=== PATIENT | male | born 1960 | race Hispanic/Latino ===

== ENCOUNTER 2018-10-10 23:47 | Inpatient (IN) | payer MEDICARE ==
[~2018-10-10 23:47] MED LIST: QUELICIN ONE; VERSED IV ONE
[2018-10-11] MEDS ORDERED: NACL 0.9% 1000 ML 1,000 ML ONE (00:02)
[2018-10-11] MEDS ORDERED: NACL 0.9% 1000 ML 1,000 ML IV ONE ×4 (00:11→03:12)
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
[2018-10-11] MEDS ORDERED: ATIVAN IV ONE (00:15)
[2018-10-11] MEDS ORDERED: ATIVAN ONE (00:18)
[2018-10-11 00:36] LABS: Hematocrit 43.2 % (35.5-45.6); Hemoglobin 13.9 gm/dl (11.8-15.2); Mean Corpuscular HGB Conc 32 % (32-34); Mean Corpuscular Volume 98 fl (84-94); Platelet Count 266 K/mm3 (140-440); Red Blood Count 4.42 M/mm3 (3.65-5.03); Red Cell Distribution Width 15.4 % (13.2-15.2)
[2018-10-11 00:54] LABS: Albumin 2.9 g/dL (3.9-5); Calcium 7.7 mg/dL (8.4-10.2)
[2018-10-11] MEDS: NACL 0.9% IV SCH ×2 (00:55→10:24)
[2018-10-11] MEDS: ATIVAN IV SCH ×2 (00:55→10:24)
[2018-10-11] MEDS: VIAFLEX EMPTY CONTAINER IV SCH ×2 (00:55→10:24)
[2018-10-11] MEDS ORDERED: fentaNYL DRIP Premix 100 ML IV SCH (01:00)
[2018-10-11] MEDS ORDERED: MAXIPIME/NS 2 GM/100 ML 2 GM/100 ML BAG IV ONE (01:03)
[2018-10-11] MEDS: LEVOPHED DRIP 4 MG/NS 250 ML 4 MG/250 ML BAG IV SCH ×4 (01:19→10:13)
--- NOTE | 2018-10-11 01:22 | XRay Report ---
PROCEDURE: XR CHEST 1V AP TECHNIQUE: 4 AP portable views of the chest HISTORY: Intubation COMPARISONS: None FINDINGS: There is an endotracheal tube in place with the tip 8 cm proximal to the sherri. The cardiomediastina l silhouette appears normal. The lungs are clear. The bones and soft tissues are unremarkable. IMPRESSION: The endotracheal tube appears adequately positioned No acute findings This document is electronically signed by Emy Stiles MD., Oct 11 2018 01:20:10 AM ET
[2018-10-11 02:04] LABS: Amorphous Crystals,Urine 1+; Bilirubin,Urine NEG (Negative); Blood,Urine MOD (Negative); Color,Urine Yellow (Yellow); Mucus,Urine FEW /HPF; Sperm,Urine 2+ /HPF (NP)
[2018-10-11 02:10] LABS: Cannabinoid Screen,Urine PRESUMPTIVE NEGATIVE; Cocaine Screen,Urine PRESUMPTIVE NEGATIVE; Methadone Screen,Urine PRESUMPTIVE NEGATIVE
[2018-10-11 02:10] LABS: Chol/HDL Ratio 3.84 %
[2018-10-11 02:26] LABS: Amphetamine Screen,Urine PRESUMPTIVE POSITIVE; Benzodiazepines Screen,Urine PRESUMPTIVE POSITIVE; Opiate Screen,Urine PRESUMPTIVE POSITIVE
[2018-10-11] MEDS ORDERED: NACL 0.9% 1000 ML 2,000 ML IV ONE (03:06)
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
--- NOTE | 2018-10-11 03:35 | Cat Scan Report ---
PROCEDURE: CT ANGIOGRAM OF THE CHEST FOR PULMONARY EMBOLISM TECHNIQUE: Computerized axial tomographic angiography of the chest and pulmonary arteries was perfor med after the IV injection of iodinated nonionic contrast. The image data was postprocessed using max imum intensity projection (MIP) and 2-dimensional multiplanar reformatted (MPR) techniques. The exami nation is specifically tailored to the evaluation of the pulmonary arteries per clinical request. Au tomated exposure control, adjustment of mA and/or kV according to patient size, or iterative reconstr uction dose optimization techniques were utilized. CPT G9637, 70161 HISTORY: Shortness of breath R06.02, chest pain unspecified R07.9 , COMPARISONS: None . FINDINGS: Heart and pericardium: Normal. Thoracic aorta: There is no thoracic aortic aneurysm or dissection.. Pulmonary vasculature: Normal. No pulmonary emboli. Lymph nodes: No enlarged thoracic lymph nodes. Lungs: There is endobronchial mucous plugging at the lung bases bilaterally greater on the left. The re are infiltrates at the left lung base. There are scattered fibrotic changes. The lungs are well ex panded.. Pleural space: There is no pleural effusion or pneumothorax.. Musculoskeletal structures: No significant abnormality. Upper abdominal structures: No significant abnormality. IMPRESSION: There is no pulmonary embolism. There is no thoracic aortic aneurysm or dissection.. There is endobronchial mucous plugging at the lung bases bilaterally greater on the left. There are i nfiltrates at the left lung base. There are scattered fibrotic changes. The lungs are well expanded.. There is no pleural effusion or pneumothorax.. This document is electronically signed by Ketan Galindo MD., Oct 11 2018 03:33:44 AM ET
[2018-10-11] MEDS ORDERED: D50W (25GM) Syringe IV PRN (03:57)
[2018-10-11] MEDS ORDERED: HumuLIN R 100 UNITS in NACL 0.9% 99 ML IV SCH (04:00)
[2018-10-11] MEDS ORDERED: SODIUM CHLORIDE FLUSH SYRINGE 10 ML IV PRN (04:04)
[2018-10-11] MEDS ORDERED: ZOFRAN IV PRN (04:04)
[2018-10-11] MEDS ORDERED: VANCOMYCIN 1,250 MG in NACL 0.9% 250ML 250 ML IV ONE (04:30)
[2018-10-11 04:58] LABS: Calcium 7.3 mg/dL (8.4-10.2)
[2018-10-11] MEDS ORDERED: NACL 0.9% 1000 ML 1,000 ML IV SCH (05:00)
[2018-10-11] MEDS ORDERED: D5NS 1,000 ML IV SCH (05:00)
[2018-10-11] MEDS ORDERED: VANCOMYCIN PHARMACY TO DOSE IV SCH (05:00)
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
[2018-10-11] MEDS ORDERED: HEPARIN SUB-Q SCH (06:00)
[2018-10-11 06:13] LABS: Band Neutrophils # (Manual) 4.4 K/mm3; Basophils % (Manual) 0 % (0.0-1.8); Eosinophils % (Manual) 0 % (0.0-4.3); Total Cells Counted 100
[2018-10-11 06:15] LABS: Giant Platelets Few
[2018-10-11] MEDS: ZOSYN/NS 3.375GM/50ML 3.375 GM/50 ML BAG IV SCH ×3 (06:39→21:43)
[2018-10-11] MEDS ORDERED: HEPARIN ONE (07:12)
[2018-10-11 08:37] LABS: Hematocrit 49.9 % (35.5-45.6); Hemoglobin 16.2 gm/dl (11.8-15.2)
[2018-10-11] MEDS ORDERED: LEVOPHED DRIP 4 MG/NS 250 ML 4 MG/250 ML BAG IV ONE (08:46)
[2018-10-11 08:49] LABS: INR 1.08 (0.87-1.13)
[2018-10-11 08:50] LABS: Partial Thromboplastin Time 24.1 Sec. (24.2-36.6)
[2018-10-11] MEDS ORDERED: HEPARIN/ 0.45% NACL-25,000 UNIT/500 ML 25,000 UNIT/500 ML BAG IV SCH (09:00)
[2018-10-11] MEDS ORDERED: D5W/0.45% NACL/KCL 20 MEQ 20 MEQ/1,000 ML BAG IV SCH ×2 (09:00)
[2018-10-11] MEDS ORDERED: TYLENOL PR ONE (09:00)
[2018-10-11] MEDS: TYLENOL PO PRN ×2 (09:02→13:40)
[2018-10-11] MEDS ORDERED: D5NS 1,000 ML IV ONE (09:12)
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
[2018-10-11] MEDS: PEPCID IV SCH ×2 (10:55→21:43)
[2018-10-11] MEDS: SODIUM CHLORIDE FLUSH SYRINGE 10 ML IV SCH ×2 (10:56→21:43)
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
[2018-10-11 11:34] LABS: Calcium 7.7 mg/dL (8.4-10.2)
[2018-10-11] MEDS ORDERED: MAGNESIUM SULFATE 3 GM in NACL 0.9% 100 ML IV ONE (12:36)
[2018-10-11] MEDS ORDERED: SUBLIMAZE IV PRN (13:00)
[2018-10-11 13:08] LABS: Calcium 7.5 mg/dL (8.4-10.2)
[2018-10-11] MEDS: fentaNYL DRIP Premix 2,000 MCG/100 ML BAG IV SCH (13:13)
[2018-10-11] MEDS: ZITHROMAX 500 MG in NACL 0.9% 250ML 250 ML IV SCH (13:14)
[2018-10-11] MEDS: DUONEB *Not for PRN Use IH SCH ×2 (13:28→20:08)
[2018-10-11] MEDS: HEPARIN SUB-Q SCH ×2 (13:41→21:44)
[2018-10-11] MEDS ORDERED: VASELINE LIP THERAPY TP PRN (14:00)
[2018-10-11] MEDS ORDERED: ARTIFICIAL TEARS OPHTH OINT OU PRN (14:00)
[2018-10-11] MEDS ORDERED: SIMPLE SYRUP FEEDTUBE PRN ×2 (14:12)
[2018-10-11] MEDS ORDERED: PANCREAZE DR 10,500 UNIT FEEDTUBE PRN (14:12)
[2018-10-11] MEDS ORDERED: SODIUM BICARBONATE FEEDTUBE PRN (14:12)
--- NOTE | 2018-10-11 14:27 | Event Note ---
Date: 10/11/18 Patient seen and examined admitted this am for drug overdose cont to monitor at ICU and cont plan and management as dictated in the H and P
[2018-10-11] MEDS ORDERED: NACL 0.45% 1000 ML 1,000 ML IV SCH (15:00)
--- NOTE | 2018-10-11 20:30 | XRay Report ---
PROCEDURE: XR ABDOMEN 1V AP TECHNIQUE: Low center chest was performed HISTORY: Confirmation of OGT COMPARISONS: None FINDINGS: Image demonstrates nasogastric tube to be present with tip in the region of the gastric body. The philippe e port is at the GE junction. The tube should be advanced approximately 6 cm. Lungs are emphysematous. Heart size is normal. IMPRESSION: Nasogastric tube in the appropriate location but needs to be advanced about 6 cm for the side port to be well past the GE junction.. This document is electronically signed by Faye Welsh MD., Oct 11 2018 08:28:25 PM ET
[2018-10-11 20:40] LABS: Calcium 7.9 mg/dL (8.4-10.2)
[2018-10-12] MEDS: fentaNYL DRIP Premix 2,000 MCG/100 ML BAG IV SCH ×2 (00:21→11:06)
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
--- NOTE | 2018-10-12 00:43 | Ultrasound Report ---
PROCEDURE: US ABDOMEN LIMITED HISTORY: abnormal LFT FINDINGS: Real-time ultrasound of the right upper quadrant was performed. The pancreas is not well seen. The proximal aorta measures 1.8 cm which is within normal limits. The mid and distal aorta are not seen. There is no evidence of gallstones. The gallbladder wall is not thickened at 0.2 cm. There is some pe richolecystic fluid.. The common duct measures 0.65 cm which is within normal limits. The liver appears normal in size and echotexture. The right kidney measures 11.8 x 4.9 x 5.5 cm. There is no evidence of hydronephrosis. IMPRESSION: No evidence of gallstones or gallbladder wall thickening. There is pericholecystic fluid without clear etiology. Cholecystitis is not excluded. Consider CT or HIDA for further evaluation This document is electronically signed by Carlton Cazares MD., Oct 12 2018 12:41:19 AM ET
[2018-10-12] MEDS ORDERED: TYLENOL PR PRN (01:26)
[2018-10-12] MEDS: DUONEB *Not for PRN Use IH SCH ×4 (02:49→19:00)
--- NOTE | 2018-10-12 04:06 | XRay Report ---
PROCEDURE: XR CHEST 1V AP TECHNIQUE: Chest radiograph single view. HISTORY: follow up respiratory failure COMPARISONS: None . FINDINGS: Heart: Normal. Mediastinum/Vessels: Normal. Lungs/Pleural space: The lungs are expanded. There is moderate COPD. There are no acute infiltrates, effusions or pneumothoraces. Bony thorax: No acute osseous abnormality. Life support devices: The endotracheal tube is in the mid trachea. NG tube is in the stomach... IMPRESSION: The heart size is normal.. The lungs are expanded. There is moderate COPD. There are no acute infiltrates, effusions or pneumothoraces. This document is electronically signed by Ketan Galindo MD., Oct 12 2018 04:04:37 AM ET
[2018-10-12 04:41] LABS: Hematocrit 43.4 % (35.5-45.6); Hemoglobin 14.5 gm/dl (11.8-15.2); Mean Corpuscular HGB Conc 33 % (32-34); Mean Corpuscular Volume 91 fl (84-94); Platelet Count 212 K/mm3 (140-440); Red Blood Count 4.77 M/mm3 (3.65-5.03); Red Cell Distribution Width 14.6 % (13.2-15.2)
[2018-10-12] MEDS: VANCOMYCIN/NS 1 GM/250 ML 1 GM/250 ML BAG IV SCH (05:15)
[2018-10-12] MEDS: ZOSYN/NS 3.375GM/50ML 3.375 GM/50 ML BAG IV SCH (05:15)
[2018-10-12] MEDS: HEPARIN SUB-Q SCH ×3 (05:16→21:40)
[2018-10-12 05:23] LABS: Creatine Kinase MB 48.3 ng/mL (0.0-4.0)
[2018-10-12 05:24] LABS: Albumin 2.6 g/dL (3.9-5); Calcium 8.1 mg/dL (8.4-10.2)
[2018-10-12] MEDS ORDERED: NACL 0.9% 250ML 250 ML IV ONE (05:33)
[2018-10-12] MEDS ORDERED: NACL 0.9% 1000 ML 1,000 ML IV SCH (06:00)
[2018-10-12 06:43] LABS: Band Neutrophils # (Manual) 9.5 K/mm3; Basophils % (Manual) 0 % (0.0-1.8); Eosinophils % (Manual) 0 % (0.0-4.3); Total Cells Counted 100
[2018-10-12 06:44] LABS: Anisocytosis 1+
--- NOTE | 2018-10-12 10:04 | Progress Note ---
Assessment and Plan Acute hypoxemic respiratory failure, on mechanical ventilator support. Drug overdose. Acute chronic obstructive pulmonary disease exacerbation. Witnessed seizure en route. Acute kidney injury. Leukocytosis. Hypercapnia. Hyperkalemia. Metabolic acidosis. Lactic acidosis. Non-ST elevation myocardial infarction. Elevated serum transaminases. - continue current set rate at 30/min on MVS - begin D5W with 2 AMPS NaHCO3/liter X 2 liters - nephrology consult re: azotemia - ID consult for severe sepsis with shock at presentation and leucocytosis - get ABG at 9pm tonight and reduce set rate if acid base balance is improved - daily SAT's & SBT assessment as tolerated - sedation target for RASS 0 to -1 (off sedation now) - continue bronchodilators with pulmonary hygiene per RT - continue GI & VTE prophylaxis - continue to wean supplemental oxygen to keep O2 sats 88-90% - Lung protective strategies - Daily ABGs/CXR for now - VAP bundle addressed - Continue cardioprotective measures - Replete electrolytes as indicated - Currently on Unasyn/Vancomycin, follow cultures and adjust antibiotics for ID/CALEB (Deescalate as indicated) - Tracheal aspirate, blood cultures are negative to date - Continue bronchodilators with pulmonary hygiene per RT - Edmondson catheter placed for acute urinary retention. Plan to discontinue edmondson in the next 24 hours and monitor - Update grand-daughter, who is the POA. Discussed the possibility of tracheostomy and PEG. - Continue full MVS - Monitor renal indices closely - Avoid nephrotoxic agents, adjust all medications for CrCL - Strict intake and output monitoring - Tube feedings - Aspiration precautions - Accuchecks with glycemic control. Target glucose of 140-180 mg/dL - Maintenance of sleep -wake cycle - Mobility as tolerated by hemodynamics - Influenza and pneumonia vaccination per protocol ..care plan discussed at length with RN/RT at the bedside ..discussed in ICU-IDT rounds PROGNOSIS: GUARDED CONDITION: CRITICAL CODE STATUS: FULL CODE The high probability of a clinically significant, sudden or life-threatening deterioration of the [respiratory, neurology, renal] system(s) required my full and direct attention, intervention and personal management. The aggregate critical care time was [32] minutes without overlap. Time includes spent on; [x] Data Review and interpretation [x] Patient assessment and monitoring of vital signs [x] Documentation [x] Medication orders and management Subjective Date of service: 10/12/18 Principal diagnosis: Ac hypercapnic hypoxemic Resp failure; Drug OD; AE-COPD; NINOSKA; Seizures Interval history: Patient is seen today for: Acute hypoxemic respiratory failure, on mechanical ventilator support; Drug overdose; Acute chronic obstructive pulmonary disease exacerbation; Witnessed seizure en route; Acute kidney injury; Leukocytosis; Hypercapnia. Seen and examined at bedside; 24-hour events reviewed; nursing and respiratory care staff consulted; no adverse overnight events reported to me; remains with AMS; resting peacefully in bed; No N/V/F/C; spoke with son who called from [place] and care plan discussed at length; off levophed now but still requiring high MV to compensate for acidosis Objective Vital Signs - 12hr 10/11/18 10/11/18 10/11/18 22:10 22:20 22:30 Temperature 100.3 F H Pulse Rate 116 H 120 H 127 H Pulse Rate [ Anterior Bilateral Throughout] Pulse Rate [ From Monitor] Respiratory 30 H 28 H 30 H Rate Respiratory Rate [Anterior Bilateral Throughout] Blood Pressure 110/74 129/82 113/76 O2 Sat by Pulse 96 95 93 Oximetry 10/11/18 10/11/18 10/11/18 22:40 22:50 23:00 Temperature Pulse Rate 113 H 115 H 117 H Pulse Rate [ Anterior Bilateral Throughout] Pulse Rate [ From Monitor] Respiratory 32 H 30 H 30 H Rate Respiratory Rate [Anterior Bilateral Throughout] Blood Pressure 113/76 111/74 133/81 O2 Sat by Pulse 95 95 93 Oximetry 10/11/18 10/11/18 10/11/18 23:10 23:20 23:21 Temperature 99.2 F Pulse Rate 122 H 115 H Pulse Rate [ Anterior Bilateral Throughout] Pulse Rate [ From Monitor] Respiratory 29 H 31 H Rate Respiratory Rate [Anterior Bilateral Throughout] Blood Pressure 133/81 127/87 O2 Sat by Pulse 95 95 Oximetry 10/11/18 10/11/18 10/11/18 23:22 23:30 23:40 Temperature Pulse Rate 115 H 115 H 121 H Pulse Rate [ Anterior Bilateral Throughout] Pulse Rate [ From Monitor] Respiratory 30 H 29 H Rate Respiratory Rate [Anterior Bilateral Throughout] Blood Pressure 127/87 130/82 130/82 O2 Sat by Pulse 95 95 Oximetry 10/11/18 10/12/18 10/12/18 23:50 00:00 00:10 Temperature Pulse Rate 114 H 114 H 116 H Pulse Rate [ Anterior Bilateral Throughout] Pulse Rate [ 114 H From Monitor] Respiratory 30 H 31 H 31 H Rate Respiratory Rate [Anterior Bilateral Throughout] Blood Pressure 127/87 137/83 137/83 O2 Sat by Pulse 95 94 96 Oximetry 10/12/18 10/12/18 10/12/18 00:14 00:20 00:30 Temperature Pulse Rate 114 H 117 H 115 H Pulse Rate [ Anterior Bilateral Throughout] Pulse Rate [ From Monitor] Respiratory 29 H 30 H 30 H Rate Respiratory Rate [Anterior Bilateral Throughout] Blood Pressure 115/84 115/84 127/79 O2 Sat by Pulse 96 95 94 Oximetry 10/12/18 10/12/18 10/12/18 00:40 00:50 01:00 Temperature Pulse Rate 117 H 116 H 117 H Pulse Rate [ Anterior Bilateral Throughout] Pulse Rate [ From Monitor] Respiratory 30 H 30 H 30 H Rate Respiratory Rate [Anterior Bilateral Throughout] Blood Pressure 127/79 115/84 124/83 O2 Sat by Pulse 95 96 94 Oximetry 10/12/18 10/12/18 10/12/18 01:10 01:20 01:30 Temperature Pulse Rate 116 H 115 H 116 H Pulse Rate [ Anterior Bilateral Throughout] Pulse Rate [ From Monitor] Respiratory 30 H 28 H 29 H Rate Respiratory Rate [Anterior Bilateral Throughout] Blood Pressure 124/83 137/86 124/79 O2 Sat by Pulse 95 95 94 Oximetry 10/12/18 10/12/18 10/12/18 01:34 01:40 01:50 Temperature 100.9 F H Pulse Rate 115 H 116 H Pulse Rate [ Anterior Bilateral Throughout] Pulse Rate [ From Monitor] Respiratory 27 H 30 H Rate Respiratory Rate [Anterior Bilateral Throughout] Blood Pressure 124/79 111/84 O2 Sat by Pulse 95 95 Oximetry 10/12/18 10/12/18 10/12/18 02:00 02:10 02:20 Temperature Pulse Rate 116 H 116 H 133 H Pulse Rate [ Anterior Bilateral Throughout] Pulse Rate [ 113 H From Monitor] Respiratory 28 H 27 H 30 H Rate Respiratory Rate [Anterior Bilateral Throughout] Blood Pressure 120/82 120/82 117/84 O2 Sat by Pulse 92 96 96 Oximetry 10/12/18 10/12/18 10/12/18 02:30 02:40 02:50 Temperature Pulse Rate 113 H 123 H 125 H Pulse Rate [ Anterior Bilateral Throughout] Pulse Rate [ From Monitor] Respiratory 22 33 H 28 H Rate Respiratory Rate [Anterior Bilateral Throughout] Blood Pressure 125/88 125/88 127/87 O2 Sat by Pulse 95 96 96 Oximetry 10/12/18 10/12/18 10/12/18 02:57 03:00 03:06 Temperature Pulse Rate 117 H Pulse Rate [ 125 H 122 H Anterior Bilateral Throughout] Pulse Rate [ From Monitor] Respiratory 32 H Rate Respiratory 30 H 32 H Rate [Anterior Bilateral Throughout] Blood Pressure 134/100 O2 Sat by Pulse 93 Oximetry 10/12/18 10/12/18 10/12/18 03:10 03:18 03:20 Temperature 97.6 F 100.9 F H Pulse Rate 118 H 115 H Pulse Rate [ Anterior Bilateral Throughout] Pulse Rate [ From Monitor] Respiratory 29 H 32 H Rate Respiratory Rate [Anterior Bilateral Throughout] Blood Pressure 134/100 146/89 O2 Sat by Pulse 96 96 Oximetry 10/12/18 10/12/18 10/12/18 03:30 03:40 03:50 Temperature Pulse Rate 118 H 117 H 119 H Pulse Rate [ Anterior Bilateral Throughout] Pulse Rate [ From Monitor] Respiratory 30 H 32 H 30 H Rate Respiratory Rate [Anterior Bilateral Throughout] Blood Pressure 145/90 145/90 161/88 O2 Sat by Pulse 95 97 96 Oximetry 10/12/18 10/12/18 10/12/18 04:00 04:10 04:20 Temperature Pulse Rate 119 H 117 H 117 H Pulse Rate [ Anterior Bilateral Throughout] Pulse Rate [ 113 H From Monitor] Respiratory 32 H 29 H 30 H Rate Respiratory Rate [Anterior Bilateral Throughout] Blood Pressure 153/85 153/85 143/79 O2 Sat by Pulse 95 97 96 Oximetry 10/12/18 10/12/18 10/12/18 04:30 04:40 04:50 Temperature Pulse Rate 119 H 118 H 121 H Pulse Rate [ Anterior Bilateral Throughout] Pulse Rate [ From Monitor] Respiratory 32 H 33 H 39 H Rate Respiratory Rate [Anterior Bilateral Throughout] Blood Pressure 150/85 150/85 150/85 O2 Sat by Pulse 95 96 97 Oximetry 10/12/18 10/12/18 10/12/18 05:00 05:10 05:20 Temperature 99.8 F H Pulse Rate 121 H 122 H 126 H Pulse Rate [ Anterior Bilateral Throughout] Pulse Rate [ From Monitor] Respiratory 37 H 37 H 28 H Rate Respiratory Rate [Anterior Bilateral Throughout] Blood Pressure 165/94 165/94 151/92 O2 Sat by Pulse 96 97 96 Oximetry 10/12/18 10/12/18 10/12/18 05:30 05:40 05:50 Temperature Pulse Rate 130 H 125 H 127 H Pulse Rate [ Anterior Bilateral Throughout] Pulse Rate [ From Monitor] Respiratory 25 H 28 H 25 H Rate Respiratory Rate [Anterior Bilateral Throughout] Blood Pressure 136/93 136/93 126/88 O2 Sat by Pulse 93 96 96 Oximetry 10/12/18 10/12/18 10/12/18 06:00 06:10 06:20 Temperature Pulse Rate 114 H 113 H 114 H Pulse Rate [ Anterior Bilateral Throughout] Pulse Rate [ 115 H From Monitor] Respiratory 20 25 H 25 H Rate Respiratory Rate [Anterior Bilateral Throughout] Blood Pressure 133/80 133/80 134/74 O2 Sat by Pulse 93 97 97 Oximetry 10/12/18 10/12/18 10/12/18 06:30 06:40 06:50 Temperature Pulse Rate 115 H 124 H 111 H Pulse Rate [ Anterior Bilateral Throughout] Pulse Rate [ From Monitor] Respiratory 24 23 25 H Rate Respiratory Rate [Anterior Bilateral Throughout] Blood Pressure 120/81 120/81 129/84 O2 Sat by Pulse 95 98 98 Oximetry 10/12/18 10/12/18 10/12/18 07:00 07:10 07:20 Temperature 100 F H Pulse Rate 114 H 118 H 116 H Pulse Rate [ Anterior Bilateral Throughout] Pulse Rate [ From Monitor] Respiratory 21 26 H 24 Rate Respiratory Rate [Anterior Bilateral Throughout] Blood Pressure 126/89 126/89 126/83 O2 Sat by Pulse 95 98 98 Oximetry 10/12/18 10/12/18 10/12/18 07:30 07:40 07:50 Temperature Pulse Rate 122 H 121 H 132 H Pulse Rate [ Anterior Bilateral Throughout] Pulse Rate [ From Monitor] Respiratory 22 26 H 22 Rate Respiratory Rate [Anterior Bilateral Throughout] Blood Pressure 135/74 135/74 124/69 O2 Sat by Pulse 96 96 96 Oximetry 10/12/18 10/12/18 10/12/18 08:00 08:10 08:20 Temperature Pulse Rate 114 H 135 H 157 H Pulse Rate [ 113 H Anterior Bilateral Throughout] Pulse Rate [ From Monitor] Respiratory 21 25 H 30 H Rate Respiratory 21 Rate [Anterior Bilateral Throughout] Blood Pressure 123/76 126/83 122/78 O2 Sat by Pulse 95 99 97 Oximetry 10/12/18 10/12/18 10/12/18 08:30 08:33 08:40 Temperature Pulse Rate 118 H 115 H Pulse Rate [ 118 H Anterior Bilateral Throughout] Pulse Rate [ From Monitor] Respiratory 30 H 30 H Rate Respiratory 30 H Rate [Anterior Bilateral Throughout] Blood Pressure 122/78 122/51 O2 Sat by Pulse 94 97 Oximetry 10/12/18 10/12/18 10/12/18 08:50 09:00 09:10 Temperature Pulse Rate 121 H 118 H 130 H Pulse Rate [ Anterior Bilateral Throughout] Pulse Rate [ From Monitor] Respiratory 30 H 30 H 30 H Rate Respiratory Rate [Anterior Bilateral Throughout] Blood Pressure 110/77 113/74 122/78 O2 Sat by Pulse 97 95 97 Oximetry 10/12/18 10/12/18 10/12/18 09:20 09:30 09:40 Temperature Pulse Rate 119 H 116 H 119 H Pulse Rate [ Anterior Bilateral Throughout] Pulse Rate [ From Monitor] Respiratory 30 H 30 H 30 H Rate Respiratory Rate [Anterior Bilateral Throughout] Blood Pressure 124/76 112/85 113/74 O2 Sat by Pulse 97 95 97 Oximetry Constitutional: no acute distress, other (middle aged but chronically ill looking CM; Atraumatic) Eyes: non-icteric ENT: oropharynx moist, other (ETT 23 cm SHELBI) Neck: supple, no lymphadenopathy, no JVD Effort: mildly labored Ascultation: Bilateral: diminished breath sounds, rhonchi Percussion: Bilateral: not dull Cardiovascular: irregular rhythm, other (No R/M) Gastrointestinal: normoactive bowel sounds, soft, non-tender, non-distended Integumentary: other (poor turgor) Extremities: no cyanosis, no edema, pink and warm, pulses normal, no ischemia or petechiae Neurologic: unable to assess Psychiatric: other (unable to assess re: AMS) CBC and BMP: 10/15/18 12:00 10/15/18 12:00 ABG, PT/INR, D-dimer: ABG POC ABG pH 7.322 (7.35-7.45) L 10/12/18 08:09 POC ABG pCO2 46.5 (35-45) H 10/12/18 08:09 POC ABG pO2 99 (80-105) 10/12/18 08:09 POC ABG HCO3 24.1 (22-26 mml/L) 10/12/18 08:09 POC ABG Total CO2 25 (23-27mmol/L) 10/12/18 08:09 POC ABG O2 Sat 97 10/12/18 08:09 PT/INR, D-dimer PT 14.7 Sec. (12.2-14.9) 10/11/18 08:29 INR 1.08 (0.87-1.13) 10/11/18 08:29 Abnormal lab findings: Abnormal Labs 10/11/18 10/11/18 10/11/18 00:16 00:16 00:16 WBC 20.1 H Hgb Hct MCV 98 H RDW 15.4 H Seg Neuts % (Manual) Lymphocytes % (Manual) 5.0 L Monocytes % (Manual) 25.0 H Seg Neutrophils # Man 9.2 H Lymphocytes # (Manual) 1.0 L Monocytes # (Manual) 5.0 H APTT POC ABG pH POC ABG pCO2 POC ABG pO2 Sodium Potassium 5.8 H Chloride Carbon Dioxide 17 L BUN Creatinine 2.2 H Glucose 348 H POC Glucose Lactic Acid 13.70 H* Calcium 7.7 L Phosphorus Total Bilirubin 1.50 H AST 179 H ALT 110 H Total Creatine Kinase 324 H CK-MB (CK-2) Troponin T 0.257 H* Total Protein 5.9 L Albumin 2.9 L HDL Cholesterol 19 L Salicylates Acetaminophen 10/11/18 10/11/18 10/11/18 00:16 00:16 01:21 WBC Hgb Hct MCV RDW Seg Neuts % (Manual) Lymphocytes % (Manual) Monocytes % (Manual) Seg Neutrophils # Man Lymphocytes # (Manual) Monocytes # (Manual) APTT POC ABG pH 7.110 L POC ABG pCO2 50.3 H POC ABG pO2 65 L Sodium Potassium Chloride Carbon Dioxide BUN Creatinine Glucose POC Glucose Lactic Acid Calcium Phosphorus Total Bilirubin AST ALT Total Creatine Kinase CK-MB (CK-2) Troponin T Total Protein Albumin HDL Cholesterol Salicylates < 0.3 L Acetaminophen < 5.0 L 10/11/18 10/11/18 10/11/18 01:22 03:27 04:14 WBC Hgb Hct MCV RDW Seg Neuts % (Manual) Lymphocytes % (Manual) Monocytes % (Manual) Seg Neutrophils # Man Lymphocytes # (Manual) Monocytes # (Manual) APTT POC ABG pH POC ABG pCO2 POC ABG pO2 Sodium Potassium Chloride Carbon Dioxide BUN Creatinine Glucose POC Glucose Lactic Acid 8.50 H* 4.10 H* Calcium Phosphorus 4.90 H Total Bilirubin AST ALT Total Creatine Kinase CK-MB (CK-2) Troponin T Total Protein Albumin HDL Cholesterol Salicylates Acetaminophen 10/11/18 10/11/18 10/11/18 04:14 04:14 04:14 WBC Hgb Hct MCV RDW Seg Neuts % (Manual) Lymphocytes % (Manual) Monocytes % (Manual) Seg Neutrophils # Man Lymphocytes # (Manual) Monocytes # (Manual) APTT POC ABG pH POC ABG pCO2 POC ABG pO2 Sodium Potassium 5.6 H Chloride Carbon Dioxide 19 L BUN Creatinine 1.6 H Glucose 329 H POC Glucose 328 H Lactic Acid Calcium 7.3 L Phosphorus Total Bilirubin AST ALT Total Creatine Kinase CK-MB (CK-2) Troponin T 1.130 H* D Total Protein Albumin HDL Cholesterol Salicylates Acetaminophen 10/11/18 10/11/18 10/11/18 05:10 05:32 05:58 WBC Hgb Hct MCV RDW Seg Neuts % (Manual) Lymphocytes % (Manual) Monocytes % (Manual) Seg Neutrophils # Man Lymphocytes # (Manual) Monocytes # (Manual) APTT POC ABG pH 7.259 L POC ABG pCO2 45.6 H POC ABG pO2 Sodium Potassium Chloride 108.6 H Carbon Dioxide 20 L BUN Creatinine 1.8 H Glucose 269 H POC Glucose 273 H Lactic Acid Calcium 7.0 L Phosphorus Total Bilirubin AST ALT Total Creatine Kinase CK-MB (CK-2) Troponin T Total Protein Albumin HDL Cholesterol Salicylates Acetaminophen 10/11/18 10/11/18 10/11/18 05:58 06:39 07:00 WBC Hgb Hct MCV RDW Seg Neuts % (Manual) Lymphocytes % (Manual) Monocytes % (Manual) Seg Neutrophils # Man Lymphocytes # (Manual) Monocytes # (Manual) APTT POC ABG pH POC ABG pCO2 POC ABG pO2 Sodium Potassium Chloride Carbon Dioxide BUN Creatinine Glucose POC Glucose 247 H Lactic Acid 3.20 H* 3.30 H* Calcium Phosphorus Total Bilirubin AST ALT Total Creatine Kinase CK-MB (CK-2) Troponin T Total Protein Albumin HDL Cholesterol Salicylates Acetaminophen 10/11/18 10/11/18 10/11/18 07:00 07:30 07:36 WBC Hgb Hct MCV RDW Seg Neuts % (Manual) Lymphocytes % (Manual) Monocytes % (Manual) Seg Neutrophils # Man Lymphocytes # (Manual) Monocytes # (Manual) APTT POC ABG pH POC ABG pCO2 POC ABG pO2 Sodium 146 H Potassium Chloride 112.1 H Carbon Dioxide 21 L BUN Creatinine 1.6 H Glucose 218 H POC Glucose Lactic Acid 3.20 H* Calcium 7.0 L Phosphorus Total Bilirubin AST ALT Total Creatine Kinase CK-MB (CK-2) Troponin T 1.020 H* Total Protein Albumin HDL Cholesterol Salicylates Acetaminophen 10/11/18 10/11/18 10/11/18 07:43 08:29 08:29 WBC Hgb 16.2 H Hct 49.9 H D MCV RDW Seg Neuts % (Manual) Lymphocytes % (Manual) Monocytes % (Manual) Seg Neutrophils # Man Lymphocytes # (Manual) Monocytes # (Manual) APTT POC ABG pH POC ABG pCO2 POC ABG pO2 Sodium Potassium Chloride Carbon Dioxide BUN Creatinine Glucose POC Glucose 174 H Lactic Acid 3.90 H* Calcium Phosphorus Total Bilirubin AST ALT Total Creatine Kinase CK-MB (CK-2) Troponin T Total Protein Albumin HDL Cholesterol Salicylates Acetaminophen 10/11/18 10/11/18 10/11/18 08:29 08:42 11:05 WBC Hgb Hct MCV RDW Seg Neuts % (Manual) Lymphocytes % (Manual) Monocytes % (Manual) Seg Neutrophils # Man Lymphocytes # (Manual) Monocytes # (Manual) APTT 24.1 L POC ABG pH POC ABG pCO2 POC ABG pO2 Sodium 147 H Potassium Chloride 113.3 H Carbon Dioxide 21 L BUN Creatinine 1.7 H Glucose 119 H POC Glucose 164 H Lactic Acid Calcium 7.7 L Phosphorus Total Bilirubin AST ALT Total Creatine Kinase CK-MB (CK-2) Troponin T Total Protein Albumin HDL Cholesterol Salicylates Acetaminophen 10/11/18 10/11/18 10/11/18 11:05 11:06 12:30 WBC Hgb Hct MCV RDW Seg Neuts % (Manual) Lymphocytes % (Manual) Monocytes % (Manual) Seg Neutrophils # Man Lymphocytes # (Manual) Monocytes # (Manual) APTT POC ABG pH POC ABG pCO2 POC ABG pO2 Sodium 148 H Potassium Chloride 113.4 H Carbon Dioxide 21 L BUN Creatinine 1.6 H Glucose 119 H POC Glucose 116 H Lactic Acid 3.20 H* Calcium 7.5 L Phosphorus Total Bilirubin AST ALT Total Creatine Kinase CK-MB (CK-2) Troponin T Total Protein Albumin HDL Cholesterol Salicylates Acetaminophen 10/11/18 10/11/18 10/11/18 12:30 13:16 13:25 WBC Hgb Hct MCV RDW Seg Neuts % (Manual) Lymphocytes % (Manual) Monocytes % (Manual) Seg Neutrophils # Man Lymphocytes # (Manual) Monocytes # (Manual) APTT POC ABG pH 7.247 L POC ABG pCO2 48.4 H POC ABG pO2 Sodium Potassium Chloride Carbon Dioxide BUN Creatinine Glucose POC Glucose 112 H Lactic Acid 2.70 H* Calcium Phosphorus Total Bilirubin AST ALT Total Creatine Kinase CK-MB (CK-2) Troponin T Total Protein Albumin HDL Cholesterol Salicylates Acetaminophen 10/11/18 10/11/18 10/11/18 14:41 15:27 16:13 WBC Hgb Hct MCV RDW Seg Neuts % (Manual) Lymphocytes % (Manual) Monocytes % (Manual) Seg Neutrophils # Man Lymphocytes # (Manual) Monocytes # (Manual) APTT POC ABG pH POC ABG pCO2 POC ABG pO2 Sodium Potassium Chloride Carbon Dioxide BUN Creatinine Glucose POC Glucose 127 H 141 H 134 H Lactic Acid Calcium Phosphorus Total Bilirubin AST ALT Total Creatine Kinase CK-MB (CK-2) Troponin T Total Protein Albumin HDL Cholesterol Salicylates Acetaminophen 10/11/18 10/11/18 10/11/18 17:18 18:23 19:38 WBC Hgb Hct MCV RDW Seg Neuts % (Manual) Lymphocytes % (Manual) Monocytes % (Manual) Seg Neutrophils # Man Lymphocytes # (Manual) Monocytes # (Manual) APTT POC ABG pH POC ABG pCO2 POC ABG pO2 Sodium 148 H Potassium Chloride 112.7 H Carbon Dioxide BUN 23 H Creatinine Glucose 143 H POC Glucose 132 H 129 H Lactic Acid Calcium 7.9 L Phosphorus Total Bilirubin AST ALT Total Creatine Kinase CK-MB (CK-2) Troponin T Total Protein Albumin HDL Cholesterol Salicylates Acetaminophen 10/11/18 10/11/18 10/11/18 20:19 20:36 21:01 WBC Hgb Hct MCV RDW Seg Neuts % (Manual) Lymphocytes % (Manual) Monocytes % (Manual) Seg Neutrophils # Man Lymphocytes # (Manual) Monocytes # (Manual) APTT POC ABG pH 7.281 L POC ABG pCO2 POC ABG pO2 Sodium Potassium Chloride Carbon Dioxide BUN Creatinine Glucose POC Glucose 129 H 151 H Lactic Acid Calcium Phosphorus Total Bilirubin AST ALT Total Creatine Kinase CK-MB (CK-2) Troponin T Total Protein Albumin HDL Cholesterol Salicylates Acetaminophen 10/11/18 10/11/18 10/12/18 22:04 23:15 01:18 WBC Hgb Hct MCV RDW Seg Neuts % (Manual) Lymphocytes % (Manual) Monocytes % (Manual) Seg Neutrophils # Man Lymphocytes # (Manual) Monocytes # (Manual) APTT POC ABG pH POC ABG pCO2 POC ABG pO2 Sodium Potassium Chloride Carbon Dioxide BUN Creatinine Glucose POC Glucose 147 H 143 H 158 H Lactic Acid Calcium Phosphorus Total Bilirubin AST ALT Total Creatine Kinase CK-MB (CK-2) Troponin T Total Protein Albumin HDL Cholesterol Salicylates Acetaminophen 10/12/18 10/12/18 10/12/18 02:13 03:18 04:04 WBC Hgb Hct MCV RDW Seg Neuts % (Manual) Lymphocytes % (Manual) Monocytes % (Manual) Seg Neutrophils # Man Lymphocytes # (Manual) Monocytes # (Manual) APTT POC ABG pH POC ABG pCO2 POC ABG pO2 Sodium 147 H Potassium Chloride 111.1 H Carbon Dioxide BUN 30 H Creatinine 2.0 H Glucose 154 H POC Glucose 148 H 142 H Lactic Acid Calcium 8.1 L Phosphorus Total Bilirubin AST 269 H ALT 204 H Total Creatine Kinase 3647 H CK-MB (CK-2) 48.3 H Troponin T 2.230 H* D Total Protein 5.8 L Albumin 2.6 L HDL Cholesterol Salicylates Acetaminophen 10/12/18 10/12/18 10/12/18 04:04 04:08 04:19 WBC 24.4 H Hgb Hct MCV RDW Seg Neuts % (Manual) 32.0 L Lymphocytes % (Manual) Monocytes % (Manual) 8.0 H Seg Neutrophils # Man 7.8 H Lymphocytes # (Manual) Monocytes # (Manual) 2.0 H APTT POC ABG pH 7.317 L POC ABG pCO2 49.3 H POC ABG pO2 Sodium Potassium Chloride Carbon Dioxide BUN Creatinine Glucose POC Glucose 143 H Lactic Acid Calcium Phosphorus Total Bilirubin AST ALT Total Creatine Kinase CK-MB (CK-2) Troponin T Total Protein Albumin HDL Cholesterol Salicylates Acetaminophen 10/12/18 10/12/18 10/12/18 05:29 06:52 08:09 WBC Hgb Hct MCV RDW Seg Neuts % (Manual) Lymphocytes % (Manual) Monocytes % (Manual) Seg Neutrophils # Man Lymphocytes # (Manual) Monocytes # (Manual) APTT POC ABG pH 7.322 L POC ABG pCO2 46.5 H POC ABG pO2 Sodium Potassium Chloride Carbon Dioxide BUN Creatinine Glucose POC Glucose 196 H 226 H Lactic Acid Calcium Phosphorus Total Bilirubin AST ALT Total Creatine Kinase CK-MB (CK-2) Troponin T Total Protein Albumin HDL Cholesterol Salicylates Acetaminophen 10/12/18 08:38 WBC Hgb Hct MCV RDW Seg Neuts % (Manual) Lymphocytes % (Manual) Monocytes % (Manual) Seg Neutrophils # Man Lymphocytes # (Manual) Monocytes # (Manual) APTT POC ABG pH POC ABG pCO2 POC ABG pO2 Sodium Potassium Chloride Carbon Dioxide BUN Creatinine Glucose POC Glucose 138 H Lactic Acid Calcium Phosphorus Total Bilirubin AST ALT Total Creatine Kinase CK-MB (CK-2) Troponin T Total Protein Albumin HDL Cholesterol Salicylates Acetaminophen Chest x-ray: image reviewed (COPD; ETT in good position) Allied health notes reviewed: nursing
--- NOTE | 2018-10-12 10:20 | Progress Note ---
Assessment and Plan Echo reviewed - TDS, mild LVH, severe global hypokinesis of LV, unable to estimate LVEF, trace TR. No current clinical evidence of acutely decompensated HF. Initiate GDMT as BPs permit. Heparin gtt and/or anti-platelet therapy is indicated in setting of NSTEMI. However, pt with reported history of hemorrhagic CVA in 03/2018 which required bore holes and craniotomy at [place]. Head CT currently with NAF. Will attempt to obtain medical records from [place] and continue with conservative cardiac management at this time until records are obtained. No statin at this time in setting of elevated LFTs. The patient has been seen in conjunction with Dr. Shahid who agrees with the assessment and plan of care. - Patient Problems (1) Altered mental state Current Visit: Yes Status: Acute Qualifiers: Altered mental status type: unspecified Qualified Code(s): R41.82 - Altered mental status, unspecified (2) Opiate overdose Current Visit: Yes Status: Suspected (3) Seizure Current Visit: Yes Status: Acute (4) Acute respiratory failure Current Visit: Yes Status: Acute (5) NSTEMI (non-ST elevated myocardial infarction) Current Visit: Yes Status: Acute (6) 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 Current Visit: Yes Status: Chronic (7) Hypotension Current Visit: Yes Status: Acute Qualifiers: Hypotension type: unspecified hypotension type Qualified Code(s): I95.9 - Hypotension, unspecified (8) Acute renal insufficiency Current Visit: Yes Status: Acute (9) Lactic acid acidosis Current Visit: Yes Status: Acute (10) Diabetes mellitus with hyperglycemia Current Visit: Yes Status: Acute (11) Elevated liver enzymes Current Visit: Yes Status: Acute (12) History of hepatitis Current Visit: Yes Status: Chronic (13) History of rheumatic fever as a child Current Visit: Yes Status: Chronic (14) Polysubstance abuse Current Visit: Yes Status: Chronic (15) Tobacco use Current Visit: Yes Status: Chronic (16) Cardiomyopathy Current Visit: Yes Status: Chronic (17) Sepsis Current Visit: Yes Status: Acute Qualifiers: Sepsis type: sepsis due to unspecified organism Qualified Code(s): A41.9 - Sepsis, unspecified organism Subjective Date of service: 10/12/18 Principal diagnosis: Ac hypercapnic hypoxemic Resp failure; Drug OD; AE-COPD; NINOSKA; Seizures Interval history: Pt resting in bed, not sedated, agitated, no purposeful response to commands noted. in ST with freq PACs and PVCs on telemetry. currently weaned off vasopressors. Objective Last Vital Signs Temp 100 F H 10/12/18 07:00 Pulse 119 H 10/12/18 09:40 Resp 30 H 10/12/18 09:40 BP 113/74 10/12/18 09:40 Pulse Ox 97 10/12/18 09:40 - Physical Examination General: Other (intubated) Cardiac: Positive: Regular Rhythm, S1/S2, Tachycardia Lungs: Positive: Decreased Breath Sounds, Ventilated Respirations Neuro: Positive: Other (intubated) Abdomen: Negative: Tender Skin: Negative: Rash Extremities: Present: Other (chronic skin changes noted bilaterally ) - Labs and Meds Cardiac Enzymes 10/12/18 Range/Units 04:04 AST 269 H (5-40) units/L CK-MB (CK-2) 48.3 H (0.0-4.0) ng/mL CBC 10/12/18 Range/Units 04:04 WBC 24.4 H (4.5-11.0) K/mm3 RBC 4.77 (3.65-5.03) M/mm3 Hgb 14.5 (11.8-15.2) gm/dl Hct 43.4 D (35.5-45.6) % Plt Count 212 (140-440) K/mm3 Comprehensive Metabolic Panel 10/11/18 10/11/18 10/11/18 Range/Units 11:05 12:30 19:38 Sodium 147 H 148 H 148 H (137-145) mmol/L Potassium 4.5 4.5 4.5 (3.6-5.0) mmol/L Chloride 113.3 H 113.4 H 112.7 H (98-107) mmol/L Carbon Dioxide 21 L 21 L 22 (22-30) mmol/L BUN 19 19 23 H (9-20) mg/dL Creatinine 1.7 H 1.6 H 1.5 (0.8-1.5) mg/dL Glucose 119 H 119 H 143 H (75-100) mg/dL Calcium 7.7 L 7.5 L 7.9 L (8.4-10.2) mg/dL AST (5-40) units/L ALT (7-56) units/L Alkaline Phosphatase (35-129) units/L Total Protein (6.3-8.2) g/dL Albumin (3.9-5) g/dL 10/12/18 Range/Units 04:04 Sodium 147 H (137-145) mmol/L Potassium 4.6 (3.6-5.0) mmol/L Chloride 111.1 H (98-107) mmol/L Carbon Dioxide 26 (22-30) mmol/L BUN 30 H (9-20) mg/dL Creatinine 2.0 H (0.8-1.5) mg/dL Glucose 154 H (75-100) mg/dL Calcium 8.1 L (8.4-10.2) mg/dL AST 269 H (5-40) units/L ALT 204 H (7-56) units/L Alkaline Phosphatase 95 (35-129) units/L Total Protein 5.8 L (6.3-8.2) g/dL Albumin 2.6 L (3.9-5) g/dL - Imaging and Cardiology EKG: report reviewed, image reviewed Echo: report reviewed - Telemetry EKG Rhythm: Sinus Tachycardia - EKG Sinus rhythms and dysrhythmias: sinus rhythm
[2018-10-12] MEDS: PEPCID IV SCH ×2 (11:03→21:40)
[2018-10-12] MEDS: ZITHROMAX 500 MG in NACL 0.9% 250ML 250 ML IV SCH (11:04)
[2018-10-12] MEDS: SODIUM CHLORIDE FLUSH SYRINGE 10 ML IV SCH ×2 (11:05→22:51)
[2018-10-12] MEDS: ZOSYN/NS 2.25 GM/50ML 2.25 GM/50 ML BAG IV SCH ×2 (13:07→18:35)
--- NOTE | 2018-10-12 13:53 | Progress Note ---
Assessment and Plan Severe sepsis with shock -Probably secondary to pneumonia -On sepsis protocol -On IV broad-spectrum antibiotics with Vanc and Zosyn -On IV Levophed -Blood and sputum cultures pending Acute respiratory failure with hypoxia and hypercapnia -Probably secondary to acute COPD/asthma exacerbation -Status post intubation on mechanical ventilator -Pulmonology consulted Hyperglycemia, not in DKA -s/p insulin drip Acute toxic/metabolic encephalopathy -Secondary to drug overdose versus sepsis/DKA -Head CT scan negative Seizure -On IV lorazepam drip Elevated troponin -Probably secondary to demand ischemia from acute process -We'll cont serial troponin level monitoring -Echocardiogram for further evaluation -Cardiology consulted, recommended medical Mx for now, ARF -On IV fluid, will cont to monitor creatinine level Hyperkalemia -On IV fluid, will monitor potassium level Abnormal LFT -Probably due to chronic hepatitis C virus infection -Abdominal US to assess for cirrhosis Severe protein calorie malnutrition -Dietitian consulted DVT prophylaxis with heparin and GI prophylaxis with famotidine Disposition: Patient will be admitted to the ICU I spent 35 minutes providing critical care to this seriously ill patient who req uires frequent reassessments of his cardiovascular, respiratory and neurologic status. Brief History: Patient is a 58-year-old male who was brought to the ED by EMS on account of altered mental status. It was reported that patient was found unresponsive by friends and family. Patient's last known well time was 10:30 PM on 10/10/18. He was given Narcan by EMS en route to the hospital with minimal response. Patient began to seize as EMS pulled into the hospital. Per report, family told EMS that the patient overdosed and has been using Dilaudid. He was intubated in the ER to protect airway, admitted to ICU for further evaluation. Subjective Date of service: 10/12/18 Principal diagnosis: Ac hypercapnic hypoxemic Resp failure; Drug OD; AE-COPD; NINOSKA; Seizures Interval history: Patient seen and examined' discussed with family at bedside Patient remained intubated and sedated Objective - Exam Narrative Exam: General appearance: Present: no acute distress, other (patient is intubated and sedated) - EENT Eyes: Present: irregular pupil (sluggish) ENT: other (patient is intubated) - Neck Neck: Present: supple - Respiratory Respiratory effort: normal Respiratory: bilateral: CTA - Cardiovascular Rhythm: regular (with tachycardia) Heart Sounds: Present: S1 & S2 - Extremities Extremities: pulses symmetrical, No edema - Abdominal General gastrointestinal: Present: soft, non-distended, normal bowel sounds Male genitourinary: Present: deferred - Integumentary Integumentary: Present: clear, warm, dry - Musculoskeletal Musculoskeletal: other (unable to assess because patient is intubated and sedated) - Psychiatric Psychiatric: other (unable to assess because patient is intubated and sedated) - Neurologic Neurologic: other (unable to assess because patient is intubated and sedated) - Constitutional Vitals: Vital Signs - 12hr 10/12/18 10/12/18 10/12/18 02:00 02:10 02:20 Temperature Pulse Rate 116 H 116 H 133 H Pulse Rate [ Anterior Bilateral Throughout] Pulse Rate [ 113 H From Monitor] Respiratory 28 H 27 H 30 H Rate Respiratory Rate [Anterior Bilateral Throughout] Blood Pressure 120/82 120/82 117/84 O2 Sat by Pulse 92 96 96 Oximetry 10/12/18 10/12/18 10/12/18 02:30 02:40 02:50 Temperature Pulse Rate 113 H 123 H 125 H Pulse Rate [ Anterior Bilateral Throughout] Pulse Rate [ From Monitor] Respiratory 22 33 H 28 H Rate Respiratory Rate [Anterior Bilateral Throughout] Blood Pressure 125/88 125/88 127/87 O2 Sat by Pulse 95 96 96 Oximetry 10/12/18 10/12/18 10/12/18 02:57 03:00 03:06 Temperature Pulse Rate 117 H Pulse Rate [ 125 H 122 H Anterior Bilateral Throughout] Pulse Rate [ From Monitor] Respiratory 32 H Rate Respiratory 30 H 32 H Rate [Anterior Bilateral Throughout] Blood Pressure 134/100 O2 Sat by Pulse 93 Oximetry 10/12/18 10/12/18 10/12/18 03:10 03:18 03:20 Temperature 97.6 F 100.9 F H Pulse Rate 118 H 115 H Pulse Rate [ Anterior Bilateral Throughout] Pulse Rate [ From Monitor] Respiratory 29 H 32 H Rate Respiratory Rate [Anterior Bilateral Throughout] Blood Pressure 134/100 146/89 O2 Sat by Pulse 96 96 Oximetry 10/12/18 10/12/18 10/12/18 03:30 03:40 03:50 Temperature Pulse Rate 118 H 117 H 119 H Pulse Rate [ Anterior Bilateral Throughout] Pulse Rate [ From Monitor] Respiratory 30 H 32 H 30 H Rate Respiratory Rate [Anterior Bilateral Throughout] Blood Pressure 145/90 145/90 161/88 O2 Sat by Pulse 95 97 96 Oximetry 10/12/18 10/12/18 10/12/18 04:00 04:10 04:20 Temperature Pulse Rate 119 H 117 H 117 H Pulse Rate [ Anterior Bilateral Throughout] Pulse Rate [ 113 H From Monitor] Respiratory 32 H 29 H 30 H Rate Respiratory Rate [Anterior Bilateral Throughout] Blood Pressure 153/85 153/85 143/79 O2 Sat by Pulse 95 97 96 Oximetry 10/12/18 10/12/18 10/12/18 04:30 04:40 04:50 Temperature Pulse Rate 119 H 118 H 121 H Pulse Rate [ Anterior Bilateral Throughout] Pulse Rate [ From Monitor] Respiratory 32 H 33 H 39 H Rate Respiratory Rate [Anterior Bilateral Throughout] Blood Pressure 150/85 150/85 150/85 O2 Sat by Pulse 95 96 97 Oximetry 10/12/18 10/12/18 10/12/18 05:00 05:10 05:20 Temperature 99.8 F H Pulse Rate 121 H 122 H 126 H Pulse Rate [ Anterior Bilateral Throughout] Pulse Rate [ From Monitor] Respiratory 37 H 37 H 28 H Rate Respiratory Rate [Anterior Bilateral Throughout] Blood Pressure 165/94 165/94 151/92 O2 Sat by Pulse 96 97 96 Oximetry 10/12/18 10/12/18 10/12/18 05:30 05:40 05:50 Temperature Pulse Rate 130 H 125 H 127 H Pulse Rate [ Anterior Bilateral Throughout] Pulse Rate [ From Monitor] Respiratory 25 H 28 H 25 H Rate Respiratory Rate [Anterior Bilateral Throughout] Blood Pressure 136/93 136/93 126/88 O2 Sat by Pulse 93 96 96 Oximetry 10/12/18 10/12/18 10/12/18 06:00 06:10 06:20 Temperature Pulse Rate 114 H 113 H 114 H Pulse Rate [ Anterior Bilateral Throughout] Pulse Rate [ 115 H From Monitor] Respiratory 20 25 H 25 H Rate Respiratory Rate [Anterior Bilateral Throughout] Blood Pressure 133/80 133/80 134/74 O2 Sat by Pulse 93 97 97 Oximetry 10/12/18 10/12/18 10/12/18 06:30 06:40 06:50 Temperature Pulse Rate 115 H 124 H 111 H Pulse Rate [ Anterior Bilateral Throughout] Pulse Rate [ From Monitor] Respiratory 24 23 25 H Rate Respiratory Rate [Anterior Bilateral Throughout] Blood Pressure 120/81 120/81 129/84 O2 Sat by Pulse 95 98 98 Oximetry 10/12/18 10/12/18 10/12/18 07:00 07:10 07:20 Temperature 100 F H Pulse Rate 114 H 118 H 116 H Pulse Rate [ Anterior Bilateral Throughout] Pulse Rate [ From Monitor] Respiratory 21 26 H 24 Rate Respiratory Rate [Anterior Bilateral Throughout] Blood Pressure 126/89 126/89 126/83 O2 Sat by Pulse 95 98 98 Oximetry 10/12/18 10/12/18 10/12/18 07:30 07:40 07:50 Temperature Pulse Rate 122 H 121 H 132 H Pulse Rate [ Anterior Bilateral Throughout] Pulse Rate [ From Monitor] Respiratory 22 26 H 22 Rate Respiratory Rate [Anterior Bilateral Throughout] Blood Pressure 135/74 135/74 124/69 O2 Sat by Pulse 96 96 96 Oximetry 10/12/18 10/12/18 10/12/18 08:00 08:10 08:20 Temperature Pulse Rate 114 H 135 H 157 H Pulse Rate [ 113 H Anterior Bilateral Throughout] Pulse Rate [ 115 H From Monitor] Respiratory 24 25 H 30 H Rate Respiratory 21 Rate [Anterior Bilateral Throughout] Blood Pressure 123/76 126/83 122/78 O2 Sat by Pulse 96 99 97 Oximetry 10/12/18 10/12/18 10/12/18 08:30 08:33 08:40 Temperature Pulse Rate 118 H 115 H Pulse Rate [ 118 H Anterior Bilateral Throughout] Pulse Rate [ From Monitor] Respiratory 30 H 30 H Rate Respiratory 30 H Rate [Anterior Bilateral Throughout] Blood Pressure 122/78 122/51 O2 Sat by Pulse 94 97 Oximetry 10/12/18 10/12/18 10/12/18 08:50 09:00 09:10 Temperature Pulse Rate 121 H 118 H 130 H Pulse Rate [ Anterior Bilateral Throughout] Pulse Rate [ From Monitor] Respiratory 30 H 30 H 30 H Rate Respiratory Rate [Anterior Bilateral Throughout] Blood Pressure 110/77 113/74 122/78 O2 Sat by Pulse 97 95 97 Oximetry 10/12/18 10/12/18 10/12/18 09:20 09:30 09:40 Temperature Pulse Rate 119 H 116 H 119 H Pulse Rate [ Anterior Bilateral Throughout] Pulse Rate [ From Monitor] Respiratory 30 H 30 H 30 H Rate Respiratory Rate [Anterior Bilateral Throughout] Blood Pressure 124/76 112/85 113/74 O2 Sat by Pulse 97 95 97 Oximetry 10/12/18 10/12/18 10/12/18 09:50 10:00 10:10 Temperature Pulse Rate 118 H 121 H 120 H Pulse Rate [ Anterior Bilateral Throughout] Pulse Rate [ From Monitor] Respiratory 30 H 26 H 22 Rate Respiratory Rate [Anterior Bilateral Throughout] Blood Pressure 119/79 119/79 146/96 O2 Sat by Pulse 96 96 98 Oximetry 10/12/18 10/12/18 10/12/18 10:20 10:30 10:40 Temperature Pulse Rate 120 H 148 H 121 H Pulse Rate [ Anterior Bilateral Throughout] Pulse Rate [ From Monitor] Respiratory 21 23 19 Rate Respiratory Rate [Anterior Bilateral Throughout] Blood Pressure 139/86 122/84 122/84 O2 Sat by Pulse 97 95 97 Oximetry 10/12/18 10/12/18 10/12/18 10:50 11:00 11:10 Temperature Pulse Rate 124 H 115 H 122 H Pulse Rate [ Anterior Bilateral Throughout] Pulse Rate [ From Monitor] Respiratory 22 23 31 H Rate Respiratory Rate [Anterior Bilateral Throughout] Blood Pressure 121/69 123/84 123/84 O2 Sat by Pulse 97 93 97 Oximetry 10/12/18 10/12/18 10/12/18 11:20 11:30 11:40 Temperature Pulse Rate 114 H 123 H 120 H Pulse Rate [ Anterior Bilateral Throughout] Pulse Rate [ From Monitor] Respiratory 23 30 H 30 H Rate Respiratory Rate [Anterior Bilateral Throughout] Blood Pressure 133/83 112/79 112/79 O2 Sat by Pulse 97 94 97 Oximetry 10/12/18 10/12/18 10/12/18 11:50 12:00 12:10 Temperature 98.6 F Pulse Rate 132 H 116 H 131 H Pulse Rate [ Anterior Bilateral Throughout] Pulse Rate [ 115 H From Monitor] Respiratory 30 H 30 H 30 H Rate Respiratory Rate [Anterior Bilateral Throughout] Blood Pressure 116/78 108/73 108/73 O2 Sat by Pulse 98 95 98 Oximetry 10/12/18 10/12/18 12:20 12:30 Temperature Pulse Rate 127 H 126 H Pulse Rate [ Anterior Bilateral Throughout] Pulse Rate [ From Monitor] Respiratory 30 H 30 H Rate Respiratory Rate [Anterior Bilateral Throughout] Blood Pressure 105/81 106/80 O2 Sat by Pulse 99 95 Oximetry - Labs CBC & Chem 7: 10/13/18 05:40 10/13/18 05:40 Labs: Abnormal lab results 10/11/18 10/11/18 10/11/18 Range/Units 14:41 15:27 16:13 WBC (4.5-11.0) K/mm3 Seg Neuts % (Manual) (40.0-70.0) % Monocytes % (Manual) (0.0-7.3) % Seg Neutrophils # Man (1.8-7.7) K/mm3 Monocytes # (Manual) (0.0-0.8) K/mm3 POC ABG pH (7.35-7.45) POC ABG pCO2 (35-45) Sodium (137-145) mmol/L Chloride (98-107) mmol/L BUN (9-20) mg/dL Creatinine (0.8-1.5) mg/dL Glucose (75-100) mg/dL POC Glucose 127 H 141 H 134 H (70-105) Calcium (8.4-10.2) mg/dL AST (5-40) units/L ALT (7-56) units/L Total Creatine Kinase (55-170) units/L CK-MB (CK-2) (0.0-4.0) ng/mL Troponin T (0.00-0.029) ng/mL Total Protein (6.3-8.2) g/dL Albumin (3.9-5) g/dL 10/11/18 10/11/18 10/11/18 Range/Units 17:18 18:23 19:38 WBC (4.5-11.0) K/mm3 Seg Neuts % (Manual) (40.0-70.0) % Monocytes % (Manual) (0.0-7.3) % Seg Neutrophils # Man (1.8-7.7) K/mm3 Monocytes # (Manual) (0.0-0.8) K/mm3 POC ABG pH (7.35-7.45) POC ABG pCO2 (35-45) Sodium 148 H (137-145) mmol/L Chloride 112.7 H (98-107) mmol/L BUN 23 H (9-20) mg/dL Creatinine (0.8-1.5) mg/dL Glucose 143 H (75-100) mg/dL POC Glucose 132 H 129 H (70-105) Calcium 7.9 L (8.4-10.2) mg/dL AST (5-40) units/L ALT (7-56) units/L Total Creatine Kinase (55-170) units/L CK-MB (CK-2) (0.0-4.0) ng/mL Troponin T (0.00-0.029) ng/mL Total Protein (6.3-8.2) g/dL Albumin (3.9-5) g/dL 10/11/18 10/11/18 10/11/18 Range/Units 20:19 20:36 21:01 WBC (4.5-11.0) K/mm3 Seg Neuts % (Manual) (40.0-70.0) % Monocytes % (Manual) (0.0-7.3) % Seg Neutrophils # Man (1.8-7.7) K/mm3 Monocytes # (Manual) (0.0-0.8) K/mm3 POC ABG pH 7.281 L (7.35-7.45) POC ABG pCO2 (35-45) Sodium (137-145) mmol/L Chloride (98-107) mmol/L BUN (9-20) mg/dL Creatinine (0.8-1.5) mg/dL Glucose (75-100) mg/dL POC Glucose 129 H 151 H (70-105) Calcium (8.4-10.2) mg/dL AST (5-40) units/L ALT (7-56) units/L Total Creatine Kinase (55-170) units/L CK-MB (CK-2) (0.0-4.0) ng/mL Troponin T (0.00-0.029) ng/mL Total Protein (6.3-8.2) g/dL Albumin (3.9-5) g/dL 10/11/18 10/11/18 10/12/18 Range/Units 22:04 23:15 01:18 WBC (4.5-11.0) K/mm3 Seg Neuts % (Manual) (40.0-70.0) % Monocytes % (Manual) (0.0-7.3) % Seg Neutrophils # Man (1.8-7.7) K/mm3 Monocytes # (Manual) (0.0-0.8) K/mm3 POC ABG pH (7.35-7.45) POC ABG pCO2 (35-45) Sodium (137-145) mmol/L Chloride (98-107) mmol/L BUN (9-20) mg/dL Creatinine (0.8-1.5) mg/dL Glucose (75-100) mg/dL POC Glucose 147 H 143 H 158 H (70-105) Calcium (8.4-10.2) mg/dL AST (5-40) units/L ALT (7-56) units/L Total Creatine Kinase (55-170) units/L CK-MB (CK-2) (0.0-4.0) ng/mL Troponin T (0.00-0.029) ng/mL Total Protein (6.3-8.2) g/dL Albumin (3.9-5) g/dL 10/12/18 10/12/18 10/12/18 Range/Units 02:13 03:18 04:04 WBC (4.5-11.0) K/mm3 Seg Neuts % (Manual) (40.0-70.0) % Monocytes % (Manual) (0.0-7.3) % Seg Neutrophils # Man (1.8-7.7) K/mm3 Monocytes # (Manual) (0.0-0.8) K/mm3 POC ABG pH (7.35-7.45) POC ABG pCO2 (35-45) Sodium 147 H (137-145) mmol/L Chloride 111.1 H (98-107) mmol/L BUN 30 H (9-20) mg/dL Creatinine 2.0 H (0.8-1.5) mg/dL Glucose 154 H (75-100) mg/dL POC Glucose 148 H 142 H (70-105) Calcium 8.1 L (8.4-10.2) mg/dL AST 269 H (5-40) units/L ALT 204 H (7-56) units/L Total Creatine Kinase 3647 H (55-170) units/L CK-MB (CK-2) 48.3 H (0.0-4.0) ng/mL Troponin T 2.230 H* D (0.00-0.029) ng/mL Total Protein 5.8 L (6.3-8.2) g/dL Albumin 2.6 L (3.9-5) g/dL 10/12/18 10/12/18 10/12/18 Range/Units 04:04 04:08 04:19 WBC 24.4 H (4.5-11.0) K/mm3 Seg Neuts % (Manual) 32.0 L (40.0-70.0) % Monocytes % (Manual) 8.0 H (0.0-7.3) % Seg Neutrophils # Man 7.8 H (1.8-7.7) K/mm3 Monocytes # (Manual) 2.0 H (0.0-0.8) K/mm3 POC ABG pH 7.317 L (7.35-7.45) POC ABG pCO2 49.3 H (35-45) Sodium (137-145) mmol/L Chloride (98-107) mmol/L BUN (9-20) mg/dL Creatinine (0.8-1.5) mg/dL Glucose (75-100) mg/dL POC Glucose 143 H (70-105) Calcium (8.4-10.2) mg/dL AST (5-40) units/L ALT (7-56) units/L Total Creatine Kinase (55-170) units/L CK-MB (CK-2) (0.0-4.0) ng/mL Troponin T (0.00-0.029) ng/mL Total Protein (6.3-8.2) g/dL Albumin (3.9-5) g/dL 10/12/18 10/12/18 10/12/18 Range/Units 05:29 06:52 08:09 WBC (4.5-11.0) K/mm3 Seg Neuts % (Manual) (40.0-70.0) % Monocytes % (Manual) (0.0-7.3) % Seg Neutrophils # Man (1.8-7.7) K/mm3 Monocytes # (Manual) (0.0-0.8) K/mm3 POC ABG pH 7.322 L (7.35-7.45) POC ABG pCO2 46.5 H (35-45) Sodium (137-145) mmol/L Chloride (98-107) mmol/L BUN (9-20) mg/dL Creatinine (0.8-1.5) mg/dL Glucose (75-100) mg/dL POC Glucose 196 H 226 H (70-105) Calcium (8.4-10.2) mg/dL AST (5-40) units/L ALT (7-56) units/L Total Creatine Kinase (55-170) units/L CK-MB (CK-2) (0.0-4.0) ng/mL Troponin T (0.00-0.029) ng/mL Total Protein (6.3-8.2) g/dL Albumin (3.9-5) g/dL 10/12/18 10/12/18 Range/Units 08:38 10:03 WBC (4.5-11.0) K/mm3 Seg Neuts % (Manual) (40.0-70.0) % Monocytes % (Manual) (0.0-7.3) % Seg Neutrophils # Man (1.8-7.7) K/mm3 Monocytes # (Manual) (0.0-0.8) K/mm3 POC ABG pH (7.35-7.45) POC ABG pCO2 (35-45) Sodium (137-145) mmol/L Chloride (98-107) mmol/L BUN (9-20) mg/dL Creatinine (0.8-1.5) mg/dL Glucose (75-100) mg/dL POC Glucose 138 H 148 H (70-105) Calcium (8.4-10.2) mg/dL AST (5-40) units/L ALT (7-56) units/L Total Creatine Kinase (55-170) units/L CK-MB (CK-2) (0.0-4.0) ng/mL Troponin T (0.00-0.029) ng/mL Total Protein (6.3-8.2) g/dL Albumin (3.9-5) g/dL
[2018-10-12] MEDS: HumuLIN R SUB-Q SCH ×3 (15:49→21:41)
--- NOTE | 2018-10-12 19:01 | XRay Report ---
PROCEDURE: XR CHEST 1V AP TECHNIQUE: Chest single AP HISTORY: PICC line insertion COMPARISONS: Comparison is made 08/29/2018 FINDINGS: ET tube present tip approximately midway between the thoracic inlet to the sherri. NG tube again iden tified distal tip overlying the body the stomach. No evidence for pneumothorax. There is been placement of a right PICC line catheter tip overlying the SVC. IMPRESSION: Right PICC line in satisfactory position. ET and NG tube remain in satisfactory position This document is electronically signed by Nazario Antonio MD., Oct 12 2018 06:59:33 PM ET
[2018-10-12] MEDS: SODIUM BICARBONATE 100 MEQ in D5W 1,000 ML IV SCH (19:11)
--- NOTE | 2018-10-12 23:30 | Consultation ---
PULMONARY CRITICAL CONSULTATION CONSULTING PHYSICIAN: Dr. Galvin. REASON FOR CONSULTATION: Acute respiratory failure. CHIEF COMPLAINT AND HISTORY OF PRESENT ILLNESS: As follows: The patient is a 58-year-old male with a past medical history significant amongst other things for a diagnosis of ____ DICTATION ENDS HERE JOB# [id number] AJM/NTS
[2018-10-13] MEDS: ZOSYN/NS 2.25 GM/50ML 2.25 GM/50 ML BAG IV SCH ×3 (00:34→12:34)
--- NOTE | 2018-10-13 01:14 | Event Note ---
Date: 10/13/18 Nurse reported that the pt is able to move his RT side, but unable to move the LT side. will repeat Head CT scan for further eval. May consider MRI brain if head CT scan is negative.
[2018-10-13] MEDS: DUONEB *Not for PRN Use IH SCH ×4 (02:17→19:22)
--- NOTE | 2018-10-13 02:25 | Cat Scan Report ---
PROCEDURE: CT HEAD/BRAIN WO CON TECHNIQUE: Computerized tomography of the head was performed without contrast material. CT DOSE LENGTH PRODUCT: 920.5 mGycm HISTORY: LT sided weakness COMPARISONS: 10/11/2018. FINDINGS: Skull and scalp: There is a large suboccipital craniectomy defect. There is no acute bony abnormalit y. . Paranasal sinuses: Normal . Ventricles and subarachnoid spaces: Normal . Cerebrum: Hypodense areas seen in the right frontoparietal lobes are slightly worsened compared to pr ior exam, and cannot rule out involving acute/subacute infarcts versus possible underlying lesions. M RI should be considered for further evaluation. No intracranial hemorrhage visualized. Cerebellum and brainstem: There is focal encephalomalacia of the right cerebellar hemisphere suggest ing old infarct or other injury. Vasculature: Normal . IMPRESSION: Hypodense areas seen in the right frontoparietal lobes are slightly worsened compared to prior exam, and cannot rule out involving acute/subacute infarcts versus possible underlying lesions . MRI should be considered for further evaluation. No intracranial hemorrhage visualized. This document is electronically signed by Hollie Landon MD., Oct 13 2018 02:23:19 AM ET
[2018-10-13] MEDS: HumuLIN R SUB-Q SCH ×6 (02:59→22:26)
[2018-10-13] MEDS ORDERED: SODIUM CHLORIDE FLUSH SYRINGE 10 ML IV PRN (03:37)
--- NOTE | 2018-10-13 03:48 | XRay Report ---
PROCEDURE: XR CHEST 1V AP TECHNIQUE: Single AP chest HISTORY: follow up respiratory failure COMPARISONS: October 12 at 5:56 PM FINDINGS: Right-sided PICC line in the SVC, unchanged. NG tube in the stomach, unchanged. ET tube remains in place. No new areas of airspace consolidation or pleural effusions. Pulmonary vasculature are within normal limits. No significant interval change. IMPRESSION: No significant interval change since the prior radiograph.. This document is electronically signed by Kennedy Saucedo MD., Oct 13 2018 03:46:23 AM ET
--- NOTE | 2018-10-13 03:58 | Event Note ---
<VALARIE MEZA - Last Filed: 10/13/18 06:28> Date: 10/13/[address] result was called by pt's allen in ICU, pt was seen in ICU, he is intubated, obtunded and sedated, he doesn't follow commends. Per nurse, he was assesses at the beginning of the shift after fentanel drip was off and weakness was noted on the right extremities. Pt was sent for a CT scan of the brain which showed hypodense area seen in the frontoparietal lobes slightly worsened compare to prior exam, a prior CT done on 10/11/18 was normal. Stroke protocol was initiated, telespecialist was called, no recommendation for TPA due to unknown specific time of event. <GILBERTO BONNER - Last Filed: 10/18/18 21:17> I personally discussed the patient with the OPERATOR HELPER-C and I agree with the above documentations
--- NOTE | 2018-10-13 05:21 | Emergency Department Report ---
Blank Doc - Documentation Documentation: [facility] Impression: Acute/ Subacute Stroke Embolic appearing on HCT and seen on admission with progression on follow up scan tonight Given h/o drug overdose, endocarditis should be considered in this case Not a tpa candidate due to: completed stroke, outside treatment window Does not meet LVO screening criteria as strokes are completed and he is outside treatment window Comments: STAT consult Recommendations: Would hold asa for now until endocarditis can be ruled out. Stroke protocol admission/ orderset suggested (MRI brain w/o, MRA head/ neck, TTE/ QUIQUE to r/o cardiac source of emboli and valve vegetation, lipid panel) tele monitoring IV Fluid hydration with NS Euglycemia avoid hyperthermia, PRN acetaminophen dvt ppx Consider neurology consult in house Discussed with ED MD Please call with questions CC stroke alert History of Present Illness Patient is a 58 yo M inpatient admitted after being found down with suspected overdose (dilaudid/ fentanyl, unclear if IVDU) Pt reportedly LKW at 1030pm on 10/10/18 but no one was available to provided history to the ED. On admission, he was diagnosed with sepsis, DKA, demand myocardial ischemia, and was intubated for airway protection HCT done at the time shows evidence of multifocal right frontal infarcts Today, his sedation is being lifted and it was noted he was not moving his left side Repeat HCT shows evolving right frontal infarcts Exam: Limited 2/2 intubation, sedation. spontaneously opens eyes, does not follow commands grimaces to nox stim symmetrically EOMI right ue and le are at antigravity strength left arm/ leg are flaccid Medical Decision Making: - Extensive number of diagnosis or management options are considered above. - Extensive amount of complex data reviewed. - High risk of complication and/or morbidity or mortality are associated with differential diagnostic considerations above. - There may be Uncertain outcome and increased probability of prolonged functional impairment or high probability of severe prolonged functional impairment associated with some of these differential diagnosis. Medical Data Reviewed: 1.Data reviewed include clinical labs, radiology, Medical Tests; 2.Tests results discussed w/performing or interpreting physician; 3.Obtaining/reviewing old medical records; 4.Obtaining case history from another source; 5.Independent review of image, tracing or specimen. Patient was informed the Neurology Consult would happen via telehealth (remote video) and consented to receiving care in this manner.
[2018-10-13] MEDS: HEPARIN SUB-Q SCH ×3 (05:23→22:26)
[2018-10-13] MEDS: VANCOMYCIN/NS 1 GM/250 ML 1 GM/250 ML BAG IV SCH (05:23)
[2018-10-13 05:59] LABS: Basophils # (Auto) 0.1 K/mm3 (0.0-0.1); Basophils % (Auto) 0.8 % (0.0-1.8); Eosinophils % (Auto) 0.1 % (0.0-4.3); Hematocrit 39.6 % (35.5-45.6); Lymphocytes # (Auto) 2.3 K/mm3 (1.2-5.4); Lymphocytes % (Auto) 13.7 % (13.4-35.0); Mean Corpuscular HGB Conc 33 % (32-34); Mean Corpuscular Volume 93 fl (84-94); Monocytes # (Auto) 1.6 K/mm3 (0.0-0.8); Monocytes % (Auto) 9.2 % (0.0-7.3); Platelet Count 176 K/mm3 (140-440); Red Blood Count 4.28 M/mm3 (3.65-5.03); Red Cell Distribution Width 14.8 % (13.2-15.2)
[2018-10-13] MEDS: fentaNYL DRIP Premix 2,000 MCG/100 ML BAG IV SCH ×2 (06:15→18:15)
[2018-10-13 06:22] LABS: Calcium 7.9 mg/dL (8.4-10.2)
--- NOTE | 2018-10-13 07:23 | Progress Note ---
Assessment and Plan Acute hypoxemic respiratory failure, on mechanical ventilator support. Acute embolic CVA Acute critical limb ischemia, left lower extremity Chronic obstructive pulmonary disease Witnessed seizure en route. Acute kidney injury. Leukocytosis. Hypercapnia. Hyperkalemia. Metabolic acidosis. Lactic acidosis. Non-ST elevation myocardial infarction. Elevated serum transaminases Overdose - Increase RR to 30 an decrease set tidal volume to 6ml/kg for lung protective strtegies -Complete current bicarb infusion, then stop -Discontinue femoral CC, place PICC line -Secondary stroke prophylaxis -Preliminary report shows acute thrombus in the left lower extemity. Called vascular consult and discussed with Dr. Payan, unfortunately with acute infarct, not a candidate for anticoagulation in the acute setting - Continue cardioprotective measures - Replete electrolytes as indicated - Currently on Zosyn/Azithromycin follow cultures and adjust antibiotics for ID/CALEB (Deescalate as indicated) - Tracheal aspirate, blood cultures, urine cultures are negative to date - Continue bronchodilators with pulmonary hygiene per RT - Continue full MVS, start SAT and SBTs in the morning - Monitor renal indices closely - Avoid nephrotoxic agents, adjust all medications for CrCL - Strict intake and output monitoring -Discontnue edmondson catheter and place condom catheter - Tube feedings, on Osmolite 1.2 at 45ml/hour - Aspiration precautions -Stress ulcer prophylaxis -VTE prophylaxis - Accuchecks with glycemic control. Target glucose of 140-180 mg/dL - Maintenance of sleep -wake cycle - Mobility as tolerated by hemodynamics - Influenza and pneumonia vaccination per protocol ..care plan discussed at length with RN/RT at the bedside ..discussed in family at the bedside -Discussed with the hospitalist service -Discussed with Neurology PROGNOSIS: GUARDED CONDITION: CRITICAL CODE STATUS: FULL CODE The high probability of a clinically significant, sudden or life-threatening deterioration of the [respiratory, neurology, renal, vascular] system(s) required my full and direct attention, intervention and personal management. The aggregate critical care time was [65] minutes without overlap. Time includes spent on; [x] Data Review and interpretation [x] Patient assessment and monitoring of vital signs [x] Documentation [x] Medication orders and management Subjective Date of service: 10/13/18 Principal diagnosis: Ac hypercapnic hypoxemic Resp failure; Drug OD; AE-COPD; NINOSKA; Seizures Interval history: Patient is seen today for: Acute hypoxemic respiratory failure, on mechanical ventilator support; Drug overdose; Acute chronic obstructive pulmonary disease exacerbation; Witnessed seizure en route; Acute kidney injury; Leukocytosis; Hypercapnia. Seen and examined at bedside; 24-hour events reviewed; nursing and respiratory care staff consulted; no adverse overnight events reported to me; remains with AMS; resting peacefully in bed; No N/V/F/C; opens eyes on verbal commands. Overnight was noted to develop weakness on the left side, stat CT head was done which showed an acute CVA. On my review today noted a cold left foot, per discussions with RN, this is new. Asked the hemodialysis technician to get a stat arterial dopplers. Off vasopressors, on minimal vent support Objective Vital Signs - 12hr 10/12/18 10/12/18 10/12/18 19:30 19:45 20:00 Temperature 98.4 F Pulse Rate 122 H 130 H 112 H Pulse Rate [ Anterior Bilateral Throughout] Respiratory 30 H 29 H 30 H Rate Respiratory Rate [Anterior Bilateral Throughout] Blood Pressure 110/71 117/73 117/73 O2 Sat by Pulse 94 94 95 Oximetry 10/12/18 10/12/18 10/12/18 20:15 20:30 20:46 Temperature Pulse Rate 114 H 112 H 123 H Pulse Rate [ Anterior Bilateral Throughout] Respiratory 20 30 H 26 H Rate Respiratory Rate [Anterior Bilateral Throughout] Blood Pressure 112/82 111/78 141/81 O2 Sat by Pulse 95 95 94 Oximetry 10/12/18 10/12/18 10/12/18 21:00 21:15 21:26 Temperature Pulse Rate 108 H 123 H 130 H Pulse Rate [ Anterior Bilateral Throughout] Respiratory 20 26 H 15 Rate Respiratory Rate [Anterior Bilateral Throughout] Blood Pressure 125/81 126/78 126/78 O2 Sat by Pulse 95 94 96 Oximetry 10/12/18 10/12/18 10/12/18 21:30 21:45 22:00 Temperature Pulse Rate 124 H 108 H 137 H Pulse Rate [ Anterior Bilateral Throughout] Respiratory 25 H 25 H 25 H Rate Respiratory Rate [Anterior Bilateral Throughout] Blood Pressure 123/83 128/81 129/62 O2 Sat by Pulse 92 90 91 Oximetry 10/12/18 10/12/18 10/12/18 22:03 22:16 22:30 Temperature Pulse Rate 130 H 107 H 120 H Pulse Rate [ Anterior Bilateral Throughout] Respiratory 25 H 25 H Rate Respiratory Rate [Anterior Bilateral Throughout] Blood Pressure 130/67 127/70 O2 Sat by Pulse 92 94 Oximetry 10/12/18 10/12/18 10/12/18 22:45 23:00 23:12 Temperature 99.5 F Pulse Rate 106 H 111 H Pulse Rate [ Anterior Bilateral Throughout] Respiratory 25 H 25 H Rate Respiratory Rate [Anterior Bilateral Throughout] Blood Pressure 125/79 124/77 O2 Sat by Pulse 95 94 Oximetry 10/12/18 10/12/18 10/12/18 23:15 23:30 23:45 Temperature Pulse Rate 106 H 105 H 118 H Pulse Rate [ Anterior Bilateral Throughout] Respiratory 25 H 25 H 25 H Rate Respiratory Rate [Anterior Bilateral Throughout] Blood Pressure 134/81 132/81 130/83 O2 Sat by Pulse 95 96 95 Oximetry 10/13/18 10/13/18 10/13/18 00:00 00:15 00:30 Temperature Pulse Rate 113 H 110 H 109 H Pulse Rate [ Anterior Bilateral Throughout] Respiratory 25 H 25 H 18 Rate Respiratory Rate [Anterior Bilateral Throughout] Blood Pressure 121/78 129/81 149/95 O2 Sat by Pulse 94 94 95 Oximetry 10/13/18 10/13/18 10/13/18 00:45 01:00 01:15 Temperature Pulse Rate 120 H 110 H 104 H Pulse Rate [ Anterior Bilateral Throughout] Respiratory 25 H 20 25 H Rate Respiratory Rate [Anterior Bilateral Throughout] Blood Pressure 127/79 129/79 129/80 O2 Sat by Pulse 93 97 95 Oximetry 10/13/18 10/13/18 10/13/18 01:30 01:46 02:14 Temperature Pulse Rate 104 H 105 H 114 H Pulse Rate [ Anterior Bilateral Throughout] Respiratory 25 H 25 H Rate Respiratory Rate [Anterior Bilateral Throughout] Blood Pressure 137/77 134/84 134/84 O2 Sat by Pulse 94 96 98 Oximetry 10/13/18 10/13/18 10/13/18 02:15 02:19 02:30 Temperature Pulse Rate 107 H 121 H Pulse Rate [ 108 H 111 H Anterior Bilateral Throughout] Respiratory 25 H 25 H Rate Respiratory 25 H 25 H Rate [Anterior Bilateral Throughout] Blood Pressure 132/79 132/77 O2 Sat by Pulse 95 92 Oximetry 10/13/18 10/13/18 10/13/18 02:45 03:00 03:15 Temperature Pulse Rate 106 H 112 H 108 H Pulse Rate [ Anterior Bilateral Throughout] Respiratory 18 20 25 H Rate Respiratory Rate [Anterior Bilateral Throughout] Blood Pressure 135/84 112/91 121/85 O2 Sat by Pulse 90 95 90 Oximetry 10/13/18 10/13/18 10/13/18 03:30 03:34 03:45 Temperature 97.8 F Pulse Rate 108 H 106 H Pulse Rate [ Anterior Bilateral Throughout] Respiratory 15 24 Rate Respiratory Rate [Anterior Bilateral Throughout] Blood Pressure 131/89 134/82 O2 Sat by Pulse 91 92 Oximetry 10/13/18 10/13/18 10/13/18 04:00 04:15 04:30 Temperature Pulse Rate 114 H 114 H 104 H Pulse Rate [ Anterior Bilateral Throughout] Respiratory 24 24 25 H Rate Respiratory Rate [Anterior Bilateral Throughout] Blood Pressure 120/79 126/78 125/78 O2 Sat by Pulse 92 93 93 Oximetry 10/13/18 10/13/18 10/13/18 04:45 05:00 05:16 Temperature Pulse Rate 108 H 108 H 109 H Pulse Rate [ Anterior Bilateral Throughout] Respiratory 25 H 25 H 14 Rate Respiratory Rate [Anterior Bilateral Throughout] Blood Pressure 127/79 124/78 151/93 O2 Sat by Pulse 94 93 96 Oximetry 10/13/18 10/13/18 10/13/18 05:30 05:45 06:00 Temperature Pulse Rate 110 H 109 H 103 H Pulse Rate [ Anterior Bilateral Throughout] Respiratory 25 H 18 25 H Rate Respiratory Rate [Anterior Bilateral Throughout] Blood Pressure 124/76 144/96 115/72 O2 Sat by Pulse 95 91 Oximetry 10/13/18 10/13/18 06:15 06:40 Temperature Pulse Rate 103 H 115 H Pulse Rate [ Anterior Bilateral Throughout] Respiratory 25 H 25 H Rate Respiratory Rate [Anterior Bilateral Throughout] Blood Pressure 123/74 O2 Sat by Pulse 93 94 Oximetry Constitutional: no acute distress, other (middle aged but chronically ill looking CM; Atraumatic) Eyes: non-icteric ENT: oropharynx moist, other (ETT 23 cm SHELBI) Neck: supple, no lymphadenopathy, no JVD Effort: normal Ascultation: Bilateral: diminished breath sounds, rhonchi Percussion: Bilateral: not dull Cardiovascular: irregular rhythm, other (No R/M) Gastrointestinal: normoactive bowel sounds, soft, non-tender, non-distended Integumentary: other (poor turgor) Extremities: no edema, pink and warm, cool (Left foot, no pulses), cyanosis (right foot) Neurologic: pupils equal and round, other (Flaccid left upper and lower extemity, squeezes my hand on the right) Psychiatric: other (unable to assess re: AMS) CBC and BMP: 10/17/18 05:40 10/15/18 12:00 ABG, PT/INR, D-dimer: ABG POC ABG pH 7.336 (7.35-7.45) L 10/12/18 20:56 POC ABG pCO2 46.0 (35-45) H 10/12/18 20:56 POC ABG pO2 104 (80-105) 10/12/18 20:56 POC ABG HCO3 24.6 (22-26 mml/L) 10/12/18 20:56 POC ABG Total CO2 26 (23-27mmol/L) 10/12/18 20:56 POC ABG O2 Sat 98 10/12/18 20:56 PT/INR, D-dimer PT 14.7 Sec. (12.2-14.9) 10/11/18 08:29 INR 1.08 (0.87-1.13) 10/11/18 08:29 Abnormal lab findings: Abnormal Labs 10/11/18 10/11/18 10/11/18 00:16 00:16 00:16 WBC 20.1 H Hgb Hct MCV 98 H RDW 15.4 H Ray % (Auto) Ray # Seg Neutrophils % Seg Neuts % (Manual) Lymphocytes % (Manual) 5.0 L Monocytes % (Manual) 25.0 H Seg Neutrophils # Seg Neutrophils # Man 9.2 H Lymphocytes # (Manual) 1.0 L Monocytes # (Manual) 5.0 H APTT POC ABG pH POC ABG pCO2 POC ABG pO2 Sodium Potassium 5.8 H Chloride Carbon Dioxide 17 L BUN Creatinine 2.2 H Glucose 348 H POC Glucose Lactic Acid 13.70 H* Calcium 7.7 L Phosphorus Total Bilirubin 1.50 H AST 179 H ALT 110 H Total Creatine Kinase 324 H CK-MB (CK-2) Troponin T 0.257 H* Total Protein 5.9 L Albumin 2.9 L HDL Cholesterol 19 L Salicylates Acetaminophen 10/11/18 10/11/18 10/11/18 00:16 00:16 01:21 WBC Hgb Hct MCV RDW Ray % (Auto) Ray # Seg Neutrophils % Seg Neuts % (Manual) Lymphocytes % (Manual) Monocytes % (Manual) Seg Neutrophils # Seg Neutrophils # Man Lymphocytes # (Manual) Monocytes # (Manual) APTT POC ABG pH 7.110 L POC ABG pCO2 50.3 H POC ABG pO2 65 L Sodium Potassium Chloride Carbon Dioxide BUN Creatinine Glucose POC Glucose Lactic Acid Calcium Phosphorus Total Bilirubin AST ALT Total Creatine Kinase CK-MB (CK-2) Troponin T Total Protein Albumin HDL Cholesterol Salicylates < 0.3 L Acetaminophen < 5.0 L 10/11/18 10/11/18 10/11/18 01:22 03:27 04:14 WBC Hgb Hct MCV RDW Ray % (Auto) Ray # Seg Neutrophils % Seg Neuts % (Manual) Lymphocytes % (Manual) Monocytes % (Manual) Seg Neutrophils # Seg Neutrophils # Man Lymphocytes # (Manual) Monocytes # (Manual) APTT POC ABG pH POC ABG pCO2 POC ABG pO2 Sodium Potassium Chloride Carbon Dioxide BUN Creatinine Glucose POC Glucose Lactic Acid 8.50 H* 4.10 H* Calcium Phosphorus 4.90 H Total Bilirubin AST ALT Total Creatine Kinase CK-MB (CK-2) Troponin T Total Protein Albumin HDL Cholesterol Salicylates Acetaminophen 10/11/18 10/11/18 10/11/18 04:14 04:14 04:14 WBC Hgb Hct MCV RDW Ray % (Auto) Ray # Seg Neutrophils % Seg Neuts % (Manual) Lymphocytes % (Manual) Monocytes % (Manual) Seg Neutrophils # Seg Neutrophils # Man Lymphocytes # (Manual) Monocytes # (Manual) APTT POC ABG pH POC ABG pCO2 POC ABG pO2 Sodium Potassium 5.6 H Chloride Carbon Dioxide 19 L BUN Creatinine 1.6 H Glucose 329 H POC Glucose 328 H Lactic Acid Calcium 7.3 L Phosphorus Total Bilirubin AST ALT Total Creatine Kinase CK-MB (CK-2) Troponin T 1.130 H* D Total Protein Albumin HDL Cholesterol Salicylates Acetaminophen 10/11/18 10/11/18 10/11/18 05:10 05:32 05:58 WBC Hgb Hct MCV RDW Ray % (Auto) Ray # Seg Neutrophils % Seg Neuts % (Manual) Lymphocytes % (Manual) Monocytes % (Manual) Seg Neutrophils # Seg Neutrophils # Man Lymphocytes # (Manual) Monocytes # (Manual) APTT POC ABG pH 7.259 L POC ABG pCO2 45.6 H POC ABG pO2 Sodium Potassium Chloride 108.6 H Carbon Dioxide 20 L BUN Creatinine 1.8 H Glucose 269 H POC Glucose 273 H Lactic Acid Calcium 7.0 L Phosphorus Total Bilirubin AST ALT Total Creatine Kinase CK-MB (CK-2) Troponin T Total Protein Albumin HDL Cholesterol Salicylates Acetaminophen 10/11/18 10/11/18 10/11/18 05:58 06:39 07:00 WBC Hgb Hct MCV RDW Ray % (Auto) Ray # Seg Neutrophils % Seg Neuts % (Manual) Lymphocytes % (Manual) Monocytes % (Manual) Seg Neutrophils # Seg Neutrophils # Man Lymphocytes # (Manual) Monocytes # (Manual) APTT POC ABG pH POC ABG pCO2 POC ABG pO2 Sodium Potassium Chloride Carbon Dioxide BUN Creatinine Glucose POC Glucose 247 H Lactic Acid 3.20 H* 3.30 H* Calcium Phosphorus Total Bilirubin AST ALT Total Creatine Kinase CK-MB (CK-2) Troponin T Total Protein Albumin HDL Cholesterol Salicylates Acetaminophen 10/11/18 10/11/18 10/11/18 07:00 07:30 07:36 WBC Hgb Hct MCV RDW Ray % (Auto) Ray # Seg Neutrophils % Seg Neuts % (Manual) Lymphocytes % (Manual) Monocytes % (Manual) Seg Neutrophils # Seg Neutrophils # Man Lymphocytes # (Manual) Monocytes # (Manual) APTT POC ABG pH POC ABG pCO2 POC ABG pO2 Sodium 146 H Potassium Chloride 112.1 H Carbon Dioxide 21 L BUN Creatinine 1.6 H Glucose 218 H POC Glucose Lactic Acid 3.20 H* Calcium 7.0 L Phosphorus Total Bilirubin AST ALT Total Creatine Kinase CK-MB (CK-2) Troponin T 1.020 H* Total Protein Albumin HDL Cholesterol Salicylates Acetaminophen 10/11/18 10/11/18 10/11/18 07:43 08:29 08:29 WBC Hgb 16.2 H Hct 49.9 H D MCV RDW Ray % (Auto) Ray # Seg Neutrophils % Seg Neuts % (Manual) Lymphocytes % (Manual) Monocytes % (Manual) Seg Neutrophils # Seg Neutrophils # Man Lymphocytes # (Manual) Monocytes # (Manual) APTT POC ABG pH POC ABG pCO2 POC ABG pO2 Sodium Potassium Chloride Carbon Dioxide BUN Creatinine Glucose POC Glucose 174 H Lactic Acid 3.90 H* Calcium Phosphorus Total Bilirubin AST ALT Total Creatine Kinase CK-MB (CK-2) Troponin T Total Protein Albumin HDL Cholesterol Salicylates Acetaminophen 10/11/18 10/11/18 10/11/18 08:29 08:42 11:05 WBC Hgb Hct MCV RDW Ray % (Auto) Ray # Seg Neutrophils % Seg Neuts % (Manual) Lymphocytes % (Manual) Monocytes % (Manual) Seg Neutrophils # Seg Neutrophils # Man Lymphocytes # (Manual) Monocytes # (Manual) APTT 24.1 L POC ABG pH POC ABG pCO2 POC ABG pO2 Sodium 147 H Potassium Chloride 113.3 H Carbon Dioxide 21 L BUN Creatinine 1.7 H Glucose 119 H POC Glucose 164 H Lactic Acid Calcium 7.7 L Phosphorus Total Bilirubin AST ALT Total Creatine Kinase CK-MB (CK-2) Troponin T Total Protein Albumin HDL Cholesterol Salicylates Acetaminophen 10/11/18 10/11/18 10/11/18 11:05 11:06 12:30 WBC Hgb Hct MCV RDW Ray % (Auto) Ray # Seg Neutrophils % Seg Neuts % (Manual) Lymphocytes % (Manual) Monocytes % (Manual) Seg Neutrophils # Seg Neutrophils # Man Lymphocytes # (Manual) Monocytes # (Manual) APTT POC ABG pH POC ABG pCO2 POC ABG pO2 Sodium 148 H Potassium Chloride 113.4 H Carbon Dioxide 21 L BUN Creatinine 1.6 H Glucose 119 H POC Glucose 116 H Lactic Acid 3.20 H* Calcium 7.5 L Phosphorus Total Bilirubin AST ALT Total Creatine Kinase CK-MB (CK-2) Troponin T Total Protein Albumin HDL Cholesterol Salicylates Acetaminophen 10/11/18 10/11/18 10/11/18 12:30 13:16 13:25 WBC Hgb Hct MCV RDW Ray % (Auto) Ray # Seg Neutrophils % Seg Neuts % (Manual) Lymphocytes % (Manual) Monocytes % (Manual) Seg Neutrophils # Seg Neutrophils # Man Lymphocytes # (Manual) Monocytes # (Manual) APTT POC ABG pH 7.247 L POC ABG pCO2 48.4 H POC ABG pO2 Sodium Potassium Chloride Carbon Dioxide BUN Creatinine Glucose POC Glucose 112 H Lactic Acid 2.70 H* Calcium Phosphorus Total Bilirubin AST ALT Total Creatine Kinase CK-MB (CK-2) Troponin T Total Protein Albumin HDL Cholesterol Salicylates Acetaminophen 10/11/18 10/11/18 10/11/18 14:41 15:27 16:13 WBC Hgb Hct MCV RDW Ray % (Auto) Ray # Seg Neutrophils % Seg Neuts % (Manual) Lymphocytes % (Manual) Monocytes % (Manual) Seg Neutrophils # Seg Neutrophils # Man Lymphocytes # (Manual) Monocytes # (Manual) APTT POC ABG pH POC ABG pCO2 POC ABG pO2 Sodium Potassium Chloride Carbon Dioxide BUN Creatinine Glucose POC Glucose 127 H 141 H 134 H Lactic Acid Calcium Phosphorus Total Bilirubin AST ALT Total Creatine Kinase CK-MB (CK-2) Troponin T Total Protein Albumin HDL Cholesterol Salicylates Acetaminophen 10/11/18 10/11/18 10/11/18 17:18 18:23 19:38 WBC Hgb Hct MCV RDW Ray % (Auto) Ray # Seg Neutrophils % Seg Neuts % (Manual) Lymphocytes % (Manual) Monocytes % (Manual) Seg Neutrophils # Seg Neutrophils # Man Lymphocytes # (Manual) Monocytes # (Manual) APTT POC ABG pH POC ABG pCO2 POC ABG pO2 Sodium 148 H Potassium Chloride 112.7 H Carbon Dioxide BUN 23 H Creatinine Glucose 143 H POC Glucose 132 H 129 H Lactic Acid Calcium 7.9 L Phosphorus Total Bilirubin AST ALT Total Creatine Kinase CK-MB (CK-2) Troponin T Total Protein Albumin HDL Cholesterol Salicylates Acetaminophen 10/11/18 10/11/18 10/11/18 20:19 20:36 21:01 WBC Hgb Hct MCV RDW Ray % (Auto) Ray # Seg Neutrophils % Seg Neuts % (Manual) Lymphocytes % (Manual) Monocytes % (Manual) Seg Neutrophils # Seg Neutrophils # Man Lymphocytes # (Manual) Monocytes # (Manual) APTT POC ABG pH 7.281 L POC ABG pCO2 POC ABG pO2 Sodium Potassium Chloride Carbon Dioxide BUN Creatinine Glucose POC Glucose 129 H 151 H Lactic Acid Calcium Phosphorus Total Bilirubin AST ALT Total Creatine Kinase CK-MB (CK-2) Troponin T Total Protein Albumin HDL Cholesterol Salicylates Acetaminophen 10/11/18 10/11/18 10/12/18 22:04 23:15 01:18 WBC Hgb Hct MCV RDW Ray % (Auto) Ray # Seg Neutrophils % Seg Neuts % (Manual) Lymphocytes % (Manual) Monocytes % (Manual) Seg Neutrophils # Seg Neutrophils # Man Lymphocytes # (Manual) Monocytes # (Manual) APTT POC ABG pH POC ABG pCO2 POC ABG pO2 Sodium Potassium Chloride Carbon Dioxide BUN Creatinine Glucose POC Glucose 147 H 143 H 158 H Lactic Acid Calcium Phosphorus Total Bilirubin AST ALT Total Creatine Kinase CK-MB (CK-2) Troponin T Total Protein Albumin HDL Cholesterol Salicylates Acetaminophen 10/12/18 10/12/18 10/12/18 02:13 03:18 04:04 WBC Hgb Hct MCV RDW Ray % (Auto) Ray # Seg Neutrophils % Seg Neuts % (Manual) Lymphocytes % (Manual) Monocytes % (Manual) Seg Neutrophils # Seg Neutrophils # Man Lymphocytes # (Manual) Monocytes # (Manual) APTT POC ABG pH POC ABG pCO2 POC ABG pO2 Sodium 147 H Potassium Chloride 111.1 H Carbon Dioxide BUN 30 H Creatinine 2.0 H Glucose 154 H POC Glucose 148 H 142 H Lactic Acid Calcium 8.1 L Phosphorus Total Bilirubin AST 269 H ALT 204 H Total Creatine Kinase 3647 H CK-MB (CK-2) 48.3 H Troponin T 2.230 H* D Total Protein 5.8 L Albumin 2.6 L HDL Cholesterol Salicylates Acetaminophen 10/12/18 10/12/18 10/12/18 04:04 04:08 04:19 WBC 24.4 H Hgb Hct MCV RDW Ray % (Auto) Ray # Seg Neutrophils % Seg Neuts % (Manual) 32.0 L Lymphocytes % (Manual) Monocytes % (Manual) 8.0 H Seg Neutrophils # Seg Neutrophils # Man 7.8 H Lymphocytes # (Manual) Monocytes # (Manual) 2.0 H APTT POC ABG pH 7.317 L POC ABG pCO2 49.3 H POC ABG pO2 Sodium Potassium Chloride Carbon Dioxide BUN Creatinine Glucose POC Glucose 143 H Lactic Acid Calcium Phosphorus Total Bilirubin AST ALT Total Creatine Kinase CK-MB (CK-2) Troponin T Total Protein Albumin HDL Cholesterol Salicylates Acetaminophen 10/12/18 10/12/18 10/12/18 05:29 06:52 08:09 WBC Hgb Hct MCV RDW Ray % (Auto) Ray # Seg Neutrophils % Seg Neuts % (Manual) Lymphocytes % (Manual) Monocytes % (Manual) Seg Neutrophils # Seg Neutrophils # Man Lymphocytes # (Manual) Monocytes # (Manual) APTT POC ABG pH 7.322 L POC ABG pCO2 46.5 H POC ABG pO2 Sodium Potassium Chloride Carbon Dioxide BUN Creatinine Glucose POC Glucose 196 H 226 H Lactic Acid Calcium Phosphorus Total Bilirubin AST ALT Total Creatine Kinase CK-MB (CK-2) Troponin T Total Protein Albumin HDL Cholesterol Salicylates Acetaminophen 10/12/18 10/12/18 10/12/18 08:38 10:03 15:50 WBC Hgb Hct MCV RDW Ray % (Auto) Ray # Seg Neutrophils % Seg Neuts % (Manual) Lymphocytes % (Manual) Monocytes % (Manual) Seg Neutrophils # Seg Neutrophils # Man Lymphocytes # (Manual) Monocytes # (Manual) APTT POC ABG pH POC ABG pCO2 POC ABG pO2 Sodium Potassium Chloride Carbon Dioxide BUN Creatinine Glucose POC Glucose 138 H 148 H 221 H Lactic Acid Calcium Phosphorus Total Bilirubin AST ALT Total Creatine Kinase CK-MB (CK-2) Troponin T Total Protein Albumin HDL Cholesterol Salicylates Acetaminophen 10/12/18 10/12/18 10/12/18 18:39 20:56 21:34 WBC Hgb Hct MCV RDW Ray % (Auto) Ray # Seg Neutrophils % Seg Neuts % (Manual) Lymphocytes % (Manual) Monocytes % (Manual) Seg Neutrophils # Seg Neutrophils # Man Lymphocytes # (Manual) Monocytes # (Manual) APTT POC ABG pH 7.336 L POC ABG pCO2 46.0 H POC ABG pO2 Sodium Potassium Chloride Carbon Dioxide BUN Creatinine Glucose POC Glucose 255 H 260 H Lactic Acid Calcium Phosphorus Total Bilirubin AST ALT Total Creatine Kinase CK-MB (CK-2) Troponin T Total Protein Albumin HDL Cholesterol Salicylates Acetaminophen 10/13/18 10/13/18 10/13/18 02:29 05:09 05:40 WBC 17.0 H Hgb Hct MCV RDW Ray % (Auto) 9.2 H Ray # 1.6 H Seg Neutrophils % 76.2 H Seg Neuts % (Manual) Lymphocytes % (Manual) Monocytes % (Manual) Seg Neutrophils # 12.9 H Seg Neutrophils # Man Lymphocytes # (Manual) Monocytes # (Manual) APTT POC ABG pH POC ABG pCO2 POC ABG pO2 Sodium Potassium Chloride Carbon Dioxide BUN Creatinine Glucose POC Glucose 216 H 249 H Lactic Acid Calcium Phosphorus Total Bilirubin AST ALT Total Creatine Kinase CK-MB (CK-2) Troponin T Total Protein Albumin HDL Cholesterol Salicylates Acetaminophen 10/13/18 10/13/18 05:40 05:40 WBC Hgb Hct MCV RDW Ray % (Auto) Ray # Seg Neutrophils % Seg Neuts % (Manual) Lymphocytes % (Manual) Monocytes % (Manual) Seg Neutrophils # Seg Neutrophils # Man Lymphocytes # (Manual) Monocytes # (Manual) APTT POC ABG pH POC ABG pCO2 POC ABG pO2 Sodium 146 H Potassium Chloride 109.8 H Carbon Dioxide BUN 35 H Creatinine Glucose 245 H POC Glucose Lactic Acid Calcium 7.9 L Phosphorus Total Bilirubin AST ALT Total Creatine Kinase CK-MB (CK-2) Troponin T 0.952 H* D Total Protein Albumin HDL Cholesterol Salicylates Acetaminophen Chest x-ray: image reviewed Allied health notes reviewed: nursing
[2018-10-13] MEDS: ASPIRIN PO SCH (09:16)
[2018-10-13] MEDS: ZITHROMAX 500 MG in NACL 0.9% 250ML 250 ML IV SCH (09:16)
[2018-10-13] MEDS: SODIUM CHLORIDE FLUSH SYRINGE 10 ML IV SCH ×2 (09:17→22:27)
[2018-10-13] MEDS: PEPCID IV SCH ×2 (09:17→22:26)
--- NOTE | 2018-10-13 12:11 | Vascular Lab Report ---
PROCEDURE: VL CAROTID DUPLEX BILAT TECHNIQUE: Duplex Doppler ultrasound of the common, internal and external carotid arteries and the v ertebral arteries was performed bilaterally. Hickman scale imaging, velocity spectral waveform analysis, and color flow Doppler were employed. HISTORY: stroke COMPARISONS: None . Note: Measurement of carotid stenosis is based on flow velocity values that correlate with the [place] Symptomatic Carotid Endarterectomy Trial (NASCET) based stenosis criteria using the internal carotid artery diameter as the denominator for stenosis calculation. FINDINGS: The right side could not be imaged due to a right internal jugular vein catheter. LEFT carotid artery: Velocities: ICA PSV: 150 cm/sec ICA End diastolic: 61 cm/sec CCA PSV: 91 cm/sec IC/CC ratio: 1.6 4 Plaque/color flow: Mild heterogeneous plaque without significant spectral broadening or abnormal col or flow . LEFT vertebral artery: Antegrade systolic and diastolic flow IMPRESSION: 1. RIGHT carotid: Not imaged. 2. LEFT carotid: 50-69% stenosis of the left internal carotid artery. This document is electronically signed by Belgica Abdi., Oct 13 2018 12:10:04 PM ET
--- NOTE | 2018-10-13 13:26 | Progress Note ---
Assessment and Plan Patient with multiple following medical issues. In addition he has developed atrial fibrillation. Neurology evaluation is noted. Will review the echo done that has already been ordered. Leukocytosis is gradually improving. Patient has no significant cardiac murmur and there is no evidence of peripheral lesions to suggest endocarditis. Blood cultures so far have been negative. Echocardiogram shows severe no significant valvular lesions. Overall prognosis remains guarded. We will continue monitoring. Non-STelevation myocardial infarction. Acute hypoxemic respiratory failure, on mechanical ventilator support. Drug overdose. Acute chronic obstructive pulmonary disease exacerbation. Acute kidney injury. Metabolic acidosis. Lactic acidosis. Elevated serum transaminases. - Patient Problems (1) Atrial fibrillation Current Visit: Yes Status: Acute (2) Acute renal insufficiency Current Visit: Yes Status: Acute (3) Acute respiratory failure Current Visit: Yes Status: Acute (4) Altered mental state Current Visit: Yes Status: Acute Qualifiers: Altered mental status type: unspecified Qualified Code(s): R41.82 - Altered mental status, unspecified (5) Elevated troponin I level Current Visit: Yes Status: Acute (6) Hypotension Current Visit: Yes Status: Acute Qualifiers: Hypotension type: unspecified hypotension type Qualified Code(s): I95.9 - Hypotension, unspecified (7) Lactic acid acidosis Current Visit: Yes Status: Acute (8) Metabolic acidosis Current Visit: Yes Status: Acute (9) NSTEMI (non-ST elevated myocardial infarction) Current Visit: Yes Status: Acute (10) 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 Appears to be comfortable. Cardiac rhythm has been stable. Objective Vital Signs Temp Pulse Pulse Pulse Resp Resp BP 10/13/18 12:01 102 H 17 119/48 10/13/18 12:00 102 H 25 H 10/13/18 11:49 98.7 F 10/13/18 11:45 101 H 25 H 150/68 10/13/18 11:31 100 H 18 150/68 10/13/18 11:24 113 H 126/66 10/13/18 11:15 101 H 15 126/66 10/13/18 11:00 104 H 14 135/66 10/13/18 10:45 108 H 15 139/64 10/13/18 10:30 105 H 32 H 124/70 10/13/18 10:15 109 H 13 124/70 10/13/18 10:01 103 H 21 128/75 10/13/18 10:00 109 H 10/13/18 09:45 108 H 24 121/78 10/13/18 09:40 106 H 112/62 10/13/18 09:30 102 H 25 H 112/62 10/13/18 09:15 98 H 25 H 116/70 10/13/18 09:00 101 H 21 117/72 10/13/18 08:45 104 H 25 H 109/68 10/13/18 08:30 102 H 21 114/58 10/13/18 08:15 104 H 25 H 112/70 10/13/18 08:00 105 H 105 H 25 H 106/74 10/13/18 07:55 108 H 25 H 10/13/18 07:45 104 H 25 H 113/71 10/13/18 07:40 105 H 25 H 10/13/18 07:35 111 H 130/89 10/13/18 07:31 107 H 26 H 130/89 10/13/18 07:23 98.1 F 10/13/18 07:15 102 H 25 H 121/70 10/13/18 07:00 105 H 25 H 120/72 10/13/18 06:45 106 H 23 120/72 10/13/18 06:40 115 H 25 H 10/13/18 06:15 103 H 25 H 123/74 10/13/18 06:00 103 H 25 H 115/72 10/13/18 05:45 109 H 18 144/96 10/13/18 05:30 110 H 25 H 124/76 10/13/18 05:16 109 H 14 151/93 10/13/18 05:00 108 H 25 H 124/78 10/13/18 04:45 108 H 25 H 127/79 10/13/18 04:30 104 H 25 H 125/78 10/13/18 04:15 114 H 24 126/78 10/13/18 04:00 114 H 24 120/79 10/13/18 03:45 106 H 24 134/82 03:34 97.8 F 10/13/18 03:30 108 H 15 131/89 10/13/18 03:15 108 H 25 H 121/85 10/13/18 03:00 112 H 20 112/91 10/13/18 02:45 106 H 18 135/84 10/13/18 02:30 121 H 111 H 25 H 25 H 132/77 10/13/18 02:19 108 H 25 H 10/13/18 02:15 107 H 25 H 132/79 10/13/18 02:14 114 H 134/84 10/13/18 01:46 105 H 25 H 134/84 10/13/18 01:30 104 H 25 H 137/77 10/13/18 01:15 104 H 25 H 129/80 10/13/18 01:00 110 H 20 129/79 10/13/18 00:45 120 H 25 H 127/79 10/13/18 00:30 109 H 18 149/95 10/13/18 00:15 110 H 25 H 129/81 10/13/18 00:00 113 H 25 H 121/78 10/12/18 23:45 118 H 25 H 130/83 10/12/18 23:30 105 H 25 H 132/81 10/12/18 23:15 106 H 25 H 134/81 10/12/18 23:12 99.5 F 10/12/18 23:00 111 H 25 H 124/77 10/12/18 22:45 106 H 25 H 125/79 10/12/18 22:30 120 H 25 H 127/70 10/12/18 22:16 107 H 25 H 130/67 10/12/18 22:03 130 H 10/12/18 22:00 137 H 25 H 129/62 10/12/18 21:45 108 H 25 H 128/81 10/12/18 21:30 124 H 25 H 123/83 10/12/18 21:26 130 H 15 126/78 10/12/18 21:15 123 H 26 H 126/78 10/12/18 21:00 108 H 20 125/81 10/12/18 20:46 123 H 26 H 141/81 10/12/18 20:30 112 H 30 H 111/78 10/12/18 20:15 114 H 20 112/82 05/03/19 20:00 98.4 F 112 H 30 H 117/73 05/03/19 19:45 130 H 29 H 117/73 05/03/19 19:30 122 H 30 H 110/71 05/03/19 19:15 113 H 105 H 30 H 30 H 118/62 05/03/19 19:00 108 H 113 H 30 H 30 H 118/83 05/03/19 18:55 118 H 113/81 05/03/19 18:45 111 H 30 H 113/81 05/03/19 18:40 114 H 30 H 121/82 05/03/19 18:30 115 H 30 H 121/82 05/03/19 18:20 107 H 30 H 110/80 05/03/19 18:10 122 H 30 H 118/85 05/03/19 18:00 107 H 30 H 118/85 05/03/19 17:50 106 H 30 H 112/77 05/03/19 17:40 107 H 30 H 122/80 05/03/19 17:30 108 H 30 H 122/80 05/03/19 17:20 107 H 30 H 117/80 05/03/19 17:10 111 H 30 H 124/83 05/03/19 17:00 108 H 30 H 124/83 05/03/19 16:50 109 H 30 H 116/78 05/03/19 16:40 107 H 30 H 123/80 05/03/19 16:34 113 H 123/80 05/03/19 16:30 118 H 30 H 123/80 05/03/19 16:20 111 H 30 H 126/79 05/03/19 16:10 109 H 30 H 121/79 05/03/19 16:00 99.3 F 111 H 101 H 30 H 121/79 05/03/19 15:50 109 H 30 H 126/82 05/03/19 15:40 118 H 30 H 126/82 05/03/19 15:30 110 H 30 H 126/82 05/03/19 15:20 113 H 30 H 132/80 05/03/19 15:10 115 H 30 H 123/66 05/03/19 15:00 124 H 30 H 123/66 05/03/19 14:51 116 H 23 05/03/19 14:50 113 H 24 116/80 10/12/18 14:40 114 H 30 H 121/82 10/12/18 14:38 113 H 30 H 10/12/18 14:30 114 H 30 H 121/82 10/12/18 14:20 109 H 30 H 131/83 10/12/18 14:10 114 H 30 H 113/84 10/12/18 14:00 114 H 30 H 113/84 10/12/18 13:50 111 H 30 H 124/82 10/12/18 13:40 112 H 30 H 113/78 10/12/18 13:30 117 H 30 H 113/78 10/12/18 13:20 130 H 30 H 118/82 Pulse Ox 10/13/18 12:01 93 10/13/18 12:00 93 10/13/18 11:49 10/13/18 11:45 95 10/13/18 11:31 96 10/13/18 11:24 96 10/13/18 11:15 94 10/13/18 11:00 96 10/13/18 10:45 95 10/13/18 10:30 96 10/13/18 10:15 95 10/13/18 10:01 97 10/13/18 10:00 10/13/18 09:45 94 10/13/18 09:40 97 10/13/18 09:30 94 10/13/18 09:15 95 10/13/18 09:00 95 10/13/18 08:45 93 10/13/18 08:30 95 10/13/18 08:15 94 10/13/18 08:00 96 10/13/18 07:55 10/13/18 07:45 91 10/13/18 07:40 10/13/18 07:35 96 10/13/18 07:31 94 10/13/18 07:23 10/13/18 07:15 93 10/13/18 07:00 92 10/13/18 06:45 92 10/13/18 06:40 94 10/13/18 06:15 93 10/13/18 06:00 91 10/13/18 05:45 95 10/13/18 05:30 10/13/18 05:16 96 10/13/18 05:00 93 10/13/18 04:45 94 10/13/18 04:30 93 10/13/18 04:15 93 10/13/18 04:00 92 10/13/18 03:45 92 10/13/18 03:34 10/13/18 03:30 91 10/13/18 03:15 90 10/13/18 03:00 95 10/13/18 02:45 90 10/13/18 02:30 92 10/13/18 02:19 10/13/18 02:15 95 10/13/18 02:14 98 10/13/18 01:46 96 10/13/18 01:30 94 10/13/18 01:15 95 10/13/18 01:00 97 10/13/18 00:45 93 10/13/18 00:30 95 10/13/18 00:15 94 10/13/18 00:00 94 10/12/18 23:45 95 10/12/18 23:30 96 10/12/18 23:15 95 10/12/18 23:12 10/12/18 23:00 94 10/12/18 22:45 95 10/12/18 22:30 94 10/12/18 22:16 92 10/12/18 22:03 10/12/18 22:00 91 10/12/18 21:45 90 10/12/18 21:30 92 10/12/18 21:26 96 10/12/18 21:15 94 10/12/18 21:00 95 10/12/18 20:46 94 10/12/18 20:30 95 10/12/18 20:15 95 10/12/18 20:00 95 10/12/18 19:45 94 10/12/18 19:30 94 10/12/18 19:15 94 10/12/18 19:00 95 10/12/18 18:55 96 10/12/18 18:45 95 10/12/18 18:40 97 10/12/18 18:30 95 10/12/18 18:20 97 10/12/18 18:10 97 10/12/18 18:00 95 10/12/18 17:50 96 10/12/18 17:40 96 10/12/18 17:30 05 17:20 96 10/12/18 17:10 97 05/03/19 17:00 95 10/12/18 16:50 96 10/12/18 16:40 96 10/12/18 16:34 97 10/12/18 16:30 94 10/12/18 16:20 96 10/12/18 16:10 96 10/12/18 16:00 95 10/12/18 15:50 96 10/12/18 15:40 95 10/12/18 15:30 93 10/12/18 15:20 95 10/12/18 15:10 96 10/12/18 15:00 95 10/12/18 14:51 10/12/18 14:50 95 10/12/18 14:40 96 10/12/18 14:38 10/12/18 14:30 97 10/12/18 14:20 96 10/12/18 14:10 96 10/12/18 14:00 95 10/12/18 13:50 97 10/12/18 13:40 97 10/12/18 13:30 96 10/12/18 13:20 98 - Physical Examination General: Other (intubated) Neck: Positive: neck supple Cardiac: Positive: irregularly irregular Lungs: Positive: Decreased Breath Sounds (both bases) Neuro: Positive: Other (intubated) Abdomen: Positive: Soft. Negative: Tender Skin: Negative: Rash Extremities: Present: Other (chronic skin changes noted bilaterally ) - Labs and Meds CBC 10/13/18 Range/Units 05:40 WBC 17.0 H (4.5-11.0) K/mm3 RBC 4.28 (3.65-5.03) M/mm3 Hgb 13.0 (11.8-15.2) gm/dl Hct 39.6 (35.5-45.6) % Plt Count 176 (140-440) K/mm3 Lymph # 2.3 (1.2-5.4) K/mm3 [place] # 1.6 H (0.0-0.8) K/mm3 Eos # 0.0 (0.0-0.4) K/mm3 Baso # 0.1 (0.0-0.1) K/mm3 Comprehensive Metabolic Panel 10/13/18 Range/Units 05:40 Sodium 146 H (137-145) mmol/L Potassium 4.2 (3.6-5.0) mmol/L Chloride 109.8 H (98-107) mmol/L Carbon Dioxide 27 (22-30) mmol/L BUN 35 H (9-20) mg/dL Creatinine 1.5 (0.8-1.5) mg/dL Glucose 245 H (75-100) mg/dL Calcium 7.9 L (8.4-10.2) mg/dL - Imaging and Cardiology EKG: report reviewed, image reviewed Echo: report reviewed - EKG Sinus rhythms and dysrhythmias: sinus rhythm - Allied health notes Allied health notes reviewed: nursing
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
--- NOTE | 2018-10-13 13:45 | Vascular Lab Report ---
PROCEDURE: VL ARTERIAL DUPLEX LE BILAT TECHNIQUE: Duplex Doppler ultrasound of bilateral lower extremity arteries was performed with image documentation. HISTORY: cold lower extremeties COMPARISONS: None . FINDINGS: RIGHT LOWER EXTREMITY: Arterial waveforms: Monophasic . Thrombus: There is occlusive thrombus within the right common femoral artery with reconstitution of flow distally. There is also occlusive thrombus within the right external iliac artery. Stenosis: No specific areas of stenosis in the patent vessels extending from the right distal common femoral artery to the calf vessels. Color signal: Lack of flow within the right proximal common femoral artery . Significant segmental velocity differential: None . LEFT LOWER EXTREMITY: Arterial waveforms: Triphasic with the exception of the left distal superficial femoral artery and p roximal popliteal artery which demonstrate monophasic waveforms. Lack of waveforms are seen in the ar eas of occlusion noted below . Thrombus: Thrombus is seen within the left distal popliteal artery with lack of color flow. There is also thrombus within the left anterior and posterior tibial arteries which appear occluded with lack of color flow. Stenosis: None . Color signal: Lack of color flow in areas of occlusion as noted above. Remaining color flow is jania l in the proximal left lower extremity. Significant segmental velocity differential: None . IMPRESSION: 1. Occlusive thrombus within the right external iliac artery extending to the right common femoral ar nash. 2. Occlusive thrombus within the left distal popliteal artery extending to the anterior and posterior tibial arteries which are also occluded. This document is electronically signed by Belgica Abdi., Oct 13 2018 01:43:17 PM ET
--- NOTE | 2018-10-13 13:59 | Progress Note ---
Assessment and Plan Possible acute/subacute right FT CVA - Initial CT head had no acute finding - Not a candidate for tPA, cont to monitor off aspirin per teleneurology - wait for MRI brain Severe sepsis with shock -Probably secondary to pneumonia -On sepsis protocol -On IV broad-spectrum antibiotics with Vanc and Zosyn -On IV Levophed -Blood and sputum cultures pending Acute respiratory failure with hypoxia and hypercapnia -Probably secondary to acute COPD/asthma exacerbation -Status post intubation on mechanical ventilator -Pulmonology consulted acute thrombus in bilateral lower extremitie - vascular consulted, will wait for recommendation - will not start heparin drip due to acute CVA Hyperglycemia, not in DKA -s/p insulin drip, cont SSI for now with TF Acute toxic/metabolic encephalopathy -Secondary to drug overdose versus sepsis/DKA -Head CT scan negative Seizure -On IV lorazepam drip Elevated troponin -Probably secondary to demand ischemia from acute process -We'll cont serial troponin level monitoring -Echocardiogram for further evaluation -Cardiology consulted, recommended medical Mx for now, ARF -On IV fluid, will cont to monitor creatinine level Hyperkalemia -On IV fluid, will monitor potassium level Abnormal LFT -Probably due to chronic hepatitis C virus infection -Abdominal US to assess for cirrhosis Severe protein calorie malnutrition -Dietitian consulted DVT prophylaxis with heparin and GI prophylaxis with famotidine Disposition: Patient will be admitted to the ICU I spent 45 minutes providing critical care to this seriously ill patient who requires frequent reassessments of his cardiovascular, respiratory and neurologic status. Brief History: Patient is a 58-year-old male who was brought to the ED by EMS on account of altered mental status. It was reported that patient was found unresponsive by friends and family. Patient's last known well time was 10:30 PM on 10/10/18. He was given Narcan by EMS en route to the hospital with minimal response. Patient began to seize as EMS pulled into the hospital. Per report, family told EMS that the patient overdosed and has been using Dilaudid. He was intubated in the ER to protect airway, admitted to ICU for further evaluation. Subjective Date of service: 10/13/18 Principal diagnosis: Ac hypercapnic hypoxemic Resp failure; Drug OD; AE-COPD; NINOSKA; Seizures Interval history: Patient seen and examined' Noted o/n event, discussed with RN/Pulmonary Patient remained intubated and sedated MRI brain pending Objective - Exam Narrative Exam: General appearance: Present: no acute distress, other (intubated, opens eyes to voice) - EENT Eyes: Present: irregular pupil (sluggish) ENT: other (patient is intubated) - Neck Neck: Present: supple - Respiratory Respiratory effort: normal Respiratory: bilateral: CTA - Cardiovascular Rhythm: regular (with tachycardia) Heart Sounds: Present: S1 & S2 - Extremities Extremity abnormal: b/l LE cyanosis (ischemic changes to plantar surface of right foot with small ulceration on right fourth toe with scab. The right leg is warm down to the foot. The left leg is warm to the mid calf with ischemic changes on both the plantar and dorsal surface of the foot the left femoral pulse is easily palpable and the right femoral pulse is thready but palpable) - Abdominal General gastrointestinal: Present: soft, non-distended, normal bowel sounds Male genitourinary: Present: deferred - Integumentary Integumentary: Present: clear, warm, dry - Musculoskeletal Musculoskeletal: other (unable to assess because patient is intubated and sedated) - Psychiatric Psychiatric: other (unable to assess because patient is intubated and sedated) - Neurologic Neurologic: focal deficits (the patient is not moving his left upper or lower extremities) - Constitutional Vitals: Vital Signs - 12hr 10/13/18 10/13/18 10/13/18 02:14 02:15 02:19 Temperature Pulse Rate 114 H 107 H Pulse Rate [ 108 H Anterior Bilateral Throughout] Pulse Rate [ From Monitor] Respiratory 25 H Rate Respiratory 25 H Rate [Anterior Bilateral Throughout] Blood Pressure 134/84 132/79 O2 Sat by Pulse 98 95 Oximetry 10/13/18 10/13/18 10/13/18 02:30 02:45 03:00 Temperature Pulse Rate 121 H 106 H 112 H Pulse Rate [ 111 H Anterior Bilateral Throughout] Pulse Rate [ From Monitor] Respiratory 25 H 18 20 Rate Respiratory 25 H Rate [Anterior Bilateral Throughout] Blood Pressure 132/77 135/84 112/91 O2 Sat by Pulse 92 90 95 Oximetry 10/13/18 10/13/18 10/13/18 03:15 03:30 03:34 Temperature 97.8 F Pulse Rate 108 H 108 H Pulse Rate [ Anterior Bilateral Throughout] Pulse Rate [ From Monitor] Respiratory 25 H 15 Rate Respiratory Rate [Anterior Bilateral Throughout] Blood Pressure 121/85 131/89 O2 Sat by Pulse 90 91 Oximetry 10/13/18 10/13/18 10/13/18 03:45 04:00 04:15 Temperature Pulse Rate 106 H 114 H 114 H Pulse Rate [ Anterior Bilateral Throughout] Pulse Rate [ From Monitor] Respiratory 24 24 24 Rate Respiratory Rate [Anterior Bilateral Throughout] Blood Pressure 134/82 120/79 126/78 O2 Sat by Pulse 92 92 93 Oximetry 10/13/18 10/13/18 10/13/18 04:30 04:45 05:00 Temperature Pulse Rate 104 H 108 H 108 H Pulse Rate [ Anterior Bilateral Throughout] Pulse Rate [ From Monitor] Respiratory 25 H 25 H 25 H Rate Respiratory Rate [Anterior Bilateral Throughout] Blood Pressure 125/78 127/79 124/78 O2 Sat by Pulse 93 94 93 Oximetry 10/13/18 10/13/18 10/13/18 05:16 05:30 05:45 Temperature Pulse Rate 109 H 110 H 109 H Pulse Rate [ Anterior Bilateral Throughout] Pulse Rate [ From Monitor] Respiratory 14 25 H 18 Rate Respiratory Rate [Anterior Bilateral Throughout] Blood Pressure 151/93 124/76 144/96 O2 Sat by Pulse 96 95 Oximetry 10/13/18 10/13/18 10/13/18 06:00 06:15 06:40 Temperature Pulse Rate 103 H 103 H 115 H Pulse Rate [ Anterior Bilateral Throughout] Pulse Rate [ From Monitor] Respiratory 25 H 25 H 25 H Rate Respiratory Rate [Anterior Bilateral Throughout] Blood Pressure 115/72 123/74 O2 Sat by Pulse 91 93 94 Oximetry 10/13/18 10/13/18 10/13/18 06:45 07:00 07:15 Temperature Pulse Rate 106 H 105 H 102 H Pulse Rate [ Anterior Bilateral Throughout] Pulse Rate [ From Monitor] Respiratory 23 25 H 25 H Rate Respiratory Rate [Anterior Bilateral Throughout] Blood Pressure 120/72 120/72 121/70 O2 Sat by Pulse 92 92 93 Oximetry 10/13/18 10/13/18 10/13/18 07:23 07:31 07:35 Temperature 98.1 F Pulse Rate 107 H 111 H Pulse Rate [ Anterior Bilateral Throughout] Pulse Rate [ From Monitor] Respiratory 26 H Rate Respiratory Rate [Anterior Bilateral Throughout] Blood Pressure 130/89 130/89 O2 Sat by Pulse 94 96 Oximetry 10/13/18 10/13/18 10/13/18 07:40 07:45 07:55 Temperature Pulse Rate 104 H Pulse Rate [ 105 H 108 H Anterior Bilateral Throughout] Pulse Rate [ From Monitor] Respiratory 25 H Rate Respiratory 25 H 25 H Rate [Anterior Bilateral Throughout] Blood Pressure 113/71 O2 Sat by Pulse 91 Oximetry 10/13/18 10/13/18 10/13/18 08:00 08:15 08:30 Temperature Pulse Rate 105 H 104 H 102 H Pulse Rate [ Anterior Bilateral Throughout] Pulse Rate [ 105 H From Monitor] Respiratory 25 H 25 H 21 Rate Respiratory Rate [Anterior Bilateral Throughout] Blood Pressure 106/74 112/70 114/58 O2 Sat by Pulse 96 94 95 Oximetry 10/13/18 10/13/18 10/13/18 08:45 09:00 09:15 Temperature Pulse Rate 104 H 101 H 98 H Pulse Rate [ Anterior Bilateral Throughout] Pulse Rate [ From Monitor] Respiratory 25 H 21 25 H Rate Respiratory Rate [Anterior Bilateral Throughout] Blood Pressure 109/68 117/72 116/70 O2 Sat by Pulse 93 95 95 Oximetry 10/13/18 10/13/18 10/13/18 09:30 09:40 09:45 Temperature Pulse Rate 102 H 106 H 108 H Pulse Rate [ Anterior Bilateral Throughout] Pulse Rate [ From Monitor] Respiratory 25 H 24 Rate Respiratory Rate [Anterior Bilateral Throughout] Blood Pressure 112/62 112/62 121/78 O2 Sat by Pulse 94 97 94 Oximetry 10/13/18 10/13/18 10/13/18 10:00 10:01 10:15 Temperature Pulse Rate 109 H 103 H 109 H Pulse Rate [ Anterior Bilateral Throughout] Pulse Rate [ From Monitor] Respiratory 21 13 Rate Respiratory Rate [Anterior Bilateral Throughout] Blood Pressure 128/75 124/70 O2 Sat by Pulse 97 95 Oximetry 10/13/18 10/13/18 10/13/18 10:30 10:45 11:00 Temperature Pulse Rate 105 H 108 H 104 H Pulse Rate [ Anterior Bilateral Throughout] Pulse Rate [ From Monitor] Respiratory 32 H 15 14 Rate Respiratory Rate [Anterior Bilateral Throughout] Blood Pressure 124/70 139/64 135/66 O2 Sat by Pulse 96 95 96 Oximetry 10/13/18 10/13/18 10/13/18 11:15 11:24 11:31 Temperature Pulse Rate 101 H 113 H 100 H Pulse Rate [ Anterior Bilateral Throughout] Pulse Rate [ From Monitor] Respiratory 15 18 Rate Respiratory Rate [Anterior Bilateral Throughout] Blood Pressure 126/66 126/66 150/68 O2 Sat by Pulse 94 96 96 Oximetry 10/13/18 10/13/18 10/13/18 11:45 11:49 12:00 Temperature 98.7 F Pulse Rate 101 H Pulse Rate [ Anterior Bilateral Throughout] Pulse Rate [ 102 H From Monitor] Respiratory 25 H 25 H Rate Respiratory Rate [Anterior Bilateral Throughout] Blood Pressure 150/68 O2 Sat by Pulse 95 93 Oximetry 10/13/18 10/13/18 12:01 13:53 Temperature Pulse Rate 102 H 102 H Pulse Rate [ Anterior Bilateral Throughout] Pulse Rate [ From Monitor] Respiratory 17 Rate Respiratory Rate [Anterior Bilateral Throughout] Blood Pressure 119/48 126/65 O2 Sat by Pulse 93 95 Oximetry - Labs CBC & Chem 7: 10/13/18 05:40 10/13/18 05:40 Labs: Abnormal lab results 10/12/18 10/12/18 10/12/18 Range/Units 15:50 18:39 20:56 WBC (4.5-11.0) K/mm3 [place] % (Auto) (0.0-7.3) % [place] # (0.0-0.8) K/mm3 Seg Neutrophils % (40.0-70.0) % Seg Neutrophils # (1.8-7.7) K/mm3 POC ABG pH 7.336 L (7.35-7.45) POC ABG pCO2 46.0 H (35-45) Sodium (137-145) mmol/L Chloride (98-107) mmol/L BUN (9-20) mg/dL Glucose (75-100) mg/dL POC Glucose 221 H 255 H (70-105) Calcium (8.4-10.2) mg/dL Troponin T (0.00-0.029) ng/mL 10/12/18 10/13/18 10/13/18 Range/Units 21:34 02:29 05:09 WBC (4.5-11.0) K/mm3 [place] % (Auto) (0.0-7.3) % [place] # (0.0-0.8) K/mm3 Seg Neutrophils % (40.0-70.0) % Seg Neutrophils # (1.8-7.7) K/mm3 POC ABG pH (7.35-7.45) POC ABG pCO2 (35-45) Sodium (137-145) mmol/L Chloride (98-107) mmol/L BUN (9-20) mg/dL Glucose (75-100) mg/dL POC Glucose 260 H 216 H 249 H (70-105) Calcium (8.4-10.2) mg/dL Troponin T (0.00-0.029) ng/mL 10/13/18 10/13/18 10/13/18 Range/Units 05:40 05:40 05:40 WBC 17.0 H (4.5-11.0) K/mm3 [place] % (Auto) 9.2 H (0.0-7.3) % [place] # 1.6 H (0.0-0.8) K/mm3 Seg Neutrophils % 76.2 H (40.0-70.0) % Seg Neutrophils # 12.9 H (1.8-7.7) K/mm3 POC ABG pH (7.35-7.45) POC ABG pCO2 (35-45) Sodium 146 H (137-145) mmol/L Chloride 109.8 H (98-107) mmol/L BUN 35 H (9-20) mg/dL Glucose 245 H (75-100) mg/dL POC Glucose (70-105) Calcium 7.9 L (8.4-10.2) mg/dL Troponin T 0.952 H* D (0.00-0.029) ng/mL 10/13/18 Range/Units 09:46 WBC (4.5-11.0) K/mm3 [place] % (Auto) (0.0-7.3) % [place] # (0.0-0.8) K/mm3 Seg Neutrophils % (40.0-70.0) % Seg Neutrophils # (1.8-7.7) K/mm3 POC ABG pH (7.35-7.45) POC ABG pCO2 (35-45) Sodium (137-145) mmol/L Chloride (98-107) mmol/L BUN (9-20) mg/dL Glucose (75-100) mg/dL POC Glucose 235 H (70-105) Calcium (8.4-10.2) mg/dL Troponin T (0.00-0.029) ng/mL
[2018-10-13] MEDS ORDERED: TRIPLE ANTIBIOTIC TP ONE (14:48)
[2018-10-13] MEDS: UNASYN/NS 3 GM/100 ML 3 GM/100 ML BAG IV SCH ×2 (15:07→17:27)
[2018-10-13] MEDS: SODIUM BICARBONATE 100 MEQ in D5W 1,000 ML IV SCH (15:35)
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
[2018-10-14] MEDS: UNASYN/NS 3 GM/100 ML 3 GM/100 ML BAG IV SCH ×5 (00:20→23:11)
[2018-10-14] MEDS: HumuLIN R SUB-Q SCH ×6 (02:25→22:05)
--- NOTE | 2018-10-14 02:26 | Consultation ---
HISTORY OF PRESENT ILLNESS: This is a 58-year-old white male, who is admitted to [facility] on 10/10/2018. This patient has a prior history of having a stroke when he was admitted to [facility] in 03/2018. History was obtained by the dameon, who is quite familiar with the history. He states that he had had a long history of p.o. drug abuse, primarily opiates. Although on this admission, he is admitted with a diagnosis of having acute methamphetamine with IV Dilaudid use. CT scan, he has a partially hemorrhagic infarct over the right posterior parietal lobe and 2 adjacent area suggestive of two areas of focal ischemia, probably embolic. He also has in addition a very large old area of infarct present in his right medial, lateral, inferior cerebellum, but without involvement of brainstem, there is a very small component of hemorrhage in that area as well distally, which may suggest a course that this was as well embolic and both of these lesions have somewhat the same appearance. The patient is comatose, on a ventilator at the present time. No response to pain. He has positive doll's eyes. Pupils are slightly reactive to light. I do not notice any seizure activity. At this point, this is probably the consequence of IV drug abuse, it is difficult for me to tell from the 3 lesions, which of these is related to the episode when he was in [facility], although I suspect that I am seeing a large old chronic lesion in the mid portion of the frontoparietal area seen on the superior cuts, which was probably the incident from March and what would basically indicate that there are 3 separate areas of rather moderate brain damage as a result of this process likely induced by IV drug abuse. I spoke with the dameon and advised him on want to check an EEG. Prognosis is not altogether clear because polysubstance abuse and one could not exactly sure the source of the offending agent. These may be body designer drugs, which have a much different and more complicated process. Recommendations for care are follow the same course of treatment is indicated. We will watch for any intervening seizure activity, which may develop as a consequence of this process. JOB# [id number] SALVATORE/NTS
[2018-10-14] MEDS: DUONEB *Not for PRN Use IH SCH ×4 (03:41→23:37)
--- NOTE | 2018-10-14 04:17 | XRay Report ---
PROCEDURE: XR CHEST 1V AP TECHNIQUE: Single AP chest HISTORY: follow up respiratory failure COMPARISONS: October 13 FINDINGS: ET tube, right-sided PICC line remaining place. NG tube has been retracted proximally and the distal tip is not seen at the level of the distal esoph eva. Recommend advancing the NG tube further into the stomach. The cardiac silhouette is not enlarged. No new areas of airspace consolidation or pleural effusions. Pulmonary vasculature are within normal limits. No other significant interval change. IMPRESSION: Distal tip of the NG tube now seen at the level of the distal esophagus. Recommend advancing the NG t ube further into the stomach. No other significant interval change.. This document is electronically signed by Kennedy Saucedo MD., Oct 14 2018 04:15:28 AM ET
[2018-10-14] MEDS ORDERED: VANCOMYCIN 1,250 MG in NACL 0.9% 250ML 250 ML IV SCH (05:00)
[2018-10-14] MEDS: HEPARIN SUB-Q SCH ×3 (05:18→22:00)
[2018-10-14] MEDS: fentaNYL DRIP Premix 2,000 MCG/100 ML BAG IV SCH ×2 (05:18→15:35)
--- NOTE | 2018-10-14 09:10 | Progress Note ---
Assessment and Plan Cultures: Blood culture 10/11/2018 no growth Sputum culture 10/12/2018 no growth today Urine culture 10/11/2018 neg Assessment: 58 y/o male with history of hemorrhagic CVA in 03/2018, rheumatic fever as a child, asthma, HTN, DM, hepatitis, tobacco use, polysubstance abuse; admitted on 10/10/2018 due to altered mental status: 1) Acute encephalopathy: Continuing, likely due to opioid overdoes 2) Sepis Improved. Leukocytosis continuing. Etiology most likely aspiration pneumonia. Left leg Ischemia. 3) LLL pneumonia with mucous plugging on CTA 4) Elevated LFTs from sepsis 5) NINOSKA: creatinine now 0.7 6) PVD: left leg ischemia.. Dry gangrene. Possible amputation. Vascular following Recommendations: - follow-up blood cultures and sputum cultures - continue unasyn renally adjusted, D2 [facility] M: [phone] O:[phone] Subjective Date of service: 10/14/18 Principal diagnosis: Ac hypercapnic hypoxemic Resp failure; Drug OD; AE-COPD; NINOSKA; Seizures Interval history: Patient seen and examined. Intubated, opens eyes to name only. Not following any commands. Family member at bedside. Objective - Exam Narrative Exam: General: intubated sedated Eyes: anicteric sclerae, moist conjunctivae; no lid-lag; PERRLA HENT: Atraumatic; oropharynx +ETT +OGT Neck: Trachea midline; supple, no thyromegaly or lymphadenopathy Lungs: art rhonchi CV: tachycardic Abdomen: Soft, mild tenderness Extremities: No peripheral edema . PVD - left leg ischemia. Skin: no rash Psych:lethargic Neuro: lethargic - Constitutional Vitals: Vital Signs Temp Pulse Resp BP Pulse Ox 98.8 F 94 H 25 H 125/66 94 10/14/18 08:00 10/14/18 08:00 10/14/18 08:00 10/14/18 08:00 10/14/18 08:00 Temperature -Last 24 Hours Temperature 98.8 F Temperature 98.0 F Temperature 98.9 F Temperature 99.2 F Temperature 98.3 F Temperature 98.7 F - Labs CBC & Chem 7: 10/14/18 09:45 10/14/18 09:45 Labs: Abnormal lab results 10/13/18 10/13/18 10/13/18 Range/Units 09:46 13:12 13:58 POC ABG pCO2 46.2 H 51.2 H (35-45) POC ABG pO2 52 L (80-105) POC Glucose 235 H (70-105) Troponin T (0.00-0.029) ng/mL 10/13/18 10/13/18 10/13/18 Range/Units 16:15 17:30 21:25 POC ABG pCO2 (35-45) POC ABG pO2 (80-105) POC Glucose 139 H 205 H (70-105) Troponin T 0.816 H* (0.00-0.029) ng/mL 10/14/18 10/14/18 10/14/18 Range/Units 01:49 04:52 05:32 POC ABG pCO2 56.0 H (35-45) POC ABG pO2 (80-105) POC Glucose 166 H 164 H (70-105) Troponin T (0.00-0.029) ng/mL
--- NOTE | 2018-10-14 09:30 | Progress Note ---
Assessment and Plan Possible acute/subacute right FT CVA - Initial CT head had no acute finding - Not a candidate for tPA, cont to monitor off aspirin per teleneurology - wait for MRI brain Severe sepsis with shock -Probably secondary to pneumonia -On sepsis protocol -On IV broad-spectrum antibiotics with Vanc and Zosyn -On IV Levophed -Blood and sputum cultures pending Acute respiratory failure with hypoxia and hypercapnia -Probably secondary to acute COPD/asthma exacerbation -Status post intubation on mechanical ventilator -Pulmonology consulted acute thrombus in bilateral lower extremitie - vascular consulted, will wait for recommendation - will not start heparin drip due to acute CVA Hyperglycemia, not in DKA -s/p insulin drip, cont SSI for now with TF Acute toxic/metabolic encephalopathy -Secondary to drug overdose versus sepsis/DKA -Head CT scan negative Seizure -s/p IV lorazepam drip Elevated troponin -Probably secondary to demand ischemia from acute process and underlying CHF -Echocardiogram for further evaluation - Ef 25-30% -Cardiology consulted, recommended medical Mx for now, Acute systolic CHF, Ef 25-30% - monitor ins/os, medical Mx for now, cardiology following ARF -On IV fluid, will cont to monitor creatinine level Hyperkalemia, resolved Abnormal LFT -Probably due to chronic hepatitis C virus infection -Abdominal US to assess for cirrhosis Severe protein calorie malnutrition -Dietitian consulted DVT prophylaxis with heparin and GI prophylaxis with famotidine I spent 45 minutes providing critical care to this seriously ill patient who requires frequent reassessments of his cardiovascular, respiratory and neurologic status. Brief History: Patient is a 58-year-old male who was brought to the ED by EMS on account of altered mental status. It was reported that patient was found unresponsive by friends and family. Patient's last known well time was 10:30 PM on 10/10/18. He was given Narcan by EMS en route to the hospital with minimal response. Patient began to seize as EMS pulled into the hospital. Per report, family told EMS that the patient overdosed and has been using Dilaudid. He was intubated in the ER to protect airway, admitted to ICU for further evalu ation. Subjective Date of service: 10/14/18 Principal diagnosis: Ac hypercapnic hypoxemic Resp failure; Drug OD; AE-COPD; NINOSKA; Seizures Interval history: Patient seen and examined' Noted o/n event, discussed with RN/Pulmonary still intubated, Discussed with Son at bedside Objective - Exam Narrative Exam: General appearance: Present: no acute distress, other (intubated, opens eyes to voice) - EENT Eyes: Present: irregular pupil (sluggish) ENT: other (patient is intubated) - Neck Neck: Present: supple - Respiratory Respiratory effort: normal Respiratory: bilateral: CTA - Cardiovascular Rhythm: regular (with tachycardia) Heart Sounds: Present: S1 & S2 - Extremities Extremity abnormal: b/l LE cyanosis (ischemic changes to plantar surface of right foot with small ulceration on right fourth toe with scab. The right leg is warm down to the foot. The left leg is warm to the mid calf with ischemic changes on both the plantar and dorsal surface of the foot the left femoral pulse is easily palpable and the right femoral pulse is thready but palpable) - Abdominal General gastrointestinal: Present: soft, non-distended, normal bowel sounds Male genitourinary: Present: deferred - Integumentary Integumentary: Present: clear, warm, dry - Musculoskeletal Musculoskeletal: other (unable to assess because patient is intubated and sedated) - Psychiatric Psychiatric: other (unable to assess because patient is intubated and sedated) - Neurologic Neurologic: focal deficits (the patient is not moving his left upper or lower extremities) - Constitutional Vitals: Vital Signs - 12hr 10/13/18 10/13/18 10/13/18 21:30 21:45 22:00 Temperature Pulse Rate 99 H 97 H 102 H Pulse Rate [ Anterior Bilateral Throughout] Pulse Rate [ From Monitor] Respiratory 25 H 22 15 Rate Respiratory Rate [Anterior Bilateral Throughout] Blood Pressure 117/66 117/66 125/70 O2 Sat by Pulse 91 93 92 Oximetry 10/13/18 10/13/18 10/13/18 22:15 22:30 22:45 Temperature Pulse Rate 106 H 100 H 98 H Pulse Rate [ Anterior Bilateral Throughout] Pulse Rate [ From Monitor] Respiratory 14 25 H 18 Rate Respiratory Rate [Anterior Bilateral Throughout] Blood Pressure 125/70 117/66 117/66 O2 Sat by Pulse 97 92 93 Oximetry 10/13/18 10/13/18 10/13/18 23:00 23:15 23:16 Temperature Pulse Rate 102 H 99 H 95 H Pulse Rate [ Anterior Bilateral Throughout] Pulse Rate [ From Monitor] Respiratory 25 H 25 H Rate Respiratory Rate [Anterior Bilateral Throughout] Blood Pressure 113/60 113/60 113/60 O2 Sat by Pulse 90 94 96 Oximetry 10/13/18 10/13/18 10/14/18 23:30 23:33 00:00 Temperature 98.9 F Pulse Rate 95 H 105 H 94 H Pulse Rate [ Anterior Bilateral Throughout] Pulse Rate [ From Monitor] Respiratory 25 H 25 H 25 H Rate Respiratory Rate [Anterior Bilateral Throughout] Blood Pressure 115/62 115/62 110/61 O2 Sat by Pulse 94 94 Oximetry 10/14/18 10/14/18 10/14/18 00:30 01:00 01:30 Temperature Pulse Rate 93 H 93 H 98 H Pulse Rate [ Anterior Bilateral Throughout] Pulse Rate [ From Monitor] Respiratory 25 H 25 H 25 H Rate Respiratory Rate [Anterior Bilateral Throughout] Blood Pressure 117/65 118/62 134/74 O2 Sat by Pulse 97 Oximetry 10/14/18 10/14/18 10/14/18 02:00 02:30 03:00 Temperature Pulse Rate 101 H 96 H 94 H Pulse Rate [ 89 Anterior Bilateral Throughout] Pulse Rate [ From Monitor] Respiratory 22 25 H 25 H Rate Respiratory 24 Rate [Anterior Bilateral Throughout] Blood Pressure 134/74 108/63 105/69 O2 Sat by Pulse 95 92 96 Oximetry 10/14/18 10/14/18 10/14/18 03:30 03:43 04:00 Temperature 98.0 F Pulse Rate 92 H 107 H 91 H Pulse Rate [ Anterior Bilateral Throughout] Pulse Rate [ From Monitor] Respiratory 25 H 25 H Rate Respiratory Rate [Anterior Bilateral Throughout] Blood Pressure 113/64 113/64 107/65 O2 Sat by Pulse 94 106 H 95 Oximetry 10/14/18 10/14/18 10/14/18 04:03 04:31 05:00 Temperature Pulse Rate 110 H 98 H Pulse Rate [ 87 Anterior Bilateral Throughout] Pulse Rate [ From Monitor] Respiratory 15 25 H Rate Respiratory 24 Rate [Anterior Bilateral Throughout] Blood Pressure 163/86 133/73 O2 Sat by Pulse 96 95 Oximetry 10/14/18 10/14/18 10/14/18 05:30 06:00 06:30 Temperature Pulse Rate 96 H 89 88 Pulse Rate [ Anterior Bilateral Throughout] Pulse Rate [ From Monitor] Respiratory 22 25 H 25 H Rate Respiratory Rate [Anterior Bilateral Throughout] Blood Pressure 123/70 110/55 106/59 O2 Sat by Pulse 96 92 92 Oximetry 10/14/18 10/14/18 10/14/18 07:00 07:14 07:18 Temperature Pulse Rate 89 92 H Pulse Rate [ 86 Anterior Bilateral Throughout] Pulse Rate [ From Monitor] Respiratory 25 H Rate Respiratory 25 H Rate [Anterior Bilateral Throughout] Blood Pressure 104/61 104/61 O2 Sat by Pulse 93 97 Oximetry 10/14/18 10/14/18 10/14/18 07:30 07:34 08:00 Temperature 98.8 F Pulse Rate 90 96 H Pulse Rate [ 93 H Anterior Bilateral Throughout] Pulse Rate [ 94 H From Monitor] Respiratory 25 H 25 H Rate Respiratory 25 H Rate [Anterior Bilateral Throughout] Blood Pressure 110/61 125/66 O2 Sat by Pulse 91 94 Oximetry - Labs CBC & Chem 7: 11/08/18 16:32 11/08/18 16:32 Labs: Abnormal lab results 10/13/18 10/13/18 10/13/18 Range/Units 09:46 13:12 13:58 POC ABG pCO2 46.2 H 51.2 H (35-45) POC ABG pO2 52 L (80-105) POC Glucose 235 H (70-105) Troponin T (0.00-0.029) ng/mL 10/13/18 10/13/18 10/13/18 Range/Units 16:15 17:30 21:25 POC ABG pCO2 (35-45) POC ABG pO2 (80-105) POC Glucose 139 H 205 H (70-105) Troponin T 0.816 H* (0.00-0.029) ng/mL 10/14/18 10/14/18 10/14/18 Range/Units 01:49 04:52 05:32 POC ABG pCO2 56.0 H (35-45) POC ABG pO2 (80-105) POC Glucose 166 H 164 H (70-105) Troponin T (0.00-0.029) ng/mL
--- NOTE | 2018-10-14 09:56 | Progress Note ---
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 and as carla see the old infarct from March 2018 Objective - Vital Sign Vital Signs - 12hr 10/13/18 10/13/18 10/13/18 22:00 22:15 22:30 Temperature Pulse Rate 102 H 106 H 100 H Pulse Rate [ Anterior Bilateral Throughout] Pulse Rate [ From Monitor] Respiratory 15 14 25 H Rate Respiratory Rate [Anterior Bilateral Throughout] Blood Pressure 125/70 125/70 117/66 O2 Sat by Pulse 92 97 92 Oximetry 10/13/18 10/13/18 10/13/18 22:45 23:00 23:15 Temperature Pulse Rate 98 H 102 H 99 H Pulse Rate [ Anterior Bilateral Throughout] Pulse Rate [ From Monitor] Respiratory 18 25 H 25 H Rate Respiratory Rate [Anterior Bilateral Throughout] Blood Pressure 117/66 113/60 113/60 O2 Sat by Pulse 93 90 94 Oximetry 10/13/18 10/13/18 10/13/18 23:16 23:30 23:33 Temperature Pulse Rate 95 H 95 H 105 H Pulse Rate [ Anterior Bilateral Throughout] Pulse Rate [ From Monitor] Respiratory 25 H 25 H Rate Respiratory Rate [Anterior Bilateral Throughout] Blood Pressure 113/60 115/62 115/62 O2 Sat by Pulse 96 94 94 Oximetry 10/14/18 10/14/18 10/14/18 00:00 00:30 01:00 Temperature 98.9 F Pulse Rate 94 H 93 H 93 H Pulse Rate [ Anterior Bilateral Throughout] Pulse Rate [ From Monitor] Respiratory 25 H 25 H 25 H Rate Respiratory Rate [Anterior Bilateral Throughout] Blood Pressure 110/61 117/65 118/62 O2 Sat by Pulse Oximetry 10/14/18 10/14/18 10/14/18 01:30 02:00 02:30 Temperature Pulse Rate 98 H 101 H 96 H Pulse Rate [ 89 Anterior Bilateral Throughout] Pulse Rate [ From Monitor] Respiratory 25 H 22 25 H Rate Respiratory 24 Rate [Anterior Bilateral Throughout] Blood Pressure 134/74 134/74 108/63 O2 Sat by Pulse 97 95 92 Oximetry 10/14/18 10/14/18 10/14/18 03:00 03:30 03:43 Temperature Pulse Rate 94 H 92 H 107 H Pulse Rate [ Anterior Bilateral Throughout] Pulse Rate [ From Monitor] Respiratory 25 H 25 H Rate Respiratory Rate [Anterior Bilateral Throughout] Blood Pressure 105/69 113/64 113/64 O2 Sat by Pulse 96 94 106 H Oximetry 10/14/18 10/14/18 10/14/18 04:00 04:03 04:31 Temperature 98.0 F Pulse Rate 91 H 110 H Pulse Rate [ 87 Anterior Bilateral Throughout] Pulse Rate [ From Monitor] Respiratory 25 H 15 Rate Respiratory 24 Rate [Anterior Bilateral Throughout] Blood Pressure 107/65 163/86 O2 Sat by Pulse 95 96 Oximetry 10/14/18 10/14/18 10/14/18 05:00 05:30 06:00 Temperature Pulse Rate 98 H 96 H 89 Pulse Rate [ Anterior Bilateral Throughout] Pulse Rate [ From Monitor] Respiratory 25 H 22 25 H Rate Respiratory Rate [Anterior Bilateral Throughout] Blood Pressure 133/73 123/70 110/55 O2 Sat by Pulse 95 96 92 Oximetry 10/14/18 10/14/18 10/14/18 06:30 07:00 07:14 Temperature Pulse Rate 88 89 92 H Pulse Rate [ Anterior Bilateral Throughout] Pulse Rate [ From Monitor] Respiratory 25 H 25 H Rate Respiratory Rate [Anterior Bilateral Throughout] Blood Pressure 106/59 104/61 104/61 O2 Sat by Pulse 92 93 97 Oximetry 10/14/18 10/14/18 10/14/18 07:18 07:30 07:34 Temperature Pulse Rate 90 Pulse Rate [ 86 93 H Anterior Bilateral Throughout] Pulse Rate [ From Monitor] Respiratory 25 H Rate Respiratory 25 H 25 H Rate [Anterior Bilateral Throughout] Blood Pressure 110/61 O2 Sat by Pulse 91 Oximetry 10/14/18 10/14/18 10/14/18 08:00 08:31 09:00 Temperature 98.8 F Pulse Rate 96 H 111 H 110 H Pulse Rate [ Anterior Bilateral Throughout] Pulse Rate [ 94 H From Monitor] Respiratory 25 H 13 17 Rate Respiratory Rate [Anterior Bilateral Throughout] Blood Pressure 125/66 137/77 155/66 O2 Sat by Pulse 94 95 95 Oximetry 10/14/18 09:30 Temperature Pulse Rate 95 H Pulse Rate [ Anterior Bilateral Throughout] Pulse Rate [ From Monitor] Respiratory 25 H Rate Respiratory Rate [Anterior Bilateral Throughout] Blood Pressure 99/56 O2 Sat by Pulse 89 Oximetry - Laboratory Findings CBC and BMP: 10/13/18 05:40 10/13/18 05:40 Abnormal Lab Findings: Abnormal Labs 10/11/18 10/11/18 10/11/18 00:16 00:16 00:16 WBC 20.1 H Hgb Hct MCV 98 H RDW 15.4 H [place] % (Auto) [place] # Seg Neutrophils % Seg Neuts % (Manual) Lymphocytes % (Manual) 5.0 L Monocytes % (Manual) 25.0 H Seg Neutrophils # Seg Neutrophils # Man 9.2 H Lymphocytes # (Manual) 1.0 L Monocytes # (Manual) 5.0 H APTT POC ABG pH POC ABG pCO2 POC ABG pO2 Sodium Potassium 5.8 H Chloride Carbon Dioxide 17 L BUN Creatinine 2.2 H Glucose 348 H POC Glucose Lactic Acid 13.70 H* Calcium 7.7 L Phosphorus Total Bilirubin 1.50 H AST 179 H ALT 110 H Total Creatine Kinase 324 H CK-MB (CK-2) Troponin T 0.257 H* Total Protein 5.9 L Albumin 2.9 L HDL Cholesterol 19 L Salicylates Acetaminophen 10/11/18 10/11/18 10/11/18 00:16 00:16 01:21 WBC Hgb Hct MCV RDW [place] % (Auto) [place] # Seg Neutrophils % Seg Neuts % (Manual) Lymphocytes % (Manual) Monocytes % (Manual) Seg Neutrophils # Seg Neutrophils # Man Lymphocytes # (Manual) Monocytes # (Manual) APTT POC ABG pH 7.110 L POC ABG pCO2 50.3 H POC ABG pO2 65 L Sodium Potassium Chloride Carbon Dioxide BUN Creatinine Glucose POC Glucose Lactic Acid Calcium Phosphorus Total Bilirubin AST ALT Total Creatine Kinase CK-MB (CK-2) Troponin T Total Protein Albumin HDL Cholesterol Salicylates < 0.3 L Acetaminophen < 5.0 L 10/11/18 10/11/18 10/11/18 01:22 03:27 04:14 WBC Hgb Hct MCV RDW [place] % (Auto) [place] # Seg Neutrophils % Seg Neuts % (Manual) Lymphocytes % (Manual) Monocytes % (Manual) Seg Neutrophils # Seg Neutrophils # Man Lymphocytes # (Manual) Monocytes # (Manual) APTT POC ABG pH POC ABG pCO2 POC ABG pO2 Sodium Potassium Chloride Carbon Dioxide BUN Creatinine Glucose POC Glucose Lactic Acid 8.50 H* 4.10 H* Calcium Phosphorus 4.90 H Total Bilirubin AST ALT Total Creatine Kinase CK-MB (CK-2) Troponin T Total Protein Albumin HDL Cholesterol Salicylates Acetaminophen 10/11/18 10/11/18 10/11/18 04:14 04:14 04:14 WBC Hgb Hct MCV RDW [place] % (Auto) [place] # Seg Neutrophils % Seg Neuts % (Manual) Lymphocytes % (Manual) Monocytes % (Manual) Seg Neutrophils # Seg Neutrophils # Man Lymphocytes # (Manual) Monocytes # (Manual) APTT POC ABG pH POC ABG pCO2 POC ABG pO2 Sodium Potassium 5.6 H Chloride Carbon Dioxide 19 L BUN Creatinine 1.6 H Glucose 329 H POC Glucose 328 H Lactic Acid Calcium 7.3 L Phosphorus Total Bilirubin AST ALT Total Creatine Kinase CK-MB (CK-2) Troponin T 1.130 H* D Total Protein Albumin HDL Cholesterol Salicylates Acetaminophen 10/11/18 10/11/18 10/11/18 05:10 05:32 05:58 WBC Hgb Hct MCV RDW [place] % (Auto) [place] # Seg Neutrophils % Seg Neuts % (Manual) Lymphocytes % (Manual) Monocytes % (Manual) Seg Neutrophils # Seg Neutrophils # Man Lymphocytes # (Manual) Monocytes # (Manual) APTT POC ABG pH 7.259 L POC ABG pCO2 45.6 H POC ABG pO2 Sodium Potassium Chloride 108.6 H Carbon Dioxide 20 L BUN Creatinine 1.8 H Glucose 269 H POC Glucose 273 H Lactic Acid Calcium 7.0 L Phosphorus Total Bilirubin AST ALT Total Creatine Kinase CK-MB (CK-2) Troponin T Total Protein Albumin HDL Cholesterol Salicylates Acetaminophen 10/11/18 10/11/18 10/11/18 05:58 06:39 07:00 WBC Hgb Hct MCV RDW [place] % (Auto) [place] # Seg Neutrophils % Seg Neuts % (Manual) Lymphocytes % (Manual) Monocytes % (Manual) Seg Neutrophils # Seg Neutrophils # Man Lymphocytes # (Manual) Monocytes # (Manual) APTT POC ABG pH POC ABG pCO2 POC ABG pO2 Sodium Potassium Chloride Carbon Dioxide BUN Creatinine Glucose POC Glucose 247 H Lactic Acid 3.20 H* 3.30 H* Calcium Phosphorus Total Bilirubin AST ALT Total Creatine Kinase CK-MB (CK-2) Troponin T Total Protein Albumin HDL Cholesterol Salicylates Acetaminophen 10/11/18 10/11/18 10/11/18 07:00 07:30 07:36 WBC Hgb Hct MCV RDW [place] % (Auto) [place] # Seg Neutrophils % Seg Neuts % (Manual) Lymphocytes % (Manual) Monocytes % (Manual) Seg Neutrophils # Seg Neutrophils # Man Lymphocytes # (Manual) Monocytes # (Manual) APTT POC ABG pH POC ABG pCO2 POC ABG pO2 Sodium 146 H Potassium Chloride 112.1 H Carbon Dioxide 21 L BUN Creatinine 1.6 H Glucose 218 H POC Glucose Lactic Acid 3.20 H* Calcium 7.0 L Phosphorus Total Bilirubin AST ALT Total Creatine Kinase CK-MB (CK-2) Troponin T 1.020 H* Total Protein Albumin HDL Cholesterol Salicylates Acetaminophen 10/11/18 10/11/18 10/11/18 07:43 08:29 08:29 WBC Hgb 16.2 H Hct 49.9 H D MCV RDW [place] % (Auto) [place] # Seg Neutrophils % Seg Neuts % (Manual) Lymphocytes % (Manual) Monocytes % (Manual) Seg Neutrophils # Seg Neutrophils # Man Lymphocytes # (Manual) Monocytes # (Manual) APTT POC ABG pH POC ABG pCO2 POC ABG pO2 Sodium Potassium Chloride Carbon Dioxide BUN Creatinine Glucose POC Glucose 174 H Lactic Acid 3.90 H* Calcium Phosphorus Total Bilirubin AST ALT Total Creatine Kinase CK-MB (CK-2) Troponin T Total Protein Albumin HDL Cholesterol Salicylates Acetaminophen 10/11/18 10/11/18 10/11/18 08:29 08:42 11:05 WBC Hgb Hct MCV RDW [place] % (Auto) [place] # Seg Neutrophils % Seg Neuts % (Manual) Lymphocytes % (Manual) Monocytes % (Manual) Seg Neutrophils # Seg Neutrophils # Man Lymphocytes # (Manual) Monocytes # (Manual) APTT 24.1 L POC ABG pH POC ABG pCO2 POC ABG pO2 Sodium 147 H Potassium Chloride 113.3 H Carbon Dioxide 21 L BUN Creatinine 1.7 H Glucose 119 H POC Glucose 164 H Lactic Acid Calcium 7.7 L Phosphorus Total Bilirubin AST ALT Total Creatine Kinase CK-MB (CK-2) Troponin T Total Protein Albumin HDL Cholesterol Salicylates Acetaminophen 10/11/18 10/11/18 10/11/18 11:05 11:06 12:30 WBC Hgb Hct MCV RDW [place] % (Auto) [place] # Seg Neutrophils % Seg Neuts % (Manual) Lymphocytes % (Manual) Monocytes % (Manual) Seg Neutrophils # Seg Neutrophils # Man Lymphocytes # (Manual) Monocytes # (Manual) APTT POC ABG pH POC ABG pCO2 POC ABG pO2 Sodium 148 H Potassium Chloride 113.4 H Carbon Dioxide 21 L BUN Creatinine 1.6 H Glucose 119 H POC Glucose 116 H Lactic Acid 3.20 H* Calcium 7.5 L Phosphorus Total Bilirubin AST ALT Total Creatine Kinase CK-MB (CK-2) Troponin T Total Protein Albumin HDL Cholesterol Salicylates Acetaminophen 10/11/18 10/11/18 10/11/18 12:30 13:16 13:25 WBC Hgb Hct MCV RDW [place] % (Auto) [place] # Seg Neutrophils % Seg Neuts % (Manual) Lymphocytes % (Manual) Monocytes % (Manual) Seg Neutrophils # Seg Neutrophils # Man Lymphocytes # (Manual) Monocytes # (Manual) APTT POC ABG pH 7.247 L POC ABG pCO2 48.4 H POC ABG pO2 Sodium Potassium Chloride Carbon Dioxide BUN Creatinine Glucose POC Glucose 112 H Lactic Acid 2.70 H* Calcium Phosphorus Total Bilirubin AST ALT Total Creatine Kinase CK-MB (CK-2) Troponin T Total Protein Albumin HDL Cholesterol Salicylates Acetaminophen 10/11/18 10/11/18 10/11/18 14:41 15:27 16:13 WBC Hgb Hct MCV RDW [place] % (Auto) [place] # Seg Neutrophils % Seg Neuts % (Manual) Lymphocytes % (Manual) Monocytes % (Manual) Seg Neutrophils # Seg Neutrophils # Man Lymphocytes # (Manual) Monocytes # (Manual) APTT POC ABG pH POC ABG pCO2 POC ABG pO2 Sodium Potassium Chloride Carbon Dioxide BUN Creatinine Glucose POC Glucose 127 H 141 H 134 H Lactic Acid Calcium Phosphorus Total Bilirubin AST ALT Total Creatine Kinase CK-MB (CK-2) Troponin T Total Protein Albumin HDL Cholesterol Salicylates Acetaminophen 10/11/18 10/11/18 10/11/18 17:18 18:23 19:38 WBC Hgb Hct MCV RDW [place] % (Auto) [place] # Seg Neutrophils % Seg Neuts % (Manual) Lymphocytes % (Manual) Monocytes % (Manual) Seg Neutrophils # Seg Neutrophils # Man Lymphocytes # (Manual) Monocytes # (Manual) APTT POC ABG pH POC ABG pCO2 POC ABG pO2 Sodium 148 H Potassium Chloride 112.7 H Carbon Dioxide BUN 23 H Creatinine Glucose 143 H POC Glucose 132 H 129 H Lactic Acid Calcium 7.9 L Phosphorus Total Bilirubin AST ALT Total Creatine Kinase CK-MB (CK-2) Troponin T Total Protein Albumin HDL Cholesterol Salicylates Acetaminophen 10/11/18 10/11/18 10/11/18 20:19 20:36 21:01 WBC Hgb Hct MCV RDW [place] % (Auto) [place] # Seg Neutrophils % Seg Neuts % (Manual) Lymphocytes % (Manual) Monocytes % (Manual) Seg Neutrophils # Seg Neutrophils # Man Lymphocytes # (Manual) Monocytes # (Manual) APTT POC ABG pH 7.281 L POC ABG pCO2 POC ABG pO2 Sodium Potassium Chloride Carbon Dioxide BUN Creatinine Glucose POC Glucose 129 H 151 H Lactic Acid Calcium Phosphorus Total Bilirubin AST ALT Total Creatine Kinase CK-MB (CK-2) Troponin T Total Protein Albumin HDL Cholesterol Salicylates Acetaminophen 10/11/18 10/11/18 10/12/18 22:04 23:15 01:18 WBC Hgb Hct MCV RDW [place] % (Auto) [place] # Seg Neutrophils % Seg Neuts % (Manual) Lymphocytes % (Manual) Monocytes % (Manual) Seg Neutrophils # Seg Neutrophils # Man Lymphocytes # (Manual) Monocytes # (Manual) APTT POC ABG pH POC ABG pCO2 POC ABG pO2 Sodium Potassium Chloride Carbon Dioxide BUN Creatinine Glucose POC Glucose 147 H 143 H 158 H Lactic Acid Calcium Phosphorus Total Bilirubin AST ALT Total Creatine Kinase CK-MB (CK-2) Troponin T Total Protein Albumin HDL Cholesterol Salicylates Acetaminophen 10/12/18 10/12/18 10/12/18 02:13 03:18 04:04 WBC Hgb Hct MCV RDW [place] % (Auto) [place] # Seg Neutrophils % Seg Neuts % (Manual) Lymphocytes % (Manual) Monocytes % (Manual) Seg Neutrophils # Seg Neutrophils # Man Lymphocytes # (Manual) Monocytes # (Manual) APTT POC ABG pH POC ABG pCO2 POC ABG pO2 Sodium 147 H Potassium Chloride 111.1 H Carbon Dioxide BUN 30 H Creatinine 2.0 H Glucose 154 H POC Glucose 148 H 142 H Lactic Acid Calcium 8.1 L Phosphorus Total Bilirubin AST 269 H ALT 204 H Total Creatine Kinase 3647 H CK-MB (CK-2) 48.3 H Troponin T 2.230 H* D Total Protein 5.8 L Albumin 2.6 L HDL Cholesterol Salicylates Acetaminophen 10/12/18 10/12/18 10/12/18 04:04 04:08 04:19 WBC 24.4 H Hgb Hct MCV RDW [place] % (Auto) [place] # Seg Neutrophils % Seg Neuts % (Manual) 32.0 L Lymphocytes % (Manual) Monocytes % (Manual) 8.0 H Seg Neutrophils # Seg Neutrophils # Man 7.8 H Lymphocytes # (Manual) Monocytes # (Manual) 2.0 H APTT POC ABG pH 7.317 L POC ABG pCO2 49.3 H POC ABG pO2 Sodium Potassium Chloride Carbon Dioxide BUN Creatinine Glucose POC Glucose 143 H Lactic Acid Calcium Phosphorus Total Bilirubin AST ALT Total Creatine Kinase CK-MB (CK-2) Troponin T Total Protein Albumin HDL Cholesterol Salicylates Acetaminophen 10/12/18 10/12/18 10/12/18 05:29 06:52 08:09 WBC Hgb Hct MCV RDW [place] % (Auto) [place] # Seg Neutrophils % Seg Neuts % (Manual) Lymphocytes % (Manual) Monocytes % (Manual) Seg Neutrophils # Seg Neutrophils # Man Lymphocytes # (Manual) Monocytes # (Manual) APTT POC ABG pH 7.322 L POC ABG pCO2 46.5 H POC ABG pO2 Sodium Potassium Chloride Carbon Dioxide BUN Creatinine Glucose POC Glucose 196 H 226 H Lactic Acid Calcium Phosphorus Total Bilirubin AST ALT Total Creatine Kinase CK-MB (CK-2) Troponin T Total Protein Albumin HDL Cholesterol Salicylates Acetaminophen 10/12/18 10/12/18 10/12/18 08:38 10:03 15:50 WBC Hgb Hct MCV RDW [place] % (Auto) [place] # Seg Neutrophils % Seg Neuts % (Manual) Lymphocytes % (Manual) Monocytes % (Manual) Seg Neutrophils # Seg Neutrophils # Man Lymphocytes # (Manual) Monocytes # (Manual) APTT POC ABG pH POC ABG pCO2 POC ABG pO2 Sodium Potassium Chloride Carbon Dioxide BUN Creatinine Glucose POC Glucose 138 H 148 H 221 H Lactic Acid Calcium Phosphorus Total Bilirubin AST ALT Total Creatine Kinase CK-MB (CK-2) Troponin T Total Protein Albumin HDL Cholesterol Salicylates Acetaminophen 10/12/18 10/12/18 10/12/18 18:39 20:56 21:34 WBC Hgb Hct MCV RDW [place] % (Auto) [place] # Seg Neutrophils % Seg Neuts % (Manual) Lymphocytes % (Manual) Monocytes % (Manual) Seg Neutrophils # Seg Neutrophils # Man Lymphocytes # (Manual) Monocytes # (Manual) APTT POC ABG pH 7.336 L POC ABG pCO2 46.0 H POC ABG pO2 Sodium Potassium Chloride Carbon Dioxide BUN Creatinine Glucose POC Glucose 255 H 260 H Lactic Acid Calcium Phosphorus Total Bilirubin AST ALT Total Creatine Kinase CK-MB (CK-2) Troponin T Total Protein Albumin HDL Cholesterol Salicylates Acetaminophen 10/13/18 10/13/18 10/13/18 02:29 05:09 05:40 WBC 17.0 H Hgb Hct MCV RDW [place] % (Auto) 9.2 H [place] # 1.6 H Seg Neutrophils % 76.2 H Seg Neuts % (Manual) Lymphocytes % (Manual) Monocytes % (Manual) Seg Neutrophils # 12.9 H Seg Neutrophils # Man Lymphocytes # (Manual) Monocytes # (Manual) APTT POC ABG pH POC ABG pCO2 POC ABG pO2 Sodium Potassium Chloride Carbon Dioxide BUN Creatinine Glucose POC Glucose 216 H 249 H Lactic Acid Calcium Phosphorus Total Bilirubin AST ALT Total Creatine Kinase CK-MB (CK-2) Troponin T Total Protein Albumin HDL Cholesterol Salicylates Acetaminophen 10/13/18 10/13/18 10/13/18 05:40 05:40 09:46 WBC Hgb Hct MCV RDW [place] % (Auto) [place] # Seg Neutrophils % Seg Neuts % (Manual) Lymphocytes % (Manual) Monocytes % (Manual) Seg Neutrophils # Seg Neutrophils # Man Lymphocytes # (Manual) Monocytes # (Manual) APTT POC ABG pH POC ABG pCO2 POC ABG pO2 Sodium 146 H Potassium Chloride 109.8 H Carbon Dioxide BUN 35 H Creatinine Glucose 245 H POC Glucose 235 H Lactic Acid Calcium 7.9 L Phosphorus Total Bilirubin AST ALT Total Creatine Kinase CK-MB (CK-2) Troponin T 0.952 H* D Total Protein Albumin HDL Cholesterol Salicylates Acetaminophen 10/13/18 10/13/18 10/13/18 13:12 13:58 16:15 WBC Hgb Hct MCV RDW [place] % (Auto) [place] # Seg Neutrophils % Seg Neuts % (Manual) Lymphocytes % (Manual) Monocytes % (Manual) Seg Neutrophils # Seg Neutrophils # Man Lymphocytes # (Manual) Monocytes # (Manual) APTT POC ABG pH POC ABG pCO2 46.2 H 51.2 H POC ABG pO2 52 L Sodium Potassium Chloride Carbon Dioxide BUN Creatinine Glucose POC Glucose Lactic Acid Calcium Phosphorus Total Bilirubin AST ALT Total Creatine Kinase CK-MB (CK-2) Troponin T 0.816 H* Total Protein Albumin HDL Cholesterol Salicylates Acetaminophen 10/13/18 10/13/18 10/14/18 17:30 21:25 01:49 WBC Hgb Hct MCV RDW [place] % (Auto) [place] # Seg Neutrophils % Seg Neuts % (Manual) Lymphocytes % (Manual) Monocytes % (Manual) Seg Neutrophils # Seg Neutrophils # Man Lymphocytes # (Manual) Monocytes # (Manual) APTT POC ABG pH POC ABG pCO2 POC ABG pO2 Sodium Potassium Chloride Carbon Dioxide BUN Creatinine Glucose POC Glucose 139 H 205 H 166 H Lactic Acid Calcium Phosphorus Total Bilirubin AST ALT Total Creatine Kinase CK-MB (CK-2) Troponin T Total Protein Albumin HDL Cholesterol Salicylates Acetaminophen 10/14/18 10/14/18 04:52 05:32 WBC Hgb Hct MCV RDW [place] % (Auto) [place] # Seg Neutrophils % Seg Neuts % (Manual) Lymphocytes % (Manual) Monocytes % (Manual) Seg Neutrophils # Seg Neutrophils # Man Lymphocytes # (Manual) Monocytes # (Manual) APTT POC ABG pH POC ABG pCO2 56.0 H POC ABG pO2 Sodium Potassium Chloride Carbon Dioxide BUN Creatinine Glucose POC Glucose 164 H Lactic Acid Calcium Phosphorus Total Bilirubin AST ALT Total Creatine Kinase CK-MB (CK-2) Troponin T Total Protein Albumin HDL Cholesterol Salicylates Acetaminophen
[2018-10-14 10:00] LABS: Hematocrit 34.5 % (35.5-45.6); Hemoglobin 11.4 gm/dl (11.8-15.2); Mean Corpuscular HGB Conc 33 % (32-34); Mean Corpuscular Volume 92 fl (84-94); Platelet Count 139 K/mm3 (140-440); Red Blood Count 3.73 M/mm3 (3.65-5.03); Red Cell Distribution Width 14.2 % (13.2-15.2)
[2018-10-14 10:19] LABS: Alanine Aminotransferase 91 units/L (7-56); BUN/Creatinine Ratio 26; Blood Urea Nitrogen 18 mg/dL (9-20); Calcium 7.3 mg/dL (8.4-10.2); Hemolysis Index 3
[2018-10-14] MEDS: SODIUM CHLORIDE FLUSH SYRINGE 10 ML IV SCH ×2 (11:03→22:01)
[2018-10-14] MEDS: PEPCID IV SCH ×2 (11:03→22:00)
[2018-10-14] MEDS: ASPIRIN PO SCH (11:04)
--- NOTE | 2018-10-14 11:47 | Progress Note ---
Assessment and Plan There has been no significant change in the patient's status. The patient's left leg ischemia is beginning to declare itself however there is nothing that is forcing us to proceed with amputation such as infection or any indication of significant pain. If either of those should change then we will proceed to the operating room for urgent amputation however until that time we will continue to follow the patient and continue supportive care. Subjective Date of service: 10/14/18 Principal diagnosis: Ac hypercapnic hypoxemic Resp failure; Drug OD; AE-COPD; NINOSKA; Seizures Interval history: Patient remains on the ventilator. No significant events overnight. Objective - Constitutional Vitals: Vital Signs - 12hr 10/14/18 10/14/18 10/14/18 00:00 00:30 01:00 Temperature 98.9 F Pulse Rate 94 H 93 H 93 H Pulse Rate [ Anterior Bilateral Throughout] Pulse Rate [ From Monitor] Respiratory 25 H 25 H 25 H Rate Respiratory Rate [Anterior Bilateral Throughout] Blood Pressure 110/61 117/65 118/62 O2 Sat by Pulse Oximetry 10/14/18 10/14/18 10/14/18 01:30 02:00 02:30 Temperature Pulse Rate 98 H 101 H 96 H Pulse Rate [ 89 Anterior Bilateral Throughout] Pulse Rate [ From Monitor] Respiratory 25 H 22 25 H Rate Respiratory 24 Rate [Anterior Bilateral Throughout] Blood Pressure 134/74 134/74 108/63 O2 Sat by Pulse 97 95 92 Oximetry 10/14/18 10/14/18 10/14/18 03:00 03:30 03:43 Temperature Pulse Rate 94 H 92 H 107 H Pulse Rate [ Anterior Bilateral Throughout] Pulse Rate [ From Monitor] Respiratory 25 H 25 H Rate Respiratory Rate [Anterior Bilateral Throughout] Blood Pressure 105/69 113/64 113/64 O2 Sat by Pulse 96 94 106 H Oximetry 10/14/18 10/14/18 10/14/18 04:00 04:03 04:31 Temperature 98.0 F Pulse Rate 91 H 110 H Pulse Rate [ 87 Anterior Bilateral Throughout] Pulse Rate [ From Monitor] Respiratory 25 H 15 Rate Respiratory 24 Rate [Anterior Bilateral Throughout] Blood Pressure 107/65 163/86 O2 Sat by Pulse 95 96 Oximetry 10/14/18 10/14/18 10/14/18 05:00 05:30 06:00 Temperature Pulse Rate 98 H 96 H 89 Pulse Rate [ Anterior Bilateral Throughout] Pulse Rate [ From Monitor] Respiratory 25 H 22 25 H Rate Respiratory Rate [Anterior Bilateral Throughout] Blood Pressure 133/73 123/70 110/55 O2 Sat by Pulse 95 96 92 Oximetry 10/14/18 10/14/18 10/14/18 06:30 07:00 07:14 Temperature Pulse Rate 88 89 92 H Pulse Rate [ Anterior Bilateral Throughout] Pulse Rate [ From Monitor] Respiratory 25 H 25 H Rate Respiratory Rate [Anterior Bilateral Throughout] Blood Pressure 106/59 104/61 104/61 O2 Sat by Pulse 92 93 97 Oximetry 10/14/18 10/14/18 10/14/18 07:18 07:30 07:34 Temperature Pulse Rate 90 Pulse Rate [ 86 93 H Anterior Bilateral Throughout] Pulse Rate [ From Monitor] Respiratory 25 H Rate Respiratory 25 H 25 H Rate [Anterior Bilateral Throughout] Blood Pressure 110/61 O2 Sat by Pulse 91 Oximetry 10/14/18 10/14/18 10/14/18 08:00 08:31 09:00 Temperature 98.8 F Pulse Rate 96 H 111 H 110 H Pulse Rate [ Anterior Bilateral Throughout] Pulse Rate [ 94 H From Monitor] Respiratory 25 H 13 17 Rate Respiratory Rate [Anterior Bilateral Throughout] Blood Pressure 125/66 137/77 155/66 O2 Sat by Pulse 94 95 95 Oximetry 10/14/18 10/14/18 09:30 10:00 Temperature Pulse Rate 95 H 95 H Pulse Rate [ Anterior Bilateral Throughout] Pulse Rate [ From Monitor] Respiratory 25 H 25 H Rate Respiratory Rate [Anterior Bilateral Throughout] Blood Pressure 99/56 116/62 O2 Sat by Pulse 89 90 Oximetry General appearance: Present: other (patient remains on the ventilator and opens his eyes to command) - Respiratory Respiratory effort: other (ventilator dependent) Extremities: pulses intact (bilateral femoral) Extremity abnormal: other (patient has mottling of the left leg to just proximal to the ankle, the calf remains warm. Mottling on the right is at the plantar surface and involving the distal toes the remainder of the leg and foot remained warm.) - Gastrointestinal General gastrointestinal: Present: soft - Genitourinary Male genitourinary: deferred - Neurologic Neurologic: other (patient moves his right side however there is no movement of the left) - Labs CBC & Chem 7: 10/14/18 09:45 10/14/18 09:45 Labs: Abnormal lab results 0510/13/18 10/13/18 Range/Units 13:12 13:58 16:15 Hgb (11.8-15.2) gm/dl Hct (35.5-45.6) % Plt Count (140-440) K/mm3 POC ABG pCO2 46.2 H 51.2 H (35-45) POC ABG pO2 52 L (80-105) Sodium (137-145) mmol/L Chloride (98-107) mmol/L Carbon Dioxide (22-30) mmol/L Creatinine (0.8-1.5) mg/dL Glucose (75-100) mg/dL POC Glucose (70-105) Calcium (8.4-10.2) mg/dL AST (5-40) units/L ALT (7-56) units/L Troponin T 0.816 H* (0.00-0.029) ng/mL Total Protein (6.3-8.2) g/dL Albumin (3.9-5) g/dL 10/13/18 10/13/18 10/14/18 Range/Units 17:30 21:25 01:49 Hgb (11.8-15.2) gm/dl Hct (35.5-45.6) % Plt Count (140-440) K/mm3 POC ABG pCO2 (35-45) POC ABG pO2 (80-105) Sodium (137-145) mmol/L Chloride (98-107) mmol/L Carbon Dioxide (22-30) mmol/L Creatinine (0.8-1.5) mg/dL Glucose (75-100) mg/dL POC Glucose 139 H 205 H 166 H (70-105) Calcium (8.4-10.2) mg/dL AST (5-40) units/L ALT (7-56) units/L Troponin T (0.00-0.029) ng/mL Total Protein (6.3-8.2) g/dL Albumin (3.9-5) g/dL 10/14/18 10/14/18 10/14/18 Range/Units 04:52 05:32 09:45 Hgb 11.4 L (11.8-15.2) gm/dl Hct 34.5 L (35.5-45.6) % Plt Count 139 L (140-440) K/mm3 POC ABG pCO2 56.0 H (35-45) POC ABG pO2 (80-105) Sodium (137-145) mmol/L Chloride (98-107) mmol/L Carbon Dioxide (22-30) mmol/L Creatinine (0.8-1.5) mg/dL Glucose (75-100) mg/dL POC Glucose 164 H (70-105) Calcium (8.4-10.2) mg/dL AST (5-40) units/L ALT (7-56) units/L Troponin T (0.00-0.029) ng/mL Total Protein (6.3-8.2) g/dL Albumin (3.9-5) g/dL 10/14/18 10/14/18 Range/Units 09:45 10:54 Hgb (11.8-15.2) gm/dl Hct (35.5-45.6) % Plt Count (140-440) K/mm3 POC ABG pCO2 (35-45) POC ABG pO2 (80-105) Sodium 148 H (137-145) mmol/L Chloride 107.3 H (98-107) mmol/L Carbon Dioxide 34 H D (22-30) mmol/L Creatinine 0.7 L D (0.8-1.5) mg/dL Glucose 191 H (75-100) mg/dL POC Glucose 173 H (70-105) Calcium 7.3 L (8.4-10.2) mg/dL AST 110 H (5-40) units/L ALT 91 H (7-56) units/L Troponin T (0.00-0.029) ng/mL Total Protein 4.9 L (6.3-8.2) g/dL Albumin 2.0 L (3.9-5) g/dL Medications & Allergies - Medications Allergies/Adverse Reactions: Allergies No Known Allergies Allergy (Verified 10/31/14 11:20) Home Medications: Home Medications Medication Instructions Recorded Confirmed Last Taken Type Gabapentin [Neurontin] 90 mg PO Q8HR 04/22/15 04/22/15 04/21/15 History ALPRAZolam [Xanax TAB] 1 mg PO TID PRN #30 tablet 03/28/16 Unknown Rx Albuterol Sulfate [Ventolin HFA] 2 puff IH Q4H PRN #1 [id number] 03/28/16 Unknown Rx Ciprofloxacin HCl [Ciprofloxacin 500 mg PO Q12HR #30 tab 03/28/16 Unknown Rx TAB] Citalopram [celeXA] 10 mg PO QDAY #30 tablet 03/28/16 Unknown Rx Nicotine [Habitrol] 14 mg TD QDAY #30 patch 03/28/16 Unknown Rx Sitagliptin Phos/Metformin HCl 1 tab PO QDAY #30 tbmp.24hr 03/28/16 Unknown Rx [Janumet XR 100-1,000 mg] oxyCODONE /ACETAMINOPHEN [Percocet 1 tab PO Q6H PRN #60 tablet 03/28/16 Unknown Rx 5/325 mg] Active Medications: Generic Name Dose Route Start Last Admin Trade Name Freq PRN Reason Stop Dose Admin Acetaminophen 650 mg 10/11/18 04:04 10/11/18 13:40 Tylenol PO 650 mg Q4H PRN Administration Pain MILD(1-3)/Fever >100.5/HOLLINS Acetaminophen 650 mg 10/12/18 01:26 Tylenol OR Q4H PRN Pain, Mild(1-3)/Fever>100.5/HOLLINS Albuterol/Ipratropium 1 ampul 10/11/18 14:00 10/14/18 07:17 Duoneb *Not For Prn Use* IH 1 ampul Q6HRT ISAAC Administration Lipase/Protease/Amylase 1 each 10/11/18 14:12 Pancreaze 10,500 Unit FEEDTUBE PRN PRN For Clogged Feeding Tube Aspirin 325 mg 10/13/18 10:00 10/14/18 11:04 Aspirin PO 325 mg QDAY ISAAC Administration Dextrose 0 ml 10/11/18 03:57 10/11/18 10:18 D50w (25gm) Syringe IV 10 ml PRN PRN Administration Hypoglycemia Famotidine 10 mg 10/11/18 10:00 10/14/18 11:03 Pepcid IV 10 mg BID ISAAC Administration Fentanyl 50 mcg 10/11/18 13:00 10/13/18 02:27 Sublimaze IV 50 mcg Q10MIN PRN Administration ANALGESIA Heparin Sodium (Porcine) 5,000 unit 10/11/18 14:00 10/14/18 05:18 Heparin SUB-Q 5,000 unit Q8HR ISAAC Administration Hydrophilic Ointment 1 applic 10/11/18 14:00 Vaseline Lip Therapy TP Q2HR PRN Dry Lips Norepinephrine 4 mg in 250 mls @ 7.5 mls/hr 10/11/18 04:00 10/11/18 22:00 Levophed Drip 4 Mg/Ns 250 Ml IV 0 mcg/min TITR ISAAC 0 mls/hr Titration Protocol 2 MCG/MIN Sodium Chloride 1,000 mls @ 250 mls/hr 10/11/18 05:00 Nacl 0.9% 1000 Ml IV DIRECT ISAAC Sodium Chloride 1,000 mls @ 125 mls/hr 10/11/18 15:00 Nacl 0.45% 1000 Ml IV DIRECT ISAAC Sodium Chloride 1,000 mls @ 75 mls/hr 10/12/18 06:00 10/12/18 19:12 Nacl 0.9% 1000 Ml IV 0 mls/hr DIRECT ISAAC Infusion Ampicillin Sodium/Sulbactam Sodium 3 gm in 100 mls @ 200 mls/hr 10/13/18 14:00 10/14/18 11:03 Unasyn/Ns 3 Gm/100 Ml IV 200 mls/hr Q6HR ISAAC Administration Protocol Insulin Human Regular 0 units 10/12/18 14:00 10/14/18 11:04 Humulin R SUB-Q 3 units Q4HR ISAAC Administration Protocol Morphine Sulfate 2 mg 10/14/18 11:29 Morphine IV Q4H PRN severe pain 7-10 Multi-Ingred Cream/Lotion/Oil/Oint 1 applic 10/11/18 14:00 Artificial Tears Ophth Oint OU Q4HR PRN Dry Eye(s) Ondansetron HCl 4 mg 10/11/18 04:04 Zofran IV Q8H PRN Nausea And Vomiting Quetiapine Fumarate 200 mg 10/14/18 22:00 Seroquel PO QHS ISAAC Simple Syrup 15 ml 10/11/18 14:12 Simple Syrup FEEDTUBE PRN PRN Hypoglycemia Simple Syrup 30 ml 10/11/18 14:12 Simple Syrup FEEDTUBE PRN PRN Hypoglycemia Sodium Bicarbonate 325 mg 10/11/18 14:12 Sodium Bicarbonate FEEDTUBE PRN PRN For Clogged Feeding Tube Sodium Chloride 10 ml 10/11/18 10:00 10/14/18 11:03 Sodium Chloride Flush Syringe 10 Ml IV 10 ml BID ISAAC Administration Sodium Chloride 10 ml 10/11/18 04:04 Sodium Chloride Flush Syringe 10 Ml IV PRN PRN LINE FLUSH Sodium Chloride 10 ml 10/13/18 03:37 Sodium Chloride Flush Syringe 10 Ml IV PRN PRN LINE FLUSH
[2018-10-14] MEDS: MORPHINE IV PRN ×2 (13:00→14:59)
--- NOTE | 2018-10-14 13:00 | Progress Note ---
Assessment and Plan Patient with multiple following medical issues. Notes from a vascular and pulmonary are noted Patient is now in sinus rhythm. Neurology evaluation is noted. Leukocytosis improved. Patient has no significant cardiac murmur and there is no evidence of peripheral lesions to suggest endocarditis. Blood cultures so far have been negative. Echocardiogram shows no significant valvular lesions. Overall prognosis remains guarded. We will continue monitoring. Discussed with the family in the room Non-STelevation myocardial infarction. Acute hypoxemic respiratory failure, on mechanical ventilator support. Drug overdose. Acute chronic obstructive pulmonary disease exacerbation. Acute kidney injury. Metabolic acidosis. Lactic acidosis. Elevated serum transaminases. Left lower extremity ischemia. - Patient Problems (1) Atrial fibrillation Current Visit: Yes Status: Acute (2) Acute renal insufficiency Current Visit: Yes Status: Acute (3) Acute respiratory failure Current Visit: Yes Status: Acute (4) Altered mental state Current Visit: Yes Status: Acute Qualifiers: Altered mental status type: unspecified Qualified Code(s): R41.82 - Altered mental status, unspecified (5) Elevated troponin I level Current Visit: Yes Status: Acute (6) Hypotension Current Visit: Yes Status: Acute Qualifiers: Hypotension type: unspecified hypotension type Qualified Code(s): I95.9 - Hypotension, unspecified (7) Lactic acid acidosis Current Visit: Yes Status: Acute (8) Metabolic acidosis Current Visit: Yes Status: Acute (9) NSTEMI (non-ST elevated myocardial infarction) Current Visit: Yes Status: Acute (10) 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 Appears to be more alert. In no acute distress. Objective Vital Signs Temp Pulse Pulse Pulse Resp Resp BP 10/14/18 12:30 104 H 13 138/69 10/14/18 12:01 106 H 15 153/73 10/14/18 12:00 104 H 13 10/14/18 11:30 91 H 25 H 104/56 10/14/18 11:00 95 H 25 H 109/65 10/14/18 10:30 92 H 25 H 105/57 10/14/18 10:00 95 H 25 H 116/62 05/05/ 09:30 95 H 25 H 99/56 05/05 09:00 110 H 17 155/66 05/10/28 08:31 111 H 13 137/77 10/14/18 08:00 98.8 F 96 H 94 H 25 H 125/66 /05 07:34 93 H 25 H 0505 07:30 90 25 H 110/61 05/10/28 07:18 86 25 H 05 07:14 92 H 104/61 /10/28 07:00 89 25 H 104/61 10/14/18 06:30 88 25 H 106/59 /10/28 06:00 89 25 H 110/55 0505 05:30 96 H 22 123/70 /10/28 05:00 98 H 25 H 133/73 /10/28 04:31 110 H 15 163/86 10/14/18 04:03 87 24 05 04:00 98.0 F 91 H 25 H 107/65 05/05 03:43 107 H 113/64 05/05 03:30 92 H 25 H 113/64 05/05/ 03:00 94 H 25 H 105/69 05/05/ 02:30 96 H 25 H 108/63 05/05 02:00 101 H 89 22 24 134/74 05/05/ 01:30 98 H 25 H 134/74 05/05/19 01:00 93 H 25 H 118/62 05/05/19 00:30 93 H 25 H 117/65 05/05/19 00:00 98.9 F 94 H 25 H 110/61 05/04 23:33 105 H 25 H 115/62 05/04/19 23:30 95 H 25 H 115/62 05/04/19 23:16 95 H 113/60 05/04 23:15 99 H 25 H 113/60 05/09/28 23:00 102 H 25 H 113/60 05/09/28 22:45 98 H 18 117/66 05/09/28 22:30 100 H 25 H 117/66 05/09/28 22:15 106 H 14 125/70 /09/28 22:00 102 H 15 125/70 05// 21:45 97 H 22 117/66 10/13/18 21:30 99 H 25 H 117/66 10/13/18 21:15 102 H 15 143/89 10/13/18 21:00 108 H 18 143/89 10/13/18 20:45 103 H 12 123/60 10/13/18 20:30 103 H 17 125/63 10/13/18 20:15 100 H 12 124/61 10/13/18 20:00 99.2 F 109 H 22 131/89 10/13/18 19:59 115 H 10/13/18 19:45 99 H 25 H 125/61 /09/28 19:30 106 H 25 H 119/65 10/13/18 19:24 97 H 25 H 10/13/18 19:18 93 H 127/63 10/13/18 19:15 98 H 25 H 127/63 10/13/18 19:00 96 H 25 H 122/63 10/13/18 18:45 97 H 15 130/67 10/13/18 18:31 112 H 25 H 111/60 10/13/18 18:15 93 H 25 H 120/55 10/13/18 18:00 96 H 25 H 116/62 10/13/18 17:45 96 H 25 H 116/60 10/13/18 17:30 97 H 25 H 121/62 10/13/18 17:15 100 H 25 H 119/65 10/13/18 17:00 94 H 25 H 114/65 10/13/18 16:45 96 H 25 H 113/57 10/13/18 16:30 97 H 25 H 121/64 10/13/18 16:15 94 H 25 H 117/68 10/13/18 16:01 95 H 22 121/61 /09/28 16:00 95 H 22 10/13/18 15:58 98.3 F 10/13/18 15:45 97 H 25 H 135/66 10/13/18 15:30 110 H 25 H 154/88 10/13/18 15:15 95 H 18 143/71 10/13/18 15:00 95 H 25 H 138/71 10/13/18 14:45 95 H 25 H 121/65 10/13/18 14:37 96 H 25 H 10/13/18 14:30 95 H 25 H 132/70 10/13/18 14:22 95 H 25 H 10/13/18 14:15 101 H 25 H 129/64 10/13/18 14:00 95 H 25 H 128/64 10/13/18 13:53 102 H 126/65 10/13/18 13:45 101 H 25 H 129/102 10/13/18 13:31 101 H 25 H 116/71 10/13/18 13:15 108 H 25 H 116/71 10/13/18 13:00 97 H 25 H 120/63 Pulse Ox 10/14/18 12:30 94 10/14/18 12:01 96 10/14/18 12:00 96 10/14/18 11:30 94 10/14/18 11:00 94 10/14/18 10:30 92 10/14/18 10:00 90 10/14/18 09:30 89 10/14/18 09:00 95 10/14/18 08:31 95 10/14/18 08:00 94 10/14/18 07:34 10/14/18 07:30 91 10/14/18 07:18 10/14/18 07:14 97 10/14/18 07:00 93 10/14/18 06:30 92 10/14/18 06:00 92 10/14/18 05:30 96 10/14/18 05:00 95 10/14/18 04:31 96 10/14/18 04:03 10/14/18 04:00 95 10/14/18 03:43 106 H 10/14/18 03:30 94 10/14/18 03:00 96 10/14/18 02:30 92 10/14/18 02:00 95 10/14/18 01:30 97 10/14/18 01:00 10/14/18 00:30 10/14/18 00:00 10/13/18 23:33 94 10/13/18 23:30 94 10/13/18 23:16 96 10/13/18 23:15 94 10/13/18 23:00 90 10/13/18 22:45 93 10/13/18 22:30 92 10/13/18 22:15 97 10/13/18 22:00 92 10/13/18 21:45 93 05/04/19 21:30 91 10/13/18 21:15 96 10/13/18 21:00 94 10/13/18 20:45 91 10/13/18 20:30 93 10/13/18 20:15 92 10/13/18 20:00 94 10/13/18 19:59 10/13/18 19:45 90 10/13/18 19:30 91 10/13/18 19:24 10/13/18 19:18 93 10/13/18 19:15 92 10/13/18 19:00 93 10/13/18 18:45 94 10/13/18 18:31 93 10/13/18 18:15 93 10/13/18 18:00 94 10/13/18 17:45 93 10/13/18 17:30 94 10/13/18 17:15 93 10/13/18 17:00 93 10/13/18 16:45 91 10/13/18 16:30 92 10/13/18 16:15 94 10/13/18 16:01 94 10/13/18 16:00 94 10/13/18 15:58 10/13/18 15:45 93 10/13/18 15:30 94 10/13/18 15:15 95 10/13/18 15:00 94 10/13/18 14:45 94 10/13/18 14:37 10/13/18 14:30 93 10/13/18 14:22 10/13/18 14:15 94 10/13/18 14:00 93 10/13/18 13:53 95 10/13/18 13:45 96 10/13/18 13:31 96 10/13/18 13:15 94 10/13/18 13:00 94 - Physical Examination General: Other (intubated) Neck: Positive: neck supple Cardiac: Positive: Reg Rate and Rhythm Lungs: Positive: Decreased Breath Sounds (both bases.) Neuro: Positive: Other (intubated) Abdomen: Positive: Soft. Negative: Tender Skin: Negative: Rash Extremities: Present: Other (chronic skin changes noted bilaterally. Patient has mottling of the left leg just proximal to the ankle) - Labs and Meds Cardiac Enzymes 10/14/18 Range/Units 09:45 AST 110 H (5-40) units/L CBC 05/05/19 Range/Units 09:45 WBC 7.8 (4.5-11.0) K/mm3 RBC 3.73 (3.65-5.03) M/mm3 Hgb 11.4 L (11.8-15.2) gm/dl Hct 34.5 L (35.5-45.6) % Plt Count 139 L (140-440) K/mm3 Comprehensive Metabolic Panel 10/14/18 Range/Units 09:45 Sodium 148 H (137-145) mmol/L Potassium 3.7 (3.6-5.0) mmol/L Chloride 107.3 H (98-107) mmol/L Carbon Dioxide 34 H D (22-30) mmol/L BUN 18 (9-20) mg/dL Creatinine 0.7 L D (0.8-1.5) mg/dL Glucose 191 H (75-100) mg/dL Calcium 7.3 L (8.4-10.2) mg/dL AST 110 H (5-40) units/L ALT 91 H (7-56) units/L Alkaline Phosphatase 58 (35-129) units/L Total Protein 4.9 L (6.3-8.2) g/dL Albumin 2.0 L (3.9-5) g/dL - Imaging and Cardiology EKG: report reviewed, image reviewed Echo: report reviewed - EKG Sinus rhythms and dysrhythmias: sinus rhythm - Allied health notes Allied health notes reviewed: nursing
--- NOTE | 2018-10-14 15:31 | Progress Note ---
Assessment and Plan Acute hypoxemic respiratory failure, on mechanical ventilator support. 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 Witnessed seizure en route. Acute kidney injury. Leukocytosis. Hypercapnia. Hyperkalemia. Metabolic acidosis. Lactic acidosis. Non-ST elevation myocardial infarction. Elevated serum transaminases. - daily SAT and SBT, start PSV trials today - continue bronchodilators with pulmonary hygiene per RT - continue GI & VTE prophylaxis - continue to wean supplemental oxygen to keep O2 sats 88-90% - Lung protective strategies - Daily ABGs/CXR for now - VAP bundle addressed -Free water flushes increased to 200ml q4 for hypernatremia - Continue cardioprotective measures -Continue with secondary stroke prophylaxis -Follow up 2D echo report, will need QUIQUE - Replete electrolytes as indicated - Follow cultures and adjust antibiotics for ID/CALEB (Deescalate as indicated) - Tracheal aspirate, blood cultures are negative to date - Continue bronchodilators with pulmonary hygiene per RT - Get bladder scan if no urine output in the next 6 hours. Will replace edmondson if indicated fro acute urinary retention - Monitor renal indices closely - Avoid nephrotoxic agents, adjust all medications for CrCL - Strict intake and output monitoring - Tube feedings, Osmolite - Aspiration precautions - Accuchecks with glycemic control. Target glucose of 140-180 mg/dL - Maintenance of sleep -wake cycle - Mobility as tolerated by hemodynamics - Influenza and pneumonia vaccination per protocol ..care plan discussed at length with RN/RT at the bedside ..updated family at the bedside -discussed with primary service -Not anticoagulated at this time because of recent stroke PROGNOSIS: GUARDED CONDITION: CRITICAL CODE STATUS: FULL CODE The high probability of a clinically significant, sudden or life-threatening deterioration of the [respiratory, neurology, renal, vascular] system(s) requi red my full and direct attention, intervention and personal management. The aggregate critical care time was [45] minutes without overlap. Time includes spent on; [x] Data Review and interpretation [x] Patient assessment and monitoring of vital signs [x] Documentation [x] Medication orders and management Subjective Date of service: 10/14/18 Principal diagnosis: Ac hypercapnic hypoxemic Resp failure; Drug OD; AE-COPD; NINOSKA; Seizures Interval history: Patient is seen today for: Acute hypoxemic respiratory failure, on mechanical ventilator support; Drug overdose; Acute chronic obstructive pulmonary disease exacerbation; Witnessed seizure en route; Acute kidney injury; Leukocytosis; Hypercapnia. Seen and examined at bedside; 24-hour events reviewed; nursing and respiratory care staff consulted; no adverse overnight events reported to me; remains with AMS; resting peacefully in bed; No N/V/F/C; Leukocytosis has improved, had urinary retention overnight requiring straight catheterization, 750ml of urine drained; remains off vasopressor support, on fentanyl continuous infusion, rousable. Family visiting at the bedside Objective Vital Signs - 12hr 10/14/18 10/14/18 10/14/18 03:43 04:00 04:03 Temperature 98.0 F Pulse Rate 107 H 91 H Pulse Rate [ 87 Anterior Bilateral Throughout] Pulse Rate [ From Monitor] Respiratory 25 H Rate Respiratory 24 Rate [Anterior Bilateral Throughout] Blood Pressure 113/64 107/65 O2 Sat by Pulse 106 H 95 Oximetry 10/14/18 10/14/18 10/14/18 04:31 05:00 05:30 Temperature Pulse Rate 110 H 98 H 96 H Pulse Rate [ Anterior Bilateral Throughout] Pulse Rate [ From Monitor] Respiratory 15 25 H 22 Rate Respiratory Rate [Anterior Bilateral Throughout] Blood Pressure 163/86 133/73 123/70 O2 Sat by Pulse 96 95 96 Oximetry 10/14/18 10/14/18 10/14/18 06:00 06:30 07:00 Temperature Pulse Rate 89 88 89 Pulse Rate [ Anterior Bilateral Throughout] Pulse Rate [ From Monitor] Respiratory 25 H 25 H 25 H Rate Respiratory Rate [Anterior Bilateral Throughout] Blood Pressure 110/55 106/59 104/61 O2 Sat by Pulse 92 92 93 Oximetry 10/14/18 10/14/18 10/14/18 07:14 07:18 07:30 Temperature Pulse Rate 92 H 90 Pulse Rate [ 86 Anterior Bilateral Throughout] Pulse Rate [ From Monitor] Respiratory 25 H Rate Respiratory 25 H Rate [Anterior Bilateral Throughout] Blood Pressure 104/61 110/61 O2 Sat by Pulse 97 91 Oximetry 10/14/18 10/14/18 10/14/18 07:34 08:00 08:31 Temperature 98.8 F Pulse Rate 96 H 111 H Pulse Rate [ 93 H Anterior Bilateral Throughout] Pulse Rate [ 94 H From Monitor] Respiratory 25 H 13 Rate Respiratory 25 H Rate [Anterior Bilateral Throughout] Blood Pressure 125/66 137/77 O2 Sat by Pulse 94 95 Oximetry 10/14/18 10/14/18 10/14/18 09:00 09:30 10:00 Temperature Pulse Rate 110 H 95 H 95 H Pulse Rate [ Anterior Bilateral Throughout] Pulse Rate [ From Monitor] Respiratory 17 25 H 25 H Rate Respiratory Rate [Anterior Bilateral Throughout] Blood Pressure 155/66 99/56 116/62 O2 Sat by Pulse 95 89 90 Oximetry 10/14/18 10/14/18 10/14/18 10:30 11:00 11:30 Temperature Pulse Rate 92 H 95 H 91 H Pulse Rate [ Anterior Bilateral Throughout] Pulse Rate [ From Monitor] Respiratory 25 H 25 H 25 H Rate Respiratory Rate [Anterior Bilateral Throughout] Blood Pressure 105/57 109/65 104/56 O2 Sat by Pulse 92 94 94 Oximetry 10/14/18 10/14/18 10/14/18 12:00 12:01 12:30 Temperature 99.9 F H Pulse Rate 106 H 104 H Pulse Rate [ Anterior Bilateral Throughout] Pulse Rate [ 104 H From Monitor] Respiratory 13 15 13 Rate Respiratory Rate [Anterior Bilateral Throughout] Blood Pressure 153/73 138/69 O2 Sat by Pulse 96 96 94 Oximetry 10/14/18 10/14/18 10/14/18 13:00 13:30 14:00 Temperature Pulse Rate 111 H 106 H 117 H Pulse Rate [ Anterior Bilateral Throughout] Pulse Rate [ From Monitor] Respiratory 18 13 17 Rate Respiratory Rate [Anterior Bilateral Throughout] Blood Pressure 128/62 138/73 145/79 O2 Sat by Pulse 93 95 99 Oximetry 10/14/18 10/14/18 10/14/18 14:15 14:21 14:31 Temperature Pulse Rate 109 H Pulse Rate [ 108 H 108 H Anterior Bilateral Throughout] Pulse Rate [ From Monitor] Respiratory 16 Rate Respiratory 20 20 Rate [Anterior Bilateral Throughout] Blood Pressure 133/85 O2 Sat by Pulse 99 Oximetry 10/14/18 15:00 Temperature Pulse Rate 100 H Pulse Rate [ Anterior Bilateral Throughout] Pulse Rate [ From Monitor] Respiratory 9 L Rate Respiratory Rate [Anterior Bilateral Throughout] Blood Pressure 129/64 O2 Sat by Pulse 95 Oximetry Constitutional: no acute distress, other (middle aged but chronically ill looking CM; Atraumatic) Eyes: non-icteric ENT: oropharynx moist, other (ETT 23 cm SHELBI) Neck: supple, no lymphadenopathy, no JVD Effort: normal Ascultation: Bilateral: diminished breath sounds, rhonchi Percussion: Bilateral: not dull Cardiovascular: irregular rhythm, other (No R/M) Gastrointestinal: normoactive bowel sounds, soft, non-tender, non-distended Integumentary: other (poor turgor) Extremities: no edema, no ischemia or petechiae, cool, cyanosis Neurologic: pupils equal and round, other (Left hemiparesis) Psychiatric: other (unable to assess re: AMS) CBC and BMP: 10/17/18 05:40 10/15/18 12:00 ABG, PT/INR, D-dimer: ABG POC ABG pH 7.381 (7.35-7.45) 10/14/18 04:52 POC ABG pCO2 56.0 (35-45) H 10/14/18 04:52 POC ABG pO2 95 (80-105) 10/14/18 04:52 POC ABG HCO3 33.2 (22-26 mml/L) 10/14/18 04:52 POC ABG Total CO2 35 (23-27mmol/L) 10/14/18 04:52 POC ABG O2 Sat 97 10/14/18 04:52 PT/INR, D-dimer PT 14.7 Sec. (12.2-14.9) 10/11/18 08:29 INR 1.08 (0.87-1.13) 10/11/18 08:29 Abnormal lab findings: Abnormal Labs 10/11/18 10/11/18 10/11/18 00:16 00:16 00:16 WBC 20.1 H Hgb Hct MCV 98 H RDW 15.4 H Plt Count [place] % (Auto) [place] # Seg Neutrophils % Seg Neuts % (Manual) Lymphocytes % (Manual) 5.0 L Monocytes % (Manual) 25.0 H Seg Neutrophils # Seg Neutrophils # Man 9.2 H Lymphocytes # (Manual) 1.0 L Monocytes # (Manual) 5.0 H APTT POC ABG pH POC ABG pCO2 POC ABG pO2 Sodium Potassium 5.8 H Chloride Carbon Dioxide 17 L BUN Creatinine 2.2 H Glucose 348 H POC Glucose Lactic Acid 13.70 H* Calcium 7.7 L Phosphorus Total Bilirubin 1.50 H AST 179 H ALT 110 H Total Creatine Kinase 324 H CK-MB (CK-2) Troponin T 0.257 H* Total Protein 5.9 L Albumin 2.9 L HDL Cholesterol 19 L Salicylates Acetaminophen 10/11/18 10/11/18 10/11/18 00:16 00:16 01:21 WBC Hgb Hct MCV RDW Plt Count [place] % (Auto) [place] # Seg Neutrophils % Seg Neuts % (Manual) Lymphocytes % (Manual) Monocytes % (Manual) Seg Neutrophils # Seg Neutrophils # Man Lymphocytes # (Manual) Monocytes # (Manual) APTT POC ABG pH 7.110 L POC ABG pCO2 50.3 H POC ABG pO2 65 L Sodium Potassium Chloride Carbon Dioxide BUN Creatinine Glucose POC Glucose Lactic Acid Calcium Phosphorus Total Bilirubin AST ALT Total Creatine Kinase CK-MB (CK-2) Troponin T Total Protein Albumin HDL Cholesterol Salicylates < 0.3 L Acetaminophen < 5.0 L 10/11/18 10/11/18 10/11/18 01:22 03:27 04:14 WBC Hgb Hct MCV RDW Plt Count [place] % (Auto) [place] # Seg Neutrophils % Seg Neuts % (Manual) Lymphocytes % (Manual) Monocytes % (Manual) Seg Neutrophils # Seg Neutrophils # Man Lymphocytes # (Manual) Monocytes # (Manual) APTT POC ABG pH POC ABG pCO2 POC ABG pO2 Sodium Potassium Chloride Carbon Dioxide BUN Creatinine Glucose POC Glucose Lactic Acid 8.50 H* 4.10 H* Calcium Phosphorus 4.90 H Total Bilirubin AST ALT Total Creatine Kinase CK-MB (CK-2) Troponin T Total Protein Albumin HDL Cholesterol Salicylates Acetaminophen 10/11/18 10/11/18 10/11/18 04:14 04:14 04:14 WBC Hgb Hct MCV RDW Plt Count [place] % (Auto) [place] # Seg Neutrophils % Seg Neuts % (Manual) Lymphocytes % (Manual) Monocytes % (Manual) Seg Neutrophils # Seg Neutrophils # Man Lymphocytes # (Manual) Monocytes # (Manual) APTT POC ABG pH POC ABG pCO2 POC ABG pO2 Sodium Potassium 5.6 H Chloride Carbon Dioxide 19 L BUN Creatinine 1.6 H Glucose 329 H POC Glucose 328 H Lactic Acid Calcium 7.3 L Phosphorus Total Bilirubin AST ALT Total Creatine Kinase CK-MB (CK-2) Troponin T 1.130 H* D Total Protein Albumin HDL Cholesterol Salicylates Acetaminophen 10/11/18 10/11/18 10/11/18 05:10 05:32 05:58 WBC Hgb Hct MCV RDW Plt Count [place] % (Auto) [place] # Seg Neutrophils % Seg Neuts % (Manual) Lymphocytes % (Manual) Monocytes % (Manual) Seg Neutrophils # Seg Neutrophils # Man Lymphocytes # (Manual) Monocytes # (Manual) APTT POC ABG pH 7.259 L POC ABG pCO2 45.6 H POC ABG pO2 Sodium Potassium Chloride 108.6 H Carbon Dioxide 20 L BUN Creatinine 1.8 H Glucose 269 H POC Glucose 273 H Lactic Acid Calcium 7.0 L Phosphorus Total Bilirubin AST ALT Total Creatine Kinase CK-MB (CK-2) Troponin T Total Protein Albumin HDL Cholesterol Salicylates Acetaminophen 10/11/18 10/11/18 10/11/18 05:58 06:39 07:00 WBC Hgb Hct MCV RDW Plt Count [place] % (Auto) [place] # Seg Neutrophils % Seg Neuts % (Manual) Lymphocytes % (Manual) Monocytes % (Manual) Seg Neutrophils # Seg Neutrophils # Man Lymphocytes # (Manual) Monocytes # (Manual) APTT POC ABG pH POC ABG pCO2 POC ABG pO2 Sodium Potassium Chloride Carbon Dioxide BUN Creatinine Glucose POC Glucose 247 H Lactic Acid 3.20 H* 3.30 H* Calcium Phosphorus Total Bilirubin AST ALT Total Creatine Kinase CK-MB (CK-2) Troponin T Total Protein Albumin HDL Cholesterol Salicylates Acetaminophen 10/11/18 10/11/18 10/11/18 07:00 07:30 07:36 WBC Hgb Hct MCV RDW Plt Count [place] % (Auto) [place] # Seg Neutrophils % Seg Neuts % (Manual) Lymphocytes % (Manual) Monocytes % (Manual) Seg Neutrophils # Seg Neutrophils # Man Lymphocytes # (Manual) Monocytes # (Manual) APTT POC ABG pH POC ABG pCO2 POC ABG pO2 Sodium 146 H Potassium Chloride 112.1 H Carbon Dioxide 21 L BUN Creatinine 1.6 H Glucose 218 H POC Glucose Lactic Acid 3.20 H* Calcium 7.0 L Phosphorus Total Bilirubin AST ALT Total Creatine Kinase CK-MB (CK-2) Troponin T 1.020 H* Total Protein Albumin HDL Cholesterol Salicylates Acetaminophen 10/11/18 10/11/18 10/11/18 07:43 08:29 08:29 WBC Hgb 16.2 H Hct 49.9 H D MCV RDW Plt Count [place] % (Auto) [place] # Seg Neutrophils % Seg Neuts % (Manual) Lymphocytes % (Manual) Monocytes % (Manual) Seg Neutrophils # Seg Neutrophils # Man Lymphocytes # (Manual) Monocytes # (Manual) APTT POC ABG pH POC ABG pCO2 POC ABG pO2 Sodium Potassium Chloride Carbon Dioxide BUN Creatinine Glucose POC Glucose 174 H Lactic Acid 3.90 H* Calcium Phosphorus Total Bilirubin AST ALT Total Creatine Kinase CK-MB (CK-2) Troponin T Total Protein Albumin HDL Cholesterol Salicylates Acetaminophen 10/11/18 10/11/18 10/11/18 08:29 08:42 11:05 WBC Hgb Hct MCV RDW Plt Count [place] % (Auto) [place] # Seg Neutrophils % Seg Neuts % (Manual) Lymphocytes % (Manual) Monocytes % (Manual) Seg Neutrophils # Seg Neutrophils # Man Lymphocytes # (Manual) Monocytes # (Manual) APTT 24.1 L POC ABG pH POC ABG pCO2 POC ABG pO2 Sodium 147 H Potassium Chloride 113.3 H Carbon Dioxide 21 L BUN Creatinine 1.7 H Glucose 119 H POC Glucose 164 H Lactic Acid Calcium 7.7 L Phosphorus Total Bilirubin AST ALT Total Creatine Kinase CK-MB (CK-2) Troponin T Total Protein Albumin HDL Cholesterol Salicylates Acetaminophen 10/11/18 10/11/18 10/11/18 11:05 11:06 12:30 WBC Hgb Hct MCV RDW Plt Count [place] % (Auto) [place] # Seg Neutrophils % Seg Neuts % (Manual) Lymphocytes % (Manual) Monocytes % (Manual) Seg Neutrophils # Seg Neutrophils # Man Lymphocytes # (Manual) Monocytes # (Manual) APTT POC ABG pH POC ABG pCO2 POC ABG pO2 Sodium 148 H Potassium Chloride 113.4 H Carbon Dioxide 21 L BUN Creatinine 1.6 H Glucose 119 H POC Glucose 116 H Lactic Acid 3.20 H* Calcium 7.5 L Phosphorus Total Bilirubin AST ALT Total Creatine Kinase CK-MB (CK-2) Troponin T Total Protein Albumin HDL Cholesterol Salicylates Acetaminophen 10/11/18 10/11/18 10/11/18 12:30 13:16 13:25 WBC Hgb Hct MCV RDW Plt Count [place] % (Auto) [place] # Seg Neutrophils % Seg Neuts % (Manual) Lymphocytes % (Manual) Monocytes % (Manual) Seg Neutrophils # Seg Neutrophils # Man Lymphocytes # (Manual) Monocytes # (Manual) APTT POC ABG pH 7.247 L POC ABG pCO2 48.4 H POC ABG pO2 Sodium Potassium Chloride Carbon Dioxide BUN Creatinine Glucose POC Glucose 112 H Lactic Acid 2.70 H* Calcium Phosphorus Total Bilirubin AST ALT Total Creatine Kinase CK-MB (CK-2) Troponin T Total Protein Albumin HDL Cholesterol Salicylates Acetaminophen 10/11/18 10/11/18 10/11/18 14:41 15:27 16:13 WBC Hgb Hct MCV RDW Plt Count [place] % (Auto) [place] # Seg Neutrophils % Seg Neuts % (Manual) Lymphocytes % (Manual) Monocytes % (Manual) Seg Neutrophils # Seg Neutrophils # Man Lymphocytes # (Manual) Monocytes # (Manual) APTT POC ABG pH POC ABG pCO2 POC ABG pO2 Sodium Potassium Chloride Carbon Dioxide BUN Creatinine Glucose POC Glucose 127 H 141 H 134 H Lactic Acid Calcium Phosphorus Total Bilirubin AST ALT Total Creatine Kinase CK-MB (CK-2) Troponin T Total Protein Albumin HDL Cholesterol Salicylates Acetaminophen 10/11/18 10/11/18 10/11/18 17:18 18:23 19:38 WBC Hgb Hct MCV RDW Plt Count [place] % (Auto) [place] # Seg Neutrophils % Seg Neuts % (Manual) Lymphocytes % (Manual) Monocytes % (Manual) Seg Neutrophils # Seg Neutrophils # Man Lymphocytes # (Manual) Monocytes # (Manual) APTT POC ABG pH POC ABG pCO2 POC ABG pO2 Sodium 148 H Potassium Chloride 112.7 H Carbon Dioxide BUN 23 H Creatinine Glucose 143 H POC Glucose 132 H 129 H Lactic Acid Calcium 7.9 L Phosphorus Total Bilirubin AST ALT Total Creatine Kinase CK-MB (CK-2) Troponin T Total Protein Albumin HDL Cholesterol Salicylates Acetaminophen 10/11/18 10/11/18 10/11/18 20:19 20:36 21:01 WBC Hgb Hct MCV RDW Plt Count [place] % (Auto) [place] # Seg Neutrophils % Seg Neuts % (Manual) Lymphocytes % (Manual) Monocytes % (Manual) Seg Neutrophils # Seg Neutrophils # Man Lymphocytes # (Manual) Monocytes # (Manual) APTT POC ABG pH 7.281 L POC ABG pCO2 POC ABG pO2 Sodium Potassium Chloride Carbon Dioxide BUN Creatinine Glucose POC Glucose 129 H 151 H Lactic Acid Calcium Phosphorus Total Bilirubin AST ALT Total Creatine Kinase CK-MB (CK-2) Troponin T Total Protein Albumin HDL Cholesterol Salicylates Acetaminophen 10/11/18 10/11/18 10/12/18 22:04 23:15 01:18 WBC Hgb Hct MCV RDW Plt Count [place] % (Auto) [place] # Seg Neutrophils % Seg Neuts % (Manual) Lymphocytes % (Manual) Monocytes % (Manual) Seg Neutrophils # Seg Neutrophils # Man Lymphocytes # (Manual) Monocytes # (Manual) APTT POC ABG pH POC ABG pCO2 POC ABG pO2 Sodium Potassium Chloride Carbon Dioxide BUN Creatinine Glucose POC Glucose 147 H 143 H 158 H Lactic Acid Calcium Phosphorus Total Bilirubin AST ALT Total Creatine Kinase CK-MB (CK-2) Troponin T Total Protein Albumin HDL Cholesterol Salicylates Acetaminophen 10/12/18 10/12/18 10/12/18 02:13 03:18 04:04 WBC Hgb Hct MCV RDW Plt Count [place] % (Auto) [place] # Seg Neutrophils % Seg Neuts % (Manual) Lymphocytes % (Manual) Monocytes % (Manual) Seg Neutrophils # Seg Neutrophils # Man Lymphocytes # (Manual) Monocytes # (Manual) APTT POC ABG pH POC ABG pCO2 POC ABG pO2 Sodium 147 H Potassium Chloride 111.1 H Carbon Dioxide BUN 30 H Creatinine 2.0 H Glucose 154 H POC Glucose 148 H 142 H Lactic Acid Calcium 8.1 L Phosphorus Total Bilirubin AST 269 H ALT 204 H Total Creatine Kinase 3647 H CK-MB (CK-2) 48.3 H Troponin T 2.230 H* D Total Protein 5.8 L Albumin 2.6 L HDL Cholesterol Salicylates Acetaminophen 10/12/18 10/12/18 10/12/18 04:04 04:08 04:19 WBC 24.4 H Hgb Hct MCV RDW Plt Count [place] % (Auto) [place] # Seg Neutrophils % Seg Neuts % (Manual) 32.0 L Lymphocytes % (Manual) Monocytes % (Manual) 8.0 H Seg Neutrophils # Seg Neutrophils # Man 7.8 H Lymphocytes # (Manual) Monocytes # (Manual) 2.0 H APTT POC ABG pH 7.317 L POC ABG pCO2 49.3 H POC ABG pO2 Sodium Potassium Chloride Carbon Dioxide BUN Creatinine Glucose POC Glucose 143 H Lactic Acid Calcium Phosphorus Total Bilirubin AST ALT Total Creatine Kinase CK-MB (CK-2) Troponin T Total Protein Albumin HDL Cholesterol Salicylates Acetaminophen 10/12/18 10/12/18 10/12/18 05:29 06:52 08:09 WBC Hgb Hct MCV RDW Plt Count [place] % (Auto) [place] # Seg Neutrophils % Seg Neuts % (Manual) Lymphocytes % (Manual) Monocytes % (Manual) Seg Neutrophils # Seg Neutrophils # Man Lymphocytes # (Manual) Monocytes # (Manual) APTT POC ABG pH 7.322 L POC ABG pCO2 46.5 H POC ABG pO2 Sodium Potassium Chloride Carbon Dioxide BUN Creatinine Glucose POC Glucose 196 H 226 H Lactic Acid Calcium Phosphorus Total Bilirubin AST ALT Total Creatine Kinase CK-MB (CK-2) Troponin T Total Protein Albumin HDL Cholesterol Salicylates Acetaminophen 10/12/18 10/12/18 10/12/18 08:38 10:03 15:50 WBC Hgb Hct MCV RDW Plt Count [place] % (Auto) [place] # Seg Neutrophils % Seg Neuts % (Manual) Lymphocytes % (Manual) Monocytes % (Manual) Seg Neutrophils # Seg Neutrophils # Man Lymphocytes # (Manual) Monocytes # (Manual) APTT POC ABG pH POC ABG pCO2 POC ABG pO2 Sodium Potassium Chloride Carbon Dioxide BUN Creatinine Glucose POC Glucose 138 H 148 H 221 H Lactic Acid Calcium Phosphorus Total Bilirubin AST ALT Total Creatine Kinase CK-MB (CK-2) Troponin T Total Protein Albumin HDL Cholesterol Salicylates Acetaminophen 10/12/18 10/12/18 10/12/18 18:39 20:56 21:34 WBC Hgb Hct MCV RDW Plt Count [place] % (Auto) [place] # Seg Neutrophils % Seg Neuts % (Manual) Lymphocytes % (Manual) Monocytes % (Manual) Seg Neutrophils # Seg Neutrophils # Man Lymphocytes # (Manual) Monocytes # (Manual) APTT POC ABG pH 7.336 L POC ABG pCO2 46.0 H POC ABG pO2 Sodium Potassium Chloride Carbon Dioxide BUN Creatinine Glucose POC Glucose 255 H 260 H Lactic Acid Calcium Phosphorus Total Bilirubin AST ALT Total Creatine Kinase CK-MB (CK-2) Troponin T Total Protein Albumin HDL Cholesterol Salicylates Acetaminophen 10/13/18 10/13/18 10/13/18 02:29 05:09 05:40 WBC 17.0 H Hgb Hct MCV RDW Plt Count [place] % (Auto) 9.2 H [place] # 1.6 H Seg Neutrophils % 76.2 H Seg Neuts % (Manual) Lymphocytes % (Manual) Monocytes % (Manual) Seg Neutrophils # 12.9 H Seg Neutrophils # Man Lymphocytes # (Manual) Monocytes # (Manual) APTT POC ABG pH POC ABG pCO2 POC ABG pO2 Sodium Potassium Chloride Carbon Dioxide BUN Creatinine Glucose POC Glucose 216 H 249 H Lactic Acid Calcium Phosphorus Total Bilirubin AST ALT Total Creatine Kinase CK-MB (CK-2) Troponin T Total Protein Albumin HDL Cholesterol Salicylates Acetaminophen 10/13/18 10/13/18 10/13/18 05:40 05:40 09:46 WBC Hgb Hct MCV RDW Plt Count [place] % (Auto) [place] # Seg Neutrophils % Seg Neuts % (Manual) Lymphocytes % (Manual) Monocytes % (Manual) Seg Neutrophils # Seg Neutrophils # Man Lymphocytes # (Manual) Monocytes # (Manual) APTT POC ABG pH POC ABG pCO2 POC ABG pO2 Sodium 146 H Potassium Chloride 109.8 H Carbon Dioxide BUN 35 H Creatinine Glucose 245 H POC Glucose 235 H Lactic Acid Calcium 7.9 L Phosphorus Total Bilirubin AST ALT Total Creatine Kinase CK-MB (CK-2) Troponin T 0.952 H* D Total Protein Albumin HDL Cholesterol Salicylates Acetaminophen 10/13/18 10/13/18 10/13/18 13:12 13:58 16:15 WBC Hgb Hct MCV RDW Plt Count [place] % (Auto) [place] # Seg Neutrophils % Seg Neuts % (Manual) Lymphocytes % (Manual) Monocytes % (Manual) Seg Neutrophils # Seg Neutrophils # Man Lymphocytes # (Manual) Monocytes # (Manual) APTT POC ABG pH POC ABG pCO2 46.2 H 51.2 H POC ABG pO2 52 L Sodium Potassium Chloride Carbon Dioxide BUN Creatinine Glucose POC Glucose Lactic Acid Calcium Phosphorus Total Bilirubin AST ALT Total Creatine Kinase CK-MB (CK-2) Troponin T 0.816 H* Total Protein Albumin HDL Cholesterol Salicylates Acetaminophen 10/13/18 10/13/18 10/14/18 17:30 21:25 01:49 WBC Hgb Hct MCV RDW Plt Count [place] % (Auto) [place] # Seg Neutrophils % Seg Neuts % (Manual) Lymphocytes % (Manual) Monocytes % (Manual) Seg Neutrophils # Seg Neutrophils # Man Lymphocytes # (Manual) Monocytes # (Manual) APTT POC ABG pH POC ABG pCO2 POC ABG pO2 Sodium Potassium Chloride Carbon Dioxide BUN Creatinine Glucose POC Glucose 139 H 205 H 166 H Lactic Acid Calcium Phosphorus Total Bilirubin AST ALT Total Creatine Kinase CK-MB (CK-2) Troponin T Total Protein Albumin HDL Cholesterol Salicylates Acetaminophen 10/14/18 10/14/18 10/14/18 04:52 05:32 09:45 WBC Hgb 11.4 L Hct 34.5 L MCV RDW Plt Count 139 L [place] % (Auto) [place] # Seg Neutrophils % Seg Neuts % (Manual) Lymphocytes % (Manual) Monocytes % (Manual) Seg Neutrophils # Seg Neutrophils # Man Lymphocytes # (Manual) Monocytes # (Manual) APTT POC ABG pH POC ABG pCO2 56.0 H POC ABG pO2 Sodium Potassium Chloride Carbon Dioxide BUN Creatinine Glucose POC Glucose 164 H Lactic Acid Calcium Phosphorus Total Bilirubin AST ALT Total Creatine Kinase CK-MB (CK-2) Troponin T Total Protein Albumin HDL Cholesterol Salicylates Acetaminophen 10/14/18 10/14/18 10/14/18 09:45 10:54 12:20 WBC Hgb Hct MCV RDW Plt Count [place] % (Auto) [place] # Seg Neutrophils % Seg Neuts % (Manual) Lymphocytes % (Manual) Monocytes % (Manual) Seg Neutrophils # Seg Neutrophils # Man Lymphocytes # (Manual) Monocytes # (Manual) APTT POC ABG pH POC ABG pCO2 POC ABG pO2 Sodium 148 H Potassium Chloride 107.3 H Carbon Dioxide 34 H D BUN Creatinine 0.7 L D Glucose 191 H POC Glucose 173 H 158 H Lactic Acid Calcium 7.3 L Phosphorus Total Bilirubin AST 110 H ALT 91 H Total Creatine Kinase CK-MB (CK-2) Troponin T Total Protein 4.9 L Albumin 2.0 L HDL Cholesterol Salicylates Acetaminophen Chest x-ray: image reviewed Allied health notes reviewed: nursing
--- NOTE | 2018-10-14 20:14 | XRay Report ---
PROCEDURE: XR ABDOMEN 1V AP HISTORY: dobhoff insertion FINDINGS: Supine view of the abdomen was acquired. There is a Dobbhoff tube with its tip in the gastr ic fundus. IMPRESSION: The Dobbhoff tube terminates in the gastric fundus This document is electronically signed by Carlton Cazares MD., Oct 14 2018 08:11:43 PM ET
[2018-10-14] MEDS: LEVOPHED DRIP 4 MG/NS 250 ML 4 MG/250 ML BAG IV SCH (23:25)
[2018-10-15] MEDS: fentaNYL DRIP Premix 2,000 MCG/100 ML BAG IV SCH ×3 (00:55→21:00)
[2018-10-15] MEDS: DUONEB *Not for PRN Use IH SCH ×4 (02:18→19:41)
--- NOTE | 2018-10-15 02:34 | XRay Report ---
PROCEDURE: XR ABDOMEN 1V AP TECHNIQUE: Single view of the abdomen HISTORY: Dobhoff tube placement confirmation COMPARISONS: October 14 FINDINGS: Dobbhoff tube in the stomach with the distal end directed towards the gastric antrum. Nonspecific bowel gas pattern in the upper abdomen. IMPRESSION: Dobbhoff tube in the stomach.. This document is electronically signed by Kennedy Saucedo MD., Oct 15 2018 02:31:57 AM ET
[2018-10-15] MEDS: HumuLIN R SUB-Q SCH ×6 (02:42→21:39)
[2018-10-15] MEDS: HEPARIN SUB-Q SCH (06:01)
[2018-10-15] MEDS: UNASYN/NS 3 GM/100 ML 3 GM/100 ML BAG IV SCH ×3 (06:01→17:22)
[2018-10-15 06:38] LABS: Hematocrit 34.7 % (35.5-45.6); Hemoglobin 11.7 gm/dl (11.8-15.2)
--- NOTE | 2018-10-15 07:56 | XRay Report ---
PROCEDURE: XR CHEST 1V AP TECHNIQUE: Chest radiograph single view. HISTORY: follow up respiratory failure COMPARISONS: None . FINDINGS: Heart: Normal. Mediastinum/Vessels: Normal. Lungs/Pleural space: Lungs are expanded. There are mild fibrotic changes. There are no acute infiltr ates, effusions or pneumothoraces.. Bony thorax: No acute osseous abnormality. Life support devices: Endotracheal tube is in the mid trachea. NG tube is in the stomach. There is a right-sided PICC line. The tip is in the superior vena cava.. IMPRESSION: Heart size is normal.. Lungs are expanded. There are mild fibrotic changes. There are no acute infiltrates, effusions or pne umothoraces.. Endotracheal tube is in the mid trachea. NG tube is in the stomach. There is a right-sided PICC line. The tip is in the superior vena cava.. This document is electronically signed by Ketan Galindo MD., Oct 15 2018 07:54:11 AM ET
--- NOTE | 2018-10-15 10:30 | Progress Note ---
Assessment and Plan Optimize HR - initiate IV lopressor. Pt may benefit from heparin gtt and/or anti-platelet therapy in setting of NSTEMI and paroxysmal AFib. However, pt with reported history of hemorrhagic CVA in 03/2018 which required bore holes and craniotomy at [place]. Over the weekend, he was found to have acute ischemic CVA - ? embolic etiology. Pt also noted to have bilateral ischemic changes to his lower extremities and had an arterial duplex of his bilateral lower extremities that demonstrated acute thrombus in bilateral lower extremities - vascular is following. Pt with mild anemia and thrombocytopenia. No systemic AC at this time in the setting of all of theses issues. Consider hematology consultation per primary. Will obtain HIT panel and f/u CBC. QUIQUE ordered to r/o cardioembolic source for CVA and BLE thrombus. Will plan for QUIQUE tomorrow ~9:30AM. NPO after MN. The patient has been seen in conjunction with Dr. JAYCE Green who agrees with the assessment and plan of care. - Patient Problems (1) Altered mental state Current Visit: Yes Status: Acute Qualifiers: Altered mental status type: unspecified Qualified Code(s): R41.82 - Altered mental status, unspecified (2) Opiate overdose Current Visit: Yes Status: Suspected (3) Acute CVA (cerebrovascular accident) Current Visit: Yes Status: Acute (4) Cardiomyopathy Current Visit: Yes Status: Chronic (5) Paroxysmal atrial fibrillation Current Visit: Yes Status: Acute (6) Seizure Current Visit: Yes Status: Acute (7) Acute respiratory failure Current Visit: Yes Status: Acute (8) NSTEMI (non-ST elevated myocardial infarction) Current Visit: Yes Status: Acute (9) 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 Current Visit: Yes Status: Chronic (10) Hypotension Current Visit: Yes Status: Resolved Qualifiers: Hypotension type: unspecified hypotension type Qualified Code(s): I95.9 - Hypotension, unspecified (11) Acute renal insufficiency Current Visit: Yes Status: Acute (12) Lactic acid acidosis Current Visit: Yes Status: Acute (13) Diabetes mellitus with hyperglycemia Current Visit: Yes Status: Acute (14) Elevated liver enzymes Current Visit: Yes Status: Acute (15) History of hepatitis Current Visit: Yes Status: Chronic (16) History of rheumatic fever as a child Current Visit: Yes Status: Chronic (17) Polysubstance abuse Current Visit: Yes Status: Chronic (18) Tobacco use Current Visit: Yes Status: Chronic (19) Sepsis Current Visit: Yes Status: Acute Qualifiers: Sepsis type: sepsis due to unspecified organism Qualified Code(s): A41.9 - Sepsis, unspecified organism (20) Arterial thrombosis Current Visit: Yes Status: Acute Subjective Date of service: 10/15/18 Principal diagnosis: Ac hypercapnic hypoxemic Resp failure; Drug OD; AE-COPD; NINOSKA; Seizures Interval history: Pt resting in bed, agitated, nodding to commands. in SR/ST with freq PACs and PVCs on telemetry, bouts of AFib RVR noted overnight. currently weaned off vasopressors. Objective Last Vital Signs Temp 98.7 F 10/15/18 08:00 Pulse 122 H 10/15/18 08:40 Resp 25 H 10/15/18 08:40 BP 120/53 10/15/18 08:19 Pulse Ox 94 10/15/18 08:19 - Physical Examination General: Other (intubated) Neck: Positive: neck supple Cardiac: Positive: Regular Rhythm, S1/S2, Tachycardia Lungs: Positive: Decreased Breath Sounds, Ventilated Respirations Neuro: Positive: Other (intubated) Abdomen: Positive: Soft. Negative: Tender Skin: Negative: Rash Extremities: Present: Other (chronic skin changes noted bilaterally. Patient has mottling of the left leg just proximal to the ankle) - Labs and Meds CBC 10/15/18 Range/Units 06:20 Hgb 11.7 L (11.8-15.2) gm/dl Hct 34.7 L (35.5-45.6) % Plt Count 151 (140-440) K/mm3 - Imaging and Cardiology EKG: report reviewed, image reviewed Echo: report reviewed (TDS, mild LVH, severe global hypokinesis of LV, unable to estimate LVEF, trace TR. ) - Telemetry EKG Rhythm: Sinus Tachycardia - EKG Sinus rhythms and dysrhythmias: sinus rhythm - Allied health notes Allied health notes reviewed: nursing
--- NOTE | 2018-10-15 10:52 | Progress Note ---
Assessment and Plan Cultures: Blood culture 10/11/2018 no growth Sputum culture 10/12/2018 no growth today Urine culture 10/11/2018 neg Assessment: 58 y/o male with history of hemorrhagic CVA in 03/2018, rheumatic fever as a child, asthma, HTN, DM, hepatitis, tobacco use, polysubstance abuse; admitted on 10/10/2018 due to altered mental status: 1) Acute encephalopathy: Continuing, likely due to opioid overdoes 2) Sepis: Improved. Leukocytosis continuing. Low grade fever. Etiology most likely Left leg Ischemia. 3) LLL pneumonia with mucous plugging on CTA 4) Elevated LFTs from sepsis 5) NINOSKA: creatinine now 0.7 6) PVD: left leg ischemia.. Dry gangrene. Possible amputation. Vascular following Recommendations: - follow-up blood cultures and sputum cultures - continue unasyn renally adjusted, D3 of D7 -vascular surgery on board. [facility] M: [phone] O:[phone] Subjective Date of service: 10/15/18 Principal diagnosis: Ac hypercapnic hypoxemic Resp failure; Drug OD; AE-COPD; NINOSKA; Seizures Interval history: Patient seen and examined. Intubated, opens eyes to name only. Not following any commands. Family member at bedside. Objective - Exam Narrative Exam: General: intubated sedated Eyes: anicteric sclerae, moist conjunctivae; no lid-lag; PERRLA HENT: Atraumatic; oropharynx +ETT +OGT Neck: Trachea midline; supple, no thyromegaly or lymphadenopathy Lungs: art rhonchi CV: tachycardic Abdomen: Soft, mild tenderness Extremities: No peripheral edema . PVD - left leg ischemia. Skin: no rash Psych:lethargic Neuro: lethargic - Constitutional Vitals: Vital Signs Temp Pulse Resp BP Pulse Ox 98.7 F 122 H 25 H 120/53 94 10/15/18 08:00 10/15/18 08:40 10/15/18 08:40 10/15/18 08:19 10/15/18 08:19 Temperature -Last 24 Hours Temperature 98.7 F Temperature 100.7 F Temperature 99.0 F Temperature 98.8 F Temperature 99.6 F Temperature 99.9 F - Labs CBC & Chem 7: 10/15/18 12:00 10/15/18 12:00 Labs: Abnormal lab results 10/14/18 10/14/18 10/14/18 Range/Units 10:54 12:20 18:30 Hgb (11.8-15.2) gm/dl Hct (35.5-45.6) % POC ABG pH (7.35-7.45) POC ABG pCO2 (35-45) POC ABG pO2 (80-105) POC Glucose 173 H 158 H 108 H (70-105) 10/14/18 10/15/18 10/15/18 Range/Units 21:54 02:12 04:19 Hgb (11.8-15.2) gm/dl Hct (35.5-45.6) % POC ABG pH 7.491 H (7.35-7.45) POC ABG pCO2 45.1 H (35-45) POC ABG pO2 (80-105) POC Glucose 110 H 164 H (70-105) 10/15/18 10/15/18 10/15/18 Range/Units 04:55 05:43 06:20 Hgb 11.7 L (11.8-15.2) gm/dl Hct 34.7 L (35.5-45.6) % POC ABG pH (7.35-7.45) POC ABG pCO2 47.3 H (35-45) POC ABG pO2 78 L (80-105) POC Glucose 250 H (70-105)
--- NOTE | 2018-10-15 11:34 | Progress Note ---
Assessment and Plan Possible acute/subacute right FT CVA - Initial CT head had no acute finding - Not a candidate for tPA, cont to monitor off aspirin per teleneurology - wait for MRI brain acute thrombus in bilateral lower extremitie - vascular consulted, will wait for recommendation - will not start heparin drip due to acute CVA Severe sepsis with shock -Probably secondary to pneumonia -On sepsis protocol -On IV broad-spectrum antibiotics with Unasyn -wean off Levophed -Blood and sputum cultures negative Acute respiratory failure with hypoxia and hypercapnia -Probably secondary to acute COPD/asthma exacerbation -Status post intubation on mechanical ventilator -Pulmonology consulted Hyperglycemia, not in DKA -s/p insulin drip, cont SSI for now with TF Acute toxic/metabolic encephalopathy -Secondary to drug overdose versus sepsis/DKA -Head CT scan negative Seizure -s/p IV lorazepam drip, will defer to neurology for AED - EEG pending Elevated troponin -Probably secondary to demand ischemia from acute process and underlying CHF -Echocardiogram for further evaluation - Ef 25-30% -Cardiology consulted, recommended medical Mx for now, Acute systolic CHF, Ef 25-30% - monitor ins/os, medical Mx for now, cardiology following ARF, due to vasomotor nephropathy, resolved -On IV fluid, will cont to monitor creatinine level Hyperkalemia, resolved Abnormal LFT -Probably due to sepsis and chronic hepatitis C virus infection -Abdominal US showed no sign of cirrhosis Severe protein calorie malnutrition -Dietitian consulted DVT prophylaxis with heparin and GI prophylaxis with famotidine Disposition: Patient will be monitored at the ICU I spent 45 minutes providing critical care to this seriously ill patient who requires frequent reassessments of his cardiovascular, respiratory and neurologic status. Discussed with family/RN Brief History: Patient is a 58-year-old male who was brought to the ED by EMS on account of altered mental status. It was reported that patient was found unresponsive by friends and family. Patient's last known well time was 10:30 PM on 10/10/18. He was given Narcan by EMS en route to the hospital with minimal response. Patient began to seize as EMS pulled into the hospital. Per report, family told EMS that the patient overdosed and has been using Dilaudid. He was intubated in the ER to protect airway, admitted to ICU for further evaluation. Subjective Date of service: 10/15/18 Principal diagnosis: Ac hypercapnic hypoxemic Resp failure; Drug OD; AE-COPD; NINOSKA; Seizures Interval history: Patient seen and examined' Noted o/n event, discussed with RN/Pulmonary Patient remained intubated and sedated going for MRI brain today Objective - Exam Narrative Exam: General appearance: Present: no acute distress, other (intubated, opens eyes to voice) - EENT Eyes: Present: irregular pupil (sluggish) ENT: other (patient is intubated) - Neck Neck: Present: supple - Respiratory Respiratory effort: normal Respiratory: bilateral: CTA - Cardiovascular Rhythm: regular (with tachycardia) Heart Sounds: Present: S1 & S2 - Extremities Extremity abnormal: b/l LE cyanosis (ischemic changes to the right foot and left foot ) - Abdominal General gastrointestinal: Present: soft, non-distended, normal bowel sounds Male genitourinary: Present: deferred - Integumentary Integumentary: Present: clear, warm, dry - Musculoskeletal Musculoskeletal: other (unable to assess because patient is intubated and sedated) - Psychiatric Psychiatric: other (unable to assess because patient is intubated and sedated) - Neurologic Neurologic: focal deficits (the patient is not moving his left upper or lower extremities) - Constitutional Vitals: Vital Signs - 12hr 10/14/18 10/14/18 10/15/18 23:38 23:45 00:00 Temperature 99.0 F Pulse Rate 111 H 112 H 116 H Pulse Rate [ Anterior Bilateral Throughout] Pulse Rate [ From Monitor] Respiratory 25 H 25 H Rate Respiratory Rate [Anterior Bilateral Throughout] Blood Pressure 99/58 92/54 92/55 O2 Sat by Pulse 94 92 93 Oximetry 10/15/18 10/15/18 10/15/18 00:05 00:15 00:30 Temperature Pulse Rate 109 H 110 H 109 H Pulse Rate [ Anterior Bilateral Throughout] Pulse Rate [ From Monitor] Respiratory 26 H 25 H 25 H Rate Respiratory Rate [Anterior Bilateral Throughout] Blood Pressure 99/58 91/51 88/45 O2 Sat by Pulse 95 93 94 Oximetry 10/15/18 10/15/18 10/15/18 00:45 01:00 01:15 Temperature Pulse Rate 108 H 106 H 109 H Pulse Rate [ Anterior Bilateral Throughout] Pulse Rate [ From Monitor] Respiratory 25 H 25 H 25 H Rate Respiratory Rate [Anterior Bilateral Throughout] Blood Pressure 89/56 91/62 95/51 O2 Sat by Pulse 93 94 94 Oximetry 10/15/18 10/15/18 10/15/18 01:30 01:45 02:00 Temperature Pulse Rate 106 H 107 H 107 H Pulse Rate [ 108 H Anterior Bilateral Throughout] Pulse Rate [ From Monitor] Respiratory 25 H 25 H 25 H Rate Respiratory 25 H Rate [Anterior Bilateral Throughout] Blood Pressure 91/52 92/54 97/55 O2 Sat by Pulse 93 94 94 Oximetry 10/15/18 10/15/18 10/15/18 02:15 02:30 02:37 Temperature Pulse Rate 108 H 107 H 108 H Pulse Rate [ Anterior Bilateral Throughout] Pulse Rate [ From Monitor] Respiratory 24 25 H Rate Respiratory Rate [Anterior Bilateral Throughout] Blood Pressure 99/55 94/54 94/54 O2 Sat by Pulse 94 94 96 Oximetry 10/15/18 10/15/18 10/15/18 02:45 03:00 03:15 Temperature Pulse Rate 106 H 108 H 112 H Pulse Rate [ Anterior Bilateral Throughout] Pulse Rate [ From Monitor] Respiratory 25 H 25 H 25 H Rate Respiratory Rate [Anterior Bilateral Throughout] Blood Pressure 92/54 96/55 86/55 O2 Sat by Pulse 94 93 93 Oximetry 10/15/18 10/15/18 10/15/18 03:30 03:45 04:00 Temperature 100.7 F H Pulse Rate 104 H 103 H 102 H Pulse Rate [ Anterior Bilateral Throughout] Pulse Rate [ From Monitor] Respiratory 25 H 25 H 25 H Rate Respiratory Rate [Anterior Bilateral Throughout] Blood Pressure 91/55 90/52 96/56 O2 Sat by Pulse Oximetry 10/15/18 10/15/18 10/15/18 04:15 04:30 04:45 Temperature Pulse Rate 103 H 102 H 100 H Pulse Rate [ Anterior Bilateral Throughout] Pulse Rate [ From Monitor] Respiratory 25 H 25 H 25 H Rate Respiratory Rate [Anterior Bilateral Throughout] Blood Pressure 98/55 100/56 97/58 O2 Sat by Pulse 94 95 Oximetry 10/15/18 10/15/18 10/15/18 04:53 05:00 05:15 Temperature Pulse Rate 102 H 102 H 100 H Pulse Rate [ Anterior Bilateral Throughout] Pulse Rate [ From Monitor] Respiratory 25 H 25 H Rate Respiratory Rate [Anterior Bilateral Throughout] Blood Pressure 97/58 94/56 99/56 O2 Sat by Pulse 96 94 Oximetry 10/15/18 10/15/18 10/15/18 05:30 05:45 06:00 Temperature Pulse Rate 102 H 99 H 99 H Pulse Rate [ Anterior Bilateral Throughout] Pulse Rate [ From Monitor] Respiratory 25 H 25 H 25 H Rate Respiratory Rate [Anterior Bilateral Throughout] Blood Pressure 105/57 102/57 101/56 O2 Sat by Pulse 94 93 Oximetry 10/15/18 10/15/18 10/15/18 06:15 06:30 06:45 Temperature Pulse Rate 99 H 100 H 102 H Pulse Rate [ Anterior Bilateral Throughout] Pulse Rate [ From Monitor] Respiratory 25 H 25 H 25 H Rate Respiratory Rate [Anterior Bilateral Throughout] Blood Pressure 98/58 97/53 103/55 O2 Sat by Pulse 93 94 93 Oximetry 10/15/18 10/15/18 10/15/18 07:00 07:15 07:30 Temperature Pulse Rate 104 H 107 H 111 H Pulse Rate [ Anterior Bilateral Throughout] Pulse Rate [ From Monitor] Respiratory 25 H 25 H 24 Rate Respiratory Rate [Anterior Bilateral Throughout] Blood Pressure 112/58 119/63 123/62 O2 Sat by Pulse 92 93 93 Oximetry 10/15/18 10/15/18 10/15/18 07:45 08:00 08:15 Temperature 98.7 F Pulse Rate 113 H 111 H 116 H Pulse Rate [ Anterior Bilateral Throughout] Pulse Rate [ 115 H From Monitor] Respiratory 25 H 25 H 25 H Rate Respiratory Rate [Anterior Bilateral Throughout] Blood Pressure 118/63 104/55 120/53 O2 Sat by Pulse 93 94 92 Oximetry 10/15/18 10/15/18 10/15/18 08:19 08:22 08:30 Temperature Pulse Rate 114 H 117 H Pulse Rate [ 114 H Anterior Bilateral Throughout] Pulse Rate [ From Monitor] Respiratory 15 25 H Rate Respiratory 20 Rate [Anterior Bilateral Throughout] Blood Pressure 120/53 113/59 O2 Sat by Pulse 94 91 Oximetry 10/15/18 10/15/18 10/15/18 08:40 08:45 09:00 Temperature Pulse Rate 124 H 119 H Pulse Rate [ 122 H Anterior Bilateral Throughout] Pulse Rate [ From Monitor] Respiratory 26 H 25 H Rate Respiratory 25 H Rate [Anterior Bilateral Throughout] Blood Pressure 126/56 118/58 O2 Sat by Pulse 94 92 Oximetry 10/15/18 10/15/18 10/15/18 09:15 09:30 09:45 Temperature Pulse Rate 119 H 115 H 110 H Pulse Rate [ Anterior Bilateral Throughout] Pulse Rate [ From Monitor] Respiratory 26 H 21 19 Rate Respiratory Rate [Anterior Bilateral Throughout] Blood Pressure 109/55 116/57 120/63 O2 Sat by Pulse 93 95 Oximetry 10/15/18 10/15/18 10/15/18 10:00 11:05 11:15 Temperature Pulse Rate 107 H 107 H 110 H Pulse Rate [ Anterior Bilateral Throughout] Pulse Rate [ From Monitor] Respiratory 15 24 Rate Respiratory Rate [Anterior Bilateral Throughout] Blood Pressure O2 Sat by Pulse 100 95 Oximetry - Labs CBC & Chem 7: 10/15/18 12:00 10/15/18 12:00 Labs: Abnormal lab results 10/14/18 10/14/18 10/14/18 Range/Units 12:20 18:30 21:54 Hgb (11.8-15.2) gm/dl Hct (35.5-45.6) % POC ABG pH (7.35-7.45) POC ABG pCO2 (35-45) POC ABG pO2 (80-105) POC Glucose 158 H 108 H 110 H (70-105) 10/15/18 10/15/18 10/15/18 Range/Units 02:12 04:19 04:55 Hgb (11.8-15.2) gm/dl Hct (35.5-45.6) % POC ABG pH 7.491 H (7.35-7.45) POC ABG pCO2 45.1 H 47.3 H (35-45) POC ABG pO2 78 L (80-105) POC Glucose 164 H (70-105) 10/15/18 10/15/18 Range/Units 05:43 06:20 Hgb 11.7 L (11.8-15.2) gm/dl Hct 34.7 L (35.5-45.6) % POC ABG pH (7.35-7.45) POC ABG pCO2 (35-45) POC ABG pO2 (80-105) POC Glucose 250 H (70-105)
[2018-10-15] MEDS: ASPIRIN PO SCH (11:52)
[2018-10-15] MEDS: PEPCID PO SCH ×2 (11:55→21:43)
[2018-10-15] MEDS: SODIUM CHLORIDE FLUSH SYRINGE 10 ML IV SCH ×2 (11:55→21:31)
[2018-10-15] MEDS: LOPRESSOR IV SCH ×2 (11:55→17:21)
--- NOTE | 2018-10-15 12:14 | Magnetic Resonance Report ---
MRI BRAIN WITHOUT CONTRAST: 10/15/18 CLINICAL: Stroke COMPARISON: 10/13/18 and 10/11/18 CT Head TECHNIQUE: Axial diffusion, T1, T2, gradient echo T2*, coronal and axial FLAIR and sagittal T1 sequences on a 1.5 [place] magnet. FINDINGS: The frontal and temporal lobe sulci and ventricles are large for age. Multilobar multifocal restricted diffusion involving right frontal lobe, right parietal lobe, left frontal lobe, left basal ganglia, bilateral occipital lobes and bilateral cerebellar lobes. The largest areas of restricted diffusion are in the right frontal and parietal lobes and involve both cortex and white matter. Smaller foci restricted diffusion in left frontal lobe cortex small foci restricted diffusion in the left putamen and left thalamus. Restricted diffusion involving the lateral occipital lobe cortex. Right cerebellar restricted diffusion at the margin of an older right cerebellar infarct measuring approximately 2.3 x 2.1 cm. This infarct is hypointense on FLAIR and hyperintense on T2. A smaller similar older infarct of the left cerebellum with restricted diffusion at its margin. Hemosiderin deposition at the center of the larger right frontal and parietal lobe infarcts. This is apparent on the gradient echo sequence. Hemosiderin deposition is also evident at the margins of the older late subacute cerebellar infarcts. No other hemorrhage is identified. No extra axial collection. Mild mass effect involves the swollen cortex of the right frontal and parietal lobes. However, no midline shift. Normal pituitary and optic chiasm. The brainstem is normal normal. Vascular flow voids are grossly intact. Sphenoid sinus mucoperiosteal thickening. No air-fluid levels. The rest of the sinuses are clear. The orbits, and soft tissues are normal. Normal calvarium. A large surgical defect in the midline posterior fossa. IMPRESSION: Numerous acute/subacute multilobar infarcts as described above involving the cerebrum and cerebellum. Hemorrhagic transformation of the largest infarcts that involve the right frontal and biparietal lobes and evidence of older hemorrhage at the margin of older cerebellar infarcts. Postsurgical changes in the posterior fossa and several small acute/subacute cerebellar infarcts at the margin of larger late subacute infarct.
--- NOTE | 2018-10-15 12:20 | Magnetic Resonance Report ---
MRA HEAD WITHOUT CONTRAST: Is CLINICAL: Stroke. TECHNIQUE: Axial 3-D [id number] MR angiography of the kaibab of Bruner with review of axial source images. FINDINGS: Intact kaibab of Bruner with no aneurysm or occlusion. Symmetric blood flow in the anterior, middle and posterior cerebral arteries. The basilar is patent but small and tortuous and vertebral arteries are patent but small and tortuous. IMPRESSION: Small and tortuous basilar and vertebral arteries. The study is otherwise negative.
[2018-10-15 12:31] LABS: Hemoglobin 11.5 gm/dl (11.8-15.2); Mean Corpuscular HGB Conc 34 % (32-34); Mean Corpuscular Volume 92 fl (84-94); Platelet Count 145 K/mm3 (140-440); Red Cell Distribution Width 13.7 % (13.2-15.2)
--- NOTE | 2018-10-15 12:57 | Event Note ---
Date: 10/15/18 Pt's daughter spoken with via telephone ([phone]). Updated on pt's assessment and plan of care. QUIQUE discussed. Indications, potential risks and benefits of QUIQUE reviewed with pt's daughter and she is agreeable to QUIQUE in AM. Telephone consent obtained. Erika STUART NP / DR. JAYCE GLEASON
[2018-10-15 12:58] LABS: BUN/Creatinine Ratio 24; Blood Urea Nitrogen 17 mg/dL (9-20); Calcium 7.3 mg/dL (8.4-10.2); Hemolysis Index 3
--- NOTE | 2018-10-15 14:01 | Progress Note ---
Assessment and Plan Acute hypoxemic respiratory failure, on mechanical ventilator support. Drug overdose. Acute chronic obstructive pulmonary disease exacerbation. Witnessed seizure en route. Acute kidney injury. Leukocytosis. Hypercapnia. Hyperkalemia. Metabolic acidosis. Lactic acidosis. Non-ST elevation myocardial infarction. Elevated serum transaminases. 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 - discussed care plan with vascular team - sedation target for RASS 0 to -1 (off sedation now) - continue bronchodilators with pulmonary hygiene per RT - continue GI & VTE prophylaxis - continue to wean supplemental oxygen to keep O2 sats 88-90% - continue lung protective strategies - azotemia per nephrology - Daily ABGs/CXR for now - VAP bundle addressed - Continue cardioprotective measures - Replete electrolytes as indicated - Tracheal aspirate, blood cultures remain negative to date - Continue bronchodilators with pulmonary hygiene per RT - Monitor renal indices closely - Avoid nephrotoxic agents, adjust all medications for CrCL - Strict intake and output monitoring - Tube feedings - Aspiration precautions - Accuchecks with glycemic control. Target glucose of 140-180 mg/dL - Maintenance of sleep -wake cycle - Mobility as tolerated by hemodynamics - Influenza and pneumonia vaccination per protocol ..care plan discussed at length with RN/RT at the bedside ..discussed in ICU-IDT rounds PROGNOSIS: GUARDED CONDITION: CRITICAL CODE STATUS: FULL CODE The high probability of a clinically significant, sudden or life-threatening deterioration of the [respiratory, neurology, renal] system(s) required my full and direct attention, intervention and personal management. The aggregate critical care time was [34] minutes without overlap. Time includes spent on; [x] Data Review and interpretation [x] Patient assessment and monitoring of vital signs [x] Documentation [x] Medication orders and management Subjective Date of service: 10/15/18 Principal diagnosis: Ac hypercapnic hypoxemic Resp failure; Drug OD; AE-COPD; NINOSKA; Seizures Interval history: Patient is seen today for: Acute hypoxemic respiratory failure, on mechanical ventilator support; Drug overdose; Acute chronic obstructive pulmonary disease exacerbation; Witnessed seizure en route; Acute kidney injury; Leukocytosis; Hypercapnia. Seen and examined at bedside; 24-hour events reviewed; nursing and respiratory care staff consulted; no adverse overnight events reported to me; remains on MVS; appropriately responsive despite CVA; No N/V/F/C; Lopressor added for rate control; Objective Vital Signs - 12hr 10/15/18 10/15/18 10/15/18 02:15 02:30 02:37 Temperature Pulse Rate 108 H 107 H 108 H Pulse Rate [ Anterior Bilateral Throughout] Pulse Rate [ From Monitor] Respiratory 24 25 H Rate Respiratory Rate [Anterior Bilateral Throughout] Blood Pressure 99/55 94/54 94/54 O2 Sat by Pulse 94 94 96 Oximetry 10/15/18 10/15/18 10/15/18 02:45 03:00 03:15 Temperature Pulse Rate 106 H 108 H 112 H Pulse Rate [ Anterior Bilateral Throughout] Pulse Rate [ From Monitor] Respiratory 25 H 25 H 25 H Rate Respiratory Rate [Anterior Bilateral Throughout] Blood Pressure 92/54 96/55 86/55 O2 Sat by Pulse 94 93 93 Oximetry 10/15/18 10/15/18 10/15/18 03:30 03:45 04:00 Temperature 100.7 F H Pulse Rate 104 H 103 H 102 H Pulse Rate [ Anterior Bilateral Throughout] Pulse Rate [ From Monitor] Respiratory 25 H 25 H 25 H Rate Respiratory Rate [Anterior Bilateral Throughout] Blood Pressure 91/55 90/52 96/56 O2 Sat by Pulse Oximetry 10/15/18 10/15/18 10/15/18 04:15 04:30 04:45 Temperature Pulse Rate 103 H 102 H 100 H Pulse Rate [ Anterior Bilateral Throughout] Pulse Rate [ From Monitor] Respiratory 25 H 25 H 25 H Rate Respiratory Rate [Anterior Bilateral Throughout] Blood Pressure 98/55 100/56 97/58 O2 Sat by Pulse 94 95 Oximetry 10/15/18 10/15/18 10/15/18 04:53 05:00 05:15 Temperature Pulse Rate 102 H 102 H 100 H Pulse Rate [ Anterior Bilateral Throughout] Pulse Rate [ From Monitor] Respiratory 25 H 25 H Rate Respiratory Rate [Anterior Bilateral Throughout] Blood Pressure 97/58 94/56 99/56 O2 Sat by Pulse 96 94 Oximetry 10/15/18 10/15/18 10/15/18 05:30 05:45 06:00 Temperature Pulse Rate 102 H 99 H 99 H Pulse Rate [ Anterior Bilateral Throughout] Pulse Rate [ From Monitor] Respiratory 25 H 25 H 25 H Rate Respiratory Rate [Anterior Bilateral Throughout] Blood Pressure 105/57 102/57 101/56 O2 Sat by Pulse 94 93 Oximetry 10/15/18 10/15/18 10/15/18 06:15 06:30 06:45 Temperature Pulse Rate 99 H 100 H 102 H Pulse Rate [ Anterior Bilateral Throughout] Pulse Rate [ From Monitor] Respiratory 25 H 25 H 25 H Rate Respiratory Rate [Anterior Bilateral Throughout] Blood Pressure 98/58 97/53 103/55 O2 Sat by Pulse 93 94 93 Oximetry 10/15/18 10/15/18 10/15/18 07:00 07:15 07:30 Temperature Pulse Rate 104 H 107 H 111 H Pulse Rate [ Anterior Bilateral Throughout] Pulse Rate [ From Monitor] Respiratory 25 H 25 H 24 Rate Respiratory Rate [Anterior Bilateral Throughout] Blood Pressure 112/58 119/63 123/62 O2 Sat by Pulse 92 93 93 Oximetry 10/15/18 10/15/18 10/15/18 07:45 08:00 08:15 Temperature 98.7 F Pulse Rate 113 H 111 H 116 H Pulse Rate [ Anterior Bilateral Throughout] Pulse Rate [ 115 H From Monitor] Respiratory 25 H 25 H 25 H Rate Respiratory Rate [Anterior Bilateral Throughout] Blood Pressure 118/63 104/55 120/53 O2 Sat by Pulse 93 94 92 Oximetry 10/15/18 10/15/18 10/15/18 08:19 08:22 08:30 Temperature Pulse Rate 114 H 117 H Pulse Rate [ 114 H Anterior Bilateral Throughout] Pulse Rate [ From Monitor] Respiratory 15 25 H Rate Respiratory 20 Rate [Anterior Bilateral Throughout] Blood Pressure 120/53 113/59 O2 Sat by Pulse 94 91 Oximetry 10/15/18 10/15/18 10/15/18 08:40 08:45 09:00 Temperature Pulse Rate 124 H 119 H Pulse Rate [ 122 H Anterior Bilateral Throughout] Pulse Rate [ From Monitor] Respiratory 26 H 25 H Rate Respiratory 25 H Rate [Anterior Bilateral Throughout] Blood Pressure 126/56 118/58 O2 Sat by Pulse 94 92 Oximetry 10/15/18 10/15/18 10/15/18 09:15 09:30 09:45 Temperature Pulse Rate 119 H 115 H 110 H Pulse Rate [ Anterior Bilateral Throughout] Pulse Rate [ From Monitor] Respiratory 26 H 21 19 Rate Respiratory Rate [Anterior Bilateral Throughout] Blood Pressure 109/55 116/57 120/63 O2 Sat by Pulse 93 95 Oximetry 10/15/18 10/15/18 10/15/18 10:00 11:05 11:15 Temperature Pulse Rate 107 H 107 H 110 H Pulse Rate [ Anterior Bilateral Throughout] Pulse Rate [ From Monitor] Respiratory 15 24 Rate Respiratory Rate [Anterior Bilateral Throughout] Blood Pressure O2 Sat by Pulse 100 95 Oximetry 10/15/18 10/15/18 10/15/18 11:31 11:45 11:55 Temperature Pulse Rate 112 H 110 H 120 H Pulse Rate [ Anterior Bilateral Throughout] Pulse Rate [ From Monitor] Respiratory 19 24 Rate Respiratory Rate [Anterior Bilateral Throughout] Blood Pressure 130/94 135/78 O2 Sat by Pulse 94 97 Oximetry 10/15/18 10/15/18 10/15/18 12:00 12:01 12:15 Temperature Pulse Rate 99 H 92 H Pulse Rate [ Anterior Bilateral Throughout] Pulse Rate [ 94 H From Monitor] Respiratory 25 H 16 17 Rate Respiratory Rate [Anterior Bilateral Throughout] Blood Pressure 112/59 112/59 O2 Sat by Pulse 95 93 Oximetry 10/15/18 10/15/18 10/15/18 12:30 12:45 13:00 Temperature Pulse Rate 91 H 91 H 94 H Pulse Rate [ Anterior Bilateral Throughout] Pulse Rate [ From Monitor] Respiratory 17 17 22 Rate Respiratory Rate [Anterior Bilateral Throughout] Blood Pressure 113/55 105/52 108/60 O2 Sat by Pulse 95 95 Oximetry 10/15/18 13:28 Temperature Pulse Rate 106 H Pulse Rate [ Anterior Bilateral Throughout] Pulse Rate [ From Monitor] Respiratory Rate Respiratory Rate [Anterior Bilateral Throughout] Blood Pressure 98/54 O2 Sat by Pulse 98 Oximetry Constitutional: no acute distress, other (middle aged but chronically ill looking CM; Atraumatic) Eyes: non-icteric ENT: oropharynx moist, other (ETT 23 cm SHELBI) Neck: supple, no lymphadenopathy, no JVD Effort: mildly labored Ascultation: Bilateral: diminished breath sounds, rhonchi Percussion: Bilateral: not dull Cardiovascular: irregular rhythm, other (No R/M) Gastrointestinal: normoactive bowel sounds, soft, non-tender, non-distended Integumentary: other (poor turgor) Extremities: no cyanosis, no edema, pink and warm, pulses normal, no ischemia or petechiae Neurologic: unable to assess Psychiatric: other (unable to assess re: AMS) CBC and BMP: 10/15/18 12:00 10/15/18 12:00 ABG, PT/INR, D-dimer: ABG POC ABG pH 7.449 (7.35-7.45) 10/15/18 04:55 POC ABG pCO2 47.3 (35-45) H 10/15/18 04:55 POC ABG pO2 78 (80-105) L 10/15/18 04:55 POC ABG HCO3 32.8 (22-26 mml/L) 10/15/18 04:55 POC ABG Total CO2 34 (23-27mmol/L) 10/15/18 04:55 POC ABG O2 Sat 96 10/15/18 04:55 PT/INR, D-dimer PT 14.7 Sec. (12.2-14.9) 10/11/18 08:29 INR 1.08 (0.87-1.13) 10/11/18 08:29 Abnormal lab findings: Abnormal Labs 10/11/18 10/11/18 10/11/18 00:16 00:16 00:16 WBC 20.1 H Hgb Hct MCV 98 H RDW 15.4 H Plt Count [place] % (Auto) [place] # Seg Neutrophils % Seg Neuts % (Manual) Lymphocytes % (Manual) 5.0 L Monocytes % (Manual) 25.0 H Seg Neutrophils # Seg Neutrophils # Man 9.2 H Lymphocytes # (Manual) 1.0 L Monocytes # (Manual) 5.0 H APTT POC ABG pH POC ABG pCO2 POC ABG pO2 Sodium Potassium 5.8 H Chloride Carbon Dioxide 17 L BUN Creatinine 2.2 H Glucose 348 H POC Glucose Lactic Acid 13.70 H* Calcium 7.7 L Phosphorus Total Bilirubin 1.50 H AST 179 H ALT 110 H Total Creatine Kinase 324 H CK-MB (CK-2) Troponin T 0.257 H* Total Protein 5.9 L Albumin 2.9 L HDL Cholesterol 19 L Salicylates Acetaminophen 10/11/18 10/11/18 10/11/18 00:16 00:16 01:21 WBC Hgb Hct MCV RDW Plt Count [place] % (Auto) [place] # Seg Neutrophils % Seg Neuts % (Manual) Lymphocytes % (Manual) Monocytes % (Manual) Seg Neutrophils # Seg Neutrophils # Man Lymphocytes # (Manual) Monocytes # (Manual) APTT POC ABG pH 7.110 L POC ABG pCO2 50.3 H POC ABG pO2 65 L Sodium Potassium Chloride Carbon Dioxide BUN Creatinine Glucose POC Glucose Lactic Acid Calcium Phosphorus Total Bilirubin AST ALT Total Creatine Kinase CK-MB (CK-2) Troponin T Total Protein Albumin HDL Cholesterol Salicylates < 0.3 L Acetaminophen < 5.0 L 10/11/18 10/11/18 10/11/18 01:22 03:27 04:14 WBC Hgb Hct MCV RDW Plt Count [place] % (Auto) [place] # Seg Neutrophils % Seg Neuts % (Manual) Lymphocytes % (Manual) Monocytes % (Manual) Seg Neutrophils # Seg Neutrophils # Man Lymphocytes # (Manual) Monocytes # (Manual) APTT POC ABG pH POC ABG pCO2 POC ABG pO2 Sodium Potassium Chloride Carbon Dioxide BUN Creatinine Glucose POC Glucose Lactic Acid 8.50 H* 4.10 H* Calcium Phosphorus 4.90 H Total Bilirubin AST ALT Total Creatine Kinase CK-MB (CK-2) Troponin T Total Protein Albumin HDL Cholesterol Salicylates Acetaminophen 10/11/18 10/11/18 10/11/18 04:14 04:14 04:14 WBC Hgb Hct MCV RDW Plt Count [place] % (Auto) [place] # Seg Neutrophils % Seg Neuts % (Manual) Lymphocytes % (Manual) Monocytes % (Manual) Seg Neutrophils # Seg Neutrophils # Man Lymphocytes # (Manual) Monocytes # (Manual) APTT POC ABG pH POC ABG pCO2 POC ABG pO2 Sodium Potassium 5.6 H Chloride Carbon Dioxide 19 L BUN Creatinine 1.6 H Glucose 329 H POC Glucose 328 H Lactic Acid Calcium 7.3 L Phosphorus Total Bilirubin AST ALT Total Creatine Kinase CK-MB (CK-2) Troponin T 1.130 H* D Total Protein Albumin HDL Cholesterol Salicylates Acetaminophen 10/11/18 10/11/18 10/11/18 05:10 05:32 05:58 WBC Hgb Hct MCV RDW Plt Count [place] % (Auto) [place] # Seg Neutrophils % Seg Neuts % (Manual) Lymphocytes % (Manual) Monocytes % (Manual) Seg Neutrophils # Seg Neutrophils # Man Lymphocytes # (Manual) Monocytes # (Manual) APTT POC ABG pH 7.259 L POC ABG pCO2 45.6 H POC ABG pO2 Sodium Potassium Chloride 108.6 H Carbon Dioxide 20 L BUN Creatinine 1.8 H Glucose 269 H POC Glucose 273 H Lactic Acid Calcium 7.0 L Phosphorus Total Bilirubin AST ALT Total Creatine Kinase CK-MB (CK-2) Troponin T Total Protein Albumin HDL Cholesterol Salicylates Acetaminophen 10/11/18 10/11/18 10/11/18 05:58 06:39 07:00 WBC Hgb Hct MCV RDW Plt Count [place] % (Auto) [place] # Seg Neutrophils % Seg Neuts % (Manual) Lymphocytes % (Manual) Monocytes % (Manual) Seg Neutrophils # Seg Neutrophils # Man Lymphocytes # (Manual) Monocytes # (Manual) APTT POC ABG pH POC ABG pCO2 POC ABG pO2 Sodium Potassium Chloride Carbon Dioxide BUN Creatinine Glucose POC Glucose 247 H Lactic Acid 3.20 H* 3.30 H* Calcium Phosphorus Total Bilirubin AST ALT Total Creatine Kinase CK-MB (CK-2) Troponin T Total Protein Albumin HDL Cholesterol Salicylates Acetaminophen 10/11/18 10/11/18 10/11/18 07:00 07:30 07:36 WBC Hgb Hct MCV RDW Plt Count [place] % (Auto) [place] # Seg Neutrophils % Seg Neuts % (Manual) Lymphocytes % (Manual) Monocytes % (Manual) Seg Neutrophils # Seg Neutrophils # Man Lymphocytes # (Manual) Monocytes # (Manual) APTT POC ABG pH POC ABG pCO2 POC ABG pO2 Sodium 146 H Potassium Chloride 112.1 H Carbon Dioxide 21 L BUN Creatinine 1.6 H Glucose 218 H POC Glucose Lactic Acid 3.20 H* Calcium 7.0 L Phosphorus Total Bilirubin AST ALT Total Creatine Kinase CK-MB (CK-2) Troponin T 1.020 H* Total Protein Albumin HDL Cholesterol Salicylates Acetaminophen 10/11/18 10/11/18 10/11/18 07:43 08:29 08:29 WBC Hgb 16.2 H Hct 49.9 H D MCV RDW Plt Count [place] % (Auto) [place] # Seg Neutrophils % Seg Neuts % (Manual) Lymphocytes % (Manual) Monocytes % (Manual) Seg Neutrophils # Seg Neutrophils # Man Lymphocytes # (Manual) Monocytes # (Manual) APTT POC ABG pH POC ABG pCO2 POC ABG pO2 Sodium Potassium Chloride Carbon Dioxide BUN Creatinine Glucose POC Glucose 174 H Lactic Acid 3.90 H* Calcium Phosphorus Total Bilirubin AST ALT Total Creatine Kinase CK-MB (CK-2) Troponin T Total Protein Albumin HDL Cholesterol Salicylates Acetaminophen 10/11/18 10/11/18 10/11/18 08:29 08:42 11:05 WBC Hgb Hct MCV RDW Plt Count [place] % (Auto) [place] # Seg Neutrophils % Seg Neuts % (Manual) Lymphocytes % (Manual) Monocytes % (Manual) Seg Neutrophils # Seg Neutrophils # Man Lymphocytes # (Manual) Monocytes # (Manual) APTT 24.1 L POC ABG pH POC ABG pCO2 POC ABG pO2 Sodium 147 H Potassium Chloride 113.3 H Carbon Dioxide 21 L BUN Creatinine 1.7 H Glucose 119 H POC Glucose 164 H Lactic Acid Calcium 7.7 L Phosphorus Total Bilirubin AST ALT Total Creatine Kinase CK-MB (CK-2) Troponin T Total Protein Albumin HDL Cholesterol Salicylates Acetaminophen 10/11/18 10/11/18 10/11/18 11:05 11:06 12:30 WBC Hgb Hct MCV RDW Plt Count [place] % (Auto) [place] # Seg Neutrophils % Seg Neuts % (Manual) Lymphocytes % (Manual) Monocytes % (Manual) Seg Neutrophils # Seg Neutrophils # Man Lymphocytes # (Manual) Monocytes # (Manual) APTT POC ABG pH POC ABG pCO2 POC ABG pO2 Sodium 148 H Potassium Chloride 113.4 H Carbon Dioxide 21 L BUN Creatinine 1.6 H Glucose 119 H POC Glucose 116 H Lactic Acid 3.20 H* Calcium 7.5 L Phosphorus Total Bilirubin AST ALT Total Creatine Kinase CK-MB (CK-2) Troponin T Total Protein Albumin HDL Cholesterol Salicylates Acetaminophen 10/11/18 10/11/18 10/11/18 12:30 13:16 13:25 WBC Hgb Hct MCV RDW Plt Count [place] % (Auto) [place] # Seg Neutrophils % Seg Neuts % (Manual) Lymphocytes % (Manual) Monocytes % (Manual) Seg Neutrophils # Seg Neutrophils # Man Lymphocytes # (Manual) Monocytes # (Manual) APTT POC ABG pH 7.247 L POC ABG pCO2 48.4 H POC ABG pO2 Sodium Potassium Chloride Carbon Dioxide BUN Creatinine Glucose POC Glucose 112 H Lactic Acid 2.70 H* Calcium Phosphorus Total Bilirubin AST ALT Total Creatine Kinase CK-MB (CK-2) Troponin T Total Protein Albumin HDL Cholesterol Salicylates Acetaminophen 10/11/18 10/11/18 10/11/18 14:41 15:27 16:13 WBC Hgb Hct MCV RDW Plt Count [place] % (Auto) [place] # Seg Neutrophils % Seg Neuts % (Manual) Lymphocytes % (Manual) Monocytes % (Manual) Seg Neutrophils # Seg Neutrophils # Man Lymphocytes # (Manual) Monocytes # (Manual) APTT POC ABG pH POC ABG pCO2 POC ABG pO2 Sodium Potassium Chloride Carbon Dioxide BUN Creatinine Glucose POC Glucose 127 H 141 H 134 H Lactic Acid Calcium Phosphorus Total Bilirubin AST ALT Total Creatine Kinase CK-MB (CK-2) Troponin T Total Protein Albumin HDL Cholesterol Salicylates Acetaminophen 10/11/18 10/11/18 10/11/18 17:18 18:23 19:38 WBC Hgb Hct MCV RDW Plt Count [place] % (Auto) [place] # Seg Neutrophils % Seg Neuts % (Manual) Lymphocytes % (Manual) Monocytes % (Manual) Seg Neutrophils # Seg Neutrophils # Man Lymphocytes # (Manual) Monocytes # (Manual) APTT POC ABG pH POC ABG pCO2 POC ABG pO2 Sodium 148 H Potassium Chloride 112.7 H Carbon Dioxide BUN 23 H Creatinine Glucose 143 H POC Glucose 132 H 129 H Lactic Acid Calcium 7.9 L Phosphorus Total Bilirubin AST ALT Total Creatine Kinase CK-MB (CK-2) Troponin T Total Protein Albumin HDL Cholesterol Salicylates Acetaminophen 10/11/18 10/11/18 10/11/18 20:19 20:36 21:01 WBC Hgb Hct MCV RDW Plt Count [place] % (Auto) [place] # Seg Neutrophils % Seg Neuts % (Manual) Lymphocytes % (Manual) Monocytes % (Manual) Seg Neutrophils # Seg Neutrophils # Man Lymphocytes # (Manual) Monocytes # (Manual) APTT POC ABG pH 7.281 L POC ABG pCO2 POC ABG pO2 Sodium Potassium Chloride Carbon Dioxide BUN Creatinine Glucose POC Glucose 129 H 151 H Lactic Acid Calcium Phosphorus Total Bilirubin AST ALT Total Creatine Kinase CK-MB (CK-2) Troponin T Total Protein Albumin HDL Cholesterol Salicylates Acetaminophen 10/11/18 10/11/18 10/12/18 22:04 23:15 01:18 WBC Hgb Hct MCV RDW Plt Count [place] % (Auto) [place] # Seg Neutrophils % Seg Neuts % (Manual) Lymphocytes % (Manual) Monocytes % (Manual) Seg Neutrophils # Seg Neutrophils # Man Lymphocytes # (Manual) Monocytes # (Manual) APTT POC ABG pH POC ABG pCO2 POC ABG pO2 Sodium Potassium Chloride Carbon Dioxide BUN Creatinine Glucose POC Glucose 147 H 143 H 158 H Lactic Acid Calcium Phosphorus Total Bilirubin AST ALT Total Creatine Kinase CK-MB (CK-2) Troponin T Total Protein Albumin HDL Cholesterol Salicylates Acetaminophen 10/12/18 10/12/1819 02:13 03:18 04:04 WBC Hgb Hct MCV RDW Plt Count [place] % (Auto) [place] # Seg Neutrophils % Seg Neuts % (Manual) Lymphocytes % (Manual) Monocytes % (Manual) Seg Neutrophils # Seg Neutrophils # Man Lymphocytes # (Manual) Monocytes # (Manual) APTT POC ABG pH POC ABG pCO2 POC ABG pO2 Sodium 147 H Potassium Chloride 111.1 H Carbon Dioxide BUN 30 H Creatinine 2.0 H Glucose 154 H POC Glucose 148 H 142 H Lactic Acid Calcium 8.1 L Phosphorus Total Bilirubin AST 269 H ALT 204 H Total Creatine Kinase 3647 H CK-MB (CK-2) 48.3 H Troponin T 2.230 H* D Total Protein 5.8 L Albumin 2.6 L HDL Cholesterol Salicylates Acetaminophen 10/12/18 10/12/18 10/12/18 04:04 04:08 04:19 WBC 24.4 H Hgb Hct MCV RDW Plt Count [place] % (Auto) [place] # Seg Neutrophils % Seg Neuts % (Manual) 32.0 L Lymphocytes % (Manual) Monocytes % (Manual) 8.0 H Seg Neutrophils # Seg Neutrophils # Man 7.8 H Lymphocytes # (Manual) Monocytes # (Manual) 2.0 H APTT POC ABG pH 7.317 L POC ABG pCO2 49.3 H POC ABG pO2 Sodium Potassium Chloride Carbon Dioxide BUN Creatinine Glucose POC Glucose 143 H Lactic Acid Calcium Phosphorus Total Bilirubin AST ALT Total Creatine Kinase CK-MB (CK-2) Troponin T Total Protein Albumin HDL Cholesterol Salicylates Acetaminophen 10/12/18 10/12/18 10/12/18 05:29 06:52 08:09 WBC Hgb Hct MCV RDW Plt Count [place] % (Auto) [place] # Seg Neutrophils % Seg Neuts % (Manual) Lymphocytes % (Manual) Monocytes % (Manual) Seg Neutrophils # Seg Neutrophils # Man Lymphocytes # (Manual) Monocytes # (Manual) APTT POC ABG pH 7.322 L POC ABG pCO2 46.5 H POC ABG pO2 Sodium Potassium Chloride Carbon Dioxide BUN Creatinine Glucose POC Glucose 196 H 226 H Lactic Acid Calcium Phosphorus Total Bilirubin AST ALT Total Creatine Kinase CK-MB (CK-2) Troponin T Total Protein Albumin HDL Cholesterol Salicylates Acetaminophen 10/12/18 10/12/18 10/12/18 08:38 10:03 15:50 WBC Hgb Hct MCV RDW Plt Count [place] % (Auto) [place] # Seg Neutrophils % Seg Neuts % (Manual) Lymphocytes % (Manual) Monocytes % (Manual) Seg Neutrophils # Seg Neutrophils # Man Lymphocytes # (Manual) Monocytes # (Manual) APTT POC ABG pH POC ABG pCO2 POC ABG pO2 Sodium Potassium Chloride Carbon Dioxide BUN Creatinine Glucose POC Glucose 138 H 148 H 221 H Lactic Acid Calcium Phosphorus Total Bilirubin AST ALT Total Creatine Kinase CK-MB (CK-2) Troponin T Total Protein Albumin HDL Cholesterol Salicylates Acetaminophen 10/12/18 10/12/18 10/12/18 18:39 20:56 21:34 WBC Hgb Hct MCV RDW Plt Count [place] % (Auto) [place] # Seg Neutrophils % Seg Neuts % (Manual) Lymphocytes % (Manual) Monocytes % (Manual) Seg Neutrophils # Seg Neutrophils # Man Lymphocytes # (Manual) Monocytes # (Manual) APTT POC ABG pH 7.336 L POC ABG pCO2 46.0 H POC ABG pO2 Sodium Potassium Chloride Carbon Dioxide BUN Creatinine Glucose POC Glucose 255 H 260 H Lactic Acid Calcium Phosphorus Total Bilirubin AST ALT Total Creatine Kinase CK-MB (CK-2) Troponin T Total Protein Albumin HDL Cholesterol Salicylates Acetaminophen 10/13/18 10/13/18 10/13/18 02:29 05:09 05:40 WBC 17.0 H Hgb Hct MCV RDW Plt Count [place] % (Auto) 9.2 H [place] # 1.6 H Seg Neutrophils % 76.2 H Seg Neuts % (Manual) Lymphocytes % (Manual) Monocytes % (Manual) Seg Neutrophils # 12.9 H Seg Neutrophils # Man Lymphocytes # (Manual) Monocytes # (Manual) APTT POC ABG pH POC ABG pCO2 POC ABG pO2 Sodium Potassium Chloride Carbon Dioxide BUN Creatinine Glucose POC Glucose 216 H 249 H Lactic Acid Calcium Phosphorus Total Bilirubin AST ALT Total Creatine Kinase CK-MB (CK-2) Troponin T Total Protein Albumin HDL Cholesterol Salicylates Acetaminophen 10/13/18 10/13/18 10/13/18 05:40 05:40 09:46 WBC Hgb Hct MCV RDW Plt Count [place] % (Auto) [place] # Seg Neutrophils % Seg Neuts % (Manual) Lymphocytes % (Manual) Monocytes % (Manual) Seg Neutrophils # Seg Neutrophils # Man Lymphocytes # (Manual) Monocytes # (Manual) APTT POC ABG pH POC ABG pCO2 POC ABG pO2 Sodium 146 H Potassium Chloride 109.8 H Carbon Dioxide BUN 35 H Creatinine Glucose 245 H POC Glucose 235 H Lactic Acid Calcium 7.9 L Phosphorus Total Bilirubin AST ALT Total Creatine Kinase CK-MB (CK-2) Troponin T 0.952 H* D Total Protein Albumin HDL Cholesterol Salicylates Acetaminophen 10/13/18 10/13/18 10/13/18 13:12 13:58 16:15 WBC Hgb Hct MCV RDW Plt Count [place] % (Auto) [place] # Seg Neutrophils % Seg Neuts % (Manual) Lymphocytes % (Manual) Monocytes % (Manual) Seg Neutrophils # Seg Neutrophils # Man Lymphocytes # (Manual) Monocytes # (Manual) APTT POC ABG pH POC ABG pCO2 46.2 H 51.2 H POC ABG pO2 52 L Sodium Potassium Chloride Carbon Dioxide BUN Creatinine Glucose POC Glucose Lactic Acid Calcium Phosphorus Total Bilirubin AST ALT Total Creatine Kinase CK-MB (CK-2) Troponin T 0.816 H* Total Protein Albumin HDL Cholesterol Salicylates Acetaminophen 10/13/18 10/13/18 10/14/18 17:30 21:25 01:49 WBC Hgb Hct MCV RDW Plt Count [place] % (Auto) [place] # Seg Neutrophils % Seg Neuts % (Manual) Lymphocytes % (Manual) Monocytes % (Manual) Seg Neutrophils # Seg Neutrophils # Man Lymphocytes # (Manual) Monocytes # (Manual) APTT POC ABG pH POC ABG pCO2 POC ABG pO2 Sodium Potassium Chloride Carbon Dioxide BUN Creatinine Glucose POC Glucose 139 H 205 H 166 H Lactic Acid Calcium Phosphorus Total Bilirubin AST ALT Total Creatine Kinase CK-MB (CK-2) Troponin T Total Protein Albumin HDL Cholesterol Salicylates Acetaminophen 10/14/18 10/14/18 10/14/18 04:52 05:32 09:45 WBC Hgb 11.4 L Hct 34.5 L MCV RDW Plt Count 139 L [place] % (Auto) [place] # Seg Neutrophils % Seg Neuts % (Manual) Lymphocytes % (Manual) Monocytes % (Manual) Seg Neutrophils # Seg Neutrophils # Man Lymphocytes # (Manual) Monocytes # (Manual) APTT POC ABG pH POC ABG pCO2 56.0 H POC ABG pO2 Sodium Potassium Chloride Carbon Dioxide BUN Creatinine Glucose POC Glucose 164 H Lactic Acid Calcium Phosphorus Total Bilirubin AST ALT Total Creatine Kinase CK-MB (CK-2) Troponin T Total Protein Albumin HDL Cholesterol Salicylates Acetaminophen 05/10/2810/14/18 10/14/18 09:45 10:54 12:20 WBC Hgb Hct MCV RDW Plt Count [place] % (Auto) [place] # Seg Neutrophils % Seg Neuts % (Manual) Lymphocytes % (Manual) Monocytes % (Manual) Seg Neutrophils # Seg Neutrophils # Man Lymphocytes # (Manual) Monocytes # (Manual) APTT POC ABG pH POC ABG pCO2 POC ABG pO2 Sodium 148 H Potassium Chloride 107.3 H Carbon Dioxide 34 H D BUN Creatinine 0.7 L D Glucose 191 H POC Glucose 173 H 158 H Lactic Acid Calcium 7.3 L Phosphorus Total Bilirubin AST 110 H ALT 91 H Total Creatine Kinase CK-MB (CK-2) Troponin T Total Protein 4.9 L Albumin 2.0 L HDL Cholesterol Salicylates Acetaminophen 10/14/18 10/14/18 10/15/18 18:30 21:54 02:12 WBC Hgb Hct MCV RDW Plt Count [place] % (Auto) [place] # Seg Neutrophils % Seg Neuts % (Manual) Lymphocytes % (Manual) Monocytes % (Manual) Seg Neutrophils # Seg Neutrophils # Man Lymphocytes # (Manual) Monocytes # (Manual) APTT POC ABG pH POC ABG pCO2 POC ABG pO2 Sodium Potassium Chloride Carbon Dioxide BUN Creatinine Glucose POC Glucose 108 H 110 H 164 H Lactic Acid Calcium Phosphorus Total Bilirubin AST ALT Total Creatine Kinase CK-MB (CK-2) Troponin T Total Protein Albumin HDL Cholesterol Salicylates Acetaminophen 10/15/18 10/15/18 10/15/18 04:19 04:55 05:43 WBC Hgb Hct MCV RDW Plt Count [place] % (Auto) [place] # Seg Neutrophils % Seg Neuts % (Manual) Lymphocytes % (Manual) Monocytes % (Manual) Seg Neutrophils # Seg Neutrophils # Man Lymphocytes # (Manual) Monocytes # (Manual) APTT POC ABG pH 7.491 H POC ABG pCO2 45.1 H 47.3 H POC ABG pO2 78 L Sodium Potassium Chloride Carbon Dioxide BUN Creatinine Glucose POC Glucose 250 H Lactic Acid Calcium Phosphorus Total Bilirubin AST ALT Total Creatine Kinase CK-MB (CK-2) Troponin T Total Protein Albumin HDL Cholesterol Salicylates Acetaminophen 10/15/18 10/15/18 10/15/18 06:20 12:00 12:00 WBC Hgb 11.7 L 11.5 L Hct 34.7 L 34.0 L MCV RDW Plt Count [place] % (Auto) [place] # Seg Neutrophils % Seg Neuts % (Manual) Lymphocytes % (Manual) Monocytes % (Manual) Seg Neutrophils # Seg Neutrophils # Man Lymphocytes # (Manual) Monocytes # (Manual) APTT POC ABG pH POC ABG pCO2 POC ABG pO2 Sodium 147 H Potassium Chloride 108.5 H Carbon Dioxide BUN Creatinine 0.7 L Glucose 209 H POC Glucose Lactic Acid Calcium 7.3 L Phosphorus Total Bilirubin AST ALT Total Creatine Kinase CK-MB (CK-2) Troponin T Total Protein Albumin HDL Cholesterol Salicylates Acetaminophen 10/15/18 12:11 WBC Hgb Hct MCV RDW Plt Count [place] % (Auto) [place] # Seg Neutrophils % Seg Neuts % (Manual) Lymphocytes % (Manual) Monocytes % (Manual) Seg Neutrophils # Seg Neutrophils # Man Lymphocytes # (Manual) Monocytes # (Manual) APTT POC ABG pH POC ABG pCO2 POC ABG pO2 Sodium Potassium Chloride Carbon Dioxide BUN Creatinine Glucose POC Glucose 197 H Lactic Acid Calcium Phosphorus Total Bilirubin AST ALT Total Creatine Kinase CK-MB (CK-2) Troponin T Total Protein Albumin HDL Cholesterol Salicylates Acetaminophen Allied health notes reviewed: nursing
[2018-10-15] MEDS ORDERED: SIMPLE SYRUP FEEDTUBE PRN ×2 (14:39)
[2018-10-15] MEDS ORDERED: PANCREAZE DR 10,500 UNIT FEEDTUBE PRN (14:39)
[2018-10-15] MEDS ORDERED: SODIUM BICARBONATE FEEDTUBE PRN (14:39)
--- NOTE | 2018-10-15 16:05 | Progress Note ---
Assessment and Plan 58-year-old male with multiple medical issues including multiple strokes status post partial craniectomy in March for prior strokes with bilateral lower extremity ischemia. Unfortunately, lack of ability to anticoagulate patient, even intraprocedurally, limits our ability to care for the patient. Recommend anticoagulation once cleared by neurology for anticoagulation. Once patient can be anticoagulated, he may benefit from some element of revascularization to limit amputations. At this time, patient will likely be a bilateral amputee due to the lack of ability to anticoagulate him with ischemia of the lower extremities due to [employer] issues. We'll continue to follow. Subjective Date of service: 10/15/18 Principal diagnosis: Ac hypercapnic hypoxemic Resp failure; Drug OD; AE-COPD; NINOSKA; Seizures Interval history: Sedated by staff at time of exam. Both lower extremity are cool. Right forefoot ischemic. Left calf and foot is ischemic. Warm right calf. Left calf cool. Cannot be anticoagulated. Objective - Constitutional Vitals: Vital Signs - 12hr 10/15/18 10/15/18 10/15/18 04:15 04:30 04:45 Temperature Pulse Rate 103 H 102 H 100 H Pulse Rate [ Anterior Bilateral Throughout] Pulse Rate [ From Monitor] Respiratory 25 H 25 H 25 H Rate Respiratory Rate [Anterior Bilateral Throughout] Blood Pressure 98/55 100/56 97/58 O2 Sat by Pulse 94 95 Oximetry 10/15/18 10/15/18 10/15/18 04:53 05:00 05:15 Temperature Pulse Rate 102 H 102 H 100 H Pulse Rate [ Anterior Bilateral Throughout] Pulse Rate [ From Monitor] Respiratory 25 H 25 H Rate Respiratory Rate [Anterior Bilateral Throughout] Blood Pressure 97/58 94/56 99/56 O2 Sat by Pulse 96 94 Oximetry 10/15/18 10/15/18 10/15/18 05:30 05:45 06:00 Temperature Pulse Rate 102 H 99 H 99 H Pulse Rate [ Anterior Bilateral Throughout] Pulse Rate [ From Monitor] Respiratory 25 H 25 H 25 H Rate Respiratory Rate [Anterior Bilateral Throughout] Blood Pressure 105/57 102/57 101/56 O2 Sat by Pulse 94 93 Oximetry 10/15/18 10/15/18 10/15/18 06:15 06:30 06:45 Temperature Pulse Rate 99 H 100 H 102 H Pulse Rate [ Anterior Bilateral Throughout] Pulse Rate [ From Monitor] Respiratory 25 H 25 H 25 H Rate Respiratory Rate [Anterior Bilateral Throughout] Blood Pressure 98/58 97/53 103/55 O2 Sat by Pulse 93 94 93 Oximetry 10/15/18 10/15/18 10/15/18 07:00 07:15 07:30 Temperature Pulse Rate 104 H 107 H 111 H Pulse Rate [ Anterior Bilateral Throughout] Pulse Rate [ From Monitor] Respiratory 25 H 25 H 24 Rate Respiratory Rate [Anterior Bilateral Throughout] Blood Pressure 112/58 119/63 123/62 O2 Sat by Pulse 92 93 93 Oximetry 10/15/18 10/15/18 10/15/18 07:45 08:00 08:15 Temperature 98.7 F Pulse Rate 113 H 111 H 116 H Pulse Rate [ Anterior Bilateral Throughout] Pulse Rate [ 115 H From Monitor] Respiratory 25 H 25 H 25 H Rate Respiratory Rate [Anterior Bilateral Throughout] Blood Pressure 118/63 104/55 120/53 O2 Sat by Pulse 93 94 92 Oximetry 10/15/18 10/15/18 10/15/18 08:19 08:22 08:30 Temperature Pulse Rate 114 H 117 H Pulse Rate [ 114 H Anterior Bilateral Throughout] Pulse Rate [ From Monitor] Respiratory 15 25 H Rate Respiratory 20 Rate [Anterior Bilateral Throughout] Blood Pressure 120/53 113/59 O2 Sat by Pulse 94 91 Oximetry 10/15/18 10/15/18 10/15/18 08:40 08:45 09:00 Temperature Pulse Rate 124 H 119 H Pulse Rate [ 122 H Anterior Bilateral Throughout] Pulse Rate [ From Monitor] Respiratory 26 H 25 H Rate Respiratory 25 H Rate [Anterior Bilateral Throughout] Blood Pressure 126/56 118/58 O2 Sat by Pulse 94 92 Oximetry 10/15/18 10/15/18 10/15/18 09:15 09:30 09:45 Temperature Pulse Rate 119 H 115 H 110 H Pulse Rate [ Anterior Bilateral Throughout] Pulse Rate [ From Monitor] Respiratory 26 H 21 19 Rate Respiratory Rate [Anterior Bilateral Throughout] Blood Pressure 109/55 116/57 120/63 O2 Sat by Pulse 93 95 Oximetry 10/15/18 10/15/18 10/15/18 10:00 11:05 11:15 Temperature Pulse Rate 107 H 107 H 110 H Pulse Rate [ Anterior Bilateral Throughout] Pulse Rate [ From Monitor] Respiratory 15 24 Rate Respiratory Rate [Anterior Bilateral Throughout] Blood Pressure O2 Sat by Pulse 100 95 Oximetry 10/15/18 10/15/1819 11:31 11:45 11:55 Temperature Pulse Rate 112 H 110 H 120 H Pulse Rate [ Anterior Bilateral Throughout] Pulse Rate [ From Monitor] Respiratory 19 24 Rate Respiratory Rate [Anterior Bilateral Throughout] Blood Pressure 130/94 135/78 O2 Sat by Pulse 94 97 Oximetry 10/15/18 10/15/18 10/15/18 12:00 12:01 12:15 Temperature 99.8 F H Pulse Rate 99 H 92 H Pulse Rate [ Anterior Bilateral Throughout] Pulse Rate [ 94 H From Monitor] Respiratory 25 H 16 17 Rate Respiratory Rate [Anterior Bilateral Throughout] Blood Pressure 112/59 112/59 O2 Sat by Pulse 95 93 Oximetry 10/15/18 10/15/18 10/15/18 12:30 12:45 13:00 Temperature Pulse Rate 91 H 91 H 94 H Pulse Rate [ Anterior Bilateral Throughout] Pulse Rate [ From Monitor] Respiratory 17 17 22 Rate Respiratory Rate [Anterior Bilateral Throughout] Blood Pressure 113/55 105/52 108/60 O2 Sat by Pulse 95 95 Oximetry 10/15/18 10/15/18 10/15/18 13:15 13:28 13:30 Temperature Pulse Rate 87 106 H 89 Pulse Rate [ Anterior Bilateral Throughout] Pulse Rate [ From Monitor] Respiratory 15 18 Rate Respiratory Rate [Anterior Bilateral Throughout] Blood Pressure 98/54 98/54 108/57 O2 Sat by Pulse 96 98 96 Oximetry 10/15/18 10/15/18 10/15/18 13:45 14:00 14:15 Temperature Pulse Rate 95 H 88 86 Pulse Rate [ Anterior Bilateral Throughout] Pulse Rate [ From Monitor] Respiratory 17 18 16 Rate Respiratory Rate [Anterior Bilateral Throughout] Blood Pressure 105/55 115/56 104/58 O2 Sat by Pulse 96 96 Oximetry 10/15/18 10/15/18 10/15/18 14:30 14:31 14:45 Temperature Pulse Rate 87 90 Pulse Rate [ 94 H Anterior Bilateral Throughout] Pulse Rate [ From Monitor] Respiratory 16 14 Rate Respiratory 17 Rate [Anterior Bilateral Throughout] Blood Pressure 104/56 109/54 O2 Sat by Pulse 95 92 Oximetry 10/15/18 10/15/18 10/15/18 14:50 15:00 15:15 Temperature Pulse Rate 90 90 Pulse Rate [ 96 H Anterior Bilateral Throughout] Pulse Rate [ From Monitor] Respiratory 16 15 Rate Respiratory 20 Rate [Anterior Bilateral Throughout] Blood Pressure 105/62 101/60 O2 Sat by Pulse 91 Oximetry General appearance: Present: other (intubated) - EENT ENT: other (intubated) - Respiratory Respiratory effort: other (intubtaed) Extremities: abnormal (right forefoot ischemic with warm calf ; left foot and calf ischemic and cool) - Psychiatric Psychiatric: other (intubated) - Labs CBC & Chem 7: 10/15/18 12:00 10/15/18 12:00 Labs: Abnormal lab results 10/14/18 10/14/18 10/15/18 Range/Units 18:30 21:54 02:12 Hgb (11.8-15.2) gm/dl Hct (35.5-45.6) % POC ABG pH (7.35-7.45) POC ABG pCO2 (35-45) POC ABG pO2 (80-105) Sodium (137-145) mmol/L Chloride (98-107) mmol/L Creatinine (0.8-1.5) mg/dL Glucose (75-100) mg/dL POC Glucose 108 H 110 H 164 H (70-105) Calcium (8.4-10.2) mg/dL 10/15/18 10/15/18 10/15/18 Range/Units 04:19 04:55 05:43 Hgb (11.8-15.2) gm/dl Hct (35.5-45.6) % POC ABG pH 7.491 H (7.35-7.45) POC ABG pCO2 45.1 H 47.3 H (35-45) POC ABG pO2 78 L (80-105) Sodium (137-145) mmol/L Chloride (98-107) mmol/L Creatinine (0.8-1.5) mg/dL Glucose (75-100) mg/dL POC Glucose 250 H (70-105) Calcium (8.4-10.2) mg/dL 10/15/18 10/15/18 10/15/18 Range/Units 06:20 12:00 12:00 Hgb 11.7 L 11.5 L (11.8-15.2) gm/dl Hct 34.7 L 34.0 L (35.5-45.6) % POC ABG pH (7.35-7.45) POC ABG pCO2 (35-45) POC ABG pO2 (80-105) Sodium 147 H (137-145) mmol/L Chloride 108.5 H (98-107) mmol/L Creatinine 0.7 L (0.8-1.5) mg/dL Glucose 209 H (75-100) mg/dL POC Glucose (70-105) Calcium 7.3 L (8.4-10.2) mg/dL 10/15/18 10/15/18 Range/Units 12:11 15:48 Hgb (11.8-15.2) gm/dl Hct (35.5-45.6) % POC ABG pH (7.35-7.45) POC ABG pCO2 (35-45) POC ABG pO2 (80-105) Sodium (137-145) mmol/L Chloride (98-107) mmol/L Creatinine (0.8-1.5) mg/dL Glucose (75-100) mg/dL POC Glucose 197 H 220 H (70-105) Calcium (8.4-10.2) mg/dL Medications & Allergies - Medications Allergies/Adverse Reactions: Allergies No Known Allergies Allergy (Verified 10/31/14 11:20) Home Medications: Home Medications Medication Instructions Recorded Confirmed Last Taken Type Gabapentin [Neurontin] 90 mg PO Q8HR 04/22/15 04/22/15 04/21/15 History ALPRAZolam [Xanax TAB] 1 mg PO TID PRN #30 tablet 03/28/16 Unknown Rx Albuterol Sulfate [Ventolin HFA] 2 puff IH Q4H PRN #1 [id number] 03/28/16 Unknown Rx Ciprofloxacin HCl [Ciprofloxacin 500 mg PO Q12HR #30 tab 03/28/16 Unknown Rx TAB] Citalopram [celeXA] 10 mg PO QDAY #30 tablet 03/28/16 Unknown Rx Nicotine [Habitrol] 14 mg TD QDAY #30 patch 03/28/16 Unknown Rx Sitagliptin Phos/Metformin HCl 1 tab PO QDAY #30 tbmp.24hr 03/28/16 Unknown Rx [Janumet XR 100-1,000 mg] oxyCODONE /ACETAMINOPHEN [Percocet 1 tab PO Q6H PRN #60 tablet 03/28/16 Unknown Rx 5/325 mg] Active Medications: Generic Name Dose Route Start Last Admin Trade Name Freq PRN Reason Stop Dose Admin Acetaminophen 650 mg 10/11/18 04:04 10/11/18 13:40 Tylenol PO 650 mg Q4H PRN Administration Pain MILD(1-3)/Fever >100.5/HOLLINS Acetaminophen 650 mg 10/12/18 01:26 Tylenol SC Q4H PRN Pain, Mild(1-3)/Fever>100.5/HOLLINS Albuterol/Ipratropium 1 ampul 10/11/18 14:00 10/15/18 14:31 Duoneb *Not For Prn Use* IH 1 ampul Q6HRT ISAAC Administration Lipase/Protease/Amylase 1 each 10/11/18 14:12 Pancresolo Mcgrath 10,500 Unit FEEDTUBE PRN PRN For Clogged Feeding Tube Aspirin 325 mg 10/13/18 10:00 10/15/18 11:52 Aspirin PO 325 mg QDAY ISAAC Administration Dextrose 0 ml 10/11/18 03:57 10/11/18 10:18 D50w (25gm) Syringe IV 10 ml PRN PRN Administration Hypoglycemia Famotidine 20 mg 10/15/18 10:00 10/15/18 11:55 Pepcid PO 20 mg BID ISAAC Administration Fentanyl 50 mcg 10/11/18 13:00 10/13/18 02:27 Sublimaze IV 50 mcg Q10MIN PRN Administration ANALGESIA Hydrophilic Ointment 1 applic 10/11/18 14:00 Vaseline Lip Therapy TP Q2HR PRN Dry Lips Norepinephrine 4 mg in 250 mls @ 7.5 mls/hr 10/11/18 04:00 10/15/18 08:00 Levophed Drip 4 Mg/Ns 250 Ml IV 0 mcg/min TITR ISAAC 0 mls/hr Titration Protocol 2 MCG/MIN Ampicillin Sodium/Sulbactam Sodium 3 gm in 100 mls @ 200 mls/hr 10/13/18 14:00 10/15/18 11:55 Unasyn/Ns 3 Gm/100 Ml IV 200 mls/hr Q6HR ISAAC Administration Protocol Fentanyl Citrate 2,000 mcg in 100 mls @ 3.51 mls/hr 10/14/18 15:00 10/15/18 13:58 Fentanyl Drip Premix IV 4 mcg/kg/hr TITR ISAAC 14.04 mls/hr Administration Protocol 1 MCG/KG/HR Insulin Human Regular 0 units 10/12/18 14:00 10/15/18 12:07 Humulin R SUB-Q 3 units Q4HR ISAAC Administration Protocol Metoprolol Tartrate 2.5 mg 10/15/18 12:00 10/15/18 11:55 Lopressor IV 2.5 mg Q6HR ISAAC Administration Morphine Sulfate 2 mg 10/14/18 11:29 10/14/18 14:59 Morphine IV 2 mg Q4H PRN Administration severe pain 7-10 Multi-Ingred Cream/Lotion/Oil/Oint 1 applic 10/11/18 14:00 Artificial Tears Ophth Oint OU Q4HR PRN Dry Eye(s) Ondansetron HCl 4 mg 10/11/18 04:04 Zofran IV Q8H PRN Nausea And Vomiting Quetiapine Fumarate 200 mg 10/14/18 22:00 10/14/18 22:00 Seroquel PO 200 mg QHS ISAAC Administration Simple Syrup 15 ml 10/11/18 14:12 Simple Syrup FEEDTUBE PRN PRN Hypoglycemia Simple Syrup 30 ml 10/11/18 14:12 Simple Syrup FEEDTUBE PRN PRN Hypoglycemia Sodium Bicarbonate 325 mg 10/11/18 14:12 Sodium Bicarbonate FEEDTUBE PRN PRN For Clogged Feeding Tube Sodium Chloride 10 ml 10/11/18 10:00 10/15/18 11:55 Sodium Chloride Flush Syringe 10 Ml IV 10 ml BID ISAAC Administration Sodium Chloride 10 ml 10/11/18 04:04 Sodium Chloride Flush Syringe 10 Ml IV PRN PRN LINE FLUSH
--- NOTE | 2018-10-15 17:57 | Progress Note ---
Assessment and Plan This is a 58 YO m with numerous embolic strokes with hemorrhagic conversion. Pt with known drug use, pt will have QUIQUE to rule out endocarditis. Recommend: Would not anticoagulate at this time. Consider repeat Ct head in 10-14 days and if no remaining hemorrhage could start antiplatelet therapy. Pt with clots in his legs. Needs EEG , pt does not appear to be seizing but has increased risk. Would have low threshold to start Keppra. Frequent neurochecks- q4 Guarded prognosis. Subjective Date of service: 10/15/18 Principal diagnosis: Ac hypercapnic hypoxemic Resp failure; Drug OD; AE-COPD; NINOSKA; Seizures Interval history: Pt had been followed by Neurology for embolic stroke with hemorrhagic conversion. Pt currently sedated for procedures but shemar pratt says he will respond. On my entrance into the room and calling his name he opens his eyes and looks and me, squeezes my hand on the left but doesn't do anything else. Objective - Vital Sign Vital Signs - 12hr 10/15/18 10/15/18 10/15/18 06:00 06:15 06:30 Temperature Pulse Rate 99 H 99 H 100 H Pulse Rate [ Anterior Bilateral Throughout] Pulse Rate [ From Monitor] Respiratory 25 H 25 H 25 H Rate Respiratory Rate [Anterior Bilateral Throughout] Blood Pressure 101/56 98/58 97/53 O2 Sat by Pulse 93 93 94 Oximetry 10/15/18 10/15/18 10/15/18 06:45 07:00 07:15 Temperature Pulse Rate 102 H 104 H 107 H Pulse Rate [ Anterior Bilateral Throughout] Pulse Rate [ From Monitor] Respiratory 25 H 25 H 25 H Rate Respiratory Rate [Anterior Bilateral Throughout] Blood Pressure 103/55 112/58 119/63 O2 Sat by Pulse 93 92 93 Oximetry 10/15/18 10/15/18 10/15/18 07:30 07:45 08:00 Temperature 98.7 F Pulse Rate 111 H 113 H 111 H Pulse Rate [ Anterior Bilateral Throughout] Pulse Rate [ 115 H From Monitor] Respiratory 24 25 H 25 H Rate Respiratory Rate [Anterior Bilateral Throughout] Blood Pressure 123/62 118/63 104/55 O2 Sat by Pulse 93 93 94 Oximetry 10/15/18 10/15/18 10/15/18 08:15 08:19 08:22 Temperature Pulse Rate 116 H 114 H Pulse Rate [ 114 H Anterior Bilateral Throughout] Pulse Rate [ From Monitor] Respiratory 25 H 15 Rate Respiratory 20 Rate [Anterior Bilateral Throughout] Blood Pressure 120/53 120/53 O2 Sat by Pulse 92 94 Oximetry 10/15/18 10/15/18 10/15/18 08:30 08:40 08:45 Temperature Pulse Rate 117 H 124 H Pulse Rate [ 122 H Anterior Bilateral Throughout] Pulse Rate [ From Monitor] Respiratory 25 H 26 H Rate Respiratory 25 H Rate [Anterior Bilateral Throughout] Blood Pressure 113/59 126/56 O2 Sat by Pulse 91 94 Oximetry 10/15/18 10/15/18 10/15/18 09:00 09:15 09:30 Temperature Pulse Rate 119 H 119 H 115 H Pulse Rate [ Anterior Bilateral Throughout] Pulse Rate [ From Monitor] Respiratory 25 H 26 H 21 Rate Respiratory Rate [Anterior Bilateral Throughout] Blood Pressure 118/58 109/55 116/57 O2 Sat by Pulse 92 93 Oximetry 10/15/18 10/15/18 10/15/18 09:45 10:00 11:05 Temperature Pulse Rate 110 H 107 H 107 H Pulse Rate [ Anterior Bilateral Throughout] Pulse Rate [ From Monitor] Respiratory 19 15 Rate Respiratory Rate [Anterior Bilateral Throughout] Blood Pressure 120/63 O2 Sat by Pulse 95 100 Oximetry 10/15/18 10/15/18 10/15/18 11:15 11:31 11:45 Temperature Pulse Rate 110 H 112 H 110 H Pulse Rate [ Anterior Bilateral Throughout] Pulse Rate [ From Monitor] Respiratory 24 19 24 Rate Respiratory Rate [Anterior Bilateral Throughout] Blood Pressure 130/94 O2 Sat by Pulse 95 94 97 Oximetry 10/15/18 10/15/18 10/15/18 11:55 12:00 12:01 Temperature 99.8 F H Pulse Rate 120 H 99 H Pulse Rate [ Anterior Bilateral Throughout] Pulse Rate [ 94 H From Monitor] Respiratory 25 H 16 Rate Respiratory Rate [Anterior Bilateral Throughout] Blood Pressure 135/78 112/59 O2 Sat by Pulse 95 93 Oximetry 10/15/18 10/15/18 10/15/18 12:15 12:30 12:45 Temperature Pulse Rate 92 H 91 H 91 H Pulse Rate [ Anterior Bilateral Throughout] Pulse Rate [ From Monitor] Respiratory 17 17 17 Rate Respiratory Rate [Anterior Bilateral Throughout] Blood Pressure 112/59 113/55 105/52 O2 Sat by Pulse 95 95 Oximetry 10/15/18 10/15/18 10/15/18 13:00 13:15 13:28 Temperature Pulse Rate 94 H 87 106 H Pulse Rate [ Anterior Bilateral Throughout] Pulse Rate [ From Monitor] Respiratory 22 15 Rate Respiratory Rate [Anterior Bilateral Throughout] Blood Pressure 108/60 98/54 98/54 O2 Sat by Pulse 96 98 Oximetry 10/15/18 10/15/18 10/15/18 13:30 13:45 14:00 Temperature Pulse Rate 89 95 H 88 Pulse Rate [ Anterior Bilateral Throughout] Pulse Rate [ From Monitor] Respiratory 18 17 18 Rate Respiratory Rate [Anterior Bilateral Throughout] Blood Pressure 108/57 105/55 115/56 O2 Sat by Pulse 96 96 Oximetry 10/15/18 10/15/18 10/15/18 14:15 14:30 14:31 Temperature Pulse Rate 86 87 Pulse Rate [ 94 H Anterior Bilateral Throughout] Pulse Rate [ From Monitor] Respiratory 16 16 Rate Respiratory 17 Rate [Anterior Bilateral Throughout] Blood Pressure 104/58 104/56 O2 Sat by Pulse 96 95 Oximetry 10/15/18 10/15/18 10/15/18 14:45 14:50 15:00 Temperature Pulse Rate 90 90 Pulse Rate [ 96 H Anterior Bilateral Throughout] Pulse Rate [ From Monitor] Respiratory 14 16 Rate Respiratory 20 Rate [Anterior Bilateral Throughout] Blood Pressure 109/54 105/62 O2 Sat by Pulse 92 91 Oximetry 10/15/18 10/15/18 10/15/18 15:15 15:30 15:45 Temperature Pulse Rate 90 89 87 Pulse Rate [ Anterior Bilateral Throughout] Pulse Rate [ From Monitor] Respiratory 15 14 17 Rate Respiratory Rate [Anterior Bilateral Throughout] Blood Pressure 101/60 109/59 113/57 O2 Sat by Pulse 93 95 Oximetry 10/15/18 10/15/18 10/15/18 16:00 16:15 16:45 Temperature Pulse Rate 86 87 86 Pulse Rate [ Anterior Bilateral Throughout] Pulse Rate [ 87 From Monitor] Respiratory 15 14 Rate Respiratory Rate [Anterior Bilateral Throughout] Blood Pressure 108/54 113/56 111/61 O2 Sat by Pulse 95 95 96 Oximetry 10/15/18 17:21 Temperature Pulse Rate 78 Pulse Rate [ Anterior Bilateral Throughout] Pulse Rate [ From Monitor] Respiratory Rate Respiratory Rate [Anterior Bilateral Throughout] Blood Pressure 113/57 O2 Sat by Pulse Oximetry - EENT EENT: PERRL, mucous membranes moist - Respiratory Respiratory: lungs clear - Cardiovascular Cardiovascular: regular rate - Gastrointestinal Gastrointestinal: normoactive bowel sounds - Neurologic Cranial nerve examination: PERRL, EOMI, face symmetric Speech examination: other (intubated) Detailed motor examination: other (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) Reflexes: 0: ankle, bicep, knee, tricep - Laboratory Findings CBC and BMP: 10/15/18 12:00 10/15/18 12:00 Abnormal Lab Findings: Abnormal Labs 10/11/18 10/11/18 10/11/18 00:16 00:16 00:16 WBC 20.1 H Hgb Hct MCV 98 H RDW 15.4 H Plt Count [place] % (Auto) [place] # Seg Neutrophils % Seg Neuts % (Manual) Lymphocytes % (Manual) 5.0 L Monocytes % (Manual) 25.0 H Seg Neutrophils # Seg Neutrophils # Man 9.2 H Lymphocytes # (Manual) 1.0 L Monocytes # (Manual) 5.0 H APTT POC ABG pH POC ABG pCO2 POC ABG pO2 Sodium Potassium 5.8 H Chloride Carbon Dioxide 17 L BUN Creatinine 2.2 H Glucose 348 H POC Glucose Lactic Acid 13.70 H* Calcium 7.7 L Phosphorus Total Bilirubin 1.50 H AST 179 H ALT 110 H Total Creatine Kinase 324 H CK-MB (CK-2) Troponin T 0.257 H* Total Protein 5.9 L Albumin 2.9 L HDL Cholesterol 19 L Salicylates Acetaminophen 10/11/18 10/11/18 10/11/18 00:16 00:16 01:21 WBC Hgb Hct MCV RDW Plt Count [place] % (Auto) [place] # Seg Neutrophils % Seg Neuts % (Manual) Lymphocytes % (Manual) Monocytes % (Manual) Seg Neutrophils # Seg Neutrophils # Man Lymphocytes # (Manual) Monocytes # (Manual) APTT POC ABG pH 7.110 L POC ABG pCO2 50.3 H POC ABG pO2 65 L Sodium Potassium Chloride Carbon Dioxide BUN Creatinine Glucose POC Glucose Lactic Acid Calcium Phosphorus Total Bilirubin AST ALT Total Creatine Kinase CK-MB (CK-2) Troponin T Total Protein Albumin HDL Cholesterol Salicylates < 0.3 L Acetaminophen < 5.0 L 10/11/18 10/11/18 10/11/18 01:22 03:27 04:14 WBC Hgb Hct MCV RDW Plt Count [place] % (Auto) [place] # Seg Neutrophils % Seg Neuts % (Manual) Lymphocytes % (Manual) Monocytes % (Manual) Seg Neutrophils # Seg Neutrophils # Man Lymphocytes # (Manual) Monocytes # (Manual) APTT POC ABG pH POC ABG pCO2 POC ABG pO2 Sodium Potassium Chloride Carbon Dioxide BUN Creatinine Glucose POC Glucose Lactic Acid 8.50 H* 4.10 H* Calcium Phosphorus 4.90 H Total Bilirubin AST ALT Total Creatine Kinase CK-MB (CK-2) Troponin T Total Protein Albumin HDL Cholesterol Salicylates Acetaminophen 10/11/18 10/11/18 10/11/18 04:14 04:14 04:14 WBC Hgb Hct MCV RDW Plt Count [place] % (Auto) [place] # Seg Neutrophils % Seg Neuts % (Manual) Lymphocytes % (Manual) Monocytes % (Manual) Seg Neutrophils # Seg Neutrophils # Man Lymphocytes # (Manual) Monocytes # (Manual) APTT POC ABG pH POC ABG pCO2 POC ABG pO2 Sodium Potassium 5.6 H Chloride Carbon Dioxide 19 L BUN Creatinine 1.6 H Glucose 329 H POC Glucose 328 H Lactic Acid Calcium 7.3 L Phosphorus Total Bilirubin AST ALT Total Creatine Kinase CK-MB (CK-2) Troponin T 1.130 H* D Total Protein Albumin HDL Cholesterol Salicylates Acetaminophen 10/11/18 10/11/18 10/11/18 05:10 05:32 05:58 WBC Hgb Hct MCV RDW Plt Count [place] % (Auto) [place] # Seg Neutrophils % Seg Neuts % (Manual) Lymphocytes % (Manual) Monocytes % (Manual) Seg Neutrophils # Seg Neutrophils # Man Lymphocytes # (Manual) Monocytes # (Manual) APTT POC ABG pH 7.259 L POC ABG pCO2 45.6 H POC ABG pO2 Sodium Potassium Chloride 108.6 H Carbon Dioxide 20 L BUN Creatinine 1.8 H Glucose 269 H POC Glucose 273 H Lactic Acid Calcium 7.0 L Phosphorus Total Bilirubin AST ALT Total Creatine Kinase CK-MB (CK-2) Troponin T Total Protein Albumin HDL Cholesterol Salicylates Acetaminophen 10/11/18 10/11/18 10/11/18 05:58 06:39 07:00 WBC Hgb Hct MCV RDW Plt Count [place] % (Auto) [place] # Seg Neutrophils % Seg Neuts % (Manual) Lymphocytes % (Manual) Monocytes % (Manual) Seg Neutrophils # Seg Neutrophils # Man Lymphocytes # (Manual) Monocytes # (Manual) APTT POC ABG pH POC ABG pCO2 POC ABG pO2 Sodium Potassium Chloride Carbon Dioxide BUN Creatinine Glucose POC Glucose 247 H Lactic Acid 3.20 H* 3.30 H* Calcium Phosphorus Total Bilirubin AST ALT Total Creatine Kinase CK-MB (CK-2) Troponin T Total Protein Albumin HDL Cholesterol Salicylates Acetaminophen 10/11/18 10/11/18 10/11/18 07:00 07:30 07:36 WBC Hgb Hct MCV RDW Plt Count [place] % (Auto) [place] # Seg Neutrophils % Seg Neuts % (Manual) Lymphocytes % (Manual) Monocytes % (Manual) Seg Neutrophils # Seg Neutrophils # Man Lymphocytes # (Manual) Monocytes # (Manual) APTT POC ABG pH POC ABG pCO2 POC ABG pO2 Sodium 146 H Potassium Chloride 112.1 H Carbon Dioxide 21 L BUN Creatinine 1.6 H Glucose 218 H POC Glucose Lactic Acid 3.20 H* Calcium 7.0 L Phosphorus Total Bilirubin AST ALT Total Creatine Kinase CK-MB (CK-2) Troponin T 1.020 H* Total Protein Albumin HDL Cholesterol Salicylates Acetaminophen 10/11/18 10/11/18 10/11/18 07:43 08:29 08:29 WBC Hgb 16.2 H Hct 49.9 H D MCV RDW Plt Count [place] % (Auto) [place] # Seg Neutrophils % Seg Neuts % (Manual) Lymphocytes % (Manual) Monocytes % (Manual) Seg Neutrophils # Seg Neutrophils # Man Lymphocytes # (Manual) Monocytes # (Manual) APTT POC ABG pH POC ABG pCO2 POC ABG pO2 Sodium Potassium Chloride Carbon Dioxide BUN Creatinine Glucose POC Glucose 174 H Lactic Acid 3.90 H* Calcium Phosphorus Total Bilirubin AST ALT Total Creatine Kinase CK-MB (CK-2) Troponin T Total Protein Albumin HDL Cholesterol Salicylates Acetaminophen 10/11/18 10/11/18 10/11/18 08:29 08:42 11:05 WBC Hgb Hct MCV RDW Plt Count [place] % (Auto) [place] # Seg Neutrophils % Seg Neuts % (Manual) Lymphocytes % (Manual) Monocytes % (Manual) Seg Neutrophils # Seg Neutrophils # Man Lymphocytes # (Manual) Monocytes # (Manual) APTT 24.1 L POC ABG pH POC ABG pCO2 POC ABG pO2 Sodium 147 H Potassium Chloride 113.3 H Carbon Dioxide 21 L BUN Creatinine 1.7 H Glucose 119 H POC Glucose 164 H Lactic Acid Calcium 7.7 L Phosphorus Total Bilirubin AST ALT Total Creatine Kinase CK-MB (CK-2) Troponin T Total Protein Albumin HDL Cholesterol Salicylates Acetaminophen 10/11/18 10/11/18 10/11/18 11:05 11:06 12:30 WBC Hgb Hct MCV RDW Plt Count [place] % (Auto) [place] # Seg Neutrophils % Seg Neuts % (Manual) Lymphocytes % (Manual) Monocytes % (Manual) Seg Neutrophils # Seg Neutrophils # Man Lymphocytes # (Manual) Monocytes # (Manual) APTT POC ABG pH POC ABG pCO2 POC ABG pO2 Sodium 148 H Potassium Chloride 113.4 H Carbon Dioxide 21 L BUN Creatinine 1.6 H Glucose 119 H POC Glucose 116 H Lactic Acid 3.20 H* Calcium 7.5 L Phosphorus Total Bilirubin AST ALT Total Creatine Kinase CK-MB (CK-2) Troponin T Total Protein Albumin HDL Cholesterol Salicylates Acetaminophen 10/11/18 10/11/18 10/11/18 12:30 13:16 13:25 WBC Hgb Hct MCV RDW Plt Count [place] % (Auto) [place] # Seg Neutrophils % Seg Neuts % (Manual) Lymphocytes % (Manual) Monocytes % (Manual) Seg Neutrophils # Seg Neutrophils # Man Lymphocytes # (Manual) Monocytes # (Manual) APTT POC ABG pH 7.247 L POC ABG pCO2 48.4 H POC ABG pO2 Sodium Potassium Chloride Carbon Dioxide BUN Creatinine Glucose POC Glucose 112 H Lactic Acid 2.70 H* Calcium Phosphorus Total Bilirubin AST ALT Total Creatine Kinase CK-MB (CK-2) Troponin T Total Protein Albumin HDL Cholesterol Salicylates Acetaminophen 10/11/18 10/11/18 10/11/18 14:41 15:27 16:13 WBC Hgb Hct MCV RDW Plt Count [place] % (Auto) [place] # Seg Neutrophils % Seg Neuts % (Manual) Lymphocytes % (Manual) Monocytes % (Manual) Seg Neutrophils # Seg Neutrophils # Man Lymphocytes # (Manual) Monocytes # (Manual) APTT POC ABG pH POC ABG pCO2 POC ABG pO2 Sodium Potassium Chloride Carbon Dioxide BUN Creatinine Glucose POC Glucose 127 H 141 H 134 H Lactic Acid Calcium Phosphorus Total Bilirubin AST ALT Total Creatine Kinase CK-MB (CK-2) Troponin T Total Protein Albumin HDL Cholesterol Salicylates Acetaminophen 10/11/18 10/11/18 10/11/18 17:18 18:23 19:38 WBC Hgb Hct MCV RDW Plt Count [place] % (Auto) [place] # Seg Neutrophils % Seg Neuts % (Manual) Lymphocytes % (Manual) Monocytes % (Manual) Seg Neutrophils # Seg Neutrophils # Man Lymphocytes # (Manual) Monocytes # (Manual) APTT POC ABG pH POC ABG pCO2 POC ABG pO2 Sodium 148 H Potassium Chloride 112.7 H Carbon Dioxide BUN 23 H Creatinine Glucose 143 H POC Glucose 132 H 129 H Lactic Acid Calcium 7.9 L Phosphorus Total Bilirubin AST ALT Total Creatine Kinase CK-MB (CK-2) Troponin T Total Protein Albumin HDL Cholesterol Salicylates Acetaminophen 10/11/18 10/11/18 10/11/18 20:19 20:36 21:01 WBC Hgb Hct MCV RDW Plt Count [place] % (Auto) [place] # Seg Neutrophils % Seg Neuts % (Manual) Lymphocytes % (Manual) Monocytes % (Manual) Seg Neutrophils # Seg Neutrophils # Man Lymphocytes # (Manual) Monocytes # (Manual) APTT POC ABG pH 7.281 L POC ABG pCO2 POC ABG pO2 Sodium Potassium Chloride Carbon Dioxide BUN Creatinine Glucose POC Glucose 129 H 151 H Lactic Acid Calcium Phosphorus Total Bilirubin AST ALT Total Creatine Kinase CK-MB (CK-2) Troponin T Total Protein Albumin HDL Cholesterol Salicylates Acetaminophen 10/11/18 10/11/18 10/12/18 22:04 23:15 01:18 WBC Hgb Hct MCV RDW Plt Count [place] % (Auto) [place] # Seg Neutrophils % Seg Neuts % (Manual) Lymphocytes % (Manual) Monocytes % (Manual) Seg Neutrophils # Seg Neutrophils # Man Lymphocytes # (Manual) Monocytes # (Manual) APTT POC ABG pH POC ABG pCO2 POC ABG pO2 Sodium Potassium Chloride Carbon Dioxide BUN Creatinine Glucose POC Glucose 147 H 143 H 158 H Lactic Acid Calcium Phosphorus Total Bilirubin AST ALT Total Creatine Kinase CK-MB (CK-2) Troponin T Total Protein Albumin HDL Cholesterol Salicylates Acetaminophen 10/12/18 10/12/18 10/12/18 02:13 03:18 04:04 WBC Hgb Hct MCV RDW Plt Count [place] % (Auto) [place] # Seg Neutrophils % Seg Neuts % (Manual) Lymphocytes % (Manual) Monocytes % (Manual) Seg Neutrophils # Seg Neutrophils # Man Lymphocytes # (Manual) Monocytes # (Manual) APTT POC ABG pH POC ABG pCO2 POC ABG pO2 Sodium 147 H Potassium Chloride 111.1 H Carbon Dioxide BUN 30 H Creatinine 2.0 H Glucose 154 H POC Glucose 148 H 142 H Lactic Acid Calcium 8.1 L Phosphorus Total Bilirubin AST 269 H ALT 204 H Total Creatine Kinase 3647 H CK-MB (CK-2) 48.3 H Troponin T 2.230 H* D Total Protein 5.8 L Albumin 2.6 L HDL Cholesterol Salicylates Acetaminophen 10/12/18 10/12/18 10/12/18 04:04 04:08 04:19 WBC 24.4 H Hgb Hct MCV RDW Plt Count [place] % (Auto) [place] # Seg Neutrophils % Seg Neuts % (Manual) 32.0 L Lymphocytes % (Manual) Monocytes % (Manual) 8.0 H Seg Neutrophils # Seg Neutrophils # Man 7.8 H Lymphocytes # (Manual) Monocytes # (Manual) 2.0 H APTT POC ABG pH 7.317 L POC ABG pCO2 49.3 H POC ABG pO2 Sodium Potassium Chloride Carbon Dioxide BUN Creatinine Glucose POC Glucose 143 H Lactic Acid Calcium Phosphorus Total Bilirubin AST ALT Total Creatine Kinase CK-MB (CK-2) Troponin T Total Protein Albumin HDL Cholesterol Salicylates Acetaminophen 10/12/18 10/12/18 10/12/18 05:29 06:52 08:09 WBC Hgb Hct MCV RDW Plt Count [place] % (Auto) [place] # Seg Neutrophils % Seg Neuts % (Manual) Lymphocytes % (Manual) Monocytes % (Manual) Seg Neutrophils # Seg Neutrophils # Man Lymphocytes # (Manual) Monocytes # (Manual) APTT POC ABG pH 7.322 L POC ABG pCO2 46.5 H POC ABG pO2 Sodium Potassium Chloride Carbon Dioxide BUN Creatinine Glucose POC Glucose 196 H 226 H Lactic Acid Calcium Phosphorus Total Bilirubin AST ALT Total Creatine Kinase CK-MB (CK-2) Troponin T Total Protein Albumin HDL Cholesterol Salicylates Acetaminophen 10/12/18 10/12/18 10/12/18 08:38 10:03 15:50 WBC Hgb Hct MCV RDW Plt Count [place] % (Auto) [place] # Seg Neutrophils % Seg Neuts % (Manual) Lymphocytes % (Manual) Monocytes % (Manual) Seg Neutrophils # Seg Neutrophils # Man Lymphocytes # (Manual) Monocytes # (Manual) APTT POC ABG pH POC ABG pCO2 POC ABG pO2 Sodium Potassium Chloride Carbon Dioxide BUN Creatinine Glucose POC Glucose 138 H 148 H 221 H Lactic Acid Calcium Phosphorus Total Bilirubin AST ALT Total Creatine Kinase CK-MB (CK-2) Troponin T Total Protein Albumin HDL Cholesterol Salicylates Acetaminophen 10/12/18 10/12/18 10/12/18 18:39 20:56 21:34 WBC Hgb Hct MCV RDW Plt Count [place] % (Auto) [place] # Seg Neutrophils % Seg Neuts % (Manual) Lymphocytes % (Manual) Monocytes % (Manual) Seg Neutrophils # Seg Neutrophils # Man Lymphocytes # (Manual) Monocytes # (Manual) APTT POC ABG pH 7.336 L POC ABG pCO2 46.0 H POC ABG pO2 Sodium Potassium Chloride Carbon Dioxide BUN Creatinine Glucose POC Glucose 255 H 260 H Lactic Acid Calcium Phosphorus Total Bilirubin AST ALT Total Creatine Kinase CK-MB (CK-2) Troponin T Total Protein Albumin HDL Cholesterol Salicylates Acetaminophen 10/13/18 10/13/18 10/13/18 02:29 05:09 05:40 WBC 17.0 H Hgb Hct MCV RDW Plt Count [place] % (Auto) 9.2 H [place] # 1.6 H Seg Neutrophils % 76.2 H Seg Neuts % (Manual) Lymphocytes % (Manual) Monocytes % (Manual) Seg Neutrophils # 12.9 H Seg Neutrophils # Man Lymphocytes # (Manual) Monocytes # (Manual) APTT POC ABG pH POC ABG pCO2 POC ABG pO2 Sodium Potassium Chloride Carbon Dioxide BUN Creatinine Glucose POC Glucose 216 H 249 H Lactic Acid Calcium Phosphorus Total Bilirubin AST ALT Total Creatine Kinase CK-MB (CK-2) Troponin T Total Protein Albumin HDL Cholesterol Salicylates Acetaminophen 10/13/18 10/13/18 10/13/18 05:40 05:40 09:46 WBC Hgb Hct MCV RDW Plt Count [place] % (Auto) [place] # Seg Neutrophils % Seg Neuts % (Manual) Lymphocytes % (Manual) Monocytes % (Manual) Seg Neutrophils # Seg Neutrophils # Man Lymphocytes # (Manual) Monocytes # (Manual) APTT POC ABG pH POC ABG pCO2 POC ABG pO2 Sodium 146 H Potassium Chloride 109.8 H Carbon Dioxide BUN 35 H Creatinine Glucose 245 H POC Glucose 235 H Lactic Acid Calcium 7.9 L Phosphorus Total Bilirubin AST ALT Total Creatine Kinase CK-MB (CK-2) Troponin T 0.952 H* D Total Protein Albumin HDL Cholesterol Salicylates Acetaminophen 10/13/18 10/13/18 10/13/18 13:12 13:58 16:15 WBC Hgb Hct MCV RDW Plt Count [place] % (Auto) [place] # Seg Neutrophils % Seg Neuts % (Manual) Lymphocytes % (Manual) Monocytes % (Manual) Seg Neutrophils # Seg Neutrophils # Man Lymphocytes # (Manual) Monocytes # (Manual) APTT POC ABG pH POC ABG pCO2 46.2 H 51.2 H POC ABG pO2 52 L Sodium Potassium Chloride Carbon Dioxide BUN Creatinine Glucose POC Glucose Lactic Acid Calcium Phosphorus Total Bilirubin AST ALT Total Creatine Kinase CK-MB (CK-2) Troponin T 0.816 H* Total Protein Albumin HDL Cholesterol Salicylates Acetaminophen 10/13/18 10/13/18 10/14/18 17:30 21:25 01:49 WBC Hgb Hct MCV RDW Plt Count [place] % (Auto) [place] # Seg Neutrophils % Seg Neuts % (Manual) Lymphocytes % (Manual) Monocytes % (Manual) Seg Neutrophils # Seg Neutrophils # Man Lymphocytes # (Manual) Monocytes # (Manual) APTT POC ABG pH POC ABG pCO2 POC ABG pO2 Sodium Potassium Chloride Carbon Dioxide BUN Creatinine Glucose POC Glucose 139 H 205 H 166 H Lactic Acid Calcium Phosphorus Total Bilirubin AST ALT Total Creatine Kinase CK-MB (CK-2) Troponin T Total Protein Albumin HDL Cholesterol Salicylates Acetaminophen 10/14/18 10/14/18 10/14/18 04:52 05:32 09:45 WBC Hgb 11.4 L Hct 34.5 L MCV RDW Plt Count 139 L [place] % (Auto) [place] # Seg Neutrophils % Seg Neuts % (Manual) Lymphocytes % (Manual) Monocytes % (Manual) Seg Neutrophils # Seg Neutrophils # Man Lymphocytes # (Manual) Monocytes # (Manual) APTT POC ABG pH POC ABG pCO2 56.0 H POC ABG pO2 Sodium Potassium Chloride Carbon Dioxide BUN Creatinine Glucose POC Glucose 164 H Lactic Acid Calcium Phosphorus Total Bilirubin AST ALT Total Creatine Kinase CK-MB (CK-2) Troponin T Total Protein Albumin HDL Cholesterol Salicylates Acetaminophen 10/14/18 10/14/18 10/14/18 09:45 10:54 12:20 WBC Hgb Hct MCV RDW Plt Count [place] % (Auto) [place] # Seg Neutrophils % Seg Neuts % (Manual) Lymphocytes % (Manual) Monocytes % (Manual) Seg Neutrophils # Seg Neutrophils # Man Lymphocytes # (Manual) Monocytes # (Manual) APTT POC ABG pH POC ABG pCO2 POC ABG pO2 Sodium 148 H Potassium Chloride 107.3 H Carbon Dioxide 34 H D BUN Creatinine 0.7 L D Glucose 191 H POC Glucose 173 H 158 H Lactic Acid Calcium 7.3 L Phosphorus Total Bilirubin AST 110 H ALT 91 H Total Creatine Kinase CK-MB (CK-2) Troponin T Total Protein 4.9 L Albumin 2.0 L HDL Cholesterol Salicylates Acetaminophen 10/14/18 10/14/18 10/15/18 18:30 21:54 02:12 WBC Hgb Hct MCV RDW Plt Count [place] % (Auto) [place] # Seg Neutrophils % Seg Neuts % (Manual) Lymphocytes % (Manual) Monocytes % (Manual) Seg Neutrophils # Seg Neutrophils # Man Lymphocytes # (Manual) Monocytes # (Manual) APTT POC ABG pH POC ABG pCO2 POC ABG pO2 Sodium Potassium Chloride Carbon Dioxide BUN Creatinine Glucose POC Glucose 108 H 110 H 164 H Lactic Acid Calcium Phosphorus Total Bilirubin AST ALT Total Creatine Kinase CK-MB (CK-2) Troponin T Total Protein Albumin HDL Cholesterol Salicylates Acetaminophen 10/15/18 10/15/18 10/15/18 04:19 04:55 05:43 WBC Hgb Hct MCV RDW Plt Count [place] % (Auto) [place] # Seg Neutrophils % Seg Neuts % (Manual) Lymphocytes % (Manual) Monocytes % (Manual) Seg Neutrophils # Seg Neutrophils # Man Lymphocytes # (Manual) Monocytes # (Manual) APTT POC ABG pH 7.491 H POC ABG pCO2 45.1 H 47.3 H POC ABG pO2 78 L Sodium Potassium Chloride Carbon Dioxide BUN Creatinine Glucose POC Glucose 250 H Lactic Acid Calcium Phosphorus Total Bilirubin AST ALT Total Creatine Kinase CK-MB (CK-2) Troponin T Total Protein Albumin HDL Cholesterol Salicylates Acetaminophen 10/15/18 10/15/18 10/15/18 06:20 12:00 12:00 WBC Hgb 11.7 L 11.5 L Hct 34.7 L 34.0 L MCV RDW Plt Count [place] % (Auto) [place] # Seg Neutrophils % Seg Neuts % (Manual) Lymphocytes % (Manual) Monocytes % (Manual) Seg Neutrophils # Seg Neutrophils # Man Lymphocytes # (Manual) Monocytes # (Manual) APTT POC ABG pH POC ABG pCO2 POC ABG pO2 Sodium 147 H Potassium Chloride 108.5 H Carbon Dioxide BUN Creatinine 0.7 L Glucose 209 H POC Glucose Lactic Acid Calcium 7.3 L Phosphorus Total Bilirubin AST ALT Total Creatine Kinase CK-MB (CK-2) Troponin T Total Protein Albumin HDL Cholesterol Salicylates Acetaminophen 10/15/18 10/15/18 12:11 15:48 WBC Hgb Hct MCV RDW Plt Count [place] % (Auto) [place] # Seg Neutrophils % Seg Neuts % (Manual) Lymphocytes % (Manual) Monocytes % (Manual) Seg Neutrophils # Seg Neutrophils # Man Lymphocytes # (Manual) Monocytes # (Manual) APTT POC ABG pH POC ABG pCO2 POC ABG pO2 Sodium Potassium Chloride Carbon Dioxide BUN Creatinine Glucose POC Glucose 197 H 220 H Lactic Acid Calcium Phosphorus Total Bilirubin AST ALT Total Creatine Kinase CK-MB (CK-2) Troponin T Total Protein Albumin HDL Cholesterol Salicylates Acetaminophen - Diagnostic Findings Additional findings: MRI Brain numerous embolic strokes with hemorrhagic conversion, old craniotomy echo EF 25-30% QUIQUE pending carotid doppler left 50-69% occlusion EEG pending MRA head- no occlusion
[2018-10-16] MEDS: UNASYN/NS 3 GM/100 ML 3 GM/100 ML BAG IV SCH ×4 (00:52→18:08)
[2018-10-16] MEDS: LOPRESSOR IV SCH ×4 (00:52→18:08)
[2018-10-16] MEDS: HumuLIN R SUB-Q SCH ×5 (02:27→22:34)
--- NOTE | 2018-10-16 02:47 | XRay Report ---
PROCEDURE: XR CHEST 1V AP TECHNIQUE: Chest radiograph single view. HISTORY: follow up respiratory failure COMPARISONS: October 15, 2018 . FINDINGS: Heart: Normal. Mediastinum/Vessels: Normal. Lungs/Pleural space: Lungs are expanded. There are mild fibrotic changes. There are no acute infiltr ates, effusions or pneumothoraces.. Bony thorax: No acute osseous abnormality. Life support devices: Endotracheal tube is in the mid trachea. NG tube is in the stomach. There is a right-sided PICC line. The tip is in the superior vena cava.. IMPRESSION: Heart size is normal.. Lungs are expanded. There are mild fibrotic changes. There are no acute infiltrates, effusions or pne umothoraces.. Endotracheal tube is in the mid trachea. NG tube is in the stomach. There is a right-sided PICC line. The tip is in the superior vena cava.. This document is electronically signed by Ketan Galindo MD., Oct 16 2018 02:45:17 AM ET
[2018-10-16] MEDS: DUONEB *Not for PRN Use IH SCH ×4 (03:53→20:46)
[2018-10-16] MEDS: fentaNYL DRIP Premix 2,000 MCG/100 ML BAG IV SCH (07:00)
--- NOTE | 2018-10-16 09:23 | Progress Note ---
Assessment and Plan Cont IV lopressor. Pt may benefit from heparin gtt and/or anti-platelet therapy in setting of NSTEMI and paroxysmal AFib. However, pt with reported history of hemorrhagic CVA in 03/2018 which required bore holes and craniotomy at [place]. Pt now found to have acute ischemic CVA - ? embolic etiology. Pt also noted to have bilateral ischemic changes to his lower extremities and had an arterial duplex of his bilateral lower extremities that demonstrated acute thrombus in bilateral lower extremities - vascular is following. Pt with mild anemia and thrombocytopenia. No systemic AC at this time in the setting of all of theses issues. Per neurology - Would not anticoagulate at this time. Consider repeat Ct head in 10-14 days and if no remaining hemorrhage could start antiplatelet therapy. Consider hematology consultation per primary. HIT panel pending results. QUIQUE ordered to r/o cardioembolic source for CVA and BLE thrombus. Unable to proceed with QUIQUE as planned today as pt received tube feeing overnight despite NPO after MN order. Will plan for QUIQUE tomorrow AM. NPO AFTER MN. The patient has been seen in conjunction with Dr. Sher Green who agrees with the assessment and plan of care. - Patient Problems (1) Altered mental state Current Visit: Yes Status: Acute Qualifiers: Altered mental status type: unspecified Qualified Code(s): R41.82 - Altered mental status, unspecified (2) Opiate overdose Current Visit: Yes Status: Suspected (3) Acute CVA (cerebrovascular accident) Current Visit: Yes Status: Acute (4) Cardiomyopathy Current Visit: Yes Status: Chronic (5) Paroxysmal atrial fibrillation Current Visit: Yes Status: Acute (6) Seizure Current Visit: Yes Status: Acute (7) Acute respiratory failure Current Visit: Yes Status: Acute (8) NSTEMI (non-ST elevated myocardial infarction) Current Visit: Yes Status: Acute (9) 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 Current Visit: Yes Status: Chronic (10) Hypotension Current Visit: Yes Status: Resolved Qualifiers: Hypotension type: unspecified hypotension type Qualified Code(s): I95.9 - Hypotension, unspecified (11) Acute renal insufficiency Current Visit: Yes Status: Acute (12) Lactic acid acidosis Current Visit: Yes Status: Acute (13) Diabetes mellitus with hyperglycemia Current Visit: Yes Status: Acute (14) Elevated liver enzymes Current Visit: Yes Status: Acute (15) History of hepatitis Current Visit: Yes Status: Chronic (16) History of rheumatic fever as a child Current Visit: Yes Status: Chronic (17) Polysubstance abuse Current Visit: Yes Status: Chronic (18) Tobacco use Current Visit: Yes Status: Chronic (19) Sepsis Current Visit: Yes Status: Acute Qualifiers: Sepsis type: sepsis due to unspecified organism Qualified Code(s): A41.9 - Sepsis, unspecified organism (20) Arterial thrombosis Current Visit: Yes Status: Acute Subjective Date of service: 10/16/18 Principal diagnosis: Ac hypercapnic hypoxemic Resp failure; Drug OD; AE-COPD; NINOSKA; Seizures Interval history: Pt remains intubated, in SR on telemetry. Objective Last Vital Signs Temp 99.4 F 10/16/18 08:00 Pulse 112 H 10/16/18 09:07 Resp 14 10/16/18 09:07 BP 102/58 10/16/18 09:07 Pulse Ox 97 10/16/18 09:07 - Physical Examination General: Other (intubated) Neck: Positive: neck supple Cardiac: Positive: Reg Rate and Rhythm, S1/S2 Lungs: Positive: Decreased Breath Sounds, Ventilated Respirations Neuro: Positive: Other (intubated) Abdomen: Positive: Soft. Negative: Tender Skin: Negative: Rash Extremities: Present: Other (chronic skin changes noted bilaterally. Patient has mottling of the left leg just proximal to the ankle) - Labs and Meds CBC 10/15/18 Range/Units 12:00 WBC 9.0 (4.5-11.0) K/mm3 RBC 3.70 (3.65-5.03) M/mm3 Hgb 11.5 L (11.8-15.2) gm/dl Hct 34.0 L (35.5-45.6) % Plt Count 145 (140-440) K/mm3 Comprehensive Metabolic Panel 10/15/18 Range/Units 12:00 Sodium 147 H (137-145) mmol/L Potassium 3.9 (3.6-5.0) mmol/L Chloride 108.5 H (98-107) mmol/L Carbon Dioxide 30 (22-30) mmol/L BUN 17 (9-20) mg/dL Creatinine 0.7 L (0.8-1.5) mg/dL Glucose 209 H (75-100) mg/dL Calcium 7.3 L (8.4-10.2) mg/dL - Imaging and Cardiology EKG: report reviewed, image reviewed Echo: report reviewed (TDS, mild LVH, severe global hypokinesis of LV, unable to estimate LVEF, trace TR. ) - EKG Sinus rhythms and dysrhythmias: sinus rhythm - Allied health notes Allied health notes reviewed: nursing
--- NOTE | 2018-10-16 09:32 | Progress Note ---
Assessment and Plan Await improvement in neurologic status prior to initiation of anti-coagulation Subjective Date of service: 10/16/18 Principal diagnosis: Ac hypercapnic hypoxemic Resp failure; Drug OD; AE-COPD; NINOSKA; Seizures Interval history: Stable, intubated, no neurologic improvement. Objective - Constitutional Vitals: Vital Signs - 12hr 10/15/18 10/15/18 10/15/18 21:45 22:00 22:15 Temperature Pulse Rate 91 H 102 H 99 H Pulse Rate [ Anterior Bilateral Throughout] Respiratory 15 14 12 Rate Respiratory Rate [Anterior Bilateral Throughout] Blood Pressure 107/59 99/48 98/48 O2 Sat by Pulse 93 91 91 Oximetry 10/15/18 10/15/18 10/15/18 22:30 22:45 23:00 Temperature Pulse Rate 99 H 103 H 100 H Pulse Rate [ Anterior Bilateral Throughout] Respiratory 14 13 11 L Rate Respiratory Rate [Anterior Bilateral Throughout] Blood Pressure 100/48 101/54 105/48 O2 Sat by Pulse 91 92 Oximetry 10/15/18 10/15/18 10/15/18 23:15 23:26 23:30 Temperature Pulse Rate 96 H 97 H 96 H Pulse Rate [ Anterior Bilateral Throughout] Respiratory 13 12 Rate Respiratory Rate [Anterior Bilateral Throughout] Blood Pressure 101/51 101/51 99/51 O2 Sat by Pulse 95 94 Oximetry 10/15/18 10/15/18 10/16/18 23:45 23:51 00:00 Temperature 99.8 F H Pulse Rate 98 H 102 H 98 H Pulse Rate [ Anterior Bilateral Throughout] Respiratory 14 14 14 Rate Respiratory Rate [Anterior Bilateral Throughout] Blood Pressure 99/53 99/53 101/52 O2 Sat by Pulse 96 96 96 Oximetry 10/16/18 10/16/18 10/16/18 00:15 00:30 00:45 Temperature Pulse Rate 97 H 98 H 94 H Pulse Rate [ Anterior Bilateral Throughout] Respiratory 15 13 13 Rate Respiratory Rate [Anterior Bilateral Throughout] Blood Pressure 97/50 93/55 101/50 O2 Sat by Pulse 96 95 95 Oximetry 10/16/18 10/16/18 10/16/18 00:52 01:00 01:15 Temperature Pulse Rate 91 H 88 88 Pulse Rate [ Anterior Bilateral Throughout] Respiratory 12 15 Rate Respiratory Rate [Anterior Bilateral Throughout] Blood Pressure 101/50 98/53 100/51 O2 Sat by Pulse 95 Oximetry 10/16/18 10/16/18 10/16/18 01:30 01:45 02:00 Temperature Pulse Rate 90 92 H 88 Pulse Rate [ 97 H Anterior Bilateral Throughout] Respiratory 15 11 L 13 Rate Respiratory 14 Rate [Anterior Bilateral Throughout] Blood Pressure 101/51 107/52 95/51 O2 Sat by Pulse 95 96 95 Oximetry 10/16/18 10/16/18 10/16/18 02:15 02:30 02:45 Temperature Pulse Rate 88 90 91 H Pulse Rate [ Anterior Bilateral Throughout] Respiratory 15 12 18 Rate Respiratory Rate [Anterior Bilateral Throughout] Blood Pressure 95/53 104/50 105/53 O2 Sat by Pulse 94 95 Oximetry 10/16/18 10/16/18 10/16/18 02:54 03:00 03:15 Temperature Pulse Rate 103 H 89 87 Pulse Rate [ Anterior Bilateral Throughout] Respiratory 12 13 Rate Respiratory Rate [Anterior Bilateral Throughout] Blood Pressure 105/53 101/59 110/54 O2 Sat by Pulse 97 96 Oximetry 10/16/18 10/16/18 10/16/18 03:30 03:45 03:57 Temperature 99.3 F Pulse Rate 89 86 Pulse Rate [ Anterior Bilateral Throughout] Respiratory 13 14 17 Rate Respiratory Rate [Anterior Bilateral Throughout] Blood Pressure 105/55 102/53 102/53 O2 Sat by Pulse 95 97 97 Oximetry 10/16/18 10/16/18 10/16/18 04:00 04:15 04:30 Temperature Pulse Rate 87 89 90 Pulse Rate [ Anterior Bilateral Throughout] Respiratory 14 14 15 Rate Respiratory Rate [Anterior Bilateral Throughout] Blood Pressure 106/56 106/56 107/58 O2 Sat by Pulse 94 Oximetry 10/16/18 10/16/18 10/16/18 04:45 05:00 05:15 Temperature Pulse Rate 93 H 92 H 94 H Pulse Rate [ Anterior Bilateral Throughout] Respiratory 12 15 13 Rate Respiratory Rate [Anterior Bilateral Throughout] Blood Pressure 108/55 105/56 109/59 O2 Sat by Pulse 94 Oximetry 10/16/18 10/16/18 10/16/18 05:30 05:45 06:00 Temperature Pulse Rate 99 H 97 H 91 H Pulse Rate [ Anterior Bilateral Throughout] Respiratory 14 14 13 Rate Respiratory Rate [Anterior Bilateral Throughout] Blood Pressure 106/61 104/50 104/56 O2 Sat by Pulse 92 92 Oximetry 10/16/18 10/16/18 10/16/18 06:15 06:31 06:45 Temperature Pulse Rate 87 96 H 95 H Pulse Rate [ Anterior Bilateral Throughout] Respiratory 13 15 22 Rate Respiratory Rate [Anterior Bilateral Throughout] Blood Pressure 103/56 129/66 110/68 O2 Sat by Pulse 92 97 95 Oximetry 10/16/18 10/16/18 10/16/18 07:00 08:00 08:45 Temperature 99.4 F Pulse Rate 95 H Pulse Rate [ 106 H Anterior Bilateral Throughout] Respiratory 12 Rate Respiratory 13 Rate [Anterior Bilateral Throughout] Blood Pressure 120/65 O2 Sat by Pulse 97 Oximetry 10/16/18 10/16/18 09:00 09:07 Temperature Pulse Rate 112 H Pulse Rate [ 106 H Anterior Bilateral Throughout] Respiratory 14 Rate Respiratory 17 Rate [Anterior Bilateral Throughout] Blood Pressure 102/58 O2 Sat by Pulse 97 Oximetry General appearance: Present: other (intubated,obtunded) - Labs CBC & Chem 7: 10/15/18 12:00 10/15/18 12:00 Labs: Abnormal lab results 10/15/18 10/15/18 10/15/18 Range/Units 12:00 12:00 12:11 Hgb 11.5 L (11.8-15.2) gm/dl Hct 34.0 L (35.5-45.6) % POC ABG pCO2 (35-45) Sodium 147 H (137-145) mmol/L Chloride 108.5 H (98-107) mmol/L Creatinine 0.7 L (0.8-1.5) mg/dL Glucose 209 H (75-100) mg/dL POC Glucose 197 H (70-105) Calcium 7.3 L (8.4-10.2) mg/dL 10/15/18 10/15/18 10/15/18 Range/Units 15:48 18:34 21:29 Hgb (11.8-15.2) gm/dl Hct (35.5-45.6) % POC ABG pCO2 (35-45) Sodium (137-145) mmol/L Chloride (98-107) mmol/L Creatinine (0.8-1.5) mg/dL Glucose (75-100) mg/dL POC Glucose 220 H 249 H 209 H (70-105) Calcium (8.4-10.2) mg/dL 0510/16/18 10/16/18 Range/Units 02:16 03:50 05:57 Hgb (11.8-15.2) gm/dl Hct (35.5-45.6) % POC ABG pCO2 55.8 H (35-45) Sodium (137-145) mmol/L Chloride (98-107) mmol/L Creatinine (0.8-1.5) mg/dL Glucose (75-100) mg/dL POC Glucose 110 H 209 H (70-105) Calcium (8.4-10.2) mg/dL Medications & Allergies - Medications Allergies/Adverse Reactions: Allergies No Known Allergies Allergy (Verified 10/31/14 11:20) Home Medications: Home Medications Medication Instructions Recorded Confirmed Last Taken Type Gabapentin [Neurontin] 90 mg PO Q8HR 04/22/15 04/22/15 04/21/15 History ALPRAZolam [Xanax TAB] 1 mg PO TID PRN #30 tablet 03/28/16 Unknown Rx Albuterol Sulfate [Ventolin HFA] 2 puff IH Q4H PRN #1 [id number] 03/28/16 Unknown Rx Ciprofloxacin HCl [Ciprofloxacin 500 mg PO Q12HR #30 tab 03/28/16 Unknown Rx TAB] Citalopram [celeXA] 10 mg PO QDAY #30 tablet 03/28/16 Unknown Rx Nicotine [Habitrol] 14 mg TD QDAY #30 patch 03/28/16 Unknown Rx Sitagliptin Phos/Metformin HCl 1 tab PO QDAY #30 tbmp.24hr 03/28/16 Unknown Rx [Janumet XR 100-1,000 mg] oxyCODONE /ACETAMINOPHEN [Percocet 1 tab PO Q6H PRN #60 tablet 03/28/16 Unknown Rx 5/325 mg] Active Medications: Generic Name Dose Route Start Last Admin Trade Name Freq PRN Reason Stop Dose Admin Acetaminophen 650 mg 10/11/18 04:04 10/11/18 13:40 Tylenol PO 650 mg Q4H PRN Administration Pain MILD(1-3)/Fever >100.5/HOLLINS Acetaminophen 650 mg 10/12/18 01:26 Tylenol WA Q4H PRN Pain, Mild(1-3)/Fever>100.5/HOLLINS Albuterol/Ipratropium 1 ampul 10/11/18 14:00 10/16/18 08:45 Duoneb *Not For Prn Use* IH 1 ampul Q6HRT ISAAC Administration Lipase/Protease/Amylase 1 each 10/11/18 14:12 Pancresolo Mcgrath 10,500 Unit FEEDTUBE PRN PRN For Clogged Feeding Tube Aspirin 325 mg 10/13/18 10:00 10/15/18 11:52 Aspirin PO 325 mg QDAY ISAAC Administration Dextrose 0 ml 10/11/18 03:57 10/11/18 10:18 D50w (25gm) Syringe IV 10 ml PRN PRN Administration Hypoglycemia Famotidine 20 mg 10/15/18 10:00 10/15/18 21:43 Pepcid PO 20 mg BID ISAAC Administration Fentanyl 50 mcg 10/11/18 13:00 10/13/18 02:27 Sublimaze IV 50 mcg Q10MIN PRN Administration ANALGESIA Hydrophilic Ointment 1 applic 10/11/18 14:00 Vaseline Lip Therapy TP Q2HR PRN Dry Lips Norepinephrine 4 mg in 250 mls @ 7.5 mls/hr 10/11/18 04:00 10/15/18 08:00 Levophed Drip 4 Mg/Ns 250 Ml IV 0 mcg/min TITR ISAAC 0 mls/hr Titration Protocol 2 MCG/MIN Ampicillin Sodium/Sulbactam Sodium 3 gm in 100 mls @ 200 mls/hr 10/13/18 14:00 10/16/18 00:52 Unasyn/Ns 3 Gm/100 Ml IV 200 mls/hr Q6HR ISAAC Administration Protocol Fentanyl Citrate 2,000 mcg in 100 mls @ 3.51 mls/hr 10/14/18 15:00 10/16/18 09:00 Fentanyl Drip Premix IV 0 mcg/kg/hr TITR ISAAC 0 mls/hr Titration Protocol 1 MCG/KG/HR Insulin Human Regular 0 units 10/12/18 14:00 10/16/18 02:27 Humulin R SUB-Q Not Given Q4HR [facility] Protocol Metoprolol Tartrate 2.5 mg 10/15/18 12:00 10/16/18 00:52 Lopressor IV 2.5 mg Q6HR ISAAC Administration Morphine Sulfate 2 mg 10/14/18 11:29 10/14/18 14:59 Morphine IV 2 mg Q4H PRN Administration severe pain 7-10 Multi-Ingred Cream/Lotion/Oil/Oint 1 applic 10/11/18 14:00 Artificial Tears Ophth Oint OU Q4HR PRN Dry Eye(s) Ondansetron HCl 4 mg 10/11/18 04:04 Zofran IV Q8H PRN Nausea And Vomiting Quetiapine Fumarate 200 mg 10/14/18 22:00 10/15/18 21:30 Seroquel PO 200 mg QHS ISAAC Administration Simple Syrup 15 ml 10/11/18 14:12 Simple Syrup FEEDTUBE PRN PRN Hypoglycemia Simple Syrup 30 ml 10/11/18 14:12 Simple Syrup FEEDTUBE PRN PRN Hypoglycemia Sodium Bicarbonate 325 mg 10/11/18 14:12 Sodium Bicarbonate FEEDTUBE PRN PRN For Clogged Feeding Tube Sodium Chloride 10 ml 10/11/18 10:00 10/15/18 21:31 Sodium Chloride Flush Syringe 10 Ml IV 10 ml BID ISAAC Administration Sodium Chloride 10 ml 10/11/18 04:04 Sodium Chloride Flush Syringe 10 Ml IV PRN PRN LINE FLUSH
[2018-10-16] MEDS: ASPIRIN PO SCH (10:43)
[2018-10-16] MEDS: PEPCID PO SCH ×2 (10:43→22:36)
--- NOTE | 2018-10-16 10:44 | Progress Note ---
Assessment and Plan Cultures: Blood culture 10/11/2018 no growth Sputum culture 10/12/2018 no growth Urine culture 10/11/2018 neg Assessment: 58 y/o male with history of hemorrhagic CVA in 03/2018, rheumatic fever as a child, asthma, HTN, DM, hepatitis, tobacco use, polysubstance abuse; admitted on 10/10/2018 due to altered mental status: 1) Acute encephalopathy: Improving. likely due to opioid overdose 2) Sepis: Improved. Low grade fevers continuing. Etiology most likely Left leg Ischemia. 3) LLL pneumonia with mucous plugging on CTA. On CPAP 4) Elevated LFTs from sepsis 5) NINOSKA: creatinine now 0.7 6) PVD: left leg ischemia.. Dry gangrene. 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 [facility] M: [phone] O:[phone] Subjective Date of service: 10/16/18 Principal diagnosis: Ac hypercapnic hypoxemic Resp failure; Drug OD; AE-COPD; NINOSKA; Seizures Interval history: Patient seen and examined. On CPAP. Eyes open to name. Following simple commands. Objective - Exam Narrative Exam: General: Awake Alert. On CPAP Eyes: anicteric sclerae, moist conjunctivae; no lid-lag; PERRLA HENT: Atraumatic; oropharynx +ETT +OGT Neck: Trachea midline; supple, no thyromegaly or lymphadenopathy Lungs: art rhonchi CV: tachycardic Abdomen: Soft, mild tenderness Extremities: No peripheral edema . PVD - left leg ischemia. Skin: no rash Psych:lethargic Neuro: lethargic - Constitutional Vitals: Vital Signs Temp Pulse Resp BP Pulse Ox 99.4 F 112 H 14 102/58 97 10/16/18 08:00 10/16/18 09:07 10/16/18 09:07 10/16/18 09:07 10/16/18 09:07 Temperature -Last 24 Hours Temperature 99.4 F Temperature 99.3 F Temperature 99.8 F Temperature 98.5 F Temperature 99.8 F - Labs CBC & Chem 7: 10/15/18 12:00 10/15/18 12:00 Labs: Abnormal lab results 10/15/18 10/15/18 10/15/18 Range/Units 12:00 12:00 12:11 Hgb 11.5 L (11.8-15.2) gm/dl Hct 34.0 L (35.5-45.6) % POC ABG pCO2 (35-45) Sodium 147 H (137-145) mmol/L Chloride 108.5 H (98-107) mmol/L Creatinine 0.7 L (0.8-1.5) mg/dL Glucose 209 H (75-100) mg/dL POC Glucose 197 H (70-105) Calcium 7.3 L (8.4-10.2) mg/dL 10/15/18 10/15/18 10/15/18 Range/Units 15:48 18:34 21:29 Hgb (11.8-15.2) gm/dl Hct (35.5-45.6) % POC ABG pCO2 (35-45) Sodium (137-145) mmol/L Chloride (98-107) mmol/L Creatinine (0.8-1.5) mg/dL Glucose (75-100) mg/dL POC Glucose 220 H 249 H 209 H (70-105) Calcium (8.4-10.2) mg/dL 10/16/18 10/16/18 10/16/18 Range/Units 02:16 03:50 05:57 Hgb (11.8-15.2) gm/dl Hct (35.5-45.6) % POC ABG pCO2 55.8 H (35-45) Sodium (137-145) mmol/L Chloride (98-107) mmol/L Creatinine (0.8-1.5) mg/dL Glucose (75-100) mg/dL POC Glucose 110 H 209 H (70-105) Calcium (8.4-10.2) mg/dL
[2018-10-16] MEDS: SODIUM CHLORIDE FLUSH SYRINGE 10 ML IV SCH (10:48)
--- NOTE | 2018-10-16 11:45 | Progress Note ---
Assessment and Plan Possible acute/subacute right FT CVA - Initial CT head had no acute finding, 10/13/18 found unable to move left side - MRI brain showed numerous acute/subacute multilobar infarcts involving the cerebrum and cerebellum including Hemorrhagic transformation of the right frontal and biparietal lobes - was Not a candidate for tPA, cont to monitor off aspirin per teleneurology Acute thrombus in bilateral lower extremitie - will not start heparin drip due to acute CVA - vascular consulted, medical Mx for now as not a candidate for surgical intervention as he can't be anticoagulated Severe sepsis with shock -Probably secondary to pneumonia -On IV broad-spectrum antibiotics with Unasyn -weaned off Levophed -Blood and sputum cultures negative so far Acute respiratory failure with hypoxia and hypercapnia -Probably secondary to acute COPD/asthma exacerbation and PNA -Status post intubation on mechanical ventilator -Pulmonology consulted, plan for extubation today LLL pneumonia with mucous plugging on CTA, POA - likely from aspiration? cont abx Hyperglycemia, not in DKA -s/p insulin drip, cont SSI for now with TF Acute toxic/metabolic encephalopathy -Secondary to drug overdose versus sepsis/DKA vs acute CVA -Initial Head CT scan was negative negative - repeat CT head and MRI showed numerous acute/subacute multilobar infarcts involving the cerebrum and cerebellum including Hemorrhagic transformation of the largest infarcts that involve the right frontal and biparietal lobes - neurology following the patient Seizure -s/p IV lorazepam drip, will defer to neurology for AED - EEG pending Elevated troponin -Probably secondary to demand ischemia from acute process and underlying CHF -Echocardiogram for further evaluation - Ef 25-30% -Cardiology consulted, recommended medical Mx for now, Acute systolic CHF, Ef 25-30% - monitor ins/os, medical Mx for now, cardiology following ARF, due to vasomotor nephropathy, resolved -On IV fluid, will cont to monitor creatinine level Hyperkalemia, resolved Abnormal LFT -Probably due to sepsis and chronic hepatitis C virus infection -Abdominal US showed no sign of cirrhosis Severe protein calorie malnutrition -Dietitian consulted DVT prophylaxis with heparin and GI prophylaxis with famotidine Disposition: Patient will be monitored at the ICU I spent 35 minutes providing critical care to this seriously ill patient who requires frequent reassessments of his cardiovascular, respiratory and neurologic status. Discussed with family/RN Brief History: Patient is a 58-year-old male who was brought to the ED by EMS on account of altered mental status. It was reported that patient was found unresponsive by friends and family. Patient's last known well time was 10:30 PM on 10/10/18. He was given Narcan by EMS en route to the hospital with minimal response. Patient began to seize as EMS pulled into the hospital. Per report, family told EMS that the patient overdosed and has been using Dilaudid. He was intubated in the ER to protect airway, admitted to ICU for further evaluation. MRI Brain: Numerous acute/subacute multilobar infarcts as described above involving the cerebrum and cerebellum. Hemorrhagic transformation of the largest infarcts that involve the right frontal and biparietal lobes and evidence of older hemorrhage at the margin of older cerebellar infarcts. Postsurgical changes in the posterior fossa and several small acute/subacute cerebellar infarcts at the margin of larger late subacute infarct. LE arterial doppler: 1. Occlusive thrombus within the right external iliac artery extending to the right common femoral artery. 2. Occlusive thrombus within the left distal popliteal artery extending to the anterior and posterior tibial arteries which are also occluded. Subjective Date of service: 10/16/18 Principal diagnosis: Ac hypercapnic hypoxemic Resp failure; Drug OD; AE-COPD; NINOSKA; Seizures Interval history: Patient seen and examined' Noted o/n event, discussed with RN/Pulmonary Patient remained intubated, plan for extubation today Discussed with Son at bedside Objective - Exam Narrative Exam: General appearance: Present: no acute distress, other (intubated, opens eyes to voice) - EENT Eyes: Present: irregular pupil (sluggish) ENT: other (patient is intubated) - Neck Neck: Present: supple - Respiratory Respiratory effort: normal Respiratory: bilateral: CTA - Cardiovascular Rhythm: regular (with tachycardia) Heart Sounds: Present: S1 & S2 - Extremities Extremity abnormal: b/l LE cyanosis (ischemic changes to the right foot and left foot ) - Abdominal General gastrointestinal: Present: soft, non-distended, normal bowel sounds Male genitourinary: Present: deferred - Integumentary Integumentary: Present: clear, warm, dry - Musculoskeletal Musculoskeletal: other (unable to assess because patient is intubated and sedated) - Psychiatric Psychiatric: other (unable to assess because patient is intubated and sedated) - Neurologic Neurologic: focal deficits (the patient is not moving his left upper or lower extremities) - Constitutional Vitals: Vital Signs - 12hr 10/15/18 10/16/18 10/16/18 23:51 00:00 00:15 Temperature 99.8 F H Pulse Rate 102 H 98 H 97 H Pulse Rate [ Anterior Bilateral Throughout] Pulse Rate [ From Monitor] Respiratory 14 14 15 Rate Respiratory Rate [Anterior Bilateral Throughout] Respiratory Rate [Right Arm ] Blood Pressure 99/53 101/52 97/50 O2 Sat by Pulse 96 96 96 Oximetry 10/16/18 10/16/18 10/16/18 00:30 00:45 00:52 Temperature Pulse Rate 98 H 94 H 91 H Pulse Rate [ Anterior Bilateral Throughout] Pulse Rate [ From Monitor] Respiratory 13 13 Rate Respiratory Rate [Anterior Bilateral Throughout] Respiratory Rate [Right Arm ] Blood Pressure 93/55 101/50 101/50 O2 Sat by Pulse 95 95 Oximetry 10/16/18 10/16/18 10/16/18 01:00 01:15 01:30 Temperature Pulse Rate 88 88 90 Pulse Rate [ Anterior Bilateral Throughout] Pulse Rate [ From Monitor] Respiratory 12 15 15 Rate Respiratory Rate [Anterior Bilateral Throughout] Respiratory Rate [Right Arm ] Blood Pressure 98/53 100/51 101/51 O2 Sat by Pulse 95 95 Oximetry 10/16/18 10/16/18 10/16/18 01:45 02:00 02:15 Temperature Pulse Rate 92 H 88 88 Pulse Rate [ 97 H Anterior Bilateral Throughout] Pulse Rate [ From Monitor] Respiratory 11 L 13 15 Rate Respiratory 14 Rate [Anterior Bilateral Throughout] Respiratory Rate [Right Arm ] Blood Pressure 107/52 95/51 95/53 O2 Sat by Pulse 96 95 94 Oximetry 10/16/18 10/16/18 10/16/18 02:30 02:45 02:54 Temperature Pulse Rate 90 91 H 103 H Pulse Rate [ Anterior Bilateral Throughout] Pulse Rate [ From Monitor] Respiratory 12 18 Rate Respiratory Rate [Anterior Bilateral Throughout] Respiratory Rate [Right Arm ] Blood Pressure 104/50 105/53 105/53 O2 Sat by Pulse 95 97 Oximetry 10/16/18 10/16/18 10/16/18 03:00 03:15 03:30 Temperature Pulse Rate 89 87 89 Pulse Rate [ Anterior Bilateral Throughout] Pulse Rate [ From Monitor] Respiratory 12 13 13 Rate Respiratory Rate [Anterior Bilateral Throughout] Respiratory Rate [Right Arm ] Blood Pressure 101/59 110/54 105/55 O2 Sat by Pulse 96 95 Oximetry 10/16/18 10/16/18 10/16/18 03:45 03:57 04:00 Temperature 99.3 F Pulse Rate 86 87 Pulse Rate [ Anterior Bilateral Throughout] Pulse Rate [ From Monitor] Respiratory 14 17 14 Rate Respiratory Rate [Anterior Bilateral Throughout] Respiratory Rate [Right Arm ] Blood Pressure 102/53 102/53 106/56 O2 Sat by Pulse 97 97 Oximetry 10/16/18 10/16/18 10/16/18 04:15 04:30 04:45 Temperature Pulse Rate 89 90 93 H Pulse Rate [ Anterior Bilateral Throughout] Pulse Rate [ From Monitor] Respiratory 14 15 12 Rate Respiratory Rate [Anterior Bilateral Throughout] Respiratory Rate [Right Arm ] Blood Pressure 106/56 107/58 108/55 O2 Sat by Pulse 94 Oximetry 10/16/18 10/16/18 10/16/18 05:00 05:15 05:30 Temperature Pulse Rate 92 H 94 H 99 H Pulse Rate [ Anterior Bilateral Throughout] Pulse Rate [ From Monitor] Respiratory 15 13 14 Rate Respiratory Rate [Anterior Bilateral Throughout] Respiratory Rate [Right Arm ] Blood Pressure 105/56 109/59 106/61 O2 Sat by Pulse 94 Oximetry 10/16/18 10/16/18 10/16/18 05:45 06:00 06:15 Temperature Pulse Rate 97 H 91 H 87 Pulse Rate [ Anterior Bilateral Throughout] Pulse Rate [ From Monitor] Respiratory 14 13 13 Rate Respiratory Rate [Anterior Bilateral Throughout] Respiratory Rate [Right Arm ] Blood Pressure 104/50 104/56 103/56 O2 Sat by Pulse 92 92 92 Oximetry 10/16/18 10/16/18 10/16/18 06:31 06:45 07:00 Temperature Pulse Rate 96 H 95 H 95 H Pulse Rate [ Anterior Bilateral Throughout] Pulse Rate [ From Monitor] Respiratory 15 22 12 Rate Respiratory Rate [Anterior Bilateral Throughout] Respiratory Rate [Right Arm ] Blood Pressure 129/66 110/68 120/65 O2 Sat by Pulse 97 95 97 Oximetry 10/16/18 10/16/18 10/16/18 08:00 08:45 09:00 Temperature 99.4 F Pulse Rate Pulse Rate [ 106 H 106 H Anterior Bilateral Throughout] Pulse Rate [ 109 H From Monitor] Respiratory 13 Rate Respiratory 13 17 Rate [Anterior Bilateral Throughout] Respiratory Rate [Right Arm ] Blood Pressure O2 Sat by Pulse 94 Oximetry 10/16/18 10/16/18 10/16/18 09:07 10:00 11:43 Temperature Pulse Rate 112 H Pulse Rate [ Anterior Bilateral Throughout] Pulse Rate [ From Monitor] Respiratory 14 20 Rate Respiratory Rate [Anterior Bilateral Throughout] Respiratory 22 Rate [Right Arm ] Blood Pressure 102/58 O2 Sat by Pulse 97 94 Oximetry - Labs CBC & Chem 7: 10/17/18 05:40 10/15/18 12:00 Labs: Abnormal lab results 10/15/18 10/15/18 10/15/18 Range/Units 12:00 12:00 12:11 Hgb 11.5 L (11.8-15.2) gm/dl Hct 34.0 L (35.5-45.6) % POC ABG pCO2 (35-45) Sodium 147 H (137-145) mmol/L Chloride 108.5 H (98-107) mmol/L Creatinine 0.7 L (0.8-1.5) mg/dL Glucose 209 H (75-100) mg/dL POC Glucose 197 H (70-105) Calcium 7.3 L (8.4-10.2) mg/dL 10/15/18 10/15/18 10/15/18 Range/Units 15:48 18:34 21:29 Hgb (11.8-15.2) gm/dl Hct (35.5-45.6) % POC ABG pCO2 (35-45) Sodium (137-145) mmol/L Chloride (98-107) mmol/L Creatinine (0.8-1.5) mg/dL Glucose (75-100) mg/dL POC Glucose 220 H 249 H 209 H (70-105) Calcium (8.4-10.2) mg/dL 10/16/18 10/16/18 10/16/18 Range/Units 02:16 03:50 05:57 Hgb (11.8-15.2) gm/dl Hct (35.5-45.6) % POC ABG pCO2 55.8 H (35-45) Sodium (137-145) mmol/L Chloride (98-107) mmol/L Creatinine (0.8-1.5) mg/dL Glucose (75-100) mg/dL POC Glucose 110 H 209 H (70-105) Calcium (8.4-10.2) mg/dL 10/16/18 Range/Units 10:51 Hgb (11.8-15.2) gm/dl Hct (35.5-45.6) % POC ABG pCO2 (35-45) Sodium (137-145) mmol/L Chloride (98-107) mmol/L Creatinine (0.8-1.5) mg/dL Glucose (75-100) mg/dL POC Glucose 198 H (70-105) Calcium (8.4-10.2) mg/dL
--- NOTE | 2018-10-16 13:16 | Progress Note ---
Assessment and Plan Acute hypoxemic respiratory failure, on mechanical ventilator support. Drug overdose. Acute chronic obstructive pulmonary disease exacerbation. Witnessed seizure en route. Acute kidney injury. Leukocytosis. Hypercapnia. Hyperkalemia. Metabolic acidosis. Lactic acidosis. Non-ST elevation myocardial infarction. Elevated serum transaminases. 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 - sedation target for RASS 0 to -1 (off sedation now) - continue bronchodilators with pulmonary hygiene per RT - continue GI & VTE prophylaxis - continue to wean supplemental oxygen to keep O2 sats 88-90% - continue lung protective strategies - azotemia per nephrology - Daily ABGs/CXR for now - VAP bundle addressed - Continue cardioprotective measures - Replete electrolytes as indicated - Tracheal aspirate, blood cultures remain negative to date - Continue bronchodilators with pulmonary hygiene per RT - Monitor renal indices closely - Avoid nephrotoxic agents, adjust all medications for CrCL - Strict intake and output monitoring - Tube feedings - Aspiration precautions - Accuchecks with glycemic control. Target glucose of 140-180 mg/dL - Maintenance of sleep -wake cycle - Mobility as tolerated by hemodynamics - Influenza and pneumonia vaccination per protocol ..care plan discussed at length with relative and patient at bedside ..discussed in ICU-IDT rounds PROGNOSIS: GUARDED CONDITION: CRITICAL CODE STATUS: FULL CODE The high probability of a clinically significant, sudden or life-threatening deterioration of the [respiratory, neurology, renal] system(s) required my full and direct attention, intervention and personal management. The aggregate critical care time was [36] minutes without overlap. Time includes spent on; [x] Data Review and interpretation [x] Patient assessment and monitoring of vital signs [x] Documentation [x] Medication orders and management Subjective Date of service: 10/16/18 Principal diagnosis: Ac hypercapnic hypoxemic Resp failure; Drug OD; AE-COPD; NINOSKA; Seizures Interval history: Patient is seen today for: Acute hypoxemic respiratory failure, on mechanical ventilator support; Drug overdose; Acute chronic obstructive pulmonary disease exacerbation; Witnessed seizure en route; Acute kidney injury; Leukocytosis; Hypercapnia. Seen and examined at bedside; 24-hour events reviewed; nursing and respiratory care staff consulted; no adverse overnight events reported to me; remains on MVS; Objective Vital Signs - 12hr 10/16/18 10/16/18 10/16/18 01:30 01:45 02:00 Temperature Pulse Rate 90 92 H 88 Pulse Rate [ 97 H Anterior Bilateral Throughout] Pulse Rate [ From Monitor] Respiratory 15 11 L 13 Rate Respiratory 14 Rate [Anterior Bilateral Throughout] Respiratory Rate [Right Arm ] Blood Pressure 101/51 107/52 95/51 O2 Sat by Pulse 95 96 95 Oximetry 10/16/18 10/16/18 10/16/18 02:15 02:30 02:45 Temperature Pulse Rate 88 90 91 H Pulse Rate [ Anterior Bilateral Throughout] Pulse Rate [ From Monitor] Respiratory 15 12 18 Rate Respiratory Rate [Anterior Bilateral Throughout] Respiratory Rate [Right Arm ] Blood Pressure 95/53 104/50 105/53 O2 Sat by Pulse 94 95 Oximetry 10/16/18 10/16/18 10/16/18 02:54 03:00 03:15 Temperature Pulse Rate 103 H 89 87 Pulse Rate [ Anterior Bilateral Throughout] Pulse Rate [ From Monitor] Respiratory 12 13 Rate Respiratory Rate [Anterior Bilateral Throughout] Respiratory Rate [Right Arm ] Blood Pressure 105/53 101/59 110/54 O2 Sat by Pulse 97 96 Oximetry 10/16/18 10/16/18 10/16/18 03:30 03:45 03:57 Temperature 99.3 F Pulse Rate 89 86 Pulse Rate [ Anterior Bilateral Throughout] Pulse Rate [ From Monitor] Respiratory 13 14 17 Rate Respiratory Rate [Anterior Bilateral Throughout] Respiratory Rate [Right Arm ] Blood Pressure 105/55 102/53 102/53 O2 Sat by Pulse 95 97 97 Oximetry 10/16/18 10/16/18 10/16/18 04:00 04:15 04:30 Temperature Pulse Rate 87 89 90 Pulse Rate [ Anterior Bilateral Throughout] Pulse Rate [ From Monitor] Respiratory 14 14 15 Rate Respiratory Rate [Anterior Bilateral Throughout] Respiratory Rate [Right Arm ] Blood Pressure 106/56 106/56 107/58 O2 Sat by Pulse 94 Oximetry 10/16/18 10/16/18 10/16/18 04:45 05:00 05:15 Temperature Pulse Rate 93 H 92 H 94 H Pulse Rate [ Anterior Bilateral Throughout] Pulse Rate [ From Monitor] Respiratory 12 15 13 Rate Respiratory Rate [Anterior Bilateral Throughout] Respiratory Rate [Right Arm ] Blood Pressure 108/55 105/56 109/59 O2 Sat by Pulse 94 Oximetry 10/16/18 10/16/18 10/16/18 05:30 05:45 06:00 Temperature Pulse Rate 99 H 97 H 91 H Pulse Rate [ Anterior Bilateral Throughout] Pulse Rate [ From Monitor] Respiratory 14 14 13 Rate Respiratory Rate [Anterior Bilateral Throughout] Respiratory Rate [Right Arm ] Blood Pressure 106/61 104/50 104/56 O2 Sat by Pulse 92 92 Oximetry 10/16/18 10/16/18 10/16/18 06:15 06:31 06:45 Temperature Pulse Rate 87 96 H 95 H Pulse Rate [ Anterior Bilateral Throughout] Pulse Rate [ From Monitor] Respiratory 13 15 22 Rate Respiratory Rate [Anterior Bilateral Throughout] Respiratory Rate [Right Arm ] Blood Pressure 103/56 129/66 110/68 O2 Sat by Pulse 92 97 95 Oximetry 10/16/18 10/16/18 10/16/18 07:00 08:00 08:45 Temperature 99.4 F Pulse Rate 95 H Pulse Rate [ 106 H Anterior Bilateral Throughout] Pulse Rate [ 109 H From Monitor] Respiratory 12 13 Rate Respiratory 13 Rate [Anterior Bilateral Throughout] Respiratory Rate [Right Arm ] Blood Pressure 120/65 O2 Sat by Pulse 97 94 Oximetry 10/16/18 10/16/18 10/16/18 09:00 09:07 10:00 Temperature Pulse Rate 112 H Pulse Rate [ 106 H Anterior Bilateral Throughout] Pulse Rate [ From Monitor] Respiratory 14 Rate Respiratory 17 Rate [Anterior Bilateral Throughout] Respiratory 22 Rate [Right Arm ] Blood Pressure 102/58 O2 Sat by Pulse 97 Oximetry 10/16/18 10/16/18 10/16/18 11:43 11:54 12:00 Temperature 100.1 F H Pulse Rate 114 H Pulse Rate [ Anterior Bilateral Throughout] Pulse Rate [ From Monitor] Respiratory 20 24 Rate Respiratory Rate [Anterior Bilateral Throughout] Respiratory Rate [Right Arm ] Blood Pressure 123/50 O2 Sat by Pulse 94 120 H Oximetry Constitutional: no acute distress, other (middle aged but chronically ill looking CM; Atraumatic) Eyes: non-icteric ENT: oropharynx moist, other (ETT 23 cm SHELBI) Neck: supple, no lymphadenopathy, no JVD Effort: mildly labored Ascultation: Bilateral: diminished breath sounds, rhonchi Percussion: Bilateral: not dull Cardiovascular: irregular rhythm, other (No R/M) Gastrointestinal: normoactive bowel sounds, soft, non-tender, non-distended Integumentary: other (poor turgor) Extremities: no cyanosis, no edema, pink and warm, pulses normal, no ischemia or petechiae Neurologic: unable to assess Psychiatric: other (unable to assess re: AMS) CBC and BMP: 10/15/18 12:00 10/15/18 12:00 ABG, PT/INR, D-dimer: ABG POC ABG pH 7.393 (7.35-7.45) 10/16/18 12:51 POC ABG pCO2 48.9 (35-45) H 10/16/18 12:51 POC ABG pO2 92 (80-105) 10/16/18 12:51 POC ABG HCO3 29.8 (22-26 mml/L) 10/16/18 12:51 POC ABG Total CO2 31 (23-27mmol/L) 10/16/18 12:51 POC ABG O2 Sat 97 10/16/18 12:51 PT/INR, D-dimer PT 14.7 Sec. (12.2-14.9) 10/11/18 08:29 INR 1.08 (0.87-1.13) 10/11/18 08:29 Abnormal lab findings: Abnormal Labs 10/11/18 10/11/18 10/11/18 00:16 00:16 00:16 WBC 20.1 H Hgb Hct MCV 98 H RDW 15.4 H Plt Count [place] % (Auto) [place] # Seg Neutrophils % Seg Neuts % (Manual) Lymphocytes % (Manual) 5.0 L Monocytes % (Manual) 25.0 H Seg Neutrophils # Seg Neutrophils # Man 9.2 H Lymphocytes # (Manual) 1.0 L Monocytes # (Manual) 5.0 H APTT POC ABG pH POC ABG pCO2 POC ABG pO2 Sodium Potassium 5.8 H Chloride Carbon Dioxide 17 L BUN Creatinine 2.2 H Glucose 348 H POC Glucose Lactic Acid 13.70 H* Calcium 7.7 L Phosphorus Total Bilirubin 1.50 H AST 179 H ALT 110 H Total Creatine Kinase 324 H CK-MB (CK-2) Troponin T 0.257 H* Total Protein 5.9 L Albumin 2.9 L HDL Cholesterol 19 L Salicylates Acetaminophen 05/07/3110/11/18 10/11/18 00:16 00:16 01:21 WBC Hgb Hct MCV RDW Plt Count [place] % (Auto) [place] # Seg Neutrophils % Seg Neuts % (Manual) Lymphocytes % (Manual) Monocytes % (Manual) Seg Neutrophils # Seg Neutrophils # Man Lymphocytes # (Manual) Monocytes # (Manual) APTT POC ABG pH 7.110 L POC ABG pCO2 50.3 H POC ABG pO2 65 L Sodium Potassium Chloride Carbon Dioxide BUN Creatinine Glucose POC Glucose Lactic Acid Calcium Phosphorus Total Bilirubin AST ALT Total Creatine Kinase CK-MB (CK-2) Troponin T Total Protein Albumin HDL Cholesterol Salicylates < 0.3 L Acetaminophen < 5.0 L 10/11/18 10/11/18 10/11/18 01:22 03:27 04:14 WBC Hgb Hct MCV RDW Plt Count [place] % (Auto) [place] # Seg Neutrophils % Seg Neuts % (Manual) Lymphocytes % (Manual) Monocytes % (Manual) Seg Neutrophils # Seg Neutrophils # Man Lymphocytes # (Manual) Monocytes # (Manual) APTT POC ABG pH POC ABG pCO2 POC ABG pO2 Sodium Potassium Chloride Carbon Dioxide BUN Creatinine Glucose POC Glucose Lactic Acid 8.50 H* 4.10 H* Calcium Phosphorus 4.90 H Total Bilirubin AST ALT Total Creatine Kinase CK-MB (CK-2) Troponin T Total Protein Albumin HDL Cholesterol Salicylates Acetaminophen 10/11/18 10/11/18 10/11/18 04:14 04:14 04:14 WBC Hgb Hct MCV RDW Plt Count [place] % (Auto) [place] # Seg Neutrophils % Seg Neuts % (Manual) Lymphocytes % (Manual) Monocytes % (Manual) Seg Neutrophils # Seg Neutrophils # Man Lymphocytes # (Manual) Monocytes # (Manual) APTT POC ABG pH POC ABG pCO2 POC ABG pO2 Sodium Potassium 5.6 H Chloride Carbon Dioxide 19 L BUN Creatinine 1.6 H Glucose 329 H POC Glucose 328 H Lactic Acid Calcium 7.3 L Phosphorus Total Bilirubin AST ALT Total Creatine Kinase CK-MB (CK-2) Troponin T 1.130 H* D Total Protein Albumin HDL Cholesterol Salicylates Acetaminophen 10/11/18 10/11/18 10/11/18 05:10 05:32 05:58 WBC Hgb Hct MCV RDW Plt Count [place] % (Auto) [place] # Seg Neutrophils % Seg Neuts % (Manual) Lymphocytes % (Manual) Monocytes % (Manual) Seg Neutrophils # Seg Neutrophils # Man Lymphocytes # (Manual) Monocytes # (Manual) APTT POC ABG pH 7.259 L POC ABG pCO2 45.6 H POC ABG pO2 Sodium Potassium Chloride 108.6 H Carbon Dioxide 20 L BUN Creatinine 1.8 H Glucose 269 H POC Glucose 273 H Lactic Acid Calcium 7.0 L Phosphorus Total Bilirubin AST ALT Total Creatine Kinase CK-MB (CK-2) Troponin T Total Protein Albumin HDL Cholesterol Salicylates Acetaminophen 10/11/18 10/11/18 10/11/18 05:58 06:39 07:00 WBC Hgb Hct MCV RDW Plt Count [place] % (Auto) [place] # Seg Neutrophils % Seg Neuts % (Manual) Lymphocytes % (Manual) Monocytes % (Manual) Seg Neutrophils # Seg Neutrophils # Man Lymphocytes # (Manual) Monocytes # (Manual) APTT POC ABG pH POC ABG pCO2 POC ABG pO2 Sodium Potassium Chloride Carbon Dioxide BUN Creatinine Glucose POC Glucose 247 H Lactic Acid 3.20 H* 3.30 H* Calcium Phosphorus Total Bilirubin AST ALT Total Creatine Kinase CK-MB (CK-2) Troponin T Total Protein Albumin HDL Cholesterol Salicylates Acetaminophen 10/11/18 10/11/18 10/11/18 07:00 07:30 07:36 WBC Hgb Hct MCV RDW Plt Count [place] % (Auto) [place] # Seg Neutrophils % Seg Neuts % (Manual) Lymphocytes % (Manual) Monocytes % (Manual) Seg Neutrophils # Seg Neutrophils # Man Lymphocytes # (Manual) Monocytes # (Manual) APTT POC ABG pH POC ABG pCO2 POC ABG pO2 Sodium 146 H Potassium Chloride 112.1 H Carbon Dioxide 21 L BUN Creatinine 1.6 H Glucose 218 H POC Glucose Lactic Acid 3.20 H* Calcium 7.0 L Phosphorus Total Bilirubin AST ALT Total Creatine Kinase CK-MB (CK-2) Troponin T 1.020 H* Total Protein Albumin HDL Cholesterol Salicylates Acetaminophen 10/11/18 10/11/18 10/11/18 07:43 08:29 08:29 WBC Hgb 16.2 H Hct 49.9 H D MCV RDW Plt Count [place] % (Auto) [place] # Seg Neutrophils % Seg Neuts % (Manual) Lymphocytes % (Manual) Monocytes % (Manual) Seg Neutrophils # Seg Neutrophils # Man Lymphocytes # (Manual) Monocytes # (Manual) APTT POC ABG pH POC ABG pCO2 POC ABG pO2 Sodium Potassium Chloride Carbon Dioxide BUN Creatinine Glucose POC Glucose 174 H Lactic Acid 3.90 H* Calcium Phosphorus Total Bilirubin AST ALT Total Creatine Kinase CK-MB (CK-2) Troponin T Total Protein Albumin HDL Cholesterol Salicylates Acetaminophen 10/11/18 10/11/18 10/11/18 08:29 08:42 11:05 WBC Hgb Hct MCV RDW Plt Count [place] % (Auto) [place] # Seg Neutrophils % Seg Neuts % (Manual) Lymphocytes % (Manual) Monocytes % (Manual) Seg Neutrophils # Seg Neutrophils # Man Lymphocytes # (Manual) Monocytes # (Manual) APTT 24.1 L POC ABG pH POC ABG pCO2 POC ABG pO2 Sodium 147 H Potassium Chloride 113.3 H Carbon Dioxide 21 L BUN Creatinine 1.7 H Glucose 119 H POC Glucose 164 H Lactic Acid Calcium 7.7 L Phosphorus Total Bilirubin AST ALT Total Creatine Kinase CK-MB (CK-2) Troponin T Total Protein Albumin HDL Cholesterol Salicylates Acetaminophen 10/11/18 10/11/18 10/11/18 11:05 11:06 12:30 WBC Hgb Hct MCV RDW Plt Count [place] % (Auto) [place] # Seg Neutrophils % Seg Neuts % (Manual) Lymphocytes % (Manual) Monocytes % (Manual) Seg Neutrophils # Seg Neutrophils # Man Lymphocytes # (Manual) Monocytes # (Manual) APTT POC ABG pH POC ABG pCO2 POC ABG pO2 Sodium 148 H Potassium Chloride 113.4 H Carbon Dioxide 21 L BUN Creatinine 1.6 H Glucose 119 H POC Glucose 116 H Lactic Acid 3.20 H* Calcium 7.5 L Phosphorus Total Bilirubin AST ALT Total Creatine Kinase CK-MB (CK-2) Troponin T Total Protein Albumin HDL Cholesterol Salicylates Acetaminophen 10/11/18 10/11/18 10/11/18 12:30 13:16 13:25 WBC Hgb Hct MCV RDW Plt Count [place] % (Auto) [place] # Seg Neutrophils % Seg Neuts % (Manual) Lymphocytes % (Manual) Monocytes % (Manual) Seg Neutrophils # Seg Neutrophils # Man Lymphocytes # (Manual) Monocytes # (Manual) APTT POC ABG pH 7.247 L POC ABG pCO2 48.4 H POC ABG pO2 Sodium Potassium Chloride Carbon Dioxide BUN Creatinine Glucose POC Glucose 112 H Lactic Acid 2.70 H* Calcium Phosphorus Total Bilirubin AST ALT Total Creatine Kinase CK-MB (CK-2) Troponin T Total Protein Albumin HDL Cholesterol Salicylates Acetaminophen 10/11/18 10/11/18 10/11/18 14:41 15:27 16:13 WBC Hgb Hct MCV RDW Plt Count [place] % (Auto) [place] # Seg Neutrophils % Seg Neuts % (Manual) Lymphocytes % (Manual) Monocytes % (Manual) Seg Neutrophils # Seg Neutrophils # Man Lymphocytes # (Manual) Monocytes # (Manual) APTT POC ABG pH POC ABG pCO2 POC ABG pO2 Sodium Potassium Chloride Carbon Dioxide BUN Creatinine Glucose POC Glucose 127 H 141 H 134 H Lactic Acid Calcium Phosphorus Total Bilirubin AST ALT Total Creatine Kinase CK-MB (CK-2) Troponin T Total Protein Albumin HDL Cholesterol Salicylates Acetaminophen 10/11/18 10/11/18 10/11/18 17:18 18:23 19:38 WBC Hgb Hct MCV RDW Plt Count [place] % (Auto) [place] # Seg Neutrophils % Seg Neuts % (Manual) Lymphocytes % (Manual) Monocytes % (Manual) Seg Neutrophils # Seg Neutrophils # Man Lymphocytes # (Manual) Monocytes # (Manual) APTT POC ABG pH POC ABG pCO2 POC ABG pO2 Sodium 148 H Potassium Chloride 112.7 H Carbon Dioxide BUN 23 H Creatinine Glucose 143 H POC Glucose 132 H 129 H Lactic Acid Calcium 7.9 L Phosphorus Total Bilirubin AST ALT Total Creatine Kinase CK-MB (CK-2) Troponin T Total Protein Albumin HDL Cholesterol Salicylates Acetaminophen 10/11/18 10/11/18 10/11/18 20:19 20:36 21:01 WBC Hgb Hct MCV RDW Plt Count [place] % (Auto) [place] # Seg Neutrophils % Seg Neuts % (Manual) Lymphocytes % (Manual) Monocytes % (Manual) Seg Neutrophils # Seg Neutrophils # Man Lymphocytes # (Manual) Monocytes # (Manual) APTT POC ABG pH 7.281 L POC ABG pCO2 POC ABG pO2 Sodium Potassium Chloride Carbon Dioxide BUN Creatinine Glucose POC Glucose 129 H 151 H Lactic Acid Calcium Phosphorus Total Bilirubin AST ALT Total Creatine Kinase CK-MB (CK-2) Troponin T Total Protein Albumin HDL Cholesterol Salicylates Acetaminophen 10/11/18 10/11/18 10/12/18 22:04 23:15 01:18 WBC Hgb Hct MCV RDW Plt Count [place] % (Auto) [place] # Seg Neutrophils % Seg Neuts % (Manual) Lymphocytes % (Manual) Monocytes % (Manual) Seg Neutrophils # Seg Neutrophils # Man Lymphocytes # (Manual) Monocytes # (Manual) APTT POC ABG pH POC ABG pCO2 POC ABG pO2 Sodium Potassium Chloride Carbon Dioxide BUN Creatinine Glucose POC Glucose 147 H 143 H 158 H Lactic Acid Calcium Phosphorus Total Bilirubin AST ALT Total Creatine Kinase CK-MB (CK-2) Troponin T Total Protein Albumin HDL Cholesterol Salicylates Acetaminophen 10/12/18 10/12/18 10/12/18 02:13 03:18 04:04 WBC Hgb Hct MCV RDW Plt Count [place] % (Auto) [place] # Seg Neutrophils % Seg Neuts % (Manual) Lymphocytes % (Manual) Monocytes % (Manual) Seg Neutrophils # Seg Neutrophils # Man Lymphocytes # (Manual) Monocytes # (Manual) APTT POC ABG pH POC ABG pCO2 POC ABG pO2 Sodium 147 H Potassium Chloride 111.1 H Carbon Dioxide BUN 30 H Creatinine 2.0 H Glucose 154 H POC Glucose 148 H 142 H Lactic Acid Calcium 8.1 L Phosphorus Total Bilirubin AST 269 H ALT 204 H Total Creatine Kinase 3647 H CK-MB (CK-2) 48.3 H Troponin T 2.230 H* D Total Protein 5.8 L Albumin 2.6 L HDL Cholesterol Salicylates Acetaminophen 10/12/18 10/12/18 10/12/18 04:04 04:08 04:19 WBC 24.4 H Hgb Hct MCV RDW Plt Count [place] % (Auto) [place] # Seg Neutrophils % Seg Neuts % (Manual) 32.0 L Lymphocytes % (Manual) Monocytes % (Manual) 8.0 H Seg Neutrophils # Seg Neutrophils # Man 7.8 H Lymphocytes # (Manual) Monocytes # (Manual) 2.0 H APTT POC ABG pH 7.317 L POC ABG pCO2 49.3 H POC ABG pO2 Sodium Potassium Chloride Carbon Dioxide BUN Creatinine Glucose POC Glucose 143 H Lactic Acid Calcium Phosphorus Total Bilirubin AST ALT Total Creatine Kinase CK-MB (CK-2) Troponin T Total Protein Albumin HDL Cholesterol Salicylates Acetaminophen 10/12/18 10/12/18 10/12/18 05:29 06:52 08:09 WBC Hgb Hct MCV RDW Plt Count [place] % (Auto) [place] # Seg Neutrophils % Seg Neuts % (Manual) Lymphocytes % (Manual) Monocytes % (Manual) Seg Neutrophils # Seg Neutrophils # Man Lymphocytes # (Manual) Monocytes # (Manual) APTT POC ABG pH 7.322 L POC ABG pCO2 46.5 H POC ABG pO2 Sodium Potassium Chloride Carbon Dioxide BUN Creatinine Glucose POC Glucose 196 H 226 H Lactic Acid Calcium Phosphorus Total Bilirubin AST ALT Total Creatine Kinase CK-MB (CK-2) Troponin T Total Protein Albumin HDL Cholesterol Salicylates Acetaminophen 10/12/18 10/12/18 10/12/18 08:38 10:03 15:50 WBC Hgb Hct MCV RDW Plt Count [place] % (Auto) [place] # Seg Neutrophils % Seg Neuts % (Manual) Lymphocytes % (Manual) Monocytes % (Manual) Seg Neutrophils # Seg Neutrophils # Man Lymphocytes # (Manual) Monocytes # (Manual) APTT POC ABG pH POC ABG pCO2 POC ABG pO2 Sodium Potassium Chloride Carbon Dioxide BUN Creatinine Glucose POC Glucose 138 H 148 H 221 H Lactic Acid Calcium Phosphorus Total Bilirubin AST ALT Total Creatine Kinase CK-MB (CK-2) Troponin T Total Protein Albumin HDL Cholesterol Salicylates Acetaminophen 10/12/18 10/12/18 10/12/18 18:39 20:56 21:34 WBC Hgb Hct MCV RDW Plt Count [place] % (Auto) [place] # Seg Neutrophils % Seg Neuts % (Manual) Lymphocytes % (Manual) Monocytes % (Manual) Seg Neutrophils # Seg Neutrophils # Man Lymphocytes # (Manual) Monocytes # (Manual) APTT POC ABG pH 7.336 L POC ABG pCO2 46.0 H POC ABG pO2 Sodium Potassium Chloride Carbon Dioxide BUN Creatinine Glucose POC Glucose 255 H 260 H Lactic Acid Calcium Phosphorus Total Bilirubin AST ALT Total Creatine Kinase CK-MB (CK-2) Troponin T Total Protein Albumin HDL Cholesterol Salicylates Acetaminophen 10/13/18 10/13/18 10/13/18 02:29 05:09 05:40 WBC 17.0 H Hgb Hct MCV RDW Plt Count [place] % (Auto) 9.2 H [place] # 1.6 H Seg Neutrophils % 76.2 H Seg Neuts % (Manual) Lymphocytes % (Manual) Monocytes % (Manual) Seg Neutrophils # 12.9 H Seg Neutrophils # Man Lymphocytes # (Manual) Monocytes # (Manual) APTT POC ABG pH POC ABG pCO2 POC ABG pO2 Sodium Potassium Chloride Carbon Dioxide BUN Creatinine Glucose POC Glucose 216 H 249 H Lactic Acid Calcium Phosphorus Total Bilirubin AST ALT Total Creatine Kinase CK-MB (CK-2) Troponin T Total Protein Albumin HDL Cholesterol Salicylates Acetaminophen 10/13/18 10/13/18 10/13/18 05:40 05:40 09:46 WBC Hgb Hct MCV RDW Plt Count [place] % (Auto) [place] # Seg Neutrophils % Seg Neuts % (Manual) Lymphocytes % (Manual) Monocytes % (Manual) Seg Neutrophils # Seg Neutrophils # Man Lymphocytes # (Manual) Monocytes # (Manual) APTT POC ABG pH POC ABG pCO2 POC ABG pO2 Sodium 146 H Potassium Chloride 109.8 H Carbon Dioxide BUN 35 H Creatinine Glucose 245 H POC Glucose 235 H Lactic Acid Calcium 7.9 L Phosphorus Total Bilirubin AST ALT Total Creatine Kinase CK-MB (CK-2) Troponin T 0.952 H* D Total Protein Albumin HDL Cholesterol Salicylates Acetaminophen 10/13/18 10/13/18 10/13/18 13:12 13:58 16:15 WBC Hgb Hct MCV RDW Plt Count [place] % (Auto) [place] # Seg Neutrophils % Seg Neuts % (Manual) Lymphocytes % (Manual) Monocytes % (Manual) Seg Neutrophils # Seg Neutrophils # Man Lymphocytes # (Manual) Monocytes # (Manual) APTT POC ABG pH POC ABG pCO2 46.2 H 51.2 H POC ABG pO2 52 L Sodium Potassium Chloride Carbon Dioxide BUN Creatinine Glucose POC Glucose Lactic Acid Calcium Phosphorus Total Bilirubin AST ALT Total Creatine Kinase CK-MB (CK-2) Troponin T 0.816 H* Total Protein Albumin HDL Cholesterol Salicylates Acetaminophen 10/13/18 10/13/18 10/14/18 17:30 21:25 01:49 WBC Hgb Hct MCV RDW Plt Count [place] % (Auto) [place] # Seg Neutrophils % Seg Neuts % (Manual) Lymphocytes % (Manual) Monocytes % (Manual) Seg Neutrophils # Seg Neutrophils # Man Lymphocytes # (Manual) Monocytes # (Manual) APTT POC ABG pH POC ABG pCO2 POC ABG pO2 Sodium Potassium Chloride Carbon Dioxide BUN Creatinine Glucose POC Glucose 139 H 205 H 166 H Lactic Acid Calcium Phosphorus Total Bilirubin AST ALT Total Creatine Kinase CK-MB (CK-2) Troponin T Total Protein Albumin HDL Cholesterol Salicylates Acetaminophen 10/14/18 10/14/18 10/14/18 04:52 05:32 09:45 WBC Hgb 11.4 L Hct 34.5 L MCV RDW Plt Count 139 L [place] % (Auto) [place] # Seg Neutrophils % Seg Neuts % (Manual) Lymphocytes % (Manual) Monocytes % (Manual) Seg Neutrophils # Seg Neutrophils # Man Lymphocytes # (Manual) Monocytes # (Manual) APTT POC ABG pH POC ABG pCO2 56.0 H POC ABG pO2 Sodium Potassium Chloride Carbon Dioxide BUN Creatinine Glucose POC Glucose 164 H Lactic Acid Calcium Phosphorus Total Bilirubin AST ALT Total Creatine Kinase CK-MB (CK-2) Troponin T Total Protein Albumin HDL Cholesterol Salicylates Acetaminophen 10/14/18 10/14/18 10/14/18 09:45 10:54 12:20 WBC Hgb Hct MCV RDW Plt Count [place] % (Auto) [place] # Seg Neutrophils % Seg Neuts % (Manual) Lymphocytes % (Manual) Monocytes % (Manual) Seg Neutrophils # Seg Neutrophils # Man Lymphocytes # (Manual) Monocytes # (Manual) APTT POC ABG pH POC ABG pCO2 POC ABG pO2 Sodium 148 H Potassium Chloride 107.3 H Carbon Dioxide 34 H D BUN Creatinine 0.7 L D Glucose 191 H POC Glucose 173 H 158 H Lactic Acid Calcium 7.3 L Phosphorus Total Bilirubin AST 110 H ALT 91 H Total Creatine Kinase CK-MB (CK-2) Troponin T Total Protein 4.9 L Albumin 2.0 L HDL Cholesterol Salicylates Acetaminophen 10/14/18 10/14/18 10/15/18 18:30 21:54 02:12 WBC Hgb Hct MCV RDW Plt Count [place] % (Auto) [place] # Seg Neutrophils % Seg Neuts % (Manual) Lymphocytes % (Manual) Monocytes % (Manual) Seg Neutrophils # Seg Neutrophils # Man Lymphocytes # (Manual) Monocytes # (Manual) APTT POC ABG pH POC ABG pCO2 POC ABG pO2 Sodium Potassium Chloride Carbon Dioxide BUN Creatinine Glucose POC Glucose 108 H 110 H 164 H Lactic Acid Calcium Phosphorus Total Bilirubin AST ALT Total Creatine Kinase CK-MB (CK-2) Troponin T Total Protein Albumin HDL Cholesterol Salicylates Acetaminophen 10/15/18 10/15/18 10/15/18 04:19 04:55 05:43 WBC Hgb Hct MCV RDW Plt Count [place] % (Auto) [place] # Seg Neutrophils % Seg Neuts % (Manual) Lymphocytes % (Manual) Monocytes % (Manual) Seg Neutrophils # Seg Neutrophils # Man Lymphocytes # (Manual) Monocytes # (Manual) APTT POC ABG pH 7.491 H POC ABG pCO2 45.1 H 47.3 H POC ABG pO2 78 L Sodium Potassium Chloride Carbon Dioxide BUN Creatinine Glucose POC Glucose 250 H Lactic Acid Calcium Phosphorus Total Bilirubin AST ALT Total Creatine Kinase CK-MB (CK-2) Troponin T Total Protein Albumin HDL Cholesterol Salicylates Acetaminophen 10/15/18 10/15/18 10/15/18 06:20 12:00 12:00 WBC Hgb 11.7 L 11.5 L Hct 34.7 L 34.0 L MCV RDW Plt Count [place] % (Auto) [place] # Seg Neutrophils % Seg Neuts % (Manual) Lymphocytes % (Manual) Monocytes % (Manual) Seg Neutrophils # Seg Neutrophils # Man Lymphocytes # (Manual) Monocytes # (Manual) APTT POC ABG pH POC ABG pCO2 POC ABG pO2 Sodium 147 H Potassium Chloride 108.5 H Carbon Dioxide BUN Creatinine 0.7 L Glucose 209 H POC Glucose Lactic Acid Calcium 7.3 L Phosphorus Total Bilirubin AST ALT Total Creatine Kinase CK-MB (CK-2) Troponin T Total Protein Albumin HDL Cholesterol Salicylates Acetaminophen 10/15/18 10/15/18 10/15/18 12:11 15:48 18:34 WBC Hgb Hct MCV RDW Plt Count [place] % (Auto) [place] # Seg Neutrophils % Seg Neuts % (Manual) Lymphocytes % (Manual) Monocytes % (Manual) Seg Neutrophils # Seg Neutrophils # Man Lymphocytes # (Manual) Monocytes # (Manual) APTT POC ABG pH POC ABG pCO2 POC ABG pO2 Sodium Potassium Chloride Carbon Dioxide BUN Creatinine Glucose POC Glucose 197 H 220 H 249 H Lactic Acid Calcium Phosphorus Total Bilirubin AST ALT Total Creatine Kinase CK-MB (CK-2) Troponin T Total Protein Albumin HDL Cholesterol Salicylates Acetaminophen 10/15/18 10/16/18 10/16/18 21:29 02:16 03:50 WBC Hgb Hct MCV RDW Plt Count [place] % (Auto) [place] # Seg Neutrophils % Seg Neuts % (Manual) Lymphocytes % (Manual) Monocytes % (Manual) Seg Neutrophils # Seg Neutrophils # Man Lymphocytes # (Manual) Monocytes # (Manual) APTT POC ABG pH POC ABG pCO2 55.8 H POC ABG pO2 Sodium Potassium Chloride Carbon Dioxide BUN Creatinine Glucose POC Glucose 209 H 110 H Lactic Acid Calcium Phosphorus Total Bilirubin AST ALT Total Creatine Kinase CK-MB (CK-2) Troponin T Total Protein Albumin HDL Cholesterol Salicylates Acetaminophen 10/16/18 10/16/18 10/16/18 05:57 10:51 12:51 WBC Hgb Hct MCV RDW Plt Count [place] % (Auto) [place] # Seg Neutrophils % Seg Neuts % (Manual) Lymphocytes % (Manual) Monocytes % (Manual) Seg Neutrophils # Seg Neutrophils # Man Lymphocytes # (Manual) Monocytes # (Manual) APTT POC ABG pH POC ABG pCO2 48.9 H POC ABG pO2 Sodium Potassium Chloride Carbon Dioxide BUN Creatinine Glucose POC Glucose 209 H 198 H Lactic Acid Calcium Phosphorus Total Bilirubin AST ALT Total Creatine Kinase CK-MB (CK-2) Troponin T Total Protein Albumin HDL Cholesterol Salicylates Acetaminophen Allied health notes reviewed: nursing
--- NOTE | 2018-10-16 15:36 | Progress Note ---
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 there fore follow up is warrented 7-10 days recpmmend continue same management plan Objective - Vital Sign Vital Signs - 12hr 10/16/18 10/16/18 10/16/18 03:45 03:57 04:00 Temperature 99.3 F Pulse Rate 86 87 Pulse Rate [ Anterior Bilateral Throughout] Pulse Rate [ From Monitor] Respiratory 14 17 14 Rate Respiratory Rate [Anterior Bilateral Throughout] Respiratory Rate [Right Arm ] Blood Pressure 102/53 102/53 106/56 O2 Sat by Pulse 97 97 Oximetry 10/16/18 10/16/18 10/16/18 04:15 04:30 04:45 Temperature Pulse Rate 89 90 93 H Pulse Rate [ Anterior Bilateral Throughout] Pulse Rate [ From Monitor] Respiratory 14 15 12 Rate Respiratory Rate [Anterior Bilateral Throughout] Respiratory Rate [Right Arm ] Blood Pressure 106/56 107/58 108/55 O2 Sat by Pulse 94 Oximetry 10/16/18 10/16/18 10/16/18 05:00 05:15 05:30 Temperature Pulse Rate 92 H 94 H 99 H Pulse Rate [ Anterior Bilateral Throughout] Pulse Rate [ From Monitor] Respiratory 15 13 14 Rate Respiratory Rate [Anterior Bilateral Throughout] Respiratory Rate [Right Arm ] Blood Pressure 105/56 109/59 106/61 O2 Sat by Pulse 94 Oximetry 10/16/18 10/16/18 10/16/18 05:45 06:00 06:15 Temperature Pulse Rate 97 H 91 H 87 Pulse Rate [ Anterior Bilateral Throughout] Pulse Rate [ From Monitor] Respiratory 14 13 13 Rate Respiratory Rate [Anterior Bilateral Throughout] Respiratory Rate [Right Arm ] Blood Pressure 104/50 104/56 103/56 O2 Sat by Pulse 92 92 92 Oximetry 10/16/18 10/16/18 10/16/18 06:31 06:45 07:00 Temperature Pulse Rate 96 H 95 H 95 H Pulse Rate [ Anterior Bilateral Throughout] Pulse Rate [ From Monitor] Respiratory 15 22 12 Rate Respiratory Rate [Anterior Bilateral Throughout] Respiratory Rate [Right Arm ] Blood Pressure 129/66 110/68 120/65 O2 Sat by Pulse 97 95 97 Oximetry 10/16/18 10/16/18 10/16/18 07:15 07:31 07:45 Temperature Pulse Rate 104 H 113 H 113 H Pulse Rate [ Anterior Bilateral Throughout] Pulse Rate [ From Monitor] Respiratory 20 24 22 Rate Respiratory Rate [Anterior Bilateral Throughout] Respiratory Rate [Right Arm ] Blood Pressure 125/72 137/84 137/84 O2 Sat by Pulse 97 96 96 Oximetry 10/16/18 10/16/18 10/16/18 08:00 08:01 08:15 Temperature 99.4 F Pulse Rate 98 H 103 H Pulse Rate [ Anterior Bilateral Throughout] Pulse Rate [ 109 H From Monitor] Respiratory 13 13 15 Rate Respiratory Rate [Anterior Bilateral Throughout] Respiratory Rate [Right Arm ] Blood Pressure 107/61 124/67 O2 Sat by Pulse 94 95 96 Oximetry 10/16/18 10/16/18 10/16/18 08:30 08:45 09:00 Temperature Pulse Rate 100 H 102 H 94 H Pulse Rate [ 106 H 106 H Anterior Bilateral Throughout] Pulse Rate [ From Monitor] Respiratory 14 18 14 Rate Respiratory 13 17 Rate [Anterior Bilateral Throughout] Respiratory Rate [Right Arm ] Blood Pressure 124/67 116/47 102/58 O2 Sat by Pulse 93 92 91 Oximetry 10/16/18 10/16/18 10/16/18 09:07 09:15 09:30 Temperature Pulse Rate 112 H 105 H 102 H Pulse Rate [ Anterior Bilateral Throughout] Pulse Rate [ From Monitor] Respiratory 14 17 14 Rate Respiratory Rate [Anterior Bilateral Throughout] Respiratory Rate [Right Arm ] Blood Pressure 102/58 92/62 99/60 O2 Sat by Pulse 97 94 93 Oximetry 10/16/18 10/16/18 10/16/18 09:45 10:00 10:15 Temperature Pulse Rate 100 H 104 H 103 H Pulse Rate [ Anterior Bilateral Throughout] Pulse Rate [ From Monitor] Respiratory 18 17 16 Rate Respiratory Rate [Anterior Bilateral Throughout] Respiratory 22 Rate [Right Arm ] Blood Pressure 110/59 112/62 112/62 O2 Sat by Pulse 93 92 92 Oximetry 10/16/18 10/16/18 10/16/18 10:30 10:45 11:00 Temperature Pulse Rate 107 H 104 H 109 H Pulse Rate [ Anterior Bilateral Throughout] Pulse Rate [ From Monitor] Respiratory 19 22 22 Rate Respiratory Rate [Anterior Bilateral Throughout] Respiratory Rate [Right Arm ] Blood Pressure 114/60 123/69 127/61 O2 Sat by Pulse 92 94 92 Oximetry 10/16/18 10/16/18 10/16/18 11:15 11:31 11:43 Temperature Pulse Rate 105 H 107 H Pulse Rate [ Anterior Bilateral Throughout] Pulse Rate [ From Monitor] Respiratory 22 24 20 Rate Respiratory Rate [Anterior Bilateral Throughout] Respiratory Rate [Right Arm ] Blood Pressure 113/62 119/57 O2 Sat by Pulse 93 93 94 Oximetry 10/16/18 10/16/18 10/16/18 11:45 11:54 12:00 Temperature 100.1 F H Pulse Rate 111 H 114 H 107 H Pulse Rate [ Anterior Bilateral Throughout] Pulse Rate [ From Monitor] Respiratory 23 24 21 Rate Respiratory Rate [Anterior Bilateral Throughout] Respiratory Rate [Right Arm ] Blood Pressure 123/50 123/50 126/55 O2 Sat by Pulse 94 120 H 95 Oximetry 10/16/18 10/16/18 10/16/18 12:15 12:30 12:45 Temperature Pulse Rate 100 H 103 H 106 H Pulse Rate [ Anterior Bilateral Throughout] Pulse Rate [ From Monitor] Respiratory 17 25 H 25 H Rate Respiratory Rate [Anterior Bilateral Throughout] Respiratory Rate [Right Arm ] Blood Pressure 128/62 125/67 118/73 O2 Sat by Pulse 95 95 96 Oximetry 10/16/18 10/16/18 10/16/18 13:00 13:15 13:18 Temperature Pulse Rate 102 H 113 H 113 H Pulse Rate [ Anterior Bilateral Throughout] Pulse Rate [ From Monitor] Respiratory 22 25 H Rate Respiratory Rate [Anterior Bilateral Throughout] Respiratory Rate [Right Arm ] Blood Pressure 124/68 124/72 124/72 O2 Sat by Pulse 97 96 Oximetry 10/16/18 10/16/18 10/16/18 13:30 14:14 14:17 Temperature Pulse Rate 89 Pulse Rate [ 88 Anterior Bilateral Throughout] Pulse Rate [ From Monitor] Respiratory 24 Rate Respiratory 20 Rate [Anterior Bilateral Throughout] Respiratory Rate [Right Arm ] Blood Pressure 118/63 O2 Sat by Pulse 96 95 Oximetry 10/16/18 14:31 Temperature Pulse Rate Pulse Rate [ 95 H Anterior Bilateral Throughout] Pulse Rate [ From Monitor] Respiratory Rate Respiratory 20 Rate [Anterior Bilateral Throughout] Respiratory Rate [Right Arm ] Blood Pressure O2 Sat by Pulse Oximetry - Laboratory Findings CBC and BMP: 10/15/18 12:00 10/15/18 12:00 Abnormal Lab Findings: Abnormal Labs 10/11/18 10/11/18 10/11/18 00:16 00:16 00:16 WBC 20.1 H Hgb Hct MCV 98 H RDW 15.4 H Plt Count [place] % (Auto) [place] # Seg Neutrophils % Seg Neuts % (Manual) Lymphocytes % (Manual) 5.0 L Monocytes % (Manual) 25.0 H Seg Neutrophils # Seg Neutrophils # Man 9.2 H Lymphocytes # (Manual) 1.0 L Monocytes # (Manual) 5.0 H APTT POC ABG pH POC ABG pCO2 POC ABG pO2 Sodium Potassium 5.8 H Chloride Carbon Dioxide 17 L BUN Creatinine 2.2 H Glucose 348 H POC Glucose Lactic Acid 13.70 H* Calcium 7.7 L Phosphorus Total Bilirubin 1.50 H AST 179 H ALT 110 H Total Creatine Kinase 324 H CK-MB (CK-2) Troponin T 0.257 H* Total Protein 5.9 L Albumin 2.9 L HDL Cholesterol 19 L Salicylates Acetaminophen 10/11/18 10/11/18 10/11/18 00:16 00:16 01:21 WBC Hgb Hct MCV RDW Plt Count [place] % (Auto) [place] # Seg Neutrophils % Seg Neuts % (Manual) Lymphocytes % (Manual) Monocytes % (Manual) Seg Neutrophils # Seg Neutrophils # Man Lymphocytes # (Manual) Monocytes # (Manual) APTT POC ABG pH 7.110 L POC ABG pCO2 50.3 H POC ABG pO2 65 L Sodium Potassium Chloride Carbon Dioxide BUN Creatinine Glucose POC Glucose Lactic Acid Calcium Phosphorus Total Bilirubin AST ALT Total Creatine Kinase CK-MB (CK-2) Troponin T Total Protein Albumin HDL Cholesterol Salicylates < 0.3 L Acetaminophen < 5.0 L 10/11/18 10/11/18 10/11/18 01:22 03:27 04:14 WBC Hgb Hct MCV RDW Plt Count [place] % (Auto) [place] # Seg Neutrophils % Seg Neuts % (Manual) Lymphocytes % (Manual) Monocytes % (Manual) Seg Neutrophils # Seg Neutrophils # Man Lymphocytes # (Manual) Monocytes # (Manual) APTT POC ABG pH POC ABG pCO2 POC ABG pO2 Sodium Potassium Chloride Carbon Dioxide BUN Creatinine Glucose POC Glucose Lactic Acid 8.50 H* 4.10 H* Calcium Phosphorus 4.90 H Total Bilirubin AST ALT Total Creatine Kinase CK-MB (CK-2) Troponin T Total Protein Albumin HDL Cholesterol Salicylates Acetaminophen 10/11/18 10/11/18 10/11/18 04:14 04:14 04:14 WBC Hgb Hct MCV RDW Plt Count [place] % (Auto) [place] # Seg Neutrophils % Seg Neuts % (Manual) Lymphocytes % (Manual) Monocytes % (Manual) Seg Neutrophils # Seg Neutrophils # Man Lymphocytes # (Manual) Monocytes # (Manual) APTT POC ABG pH POC ABG pCO2 POC ABG pO2 Sodium Potassium 5.6 H Chloride Carbon Dioxide 19 L BUN Creatinine 1.6 H Glucose 329 H POC Glucose 328 H Lactic Acid Calcium 7.3 L Phosphorus Total Bilirubin AST ALT Total Creatine Kinase CK-MB (CK-2) Troponin T 1.130 H* D Total Protein Albumin HDL Cholesterol Salicylates Acetaminophen 10/11/18 10/11/18 10/11/18 05:10 05:32 05:58 WBC Hgb Hct MCV RDW Plt Count [place] % (Auto) [place] # Seg Neutrophils % Seg Neuts % (Manual) Lymphocytes % (Manual) Monocytes % (Manual) Seg Neutrophils # Seg Neutrophils # Man Lymphocytes # (Manual) Monocytes # (Manual) APTT POC ABG pH 7.259 L POC ABG pCO2 45.6 H POC ABG pO2 Sodium Potassium Chloride 108.6 H Carbon Dioxide 20 L BUN Creatinine 1.8 H Glucose 269 H POC Glucose 273 H Lactic Acid Calcium 7.0 L Phosphorus Total Bilirubin AST ALT Total Creatine Kinase CK-MB (CK-2) Troponin T Total Protein Albumin HDL Cholesterol Salicylates Acetaminophen 10/11/18 10/11/18 10/11/18 05:58 06:39 07:00 WBC Hgb Hct MCV RDW Plt Count [place] % (Auto) [place] # Seg Neutrophils % Seg Neuts % (Manual) Lymphocytes % (Manual) Monocytes % (Manual) Seg Neutrophils # Seg Neutrophils # Man Lymphocytes # (Manual) Monocytes # (Manual) APTT POC ABG pH POC ABG pCO2 POC ABG pO2 Sodium Potassium Chloride Carbon Dioxide BUN Creatinine Glucose POC Glucose 247 H Lactic Acid 3.20 H* 3.30 H* Calcium Phosphorus Total Bilirubin AST ALT Total Creatine Kinase CK-MB (CK-2) Troponin T Total Protein Albumin HDL Cholesterol Salicylates Acetaminophen 10/11/18 10/11/18 10/11/18 07:00 07:30 07:36 WBC Hgb Hct MCV RDW Plt Count [place] % (Auto) [place] # Seg Neutrophils % Seg Neuts % (Manual) Lymphocytes % (Manual) Monocytes % (Manual) Seg Neutrophils # Seg Neutrophils # Man Lymphocytes # (Manual) Monocytes # (Manual) APTT POC ABG pH POC ABG pCO2 POC ABG pO2 Sodium 146 H Potassium Chloride 112.1 H Carbon Dioxide 21 L BUN Creatinine 1.6 H Glucose 218 H POC Glucose Lactic Acid 3.20 H* Calcium 7.0 L Phosphorus Total Bilirubin AST ALT Total Creatine Kinase CK-MB (CK-2) Troponin T 1.020 H* Total Protein Albumin HDL Cholesterol Salicylates Acetaminophen 10/11/18 10/11/18 10/11/18 07:43 08:29 08:29 WBC Hgb 16.2 H Hct 49.9 H D MCV RDW Plt Count [place] % (Auto) [place] # Seg Neutrophils % Seg Neuts % (Manual) Lymphocytes % (Manual) Monocytes % (Manual) Seg Neutrophils # Seg Neutrophils # Man Lymphocytes # (Manual) Monocytes # (Manual) APTT POC ABG pH POC ABG pCO2 POC ABG pO2 Sodium Potassium Chloride Carbon Dioxide BUN Creatinine Glucose POC Glucose 174 H Lactic Acid 3.90 H* Calcium Phosphorus Total Bilirubin AST ALT Total Creatine Kinase CK-MB (CK-2) Troponin T Total Protein Albumin HDL Cholesterol Salicylates Acetaminophen 10/11/18 10/11/18 10/11/18 08:29 08:42 11:05 WBC Hgb Hct MCV RDW Plt Count [place] % (Auto) [place] # Seg Neutrophils % Seg Neuts % (Manual) Lymphocytes % (Manual) Monocytes % (Manual) Seg Neutrophils # Seg Neutrophils # Man Lymphocytes # (Manual) Monocytes # (Manual) APTT 24.1 L POC ABG pH POC ABG pCO2 POC ABG pO2 Sodium 147 H Potassium Chloride 113.3 H Carbon Dioxide 21 L BUN Creatinine 1.7 H Glucose 119 H POC Glucose 164 H Lactic Acid Calcium 7.7 L Phosphorus Total Bilirubin AST ALT Total Creatine Kinase CK-MB (CK-2) Troponin T Total Protein Albumin HDL Cholesterol Salicylates Acetaminophen 10/11/18 10/11/18 10/11/18 11:05 11:06 12:30 WBC Hgb Hct MCV RDW Plt Count [place] % (Auto) [place] # Seg Neutrophils % Seg Neuts % (Manual) Lymphocytes % (Manual) Monocytes % (Manual) Seg Neutrophils # Seg Neutrophils # Man Lymphocytes # (Manual) Monocytes # (Manual) APTT POC ABG pH POC ABG pCO2 POC ABG pO2 Sodium 148 H Potassium Chloride 113.4 H Carbon Dioxide 21 L BUN Creatinine 1.6 H Glucose 119 H POC Glucose 116 H Lactic Acid 3.20 H* Calcium 7.5 L Phosphorus Total Bilirubin AST ALT Total Creatine Kinase CK-MB (CK-2) Troponin T Total Protein Albumin HDL Cholesterol Salicylates Acetaminophen 10/11/18 10/11/18 10/11/18 12:30 13:16 13:25 WBC Hgb Hct MCV RDW Plt Count [place] % (Auto) [place] # Seg Neutrophils % Seg Neuts % (Manual) Lymphocytes % (Manual) Monocytes % (Manual) Seg Neutrophils # Seg Neutrophils # Man Lymphocytes # (Manual) Monocytes # (Manual) APTT POC ABG pH 7.247 L POC ABG pCO2 48.4 H POC ABG pO2 Sodium Potassium Chloride Carbon Dioxide BUN Creatinine Glucose POC Glucose 112 H Lactic Acid 2.70 H* Calcium Phosphorus Total Bilirubin AST ALT Total Creatine Kinase CK-MB (CK-2) Troponin T Total Protein Albumin HDL Cholesterol Salicylates Acetaminophen 10/11/18 10/11/18 10/11/18 14:41 15:27 16:13 WBC Hgb Hct MCV RDW Plt Count [place] % (Auto) [place] # Seg Neutrophils % Seg Neuts % (Manual) Lymphocytes % (Manual) Monocytes % (Manual) Seg Neutrophils # Seg Neutrophils # Man Lymphocytes # (Manual) Monocytes # (Manual) APTT POC ABG pH POC ABG pCO2 POC ABG pO2 Sodium Potassium Chloride Carbon Dioxide BUN Creatinine Glucose POC Glucose 127 H 141 H 134 H Lactic Acid Calcium Phosphorus Total Bilirubin AST ALT Total Creatine Kinase CK-MB (CK-2) Troponin T Total Protein Albumin HDL Cholesterol Salicylates Acetaminophen 10/11/18 10/11/18 10/11/18 17:18 18:23 19:38 WBC Hgb Hct MCV RDW Plt Count [place] % (Auto) [place] # Seg Neutrophils % Seg Neuts % (Manual) Lymphocytes % (Manual) Monocytes % (Manual) Seg Neutrophils # Seg Neutrophils # Man Lymphocytes # (Manual) Monocytes # (Manual) APTT POC ABG pH POC ABG pCO2 POC ABG pO2 Sodium 148 H Potassium Chloride 112.7 H Carbon Dioxide BUN 23 H Creatinine Glucose 143 H POC Glucose 132 H 129 H Lactic Acid Calcium 7.9 L Phosphorus Total Bilirubin AST ALT Total Creatine Kinase CK-MB (CK-2) Troponin T Total Protein Albumin HDL Cholesterol Salicylates Acetaminophen 10/11/18 10/11/18 10/11/18 20:19 20:36 21:01 WBC Hgb Hct MCV RDW Plt Count [place] % (Auto) [place] # Seg Neutrophils % Seg Neuts % (Manual) Lymphocytes % (Manual) Monocytes % (Manual) Seg Neutrophils # Seg Neutrophils # Man Lymphocytes # (Manual) Monocytes # (Manual) APTT POC ABG pH 7.281 L POC ABG pCO2 POC ABG pO2 Sodium Potassium Chloride Carbon Dioxide BUN Creatinine Glucose POC Glucose 129 H 151 H Lactic Acid Calcium Phosphorus Total Bilirubin AST ALT Total Creatine Kinase CK-MB (CK-2) Troponin T Total Protein Albumin HDL Cholesterol Salicylates Acetaminophen 10/11/18 10/11/18 10/12/18 22:04 23:15 01:18 WBC Hgb Hct MCV RDW Plt Count [place] % (Auto) [place] # Seg Neutrophils % Seg Neuts % (Manual) Lymphocytes % (Manual) Monocytes % (Manual) Seg Neutrophils # Seg Neutrophils # Man Lymphocytes # (Manual) Monocytes # (Manual) APTT POC ABG pH POC ABG pCO2 POC ABG pO2 Sodium Potassium Chloride Carbon Dioxide BUN Creatinine Glucose POC Glucose 147 H 143 H 158 H Lactic Acid Calcium Phosphorus Total Bilirubin AST ALT Total Creatine Kinase CK-MB (CK-2) Troponin T Total Protein Albumin HDL Cholesterol Salicylates Acetaminophen 10/12/18 10/12/18 10/12/18 02:13 03:18 04:04 WBC Hgb Hct MCV RDW Plt Count [place] % (Auto) [place] # Seg Neutrophils % Seg Neuts % (Manual) Lymphocytes % (Manual) Monocytes % (Manual) Seg Neutrophils # Seg Neutrophils # Man Lymphocytes # (Manual) Monocytes # (Manual) APTT POC ABG pH POC ABG pCO2 POC ABG pO2 Sodium 147 H Potassium Chloride 111.1 H Carbon Dioxide BUN 30 H Creatinine 2.0 H Glucose 154 H POC Glucose 148 H 142 H Lactic Acid Calcium 8.1 L Phosphorus Total Bilirubin AST 269 H ALT 204 H Total Creatine Kinase 3647 H CK-MB (CK-2) 48.3 H Troponin T 2.230 H* D Total Protein 5.8 L Albumin 2.6 L HDL Cholesterol Salicylates Acetaminophen 10/12/18 10/12/18 10/12/18 04:04 04:08 04:19 WBC 24.4 H Hgb Hct MCV RDW Plt Count [place] % (Auto) [place] # Seg Neutrophils % Seg Neuts % (Manual) 32.0 L Lymphocytes % (Manual) Monocytes % (Manual) 8.0 H Seg Neutrophils # Seg Neutrophils # Man 7.8 H Lymphocytes # (Manual) Monocytes # (Manual) 2.0 H APTT POC ABG pH 7.317 L POC ABG pCO2 49.3 H POC ABG pO2 Sodium Potassium Chloride Carbon Dioxide BUN Creatinine Glucose POC Glucose 143 H Lactic Acid Calcium Phosphorus Total Bilirubin AST ALT Total Creatine Kinase CK-MB (CK-2) Troponin T Total Protein Albumin HDL Cholesterol Salicylates Acetaminophen 10/12/18 10/12/18 10/12/18 05:29 06:52 08:09 WBC Hgb Hct MCV RDW Plt Count [place] % (Auto) [place] # Seg Neutrophils % Seg Neuts % (Manual) Lymphocytes % (Manual) Monocytes % (Manual) Seg Neutrophils # Seg Neutrophils # Man Lymphocytes # (Manual) Monocytes # (Manual) APTT POC ABG pH 7.322 L POC ABG pCO2 46.5 H POC ABG pO2 Sodium Potassium Chloride Carbon Dioxide BUN Creatinine Glucose POC Glucose 196 H 226 H Lactic Acid Calcium Phosphorus Total Bilirubin AST ALT Total Creatine Kinase CK-MB (CK-2) Troponin T Total Protein Albumin HDL Cholesterol Salicylates Acetaminophen 10/12/18 10/12/18 10/12/18 08:38 10:03 15:50 WBC Hgb Hct MCV RDW Plt Count [place] % (Auto) [place] # Seg Neutrophils % Seg Neuts % (Manual) Lymphocytes % (Manual) Monocytes % (Manual) Seg Neutrophils # Seg Neutrophils # Man Lymphocytes # (Manual) Monocytes # (Manual) APTT POC ABG pH POC ABG pCO2 POC ABG pO2 Sodium Potassium Chloride Carbon Dioxide BUN Creatinine Glucose POC Glucose 138 H 148 H 221 H Lactic Acid Calcium Phosphorus Total Bilirubin AST ALT Total Creatine Kinase CK-MB (CK-2) Troponin T Total Protein Albumin HDL Cholesterol Salicylates Acetaminophen 10/12/18 10/12/18 10/12/18 18:39 20:56 21:34 WBC Hgb Hct MCV RDW Plt Count [place] % (Auto) [place] # Seg Neutrophils % Seg Neuts % (Manual) Lymphocytes % (Manual) Monocytes % (Manual) Seg Neutrophils # Seg Neutrophils # Man Lymphocytes # (Manual) Monocytes # (Manual) APTT POC ABG pH 7.336 L POC ABG pCO2 46.0 H POC ABG pO2 Sodium Potassium Chloride Carbon Dioxide BUN Creatinine Glucose POC Glucose 255 H 260 H Lactic Acid Calcium Phosphorus Total Bilirubin AST ALT Total Creatine Kinase CK-MB (CK-2) Troponin T Total Protein Albumin HDL Cholesterol Salicylates Acetaminophen 10/13/18 10/13/18 10/13/18 02:29 05:09 05:40 WBC 17.0 H Hgb Hct MCV RDW Plt Count [place] % (Auto) 9.2 H [place] # 1.6 H Seg Neutrophils % 76.2 H Seg Neuts % (Manual) Lymphocytes % (Manual) Monocytes % (Manual) Seg Neutrophils # 12.9 H Seg Neutrophils # Man Lymphocytes # (Manual) Monocytes # (Manual) APTT POC ABG pH POC ABG pCO2 POC ABG pO2 Sodium Potassium Chloride Carbon Dioxide BUN Creatinine Glucose POC Glucose 216 H 249 H Lactic Acid Calcium Phosphorus Total Bilirubin AST ALT Total Creatine Kinase CK-MB (CK-2) Troponin T Total Protein Albumin HDL Cholesterol Salicylates Acetaminophen 10/13/18 10/13/18 10/13/18 05:40 05:40 09:46 WBC Hgb Hct MCV RDW Plt Count [place] % (Auto) [place] # Seg Neutrophils % Seg Neuts % (Manual) Lymphocytes % (Manual) Monocytes % (Manual) Seg Neutrophils # Seg Neutrophils # Man Lymphocytes # (Manual) Monocytes # (Manual) APTT POC ABG pH POC ABG pCO2 POC ABG pO2 Sodium 146 H Potassium Chloride 109.8 H Carbon Dioxide BUN 35 H Creatinine Glucose 245 H POC Glucose 235 H Lactic Acid Calcium 7.9 L Phosphorus Total Bilirubin AST ALT Total Creatine Kinase CK-MB (CK-2) Troponin T 0.952 H* D Total Protein Albumin HDL Cholesterol Salicylates Acetaminophen 10/13/18 10/13/18 10/13/18 13:12 13:58 16:15 WBC Hgb Hct MCV RDW Plt Count [place] % (Auto) [place] # Seg Neutrophils % Seg Neuts % (Manual) Lymphocytes % (Manual) Monocytes % (Manual) Seg Neutrophils # Seg Neutrophils # Man Lymphocytes # (Manual) Monocytes # (Manual) APTT POC ABG pH POC ABG pCO2 46.2 H 51.2 H POC ABG pO2 52 L Sodium Potassium Chloride Carbon Dioxide BUN Creatinine Glucose POC Glucose Lactic Acid Calcium Phosphorus Total Bilirubin AST ALT Total Creatine Kinase CK-MB (CK-2) Troponin T 0.816 H* Total Protein Albumin HDL Cholesterol Salicylates Acetaminophen 10/13/18 10/13/18 10/14/18 17:30 21:25 01:49 WBC Hgb Hct MCV RDW Plt Count [place] % (Auto) [place] # Seg Neutrophils % Seg Neuts % (Manual) Lymphocytes % (Manual) Monocytes % (Manual) Seg Neutrophils # Seg Neutrophils # Man Lymphocytes # (Manual) Monocytes # (Manual) APTT POC ABG pH POC ABG pCO2 POC ABG pO2 Sodium Potassium Chloride Carbon Dioxide BUN Creatinine Glucose POC Glucose 139 H 205 H 166 H Lactic Acid Calcium Phosphorus Total Bilirubin AST ALT Total Creatine Kinase CK-MB (CK-2) Troponin T Total Protein Albumin HDL Cholesterol Salicylates Acetaminophen 10/14/18 10/14/18 10/14/18 04:52 05:32 09:45 WBC Hgb 11.4 L Hct 34.5 L MCV RDW Plt Count 139 L [place] % (Auto) [place] # Seg Neutrophils % Seg Neuts % (Manual) Lymphocytes % (Manual) Monocytes % (Manual) Seg Neutrophils # Seg Neutrophils # Man Lymphocytes # (Manual) Monocytes # (Manual) APTT POC ABG pH POC ABG pCO2 56.0 H POC ABG pO2 Sodium Potassium Chloride Carbon Dioxide BUN Creatinine Glucose POC Glucose 164 H Lactic Acid Calcium Phosphorus Total Bilirubin AST ALT Total Creatine Kinase CK-MB (CK-2) Troponin T Total Protein Albumin HDL Cholesterol Salicylates Acetaminophen 10/14/18 10/14/18 10/14/18 09:45 10:54 12:20 WBC Hgb Hct MCV RDW Plt Count [place] % (Auto) [place] # Seg Neutrophils % Seg Neuts % (Manual) Lymphocytes % (Manual) Monocytes % (Manual) Seg Neutrophils # Seg Neutrophils # Man Lymphocytes # (Manual) Monocytes # (Manual) APTT POC ABG pH POC ABG pCO2 POC ABG pO2 Sodium 148 H Potassium Chloride 107.3 H Carbon Dioxide 34 H D BUN Creatinine 0.7 L D Glucose 191 H POC Glucose 173 H 158 H Lactic Acid Calcium 7.3 L Phosphorus Total Bilirubin AST 110 H ALT 91 H Total Creatine Kinase CK-MB (CK-2) Troponin T Total Protein 4.9 L Albumin 2.0 L HDL Cholesterol Salicylates Acetaminophen 10/14/18 10/14/18 10/15/18 18:30 21:54 02:12 WBC Hgb Hct MCV RDW Plt Count [place] % (Auto) [place] # Seg Neutrophils % Seg Neuts % (Manual) Lymphocytes % (Manual) Monocytes % (Manual) Seg Neutrophils # Seg Neutrophils # Man Lymphocytes # (Manual) Monocytes # (Manual) APTT POC ABG pH POC ABG pCO2 POC ABG pO2 Sodium Potassium Chloride Carbon Dioxide BUN Creatinine Glucose POC Glucose 108 H 110 H 164 H Lactic Acid Calcium Phosphorus Total Bilirubin AST ALT Total Creatine Kinase CK-MB (CK-2) Troponin T Total Protein Albumin HDL Cholesterol Salicylates Acetaminophen 10/15/18 10/15/18 10/15/18 04:19 04:55 05:43 WBC Hgb Hct MCV RDW Plt Count [place] % (Auto) [place] # Seg Neutrophils % Seg Neuts % (Manual) Lymphocytes % (Manual) Monocytes % (Manual) Seg Neutrophils # Seg Neutrophils # Man Lymphocytes # (Manual) Monocytes # (Manual) APTT POC ABG pH 7.491 H POC ABG pCO2 45.1 H 47.3 H POC ABG pO2 78 L Sodium Potassium Chloride Carbon Dioxide BUN Creatinine Glucose POC Glucose 250 H Lactic Acid Calcium Phosphorus Total Bilirubin AST ALT Total Creatine Kinase CK-MB (CK-2) Troponin T Total Protein Albumin HDL Cholesterol Salicylates Acetaminophen 10/15/18 10/15/18 10/15/18 06:20 12:00 12:00 WBC Hgb 11.7 L 11.5 L Hct 34.7 L 34.0 L MCV RDW Plt Count [place] % (Auto) [place] # Seg Neutrophils % Seg Neuts % (Manual) Lymphocytes % (Manual) Monocytes % (Manual) Seg Neutrophils # Seg Neutrophils # Man Lymphocytes # (Manual) Monocytes # (Manual) APTT POC ABG pH POC ABG pCO2 POC ABG pO2 Sodium 147 H Potassium Chloride 108.5 H Carbon Dioxide BUN Creatinine 0.7 L Glucose 209 H POC Glucose Lactic Acid Calcium 7.3 L Phosphorus Total Bilirubin AST ALT Total Creatine Kinase CK-MB (CK-2) Troponin T Total Protein Albumin HDL Cholesterol Salicylates Acetaminophen 10/15/18 10/15/18 10/15/18 12:11 15:48 18:34 WBC Hgb Hct MCV RDW Plt Count [place] % (Auto) [place] # Seg Neutrophils % Seg Neuts % (Manual) Lymphocytes % (Manual) Monocytes % (Manual) Seg Neutrophils # Seg Neutrophils # Man Lymphocytes # (Manual) Monocytes # (Manual) APTT POC ABG pH POC ABG pCO2 POC ABG pO2 Sodium Potassium Chloride Carbon Dioxide BUN Creatinine Glucose POC Glucose 197 H 220 H 249 H Lactic Acid Calcium Phosphorus Total Bilirubin AST ALT Total Creatine Kinase CK-MB (CK-2) Troponin T Total Protein Albumin HDL Cholesterol Salicylates Acetaminophen 10/15/18 10/16/18 10/16/18 21:29 02:16 03:50 WBC Hgb Hct MCV RDW Plt Count [place] % (Auto) [place] # Seg Neutrophils % Seg Neuts % (Manual) Lymphocytes % (Manual) Monocytes % (Manual) Seg Neutrophils # Seg Neutrophils # Man Lymphocytes # (Manual) Monocytes # (Manual) APTT POC ABG pH POC ABG pCO2 55.8 H POC ABG pO2 Sodium Potassium Chloride Carbon Dioxide BUN Creatinine Glucose POC Glucose 209 H 110 H Lactic Acid Calcium Phosphorus Total Bilirubin AST ALT Total Creatine Kinase CK-MB (CK-2) Troponin T Total Protein Albumin HDL Cholesterol Salicylates Acetaminophen 10/16/18 10/16/18 10/16/18 05:57 10:51 12:51 WBC Hgb Hct MCV RDW Plt Count [place] % (Auto) [place] # Seg Neutrophils % Seg Neuts % (Manual) Lymphocytes % (Manual) Monocytes % (Manual) Seg Neutrophils # Seg Neutrophils # Man Lymphocytes # (Manual) Monocytes # (Manual) APTT POC ABG pH POC ABG pCO2 48.9 H POC ABG pO2 Sodium Potassium Chloride Carbon Dioxide BUN Creatinine Glucose POC Glucose 209 H 198 H Lactic Acid Calcium Phosphorus Total Bilirubin AST ALT Total Creatine Kinase CK-MB (CK-2) Troponin T Total Protein Albumin HDL Cholesterol Salicylates Acetaminophen 10/16/18 15:01 WBC Hgb Hct MCV RDW Plt Count [place] % (Auto) [place] # Seg Neutrophils % Seg Neuts % (Manual) Lymphocytes % (Manual) Monocytes % (Manual) Seg Neutrophils # Seg Neutrophils # Man Lymphocytes # (Manual) Monocytes # (Manual) APTT POC ABG pH POC ABG pCO2 POC ABG pO2 Sodium Potassium Chloride Carbon Dioxide BUN Creatinine Glucose POC Glucose 196 H Lactic Acid Calcium Phosphorus Total Bilirubin AST ALT Total Creatine Kinase CK-MB (CK-2) Troponin T Total Protein Albumin HDL Cholesterol Salicylates Acetaminophen
[2018-10-16] MEDS: MORPHINE IV PRN (19:55)
[2018-10-17] MEDS: MORPHINE IV PRN ×3 (00:05→13:24)
[2018-10-17] MEDS: LOPRESSOR IV SCH ×3 (00:06→13:16)
[2018-10-17] MEDS: UNASYN/NS 3 GM/100 ML 3 GM/100 ML BAG IV SCH ×3 (00:06→13:15)
[2018-10-17] MEDS: SODIUM CHLORIDE FLUSH SYRINGE 10 ML IV SCH ×3 (00:08→21:58)
[2018-10-17] MEDS ORDERED: ATIVAN IV ONE (01:39)
[2018-10-17] MEDS: DUONEB *Not for PRN Use IH SCH ×4 (03:26→19:57)
--- NOTE | 2018-10-17 03:28 | XRay Report ---
PROCEDURE: XR CHEST 1V AP TECHNIQUE: A portable upright view the chest was obtained. HISTORY: follow up respiratory failure COMPARISONS: 10/16/2018 FINDINGS: The lungs are hyperinflated with chronic interstitial changes. There is stable mild patchy airspace d isease in the left lung base. Pleural fluid is not seen. Since the previous study the patient has bee n extubated along with removal of the NG tube. The tip of the right-sided PICC line is in good positi on in the SVC. The heart size is normal. The bones and soft tissues are unchanged. IMPRESSION: Hyperinflation with stable mild airspace disease in left lung base. Interval extubation and removal of the NG tube since the previous study.. This document is electronically signed by Pancho Kraus MD., Oct 17 2018 03:26:35 AM ET
[2018-10-17] MEDS: HumuLIN R SUB-Q SCH ×4 (03:53→23:30)
[2018-10-17 05:54] LABS: Hematocrit 33.2 % (35.5-45.6); Hemoglobin 11.3 gm/dl (11.8-15.2)
[2018-10-17] MEDS ORDERED: VERSED ONE (09:36)
[2018-10-17] MEDS ORDERED: AMIDATE IV ONE ×2 (09:36→09:39)
[2018-10-17] MEDS ORDERED: DIPRIVAN 10 MG/ML IV ONE (09:36)
--- NOTE | 2018-10-17 10:13 | Progress Note ---
Assessment and Plan Acute hypoxemic respiratory failure, on mechanical ventilator support. Drug overdose. Acute chronic obstructive pulmonary disease exacerbation. Witnessed seizure en route. Acute kidney injury. Leukocytosis. Hypercapnia. Hyperkalemia. Metabolic acidosis. Lactic acidosis. Non-ST elevation myocardial infarction. Elevated serum transaminases. 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 Target glucose of 140-180 mg/dL - Maintenance of sleep -wake cycle - Mobility protocol for pressure ulcer prophylaxis - Influenza and pneumonia vaccination per protocol ..care plan discussed at length with relative and patient at bedside ..discussed in ICU-IDT rounds ... improved and will tranfer to telemetry floor ...... re-evaluate in am & prn ... 38' care time Subjective Date of service: 10/17/18 Principal diagnosis: Ac hypercapnic hypoxemic Resp failure; Drug OD; AE-COPD; NINOSKA; Seizures Interval history: Patient is seen today for: Acute hypoxemic respiratory failure, on mechanical ventilator support; Drug overdose; Acute chronic obstructive pulmonary disease exacerbation; Witnessed seizure en route; Acute kidney injury; Leukocytosis; Hypercapnia. Seen and examined at bedside; 24-hour events reviewed; nursing and respiratory care staff consulted; no adverse overnight events reported to me; doing well post extubation so far; No N/V/F/C; hemiparesis is persistent; no gross bleeding; remains hypoxemic; failed bedside dysphagia screen; s/p QUIQUE today Objective Vital Signs - 12hr 10/16/18 10/16/18 10/16/18 22:15 22:30 22:45 Temperature Pulse Rate 99 H 122 H 150 H Pulse Rate [ Anterior Bilateral Throughout] Pulse Rate [ Bilateral] Pulse Rate [ From Monitor] Respiratory 30 H 25 H 23 Rate Respiratory Rate [Anterior Bilateral Throughout] Respiratory Rate [Bilateral ] Blood Pressure 128/78 133/64 133/64 O2 Sat by Pulse 94 91 91 Oximetry 10/16/18 10/16/18 10/16/18 23:00 23:15 23:21 Temperature Pulse Rate 96 H 92 H 98 H Pulse Rate [ Anterior Bilateral Throughout] Pulse Rate [ Bilateral] Pulse Rate [ From Monitor] Respiratory 31 H 30 H 26 H Rate Respiratory Rate [Anterior Bilateral Throughout] Respiratory Rate [Bilateral ] Blood Pressure 116/60 133/64 133/64 O2 Sat by Pulse 95 97 98 Oximetry 10/16/18 10/16/18 10/17/18 23:30 23:45 00:00 Temperature 98.8 F Pulse Rate 96 H 100 H 95 H Pulse Rate [ Anterior Bilateral Throughout] Pulse Rate [ Bilateral] Pulse Rate [ From Monitor] Respiratory 25 H 26 H 27 H Rate Respiratory Rate [Anterior Bilateral Throughout] Respiratory Rate [Bilateral ] Blood Pressure 121/69 121/69 117/61 O2 Sat by Pulse 95 96 90 Oximetry 10/17/18 10/17/18 10/17/18 00:06 00:15 00:30 Temperature Pulse Rate 94 H 84 84 Pulse Rate [ Anterior Bilateral Throughout] Pulse Rate [ Bilateral] Pulse Rate [ From Monitor] Respiratory 20 29 H Rate Respiratory Rate [Anterior Bilateral Throughout] Respiratory Rate [Bilateral ] Blood Pressure 117/61 121/69 118/70 O2 Sat by Pulse 92 99 Oximetry 10/17/18 10/17/18 10/17/18 00:45 01:00 01:15 Temperature Pulse Rate 92 H 89 89 Pulse Rate [ Anterior Bilateral Throughout] Pulse Rate [ Bilateral] Pulse Rate [ From Monitor] Respiratory 23 25 H 26 H Rate Respiratory Rate [Anterior Bilateral Throughout] Respiratory Rate [Bilateral ] Blood Pressure 118/70 136/72 118/70 O2 Sat by Pulse 95 96 96 Oximetry 10/17/18 10/17/18 10/17/18 01:30 01:45 02:01 Temperature Pulse Rate 91 H 88 90 Pulse Rate [ Anterior Bilateral Throughout] Pulse Rate [ Bilateral] Pulse Rate [ From Monitor] Respiratory 20 23 24 Rate Respiratory Rate [Anterior Bilateral Throughout] Respiratory Rate [Bilateral ] Blood Pressure 134/78 136/72 130/67 O2 Sat by Pulse 95 97 95 Oximetry 10/17/18 10/17/18 10/17/18 02:15 02:30 02:45 Temperature Pulse Rate 87 96 H 91 H Pulse Rate [ Anterior Bilateral Throughout] Pulse Rate [ Bilateral] Pulse Rate [ From Monitor] Respiratory 30 H 25 H 32 H Rate Respiratory Rate [Anterior Bilateral Throughout] Respiratory Rate [Bilateral ] Blood Pressure 134/78 128/72 128/72 O2 Sat by Pulse 97 91 95 Oximetry 10/17/18 10/17/18 10/17/18 03:01 03:15 03:18 Temperature Pulse Rate 104 H 109 H Pulse Rate [ 98 H Anterior Bilateral Throughout] Pulse Rate [ Bilateral] Pulse Rate [ From Monitor] Respiratory 31 H 28 H Rate Respiratory 32 H Rate [Anterior Bilateral Throughout] Respiratory Rate [Bilateral ] Blood Pressure 130/61 130/61 O2 Sat by Pulse 94 93 Oximetry 10/17/18 10/17/18 10/17/18 03:29 03:30 03:45 Temperature Pulse Rate 96 H 101 H Pulse Rate [ 104 H Anterior Bilateral Throughout] Pulse Rate [ Bilateral] Pulse Rate [ From Monitor] Respiratory 31 H 17 Rate Respiratory 28 H Rate [Anterior Bilateral Throughout] Respiratory Rate [Bilateral ] Blood Pressure 135/63 135/63 O2 Sat by Pulse 90 94 Oximetry 10/17/18 10/17/18 10/17/18 04:00 04:15 04:30 Temperature Pulse Rate 100 H 103 H 108 H Pulse Rate [ Anterior Bilateral Throughout] Pulse Rate [ Bilateral] Pulse Rate [ From Monitor] Respiratory 31 H 36 H 34 H Rate Respiratory Rate [Anterior Bilateral Throughout] Respiratory Rate [Bilateral ] Blood Pressure 137/73 137/73 126/63 O2 Sat by Pulse 93 92 92 Oximetry 10/17/18 10/17/18 10/17/18 04:45 05:00 05:15 Temperature Pulse Rate 104 H 100 H 96 H Pulse Rate [ Anterior Bilateral Throughout] Pulse Rate [ Bilateral] Pulse Rate [ From Monitor] Respiratory 37 H 37 H 33 H Rate Respiratory Rate [Anterior Bilateral Throughout] Respiratory Rate [Bilateral ] Blood Pressure 126/63 130/68 130/68 O2 Sat by Pulse 89 89 93 Oximetry 10/17/18 10/17/18 10/17/18 05:29 05:30 05:45 Temperature Pulse Rate 95 H 93 H 95 H Pulse Rate [ Anterior Bilateral Throughout] Pulse Rate [ Bilateral] Pulse Rate [ From Monitor] Respiratory 31 H 29 H Rate Respiratory Rate [Anterior Bilateral Throughout] Respiratory Rate [Bilateral ] Blood Pressure 130/68 123/67 123/67 O2 Sat by Pulse 96 98 Oximetry 05/01/2810/17/18 10/17/18 06:00 06:15 06:30 Temperature Pulse Rate 88 96 H 92 H Pulse Rate [ Anterior Bilateral Throughout] Pulse Rate [ Bilateral] Pulse Rate [ From Monitor] Respiratory 30 H 30 H 26 H Rate Respiratory Rate [Anterior Bilateral Throughout] Respiratory Rate [Bilateral ] Blood Pressure 122/72 122/72 127/74 O2 Sat by Pulse 98 97 96 Oximetry 10/17/18 10/17/18 10/17/18 07:00 07:30 08:00 Temperature Pulse Rate 93 H 92 H 96 H Pulse Rate [ Anterior Bilateral Throughout] Pulse Rate [ Bilateral] Pulse Rate [ 92 H From Monitor] Respiratory 35 H 33 H 29 H Rate Respiratory Rate [Anterior Bilateral Throughout] Respiratory Rate [Bilateral ] Blood Pressure 122/70 122/72 134/68 O2 Sat by Pulse 96 90 91 Oximetry 10/17/18 10/17/18 08:03 08:30 Temperature Pulse Rate 95 H Pulse Rate [ 97 H Anterior Bilateral Throughout] Pulse Rate [ 96 H Bilateral] Pulse Rate [ From Monitor] Respiratory 25 H Rate Respiratory 16 Rate [Anterior Bilateral Throughout] Respiratory 16 Rate [Bilateral ] Blood Pressure 118/71 O2 Sat by Pulse 92 Oximetry Constitutional: no acute distress, other (middle aged but chronically ill looking CM; Atraumatic) Eyes: non-icteric ENT: oropharynx moist, other (extubated) Neck: supple, no lymphadenopathy, no JVD Effort: normal Ascultation: Bilateral: diminished breath sounds, rhonchi Percussion: Bilateral: not dull Cardiovascular: irregular rhythm, other (No R/M) Gastrointestinal: normoactive bowel sounds, soft, non-tender, non-distended Integumentary: other (poor turgor) Extremities: no cyanosis, no edema, pink and warm, pulses normal, no ischemia or petechiae Neurologic: pupils equal and round, CN II-XII normal, other (left hemiparesis) CBC and BMP: 10/17/18 05:40 10/15/18 12:00 ABG, PT/INR, D-dimer: ABG POC ABG pH 7.393 (7.35-7.45) 10/16/18 12:51 POC ABG pCO2 48.9 (35-45) H 10/16/18 12:51 POC ABG pO2 92 (80-105) 10/16/18 12:51 POC ABG HCO3 29.8 (22-26 mml/L) 10/16/18 12:51 POC ABG Total CO2 31 (23-27mmol/L) 10/16/18 12:51 POC ABG O2 Sat 97 10/16/18 12:51 PT/INR, D-dimer PT 14.7 Sec. (12.2-14.9) 10/11/18 08:29 INR 1.08 (0.87-1.13) 10/11/18 08:29 Abnormal lab findings: Abnormal Labs 10/11/18 10/11/18 10/11/18 00:16 00:16 00:16 WBC 20.1 H Hgb Hct MCV 98 H RDW 15.4 H Plt Count [place] % (Auto) [place] # Seg Neutrophils % Seg Neuts % (Manual) Lymphocytes % (Manual) 5.0 L Monocytes % (Manual) 25.0 H Seg Neutrophils # Seg Neutrophils # Man 9.2 H Lymphocytes # (Manual) 1.0 L Monocytes # (Manual) 5.0 H APTT POC ABG pH POC ABG pCO2 POC ABG pO2 Sodium Potassium 5.8 H Chloride Carbon Dioxide 17 L BUN Creatinine 2.2 H Glucose 348 H POC Glucose Lactic Acid 13.70 H* Calcium 7.7 L Phosphorus Total Bilirubin 1.50 H AST 179 H ALT 110 H Total Creatine Kinase 324 H CK-MB (CK-2) Troponin T 0.257 H* Total Protein 5.9 L Albumin 2.9 L HDL Cholesterol 19 L Salicylates Acetaminophen 10/11/18 10/11/18 10/11/18 00:16 00:16 01:21 WBC Hgb Hct MCV RDW Plt Count [place] % (Auto) [place] # Seg Neutrophils % Seg Neuts % (Manual) Lymphocytes % (Manual) Monocytes % (Manual) Seg Neutrophils # Seg Neutrophils # Man Lymphocytes # (Manual) Monocytes # (Manual) APTT POC ABG pH 7.110 L POC ABG pCO2 50.3 H POC ABG pO2 65 L Sodium Potassium Chloride Carbon Dioxide BUN Creatinine Glucose POC Glucose Lactic Acid Calcium Phosphorus Total Bilirubin AST ALT Total Creatine Kinase CK-MB (CK-2) Troponin T Total Protein Albumin HDL Cholesterol Salicylates < 0.3 L Acetaminophen < 5.0 L 10/11/18 10/11/18 10/11/18 01:22 03:27 04:14 WBC Hgb Hct MCV RDW Plt Count [place] % (Auto) [place] # Seg Neutrophils % Seg Neuts % (Manual) Lymphocytes % (Manual) Monocytes % (Manual) Seg Neutrophils # Seg Neutrophils # Man Lymphocytes # (Manual) Monocytes # (Manual) APTT POC ABG pH POC ABG pCO2 POC ABG pO2 Sodium Potassium Chloride Carbon Dioxide BUN Creatinine Glucose POC Glucose Lactic Acid 8.50 H* 4.10 H* Calcium Phosphorus 4.90 H Total Bilirubin AST ALT Total Creatine Kinase CK-MB (CK-2) Troponin T Total Protein Albumin HDL Cholesterol Salicylates Acetaminophen 10/11/18 10/11/18 10/11/18 04:14 04:14 04:14 WBC Hgb Hct MCV RDW Plt Count [place] % (Auto) [place] # Seg Neutrophils % Seg Neuts % (Manual) Lymphocytes % (Manual) Monocytes % (Manual) Seg Neutrophils # Seg Neutrophils # Man Lymphocytes # (Manual) Monocytes # (Manual) APTT POC ABG pH POC ABG pCO2 POC ABG pO2 Sodium Potassium 5.6 H Chloride Carbon Dioxide 19 L BUN Creatinine 1.6 H Glucose 329 H POC Glucose 328 H Lactic Acid Calcium 7.3 L Phosphorus Total Bilirubin AST ALT Total Creatine Kinase CK-MB (CK-2) Troponin T 1.130 H* D Total Protein Albumin HDL Cholesterol Salicylates Acetaminophen 10/11/18 10/11/18 10/11/18 05:10 05:32 05:58 WBC Hgb Hct MCV RDW Plt Count [place] % (Auto) [place] # Seg Neutrophils % Seg Neuts % (Manual) Lymphocytes % (Manual) Monocytes % (Manual) Seg Neutrophils # Seg Neutrophils # Man Lymphocytes # (Manual) Monocytes # (Manual) APTT POC ABG pH 7.259 L POC ABG pCO2 45.6 H POC ABG pO2 Sodium Potassium Chloride 108.6 H Carbon Dioxide 20 L BUN Creatinine 1.8 H Glucose 269 H POC Glucose 273 H Lactic Acid Calcium 7.0 L Phosphorus Total Bilirubin AST ALT Total Creatine Kinase CK-MB (CK-2) Troponin T Total Protein Albumin HDL Cholesterol Salicylates Acetaminophen 10/11/18 10/11/18 10/11/18 05:58 06:39 07:00 WBC Hgb Hct MCV RDW Plt Count [place] % (Auto) [place] # Seg Neutrophils % Seg Neuts % (Manual) Lymphocytes % (Manual) Monocytes % (Manual) Seg Neutrophils # Seg Neutrophils # Man Lymphocytes # (Manual) Monocytes # (Manual) APTT POC ABG pH POC ABG pCO2 POC ABG pO2 Sodium Potassium Chloride Carbon Dioxide BUN Creatinine Glucose POC Glucose 247 H Lactic Acid 3.20 H* 3.30 H* Calcium Phosphorus Total Bilirubin AST ALT Total Creatine Kinase CK-MB (CK-2) Troponin T Total Protein Albumin HDL Cholesterol Salicylates Acetaminophen 10/11/18 10/11/18 10/11/18 07:00 07:30 07:36 WBC Hgb Hct MCV RDW Plt Count [place] % (Auto) [place] # Seg Neutrophils % Seg Neuts % (Manual) Lymphocytes % (Manual) Monocytes % (Manual) Seg Neutrophils # Seg Neutrophils # Man Lymphocytes # (Manual) Monocytes # (Manual) APTT POC ABG pH POC ABG pCO2 POC ABG pO2 Sodium 146 H Potassium Chloride 112.1 H Carbon Dioxide 21 L BUN Creatinine 1.6 H Glucose 218 H POC Glucose Lactic Acid 3.20 H* Calcium 7.0 L Phosphorus Total Bilirubin AST ALT Total Creatine Kinase CK-MB (CK-2) Troponin T 1.020 H* Total Protein Albumin HDL Cholesterol Salicylates Acetaminophen 10/11/18 10/11/18 10/11/18 07:43 08:29 08:29 WBC Hgb 16.2 H Hct 49.9 H D MCV RDW Plt Count [place] % (Auto) [place] # Seg Neutrophils % Seg Neuts % (Manual) Lymphocytes % (Manual) Monocytes % (Manual) Seg Neutrophils # Seg Neutrophils # Man Lymphocytes # (Manual) Monocytes # (Manual) APTT POC ABG pH POC ABG pCO2 POC ABG pO2 Sodium Potassium Chloride Carbon Dioxide BUN Creatinine Glucose POC Glucose 174 H Lactic Acid 3.90 H* Calcium Phosphorus Total Bilirubin AST ALT Total Creatine Kinase CK-MB (CK-2) Troponin T Total Protein Albumin HDL Cholesterol Salicylates Acetaminophen 10/11/18 10/11/18 10/11/18 08:29 08:42 11:05 WBC Hgb Hct MCV RDW Plt Count [place] % (Auto) [place] # Seg Neutrophils % Seg Neuts % (Manual) Lymphocytes % (Manual) Monocytes % (Manual) Seg Neutrophils # Seg Neutrophils # Man Lymphocytes # (Manual) Monocytes # (Manual) APTT 24.1 L POC ABG pH POC ABG pCO2 POC ABG pO2 Sodium 147 H Potassium Chloride 113.3 H Carbon Dioxide 21 L BUN Creatinine 1.7 H Glucose 119 H POC Glucose 164 H Lactic Acid Calcium 7.7 L Phosphorus Total Bilirubin AST ALT Total Creatine Kinase CK-MB (CK-2) Troponin T Total Protein Albumin HDL Cholesterol Salicylates Acetaminophen 10/11/18 10/11/18 10/11/18 11:05 11:06 12:30 WBC Hgb Hct MCV RDW Plt Count [place] % (Auto) [place] # Seg Neutrophils % Seg Neuts % (Manual) Lymphocytes % (Manual) Monocytes % (Manual) Seg Neutrophils # Seg Neutrophils # Man Lymphocytes # (Manual) Monocytes # (Manual) APTT POC ABG pH POC ABG pCO2 POC ABG pO2 Sodium 148 H Potassium Chloride 113.4 H Carbon Dioxide 21 L BUN Creatinine 1.6 H Glucose 119 H POC Glucose 116 H Lactic Acid 3.20 H* Calcium 7.5 L Phosphorus Total Bilirubin AST ALT Total Creatine Kinase CK-MB (CK-2) Troponin T Total Protein Albumin HDL Cholesterol Salicylates Acetaminophen 10/11/18 10/11/18 10/11/18 12:30 13:16 13:25 WBC Hgb Hct MCV RDW Plt Count [place] % (Auto) [place] # Seg Neutrophils % Seg Neuts % (Manual) Lymphocytes % (Manual) Monocytes % (Manual) Seg Neutrophils # Seg Neutrophils # Man Lymphocytes # (Manual) Monocytes # (Manual) APTT POC ABG pH 7.247 L POC ABG pCO2 48.4 H POC ABG pO2 Sodium Potassium Chloride Carbon Dioxide BUN Creatinine Glucose POC Glucose 112 H Lactic Acid 2.70 H* Calcium Phosphorus Total Bilirubin AST ALT Total Creatine Kinase CK-MB (CK-2) Troponin T Total Protein Albumin HDL Cholesterol Salicylates Acetaminophen 10/11/18 10/11/18 10/11/18 14:41 15:27 16:13 WBC Hgb Hct MCV RDW Plt Count [place] % (Auto) [place] # Seg Neutrophils % Seg Neuts % (Manual) Lymphocytes % (Manual) Monocytes % (Manual) Seg Neutrophils # Seg Neutrophils # Man Lymphocytes # (Manual) Monocytes # (Manual) APTT POC ABG pH POC ABG pCO2 POC ABG pO2 Sodium Potassium Chloride Carbon Dioxide BUN Creatinine Glucose POC Glucose 127 H 141 H 134 H Lactic Acid Calcium Phosphorus Total Bilirubin AST ALT Total Creatine Kinase CK-MB (CK-2) Troponin T Total Protein Albumin HDL Cholesterol Salicylates Acetaminophen 10/11/18 10/11/18 10/11/18 17:18 18:23 19:38 WBC Hgb Hct MCV RDW Plt Count [place] % (Auto) [place] # Seg Neutrophils % Seg Neuts % (Manual) Lymphocytes % (Manual) Monocytes % (Manual) Seg Neutrophils # Seg Neutrophils # Man Lymphocytes # (Manual) Monocytes # (Manual) APTT POC ABG pH POC ABG pCO2 POC ABG pO2 Sodium 148 H Potassium Chloride 112.7 H Carbon Dioxide BUN 23 H Creatinine Glucose 143 H POC Glucose 132 H 129 H Lactic Acid Calcium 7.9 L Phosphorus Total Bilirubin AST ALT Total Creatine Kinase CK-MB (CK-2) Troponin T Total Protein Albumin HDL Cholesterol Salicylates Acetaminophen 10/11/18 10/11/18 10/11/18 20:19 20:36 21:01 WBC Hgb Hct MCV RDW Plt Count [place] % (Auto) [place] # Seg Neutrophils % Seg Neuts % (Manual) Lymphocytes % (Manual) Monocytes % (Manual) Seg Neutrophils # Seg Neutrophils # Man Lymphocytes # (Manual) Monocytes # (Manual) APTT POC ABG pH 7.281 L POC ABG pCO2 POC ABG pO2 Sodium Potassium Chloride Carbon Dioxide BUN Creatinine Glucose POC Glucose 129 H 151 H Lactic Acid Calcium Phosphorus Total Bilirubin AST ALT Total Creatine Kinase CK-MB (CK-2) Troponin T Total Protein Albumin HDL Cholesterol Salicylates Acetaminophen 10/11/18 10/11/18 10/12/18 22:04 23:15 01:18 WBC Hgb Hct MCV RDW Plt Count [place] % (Auto) [place] # Seg Neutrophils % Seg Neuts % (Manual) Lymphocytes % (Manual) Monocytes % (Manual) Seg Neutrophils # Seg Neutrophils # Man Lymphocytes # (Manual) Monocytes # (Manual) APTT POC ABG pH POC ABG pCO2 POC ABG pO2 Sodium Potassium Chloride Carbon Dioxide BUN Creatinine Glucose POC Glucose 147 H 143 H 158 H Lactic Acid Calcium Phosphorus Total Bilirubin AST ALT Total Creatine Kinase CK-MB (CK-2) Troponin T Total Protein Albumin HDL Cholesterol Salicylates Acetaminophen 10/12/18 10/12/18 10/12/18 02:13 03:18 04:04 WBC Hgb Hct MCV RDW Plt Count [place] % (Auto) [place] # Seg Neutrophils % Seg Neuts % (Manual) Lymphocytes % (Manual) Monocytes % (Manual) Seg Neutrophils # Seg Neutrophils # Man Lymphocytes # (Manual) Monocytes # (Manual) APTT POC ABG pH POC ABG pCO2 POC ABG pO2 Sodium 147 H Potassium Chloride 111.1 H Carbon Dioxide BUN 30 H Creatinine 2.0 H Glucose 154 H POC Glucose 148 H 142 H Lactic Acid Calcium 8.1 L Phosphorus Total Bilirubin AST 269 H ALT 204 H Total Creatine Kinase 3647 H CK-MB (CK-2) 48.3 H Troponin T 2.230 H* D Total Protein 5.8 L Albumin 2.6 L HDL Cholesterol Salicylates Acetaminophen 10/12/18 10/12/18 10/12/18 04:04 04:08 04:19 WBC 24.4 H Hgb Hct MCV RDW Plt Count [place] % (Auto) [place] # Seg Neutrophils % Seg Neuts % (Manual) 32.0 L Lymphocytes % (Manual) Monocytes % (Manual) 8.0 H Seg Neutrophils # Seg Neutrophils # Man 7.8 H Lymphocytes # (Manual) Monocytes # (Manual) 2.0 H APTT POC ABG pH 7.317 L POC ABG pCO2 49.3 H POC ABG pO2 Sodium Potassium Chloride Carbon Dioxide BUN Creatinine Glucose POC Glucose 143 H Lactic Acid Calcium Phosphorus Total Bilirubin AST ALT Total Creatine Kinase CK-MB (CK-2) Troponin T Total Protein Albumin HDL Cholesterol Salicylates Acetaminophen 10/12/18 10/12/18 10/12/18 05:29 06:52 08:09 WBC Hgb Hct MCV RDW Plt Count [place] % (Auto) [place] # Seg Neutrophils % Seg Neuts % (Manual) Lymphocytes % (Manual) Monocytes % (Manual) Seg Neutrophils # Seg Neutrophils # Man Lymphocytes # (Manual) Monocytes # (Manual) APTT POC ABG pH 7.322 L POC ABG pCO2 46.5 H POC ABG pO2 Sodium Potassium Chloride Carbon Dioxide BUN Creatinine Glucose POC Glucose 196 H 226 H Lactic Acid Calcium Phosphorus Total Bilirubin AST ALT Total Creatine Kinase CK-MB (CK-2) Troponin T Total Protein Albumin HDL Cholesterol Salicylates Acetaminophen 10/12/18 10/12/18 10/12/18 08:38 10:03 15:50 WBC Hgb Hct MCV RDW Plt Count [place] % (Auto) [place] # Seg Neutrophils % Seg Neuts % (Manual) Lymphocytes % (Manual) Monocytes % (Manual) Seg Neutrophils # Seg Neutrophils # Man Lymphocytes # (Manual) Monocytes # (Manual) APTT POC ABG pH POC ABG pCO2 POC ABG pO2 Sodium Potassium Chloride Carbon Dioxide BUN Creatinine Glucose POC Glucose 138 H 148 H 221 H Lactic Acid Calcium Phosphorus Total Bilirubin AST ALT Total Creatine Kinase CK-MB (CK-2) Troponin T Total Protein Albumin HDL Cholesterol Salicylates Acetaminophen 10/12/18 10/12/18 10/12/18 18:39 20:56 21:34 WBC Hgb Hct MCV RDW Plt Count [place] % (Auto) [place] # Seg Neutrophils % Seg Neuts % (Manual) Lymphocytes % (Manual) Monocytes % (Manual) Seg Neutrophils # Seg Neutrophils # Man Lymphocytes # (Manual) Monocytes # (Manual) APTT POC ABG pH 7.336 L POC ABG pCO2 46.0 H POC ABG pO2 Sodium Potassium Chloride Carbon Dioxide BUN Creatinine Glucose POC Glucose 255 H 260 H Lactic Acid Calcium Phosphorus Total Bilirubin AST ALT Total Creatine Kinase CK-MB (CK-2) Troponin T Total Protein Albumin HDL Cholesterol Salicylates Acetaminophen 10/13/18 10/13/18 10/13/18 02:29 05:09 05:40 WBC 17.0 H Hgb Hct MCV RDW Plt Count [place] % (Auto) 9.2 H [place] # 1.6 H Seg Neutrophils % 76.2 H Seg Neuts % (Manual) Lymphocytes % (Manual) Monocytes % (Manual) Seg Neutrophils # 12.9 H Seg Neutrophils # Man Lymphocytes # (Manual) Monocytes # (Manual) APTT POC ABG pH POC ABG pCO2 POC ABG pO2 Sodium Potassium Chloride Carbon Dioxide BUN Creatinine Glucose POC Glucose 216 H 249 H Lactic Acid Calcium Phosphorus Total Bilirubin AST ALT Total Creatine Kinase CK-MB (CK-2) Troponin T Total Protein Albumin HDL Cholesterol Salicylates Acetaminophen 10/13/18 10/13/18 10/13/18 05:40 05:40 09:46 WBC Hgb Hct MCV RDW Plt Count [place] % (Auto) [place] # Seg Neutrophils % Seg Neuts % (Manual) Lymphocytes % (Manual) Monocytes % (Manual) Seg Neutrophils # Seg Neutrophils # Man Lymphocytes # (Manual) Monocytes # (Manual) APTT POC ABG pH POC ABG pCO2 POC ABG pO2 Sodium 146 H Potassium Chloride 109.8 H Carbon Dioxide BUN 35 H Creatinine Glucose 245 H POC Glucose 235 H Lactic Acid Calcium 7.9 L Phosphorus Total Bilirubin AST ALT Total Creatine Kinase CK-MB (CK-2) Troponin T 0.952 H* D Total Protein Albumin HDL Cholesterol Salicylates Acetaminophen 10/13/18 10/13/18 10/13/18 13:12 13:58 16:15 WBC Hgb Hct MCV RDW Plt Count [place] % (Auto) [place] # Seg Neutrophils % Seg Neuts % (Manual) Lymphocytes % (Manual) Monocytes % (Manual) Seg Neutrophils # Seg Neutrophils # Man Lymphocytes # (Manual) Monocytes # (Manual) APTT POC ABG pH POC ABG pCO2 46.2 H 51.2 H POC ABG pO2 52 L Sodium Potassium Chloride Carbon Dioxide BUN Creatinine Glucose POC Glucose Lactic Acid Calcium Phosphorus Total Bilirubin AST ALT Total Creatine Kinase CK-MB (CK-2) Troponin T 0.816 H* Total Protein Albumin HDL Cholesterol Salicylates Acetaminophen 10/13/18 10/13/18 10/14/18 17:30 21:25 01:49 WBC Hgb Hct MCV RDW Plt Count [place] % (Auto) [place] # Seg Neutrophils % Seg Neuts % (Manual) Lymphocytes % (Manual) Monocytes % (Manual) Seg Neutrophils # Seg Neutrophils # Man Lymphocytes # (Manual) Monocytes # (Manual) APTT POC ABG pH POC ABG pCO2 POC ABG pO2 Sodium Potassium Chloride Carbon Dioxide BUN Creatinine Glucose POC Glucose 139 H 205 H 166 H Lactic Acid Calcium Phosphorus Total Bilirubin AST ALT Total Creatine Kinase CK-MB (CK-2) Troponin T Total Protein Albumin HDL Cholesterol Salicylates Acetaminophen 10/14/18 10/14/18 10/14/18 04:52 05:32 09:45 WBC Hgb 11.4 L Hct 34.5 L MCV RDW Plt Count 139 L [place] % (Auto) [place] # Seg Neutrophils % Seg Neuts % (Manual) Lymphocytes % (Manual) Monocytes % (Manual) Seg Neutrophils # Seg Neutrophils # Man Lymphocytes # (Manual) Monocytes # (Manual) APTT POC ABG pH POC ABG pCO2 56.0 H POC ABG pO2 Sodium Potassium Chloride Carbon Dioxide BUN Creatinine Glucose POC Glucose 164 H Lactic Acid Calcium Phosphorus Total Bilirubin AST ALT Total Creatine Kinase CK-MB (CK-2) Troponin T Total Protein Albumin HDL Cholesterol Salicylates Acetaminophen 10/14/18 10/14/18 10/14/18 09:45 10:54 12:20 WBC Hgb Hct MCV RDW Plt Count [place] % (Auto) [place] # Seg Neutrophils % Seg Neuts % (Manual) Lymphocytes % (Manual) Monocytes % (Manual) Seg Neutrophils # Seg Neutrophils # Man Lymphocytes # (Manual) Monocytes # (Manual) APTT POC ABG pH POC ABG pCO2 POC ABG pO2 Sodium 148 H Potassium Chloride 107.3 H Carbon Dioxide 34 H D BUN Creatinine 0.7 L D Glucose 191 H POC Glucose 173 H 158 H Lactic Acid Calcium 7.3 L Phosphorus Total Bilirubin AST 110 H ALT 91 H Total Creatine Kinase CK-MB (CK-2) Troponin T Total Protein 4.9 L Albumin 2.0 L HDL Cholesterol Salicylates Acetaminophen 10/14/18 10/14/18 10/15/18 18:30 21:54 02:12 WBC Hgb Hct MCV RDW Plt Count [place] % (Auto) [place] # Seg Neutrophils % Seg Neuts % (Manual) Lymphocytes % (Manual) Monocytes % (Manual) Seg Neutrophils # Seg Neutrophils # Man Lymphocytes # (Manual) Monocytes # (Manual) APTT POC ABG pH POC ABG pCO2 POC ABG pO2 Sodium Potassium Chloride Carbon Dioxide BUN Creatinine Glucose POC Glucose 108 H 110 H 164 H Lactic Acid Calcium Phosphorus Total Bilirubin AST ALT Total Creatine Kinase CK-MB (CK-2) Troponin T Total Protein Albumin HDL Cholesterol Salicylates Acetaminophen 10/15/18 10/15/18 10/15/18 04:19 04:55 05:43 WBC Hgb Hct MCV RDW Plt Count [place] % (Auto) [place] # Seg Neutrophils % Seg Neuts % (Manual) Lymphocytes % (Manual) Monocytes % (Manual) Seg Neutrophils # Seg Neutrophils # Man Lymphocytes # (Manual) Monocytes # (Manual) APTT POC ABG pH 7.491 H POC ABG pCO2 45.1 H 47.3 H POC ABG pO2 78 L Sodium Potassium Chloride Carbon Dioxide BUN Creatinine Glucose POC Glucose 250 H Lactic Acid Calcium Phosphorus Total Bilirubin AST ALT Total Creatine Kinase CK-MB (CK-2) Troponin T Total Protein Albumin HDL Cholesterol Salicylates Acetaminophen 10/15/18 10/15/18 10/15/18 06:20 12:00 12:00 WBC Hgb 11.7 L 11.5 L Hct 34.7 L 34.0 L MCV RDW Plt Count [place] % (Auto) [place] # Seg Neutrophils % Seg Neuts % (Manual) Lymphocytes % (Manual) Monocytes % (Manual) Seg Neutrophils # Seg Neutrophils # Man Lymphocytes # (Manual) Monocytes # (Manual) APTT POC ABG pH POC ABG pCO2 POC ABG pO2 Sodium 147 H Potassium Chloride 108.5 H Carbon Dioxide BUN Creatinine 0.7 L Glucose 209 H POC Glucose Lactic Acid Calcium 7.3 L Phosphorus Total Bilirubin AST ALT Total Creatine Kinase CK-MB (CK-2) Troponin T Total Protein Albumin HDL Cholesterol Salicylates Acetaminophen 10/15/18 10/15/18 10/15/18 12:11 15:48 18:34 WBC Hgb Hct MCV RDW Plt Count [place] % (Auto) [place] # Seg Neutrophils % Seg Neuts % (Manual) Lymphocytes % (Manual) Monocytes % (Manual) Seg Neutrophils # Seg Neutrophils # Man Lymphocytes # (Manual) Monocytes # (Manual) APTT POC ABG pH POC ABG pCO2 POC ABG pO2 Sodium Potassium Chloride Carbon Dioxide BUN Creatinine Glucose POC Glucose 197 H 220 H 249 H Lactic Acid Calcium Phosphorus Total Bilirubin AST ALT Total Creatine Kinase CK-MB (CK-2) Troponin T Total Protein Albumin HDL Cholesterol Salicylates Acetaminophen 10/15/18 10/16/18 10/16/18 21:29 02:16 03:50 WBC Hgb Hct MCV RDW Plt Count [place] % (Auto) [place] # Seg Neutrophils % Seg Neuts % (Manual) Lymphocytes % (Manual) Monocytes % (Manual) Seg Neutrophils # Seg Neutrophils # Man Lymphocytes # (Manual) Monocytes # (Manual) APTT POC ABG pH POC ABG pCO2 55.8 H POC ABG pO2 Sodium Potassium Chloride Carbon Dioxide BUN Creatinine Glucose POC Glucose 209 H 110 H Lactic Acid Calcium Phosphorus Total Bilirubin AST ALT Total Creatine Kinase CK-MB (CK-2) Troponin T Total Protein Albumin HDL Cholesterol Salicylates Acetaminophen 10/16/18 10/16/18 10/16/18 05:57 10:51 12:51 WBC Hgb Hct MCV RDW Plt Count [place] % (Auto) [place] # Seg Neutrophils % Seg Neuts % (Manual) Lymphocytes % (Manual) Monocytes % (Manual) Seg Neutrophils # Seg Neutrophils # Man Lymphocytes # (Manual) Monocytes # (Manual) APTT POC ABG pH POC ABG pCO2 48.9 H POC ABG pO2 Sodium Potassium Chloride Carbon Dioxide BUN Creatinine Glucose POC Glucose 209 H 198 H Lactic Acid Calcium Phosphorus Total Bilirubin AST ALT Total Creatine Kinase CK-MB (CK-2) Troponin T Total Protein Albumin HDL Cholesterol Salicylates Acetaminophen 10/16/18 10/16/18 10/16/18 15:01 17:34 21:59 WBC Hgb Hct MCV RDW Plt Count [place] % (Auto) [place] # Seg Neutrophils % Seg Neuts % (Manual) Lymphocytes % (Manual) Monocytes % (Manual) Seg Neutrophils # Seg Neutrophils # Man Lymphocytes # (Manual) Monocytes # (Manual) APTT POC ABG pH POC ABG pCO2 POC ABG pO2 Sodium Potassium Chloride Carbon Dioxide BUN Creatinine Glucose POC Glucose 196 H 179 H 139 H Lactic Acid Calcium Phosphorus Total Bilirubin AST ALT Total Creatine Kinase CK-MB (CK-2) Troponin T Total Protein Albumin HDL Cholesterol Salicylates Acetaminophen 10/17/18 10/17/18 10/17/18 02:17 05:40 05:47 WBC Hgb 11.3 L Hct 33.2 L MCV RDW Plt Count [place] % (Auto) [place] # Seg Neutrophils % Seg Neuts % (Manual) Lymphocytes % (Manual) Monocytes % (Manual) Seg Neutrophils # Seg Neutrophils # Man Lymphocytes # (Manual) Monocytes # (Manual) APTT POC ABG pH POC ABG pCO2 POC ABG pO2 Sodium Potassium Chloride Carbon Dioxide BUN Creatinine Glucose POC Glucose 135 H 125 H Lactic Acid Calcium Phosphorus Total Bilirubin AST ALT Total Creatine Kinase CK-MB (CK-2) Troponin T Total Protein Albumin HDL Cholesterol Salicylates Acetaminophen Allied health notes reviewed: nursing
--- NOTE | 2018-10-17 10:19 | Progress Note ---
Assessment and Plan Possible acute/subacute right FT CVA - Initial CT head had no acute finding, 10/13/18 found unable to move left side - MRI brain showed numerous acute/subacute multilobar infarcts involving the cerebrum and cerebellum including Hemorrhagic transformation of the right frontal and biparietal lobes - was Not a candidate for tPA, cont to monitor off aspirin per teleneurology - plan for QUIQUE today Acute thrombus in bilateral lower extremities - showed on 10/13/18 LE arterial doppler - will not start heparin drip due to acute CVA - vascular consulted, medical Mx for now as not a candidate for surgical intervention as he can't be anticoagulated Severe sepsis with shock -Probably secondary to pneumonia -On IV broad-spectrum antibiotics with Unasyn for total 7 days -weaned off Levophed -Blood and sputum cultures negative so far Acute respiratory failure with hypoxia and hypercapnia -Probably secondary to acute COPD/asthma exacerbation and PNA -Required intubation on mechanical ventilator since admission -Pulmonology consulted, s/p extubation 10/16/18 - cont nebs , supplemental O2 as needed LLL pneumonia with mucous plugging on CTA, POA - likely from aspiration? cont abx unasun for total 7 days Hyperglycemia, not in DKA -s/p insulin drip, cont SSI for now, diabetic diet Acute toxic/metabolic encephalopathy, improved -Secondary to drug overdose versus sepsis/DKA vs acute CVA -Initial Head CT scan was negative negative - repeat CT head and MRI showed numerous acute/subacute multilobar infarcts involving the cerebrum and cerebellum including Hemorrhagic transformation of the largest infarcts that involve the right frontal and biparietal lobes - neurology following the patient Seizure -s/p IV lorazepam drip, will defer to neurology for AED - EEG pending Elevated troponin/NSTEMI type 2 -Probably secondary to demand ischemia from acute process/sepsis and underlying CHF -Echocardiogram for further evaluation - Ef 25-30% -Cardiology consulted, recommended medical Mx for now, Acute systolic CHF, Ef 25-30% - monitor ins/os, medical Mx for now, cardiology following ARF, due to vasomotor nephropathy, resolved -On IV fluid, will cont to monitor creatinine level Hyperkalemia, resolved Abnormal LFT -Probably due to sepsis and chronic hepatitis C virus infection -Abdominal US showed no sign of cirrhosis Severe protein calorie malnutrition -Dietitian consulted DVT prophylaxis with heparin and GI prophylaxis with famotidine Disposition: Patient will be transferred to [facility] Brief History: Patient is a 58-year-old male who was brought to the ED by EMS on account of altered mental status. It was reported that patient was found unresponsive by friends and family. Patient's last known well time was 10:30 PM on 10/10/18. He was given Narcan by EMS en route to the hospital with minimal response. Patient began to seize as EMS pulled into the hospital. Per report, family told EMS that the patient overdosed and has been using Dilaudid. He was intubated in the ER to protect airway, admitted to ICU for further evaluation. On 10/13/18 he noted unable to move left side with b/l cold LE. A stat CT head and arterial doppler ordered showed multiple embolic CVAs and b/l LE acute arterial thrombus. Tele neurology did not recommend tPA as he has h/o hemorrhagic stoke back on March required craniotomy at [place] per family. Vascular consulted for b/l LE thrombus recommended medical mx as he cannot be anticoagulate now. Plan for repeat CT head in 10-15 days to decide for anticoagulation. s/p extubation on 10/16/18. Planned for QUIQUE today, will follow result. CT head 10/11/18: There are chronic changes as described. There is no acute abnormality. . CT head 10/13/18: Hypodense areas seen in the right frontoparietal lobes are slightly worsened compared to prior exam, and cannot rule out involving acute/subacute infarcts versus possible underlying lesions. MRI should be considered for further evaluation. No intracranial hemorrhage visualized. MRI Brain 10/15/18: Numerous acute/subacute multilobar infarcts as described above involving the cerebrum and cerebellum. Hemorrhagic transformation of the largest infarcts that involve the right frontal and biparietal lobes and evidence of older hemorrhage at the margin of older cerebellar infarcts. Postsurgical changes in the posterior fossa and several small acute/subacute cerebellar infarcts at the margin of larger late subacute infarct. LE arterial doppler 10/13/18: 1. Occlusive thrombus within the right external iliac artery extending to the right common femoral artery. 2. Occlusive thrombus within the left distal popliteal artery extending to the anterior and posterior tibial arteries which are also occluded. Subjective Date of service: 10/17/18 Principal diagnosis: Ac hypercapnic hypoxemic Resp failure; Drug OD; AE-COPD; NINOSKA; Seizures Interval history: Patient seen and examined' Noted o/n event, discussed with RN/Pulmonary Patient extubated yesterday, tolerating well, speech eval pending Discussed with Son at bedside Objective - Exam Narrative Exam: General appearance: Present: no acute distress, opens eyes to voice - EENT Eyes: Present: pupil reactive ENT: no discharge - Neck Neck: Present: supple - Respiratory Respiratory effort: normal Respiratory: bilateral: CTA - Cardiovascular Rhythm: regular (with tachycardia) Heart Sounds: Present: S1 & S2 - Extremities Extremity abnormal: b/l LE cyanosis (ischemic changes to the right foot and left foot ) - Abdominal General gastrointestinal: Present: soft, non-distended, normal bowel sounds Male genitourinary: Present: deferred - Integumentary Integumentary: Present: clear, warm, dry - Musculoskeletal Musculoskeletal: left sided weakness - Psychiatric Psychiatric: other (flat affect) - Neurologic Neurologic: focal deficits (the patient is not moving his left upper or lower extremities) - Constitutional Vitals: Vital Signs - 12hr 10/16/18 10/16/18 10/16/18 22:15 22:30 22:45 Temperature Pulse Rate 99 H 122 H 150 H Pulse Rate [ Anterior Bilateral Throughout] Pulse Rate [ Bilateral] Pulse Rate [ From Monitor] Respiratory 30 H 25 H 23 Rate Respiratory Rate [Anterior Bilateral Throughout] Respiratory Rate [Bilateral ] Blood Pressure 128/78 133/64 133/64 O2 Sat by Pulse 94 91 91 Oximetry 10/16/18 10/16/18 10/16/18 23:00 23:15 23:21 Temperature Pulse Rate 96 H 92 H 98 H Pulse Rate [ Anterior Bilateral Throughout] Pulse Rate [ Bilateral] Pulse Rate [ From Monitor] Respiratory 31 H 30 H 26 H Rate Respiratory Rate [Anterior Bilateral Throughout] Respiratory Rate [Bilateral ] Blood Pressure 116/60 133/64 133/64 O2 Sat by Pulse 95 97 98 Oximetry 10/16/18 10/16/18 10/17/18 23:30 23:45 00:00 Temperature 98.8 F Pulse Rate 96 H 100 H 95 H Pulse Rate [ Anterior Bilateral Throughout] Pulse Rate [ Bilateral] Pulse Rate [ From Monitor] Respiratory 25 H 26 H 27 H Rate Respiratory Rate [Anterior Bilateral Throughout] Respiratory Rate [Bilateral ] Blood Pressure 121/69 121/69 117/61 O2 Sat by Pulse 95 96 90 Oximetry 10/17/18 10/17/18 10/17/18 00:06 00:15 00:30 Temperature Pulse Rate 94 H 84 84 Pulse Rate [ Anterior Bilateral Throughout] Pulse Rate [ Bilateral] Pulse Rate [ From Monitor] Respiratory 20 29 H Rate Respiratory Rate [Anterior Bilateral Throughout] Respiratory Rate [Bilateral ] Blood Pressure 117/61 121/69 118/70 O2 Sat by Pulse 92 99 Oximetry 10/17/18 10/17/18 10/17/18 00:45 01:00 01:15 Temperature Pulse Rate 92 H 89 89 Pulse Rate [ Anterior Bilateral Throughout] Pulse Rate [ Bilateral] Pulse Rate [ From Monitor] Respiratory 23 25 H 26 H Rate Respiratory Rate [Anterior Bilateral Throughout] Respiratory Rate [Bilateral ] Blood Pressure 118/70 136/72 118/70 O2 Sat by Pulse 95 96 96 Oximetry 10/17/18 10/17/18 10/17/18 01:30 01:45 02:01 Temperature Pulse Rate 91 H 88 90 Pulse Rate [ Anterior Bilateral Throughout] Pulse Rate [ Bilateral] Pulse Rate [ From Monitor] Respiratory 20 23 24 Rate Respiratory Rate [Anterior Bilateral Throughout] Respiratory Rate [Bilateral ] Blood Pressure 134/78 136/72 130/67 O2 Sat by Pulse 95 97 95 Oximetry 10/17/18 10/17/18 10/17/18 02:15 02:30 02:45 Temperature Pulse Rate 87 96 H 91 H Pulse Rate [ Anterior Bilateral Throughout] Pulse Rate [ Bilateral] Pulse Rate [ From Monitor] Respiratory 30 H 25 H 32 H Rate Respiratory Rate [Anterior Bilateral Throughout] Respiratory Rate [Bilateral ] Blood Pressure 134/78 128/72 128/72 O2 Sat by Pulse 97 91 95 Oximetry 10/17/18 10/17/18 10/17/18 03:01 03:15 03:18 Temperature Pulse Rate 104 H 109 H Pulse Rate [ 98 H Anterior Bilateral Throughout] Pulse Rate [ Bilateral] Pulse Rate [ From Monitor] Respiratory 31 H 28 H Rate Respiratory 32 H Rate [Anterior Bilateral Throughout] Respiratory Rate [Bilateral ] Blood Pressure 130/61 130/61 O2 Sat by Pulse 94 93 Oximetry 10/17/18 10/17/18 10/17/18 03:29 03:30 03:45 Temperature Pulse Rate 96 H 101 H Pulse Rate [ 104 H Anterior Bilateral Throughout] Pulse Rate [ Bilateral] Pulse Rate [ From Monitor] Respiratory 31 H 17 Rate Respiratory 28 H Rate [Anterior Bilateral Throughout] Respiratory Rate [Bilateral ] Blood Pressure 135/63 135/63 O2 Sat by Pulse 90 94 Oximetry 10/17/18 10/17/18 10/17/18 04:00 04:15 04:30 Temperature Pulse Rate 100 H 103 H 108 H Pulse Rate [ Anterior Bilateral Throughout] Pulse Rate [ Bilateral] Pulse Rate [ From Monitor] Respiratory 31 H 36 H 34 H Rate Respiratory Rate [Anterior Bilateral Throughout] Respiratory Rate [Bilateral ] Blood Pressure 137/73 137/73 126/63 O2 Sat by Pulse 93 92 92 Oximetry 10/17/18 10/17/18 10/17/18 04:45 05:00 05:15 Temperature Pulse Rate 104 H 100 H 96 H Pulse Rate [ Anterior Bilateral Throughout] Pulse Rate [ Bilateral] Pulse Rate [ From Monitor] Respiratory 37 H 37 H 33 H Rate Respiratory Rate [Anterior Bilateral Throughout] Respiratory Rate [Bilateral ] Blood Pressure 126/63 130/68 130/68 O2 Sat by Pulse 89 89 93 Oximetry 10/17/18 10/17/18 10/17/18 05:29 05:30 05:45 Temperature Pulse Rate 95 H 93 H 95 H Pulse Rate [ Anterior Bilateral Throughout] Pulse Rate [ Bilateral] Pulse Rate [ From Monitor] Respiratory 31 H 29 H Rate Respiratory Rate [Anterior Bilateral Throughout] Respiratory Rate [Bilateral ] Blood Pressure 130/68 123/67 123/67 O2 Sat by Pulse 96 98 Oximetry 10/17/18 10/17/18 10/17/18 06:00 06:15 06:30 Temperature Pulse Rate 88 96 H 92 H Pulse Rate [ Anterior Bilateral Throughout] Pulse Rate [ Bilateral] Pulse Rate [ From Monitor] Respiratory 30 H 30 H 26 H Rate Respiratory Rate [Anterior Bilateral Throughout] Respiratory Rate [Bilateral ] Blood Pressure 122/72 122/72 127/74 O2 Sat by Pulse 98 97 96 Oximetry 10/17/18 10/17/18 10/17/18 07:00 07:30 08:00 Temperature Pulse Rate 93 H 92 H 96 H Pulse Rate [ Anterior Bilateral Throughout] Pulse Rate [ Bilateral] Pulse Rate [ 92 H From Monitor] Respiratory 35 H 33 H 29 H Rate Respiratory Rate [Anterior Bilateral Throughout] Respiratory Rate [Bilateral ] Blood Pressure 122/70 122/72 134/68 O2 Sat by Pulse 96 90 91 Oximetry 10/17/18 10/17/18 08:03 08:30 Temperature Pulse Rate 95 H Pulse Rate [ 97 H Anterior Bilateral Throughout] Pulse Rate [ 96 H Bilateral] Pulse Rate [ From Monitor] Respiratory 25 H Rate Respiratory 16 Rate [Anterior Bilateral Throughout] Respiratory 16 Rate [Bilateral ] Blood Pressure 118/71 O2 Sat by Pulse 92 Oximetry - Labs CBC & Chem 7: 10/17/18 05:40 10/15/18 12:00 Labs: Abnormal lab results 10/16/18 10/16/18 10/16/18 Range/Units 10:51 12:51 15:01 Hgb (11.8-15.2) gm/dl Hct (35.5-45.6) % POC ABG pCO2 48.9 H (35-45) POC Glucose 198 H 196 H (70-105) 10/16/18 10/16/18 10/17/18 Range/Units 17:34 21:59 02:17 Hgb (11.8-15.2) gm/dl Hct (35.5-45.6) % POC ABG pCO2 (35-45) POC Glucose 179 H 139 H 135 H (70-105) 10/17/18 10/17/18 Range/Units 05:40 05:47 Hgb 11.3 L (11.8-15.2) gm/dl Hct 33.2 L (35.5-45.6) % POC ABG pCO2 (35-45) POC Glucose 125 H (70-105)
--- NOTE | 2018-10-17 10:42 | Progress Note ---
Assessment and Plan Cultures: Blood culture 10/11/2018 no growth Sputum culture 10/12/2018 no growth Urine culture 10/11/2018 neg Assessment: 58 y/o male with history of hemorrhagic CVA in 03/2018, rheumatic fever as a child, asthma, HTN, DM, hepatitis, tobacco use, polysubstance abuse; admitted on 10/10/2018 due to altered mental status: 1) Acute encephalopathy: Improving. likely due to opioid overdose 2) Sepis: Improved. Low grade fevers continuing. Etiology most likely Left leg Ischemia. 3) LLL pneumonia with mucous plugging on CTA. On CPAP 4) Elevated LFTs from sepsis 5) NINOSKA: creatinine now 0.7 6) PVD: left leg ischemia.. Dry gangrene. 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 Recommendations: - follow-up blood cultures and sputum cultures - continue unasyn renally adjusted, D5 of D7 -vascular surgery on board. Kay Crespo NP [facility] M: [phone] O:[phone] Subjective Date of service: 10/17/18 Principal diagnosis: Ac hypercapnic hypoxemic Resp failure; Drug OD; AE-COPD; NINOSKA; Seizures Interval history: Patient seen and examined. Extubated. On 4lL/nc. Eyes open to name. Somnolent. Low grade fevers continuing. Objective - Exam Narrative Exam: General: Extubated. Somnolent. no acute distress observed Eyes: anicteric sclerae, moist conjunctivae; no lid-lag; PERRLA HENT: Atraumatic; Neck: Trachea midline; supple, no thyromegaly or lymphadenopathy Lungs: art rhonchi CV: RRR Abdomen: Soft, mild tenderness Extremities: No peripheral edema . PVD - left leg ischemia. Skin: no rash Psych:l somnolent Neuro: somnolent - Constitutional Vitals: Vital Signs Temp Pulse Resp BP Pulse Ox 98.8 F 95 H 25 H 118/71 92 10/17/18 00:00 10/17/18 08:30 10/17/18 08:30 10/17/18 08:30 10/17/18 08:30 Temperature -Last 24 Hours Temperature 98.8 F Temperature 98.9 F Temperature 98.7 F Temperature 100.1 F - Labs CBC & Chem 7: 10/17/18 05:40 10/15/18 12:00 Labs: Abnormal lab results 10/16/18 10/16/18 10/16/18 Range/Units 10:51 12:51 15:01 Hgb (11.8-15.2) gm/dl Hct (35.5-45.6) % POC ABG pCO2 48.9 H (35-45) POC Glucose 198 H 196 H (70-105) 10/16/18 10/16/18 10/17/18 Range/Units 17:34 21:59 02:17 Hgb (11.8-15.2) gm/dl Hct (35.5-45.6) % POC ABG pCO2 (35-45) POC Glucose 179 H 139 H 135 H (70-105) 10/17/18 10/17/18 10/17/18 Range/Units 05:40 05:47 10:18 Hgb 11.3 L (11.8-15.2) gm/dl Hct 33.2 L (35.5-45.6) % POC ABG pCO2 (35-45) POC Glucose 125 H 139 H (70-105)
--- NOTE | 2018-10-17 10:42 | Progress Note ---
Assessment and Plan The patient appears to be improving clinically. We will repeat a vascular ultrasound of his lower extremities. Awaiting results of QUIQUE. Subjective Date of service: 10/17/18 Principal diagnosis: Ac hypercapnic hypoxemic Resp failure; Drug OD; AE-COPD; NINOSKA; Seizures Interval history: Patient is now extubated. Undergoing QUIQUE at time of examination. His left leg has discoloration and a broken blister lateral aspect of his ankle. Objective - Constitutional Vitals: Vital Signs - 12hr 10/16/18 10/16/18 10/16/18 22:45 23:00 23:15 Temperature Pulse Rate 150 H 96 H 92 H Pulse Rate [ Anterior Bilateral Throughout] Pulse Rate [ Bilateral] Pulse Rate [ From Monitor] Respiratory 23 31 H 30 H Rate Respiratory Rate [Anterior Bilateral Throughout] Respiratory Rate [Bilateral ] Blood Pressure 133/64 116/60 133/64 O2 Sat by Pulse 91 95 97 Oximetry 10/16/18 10/16/18 10/16/18 23:21 23:30 23:45 Temperature Pulse Rate 98 H 96 H 100 H Pulse Rate [ Anterior Bilateral Throughout] Pulse Rate [ Bilateral] Pulse Rate [ From Monitor] Respiratory 26 H 25 H 26 H Rate Respiratory Rate [Anterior Bilateral Throughout] Respiratory Rate [Bilateral ] Blood Pressure 133/64 121/69 121/69 O2 Sat by Pulse 98 95 96 Oximetry 10/17/18 10/17/18 10/17/18 00:00 00:06 00:15 Temperature 98.8 F Pulse Rate 95 H 94 H 84 Pulse Rate [ Anterior Bilateral Throughout] Pulse Rate [ Bilateral] Pulse Rate [ From Monitor] Respiratory 27 H 20 Rate Respiratory Rate [Anterior Bilateral Throughout] Respiratory Rate [Bilateral ] Blood Pressure 117/61 117/61 121/69 O2 Sat by Pulse 90 92 Oximetry 10/17/18 10/17/18 10/17/18 00:30 00:45 01:00 Temperature Pulse Rate 84 92 H 89 Pulse Rate [ Anterior Bilateral Throughout] Pulse Rate [ Bilateral] Pulse Rate [ From Monitor] Respiratory 29 H 23 25 H Rate Respiratory Rate [Anterior Bilateral Throughout] Respiratory Rate [Bilateral ] Blood Pressure 118/70 118/70 136/72 O2 Sat by Pulse 99 95 96 Oximetry 10/17/18 10/17/18 10/17/18 01:15 01:30 01:45 Temperature Pulse Rate 89 91 H 88 Pulse Rate [ Anterior Bilateral Throughout] Pulse Rate [ Bilateral] Pulse Rate [ From Monitor] Respiratory 26 H 20 23 Rate Respiratory Rate [Anterior Bilateral Throughout] Respiratory Rate [Bilateral ] Blood Pressure 118/70 134/78 136/72 O2 Sat by Pulse 96 95 97 Oximetry 10/17/18 10/17/18 10/17/18 02:01 02:15 02:30 Temperature Pulse Rate 90 87 96 H Pulse Rate [ Anterior Bilateral Throughout] Pulse Rate [ Bilateral] Pulse Rate [ From Monitor] Respiratory 24 30 H 25 H Rate Respiratory Rate [Anterior Bilateral Throughout] Respiratory Rate [Bilateral ] Blood Pressure 130/67 134/78 128/72 O2 Sat by Pulse 95 97 91 Oximetry 10/17/18 10/17/18 10/17/18 02:45 03:01 03:15 Temperature Pulse Rate 91 H 104 H 109 H Pulse Rate [ Anterior Bilateral Throughout] Pulse Rate [ Bilateral] Pulse Rate [ From Monitor] Respiratory 32 H 31 H 28 H Rate Respiratory Rate [Anterior Bilateral Throughout] Respiratory Rate [Bilateral ] Blood Pressure 128/72 130/61 130/61 O2 Sat by Pulse 95 94 93 Oximetry 10/17/18 10/17/18 10/17/18 03:18 03:29 03:30 Temperature Pulse Rate 96 H Pulse Rate [ 98 H 104 H Anterior Bilateral Throughout] Pulse Rate [ Bilateral] Pulse Rate [ From Monitor] Respiratory 31 H Rate Respiratory 32 H 28 H Rate [Anterior Bilateral Throughout] Respiratory Rate [Bilateral ] Blood Pressure 135/63 O2 Sat by Pulse 90 Oximetry 10/17/18 10/17/18 10/17/18 03:45 04:00 04:15 Temperature Pulse Rate 101 H 100 H 103 H Pulse Rate [ Anterior Bilateral Throughout] Pulse Rate [ Bilateral] Pulse Rate [ From Monitor] Respiratory 17 31 H 36 H Rate Respiratory Rate [Anterior Bilateral Throughout] Respiratory Rate [Bilateral ] Blood Pressure 135/63 137/73 137/73 O2 Sat by Pulse 94 93 92 Oximetry 10/17/18 10/17/18 10/17/18 04:30 04:45 05:00 Temperature Pulse Rate 108 H 104 H 100 H Pulse Rate [ Anterior Bilateral Throughout] Pulse Rate [ Bilateral] Pulse Rate [ From Monitor] Respiratory 34 H 37 H 37 H Rate Respiratory Rate [Anterior Bilateral Throughout] Respiratory Rate [Bilateral ] Blood Pressure 126/63 126/63 130/68 O2 Sat by Pulse 92 89 89 Oximetry 10/17/18 10/17/18 10/17/18 05:15 05:29 05:30 Temperature Pulse Rate 96 H 95 H 93 H Pulse Rate [ Anterior Bilateral Throughout] Pulse Rate [ Bilateral] Pulse Rate [ From Monitor] Respiratory 33 H 31 H Rate Respiratory Rate [Anterior Bilateral Throughout] Respiratory Rate [Bilateral ] Blood Pressure 130/68 130/68 123/67 O2 Sat by Pulse 93 96 Oximetry 10/17/18 10/17/18 10/17/18 05:45 06:00 06:15 Temperature Pulse Rate 95 H 88 96 H Pulse Rate [ Anterior Bilateral Throughout] Pulse Rate [ Bilateral] Pulse Rate [ From Monitor] Respiratory 29 H 30 H 30 H Rate Respiratory Rate [Anterior Bilateral Throughout] Respiratory Rate [Bilateral ] Blood Pressure 123/67 122/72 122/72 O2 Sat by Pulse 98 98 97 Oximetry 10/17/18 10/17/18 10/17/18 06:30 07:00 07:30 Temperature Pulse Rate 92 H 93 H 92 H Pulse Rate [ Anterior Bilateral Throughout] Pulse Rate [ Bilateral] Pulse Rate [ From Monitor] Respiratory 26 H 35 H 33 H Rate Respiratory Rate [Anterior Bilateral Throughout] Respiratory Rate [Bilateral ] Blood Pressure 127/74 122/70 122/72 O2 Sat by Pulse 96 96 90 Oximetry 10/17/18 10/17/18 10/17/18 08:00 08:03 08:30 Temperature Pulse Rate 96 H 95 H Pulse Rate [ 97 H Anterior Bilateral Throughout] Pulse Rate [ 96 H Bilateral] Pulse Rate [ 92 H From Monitor] Respiratory 29 H 25 H Rate Respiratory 16 Rate [Anterior Bilateral Throughout] Respiratory 16 Rate [Bilateral ] Blood Pressure 134/68 118/71 O2 Sat by Pulse 91 92 Oximetry General appearance: Present: other - Respiratory Respiratory effort: normal - Breasts Breasts: deferred Extremities: abnormal - Gastrointestinal General gastrointestinal: Present: deferred - Genitourinary Male genitourinary: deferred - Labs CBC & Chem 7: 10/17/18 05:40 10/15/18 12:00 Labs: Abnormal lab results 10/16/18 10/16/18 10/16/18 Range/Units 10:51 12:51 15:01 Hgb (11.8-15.2) gm/dl Hct (35.5-45.6) % POC ABG pCO2 48.9 H (35-45) POC Glucose 198 H 196 H (70-105) 10/16/18 10/16/18 10/17/18 Range/Units 17:34 21:59 02:17 Hgb (11.8-15.2) gm/dl Hct (35.5-45.6) % POC ABG pCO2 (35-45) POC Glucose 179 H 139 H 135 H (70-105) 10/17/18 10/17/18 10/17/18 Range/Units 05:40 05:47 10:18 Hgb 11.3 L (11.8-15.2) gm/dl Hct 33.2 L (35.5-45.6) % POC ABG pCO2 (35-45) POC Glucose 125 H 139 H (70-105) Medications & Allergies - Medications Allergies/Adverse Reactions: Allergies No Known Allergies Allergy (Verified 10/31/14 11:20) Home Medications: Home Medications Medication Instructions Recorded Confirmed Last Taken Type Gabapentin [Neurontin] 90 mg PO Q8HR 04/22/15 04/22/15 04/21/15 History ALPRAZolam [Xanax TAB] 1 mg PO TID PRN #30 tablet 03/28/16 Unknown Rx Albuterol Sulfate [Ventolin HFA] 2 puff IH Q4H PRN #1 [id number] 03/28/16 Unknown Rx Ciprofloxacin HCl [Ciprofloxacin 500 mg PO Q12HR #30 tab 03/28/16 Unknown Rx TAB] Citalopram [celeXA] 10 mg PO QDAY #30 tablet 03/28/16 Unknown Rx Nicotine [Habitrol] 14 mg TD QDAY #30 patch 03/28/16 Unknown Rx Sitagliptin Phos/Metformin HCl 1 tab PO QDAY #30 tbmp.24hr 03/28/16 Unknown Rx [Janumet XR 100-1,000 mg] oxyCODONE /ACETAMINOPHEN [Percocet 1 tab PO Q6H PRN #60 tablet 03/28/16 Unknown Rx 5/325 mg] Active Medications: Generic Name Dose Route Start Last Admin Trade Name Freq PRN Reason Stop Dose Admin Acetaminophen 650 mg 10/11/18 04:04 10/11/18 13:40 Tylenol PO 650 mg Q4H PRN Administration Pain MILD(1-3)/Fever >100.5/HOLLINS Acetaminophen 650 mg 10/12/18 01:26 Tylenol CO Q4H PRN Pain, Mild(1-3)/Fever>100.5/HOLLINS Albuterol/Ipratropium 1 ampul 10/11/18 14:00 10/17/18 08:02 Duoneb *Not For Prn Use* IH 1 ampul Q6HRT ISAAC Administration Lipase/Protease/Amylase 1 each 10/11/18 14:12 Pancreaze 10,500 Unit FEEDTUBE PRN PRN For Clogged Feeding Tube Aspirin 325 mg 10/13/18 10:00 10/16/18 10:43 Aspirin PO 325 mg QDAY ISAAC Administration Benzocaine 1 spray 10/17/18 11:00 10/17/18 10:17 Hurricaine One 20% Topical [place] MM 10/17/18 11:01 1 spray ONCE ONE Administration Dextrose 0 ml 10/11/18 03:57 10/11/18 10:18 D50w (25gm) Syringe IV 10 ml PRN PRN Administration Hypoglycemia Famotidine 20 mg 10/15/18 10:00 10/16/18 22:36 Pepcid PO Not Given BID [facility] Hydrophilic Ointment 1 applic 10/11/18 14:00 Vaseline Lip Therapy TP Q2HR PRN Dry Lips Ampicillin Sodium/Sulbactam Sodium 3 gm in 100 mls @ 200 mls/hr 10/13/18 14:00 10/17/18 05:30 Unasyn/Ns 3 Gm/100 Ml IV 200 mls/hr Q6HR ISAAC Administration Protocol Insulin Human Regular 0 units 10/17/18 11:30 Humulin R SUB-Q ACHS [facility] Protocol Metoprolol Tartrate 2.5 mg 10/15/18 12:00 10/17/18 05:29 Lopressor IV 2.5 mg Q6HR ISAAC Administration Morphine Sulfate 2 mg 10/14/18 11:29 10/17/18 05:29 Morphine IV 2 mg Q4H PRN Administration severe pain 7-10 Multi-Ingred Cream/Lotion/Oil/Oint 1 applic 10/11/18 14:00 Artificial Tears Ophth Oint OU Q4HR PRN Dry Eye(s) Ondansetron HCl 4 mg 10/11/18 04:04 Zofran IV Q8H PRN Nausea And Vomiting Quetiapine Fumarate 200 mg 10/14/18 22:00 05/07/19 22:36 Seroquel PO Not Given QHS ISAAC Simple Syrup 15 ml 10/11/18 14:12 Simple Syrup FEEDTUBE PRN PRN Hypoglycemia Simple Syrup 30 ml 10/11/18 14:12 Simple Syrup FEEDTUBE PRN PRN Hypoglycemia Sodium Bicarbonate 325 mg 10/11/18 14:12 Sodium Bicarbonate FEEDTUBE PRN PRN For Clogged Feeding Tube Sodium Chloride 10 ml 10/11/18 10:00 10/17/18 00:08 Sodium Chloride Flush Syringe 10 Ml IV 10 ml BID ISAAC Administration Sodium Chloride 10 ml 10/11/18 04:04 Sodium Chloride Flush Syringe 10 Ml IV PRN PRN LINE FLUSH Sodium Chloride 500 ml 10/17/18 11:00 10/17/18 10:18 Nacl 0.9% 500 Ml IV 10/17/18 11:01 500 ml ONCE ONE Administration
[2018-10-17] MEDS ORDERED: HURRICAINE ONE 20% TOPICAL SPRAY MM (11:00)
[2018-10-17] MEDS ORDERED: NACL 0.9% 500 ML IV ONE (11:00)
--- NOTE | 2018-10-17 11:17 | Anesthesia Day of Surgery ---
Anesthesia Day of Surgery - Day of Surgery Patient Examined: Yes Patient H&P Reviewed: Yes Patient is NPO: Yes
--- NOTE | 2018-10-17 11:17 | Anesthesia Consultation ---
Anesthesia Consult and Med Hx Date of service: 10/17/18 - Airway Intubation Access Assessment: Possibly Difficult (uncoorperative with airway exam) - Pulmonary Exam CTA: No - Cardiac Exam Cardiac Exam: RRR - Pre-Operative Health Status ASA Pre-Surgery Classification: ASA4 Proposed Anesthetic Plan: MAC - Pulmonary Hx Smoking: Yes Hx Asthma: Yes Hx Respiratory Symptoms: Yes (respiratory failure this admission; extubated within the last 24hrs) COPD: Yes - Cardiovascular System Hx Hypertension: Yes Hx Heart Attack/AMI: Yes (NSTEMI this admission) Hx Percutaneous Transluminal Coronary Angioplasty (PTCA): No Hx Cardia Arrhythmia: Yes (a-fib with RVR this admission) Hx Pacemaker: No Hx Internal Defibrillator: No - Central Nervous System Hx Seizures: Yes (witnessed seizure en route prior to admission) CVA: Yes - Endocrine Hx Renal Disease: Yes (NINOSKA) Hx Liver Disease: Yes (HCV) Hx Insulin Dependent Diabetes: Yes - Hematic Hx Anemia: Yes - Other Systems Hx Substance Use: Yes Hx Obesity: No
--- NOTE | 2018-10-17 11:18 | Post Anesthesia Evaluation ---
- Post Anesthesia Evaluation Patient Participated: No (mentation at baseline) Airway Patent: Yes Stable Respiratory Function: Yes Nausea/Vomiting: No Pain Manageable: Yes Adequeate Hydration: Yes Anesthesia Complications: No
--- NOTE | 2018-10-17 11:19 | Progress Note ---
Assessment and Plan S/p QUIQUE this AM which was negative for thrombus or endocarditis, no intracardiac shunting, EF 35-40%. Pt pending swallow evaluation today. Cont IV lopressor and convert to PO once enteral intake is resumed. Also consider initiation of ACEI/ARB if BPs and renal function permit. Pt may benefit from heparin gtt and/or anti-platelet therapy in setting of NSTEMI and paroxysmal AFib. However, pt with reported history of hemorrhagic CVA in 03/2018 which required bore holes and craniotomy at [place]. Pt now found to have acute ischemic CVA - ? embolic etiology. Pt also noted to have bilateral ischemic changes to his lower extremities and had an arterial duplex of his bilateral lower extremities that demonstrated acute thrombus in bilateral lower extremities - vascular is following. Pt with mild anemia and thrombocytopenia. No systemic AC at this time in the setting of all of theses issues. Per neurology - Would not anticoagulate at this time. Consider repeat Ct head in 10-14 days and if no remaining hemorrhage could start antiplatelet therapy. Consider hematology consultation per primary. HIT panel pending results. Can consider stress test once medically stabilized and once mental status improves. The patient has been seen in conjunction with Dr. Sher Green who agrees with the assessment and plan of care. - Patient Problems (1) Altered mental state Current Visit: Yes Status: Acute Qualifiers: Altered mental status type: unspecified Qualified Code(s): R41.82 - Altered mental status, unspecified (2) Opiate overdose Current Visit: Yes Status: Suspected (3) Acute CVA (cerebrovascular accident) Current Visit: Yes Status: Acute (4) Cardiomyopathy Current Visit: Yes Status: Chronic (5) Paroxysmal atrial fibrillation Current Visit: Yes Status: Acute (6) Seizure Current Visit: Yes Status: Acute (7) Acute respiratory failure Current Visit: Yes Status: Acute (8) NSTEMI (non-ST elevated myocardial infarction) Current Visit: Yes Status: Acute (9) 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 Current Visit: Yes Status: Chronic (10) Hypotension Current Visit: Yes Status: Resolved Qualifiers: Hypotension type: unspecified hypotension type Qualified Code(s): I95.9 - Hypotension, unspecified (11) Acute renal insufficiency Current Visit: Yes Status: Acute (12) Lactic acid acidosis Current Visit: Yes Status: Acute (13) Diabetes mellitus with hyperglycemia Current Visit: Yes Status: Acute (14) Elevated liver enzymes Current Visit: Yes Status: Acute (15) History of hepatitis Current Visit: Yes Status: Chronic (16) History of rheumatic fever as a child Current Visit: Yes Status: Chronic (17) Polysubstance abuse Current Visit: Yes Status: Chronic (18) Tobacco use Current Visit: Yes Status: Chronic (19) Sepsis Current Visit: Yes Status: Acute Qualifiers: Sepsis type: sepsis due to unspecified organism Qualified Code(s): A41.9 - Sepsis, unspecified organism (20) Arterial thrombosis Current Visit: Yes Status: Acute Subjective Date of service: 10/17/18 Principal diagnosis: Ac hypercapnic hypoxemic Resp failure; Drug OD; AE-COPD; NINOSKA; Seizures Interval history: Pt extubated, agitated. in SR. for QUIQUE today. Objective Last Vital Signs Temp 98.8 F 10/17/18 00:00 Pulse 99 H 10/17/18 10:20 Resp 20 10/17/18 10:20 BP 126/79 10/17/18 10:20 Pulse Ox 98 10/17/18 10:20 - Physical Examination General: No Apparent Distress Neck: Positive: neck supple Cardiac: Positive: Reg Rate and Rhythm, S1/S2 Lungs: Positive: Decreased Breath Sounds Neuro: Positive: Grossly Intact Abdomen: Positive: Soft. Negative: Tender Skin: Negative: Rash Extremities: Present: Other (chronic skin changes noted bilaterally. Patient has mottling of the left leg just proximal to the ankle) - Labs and Meds CBC 10/17/18 Range/Units 05:40 Hgb 11.3 L (11.8-15.2) gm/dl Hct 33.2 L (35.5-45.6) % Plt Count 175 (140-440) K/mm3 - Imaging and Cardiology EKG: report reviewed, image reviewed Echo: report reviewed (TDS, mild LVH, severe global hypokinesis of LV, unable to estimate LVEF, trace TR. ) - Telemetry EKG Rhythm: Sinus Rhythm - EKG Sinus rhythms and dysrhythmias: sinus rhythm - Allied health notes Allied health notes reviewed: nursing
[2018-10-17] MEDS: PEPCID PO SCH ×2 (13:15→21:59)
[2018-10-17] MEDS: ASPIRIN PO SCH (13:15)
--- NOTE | 2018-10-17 14:31 | Progress Note ---
Subjective Date of service: 10/17/18 Principal diagnosis: Ac hypercapnic hypoxemic Resp failure; Drug OD; AE-COPD; NINOSKA; Seizures Interval history: awake and talking a little does respond better obviously drugs are clearing from [facility] no withdrawal seizures Objective - Vital Sign Vital Signs - 12hr 10/17/18 10/17/18 10/17/18 02:45 03:01 03:15 Pulse Rate 91 H 104 H 109 H Pulse Rate [ Anterior Bilateral Throughout] Pulse Rate [ Bilateral] Pulse Rate [ From Monitor] Pulse Rate [ Post-Procedure] Respiratory 32 H 31 H 28 H Rate Respiratory Rate [Anterior Bilateral Throughout] Respiratory Rate [Bilateral ] Respiratory Rate [Post- Procedure] Respiratory Rate [Right Arm ] Blood Pressure 128/72 130/61 130/61 Blood Pressure [Post-Procedure ] O2 Sat by Pulse 95 94 93 Oximetry O2 Sat by Pulse Oximetry [Post -Procedure] 10/17/18 10/17/18 10/17/18 03:18 03:29 03:30 Pulse Rate 96 H Pulse Rate [ 98 H 104 H Anterior Bilateral Throughout] Pulse Rate [ Bilateral] Pulse Rate [ From Monitor] Pulse Rate [ Post-Procedure] Respiratory 31 H Rate Respiratory 32 H 28 H Rate [Anterior Bilateral Throughout] Respiratory Rate [Bilateral ] Respiratory Rate [Post- Procedure] Respiratory Rate [Right Arm ] Blood Pressure 135/63 Blood Pressure [Post-Procedure ] O2 Sat by Pulse 90 Oximetry O2 Sat by Pulse Oximetry [Post -Procedure] 10/17/18 10/17/18 10/17/18 03:45 04:00 04:15 Pulse Rate 101 H 100 H 103 H Pulse Rate [ Anterior Bilateral Throughout] Pulse Rate [ Bilateral] Pulse Rate [ From Monitor] Pulse Rate [ Post-Procedure] Respiratory 17 31 H 36 H Rate Respiratory Rate [Anterior Bilateral Throughout] Respiratory Rate [Bilateral ] Respiratory Rate [Post- Procedure] Respiratory Rate [Right Arm ] Blood Pressure 135/63 137/73 137/73 Blood Pressure [Post-Procedure ] O2 Sat by Pulse 94 93 92 Oximetry O2 Sat by Pulse Oximetry [Post -Procedure] 10/17/18 10/17/18 10/17/18 04:30 04:45 05:00 Pulse Rate 108 H 104 H 100 H Pulse Rate [ Anterior Bilateral Throughout] Pulse Rate [ Bilateral] Pulse Rate [ From Monitor] Pulse Rate [ Post-Procedure] Respiratory 34 H 37 H 37 H Rate Respiratory Rate [Anterior Bilateral Throughout] Respiratory Rate [Bilateral ] Respiratory Rate [Post- Procedure] Respiratory Rate [Right Arm ] Blood Pressure 126/63 126/63 130/68 Blood Pressure [Post-Procedure ] O2 Sat by Pulse 92 89 89 Oximetry O2 Sat by Pulse Oximetry [Post -Procedure] 10/17/18 10/17/18 10/17/18 05:15 05:29 05:30 Pulse Rate 96 H 95 H 93 H Pulse Rate [ Anterior Bilateral Throughout] Pulse Rate [ Bilateral] Pulse Rate [ From Monitor] Pulse Rate [ Post-Procedure] Respiratory 33 H 31 H Rate Respiratory Rate [Anterior Bilateral Throughout] Respiratory Rate [Bilateral ] Respiratory Rate [Post- Procedure] Respiratory Rate [Right Arm ] Blood Pressure 130/68 130/68 123/67 Blood Pressure [Post-Procedure ] O2 Sat by Pulse 93 96 Oximetry O2 Sat by Pulse Oximetry [Post -Procedure] 10/17/18 10/17/18 10/17/18 05:45 06:00 06:15 Pulse Rate 95 H 88 96 H Pulse Rate [ Anterior Bilateral Throughout] Pulse Rate [ Bilateral] Pulse Rate [ From Monitor] Pulse Rate [ Post-Procedure] Respiratory 29 H 30 H 30 H Rate Respiratory Rate [Anterior Bilateral Throughout] Respiratory Rate [Bilateral ] Respiratory Rate [Post- Procedure] Respiratory Rate [Right Arm ] Blood Pressure 123/67 122/72 122/72 Blood Pressure [Post-Procedure ] O2 Sat by Pulse 98 98 97 Oximetry O2 Sat by Pulse Oximetry [Post -Procedure] 10/17/18 10/17/18 10/17/18 06:30 07:00 07:30 Pulse Rate 92 H 93 H 92 H Pulse Rate [ Anterior Bilateral Throughout] Pulse Rate [ Bilateral] Pulse Rate [ From Monitor] Pulse Rate [ Post-Procedure] Respiratory 26 H 35 H 33 H Rate Respiratory Rate [Anterior Bilateral Throughout] Respiratory Rate [Bilateral ] Respiratory Rate [Post- Procedure] Respiratory Rate [Right Arm ] Blood Pressure 127/74 122/70 122/72 Blood Pressure [Post-Procedure ] O2 Sat by Pulse 96 96 90 Oximetry O2 Sat by Pulse Oximetry [Post -Procedure] 10/17/18 10/17/18 10/17/18 08:00 08:03 08:30 Pulse Rate 96 H 95 H Pulse Rate [ 97 H Anterior Bilateral Throughout] Pulse Rate [ 96 H Bilateral] Pulse Rate [ 92 H From Monitor] Pulse Rate [ Post-Procedure] Respiratory 29 H 25 H Rate Respiratory 16 Rate [Anterior Bilateral Throughout] Respiratory 16 Rate [Bilateral ] Respiratory Rate [Post- Procedure] Respiratory Rate [Right Arm ] Blood Pressure 134/68 118/71 Blood Pressure [Post-Procedure ] O2 Sat by Pulse 91 92 Oximetry O2 Sat by Pulse Oximetry [Post -Procedure] 10/17/18 10/17/18 10/17/18 09:00 09:30 10:00 Pulse Rate 99 H 97 H 94 H Pulse Rate [ Anterior Bilateral Throughout] Pulse Rate [ Bilateral] Pulse Rate [ From Monitor] Pulse Rate [ Post-Procedure] Respiratory 29 H 33 H 30 H Rate Respiratory Rate [Anterior Bilateral Throughout] Respiratory Rate [Bilateral ] Respiratory Rate [Post- Procedure] Respiratory 28 H Rate [Right Arm ] Blood Pressure 131/74 120/71 124/74 Blood Pressure [Post-Procedure ] O2 Sat by Pulse 91 87 96 Oximetry O2 Sat by Pulse Oximetry [Post -Procedure] 10/17/18 10/17/18 10/17/18 10:20 10:31 11:00 Pulse Rate 97 H 97 H Pulse Rate [ Anterior Bilateral Throughout] Pulse Rate [ Bilateral] Pulse Rate [ From Monitor] Pulse Rate [ 99 H Post-Procedure] Respiratory 29 H 30 H Rate Respiratory Rate [Anterior Bilateral Throughout] Respiratory Rate [Bilateral ] Respiratory 20 Rate [Post- Procedure] Respiratory Rate [Right Arm ] Blood Pressure 128/68 130/72 Blood Pressure 126/79 [Post-Procedure ] O2 Sat by Pulse 95 96 Oximetry O2 Sat by Pulse 98 Oximetry [Post -Procedure] 10/17/18 10/17/18 10/17/18 11:31 12:00 12:31 Pulse Rate 107 H 95 H 94 H Pulse Rate [ Anterior Bilateral Throughout] Pulse Rate [ Bilateral] Pulse Rate [ From Monitor] Pulse Rate [ Post-Procedure] Respiratory 21 37 H 33 H Rate Respiratory Rate [Anterior Bilateral Throughout] Respiratory Rate [Bilateral ] Respiratory Rate [Post- Procedure] Respiratory Rate [Right Arm ] Blood Pressure 111/79 121/72 102/78 Blood Pressure [Post-Procedure ] O2 Sat by Pulse 95 91 93 Oximetry O2 Sat by Pulse Oximetry [Post -Procedure] 10/17/18 10/17/18 10/17/18 13:00 13:16 13:24 Pulse Rate 101 H 98 H Pulse Rate [ Anterior Bilateral Throughout] Pulse Rate [ Bilateral] Pulse Rate [ From Monitor] Pulse Rate [ Post-Procedure] Respiratory 27 H 39 H Rate Respiratory Rate [Anterior Bilateral Throughout] Respiratory Rate [Bilateral ] Respiratory Rate [Post- Procedure] Respiratory Rate [Right Arm ] Blood Pressure 119/80 119/80 Blood Pressure [Post-Procedure ] O2 Sat by Pulse 90 Oximetry O2 Sat by Pulse Oximetry [Post -Procedure] 10/17/18 13:31 Pulse Rate 105 H Pulse Rate [ 94 H Anterior Bilateral Throughout] Pulse Rate [ 92 H Bilateral] Pulse Rate [ From Monitor] Pulse Rate [ Post-Procedure] Respiratory 24 Rate Respiratory 16 Rate [Anterior Bilateral Throughout] Respiratory 16 Rate [Bilateral ] Respiratory Rate [Post- Procedure] Respiratory Rate [Right Arm ] Blood Pressure 119/80 Blood Pressure [Post-Procedure ] O2 Sat by Pulse 94 Oximetry O2 Sat by Pulse Oximetry [Post -Procedure] - Laboratory Findings CBC and BMP: 10/17/18 05:40 10/15/18 12:00 Abnormal Lab Findings: Abnormal Labs 10/11/18 10/11/18 10/11/18 00:16 00:16 00:16 WBC 20.1 H Hgb Hct MCV 98 H RDW 15.4 H Plt Count [place] % (Auto) [place] # Seg Neutrophils % Seg Neuts % (Manual) Lymphocytes % (Manual) 5.0 L Monocytes % (Manual) 25.0 H Seg Neutrophils # Seg Neutrophils # Man 9.2 H Lymphocytes # (Manual) 1.0 L Monocytes # (Manual) 5.0 H APTT POC ABG pH POC ABG pCO2 POC ABG pO2 Sodium Potassium 5.8 H Chloride Carbon Dioxide 17 L BUN Creatinine 2.2 H Glucose 348 H POC Glucose Lactic Acid 13.70 H* Calcium 7.7 L Phosphorus Total Bilirubin 1.50 H AST 179 H ALT 110 H Total Creatine Kinase 324 H CK-MB (CK-2) Troponin T 0.257 H* Total Protein 5.9 L Albumin 2.9 L HDL Cholesterol 19 L Salicylates Acetaminophen 10/11/18 10/11/18 10/11/18 00:16 00:16 01:21 WBC Hgb Hct MCV RDW Plt Count [place] % (Auto) [place] # Seg Neutrophils % Seg Neuts % (Manual) Lymphocytes % (Manual) Monocytes % (Manual) Seg Neutrophils # Seg Neutrophils # Man Lymphocytes # (Manual) Monocytes # (Manual) APTT POC ABG pH 7.110 L POC ABG pCO2 50.3 H POC ABG pO2 65 L Sodium Potassium Chloride Carbon Dioxide BUN Creatinine Glucose POC Glucose Lactic Acid Calcium Phosphorus Total Bilirubin AST ALT Total Creatine Kinase CK-MB (CK-2) Troponin T Total Protein Albumin HDL Cholesterol Salicylates < 0.3 L Acetaminophen < 5.0 L 10/11/18 10/11/18 10/11/18 01:22 03:27 04:14 WBC Hgb Hct MCV RDW Plt Count [place] % (Auto) [place] # Seg Neutrophils % Seg Neuts % (Manual) Lymphocytes % (Manual) Monocytes % (Manual) Seg Neutrophils # Seg Neutrophils # Man Lymphocytes # (Manual) Monocytes # (Manual) APTT POC ABG pH POC ABG pCO2 POC ABG pO2 Sodium Potassium Chloride Carbon Dioxide BUN Creatinine Glucose POC Glucose Lactic Acid 8.50 H* 4.10 H* Calcium Phosphorus 4.90 H Total Bilirubin AST ALT Total Creatine Kinase CK-MB (CK-2) Troponin T Total Protein Albumin HDL Cholesterol Salicylates Acetaminophen 10/11/18 10/11/18 10/11/18 04:14 04:14 04:14 WBC Hgb Hct MCV RDW Plt Count [place] % (Auto) [place] # Seg Neutrophils % Seg Neuts % (Manual) Lymphocytes % (Manual) Monocytes % (Manual) Seg Neutrophils # Seg Neutrophils # Man Lymphocytes # (Manual) Monocytes # (Manual) APTT POC ABG pH POC ABG pCO2 POC ABG pO2 Sodium Potassium 5.6 H Chloride Carbon Dioxide 19 L BUN Creatinine 1.6 H Glucose 329 H POC Glucose 328 H Lactic Acid Calcium 7.3 L Phosphorus Total Bilirubin AST ALT Total Creatine Kinase CK-MB (CK-2) Troponin T 1.130 H* D Total Protein Albumin HDL Cholesterol Salicylates Acetaminophen 10/11/18 10/11/18 10/11/18 05:10 05:32 05:58 WBC Hgb Hct MCV RDW Plt Count [place] % (Auto) [place] # Seg Neutrophils % Seg Neuts % (Manual) Lymphocytes % (Manual) Monocytes % (Manual) Seg Neutrophils # Seg Neutrophils # Man Lymphocytes # (Manual) Monocytes # (Manual) APTT POC ABG pH 7.259 L POC ABG pCO2 45.6 H POC ABG pO2 Sodium Potassium Chloride 108.6 H Carbon Dioxide 20 L BUN Creatinine 1.8 H Glucose 269 H POC Glucose 273 H Lactic Acid Calcium 7.0 L Phosphorus Total Bilirubin AST ALT Total Creatine Kinase CK-MB (CK-2) Troponin T Total Protein Albumin HDL Cholesterol Salicylates Acetaminophen 10/11/18 10/11/18 10/11/18 05:58 06:39 07:00 WBC Hgb Hct MCV RDW Plt Count [place] % (Auto) [place] # Seg Neutrophils % Seg Neuts % (Manual) Lymphocytes % (Manual) Monocytes % (Manual) Seg Neutrophils # Seg Neutrophils # Man Lymphocytes # (Manual) Monocytes # (Manual) APTT POC ABG pH POC ABG pCO2 POC ABG pO2 Sodium Potassium Chloride Carbon Dioxide BUN Creatinine Glucose POC Glucose 247 H Lactic Acid 3.20 H* 3.30 H* Calcium Phosphorus Total Bilirubin AST ALT Total Creatine Kinase CK-MB (CK-2) Troponin T Total Protein Albumin HDL Cholesterol Salicylates Acetaminophen 10/11/18 10/11/18 10/11/18 07:00 07:30 07:36 WBC Hgb Hct MCV RDW Plt Count [place] % (Auto) [place] # Seg Neutrophils % Seg Neuts % (Manual) Lymphocytes % (Manual) Monocytes % (Manual) Seg Neutrophils # Seg Neutrophils # Man Lymphocytes # (Manual) Monocytes # (Manual) APTT POC ABG pH POC ABG pCO2 POC ABG pO2 Sodium 146 H Potassium Chloride 112.1 H Carbon Dioxide 21 L BUN Creatinine 1.6 H Glucose 218 H POC Glucose Lactic Acid 3.20 H* Calcium 7.0 L Phosphorus Total Bilirubin AST ALT Total Creatine Kinase CK-MB (CK-2) Troponin T 1.020 H* Total Protein Albumin HDL Cholesterol Salicylates Acetaminophen 10/11/18 10/11/18 10/11/18 07:43 08:29 08:29 WBC Hgb 16.2 H Hct 49.9 H D MCV RDW Plt Count [place] % (Auto) [place] # Seg Neutrophils % Seg Neuts % (Manual) Lymphocytes % (Manual) Monocytes % (Manual) Seg Neutrophils # Seg Neutrophils # Man Lymphocytes # (Manual) Monocytes # (Manual) APTT POC ABG pH POC ABG pCO2 POC ABG pO2 Sodium Potassium Chloride Carbon Dioxide BUN Creatinine Glucose POC Glucose 174 H Lactic Acid 3.90 H* Calcium Phosphorus Total Bilirubin AST ALT Total Creatine Kinase CK-MB (CK-2) Troponin T Total Protein Albumin HDL Cholesterol Salicylates Acetaminophen 10/11/18 10/11/18 10/11/18 08:29 08:42 11:05 WBC Hgb Hct MCV RDW Plt Count [place] % (Auto) [place] # Seg Neutrophils % Seg Neuts % (Manual) Lymphocytes % (Manual) Monocytes % (Manual) Seg Neutrophils # Seg Neutrophils # Man Lymphocytes # (Manual) Monocytes # (Manual) APTT 24.1 L POC ABG pH POC ABG pCO2 POC ABG pO2 Sodium 147 H Potassium Chloride 113.3 H Carbon Dioxide 21 L BUN Creatinine 1.7 H Glucose 119 H POC Glucose 164 H Lactic Acid Calcium 7.7 L Phosphorus Total Bilirubin AST ALT Total Creatine Kinase CK-MB (CK-2) Troponin T Total Protein Albumin HDL Cholesterol Salicylates Acetaminophen 10/11/18 10/11/18 10/11/18 11:05 11:06 12:30 WBC Hgb Hct MCV RDW Plt Count [place] % (Auto) [place] # Seg Neutrophils % Seg Neuts % (Manual) Lymphocytes % (Manual) Monocytes % (Manual) Seg Neutrophils # Seg Neutrophils # Man Lymphocytes # (Manual) Monocytes # (Manual) APTT POC ABG pH POC ABG pCO2 POC ABG pO2 Sodium 148 H Potassium Chloride 113.4 H Carbon Dioxide 21 L BUN Creatinine 1.6 H Glucose 119 H POC Glucose 116 H Lactic Acid 3.20 H* Calcium 7.5 L Phosphorus Total Bilirubin AST ALT Total Creatine Kinase CK-MB (CK-2) Troponin T Total Protein Albumin HDL Cholesterol Salicylates Acetaminophen 10/11/18 10/11/18 10/11/18 12:30 13:16 13:25 WBC Hgb Hct MCV RDW Plt Count [place] % (Auto) [place] # Seg Neutrophils % Seg Neuts % (Manual) Lymphocytes % (Manual) Monocytes % (Manual) Seg Neutrophils # Seg Neutrophils # Man Lymphocytes # (Manual) Monocytes # (Manual) APTT POC ABG pH 7.247 L POC ABG pCO2 48.4 H POC ABG pO2 Sodium Potassium Chloride Carbon Dioxide BUN Creatinine Glucose POC Glucose 112 H Lactic Acid 2.70 H* Calcium Phosphorus Total Bilirubin AST ALT Total Creatine Kinase CK-MB (CK-2) Troponin T Total Protein Albumin HDL Cholesterol Salicylates Acetaminophen 10/11/18 10/11/18 10/11/18 14:41 15:27 16:13 WBC Hgb Hct MCV RDW Plt Count [place] % (Auto) [place] # Seg Neutrophils % Seg Neuts % (Manual) Lymphocytes % (Manual) Monocytes % (Manual) Seg Neutrophils # Seg Neutrophils # Man Lymphocytes # (Manual) Monocytes # (Manual) APTT POC ABG pH POC ABG pCO2 POC ABG pO2 Sodium Potassium Chloride Carbon Dioxide BUN Creatinine Glucose POC Glucose 127 H 141 H 134 H Lactic Acid Calcium Phosphorus Total Bilirubin AST ALT Total Creatine Kinase CK-MB (CK-2) Troponin T Total Protein Albumin HDL Cholesterol Salicylates Acetaminophen 10/11/18 10/11/18 10/11/18 17:18 18:23 19:38 WBC Hgb Hct MCV RDW Plt Count [place] % (Auto) [place] # Seg Neutrophils % Seg Neuts % (Manual) Lymphocytes % (Manual) Monocytes % (Manual) Seg Neutrophils # Seg Neutrophils # Man Lymphocytes # (Manual) Monocytes # (Manual) APTT POC ABG pH POC ABG pCO2 POC ABG pO2 Sodium 148 H Potassium Chloride 112.7 H Carbon Dioxide BUN 23 H Creatinine Glucose 143 H POC Glucose 132 H 129 H Lactic Acid Calcium 7.9 L Phosphorus Total Bilirubin AST ALT Total Creatine Kinase CK-MB (CK-2) Troponin T Total Protein Albumin HDL Cholesterol Salicylates Acetaminophen 10/11/18 10/11/18 10/11/18 20:19 20:36 21:01 WBC Hgb Hct MCV RDW Plt Count [place] % (Auto) [place] # Seg Neutrophils % Seg Neuts % (Manual) Lymphocytes % (Manual) Monocytes % (Manual) Seg Neutrophils # Seg Neutrophils # Man Lymphocytes # (Manual) Monocytes # (Manual) APTT POC ABG pH 7.281 L POC ABG pCO2 POC ABG pO2 Sodium Potassium Chloride Carbon Dioxide BUN Creatinine Glucose POC Glucose 129 H 151 H Lactic Acid Calcium Phosphorus Total Bilirubin AST ALT Total Creatine Kinase CK-MB (CK-2) Troponin T Total Protein Albumin HDL Cholesterol Salicylates Acetaminophen 10/11/18 10/11/18 10/12/18 22:04 23:15 01:18 WBC Hgb Hct MCV RDW Plt Count [place] % (Auto) [place] # Seg Neutrophils % Seg Neuts % (Manual) Lymphocytes % (Manual) Monocytes % (Manual) Seg Neutrophils # Seg Neutrophils # Man Lymphocytes # (Manual) Monocytes # (Manual) APTT POC ABG pH POC ABG pCO2 POC ABG pO2 Sodium Potassium Chloride Carbon Dioxide BUN Creatinine Glucose POC Glucose 147 H 143 H 158 H Lactic Acid Calcium Phosphorus Total Bilirubin AST ALT Total Creatine Kinase CK-MB (CK-2) Troponin T Total Protein Albumin HDL Cholesterol Salicylates Acetaminophen 10/12/18 10/12/18 10/12/18 02:13 03:18 04:04 WBC Hgb Hct MCV RDW Plt Count [place] % (Auto) [place] # Seg Neutrophils % Seg Neuts % (Manual) Lymphocytes % (Manual) Monocytes % (Manual) Seg Neutrophils # Seg Neutrophils # Man Lymphocytes # (Manual) Monocytes # (Manual) APTT POC ABG pH POC ABG pCO2 POC ABG pO2 Sodium 147 H Potassium Chloride 111.1 H Carbon Dioxide BUN 30 H Creatinine 2.0 H Glucose 154 H POC Glucose 148 H 142 H Lactic Acid Calcium 8.1 L Phosphorus Total Bilirubin AST 269 H ALT 204 H Total Creatine Kinase 3647 H CK-MB (CK-2) 48.3 H Troponin T 2.230 H* D Total Protein 5.8 L Albumin 2.6 L HDL Cholesterol Salicylates Acetaminophen 10/12/18 10/12/18 10/12/18 04:04 04:08 04:19 WBC 24.4 H Hgb Hct MCV RDW Plt Count [place] % (Auto) [place] # Seg Neutrophils % Seg Neuts % (Manual) 32.0 L Lymphocytes % (Manual) Monocytes % (Manual) 8.0 H Seg Neutrophils # Seg Neutrophils # Man 7.8 H Lymphocytes # (Manual) Monocytes # (Manual) 2.0 H APTT POC ABG pH 7.317 L POC ABG pCO2 49.3 H POC ABG pO2 Sodium Potassium Chloride Carbon Dioxide BUN Creatinine Glucose POC Glucose 143 H Lactic Acid Calcium Phosphorus Total Bilirubin AST ALT Total Creatine Kinase CK-MB (CK-2) Troponin T Total Protein Albumin HDL Cholesterol Salicylates Acetaminophen 10/12/18 10/12/18 10/12/18 05:29 06:52 08:09 WBC Hgb Hct MCV RDW Plt Count [place] % (Auto) [place] # Seg Neutrophils % Seg Neuts % (Manual) Lymphocytes % (Manual) Monocytes % (Manual) Seg Neutrophils # Seg Neutrophils # Man Lymphocytes # (Manual) Monocytes # (Manual) APTT POC ABG pH 7.322 L POC ABG pCO2 46.5 H POC ABG pO2 Sodium Potassium Chloride Carbon Dioxide BUN Creatinine Glucose POC Glucose 196 H 226 H Lactic Acid Calcium Phosphorus Total Bilirubin AST ALT Total Creatine Kinase CK-MB (CK-2) Troponin T Total Protein Albumin HDL Cholesterol Salicylates Acetaminophen 10/12/18 10/12/18 10/12/18 08:38 10:03 15:50 WBC Hgb Hct MCV RDW Plt Count [place] % (Auto) [place] # Seg Neutrophils % Seg Neuts % (Manual) Lymphocytes % (Manual) Monocytes % (Manual) Seg Neutrophils # Seg Neutrophils # Man Lymphocytes # (Manual) Monocytes # (Manual) APTT POC ABG pH POC ABG pCO2 POC ABG pO2 Sodium Potassium Chloride Carbon Dioxide BUN Creatinine Glucose POC Glucose 138 H 148 H 221 H Lactic Acid Calcium Phosphorus Total Bilirubin AST ALT Total Creatine Kinase CK-MB (CK-2) Troponin T Total Protein Albumin HDL Cholesterol Salicylates Acetaminophen 10/12/18 10/12/18 10/12/18 18:39 20:56 21:34 WBC Hgb Hct MCV RDW Plt Count [place] % (Auto) [place] # Seg Neutrophils % Seg Neuts % (Manual) Lymphocytes % (Manual) Monocytes % (Manual) Seg Neutrophils # Seg Neutrophils # Man Lymphocytes # (Manual) Monocytes # (Manual) APTT POC ABG pH 7.336 L POC ABG pCO2 46.0 H POC ABG pO2 Sodium Potassium Chloride Carbon Dioxide BUN Creatinine Glucose POC Glucose 255 H 260 H Lactic Acid Calcium Phosphorus Total Bilirubin AST ALT Total Creatine Kinase CK-MB (CK-2) Troponin T Total Protein Albumin HDL Cholesterol Salicylates Acetaminophen 10/13/18 10/13/18 10/13/18 02:29 05:09 05:40 WBC 17.0 H Hgb Hct MCV RDW Plt Count [place] % (Auto) 9.2 H [place] # 1.6 H Seg Neutrophils % 76.2 H Seg Neuts % (Manual) Lymphocytes % (Manual) Monocytes % (Manual) Seg Neutrophils # 12.9 H Seg Neutrophils # Man Lymphocytes # (Manual) Monocytes # (Manual) APTT POC ABG pH POC ABG pCO2 POC ABG pO2 Sodium Potassium Chloride Carbon Dioxide BUN Creatinine Glucose POC Glucose 216 H 249 H Lactic Acid Calcium Phosphorus Total Bilirubin AST ALT Total Creatine Kinase CK-MB (CK-2) Troponin T Total Protein Albumin HDL Cholesterol Salicylates Acetaminophen 10/13/18 10/13/18 10/13/18 05:40 05:40 09:46 WBC Hgb Hct MCV RDW Plt Count [place] % (Auto) [place] # Seg Neutrophils % Seg Neuts % (Manual) Lymphocytes % (Manual) Monocytes % (Manual) Seg Neutrophils # Seg Neutrophils # Man Lymphocytes # (Manual) Monocytes # (Manual) APTT POC ABG pH POC ABG pCO2 POC ABG pO2 Sodium 146 H Potassium Chloride 109.8 H Carbon Dioxide BUN 35 H Creatinine Glucose 245 H POC Glucose 235 H Lactic Acid Calcium 7.9 L Phosphorus Total Bilirubin AST ALT Total Creatine Kinase CK-MB (CK-2) Troponin T 0.952 H* D Total Protein Albumin HDL Cholesterol Salicylates Acetaminophen 10/13/18 10/13/18 10/13/18 13:58 16:15 17:30 WBC Hgb Hct MCV RDW Plt Count [place] % (Auto) [place] # Seg Neutrophils % Seg Neuts % (Manual) Lymphocytes % (Manual) Monocytes % (Manual) Seg Neutrophils # Seg Neutrophils # Man Lymphocytes # (Manual) Monocytes # (Manual) APTT POC ABG pH POC ABG pCO2 51.2 H POC ABG pO2 Sodium Potassium Chloride Carbon Dioxide BUN Creatinine Glucose POC Glucose 139 H Lactic Acid Calcium Phosphorus Total Bilirubin AST ALT Total Creatine Kinase CK-MB (CK-2) Troponin T 0.816 H* Total Protein Albumin HDL Cholesterol Salicylates Acetaminophen 10/13/18 10/14/18 10/14/18 21:25 01:49 04:52 WBC Hgb Hct MCV RDW Plt Count [place] % (Auto) [place] # Seg Neutrophils % Seg Neuts % (Manual) Lymphocytes % (Manual) Monocytes % (Manual) Seg Neutrophils # Seg Neutrophils # Man Lymphocytes # (Manual) Monocytes # (Manual) APTT POC ABG pH POC ABG pCO2 56.0 H POC ABG pO2 Sodium Potassium Chloride Carbon Dioxide BUN Creatinine Glucose POC Glucose 205 H 166 H Lactic Acid Calcium Phosphorus Total Bilirubin AST ALT Total Creatine Kinase CK-MB (CK-2) Troponin T Total Protein Albumin HDL Cholesterol Salicylates Acetaminophen 10/14/18 10/14/18 10/14/18 05:32 09:45 09:45 WBC Hgb 11.4 L Hct 34.5 L MCV RDW Plt Count 139 L [place] % (Auto) [place] # Seg Neutrophils % Seg Neuts % (Manual) Lymphocytes % (Manual) Monocytes % (Manual) Seg Neutrophils # Seg Neutrophils # Man Lymphocytes # (Manual) Monocytes # (Manual) APTT POC ABG pH POC ABG pCO2 POC ABG pO2 Sodium 148 H Potassium Chloride 107.3 H Carbon Dioxide 34 H D BUN Creatinine 0.7 L D Glucose 191 H POC Glucose 164 H Lactic Acid Calcium 7.3 L Phosphorus Total Bilirubin AST 110 H ALT 91 H Total Creatine Kinase CK-MB (CK-2) Troponin T Total Protein 4.9 L Albumin 2.0 L HDL Cholesterol Salicylates Acetaminophen 10/14/18 10/14/18 10/14/18 10:54 12:20 18:30 WBC Hgb Hct MCV RDW Plt Count [place] % (Auto) [place] # Seg Neutrophils % Seg Neuts % (Manual) Lymphocytes % (Manual) Monocytes % (Manual) Seg Neutrophils # Seg Neutrophils # Man Lymphocytes # (Manual) Monocytes # (Manual) APTT POC ABG pH POC ABG pCO2 POC ABG pO2 Sodium Potassium Chloride Carbon Dioxide BUN Creatinine Glucose POC Glucose 173 H 158 H 108 H Lactic Acid Calcium Phosphorus Total Bilirubin AST ALT Total Creatine Kinase CK-MB (CK-2) Troponin T Total Protein Albumin HDL Cholesterol Salicylates Acetaminophen 10/14/18 10/15/18 10/15/18 21:54 02:12 04:19 WBC Hgb Hct MCV RDW Plt Count [place] % (Auto) [place] # Seg Neutrophils % Seg Neuts % (Manual) Lymphocytes % (Manual) Monocytes % (Manual) Seg Neutrophils # Seg Neutrophils # Man Lymphocytes # (Manual) Monocytes # (Manual) APTT POC ABG pH 7.491 H POC ABG pCO2 45.1 H POC ABG pO2 Sodium Potassium Chloride Carbon Dioxide BUN Creatinine Glucose POC Glucose 110 H 164 H Lactic Acid Calcium Phosphorus Total Bilirubin AST ALT Total Creatine Kinase CK-MB (CK-2) Troponin T Total Protein Albumin HDL Cholesterol Salicylates Acetaminophen 10/15/18 10/15/18 10/15/18 04:55 05:43 06:20 WBC Hgb 11.7 L Hct 34.7 L MCV RDW Plt Count [place] % (Auto) [place] # Seg Neutrophils % Seg Neuts % (Manual) Lymphocytes % (Manual) Monocytes % (Manual) Seg Neutrophils # Seg Neutrophils # Man Lymphocytes # (Manual) Monocytes # (Manual) APTT POC ABG pH POC ABG pCO2 47.3 H POC ABG pO2 78 L Sodium Potassium Chloride Carbon Dioxide BUN Creatinine Glucose POC Glucose 250 H Lactic Acid Calcium Phosphorus Total Bilirubin AST ALT Total Creatine Kinase CK-MB (CK-2) Troponin T Total Protein Albumin HDL Cholesterol Salicylates Acetaminophen 10/15/18 10/15/18 10/15/18 12:00 12:00 12:11 WBC Hgb 11.5 L Hct 34.0 L MCV RDW Plt Count [place] % (Auto) [place] # Seg Neutrophils % Seg Neuts % (Manual) Lymphocytes % (Manual) Monocytes % (Manual) Seg Neutrophils # Seg Neutrophils # Man Lymphocytes # (Manual) Monocytes # (Manual) APTT POC ABG pH POC ABG pCO2 POC ABG pO2 Sodium 147 H Potassium Chloride 108.5 H Carbon Dioxide BUN Creatinine 0.7 L Glucose 209 H POC Glucose 197 H Lactic Acid Calcium 7.3 L Phosphorus Total Bilirubin AST ALT Total Creatine Kinase CK-MB (CK-2) Troponin T Total Protein Albumin HDL Cholesterol Salicylates Acetaminophen 10/15/18 10/15/18 10/15/18 15:48 18:34 21:29 WBC Hgb Hct MCV RDW Plt Count [place] % (Auto) [place] # Seg Neutrophils % Seg Neuts % (Manual) Lymphocytes % (Manual) Monocytes % (Manual) Seg Neutrophils # Seg Neutrophils # Man Lymphocytes # (Manual) Monocytes # (Manual) APTT POC ABG pH POC ABG pCO2 POC ABG pO2 Sodium Potassium Chloride Carbon Dioxide BUN Creatinine Glucose POC Glucose 220 H 249 H 209 H Lactic Acid Calcium Phosphorus Total Bilirubin AST ALT Total Creatine Kinase CK-MB (CK-2) Troponin T Total Protein Albumin HDL Cholesterol Salicylates Acetaminophen 10/16/18 10/16/18 10/16/18 02:16 03:50 05:57 WBC Hgb Hct MCV RDW Plt Count [place] % (Auto) [place] # Seg Neutrophils % Seg Neuts % (Manual) Lymphocytes % (Manual) Monocytes % (Manual) Seg Neutrophils # Seg Neutrophils # Man Lymphocytes # (Manual) Monocytes # (Manual) APTT POC ABG pH POC ABG pCO2 55.8 H POC ABG pO2 Sodium Potassium Chloride Carbon Dioxide BUN Creatinine Glucose POC Glucose 110 H 209 H Lactic Acid Calcium Phosphorus Total Bilirubin AST ALT Total Creatine Kinase CK-MB (CK-2) Troponin T Total Protein Albumin HDL Cholesterol Salicylates Acetaminophen 10/16/18 10/16/18 10/16/18 10:51 12:51 15:01 WBC Hgb Hct MCV RDW Plt Count [place] % (Auto) [place] # Seg Neutrophils % Seg Neuts % (Manual) Lymphocytes % (Manual) Monocytes % (Manual) Seg Neutrophils # Seg Neutrophils # Man Lymphocytes # (Manual) Monocytes # (Manual) APTT POC ABG pH POC ABG pCO2 48.9 H POC ABG pO2 Sodium Potassium Chloride Carbon Dioxide BUN Creatinine Glucose POC Glucose 198 H 196 H Lactic Acid Calcium Phosphorus Total Bilirubin AST ALT Total Creatine Kinase CK-MB (CK-2) Troponin T Total Protein Albumin HDL Cholesterol Salicylates Acetaminophen 10/16/18 10/16/18 10/17/18 17:34 21:59 02:17 WBC Hgb Hct MCV RDW Plt Count [place] % (Auto) [place] # Seg Neutrophils % Seg Neuts % (Manual) Lymphocytes % (Manual) Monocytes % (Manual) Seg Neutrophils # Seg Neutrophils # Man Lymphocytes # (Manual) Monocytes # (Manual) APTT POC ABG pH POC ABG pCO2 POC ABG pO2 Sodium Potassium Chloride Carbon Dioxide BUN Creatinine Glucose POC Glucose 179 H 139 H 135 H Lactic Acid Calcium Phosphorus Total Bilirubin AST ALT Total Creatine Kinase CK-MB (CK-2) Troponin T Total Protein Albumin HDL Cholesterol Salicylates Acetaminophen 10/17/18 10/17/18 10/17/18 05:40 05:47 10:18 WBC Hgb 11.3 L Hct 33.2 L MCV RDW Plt Count [place] % (Auto) [place] # Seg Neutrophils % Seg Neuts % (Manual) Lymphocytes % (Manual) Monocytes % (Manual) Seg Neutrophils # Seg Neutrophils # Man Lymphocytes # (Manual) Monocytes # (Manual) APTT POC ABG pH POC ABG pCO2 POC ABG pO2 Sodium Potassium Chloride Carbon Dioxide BUN Creatinine Glucose POC Glucose 125 H 139 H Lactic Acid Calcium Phosphorus Total Bilirubin AST ALT Total Creatine Kinase CK-MB (CK-2) Troponin T Total Protein Albumin HDL Cholesterol Salicylates Acetaminophen
[2018-10-17 15:58] LABS: Heparin-Induced Platelet Antib Negative (Negative); Unfractionated Heparin Negative (Negative)
--- NOTE | 2018-10-17 16:03 | XRay Report ---
PROCEDURE: XR ABDOMEN 1V AP TECHNIQUE: Single frontal view of the abdomen HISTORY: dobhoff placement COMPARISONS: Radiographs of the abdomen performed on 10/14/2018 FINDINGS: Weighted enteric tube with tip in the stomach. Mildly gas distended loops of bowel throughout the abdomen without evidence of obstruction. No free a ir. No acute bony or soft tissue abnormality. IMPRESSION: Weighted enteric tube with tip in the stomach. This document is electronically signed by Cassidy Hankins MD., Oct 17 2018 04:01:40 PM ET
[2018-10-17] MEDS ORDERED: D5W 1,000 ML IV SCH (22:00)
[2018-10-18] MEDS: LOPRESSOR IV SCH ×5 (01:30→20:49)
[2018-10-18] MEDS: UNASYN/NS 3 GM/100 ML 3 GM/100 ML BAG IV SCH ×5 (01:31→18:00)
[2018-10-18] MEDS: DUONEB *Not for PRN Use IH SCH ×4 (02:55→20:31)
[2018-10-18] MEDS: MORPHINE IV PRN ×3 (04:59→21:08)
[2018-10-18] MEDS: HumuLIN R SUB-Q SCH ×5 (07:30→21:08)
--- NOTE | 2018-10-18 09:26 | Progress Note ---
Assessment and Plan Acute hypoxemic respiratory failure,s/p mechanical ventilator support--extubated. 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 Witnessed seizure en route. Acute kidney injury. Leukocytosis. Hypercapnia. Hyperkalemia. Metabolic acidosis. Lactic acidosis. Non-ST elevation myocardial infarction. Elevated serum transaminases. - continue bronchodilators with pulmonary hygiene per RT - continue VTE prophylaxis - continue to wean supplemental oxygen to keep O2 sats 88-90% - PRN ABGs/CXR - Continue cardioprotective measures -Continue with secondary stroke prophylaxis - Replete electrolytes as indicated - Follow cultures and adjust antibiotics for ID/CALEB (Deescalate as indicated) - Avoid nephrotoxic agents, adjust all medications for CrCL - Aspiration precautions -PT/OT - Accuchecks with glycemic control. Target glucose of 140-180 mg/dL - Influenza and pneumonia vaccination per protocol Subjective Date of service: 10/18/18 Principal diagnosis: Ac hypercapnic hypoxemic Resp failure; Drug OD; AE-COPD; NINOSKA; Seizures Interval history: Patient is seen today for: Acute hypoxemic respiratory failure, s/p mechanical ventilator support; Drug overdose; Acute chronic obstructive pulmonary disease exacerbation; Witnessed seizure en route; Acute kidney injury; Leukocytosis; Hypercapnia. Seen and examined at bedside; 24-hour events reviewed; nursing and respiratory care staff consulted; no adverse overnight events reported to me; doing well pos t extubation ; No N/V/F/C; hemiparesis is persistent, but improving on the left side; no gross bleeding; failed bedside dysphagia screen; s/p QUIQUE Asking for water, not requiring supplemental oxygen therapy Objective Vital Signs - 12hr 10/17/18 10/18/18 10/18/18 22:55 02:57 03:12 Temperature 97.4 F L Pulse Rate 104 H Pulse Rate [ 103 H 105 H Bilateral] Respiratory 22 Rate Respiratory 20 20 Rate [Bilateral ] Blood Pressure 119/74 O2 Sat by Pulse 91 Oximetry 10/18/18 10/18/18 04:40 08:23 Temperature 98.3 F 97.9 F Pulse Rate 100 H 101 H Pulse Rate [ Bilateral] Respiratory 20 20 Rate Respiratory Rate [Bilateral ] Blood Pressure 124/66 124/66 O2 Sat by Pulse 93 95 Oximetry Constitutional: no acute distress, other (middle aged but chronically ill looking CM; Atraumatic) Eyes: non-icteric ENT: oropharynx moist Neck: supple, no lymphadenopathy, no JVD Effort: normal Ascultation: Bilateral: diminished breath sounds, rhonchi Percussion: Bilateral: not dull Cardiovascular: irregular rhythm, other (No R/M) Gastrointestinal: normoactive bowel sounds, soft, non-tender, non-distended Integumentary: other (poor turgor) Extremities: no edema, no ischemia or petechiae Neurologic: pupils equal and round, other (Left hemiparesis, improving) Psychiatric: mood appropriate, affect normal CBC and BMP: 10/17/18 05:40 10/15/18 12:00 ABG, PT/INR, D-dimer: ABG POC ABG pH 7.393 (7.35-7.45) 10/16/18 12:51 POC ABG pCO2 48.9 (35-45) H 10/16/18 12:51 POC ABG pO2 92 (80-105) 10/16/18 12:51 POC ABG HCO3 29.8 (22-26 mml/L) 10/16/18 12:51 POC ABG Total CO2 31 (23-27mmol/L) 10/16/18 12:51 POC ABG O2 Sat 97 10/16/18 12:51 PT/INR, D-dimer PT 14.7 Sec. (12.2-14.9) 10/11/18 08:29 INR 1.08 (0.87-1.13) 10/11/18 08:29 Abnormal lab findings: Abnormal Labs 10/11/18 10/11/18 10/11/18 00:16 00:16 00:16 WBC 20.1 H Hgb Hct MCV 98 H RDW 15.4 H Plt Count [place] % (Auto) [place] # Seg Neutrophils % Seg Neuts % (Manual) Lymphocytes % (Manual) 5.0 L Monocytes % (Manual) 25.0 H Seg Neutrophils # Seg Neutrophils # Man 9.2 H Lymphocytes # (Manual) 1.0 L Monocytes # (Manual) 5.0 H APTT POC ABG pH POC ABG pCO2 POC ABG pO2 Sodium Potassium 5.8 H Chloride Carbon Dioxide 17 L BUN Creatinine 2.2 H Glucose 348 H POC Glucose Lactic Acid 13.70 H* Calcium 7.7 L Phosphorus Total Bilirubin 1.50 H AST 179 H ALT 110 H Total Creatine Kinase 324 H CK-MB (CK-2) Troponin T 0.257 H* Total Protein 5.9 L Albumin 2.9 L HDL Cholesterol 19 L Salicylates Acetaminophen 10/11/18 10/11/18 10/11/18 00:16 00:16 01:21 WBC Hgb Hct MCV RDW Plt Count [place] % (Auto) [place] # Seg Neutrophils % Seg Neuts % (Manual) Lymphocytes % (Manual) Monocytes % (Manual) Seg Neutrophils # Seg Neutrophils # Man Lymphocytes # (Manual) Monocytes # (Manual) APTT POC ABG pH 7.110 L POC ABG pCO2 50.3 H POC ABG pO2 65 L Sodium Potassium Chloride Carbon Dioxide BUN Creatinine Glucose POC Glucose Lactic Acid Calcium Phosphorus Total Bilirubin AST ALT Total Creatine Kinase CK-MB (CK-2) Troponin T Total Protein Albumin HDL Cholesterol Salicylates < 0.3 L Acetaminophen < 5.0 L 10/11/18 10/11/18 10/11/18 01:22 03:27 04:14 WBC Hgb Hct MCV RDW Plt Count [place] % (Auto) [place] # Seg Neutrophils % Seg Neuts % (Manual) Lymphocytes % (Manual) Monocytes % (Manual) Seg Neutrophils # Seg Neutrophils # Man Lymphocytes # (Manual) Monocytes # (Manual) APTT POC ABG pH POC ABG pCO2 POC ABG pO2 Sodium Potassium Chloride Carbon Dioxide BUN Creatinine Glucose POC Glucose Lactic Acid 8.50 H* 4.10 H* Calcium Phosphorus 4.90 H Total Bilirubin AST ALT Total Creatine Kinase CK-MB (CK-2) Troponin T Total Protein Albumin HDL Cholesterol Salicylates Acetaminophen 10/11/18 10/11/18 10/11/18 04:14 04:14 04:14 WBC Hgb Hct MCV RDW Plt Count [place] % (Auto) [place] # Seg Neutrophils % Seg Neuts % (Manual) Lymphocytes % (Manual) Monocytes % (Manual) Seg Neutrophils # Seg Neutrophils # Man Lymphocytes # (Manual) Monocytes # (Manual) APTT POC ABG pH POC ABG pCO2 POC ABG pO2 Sodium Potassium 5.6 H Chloride Carbon Dioxide 19 L BUN Creatinine 1.6 H Glucose 329 H POC Glucose 328 H Lactic Acid Calcium 7.3 L Phosphorus Total Bilirubin AST ALT Total Creatine Kinase CK-MB (CK-2) Troponin T 1.130 H* D Total Protein Albumin HDL Cholesterol Salicylates Acetaminophen 10/11/18 10/11/18 10/11/18 05:10 05:32 05:58 WBC Hgb Hct MCV RDW Plt Count [place] % (Auto) [place] # Seg Neutrophils % Seg Neuts % (Manual) Lymphocytes % (Manual) Monocytes % (Manual) Seg Neutrophils # Seg Neutrophils # Man Lymphocytes # (Manual) Monocytes # (Manual) APTT POC ABG pH 7.259 L POC ABG pCO2 45.6 H POC ABG pO2 Sodium Potassium Chloride 108.6 H Carbon Dioxide 20 L BUN Creatinine 1.8 H Glucose 269 H POC Glucose 273 H Lactic Acid Calcium 7.0 L Phosphorus Total Bilirubin AST ALT Total Creatine Kinase CK-MB (CK-2) Troponin T Total Protein Albumin HDL Cholesterol Salicylates Acetaminophen 10/11/18 10/11/18 10/11/18 05:58 06:39 07:00 WBC Hgb Hct MCV RDW Plt Count [place] % (Auto) [place] # Seg Neutrophils % Seg Neuts % (Manual) Lymphocytes % (Manual) Monocytes % (Manual) Seg Neutrophils # Seg Neutrophils # Man Lymphocytes # (Manual) Monocytes # (Manual) APTT POC ABG pH POC ABG pCO2 POC ABG pO2 Sodium Potassium Chloride Carbon Dioxide BUN Creatinine Glucose POC Glucose 247 H Lactic Acid 3.20 H* 3.30 H* Calcium Phosphorus Total Bilirubin AST ALT Total Creatine Kinase CK-MB (CK-2) Troponin T Total Protein Albumin HDL Cholesterol Salicylates Acetaminophen 10/11/18 10/11/18 10/11/18 07:00 07:30 07:36 WBC Hgb Hct MCV RDW Plt Count [place] % (Auto) [place] # Seg Neutrophils % Seg Neuts % (Manual) Lymphocytes % (Manual) Monocytes % (Manual) Seg Neutrophils # Seg Neutrophils # Man Lymphocytes # (Manual) Monocytes # (Manual) APTT POC ABG pH POC ABG pCO2 POC ABG pO2 Sodium 146 H Potassium Chloride 112.1 H Carbon Dioxide 21 L BUN Creatinine 1.6 H Glucose 218 H POC Glucose Lactic Acid 3.20 H* Calcium 7.0 L Phosphorus Total Bilirubin AST ALT Total Creatine Kinase CK-MB (CK-2) Troponin T 1.020 H* Total Protein Albumin HDL Cholesterol Salicylates Acetaminophen 10/11/18 10/11/18 10/11/18 07:43 08:29 08:29 WBC Hgb 16.2 H Hct 49.9 H D MCV RDW Plt Count [place] % (Auto) [place] # Seg Neutrophils % Seg Neuts % (Manual) Lymphocytes % (Manual) Monocytes % (Manual) Seg Neutrophils # Seg Neutrophils # Man Lymphocytes # (Manual) Monocytes # (Manual) APTT POC ABG pH POC ABG pCO2 POC ABG pO2 Sodium Potassium Chloride Carbon Dioxide BUN Creatinine Glucose POC Glucose 174 H Lactic Acid 3.90 H* Calcium Phosphorus Total Bilirubin AST ALT Total Creatine Kinase CK-MB (CK-2) Troponin T Total Protein Albumin HDL Cholesterol Salicylates Acetaminophen 10/11/18 10/11/18 10/11/18 08:29 08:42 11:05 WBC Hgb Hct MCV RDW Plt Count [place] % (Auto) [place] # Seg Neutrophils % Seg Neuts % (Manual) Lymphocytes % (Manual) Monocytes % (Manual) Seg Neutrophils # Seg Neutrophils # Man Lymphocytes # (Manual) Monocytes # (Manual) APTT 24.1 L POC ABG pH POC ABG pCO2 POC ABG pO2 Sodium 147 H Potassium Chloride 113.3 H Carbon Dioxide 21 L BUN Creatinine 1.7 H Glucose 119 H POC Glucose 164 H Lactic Acid Calcium 7.7 L Phosphorus Total Bilirubin AST ALT Total Creatine Kinase CK-MB (CK-2) Troponin T Total Protein Albumin HDL Cholesterol Salicylates Acetaminophen 10/11/18 10/11/18 10/11/18 11:05 11:06 12:30 WBC Hgb Hct MCV RDW Plt Count [place] % (Auto) [place] # Seg Neutrophils % Seg Neuts % (Manual) Lymphocytes % (Manual) Monocytes % (Manual) Seg Neutrophils # Seg Neutrophils # Man Lymphocytes # (Manual) Monocytes # (Manual) APTT POC ABG pH POC ABG pCO2 POC ABG pO2 Sodium 148 H Potassium Chloride 113.4 H Carbon Dioxide 21 L BUN Creatinine 1.6 H Glucose 119 H POC Glucose 116 H Lactic Acid 3.20 H* Calcium 7.5 L Phosphorus Total Bilirubin AST ALT Total Creatine Kinase CK-MB (CK-2) Troponin T Total Protein Albumin HDL Cholesterol Salicylates Acetaminophen 10/11/18 10/11/18 10/11/18 12:30 13:16 13:25 WBC Hgb Hct MCV RDW Plt Count [place] % (Auto) [place] # Seg Neutrophils % Seg Neuts % (Manual) Lymphocytes % (Manual) Monocytes % (Manual) Seg Neutrophils # Seg Neutrophils # Man Lymphocytes # (Manual) Monocytes # (Manual) APTT POC ABG pH 7.247 L POC ABG pCO2 48.4 H POC ABG pO2 Sodium Potassium Chloride Carbon Dioxide BUN Creatinine Glucose POC Glucose 112 H Lactic Acid 2.70 H* Calcium Phosphorus Total Bilirubin AST ALT Total Creatine Kinase CK-MB (CK-2) Troponin T Total Protein Albumin HDL Cholesterol Salicylates Acetaminophen 10/11/18 10/11/18 10/11/18 14:41 15:27 16:13 WBC Hgb Hct MCV RDW Plt Count [place] % (Auto) [place] # Seg Neutrophils % Seg Neuts % (Manual) Lymphocytes % (Manual) Monocytes % (Manual) Seg Neutrophils # Seg Neutrophils # Man Lymphocytes # (Manual) Monocytes # (Manual) APTT POC ABG pH POC ABG pCO2 POC ABG pO2 Sodium Potassium Chloride Carbon Dioxide BUN Creatinine Glucose POC Glucose 127 H 141 H 134 H Lactic Acid Calcium Phosphorus Total Bilirubin AST ALT Total Creatine Kinase CK-MB (CK-2) Troponin T Total Protein Albumin HDL Cholesterol Salicylates Acetaminophen 10/11/18 10/11/18 10/11/18 17:18 18:23 19:38 WBC Hgb Hct MCV RDW Plt Count [place] % (Auto) [place] # Seg Neutrophils % Seg Neuts % (Manual) Lymphocytes % (Manual) Monocytes % (Manual) Seg Neutrophils # Seg Neutrophils # Man Lymphocytes # (Manual) Monocytes # (Manual) APTT POC ABG pH POC ABG pCO2 POC ABG pO2 Sodium 148 H Potassium Chloride 112.7 H Carbon Dioxide BUN 23 H Creatinine Glucose 143 H POC Glucose 132 H 129 H Lactic Acid Calcium 7.9 L Phosphorus Total Bilirubin AST ALT Total Creatine Kinase CK-MB (CK-2) Troponin T Total Protein Albumin HDL Cholesterol Salicylates Acetaminophen 10/11/18 10/11/18 10/11/18 20:19 20:36 21:01 WBC Hgb Hct MCV RDW Plt Count [place] % (Auto) [place] # Seg Neutrophils % Seg Neuts % (Manual) Lymphocytes % (Manual) Monocytes % (Manual) Seg Neutrophils # Seg Neutrophils # Man Lymphocytes # (Manual) Monocytes # (Manual) APTT POC ABG pH 7.281 L POC ABG pCO2 POC ABG pO2 Sodium Potassium Chloride Carbon Dioxide BUN Creatinine Glucose POC Glucose 129 H 151 H Lactic Acid Calcium Phosphorus Total Bilirubin AST ALT Total Creatine Kinase CK-MB (CK-2) Troponin T Total Protein Albumin HDL Cholesterol Salicylates Acetaminophen 10/11/18 10/11/18 10/12/18 22:04 23:15 01:18 WBC Hgb Hct MCV RDW Plt Count [place] % (Auto) [place] # Seg Neutrophils % Seg Neuts % (Manual) Lymphocytes % (Manual) Monocytes % (Manual) Seg Neutrophils # Seg Neutrophils # Man Lymphocytes # (Manual) Monocytes # (Manual) APTT POC ABG pH POC ABG pCO2 POC ABG pO2 Sodium Potassium Chloride Carbon Dioxide BUN Creatinine Glucose POC Glucose 147 H 143 H 158 H Lactic Acid Calcium Phosphorus Total Bilirubin AST ALT Total Creatine Kinase CK-MB (CK-2) Troponin T Total Protein Albumin HDL Cholesterol Salicylates Acetaminophen 10/12/18 10/12/18 10/12/18 02:13 03:18 04:04 WBC Hgb Hct MCV RDW Plt Count [place] % (Auto) [place] # Seg Neutrophils % Seg Neuts % (Manual) Lymphocytes % (Manual) Monocytes % (Manual) Seg Neutrophils # Seg Neutrophils # Man Lymphocytes # (Manual) Monocytes # (Manual) APTT POC ABG pH POC ABG pCO2 POC ABG pO2 Sodium 147 H Potassium Chloride 111.1 H Carbon Dioxide BUN 30 H Creatinine 2.0 H Glucose 154 H POC Glucose 148 H 142 H Lactic Acid Calcium 8.1 L Phosphorus Total Bilirubin AST 269 H ALT 204 H Total Creatine Kinase 3647 H CK-MB (CK-2) 48.3 H Troponin T 2.230 H* D Total Protein 5.8 L Albumin 2.6 L HDL Cholesterol Salicylates Acetaminophen 10/12/18 10/12/18 10/12/18 04:04 04:08 04:19 WBC 24.4 H Hgb Hct MCV RDW Plt Count [place] % (Auto) [place] # Seg Neutrophils % Seg Neuts % (Manual) 32.0 L Lymphocytes % (Manual) Monocytes % (Manual) 8.0 H Seg Neutrophils # Seg Neutrophils # Man 7.8 H Lymphocytes # (Manual) Monocytes # (Manual) 2.0 H APTT POC ABG pH 7.317 L POC ABG pCO2 49.3 H POC ABG pO2 Sodium Potassium Chloride Carbon Dioxide BUN Creatinine Glucose POC Glucose 143 H Lactic Acid Calcium Phosphorus Total Bilirubin AST ALT Total Creatine Kinase CK-MB (CK-2) Troponin T Total Protein Albumin HDL Cholesterol Salicylates Acetaminophen 10/12/18 10/12/18 10/12/18 05:29 06:52 08:09 WBC Hgb Hct MCV RDW Plt Count [place] % (Auto) [place] # Seg Neutrophils % Seg Neuts % (Manual) Lymphocytes % (Manual) Monocytes % (Manual) Seg Neutrophils # Seg Neutrophils # Man Lymphocytes # (Manual) Monocytes # (Manual) APTT POC ABG pH 7.322 L POC ABG pCO2 46.5 H POC ABG pO2 Sodium Potassium Chloride Carbon Dioxide BUN Creatinine Glucose POC Glucose 196 H 226 H Lactic Acid Calcium Phosphorus Total Bilirubin AST ALT Total Creatine Kinase CK-MB (CK-2) Troponin T Total Protein Albumin HDL Cholesterol Salicylates Acetaminophen 10/12/18 10/12/18 10/12/18 08:38 10:03 15:50 WBC Hgb Hct MCV RDW Plt Count [place] % (Auto) [place] # Seg Neutrophils % Seg Neuts % (Manual) Lymphocytes % (Manual) Monocytes % (Manual) Seg Neutrophils # Seg Neutrophils # Man Lymphocytes # (Manual) Monocytes # (Manual) APTT POC ABG pH POC ABG pCO2 POC ABG pO2 Sodium Potassium Chloride Carbon Dioxide BUN Creatinine Glucose POC Glucose 138 H 148 H 221 H Lactic Acid Calcium Phosphorus Total Bilirubin AST ALT Total Creatine Kinase CK-MB (CK-2) Troponin T Total Protein Albumin HDL Cholesterol Salicylates Acetaminophen 10/12/18 10/12/18 10/12/18 18:39 20:56 21:34 WBC Hgb Hct MCV RDW Plt Count [place] % (Auto) [place] # Seg Neutrophils % Seg Neuts % (Manual) Lymphocytes % (Manual) Monocytes % (Manual) Seg Neutrophils # Seg Neutrophils # Man Lymphocytes # (Manual) Monocytes # (Manual) APTT POC ABG pH 7.336 L POC ABG pCO2 46.0 H POC ABG pO2 Sodium Potassium Chloride Carbon Dioxide BUN Creatinine Glucose POC Glucose 255 H 260 H Lactic Acid Calcium Phosphorus Total Bilirubin AST ALT Total Creatine Kinase CK-MB (CK-2) Troponin T Total Protein Albumin HDL Cholesterol Salicylates Acetaminophen 10/13/18 10/13/18 10/13/18 02:29 05:09 05:40 WBC 17.0 H Hgb Hct MCV RDW Plt Count [place] % (Auto) 9.2 H [place] # 1.6 H Seg Neutrophils % 76.2 H Seg Neuts % (Manual) Lymphocytes % (Manual) Monocytes % (Manual) Seg Neutrophils # 12.9 H Seg Neutrophils # Man Lymphocytes # (Manual) Monocytes # (Manual) APTT POC ABG pH POC ABG pCO2 POC ABG pO2 Sodium Potassium Chloride Carbon Dioxide BUN Creatinine Glucose POC Glucose 216 H 249 H Lactic Acid Calcium Phosphorus Total Bilirubin AST ALT Total Creatine Kinase CK-MB (CK-2) Troponin T Total Protein Albumin HDL Cholesterol Salicylates Acetaminophen 10/13/18 10/13/18 10/13/18 05:40 05:40 09:46 WBC Hgb Hct MCV RDW Plt Count [place] % (Auto) [place] # Seg Neutrophils % Seg Neuts % (Manual) Lymphocytes % (Manual) Monocytes % (Manual) Seg Neutrophils # Seg Neutrophils # Man Lymphocytes # (Manual) Monocytes # (Manual) APTT POC ABG pH POC ABG pCO2 POC ABG pO2 Sodium 146 H Potassium Chloride 109.8 H Carbon Dioxide BUN 35 H Creatinine Glucose 245 H POC Glucose 235 H Lactic Acid Calcium 7.9 L Phosphorus Total Bilirubin AST ALT Total Creatine Kinase CK-MB (CK-2) Troponin T 0.952 H* D Total Protein Albumin HDL Cholesterol Salicylates Acetaminophen 10/13/18 10/13/18 10/13/18 13:58 16:15 17:30 WBC Hgb Hct MCV RDW Plt Count [place] % (Auto) [place] # Seg Neutrophils % Seg Neuts % (Manual) Lymphocytes % (Manual) Monocytes % (Manual) Seg Neutrophils # Seg Neutrophils # Man Lymphocytes # (Manual) Monocytes # (Manual) APTT POC ABG pH POC ABG pCO2 51.2 H POC ABG pO2 Sodium Potassium Chloride Carbon Dioxide BUN Creatinine Glucose POC Glucose 139 H Lactic Acid Calcium Phosphorus Total Bilirubin AST ALT Total Creatine Kinase CK-MB (CK-2) Troponin T 0.816 H* Total Protein Albumin HDL Cholesterol Salicylates Acetaminophen 10/13/18 10/14/18 10/14/18 21:25 01:49 04:52 WBC Hgb Hct MCV RDW Plt Count [place] % (Auto) [place] # Seg Neutrophils % Seg Neuts % (Manual) Lymphocytes % (Manual) Monocytes % (Manual) Seg Neutrophils # Seg Neutrophils # Man Lymphocytes # (Manual) Monocytes # (Manual) APTT POC ABG pH POC ABG pCO2 56.0 H POC ABG pO2 Sodium Potassium Chloride Carbon Dioxide BUN Creatinine Glucose POC Glucose 205 H 166 H Lactic Acid Calcium Phosphorus Total Bilirubin AST ALT Total Creatine Kinase CK-MB (CK-2) Troponin T Total Protein Albumin HDL Cholesterol Salicylates Acetaminophen 10/14/18 10/14/18 10/14/18 05:32 09:45 09:45 WBC Hgb 11.4 L Hct 34.5 L MCV RDW Plt Count 139 L [place] % (Auto) [place] # Seg Neutrophils % Seg Neuts % (Manual) Lymphocytes % (Manual) Monocytes % (Manual) Seg Neutrophils # Seg Neutrophils # Man Lymphocytes # (Manual) Monocytes # (Manual) APTT POC ABG pH POC ABG pCO2 POC ABG pO2 Sodium 148 H Potassium Chloride 107.3 H Carbon Dioxide 34 H D BUN Creatinine 0.7 L D Glucose 191 H POC Glucose 164 H Lactic Acid Calcium 7.3 L Phosphorus Total Bilirubin AST 110 H ALT 91 H Total Creatine Kinase CK-MB (CK-2) Troponin T Total Protein 4.9 L Albumin 2.0 L HDL Cholesterol Salicylates Acetaminophen 10/14/18 10/14/18 10/14/18 10:54 12:20 18:30 WBC Hgb Hct MCV RDW Plt Count [place] % (Auto) [place] # Seg Neutrophils % Seg Neuts % (Manual) Lymphocytes % (Manual) Monocytes % (Manual) Seg Neutrophils # Seg Neutrophils # Man Lymphocytes # (Manual) Monocytes # (Manual) APTT POC ABG pH POC ABG pCO2 POC ABG pO2 Sodium Potassium Chloride Carbon Dioxide BUN Creatinine Glucose POC Glucose 173 H 158 H 108 H Lactic Acid Calcium Phosphorus Total Bilirubin AST ALT Total Creatine Kinase CK-MB (CK-2) Troponin T Total Protein Albumin HDL Cholesterol Salicylates Acetaminophen 10/14/18 10/15/18 10/15/18 21:54 02:12 04:19 WBC Hgb Hct MCV RDW Plt Count [place] % (Auto) [place] # Seg Neutrophils % Seg Neuts % (Manual) Lymphocytes % (Manual) Monocytes % (Manual) Seg Neutrophils # Seg Neutrophils # Man Lymphocytes # (Manual) Monocytes # (Manual) APTT POC ABG pH 7.491 H POC ABG pCO2 45.1 H POC ABG pO2 Sodium Potassium Chloride Carbon Dioxide BUN Creatinine Glucose POC Glucose 110 H 164 H Lactic Acid Calcium Phosphorus Total Bilirubin AST ALT Total Creatine Kinase CK-MB (CK-2) Troponin T Total Protein Albumin HDL Cholesterol Salicylates Acetaminophen 10/15/18 10/15/18 10/15/18 04:55 05:43 06:20 WBC Hgb 11.7 L Hct 34.7 L MCV RDW Plt Count [place] % (Auto) [place] # Seg Neutrophils % Seg Neuts % (Manual) Lymphocytes % (Manual) Monocytes % (Manual) Seg Neutrophils # Seg Neutrophils # Man Lymphocytes # (Manual) Monocytes # (Manual) APTT POC ABG pH POC ABG pCO2 47.3 H POC ABG pO2 78 L Sodium Potassium Chloride Carbon Dioxide BUN Creatinine Glucose POC Glucose 250 H Lactic Acid Calcium Phosphorus Total Bilirubin AST ALT Total Creatine Kinase CK-MB (CK-2) Troponin T Total Protein Albumin HDL Cholesterol Salicylates Acetaminophen 10/15/18 10/15/18 10/15/18 12:00 12:00 12:11 WBC Hgb 11.5 L Hct 34.0 L MCV RDW Plt Count [place] % (Auto) [place] # Seg Neutrophils % Seg Neuts % (Manual) Lymphocytes % (Manual) Monocytes % (Manual) Seg Neutrophils # Seg Neutrophils # Man Lymphocytes # (Manual) Monocytes # (Manual) APTT POC ABG pH POC ABG pCO2 POC ABG pO2 Sodium 147 H Potassium Chloride 108.5 H Carbon Dioxide BUN Creatinine 0.7 L Glucose 209 H POC Glucose 197 H Lactic Acid Calcium 7.3 L Phosphorus Total Bilirubin AST ALT Total Creatine Kinase CK-MB (CK-2) Troponin T Total Protein Albumin HDL Cholesterol Salicylates Acetaminophen 10/15/18 10/15/18 10/15/18 15:48 18:34 21:29 WBC Hgb Hct MCV RDW Plt Count [place] % (Auto) [place] # Seg Neutrophils % Seg Neuts % (Manual) Lymphocytes % (Manual) Monocytes % (Manual) Seg Neutrophils # Seg Neutrophils # Man Lymphocytes # (Manual) Monocytes # (Manual) APTT POC ABG pH POC ABG pCO2 POC ABG pO2 Sodium Potassium Chloride Carbon Dioxide BUN Creatinine Glucose POC Glucose 220 H 249 H 209 H Lactic Acid Calcium Phosphorus Total Bilirubin AST ALT Total Creatine Kinase CK-MB (CK-2) Troponin T Total Protein Albumin HDL Cholesterol Salicylates Acetaminophen 10/16/18 10/16/18 10/16/18 02:16 03:50 05:57 WBC Hgb Hct MCV RDW Plt Count [place] % (Auto) [place] # Seg Neutrophils % Seg Neuts % (Manual) Lymphocytes % (Manual) Monocytes % (Manual) Seg Neutrophils # Seg Neutrophils # Man Lymphocytes # (Manual) Monocytes # (Manual) APTT POC ABG pH POC ABG pCO2 55.8 H POC ABG pO2 Sodium Potassium Chloride Carbon Dioxide BUN Creatinine Glucose POC Glucose 110 H 209 H Lactic Acid Calcium Phosphorus Total Bilirubin AST ALT Total Creatine Kinase CK-MB (CK-2) Troponin T Total Protein Albumin HDL Cholesterol Salicylates Acetaminophen 10/16/18 10/16/18 10/16/18 10:51 12:51 15:01 WBC Hgb Hct MCV RDW Plt Count [place] % (Auto) [place] # Seg Neutrophils % Seg Neuts % (Manual) Lymphocytes % (Manual) Monocytes % (Manual) Seg Neutrophils # Seg Neutrophils # Man Lymphocytes # (Manual) Monocytes # (Manual) APTT POC ABG pH POC ABG pCO2 48.9 H POC ABG pO2 Sodium Potassium Chloride Carbon Dioxide BUN Creatinine Glucose POC Glucose 198 H 196 H Lactic Acid Calcium Phosphorus Total Bilirubin AST ALT Total Creatine Kinase CK-MB (CK-2) Troponin T Total Protein Albumin HDL Cholesterol Salicylates Acetaminophen 10/16/18 10/16/18 10/17/18 17:34 21:59 02:17 WBC Hgb Hct MCV RDW Plt Count [place] % (Auto) [place] # Seg Neutrophils % Seg Neuts % (Manual) Lymphocytes % (Manual) Monocytes % (Manual) Seg Neutrophils # Seg Neutrophils # Man Lymphocytes # (Manual) Monocytes # (Manual) APTT POC ABG pH POC ABG pCO2 POC ABG pO2 Sodium Potassium Chloride Carbon Dioxide BUN Creatinine Glucose POC Glucose 179 H 139 H 135 H Lactic Acid Calcium Phosphorus Total Bilirubin AST ALT Total Creatine Kinase CK-MB (CK-2) Troponin T Total Protein Albumin HDL Cholesterol Salicylates Acetaminophen 10/17/18 10/17/18 10/17/18 05:40 05:47 10:18 WBC Hgb 11.3 L Hct 33.2 L MCV RDW Plt Count [place] % (Auto) [place] # Seg Neutrophils % Seg Neuts % (Manual) Lymphocytes % (Manual) Monocytes % (Manual) Seg Neutrophils # Seg Neutrophils # Man Lymphocytes # (Manual) Monocytes # (Manual) APTT POC ABG pH POC ABG pCO2 POC ABG pO2 Sodium Potassium Chloride Carbon Dioxide BUN Creatinine Glucose POC Glucose 125 H 139 H Lactic Acid Calcium Phosphorus Total Bilirubin AST ALT Total Creatine Kinase CK-MB (CK-2) Troponin T Total Protein Albumin HDL Cholesterol Salicylates Acetaminophen 10/17/18 10/18/18 23:11 08:49 WBC Hgb Hct MCV RDW Plt Count [place] % (Auto) [place] # Seg Neutrophils % Seg Neuts % (Manual) Lymphocytes % (Manual) Monocytes % (Manual) Seg Neutrophils # Seg Neutrophils # Man Lymphocytes # (Manual) Monocytes # (Manual) APTT POC ABG pH POC ABG pCO2 POC ABG pO2 Sodium Potassium Chloride Carbon Dioxide BUN Creatinine Glucose POC Glucose 165 H 125 H Lactic Acid Calcium Phosphorus Total Bilirubin AST ALT Total Creatine Kinase CK-MB (CK-2) Troponin T Total Protein Albumin HDL Cholesterol Salicylates Acetaminophen Allied health notes reviewed: nursing
[2018-10-18] MEDS: SODIUM CHLORIDE FLUSH SYRINGE 10 ML IV SCH ×2 (10:54→21:11)
[2018-10-18] MEDS: ASPIRIN PO SCH (10:54)
[2018-10-18] MEDS: PEPCID PO SCH ×2 (10:54→21:07)
[2018-10-18] MEDS: TYLENOL PO PRN (11:11)
--- NOTE | 2018-10-18 11:29 | Progress Note ---
Assessment and Plan Cultures: Blood culture 10/11/2018 no growth Sputum culture 10/12/2018 no growth Urine culture 10/11/2018 neg Assessment: 58 y/o male with history of hemorrhagic CVA in 03/2018, rheumatic fever as a child, asthma, HTN, DM, hepatitis, tobacco use, polysubstance abuse; admitted on 10/10/2018 due to altered mental status: 1) Acute encephalopathy: Improving. likely due to opioid overdose 2) Sepis: Improved. Low grade fevers continuing. Etiology most likely Left leg Ischemia. 3) LLL pneumonia with mucous plugging on CTA. On CPAP 4) Elevated LFTs from sepsis 5) NINOSKA: creatinine now 0.7 6) PVD: left leg ischemia.. Dry gangrene. will likely be a bilateral amputee due to the lack of ability to anticoagulate him with ischemia of the lower extremities due to GALLEY COOK issues- Vascular following 7) Acute Ischemic CVA- ?embolic, QUIQUE negative for thrombus or vegetation. Recommendations: - follow-up blood cultures and sputum cultures - continue unasyn renally adjusted, D6 of D7 -vascular surgery on board. ID is signing off [facility] M: [id number] O:[phone] Subjective Date of service: 10/18/18 Principal diagnosis: Ac hypercapnic hypoxemic Resp failure; Drug OD; AE-COPD; NINOSKA; Seizures Interval history: Patient seen and examined. Agitated. States that he has left leg pain. no fevers. Objective - Exam Narrative Exam: General: Alert. awake. agitated Eyes: anicteric sclerae, moist conjunctivae; no lid-lag; PERRLA HENT: Atraumatic; Neck: Trachea midline; supple, no thyromegaly or lymphadenopathy Lungs: unable to access CV: RRR Abdomen: Soft, mild tenderness Extremities: No peripheral edema . PVD - left leg ischemia. Skin: no rash Psych: agitated Neuro: agitated - Constitutional Vitals: Vital Signs Temp Pulse Resp BP Pulse Ox 97.9 F 101 H 18 124/66 95 10/18/18 08:23 10/18/18 08:23 10/18/18 11:11 10/18/18 08:23 10/18/18 08:23 Temperature -Last 24 Hours Temperature 97.9 F Temperature 98.3 F Temperature 97.4 F Temperature 98.6 F Temperature 98.2 F Temperature 97.6 F - Labs CBC & Chem 7: 10/17/18 05:40 10/15/18 12:00 Labs: Abnormal lab results 10/17/18 10/18/18 Range/Units 23:11 08:49 POC Glucose 165 H 125 H (70-105)
[2018-10-18] MEDS ORDERED: TYLENOL PR PRN (11:53)
--- NOTE | 2018-10-18 13:06 | Progress Note ---
Assessment and Plan Per swallow evaluation, patient is at significant risk for aspiration on every consistency. Recommend to maintain NPO. Icechips are not recommended. Will reassess in 24 hours.Cont IV lopressor and convert to PO once enteral intake is resumed. Also consider initiation of ACEI/ARB if BPs and renal function permit. Can consider stress test once medically stabilized and once mental status improves. The patient has been seen in conjunction with Dr. Sher Green who agrees with the assessment and plan of care. - Patient Problems (1) Altered mental state Current Visit: Yes Status: Acute Qualifiers: Altered mental status type: unspecified Qualified Code(s): R41.82 - Altered mental status, unspecified (2) Opiate overdose Current Visit: Yes Status: Suspected (3) Acute CVA (cerebrovascular accident) Current Visit: Yes Status: Acute (4) Cardiomyopathy Current Visit: Yes Status: Chronic (5) Paroxysmal atrial fibrillation Current Visit: Yes Status: Acute (6) Seizure Current Visit: Yes Status: Acute (7) Acute respiratory failure Current Visit: Yes Status: Acute (8) NSTEMI (non-ST elevated myocardial infarction) Current Visit: Yes Status: Acute (9) 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 Current Visit: Yes Status: Chronic (10) Hypotension Current Visit: Yes Status: Resolved Qualifiers: Hypotension type: unspecified hypotension type Qualified Code(s): I95.9 - Hypotension, unspecified (11) Acute renal insufficiency Current Visit: Yes Status: Acute (12) Lactic acid acidosis Current Visit: Yes Status: Acute (13) Diabetes mellitus with hyperglycemia Current Visit: Yes Status: Acute (14) Elevated liver enzymes Current Visit: Yes Status: Acute (15) History of hepatitis Current Visit: Yes Status: Chronic (16) History of rheumatic fever as a child Current Visit: Yes Status: Chronic (17) Polysubstance abuse Current Visit: Yes Status: Chronic (18) Tobacco use Current Visit: Yes Status: Chronic (19) Sepsis Current Visit: Yes Status: Acute Qualifiers: Sepsis type: sepsis due to unspecified organism Qualified Code(s): A41.9 - Sepsis, unspecified organism (20) Arterial thrombosis Current Visit: Yes Status: Acute Subjective Date of service: 10/18/18 Principal diagnosis: Ac hypercapnic hypoxemic Resp failure; Drug OD; AE-COPD; NINOSKA; Seizures Interval history: Pt resting in bed, no current cardiac complaints. remains confused. Objective Last Vital Signs Temp 97.9 F 10/18/18 08:23 Pulse 101 H 10/18/18 08:23 Resp 18 10/18/18 11:11 BP 124/66 10/18/18 08:23 Pulse Ox 95 10/18/18 08:23 - Physical Examination General: No Apparent Distress Neck: Positive: neck supple Cardiac: Positive: Reg Rate and Rhythm, S1/S2 Lungs: Positive: Decreased Breath Sounds Neuro: Positive: Grossly Intact Abdomen: Positive: Soft. Negative: Tender Skin: Negative: Rash Extremities: Present: Other (chronic skin changes noted bilaterally. Patient has mottling of the left leg just proximal to the ankle) - Imaging and Cardiology EKG: report reviewed, image reviewed Echo: report reviewed (TDS, mild LVH, severe global hypokinesis of LV, unable to estimate LVEF, trace TR. ) - EKG Sinus rhythms and dysrhythmias: sinus rhythm - Allied health notes Allied health notes reviewed: nursing
[2018-10-18] MEDS ORDERED: PANCREAZE DR 10,500 UNIT FEEDTUBE PRN (13:43)
[2018-10-18] MEDS ORDERED: SIMPLE SYRUP FEEDTUBE PRN ×2 (13:43)
[2018-10-18] MEDS ORDERED: SODIUM BICARBONATE FEEDTUBE PRN (13:43)
--- NOTE | 2018-10-18 15:22 | Progress Note ---
Assessment and Plan 58-year-old male with multiple medical issues including multiple strokes status post partial craniectomy in March for prior strokes with bilateral lower extremity ischemia. Unfortunately, lack of ability to anticoagulate patient, even intraprocedurally, limits our ability to care for the patient. Recommend anticoagulation once cleared by neurology for anticoagulation. Once patient can be anticoagulated, he may benefit from some element of revascularization to limit extent of right lower extremity amputation. At this time, patient will likely be a bilateral amputee due to the lack of ability to anticoagulate him with ischemia of the lower extremities due to ACCOUNT MANAGER RELIEF issues. He has pain of his left lower extremity which is ischemic in nature. Discussed with Dr. Cazares. Pain should be addressed typically by IV EXECUTIVE COMPENSATION ANALYST, but this not optimal in a patient who was admitted for overdose. Plan for PO pain medication with IV breakthrough PRN medication. May need to consider left lower extremity amputation earlier for if pain does not resolve in the next few days. We'll continue to follow. Subjective Date of service: 10/18/18 Principal diagnosis: Ac hypercapnic hypoxemic Resp failure; Drug OD; AE-COPD; NINOSKA; Seizures Interval history: Right forefoot ischemic. Left calf and foot are ischemic. Warm right calf. Left calf cool. Cannot be anticoagulated. Objective - Constitutional Vitals: Vital Signs - 12hr 10/18/18 10/18/18 10/18/18 04:40 07:35 07:45 Temperature 98.3 F Pulse Rate 100 H Pulse Rate [ 95 H 100 H Bilateral] Respiratory 20 Rate Respiratory 18 18 Rate [Bilateral ] Blood Pressure 124/66 O2 Sat by Pulse 93 95 Oximetry 10/18/18 10/18/18 10/18/18 08:23 11:11 12:11 Temperature 97.9 F Pulse Rate 101 H Pulse Rate [ Bilateral] Respiratory 20 18 18 Rate Respiratory Rate [Bilateral ] Blood Pressure 124/66 O2 Sat by Pulse 95 Oximetry 10/18/18 10/18/18 13:39 13:50 Temperature Pulse Rate Pulse Rate [ 104 H 101 H Bilateral] Respiratory Rate Respiratory 18 18 Rate [Bilateral ] Blood Pressure O2 Sat by Pulse Oximetry General appearance: Present: mild distress (left leg pain) - EENT Eyes: EOM intact ENT: hearing intact - Respiratory Respiratory effort: normal Extremities: abnormal (see subjective) - Gastrointestinal General gastrointestinal: Present: soft - Psychiatric Psychiatric: appropriate mood/affect, cooperative - Labs CBC & Chem 7: 10/17/18 05:40 10/15/18 12:00 Labs: Abnormal lab results 10/17/18 10/18/18 10/18/18 Range/Units 23:11 08:49 11:31 POC Glucose 165 H 125 H 182 H (70-105) Medications & Allergies - Medications Allergies/Adverse Reactions: Allergies No Known Allergies Allergy (Verified 10/31/14 11:20) Home Medications: Home Medications Medication Instructions Recorded Confirmed Last Taken Type Gabapentin [Neurontin] 90 mg PO Q8HR 04/22/15 04/22/15 04/21/15 History ALPRAZolam [Xanax TAB] 1 mg PO TID PRN #30 tablet 03/28/16 Unknown Rx Albuterol Sulfate [Ventolin HFA] 2 puff IH Q4H PRN #1 [id number] 03/28/16 Unknown Rx Ciprofloxacin HCl [Ciprofloxacin 500 mg PO Q12HR #30 tab 03/28/16 Unknown Rx TAB] Citalopram [celeXA] 10 mg PO QDAY #30 tablet 03/28/16 Unknown Rx Nicotine [Habitrol] 14 mg TD QDAY #30 patch 03/28/16 Unknown Rx Sitagliptin Phos/Metformin HCl 1 tab PO QDAY #30 tbmp.24hr 03/28/16 Unknown Rx [Janumet XR 100-1,000 mg] oxyCODONE /ACETAMINOPHEN [Percocet 1 tab PO Q6H PRN #60 tablet 03/28/16 Unknown Rx 5/325 mg] Active Medications: Generic Name Dose Route Start Last Admin Trade Name Rudolphq PRN Reason Stop Dose Admin Acetaminophen 650 mg 10/11/18 04:04 10/18/18 11:11 Tylenol PO 650 mg Q4H PRN Administration Pain MILD(1-3)/Fever >100.5/HOLLINS Acetaminophen 650 mg 10/18/18 11:53 Tylenol MT Q4H PRN Pain, Mild(1-3)/Fever>100.5/HOLLINS Albuterol/Ipratropium 1 ampul 10/11/18 14:00 10/18/18 13:39 Duoneb *Not For Prn Use* IH 1 ampul Q6HRT ISAAC Administration Lipase/Protease/Amylase 1 each 10/18/18 13:[address] 10,500 Unit FEEDTUBE PRN PRN For Clogged Feeding Tube Aspirin 325 mg 10/13/18 10:00 10/18/18 10:54 Aspirin PO 325 mg QDAY ISAAC Administration Dextrose 0 ml 10/11/18 03:57 10/11/18 10:18 D50w (25gm) Syringe IV 10 ml PRN PRN Administration Hypoglycemia Famotidine 20 mg 10/15/18 10:00 10/18/18 10:54 Pepcid PO 20 mg BID ISAAC Administration Hydrophilic Ointment 1 applic 10/11/18 14:00 Vaseline Lip Therapy TP Q2HR PRN Dry Lips Ampicillin Sodium/Sulbactam Sodium 3 gm in 100 mls @ 200 mls/hr 10/13/18 14:00 10/18/18 06:19 Unasyn/Ns 3 Gm/100 Ml IV 200 mls/hr Q6HR ISAAC Administration Protocol Insulin Human Regular 0 units 10/17/18 11:30 10/18/18 11:39 Humulin R SUB-Q 3 units ACHS [facility] Administration Protocol Metoprolol Tartrate 2.5 mg 10/15/18 12:00 10/18/18 06:24 Lopressor IV 2.5 mg Q6HR ISAAC Administration Morphine Sulfate 2 mg 10/14/18 11:29 10/18/18 04:59 Morphine IV 2 mg Q4H PRN Administration severe pain 7-10 Multi-Ingred Cream/Lotion/Oil/Oint 1 applic 10/11/18 14:00 Artificial Tears Ophth Oint OU Q4HR PRN Dry Eye(s) Ondansetron HCl 4 mg 10/11/18 04:04 Zofran IV Q8H PRN Nausea And Vomiting Oxycodone/Acetaminophen 1 tab 10/18/18 13:45 Percocet 5/325 PO Q6H PRN Pain, Moderate (4-6) Quetiapine Fumarate 200 mg 10/14/18 22:00 10/17/18 21:59 Seroquel PO Not Given QHS ISAAC Simple Syrup 15 ml 10/18/18 13:43 Simple Syrup FEEDTUBE PRN PRN Hypoglycemia Simple Syrup 30 ml 10/18/18 13:43 Simple Syrup FEEDTUBE PRN PRN Hypoglycemia Sodium Bicarbonate 325 mg 10/18/18 13:43 Sodium Bicarbonate FEEDTUBE PRN PRN For Clogged Feeding Tube Sodium Chloride 10 ml 10/11/18 10:00 10/18/18 10:54 Sodium Chloride Flush Syringe 10 Ml IV 10 ml BID ISAAC Administration Sodium Chloride 10 ml 10/11/18 04:04 Sodium Chloride Flush Syringe 10 Ml IV PRN PRN LINE FLUSH
--- NOTE | 2018-10-18 15:40 | Progress Note ---
Assessment and Plan Possible acute/subacute right FT CVA - Initial CT head had no acute finding, 10/13/18 found unable to move left side - MRI brain showed numerous acute/subacute multilobar infarcts involving the cerebrum and cerebellum including Hemorrhagic transformation of the right frontal and biparietal lobes - was Not a candidate for tPA, cont to monitor off aspirin per teleneurology - plan for QUIQUE today, Speech recommended pureed diet Acute thrombus in bilateral lower extremities - showed on 10/13/18 LE arterial doppler - will not start heparin drip due to acute CVA - vascular consulted, medical Mx for now as not a candidate for surgical inter vention as he can't be anticoagulated Severe sepsis with shock -Probably secondary to aspiration pneumonia -On IV broad-spectrum antibiotics with Unasyn for total 7 days -weaned off Levophed -Blood and sputum cultures negative so far Acute respiratory failure with hypoxia and hypercapnia -Probably secondary to acute COPD/asthma exacerbation and PNA -Required intubation on mechanical ventilator since admission -Pulmonology consulted, s/p extubation 10/16/18 - cont nebs , supplemental O2 as needed LLL pneumonia with mucous plugging on CTA, POA - likely from aspiration? cont abx unasun for total 7 days Hyperglycemia, not in DKA -s/p insulin drip, cont SSI for now, diabetic diet Acute toxic/metabolic encephalopathy, improved -Secondary to drug overdose versus sepsis/DKA vs acute CVA -Initial Head CT scan was negative negative - repeat CT head and MRI showed numerous acute/subacute multilobar infarcts involving the cerebrum and cerebellum including Hemorrhagic transformation of the largest infarcts that involve the right frontal and biparietal lobes - neurology following the patient Seizure -s/p IV lorazepam drip, will defer to neurology for AED - EEG pending Elevated troponin/NSTEMI type 2 -Probably secondary to demand ischemia from acute process/sepsis and underlying CHF -Echocardiogram for further evaluation - Ef 25-30% -Cardiology consulted, recommended medical Mx for now, Acute systolic CHF, Ef 25-30% - monitor ins/os, medical Mx for now, cardiology following ARF, due to vasomotor nephropathy, resolved -On IV fluid, will cont to monitor creatinine level Hyperkalemia, resolved Abnormal LFT -Probably due to sepsis and chronic hepatitis C virus infection -Abdominal US showed no sign of cirrhosis Severe protein calorie malnutrition -Dietitian consulted DVT prophylaxis with heparin and GI prophylaxis with famotidine Disposition: Patient will be transferred to tele Brief History: Patient is a 58-year-old male who was brought to the ED by EMS on account of altered mental status. It was reported that patient was found unresponsive by friends and family. Patient's last known well time was 10:30 PM on 10/10/18. He was given Narcan by EMS en route to the hospital with minimal response. Patient began to seize as EMS pulled into the hospital. Per report, family told EMS that the patient overdosed and has been using Dilaudid. He was intubated in the ER to protect airway, admitted to ICU for further evaluation. On 10/13/18 he noted unable to move left side with b/l cold LE. A stat CT head and arterial doppler ordered showed multiple embolic CVAs and b/l LE acute arterial thrombus. Tele neurology did not recommend tPA as he has h/o hemorrhagic stoke back on March required craniotomy at [place] per family. Vascular consulted for b/l LE thrombus recommended medical mx as he cannot be anticoagulate now. Plan for repeat CT head in 10-15 days to decide for anticoagulation. s/p extubation on 10/16/18. Planned for QUIQUE today, will follow result. CT head 10/11/18: There are chronic changes as described. There is no acute abnormality. . CT head 10/13/18: Hypodense areas seen in the right frontoparietal lobes are slightly worsened compared to prior exam, and cannot rule out involving acute/subacute infarcts versus possible underlying lesions. MRI should be considered for further evaluation. No intracranial hemorrhage visualized. MRI Brain 10/15/18: Numerous acute/subacute multilobar infarcts as described above involving the cerebrum and cerebellum. Hemorrhagic transformation of the largest infarcts that involve the right frontal and biparietal lobes and evidence of older hemorrhage at the margin of older cerebellar infarcts. Postsurgical changes in the posterior fossa and several small acute/subacute cerebellar infarcts at the margin of larger late subacute infarct. LE arterial doppler 10/13/18: 1. Occlusive thrombus within the right external iliac artery extending to the right common femoral artery. 2. Occlusive thrombus within the left distal popliteal artery extending to the anterior and posterior tibial arteries which are also occluded. Subjective Date of service: 10/18/18 Principal diagnosis: Ac hypercapnic hypoxemic Resp failure; Drug OD; AE-COPD; NINOSKA; Seizures Interval history: Patient seen and examined' Noted o/n event, discussed with RN/Pulmonary Patient extubated 10/16/18, tolerating well, Discussed with Son at bedside Objective - Exam Narrative Exam: General appearance: Present: no acute distress, verbal - EENT Eyes: Present: pupil reactive ENT: no discharge - Neck Neck: Present: supple - Respiratory Respiratory effort: normal Respiratory: bilateral: CTA - Cardiovascular Rhythm: regular (with tachycardia) Heart Sounds: Present: S1 & S2 - Extremities Extremity abnormal: b/l LE cyanosis (ischemic changes to the right foot and left foot ) - Abdominal General gastrointestinal: Present: soft, non-distended, normal bowel sounds Male genitourinary: Present: deferred - Integumentary Integumentary: Present: clear, warm, dry - Musculoskeletal Musculoskeletal: left sided weakness - Psychiatric Psychiatric: follows commend - Neurologic Neurologic: focal deficits - left sided weakness - Constitutional Vitals: Vital Signs - 12hr 10/18/18 10/18/18 10/18/18 04:40 07:35 07:45 Temperature 98.3 F Pulse Rate 100 H Pulse Rate [ 95 H 100 H Bilateral] Respiratory 20 Rate Respiratory 18 18 Rate [Bilateral ] Blood Pressure 124/66 O2 Sat by Pulse 93 95 Oximetry 10/18/18 10/18/18 10/18/18 08:23 11:11 12:11 Temperature 97.9 F Pulse Rate 101 H Pulse Rate [ Bilateral] Respiratory 20 18 18 Rate Respiratory Rate [Bilateral ] Blood Pressure 124/66 O2 Sat by Pulse 95 Oximetry 10/18/18 10/18/18 13:39 13:50 Temperature Pulse Rate Pulse Rate [ 104 H 101 H Bilateral] Respiratory Rate Respiratory 18 18 Rate [Bilateral ] Blood Pressure O2 Sat by Pulse Oximetry - Labs CBC & Chem 7: 10/17/18 05:40 10/15/18 12:00 Labs: Abnormal lab results 10/17/18 10/18/18 10/18/18 Range/Units 23:11 08:49 11:31 POC Glucose 165 H 125 H 182 H (70-105)
[2018-10-18] MEDS ORDERED: LOPRESSOR IV PRN (18:51)
[2018-10-18] MEDS: LOVENOX SUB-Q SCH (21:07)
[2018-10-18] MEDS: LOPRESSOR PO SCH (21:07)
[2018-10-19] MEDS: UNASYN/NS 3 GM/100 ML 3 GM/100 ML BAG IV SCH ×3 (00:41→11:17)
[2018-10-19] MEDS ORDERED: PROVENTIL IH PRN (00:54)
[2018-10-19 01:08] LABS: Basophils % (Auto) 0.3 % (0.0-1.8); Eosinophils % (Auto) 0.1 % (0.0-4.3); Hematocrit 33.6 % (35.5-45.6); Hemoglobin 11.4 gm/dl (11.8-15.2); Lymphocytes # (Auto) 1.7 K/mm3 (1.2-5.4); Lymphocytes % (Auto) 19.9 % (13.4-35.0); Mean Corpuscular HGB Conc 34 % (32-34); Mean Corpuscular Volume 91 fl (84-94); Monocytes # (Auto) 1.2 K/mm3 (0.0-0.8); Platelet Count 262 K/mm3 (140-440); Red Cell Distribution Width 13.8 % (13.2-15.2)
[2018-10-19] MEDS: MORPHINE IV PRN ×2 (05:31→21:09)
[2018-10-19 05:36] LABS: Hemoglobin 11.7 gm/dl (11.8-15.2)
[2018-10-19 06:04] LABS: BUN/Creatinine Ratio 18; Blood Urea Nitrogen 11 mg/dL (9-20); Calcium 7.9 mg/dL (8.4-10.2); Hemolysis Index 37
[2018-10-19] MEDS: DUONEB *Not for PRN Use IH SCH ×3 (07:43→22:23)
[2018-10-19] MEDS: HumuLIN R SUB-Q SCH ×4 (08:45→21:10)
[2018-10-19] MEDS: LOPRESSOR PO SCH ×2 (09:00→21:09)
[2018-10-19] MEDS: ASPIRIN PO SCH (09:00)
[2018-10-19] MEDS: PEPCID PO SCH ×2 (09:01→21:09)
--- NOTE | 2018-10-19 09:02 | Progress Note ---
Assessment and Plan Acute hypoxemic respiratory failure,s/p mechanical ventilator support--extubated. 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 Witnessed seizure en route. Acute kidney injury. Leukocytosis. Hypercapnia. Hyperkalemia. Metabolic acidosis. Lactic acidosis. Non-ST elevation myocardial infarction. Elevated serum transaminases. - continue bronchodilators with pulmonary hygiene per RT - continue VTE prophylaxis - continue to wean supplemental oxygen to keep O2 sats 88-90% - PRN ABGs/CXR - Continue cardioprotective measures -Continue with secondary stroke prophylaxis - Replete electrolytes as indicated - Follow cultures and adjust antibiotics for ID/CALEB (Deescalate as indicated) - Avoid nephrotoxic agents, adjust all medications for CrCL - Aspiration precautions -PT/OT - Accuchecks with glycemic control. Target glucose of 140-180 mg/dL - Influenza and pneumonia vaccination per protocol Subjective Date of service: 10/19/18 Principal diagnosis: Ac hypercapnic hypoxemic Resp failure; Drug OD; AE-COPD; NINOSKA; Seizures Interval history: Patient is seen today for: Acute hypoxemic respiratory failure, s/p mechanical ventilator support; Drug overdose; Acute chronic obstructive pulmonary disease exacerbation; Witnessed seizure en route; Acute kidney injury; Leukocytosis; Hypercapnia. Seen and examined at bedside; 24-hour events reviewed; nursing and respiratory care staff consulted; no adverse overnight events reported to me; doing well post extubation ; No N/V/F/C; hemiparesis is persistent, but improving on the left side; no gross bleeding; failed bedside dysphagia screen, awaiting speech language pathology objective evaluation of swallow; s/p QUIQUE Asking for water, not requiring supplemental oxygen therapy Objective Vital Signs - 12hr 10/18/18 10/18/18 10/19/18 22:00 23:23 04:12 Temperature 97.4 F L 98.5 F Pulse Rate 102 H 89 86 Respiratory 20 16 19 Rate Blood Pressure 106/54 134/70 O2 Sat by Pulse 91 94 Oximetry 10/19/18 07:33 Temperature 98.4 F Pulse Rate 86 Respiratory 18 Rate Blood Pressure 124/69 O2 Sat by Pulse 93 Oximetry Constitutional: no acute distress, other (middle aged but chronically ill looking CM; Atraumatic) Eyes: non-icteric ENT: oropharynx moist Neck: supple, no lymphadenopathy, no JVD Effort: normal Ascultation: Bilateral: diminished breath sounds, rhonchi Percussion: Bilateral: not dull Cardiovascular: irregular rhythm, other (No R/M) Gastrointestinal: normoactive bowel sounds, soft, non-tender, non-distended Integumentary: other (poor turgor) Extremities: no edema, cool, cyanosis Neurologic: pupils equal and round, other (Left hemiparesis, improving) Psychiatric: mood appropriate, affect normal CBC and BMP: 10/31/18 05:21 10/30/18 04:22 ABG, PT/INR, D-dimer: ABG POC ABG pH 7.393 (7.35-7.45) 10/16/18 12:51 POC ABG pCO2 48.9 (35-45) H 10/16/18 12:51 POC ABG pO2 92 (80-105) 10/16/18 12:51 POC ABG HCO3 29.8 (22-26 mml/L) 10/16/18 12:51 POC ABG Total CO2 31 (23-27mmol/L) 10/16/18 12:51 POC ABG O2 Sat 97 10/16/18 12:51 PT/INR, D-dimer PT 14.7 Sec. (12.2-14.9) 10/11/18 08:29 INR 1.08 (0.87-1.13) 10/11/18 08:29 Abnormal lab findings: Abnormal Labs 10/11/18 10/11/18 10/11/18 00:16 00:16 00:16 WBC 20.1 H Hgb Hct MCV 98 H RDW 15.4 H Plt Count Powell % (Auto) Powell # Seg Neutrophils % Seg Neuts % (Manual) Lymphocytes % (Manual) 5.0 L Monocytes % (Manual) 25.0 H Seg Neutrophils # Seg Neutrophils # Man 9.2 H Lymphocytes # (Manual) 1.0 L Monocytes # (Manual) 5.0 H APTT POC ABG pH POC ABG pCO2 POC ABG pO2 Sodium Potassium 5.8 H Chloride Carbon Dioxide 17 L BUN Creatinine 2.2 H Glucose 348 H POC Glucose Lactic Acid 13.70 H* Calcium 7.7 L Phosphorus Total Bilirubin 1.50 H AST 179 H ALT 110 H Total Creatine Kinase 324 H CK-MB (CK-2) Troponin T 0.257 H* Total Protein 5.9 L Albumin 2.9 L HDL Cholesterol 19 L Salicylates Acetaminophen 10/11/18 10/11/18 10/11/18 00:16 00:16 01:21 WBC Hgb Hct MCV RDW Plt Count Powell % (Auto) Powell # Seg Neutrophils % Seg Neuts % (Manual) Lymphocytes % (Manual) Monocytes % (Manual) Seg Neutrophils # Seg Neutrophils # Man Lymphocytes # (Manual) Monocytes # (Manual) APTT POC ABG pH 7.110 L POC ABG pCO2 50.3 H POC ABG pO2 65 L Sodium Potassium Chloride Carbon Dioxide BUN Creatinine Glucose POC Glucose Lactic Acid Calcium Phosphorus Total Bilirubin AST ALT Total Creatine Kinase CK-MB (CK-2) Troponin T Total Protein Albumin HDL Cholesterol Salicylates < 0.3 L Acetaminophen < 5.0 L 10/11/18 10/11/18 10/11/18 01:22 03:27 04:14 WBC Hgb Hct MCV RDW Plt Count Powell % (Auto) Powell # Seg Neutrophils % Seg Neuts % (Manual) Lymphocytes % (Manual) Monocytes % (Manual) Seg Neutrophils # Seg Neutrophils # Man Lymphocytes # (Manual) Monocytes # (Manual) APTT POC ABG pH POC ABG pCO2 POC ABG pO2 Sodium Potassium Chloride Carbon Dioxide BUN Creatinine Glucose POC Glucose Lactic Acid 8.50 H* 4.10 H* Calcium Phosphorus 4.90 H Total Bilirubin AST ALT Total Creatine Kinase CK-MB (CK-2) Troponin T Total Protein Albumin HDL Cholesterol Salicylates Acetaminophen 10/11/18 10/11/18 10/11/18 04:14 04:14 04:14 WBC Hgb Hct MCV RDW Plt Count [place] % (Auto) Powell # Seg Neutrophils % Seg Neuts % (Manual) Lymphocytes % (Manual) Monocytes % (Manual) Seg Neutrophils # Seg Neutrophils # Man Lymphocytes # (Manual) Monocytes # (Manual) APTT POC ABG pH POC ABG pCO2 POC ABG pO2 Sodium Potassium 5.6 H Chloride Carbon Dioxide 19 L BUN Creatinine 1.6 H Glucose 329 H POC Glucose 328 H Lactic Acid Calcium 7.3 L Phosphorus Total Bilirubin AST ALT Total Creatine Kinase CK-MB (CK-2) Troponin T 1.130 H* D Total Protein Albumin HDL Cholesterol Salicylates Acetaminophen 10/11/18 10/11/18 10/11/18 05:10 05:32 05:58 WBC Hgb Hct MCV RDW Plt Count [place] % (Auto) Powell # Seg Neutrophils % Seg Neuts % (Manual) Lymphocytes % (Manual) Monocytes % (Manual) Seg Neutrophils # Seg Neutrophils # Man Lymphocytes # (Manual) Monocytes # (Manual) APTT POC ABG pH 7.259 L POC ABG pCO2 45.6 H POC ABG pO2 Sodium Potassium Chloride 108.6 H Carbon Dioxide 20 L BUN Creatinine 1.8 H Glucose 269 H POC Glucose 273 H Lactic Acid Calcium 7.0 L Phosphorus Total Bilirubin AST ALT Total Creatine Kinase CK-MB (CK-2) Troponin T Total Protein Albumin HDL Cholesterol Salicylates Acetaminophen 10/11/18 10/11/18 10/11/18 05:58 06:39 07:00 WBC Hgb Hct MCV RDW Plt Count [place] % (Auto) Powell # Seg Neutrophils % Seg Neuts % (Manual) Lymphocytes % (Manual) Monocytes % (Manual) Seg Neutrophils # Seg Neutrophils # Man Lymphocytes # (Manual) Monocytes # (Manual) APTT POC ABG pH POC ABG pCO2 POC ABG pO2 Sodium Potassium Chloride Carbon Dioxide BUN Creatinine Glucose POC Glucose 247 H Lactic Acid 3.20 H* 3.30 H* Calcium Phosphorus Total Bilirubin AST ALT Total Creatine Kinase CK-MB (CK-2) Troponin T Total Protein Albumin HDL Cholesterol Salicylates Acetaminophen 10/11/18 10/11/18 10/11/18 07:00 07:30 07:36 WBC Hgb Hct MCV RDW Plt Count [place] % (Auto) Powell # Seg Neutrophils % Seg Neuts % (Manual) Lymphocytes % (Manual) Monocytes % (Manual) Seg Neutrophils # Seg Neutrophils # Man Lymphocytes # (Manual) Monocytes # (Manual) APTT POC ABG pH POC ABG pCO2 POC ABG pO2 Sodium 146 H Potassium Chloride 112.1 H Carbon Dioxide 21 L BUN Creatinine 1.6 H Glucose 218 H POC Glucose Lactic Acid 3.20 H* Calcium 7.0 L Phosphorus Total Bilirubin AST ALT Total Creatine Kinase CK-MB (CK-2) Troponin T 1.020 H* Total Protein Albumin HDL Cholesterol Salicylates Acetaminophen 10/11/18 10/11/18 10/11/18 07:43 08:29 08:29 WBC Hgb 16.2 H Hct 49.9 H D MCV RDW Plt Count [place] % (Auto) Powell # Seg Neutrophils % Seg Neuts % (Manual) Lymphocytes % (Manual) Monocytes % (Manual) Seg Neutrophils # Seg Neutrophils # Man Lymphocytes # (Manual) Monocytes # (Manual) APTT POC ABG pH POC ABG pCO2 POC ABG pO2 Sodium Potassium Chloride Carbon Dioxide BUN Creatinine Glucose POC Glucose 174 H Lactic Acid 3.90 H* Calcium Phosphorus Total Bilirubin AST ALT Total Creatine Kinase CK-MB (CK-2) Troponin T Total Protein Albumin HDL Cholesterol Salicylates Acetaminophen 10/11/18 10/11/18 10/11/18 08:29 08:42 11:05 WBC Hgb Hct MCV RDW Plt Count [place] % (Auto) Powell # Seg Neutrophils % Seg Neuts % (Manual) Lymphocytes % (Manual) Monocytes % (Manual) Seg Neutrophils # Seg Neutrophils # Man Lymphocytes # (Manual) Monocytes # (Manual) APTT 24.1 L POC ABG pH POC ABG pCO2 POC ABG pO2 Sodium 147 H Potassium Chloride 113.3 H Carbon Dioxide 21 L BUN Creatinine 1.7 H Glucose 119 H POC Glucose 164 H Lactic Acid Calcium 7.7 L Phosphorus Total Bilirubin AST ALT Total Creatine Kinase CK-MB (CK-2) Troponin T Total Protein Albumin HDL Cholesterol Salicylates Acetaminophen 10/11/18 10/11/18 10/11/18 11:05 11:06 12:30 WBC Hgb Hct MCV RDW Plt Count Powell % (Auto) Powell # Seg Neutrophils % Seg Neuts % (Manual) Lymphocytes % (Manual) Monocytes % (Manual) Seg Neutrophils # Seg Neutrophils # Man Lymphocytes # (Manual) Monocytes # (Manual) APTT POC ABG pH POC ABG pCO2 POC ABG pO2 Sodium 148 H Potassium Chloride 113.4 H Carbon Dioxide 21 L BUN Creatinine 1.6 H Glucose 119 H POC Glucose 116 H Lactic Acid 3.20 H* Calcium 7.5 L Phosphorus Total Bilirubin AST ALT Total Creatine Kinase CK-MB (CK-2) Troponin T Total Protein Albumin HDL Cholesterol Salicylates Acetaminophen 10/11/18 10/11/18 10/11/18 12:30 13:16 13:25 WBC Hgb Hct MCV RDW Plt Count [place] % (Auto) Powell # Seg Neutrophils % Seg Neuts % (Manual) Lymphocytes % (Manual) Monocytes % (Manual) Seg Neutrophils # Seg Neutrophils # Man Lymphocytes # (Manual) Monocytes # (Manual) APTT POC ABG pH 7.247 L POC ABG pCO2 48.4 H POC ABG pO2 Sodium Potassium Chloride Carbon Dioxide BUN Creatinine Glucose POC Glucose 112 H Lactic Acid 2.70 H* Calcium Phosphorus Total Bilirubin AST ALT Total Creatine Kinase CK-MB (CK-2) Troponin T Total Protein Albumin HDL Cholesterol Salicylates Acetaminophen 10/11/18 10/11/18 10/11/18 14:41 15:27 16:13 WBC Hgb Hct MCV RDW Plt Count [place] % (Auto) Powell # Seg Neutrophils % Seg Neuts % (Manual) Lymphocytes % (Manual) Monocytes % (Manual) Seg Neutrophils # Seg Neutrophils # Man Lymphocytes # (Manual) Monocytes # (Manual) APTT POC ABG pH POC ABG pCO2 POC ABG pO2 Sodium Potassium Chloride Carbon Dioxide BUN Creatinine Glucose POC Glucose 127 H 141 H 134 H Lactic Acid Calcium Phosphorus Total Bilirubin AST ALT Total Creatine Kinase CK-MB (CK-2) Troponin T Total Protein Albumin HDL Cholesterol Salicylates Acetaminophen 10/11/18 10/11/18 10/11/18 17:18 18:23 19:38 WBC Hgb Hct MCV RDW Plt Count [place] % (Auto) Powell # Seg Neutrophils % Seg Neuts % (Manual) Lymphocytes % (Manual) Monocytes % (Manual) Seg Neutrophils # Seg Neutrophils # Man Lymphocytes # (Manual) Monocytes # (Manual) APTT POC ABG pH POC ABG pCO2 POC ABG pO2 Sodium 148 H Potassium Chloride 112.7 H Carbon Dioxide BUN 23 H Creatinine Glucose 143 H POC Glucose 132 H 129 H Lactic Acid Calcium 7.9 L Phosphorus Total Bilirubin AST ALT Total Creatine Kinase CK-MB (CK-2) Troponin T Total Protein Albumin HDL Cholesterol Salicylates Acetaminophen 10/11/18 10/11/18 10/11/18 20:19 20:36 21:01 WBC Hgb Hct MCV RDW Plt Count [place] % (Auto) Powell # Seg Neutrophils % Seg Neuts % (Manual) Lymphocytes % (Manual) Monocytes % (Manual) Seg Neutrophils # Seg Neutrophils # Man Lymphocytes # (Manual) Monocytes # (Manual) APTT POC ABG pH 7.281 L POC ABG pCO2 POC ABG pO2 Sodium Potassium Chloride Carbon Dioxide BUN Creatinine Glucose POC Glucose 129 H 151 H Lactic Acid Calcium Phosphorus Total Bilirubin AST ALT Total Creatine Kinase CK-MB (CK-2) Troponin T Total Protein Albumin HDL Cholesterol Salicylates Acetaminophen 10/11/18 10/11/18 10/12/18 22:04 23:15 01:18 WBC Hgb Hct MCV RDW Plt Count [place] % (Auto) Powell # Seg Neutrophils % Seg Neuts % (Manual) Lymphocytes % (Manual) Monocytes % (Manual) Seg Neutrophils # Seg Neutrophils # Man Lymphocytes # (Manual) Monocytes # (Manual) APTT POC ABG pH POC ABG pCO2 POC ABG pO2 Sodium Potassium Chloride Carbon Dioxide BUN Creatinine Glucose POC Glucose 147 H 143 H 158 H Lactic Acid Calcium Phosphorus Total Bilirubin AST ALT Total Creatine Kinase CK-MB (CK-2) Troponin T Total Protein Albumin HDL Cholesterol Salicylates Acetaminophen 10/12/18 10/12/18 10/12/18 02:13 03:18 04:04 WBC Hgb Hct MCV RDW Plt Count [place] % (Auto) Powell # Seg Neutrophils % Seg Neuts % (Manual) Lymphocytes % (Manual) Monocytes % (Manual) Seg Neutrophils # Seg Neutrophils # Man Lymphocytes # (Manual) Monocytes # (Manual) APTT POC ABG pH POC ABG pCO2 POC ABG pO2 Sodium 147 H Potassium Chloride 111.1 H Carbon Dioxide BUN 30 H Creatinine 2.0 H Glucose 154 H POC Glucose 148 H 142 H Lactic Acid Calcium 8.1 L Phosphorus Total Bilirubin AST 269 H ALT 204 H Total Creatine Kinase 3647 H CK-MB (CK-2) 48.3 H Troponin T 2.230 H* D Total Protein 5.8 L Albumin 2.6 L HDL Cholesterol Salicylates Acetaminophen 10/12/18 10/12/18 10/12/18 04:04 04:08 04:19 WBC 24.4 H Hgb Hct MCV RDW Plt Count [place] % (Auto) Powell # Seg Neutrophils % Seg Neuts % (Manual) 32.0 L Lymphocytes % (Manual) Monocytes % (Manual) 8.0 H Seg Neutrophils # Seg Neutrophils # Man 7.8 H Lymphocytes # (Manual) Monocytes # (Manual) 2.0 H APTT POC ABG pH 7.317 L POC ABG pCO2 49.3 H POC ABG pO2 Sodium Potassium Chloride Carbon Dioxide BUN Creatinine Glucose POC Glucose 143 H Lactic Acid Calcium Phosphorus Total Bilirubin AST ALT Total Creatine Kinase CK-MB (CK-2) Troponin T Total Protein Albumin HDL Cholesterol Salicylates Acetaminophen 10/12/18 10/12/18 10/12/18 05:29 06:52 08:09 WBC Hgb Hct MCV RDW Plt Count [place] % (Auto) Powell # Seg Neutrophils % Seg Neuts % (Manual) Lymphocytes % (Manual) Monocytes % (Manual) Seg Neutrophils # Seg Neutrophils # Man Lymphocytes # (Manual) Monocytes # (Manual) APTT POC ABG pH 7.322 L POC ABG pCO2 46.5 H POC ABG pO2 Sodium Potassium Chloride Carbon Dioxide BUN Creatinine Glucose POC Glucose 196 H 226 H Lactic Acid Calcium Phosphorus Total Bilirubin AST ALT Total Creatine Kinase CK-MB (CK-2) Troponin T Total Protein Albumin HDL Cholesterol Salicylates Acetaminophen 10/12/18 10/12/18 10/12/18 08:38 10:03 15:50 WBC Hgb Hct MCV RDW Plt Count [place] % (Auto) Powell # Seg Neutrophils % Seg Neuts % (Manual) Lymphocytes % (Manual) Monocytes % (Manual) Seg Neutrophils # Seg Neutrophils # Man Lymphocytes # (Manual) Monocytes # (Manual) APTT POC ABG pH POC ABG pCO2 POC ABG pO2 Sodium Potassium Chloride Carbon Dioxide BUN Creatinine Glucose POC Glucose 138 H 148 H 221 H Lactic Acid Calcium Phosphorus Total Bilirubin AST ALT Total Creatine Kinase CK-MB (CK-2) Troponin T Total Protein Albumin HDL Cholesterol Salicylates Acetaminophen 10/12/18 10/12/18 10/12/18 18:39 20:56 21:34 WBC Hgb Hct MCV RDW Plt Count [place] % (Auto) Powell # Seg Neutrophils % Seg Neuts % (Manual) Lymphocytes % (Manual) Monocytes % (Manual) Seg Neutrophils # Seg Neutrophils # Man Lymphocytes # (Manual) Monocytes # (Manual) APTT POC ABG pH 7.336 L POC ABG pCO2 46.0 H POC ABG pO2 Sodium Potassium Chloride Carbon Dioxide BUN Creatinine Glucose POC Glucose 255 H 260 H Lactic Acid Calcium Phosphorus Total Bilirubin AST ALT Total Creatine Kinase CK-MB (CK-2) Troponin T Total Protein Albumin HDL Cholesterol Salicylates Acetaminophen 10/13/18 10/13/18 10/13/18 02:29 05:09 05:40 WBC 17.0 H Hgb Hct MCV RDW Plt Count Powell % (Auto) 9.2 H Powell # 1.6 H Seg Neutrophils % 76.2 H Seg Neuts % (Manual) Lymphocytes % (Manual) Monocytes % (Manual) Seg Neutrophils # 12.9 H Seg Neutrophils # Man Lymphocytes # (Manual) Monocytes # (Manual) APTT POC ABG pH POC ABG pCO2 POC ABG pO2 Sodium Potassium Chloride Carbon Dioxide BUN Creatinine Glucose POC Glucose 216 H 249 H Lactic Acid Calcium Phosphorus Total Bilirubin AST ALT Total Creatine Kinase CK-MB (CK-2) Troponin T Total Protein Albumin HDL Cholesterol Salicylates Acetaminophen 10/13/18 10/13/18 10/13/18 05:40 05:40 09:46 WBC Hgb Hct MCV RDW Plt Count [place] % (Auto) Powell # Seg Neutrophils % Seg Neuts % (Manual) Lymphocytes % (Manual) Monocytes % (Manual) Seg Neutrophils # Seg Neutrophils # Man Lymphocytes # (Manual) Monocytes # (Manual) APTT POC ABG pH POC ABG pCO2 POC ABG pO2 Sodium 146 H Potassium Chloride 109.8 H Carbon Dioxide BUN 35 H Creatinine Glucose 245 H POC Glucose 235 H Lactic Acid Calcium 7.9 L Phosphorus Total Bilirubin AST ALT Total Creatine Kinase CK-MB (CK-2) Troponin T 0.952 H* D Total Protein Albumin HDL Cholesterol Salicylates Acetaminophen 10/13/18 10/13/18 10/13/18 13:58 16:15 17:30 WBC Hgb Hct MCV RDW Plt Count [place] % (Auto) Powell # Seg Neutrophils % Seg Neuts % (Manual) Lymphocytes % (Manual) Monocytes % (Manual) Seg Neutrophils # Seg Neutrophils # Man Lymphocytes # (Manual) Monocytes # (Manual) APTT POC ABG pH POC ABG pCO2 51.2 H POC ABG pO2 Sodium Potassium Chloride Carbon Dioxide BUN Creatinine Glucose POC Glucose 139 H Lactic Acid Calcium Phosphorus Total Bilirubin AST ALT Total Creatine Kinase CK-MB (CK-2) Troponin T 0.816 H* Total Protein Albumin HDL Cholesterol Salicylates Acetaminophen 10/13/18 10/14/18 10/14/18 21:25 01:49 04:52 WBC Hgb Hct MCV RDW Plt Count [place] % (Auto) Powell # Seg Neutrophils % Seg Neuts % (Manual) Lymphocytes % (Manual) Monocytes % (Manual) Seg Neutrophils # Seg Neutrophils # Man Lymphocytes # (Manual) Monocytes # (Manual) APTT POC ABG pH POC ABG pCO2 56.0 H POC ABG pO2 Sodium Potassium Chloride Carbon Dioxide BUN Creatinine Glucose POC Glucose 205 H 166 H Lactic Acid Calcium Phosphorus Total Bilirubin AST ALT Total Creatine Kinase CK-MB (CK-2) Troponin T Total Protein Albumin HDL Cholesterol Salicylates Acetaminophen 10/14/18 10/14/18 10/14/18 05:32 09:45 09:45 WBC Hgb 11.4 L Hct 34.5 L MCV RDW Plt Count 139 L Powell % (Auto) Powell # Seg Neutrophils % Seg Neuts % (Manual) Lymphocytes % (Manual) Monocytes % (Manual) Seg Neutrophils # Seg Neutrophils # Man Lymphocytes # (Manual) Monocytes # (Manual) APTT POC ABG pH POC ABG pCO2 POC ABG pO2 Sodium 148 H Potassium Chloride 107.3 H Carbon Dioxide 34 H D BUN Creatinine 0.7 L D Glucose 191 H POC Glucose 164 H Lactic Acid Calcium 7.3 L Phosphorus Total Bilirubin AST 110 H ALT 91 H Total Creatine Kinase CK-MB (CK-2) Troponin T Total Protein 4.9 L Albumin 2.0 L HDL Cholesterol Salicylates Acetaminophen 10/14/18 10/14/18 10/14/18 10:54 12:20 18:30 WBC Hgb Hct MCV RDW Plt Count [place] % (Auto) Powell # Seg Neutrophils % Seg Neuts % (Manual) Lymphocytes % (Manual) Monocytes % (Manual) Seg Neutrophils # Seg Neutrophils # Man Lymphocytes # (Manual) Monocytes # (Manual) APTT POC ABG pH POC ABG pCO2 POC ABG pO2 Sodium Potassium Chloride Carbon Dioxide BUN Creatinine Glucose POC Glucose 173 H 158 H 108 H Lactic Acid Calcium Phosphorus Total Bilirubin AST ALT Total Creatine Kinase CK-MB (CK-2) Troponin T Total Protein Albumin HDL Cholesterol Salicylates Acetaminophen 10/14/18 10/15/18 10/15/18 21:54 02:12 04:19 WBC Hgb Hct MCV RDW Plt Count [place] % (Auto) Powell # Seg Neutrophils % Seg Neuts % (Manual) Lymphocytes % (Manual) Monocytes % (Manual) Seg Neutrophils # Seg Neutrophils # Man Lymphocytes # (Manual) Monocytes # (Manual) APTT POC ABG pH 7.491 H POC ABG pCO2 45.1 H POC ABG pO2 Sodium Potassium Chloride Carbon Dioxide BUN Creatinine Glucose POC Glucose 110 H 164 H Lactic Acid Calcium Phosphorus Total Bilirubin AST ALT Total Creatine Kinase CK-MB (CK-2) Troponin T Total Protein Albumin HDL Cholesterol Salicylates Acetaminophen 10/15/18 10/15/18 10/15/18 04:55 05:43 06:20 WBC Hgb 11.7 L Hct 34.7 L MCV RDW Plt Count [place] % (Auto) Powell # Seg Neutrophils % Seg Neuts % (Manual) Lymphocytes % (Manual) Monocytes % (Manual) Seg Neutrophils # Seg Neutrophils # Man Lymphocytes # (Manual) Monocytes # (Manual) APTT POC ABG pH POC ABG pCO2 47.3 H POC ABG pO2 78 L Sodium Potassium Chloride Carbon Dioxide BUN Creatinine Glucose POC Glucose 250 H Lactic Acid Calcium Phosphorus Total Bilirubin AST ALT Total Creatine Kinase CK-MB (CK-2) Troponin T Total Protein Albumin HDL Cholesterol Salicylates Acetaminophen 10/15/18 10/15/18 10/15/18 12:00 12:00 12:11 WBC Hgb 11.5 L Hct 34.0 L MCV RDW Plt Count [place] % (Auto) Powell # Seg Neutrophils % Seg Neuts % (Manual) Lymphocytes % (Manual) Monocytes % (Manual) Seg Neutrophils # Seg Neutrophils # Man Lymphocytes # (Manual) Monocytes # (Manual) APTT POC ABG pH POC ABG pCO2 POC ABG pO2 Sodium 147 H Potassium Chloride 108.5 H Carbon Dioxide BUN Creatinine 0.7 L Glucose 209 H POC Glucose 197 H Lactic Acid Calcium 7.3 L Phosphorus Total Bilirubin AST ALT Total Creatine Kinase CK-MB (CK-2) Troponin T Total Protein Albumin HDL Cholesterol Salicylates Acetaminophen 10/15/18 10/15/18 10/15/18 15:48 18:34 21:29 WBC Hgb Hct MCV RDW Plt Count [place] % (Auto) Powell # Seg Neutrophils % Seg Neuts % (Manual) Lymphocytes % (Manual) Monocytes % (Manual) Seg Neutrophils # Seg Neutrophils # Man Lymphocytes # (Manual) Monocytes # (Manual) APTT POC ABG pH POC ABG pCO2 POC ABG pO2 Sodium Potassium Chloride Carbon Dioxide BUN Creatinine Glucose POC Glucose 220 H 249 H 209 H Lactic Acid Calcium Phosphorus Total Bilirubin AST ALT Total Creatine Kinase CK-MB (CK-2) Troponin T Total Protein Albumin HDL Cholesterol Salicylates Acetaminophen 10/16/18 10/16/18 10/16/18 02:16 03:50 05:57 WBC Hgb Hct MCV RDW Plt Count [place] % (Auto) Powell # Seg Neutrophils % Seg Neuts % (Manual) Lymphocytes % (Manual) Monocytes % (Manual) Seg Neutrophils # Seg Neutrophils # Man Lymphocytes # (Manual) Monocytes # (Manual) APTT POC ABG pH POC ABG pCO2 55.8 H POC ABG pO2 Sodium Potassium Chloride Carbon Dioxide BUN Creatinine Glucose POC Glucose 110 H 209 H Lactic Acid Calcium Phosphorus Total Bilirubin AST ALT Total Creatine Kinase CK-MB (CK-2) Troponin T Total Protein Albumin HDL Cholesterol Salicylates Acetaminophen 10/16/18 10/16/18 10/16/18 10:51 12:51 15:01 WBC Hgb Hct MCV RDW Plt Count [place] % (Auto) Powell # Seg Neutrophils % Seg Neuts % (Manual) Lymphocytes % (Manual) Monocytes % (Manual) Seg Neutrophils # Seg Neutrophils # Man Lymphocytes # (Manual) Monocytes # (Manual) APTT POC ABG pH POC ABG pCO2 48.9 H POC ABG pO2 Sodium Potassium Chloride Carbon Dioxide BUN Creatinine Glucose POC Glucose 198 H 196 H Lactic Acid Calcium Phosphorus Total Bilirubin AST ALT Total Creatine Kinase CK-MB (CK-2) Troponin T Total Protein Albumin HDL Cholesterol Salicylates Acetaminophen 10/16/18 10/16/18 10/17/18 17:34 21:59 02:17 WBC Hgb Hct MCV RDW Plt Count [place] % (Auto) Powell # Seg Neutrophils % Seg Neuts % (Manual) Lymphocytes % (Manual) Monocytes % (Manual) Seg Neutrophils # Seg Neutrophils # Man Lymphocytes # (Manual) Monocytes # (Manual) APTT POC ABG pH POC ABG pCO2 POC ABG pO2 Sodium Potassium Chloride Carbon Dioxide BUN Creatinine Glucose POC Glucose 179 H 139 H 135 H Lactic Acid Calcium Phosphorus Total Bilirubin AST ALT Total Creatine Kinase CK-MB (CK-2) Troponin T Total Protein Albumin HDL Cholesterol Salicylates Acetaminophen 10/17/18 10/17/18 10/17/18 05:40 05:47 10:18 WBC Hgb 11.3 L Hct 33.2 L MCV RDW Plt Count [place] % (Auto) Powell # Seg Neutrophils % Seg Neuts % (Manual) Lymphocytes % (Manual) Monocytes % (Manual) Seg Neutrophils # Seg Neutrophils # Man Lymphocytes # (Manual) Monocytes # (Manual) APTT POC ABG pH POC ABG pCO2 POC ABG pO2 Sodium Potassium Chloride Carbon Dioxide BUN Creatinine Glucose POC Glucose 125 H 139 H Lactic Acid Calcium Phosphorus Total Bilirubin AST ALT Total Creatine Kinase CK-MB (CK-2) Troponin T Total Protein Albumin HDL Cholesterol Salicylates Acetaminophen 10/17/18 10/18/18 10/18/18 23:11 08:49 11:31 WBC Hgb Hct MCV RDW Plt Count [place] % (Auto) Powell # Seg Neutrophils % Seg Neuts % (Manual) Lymphocytes % (Manual) Monocytes % (Manual) Seg Neutrophils # Seg Neutrophils # Man Lymphocytes # (Manual) Monocytes # (Manual) APTT POC ABG pH POC ABG pCO2 POC ABG pO2 Sodium Potassium Chloride Carbon Dioxide BUN Creatinine Glucose POC Glucose 165 H 125 H 182 H Lactic Acid Calcium Phosphorus Total Bilirubin AST ALT Total Creatine Kinase CK-MB (CK-2) Troponin T Total Protein Albumin HDL Cholesterol Salicylates Acetaminophen 10/18/18 10/18/18 10/19/18 16:12 21:02 00:28 WBC Hgb 11.4 L Hct 33.6 L MCV RDW Plt Count [place] % (Auto) 14.0 H Powell # 1.2 H Seg Neutrophils % Seg Neuts % (Manual) Lymphocytes % (Manual) Monocytes % (Manual) Seg Neutrophils # Seg Neutrophils # Man Lymphocytes # (Manual) Monocytes # (Manual) APTT POC ABG pH POC ABG pCO2 POC ABG pO2 Sodium Potassium Chloride Carbon Dioxide BUN Creatinine Glucose POC Glucose 168 H 324 H Lactic Acid Calcium Phosphorus Total Bilirubin AST ALT Total Creatine Kinase CK-MB (CK-2) Troponin T Total Protein Albumin HDL Cholesterol Salicylates Acetaminophen 10/19/18 10/19/18 10/19/18 04:57 04:57 07:32 WBC Hgb 11.7 L Hct 34.0 L MCV RDW Plt Count [place] % (Auto) [place] # Seg Neutrophils % Seg Neuts % (Manual) Lymphocytes % (Manual) Monocytes % (Manual) Seg Neutrophils # Seg Neutrophils # Man Lymphocytes # (Manual) Monocytes # (Manual) APTT POC ABG pH POC ABG pCO2 POC ABG pO2 Sodium Potassium 3.5 L Chloride 108.6 H Carbon Dioxide BUN Creatinine 0.6 L Glucose POC Glucose 159 H Lactic Acid Calcium 7.9 L Phosphorus Total Bilirubin AST ALT Total Creatine Kinase CK-MB (CK-2) Troponin T Total Protein Albumin HDL Cholesterol Salicylates Acetaminophen Allied health notes reviewed: nursing
[2018-10-19] MEDS: SODIUM CHLORIDE FLUSH SYRINGE 10 ML IV SCH ×2 (09:04→21:10)
[2018-10-19] MEDS: DILAUDID IV PRN ×4 (09:13→19:21)
--- NOTE | 2018-10-19 09:37 | Progress Note ---
Assessment and Plan If patient is able to tolerate anticoagulation, would anticipate revascularization procedure on bilateral lower extremities next week. The patient will likely require at least bilateral [id number] amputations secondary to distal ischemia. Subjective Date of service: 10/19/18 Principal diagnosis: Ac hypercapnic hypoxemic Resp failure; Drug OD; AE-COPD; NINOSKA; Seizures Interval history: Patient continues to improve from mental status point of view. He is restrained on the right side arm and leg. The patient is lucid and appears to understand that he will need lower extremity intervention when he is able to tolerate anticoagulation. He is anxious to move around. Objective - Constitutional Vitals: Vital Signs - 12hr 10/18/18 10/18/18 10/19/18 22:00 23:23 04:12 Temperature 97.4 F L 98.5 F Pulse Rate 102 H 89 86 Respiratory 20 16 19 Rate Blood Pressure 106/54 134/70 O2 Sat by Pulse 91 94 Oximetry 10/19/18 07:33 Temperature 98.4 F Pulse Rate 86 Respiratory 18 Rate Blood Pressure 124/69 O2 Sat by Pulse 93 Oximetry General appearance: Present: mild distress - EENT Eyes: EOM intact ENT: hearing intact - Neck Neck: supple, normal ROM - Respiratory Respiratory effort: normal - Breasts Breasts: deferred - Cardiovascular Rhythm: regular Extremities: abnormal - Gastrointestinal General gastrointestinal: Present: deferred Rectal Exam: deferred - Genitourinary Male genitourinary: deferred - Psychiatric Psychiatric: cooperative - Labs CBC & Chem 7: 10/19/18 04:57 10/19/18 04:57 Labs: Abnormal lab results 10/18/18 10/18/18 10/18/18 Range/Units 11:31 16:12 21:02 Hgb (11.8-15.2) gm/dl Hct (35.5-45.6) % [place] % (Auto) (0.0-7.3) % [place] # (0.0-0.8) K/mm3 Potassium (3.6-5.0) mmol/L Chloride (98-107) mmol/L Creatinine (0.8-1.5) mg/dL POC Glucose 182 H 168 H 324 H (70-105) Calcium (8.4-10.2) mg/dL 10/19/18 10/19/18 10/19/18 Range/Units 00:28 04:57 04:57 Hgb 11.4 L 11.7 L (11.8-15.2) gm/dl Hct 33.6 L 34.0 L (35.5-45.6) % [place] % (Auto) 14.0 H (0.0-7.3) % [place] # 1.2 H (0.0-0.8) K/mm3 Potassium 3.5 L (3.6-5.0) mmol/L Chloride 108.6 H (98-107) mmol/L Creatinine 0.6 L (0.8-1.5) mg/dL POC Glucose (70-105) Calcium 7.9 L (8.4-10.2) mg/dL 10/19/18 Range/Units 07:32 Hgb (11.8-15.2) gm/dl Hct (35.5-45.6) % [place] % (Auto) (0.0-7.3) % [place] # (0.0-0.8) K/mm3 Potassium (3.6-5.0) mmol/L Chloride (98-107) mmol/L Creatinine (0.8-1.5) mg/dL POC Glucose 159 H (70-105) Calcium (8.4-10.2) mg/dL Medications & Allergies - Medications Allergies/Adverse Reactions: Allergies No Known Allergies Allergy (Verified 10/31/14 11:20) Home Medications: Home Medications Medication Instructions Recorded Confirmed Last Taken Type Gabapentin [Neurontin] 90 mg PO Q8HR 04/22/15 04/22/15 04/21/15 History ALPRAZolam [Xanax TAB] 1 mg PO TID PRN #30 tablet 03/28/16 Unknown Rx Albuterol Sulfate [Ventolin HFA] 2 puff IH Q4H PRN #1 hfa.aer.ad 03/28/16 Unknown Rx Ciprofloxacin HCl [Ciprofloxacin 500 mg PO Q12HR #30 tab 03/28/16 Unknown Rx TAB] Citalopram [celeXA] 10 mg PO QDAY #30 tablet 03/28/16 Unknown Rx Nicotine [Habitrol] 14 mg TD QDAY #30 patch 03/28/16 Unknown Rx Sitagliptin Phos/Metformin HCl 1 tab PO QDAY #30 tbmp.24hr 03/28/16 Unknown Rx [Janumet XR 100-1,000 mg] oxyCODONE /ACETAMINOPHEN [Percocet 1 tab PO Q6H PRN #60 tablet 03/28/16 Unknown Rx 5/325 mg] Active Medications: Generic Name Dose Route Start Last Admin Trade Name Freq PRN Reason Stop Dose Admin Acetaminophen 650 mg 10/11/18 04:04 10/18/18 11:11 Tylenol PO 650 mg Q4H PRN Administration Pain MILD(1-3)/Fever >100.5/HOLLINS Acetaminophen 650 mg 10/18/18 11:53 Tylenol [place] Q4H PRN Pain, Mild(1-3)/Fever>100.5/HOLLINS Albuterol 2.5 mg 10/19/18 00:54 Proventil IH Q4HRT PRN Shortness Of Breath Albuterol/Ipratropium 1 ampul 10/19/18 08:00 10/19/18 07:43 Duoneb *Not For Prn Use* IH 1 ampul TIDRT ISAAC Administration Lipase/Protease/Amylase 1 each 10/18/18 13:43 Pancreaze 10,500 Unit FEEDTUBE PRN PRN For Clogged Feeding Tube Aspirin 325 mg 10/13/18 10:00 10/19/18 09:00 Aspirin PO 325 mg QDAY ISAAC Administration Dextrose 0 ml 10/11/18 03:57 10/11/18 10:18 D50w (25gm) Syringe IV 10 ml PRN PRN Administration Hypoglycemia Enoxaparin Sodium 40 mg 10/18/18 22:00 10/18/18 21:07 Lovenox SUB-Q 40 mg QDAY@2200 ISAAC Administration Famotidine 20 mg 10/15/18 10:00 10/19/18 09:01 Pepcid PO 20 mg BID ISAAC Administration Hydromorphone HCl 0.5 mg 10/18/18 15:40 10/19/18 09:13 Dilaudid IV 0.5 mg Q3H PRN Administration Pain , Severe (7-10) Hydrophilic Ointment 1 applic 10/11/18 14:00 Vaseline Lip Therapy TP Q2HR PRN Dry Lips Ampicillin Sodium/Sulbactam Sodium 3 gm in 100 mls @ 200 mls/hr 10/13/18 14:00 10/19/18 05:32 Unasyn/Ns 3 Gm/100 Ml IV 200 mls/hr Q6HR ISAAC Administration Protocol Insulin Human Regular 0 units 10/17/18 11:30 10/19/18 08:45 Humulin R SUB-Q Not Given ACHS [facility] Protocol Metoprolol Tartrate 25 mg 10/18/18 22:00 10/19/18 09:00 Lopressor PO 25 mg BID ISAAC Administration Metoprolol Tartrate 2.5 mg 10/18/18 18:51 10/18/18 22:19 Lopressor IV 2.5 mg Q6H PRN Administration Tachyarrhythmias Morphine Sulfate 2 mg 10/14/18 11:29 10/19/18 05:31 Morphine IV 2 mg Q4H PRN Administration severe pain 7-10 Multi-Ingred Cream/Lotion/Oil/Oint 1 applic 10/11/18 14:00 Artificial Tears Ophth Oint OU Q4HR PRN Dry Eye(s) Ondansetron HCl 4 mg 10/11/18 04:04 Zofran IV Q8H PRN Nausea And Vomiting Oxycodone/Acetaminophen 1 tab 10/18/18 13:45 Percocet 5/325 PO Q6H PRN Pain, Moderate (4-6) Quetiapine Fumarate 200 mg 10/14/18 22:00 10/18/18 21:16 Seroquel PO 200 mg QHS ISAAC Administration Simple Syrup 15 ml 10/18/18 13:43 Simple Syrup FEEDTUBE PRN PRN Hypoglycemia Simple Syrup 30 ml 10/18/18 13:43 Simple Syrup FEEDTUBE PRN PRN Hypoglycemia Sodium Bicarbonate 325 mg 10/18/18 13:43 Sodium Bicarbonate FEEDTUBE PRN PRN For Clogged Feeding Tube Sodium Chloride 10 ml 10/11/18 10:00 10/19/18 09:04 Sodium Chloride Flush Syringe 10 Ml IV 10 ml BID ISAAC Administration Sodium Chloride 10 ml 10/11/18 04:04 Sodium Chloride Flush Syringe 10 Ml IV PRN PRN LINE FLUSH
--- NOTE | 2018-10-19 10:27 | Progress Note ---
Assessment and Plan Assessment and plan: Possible acute/subacute right FT CVA - Initial CT head had no acute finding, 10/13/18 found unable to move left side - MRI brain showed numerous acute/subacute multilobar infarcts involving the cerebrum and cerebellum including Hemorrhagic transformation of the right frontal and biparietal lobes - was Not a candidate for tPA, cont to monitor off aspirin per teleneurology - plan for QUIQUE today, Speech recommended pureed diet Acute thrombus in bilateral lower extremities - showed on 10/13/18 LE arterial doppler - will not start heparin drip due to acute CVA - vascular consulted, medical Mx for now as not a candidate for surgical intervention as he can't be anticoagulated Severe sepsis with shock -Probably secondary to aspiration pneumonia -On IV broad-spectrum antibiotics with Unasyn for total 7 days -weaned off Levophed -Blood and sputum cultures negative so far Acute respiratory failure with hypoxia and hypercapnia -Probably secondary to acute COPD/asthma exacerbation and PNA -Required intubation on mechanical ventilator since admission -Pulmonology consulted, s/p extubation 10/16/18 - cont nebs , supplemental O2 as needed LLL pneumonia with mucous plugging on CTA, POA - likely from aspiration? cont abx unasun for total 7 days Hyperglycemia, not in DKA -s/p insulin drip, cont SSI for now, diabetic diet Acute toxic/metabolic encephalopathy, improved -Secondary to drug overdose versus sepsis/DKA vs acute CVA -Initial Head CT scan was negative negative - repeat CT head and MRI showed numerous acute/subacute multilobar infarcts involving the cerebrum and cerebellum including Hemorrhagic transformation of the largest infarcts that involve the right frontal and biparietal lobes - neurology following the patient Seizure -s/p IV lorazepam drip, will defer to neurology for AED - EEG pending Elevated troponin/NSTEMI type 2 -Probably secondary to demand ischemia from acute process/sepsis and underlying CHF -Echocardiogram for further evaluation - Ef 25-30% -Cardiology consulted, recommended medical Mx for now, Acute systolic CHF, Ef 25-30% - monitor ins/os, medical Mx for now, cardiology following ARF, due to vasomotor nephropathy, resolved -On IV fluid, will cont to monitor creatinine level Hyperkalemia, resolved Abnormal LFT -Probably due to sepsis and chronic hepatitis C virus infection -Abdominal US showed no sign of cirrhosis Severe protein calorie malnutrition -Dietitian consulted DVT prophylaxis with heparin and GI prophylaxis with famotidine Disposition: Patient will be transferred to tele Brief History: Patient is a 58-year-old male who was brought to the ED by EMS on account of altered mental status. It was reported that patient was found unresponsive by friends and family. Patient's last known well time was 10:30 PM on 10/10/18. He was given Narcan by EMS en route to the hospital with minimal response. Patient began to seize as EMS pulled into the hospital. Per report, family told EMS that the patient overdosed and has been using Dilaudid. He was intubated in the ER to protect airway, admitted to ICU for further evaluation. On 10/13/18 he noted unable to move left side with b/l cold LE. A stat CT head and arterial doppler ordered showed multiple embolic CVAs and b/l LE acute arterial thrombus. Tele neurology did not recommend tPA as he has h/o hemorrhagic stoke back on March required craniotomy at [place] per family. Vascular consulted for b/l LE thrombus recommended medical mx as he cannot be anticoagulate now. Plan for repeat CT head in 10-15 days to decide for anticoagulation. s/p extubation on 10/16/18. Planned for QUIQUE today, will follow result. CT head 10/11/18: There are chronic changes as described. There is no acute abnormality. . CT head 10/13/18: Hypodense areas seen in the right frontoparietal lobes are slightly worsened compared to prior exam, and cannot rule out involving acute/subacute infarcts versus possible underlying lesions. MRI should be considered for further evaluation. No intracranial hemorrhage visualized. MRI Brain 10/15/18: Numerous acute/subacute multilobar infarcts as described above involving the cerebrum and cerebellum. Hemorrhagic transformation of the largest infarcts that involve the right frontal and biparietal lobes and evidence of older hemorrhage at the margin of older cerebellar infarcts. Postsurgical changes in the posterio r fossa and several small acute/subacute cerebellar infarcts at the margin of larger late subacute infarct. LE arterial doppler 10/13/18: 1. Occlusive thrombus within the right external iliac artery extending to the right common femoral artery. 2. Occlusive thrombus within the left distal popliteal artery extending to the anterior and posterior tibial arteries which are also occluded. History Interval history: Patient seen and examined medical records reviewed Complaints of generalized weakness wants to go home Vital signs reviewed Hospitalist Physical - Constitutional Vitals: Temp Pulse Resp BP Pulse Ox 98.4 F 86 18 124/69 93 10/19/18 07:33 10/19/18 07:33 10/19/18 07:33 10/19/18 07:33 10/19/18 07:33 General appearance: Present: mild distress, cachectic, disheveled - EENT Eyes: Present: PERRL, EOM intact - Neck Neck: Present: supple, normal ROM - Respiratory Respiratory effort: normal Respiratory: bilateral: diminished, negative: rales, rhonchi, wheezing - Cardiovascular Rhythm: regular Heart Sounds: Present: S1 & S2 - Extremities Extremity abnormal: edema, erythema, pulses diminished - Abdominal General gastrointestinal: soft, non-tender, non-distended, normal bowel sounds - Integumentary Integumentary: Present: clear, warm - Psychiatric Psychiatric: appropriate mood/affect, cooperative - Neurologic Neurologic: moves all extremities Results - Labs CBC & Chem 7: 10/19/18 04:57 10/19/18 04:57 Labs: Laboratory Last Values WBC 8.3 K/mm3 (4.5-11.0) 10/19/18 00:28 RBC 3.70 M/mm3 (3.65-5.03) 10/19/18 00:28 Hgb 11.7 gm/dl (11.8-15.2) L 10/19/18 04:57 Hct 34.0 % (35.5-45.6) L 10/19/18 04:57 MCV 91 fl (84-94) 10/19/18 00:28 MCH 31 pg (28-32) 10/19/18 00:28 MCHC 34 % (32-34) 10/19/18 00:28 RDW 13.8 % (13.2-15.2) 10/19/18 00:28 Plt Count 283 K/mm3 (140-440) 10/19/18 04:57 Lymph % (Auto) 19.9 % (13.4-35.0) 10/19/18 00:28 Bracken % (Auto) 14.0 % (0.0-7.3) H 10/19/18 00:28 Eos % (Auto) 0.1 % (0.0-4.3) 10/19/18 00:28 Baso % (Auto) 0.3 % (0.0-1.8) 10/19/18 00:28 Lymph # 1.7 K/mm3 (1.2-5.4) 10/19/18 00:28 Bracken # 1.2 K/mm3 (0.0-0.8) H 10/19/18 00:28 Eos # 0.0 K/mm3 (0.0-0.4) 10/19/18 00: Baso # 0.0 K/mm3 (0.0-0.1) 10/19/18 00:28 Add Manual Diff Complete 10/12/18 04:04 Total Counted 100 10/12/18 04:04 Seg Neutrophils % 65.7 % (40.0-70.0) 10/19/18 00: Seg Neuts % (Manual) 32.0 % (40.0-70.0) L 10/12/18 04:04 39.0 % 10/12/18 04:04 19.0 % (13.4-35.0) 10/12/18 04:04 Reactive Lymphs % (Man) 0 % 10/12/18 04:04 8.0 % (0.0-7.3) H 10/12/18 04:04 0 % (0.0-4.3) 10/12/18 04:04 0 % (0.0-1.8) 10/12/18 04:04 2.0 % 10/12/18 04:04 0 % 10/12/18 04:04 0 % 10/12/18 04:04 0 % 10/12/18 04:04 Nucleated RBC % Not Reportable 10/12/18 04:04 Seg Neutrophils # 5.5 K/mm3 (1.8-7.7) 10/19/18 00:28 Seg Neutrophils # Man 7.8 K/mm3 (1.8-7.7) H 10/12/18 04:04 Band Neutrophils # 9.5 K/mm3 10/12/18 04:04 4.6 K/mm3 (1.2-5.4) 10/12/18 04:04 Abs React Lymphs (Man) 0.0 K/mm3 10/12/18 04:04 2.0 K/mm3 (0.0-0.8) H 10/12/18 04:04 0.0 K/mm3 (0.0-0.4) 10/12/18 04:04 0.0 K/mm3 (0.0-0.1) 10/12/18 04:04 0.5 K/mm3 10/12/18 04:04 0.0 K/mm3 10/12/18 04:04 0.0 K/mm3 10/12/18 04:04 Blast Cells # 0.0 K/mm3 10/12/18 04:04 Pathologist Review 10/11/18 00:16 WBC Morphology Not Reportable 10/12/18 04:04 Hypersegmented Neuts Not Reportable 10/12/18 04:04 Hyposegmented Neuts Not Reportable 10/12/18 04:04 Hypogranular Neuts Not Reportable 10/12/18 04:04 Not Reportable 10/12/18 04:04 Not Reportable 10/12/18 04:04 Not Reportable 10/12/18 04:04 Not Reportable 10/12/18 04:04 Not Reportable 10/12/18 04:04 Not Reportable 10/12/18 04:04 Appears normal 10/12/18 04:04 Not Reportable 10/12/18 04:04 Plt Clumps, EDTA Not Reportable 10/12/18 04:04 Not Reportable 10/12/18 04:04 Not Reportable 10/12/18 04:04 Not Reportable 10/12/18 04:04 Plt Morphology Comment Not Reportable 10/12/18 04:04 RBC Morphology Not Reportable 10/12/18 04:04 Dimorphic RBCs Not Reportable 10/12/18 04:04 Not Reportable 10/12/18 04:04 Not Reportable 10/12/18 04:04 Not Reportable 10/12/18 04:04 1+ 10/12/18 04:04 Not Reportable 10/12/18 04:04 Not Reportable 10/12/18 04:04 Not Reportable 10/12/18 04:04 Not Reportable 10/12/18 04:04 Not Reportable 10/12/18 04:04 Not Reportable 10/12/18 04:04 Not Reportable 10/12/18 04:04 Not Reportable 10/12/18 04:04 Not Reportable 10/12/18 04:04 Not Reportable 10/12/18 04:04 Not Reportable 10/12/18 04:04 Not Reportable 10/12/18 04:04 Not Reportable 10/12/18 04:04 Not Reportable 10/12/18 04:04 Not Reportable 10/12/18 04:04 Acanthocytes (Spur) Not Reportable 10/12/18 04:04 Rouleaux Not Reportable 10/12/18 04:04 Not Reportable 10/12/18 04:04 Not Reportable 10/12/18 04:04 Not Reportable 10/12/18 04:04 Not Reportable 10/12/18 04:04 Hem Pathologist Commnt No 10/12/18 04:04 PT 14.7 Sec. (12.2-14.9) 10/11/18 08:29 INR 1.08 (0.87-1.13) 10/11/18 08:29 APTT 24.1 Sec. (24.2-36.6) L 10/11/18 08:29 Heparin Anti-Xa, Unfract Negative (Negative) 10/15/18 12:00 POC ABG pH 7.393 (7.35-7.45) 10/16/18 12:51 POC ABG pCO2 48.9 (35-45) H 10/16/18 12:51 POC ABG pO2 92 (80-105) 10/16/18 12:51 POC ABG HCO3 29.8 (22-26 mml/L) 10/16/18 12:51 POC ABG Total CO2 31 (23-27mmol/L) 10/16/18 12:51 POC ABG O2 Sat 97 10/16/18 12:51 POC ABG Base Excess 5 ((-2) - (+3)mmol/L) 10/16/18 12:51 35 % 10/16/18 12:51 Sodium 144 mmol/L (137-145) 10/19/18 04:57 Potassium 3.5 mmol/L (3.6-5.0) L 10/19/18 04:57 Chloride 108.6 mmol/L (98-107) H 10/19/18 04:57 Carbon Dioxide 25 mmol/L (22-30) 10/19/18 04:57 14 mmol/L 10/19/18 04:57 BUN 11 mg/dL (9-20) 10/19/18 04:57 0.6 mg/dL (0.8-1.5) L 10/19/18 04:57 Estimated GFR > 60 ml/min 10/19/18 04:57 18 % 10/19/18 04:57 Glucose 93 mg/dL (75-100) 10/19/18 04:57 POC Glucose 159 (70-105) H 10/19/18 07:32 Lactic Acid 2.70 mmol/L (0.7-2.0) H* 10/11/18 12:30 Calcium 7.9 mg/dL (8.4-10.2) L 10/19/18 04:57 Phosphorus 4.90 mg/dL (2.5-4.5) H 10/11/18 04:14 Magnesium 1.80 mg/dL (1.7-2.3) 10/11/18 11:53 0.50 mg/dL (0.1-1.2) 10/14/18 09:45 AST 110 units/L (5-40) H 10/14/18 09:45 ALT 91 units/L (7-56) H 10/14/18 09:45 58 units/L (35-129) 10/14/18 09:45 3647 units/L (55-170) H 10/12/18 04:04 CK-MB (CK-2) 48.3 ng/mL (0.0-4.0) H 10/12/18 04:04 CK-MB (CK-2) Rel Index 1.3 (0-4) 10/12/18 04:04 0.816 ng/mL (0.00-0.029) H* 10/13/18 16:15 4.9 g/dL (6.3-8.2) L 10/14/18 09:45 2.0 g/dL (3.9-5) L 10/14/18 09:45 0.7 % 10/14/18 09:45 Triglycerides 87 mg/dL (2-149) 10/11/18 00:16 Cholesterol 73 mg/dL (50-199) 10/11/18 00:16 51 mg/dL (50-130) 10/11/18 00:16 19 mg/dL (40-59) L 10/11/18 00:16 3.84 % 10/11/18 00:16 See scanned report 10/15/18 12:00 Yellow (Yellow) 10/11/18 01:42 Cloudy (Clear) 10/11/18 01:42 6.0 (5.0-7.0) 10/11/18 01:42 Ur Specific [place] 1.011 (1.003-1.030) 10/11/18 01:42 100 mg/dl mg/dL (Negative) 10/11/18 01:42 >=500 mg/dL (Negative) 10/11/18 01:42 Neg mg/dL (Negative) 10/11/18 01:42 Mod (Negative) 10/11/18 01:42 Neg (Negative) 10/11/18 01:42 Neg (Negative) 10/11/18 01:42 4.0 mg/dL (<2.0) 10/11/18 01:42 Ur Leukocyte Esterase Neg (Negative) 10/11/18 01:42 5.0 /HPF (0.0-6.0) 10/11/18 01:42 2.0 /HPF (0.0-6.0) 10/11/18 01:42 U Epithel Cells (Auto) < 1.0 /HPF (0-13.0) 10/11/18 01:42 Amorphous Crystals 1+ 10/11/18 01:42 Few /HPF 10/11/18 01:42 2+ /HPF (DIESEL ENGINE ERECTOR) 10/11/18 01:42 Vancomycin Trough 8.3 ug/mL (5.0-20.0) 10/13/18 05:40 Salicylates < 0.3 mg/dL (2.8-20.0) L 10/11/18 00:16 Presumptive positive 10/11/18 01:42 Presumptive negative 10/11/18 01:42 Acetaminophen < 5.0 ug/mL (10.0-30.0) L 10/11/18 00:16 Ur Barbiturates Screen Presumptive negative 10/11/18 01:42 Ur Phencyclidine Scrn Presumptive negative 10/11/18 01:42 Ur Amphetamines Screen Presumptive positive 10/11/18 01:42 U Benzodiazepines Scrn Presumptive positive 10/11/18 01:42 Presumptive negative 10/11/18 01:42 U Marijuana (THC) Screen Presumptive negative 10/11/18 01:42 Disclamer 10/11/18 01:42 Plasma/Serum Alcohol < 0.01 % (0-0.07) 10/11/18 00:16 Heparin-induced Plt Ab Negative (Negative) 10/15/18 12:00 UF Heparin High Dose 0 % Release 10/15/18 12:00 AURELIO UFH Low Dose 0.1 0 % Release 10/15/18 12:00 AURELIO UFH Low Dose 0.5 0 % Release 10/15/18 12:00 Active Medications - Current Medications Current Medications: Generic Name Dose Route Start Last Admin Trade Name Freq PRN Reason Stop Dose Admin Acetaminophen 650 mg 10/11/18 04:04 10/18/18 11:11 Tylenol PO 650 mg Q4H PRN Administration Pain MILD(1-3)/Fever >100.5/HOLLINS Acetaminophen 650 mg 10/18/18 11:53 Tylenol MN Q4H PRN Pain, Mild(1-3)/Fever>100.5/HOLLINS Albuterol 2.5 mg 10/19/18 00:54 Proventil IH Q4HRT PRN Shortness Of Breath Albuterol/Ipratropium 1 ampul 10/19/18 08:00 10/19/18 07:43 Duoneb *Not For Prn Use* IH 1 ampul TIDRT ISAAC Administration Lipase/Protease/Amylase 1 each 10/18/18 13:43 Pancreazalvin Mcgrath 10,500 Unit FEEDTUBE PRN PRN For Clogged Feeding Tube Aspirin 325 mg 10/13/18 10:00 10/19/18 09:00 Aspirin PO 325 mg QDAY ISAAC Administration Dextrose 0 ml 10/11/18 03:57 10/11/18 10:18 D50w (25gm) Syringe IV 10 ml PRN PRN Administration Hypoglycemia Enoxaparin Sodium 40 mg 10/18/18 22:00 10/18/18 21:07 Lovenox SUB-Q 40 mg QDAY@2200 ISAAC Administration Famotidine 20 mg 10/15/18 10:00 10/19/18 09:01 Pepcid PO 20 mg BID ISAAC Administration Hydromorphone HCl 0.5 mg 10/18/18 15:40 10/19/18 09:13 Dilaudid IV 0.5 mg Q3H PRN Administration Pain , Severe (7-10) Hydrophilic Ointment 1 applic 10/11/18 14:00 Vaseline Lip Therapy TP Q2HR PRN Dry Lips Ampicillin Sodium/Sulbactam Sodium 3 gm in 100 mls @ 200 mls/hr 10/13/18 14:00 10/19/18 05:32 Unasyn/Ns 3 Gm/100 Ml IV 200 mls/hr Q6HR ISAAC Administration Protocol Insulin Human Regular 0 units 10/17/18 11:30 10/19/18 08:45 Humulin R SUB-Q Not Given ACHS COUNT INCLUDES THE [facility] Protocol Metoprolol Tartrate 25 mg 10/18/18 22:00 10/19/18 09:00 Lopressor PO 25 mg BID ISAAC Administration Metoprolol Tartrate 2.5 mg 10/18/18 18:51 10/18/18 22:19 Lopressor IV 2.5 mg Q6H PRN Administration Tachyarrhythmias Morphine Sulfate 2 mg 10/14/18 11:29 10/19/18 05:31 Morphine IV 2 mg Q4H PRN Administration severe pain 7-10 Multi-Ingred Cream/Lotion/Oil/Oint 1 applic 10/11/18 14:00 Artificial Tears Ophth Oint OU Q4HR PRN Dry Eye(s) Ondansetron HCl 4 mg 10/11/18 04:04 Zofran IV Q8H PRN Nausea And Vomiting Oxycodone/Acetaminophen 1 tab 10/18/18 13:45 Percocet 5/325 PO Q6H PRN Pain, Moderate (4-6) Quetiapine Fumarate 200 mg 10/14/18 22:00 10/18/18 21:16 Seroquel PO 200 mg QHS ISAAC Administration Simple Syrup 15 ml 10/18/18 13:43 Simple Syrup FEEDTUBE PRN PRN Hypoglycemia Simple Syrup 30 ml 10/18/18 13:43 Simple Syrup FEEDTUBE PRN PRN Hypoglycemia Sodium Bicarbonate 325 mg 10/18/18 13:43 Sodium Bicarbonate FEEDTUBE PRN PRN For Clogged Feeding Tube Sodium Chloride 10 ml 10/11/18 10:00 10/19/18 09:04 Sodium Chloride Flush Syringe 10 Ml IV 10 ml BID ISAAC Administration Sodium Chloride 10 ml 10/11/18 04:04 Sodium Chloride Flush Syringe 10 Ml IV PRN PRN LINE FLUSH Nutrition/Malnutrition Assess - Dietary Evaluation Nutrition/Malnutrition Findings: Nutrition Notes Start: 10/11/18 12:39 Freq: Status: Active Protocol: Document 10/18/18 15:31 RM (Rec: 10/18/18 15:41 RM [id number]) Nutrition Notes Initial or Follow up Reassessment Current Diagnosis Acute Kidney Injury,COPD, Diabetes,Hypertension,Stroke Other Pertinent Diagnosis Hepatitis C, cellulitis, Polysubstabce abuse, Opiate overdose, AMS Current Diet NPO Labs/Tests No recent labs Pertinent Medications Reviewed Height 6 ft 3 in Weight 66 kg [place] Body Weight (kg) 89.09 BMI 18.1 Subjective/Other Information Consulted for TF recommendation. Per nurse pt pulled out feeding tube. NPO in place earlier today. NPO previously recommended per bedside evaluation note 10/17/18. Nurse stated that pt was planned to be reassessed today. Pureed diet ordered later today. Burn Absent Trauma Absent #2 Nutrition Diagnosis Inadequate oral intake Diagnosis Progress(for reassessment Continues documentation) #1 Nutrition Diagnosis Malnutrition Diagnosis Progress(for reassessment Continues documentation) Is patient on ventilator? No Is Patient Ambulatory and/or Out of Bed No [facility] 1895.340 Kcal/Kg value to use for calculation 36 Approximate Energy Requirements Using 2376 kcal/Kg Calculation Used for Recommendations Kcal/kg Additional Notes Protein Needs: 79-99g (1.2-1. 5g/kg) Fluid Needs: 1 ml/kcal Nutrition Intervention Change Diet Order: Continue current Goal #1 Meet at least 75% of calorie and protein needs via PO intakes Anticipated Discharge Needs: Unknown at this time Follow-Up By: 10/22/18 Additional Comments Follow for PO and ONS intakes
--- NOTE | 2018-10-19 11:04 | Progress Note ---
Assessment and Plan Per swallow evaluation, patient is at significant risk for aspiration on every consistency. Recommend to maintain NPO. Icechips are not recommended. Will reassess in 24 hours.Cont IV lopressor and convert to PO once enteral intake is resumed. Also consider initiation of ACEI/ARB if BPs and renal function permit. Can consider stress test once medically stabilized and once mental status improves. Will follow peripherally over the weekend. The patient has been seen in conjunction with Dr. Sher Green who agrees with the assessment and plan of care. - Patient Problems (1) Altered mental state Current Visit: Yes Status: Acute Qualifiers: Altered mental status type: unspecified Qualified Code(s): R41.82 - Altered mental status, unspecified (2) Opiate overdose Current Visit: Yes Status: Suspected (3) Acute CVA (cerebrovascular accident) Current Visit: Yes Status: Acute (4) Cardiomyopathy Current Visit: Yes Status: Chronic (5) Paroxysmal atrial fibrillation Current Visit: Yes Status: Acute (6) Seizure Current Visit: Yes Status: Acute (7) Acute respiratory failure Current Visit: Yes Status: Acute (8) NSTEMI (non-ST elevated myocardial infarction) Current Visit: Yes Status: Acute (9) 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 Current Visit: Yes Status: Chronic (10) Hypotension Current Visit: Yes Status: Resolved Qualifiers: Hypotension type: unspecified hypotension type Qualified Code(s): I95.9 - Hypotension, unspecified (11) Acute renal insufficiency Current Visit: Yes Status: Acute (12) Lactic acid acidosis Current Visit: Yes Status: Acute (13) Diabetes mellitus with hyperglycemia Current Visit: Yes Status: Acute (14) Elevated liver enzymes Current Visit: Yes Status: Acute (15) History of hepatitis Current Visit: Yes Status: Chronic (16) History of rheumatic fever as a child Current Visit: Yes Status: Chronic (17) Polysubstance abuse Current Visit: Yes Status: Chronic (18) Tobacco use Current Visit: Yes Status: Chronic (19) Sepsis Current Visit: Yes Status: Acute Qualifiers: Sepsis type: sepsis due to unspecified organism Qualified Code(s): A41.9 - Sepsis, unspecified organism (20) Arterial thrombosis Current Visit: Yes Status: Acute Subjective Date of service: 10/19/18 Principal diagnosis: Ac hypercapnic hypoxemic Resp failure; Drug OD; AE-COPD; NINOSKA; Seizures Interval history: Pt resting in bed, no current cardiac complaints. remains confused. Objective Last Vital Signs Temp 98.4 F 10/19/18 07:33 Pulse 86 10/19/18 07:33 Resp 18 10/19/18 07:33 BP 124/69 10/19/18 07:33 Pulse Ox 93 10/19/18 07:33 - Physical Examination General: No Apparent Distress Neck: Positive: neck supple Cardiac: Positive: Reg Rate and Rhythm, S1/S2 Lungs: Positive: Decreased Breath Sounds Neuro: Positive: Grossly Intact Abdomen: Positive: Soft. Negative: Tender Skin: Negative: Rash Extremities: Present: Other (chronic skin changes noted bilaterally. Patient has mottling of the left leg just proximal to the ankle) - Labs and Meds CBC 10/19/18 10/19/18 Range/Units 00:28 04:57 WBC 8.3 (4.5-11.0) K/mm3 RBC 3.70 (3.65-5.03) M/mm3 Hgb 11.4 L 11.7 L (11.8-15.2) gm/dl Hct 33.6 L 34.0 L (35.5-45.6) % Plt Count 262 283 (140-440) K/mm3 Lymph # 1.7 (1.2-5.4) K/mm3 Mcminn # 1.2 H (0.0-0.8) K/mm3 Eos # 0.0 (0.0-0.4) K/mm3 Baso # 0.0 (0.0-0.1) K/mm3 Comprehensive Metabolic Panel 10/19/18 Range/Units 04:57 Sodium 144 (137-145) mmol/L Potassium 3.5 L (3.6-5.0) mmol/L Chloride 108.6 H (98-107) mmol/L Carbon Dioxide 25 (22-30) mmol/L BUN 11 (9-20) mg/dL Creatinine 0.6 L (0.8-1.5) mg/dL Glucose 93 (75-100) mg/dL Calcium 7.9 L (8.4-10.2) mg/dL - Imaging and Cardiology EKG: report reviewed, image reviewed Echo: report reviewed (TDS, mild LVH, severe global hypokinesis of LV, unable to estimate LVEF, trace TR. ) - EKG Sinus rhythms and dysrhythmias: sinus rhythm - Allied health notes Allied health notes reviewed: nursing
[2018-10-19] MEDS: LOVENOX SUB-Q SCH (21:09)
[2018-10-20] MEDS: DUONEB *Not for PRN Use IH SCH ×4 (07:25→19:54)
[2018-10-20] MEDS: MORPHINE IV PRN ×2 (08:23→18:33)
[2018-10-20] MEDS: HumuLIN R SUB-Q SCH ×4 (08:25→22:13)
[2018-10-20] MEDS: ASPIRIN PO SCH (09:49)
[2018-10-20] MEDS: SODIUM CHLORIDE FLUSH SYRINGE 10 ML IV SCH ×2 (09:52→22:12)
[2018-10-20] MEDS: LOPRESSOR PO SCH ×2 (09:52→22:20)
[2018-10-20] MEDS: PEPCID PO SCH ×2 (09:53→22:11)
--- NOTE | 2018-10-20 10:04 | Progress Note ---
Assessment and Plan Acute hypoxemic respiratory failure, on mechanical ventilator support. Drug overdose. Acute chronic obstructive pulmonary disease exacerbation. Witnessed seizure en route. Acute kidney injury. Leukocytosis. Hypercapnia. Hyperkalemia. Metabolic acidosis. Lactic acidosis. Non-ST elevation myocardial infarction. Elevated serum transaminases. 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 Target glucose of 140-180 mg/dL - Maintenance of sleep -wake cycle - Mobility protocol for pressure ulcer prophylaxis - Influenza and pneumonia vaccination per protocol ...... re-evaluate in am & prn Subjective Date of service: 10/20/18 Principal diagnosis: Ac hypercapnic hypoxemic Resp failure; Drug OD; AE-COPD; NINOSKA; Seizures Interval history: Patient is seen today for: Acute hypoxemic respiratory failure, on mechanical ventilator support; Drug overdose; Acute chronic obstructive pulmonary disease exacerbation; Witnessed seizure en route; Acute kidney injury; Leukocytosis; Hypercapnia. Seen and examined at bedside; 24-hour events reviewed; nursing and respiratory care staff consulted; no adverse overnight events reported to me; more alert and appropriate; of supplemental oxygen; denies acute chest pains or palpitations; still with left hemiparesis and left leg gangrene Objective Vital Signs - 12hr 10/19/18 10/20/18 10/20/18 23:22 00:09 04:00 Temperature 98.2 F Pulse Rate 77 Respiratory 15 Rate Blood Pressure 110/54 Blood Pressure 103/52 [Right] O2 Sat by Pulse 96 97 Oximetry 10/20/18 10/20/18 10/20/18 04:13 07:53 09:52 Temperature 98.3 F 97.9 F Pulse Rate 81 101 H 101 H Respiratory 16 18 Rate Blood Pressure 115/71 Blood Pressure [Right] O2 Sat by Pulse 94 87 Oximetry Constitutional: no acute distress, other (middle aged but chronically ill looking CM; Atraumatic) Eyes: non-icteric ENT: oropharynx moist, other (mallampati 2) Neck: supple, no lymphadenopathy, no JVD Effort: normal Ascultation: Bilateral: diminished breath sounds, rhonchi Percussion: Bilateral: not dull Cardiovascular: irregular rhythm, other (No R/M) Gastrointestinal: normoactive bowel sounds, soft, non-tender, non-distended Integumentary: other (poor turgor) Extremities: no edema, no ischemia or petechiae, other (cool left leg campbell-down; with digital gangrene of left foot also) Neurologic: normal mental status, pupils equal and round, other (Left hemiparesis, improving) Psychiatric: mood appropriate, affect normal CBC and BMP: 10/21/18 04:59 10/21/18 04:59 ABG, PT/INR, D-dimer: ABG POC ABG pH 7.393 (7.35-7.45) 10/16/18 12:51 POC ABG pCO2 48.9 (35-45) H 10/16/18 12:51 POC ABG pO2 92 (80-105) 10/16/18 12:51 POC ABG HCO3 29.8 (22-26 mml/L) 10/16/18 12:51 POC ABG Total CO2 31 (23-27mmol/L) 10/16/18 12:51 POC ABG O2 Sat 97 10/16/18 12:51 PT/INR, D-dimer PT 14.7 Sec. (12.2-14.9) 10/11/18 08:29 INR 1.08 (0.87-1.13) 10/11/18 08:29 Abnormal lab findings: Abnormal Labs 10/11/18 10/11/18 10/11/18 00:16 00:16 00:16 WBC 20.1 H Hgb Hct MCV 98 H RDW 15.4 H Plt Count [place] % (Auto) [place] # Seg Neutrophils % Seg Neuts % (Manual) Lymphocytes % (Manual) 5.0 L Monocytes % (Manual) 25.0 H Seg Neutrophils # Seg Neutrophils # Man 9.2 H Lymphocytes # (Manual) 1.0 L Monocytes # (Manual) 5.0 H APTT POC ABG pH POC ABG pCO2 POC ABG pO2 Sodium Potassium 5.8 H Chloride Carbon Dioxide 17 L BUN Creatinine 2.2 H Glucose 348 H POC Glucose Lactic Acid 13.70 H* Calcium 7.7 L Phosphorus Total Bilirubin 1.50 H AST 179 H ALT 110 H Total Creatine Kinase 324 H CK-MB (CK-2) Troponin T 0.257 H* Total Protein 5.9 L Albumin 2.9 L HDL Cholesterol 19 L Salicylates Acetaminophen 10/11/18 10/11/18 10/11/18 00:16 00:16 01:21 WBC Hgb Hct MCV RDW Plt Count [place] % (Auto) [place] # Seg Neutrophils % Seg Neuts % (Manual) Lymphocytes % (Manual) Monocytes % (Manual) Seg Neutrophils # Seg Neutrophils # Man Lymphocytes # (Manual) Monocytes # (Manual) APTT POC ABG pH 7.110 L POC ABG pCO2 50.3 H POC ABG pO2 65 L Sodium Potassium Chloride Carbon Dioxide BUN Creatinine Glucose POC Glucose Lactic Acid Calcium Phosphorus Total Bilirubin AST ALT Total Creatine Kinase CK-MB (CK-2) Troponin T Total Protein Albumin HDL Cholesterol Salicylates < 0.3 L Acetaminophen < 5.0 L 10/11/18 10/11/18 10/11/18 01:22 03:27 04:14 WBC Hgb Hct MCV RDW Plt Count [place] % (Auto) [place] # Seg Neutrophils % Seg Neuts % (Manual) Lymphocytes % (Manual) Monocytes % (Manual) Seg Neutrophils # Seg Neutrophils # Man Lymphocytes # (Manual) Monocytes # (Manual) APTT POC ABG pH POC ABG pCO2 POC ABG pO2 Sodium Potassium Chloride Carbon Dioxide BUN Creatinine Glucose POC Glucose Lactic Acid 8.50 H* 4.10 H* Calcium Phosphorus 4.90 H Total Bilirubin AST ALT Total Creatine Kinase CK-MB (CK-2) Troponin T Total Protein Albumin HDL Cholesterol Salicylates Acetaminophen 10/11/18 10/11/18 10/11/18 04:14 04:14 04:14 WBC Hgb Hct MCV RDW Plt Count [place] % (Auto) [place] # Seg Neutrophils % Seg Neuts % (Manual) Lymphocytes % (Manual) Monocytes % (Manual) Seg Neutrophils # Seg Neutrophils # Man Lymphocytes # (Manual) Monocytes # (Manual) APTT POC ABG pH POC ABG pCO2 POC ABG pO2 Sodium Potassium 5.6 H Chloride Carbon Dioxide 19 L BUN Creatinine 1.6 H Glucose 329 H POC Glucose 328 H Lactic Acid Calcium 7.3 L Phosphorus Total Bilirubin AST ALT Total Creatine Kinase CK-MB (CK-2) Troponin T 1.130 H* D Total Protein Albumin HDL Cholesterol Salicylates Acetaminophen 10/11/18 10/11/18 10/11/18 05:10 05:32 05:58 WBC Hgb Hct MCV RDW Plt Count [place] % (Auto) [place] # Seg Neutrophils % Seg Neuts % (Manual) Lymphocytes % (Manual) Monocytes % (Manual) Seg Neutrophils # Seg Neutrophils # Man Lymphocytes # (Manual) Monocytes # (Manual) APTT POC ABG pH 7.259 L POC ABG pCO2 45.6 H POC ABG pO2 Sodium Potassium Chloride 108.6 H Carbon Dioxide 20 L BUN Creatinine 1.8 H Glucose 269 H POC Glucose 273 H Lactic Acid Calcium 7.0 L Phosphorus Total Bilirubin AST ALT Total Creatine Kinase CK-MB (CK-2) Troponin T Total Protein Albumin HDL Cholesterol Salicylates Acetaminophen 10/11/18 10/11/18 10/11/18 05:58 06:39 07:00 WBC Hgb Hct MCV RDW Plt Count [place] % (Auto) [place] # Seg Neutrophils % Seg Neuts % (Manual) Lymphocytes % (Manual) Monocytes % (Manual) Seg Neutrophils # Seg Neutrophils # Man Lymphocytes # (Manual) Monocytes # (Manual) APTT POC ABG pH POC ABG pCO2 POC ABG pO2 Sodium Potassium Chloride Carbon Dioxide BUN Creatinine Glucose POC Glucose 247 H Lactic Acid 3.20 H* 3.30 H* Calcium Phosphorus Total Bilirubin AST ALT Total Creatine Kinase CK-MB (CK-2) Troponin T Total Protein Albumin HDL Cholesterol Salicylates Acetaminophen 10/11/18 10/11/18 10/11/18 07:00 07:30 07:36 WBC Hgb Hct MCV RDW Plt Count [place] % (Auto) [place] # Seg Neutrophils % Seg Neuts % (Manual) Lymphocytes % (Manual) Monocytes % (Manual) Seg Neutrophils # Seg Neutrophils # Man Lymphocytes # (Manual) Monocytes # (Manual) APTT POC ABG pH POC ABG pCO2 POC ABG pO2 Sodium 146 H Potassium Chloride 112.1 H Carbon Dioxide 21 L BUN Creatinine 1.6 H Glucose 218 H POC Glucose Lactic Acid 3.20 H* Calcium 7.0 L Phosphorus Total Bilirubin AST ALT Total Creatine Kinase CK-MB (CK-2) Troponin T 1.020 H* Total Protein Albumin HDL Cholesterol Salicylates Acetaminophen 10/11/18 10/11/18 10/11/18 07:43 08:29 08:29 WBC Hgb 16.2 H Hct 49.9 H D MCV RDW Plt Count [place] % (Auto) [place] # Seg Neutrophils % Seg Neuts % (Manual) Lymphocytes % (Manual) Monocytes % (Manual) Seg Neutrophils # Seg Neutrophils # Man Lymphocytes # (Manual) Monocytes # (Manual) APTT POC ABG pH POC ABG pCO2 POC ABG pO2 Sodium Potassium Chloride Carbon Dioxide BUN Creatinine Glucose POC Glucose 174 H Lactic Acid 3.90 H* Calcium Phosphorus Total Bilirubin AST ALT Total Creatine Kinase CK-MB (CK-2) Troponin T Total Protein Albumin HDL Cholesterol Salicylates Acetaminophen 10/11/18 10/11/18 10/11/18 08:29 08:42 11:05 WBC Hgb Hct MCV RDW Plt Count [place] % (Auto) [place] # Seg Neutrophils % Seg Neuts % (Manual) Lymphocytes % (Manual) Monocytes % (Manual) Seg Neutrophils # Seg Neutrophils # Man Lymphocytes # (Manual) Monocytes # (Manual) APTT 24.1 L POC ABG pH POC ABG pCO2 POC ABG pO2 Sodium 147 H Potassium Chloride 113.3 H Carbon Dioxide 21 L BUN Creatinine 1.7 H Glucose 119 H POC Glucose 164 H Lactic Acid Calcium 7.7 L Phosphorus Total Bilirubin AST ALT Total Creatine Kinase CK-MB (CK-2) Troponin T Total Protein Albumin HDL Cholesterol Salicylates Acetaminophen 10/11/18 10/11/18 10/11/18 11:05 11:06 12:30 WBC Hgb Hct MCV RDW Plt Count [place] % (Auto) [place] # Seg Neutrophils % Seg Neuts % (Manual) Lymphocytes % (Manual) Monocytes % (Manual) Seg Neutrophils # Seg Neutrophils # Man Lymphocytes # (Manual) Monocytes # (Manual) APTT POC ABG pH POC ABG pCO2 POC ABG pO2 Sodium 148 H Potassium Chloride 113.4 H Carbon Dioxide 21 L BUN Creatinine 1.6 H Glucose 119 H POC Glucose 116 H Lactic Acid 3.20 H* Calcium 7.5 L Phosphorus Total Bilirubin AST ALT Total Creatine Kinase CK-MB (CK-2) Troponin T Total Protein Albumin HDL Cholesterol Salicylates Acetaminophen 10/11/18 10/11/18 10/11/18 12:30 13:16 13:25 WBC Hgb Hct MCV RDW Plt Count [place] % (Auto) [place] # Seg Neutrophils % Seg Neuts % (Manual) Lymphocytes % (Manual) Monocytes % (Manual) Seg Neutrophils # Seg Neutrophils # Man Lymphocytes # (Manual) Monocytes # (Manual) APTT POC ABG pH 7.247 L POC ABG pCO2 48.4 H POC ABG pO2 Sodium Potassium Chloride Carbon Dioxide BUN Creatinine Glucose POC Glucose 112 H Lactic Acid 2.70 H* Calcium Phosphorus Total Bilirubin AST ALT Total Creatine Kinase CK-MB (CK-2) Troponin T Total Protein Albumin HDL Cholesterol Salicylates Acetaminophen 10/11/18 10/11/18 10/11/18 14:41 15:27 16:13 WBC Hgb Hct MCV RDW Plt Count [place] % (Auto) [place] # Seg Neutrophils % Seg Neuts % (Manual) Lymphocytes % (Manual) Monocytes % (Manual) Seg Neutrophils # Seg Neutrophils # Man Lymphocytes # (Manual) Monocytes # (Manual) APTT POC ABG pH POC ABG pCO2 POC ABG pO2 Sodium Potassium Chloride Carbon Dioxide BUN Creatinine Glucose POC Glucose 127 H 141 H 134 H Lactic Acid Calcium Phosphorus Total Bilirubin AST ALT Total Creatine Kinase CK-MB (CK-2) Troponin T Total Protein Albumin HDL Cholesterol Salicylates Acetaminophen 10/11/18 10/11/18 10/11/18 17:18 18:23 19:38 WBC Hgb Hct MCV RDW Plt Count [place] % (Auto) [place] # Seg Neutrophils % Seg Neuts % (Manual) Lymphocytes % (Manual) Monocytes % (Manual) Seg Neutrophils # Seg Neutrophils # Man Lymphocytes # (Manual) Monocytes # (Manual) APTT POC ABG pH POC ABG pCO2 POC ABG pO2 Sodium 148 H Potassium Chloride 112.7 H Carbon Dioxide BUN 23 H Creatinine Glucose 143 H POC Glucose 132 H 129 H Lactic Acid Calcium 7.9 L Phosphorus Total Bilirubin AST ALT Total Creatine Kinase CK-MB (CK-2) Troponin T Total Protein Albumin HDL Cholesterol Salicylates Acetaminophen 10/11/18 10/11/18 10/11/18 20:19 20:36 21:01 WBC Hgb Hct MCV RDW Plt Count [place] % (Auto) [place] # Seg Neutrophils % Seg Neuts % (Manual) Lymphocytes % (Manual) Monocytes % (Manual) Seg Neutrophils # Seg Neutrophils # Man Lymphocytes # (Manual) Monocytes # (Manual) APTT POC ABG pH 7.281 L POC ABG pCO2 POC ABG pO2 Sodium Potassium Chloride Carbon Dioxide BUN Creatinine Glucose POC Glucose 129 H 151 H Lactic Acid Calcium Phosphorus Total Bilirubin AST ALT Total Creatine Kinase CK-MB (CK-2) Troponin T Total Protein Albumin HDL Cholesterol Salicylates Acetaminophen 10/11/18 10/11/18 10/12/18 22:04 23:15 01:18 WBC Hgb Hct MCV RDW Plt Count [place] % (Auto) [place] # Seg Neutrophils % Seg Neuts % (Manual) Lymphocytes % (Manual) Monocytes % (Manual) Seg Neutrophils # Seg Neutrophils # Man Lymphocytes # (Manual) Monocytes # (Manual) APTT POC ABG pH POC ABG pCO2 POC ABG pO2 Sodium Potassium Chloride Carbon Dioxide BUN Creatinine Glucose POC Glucose 147 H 143 H 158 H Lactic Acid Calcium Phosphorus Total Bilirubin AST ALT Total Creatine Kinase CK-MB (CK-2) Troponin T Total Protein Albumin HDL Cholesterol Salicylates Acetaminophen 10/12/18 10/12/18 10/12/18 02:13 03:18 04:04 WBC Hgb Hct MCV RDW Plt Count [place] % (Auto) [place] # Seg Neutrophils % Seg Neuts % (Manual) Lymphocytes % (Manual) Monocytes % (Manual) Seg Neutrophils # Seg Neutrophils # Man Lymphocytes # (Manual) Monocytes # (Manual) APTT POC ABG pH POC ABG pCO2 POC ABG pO2 Sodium 147 H Potassium Chloride 111.1 H Carbon Dioxide BUN 30 H Creatinine 2.0 H Glucose 154 H POC Glucose 148 H 142 H Lactic Acid Calcium 8.1 L Phosphorus Total Bilirubin AST 269 H ALT 204 H Total Creatine Kinase 3647 H CK-MB (CK-2) 48.3 H Troponin T 2.230 H* D Total Protein 5.8 L Albumin 2.6 L HDL Cholesterol Salicylates Acetaminophen 10/12/18 10/12/18 10/12/18 04:04 04:08 04:19 WBC 24.4 H Hgb Hct MCV RDW Plt Count [place] % (Auto) [place] # Seg Neutrophils % Seg Neuts % (Manual) 32.0 L Lymphocytes % (Manual) Monocytes % (Manual) 8.0 H Seg Neutrophils # Seg Neutrophils # Man 7.8 H Lymphocytes # (Manual) Monocytes # (Manual) 2.0 H APTT POC ABG pH 7.317 L POC ABG pCO2 49.3 H POC ABG pO2 Sodium Potassium Chloride Carbon Dioxide BUN Creatinine Glucose POC Glucose 143 H Lactic Acid Calcium Phosphorus Total Bilirubin AST ALT Total Creatine Kinase CK-MB (CK-2) Troponin T Total Protein Albumin HDL Cholesterol Salicylates Acetaminophen 10/12/18 10/12/18 10/12/18 05:29 06:52 08:09 WBC Hgb Hct MCV RDW Plt Count [place] % (Auto) [place] # Seg Neutrophils % Seg Neuts % (Manual) Lymphocytes % (Manual) Monocytes % (Manual) Seg Neutrophils # Seg Neutrophils # Man Lymphocytes # (Manual) Monocytes # (Manual) APTT POC ABG pH 7.322 L POC ABG pCO2 46.5 H POC ABG pO2 Sodium Potassium Chloride Carbon Dioxide BUN Creatinine Glucose POC Glucose 196 H 226 H Lactic Acid Calcium Phosphorus Total Bilirubin AST ALT Total Creatine Kinase CK-MB (CK-2) Troponin T Total Protein Albumin HDL Cholesterol Salicylates Acetaminophen 10/12/18 10/12/18 10/12/18 08:38 10:03 15:50 WBC Hgb Hct MCV RDW Plt Count [place] % (Auto) [place] # Seg Neutrophils % Seg Neuts % (Manual) Lymphocytes % (Manual) Monocytes % (Manual) Seg Neutrophils # Seg Neutrophils # Man Lymphocytes # (Manual) Monocytes # (Manual) APTT POC ABG pH POC ABG pCO2 POC ABG pO2 Sodium Potassium Chloride Carbon Dioxide BUN Creatinine Glucose POC Glucose 138 H 148 H 221 H Lactic Acid Calcium Phosphorus Total Bilirubin AST ALT Total Creatine Kinase CK-MB (CK-2) Troponin T Total Protein Albumin HDL Cholesterol Salicylates Acetaminophen 10/12/18 10/12/18 10/12/18 18:39 20:56 21:34 WBC Hgb Hct MCV RDW Plt Count [place] % (Auto) [place] # Seg Neutrophils % Seg Neuts % (Manual) Lymphocytes % (Manual) Monocytes % (Manual) Seg Neutrophils # Seg Neutrophils # Man Lymphocytes # (Manual) Monocytes # (Manual) APTT POC ABG pH 7.336 L POC ABG pCO2 46.0 H POC ABG pO2 Sodium Potassium Chloride Carbon Dioxide BUN Creatinine Glucose POC Glucose 255 H 260 H Lactic Acid Calcium Phosphorus Total Bilirubin AST ALT Total Creatine Kinase CK-MB (CK-2) Troponin T Total Protein Albumin HDL Cholesterol Salicylates Acetaminophen 10/13/18 10/13/18 10/13/18 02:29 05:09 05:40 WBC 17.0 H Hgb Hct MCV RDW Plt Count [place] % (Auto) 9.2 H [place] # 1.6 H Seg Neutrophils % 76.2 H Seg Neuts % (Manual) Lymphocytes % (Manual) Monocytes % (Manual) Seg Neutrophils # 12.9 H Seg Neutrophils # Man Lymphocytes # (Manual) Monocytes # (Manual) APTT POC ABG pH POC ABG pCO2 POC ABG pO2 Sodium Potassium Chloride Carbon Dioxide BUN Creatinine Glucose POC Glucose 216 H 249 H Lactic Acid Calcium Phosphorus Total Bilirubin AST ALT Total Creatine Kinase CK-MB (CK-2) Troponin T Total Protein Albumin HDL Cholesterol Salicylates Acetaminophen 10/13/18 10/13/18 10/13/18 05:40 05:40 09:46 WBC Hgb Hct MCV RDW Plt Count [place] % (Auto) [place] # Seg Neutrophils % Seg Neuts % (Manual) Lymphocytes % (Manual) Monocytes % (Manual) Seg Neutrophils # Seg Neutrophils # Man Lymphocytes # (Manual) Monocytes # (Manual) APTT POC ABG pH POC ABG pCO2 POC ABG pO2 Sodium 146 H Potassium Chloride 109.8 H Carbon Dioxide BUN 35 H Creatinine Glucose 245 H POC Glucose 235 H Lactic Acid Calcium 7.9 L Phosphorus Total Bilirubin AST ALT Total Creatine Kinase CK-MB (CK-2) Troponin T 0.952 H* D Total Protein Albumin HDL Cholesterol Salicylates Acetaminophen 10/13/18 10/13/18 10/13/18 13:58 16:15 17:30 WBC Hgb Hct MCV RDW Plt Count [place] % (Auto) [place] # Seg Neutrophils % Seg Neuts % (Manual) Lymphocytes % (Manual) Monocytes % (Manual) Seg Neutrophils # Seg Neutrophils # Man Lymphocytes # (Manual) Monocytes # (Manual) APTT POC ABG pH POC ABG pCO2 51.2 H POC ABG pO2 Sodium Potassium Chloride Carbon Dioxide BUN Creatinine Glucose POC Glucose 139 H Lactic Acid Calcium Phosphorus Total Bilirubin AST ALT Total Creatine Kinase CK-MB (CK-2) Troponin T 0.816 H* Total Protein Albumin HDL Cholesterol Salicylates Acetaminophen 10/13/18 10/14/18 10/14/18 21:25 01:49 04:52 WBC Hgb Hct MCV RDW Plt Count [place] % (Auto) [place] # Seg Neutrophils % Seg Neuts % (Manual) Lymphocytes % (Manual) Monocytes % (Manual) Seg Neutrophils # Seg Neutrophils # Man Lymphocytes # (Manual) Monocytes # (Manual) APTT POC ABG pH POC ABG pCO2 56.0 H POC ABG pO2 Sodium Potassium Chloride Carbon Dioxide BUN Creatinine Glucose POC Glucose 205 H 166 H Lactic Acid Calcium Phosphorus Total Bilirubin AST ALT Total Creatine Kinase CK-MB (CK-2) Troponin T Total Protein Albumin HDL Cholesterol Salicylates Acetaminophen 10/14/18 10/14/1810/14/19 05:32 09:45 09:45 WBC Hgb 11.4 L Hct 34.5 L MCV RDW Plt Count 139 L [place] % (Auto) [place] # Seg Neutrophils % Seg Neuts % (Manual) Lymphocytes % (Manual) Monocytes % (Manual) Seg Neutrophils # Seg Neutrophils # Man Lymphocytes # (Manual) Monocytes # (Manual) APTT POC ABG pH POC ABG pCO2 POC ABG pO2 Sodium 148 H Potassium Chloride 107.3 H Carbon Dioxide 34 H D BUN Creatinine 0.7 L D Glucose 191 H POC Glucose 164 H Lactic Acid Calcium 7.3 L Phosphorus Total Bilirubin AST 110 H ALT 91 H Total Creatine Kinase CK-MB (CK-2) Troponin T Total Protein 4.9 L Albumin 2.0 L HDL Cholesterol Salicylates Acetaminophen 10/14/18 10/14/18 10/14/18 10:54 12:20 18:30 WBC Hgb Hct MCV RDW Plt Count [place] % (Auto) [place] # Seg Neutrophils % Seg Neuts % (Manual) Lymphocytes % (Manual) Monocytes % (Manual) Seg Neutrophils # Seg Neutrophils # Man Lymphocytes # (Manual) Monocytes # (Manual) APTT POC ABG pH POC ABG pCO2 POC ABG pO2 Sodium Potassium Chloride Carbon Dioxide BUN Creatinine Glucose POC Glucose 173 H 158 H 108 H Lactic Acid Calcium Phosphorus Total Bilirubin AST ALT Total Creatine Kinase CK-MB (CK-2) Troponin T Total Protein Albumin HDL Cholesterol Salicylates Acetaminophen 10/14/18 10/15/18 10/15/18 21:54 02:12 04:19 WBC Hgb Hct MCV RDW Plt Count [place] % (Auto) [place] # Seg Neutrophils % Seg Neuts % (Manual) Lymphocytes % (Manual) Monocytes % (Manual) Seg Neutrophils # Seg Neutrophils # Man Lymphocytes # (Manual) Monocytes # (Manual) APTT POC ABG pH 7.491 H POC ABG pCO2 45.1 H POC ABG pO2 Sodium Potassium Chloride Carbon Dioxide BUN Creatinine Glucose POC Glucose 110 H 164 H Lactic Acid Calcium Phosphorus Total Bilirubin AST ALT Total Creatine Kinase CK-MB (CK-2) Troponin T Total Protein Albumin HDL Cholesterol Salicylates Acetaminophen 10/15/18 10/15/18 10/15/18 04:55 05:43 06:20 WBC Hgb 11.7 L Hct 34.7 L MCV RDW Plt Count [place] % (Auto) [place] # Seg Neutrophils % Seg Neuts % (Manual) Lymphocytes % (Manual) Monocytes % (Manual) Seg Neutrophils # Seg Neutrophils # Man Lymphocytes # (Manual) Monocytes # (Manual) APTT POC ABG pH POC ABG pCO2 47.3 H POC ABG pO2 78 L Sodium Potassium Chloride Carbon Dioxide BUN Creatinine Glucose POC Glucose 250 H Lactic Acid Calcium Phosphorus Total Bilirubin AST ALT Total Creatine Kinase CK-MB (CK-2) Troponin T Total Protein Albumin HDL Cholesterol Salicylates Acetaminophen 10/15/18 10/15/18 10/15/18 12:00 12:00 12:11 WBC Hgb 11.5 L Hct 34.0 L MCV RDW Plt Count [place] % (Auto) [place] # Seg Neutrophils % Seg Neuts % (Manual) Lymphocytes % (Manual) Monocytes % (Manual) Seg Neutrophils # Seg Neutrophils # Man Lymphocytes # (Manual) Monocytes # (Manual) APTT POC ABG pH POC ABG pCO2 POC ABG pO2 Sodium 147 H Potassium Chloride 108.5 H Carbon Dioxide BUN Creatinine 0.7 L Glucose 209 H POC Glucose 197 H Lactic Acid Calcium 7.3 L Phosphorus Total Bilirubin AST ALT Total Creatine Kinase CK-MB (CK-2) Troponin T Total Protein Albumin HDL Cholesterol Salicylates Acetaminophen 10/15/18 10/15/18 10/15/18 15:48 18:34 21:29 WBC Hgb Hct MCV RDW Plt Count [place] % (Auto) [place] # Seg Neutrophils % Seg Neuts % (Manual) Lymphocytes % (Manual) Monocytes % (Manual) Seg Neutrophils # Seg Neutrophils # Man Lymphocytes # (Manual) Monocytes # (Manual) APTT POC ABG pH POC ABG pCO2 POC ABG pO2 Sodium Potassium Chloride Carbon Dioxide BUN Creatinine Glucose POC Glucose 220 H 249 H 209 H Lactic Acid Calcium Phosphorus Total Bilirubin AST ALT Total Creatine Kinase CK-MB (CK-2) Troponin T Total Protein Albumin HDL Cholesterol Salicylates Acetaminophen 10/16/18 10/16/18 10/16/18 02:16 03:50 05:57 WBC Hgb Hct MCV RDW Plt Count [place] % (Auto) [place] # Seg Neutrophils % Seg Neuts % (Manual) Lymphocytes % (Manual) Monocytes % (Manual) Seg Neutrophils # Seg Neutrophils # Man Lymphocytes # (Manual) Monocytes # (Manual) APTT POC ABG pH POC ABG pCO2 55.8 H POC ABG pO2 Sodium Potassium Chloride Carbon Dioxide BUN Creatinine Glucose POC Glucose 110 H 209 H Lactic Acid Calcium Phosphorus Total Bilirubin AST ALT Total Creatine Kinase CK-MB (CK-2) Troponin T Total Protein Albumin HDL Cholesterol Salicylates Acetaminophen 10/16/18 10/16/18 10/16/18 10:51 12:51 15:01 WBC Hgb Hct MCV RDW Plt Count [place] % (Auto) [place] # Seg Neutrophils % Seg Neuts % (Manual) Lymphocytes % (Manual) Monocytes % (Manual) Seg Neutrophils # Seg Neutrophils # Man Lymphocytes # (Manual) Monocytes # (Manual) APTT POC ABG pH POC ABG pCO2 48.9 H POC ABG pO2 Sodium Potassium Chloride Carbon Dioxide BUN Creatinine Glucose POC Glucose 198 H 196 H Lactic Acid Calcium Phosphorus Total Bilirubin AST ALT Total Creatine Kinase CK-MB (CK-2) Troponin T Total Protein Albumin HDL Cholesterol Salicylates Acetaminophen 10/16/18 10/16/18 10/17/18 17:34 21:59 02:17 WBC Hgb Hct MCV RDW Plt Count [place] % (Auto) [place] # Seg Neutrophils % Seg Neuts % (Manual) Lymphocytes % (Manual) Monocytes % (Manual) Seg Neutrophils # Seg Neutrophils # Man Lymphocytes # (Manual) Monocytes # (Manual) APTT POC ABG pH POC ABG pCO2 POC ABG pO2 Sodium Potassium Chloride Carbon Dioxide BUN Creatinine Glucose POC Glucose 179 H 139 H 135 H Lactic Acid Calcium Phosphorus Total Bilirubin AST ALT Total Creatine Kinase CK-MB (CK-2) Troponin T Total Protein Albumin HDL Cholesterol Salicylates Acetaminophen 10/17/18 10/17/18 10/17/18 05:40 05:47 10:18 WBC Hgb 11.3 L Hct 33.2 L MCV RDW Plt Count [place] % (Auto) [place] # Seg Neutrophils % Seg Neuts % (Manual) Lymphocytes % (Manual) Monocytes % (Manual) Seg Neutrophils # Seg Neutrophils # Man Lymphocytes # (Manual) Monocytes # (Manual) APTT POC ABG pH POC ABG pCO2 POC ABG pO2 Sodium Potassium Chloride Carbon Dioxide BUN Creatinine Glucose POC Glucose 125 H 139 H Lactic Acid Calcium Phosphorus Total Bilirubin AST ALT Total Creatine Kinase CK-MB (CK-2) Troponin T Total Protein Albumin HDL Cholesterol Salicylates Acetaminophen 10/17/18 10/18/18 10/18/18 23:11 08:49 11:31 WBC Hgb Hct MCV RDW Plt Count [place] % (Auto) [place] # Seg Neutrophils % Seg Neuts % (Manual) Lymphocytes % (Manual) Monocytes % (Manual) Seg Neutrophils # Seg Neutrophils # Man Lymphocytes # (Manual) Monocytes # (Manual) APTT POC ABG pH POC ABG pCO2 POC ABG pO2 Sodium Potassium Chloride Carbon Dioxide BUN Creatinine Glucose POC Glucose 165 H 125 H 182 H Lactic Acid Calcium Phosphorus Total Bilirubin AST ALT Total Creatine Kinase CK-MB (CK-2) Troponin T Total Protein Albumin HDL Cholesterol Salicylates Acetaminophen 10/18/18 10/18/18 10/19/18 16:12 21:02 00:28 WBC Hgb 11.4 L Hct 33.6 L MCV RDW Plt Count [place] % (Auto) 14.0 H [place] # 1.2 H Seg Neutrophils % Seg Neuts % (Manual) Lymphocytes % (Manual) Monocytes % (Manual) Seg Neutrophils # Seg Neutrophils # Man Lymphocytes # (Manual) Monocytes # (Manual) APTT POC ABG pH POC ABG pCO2 POC ABG pO2 Sodium Potassium Chloride Carbon Dioxide BUN Creatinine Glucose POC Glucose 168 H 324 H Lactic Acid Calcium Phosphorus Total Bilirubin AST ALT Total Creatine Kinase CK-MB (CK-2) Troponin T Total Protein Albumin HDL Cholesterol Salicylates Acetaminophen 10/19/18 10/19/18 10/19/18 04:57 04:57 07:32 WBC Hgb 11.7 L Hct 34.0 L MCV RDW Plt Count [place] % (Auto) [place] # Seg Neutrophils % Seg Neuts % (Manual) Lymphocytes % (Manual) Monocytes % (Manual) Seg Neutrophils # Seg Neutrophils # Man Lymphocytes # (Manual) Monocytes # (Manual) APTT POC ABG pH POC ABG pCO2 POC ABG pO2 Sodium Potassium 3.5 L Chloride 108.6 H Carbon Dioxide BUN Creatinine 0.6 L Glucose POC Glucose 159 H Lactic Acid Calcium 7.9 L Phosphorus Total Bilirubin AST ALT Total Creatine Kinase CK-MB (CK-2) Troponin T Total Protein Albumin HDL Cholesterol Salicylates Acetaminophen 10/19/18 10/19/18 16:25 20:59 WBC Hgb Hct MCV RDW Plt Count [place] % (Auto) [place] # Seg Neutrophils % Seg Neuts % (Manual) Lymphocytes % (Manual) Monocytes % (Manual) Seg Neutrophils # Seg Neutrophils # Man Lymphocytes # (Manual) Monocytes # (Manual) APTT POC ABG pH POC ABG pCO2 POC ABG pO2 Sodium Potassium Chloride Carbon Dioxide BUN Creatinine Glucose POC Glucose 134 H 110 H Lactic Acid Calcium Phosphorus Total Bilirubin AST ALT Total Creatine Kinase CK-MB (CK-2) Troponin T Total Protein Albumin HDL Cholesterol Salicylates Acetaminophen Allied health notes reviewed: nursing
--- NOTE | 2018-10-20 11:12 | Progress Note ---
Subjective Date of service: 10/20/18 Principal diagnosis: Ac hypercapnic hypoxemic Resp failure; Drug OD; AE-COPD; NINOSKA; Seizures Interval history: plan another CT of head to assess recovery from stroke process as well want to be sure there is not formation of mycotic abscess as this is factor in the "population" Objective - Vital Sign Vital Signs - 12hr 10/19/18 10/20/18 10/20/18 23:22 00:09 04:00 Temperature 98.2 F Pulse Rate 77 Respiratory 15 Rate Blood Pressure 110/54 Blood Pressure 103/52 [Right] O2 Sat by Pulse 96 97 Oximetry 10/20/18 10/20/18 10/20/18 04:13 07:53 09:52 Temperature 98.3 F 97.9 F Pulse Rate 81 101 H 101 H Respiratory 16 18 Rate Blood Pressure 115/71 Blood Pressure [Right] O2 Sat by Pulse 94 87 Oximetry - Laboratory Findings CBC and BMP: 10/19/18 04:57 10/19/18 04:57 Abnormal Lab Findings: Abnormal Labs 10/11/18 10/11/18 10/11/18 00:16 00:16 00:16 WBC 20.1 H Hgb Hct MCV 98 H RDW 15.4 H Plt Count [place] % (Auto) [place] # Seg Neutrophils % Seg Neuts % (Manual) Lymphocytes % (Manual) 5.0 L Monocytes % (Manual) 25.0 H Seg Neutrophils # Seg Neutrophils # Man 9.2 H Lymphocytes # (Manual) 1.0 L Monocytes # (Manual) 5.0 H APTT POC ABG pH POC ABG pCO2 POC ABG pO2 Sodium Potassium 5.8 H Chloride Carbon Dioxide 17 L BUN Creatinine 2.2 H Glucose 348 H POC Glucose Lactic Acid 13.70 H* Calcium 7.7 L Phosphorus Total Bilirubin 1.50 H AST 179 H ALT 110 H Total Creatine Kinase 324 H CK-MB (CK-2) Troponin T 0.257 H* Total Protein 5.9 L Albumin 2.9 L HDL Cholesterol 19 L Salicylates Acetaminophen 10/11/18 10/11/18 10/11/18 00:16 00:16 01:21 WBC Hgb Hct MCV RDW Plt Count [place] % (Auto) [place] # Seg Neutrophils % Seg Neuts % (Manual) Lymphocytes % (Manual) Monocytes % (Manual) Seg Neutrophils # Seg Neutrophils # Man Lymphocytes # (Manual) Monocytes # (Manual) APTT POC ABG pH 7.110 L POC ABG pCO2 50.3 H POC ABG pO2 65 L Sodium Potassium Chloride Carbon Dioxide BUN Creatinine Glucose POC Glucose Lactic Acid Calcium Phosphorus Total Bilirubin AST ALT Total Creatine Kinase CK-MB (CK-2) Troponin T Total Protein Albumin HDL Cholesterol Salicylates < 0.3 L Acetaminophen < 5.0 L 10/11/18 10/11/18 10/11/18 01:22 03:27 04:14 WBC Hgb Hct MCV RDW Plt Count [place] % (Auto) [place] # Seg Neutrophils % Seg Neuts % (Manual) Lymphocytes % (Manual) Monocytes % (Manual) Seg Neutrophils # Seg Neutrophils # Man Lymphocytes # (Manual) Monocytes # (Manual) APTT POC ABG pH POC ABG pCO2 POC ABG pO2 Sodium Potassium Chloride Carbon Dioxide BUN Creatinine Glucose POC Glucose Lactic Acid 8.50 H* 4.10 H* Calcium Phosphorus 4.90 H Total Bilirubin AST ALT Total Creatine Kinase CK-MB (CK-2) Troponin T Total Protein Albumin HDL Cholesterol Salicylates Acetaminophen 10/11/18 10/11/18 10/11/18 04:14 04:14 04:14 WBC Hgb Hct MCV RDW Plt Count [place] % (Auto) [place] # Seg Neutrophils % Seg Neuts % (Manual) Lymphocytes % (Manual) Monocytes % (Manual) Seg Neutrophils # Seg Neutrophils # Man Lymphocytes # (Manual) Monocytes # (Manual) APTT POC ABG pH POC ABG pCO2 POC ABG pO2 Sodium Potassium 5.6 H Chloride Carbon Dioxide 19 L BUN Creatinine 1.6 H Glucose 329 H POC Glucose 328 H Lactic Acid Calcium 7.3 L Phosphorus Total Bilirubin AST ALT Total Creatine Kinase CK-MB (CK-2) Troponin T 1.130 H* D Total Protein Albumin HDL Cholesterol Salicylates Acetaminophen 10/11/18 10/11/18 10/11/18 05:10 05:32 05:58 WBC Hgb Hct MCV RDW Plt Count [place] % (Auto) [place] # Seg Neutrophils % Seg Neuts % (Manual) Lymphocytes % (Manual) Monocytes % (Manual) Seg Neutrophils # Seg Neutrophils # Man Lymphocytes # (Manual) Monocytes # (Manual) APTT POC ABG pH 7.259 L POC ABG pCO2 45.6 H POC ABG pO2 Sodium Potassium Chloride 108.6 H Carbon Dioxide 20 L BUN Creatinine 1.8 H Glucose 269 H POC Glucose 273 H Lactic Acid Calcium 7.0 L Phosphorus Total Bilirubin AST ALT Total Creatine Kinase CK-MB (CK-2) Troponin T Total Protein Albumin HDL Cholesterol Salicylates Acetaminophen 10/11/18 10/11/18 10/11/18 05:58 06:39 07:00 WBC Hgb Hct MCV RDW Plt Count [place] % (Auto) [place] # Seg Neutrophils % Seg Neuts % (Manual) Lymphocytes % (Manual) Monocytes % (Manual) Seg Neutrophils # Seg Neutrophils # Man Lymphocytes # (Manual) Monocytes # (Manual) APTT POC ABG pH POC ABG pCO2 POC ABG pO2 Sodium Potassium Chloride Carbon Dioxide BUN Creatinine Glucose POC Glucose 247 H Lactic Acid 3.20 H* 3.30 H* Calcium Phosphorus Total Bilirubin AST ALT Total Creatine Kinase CK-MB (CK-2) Troponin T Total Protein Albumin HDL Cholesterol Salicylates Acetaminophen 10/11/18 10/11/18 10/11/18 07:00 07:30 07:36 WBC Hgb Hct MCV RDW Plt Count [place] % (Auto) [place] # Seg Neutrophils % Seg Neuts % (Manual) Lymphocytes % (Manual) Monocytes % (Manual) Seg Neutrophils # Seg Neutrophils # Man Lymphocytes # (Manual) Monocytes # (Manual) APTT POC ABG pH POC ABG pCO2 POC ABG pO2 Sodium 146 H Potassium Chloride 112.1 H Carbon Dioxide 21 L BUN Creatinine 1.6 H Glucose 218 H POC Glucose Lactic Acid 3.20 H* Calcium 7.0 L Phosphorus Total Bilirubin AST ALT Total Creatine Kinase CK-MB (CK-2) Troponin T 1.020 H* Total Protein Albumin HDL Cholesterol Salicylates Acetaminophen 10/11/18 10/11/18 10/11/18 07:43 08:29 08:29 WBC Hgb 16.2 H Hct 49.9 H D MCV RDW Plt Count [place] % (Auto) [place] # Seg Neutrophils % Seg Neuts % (Manual) Lymphocytes % (Manual) Monocytes % (Manual) Seg Neutrophils # Seg Neutrophils # Man Lymphocytes # (Manual) Monocytes # (Manual) APTT POC ABG pH POC ABG pCO2 POC ABG pO2 Sodium Potassium Chloride Carbon Dioxide BUN Creatinine Glucose POC Glucose 174 H Lactic Acid 3.90 H* Calcium Phosphorus Total Bilirubin AST ALT Total Creatine Kinase CK-MB (CK-2) Troponin T Total Protein Albumin HDL Cholesterol Salicylates Acetaminophen 10/11/18 10/11/18 10/11/18 08:29 08:42 11:05 WBC Hgb Hct MCV RDW Plt Count [place] % (Auto) [place] # Seg Neutrophils % Seg Neuts % (Manual) Lymphocytes % (Manual) Monocytes % (Manual) Seg Neutrophils # Seg Neutrophils # Man Lymphocytes # (Manual) Monocytes # (Manual) APTT 24.1 L POC ABG pH POC ABG pCO2 POC ABG pO2 Sodium 147 H Potassium Chloride 113.3 H Carbon Dioxide 21 L BUN Creatinine 1.7 H Glucose 119 H POC Glucose 164 H Lactic Acid Calcium 7.7 L Phosphorus Total Bilirubin AST ALT Total Creatine Kinase CK-MB (CK-2) Troponin T Total Protein Albumin HDL Cholesterol Salicylates Acetaminophen 10/11/18 10/11/18 10/11/18 11:05 11:06 12:30 WBC Hgb Hct MCV RDW Plt Count [place] % (Auto) [place] # Seg Neutrophils % Seg Neuts % (Manual) Lymphocytes % (Manual) Monocytes % (Manual) Seg Neutrophils # Seg Neutrophils # Man Lymphocytes # (Manual) Monocytes # (Manual) APTT POC ABG pH POC ABG pCO2 POC ABG pO2 Sodium 148 H Potassium Chloride 113.4 H Carbon Dioxide 21 L BUN Creatinine 1.6 H Glucose 119 H POC Glucose 116 H Lactic Acid 3.20 H* Calcium 7.5 L Phosphorus Total Bilirubin AST ALT Total Creatine Kinase CK-MB (CK-2) Troponin T Total Protein Albumin HDL Cholesterol Salicylates Acetaminophen 10/11/18 10/11/18 10/11/18 12:30 13:16 13:25 WBC Hgb Hct MCV RDW Plt Count [place] % (Auto) [place] # Seg Neutrophils % Seg Neuts % (Manual) Lymphocytes % (Manual) Monocytes % (Manual) Seg Neutrophils # Seg Neutrophils # Man Lymphocytes # (Manual) Monocytes # (Manual) APTT POC ABG pH 7.247 L POC ABG pCO2 48.4 H POC ABG pO2 Sodium Potassium Chloride Carbon Dioxide BUN Creatinine Glucose POC Glucose 112 H Lactic Acid 2.70 H* Calcium Phosphorus Total Bilirubin AST ALT Total Creatine Kinase CK-MB (CK-2) Troponin T Total Protein Albumin HDL Cholesterol Salicylates Acetaminophen 10/11/18 10/11/18 10/11/18 14:41 15:27 16:13 WBC Hgb Hct MCV RDW Plt Count [place] % (Auto) [place] # Seg Neutrophils % Seg Neuts % (Manual) Lymphocytes % (Manual) Monocytes % (Manual) Seg Neutrophils # Seg Neutrophils # Man Lymphocytes # (Manual) Monocytes # (Manual) APTT POC ABG pH POC ABG pCO2 POC ABG pO2 Sodium Potassium Chloride Carbon Dioxide BUN Creatinine Glucose POC Glucose 127 H 141 H 134 H Lactic Acid Calcium Phosphorus Total Bilirubin AST ALT Total Creatine Kinase CK-MB (CK-2) Troponin T Total Protein Albumin HDL Cholesterol Salicylates Acetaminophen 10/11/18 10/11/18 10/11/18 17:18 18:23 19:38 WBC Hgb Hct MCV RDW Plt Count [place] % (Auto) [place] # Seg Neutrophils % Seg Neuts % (Manual) Lymphocytes % (Manual) Monocytes % (Manual) Seg Neutrophils # Seg Neutrophils # Man Lymphocytes # (Manual) Monocytes # (Manual) APTT POC ABG pH POC ABG pCO2 POC ABG pO2 Sodium 148 H Potassium Chloride 112.7 H Carbon Dioxide BUN 23 H Creatinine Glucose 143 H POC Glucose 132 H 129 H Lactic Acid Calcium 7.9 L Phosphorus Total Bilirubin AST ALT Total Creatine Kinase CK-MB (CK-2) Troponin T Total Protein Albumin HDL Cholesterol Salicylates Acetaminophen 10/11/18 10/11/18 10/11/18 20:19 20:36 21:01 WBC Hgb Hct MCV RDW Plt Count [place] % (Auto) [place] # Seg Neutrophils % Seg Neuts % (Manual) Lymphocytes % (Manual) Monocytes % (Manual) Seg Neutrophils # Seg Neutrophils # Man Lymphocytes # (Manual) Monocytes # (Manual) APTT POC ABG pH 7.281 L POC ABG pCO2 POC ABG pO2 Sodium Potassium Chloride Carbon Dioxide BUN Creatinine Glucose POC Glucose 129 H 151 H Lactic Acid Calcium Phosphorus Total Bilirubin AST ALT Total Creatine Kinase CK-MB (CK-2) Troponin T Total Protein Albumin HDL Cholesterol Salicylates Acetaminophen 10/11/18 10/11/18 10/12/18 22:04 23:15 01:18 WBC Hgb Hct MCV RDW Plt Count [place] % (Auto) [place] # Seg Neutrophils % Seg Neuts % (Manual) Lymphocytes % (Manual) Monocytes % (Manual) Seg Neutrophils # Seg Neutrophils # Man Lymphocytes # (Manual) Monocytes # (Manual) APTT POC ABG pH POC ABG pCO2 POC ABG pO2 Sodium Potassium Chloride Carbon Dioxide BUN Creatinine Glucose POC Glucose 147 H 143 H 158 H Lactic Acid Calcium Phosphorus Total Bilirubin AST ALT Total Creatine Kinase CK-MB (CK-2) Troponin T Total Protein Albumin HDL Cholesterol Salicylates Acetaminophen 10/12/18 10/12/18 10/12/18 02:13 03:18 04:04 WBC Hgb Hct MCV RDW Plt Count [place] % (Auto) [place] # Seg Neutrophils % Seg Neuts % (Manual) Lymphocytes % (Manual) Monocytes % (Manual) Seg Neutrophils # Seg Neutrophils # Man Lymphocytes # (Manual) Monocytes # (Manual) APTT POC ABG pH POC ABG pCO2 POC ABG pO2 Sodium 147 H Potassium Chloride 111.1 H Carbon Dioxide BUN 30 H Creatinine 2.0 H Glucose 154 H POC Glucose 148 H 142 H Lactic Acid Calcium 8.1 L Phosphorus Total Bilirubin AST 269 H ALT 204 H Total Creatine Kinase 3647 H CK-MB (CK-2) 48.3 H Troponin T 2.230 H* D Total Protein 5.8 L Albumin 2.6 L HDL Cholesterol Salicylates Acetaminophen 10/12/18 10/12/18 10/12/18 04:04 04:08 04:19 WBC 24.4 H Hgb Hct MCV RDW Plt Count [place] % (Auto) [place] # Seg Neutrophils % Seg Neuts % (Manual) 32.0 L Lymphocytes % (Manual) Monocytes % (Manual) 8.0 H Seg Neutrophils # Seg Neutrophils # Man 7.8 H Lymphocytes # (Manual) Monocytes # (Manual) 2.0 H APTT POC ABG pH 7.317 L POC ABG pCO2 49.3 H POC ABG pO2 Sodium Potassium Chloride Carbon Dioxide BUN Creatinine Glucose POC Glucose 143 H Lactic Acid Calcium Phosphorus Total Bilirubin AST ALT Total Creatine Kinase CK-MB (CK-2) Troponin T Total Protein Albumin HDL Cholesterol Salicylates Acetaminophen 10/12/18 10/12/18 10/12/18 05:29 06:52 08:09 WBC Hgb Hct MCV RDW Plt Count [place] % (Auto) [place] # Seg Neutrophils % Seg Neuts % (Manual) Lymphocytes % (Manual) Monocytes % (Manual) Seg Neutrophils # Seg Neutrophils # Man Lymphocytes # (Manual) Monocytes # (Manual) APTT POC ABG pH 7.322 L POC ABG pCO2 46.5 H POC ABG pO2 Sodium Potassium Chloride Carbon Dioxide BUN Creatinine Glucose POC Glucose 196 H 226 H Lactic Acid Calcium Phosphorus Total Bilirubin AST ALT Total Creatine Kinase CK-MB (CK-2) Troponin T Total Protein Albumin HDL Cholesterol Salicylates Acetaminophen 10/12/18 10/12/18 10/12/18 08:38 10:03 15:50 WBC Hgb Hct MCV RDW Plt Count [place] % (Auto) [place] # Seg Neutrophils % Seg Neuts % (Manual) Lymphocytes % (Manual) Monocytes % (Manual) Seg Neutrophils # Seg Neutrophils # Man Lymphocytes # (Manual) Monocytes # (Manual) APTT POC ABG pH POC ABG pCO2 POC ABG pO2 Sodium Potassium Chloride Carbon Dioxide BUN Creatinine Glucose POC Glucose 138 H 148 H 221 H Lactic Acid Calcium Phosphorus Total Bilirubin AST ALT Total Creatine Kinase CK-MB (CK-2) Troponin T Total Protein Albumin HDL Cholesterol Salicylates Acetaminophen 10/12/18 10/12/18 10/12/18 18:39 20:56 21:34 WBC Hgb Hct MCV RDW Plt Count [place] % (Auto) [place] # Seg Neutrophils % Seg Neuts % (Manual) Lymphocytes % (Manual) Monocytes % (Manual) Seg Neutrophils # Seg Neutrophils # Man Lymphocytes # (Manual) Monocytes # (Manual) APTT POC ABG pH 7.336 L POC ABG pCO2 46.0 H POC ABG pO2 Sodium Potassium Chloride Carbon Dioxide BUN Creatinine Glucose POC Glucose 255 H 260 H Lactic Acid Calcium Phosphorus Total Bilirubin AST ALT Total Creatine Kinase CK-MB (CK-2) Troponin T Total Protein Albumin HDL Cholesterol Salicylates Acetaminophen 10/13/18 10/13/18 10/13/18 02:29 05:09 05:40 WBC 17.0 H Hgb Hct MCV RDW Plt Count [place] % (Auto) 9.2 H [place] # 1.6 H Seg Neutrophils % 76.2 H Seg Neuts % (Manual) Lymphocytes % (Manual) Monocytes % (Manual) Seg Neutrophils # 12.9 H Seg Neutrophils # Man Lymphocytes # (Manual) Monocytes # (Manual) APTT POC ABG pH POC ABG pCO2 POC ABG pO2 Sodium Potassium Chloride Carbon Dioxide BUN Creatinine Glucose POC Glucose 216 H 249 H Lactic Acid Calcium Phosphorus Total Bilirubin AST ALT Total Creatine Kinase CK-MB (CK-2) Troponin T Total Protein Albumin HDL Cholesterol Salicylates Acetaminophen 10/13/18 10/13/18 10/13/18 05:40 05:40 09:46 WBC Hgb Hct MCV RDW Plt Count [place] % (Auto) [place] # Seg Neutrophils % Seg Neuts % (Manual) Lymphocytes % (Manual) Monocytes % (Manual) Seg Neutrophils # Seg Neutrophils # Man Lymphocytes # (Manual) Monocytes # (Manual) APTT POC ABG pH POC ABG pCO2 POC ABG pO2 Sodium 146 H Potassium Chloride 109.8 H Carbon Dioxide BUN 35 H Creatinine Glucose 245 H POC Glucose 235 H Lactic Acid Calcium 7.9 L Phosphorus Total Bilirubin AST ALT Total Creatine Kinase CK-MB (CK-2) Troponin T 0.952 H* D Total Protein Albumin HDL Cholesterol Salicylates Acetaminophen 10/13/18 10/13/18 10/13/18 13:58 16:15 17:30 WBC Hgb Hct MCV RDW Plt Count [place] % (Auto) [place] # Seg Neutrophils % Seg Neuts % (Manual) Lymphocytes % (Manual) Monocytes % (Manual) Seg Neutrophils # Seg Neutrophils # Man Lymphocytes # (Manual) Monocytes # (Manual) APTT POC ABG pH POC ABG pCO2 51.2 H POC ABG pO2 Sodium Potassium Chloride Carbon Dioxide BUN Creatinine Glucose POC Glucose 139 H Lactic Acid Calcium Phosphorus Total Bilirubin AST ALT Total Creatine Kinase CK-MB (CK-2) Troponin T 0.816 H* Total Protein Albumin HDL Cholesterol Salicylates Acetaminophen 10/13/18 10/14/18 10/14/18 21:25 01:49 04:52 WBC Hgb Hct MCV RDW Plt Count [place] % (Auto) [place] # Seg Neutrophils % Seg Neuts % (Manual) Lymphocytes % (Manual) Monocytes % (Manual) Seg Neutrophils # Seg Neutrophils # Man Lymphocytes # (Manual) Monocytes # (Manual) APTT POC ABG pH POC ABG pCO2 56.0 H POC ABG pO2 Sodium Potassium Chloride Carbon Dioxide BUN Creatinine Glucose POC Glucose 205 H 166 H Lactic Acid Calcium Phosphorus Total Bilirubin AST ALT Total Creatine Kinase CK-MB (CK-2) Troponin T Total Protein Albumin HDL Cholesterol Salicylates Acetaminophen 10/14/18 10/14/18 10/14/18 05:32 09:45 09:45 WBC Hgb 11.4 L Hct 34.5 L MCV RDW Plt Count 139 L [place] % (Auto) [place] # Seg Neutrophils % Seg Neuts % (Manual) Lymphocytes % (Manual) Monocytes % (Manual) Seg Neutrophils # Seg Neutrophils # Man Lymphocytes # (Manual) Monocytes # (Manual) APTT POC ABG pH POC ABG pCO2 POC ABG pO2 Sodium 148 H Potassium Chloride 107.3 H Carbon Dioxide 34 H D BUN Creatinine 0.7 L D Glucose 191 H POC Glucose 164 H Lactic Acid Calcium 7.3 L Phosphorus Total Bilirubin AST 110 H ALT 91 H Total Creatine Kinase CK-MB (CK-2) Troponin T Total Protein 4.9 L Albumin 2.0 L HDL Cholesterol Salicylates Acetaminophen 10/14/18 10/14/18 10/14/18 10:54 12:20 18:30 WBC Hgb Hct MCV RDW Plt Count [place] % (Auto) [place] # Seg Neutrophils % Seg Neuts % (Manual) Lymphocytes % (Manual) Monocytes % (Manual) Seg Neutrophils # Seg Neutrophils # Man Lymphocytes # (Manual) Monocytes # (Manual) APTT POC ABG pH POC ABG pCO2 POC ABG pO2 Sodium Potassium Chloride Carbon Dioxide BUN Creatinine Glucose POC Glucose 173 H 158 H 108 H Lactic Acid Calcium Phosphorus Total Bilirubin AST ALT Total Creatine Kinase CK-MB (CK-2) Troponin T Total Protein Albumin HDL Cholesterol Salicylates Acetaminophen 10/14/18 10/15/18 10/15/18 21:54 02:12 04:19 WBC Hgb Hct MCV RDW Plt Count [place] % (Auto) [place] # Seg Neutrophils % Seg Neuts % (Manual) Lymphocytes % (Manual) Monocytes % (Manual) Seg Neutrophils # Seg Neutrophils # Man Lymphocytes # (Manual) Monocytes # (Manual) APTT POC ABG pH 7.491 H POC ABG pCO2 45.1 H POC ABG pO2 Sodium Potassium Chloride Carbon Dioxide BUN Creatinine Glucose POC Glucose 110 H 164 H Lactic Acid Calcium Phosphorus Total Bilirubin AST ALT Total Creatine Kinase CK-MB (CK-2) Troponin T Total Protein Albumin HDL Cholesterol Salicylates Acetaminophen 10/15/18 10/15/18 10/15/18 04:55 05:43 06:20 WBC Hgb 11.7 L Hct 34.7 L MCV RDW Plt Count [place] % (Auto) [place] # Seg Neutrophils % Seg Neuts % (Manual) Lymphocytes % (Manual) Monocytes % (Manual) Seg Neutrophils # Seg Neutrophils # Man Lymphocytes # (Manual) Monocytes # (Manual) APTT POC ABG pH POC ABG pCO2 47.3 H POC ABG pO2 78 L Sodium Potassium Chloride Carbon Dioxide BUN Creatinine Glucose POC Glucose 250 H Lactic Acid Calcium Phosphorus Total Bilirubin AST ALT Total Creatine Kinase CK-MB (CK-2) Troponin T Total Protein Albumin HDL Cholesterol Salicylates Acetaminophen 10/15/18 10/15/18 10/15/18 12:00 12:00 12:11 WBC Hgb 11.5 L Hct 34.0 L MCV RDW Plt Count [place] % (Auto) [place] # Seg Neutrophils % Seg Neuts % (Manual) Lymphocytes % (Manual) Monocytes % (Manual) Seg Neutrophils # Seg Neutrophils # Man Lymphocytes # (Manual) Monocytes # (Manual) APTT POC ABG pH POC ABG pCO2 POC ABG pO2 Sodium 147 H Potassium Chloride 108.5 H Carbon Dioxide BUN Creatinine 0.7 L Glucose 209 H POC Glucose 197 H Lactic Acid Calcium 7.3 L Phosphorus Total Bilirubin AST ALT Total Creatine Kinase CK-MB (CK-2) Troponin T Total Protein Albumin HDL Cholesterol Salicylates Acetaminophen 10/15/18 10/15/18 10/15/18 15:48 18:34 21:29 WBC Hgb Hct MCV RDW Plt Count [place] % (Auto) [place] # Seg Neutrophils % Seg Neuts % (Manual) Lymphocytes % (Manual) Monocytes % (Manual) Seg Neutrophils # Seg Neutrophils # Man Lymphocytes # (Manual) Monocytes # (Manual) APTT POC ABG pH POC ABG pCO2 POC ABG pO2 Sodium Potassium Chloride Carbon Dioxide BUN Creatinine Glucose POC Glucose 220 H 249 H 209 H Lactic Acid Calcium Phosphorus Total Bilirubin AST ALT Total Creatine Kinase CK-MB (CK-2) Troponin T Total Protein Albumin HDL Cholesterol Salicylates Acetaminophen 10/16/18 10/16/18 10/16/18 02:16 03:50 05:57 WBC Hgb Hct MCV RDW Plt Count [place] % (Auto) [place] # Seg Neutrophils % Seg Neuts % (Manual) Lymphocytes % (Manual) Monocytes % (Manual) Seg Neutrophils # Seg Neutrophils # Man Lymphocytes # (Manual) Monocytes # (Manual) APTT POC ABG pH POC ABG pCO2 55.8 H POC ABG pO2 Sodium Potassium Chloride Carbon Dioxide BUN Creatinine Glucose POC Glucose 110 H 209 H Lactic Acid Calcium Phosphorus Total Bilirubin AST ALT Total Creatine Kinase CK-MB (CK-2) Troponin T Total Protein Albumin HDL Cholesterol Salicylates Acetaminophen 10/16/18 10/16/18 10/16/18 10:51 12:51 15:01 WBC Hgb Hct MCV RDW Plt Count [place] % (Auto) [place] # Seg Neutrophils % Seg Neuts % (Manual) Lymphocytes % (Manual) Monocytes % (Manual) Seg Neutrophils # Seg Neutrophils # Man Lymphocytes # (Manual) Monocytes # (Manual) APTT POC ABG pH POC ABG pCO2 48.9 H POC ABG pO2 Sodium Potassium Chloride Carbon Dioxide BUN Creatinine Glucose POC Glucose 198 H 196 H Lactic Acid Calcium Phosphorus Total Bilirubin AST ALT Total Creatine Kinase CK-MB (CK-2) Troponin T Total Protein Albumin HDL Cholesterol Salicylates Acetaminophen 10/16/18 10/16/18 10/17/18 17:34 21:59 02:17 WBC Hgb Hct MCV RDW Plt Count [place] % (Auto) [place] # Seg Neutrophils % Seg Neuts % (Manual) Lymphocytes % (Manual) Monocytes % (Manual) Seg Neutrophils # Seg Neutrophils # Man Lymphocytes # (Manual) Monocytes # (Manual) APTT POC ABG pH POC ABG pCO2 POC ABG pO2 Sodium Potassium Chloride Carbon Dioxide BUN Creatinine Glucose POC Glucose 179 H 139 H 135 H Lactic Acid Calcium Phosphorus Total Bilirubin AST ALT Total Creatine Kinase CK-MB (CK-2) Troponin T Total Protein Albumin HDL Cholesterol Salicylates Acetaminophen 10/17/18 10/17/18 10/17/18 05:40 05:47 10:18 WBC Hgb 11.3 L Hct 33.2 L MCV RDW Plt Count [place] % (Auto) [place] # Seg Neutrophils % Seg Neuts % (Manual) Lymphocytes % (Manual) Monocytes % (Manual) Seg Neutrophils # Seg Neutrophils # Man Lymphocytes # (Manual) Monocytes # (Manual) APTT POC ABG pH POC ABG pCO2 POC ABG pO2 Sodium Potassium Chloride Carbon Dioxide BUN Creatinine Glucose POC Glucose 125 H 139 H Lactic Acid Calcium Phosphorus Total Bilirubin AST ALT Total Creatine Kinase CK-MB (CK-2) Troponin T Total Protein Albumin HDL Cholesterol Salicylates Acetaminophen 10/17/18 10/18/18 10/18/18 23:11 08:49 11:31 WBC Hgb Hct MCV RDW Plt Count [place] % (Auto) [place] # Seg Neutrophils % Seg Neuts % (Manual) Lymphocytes % (Manual) Monocytes % (Manual) Seg Neutrophils # Seg Neutrophils # Man Lymphocytes # (Manual) Monocytes # (Manual) APTT POC ABG pH POC ABG pCO2 POC ABG pO2 Sodium Potassium Chloride Carbon Dioxide BUN Creatinine Glucose POC Glucose 165 H 125 H 182 H Lactic Acid Calcium Phosphorus Total Bilirubin AST ALT Total Creatine Kinase CK-MB (CK-2) Troponin T Total Protein Albumin HDL Cholesterol Salicylates Acetaminophen 10/18/18 10/18/18 10/19/18 16:12 21:02 00:28 WBC Hgb 11.4 L Hct 33.6 L MCV RDW Plt Count [place] % (Auto) 14.0 H [place] # 1.2 H Seg Neutrophils % Seg Neuts % (Manual) Lymphocytes % (Manual) Monocytes % (Manual) Seg Neutrophils # Seg Neutrophils # Man Lymphocytes # (Manual) Monocytes # (Manual) APTT POC ABG pH POC ABG pCO2 POC ABG pO2 Sodium Potassium Chloride Carbon Dioxide BUN Creatinine Glucose POC Glucose 168 H 324 H Lactic Acid Calcium Phosphorus Total Bilirubin AST ALT Total Creatine Kinase CK-MB (CK-2) Troponin T Total Protein Albumin HDL Cholesterol Salicylates Acetaminophen 10/19/18 10/19/18 10/19/18 04:57 04:57 07:32 WBC Hgb 11.7 L Hct 34.0 L MCV RDW Plt Count [place] % (Auto) [place] # Seg Neutrophils % Seg Neuts % (Manual) Lymphocytes % (Manual) Monocytes % (Manual) Seg Neutrophils # Seg Neutrophils # Man Lymphocytes # (Manual) Monocytes # (Manual) APTT POC ABG pH POC ABG pCO2 POC ABG pO2 Sodium Potassium 3.5 L Chloride 108.6 H Carbon Dioxide BUN Creatinine 0.6 L Glucose POC Glucose 159 H Lactic Acid Calcium 7.9 L Phosphorus Total Bilirubin AST ALT Total Creatine Kinase CK-MB (CK-2) Troponin T Total Protein Albumin HDL Cholesterol Salicylates Acetaminophen 10/19/18 10/19/18 16:25 20:59 WBC Hgb Hct MCV RDW Plt Count [place] % (Auto) [place] # Seg Neutrophils % Seg Neuts % (Manual) Lymphocytes % (Manual) Monocytes % (Manual) Seg Neutrophils # Seg Neutrophils # Man Lymphocytes # (Manual) Monocytes # (Manual) APTT POC ABG pH POC ABG pCO2 POC ABG pO2 Sodium Potassium Chloride Carbon Dioxide BUN Creatinine Glucose POC Glucose 134 H 110 H Lactic Acid Calcium Phosphorus Total Bilirubin AST ALT Total Creatine Kinase CK-MB (CK-2) Troponin T Total Protein Albumin HDL Cholesterol Salicylates Acetaminophen
[2018-10-20] MEDS: DILAUDID IV PRN ×3 (12:45→22:13)
--- NOTE | 2018-10-20 12:50 | Progress Note ---
Assessment and Plan Assessment and plan: Acute thrombus in bilateral lower extremities - showed on 10/13/18 LE arterial doppler -Not a candidate for anticoagulation with heparin drip due to recent CVA - vascular planning revascularization next week Possible acute/subacute right FT CVA Initial CT head had no acute finding, 10/13/18 found unable to move left side MRI brain showed numerous acute/subacute multilobar infarcts involving the c erebrum and cerebellum including Hemorrhagic transformation of the right frontal and biparietal lobes was Not a candidate for tPA, cont to monitor off aspirin per teleneurology plan for QUIQUE today, Speech recommended pureed diet Severe sepsis with shock -Probably secondary to aspiration pneumonia -On IV broad-spectrum antibiotics with Unasyn for total 7 days -weaned off Levophed -Blood and sputum cultures negative so far Acute respiratory failure with hypoxia and hypercapnia -Probably secondary to acute COPD/asthma exacerbation and PNA -Required intubation on mechanical ventilator since admission -Pulmonology consulted, s/p extubation 10/16/18 - cont nebs , supplemental O2 as needed LLL pneumonia with mucous plugging on CTA, POA - likely from aspiration? cont abx unasun for total 7 days Hyperglycemia, not in DKA -s/p insulin drip, cont SSI for now, diabetic diet Acute toxic/metabolic encephalopathy, improved -Secondary to drug overdose versus sepsis/DKA vs acute CVA -Initial Head CT scan was negative negative - repeat CT head and MRI showed numerous acute/subacute multilobar infarcts involving the cerebrum and cerebellum including Hemorrhagic transformation of the largest infarcts that involve the right frontal and biparietal lobes - neurology following the patient Seizure -s/p IV lorazepam drip, will defer to neurology for AED - EEG pending Elevated troponin/NSTEMI type 2 -Probably secondary to demand ischemia from acute process/sepsis and underlying CHF -Echocardiogram for further evaluation - Ef 25-30% -Cardiology consulted, recommended medical Mx for now, Acute systolic CHF, Ef 25-30% - monitor ins/os, medical Mx for now, cardiology following ARF, due to vasomotor nephropathy, resolved -On IV fluid, will cont to monitor creatinine level Hyperkalemia, resolved Abnormal LFT -Probably due to sepsis and chronic hepatitis C virus infection -Abdominal US showed no sign of cirrhosis Severe protein calorie malnutrition -Dietitian consulted DVT prophylaxis with heparin and GI prophylaxis with famotidine Disposition: Patient will be transferred to tele History Interval history: Patient seen and examined medical records reviewed Patient looks chronically ill cachectic emaciated Confused at times, no new events reported by the nursing Vital signs reviewed Hospitalist Physical - Constitutional Vitals: Temp Pulse Resp BP Pulse Ox 98.3 F 85 18 106/64 94 10/20/18 12:18 10/20/18 12:18 10/20/18 12:18 10/20/18 12:18 10/20/18 12:18 General appearance: Present: mild distress, cachectic, disheveled, other (malnourished) - EENT Eyes: Present: PERRL, EOM intact - Neck Neck: Present: supple, normal ROM - Respiratory Respiratory effort: normal Respiratory: bilateral: diminished, rhonchi - Cardiovascular Rhythm: regular Heart Sounds: Present: S1 & S2 - Extremities Extremities: no ischemia, No edema - Abdominal General gastrointestinal: soft, non-tender, non-distended, normal bowel sounds - Integumentary Integumentary: Present: clear, warm - Psychiatric Psychiatric: appropriate mood/affect, cooperative - Neurologic Neurologic: CNII-XII intact, moves all extremities Results - Labs CBC & Chem 7: 10/19/18 04:57 10/19/18 04:57 Labs: Laboratory Last Values WBC 8.3 K/mm3 (4.5-11.0) 10/19/18 00:28 RBC 3.70 M/mm3 (3.65-5.03) 10/19/18 00:28 Hgb 11.7 gm/dl (11.8-15.2) L 10/19/18 04:57 Hct 34.0 % (35.5-45.6) L 10/19/18 04:57 MCV 91 fl (84-94) 10/19/18 00:28 MCH 31 pg (28-32) 10/19/18 00:28 MCHC 34 % (32-34) 10/19/18 00:28 RDW 13.8 % (13.2-15.2) 10/19/18 00:28 Plt Count 283 K/mm3 (140-440) 10/19/18 04:57 Lymph % (Auto) 19.9 % (13.4-35.0) 10/19/18 00:28 [place] % (Auto) 14.0 % (0.0-7.3) H 10/19/18 00:28 Eos % (Auto) 0.1 % (0.0-4.3) 10/19/18 00:28 Baso % (Auto) 0.3 % (0.0-1.8) 10/19/18 00:28 Lymph # 1.7 K/mm3 (1.2-5.4) 10/19/18 00:28 [place] # 1.2 K/mm3 (0.0-0.8) H 10/19/18 00:28 Eos # 0.0 K/mm3 (0.0-0.4) 10/19/18 00: Baso # 0.0 K/mm3 (0.0-0.1) 10/19/18 00:28 Add Manual Diff Complete 10/12/18 04:04 Total Counted 100 10/12/18 04:04 Seg Neutrophils % 65.7 % (40.0-70.0) 10/19/18 00:28 Seg Neuts % (Manual) 32.0 % (40.0-70.0) L 10/12/18 04:04 39.0 % 10/12/18 04:04 19.0 % (13.4-35.0) 10/12/18 04:04 Reactive Lymphs % (Man) 0 % 10/12/18 04:04 8.0 % (0.0-7.3) H 10/12/18 04:04 0 % (0.0-4.3) 10/12/18 04:04 0 % (0.0-1.8) 10/12/18 04:04 2.0 % 10/12/18 04:04 0 % 10/12/18 04:04 0 % 10/12/18 04:04 0 % 10/12/18 04:04 Nucleated RBC % Not Reportable 10/12/18 04:04 Seg Neutrophils # 5.5 K/mm3 (1.8-7.7) 10/19/18 00:28 Seg Neutrophils # Man 7.8 K/mm3 (1.8-7.7) H 10/12/18 04:04 Band Neutrophils # 9.5 K/mm3 10/12/18 04:04 4.6 K/mm3 (1.2-5.4) 10/12/18 04:04 Abs React Lymphs (Man) 0.0 K/mm3 10/12/18 04:04 2.0 K/mm3 (0.0-0.8) H 10/12/18 04:04 0.0 K/mm3 (0.0-0.4) 10/12/18 04:04 0.0 K/mm3 (0.0-0.1) 10/12/18 04:04 0.5 K/mm3 10/12/18 04:04 0.0 K/mm3 10/12/18 04:04 0.0 K/mm3 10/12/18 04:04 Blast Cells # 0.0 K/mm3 10/12/18 04:04 Pathologist Review 10/11/18 00:16 WBC Morphology Not Reportable 10/12/18 04:04 Hypersegmented Neuts Not Reportable 10/12/18 04:04 Hyposegmented Neuts Not Reportable 10/12/18 04:04 Hypogranular Neuts Not Reportable 10/12/18 04:04 Not Reportable 10/12/18 04:04 Not Reportable 10/12/18 04:04 Not Reportable 10/12/18 04:04 Not Reportable 10/12/18 04:04 Not Reportable 10/12/18 04:04 Not Reportable 10/12/18 04:04 Appears normal 10/12/18 04:04 Not Reportable 10/12/18 04:04 Plt Clumps, EDTA Not Reportable 10/12/18 04:04 Not Reportable 10/12/18 04:04 Not Reportable 10/12/18 04:04 Not Reportable 10/12/18 04:04 Plt Morphology Comment Not Reportable 10/12/18 04:04 RBC Morphology Not Reportable 10/12/18 04:04 Dimorphic RBCs Not Reportable 10/12/18 04:04 Not Reportable 10/12/18 04:04 Not Reportable 10/12/18 04:04 Not Reportable 10/12/18 04:04 1+ 10/12/18 04:04 Not Reportable 10/12/18 04:04 Not Reportable 10/12/18 04:04 Not Reportable 10/12/18 04:04 Not Reportable 10/12/18 04:04 Not Reportable 10/12/18 04:04 Not Reportable 10/12/18 04:04 Not Reportable 10/12/18 04:04 Not Reportable 10/12/18 04:04 Not Reportable 10/12/18 04:04 Not Reportable 10/12/18 04:04 Not Reportable 10/12/18 04:04 Not Reportable 10/12/18 04:04 Not Reportable 10/12/18 04:04 Not Reportable 10/12/18 04:04 Not Reportable 10/12/18 04:04 Acanthocytes (Spur) Not Reportable 10/12/18 04:04 Rouleaux Not Reportable 10/12/18 04:04 Not Reportable 10/12/18 04:04 Not Reportable 10/12/18 04:04 Not Reportable 10/12/18 04:04 Not Reportable 10/12/18 04:04 Hem Pathologist Commnt No 10/12/18 04:04 PT 14.7 Sec. (12.2-14.9) 10/11/18 08:29 INR 1.08 (0.87-1.13) 10/11/18 08:29 APTT 24.1 Sec. (24.2-36.6) L 10/11/18 08:29 Heparin Anti-Xa, Unfract Negative (Negative) 10/15/18 12:00 POC ABG pH 7.393 (7.35-7.45) 10/16/18 12:51 POC ABG pCO2 48.9 (35-45) H 10/16/18 12:51 POC ABG pO2 92 (80-105) 10/16/18 12:51 POC ABG HCO3 29.8 (22-26 mml/L) 10/16/18 12:51 POC ABG Total CO2 31 (23-27mmol/L) 10/16/18 12:51 POC ABG O2 Sat 97 10/16/18 12:51 POC ABG Base Excess 5 ((-2) - (+3)mmol/L) 10/16/18 12:51 35 % 10/16/18 12:51 Sodium 144 mmol/L (137-145) 10/19/18 04:57 Potassium 3.5 mmol/L (3.6-5.0) L 10/19/18 04:57 Chloride 108.6 mmol/L (98-107) H 10/19/18 04:57 Carbon Dioxide 25 mmol/L (22-30) 10/19/18 04:57 14 mmol/L 10/19/18 04:57 BUN 11 mg/dL (9-20) 10/19/18 04:57 0.6 mg/dL (0.8-1.5) L 10/19/18 04:57 Estimated GFR > 60 ml/min 10/19/18 04:57 18 % 10/19/18 04:57 Glucose 93 mg/dL (75-100) 10/19/18 04:57 POC Glucose 338 (70-105) H 10/20/18 12:04 Lactic Acid 2.70 mmol/L (0.7-2.0) H* 10/11/18 12:30 Calcium 7.9 mg/dL (8.4-10.2) L 10/19/18 04:57 Phosphorus 4.90 mg/dL (2.5-4.5) H 10/11/18 04:14 Magnesium 1.80 mg/dL (1.7-2.3) 10/11/18 11:53 0.50 mg/dL (0.1-1.2) 10/14/18 09:45 AST 110 units/L (5-40) H 10/14/18 09:45 ALT 91 units/L (7-56) H 10/14/18 09:45 58 units/L (35-129) 10/14/18 09:45 3647 units/L (55-170) H 10/12/18 04:04 CK-MB (CK-2) 48.3 ng/mL (0.0-4.0) H 10/12/18 04:04 CK-MB (CK-2) Rel Index 1.3 (0-4) 10/12/18 04:04 0.816 ng/mL (0.00-0.029) H* 10/13/18 16:15 4.9 g/dL (6.3-8.2) L 10/14/18 09:45 2.0 g/dL (3.9-5) L 10/14/18 09:45 0.7 % 10/14/18 09:45 Triglycerides 87 mg/dL (2-149) 10/11/18 00:16 Cholesterol 73 mg/dL (50-199) 10/11/18 00:16 51 mg/dL (50-130) 10/11/18 00:16 19 mg/dL (40-59) L 10/11/18 00:16 3.84 % 10/11/18 00:16 See scanned report 10/15/18 12:00 Yellow (Yellow) 10/11/18 01:42 Cloudy (Clear) 10/11/18 01:42 6.0 (5.0-7.0) 10/11/18 01:42 Ur Specific [place] 1.011 (1.003-1.030) 10/11/18 01:42 100 mg/dl mg/dL (Negative) 10/11/18 01:42 >=500 mg/dL (Negative) 10/11/18 01:42 Neg mg/dL (Negative) 10/11/18 01:42 Mod (Negative) 10/11/18 01:42 Neg (Negative) 10/11/18 01:42 Neg (Negative) 10/11/18 01:42 4.0 mg/dL (<2.0) 10/11/18 01:42 Ur Leukocyte Esterase Neg (Negative) 10/11/18 01:42 5.0 /HPF (0.0-6.0) 10/11/18 01:42 2.0 /HPF (0.0-6.0) 10/11/18 01:42 U Epithel Cells (Auto) < 1.0 /HPF (0-13.0) 10/11/18 01:42 Amorphous Crystals 1+ 10/11/18 01:42 Few /HPF 10/11/18 01:42 2+ /HPF (WINDER OPERATOR) 10/11/18 01:42 Vancomycin Trough 8.3 ug/mL (5.0-20.0) 10/13/18 05:40 Salicylates < 0.3 mg/dL (2.8-20.0) L 10/11/18 00:16 Presumptive positive 10/11/18 01:42 Presumptive negative 10/11/18 01:42 Acetaminophen < 5.0 ug/mL (10.0-30.0) L 10/11/18 00:16 Ur Barbiturates Screen Presumptive negative 10/11/18 01:42 Ur Phencyclidine Scrn Presumptive negative 10/11/18 01:42 Ur Amphetamines Screen Presumptive positive 10/11/18 01:42 U Benzodiazepines Scrn Presumptive positive 10/11/18 01:42 Presumptive negative 10/11/18 01:42 U Marijuana (THC) Screen Presumptive negative 10/11/18 01:42 Disclamer 10/11/18 01:42 Plasma/Serum Alcohol < 0.01 % (0-0.07) 10/11/18 00:16 Heparin-induced Plt Ab Negative (Negative) 10/15/18 12:00 UF Heparin High Dose 0 % Release 10/15/18 12:00 AURELIO UFH Low Dose 0.1 0 % Release 10/15/18 12:00 AURELIO UFH Low Dose 0.5 0 % Release 10/15/18 12:00 Active Medications - Current Medications Current Medications: Generic Name Dose Route Start Last Admin Trade Name Freq PRN Reason Stop Dose Admin Acetaminophen 650 mg 10/11/18 04:04 10/18/18 11:11 Tylenol PO 650 mg Q4H PRN Administration Pain MILD(1-3)/Fever >100.5/HOLLINS Acetaminophen 650 mg 10/18/18 11:53 Tylenol DE Q4H PRN Pain, Mild(1-3)/Fever>100.5/HOLLINS Albuterol 2.5 mg 10/19/18 00:54 Proventil IH Q4HRT PRN Shortness Of Breath Albuterol/Ipratropium 1 ampul 10/19/18 08:00 10/20/18 07:25 Duoneb *Not For Prn Use* IH 1 ampul TIDRT ISAAC Administration Lipase/Protease/Amylase 1 each 10/18/18 13:43 Pancresolo Mcgrath 10,500 Unit FEEDTUBE PRN PRN For Clogged Feeding Tube Aspirin 325 mg 10/13/18 10:00 10/20/18 09:49 Aspirin PO 325 mg QDAY ISAAC Administration Dextrose 0 ml 10/11/18 03:57 10/11/18 10:18 D50w (25gm) Syringe IV 10 ml PRN PRN Administration Hypoglycemia Enoxaparin Sodium 40 mg 10/18/18 22:00 10/19/18 21:09 Lovenox SUB-Q 40 mg QDAY@2200 ISAAC Administration Famotidine 20 mg 10/15/18 10:00 10/20/18 09:53 Pepcid PO 20 mg BID ISAAC Administration Hydromorphone HCl 0.5 mg 10/18/18 15:40 10/19/18 19:21 Dilaudid IV 0.5 mg Q3H PRN Administration Pain , Severe (7-10) Hydrophilic Ointment 1 applic 10/11/18 14:00 Vaseline Lip Therapy TP Q2HR PRN Dry Lips Insulin Human Regular 0 units 10/17/18 11:30 10/20/18 08:25 Humulin R SUB-Q Not Given [facility] Protocol Metoprolol Tartrate 25 mg 10/18/18 22:00 10/20/18 09:52 Lopressor PO 25 mg BID ISAAC Administration Metoprolol Tartrate 2.5 mg 10/18/18 18:51 10/18/18 22:19 Lopressor IV 2.5 mg Q6H PRN Administration Tachyarrhythmias Morphine Sulfate 2 mg 10/14/18 11:29 10/20/18 08:23 Morphine IV 2 mg Q4H PRN Administration severe pain 7-10 Multi-Ingred Cream/Lotion/Oil/Oint 1 applic 10/11/18 14:00 Artificial Tears Ophth Oint OU Q4HR PRN Dry Eye(s) Ondansetron HCl 4 mg 10/11/18 04:04 Zofran IV Q8H PRN Nausea And Vomiting Oxycodone/Acetaminophen 1 tab 10/18/18 13:45 Percocet 5/325 PO Q6H PRN Pain, Moderate (4-6) Quetiapine Fumarate 200 mg 10/14/18 22:00 10/19/18 21:09 Seroquel PO 200 mg QHS ISAAC Administration Simple Syrup 15 ml 10/18/18 13:43 Simple Syrup FEEDTUBE PRN PRN Hypoglycemia Simple Syrup 30 ml 10/18/18 13:43 Simple Syrup FEEDTUBE PRN PRN Hypoglycemia Sodium Bicarbonate 325 mg 10/18/18 13:43 Sodium Bicarbonate FEEDTUBE PRN PRN For Clogged Feeding Tube Sodium Chloride 10 ml 10/11/18 10:00 10/20/18 09:52 Sodium Chloride Flush Syringe 10 Ml IV 10 ml BID ISAAC Administration Sodium Chloride 10 ml 10/11/18 04:04 Sodium Chloride Flush Syringe 10 Ml IV PRN PRN LINE FLUSH Nutrition/Malnutrition Assess - Dietary Evaluation Nutrition/Malnutrition Findings: Nutrition Notes Start: 10/11/18 12:39 Freq: Status: Active Protocol: Document 10/19/18 16:24 RM (Rec: 10/19/18 16:30 RM [email or web address]) Nutrition Notes Initial or Follow up Reassessment Current Diagnosis Acute Kidney Injury,COPD, Diabetes,Hypertension,Stroke Other Pertinent Diagnosis Hepatitis C, cellulitis, Polysubstabce abuse, Opiate overdose, AMS Current Diet Pureed Labs/Tests Reviewed Pertinent Medications Reviewed Height 6 ft 3 in Weight 64.1 kg [place] Body Weight (kg) 89.09 BMI 17.6 Subjective/Other Information Consulted for TF recommendation again. Pureed diet recommended per acute care progress note . Per MD there are no plans for TF. Nurse stated that pt is not eating much of pureed diet and requested ONS. Burn Absent Trauma Absent #2 Nutrition Diagnosis Inadequate oral intake Diagnosis Progress(for reassessment Continues documentation) #1 Nutrition Diagnosis Malnutrition Diagnosis Progress(for reassessment Continues documentation) Is patient on ventilator? No Is Patient Ambulatory and/or Out of Bed No REE-([facility]-confined to bed) [phone] Kcal/Kg value to use for calculation 36 Approximate Energy Requirements Using 2308 kcal/Kg Calculation Used for Recommendations Kcal/kg Additional Notes Protein Needs: 79-99g (1.2-1. 5g/kg) Fluid Needs: 1 ml/kcal Nutrition Intervention Change Diet Order: Pureed, Cardiac/Consistent CHO Add Supplement/Snack (indicate name/kcal Glucerna 1 daily /protein ) Provides kCal: 220 Provides Protein (gm) 10 Goal #1 Meet at least 75% of calorie and protein needs via PO and ONS intakes Goal #2 Wt gain/maintenance Anticipated Discharge Needs: Unknown at this time Follow-Up By: 10/22/18 Additional Comments Follow for PO and ONS intakes
[2018-10-20] MEDS: XANAX PO PRN ×2 (14:44→22:12)
--- NOTE | 2018-10-20 19:19 | Cat Scan Report ---
PROCEDURE: CT HEAD/BRAIN WO CON TECHNIQUE: Axial helical imaging from the skull base to the vertex. HISTORY: ams COMPARISONS: MRI brain dated October 15, [address] dated October 13, 2018 FINDINGS: Evaluation of portions of the temporal lobes is limited by artifact created by the skull base. There are evolving cortical infarcts in the right frontal and left occipital lobes and in the cerebel lum bilaterally. Again noted are the postsurgical changes in the posterior fossa and occipital bone. There is no definite evidence of an acute intracranial process. There continues to the increased density in the subarachnoid space at the right parietal lobe cortica l infarct which may be slightly increased in degree compared with the previous CT does not appear to be significantly changed since the previous MRI. This may represent intravascular thrombus or petechi al hemorrhage in this region. Ventricular size is concordant with the degree of volume loss. The visualized portions of the orbits, paranasal and mastoid sinuses are unremarkable. IMPRESSION: 1. Evolving cortical infarcts in the right frontal and left occipital lobes and in the cerebellum art aterally. 2. Persistent increased density in the right parietal lobe cortical infarct that is not significant c hanged since the previous MRI dated October 15, 2018 but is more prominent compared with the previous CT d ated October 13, 2018. This may represent intravascular thrombus and petechial hemorrhage as was inferred on the gradient echo sequence of the MRI dated October 15, 2018. If there is a clinical suspicion of additional areas of acute cerebral ischemia, MRI brain may be hel pful. This document is electronically signed by Rubina Watts MD., Oct 20 2018 07:17:11 PM ET
[2018-10-20] MEDS: LOVENOX SUB-Q SCH (22:11)
[2018-10-21 06:07] LABS: Basophils % (Auto) 0.4 % (0.0-1.8); Eosinophils # (Auto) 0.1 K/mm3 (0.0-0.4); Eosinophils % (Auto) 0.8 % (0.0-4.3); Hematocrit 33.9 % (35.5-45.6); Hemoglobin 11.6 gm/dl (11.8-15.2); Lymphocytes # (Auto) 1.6 K/mm3 (1.2-5.4); Lymphocytes % (Auto) 18.4 % (13.4-35.0); Mean Corpuscular HGB Conc 34 % (32-34); Mean Corpuscular Volume 92 fl (84-94); Monocytes # (Auto) 0.9 K/mm3 (0.0-0.8); Monocytes % (Auto) 9.7 % (0.0-7.3); Platelet Count 389 K/mm3 (140-440); Red Blood Count 3.68 M/mm3 (3.65-5.03); Red Cell Distribution Width 14.1 % (13.2-15.2)
[2018-10-21 06:34] LABS: Alanine Aminotransferase 34 units/L (7-56); BUN/Creatinine Ratio 18; Blood Urea Nitrogen 9 mg/dL (9-20); Calcium 7.5 mg/dL (8.4-10.2); Hemolysis Index 24
[2018-10-21] MEDS: DUONEB *Not for PRN Use IH SCH ×3 (07:49→20:13)
--- NOTE | 2018-10-21 08:31 | Progress Note ---
Subjective Date of service: 10/21/18 Principal diagnosis: Ac hypercapnic hypoxemic Resp failure; Drug OD; AE-COPD; NINOSKA; Seizures Interval history: went over the new CT and the infarctsin th right parietal lobe are resolving very well and are purely ischemic no bleeding or severe edema suspect embolic due to injected dilaudid etc. explained dx to patient Objective - Vital Sign Vital Signs - 12hr 10/20/18 10/20/18 10/21/18 22:00 23:22 00:00 Temperature 97.0 F L Pulse Rate 91 H 88 88 Respiratory 19 20 21 Rate Blood Pressure 100/57 Blood Pressure [Right] O2 Sat by Pulse 93 96 Oximetry 10/21/18 10/21/18 05:02 08:00 Temperature 98 F 97.7 F Pulse Rate 74 82 Respiratory 1 L 14 Rate Blood Pressure 119/68 Blood Pressure 141/68 [Right] O2 Sat by Pulse 90 Oximetry - Laboratory Findings CBC and BMP: 10/21/18 04:59 10/21/18 04:59 Abnormal Lab Findings: Abnormal Labs 10/11/18 10/11/18 10/11/18 00:16 00:16 00:16 WBC 20.1 H Hgb Hct MCV 98 H RDW 15.4 H Plt Count [place] % (Auto) [place] # Seg Neutrophils % Seg Neuts % (Manual) Lymphocytes % (Manual) 5.0 L Monocytes % (Manual) 25.0 H Seg Neutrophils # Seg Neutrophils # Man 9.2 H Lymphocytes # (Manual) 1.0 L Monocytes # (Manual) 5.0 H APTT POC ABG pH POC ABG pCO2 POC ABG pO2 Sodium Potassium 5.8 H Chloride Carbon Dioxide 17 L BUN Creatinine 2.2 H Glucose 348 H POC Glucose Lactic Acid 13.70 H* Calcium 7.7 L Phosphorus Total Bilirubin 1.50 H AST 179 H ALT 110 H Total Creatine Kinase 324 H CK-MB (CK-2) Troponin T 0.257 H* Total Protein 5.9 L Albumin 2.9 L HDL Cholesterol 19 L Salicylates Acetaminophen 10/11/18 10/11/18 10/11/18 00:16 00:16 01:21 WBC Hgb Hct MCV RDW Plt Count [place] % (Auto) [place] # Seg Neutrophils % Seg Neuts % (Manual) Lymphocytes % (Manual) Monocytes % (Manual) Seg Neutrophils # Seg Neutrophils # Man Lymphocytes # (Manual) Monocytes # (Manual) APTT POC ABG pH 7.110 L POC ABG pCO2 50.3 H POC ABG pO2 65 L Sodium Potassium Chloride Carbon Dioxide BUN Creatinine Glucose POC Glucose Lactic Acid Calcium Phosphorus Total Bilirubin AST ALT Total Creatine Kinase CK-MB (CK-2) Troponin T Total Protein Albumin HDL Cholesterol Salicylates < 0.3 L Acetaminophen < 5.0 L 10/11/18 10/11/18 10/11/18 01:22 03:27 04:14 WBC Hgb Hct MCV RDW Plt Count [place] % (Auto) [place] # Seg Neutrophils % Seg Neuts % (Manual) Lymphocytes % (Manual) Monocytes % (Manual) Seg Neutrophils # Seg Neutrophils # Man Lymphocytes # (Manual) Monocytes # (Manual) APTT POC ABG pH POC ABG pCO2 POC ABG pO2 Sodium Potassium Chloride Carbon Dioxide BUN Creatinine Glucose POC Glucose Lactic Acid 8.50 H* 4.10 H* Calcium Phosphorus 4.90 H Total Bilirubin AST ALT Total Creatine Kinase CK-MB (CK-2) Troponin T Total Protein Albumin HDL Cholesterol Salicylates Acetaminophen 10/11/18 10/11/18 10/11/18 04:14 04:14 04:14 WBC Hgb Hct MCV RDW Plt Count [place] % (Auto) [place] # Seg Neutrophils % Seg Neuts % (Manual) Lymphocytes % (Manual) Monocytes % (Manual) Seg Neutrophils # Seg Neutrophils # Man Lymphocytes # (Manual) Monocytes # (Manual) APTT POC ABG pH POC ABG pCO2 POC ABG pO2 Sodium Potassium 5.6 H Chloride Carbon Dioxide 19 L BUN Creatinine 1.6 H Glucose 329 H POC Glucose 328 H Lactic Acid Calcium 7.3 L Phosphorus Total Bilirubin AST ALT Total Creatine Kinase CK-MB (CK-2) Troponin T 1.130 H* D Total Protein Albumin HDL Cholesterol Salicylates Acetaminophen 10/11/18 10/11/18 10/11/18 05:10 05:32 05:58 WBC Hgb Hct MCV RDW Plt Count [place] % (Auto) [place] # Seg Neutrophils % Seg Neuts % (Manual) Lymphocytes % (Manual) Monocytes % (Manual) Seg Neutrophils # Seg Neutrophils # Man Lymphocytes # (Manual) Monocytes # (Manual) APTT POC ABG pH 7.259 L POC ABG pCO2 45.6 H POC ABG pO2 Sodium Potassium Chloride 108.6 H Carbon Dioxide 20 L BUN Creatinine 1.8 H Glucose 269 H POC Glucose 273 H Lactic Acid Calcium 7.0 L Phosphorus Total Bilirubin AST ALT Total Creatine Kinase CK-MB (CK-2) Troponin T Total Protein Albumin HDL Cholesterol Salicylates Acetaminophen 10/11/18 10/11/18 10/11/18 05:58 06:39 07:00 WBC Hgb Hct MCV RDW Plt Count [place] % (Auto) [place] # Seg Neutrophils % Seg Neuts % (Manual) Lymphocytes % (Manual) Monocytes % (Manual) Seg Neutrophils # Seg Neutrophils # Man Lymphocytes # (Manual) Monocytes # (Manual) APTT POC ABG pH POC ABG pCO2 POC ABG pO2 Sodium Potassium Chloride Carbon Dioxide BUN Creatinine Glucose POC Glucose 247 H Lactic Acid 3.20 H* 3.30 H* Calcium Phosphorus Total Bilirubin AST ALT Total Creatine Kinase CK-MB (CK-2) Troponin T Total Protein Albumin HDL Cholesterol Salicylates Acetaminophen 10/11/18 10/11/18 10/11/18 07:00 07:30 07:36 WBC Hgb Hct MCV RDW Plt Count [place] % (Auto) [place] # Seg Neutrophils % Seg Neuts % (Manual) Lymphocytes % (Manual) Monocytes % (Manual) Seg Neutrophils # Seg Neutrophils # Man Lymphocytes # (Manual) Monocytes # (Manual) APTT POC ABG pH POC ABG pCO2 POC ABG pO2 Sodium 146 H Potassium Chloride 112.1 H Carbon Dioxide 21 L BUN Creatinine 1.6 H Glucose 218 H POC Glucose Lactic Acid 3.20 H* Calcium 7.0 L Phosphorus Total Bilirubin AST ALT Total Creatine Kinase CK-MB (CK-2) Troponin T 1.020 H* Total Protein Albumin HDL Cholesterol Salicylates Acetaminophen 10/11/18 10/11/18 10/11/18 07:43 08:29 08:29 WBC Hgb 16.2 H Hct 49.9 H D MCV RDW Plt Count [place] % (Auto) [place] # Seg Neutrophils % Seg Neuts % (Manual) Lymphocytes % (Manual) Monocytes % (Manual) Seg Neutrophils # Seg Neutrophils # Man Lymphocytes # (Manual) Monocytes # (Manual) APTT POC ABG pH POC ABG pCO2 POC ABG pO2 Sodium Potassium Chloride Carbon Dioxide BUN Creatinine Glucose POC Glucose 174 H Lactic Acid 3.90 H* Calcium Phosphorus Total Bilirubin AST ALT Total Creatine Kinase CK-MB (CK-2) Troponin T Total Protein Albumin HDL Cholesterol Salicylates Acetaminophen 10/11/18 10/11/18 10/11/18 08:29 08:42 11:05 WBC Hgb Hct MCV RDW Plt Count [place] % (Auto) [place] # Seg Neutrophils % Seg Neuts % (Manual) Lymphocytes % (Manual) Monocytes % (Manual) Seg Neutrophils # Seg Neutrophils # Man Lymphocytes # (Manual) Monocytes # (Manual) APTT 24.1 L POC ABG pH POC ABG pCO2 POC ABG pO2 Sodium 147 H Potassium Chloride 113.3 H Carbon Dioxide 21 L BUN Creatinine 1.7 H Glucose 119 H POC Glucose 164 H Lactic Acid Calcium 7.7 L Phosphorus Total Bilirubin AST ALT Total Creatine Kinase CK-MB (CK-2) Troponin T Total Protein Albumin HDL Cholesterol Salicylates Acetaminophen 10/11/18 10/11/18 10/11/18 11:05 11:06 12:30 WBC Hgb Hct MCV RDW Plt Count [place] % (Auto) [place] # Seg Neutrophils % Seg Neuts % (Manual) Lymphocytes % (Manual) Monocytes % (Manual) Seg Neutrophils # Seg Neutrophils # Man Lymphocytes # (Manual) Monocytes # (Manual) APTT POC ABG pH POC ABG pCO2 POC ABG pO2 Sodium 148 H Potassium Chloride 113.4 H Carbon Dioxide 21 L BUN Creatinine 1.6 H Glucose 119 H POC Glucose 116 H Lactic Acid 3.20 H* Calcium 7.5 L Phosphorus Total Bilirubin AST ALT Total Creatine Kinase CK-MB (CK-2) Troponin T Total Protein Albumin HDL Cholesterol Salicylates Acetaminophen 10/11/18 10/11/18 10/11/18 12:30 13:16 13:25 WBC Hgb Hct MCV RDW Plt Count [place] % (Auto) [place] # Seg Neutrophils % Seg Neuts % (Manual) Lymphocytes % (Manual) Monocytes % (Manual) Seg Neutrophils # Seg Neutrophils # Man Lymphocytes # (Manual) Monocytes # (Manual) APTT POC ABG pH 7.247 L POC ABG pCO2 48.4 H POC ABG pO2 Sodium Potassium Chloride Carbon Dioxide BUN Creatinine Glucose POC Glucose 112 H Lactic Acid 2.70 H* Calcium Phosphorus Total Bilirubin AST ALT Total Creatine Kinase CK-MB (CK-2) Troponin T Total Protein Albumin HDL Cholesterol Salicylates Acetaminophen 10/11/18 10/11/18 10/11/18 14:41 15:27 16:13 WBC Hgb Hct MCV RDW Plt Count [place] % (Auto) [place] # Seg Neutrophils % Seg Neuts % (Manual) Lymphocytes % (Manual) Monocytes % (Manual) Seg Neutrophils # Seg Neutrophils # Man Lymphocytes # (Manual) Monocytes # (Manual) APTT POC ABG pH POC ABG pCO2 POC ABG pO2 Sodium Potassium Chloride Carbon Dioxide BUN Creatinine Glucose POC Glucose 127 H 141 H 134 H Lactic Acid Calcium Phosphorus Total Bilirubin AST ALT Total Creatine Kinase CK-MB (CK-2) Troponin T Total Protein Albumin HDL Cholesterol Salicylates Acetaminophen 10/11/18 10/11/18 10/11/18 17:18 18:23 19:38 WBC Hgb Hct MCV RDW Plt Count [place] % (Auto) [place] # Seg Neutrophils % Seg Neuts % (Manual) Lymphocytes % (Manual) Monocytes % (Manual) Seg Neutrophils # Seg Neutrophils # Man Lymphocytes # (Manual) Monocytes # (Manual) APTT POC ABG pH POC ABG pCO2 POC ABG pO2 Sodium 148 H Potassium Chloride 112.7 H Carbon Dioxide BUN 23 H Creatinine Glucose 143 H POC Glucose 132 H 129 H Lactic Acid Calcium 7.9 L Phosphorus Total Bilirubin AST ALT Total Creatine Kinase CK-MB (CK-2) Troponin T Total Protein Albumin HDL Cholesterol Salicylates Acetaminophen 10/11/18 10/11/18 10/11/18 20:19 20:36 21:01 WBC Hgb Hct MCV RDW Plt Count [place] % (Auto) [place] # Seg Neutrophils % Seg Neuts % (Manual) Lymphocytes % (Manual) Monocytes % (Manual) Seg Neutrophils # Seg Neutrophils # Man Lymphocytes # (Manual) Monocytes # (Manual) APTT POC ABG pH 7.281 L POC ABG pCO2 POC ABG pO2 Sodium Potassium Chloride Carbon Dioxide BUN Creatinine Glucose POC Glucose 129 H 151 H Lactic Acid Calcium Phosphorus Total Bilirubin AST ALT Total Creatine Kinase CK-MB (CK-2) Troponin T Total Protein Albumin HDL Cholesterol Salicylates Acetaminophen 10/11/18 10/11/18 10/12/18 22:04 23:15 01:18 WBC Hgb Hct MCV RDW Plt Count [place] % (Auto) [place] # Seg Neutrophils % Seg Neuts % (Manual) Lymphocytes % (Manual) Monocytes % (Manual) Seg Neutrophils # Seg Neutrophils # Man Lymphocytes # (Manual) Monocytes # (Manual) APTT POC ABG pH POC ABG pCO2 POC ABG pO2 Sodium Potassium Chloride Carbon Dioxide BUN Creatinine Glucose POC Glucose 147 H 143 H 158 H Lactic Acid Calcium Phosphorus Total Bilirubin AST ALT Total Creatine Kinase CK-MB (CK-2) Troponin T Total Protein Albumin HDL Cholesterol Salicylates Acetaminophen 10/12/18 10/12/18 10/12/18 02:13 03:18 04:04 WBC Hgb Hct MCV RDW Plt Count [place] % (Auto) [place] # Seg Neutrophils % Seg Neuts % (Manual) Lymphocytes % (Manual) Monocytes % (Manual) Seg Neutrophils # Seg Neutrophils # Man Lymphocytes # (Manual) Monocytes # (Manual) APTT POC ABG pH POC ABG pCO2 POC ABG pO2 Sodium 147 H Potassium Chloride 111.1 H Carbon Dioxide BUN 30 H Creatinine 2.0 H Glucose 154 H POC Glucose 148 H 142 H Lactic Acid Calcium 8.1 L Phosphorus Total Bilirubin AST 269 H ALT 204 H Total Creatine Kinase 3647 H CK-MB (CK-2) 48.3 H Troponin T 2.230 H* D Total Protein 5.8 L Albumin 2.6 L HDL Cholesterol Salicylates Acetaminophen 10/12/18 10/12/18 10/12/18 04:04 04:08 04:19 WBC 24.4 H Hgb Hct MCV RDW Plt Count [place] % (Auto) [place] # Seg Neutrophils % Seg Neuts % (Manual) 32.0 L Lymphocytes % (Manual) Monocytes % (Manual) 8.0 H Seg Neutrophils # Seg Neutrophils # Man 7.8 H Lymphocytes # (Manual) Monocytes # (Manual) 2.0 H APTT POC ABG pH 7.317 L POC ABG pCO2 49.3 H POC ABG pO2 Sodium Potassium Chloride Carbon Dioxide BUN Creatinine Glucose POC Glucose 143 H Lactic Acid Calcium Phosphorus Total Bilirubin AST ALT Total Creatine Kinase CK-MB (CK-2) Troponin T Total Protein Albumin HDL Cholesterol Salicylates Acetaminophen 10/12/18 10/12/18 10/12/18 05:29 06:52 08:09 WBC Hgb Hct MCV RDW Plt Count [place] % (Auto) [place] # Seg Neutrophils % Seg Neuts % (Manual) Lymphocytes % (Manual) Monocytes % (Manual) Seg Neutrophils # Seg Neutrophils # Man Lymphocytes # (Manual) Monocytes # (Manual) APTT POC ABG pH 7.322 L POC ABG pCO2 46.5 H POC ABG pO2 Sodium Potassium Chloride Carbon Dioxide BUN Creatinine Glucose POC Glucose 196 H 226 H Lactic Acid Calcium Phosphorus Total Bilirubin AST ALT Total Creatine Kinase CK-MB (CK-2) Troponin T Total Protein Albumin HDL Cholesterol Salicylates Acetaminophen 10/12/18 10/12/18 10/12/18 08:38 10:03 15:50 WBC Hgb Hct MCV RDW Plt Count [place] % (Auto) [place] # Seg Neutrophils % Seg Neuts % (Manual) Lymphocytes % (Manual) Monocytes % (Manual) Seg Neutrophils # Seg Neutrophils # Man Lymphocytes # (Manual) Monocytes # (Manual) APTT POC ABG pH POC ABG pCO2 POC ABG pO2 Sodium Potassium Chloride Carbon Dioxide BUN Creatinine Glucose POC Glucose 138 H 148 H 221 H Lactic Acid Calcium Phosphorus Total Bilirubin AST ALT Total Creatine Kinase CK-MB (CK-2) Troponin T Total Protein Albumin HDL Cholesterol Salicylates Acetaminophen 10/12/18 10/12/18 10/12/18 18:39 20:56 21:34 WBC Hgb Hct MCV RDW Plt Count [place] % (Auto) [place] # Seg Neutrophils % Seg Neuts % (Manual) Lymphocytes % (Manual) Monocytes % (Manual) Seg Neutrophils # Seg Neutrophils # Man Lymphocytes # (Manual) Monocytes # (Manual) APTT POC ABG pH 7.336 L POC ABG pCO2 46.0 H POC ABG pO2 Sodium Potassium Chloride Carbon Dioxide BUN Creatinine Glucose POC Glucose 255 H 260 H Lactic Acid Calcium Phosphorus Total Bilirubin AST ALT Total Creatine Kinase CK-MB (CK-2) Troponin T Total Protein Albumin HDL Cholesterol Salicylates Acetaminophen 10/13/18 10/13/18 10/13/18 02:29 05:09 05:40 WBC 17.0 H Hgb Hct MCV RDW Plt Count [place] % (Auto) 9.2 H [place] # 1.6 H Seg Neutrophils % 76.2 H Seg Neuts % (Manual) Lymphocytes % (Manual) Monocytes % (Manual) Seg Neutrophils # 12.9 H Seg Neutrophils # Man Lymphocytes # (Manual) Monocytes # (Manual) APTT POC ABG pH POC ABG pCO2 POC ABG pO2 Sodium Potassium Chloride Carbon Dioxide BUN Creatinine Glucose POC Glucose 216 H 249 H Lactic Acid Calcium Phosphorus Total Bilirubin AST ALT Total Creatine Kinase CK-MB (CK-2) Troponin T Total Protein Albumin HDL Cholesterol Salicylates Acetaminophen 10/13/18 10/13/18 10/13/18 05:40 05:40 09:46 WBC Hgb Hct MCV RDW Plt Count [place] % (Auto) [place] # Seg Neutrophils % Seg Neuts % (Manual) Lymphocytes % (Manual) Monocytes % (Manual) Seg Neutrophils # Seg Neutrophils # Man Lymphocytes # (Manual) Monocytes # (Manual) APTT POC ABG pH POC ABG pCO2 POC ABG pO2 Sodium 146 H Potassium Chloride 109.8 H Carbon Dioxide BUN 35 H Creatinine Glucose 245 H POC Glucose 235 H Lactic Acid Calcium 7.9 L Phosphorus Total Bilirubin AST ALT Total Creatine Kinase CK-MB (CK-2) Troponin T 0.952 H* D Total Protein Albumin HDL Cholesterol Salicylates Acetaminophen 10/13/18 10/13/18 10/13/18 13:58 16:15 17:30 WBC Hgb Hct MCV RDW Plt Count [place] % (Auto) [place] # Seg Neutrophils % Seg Neuts % (Manual) Lymphocytes % (Manual) Monocytes % (Manual) Seg Neutrophils # Seg Neutrophils # Man Lymphocytes # (Manual) Monocytes # (Manual) APTT POC ABG pH POC ABG pCO2 51.2 H POC ABG pO2 Sodium Potassium Chloride Carbon Dioxide BUN Creatinine Glucose POC Glucose 139 H Lactic Acid Calcium Phosphorus Total Bilirubin AST ALT Total Creatine Kinase CK-MB (CK-2) Troponin T 0.816 H* Total Protein Albumin HDL Cholesterol Salicylates Acetaminophen 10/13/18 10/14/18 10/14/18 21:25 01:49 04:52 WBC Hgb Hct MCV RDW Plt Count [place] % (Auto) [place] # Seg Neutrophils % Seg Neuts % (Manual) Lymphocytes % (Manual) Monocytes % (Manual) Seg Neutrophils # Seg Neutrophils # Man Lymphocytes # (Manual) Monocytes # (Manual) APTT POC ABG pH POC ABG pCO2 56.0 H POC ABG pO2 Sodium Potassium Chloride Carbon Dioxide BUN Creatinine Glucose POC Glucose 205 H 166 H Lactic Acid Calcium Phosphorus Total Bilirubin AST ALT Total Creatine Kinase CK-MB (CK-2) Troponin T Total Protein Albumin HDL Cholesterol Salicylates Acetaminophen 10/14/18 10/14/18 10/14/18 05:32 09:45 09:45 WBC Hgb 11.4 L Hct 34.5 L MCV RDW Plt Count 139 L [place] % (Auto) [place] # Seg Neutrophils % Seg Neuts % (Manual) Lymphocytes % (Manual) Monocytes % (Manual) Seg Neutrophils # Seg Neutrophils # Man Lymphocytes # (Manual) Monocytes # (Manual) APTT POC ABG pH POC ABG pCO2 POC ABG pO2 Sodium 148 H Potassium Chloride 107.3 H Carbon Dioxide 34 H D BUN Creatinine 0.7 L D Glucose 191 H POC Glucose 164 H Lactic Acid Calcium 7.3 L Phosphorus Total Bilirubin AST 110 H ALT 91 H Total Creatine Kinase CK-MB (CK-2) Troponin T Total Protein 4.9 L Albumin 2.0 L HDL Cholesterol Salicylates Acetaminophen 10/14/18 10/14/18 10/14/18 10:54 12:20 18:30 WBC Hgb Hct MCV RDW Plt Count [place] % (Auto) [place] # Seg Neutrophils % Seg Neuts % (Manual) Lymphocytes % (Manual) Monocytes % (Manual) Seg Neutrophils # Seg Neutrophils # Man Lymphocytes # (Manual) Monocytes # (Manual) APTT POC ABG pH POC ABG pCO2 POC ABG pO2 Sodium Potassium Chloride Carbon Dioxide BUN Creatinine Glucose POC Glucose 173 H 158 H 108 H Lactic Acid Calcium Phosphorus Total Bilirubin AST ALT Total Creatine Kinase CK-MB (CK-2) Troponin T Total Protein Albumin HDL Cholesterol Salicylates Acetaminophen 10/14/18 10/15/18 10/15/18 21:54 02:12 04:19 WBC Hgb Hct MCV RDW Plt Count [place] % (Auto) [place] # Seg Neutrophils % Seg Neuts % (Manual) Lymphocytes % (Manual) Monocytes % (Manual) Seg Neutrophils # Seg Neutrophils # Man Lymphocytes # (Manual) Monocytes # (Manual) APTT POC ABG pH 7.491 H POC ABG pCO2 45.1 H POC ABG pO2 Sodium Potassium Chloride Carbon Dioxide BUN Creatinine Glucose POC Glucose 110 H 164 H Lactic Acid Calcium Phosphorus Total Bilirubin AST ALT Total Creatine Kinase CK-MB (CK-2) Troponin T Total Protein Albumin HDL Cholesterol Salicylates Acetaminophen 10/15/18 10/15/18 10/15/18 04:55 05:43 06:20 WBC Hgb 11.7 L Hct 34.7 L MCV RDW Plt Count [place] % (Auto) [place] # Seg Neutrophils % Seg Neuts % (Manual) Lymphocytes % (Manual) Monocytes % (Manual) Seg Neutrophils # Seg Neutrophils # Man Lymphocytes # (Manual) Monocytes # (Manual) APTT POC ABG pH POC ABG pCO2 47.3 H POC ABG pO2 78 L Sodium Potassium Chloride Carbon Dioxide BUN Creatinine Glucose POC Glucose 250 H Lactic Acid Calcium Phosphorus Total Bilirubin AST ALT Total Creatine Kinase CK-MB (CK-2) Troponin T Total Protein Albumin HDL Cholesterol Salicylates Acetaminophen 10/15/18 10/15/18 10/15/18 12:00 12:00 12:11 WBC Hgb 11.5 L Hct 34.0 L MCV RDW Plt Count [place] % (Auto) [place] # Seg Neutrophils % Seg Neuts % (Manual) Lymphocytes % (Manual) Monocytes % (Manual) Seg Neutrophils # Seg Neutrophils # Man Lymphocytes # (Manual) Monocytes # (Manual) APTT POC ABG pH POC ABG pCO2 POC ABG pO2 Sodium 147 H Potassium Chloride 108.5 H Carbon Dioxide BUN Creatinine 0.7 L Glucose 209 H POC Glucose 197 H Lactic Acid Calcium 7.3 L Phosphorus Total Bilirubin AST ALT Total Creatine Kinase CK-MB (CK-2) Troponin T Total Protein Albumin HDL Cholesterol Salicylates Acetaminophen 10/15/18 10/15/18 10/15/18 15:48 18:34 21:29 WBC Hgb Hct MCV RDW Plt Count [place] % (Auto) [place] # Seg Neutrophils % Seg Neuts % (Manual) Lymphocytes % (Manual) Monocytes % (Manual) Seg Neutrophils # Seg Neutrophils # Man Lymphocytes # (Manual) Monocytes # (Manual) APTT POC ABG pH POC ABG pCO2 POC ABG pO2 Sodium Potassium Chloride Carbon Dioxide BUN Creatinine Glucose POC Glucose 220 H 249 H 209 H Lactic Acid Calcium Phosphorus Total Bilirubin AST ALT Total Creatine Kinase CK-MB (CK-2) Troponin T Total Protein Albumin HDL Cholesterol Salicylates Acetaminophen 10/16/18 10/16/18 10/16/18 02:16 03:50 05:57 WBC Hgb Hct MCV RDW Plt Count [place] % (Auto) [place] # Seg Neutrophils % Seg Neuts % (Manual) Lymphocytes % (Manual) Monocytes % (Manual) Seg Neutrophils # Seg Neutrophils # Man Lymphocytes # (Manual) Monocytes # (Manual) APTT POC ABG pH POC ABG pCO2 55.8 H POC ABG pO2 Sodium Potassium Chloride Carbon Dioxide BUN Creatinine Glucose POC Glucose 110 H 209 H Lactic Acid Calcium Phosphorus Total Bilirubin AST ALT Total Creatine Kinase CK-MB (CK-2) Troponin T Total Protein Albumin HDL Cholesterol Salicylates Acetaminophen 10/16/18 10/16/18 10/16/18 10:51 12:51 15:01 WBC Hgb Hct MCV RDW Plt Count [place] % (Auto) [place] # Seg Neutrophils % Seg Neuts % (Manual) Lymphocytes % (Manual) Monocytes % (Manual) Seg Neutrophils # Seg Neutrophils # Man Lymphocytes # (Manual) Monocytes # (Manual) APTT POC ABG pH POC ABG pCO2 48.9 H POC ABG pO2 Sodium Potassium Chloride Carbon Dioxide BUN Creatinine Glucose POC Glucose 198 H 196 H Lactic Acid Calcium Phosphorus Total Bilirubin AST ALT Total Creatine Kinase CK-MB (CK-2) Troponin T Total Protein Albumin HDL Cholesterol Salicylates Acetaminophen 10/16/18 10/16/18 10/17/18 17:34 21:59 02:17 WBC Hgb Hct MCV RDW Plt Count [place] % (Auto) [place] # Seg Neutrophils % Seg Neuts % (Manual) Lymphocytes % (Manual) Monocytes % (Manual) Seg Neutrophils # Seg Neutrophils # Man Lymphocytes # (Manual) Monocytes # (Manual) APTT POC ABG pH POC ABG pCO2 POC ABG pO2 Sodium Potassium Chloride Carbon Dioxide BUN Creatinine Glucose POC Glucose 179 H 139 H 135 H Lactic Acid Calcium Phosphorus Total Bilirubin AST ALT Total Creatine Kinase CK-MB (CK-2) Troponin T Total Protein Albumin HDL Cholesterol Salicylates Acetaminophen 10/17/18 10/17/18 10/17/18 05:40 05:47 10:18 WBC Hgb 11.3 L Hct 33.2 L MCV RDW Plt Count [place] % (Auto) [place] # Seg Neutrophils % Seg Neuts % (Manual) Lymphocytes % (Manual) Monocytes % (Manual) Seg Neutrophils # Seg Neutrophils # Man Lymphocytes # (Manual) Monocytes # (Manual) APTT POC ABG pH POC ABG pCO2 POC ABG pO2 Sodium Potassium Chloride Carbon Dioxide BUN Creatinine Glucose POC Glucose 125 H 139 H Lactic Acid Calcium Phosphorus Total Bilirubin AST ALT Total Creatine Kinase CK-MB (CK-2) Troponin T Total Protein Albumin HDL Cholesterol Salicylates Acetaminophen 10/17/18 10/18/18 10/18/18 23:11 08:49 11:31 WBC Hgb Hct MCV RDW Plt Count [place] % (Auto) [place] # Seg Neutrophils % Seg Neuts % (Manual) Lymphocytes % (Manual) Monocytes % (Manual) Seg Neutrophils # Seg Neutrophils # Man Lymphocytes # (Manual) Monocytes # (Manual) APTT POC ABG pH POC ABG pCO2 POC ABG pO2 Sodium Potassium Chloride Carbon Dioxide BUN Creatinine Glucose POC Glucose 165 H 125 H 182 H Lactic Acid Calcium Phosphorus Total Bilirubin AST ALT Total Creatine Kinase CK-MB (CK-2) Troponin T Total Protein Albumin HDL Cholesterol Salicylates Acetaminophen 10/18/18 10/18/18 10/19/18 16:12 21:02 00:28 WBC Hgb 11.4 L Hct 33.6 L MCV RDW Plt Count [place] % (Auto) 14.0 H [place] # 1.2 H Seg Neutrophils % Seg Neuts % (Manual) Lymphocytes % (Manual) Monocytes % (Manual) Seg Neutrophils # Seg Neutrophils # Man Lymphocytes # (Manual) Monocytes # (Manual) APTT POC ABG pH POC ABG pCO2 POC ABG pO2 Sodium Potassium Chloride Carbon Dioxide BUN Creatinine Glucose POC Glucose 168 H 324 H Lactic Acid Calcium Phosphorus Total Bilirubin AST ALT Total Creatine Kinase CK-MB (CK-2) Troponin T Total Protein Albumin HDL Cholesterol Salicylates Acetaminophen 10/19/18 10/19/18 10/19/18 04:57 04:57 07:32 WBC Hgb 11.7 L Hct 34.0 L MCV RDW Plt Count [place] % (Auto) [place] # Seg Neutrophils % Seg Neuts % (Manual) Lymphocytes % (Manual) Monocytes % (Manual) Seg Neutrophils # Seg Neutrophils # Man Lymphocytes # (Manual) Monocytes # (Manual) APTT POC ABG pH POC ABG pCO2 POC ABG pO2 Sodium Potassium 3.5 L Chloride 108.6 H Carbon Dioxide BUN Creatinine 0.6 L Glucose POC Glucose 159 H Lactic Acid Calcium 7.9 L Phosphorus Total Bilirubin AST ALT Total Creatine Kinase CK-MB (CK-2) Troponin T Total Protein Albumin HDL Cholesterol Salicylates Acetaminophen 10/19/18 10/19/18 10/20/18 16:25 20:59 12:04 WBC Hgb Hct MCV RDW Plt Count [place] % (Auto) [place] # Seg Neutrophils % Seg Neuts % (Manual) Lymphocytes % (Manual) Monocytes % (Manual) Seg Neutrophils # Seg Neutrophils # Man Lymphocytes # (Manual) Monocytes # (Manual) APTT POC ABG pH POC ABG pCO2 POC ABG pO2 Sodium Potassium Chloride Carbon Dioxide BUN Creatinine Glucose POC Glucose 134 H 110 H 338 H Lactic Acid Calcium Phosphorus Total Bilirubin AST ALT Total Creatine Kinase CK-MB (CK-2) Troponin T Total Protein Albumin HDL Cholesterol Salicylates Acetaminophen 10/20/18 10/20/18 10/21/18 17:55 22:07 04:59 WBC Hgb 11.6 L Hct 33.9 L MCV RDW Plt Count [place] % (Auto) 9.7 H [place] # 0.9 H Seg Neutrophils % 70.7 H Seg Neuts % (Manual) Lymphocytes % (Manual) Monocytes % (Manual) Seg Neutrophils # Seg Neutrophils # Man Lymphocytes # (Manual) Monocytes # (Manual) APTT POC ABG pH POC ABG pCO2 POC ABG pO2 Sodium Potassium Chloride Carbon Dioxide BUN Creatinine Glucose POC Glucose 146 H 164 H Lactic Acid Calcium Phosphorus Total Bilirubin AST ALT Total Creatine Kinase CK-MB (CK-2) Troponin T Total Protein Albumin HDL Cholesterol Salicylates Acetaminophen 10/21/18 10/21/18 04:59 07:52 WBC Hgb Hct MCV RDW Plt Count [place] % (Auto) [place] # Seg Neutrophils % Seg Neuts % (Manual) Lymphocytes % (Manual) Monocytes % (Manual) Seg Neutrophils # Seg Neutrophils # Man Lymphocytes # (Manual) Monocytes # (Manual) APTT POC ABG pH POC ABG pCO2 POC ABG pO2 Sodium Potassium 3.5 L Chloride 107.1 H Carbon Dioxide BUN Creatinine 0.5 L Glucose 158 H POC Glucose 142 H Lactic Acid Calcium 7.5 L Phosphorus Total Bilirubin AST ALT Total Creatine Kinase CK-MB (CK-2) Troponin T Total Protein 5.6 L Albumin 2.0 L HDL Cholesterol Salicylates Acetaminophen
[2018-10-21] MEDS: HumuLIN R SUB-Q SCH ×4 (09:42→22:33)
[2018-10-21] MEDS: XANAX PO PRN ×2 (09:55→22:20)
[2018-10-21] MEDS: DILAUDID IV PRN ×3 (09:55→18:40)
[2018-10-21] MEDS: LOPRESSOR PO SCH ×2 (09:56→22:21)
[2018-10-21] MEDS: ASPIRIN PO SCH (09:56)
[2018-10-21] MEDS: PEPCID PO SCH ×2 (09:57→22:21)
--- NOTE | 2018-10-21 10:35 | Progress Note ---
Assessment and Plan The patient will need revascularization procedures on both the left and right legs. This will be scheduled likely Monday and Monday of next week. Ultimately, the patient will require amputation on the left, following revascularization will make a decision of BKA versus AKA. On the right, the patient may require a TMA at a minimum. Subjective Date of service: 10/21/18 Principal diagnosis: Ac hypercapnic hypoxemic Resp failure; Drug OD; AE-COPD; NINOSKA; Seizures Interval history: Patient with baseline arterial disease with superimposed likely embolic dominant. The patient initial presentation was secondary to a Dilaudid injection and overdose. Additionally, the patient has CVA. On examination, there is demarcation of ischemia in the left proximal calf and the right metatarsals. Objective - Constitutional Vitals: Vital Signs - 12hr 10/20/18 10/21/18 10/21/18 23:22 00:00 05:02 Temperature 97.0 F L 98 F Pulse Rate 88 88 74 Respiratory 20 21 1 L Rate Blood Pressure 100/57 Blood Pressure 141/68 [Right] O2 Sat by Pulse 93 96 Oximetry 10/21/18 10/21/18 08:00 09:56 Temperature 97.7 F Pulse Rate 82 101 H Respiratory 14 Rate Blood Pressure 119/68 Blood Pressure [Right] O2 Sat by Pulse 90 Oximetry General appearance: Present: no acute distress - EENT Eyes: EOM intact ENT: hearing intact - Neck Neck: supple - Respiratory Respiratory effort: normal - Breasts Breasts: deferred Extremities: abnormal - Gastrointestinal General gastrointestinal: Present: deferred Rectal Exam: deferred - Genitourinary Male genitourinary: deferred - Psychiatric Psychiatric: cooperative - Labs CBC & Chem 7: 10/21/18 04:59 10/21/18 04:59 Labs: Abnormal lab results 10/20/18 10/20/18 10/20/18 Range/Units 12:04 17:55 22:07 Hgb (11.8-15.2) gm/dl Hct (35.5-45.6) % [place] % (Auto) (0.0-7.3) % [place] # (0.0-0.8) K/mm3 Seg Neutrophils % (40.0-70.0) % Potassium (3.6-5.0) mmol/L Chloride (98-107) mmol/L Creatinine (0.8-1.5) mg/dL Glucose (75-100) mg/dL POC Glucose 338 H 146 H 164 H (70-105) Calcium (8.4-10.2) mg/dL Total Protein (6.3-8.2) g/dL Albumin (3.9-5) g/dL 10/21/18 10/21/18 10/21/18 Range/Units 04:59 04:59 07:52 Hgb 11.6 L (11.8-15.2) gm/dl Hct 33.9 L (35.5-45.6) % [place] % (Auto) 9.7 H (0.0-7.3) % [place] # 0.9 H (0.0-0.8) K/mm3 Seg Neutrophils % 70.7 H (40.0-70.0) % Potassium 3.5 L (3.6-5.0) mmol/L Chloride 107.1 H (98-107) mmol/L Creatinine 0.5 L (0.8-1.5) mg/dL Glucose 158 H (75-100) mg/dL POC Glucose 142 H (70-105) Calcium 7.5 L (8.4-10.2) mg/dL Total Protein 5.6 L (6.3-8.2) g/dL Albumin 2.0 L (3.9-5) g/dL Medications & Allergies - Medications Allergies/Adverse Reactions: Allergies No Known Allergies Allergy (Verified 10/31/14 11:20) Home Medications: Home Medications Medication Instructions Recorded Confirmed Last Taken Type Gabapentin [Neurontin] 90 mg PO Q8HR 04/22/15 04/22/15 04/21/15 History ALPRAZolam [Xanax TAB] 1 mg PO TID PRN #30 tablet 03/28/16 Unknown Rx Albuterol Sulfate [Ventolin HFA] 2 puff IH Q4H PRN #1 hfa.aer.ad 03/28/16 Unknown Rx Ciprofloxacin HCl [Ciprofloxacin 500 mg PO Q12HR #30 tab 03/28/16 Unknown Rx TAB] Citalopram [celeXA] 10 mg PO QDAY #30 tablet 03/28/16 Unknown Rx Nicotine [Habitrol] 14 mg TD QDAY #30 patch 03/28/16 Unknown Rx Sitagliptin Phos/Metformin HCl 1 tab PO QDAY #30 tbmp.24hr 03/28/16 Unknown Rx [Janumet XR 100-1,000 mg] oxyCODONE /ACETAMINOPHEN [Percocet 1 tab PO Q6H PRN #60 tablet 03/28/16 Unknown Rx 5/325 mg] Active Medications: Generic Name Dose Route Start Last Admin Trade Name Freq PRN Reason Stop Dose Admin Acetaminophen 650 mg 10/11/18 04:04 10/18/18 11:11 Tylenol PO 650 mg Q4H PRN Administration Pain MILD(1-3)/Fever >100.5/HOLLINS Acetaminophen 650 mg 10/18/18 11:53 Tylenol AR Q4H PRN Pain, Mild(1-3)/Fever>100.5/HOLLINS Albuterol 2.5 mg 10/19/18 00:54 Proventil IH Q4HRT PRN Shortness Of Breath Albuterol/Ipratropium 1 ampul 10/19/18 08:00 10/21/18 07:49 Duoneb *Not For Prn Use* IH 1 ampul TIDRT ISAAC Administration Alprazolam 1 mg 10/20/18 13:06 10/21/18 09:55 Xanax PO 1 mg TID PRN Administration Anxiety Lipase/Protease/Amylase 1 each 10/18/18 13:43 Pancreazalvin Mcgrath 10,500 Unit FEEDTUBE PRN PRN For Clogged Feeding Tube Aspirin 325 mg 10/13/18 10:00 10/21/18 09:56 Aspirin PO 325 mg QDAY ISAAC Administration Citalopram Hydrobromide 10 mg 10/21/18 10:00 Celexa PO QDAY ISAAC Dextrose 0 ml 10/11/18 03:57 10/11/18 10:18 D50w (25gm) Syringe IV 10 ml PRN PRN Administration Hypoglycemia Enoxaparin Sodium 40 mg 10/18/18 22:00 10/20/18 22:11 Lovenox SUB-Q 40 mg QDAY@2200 ISAAC Administration Famotidine 20 mg 10/15/18 10:00 10/21/18 09:57 Pepcid PO 20 mg BID ISAAC Administration Hydromorphone HCl 0.5 mg 10/18/18 15:40 10/21/18 09:55 Dilaudid IV 0.5 mg Q3H PRN Administration Pain , Severe (7-10) Hydrophilic Ointment 1 applic 10/11/18 14:00 Vaseline Lip Therapy TP Q2HR PRN Dry Lips Insulin Human Regular 0 units 10/17/18 11:30 10/21/18 09:42 Humulin R SUB-Q Not Given ACHS [facility] Protocol Metoprolol Tartrate 25 mg 10/18/18 22:00 10/21/18 09:56 Lopressor PO 25 mg BID ISAAC Administration Metoprolol Tartrate 2.5 mg 10/18/18 18:51 10/18/18 22:19 Lopressor IV 2.5 mg Q6H PRN Administration Tachyarrhythmias Morphine Sulfate 2 mg 10/14/18 11:29 10/20/18 18:33 Morphine IV 2 mg Q4H PRN Administration severe pain 7-10 Multi-Ingred Cream/Lotion/Oil/Oint 1 applic 10/11/18 14:00 Artificial Tears Ophth Oint OU Q4HR PRN Dry Eye(s) Ondansetron HCl 4 mg 10/11/18 04:04 Zofran IV Q8H PRN Nausea And Vomiting Oxycodone/Acetaminophen 1 tab 10/18/18 13:45 Percocet 5/325 PO Q6H PRN Pain, Moderate (4-6) Quetiapine Fumarate 200 mg 10/14/18 22:00 10/20/18 22:11 Seroquel PO 200 mg QHS ISAAC Administration Simple Syrup 15 ml 10/18/18 13:43 Simple Syrup FEEDTUBE PRN PRN Hypoglycemia Simple Syrup 30 ml 10/18/18 13:43 Simple Syrup FEEDTUBE PRN PRN Hypoglycemia Sodium Bicarbonate 325 mg 10/18/18 13:43 Sodium Bicarbonate FEEDTUBE PRN PRN For Clogged Feeding Tube Sodium Chloride 10 ml 10/11/18 10:00 10/20/18 22:12 Sodium Chloride Flush Syringe 10 Ml IV 10 ml BID ISAAC Administration Sodium Chloride 10 ml 10/11/18 04:04 Sodium Chloride Flush Syringe 10 Ml IV PRN PRN LINE FLUSH
[2018-10-21] MEDS: PERCOCET 5/325 PO PRN ×2 (11:08→16:35)
--- NOTE | 2018-10-21 12:05 | Progress Note ---
Assessment and Plan Assessment and plan: --Acute thrombus in bilateral lower extremities, 10/13/18 LE arterial doppler Not a candidate for anticoagulation with heparin drip due to recent CVA vascular planning revascularization on Monday/Monday --Possible acute/subacute right FT CVA Initial CT head, no acute finding, 10/13/18 found to have left-sided weakness MRI brain showed numerous acute/subacute multilobar infarcts involving the cerebrum and cerebellum including Hemorrhagic transformation of the right frontal and biparietal lobes was Not a candidate for tPA, monitor off aspirin per teleneurology QUIQUE ; no thrombus or shunt, Speech recommended pureed diet --Severe sepsis with shock; present on admission Probably due to aspiration pneumonia, completed total 7 days of antibiotics IV broad-spectrum antibiotics with Unasyn for total 7 days off Levophed; Blood and sputum cultures negative so far --Acute respiratory failure with hypoxia and hypercapnia: Requiring intubation, extubated, nebs , supplemental O2 as needed --LLL pneumonia with mucous plugging on CTA, POA likely from aspiration? s/p Abx total 7 days --Hyperglycemia: not in DKA cont SSI for now, diabetic diet --Acute toxic/metabolic encephalopathy, improved drug overdose ,versus sepsis/DKA vs acute CVA Initial Head CT scan was negative, repeat CT and MRI acute CVA --Seizure; seizure precautions, no new episodes of seizure Neurology following ,s/p IV lorazepam drip, Ativan when necessary . will defer to neurology for AED, EEG pending --Elevated troponin/NSTEMI type 2 secondary to demand ischemia from acute process/sepsis and underlying CHF Echocardiogram for further evaluation - Ef 25-30% Cardiology consulted, recommended medical Mx for now, --Acute systolic CHF, Ef 25-30%, anti-failure medications monitor ins/os, medical Mx for now, cardiology following --ARF, due to vasomotor nephropathy, resolved --Hyperkalemia, resolved --Abnormal LFT Probably due to sepsis and chronic hepatitis C virus infection Abdominal US showed no sign of cirrhosis --Severe protein calorie malnutrition; nutrition supplements Dietitian consulted --DVT prophylaxis with heparin and GI prophylaxis with famotidine Disposition: Patient stable to be transferred to medical floor Possible revascularization/surgical intervention on Monday and Monday Plan of care is reviewed with the patient and his nurse History Interval history: Patient seen and examined medical records reviewed Patient is mildly agitated and tried to get off the patient restrained for safety Complains of some anxiety and pain On Percocet and Xanax Vital signs reviewed Hospitalist Physical - Constitutional Vitals: Temp Pulse Resp BP Pulse Ox 97.7 F 101 H 14 119/68 90 10/21/18 08:00 10/21/18 09:56 10/21/18 08:00 10/21/18 08:00 10/21/18 08:00 General appearance: Present: no acute distress, well-nourished - EENT Eyes: Present: PERRL, EOM intact - Neck Neck: Present: supple, normal ROM - Respiratory Respiratory effort: normal Respiratory: bilateral: diminished, negative: rales, rhonchi, wheezing - Cardiovascular Rhythm: regular Heart Sounds: Present: S1 & S2 - Extremities Extremities: abnormal Extremity abnormal: erythema - Abdominal General gastrointestinal: soft, non-tender, non-distended, normal bowel sounds - Integumentary Integumentary: Present: clear, warm - Psychiatric Psychiatric: appropriate mood/affect, agitated - Neurologic Neurologic: moves all extremities Results - Labs CBC & Chem 7: 10/21/18 04:59 10/21/18 04:59 Labs: Laboratory Last Values WBC 8.8 K/mm3 (4.5-11.0) 10/21/18 04:59 RBC 3.68 M/mm3 (3.65-5.03) 10/21/18 04:59 Hgb 11.6 gm/dl (11.8-15.2) L 10/21/18 04:59 Hct 33.9 % (35.5-45.6) L 10/21/18 04:59 MCV 92 fl (84-94) 10/21/18 04:59 MCH 32 pg (28-32) 10/21/18 04:59 MCHC 34 % (32-34) 10/21/18 04:59 RDW 14.1 % (13.2-15.2) 10/21/18 04:59 Plt Count 389 K/mm3 (140-440) 10/21/18 04:59 Lymph % (Auto) 18.4 % (13.4-35.0) 10/21/18 04:59 [place] % (Auto) 9.7 % (0.0-7.3) H 10/21/18 04:59 Eos % (Auto) 0.8 % (0.0-4.3) 10/21/18 04:59 Baso % (Auto) 0.4 % (0.0-1.8) 10/21/18 04:59 Lymph # 1.6 K/mm3 (1.2-5.4) 10/21/18 04:59 [place] # 0.9 K/mm3 (0.0-0.8) H 10/21/18 04:59 Eos # 0.1 K/mm3 (0.0-0.4) 10/21/18 04:59 Baso # 0.0 K/mm3 (0.0-0.1) 10/21/18 04:59 Add Manual Diff Complete 10/12/18 04:04 Total Counted 100 10/12/18 04:04 Seg Neutrophils % 70.7 % (40.0-70.0) H 10/21/18 04:59 Seg Neuts % (Manual) 32.0 % (40.0-70.0) L 10/12/18 04:04 39.0 % 10/12/18 04:04 19.0 % (13.4-35.0) 10/12/18 04:04 Reactive Lymphs % (Man) 0 % 10/12/18 04:04 8.0 % (0.0-7.3) H 10/12/18 04:04 0 % (0.0-4.3) 10/12/18 04:04 0 % (0.0-1.8) 10/12/18 04:04 2.0 % 10/12/18 04:04 0 % 10/12/18 04:04 0 % 10/12/18 04:04 0 % 10/12/18 04:04 Nucleated RBC % Not Reportable 10/12/18 04:04 Seg Neutrophils # 6.2 K/mm3 (1.8-7.7) 10/21/18 04:59 Seg Neutrophils # Man 7.8 K/mm3 (1.8-7.7) H 10/12/18 04:04 Band Neutrophils # 9.5 K/mm3 10/12/18 04:04 4.6 K/mm3 (1.2-5.4) 10/12/18 04:04 Abs React Lymphs (Man) 0.0 K/mm3 10/12/18 04:04 2.0 K/mm3 (0.0-0.8) H 10/12/18 04:04 0.0 K/mm3 (0.0-0.4) 10/12/18 04:04 0.0 K/mm3 (0.0-0.1) 10/12/18 04:04 0.5 K/mm3 10/12/18 04:04 0.0 K/mm3 10/12/18 04:04 0.0 K/mm3 10/12/18 04:04 Blast Cells # 0.0 K/mm3 10/12/18 04:04 Pathologist Review 10/11/18 00:16 WBC Morphology Not Reportable 10/12/18 04:04 Hypersegmented Neuts Not Reportable 10/12/18 04:04 Hyposegmented Neuts Not Reportable 10/12/18 04:04 Hypogranular Neuts Not Reportable 10/12/18 04:04 Not Reportable 10/12/18 04:04 Not Reportable 10/12/18 04:04 Not Reportable 10/12/18 04:04 Not Reportable 10/12/18 04:04 Not Reportable 10/12/18 04:04 Not Reportable 10/12/18 04:04 Appears normal 10/12/18 04:04 Not Reportable 10/12/18 04:04 Plt Clumps, EDTA Not Reportable 10/12/18 04:04 Not Reportable 10/12/18 04:04 Not Reportable 10/12/18 04:04 Not Reportable 10/12/18 04:04 Plt Morphology Comment Not Reportable 10/12/18 04:04 RBC Morphology Not Reportable 10/12/18 04:04 Dimorphic RBCs Not Reportable 10/12/18 04:04 Not Reportable 10/12/18 04:04 Not Reportable 10/12/18 04:04 Not Reportable 10/12/18 04:04 1+ 10/12/18 04:04 Not Reportable 10/12/18 04:04 Not Reportable 10/12/18 04:04 Not Reportable 10/12/18 04:04 Not Reportable 10/12/18 04:04 Not Reportable 10/12/18 04:04 Not Reportable 10/12/18 04:04 Not Reportable 10/12/18 04:04 Not Reportable 10/12/18 04:04 Not Reportable 10/12/18 04:04 Not Reportable 10/12/18 04:04 Not Reportable 10/12/18 04:04 Not Reportable 10/12/18 04:04 Not Reportable 10/12/18 04:04 Not Reportable 10/12/18 04:04 Not Reportable 10/12/18 04:04 Acanthocytes (Spur) Not Reportable 10/12/18 04:04 Rouleaux Not Reportable 10/12/18 04:04 Not Reportable 10/12/18 04:04 Not Reportable 10/12/18 04:04 Not Reportable 10/12/18 04:04 Not Reportable 10/12/18 04:04 Hem Pathologist Commnt No 10/12/18 04:04 PT 14.7 Sec. (12.2-14.9) 10/11/18 08:29 INR 1.08 (0.87-1.13) 10/11/18 08:29 APTT 24.1 Sec. (24.2-36.6) L 10/11/18 08:29 Heparin Anti-Xa, Unfract Negative (Negative) 10/15/18 12:00 POC ABG pH 7.393 (7.35-7.45) 10/16/18 12:51 POC ABG pCO2 48.9 (35-45) H 10/16/18 12:51 POC ABG pO2 92 (80-105) 10/16/18 12:51 POC ABG HCO3 29.8 (22-26 mml/L) 10/16/18 12:51 POC ABG Total CO2 31 (23-27mmol/L) 10/16/18 12:51 POC ABG O2 Sat 97 10/16/18 12:51 POC ABG Base Excess 5 ((-2) - (+3)mmol/L) 10/16/18 12:51 35 % 10/16/18 12:51 Sodium 140 mmol/L (137-145) 10/21/18 04:59 Potassium 3.5 mmol/L (3.6-5.0) L 10/21/18 04:59 Chloride 107.1 mmol/L (98-107) H 10/21/18 04:59 Carbon Dioxide 23 mmol/L (22-30) 10/21/18 04:59 13 mmol/L 10/21/18 04:59 BUN 9 mg/dL (9-20) 10/21/18 04:59 0.5 mg/dL (0.8-1.5) L 10/21/18 04:59 Estimated GFR > 60 ml/min 10/21/18 04:59 18 % 10/21/18 04:59 Glucose 158 mg/dL (75-100) H 10/21/18 04:59 POC Glucose 194 (70-105) H 10/21/18 11:39 Lactic Acid 2.70 mmol/L (0.7-2.0) H* 10/11/18 12:30 Calcium 7.5 mg/dL (8.4-10.2) L 10/21/18 04:59 Phosphorus 2.80 mg/dL (2.5-4.5) 10/21/18 04:59 Magnesium 1.90 mg/dL (1.7-2.3) 10/21/18 04:59 0.60 mg/dL (0.1-1.2) 10/21/18 04:59 AST 37 units/L (5-40) 10/21/18 04:59 ALT 34 units/L (7-56) 10/21/18 04:59 47 units/L (35-129) 10/21/18 04:59 3647 units/L (55-170) H 10/12/18 04:04 CK-MB (CK-2) 48.3 ng/mL (0.0-4.0) H 10/12/18 04:04 CK-MB (CK-2) Rel Index 1.3 (0-4) 10/12/18 04:04 0.816 ng/mL (0.00-0.029) H* 10/13/18 16:15 5.6 g/dL (6.3-8.2) L 10/21/18 04:59 2.0 g/dL (3.9-5) L 10/21/18 04:59 0.6 % 10/21/18 04:59 Triglycerides 87 mg/dL (2-149) 10/11/18 00:16 Cholesterol 73 mg/dL (50-199) 10/11/18 00:16 51 mg/dL (50-130) 10/11/18 00:16 19 mg/dL (40-59) L 10/11/18 00:16 3.84 % 10/11/18 00:16 See scanned report 10/15/18 12:00 Yellow (Yellow) 10/11/18 01:42 Cloudy (Clear) 10/11/18 01:42 6.0 (5.0-7.0) 10/11/18 01:42 Ur Specific [place] 1.011 (1.003-1.030) 10/11/18 01:42 100 mg/dl mg/dL (Negative) 10/11/18 01:42 >=500 mg/dL (Negative) 10/11/18 01:42 Neg mg/dL (Negative) 10/11/18 01:42 Mod (Negative) 10/11/18 01:42 Neg (Negative) 10/11/18 01:42 Neg (Negative) 10/11/18 01:42 4.0 mg/dL (<2.0) 10/11/18 01:42 Ur Leukocyte Esterase Neg (Negative) 10/11/18 01:42 5.0 /HPF (0.0-6.0) 10/11/18 01:42 2.0 /HPF (0.0-6.0) 10/11/18 01:42 U Epithel Cells (Auto) < 1.0 /HPF (0-13.0) 10/11/18 01:42 Amorphous Crystals 1+ 10/11/18 01:42 Few /HPF 10/11/18 01:42 2+ /HPF (BEREAVEMENT PROGRAM COORDINATOR) 10/11/18 01:42 Vancomycin Trough 8.3 ug/mL (5.0-20.0) 10/13/18 05:40 Salicylates < 0.3 mg/dL (2.8-20.0) L 10/11/18 00:16 Presumptive positive 10/11/18 01:42 Presumptive negative 10/11/18 01:42 Acetaminophen < 5.0 ug/mL (10.0-30.0) L 10/11/18 00:16 Ur Barbiturates Screen Presumptive negative 10/11/18 01:42 Ur Phencyclidine Scrn Presumptive negative 10/11/18 01:42 Ur Amphetamines Screen Presumptive positive 10/11/18 01:42 U Benzodiazepines Scrn Presumptive positive 10/11/18 01:42 Presumptive negative 10/11/18 01:42 U Marijuana (THC) Screen Presumptive negative 10/11/18 01:42 Disclamer 10/11/18 01:42 Plasma/Serum Alcohol < 0.01 % (0-0.07) 10/11/18 00:16 Heparin-induced Plt Ab Negative (Negative) 10/15/18 12:00 UF Heparin High Dose 0 % Release 10/15/18 12:00 AURELIO UFH Low Dose 0.1 0 % Release 10/15/18 12:00 AURELIO UFH Low Dose 0.5 0 % Release 10/15/18 12:00 Active Medications - Current Medications Current Medications: Generic Name Dose Route Start Last Admin Trade Name Freq PRN Reason Stop Dose Admin Acetaminophen 650 mg 10/11/18 04:04 10/18/18 11:11 Tylenol PO 650 mg Q4H PRN Administration Pain MILD(1-3)/Fever >100.5/HOLLINS Acetaminophen 650 mg 10/18/18 11:53 Tylenol CA Q4H PRN Pain, Mild(1-3)/Fever>100.5/HOLLINS Albuterol 2.5 mg 10/19/18 00:54 Proventil IH Q4HRT PRN Shortness Of Breath Albuterol/Ipratropium 1 ampul 10/19/18 08:00 10/21/18 07:49 Duoneb *Not For Prn Use* IH 1 ampul TIDRT ISAAC Administration Alprazolam 1 mg 10/20/18 13:06 10/21/18 09:55 Xanax PO 1 mg TID PRN Administration Anxiety Lipase/Protease/Amylase 1 each 10/18/18 13:43 Pancreaze 10,500 Unit FEEDTUBE PRN PRN For Clogged Feeding Tube Aspirin 325 mg 10/13/18 10:00 10/21/18 09:56 Aspirin PO 325 mg QDAY ISAAC Administration Citalopram Hydrobromide 10 mg 10/21/18 10:00 Celexa PO QDAY ISAAC Dextrose 0 ml 10/11/18 03:57 10/11/18 10:18 D50w (25gm) Syringe IV 10 ml PRN PRN Administration Hypoglycemia Enoxaparin Sodium 40 mg 10/18/18 22:00 10/20/18 22:11 Lovenox SUB-Q 40 mg QDAY@2200 ISAAC Administration Famotidine 20 mg 10/15/18 10:00 10/21/18 09:57 Pepcid PO 20 mg BID ISAAC Administration Hydromorphone HCl 0.5 mg 10/18/18 15:40 10/21/18 09:55 Dilaudid IV 0.5 mg Q3H PRN Administration Pain , Severe (7-10) Hydrophilic Ointment 1 applic 10/11/18 14:00 Vaseline Lip Therapy TP Q2HR PRN Dry Lips Insulin Human Regular 0 units 10/17/18 11:30 10/21/18 09:42 Humulin R SUB-Q Not Given ACHS [facility] Protocol Metoprolol Tartrate 25 mg 10/18/18 22:00 10/21/18 09:56 Lopressor PO 25 mg BID ISAAC Administration Metoprolol Tartrate 2.5 mg 10/18/18 18:51 10/18/18 22:19 Lopressor IV 2.5 mg Q6H PRN Administration Tachyarrhythmias Morphine Sulfate 2 mg 10/14/18 11:29 10/20/18 18:33 Morphine IV 2 mg Q4H PRN Administration severe pain 7-10 Multi-Ingred Cream/Lotion/Oil/Oint 1 applic 10/11/18 14:00 Artificial Tears Ophth Oint OU Q4HR PRN Dry Eye(s) Ondansetron HCl 4 mg 10/11/18 04:04 Zofran IV Q8H PRN Nausea And Vomiting Oxycodone/Acetaminophen 1 tab 10/18/18 13:45 10/21/18 11:08 Percocet 5/325 PO 1 tab Q6H PRN Administration Pain, Moderate (4-6) Quetiapine Fumarate 200 mg 10/14/18 22:00 10/20/18 22:11 Seroquel PO 200 mg QHS [facility] Administration Simple Syrup 15 ml 10/18/18 13:43 Simple Syrup FEEDTUBE PRN PRN Hypoglycemia Simple Syrup 30 ml 10/18/18 13:43 Simple Syrup FEEDTUBE PRN PRN Hypoglycemia Sodium Bicarbonate 325 mg 10/18/18 13:43 Sodium Bicarbonate FEEDTUBE PRN PRN For Clogged Feeding Tube Sodium Chloride 10 ml 10/11/18 10:00 10/20/18 22:12 Sodium Chloride Flush Syringe 10 Ml IV 10 ml BID ISAAC Administration Sodium Chloride 10 ml 10/11/18 04:04 Sodium Chloride Flush Syringe 10 Ml IV PRN PRN LINE FLUSH Nutrition/Malnutrition Assess - Dietary Evaluation Nutrition/Malnutrition Findings: Nutrition Notes Start: 10/11/18 12:39 Freq: Status: Active Protocol: Document 10/19/18 16:24 RM (Rec: 10/19/18 16:30 RM [email or web address]) Nutrition Notes Initial or Follow up Reassessment Current Diagnosis Acute Kidney Injury,COPD, Diabetes,Hypertension,Stroke Other Pertinent Diagnosis Hepatitis C, cellulitis, Polysubstabce abuse, Opiate overdose, AMS Current Diet Pureed Labs/Tests Reviewed Pertinent Medications Reviewed Height 6 ft 3 in Weight 64.1 kg [place] Body Weight (kg) 89.09 BMI 17.6 Subjective/Other Information Consulted for TF recommendation again. Pureed diet recommended per acute care progress note . Per MD there are no plans for TF. Nurse stated that pt is not eating much of pureed diet and requested ONS. Burn Absent Trauma Absent #2 Nutrition Diagnosis Inadequate oral intake Diagnosis Progress(for reassessment Continues documentation) #1 Nutrition Diagnosis Malnutrition Diagnosis Progress(for reassessment Continues documentation) Is patient on ventilator? No Is Patient Ambulatory and/or Out of Bed No REE-([facility]-confined to bed) [phone] Kcal/Kg value to use for calculation 36 Approximate Energy Requirements Using 2308 kcal/Kg Calculation Used for Recommendations Kcal/kg Additional Notes Protein Needs: 79-99g (1.2-1. 5g/kg) Fluid Needs: 1 ml/kcal Nutrition Intervention Change Diet Order: Pureed, Cardiac/Consistent CHO Add Supplement/Snack (indicate name/kcal Glucerna 1 daily /protein ) Provides kCal: 220 Provides Protein (gm) 10 Goal #1 Meet at least 75% of calorie and protein needs via PO and ONS intakes Goal #2 Wt gain/maintenance Anticipated Discharge Needs: Unknown at this time Follow-Up By: 10/22/18 Additional Comments Follow for PO and ONS intakes
[2018-10-21] MEDS: celeXA PO SCH (12:29)
[2018-10-21] MEDS: SODIUM CHLORIDE FLUSH SYRINGE 10 ML IV SCH (12:29)
--- NOTE | 2018-10-21 16:03 | Progress Note ---
Assessment and Plan Acute hypoxemic respiratory failure, on mechanical ventilator support. Drug overdose. Acute chronic obstructive pulmonary disease exacerbation. Witnessed seizure en route. Acute kidney injury. Leukocytosis. Hypercapnia. Hyperkalemia. Metabolic acidosis. Lactic acidosis. Non-ST elevation myocardial infarction. Elevated serum transaminases. 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 Target glucose of 140-180 mg/dL - Maintenance of sleep -wake cycle - Mobility protocol for pressure ulcer prophylaxis - Influenza and pneumonia vaccination per protocol ...... re-evaluate in am & prn Subjective Date of service: 10/21/18 Principal diagnosis: Ac hypercapnic hypoxemic Resp failure; Drug OD; AE-COPD; NINOSKA; Seizures Interval history: Patient is seen today for: Acute hypoxemic respiratory failure, on mechanical ventilator support; Drug overdose; Acute chronic obstructive pulmonary disease exacerbation; Witnessed seizure en route; Acute kidney injury; Leukocytosis; Hypercapnia. Seen and examined at bedside; 24-hour events reviewed; nursing and respiratory care staff consulted; no adverse overnight events reported to me; resting peacefully in bed; denies acute chest pains or palpitations; with intermittent oxygen needs; hemiparesis is persistent. Objective Vital Signs - 12hr 10/21/18 10/21/18 10/21/18 05:02 07:49 08:00 Temperature 98 F 97.7 F Pulse Rate 74 82 Pulse Rate [ 79 82 Anterior Bilateral Throughout] Respiratory 1 L 14 Rate Respiratory 20 20 Rate [Anterior Bilateral Throughout] Blood Pressure 119/68 Blood Pressure 141/68 [Right] O2 Sat by Pulse 96 90 Oximetry 10/21/18 10/21/18 09:56 12:42 Temperature 98.2 F Pulse Rate 101 H 85 Pulse Rate [ Anterior Bilateral Throughout] Respiratory 16 Rate Respiratory Rate [Anterior Bilateral Throughout] Blood Pressure 104/55 Blood Pressure [Right] O2 Sat by Pulse 95 Oximetry Constitutional: no acute distress, other (middle aged but chronically ill looking CM; Atraumatic) Eyes: non-icteric ENT: oropharynx moist, other (mallampati 2) Neck: supple, no lymphadenopathy, no JVD Effort: normal Ascultation: Bilateral: diminished breath sounds, rhonchi Percussion: Bilateral: not dull Cardiovascular: irregular rhythm, other (No R/M) Gastrointestinal: normoactive bowel sounds, soft, non-tender, non-distended Integumentary: other (poor turgor) Extremities: no edema, no ischemia or petechiae, other (cool left leg campbell-down; with digital gangrene of left foot also) Neurologic: normal mental status, pupils equal and round, other (Left h emiparesis, improving) Psychiatric: mood appropriate, affect normal CBC and BMP: 10/24/18 05:56 10/24/18 05:56 ABG, PT/INR, D-dimer: ABG POC ABG pH 7.393 (7.35-7.45) 10/16/18 12:51 POC ABG pCO2 48.9 (35-45) H 10/16/18 12:51 POC ABG pO2 92 (80-105) 10/16/18 12:51 POC ABG HCO3 29.8 (22-26 mml/L) 10/16/18 12:51 POC ABG Total CO2 31 (23-27mmol/L) 10/16/18 12:51 POC ABG O2 Sat 97 10/16/18 12:51 PT/INR, D-dimer PT 14.7 Sec. (12.2-14.9) 10/11/18 08:29 INR 1.08 (0.87-1.13) 10/11/18 08:29 Abnormal lab findings: Abnormal Labs 10/11/18 10/11/18 10/11/18 00:16 00:16 00:16 WBC 20.1 H Hgb Hct MCV 98 H RDW 15.4 H Plt Count [place] % (Auto) [place] # Seg Neutrophils % Seg Neuts % (Manual) Lymphocytes % (Manual) 5.0 L Monocytes % (Manual) 25.0 H Seg Neutrophils # Seg Neutrophils # Man 9.2 H Lymphocytes # (Manual) 1.0 L Monocytes # (Manual) 5.0 H APTT POC ABG pH POC ABG pCO2 POC ABG pO2 Sodium Potassium 5.8 H Chloride Carbon Dioxide 17 L BUN Creatinine 2.2 H Glucose 348 H POC Glucose Lactic Acid 13.70 H* Calcium 7.7 L Phosphorus Total Bilirubin 1.50 H AST 179 H ALT 110 H Total Creatine Kinase 324 H CK-MB (CK-2) Troponin T 0.257 H* Total Protein 5.9 L Albumin 2.9 L HDL Cholesterol 19 L Salicylates Acetaminophen 10/11/18 10/11/18 10/11/18 00:16 00:16 01:21 WBC Hgb Hct MCV RDW Plt Count [place] % (Auto) [place] # Seg Neutrophils % Seg Neuts % (Manual) Lymphocytes % (Manual) Monocytes % (Manual) Seg Neutrophils # Seg Neutrophils # Man Lymphocytes # (Manual) Monocytes # (Manual) APTT POC ABG pH 7.110 L POC ABG pCO2 50.3 H POC ABG pO2 65 L Sodium Potassium Chloride Carbon Dioxide BUN Creatinine Glucose POC Glucose Lactic Acid Calcium Phosphorus Total Bilirubin AST ALT Total Creatine Kinase CK-MB (CK-2) Troponin T Total Protein Albumin HDL Cholesterol Salicylates < 0.3 L Acetaminophen < 5.0 L 10/11/18 10/11/18 10/11/18 01:22 03:27 04:14 WBC Hgb Hct MCV RDW Plt Count [place] % (Auto) [place] # Seg Neutrophils % Seg Neuts % (Manual) Lymphocytes % (Manual) Monocytes % (Manual) Seg Neutrophils # Seg Neutrophils # Man Lymphocytes # (Manual) Monocytes # (Manual) APTT POC ABG pH POC ABG pCO2 POC ABG pO2 Sodium Potassium Chloride Carbon Dioxide BUN Creatinine Glucose POC Glucose Lactic Acid 8.50 H* 4.10 H* Calcium Phosphorus 4.90 H Total Bilirubin AST ALT Total Creatine Kinase CK-MB (CK-2) Troponin T Total Protein Albumin HDL Cholesterol Salicylates Acetaminophen 10/11/18 10/11/18 10/11/18 04:14 04:14 04:14 WBC Hgb Hct MCV RDW Plt Count [place] % (Auto) [place] # Seg Neutrophils % Seg Neuts % (Manual) Lymphocytes % (Manual) Monocytes % (Manual) Seg Neutrophils # Seg Neutrophils # Man Lymphocytes # (Manual) Monocytes # (Manual) APTT POC ABG pH POC ABG pCO2 POC ABG pO2 Sodium Potassium 5.6 H Chloride Carbon Dioxide 19 L BUN Creatinine 1.6 H Glucose 329 H POC Glucose 328 H Lactic Acid Calcium 7.3 L Phosphorus Total Bilirubin AST ALT Total Creatine Kinase CK-MB (CK-2) Troponin T 1.130 H* D Total Protein Albumin HDL Cholesterol Salicylates Acetaminophen 10/11/18 10/11/18 10/11/18 05:10 05:32 05:58 WBC Hgb Hct MCV RDW Plt Count [place] % (Auto) [place] # Seg Neutrophils % Seg Neuts % (Manual) Lymphocytes % (Manual) Monocytes % (Manual) Seg Neutrophils # Seg Neutrophils # Man Lymphocytes # (Manual) Monocytes # (Manual) APTT POC ABG pH 7.259 L POC ABG pCO2 45.6 H POC ABG pO2 Sodium Potassium Chloride 108.6 H Carbon Dioxide 20 L BUN Creatinine 1.8 H Glucose 269 H POC Glucose 273 H Lactic Acid Calcium 7.0 L Phosphorus Total Bilirubin AST ALT Total Creatine Kinase CK-MB (CK-2) Troponin T Total Protein Albumin HDL Cholesterol Salicylates Acetaminophen 10/11/18 10/11/18 10/11/18 05:58 06:39 07:00 WBC Hgb Hct MCV RDW Plt Count [place] % (Auto) [place] # Seg Neutrophils % Seg Neuts % (Manual) Lymphocytes % (Manual) Monocytes % (Manual) Seg Neutrophils # Seg Neutrophils # Man Lymphocytes # (Manual) Monocytes # (Manual) APTT POC ABG pH POC ABG pCO2 POC ABG pO2 Sodium Potassium Chloride Carbon Dioxide BUN Creatinine Glucose POC Glucose 247 H Lactic Acid 3.20 H* 3.30 H* Calcium Phosphorus Total Bilirubin AST ALT Total Creatine Kinase CK-MB (CK-2) Troponin T Total Protein Albumin HDL Cholesterol Salicylates Acetaminophen 10/11/18 10/11/18 10/11/18 07:00 07:30 07:36 WBC Hgb Hct MCV RDW Plt Count [place] % (Auto) [place] # Seg Neutrophils % Seg Neuts % (Manual) Lymphocytes % (Manual) Monocytes % (Manual) Seg Neutrophils # Seg Neutrophils # Man Lymphocytes # (Manual) Monocytes # (Manual) APTT POC ABG pH POC ABG pCO2 POC ABG pO2 Sodium 146 H Potassium Chloride 112.1 H Carbon Dioxide 21 L BUN Creatinine 1.6 H Glucose 218 H POC Glucose Lactic Acid 3.20 H* Calcium 7.0 L Phosphorus Total Bilirubin AST ALT Total Creatine Kinase CK-MB (CK-2) Troponin T 1.020 H* Total Protein Albumin HDL Cholesterol Salicylates Acetaminophen 10/11/18 10/11/18 10/11/18 07:43 08:29 08:29 WBC Hgb 16.2 H Hct 49.9 H D MCV RDW Plt Count [place] % (Auto) [place] # Seg Neutrophils % Seg Neuts % (Manual) Lymphocytes % (Manual) Monocytes % (Manual) Seg Neutrophils # Seg Neutrophils # Man Lymphocytes # (Manual) Monocytes # (Manual) APTT POC ABG pH POC ABG pCO2 POC ABG pO2 Sodium Potassium Chloride Carbon Dioxide BUN Creatinine Glucose POC Glucose 174 H Lactic Acid 3.90 H* Calcium Phosphorus Total Bilirubin AST ALT Total Creatine Kinase CK-MB (CK-2) Troponin T Total Protein Albumin HDL Cholesterol Salicylates Acetaminophen 10/11/18 10/11/18 10/11/18 08:29 08:42 11:05 WBC Hgb Hct MCV RDW Plt Count [place] % (Auto) [place] # Seg Neutrophils % Seg Neuts % (Manual) Lymphocytes % (Manual) Monocytes % (Manual) Seg Neutrophils # Seg Neutrophils # Man Lymphocytes # (Manual) Monocytes # (Manual) APTT 24.1 L POC ABG pH POC ABG pCO2 POC ABG pO2 Sodium 147 H Potassium Chloride 113.3 H Carbon Dioxide 21 L BUN Creatinine 1.7 H Glucose 119 H POC Glucose 164 H Lactic Acid Calcium 7.7 L Phosphorus Total Bilirubin AST ALT Total Creatine Kinase CK-MB (CK-2) Troponin T Total Protein Albumin HDL Cholesterol Salicylates Acetaminophen 10/11/18 10/11/18 10/11/18 11:05 11:06 12:30 WBC Hgb Hct MCV RDW Plt Count [place] % (Auto) [place] # Seg Neutrophils % Seg Neuts % (Manual) Lymphocytes % (Manual) Monocytes % (Manual) Seg Neutrophils # Seg Neutrophils # Man Lymphocytes # (Manual) Monocytes # (Manual) APTT POC ABG pH POC ABG pCO2 POC ABG pO2 Sodium 148 H Potassium Chloride 113.4 H Carbon Dioxide 21 L BUN Creatinine 1.6 H Glucose 119 H POC Glucose 116 H Lactic Acid 3.20 H* Calcium 7.5 L Phosphorus Total Bilirubin AST ALT Total Creatine Kinase CK-MB (CK-2) Troponin T Total Protein Albumin HDL Cholesterol Salicylates Acetaminophen 10/11/18 10/11/18 10/11/18 12:30 13:16 13:25 WBC Hgb Hct MCV RDW Plt Count [place] % (Auto) [place] # Seg Neutrophils % Seg Neuts % (Manual) Lymphocytes % (Manual) Monocytes % (Manual) Seg Neutrophils # Seg Neutrophils # Man Lymphocytes # (Manual) Monocytes # (Manual) APTT POC ABG pH 7.247 L POC ABG pCO2 48.4 H POC ABG pO2 Sodium Potassium Chloride Carbon Dioxide BUN Creatinine Glucose POC Glucose 112 H Lactic Acid 2.70 H* Calcium Phosphorus Total Bilirubin AST ALT Total Creatine Kinase CK-MB (CK-2) Troponin T Total Protein Albumin HDL Cholesterol Salicylates Acetaminophen 10/11/18 10/11/18 10/11/18 14:41 15:27 16:13 WBC Hgb Hct MCV RDW Plt Count [place] % (Auto) [place] # Seg Neutrophils % Seg Neuts % (Manual) Lymphocytes % (Manual) Monocytes % (Manual) Seg Neutrophils # Seg Neutrophils # Man Lymphocytes # (Manual) Monocytes # (Manual) APTT POC ABG pH POC ABG pCO2 POC ABG pO2 Sodium Potassium Chloride Carbon Dioxide BUN Creatinine Glucose POC Glucose 127 H 141 H 134 H Lactic Acid Calcium Phosphorus Total Bilirubin AST ALT Total Creatine Kinase CK-MB (CK-2) Troponin T Total Protein Albumin HDL Cholesterol Salicylates Acetaminophen 10/11/18 10/11/18 10/11/18 17:18 18:23 19:38 WBC Hgb Hct MCV RDW Plt Count [place] % (Auto) [place] # Seg Neutrophils % Seg Neuts % (Manual) Lymphocytes % (Manual) Monocytes % (Manual) Seg Neutrophils # Seg Neutrophils # Man Lymphocytes # (Manual) Monocytes # (Manual) APTT POC ABG pH POC ABG pCO2 POC ABG pO2 Sodium 148 H Potassium Chloride 112.7 H Carbon Dioxide BUN 23 H Creatinine Glucose 143 H POC Glucose 132 H 129 H Lactic Acid Calcium 7.9 L Phosphorus Total Bilirubin AST ALT Total Creatine Kinase CK-MB (CK-2) Troponin T Total Protein Albumin HDL Cholesterol Salicylates Acetaminophen 10/11/18 10/11/18 10/11/18 20:19 20:36 21:01 WBC Hgb Hct MCV RDW Plt Count [place] % (Auto) [place] # Seg Neutrophils % Seg Neuts % (Manual) Lymphocytes % (Manual) Monocytes % (Manual) Seg Neutrophils # Seg Neutrophils # Man Lymphocytes # (Manual) Monocytes # (Manual) APTT POC ABG pH 7.281 L POC ABG pCO2 POC ABG pO2 Sodium Potassium Chloride Carbon Dioxide BUN Creatinine Glucose POC Glucose 129 H 151 H Lactic Acid Calcium Phosphorus Total Bilirubin AST ALT Total Creatine Kinase CK-MB (CK-2) Troponin T Total Protein Albumin HDL Cholesterol Salicylates Acetaminophen 10/11/18 10/11/18 10/12/18 22:04 23:15 01:18 WBC Hgb Hct MCV RDW Plt Count [place] % (Auto) [place] # Seg Neutrophils % Seg Neuts % (Manual) Lymphocytes % (Manual) Monocytes % (Manual) Seg Neutrophils # Seg Neutrophils # Man Lymphocytes # (Manual) Monocytes # (Manual) APTT POC ABG pH POC ABG pCO2 POC ABG pO2 Sodium Potassium Chloride Carbon Dioxide BUN Creatinine Glucose POC Glucose 147 H 143 H 158 H Lactic Acid Calcium Phosphorus Total Bilirubin AST ALT Total Creatine Kinase CK-MB (CK-2) Troponin T Total Protein Albumin HDL Cholesterol Salicylates Acetaminophen 10/12/18 10/12/18 10/12/18 02:13 03:18 04:04 WBC Hgb Hct MCV RDW Plt Count [place] % (Auto) [place] # Seg Neutrophils % Seg Neuts % (Manual) Lymphocytes % (Manual) Monocytes % (Manual) Seg Neutrophils # Seg Neutrophils # Man Lymphocytes # (Manual) Monocytes # (Manual) APTT POC ABG pH POC ABG pCO2 POC ABG pO2 Sodium 147 H Potassium Chloride 111.1 H Carbon Dioxide BUN 30 H Creatinine 2.0 H Glucose 154 H POC Glucose 148 H 142 H Lactic Acid Calcium 8.1 L Phosphorus Total Bilirubin AST 269 H ALT 204 H Total Creatine Kinase 3647 H CK-MB (CK-2) 48.3 H Troponin T 2.230 H* D Total Protein 5.8 L Albumin 2.6 L HDL Cholesterol Salicylates Acetaminophen 10/12/18 10/12/18 10/12/18 04:04 04:08 04:19 WBC 24.4 H Hgb Hct MCV RDW Plt Count [place] % (Auto) [place] # Seg Neutrophils % Seg Neuts % (Manual) 32.0 L Lymphocytes % (Manual) Monocytes % (Manual) 8.0 H Seg Neutrophils # Seg Neutrophils # Man 7.8 H Lymphocytes # (Manual) Monocytes # (Manual) 2.0 H APTT POC ABG pH 7.317 L POC ABG pCO2 49.3 H POC ABG pO2 Sodium Potassium Chloride Carbon Dioxide BUN Creatinine Glucose POC Glucose 143 H Lactic Acid Calcium Phosphorus Total Bilirubin AST ALT Total Creatine Kinase CK-MB (CK-2) Troponin T Total Protein Albumin HDL Cholesterol Salicylates Acetaminophen 10/12/18 10/12/18 10/12/18 05:29 06:52 08:09 WBC Hgb Hct MCV RDW Plt Count [place] % (Auto) [place] # Seg Neutrophils % Seg Neuts % (Manual) Lymphocytes % (Manual) Monocytes % (Manual) Seg Neutrophils # Seg Neutrophils # Man Lymphocytes # (Manual) Monocytes # (Manual) APTT POC ABG pH 7.322 L POC ABG pCO2 46.5 H POC ABG pO2 Sodium Potassium Chloride Carbon Dioxide BUN Creatinine Glucose POC Glucose 196 H 226 H Lactic Acid Calcium Phosphorus Total Bilirubin AST ALT Total Creatine Kinase CK-MB (CK-2) Troponin T Total Protein Albumin HDL Cholesterol Salicylates Acetaminophen 10/12/18 10/12/18 10/12/18 08:38 10:03 15:50 WBC Hgb Hct MCV RDW Plt Count [place] % (Auto) [place] # Seg Neutrophils % Seg Neuts % (Manual) Lymphocytes % (Manual) Monocytes % (Manual) Seg Neutrophils # Seg Neutrophils # Man Lymphocytes # (Manual) Monocytes # (Manual) APTT POC ABG pH POC ABG pCO2 POC ABG pO2 Sodium Potassium Chloride Carbon Dioxide BUN Creatinine Glucose POC Glucose 138 H 148 H 221 H Lactic Acid Calcium Phosphorus Total Bilirubin AST ALT Total Creatine Kinase CK-MB (CK-2) Troponin T Total Protein Albumin HDL Cholesterol Salicylates Acetaminophen 10/12/18 10/12/18 10/12/18 18:39 20:56 21:34 WBC Hgb Hct MCV RDW Plt Count [place] % (Auto) [place] # Seg Neutrophils % Seg Neuts % (Manual) Lymphocytes % (Manual) Monocytes % (Manual) Seg Neutrophils # Seg Neutrophils # Man Lymphocytes # (Manual) Monocytes # (Manual) APTT POC ABG pH 7.336 L POC ABG pCO2 46.0 H POC ABG pO2 Sodium Potassium Chloride Carbon Dioxide BUN Creatinine Glucose POC Glucose 255 H 260 H Lactic Acid Calcium Phosphorus Total Bilirubin AST ALT Total Creatine Kinase CK-MB (CK-2) Troponin T Total Protein Albumin HDL Cholesterol Salicylates Acetaminophen 10/13/18 10/13/18 10/13/18 02:29 05:09 05:40 WBC 17.0 H Hgb Hct MCV RDW Plt Count [place] % (Auto) 9.2 H [place] # 1.6 H Seg Neutrophils % 76.2 H Seg Neuts % (Manual) Lymphocytes % (Manual) Monocytes % (Manual) Seg Neutrophils # 12.9 H Seg Neutrophils # Man Lymphocytes # (Manual) Monocytes # (Manual) APTT POC ABG pH POC ABG pCO2 POC ABG pO2 Sodium Potassium Chloride Carbon Dioxide BUN Creatinine Glucose POC Glucose 216 H 249 H Lactic Acid Calcium Phosphorus Total Bilirubin AST ALT Total Creatine Kinase CK-MB (CK-2) Troponin T Total Protein Albumin HDL Cholesterol Salicylates Acetaminophen 10/13/18 10/13/18 10/13/18 05:40 05:40 09:46 WBC Hgb Hct MCV RDW Plt Count [place] % (Auto) [place] # Seg Neutrophils % Seg Neuts % (Manual) Lymphocytes % (Manual) Monocytes % (Manual) Seg Neutrophils # Seg Neutrophils # Man Lymphocytes # (Manual) Monocytes # (Manual) APTT POC ABG pH POC ABG pCO2 POC ABG pO2 Sodium 146 H Potassium Chloride 109.8 H Carbon Dioxide BUN 35 H Creatinine Glucose 245 H POC Glucose 235 H Lactic Acid Calcium 7.9 L Phosphorus Total Bilirubin AST ALT Total Creatine Kinase CK-MB (CK-2) Troponin T 0.952 H* D Total Protein Albumin HDL Cholesterol Salicylates Acetaminophen 10/13/18 10/13/18 10/13/18 13:58 16:15 17:30 WBC Hgb Hct MCV RDW Plt Count [place] % (Auto) [place] # Seg Neutrophils % Seg Neuts % (Manual) Lymphocytes % (Manual) Monocytes % (Manual) Seg Neutrophils # Seg Neutrophils # Man Lymphocytes # (Manual) Monocytes # (Manual) APTT POC ABG pH POC ABG pCO2 51.2 H POC ABG pO2 Sodium Potassium Chloride Carbon Dioxide BUN Creatinine Glucose POC Glucose 139 H Lactic Acid Calcium Phosphorus Total Bilirubin AST ALT Total Creatine Kinase CK-MB (CK-2) Troponin T 0.816 H* Total Protein Albumin HDL Cholesterol Salicylates Acetaminophen 10/13/18 10/14/18 10/14/18 21:25 01:49 04:52 WBC Hgb Hct MCV RDW Plt Count [place] % (Auto) [place] # Seg Neutrophils % Seg Neuts % (Manual) Lymphocytes % (Manual) Monocytes % (Manual) Seg Neutrophils # Seg Neutrophils # Man Lymphocytes # (Manual) Monocytes # (Manual) APTT POC ABG pH POC ABG pCO2 56.0 H POC ABG pO2 Sodium Potassium Chloride Carbon Dioxide BUN Creatinine Glucose POC Glucose 205 H 166 H Lactic Acid Calcium Phosphorus Total Bilirubin AST ALT Total Creatine Kinase CK-MB (CK-2) Troponin T Total Protein Albumin HDL Cholesterol Salicylates Acetaminophen 10/14/18 10/14/18 10/14/18 05:32 09:45 09:45 WBC Hgb 11.4 L Hct 34.5 L MCV RDW Plt Count 139 L [place] % (Auto) [place] # Seg Neutrophils % Seg Neuts % (Manual) Lymphocytes % (Manual) Monocytes % (Manual) Seg Neutrophils # Seg Neutrophils # Man Lymphocytes # (Manual) Monocytes # (Manual) APTT POC ABG pH POC ABG pCO2 POC ABG pO2 Sodium 148 H Potassium Chloride 107.3 H Carbon Dioxide 34 H D BUN Creatinine 0.7 L D Glucose 191 H POC Glucose 164 H Lactic Acid Calcium 7.3 L Phosphorus Total Bilirubin AST 110 H ALT 91 H Total Creatine Kinase CK-MB (CK-2) Troponin T Total Protein 4.9 L Albumin 2.0 L HDL Cholesterol Salicylates Acetaminophen 10/14/18 10/14/18 10/14/18 10:54 12:20 18:30 WBC Hgb Hct MCV RDW Plt Count [place] % (Auto) [place] # Seg Neutrophils % Seg Neuts % (Manual) Lymphocytes % (Manual) Monocytes % (Manual) Seg Neutrophils # Seg Neutrophils # Man Lymphocytes # (Manual) Monocytes # (Manual) APTT POC ABG pH POC ABG pCO2 POC ABG pO2 Sodium Potassium Chloride Carbon Dioxide BUN Creatinine Glucose POC Glucose 173 H 158 H 108 H Lactic Acid Calcium Phosphorus Total Bilirubin AST ALT Total Creatine Kinase CK-MB (CK-2) Troponin T Total Protein Albumin HDL Cholesterol Salicylates Acetaminophen 10/14/18 10/15/18 10/15/18 21:54 02:12 04:19 WBC Hgb Hct MCV RDW Plt Count [place] % (Auto) [place] # Seg Neutrophils % Seg Neuts % (Manual) Lymphocytes % (Manual) Monocytes % (Manual) Seg Neutrophils # Seg Neutrophils # Man Lymphocytes # (Manual) Monocytes # (Manual) APTT POC ABG pH 7.491 H POC ABG pCO2 45.1 H POC ABG pO2 Sodium Potassium Chloride Carbon Dioxide BUN Creatinine Glucose POC Glucose 110 H 164 H Lactic Acid Calcium Phosphorus Total Bilirubin AST ALT Total Creatine Kinase CK-MB (CK-2) Troponin T Total Protein Albumin HDL Cholesterol Salicylates Acetaminophen 10/15/18 10/15/18 10/15/18 04:55 05:43 06:20 WBC Hgb 11.7 L Hct 34.7 L MCV RDW Plt Count [place] % (Auto) [place] # Seg Neutrophils % Seg Neuts % (Manual) Lymphocytes % (Manual) Monocytes % (Manual) Seg Neutrophils # Seg Neutrophils # Man Lymphocytes # (Manual) Monocytes # (Manual) APTT POC ABG pH POC ABG pCO2 47.3 H POC ABG pO2 78 L Sodium Potassium Chloride Carbon Dioxide BUN Creatinine Glucose POC Glucose 250 H Lactic Acid Calcium Phosphorus Total Bilirubin AST ALT Total Creatine Kinase CK-MB (CK-2) Troponin T Total Protein Albumin HDL Cholesterol Salicylates Acetaminophen 10/15/18 10/15/18 10/15/18 12:00 12:00 12:11 WBC Hgb 11.5 L Hct 34.0 L MCV RDW Plt Count [place] % (Auto) [place] # Seg Neutrophils % Seg Neuts % (Manual) Lymphocytes % (Manual) Monocytes % (Manual) Seg Neutrophils # Seg Neutrophils # Man Lymphocytes # (Manual) Monocytes # (Manual) APTT POC ABG pH POC ABG pCO2 POC ABG pO2 Sodium 147 H Potassium Chloride 108.5 H Carbon Dioxide BUN Creatinine 0.7 L Glucose 209 H POC Glucose 197 H Lactic Acid Calcium 7.3 L Phosphorus Total Bilirubin AST ALT Total Creatine Kinase CK-MB (CK-2) Troponin T Total Protein Albumin HDL Cholesterol Salicylates Acetaminophen 10/15/18 10/15/18 10/15/18 15:48 18:34 21:29 WBC Hgb Hct MCV RDW Plt Count [place] % (Auto) [place] # Seg Neutrophils % Seg Neuts % (Manual) Lymphocytes % (Manual) Monocytes % (Manual) Seg Neutrophils # Seg Neutrophils # Man Lymphocytes # (Manual) Monocytes # (Manual) APTT POC ABG pH POC ABG pCO2 POC ABG pO2 Sodium Potassium Chloride Carbon Dioxide BUN Creatinine Glucose POC Glucose 220 H 249 H 209 H Lactic Acid Calcium Phosphorus Total Bilirubin AST ALT Total Creatine Kinase CK-MB (CK-2) Troponin T Total Protein Albumin HDL Cholesterol Salicylates Acetaminophen 10/16/18 10/16/18 10/16/18 02:16 03:50 05:57 WBC Hgb Hct MCV RDW Plt Count [place] % (Auto) [place] # Seg Neutrophils % Seg Neuts % (Manual) Lymphocytes % (Manual) Monocytes % (Manual) Seg Neutrophils # Seg Neutrophils # Man Lymphocytes # (Manual) Monocytes # (Manual) APTT POC ABG pH POC ABG pCO2 55.8 H POC ABG pO2 Sodium Potassium Chloride Carbon Dioxide BUN Creatinine Glucose POC Glucose 110 H 209 H Lactic Acid Calcium Phosphorus Total Bilirubin AST ALT Total Creatine Kinase CK-MB (CK-2) Troponin T Total Protein Albumin HDL Cholesterol Salicylates Acetaminophen 10/16/18 10/16/18 10/16/18 10:51 12:51 15:01 WBC Hgb Hct MCV RDW Plt Count [place] % (Auto) [place] # Seg Neutrophils % Seg Neuts % (Manual) Lymphocytes % (Manual) Monocytes % (Manual) Seg Neutrophils # Seg Neutrophils # Man Lymphocytes # (Manual) Monocytes # (Manual) APTT POC ABG pH POC ABG pCO2 48.9 H POC ABG pO2 Sodium Potassium Chloride Carbon Dioxide BUN Creatinine Glucose POC Glucose 198 H 196 H Lactic Acid Calcium Phosphorus Total Bilirubin AST ALT Total Creatine Kinase CK-MB (CK-2) Troponin T Total Protein Albumin HDL Cholesterol Salicylates Acetaminophen 10/16/18 10/16/18 10/17/18 17:34 21:59 02:17 WBC Hgb Hct MCV RDW Plt Count [place] % (Auto) [place] # Seg Neutrophils % Seg Neuts % (Manual) Lymphocytes % (Manual) Monocytes % (Manual) Seg Neutrophils # Seg Neutrophils # Man Lymphocytes # (Manual) Monocytes # (Manual) APTT POC ABG pH POC ABG pCO2 POC ABG pO2 Sodium Potassium Chloride Carbon Dioxide BUN Creatinine Glucose POC Glucose 179 H 139 H 135 H Lactic Acid Calcium Phosphorus Total Bilirubin AST ALT Total Creatine Kinase CK-MB (CK-2) Troponin T Total Protein Albumin HDL Cholesterol Salicylates Acetaminophen 10/17/18 10/17/18 10/17/18 05:40 05:47 10:18 WBC Hgb 11.3 L Hct 33.2 L MCV RDW Plt Count [place] % (Auto) [place] # Seg Neutrophils % Seg Neuts % (Manual) Lymphocytes % (Manual) Monocytes % (Manual) Seg Neutrophils # Seg Neutrophils # Man Lymphocytes # (Manual) Monocytes # (Manual) APTT POC ABG pH POC ABG pCO2 POC ABG pO2 Sodium Potassium Chloride Carbon Dioxide BUN Creatinine Glucose POC Glucose 125 H 139 H Lactic Acid Calcium Phosphorus Total Bilirubin AST ALT Total Creatine Kinase CK-MB (CK-2) Troponin T Total Protein Albumin HDL Cholesterol Salicylates Acetaminophen 10/17/18 10/18/18 10/18/18 23:11 08:49 11:31 WBC Hgb Hct MCV RDW Plt Count [place] % (Auto) [place] # Seg Neutrophils % Seg Neuts % (Manual) Lymphocytes % (Manual) Monocytes % (Manual) Seg Neutrophils # Seg Neutrophils # Man Lymphocytes # (Manual) Monocytes # (Manual) APTT POC ABG pH POC ABG pCO2 POC ABG pO2 Sodium Potassium Chloride Carbon Dioxide BUN Creatinine Glucose POC Glucose 165 H 125 H 182 H Lactic Acid Calcium Phosphorus Total Bilirubin AST ALT Total Creatine Kinase CK-MB (CK-2) Troponin T Total Protein Albumin HDL Cholesterol Salicylates Acetaminophen 10/18/18 10/18/18 10/19/18 16:12 21:02 00:28 WBC Hgb 11.4 L Hct 33.6 L MCV RDW Plt Count [place] % (Auto) 14.0 H [place] # 1.2 H Seg Neutrophils % Seg Neuts % (Manual) Lymphocytes % (Manual) Monocytes % (Manual) Seg Neutrophils # Seg Neutrophils # Man Lymphocytes # (Manual) Monocytes # (Manual) APTT POC ABG pH POC ABG pCO2 POC ABG pO2 Sodium Potassium Chloride Carbon Dioxide BUN Creatinine Glucose POC Glucose 168 H 324 H Lactic Acid Calcium Phosphorus Total Bilirubin AST ALT Total Creatine Kinase CK-MB (CK-2) Troponin T Total Protein Albumin HDL Cholesterol Salicylates Acetaminophen 10/19/18 10/19/18 10/19/18 04:57 04:57 07:32 WBC Hgb 11.7 L Hct 34.0 L MCV RDW Plt Count [place] % (Auto) [place] # Seg Neutrophils % Seg Neuts % (Manual) Lymphocytes % (Manual) Monocytes % (Manual) Seg Neutrophils # Seg Neutrophils # Man Lymphocytes # (Manual) Monocytes # (Manual) APTT POC ABG pH POC ABG pCO2 POC ABG pO2 Sodium Potassium 3.5 L Chloride 108.6 H Carbon Dioxide BUN Creatinine 0.6 L Glucose POC Glucose 159 H Lactic Acid Calcium 7.9 L Phosphorus Total Bilirubin AST ALT Total Creatine Kinase CK-MB (CK-2) Troponin T Total Protein Albumin HDL Cholesterol Salicylates Acetaminophen 10/19/18 10/19/18 10/20/18 16:25 20:59 12:04 WBC Hgb Hct MCV RDW Plt Count [place] % (Auto) [place] # Seg Neutrophils % Seg Neuts % (Manual) Lymphocytes % (Manual) Monocytes % (Manual) Seg Neutrophils # Seg Neutrophils # Man Lymphocytes # (Manual) Monocytes # (Manual) APTT POC ABG pH POC ABG pCO2 POC ABG pO2 Sodium Potassium Chloride Carbon Dioxide BUN Creatinine Glucose POC Glucose 134 H 110 H 338 H Lactic Acid Calcium Phosphorus Total Bilirubin AST ALT Total Creatine Kinase CK-MB (CK-2) Troponin T Total Protein Albumin HDL Cholesterol Salicylates Acetaminophen 10/20/18 10/20/18 10/21/18 17:55 22:07 04:59 WBC Hgb 11.6 L Hct 33.9 L MCV RDW Plt Count [place] % (Auto) 9.7 H [place] # 0.9 H Seg Neutrophils % 70.7 H Seg Neuts % (Manual) Lymphocytes % (Manual) Monocytes % (Manual) Seg Neutrophils # Seg Neutrophils # Man Lymphocytes # (Manual) Monocytes # (Manual) APTT POC ABG pH POC ABG pCO2 POC ABG pO2 Sodium Potassium Chloride Carbon Dioxide BUN Creatinine Glucose POC Glucose 146 H 164 H Lactic Acid Calcium Phosphorus Total Bilirubin AST ALT Total Creatine Kinase CK-MB (CK-2) Troponin T Total Protein Albumin HDL Cholesterol Salicylates Acetaminophen 10/21/18 10/21/18 10/21/18 04:59 07:52 11:39 WBC Hgb Hct MCV RDW Plt Count [place] % (Auto) [place] # Seg Neutrophils % Seg Neuts % (Manual) Lymphocytes % (Manual) Monocytes % (Manual) Seg Neutrophils # Seg Neutrophils # Man Lymphocytes # (Manual) Monocytes # (Manual) APTT POC ABG pH POC ABG pCO2 POC ABG pO2 Sodium Potassium 3.5 L Chloride 107.1 H Carbon Dioxide BUN Creatinine 0.5 L Glucose 158 H POC Glucose 142 H 194 H Lactic Acid Calcium 7.5 L Phosphorus Total Bilirubin AST ALT Total Creatine Kinase CK-MB (CK-2) Troponin T Total Protein 5.6 L Albumin 2.0 L HDL Cholesterol Salicylates Acetaminophen Allied health notes reviewed: nursing
[2018-10-21] MEDS: LOVENOX SUB-Q SCH (22:20)
[2018-10-21] MEDS: TYLENOL PO PRN (22:21)
[2018-10-22 06:23] LABS: Basophils % (Auto) 0.6 % (0.0-1.8); Eosinophils # (Auto) 0.1 K/mm3 (0.0-0.4); Eosinophils % (Auto) 1.5 % (0.0-4.3); Hematocrit 31.7 % (35.5-45.6); Hemoglobin 10.8 gm/dl (11.8-15.2); Lymphocytes # (Auto) 1.7 K/mm3 (1.2-5.4); Lymphocytes % (Auto) 21.5 % (13.4-35.0); Mean Corpuscular HGB Conc 34 % (32-34); Mean Corpuscular Volume 91 fl (84-94); Monocytes # (Auto) 0.8 K/mm3 (0.0-0.8); Monocytes % (Auto) 10.5 % (0.0-7.3); Platelet Count 458 K/mm3 (140-440); Red Blood Count 3.48 M/mm3 (3.65-5.03); Red Cell Distribution Width 14.2 % (13.2-15.2)
[2018-10-22 06:47] LABS: Alanine Aminotransferase 35 units/L (7-56); Albumin 2.1 g/dL (3.9-5); BUN/Creatinine Ratio 20; Blood Urea Nitrogen 10 mg/dL (9-20); Calcium 7.8 mg/dL (8.4-10.2); Hemolysis Index 1
[2018-10-22] MEDS: HumuLIN R SUB-Q SCH ×4 (08:00→22:58)
--- NOTE | 2018-10-22 08:10 | Progress Note ---
Subjective Date of service: 10/22/18 Principal diagnosis: Ac hypercapnic hypoxemic Resp failure; Drug OD; AE-COPD; NINOSKA; Seizures Interval history: went over the CT results with Dr. Vazquez strokes are resolving based on fact likely from IV drug abuse consider placement in treatment facility Objective - Vital Sign Vital Signs - 12hr 10/21/18 10/21/18 10/21/18 20:14 22:00 22:52 Temperature 98.2 F Pulse Rate 94 H 90 Pulse Rate [ 88 Bilateral] Respiratory 20 Rate Respiratory 20 Rate [Bilateral ] Blood Pressure 121/70 O2 Sat by Pulse 87 100 Oximetry 10/22/18 10/22/18 10/22/18 04:25 04:26 04:37 Temperature 97.6 F 97.6 F 98.3 F Pulse Rate 79 76 Pulse Rate [ Bilateral] Respiratory 24 20 18 Rate Respiratory Rate [Bilateral ] Blood Pressure 83/49 113/65 O2 Sat by Pulse 96 98 Oximetry - Laboratory Findings CBC and BMP: 10/22/18 05:38 10/22/18 05:38 Abnormal Lab Findings: Abnormal Labs 10/11/18 10/11/18 10/11/18 00:16 00:16 00:16 WBC 20.1 H RBC Hgb Hct MCV 98 H RDW 15.4 H Plt Count [place] % (Auto) [place] # Seg Neutrophils % Seg Neuts % (Manual) Lymphocytes % (Manual) 5.0 L Monocytes % (Manual) 25.0 H Seg Neutrophils # Seg Neutrophils # Man 9.2 H Lymphocytes # (Manual) 1.0 L Monocytes # (Manual) 5.0 H APTT POC ABG pH POC ABG pCO2 POC ABG pO2 Sodium Potassium 5.8 H Chloride Carbon Dioxide 17 L BUN Creatinine 2.2 H Glucose 348 H POC Glucose Lactic Acid 13.70 H* Calcium 7.7 L Phosphorus Total Bilirubin 1.50 H AST 179 H ALT 110 H Total Creatine Kinase 324 H CK-MB (CK-2) Troponin T 0.257 H* Total Protein 5.9 L Albumin 2.9 L HDL Cholesterol 19 L Salicylates Acetaminophen 10/11/18 10/11/18 10/11/18 00:16 00:16 01:21 WBC RBC Hgb Hct MCV RDW Plt Count [place] % (Auto) [place] # Seg Neutrophils % Seg Neuts % (Manual) Lymphocytes % (Manual) Monocytes % (Manual) Seg Neutrophils # Seg Neutrophils # Man Lymphocytes # (Manual) Monocytes # (Manual) APTT POC ABG pH 7.110 L POC ABG pCO2 50.3 H POC ABG pO2 65 L Sodium Potassium Chloride Carbon Dioxide BUN Creatinine Glucose POC Glucose Lactic Acid Calcium Phosphorus Total Bilirubin AST ALT Total Creatine Kinase CK-MB (CK-2) Troponin T Total Protein Albumin HDL Cholesterol Salicylates < 0.3 L Acetaminophen < 5.0 L 10/11/18 10/11/18 10/11/18 01:22 03:27 04:14 WBC RBC Hgb Hct MCV RDW Plt Count [place] % (Auto) [place] # Seg Neutrophils % Seg Neuts % (Manual) Lymphocytes % (Manual) Monocytes % (Manual) Seg Neutrophils # Seg Neutrophils # Man Lymphocytes # (Manual) Monocytes # (Manual) APTT POC ABG pH POC ABG pCO2 POC ABG pO2 Sodium Potassium Chloride Carbon Dioxide BUN Creatinine Glucose POC Glucose Lactic Acid 8.50 H* 4.10 H* Calcium Phosphorus 4.90 H Total Bilirubin AST ALT Total Creatine Kinase CK-MB (CK-2) Troponin T Total Protein Albumin HDL Cholesterol Salicylates Acetaminophen 10/11/18 10/11/18 10/11/18 04:14 04:14 04:14 WBC RBC Hgb Hct MCV RDW Plt Count [place] % (Auto) [place] # Seg Neutrophils % Seg Neuts % (Manual) Lymphocytes % (Manual) Monocytes % (Manual) Seg Neutrophils # Seg Neutrophils # Man Lymphocytes # (Manual) Monocytes # (Manual) APTT POC ABG pH POC ABG pCO2 POC ABG pO2 Sodium Potassium 5.6 H Chloride Carbon Dioxide 19 L BUN Creatinine 1.6 H Glucose 329 H POC Glucose 328 H Lactic Acid Calcium 7.3 L Phosphorus Total Bilirubin AST ALT Total Creatine Kinase CK-MB (CK-2) Troponin T 1.130 H* D Total Protein Albumin HDL Cholesterol Salicylates Acetaminophen 10/11/18 10/11/18 10/11/18 05:10 05:32 05:58 WBC RBC Hgb Hct MCV RDW Plt Count [place] % (Auto) [place] # Seg Neutrophils % Seg Neuts % (Manual) Lymphocytes % (Manual) Monocytes % (Manual) Seg Neutrophils # Seg Neutrophils # Man Lymphocytes # (Manual) Monocytes # (Manual) APTT POC ABG pH 7.259 L POC ABG pCO2 45.6 H POC ABG pO2 Sodium Potassium Chloride 108.6 H Carbon Dioxide 20 L BUN Creatinine 1.8 H Glucose 269 H POC Glucose 273 H Lactic Acid Calcium 7.0 L Phosphorus Total Bilirubin AST ALT Total Creatine Kinase CK-MB (CK-2) Troponin T Total Protein Albumin HDL Cholesterol Salicylates Acetaminophen 10/11/18 10/11/18 10/11/18 05:58 06:39 07:00 WBC RBC Hgb Hct MCV RDW Plt Count [place] % (Auto) [place] # Seg Neutrophils % Seg Neuts % (Manual) Lymphocytes % (Manual) Monocytes % (Manual) Seg Neutrophils # Seg Neutrophils # Man Lymphocytes # (Manual) Monocytes # (Manual) APTT POC ABG pH POC ABG pCO2 POC ABG pO2 Sodium Potassium Chloride Carbon Dioxide BUN Creatinine Glucose POC Glucose 247 H Lactic Acid 3.20 H* 3.30 H* Calcium Phosphorus Total Bilirubin AST ALT Total Creatine Kinase CK-MB (CK-2) Troponin T Total Protein Albumin HDL Cholesterol Salicylates Acetaminophen 10/11/18 10/11/18 10/11/18 07:00 07:30 07:36 WBC RBC Hgb Hct MCV RDW Plt Count [place] % (Auto) [place] # Seg Neutrophils % Seg Neuts % (Manual) Lymphocytes % (Manual) Monocytes % (Manual) Seg Neutrophils # Seg Neutrophils # Man Lymphocytes # (Manual) Monocytes # (Manual) APTT POC ABG pH POC ABG pCO2 POC ABG pO2 Sodium 146 H Potassium Chloride 112.1 H Carbon Dioxide 21 L BUN Creatinine 1.6 H Glucose 218 H POC Glucose Lactic Acid 3.20 H* Calcium 7.0 L Phosphorus Total Bilirubin AST ALT Total Creatine Kinase CK-MB (CK-2) Troponin T 1.020 H* Total Protein Albumin HDL Cholesterol Salicylates Acetaminophen 10/11/18 10/11/18 10/11/18 07:43 08:29 08:29 WBC RBC Hgb 16.2 H Hct 49.9 H D MCV RDW Plt Count [place] % (Auto) [place] # Seg Neutrophils % Seg Neuts % (Manual) Lymphocytes % (Manual) Monocytes % (Manual) Seg Neutrophils # Seg Neutrophils # Man Lymphocytes # (Manual) Monocytes # (Manual) APTT POC ABG pH POC ABG pCO2 POC ABG pO2 Sodium Potassium Chloride Carbon Dioxide BUN Creatinine Glucose POC Glucose 174 H Lactic Acid 3.90 H* Calcium Phosphorus Total Bilirubin AST ALT Total Creatine Kinase CK-MB (CK-2) Troponin T Total Protein Albumin HDL Cholesterol Salicylates Acetaminophen 10/11/18 10/11/18 10/11/18 08:29 08:42 11:05 WBC RBC Hgb Hct MCV RDW Plt Count [place] % (Auto) [place] # Seg Neutrophils % Seg Neuts % (Manual) Lymphocytes % (Manual) Monocytes % (Manual) Seg Neutrophils # Seg Neutrophils # Man Lymphocytes # (Manual) Monocytes # (Manual) APTT 24.1 L POC ABG pH POC ABG pCO2 POC ABG pO2 Sodium 147 H Potassium Chloride 113.3 H Carbon Dioxide 21 L BUN Creatinine 1.7 H Glucose 119 H POC Glucose 164 H Lactic Acid Calcium 7.7 L Phosphorus Total Bilirubin AST ALT Total Creatine Kinase CK-MB (CK-2) Troponin T Total Protein Albumin HDL Cholesterol Salicylates Acetaminophen 10/11/18 10/11/18 10/11/18 11:05 11:06 12:30 WBC RBC Hgb Hct MCV RDW Plt Count [place] % (Auto) [place] # Seg Neutrophils % Seg Neuts % (Manual) Lymphocytes % (Manual) Monocytes % (Manual) Seg Neutrophils # Seg Neutrophils # Man Lymphocytes # (Manual) Monocytes # (Manual) APTT POC ABG pH POC ABG pCO2 POC ABG pO2 Sodium 148 H Potassium Chloride 113.4 H Carbon Dioxide 21 L BUN Creatinine 1.6 H Glucose 119 H POC Glucose 116 H Lactic Acid 3.20 H* Calcium 7.5 L Phosphorus Total Bilirubin AST ALT Total Creatine Kinase CK-MB (CK-2) Troponin T Total Protein Albumin HDL Cholesterol Salicylates Acetaminophen 10/11/18 10/11/18 10/11/18 12:30 13:16 13:25 WBC RBC Hgb Hct MCV RDW Plt Count [place] % (Auto) [place] # Seg Neutrophils % Seg Neuts % (Manual) Lymphocytes % (Manual) Monocytes % (Manual) Seg Neutrophils # Seg Neutrophils # Man Lymphocytes # (Manual) Monocytes # (Manual) APTT POC ABG pH 7.247 L POC ABG pCO2 48.4 H POC ABG pO2 Sodium Potassium Chloride Carbon Dioxide BUN Creatinine Glucose POC Glucose 112 H Lactic Acid 2.70 H* Calcium Phosphorus Total Bilirubin AST ALT Total Creatine Kinase CK-MB (CK-2) Troponin T Total Protein Albumin HDL Cholesterol Salicylates Acetaminophen 10/11/18 10/11/18 10/11/18 14:41 15:27 16:13 WBC RBC Hgb Hct MCV RDW Plt Count [place] % (Auto) [place] # Seg Neutrophils % Seg Neuts % (Manual) Lymphocytes % (Manual) Monocytes % (Manual) Seg Neutrophils # Seg Neutrophils # Man Lymphocytes # (Manual) Monocytes # (Manual) APTT POC ABG pH POC ABG pCO2 POC ABG pO2 Sodium Potassium Chloride Carbon Dioxide BUN Creatinine Glucose POC Glucose 127 H 141 H 134 H Lactic Acid Calcium Phosphorus Total Bilirubin AST ALT Total Creatine Kinase CK-MB (CK-2) Troponin T Total Protein Albumin HDL Cholesterol Salicylates Acetaminophen 10/11/18 10/11/18 10/11/18 17:18 18:23 19:38 WBC RBC Hgb Hct MCV RDW Plt Count [place] % (Auto) [place] # Seg Neutrophils % Seg Neuts % (Manual) Lymphocytes % (Manual) Monocytes % (Manual) Seg Neutrophils # Seg Neutrophils # Man Lymphocytes # (Manual) Monocytes # (Manual) APTT POC ABG pH POC ABG pCO2 POC ABG pO2 Sodium 148 H Potassium Chloride 112.7 H Carbon Dioxide BUN 23 H Creatinine Glucose 143 H POC Glucose 132 H 129 H Lactic Acid Calcium 7.9 L Phosphorus Total Bilirubin AST ALT Total Creatine Kinase CK-MB (CK-2) Troponin T Total Protein Albumin HDL Cholesterol Salicylates Acetaminophen 10/11/18 10/11/18 10/11/18 20:19 20:36 21:01 WBC RBC Hgb Hct MCV RDW Plt Count [place] % (Auto) [place] # Seg Neutrophils % Seg Neuts % (Manual) Lymphocytes % (Manual) Monocytes % (Manual) Seg Neutrophils # Seg Neutrophils # Man Lymphocytes # (Manual) Monocytes # (Manual) APTT POC ABG pH 7.281 L POC ABG pCO2 POC ABG pO2 Sodium Potassium Chloride Carbon Dioxide BUN Creatinine Glucose POC Glucose 129 H 151 H Lactic Acid Calcium Phosphorus Total Bilirubin AST ALT Total Creatine Kinase CK-MB (CK-2) Troponin T Total Protein Albumin HDL Cholesterol Salicylates Acetaminophen 10/11/18 10/11/18 10/12/18 22:04 23:15 01:18 WBC RBC Hgb Hct MCV RDW Plt Count [place] % (Auto) [place] # Seg Neutrophils % Seg Neuts % (Manual) Lymphocytes % (Manual) Monocytes % (Manual) Seg Neutrophils # Seg Neutrophils # Man Lymphocytes # (Manual) Monocytes # (Manual) APTT POC ABG pH POC ABG pCO2 POC ABG pO2 Sodium Potassium Chloride Carbon Dioxide BUN Creatinine Glucose POC Glucose 147 H 143 H 158 H Lactic Acid Calcium Phosphorus Total Bilirubin AST ALT Total Creatine Kinase CK-MB (CK-2) Troponin T Total Protein Albumin HDL Cholesterol Salicylates Acetaminophen 10/12/18 10/12/18 10/12/18 02:13 03:18 04:04 WBC RBC Hgb Hct MCV RDW Plt Count [place] % (Auto) [place] # Seg Neutrophils % Seg Neuts % (Manual) Lymphocytes % (Manual) Monocytes % (Manual) Seg Neutrophils # Seg Neutrophils # Man Lymphocytes # (Manual) Monocytes # (Manual) APTT POC ABG pH POC ABG pCO2 POC ABG pO2 Sodium 147 H Potassium Chloride 111.1 H Carbon Dioxide BUN 30 H Creatinine 2.0 H Glucose 154 H POC Glucose 148 H 142 H Lactic Acid Calcium 8.1 L Phosphorus Total Bilirubin AST 269 H ALT 204 H Total Creatine Kinase 3647 H CK-MB (CK-2) 48.3 H Troponin T 2.230 H* D Total Protein 5.8 L Albumin 2.6 L HDL Cholesterol Salicylates Acetaminophen 10/12/18 10/12/18 10/12/18 04:04 04:08 04:19 WBC 24.4 H RBC Hgb Hct MCV RDW Plt Count [place] % (Auto) [place] # Seg Neutrophils % Seg Neuts % (Manual) 32.0 L Lymphocytes % (Manual) Monocytes % (Manual) 8.0 H Seg Neutrophils # Seg Neutrophils # Man 7.8 H Lymphocytes # (Manual) Monocytes # (Manual) 2.0 H APTT POC ABG pH 7.317 L POC ABG pCO2 49.3 H POC ABG pO2 Sodium Potassium Chloride Carbon Dioxide BUN Creatinine Glucose POC Glucose 143 H Lactic Acid Calcium Phosphorus Total Bilirubin AST ALT Total Creatine Kinase CK-MB (CK-2) Troponin T Total Protein Albumin HDL Cholesterol Salicylates Acetaminophen 10/12/18 10/12/18 10/12/18 05:29 06:52 08:09 WBC RBC Hgb Hct MCV RDW Plt Count [place] % (Auto) [place] # Seg Neutrophils % Seg Neuts % (Manual) Lymphocytes % (Manual) Monocytes % (Manual) Seg Neutrophils # Seg Neutrophils # Man Lymphocytes # (Manual) Monocytes # (Manual) APTT POC ABG pH 7.322 L POC ABG pCO2 46.5 H POC ABG pO2 Sodium Potassium Chloride Carbon Dioxide BUN Creatinine Glucose POC Glucose 196 H 226 H Lactic Acid Calcium Phosphorus Total Bilirubin AST ALT Total Creatine Kinase CK-MB (CK-2) Troponin T Total Protein Albumin HDL Cholesterol Salicylates Acetaminophen 10/12/18 10/12/18 10/12/18 08:38 10:03 15:50 WBC RBC Hgb Hct MCV RDW Plt Count [place] % (Auto) [place] # Seg Neutrophils % Seg Neuts % (Manual) Lymphocytes % (Manual) Monocytes % (Manual) Seg Neutrophils # Seg Neutrophils # Man Lymphocytes # (Manual) Monocytes # (Manual) APTT POC ABG pH POC ABG pCO2 POC ABG pO2 Sodium Potassium Chloride Carbon Dioxide BUN Creatinine Glucose POC Glucose 138 H 148 H 221 H Lactic Acid Calcium Phosphorus Total Bilirubin AST ALT Total Creatine Kinase CK-MB (CK-2) Troponin T Total Protein Albumin HDL Cholesterol Salicylates Acetaminophen 10/12/18 10/12/18 10/12/18 18:39 20:56 21:34 WBC RBC Hgb Hct MCV RDW Plt Count [place] % (Auto) [place] # Seg Neutrophils % Seg Neuts % (Manual) Lymphocytes % (Manual) Monocytes % (Manual) Seg Neutrophils # Seg Neutrophils # Man Lymphocytes # (Manual) Monocytes # (Manual) APTT POC ABG pH 7.336 L POC ABG pCO2 46.0 H POC ABG pO2 Sodium Potassium Chloride Carbon Dioxide BUN Creatinine Glucose POC Glucose 255 H 260 H Lactic Acid Calcium Phosphorus Total Bilirubin AST ALT Total Creatine Kinase CK-MB (CK-2) Troponin T Total Protein Albumin HDL Cholesterol Salicylates Acetaminophen 10/13/18 10/13/18 10/13/18 02:29 05:09 05:40 WBC 17.0 H RBC Hgb Hct MCV RDW Plt Count [place] % (Auto) 9.2 H [place] # 1.6 H Seg Neutrophils % 76.2 H Seg Neuts % (Manual) Lymphocytes % (Manual) Monocytes % (Manual) Seg Neutrophils # 12.9 H Seg Neutrophils # Man Lymphocytes # (Manual) Monocytes # (Manual) APTT POC ABG pH POC ABG pCO2 POC ABG pO2 Sodium Potassium Chloride Carbon Dioxide BUN Creatinine Glucose POC Glucose 216 H 249 H Lactic Acid Calcium Phosphorus Total Bilirubin AST ALT Total Creatine Kinase CK-MB (CK-2) Troponin T Total Protein Albumin HDL Cholesterol Salicylates Acetaminophen 10/13/18 10/13/18 10/13/18 05:40 05:40 09:46 WBC RBC Hgb Hct MCV RDW Plt Count [place] % (Auto) [place] # Seg Neutrophils % Seg Neuts % (Manual) Lymphocytes % (Manual) Monocytes % (Manual) Seg Neutrophils # Seg Neutrophils # Man Lymphocytes # (Manual) Monocytes # (Manual) APTT POC ABG pH POC ABG pCO2 POC ABG pO2 Sodium 146 H Potassium Chloride 109.8 H Carbon Dioxide BUN 35 H Creatinine Glucose 245 H POC Glucose 235 H Lactic Acid Calcium 7.9 L Phosphorus Total Bilirubin AST ALT Total Creatine Kinase CK-MB (CK-2) Troponin T 0.952 H* D Total Protein Albumin HDL Cholesterol Salicylates Acetaminophen 10/13/18 10/13/18 10/13/18 13:58 16:15 17:30 WBC RBC Hgb Hct MCV RDW Plt Count [place] % (Auto) [place] # Seg Neutrophils % Seg Neuts % (Manual) Lymphocytes % (Manual) Monocytes % (Manual) Seg Neutrophils # Seg Neutrophils # Man Lymphocytes # (Manual) Monocytes # (Manual) APTT POC ABG pH POC ABG pCO2 51.2 H POC ABG pO2 Sodium Potassium Chloride Carbon Dioxide BUN Creatinine Glucose POC Glucose 139 H Lactic Acid Calcium Phosphorus Total Bilirubin AST ALT Total Creatine Kinase CK-MB (CK-2) Troponin T 0.816 H* Total Protein Albumin HDL Cholesterol Salicylates Acetaminophen 10/13/18 10/14/18 10/14/18 21:25 01:49 04:52 WBC RBC Hgb Hct MCV RDW Plt Count [place] % (Auto) [place] # Seg Neutrophils % Seg Neuts % (Manual) Lymphocytes % (Manual) Monocytes % (Manual) Seg Neutrophils # Seg Neutrophils # Man Lymphocytes # (Manual) Monocytes # (Manual) APTT POC ABG pH POC ABG pCO2 56.0 H POC ABG pO2 Sodium Potassium Chloride Carbon Dioxide BUN Creatinine Glucose POC Glucose 205 H 166 H Lactic Acid Calcium Phosphorus Total Bilirubin AST ALT Total Creatine Kinase CK-MB (CK-2) Troponin T Total Protein Albumin HDL Cholesterol Salicylates Acetaminophen 10/14/18 10/14/18 10/14/18 05:32 09:45 09:45 WBC RBC Hgb 11.4 L Hct 34.5 L MCV RDW Plt Count 139 L [place] % (Auto) [place] # Seg Neutrophils % Seg Neuts % (Manual) Lymphocytes % (Manual) Monocytes % (Manual) Seg Neutrophils # Seg Neutrophils # Man Lymphocytes # (Manual) Monocytes # (Manual) APTT POC ABG pH POC ABG pCO2 POC ABG pO2 Sodium 148 H Potassium Chloride 107.3 H Carbon Dioxide 34 H D BUN Creatinine 0.7 L D Glucose 191 H POC Glucose 164 H Lactic Acid Calcium 7.3 L Phosphorus Total Bilirubin AST 110 H ALT 91 H Total Creatine Kinase CK-MB (CK-2) Troponin T Total Protein 4.9 L Albumin 2.0 L HDL Cholesterol Salicylates Acetaminophen 10/14/18 10/14/18 10/14/18 10:54 12:20 18:30 WBC RBC Hgb Hct MCV RDW Plt Count [place] % (Auto) [place] # Seg Neutrophils % Seg Neuts % (Manual) Lymphocytes % (Manual) Monocytes % (Manual) Seg Neutrophils # Seg Neutrophils # Man Lymphocytes # (Manual) Monocytes # (Manual) APTT POC ABG pH POC ABG pCO2 POC ABG pO2 Sodium Potassium Chloride Carbon Dioxide BUN Creatinine Glucose POC Glucose 173 H 158 H 108 H Lactic Acid Calcium Phosphorus Total Bilirubin AST ALT Total Creatine Kinase CK-MB (CK-2) Troponin T Total Protein Albumin HDL Cholesterol Salicylates Acetaminophen 10/14/18 10/15/18 10/15/18 21:54 02:12 04:19 WBC RBC Hgb Hct MCV RDW Plt Count [place] % (Auto) [place] # Seg Neutrophils % Seg Neuts % (Manual) Lymphocytes % (Manual) Monocytes % (Manual) Seg Neutrophils # Seg Neutrophils # Man Lymphocytes # (Manual) Monocytes # (Manual) APTT POC ABG pH 7.491 H POC ABG pCO2 45.1 H POC ABG pO2 Sodium Potassium Chloride Carbon Dioxide BUN Creatinine Glucose POC Glucose 110 H 164 H Lactic Acid Calcium Phosphorus Total Bilirubin AST ALT Total Creatine Kinase CK-MB (CK-2) Troponin T Total Protein Albumin HDL Cholesterol Salicylates Acetaminophen 10/15/18 10/15/18 10/15/18 04:55 05:43 06:20 WBC RBC Hgb 11.7 L Hct 34.7 L MCV RDW Plt Count [place] % (Auto) [place] # Seg Neutrophils % Seg Neuts % (Manual) Lymphocytes % (Manual) Monocytes % (Manual) Seg Neutrophils # Seg Neutrophils # Man Lymphocytes # (Manual) Monocytes # (Manual) APTT POC ABG pH POC ABG pCO2 47.3 H POC ABG pO2 78 L Sodium Potassium Chloride Carbon Dioxide BUN Creatinine Glucose POC Glucose 250 H Lactic Acid Calcium Phosphorus Total Bilirubin AST ALT Total Creatine Kinase CK-MB (CK-2) Troponin T Total Protein Albumin HDL Cholesterol Salicylates Acetaminophen 05/11/2810/15/18 10/15/18 12:00 12:00 12:11 WBC RBC Hgb 11.5 L Hct 34.0 L MCV RDW Plt Count [place] % (Auto) [place] # Seg Neutrophils % Seg Neuts % (Manual) Lymphocytes % (Manual) Monocytes % (Manual) Seg Neutrophils # Seg Neutrophils # Man Lymphocytes # (Manual) Monocytes # (Manual) APTT POC ABG pH POC ABG pCO2 POC ABG pO2 Sodium 147 H Potassium Chloride 108.5 H Carbon Dioxide BUN Creatinine 0.7 L Glucose 209 H POC Glucose 197 H Lactic Acid Calcium 7.3 L Phosphorus Total Bilirubin AST ALT Total Creatine Kinase CK-MB (CK-2) Troponin T Total Protein Albumin HDL Cholesterol Salicylates Acetaminophen 10/15/18 10/15/18 10/15/18 15:48 18:34 21:29 WBC RBC Hgb Hct MCV RDW Plt Count [place] % (Auto) [place] # Seg Neutrophils % Seg Neuts % (Manual) Lymphocytes % (Manual) Monocytes % (Manual) Seg Neutrophils # Seg Neutrophils # Man Lymphocytes # (Manual) Monocytes # (Manual) APTT POC ABG pH POC ABG pCO2 POC ABG pO2 Sodium Potassium Chloride Carbon Dioxide BUN Creatinine Glucose POC Glucose 220 H 249 H 209 H Lactic Acid Calcium Phosphorus Total Bilirubin AST ALT Total Creatine Kinase CK-MB (CK-2) Troponin T Total Protein Albumin HDL Cholesterol Salicylates Acetaminophen 10/16/18 10/16/18 10/16/18 02:16 03:50 05:57 WBC RBC Hgb Hct MCV RDW Plt Count [place] % (Auto) [place] # Seg Neutrophils % Seg Neuts % (Manual) Lymphocytes % (Manual) Monocytes % (Manual) Seg Neutrophils # Seg Neutrophils # Man Lymphocytes # (Manual) Monocytes # (Manual) APTT POC ABG pH POC ABG pCO2 55.8 H POC ABG pO2 Sodium Potassium Chloride Carbon Dioxide BUN Creatinine Glucose POC Glucose 110 H 209 H Lactic Acid Calcium Phosphorus Total Bilirubin AST ALT Total Creatine Kinase CK-MB (CK-2) Troponin T Total Protein Albumin HDL Cholesterol Salicylates Acetaminophen 10/16/18 10/16/18 10/16/18 10:51 12:51 15:01 WBC RBC Hgb Hct MCV RDW Plt Count [place] % (Auto) [place] # Seg Neutrophils % Seg Neuts % (Manual) Lymphocytes % (Manual) Monocytes % (Manual) Seg Neutrophils # Seg Neutrophils # Man Lymphocytes # (Manual) Monocytes # (Manual) APTT POC ABG pH POC ABG pCO2 48.9 H POC ABG pO2 Sodium Potassium Chloride Carbon Dioxide BUN Creatinine Glucose POC Glucose 198 H 196 H Lactic Acid Calcium Phosphorus Total Bilirubin AST ALT Total Creatine Kinase CK-MB (CK-2) Troponin T Total Protein Albumin HDL Cholesterol Salicylates Acetaminophen 10/16/18 10/16/18 10/17/18 17:34 21:59 02:17 WBC RBC Hgb Hct MCV RDW Plt Count [place] % (Auto) [place] # Seg Neutrophils % Seg Neuts % (Manual) Lymphocytes % (Manual) Monocytes % (Manual) Seg Neutrophils # Seg Neutrophils # Man Lymphocytes # (Manual) Monocytes # (Manual) APTT POC ABG pH POC ABG pCO2 POC ABG pO2 Sodium Potassium Chloride Carbon Dioxide BUN Creatinine Glucose POC Glucose 179 H 139 H 135 H Lactic Acid Calcium Phosphorus Total Bilirubin AST ALT Total Creatine Kinase CK-MB (CK-2) Troponin T Total Protein Albumin HDL Cholesterol Salicylates Acetaminophen 10/17/18 10/17/18 10/17/18 05:40 05:47 10:18 WBC RBC Hgb 11.3 L Hct 33.2 L MCV RDW Plt Count [place] % (Auto) [place] # Seg Neutrophils % Seg Neuts % (Manual) Lymphocytes % (Manual) Monocytes % (Manual) Seg Neutrophils # Seg Neutrophils # Man Lymphocytes # (Manual) Monocytes # (Manual) APTT POC ABG pH POC ABG pCO2 POC ABG pO2 Sodium Potassium Chloride Carbon Dioxide BUN Creatinine Glucose POC Glucose 125 H 139 H Lactic Acid Calcium Phosphorus Total Bilirubin AST ALT Total Creatine Kinase CK-MB (CK-2) Troponin T Total Protein Albumin HDL Cholesterol Salicylates Acetaminophen 10/17/18 10/18/18 10/18/18 23:11 08:49 11:31 WBC RBC Hgb Hct MCV RDW Plt Count [place] % (Auto) [place] # Seg Neutrophils % Seg Neuts % (Manual) Lymphocytes % (Manual) Monocytes % (Manual) Seg Neutrophils # Seg Neutrophils # Man Lymphocytes # (Manual) Monocytes # (Manual) APTT POC ABG pH POC ABG pCO2 POC ABG pO2 Sodium Potassium Chloride Carbon Dioxide BUN Creatinine Glucose POC Glucose 165 H 125 H 182 H Lactic Acid Calcium Phosphorus Total Bilirubin AST ALT Total Creatine Kinase CK-MB (CK-2) Troponin T Total Protein Albumin HDL Cholesterol Salicylates Acetaminophen 10/18/18 10/18/18 10/19/18 16:12 21:02 00:28 WBC RBC Hgb 11.4 L Hct 33.6 L MCV RDW Plt Count [place] % (Auto) 14.0 H [place] # 1.2 H Seg Neutrophils % Seg Neuts % (Manual) Lymphocytes % (Manual) Monocytes % (Manual) Seg Neutrophils # Seg Neutrophils # Man Lymphocytes # (Manual) Monocytes # (Manual) APTT POC ABG pH POC ABG pCO2 POC ABG pO2 Sodium Potassium Chloride Carbon Dioxide BUN Creatinine Glucose POC Glucose 168 H 324 H Lactic Acid Calcium Phosphorus Total Bilirubin AST ALT Total Creatine Kinase CK-MB (CK-2) Troponin T Total Protein Albumin HDL Cholesterol Salicylates Acetaminophen 10/19/18 10/19/18 10/19/18 04:57 04:57 07:32 WBC RBC Hgb 11.7 L Hct 34.0 L MCV RDW Plt Count [place] % (Auto) [place] # Seg Neutrophils % Seg Neuts % (Manual) Lymphocytes % (Manual) Monocytes % (Manual) Seg Neutrophils # Seg Neutrophils # Man Lymphocytes # (Manual) Monocytes # (Manual) APTT POC ABG pH POC ABG pCO2 POC ABG pO2 Sodium Potassium 3.5 L Chloride 108.6 H Carbon Dioxide BUN Creatinine 0.6 L Glucose POC Glucose 159 H Lactic Acid Calcium 7.9 L Phosphorus Total Bilirubin AST ALT Total Creatine Kinase CK-MB (CK-2) Troponin T Total Protein Albumin HDL Cholesterol Salicylates Acetaminophen 10/19/18 10/19/18 10/20/18 16:25 20:59 12:04 WBC RBC Hgb Hct MCV RDW Plt Count [place] % (Auto) [place] # Seg Neutrophils % Seg Neuts % (Manual) Lymphocytes % (Manual) Monocytes % (Manual) Seg Neutrophils # Seg Neutrophils # Man Lymphocytes # (Manual) Monocytes # (Manual) APTT POC ABG pH POC ABG pCO2 POC ABG pO2 Sodium Potassium Chloride Carbon Dioxide BUN Creatinine Glucose POC Glucose 134 H 110 H 338 H Lactic Acid Calcium Phosphorus Total Bilirubin AST ALT Total Creatine Kinase CK-MB (CK-2) Troponin T Total Protein Albumin HDL Cholesterol Salicylates Acetaminophen 10/20/18 10/20/18 10/21/18 17:55 22:07 04:59 WBC RBC Hgb 11.6 L Hct 33.9 L MCV RDW Plt Count [place] % (Auto) 9.7 H [place] # 0.9 H Seg Neutrophils % 70.7 H Seg Neuts % (Manual) Lymphocytes % (Manual) Monocytes % (Manual) Seg Neutrophils # Seg Neutrophils # Man Lymphocytes # (Manual) Monocytes # (Manual) APTT POC ABG pH POC ABG pCO2 POC ABG pO2 Sodium Potassium Chloride Carbon Dioxide BUN Creatinine Glucose POC Glucose 146 H 164 H Lactic Acid Calcium Phosphorus Total Bilirubin AST ALT Total Creatine Kinase CK-MB (CK-2) Troponin T Total Protein Albumin HDL Cholesterol Salicylates Acetaminophen 10/21/18 10/21/18 10/21/18 04:59 07:52 11:39 WBC RBC Hgb Hct MCV RDW Plt Count [place] % (Auto) [place] # Seg Neutrophils % Seg Neuts % (Manual) Lymphocytes % (Manual) Monocytes % (Manual) Seg Neutrophils # Seg Neutrophils # Man Lymphocytes # (Manual) Monocytes # (Manual) APTT POC ABG pH POC ABG pCO2 POC ABG pO2 Sodium Potassium 3.5 L Chloride 107.1 H Carbon Dioxide BUN Creatinine 0.5 L Glucose 158 H POC Glucose 142 H 194 H Lactic Acid Calcium 7.5 L Phosphorus Total Bilirubin AST ALT Total Creatine Kinase CK-MB (CK-2) Troponin T Total Protein 5.6 L Albumin 2.0 L HDL Cholesterol Salicylates Acetaminophen 10/21/18 10/21/18 10/22/18 17:05 20:37 05:38 WBC RBC 3.48 L Hgb 10.8 L Hct 31.7 L MCV RDW Plt Count 458 H [place] % (Auto) 10.5 H [place] # Seg Neutrophils % Seg Neuts % (Manual) Lymphocytes % (Manual) Monocytes % (Manual) Seg Neutrophils # Seg Neutrophils # Man Lymphocytes # (Manual) Monocytes # (Manual) APTT POC ABG pH POC ABG pCO2 POC ABG pO2 Sodium Potassium Chloride Carbon Dioxide BUN Creatinine Glucose POC Glucose 167 H 182 H Lactic Acid Calcium Phosphorus Total Bilirubin AST ALT Total Creatine Kinase CK-MB (CK-2) Troponin T Total Protein Albumin HDL Cholesterol Salicylates Acetaminophen 10/22/18 05:38 WBC RBC Hgb Hct MCV RDW Plt Count [place] % (Auto) [place] # Seg Neutrophils % Seg Neuts % (Manual) Lymphocytes % (Manual) Monocytes % (Manual) Seg Neutrophils # Seg Neutrophils # Man Lymphocytes # (Manual) Monocytes # (Manual) APTT POC ABG pH POC ABG pCO2 POC ABG pO2 Sodium Potassium Chloride Carbon Dioxide BUN Creatinine 0.5 L Glucose 146 H POC Glucose Lactic Acid Calcium 7.8 L Phosphorus Total Bilirubin AST 41 H ALT Total Creatine Kinase CK-MB (CK-2) Troponin T Total Protein 5.5 L Albumin 2.1 L HDL Cholesterol Salicylates Acetaminophen
[2018-10-22] MEDS: DUONEB *Not for PRN Use IH SCH ×3 (08:35→19:12)
--- NOTE | 2018-10-22 09:41 | Progress Note ---
Assessment and Plan Assessment and plan: --Acute thrombus in bilateral lower extremities, 10/13/18 LE arterial doppler Not a candidate for anticoagulation due to recent CVA vascular planning revascularization /surgical intervention on Monday/Monday --Possible acute/subacute right FT CVA Initial CT head, no acute finding, 10/13/18 found to have left-sided weakness MRI brain showed numerous acute/subacute multilobar infarcts involving the cerebrum and cerebellum including Hemorrhagic transformation of the right frontal and biparietal lobes was Not a candidate for tPA, monitor off aspirin per teleneurology QUIQUE ; no thrombus or shunt, Speech recommended pureed diet --Severe sepsis with shock; present on admission Probably due to aspiration pneumonia, completed total 7 days of antibiotics off pressors --LLL pneumonia : completed treatment --Acute respiratory failure with hypoxia and hypercapnia: Requiring intubation, extubated, nebs , supplemental O2 as needed --Hyperglycemia:cont SSI for now, diabetic diet --Acute toxic/metabolic encephalopathy, improved --Seizure; seizure precautions, no new episodes of seizure Ativan when necessary, neurology did not recommend antiepileptic medications --Elevated troponin/NSTEMI type 2 Echocardiogram for further evaluation - Ef 25-30% Cardiology consulted, medical Mx for now, --Acute systolic CHF, Ef 25-30%, anti-failure medications --ARF, due to vasomotor nephropathy, resolved --Hyperkalemia, resolved --Abnormal LFT Probably due to sepsis and chronic hepatitis C virus infection Abdominal US showed no sign of cirrhosis --Severe protein calorie malnutrition; nutrition supplements Dietitian consulted --DVT prophylaxis with heparin and GI prophylaxis with famotidine Disposition: Possible revascularization/surgical intervention on Monday and Monday Plan of care is reviewed with the patient and his nurse Brief History: Patient is a 58-year-old male who was brought to the ED by EMS on account of altered mental status. It was reported that patient was found unresponsive by friends and family. Patient's last known well time was 10:30 PM on 10/10/18. He was given Narcan by EMS en route to the hospital with minimal response. Patient began to seize as EMS pulled into the hospital. Per report, family told EMS that the patient overdosed and has been using Dilaudid. He was intubated in the ER to protect airway, admitted to ICU for further evaluation. On 10/13/18 he noted unable to move left side with b/l cold LE. A s tat CT head and arterial doppler ordered showed multiple embolic CVAs and b/l LE acute arterial thrombus. Tele neurology did not recommend tPA as he has h/o hemorrhagic stoke back on March required craniotomy at [facility] per family. Vascular consulted for b/l LE thrombus recommended medical mx as he cannot be anticoagulate now. Plan for repeat CT head in 10-15 days to decide for anticoagulation. s/p extubation on 10/16/18. Planned for QUIQUE today, will follow result. CT head 10/11/18: There are chronic changes as described. There is no acute abnormality. . CT head 10/13/18: Hypodense areas seen in the right frontoparietal lobes are slightly worsened compared to prior exam, and cannot rule out involving acute/subacute infarcts versus possible underlying lesions. MRI should be considered for further evaluation. No intracranial hemorrhage visualized. MRI Brain 10/15/18: Numerous acute/subacute multilobar infarcts as described above involving the cerebrum and cerebellum. Hemorrhagic transformation of the largest infarcts that involve the right frontal and biparietal lobes and evidence of older hemorrhage at the margin of older cerebellar infarcts. Postsurgical changes in the poste rior fossa and several small acute/subacute cerebellar infarcts at the margin of larger late subacute infarct. LE arterial doppler 10/13/18: 1. Occlusive thrombus within the right external iliac artery extending to the right common femoral artery. 2. Occlusive thrombus within the left distal popliteal artery extending to the anterior and posterior tibial arteries which are also occluded. History Interval history: Patient seen and examined medical records reviewed Patient is chronically ill-looking cachectic and emaciated Scheduled for revascularization and possible amputation tomorrow per IR Patient is agitated, requiring restraints at times Vital signs noted Hospitalist Physical - Constitutional Vitals: Temp Pulse Resp BP Pulse Ox 98.3 F 76 18 113/65 98 10/22/18 04:37 10/22/18 04:37 10/22/18 04:37 10/22/18 04:37 10/22/18 04:37 General appearance: Present: mild distress, cachectic, disheveled, other (malnourished) - EENT Eyes: Present: PERRL, EOM intact - Neck Neck: Present: supple, normal ROM - Respiratory Respiratory effort: normal Respiratory: bilateral: diminished, negative: rales, rhonchi, wheezing - Cardiovascular Rhythm: regular Heart Sounds: Present: S1 & S2 - Extremities Extremities: No edema Extremity abnormal: erythema - Abdominal General gastrointestinal: soft, non-tender, non-distended, normal bowel sounds - Integumentary Integumentary: Present: clear, warm - Psychiatric Psychiatric: appropriate mood/affect, agitated, other (and he is at times) - Neurologic Neurologic: moves all extremities Results - Labs CBC & Chem 7: 10/22/18 05:38 10/22/18 05:38 Labs: Laboratory Last Values WBC 8.0 K/mm3 (4.5-11.0) 10/22/18 05:38 RBC 3.48 M/mm3 (3.65-5.03) L 10/22/18 05:38 Hgb 10.8 gm/dl (11.8-15.2) L 10/22/18 05:38 Hct 31.7 % (35.5-45.6) L 10/22/18 05:38 MCV 91 fl (84-94) 10/22/18 05:38 MCH 31 pg (28-32) 10/22/18 05:38 MCHC 34 % (32-34) 10/22/18 05:38 RDW 14.2 % (13.2-15.2) 10/22/18 05:38 Plt Count 458 K/mm3 (140-440) H 10/22/18 05:38 Lymph % (Auto) 21.5 % (13.4-35.0) 10/22/18 05:38 [place] % (Auto) 10.5 % (0.0-7.3) H 10/22/18 05:38 Eos % (Auto) 1.5 % (0.0-4.3) 10/22/18 05:38 Baso % (Auto) 0.6 % (0.0-1.8) 10/22/18 05:38 Lymph # 1.7 K/mm3 (1.2-5.4) 10/22/18 05:38 [place] # 0.8 K/mm3 (0.0-0.8) 10/22/18 05:38 Eos # 0.1 K/mm3 (0.0-0.4) 10/22/18 05:38 Baso # 0.0 K/mm3 (0.0-0.1) 10/22/18 05:38 Add Manual Diff Complete 10/12/18 04:04 Total Counted 100 10/12/18 04:04 Seg Neutrophils % 65.9 % (40.0-70.0) 10/22/18 05:38 Seg Neuts % (Manual) 32.0 % (40.0-70.0) L 10/12/18 04:04 39.0 % 10/12/18 04:04 19.0 % (13.4-35.0) 10/12/18 04:04 Reactive Lymphs % (Man) 0 % 10/12/18 04:04 8.0 % (0.0-7.3) H 10/12/18 04:04 0 % (0.0-4.3) 10/12/18 04:04 0 % (0.0-1.8) 10/12/18 04:04 2.0 % 10/12/18 04:04 0 % 10/12/18 04:04 0 % 10/12/18 04:04 0 % 10/12/18 04:04 Nucleated RBC % Not Reportable 10/12/18 04:04 Seg Neutrophils # 5.3 K/mm3 (1.8-7.7) 10/22/18 05:38 Seg Neutrophils # Man 7.8 K/mm3 (1.8-7.7) H 10/12/18 04:04 Band Neutrophils # 9.5 K/mm3 10/12/18 04:04 4.6 K/mm3 (1.2-5.4) 10/12/18 04:04 Abs React Lymphs (Man) 0.0 K/mm3 10/12/18 04:04 2.0 K/mm3 (0.0-0.8) H 10/12/18 04:04 0.0 K/mm3 (0.0-0.4) 10/12/18 04:04 0.0 K/mm3 (0.0-0.1) 10/12/18 04:04 0.5 K/mm3 10/12/18 04:04 0.0 K/mm3 10/12/18 04:04 0.0 K/mm3 10/12/18 04:04 Blast Cells # 0.0 K/mm3 10/12/18 04:04 Pathologist Review 10/11/18 00:16 WBC Morphology Not Reportable 10/12/18 04:04 Hypersegmented Neuts Not Reportable 10/12/18 04:04 Hyposegmented Neuts Not Reportable 10/12/18 04:04 Hypogranular Neuts Not Reportable 10/12/18 04:04 Not Reportable 10/12/18 04:04 Not Reportable 10/12/18 04:04 Not Reportable 10/12/18 04:04 Not Reportable 10/12/18 04:04 Not Reportable 10/12/18 04:04 Not Reportable 10/12/18 04:04 Appears normal 10/12/18 04:04 Not Reportable 10/12/18 04:04 Plt Clumps, EDTA Not Reportable 10/12/18 04:04 Not Reportable 10/12/18 04:04 Not Reportable 10/12/18 04:04 Not Reportable 10/12/18 04:04 Plt Morphology Comment Not Reportable 10/12/18 04:04 RBC Morphology Not Reportable 10/12/18 04:04 Dimorphic RBCs Not Reportable 10/12/18 04:04 Not Reportable 10/12/18 04:04 Not Reportable 10/12/18 04:04 Not Reportable 10/12/18 04:04 1+ 10/12/18 04:04 Not Reportable 10/12/18 04:04 Not Reportable 10/12/18 04:04 Not Reportable 10/12/18 04:04 Not Reportable 10/12/18 04:04 Not Reportable 10/12/18 04:04 Not Reportable 10/12/18 04:04 Not Reportable 10/12/18 04:04 Not Reportable 10/12/18 04:04 Not Reportable 10/12/18 04:04 Not Reportable 10/12/18 04:04 Not Reportable 10/12/18 04:04 Not Reportable 10/12/18 04:04 Not Reportable 10/12/18 04:04 Not Reportable 10/12/18 04:04 Not Reportable 10/12/18 04:04 Acanthocytes (Spur) Not Reportable 10/12/18 04:04 Rouleaux Not Reportable 10/12/18 04:04 Not Reportable 10/12/18 04:04 Not Reportable 10/12/18 04:04 Not Reportable 10/12/18 04:04 Not Reportable 10/12/18 04:04 Hem Pathologist Commnt No 10/12/18 04:04 PT 14.7 Sec. (12.2-14.9) 10/11/18 08:29 INR 1.08 (0.87-1.13) 10/11/18 08:29 APTT 24.1 Sec. (24.2-36.6) L 10/11/18 08:29 Heparin Anti-Xa, Unfract Negative (Negative) 10/15/18 12:00 POC ABG pH 7.393 (7.35-7.45) 10/16/18 12:51 POC ABG pCO2 48.9 (35-45) H 10/16/18 12:51 POC ABG pO2 92 (80-105) 10/16/18 12:51 POC ABG HCO3 29.8 (22-26 mml/L) 10/16/18 12:51 POC ABG Total CO2 31 (23-27mmol/L) 10/16/18 12:51 POC ABG O2 Sat 97 10/16/18 12:51 POC ABG Base Excess 5 ((-2) - (+3)mmol/L) 10/16/18 12:51 35 % 10/16/18 12:51 Sodium 141 mmol/L (137-145) 10/22/18 05:38 Potassium 4.2 mmol/L (3.6-5.0) 10/22/18 05:38 Chloride 106.7 mmol/L (98-107) 10/22/18 05:38 Carbon Dioxide 26 mmol/L (22-30) 10/22/18 05:38 13 mmol/L 10/22/18 05:38 BUN 10 mg/dL (9-20) 10/22/18 05:38 0.5 mg/dL (0.8-1.5) L 10/22/18 05:38 Estimated GFR > 60 ml/min 10/22/18 05:38 20 % 10/22/18 05:38 Glucose 146 mg/dL (75-100) H 10/22/18 05:38 POC Glucose 130 (70-105) H 10/22/18 07:48 Lactic Acid 2.70 mmol/L (0.7-2.0) H* 10/11/18 12:30 Calcium 7.8 mg/dL (8.4-10.2) L 10/22/18 05:38 Phosphorus 2.80 mg/dL (2.5-4.5) 10/21/18 04:59 Magnesium 1.90 mg/dL (1.7-2.3) 10/21/18 04:59 0.40 mg/dL (0.1-1.2) 10/22/18 05:38 AST 41 units/L (5-40) H 10/22/18 05:38 ALT 35 units/L (7-56) 10/22/18 05:38 52 units/L (35-129) 10/22/18 05:38 3647 units/L (55-170) H 10/12/18 04:04 CK-MB (CK-2) 48.3 ng/mL (0.0-4.0) H 10/12/18 04:04 CK-MB (CK-2) Rel Index 1.3 (0-4) 10/12/18 04:04 0.816 ng/mL (0.00-0.029) H* 10/13/18 16:15 5.5 g/dL (6.3-8.2) L 10/22/18 05:38 2.1 g/dL (3.9-5) L 10/22/18 05:38 0.6 % 10/22/18 05:38 Triglycerides 87 mg/dL (2-149) 10/11/18 00:16 Cholesterol 73 mg/dL (50-199) 10/11/18 00:16 51 mg/dL (50-130) 10/11/18 00:16 19 mg/dL (40-59) L 10/11/18 00:16 3.84 % 10/11/18 00:16 See scanned report 10/15/18 12:00 Yellow (Yellow) 10/11/18 01:42 Cloudy (Clear) 10/11/18 01:42 6.0 (5.0-7.0) 10/11/18 01:42 Ur Specific [place] 1.011 (1.003-1.030) 10/11/18 01:42 100 mg/dl mg/dL (Negative) 10/11/18 01:42 >=500 mg/dL (Negative) 10/11/18 01:42 Neg mg/dL (Negative) 10/11/18 01:42 Mod (Negative) 10/11/18 01:42 Neg (Negative) 10/11/18 01:42 Neg (Negative) 10/11/18 01:42 4.0 mg/dL (<2.0) 10/11/18 01:42 Ur Leukocyte Esterase Neg (Negative) 10/11/18 01:42 5.0 /HPF (0.0-6.0) 10/11/18 01:42 2.0 /HPF (0.0-6.0) 10/11/18 01:42 U Epithel Cells (Auto) < 1.0 /HPF (0-13.0) 10/11/18 01:42 Amorphous Crystals 1+ 10/11/18 01:42 Few /HPF 10/11/18 01:42 2+ /HPF (BRIDGES SUPERVISOR) 10/11/18 01:42 Vancomycin Trough 8.3 ug/mL (5.0-20.0) 10/13/18 05:40 Salicylates < 0.3 mg/dL (2.8-20.0) L 10/11/18 00:16 Presumptive positive 10/11/18 01:42 Presumptive negative 10/11/18 01:42 Acetaminophen < 5.0 ug/mL (10.0-30.0) L 10/11/18 00:16 Ur Barbiturates Screen Presumptive negative 10/11/18 01:42 Ur Phencyclidine Scrn Presumptive negative 10/11/18 01:42 Ur Amphetamines Screen Presumptive positive 10/11/18 01:42 U Benzodiazepines Scrn Presumptive positive 10/11/18 01:42 Presumptive negative 10/11/18 01:42 U Marijuana (THC) Screen Presumptive negative 10/11/18 01:42 Disclamer 10/11/18 01:42 Plasma/Serum Alcohol < 0.01 % (0-0.07) 10/11/18 00:16 Heparin-induced Plt Ab Negative (Negative) 10/15/18 12:00 UF Heparin High Dose 0 % Release 10/15/18 12:00 AURELIO UFH Low Dose 0.1 0 % Release 10/15/18 12:00 AURELIO UFH Low Dose 0.5 0 % Release 10/15/18 12:00 Active Medications - Current Medications Current Medications: Generic Name Dose Route Start Last Admin Trade Name Freq PRN Reason Stop Dose Admin Acetaminophen 650 mg 10/11/18 04:04 10/21/18 22:21 Tylenol PO 650 mg Q4H PRN Administration Pain MILD(1-3)/Fever >100.5/HOLLINS Acetaminophen 650 mg 10/18/18 11:53 Tylenol DE Q4H PRN Pain, Mild(1-3)/Fever>100.5/HOLLINS Albuterol 2.5 mg 10/19/18 00:54 Proventil IH Q4HRT PRN Shortness Of Breath Albuterol/Ipratropium 1 ampul 10/19/18 08:00 10/22/18 08:35 Duoneb *Not For Prn Use* IH 1 ampul TIDRT ISAAC Administration Alprazolam 1 mg 10/20/18 13:06 10/21/18 22:20 Xanax PO 1 mg TID PRN Administration Anxiety Lipase/Protease/Amylase 1 each 10/18/18 13:[address] 10,500 Unit FEEDTUBE PRN PRN For Clogged Feeding Tube Aspirin 325 mg 10/13/18 10:00 10/21/18 09:56 Aspirin PO 325 mg QDAY ISAAC Administration Citalopram Hydrobromide 10 mg 10/21/18 10:00 10/21/18 12:29 Celexa PO 10 mg QDAY ISAAC Administration Dextrose 0 ml 10/11/18 03:57 10/11/18 10:18 D50w (25gm) Syringe IV 10 ml PRN PRN Administration Hypoglycemia Enoxaparin Sodium 40 mg 10/18/18 22:00 10/21/18 22:20 Lovenox SUB-Q 40 mg QDAY@2200 ISAAC Administration Famotidine 20 mg 10/15/18 10:00 10/21/18 22:21 Pepcid PO 20 mg BID ISAAC Administration Hydromorphone HCl 0.5 mg 10/18/18 15:40 10/21/18 18:40 Dilaudid IV 0.5 mg Q3H PRN Administration Pain , Severe (7-10) Hydrophilic Ointment 1 applic 10/11/18 14:00 Vaseline Lip Therapy TP Q2HR PRN Dry Lips Insulin Human Regular 0 units 10/17/18 11:30 10/21/18 22:33 Humulin R SUB-Q 3 units ACHS ISAAC Administration Protocol Metoprolol Tartrate 25 mg 10/18/18 22:00 10/21/18 22:21 Lopressor PO 25 mg BID ISAAC Administration Metoprolol Tartrate 2.5 mg 10/18/18 18:51 10/18/18 22:19 Lopressor IV 2.5 mg Q6H PRN Administration Tachyarrhythmias Multi-Ingred Cream/Lotion/Oil/Oint 1 applic 10/11/18 14:00 Artificial Tears Ophth Oint OU Q4HR PRN Dry Eye(s) Ondansetron HCl 4 mg 10/11/18 04:04 Zofran IV Q8H PRN Nausea And Vomiting Oxycodone/Acetaminophen 1 tab 10/18/18 13:45 10/21/18 16:35 Percocet 5/325 PO 1 tab Q6H PRN Administration Pain, Moderate (4-6) Quetiapine Fumarate 200 mg 10/14/18 22:00 10/21/18 22:21 Seroquel PO 200 mg QHS ISAAC Administration Sodium Bicarbonate 325 mg 10/18/18 13:43 Sodium Bicarbonate FEEDTUBE PRN PRN For Clogged Feeding Tube Nutrition/Malnutrition Assess - Dietary Evaluation Nutrition/Malnutrition Findings: Nutrition Notes Start: 10/11/18 12:39 Freq: Status: Active Protocol: Document 10/19/18 16:24 RM (Rec: 10/19/18 16:30 RM [id number]) Nutrition Notes Initial or Follow up Reassessment Current Diagnosis Acute Kidney Injury,COPD, Diabetes,Hypertension,Stroke Other Pertinent Diagnosis Hepatitis C, cellulitis, Polysubstabce abuse, Opiate overdose, AMS Current Diet Pureed Labs/Tests Reviewed Pertinent Medications Reviewed Height 6 ft 3 in Weight 64.1 kg [place] Body Weight (kg) 89.09 BMI 17.6 Subjective/Other Information Consulted for TF recommendation again. Pureed diet recommended per acute care progress note . Per MD there are no plans for TF. Nurse stated that pt is not eating much of pureed diet and requested ONS. Burn Absent Trauma Absent #2 Nutrition Diagnosis Inadequate oral intake Diagnosis Progress(for reassessment Continues documentation) #1 Nutrition Diagnosis Malnutrition Diagnosis Progress(for reassessment Continues documentation) Is patient on ventilator? No Is Patient Ambulatory and/or Out of Bed No REE-([place]-confined to bed) 1872.552 Kcal/Kg value to use for calculation 36 Approximate Energy Requirements Using 2308 kcal/Kg Calculation Used for Recommendations Kcal/kg Additional Notes Protein Needs: 79-99g (1.2-1. 5g/kg) Fluid Needs: 1 ml/kcal Nutrition Intervention Change Diet Order: Pureed, Cardiac/Consistent CHO Add Supplement/Snack (indicate name/kcal Glucerna 1 daily /protein ) Provides kCal: 220 Provides Protein (gm) 10 Goal #1 Meet at least 75% of calorie and protein needs via PO and ONS intakes Goal #2 Wt gain/maintenance Anticipated Discharge Needs: Unknown at this time Follow-Up By: 10/22/18 Additional Comments Follow for PO and ONS intakes
[2018-10-22] MEDS: ASPIRIN PO SCH (09:51)
[2018-10-22] MEDS: PEPCID PO SCH ×2 (09:51→22:58)
[2018-10-22] MEDS: XANAX PO PRN (09:51)
[2018-10-22] MEDS: PERCOCET 5/325 PO PRN (09:51)
[2018-10-22] MEDS: LOPRESSOR PO SCH ×2 (09:51→22:58)
[2018-10-22] MEDS: celeXA PO SCH (09:52)
--- NOTE | 2018-10-22 11:26 | Progress Note ---
Assessment and Plan Pt appears more alert today and is tolerating pureed diet. He has been initiated on PO lopressor. Can consider initiation of ACEI/ARB if BPs permit. Recommend initiation of NOAC if/when okay per neurology. Will consider stress test to r/o ischemic CMP once medically stabilized as OP. Nothing further to add from cardiac perspective at this time. will sign off. Recommend follow up in our office with Dr. Shahid within 1-2 weeks of hospital discharge ([phone]). The patient has been seen in conjunction with Dr. Leger who agrees with the assessment and plan of care. - Patient Problems (1) Altered mental state Current Visit: Yes Status: Acute Qualifiers: Altered mental status type: unspecified Qualified Code(s): R41.82 - Altered mental status, unspecified (2) Opiate overdose Current Visit: Yes Status: Suspected (3) Acute CVA (cerebrovascular accident) Current Visit: Yes Status: Acute (4) Cardiomyopathy Current Visit: Yes Status: Chronic (5) Paroxysmal atrial fibrillation Current Visit: Yes Status: Acute (6) Seizure Current Visit: Yes Status: Acute (7) Acute respiratory failure Current Visit: Yes Status: Acute (8) NSTEMI (non-ST elevated myocardial infarction) Current Visit: Yes Status: Acute (9) 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 Current Visit: Yes Status: Chronic (10) Hypotension Current Visit: Yes Status: Resolved Qualifiers: Hypotension type: unspecified hypotension type Qualified Code(s): I95.9 - Hypotension, unspecified (11) Acute renal insufficiency Current Visit: Yes Status: Acute (12) Lactic acid acidosis Current Visit: Yes Status: Acute (13) Diabetes mellitus with hyperglycemia Current Visit: Yes Status: Acute (14) Elevated liver enzymes Current Visit: Yes Status: Acute (15) History of hepatitis Current Visit: Yes Status: Chronic (16) History of rheumatic fever as a child Current Visit: Yes Status: Chronic (17) Polysubstance abuse Current Visit: Yes Status: Chronic (18) Tobacco use Current Visit: Yes Status: Chronic (19) Sepsis Current Visit: Yes Status: Acute Qualifiers: Sepsis type: sepsis due to unspecified organism Qualified Code(s): A41.9 - Sepsis, unspecified organism (20) Arterial thrombosis Current Visit: Yes Status: Acute Subjective Date of service: 10/22/18 Principal diagnosis: Ac hypercapnic hypoxemic Resp failure; Drug OD; AE-COPD; NINOSKA; Seizures Interval history: Pt resting in bed, no current cardiac complaints. appears more alert today. tolerating pureed diet. Objective Last Vital Signs Temp 98.3 F 10/22/18 04:37 Pulse 95 H 10/22/18 09:51 Resp 20 10/22/18 08:45 BP 113/65 10/22/18 04:37 Pulse Ox 93 10/22/18 08:35 - Physical Examination General: No Apparent Distress Neck: Positive: neck supple Cardiac: Positive: Reg Rate and Rhythm, S1/S2 Lungs: Positive: Decreased Breath Sounds Neuro: Positive: Grossly Intact Abdomen: Positive: Soft. Negative: Tender Skin: Negative: Rash Extremities: Present: Other (chronic skin changes noted bilaterally. Patient has mottling of the left leg just proximal to the ankle) - Labs and Meds Cardiac Enzymes 10/22/18 Range/Units 05:38 AST 41 H (5-40) units/L CBC 10/22/18 Range/Units 05:38 WBC 8.0 (4.5-11.0) K/mm3 RBC 3.48 L (3.65-5.03) M/mm3 Hgb 10.8 L (11.8-15.2) gm/dl Hct 31.7 L (35.5-45.6) % Plt Count 458 H (140-440) K/mm3 Lymph # 1.7 (1.2-5.4) K/mm3 [place] # 0.8 (0.0-0.8) K/mm3 Eos # 0.1 (0.0-0.4) K/mm3 Baso # 0.0 (0.0-0.1) K/mm3 Comprehensive Metabolic Panel 10/22/18 Range/Units 05:38 Sodium 141 (137-145) mmol/L Potassium 4.2 (3.6-5.0) mmol/L Chloride 106.7 (98-107) mmol/L Carbon Dioxide 26 (22-30) mmol/L BUN 10 (9-20) mg/dL Creatinine 0.5 L (0.8-1.5) mg/dL Glucose 146 H (75-100) mg/dL Calcium 7.8 L (8.4-10.2) mg/dL AST 41 H (5-40) units/L ALT 35 (7-56) units/L Alkaline Phosphatase 52 (35-129) units/L Total Protein 5.5 L (6.3-8.2) g/dL Albumin 2.1 L (3.9-5) g/dL - Imaging and Cardiology EKG: report reviewed, image reviewed Echo: report reviewed (TDS, mild LVH, severe global hypokinesis of LV, unable to estimate LVEF, trace TR. ) - EKG Sinus rhythms and dysrhythmias: sinus rhythm - Allied health notes Allied health notes reviewed: nursing
[2018-10-22] MEDS: DILAUDID IV PRN ×2 (15:30→20:04)
--- NOTE | 2018-10-22 18:16 | Event Note ---
Date: 10/22/18 Tried to talk to patient, but respiratory therapy found out he had a vaporizer and took her hand vaporizer. Afterwards, I could no longer discuss anything with the patient as he fixated on his vaporizer. Right foot and leg warm with ischemic forefoot. Left calf and foot ischemic with warm upper calf. Patient tolerating full dose aspirin and lovenox 40. Will probably need angiogram in the next day or so. May benefit from fem-fem bypass to preserve RLE.
--- NOTE | 2018-10-22 18:43 | Progress Note ---
Assessment and Plan Patient weak. On 3 litres O2.O2 saturation 93%.No acute respiratory distress.Patient afebrile. No leukocytosis. - Patient Problems (1) Acute respiratory failure Current Visit: Yes Status: Acute Plan to address problem: O2 3 litres via nasal canula. Albuterol/atrovent aerosol treatments q 6 hours. Patient is on S/C Lovenox for DVT prophylaxis. Continue famotidine. (2) Acute CVA (cerebrovascular accident) Current Visit: Yes Status: Acute Plan to address problem: Management as per neurology. (3) Altered mental state Current Visit: Yes Status: Acute Qualifiers: Altered mental status type: unspecified Qualified Code(s): R41.82 - Altered mental status, unspecified Plan to address problem: Management as per primary care. (4) Atrial fibrillation Current Visit: Yes Status: Acute Plan to address problem: Management as per primary care and cardiology. (5) Diabetes mellitus with hyperglycemia Current Visit: Yes Status: Acute Plan to address problem: Management as per primary care. (6) Polysubstance abuse Current Visit: Yes Status: Chronic Plan to address problem: Management as per primary care. (7) Tobacco use Current Visit: Yes Status: Chronic Plan to address problem: Counselled to stop smoking. Subjective Date of service: 10/22/18 Principal diagnosis: Ac hypercapnic hypoxemic Resp failure; Drug OD; AE-COPD; NINOSKA; Seizures Interval history: Patient weak. On 3 litres O2.O2 saturation 93%.No acute respiratory distress.Patient afebrile. No leukocytosis. Objective Vital Signs - 12hr 10/22/18 10/22/18 10/22/18 08:35 08:45 09:51 Temperature Pulse Rate 95 H Pulse Rate [ 82 87 Anterior Bilateral Throughout] Respiratory Rate Respiratory 20 20 Rate [Anterior Bilateral Throughout] Blood Pressure O2 Sat by Pulse 93 Oximetry 10/22/18 10/22/18 10/22/18 13:32 13:42 13:59 Temperature 97.5 F L Pulse Rate 85 Pulse Rate [ 84 86 Anterior Bilateral Throughout] Respiratory 28 H Rate Respiratory 22 24 Rate [Anterior Bilateral Throughout] Blood Pressure 118/49 O2 Sat by Pulse 96 Oximetry 10/22/18 15:30 Temperature Pulse Rate Pulse Rate [ Anterior Bilateral Throughout] Respiratory 20 Rate Respiratory Rate [Anterior Bilateral Throughout] Blood Pressure O2 Sat by Pulse Oximetry Constitutional: no acute distress, other (middle aged but chronically ill looking CM; Atraumatic) Eyes: non-icteric ENT: oropharynx moist, other (mallampati 2) Neck: supple, no lymphadenopathy, no JVD Effort: normal Ascultation: Bilateral: diminished breath sounds, rhonchi Percussion: Bilateral: not dull Cardiovascular: irregular rhythm, other (No R/M) Gastrointestinal: normoactive bowel sounds, soft, non-tender, non-distended Integumentary: other (poor turgor) Extremities: no edema, no ischemia or petechiae, other (cool left leg campbell-down; with digital gangrene of left foot also) Neurologic: normal mental status, pupils equal and round, other (Left hemiparesis, improving) Psychiatric: mood appropriate, affect normal CBC and BMP: 10/22/18 05:38 10/22/18 05:38 ABG, PT/INR, D-dimer: ABG POC ABG pH 7.393 (7.35-7.45) 10/16/18 12:51 POC ABG pCO2 48.9 (35-45) H 10/16/18 12:51 POC ABG pO2 92 (80-105) 10/16/18 12:51 POC ABG HCO3 29.8 (22-26 mml/L) 10/16/18 12:51 POC ABG Total CO2 31 (23-27mmol/L) 10/16/18 12:51 POC ABG O2 Sat 97 10/16/18 12:51 PT/INR, D-dimer PT 14.7 Sec. (12.2-14.9) 10/11/18 08:29 INR 1.08 (0.87-1.13) 10/11/18 08:29 Abnormal lab findings: Abnormal Labs 10/11/18 10/11/18 10/11/18 00:16 00:16 00:16 WBC 20.1 H RBC Hgb Hct MCV 98 H RDW 15.4 H Plt Count Heard % (Auto) Heard # Seg Neutrophils % Seg Neuts % (Manual) Lymphocytes % (Manual) 5.0 L Monocytes % (Manual) 25.0 H Seg Neutrophils # Seg Neutrophils # Man 9.2 H Lymphocytes # (Manual) 1.0 L Monocytes # (Manual) 5.0 H APTT POC ABG pH POC ABG pCO2 POC ABG pO2 Sodium Potassium 5.8 H Chloride Carbon Dioxide 17 L BUN Creatinine 2.2 H Glucose 348 H POC Glucose Lactic Acid 13.70 H* Calcium 7.7 L Phosphorus Total Bilirubin 1.50 H AST 179 H ALT 110 H Total Creatine Kinase 324 H CK-MB (CK-2) Troponin T 0.257 H* Total Protein 5.9 L Albumin 2.9 L HDL Cholesterol 19 L Salicylates Acetaminophen 10/11/18 10/11/18 10/11/18 00:16 00:16 01:21 WBC RBC Hgb Hct MCV RDW Plt Count Heard % (Auto) Heard # Seg Neutrophils % Seg Neuts % (Manual) Lymphocytes % (Manual) Monocytes % (Manual) Seg Neutrophils # Seg Neutrophils # Man Lymphocytes # (Manual) Monocytes # (Manual) APTT POC ABG pH 7.110 L POC ABG pCO2 50.3 H POC ABG pO2 65 L Sodium Potassium Chloride Carbon Dioxide BUN Creatinine Glucose POC Glucose Lactic Acid Calcium Phosphorus Total Bilirubin AST ALT Total Creatine Kinase CK-MB (CK-2) Troponin T Total Protein Albumin HDL Cholesterol Salicylates < 0.3 L Acetaminophen < 5.0 L 10/11/18 10/11/18 10/11/18 01:22 03:27 04:14 WBC RBC Hgb Hct MCV RDW Plt Count Heard % (Auto) Heard # Seg Neutrophils % Seg Neuts % (Manual) Lymphocytes % (Manual) Monocytes % (Manual) Seg Neutrophils # Seg Neutrophils # Man Lymphocytes # (Manual) Monocytes # (Manual) APTT POC ABG pH POC ABG pCO2 POC ABG pO2 Sodium Potassium Chloride Carbon Dioxide BUN Creatinine Glucose POC Glucose Lactic Acid 8.50 H* 4.10 H* Calcium Phosphorus 4.90 H Total Bilirubin AST ALT Total Creatine Kinase CK-MB (CK-2) Troponin T Total Protein Albumin HDL Cholesterol Salicylates Acetaminophen 10/11/18 10/11/18 10/11/18 04:14 04:14 04:14 WBC RBC Hgb Hct MCV RDW Plt Count Heard % (Auto) Heard # Seg Neutrophils % Seg Neuts % (Manual) Lymphocytes % (Manual) Monocytes % (Manual) Seg Neutrophils # Seg Neutrophils # Man Lymphocytes # (Manual) Monocytes # (Manual) APTT POC ABG pH POC ABG pCO2 POC ABG pO2 Sodium Potassium 5.6 H Chloride Carbon Dioxide 19 L BUN Creatinine 1.6 H Glucose 329 H POC Glucose 328 H Lactic Acid Calcium 7.3 L Phosphorus Total Bilirubin AST ALT Total Creatine Kinase CK-MB (CK-2) Troponin T 1.130 H* D Total Protein Albumin HDL Cholesterol Salicylates Acetaminophen 10/11/18 10/11/18 10/11/18 05:10 05:32 05:58 WBC RBC Hgb Hct MCV RDW Plt Count Heard % (Auto) Heard # Seg Neutrophils % Seg Neuts % (Manual) Lymphocytes % (Manual) Monocytes % (Manual) Seg Neutrophils # Seg Neutrophils # Man Lymphocytes # (Manual) Monocytes # (Manual) APTT POC ABG pH 7.259 L POC ABG pCO2 45.6 H POC ABG pO2 Sodium Potassium Chloride 108.6 H Carbon Dioxide 20 L BUN Creatinine 1.8 H Glucose 269 H POC Glucose 273 H Lactic Acid Calcium 7.0 L Phosphorus Total Bilirubin AST ALT Total Creatine Kinase CK-MB (CK-2) Troponin T Total Protein Albumin HDL Cholesterol Salicylates Acetaminophen 10/11/18 10/11/18 10/11/18 05:58 06:39 07:00 WBC RBC Hgb Hct MCV RDW Plt Count Heard % (Auto) Heard # Seg Neutrophils % Seg Neuts % (Manual) Lymphocytes % (Manual) Monocytes % (Manual) Seg Neutrophils # Seg Neutrophils # Man Lymphocytes # (Manual) Monocytes # (Manual) APTT POC ABG pH POC ABG pCO2 POC ABG pO2 Sodium Potassium Chloride Carbon Dioxide BUN Creatinine Glucose POC Glucose 247 H Lactic Acid 3.20 H* 3.30 H* Calcium Phosphorus Total Bilirubin AST ALT Total Creatine Kinase CK-MB (CK-2) Troponin T Total Protein Albumin HDL Cholesterol Salicylates Acetaminophen 10/11/18 10/11/18 10/11/18 07:00 07:30 07:36 WBC RBC Hgb Hct MCV RDW Plt Count Heard % (Auto) Heard # Seg Neutrophils % Seg Neuts % (Manual) Lymphocytes % (Manual) Monocytes % (Manual) Seg Neutrophils # Seg Neutrophils # Man Lymphocytes # (Manual) Monocytes # (Manual) APTT POC ABG pH POC ABG pCO2 POC ABG pO2 Sodium 146 H Potassium Chloride 112.1 H Carbon Dioxide 21 L BUN Creatinine 1.6 H Glucose 218 H POC Glucose Lactic Acid 3.20 H* Calcium 7.0 L Phosphorus Total Bilirubin AST ALT Total Creatine Kinase CK-MB (CK-2) Troponin T 1.020 H* Total Protein Albumin HDL Cholesterol Salicylates Acetaminophen 10/11/18 10/11/18 10/11/18 07:43 08:29 08:29 WBC RBC Hgb 16.2 H Hct 49.9 H D MCV RDW Plt Count Heard % (Auto) Heard # Seg Neutrophils % Seg Neuts % (Manual) Lymphocytes % (Manual) Monocytes % (Manual) Seg Neutrophils # Seg Neutrophils # Man Lymphocytes # (Manual) Monocytes # (Manual) APTT POC ABG pH POC ABG pCO2 POC ABG pO2 Sodium Potassium Chloride Carbon Dioxide BUN Creatinine Glucose POC Glucose 174 H Lactic Acid 3.90 H* Calcium Phosphorus Total Bilirubin AST ALT Total Creatine Kinase CK-MB (CK-2) Troponin T Total Protein Albumin HDL Cholesterol Salicylates Acetaminophen 10/11/18 10/11/18 10/11/18 08:29 08:42 11:05 WBC RBC Hgb Hct MCV RDW Plt Count Heard % (Auto) Heard # Seg Neutrophils % Seg Neuts % (Manual) Lymphocytes % (Manual) Monocytes % (Manual) Seg Neutrophils # Seg Neutrophils # Man Lymphocytes # (Manual) Monocytes # (Manual) APTT 24.1 L POC ABG pH POC ABG pCO2 POC ABG pO2 Sodium 147 H Potassium Chloride 113.3 H Carbon Dioxide 21 L BUN Creatinine 1.7 H Glucose 119 H POC Glucose 164 H Lactic Acid Calcium 7.7 L Phosphorus Total Bilirubin AST ALT Total Creatine Kinase CK-MB (CK-2) Troponin T Total Protein Albumin HDL Cholesterol Salicylates Acetaminophen 10/11/18 10/11/18 10/11/18 11:05 11:06 12:30 WBC RBC Hgb Hct MCV RDW Plt Count Heard % (Auto) Heard # Seg Neutrophils % Seg Neuts % (Manual) Lymphocytes % (Manual) Monocytes % (Manual) Seg Neutrophils # Seg Neutrophils # Man Lymphocytes # (Manual) Monocytes # (Manual) APTT POC ABG pH POC ABG pCO2 POC ABG pO2 Sodium 148 H Potassium Chloride 113.4 H Carbon Dioxide 21 L BUN Creatinine 1.6 H Glucose 119 H POC Glucose 116 H Lactic Acid 3.20 H* Calcium 7.5 L Phosphorus Total Bilirubin AST ALT Total Creatine Kinase CK-MB (CK-2) Troponin T Total Protein Albumin HDL Cholesterol Salicylates Acetaminophen 10/11/18 10/11/18 10/11/18 12:30 13:16 13:25 WBC RBC Hgb Hct MCV RDW Plt Count Heard % (Auto) Heard # Seg Neutrophils % Seg Neuts % (Manual) Lymphocytes % (Manual) Monocytes % (Manual) Seg Neutrophils # Seg Neutrophils # Man Lymphocytes # (Manual) Monocytes # (Manual) APTT POC ABG pH 7.247 L POC ABG pCO2 48.4 H POC ABG pO2 Sodium Potassium Chloride Carbon Dioxide BUN Creatinine Glucose POC Glucose 112 H Lactic Acid 2.70 H* Calcium Phosphorus Total Bilirubin AST ALT Total Creatine Kinase CK-MB (CK-2) Troponin T Total Protein Albumin HDL Cholesterol Salicylates Acetaminophen 10/11/18 10/11/18 10/11/18 14:41 15:27 16:13 WBC RBC Hgb Hct MCV RDW Plt Count Heard % (Auto) Heard # Seg Neutrophils % Seg Neuts % (Manual) Lymphocytes % (Manual) Monocytes % (Manual) Seg Neutrophils # Seg Neutrophils # Man Lymphocytes # (Manual) Monocytes # (Manual) APTT POC ABG pH POC ABG pCO2 POC ABG pO2 Sodium Potassium Chloride Carbon Dioxide BUN Creatinine Glucose POC Glucose 127 H 141 H 134 H Lactic Acid Calcium Phosphorus Total Bilirubin AST ALT Total Creatine Kinase CK-MB (CK-2) Troponin T Total Protein Albumin HDL Cholesterol Salicylates Acetaminophen 10/11/18 10/11/18 10/11/18 17:18 18:23 19:38 WBC RBC Hgb Hct MCV RDW Plt Count Heard % (Auto) Heard # Seg Neutrophils % Seg Neuts % (Manual) Lymphocytes % (Manual) Monocytes % (Manual) Seg Neutrophils # Seg Neutrophils # Man Lymphocytes # (Manual) Monocytes # (Manual) APTT POC ABG pH POC ABG pCO2 POC ABG pO2 Sodium 148 H Potassium Chloride 112.7 H Carbon Dioxide BUN 23 H Creatinine Glucose 143 H POC Glucose 132 H 129 H Lactic Acid Calcium 7.9 L Phosphorus Total Bilirubin AST ALT Total Creatine Kinase CK-MB (CK-2) Troponin T Total Protein Albumin HDL Cholesterol Salicylates Acetaminophen 10/11/18 10/11/18 10/11/18 20:19 20:36 21:01 WBC RBC Hgb Hct MCV RDW Plt Count Heard % (Auto) Heard # Seg Neutrophils % Seg Neuts % (Manual) Lymphocytes % (Manual) Monocytes % (Manual) Seg Neutrophils # Seg Neutrophils # Man Lymphocytes # (Manual) Monocytes # (Manual) APTT POC ABG pH 7.281 L POC ABG pCO2 POC ABG pO2 Sodium Potassium Chloride Carbon Dioxide BUN Creatinine Glucose POC Glucose 129 H 151 H Lactic Acid Calcium Phosphorus Total Bilirubin AST ALT Total Creatine Kinase CK-MB (CK-2) Troponin T Total Protein Albumin HDL Cholesterol Salicylates Acetaminophen 10/11/18 10/11/18 10/12/18 22:04 23:15 01:18 WBC RBC Hgb Hct MCV RDW Plt Count Heard % (Auto) Heard # Seg Neutrophils % Seg Neuts % (Manual) Lymphocytes % (Manual) Monocytes % (Manual) Seg Neutrophils # Seg Neutrophils # Man Lymphocytes # (Manual) Monocytes # (Manual) APTT POC ABG pH POC ABG pCO2 POC ABG pO2 Sodium Potassium Chloride Carbon Dioxide BUN Creatinine Glucose POC Glucose 147 H 143 H 158 H Lactic Acid Calcium Phosphorus Total Bilirubin AST ALT Total Creatine Kinase CK-MB (CK-2) Troponin T Total Protein Albumin HDL Cholesterol Salicylates Acetaminophen 10/12/18 10/12/18 10/12/18 02:13 03:18 04:04 WBC RBC Hgb Hct MCV RDW Plt Count Heard % (Auto) Heard # Seg Neutrophils % Seg Neuts % (Manual) Lymphocytes % (Manual) Monocytes % (Manual) Seg Neutrophils # Seg Neutrophils # Man Lymphocytes # (Manual) Monocytes # (Manual) APTT POC ABG pH POC ABG pCO2 POC ABG pO2 Sodium 147 H Potassium Chloride 111.1 H Carbon Dioxide BUN 30 H Creatinine 2.0 H Glucose 154 H POC Glucose 148 H 142 H Lactic Acid Calcium 8.1 L Phosphorus Total Bilirubin AST 269 H ALT 204 H Total Creatine Kinase 3647 H CK-MB (CK-2) 48.3 H Troponin T 2.230 H* D Total Protein 5.8 L Albumin 2.6 L HDL Cholesterol Salicylates Acetaminophen 10/12/18 10/12/18 10/12/18 04:04 04:08 04:19 WBC 24.4 H RBC Hgb Hct MCV RDW Plt Count Heard % (Auto) Heard # Seg Neutrophils % Seg Neuts % (Manual) 32.0 L Lymphocytes % (Manual) Monocytes % (Manual) 8.0 H Seg Neutrophils # Seg Neutrophils # Man 7.8 H Lymphocytes # (Manual) Monocytes # (Manual) 2.0 H APTT POC ABG pH 7.317 L POC ABG pCO2 49.3 H POC ABG pO2 Sodium Potassium Chloride Carbon Dioxide BUN Creatinine Glucose POC Glucose 143 H Lactic Acid Calcium Phosphorus Total Bilirubin AST ALT Total Creatine Kinase CK-MB (CK-2) Troponin T Total Protein Albumin HDL Cholesterol Salicylates Acetaminophen 10/12/18 10/12/18 10/12/18 05:29 06:52 08:09 WBC RBC Hgb Hct MCV RDW Plt Count Heard % (Auto) Heard # Seg Neutrophils % Seg Neuts % (Manual) Lymphocytes % (Manual) Monocytes % (Manual) Seg Neutrophils # Seg Neutrophils # Man Lymphocytes # (Manual) Monocytes # (Manual) APTT POC ABG pH 7.322 L POC ABG pCO2 46.5 H POC ABG pO2 Sodium Potassium Chloride Carbon Dioxide BUN Creatinine Glucose POC Glucose 196 H 226 H Lactic Acid Calcium Phosphorus Total Bilirubin AST ALT Total Creatine Kinase CK-MB (CK-2) Troponin T Total Protein Albumin HDL Cholesterol Salicylates Acetaminophen 10/12/18 10/12/18 10/12/18 08:38 10:03 15:50 WBC RBC Hgb Hct MCV RDW Plt Count Heard % (Auto) Heard # Seg Neutrophils % Seg Neuts % (Manual) Lymphocytes % (Manual) Monocytes % (Manual) Seg Neutrophils # Seg Neutrophils # Man Lymphocytes # (Manual) Monocytes # (Manual) APTT POC ABG pH POC ABG pCO2 POC ABG pO2 Sodium Potassium Chloride Carbon Dioxide BUN Creatinine Glucose POC Glucose 138 H 148 H 221 H Lactic Acid Calcium Phosphorus Total Bilirubin AST ALT Total Creatine Kinase CK-MB (CK-2) Troponin T Total Protein Albumin HDL Cholesterol Salicylates Acetaminophen 10/12/18 10/12/18 10/12/18 18:39 20:56 21:34 WBC RBC Hgb Hct MCV RDW Plt Count Heard % (Auto) Heard # Seg Neutrophils % Seg Neuts % (Manual) Lymphocytes % (Manual) Monocytes % (Manual) Seg Neutrophils # Seg Neutrophils # Man Lymphocytes # (Manual) Monocytes # (Manual) APTT POC ABG pH 7.336 L POC ABG pCO2 46.0 H POC ABG pO2 Sodium Potassium Chloride Carbon Dioxide BUN Creatinine Glucose POC Glucose 255 H 260 H Lactic Acid Calcium Phosphorus Total Bilirubin AST ALT Total Creatine Kinase CK-MB (CK-2) Troponin T Total Protein Albumin HDL Cholesterol Salicylates Acetaminophen 10/13/18 10/13/18 10/13/18 02:29 05:09 05:40 WBC 17.0 H RBC Hgb Hct MCV RDW Plt Count Heard % (Auto) 9.2 H Heard # 1.6 H Seg Neutrophils % 76.2 H Seg Neuts % (Manual) Lymphocytes % (Manual) Monocytes % (Manual) Seg Neutrophils # 12.9 H Seg Neutrophils # Man Lymphocytes # (Manual) Monocytes # (Manual) APTT POC ABG pH POC ABG pCO2 POC ABG pO2 Sodium Potassium Chloride Carbon Dioxide BUN Creatinine Glucose POC Glucose 216 H 249 H Lactic Acid Calcium Phosphorus Total Bilirubin AST ALT Total Creatine Kinase CK-MB (CK-2) Troponin T Total Protein Albumin HDL Cholesterol Salicylates Acetaminophen 10/13/18 10/13/18 10/13/18 05:40 05:40 09:46 WBC RBC Hgb Hct MCV RDW Plt Count Heard % (Auto) Heard # Seg Neutrophils % Seg Neuts % (Manual) Lymphocytes % (Manual) Monocytes % (Manual) Seg Neutrophils # Seg Neutrophils # Man Lymphocytes # (Manual) Monocytes # (Manual) APTT POC ABG pH POC ABG pCO2 POC ABG pO2 Sodium 146 H Potassium Chloride 109.8 H Carbon Dioxide BUN 35 H Creatinine Glucose 245 H POC Glucose 235 H Lactic Acid Calcium 7.9 L Phosphorus Total Bilirubin AST ALT Total Creatine Kinase CK-MB (CK-2) Troponin T 0.952 H* D Total Protein Albumin HDL Cholesterol Salicylates Acetaminophen 10/13/18 10/13/18 10/13/18 13:58 16:15 17:30 WBC RBC Hgb Hct MCV RDW Plt Count Heard % (Auto) Heard # Seg Neutrophils % Seg Neuts % (Manual) Lymphocytes % (Manual) Monocytes % (Manual) Seg Neutrophils # Seg Neutrophils # Man Lymphocytes # (Manual) Monocytes # (Manual) APTT POC ABG pH POC ABG pCO2 51.2 H POC ABG pO2 Sodium Potassium Chloride Carbon Dioxide BUN Creatinine Glucose POC Glucose 139 H Lactic Acid Calcium Phosphorus Total Bilirubin AST ALT Total Creatine Kinase CK-MB (CK-2) Troponin T 0.816 H* Total Protein Albumin HDL Cholesterol Salicylates Acetaminophen 10/13/18 10/14/18 10/14/18 21:25 01:49 04:52 WBC RBC Hgb Hct MCV RDW Plt Count Heard % (Auto) Heard # Seg Neutrophils % Seg Neuts % (Manual) Lymphocytes % (Manual) Monocytes % (Manual) Seg Neutrophils # Seg Neutrophils # Man Lymphocytes # (Manual) Monocytes # (Manual) APTT POC ABG pH POC ABG pCO2 56.0 H POC ABG pO2 Sodium Potassium Chloride Carbon Dioxide BUN Creatinine Glucose POC Glucose 205 H 166 H Lactic Acid Calcium Phosphorus Total Bilirubin AST ALT Total Creatine Kinase CK-MB (CK-2) Troponin T Total Protein Albumin HDL Cholesterol Salicylates Acetaminophen 10/14/18 10/14/18 10/14/18 05:32 09:45 09:45 WBC RBC Hgb 11.4 L Hct 34.5 L MCV RDW Plt Count 139 L Heard % (Auto) Heard # Seg Neutrophils % Seg Neuts % (Manual) Lymphocytes % (Manual) Monocytes % (Manual) Seg Neutrophils # Seg Neutrophils # Man Lymphocytes # (Manual) Monocytes # (Manual) APTT POC ABG pH POC ABG pCO2 POC ABG pO2 Sodium 148 H Potassium Chloride 107.3 H Carbon Dioxide 34 H D BUN Creatinine 0.7 L D Glucose 191 H POC Glucose 164 H Lactic Acid Calcium 7.3 L Phosphorus Total Bilirubin AST 110 H ALT 91 H Total Creatine Kinase CK-MB (CK-2) Troponin T Total Protein 4.9 L Albumin 2.0 L HDL Cholesterol Salicylates Acetaminophen 10/14/18 10/14/18 10/14/18 10:54 12:20 18:30 WBC RBC Hgb Hct MCV RDW Plt Count Heard % (Auto) Heard # Seg Neutrophils % Seg Neuts % (Manual) Lymphocytes % (Manual) Monocytes % (Manual) Seg Neutrophils # Seg Neutrophils # Man Lymphocytes # (Manual) Monocytes # (Manual) APTT POC ABG pH POC ABG pCO2 POC ABG pO2 Sodium Potassium Chloride Carbon Dioxide BUN Creatinine Glucose POC Glucose 173 H 158 H 108 H Lactic Acid Calcium Phosphorus Total Bilirubin AST ALT Total Creatine Kinase CK-MB (CK-2) Troponin T Total Protein Albumin HDL Cholesterol Salicylates Acetaminophen 10/14/18 10/15/18 10/15/18 21:54 02:12 04:19 WBC RBC Hgb Hct MCV RDW Plt Count Heard % (Auto) Heard # Seg Neutrophils % Seg Neuts % (Manual) Lymphocytes % (Manual) Monocytes % (Manual) Seg Neutrophils # Seg Neutrophils # Man Lymphocytes # (Manual) Monocytes # (Manual) APTT POC ABG pH 7.491 H POC ABG pCO2 45.1 H POC ABG pO2 Sodium Potassium Chloride Carbon Dioxide BUN Creatinine Glucose POC Glucose 110 H 164 H Lactic Acid Calcium Phosphorus Total Bilirubin AST ALT Total Creatine Kinase CK-MB (CK-2) Troponin T Total Protein Albumin HDL Cholesterol Salicylates Acetaminophen 10/15/18 10/15/18 10/15/18 04:55 05:43 06:20 WBC RBC Hgb 11.7 L Hct 34.7 L MCV RDW Plt Count Heard % (Auto) Heard # Seg Neutrophils % Seg Neuts % (Manual) Lymphocytes % (Manual) Monocytes % (Manual) Seg Neutrophils # Seg Neutrophils # Man Lymphocytes # (Manual) Monocytes # (Manual) APTT POC ABG pH POC ABG pCO2 47.3 H POC ABG pO2 78 L Sodium Potassium Chloride Carbon Dioxide BUN Creatinine Glucose POC Glucose 250 H Lactic Acid Calcium Phosphorus Total Bilirubin AST ALT Total Creatine Kinase CK-MB (CK-2) Troponin T Total Protein Albumin HDL Cholesterol Salicylates Acetaminophen 10/15/18 10/15/18 10/15/18 12:00 12:00 12:11 WBC RBC Hgb 11.5 L Hct 34.0 L MCV RDW Plt Count Heard % (Auto) Heard # Seg Neutrophils % Seg Neuts % (Manual) Lymphocytes % (Manual) Monocytes % (Manual) Seg Neutrophils # Seg Neutrophils # Man Lymphocytes # (Manual) Monocytes # (Manual) APTT POC ABG pH POC ABG pCO2 POC ABG pO2 Sodium 147 H Potassium Chloride 108.5 H Carbon Dioxide BUN Creatinine 0.7 L Glucose 209 H POC Glucose 197 H Lactic Acid Calcium 7.3 L Phosphorus Total Bilirubin AST ALT Total Creatine Kinase CK-MB (CK-2) Troponin T Total Protein Albumin HDL Cholesterol Salicylates Acetaminophen 10/15/18 10/15/18 10/15/18 15:48 18:34 21:29 WBC RBC Hgb Hct MCV RDW Plt Count Heard % (Auto) Heard # Seg Neutrophils % Seg Neuts % (Manual) Lymphocytes % (Manual) Monocytes % (Manual) Seg Neutrophils # Seg Neutrophils # Man Lymphocytes # (Manual) Monocytes # (Manual) APTT POC ABG pH POC ABG pCO2 POC ABG pO2 Sodium Potassium Chloride Carbon Dioxide BUN Creatinine Glucose POC Glucose 220 H 249 H 209 H Lactic Acid Calcium Phosphorus Total Bilirubin AST ALT Total Creatine Kinase CK-MB (CK-2) Troponin T Total Protein Albumin HDL Cholesterol Salicylates Acetaminophen 10/16/18 10/16/18 10/16/18 02:16 03:50 05:57 WBC RBC Hgb Hct MCV RDW Plt Count Heard % (Auto) Heard # Seg Neutrophils % Seg Neuts % (Manual) Lymphocytes % (Manual) Monocytes % (Manual) Seg Neutrophils # Seg Neutrophils # Man Lymphocytes # (Manual) Monocytes # (Manual) APTT POC ABG pH POC ABG pCO2 55.8 H POC ABG pO2 Sodium Potassium Chloride Carbon Dioxide BUN Creatinine Glucose POC Glucose 110 H 209 H Lactic Acid Calcium Phosphorus Total Bilirubin AST ALT Total Creatine Kinase CK-MB (CK-2) Troponin T Total Protein Albumin HDL Cholesterol Salicylates Acetaminophen 10/16/18 10/16/18 10/16/18 10:51 12:51 15:01 WBC RBC Hgb Hct MCV RDW Plt Count Heard % (Auto) Heard # Seg Neutrophils % Seg Neuts % (Manual) Lymphocytes % (Manual) Monocytes % (Manual) Seg Neutrophils # Seg Neutrophils # Man Lymphocytes # (Manual) Monocytes # (Manual) APTT POC ABG pH POC ABG pCO2 48.9 H POC ABG pO2 Sodium Potassium Chloride Carbon Dioxide BUN Creatinine Glucose POC Glucose 198 H 196 H Lactic Acid Calcium Phosphorus Total Bilirubin AST ALT Total Creatine Kinase CK-MB (CK-2) Troponin T Total Protein Albumin HDL Cholesterol Salicylates Acetaminophen 10/16/18 10/16/18 10/17/18 17:34 21:59 02:17 WBC RBC Hgb Hct MCV RDW Plt Count Heard % (Auto) Heard # Seg Neutrophils % Seg Neuts % (Manual) Lymphocytes % (Manual) Monocytes % (Manual) Seg Neutrophils # Seg Neutrophils # Man Lymphocytes # (Manual) Monocytes # (Manual) APTT POC ABG pH POC ABG pCO2 POC ABG pO2 Sodium Potassium Chloride Carbon Dioxide BUN Creatinine Glucose POC Glucose 179 H 139 H 135 H Lactic Acid Calcium Phosphorus Total Bilirubin AST ALT Total Creatine Kinase CK-MB (CK-2) Troponin T Total Protein Albumin HDL Cholesterol Salicylates Acetaminophen 10/17/18 10/17/18 10/17/18 05:40 05:47 10:18 WBC RBC Hgb 11.3 L Hct 33.2 L MCV RDW Plt Count Heard % (Auto) Heard # Seg Neutrophils % Seg Neuts % (Manual) Lymphocytes % (Manual) Monocytes % (Manual) Seg Neutrophils # Seg Neutrophils # Man Lymphocytes # (Manual) Monocytes # (Manual) APTT POC ABG pH POC ABG pCO2 POC ABG pO2 Sodium Potassium Chloride Carbon Dioxide BUN Creatinine Glucose POC Glucose 125 H 139 H Lactic Acid Calcium Phosphorus Total Bilirubin AST ALT Total Creatine Kinase CK-MB (CK-2) Troponin T Total Protein Albumin HDL Cholesterol Salicylates Acetaminophen 10/17/18 10/18/18 10/18/18 23:11 08:49 11:31 WBC RBC Hgb Hct MCV RDW Plt Count Heard % (Auto) Heard # Seg Neutrophils % Seg Neuts % (Manual) Lymphocytes % (Manual) Monocytes % (Manual) Seg Neutrophils # Seg Neutrophils # Man Lymphocytes # (Manual) Monocytes # (Manual) APTT POC ABG pH POC ABG pCO2 POC ABG pO2 Sodium Potassium Chloride Carbon Dioxide BUN Creatinine Glucose POC Glucose 165 H 125 H 182 H Lactic Acid Calcium Phosphorus Total Bilirubin AST ALT Total Creatine Kinase CK-MB (CK-2) Troponin T Total Protein Albumin HDL Cholesterol Salicylates Acetaminophen 10/18/18 10/18/18 10/19/18 16:12 21:02 00:28 WBC RBC Hgb 11.4 L Hct 33.6 L MCV RDW Plt Count Heard % (Auto) 14.0 H Heard # 1.2 H Seg Neutrophils % Seg Neuts % (Manual) Lymphocytes % (Manual) Monocytes % (Manual) Seg Neutrophils # Seg Neutrophils # Man Lymphocytes # (Manual) Monocytes # (Manual) APTT POC ABG pH POC ABG pCO2 POC ABG pO2 Sodium Potassium Chloride Carbon Dioxide BUN Creatinine Glucose POC Glucose 168 H 324 H Lactic Acid Calcium Phosphorus Total Bilirubin AST ALT Total Creatine Kinase CK-MB (CK-2) Troponin T Total Protein Albumin HDL Cholesterol Salicylates Acetaminophen 10/19/18 10/19/18 10/19/18 04:57 04:57 07:32 WBC RBC Hgb 11.7 L Hct 34.0 L MCV RDW Plt Count Heard % (Auto) Heard # Seg Neutrophils % Seg Neuts % (Manual) Lymphocytes % (Manual) Monocytes % (Manual) Seg Neutrophils # Seg Neutrophils # Man Lymphocytes # (Manual) Monocytes # (Manual) APTT POC ABG pH POC ABG pCO2 POC ABG pO2 Sodium Potassium 3.5 L Chloride 108.6 H Carbon Dioxide BUN Creatinine 0.6 L Glucose POC Glucose 159 H Lactic Acid Calcium 7.9 L Phosphorus Total Bilirubin AST ALT Total Creatine Kinase CK-MB (CK-2) Troponin T Total Protein Albumin HDL Cholesterol Salicylates Acetaminophen 10/19/18 10/19/18 10/20/18 16:25 20:59 12:04 WBC RBC Hgb Hct MCV RDW Plt Count Heard % (Auto) Heard # Seg Neutrophils % Seg Neuts % (Manual) Lymphocytes % (Manual) Monocytes % (Manual) Seg Neutrophils # Seg Neutrophils # Man Lymphocytes # (Manual) Monocytes # (Manual) APTT POC ABG pH POC ABG pCO2 POC ABG pO2 Sodium Potassium Chloride Carbon Dioxide BUN Creatinine Glucose POC Glucose 134 H 110 H 338 H Lactic Acid Calcium Phosphorus Total Bilirubin AST ALT Total Creatine Kinase CK-MB (CK-2) Troponin T Total Protein Albumin HDL Cholesterol Salicylates Acetaminophen 10/20/18 10/20/18 10/21/18 17:55 22:07 04:59 WBC RBC Hgb 11.6 L Hct 33.9 L MCV RDW Plt Count Heard % (Auto) 9.7 H Heard # 0.9 H Seg Neutrophils % 70.7 H Seg Neuts % (Manual) Lymphocytes % (Manual) Monocytes % (Manual) Seg Neutrophils # Seg Neutrophils # Man Lymphocytes # (Manual) Monocytes # (Manual) APTT POC ABG pH POC ABG pCO2 POC ABG pO2 Sodium Potassium Chloride Carbon Dioxide BUN Creatinine Glucose POC Glucose 146 H 164 H Lactic Acid Calcium Phosphorus Total Bilirubin AST ALT Total Creatine Kinase CK-MB (CK-2) Troponin T Total Protein Albumin HDL Cholesterol Salicylates Acetaminophen 10/21/18 10/21/18 10/21/18 04:59 07:52 11:39 WBC RBC Hgb Hct MCV RDW Plt Count Heard % (Auto) Heard # Seg Neutrophils % Seg Neuts % (Manual) Lymphocytes % (Manual) Monocytes % (Manual) Seg Neutrophils # Seg Neutrophils # Man Lymphocytes # (Manual) Monocytes # (Manual) APTT POC ABG pH POC ABG pCO2 POC ABG pO2 Sodium Potassium 3.5 L Chloride 107.1 H Carbon Dioxide BUN Creatinine 0.5 L Glucose 158 H POC Glucose 142 H 194 H Lactic Acid Calcium 7.5 L Phosphorus Total Bilirubin AST ALT Total Creatine Kinase CK-MB (CK-2) Troponin T Total Protein 5.6 L Albumin 2.0 L HDL Cholesterol Salicylates Acetaminophen 10/21/18 10/21/18 10/22/18 17:05 20:37 05:38 WBC RBC 3.48 L Hgb 10.8 L Hct 31.7 L MCV RDW Plt Count 458 H Heard % (Auto) 10.5 H Heard # Seg Neutrophils % Seg Neuts % (Manual) Lymphocytes % (Manual) Monocytes % (Manual) Seg Neutrophils # Seg Neutrophils # Man Lymphocytes # (Manual) Monocytes # (Manual) APTT POC ABG pH POC ABG pCO2 POC ABG pO2 Sodium Potassium Chloride Carbon Dioxide BUN Creatinine Glucose POC Glucose 167 H 182 H Lactic Acid Calcium Phosphorus Total Bilirubin AST ALT Total Creatine Kinase CK-MB (CK-2) Troponin T Total Protein Albumin HDL Cholesterol Salicylates Acetaminophen 10/22/18 10/22/18 10/22/18 05:38 07:48 12:08 WBC RBC Hgb Hct MCV RDW Plt Count Heard % (Auto) Heard # Seg Neutrophils % Seg Neuts % (Manual) Lymphocytes % (Manual) Monocytes % (Manual) Seg Neutrophils # Seg Neutrophils # Man Lymphocytes # (Manual) Monocytes # (Manual) APTT POC ABG pH POC ABG pCO2 POC ABG pO2 Sodium Potassium Chloride Carbon Dioxide BUN Creatinine 0.5 L Glucose 146 H POC Glucose 130 H 167 H Lactic Acid Calcium 7.8 L Phosphorus Total Bilirubin AST 41 H ALT Total Creatine Kinase CK-MB (CK-2) Troponin T Total Protein 5.5 L Albumin 2.1 L HDL Cholesterol Salicylates Acetaminophen 10/22/18 16:45 WBC RBC Hgb Hct MCV RDW Plt Count Heard % (Auto) Heard # Seg Neutrophils % Seg Neuts % (Manual) Lymphocytes % (Manual) Monocytes % (Manual) Seg Neutrophils # Seg Neutrophils # Man Lymphocytes # (Manual) Monocytes # (Manual) APTT POC ABG pH POC ABG pCO2 POC ABG pO2 Sodium Potassium Chloride Carbon Dioxide BUN Creatinine Glucose POC Glucose 113 H Lactic Acid Calcium Phosphorus Total Bilirubin AST ALT Total Creatine Kinase CK-MB (CK-2) Troponin T Total Protein Albumin HDL Cholesterol Salicylates Acetaminophen Chest x-ray: report reviewed (Hyperinfation, mild air space disease left lower lobe.), image reviewed Allied health notes reviewed: nursing
[2018-10-22] MEDS: LOVENOX SUB-Q SCH (22:58)
[2018-10-23 05:25] LABS: Basophils % (Auto) 0.6 % (0.0-1.8); Eosinophils # (Auto) 0.1 K/mm3 (0.0-0.4); Eosinophils % (Auto) 1.6 % (0.0-4.3); Hematocrit 34.7 % (35.5-45.6); Hemoglobin 11.7 gm/dl (11.8-15.2); Lymphocytes # (Auto) 1.5 K/mm3 (1.2-5.4); Lymphocytes % (Auto) 17.5 % (13.4-35.0); Mean Corpuscular HGB Conc 34 % (32-34); Mean Corpuscular Volume 92 fl (84-94); Monocytes # (Auto) 0.8 K/mm3 (0.0-0.8); Monocytes % (Auto) 8.7 % (0.0-7.3); Platelet Count 523 K/mm3 (140-440); Red Blood Count 3.77 M/mm3 (3.65-5.03); Red Cell Distribution Width 14.4 % (13.2-15.2)
[2018-10-23] MEDS: PERCOCET 5/325 PO PRN ×2 (05:34→20:15)
[2018-10-23 05:35] LABS: INR 0.97 (0.87-1.13)
[2018-10-23 05:46] LABS: Alanine Aminotransferase 44 units/L (7-56); Albumin 2.3 g/dL (3.9-5); BUN/Creatinine Ratio 14; Blood Urea Nitrogen 7 mg/dL (9-20); Hemolysis Index 13
[2018-10-23] MEDS: DUONEB *Not for PRN Use IH SCH ×3 (07:18→21:14)
[2018-10-23] MEDS: HumuLIN R SUB-Q SCH ×4 (07:30→23:21)
[2018-10-23] MEDS: DILAUDID IV PRN ×4 (09:08→18:39)
[2018-10-23] MEDS: ASPIRIN PO SCH (09:09)
[2018-10-23] MEDS: PEPCID PO SCH ×2 (09:09→21:50)
[2018-10-23] MEDS: LOPRESSOR PO SCH ×2 (09:10→21:50)
[2018-10-23] MEDS: celeXA PO SCH (09:10)
--- NOTE | 2018-10-23 09:55 | Progress Note ---
Assessment and Plan Assessment and plan: --Acute thrombus in bilateral lower extremities, 10/13/18 LE arterial doppler Not a candidate for anticoagulation due to recent CVA Peripheral arterial disease/ischemia vascular planning revascularization /surgical intervention tomorrow --Possible acute/subacute right FT CVA Initial CT head, no acute finding, 10/13/18 found to have left-sided weakness MRI brain showed numerous acute/subacute multilobar infarcts involving the cerebrum and cerebellum including Hemorrhagic transformation of the right frontal and biparietal lobes was Not a candidate for tPA, monitor off aspirin per teleneurology QUIQUE ; no thrombus or shunt, Speech recommended pureed diet --Severe sepsis with shock; present on admission Probably due to aspiration pneumonia, completed total 7 days of antibiotics off pressors --LLL pneumonia : completed treatment --Acute respiratory failure with hypoxia and hypercapnia: Requiring intubation, extubated, nebs , supplemental O2 as needed --Hyperglycemia:cont SSI for now, diabetic diet --Acute toxic/metabolic encephalopathy, improved --Seizure; seizure precautions, no new episodes of seizure Ativan when necessary, neurology did not recommend antiepileptic medications --Elevated troponin/NSTEMI type 2 Echocardiogram for further evaluation - Ef 25-30% Cardiology consulted, medical Mx for now, --Acute systolic CHF, Ef 25-30%, anti-failure medications --ARF, due to vasomotor nephropathy, resolved --Hyperkalemia, resolved --Abnormal LFT Probably due to sepsis and chronic hepatitis C virus infection Abdominal US showed no sign of cirrhosis --Severe protein calorie malnutrition; nutrition supplements Dietitian consulted --DVT prophylaxis with heparin and GI prophylaxis with famotidine Disposition: Possible revascularization/surgical intervention on Monday Plan of care is reviewed with the patient and his nurse History Interval history: Patient seen and examined medical records reviewed Patient is scheduled for revascularization/surgical procedure tomorrow No new complaints, patient is confused at times Restraint for safety Vital signs noted Hospitalist Physical - Constitutional Vitals: Temp Pulse Resp BP Pulse Ox 98.3 F 90 16 113/70 99 10/23/18 05:17 10/23/18 09:10 10/23/18 07:28 10/23/18 09:10 10/23/18 07:18 General appearance: Present: mild distress, cachectic, disheveled, other (malnourished) - EENT Eyes: Present: PERRL, EOM intact - Neck Neck: Present: supple, normal ROM - Respiratory Respiratory effort: normal Respiratory: bilateral: diminished, negative: rales, rhonchi, wheezing - Cardiovascular Rhythm: regular Heart Sounds: Present: S1 & S2 - Extremities Extremities: abnormal Extremity abnormal: pulses diminished - Abdominal General gastrointestinal: soft, non-tender, non-distended, normal bowel sounds - Integumentary Integumentary: Present: clear, warm - Psychiatric Psychiatric: other (confused at times) - Neurologic Neurologic: moves all extremities Results - Labs CBC & Chem 7: 10/23/18 04:38 10/23/18 04:38 Labs: Laboratory Last Values WBC 8.6 K/mm3 (4.5-11.0) 10/23/18 04:38 RBC 3.77 M/mm3 (3.65-5.03) 10/23/18 04:38 Hgb 11.7 gm/dl (11.8-15.2) L 10/23/18 04:38 Hct 34.7 % (35.5-45.6) L 10/23/18 04:38 MCV 92 fl (84-94) 10/23/18 04:38 MCH 31 pg (28-32) 10/23/18 04:38 MCHC 34 % (32-34) 10/23/18 04:38 RDW 14.4 % (13.2-15.2) 10/23/18 04:38 Plt Count 523 K/mm3 (140-440) H 10/23/18 04:38 Lymph % (Auto) 17.5 % (13.4-35.0) 10/23/18 04:38 Noble % (Auto) 8.7 % (0.0-7.3) H 10/23/18 04:38 Eos % (Auto) 1.6 % (0.0-4.3) 10/23/18 04:38 Baso % (Auto) 0.6 % (0.0-1.8) 10/23/18 04:38 Lymph # 1.5 K/mm3 (1.2-5.4) 10/23/18 04:38 Noble # 0.8 K/mm3 (0.0-0.8) 10/23/18 04:38 Eos # 0.1 K/mm3 (0.0-0.4) 10/23/18 04:38 Baso # 0.0 K/mm3 (0.0-0.1) 10/23/18 04:38 Add Manual Diff Complete 10/12/18 04:04 Total Counted 100 10/12/18 04:04 Seg Neutrophils % 71.6 % (40.0-70.0) H 10/23/18 04:38 Seg Neuts % (Manual) 32.0 % (40.0-70.0) L 10/12/18 04:04 39.0 % 10/12/18 04:04 19.0 % (13.4-35.0) 10/12/18 04:04 Reactive Lymphs % (Man) 0 % 10/12/18 04:04 8.0 % (0.0-7.3) H 10/12/18 04:04 0 % (0.0-4.3) 10/12/18 04:04 0 % (0.0-1.8) 10/12/18 04:04 2.0 % 10/12/18 04:04 0 % 10/12/18 04:04 0 % 10/12/18 04:04 0 % 10/12/18 04:04 Nucleated RBC % Not Reportable 10/12/18 04:04 Seg Neutrophils # 6.2 K/mm3 (1.8-7.7) 10/23/18 04:38 Seg Neutrophils # Man 7.8 K/mm3 (1.8-7.7) H 10/12/18 04:04 Band Neutrophils # 9.5 K/mm3 10/12/18 04:04 4.6 K/mm3 (1.2-5.4) 10/12/18 04:04 Abs React Lymphs (Man) 0.0 K/mm3 10/12/18 04:04 2.0 K/mm3 (0.0-0.8) H 10/12/18 04:04 0.0 K/mm3 (0.0-0.4) 10/12/18 04:04 0.0 K/mm3 (0.0-0.1) 10/12/18 04:04 0.5 K/mm3 10/12/18 04:04 0.0 K/mm3 10/12/18 04:04 0.0 K/mm3 10/12/18 04:04 Blast Cells # 0.0 K/mm3 10/12/18 04:04 Pathologist Review 10/11/18 00:16 WBC Morphology Not Reportable 10/12/18 04:04 Hypersegmented Neuts Not Reportable 10/12/18 04:04 Hyposegmented Neuts Not Reportable 10/12/18 04:04 Hypogranular Neuts Not Reportable 10/12/18 04:04 Not Reportable 10/12/18 04:04 Not Reportable 10/12/18 04:04 Not Reportable 10/12/18 04:04 Not Reportable 10/12/18 04:04 Not Reportable 10/12/18 04:04 Not Reportable 10/12/18 04:04 Appears normal 10/12/18 04:04 Not Reportable 10/12/18 04:04 Plt Clumps, EDTA Not Reportable 10/12/18 04:04 Not Reportable 10/12/18 04:04 Not Reportable 10/12/18 04:04 Not Reportable 10/12/18 04:04 Plt Morphology Comment Not Reportable 10/12/18 04:04 RBC Morphology Not Reportable 10/12/18 04:04 Dimorphic RBCs Not Reportable 10/12/18 04:04 Not Reportable 10/12/18 04:04 Not Reportable 10/12/18 04:04 Not Reportable 10/12/18 04:04 1+ 10/12/18 04:04 Not Reportable 10/12/18 04:04 Not Reportable 10/12/18 04:04 Not Reportable 10/12/18 04:04 Not Reportable 10/12/18 04:04 Not Reportable 10/12/18 04:04 Not Reportable 10/12/18 04:04 Not Reportable 10/12/18 04:04 Not Reportable 10/12/18 04:04 Not Reportable 10/12/18 04:04 Not Reportable 10/12/18 04:04 Not Reportable 10/12/18 04:04 Not Reportable 10/12/18 04:04 Not Reportable 10/12/18 04:04 Not Reportable 10/12/18 04:04 Not Reportable 10/12/18 04:04 Acanthocytes (Spur) Not Reportable 10/12/18 04:04 Rouleaux Not Reportable 10/12/18 04:04 Not Reportable 10/12/18 04:04 Not Reportable 10/12/18 04:04 Not Reportable 10/12/18 04:04 Not Reportable 10/12/18 04:04 Hem Pathologist Commnt No 10/12/18 04:04 PT 13.5 Sec. (12.2-14.9) 10/23/18 04:38 INR 0.97 (0.87-1.13) 10/23/18 04:38 APTT 24.1 Sec. (24.2-36.6) L 10/11/18 08:29 Heparin Anti-Xa, Unfract Negative (Negative) 10/15/18 12:00 POC ABG pH 7.393 (7.35-7.45) 10/16/18 12:51 POC ABG pCO2 48.9 (35-45) H 10/16/18 12:51 POC ABG pO2 92 (80-105) 10/16/18 12:51 POC ABG HCO3 29.8 (22-26 mml/L) 10/16/18 12:51 POC ABG Total CO2 31 (23-27mmol/L) 10/16/18 12:51 POC ABG O2 Sat 97 10/16/18 12:51 POC ABG Base Excess 5 ((-2) - (+3)mmol/L) 10/16/18 12:51 35 % 10/16/18 12:51 Sodium 140 mmol/L (137-145) 10/23/18 04:38 Potassium 4.5 mmol/L (3.6-5.0) 10/23/18 04:38 Chloride 106.8 mmol/L (98-107) 10/23/18 04:38 Carbon Dioxide 26 mmol/L (22-30) 10/23/18 04:38 12 mmol/L 10/23/18 04:38 BUN 7 mg/dL (9-20) L 10/23/18 04:38 0.5 mg/dL (0.8-1.5) L 10/23/18 04:38 Estimated GFR > 60 ml/min 10/23/18 04:38 14 % 10/23/18 04:38 Glucose 150 mg/dL (75-100) H 10/23/18 04:38 POC Glucose 123 (70-105) H 10/23/18 07:56 Lactic Acid 2.70 mmol/L (0.7-2.0) H* 10/11/18 12:30 Calcium 8.0 mg/dL (8.4-10.2) L 10/23/18 04:38 Phosphorus 2.80 mg/dL (2.5-4.5) 10/21/18 04:59 Magnesium 1.90 mg/dL (1.7-2.3) 10/21/18 04:59 0.50 mg/dL (0.1-1.2) 10/23/18 04:38 AST 55 units/L (5-40) H 10/23/18 04:38 ALT 44 units/L (7-56) 10/23/18 04:38 58 units/L (35-129) 10/23/18 04:38 3647 units/L (55-170) H 10/12/18 04:04 CK-MB (CK-2) 48.3 ng/mL (0.0-4.0) H 10/12/18 04:04 CK-MB (CK-2) Rel Index 1.3 (0-4) 10/12/18 04:04 0.816 ng/mL (0.00-0.029) H* 10/13/18 16:15 6.2 g/dL (6.3-8.2) L 10/23/18 04:38 2.3 g/dL (3.9-5) L 10/23/18 04:38 0.6 % 10/23/18 04:38 Triglycerides 87 mg/dL (2-149) 10/11/18 00:16 Cholesterol 73 mg/dL (50-199) 10/11/18 00:16 51 mg/dL (50-130) 10/11/18 00:16 19 mg/dL (40-59) L 10/11/18 00:16 3.84 % 10/11/18 00:16 See scanned report 10/15/18 12:00 Yellow (Yellow) 10/11/18 01:42 Cloudy (Clear) 10/11/18 01:42 6.0 (5.0-7.0) 10/11/18 01:42 Ur Specific Marshall 1.011 (1.003-1.030) 10/11/18 01:42 100 mg/dl mg/dL (Negative) 10/11/18 01:42 >=500 mg/dL (Negative) 10/11/18 01:42 Neg mg/dL (Negative) 10/11/18 01:42 Mod (Negative) 10/11/18 01:42 Neg (Negative) 10/11/18 01:42 Neg (Negative) 10/11/18 01:42 4.0 mg/dL (<2.0) 10/11/18 01:42 Ur Leukocyte Esterase Neg (Negative) 10/11/18 01:42 5.0 /HPF (0.0-6.0) 10/11/18 01:42 2.0 /HPF (0.0-6.0) 10/11/18 01:42 U Epithel Cells (Auto) < 1.0 /HPF (0-13.0) 10/11/18 01:42 Amorphous Crystals 1+ 10/11/18 01:42 Few /HPF 10/11/18 01:42 2+ /HPF ([employer]) 10/11/18 01:42 Vancomycin Trough 8.3 ug/mL (5.0-20.0) 10/13/18 05:40 Salicylates < 0.3 mg/dL (2.8-20.0) L 10/11/18 00:16 Presumptive positive 10/11/18 01:42 Presumptive negative 10/11/18 01:42 Acetaminophen < 5.0 ug/mL (10.0-30.0) L 10/11/18 00:16 Ur Barbiturates Screen Presumptive negative 10/11/18 01:42 Ur Phencyclidine Scrn Presumptive negative 10/11/18 01:42 Ur Amphetamines Screen Presumptive positive 10/11/18 01:42 U Benzodiazepines Scrn Presumptive positive 10/11/18 01:42 Presumptive negative 10/11/18 01:42 U Marijuana (THC) Screen Presumptive negative 10/11/18 01:42 Disclamer 10/11/18 01:42 Plasma/Serum Alcohol < 0.01 % (0-0.07) 10/11/18 00:16 Heparin-induced Plt Ab Negative (Negative) 10/15/18 12:00 UF Heparin High Dose 0 % Release 10/15/18 12:00 AURELIO UFH Low Dose 0.1 0 % Release 10/15/18 12:00 AURELIO UFH Low Dose 0.5 0 % Release 10/15/18 12:00 Active Medications - Current Medications Current Medications: Generic Name Dose Route Start Last Admin Trade Name Freq PRN Reason Stop Dose Admin Acetaminophen 650 mg 10/11/18 04:04 10/21/18 22:21 Tylenol PO 650 mg Q4H PRN Administration Pain MILD(1-3)/Fever >100.5/HOLLINS Acetaminophen 650 mg 10/18/18 11:53 Tylenol MI Q4H PRN Pain, Mild(1-3)/Fever>100.5/HOLLINS Albuterol 2.5 mg 10/19/18 00:54 Proventil IH Q4HRT PRN Shortness Of Breath Albuterol/Ipratropium 1 ampul 10/19/18 08:00 10/23/18 07:18 Duoneb *Not For Prn Use* IH 1 ampul TIDRT ISAAC Administration Alprazolam 1 mg 10/20/18 13:06 10/22/18 09:51 Xanax PO 1 mg TID PRN Administration Anxiety Lipase/Protease/Amylase 1 each 10/18/18 13:[address] 10,500 Unit FEEDTUBE PRN PRN For Clogged Feeding Tube Aspirin 325 mg 10/13/18 10:00 10/23/18 09:09 Aspirin PO 325 mg QDAY ISAAC Administration Citalopram Hydrobromide 10 mg 10/21/18 10:00 10/23/18 09:10 Celexa PO 10 mg QDAY ISAAC Administration Dextrose 0 ml 10/11/18 03:57 10/11/18 10:18 D50w (25gm) Syringe IV 10 ml PRN PRN Administration Hypoglycemia Enoxaparin Sodium 40 mg 10/18/18 22:00 10/22/18 22:58 Lovenox SUB-Q 40 mg QDAY@2200 ISAAC Administration Famotidine 20 mg 10/15/18 10:00 10/23/18 09:09 Pepcid PO 20 mg BID ISAAC Administration Hydromorphone HCl 0.5 mg 10/18/18 15:40 10/23/18 09:08 Dilaudid IV 0.5 mg Q3H PRN Administration Pain , Severe (7-10) Hydrophilic Ointment 1 applic 10/11/18 14:00 Vaseline Lip Therapy TP Q2HR PRN Dry Lips Insulin Human Regular 0 units 10/17/18 11:30 10/23/18 07:30 Humulin R SUB-Q Not Given ACHS [facility] Protocol Metoprolol Tartrate 25 mg 10/18/18 22:00 10/23/18 09:10 Lopressor PO 25 mg BID ISAAC Administration Metoprolol Tartrate 2.5 mg 10/18/18 18:51 10/18/18 22:19 Lopressor IV 2.5 mg Q6H PRN Administration Tachyarrhythmias Multi-Ingred Cream/Lotion/Oil/Oint 1 applic 10/11/18 14:00 Artificial Tears Ophth Oint OU Q4HR PRN Dry Eye(s) Ondansetron HCl 4 mg 10/11/18 04:04 Zofran IV Q8H PRN Nausea And Vomiting Oxycodone/Acetaminophen 1 tab 10/18/18 13:45 10/23/18 05:34 Percocet 5/325 PO 1 tab Q6H PRN Administration Pain, Moderate (4-6) Quetiapine Fumarate 200 mg 10/14/18 22:00 10/22/18 22:58 Seroquel PO 200 mg QHS ISAAC Administration Sodium Bicarbonate 325 mg 10/18/18 13:43 Sodium Bicarbonate FEEDTUBE PRN PRN For Clogged Feeding Tube Nutrition/Malnutrition Assess - Dietary Evaluation Nutrition/Malnutrition Findings: Nutrition Notes Start: 10/11/18 12:39 Freq: Status: Active Protocol: Document 10/22/18 15:03 RM (Rec: 10/22/18 15:11 [email or web address]) Nutrition Notes Initial or Follow up Reassessment Current Diagnosis Acute Kidney Injury,COPD, Diabetes,Hypertension,Stroke Other Pertinent Diagnosis Sacral PU, R & L leg skin tear , Hep C, cellulitis, Opiate overdose, AMS Current Diet Pureed Labs/Tests Reviewed Pertinent Medications Reviewed Height 6 ft 3 in Weight 66.6 kg [place] Body Weight (kg) 89.09 BMI 18.3 Subjective/Other Information Pt asleep at time of visit. Per tech pt eats bites of his meals but drinks all of his liquids including the Glucerna . Percent of energy/protein needs met: 9%/13% Burn Absent Trauma Absent #2 Nutrition Diagnosis Inadequate oral intake As Evidenced by Signs and Symptoms pt tech statement that pt drinks the Glucerna Diagnosis Progress(for reassessment Improved documentation) #1 Nutrition Diagnosis Malnutrition Diagnosis Progress(for reassessment Continues documentation) Is patient on ventilator? No Is Patient Ambulatory and/or Out of Bed No REE[facility]) 1902.528 Kcal/Kg value to use for calculation 36 Approximate Energy Requirements Using 2398 kcal/Kg Calculation Used for Recommendations Kcal/kg Additional Notes Protein Needs: 79-99g (1.2-1. 5g/kg) Fluid Needs: 1 ml/kcal Nutrition Intervention Change Diet Order: Pureed, Cardiac/Consistent CHO Add Supplement/Snack (indicate name/kcal Glucerna BID /protein ) Provides kCal: 440 Provides Protein (gm) 20 Goal #1 Meet at least 75% of calorie and protein needs via PO and ONS intakes Goal #2 Wt gain/maintenance Anticipated Discharge Needs: Pureed diet Follow-Up By: 10/24/18 Additional Comments Follow for PO and ONS intakes
--- NOTE | 2018-10-23 11:03 | Event Note ---
Date: 10/23/18 The patient will be scheduled for angiography and possible revascularization tomorrow.
[2018-10-23] MEDS: XANAX PO PRN ×2 (12:34→20:36)
--- NOTE | 2018-10-23 13:18 | Progress Note ---
Assessment and Plan Patient has necrosis feet both legs. Patient weak and resting on 2 litres O2.O2 saturation 90%.No acute respiratory distress. Patient scheduled for angiography and revascularization By Laura Murray. - Patient Problems (1) Acute respiratory failure Current Visit: Yes Status: Acute Plan to address problem: O2 3 litres via nasal canula. Albuterol/atrovent aerosol treatments q 6 hours. Patient is on S/C Lovenox for DVT prophylaxis. Continue famotidine. (2) Acute CVA (cerebrovascular accident) Current Visit: Yes Status: Acute Plan to address problem: Management as per neurology. (3) Altered mental state Current Visit: Yes Status: Acute Qualifiers: Altered mental status type: unspecified Qualified Code(s): R41.82 - Altered mental status, unspecified Plan to address problem: Management as per primary care. (4) Atrial fibrillation Current Visit: Yes Status: Acute Plan to address problem: Management as per primary care and cardiology. (5) Diabetes mellitus with hyperglycemia Current Visit: Yes Status: Acute Plan to address problem: Management as per primary care. (6) Polysubstance abuse Current Visit: Yes Status: Chronic Plan to address problem: Management as per primary care. (7) Tobacco use Current Visit: Yes Status: Chronic Plan to address problem: Counselled to stop smoking. Subjective Date of service: 10/23/18 Principal diagnosis: Ac hypercapnic hypoxemic Resp failure; Drug OD; AE-COPD; NINOSKA; Seizures Interval history: Patient has necrosis feet both legs. Patient weak and resting on 2 litres O2.O2 saturation 90%.No acute respiratory distress. Patient scheduled for angiography and revascularization By Laura Murray. Objective Vital Signs - 12hr 10/23/18 10/23/18 10/23/18 05:17 07:18 07:28 Temperature 98.3 F Pulse Rate Pulse Rate [ 91 H 92 H Bilateral] Respiratory 24 Rate Respiratory 16 16 Rate [Bilateral ] Blood Pressure 113/67 O2 Sat by Pulse 99 Oximetry 10/23/18 10/23/18 09:10 12:28 Temperature 97.3 F L Pulse Rate 90 83 Pulse Rate [ Bilateral] Respiratory 18 Rate Respiratory Rate [Bilateral ] Blood Pressure 113/70 103/67 O2 Sat by Pulse 92 Oximetry Constitutional: no acute distress, alert, other (middle aged but chronically ill looking CM; Atraumatic) Eyes: non-icteric ENT: oropharynx moist, other (mallampati 2) Neck: supple, no lymphadenopathy, no JVD Effort: normal Ascultation: Bilateral: diminished breath sounds, rhonchi Percussion: Bilateral: not dull Cardiovascular: irregular rhythm, other (No R/M) Gastrointestinal: normoactive bowel sounds, soft, non-tender, non-distended Integumentary: other (poor turgor) Extremities: no edema, no ischemia or petechiae, other (cool left leg campbell-down; with digital gangrene of left foot also) Neurologic: normal mental status, pupils equal and round, other (Left walter paresis, improving) Psychiatric: mood appropriate, affect normal CBC and BMP: 10/23/18 04:38 10/23/18 04:38 ABG, PT/INR, D-dimer: ABG POC ABG pH 7.393 (7.35-7.45) 10/16/18 12:51 POC ABG pCO2 48.9 (35-45) H 10/16/18 12:51 POC ABG pO2 92 (80-105) 10/16/18 12:51 POC ABG HCO3 29.8 (22-26 mml/L) 10/16/18 12:51 POC ABG Total CO2 31 (23-27mmol/L) 10/16/18 12:51 POC ABG O2 Sat 97 10/16/18 12:51 PT/INR, D-dimer PT 13.5 Sec. (12.2-14.9) 10/23/18 04:38 INR 0.97 (0.87-1.13) 10/23/18 04:38 Abnormal lab findings: Abnormal Labs 10/11/18 10/11/18 10/11/18 00:16 00:16 00:16 WBC 20.1 H RBC Hgb Hct MCV 98 H RDW 15.4 H Plt Count Will % (Auto) Will # Seg Neutrophils % Seg Neuts % (Manual) Lymphocytes % (Manual) 5.0 L Monocytes % (Manual) 25.0 H Seg Neutrophils # Seg Neutrophils # Man 9.2 H Lymphocytes # (Manual) 1.0 L Monocytes # (Manual) 5.0 H APTT POC ABG pH POC ABG pCO2 POC ABG pO2 Sodium Potassium 5.8 H Chloride Carbon Dioxide 17 L BUN Creatinine 2.2 H Glucose 348 H POC Glucose Lactic Acid 13.70 H* Calcium 7.7 L Phosphorus Total Bilirubin 1.50 H AST 179 H ALT 110 H Total Creatine Kinase 324 H CK-MB (CK-2) Troponin T 0.257 H* Total Protein 5.9 L Albumin 2.9 L HDL Cholesterol 19 L Salicylates Acetaminophen 10/11/18 10/11/18 10/11/18 00:16 00:16 01:21 WBC RBC Hgb Hct MCV RDW Plt Count Will % (Auto) Will # Seg Neutrophils % Seg Neuts % (Manual) Lymphocytes % (Manual) Monocytes % (Manual) Seg Neutrophils # Seg Neutrophils # Man Lymphocytes # (Manual) Monocytes # (Manual) APTT POC ABG pH 7.110 L POC ABG pCO2 50.3 H POC ABG pO2 65 L Sodium Potassium Chloride Carbon Dioxide BUN Creatinine Glucose POC Glucose Lactic Acid Calcium Phosphorus Total Bilirubin AST ALT Total Creatine Kinase CK-MB (CK-2) Troponin T Total Protein Albumin HDL Cholesterol Salicylates < 0.3 L Acetaminophen < 5.0 L 10/11/18 10/11/18 10/11/18 01:22 03:27 04:14 WBC RBC Hgb Hct MCV RDW Plt Count Will % (Auto) Will # Seg Neutrophils % Seg Neuts % (Manual) Lymphocytes % (Manual) Monocytes % (Manual) Seg Neutrophils # Seg Neutrophils # Man Lymphocytes # (Manual) Monocytes # (Manual) APTT POC ABG pH POC ABG pCO2 POC ABG pO2 Sodium Potassium Chloride Carbon Dioxide BUN Creatinine Glucose POC Glucose Lactic Acid 8.50 H* 4.10 H* Calcium Phosphorus 4.90 H Total Bilirubin AST ALT Total Creatine Kinase CK-MB (CK-2) Troponin T Total Protein Albumin HDL Cholesterol Salicylates Acetaminophen 10/11/18 10/11/18 10/11/18 04:14 04:14 04:14 WBC RBC Hgb Hct MCV RDW Plt Count Will % (Auto) Will # Seg Neutrophils % Seg Neuts % (Manual) Lymphocytes % (Manual) Monocytes % (Manual) Seg Neutrophils # Seg Neutrophils # Man Lymphocytes # (Manual) Monocytes # (Manual) APTT POC ABG pH POC ABG pCO2 POC ABG pO2 Sodium Potassium 5.6 H Chloride Carbon Dioxide 19 L BUN Creatinine 1.6 H Glucose 329 H POC Glucose 328 H Lactic Acid Calcium 7.3 L Phosphorus Total Bilirubin AST ALT Total Creatine Kinase CK-MB (CK-2) Troponin T 1.130 H* D Total Protein Albumin HDL Cholesterol Salicylates Acetaminophen 10/11/18 10/11/18 10/11/18 05:10 05:32 05:58 WBC RBC Hgb Hct MCV RDW Plt Count Will % (Auto) Will # Seg Neutrophils % Seg Neuts % (Manual) Lymphocytes % (Manual) Monocytes % (Manual) Seg Neutrophils # Seg Neutrophils # Man Lymphocytes # (Manual) Monocytes # (Manual) APTT POC ABG pH 7.259 L POC ABG pCO2 45.6 H POC ABG pO2 Sodium Potassium Chloride 108.6 H Carbon Dioxide 20 L BUN Creatinine 1.8 H Glucose 269 H POC Glucose 273 H Lactic Acid Calcium 7.0 L Phosphorus Total Bilirubin AST ALT Total Creatine Kinase CK-MB (CK-2) Troponin T Total Protein Albumin HDL Cholesterol Salicylates Acetaminophen 10/11/18 10/11/18 10/11/18 05:58 06:39 07:00 WBC RBC Hgb Hct MCV RDW Plt Count Will % (Auto) Will # Seg Neutrophils % Seg Neuts % (Manual) Lymphocytes % (Manual) Monocytes % (Manual) Seg Neutrophils # Seg Neutrophils # Man Lymphocytes # (Manual) Monocytes # (Manual) APTT POC ABG pH POC ABG pCO2 POC ABG pO2 Sodium Potassium Chloride Carbon Dioxide BUN Creatinine Glucose POC Glucose 247 H Lactic Acid 3.20 H* 3.30 H* Calcium Phosphorus Total Bilirubin AST ALT Total Creatine Kinase CK-MB (CK-2) Troponin T Total Protein Albumin HDL Cholesterol Salicylates Acetaminophen 10/11/18 10/11/18 10/11/18 07:00 07:30 07:36 WBC RBC Hgb Hct MCV RDW Plt Count Will % (Auto) Will # Seg Neutrophils % Seg Neuts % (Manual) Lymphocytes % (Manual) Monocytes % (Manual) Seg Neutrophils # Seg Neutrophils # Man Lymphocytes # (Manual) Monocytes # (Manual) APTT POC ABG pH POC ABG pCO2 POC ABG pO2 Sodium 146 H Potassium Chloride 112.1 H Carbon Dioxide 21 L BUN Creatinine 1.6 H Glucose 218 H POC Glucose Lactic Acid 3.20 H* Calcium 7.0 L Phosphorus Total Bilirubin AST ALT Total Creatine Kinase CK-MB (CK-2) Troponin T 1.020 H* Total Protein Albumin HDL Cholesterol Salicylates Acetaminophen 10/11/18 10/11/18 10/11/18 07:43 08:29 08:29 WBC RBC Hgb 16.2 H Hct 49.9 H D MCV RDW Plt Count Will % (Auto) Will # Seg Neutrophils % Seg Neuts % (Manual) Lymphocytes % (Manual) Monocytes % (Manual) Seg Neutrophils # Seg Neutrophils # Man Lymphocytes # (Manual) Monocytes # (Manual) APTT POC ABG pH POC ABG pCO2 POC ABG pO2 Sodium Potassium Chloride Carbon Dioxide BUN Creatinine Glucose POC Glucose 174 H Lactic Acid 3.90 H* Calcium Phosphorus Total Bilirubin AST ALT Total Creatine Kinase CK-MB (CK-2) Troponin T Total Protein Albumin HDL Cholesterol Salicylates Acetaminophen 10/11/18 10/11/18 10/11/18 08:29 08:42 11:05 WBC RBC Hgb Hct MCV RDW Plt Count Will % (Auto) Will # Seg Neutrophils % Seg Neuts % (Manual) Lymphocytes % (Manual) Monocytes % (Manual) Seg Neutrophils # Seg Neutrophils # Man Lymphocytes # (Manual) Monocytes # (Manual) APTT 24.1 L POC ABG pH POC ABG pCO2 POC ABG pO2 Sodium 147 H Potassium Chloride 113.3 H Carbon Dioxide 21 L BUN Creatinine 1.7 H Glucose 119 H POC Glucose 164 H Lactic Acid Calcium 7.7 L Phosphorus Total Bilirubin AST ALT Total Creatine Kinase CK-MB (CK-2) Troponin T Total Protein Albumin HDL Cholesterol Salicylates Acetaminophen 10/11/18 10/11/18 10/11/18 11:05 11:06 12:30 WBC RBC Hgb Hct MCV RDW Plt Count Will % (Auto) Will # Seg Neutrophils % Seg Neuts % (Manual) Lymphocytes % (Manual) Monocytes % (Manual) Seg Neutrophils # Seg Neutrophils # Man Lymphocytes # (Manual) Monocytes # (Manual) APTT POC ABG pH POC ABG pCO2 POC ABG pO2 Sodium 148 H Potassium Chloride 113.4 H Carbon Dioxide 21 L BUN Creatinine 1.6 H Glucose 119 H POC Glucose 116 H Lactic Acid 3.20 H* Calcium 7.5 L Phosphorus Total Bilirubin AST ALT Total Creatine Kinase CK-MB (CK-2) Troponin T Total Protein Albumin HDL Cholesterol Salicylates Acetaminophen 10/11/18 10/11/18 10/11/18 12:30 13:16 13:25 WBC RBC Hgb Hct MCV RDW Plt Count Will % (Auto) Will # Seg Neutrophils % Seg Neuts % (Manual) Lymphocytes % (Manual) Monocytes % (Manual) Seg Neutrophils # Seg Neutrophils # Man Lymphocytes # (Manual) Monocytes # (Manual) APTT POC ABG pH 7.247 L POC ABG pCO2 48.4 H POC ABG pO2 Sodium Potassium Chloride Carbon Dioxide BUN Creatinine Glucose POC Glucose 112 H Lactic Acid 2.70 H* Calcium Phosphorus Total Bilirubin AST ALT Total Creatine Kinase CK-MB (CK-2) Troponin T Total Protein Albumin HDL Cholesterol Salicylates Acetaminophen 10/11/18 10/11/18 10/11/18 14:41 15:27 16:13 WBC RBC Hgb Hct MCV RDW Plt Count Will % (Auto) Will # Seg Neutrophils % Seg Neuts % (Manual) Lymphocytes % (Manual) Monocytes % (Manual) Seg Neutrophils # Seg Neutrophils # Man Lymphocytes # (Manual) Monocytes # (Manual) APTT POC ABG pH POC ABG pCO2 POC ABG pO2 Sodium Potassium Chloride Carbon Dioxide BUN Creatinine Glucose POC Glucose 127 H 141 H 134 H Lactic Acid Calcium Phosphorus Total Bilirubin AST ALT Total Creatine Kinase CK-MB (CK-2) Troponin T Total Protein Albumin HDL Cholesterol Salicylates Acetaminophen 10/11/18 10/11/18 10/11/18 17:18 18:23 19:38 WBC RBC Hgb Hct MCV RDW Plt Count Will % (Auto) Will # Seg Neutrophils % Seg Neuts % (Manual) Lymphocytes % (Manual) Monocytes % (Manual) Seg Neutrophils # Seg Neutrophils # Man Lymphocytes # (Manual) Monocytes # (Manual) APTT POC ABG pH POC ABG pCO2 POC ABG pO2 Sodium 148 H Potassium Chloride 112.7 H Carbon Dioxide BUN 23 H Creatinine Glucose 143 H POC Glucose 132 H 129 H Lactic Acid Calcium 7.9 L Phosphorus Total Bilirubin AST ALT Total Creatine Kinase CK-MB (CK-2) Troponin T Total Protein Albumin HDL Cholesterol Salicylates Acetaminophen 10/11/18 10/11/18 10/11/18 20:19 20:36 21:01 WBC RBC Hgb Hct MCV RDW Plt Count Will % (Auto) Will # Seg Neutrophils % Seg Neuts % (Manual) Lymphocytes % (Manual) Monocytes % (Manual) Seg Neutrophils # Seg Neutrophils # Man Lymphocytes # (Manual) Monocytes # (Manual) APTT POC ABG pH 7.281 L POC ABG pCO2 POC ABG pO2 Sodium Potassium Chloride Carbon Dioxide BUN Creatinine Glucose POC Glucose 129 H 151 H Lactic Acid Calcium Phosphorus Total Bilirubin AST ALT Total Creatine Kinase CK-MB (CK-2) Troponin T Total Protein Albumin HDL Cholesterol Salicylates Acetaminophen 10/11/18 10/11/18 10/12/18 22:04 23:15 01:18 WBC RBC Hgb Hct MCV RDW Plt Count Will % (Auto) Will # Seg Neutrophils % Seg Neuts % (Manual) Lymphocytes % (Manual) Monocytes % (Manual) Seg Neutrophils # Seg Neutrophils # Man Lymphocytes # (Manual) Monocytes # (Manual) APTT POC ABG pH POC ABG pCO2 POC ABG pO2 Sodium Potassium Chloride Carbon Dioxide BUN Creatinine Glucose POC Glucose 147 H 143 H 158 H Lactic Acid Calcium Phosphorus Total Bilirubin AST ALT Total Creatine Kinase CK-MB (CK-2) Troponin T Total Protein Albumin HDL Cholesterol Salicylates Acetaminophen 10/12/18 10/12/18 10/12/18 02:13 03:18 04:04 WBC RBC Hgb Hct MCV RDW Plt Count Will % (Auto) Will # Seg Neutrophils % Seg Neuts % (Manual) Lymphocytes % (Manual) Monocytes % (Manual) Seg Neutrophils # Seg Neutrophils # Man Lymphocytes # (Manual) Monocytes # (Manual) APTT POC ABG pH POC ABG pCO2 POC ABG pO2 Sodium 147 H Potassium Chloride 111.1 H Carbon Dioxide BUN 30 H Creatinine 2.0 H Glucose 154 H POC Glucose 148 H 142 H Lactic Acid Calcium 8.1 L Phosphorus Total Bilirubin AST 269 H ALT 204 H Total Creatine Kinase 3647 H CK-MB (CK-2) 48.3 H Troponin T 2.230 H* D Total Protein 5.8 L Albumin 2.6 L HDL Cholesterol Salicylates Acetaminophen 10/12/18 10/12/18 10/12/18 04:04 04:08 04:19 WBC 24.4 H RBC Hgb Hct MCV RDW Plt Count Will % (Auto) Will # Seg Neutrophils % Seg Neuts % (Manual) 32.0 L Lymphocytes % (Manual) Monocytes % (Manual) 8.0 H Seg Neutrophils # Seg Neutrophils # Man 7.8 H Lymphocytes # (Manual) Monocytes # (Manual) 2.0 H APTT POC ABG pH 7.317 L POC ABG pCO2 49.3 H POC ABG pO2 Sodium Potassium Chloride Carbon Dioxide BUN Creatinine Glucose POC Glucose 143 H Lactic Acid Calcium Phosphorus Total Bilirubin AST ALT Total Creatine Kinase CK-MB (CK-2) Troponin T Total Protein Albumin HDL Cholesterol Salicylates Acetaminophen 10/12/18 10/12/18 10/12/18 05:29 06:52 08:09 WBC RBC Hgb Hct MCV RDW Plt Count Will % (Auto) Will # Seg Neutrophils % Seg Neuts % (Manual) Lymphocytes % (Manual) Monocytes % (Manual) Seg Neutrophils # Seg Neutrophils # Man Lymphocytes # (Manual) Monocytes # (Manual) APTT POC ABG pH 7.322 L POC ABG pCO2 46.5 H POC ABG pO2 Sodium Potassium Chloride Carbon Dioxide BUN Creatinine Glucose POC Glucose 196 H 226 H Lactic Acid Calcium Phosphorus Total Bilirubin AST ALT Total Creatine Kinase CK-MB (CK-2) Troponin T Total Protein Albumin HDL Cholesterol Salicylates Acetaminophen 10/12/18 10/12/18 10/12/18 08:38 10:03 15:50 WBC RBC Hgb Hct MCV RDW Plt Count Will % (Auto) Will # Seg Neutrophils % Seg Neuts % (Manual) Lymphocytes % (Manual) Monocytes % (Manual) Seg Neutrophils # Seg Neutrophils # Man Lymphocytes # (Manual) Monocytes # (Manual) APTT POC ABG pH POC ABG pCO2 POC ABG pO2 Sodium Potassium Chloride Carbon Dioxide BUN Creatinine Glucose POC Glucose 138 H 148 H 221 H Lactic Acid Calcium Phosphorus Total Bilirubin AST ALT Total Creatine Kinase CK-MB (CK-2) Troponin T Total Protein Albumin HDL Cholesterol Salicylates Acetaminophen 10/12/18 10/12/18 10/12/18 18:39 20:56 21:34 WBC RBC Hgb Hct MCV RDW Plt Count Will % (Auto) Will # Seg Neutrophils % Seg Neuts % (Manual) Lymphocytes % (Manual) Monocytes % (Manual) Seg Neutrophils # Seg Neutrophils # Man Lymphocytes # (Manual) Monocytes # (Manual) APTT POC ABG pH 7.336 L POC ABG pCO2 46.0 H POC ABG pO2 Sodium Potassium Chloride Carbon Dioxide BUN Creatinine Glucose POC Glucose 255 H 260 H Lactic Acid Calcium Phosphorus Total Bilirubin AST ALT Total Creatine Kinase CK-MB (CK-2) Troponin T Total Protein Albumin HDL Cholesterol Salicylates Acetaminophen 10/13/18 10/13/18 10/13/18 02:29 05:09 05:40 WBC 17.0 H RBC Hgb Hct MCV RDW Plt Count Will % (Auto) 9.2 H Will # 1.6 H Seg Neutrophils % 76.2 H Seg Neuts % (Manual) Lymphocytes % (Manual) Monocytes % (Manual) Seg Neutrophils # 12.9 H Seg Neutrophils # Man Lymphocytes # (Manual) Monocytes # (Manual) APTT POC ABG pH POC ABG pCO2 POC ABG pO2 Sodium Potassium Chloride Carbon Dioxide BUN Creatinine Glucose POC Glucose 216 H 249 H Lactic Acid Calcium Phosphorus Total Bilirubin AST ALT Total Creatine Kinase CK-MB (CK-2) Troponin T Total Protein Albumin HDL Cholesterol Salicylates Acetaminophen 10/13/18 10/13/18 10/13/18 05:40 05:40 09:46 WBC RBC Hgb Hct MCV RDW Plt Count Will % (Auto) Will # Seg Neutrophils % Seg Neuts % (Manual) Lymphocytes % (Manual) Monocytes % (Manual) Seg Neutrophils # Seg Neutrophils # Man Lymphocytes # (Manual) Monocytes # (Manual) APTT POC ABG pH POC ABG pCO2 POC ABG pO2 Sodium 146 H Potassium Chloride 109.8 H Carbon Dioxide BUN 35 H Creatinine Glucose 245 H POC Glucose 235 H Lactic Acid Calcium 7.9 L Phosphorus Total Bilirubin AST ALT Total Creatine Kinase CK-MB (CK-2) Troponin T 0.952 H* D Total Protein Albumin HDL Cholesterol Salicylates Acetaminophen 10/13/18 10/13/18 10/13/18 13:58 16:15 17:30 WBC RBC Hgb Hct MCV RDW Plt Count Will % (Auto) Will # Seg Neutrophils % Seg Neuts % (Manual) Lymphocytes % (Manual) Monocytes % (Manual) Seg Neutrophils # Seg Neutrophils # Man Lymphocytes # (Manual) Monocytes # (Manual) APTT POC ABG pH POC ABG pCO2 51.2 H POC ABG pO2 Sodium Potassium Chloride Carbon Dioxide BUN Creatinine Glucose POC Glucose 139 H Lactic Acid Calcium Phosphorus Total Bilirubin AST ALT Total Creatine Kinase CK-MB (CK-2) Troponin T 0.816 H* Total Protein Albumin HDL Cholesterol Salicylates Acetaminophen 10/13/18 10/14/18 10/14/18 21:25 01:49 04:52 WBC RBC Hgb Hct MCV RDW Plt Count Will % (Auto) Will # Seg Neutrophils % Seg Neuts % (Manual) Lymphocytes % (Manual) Monocytes % (Manual) Seg Neutrophils # Seg Neutrophils # Man Lymphocytes # (Manual) Monocytes # (Manual) APTT POC ABG pH POC ABG pCO2 56.0 H POC ABG pO2 Sodium Potassium Chloride Carbon Dioxide BUN Creatinine Glucose POC Glucose 205 H 166 H Lactic Acid Calcium Phosphorus Total Bilirubin AST ALT Total Creatine Kinase CK-MB (CK-2) Troponin T Total Protein Albumin HDL Cholesterol Salicylates Acetaminophen 10/14/18 10/14/18 10/14/18 05:32 09:45 09:45 WBC RBC Hgb 11.4 L Hct 34.5 L MCV RDW Plt Count 139 L Will % (Auto) Will # Seg Neutrophils % Seg Neuts % (Manual) Lymphocytes % (Manual) Monocytes % (Manual) Seg Neutrophils # Seg Neutrophils # Man Lymphocytes # (Manual) Monocytes # (Manual) APTT POC ABG pH POC ABG pCO2 POC ABG pO2 Sodium 148 H Potassium Chloride 107.3 H Carbon Dioxide 34 H D BUN Creatinine 0.7 L D Glucose 191 H POC Glucose 164 H Lactic Acid Calcium 7.3 L Phosphorus Total Bilirubin AST 110 H ALT 91 H Total Creatine Kinase CK-MB (CK-2) Troponin T Total Protein 4.9 L Albumin 2.0 L HDL Cholesterol Salicylates Acetaminophen 10/14/18 10/14/18 10/14/18 10:54 12:20 18:30 WBC RBC Hgb Hct MCV RDW Plt Count Will % (Auto) Will # Seg Neutrophils % Seg Neuts % (Manual) Lymphocytes % (Manual) Monocytes % (Manual) Seg Neutrophils # Seg Neutrophils # Man Lymphocytes # (Manual) Monocytes # (Manual) APTT POC ABG pH POC ABG pCO2 POC ABG pO2 Sodium Potassium Chloride Carbon Dioxide BUN Creatinine Glucose POC Glucose 173 H 158 H 108 H Lactic Acid Calcium Phosphorus Total Bilirubin AST ALT Total Creatine Kinase CK-MB (CK-2) Troponin T Total Protein Albumin HDL Cholesterol Salicylates Acetaminophen 10/14/18 10/15/18 10/15/18 21:54 02:12 04:19 WBC RBC Hgb Hct MCV RDW Plt Count Will % (Auto) Will # Seg Neutrophils % Seg Neuts % (Manual) Lymphocytes % (Manual) Monocytes % (Manual) Seg Neutrophils # Seg Neutrophils # Man Lymphocytes # (Manual) Monocytes # (Manual) APTT POC ABG pH 7.491 H POC ABG pCO2 45.1 H POC ABG pO2 Sodium Potassium Chloride Carbon Dioxide BUN Creatinine Glucose POC Glucose 110 H 164 H Lactic Acid Calcium Phosphorus Total Bilirubin AST ALT Total Creatine Kinase CK-MB (CK-2) Troponin T Total Protein Albumin HDL Cholesterol Salicylates Acetaminophen 10/15/18 10/15/18 10/15/18 04:55 05:43 06:20 WBC RBC Hgb 11.7 L Hct 34.7 L MCV RDW Plt Count Will % (Auto) Will # Seg Neutrophils % Seg Neuts % (Manual) Lymphocytes % (Manual) Monocytes % (Manual) Seg Neutrophils # Seg Neutrophils # Man Lymphocytes # (Manual) Monocytes # (Manual) APTT POC ABG pH POC ABG pCO2 47.3 H POC ABG pO2 78 L Sodium Potassium Chloride Carbon Dioxide BUN Creatinine Glucose POC Glucose 250 H Lactic Acid Calcium Phosphorus Total Bilirubin AST ALT Total Creatine Kinase CK-MB (CK-2) Troponin T Total Protein Albumin HDL Cholesterol Salicylates Acetaminophen 10/15/18 10/15/18 10/15/18 12:00 12:00 12:11 WBC RBC Hgb 11.5 L Hct 34.0 L MCV RDW Plt Count Will % (Auto) Will # Seg Neutrophils % Seg Neuts % (Manual) Lymphocytes % (Manual) Monocytes % (Manual) Seg Neutrophils # Seg Neutrophils # Man Lymphocytes # (Manual) Monocytes # (Manual) APTT POC ABG pH POC ABG pCO2 POC ABG pO2 Sodium 147 H Potassium Chloride 108.5 H Carbon Dioxide BUN Creatinine 0.7 L Glucose 209 H POC Glucose 197 H Lactic Acid Calcium 7.3 L Phosphorus Total Bilirubin AST ALT Total Creatine Kinase CK-MB (CK-2) Troponin T Total Protein Albumin HDL Cholesterol Salicylates Acetaminophen 10/15/18 10/15/18 10/15/18 15:48 18:34 21:29 WBC RBC Hgb Hct MCV RDW Plt Count Will % (Auto) Will # Seg Neutrophils % Seg Neuts % (Manual) Lymphocytes % (Manual) Monocytes % (Manual) Seg Neutrophils # Seg Neutrophils # Man Lymphocytes # (Manual) Monocytes # (Manual) APTT POC ABG pH POC ABG pCO2 POC ABG pO2 Sodium Potassium Chloride Carbon Dioxide BUN Creatinine Glucose POC Glucose 220 H 249 H 209 H Lactic Acid Calcium Phosphorus Total Bilirubin AST ALT Total Creatine Kinase CK-MB (CK-2) Troponin T Total Protein Albumin HDL Cholesterol Salicylates Acetaminophen 10/16/18 10/16/18 10/16/18 02:16 03:50 05:57 WBC RBC Hgb Hct MCV RDW Plt Count Will % (Auto) Will # Seg Neutrophils % Seg Neuts % (Manual) Lymphocytes % (Manual) Monocytes % (Manual) Seg Neutrophils # Seg Neutrophils # Man Lymphocytes # (Manual) Monocytes # (Manual) APTT POC ABG pH POC ABG pCO2 55.8 H POC ABG pO2 Sodium Potassium Chloride Carbon Dioxide BUN Creatinine Glucose POC Glucose 110 H 209 H Lactic Acid Calcium Phosphorus Total Bilirubin AST ALT Total Creatine Kinase CK-MB (CK-2) Troponin T Total Protein Albumin HDL Cholesterol Salicylates Acetaminophen 10/16/18 10/16/18 10/16/18 10:51 12:51 15:01 WBC RBC Hgb Hct MCV RDW Plt Count Will % (Auto) Will # Seg Neutrophils % Seg Neuts % (Manual) Lymphocytes % (Manual) Monocytes % (Manual) Seg Neutrophils # Seg Neutrophils # Man Lymphocytes # (Manual) Monocytes # (Manual) APTT POC ABG pH POC ABG pCO2 48.9 H POC ABG pO2 Sodium Potassium Chloride Carbon Dioxide BUN Creatinine Glucose POC Glucose 198 H 196 H Lactic Acid Calcium Phosphorus Total Bilirubin AST ALT Total Creatine Kinase CK-MB (CK-2) Troponin T Total Protein Albumin HDL Cholesterol Salicylates Acetaminophen 10/16/18 10/16/18 10/17/18 17:34 21:59 02:17 WBC RBC Hgb Hct MCV RDW Plt Count Will % (Auto) Will # Seg Neutrophils % Seg Neuts % (Manual) Lymphocytes % (Manual) Monocytes % (Manual) Seg Neutrophils # Seg Neutrophils # Man Lymphocytes # (Manual) Monocytes # (Manual) APTT POC ABG pH POC ABG pCO2 POC ABG pO2 Sodium Potassium Chloride Carbon Dioxide BUN Creatinine Glucose POC Glucose 179 H 139 H 135 H Lactic Acid Calcium Phosphorus Total Bilirubin AST ALT Total Creatine Kinase CK-MB (CK-2) Troponin T Total Protein Albumin HDL Cholesterol Salicylates Acetaminophen 10/17/18 10/17/18 10/17/18 05:40 05:47 10:18 WBC RBC Hgb 11.3 L Hct 33.2 L MCV RDW Plt Count Will % (Auto) Will # Seg Neutrophils % Seg Neuts % (Manual) Lymphocytes % (Manual) Monocytes % (Manual) Seg Neutrophils # Seg Neutrophils # Man Lymphocytes # (Manual) Monocytes # (Manual) APTT POC ABG pH POC ABG pCO2 POC ABG pO2 Sodium Potassium Chloride Carbon Dioxide BUN Creatinine Glucose POC Glucose 125 H 139 H Lactic Acid Calcium Phosphorus Total Bilirubin AST ALT Total Creatine Kinase CK-MB (CK-2) Troponin T Total Protein Albumin HDL Cholesterol Salicylates Acetaminophen 10/17/18 10/18/18 10/18/18 23:11 08:49 11:31 WBC RBC Hgb Hct MCV RDW Plt Count Will % (Auto) Will # Seg Neutrophils % Seg Neuts % (Manual) Lymphocytes % (Manual) Monocytes % (Manual) Seg Neutrophils # Seg Neutrophils # Man Lymphocytes # (Manual) Monocytes # (Manual) APTT POC ABG pH POC ABG pCO2 POC ABG pO2 Sodium Potassium Chloride Carbon Dioxide BUN Creatinine Glucose POC Glucose 165 H 125 H 182 H Lactic Acid Calcium Phosphorus Total Bilirubin AST ALT Total Creatine Kinase CK-MB (CK-2) Troponin T Total Protein Albumin HDL Cholesterol Salicylates Acetaminophen 10/18/18 10/18/18 10/19/18 16:12 21:02 00:28 WBC RBC Hgb 11.4 L Hct 33.6 L MCV RDW Plt Count Will % (Auto) 14.0 H Will # 1.2 H Seg Neutrophils % Seg Neuts % (Manual) Lymphocytes % (Manual) Monocytes % (Manual) Seg Neutrophils # Seg Neutrophils # Man Lymphocytes # (Manual) Monocytes # (Manual) APTT POC ABG pH POC ABG pCO2 POC ABG pO2 Sodium Potassium Chloride Carbon Dioxide BUN Creatinine Glucose POC Glucose 168 H 324 H Lactic Acid Calcium Phosphorus Total Bilirubin AST ALT Total Creatine Kinase CK-MB (CK-2) Troponin T Total Protein Albumin HDL Cholesterol Salicylates Acetaminophen 10/19/18 10/19/18 10/19/18 04:57 04:57 07:32 WBC RBC Hgb 11.7 L Hct 34.0 L MCV RDW Plt Count Will % (Auto) Will # Seg Neutrophils % Seg Neuts % (Manual) Lymphocytes % (Manual) Monocytes % (Manual) Seg Neutrophils # Seg Neutrophils # Man Lymphocytes # (Manual) Monocytes # (Manual) APTT POC ABG pH POC ABG pCO2 POC ABG pO2 Sodium Potassium 3.5 L Chloride 108.6 H Carbon Dioxide BUN Creatinine 0.6 L Glucose POC Glucose 159 H Lactic Acid Calcium 7.9 L Phosphorus Total Bilirubin AST ALT Total Creatine Kinase CK-MB (CK-2) Troponin T Total Protein Albumin HDL Cholesterol Salicylates Acetaminophen 10/19/18 10/19/18 10/20/18 16:25 20:59 12:04 WBC RBC Hgb Hct MCV RDW Plt Count Will % (Auto) Will # Seg Neutrophils % Seg Neuts % (Manual) Lymphocytes % (Manual) Monocytes % (Manual) Seg Neutrophils # Seg Neutrophils # Man Lymphocytes # (Manual) Monocytes # (Manual) APTT POC ABG pH POC ABG pCO2 POC ABG pO2 Sodium Potassium Chloride Carbon Dioxide BUN Creatinine Glucose POC Glucose 134 H 110 H 338 H Lactic Acid Calcium Phosphorus Total Bilirubin AST ALT Total Creatine Kinase CK-MB (CK-2) Troponin T Total Protein Albumin HDL Cholesterol Salicylates Acetaminophen 10/20/18 10/20/18 10/21/18 17:55 22:07 04:59 WBC RBC Hgb 11.6 L Hct 33.9 L MCV RDW Plt Count Will % (Auto) 9.7 H Will # 0.9 H Seg Neutrophils % 70.7 H Seg Neuts % (Manual) Lymphocytes % (Manual) Monocytes % (Manual) Seg Neutrophils # Seg Neutrophils # Man Lymphocytes # (Manual) Monocytes # (Manual) APTT POC ABG pH POC ABG pCO2 POC ABG pO2 Sodium Potassium Chloride Carbon Dioxide BUN Creatinine Glucose POC Glucose 146 H 164 H Lactic Acid Calcium Phosphorus Total Bilirubin AST ALT Total Creatine Kinase CK-MB (CK-2) Troponin T Total Protein Albumin HDL Cholesterol Salicylates Acetaminophen 10/21/18 10/21/18 10/21/18 04:59 07:52 11:39 WBC RBC Hgb Hct MCV RDW Plt Count Will % (Auto) Will # Seg Neutrophils % Seg Neuts % (Manual) Lymphocytes % (Manual) Monocytes % (Manual) Seg Neutrophils # Seg Neutrophils # Man Lymphocytes # (Manual) Monocytes # (Manual) APTT POC ABG pH POC ABG pCO2 POC ABG pO2 Sodium Potassium 3.5 L Chloride 107.1 H Carbon Dioxide BUN Creatinine 0.5 L Glucose 158 H POC Glucose 142 H 194 H Lactic Acid Calcium 7.5 L Phosphorus Total Bilirubin AST ALT Total Creatine Kinase CK-MB (CK-2) Troponin T Total Protein 5.6 L Albumin 2.0 L HDL Cholesterol Salicylates Acetaminophen 10/21/18 10/21/18 10/22/18 17:05 20:37 05:38 WBC RBC 3.48 L Hgb 10.8 L Hct 31.7 L MCV RDW Plt Count 458 H Will % (Auto) 10.5 H Will # Seg Neutrophils % Seg Neuts % (Manual) Lymphocytes % (Manual) Monocytes % (Manual) Seg Neutrophils # Seg Neutrophils # Man Lymphocytes # (Manual) Monocytes # (Manual) APTT POC ABG pH POC ABG pCO2 POC ABG pO2 Sodium Potassium Chloride Carbon Dioxide BUN Creatinine Glucose POC Glucose 167 H 182 H Lactic Acid Calcium Phosphorus Total Bilirubin AST ALT Total Creatine Kinase CK-MB (CK-2) Troponin T Total Protein Albumin HDL Cholesterol Salicylates Acetaminophen 10/22/18 10/22/18 10/22/18 05:38 07:48 12:08 WBC RBC Hgb Hct MCV RDW Plt Count Will % (Auto) Will # Seg Neutrophils % Seg Neuts % (Manual) Lymphocytes % (Manual) Monocytes % (Manual) Seg Neutrophils # Seg Neutrophils # Man Lymphocytes # (Manual) Monocytes # (Manual) APTT POC ABG pH POC ABG pCO2 POC ABG pO2 Sodium Potassium Chloride Carbon Dioxide BUN Creatinine 0.5 L Glucose 146 H POC Glucose 130 H 167 H Lactic Acid Calcium 7.8 L Phosphorus Total Bilirubin AST 41 H ALT Total Creatine Kinase CK-MB (CK-2) Troponin T Total Protein 5.5 L Albumin 2.1 L HDL Cholesterol Salicylates Acetaminophen 10/22/18 10/22/18 10/23/18 16:45 21:42 04:38 WBC RBC Hgb 11.7 L Hct 34.7 L MCV RDW Plt Count 523 H Will % (Auto) 8.7 H Will # Seg Neutrophils % 71.6 H Seg Neuts % (Manual) Lymphocytes % (Manual) Monocytes % (Manual) Seg Neutrophils # Seg Neutrophils # Man Lymphocytes # (Manual) Monocytes # (Manual) APTT POC ABG pH POC ABG pCO2 POC ABG pO2 Sodium Potassium Chloride Carbon Dioxide BUN Creatinine Glucose POC Glucose 113 H 134 H Lactic Acid Calcium Phosphorus Total Bilirubin AST ALT Total Creatine Kinase CK-MB (CK-2) Troponin T Total Protein Albumin HDL Cholesterol Salicylates Acetaminophen 10/23/18 10/23/18 10/23/18 04:38 07:56 11:15 WBC RBC Hgb Hct MCV RDW Plt Count Will % (Auto) Will # Seg Neutrophils % Seg Neuts % (Manual) Lymphocytes % (Manual) Monocytes % (Manual) Seg Neutrophils # Seg Neutrophils # Man Lymphocytes # (Manual) Monocytes # (Manual) APTT POC ABG pH POC ABG pCO2 POC ABG pO2 Sodium Potassium Chloride Carbon Dioxide BUN 7 L Creatinine 0.5 L Glucose 150 H POC Glucose 123 H 212 H Lactic Acid Calcium 8.0 L Phosphorus Total Bilirubin AST 55 H ALT Total Creatine Kinase CK-MB (CK-2) Troponin T Total Protein 6.2 L Albumin 2.3 L HDL Cholesterol Salicylates Acetaminophen Allied health notes reviewed: nursing
[2018-10-23] MEDS: LOVENOX SUB-Q SCH (21:50)
[2018-10-24] MEDS: PERCOCET 5/325 PO PRN (03:23)
[2018-10-24 06:45] LABS: Basophils % (Auto) 0.4 % (0.0-1.8); Eosinophils # (Auto) 0.1 K/mm3 (0.0-0.4); Hematocrit 33.4 % (35.5-45.6); Hemoglobin 11.2 gm/dl (11.8-15.2); Lymphocytes # (Auto) 1.3 K/mm3 (1.2-5.4); Lymphocytes % (Auto) 11.3 % (13.4-35.0); Mean Corpuscular HGB Conc 34 % (32-34); Mean Corpuscular Volume 92 fl (84-94); Monocytes # (Auto) 0.8 K/mm3 (0.0-0.8); Monocytes % (Auto) 7.1 % (0.0-7.3); Platelet Count 564 K/mm3 (140-440); Red Blood Count 3.64 M/mm3 (3.65-5.03); Red Cell Distribution Width 14.2 % (13.2-15.2)
[2018-10-24 07:08] LABS: Alanine Aminotransferase 40 units/L (7-56); Albumin 2.4 g/dL (3.9-5); BUN/Creatinine Ratio 18; Blood Urea Nitrogen 9 mg/dL (9-20); Hemolysis Index 4
[2018-10-24] MEDS: HumuLIN R SUB-Q SCH ×5 (07:30→22:56)
[2018-10-24] MEDS: DUONEB *Not for PRN Use IH SCH ×3 (08:06→20:24)
--- NOTE | 2018-10-24 11:33 | Progress Note ---
Assessment and Plan Rescheduling angiography with possible intervention secondary to mechanical issues in the [employer] for tomorrow. Subjective Date of service: 10/24/18 Principal diagnosis: Ac hypercapnic hypoxemic Resp failure; Drug OD; AE-COPD; NINOSKA; Seizures Interval history: Patient with bilateral lower extremity PVD with gangrene left greater than right. Attempting to bring the patient down for geography with possible intervention. One of the [employer] room is down therefore the patient will need to be rescheduled tomorrow. Objective - Constitutional Vitals: Vital Signs - 12hr 10/24/18 06:21 Temperature 98.2 F Pulse Rate 89 Respiratory 18 Rate Blood Pressure 104/58 O2 Sat by Pulse 85 Oximetry General appearance: Present: no acute distress - EENT Eyes: EOM intact ENT: hearing intact - Neck Neck: supple, normal ROM - Respiratory Respiratory effort: normal - Breasts Breasts: deferred Extremities: abnormal - Gastrointestinal General gastrointestinal: Present: deferred Rectal Exam: deferred - Genitourinary Male genitourinary: deferred - Psychiatric Psychiatric: cooperative - Labs CBC & Chem 7: 10/24/18 05:56 10/24/18 05:56 Labs: Abnormal lab results 10/23/18 10/23/18 10/24/18 Range/Units 16:06 22:01 05:56 WBC 11.8 H (4.5-11.0) K/mm3 RBC 3.64 L (3.65-5.03) M/mm3 Hgb 11.2 L (11.8-15.2) gm/dl Hct 33.4 L (35.5-45.6) % Plt Count 564 H (140-440) K/mm3 Lymph % (Auto) 11.3 L (13.4-35.0) % Seg Neutrophils % 80.2 H (40.0-70.0) % Seg Neutrophils # 9.4 H (1.8-7.7) K/mm3 Creatinine (0.8-1.5) mg/dL Glucose (75-100) mg/dL POC Glucose 152 H 235 H (70-105) Calcium (8.4-10.2) mg/dL AST (5-40) units/L Total Protein (6.3-8.2) g/dL Albumin (3.9-5) g/dL 10/24/18 10/24/18 Range/Units 05:56 07:52 WBC (4.5-11.0) K/mm3 RBC (3.65-5.03) M/mm3 Hgb (11.8-15.2) gm/dl Hct (35.5-45.6) % Plt Count (140-440) K/mm3 Lymph % (Auto) (13.4-35.0) % Seg Neutrophils % (40.0-70.0) % Seg Neutrophils # (1.8-7.7) K/mm3 Creatinine 0.5 L (0.8-1.5) mg/dL Glucose 175 H (75-100) mg/dL POC Glucose 156 H (70-105) Calcium 8.0 L (8.4-10.2) mg/dL AST 44 H (5-40) units/L Total Protein 6.2 L (6.3-8.2) g/dL Albumin 2.4 L (3.9-5) g/dL Medications & Allergies - Medications Allergies/Adverse Reactions: Allergies No Known Allergies Allergy (Verified 10/31/14 11:20) Home Medications: Home Medications Medication Instructions Recorded Confirmed Last Taken Type Gabapentin [Neurontin] 90 mg PO Q8HR 04/22/15 04/22/15 04/21/15 History ALPRAZolam [Xanax TAB] 1 mg PO TID PRN #30 tablet 03/28/16 Unknown Rx Albuterol Sulfate [Ventolin HFA] 2 puff IH Q4H PRN #1 hfa.aer.ad 03/28/16 Unknown Rx Ciprofloxacin HCl [Ciprofloxacin 500 mg PO Q12HR #30 tab 03/28/16 Unknown Rx TAB] Citalopram [celeXA] 10 mg PO QDAY #30 tablet 03/28/16 Unknown Rx Nicotine [Habitrol] 14 mg TD QDAY #30 patch 03/28/16 Unknown Rx Sitagliptin Phos/Metformin HCl 1 tab PO QDAY #30 tbmp.24hr 03/28/16 Unknown Rx [Janumet XR 100-1,000 mg] oxyCODONE /ACETAMINOPHEN [Percocet 1 tab PO Q6H PRN #60 tablet 03/28/16 Unknown Rx 5/325 mg] Active Medications: Generic Name Dose Route Start Last Admin Trade Name Freq PRN Reason Stop Dose Admin Acetaminophen 650 mg 10/11/18 04:04 10/21/18 22:21 Tylenol PO 650 mg Q4H PRN Administration Pain MILD(1-3)/Fever >100.5/HOLLINS Acetaminophen 650 mg 10/18/18 11:53 Tylenol [place] Q4H PRN Pain, Mild(1-3)/Fever>100.5/HOLLINS Albuterol 2.5 mg 10/19/18 00:54 Proventil IH Q4HRT PRN Shortness Of Breath Albuterol/Ipratropium 1 ampul 10/19/18 08:00 10/24/18 08:06 Duoneb *Not For Prn Use* IH 1 ampul TIDRT ISAAC Administration Alprazolam 1 mg 10/20/18 13:06 10/23/18 20:36 Xanax PO 1 mg TID PRN Administration Anxiety Lipase/Protease/Amylase 1 each 10/18/18 13:[address] 10,500 Unit FEEDTUBE PRN PRN For Clogged Feeding Tube Aspirin 325 mg 10/13/18 10:00 10/23/18 09:09 Aspirin PO 325 mg QDAY ISAAC Administration Citalopram Hydrobromide 10 mg 10/21/18 10:00 10/23/18 09:10 Celexa PO 10 mg QDAY ISAAC Administration Dextrose 0 ml 10/11/18 03:57 10/11/18 10:18 D50w (25gm) Syringe IV 10 ml PRN PRN Administration Hypoglycemia Enoxaparin Sodium 40 mg 10/18/18 22:00 10/23/18 21:50 Lovenox SUB-Q 40 mg QDAY@2200 ISAAC Administration Famotidine 20 mg 10/15/18 10:00 10/23/18 21:50 Pepcid PO 20 mg BID ISAAC Administration Hydromorphone HCl 0.5 mg 10/18/18 15:40 10/23/18 18:39 Dilaudid IV 0.5 mg Q3H PRN Administration Pain , Severe (7-10) Hydrophilic Ointment 1 applic 10/11/18 14:00 Vaseline Lip Therapy TP Q2HR PRN Dry Lips Insulin Human Regular 0 units 10/17/18 11:30 10/23/18 23:21 Humulin R SUB-Q Not Given ACHS [facility] Protocol Metoprolol Tartrate 25 mg 10/18/18 22:00 10/23/18 21:50 Lopressor PO Not Given BID ISAAC Metoprolol Tartrate 2.5 mg 10/18/18 18:51 10/18/18 22:19 Lopressor IV 2.5 mg Q6H PRN Administration Tachyarrhythmias Multi-Ingred Cream/Lotion/Oil/Oint 1 applic 10/11/18 14:00 Artificial Tears Ophth Oint OU Q4HR PRN Dry Eye(s) Ondansetron HCl 4 mg 10/11/18 04:04 Zofran IV Q8H PRN Nausea And Vomiting Oxycodone/Acetaminophen 1 tab 10/18/18 13:45 10/24/18 03:23 Percocet 5/325 PO 1 tab Q6H PRN Administration Pain, Moderate (4-6) Quetiapine Fumarate 200 mg 10/14/18 22:00 10/23/18 21:51 Seroquel PO 200 mg QHS ISAAC Administration Sodium Bicarbonate 325 mg 10/18/18 13:43 Sodium Bicarbonate FEEDTUBE PRN PRN For Clogged Feeding Tube
[2018-10-24] MEDS: DILAUDID IV PRN ×4 (11:48→21:22)
[2018-10-24] MEDS: LOPRESSOR PO SCH ×2 (11:49→21:22)
[2018-10-24] MEDS: ASPIRIN PO SCH (11:49)
[2018-10-24] MEDS: celeXA PO SCH (11:49)
[2018-10-24] MEDS: PEPCID PO SCH ×2 (11:50→21:21)
[2018-10-24] MEDS: XANAX PO PRN ×2 (11:59→16:49)
--- NOTE | 2018-10-24 12:45 | Progress Note ---
Assessment and Plan Assessment and plan: --Bilateral lower extremity PVD with gangrene left greater than right. --Acute thrombus in bilateral lower extremities, 10/13/18 LE arterial doppler Not a candidate for anticoagulation due to recent CVA Peripheral arterial disease/ischemia vascular planning revascularization /surgical intervention tomorrow/Rescheduling secondary to mechanical issues in the [employer]. --Possible acute/subacute right FT CVA Initial CT head, no acute finding, 10/13/18 found to have left-sided weakness MRI brain showed numerous acute/subacute multilobar infarcts involving the cerebrum and cerebellum including Hemorrhagic transformation of the right frontal and biparietal lobes was Not a candidate for tPA, monitor off aspirin per teleneurology QUIQUE ; no thrombus or shunt, Speech recommended pureed diet --Severe sepsis with shock; present on admission Probably due to aspiration pneumonia, completed total 7 days of antibiotics off pressors --LLL pneumonia : completed treatment --Acute respiratory failure with hypoxia and hypercapnia: Requiring intubation, extubated, nebs , supplemental O2 as needed --Hyperglycemia:cont SSI for now, diabetic diet --Acute toxic/metabolic encephalopathy, improved --Seizure; seizure precautions, no new episodes of seizure Ativan when necessary, neurology did not recommend antiepileptic medications --Elevated troponin/NSTEMI type 2 Echocardiogram for further evaluation - Ef 25-30% Cardiology consulted, medical Mx for now, --Acute systolic CHF, Ef 25-30%, anti-failure medications --ARF, due to vasomotor nephropathy, resolved --Hyperkalemia, resolved --Abnormal LFT Probably due to sepsis and chronic hepatitis C virus infection Abdominal US showed no sign of cirrhosis --Severe protein calorie malnutrition; nutrition supplements Dietitian consulted --DVT prophylaxis with heparin and GI prophylaxis with famotidine --Tobacco abuse. Patient with a long smoking history of one pack per day or more since age 9. Patient was counseled on smoking cessation. Disposition: Possible revascularization/surgical intervention on Monday Plan of care is reviewed with the patient and his nurse History Interval history: No new issues overnight. Hospitalist Physical - Constitutional Vitals: Temp Pulse Resp BP Pulse Ox 97.8 F 37 L 22 118/68 97 10/24/18 11:54 10/24/18 11:54 10/24/18 11:54 10/24/18 11:54 10/24/18 11:54 General appearance: Present: no acute distress - EENT Eyes: Present: PERRL, EOM intact ENT: hearing intact, clear oral mucosa, dentition normal - Neck Neck: Present: supple, normal ROM - Respiratory Respiratory effort: normal Respiratory: bilateral: CTA - Cardiovascular Rhythm: regular Heart Sounds: Present: S1 & S2. Absent: gallop, rub - Extremities Extremities: normal color (necrotic toes bilaterally), Full ROM, abnormal (bilateral lower extremity ischemia) - Abdominal General gastrointestinal: soft, non-tender, non-distended, normal bowel sounds - Integumentary Integumentary: Present: clear, warm, dry - Neurologic Neurologic: CNII-XII intact, moves all extremities Results - Labs CBC & Chem 7: 10/24/18 05:56 10/24/18 05:56 Labs: Laboratory Last Values WBC 11.8 K/mm3 (4.5-11.0) H 10/24/18 05:56 RBC 3.64 M/mm3 (3.65-5.03) L 10/24/18 05:56 Hgb 11.2 gm/dl (11.8-15.2) L 10/24/18 05:56 Hct 33.4 % (35.5-45.6) L 10/24/18 05:56 MCV 92 fl (84-94) 10/24/18 05:56 MCH 31 pg (28-32) 10/24/18 05:56 MCHC 34 % (32-34) 10/24/18 05:56 RDW 14.2 % (13.2-15.2) 10/24/18 05:56 Plt Count 564 K/mm3 (140-440) H 10/24/18 05:56 Lymph % (Auto) 11.3 % (13.4-35.0) L 10/24/18 05:56 [place] % (Auto) 7.1 % (0.0-7.3) 10/24/18 05:56 Eos % (Auto) 1.0 % (0.0-4.3) 10/24/18 05:56 Baso % (Auto) 0.4 % (0.0-1.8) 10/24/18 05:56 Lymph # 1.3 K/mm3 (1.2-5.4) 10/24/18 05:56 [place] # 0.8 K/mm3 (0.0-0.8) 10/24/18 05:56 Eos # 0.1 K/mm3 (0.0-0.4) 10/24/18 05:56 Baso # 0.0 K/mm3 (0.0-0.1) 10/24/18 05:56 Add Manual Diff Complete 10/12/18 04:04 Total Counted 100 10/12/18 04:04 Seg Neutrophils % 80.2 % (40.0-70.0) H 10/24/18 05:56 Seg Neuts % (Manual) 32.0 % (40.0-70.0) L 10/12/18 04:04 39.0 % 10/12/18 04:04 19.0 % (13.4-35.0) 10/12/18 04:04 Reactive Lymphs % (Man) 0 % 10/12/18 04:04 8.0 % (0.0-7.3) H 10/12/18 04:04 0 % (0.0-4.3) 10/12/18 04:04 0 % (0.0-1.8) 10/12/18 04:04 2.0 % 10/12/18 04:04 0 % 10/12/18 04:04 0 % 10/12/18 04:04 0 % 10/12/18 04:04 Nucleated RBC % Not Reportable 10/12/18 04:04 Seg Neutrophils # 9.4 K/mm3 (1.8-7.7) H 10/24/18 05:56 Seg Neutrophils # Man 7.8 K/mm3 (1.8-7.7) H 10/12/18 04:04 Band Neutrophils # 9.5 K/mm3 10/12/18 04:04 4.6 K/mm3 (1.2-5.4) 10/12/18 04:04 Abs React Lymphs (Man) 0.0 K/mm3 10/12/18 04:04 2.0 K/mm3 (0.0-0.8) H 10/12/18 04:04 0.0 K/mm3 (0.0-0.4) 10/12/18 04:04 0.0 K/mm3 (0.0-0.1) 10/12/18 04:04 0.5 K/mm3 10/12/18 04:04 0.0 K/mm3 10/12/18 04:04 0.0 K/mm3 10/12/18 04:04 Blast Cells # 0.0 K/mm3 10/12/18 04:04 Pathologist Review 10/11/18 00:16 WBC Morphology Not Reportable 10/12/18 04:04 Hypersegmented Neuts Not Reportable 10/12/18 04:04 Hyposegmented Neuts Not Reportable 10/12/18 04:04 Hypogranular Neuts Not Reportable 10/12/18 04:04 Not Reportable 10/12/18 04:04 Not Reportable 10/12/18 04:04 Not Reportable 10/12/18 04:04 Not Reportable 10/12/18 04:04 Not Reportable 10/12/18 04:04 Not Reportable 10/12/18 04:04 Appears normal 10/12/18 04:04 Not Reportable 10/12/18 04:04 Plt Clumps, EDTA Not Reportable 10/12/18 04:04 Not Reportable 10/12/18 04:04 Not Reportable 10/12/18 04:04 Not Reportable 10/12/18 04:04 Plt Morphology Comment Not Reportable 10/12/18 04:04 RBC Morphology Not Reportable 10/12/18 04:04 Dimorphic RBCs Not Reportable 10/12/18 04:04 Not Reportable 10/12/18 04:04 Not Reportable 10/12/18 04:04 Not Reportable 10/12/18 04:04 1+ 10/12/18 04:04 Not Reportable 10/12/18 04:04 Not Reportable 10/12/18 04:04 Not Reportable 10/12/18 04:04 Not Reportable 10/12/18 04:04 Not Reportable 10/12/18 04:04 Not Reportable 10/12/18 04:04 Not Reportable 10/12/18 04:04 Not Reportable 10/12/18 04:04 Not Reportable 10/12/18 04:04 Not Reportable 10/12/18 04:04 Not Reportable 10/12/18 04:04 Not Reportable 10/12/18 04:04 Not Reportable 10/12/18 04:04 Not Reportable 10/12/18 04:04 Not Reportable 10/12/18 04:04 Acanthocytes (Spur) Not Reportable 10/12/18 04:04 Rouleaux Not Reportable 10/12/18 04:04 Not Reportable 10/12/18 04:04 Not Reportable 10/12/18 04:04 Not Reportable 10/12/18 04:04 Not Reportable 10/12/18 04:04 Hem Pathologist Commnt No 10/12/18 04:04 PT 13.5 Sec. (12.2-14.9) 10/23/18 04:38 INR 0.97 (0.87-1.13) 10/23/18 04:38 APTT 24.1 Sec. (24.2-36.6) L 10/11/18 08:29 Heparin Anti-Xa, Unfract Negative (Negative) 10/15/18 12:00 POC ABG pH 7.393 (7.35-7.45) 10/16/18 12:51 POC ABG pCO2 48.9 (35-45) H 10/16/18 12:51 POC ABG pO2 92 (80-105) 10/16/18 12:51 POC ABG HCO3 29.8 (22-26 mml/L) 10/16/18 12:51 POC ABG Total CO2 31 (23-27mmol/L) 10/16/18 12:51 POC ABG O2 Sat 97 10/16/18 12:51 POC ABG Base Excess 5 ((-2) - (+3)mmol/L) 10/16/18 12:51 35 % 10/16/18 12:51 Sodium 138 mmol/L (137-145) 10/24/18 05:56 Potassium 4.4 mmol/L (3.6-5.0) 10/24/18 05:56 Chloride 102.0 mmol/L (98-107) 10/24/18 05:56 Carbon Dioxide 29 mmol/L (22-30) 10/24/18 05:56 11 mmol/L 10/24/18 05:56 BUN 9 mg/dL (9-20) 10/24/18 05:56 0.5 mg/dL (0.8-1.5) L 10/24/18 05:56 Estimated GFR > 60 ml/min 10/24/18 05:56 18 % 10/24/18 05:56 Glucose 175 mg/dL (75-100) H 10/24/18 05:56 POC Glucose 238 (70-105) H 10/24/18 11:58 Lactic Acid 2.70 mmol/L (0.7-2.0) H* 10/11/18 12:30 Calcium 8.0 mg/dL (8.4-10.2) L 10/24/18 05:56 Phosphorus 2.80 mg/dL (2.5-4.5) 10/21/18 04:59 Magnesium 1.90 mg/dL (1.7-2.3) 10/21/18 04:59 0.30 mg/dL (0.1-1.2) 10/24/18 05:56 AST 44 units/L (5-40) H 10/24/18 05:56 ALT 40 units/L (7-56) 10/24/18 05:56 57 units/L (35-129) 10/24/18 05:56 3647 units/L (55-170) H 10/12/18 04:04 CK-MB (CK-2) 48.3 ng/mL (0.0-4.0) H 10/12/18 04:04 CK-MB (CK-2) Rel Index 1.3 (0-4) 10/12/18 04:04 0.816 ng/mL (0.00-0.029) H* 10/13/18 16:15 6.2 g/dL (6.3-8.2) L 10/24/18 05:56 2.4 g/dL (3.9-5) L 10/24/18 05:56 0.6 % 10/24/18 05:56 Triglycerides 87 mg/dL (2-149) 10/11/18 00:16 Cholesterol 73 mg/dL (50-199) 10/11/18 00:16 51 mg/dL (50-130) 10/11/18 00:16 19 mg/dL (40-59) L 10/11/18 00:16 3.84 % 10/11/18 00:16 See scanned report 10/15/18 12:00 Yellow (Yellow) 10/11/18 01:42 Cloudy (Clear) 10/11/18 01:42 6.0 (5.0-7.0) 10/11/18 01:42 Ur Specific [place] 1.011 (1.003-1.030) 10/11/18 01:42 100 mg/dl mg/dL (Negative) 10/11/18 01:42 >=500 mg/dL (Negative) 10/11/18 01:42 Neg mg/dL (Negative) 10/11/18 01:42 Mod (Negative) 10/11/18 01:42 Neg (Negative) 10/11/18 01:42 Neg (Negative) 10/11/18 01:42 4.0 mg/dL (<2.0) 10/11/18 01:42 Ur Leukocyte Esterase Neg (Negative) 10/11/18 01:42 5.0 /HPF (0.0-6.0) 10/11/18 01:42 2.0 /HPF (0.0-6.0) 10/11/18 01:42 U Epithel Cells (Auto) < 1.0 /HPF (0-13.0) 10/11/18 01:42 Amorphous Crystals 1+ 10/11/18 01:42 Few /HPF 10/11/18 01:42 2+ /HPF (CHEST PAIN COORDINATOR) 10/11/18 01:42 Vancomycin Trough 8.3 ug/mL (5.0-20.0) 10/13/18 05:40 Salicylates < 0.3 mg/dL (2.8-20.0) L 10/11/18 00:16 Presumptive positive 10/11/18 01:42 Presumptive negative 10/11/18 01:42 Acetaminophen < 5.0 ug/mL (10.0-30.0) L 10/11/18 00:16 Ur Barbiturates Screen Presumptive negative 10/11/18 01:42 Ur Phencyclidine Scrn Presumptive negative 10/11/18 01:42 Ur Amphetamines Screen Presumptive positive 10/11/18 01:42 U Benzodiazepines Scrn Presumptive positive 10/11/18 01:42 Presumptive negative 10/11/18 01:42 U Marijuana (THC) Screen Presumptive negative 10/11/18 01:42 Disclamer 10/11/18 01:42 Plasma/Serum Alcohol < 0.01 % (0-0.07) 10/11/18 00:16 Heparin-induced Plt Ab Negative (Negative) 10/15/18 12:00 UF Heparin High Dose 0 % Release 10/15/18 12:00 AURELIO UFH Low Dose 0.1 0 % Release 10/15/18 12:00 AURELIO UFH Low Dose 0.5 0 % Release 10/15/18 12:00 Active Medications - Current Medications Current Medications: Generic Name Dose Route Start Last Admin Trade Name Freq PRN Reason Stop Dose Admin Acetaminophen 650 mg 10/11/18 04:04 10/21/18 22:21 Tylenol PO 650 mg Q4H PRN Administration Pain MILD(1-3)/Fever >100.5/HOLLINS Acetaminophen 650 mg 10/18/18 11:53 Tylenol [place] Q4H PRN Pain, Mild(1-3)/Fever>100.5/HOLLINS Albuterol 2.5 mg 10/19/18 00:54 Proventil IH Q4HRT PRN Shortness Of Breath Albuterol/Ipratropium 1 ampul 10/19/18 08:00 10/24/18 08:06 Duoneb *Not For Prn Use* IH 1 ampul TIDRT ISAAC Administration Alprazolam 1 mg 10/20/18 13:06 10/24/18 11:59 Xanax PO 1 mg TID PRN Administration Anxiety Lipase/Protease/Amylase 1 each 10/18/18 13:[address] 10,500 Unit FEEDTUBE PRN PRN For Clogged Feeding Tube Aspirin 325 mg 10/13/18 10:00 10/24/18 11:49 Aspirin PO 325 mg QDAY ISAAC Administration Citalopram Hydrobromide 10 mg 10/21/18 10:00 10/24/18 11:49 Celexa PO 10 mg QDAY ISAAC Administration Dextrose 0 ml 10/11/18 03:57 10/11/18 10:18 D50w (25gm) Syringe IV 10 ml PRN PRN Administration Hypoglycemia Enoxaparin Sodium 40 mg 10/18/18 22:00 10/23/18 21:50 Lovenox SUB-Q 40 mg QDAY@2200 ISAAC Administration Famotidine 20 mg 10/15/18 10:00 10/24/18 11:50 Pepcid PO 20 mg BID ISAAC Administration Hydromorphone HCl 0.5 mg 10/18/18 15:40 10/24/18 11:48 Dilaudid IV 0.5 mg Q3H PRN Administration Pain , Severe (7-10) Hydrophilic Ointment 1 applic 10/11/18 14:00 Vaseline Lip Therapy TP Q2HR PRN Dry Lips Insulin Human Regular 0 units 10/17/18 11:30 10/23/18 23:21 Humulin R SUB-Q Not Given ACHS [facility] Protocol Metoprolol Tartrate 25 mg 10/18/18 22:00 10/24/18 11:49 Lopressor PO 25 mg BID ISAAC Administration Metoprolol Tartrate 2.5 mg 10/18/18 18:51 10/18/18 22:19 Lopressor IV 2.5 mg Q6H PRN Administration Tachyarrhythmias Multi-Ingred Cream/Lotion/Oil/Oint 1 applic 10/11/18 14:00 Artificial Tears Ophth Oint OU Q4HR PRN Dry Eye(s) Ondansetron HCl 4 mg 10/11/18 04:04 Zofran IV Q8H PRN Nausea And Vomiting Oxycodone/Acetaminophen 1 tab 10/18/18 13:45 10/24/18 03:23 Percocet 5/325 PO 1 tab Q6H PRN Administration Pain, Moderate (4-6) Quetiapine Fumarate 200 mg 10/14/18 22:00 10/23/18 21:51 Seroquel PO 200 mg QHS ISAAC Administration Sodium Bicarbonate 325 mg 10/18/18 13:43 Sodium Bicarbonate FEEDTUBE PRN PRN For Clogged Feeding Tube Nutrition/Malnutrition Assess - Dietary Evaluation Nutrition/Malnutrition Findings: Nutrition Notes Start: 10/11/18 12:39 Freq: Status: Active Protocol: Document 10/24/18 09:19 [facility] (Rec: 10/24/18 09:21 [id number]) Nutrition Notes Initial or Follow up Brief Note Current Diet NPO Subjective/Other Information Pt NPO for scheduled angiography with possible revascularization today. He consumed 50% of meals yesterday. Percent of energy/protein needs met: 56% energy 48% pro Nutrition Intervention Follow-Up By: 10/25/18 Additional Comments F/U: diet advancement and reorder ONS
--- NOTE | 2018-10-24 19:33 | Progress Note ---
Assessment and Plan Patient has necrosis feet both legs. Patient weak and resting on 2 litres O2.O2 saturation 96%.No acute respiratory distress. Patient scheduled for angiography and revascularization By Laura Murray. - Patient Problems (1) Acute respiratory failure Current Visit: Yes Status: Acute Plan to address problem: O2 2 litres via nasal canula. Albuterol/atrovent aerosol treatments q 6 hours. Patient is on S/C Lovenox for DVT prophylaxis. Continue famotidine. (2) Acute CVA (cerebrovascular accident) Current Visit: Yes Status: Acute Plan to address problem: Management as per neurology. (3) Altered mental state Current Visit: Yes Status: Acute Qualifiers: Altered mental status type: unspecified Qualified Code(s): R41.82 - Altered mental status, unspecified Plan to address problem: Management as per primary care. (4) Atrial fibrillation Current Visit: Yes Status: Acute Plan to address problem: Management as per primary care and cardiology. (5) Diabetes mellitus with hyperglycemia Current Visit: Yes Status: Acute Plan to address problem: Management as per primary care. (6) Polysubstance abuse Current Visit: Yes Status: Chronic Plan to address problem: Management as per primary care. (7) Tobacco use Current Visit: Yes Status: Chronic Plan to address problem: Counselled to stop smoking. Subjective Date of service: 10/24/18 Principal diagnosis: Ac hypercapnic hypoxemic Resp failure; Drug OD; AE-COPD; NINOSKA; Seizures Interval history: Patient has necrosis feet both legs. Patient weak and resting on 2 litres O2.O2 saturation 96%.No acute respiratory distress. Patient scheduled for angiography and revascularization By Laura Murray. Objective Vital Signs - 12hr 10/24/18 10/24/18 10/24/18 08:05 08:20 10:00 Temperature Pulse Rate Pulse Rate [ 116 H 118 H Bilateral] Respiratory Rate Respiratory 18 20 Rate [Bilateral ] Blood Pressure O2 Sat by Pulse 91 Oximetry 10/24/18 10/24/18 10/24/18 11:54 15:15 15:30 Temperature 97.8 F Pulse Rate 37 L Pulse Rate [ 122 H 112 H Bilateral] Respiratory 22 Rate Respiratory 18 18 Rate [Bilateral ] Blood Pressure 118/68 O2 Sat by Pulse 97 Oximetry 10/24/18 16:14 Temperature 97.6 F Pulse Rate 88 Pulse Rate [ Bilateral] Respiratory 22 Rate Respiratory Rate [Bilateral ] Blood Pressure 99/58 O2 Sat by Pulse 95 Oximetry Constitutional: no acute distress, alert, other (middle aged but chronically ill looking CM; Atraumatic) Eyes: non-icteric ENT: oropharynx moist, other (mallampati 2) Neck: supple, no lymphadenopathy, no JVD Effort: normal Ascultation: Bilateral: diminished breath sounds, rhonchi Percussion: Bilateral: not dull Cardiovascular: irregular rhythm, other (No R/M) Gastrointestinal: normoactive bowel sounds, soft, non-tender, non-distended Integumentary: other (poor turgor) Extremities: no edema, no ischemia or petechiae, other (cool left leg campbell-down; with digital gangrene of left foot also) Neurologic: normal mental status, pupils equal and round, other (Left hemiparesis, improving) Psychiatric: mood appropriate, affect normal CBC and BMP: 10/24/18 05:56 10/24/18 05:56 ABG, PT/INR, D-dimer: ABG POC ABG pH 7.393 (7.35-7.45) 10/16/18 12:51 POC ABG pCO2 48.9 (35-45) H 10/16/18 12:51 POC ABG pO2 92 (80-105) 10/16/18 12:51 POC ABG HCO3 29.8 (22-26 mml/L) 10/16/18 12:51 POC ABG Total CO2 31 (23-27mmol/L) 10/16/18 12:51 POC ABG O2 Sat 97 10/16/18 12:51 PT/INR, D-dimer PT 13.5 Sec. (12.2-14.9) 10/23/18 04:38 INR 0.97 (0.87-1.13) 10/23/18 04:38 Abnormal lab findings: Abnormal Labs 10/11/18 10/11/18 10/11/18 00:16 00:16 00:16 WBC 20.1 H RBC Hgb Hct MCV 98 H RDW 15.4 H Plt Count Lymph % (Auto) Patrick % (Auto) Patrick # Seg Neutrophils % Seg Neuts % (Manual) Lymphocytes % (Manual) 5.0 L Monocytes % (Manual) 25.0 H Seg Neutrophils # Seg Neutrophils # Man 9.2 H Lymphocytes # (Manual) 1.0 L Monocytes # (Manual) 5.0 H APTT POC ABG pH POC ABG pCO2 POC ABG pO2 Sodium Potassium 5.8 H Chloride Carbon Dioxide 17 L BUN Creatinine 2.2 H Glucose 348 H POC Glucose Lactic Acid 13.70 H* Calcium 7.7 L Phosphorus Total Bilirubin 1.50 H AST 179 H ALT 110 H Total Creatine Kinase 324 H CK-MB (CK-2) Troponin T 0.257 H* Total Protein 5.9 L Albumin 2.9 L HDL Cholesterol 19 L Salicylates Acetaminophen 10/11/18 10/11/18 10/11/18 00:16 00:16 01:21 WBC RBC Hgb Hct MCV RDW Plt Count Lymph % (Auto) Patrick % (Auto) Patrick # Seg Neutrophils % Seg Neuts % (Manual) Lymphocytes % (Manual) Monocytes % (Manual) Seg Neutrophils # Seg Neutrophils # Man Lymphocytes # (Manual) Monocytes # (Manual) APTT POC ABG pH 7.110 L POC ABG pCO2 50.3 H POC ABG pO2 65 L Sodium Potassium Chloride Carbon Dioxide BUN Creatinine Glucose POC Glucose Lactic Acid Calcium Phosphorus Total Bilirubin AST ALT Total Creatine Kinase CK-MB (CK-2) Troponin T Total Protein Albumin HDL Cholesterol Salicylates < 0.3 L Acetaminophen < 5.0 L 10/11/18 10/11/18 10/11/18 01:22 03:27 04:14 WBC RBC Hgb Hct MCV RDW Plt Count Lymph % (Auto) Patrick % (Auto) Patrick # Seg Neutrophils % Seg Neuts % (Manual) Lymphocytes % (Manual) Monocytes % (Manual) Seg Neutrophils # Seg Neutrophils # Man Lymphocytes # (Manual) Monocytes # (Manual) APTT POC ABG pH POC ABG pCO2 POC ABG pO2 Sodium Potassium Chloride Carbon Dioxide BUN Creatinine Glucose POC Glucose Lactic Acid 8.50 H* 4.10 H* Calcium Phosphorus 4.90 H Total Bilirubin AST ALT Total Creatine Kinase CK-MB (CK-2) Troponin T Total Protein Albumin HDL Cholesterol Salicylates Acetaminophen 10/11/18 10/11/18 10/11/18 04:14 04:14 04:14 WBC RBC Hgb Hct MCV RDW Plt Count Lymph % (Auto) Patrick % (Auto) Patrick # Seg Neutrophils % Seg Neuts % (Manual) Lymphocytes % (Manual) Monocytes % (Manual) Seg Neutrophils # Seg Neutrophils # Man Lymphocytes # (Manual) Monocytes # (Manual) APTT POC ABG pH POC ABG pCO2 POC ABG pO2 Sodium Potassium 5.6 H Chloride Carbon Dioxide 19 L BUN Creatinine 1.6 H Glucose 329 H POC Glucose 328 H Lactic Acid Calcium 7.3 L Phosphorus Total Bilirubin AST ALT Total Creatine Kinase CK-MB (CK-2) Troponin T 1.130 H* D Total Protein Albumin HDL Cholesterol Salicylates Acetaminophen 10/11/18 10/11/18 10/11/18 05:10 05:32 05:58 WBC RBC Hgb Hct MCV RDW Plt Count Lymph % (Auto) Patrick % (Auto) Patrick # Seg Neutrophils % Seg Neuts % (Manual) Lymphocytes % (Manual) Monocytes % (Manual) Seg Neutrophils # Seg Neutrophils # Man Lymphocytes # (Manual) Monocytes # (Manual) APTT POC ABG pH 7.259 L POC ABG pCO2 45.6 H POC ABG pO2 Sodium Potassium Chloride 108.6 H Carbon Dioxide 20 L BUN Creatinine 1.8 H Glucose 269 H POC Glucose 273 H Lactic Acid Calcium 7.0 L Phosphorus Total Bilirubin AST ALT Total Creatine Kinase CK-MB (CK-2) Troponin T Total Protein Albumin HDL Cholesterol Salicylates Acetaminophen 10/11/18 10/11/18 10/11/18 05:58 06:39 07:00 WBC RBC Hgb Hct MCV RDW Plt Count Lymph % (Auto) Patrick % (Auto) Patrick # Seg Neutrophils % Seg Neuts % (Manual) Lymphocytes % (Manual) Monocytes % (Manual) Seg Neutrophils # Seg Neutrophils # Man Lymphocytes # (Manual) Monocytes # (Manual) APTT POC ABG pH POC ABG pCO2 POC ABG pO2 Sodium Potassium Chloride Carbon Dioxide BUN Creatinine Glucose POC Glucose 247 H Lactic Acid 3.20 H* 3.30 H* Calcium Phosphorus Total Bilirubin AST ALT Total Creatine Kinase CK-MB (CK-2) Troponin T Total Protein Albumin HDL Cholesterol Salicylates Acetaminophen 10/11/18 10/11/18 10/11/18 07:00 07:30 07:36 WBC RBC Hgb Hct MCV RDW Plt Count Lymph % (Auto) Patrick % (Auto) Patrick # Seg Neutrophils % Seg Neuts % (Manual) Lymphocytes % (Manual) Monocytes % (Manual) Seg Neutrophils # Seg Neutrophils # Man Lymphocytes # (Manual) Monocytes # (Manual) APTT POC ABG pH POC ABG pCO2 POC ABG pO2 Sodium 146 H Potassium Chloride 112.1 H Carbon Dioxide 21 L BUN Creatinine 1.6 H Glucose 218 H POC Glucose Lactic Acid 3.20 H* Calcium 7.0 L Phosphorus Total Bilirubin AST ALT Total Creatine Kinase CK-MB (CK-2) Troponin T 1.020 H* Total Protein Albumin HDL Cholesterol Salicylates Acetaminophen 10/11/18 10/11/18 10/11/18 07:43 08:29 08:29 WBC RBC Hgb 16.2 H Hct 49.9 H D MCV RDW Plt Count Lymph % (Auto) Patrick % (Auto) Patrick # Seg Neutrophils % Seg Neuts % (Manual) Lymphocytes % (Manual) Monocytes % (Manual) Seg Neutrophils # Seg Neutrophils # Man Lymphocytes # (Manual) Monocytes # (Manual) APTT POC ABG pH POC ABG pCO2 POC ABG pO2 Sodium Potassium Chloride Carbon Dioxide BUN Creatinine Glucose POC Glucose 174 H Lactic Acid 3.90 H* Calcium Phosphorus Total Bilirubin AST ALT Total Creatine Kinase CK-MB (CK-2) Troponin T Total Protein Albumin HDL Cholesterol Salicylates Acetaminophen 10/11/18 10/11/18 10/11/18 08:29 08:42 11:05 WBC RBC Hgb Hct MCV RDW Plt Count Lymph % (Auto) Patrick % (Auto) Patrick # Seg Neutrophils % Seg Neuts % (Manual) Lymphocytes % (Manual) Monocytes % (Manual) Seg Neutrophils # Seg Neutrophils # Man Lymphocytes # (Manual) Monocytes # (Manual) APTT 24.1 L POC ABG pH POC ABG pCO2 POC ABG pO2 Sodium 147 H Potassium Chloride 113.3 H Carbon Dioxide 21 L BUN Creatinine 1.7 H Glucose 119 H POC Glucose 164 H Lactic Acid Calcium 7.7 L Phosphorus Total Bilirubin AST ALT Total Creatine Kinase CK-MB (CK-2) Troponin T Total Protein Albumin HDL Cholesterol Salicylates Acetaminophen 10/11/18 10/11/18 10/11/18 11:05 11:06 12:30 WBC RBC Hgb Hct MCV RDW Plt Count Lymph % (Auto) Patrick % (Auto) Patrick # Seg Neutrophils % Seg Neuts % (Manual) Lymphocytes % (Manual) Monocytes % (Manual) Seg Neutrophils # Seg Neutrophils # Man Lymphocytes # (Manual) Monocytes # (Manual) APTT POC ABG pH POC ABG pCO2 POC ABG pO2 Sodium 148 H Potassium Chloride 113.4 H Carbon Dioxide 21 L BUN Creatinine 1.6 H Glucose 119 H POC Glucose 116 H Lactic Acid 3.20 H* Calcium 7.5 L Phosphorus Total Bilirubin AST ALT Total Creatine Kinase CK-MB (CK-2) Troponin T Total Protein Albumin HDL Cholesterol Salicylates Acetaminophen 10/11/18 10/11/18 10/11/18 12:30 13:16 13:25 WBC RBC Hgb Hct MCV RDW Plt Count Lymph % (Auto) Patrick % (Auto) Patrick # Seg Neutrophils % Seg Neuts % (Manual) Lymphocytes % (Manual) Monocytes % (Manual) Seg Neutrophils # Seg Neutrophils # Man Lymphocytes # (Manual) Monocytes # (Manual) APTT POC ABG pH 7.247 L POC ABG pCO2 48.4 H POC ABG pO2 Sodium Potassium Chloride Carbon Dioxide BUN Creatinine Glucose POC Glucose 112 H Lactic Acid 2.70 H* Calcium Phosphorus Total Bilirubin AST ALT Total Creatine Kinase CK-MB (CK-2) Troponin T Total Protein Albumin HDL Cholesterol Salicylates Acetaminophen 10/11/18 10/11/18 10/11/18 14:41 15:27 16:13 WBC RBC Hgb Hct MCV RDW Plt Count Lymph % (Auto) Patrick % (Auto) Patrick # Seg Neutrophils % Seg Neuts % (Manual) Lymphocytes % (Manual) Monocytes % (Manual) Seg Neutrophils # Seg Neutrophils # Man Lymphocytes # (Manual) Monocytes # (Manual) APTT POC ABG pH POC ABG pCO2 POC ABG pO2 Sodium Potassium Chloride Carbon Dioxide BUN Creatinine Glucose POC Glucose 127 H 141 H 134 H Lactic Acid Calcium Phosphorus Total Bilirubin AST ALT Total Creatine Kinase CK-MB (CK-2) Troponin T Total Protein Albumin HDL Cholesterol Salicylates Acetaminophen 10/11/18 10/11/18 10/11/18 17:18 18:23 19:38 WBC RBC Hgb Hct MCV RDW Plt Count Lymph % (Auto) Patrick % (Auto) Patrick # Seg Neutrophils % Seg Neuts % (Manual) Lymphocytes % (Manual) Monocytes % (Manual) Seg Neutrophils # Seg Neutrophils # Man Lymphocytes # (Manual) Monocytes # (Manual) APTT POC ABG pH POC ABG pCO2 POC ABG pO2 Sodium 148 H Potassium Chloride 112.7 H Carbon Dioxide BUN 23 H Creatinine Glucose 143 H POC Glucose 132 H 129 H Lactic Acid Calcium 7.9 L Phosphorus Total Bilirubin AST ALT Total Creatine Kinase CK-MB (CK-2) Troponin T Total Protein Albumin HDL Cholesterol Salicylates Acetaminophen 10/11/18 10/11/1819 20:19 20:36 21:01 WBC RBC Hgb Hct MCV RDW Plt Count Lymph % (Auto) Patrick % (Auto) Patrick # Seg Neutrophils % Seg Neuts % (Manual) Lymphocytes % (Manual) Monocytes % (Manual) Seg Neutrophils # Seg Neutrophils # Man Lymphocytes # (Manual) Monocytes # (Manual) APTT POC ABG pH 7.281 L POC ABG pCO2 POC ABG pO2 Sodium Potassium Chloride Carbon Dioxide BUN Creatinine Glucose POC Glucose 129 H 151 H Lactic Acid Calcium Phosphorus Total Bilirubin AST ALT Total Creatine Kinase CK-MB (CK-2) Troponin T Total Protein Albumin HDL Cholesterol Salicylates Acetaminophen 10/11/18 10/11/18 10/12/18 22:04 23:15 01:18 WBC RBC Hgb Hct MCV RDW Plt Count Lymph % (Auto) Patrick % (Auto) Patrick # Seg Neutrophils % Seg Neuts % (Manual) Lymphocytes % (Manual) Monocytes % (Manual) Seg Neutrophils # Seg Neutrophils # Man Lymphocytes # (Manual) Monocytes # (Manual) APTT POC ABG pH POC ABG pCO2 POC ABG pO2 Sodium Potassium Chloride Carbon Dioxide BUN Creatinine Glucose POC Glucose 147 H 143 H 158 H Lactic Acid Calcium Phosphorus Total Bilirubin AST ALT Total Creatine Kinase CK-MB (CK-2) Troponin T Total Protein Albumin HDL Cholesterol Salicylates Acetaminophen 10/12/18 10/12/18 10/12/18 02:13 03:18 04:04 WBC RBC Hgb Hct MCV RDW Plt Count Lymph % (Auto) Patrick % (Auto) Patrick # Seg Neutrophils % Seg Neuts % (Manual) Lymphocytes % (Manual) Monocytes % (Manual) Seg Neutrophils # Seg Neutrophils # Man Lymphocytes # (Manual) Monocytes # (Manual) APTT POC ABG pH POC ABG pCO2 POC ABG pO2 Sodium 147 H Potassium Chloride 111.1 H Carbon Dioxide BUN 30 H Creatinine 2.0 H Glucose 154 H POC Glucose 148 H 142 H Lactic Acid Calcium 8.1 L Phosphorus Total Bilirubin AST 269 H ALT 204 H Total Creatine Kinase 3647 H CK-MB (CK-2) 48.3 H Troponin T 2.230 H* D Total Protein 5.8 L Albumin 2.6 L HDL Cholesterol Salicylates Acetaminophen 10/12/18 10/12/18 10/12/18 04:04 04:08 04:19 WBC 24.4 H RBC Hgb Hct MCV RDW Plt Count Lymph % (Auto) Patrick % (Auto) Patrick # Seg Neutrophils % Seg Neuts % (Manual) 32.0 L Lymphocytes % (Manual) Monocytes % (Manual) 8.0 H Seg Neutrophils # Seg Neutrophils # Man 7.8 H Lymphocytes # (Manual) Monocytes # (Manual) 2.0 H APTT POC ABG pH 7.317 L POC ABG pCO2 49.3 H POC ABG pO2 Sodium Potassium Chloride Carbon Dioxide BUN Creatinine Glucose POC Glucose 143 H Lactic Acid Calcium Phosphorus Total Bilirubin AST ALT Total Creatine Kinase CK-MB (CK-2) Troponin T Total Protein Albumin HDL Cholesterol Salicylates Acetaminophen 10/12/18 10/12/18 10/12/18 05:29 06:52 08:09 WBC RBC Hgb Hct MCV RDW Plt Count Lymph % (Auto) Patrick % (Auto) Patrick # Seg Neutrophils % Seg Neuts % (Manual) Lymphocytes % (Manual) Monocytes % (Manual) Seg Neutrophils # Seg Neutrophils # Man Lymphocytes # (Manual) Monocytes # (Manual) APTT POC ABG pH 7.322 L POC ABG pCO2 46.5 H POC ABG pO2 Sodium Potassium Chloride Carbon Dioxide BUN Creatinine Glucose POC Glucose 196 H 226 H Lactic Acid Calcium Phosphorus Total Bilirubin AST ALT Total Creatine Kinase CK-MB (CK-2) Troponin T Total Protein Albumin HDL Cholesterol Salicylates Acetaminophen 10/12/18 10/12/18 10/12/18 08:38 10:03 15:50 WBC RBC Hgb Hct MCV RDW Plt Count Lymph % (Auto) Patrick % (Auto) Patrick # Seg Neutrophils % Seg Neuts % (Manual) Lymphocytes % (Manual) Monocytes % (Manual) Seg Neutrophils # Seg Neutrophils # Man Lymphocytes # (Manual) Monocytes # (Manual) APTT POC ABG pH POC ABG pCO2 POC ABG pO2 Sodium Potassium Chloride Carbon Dioxide BUN Creatinine Glucose POC Glucose 138 H 148 H 221 H Lactic Acid Calcium Phosphorus Total Bilirubin AST ALT Total Creatine Kinase CK-MB (CK-2) Troponin T Total Protein Albumin HDL Cholesterol Salicylates Acetaminophen 10/12/18 10/12/18 10/12/18 18:39 20:56 21:34 WBC RBC Hgb Hct MCV RDW Plt Count Lymph % (Auto) Patrick % (Auto) Patrick # Seg Neutrophils % Seg Neuts % (Manual) Lymphocytes % (Manual) Monocytes % (Manual) Seg Neutrophils # Seg Neutrophils # Man Lymphocytes # (Manual) Monocytes # (Manual) APTT POC ABG pH 7.336 L POC ABG pCO2 46.0 H POC ABG pO2 Sodium Potassium Chloride Carbon Dioxide BUN Creatinine Glucose POC Glucose 255 H 260 H Lactic Acid Calcium Phosphorus Total Bilirubin AST ALT Total Creatine Kinase CK-MB (CK-2) Troponin T Total Protein Albumin HDL Cholesterol Salicylates Acetaminophen 10/13/18 10/13/18 10/13/18 02:29 05:09 05:40 WBC 17.0 H RBC Hgb Hct MCV RDW Plt Count Lymph % (Auto) Patrick % (Auto) 9.2 H Patrick # 1.6 H Seg Neutrophils % 76.2 H Seg Neuts % (Manual) Lymphocytes % (Manual) Monocytes % (Manual) Seg Neutrophils # 12.9 H Seg Neutrophils # Man Lymphocytes # (Manual) Monocytes # (Manual) APTT POC ABG pH POC ABG pCO2 POC ABG pO2 Sodium Potassium Chloride Carbon Dioxide BUN Creatinine Glucose POC Glucose 216 H 249 H Lactic Acid Calcium Phosphorus Total Bilirubin AST ALT Total Creatine Kinase CK-MB (CK-2) Troponin T Total Protein Albumin HDL Cholesterol Salicylates Acetaminophen 10/13/18 10/13/18 10/13/18 05:40 05:40 09:46 WBC RBC Hgb Hct MCV RDW Plt Count Lymph % (Auto) Patrick % (Auto) Patrick # Seg Neutrophils % Seg Neuts % (Manual) Lymphocytes % (Manual) Monocytes % (Manual) Seg Neutrophils # Seg Neutrophils # Man Lymphocytes # (Manual) Monocytes # (Manual) APTT POC ABG pH POC ABG pCO2 POC ABG pO2 Sodium 146 H Potassium Chloride 109.8 H Carbon Dioxide BUN 35 H Creatinine Glucose 245 H POC Glucose 235 H Lactic Acid Calcium 7.9 L Phosphorus Total Bilirubin AST ALT Total Creatine Kinase CK-MB (CK-2) Troponin T 0.952 H* D Total Protein Albumin HDL Cholesterol Salicylates Acetaminophen 10/13/18 10/13/18 10/13/18 13:58 16:15 17:30 WBC RBC Hgb Hct MCV RDW Plt Count Lymph % (Auto) Patrick % (Auto) Patrick # Seg Neutrophils % Seg Neuts % (Manual) Lymphocytes % (Manual) Monocytes % (Manual) Seg Neutrophils # Seg Neutrophils # Man Lymphocytes # (Manual) Monocytes # (Manual) APTT POC ABG pH POC ABG pCO2 51.2 H POC ABG pO2 Sodium Potassium Chloride Carbon Dioxide BUN Creatinine Glucose POC Glucose 139 H Lactic Acid Calcium Phosphorus Total Bilirubin AST ALT Total Creatine Kinase CK-MB (CK-2) Troponin T 0.816 H* Total Protein Albumin HDL Cholesterol Salicylates Acetaminophen 10/13/18 10/14/18 10/14/18 21:25 01:49 04:52 WBC RBC Hgb Hct MCV RDW Plt Count Lymph % (Auto) Patrick % (Auto) Patrick # Seg Neutrophils % Seg Neuts % (Manual) Lymphocytes % (Manual) Monocytes % (Manual) Seg Neutrophils # Seg Neutrophils # Man Lymphocytes # (Manual) Monocytes # (Manual) APTT POC ABG pH POC ABG pCO2 56.0 H POC ABG pO2 Sodium Potassium Chloride Carbon Dioxide BUN Creatinine Glucose POC Glucose 205 H 166 H Lactic Acid Calcium Phosphorus Total Bilirubin AST ALT Total Creatine Kinase CK-MB (CK-2) Troponin T Total Protein Albumin HDL Cholesterol Salicylates Acetaminophen 10/14/18 10/14/18 10/14/18 05:32 09:45 09:45 WBC RBC Hgb 11.4 L Hct 34.5 L MCV RDW Plt Count 139 L Lymph % (Auto) Patrick % (Auto) Patrick # Seg Neutrophils % Seg Neuts % (Manual) Lymphocytes % (Manual) Monocytes % (Manual) Seg Neutrophils # Seg Neutrophils # Man Lymphocytes # (Manual) Monocytes # (Manual) APTT POC ABG pH POC ABG pCO2 POC ABG pO2 Sodium 148 H Potassium Chloride 107.3 H Carbon Dioxide 34 H D BUN Creatinine 0.7 L D Glucose 191 H POC Glucose 164 H Lactic Acid Calcium 7.3 L Phosphorus Total Bilirubin AST 110 H ALT 91 H Total Creatine Kinase CK-MB (CK-2) Troponin T Total Protein 4.9 L Albumin 2.0 L HDL Cholesterol Salicylates Acetaminophen 10/14/18 10/14/18 10/14/18 10:54 12:20 18:30 WBC RBC Hgb Hct MCV RDW Plt Count Lymph % (Auto) Patrick % (Auto) Patrick # Seg Neutrophils % Seg Neuts % (Manual) Lymphocytes % (Manual) Monocytes % (Manual) Seg Neutrophils # Seg Neutrophils # Man Lymphocytes # (Manual) Monocytes # (Manual) APTT POC ABG pH POC ABG pCO2 POC ABG pO2 Sodium Potassium Chloride Carbon Dioxide BUN Creatinine Glucose POC Glucose 173 H 158 H 108 H Lactic Acid Calcium Phosphorus Total Bilirubin AST ALT Total Creatine Kinase CK-MB (CK-2) Troponin T Total Protein Albumin HDL Cholesterol Salicylates Acetaminophen 10/14/18 10/15/18 10/15/18 21:54 02:12 04:19 WBC RBC Hgb Hct MCV RDW Plt Count Lymph % (Auto) Patrick % (Auto) Patrick # Seg Neutrophils % Seg Neuts % (Manual) Lymphocytes % (Manual) Monocytes % (Manual) Seg Neutrophils # Seg Neutrophils # Man Lymphocytes # (Manual) Monocytes # (Manual) APTT POC ABG pH 7.491 H POC ABG pCO2 45.1 H POC ABG pO2 Sodium Potassium Chloride Carbon Dioxide BUN Creatinine Glucose POC Glucose 110 H 164 H Lactic Acid Calcium Phosphorus Total Bilirubin AST ALT Total Creatine Kinase CK-MB (CK-2) Troponin T Total Protein Albumin HDL Cholesterol Salicylates Acetaminophen 10/15/18 10/15/18 10/15/18 04:55 05:43 06:20 WBC RBC Hgb 11.7 L Hct 34.7 L MCV RDW Plt Count Lymph % (Auto) Patrick % (Auto) Patrick # Seg Neutrophils % Seg Neuts % (Manual) Lymphocytes % (Manual) Monocytes % (Manual) Seg Neutrophils # Seg Neutrophils # Man Lymphocytes # (Manual) Monocytes # (Manual) APTT POC ABG pH POC ABG pCO2 47.3 H POC ABG pO2 78 L Sodium Potassium Chloride Carbon Dioxide BUN Creatinine Glucose POC Glucose 250 H Lactic Acid Calcium Phosphorus Total Bilirubin AST ALT Total Creatine Kinase CK-MB (CK-2) Troponin T Total Protein Albumin HDL Cholesterol Salicylates Acetaminophen 10/15/18 10/15/18 10/15/18 12:00 12:00 12:11 WBC RBC Hgb 11.5 L Hct 34.0 L MCV RDW Plt Count Lymph % (Auto) Patrick % (Auto) Patrick # Seg Neutrophils % Seg Neuts % (Manual) Lymphocytes % (Manual) Monocytes % (Manual) Seg Neutrophils # Seg Neutrophils # Man Lymphocytes # (Manual) Monocytes # (Manual) APTT POC ABG pH POC ABG pCO2 POC ABG pO2 Sodium 147 H Potassium Chloride 108.5 H Carbon Dioxide BUN Creatinine 0.7 L Glucose 209 H POC Glucose 197 H Lactic Acid Calcium 7.3 L Phosphorus Total Bilirubin AST ALT Total Creatine Kinase CK-MB (CK-2) Troponin T Total Protein Albumin HDL Cholesterol Salicylates Acetaminophen 10/15/18 10/15/18 10/15/18 15:48 18:34 21:29 WBC RBC Hgb Hct MCV RDW Plt Count Lymph % (Auto) Patrick % (Auto) Patrick # Seg Neutrophils % Seg Neuts % (Manual) Lymphocytes % (Manual) Monocytes % (Manual) Seg Neutrophils # Seg Neutrophils # Man Lymphocytes # (Manual) Monocytes # (Manual) APTT POC ABG pH POC ABG pCO2 POC ABG pO2 Sodium Potassium Chloride Carbon Dioxide BUN Creatinine Glucose POC Glucose 220 H 249 H 209 H Lactic Acid Calcium Phosphorus Total Bilirubin AST ALT Total Creatine Kinase CK-MB (CK-2) Troponin T Total Protein Albumin HDL Cholesterol Salicylates Acetaminophen 10/16/18 10/16/18 10/16/18 02:16 03:50 05:57 WBC RBC Hgb Hct MCV RDW Plt Count Lymph % (Auto) Patrick % (Auto) Patrick # Seg Neutrophils % Seg Neuts % (Manual) Lymphocytes % (Manual) Monocytes % (Manual) Seg Neutrophils # Seg Neutrophils # Man Lymphocytes # (Manual) Monocytes # (Manual) APTT POC ABG pH POC ABG pCO2 55.8 H POC ABG pO2 Sodium Potassium Chloride Carbon Dioxide BUN Creatinine Glucose POC Glucose 110 H 209 H Lactic Acid Calcium Phosphorus Total Bilirubin AST ALT Total Creatine Kinase CK-MB (CK-2) Troponin T Total Protein Albumin HDL Cholesterol Salicylates Acetaminophen 10/16/18 10/16/18 10/16/18 10:51 12:51 15:01 WBC RBC Hgb Hct MCV RDW Plt Count Lymph % (Auto) Patrick % (Auto) Patrick # Seg Neutrophils % Seg Neuts % (Manual) Lymphocytes % (Manual) Monocytes % (Manual) Seg Neutrophils # Seg Neutrophils # Man Lymphocytes # (Manual) Monocytes # (Manual) APTT POC ABG pH POC ABG pCO2 48.9 H POC ABG pO2 Sodium Potassium Chloride Carbon Dioxide BUN Creatinine Glucose POC Glucose 198 H 196 H Lactic Acid Calcium Phosphorus Total Bilirubin AST ALT Total Creatine Kinase CK-MB (CK-2) Troponin T Total Protein Albumin HDL Cholesterol Salicylates Acetaminophen 10/16/18 10/16/18 10/17/18 17:34 21:59 02:17 WBC RBC Hgb Hct MCV RDW Plt Count Lymph % (Auto) Patrick % (Auto) Patrick # Seg Neutrophils % Seg Neuts % (Manual) Lymphocytes % (Manual) Monocytes % (Manual) Seg Neutrophils # Seg Neutrophils # Man Lymphocytes # (Manual) Monocytes # (Manual) APTT POC ABG pH POC ABG pCO2 POC ABG pO2 Sodium Potassium Chloride Carbon Dioxide BUN Creatinine Glucose POC Glucose 179 H 139 H 135 H Lactic Acid Calcium Phosphorus Total Bilirubin AST ALT Total Creatine Kinase CK-MB (CK-2) Troponin T Total Protein Albumin HDL Cholesterol Salicylates Acetaminophen 10/17/18 10/17/18 10/17/18 05:40 05:47 10:18 WBC RBC Hgb 11.3 L Hct 33.2 L MCV RDW Plt Count Lymph % (Auto) Patrick % (Auto) Patrick # Seg Neutrophils % Seg Neuts % (Manual) Lymphocytes % (Manual) Monocytes % (Manual) Seg Neutrophils # Seg Neutrophils # Man Lymphocytes # (Manual) Monocytes # (Manual) APTT POC ABG pH POC ABG pCO2 POC ABG pO2 Sodium Potassium Chloride Carbon Dioxide BUN Creatinine Glucose POC Glucose 125 H 139 H Lactic Acid Calcium Phosphorus Total Bilirubin AST ALT Total Creatine Kinase CK-MB (CK-2) Troponin T Total Protein Albumin HDL Cholesterol Salicylates Acetaminophen 10/17/18 10/18/18 10/18/18 23:11 08:49 11:31 WBC RBC Hgb Hct MCV RDW Plt Count Lymph % (Auto) Patrick % (Auto) Patrick # Seg Neutrophils % Seg Neuts % (Manual) Lymphocytes % (Manual) Monocytes % (Manual) Seg Neutrophils # Seg Neutrophils # Man Lymphocytes # (Manual) Monocytes # (Manual) APTT POC ABG pH POC ABG pCO2 POC ABG pO2 Sodium Potassium Chloride Carbon Dioxide BUN Creatinine Glucose POC Glucose 165 H 125 H 182 H Lactic Acid Calcium Phosphorus Total Bilirubin AST ALT Total Creatine Kinase CK-MB (CK-2) Troponin T Total Protein Albumin HDL Cholesterol Salicylates Acetaminophen 10/18/18 10/18/18 10/19/18 16:12 21:02 00:28 WBC RBC Hgb 11.4 L Hct 33.6 L MCV RDW Plt Count Lymph % (Auto) Patrick % (Auto) 14.0 H Patrick # 1.2 H Seg Neutrophils % Seg Neuts % (Manual) Lymphocytes % (Manual) Monocytes % (Manual) Seg Neutrophils # Seg Neutrophils # Man Lymphocytes # (Manual) Monocytes # (Manual) APTT POC ABG pH POC ABG pCO2 POC ABG pO2 Sodium Potassium Chloride Carbon Dioxide BUN Creatinine Glucose POC Glucose 168 H 324 H Lactic Acid Calcium Phosphorus Total Bilirubin AST ALT Total Creatine Kinase CK-MB (CK-2) Troponin T Total Protein Albumin HDL Cholesterol Salicylates Acetaminophen 10/19/18 10/19/18 10/19/18 04:57 04:57 07:32 WBC RBC Hgb 11.7 L Hct 34.0 L MCV RDW Plt Count Lymph % (Auto) Patrick % (Auto) Patrick # Seg Neutrophils % Seg Neuts % (Manual) Lymphocytes % (Manual) Monocytes % (Manual) Seg Neutrophils # Seg Neutrophils # Man Lymphocytes # (Manual) Monocytes # (Manual) APTT POC ABG pH POC ABG pCO2 POC ABG pO2 Sodium Potassium 3.5 L Chloride 108.6 H Carbon Dioxide BUN Creatinine 0.6 L Glucose POC Glucose 159 H Lactic Acid Calcium 7.9 L Phosphorus Total Bilirubin AST ALT Total Creatine Kinase CK-MB (CK-2) Troponin T Total Protein Albumin HDL Cholesterol Salicylates Acetaminophen 10/19/18 10/19/18 10/20/18 16:25 20:59 12:04 WBC RBC Hgb Hct MCV RDW Plt Count Lymph % (Auto) Patrick % (Auto) Patrick # Seg Neutrophils % Seg Neuts % (Manual) Lymphocytes % (Manual) Monocytes % (Manual) Seg Neutrophils # Seg Neutrophils # Man Lymphocytes # (Manual) Monocytes # (Manual) APTT POC ABG pH POC ABG pCO2 POC ABG pO2 Sodium Potassium Chloride Carbon Dioxide BUN Creatinine Glucose POC Glucose 134 H 110 H 338 H Lactic Acid Calcium Phosphorus Total Bilirubin AST ALT Total Creatine Kinase CK-MB (CK-2) Troponin T Total Protein Albumin HDL Cholesterol Salicylates Acetaminophen 10/20/18 10/20/18 10/21/18 17:55 22:07 04:59 WBC RBC Hgb 11.6 L Hct 33.9 L MCV RDW Plt Count Lymph % (Auto) Patrick % (Auto) 9.7 H Patrick # 0.9 H Seg Neutrophils % 70.7 H Seg Neuts % (Manual) Lymphocytes % (Manual) Monocytes % (Manual) Seg Neutrophils # Seg Neutrophils # Man Lymphocytes # (Manual) Monocytes # (Manual) APTT POC ABG pH POC ABG pCO2 POC ABG pO2 Sodium Potassium Chloride Carbon Dioxide BUN Creatinine Glucose POC Glucose 146 H 164 H Lactic Acid Calcium Phosphorus Total Bilirubin AST ALT Total Creatine Kinase CK-MB (CK-2) Troponin T Total Protein Albumin HDL Cholesterol Salicylates Acetaminophen 10/21/18 10/21/18 10/21/18 04:59 07:52 11:39 WBC RBC Hgb Hct MCV RDW Plt Count Lymph % (Auto) Patrick % (Auto) Patrick # Seg Neutrophils % Seg Neuts % (Manual) Lymphocytes % (Manual) Monocytes % (Manual) Seg Neutrophils # Seg Neutrophils # Man Lymphocytes # (Manual) Monocytes # (Manual) APTT POC ABG pH POC ABG pCO2 POC ABG pO2 Sodium Potassium 3.5 L Chloride 107.1 H Carbon Dioxide BUN Creatinine 0.5 L Glucose 158 H POC Glucose 142 H 194 H Lactic Acid Calcium 7.5 L Phosphorus Total Bilirubin AST ALT Total Creatine Kinase CK-MB (CK-2) Troponin T Total Protein 5.6 L Albumin 2.0 L HDL Cholesterol Salicylates Acetaminophen 10/21/18 10/21/18 10/22/18 17:05 20:37 05:38 WBC RBC 3.48 L Hgb 10.8 L Hct 31.7 L MCV RDW Plt Count 458 H Lymph % (Auto) Patrick % (Auto) 10.5 H Patrick # Seg Neutrophils % Seg Neuts % (Manual) Lymphocytes % (Manual) Monocytes % (Manual) Seg Neutrophils # Seg Neutrophils # Man Lymphocytes # (Manual) Monocytes # (Manual) APTT POC ABG pH POC ABG pCO2 POC ABG pO2 Sodium Potassium Chloride Carbon Dioxide BUN Creatinine Glucose POC Glucose 167 H 182 H Lactic Acid Calcium Phosphorus Total Bilirubin AST ALT Total Creatine Kinase CK-MB (CK-2) Troponin T Total Protein Albumin HDL Cholesterol Salicylates Acetaminophen 10/22/18 10/22/18 10/22/18 05:38 07:48 12:08 WBC RBC Hgb Hct MCV RDW Plt Count Lymph % (Auto) Patrick % (Auto) Patrick # Seg Neutrophils % Seg Neuts % (Manual) Lymphocytes % (Manual) Monocytes % (Manual) Seg Neutrophils # Seg Neutrophils # Man Lymphocytes # (Manual) Monocytes # (Manual) APTT POC ABG pH POC ABG pCO2 POC ABG pO2 Sodium Potassium Chloride Carbon Dioxide BUN Creatinine 0.5 L Glucose 146 H POC Glucose 130 H 167 H Lactic Acid Calcium 7.8 L Phosphorus Total Bilirubin AST 41 H ALT Total Creatine Kinase CK-MB (CK-2) Troponin T Total Protein 5.5 L Albumin 2.1 L HDL Cholesterol Salicylates Acetaminophen 10/22/18 10/22/18 10/23/18 16:45 21:42 04:38 WBC RBC Hgb 11.7 L Hct 34.7 L MCV RDW Plt Count 523 H Lymph % (Auto) Patrick % (Auto) 8.7 H Patrick # Seg Neutrophils % 71.6 H Seg Neuts % (Manual) Lymphocytes % (Manual) Monocytes % (Manual) Seg Neutrophils # Seg Neutrophils # Man Lymphocytes # (Manual) Monocytes # (Manual) APTT POC ABG pH POC ABG pCO2 POC ABG pO2 Sodium Potassium Chloride Carbon Dioxide BUN Creatinine Glucose POC Glucose 113 H 134 H Lactic Acid Calcium Phosphorus Total Bilirubin AST ALT Total Creatine Kinase CK-MB (CK-2) Troponin T Total Protein Albumin HDL Cholesterol Salicylates Acetaminophen 10/23/18 10/23/18 10/23/18 04:38 07:56 11:15 WBC RBC Hgb Hct MCV RDW Plt Count Lymph % (Auto) Patrick % (Auto) Patrick # Seg Neutrophils % Seg Neuts % (Manual) Lymphocytes % (Manual) Monocytes % (Manual) Seg Neutrophils # Seg Neutrophils # Man Lymphocytes # (Manual) Monocytes # (Manual) APTT POC ABG pH POC ABG pCO2 POC ABG pO2 Sodium Potassium Chloride Carbon Dioxide BUN 7 L Creatinine 0.5 L Glucose 150 H POC Glucose 123 H 212 H Lactic Acid Calcium 8.0 L Phosphorus Total Bilirubin AST 55 H ALT Total Creatine Kinase CK-MB (CK-2) Troponin T Total Protein 6.2 L Albumin 2.3 L HDL Cholesterol Salicylates Acetaminophen 10/23/18 10/23/18 10/24/18 16:06 22:01 05:56 WBC 11.8 H RBC 3.64 L Hgb 11.2 L Hct 33.4 L MCV RDW Plt Count 564 H Lymph % (Auto) 11.3 L Patrick % (Auto) Patrick # Seg Neutrophils % 80.2 H Seg Neuts % (Manual) Lymphocytes % (Manual) Monocytes % (Manual) Seg Neutrophils # 9.4 H Seg Neutrophils # Man Lymphocytes # (Manual) Monocytes # (Manual) APTT POC ABG pH POC ABG pCO2 POC ABG pO2 Sodium Potassium Chloride Carbon Dioxide BUN Creatinine Glucose POC Glucose 152 H 235 H Lactic Acid Calcium Phosphorus Total Bilirubin AST ALT Total Creatine Kinase CK-MB (CK-2) Troponin T Total Protein Albumin HDL Cholesterol Salicylates Acetaminophen 10/24/18 10/24/18 10/24/18 05:56 07:52 11:58 WBC RBC Hgb Hct MCV RDW Plt Count Lymph % (Auto) Patrick % (Auto) Patrick # Seg Neutrophils % Seg Neuts % (Manual) Lymphocytes % (Manual) Monocytes % (Manual) Seg Neutrophils # Seg Neutrophils # Man Lymphocytes # (Manual) Monocytes # (Manual) APTT POC ABG pH POC ABG pCO2 POC ABG pO2 Sodium Potassium Chloride Carbon Dioxide BUN Creatinine 0.5 L Glucose 175 H POC Glucose 156 H 238 H Lactic Acid Calcium 8.0 L Phosphorus Total Bilirubin AST 44 H ALT Total Creatine Kinase CK-MB (CK-2) Troponin T Total Protein 6.2 L Albumin 2.4 L HDL Cholesterol Salicylates Acetaminophen 10/24/18 16:20 WBC RBC Hgb Hct MCV RDW Plt Count Lymph % (Auto) Patrick % (Auto) Patrick # Seg Neutrophils % Seg Neuts % (Manual) Lymphocytes % (Manual) Monocytes % (Manual) Seg Neutrophils # Seg Neutrophils # Man Lymphocytes # (Manual) Monocytes # (Manual) APTT POC ABG pH POC ABG pCO2 POC ABG pO2 Sodium Potassium Chloride Carbon Dioxide BUN Creatinine Glucose POC Glucose 60 L Lactic Acid Calcium Phosphorus Total Bilirubin AST ALT Total Creatine Kinase CK-MB (CK-2) Troponin T Total Protein Albumin HDL Cholesterol Salicylates Acetaminophen Allied health notes reviewed: nursing
[2018-10-24] MEDS: LOVENOX SUB-Q SCH (21:21)
[2018-10-25] MEDS: DILAUDID IV PRN ×4 (02:57→22:01)
[2018-10-25] MEDS: PERCOCET 5/325 PO PRN ×2 (08:43→15:18)
[2018-10-25] MEDS: DUONEB *Not for PRN Use IH SCH ×3 (08:47→20:17)
[2018-10-25] MEDS: HumuLIN R SUB-Q SCH ×3 (08:48→17:05)
--- NOTE | 2018-10-25 12:19 | Progress Note ---
Assessment and Plan Assessment and plan: --Bilateral lower extremity PVD with gangrene left greater than right. --Acute thrombus in bilateral lower extremities, 10/13/18 LE arterial doppler Not a candidate for anticoagulation due to recent CVA Peripheral arterial disease/ischemia vascular planning revascularization /surgical intervention today/Rescheduled secondary to mechanical issues in the [employer]. --Possible acute/subacute right FT CVA Initial CT head, no acute finding, 10/13/18 found to have left-sided weakness MRI brain showed numerous acute/subacute multilobar infarcts involving the cerebrum and cerebellum including Hemorrhagic transformation of the right frontal and biparietal lobes was Not a candidate for tPA, monitor off aspirin per teleneurology QUIQUE ; no thrombus or shunt, Speech recommended pureed diet --Severe sepsis with shock; present on admission Probably due to aspiration pneumonia, completed total 7 days of antibiotics off pressors --LLL pneumonia : completed treatment --Acute respiratory failure with hypoxia and hypercapnia: Requiring intubation, extubated, nebs , supplemental O2 as needed --Hyperglycemia:cont SSI for now, diabetic diet --Acute toxic/metabolic encephalopathy, improved --Seizure; seizure precautions, no new episodes of seizure Ativan when necessary, neurology did not recommend antiepileptic medications --Elevated troponin/NSTEMI type 2 Echocardiogram for further evaluation - Ef 25-30% Cardiology consulted, medical Mx for now, --Acute systolic CHF, Ef 25-30%, anti-failure medications --ARF, due to vasomotor nephropathy, resolved --Hyperkalemia, resolved --Abnormal LFT Probably due to sepsis and chronic hepatitis C virus infection Abdominal US showed no sign of cirrhosis --Severe protein calorie malnutrition; nutrition supplements Dietitian consulted --DVT prophylaxis with heparin and GI prophylaxis with famotidine --Tobacco abuse. Patient with a long smoking history of one pack per day or more since age 9. Patient was counseled on smoking cessation. Disposition: Possible revascularization/surgical intervention on Monday Plan of care is reviewed with the patient and his nurse History Interval history: No new issues overnight. Hospitalist Physical - Constitutional Vitals: Temp Pulse Resp BP Pulse Ox 98.1 F 101 H 20 109/64 93 10/25/18 05:03 10/25/18 08:57 10/25/18 08:57 10/25/18 07:03 10/25/18 08:47 General appearance: Present: no acute distress - EENT Eyes: Present: PERRL, EOM intact ENT: hearing intact, clear oral mucosa, dentition normal - Neck Neck: Present: supple, normal ROM - Respiratory Respiratory effort: normal Respiratory: bilateral: CTA - Cardiovascular Rhythm: regular Heart Sounds: Present: S1 & S2. Absent: gallop, rub - Extremities Extremities: No edema, Full ROM, abnormal (bilateral lower extremity gangrenous/necrotic toes) - Abdominal General gastrointestinal: soft, non-tender, non-distended, normal bowel sounds - Integumentary Integumentary: Present: clear, warm, dry - Neurologic Neurologic: CNII-XII intact, moves all extremities Results - Labs CBC & Chem 7: 10/24/18 05:56 10/24/18 05:56 Labs: Laboratory Last Values WBC 11.8 K/mm3 (4.5-11.0) H 10/24/18 05:56 RBC 3.64 M/mm3 (3.65-5.03) L 10/24/18 05:56 Hgb 11.2 gm/dl (11.8-15.2) L 10/24/18 05:56 Hct 33.4 % (35.5-45.6) L 10/24/18 05:56 MCV 92 fl (84-94) 10/24/18 05:56 MCH 31 pg (28-32) 10/24/18 05:56 MCHC 34 % (32-34) 10/24/18 05:56 RDW 14.2 % (13.2-15.2) 10/24/18 05:56 Plt Count 564 K/mm3 (140-440) H 10/24/18 05:56 Lymph % (Auto) 11.3 % (13.4-35.0) L 10/24/18 05:56 Giles % (Auto) 7.1 % (0.0-7.3) 10/24/18 05:56 Eos % (Auto) 1.0 % (0.0-4.3) 10/24/18 05:56 Baso % (Auto) 0.4 % (0.0-1.8) 10/24/18 05:56 Lymph # 1.3 K/mm3 (1.2-5.4) 10/24/18 05:56 Giles # 0.8 K/mm3 (0.0-0.8) 10/24/18 05:56 Eos # 0.1 K/mm3 (0.0-0.4) 10/24/18 05:56 Baso # 0.0 K/mm3 (0.0-0.1) 10/24/18 05:56 Add Manual Diff Complete 10/12/18 04:04 Total Counted 100 10/12/18 04:04 Seg Neutrophils % 80.2 % (40.0-70.0) H 10/24/18 05:56 Seg Neuts % (Manual) 32.0 % (40.0-70.0) L 10/12/18 04:04 39.0 % 10/12/18 04:04 19.0 % (13.4-35.0) 10/12/18 04:04 Reactive Lymphs % (Man) 0 % 10/12/18 04:04 8.0 % (0.0-7.3) H 10/12/18 04:04 0 % (0.0-4.3) 10/12/18 04:04 0 % (0.0-1.8) 10/12/18 04:04 2.0 % 10/12/18 04:04 0 % 10/12/18 04:04 0 % 10/12/18 04:04 0 % 10/12/18 04:04 Nucleated RBC % Not Reportable 10/12/18 04:04 Seg Neutrophils # 9.4 K/mm3 (1.8-7.7) H 10/24/18 05:56 Seg Neutrophils # Man 7.8 K/mm3 (1.8-7.7) H 10/12/18 04:04 Band Neutrophils # 9.5 K/mm3 10/12/18 04:04 4.6 K/mm3 (1.2-5.4) 10/12/18 04:04 Abs React Lymphs (Man) 0.0 K/mm3 10/12/18 04:04 2.0 K/mm3 (0.0-0.8) H 10/12/18 04:04 0.0 K/mm3 (0.0-0.4) 10/12/18 04:04 0.0 K/mm3 (0.0-0.1) 10/12/18 04:04 0.5 K/mm3 10/12/18 04:04 0.0 K/mm3 10/12/18 04:04 0.0 K/mm3 10/12/18 04:04 Blast Cells # 0.0 K/mm3 10/12/18 04:04 Pathologist Review 10/11/18 00:16 WBC Morphology Not Reportable 10/12/18 04:04 Hypersegmented Neuts Not Reportable 10/12/18 04:04 Hyposegmented Neuts Not Reportable 10/12/18 04:04 Hypogranular Neuts Not Reportable 10/12/18 04:04 Not Reportable 10/12/18 04:04 Not Reportable 10/12/18 04:04 Not Reportable 10/12/18 04:04 Not Reportable 10/12/18 04:04 Not Reportable 10/12/18 04:04 Not Reportable 10/12/18 04:04 Appears normal 10/12/18 04:04 Not Reportable 10/12/18 04:04 Plt Clumps, EDTA Not Reportable 10/12/18 04:04 Not Reportable 10/12/18 04:04 Not Reportable 10/12/18 04:04 Not Reportable 10/12/18 04:04 Plt Morphology Comment Not Reportable 10/12/18 04:04 RBC Morphology Not Reportable 10/12/18 04:04 Dimorphic RBCs Not Reportable 10/12/18 04:04 Not Reportable 10/12/18 04:04 Not Reportable 10/12/18 04:04 Not Reportable 10/12/18 04:04 1+ 10/12/18 04:04 Not Reportable 10/12/18 04:04 Not Reportable 10/12/18 04:04 Not Reportable 10/12/18 04:04 Not Reportable 10/12/18 04:04 Not Reportable 10/12/18 04:04 Not Reportable 10/12/18 04:04 Not Reportable 10/12/18 04:04 Not Reportable 10/12/18 04:04 Not Reportable 10/12/18 04:04 Not Reportable 10/12/18 04:04 Not Reportable 10/12/18 04:04 Not Reportable 10/12/18 04:04 Not Reportable 10/12/18 04:04 Not Reportable 10/12/18 04:04 Not Reportable 10/12/18 04:04 Acanthocytes (Spur) Not Reportable 10/12/18 04:04 Rouleaux Not Reportable 10/12/18 04:04 Not Reportable 10/12/18 04:04 Not Reportable 10/12/18 04:04 Not Reportable 10/12/18 04:04 Not Reportable 10/12/18 04:04 Hem Pathologist Commnt No 10/12/18 04:04 PT 13.5 Sec. (12.2-14.9) 10/23/18 04:38 INR 0.97 (0.87-1.13) 10/23/18 04:38 APTT 24.1 Sec. (24.2-36.6) L 10/11/18 08:29 Heparin Anti-Xa, Unfract Negative (Negative) 10/15/18 12:00 POC ABG pH 7.393 (7.35-7.45) 10/16/18 12:51 POC ABG pCO2 48.9 (35-45) H 10/16/18 12:51 POC ABG pO2 92 (80-105) 10/16/18 12:51 POC ABG HCO3 29.8 (22-26 mml/L) 10/16/18 12:51 POC ABG Total CO2 31 (23-27mmol/L) 10/16/18 12:51 POC ABG O2 Sat 97 10/16/18 12:51 POC ABG Base Excess 5 ((-2) - (+3)mmol/L) 10/16/18 12:51 35 % 10/16/18 12:51 Sodium 138 mmol/L (137-145) 10/24/18 05:56 Potassium 4.4 mmol/L (3.6-5.0) 10/24/18 05:56 Chloride 102.0 mmol/L (98-107) 10/24/18 05:56 Carbon Dioxide 29 mmol/L (22-30) 10/24/18 05:56 11 mmol/L 10/24/18 05:56 BUN 9 mg/dL (9-20) 10/24/18 05:56 0.5 mg/dL (0.8-1.5) L 10/24/18 05:56 Estimated GFR > 60 ml/min 10/24/18 05:56 18 % 10/24/18 05:56 Glucose 175 mg/dL (75-100) H 10/24/18 05:56 POC Glucose 137 (70-105) H 10/25/18 11:03 Lactic Acid 2.70 mmol/L (0.7-2.0) H* 10/11/18 12:30 Calcium 8.0 mg/dL (8.4-10.2) L 10/24/18 05:56 Phosphorus 2.80 mg/dL (2.5-4.5) 10/21/18 04:59 Magnesium 1.90 mg/dL (1.7-2.3) 10/21/18 04:59 0.30 mg/dL (0.1-1.2) 10/24/18 05:56 AST 44 units/L (5-40) H 10/24/18 05:56 ALT 40 units/L (7-56) 10/24/18 05:56 57 units/L (35-129) 10/24/18 05:56 3647 units/L (55-170) H 10/12/18 04:04 CK-MB (CK-2) 48.3 ng/mL (0.0-4.0) H 10/12/18 04:04 CK-MB (CK-2) Rel Index 1.3 (0-4) 10/12/18 04:04 0.816 ng/mL (0.00-0.029) H* 10/13/18 16:15 6.2 g/dL (6.3-8.2) L 10/24/18 05:56 2.4 g/dL (3.9-5) L 10/24/18 05:56 0.6 % 10/24/18 05:56 Triglycerides 87 mg/dL (2-149) 10/11/18 00:16 Cholesterol 73 mg/dL (50-199) 10/11/18 00:16 51 mg/dL (50-130) 10/11/18 00:16 19 mg/dL (40-59) L 10/11/18 00:16 3.84 % 10/11/18 00:16 See scanned report 10/15/18 12:00 Yellow (Yellow) 10/11/18 01:42 Cloudy (Clear) 10/11/18 01:42 6.0 (5.0-7.0) 10/11/18 01:42 Ur Specific [place] 1.011 (1.003-1.030) 10/11/18 01:42 100 mg/dl mg/dL (Negative) 10/11/18 01:42 >=500 mg/dL (Negative) 10/11/18 01:42 Neg mg/dL (Negative) 10/11/18 01:42 Mod (Negative) 10/11/18 01:42 Neg (Negative) 10/11/18 01:42 Neg (Negative) 10/11/18 01:42 4.0 mg/dL (<2.0) 10/11/18 01:42 Ur Leukocyte Esterase Neg (Negative) 10/11/18 01:42 5.0 /HPF (0.0-6.0) 10/11/18 01:42 2.0 /HPF (0.0-6.0) 10/11/18 01:42 U Epithel Cells (Auto) < 1.0 /HPF (0-13.0) 10/11/18 01:42 Amorphous Crystals 1+ 10/11/18 01:42 Few /HPF 10/11/18 01:42 2+ /HPF (DATA ENTRY MANAGER) 10/11/18 01:42 Vancomycin Trough 8.3 ug/mL (5.0-20.0) 10/13/18 05:40 Salicylates < 0.3 mg/dL (2.8-20.0) L 10/11/18 00:16 Presumptive positive 10/11/18 01:42 Presumptive negative 10/11/18 01:42 Acetaminophen < 5.0 ug/mL (10.0-30.0) L 10/11/18 00:16 Ur Barbiturates Screen Presumptive negative 10/11/18 01:42 Ur Phencyclidine Scrn Presumptive negative 10/11/18 01:42 Ur Amphetamines Screen Presumptive positive 10/11/18 01:42 U Benzodiazepines Scrn Presumptive positive 10/11/18 01:42 Presumptive negative 10/11/18 01:42 U Marijuana (THC) Screen Presumptive negative 10/11/18 01:42 Disclamer 10/11/18 01:42 Plasma/Serum Alcohol < 0.01 % (0-0.07) 10/11/18 00:16 Heparin-induced Plt Ab Negative (Negative) 10/15/18 12:00 UF Heparin High Dose 0 % Release 10/15/18 12:00 AURELIO UFH Low Dose 0.1 0 % Release 10/15/18 12:00 AURELIO UFH Low Dose 0.5 0 % Release 10/15/18 12:00 Active Medications - Current Medications Current Medications: Generic Name Dose Route Start Last Admin Trade Name Freq PRN Reason Stop Dose Admin Acetaminophen 650 mg 10/11/18 04:04 10/21/18 22:21 Tylenol PO 650 mg Q4H PRN Administration Pain MILD(1-3)/Fever >100.5/HOLLINS Acetaminophen 650 mg 10/18/18 11:53 Tylenol OH Q4H PRN Pain, Mild(1-3)/Fever>100.5/HOLLINS Albuterol 2.5 mg 10/19/18 00:54 Proventil IH Q4HRT PRN Shortness Of Breath Albuterol/Ipratropium 1 ampul 10/19/18 08:00 10/25/18 08:47 Duoneb *Not For Prn Use* IH 1 ampul TIDRT ISAAC Administration Alprazolam 1 mg 10/20/18 13:06 10/24/18 16:49 Xanax PO 1 mg TID PRN Administration Anxiety Lipase/Protease/Amylase 1 each 10/18/18 13:[address] 10,500 Unit FEEDTUBE PRN PRN For Clogged Feeding Tube Aspirin 325 mg 10/13/18 10:00 10/24/18 11:49 Aspirin PO 325 mg QDAY ISAAC Administration Citalopram Hydrobromide 10 mg 10/21/18 10:00 10/24/18 11:49 Celexa PO 10 mg QDAY ISAAC Administration Dextrose 0 ml 10/11/18 03:57 10/11/18 10:18 D50w (25gm) Syringe IV 10 ml PRN PRN Administration Hypoglycemia Enoxaparin Sodium 40 mg 10/18/18 22:00 10/24/18 21:21 Lovenox SUB-Q 40 mg QDAY@2200 ISAAC Administration Famotidine 20 mg 10/15/18 10:00 10/24/18 21:21 Pepcid PO 20 mg BID ISAAC Administration Hydromorphone HCl 0.5 mg 10/18/18 15:40 10/25/18 02:57 Dilaudid IV 0.5 mg Q3H PRN Administration Pain , Severe (7-10) Hydrophilic Ointment 1 applic 10/11/18 14:00 Vaseline Lip Therapy TP Q2HR PRN Dry Lips Insulin Human Regular 0 units 10/17/18 11:30 10/25/18 08:48 Humulin R SUB-Q 3 units ACHS ISAAC Administration Protocol Metoprolol Tartrate 25 mg 10/18/18 22:00 10/24/18 21:22 Lopressor PO 25 mg BID ISAAC Administration Metoprolol Tartrate 2.5 mg 10/18/18 18:51 10/18/18 22:19 Lopressor IV 2.5 mg Q6H PRN Administration Tachyarrhythmias Multi-Ingred Cream/Lotion/Oil/Oint 1 applic 10/11/18 14:00 Artificial Tears Ophth Oint OU Q4HR PRN Dry Eye(s) Ondansetron HCl 4 mg 10/11/18 04:04 Zofran IV Q8H PRN Nausea And Vomiting Oxycodone/Acetaminophen 1 tab 10/18/18 13:45 10/25/18 08:43 Percocet 5/325 PO 1 tab Q6H PRN Administration Pain, Moderate (4-6) Quetiapine Fumarate 200 mg 10/14/18 22:00 10/24/18 22:57 Seroquel PO 200 mg QHS ISAAC Administration Sodium Bicarbonate 325 mg 10/18/18 13:43 Sodium Bicarbonate FEEDTUBE PRN PRN For Clogged Feeding Tube Nutrition/Malnutrition Assess - Dietary Evaluation Nutrition/Malnutrition Findings: Nutrition Notes Start: 10/11/18 12:39 Freq: Status: Active Protocol: Document 10/24/18 09:19 SHERLY (Rec: 10/24/18 09:21 [facility] [email or web address]- [id number]) Nutrition Notes Initial or Follow up Brief Note Current Diet NPO Subjective/Other Information Pt NPO for scheduled angiography with possible revascularization today. He consumed 50% of meals yesterday. Percent of energy/protein needs met: 56% energy 48% pro Nutrition Intervention Follow-Up By: 10/25/18 Additional Comments F/U: diet advancement and reorder ONS
[2018-10-25] MEDS: ASPIRIN PO SCH (12:41)
[2018-10-25] MEDS: celeXA PO SCH (12:45)
[2018-10-25] MEDS: PEPCID PO SCH ×2 (12:46→21:58)
[2018-10-25] MEDS: LOPRESSOR PO SCH ×2 (12:48→21:58)
[2018-10-25] MEDS: XANAX PO PRN (12:48)
--- NOTE | 2018-10-25 14:36 | Progress Note ---
Assessment and Plan Acute hypoxemic respiratory failure, on mechanical ventilator support. Drug overdose. Acute chronic obstructive pulmonary disease exacerbation. Witnessed seizure en route. Acute kidney injury. Leukocytosis. Hypercapnia. Hyperkalemia. Metabolic acidosis. Lactic acidosis. Non-ST elevation myocardial infarction. Elevated serum transaminases. - continue ST evaluation; continue to advance diet per ST - follow clinically off AB's - resume full anticoagulation once cleared by neurology - continue bronchodilators with pulmonary hygiene per RT - continue GI & VTE prophylaxis - prn supplemental oxygen to keep O2 sats > 90% - azotemia per nephrology - Continue cardioprotective measures - Replete electrolytes as indicated - Monitor renal indices closely - Avoid nephrotoxic agents, adjust all medications for CrCL - Accuchecks with glycemic control. Target glucose of 140-180 mg/dL - Maintenance of sleep -wake cycle - Mobility protocol for pressure ulcer prophylaxis - Influenza and pneumonia vaccination per protocol ...... re-evaluate in am & prn Subjective Date of service: 10/25/18 Principal diagnosis: Ac hypercapnic hypoxemic Resp failure; Drug OD; AE-COPD; NINOSKA; Seizures Interval history: Patient is seen today for: Acute hypoxemic respiratory failure, on mechanical ventilator support; Drug overdose; Acute chronic obstructive pulmonary disease exacerbation; Witnessed seizure en route; Acute kidney injury; Leukocytosis; Hypercapnia. Seen and examined at bedside; 24-hour events reviewed; nursing and respiratory care staff consulted; no adverse overnight events reported to me; resting peacefully in bed; still somewhat confused; denies acute chest pains or palpitations; No N/V/F/C and no gross bleeding Objective Vital Signs - 12hr 10/25/18 10/25/18 10/25/18 05:03 06:33 07:03 Temperature 98.1 F Pulse Rate 94 H 97 H 100 H Pulse Rate [ Anterior Bilateral Throughout] Respiratory 18 20 18 Rate Respiratory Rate [Anterior Bilateral Throughout] Blood Pressure 102/56 109/64 O2 Sat by Pulse 91 94 93 Oximetry 10/25/18 10/25/18 10/25/18 08:47 08:57 11:44 Temperature 98.1 F Pulse Rate 106 H Pulse Rate [ 96 H 101 H Anterior Bilateral Throughout] Respiratory 20 Rate Respiratory 20 20 Rate [Anterior Bilateral Throughout] Blood Pressure 110/85 O2 Sat by Pulse 93 92 Oximetry 10/25/18 12:48 Temperature Pulse Rate Pulse Rate [ Anterior Bilateral Throughout] Respiratory Rate Respiratory Rate [Anterior Bilateral Throughout] Blood Pressure 118/78 O2 Sat by Pulse Oximetry Constitutional: no acute distress, other (middle aged but chronically ill looking CM; Atraumatic) Eyes: non-icteric ENT: oropharynx moist, other (mallampati 2) Neck: supple, no lymphadenopathy, no JVD Effort: normal Ascultation: Bilateral: diminished breath sounds, rhonchi Percussion: Bilateral: not dull Cardiovascular: irregular rhythm, other (No R/M) Gastrointestinal: normoactive bowel sounds, soft, non-tender, non-distended Integumentary: other (poor turgor) Extremities: no edema, no ischemia or petechiae, other (cool left leg campbell-down; with digital gangrene of left foot also) Neurologic: normal mental status, pupils equal and round, other (Left hemiparesis, improving) Psychiatric: mood appropriate, affect normal CBC and BMP: 11/06/18 07:00 11/06/18 07:00 ABG, PT/INR, D-dimer: ABG POC ABG pH 7.393 (7.35-7.45) 10/16/18 12:51 POC ABG pCO2 48.9 (35-45) H 10/16/18 12:51 POC ABG pO2 92 (80-105) 10/16/18 12:51 POC ABG HCO3 29.8 (22-26 mml/L) 10/16/18 12:51 POC ABG Total CO2 31 (23-27mmol/L) 10/16/18 12:51 POC ABG O2 Sat 97 10/16/18 12:51 PT/INR, D-dimer PT 13.5 Sec. (12.2-14.9) 10/23/18 04:38 INR 0.97 (0.87-1.13) 10/23/18 04:38 Abnormal lab findings: Abnormal Labs 10/11/18 10/11/18 10/11/18 00:16 00:16 00:16 WBC 20.1 H RBC Hgb Hct MCV 98 H RDW 15.4 H Plt Count Lymph % (Auto) Cobb % (Auto) Cobb # Seg Neutrophils % Seg Neuts % (Manual) Lymphocytes % (Manual) 5.0 L Monocytes % (Manual) 25.0 H Seg Neutrophils # Seg Neutrophils # Man 9.2 H Lymphocytes # (Manual) 1.0 L Monocytes # (Manual) 5.0 H APTT POC ABG pH POC ABG pCO2 POC ABG pO2 Sodium Potassium 5.8 H Chloride Carbon Dioxide 17 L BUN Creatinine 2.2 H Glucose 348 H POC Glucose Lactic Acid 13.70 H* Calcium 7.7 L Phosphorus Total Bilirubin 1.50 H AST 179 H ALT 110 H Total Creatine Kinase 324 H CK-MB (CK-2) Troponin T 0.257 H* Total Protein 5.9 L Albumin 2.9 L HDL Cholesterol 19 L Salicylates Acetaminophen 10/11/18 10/11/18 10/11/18 00:16 00:16 01:21 WBC RBC Hgb Hct MCV RDW Plt Count Lymph % (Auto) Cobb % (Auto) Cobb # Seg Neutrophils % Seg Neuts % (Manual) Lymphocytes % (Manual) Monocytes % (Manual) Seg Neutrophils # Seg Neutrophils # Man Lymphocytes # (Manual) Monocytes # (Manual) APTT POC ABG pH 7.110 L POC ABG pCO2 50.3 H POC ABG pO2 65 L Sodium Potassium Chloride Carbon Dioxide BUN Creatinine Glucose POC Glucose Lactic Acid Calcium Phosphorus Total Bilirubin AST ALT Total Creatine Kinase CK-MB (CK-2) Troponin T Total Protein Albumin HDL Cholesterol Salicylates < 0.3 L Acetaminophen < 5.0 L 10/11/18 10/11/18 10/11/18 01:22 03:27 04:14 WBC RBC Hgb Hct MCV RDW Plt Count Lymph % (Auto) Cobb % (Auto) Cobb # Seg Neutrophils % Seg Neuts % (Manual) Lymphocytes % (Manual) Monocytes % (Manual) Seg Neutrophils # Seg Neutrophils # Man Lymphocytes # (Manual) Monocytes # (Manual) APTT POC ABG pH POC ABG pCO2 POC ABG pO2 Sodium Potassium Chloride Carbon Dioxide BUN Creatinine Glucose POC Glucose Lactic Acid 8.50 H* 4.10 H* Calcium Phosphorus 4.90 H Total Bilirubin AST ALT Total Creatine Kinase CK-MB (CK-2) Troponin T Total Protein Albumin HDL Cholesterol Salicylates Acetaminophen 10/11/18 10/11/18 10/11/18 04:14 04:14 04:14 WBC RBC Hgb Hct MCV RDW Plt Count Lymph % (Auto) Cobb % (Auto) Cobb # Seg Neutrophils % Seg Neuts % (Manual) Lymphocytes % (Manual) Monocytes % (Manual) Seg Neutrophils # Seg Neutrophils # Man Lymphocytes # (Manual) Monocytes # (Manual) APTT POC ABG pH POC ABG pCO2 POC ABG pO2 Sodium Potassium 5.6 H Chloride Carbon Dioxide 19 L BUN Creatinine 1.6 H Glucose 329 H POC Glucose 328 H Lactic Acid Calcium 7.3 L Phosphorus Total Bilirubin AST ALT Total Creatine Kinase CK-MB (CK-2) Troponin T 1.130 H* D Total Protein Albumin HDL Cholesterol Salicylates Acetaminophen 10/11/18 10/11/18 10/11/18 05:10 05:32 05:58 WBC RBC Hgb Hct MCV RDW Plt Count Lymph % (Auto) Cobb % (Auto) Cobb # Seg Neutrophils % Seg Neuts % (Manual) Lymphocytes % (Manual) Monocytes % (Manual) Seg Neutrophils # Seg Neutrophils # Man Lymphocytes # (Manual) Monocytes # (Manual) APTT POC ABG pH 7.259 L POC ABG pCO2 45.6 H POC ABG pO2 Sodium Potassium Chloride 108.6 H Carbon Dioxide 20 L BUN Creatinine 1.8 H Glucose 269 H POC Glucose 273 H Lactic Acid Calcium 7.0 L Phosphorus Total Bilirubin AST ALT Total Creatine Kinase CK-MB (CK-2) Troponin T Total Protein Albumin HDL Cholesterol Salicylates Acetaminophen 10/11/18 10/11/18 10/11/18 05:58 06:39 07:00 WBC RBC Hgb Hct MCV RDW Plt Count Lymph % (Auto) Cobb % (Auto) Cobb # Seg Neutrophils % Seg Neuts % (Manual) Lymphocytes % (Manual) Monocytes % (Manual) Seg Neutrophils # Seg Neutrophils # Man Lymphocytes # (Manual) Monocytes # (Manual) APTT POC ABG pH POC ABG pCO2 POC ABG pO2 Sodium Potassium Chloride Carbon Dioxide BUN Creatinine Glucose POC Glucose 247 H Lactic Acid 3.20 H* 3.30 H* Calcium Phosphorus Total Bilirubin AST ALT Total Creatine Kinase CK-MB (CK-2) Troponin T Total Protein Albumin HDL Cholesterol Salicylates Acetaminophen 10/11/18 10/11/18 10/11/18 07:00 07:30 07:36 WBC RBC Hgb Hct MCV RDW Plt Count Lymph % (Auto) Cobb % (Auto) Cobb # Seg Neutrophils % Seg Neuts % (Manual) Lymphocytes % (Manual) Monocytes % (Manual) Seg Neutrophils # Seg Neutrophils # Man Lymphocytes # (Manual) Monocytes # (Manual) APTT POC ABG pH POC ABG pCO2 POC ABG pO2 Sodium 146 H Potassium Chloride 112.1 H Carbon Dioxide 21 L BUN Creatinine 1.6 H Glucose 218 H POC Glucose Lactic Acid 3.20 H* Calcium 7.0 L Phosphorus Total Bilirubin AST ALT Total Creatine Kinase CK-MB (CK-2) Troponin T 1.020 H* Total Protein Albumin HDL Cholesterol Salicylates Acetaminophen 10/11/18 10/11/18 10/11/18 07:43 08:29 08:29 WBC RBC Hgb 16.2 H Hct 49.9 H D MCV RDW Plt Count Lymph % (Auto) Cobb % (Auto) Cobb # Seg Neutrophils % Seg Neuts % (Manual) Lymphocytes % (Manual) Monocytes % (Manual) Seg Neutrophils # Seg Neutrophils # Man Lymphocytes # (Manual) Monocytes # (Manual) APTT POC ABG pH POC ABG pCO2 POC ABG pO2 Sodium Potassium Chloride Carbon Dioxide BUN Creatinine Glucose POC Glucose 174 H Lactic Acid 3.90 H* Calcium Phosphorus Total Bilirubin AST ALT Total Creatine Kinase CK-MB (CK-2) Troponin T Total Protein Albumin HDL Cholesterol Salicylates Acetaminophen 10/11/18 10/11/18 10/11/18 08:29 08:42 11:05 WBC RBC Hgb Hct MCV RDW Plt Count Lymph % (Auto) Cobb % (Auto) Cobb # Seg Neutrophils % Seg Neuts % (Manual) Lymphocytes % (Manual) Monocytes % (Manual) Seg Neutrophils # Seg Neutrophils # Man Lymphocytes # (Manual) Monocytes # (Manual) APTT 24.1 L POC ABG pH POC ABG pCO2 POC ABG pO2 Sodium 147 H Potassium Chloride 113.3 H Carbon Dioxide 21 L BUN Creatinine 1.7 H Glucose 119 H POC Glucose 164 H Lactic Acid Calcium 7.7 L Phosphorus Total Bilirubin AST ALT Total Creatine Kinase CK-MB (CK-2) Troponin T Total Protein Albumin HDL Cholesterol Salicylates Acetaminophen 10/11/18 10/11/18 10/11/18 11:05 11:06 12:30 WBC RBC Hgb Hct MCV RDW Plt Count Lymph % (Auto) Cobb % (Auto) Cobb # Seg Neutrophils % Seg Neuts % (Manual) Lymphocytes % (Manual) Monocytes % (Manual) Seg Neutrophils # Seg Neutrophils # Man Lymphocytes # (Manual) Monocytes # (Manual) APTT POC ABG pH POC ABG pCO2 POC ABG pO2 Sodium 148 H Potassium Chloride 113.4 H Carbon Dioxide 21 L BUN Creatinine 1.6 H Glucose 119 H POC Glucose 116 H Lactic Acid 3.20 H* Calcium 7.5 L Phosphorus Total Bilirubin AST ALT Total Creatine Kinase CK-MB (CK-2) Troponin T Total Protein Albumin HDL Cholesterol Salicylates Acetaminophen 10/11/18 10/11/18 10/11/18 12:30 13:16 13:25 WBC RBC Hgb Hct MCV RDW Plt Count Lymph % (Auto) Cobb % (Auto) Cobb # Seg Neutrophils % Seg Neuts % (Manual) Lymphocytes % (Manual) Monocytes % (Manual) Seg Neutrophils # Seg Neutrophils # Man Lymphocytes # (Manual) Monocytes # (Manual) APTT POC ABG pH 7.247 L POC ABG pCO2 48.4 H POC ABG pO2 Sodium Potassium Chloride Carbon Dioxide BUN Creatinine Glucose POC Glucose 112 H Lactic Acid 2.70 H* Calcium Phosphorus Total Bilirubin AST ALT Total Creatine Kinase CK-MB (CK-2) Troponin T Total Protein Albumin HDL Cholesterol Salicylates Acetaminophen 10/11/18 10/11/18 10/11/18 14:41 15:27 16:13 WBC RBC Hgb Hct MCV RDW Plt Count Lymph % (Auto) Cobb % (Auto) Cobb # Seg Neutrophils % Seg Neuts % (Manual) Lymphocytes % (Manual) Monocytes % (Manual) Seg Neutrophils # Seg Neutrophils # Man Lymphocytes # (Manual) Monocytes # (Manual) APTT POC ABG pH POC ABG pCO2 POC ABG pO2 Sodium Potassium Chloride Carbon Dioxide BUN Creatinine Glucose POC Glucose 127 H 141 H 134 H Lactic Acid Calcium Phosphorus Total Bilirubin AST ALT Total Creatine Kinase CK-MB (CK-2) Troponin T Total Protein Albumin HDL Cholesterol Salicylates Acetaminophen 10/11/18 10/11/18 10/11/18 17:18 18:23 19:38 WBC RBC Hgb Hct MCV RDW Plt Count Lymph % (Auto) Cobb % (Auto) Cobb # Seg Neutrophils % Seg Neuts % (Manual) Lymphocytes % (Manual) Monocytes % (Manual) Seg Neutrophils # Seg Neutrophils # Man Lymphocytes # (Manual) Monocytes # (Manual) APTT POC ABG pH POC ABG pCO2 POC ABG pO2 Sodium 148 H Potassium Chloride 112.7 H Carbon Dioxide BUN 23 H Creatinine Glucose 143 H POC Glucose 132 H 129 H Lactic Acid Calcium 7.9 L Phosphorus Total Bilirubin AST ALT Total Creatine Kinase CK-MB (CK-2) Troponin T Total Protein Albumin HDL Cholesterol Salicylates Acetaminophen 10/11/18 10/11/18 10/11/18 20:19 20:36 21:01 WBC RBC Hgb Hct MCV RDW Plt Count Lymph % (Auto) Cobb % (Auto) Cobb # Seg Neutrophils % Seg Neuts % (Manual) Lymphocytes % (Manual) Monocytes % (Manual) Seg Neutrophils # Seg Neutrophils # Man Lymphocytes # (Manual) Monocytes # (Manual) APTT POC ABG pH 7.281 L POC ABG pCO2 POC ABG pO2 Sodium Potassium Chloride Carbon Dioxide BUN Creatinine Glucose POC Glucose 129 H 151 H Lactic Acid Calcium Phosphorus Total Bilirubin AST ALT Total Creatine Kinase CK-MB (CK-2) Troponin T Total Protein Albumin HDL Cholesterol Salicylates Acetaminophen 10/11/18 10/11/18 10/12/18 22:04 23:15 01:18 WBC RBC Hgb Hct MCV RDW Plt Count Lymph % (Auto) Cobb % (Auto) Cobb # Seg Neutrophils % Seg Neuts % (Manual) Lymphocytes % (Manual) Monocytes % (Manual) Seg Neutrophils # Seg Neutrophils # Man Lymphocytes # (Manual) Monocytes # (Manual) APTT POC ABG pH POC ABG pCO2 POC ABG pO2 Sodium Potassium Chloride Carbon Dioxide BUN Creatinine Glucose POC Glucose 147 H 143 H 158 H Lactic Acid Calcium Phosphorus Total Bilirubin AST ALT Total Creatine Kinase CK-MB (CK-2) Troponin T Total Protein Albumin HDL Cholesterol Salicylates Acetaminophen 10/12/18 10/12/18 10/12/18 02:13 03:18 04:04 WBC RBC Hgb Hct MCV RDW Plt Count Lymph % (Auto) Cobb % (Auto) Cobb # Seg Neutrophils % Seg Neuts % (Manual) Lymphocytes % (Manual) Monocytes % (Manual) Seg Neutrophils # Seg Neutrophils # Man Lymphocytes # (Manual) Monocytes # (Manual) APTT POC ABG pH POC ABG pCO2 POC ABG pO2 Sodium 147 H Potassium Chloride 111.1 H Carbon Dioxide BUN 30 H Creatinine 2.0 H Glucose 154 H POC Glucose 148 H 142 H Lactic Acid Calcium 8.1 L Phosphorus Total Bilirubin AST 269 H ALT 204 H Total Creatine Kinase 3647 H CK-MB (CK-2) 48.3 H Troponin T 2.230 H* D Total Protein 5.8 L Albumin 2.6 L HDL Cholesterol Salicylates Acetaminophen 10/12/18 10/12/18 10/12/18 04:04 04:08 04:19 WBC 24.4 H RBC Hgb Hct MCV RDW Plt Count Lymph % (Auto) Cobb % (Auto) Cobb # Seg Neutrophils % Seg Neuts % (Manual) 32.0 L Lymphocytes % (Manual) Monocytes % (Manual) 8.0 H Seg Neutrophils # Seg Neutrophils # Man 7.8 H Lymphocytes # (Manual) Monocytes # (Manual) 2.0 H APTT POC ABG pH 7.317 L POC ABG pCO2 49.3 H POC ABG pO2 Sodium Potassium Chloride Carbon Dioxide BUN Creatinine Glucose POC Glucose 143 H Lactic Acid Calcium Phosphorus Total Bilirubin AST ALT Total Creatine Kinase CK-MB (CK-2) Troponin T Total Protein Albumin HDL Cholesterol Salicylates Acetaminophen 10/12/18 10/12/18 10/12/18 05:29 06:52 08:09 WBC RBC Hgb Hct MCV RDW Plt Count Lymph % (Auto) Cobb % (Auto) Cobb # Seg Neutrophils % Seg Neuts % (Manual) Lymphocytes % (Manual) Monocytes % (Manual) Seg Neutrophils # Seg Neutrophils # Man Lymphocytes # (Manual) Monocytes # (Manual) APTT POC ABG pH 7.322 L POC ABG pCO2 46.5 H POC ABG pO2 Sodium Potassium Chloride Carbon Dioxide BUN Creatinine Glucose POC Glucose 196 H 226 H Lactic Acid Calcium Phosphorus Total Bilirubin AST ALT Total Creatine Kinase CK-MB (CK-2) Troponin T Total Protein Albumin HDL Cholesterol Salicylates Acetaminophen 10/12/18 10/12/18 10/12/18 08:38 10:03 15:50 WBC RBC Hgb Hct MCV RDW Plt Count Lymph % (Auto) Cobb % (Auto) Cobb # Seg Neutrophils % Seg Neuts % (Manual) Lymphocytes % (Manual) Monocytes % (Manual) Seg Neutrophils # Seg Neutrophils # Man Lymphocytes # (Manual) Monocytes # (Manual) APTT POC ABG pH POC ABG pCO2 POC ABG pO2 Sodium Potassium Chloride Carbon Dioxide BUN Creatinine Glucose POC Glucose 138 H 148 H 221 H Lactic Acid Calcium Phosphorus Total Bilirubin AST ALT Total Creatine Kinase CK-MB (CK-2) Troponin T Total Protein Albumin HDL Cholesterol Salicylates Acetaminophen 10/12/18 10/12/18 10/12/18 18:39 20:56 21:34 WBC RBC Hgb Hct MCV RDW Plt Count Lymph % (Auto) Cobb % (Auto) Cobb # Seg Neutrophils % Seg Neuts % (Manual) Lymphocytes % (Manual) Monocytes % (Manual) Seg Neutrophils # Seg Neutrophils # Man Lymphocytes # (Manual) Monocytes # (Manual) APTT POC ABG pH 7.336 L POC ABG pCO2 46.0 H POC ABG pO2 Sodium Potassium Chloride Carbon Dioxide BUN Creatinine Glucose POC Glucose 255 H 260 H Lactic Acid Calcium Phosphorus Total Bilirubin AST ALT Total Creatine Kinase CK-MB (CK-2) Troponin T Total Protein Albumin HDL Cholesterol Salicylates Acetaminophen 10/13/18 10/13/18 10/13/18 02:29 05:09 05:40 WBC 17.0 H RBC Hgb Hct MCV RDW Plt Count Lymph % (Auto) Cobb % (Auto) 9.2 H Cobb # 1.6 H Seg Neutrophils % 76.2 H Seg Neuts % (Manual) Lymphocytes % (Manual) Monocytes % (Manual) Seg Neutrophils # 12.9 H Seg Neutrophils # Man Lymphocytes # (Manual) Monocytes # (Manual) APTT POC ABG pH POC ABG pCO2 POC ABG pO2 Sodium Potassium Chloride Carbon Dioxide BUN Creatinine Glucose POC Glucose 216 H 249 H Lactic Acid Calcium Phosphorus Total Bilirubin AST ALT Total Creatine Kinase CK-MB (CK-2) Troponin T Total Protein Albumin HDL Cholesterol Salicylates Acetaminophen 10/13/18 10/13/18 10/13/18 05:40 05:40 09:46 WBC RBC Hgb Hct MCV RDW Plt Count Lymph % (Auto) Cobb % (Auto) Cobb # Seg Neutrophils % Seg Neuts % (Manual) Lymphocytes % (Manual) Monocytes % (Manual) Seg Neutrophils # Seg Neutrophils # Man Lymphocytes # (Manual) Monocytes # (Manual) APTT POC ABG pH POC ABG pCO2 POC ABG pO2 Sodium 146 H Potassium Chloride 109.8 H Carbon Dioxide BUN 35 H Creatinine Glucose 245 H POC Glucose 235 H Lactic Acid Calcium 7.9 L Phosphorus Total Bilirubin AST ALT Total Creatine Kinase CK-MB (CK-2) Troponin T 0.952 H* D Total Protein Albumin HDL Cholesterol Salicylates Acetaminophen 10/13/18 10/13/18 10/13/18 13:58 16:15 17:30 WBC RBC Hgb Hct MCV RDW Plt Count Lymph % (Auto) Cobb % (Auto) Cobb # Seg Neutrophils % Seg Neuts % (Manual) Lymphocytes % (Manual) Monocytes % (Manual) Seg Neutrophils # Seg Neutrophils # Man Lymphocytes # (Manual) Monocytes # (Manual) APTT POC ABG pH POC ABG pCO2 51.2 H POC ABG pO2 Sodium Potassium Chloride Carbon Dioxide BUN Creatinine Glucose POC Glucose 139 H Lactic Acid Calcium Phosphorus Total Bilirubin AST ALT Total Creatine Kinase CK-MB (CK-2) Troponin T 0.816 H* Total Protein Albumin HDL Cholesterol Salicylates Acetaminophen 10/13/18 10/14/18 10/14/18 21:25 01:49 04:52 WBC RBC Hgb Hct MCV RDW Plt Count Lymph % (Auto) Cobb % (Auto) Cobb # Seg Neutrophils % Seg Neuts % (Manual) Lymphocytes % (Manual) Monocytes % (Manual) Seg Neutrophils # Seg Neutrophils # Man Lymphocytes # (Manual) Monocytes # (Manual) APTT POC ABG pH POC ABG pCO2 56.0 H POC ABG pO2 Sodium Potassium Chloride Carbon Dioxide BUN Creatinine Glucose POC Glucose 205 H 166 H Lactic Acid Calcium Phosphorus Total Bilirubin AST ALT Total Creatine Kinase CK-MB (CK-2) Troponin T Total Protein Albumin HDL Cholesterol Salicylates Acetaminophen 10/14/18 10/14/18 10/14/18 05:32 09:45 09:45 WBC RBC Hgb 11.4 L Hct 34.5 L MCV RDW Plt Count 139 L Lymph % (Auto) Cobb % (Auto) Cobb # Seg Neutrophils % Seg Neuts % (Manual) Lymphocytes % (Manual) Monocytes % (Manual) Seg Neutrophils # Seg Neutrophils # Man Lymphocytes # (Manual) Monocytes # (Manual) APTT POC ABG pH POC ABG pCO2 POC ABG pO2 Sodium 148 H Potassium Chloride 107.3 H Carbon Dioxide 34 H D BUN Creatinine 0.7 L D Glucose 191 H POC Glucose 164 H Lactic Acid Calcium 7.3 L Phosphorus Total Bilirubin AST 110 H ALT 91 H Total Creatine Kinase CK-MB (CK-2) Troponin T Total Protein 4.9 L Albumin 2.0 L HDL Cholesterol Salicylates Acetaminophen 10/14/18 10/14/18 10/14/18 10:54 12:20 18:30 WBC RBC Hgb Hct MCV RDW Plt Count Lymph % (Auto) Cobb % (Auto) Cobb # Seg Neutrophils % Seg Neuts % (Manual) Lymphocytes % (Manual) Monocytes % (Manual) Seg Neutrophils # Seg Neutrophils # Man Lymphocytes # (Manual) Monocytes # (Manual) APTT POC ABG pH POC ABG pCO2 POC ABG pO2 Sodium Potassium Chloride Carbon Dioxide BUN Creatinine Glucose POC Glucose 173 H 158 H 108 H Lactic Acid Calcium Phosphorus Total Bilirubin AST ALT Total Creatine Kinase CK-MB (CK-2) Troponin T Total Protein Albumin HDL Cholesterol Salicylates Acetaminophen 10/14/18 10/15/18 10/15/18 21:54 02:12 04:19 WBC RBC Hgb Hct MCV RDW Plt Count Lymph % (Auto) Cobb % (Auto) Cobb # Seg Neutrophils % Seg Neuts % (Manual) Lymphocytes % (Manual) Monocytes % (Manual) Seg Neutrophils # Seg Neutrophils # Man Lymphocytes # (Manual) Monocytes # (Manual) APTT POC ABG pH 7.491 H POC ABG pCO2 45.1 H POC ABG pO2 Sodium Potassium Chloride Carbon Dioxide BUN Creatinine Glucose POC Glucose 110 H 164 H Lactic Acid Calcium Phosphorus Total Bilirubin AST ALT Total Creatine Kinase CK-MB (CK-2) Troponin T Total Protein Albumin HDL Cholesterol Salicylates Acetaminophen 10/15/18 10/15/18 10/15/18 04:55 05:43 06:20 WBC RBC Hgb 11.7 L Hct 34.7 L MCV RDW Plt Count Lymph % (Auto) Cobb % (Auto) Cobb # Seg Neutrophils % Seg Neuts % (Manual) Lymphocytes % (Manual) Monocytes % (Manual) Seg Neutrophils # Seg Neutrophils # Man Lymphocytes # (Manual) Monocytes # (Manual) APTT POC ABG pH POC ABG pCO2 47.3 H POC ABG pO2 78 L Sodium Potassium Chloride Carbon Dioxide BUN Creatinine Glucose POC Glucose 250 H Lactic Acid Calcium Phosphorus Total Bilirubin AST ALT Total Creatine Kinase CK-MB (CK-2) Troponin T Total Protein Albumin HDL Cholesterol Salicylates Acetaminophen 10/15/18 10/15/18 10/15/18 12:00 12:00 12:11 WBC RBC Hgb 11.5 L Hct 34.0 L MCV RDW Plt Count Lymph % (Auto) Cobb % (Auto) Cobb # Seg Neutrophils % Seg Neuts % (Manual) Lymphocytes % (Manual) Monocytes % (Manual) Seg Neutrophils # Seg Neutrophils # Man Lymphocytes # (Manual) Monocytes # (Manual) APTT POC ABG pH POC ABG pCO2 POC ABG pO2 Sodium 147 H Potassium Chloride 108.5 H Carbon Dioxide BUN Creatinine 0.7 L Glucose 209 H POC Glucose 197 H Lactic Acid Calcium 7.3 L Phosphorus Total Bilirubin AST ALT Total Creatine Kinase CK-MB (CK-2) Troponin T Total Protein Albumin HDL Cholesterol Salicylates Acetaminophen 10/15/18 10/15/18 10/15/18 15:48 18:34 21:29 WBC RBC Hgb Hct MCV RDW Plt Count Lymph % (Auto) Cobb % (Auto) Cobb # Seg Neutrophils % Seg Neuts % (Manual) Lymphocytes % (Manual) Monocytes % (Manual) Seg Neutrophils # Seg Neutrophils # Man Lymphocytes # (Manual) Monocytes # (Manual) APTT POC ABG pH POC ABG pCO2 POC ABG pO2 Sodium Potassium Chloride Carbon Dioxide BUN Creatinine Glucose POC Glucose 220 H 249 H 209 H Lactic Acid Calcium Phosphorus Total Bilirubin AST ALT Total Creatine Kinase CK-MB (CK-2) Troponin T Total Protein Albumin HDL Cholesterol Salicylates Acetaminophen 10/16/18 10/16/18 10/16/18 02:16 03:50 05:57 WBC RBC Hgb Hct MCV RDW Plt Count Lymph % (Auto) Cobb % (Auto) Cobb # Seg Neutrophils % Seg Neuts % (Manual) Lymphocytes % (Manual) Monocytes % (Manual) Seg Neutrophils # Seg Neutrophils # Man Lymphocytes # (Manual) Monocytes # (Manual) APTT POC ABG pH POC ABG pCO2 55.8 H POC ABG pO2 Sodium Potassium Chloride Carbon Dioxide BUN Creatinine Glucose POC Glucose 110 H 209 H Lactic Acid Calcium Phosphorus Total Bilirubin AST ALT Total Creatine Kinase CK-MB (CK-2) Troponin T Total Protein Albumin HDL Cholesterol Salicylates Acetaminophen 10/16/18 10/16/18 10/16/18 10:51 12:51 15:01 WBC RBC Hgb Hct MCV RDW Plt Count Lymph % (Auto) Cobb % (Auto) Cobb # Seg Neutrophils % Seg Neuts % (Manual) Lymphocytes % (Manual) Monocytes % (Manual) Seg Neutrophils # Seg Neutrophils # Man Lymphocytes # (Manual) Monocytes # (Manual) APTT POC ABG pH POC ABG pCO2 48.9 H POC ABG pO2 Sodium Potassium Chloride Carbon Dioxide BUN Creatinine Glucose POC Glucose 198 H 196 H Lactic Acid Calcium Phosphorus Total Bilirubin AST ALT Total Creatine Kinase CK-MB (CK-2) Troponin T Total Protein Albumin HDL Cholesterol Salicylates Acetaminophen 10/16/18 10/16/18 10/17/18 17:34 21:59 02:17 WBC RBC Hgb Hct MCV RDW Plt Count Lymph % (Auto) Cobb % (Auto) Cobb # Seg Neutrophils % Seg Neuts % (Manual) Lymphocytes % (Manual) Monocytes % (Manual) Seg Neutrophils # Seg Neutrophils # Man Lymphocytes # (Manual) Monocytes # (Manual) APTT POC ABG pH POC ABG pCO2 POC ABG pO2 Sodium Potassium Chloride Carbon Dioxide BUN Creatinine Glucose POC Glucose 179 H 139 H 135 H Lactic Acid Calcium Phosphorus Total Bilirubin AST ALT Total Creatine Kinase CK-MB (CK-2) Troponin T Total Protein Albumin HDL Cholesterol Salicylates Acetaminophen 10/17/18 10/17/18 10/17/18 05:40 05:47 10:18 WBC RBC Hgb 11.3 L Hct 33.2 L MCV RDW Plt Count Lymph % (Auto) Cobb % (Auto) Cobb # Seg Neutrophils % Seg Neuts % (Manual) Lymphocytes % (Manual) Monocytes % (Manual) Seg Neutrophils # Seg Neutrophils # Man Lymphocytes # (Manual) Monocytes # (Manual) APTT POC ABG pH POC ABG pCO2 POC ABG pO2 Sodium Potassium Chloride Carbon Dioxide BUN Creatinine Glucose POC Glucose 125 H 139 H Lactic Acid Calcium Phosphorus Total Bilirubin AST ALT Total Creatine Kinase CK-MB (CK-2) Troponin T Total Protein Albumin HDL Cholesterol Salicylates Acetaminophen 10/17/18 10/18/18 10/18/18 23:11 08:49 11:31 WBC RBC Hgb Hct MCV RDW Plt Count Lymph % (Auto) Cobb % (Auto) Cobb # Seg Neutrophils % Seg Neuts % (Manual) Lymphocytes % (Manual) Monocytes % (Manual) Seg Neutrophils # Seg Neutrophils # Man Lymphocytes # (Manual) Monocytes # (Manual) APTT POC ABG pH POC ABG pCO2 POC ABG pO2 Sodium Potassium Chloride Carbon Dioxide BUN Creatinine Glucose POC Glucose 165 H 125 H 182 H Lactic Acid Calcium Phosphorus Total Bilirubin AST ALT Total Creatine Kinase CK-MB (CK-2) Troponin T Total Protein Albumin HDL Cholesterol Salicylates Acetaminophen 10/18/18 10/18/18 10/19/18 16:12 21:02 00:28 WBC RBC Hgb 11.4 L Hct 33.6 L MCV RDW Plt Count Lymph % (Auto) Cobb % (Auto) 14.0 H Cobb # 1.2 H Seg Neutrophils % Seg Neuts % (Manual) Lymphocytes % (Manual) Monocytes % (Manual) Seg Neutrophils # Seg Neutrophils # Man Lymphocytes # (Manual) Monocytes # (Manual) APTT POC ABG pH POC ABG pCO2 POC ABG pO2 Sodium Potassium Chloride Carbon Dioxide BUN Creatinine Glucose POC Glucose 168 H 324 H Lactic Acid Calcium Phosphorus Total Bilirubin AST ALT Total Creatine Kinase CK-MB (CK-2) Troponin T Total Protein Albumin HDL Cholesterol Salicylates Acetaminophen 10/19/18 10/19/18 10/19/18 04:57 04:57 07:32 WBC RBC Hgb 11.7 L Hct 34.0 L MCV RDW Plt Count Lymph % (Auto) Cobb % (Auto) Cobb # Seg Neutrophils % Seg Neuts % (Manual) Lymphocytes % (Manual) Monocytes % (Manual) Seg Neutrophils # Seg Neutrophils # Man Lymphocytes # (Manual) Monocytes # (Manual) APTT POC ABG pH POC ABG pCO2 POC ABG pO2 Sodium Potassium 3.5 L Chloride 108.6 H Carbon Dioxide BUN Creatinine 0.6 L Glucose POC Glucose 159 H Lactic Acid Calcium 7.9 L Phosphorus Total Bilirubin AST ALT Total Creatine Kinase CK-MB (CK-2) Troponin T Total Protein Albumin HDL Cholesterol Salicylates Acetaminophen 10/19/18 10/19/18 10/20/18 16:25 20:59 12:04 WBC RBC Hgb Hct MCV RDW Plt Count Lymph % (Auto) Cobb % (Auto) Cobb # Seg Neutrophils % Seg Neuts % (Manual) Lymphocytes % (Manual) Monocytes % (Manual) Seg Neutrophils # Seg Neutrophils # Man Lymphocytes # (Manual) Monocytes # (Manual) APTT POC ABG pH POC ABG pCO2 POC ABG pO2 Sodium Potassium Chloride Carbon Dioxide BUN Creatinine Glucose POC Glucose 134 H 110 H 338 H Lactic Acid Calcium Phosphorus Total Bilirubin AST ALT Total Creatine Kinase CK-MB (CK-2) Troponin T Total Protein Albumin HDL Cholesterol Salicylates Acetaminophen 10/20/18 10/20/18 10/21/18 17:55 22:07 04:59 WBC RBC Hgb 11.6 L Hct 33.9 L MCV RDW Plt Count Lymph % (Auto) Cobb % (Auto) 9.7 H Cobb # 0.9 H Seg Neutrophils % 70.7 H Seg Neuts % (Manual) Lymphocytes % (Manual) Monocytes % (Manual) Seg Neutrophils # Seg Neutrophils # Man Lymphocytes # (Manual) Monocytes # (Manual) APTT POC ABG pH POC ABG pCO2 POC ABG pO2 Sodium Potassium Chloride Carbon Dioxide BUN Creatinine Glucose POC Glucose 146 H 164 H Lactic Acid Calcium Phosphorus Total Bilirubin AST ALT Total Creatine Kinase CK-MB (CK-2) Troponin T Total Protein Albumin HDL Cholesterol Salicylates Acetaminophen 10/21/18 10/21/18 10/21/18 04:59 07:52 11:39 WBC RBC Hgb Hct MCV RDW Plt Count Lymph % (Auto) Cobb % (Auto) Cobb # Seg Neutrophils % Seg Neuts % (Manual) Lymphocytes % (Manual) Monocytes % (Manual) Seg Neutrophils # Seg Neutrophils # Man Lymphocytes # (Manual) Monocytes # (Manual) APTT POC ABG pH POC ABG pCO2 POC ABG pO2 Sodium Potassium 3.5 L Chloride 107.1 H Carbon Dioxide BUN Creatinine 0.5 L Glucose 158 H POC Glucose 142 H 194 H Lactic Acid Calcium 7.5 L Phosphorus Total Bilirubin AST ALT Total Creatine Kinase CK-MB (CK-2) Troponin T Total Protein 5.6 L Albumin 2.0 L HDL Cholesterol Salicylates Acetaminophen 10/21/18 10/21/18 10/22/18 17:05 20:37 05:38 WBC RBC 3.48 L Hgb 10.8 L Hct 31.7 L MCV RDW Plt Count 458 H Lymph % (Auto) Cobb % (Auto) 10.5 H Cobb # Seg Neutrophils % Seg Neuts % (Manual) Lymphocytes % (Manual) Monocytes % (Manual) Seg Neutrophils # Seg Neutrophils # Man Lymphocytes # (Manual) Monocytes # (Manual) APTT POC ABG pH POC ABG pCO2 POC ABG pO2 Sodium Potassium Chloride Carbon Dioxide BUN Creatinine Glucose POC Glucose 167 H 182 H Lactic Acid Calcium Phosphorus Total Bilirubin AST ALT Total Creatine Kinase CK-MB (CK-2) Troponin T Total Protein Albumin HDL Cholesterol Salicylates Acetaminophen 10/22/18 10/22/18 10/22/18 05:38 07:48 12:08 WBC RBC Hgb Hct MCV RDW Plt Count Lymph % (Auto) Cobb % (Auto) Cobb # Seg Neutrophils % Seg Neuts % (Manual) Lymphocytes % (Manual) Monocytes % (Manual) Seg Neutrophils # Seg Neutrophils # Man Lymphocytes # (Manual) Monocytes # (Manual) APTT POC ABG pH POC ABG pCO2 POC ABG pO2 Sodium Potassium Chloride Carbon Dioxide BUN Creatinine 0.5 L Glucose 146 H POC Glucose 130 H 167 H Lactic Acid Calcium 7.8 L Phosphorus Total Bilirubin AST 41 H ALT Total Creatine Kinase CK-MB (CK-2) Troponin T Total Protein 5.5 L Albumin 2.1 L HDL Cholesterol Salicylates Acetaminophen 10/22/18 10/22/18 10/23/18 16:45 21:42 04:38 WBC RBC Hgb 11.7 L Hct 34.7 L MCV RDW Plt Count 523 H Lymph % (Auto) Cobb % (Auto) 8.7 H Cobb # Seg Neutrophils % 71.6 H Seg Neuts % (Manual) Lymphocytes % (Manual) Monocytes % (Manual) Seg Neutrophils # Seg Neutrophils # Man Lymphocytes # (Manual) Monocytes # (Manual) APTT POC ABG pH POC ABG pCO2 POC ABG pO2 Sodium Potassium Chloride Carbon Dioxide BUN Creatinine Glucose POC Glucose 113 H 134 H Lactic Acid Calcium Phosphorus Total Bilirubin AST ALT Total Creatine Kinase CK-MB (CK-2) Troponin T Total Protein Albumin HDL Cholesterol Salicylates Acetaminophen 10/23/18 10/23/18 10/23/18 04:38 07:56 11:15 WBC RBC Hgb Hct MCV RDW Plt Count Lymph % (Auto) Cobb % (Auto) Cobb # Seg Neutrophils % Seg Neuts % (Manual) Lymphocytes % (Manual) Monocytes % (Manual) Seg Neutrophils # Seg Neutrophils # Man Lymphocytes # (Manual) Monocytes # (Manual) APTT POC ABG pH POC ABG pCO2 POC ABG pO2 Sodium Potassium Chloride Carbon Dioxide BUN 7 L Creatinine 0.5 L Glucose 150 H POC Glucose 123 H 212 H Lactic Acid Calcium 8.0 L Phosphorus Total Bilirubin AST 55 H ALT Total Creatine Kinase CK-MB (CK-2) Troponin T Total Protein 6.2 L Albumin 2.3 L HDL Cholesterol Salicylates Acetaminophen 10/23/18 10/23/18 10/24/18 16:06 22:01 05:56 WBC 11.8 H RBC 3.64 L Hgb 11.2 L Hct 33.4 L MCV RDW Plt Count 564 H Lymph % (Auto) 11.3 L Cobb % (Auto) Cobb # Seg Neutrophils % 80.2 H Seg Neuts % (Manual) Lymphocytes % (Manual) Monocytes % (Manual) Seg Neutrophils # 9.4 H Seg Neutrophils # Man Lymphocytes # (Manual) Monocytes # (Manual) APTT POC ABG pH POC ABG pCO2 POC ABG pO2 Sodium Potassium Chloride Carbon Dioxide BUN Creatinine Glucose POC Glucose 152 H 235 H Lactic Acid Calcium Phosphorus Total Bilirubin AST ALT Total Creatine Kinase CK-MB (CK-2) Troponin T Total Protein Albumin HDL Cholesterol Salicylates Acetaminophen 10/24/18 10/24/18 10/24/18 05:56 07:52 11:58 WBC RBC Hgb Hct MCV RDW Plt Count Lymph % (Auto) Cobb % (Auto) Cobb # Seg Neutrophils % Seg Neuts % (Manual) Lymphocytes % (Manual) Monocytes % (Manual) Seg Neutrophils # Seg Neutrophils # Man Lymphocytes # (Manual) Monocytes # (Manual) APTT POC ABG pH POC ABG pCO2 POC ABG pO2 Sodium Potassium Chloride Carbon Dioxide BUN Creatinine 0.5 L Glucose 175 H POC Glucose 156 H 238 H Lactic Acid Calcium 8.0 L Phosphorus Total Bilirubin AST 44 H ALT Total Creatine Kinase CK-MB (CK-2) Troponin T Total Protein 6.2 L Albumin 2.4 L HDL Cholesterol Salicylates Acetaminophen 10/24/18 10/24/18 10/25/18 16:20 22:13 07:53 WBC RBC Hgb Hct MCV RDW Plt Count Lymph % (Auto) Cobb % (Auto) Cobb # Seg Neutrophils % Seg Neuts % (Manual) Lymphocytes % (Manual) Monocytes % (Manual) Seg Neutrophils # Seg Neutrophils # Man Lymphocytes # (Manual) Monocytes # (Manual) APTT POC ABG pH POC ABG pCO2 POC ABG pO2 Sodium Potassium Chloride Carbon Dioxide BUN Creatinine Glucose POC Glucose 60 L 261 H 211 H Lactic Acid Calcium Phosphorus Total Bilirubin AST ALT Total Creatine Kinase CK-MB (CK-2) Troponin T Total Protein Albumin HDL Cholesterol Salicylates Acetaminophen 10/25/18 11:03 WBC RBC Hgb Hct MCV RDW Plt Count Lymph % (Auto) Cobb % (Auto) Cobb # Seg Neutrophils % Seg Neuts % (Manual) Lymphocytes % (Manual) Monocytes % (Manual) Seg Neutrophils # Seg Neutrophils # Man Lymphocytes # (Manual) Monocytes # (Manual) APTT POC ABG pH POC ABG pCO2 POC ABG pO2 Sodium Potassium Chloride Carbon Dioxide BUN Creatinine Glucose POC Glucose 137 H Lactic Acid Calcium Phosphorus Total Bilirubin AST ALT Total Creatine Kinase CK-MB (CK-2) Troponin T Total Protein Albumin HDL Cholesterol Salicylates Acetaminophen Allied health notes reviewed: nursing
--- NOTE | 2018-10-25 15:35 | Progress Note ---
Assessment and Plan 58-year-old male with multiple medical issues including multiple strokes status post partial craniectomy in March for prior strokes with bilateral lower extremity ischemia. Plan for angiography tomorrow. 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 May ultimately need fem-fem bypass, left AKA, right TMA. Subjective Date of service: 10/25/18 Principal diagnosis: Ac hypercapnic hypoxemic Resp failure; Drug OD; AE-COPD; NINOSKA; Seizures Interval history: Right forefoot ischemic. Left calf and foot are ischemic. Warm right calf. Left calf cool. Objective - Constitutional Vitals: Vital Signs - 12hr 10/25/18 10/25/18 10/25/18 05:03 06:33 07:03 Temperature 98.1 F Pulse Rate 94 H 97 H 100 H Pulse Rate [ Anterior Bilateral Throughout] Respiratory 18 20 18 Rate Respiratory Rate [Anterior Bilateral Throughout] Blood Pressure 102/56 109/64 O2 Sat by Pulse 91 94 93 Oximetry 10/25/18 10/25/18 10/25/18 08:47 08:57 11:44 Temperature 98.1 F Pulse Rate 106 H Pulse Rate [ 96 H 101 H Anterior Bilateral Throughout] Respiratory 20 Rate Respiratory 20 20 Rate [Anterior Bilateral Throughout] Blood Pressure 110/85 O2 Sat by Pulse 93 92 Oximetry 10/25/18 10/25/18 10/25/18 12:48 14:11 14:21 Temperature Pulse Rate Pulse Rate [ 85 91 H Anterior Bilateral Throughout] Respiratory Rate Respiratory 18 18 Rate [Anterior Bilateral Throughout] Blood Pressure 118/78 O2 Sat by Pulse Oximetry General appearance: Present: no acute distress - EENT Eyes: EOM intact ENT: hearing intact - Respiratory Respiratory effort: normal Extremity abnormal: other (see subjective) - Psychiatric Psychiatric: cooperative - Labs CBC & Chem 7: 10/24/18 05:56 10/24/18 05:56 Labs: Abnormal lab results 10/24/18 10/24/18 10/25/18 Range/Units 16:20 22:13 07:53 POC Glucose 60 L 261 H 211 H (70-105) 10/25/18 Range/Units 11:03 POC Glucose 137 H (70-105) Medications & Allergies - Medications Allergies/Adverse Reactions: Allergies No Known Allergies Allergy (Verified 10/31/14 11:20) Home Medications: Home Medications Medication Instructions Recorded Confirmed Last Taken Type Gabapentin [Neurontin] 90 mg PO Q8HR 04/22/15 04/22/15 04/21/15 History ALPRAZolam [Xanax TAB] 1 mg PO TID PRN #30 tablet 03/28/16 Unknown Rx Albuterol Sulfate [Ventolin HFA] 2 puff IH Q4H PRN #1 hfa.aer.ad 03/28/16 Unknown Rx Ciprofloxacin HCl [Ciprofloxacin 500 mg PO Q12HR #30 tab 03/28/16 Unknown Rx TAB] Citalopram [celeXA] 10 mg PO QDAY #30 tablet 03/28/16 Unknown Rx Nicotine [Habitrol] 14 mg TD QDAY #30 patch 03/28/16 Unknown Rx Sitagliptin Phos/Metformin HCl 1 tab PO QDAY #30 tbmp.24hr 03/28/16 Unknown Rx [Janumet XR 100-1,000 mg] oxyCODONE /ACETAMINOPHEN [Percocet 1 tab PO Q6H PRN #60 tablet 03/28/16 Unknown Rx 5/325 mg] Active Medications: Generic Name Dose Route Start Last Admin Trade Name Freq PRN Reason Stop Dose Admin Acetaminophen 650 mg 10/11/18 04:04 10/21/18 22:21 Tylenol PO 650 mg Q4H PRN Administration Pain MILD(1-3)/Fever >100.5/HOLLINS Acetaminophen 650 mg 10/18/18 11:53 Tylenol WI Q4H PRN Pain, Mild(1-3)/Fever>100.5/HOLLINS Albuterol 2.5 mg 10/19/18 00:54 Proventil IH Q4HRT PRN Shortness Of Breath Albuterol/Ipratropium 1 ampul 10/19/18 08:00 10/25/18 14:11 Duoneb *Not For Prn Use* IH 1 ampul TIDRT ISAAC Administration Alprazolam 1 mg 10/20/18 13:06 10/25/18 12:48 Xanax PO 1 mg TID PRN Administration Anxiety Lipase/Protease/Amylase 1 each 10/18/18 13:43 Pancresolo Mcgrath 10,500 Unit FEEDTUBE PRN PRN For Clogged Feeding Tube Aspirin 325 mg 10/13/18 10:00 10/25/18 12:41 Aspirin PO Not Given QDAY ISAAC Citalopram Hydrobromide 10 mg 10/21/18 10:00 10/25/18 12:45 Celexa PO 10 mg QDAY ISAAC Administration Dextrose 0 ml 10/11/18 03:57 10/11/18 10:18 D50w (25gm) Syringe IV 10 ml PRN PRN Administration Hypoglycemia Enoxaparin Sodium 40 mg 10/18/18 22:00 10/24/18 21:21 Lovenox SUB-Q 40 mg QDAY@2200 ISAAC Administration Famotidine 20 mg 10/15/18 10:00 10/25/18 12:46 Pepcid PO 20 mg BID ISAAC Administration Hydromorphone HCl 0.5 mg 10/18/18 15:40 10/25/18 12:39 Dilaudid IV 0.5 mg Q3H PRN Administration Pain , Severe (7-10) Hydrophilic Ointment 1 applic 10/11/18 14:00 Vaseline Lip Therapy TP Q2HR PRN Dry Lips Insulin Human Regular 0 units 10/17/18 11:30 10/25/18 12:45 Humulin R SUB-Q Not Given ACHS [facility] Protocol Metoprolol Tartrate 25 mg 10/18/18 22:00 10/25/18 12:48 Lopressor PO 25 mg BID ISAAC Administration Metoprolol Tartrate 2.5 mg 10/18/18 18:51 10/18/18 22:19 Lopressor IV 2.5 mg Q6H PRN Administration Tachyarrhythmias Multi-Ingred Cream/Lotion/Oil/Oint 1 applic 10/11/18 14:00 Artificial Tears Ophth Oint OU Q4HR PRN Dry Eye(s) Ondansetron HCl 4 mg 10/11/18 04:04 Zofran IV Q8H PRN Nausea And Vomiting Oxycodone/Acetaminophen 1 tab 10/18/18 13:45 10/25/18 15:18 Percocet 5/325 PO 1 tab Q6H PRN Administration Pain, Moderate (4-6) Quetiapine Fumarate 200 mg 10/14/18 22:00 10/24/18 22:57 Seroquel PO 200 mg QHS ISAAC Administration Sodium Bicarbonate 325 mg 10/18/18 13:43 Sodium Bicarbonate FEEDTUBE PRN PRN For Clogged Feeding Tube
[2018-10-25] MEDS: LOVENOX SUB-Q SCH (21:59)
[2018-10-26] MEDS: HumuLIN R SUB-Q SCH ×5 (00:31→22:44)
[2018-10-26] MEDS: DILAUDID IV PRN ×5 (06:15→22:19)
[2018-10-26] MEDS ORDERED: NACL 0.9% 500 ML 500 ML ONE (07:46)
[2018-10-26] MEDS ORDERED: NACL 0.9% 500 ML 500 ML IV SCH (08:00)
[2018-10-26] MEDS ORDERED: HEPARIN/NS 5000 UNIT/500ML(CATH LAB) 500 ML IR ONE (08:11)
[2018-10-26] MEDS ORDERED: HEPARIN 10,000 UNITS/10 ML ONE ×2 (08:11→08:38)
[2018-10-26] MEDS ORDERED: VERSED ONE (08:12)
[2018-10-26] MEDS ORDERED: SUBLIMAZE ONE (08:12)
[2018-10-26] MEDS ORDERED: XYLOCAINE 2% INFILTRATI ONE (08:12)
[2018-10-26] MEDS ORDERED: CALAN ONE (08:38)
[2018-10-26] MEDS ORDERED: NITROGLYCERIN SYRINGE 3 ML ONE (08:38)
[2018-10-26] MEDS: DUONEB *Not for PRN Use IH SCH ×3 (08:53→19:14)
--- NOTE | 2018-10-26 09:32 | Operative Report ---
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 Patient with a history of Dilaudid overdose, hypotension and thrombus as well as CVA with inability to anticoagulate Date: 10/26/2018 Procedure: Following an explanation of the risks, benefits and alternatives; written informed consent was obtained. The patient was brought into Suite placed in supine position on the examination table. Initial ultrasound evaluation of his wrist demonstrated a patent left radial artery. The patient's left wrist was prepped and draped in the usual sterile fashion. 1% lidocaine was used for anesthesia. Under ultrasound guidance, a 3-1/2 cm 21-gauge needle was advanced into the left radial artery. A 0.018, was advanced centrally. The needle was removed and a low profile 5 Canadian sheath placed over the guidewire. The trocar and guidewire were removed. A 4 Canadian for tubal Kathern 0.035 guidewire was then manipulated through the sheath. Under fluoroscopy, the catheter guidewire were advanced to the distal abdominal aorta. The vertebral catheter was exchanged for an elective left catheter. Angiography was performed which demonstrates a patent mid and distal abdominal aorta. Thrombus is identified just proximal to the bifurcation within the abdominal aorta. Runoff of the aorta with bilateral lower extremity runoff was performed. This demonstrates thrombus within the distal abdominal aorta just proximal to the bifurcation. There is occlusion of the right common iliac artery with reconstitution of the mid and distal right common femoral artery. The right profunda and SFA are widely patent. Right popliteal artery is patent. There is 2 vessel runoff to the foot on the right with dominant right posterior tibial artery. On the left, the left common iliac, external iliac and common femoral arteries are patent. The left superficial femoral artery is patent. There is thrombus within the distal aspect of the left profunda. There is thrombus within the P2 segment of the popliteal artery with nonvisualization of the tibial vessels. Collaterals extending distally. No flow to the foot is identified. The 0.035 guidewire was advanced through the Omni flush catheter and together the catheter guidewire removed. Sheath was removed and hemostasis achieved using manual compression and a TR band. A sterile dressing was then applied. The patient tolerated the procedure well. There were no immediate post procedure complications. Versed was given for anxiolysis secondary to patient's hypotension. No conscious sedation was utilized. Continuous cardiopulmonary monitoring was utilized. Impression: 1) Bilateral lower extremity angiography from a left radial artery approach area image vessels include the mid and distal abdominal aorta, bilateral common iliac arteries, bilateral external iliac arteries, bilateral common femoral arteries, bilateral SFA, bilateral under, bilateral popliteal arteries and tibial vessels is indicated. 2) Occlusion with thrombus of the right external iliac artery with reconstitution of the right common femoral artery. 3) Occlusion with thrombusof the left popliteal artery with nonvisualization of the tibial vessels. Occlusion with thrombus of the distal profunda.
--- NOTE | 2018-10-26 10:24 | Progress Note ---
Assessment and Plan The patient will require interventions and ultimately amputation. The patient will need to be able to be fully anticoagulated prior to this. Awaiting neurology clearance prior to the initiation of anticoagulation. Subjective Date of service: 10/26/18 Principal diagnosis: Ac hypercapnic hypoxemic Resp failure; Drug OD; AE-COPD; NINOSKA; Seizures Interval history: The patient with a history of cardioembolic event. Thrombus was noted in the left atrial appendage on the CTA of the chest dated 10/11/2018. This thrombus had resolved on echocardiogram performed 2 days later. The thrombus is also identified within the distal abdominal aorta just proximal to the iliac bifurcation. Patient has occlusion of the right external iliac artery and left popliteal artery. He has dry gangrene from the mid calf distally on the left as well as gangrene from the metatarsals distally on the right. Objective - Constitutional Vitals: Vital Signs - 12hr 10/26/18 10/26/18 10/26/18 00:33 06:24 07:51 Temperature 97.8 F 98.9 F 98.1 F Pulse Rate 109 H 100 H Respiratory 20 20 18 Rate Blood Pressure 96/60 94/55 Blood Pressure 92/45 [Right] O2 Sat by Pulse 88 97 Oximetry General appearance: Present: no acute distress - EENT Eyes: EOM intact ENT: hearing intact - Neck Neck: supple - Respiratory Respiratory effort: normal - Breasts Breasts: deferred Extremities: abnormal - Gastrointestinal General gastrointestinal: Present: deferred Rectal Exam: deferred - Genitourinary Male genitourinary: deferred - Psychiatric Psychiatric: cooperative - Labs CBC & Chem 7: 10/24/18 05:56 10/24/18 05:56 Labs: Abnormal lab results 10/25/18 10/25/18 10/25/18 Range/Units 11:03 16:02 22:45 POC Glucose 137 H 186 H 140 H (70-105) 10/26/18 10/26/18 Range/Units 08:13 10:08 POC Glucose 144 H 110 H (70-105) Medications & Allergies - Medications Allergies/Adverse Reactions: Allergies No Known Allergies Allergy (Verified 10/31/14 11:20) Home Medications: Home Medications Medication Instructions Recorded Confirmed Last Taken Type Gabapentin [Neurontin] 90 mg PO Q8HR 04/22/15 04/22/15 04/21/15 History ALPRAZolam [Xanax TAB] 1 mg PO TID PRN #30 tablet 03/28/16 Unknown Rx Albuterol Sulfate [Ventolin HFA] 2 puff IH Q4H PRN #1 hfa.aer.ad 03/28/16 Unknown Rx Ciprofloxacin HCl [Ciprofloxacin 500 mg PO Q12HR #30 tab 03/28/16 Unknown Rx TAB] Citalopram [celeXA] 10 mg PO QDAY #30 tablet 03/28/16 Unknown Rx Nicotine [Habitrol] 14 mg TD QDAY #30 patch 03/28/16 Unknown Rx Sitagliptin Phos/Metformin HCl 1 tab PO QDAY #30 tbmp.24hr 03/28/16 Unknown Rx [Janumet XR 100-1,000 mg] oxyCODONE /ACETAMINOPHEN [Percocet 1 tab PO Q6H PRN #60 tablet 03/28/16 Unknown Rx 5/325 mg] Active Medications: Generic Name Dose Route Start Last Admin Trade Name Freq PRN Reason Stop Dose Admin Acetaminophen 650 mg 10/11/18 04:04 10/21/18 22:21 Tylenol PO 650 mg Q4H PRN Administration Pain MILD(1-3)/Fever >100.5/HOLLINS Acetaminophen 650 mg 10/18/18 11:53 Tylenol [place] Q4H PRN Pain, Mild(1-3)/Fever>100.5/HOLLINS Albuterol 2.5 mg 10/19/18 00:54 Proventil IH Q4HRT PRN Shortness Of Breath Albuterol/Ipratropium 1 ampul 10/19/18 08:00 10/26/18 08:53 Duoneb *Not For Prn Use* IH Not Given TIDRT ISAAC Alprazolam 1 mg 10/20/18 13:06 10/25/18 12:48 Xanax PO 1 mg TID PRN Administration Anxiety Lipase/Protease/Amylase 1 each 10/18/18 13:[address] 10,500 Unit FEEDTUBE PRN PRN For Clogged Feeding Tube Aspirin 325 mg 10/13/18 10:00 10/25/18 12:41 Aspirin PO Not Given QDAY ISAAC Citalopram Hydrobromide 10 mg 10/21/18 10:00 10/25/18 12:45 Celexa PO 10 mg QDAY ISAAC Administration Dextrose 0 ml 10/11/18 03:57 10/11/18 10:18 D50w (25gm) Syringe IV 10 ml PRN PRN Administration Hypoglycemia Enoxaparin Sodium 40 mg 10/18/18 22:00 10/25/18 21:59 Lovenox SUB-Q 40 mg QDAY@2200 ISAAC Administration Famotidine 20 mg 10/15/18 10:00 10/25/18 21:58 Pepcid PO 20 mg BID [facility] Administration Hydromorphone HCl 0.5 mg 10/18/18 15:40 10/26/18 06:15 Dilaudid IV 0.5 mg Q3H PRN Administration Pain , Severe (7-10) Hydrophilic Ointment 1 applic 10/11/18 14:00 Vaseline Lip Therapy TP Q2HR PRN Dry Lips Sodium Chloride 500 mls @ 50 mls/hr 10/26/18 08:00 Nacl 0.9% 500 Ml IV DIRECT [facility] Insulin Human Regular 0 units 10/17/18 11:30 10/26/18 00:31 Humulin R SUB-Q Not Given ACHS [facility] Protocol Metoprolol Tartrate 25 mg 10/18/18 22:00 10/25/18 21:58 Lopressor PO 25 mg BID [facility] Administration Metoprolol Tartrate 2.5 mg 10/18/18 18:51 10/18/18 22:19 Lopressor IV 2.5 mg Q6H PRN Administration Tachyarrhythmias Multi-Ingred Cream/Lotion/Oil/Oint 1 applic 10/11/18 14:00 Artificial Tears Ophth Oint OU Q4HR PRN Dry Eye(s) Ondansetron HCl 4 mg 10/11/18 04:04 Zofran IV Q8H PRN Nausea And Vomiting Oxycodone/Acetaminophen 1 tab 10/18/18 13:45 10/25/18 15:18 Percocet 5/325 PO 1 tab Q6H PRN Administration Pain, Moderate (4-6) Quetiapine Fumarate 200 mg 10/14/18 22:00 10/25/18 21:58 Seroquel PO 200 mg QHS [facility] Administration Sodium Bicarbonate 325 mg 10/18/18 13:43 Sodium Bicarbonate FEEDTUBE PRN PRN For Clogged Feeding Tube
[2018-10-26] MEDS: PERCOCET 5/325 PO PRN (10:35)
[2018-10-26] MEDS: LOPRESSOR PO SCH ×2 (10:37→23:02)
[2018-10-26] MEDS: PEPCID PO SCH ×2 (10:43→22:19)
[2018-10-26] MEDS: celeXA PO SCH (10:43)
[2018-10-26] MEDS: XANAX PO PRN ×2 (10:46→20:59)
--- NOTE | 2018-10-26 13:10 | Progress Note ---
Assessment and Plan Assessment and plan: --Bilateral lower extremity PVD with gangrene left greater than right. --Acute thrombus in bilateral lower extremities, 10/13/18 LE arterial doppler Bilateral lower extremity angiogram revealed: Occlusion with thrombus of the right external iliac artery with reconstitution of the right common femoral artery. Occlusion with thrombusof the left popliteal artery with nonvisualization of the tibial vessels. Occlusion with thrombus of the distal profunda. Vascular surgery reports that the patient will require interventions and ultimately amputation. The patient will need to be able to be fully anti coagulated prior to these interventions. I discussed the case with neurology. Dr. huggins reports clearance for anticoagulation given that the patient is 21 days from his CVA. Therefore, we will start eliquis 5 mg twice a day. (Indication with A. fib.) --acute/subacute right FT CVA Initial CT head, no acute finding, 10/13/18 found to have left-sided weakness MRI brain showed numerous acute/subacute multilobar infarcts involving the cerebrum and cerebellum including Hemorrhagic transformation of the right frontal and biparietal lobes was Not a candidate for tPA, monitor off aspirin per teleneurology QUIQUE ; no thrombus or shunt, Speech recommended pureed diet --Severe sepsis with shock; present on admission Probably due to aspiration pneumonia, completed total 7 days of antibiotics off pressors --Paroxysmal atrial fibrillation. Eliquis 5MG twice a day --LLL pneumonia : completed treatment --Acute respiratory failure with hypoxia and hypercapnia: Requiring intubation, extubated, nebs , supplemental O2 as needed --Hyperglycemia:cont SSI for now, diabetic diet --Acute toxic/metabolic encephalopathy, improved --Seizure; seizure precautions, no new episodes of seizure Ativan when necessary, neurology did not recommend antiepileptic medications --Elevated troponin/NSTEMI type 2 Echocardiogram for further evaluation - Ef 25-30% Cardiology consulted, medical Mx for now, --Acute systolic CHF, Ef 25-30%, anti-failure medications --ARF, due to vasomotor nephropathy, resolved --Hyperkalemia, resolved --Abnormal LFT Probably due to sepsis and chronic hepatitis C virus infection Abdominal US showed no sign of cirrhosis --Severe protein calorie malnutrition; nutrition supplements Dietitian consulted --DVT prophylaxis with heparin and GI prophylaxis with famotidine --Tobacco abuse. Patient with a long smoking history of one pack per day or more since age 9. Patient was counseled on smoking cessation. Disposition: Patient is to transfer to SNF for approximately 2 weeks then have scheduled procedures by vascular surgery as noted above. I will discuss with case management. History Interval history: No new issues overnight. Hospitalist Physical - Constitutional Vitals: Temp Pulse Resp BP Pulse Ox 98.1 F 101 H 18 106/63 91 10/26/18 12:02 10/26/18 12:02 10/26/18 12:02 10/26/18 12:02 10/26/18 12:02 General appearance: Present: no acute distress - EENT Eyes: Present: PERRL, EOM intact ENT: hearing intact, clear oral mucosa, dentition normal - Neck Neck: Present: supple, normal ROM - Respiratory Respiratory effort: normal Respiratory: bilateral: CTA - Cardiovascular Rhythm: regular Heart Sounds: Present: S1 & S2. Absent: gallop, rub - Extremities Extremities: no ischemia, No edema, Full ROM - Abdominal General gastrointestinal: soft, non-tender, non-distended, normal bowel sounds - Integumentary Integumentary: Present: clear, warm, dry - Neurologic Neurologic: CNII-XII intact, moves all extremities Results - Labs CBC & Chem 7: 10/24/18 05:56 10/24/18 05:56 Labs: Laboratory Last Values WBC 11.8 K/mm3 (4.5-11.0) H 10/24/18 05:56 RBC 3.64 M/mm3 (3.65-5.03) L 10/24/18 05:56 Hgb 11.2 gm/dl (11.8-15.2) L 10/24/18 05:56 Hct 33.4 % (35.5-45.6) L 10/24/18 05:56 MCV 92 fl (84-94) 10/24/18 05:56 MCH 31 pg (28-32) 10/24/18 05:56 MCHC 34 % (32-34) 10/24/18 05:56 RDW 14.2 % (13.2-15.2) 10/24/18 05:56 Plt Count 564 K/mm3 (140-440) H 10/24/18 05:56 Lymph % (Auto) 11.3 % (13.4-35.0) L 10/24/18 05:56 [place] % (Auto) 7.1 % (0.0-7.3) 10/24/18 05:56 Eos % (Auto) 1.0 % (0.0-4.3) 10/24/18 05:56 Baso % (Auto) 0.4 % (0.0-1.8) 10/24/18 05:56 Lymph # 1.3 K/mm3 (1.2-5.4) 10/24/18 05:56 [place] # 0.8 K/mm3 (0.0-0.8) 10/24/18 05:56 Eos # 0.1 K/mm3 (0.0-0.4) 10/24/18 05:56 Baso # 0.0 K/mm3 (0.0-0.1) 10/24/18 05:56 Add Manual Diff Complete 10/12/18 04:04 Total Counted 100 10/12/18 04:04 Seg Neutrophils % 80.2 % (40.0-70.0) H 10/24/18 05:56 Seg Neuts % (Manual) 32.0 % (40.0-70.0) L 10/12/18 04:04 39.0 % 10/12/18 04:04 19.0 % (13.4-35.0) 10/12/18 04:04 Reactive Lymphs % (Man) 0 % 10/12/18 04:04 8.0 % (0.0-7.3) H 10/12/18 04:04 0 % (0.0-4.3) 10/12/18 04:04 0 % (0.0-1.8) 10/12/18 04:04 2.0 % 10/12/18 04:04 0 % 10/12/18 04:04 0 % 10/12/18 04:04 0 % 10/12/18 04:04 Nucleated RBC % Not Reportable 10/12/18 04:04 Seg Neutrophils # 9.4 K/mm3 (1.8-7.7) H 10/24/18 05:56 Seg Neutrophils # Man 7.8 K/mm3 (1.8-7.7) H 10/12/18 04:04 Band Neutrophils # 9.5 K/mm3 10/12/18 04:04 4.6 K/mm3 (1.2-5.4) 10/12/18 04:04 Abs React Lymphs (Man) 0.0 K/mm3 10/12/18 04:04 2.0 K/mm3 (0.0-0.8) H 10/12/18 04:04 0.0 K/mm3 (0.0-0.4) 10/12/18 04:04 0.0 K/mm3 (0.0-0.1) 10/12/18 04:04 0.5 K/mm3 10/12/18 04:04 0.0 K/mm3 10/12/18 04:04 0.0 K/mm3 10/12/18 04:04 Blast Cells # 0.0 K/mm3 10/12/18 04:04 Pathologist Review 10/11/18 00:16 WBC Morphology Not Reportable 10/12/18 04:04 Hypersegmented Neuts Not Reportable 10/12/18 04:04 Hyposegmented Neuts Not Reportable 10/12/18 04:04 Hypogranular Neuts Not Reportable 10/12/18 04:04 Not Reportable 10/12/18 04:04 Not Reportable 10/12/18 04:04 Not Reportable 10/12/18 04:04 Not Reportable 10/12/18 04:04 Not Reportable 10/12/18 04:04 Not Reportable 10/12/18 04:04 Appears normal 10/12/18 04:04 Not Reportable 10/12/18 04:04 Plt Clumps, EDTA Not Reportable 10/12/18 04:04 Not Reportable 10/12/18 04:04 Not Reportable 10/12/18 04:04 Not Reportable 10/12/18 04:04 Plt Morphology Comment Not Reportable 10/12/18 04:04 RBC Morphology Not Reportable 10/12/18 04:04 Dimorphic RBCs Not Reportable 10/12/18 04:04 Not Reportable 10/12/18 04:04 Not Reportable 10/12/18 04:04 Not Reportable 10/12/18 04:04 1+ 10/12/18 04:04 Not Reportable 10/12/18 04:04 Not Reportable 10/12/18 04:04 Not Reportable 10/12/18 04:04 Not Reportable 10/12/18 04:04 Not Reportable 10/12/18 04:04 Not Reportable 10/12/18 04:04 Not Reportable 10/12/18 04:04 Not Reportable 10/12/18 04:04 Not Reportable 10/12/18 04:04 Not Reportable 10/12/18 04:04 Not Reportable 10/12/18 04:04 Not Reportable 10/12/18 04:04 Not Reportable 10/12/18 04:04 Not Reportable 10/12/18 04:04 Not Reportable 10/12/18 04:04 Acanthocytes (Spur) Not Reportable 10/12/18 04:04 Rouleaux Not Reportable 10/12/18 04:04 Not Reportable 10/12/18 04:04 Not Reportable 10/12/18 04:04 Not Reportable 10/12/18 04:04 Not Reportable 10/12/18 04:04 Hem Pathologist Commnt No 10/12/18 04:04 PT 13.5 Sec. (12.2-14.9) 10/23/18 04:38 INR 0.97 (0.87-1.13) 10/23/18 04:38 APTT 24.1 Sec. (24.2-36.6) L 10/11/18 08:29 Heparin Anti-Xa, Unfract Negative (Negative) 10/15/18 12:00 POC ABG pH 7.393 (7.35-7.45) 10/16/18 12:51 POC ABG pCO2 48.9 (35-45) H 10/16/18 12:51 POC ABG pO2 92 (80-105) 10/16/18 12:51 POC ABG HCO3 29.8 (22-26 mml/L) 10/16/18 12:51 POC ABG Total CO2 31 (23-27mmol/L) 10/16/18 12:51 POC ABG O2 Sat 97 10/16/18 12:51 POC ABG Base Excess 5 ((-2) - (+3)mmol/L) 10/16/18 12:51 35 % 10/16/18 12:51 Sodium 138 mmol/L (137-145) 10/24/18 05:56 Potassium 4.4 mmol/L (3.6-5.0) 10/24/18 05:56 Chloride 102.0 mmol/L (98-107) 10/24/18 05:56 Carbon Dioxide 29 mmol/L (22-30) 10/24/18 05:56 11 mmol/L 10/24/18 05:56 BUN 9 mg/dL (9-20) 10/24/18 05:56 0.5 mg/dL (0.8-1.5) L 10/24/18 05:56 Estimated GFR > 60 ml/min 10/24/18 05:56 18 % 10/24/18 05:56 Glucose 175 mg/dL (75-100) H 10/24/18 05:56 POC Glucose 201 (70-105) H 10/26/18 11:28 Lactic Acid 2.70 mmol/L (0.7-2.0) H* 10/11/18 12:30 Calcium 8.0 mg/dL (8.4-10.2) L 10/24/18 05:56 Phosphorus 2.80 mg/dL (2.5-4.5) 10/21/18 04:59 Magnesium 1.90 mg/dL (1.7-2.3) 10/21/18 04:59 0.30 mg/dL (0.1-1.2) 10/24/18 05:56 AST 44 units/L (5-40) H 10/24/18 05:56 ALT 40 units/L (7-56) 10/24/18 05:56 57 units/L (35-129) 10/24/18 05:56 3647 units/L (55-170) H 10/12/18 04:04 CK-MB (CK-2) 48.3 ng/mL (0.0-4.0) H 10/12/18 04:04 CK-MB (CK-2) Rel Index 1.3 (0-4) 10/12/18 04:04 0.816 ng/mL (0.00-0.029) H* 10/13/18 16:15 6.2 g/dL (6.3-8.2) L 10/24/18 05:56 2.4 g/dL (3.9-5) L 10/24/18 05:56 0.6 % 10/24/18 05:56 Triglycerides 87 mg/dL (2-149) 10/11/18 00:16 Cholesterol 73 mg/dL (50-199) 10/11/18 00:16 51 mg/dL (50-130) 10/11/18 00:16 19 mg/dL (40-59) L 10/11/18 00:16 3.84 % 10/11/18 00:16 See scanned report 10/15/18 12:00 Yellow (Yellow) 10/11/18 01:42 Cloudy (Clear) 10/11/18 01:42 6.0 (5.0-7.0) 10/11/18 01:42 Ur Specific [place] 1.011 (1.003-1.030) 10/11/18 01:42 100 mg/dl mg/dL (Negative) 10/11/18 01:42 >=500 mg/dL (Negative) 10/11/18 01:42 Neg mg/dL (Negative) 10/11/18 01:42 Mod (Negative) 10/11/18 01:42 Neg (Negative) 10/11/18 01:42 Neg (Negative) 10/11/18 01:42 4.0 mg/dL (<2.0) 10/11/18 01:42 Ur Leukocyte Esterase Neg (Negative) 10/11/18 01:42 5.0 /HPF (0.0-6.0) 10/11/18 01:42 2.0 /HPF (0.0-6.0) 10/11/18 01:42 U Epithel Cells (Auto) < 1.0 /HPF (0-13.0) 10/11/18 01:42 Amorphous Crystals 1+ 10/11/18 01:42 Few /HPF 10/11/18 01:42 2+ /HPF (BACTERIOLOGY PROFESSOR) 10/11/18 01:42 Vancomycin Trough 8.3 ug/mL (5.0-20.0) 10/13/18 05:40 Salicylates < 0.3 mg/dL (2.8-20.0) L 10/11/18 00:16 Presumptive positive 10/11/18 01:42 Presumptive negative 10/11/18 01:42 Acetaminophen < 5.0 ug/mL (10.0-30.0) L 10/11/18 00:16 Ur Barbiturates Screen Presumptive negative 10/11/18 01:42 Ur Phencyclidine Scrn Presumptive negative 10/11/18 01:42 Ur Amphetamines Screen Presumptive positive 10/11/18 01:42 U Benzodiazepines Scrn Presumptive positive 10/11/18 01:42 Presumptive negative 10/11/18 01:42 U Marijuana (THC) Screen Presumptive negative 10/11/18 01:42 Disclamer 10/11/18 01:42 Plasma/Serum Alcohol < 0.01 % (0-0.07) 10/11/18 00:16 Heparin-induced Plt Ab Negative (Negative) 10/15/18 12:00 UF Heparin High Dose 0 % Release 10/15/18 12:00 AURELIO UFH Low Dose 0.1 0 % Release 10/15/18 12:00 AURELIO UFH Low Dose 0.5 0 % Release 10/15/18 12:00 Active Medications - Current Medications Current Medications: Generic Name Dose Route Start Last Admin Trade Name Freq PRN Reason Stop Dose Admin Acetaminophen 650 mg 10/11/18 04:04 10/21/18 22:21 Tylenol PO 650 mg Q4H PRN Administration Pain MILD(1-3)/Fever >100.5/HOLLINS Acetaminophen 650 mg 10/18/18 11:53 Tylenol [place] Q4H PRN Pain, Mild(1-3)/Fever>100.5/HOLLINS Albuterol 2.5 mg 10/19/18 00:54 Proventil IH Q4HRT PRN Shortness Of Breath Albuterol/Ipratropium 1 ampul 10/19/18 08:00 10/26/18 08:53 Duoneb *Not For Prn Use* IH Not Given TIDRT [facility] Alprazolam 1 mg 10/20/18 13:06 10/26/18 10:46 Xanax PO 1 mg TID PRN Administration Anxiety Lipase/Protease/Amylase 1 each 10/18/18 13:43 Pancreaze 10,500 Unit FEEDTUBE PRN PRN For Clogged Feeding Tube Apixaban 5 mg 10/26/18 22:00 Eliquis PO Q12HR [facility] Protocol Citalopram Hydrobromide 10 mg 10/21/18 10:00 10/26/18 10:43 Celexa PO 10 mg QDAY ISAAC Administration Dextrose 0 ml 10/11/18 03:57 10/11/18 10:18 D50w (25gm) Syringe IV 10 ml PRN PRN Administration Hypoglycemia Enoxaparin Sodium 40 mg 10/18/18 22:00 10/25/18 21:59 Lovenox SUB-Q 40 mg QDAY@2200 ISAAC Administration Famotidine 20 mg 10/15/18 10:00 10/26/18 10:43 Pepcid PO 20 mg BID [facility] Administration Hydromorphone HCl 0.5 mg 10/18/18 15:40 10/26/18 12:09 Dilaudid IV 0.5 mg Q3H PRN Administration Pain , Severe (7-10) Hydrophilic Ointment 1 applic 10/11/18 14:00 Vaseline Lip Therapy TP Q2HR PRN Dry Lips Sodium Chloride 500 mls @ 50 mls/hr 10/26/18 08:00 Nacl 0.9% 500 Ml IV DIRECT [facility] Insulin Human Regular 0 units 10/17/18 11:30 10/26/18 10:34 Humulin R SUB-Q Not Given ACHS [facility] Protocol Metoprolol Tartrate 25 mg 10/18/18 22:00 10/26/18 10:37 Lopressor PO Not Given BID [facility] Metoprolol Tartrate 2.5 mg 10/18/18 18:51 10/18/18 22:19 Lopressor IV 2.5 mg Q6H PRN Administration Tachyarrhythmias Multi-Ingred Cream/Lotion/Oil/Oint 1 applic 10/11/18 14:00 Artificial Tears Ophth Oint OU Q4HR PRN Dry Eye(s) Ondansetron HCl 4 mg 10/11/18 04:04 Zofran IV Q8H PRN Nausea And Vomiting Oxycodone/Acetaminophen 1 tab 10/18/18 13:45 10/26/18 10:35 Percocet 5/325 PO 1 tab Q6H PRN Administration Pain, Moderate (4-6) Quetiapine Fumarate 200 mg 10/14/18 22:00 10/25/18 21:58 Seroquel PO 200 mg QHS ISAAC Administration Sodium Bicarbonate 325 mg 10/18/18 13:43 Sodium Bicarbonate FEEDTUBE PRN PRN For Clogged Feeding Tube Nutrition/Malnutrition Assess - Dietary Evaluation Nutrition/Malnutrition Findings: Nutrition Notes Start: 10/11/18 12 :39 Freq: Status: Active Protocol: Document 10/25/18 16:48 RM (Rec: 10/25/18 16:52 RM [id number]) Nutrition Notes Initial or Follow up Brief Note Current Diet NPO Subjective/Other Information Pt remains NPO for possible revascularization. Nutrition Intervention Follow-Up By: 10/29/18 Additional Comments Follow for diet advancement, PO and ONS intakes
--- NOTE | 2018-10-26 15:44 | Progress Note ---
Assessment and Plan Acute hypoxemic respiratory failure, on mechanical ventilator support. Drug overdose. Acute chronic obstructive pulmonary disease exacerbation. Witnessed seizure en route. Acute kidney injury. Leukocytosis. Hypercapnia. Hyperkalemia. Metabolic acidosis. Lactic acidosis. Non-ST elevation myocardial infarction. Elevated serum transaminases. - continue ST evaluation; continue to advance diet per ST - follow clinically off AB's - resume full anticoagulation once cleared by neurology - continue bronchodilators with pulmonary hygiene per RT - continue GI & VTE prophylaxis - prn supplemental oxygen to keep O2 sats > 90% - azotemia per nephrology - Continue cardioprotective measures - Replete electrolytes as indicated - Monitor renal indices closely - Avoid nephrotoxic agents, adjust all medications for CrCL - Accuchecks with glycemic control. Target glucose of 140-180 mg/dL - Maintenance of sleep -wake cycle - Mobility protocol for pressure ulcer prophylaxis - Influenza and pneumonia vaccination per protocol ...... re-evaluate in am & prn Subjective Date of service: 10/26/18 Principal diagnosis: Ac hypercapnic hypoxemic Resp failure; Drug OD; AE-COPD; NINOSKA; Seizures Interval history: Patient is seen today for: Acute hypoxemic respiratory failure, on mechanical ventilator support; Drug overdose; Acute chronic obstructive pulmonary disease exacerbation; Witnessed seizure en route; Acute kidney injury; Leukocytosis; Hypercapnia. Seen and examined at bedside; 24-hour events reviewed; nursing and respiratory care staff consulted; no adverse overnight events reported to me; resting peacefully in bed; no gross bleeding; will ultimately need definitive limb surgery; no N/V/F/C; off supplemental oxygen today Objective Vital Signs - 12hr 10/26/18 10/26/18 10/26/18 06:24 07:51 09:49 Temperature 98.9 F 98.1 F Pulse Rate 100 H 78 Pulse Rate [ Anterior Bilateral Throughout] Pulse Rate [ Bilateral] Respiratory 20 18 16 Rate Respiratory Rate [Anterior Bilateral Throughout] Respiratory Rate [Bilateral ] Blood Pressure 94/55 Blood Pressure 92/45 [Right] O2 Sat by Pulse 97 97 Oximetry 10/26/18 10/26/18 10/26/18 10:26 10:37 12:02 Temperature 98.1 F Pulse Rate 94 H 101 H Pulse Rate [ Anterior Bilateral Throughout] Pulse Rate [ Bilateral] Respiratory 18 Rate Respiratory Rate [Anterior Bilateral Throughout] Respiratory Rate [Bilateral ] Blood Pressure 99/65 99/55 106/63 Blood Pressure [Right] O2 Sat by Pulse 91 Oximetry 10/26/18 10/26/18 10/26/18 13:42 13:49 14:59 Temperature Pulse Rate Pulse Rate [ 95 H 92 H Anterior Bilateral Throughout] Pulse Rate [ 95 H 92 H Bilateral] Respiratory Rate Respiratory 20 20 Rate [Anterior Bilateral Throughout] Respiratory 20 20 Rate [Bilateral ] Blood Pressure 114/66 Blood Pressure [Right] O2 Sat by Pulse Oximetry Constitutional: no acute distress, other (middle aged but chronically ill looking CM; Atraumatic) Eyes: non-icteric ENT: oropharynx moist, other (mallampati 2) Neck: supple, no lymphadenopathy, no JVD Effort: normal Ascultation: Bilateral: diminished breath sounds, rhonchi Percussion: Bilateral: not dull Cardiovascular: irregular rhythm, other (No R/M) Gastrointestinal: normoactive bowel sounds, soft, non-tender, non-distended Integumentary: other (poor turgor) Extremities: no edema, no ischemia or petechiae, other (cool left leg campbell-down; with digital gangrene of left foot also) Neurologic: normal mental status, pupils equal and round, other (Left hemiparesis, improving) Psychiatric: mood appropriate, affect normal CBC and BMP: 11/06/18 07:00 11/06/18 07:00 ABG, PT/INR, D-dimer: ABG POC ABG pH 7.393 (7.35-7.45) 10/16/18 12:51 POC ABG pCO2 48.9 (35-45) H 10/16/18 12:51 POC ABG pO2 92 (80-105) 10/16/18 12:51 POC ABG HCO3 29.8 (22-26 mml/L) 10/16/18 12:51 POC ABG Total CO2 31 (23-27mmol/L) 10/16/18 12:51 POC ABG O2 Sat 97 10/16/18 12:51 PT/INR, D-dimer PT 13.5 Sec. (12.2-14.9) 10/23/18 04:38 INR 0.97 (0.87-1.13) 10/23/18 04:38 Abnormal lab findings: Abnormal Labs 10/11/18 10/11/18 10/11/18 00:16 00:16 00:16 WBC 20.1 H RBC Hgb Hct MCV 98 H RDW 15.4 H Plt Count Lymph % (Auto) [place] % (Auto) [place] # Seg Neutrophils % Seg Neuts % (Manual) Lymphocytes % (Manual) 5.0 L Monocytes % (Manual) 25.0 H Seg Neutrophils # Seg Neutrophils # Man 9.2 H Lymphocytes # (Manual) 1.0 L Monocytes # (Manual) 5.0 H APTT POC ABG pH POC ABG pCO2 POC ABG pO2 Sodium Potassium 5.8 H Chloride Carbon Dioxide 17 L BUN Creatinine 2.2 H Glucose 348 H POC Glucose Lactic Acid 13.70 H* Calcium 7.7 L Phosphorus Total Bilirubin 1.50 H AST 179 H ALT 110 H Total Creatine Kinase 324 H CK-MB (CK-2) Troponin T 0.257 H* Total Protein 5.9 L Albumin 2.9 L HDL Cholesterol 19 L Salicylates Acetaminophen 10/11/18 10/11/18 10/11/18 00:16 00:16 01:21 WBC RBC Hgb Hct MCV RDW Plt Count Lymph % (Auto) [place] % (Auto) [place] # Seg Neutrophils % Seg Neuts % (Manual) Lymphocytes % (Manual) Monocytes % (Manual) Seg Neutrophils # Seg Neutrophils # Man Lymphocytes # (Manual) Monocytes # (Manual) APTT POC ABG pH 7.110 L POC ABG pCO2 50.3 H POC ABG pO2 65 L Sodium Potassium Chloride Carbon Dioxide BUN Creatinine Glucose POC Glucose Lactic Acid Calcium Phosphorus Total Bilirubin AST ALT Total Creatine Kinase CK-MB (CK-2) Troponin T Total Protein Albumin HDL Cholesterol Salicylates < 0.3 L Acetaminophen < 5.0 L 10/11/18 10/11/18 10/11/18 01:22 03:27 04:14 WBC RBC Hgb Hct MCV RDW Plt Count Lymph % (Auto) [place] % (Auto) [place] # Seg Neutrophils % Seg Neuts % (Manual) Lymphocytes % (Manual) Monocytes % (Manual) Seg Neutrophils # Seg Neutrophils # Man Lymphocytes # (Manual) Monocytes # (Manual) APTT POC ABG pH POC ABG pCO2 POC ABG pO2 Sodium Potassium Chloride Carbon Dioxide BUN Creatinine Glucose POC Glucose Lactic Acid 8.50 H* 4.10 H* Calcium Phosphorus 4.90 H Total Bilirubin AST ALT Total Creatine Kinase CK-MB (CK-2) Troponin T Total Protein Albumin HDL Cholesterol Salicylates Acetaminophen 10/11/18 10/11/18 10/11/18 04:14 04:14 04:14 WBC RBC Hgb Hct MCV RDW Plt Count Lymph % (Auto) [place] % (Auto) [place] # Seg Neutrophils % Seg Neuts % (Manual) Lymphocytes % (Manual) Monocytes % (Manual) Seg Neutrophils # Seg Neutrophils # Man Lymphocytes # (Manual) Monocytes # (Manual) APTT POC ABG pH POC ABG pCO2 POC ABG pO2 Sodium Potassium 5.6 H Chloride Carbon Dioxide 19 L BUN Creatinine 1.6 H Glucose 329 H POC Glucose 328 H Lactic Acid Calcium 7.3 L Phosphorus Total Bilirubin AST ALT Total Creatine Kinase CK-MB (CK-2) Troponin T 1.130 H* D Total Protein Albumin HDL Cholesterol Salicylates Acetaminophen 10/11/18 10/11/18 10/11/18 05:10 05:32 05:58 WBC RBC Hgb Hct MCV RDW Plt Count Lymph % (Auto) [place] % (Auto) [place] # Seg Neutrophils % Seg Neuts % (Manual) Lymphocytes % (Manual) Monocytes % (Manual) Seg Neutrophils # Seg Neutrophils # Man Lymphocytes # (Manual) Monocytes # (Manual) APTT POC ABG pH 7.259 L POC ABG pCO2 45.6 H POC ABG pO2 Sodium Potassium Chloride 108.6 H Carbon Dioxide 20 L BUN Creatinine 1.8 H Glucose 269 H POC Glucose 273 H Lactic Acid Calcium 7.0 L Phosphorus Total Bilirubin AST ALT Total Creatine Kinase CK-MB (CK-2) Troponin T Total Protein Albumin HDL Cholesterol Salicylates Acetaminophen 10/11/18 10/11/18 10/11/18 05:58 06:39 07:00 WBC RBC Hgb Hct MCV RDW Plt Count Lymph % (Auto) [place] % (Auto) [place] # Seg Neutrophils % Seg Neuts % (Manual) Lymphocytes % (Manual) Monocytes % (Manual) Seg Neutrophils # Seg Neutrophils # Man Lymphocytes # (Manual) Monocytes # (Manual) APTT POC ABG pH POC ABG pCO2 POC ABG pO2 Sodium Potassium Chloride Carbon Dioxide BUN Creatinine Glucose POC Glucose 247 H Lactic Acid 3.20 H* 3.30 H* Calcium Phosphorus Total Bilirubin AST ALT Total Creatine Kinase CK-MB (CK-2) Troponin T Total Protein Albumin HDL Cholesterol Salicylates Acetaminophen 10/11/18 10/11/18 10/11/18 07:00 07:30 07:36 WBC RBC Hgb Hct MCV RDW Plt Count Lymph % (Auto) [place] % (Auto) [place] # Seg Neutrophils % Seg Neuts % (Manual) Lymphocytes % (Manual) Monocytes % (Manual) Seg Neutrophils # Seg Neutrophils # Man Lymphocytes # (Manual) Monocytes # (Manual) APTT POC ABG pH POC ABG pCO2 POC ABG pO2 Sodium 146 H Potassium Chloride 112.1 H Carbon Dioxide 21 L BUN Creatinine 1.6 H Glucose 218 H POC Glucose Lactic Acid 3.20 H* Calcium 7.0 L Phosphorus Total Bilirubin AST ALT Total Creatine Kinase CK-MB (CK-2) Troponin T 1.020 H* Total Protein Albumin HDL Cholesterol Salicylates Acetaminophen 10/11/18 10/11/18 10/11/18 07:43 08:29 08:29 WBC RBC Hgb 16.2 H Hct 49.9 H D MCV RDW Plt Count Lymph % (Auto) [place] % (Auto) [place] # Seg Neutrophils % Seg Neuts % (Manual) Lymphocytes % (Manual) Monocytes % (Manual) Seg Neutrophils # Seg Neutrophils # Man Lymphocytes # (Manual) Monocytes # (Manual) APTT POC ABG pH POC ABG pCO2 POC ABG pO2 Sodium Potassium Chloride Carbon Dioxide BUN Creatinine Glucose POC Glucose 174 H Lactic Acid 3.90 H* Calcium Phosphorus Total Bilirubin AST ALT Total Creatine Kinase CK-MB (CK-2) Troponin T Total Protein Albumin HDL Cholesterol Salicylates Acetaminophen 10/11/18 10/11/18 10/11/18 08:29 08:42 11:05 WBC RBC Hgb Hct MCV RDW Plt Count Lymph % (Auto) [place] % (Auto) [place] # Seg Neutrophils % Seg Neuts % (Manual) Lymphocytes % (Manual) Monocytes % (Manual) Seg Neutrophils # Seg Neutrophils # Man Lymphocytes # (Manual) Monocytes # (Manual) APTT 24.1 L POC ABG pH POC ABG pCO2 POC ABG pO2 Sodium 147 H Potassium Chloride 113.3 H Carbon Dioxide 21 L BUN Creatinine 1.7 H Glucose 119 H POC Glucose 164 H Lactic Acid Calcium 7.7 L Phosphorus Total Bilirubin AST ALT Total Creatine Kinase CK-MB (CK-2) Troponin T Total Protein Albumin HDL Cholesterol Salicylates Acetaminophen 10/11/18 10/11/18 10/11/18 11:05 11:06 12:30 WBC RBC Hgb Hct MCV RDW Plt Count Lymph % (Auto) [place] % (Auto) [place] # Seg Neutrophils % Seg Neuts % (Manual) Lymphocytes % (Manual) Monocytes % (Manual) Seg Neutrophils # Seg Neutrophils # Man Lymphocytes # (Manual) Monocytes # (Manual) APTT POC ABG pH POC ABG pCO2 POC ABG pO2 Sodium 148 H Potassium Chloride 113.4 H Carbon Dioxide 21 L BUN Creatinine 1.6 H Glucose 119 H POC Glucose 116 H Lactic Acid 3.20 H* Calcium 7.5 L Phosphorus Total Bilirubin AST ALT Total Creatine Kinase CK-MB (CK-2) Troponin T Total Protein Albumin HDL Cholesterol Salicylates Acetaminophen 10/11/18 10/11/18 10/11/18 12:30 13:16 13:25 WBC RBC Hgb Hct MCV RDW Plt Count Lymph % (Auto) [place] % (Auto) [place] # Seg Neutrophils % Seg Neuts % (Manual) Lymphocytes % (Manual) Monocytes % (Manual) Seg Neutrophils # Seg Neutrophils # Man Lymphocytes # (Manual) Monocytes # (Manual) APTT POC ABG pH 7.247 L POC ABG pCO2 48.4 H POC ABG pO2 Sodium Potassium Chloride Carbon Dioxide BUN Creatinine Glucose POC Glucose 112 H Lactic Acid 2.70 H* Calcium Phosphorus Total Bilirubin AST ALT Total Creatine Kinase CK-MB (CK-2) Troponin T Total Protein Albumin HDL Cholesterol Salicylates Acetaminophen 10/11/18 10/11/18 10/11/18 14:41 15:27 16:13 WBC RBC Hgb Hct MCV RDW Plt Count Lymph % (Auto) [place] % (Auto) [place] # Seg Neutrophils % Seg Neuts % (Manual) Lymphocytes % (Manual) Monocytes % (Manual) Seg Neutrophils # Seg Neutrophils # Man Lymphocytes # (Manual) Monocytes # (Manual) APTT POC ABG pH POC ABG pCO2 POC ABG pO2 Sodium Potassium Chloride Carbon Dioxide BUN Creatinine Glucose POC Glucose 127 H 141 H 134 H Lactic Acid Calcium Phosphorus Total Bilirubin AST ALT Total Creatine Kinase CK-MB (CK-2) Troponin T Total Protein Albumin HDL Cholesterol Salicylates Acetaminophen 10/11/18 10/11/18 10/11/18 17:18 18:23 19:38 WBC RBC Hgb Hct MCV RDW Plt Count Lymph % (Auto) [place] % (Auto) [place] # Seg Neutrophils % Seg Neuts % (Manual) Lymphocytes % (Manual) Monocytes % (Manual) Seg Neutrophils # Seg Neutrophils # Man Lymphocytes # (Manual) Monocytes # (Manual) APTT POC ABG pH POC ABG pCO2 POC ABG pO2 Sodium 148 H Potassium Chloride 112.7 H Carbon Dioxide BUN 23 H Creatinine Glucose 143 H POC Glucose 132 H 129 H Lactic Acid Calcium 7.9 L Phosphorus Total Bilirubin AST ALT Total Creatine Kinase CK-MB (CK-2) Troponin T Total Protein Albumin HDL Cholesterol Salicylates Acetaminophen 10/11/18 10/11/18 10/11/18 20:19 20:36 21:01 WBC RBC Hgb Hct MCV RDW Plt Count Lymph % (Auto) [place] % (Auto) [place] # Seg Neutrophils % Seg Neuts % (Manual) Lymphocytes % (Manual) Monocytes % (Manual) Seg Neutrophils # Seg Neutrophils # Man Lymphocytes # (Manual) Monocytes # (Manual) APTT POC ABG pH 7.281 L POC ABG pCO2 POC ABG pO2 Sodium Potassium Chloride Carbon Dioxide BUN Creatinine Glucose POC Glucose 129 H 151 H Lactic Acid Calcium Phosphorus Total Bilirubin AST ALT Total Creatine Kinase CK-MB (CK-2) Troponin T Total Protein Albumin HDL Cholesterol Salicylates Acetaminophen 10/11/18 10/11/18 10/12/18 22:04 23:15 01:18 WBC RBC Hgb Hct MCV RDW Plt Count Lymph % (Auto) [place] % (Auto) [place] # Seg Neutrophils % Seg Neuts % (Manual) Lymphocytes % (Manual) Monocytes % (Manual) Seg Neutrophils # Seg Neutrophils # Man Lymphocytes # (Manual) Monocytes # (Manual) APTT POC ABG pH POC ABG pCO2 POC ABG pO2 Sodium Potassium Chloride Carbon Dioxide BUN Creatinine Glucose POC Glucose 147 H 143 H 158 H Lactic Acid Calcium Phosphorus Total Bilirubin AST ALT Total Creatine Kinase CK-MB (CK-2) Troponin T Total Protein Albumin HDL Cholesterol Salicylates Acetaminophen 10/12/18 10/12/18 10/12/18 02:13 03:18 04:04 WBC RBC Hgb Hct MCV RDW Plt Count Lymph % (Auto) [place] % (Auto) [place] # Seg Neutrophils % Seg Neuts % (Manual) Lymphocytes % (Manual) Monocytes % (Manual) Seg Neutrophils # Seg Neutrophils # Man Lymphocytes # (Manual) Monocytes # (Manual) APTT POC ABG pH POC ABG pCO2 POC ABG pO2 Sodium 147 H Potassium Chloride 111.1 H Carbon Dioxide BUN 30 H Creatinine 2.0 H Glucose 154 H POC Glucose 148 H 142 H Lactic Acid Calcium 8.1 L Phosphorus Total Bilirubin AST 269 H ALT 204 H Total Creatine Kinase 3647 H CK-MB (CK-2) 48.3 H Troponin T 2.230 H* D Total Protein 5.8 L Albumin 2.6 L HDL Cholesterol Salicylates Acetaminophen 10/12/18 10/12/18 10/12/18 04:04 04:08 04:19 WBC 24.4 H RBC Hgb Hct MCV RDW Plt Count Lymph % (Auto) [place] % (Auto) [place] # Seg Neutrophils % Seg Neuts % (Manual) 32.0 L Lymphocytes % (Manual) Monocytes % (Manual) 8.0 H Seg Neutrophils # Seg Neutrophils # Man 7.8 H Lymphocytes # (Manual) Monocytes # (Manual) 2.0 H APTT POC ABG pH 7.317 L POC ABG pCO2 49.3 H POC ABG pO2 Sodium Potassium Chloride Carbon Dioxide BUN Creatinine Glucose POC Glucose 143 H Lactic Acid Calcium Phosphorus Total Bilirubin AST ALT Total Creatine Kinase CK-MB (CK-2) Troponin T Total Protein Albumin HDL Cholesterol Salicylates Acetaminophen 10/12/18 10/12/18 10/12/18 05:29 06:52 08:09 WBC RBC Hgb Hct MCV RDW Plt Count Lymph % (Auto) [place] % (Auto) [place] # Seg Neutrophils % Seg Neuts % (Manual) Lymphocytes % (Manual) Monocytes % (Manual) Seg Neutrophils # Seg Neutrophils # Man Lymphocytes # (Manual) Monocytes # (Manual) APTT POC ABG pH 7.322 L POC ABG pCO2 46.5 H POC ABG pO2 Sodium Potassium Chloride Carbon Dioxide BUN Creatinine Glucose POC Glucose 196 H 226 H Lactic Acid Calcium Phosphorus Total Bilirubin AST ALT Total Creatine Kinase CK-MB (CK-2) Troponin T Total Protein Albumin HDL Cholesterol Salicylates Acetaminophen 10/12/18 10/12/18 10/12/18 08:38 10:03 15:50 WBC RBC Hgb Hct MCV RDW Plt Count Lymph % (Auto) [place] % (Auto) [place] # Seg Neutrophils % Seg Neuts % (Manual) Lymphocytes % (Manual) Monocytes % (Manual) Seg Neutrophils # Seg Neutrophils # Man Lymphocytes # (Manual) Monocytes # (Manual) APTT POC ABG pH POC ABG pCO2 POC ABG pO2 Sodium Potassium Chloride Carbon Dioxide BUN Creatinine Glucose POC Glucose 138 H 148 H 221 H Lactic Acid Calcium Phosphorus Total Bilirubin AST ALT Total Creatine Kinase CK-MB (CK-2) Troponin T Total Protein Albumin HDL Cholesterol Salicylates Acetaminophen 10/12/18 10/12/18 10/12/18 18:39 20:56 21:34 WBC RBC Hgb Hct MCV RDW Plt Count Lymph % (Auto) [place] % (Auto) [place] # Seg Neutrophils % Seg Neuts % (Manual) Lymphocytes % (Manual) Monocytes % (Manual) Seg Neutrophils # Seg Neutrophils # Man Lymphocytes # (Manual) Monocytes # (Manual) APTT POC ABG pH 7.336 L POC ABG pCO2 46.0 H POC ABG pO2 Sodium Potassium Chloride Carbon Dioxide BUN Creatinine Glucose POC Glucose 255 H 260 H Lactic Acid Calcium Phosphorus Total Bilirubin AST ALT Total Creatine Kinase CK-MB (CK-2) Troponin T Total Protein Albumin HDL Cholesterol Salicylates Acetaminophen 10/13/18 10/13/18 10/13/18 02:29 05:09 05:40 WBC 17.0 H RBC Hgb Hct MCV RDW Plt Count Lymph % (Auto) [place] % (Auto) 9.2 H [place] # 1.6 H Seg Neutrophils % 76.2 H Seg Neuts % (Manual) Lymphocytes % (Manual) Monocytes % (Manual) Seg Neutrophils # 12.9 H Seg Neutrophils # Man Lymphocytes # (Manual) Monocytes # (Manual) APTT POC ABG pH POC ABG pCO2 POC ABG pO2 Sodium Potassium Chloride Carbon Dioxide BUN Creatinine Glucose POC Glucose 216 H 249 H Lactic Acid Calcium Phosphorus Total Bilirubin AST ALT Total Creatine Kinase CK-MB (CK-2) Troponin T Total Protein Albumin HDL Cholesterol Salicylates Acetaminophen 10/13/18 10/13/18 10/13/18 05:40 05:40 09:46 WBC RBC Hgb Hct MCV RDW Plt Count Lymph % (Auto) [place] % (Auto) [place] # Seg Neutrophils % Seg Neuts % (Manual) Lymphocytes % (Manual) Monocytes % (Manual) Seg Neutrophils # Seg Neutrophils # Man Lymphocytes # (Manual) Monocytes # (Manual) APTT POC ABG pH POC ABG pCO2 POC ABG pO2 Sodium 146 H Potassium Chloride 109.8 H Carbon Dioxide BUN 35 H Creatinine Glucose 245 H POC Glucose 235 H Lactic Acid Calcium 7.9 L Phosphorus Total Bilirubin AST ALT Total Creatine Kinase CK-MB (CK-2) Troponin T 0.952 H* D Total Protein Albumin HDL Cholesterol Salicylates Acetaminophen 10/13/18 10/13/18 10/13/18 13:58 16:15 17:30 WBC RBC Hgb Hct MCV RDW Plt Count Lymph % (Auto) [place] % (Auto) [place] # Seg Neutrophils % Seg Neuts % (Manual) Lymphocytes % (Manual) Monocytes % (Manual) Seg Neutrophils # Seg Neutrophils # Man Lymphocytes # (Manual) Monocytes # (Manual) APTT POC ABG pH POC ABG pCO2 51.2 H POC ABG pO2 Sodium Potassium Chloride Carbon Dioxide BUN Creatinine Glucose POC Glucose 139 H Lactic Acid Calcium Phosphorus Total Bilirubin AST ALT Total Creatine Kinase CK-MB (CK-2) Troponin T 0.816 H* Total Protein Albumin HDL Cholesterol Salicylates Acetaminophen 10/13/18 10/14/18 10/14/18 21:25 01:49 04:52 WBC RBC Hgb Hct MCV RDW Plt Count Lymph % (Auto) [place] % (Auto) [place] # Seg Neutrophils % Seg Neuts % (Manual) Lymphocytes % (Manual) Monocytes % (Manual) Seg Neutrophils # Seg Neutrophils # Man Lymphocytes # (Manual) Monocytes # (Manual) APTT POC ABG pH POC ABG pCO2 56.0 H POC ABG pO2 Sodium Potassium Chloride Carbon Dioxide BUN Creatinine Glucose POC Glucose 205 H 166 H Lactic Acid Calcium Phosphorus Total Bilirubin AST ALT Total Creatine Kinase CK-MB (CK-2) Troponin T Total Protein Albumin HDL Cholesterol Salicylates Acetaminophen 10/14/18 10/14/18 10/14/18 05:32 09:45 09:45 WBC RBC Hgb 11.4 L Hct 34.5 L MCV RDW Plt Count 139 L Lymph % (Auto) [place] % (Auto) [place] # Seg Neutrophils % Seg Neuts % (Manual) Lymphocytes % (Manual) Monocytes % (Manual) Seg Neutrophils # Seg Neutrophils # Man Lymphocytes # (Manual) Monocytes # (Manual) APTT POC ABG pH POC ABG pCO2 POC ABG pO2 Sodium 148 H Potassium Chloride 107.3 H Carbon Dioxide 34 H D BUN Creatinine 0.7 L D Glucose 191 H POC Glucose 164 H Lactic Acid Calcium 7.3 L Phosphorus Total Bilirubin AST 110 H ALT 91 H Total Creatine Kinase CK-MB (CK-2) Troponin T Total Protein 4.9 L Albumin 2.0 L HDL Cholesterol Salicylates Acetaminophen 10/14/18 10/14/18 10/14/18 10:54 12:20 18:30 WBC RBC Hgb Hct MCV RDW Plt Count Lymph % (Auto) [place] % (Auto) [place] # Seg Neutrophils % Seg Neuts % (Manual) Lymphocytes % (Manual) Monocytes % (Manual) Seg Neutrophils # Seg Neutrophils # Man Lymphocytes # (Manual) Monocytes # (Manual) APTT POC ABG pH POC ABG pCO2 POC ABG pO2 Sodium Potassium Chloride Carbon Dioxide BUN Creatinine Glucose POC Glucose 173 H 158 H 108 H Lactic Acid Calcium Phosphorus Total Bilirubin AST ALT Total Creatine Kinase CK-MB (CK-2) Troponin T Total Protein Albumin HDL Cholesterol Salicylates Acetaminophen 10/14/18 10/15/18 10/15/18 21:54 02:12 04:19 WBC RBC Hgb Hct MCV RDW Plt Count Lymph % (Auto) [place] % (Auto) [place] # Seg Neutrophils % Seg Neuts % (Manual) Lymphocytes % (Manual) Monocytes % (Manual) Seg Neutrophils # Seg Neutrophils # Man Lymphocytes # (Manual) Monocytes # (Manual) APTT POC ABG pH 7.491 H POC ABG pCO2 45.1 H POC ABG pO2 Sodium Potassium Chloride Carbon Dioxide BUN Creatinine Glucose POC Glucose 110 H 164 H Lactic Acid Calcium Phosphorus Total Bilirubin AST ALT Total Creatine Kinase CK-MB (CK-2) Troponin T Total Protein Albumin HDL Cholesterol Salicylates Acetaminophen 10/15/18 10/15/18 10/15/18 04:55 05:43 06:20 WBC RBC Hgb 11.7 L Hct 34.7 L MCV RDW Plt Count Lymph % (Auto) [place] % (Auto) [place] # Seg Neutrophils % Seg Neuts % (Manual) Lymphocytes % (Manual) Monocytes % (Manual) Seg Neutrophils # Seg Neutrophils # Man Lymphocytes # (Manual) Monocytes # (Manual) APTT POC ABG pH POC ABG pCO2 47.3 H POC ABG pO2 78 L Sodium Potassium Chloride Carbon Dioxide BUN Creatinine Glucose POC Glucose 250 H Lactic Acid Calcium Phosphorus Total Bilirubin AST ALT Total Creatine Kinase CK-MB (CK-2) Troponin T Total Protein Albumin HDL Cholesterol Salicylates Acetaminophen 10/15/18 10/15/18 10/15/18 12:00 12:00 12:11 WBC RBC Hgb 11.5 L Hct 34.0 L MCV RDW Plt Count Lymph % (Auto) [place] % (Auto) [place] # Seg Neutrophils % Seg Neuts % (Manual) Lymphocytes % (Manual) Monocytes % (Manual) Seg Neutrophils # Seg Neutrophils # Man Lymphocytes # (Manual) Monocytes # (Manual) APTT POC ABG pH POC ABG pCO2 POC ABG pO2 Sodium 147 H Potassium Chloride 108.5 H Carbon Dioxide BUN Creatinine 0.7 L Glucose 209 H POC Glucose 197 H Lactic Acid Calcium 7.3 L Phosphorus Total Bilirubin AST ALT Total Creatine Kinase CK-MB (CK-2) Troponin T Total Protein Albumin HDL Cholesterol Salicylates Acetaminophen 10/15/18 10/15/18 10/15/18 15:48 18:34 21:29 WBC RBC Hgb Hct MCV RDW Plt Count Lymph % (Auto) [place] % (Auto) [place] # Seg Neutrophils % Seg Neuts % (Manual) Lymphocytes % (Manual) Monocytes % (Manual) Seg Neutrophils # Seg Neutrophils # Man Lymphocytes # (Manual) Monocytes # (Manual) APTT POC ABG pH POC ABG pCO2 POC ABG pO2 Sodium Potassium Chloride Carbon Dioxide BUN Creatinine Glucose POC Glucose 220 H 249 H 209 H Lactic Acid Calcium Phosphorus Total Bilirubin AST ALT Total Creatine Kinase CK-MB (CK-2) Troponin T Total Protein Albumin HDL Cholesterol Salicylates Acetaminophen 10/16/18 10/16/18 10/16/18 02:16 03:50 05:57 WBC RBC Hgb Hct MCV RDW Plt Count Lymph % (Auto) [place] % (Auto) [place] # Seg Neutrophils % Seg Neuts % (Manual) Lymphocytes % (Manual) Monocytes % (Manual) Seg Neutrophils # Seg Neutrophils # Man Lymphocytes # (Manual) Monocytes # (Manual) APTT POC ABG pH POC ABG pCO2 55.8 H POC ABG pO2 Sodium Potassium Chloride Carbon Dioxide BUN Creatinine Glucose POC Glucose 110 H 209 H Lactic Acid Calcium Phosphorus Total Bilirubin AST ALT Total Creatine Kinase CK-MB (CK-2) Troponin T Total Protein Albumin HDL Cholesterol Salicylates Acetaminophen 10/16/18 10/16/18 10/16/18 10:51 12:51 15:01 WBC RBC Hgb Hct MCV RDW Plt Count Lymph % (Auto) [place] % (Auto) [place] # Seg Neutrophils % Seg Neuts % (Manual) Lymphocytes % (Manual) Monocytes % (Manual) Seg Neutrophils # Seg Neutrophils # Man Lymphocytes # (Manual) Monocytes # (Manual) APTT POC ABG pH POC ABG pCO2 48.9 H POC ABG pO2 Sodium Potassium Chloride Carbon Dioxide BUN Creatinine Glucose POC Glucose 198 H 196 H Lactic Acid Calcium Phosphorus Total Bilirubin AST ALT Total Creatine Kinase CK-MB (CK-2) Troponin T Total Protein Albumin HDL Cholesterol Salicylates Acetaminophen 10/16/18 10/16/18 10/17/18 17:34 21:59 02:17 WBC RBC Hgb Hct MCV RDW Plt Count Lymph % (Auto) [place] % (Auto) [place] # Seg Neutrophils % Seg Neuts % (Manual) Lymphocytes % (Manual) Monocytes % (Manual) Seg Neutrophils # Seg Neutrophils # Man Lymphocytes # (Manual) Monocytes # (Manual) APTT POC ABG pH POC ABG pCO2 POC ABG pO2 Sodium Potassium Chloride Carbon Dioxide BUN Creatinine Glucose POC Glucose 179 H 139 H 135 H Lactic Acid Calcium Phosphorus Total Bilirubin AST ALT Total Creatine Kinase CK-MB (CK-2) Troponin T Total Protein Albumin HDL Cholesterol Salicylates Acetaminophen 10/17/18 10/17/18 10/17/18 05:40 05:47 10:18 WBC RBC Hgb 11.3 L Hct 33.2 L MCV RDW Plt Count Lymph % (Auto) [place] % (Auto) [place] # Seg Neutrophils % Seg Neuts % (Manual) Lymphocytes % (Manual) Monocytes % (Manual) Seg Neutrophils # Seg Neutrophils # Man Lymphocytes # (Manual) Monocytes # (Manual) APTT POC ABG pH POC ABG pCO2 POC ABG pO2 Sodium Potassium Chloride Carbon Dioxide BUN Creatinine Glucose POC Glucose 125 H 139 H Lactic Acid Calcium Phosphorus Total Bilirubin AST ALT Total Creatine Kinase CK-MB (CK-2) Troponin T Total Protein Albumin HDL Cholesterol Salicylates Acetaminophen 10/17/18 10/18/18 10/18/18 23:11 08:49 11:31 WBC RBC Hgb Hct MCV RDW Plt Count Lymph % (Auto) [place] % (Auto) [place] # Seg Neutrophils % Seg Neuts % (Manual) Lymphocytes % (Manual) Monocytes % (Manual) Seg Neutrophils # Seg Neutrophils # Man Lymphocytes # (Manual) Monocytes # (Manual) APTT POC ABG pH POC ABG pCO2 POC ABG pO2 Sodium Potassium Chloride Carbon Dioxide BUN Creatinine Glucose POC Glucose 165 H 125 H 182 H Lactic Acid Calcium Phosphorus Total Bilirubin AST ALT Total Creatine Kinase CK-MB (CK-2) Troponin T Total Protein Albumin HDL Cholesterol Salicylates Acetaminophen 10/18/18 10/18/18 10/19/18 16:12 21:02 00:28 WBC RBC Hgb 11.4 L Hct 33.6 L MCV RDW Plt Count Lymph % (Auto) [place] % (Auto) 14.0 H [place] # 1.2 H Seg Neutrophils % Seg Neuts % (Manual) Lymphocytes % (Manual) Monocytes % (Manual) Seg Neutrophils # Seg Neutrophils # Man Lymphocytes # (Manual) Monocytes # (Manual) APTT POC ABG pH POC ABG pCO2 POC ABG pO2 Sodium Potassium Chloride Carbon Dioxide BUN Creatinine Glucose POC Glucose 168 H 324 H Lactic Acid Calcium Phosphorus Total Bilirubin AST ALT Total Creatine Kinase CK-MB (CK-2) Troponin T Total Protein Albumin HDL Cholesterol Salicylates Acetaminophen 10/19/18 10/19/18 10/19/18 04:57 04:57 07:32 WBC RBC Hgb 11.7 L Hct 34.0 L MCV RDW Plt Count Lymph % (Auto) [place] % (Auto) [place] # Seg Neutrophils % Seg Neuts % (Manual) Lymphocytes % (Manual) Monocytes % (Manual) Seg Neutrophils # Seg Neutrophils # Man Lymphocytes # (Manual) Monocytes # (Manual) APTT POC ABG pH POC ABG pCO2 POC ABG pO2 Sodium Potassium 3.5 L Chloride 108.6 H Carbon Dioxide BUN Creatinine 0.6 L Glucose POC Glucose 159 H Lactic Acid Calcium 7.9 L Phosphorus Total Bilirubin AST ALT Total Creatine Kinase CK-MB (CK-2) Troponin T Total Protein Albumin HDL Cholesterol Salicylates Acetaminophen 10/19/18 10/19/18 10/20/18 16:25 20:59 12:04 WBC RBC Hgb Hct MCV RDW Plt Count Lymph % (Auto) [place] % (Auto) [place] # Seg Neutrophils % Seg Neuts % (Manual) Lymphocytes % (Manual) Monocytes % (Manual) Seg Neutrophils # Seg Neutrophils # Man Lymphocytes # (Manual) Monocytes # (Manual) APTT POC ABG pH POC ABG pCO2 POC ABG pO2 Sodium Potassium Chloride Carbon Dioxide BUN Creatinine Glucose POC Glucose 134 H 110 H 338 H Lactic Acid Calcium Phosphorus Total Bilirubin AST ALT Total Creatine Kinase CK-MB (CK-2) Troponin T Total Protein Albumin HDL Cholesterol Salicylates Acetaminophen 10/20/18 10/20/18 10/21/18 17:55 22:07 04:59 WBC RBC Hgb 11.6 L Hct 33.9 L MCV RDW Plt Count Lymph % (Auto) [place] % (Auto) 9.7 H [place] # 0.9 H Seg Neutrophils % 70.7 H Seg Neuts % (Manual) Lymphocytes % (Manual) Monocytes % (Manual) Seg Neutrophils # Seg Neutrophils # Man Lymphocytes # (Manual) Monocytes # (Manual) APTT POC ABG pH POC ABG pCO2 POC ABG pO2 Sodium Potassium Chloride Carbon Dioxide BUN Creatinine Glucose POC Glucose 146 H 164 H Lactic Acid Calcium Phosphorus Total Bilirubin AST ALT Total Creatine Kinase CK-MB (CK-2) Troponin T Total Protein Albumin HDL Cholesterol Salicylates Acetaminophen 10/21/18 10/21/18 10/21/18 04:59 07:52 11:39 WBC RBC Hgb Hct MCV RDW Plt Count Lymph % (Auto) [place] % (Auto) [place] # Seg Neutrophils % Seg Neuts % (Manual) Lymphocytes % (Manual) Monocytes % (Manual) Seg Neutrophils # Seg Neutrophils # Man Lymphocytes # (Manual) Monocytes # (Manual) APTT POC ABG pH POC ABG pCO2 POC ABG pO2 Sodium Potassium 3.5 L Chloride 107.1 H Carbon Dioxide BUN Creatinine 0.5 L Glucose 158 H POC Glucose 142 H 194 H Lactic Acid Calcium 7.5 L Phosphorus Total Bilirubin AST ALT Total Creatine Kinase CK-MB (CK-2) Troponin T Total Protein 5.6 L Albumin 2.0 L HDL Cholesterol Salicylates Acetaminophen 10/21/18 10/21/18 10/22/18 17:05 20:37 05:38 WBC RBC 3.48 L Hgb 10.8 L Hct 31.7 L MCV RDW Plt Count 458 H Lymph % (Auto) [place] % (Auto) 10.5 H [place] # Seg Neutrophils % Seg Neuts % (Manual) Lymphocytes % (Manual) Monocytes % (Manual) Seg Neutrophils # Seg Neutrophils # Man Lymphocytes # (Manual) Monocytes # (Manual) APTT POC ABG pH POC ABG pCO2 POC ABG pO2 Sodium Potassium Chloride Carbon Dioxide BUN Creatinine Glucose POC Glucose 167 H 182 H Lactic Acid Calcium Phosphorus Total Bilirubin AST ALT Total Creatine Kinase CK-MB (CK-2) Troponin T Total Protein Albumin HDL Cholesterol Salicylates Acetaminophen 10/22/18 10/22/18 10/22/18 05:38 07:48 12:08 WBC RBC Hgb Hct MCV RDW Plt Count Lymph % (Auto) [place] % (Auto) [place] # Seg Neutrophils % Seg Neuts % (Manual) Lymphocytes % (Manual) Monocytes % (Manual) Seg Neutrophils # Seg Neutrophils # Man Lymphocytes # (Manual) Monocytes # (Manual) APTT POC ABG pH POC ABG pCO2 POC ABG pO2 Sodium Potassium Chloride Carbon Dioxide BUN Creatinine 0.5 L Glucose 146 H POC Glucose 130 H 167 H Lactic Acid Calcium 7.8 L Phosphorus Total Bilirubin AST 41 H ALT Total Creatine Kinase CK-MB (CK-2) Troponin T Total Protein 5.5 L Albumin 2.1 L HDL Cholesterol Salicylates Acetaminophen 10/22/18 10/22/18 10/23/18 16:45 21:42 04:38 WBC RBC Hgb 11.7 L Hct 34.7 L MCV RDW Plt Count 523 H Lymph % (Auto) [place] % (Auto) 8.7 H [place] # Seg Neutrophils % 71.6 H Seg Neuts % (Manual) Lymphocytes % (Manual) Monocytes % (Manual) Seg Neutrophils # Seg Neutrophils # Man Lymphocytes # (Manual) Monocytes # (Manual) APTT POC ABG pH POC ABG pCO2 POC ABG pO2 Sodium Potassium Chloride Carbon Dioxide BUN Creatinine Glucose POC Glucose 113 H 134 H Lactic Acid Calcium Phosphorus Total Bilirubin AST ALT Total Creatine Kinase CK-MB (CK-2) Troponin T Total Protein Albumin HDL Cholesterol Salicylates Acetaminophen 10/23/18 10/23/18 10/23/18 04:38 07:56 11:15 WBC RBC Hgb Hct MCV RDW Plt Count Lymph % (Auto) [place] % (Auto) [place] # Seg Neutrophils % Seg Neuts % (Manual) Lymphocytes % (Manual) Monocytes % (Manual) Seg Neutrophils # Seg Neutrophils # Man Lymphocytes # (Manual) Monocytes # (Manual) APTT POC ABG pH POC ABG pCO2 POC ABG pO2 Sodium Potassium Chloride Carbon Dioxide BUN 7 L Creatinine 0.5 L Glucose 150 H POC Glucose 123 H 212 H Lactic Acid Calcium 8.0 L Phosphorus Total Bilirubin AST 55 H ALT Total Creatine Kinase CK-MB (CK-2) Troponin T Total Protein 6.2 L Albumin 2.3 L HDL Cholesterol Salicylates Acetaminophen 10/23/18 10/23/18 10/24/18 16:06 22:01 05:56 WBC 11.8 H RBC 3.64 L Hgb 11.2 L Hct 33.4 L MCV RDW Plt Count 564 H Lymph % (Auto) 11.3 L [place] % (Auto) [place] # Seg Neutrophils % 80.2 H Seg Neuts % (Manual) Lymphocytes % (Manual) Monocytes % (Manual) Seg Neutrophils # 9.4 H Seg Neutrophils # Man Lymphocytes # (Manual) Monocytes # (Manual) APTT POC ABG pH POC ABG pCO2 POC ABG pO2 Sodium Potassium Chloride Carbon Dioxide BUN Creatinine Glucose POC Glucose 152 H 235 H Lactic Acid Calcium Phosphorus Total Bilirubin AST ALT Total Creatine Kinase CK-MB (CK-2) Troponin T Total Protein Albumin HDL Cholesterol Salicylates Acetaminophen 10/24/18 10/24/18 10/24/18 05:56 07:52 11:58 WBC RBC Hgb Hct MCV RDW Plt Count Lymph % (Auto) [place] % (Auto) [place] # Seg Neutrophils % Seg Neuts % (Manual) Lymphocytes % (Manual) Monocytes % (Manual) Seg Neutrophils # Seg Neutrophils # Man Lymphocytes # (Manual) Monocytes # (Manual) APTT POC ABG pH POC ABG pCO2 POC ABG pO2 Sodium Potassium Chloride Carbon Dioxide BUN Creatinine 0.5 L Glucose 175 H POC Glucose 156 H 238 H Lactic Acid Calcium 8.0 L Phosphorus Total Bilirubin AST 44 H ALT Total Creatine Kinase CK-MB (CK-2) Troponin T Total Protein 6.2 L Albumin 2.4 L HDL Cholesterol Salicylates Acetaminophen 10/24/18 10/24/18 10/25/18 16:20 22:13 07:53 WBC RBC Hgb Hct MCV RDW Plt Count Lymph % (Auto) [place] % (Auto) [place] # Seg Neutrophils % Seg Neuts % (Manual) Lymphocytes % (Manual) Monocytes % (Manual) Seg Neutrophils # Seg Neutrophils # Man Lymphocytes # (Manual) Monocytes # (Manual) APTT POC ABG pH POC ABG pCO2 POC ABG pO2 Sodium Potassium Chloride Carbon Dioxide BUN Creatinine Glucose POC Glucose 60 L 261 H 211 H Lactic Acid Calcium Phosphorus Total Bilirubin AST ALT Total Creatine Kinase CK-MB (CK-2) Troponin T Total Protein Albumin HDL Cholesterol Salicylates Acetaminophen 10/25/18 10/25/18 10/25/18 11:03 16:02 22:45 WBC RBC Hgb Hct MCV RDW Plt Count Lymph % (Auto) [place] % (Auto) [place] # Seg Neutrophils % Seg Neuts % (Manual) Lymphocytes % (Manual) Monocytes % (Manual) Seg Neutrophils # Seg Neutrophils # Man Lymphocytes # (Manual) Monocytes # (Manual) APTT POC ABG pH POC ABG pCO2 POC ABG pO2 Sodium Potassium Chloride Carbon Dioxide BUN Creatinine Glucose POC Glucose 137 H 186 H 140 H Lactic Acid Calcium Phosphorus Total Bilirubin AST ALT Total Creatine Kinase CK-MB (CK-2) Troponin T Total Protein Albumin HDL Cholesterol Salicylates Acetaminophen 10/26/18 10/26/18 10/26/18 08:13 10:08 11:28 WBC RBC Hgb Hct MCV RDW Plt Count Lymph % (Auto) [place] % (Auto) [place] # Seg Neutrophils % Seg Neuts % (Manual) Lymphocytes % (Manual) Monocytes % (Manual) Seg Neutrophils # Seg Neutrophils # Man Lymphocytes # (Manual) Monocytes # (Manual) APTT POC ABG pH POC ABG pCO2 POC ABG pO2 Sodium Potassium Chloride Carbon Dioxide BUN Creatinine Glucose POC Glucose 144 H 110 H 201 H Lactic Acid Calcium Phosphorus Total Bilirubin AST ALT Total Creatine Kinase CK-MB (CK-2) Troponin T Total Protein Albumin HDL Cholesterol Salicylates Acetaminophen Allied health notes reviewed: nursing
[2018-10-26] MEDS: ELIQUIS PO SCH (22:18)
[2018-10-27] MEDS: DUONEB *Not for PRN Use IH SCH ×3 (07:55→20:04)
[2018-10-27] MEDS: DILAUDID IV PRN ×2 (08:17→21:18)
[2018-10-27] MEDS: HumuLIN R SUB-Q SCH ×4 (09:01→22:00)
[2018-10-27] MEDS: XANAX PO PRN (10:25)
[2018-10-27] MEDS: PEPCID PO SCH ×2 (10:25→21:18)
[2018-10-27] MEDS: ELIQUIS PO SCH (10:25)
[2018-10-27] MEDS: celeXA PO SCH (10:26)
[2018-10-27] MEDS: LOPRESSOR PO SCH ×2 (10:26→21:18)
[2018-10-27] MEDS: PERCOCET 5/325 PO PRN ×2 (12:04→23:48)
[2018-10-27] MEDS ORDERED: DILAUDID IV PRN ×2 (12:04→16:13)
--- NOTE | 2018-10-27 12:05 | Progress Note ---
Assessment and Plan Assessment and plan: --Bilateral lower extremity PVD with gangrene left greater than right. --Acute thrombus in bilateral lower extremities, 10/13/18 LE arterial doppler Bilateral lower extremity angiogram revealed: Occlusion with thrombus of the right external iliac artery with reconstitution of the right common femoral artery. Occlusion with thrombusof the left popliteal artery with nonvisualization of the tibial vessels. Occlusion with thrombus of the distal profunda. Vascular surgery reports that the patient will require interventions and ultimately amputation. The patient will need to be able to be fully anti coagulated prior to these interventions. I discussed the case with neurology. Dr. huggins reports clearance for anticoagulation given that the patient is 21 days from his CVA. Therefore, we will start eliquis 5 mg twice a day. (Indication with A. fib.) --acute/subacute right FT CVA Initial CT head, no acute finding, 10/13/18 found to have left-sided weakness MRI brain showed numerous acute/subacute multilobar infarcts involving the cerebrum and cerebellum including Hemorrhagic transformation of the right frontal and biparietal lobes was Not a candidate for tPA, monitor off aspirin per teleneurology QUIQUE ; no thrombus or shunt, Speech recommended pureed diet --Severe sepsis with shock; present on admission Probably due to aspiration pneumonia, completed total 7 days of antibiotics off pressors --Paroxysmal atrial fibrillation. Eliquis 5MG twice a day --LLL pneumonia : completed treatment --Acute respiratory failure with hypoxia and hypercapnia: Requiring intubation, extubated, nebs , supplemental O2 as needed --Hyperglycemia:cont SSI for now, diabetic diet --Acute toxic/metabolic encephalopathy, improved --Seizure; seizure precautions, no new episodes of seizure Ativan when necessary, neurology did not recommend antiepileptic medications --Elevated troponin/NSTEMI type 2 Echocardiogram for further evaluation - Ef 25-30% Cardiology consulted, medical Mx for now, --Acute systolic CHF, Ef 25-30%, anti-failure medications --ARF, due to vasomotor nephropathy, resolved --Hyperkalemia, resolved --Abnormal LFT Probably due to sepsis and chronic hepatitis C virus infection Abdominal US showed no sign of cirrhosis --Severe protein calorie malnutrition; nutrition supplements Dietitian consulted --DVT prophylaxis with heparin and GI prophylaxis with famotidine --Tobacco abuse. Patient with a long smoking history of one pack per day or more since age 9. Patient was counseled on smoking cessation. Disposition: Patient is to transfer to SNF for approximately 2 weeks then have scheduled procedures by vascular surgery as noted above. I will discuss with case management. History Interval history: No new issues overnight. Hospitalist Physical - Constitutional Vitals: Temp Pulse Resp BP Pulse Ox 97.5 F L 91 H 18 98/61 96 10/27/18 05:18 10/27/18 10:14 10/27/18 07:40 10/27/18 10:14 10/27/18 10:00 General appearance: Present: no acute distress - EENT Eyes: Present: PERRL, EOM intact ENT: hearing intact, clear oral mucosa, dentition normal - Neck Neck: Present: supple, normal ROM - Respiratory Respiratory effort: normal Respiratory: bilateral: CTA - Cardiovascular Rhythm: regular Heart Sounds: Present: S1 & S2. Absent: gallop, rub - Extremities Extremities: no ischemia, No edema, Full ROM - Abdominal General gastrointestinal: soft, non-tender, non-distended, normal bowel sounds - Integumentary Integumentary: Present: clear, warm, dry - Neurologic Neurologic: CNII-XII intact, moves all extremities Results - Labs CBC & Chem 7: 10/24/18 05:56 10/24/18 05:56 Labs: Laboratory Last Values WBC 11.8 K/mm3 (4.5-11.0) H 10/24/18 05:56 RBC 3.64 M/mm3 (3.65-5.03) L 10/24/18 05:56 Hgb 11.2 gm/dl (11.8-15.2) L 10/24/18 05:56 Hct 33.4 % (35.5-45.6) L 10/24/18 05:56 MCV 92 fl (84-94) 10/24/18 05:56 MCH 31 pg (28-32) 10/24/18 05:56 MCHC 34 % (32-34) 10/24/18 05:56 RDW 14.2 % (13.2-15.2) 10/24/18 05:56 Plt Count 564 K/mm3 (140-440) H 10/24/18 05:56 Lymph % (Auto) 11.3 % (13.4-35.0) L 10/24/18 05:56 [place] % (Auto) 7.1 % (0.0-7.3) 10/24/18 05:56 Eos % (Auto) 1.0 % (0.0-4.3) 10/24/18 05:56 Baso % (Auto) 0.4 % (0.0-1.8) 10/24/18 05:56 Lymph # 1.3 K/mm3 (1.2-5.4) 10/24/18 05:56 [place] # 0.8 K/mm3 (0.0-0.8) 10/24/18 05:56 Eos # 0.1 K/mm3 (0.0-0.4) 10/24/18 05:56 Baso # 0.0 K/mm3 (0.0-0.1) 10/24/18 05:56 Add Manual Diff Complete 10/12/18 04:04 Total Counted 100 10/12/18 04:04 Seg Neutrophils % 80.2 % (40.0-70.0) H 10/24/18 05:56 Seg Neuts % (Manual) 32.0 % (40.0-70.0) L 10/12/18 04:04 39.0 % 10/12/18 04:04 19.0 % (13.4-35.0) 10/12/18 04:04 Reactive Lymphs % (Man) 0 % 10/12/18 04:04 8.0 % (0.0-7.3) H 10/12/18 04:04 0 % (0.0-4.3) 10/12/18 04:04 0 % (0.0-1.8) 10/12/18 04:04 2.0 % 10/12/18 04:04 0 % 10/12/18 04:04 0 % 10/12/18 04:04 0 % 10/12/18 04:04 Nucleated RBC % Not Reportable 10/12/18 04:04 Seg Neutrophils # 9.4 K/mm3 (1.8-7.7) H 10/24/18 05:56 Seg Neutrophils # Man 7.8 K/mm3 (1.8-7.7) H 10/12/18 04:04 Band Neutrophils # 9.5 K/mm3 10/12/18 04:04 4.6 K/mm3 (1.2-5.4) 10/12/18 04:04 Abs React Lymphs (Man) 0.0 K/mm3 10/12/18 04:04 2.0 K/mm3 (0.0-0.8) H 10/12/18 04:04 0.0 K/mm3 (0.0-0.4) 10/12/18 04:04 0.0 K/mm3 (0.0-0.1) 10/12/18 04:04 0.5 K/mm3 10/12/18 04:04 0.0 K/mm3 10/12/18 04:04 0.0 K/mm3 10/12/18 04:04 Blast Cells # 0.0 K/mm3 10/12/18 04:04 Pathologist Review 10/11/18 00:16 WBC Morphology Not Reportable 10/12/18 04:04 Hypersegmented Neuts Not Reportable 10/12/18 04:04 Hyposegmented Neuts Not Reportable 10/12/18 04:04 Hypogranular Neuts Not Reportable 10/12/18 04:04 Not Reportable 10/12/18 04:04 Not Reportable 10/12/18 04:04 Not Reportable 10/12/18 04:04 Not Reportable 10/12/18 04:04 Not Reportable 10/12/18 04:04 Not Reportable 10/12/18 04:04 Appears normal 10/12/18 04:04 Not Reportable 10/12/18 04:04 Plt Clumps, EDTA Not Reportable 10/12/18 04:04 Not Reportable 10/12/18 04:04 Not Reportable 10/12/18 04:04 Not Reportable 10/12/18 04:04 Plt Morphology Comment Not Reportable 10/12/18 04:04 RBC Morphology Not Reportable 10/12/18 04:04 Dimorphic RBCs Not Reportable 10/12/18 04:04 Not Reportable 10/12/18 04:04 Not Reportable 10/12/18 04:04 Not Reportable 10/12/18 04:04 1+ 10/12/18 04:04 Not Reportable 10/12/18 04:04 Not Reportable 10/12/18 04:04 Not Reportable 10/12/18 04:04 Not Reportable 10/12/18 04:04 Not Reportable 10/12/18 04:04 Not Reportable 10/12/18 04:04 Not Reportable 10/12/18 04:04 Not Reportable 10/12/18 04:04 Not Reportable 10/12/18 04:04 Not Reportable 10/12/18 04:04 Not Reportable 10/12/18 04:04 Not Reportable 10/12/18 04:04 Not Reportable 10/12/18 04:04 Not Reportable 10/12/18 04:04 Not Reportable 10/12/18 04:04 Acanthocytes (Spur) Not Reportable 10/12/18 04:04 Rouleaux Not Reportable 10/12/18 04:04 Not Reportable 10/12/18 04:04 Not Reportable 10/12/18 04:04 Not Reportable 10/12/18 04:04 Not Reportable 10/12/18 04:04 Hem Pathologist Commnt No 10/12/18 04:04 PT 13.5 Sec. (12.2-14.9) 10/23/18 04:38 INR 0.97 (0.87-1.13) 10/23/18 04:38 APTT 24.1 Sec. (24.2-36.6) L 10/11/18 08:29 Heparin Anti-Xa, Unfract Negative (Negative) 10/15/18 12:00 POC ABG pH 7.393 (7.35-7.45) 10/16/18 12:51 POC ABG pCO2 48.9 (35-45) H 10/16/18 12:51 POC ABG pO2 92 (80-105) 10/16/18 12:51 POC ABG HCO3 29.8 (22-26 mml/L) 10/16/18 12:51 POC ABG Total CO2 31 (23-27mmol/L) 10/16/18 12:51 POC ABG O2 Sat 97 10/16/18 12:51 POC ABG Base Excess 5 ((-2) - (+3)mmol/L) 10/16/18 12:51 35 % 10/16/18 12:51 Sodium 138 mmol/L (137-145) 10/24/18 05:56 Potassium 4.4 mmol/L (3.6-5.0) 10/24/18 05:56 Chloride 102.0 mmol/L (98-107) 10/24/18 05:56 Carbon Dioxide 29 mmol/L (22-30) 10/24/18 05:56 11 mmol/L 10/24/18 05:56 BUN 9 mg/dL (9-20) 10/24/18 05:56 0.5 mg/dL (0.8-1.5) L 10/24/18 05:56 Estimated GFR > 60 ml/min 10/24/18 05:56 18 % 10/24/18 05:56 Glucose 175 mg/dL (75-100) H 10/24/18 05:56 POC Glucose 182 (70-105) H 10/27/18 07:34 Lactic Acid 2.70 mmol/L (0.7-2.0) H* 10/11/18 12:30 Calcium 8.0 mg/dL (8.4-10.2) L 10/24/18 05:56 Phosphorus 2.80 mg/dL (2.5-4.5) 10/21/18 04:59 Magnesium 1.90 mg/dL (1.7-2.3) 10/21/18 04:59 0.30 mg/dL (0.1-1.2) 10/24/18 05:56 AST 44 units/L (5-40) H 10/24/18 05:56 ALT 40 units/L (7-56) 10/24/18 05:56 57 units/L (35-129) 10/24/18 05:56 3647 units/L (55-170) H 10/12/18 04:04 CK-MB (CK-2) 48.3 ng/mL (0.0-4.0) H 10/12/18 04:04 CK-MB (CK-2) Rel Index 1.3 (0-4) 10/12/18 04:04 0.816 ng/mL (0.00-0.029) H* 10/13/18 16:15 6.2 g/dL (6.3-8.2) L 10/24/18 05:56 2.4 g/dL (3.9-5) L 10/24/18 05:56 0.6 % 10/24/18 05:56 Triglycerides 87 mg/dL (2-149) 10/11/18 00:16 Cholesterol 73 mg/dL (50-199) 10/11/18 00:16 51 mg/dL (50-130) 10/11/18 00:16 19 mg/dL (40-59) L 10/11/18 00:16 3.84 % 10/11/18 00:16 See scanned report 10/15/18 12:00 Yellow (Yellow) 10/11/18 01:42 Cloudy (Clear) 10/11/18 01:42 6.0 (5.0-7.0) 10/11/18 01:42 Ur Specific [place] 1.011 (1.003-1.030) 10/11/18 01:42 100 mg/dl mg/dL (Negative) 10/11/18 01:42 >=500 mg/dL (Negative) 10/11/18 01:42 Neg mg/dL (Negative) 10/11/18 01:42 Mod (Negative) 10/11/18 01:42 Neg (Negative) 10/11/18 01:42 Neg (Negative) 10/11/18 01:42 4.0 mg/dL (<2.0) 10/11/18 01:42 Ur Leukocyte Esterase Neg (Negative) 10/11/18 01:42 5.0 /HPF (0.0-6.0) 10/11/18 01:42 2.0 /HPF (0.0-6.0) 10/11/18 01:42 U Epithel Cells (Auto) < 1.0 /HPF (0-13.0) 10/11/18 01:42 Amorphous Crystals 1+ 10/11/18 01:42 Few /HPF 10/11/18 01:42 2+ /HPF (INVESTIGATOR FRAUD) 10/11/18 01:42 Vancomycin Trough 8.3 ug/mL (5.0-20.0) 10/13/18 05:40 Salicylates < 0.3 mg/dL (2.8-20.0) L 10/11/18 00:16 Presumptive positive 10/11/18 01:42 Presumptive negative 10/11/18 01:42 Acetaminophen < 5.0 ug/mL (10.0-30.0) L 10/11/18 00:16 Ur Barbiturates Screen Presumptive negative 10/11/18 01:42 Ur Phencyclidine Scrn Presumptive negative 10/11/18 01:42 Ur Amphetamines Screen Presumptive positive 10/11/18 01:42 U Benzodiazepines Scrn Presumptive positive 10/11/18 01:42 Presumptive negative 10/11/18 01:42 U Marijuana (THC) Screen Presumptive negative 10/11/18 01:42 Disclamer 10/11/18 01:42 Plasma/Serum Alcohol < 0.01 % (0-0.07) 10/11/18 00:16 Heparin-induced Plt Ab Negative (Negative) 10/15/18 12:00 UF Heparin High Dose 0 % Release 10/15/18 12:00 AURELIO UFH Low Dose 0.1 0 % Release 10/15/18 12:00 AURELIO UFH Low Dose 0.5 0 % Release 10/15/18 12:00 Active Medications - Current Medications Current Medications: Generic Name Dose Route Start Last Admin Trade Name Freq PRN Reason Stop Dose Admin Acetaminophen 650 mg 10/11/18 04:04 10/21/18 22:21 Tylenol PO 650 mg Q4H PRN Administration Pain MILD(1-3)/Fever >100.5/HOLLINS Acetaminophen 650 mg 10/18/18 11:53 Tylenol ND Q4H PRN Pain, Mild(1-3)/Fever>100.5/HOLLINS Albuterol 2.5 mg 10/19/18 00:54 Proventil IH Q4HRT PRN Shortness Of Breath Albuterol/Ipratropium 1 ampul 10/19/18 08:00 10/27/18 07:55 Duoneb *Not For Prn Use* IH 1 ampul TIDRT ISAAC Administration Alprazolam 1 mg 10/20/18 13:06 10/27/18 10:25 Xanax PO 1 mg TID PRN Administration Anxiety Lipase/Protease/Amylase 1 each 10/18/18 13:43 Pancreazalvin Mcgrath 10,500 Unit FEEDTUBE PRN PRN For Clogged Feeding Tube Apixaban 5 mg 10/26/18 22:00 10/27/18 10:25 Eliquis PO 5 mg Q12HR ISAAC Administration Protocol Citalopram Hydrobromide 10 mg 10/21/18 10:00 10/27/18 10:26 Celexa PO 10 mg QDAY ISAAC Administration Dextrose 0 ml 10/11/18 03:57 10/11/18 10:18 D50w (25gm) Syringe IV 10 ml PRN PRN Administration Hypoglycemia Famotidine 20 mg 10/15/18 10:00 10/27/18 10:25 Pepcid PO 20 mg BID ISAAC Administration Hydromorphone HCl 0.5 mg 10/27/18 12:04 Dilaudid IV Q4H PRN Pain , Severe (7-10) Hydrophilic Ointment 1 applic 10/11/18 14:00 Vaseline Lip Therapy TP Q2HR PRN Dry Lips Sodium Chloride 500 mls @ 50 mls/hr 10/26/18 08:00 Nacl 0.9% 500 Ml IV DIRECT ISAAC Insulin Human Regular 0 units 10/17/18 11:30 10/27/18 09:01 Humulin R SUB-Q 3 units ACHS ISAAC Administration Protocol Metoprolol Tartrate 25 mg 10/18/18 22:00 10/27/18 10:26 Lopressor PO 25 mg BID ISAAC Administration Metoprolol Tartrate 2.5 mg 10/18/18 18:51 10/18/18 22:19 Lopressor IV 2.5 mg Q6H PRN Administration Tachyarrhythmias Multi-Ingred Cream/Lotion/Oil/Oint 1 applic 10/11/18 14:00 Artificial Tears Ophth Oint OU Q4HR PRN Dry Eye(s) Ondansetron HCl 4 mg 10/11/18 04:04 Zofran IV Q8H PRN Nausea And Vomiting Oxycodone/Acetaminophen 1 tab 10/18/18 13:45 10/26/18 10:35 Percocet 5/325 PO 1 tab Q6H PRN Administration Pain, Moderate (4-6) Quetiapine Fumarate 200 mg 10/14/18 22:00 10/26/18 22:18 Seroquel PO 200 mg QHS ISAAC Administration Sodium Bicarbonate 325 mg 10/18/18 13:43 Sodium Bicarbonate FEEDTUBE PRN PRN For Clogged Feeding Tube Nutrition/Malnutrition Assess - Dietary Evaluation Nutrition/Malnutrition Findings: Nutrition Notes Start: 10/11/18 12:39 Freq: Status: Active Protocol: Document 10/25/18 16:48 RM (Rec: 10/25/18 16:52 RM [id number]) Nutrition Notes Initial or Follow up Brief Note Current Diet NPO Subjective/Other Information Pt remains NPO for possible revascularization. Nutrition Intervention Follow-Up By: 10/29/18 Additional Comments Follow for diet advancement, PO and ONS intakes
--- NOTE | 2018-10-27 12:31 | Progress Note ---
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 see conversation documented Objective - Vital Sign Vital Signs - 12hr 10/27/18 10/27/18 10/27/18 05:18 07:30 07:40 Temperature 97.5 F L Pulse Rate 87 Pulse Rate [ 94 H 95 H Bilateral] Respiratory 16 Rate Respiratory 18 18 Rate [Bilateral ] Blood Pressure 91/48 Blood Pressure [Right] O2 Sat by Pulse 98 Oximetry 10/27/18 10/27/18 10:00 10:14 Temperature Pulse Rate 91 H Pulse Rate [ Bilateral] Respiratory Rate Respiratory Rate [Bilateral ] Blood Pressure Blood Pressure 98/61 [Right] O2 Sat by Pulse 96 Oximetry - Laboratory Findings CBC and BMP: 10/24/18 05:56 10/24/18 05:56 Abnormal Lab Findings: Abnormal Labs 10/11/18 10/11/18 10/11/18 00:16 00:16 00:16 WBC 20.1 H RBC Hgb Hct MCV 98 H RDW 15.4 H Plt Count Lymph % (Auto) [place] % (Auto) [place] # Seg Neutrophils % Seg Neuts % (Manual) Lymphocytes % (Manual) 5.0 L Monocytes % (Manual) 25.0 H Seg Neutrophils # Seg Neutrophils # Man 9.2 H Lymphocytes # (Manual) 1.0 L Monocytes # (Manual) 5.0 H APTT POC ABG pH POC ABG pCO2 POC ABG pO2 Sodium Potassium 5.8 H Chloride Carbon Dioxide 17 L BUN Creatinine 2.2 H Glucose 348 H POC Glucose Lactic Acid 13.70 H* Calcium 7.7 L Phosphorus Total Bilirubin 1.50 H AST 179 H ALT 110 H Total Creatine Kinase 324 H CK-MB (CK-2) Troponin T 0.257 H* Total Protein 5.9 L Albumin 2.9 L HDL Cholesterol 19 L Salicylates Acetaminophen 10/11/18 10/11/18 10/11/18 00:16 00:16 01:21 WBC RBC Hgb Hct MCV RDW Plt Count Lymph % (Auto) [place] % (Auto) [place] # Seg Neutrophils % Seg Neuts % (Manual) Lymphocytes % (Manual) Monocytes % (Manual) Seg Neutrophils # Seg Neutrophils # Man Lymphocytes # (Manual) Monocytes # (Manual) APTT POC ABG pH 7.110 L POC ABG pCO2 50.3 H POC ABG pO2 65 L Sodium Potassium Chloride Carbon Dioxide BUN Creatinine Glucose POC Glucose Lactic Acid Calcium Phosphorus Total Bilirubin AST ALT Total Creatine Kinase CK-MB (CK-2) Troponin T Total Protein Albumin HDL Cholesterol Salicylates < 0.3 L Acetaminophen < 5.0 L 10/11/18 10/11/18 10/11/18 01:22 03:27 04:14 WBC RBC Hgb Hct MCV RDW Plt Count Lymph % (Auto) [place] % (Auto) [place] # Seg Neutrophils % Seg Neuts % (Manual) Lymphocytes % (Manual) Monocytes % (Manual) Seg Neutrophils # Seg Neutrophils # Man Lymphocytes # (Manual) Monocytes # (Manual) APTT POC ABG pH POC ABG pCO2 POC ABG pO2 Sodium Potassium Chloride Carbon Dioxide BUN Creatinine Glucose POC Glucose Lactic Acid 8.50 H* 4.10 H* Calcium Phosphorus 4.90 H Total Bilirubin AST ALT Total Creatine Kinase CK-MB (CK-2) Troponin T Total Protein Albumin HDL Cholesterol Salicylates Acetaminophen 10/11/18 10/11/18 10/11/18 04:14 04:14 04:14 WBC RBC Hgb Hct MCV RDW Plt Count Lymph % (Auto) [place] % (Auto) [place] # Seg Neutrophils % Seg Neuts % (Manual) Lymphocytes % (Manual) Monocytes % (Manual) Seg Neutrophils # Seg Neutrophils # Man Lymphocytes # (Manual) Monocytes # (Manual) APTT POC ABG pH POC ABG pCO2 POC ABG pO2 Sodium Potassium 5.6 H Chloride Carbon Dioxide 19 L BUN Creatinine 1.6 H Glucose 329 H POC Glucose 328 H Lactic Acid Calcium 7.3 L Phosphorus Total Bilirubin AST ALT Total Creatine Kinase CK-MB (CK-2) Troponin T 1.130 H* D Total Protein Albumin HDL Cholesterol Salicylates Acetaminophen 10/11/18 10/11/18 10/11/18 05:10 05:32 05:58 WBC RBC Hgb Hct MCV RDW Plt Count Lymph % (Auto) [place] % (Auto) [place] # Seg Neutrophils % Seg Neuts % (Manual) Lymphocytes % (Manual) Monocytes % (Manual) Seg Neutrophils # Seg Neutrophils # Man Lymphocytes # (Manual) Monocytes # (Manual) APTT POC ABG pH 7.259 L POC ABG pCO2 45.6 H POC ABG pO2 Sodium Potassium Chloride 108.6 H Carbon Dioxide 20 L BUN Creatinine 1.8 H Glucose 269 H POC Glucose 273 H Lactic Acid Calcium 7.0 L Phosphorus Total Bilirubin AST ALT Total Creatine Kinase CK-MB (CK-2) Troponin T Total Protein Albumin HDL Cholesterol Salicylates Acetaminophen 10/11/18 10/11/18 10/11/18 05:58 06:39 07:00 WBC RBC Hgb Hct MCV RDW Plt Count Lymph % (Auto) [place] % (Auto) [place] # Seg Neutrophils % Seg Neuts % (Manual) Lymphocytes % (Manual) Monocytes % (Manual) Seg Neutrophils # Seg Neutrophils # Man Lymphocytes # (Manual) Monocytes # (Manual) APTT POC ABG pH POC ABG pCO2 POC ABG pO2 Sodium Potassium Chloride Carbon Dioxide BUN Creatinine Glucose POC Glucose 247 H Lactic Acid 3.20 H* 3.30 H* Calcium Phosphorus Total Bilirubin AST ALT Total Creatine Kinase CK-MB (CK-2) Troponin T Total Protein Albumin HDL Cholesterol Salicylates Acetaminophen 10/11/18 10/11/18 10/11/18 07:00 07:30 07:36 WBC RBC Hgb Hct MCV RDW Plt Count Lymph % (Auto) [place] % (Auto) [place] # Seg Neutrophils % Seg Neuts % (Manual) Lymphocytes % (Manual) Monocytes % (Manual) Seg Neutrophils # Seg Neutrophils # Man Lymphocytes # (Manual) Monocytes # (Manual) APTT POC ABG pH POC ABG pCO2 POC ABG pO2 Sodium 146 H Potassium Chloride 112.1 H Carbon Dioxide 21 L BUN Creatinine 1.6 H Glucose 218 H POC Glucose Lactic Acid 3.20 H* Calcium 7.0 L Phosphorus Total Bilirubin AST ALT Total Creatine Kinase CK-MB (CK-2) Troponin T 1.020 H* Total Protein Albumin HDL Cholesterol Salicylates Acetaminophen 10/11/18 10/11/18 10/11/18 07:43 08:29 08:29 WBC RBC Hgb 16.2 H Hct 49.9 H D MCV RDW Plt Count Lymph % (Auto) [place] % (Auto) [place] # Seg Neutrophils % Seg Neuts % (Manual) Lymphocytes % (Manual) Monocytes % (Manual) Seg Neutrophils # Seg Neutrophils # Man Lymphocytes # (Manual) Monocytes # (Manual) APTT POC ABG pH POC ABG pCO2 POC ABG pO2 Sodium Potassium Chloride Carbon Dioxide BUN Creatinine Glucose POC Glucose 174 H Lactic Acid 3.90 H* Calcium Phosphorus Total Bilirubin AST ALT Total Creatine Kinase CK-MB (CK-2) Troponin T Total Protein Albumin HDL Cholesterol Salicylates Acetaminophen 10/11/18 10/11/18 10/11/18 08:29 08:42 11:05 WBC RBC Hgb Hct MCV RDW Plt Count Lymph % (Auto) [place] % (Auto) [place] # Seg Neutrophils % Seg Neuts % (Manual) Lymphocytes % (Manual) Monocytes % (Manual) Seg Neutrophils # Seg Neutrophils # Man Lymphocytes # (Manual) Monocytes # (Manual) APTT 24.1 L POC ABG pH POC ABG pCO2 POC ABG pO2 Sodium 147 H Potassium Chloride 113.3 H Carbon Dioxide 21 L BUN Creatinine 1.7 H Glucose 119 H POC Glucose 164 H Lactic Acid Calcium 7.7 L Phosphorus Total Bilirubin AST ALT Total Creatine Kinase CK-MB (CK-2) Troponin T Total Protein Albumin HDL Cholesterol Salicylates Acetaminophen 10/11/18 10/11/18 10/11/18 11:05 11:06 12:30 WBC RBC Hgb Hct MCV RDW Plt Count Lymph % (Auto) [place] % (Auto) [place] # Seg Neutrophils % Seg Neuts % (Manual) Lymphocytes % (Manual) Monocytes % (Manual) Seg Neutrophils # Seg Neutrophils # Man Lymphocytes # (Manual) Monocytes # (Manual) APTT POC ABG pH POC ABG pCO2 POC ABG pO2 Sodium 148 H Potassium Chloride 113.4 H Carbon Dioxide 21 L BUN Creatinine 1.6 H Glucose 119 H POC Glucose 116 H Lactic Acid 3.20 H* Calcium 7.5 L Phosphorus Total Bilirubin AST ALT Total Creatine Kinase CK-MB (CK-2) Troponin T Total Protein Albumin HDL Cholesterol Salicylates Acetaminophen 10/11/18 10/11/18 10/11/18 12:30 13:16 13:25 WBC RBC Hgb Hct MCV RDW Plt Count Lymph % (Auto) [place] % (Auto) [place] # Seg Neutrophils % Seg Neuts % (Manual) Lymphocytes % (Manual) Monocytes % (Manual) Seg Neutrophils # Seg Neutrophils # Man Lymphocytes # (Manual) Monocytes # (Manual) APTT POC ABG pH 7.247 L POC ABG pCO2 48.4 H POC ABG pO2 Sodium Potassium Chloride Carbon Dioxide BUN Creatinine Glucose POC Glucose 112 H Lactic Acid 2.70 H* Calcium Phosphorus Total Bilirubin AST ALT Total Creatine Kinase CK-MB (CK-2) Troponin T Total Protein Albumin HDL Cholesterol Salicylates Acetaminophen 10/11/18 10/11/18 10/11/18 14:41 15:27 16:13 WBC RBC Hgb Hct MCV RDW Plt Count Lymph % (Auto) [place] % (Auto) [place] # Seg Neutrophils % Seg Neuts % (Manual) Lymphocytes % (Manual) Monocytes % (Manual) Seg Neutrophils # Seg Neutrophils # Man Lymphocytes # (Manual) Monocytes # (Manual) APTT POC ABG pH POC ABG pCO2 POC ABG pO2 Sodium Potassium Chloride Carbon Dioxide BUN Creatinine Glucose POC Glucose 127 H 141 H 134 H Lactic Acid Calcium Phosphorus Total Bilirubin AST ALT Total Creatine Kinase CK-MB (CK-2) Troponin T Total Protein Albumin HDL Cholesterol Salicylates Acetaminophen 10/11/18 10/11/18 10/11/18 17:18 18:23 19:38 WBC RBC Hgb Hct MCV RDW Plt Count Lymph % (Auto) [place] % (Auto) [place] # Seg Neutrophils % Seg Neuts % (Manual) Lymphocytes % (Manual) Monocytes % (Manual) Seg Neutrophils # Seg Neutrophils # Man Lymphocytes # (Manual) Monocytes # (Manual) APTT POC ABG pH POC ABG pCO2 POC ABG pO2 Sodium 148 H Potassium Chloride 112.7 H Carbon Dioxide BUN 23 H Creatinine Glucose 143 H POC Glucose 132 H 129 H Lactic Acid Calcium 7.9 L Phosphorus Total Bilirubin AST ALT Total Creatine Kinase CK-MB (CK-2) Troponin T Total Protein Albumin HDL Cholesterol Salicylates Acetaminophen 10/11/18 10/11/18 10/11/18 20:19 20:36 21:01 WBC RBC Hgb Hct MCV RDW Plt Count Lymph % (Auto) [place] % (Auto) [place] # Seg Neutrophils % Seg Neuts % (Manual) Lymphocytes % (Manual) Monocytes % (Manual) Seg Neutrophils # Seg Neutrophils # Man Lymphocytes # (Manual) Monocytes # (Manual) APTT POC ABG pH 7.281 L POC ABG pCO2 POC ABG pO2 Sodium Potassium Chloride Carbon Dioxide BUN Creatinine Glucose POC Glucose 129 H 151 H Lactic Acid Calcium Phosphorus Total Bilirubin AST ALT Total Creatine Kinase CK-MB (CK-2) Troponin T Total Protein Albumin HDL Cholesterol Salicylates Acetaminophen 10/11/18 10/11/18 10/12/18 22:04 23:15 01:18 WBC RBC Hgb Hct MCV RDW Plt Count Lymph % (Auto) [place] % (Auto) [place] # Seg Neutrophils % Seg Neuts % (Manual) Lymphocytes % (Manual) Monocytes % (Manual) Seg Neutrophils # Seg Neutrophils # Man Lymphocytes # (Manual) Monocytes # (Manual) APTT POC ABG pH POC ABG pCO2 POC ABG pO2 Sodium Potassium Chloride Carbon Dioxide BUN Creatinine Glucose POC Glucose 147 H 143 H 158 H Lactic Acid Calcium Phosphorus Total Bilirubin AST ALT Total Creatine Kinase CK-MB (CK-2) Troponin T Total Protein Albumin HDL Cholesterol Salicylates Acetaminophen 10/12/18 10/12/18 10/12/18 02:13 03:18 04:04 WBC RBC Hgb Hct MCV RDW Plt Count Lymph % (Auto) [place] % (Auto) [place] # Seg Neutrophils % Seg Neuts % (Manual) Lymphocytes % (Manual) Monocytes % (Manual) Seg Neutrophils # Seg Neutrophils # Man Lymphocytes # (Manual) Monocytes # (Manual) APTT POC ABG pH POC ABG pCO2 POC ABG pO2 Sodium 147 H Potassium Chloride 111.1 H Carbon Dioxide BUN 30 H Creatinine 2.0 H Glucose 154 H POC Glucose 148 H 142 H Lactic Acid Calcium 8.1 L Phosphorus Total Bilirubin AST 269 H ALT 204 H Total Creatine Kinase 3647 H CK-MB (CK-2) 48.3 H Troponin T 2.230 H* D Total Protein 5.8 L Albumin 2.6 L HDL Cholesterol Salicylates Acetaminophen 10/12/18 10/12/18 10/12/18 04:04 04:08 04:19 WBC 24.4 H RBC Hgb Hct MCV RDW Plt Count Lymph % (Auto) [place] % (Auto) [place] # Seg Neutrophils % Seg Neuts % (Manual) 32.0 L Lymphocytes % (Manual) Monocytes % (Manual) 8.0 H Seg Neutrophils # Seg Neutrophils # Man 7.8 H Lymphocytes # (Manual) Monocytes # (Manual) 2.0 H APTT POC ABG pH 7.317 L POC ABG pCO2 49.3 H POC ABG pO2 Sodium Potassium Chloride Carbon Dioxide BUN Creatinine Glucose POC Glucose 143 H Lactic Acid Calcium Phosphorus Total Bilirubin AST ALT Total Creatine Kinase CK-MB (CK-2) Troponin T Total Protein Albumin HDL Cholesterol Salicylates Acetaminophen 10/12/18 10/12/18 10/12/18 05:29 06:52 08:09 WBC RBC Hgb Hct MCV RDW Plt Count Lymph % (Auto) [place] % (Auto) [place] # Seg Neutrophils % Seg Neuts % (Manual) Lymphocytes % (Manual) Monocytes % (Manual) Seg Neutrophils # Seg Neutrophils # Man Lymphocytes # (Manual) Monocytes # (Manual) APTT POC ABG pH 7.322 L POC ABG pCO2 46.5 H POC ABG pO2 Sodium Potassium Chloride Carbon Dioxide BUN Creatinine Glucose POC Glucose 196 H 226 H Lactic Acid Calcium Phosphorus Total Bilirubin AST ALT Total Creatine Kinase CK-MB (CK-2) Troponin T Total Protein Albumin HDL Cholesterol Salicylates Acetaminophen 10/12/18 10/12/18 10/12/18 08:38 10:03 15:50 WBC RBC Hgb Hct MCV RDW Plt Count Lymph % (Auto) [place] % (Auto) [place] # Seg Neutrophils % Seg Neuts % (Manual) Lymphocytes % (Manual) Monocytes % (Manual) Seg Neutrophils # Seg Neutrophils # Man Lymphocytes # (Manual) Monocytes # (Manual) APTT POC ABG pH POC ABG pCO2 POC ABG pO2 Sodium Potassium Chloride Carbon Dioxide BUN Creatinine Glucose POC Glucose 138 H 148 H 221 H Lactic Acid Calcium Phosphorus Total Bilirubin AST ALT Total Creatine Kinase CK-MB (CK-2) Troponin T Total Protein Albumin HDL Cholesterol Salicylates Acetaminophen 10/12/18 10/12/18 10/12/18 18:39 20:56 21:34 WBC RBC Hgb Hct MCV RDW Plt Count Lymph % (Auto) [place] % (Auto) [place] # Seg Neutrophils % Seg Neuts % (Manual) Lymphocytes % (Manual) Monocytes % (Manual) Seg Neutrophils # Seg Neutrophils # Man Lymphocytes # (Manual) Monocytes # (Manual) APTT POC ABG pH 7.336 L POC ABG pCO2 46.0 H POC ABG pO2 Sodium Potassium Chloride Carbon Dioxide BUN Creatinine Glucose POC Glucose 255 H 260 H Lactic Acid Calcium Phosphorus Total Bilirubin AST ALT Total Creatine Kinase CK-MB (CK-2) Troponin T Total Protein Albumin HDL Cholesterol Salicylates Acetaminophen 10/13/18 10/13/18 10/13/18 02:29 05:09 05:40 WBC 17.0 H RBC Hgb Hct MCV RDW Plt Count Lymph % (Auto) [place] % (Auto) 9.2 H [place] # 1.6 H Seg Neutrophils % 76.2 H Seg Neuts % (Manual) Lymphocytes % (Manual) Monocytes % (Manual) Seg Neutrophils # 12.9 H Seg Neutrophils # Man Lymphocytes # (Manual) Monocytes # (Manual) APTT POC ABG pH POC ABG pCO2 POC ABG pO2 Sodium Potassium Chloride Carbon Dioxide BUN Creatinine Glucose POC Glucose 216 H 249 H Lactic Acid Calcium Phosphorus Total Bilirubin AST ALT Total Creatine Kinase CK-MB (CK-2) Troponin T Total Protein Albumin HDL Cholesterol Salicylates Acetaminophen 10/13/18 10/13/18 10/13/18 05:40 05:40 09:46 WBC RBC Hgb Hct MCV RDW Plt Count Lymph % (Auto) [place] % (Auto) [place] # Seg Neutrophils % Seg Neuts % (Manual) Lymphocytes % (Manual) Monocytes % (Manual) Seg Neutrophils # Seg Neutrophils # Man Lymphocytes # (Manual) Monocytes # (Manual) APTT POC ABG pH POC ABG pCO2 POC ABG pO2 Sodium 146 H Potassium Chloride 109.8 H Carbon Dioxide BUN 35 H Creatinine Glucose 245 H POC Glucose 235 H Lactic Acid Calcium 7.9 L Phosphorus Total Bilirubin AST ALT Total Creatine Kinase CK-MB (CK-2) Troponin T 0.952 H* D Total Protein Albumin HDL Cholesterol Salicylates Acetaminophen 10/13/18 10/13/18 10/13/18 13:58 16:15 17:30 WBC RBC Hgb Hct MCV RDW Plt Count Lymph % (Auto) [place] % (Auto) [place] # Seg Neutrophils % Seg Neuts % (Manual) Lymphocytes % (Manual) Monocytes % (Manual) Seg Neutrophils # Seg Neutrophils # Man Lymphocytes # (Manual) Monocytes # (Manual) APTT POC ABG pH POC ABG pCO2 51.2 H POC ABG pO2 Sodium Potassium Chloride Carbon Dioxide BUN Creatinine Glucose POC Glucose 139 H Lactic Acid Calcium Phosphorus Total Bilirubin AST ALT Total Creatine Kinase CK-MB (CK-2) Troponin T 0.816 H* Total Protein Albumin HDL Cholesterol Salicylates Acetaminophen 10/13/18 10/14/18 10/14/18 21:25 01:49 04:52 WBC RBC Hgb Hct MCV RDW Plt Count Lymph % (Auto) [place] % (Auto) [place] # Seg Neutrophils % Seg Neuts % (Manual) Lymphocytes % (Manual) Monocytes % (Manual) Seg Neutrophils # Seg Neutrophils # Man Lymphocytes # (Manual) Monocytes # (Manual) APTT POC ABG pH POC ABG pCO2 56.0 H POC ABG pO2 Sodium Potassium Chloride Carbon Dioxide BUN Creatinine Glucose POC Glucose 205 H 166 H Lactic Acid Calcium Phosphorus Total Bilirubin AST ALT Total Creatine Kinase CK-MB (CK-2) Troponin T Total Protein Albumin HDL Cholesterol Salicylates Acetaminophen 10/14/18 10/14/18 10/14/18 05:32 09:45 09:45 WBC RBC Hgb 11.4 L Hct 34.5 L MCV RDW Plt Count 139 L Lymph % (Auto) [place] % (Auto) [place] # Seg Neutrophils % Seg Neuts % (Manual) Lymphocytes % (Manual) Monocytes % (Manual) Seg Neutrophils # Seg Neutrophils # Man Lymphocytes # (Manual) Monocytes # (Manual) APTT POC ABG pH POC ABG pCO2 POC ABG pO2 Sodium 148 H Potassium Chloride 107.3 H Carbon Dioxide 34 H D BUN Creatinine 0.7 L D Glucose 191 H POC Glucose 164 H Lactic Acid Calcium 7.3 L Phosphorus Total Bilirubin AST 110 H ALT 91 H Total Creatine Kinase CK-MB (CK-2) Troponin T Total Protein 4.9 L Albumin 2.0 L HDL Cholesterol Salicylates Acetaminophen 10/14/18 10/14/18 10/14/18 10:54 12:20 18:30 WBC RBC Hgb Hct MCV RDW Plt Count Lymph % (Auto) [place] % (Auto) [place] # Seg Neutrophils % Seg Neuts % (Manual) Lymphocytes % (Manual) Monocytes % (Manual) Seg Neutrophils # Seg Neutrophils # Man Lymphocytes # (Manual) Monocytes # (Manual) APTT POC ABG pH POC ABG pCO2 POC ABG pO2 Sodium Potassium Chloride Carbon Dioxide BUN Creatinine Glucose POC Glucose 173 H 158 H 108 H Lactic Acid Calcium Phosphorus Total Bilirubin AST ALT Total Creatine Kinase CK-MB (CK-2) Troponin T Total Protein Albumin HDL Cholesterol Salicylates Acetaminophen 10/14/18 10/15/18 10/15/18 21:54 02:12 04:19 WBC RBC Hgb Hct MCV RDW Plt Count Lymph % (Auto) [place] % (Auto) [place] # Seg Neutrophils % Seg Neuts % (Manual) Lymphocytes % (Manual) Monocytes % (Manual) Seg Neutrophils # Seg Neutrophils # Man Lymphocytes # (Manual) Monocytes # (Manual) APTT POC ABG pH 7.491 H POC ABG pCO2 45.1 H POC ABG pO2 Sodium Potassium Chloride Carbon Dioxide BUN Creatinine Glucose POC Glucose 110 H 164 H Lactic Acid Calcium Phosphorus Total Bilirubin AST ALT Total Creatine Kinase CK-MB (CK-2) Troponin T Total Protein Albumin HDL Cholesterol Salicylates Acetaminophen 10/15/18 10/15/18 10/15/18 04:55 05:43 06:20 WBC RBC Hgb 11.7 L Hct 34.7 L MCV RDW Plt Count Lymph % (Auto) [place] % (Auto) [place] # Seg Neutrophils % Seg Neuts % (Manual) Lymphocytes % (Manual) Monocytes % (Manual) Seg Neutrophils # Seg Neutrophils # Man Lymphocytes # (Manual) Monocytes # (Manual) APTT POC ABG pH POC ABG pCO2 47.3 H POC ABG pO2 78 L Sodium Potassium Chloride Carbon Dioxide BUN Creatinine Glucose POC Glucose 250 H Lactic Acid Calcium Phosphorus Total Bilirubin AST ALT Total Creatine Kinase CK-MB (CK-2) Troponin T Total Protein Albumin HDL Cholesterol Salicylates Acetaminophen 10/15/18 10/15/18 10/15/18 12:00 12:00 12:11 WBC RBC Hgb 11.5 L Hct 34.0 L MCV RDW Plt Count Lymph % (Auto) [place] % (Auto) [place] # Seg Neutrophils % Seg Neuts % (Manual) Lymphocytes % (Manual) Monocytes % (Manual) Seg Neutrophils # Seg Neutrophils # Man Lymphocytes # (Manual) Monocytes # (Manual) APTT POC ABG pH POC ABG pCO2 POC ABG pO2 Sodium 147 H Potassium Chloride 108.5 H Carbon Dioxide BUN Creatinine 0.7 L Glucose 209 H POC Glucose 197 H Lactic Acid Calcium 7.3 L Phosphorus Total Bilirubin AST ALT Total Creatine Kinase CK-MB (CK-2) Troponin T Total Protein Albumin HDL Cholesterol Salicylates Acetaminophen 10/15/18 10/15/18 10/15/18 15:48 18:34 21:29 WBC RBC Hgb Hct MCV RDW Plt Count Lymph % (Auto) [place] % (Auto) [place] # Seg Neutrophils % Seg Neuts % (Manual) Lymphocytes % (Manual) Monocytes % (Manual) Seg Neutrophils # Seg Neutrophils # Man Lymphocytes # (Manual) Monocytes # (Manual) APTT POC ABG pH POC ABG pCO2 POC ABG pO2 Sodium Potassium Chloride Carbon Dioxide BUN Creatinine Glucose POC Glucose 220 H 249 H 209 H Lactic Acid Calcium Phosphorus Total Bilirubin AST ALT Total Creatine Kinase CK-MB (CK-2) Troponin T Total Protein Albumin HDL Cholesterol Salicylates Acetaminophen 10/16/18 10/16/18 10/16/18 02:16 03:50 05:57 WBC RBC Hgb Hct MCV RDW Plt Count Lymph % (Auto) [place] % (Auto) [place] # Seg Neutrophils % Seg Neuts % (Manual) Lymphocytes % (Manual) Monocytes % (Manual) Seg Neutrophils # Seg Neutrophils # Man Lymphocytes # (Manual) Monocytes # (Manual) APTT POC ABG pH POC ABG pCO2 55.8 H POC ABG pO2 Sodium Potassium Chloride Carbon Dioxide BUN Creatinine Glucose POC Glucose 110 H 209 H Lactic Acid Calcium Phosphorus Total Bilirubin AST ALT Total Creatine Kinase CK-MB (CK-2) Troponin T Total Protein Albumin HDL Cholesterol Salicylates Acetaminophen 10/16/18 10/16/18 10/16/18 10:51 12:51 15:01 WBC RBC Hgb Hct MCV RDW Plt Count Lymph % (Auto) [place] % (Auto) [place] # Seg Neutrophils % Seg Neuts % (Manual) Lymphocytes % (Manual) Monocytes % (Manual) Seg Neutrophils # Seg Neutrophils # Man Lymphocytes # (Manual) Monocytes # (Manual) APTT POC ABG pH POC ABG pCO2 48.9 H POC ABG pO2 Sodium Potassium Chloride Carbon Dioxide BUN Creatinine Glucose POC Glucose 198 H 196 H Lactic Acid Calcium Phosphorus Total Bilirubin AST ALT Total Creatine Kinase CK-MB (CK-2) Troponin T Total Protein Albumin HDL Cholesterol Salicylates Acetaminophen 10/16/18 10/16/18 10/17/18 17:34 21:59 02:17 WBC RBC Hgb Hct MCV RDW Plt Count Lymph % (Auto) [place] % (Auto) [place] # Seg Neutrophils % Seg Neuts % (Manual) Lymphocytes % (Manual) Monocytes % (Manual) Seg Neutrophils # Seg Neutrophils # Man Lymphocytes # (Manual) Monocytes # (Manual) APTT POC ABG pH POC ABG pCO2 POC ABG pO2 Sodium Potassium Chloride Carbon Dioxide BUN Creatinine Glucose POC Glucose 179 H 139 H 135 H Lactic Acid Calcium Phosphorus Total Bilirubin AST ALT Total Creatine Kinase CK-MB (CK-2) Troponin T Total Protein Albumin HDL Cholesterol Salicylates Acetaminophen 10/17/18 10/17/18 10/17/18 05:40 05:47 10:18 WBC RBC Hgb 11.3 L Hct 33.2 L MCV RDW Plt Count Lymph % (Auto) [place] % (Auto) [place] # Seg Neutrophils % Seg Neuts % (Manual) Lymphocytes % (Manual) Monocytes % (Manual) Seg Neutrophils # Seg Neutrophils # Man Lymphocytes # (Manual) Monocytes # (Manual) APTT POC ABG pH POC ABG pCO2 POC ABG pO2 Sodium Potassium Chloride Carbon Dioxide BUN Creatinine Glucose POC Glucose 125 H 139 H Lactic Acid Calcium Phosphorus Total Bilirubin AST ALT Total Creatine Kinase CK-MB (CK-2) Troponin T Total Protein Albumin HDL Cholesterol Salicylates Acetaminophen 10/17/18 10/18/18 10/18/18 23:11 08:49 11:31 WBC RBC Hgb Hct MCV RDW Plt Count Lymph % (Auto) [place] % (Auto) [place] # Seg Neutrophils % Seg Neuts % (Manual) Lymphocytes % (Manual) Monocytes % (Manual) Seg Neutrophils # Seg Neutrophils # Man Lymphocytes # (Manual) Monocytes # (Manual) APTT POC ABG pH POC ABG pCO2 POC ABG pO2 Sodium Potassium Chloride Carbon Dioxide BUN Creatinine Glucose POC Glucose 165 H 125 H 182 H Lactic Acid Calcium Phosphorus Total Bilirubin AST ALT Total Creatine Kinase CK-MB (CK-2) Troponin T Total Protein Albumin HDL Cholesterol Salicylates Acetaminophen 10/18/18 10/18/18 10/19/18 16:12 21:02 00:28 WBC RBC Hgb 11.4 L Hct 33.6 L MCV RDW Plt Count Lymph % (Auto) [place] % (Auto) 14.0 H [place] # 1.2 H Seg Neutrophils % Seg Neuts % (Manual) Lymphocytes % (Manual) Monocytes % (Manual) Seg Neutrophils # Seg Neutrophils # Man Lymphocytes # (Manual) Monocytes # (Manual) APTT POC ABG pH POC ABG pCO2 POC ABG pO2 Sodium Potassium Chloride Carbon Dioxide BUN Creatinine Glucose POC Glucose 168 H 324 H Lactic Acid Calcium Phosphorus Total Bilirubin AST ALT Total Creatine Kinase CK-MB (CK-2) Troponin T Total Protein Albumin HDL Cholesterol Salicylates Acetaminophen 10/19/18 10/19/18 10/19/18 04:57 04:57 07:32 WBC RBC Hgb 11.7 L Hct 34.0 L MCV RDW Plt Count Lymph % (Auto) [place] % (Auto) [place] # Seg Neutrophils % Seg Neuts % (Manual) Lymphocytes % (Manual) Monocytes % (Manual) Seg Neutrophils # Seg Neutrophils # Man Lymphocytes # (Manual) Monocytes # (Manual) APTT POC ABG pH POC ABG pCO2 POC ABG pO2 Sodium Potassium 3.5 L Chloride 108.6 H Carbon Dioxide BUN Creatinine 0.6 L Glucose POC Glucose 159 H Lactic Acid Calcium 7.9 L Phosphorus Total Bilirubin AST ALT Total Creatine Kinase CK-MB (CK-2) Troponin T Total Protein Albumin HDL Cholesterol Salicylates Acetaminophen 10/19/18 10/19/18 10/20/18 16:25 20:59 12:04 WBC RBC Hgb Hct MCV RDW Plt Count Lymph % (Auto) [place] % (Auto) [place] # Seg Neutrophils % Seg Neuts % (Manual) Lymphocytes % (Manual) Monocytes % (Manual) Seg Neutrophils # Seg Neutrophils # Man Lymphocytes # (Manual) Monocytes # (Manual) APTT POC ABG pH POC ABG pCO2 POC ABG pO2 Sodium Potassium Chloride Carbon Dioxide BUN Creatinine Glucose POC Glucose 134 H 110 H 338 H Lactic Acid Calcium Phosphorus Total Bilirubin AST ALT Total Creatine Kinase CK-MB (CK-2) Troponin T Total Protein Albumin HDL Cholesterol Salicylates Acetaminophen 10/20/18 10/20/18 10/21/18 17:55 22:07 04:59 WBC RBC Hgb 11.6 L Hct 33.9 L MCV RDW Plt Count Lymph % (Auto) [place] % (Auto) 9.7 H [place] # 0.9 H Seg Neutrophils % 70.7 H Seg Neuts % (Manual) Lymphocytes % (Manual) Monocytes % (Manual) Seg Neutrophils # Seg Neutrophils # Man Lymphocytes # (Manual) Monocytes # (Manual) APTT POC ABG pH POC ABG pCO2 POC ABG pO2 Sodium Potassium Chloride Carbon Dioxide BUN Creatinine Glucose POC Glucose 146 H 164 H Lactic Acid Calcium Phosphorus Total Bilirubin AST ALT Total Creatine Kinase CK-MB (CK-2) Troponin T Total Protein Albumin HDL Cholesterol Salicylates Acetaminophen 10/21/18 10/21/18 10/21/18 04:59 07:52 11:39 WBC RBC Hgb Hct MCV RDW Plt Count Lymph % (Auto) [place] % (Auto) [place] # Seg Neutrophils % Seg Neuts % (Manual) Lymphocytes % (Manual) Monocytes % (Manual) Seg Neutrophils # Seg Neutrophils # Man Lymphocytes # (Manual) Monocytes # (Manual) APTT POC ABG pH POC ABG pCO2 POC ABG pO2 Sodium Potassium 3.5 L Chloride 107.1 H Carbon Dioxide BUN Creatinine 0.5 L Glucose 158 H POC Glucose 142 H 194 H Lactic Acid Calcium 7.5 L Phosphorus Total Bilirubin AST ALT Total Creatine Kinase CK-MB (CK-2) Troponin T Total Protein 5.6 L Albumin 2.0 L HDL Cholesterol Salicylates Acetaminophen 10/21/18 10/21/18 10/22/18 17:05 20:37 05:38 WBC RBC 3.48 L Hgb 10.8 L Hct 31.7 L MCV RDW Plt Count 458 H Lymph % (Auto) [place] % (Auto) 10.5 H [place] # Seg Neutrophils % Seg Neuts % (Manual) Lymphocytes % (Manual) Monocytes % (Manual) Seg Neutrophils # Seg Neutrophils # Man Lymphocytes # (Manual) Monocytes # (Manual) APTT POC ABG pH POC ABG pCO2 POC ABG pO2 Sodium Potassium Chloride Carbon Dioxide BUN Creatinine Glucose POC Glucose 167 H 182 H Lactic Acid Calcium Phosphorus Total Bilirubin AST ALT Total Creatine Kinase CK-MB (CK-2) Troponin T Total Protein Albumin HDL Cholesterol Salicylates Acetaminophen 10/22/18 10/22/18 10/22/18 05:38 07:48 12:08 WBC RBC Hgb Hct MCV RDW Plt Count Lymph % (Auto) [place] % (Auto) [place] # Seg Neutrophils % Seg Neuts % (Manual) Lymphocytes % (Manual) Monocytes % (Manual) Seg Neutrophils # Seg Neutrophils # Man Lymphocytes # (Manual) Monocytes # (Manual) APTT POC ABG pH POC ABG pCO2 POC ABG pO2 Sodium Potassium Chloride Carbon Dioxide BUN Creatinine 0.5 L Glucose 146 H POC Glucose 130 H 167 H Lactic Acid Calcium 7.8 L Phosphorus Total Bilirubin AST 41 H ALT Total Creatine Kinase CK-MB (CK-2) Troponin T Total Protein 5.5 L Albumin 2.1 L HDL Cholesterol Salicylates Acetaminophen 10/22/18 10/22/18 10/23/18 16:45 21:42 04:38 WBC RBC Hgb 11.7 L Hct 34.7 L MCV RDW Plt Count 523 H Lymph % (Auto) [place] % (Auto) 8.7 H [place] # Seg Neutrophils % 71.6 H Seg Neuts % (Manual) Lymphocytes % (Manual) Monocytes % (Manual) Seg Neutrophils # Seg Neutrophils # Man Lymphocytes # (Manual) Monocytes # (Manual) APTT POC ABG pH POC ABG pCO2 POC ABG pO2 Sodium Potassium Chloride Carbon Dioxide BUN Creatinine Glucose POC Glucose 113 H 134 H Lactic Acid Calcium Phosphorus Total Bilirubin AST ALT Total Creatine Kinase CK-MB (CK-2) Troponin T Total Protein Albumin HDL Cholesterol Salicylates Acetaminophen 10/23/18 10/23/18 10/23/18 04:38 07:56 11:15 WBC RBC Hgb Hct MCV RDW Plt Count Lymph % (Auto) [place] % (Auto) [place] # Seg Neutrophils % Seg Neuts % (Manual) Lymphocytes % (Manual) Monocytes % (Manual) Seg Neutrophils # Seg Neutrophils # Man Lymphocytes # (Manual) Monocytes # (Manual) APTT POC ABG pH POC ABG pCO2 POC ABG pO2 Sodium Potassium Chloride Carbon Dioxide BUN 7 L Creatinine 0.5 L Glucose 150 H POC Glucose 123 H 212 H Lactic Acid Calcium 8.0 L Phosphorus Total Bilirubin AST 55 H ALT Total Creatine Kinase CK-MB (CK-2) Troponin T Total Protein 6.2 L Albumin 2.3 L HDL Cholesterol Salicylates Acetaminophen 10/23/18 10/23/18 10/24/18 16:06 22:01 05:56 WBC 11.8 H RBC 3.64 L Hgb 11.2 L Hct 33.4 L MCV RDW Plt Count 564 H Lymph % (Auto) 11.3 L [place] % (Auto) [place] # Seg Neutrophils % 80.2 H Seg Neuts % (Manual) Lymphocytes % (Manual) Monocytes % (Manual) Seg Neutrophils # 9.4 H Seg Neutrophils # Man Lymphocytes # (Manual) Monocytes # (Manual) APTT POC ABG pH POC ABG pCO2 POC ABG pO2 Sodium Potassium Chloride Carbon Dioxide BUN Creatinine Glucose POC Glucose 152 H 235 H Lactic Acid Calcium Phosphorus Total Bilirubin AST ALT Total Creatine Kinase CK-MB (CK-2) Troponin T Total Protein Albumin HDL Cholesterol Salicylates Acetaminophen 10/24/18 10/24/18 10/24/18 05:56 07:52 11:58 WBC RBC Hgb Hct MCV RDW Plt Count Lymph % (Auto) [place] % (Auto) [place] # Seg Neutrophils % Seg Neuts % (Manual) Lymphocytes % (Manual) Monocytes % (Manual) Seg Neutrophils # Seg Neutrophils # Man Lymphocytes # (Manual) Monocytes # (Manual) APTT POC ABG pH POC ABG pCO2 POC ABG pO2 Sodium Potassium Chloride Carbon Dioxide BUN Creatinine 0.5 L Glucose 175 H POC Glucose 156 H 238 H Lactic Acid Calcium 8.0 L Phosphorus Total Bilirubin AST 44 H ALT Total Creatine Kinase CK-MB (CK-2) Troponin T Total Protein 6.2 L Albumin 2.4 L HDL Cholesterol Salicylates Acetaminophen 10/24/18 10/24/18 10/25/18 16:20 22:13 07:53 WBC RBC Hgb Hct MCV RDW Plt Count Lymph % (Auto) [place] % (Auto) [place] # Seg Neutrophils % Seg Neuts % (Manual) Lymphocytes % (Manual) Monocytes % (Manual) Seg Neutrophils # Seg Neutrophils # Man Lymphocytes # (Manual) Monocytes # (Manual) APTT POC ABG pH POC ABG pCO2 POC ABG pO2 Sodium Potassium Chloride Carbon Dioxide BUN Creatinine Glucose POC Glucose 60 L 261 H 211 H Lactic Acid Calcium Phosphorus Total Bilirubin AST ALT Total Creatine Kinase CK-MB (CK-2) Troponin T Total Protein Albumin HDL Cholesterol Salicylates Acetaminophen 10/25/18 10/25/18 10/25/18 11:03 16:02 22:45 WBC RBC Hgb Hct MCV RDW Plt Count Lymph % (Auto) [place] % (Auto) [place] # Seg Neutrophils % Seg Neuts % (Manual) Lymphocytes % (Manual) Monocytes % (Manual) Seg Neutrophils # Seg Neutrophils # Man Lymphocytes # (Manual) Monocytes # (Manual) APTT POC ABG pH POC ABG pCO2 POC ABG pO2 Sodium Potassium Chloride Carbon Dioxide BUN Creatinine Glucose POC Glucose 137 H 186 H 140 H Lactic Acid Calcium Phosphorus Total Bilirubin AST ALT Total Creatine Kinase CK-MB (CK-2) Troponin T Total Protein Albumin HDL Cholesterol Salicylates Acetaminophen 10/26/18 10/26/18 10/26/18 08:13 10:08 11:28 WBC RBC Hgb Hct MCV RDW Plt Count Lymph % (Auto) [place] % (Auto) [place] # Seg Neutrophils % Seg Neuts % (Manual) Lymphocytes % (Manual) Monocytes % (Manual) Seg Neutrophils # Seg Neutrophils # Man Lymphocytes # (Manual) Monocytes # (Manual) APTT POC ABG pH POC ABG pCO2 POC ABG pO2 Sodium Potassium Chloride Carbon Dioxide BUN Creatinine Glucose POC Glucose 144 H 110 H 201 H Lactic Acid Calcium Phosphorus Total Bilirubin AST ALT Total Creatine Kinase CK-MB (CK-2) Troponin T Total Protein Albumin HDL Cholesterol Salicylates Acetaminophen 10/26/18 10/26/18 10/27/18 16:36 22:29 07:34 WBC RBC Hgb Hct MCV RDW Plt Count Lymph % (Auto) [place] % (Auto) [place] # Seg Neutrophils % Seg Neuts % (Manual) Lymphocytes % (Manual) Monocytes % (Manual) Seg Neutrophils # Seg Neutrophils # Man Lymphocytes # (Manual) Monocytes # (Manual) APTT POC ABG pH POC ABG pCO2 POC ABG pO2 Sodium Potassium Chloride Carbon Dioxide BUN Creatinine Glucose POC Glucose 147 H 302 H 182 H Lactic Acid Calcium Phosphorus Total Bilirubin AST ALT Total Creatine Kinase CK-MB (CK-2) Troponin T Total Protein Albumin HDL Cholesterol Salicylates Acetaminophen 10/27/18 11:57 WBC RBC Hgb Hct MCV RDW Plt Count Lymph % (Auto) [place] % (Auto) [place] # Seg Neutrophils % Seg Neuts % (Manual) Lymphocytes % (Manual) Monocytes % (Manual) Seg Neutrophils # Seg Neutrophils # Man Lymphocytes # (Manual) Monocytes # (Manual) APTT POC ABG pH POC ABG pCO2 POC ABG pO2 Sodium Potassium Chloride Carbon Dioxide BUN Creatinine Glucose POC Glucose 209 H Lactic Acid Calcium Phosphorus Total Bilirubin AST ALT Total Creatine Kinase CK-MB (CK-2) Troponin T Total Protein Albumin HDL Cholesterol Salicylates Acetaminophen
--- NOTE | 2018-10-27 12:58 | Progress Note ---
Assessment and Plan 58-year-old male with multiple medical issues including multiple strokes status post partial craniectomy in March for prior strokes with bilateral lower extremity ischemia. 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 Hospitalist and neurology has cleared the patient for anticoagulation. Although there was plans for transition to rehab for 2 weeks, unfortunately the patient's pain is too great and the leg is undergoing necrosis making the risk of superinfection high. Left leg is undergoing necrosis. Unclear if enough tissue will be available for BKA vs AKA. Discussed with Dr. Payan and Dr. Anaya. If patient has cardiac clearance, then can plan on surgery on monday. Plan would be a left major amputation (BKA vs AKA to be determined based on residual non-necrotic tissue), aortoiliac stenting and fem-fem bypass. Discussed with the patient the risk of major adverse event including additional stroke, [place], and bleeding due to his poor underlying status, and his poor nutritional status. He will need nutritional consult as well. The alternernative is hospice which was discussed with the patient which he declined. OR notified for plans for surgery on monday. Transitioned patient from eliquis to heparin drip. After surgery, vascular will transition patient back from heparin drip to eliquis when appropriate. May also need right TMA, toe amputations, or to allow for autoamputation after major surgery. Subjective Date of service: 10/27/18 Principal diagnosis: Ac hypercapnic hypoxemic Resp failure; Drug OD; AE-COPD; NINOSKA; Seizures Interval history: Right forefoot ischemic. Left calf and foot are ischemic. Warm right calf and midfoot. Left mid calf cool. Patient told me to "cut off his leg" it hurts too much and he is tired of the pain. The leg is beginning to undergo necrosis. The right toes are mummified. Objective - Constitutional Vitals: Vital Signs - 12hr 10/27/18 10/27/18 10/27/18 05:18 07:30 07:40 Temperature 97.5 F L Pulse Rate 87 Pulse Rate [ 94 H 95 H Bilateral] Respiratory 16 Rate Respiratory 18 18 Rate [Bilateral ] Blood Pressure 91/48 Blood Pressure [Right] O2 Sat by Pulse 98 Oximetry 10/27/18 10/27/18 10/27/18 10:00 10:14 11:52 Temperature Pulse Rate 91 H 92 H Pulse Rate [ Bilateral] Respiratory Rate Respiratory Rate [Bilateral ] Blood Pressure Blood Pressure 98/61 [Right] O2 Sat by Pulse 96 98 Oximetry 10/27/18 11:53 Temperature 98.0 F Pulse Rate Pulse Rate [ Bilateral] Respiratory 19 Rate Respiratory Rate [Bilateral ] Blood Pressure 109/62 Blood Pressure [Right] O2 Sat by Pulse Oximetry General appearance: Present: mild distress (left leg discomfort, nurse notified about dilaudid) - EENT Eyes: EOM intact ENT: hearing intact - Respiratory Respiratory effort: normal Extremities: abnormal (see subjective) - Gastrointestinal General gastrointestinal: Present: soft, non-tender - Psychiatric Psychiatric: appropriate mood/affect, cooperative - Labs CBC & Chem 7: 10/24/18 05:56 10/24/18 05:56 Labs: Abnormal lab results 10/26/18 10/26/18 10/27/18 Range/Units 16:36 22:29 07:34 POC Glucose 147 H 302 H 182 H (70-105) 10/27/18 Range/Units 11:57 POC Glucose 209 H (70-105) Medications & Allergies - Medications Allergies/Adverse Reactions: Allergies No Known Allergies Allergy (Verified 10/31/14 11:20) Home Medications: Home Medications Medication Instructions Recorded Confirmed Last Taken Type Gabapentin [Neurontin] 90 mg PO Q8HR 04/22/15 04/22/15 04/21/15 History Ciprofloxacin HCl [Ciprofloxacin 500 mg PO Q12HR #30 tab 03/28/16 Unknown Rx TAB] RX: ALPRAZolam [Xanax TAB] 1 mg PO TID PRN #30 tablet 03/28/16 Unknown Rx RX: Albuterol Sulfate [Ventolin 2 puff IH Q4H PRN #1 [id number] 03/28/16 Unknown Rx HFA] RX: Citalopram [celeXA] 10 mg PO QDAY #30 tablet 03/28/16 Unknown Rx RX: Nicotine [Habitrol] 14 mg TD QDAY #30 patch 03/28/16 Unknown Rx RX: Sitagliptin Phos/Metformin HCl 1 tab PO QDAY #30 tbmp.24hr 03/28/16 Unknown Rx [Janumet XR 100-1,000 mg] RX: oxyCODONE /ACETAMINOPHEN 1 tab PO Q6H PRN #60 tablet 03/28/16 Unknown Rx [Percocet 5/325 mg] Active Medications: Generic Name Dose Route Start Last Admin Trade Name Freq PRN Reason Stop Dose Admin Acetaminophen 650 mg 10/11/18 04:04 10/21/18 22:21 Tylenol PO 650 mg Q4H PRN Administration Pain MILD(1-3)/Fever >100.5/HOLLINS Acetaminophen 650 mg 10/18/18 11:53 Tylenol ME Q4H PRN Pain, Mild(1-3)/Fever>100.5/HOLLINS Albuterol 2.5 mg 10/19/18 00:54 Proventil IH Q4HRT PRN Shortness Of Breath Albuterol/Ipratropium 1 ampul 10/19/18 08:00 10/27/18 07:55 Duoneb *Not For Prn Use* IH 1 ampul TIDRT ISAAC Administration Alprazolam 1 mg 10/20/18 13:06 10/27/18 10:25 Xanax PO 1 mg TID PRN Administration Anxiety Lipase/Protease/Amylase 1 each 10/18/18 13:[address] 10,500 Unit FEEDTUBE PRN PRN For Clogged Feeding Tube Citalopram Hydrobromide 10 mg 10/21/18 10:00 10/27/18 10:26 Celexa PO 10 mg QDAY ISAAC Administration Dextrose 0 ml 10/11/18 03:57 10/11/18 10:18 D50w (25gm) Syringe IV 10 ml PRN PRN Administration Hypoglycemia Famotidine 20 mg 10/15/18 10:00 10/27/18 10:25 Pepcid PO 20 mg BID ISAAC Administration Hydromorphone HCl 0.5 mg 10/27/18 12:04 Dilaudid IV Q4H PRN Pain , Severe (7-10) Hydrophilic Ointment 1 applic 10/11/18 14:00 Vaseline Lip Therapy TP Q2HR PRN Dry Lips Sodium Chloride 500 mls @ 50 mls/hr 10/26/18 08:00 Nacl 0.9% 500 Ml IV DIRECT ISAAC Heparin Sodium/Sodium Chloride 25,000 unit in 500 mls @ 19.35 mls/hr 10/27/18 13:00 Heparin/ 0.45% Nacl-25,000 Unit/500 Ml IV TITR ISAAC Protocol 15 UNITS/KG/HR Insulin Human Regular 0 units 10/17/18 11:30 10/27/18 09:01 Humulin R SUB-Q 3 units ACHS ISAAC Administration Protocol Metoprolol Tartrate 25 mg 10/18/18 22:00 10/27/18 10:26 Lopressor PO 25 mg BID ISAAC Administration Metoprolol Tartrate 2.5 mg 10/18/18 18:51 10/18/18 22:19 Lopressor IV 2.5 mg Q6H PRN Administration Tachyarrhythmias Multi-Ingred Cream/Lotion/Oil/Oint 1 applic 10/11/18 14:00 Artificial Tears Ophth Oint OU Q4HR PRN Dry Eye(s) Ondansetron HCl 4 mg 10/11/18 04:04 Zofran IV Q8H PRN Nausea And Vomiting Oxycodone/Acetaminophen 1 tab 10/18/18 13:45 10/27/18 12:04 Percocet 5/325 PO 1 tab Q6H PRN Administration Pain, Moderate (4-6) Quetiapine Fumarate 200 mg 10/14/18 22:00 10/26/18 22:18 Seroquel PO 200 mg QHS ISAAC Administration Sodium Bicarbonate 325 mg 10/18/18 13:43 Sodium Bicarbonate FEEDTUBE PRN PRN For Clogged Feeding Tube
[2018-10-27 14:28] LABS: Hematocrit 35.6 % (35.5-45.6)
[2018-10-27 14:29] LABS: INR 0.98 (0.87-1.13)
[2018-10-27 14:30] LABS: Partial Thromboplastin Time 30.3 Sec. (24.2-36.6)
[2018-10-27] MEDS: HEPARIN/ 0.45% NACL-25,000 UNIT/500 ML 25,000 UNIT/500 ML BAG IV SCH (14:37)
--- NOTE | 2018-10-27 19:18 | Progress Note ---
Assessment and Plan Patient has necrosis feet both legs. Patient weak and resting on 2 litres O2.O2 saturation 91%.No acute respiratory distress. - Patient Problems (1) Acute respiratory failure Current Visit: Yes Status: Acute Plan to address problem: O2 2 litres via nasal canula. Albuterol/atrovent aerosol treatments q 6 hours. Patient is on I/V heparin. Continue famotidine. (2) Acute CVA (cerebrovascular accident) Current Visit: Yes Status: Acute Plan to address problem: Management as per neurology. (3) Altered mental state Current Visit: Yes Status: Acute Qualifiers: Altered mental status type: unspecified Qualified Code(s): R41.82 - Altered mental status, unspecified Plan to address problem: Management as per primary care. (4) Atrial fibrillation Current Visit: Yes Status: Acute Plan to address problem: Management as per primary care and cardiology. Patient is on I/V heparin (5) Diabetes mellitus with hyperglycemia Current Visit: Yes Status: Acute Plan to address problem: Management as per primary care. (6) Polysubstance abuse Current Visit: Yes Status: Chronic Plan to address problem: Management as per primary care. (7) Tobacco use Current Visit: Yes Status: Chronic Plan to address problem: Counselled to stop smoking. Subjective Date of service: 10/27/18 Principal diagnosis: Ac hypercapnic hypoxemic Resp failure; Drug OD; AE-COPD; NINOSKA; Seizures Interval history: Patient has necrosis feet both legs. Patient weak and resting on 2 litres O2.O2 saturation 91%.No acute respiratory distress. Objective Vital Signs - 12hr 10/27/18 10/27/18 10/27/18 07:30 07:40 10:00 Temperature Pulse Rate Pulse Rate [ 94 H 95 H Bilateral] Respiratory Rate Respiratory 18 18 Rate [Bilateral ] Blood Pressure Blood Pressure [Right] O2 Sat by Pulse 96 Oximetry 10/27/18 10/27/18 10/27/18 10:14 11:52 11:53 Temperature 98.0 F Pulse Rate 91 H 92 H Pulse Rate [ Bilateral] Respiratory 19 Rate Respiratory Rate [Bilateral ] Blood Pressure 109/62 Blood Pressure 98/61 [Right] O2 Sat by Pulse 98 Oximetry 10/27/18 10/27/18 10/27/18 14:00 15:00 17:04 Temperature 97.9 F Pulse Rate 109 H Pulse Rate [ 109 H 108 H Bilateral] Respiratory 20 Rate Respiratory 18 18 Rate [Bilateral ] Blood Pressure 124/64 Blood Pressure [Right] O2 Sat by Pulse 91 Oximetry Constitutional: no acute distress, other (middle aged but chronically ill looking CM; Atraumatic) Eyes: non-icteric ENT: oropharynx moist, other (mallampati 2) Neck: supple, no lymphadenopathy, no JVD Effort: normal Ascultation: Bilateral: diminished breath sounds, rhonchi Percussion: Bilateral: not dull Cardiovascular: irregular rhythm, other (No R/M) Gastrointestinal: normoactive bowel sounds, soft, non-tender, non-distended Integumentary: other (poor turgor) Extremities: no edema, no ischemia or petechiae, other (cool left leg campbell-down; with digital gangrene of left foot also) Neurologic: normal mental status, pupils equal and round, other (Left hemiparesis, improving) Psychiatric: mood appropriate, affect normal CBC and BMP: 10/27/18 13:33 10/24/18 05:56 ABG, PT/INR, D-dimer: ABG POC ABG pH 7.393 (7.35-7.45) 10/16/18 12:51 POC ABG pCO2 48.9 (35-45) H 10/16/18 12:51 POC ABG pO2 92 (80-105) 10/16/18 12:51 POC ABG HCO3 29.8 (22-26 mml/L) 10/16/18 12:51 POC ABG Total CO2 31 (23-27mmol/L) 10/16/18 12:51 POC ABG O2 Sat 97 10/16/18 12:51 PT/INR, D-dimer PT 13.6 Sec. (12.2-14.9) 10/27/18 13:33 INR 0.98 (0.87-1.13) 10/27/18 13:33 Abnormal lab findings: Abnormal Labs 10/11/18 10/11/18 10/11/18 00:16 00:16 00:16 WBC 20.1 H RBC Hgb Hct MCV 98 H RDW 15.4 H Plt Count Lymph % (Auto) Moffat % (Auto) Moffat # Seg Neutrophils % Seg Neuts % (Manual) Lymphocytes % (Manual) 5.0 L Monocytes % (Manual) 25.0 H Seg Neutrophils # Seg Neutrophils # Man 9.2 H Lymphocytes # (Manual) 1.0 L Monocytes # (Manual) 5.0 H APTT POC ABG pH POC ABG pCO2 POC ABG pO2 Sodium Potassium 5.8 H Chloride Carbon Dioxide 17 L BUN Creatinine 2.2 H Glucose 348 H POC Glucose Lactic Acid 13.70 H* Calcium 7.7 L Phosphorus Total Bilirubin 1.50 H AST 179 H ALT 110 H Total Creatine Kinase 324 H CK-MB (CK-2) Troponin T 0.257 H* Total Protein 5.9 L Albumin 2.9 L HDL Cholesterol 19 L Salicylates Acetaminophen Crossmatch 10/11/18 10/11/18 10/11/18 00:16 00:16 01:21 WBC RBC Hgb Hct MCV RDW Plt Count Lymph % (Auto) [place] % (Auto) Moffat # Seg Neutrophils % Seg Neuts % (Manual) Lymphocytes % (Manual) Monocytes % (Manual) Seg Neutrophils # Seg Neutrophils # Man Lymphocytes # (Manual) Monocytes # (Manual) APTT POC ABG pH 7.110 L POC ABG pCO2 50.3 H POC ABG pO2 65 L Sodium Potassium Chloride Carbon Dioxide BUN Creatinine Glucose POC Glucose Lactic Acid Calcium Phosphorus Total Bilirubin AST ALT Total Creatine Kinase CK-MB (CK-2) Troponin T Total Protein Albumin HDL Cholesterol Salicylates < 0.3 L Acetaminophen < 5.0 L Crossmatch 10/11/18 10/11/18 10/11/18 01:22 03:27 04:14 WBC RBC Hgb Hct MCV RDW Plt Count Lymph % (Auto) [place] % (Auto) Moffat # Seg Neutrophils % Seg Neuts % (Manual) Lymphocytes % (Manual) Monocytes % (Manual) Seg Neutrophils # Seg Neutrophils # Man Lymphocytes # (Manual) Monocytes # (Manual) APTT POC ABG pH POC ABG pCO2 POC ABG pO2 Sodium Potassium Chloride Carbon Dioxide BUN Creatinine Glucose POC Glucose Lactic Acid 8.50 H* 4.10 H* Calcium Phosphorus 4.90 H Total Bilirubin AST ALT Total Creatine Kinase CK-MB (CK-2) Troponin T Total Protein Albumin HDL Cholesterol Salicylates Acetaminophen Crossmatch 10/11/18 10/11/18 10/11/18 04:14 04:14 04:14 WBC RBC Hgb Hct MCV RDW Plt Count Lymph % (Auto) [place] % (Auto) Moffat # Seg Neutrophils % Seg Neuts % (Manual) Lymphocytes % (Manual) Monocytes % (Manual) Seg Neutrophils # Seg Neutrophils # Man Lymphocytes # (Manual) Monocytes # (Manual) APTT POC ABG pH POC ABG pCO2 POC ABG pO2 Sodium Potassium 5.6 H Chloride Carbon Dioxide 19 L BUN Creatinine 1.6 H Glucose 329 H POC Glucose 328 H Lactic Acid Calcium 7.3 L Phosphorus Total Bilirubin AST ALT Total Creatine Kinase CK-MB (CK-2) Troponin T 1.130 H* D Total Protein Albumin HDL Cholesterol Salicylates Acetaminophen Crossmatch 10/11/18 10/11/18 10/11/18 05:10 05:32 05:58 WBC RBC Hgb Hct MCV RDW Plt Count Lymph % (Auto) [place] % (Auto) Moffat # Seg Neutrophils % Seg Neuts % (Manual) Lymphocytes % (Manual) Monocytes % (Manual) Seg Neutrophils # Seg Neutrophils # Man Lymphocytes # (Manual) Monocytes # (Manual) APTT POC ABG pH 7.259 L POC ABG pCO2 45.6 H POC ABG pO2 Sodium Potassium Chloride 108.6 H Carbon Dioxide 20 L BUN Creatinine 1.8 H Glucose 269 H POC Glucose 273 H Lactic Acid Calcium 7.0 L Phosphorus Total Bilirubin AST ALT Total Creatine Kinase CK-MB (CK-2) Troponin T Total Protein Albumin HDL Cholesterol Salicylates Acetaminophen Crossmatch 10/11/18 10/11/18 10/11/18 05:58 06:39 07:00 WBC RBC Hgb Hct MCV RDW Plt Count Lymph % (Auto) [place] % (Auto) Moffat # Seg Neutrophils % Seg Neuts % (Manual) Lymphocytes % (Manual) Monocytes % (Manual) Seg Neutrophils # Seg Neutrophils # Man Lymphocytes # (Manual) Monocytes # (Manual) APTT POC ABG pH POC ABG pCO2 POC ABG pO2 Sodium Potassium Chloride Carbon Dioxide BUN Creatinine Glucose POC Glucose 247 H Lactic Acid 3.20 H* 3.30 H* Calcium Phosphorus Total Bilirubin AST ALT Total Creatine Kinase CK-MB (CK-2) Troponin T Total Protein Albumin HDL Cholesterol Salicylates Acetaminophen Crossmatch 10/11/18 10/11/18 10/11/18 07:00 07:30 07:36 WBC RBC Hgb Hct MCV RDW Plt Count Lymph % (Auto) [place] % (Auto) Moffat # Seg Neutrophils % Seg Neuts % (Manual) Lymphocytes % (Manual) Monocytes % (Manual) Seg Neutrophils # Seg Neutrophils # Man Lymphocytes # (Manual) Monocytes # (Manual) APTT POC ABG pH POC ABG pCO2 POC ABG pO2 Sodium 146 H Potassium Chloride 112.1 H Carbon Dioxide 21 L BUN Creatinine 1.6 H Glucose 218 H POC Glucose Lactic Acid 3.20 H* Calcium 7.0 L Phosphorus Total Bilirubin AST ALT Total Creatine Kinase CK-MB (CK-2) Troponin T 1.020 H* Total Protein Albumin HDL Cholesterol Salicylates Acetaminophen Crossmatch 10/11/18 10/11/18 10/11/18 07:43 08:29 08:29 WBC RBC Hgb 16.2 H Hct 49.9 H D MCV RDW Plt Count Lymph % (Auto) [place] % (Auto) Moffat # Seg Neutrophils % Seg Neuts % (Manual) Lymphocytes % (Manual) Monocytes % (Manual) Seg Neutrophils # Seg Neutrophils # Man Lymphocytes # (Manual) Monocytes # (Manual) APTT POC ABG pH POC ABG pCO2 POC ABG pO2 Sodium Potassium Chloride Carbon Dioxide BUN Creatinine Glucose POC Glucose 174 H Lactic Acid 3.90 H* Calcium Phosphorus Total Bilirubin AST ALT Total Creatine Kinase CK-MB (CK-2) Troponin T Total Protein Albumin HDL Cholesterol Salicylates Acetaminophen Crossmatch 10/11/18 10/11/18 10/11/18 08:29 08:42 11:05 WBC RBC Hgb Hct MCV RDW Plt Count Lymph % (Auto) [place] % (Auto) Moffat # Seg Neutrophils % Seg Neuts % (Manual) Lymphocytes % (Manual) Monocytes % (Manual) Seg Neutrophils # Seg Neutrophils # Man Lymphocytes # (Manual) Monocytes # (Manual) APTT 24.1 L POC ABG pH POC ABG pCO2 POC ABG pO2 Sodium 147 H Potassium Chloride 113.3 H Carbon Dioxide 21 L BUN Creatinine 1.7 H Glucose 119 H POC Glucose 164 H Lactic Acid Calcium 7.7 L Phosphorus Total Bilirubin AST ALT Total Creatine Kinase CK-MB (CK-2) Troponin T Total Protein Albumin HDL Cholesterol Salicylates Acetaminophen Crossmatch 10/11/18 10/11/18 10/11/18 11:05 11:06 12:30 WBC RBC Hgb Hct MCV RDW Plt Count Lymph % (Auto) [place] % (Auto) Moffat # Seg Neutrophils % Seg Neuts % (Manual) Lymphocytes % (Manual) Monocytes % (Manual) Seg Neutrophils # Seg Neutrophils # Man Lymphocytes # (Manual) Monocytes # (Manual) APTT POC ABG pH POC ABG pCO2 POC ABG pO2 Sodium 148 H Potassium Chloride 113.4 H Carbon Dioxide 21 L BUN Creatinine 1.6 H Glucose 119 H POC Glucose 116 H Lactic Acid 3.20 H* Calcium 7.5 L Phosphorus Total Bilirubin AST ALT Total Creatine Kinase CK-MB (CK-2) Troponin T Total Protein Albumin HDL Cholesterol Salicylates Acetaminophen Crossmatch 10/11/18 10/11/18 10/11/18 12:30 13:16 13:25 WBC RBC Hgb Hct MCV RDW Plt Count Lymph % (Auto) [place] % (Auto) Moffat # Seg Neutrophils % Seg Neuts % (Manual) Lymphocytes % (Manual) Monocytes % (Manual) Seg Neutrophils # Seg Neutrophils # Man Lymphocytes # (Manual) Monocytes # (Manual) APTT POC ABG pH 7.247 L POC ABG pCO2 48.4 H POC ABG pO2 Sodium Potassium Chloride Carbon Dioxide BUN Creatinine Glucose POC Glucose 112 H Lactic Acid 2.70 H* Calcium Phosphorus Total Bilirubin AST ALT Total Creatine Kinase CK-MB (CK-2) Troponin T Total Protein Albumin HDL Cholesterol Salicylates Acetaminophen Crossmatch 10/11/18 10/11/18 10/11/18 14:41 15:27 16:13 WBC RBC Hgb Hct MCV RDW Plt Count Lymph % (Auto) [place] % (Auto) Moffat # Seg Neutrophils % Seg Neuts % (Manual) Lymphocytes % (Manual) Monocytes % (Manual) Seg Neutrophils # Seg Neutrophils # Man Lymphocytes # (Manual) Monocytes # (Manual) APTT POC ABG pH POC ABG pCO2 POC ABG pO2 Sodium Potassium Chloride Carbon Dioxide BUN Creatinine Glucose POC Glucose 127 H 141 H 134 H Lactic Acid Calcium Phosphorus Total Bilirubin AST ALT Total Creatine Kinase CK-MB (CK-2) Troponin T Total Protein Albumin HDL Cholesterol Salicylates Acetaminophen Crossmatch 10/11/18 10/11/18 10/11/18 17:18 18:23 19:38 WBC RBC Hgb Hct MCV RDW Plt Count Lymph % (Auto) [place] % (Auto) Moffat # Seg Neutrophils % Seg Neuts % (Manual) Lymphocytes % (Manual) Monocytes % (Manual) Seg Neutrophils # Seg Neutrophils # Man Lymphocytes # (Manual) Monocytes # (Manual) APTT POC ABG pH POC ABG pCO2 POC ABG pO2 Sodium 148 H Potassium Chloride 112.7 H Carbon Dioxide BUN 23 H Creatinine Glucose 143 H POC Glucose 132 H 129 H Lactic Acid Calcium 7.9 L Phosphorus Total Bilirubin AST ALT Total Creatine Kinase CK-MB (CK-2) Troponin T Total Protein Albumin HDL Cholesterol Salicylates Acetaminophen Crossmatch 10/11/18 10/11/18 10/11/18 20:19 20:36 21:01 WBC RBC Hgb Hct MCV RDW Plt Count Lymph % (Auto) [place] % (Auto) Moffat # Seg Neutrophils % Seg Neuts % (Manual) Lymphocytes % (Manual) Monocytes % (Manual) Seg Neutrophils # Seg Neutrophils # Man Lymphocytes # (Manual) Monocytes # (Manual) APTT POC ABG pH 7.281 L POC ABG pCO2 POC ABG pO2 Sodium Potassium Chloride Carbon Dioxide BUN Creatinine Glucose POC Glucose 129 H 151 H Lactic Acid Calcium Phosphorus Total Bilirubin AST ALT Total Creatine Kinase CK-MB (CK-2) Troponin T Total Protein Albumin HDL Cholesterol Salicylates Acetaminophen Crossmatch 10/11/18 10/11/18 10/12/18 22:04 23:15 01:18 WBC RBC Hgb Hct MCV RDW Plt Count Lymph % (Auto) [place] % (Auto) Moffat # Seg Neutrophils % Seg Neuts % (Manual) Lymphocytes % (Manual) Monocytes % (Manual) Seg Neutrophils # Seg Neutrophils # Man Lymphocytes # (Manual) Monocytes # (Manual) APTT POC ABG pH POC ABG pCO2 POC ABG pO2 Sodium Potassium Chloride Carbon Dioxide BUN Creatinine Glucose POC Glucose 147 H 143 H 158 H Lactic Acid Calcium Phosphorus Total Bilirubin AST ALT Total Creatine Kinase CK-MB (CK-2) Troponin T Total Protein Albumin HDL Cholesterol Salicylates Acetaminophen Crossmatch 10/12/18 10/12/18 10/12/18 02:13 03:18 04:04 WBC RBC Hgb Hct MCV RDW Plt Count Lymph % (Auto) [place] % (Auto) Moffat # Seg Neutrophils % Seg Neuts % (Manual) Lymphocytes % (Manual) Monocytes % (Manual) Seg Neutrophils # Seg Neutrophils # Man Lymphocytes # (Manual) Monocytes # (Manual) APTT POC ABG pH POC ABG pCO2 POC ABG pO2 Sodium 147 H Potassium Chloride 111.1 H Carbon Dioxide BUN 30 H Creatinine 2.0 H Glucose 154 H POC Glucose 148 H 142 H Lactic Acid Calcium 8.1 L Phosphorus Total Bilirubin AST 269 H ALT 204 H Total Creatine Kinase 3647 H CK-MB (CK-2) 48.3 H Troponin T 2.230 H* D Total Protein 5.8 L Albumin 2.6 L HDL Cholesterol Salicylates Acetaminophen Crossmatch 10/12/18 10/12/18 10/12/18 04:04 04:08 04:19 WBC 24.4 H RBC Hgb Hct MCV RDW Plt Count Lymph % (Auto) [place] % (Auto) Moffat # Seg Neutrophils % Seg Neuts % (Manual) 32.0 L Lymphocytes % (Manual) Monocytes % (Manual) 8.0 H Seg Neutrophils # Seg Neutrophils # Man 7.8 H Lymphocytes # (Manual) Monocytes # (Manual) 2.0 H APTT POC ABG pH 7.317 L POC ABG pCO2 49.3 H POC ABG pO2 Sodium Potassium Chloride Carbon Dioxide BUN Creatinine Glucose POC Glucose 143 H Lactic Acid Calcium Phosphorus Total Bilirubin AST ALT Total Creatine Kinase CK-MB (CK-2) Troponin T Total Protein Albumin HDL Cholesterol Salicylates Acetaminophen Crossmatch 10/12/18 10/12/18 10/12/18 05:29 06:52 08:09 WBC RBC Hgb Hct MCV RDW Plt Count Lymph % (Auto) [place] % (Auto) Moffat # Seg Neutrophils % Seg Neuts % (Manual) Lymphocytes % (Manual) Monocytes % (Manual) Seg Neutrophils # Seg Neutrophils # Man Lymphocytes # (Manual) Monocytes # (Manual) APTT POC ABG pH 7.322 L POC ABG pCO2 46.5 H POC ABG pO2 Sodium Potassium Chloride Carbon Dioxide BUN Creatinine Glucose POC Glucose 196 H 226 H Lactic Acid Calcium Phosphorus Total Bilirubin AST ALT Total Creatine Kinase CK-MB (CK-2) Troponin T Total Protein Albumin HDL Cholesterol Salicylates Acetaminophen Crossmatch 10/12/18 10/12/18 10/12/18 08:38 10:03 15:50 WBC RBC Hgb Hct MCV RDW Plt Count Lymph % (Auto) [place] % (Auto) Moffat # Seg Neutrophils % Seg Neuts % (Manual) Lymphocytes % (Manual) Monocytes % (Manual) Seg Neutrophils # Seg Neutrophils # Man Lymphocytes # (Manual) Monocytes # (Manual) APTT POC ABG pH POC ABG pCO2 POC ABG pO2 Sodium Potassium Chloride Carbon Dioxide BUN Creatinine Glucose POC Glucose 138 H 148 H 221 H Lactic Acid Calcium Phosphorus Total Bilirubin AST ALT Total Creatine Kinase CK-MB (CK-2) Troponin T Total Protein Albumin HDL Cholesterol Salicylates Acetaminophen Crossmatch 10/12/18 10/12/18 10/12/18 18:39 20:56 21:34 WBC RBC Hgb Hct MCV RDW Plt Count Lymph % (Auto) [place] % (Auto) Moffat # Seg Neutrophils % Seg Neuts % (Manual) Lymphocytes % (Manual) Monocytes % (Manual) Seg Neutrophils # Seg Neutrophils # Man Lymphocytes # (Manual) Monocytes # (Manual) APTT POC ABG pH 7.336 L POC ABG pCO2 46.0 H POC ABG pO2 Sodium Potassium Chloride Carbon Dioxide BUN Creatinine Glucose POC Glucose 255 H 260 H Lactic Acid Calcium Phosphorus Total Bilirubin AST ALT Total Creatine Kinase CK-MB (CK-2) Troponin T Total Protein Albumin HDL Cholesterol Salicylates Acetaminophen Crossmatch 10/13/18 10/13/18 10/13/18 02:29 05:09 05:40 WBC 17.0 H RBC Hgb Hct MCV RDW Plt Count Lymph % (Auto) M[place]at % (Auto) 9.2 H Moffat # 1.6 H Seg Neutrophils % 76.2 H Seg Neuts % (Manual) Lymphocytes % (Manual) Monocytes % (Manual) Seg Neutrophils # 12.9 H Seg Neutrophils # Man Lymphocytes # (Manual) Monocytes # (Manual) APTT POC ABG pH POC ABG pCO2 POC ABG pO2 Sodium Potassium Chloride Carbon Dioxide BUN Creatinine Glucose POC Glucose 216 H 249 H Lactic Acid Calcium Phosphorus Total Bilirubin AST ALT Total Creatine Kinase CK-MB (CK-2) Troponin T Total Protein Albumin HDL Cholesterol Salicylates Acetaminophen Crossmatch 10/13/18 10/13/18 10/13/18 05:40 05:40 09:46 WBC RBC Hgb Hct MCV RDW Plt Count Lymph % (Auto) [place] % (Auto) Moffat # Seg Neutrophils % Seg Neuts % (Manual) Lymphocytes % (Manual) Monocytes % (Manual) Seg Neutrophils # Seg Neutrophils # Man Lymphocytes # (Manual) Monocytes # (Manual) APTT POC ABG pH POC ABG pCO2 POC ABG pO2 Sodium 146 H Potassium Chloride 109.8 H Carbon Dioxide BUN 35 H Creatinine Glucose 245 H POC Glucose 235 H Lactic Acid Calcium 7.9 L Phosphorus Total Bilirubin AST ALT Total Creatine Kinase CK-MB (CK-2) Troponin T 0.952 H* D Total Protein Albumin HDL Cholesterol Salicylates Acetaminophen Crossmatch 10/13/18 10/13/18 10/13/18 13:58 16:15 17:30 WBC RBC Hgb Hct MCV RDW Plt Count Lymph % (Auto) [place] % (Auto) Moffat # Seg Neutrophils % Seg Neuts % (Manual) Lymphocytes % (Manual) Monocytes % (Manual) Seg Neutrophils # Seg Neutrophils # Man Lymphocytes # (Manual) Monocytes # (Manual) APTT POC ABG pH POC ABG pCO2 51.2 H POC ABG pO2 Sodium Potassium Chloride Carbon Dioxide BUN Creatinine Glucose POC Glucose 139 H Lactic Acid Calcium Phosphorus Total Bilirubin AST ALT Total Creatine Kinase CK-MB (CK-2) Troponin T 0.816 H* Total Protein Albumin HDL Cholesterol Salicylates Acetaminophen Crossmatch 10/13/18 10/14/18 10/14/18 21:25 01:49 04:52 WBC RBC Hgb Hct MCV RDW Plt Count Lymph % (Auto) [place] % (Auto) Moffat # Seg Neutrophils % Seg Neuts % (Manual) Lymphocytes % (Manual) Monocytes % (Manual) Seg Neutrophils # Seg Neutrophils # Man Lymphocytes # (Manual) Monocytes # (Manual) APTT POC ABG pH POC ABG pCO2 56.0 H POC ABG pO2 Sodium Potassium Chloride Carbon Dioxide BUN Creatinine Glucose POC Glucose 205 H 166 H Lactic Acid Calcium Phosphorus Total Bilirubin AST ALT Total Creatine Kinase CK-MB (CK-2) Troponin T Total Protein Albumin HDL Cholesterol Salicylates Acetaminophen Crossmatch 10/14/18 10/14/18 10/14/18 05:32 09:45 09:45 WBC RBC Hgb 11.4 L Hct 34.5 L MCV RDW Plt Count 139 L Lymph % (Auto) [place]off[place] % (Auto) Moffat # Seg Neutrophils % Seg Neuts % (Manual) Lymphocytes % (Manual) Monocytes % (Manual) Seg Neutrophils # Seg Neutrophils # Man Lymphocytes # (Manual) Monocytes # (Manual) APTT POC ABG pH POC ABG pCO2 POC ABG pO2 Sodium 148 H Potassium Chloride 107.3 H Carbon Dioxide 34 H D BUN Creatinine 0.7 L D Glucose 191 H POC Glucose 164 H Lactic Acid Calcium 7.3 L Phosphorus Total Bilirubin AST 110 H ALT 91 H Total Creatine Kinase CK-MB (CK-2) Troponin T Total Protein 4.9 L Albumin 2.0 L HDL Cholesterol Salicylates Acetaminophen Crossmatch 10/14/18 10/14/18 10/14/18 10:54 12:20 18:30 WBC RBC Hgb Hct MCV RDW Plt Count Lymph % (Auto) [place] % (Auto) Moffat # Seg Neutrophils % Seg Neuts % (Manual) Lymphocytes % (Manual) Monocytes % (Manual) Seg Neutrophils # Seg Neutrophils # Man Lymphocytes # (Manual) Monocytes # (Manual) APTT POC ABG pH POC ABG pCO2 POC ABG pO2 Sodium Potassium Chloride Carbon Dioxide BUN Creatinine Glucose POC Glucose 173 H 158 H 108 H Lactic Acid Calcium Phosphorus Total Bilirubin AST ALT Total Creatine Kinase CK-MB (CK-2) Troponin T Total Protein Albumin HDL Cholesterol Salicylates Acetaminophen Crossmatch 10/14/18 10/15/18 10/15/18 21:54 02:12 04:19 WBC RBC Hgb Hct MCV RDW Plt Count Lymph % (Auto) [place] % (Auto) Moffat # Seg Neutrophils % Seg Neuts % (Manual) Lymphocytes % (Manual) Monocytes % (Manual) Seg Neutrophils # Seg Neutrophils # Man Lymphocytes # (Manual) Monocytes # (Manual) APTT POC ABG pH 7.491 H POC ABG pCO2 45.1 H POC ABG pO2 Sodium Potassium Chloride Carbon Dioxide BUN Creatinine Glucose POC Glucose 110 H 164 H Lactic Acid Calcium Phosphorus Total Bilirubin AST ALT Total Creatine Kinase CK-MB (CK-2) Troponin T Total Protein Albumin HDL Cholesterol Salicylates Acetaminophen Crossmatch 10/15/18 10/15/18 10/15/18 04:55 05:43 06:20 WBC RBC Hgb 11.7 L Hct 34.7 L MCV RDW Plt Count Lymph % (Auto) [place] % (Auto) Moffat # Seg Neutrophils % Seg Neuts % (Manual) Lymphocytes % (Manual) Monocytes % (Manual) Seg Neutrophils # Seg Neutrophils # Man Lymphocytes # (Manual) Monocytes # (Manual) APTT POC ABG pH POC ABG pCO2 47.3 H POC ABG pO2 78 L Sodium Potassium Chloride Carbon Dioxide BUN Creatinine Glucose POC Glucose 250 H Lactic Acid Calcium Phosphorus Total Bilirubin AST ALT Total Creatine Kinase CK-MB (CK-2) Troponin T Total Protein Albumin HDL Cholesterol Salicylates Acetaminophen Crossmatch 10/15/18 10/15/18 10/15/18 12:00 12:00 12:11 WBC RBC Hgb 11.5 L Hct 34.0 L MCV RDW Plt Count Lymph % (Auto) [place] % (Auto) M[place]at # Seg Neutrophils % Seg Neuts % (Manual) Lymphocytes % (Manual) Monocytes % (Manual) Seg Neutrophils # Seg Neutrophils # Man Lymphocytes # (Manual) Monocytes # (Manual) APTT POC ABG pH POC ABG pCO2 POC ABG pO2 Sodium 147 H Potassium Chloride 108.5 H Carbon Dioxide BUN Creatinine 0.7 L Glucose 209 H POC Glucose 197 H Lactic Acid Calcium 7.3 L Phosphorus Total Bilirubin AST ALT Total Creatine Kinase CK-MB (CK-2) Troponin T Total Protein Albumin HDL Cholesterol Salicylates Acetaminophen Crossmatch 10/15/18 10/15/18 10/15/18 15:48 18:34 21:29 WBC RBC Hgb Hct MCV RDW Plt Count Lymph % (Auto) [place] % (Auto) Moff[place] # Seg Neutrophils % Seg Neuts % (Manual) Lymphocytes % (Manual) Monocytes % (Manual) Seg Neutrophils # Seg Neutrophils # Man Lymphocytes # (Manual) Monocytes # (Manual) APTT POC ABG pH POC ABG pCO2 POC ABG pO2 Sodium Potassium Chloride Carbon Dioxide BUN Creatinine Glucose POC Glucose 220 H 249 H 209 H Lactic Acid Calcium Phosphorus Total Bilirubin AST ALT Total Creatine Kinase CK-MB (CK-2) Troponin T Total Protein Albumin HDL Cholesterol Salicylates Acetaminophen Crossmatch 10/16/18 10/16/18 10/16/18 02:16 03:50 05:57 WBC RBC Hgb Hct MCV RDW Plt Count Lymph % (Auto) [place] % (Auto) Moffat # Seg Neutrophils % Seg Neuts % (Manual) Lymphocytes % (Manual) Monocytes % (Manual) Seg Neutrophils # Seg Neutrophils # Man Lymphocytes # (Manual) Monocytes # (Manual) APTT POC ABG pH POC ABG pCO2 55.8 H POC ABG pO2 Sodium Potassium Chloride Carbon Dioxide BUN Creatinine Glucose POC Glucose 110 H 209 H Lactic Acid Calcium Phosphorus Total Bilirubin AST ALT Total Creatine Kinase CK-MB (CK-2) Troponin T Total Protein Albumin HDL Cholesterol Salicylates Acetaminophen Crossmatch 10/16/18 10/16/18 10/16/18 10:51 12:51 15:01 WBC RBC Hgb Hct MCV RDW Plt Count Lymph % (Auto) [place] % (Auto) Moffat # Seg Neutrophils % Seg Neuts % (Manual) Lymphocytes % (Manual) Monocytes % (Manual) Seg Neutrophils # Seg Neutrophils # Man Lymphocytes # (Manual) Monocytes # (Manual) APTT POC ABG pH POC ABG pCO2 48.9 H POC ABG pO2 Sodium Potassium Chloride Carbon Dioxide BUN Creatinine Glucose POC Glucose 198 H 196 H Lactic Acid Calcium Phosphorus Total Bilirubin AST ALT Total Creatine Kinase CK-MB (CK-2) Troponin T Total Protein Albumin HDL Cholesterol Salicylates Acetaminophen Crossmatch 10/16/18 10/16/18 10/17/18 17:34 21:59 02:17 WBC RBC Hgb Hct MCV RDW Plt Count Lymph % (Auto) [place] % (Auto) Moffat # Seg Neutrophils % Seg Neuts % (Manual) Lymphocytes % (Manual) Monocytes % (Manual) Seg Neutrophils # Seg Neutrophils # Man Lymphocytes # (Manual) Monocytes # (Manual) APTT POC ABG pH POC ABG pCO2 POC ABG pO2 Sodium Potassium Chloride Carbon Dioxide BUN Creatinine Glucose POC Glucose 179 H 139 H 135 H Lactic Acid Calcium Phosphorus Total Bilirubin AST ALT Total Creatine Kinase CK-MB (CK-2) Troponin T Total Protein Albumin HDL Cholesterol Salicylates Acetaminophen Crossmatch 10/17/18 10/17/18 10/17/18 05:40 05:47 10:18 WBC RBC Hgb 11.3 L Hct 33.2 L MCV RDW Plt Count Lymph % (Auto) [place] % (Auto) [place] # Seg Neutrophils % Seg Neuts % (Manual) Lymphocytes % (Manual) Monocytes % (Manual) Seg Neutrophils # Seg Neutrophils # Man Lymphocytes # (Manual) Monocytes # (Manual) APTT POC ABG pH POC ABG pCO2 POC ABG pO2 Sodium Potassium Chloride Carbon Dioxide BUN Creatinine Glucose POC Glucose 125 H 139 H Lactic Acid Calcium Phosphorus Total Bilirubin AST ALT Total Creatine Kinase CK-MB (CK-2) Troponin T Total Protein Albumin HDL Cholesterol Salicylates Acetaminophen Crossmatch 10/17/18 10/18/18 10/18/18 23:11 08:49 11:31 WBC RBC Hgb Hct MCV RDW Plt Count Lymph % (Auto) [place] % (Auto) [place] # Seg Neutrophils % Seg Neuts % (Manual) Lymphocytes % (Manual) Monocytes % (Manual) Seg Neutrophils # Seg Neutrophils # Man Lymphocytes # (Manual) Monocytes # (Manual) APTT POC ABG pH POC ABG pCO2 POC ABG pO2 Sodium Potassium Chloride Carbon Dioxide BUN Creatinine Glucose POC Glucose 165 H 125 H 182 H Lactic Acid Calcium Phosphorus Total Bilirubin AST ALT Total Creatine Kinase CK-MB (CK-2) Troponin T Total Protein Albumin HDL Cholesterol Salicylates Acetaminophen Crossmatch 10/18/18 10/18/18 10/19/18 16:12 21:02 00:28 WBC RBC Hgb 11.4 L Hct 33.6 L MCV RDW Plt Count Lymph % (Auto) [place] % (Auto) 14.0 H [place] # 1.2 H Seg Neutrophils % Seg Neuts % (Manual) Lymphocytes % (Manual) Monocytes % (Manual) Seg Neutrophils # Seg Neutrophils # Man Lymphocytes # (Manual) Monocytes # (Manual) APTT POC ABG pH POC ABG pCO2 POC ABG pO2 Sodium Potassium Chloride Carbon Dioxide BUN Creatinine Glucose POC Glucose 168 H 324 H Lactic Acid Calcium Phosphorus Total Bilirubin AST ALT Total Creatine Kinase CK-MB (CK-2) Troponin T Total Protein Albumin HDL Cholesterol Salicylates Acetaminophen Crossmatch 10/19/18 10/19/18 10/19/18 04:57 04:57 07:32 WBC RBC Hgb 11.7 L Hct 34.0 L MCV RDW Plt Count Lymph % (Auto) [place] % (Auto) [place] # Seg Neutrophils % Seg Neuts % (Manual) Lymphocytes % (Manual) Monocytes % (Manual) Seg Neutrophils # Seg Neutrophils # Man Lymphocytes # (Manual) Monocytes # (Manual) APTT POC ABG pH POC ABG pCO2 POC ABG pO2 Sodium Potassium 3.5 L Chloride 108.6 H Carbon Dioxide BUN Creatinine 0.6 L Glucose POC Glucose 159 H Lactic Acid Calcium 7.9 L Phosphorus Total Bilirubin AST ALT Total Creatine Kinase CK-MB (CK-2) Troponin T Total Protein Albumin HDL Cholesterol Salicylates Acetaminophen Crossmatch 10/19/18 10/19/18 10/20/18 16:25 20:59 12:04 WBC RBC Hgb Hct MCV RDW Plt Count Lymph % (Auto) [place] % (Auto) [place] # Seg Neutrophils % Seg Neuts % (Manual) Lymphocytes % (Manual) Monocytes % (Manual) Seg Neutrophils # Seg Neutrophils # Man Lymphocytes # (Manual) Monocytes # (Manual) APTT POC ABG pH POC ABG pCO2 POC ABG pO2 Sodium Potassium Chloride Carbon Dioxide BUN Creatinine Glucose POC Glucose 134 H 110 H 338 H Lactic Acid Calcium Phosphorus Total Bilirubin AST ALT Total Creatine Kinase CK-MB (CK-2) Troponin T Total Protein Albumin HDL Cholesterol Salicylates Acetaminophen Crossmatch 10/20/18 10/20/18 10/21/18 17:55 22:07 04:59 WBC RBC Hgb 11.6 L Hct 33.9 L MCV RDW Plt Count Lymph % (Auto) [place] % (Auto) 9.7 H [place] # 0.9 H Seg Neutrophils % 70.7 H Seg Neuts % (Manual) Lymphocytes % (Manual) Monocytes % (Manual) Seg Neutrophils # Seg Neutrophils # Man Lymphocytes # (Manual) Monocytes # (Manual) APTT POC ABG pH POC ABG pCO2 POC ABG pO2 Sodium Potassium Chloride Carbon Dioxide BUN Creatinine Glucose POC Glucose 146 H 164 H Lactic Acid Calcium Phosphorus Total Bilirubin AST ALT Total Creatine Kinase CK-MB (CK-2) Troponin T Total Protein Albumin HDL Cholesterol Salicylates Acetaminophen Crossmatch 10/21/18 10/21/18 10/21/18 04:59 07:52 11:39 WBC RBC Hgb Hct MCV RDW Plt Count Lymph % (Auto) [place] % (Auto) [place] # Seg Neutrophils % Seg Neuts % (Manual) Lymphocytes % (Manual) Monocytes % (Manual) Seg Neutrophils # Seg Neutrophils # Man Lymphocytes # (Manual) Monocytes # (Manual) APTT POC ABG pH POC ABG pCO2 POC ABG pO2 Sodium Potassium 3.5 L Chloride 107.1 H Carbon Dioxide BUN Creatinine 0.5 L Glucose 158 H POC Glucose 142 H 194 H Lactic Acid Calcium 7.5 L Phosphorus Total Bilirubin AST ALT Total Creatine Kinase CK-MB (CK-2) Troponin T Total Protein 5.6 L Albumin 2.0 L HDL Cholesterol Salicylates Acetaminophen Crossmatch 10/21/18 10/21/18 10/22/18 17:05 20:37 05:38 WBC RBC 3.48 L Hgb 10.8 L Hct 31.7 L MCV RDW Plt Count 458 H Lymph % (Auto) [place] % (Auto) 10.5 H [place] # Seg Neutrophils % Seg Neuts % (Manual) Lymphocytes % (Manual) Monocytes % (Manual) Seg Neutrophils # Seg Neutrophils # Man Lymphocytes # (Manual) Monocytes # (Manual) APTT POC ABG pH POC ABG pCO2 POC ABG pO2 Sodium Potassium Chloride Carbon Dioxide BUN Creatinine Glucose POC Glucose 167 H 182 H Lactic Acid Calcium Phosphorus Total Bilirubin AST ALT Total Creatine Kinase CK-MB (CK-2) Troponin T Total Protein Albumin HDL Cholesterol Salicylates Acetaminophen Crossmatch 10/22/18 10/22/18 10/22/18 05:38 07:48 12:08 WBC RBC Hgb Hct MCV RDW Plt Count Lymph % (Auto) [place] % (Auto) [place] # Seg Neutrophils % Seg Neuts % (Manual) Lymphocytes % (Manual) Monocytes % (Manual) Seg Neutrophils # Seg Neutrophils # Man Lymphocytes # (Manual) Monocytes # (Manual) APTT POC ABG pH POC ABG pCO2 POC ABG pO2 Sodium Potassium Chloride Carbon Dioxide BUN Creatinine 0.5 L Glucose 146 H POC Glucose 130 H 167 H Lactic Acid Calcium 7.8 L Phosphorus Total Bilirubin AST 41 H ALT Total Creatine Kinase CK-MB (CK-2) Troponin T Total Protein 5.5 L Albumin 2.1 L HDL Cholesterol Salicylates Acetaminophen Crossmatch 10/22/18 10/22/18 10/23/18 16:45 21:42 04:38 WBC RBC Hgb 11.7 L Hct 34.7 L MCV RDW Plt Count 523 H Lymph % (Auto) [place] % (Auto) 8.7 H [place] # Seg Neutrophils % 71.6 H Seg Neuts % (Manual) Lymphocytes % (Manual) Monocytes % (Manual) Seg Neutrophils # Seg Neutrophils # Man Lymphocytes # (Manual) Monocytes # (Manual) APTT POC ABG pH POC ABG pCO2 POC ABG pO2 Sodium Potassium Chloride Carbon Dioxide BUN Creatinine Glucose POC Glucose 113 H 134 H Lactic Acid Calcium Phosphorus Total Bilirubin AST ALT Total Creatine Kinase CK-MB (CK-2) Troponin T Total Protein Albumin HDL Cholesterol Salicylates Acetaminophen Crossmatch 10/23/18 10/23/18 10/23/18 04:38 07:56 11:15 WBC RBC Hgb Hct MCV RDW Plt Count Lymph % (Auto) [place] % (Auto) [place] # Seg Neutrophils % Seg Neuts % (Manual) Lymphocytes % (Manual) Monocytes % (Manual) Seg Neutrophils # Seg Neutrophils # Man Lymphocytes # (Manual) Monocytes # (Manual) APTT POC ABG pH POC ABG pCO2 POC ABG pO2 Sodium Potassium Chloride Carbon Dioxide BUN 7 L Creatinine 0.5 L Glucose 150 H POC Glucose 123 H 212 H Lactic Acid Calcium 8.0 L Phosphorus Total Bilirubin AST 55 H ALT Total Creatine Kinase CK-MB (CK-2) Troponin T Total Protein 6.2 L Albumin 2.3 L HDL Cholesterol Salicylates Acetaminophen Crossmatch 10/23/18 10/23/18 10/24/18 16:06 22:01 05:56 WBC 11.8 H RBC 3.64 L Hgb 11.2 L Hct 33.4 L MCV RDW Plt Count 564 H Lymph % (Auto) 11.3 L [place] % (Auto) [place] # Seg Neutrophils % 80.2 H Seg Neuts % (Manual) Lymphocytes % (Manual) Monocytes % (Manual) Seg Neutrophils # 9.4 H Seg Neutrophils # Man Lymphocytes # (Manual) Monocytes # (Manual) APTT POC ABG pH POC ABG pCO2 POC ABG pO2 Sodium Potassium Chloride Carbon Dioxide BUN Creatinine Glucose POC Glucose 152 H 235 H Lactic Acid Calcium Phosphorus Total Bilirubin AST ALT Total Creatine Kinase CK-MB (CK-2) Troponin T Total Protein Albumin HDL Cholesterol Salicylates Acetaminophen Crossmatch 10/24/18 10/24/18 10/24/18 05:56 07:52 11:58 WBC RBC Hgb Hct MCV RDW Plt Count Lymph % (Auto) [place] % (Auto) [place] # Seg Neutrophils % Seg Neuts % (Manual) Lymphocytes % (Manual) Monocytes % (Manual) Seg Neutrophils # Seg Neutrophils # Man Lymphocytes # (Manual) Monocytes # (Manual) APTT POC ABG pH POC ABG pCO2 POC ABG pO2 Sodium Potassium Chloride Carbon Dioxide BUN Creatinine 0.5 L Glucose 175 H POC Glucose 156 H 238 H Lactic Acid Calcium 8.0 L Phosphorus Total Bilirubin AST 44 H ALT Total Creatine Kinase CK-MB (CK-2) Troponin T Total Protein 6.2 L Albumin 2.4 L HDL Cholesterol Salicylates Acetaminophen Crossmatch 10/24/18 10/24/18 10/25/18 16:20 22:13 07:53 WBC RBC Hgb Hct MCV RDW Plt Count Lymph % (Auto) [place] % (Auto) [place] # Seg Neutrophils % Seg Neuts % (Manual) Lymphocytes % (Manual) Monocytes % (Manual) Seg Neutrophils # Seg Neutrophils # Man Lymphocytes # (Manual) Monocytes # (Manual) APTT POC ABG pH POC ABG pCO2 POC ABG pO2 Sodium Potassium Chloride Carbon Dioxide BUN Creatinine Glucose POC Glucose 60 L 261 H 211 H Lactic Acid Calcium Phosphorus Total Bilirubin AST ALT Total Creatine Kinase CK-MB (CK-2) Troponin T Total Protein Albumin HDL Cholesterol Salicylates Acetaminophen Crossmatch 10/25/18 10/25/18 10/25/18 11:03 16:02 22:45 WBC RBC Hgb Hct MCV RDW Plt Count Lymph % (Auto) [place] % (Auto) [place] # Seg Neutrophils % Seg Neuts % (Manual) Lymphocytes % (Manual) Monocytes % (Manual) Seg Neutrophils # Seg Neutrophils # Man Lymphocytes # (Manual) Monocytes # (Manual) APTT POC ABG pH POC ABG pCO2 POC ABG pO2 Sodium Potassium Chloride Carbon Dioxide BUN Creatinine Glucose POC Glucose 137 H 186 H 140 H Lactic Acid Calcium Phosphorus Total Bilirubin AST ALT Total Creatine Kinase CK-MB (CK-2) Troponin T Total Protein Albumin HDL Cholesterol Salicylates Acetaminophen Crossmatch 10/26/18 10/26/18 10/26/18 08:13 10:08 11:28 WBC RBC Hgb Hct MCV RDW Plt Count Lymph % (Auto) [place] % (Auto) [place] # Seg Neutrophils % Seg Neuts % (Manual) Lymphocytes % (Manual) Monocytes % (Manual) Seg Neutrophils # Seg Neutrophils # Man Lymphocytes # (Manual) Monocytes # (Manual) APTT POC ABG pH POC ABG pCO2 POC ABG pO2 Sodium Potassium Chloride Carbon Dioxide BUN Creatinine Glucose POC Glucose 144 H 110 H 201 H Lactic Acid Calcium Phosphorus Total Bilirubin AST ALT Total Creatine Kinase CK-MB (CK-2) Troponin T Total Protein Albumin HDL Cholesterol Salicylates Acetaminophen Crossmatch 10/26/18 10/26/18 10/27/18 16:36 22:29 07:34 WBC RBC Hgb Hct MCV RDW Plt Count Lymph % (Auto) [place] % (Auto) [place] # Seg Neutrophils % Seg Neuts % (Manual) Lymphocytes % (Manual) Monocytes % (Manual) Seg Neutrophils # Seg Neutrophils # Man Lymphocytes # (Manual) Monocytes # (Manual) APTT POC ABG pH POC ABG pCO2 POC ABG pO2 Sodium Potassium Chloride Carbon Dioxide BUN Creatinine Glucose POC Glucose 147 H 302 H 182 H Lactic Acid Calcium Phosphorus Total Bilirubin AST ALT Total Creatine Kinase CK-MB (CK-2) Troponin T Total Protein Albumin HDL Cholesterol Salicylates Acetaminophen Crossmatch 10/27/18 10/27/18 10/27/18 11:57 13:33 14:55 WBC RBC Hgb Hct MCV RDW Plt Count 550 H Lymph % (Auto) [place] % (Auto) [place] # Seg Neutrophils % Seg Neuts % (Manual) Lymphocytes % (Manual) Monocytes % (Manual) Seg Neutrophils # Seg Neutrophils # Man Lymphocytes # (Manual) Monocytes # (Manual) APTT POC ABG pH POC ABG pCO2 POC ABG pO2 Sodium Potassium Chloride Carbon Dioxide BUN Creatinine Glucose POC Glucose 209 H Lactic Acid Calcium Phosphorus Total Bilirubin AST ALT Total Creatine Kinase CK-MB (CK-2) Troponin T Total Protein Albumin HDL Cholesterol Salicylates Acetaminophen Crossmatch See Detail 10/27/18 17:09 WBC RBC Hgb Hct MCV RDW Plt Count Lymph % (Auto) [place] % (Auto) [place] # Seg Neutrophils % Seg Neuts % (Manual) Lymphocytes % (Manual) Monocytes % (Manual) Seg Neutrophils # Seg Neutrophils # Man Lymphocytes # (Manual) Monocytes # (Manual) APTT POC ABG pH POC ABG pCO2 POC ABG pO2 Sodium Potassium Chloride Carbon Dioxide BUN Creatinine Glucose POC Glucose 233 H Lactic Acid Calcium Phosphorus Total Bilirubin AST ALT Total Creatine Kinase CK-MB (CK-2) Troponin T Total Protein Albumin HDL Cholesterol Salicylates Acetaminophen Crossmatch Allied health notes reviewed: nursing
[2018-10-28] MEDS: DILAUDID IV PRN ×5 (02:53→22:14)
[2018-10-28] MEDS ORDERED: DILAUDID IV PRN (03:35)
[2018-10-28] MEDS: PERCOCET 5/325 PO PRN (05:46)
[2018-10-28] MEDS: HumuLIN R SUB-Q SCH ×4 (07:30→23:22)
[2018-10-28] MEDS: DUONEB *Not for PRN Use IH SCH ×3 (08:22→20:31)
[2018-10-28] MEDS: XANAX PO PRN ×2 (08:37→16:48)
--- NOTE | 2018-10-28 09:06 | Progress Note ---
Assessment and Plan Assessment and plan: --Bilateral lower extremity PVD with gangrene left greater than right. The patient has distal aortic thrombus and right external iliac occlusion and left popliteal and infrapopliteal occlusion. Vascular surgery reports that Plan would be a left major amputation (BKA vs AKA to be determined based on residual non-necrotic tissue), aortoiliac stenting and fem-fem bypass. Transitioned patient from eliquis to heparin drip. After surgery, vascular will transition patient back from heparin drip to eliquis when appropriate. May also need right TMA, toe amputations, or to allow for autoamputation after major surgery. --acute/subacute right FT CVA Initial CT head, no acute finding, 10/13/18 found to have left-sided weakness MRI brain showed numerous acute/subacute multilobar infarcts involving the cere gustabo and cerebellum including Hemorrhagic transformation of the right frontal and biparietal lobes was Not a candidate for tPA, monitor off aspirin per teleneurology QUIQUE ; no thrombus or shunt, Speech recommended pureed diet --Severe sepsis with shock; present on admission Probably due to aspiration pneumonia, completed total 7 days of antibiotics off pressors --Paroxysmal atrial fibrillation. Currently on heparin drip --LLL pneumonia : completed treatment --Acute respiratory failure with hypoxia and hypercapnia: Requiring intubation, extubated, nebs , supplemental O2 as needed --Hyperglycemia:cont SSI for now, diabetic diet --Acute toxic/metabolic encephalopathy, improved --Seizure; seizure precautions, no new episodes of seizure Ativan when necessary, neurology did not recommend antiepileptic medications --Elevated troponin/NSTEMI type 2 Echocardiogram for further evaluation - Ef 25-30% Cardiology consulted, medical Mx for now, --Acute systolic CHF, Ef 25-30%, anti-failure medications --ARF, due to vasomotor nephropathy, resolved --Hyperkalemia, resolved --Abnormal LFT Probably due to sepsis and chronic hepatitis C virus infection Abdominal US showed no sign of cirrhosis --Severe protein calorie malnutrition; nutrition supplements Dietitian consulted --DVT prophylaxis with heparin and GI prophylaxis with famotidine --Tobacco abuse. Patient with a long smoking history of one pack per day or more since age 9. Patient was counseled on smoking cessation. Disposition: Plan is for surgery tomorrow if cleared by cardiology. History Interval history: No new issues overnight. Hospitalist Physical - Constitutional Vitals: Temp Pulse Resp BP Pulse Ox 98.1 F 83 20 131/90 95 10/28/18 05:32 10/28/18 05:51 10/28/18 05:51 10/28/18 05:31 10/28/18 05:51 General appearance: Present: no acute distress - EENT Eyes: Present: PERRL, EOM intact ENT: hearing intact, clear oral mucosa, dentition normal - Neck Neck: Present: supple, normal ROM - Respiratory Respiratory effort: normal Respiratory: bilateral: CTA - Cardiovascular Rhythm: regular Heart Sounds: Present: S1 & S2. Absent: gallop, rub - Extremities Extremities: no ischemia, No edema, Full ROM - Abdominal General gastrointestinal: soft, non-tender, non-distended, normal bowel sounds - Integumentary Integumentary: Present: clear, warm, dry - Neurologic Neurologic: CNII-XII intact, moves all extremities Results - Labs CBC & Chem 7: 10/27/18 13:33 10/24/18 05:56 Labs: Laboratory Last Values WBC 11.8 K/mm3 (4.5-11.0) H 10/24/18 05:56 RBC 3.64 M/mm3 (3.65-5.03) L 10/24/18 05:56 Hgb 13.0 gm/dl (11.8-15.2) 10/27/18 13:33 Hct 35.6 % (35.5-45.6) 10/27/18 13:33 MCV 92 fl (84-94) 10/24/18 05:56 MCH 31 pg (28-32) 10/24/18 05:56 MCHC 34 % (32-34) 10/24/18 05:56 RDW 14.2 % (13.2-15.2) 10/24/18 05:56 Plt Count 550 K/mm3 (140-440) H 10/27/18 13:33 Lymph % (Auto) 11.3 % (13.4-35.0) L 10/24/18 05:56 Millard % (Auto) 7.1 % (0.0-7.3) 10/24/18 05:56 Eos % (Auto) 1.0 % (0.0-4.3) 10/24/18 05:56 Baso % (Auto) 0.4 % (0.0-1.8) 10/24/18 05:56 Lymph # 1.3 K/mm3 (1.2-5.4) 10/24/18 05:56 Millard # 0.8 K/mm3 (0.0-0.8) 10/24/18 05:56 Eos # 0.1 K/mm3 (0.0-0.4) 10/24/18 05:56 Baso # 0.0 K/mm3 (0.0-0.1) 10/24/18 05:56 Add Manual Diff Complete 10/12/18 04:04 Total Counted 100 10/12/18 04:04 Seg Neutrophils % 80.2 % (40.0-70.0) H 10/24/18 05:56 Seg Neuts % (Manual) 32.0 % (40.0-70.0) L 10/12/18 04:04 39.0 % 10/12/18 04:04 19.0 % (13.4-35.0) 10/12/18 04:04 Reactive Lymphs % (Man) 0 % 10/12/18 04:04 8.0 % (0.0-7.3) H 10/12/18 04:04 0 % (0.0-4.3) 10/12/18 04:04 0 % (0.0-1.8) 10/12/18 04:04 2.0 % 10/12/18 04:04 0 % 10/12/18 04:04 0 % 10/12/18 04:04 0 % 10/12/18 04:04 Nucleated RBC % Not Reportable 10/12/18 04:04 Seg Neutrophils # 9.4 K/mm3 (1.8-7.7) H 10/24/18 05:56 Seg Neutrophils # Man 7.8 K/mm3 (1.8-7.7) H 10/12/18 04:04 Band Neutrophils # 9.5 K/mm3 10/12/18 04:04 4.6 K/mm3 (1.2-5.4) 10/12/18 04:04 Abs React Lymphs (Man) 0.0 K/mm3 10/12/18 04:04 2.0 K/mm3 (0.0-0.8) H 10/12/18 04:04 0.0 K/mm3 (0.0-0.4) 10/12/18 04:04 0.0 K/mm3 (0.0-0.1) 10/12/18 04:04 0.5 K/mm3 10/12/18 04:04 0.0 K/mm3 10/12/18 04:04 0.0 K/mm3 10/12/18 04:04 Blast Cells # 0.0 K/mm3 10/12/18 04:04 Pathologist Review 10/11/18 00:16 WBC Morphology Not Reportable 10/12/18 04:04 Hypersegmented Neuts Not Reportable 10/12/18 04:04 Hyposegmented Neuts Not Reportable 10/12/18 04:04 Hypogranular Neuts Not Reportable 10/12/18 04:04 Not Reportable 10/12/18 04:04 Not Reportable 10/12/18 04:04 Not Reportable 10/12/18 04:04 Not Reportable 10/12/18 04:04 Not Reportable 10/12/18 04:04 Not Reportable 10/12/18 04:04 Appears normal 10/12/18 04:04 Not Reportable 10/12/18 04:04 Plt Clumps, EDTA Not Reportable 10/12/18 04:04 Not Reportable 10/12/18 04:04 Not Reportable 10/12/18 04:04 Not Reportable 10/12/18 04:04 Plt Morphology Comment Not Reportable 10/12/18 04:04 RBC Morphology Not Reportable 10/12/18 04:04 Dimorphic RBCs Not Reportable 10/12/18 04:04 Not Reportable 10/12/18 04:04 Not Reportable 10/12/18 04:04 Not Reportable 10/12/18 04:04 1+ 10/12/18 04:04 Not Reportable 10/12/18 04:04 Not Reportable 10/12/18 04:04 Not Reportable 10/12/18 04:04 Not Reportable 10/12/18 04:04 Not Reportable 10/12/18 04:04 Not Reportable 10/12/18 04:04 Not Reportable 10/12/18 04:04 Not Reportable 10/12/18 04:04 Not Reportable 10/12/18 04:04 Not Reportable 10/12/18 04:04 Not Reportable 10/12/18 04:04 Not Reportable 10/12/18 04:04 Not Reportable 10/12/18 04:04 Not Reportable 10/12/18 04:04 Not Reportable 10/12/18 04:04 Acanthocytes (Spur) Not Reportable 10/12/18 04:04 Rouleaux Not Reportable 10/12/18 04:04 Not Reportable 10/12/18 04:04 Not Reportable 10/12/18 04:04 Not Reportable 10/12/18 04:04 Not Reportable 10/12/18 04:04 Hem Pathologist Commnt No 10/12/18 04:04 PT 13.6 Sec. (12.2-14.9) 10/27/18 13:33 INR 0.98 (0.87-1.13) 10/27/18 13:33 APTT 30.3 Sec. (24.2-36.6) 10/27/18 13:33 Heparin Anti-Xa Level 0.56 U.I./ml (0.3-0.7) 10/27/18 20:15 Heparin Anti-Xa, Unfract Negative (Negative) 10/15/18 12:00 POC ABG pH 7.393 (7.35-7.45) 10/16/18 12:51 POC ABG pCO2 48.9 (35-45) H 10/16/18 12:51 POC ABG pO2 92 (80-105) 10/16/18 12:51 POC ABG HCO3 29.8 (22-26 mml/L) 10/16/18 12:51 POC ABG Total CO2 31 (23-27mmol/L) 10/16/18 12:51 POC ABG O2 Sat 97 10/16/18 12:51 POC ABG Base Excess 5 ((-2) - (+3)mmol/L) 10/16/18 12:51 35 % 10/16/18 12:51 Sodium 138 mmol/L (137-145) 10/24/18 05:56 Potassium 4.4 mmol/L (3.6-5.0) 10/24/18 05:56 Chloride 102.0 mmol/L (98-107) 10/24/18 05:56 Carbon Dioxide 29 mmol/L (22-30) 10/24/18 05:56 11 mmol/L 10/24/18 05:56 BUN 9 mg/dL (9-20) 10/24/18 05:56 0.5 mg/dL (0.8-1.5) L 10/24/18 05:56 Estimated GFR > 60 ml/min 10/24/18 05:56 18 % 10/24/18 05:56 Glucose 175 mg/dL (75-100) H 10/24/18 05:56 POC Glucose 201 (70-105) H 10/28/18 07:45 Lactic Acid 2.70 mmol/L (0.7-2.0) H* 10/11/18 12:30 Calcium 8.0 mg/dL (8.4-10.2) L 10/24/18 05:56 Phosphorus 2.80 mg/dL (2.5-4.5) 10/21/18 04:59 Magnesium 1.90 mg/dL (1.7-2.3) 10/21/18 04:59 0.30 mg/dL (0.1-1.2) 10/24/18 05:56 AST 44 units/L (5-40) H 10/24/18 05:56 ALT 40 units/L (7-56) 10/24/18 05:56 57 units/L (35-129) 10/24/18 05:56 3647 units/L (55-170) H 10/12/18 04:04 CK-MB (CK-2) 48.3 ng/mL (0.0-4.0) H 10/12/18 04:04 CK-MB (CK-2) Rel Index 1.3 (0-4) 10/12/18 04:04 0.816 ng/mL (0.00-0.029) H* 10/13/18 16:15 6.2 g/dL (6.3-8.2) L 10/24/18 05:56 2.4 g/dL (3.9-5) L 10/24/18 05:56 0.6 % 10/24/18 05:56 Triglycerides 87 mg/dL (2-149) 10/11/18 00:16 Cholesterol 73 mg/dL (50-199) 10/11/18 00:16 51 mg/dL (50-130) 10/11/18 00:16 19 mg/dL (40-59) L 10/11/18 00:16 3.84 % 10/11/18 00:16 See scanned report 10/15/18 12:00 Yellow (Yellow) 10/11/18 01:42 Cloudy (Clear) 10/11/18 01:42 6.0 (5.0-7.0) 10/11/18 01:42 Ur Specific Holt 1.011 (1.003-1.030) 10/11/18 01:42 100 mg/dl mg/dL (Negative) 10/11/18 01:42 >=500 mg/dL (Negative) 10/11/18 01:42 Neg mg/dL (Negative) 10/11/18 01:42 Mod (Negative) 10/11/18 01:42 Neg (Negative) 10/11/18 01:42 Neg (Negative) 10/11/18 01:42 4.0 mg/dL (<2.0) 10/11/18 01:42 Ur Leukocyte Esterase Neg (Negative) 10/11/18 01:42 5.0 /HPF (0.0-6.0) 10/11/18 01:42 2.0 /HPF (0.0-6.0) 10/11/18 01:42 U Epithel Cells (Auto) < 1.0 /HPF (0-13.0) 10/11/18 01:42 Amorphous Crystals 1+ 10/11/18 01:42 Few /HPF 10/11/18 01:42 2+ /HPF (M[employer]) 10/11/18 01:42 Vancomycin Trough 8.3 ug/mL (5.0-20.0) 10/13/18 05:40 Salicylates < 0.3 mg/dL (2.8-20.0) L 10/11/18 00:16 Presumptive positive 10/11/18 01:42 Presumptive negative 10/11/18 01:42 Acetaminophen < 5.0 ug/mL (10.0-30.0) L 10/11/18 00:16 Ur Barbiturates Screen Presumptive negative 10/11/18 01:42 Ur Phencyclidine Scrn Presumptive negative 10/11/18 01:42 Ur Amphetamines Screen Presumptive positive 10/11/18 01:42 U Benzodiazepines Scrn Presumptive positive 10/11/18 01:42 Presumptive negative 10/11/18 01:42 U Marijuana (THC) Screen Presumptive negative 10/11/18 01:42 Disclamer 10/11/18 01:42 Plasma/Serum Alcohol < 0.01 % (0-0.07) 10/11/18 00:16 Heparin-induced Plt Ab Negative (Negative) 10/15/18 12:00 UF Heparin High Dose 0 % Release 10/15/18 12:00 AURELIO UFH Low Dose 0.1 0 % Release 10/15/18 12:00 AURELIO UFH Low Dose 0.5 0 % Release 10/15/18 12:00 Blood Type O POSITIVE 10/27/18 14:55 Antibody Screen Positive 10/27/18 14:55 Crossmatch See Detail 10/27/18 14:55 Active Medications - Current Medications Current Medications: Generic Name Dose Route Start Last Admin Trade Name Freq PRN Reason Stop Dose Admin Acetaminophen 650 mg 10/11/18 04:04 10/21/18 22:21 Tylenol PO 650 mg Q4H PRN Administration Pain MILD(1-3)/Fever >100.5/HOLLINS Acetaminophen 650 mg 10/18/18 11:53 Tylenol VT Q4H PRN Pain, Mild(1-3)/Fever>100.5/HOLLINS Albuterol 2.5 mg 10/19/18 00:54 Proventil IH Q4HRT PRN Shortness Of Breath Albuterol/Ipratropium 1 ampul 10/19/18 08:00 10/28/18 08:22 Duoneb *Not For Prn Use* IH Not Given TIDRT ISAAC Alprazolam 1 mg 10/20/18 13:06 10/28/18 08:37 Xanax PO 1 mg TID PRN Administration Anxiety Lipase/Protease/Amylase 1 each 10/18/18 13:[address] 10,500 Unit FEEDTUBE PRN PRN For Clogged Feeding Tube Citalopram Hydrobromide 10 mg 10/21/18 10:00 10/27/18 10:26 Celexa PO 10 mg QDAY ISAAC Administration Dextrose 0 ml 10/11/18 03:57 10/11/18 10:18 D50w (25gm) Syringe IV 10 ml PRN PRN Administration Hypoglycemia Famotidine 20 mg 10/15/18 10:00 10/27/18 21:18 Pepcid PO 20 mg BID ISACA Administration Hydromorphone HCl 1 mg 10/28/18 03:35 Dilaudid IV Q6H PRN Pain , Severe (7-10) Hydrophilic Ointment 1 applic 10/11/18 14:00 Vaseline Lip Therapy TP Q2HR PRN Dry Lips Sodium Chloride 500 mls @ 50 mls/hr 10/26/18 08:00 Nacl 0.9% 500 Ml IV DIRECT ISAAC Heparin Sodium/Sodium Chloride 25,000 unit in 500 mls @ 18 mls/hr 10/27/18 14:00 10/27/18 21:13 Heparin/ 0.45% Nacl-25,000 Unit/500 Ml IV 900 units/hr TITR ISAAC 18 mls/hr Titration Protocol 900 UNITS/HR Insulin Human Regular 0 units 10/17/18 11:30 10/28/18 07:30 Humulin R SUB-Q 4 units ACHS ISAAC Administration Protocol Metoprolol Tartrate 25 mg 10/18/18 22:00 10/27/18 21:18 Lopressor PO 25 mg BID ISAAC Administration Metoprolol Tartrate 2.5 mg 10/18/18 18:51 10/18/18 22:19 Lopressor IV 2.5 mg Q6H PRN Administration Tachyarrhythmias Multi-Ingred Cream/Lotion/Oil/Oint 1 applic 10/11/18 14:00 Artificial Tears Ophth Oint OU Q4HR PRN Dry Eye(s) Ondansetron HCl 4 mg 10/11/18 04:04 Zofran IV Q8H PRN Nausea And Vomiting Oxycodone/Acetaminophen 1 tab 10/18/18 13:45 10/28/18 05:46 Percocet 5/325 PO 1 tab Q6H PRN Administration Pain, Moderate (4-6) Quetiapine Fumarate 200 mg 10/14/18 22:00 10/27/18 22:00 Seroquel PO Not Given QHS ISAAC Sodium Bicarbonate 325 mg 10/18/18 13:43 Sodium Bicarbonate FEEDTUBE PRN PRN For Clogged Feeding Tube Nutrition/Malnutrition Assess - Dietary Evaluation Nutrition/Malnutrition Findings: Nutrition Notes Start: 10/11/18 12:39 Freq: Status: Active Protocol: Document 10/25/18 16:48 RM (Rec: 10/25/18 16:52 RM [id number]) Nutrition Notes Initial or Follow up Brief Note Current Diet NPO Subjective/Other Information Pt remains NPO for possible revascularization. Nutrition Intervention Follow-Up By: 10/29/18 Additional Comments Follow for diet advancement, PO and ONS intakes
[2018-10-28] MEDS: celeXA PO SCH (09:09)
[2018-10-28] MEDS: LOPRESSOR PO SCH ×2 (09:09→22:15)
--- NOTE | 2018-10-28 09:44 | Event Note ---
Date: 10/28/18 Tentatively scheduled for surgery tomorrow. Awaiting cardiology evaluation.
--- NOTE | 2018-10-28 10:07 | Progress Note ---
Subjective Date of service: 10/28/18 Principal diagnosis: Ac hypercapnic hypoxemic Resp failure; Drug OD; AE-COPD; NINOSKA; Seizures Interval history: left a note on the need for the Eliquis therapy no seizures observed Objective - Vital Sign Vital Signs - 12hr 10/28/18 10/28/18 10/28/18 05:31 05:32 05:51 Temperature 98.1 F 98.1 F Pulse Rate 84 83 Respiratory 20 20 20 Rate Blood Pressure 131/90 O2 Sat by Pulse 90 95 Oximetry 10/28/18 09:09 Temperature Pulse Rate 83 Respiratory Rate Blood Pressure 130/90 O2 Sat by Pulse Oximetry - Laboratory Findings CBC and BMP: 10/27/18 13:33 10/24/18 05:56 Abnormal Lab Findings: Abnormal Labs 10/11/18 10/11/18 10/11/18 00:16 00:16 00:16 WBC 20.1 H RBC Hgb Hct MCV 98 H RDW 15.4 H Plt Count Lymph % (Auto) [place] % (Auto) [place] # Seg Neutrophils % Seg Neuts % (Manual) Lymphocytes % (Manual) 5.0 L Monocytes % (Manual) 25.0 H Seg Neutrophils # Seg Neutrophils # Man 9.2 H Lymphocytes # (Manual) 1.0 L Monocytes # (Manual) 5.0 H APTT POC ABG pH POC ABG pCO2 POC ABG pO2 Sodium Potassium 5.8 H Chloride Carbon Dioxide 17 L BUN Creatinine 2.2 H Glucose 348 H POC Glucose Lactic Acid 13.70 H* Calcium 7.7 L Phosphorus Total Bilirubin 1.50 H AST 179 H ALT 110 H Total Creatine Kinase 324 H CK-MB (CK-2) Troponin T 0.257 H* Total Protein 5.9 L Albumin 2.9 L HDL Cholesterol 19 L Salicylates Acetaminophen Crossmatch 10/11/18 10/11/18 10/11/18 00:16 00:16 01:21 WBC RBC Hgb Hct MCV RDW Plt Count Lymph % (Auto) [place] % (Auto) [place] # Seg Neutrophils % Seg Neuts % (Manual) Lymphocytes % (Manual) Monocytes % (Manual) Seg Neutrophils # Seg Neutrophils # Man Lymphocytes # (Manual) Monocytes # (Manual) APTT POC ABG pH 7.110 L POC ABG pCO2 50.3 H POC ABG pO2 65 L Sodium Potassium Chloride Carbon Dioxide BUN Creatinine Glucose POC Glucose Lactic Acid Calcium Phosphorus Total Bilirubin AST ALT Total Creatine Kinase CK-MB (CK-2) Troponin T Total Protein Albumin HDL Cholesterol Salicylates < 0.3 L Acetaminophen < 5.0 L Crossmatch 10/11/18 10/11/18 10/11/18 01:22 03:27 04:14 WBC RBC Hgb Hct MCV RDW Plt Count Lymph % (Auto) [place] % (Auto) [place] # Seg Neutrophils % Seg Neuts % (Manual) Lymphocytes % (Manual) Monocytes % (Manual) Seg Neutrophils # Seg Neutrophils # Man Lymphocytes # (Manual) Monocytes # (Manual) APTT POC ABG pH POC ABG pCO2 POC ABG pO2 Sodium Potassium Chloride Carbon Dioxide BUN Creatinine Glucose POC Glucose Lactic Acid 8.50 H* 4.10 H* Calcium Phosphorus 4.90 H Total Bilirubin AST ALT Total Creatine Kinase CK-MB (CK-2) Troponin T Total Protein Albumin HDL Cholesterol Salicylates Acetaminophen Crossmatch 10/11/18 10/11/18 10/11/18 04:14 04:14 04:14 WBC RBC Hgb Hct MCV RDW Plt Count Lymph % (Auto) [place] % (Auto) [place] # Seg Neutrophils % Seg Neuts % (Manual) Lymphocytes % (Manual) Monocytes % (Manual) Seg Neutrophils # Seg Neutrophils # Man Lymphocytes # (Manual) Monocytes # (Manual) APTT POC ABG pH POC ABG pCO2 POC ABG pO2 Sodium Potassium 5.6 H Chloride Carbon Dioxide 19 L BUN Creatinine 1.6 H Glucose 329 H POC Glucose 328 H Lactic Acid Calcium 7.3 L Phosphorus Total Bilirubin AST ALT Total Creatine Kinase CK-MB (CK-2) Troponin T 1.130 H* D Total Protein Albumin HDL Cholesterol Salicylates Acetaminophen Crossmatch 10/11/18 10/11/18 10/11/18 05:10 05:32 05:58 WBC RBC Hgb Hct MCV RDW Plt Count Lymph % (Auto) [place] % (Auto) [place] # Seg Neutrophils % Seg Neuts % (Manual) Lymphocytes % (Manual) Monocytes % (Manual) Seg Neutrophils # Seg Neutrophils # Man Lymphocytes # (Manual) Monocytes # (Manual) APTT POC ABG pH 7.259 L POC ABG pCO2 45.6 H POC ABG pO2 Sodium Potassium Chloride 108.6 H Carbon Dioxide 20 L BUN Creatinine 1.8 H Glucose 269 H POC Glucose 273 H Lactic Acid Calcium 7.0 L Phosphorus Total Bilirubin AST ALT Total Creatine Kinase CK-MB (CK-2) Troponin T Total Protein Albumin HDL Cholesterol Salicylates Acetaminophen Crossmatch 10/11/18 10/11/18 10/11/18 05:58 06:39 07:00 WBC RBC Hgb Hct MCV RDW Plt Count Lymph % (Auto) [place] % (Auto) [place] # Seg Neutrophils % Seg Neuts % (Manual) Lymphocytes % (Manual) Monocytes % (Manual) Seg Neutrophils # Seg Neutrophils # Man Lymphocytes # (Manual) Monocytes # (Manual) APTT POC ABG pH POC ABG pCO2 POC ABG pO2 Sodium Potassium Chloride Carbon Dioxide BUN Creatinine Glucose POC Glucose 247 H Lactic Acid 3.20 H* 3.30 H* Calcium Phosphorus Total Bilirubin AST ALT Total Creatine Kinase CK-MB (CK-2) Troponin T Total Protein Albumin HDL Cholesterol Salicylates Acetaminophen Crossmatch 10/11/18 10/11/18 10/11/18 07:00 07:30 07:36 WBC RBC Hgb Hct MCV RDW Plt Count Lymph % (Auto) [place] % (Auto) [place] # Seg Neutrophils % Seg Neuts % (Manual) Lymphocytes % (Manual) Monocytes % (Manual) Seg Neutrophils # Seg Neutrophils # Man Lymphocytes # (Manual) Monocytes # (Manual) APTT POC ABG pH POC ABG pCO2 POC ABG pO2 Sodium 146 H Potassium Chloride 112.1 H Carbon Dioxide 21 L BUN Creatinine 1.6 H Glucose 218 H POC Glucose Lactic Acid 3.20 H* Calcium 7.0 L Phosphorus Total Bilirubin AST ALT Total Creatine Kinase CK-MB (CK-2) Troponin T 1.020 H* Total Protein Albumin HDL Cholesterol Salicylates Acetaminophen Crossmatch 10/11/18 10/11/18 10/11/18 07:43 08:29 08:29 WBC RBC Hgb 16.2 H Hct 49.9 H D MCV RDW Plt Count Lymph % (Auto) [place] % (Auto) [place] # Seg Neutrophils % Seg Neuts % (Manual) Lymphocytes % (Manual) Monocytes % (Manual) Seg Neutrophils # Seg Neutrophils # Man Lymphocytes # (Manual) Monocytes # (Manual) APTT POC ABG pH POC ABG pCO2 POC ABG pO2 Sodium Potassium Chloride Carbon Dioxide BUN Creatinine Glucose POC Glucose 174 H Lactic Acid 3.90 H* Calcium Phosphorus Total Bilirubin AST ALT Total Creatine Kinase CK-MB (CK-2) Troponin T Total Protein Albumin HDL Cholesterol Salicylates Acetaminophen Crossmatch 10/11/18 10/11/18 10/11/18 08:29 08:42 11:05 WBC RBC Hgb Hct MCV RDW Plt Count Lymph % (Auto) [place] % (Auto) [place] # Seg Neutrophils % Seg Neuts % (Manual) Lymphocytes % (Manual) Monocytes % (Manual) Seg Neutrophils # Seg Neutrophils # Man Lymphocytes # (Manual) Monocytes # (Manual) APTT 24.1 L POC ABG pH POC ABG pCO2 POC ABG pO2 Sodium 147 H Potassium Chloride 113.3 H Carbon Dioxide 21 L BUN Creatinine 1.7 H Glucose 119 H POC Glucose 164 H Lactic Acid Calcium 7.7 L Phosphorus Total Bilirubin AST ALT Total Creatine Kinase CK-MB (CK-2) Troponin T Total Protein Albumin HDL Cholesterol Salicylates Acetaminophen Crossmatch 10/11/18 10/11/18 10/11/18 11:05 11:06 12:30 WBC RBC Hgb Hct MCV RDW Plt Count Lymph % (Auto) [place] % (Auto) [place] # Seg Neutrophils % Seg Neuts % (Manual) Lymphocytes % (Manual) Monocytes % (Manual) Seg Neutrophils # Seg Neutrophils # Man Lymphocytes # (Manual) Monocytes # (Manual) APTT POC ABG pH POC ABG pCO2 POC ABG pO2 Sodium 148 H Potassium Chloride 113.4 H Carbon Dioxide 21 L BUN Creatinine 1.6 H Glucose 119 H POC Glucose 116 H Lactic Acid 3.20 H* Calcium 7.5 L Phosphorus Total Bilirubin AST ALT Total Creatine Kinase CK-MB (CK-2) Troponin T Total Protein Albumin HDL Cholesterol Salicylates Acetaminophen Crossmatch 10/11/18 10/11/18 10/11/18 12:30 13:16 13:25 WBC RBC Hgb Hct MCV RDW Plt Count Lymph % (Auto) [place] % (Auto) [place] # Seg Neutrophils % Seg Neuts % (Manual) Lymphocytes % (Manual) Monocytes % (Manual) Seg Neutrophils # Seg Neutrophils # Man Lymphocytes # (Manual) Monocytes # (Manual) APTT POC ABG pH 7.247 L POC ABG pCO2 48.4 H POC ABG pO2 Sodium Potassium Chloride Carbon Dioxide BUN Creatinine Glucose POC Glucose 112 H Lactic Acid 2.70 H* Calcium Phosphorus Total Bilirubin AST ALT Total Creatine Kinase CK-MB (CK-2) Troponin T Total Protein Albumin HDL Cholesterol Salicylates Acetaminophen Crossmatch 10/11/18 10/11/18 10/11/18 14:41 15:27 16:13 WBC RBC Hgb Hct MCV RDW Plt Count Lymph % (Auto) [place] % (Auto) [place] # Seg Neutrophils % Seg Neuts % (Manual) Lymphocytes % (Manual) Monocytes % (Manual) Seg Neutrophils # Seg Neutrophils # Man Lymphocytes # (Manual) Monocytes # (Manual) APTT POC ABG pH POC ABG pCO2 POC ABG pO2 Sodium Potassium Chloride Carbon Dioxide BUN Creatinine Glucose POC Glucose 127 H 141 H 134 H Lactic Acid Calcium Phosphorus Total Bilirubin AST ALT Total Creatine Kinase CK-MB (CK-2) Troponin T Total Protein Albumin HDL Cholesterol Salicylates Acetaminophen Crossmatch 10/11/18 10/11/18 10/11/18 17:18 18:23 19:38 WBC RBC Hgb Hct MCV RDW Plt Count Lymph % (Auto) [place] % (Auto) [place] # Seg Neutrophils % Seg Neuts % (Manual) Lymphocytes % (Manual) Monocytes % (Manual) Seg Neutrophils # Seg Neutrophils # Man Lymphocytes # (Manual) Monocytes # (Manual) APTT POC ABG pH POC ABG pCO2 POC ABG pO2 Sodium 148 H Potassium Chloride 112.7 H Carbon Dioxide BUN 23 H Creatinine Glucose 143 H POC Glucose 132 H 129 H Lactic Acid Calcium 7.9 L Phosphorus Total Bilirubin AST ALT Total Creatine Kinase CK-MB (CK-2) Troponin T Total Protein Albumin HDL Cholesterol Salicylates Acetaminophen Crossmatch 10/11/18 10/11/18 10/11/18 20:19 20:36 21:01 WBC RBC Hgb Hct MCV RDW Plt Count Lymph % (Auto) [place] % (Auto) [place] # Seg Neutrophils % Seg Neuts % (Manual) Lymphocytes % (Manual) Monocytes % (Manual) Seg Neutrophils # Seg Neutrophils # Man Lymphocytes # (Manual) Monocytes # (Manual) APTT POC ABG pH 7.281 L POC ABG pCO2 POC ABG pO2 Sodium Potassium Chloride Carbon Dioxide BUN Creatinine Glucose POC Glucose 129 H 151 H Lactic Acid Calcium Phosphorus Total Bilirubin AST ALT Total Creatine Kinase CK-MB (CK-2) Troponin T Total Protein Albumin HDL Cholesterol Salicylates Acetaminophen Crossmatch 10/11/18 10/11/18 10/12/18 22:04 23:15 01:18 WBC RBC Hgb Hct MCV RDW Plt Count Lymph % (Auto) [place] % (Auto) [place] # Seg Neutrophils % Seg Neuts % (Manual) Lymphocytes % (Manual) Monocytes % (Manual) Seg Neutrophils # Seg Neutrophils # Man Lymphocytes # (Manual) Monocytes # (Manual) APTT POC ABG pH POC ABG pCO2 POC ABG pO2 Sodium Potassium Chloride Carbon Dioxide BUN Creatinine Glucose POC Glucose 147 H 143 H 158 H Lactic Acid Calcium Phosphorus Total Bilirubin AST ALT Total Creatine Kinase CK-MB (CK-2) Troponin T Total Protein Albumin HDL Cholesterol Salicylates Acetaminophen Crossmatch 10/12/18 10/12/18 10/12/18 02:13 03:18 04:04 WBC RBC Hgb Hct MCV RDW Plt Count Lymph % (Auto) [place] % (Auto) [place] # Seg Neutrophils % Seg Neuts % (Manual) Lymphocytes % (Manual) Monocytes % (Manual) Seg Neutrophils # Seg Neutrophils # Man Lymphocytes # (Manual) Monocytes # (Manual) APTT POC ABG pH POC ABG pCO2 POC ABG pO2 Sodium 147 H Potassium Chloride 111.1 H Carbon Dioxide BUN 30 H Creatinine 2.0 H Glucose 154 H POC Glucose 148 H 142 H Lactic Acid Calcium 8.1 L Phosphorus Total Bilirubin AST 269 H ALT 204 H Total Creatine Kinase 3647 H CK-MB (CK-2) 48.3 H Troponin T 2.230 H* D Total Protein 5.8 L Albumin 2.6 L HDL Cholesterol Salicylates Acetaminophen Crossmatch 10/12/18 10/12/18 10/12/18 04:04 04:08 04:19 WBC 24.4 H RBC Hgb Hct MCV RDW Plt Count Lymph % (Auto) [place] % (Auto) [place] # Seg Neutrophils % Seg Neuts % (Manual) 32.0 L Lymphocytes % (Manual) Monocytes % (Manual) 8.0 H Seg Neutrophils # Seg Neutrophils # Man 7.8 H Lymphocytes # (Manual) Monocytes # (Manual) 2.0 H APTT POC ABG pH 7.317 L POC ABG pCO2 49.3 H POC ABG pO2 Sodium Potassium Chloride Carbon Dioxide BUN Creatinine Glucose POC Glucose 143 H Lactic Acid Calcium Phosphorus Total Bilirubin AST ALT Total Creatine Kinase CK-MB (CK-2) Troponin T Total Protein Albumin HDL Cholesterol Salicylates Acetaminophen Crossmatch 10/12/18 10/12/18 10/12/18 05:29 06:52 08:09 WBC RBC Hgb Hct MCV RDW Plt Count Lymph % (Auto) [place] % (Auto) [place] # Seg Neutrophils % Seg Neuts % (Manual) Lymphocytes % (Manual) Monocytes % (Manual) Seg Neutrophils # Seg Neutrophils # Man Lymphocytes # (Manual) Monocytes # (Manual) APTT POC ABG pH 7.322 L POC ABG pCO2 46.5 H POC ABG pO2 Sodium Potassium Chloride Carbon Dioxide BUN Creatinine Glucose POC Glucose 196 H 226 H Lactic Acid Calcium Phosphorus Total Bilirubin AST ALT Total Creatine Kinase CK-MB (CK-2) Troponin T Total Protein Albumin HDL Cholesterol Salicylates Acetaminophen Crossmatch 10/12/18 10/12/18 10/12/18 08:38 10:03 15:50 WBC RBC Hgb Hct MCV RDW Plt Count Lymph % (Auto) [place] % (Auto) [place] # Seg Neutrophils % Seg Neuts % (Manual) Lymphocytes % (Manual) Monocytes % (Manual) Seg Neutrophils # Seg Neutrophils # Man Lymphocytes # (Manual) Monocytes # (Manual) APTT POC ABG pH POC ABG pCO2 POC ABG pO2 Sodium Potassium Chloride Carbon Dioxide BUN Creatinine Glucose POC Glucose 138 H 148 H 221 H Lactic Acid Calcium Phosphorus Total Bilirubin AST ALT Total Creatine Kinase CK-MB (CK-2) Troponin T Total Protein Albumin HDL Cholesterol Salicylates Acetaminophen Crossmatch 10/12/18 10/12/18 10/12/18 18:39 20:56 21:34 WBC RBC Hgb Hct MCV RDW Plt Count Lymph % (Auto) [place] % (Auto) [place] # Seg Neutrophils % Seg Neuts % (Manual) Lymphocytes % (Manual) Monocytes % (Manual) Seg Neutrophils # Seg Neutrophils # Man Lymphocytes # (Manual) Monocytes # (Manual) APTT POC ABG pH 7.336 L POC ABG pCO2 46.0 H POC ABG pO2 Sodium Potassium Chloride Carbon Dioxide BUN Creatinine Glucose POC Glucose 255 H 260 H Lactic Acid Calcium Phosphorus Total Bilirubin AST ALT Total Creatine Kinase CK-MB (CK-2) Troponin T Total Protein Albumin HDL Cholesterol Salicylates Acetaminophen Crossmatch 10/13/18 10/13/18 10/13/18 02:29 05:09 05:40 WBC 17.0 H RBC Hgb Hct MCV RDW Plt Count Lymph % (Auto) [place] % (Auto) 9.2 H [place] # 1.6 H Seg Neutrophils % 76.2 H Seg Neuts % (Manual) Lymphocytes % (Manual) Monocytes % (Manual) Seg Neutrophils # 12.9 H Seg Neutrophils # Man Lymphocytes # (Manual) Monocytes # (Manual) APTT POC ABG pH POC ABG pCO2 POC ABG pO2 Sodium Potassium Chloride Carbon Dioxide BUN Creatinine Glucose POC Glucose 216 H 249 H Lactic Acid Calcium Phosphorus Total Bilirubin AST ALT Total Creatine Kinase CK-MB (CK-2) Troponin T Total Protein Albumin HDL Cholesterol Salicylates Acetaminophen Crossmatch 10/13/18 10/13/18 10/13/18 05:40 05:40 09:46 WBC RBC Hgb Hct MCV RDW Plt Count Lymph % (Auto) [place] % (Auto) [place] # Seg Neutrophils % Seg Neuts % (Manual) Lymphocytes % (Manual) Monocytes % (Manual) Seg Neutrophils # Seg Neutrophils # Man Lymphocytes # (Manual) Monocytes # (Manual) APTT POC ABG pH POC ABG pCO2 POC ABG pO2 Sodium 146 H Potassium Chloride 109.8 H Carbon Dioxide BUN 35 H Creatinine Glucose 245 H POC Glucose 235 H Lactic Acid Calcium 7.9 L Phosphorus Total Bilirubin AST ALT Total Creatine Kinase CK-MB (CK-2) Troponin T 0.952 H* D Total Protein Albumin HDL Cholesterol Salicylates Acetaminophen Crossmatch 10/13/18 10/13/18 10/13/18 13:58 16:15 17:30 WBC RBC Hgb Hct MCV RDW Plt Count Lymph % (Auto) [place] % (Auto) [place] # Seg Neutrophils % Seg Neuts % (Manual) Lymphocytes % (Manual) Monocytes % (Manual) Seg Neutrophils # Seg Neutrophils # Man Lymphocytes # (Manual) Monocytes # (Manual) APTT POC ABG pH POC ABG pCO2 51.2 H POC ABG pO2 Sodium Potassium Chloride Carbon Dioxide BUN Creatinine Glucose POC Glucose 139 H Lactic Acid Calcium Phosphorus Total Bilirubin AST ALT Total Creatine Kinase CK-MB (CK-2) Troponin T 0.816 H* Total Protein Albumin HDL Cholesterol Salicylates Acetaminophen Crossmatch 10/13/18 10/14/18 10/14/18 21:25 01:49 04:52 WBC RBC Hgb Hct MCV RDW Plt Count Lymph % (Auto) [place] % (Auto) [place] # Seg Neutrophils % Seg Neuts % (Manual) Lymphocytes % (Manual) Monocytes % (Manual) Seg Neutrophils # Seg Neutrophils # Man Lymphocytes # (Manual) Monocytes # (Manual) APTT POC ABG pH POC ABG pCO2 56.0 H POC ABG pO2 Sodium Potassium Chloride Carbon Dioxide BUN Creatinine Glucose POC Glucose 205 H 166 H Lactic Acid Calcium Phosphorus Total Bilirubin AST ALT Total Creatine Kinase CK-MB (CK-2) Troponin T Total Protein Albumin HDL Cholesterol Salicylates Acetaminophen Crossmatch 10/14/18 10/14/18 10/14/18 05:32 09:45 09:45 WBC RBC Hgb 11.4 L Hct 34.5 L MCV RDW Plt Count 139 L Lymph % (Auto) [place] % (Auto) [place] # Seg Neutrophils % Seg Neuts % (Manual) Lymphocytes % (Manual) Monocytes % (Manual) Seg Neutrophils # Seg Neutrophils # Man Lymphocytes # (Manual) Monocytes # (Manual) APTT POC ABG pH POC ABG pCO2 POC ABG pO2 Sodium 148 H Potassium Chloride 107.3 H Carbon Dioxide 34 H D BUN Creatinine 0.7 L D Glucose 191 H POC Glucose 164 H Lactic Acid Calcium 7.3 L Phosphorus Total Bilirubin AST 110 H ALT 91 H Total Creatine Kinase CK-MB (CK-2) Troponin T Total Protein 4.9 L Albumin 2.0 L HDL Cholesterol Salicylates Acetaminophen Crossmatch 10/14/18 10/14/18 10/14/18 10:54 12:20 18:30 WBC RBC Hgb Hct MCV RDW Plt Count Lymph % (Auto) [place] % (Auto) [place] # Seg Neutrophils % Seg Neuts % (Manual) Lymphocytes % (Manual) Monocytes % (Manual) Seg Neutrophils # Seg Neutrophils # Man Lymphocytes # (Manual) Monocytes # (Manual) APTT POC ABG pH POC ABG pCO2 POC ABG pO2 Sodium Potassium Chloride Carbon Dioxide BUN Creatinine Glucose POC Glucose 173 H 158 H 108 H Lactic Acid Calcium Phosphorus Total Bilirubin AST ALT Total Creatine Kinase CK-MB (CK-2) Troponin T Total Protein Albumin HDL Cholesterol Salicylates Acetaminophen Crossmatch 10/14/18 10/15/18 10/15/18 21:54 02:12 04:19 WBC RBC Hgb Hct MCV RDW Plt Count Lymph % (Auto) [place] % (Auto) [place] # Seg Neutrophils % Seg Neuts % (Manual) Lymphocytes % (Manual) Monocytes % (Manual) Seg Neutrophils # Seg Neutrophils # Man Lymphocytes # (Manual) Monocytes # (Manual) APTT POC ABG pH 7.491 H POC ABG pCO2 45.1 H POC ABG pO2 Sodium Potassium Chloride Carbon Dioxide BUN Creatinine Glucose POC Glucose 110 H 164 H Lactic Acid Calcium Phosphorus Total Bilirubin AST ALT Total Creatine Kinase CK-MB (CK-2) Troponin T Total Protein Albumin HDL Cholesterol Salicylates Acetaminophen Crossmatch 10/15/18 10/15/18 10/15/18 04:55 05:43 06:20 WBC RBC Hgb 11.7 L Hct 34.7 L MCV RDW Plt Count Lymph % (Auto) [place] % (Auto) [place] # Seg Neutrophils % Seg Neuts % (Manual) Lymphocytes % (Manual) Monocytes % (Manual) Seg Neutrophils # Seg Neutrophils # Man Lymphocytes # (Manual) Monocytes # (Manual) APTT POC ABG pH POC ABG pCO2 47.3 H POC ABG pO2 78 L Sodium Potassium Chloride Carbon Dioxide BUN Creatinine Glucose POC Glucose 250 H Lactic Acid Calcium Phosphorus Total Bilirubin AST ALT Total Creatine Kinase CK-MB (CK-2) Troponin T Total Protein Albumin HDL Cholesterol Salicylates Acetaminophen Crossmatch 10/15/18 10/15/18 10/15/18 12:00 12:00 12:11 WBC RBC Hgb 11.5 L Hct 34.0 L MCV RDW Plt Count Lymph % (Auto) [place] % (Auto) [place] # Seg Neutrophils % Seg Neuts % (Manual) Lymphocytes % (Manual) Monocytes % (Manual) Seg Neutrophils # Seg Neutrophils # Man Lymphocytes # (Manual) Monocytes # (Manual) APTT POC ABG pH POC ABG pCO2 POC ABG pO2 Sodium 147 H Potassium Chloride 108.5 H Carbon Dioxide BUN Creatinine 0.7 L Glucose 209 H POC Glucose 197 H Lactic Acid Calcium 7.3 L Phosphorus Total Bilirubin AST ALT Total Creatine Kinase CK-MB (CK-2) Troponin T Total Protein Albumin HDL Cholesterol Salicylates Acetaminophen Crossmatch 10/15/18 10/15/18 10/15/18 15:48 18:34 21:29 WBC RBC Hgb Hct MCV RDW Plt Count Lymph % (Auto) [place] % (Auto) [place] # Seg Neutrophils % Seg Neuts % (Manual) Lymphocytes % (Manual) Monocytes % (Manual) Seg Neutrophils # Seg Neutrophils # Man Lymphocytes # (Manual) Monocytes # (Manual) APTT POC ABG pH POC ABG pCO2 POC ABG pO2 Sodium Potassium Chloride Carbon Dioxide BUN Creatinine Glucose POC Glucose 220 H 249 H 209 H Lactic Acid Calcium Phosphorus Total Bilirubin AST ALT Total Creatine Kinase CK-MB (CK-2) Troponin T Total Protein Albumin HDL Cholesterol Salicylates Acetaminophen Crossmatch 10/16/18 10/16/18 10/16/18 02:16 03:50 05:57 WBC RBC Hgb Hct MCV RDW Plt Count Lymph % (Auto) [place] % (Auto) [place] # Seg Neutrophils % Seg Neuts % (Manual) Lymphocytes % (Manual) Monocytes % (Manual) Seg Neutrophils # Seg Neutrophils # Man Lymphocytes # (Manual) Monocytes # (Manual) APTT POC ABG pH POC ABG pCO2 55.8 H POC ABG pO2 Sodium Potassium Chloride Carbon Dioxide BUN Creatinine Glucose POC Glucose 110 H 209 H Lactic Acid Calcium Phosphorus Total Bilirubin AST ALT Total Creatine Kinase CK-MB (CK-2) Troponin T Total Protein Albumin HDL Cholesterol Salicylates Acetaminophen Crossmatch 10/16/18 10/16/18 10/16/18 10:51 12:51 15:01 WBC RBC Hgb Hct MCV RDW Plt Count Lymph % (Auto) [place] % (Auto) [place] # Seg Neutrophils % Seg Neuts % (Manual) Lymphocytes % (Manual) Monocytes % (Manual) Seg Neutrophils # Seg Neutrophils # Man Lymphocytes # (Manual) Monocytes # (Manual) APTT POC ABG pH POC ABG pCO2 48.9 H POC ABG pO2 Sodium Potassium Chloride Carbon Dioxide BUN Creatinine Glucose POC Glucose 198 H 196 H Lactic Acid Calcium Phosphorus Total Bilirubin AST ALT Total Creatine Kinase CK-MB (CK-2) Troponin T Total Protein Albumin HDL Cholesterol Salicylates Acetaminophen Crossmatch 10/16/18 10/16/18 10/17/18 17:34 21:59 02:17 WBC RBC Hgb Hct MCV RDW Plt Count Lymph % (Auto) [place] % (Auto) [place] # Seg Neutrophils % Seg Neuts % (Manual) Lymphocytes % (Manual) Monocytes % (Manual) Seg Neutrophils # Seg Neutrophils # Man Lymphocytes # (Manual) Monocytes # (Manual) APTT POC ABG pH POC ABG pCO2 POC ABG pO2 Sodium Potassium Chloride Carbon Dioxide BUN Creatinine Glucose POC Glucose 179 H 139 H 135 H Lactic Acid Calcium Phosphorus Total Bilirubin AST ALT Total Creatine Kinase CK-MB (CK-2) Troponin T Total Protein Albumin HDL Cholesterol Salicylates Acetaminophen Crossmatch 10/17/18 10/17/18 10/17/18 05:40 05:47 10:18 WBC RBC Hgb 11.3 L Hct 33.2 L MCV RDW Plt Count Lymph % (Auto) [place] % (Auto) [place] # Seg Neutrophils % Seg Neuts % (Manual) Lymphocytes % (Manual) Monocytes % (Manual) Seg Neutrophils # Seg Neutrophils # Man Lymphocytes # (Manual) Monocytes # (Manual) APTT POC ABG pH POC ABG pCO2 POC ABG pO2 Sodium Potassium Chloride Carbon Dioxide BUN Creatinine Glucose POC Glucose 125 H 139 H Lactic Acid Calcium Phosphorus Total Bilirubin AST ALT Total Creatine Kinase CK-MB (CK-2) Troponin T Total Protein Albumin HDL Cholesterol Salicylates Acetaminophen Crossmatch 10/17/18 10/18/18 10/18/18 23:11 08:49 11:31 WBC RBC Hgb Hct MCV RDW Plt Count Lymph % (Auto) [place] % (Auto) [place] # Seg Neutrophils % Seg Neuts % (Manual) Lymphocytes % (Manual) Monocytes % (Manual) Seg Neutrophils # Seg Neutrophils # Man Lymphocytes # (Manual) Monocytes # (Manual) APTT POC ABG pH POC ABG pCO2 POC ABG pO2 Sodium Potassium Chloride Carbon Dioxide BUN Creatinine Glucose POC Glucose 165 H 125 H 182 H Lactic Acid Calcium Phosphorus Total Bilirubin AST ALT Total Creatine Kinase CK-MB (CK-2) Troponin T Total Protein Albumin HDL Cholesterol Salicylates Acetaminophen Crossmatch 10/18/18 10/18/18 10/19/18 16:12 21:02 00:28 WBC RBC Hgb 11.4 L Hct 33.6 L MCV RDW Plt Count Lymph % (Auto) [place] % (Auto) 14.0 H [place] # 1.2 H Seg Neutrophils % Seg Neuts % (Manual) Lymphocytes % (Manual) Monocytes % (Manual) Seg Neutrophils # Seg Neutrophils # Man Lymphocytes # (Manual) Monocytes # (Manual) APTT POC ABG pH POC ABG pCO2 POC ABG pO2 Sodium Potassium Chloride Carbon Dioxide BUN Creatinine Glucose POC Glucose 168 H 324 H Lactic Acid Calcium Phosphorus Total Bilirubin AST ALT Total Creatine Kinase CK-MB (CK-2) Troponin T Total Protein Albumin HDL Cholesterol Salicylates Acetaminophen Crossmatch 10/19/18 10/19/18 10/19/18 04:57 04:57 07:32 WBC RBC Hgb 11.7 L Hct 34.0 L MCV RDW Plt Count Lymph % (Auto) [place] % (Auto) [place] # Seg Neutrophils % Seg Neuts % (Manual) Lymphocytes % (Manual) Monocytes % (Manual) Seg Neutrophils # Seg Neutrophils # Man Lymphocytes # (Manual) Monocytes # (Manual) APTT POC ABG pH POC ABG pCO2 POC ABG pO2 Sodium Potassium 3.5 L Chloride 108.6 H Carbon Dioxide BUN Creatinine 0.6 L Glucose POC Glucose 159 H Lactic Acid Calcium 7.9 L Phosphorus Total Bilirubin AST ALT Total Creatine Kinase CK-MB (CK-2) Troponin T Total Protein Albumin HDL Cholesterol Salicylates Acetaminophen Crossmatch 10/19/18 10/19/18 10/20/18 16:25 20:59 12:04 WBC RBC Hgb Hct MCV RDW Plt Count Lymph % (Auto) [place] % (Auto) [place] # Seg Neutrophils % Seg Neuts % (Manual) Lymphocytes % (Manual) Monocytes % (Manual) Seg Neutrophils # Seg Neutrophils # Man Lymphocytes # (Manual) Monocytes # (Manual) APTT POC ABG pH POC ABG pCO2 POC ABG pO2 Sodium Potassium Chloride Carbon Dioxide BUN Creatinine Glucose POC Glucose 134 H 110 H 338 H Lactic Acid Calcium Phosphorus Total Bilirubin AST ALT Total Creatine Kinase CK-MB (CK-2) Troponin T Total Protein Albumin HDL Cholesterol Salicylates Acetaminophen Crossmatch 10/20/18 10/20/18 10/21/18 17:55 22:07 04:59 WBC RBC Hgb 11.6 L Hct 33.9 L MCV RDW Plt Count Lymph % (Auto) [place] % (Auto) 9.7 H [place] # 0.9 H Seg Neutrophils % 70.7 H Seg Neuts % (Manual) Lymphocytes % (Manual) Monocytes % (Manual) Seg Neutrophils # Seg Neutrophils # Man Lymphocytes # (Manual) Monocytes # (Manual) APTT POC ABG pH POC ABG pCO2 POC ABG pO2 Sodium Potassium Chloride Carbon Dioxide BUN Creatinine Glucose POC Glucose 146 H 164 H Lactic Acid Calcium Phosphorus Total Bilirubin AST ALT Total Creatine Kinase CK-MB (CK-2) Troponin T Total Protein Albumin HDL Cholesterol Salicylates Acetaminophen Crossmatch 10/21/18 10/21/18 10/21/18 04:59 07:52 11:39 WBC RBC Hgb Hct MCV RDW Plt Count Lymph % (Auto) [place] % (Auto) [place] # Seg Neutrophils % Seg Neuts % (Manual) Lymphocytes % (Manual) Monocytes % (Manual) Seg Neutrophils # Seg Neutrophils # Man Lymphocytes # (Manual) Monocytes # (Manual) APTT POC ABG pH POC ABG pCO2 POC ABG pO2 Sodium Potassium 3.5 L Chloride 107.1 H Carbon Dioxide BUN Creatinine 0.5 L Glucose 158 H POC Glucose 142 H 194 H Lactic Acid Calcium 7.5 L Phosphorus Total Bilirubin AST ALT Total Creatine Kinase CK-MB (CK-2) Troponin T Total Protein 5.6 L Albumin 2.0 L HDL Cholesterol Salicylates Acetaminophen Crossmatch 10/21/18 10/21/18 10/22/18 17:05 20:37 05:38 WBC RBC 3.48 L Hgb 10.8 L Hct 31.7 L MCV RDW Plt Count 458 H Lymph % (Auto) [place] % (Auto) 10.5 H [place] # Seg Neutrophils % Seg Neuts % (Manual) Lymphocytes % (Manual) Monocytes % (Manual) Seg Neutrophils # Seg Neutrophils # Man Lymphocytes # (Manual) Monocytes # (Manual) APTT POC ABG pH POC ABG pCO2 POC ABG pO2 Sodium Potassium Chloride Carbon Dioxide BUN Creatinine Glucose POC Glucose 167 H 182 H Lactic Acid Calcium Phosphorus Total Bilirubin AST ALT Total Creatine Kinase CK-MB (CK-2) Troponin T Total Protein Albumin HDL Cholesterol Salicylates Acetaminophen Crossmatch 10/22/18 10/22/18 10/22/18 05:38 07:48 12:08 WBC RBC Hgb Hct MCV RDW Plt Count Lymph % (Auto) [place] % (Auto) [place] # Seg Neutrophils % Seg Neuts % (Manual) Lymphocytes % (Manual) Monocytes % (Manual) Seg Neutrophils # Seg Neutrophils # Man Lymphocytes # (Manual) Monocytes # (Manual) APTT POC ABG pH POC ABG pCO2 POC ABG pO2 Sodium Potassium Chloride Carbon Dioxide BUN Creatinine 0.5 L Glucose 146 H POC Glucose 130 H 167 H Lactic Acid Calcium 7.8 L Phosphorus Total Bilirubin AST 41 H ALT Total Creatine Kinase CK-MB (CK-2) Troponin T Total Protein 5.5 L Albumin 2.1 L HDL Cholesterol Salicylates Acetaminophen Crossmatch 10/22/18 10/22/18 10/23/18 16:45 21:42 04:38 WBC RBC Hgb 11.7 L Hct 34.7 L MCV RDW Plt Count 523 H Lymph % (Auto) [place] % (Auto) 8.7 H [place] # Seg Neutrophils % 71.6 H Seg Neuts % (Manual) Lymphocytes % (Manual) Monocytes % (Manual) Seg Neutrophils # Seg Neutrophils # Man Lymphocytes # (Manual) Monocytes # (Manual) APTT POC ABG pH POC ABG pCO2 POC ABG pO2 Sodium Potassium Chloride Carbon Dioxide BUN Creatinine Glucose POC Glucose 113 H 134 H Lactic Acid Calcium Phosphorus Total Bilirubin AST ALT Total Creatine Kinase CK-MB (CK-2) Troponin T Total Protein Albumin HDL Cholesterol Salicylates Acetaminophen Crossmatch 10/23/18 10/23/18 10/23/18 04:38 07:56 11:15 WBC RBC Hgb Hct MCV RDW Plt Count Lymph % (Auto) [place] % (Auto) [place] # Seg Neutrophils % Seg Neuts % (Manual) Lymphocytes % (Manual) Monocytes % (Manual) Seg Neutrophils # Seg Neutrophils # Man Lymphocytes # (Manual) Monocytes # (Manual) APTT POC ABG pH POC ABG pCO2 POC ABG pO2 Sodium Potassium Chloride Carbon Dioxide BUN 7 L Creatinine 0.5 L Glucose 150 H POC Glucose 123 H 212 H Lactic Acid Calcium 8.0 L Phosphorus Total Bilirubin AST 55 H ALT Total Creatine Kinase CK-MB (CK-2) Troponin T Total Protein 6.2 L Albumin 2.3 L HDL Cholesterol Salicylates Acetaminophen Crossmatch 10/23/18 10/23/18 10/24/18 16:06 22:01 05:56 WBC 11.8 H RBC 3.64 L Hgb 11.2 L Hct 33.4 L MCV RDW Plt Count 564 H Lymph % (Auto) 11.3 L [place] % (Auto) [place] # Seg Neutrophils % 80.2 H Seg Neuts % (Manual) Lymphocytes % (Manual) Monocytes % (Manual) Seg Neutrophils # 9.4 H Seg Neutrophils # Man Lymphocytes # (Manual) Monocytes # (Manual) APTT POC ABG pH POC ABG pCO2 POC ABG pO2 Sodium Potassium Chloride Carbon Dioxide BUN Creatinine Glucose POC Glucose 152 H 235 H Lactic Acid Calcium Phosphorus Total Bilirubin AST ALT Total Creatine Kinase CK-MB (CK-2) Troponin T Total Protein Albumin HDL Cholesterol Salicylates Acetaminophen Crossmatch 10/24/18 10/24/18 10/24/18 05:56 07:52 11:58 WBC RBC Hgb Hct MCV RDW Plt Count Lymph % (Auto) [place] % (Auto) [place] # Seg Neutrophils % Seg Neuts % (Manual) Lymphocytes % (Manual) Monocytes % (Manual) Seg Neutrophils # Seg Neutrophils # Man Lymphocytes # (Manual) Monocytes # (Manual) APTT POC ABG pH POC ABG pCO2 POC ABG pO2 Sodium Potassium Chloride Carbon Dioxide BUN Creatinine 0.5 L Glucose 175 H POC Glucose 156 H 238 H Lactic Acid Calcium 8.0 L Phosphorus Total Bilirubin AST 44 H ALT Total Creatine Kinase CK-MB (CK-2) Troponin T Total Protein 6.2 L Albumin 2.4 L HDL Cholesterol Salicylates Acetaminophen Crossmatch 10/24/18 10/24/18 10/25/18 16:20 22:13 07:53 WBC RBC Hgb Hct MCV RDW Plt Count Lymph % (Auto) [place] % (Auto) [place] # Seg Neutrophils % Seg Neuts % (Manual) Lymphocytes % (Manual) Monocytes % (Manual) Seg Neutrophils # Seg Neutrophils # Man Lymphocytes # (Manual) Monocytes # (Manual) APTT POC ABG pH POC ABG pCO2 POC ABG pO2 Sodium Potassium Chloride Carbon Dioxide BUN Creatinine Glucose POC Glucose 60 L 261 H 211 H Lactic Acid Calcium Phosphorus Total Bilirubin AST ALT Total Creatine Kinase CK-MB (CK-2) Troponin T Total Protein Albumin HDL Cholesterol Salicylates Acetaminophen Crossmatch 10/25/18 10/25/18 10/25/18 11:03 16:02 22:45 WBC RBC Hgb Hct MCV RDW Plt Count Lymph % (Auto) [place] % (Auto) [place] # Seg Neutrophils % Seg Neuts % (Manual) Lymphocytes % (Manual) Monocytes % (Manual) Seg Neutrophils # Seg Neutrophils # Man Lymphocytes # (Manual) Monocytes # (Manual) APTT POC ABG pH POC ABG pCO2 POC ABG pO2 Sodium Potassium Chloride Carbon Dioxide BUN Creatinine Glucose POC Glucose 137 H 186 H 140 H Lactic Acid Calcium Phosphorus Total Bilirubin AST ALT Total Creatine Kinase CK-MB (CK-2) Troponin T Total Protein Albumin HDL Cholesterol Salicylates Acetaminophen Crossmatch 10/26/18 10/26/18 10/26/18 08:13 10:08 11:28 WBC RBC Hgb Hct MCV RDW Plt Count Lymph % (Auto) [place] % (Auto) [place] # Seg Neutrophils % Seg Neuts % (Manual) Lymphocytes % (Manual) Monocytes % (Manual) Seg Neutrophils # Seg Neutrophils # Man Lymphocytes # (Manual) Monocytes # (Manual) APTT POC ABG pH POC ABG pCO2 POC ABG pO2 Sodium Potassium Chloride Carbon Dioxide BUN Creatinine Glucose POC Glucose 144 H 110 H 201 H Lactic Acid Calcium Phosphorus Total Bilirubin AST ALT Total Creatine Kinase CK-MB (CK-2) Troponin T Total Protein Albumin HDL Cholesterol Salicylates Acetaminophen Crossmatch 10/26/18 10/26/18 10/27/18 16:36 22:29 07:34 WBC RBC Hgb Hct MCV RDW Plt Count Lymph % (Auto) [place] % (Auto) [place] # Seg Neutrophils % Seg Neuts % (Manual) Lymphocytes % (Manual) Monocytes % (Manual) Seg Neutrophils # Seg Neutrophils # Man Lymphocytes # (Manual) Monocytes # (Manual) APTT POC ABG pH POC ABG pCO2 POC ABG pO2 Sodium Potassium Chloride Carbon Dioxide BUN Creatinine Glucose POC Glucose 147 H 302 H 182 H Lactic Acid Calcium Phosphorus Total Bilirubin AST ALT Total Creatine Kinase CK-MB (CK-2) Troponin T Total Protein Albumin HDL Cholesterol Salicylates Acetaminophen Crossmatch 10/27/18 10/27/18 10/27/18 11:57 13:33 14:55 WBC RBC Hgb Hct MCV RDW Plt Count 550 H Lymph % (Auto) [place] % (Auto) [place] # Seg Neutrophils % Seg Neuts % (Manual) Lymphocytes % (Manual) Monocytes % (Manual) Seg Neutrophils # Seg Neutrophils # Man Lymphocytes # (Manual) Monocytes # (Manual) APTT POC ABG pH POC ABG pCO2 POC ABG pO2 Sodium Potassium Chloride Carbon Dioxide BUN Creatinine Glucose POC Glucose 209 H Lactic Acid Calcium Phosphorus Total Bilirubin AST ALT Total Creatine Kinase CK-MB (CK-2) Troponin T Total Protein Albumin HDL Cholesterol Salicylates Acetaminophen Crossmatch See Detail 10/27/18 10/27/18 10/28/18 17:09 21:45 07:45 WBC RBC Hgb Hct MCV RDW Plt Count Lymph % (Auto) [place] % (Auto) [place] # Seg Neutrophils % Seg Neuts % (Manual) Lymphocytes % (Manual) Monocytes % (Manual) Seg Neutrophils # Seg Neutrophils # Man Lymphocytes # (Manual) Monocytes # (Manual) APTT POC ABG pH POC ABG pCO2 POC ABG pO2 Sodium Potassium Chloride Carbon Dioxide BUN Creatinine Glucose POC Glucose 233 H 136 H 201 H Lactic Acid Calcium Phosphorus Total Bilirubin AST ALT Total Creatine Kinase CK-MB (CK-2) Troponin T Total Protein Albumin HDL Cholesterol Salicylates Acetaminophen Crossmatch
[2018-10-28] MEDS: PEPCID PO SCH ×2 (12:26→22:27)
--- NOTE | 2018-10-28 14:14 | Progress Note ---
Assessment and Plan Patient has severe peripheral vascular disease with gangrene and severe chest pain.Scheduled for major vascular surgery for tomorrow. Reviewed previous notes. QUIQUE done 10/17/2018 showed global hypokinesis with EF 35-40%,no mild LVH,no significant valvulopathy. Did not have ischemic evaluation. However,considering his significant vascular disease and symptoms,would "clear" patient for vascular surgery with high risk.No anginal symptoms at rest and no evidence of CHF. Patient is cardiac meilssa stable,however needs close monitoring perioperatively for any evidence of ischemia/myocardial injury. 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 Objective Vital Signs Temp Pulse Pulse Resp Resp BP Pulse Ox 10/28/18 11:12 97.8 F 74 20 107/52 94 10/28/18 10:00 95 10/28/18 09:09 83 130/90 10/28/18 05:51 83 20 95 10/28/18 05:32 98.1 F 20 10/28/18 05:31 98.1 F 84 20 131/90 90 10/27/18 21:18 101 H 127/75 10/27/18 20:35 98.4 F 101 H 20 127/75 95 10/27/18 17:04 97.9 F 109 H 20 124/64 91 10/27/18 15:00 108 H 18 - Physical Examination General: No Apparent Distress Neck: Positive: neck supple Cardiac: Positive: Reg Rate and Rhythm Lungs: Positive: Decreased Breath Sounds Neuro: Positive: Grossly Intact Abdomen: Positive: Soft. Negative: Tender Skin: Negative: Rash Extremities: Present: Other (chronic skin changes noted bilaterally. Patient has mottling of the left leg just proximal to the ankle) - Labs and Meds Coagulation 10/27/18 Range/Units 13:33 PT 13.6 (12.2-14.9) Sec. INR 0.98 (0.87-1.13) APTT 30.3 (24.2-36.6) Sec. CBC 10/27/18 Range/Units 13:33 Hgb 13.0 (11.8-15.2) gm/dl Hct 35.6 (35.5-45.6) % Plt Count 550 H (140-440) K/mm3 - Imaging and Cardiology EKG: report reviewed, image reviewed Echo: report reviewed (TDS, mild LVH, severe global hypokinesis of LV, unable to estimate LVEF, trace TR. ) - EKG Sinus rhythms and dysrhythmias: sinus rhythm - Allied health notes Allied health notes reviewed: nursing
[2018-10-28] MEDS: HEPARIN/ 0.45% NACL-25,000 UNIT/500 ML 25,000 UNIT/500 ML BAG IV SCH (15:15)
--- NOTE | 2018-10-28 21:43 | Progress Note ---
Assessment and Plan Patient has necrosis feet both legs. Patient weak and sleeping on room air .O2 saturation 94%.No acute respiratory distress. - Patient Problems (1) Acute respiratory failure Current Visit: Yes Status: Acute Plan to address problem: O2 2 litres via nasal canula. Albuterol/atrovent aerosol treatments q 6 hours. Patient is on I/V heparin. Continue famotidine. (2) Acute CVA (cerebrovascular accident) Current Visit: Yes Status: Acute Plan to address problem: Management as per neurology. (3) Altered mental state Current Visit: Yes Status: Acute Qualifiers: Altered mental status type: unspecified Qualified Code(s): R41.82 - Altered mental status, unspecified Plan to address problem: Management as per primary care. (4) Atrial fibrillation Current Visit: Yes Status: Acute Plan to address problem: Management as per primary care and cardiology. Patient is on I/V heparin (5) Diabetes mellitus with hyperglycemia Current Visit: Yes Status: Acute Plan to address problem: Management as per primary care. (6) Polysubstance abuse Current Visit: Yes Status: Chronic Plan to address problem: Management as per primary care. (7) Tobacco use Current Visit: Yes Status: Chronic Plan to address problem: Counselled to stop smoking. Subjective Date of service: 10/28/18 Principal diagnosis: Ac hypercapnic hypoxemic Resp failure; Drug OD; AE-COPD; NINOSKA; Seizures Interval history: Patient has necrosis feet both legs. Patient weak and sleeping on room air .O2 saturation 94%.No acute respiratory distress. Objective Vital Signs - 12hr 10/28/18 10/28/18 10/28/18 10:00 11:12 14:37 Temperature 97.8 F Pulse Rate 74 Pulse Rate [ Anterior Bilateral Throughout] Pulse Rate [ Bilateral] Respiratory 20 Rate Respiratory Rate [Anterior Bilateral Throughout] Respiratory Rate [Bilateral ] Blood Pressure 107/52 O2 Sat by Pulse 95 94 96 Oximetry 10/28/18 10/28/18 10/28/18 18:02 20:11 20:21 Temperature 98.4 F Pulse Rate 84 Pulse Rate [ 90 Anterior Bilateral Throughout] Pulse Rate [ 94 H Bilateral] Respiratory 16 Rate Respiratory 20 Rate [Anterior Bilateral Throughout] Respiratory 20 Rate [Bilateral ] Blood Pressure 109/71 O2 Sat by Pulse 90 94 Oximetry Constitutional: no acute distress, asleep, other (middle aged but chronically ill looking CM; Atraumatic) Eyes: non-icteric ENT: oropharynx moist, other (mallampati 2) Neck: supple, no lymphadenopathy, no JVD Effort: normal Ascultation: Bilateral: diminished breath sounds, rhonchi Percussion: Bilateral: not dull Cardiovascular: irregular rhythm, other (No R/M) Gastrointestinal: normoactive bowel sounds, soft, non-tender, non-distended Integumentary: other (poor turgor) Extremities: no edema, no ischemia or petechiae, other (cool left leg campbell-down; with digital gangrene of left foot also) Neurologic: normal mental status, pupils equal and round, other (Left hemiparesis, improving) Psychiatric: mood appropriate, affect normal CBC and BMP: 10/27/18 13:33 10/24/18 05:56 ABG, PT/INR, D-dimer: ABG POC ABG pH 7.393 (7.35-7.45) 10/16/18 12:51 POC ABG pCO2 48.9 (35-45) H 10/16/18 12:51 POC ABG pO2 92 (80-105) 10/16/18 12:51 POC ABG HCO3 29.8 (22-26 mml/L) 10/16/18 12:51 POC ABG Total CO2 31 (23-27mmol/L) 10/16/18 12:51 POC ABG O2 Sat 97 10/16/18 12:51 PT/INR, D-dimer PT 13.6 Sec. (12.2-14.9) 10/27/18 13:33 INR 0.98 (0.87-1.13) 10/27/18 13:33 Abnormal lab findings: Abnormal Labs 10/11/18 10/11/18 10/11/18 00:16 00:16 00:16 WBC 20.1 H RBC Hgb Hct MCV 98 H RDW 15.4 H Plt Count Lymph % (Auto) [place] % (Auto) [place] # Seg Neutrophils % Seg Neuts % (Manual) Lymphocytes % (Manual) 5.0 L Monocytes % (Manual) 25.0 H Seg Neutrophils # Seg Neutrophils # Man 9.2 H Lymphocytes # (Manual) 1.0 L Monocytes # (Manual) 5.0 H APTT Heparin Anti-Xa Level POC ABG pH POC ABG pCO2 POC ABG pO2 Sodium Potassium 5.8 H Chloride Carbon Dioxide 17 L BUN Creatinine 2.2 H Glucose 348 H POC Glucose Lactic Acid 13.70 H* Calcium 7.7 L Phosphorus Total Bilirubin 1.50 H AST 179 H ALT 110 H Total Creatine Kinase 324 H CK-MB (CK-2) Troponin T 0.257 H* Total Protein 5.9 L Albumin 2.9 L HDL Cholesterol 19 L Salicylates Acetaminophen Crossmatch 10/11/18 10/11/18 10/11/18 00:16 00:16 01:21 WBC RBC Hgb Hct MCV RDW Plt Count Lymph % (Auto) [place] % (Auto) [place] # Seg Neutrophils % Seg Neuts % (Manual) Lymphocytes % (Manual) Monocytes % (Manual) Seg Neutrophils # Seg Neutrophils # Man Lymphocytes # (Manual) Monocytes # (Manual) APTT Heparin Anti-Xa Level POC ABG pH 7.110 L POC ABG pCO2 50.3 H POC ABG pO2 65 L Sodium Potassium Chloride Carbon Dioxide BUN Creatinine Glucose POC Glucose Lactic Acid Calcium Phosphorus Total Bilirubin AST ALT Total Creatine Kinase CK-MB (CK-2) Troponin T Total Protein Albumin HDL Cholesterol Salicylates < 0.3 L Acetaminophen < 5.0 L Crossmatch 10/11/18 10/11/18 10/11/18 01:22 03:27 04:14 WBC RBC Hgb Hct MCV RDW Plt Count Lymph % (Auto) [place] % (Auto) [place] # Seg Neutrophils % Seg Neuts % (Manual) Lymphocytes % (Manual) Monocytes % (Manual) Seg Neutrophils # Seg Neutrophils # Man Lymphocytes # (Manual) Monocytes # (Manual) APTT Heparin Anti-Xa Level POC ABG pH POC ABG pCO2 POC ABG pO2 Sodium Potassium Chloride Carbon Dioxide BUN Creatinine Glucose POC Glucose Lactic Acid 8.50 H* 4.10 H* Calcium Phosphorus 4.90 H Total Bilirubin AST ALT Total Creatine Kinase CK-MB (CK-2) Troponin T Total Protein Albumin HDL Cholesterol Salicylates Acetaminophen Crossmatch 10/11/18 10/11/18 10/11/18 04:14 04:14 04:14 WBC RBC Hgb Hct MCV RDW Plt Count Lymph % (Auto) [place] % (Auto) [place] # Seg Neutrophils % Seg Neuts % (Manual) Lymphocytes % (Manual) Monocytes % (Manual) Seg Neutrophils # Seg Neutrophils # Man Lymphocytes # (Manual) Monocytes # (Manual) APTT Heparin Anti-Xa Level POC ABG pH POC ABG pCO2 POC ABG pO2 Sodium Potassium 5.6 H Chloride Carbon Dioxide 19 L BUN Creatinine 1.6 H Glucose 329 H POC Glucose 328 H Lactic Acid Calcium 7.3 L Phosphorus Total Bilirubin AST ALT Total Creatine Kinase CK-MB (CK-2) Troponin T 1.130 H* D Total Protein Albumin HDL Cholesterol Salicylates Acetaminophen Crossmatch 10/11/18 10/11/18 10/11/18 05:10 05:32 05:58 WBC RBC Hgb Hct MCV RDW Plt Count Lymph % (Auto) [place] % (Auto) [place] # Seg Neutrophils % Seg Neuts % (Manual) Lymphocytes % (Manual) Monocytes % (Manual) Seg Neutrophils # Seg Neutrophils # Man Lymphocytes # (Manual) Monocytes # (Manual) APTT Heparin Anti-Xa Level POC ABG pH 7.259 L POC ABG pCO2 45.6 H POC ABG pO2 Sodium Potassium Chloride 108.6 H Carbon Dioxide 20 L BUN Creatinine 1.8 H Glucose 269 H POC Glucose 273 H Lactic Acid Calcium 7.0 L Phosphorus Total Bilirubin AST ALT Total Creatine Kinase CK-MB (CK-2) Troponin T Total Protein Albumin HDL Cholesterol Salicylates Acetaminophen Crossmatch 10/11/18 10/11/18 10/11/18 05:58 06:39 07:00 WBC RBC Hgb Hct MCV RDW Plt Count Lymph % (Auto) [place] % (Auto) [place] # Seg Neutrophils % Seg Neuts % (Manual) Lymphocytes % (Manual) Monocytes % (Manual) Seg Neutrophils # Seg Neutrophils # Man Lymphocytes # (Manual) Monocytes # (Manual) APTT Heparin Anti-Xa Level POC ABG pH POC ABG pCO2 POC ABG pO2 Sodium Potassium Chloride Carbon Dioxide BUN Creatinine Glucose POC Glucose 247 H Lactic Acid 3.20 H* 3.30 H* Calcium Phosphorus Total Bilirubin AST ALT Total Creatine Kinase CK-MB (CK-2) Troponin T Total Protein Albumin HDL Cholesterol Salicylates Acetaminophen Crossmatch 10/11/18 10/11/18 10/11/18 07:00 07:30 07:36 WBC RBC Hgb Hct MCV RDW Plt Count Lymph % (Auto) [place] % (Auto) [place] # Seg Neutrophils % Seg Neuts % (Manual) Lymphocytes % (Manual) Monocytes % (Manual) Seg Neutrophils # Seg Neutrophils # Man Lymphocytes # (Manual) Monocytes # (Manual) APTT Heparin Anti-Xa Level POC ABG pH POC ABG pCO2 POC ABG pO2 Sodium 146 H Potassium Chloride 112.1 H Carbon Dioxide 21 L BUN Creatinine 1.6 H Glucose 218 H POC Glucose Lactic Acid 3.20 H* Calcium 7.0 L Phosphorus Total Bilirubin AST ALT Total Creatine Kinase CK-MB (CK-2) Troponin T 1.020 H* Total Protein Albumin HDL Cholesterol Salicylates Acetaminophen Crossmatch 10/11/18 10/11/18 10/11/18 07:43 08:29 08:29 WBC RBC Hgb 16.2 H Hct 49.9 H D MCV RDW Plt Count Lymph % (Auto) [place] % (Auto) [place] # Seg Neutrophils % Seg Neuts % (Manual) Lymphocytes % (Manual) Monocytes % (Manual) Seg Neutrophils # Seg Neutrophils # Man Lymphocytes # (Manual) Monocytes # (Manual) APTT Heparin Anti-Xa Level POC ABG pH POC ABG pCO2 POC ABG pO2 Sodium Potassium Chloride Carbon Dioxide BUN Creatinine Glucose POC Glucose 174 H Lactic Acid 3.90 H* Calcium Phosphorus Total Bilirubin AST ALT Total Creatine Kinase CK-MB (CK-2) Troponin T Total Protein Albumin HDL Cholesterol Salicylates Acetaminophen Crossmatch 10/11/18 10/11/18 10/11/18 08:29 08:42 11:05 WBC RBC Hgb Hct MCV RDW Plt Count Lymph % (Auto) [place] % (Auto) [place] # Seg Neutrophils % Seg Neuts % (Manual) Lymphocytes % (Manual) Monocytes % (Manual) Seg Neutrophils # Seg Neutrophils # Man Lymphocytes # (Manual) Monocytes # (Manual) APTT 24.1 L Heparin Anti-Xa Level POC ABG pH POC ABG pCO2 POC ABG pO2 Sodium 147 H Potassium Chloride 113.3 H Carbon Dioxide 21 L BUN Creatinine 1.7 H Glucose 119 H POC Glucose 164 H Lactic Acid Calcium 7.7 L Phosphorus Total Bilirubin AST ALT Total Creatine Kinase CK-MB (CK-2) Troponin T Total Protein Albumin HDL Cholesterol Salicylates Acetaminophen Crossmatch 10/11/18 10/11/18 10/11/18 11:05 11:06 12:30 WBC RBC Hgb Hct MCV RDW Plt Count Lymph % (Auto) [place] % (Auto) [place] # Seg Neutrophils % Seg Neuts % (Manual) Lymphocytes % (Manual) Monocytes % (Manual) Seg Neutrophils # Seg Neutrophils # Man Lymphocytes # (Manual) Monocytes # (Manual) APTT Heparin Anti-Xa Level POC ABG pH POC ABG pCO2 POC ABG pO2 Sodium 148 H Potassium Chloride 113.4 H Carbon Dioxide 21 L BUN Creatinine 1.6 H Glucose 119 H POC Glucose 116 H Lactic Acid 3.20 H* Calcium 7.5 L Phosphorus Total Bilirubin AST ALT Total Creatine Kinase CK-MB (CK-2) Troponin T Total Protein Albumin HDL Cholesterol Salicylates Acetaminophen Crossmatch 10/11/18 10/11/18 10/11/18 12:30 13:16 13:25 WBC RBC Hgb Hct MCV RDW Plt Count Lymph % (Auto) [place] % (Auto) [place] # Seg Neutrophils % Seg Neuts % (Manual) Lymphocytes % (Manual) Monocytes % (Manual) Seg Neutrophils # Seg Neutrophils # Man Lymphocytes # (Manual) Monocytes # (Manual) APTT Heparin Anti-Xa Level POC ABG pH 7.247 L POC ABG pCO2 48.4 H POC ABG pO2 Sodium Potassium Chloride Carbon Dioxide BUN Creatinine Glucose POC Glucose 112 H Lactic Acid 2.70 H* Calcium Phosphorus Total Bilirubin AST ALT Total Creatine Kinase CK-MB (CK-2) Troponin T Total Protein Albumin HDL Cholesterol Salicylates Acetaminophen Crossmatch 10/11/18 10/11/18 10/11/18 14:41 15:27 16:13 WBC RBC Hgb Hct MCV RDW Plt Count Lymph % (Auto) [place] % (Auto) [place] # Seg Neutrophils % Seg Neuts % (Manual) Lymphocytes % (Manual) Monocytes % (Manual) Seg Neutrophils # Seg Neutrophils # Man Lymphocytes # (Manual) Monocytes # (Manual) APTT Heparin Anti-Xa Level POC ABG pH POC ABG pCO2 POC ABG pO2 Sodium Potassium Chloride Carbon Dioxide BUN Creatinine Glucose POC Glucose 127 H 141 H 134 H Lactic Acid Calcium Phosphorus Total Bilirubin AST ALT Total Creatine Kinase CK-MB (CK-2) Troponin T Total Protein Albumin HDL Cholesterol Salicylates Acetaminophen Crossmatch 10/11/18 10/11/18 10/11/18 17:18 18:23 19:38 WBC RBC Hgb Hct MCV RDW Plt Count Lymph % (Auto) [place] % (Auto) [place] # Seg Neutrophils % Seg Neuts % (Manual) Lymphocytes % (Manual) Monocytes % (Manual) Seg Neutrophils # Seg Neutrophils # Man Lymphocytes # (Manual) Monocytes # (Manual) APTT Heparin Anti-Xa Level POC ABG pH POC ABG pCO2 POC ABG pO2 Sodium 148 H Potassium Chloride 112.7 H Carbon Dioxide BUN 23 H Creatinine Glucose 143 H POC Glucose 132 H 129 H Lactic Acid Calcium 7.9 L Phosphorus Total Bilirubin AST ALT Total Creatine Kinase CK-MB (CK-2) Troponin T Total Protein Albumin HDL Cholesterol Salicylates Acetaminophen Crossmatch 10/11/18 10/11/18 10/11/18 20:19 20:36 21:01 WBC RBC Hgb Hct MCV RDW Plt Count Lymph % (Auto) [place] % (Auto) [place] # Seg Neutrophils % Seg Neuts % (Manual) Lymphocytes % (Manual) Monocytes % (Manual) Seg Neutrophils # Seg Neutrophils # Man Lymphocytes # (Manual) Monocytes # (Manual) APTT Heparin Anti-Xa Level POC ABG pH 7.281 L POC ABG pCO2 POC ABG pO2 Sodium Potassium Chloride Carbon Dioxide BUN Creatinine Glucose POC Glucose 129 H 151 H Lactic Acid Calcium Phosphorus Total Bilirubin AST ALT Total Creatine Kinase CK-MB (CK-2) Troponin T Total Protein Albumin HDL Cholesterol Salicylates Acetaminophen Crossmatch 10/11/18 10/11/18 10/12/18 22:04 23:15 01:18 WBC RBC Hgb Hct MCV RDW Plt Count Lymph % (Auto) [place] % (Auto) [place] # Seg Neutrophils % Seg Neuts % (Manual) Lymphocytes % (Manual) Monocytes % (Manual) Seg Neutrophils # Seg Neutrophils # Man Lymphocytes # (Manual) Monocytes # (Manual) APTT Heparin Anti-Xa Level POC ABG pH POC ABG pCO2 POC ABG pO2 Sodium Potassium Chloride Carbon Dioxide BUN Creatinine Glucose POC Glucose 147 H 143 H 158 H Lactic Acid Calcium Phosphorus Total Bilirubin AST ALT Total Creatine Kinase CK-MB (CK-2) Troponin T Total Protein Albumin HDL Cholesterol Salicylates Acetaminophen Crossmatch 10/12/18 10/12/18 10/12/18 02:13 03:18 04:04 WBC RBC Hgb Hct MCV RDW Plt Count Lymph % (Auto) [place] % (Auto) [place] # Seg Neutrophils % Seg Neuts % (Manual) Lymphocytes % (Manual) Monocytes % (Manual) Seg Neutrophils # Seg Neutrophils # Man Lymphocytes # (Manual) Monocytes # (Manual) APTT Heparin Anti-Xa Level POC ABG pH POC ABG pCO2 POC ABG pO2 Sodium 147 H Potassium Chloride 111.1 H Carbon Dioxide BUN 30 H Creatinine 2.0 H Glucose 154 H POC Glucose 148 H 142 H Lactic Acid Calcium 8.1 L Phosphorus Total Bilirubin AST 269 H ALT 204 H Total Creatine Kinase 3647 H CK-MB (CK-2) 48.3 H Troponin T 2.230 H* D Total Protein 5.8 L Albumin 2.6 L HDL Cholesterol Salicylates Acetaminophen Crossmatch 10/12/18 10/12/18 10/12/18 04:04 04:08 04:19 WBC 24.4 H RBC Hgb Hct MCV RDW Plt Count Lymph % (Auto) [place] % (Auto) [place] # Seg Neutrophils % Seg Neuts % (Manual) 32.0 L Lymphocytes % (Manual) Monocytes % (Manual) 8.0 H Seg Neutrophils # Seg Neutrophils # Man 7.8 H Lymphocytes # (Manual) Monocytes # (Manual) 2.0 H APTT Heparin Anti-Xa Level POC ABG pH 7.317 L POC ABG pCO2 49.3 H POC ABG pO2 Sodium Potassium Chloride Carbon Dioxide BUN Creatinine Glucose POC Glucose 143 H Lactic Acid Calcium Phosphorus Total Bilirubin AST ALT Total Creatine Kinase CK-MB (CK-2) Troponin T Total Protein Albumin HDL Cholesterol Salicylates Acetaminophen Crossmatch 10/12/18 10/12/18 10/12/18 05:29 06:52 08:09 WBC RBC Hgb Hct MCV RDW Plt Count Lymph % (Auto) [place] % (Auto) [place] # Seg Neutrophils % Seg Neuts % (Manual) Lymphocytes % (Manual) Monocytes % (Manual) Seg Neutrophils # Seg Neutrophils # Man Lymphocytes # (Manual) Monocytes # (Manual) APTT Heparin Anti-Xa Level POC ABG pH 7.322 L POC ABG pCO2 46.5 H POC ABG pO2 Sodium Potassium Chloride Carbon Dioxide BUN Creatinine Glucose POC Glucose 196 H 226 H Lactic Acid Calcium Phosphorus Total Bilirubin AST ALT Total Creatine Kinase CK-MB (CK-2) Troponin T Total Protein Albumin HDL Cholesterol Salicylates Acetaminophen Crossmatch 10/12/18 10/12/18 10/12/18 08:38 10:03 15:50 WBC RBC Hgb Hct MCV RDW Plt Count Lymph % (Auto) [place] % (Auto) [place] # Seg Neutrophils % Seg Neuts % (Manual) Lymphocytes % (Manual) Monocytes % (Manual) Seg Neutrophils # Seg Neutrophils # Man Lymphocytes # (Manual) Monocytes # (Manual) APTT Heparin Anti-Xa Level POC ABG pH POC ABG pCO2 POC ABG pO2 Sodium Potassium Chloride Carbon Dioxide BUN Creatinine Glucose POC Glucose 138 H 148 H 221 H Lactic Acid Calcium Phosphorus Total Bilirubin AST ALT Total Creatine Kinase CK-MB (CK-2) Troponin T Total Protein Albumin HDL Cholesterol Salicylates Acetaminophen Crossmatch 10/12/18 10/12/18 10/12/18 18:39 20:56 21:34 WBC RBC Hgb Hct MCV RDW Plt Count Lymph % (Auto) [place] % (Auto) [place] # Seg Neutrophils % Seg Neuts % (Manual) Lymphocytes % (Manual) Monocytes % (Manual) Seg Neutrophils # Seg Neutrophils # Man Lymphocytes # (Manual) Monocytes # (Manual) APTT Heparin Anti-Xa Level POC ABG pH 7.336 L POC ABG pCO2 46.0 H POC ABG pO2 Sodium Potassium Chloride Carbon Dioxide BUN Creatinine Glucose POC Glucose 255 H 260 H Lactic Acid Calcium Phosphorus Total Bilirubin AST ALT Total Creatine Kinase CK-MB (CK-2) Troponin T Total Protein Albumin HDL Cholesterol Salicylates Acetaminophen Crossmatch 10/13/18 10/13/18 10/13/18 02:29 05:09 05:40 WBC 17.0 H RBC Hgb Hct MCV RDW Plt Count Lymph % (Auto) [place] % (Auto) 9.2 H [place] # 1.6 H Seg Neutrophils % 76.2 H Seg Neuts % (Manual) Lymphocytes % (Manual) Monocytes % (Manual) Seg Neutrophils # 12.9 H Seg Neutrophils # Man Lymphocytes # (Manual) Monocytes # (Manual) APTT Heparin Anti-Xa Level POC ABG pH POC ABG pCO2 POC ABG pO2 Sodium Potassium Chloride Carbon Dioxide BUN Creatinine Glucose POC Glucose 216 H 249 H Lactic Acid Calcium Phosphorus Total Bilirubin AST ALT Total Creatine Kinase CK-MB (CK-2) Troponin T Total Protein Albumin HDL Cholesterol Salicylates Acetaminophen Crossmatch 10/13/18 10/13/18 10/13/18 05:40 05:40 09:46 WBC RBC Hgb Hct MCV RDW Plt Count Lymph % (Auto) [place] % (Auto) [place] # Seg Neutrophils % Seg Neuts % (Manual) Lymphocytes % (Manual) Monocytes % (Manual) Seg Neutrophils # Seg Neutrophils # Man Lymphocytes # (Manual) Monocytes # (Manual) APTT Heparin Anti-Xa Level POC ABG pH POC ABG pCO2 POC ABG pO2 Sodium 146 H Potassium Chloride 109.8 H Carbon Dioxide BUN 35 H Creatinine Glucose 245 H POC Glucose 235 H Lactic Acid Calcium 7.9 L Phosphorus Total Bilirubin AST ALT Total Creatine Kinase CK-MB (CK-2) Troponin T 0.952 H* D Total Protein Albumin HDL Cholesterol Salicylates Acetaminophen Crossmatch 10/13/18 10/13/18 10/13/18 13:58 16:15 17:30 WBC RBC Hgb Hct MCV RDW Plt Count Lymph % (Auto) [place] % (Auto) [place] # Seg Neutrophils % Seg Neuts % (Manual) Lymphocytes % (Manual) Monocytes % (Manual) Seg Neutrophils # Seg Neutrophils # Man Lymphocytes # (Manual) Monocytes # (Manual) APTT Heparin Anti-Xa Level POC ABG pH POC ABG pCO2 51.2 H POC ABG pO2 Sodium Potassium Chloride Carbon Dioxide BUN Creatinine Glucose POC Glucose 139 H Lactic Acid Calcium Phosphorus Total Bilirubin AST ALT Total Creatine Kinase CK-MB (CK-2) Troponin T 0.816 H* Total Protein Albumin HDL Cholesterol Salicylates Acetaminophen Crossmatch 10/13/18 10/14/18 10/14/18 21:25 01:49 04:52 WBC RBC Hgb Hct MCV RDW Plt Count Lymph % (Auto) [place] % (Auto) [place] # Seg Neutrophils % Seg Neuts % (Manual) Lymphocytes % (Manual) Monocytes % (Manual) Seg Neutrophils # Seg Neutrophils # Man Lymphocytes # (Manual) Monocytes # (Manual) APTT Heparin Anti-Xa Level POC ABG pH POC ABG pCO2 56.0 H POC ABG pO2 Sodium Potassium Chloride Carbon Dioxide BUN Creatinine Glucose POC Glucose 205 H 166 H Lactic Acid Calcium Phosphorus Total Bilirubin AST ALT Total Creatine Kinase CK-MB (CK-2) Troponin T Total Protein Albumin HDL Cholesterol Salicylates Acetaminophen Crossmatch 10/14/18 10/14/18 10/14/18 05:32 09:45 09:45 WBC RBC Hgb 11.4 L Hct 34.5 L MCV RDW Plt Count 139 L Lymph % (Auto) [place] % (Auto) [place] # Seg Neutrophils % Seg Neuts % (Manual) Lymphocytes % (Manual) Monocytes % (Manual) Seg Neutrophils # Seg Neutrophils # Man Lymphocytes # (Manual) Monocytes # (Manual) APTT Heparin Anti-Xa Level POC ABG pH POC ABG pCO2 POC ABG pO2 Sodium 148 H Potassium Chloride 107.3 H Carbon Dioxide 34 H D BUN Creatinine 0.7 L D Glucose 191 H POC Glucose 164 H Lactic Acid Calcium 7.3 L Phosphorus Total Bilirubin AST 110 H ALT 91 H Total Creatine Kinase CK-MB (CK-2) Troponin T Total Protein 4.9 L Albumin 2.0 L HDL Cholesterol Salicylates Acetaminophen Crossmatch 10/14/18 10/14/18 10/14/18 10:54 12:20 18:30 WBC RBC Hgb Hct MCV RDW Plt Count Lymph % (Auto) [place] % (Auto) [place] # Seg Neutrophils % Seg Neuts % (Manual) Lymphocytes % (Manual) Monocytes % (Manual) Seg Neutrophils # Seg Neutrophils # Man Lymphocytes # (Manual) Monocytes # (Manual) APTT Heparin Anti-Xa Level POC ABG pH POC ABG pCO2 POC ABG pO2 Sodium Potassium Chloride Carbon Dioxide BUN Creatinine Glucose POC Glucose 173 H 158 H 108 H Lactic Acid Calcium Phosphorus Total Bilirubin AST ALT Total Creatine Kinase CK-MB (CK-2) Troponin T Total Protein Albumin HDL Cholesterol Salicylates Acetaminophen Crossmatch 10/14/18 10/15/18 10/15/18 21:54 02:12 04:19 WBC RBC Hgb Hct MCV RDW Plt Count Lymph % (Auto) [place] % (Auto) [place] # Seg Neutrophils % Seg Neuts % (Manual) Lymphocytes % (Manual) Monocytes % (Manual) Seg Neutrophils # Seg Neutrophils # Man Lymphocytes # (Manual) Monocytes # (Manual) APTT Heparin Anti-Xa Level POC ABG pH 7.491 H POC ABG pCO2 45.1 H POC ABG pO2 Sodium Potassium Chloride Carbon Dioxide BUN Creatinine Glucose POC Glucose 110 H 164 H Lactic Acid Calcium Phosphorus Total Bilirubin AST ALT Total Creatine Kinase CK-MB (CK-2) Troponin T Total Protein Albumin HDL Cholesterol Salicylates Acetaminophen Crossmatch 10/15/18 10/15/18 10/15/18 04:55 05:43 06:20 WBC RBC Hgb 11.7 L Hct 34.7 L MCV RDW Plt Count Lymph % (Auto) [place] % (Auto) [place] # Seg Neutrophils % Seg Neuts % (Manual) Lymphocytes % (Manual) Monocytes % (Manual) Seg Neutrophils # Seg Neutrophils # Man Lymphocytes # (Manual) Monocytes # (Manual) APTT Heparin Anti-Xa Level POC ABG pH POC ABG pCO2 47.3 H POC ABG pO2 78 L Sodium Potassium Chloride Carbon Dioxide BUN Creatinine Glucose POC Glucose 250 H Lactic Acid Calcium Phosphorus Total Bilirubin AST ALT Total Creatine Kinase CK-MB (CK-2) Troponin T Total Protein Albumin HDL Cholesterol Salicylates Acetaminophen Crossmatch 10/15/18 10/15/18 10/15/18 12:00 12:00 12:11 WBC RBC Hgb 11.5 L Hct 34.0 L MCV RDW Plt Count Lymph % (Auto) [place] % (Auto) [place] # Seg Neutrophils % Seg Neuts % (Manual) Lymphocytes % (Manual) Monocytes % (Manual) Seg Neutrophils # Seg Neutrophils # Man Lymphocytes # (Manual) Monocytes # (Manual) APTT Heparin Anti-Xa Level POC ABG pH POC ABG pCO2 POC ABG pO2 Sodium 147 H Potassium Chloride 108.5 H Carbon Dioxide BUN Creatinine 0.7 L Glucose 209 H POC Glucose 197 H Lactic Acid Calcium 7.3 L Phosphorus Total Bilirubin AST ALT Total Creatine Kinase CK-MB (CK-2) Troponin T Total Protein Albumin HDL Cholesterol Salicylates Acetaminophen Crossmatch 10/15/18 10/15/18 10/15/18 15:48 18:34 21:29 WBC RBC Hgb Hct MCV RDW Plt Count Lymph % (Auto) [place] % (Auto) [place] # Seg Neutrophils % Seg Neuts % (Manual) Lymphocytes % (Manual) Monocytes % (Manual) Seg Neutrophils # Seg Neutrophils # Man Lymphocytes # (Manual) Monocytes # (Manual) APTT Heparin Anti-Xa Level POC ABG pH POC ABG pCO2 POC ABG pO2 Sodium Potassium Chloride Carbon Dioxide BUN Creatinine Glucose POC Glucose 220 H 249 H 209 H Lactic Acid Calcium Phosphorus Total Bilirubin AST ALT Total Creatine Kinase CK-MB (CK-2) Troponin T Total Protein Albumin HDL Cholesterol Salicylates Acetaminophen Crossmatch 10/16/18 10/16/18 10/16/18 02:16 03:50 05:57 WBC RBC Hgb Hct MCV RDW Plt Count Lymph % (Auto) [place] % (Auto) [place] # Seg Neutrophils % Seg Neuts % (Manual) Lymphocytes % (Manual) Monocytes % (Manual) Seg Neutrophils # Seg Neutrophils # Man Lymphocytes # (Manual) Monocytes # (Manual) APTT Heparin Anti-Xa Level POC ABG pH POC ABG pCO2 55.8 H POC ABG pO2 Sodium Potassium Chloride Carbon Dioxide BUN Creatinine Glucose POC Glucose 110 H 209 H Lactic Acid Calcium Phosphorus Total Bilirubin AST ALT Total Creatine Kinase CK-MB (CK-2) Troponin T Total Protein Albumin HDL Cholesterol Salicylates Acetaminophen Crossmatch 10/16/18 10/16/18 10/16/18 10:51 12:51 15:01 WBC RBC Hgb Hct MCV RDW Plt Count Lymph % (Auto) [place] % (Auto) [place] # Seg Neutrophils % Seg Neuts % (Manual) Lymphocytes % (Manual) Monocytes % (Manual) Seg Neutrophils # Seg Neutrophils # Man Lymphocytes # (Manual) Monocytes # (Manual) APTT Heparin Anti-Xa Level POC ABG pH POC ABG pCO2 48.9 H POC ABG pO2 Sodium Potassium Chloride Carbon Dioxide BUN Creatinine Glucose POC Glucose 198 H 196 H Lactic Acid Calcium Phosphorus Total Bilirubin AST ALT Total Creatine Kinase CK-MB (CK-2) Troponin T Total Protein Albumin HDL Cholesterol Salicylates Acetaminophen Crossmatch 10/16/18 10/16/18 10/17/18 17:34 21:59 02:17 WBC RBC Hgb Hct MCV RDW Plt Count Lymph % (Auto) [place] % (Auto) [place] # Seg Neutrophils % Seg Neuts % (Manual) Lymphocytes % (Manual) Monocytes % (Manual) Seg Neutrophils # Seg Neutrophils # Man Lymphocytes # (Manual) Monocytes # (Manual) APTT Heparin Anti-Xa Level POC ABG pH POC ABG pCO2 POC ABG pO2 Sodium Potassium Chloride Carbon Dioxide BUN Creatinine Glucose POC Glucose 179 H 139 H 135 H Lactic Acid Calcium Phosphorus Total Bilirubin AST ALT Total Creatine Kinase CK-MB (CK-2) Troponin T Total Protein Albumin HDL Cholesterol Salicylates Acetaminophen Crossmatch 10/17/18 10/17/18 10/17/18 05:40 05:47 10:18 WBC RBC Hgb 11.3 L Hct 33.2 L MCV RDW Plt Count Lymph % (Auto) [place] % (Auto) [place] # Seg Neutrophils % Seg Neuts % (Manual) Lymphocytes % (Manual) Monocytes % (Manual) Seg Neutrophils # Seg Neutrophils # Man Lymphocytes # (Manual) Monocytes # (Manual) APTT Heparin Anti-Xa Level POC ABG pH POC ABG pCO2 POC ABG pO2 Sodium Potassium Chloride Carbon Dioxide BUN Creatinine Glucose POC Glucose 125 H 139 H Lactic Acid Calcium Phosphorus Total Bilirubin AST ALT Total Creatine Kinase CK-MB (CK-2) Troponin T Total Protein Albumin HDL Cholesterol Salicylates Acetaminophen Crossmatch 10/17/18 10/18/18 10/18/18 23:11 08:49 11:31 WBC RBC Hgb Hct MCV RDW Plt Count Lymph % (Auto) [place] % (Auto) [place] # Seg Neutrophils % Seg Neuts % (Manual) Lymphocytes % (Manual) Monocytes % (Manual) Seg Neutrophils # Seg Neutrophils # Man Lymphocytes # (Manual) Monocytes # (Manual) APTT Heparin Anti-Xa Level POC ABG pH POC ABG pCO2 POC ABG pO2 Sodium Potassium Chloride Carbon Dioxide BUN Creatinine Glucose POC Glucose 165 H 125 H 182 H Lactic Acid Calcium Phosphorus Total Bilirubin AST ALT Total Creatine Kinase CK-MB (CK-2) Troponin T Total Protein Albumin HDL Cholesterol Salicylates Acetaminophen Crossmatch 10/18/18 10/18/18 10/19/18 16:12 21:02 00:28 WBC RBC Hgb 11.4 L Hct 33.6 L MCV RDW Plt Count Lymph % (Auto) [place] % (Auto) 14.0 H [place] # 1.2 H Seg Neutrophils % Seg Neuts % (Manual) Lymphocytes % (Manual) Monocytes % (Manual) Seg Neutrophils # Seg Neutrophils # Man Lymphocytes # (Manual) Monocytes # (Manual) APTT Heparin Anti-Xa Level POC ABG pH POC ABG pCO2 POC ABG pO2 Sodium Potassium Chloride Carbon Dioxide BUN Creatinine Glucose POC Glucose 168 H 324 H Lactic Acid Calcium Phosphorus Total Bilirubin AST ALT Total Creatine Kinase CK-MB (CK-2) Troponin T Total Protein Albumin HDL Cholesterol Salicylates Acetaminophen Crossmatch 10/19/18 10/19/18 10/19/18 04:57 04:57 07:32 WBC RBC Hgb 11.7 L Hct 34.0 L MCV RDW Plt Count Lymph % (Auto) [place] % (Auto) [place] # Seg Neutrophils % Seg Neuts % (Manual) Lymphocytes % (Manual) Monocytes % (Manual) Seg Neutrophils # Seg Neutrophils # Man Lymphocytes # (Manual) Monocytes # (Manual) APTT Heparin Anti-Xa Level POC ABG pH POC ABG pCO2 POC ABG pO2 Sodium Potassium 3.5 L Chloride 108.6 H Carbon Dioxide BUN Creatinine 0.6 L Glucose POC Glucose 159 H Lactic Acid Calcium 7.9 L Phosphorus Total Bilirubin AST ALT Total Creatine Kinase CK-MB (CK-2) Troponin T Total Protein Albumin HDL Cholesterol Salicylates Acetaminophen Crossmatch 10/19/18 10/19/18 10/20/18 16:25 20:59 12:04 WBC RBC Hgb Hct MCV RDW Plt Count Lymph % (Auto) [place] % (Auto) [place] # Seg Neutrophils % Seg Neuts % (Manual) Lymphocytes % (Manual) Monocytes % (Manual) Seg Neutrophils # Seg Neutrophils # Man Lymphocytes # (Manual) Monocytes # (Manual) APTT Heparin Anti-Xa Level POC ABG pH POC ABG pCO2 POC ABG pO2 Sodium Potassium Chloride Carbon Dioxide BUN Creatinine Glucose POC Glucose 134 H 110 H 338 H Lactic Acid Calcium Phosphorus Total Bilirubin AST ALT Total Creatine Kinase CK-MB (CK-2) Troponin T Total Protein Albumin HDL Cholesterol Salicylates Acetaminophen Crossmatch 10/20/18 10/20/18 10/21/18 17:55 22:07 04:59 WBC RBC Hgb 11.6 L Hct 33.9 L MCV RDW Plt Count Lymph % (Auto) [place] % (Auto) 9.7 H [place] # 0.9 H Seg Neutrophils % 70.7 H Seg Neuts % (Manual) Lymphocytes % (Manual) Monocytes % (Manual) Seg Neutrophils # Seg Neutrophils # Man Lymphocytes # (Manual) Monocytes # (Manual) APTT Heparin Anti-Xa Level POC ABG pH POC ABG pCO2 POC ABG pO2 Sodium Potassium Chloride Carbon Dioxide BUN Creatinine Glucose POC Glucose 146 H 164 H Lactic Acid Calcium Phosphorus Total Bilirubin AST ALT Total Creatine Kinase CK-MB (CK-2) Troponin T Total Protein Albumin HDL Cholesterol Salicylates Acetaminophen Crossmatch 10/21/18 10/21/18 10/21/18 04:59 07:52 11:39 WBC RBC Hgb Hct MCV RDW Plt Count Lymph % (Auto) [place] % (Auto) [place] # Seg Neutrophils % Seg Neuts % (Manual) Lymphocytes % (Manual) Monocytes % (Manual) Seg Neutrophils # Seg Neutrophils # Man Lymphocytes # (Manual) Monocytes # (Manual) APTT Heparin Anti-Xa Level POC ABG pH POC ABG pCO2 POC ABG pO2 Sodium Potassium 3.5 L Chloride 107.1 H Carbon Dioxide BUN Creatinine 0.5 L Glucose 158 H POC Glucose 142 H 194 H Lactic Acid Calcium 7.5 L Phosphorus Total Bilirubin AST ALT Total Creatine Kinase CK-MB (CK-2) Troponin T Total Protein 5.6 L Albumin 2.0 L HDL Cholesterol Salicylates Acetaminophen Crossmatch 10/21/18 10/21/18 10/22/18 17:05 20:37 05:38 WBC RBC 3.48 L Hgb 10.8 L Hct 31.7 L MCV RDW Plt Count 458 H Lymph % (Auto) [place] % (Auto) 10.5 H [place] # Seg Neutrophils % Seg Neuts % (Manual) Lymphocytes % (Manual) Monocytes % (Manual) Seg Neutrophils # Seg Neutrophils # Man Lymphocytes # (Manual) Monocytes # (Manual) APTT Heparin Anti-Xa Level POC ABG pH POC ABG pCO2 POC ABG pO2 Sodium Potassium Chloride Carbon Dioxide BUN Creatinine Glucose POC Glucose 167 H 182 H Lactic Acid Calcium Phosphorus Total Bilirubin AST ALT Total Creatine Kinase CK-MB (CK-2) Troponin T Total Protein Albumin HDL Cholesterol Salicylates Acetaminophen Crossmatch 10/22/18 10/22/18 10/22/18 05:38 07:48 12:08 WBC RBC Hgb Hct MCV RDW Plt Count Lymph % (Auto) [place] % (Auto) [place] # Seg Neutrophils % Seg Neuts % (Manual) Lymphocytes % (Manual) Monocytes % (Manual) Seg Neutrophils # Seg Neutrophils # Man Lymphocytes # (Manual) Monocytes # (Manual) APTT Heparin Anti-Xa Level POC ABG pH POC ABG pCO2 POC ABG pO2 Sodium Potassium Chloride Carbon Dioxide BUN Creatinine 0.5 L Glucose 146 H POC Glucose 130 H 167 H Lactic Acid Calcium 7.8 L Phosphorus Total Bilirubin AST 41 H ALT Total Creatine Kinase CK-MB (CK-2) Troponin T Total Protein 5.5 L Albumin 2.1 L HDL Cholesterol Salicylates Acetaminophen Crossmatch 10/22/18 10/22/18 10/23/18 16:45 21:42 04:38 WBC RBC Hgb 11.7 L Hct 34.7 L MCV RDW Plt Count 523 H Lymph % (Auto) [place] % (Auto) 8.7 H [place] # Seg Neutrophils % 71.6 H Seg Neuts % (Manual) Lymphocytes % (Manual) Monocytes % (Manual) Seg Neutrophils # Seg Neutrophils # Man Lymphocytes # (Manual) Monocytes # (Manual) APTT Heparin Anti-Xa Level POC ABG pH POC ABG pCO2 POC ABG pO2 Sodium Potassium Chloride Carbon Dioxide BUN Creatinine Glucose POC Glucose 113 H 134 H Lactic Acid Calcium Phosphorus Total Bilirubin AST ALT Total Creatine Kinase CK-MB (CK-2) Troponin T Total Protein Albumin HDL Cholesterol Salicylates Acetaminophen Crossmatch 10/23/18 10/23/18 10/23/18 04:38 07:56 11:15 WBC RBC Hgb Hct MCV RDW Plt Count Lymph % (Auto) [place] % (Auto) [place] # Seg Neutrophils % Seg Neuts % (Manual) Lymphocytes % (Manual) Monocytes % (Manual) Seg Neutrophils # Seg Neutrophils # Man Lymphocytes # (Manual) Monocytes # (Manual) APTT Heparin Anti-Xa Level POC ABG pH POC ABG pCO2 POC ABG pO2 Sodium Potassium Chloride Carbon Dioxide BUN 7 L Creatinine 0.5 L Glucose 150 H POC Glucose 123 H 212 H Lactic Acid Calcium 8.0 L Phosphorus Total Bilirubin AST 55 H ALT Total Creatine Kinase CK-MB (CK-2) Troponin T Total Protein 6.2 L Albumin 2.3 L HDL Cholesterol Salicylates Acetaminophen Crossmatch 10/23/18 10/23/18 10/24/18 16:06 22:01 05:56 WBC 11.8 H RBC 3.64 L Hgb 11.2 L Hct 33.4 L MCV RDW Plt Count 564 H Lymph % (Auto) 11.3 L [place] % (Auto) [place] # Seg Neutrophils % 80.2 H Seg Neuts % (Manual) Lymphocytes % (Manual) Monocytes % (Manual) Seg Neutrophils # 9.4 H Seg Neutrophils # Man Lymphocytes # (Manual) Monocytes # (Manual) APTT Heparin Anti-Xa Level POC ABG pH POC ABG pCO2 POC ABG pO2 Sodium Potassium Chloride Carbon Dioxide BUN Creatinine Glucose POC Glucose 152 H 235 H Lactic Acid Calcium Phosphorus Total Bilirubin AST ALT Total Creatine Kinase CK-MB (CK-2) Troponin T Total Protein Albumin HDL Cholesterol Salicylates Acetaminophen Crossmatch 10/24/18 10/24/18 10/24/18 05:56 07:52 11:58 WBC RBC Hgb Hct MCV RDW Plt Count Lymph % (Auto) [place] % (Auto) [place] # Seg Neutrophils % Seg Neuts % (Manual) Lymphocytes % (Manual) Monocytes % (Manual) Seg Neutrophils # Seg Neutrophils # Man Lymphocytes # (Manual) Monocytes # (Manual) APTT Heparin Anti-Xa Level POC ABG pH POC ABG pCO2 POC ABG pO2 Sodium Potassium Chloride Carbon Dioxide BUN Creatinine 0.5 L Glucose 175 H POC Glucose 156 H 238 H Lactic Acid Calcium 8.0 L Phosphorus Total Bilirubin AST 44 H ALT Total Creatine Kinase CK-MB (CK-2) Troponin T Total Protein 6.2 L Albumin 2.4 L HDL Cholesterol Salicylates Acetaminophen Crossmatch 10/24/18 10/24/18 10/25/18 16:20 22:13 07:53 WBC RBC Hgb Hct MCV RDW Plt Count Lymph % (Auto) [place] % (Auto) [place] # Seg Neutrophils % Seg Neuts % (Manual) Lymphocytes % (Manual) Monocytes % (Manual) Seg Neutrophils # Seg Neutrophils # Man Lymphocytes # (Manual) Monocytes # (Manual) APTT Heparin Anti-Xa Level POC ABG pH POC ABG pCO2 POC ABG pO2 Sodium Potassium Chloride Carbon Dioxide BUN Creatinine Glucose POC Glucose 60 L 261 H 211 H Lactic Acid Calcium Phosphorus Total Bilirubin AST ALT Total Creatine Kinase CK-MB (CK-2) Troponin T Total Protein Albumin HDL Cholesterol Salicylates Acetaminophen Crossmatch 10/25/18 10/25/18 10/25/18 11:03 16:02 22:45 WBC RBC Hgb Hct MCV RDW Plt Count Lymph % (Auto) [place] % (Auto) [place] # Seg Neutrophils % Seg Neuts % (Manual) Lymphocytes % (Manual) Monocytes % (Manual) Seg Neutrophils # Seg Neutrophils # Man Lymphocytes # (Manual) Monocytes # (Manual) APTT Heparin Anti-Xa Level POC ABG pH POC ABG pCO2 POC ABG pO2 Sodium Potassium Chloride Carbon Dioxide BUN Creatinine Glucose POC Glucose 137 H 186 H 140 H Lactic Acid Calcium Phosphorus Total Bilirubin AST ALT Total Creatine Kinase CK-MB (CK-2) Troponin T Total Protein Albumin HDL Cholesterol Salicylates Acetaminophen Crossmatch 10/26/18 10/26/18 10/26/18 08:13 10:08 11:28 WBC RBC Hgb Hct MCV RDW Plt Count Lymph % (Auto) [place] % (Auto) [place] # Seg Neutrophils % Seg Neuts % (Manual) Lymphocytes % (Manual) Monocytes % (Manual) Seg Neutrophils # Seg Neutrophils # Man Lymphocytes # (Manual) Monocytes # (Manual) APTT Heparin Anti-Xa Level POC ABG pH POC ABG pCO2 POC ABG pO2 Sodium Potassium Chloride Carbon Dioxide BUN Creatinine Glucose POC Glucose 144 H 110 H 201 H Lactic Acid Calcium Phosphorus Total Bilirubin AST ALT Total Creatine Kinase CK-MB (CK-2) Troponin T Total Protein Albumin HDL Cholesterol Salicylates Acetaminophen Crossmatch 10/26/18 10/26/18 10/27/18 16:36 22:29 07:34 WBC RBC Hgb Hct MCV RDW Plt Count Lymph % (Auto) [place] % (Auto) [place] # Seg Neutrophils % Seg Neuts % (Manual) Lymphocytes % (Manual) Monocytes % (Manual) Seg Neutrophils # Seg Neutrophils # Man Lymphocytes # (Manual) Monocytes # (Manual) APTT Heparin Anti-Xa Level POC ABG pH POC ABG pCO2 POC ABG pO2 Sodium Potassium Chloride Carbon Dioxide BUN Creatinine Glucose POC Glucose 147 H 302 H 182 H Lactic Acid Calcium Phosphorus Total Bilirubin AST ALT Total Creatine Kinase CK-MB (CK-2) Troponin T Total Protein Albumin HDL Cholesterol Salicylates Acetaminophen Crossmatch 10/27/18 10/27/18 10/27/18 11:57 13:33 14:55 WBC RBC Hgb Hct MCV RDW Plt Count 550 H Lymph % (Auto) [place] % (Auto) [place] # Seg Neutrophils % Seg Neuts % (Manual) Lymphocytes % (Manual) Monocytes % (Manual) Seg Neutrophils # Seg Neutrophils # Man Lymphocytes # (Manual) Monocytes # (Manual) APTT Heparin Anti-Xa Level POC ABG pH POC ABG pCO2 POC ABG pO2 Sodium Potassium Chloride Carbon Dioxide BUN Creatinine Glucose POC Glucose 209 H Lactic Acid Calcium Phosphorus Total Bilirubin AST ALT Total Creatine Kinase CK-MB (CK-2) Troponin T Total Protein Albumin HDL Cholesterol Salicylates Acetaminophen Crossmatch See Detail 10/27/18 10/27/18 10/28/18 17:09 21:45 07:45 WBC RBC Hgb Hct MCV RDW Plt Count Lymph % (Auto) [place] % (Auto) [place] # Seg Neutrophils % Seg Neuts % (Manual) Lymphocytes % (Manual) Monocytes % (Manual) Seg Neutrophils # Seg Neutrophils # Man Lymphocytes # (Manual) Monocytes # (Manual) APTT Heparin Anti-Xa Level POC ABG pH POC ABG pCO2 POC ABG pO2 Sodium Potassium Chloride Carbon Dioxide BUN Creatinine Glucose POC Glucose 233 H 136 H 201 H Lactic Acid Calcium Phosphorus Total Bilirubin AST ALT Total Creatine Kinase CK-MB (CK-2) Troponin T Total Protein Albumin HDL Cholesterol Salicylates Acetaminophen Crossmatch 10/28/18 10/28/18 10/28/18 11:17 16:34 19:51 WBC RBC Hgb Hct MCV RDW Plt Count Lymph % (Auto) [place] % (Auto) [place] # Seg Neutrophils % Seg Neuts % (Manual) Lymphocytes % (Manual) Monocytes % (Manual) Seg Neutrophils # Seg Neutrophils # Man Lymphocytes # (Manual) Monocytes # (Manual) APTT Heparin Anti-Xa Level < 0.10 L POC ABG pH POC ABG pCO2 POC ABG pO2 Sodium Potassium Chloride Carbon Dioxide BUN Creatinine Glucose POC Glucose 116 H 168 H Lactic Acid Calcium Phosphorus Total Bilirubin AST ALT Total Creatine Kinase CK-MB (CK-2) Troponin T Total Protein Albumin HDL Cholesterol Salicylates Acetaminophen Crossmatch Allied health notes reviewed: nursing
[2018-10-29] MEDS ORDERED: HEPARIN 10,000 UNITS/10 ML IV ONE (00:27)
[2018-10-29] MEDS: DILAUDID IV PRN ×5 (02:43→20:14)
[2018-10-29 07:35] LABS: Hematocrit 35.5 % (35.5-45.6); Hemoglobin 12.2 gm/dl (11.8-15.2)
[2018-10-29] MEDS: DUONEB *Not for PRN Use IH SCH ×3 (07:51→19:42)
[2018-10-29] MEDS: HumuLIN R SUB-Q SCH ×3 (08:35→22:06)
[2018-10-29] MEDS: LOPRESSOR PO SCH ×2 (09:11→21:58)
[2018-10-29] MEDS: PEPCID PO SCH ×2 (09:11→21:58)
[2018-10-29] MEDS: celeXA PO SCH (09:11)
--- NOTE | 2018-10-29 09:21 | Progress Note ---
Assessment and Plan Assessment and plan: --Bilateral lower extremity PVD with gangrene left greater than right. The patient has distal aortic thrombus and right external iliac occlusion and left popliteal and infrapopliteal occlusion. Vascular surgery reports that Plan would be a left major amputation (BKA vs AKA to be determined based on residual non-necrotic tissue), aortoiliac stenting and fem-fem bypass. Transitioned patient from eliquis to heparin drip. After surgery, vascular will transition patient back from heparin drip to eliquis when appropriate. May also need right TMA, toe amputations, or to allow for autoamputation after major surgery. --acute/subacute right FT CVA Initial CT head, no acute finding, 10/13/18 found to have left-sided weakness MRI brain showed numerous acute/subacute multilobar infarcts involving the cere gustabo and cerebellum including Hemorrhagic transformation of the right frontal and biparietal lobes was Not a candidate for tPA, monitor off aspirin per teleneurology QUIQUE ; no thrombus or shunt, Speech recommended pureed diet --Severe sepsis with shock; present on admission Probably due to aspiration pneumonia, completed total 7 days of antibiotics off pressors --Paroxysmal atrial fibrillation. Currently on heparin drip --LLL pneumonia : completed treatment --Acute respiratory failure with hypoxia and hypercapnia: Requiring intubation, extubated, nebs , supplemental O2 as needed --Hyperglycemia:cont SSI for now, diabetic diet --Acute toxic/metabolic encephalopathy, improved --Seizure; seizure precautions, no new episodes of seizure Ativan when necessary, neurology did not recommend antiepileptic medications --Elevated troponin/NSTEMI type 2 Echocardiogram for further evaluation - Ef 25-30% Cardiology consulted, medical Mx for now, --Acute systolic CHF, Ef 25-30%, anti-failure medications --ARF, due to vasomotor nephropathy, resolved --Hyperkalemia, resolved --Abnormal LFT Probably due to sepsis and chronic hepatitis C virus infection Abdominal US showed no sign of cirrhosis --Severe protein calorie malnutrition; nutrition supplements Dietitian consulted --DVT prophylaxis with heparin and GI prophylaxis with famotidine --Tobacco abuse. Patient with a long smoking history of one pack per day or more since age 9. Patient was counseled on smoking cessation. Disposition: Plan is for surgery today if cleared by cardiology. History Interval history: No new issues overnight. Hospitalist Physical - Constitutional Vitals: Temp Pulse Resp BP Pulse Ox 98.3 F 60 20 102/61 93 10/29/18 05:05 10/29/18 08:01 10/29/18 08:01 10/29/18 05:05 10/29/18 07:51 General appearance: Present: no acute distress - EENT Eyes: Present: PERRL, EOM intact ENT: hearing intact, clear oral mucosa, dentition normal - Neck Neck: Present: supple, normal ROM - Respiratory Respiratory effort: normal Respiratory: bilateral: CTA - Cardiovascular Rhythm: regular Heart Sounds: Present: S1 & S2. Absent: gallop, rub - Extremities Extremities: No edema, Full ROM Extremity abnormal: cyanosis, black, cold, other (bilateral lower extremity ischemia/necrotic toes) - Abdominal General gastrointestinal: soft, non-tender, non-distended, normal bowel sounds - Integumentary Integumentary: Present: clear, warm, dry - Neurologic Neurologic: CNII-XII intact, moves all extremities Results - Labs CBC & Chem 7: 10/29/18 07:11 10/24/18 05:56 Labs: Laboratory Last Values WBC 11.8 K/mm3 (4.5-11.0) H 10/24/18 05:56 RBC 3.64 M/mm3 (3.65-5.03) L 10/24/18 05:56 Hgb 12.2 gm/dl (11.8-15.2) 10/29/18 07:11 Hct 35.5 % (35.5-45.6) 10/29/18 07:11 MCV 92 fl (84-94) 10/24/18 05:56 MCH 31 pg (28-32) 10/24/18 05:56 MCHC 34 % (32-34) 10/24/18 05:56 RDW 14.2 % (13.2-15.2) 10/24/18 05:56 Plt Count 470 K/mm3 (140-440) H 10/29/18 07:11 Lymph % (Auto) 11.3 % (13.4-35.0) L 10/24/18 05:56 [place] % (Auto) 7.1 % (0.0-7.3) 10/24/18 05:56 Eos % (Auto) 1.0 % (0.0-4.3) 10/24/18 05:56 Baso % (Auto) 0.4 % (0.0-1.8) 10/24/18 05:56 Lymph # 1.3 K/mm3 (1.2-5.4) 10/24/18 05:56 [place] # 0.8 K/mm3 (0.0-0.8) 10/24/18 05:56 Eos # 0.1 K/mm3 (0.0-0.4) 10/24/18 05:56 Baso # 0.0 K/mm3 (0.0-0.1) 10/24/18 05:56 Add Manual Diff Complete 10/12/18 04:04 Total Counted 100 10/12/18 04:04 Seg Neutrophils % 80.2 % (40.0-70.0) H 10/24/18 05:56 Seg Neuts % (Manual) 32.0 % (40.0-70.0) L 10/12/18 04:04 39.0 % 10/12/18 04:04 19.0 % (13.4-35.0) 10/12/18 04:04 Reactive Lymphs % (Man) 0 % 10/12/18 04:04 8.0 % (0.0-7.3) H 10/12/18 04:04 0 % (0.0-4.3) 10/12/18 04:04 0 % (0.0-1.8) 10/12/18 04:04 2.0 % 10/12/18 04:04 0 % 10/12/18 04:04 0 % 10/12/18 04:04 0 % 10/12/18 04:04 Nucleated RBC % Not Reportable 10/12/18 04:04 Seg Neutrophils # 9.4 K/mm3 (1.8-7.7) H 10/24/18 05:56 Seg Neutrophils # Man 7.8 K/mm3 (1.8-7.7) H 10/12/18 04:04 Band Neutrophils # 9.5 K/mm3 10/12/18 04:04 4.6 K/mm3 (1.2-5.4) 10/12/18 04:04 Abs React Lymphs (Man) 0.0 K/mm3 10/12/18 04:04 2.0 K/mm3 (0.0-0.8) H 10/12/18 04:04 0.0 K/mm3 (0.0-0.4) 10/12/18 04:04 0.0 K/mm3 (0.0-0.1) 10/12/18 04:04 0.5 K/mm3 10/12/18 04:04 0.0 K/mm3 10/12/18 04:04 0.0 K/mm3 10/12/18 04:04 Blast Cells # 0.0 K/mm3 10/12/18 04:04 Pathologist Review 10/11/18 00:16 WBC Morphology Not Reportable 10/12/18 04:04 Hypersegmented Neuts Not Reportable 10/12/18 04:04 Hyposegmented Neuts Not Reportable 10/12/18 04:04 Hypogranular Neuts Not Reportable 10/12/18 04:04 Not Reportable 10/12/18 04:04 Not Reportable 10/12/18 04:04 Not Reportable 10/12/18 04:04 Not Reportable 10/12/18 04:04 Not Reportable 10/12/18 04:04 Not Reportable 10/12/18 04:04 Appears normal 10/12/18 04:04 Not Reportable 10/12/18 04:04 Plt Clumps, EDTA Not Reportable 10/12/18 04:04 Not Reportable 10/12/18 04:04 Not Reportable 10/12/18 04:04 Not Reportable 10/12/18 04:04 Plt Morphology Comment Not Reportable 10/12/18 04:04 RBC Morphology Not Reportable 10/12/18 04:04 Dimorphic RBCs Not Reportable 10/12/18 04:04 Not Reportable 10/12/18 04:04 Not Reportable 10/12/18 04:04 Not Reportable 10/12/18 04:04 1+ 10/12/18 04:04 Not Reportable 10/12/18 04:04 Not Reportable 10/12/18 04:04 Not Reportable 10/12/18 04:04 Not Reportable 10/12/18 04:04 Not Reportable 10/12/18 04:04 Not Reportable 10/12/18 04:04 Not Reportable 10/12/18 04:04 Not Reportable 10/12/18 04:04 Not Reportable 10/12/18 04:04 Not Reportable 10/12/18 04:04 Not Reportable 10/12/18 04:04 Not Reportable 10/12/18 04:04 Not Reportable 10/12/18 04:04 Not Reportable 10/12/18 04:04 Not Reportable 10/12/18 04:04 Acanthocytes (Spur) Not Reportable 10/12/18 04:04 Rouleaux Not Reportable 10/12/18 04:04 Not Reportable 10/12/18 04:04 Not Reportable 10/12/18 04:04 Not Reportable 10/12/18 04:04 Not Reportable 10/12/18 04:04 Hem Pathologist Commnt No 10/12/18 04:04 PT 13.6 Sec. (12.2-14.9) 10/27/18 13:33 INR 0.98 (0.87-1.13) 10/27/18 13:33 APTT 30.3 Sec. (24.2-36.6) 10/27/18 13:33 Heparin Anti-Xa Level 0.13 U.I./ml (0.3-0.7) L 10/29/18 07:11 Heparin Anti-Xa, Unfract Negative (Negative) 10/15/18 12:00 POC ABG pH 7.393 (7.35-7.45) 10/16/18 12:51 POC ABG pCO2 48.9 (35-45) H 10/16/18 12:51 POC ABG pO2 92 (80-105) 10/16/18 12:51 POC ABG HCO3 29.8 (22-26 mml/L) 10/16/18 12:51 POC ABG Total CO2 31 (23-27mmol/L) 10/16/18 12:51 POC ABG O2 Sat 97 10/16/18 12:51 POC ABG Base Excess 5 ((-2) - (+3)mmol/L) 10/16/18 12:51 35 % 10/16/18 12:51 Sodium 138 mmol/L (137-145) 10/24/18 05:56 Potassium 4.4 mmol/L (3.6-5.0) 10/24/18 05:56 Chloride 102.0 mmol/L (98-107) 10/24/18 05:56 Carbon Dioxide 29 mmol/L (22-30) 10/24/18 05:56 11 mmol/L 10/24/18 05:56 BUN 9 mg/dL (9-20) 10/24/18 05:56 0.5 mg/dL (0.8-1.5) L 10/24/18 05:56 Estimated GFR > 60 ml/min 10/24/18 05:56 18 % 10/24/18 05:56 Glucose 175 mg/dL (75-100) H 10/24/18 05:56 POC Glucose 147 (70-105) H 10/29/18 07:43 Lactic Acid 2.70 mmol/L (0.7-2.0) H* 10/11/18 12:30 Calcium 8.0 mg/dL (8.4-10.2) L 10/24/18 05:56 Phosphorus 2.80 mg/dL (2.5-4.5) 10/21/18 04:59 Magnesium 1.90 mg/dL (1.7-2.3) 10/21/18 04:59 0.30 mg/dL (0.1-1.2) 10/24/18 05:56 AST 44 units/L (5-40) H 10/24/18 05:56 ALT 40 units/L (7-56) 10/24/18 05:56 57 units/L (35-129) 10/24/18 05:56 3647 units/L (55-170) H 10/12/18 04:04 CK-MB (CK-2) 48.3 ng/mL (0.0-4.0) H 10/12/18 04:04 CK-MB (CK-2) Rel Index 1.3 (0-4) 10/12/18 04:04 0.816 ng/mL (0.00-0.029) H* 10/13/18 16:15 6.2 g/dL (6.3-8.2) L 10/24/18 05:56 2.4 g/dL (3.9-5) L 10/24/18 05:56 0.6 % 10/24/18 05:56 Triglycerides 87 mg/dL (2-149) 10/11/18 00:16 Cholesterol 73 mg/dL (50-199) 10/11/18 00:16 51 mg/dL (50-130) 10/11/18 00:16 19 mg/dL (40-59) L 10/11/18 00:16 3.84 % 10/11/18 00:16 See scanned report 10/15/18 12:00 Yellow (Yellow) 10/11/18 01:42 Cloudy (Clear) 10/11/18 01:42 6.0 (5.0-7.0) 10/11/18 01:42 Ur Specific [place] 1.011 (1.003-1.030) 10/11/18 01:42 100 mg/dl mg/dL (Negative) 10/11/18 01:42 >=500 mg/dL (Negative) 10/11/18 01:42 Neg mg/dL (Negative) 10/11/18 01:42 Mod (Negative) 10/11/18 01:42 Neg (Negative) 10/11/18 01:42 Neg (Negative) 10/11/18 01:42 4.0 mg/dL (<2.0) 10/11/18 01:42 Ur Leukocyte Esterase Neg (Negative) 10/11/18 01:42 5.0 /HPF (0.0-6.0) 10/11/18 01:42 2.0 /HPF (0.0-6.0) 10/11/18 01:42 U Epithel Cells (Auto) < 1.0 /HPF (0-13.0) 10/11/18 01:42 Amorphous Crystals 1+ 10/11/18 01:42 Few /HPF 10/11/18 01:42 2+ /HPF (ENVIRONMENTAL ATTORNEY) 10/11/18 01:42 Vancomycin Trough 8.3 ug/mL (5.0-20.0) 10/13/18 05:40 Salicylates < 0.3 mg/dL (2.8-20.0) L 10/11/18 00:16 Presumptive positive 10/11/18 01:42 Presumptive negative 10/11/18 01:42 Acetaminophen < 5.0 ug/mL (10.0-30.0) L 10/11/18 00:16 Ur Barbiturates Screen Presumptive negative 10/11/18 01:42 Ur Phencyclidine Scrn Presumptive negative 10/11/18 01:42 Ur Amphetamines Screen Presumptive positive 10/11/18 01:42 U Benzodiazepines Scrn Presumptive positive 10/11/18 01:42 Presumptive negative 10/11/18 01:42 U Marijuana (THC) Screen Presumptive negative 10/11/18 01:42 Disclamer 10/11/18 01:42 Plasma/Serum Alcohol < 0.01 % (0-0.07) 10/11/18 00:16 Heparin-induced Plt Ab Negative (Negative) 10/15/18 12:00 UF Heparin High Dose 0 % Release 10/15/18 12:00 AURELIO UFH Low Dose 0.1 0 % Release 10/15/18 12:00 AURELIO UFH Low Dose 0.5 0 % Release 10/15/18 12:00 Blood Type O POSITIVE 10/27/18 14:55 Antibody Screen Positive 10/27/18 14:55 Antibody Identification Negative 10/27/18 14:55 Crossmatch See Detail 10/27/18 14:55 Active Medications - Current Medications Current Medications: Generic Name Dose Route Start Last Admin Trade Name Freq PRN Reason Stop Dose Admin Acetaminophen 650 mg 10/11/18 04:04 10/21/18 22:21 Tylenol PO 650 mg Q4H PRN Administration Pain MILD(1-3)/Fever >100.5/HOLLINS Acetaminophen 650 mg 10/18/18 11:53 Tylenol WA Q4H PRN Pain, Mild(1-3)/Fever>100.5/HOLLINS Albuterol 2.5 mg 10/19/18 00:54 Proventil IH Q4HRT PRN Shortness Of Breath Albuterol/Ipratropium 1 ampul 10/19/18 08:00 10/29/18 07:51 Duoneb *Not For Prn Use* IH 1 ampul TIDRT ISAAC Administration Alprazolam 1 mg 10/20/18 13:06 10/28/18 16:48 Xanax PO 1 mg TID PRN Administration Anxiety Lipase/Protease/Amylase 1 each 10/18/18 13:[address] 10,500 Unit FEEDTUBE PRN PRN For Clogged Feeding Tube Citalopram Hydrobromide 10 mg 10/21/18 10:00 10/28/18 09:09 Celexa PO 10 mg QDAY ISAAC Administration Dextrose 0 ml 10/11/18 03:57 10/11/18 10:18 D50w (25gm) Syringe IV 10 ml PRN PRN Administration Hypoglycemia Famotidine 20 mg 10/15/18 10:00 10/28/18 22:27 Pepcid PO 20 mg BID ISAAC Administration Hydromorphone HCl 1 mg 10/28/18 09:07 10/29/18 02:43 Dilaudid IV 1 mg Q4H PRN Administration Pain , Severe (7-10) Hydrophilic Ointment 1 applic 10/11/18 14:00 Vaseline Lip Therapy TP Q2HR PRN Dry Lips Sodium Chloride 500 mls @ 50 mls/hr 10/26/18 08:00 Nacl 0.9% 500 Ml IV DIRECT ISAAC Heparin Sodium/Sodium Chloride 25,000 unit in 500 mls @ 18 mls/hr 10/27/18 14:00 10/28/18 23:19 Heparin/ 0.45% Nacl-25,000 Unit/500 Ml IV 1,050 units/hr TITR ISAAC 21 mls/hr Titration Protocol 900 UNITS/HR Insulin Human Regular 0 units 10/17/18 11:30 10/29/18 08:35 Humulin R SUB-Q Not Given ACHS [facility] Protocol Metoprolol Tartrate 25 mg 10/18/18 22:00 10/28/18 22:15 Lopressor PO Not Given BID [facility] Metoprolol Tartrate 2.5 mg 10/18/18 18:51 10/18/18 22:19 Lopressor IV 2.5 mg Q6H PRN Administration Tachyarrhythmias Multi-Ingred Cream/Lotion/Oil/Oint 1 applic 10/11/18 14:00 Artificial Tears Ophth Oint OU Q4HR PRN Dry Eye(s) Ondansetron HCl 4 mg 10/11/18 04:04 Zofran IV Q8H PRN Nausea And Vomiting Oxycodone/Acetaminophen 1 tab 10/18/18 13:45 10/28/18 05:46 Percocet 5/325 PO 1 tab Q6H PRN Administration Pain, Moderate (4-6) Quetiapine Fumarate 200 mg 10/14/18 22:00 10/28/18 22:15 Seroquel PO 200 mg QHS ISAAC Administration Sodium Bicarbonate 325 mg 10/18/18 13:43 Sodium Bicarbonate FEEDTUBE PRN PRN For Clogged Feeding Tube Nutrition/Malnutrition Assess - Dietary Evaluation Nutrition/Malnutrition Findings: Nutrition Notes Start: 10/11/18 12:39 Freq: Status: Active Protocol: Document 10/28/18 13:44 RM (Rec: 10/28/18 13:53 RM [id number]) Nutrition Notes Initial or Follow up Reassessment Current Diagnosis Acute Kidney Injury,COPD, Diabetes,Sepsis,Hypertension, Stroke Other Pertinent Diagnosis Sacral PU, R & L leg skin tear , Hep C, cellulitis, Opiate overdose, AMS Current Diet [facility] soft w/chopped meats Labs/Tests No recent labs Pertinent Medications Reviewed Height 6 ft 3 in Weight 64.5 kg [place] Body Weight (kg) 89.09 BMI 17.7 Subjective/Other Information [facility] soft w/chopped meats recommended per bedside dysphagia evaluation 10/27/18. Pt asleep at time of visit. Per nurse pt eats 50% of his meals. Percent of energy/protein needs met: 46%/63% Burn Absent Trauma Absent #2 Nutrition Diagnosis Inadequate oral intake Diagnosis Progress(for reassessment Continues documentation) #1 Nutrition Diagnosis Malnutrition Diagnosis Progress(for reassessment Continues documentation) Is patient on ventilator? No Is Patient Ambulatory and/or Out of Bed No REE-([facility]-confined to bed) 1877.352 Kcal/Kg value to use for calculation 36 Approximate Energy Requirements Using 2322 kcal/Kg Calculation Used for Recommendations Kcal/kg Additional Notes Protein Needs: 79-99g (1.2-1. 5g/kg) Fluid Needs: 1 ml/kcal Nutrition Intervention Change Diet Order: Continue current Add Supplement/Snack (indicate name/kcal Glucerna BID /protein ) Provides kCal: 440 Provides Protein (gm) 20 Goal #1 Meet at least 75% of calorie and protein needs via PO and ONS intakes Goal #2 Wt gain/maintenance Anticipated Discharge Needs: [facility] soft w/chopped meat diet Follow-Up By: 10/31/18 Additional Comments Follow for PO and ONS intakes
--- NOTE | 2018-10-29 11:35 | Event Note ---
Date: 10/29/[address] Rodriguez yesterday, pt is at high cardiovascular risk for contemplated vascular procedure. There are no immediate cardiac contr aindications to proceeding with procedure at this time. Patient is cardiac melissa stable,however needs close monitoring perioperatively for any evidence of ischemia/myocardial injury. Erika STUART NP / DR. OSBORN
[2018-10-29] MEDS ORDERED: HEPARIN 10,000 UNITS/10 ML ONE (12:07)
[2018-10-29] MEDS ORDERED: RIFADIN ONE (12:07)
[2018-10-29] MEDS ORDERED: CATHFLO ONE (12:07)
[2018-10-29] MEDS ORDERED: NACL 0.9% 500 ML 500 ML ONE (12:07)
[2018-10-29 12:09] LABS: BUN/Creatinine Ratio 14; Blood Urea Nitrogen 7 mg/dL (9-20); Calcium 8.2 mg/dL (8.4-10.2); Hemolysis Index 56
[2018-10-29 12:10] LABS: INR 1.01 (0.87-1.13)
[2018-10-29] MEDS: LACTATED RINGERS 1,000 ML IV SCH ×2 (13:10→22:10)
--- NOTE | 2018-10-29 13:14 | Anesthesia Consultation ---
Anesthesia Consult and Med Hx Date of service: 10/29/18 - Airway Anesthetic Teeth Evaluation: Edentulous ROM Head & Neck: Adequate Mental/Hyoid Distance: Adequate Mallampati Class: Class II Intubation Access Assessment: Probably Good - Pulmonary Exam CTA: Yes (diminshed bilaterally) - Cardiac Exam Cardiac Exam: No Murmur (irregular rhythm) - Pre-Operative Health Status ASA Pre-Surgery Classification: ASA4 Proposed Anesthetic Plan: General - Pulmonary Hx Smoking: Yes Hx Asthma: Yes Hx Respiratory Symptoms: Yes (respiratory failure this admission 2/2 aspiration PNA; extubated 10/16.) SOB: Yes (when supine) COPD: Yes Home Oxygen Therapy: No Hx Pneumonia: Yes (presumed aspiration PNA this admission) - Cardiovascular System Hx Hypertension: Yes Hx Heart Attack/AMI: Yes (NSTEMI this admission; EF 35-40%) Hx Percutaneous Transluminal Coronary Angioplasty (PTCA): No Hx Cardia Arrhythmia: Yes (pA-fib w/ hx RVR this admission) Hx Pacemaker: No Hx Internal Defibrillator: No Hx Valvular Heart Disease: No Hx Peripheral Vascular Disease: Yes (previously on eliquis now on heparin gtt) - Central Nervous System Hx Seizures: Yes (witnessed seizure en route prior to admission) CVA: Yes (acute on chronic with left weakness) - Endocrine Hx Renal Disease: Yes (NINOSKA this admission now resolved) Hx Liver Disease: Yes (chronic HCV) Hx Insulin Dependent Diabetes: Yes - Hematic Hx Anemia: Yes - Other Systems Hx Substance Use: Yes (cocaine, heroin) Hx Obesity: No - Additional Comments Anesthesia Medical History Comments: Patient with multiple significant medical comorbidities including CHF, COPD, recent PNA, chronic HCV, polysubstance abuse, a-fib, and bilateral PVD scheduled for BKA vs AKA and limb salvage procedure. Previously evaluated by cardiology but had runs of V-tach overnight. Discussed again with cardiology today. Patient is high risk however no cardiac interventions at this time. Surgeon made aware of patient's overall state of health as well as recent arrthmias. Anesthetic risks, including potential need for intraop transfusion, postop ventilation, VA, CVA, or discussed with patient in room by Dr. Duff (anesthesiologist) and in pre-op holding by myself. Patient expresses understanding of these risks and wishes to proceed. Will plan for a-line and defib pad placement pre-induction.
[2018-10-29] MEDS ORDERED: AMIDATE IV ONE ×2 (13:15→13:44)
[2018-10-29] MEDS ORDERED: SUBLIMAZE ONE ×2 (13:15→17:56)
[2018-10-29] MEDS ORDERED: ZOFRAN ONE (13:15)
--- NOTE | 2018-10-29 13:15 | Anesthesia Day of Surgery ---
Anesthesia Day of Surgery - Day of Surgery Patient Examined: Yes Patient H&P Reviewed: Yes Patient is NPO: Yes Beta Blockers: Yes (last dose metoprolol today AM) Cardiac Clearance: Yes (see cardiology consult in EMR)
[2018-10-29] MEDS ORDERED: SUBLIMAZE IV ONE (13:30)
[2018-10-29] MEDS ORDERED: ZEMURON IV ONE (13:44)
[2018-10-29] MEDS ORDERED: NEO SYNEPHRINE ONE (13:44)
[2018-10-29] MEDS ORDERED: QUELICIN ONE (13:44)
[2018-10-29] MEDS ORDERED: NEO SYNEPHRINE/NS Syringe(OR USE) IV ONE (13:44)
[2018-10-29] MEDS ORDERED: CORDARONE IV ONE (14:16)
[2018-10-29] MEDS ORDERED: ANCEF ONE (15:44)
[2018-10-29] MEDS ORDERED: NARCAN 0.4 MG/1 ML IV PRN (16:03)
[2018-10-29] MEDS ORDERED: SUBLIMAZE IV PRN (16:03)
--- NOTE | 2018-10-29 16:35 | Progress Note ---
Subjective Date of service: 10/29/18 Principal diagnosis: Ac hypercapnic hypoxemic Resp failure; Drug OD; AE-COPD; NINOSKA; Seizures Interval history: reviewed all the notes and commented on response to REliquis therapy will monitor closely Objective - Vital Sign Vital Signs - 12hr 10/29/18 10/29/18 10/29/18 05:05 07:51 08:01 Temperature 98.3 F Pulse Rate 64 Pulse Rate [ 57 L 60 Anterior Bilateral Throughout] Respiratory 18 Rate Respiratory 18 20 Rate [Anterior Bilateral Throughout] Blood Pressure 102/61 O2 Sat by Pulse 93 93 Oximetry 10/29/18 10/29/18 10/29/18 09:11 12:15 12:35 Temperature 97.8 F 97.8 F Pulse Rate 116 H 90 90 Pulse Rate [ Anterior Bilateral Throughout] Respiratory 20 18 Rate Respiratory Rate [Anterior Bilateral Throughout] Blood Pressure 106/73 99/60 99/60 O2 Sat by Pulse 95 95 Oximetry 10/29/18 13:30 Temperature Pulse Rate Pulse Rate [ Anterior Bilateral Throughout] Respiratory 18 Rate Respiratory Rate [Anterior Bilateral Throughout] Blood Pressure O2 Sat by Pulse Oximetry - Laboratory Findings CBC and BMP: 10/29/18 07:11 10/29/18 07:11 Abnormal Lab Findings: Abnormal Labs 10/11/18 10/11/18 10/11/18 00:16 00:16 00:16 WBC 20.1 H RBC Hgb Hct MCV 98 H RDW 15.4 H Plt Count Lymph % (Auto) [place] % (Auto) [place] # Seg Neutrophils % Seg Neuts % (Manual) Lymphocytes % (Manual) 5.0 L Monocytes % (Manual) 25.0 H Seg Neutrophils # Seg Neutrophils # Man 9.2 H Lymphocytes # (Manual) 1.0 L Monocytes # (Manual) 5.0 H APTT Heparin Anti-Xa Level POC ABG pH POC ABG pCO2 POC ABG pO2 Sodium Potassium 5.8 H Chloride Carbon Dioxide 17 L BUN Creatinine 2.2 H Glucose 348 H POC Glucose Lactic Acid 13.70 H* Calcium 7.7 L Phosphorus Total Bilirubin 1.50 H AST 179 H ALT 110 H Total Creatine Kinase 324 H CK-MB (CK-2) Troponin T 0.257 H* Total Protein 5.9 L Albumin 2.9 L HDL Cholesterol 19 L Salicylates Acetaminophen Crossmatch 10/11/18 10/11/18 10/11/18 00:16 00:16 01:21 WBC RBC Hgb Hct MCV RDW Plt Count Lymph % (Auto) [place] % (Auto) [place] # Seg Neutrophils % Seg Neuts % (Manual) Lymphocytes % (Manual) Monocytes % (Manual) Seg Neutrophils # Seg Neutrophils # Man Lymphocytes # (Manual) Monocytes # (Manual) APTT Heparin Anti-Xa Level POC ABG pH 7.110 L POC ABG pCO2 50.3 H POC ABG pO2 65 L Sodium Potassium Chloride Carbon Dioxide BUN Creatinine Glucose POC Glucose Lactic Acid Calcium Phosphorus Total Bilirubin AST ALT Total Creatine Kinase CK-MB (CK-2) Troponin T Total Protein Albumin HDL Cholesterol Salicylates < 0.3 L Acetaminophen < 5.0 L Crossmatch 10/11/18 10/11/18 10/11/18 01:22 03:27 04:14 WBC RBC Hgb Hct MCV RDW Plt Count Lymph % (Auto) [place] % (Auto) [place] # Seg Neutrophils % Seg Neuts % (Manual) Lymphocytes % (Manual) Monocytes % (Manual) Seg Neutrophils # Seg Neutrophils # Man Lymphocytes # (Manual) Monocytes # (Manual) APTT Heparin Anti-Xa Level POC ABG pH POC ABG pCO2 POC ABG pO2 Sodium Potassium Chloride Carbon Dioxide BUN Creatinine Glucose POC Glucose Lactic Acid 8.50 H* 4.10 H* Calcium Phosphorus 4.90 H Total Bilirubin AST ALT Total Creatine Kinase CK-MB (CK-2) Troponin T Total Protein Albumin HDL Cholesterol Salicylates Acetaminophen Crossmatch 10/11/18 10/11/18 10/11/18 04:14 04:14 04:14 WBC RBC Hgb Hct MCV RDW Plt Count Lymph % (Auto) [place] % (Auto) [place] # Seg Neutrophils % Seg Neuts % (Manual) Lymphocytes % (Manual) Monocytes % (Manual) Seg Neutrophils # Seg Neutrophils # Man Lymphocytes # (Manual) Monocytes # (Manual) APTT Heparin Anti-Xa Level POC ABG pH POC ABG pCO2 POC ABG pO2 Sodium Potassium 5.6 H Chloride Carbon Dioxide 19 L BUN Creatinine 1.6 H Glucose 329 H POC Glucose 328 H Lactic Acid Calcium 7.3 L Phosphorus Total Bilirubin AST ALT Total Creatine Kinase CK-MB (CK-2) Troponin T 1.130 H* D Total Protein Albumin HDL Cholesterol Salicylates Acetaminophen Crossmatch 10/11/18 10/11/18 10/11/18 05:10 05:32 05:58 WBC RBC Hgb Hct MCV RDW Plt Count Lymph % (Auto) [place] % (Auto) [place] # Seg Neutrophils % Seg Neuts % (Manual) Lymphocytes % (Manual) Monocytes % (Manual) Seg Neutrophils # Seg Neutrophils # Man Lymphocytes # (Manual) Monocytes # (Manual) APTT Heparin Anti-Xa Level POC ABG pH 7.259 L POC ABG pCO2 45.6 H POC ABG pO2 Sodium Potassium Chloride 108.6 H Carbon Dioxide 20 L BUN Creatinine 1.8 H Glucose 269 H POC Glucose 273 H Lactic Acid Calcium 7.0 L Phosphorus Total Bilirubin AST ALT Total Creatine Kinase CK-MB (CK-2) Troponin T Total Protein Albumin HDL Cholesterol Salicylates Acetaminophen Crossmatch 10/11/18 10/11/18 10/11/18 05:58 06:39 07:00 WBC RBC Hgb Hct MCV RDW Plt Count Lymph % (Auto) [place] % (Auto) [place] # Seg Neutrophils % Seg Neuts % (Manual) Lymphocytes % (Manual) Monocytes % (Manual) Seg Neutrophils # Seg Neutrophils # Man Lymphocytes # (Manual) Monocytes # (Manual) APTT Heparin Anti-Xa Level POC ABG pH POC ABG pCO2 POC ABG pO2 Sodium Potassium Chloride Carbon Dioxide BUN Creatinine Glucose POC Glucose 247 H Lactic Acid 3.20 H* 3.30 H* Calcium Phosphorus Total Bilirubin AST ALT Total Creatine Kinase CK-MB (CK-2) Troponin T Total Protein Albumin HDL Cholesterol Salicylates Acetaminophen Crossmatch 10/11/18 10/11/18 10/11/18 07:00 07:30 07:36 WBC RBC Hgb Hct MCV RDW Plt Count Lymph % (Auto) [place] % (Auto) [place] # Seg Neutrophils % Seg Neuts % (Manual) Lymphocytes % (Manual) Monocytes % (Manual) Seg Neutrophils # Seg Neutrophils # Man Lymphocytes # (Manual) Monocytes # (Manual) APTT Heparin Anti-Xa Level POC ABG pH POC ABG pCO2 POC ABG pO2 Sodium 146 H Potassium Chloride 112.1 H Carbon Dioxide 21 L BUN Creatinine 1.6 H Glucose 218 H POC Glucose Lactic Acid 3.20 H* Calcium 7.0 L Phosphorus Total Bilirubin AST ALT Total Creatine Kinase CK-MB (CK-2) Troponin T 1.020 H* Total Protein Albumin HDL Cholesterol Salicylates Acetaminophen Crossmatch 10/11/18 10/11/18 10/11/18 07:43 08:29 08:29 WBC RBC Hgb 16.2 H Hct 49.9 H D MCV RDW Plt Count Lymph % (Auto) [place] % (Auto) [place] # Seg Neutrophils % Seg Neuts % (Manual) Lymphocytes % (Manual) Monocytes % (Manual) Seg Neutrophils # Seg Neutrophils # Man Lymphocytes # (Manual) Monocytes # (Manual) APTT Heparin Anti-Xa Level POC ABG pH POC ABG pCO2 POC ABG pO2 Sodium Potassium Chloride Carbon Dioxide BUN Creatinine Glucose POC Glucose 174 H Lactic Acid 3.90 H* Calcium Phosphorus Total Bilirubin AST ALT Total Creatine Kinase CK-MB (CK-2) Troponin T Total Protein Albumin HDL Cholesterol Salicylates Acetaminophen Crossmatch 10/11/18 10/11/18 10/11/18 08:29 08:42 11:05 WBC RBC Hgb Hct MCV RDW Plt Count Lymph % (Auto) [place] % (Auto) [place] # Seg Neutrophils % Seg Neuts % (Manual) Lymphocytes % (Manual) Monocytes % (Manual) Seg Neutrophils # Seg Neutrophils # Man Lymphocytes # (Manual) Monocytes # (Manual) APTT 24.1 L Heparin Anti-Xa Level POC ABG pH POC ABG pCO2 POC ABG pO2 Sodium 147 H Potassium Chloride 113.3 H Carbon Dioxide 21 L BUN Creatinine 1.7 H Glucose 119 H POC Glucose 164 H Lactic Acid Calcium 7.7 L Phosphorus Total Bilirubin AST ALT Total Creatine Kinase CK-MB (CK-2) Troponin T Total Protein Albumin HDL Cholesterol Salicylates Acetaminophen Crossmatch 10/11/18 10/11/18 10/11/18 11:05 11:06 12:30 WBC RBC Hgb Hct MCV RDW Plt Count Lymph % (Auto) [place] % (Auto) [place] # Seg Neutrophils % Seg Neuts % (Manual) Lymphocytes % (Manual) Monocytes % (Manual) Seg Neutrophils # Seg Neutrophils # Man Lymphocytes # (Manual) Monocytes # (Manual) APTT Heparin Anti-Xa Level POC ABG pH POC ABG pCO2 POC ABG pO2 Sodium 148 H Potassium Chloride 113.4 H Carbon Dioxide 21 L BUN Creatinine 1.6 H Glucose 119 H POC Glucose 116 H Lactic Acid 3.20 H* Calcium 7.5 L Phosphorus Total Bilirubin AST ALT Total Creatine Kinase CK-MB (CK-2) Troponin T Total Protein Albumin HDL Cholesterol Salicylates Acetaminophen Crossmatch 10/11/18 10/11/18 10/11/18 12:30 13:16 13:25 WBC RBC Hgb Hct MCV RDW Plt Count Lymph % (Auto) [place] % (Auto) [place] # Seg Neutrophils % Seg Neuts % (Manual) Lymphocytes % (Manual) Monocytes % (Manual) Seg Neutrophils # Seg Neutrophils # Man Lymphocytes # (Manual) Monocytes # (Manual) APTT Heparin Anti-Xa Level POC ABG pH 7.247 L POC ABG pCO2 48.4 H POC ABG pO2 Sodium Potassium Chloride Carbon Dioxide BUN Creatinine Glucose POC Glucose 112 H Lactic Acid 2.70 H* Calcium Phosphorus Total Bilirubin AST ALT Total Creatine Kinase CK-MB (CK-2) Troponin T Total Protein Albumin HDL Cholesterol Salicylates Acetaminophen Crossmatch 10/11/18 10/11/18 10/11/18 14:41 15:27 16:13 WBC RBC Hgb Hct MCV RDW Plt Count Lymph % (Auto) [place] % (Auto) [place] # Seg Neutrophils % Seg Neuts % (Manual) Lymphocytes % (Manual) Monocytes % (Manual) Seg Neutrophils # Seg Neutrophils # Man Lymphocytes # (Manual) Monocytes # (Manual) APTT Heparin Anti-Xa Level POC ABG pH POC ABG pCO2 POC ABG pO2 Sodium Potassium Chloride Carbon Dioxide BUN Creatinine Glucose POC Glucose 127 H 141 H 134 H Lactic Acid Calcium Phosphorus Total Bilirubin AST ALT Total Creatine Kinase CK-MB (CK-2) Troponin T Total Protein Albumin HDL Cholesterol Salicylates Acetaminophen Crossmatch 10/11/18 10/11/18 10/11/18 17:18 18:23 19:38 WBC RBC Hgb Hct MCV RDW Plt Count Lymph % (Auto) [place] % (Auto) [place] # Seg Neutrophils % Seg Neuts % (Manual) Lymphocytes % (Manual) Monocytes % (Manual) Seg Neutrophils # Seg Neutrophils # Man Lymphocytes # (Manual) Monocytes # (Manual) APTT Heparin Anti-Xa Level POC ABG pH POC ABG pCO2 POC ABG pO2 Sodium 148 H Potassium Chloride 112.7 H Carbon Dioxide BUN 23 H Creatinine Glucose 143 H POC Glucose 132 H 129 H Lactic Acid Calcium 7.9 L Phosphorus Total Bilirubin AST ALT Total Creatine Kinase CK-MB (CK-2) Troponin T Total Protein Albumin HDL Cholesterol Salicylates Acetaminophen Crossmatch 10/11/18 10/11/18 10/11/18 20:19 20:36 21:01 WBC RBC Hgb Hct MCV RDW Plt Count Lymph % (Auto) [place] % (Auto) [place] # Seg Neutrophils % Seg Neuts % (Manual) Lymphocytes % (Manual) Monocytes % (Manual) Seg Neutrophils # Seg Neutrophils # Man Lymphocytes # (Manual) Monocytes # (Manual) APTT Heparin Anti-Xa Level POC ABG pH 7.281 L POC ABG pCO2 POC ABG pO2 Sodium Potassium Chloride Carbon Dioxide BUN Creatinine Glucose POC Glucose 129 H 151 H Lactic Acid Calcium Phosphorus Total Bilirubin AST ALT Total Creatine Kinase CK-MB (CK-2) Troponin T Total Protein Albumin HDL Cholesterol Salicylates Acetaminophen Crossmatch 10/11/18 10/11/18 10/12/18 22:04 23:15 01:18 WBC RBC Hgb Hct MCV RDW Plt Count Lymph % (Auto) [place] % (Auto) [place] # Seg Neutrophils % Seg Neuts % (Manual) Lymphocytes % (Manual) Monocytes % (Manual) Seg Neutrophils # Seg Neutrophils # Man Lymphocytes # (Manual) Monocytes # (Manual) APTT Heparin Anti-Xa Level POC ABG pH POC ABG pCO2 POC ABG pO2 Sodium Potassium Chloride Carbon Dioxide BUN Creatinine Glucose POC Glucose 147 H 143 H 158 H Lactic Acid Calcium Phosphorus Total Bilirubin AST ALT Total Creatine Kinase CK-MB (CK-2) Troponin T Total Protein Albumin HDL Cholesterol Salicylates Acetaminophen Crossmatch 10/12/18 10/12/18 10/12/18 02:13 03:18 04:04 WBC RBC Hgb Hct MCV RDW Plt Count Lymph % (Auto) [place] % (Auto) [place] # Seg Neutrophils % Seg Neuts % (Manual) Lymphocytes % (Manual) Monocytes % (Manual) Seg Neutrophils # Seg Neutrophils # Man Lymphocytes # (Manual) Monocytes # (Manual) APTT Heparin Anti-Xa Level POC ABG pH POC ABG pCO2 POC ABG pO2 Sodium 147 H Potassium Chloride 111.1 H Carbon Dioxide BUN 30 H Creatinine 2.0 H Glucose 154 H POC Glucose 148 H 142 H Lactic Acid Calcium 8.1 L Phosphorus Total Bilirubin AST 269 H ALT 204 H Total Creatine Kinase 3647 H CK-MB (CK-2) 48.3 H Troponin T 2.230 H* D Total Protein 5.8 L Albumin 2.6 L HDL Cholesterol Salicylates Acetaminophen Crossmatch 10/12/18 10/12/18 10/12/18 04:04 04:08 04:19 WBC 24.4 H RBC Hgb Hct MCV RDW Plt Count Lymph % (Auto) [place] % (Auto) [place] # Seg Neutrophils % Seg Neuts % (Manual) 32.0 L Lymphocytes % (Manual) Monocytes % (Manual) 8.0 H Seg Neutrophils # Seg Neutrophils # Man 7.8 H Lymphocytes # (Manual) Monocytes # (Manual) 2.0 H APTT Heparin Anti-Xa Level POC ABG pH 7.317 L POC ABG pCO2 49.3 H POC ABG pO2 Sodium Potassium Chloride Carbon Dioxide BUN Creatinine Glucose POC Glucose 143 H Lactic Acid Calcium Phosphorus Total Bilirubin AST ALT Total Creatine Kinase CK-MB (CK-2) Troponin T Total Protein Albumin HDL Cholesterol Salicylates Acetaminophen Crossmatch 10/12/18 10/12/18 10/12/18 05:29 06:52 08:09 WBC RBC Hgb Hct MCV RDW Plt Count Lymph % (Auto) [place] % (Auto) [place] # Seg Neutrophils % Seg Neuts % (Manual) Lymphocytes % (Manual) Monocytes % (Manual) Seg Neutrophils # Seg Neutrophils # Man Lymphocytes # (Manual) Monocytes # (Manual) APTT Heparin Anti-Xa Level POC ABG pH 7.322 L POC ABG pCO2 46.5 H POC ABG pO2 Sodium Potassium Chloride Carbon Dioxide BUN Creatinine Glucose POC Glucose 196 H 226 H Lactic Acid Calcium Phosphorus Total Bilirubin AST ALT Total Creatine Kinase CK-MB (CK-2) Troponin T Total Protein Albumin HDL Cholesterol Salicylates Acetaminophen Crossmatch 10/12/18 10/12/18 10/12/18 08:38 10:03 15:50 WBC RBC Hgb Hct MCV RDW Plt Count Lymph % (Auto) [place] % (Auto) [place] # Seg Neutrophils % Seg Neuts % (Manual) Lymphocytes % (Manual) Monocytes % (Manual) Seg Neutrophils # Seg Neutrophils # Man Lymphocytes # (Manual) Monocytes # (Manual) APTT Heparin Anti-Xa Level POC ABG pH POC ABG pCO2 POC ABG pO2 Sodium Potassium Chloride Carbon Dioxide BUN Creatinine Glucose POC Glucose 138 H 148 H 221 H Lactic Acid Calcium Phosphorus Total Bilirubin AST ALT Total Creatine Kinase CK-MB (CK-2) Troponin T Total Protein Albumin HDL Cholesterol Salicylates Acetaminophen Crossmatch 10/12/18 10/12/18 10/12/18 18:39 20:56 21:34 WBC RBC Hgb Hct MCV RDW Plt Count Lymph % (Auto) [place] % (Auto) [place] # Seg Neutrophils % Seg Neuts % (Manual) Lymphocytes % (Manual) Monocytes % (Manual) Seg Neutrophils # Seg Neutrophils # Man Lymphocytes # (Manual) Monocytes # (Manual) APTT Heparin Anti-Xa Level POC ABG pH 7.336 L POC ABG pCO2 46.0 H POC ABG pO2 Sodium Potassium Chloride Carbon Dioxide BUN Creatinine Glucose POC Glucose 255 H 260 H Lactic Acid Calcium Phosphorus Total Bilirubin AST ALT Total Creatine Kinase CK-MB (CK-2) Troponin T Total Protein Albumin HDL Cholesterol Salicylates Acetaminophen Crossmatch 10/13/18 10/13/18 10/13/18 02:29 05:09 05:40 WBC 17.0 H RBC Hgb Hct MCV RDW Plt Count Lymph % (Auto) [place] % (Auto) 9.2 H [place] # 1.6 H Seg Neutrophils % 76.2 H Seg Neuts % (Manual) Lymphocytes % (Manual) Monocytes % (Manual) Seg Neutrophils # 12.9 H Seg Neutrophils # Man Lymphocytes # (Manual) Monocytes # (Manual) APTT Heparin Anti-Xa Level POC ABG pH POC ABG pCO2 POC ABG pO2 Sodium Potassium Chloride Carbon Dioxide BUN Creatinine Glucose POC Glucose 216 H 249 H Lactic Acid Calcium Phosphorus Total Bilirubin AST ALT Total Creatine Kinase CK-MB (CK-2) Troponin T Total Protein Albumin HDL Cholesterol Salicylates Acetaminophen Crossmatch 10/13/18 10/13/18 10/13/18 05:40 05:40 09:46 WBC RBC Hgb Hct MCV RDW Plt Count Lymph % (Auto) [place] % (Auto) [place] # Seg Neutrophils % Seg Neuts % (Manual) Lymphocytes % (Manual) Monocytes % (Manual) Seg Neutrophils # Seg Neutrophils # Man Lymphocytes # (Manual) Monocytes # (Manual) APTT Heparin Anti-Xa Level POC ABG pH POC ABG pCO2 POC ABG pO2 Sodium 146 H Potassium Chloride 109.8 H Carbon Dioxide BUN 35 H Creatinine Glucose 245 H POC Glucose 235 H Lactic Acid Calcium 7.9 L Phosphorus Total Bilirubin AST ALT Total Creatine Kinase CK-MB (CK-2) Troponin T 0.952 H* D Total Protein Albumin HDL Cholesterol Salicylates Acetaminophen Crossmatch 10/13/18 10/13/18 10/13/18 13:58 16:15 17:30 WBC RBC Hgb Hct MCV RDW Plt Count Lymph % (Auto) [place] % (Auto) [place] # Seg Neutrophils % Seg Neuts % (Manual) Lymphocytes % (Manual) Monocytes % (Manual) Seg Neutrophils # Seg Neutrophils # Man Lymphocytes # (Manual) Monocytes # (Manual) APTT Heparin Anti-Xa Level POC ABG pH POC ABG pCO2 51.2 H POC ABG pO2 Sodium Potassium Chloride Carbon Dioxide BUN Creatinine Glucose POC Glucose 139 H Lactic Acid Calcium Phosphorus Total Bilirubin AST ALT Total Creatine Kinase CK-MB (CK-2) Troponin T 0.816 H* Total Protein Albumin HDL Cholesterol Salicylates Acetaminophen Crossmatch 10/13/18 10/14/18 10/14/18 21:25 01:49 04:52 WBC RBC Hgb Hct MCV RDW Plt Count Lymph % (Auto) [place] % (Auto) [place] # Seg Neutrophils % Seg Neuts % (Manual) Lymphocytes % (Manual) Monocytes % (Manual) Seg Neutrophils # Seg Neutrophils # Man Lymphocytes # (Manual) Monocytes # (Manual) APTT Heparin Anti-Xa Level POC ABG pH POC ABG pCO2 56.0 H POC ABG pO2 Sodium Potassium Chloride Carbon Dioxide BUN Creatinine Glucose POC Glucose 205 H 166 H Lactic Acid Calcium Phosphorus Total Bilirubin AST ALT Total Creatine Kinase CK-MB (CK-2) Troponin T Total Protein Albumin HDL Cholesterol Salicylates Acetaminophen Crossmatch 10/14/18 10/14/18 10/14/18 05:32 09:45 09:45 WBC RBC Hgb 11.4 L Hct 34.5 L MCV RDW Plt Count 139 L Lymph % (Auto) [place] % (Auto) [place] # Seg Neutrophils % Seg Neuts % (Manual) Lymphocytes % (Manual) Monocytes % (Manual) Seg Neutrophils # Seg Neutrophils # Man Lymphocytes # (Manual) Monocytes # (Manual) APTT Heparin Anti-Xa Level POC ABG pH POC ABG pCO2 POC ABG pO2 Sodium 148 H Potassium Chloride 107.3 H Carbon Dioxide 34 H D BUN Creatinine 0.7 L D Glucose 191 H POC Glucose 164 H Lactic Acid Calcium 7.3 L Phosphorus Total Bilirubin AST 110 H ALT 91 H Total Creatine Kinase CK-MB (CK-2) Troponin T Total Protein 4.9 L Albumin 2.0 L HDL Cholesterol Salicylates Acetaminophen Crossmatch 10/14/18 10/14/18 10/14/18 10:54 12:20 18:30 WBC RBC Hgb Hct MCV RDW Plt Count Lymph % (Auto) [place] % (Auto) [place] # Seg Neutrophils % Seg Neuts % (Manual) Lymphocytes % (Manual) Monocytes % (Manual) Seg Neutrophils # Seg Neutrophils # Man Lymphocytes # (Manual) Monocytes # (Manual) APTT Heparin Anti-Xa Level POC ABG pH POC ABG pCO2 POC ABG pO2 Sodium Potassium Chloride Carbon Dioxide BUN Creatinine Glucose POC Glucose 173 H 158 H 108 H Lactic Acid Calcium Phosphorus Total Bilirubin AST ALT Total Creatine Kinase CK-MB (CK-2) Troponin T Total Protein Albumin HDL Cholesterol Salicylates Acetaminophen Crossmatch 10/14/18 10/15/18 10/15/18 21:54 02:12 04:19 WBC RBC Hgb Hct MCV RDW Plt Count Lymph % (Auto) [place] % (Auto) [place] # Seg Neutrophils % Seg Neuts % (Manual) Lymphocytes % (Manual) Monocytes % (Manual) Seg Neutrophils # Seg Neutrophils # Man Lymphocytes # (Manual) Monocytes # (Manual) APTT Heparin Anti-Xa Level POC ABG pH 7.491 H POC ABG pCO2 45.1 H POC ABG pO2 Sodium Potassium Chloride Carbon Dioxide BUN Creatinine Glucose POC Glucose 110 H 164 H Lactic Acid Calcium Phosphorus Total Bilirubin AST ALT Total Creatine Kinase CK-MB (CK-2) Troponin T Total Protein Albumin HDL Cholesterol Salicylates Acetaminophen Crossmatch 10/15/18 10/15/18 10/15/18 04:55 05:43 06:20 WBC RBC Hgb 11.7 L Hct 34.7 L MCV RDW Plt Count Lymph % (Auto) [place] % (Auto) [place] # Seg Neutrophils % Seg Neuts % (Manual) Lymphocytes % (Manual) Monocytes % (Manual) Seg Neutrophils # Seg Neutrophils # Man Lymphocytes # (Manual) Monocytes # (Manual) APTT Heparin Anti-Xa Level POC ABG pH POC ABG pCO2 47.3 H POC ABG pO2 78 L Sodium Potassium Chloride Carbon Dioxide BUN Creatinine Glucose POC Glucose 250 H Lactic Acid Calcium Phosphorus Total Bilirubin AST ALT Total Creatine Kinase CK-MB (CK-2) Troponin T Total Protein Albumin HDL Cholesterol Salicylates Acetaminophen Crossmatch 10/15/18 10/15/18 10/15/18 12:00 12:00 12:11 WBC RBC Hgb 11.5 L Hct 34.0 L MCV RDW Plt Count Lymph % (Auto) [place] % (Auto) [place] # Seg Neutrophils % Seg Neuts % (Manual) Lymphocytes % (Manual) Monocytes % (Manual) Seg Neutrophils # Seg Neutrophils # Man Lymphocytes # (Manual) Monocytes # (Manual) APTT Heparin Anti-Xa Level POC ABG pH POC ABG pCO2 POC ABG pO2 Sodium 147 H Potassium Chloride 108.5 H Carbon Dioxide BUN Creatinine 0.7 L Glucose 209 H POC Glucose 197 H Lactic Acid Calcium 7.3 L Phosphorus Total Bilirubin AST ALT Total Creatine Kinase CK-MB (CK-2) Troponin T Total Protein Albumin HDL Cholesterol Salicylates Acetaminophen Crossmatch 10/15/18 10/15/18 10/15/18 15:48 18:34 21:29 WBC RBC Hgb Hct MCV RDW Plt Count Lymph % (Auto) [place] % (Auto) [place] # Seg Neutrophils % Seg Neuts % (Manual) Lymphocytes % (Manual) Monocytes % (Manual) Seg Neutrophils # Seg Neutrophils # Man Lymphocytes # (Manual) Monocytes # (Manual) APTT Heparin Anti-Xa Level POC ABG pH POC ABG pCO2 POC ABG pO2 Sodium Potassium Chloride Carbon Dioxide BUN Creatinine Glucose POC Glucose 220 H 249 H 209 H Lactic Acid Calcium Phosphorus Total Bilirubin AST ALT Total Creatine Kinase CK-MB (CK-2) Troponin T Total Protein Albumin HDL Cholesterol Salicylates Acetaminophen Crossmatch 10/16/18 10/16/18 10/16/18 02:16 03:50 05:57 WBC RBC Hgb Hct MCV RDW Plt Count Lymph % (Auto) [place] % (Auto) [place] # Seg Neutrophils % Seg Neuts % (Manual) Lymphocytes % (Manual) Monocytes % (Manual) Seg Neutrophils # Seg Neutrophils # Man Lymphocytes # (Manual) Monocytes # (Manual) APTT Heparin Anti-Xa Level POC ABG pH POC ABG pCO2 55.8 H POC ABG pO2 Sodium Potassium Chloride Carbon Dioxide BUN Creatinine Glucose POC Glucose 110 H 209 H Lactic Acid Calcium Phosphorus Total Bilirubin AST ALT Total Creatine Kinase CK-MB (CK-2) Troponin T Total Protein Albumin HDL Cholesterol Salicylates Acetaminophen Crossmatch 10/16/18 10/16/18 10/16/18 10:51 12:51 15:01 WBC RBC Hgb Hct MCV RDW Plt Count Lymph % (Auto) [place] % (Auto) [place] # Seg Neutrophils % Seg Neuts % (Manual) Lymphocytes % (Manual) Monocytes % (Manual) Seg Neutrophils # Seg Neutrophils # Man Lymphocytes # (Manual) Monocytes # (Manual) APTT Heparin Anti-Xa Level POC ABG pH POC ABG pCO2 48.9 H POC ABG pO2 Sodium Potassium Chloride Carbon Dioxide BUN Creatinine Glucose POC Glucose 198 H 196 H Lactic Acid Calcium Phosphorus Total Bilirubin AST ALT Total Creatine Kinase CK-MB (CK-2) Troponin T Total Protein Albumin HDL Cholesterol Salicylates Acetaminophen Crossmatch 10/16/18 10/16/18 10/17/18 17:34 21:59 02:17 WBC RBC Hgb Hct MCV RDW Plt Count Lymph % (Auto) [place] % (Auto) [place] # Seg Neutrophils % Seg Neuts % (Manual) Lymphocytes % (Manual) Monocytes % (Manual) Seg Neutrophils # Seg Neutrophils # Man Lymphocytes # (Manual) Monocytes # (Manual) APTT Heparin Anti-Xa Level POC ABG pH POC ABG pCO2 POC ABG pO2 Sodium Potassium Chloride Carbon Dioxide BUN Creatinine Glucose POC Glucose 179 H 139 H 135 H Lactic Acid Calcium Phosphorus Total Bilirubin AST ALT Total Creatine Kinase CK-MB (CK-2) Troponin T Total Protein Albumin HDL Cholesterol Salicylates Acetaminophen Crossmatch 10/17/18 10/17/18 10/17/18 05:40 05:47 10:18 WBC RBC Hgb 11.3 L Hct 33.2 L MCV RDW Plt Count Lymph % (Auto) [place] % (Auto) [place] # Seg Neutrophils % Seg Neuts % (Manual) Lymphocytes % (Manual) Monocytes % (Manual) Seg Neutrophils # Seg Neutrophils # Man Lymphocytes # (Manual) Monocytes # (Manual) APTT Heparin Anti-Xa Level POC ABG pH POC ABG pCO2 POC ABG pO2 Sodium Potassium Chloride Carbon Dioxide BUN Creatinine Glucose POC Glucose 125 H 139 H Lactic Acid Calcium Phosphorus Total Bilirubin AST ALT Total Creatine Kinase CK-MB (CK-2) Troponin T Total Protein Albumin HDL Cholesterol Salicylates Acetaminophen Crossmatch 10/17/18 10/18/18 10/18/18 23:11 08:49 11:31 WBC RBC Hgb Hct MCV RDW Plt Count Lymph % (Auto) [place] % (Auto) [place] # Seg Neutrophils % Seg Neuts % (Manual) Lymphocytes % (Manual) Monocytes % (Manual) Seg Neutrophils # Seg Neutrophils # Man Lymphocytes # (Manual) Monocytes # (Manual) APTT Heparin Anti-Xa Level POC ABG pH POC ABG pCO2 POC ABG pO2 Sodium Potassium Chloride Carbon Dioxide BUN Creatinine Glucose POC Glucose 165 H 125 H 182 H Lactic Acid Calcium Phosphorus Total Bilirubin AST ALT Total Creatine Kinase CK-MB (CK-2) Troponin T Total Protein Albumin HDL Cholesterol Salicylates Acetaminophen Crossmatch 10/18/18 10/18/18 10/19/18 16:12 21:02 00:28 WBC RBC Hgb 11.4 L Hct 33.6 L MCV RDW Plt Count Lymph % (Auto) [place] % (Auto) 14.0 H [place] # 1.2 H Seg Neutrophils % Seg Neuts % (Manual) Lymphocytes % (Manual) Monocytes % (Manual) Seg Neutrophils # Seg Neutrophils # Man Lymphocytes # (Manual) Monocytes # (Manual) APTT Heparin Anti-Xa Level POC ABG pH POC ABG pCO2 POC ABG pO2 Sodium Potassium Chloride Carbon Dioxide BUN Creatinine Glucose POC Glucose 168 H 324 H Lactic Acid Calcium Phosphorus Total Bilirubin AST ALT Total Creatine Kinase CK-MB (CK-2) Troponin T Total Protein Albumin HDL Cholesterol Salicylates Acetaminophen Crossmatch 10/19/18 10/19/18 10/19/18 04:57 04:57 07:32 WBC RBC Hgb 11.7 L Hct 34.0 L MCV RDW Plt Count Lymph % (Auto) [place] % (Auto) [place] # Seg Neutrophils % Seg Neuts % (Manual) Lymphocytes % (Manual) Monocytes % (Manual) Seg Neutrophils # Seg Neutrophils # Man Lymphocytes # (Manual) Monocytes # (Manual) APTT Heparin Anti-Xa Level POC ABG pH POC ABG pCO2 POC ABG pO2 Sodium Potassium 3.5 L Chloride 108.6 H Carbon Dioxide BUN Creatinine 0.6 L Glucose POC Glucose 159 H Lactic Acid Calcium 7.9 L Phosphorus Total Bilirubin AST ALT Total Creatine Kinase CK-MB (CK-2) Troponin T Total Protein Albumin HDL Cholesterol Salicylates Acetaminophen Crossmatch 10/19/18 10/19/18 10/20/18 16:25 20:59 12:04 WBC RBC Hgb Hct MCV RDW Plt Count Lymph % (Auto) [place] % (Auto) [place] # Seg Neutrophils % Seg Neuts % (Manual) Lymphocytes % (Manual) Monocytes % (Manual) Seg Neutrophils # Seg Neutrophils # Man Lymphocytes # (Manual) Monocytes # (Manual) APTT Heparin Anti-Xa Level POC ABG pH POC ABG pCO2 POC ABG pO2 Sodium Potassium Chloride Carbon Dioxide BUN Creatinine Glucose POC Glucose 134 H 110 H 338 H Lactic Acid Calcium Phosphorus Total Bilirubin AST ALT Total Creatine Kinase CK-MB (CK-2) Troponin T Total Protein Albumin HDL Cholesterol Salicylates Acetaminophen Crossmatch 10/20/18 10/20/18 10/21/18 17:55 22:07 04:59 WBC RBC Hgb 11.6 L Hct 33.9 L MCV RDW Plt Count Lymph % (Auto) [place] % (Auto) 9.7 H [place] # 0.9 H Seg Neutrophils % 70.7 H Seg Neuts % (Manual) Lymphocytes % (Manual) Monocytes % (Manual) Seg Neutrophils # Seg Neutrophils # Man Lymphocytes # (Manual) Monocytes # (Manual) APTT Heparin Anti-Xa Level POC ABG pH POC ABG pCO2 POC ABG pO2 Sodium Potassium Chloride Carbon Dioxide BUN Creatinine Glucose POC Glucose 146 H 164 H Lactic Acid Calcium Phosphorus Total Bilirubin AST ALT Total Creatine Kinase CK-MB (CK-2) Troponin T Total Protein Albumin HDL Cholesterol Salicylates Acetaminophen Crossmatch 10/21/18 10/21/18 10/21/18 04:59 07:52 11:39 WBC RBC Hgb Hct MCV RDW Plt Count Lymph % (Auto) [place] % (Auto) [place] # Seg Neutrophils % Seg Neuts % (Manual) Lymphocytes % (Manual) Monocytes % (Manual) Seg Neutrophils # Seg Neutrophils # Man Lymphocytes # (Manual) Monocytes # (Manual) APTT Heparin Anti-Xa Level POC ABG pH POC ABG pCO2 POC ABG pO2 Sodium Potassium 3.5 L Chloride 107.1 H Carbon Dioxide BUN Creatinine 0.5 L Glucose 158 H POC Glucose 142 H 194 H Lactic Acid Calcium 7.5 L Phosphorus Total Bilirubin AST ALT Total Creatine Kinase CK-MB (CK-2) Troponin T Total Protein 5.6 L Albumin 2.0 L HDL Cholesterol Salicylates Acetaminophen Crossmatch 10/21/18 10/21/18 10/22/18 17:05 20:37 05:38 WBC RBC 3.48 L Hgb 10.8 L Hct 31.7 L MCV RDW Plt Count 458 H Lymph % (Auto) [place] % (Auto) 10.5 H [place] # Seg Neutrophils % Seg Neuts % (Manual) Lymphocytes % (Manual) Monocytes % (Manual) Seg Neutrophils # Seg Neutrophils # Man Lymphocytes # (Manual) Monocytes # (Manual) APTT Heparin Anti-Xa Level POC ABG pH POC ABG pCO2 POC ABG pO2 Sodium Potassium Chloride Carbon Dioxide BUN Creatinine Glucose POC Glucose 167 H 182 H Lactic Acid Calcium Phosphorus Total Bilirubin AST ALT Total Creatine Kinase CK-MB (CK-2) Troponin T Total Protein Albumin HDL Cholesterol Salicylates Acetaminophen Crossmatch 10/22/18 10/22/18 10/22/18 05:38 07:48 12:08 WBC RBC Hgb Hct MCV RDW Plt Count Lymph % (Auto) [place] % (Auto) [place] # Seg Neutrophils % Seg Neuts % (Manual) Lymphocytes % (Manual) Monocytes % (Manual) Seg Neutrophils # Seg Neutrophils # Man Lymphocytes # (Manual) Monocytes # (Manual) APTT Heparin Anti-Xa Level POC ABG pH POC ABG pCO2 POC ABG pO2 Sodium Potassium Chloride Carbon Dioxide BUN Creatinine 0.5 L Glucose 146 H POC Glucose 130 H 167 H Lactic Acid Calcium 7.8 L Phosphorus Total Bilirubin AST 41 H ALT Total Creatine Kinase CK-MB (CK-2) Troponin T Total Protein 5.5 L Albumin 2.1 L HDL Cholesterol Salicylates Acetaminophen Crossmatch 10/22/18 10/22/18 10/23/18 16:45 21:42 04:38 WBC RBC Hgb 11.7 L Hct 34.7 L MCV RDW Plt Count 523 H Lymph % (Auto) [place] % (Auto) 8.7 H [place] # Seg Neutrophils % 71.6 H Seg Neuts % (Manual) Lymphocytes % (Manual) Monocytes % (Manual) Seg Neutrophils # Seg Neutrophils # Man Lymphocytes # (Manual) Monocytes # (Manual) APTT Heparin Anti-Xa Level POC ABG pH POC ABG pCO2 POC ABG pO2 Sodium Potassium Chloride Carbon Dioxide BUN Creatinine Glucose POC Glucose 113 H 134 H Lactic Acid Calcium Phosphorus Total Bilirubin AST ALT Total Creatine Kinase CK-MB (CK-2) Troponin T Total Protein Albumin HDL Cholesterol Salicylates Acetaminophen Crossmatch 10/23/18 10/23/18 10/23/18 04:38 07:56 11:15 WBC RBC Hgb Hct MCV RDW Plt Count Lymph % (Auto) [place] % (Auto) [place] # Seg Neutrophils % Seg Neuts % (Manual) Lymphocytes % (Manual) Monocytes % (Manual) Seg Neutrophils # Seg Neutrophils # Man Lymphocytes # (Manual) Monocytes # (Manual) APTT Heparin Anti-Xa Level POC ABG pH POC ABG pCO2 POC ABG pO2 Sodium Potassium Chloride Carbon Dioxide BUN 7 L Creatinine 0.5 L Glucose 150 H POC Glucose 123 H 212 H Lactic Acid Calcium 8.0 L Phosphorus Total Bilirubin AST 55 H ALT Total Creatine Kinase CK-MB (CK-2) Troponin T Total Protein 6.2 L Albumin 2.3 L HDL Cholesterol Salicylates Acetaminophen Crossmatch 10/23/18 10/23/18 10/24/18 16:06 22:01 05:56 WBC 11.8 H RBC 3.64 L Hgb 11.2 L Hct 33.4 L MCV RDW Plt Count 564 H Lymph % (Auto) 11.3 L [place] % (Auto) [place] # Seg Neutrophils % 80.2 H Seg Neuts % (Manual) Lymphocytes % (Manual) Monocytes % (Manual) Seg Neutrophils # 9.4 H Seg Neutrophils # Man Lymphocytes # (Manual) Monocytes # (Manual) APTT Heparin Anti-Xa Level POC ABG pH POC ABG pCO2 POC ABG pO2 Sodium Potassium Chloride Carbon Dioxide BUN Creatinine Glucose POC Glucose 152 H 235 H Lactic Acid Calcium Phosphorus Total Bilirubin AST ALT Total Creatine Kinase CK-MB (CK-2) Troponin T Total Protein Albumin HDL Cholesterol Salicylates Acetaminophen Crossmatch 10/24/18 10/24/18 10/24/18 05:56 07:52 11:58 WBC RBC Hgb Hct MCV RDW Plt Count Lymph % (Auto) [place] % (Auto) [place] # Seg Neutrophils % Seg Neuts % (Manual) Lymphocytes % (Manual) Monocytes % (Manual) Seg Neutrophils # Seg Neutrophils # Man Lymphocytes # (Manual) Monocytes # (Manual) APTT Heparin Anti-Xa Level POC ABG pH POC ABG pCO2 POC ABG pO2 Sodium Potassium Chloride Carbon Dioxide BUN Creatinine 0.5 L Glucose 175 H POC Glucose 156 H 238 H Lactic Acid Calcium 8.0 L Phosphorus Total Bilirubin AST 44 H ALT Total Creatine Kinase CK-MB (CK-2) Troponin T Total Protein 6.2 L Albumin 2.4 L HDL Cholesterol Salicylates Acetaminophen Crossmatch 10/24/18 10/24/18 10/25/18 16:20 22:13 07:53 WBC RBC Hgb Hct MCV RDW Plt Count Lymph % (Auto) [place] % (Auto) [place] # Seg Neutrophils % Seg Neuts % (Manual) Lymphocytes % (Manual) Monocytes % (Manual) Seg Neutrophils # Seg Neutrophils # Man Lymphocytes # (Manual) Monocytes # (Manual) APTT Heparin Anti-Xa Level POC ABG pH POC ABG pCO2 POC ABG pO2 Sodium Potassium Chloride Carbon Dioxide BUN Creatinine Glucose POC Glucose 60 L 261 H 211 H Lactic Acid Calcium Phosphorus Total Bilirubin AST ALT Total Creatine Kinase CK-MB (CK-2) Troponin T Total Protein Albumin HDL Cholesterol Salicylates Acetaminophen Crossmatch 10/25/18 10/25/18 10/25/18 11:03 16:02 22:45 WBC RBC Hgb Hct MCV RDW Plt Count Lymph % (Auto) [place] % (Auto) [place] # Seg Neutrophils % Seg Neuts % (Manual) Lymphocytes % (Manual) Monocytes % (Manual) Seg Neutrophils # Seg Neutrophils # Man Lymphocytes # (Manual) Monocytes # (Manual) APTT Heparin Anti-Xa Level POC ABG pH POC ABG pCO2 POC ABG pO2 Sodium Potassium Chloride Carbon Dioxide BUN Creatinine Glucose POC Glucose 137 H 186 H 140 H Lactic Acid Calcium Phosphorus Total Bilirubin AST ALT Total Creatine Kinase CK-MB (CK-2) Troponin T Total Protein Albumin HDL Cholesterol Salicylates Acetaminophen Crossmatch 10/26/18 10/26/18 10/26/18 08:13 10:08 11:28 WBC RBC Hgb Hct MCV RDW Plt Count Lymph % (Auto) [place] % (Auto) [place] # Seg Neutrophils % Seg Neuts % (Manual) Lymphocytes % (Manual) Monocytes % (Manual) Seg Neutrophils # Seg Neutrophils # Man Lymphocytes # (Manual) Monocytes # (Manual) APTT Heparin Anti-Xa Level POC ABG pH POC ABG pCO2 POC ABG pO2 Sodium Potassium Chloride Carbon Dioxide BUN Creatinine Glucose POC Glucose 144 H 110 H 201 H Lactic Acid Calcium Phosphorus Total Bilirubin AST ALT Total Creatine Kinase CK-MB (CK-2) Troponin T Total Protein Albumin HDL Cholesterol Salicylates Acetaminophen Crossmatch 10/26/18 10/26/18 10/27/18 16:36 22:29 07:34 WBC RBC Hgb Hct MCV RDW Plt Count Lymph % (Auto) [place] % (Auto) [place] # Seg Neutrophils % Seg Neuts % (Manual) Lymphocytes % (Manual) Monocytes % (Manual) Seg Neutrophils # Seg Neutrophils # Man Lymphocytes # (Manual) Monocytes # (Manual) APTT Heparin Anti-Xa Level POC ABG pH POC ABG pCO2 POC ABG pO2 Sodium Potassium Chloride Carbon Dioxide BUN Creatinine Glucose POC Glucose 147 H 302 H 182 H Lactic Acid Calcium Phosphorus Total Bilirubin AST ALT Total Creatine Kinase CK-MB (CK-2) Troponin T Total Protein Albumin HDL Cholesterol Salicylates Acetaminophen Crossmatch 10/27/18 10/27/18 10/27/18 11:57 13:33 14:55 WBC RBC Hgb Hct MCV RDW Plt Count 550 H Lymph % (Auto) [place] % (Auto) [place] # Seg Neutrophils % Seg Neuts % (Manual) Lymphocytes % (Manual) Monocytes % (Manual) Seg Neutrophils # Seg Neutrophils # Man Lymphocytes # (Manual) Monocytes # (Manual) APTT Heparin Anti-Xa Level POC ABG pH POC ABG pCO2 POC ABG pO2 Sodium Potassium Chloride Carbon Dioxide BUN Creatinine Glucose POC Glucose 209 H Lactic Acid Calcium Phosphorus Total Bilirubin AST ALT Total Creatine Kinase CK-MB (CK-2) Troponin T Total Protein Albumin HDL Cholesterol Salicylates Acetaminophen Crossmatch See Detail 10/27/18 10/27/18 10/28/18 17:09 21:45 07:45 WBC RBC Hgb Hct MCV RDW Plt Count Lymph % (Auto) [place] % (Auto) [place] # Seg Neutrophils % Seg Neuts % (Manual) Lymphocytes % (Manual) Monocytes % (Manual) Seg Neutrophils # Seg Neutrophils # Man Lymphocytes # (Manual) Monocytes # (Manual) APTT Heparin Anti-Xa Level POC ABG pH POC ABG pCO2 POC ABG pO2 Sodium Potassium Chloride Carbon Dioxide BUN Creatinine Glucose POC Glucose 233 H 136 H 201 H Lactic Acid Calcium Phosphorus Total Bilirubin AST ALT Total Creatine Kinase CK-MB (CK-2) Troponin T Total Protein Albumin HDL Cholesterol Salicylates Acetaminophen Crossmatch 10/28/18 10/28/18 10/28/18 11:17 16:34 19:51 WBC RBC Hgb Hct MCV RDW Plt Count Lymph % (Auto) [place] % (Auto) [place] # Seg Neutrophils % Seg Neuts % (Manual) Lymphocytes % (Manual) Monocytes % (Manual) Seg Neutrophils # Seg Neutrophils # Man Lymphocytes # (Manual) Monocytes # (Manual) APTT Heparin Anti-Xa Level < 0.10 L POC ABG pH POC ABG pCO2 POC ABG pO2 Sodium Potassium Chloride Carbon Dioxide BUN Creatinine Glucose POC Glucose 116 H 168 H Lactic Acid Calcium Phosphorus Total Bilirubin AST ALT Total Creatine Kinase CK-MB (CK-2) Troponin T Total Protein Albumin HDL Cholesterol Salicylates Acetaminophen Crossmatch 10/28/18 10/29/18 10/29/18 21:52 07:11 07:11 WBC RBC Hgb Hct MCV RDW Plt Count 470 H Lymph % (Auto) [place] % (Auto) [place] # Seg Neutrophils % Seg Neuts % (Manual) Lymphocytes % (Manual) Monocytes % (Manual) Seg Neutrophils # Seg Neutrophils # Man Lymphocytes # (Manual) Monocytes # (Manual) APTT Heparin Anti-Xa Level 0.13 L POC ABG pH POC ABG pCO2 POC ABG pO2 Sodium Potassium Chloride Carbon Dioxide BUN Creatinine Glucose POC Glucose 159 H Lactic Acid Calcium Phosphorus Total Bilirubin AST ALT Total Creatine Kinase CK-MB (CK-2) Troponin T Total Protein Albumin HDL Cholesterol Salicylates Acetaminophen Crossmatch 10/29/18 10/29/18 10/29/18 07:11 07:43 11:29 WBC RBC Hgb Hct MCV RDW Plt Count Lymph % (Auto) [place] % (Auto) [place] # Seg Neutrophils % Seg Neuts % (Manual) Lymphocytes % (Manual) Monocytes % (Manual) Seg Neutrophils # Seg Neutrophils # Man Lymphocytes # (Manual) Monocytes # (Manual) APTT Heparin Anti-Xa Level POC ABG pH POC ABG pCO2 POC ABG pO2 Sodium Potassium Chloride Carbon Dioxide BUN 7 L Creatinine 0.5 L Glucose 122 H POC Glucose 147 H 165 H Lactic Acid Calcium 8.2 L Phosphorus Total Bilirubin AST ALT Total Creatine Kinase CK-MB (CK-2) Troponin T Total Protein Albumin HDL Cholesterol Salicylates Acetaminophen Crossmatch
[2018-10-29] MEDS ORDERED: VERSED ONE (18:23)
[2018-10-29] MEDS ORDERED: VERSED IV ONE (18:44)
--- NOTE | 2018-10-29 18:44 | Operative Report ---
Operative Report Operative Report: Date of Procedure: 10/29/2018 Pre-operative Diagnosis: Subacute Ischemia of Bilateral Lower Extremities Post-operative Diagnosis: Same Procedure(s): 1. Left Below-Knee Amputation With Debridement of Necrotic Muscle in the Left Anterior Compartment 2. Open Retrograde Embolectomy Of Left Popliteal Artery with a 4 Claritza 3. Open Embolectomy of Right Superficial Femoral Artery with 4 Claritza 4. Open Embolectomy of Right External Iliac Artery with [id number] Claritza 5. Ultrasound-Guided Access of the Left Common Femoral Artery 6. Aortic stent graft placement with Viabahn Balloon Expandable 11 x 59 mm Stent Graft Postdilated with a 14 x 40 Balloon 7. Right Common Iliac Stent with Viabahn Balloon Expandable 8 x 59 mm Stent Graft 8. Left Common Iliac Stent with Viabahn Balloon Expandable 8 x 59 mm Stent Graft 9. Closure of Left Femoral Arteriotomy with ProGlide Closure Device 10. Radiologic Supervision and Interpretation Surgeon: Eron Payan M.D. Aircraft Detail Draftsperson: None Anesthesia: Gen. Endotracheal Anesthesia EBL: 150 mL Counts: Correct Complications: None Condition: Stable Findings: Successful embolectomy of both the left popliteal artery as well as the right SFA and external iliac artery with pulsatile flow in the popliteal artery as well as the right external iliac artery. There was excellent backbleeding from the SFA after the embolectomy. The thrombus was not well- organized and appeared white and soft despite the initial insult occurring over 2 weeks ago. Specimen: Right external iliac thrombus was sent to pathology. Indication: The patient is a 58-year-old male who was brought to the emergency department after being found down for an unknown amount of time after an overdose of IV Dilaudid. 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 A CT scan of his chest also revealed that the initial source of thrombus was his heart and that at some point his distal aorta was near totally occluded with thrombus. 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 He did survive and has significant ischemia from the embolus to his lower extremities and now requires management of his ischemic limbs as well as retained thrombus in his distal aorta. He and his family were given the risk, benefits, and alternative procedures and consented to the pr ocedure. Description of Procedure: The patient was brought into the operating room and laid in supine position. After general endotracheal anesthesia was achieved his left leg was prepped and draped in normal sterile fashion. The patient had a significant amount of ischemia to the left lower extremity however it appeared that he had enough healthy skin to salvage a below-knee amputation. The previous arteriogram revealed an embolus to the popliteal artery just above the knee so that was questionable amount of perfusion to heal the below-knee amputation however this will be his best chance to ambulating in the future. I decided to attempt a below-knee amputation using a fishmouth incision. I created this fishmouth incision approximately a hands breath below the tibial tuberosity and carried this down to the fascia using a 10 blade. I then divided the fascia and muscle using cautery. Upon entering the anterior compartment and I encountered necrotic muscle which was sharply debrided with curved Mayos however the remainder of the muscle and all the remaining compartments was healthy and viable. After dividing all the muscle I then used a periosteal elevator to elevate the periosteum of the tibia and divided it with an oscillating saw. I then used the oscillating saw to bevel the anterior surface of the tibia and used a rasp to smooth the edges. I used a double action bone cutter to divide the fibula approximately 2 cm above the level of the tibia. I then divided the remaining soft tissue and passed the specimen off. I then found the popliteal artery and dissected it free and controlled with a pair of pickups. I removed thrombus from the cut it and then passed a 4 Claritza retrograde through the popliteal artery. This easily passed up and then I inflated the Claritza balloon and put a significant amount of thrombus from the popliteal artery. After 2 passes there was no additional thrombus and there was excellent antegrade pulsatile flow. I then ligated the distal popliteal artery with a 0 silk stitch. I did this in hopes of perfusing side branches and the distal stump and giving the below-knee amputation is best chance of healing. This did improve the losing that I noted in the stump. Hemostasis within the wound was achieved with a combination of cautery, direct pressure, and suture ligation. Once hemostasis was achieved a 0 Vicryl was used as a mildly stitch to cover the tibia and then the wound was closed in 2 layers using 2-0 Vicryl in interrupted fashion to reapproximate the fascia and jordon to reapproximate the skin. The wound was then dressed with Xeroform gauze, fluffs, and ABD dressing, a loosely rolled Kerlix, and a 4 inch Oscar bandage. The patient was then placed in a knee immobilizer. The sterile field was then broken and the patient's abdomen and bilateral groins were then prepped and draped in normal sterile fashion. A longitudinal incision was then created in the right groin and carried down to the common femoral artery as well as the bifurcation using sharp dissection. The SFA and profunda were controlled with vessel loops and then the common femoral artery was controlled with vessel loop. I then used ultrasound to identify the left common femoral artery and confirmed patency. Once patency was confirmed as an 11 blade to make a small stab incision and a hemostat to dissect down to the anterior surface of the common femoral artery. A micropuncture needle was used ultrasound guidance to the anterior surface of the left common femoral artery. A 0.018 wire was advanced into the left external iliac artery and the needle was exchanged for a micropuncture sheath. The dilator and wire were removed and a 0.035 Bentson wire was advanced into the aorta. The micropuncture sheath was then exchanged for a 6 Telugu sheath. I then used the micropuncture sheath to puncture the right common femoral artery and advanced the 0.018 wire through the needle to see if I could advance the wire through the true lumen of the occluded external iliac artery. The wire actually advanced quite easily so I removed the needle and advanced the micropuncture sheath over the wire. I removed the dilator and wire and advanced to Bentson wire through the sheath and into the aorta under fluoroscopy. At this point I systemically heparinized the patient with 5000 units heparin IV. I then clamped all vessel loops to occlude flow a created in arteriotomy at the access site and passed an [id number] Claritza over the Bentson wire and made several passes through the external iliac artery until there was no further thrombus. At this point the patient developed excellent pulsatile flow through the femoral arteriotomy. I flushed the artery with heparinized saline to remove any further debris. I then passed a 4 Claritza down the SFA and retrieved a minimal amount of thrombus and then flushed it with heparinized saline. There was excellent backbleeding from the profunda artery. I then passed an 8 x 25 cm sheath over the Bentson wire into the distal aorta and performed an aortogram that revealed the area of thrombus. I advanced the 11 x 59 mm Viabahn Balloon-Expandable Stent Graft into the distal aorta and deployed it. I removed the deployment below and then postdilated the proximal portion of the stent graft with a 14 x 40 balloon. Prior to doing this I did pull back the wire that had been advanced into the aorta from the left femoral artery. On then readvanced the wire from the left femoral artery back into the aorta and easily through the stent graft. I exchanged the left femoral sheath for an 8 x 25 cm sheath. I then advanced an 8 x 59 Viabahn Balloon-Expandable Stent Graft through the right and left common femoral arteries and into the distal aorta with approximately 2 cm of overlap into the previously placed stent graft. I simultaneously deployed the stent graft and then removed the delivery balloons. An aortogram reveals both the aortic stent graft as well as the iliac stent grafts were well approximated without any evidence of endoleak. I evaluated both external iliacs which revealed no thrombus identified in the left external iliac and minimal residual thrombus in the right external iliac but not enough to require placement of a stent graft. At this point I removed the sheath and wire on the right and closed the femoral arteriotomy with 6-0 Prolene in interrupted fashion. Prior to close the arteriotomy I back bled arteries and a flush arteriotomy and completed the closure. Hemostasis within the wound was achieved with Quick Clot and the wound was closed in 3 layers using a 3-0 Vicryl running fashion to reinforce the fascia, 3-0 Vicryl in a running fashion the deep dermal layer and a 4-0 Monocryl in running fashion subcuticular and then dressed with Dermabond. The left femoral arteriotomy was then closed with ProGlide closure device and the skin was closed with a 4-0 Monocryl in interrupted fashion and dressed with Dermabond. The patient tolerated the procedure well. All sponge, needle, and instrument counts were correct. The patient was taken to the recovery area in stable condition.
--- NOTE | 2018-10-29 19:04 | Progress Note ---
Assessment and Plan Patient transfered to ICU after surgery. Patient resting on nasal canula.Patient is on 2 litres O2. O2 saturation 98%.No acute respiratory distress. Patient Undergone following procedure done by Dr. Eron Payan. 1. Left Below-Knee Amputation With Debridement of Necrotic Muscle in the Left Anterior Compartment 2. Open Retrograde Embolectomy Of Left Popliteal Artery with a 4 Claritza 3. Open Embolectomy of Right Superficial Femoral Artery with 4 Claritza 4. Open Embolectomy of Right External Iliac Artery with [id number] Claritza 5. Ultrasound-Guided Access of the Left Common Femoral Artery 6. Aortic stent graft placement with Viabahn Balloon Expandable 11 x 59 mm Stent Graft Postdilated with a 14 x 40 Balloon 7. Right Common Iliac Stent with Viabahn Balloon Expandable 8 x 59 mm Stent Graft 8. Left Common Iliac Stent with Viabahn Balloon Expandable 8 x 59 mm Stent Graft 9. Closure of Left Femoral Arteriotomy with ProGlide Closure Device I spent direct critical care time of 50 minutes examining the patient, review l abs ,Talking to the nursing staff and respiratory therapy and work out plan of treatment. - Patient Problems (1) Acute respiratory failure Current Visit: Yes Status: Acute Plan to address problem: O2 2 litres via nasal canula. Albuterol/atrovent aerosol treatments q 6 hours. Patient is on I/V heparin. Continue famotidine. (2) Acute CVA (cerebrovascular accident) Current Visit: Yes Status: Acute Plan to address problem: Management as per neurology. (3) Altered mental state Current Visit: Yes Status: Acute Qualifiers: Altered mental status type: unspecified Qualified Code(s): R41.82 - Altered mental status, unspecified Plan to address problem: Management as per primary care. (4) Atrial fibrillation Current Visit: Yes Status: Acute Plan to address problem: Management as per primary care and cardiology. Patient is on I/V heparin (5) Diabetes mellitus with hyperglycemia Current Visit: Yes Status: Acute Plan to address problem: Management as per primary care. (6) Polysubstance abuse Current Visit: Yes Status: Chronic Plan to address problem: Management as per primary care. (7) Tobacco use Current Visit: Yes Status: Chronic Plan to address problem: Counselled to stop smoking. Subjective Date of service: 10/29/18 Principal diagnosis: Ac hypercapnic hypoxemic Resp failure; Drug OD; AE-COPD; NINOSKA; Seizures Interval history: Patient transfered to ICU after surgery. Patient resting on nasal canula.Patient is on 2 litres O2. O2 saturation 98%.No acute respiratory distress. Patient Undergone following procedure done by Dr. Eron Payan. 1. Left Below-Knee Amputation With Debridement of Necrotic Muscle in the Left Anterior Compartment 2. Open Retrograde Embolectomy Of Left Popliteal Artery with a 4 Claritza 3. Open Embolectomy of Right Superficial Femoral Artery with 4 Claritza 4. Open Embolectomy of Right External Iliac Artery with [id number]-[id number] Claritza 5. Ultrasound-Guided Access of the Left Common Femoral Artery 6. Aortic stent graft placement with Viabahn Balloon Expandable 11 x 59 mm Stent Graft Postdilated with a 14 x 40 Balloon 7. Right Common Iliac Stent with Viabahn Balloon Expandable 8 x 59 mm Stent Graft 8. Left Common Iliac Stent with Viabahn Balloon Expandable 8 x 59 mm Stent Graft 9. Closure of Left Femoral Arteriotomy with ProGlide Closure Device Objective Vital Signs - 12hr 10/29/18 10/29/18 10/29/18 07:51 08:01 09:11 Temperature Pulse Rate 116 H Pulse Rate [ 57 L 60 Anterior Bilateral Throughout] Respiratory Rate Respiratory 18 20 Rate [Anterior Bilateral Throughout] Blood Pressure 106/73 O2 Sat by Pulse 93 Oximetry 10/29/18 10/29/18 10/29/18 12:15 12:35 13:30 Temperature 97.8 F 97.8 F Pulse Rate 90 90 Pulse Rate [ Anterior Bilateral Throughout] Respiratory 20 18 18 Rate Respiratory Rate [Anterior Bilateral Throughout] Blood Pressure 99/60 99/60 O2 Sat by Pulse 95 95 Oximetry Constitutional: no acute distress, asleep, other (middle aged but chronically ill looking CM; Atraumatic) Eyes: non-icteric ENT: oropharynx moist, other (mallampati 2) Neck: supple, no lymphadenopathy, no JVD Effort: normal Ascultation: Bilateral: diminished breath sounds, rhonchi Percussion: Bilateral: not dull Cardiovascular: irregular rhythm, other (No R/M) Gastrointestinal: normoactive bowel sounds, soft, non-tender, non-distended Integumentary: other (poor turgor) Extremities: no edema, other (S/P Left BKA) Neurologic: normal mental status, pupils equal and round, other (Left hemiparesis, improving) Psychiatric: mood appropriate, affect normal CBC and BMP: 10/30/18 04:22 10/30/18 04:22 ABG, PT/INR, D-dimer: ABG POC ABG pH 7.393 (7.35-7.45) 10/16/18 12:51 POC ABG pCO2 48.9 (35-45) H 10/16/18 12:51 POC ABG pO2 92 (80-105) 10/16/18 12:51 POC ABG HCO3 29.8 (22-26 mml/L) 10/16/18 12:51 POC ABG Total CO2 31 (23-27mmol/L) 10/16/18 12:51 POC ABG O2 Sat 97 10/16/18 12:51 PT/INR, D-dimer PT 13.9 Sec. (12.2-14.9) 10/29/18 07:11 INR 1.01 (0.87-1.13) 10/29/18 07:11 Abnormal lab findings: Abnormal Labs 10/11/18 10/11/18 10/11/18 00:16 00:16 00:16 WBC 20.1 H RBC Hgb Hct MCV 98 H RDW 15.4 H Plt Count Lymph % (Auto) [place] % (Auto) [place] # Seg Neutrophils % Seg Neuts % (Manual) Lymphocytes % (Manual) 5.0 L Monocytes % (Manual) 25.0 H Seg Neutrophils # Seg Neutrophils # Man 9.2 H Lymphocytes # (Manual) 1.0 L Monocytes # (Manual) 5.0 H APTT Heparin Anti-Xa Level POC ABG pH POC ABG pCO2 POC ABG pO2 Sodium Potassium 5.8 H Chloride Carbon Dioxide 17 L BUN Creatinine 2.2 H Glucose 348 H POC Glucose Lactic Acid 13.70 H* Calcium 7.7 L Phosphorus Total Bilirubin 1.50 H AST 179 H ALT 110 H Total Creatine Kinase 324 H CK-MB (CK-2) Troponin T 0.257 H* Total Protein 5.9 L Albumin 2.9 L HDL Cholesterol 19 L Salicylates Acetaminophen Crossmatch 10/11/18 10/11/18 10/11/18 00:16 00:16 01:21 WBC RBC Hgb Hct MCV RDW Plt Count Lymph % (Auto) [place] % (Auto) [place] # Seg Neutrophils % Seg Neuts % (Manual) Lymphocytes % (Manual) Monocytes % (Manual) Seg Neutrophils # Seg Neutrophils # Man Lymphocytes # (Manual) Monocytes # (Manual) APTT Heparin Anti-Xa Level POC ABG pH 7.110 L POC ABG pCO2 50.3 H POC ABG pO2 65 L Sodium Potassium Chloride Carbon Dioxide BUN Creatinine Glucose POC Glucose Lactic Acid Calcium Phosphorus Total Bilirubin AST ALT Total Creatine Kinase CK-MB (CK-2) Troponin T Total Protein Albumin HDL Cholesterol Salicylates < 0.3 L Acetaminophen < 5.0 L Crossmatch 10/11/18 10/11/18 10/11/18 01:22 03:27 04:14 WBC RBC Hgb Hct MCV RDW Plt Count Lymph % (Auto) [place] % (Auto) [place] # Seg Neutrophils % Seg Neuts % (Manual) Lymphocytes % (Manual) Monocytes % (Manual) Seg Neutrophils # Seg Neutrophils # Man Lymphocytes # (Manual) Monocytes # (Manual) APTT Heparin Anti-Xa Level POC ABG pH POC ABG pCO2 POC ABG pO2 Sodium Potassium Chloride Carbon Dioxide BUN Creatinine Glucose POC Glucose Lactic Acid 8.50 H* 4.10 H* Calcium Phosphorus 4.90 H Total Bilirubin AST ALT Total Creatine Kinase CK-MB (CK-2) Troponin T Total Protein Albumin HDL Cholesterol Salicylates Acetaminophen Crossmatch 10/11/18 10/11/18 10/11/18 04:14 04:14 04:14 WBC RBC Hgb Hct MCV RDW Plt Count Lymph % (Auto) [place] % (Auto) [place] # Seg Neutrophils % Seg Neuts % (Manual) Lymphocytes % (Manual) Monocytes % (Manual) Seg Neutrophils # Seg Neutrophils # Man Lymphocytes # (Manual) Monocytes # (Manual) APTT Heparin Anti-Xa Level POC ABG pH POC ABG pCO2 POC ABG pO2 Sodium Potassium 5.6 H Chloride Carbon Dioxide 19 L BUN Creatinine 1.6 H Glucose 329 H POC Glucose 328 H Lactic Acid Calcium 7.3 L Phosphorus Total Bilirubin AST ALT Total Creatine Kinase CK-MB (CK-2) Troponin T 1.130 H* D Total Protein Albumin HDL Cholesterol Salicylates Acetaminophen Crossmatch 10/11/18 10/11/18 10/11/18 05:10 05:32 05:58 WBC RBC Hgb Hct MCV RDW Plt Count Lymph % (Auto) [place] % (Auto) [place] # Seg Neutrophils % Seg Neuts % (Manual) Lymphocytes % (Manual) Monocytes % (Manual) Seg Neutrophils # Seg Neutrophils # Man Lymphocytes # (Manual) Monocytes # (Manual) APTT Heparin Anti-Xa Level POC ABG pH 7.259 L POC ABG pCO2 45.6 H POC ABG pO2 Sodium Potassium Chloride 108.6 H Carbon Dioxide 20 L BUN Creatinine 1.8 H Glucose 269 H POC Glucose 273 H Lactic Acid Calcium 7.0 L Phosphorus Total Bilirubin AST ALT Total Creatine Kinase CK-MB (CK-2) Troponin T Total Protein Albumin HDL Cholesterol Salicylates Acetaminophen Crossmatch 10/11/18 10/11/18 10/11/18 05:58 06:39 07:00 WBC RBC Hgb Hct MCV RDW Plt Count Lymph % (Auto) [place] % (Auto) [place] # Seg Neutrophils % Seg Neuts % (Manual) Lymphocytes % (Manual) Monocytes % (Manual) Seg Neutrophils # Seg Neutrophils # Man Lymphocytes # (Manual) Monocytes # (Manual) APTT Heparin Anti-Xa Level POC ABG pH POC ABG pCO2 POC ABG pO2 Sodium Potassium Chloride Carbon Dioxide BUN Creatinine Glucose POC Glucose 247 H Lactic Acid 3.20 H* 3.30 H* Calcium Phosphorus Total Bilirubin AST ALT Total Creatine Kinase CK-MB (CK-2) Troponin T Total Protein Albumin HDL Cholesterol Salicylates Acetaminophen Crossmatch 10/11/18 10/11/18 10/11/18 07:00 07:30 07:36 WBC RBC Hgb Hct MCV RDW Plt Count Lymph % (Auto) [place] % (Auto) [place] # Seg Neutrophils % Seg Neuts % (Manual) Lymphocytes % (Manual) Monocytes % (Manual) Seg Neutrophils # Seg Neutrophils # Man Lymphocytes # (Manual) Monocytes # (Manual) APTT Heparin Anti-Xa Level POC ABG pH POC ABG pCO2 POC ABG pO2 Sodium 146 H Potassium Chloride 112.1 H Carbon Dioxide 21 L BUN Creatinine 1.6 H Glucose 218 H POC Glucose Lactic Acid 3.20 H* Calcium 7.0 L Phosphorus Total Bilirubin AST ALT Total Creatine Kinase CK-MB (CK-2) Troponin T 1.020 H* Total Protein Albumin HDL Cholesterol Salicylates Acetaminophen Crossmatch 10/11/18 10/11/18 10/11/18 07:43 08:29 08:29 WBC RBC Hgb 16.2 H Hct 49.9 H D MCV RDW Plt Count Lymph % (Auto) [place] % (Auto) [place] # Seg Neutrophils % Seg Neuts % (Manual) Lymphocytes % (Manual) Monocytes % (Manual) Seg Neutrophils # Seg Neutrophils # Man Lymphocytes # (Manual) Monocytes # (Manual) APTT Heparin Anti-Xa Level POC ABG pH POC ABG pCO2 POC ABG pO2 Sodium Potassium Chloride Carbon Dioxide BUN Creatinine Glucose POC Glucose 174 H Lactic Acid 3.90 H* Calcium Phosphorus Total Bilirubin AST ALT Total Creatine Kinase CK-MB (CK-2) Troponin T Total Protein Albumin HDL Cholesterol Salicylates Acetaminophen Crossmatch 10/11/18 10/11/18 10/11/18 08:29 08:42 11:05 WBC RBC Hgb Hct MCV RDW Plt Count Lymph % (Auto) [place] % (Auto) [place] # Seg Neutrophils % Seg Neuts % (Manual) Lymphocytes % (Manual) Monocytes % (Manual) Seg Neutrophils # Seg Neutrophils # Man Lymphocytes # (Manual) Monocytes # (Manual) APTT 24.1 L Heparin Anti-Xa Level POC ABG pH POC ABG pCO2 POC ABG pO2 Sodium 147 H Potassium Chloride 113.3 H Carbon Dioxide 21 L BUN Creatinine 1.7 H Glucose 119 H POC Glucose 164 H Lactic Acid Calcium 7.7 L Phosphorus Total Bilirubin AST ALT Total Creatine Kinase CK-MB (CK-2) Troponin T Total Protein Albumin HDL Cholesterol Salicylates Acetaminophen Crossmatch 10/11/18 10/11/18 10/11/18 11:05 11:06 12:30 WBC RBC Hgb Hct MCV RDW Plt Count Lymph % (Auto) [place] % (Auto) [place] # Seg Neutrophils % Seg Neuts % (Manual) Lymphocytes % (Manual) Monocytes % (Manual) Seg Neutrophils # Seg Neutrophils # Man Lymphocytes # (Manual) Monocytes # (Manual) APTT Heparin Anti-Xa Level POC ABG pH POC ABG pCO2 POC ABG pO2 Sodium 148 H Potassium Chloride 113.4 H Carbon Dioxide 21 L BUN Creatinine 1.6 H Glucose 119 H POC Glucose 116 H Lactic Acid 3.20 H* Calcium 7.5 L Phosphorus Total Bilirubin AST ALT Total Creatine Kinase CK-MB (CK-2) Troponin T Total Protein Albumin HDL Cholesterol Salicylates Acetaminophen Crossmatch 10/11/18 10/11/18 10/11/18 12:30 13:16 13:25 WBC RBC Hgb Hct MCV RDW Plt Count Lymph % (Auto) [place] % (Auto) [place] # Seg Neutrophils % Seg Neuts % (Manual) Lymphocytes % (Manual) Monocytes % (Manual) Seg Neutrophils # Seg Neutrophils # Man Lymphocytes # (Manual) Monocytes # (Manual) APTT Heparin Anti-Xa Level POC ABG pH 7.247 L POC ABG pCO2 48.4 H POC ABG pO2 Sodium Potassium Chloride Carbon Dioxide BUN Creatinine Glucose POC Glucose 112 H Lactic Acid 2.70 H* Calcium Phosphorus Total Bilirubin AST ALT Total Creatine Kinase CK-MB (CK-2) Troponin T Total Protein Albumin HDL Cholesterol Salicylates Acetaminophen Crossmatch 10/11/18 10/11/18 10/11/18 14:41 15:27 16:13 WBC RBC Hgb Hct MCV RDW Plt Count Lymph % (Auto) [place] % (Auto) [place] # Seg Neutrophils % Seg Neuts % (Manual) Lymphocytes % (Manual) Monocytes % (Manual) Seg Neutrophils # Seg Neutrophils # Man Lymphocytes # (Manual) Monocytes # (Manual) APTT Heparin Anti-Xa Level POC ABG pH POC ABG pCO2 POC ABG pO2 Sodium Potassium Chloride Carbon Dioxide BUN Creatinine Glucose POC Glucose 127 H 141 H 134 H Lactic Acid Calcium Phosphorus Total Bilirubin AST ALT Total Creatine Kinase CK-MB (CK-2) Troponin T Total Protein Albumin HDL Cholesterol Salicylates Acetaminophen Crossmatch 10/11/18 10/11/18 10/11/18 17:18 18:23 19:38 WBC RBC Hgb Hct MCV RDW Plt Count Lymph % (Auto) [place] % (Auto) [place] # Seg Neutrophils % Seg Neuts % (Manual) Lymphocytes % (Manual) Monocytes % (Manual) Seg Neutrophils # Seg Neutrophils # Man Lymphocytes # (Manual) Monocytes # (Manual) APTT Heparin Anti-Xa Level POC ABG pH POC ABG pCO2 POC ABG pO2 Sodium 148 H Potassium Chloride 112.7 H Carbon Dioxide BUN 23 H Creatinine Glucose 143 H POC Glucose 132 H 129 H Lactic Acid Calcium 7.9 L Phosphorus Total Bilirubin AST ALT Total Creatine Kinase CK-MB (CK-2) Troponin T Total Protein Albumin HDL Cholesterol Salicylates Acetaminophen Crossmatch 10/11/18 10/11/18 10/11/18 20:19 20:36 21:01 WBC RBC Hgb Hct MCV RDW Plt Count Lymph % (Auto) [place] % (Auto) [place] # Seg Neutrophils % Seg Neuts % (Manual) Lymphocytes % (Manual) Monocytes % (Manual) Seg Neutrophils # Seg Neutrophils # Man Lymphocytes # (Manual) Monocytes # (Manual) APTT Heparin Anti-Xa Level POC ABG pH 7.281 L POC ABG pCO2 POC ABG pO2 Sodium Potassium Chloride Carbon Dioxide BUN Creatinine Glucose POC Glucose 129 H 151 H Lactic Acid Calcium Phosphorus Total Bilirubin AST ALT Total Creatine Kinase CK-MB (CK-2) Troponin T Total Protein Albumin HDL Cholesterol Salicylates Acetaminophen Crossmatch 10/11/18 10/11/18 10/12/18 22:04 23:15 01:18 WBC RBC Hgb Hct MCV RDW Plt Count Lymph % (Auto) [place] % (Auto) [place] # Seg Neutrophils % Seg Neuts % (Manual) Lymphocytes % (Manual) Monocytes % (Manual) Seg Neutrophils # Seg Neutrophils # Man Lymphocytes # (Manual) Monocytes # (Manual) APTT Heparin Anti-Xa Level POC ABG pH POC ABG pCO2 POC ABG pO2 Sodium Potassium Chloride Carbon Dioxide BUN Creatinine Glucose POC Glucose 147 H 143 H 158 H Lactic Acid Calcium Phosphorus Total Bilirubin AST ALT Total Creatine Kinase CK-MB (CK-2) Troponin T Total Protein Albumin HDL Cholesterol Salicylates Acetaminophen Crossmatch 10/12/18 10/12/18 10/12/18 02:13 03:18 04:04 WBC RBC Hgb Hct MCV RDW Plt Count Lymph % (Auto) [place] % (Auto) [place] # Seg Neutrophils % Seg Neuts % (Manual) Lymphocytes % (Manual) Monocytes % (Manual) Seg Neutrophils # Seg Neutrophils # Man Lymphocytes # (Manual) Monocytes # (Manual) APTT Heparin Anti-Xa Level POC ABG pH POC ABG pCO2 POC ABG pO2 Sodium 147 H Potassium Chloride 111.1 H Carbon Dioxide BUN 30 H Creatinine 2.0 H Glucose 154 H POC Glucose 148 H 142 H Lactic Acid Calcium 8.1 L Phosphorus Total Bilirubin AST 269 H ALT 204 H Total Creatine Kinase 3647 H CK-MB (CK-2) 48.3 H Troponin T 2.230 H* D Total Protein 5.8 L Albumin 2.6 L HDL Cholesterol Salicylates Acetaminophen Crossmatch 10/12/18 10/12/18 10/12/18 04:04 04:08 04:19 WBC 24.4 H RBC Hgb Hct MCV RDW Plt Count Lymph % (Auto) [place] % (Auto) [place] # Seg Neutrophils % Seg Neuts % (Manual) 32.0 L Lymphocytes % (Manual) Monocytes % (Manual) 8.0 H Seg Neutrophils # Seg Neutrophils # Man 7.8 H Lymphocytes # (Manual) Monocytes # (Manual) 2.0 H APTT Heparin Anti-Xa Level POC ABG pH 7.317 L POC ABG pCO2 49.3 H POC ABG pO2 Sodium Potassium Chloride Carbon Dioxide BUN Creatinine Glucose POC Glucose 143 H Lactic Acid Calcium Phosphorus Total Bilirubin AST ALT Total Creatine Kinase CK-MB (CK-2) Troponin T Total Protein Albumin HDL Cholesterol Salicylates Acetaminophen Crossmatch 10/12/18 10/12/18 10/12/18 05:29 06:52 08:09 WBC RBC Hgb Hct MCV RDW Plt Count Lymph % (Auto) [place] % (Auto) [place] # Seg Neutrophils % Seg Neuts % (Manual) Lymphocytes % (Manual) Monocytes % (Manual) Seg Neutrophils # Seg Neutrophils # Man Lymphocytes # (Manual) Monocytes # (Manual) APTT Heparin Anti-Xa Level POC ABG pH 7.322 L POC ABG pCO2 46.5 H POC ABG pO2 Sodium Potassium Chloride Carbon Dioxide BUN Creatinine Glucose POC Glucose 196 H 226 H Lactic Acid Calcium Phosphorus Total Bilirubin AST ALT Total Creatine Kinase CK-MB (CK-2) Troponin T Total Protein Albumin HDL Cholesterol Salicylates Acetaminophen Crossmatch 10/12/18 10/12/18 10/12/18 08:38 10:03 15:50 WBC RBC Hgb Hct MCV RDW Plt Count Lymph % (Auto) [place] % (Auto) [place] # Seg Neutrophils % Seg Neuts % (Manual) Lymphocytes % (Manual) Monocytes % (Manual) Seg Neutrophils # Seg Neutrophils # Man Lymphocytes # (Manual) Monocytes # (Manual) APTT Heparin Anti-Xa Level POC ABG pH POC ABG pCO2 POC ABG pO2 Sodium Potassium Chloride Carbon Dioxide BUN Creatinine Glucose POC Glucose 138 H 148 H 221 H Lactic Acid Calcium Phosphorus Total Bilirubin AST ALT Total Creatine Kinase CK-MB (CK-2) Troponin T Total Protein Albumin HDL Cholesterol Salicylates Acetaminophen Crossmatch 10/12/18 10/12/18 10/12/18 18:39 20:56 21:34 WBC RBC Hgb Hct MCV RDW Plt Count Lymph % (Auto) [place] % (Auto) [place] # Seg Neutrophils % Seg Neuts % (Manual) Lymphocytes % (Manual) Monocytes % (Manual) Seg Neutrophils # Seg Neutrophils # Man Lymphocytes # (Manual) Monocytes # (Manual) APTT Heparin Anti-Xa Level POC ABG pH 7.336 L POC ABG pCO2 46.0 H POC ABG pO2 Sodium Potassium Chloride Carbon Dioxide BUN Creatinine Glucose POC Glucose 255 H 260 H Lactic Acid Calcium Phosphorus Total Bilirubin AST ALT Total Creatine Kinase CK-MB (CK-2) Troponin T Total Protein Albumin HDL Cholesterol Salicylates Acetaminophen Crossmatch 10/13/18 10/13/18 10/13/18 02:29 05:09 05:40 WBC 17.0 H RBC Hgb Hct MCV RDW Plt Count Lymph % (Auto) [place] % (Auto) 9.2 H [place] # 1.6 H Seg Neutrophils % 76.2 H Seg Neuts % (Manual) Lymphocytes % (Manual) Monocytes % (Manual) Seg Neutrophils # 12.9 H Seg Neutrophils # Man Lymphocytes # (Manual) Monocytes # (Manual) APTT Heparin Anti-Xa Level POC ABG pH POC ABG pCO2 POC ABG pO2 Sodium Potassium Chloride Carbon Dioxide BUN Creatinine Glucose POC Glucose 216 H 249 H Lactic Acid Calcium Phosphorus Total Bilirubin AST ALT Total Creatine Kinase CK-MB (CK-2) Troponin T Total Protein Albumin HDL Cholesterol Salicylates Acetaminophen Crossmatch 10/13/18 10/13/18 10/13/18 05:40 05:40 09:46 WBC RBC Hgb Hct MCV RDW Plt Count Lymph % (Auto) [place] % (Auto) [place] # Seg Neutrophils % Seg Neuts % (Manual) Lymphocytes % (Manual) Monocytes % (Manual) Seg Neutrophils # Seg Neutrophils # Man Lymphocytes # (Manual) Monocytes # (Manual) APTT Heparin Anti-Xa Level POC ABG pH POC ABG pCO2 POC ABG pO2 Sodium 146 H Potassium Chloride 109.8 H Carbon Dioxide BUN 35 H Creatinine Glucose 245 H POC Glucose 235 H Lactic Acid Calcium 7.9 L Phosphorus Total Bilirubin AST ALT Total Creatine Kinase CK-MB (CK-2) Troponin T 0.952 H* D Total Protein Albumin HDL Cholesterol Salicylates Acetaminophen Crossmatch 10/13/18 10/13/18 10/13/18 13:58 16:15 17:30 WBC RBC Hgb Hct MCV RDW Plt Count Lymph % (Auto) [place] % (Auto) [place] # Seg Neutrophils % Seg Neuts % (Manual) Lymphocytes % (Manual) Monocytes % (Manual) Seg Neutrophils # Seg Neutrophils # Man Lymphocytes # (Manual) Monocytes # (Manual) APTT Heparin Anti-Xa Level POC ABG pH POC ABG pCO2 51.2 H POC ABG pO2 Sodium Potassium Chloride Carbon Dioxide BUN Creatinine Glucose POC Glucose 139 H Lactic Acid Calcium Phosphorus Total Bilirubin AST ALT Total Creatine Kinase CK-MB (CK-2) Troponin T 0.816 H* Total Protein Albumin HDL Cholesterol Salicylates Acetaminophen Crossmatch 10/13/18 10/14/18 10/14/18 21:25 01:49 04:52 WBC RBC Hgb Hct MCV RDW Plt Count Lymph % (Auto) [place] % (Auto) [place] # Seg Neutrophils % Seg Neuts % (Manual) Lymphocytes % (Manual) Monocytes % (Manual) Seg Neutrophils # Seg Neutrophils # Man Lymphocytes # (Manual) Monocytes # (Manual) APTT Heparin Anti-Xa Level POC ABG pH POC ABG pCO2 56.0 H POC ABG pO2 Sodium Potassium Chloride Carbon Dioxide BUN Creatinine Glucose POC Glucose 205 H 166 H Lactic Acid Calcium Phosphorus Total Bilirubin AST ALT Total Creatine Kinase CK-MB (CK-2) Troponin T Total Protein Albumin HDL Cholesterol Salicylates Acetaminophen Crossmatch 10/14/18 10/14/18 10/14/18 05:32 09:45 09:45 WBC RBC Hgb 11.4 L Hct 34.5 L MCV RDW Plt Count 139 L Lymph % (Auto) [place] % (Auto) [place] # Seg Neutrophils % Seg Neuts % (Manual) Lymphocytes % (Manual) Monocytes % (Manual) Seg Neutrophils # Seg Neutrophils # Man Lymphocytes # (Manual) Monocytes # (Manual) APTT Heparin Anti-Xa Level POC ABG pH POC ABG pCO2 POC ABG pO2 Sodium 148 H Potassium Chloride 107.3 H Carbon Dioxide 34 H D BUN Creatinine 0.7 L D Glucose 191 H POC Glucose 164 H Lactic Acid Calcium 7.3 L Phosphorus Total Bilirubin AST 110 H ALT 91 H Total Creatine Kinase CK-MB (CK-2) Troponin T Total Protein 4.9 L Albumin 2.0 L HDL Cholesterol Salicylates Acetaminophen Crossmatch 10/14/18 10/14/18 10/14/18 10:54 12:20 18:30 WBC RBC Hgb Hct MCV RDW Plt Count Lymph % (Auto) [place] % (Auto) [place] # Seg Neutrophils % Seg Neuts % (Manual) Lymphocytes % (Manual) Monocytes % (Manual) Seg Neutrophils # Seg Neutrophils # Man Lymphocytes # (Manual) Monocytes # (Manual) APTT Heparin Anti-Xa Level POC ABG pH POC ABG pCO2 POC ABG pO2 Sodium Potassium Chloride Carbon Dioxide BUN Creatinine Glucose POC Glucose 173 H 158 H 108 H Lactic Acid Calcium Phosphorus Total Bilirubin AST ALT Total Creatine Kinase CK-MB (CK-2) Troponin T Total Protein Albumin HDL Cholesterol Salicylates Acetaminophen Crossmatch 10/14/18 10/15/18 10/15/18 21:54 02:12 04:19 WBC RBC Hgb Hct MCV RDW Plt Count Lymph % (Auto) [place] % (Auto) [place] # Seg Neutrophils % Seg Neuts % (Manual) Lymphocytes % (Manual) Monocytes % (Manual) Seg Neutrophils # Seg Neutrophils # Man Lymphocytes # (Manual) Monocytes # (Manual) APTT Heparin Anti-Xa Level POC ABG pH 7.491 H POC ABG pCO2 45.1 H POC ABG pO2 Sodium Potassium Chloride Carbon Dioxide BUN Creatinine Glucose POC Glucose 110 H 164 H Lactic Acid Calcium Phosphorus Total Bilirubin AST ALT Total Creatine Kinase CK-MB (CK-2) Troponin T Total Protein Albumin HDL Cholesterol Salicylates Acetaminophen Crossmatch 10/15/18 10/15/18 10/15/18 04:55 05:43 06:20 WBC RBC Hgb 11.7 L Hct 34.7 L MCV RDW Plt Count Lymph % (Auto) [place] % (Auto) [place] # Seg Neutrophils % Seg Neuts % (Manual) Lymphocytes % (Manual) Monocytes % (Manual) Seg Neutrophils # Seg Neutrophils # Man Lymphocytes # (Manual) Monocytes # (Manual) APTT Heparin Anti-Xa Level POC ABG pH POC ABG pCO2 47.3 H POC ABG pO2 78 L Sodium Potassium Chloride Carbon Dioxide BUN Creatinine Glucose POC Glucose 250 H Lactic Acid Calcium Phosphorus Total Bilirubin AST ALT Total Creatine Kinase CK-MB (CK-2) Troponin T Total Protein Albumin HDL Cholesterol Salicylates Acetaminophen Crossmatch 10/15/18 10/15/18 10/15/18 12:00 12:00 12:11 WBC RBC Hgb 11.5 L Hct 34.0 L MCV RDW Plt Count Lymph % (Auto) [place] % (Auto) [place] # Seg Neutrophils % Seg Neuts % (Manual) Lymphocytes % (Manual) Monocytes % (Manual) Seg Neutrophils # Seg Neutrophils # Man Lymphocytes # (Manual) Monocytes # (Manual) APTT Heparin Anti-Xa Level POC ABG pH POC ABG pCO2 POC ABG pO2 Sodium 147 H Potassium Chloride 108.5 H Carbon Dioxide BUN Creatinine 0.7 L Glucose 209 H POC Glucose 197 H Lactic Acid Calcium 7.3 L Phosphorus Total Bilirubin AST ALT Total Creatine Kinase CK-MB (CK-2) Troponin T Total Protein Albumin HDL Cholesterol Salicylates Acetaminophen Crossmatch 10/15/18 10/15/18 10/15/18 15:48 18:34 21:29 WBC RBC Hgb Hct MCV RDW Plt Count Lymph % (Auto) [place] % (Auto) [place] # Seg Neutrophils % Seg Neuts % (Manual) Lymphocytes % (Manual) Monocytes % (Manual) Seg Neutrophils # Seg Neutrophils # Man Lymphocytes # (Manual) Monocytes # (Manual) APTT Heparin Anti-Xa Level POC ABG pH POC ABG pCO2 POC ABG pO2 Sodium Potassium Chloride Carbon Dioxide BUN Creatinine Glucose POC Glucose 220 H 249 H 209 H Lactic Acid Calcium Phosphorus Total Bilirubin AST ALT Total Creatine Kinase CK-MB (CK-2) Troponin T Total Protein Albumin HDL Cholesterol Salicylates Acetaminophen Crossmatch 10/16/18 10/16/18 10/16/18 02:16 03:50 05:57 WBC RBC Hgb Hct MCV RDW Plt Count Lymph % (Auto) [place] % (Auto) [place] # Seg Neutrophils % Seg Neuts % (Manual) Lymphocytes % (Manual) Monocytes % (Manual) Seg Neutrophils # Seg Neutrophils # Man Lymphocytes # (Manual) Monocytes # (Manual) APTT Heparin Anti-Xa Level POC ABG pH POC ABG pCO2 55.8 H POC ABG pO2 Sodium Potassium Chloride Carbon Dioxide BUN Creatinine Glucose POC Glucose 110 H 209 H Lactic Acid Calcium Phosphorus Total Bilirubin AST ALT Total Creatine Kinase CK-MB (CK-2) Troponin T Total Protein Albumin HDL Cholesterol Salicylates Acetaminophen Crossmatch 10/16/18 10/16/18 10/16/18 10:51 12:51 15:01 WBC RBC Hgb Hct MCV RDW Plt Count Lymph % (Auto) [place] % (Auto) [place] # Seg Neutrophils % Seg Neuts % (Manual) Lymphocytes % (Manual) Monocytes % (Manual) Seg Neutrophils # Seg Neutrophils # Man Lymphocytes # (Manual) Monocytes # (Manual) APTT Heparin Anti-Xa Level POC ABG pH POC ABG pCO2 48.9 H POC ABG pO2 Sodium Potassium Chloride Carbon Dioxide BUN Creatinine Glucose POC Glucose 198 H 196 H Lactic Acid Calcium Phosphorus Total Bilirubin AST ALT Total Creatine Kinase CK-MB (CK-2) Troponin T Total Protein Albumin HDL Cholesterol Salicylates Acetaminophen Crossmatch 10/16/18 10/16/18 10/17/18 17:34 21:59 02:17 WBC RBC Hgb Hct MCV RDW Plt Count Lymph % (Auto) [place] % (Auto) [place] # Seg Neutrophils % Seg Neuts % (Manual) Lymphocytes % (Manual) Monocytes % (Manual) Seg Neutrophils # Seg Neutrophils # Man Lymphocytes # (Manual) Monocytes # (Manual) APTT Heparin Anti-Xa Level POC ABG pH POC ABG pCO2 POC ABG pO2 Sodium Potassium Chloride Carbon Dioxide BUN Creatinine Glucose POC Glucose 179 H 139 H 135 H Lactic Acid Calcium Phosphorus Total Bilirubin AST ALT Total Creatine Kinase CK-MB (CK-2) Troponin T Total Protein Albumin HDL Cholesterol Salicylates Acetaminophen Crossmatch 10/17/18 10/17/18 10/17/18 05:40 05:47 10:18 WBC RBC Hgb 11.3 L Hct 33.2 L MCV RDW Plt Count Lymph % (Auto) [place] % (Auto) [place] # Seg Neutrophils % Seg Neuts % (Manual) Lymphocytes % (Manual) Monocytes % (Manual) Seg Neutrophils # Seg Neutrophils # Man Lymphocytes # (Manual) Monocytes # (Manual) APTT Heparin Anti-Xa Level POC ABG pH POC ABG pCO2 POC ABG pO2 Sodium Potassium Chloride Carbon Dioxide BUN Creatinine Glucose POC Glucose 125 H 139 H Lactic Acid Calcium Phosphorus Total Bilirubin AST ALT Total Creatine Kinase CK-MB (CK-2) Troponin T Total Protein Albumin HDL Cholesterol Salicylates Acetaminophen Crossmatch 10/17/18 10/18/18 10/18/18 23:11 08:49 11:31 WBC RBC Hgb Hct MCV RDW Plt Count Lymph % (Auto) [place] % (Auto) [place] # Seg Neutrophils % Seg Neuts % (Manual) Lymphocytes % (Manual) Monocytes % (Manual) Seg Neutrophils # Seg Neutrophils # Man Lymphocytes # (Manual) Monocytes # (Manual) APTT Heparin Anti-Xa Level POC ABG pH POC ABG pCO2 POC ABG pO2 Sodium Potassium Chloride Carbon Dioxide BUN Creatinine Glucose POC Glucose 165 H 125 H 182 H Lactic Acid Calcium Phosphorus Total Bilirubin AST ALT Total Creatine Kinase CK-MB (CK-2) Troponin T Total Protein Albumin HDL Cholesterol Salicylates Acetaminophen Crossmatch 10/18/18 10/18/18 10/19/18 16:12 21:02 00:28 WBC RBC Hgb 11.4 L Hct 33.6 L MCV RDW Plt Count Lymph % (Auto) [place] % (Auto) 14.0 H [place] # 1.2 H Seg Neutrophils % Seg Neuts % (Manual) Lymphocytes % (Manual) Monocytes % (Manual) Seg Neutrophils # Seg Neutrophils # Man Lymphocytes # (Manual) Monocytes # (Manual) APTT Heparin Anti-Xa Level POC ABG pH POC ABG pCO2 POC ABG pO2 Sodium Potassium Chloride Carbon Dioxide BUN Creatinine Glucose POC Glucose 168 H 324 H Lactic Acid Calcium Phosphorus Total Bilirubin AST ALT Total Creatine Kinase CK-MB (CK-2) Troponin T Total Protein Albumin HDL Cholesterol Salicylates Acetaminophen Crossmatch 10/19/18 10/19/18 10/19/18 04:57 04:57 07:32 WBC RBC Hgb 11.7 L Hct 34.0 L MCV RDW Plt Count Lymph % (Auto) [place] % (Auto) [place] # Seg Neutrophils % Seg Neuts % (Manual) Lymphocytes % (Manual) Monocytes % (Manual) Seg Neutrophils # Seg Neutrophils # Man Lymphocytes # (Manual) Monocytes # (Manual) APTT Heparin Anti-Xa Level POC ABG pH POC ABG pCO2 POC ABG pO2 Sodium Potassium 3.5 L Chloride 108.6 H Carbon Dioxide BUN Creatinine 0.6 L Glucose POC Glucose 159 H Lactic Acid Calcium 7.9 L Phosphorus Total Bilirubin AST ALT Total Creatine Kinase CK-MB (CK-2) Troponin T Total Protein Albumin HDL Cholesterol Salicylates Acetaminophen Crossmatch 10/19/18 10/19/18 10/20/18 16:25 20:59 12:04 WBC RBC Hgb Hct MCV RDW Plt Count Lymph % (Auto) [place] % (Auto) [place] # Seg Neutrophils % Seg Neuts % (Manual) Lymphocytes % (Manual) Monocytes % (Manual) Seg Neutrophils # Seg Neutrophils # Man Lymphocytes # (Manual) Monocytes # (Manual) APTT Heparin Anti-Xa Level POC ABG pH POC ABG pCO2 POC ABG pO2 Sodium Potassium Chloride Carbon Dioxide BUN Creatinine Glucose POC Glucose 134 H 110 H 338 H Lactic Acid Calcium Phosphorus Total Bilirubin AST ALT Total Creatine Kinase CK-MB (CK-2) Troponin T Total Protein Albumin HDL Cholesterol Salicylates Acetaminophen Crossmatch 10/20/18 10/20/18 10/21/18 17:55 22:07 04:59 WBC RBC Hgb 11.6 L Hct 33.9 L MCV RDW Plt Count Lymph % (Auto) [place] % (Auto) 9.7 H [place] # 0.9 H Seg Neutrophils % 70.7 H Seg Neuts % (Manual) Lymphocytes % (Manual) Monocytes % (Manual) Seg Neutrophils # Seg Neutrophils # Man Lymphocytes # (Manual) Monocytes # (Manual) APTT Heparin Anti-Xa Level POC ABG pH POC ABG pCO2 POC ABG pO2 Sodium Potassium Chloride Carbon Dioxide BUN Creatinine Glucose POC Glucose 146 H 164 H Lactic Acid Calcium Phosphorus Total Bilirubin AST ALT Total Creatine Kinase CK-MB (CK-2) Troponin T Total Protein Albumin HDL Cholesterol Salicylates Acetaminophen Crossmatch 10/21/18 10/21/18 10/21/18 04:59 07:52 11:39 WBC RBC Hgb Hct MCV RDW Plt Count Lymph % (Auto) [place] % (Auto) [place] # Seg Neutrophils % Seg Neuts % (Manual) Lymphocytes % (Manual) Monocytes % (Manual) Seg Neutrophils # Seg Neutrophils # Man Lymphocytes # (Manual) Monocytes # (Manual) APTT Heparin Anti-Xa Level POC ABG pH POC ABG pCO2 POC ABG pO2 Sodium Potassium 3.5 L Chloride 107.1 H Carbon Dioxide BUN Creatinine 0.5 L Glucose 158 H POC Glucose 142 H 194 H Lactic Acid Calcium 7.5 L Phosphorus Total Bilirubin AST ALT Total Creatine Kinase CK-MB (CK-2) Troponin T Total Protein 5.6 L Albumin 2.0 L HDL Cholesterol Salicylates Acetaminophen Crossmatch 10/21/18 10/21/18 10/22/18 17:05 20:37 05:38 WBC RBC 3.48 L Hgb 10.8 L Hct 31.7 L MCV RDW Plt Count 458 H Lymph % (Auto) [place] % (Auto) 10.5 H [place] # Seg Neutrophils % Seg Neuts % (Manual) Lymphocytes % (Manual) Monocytes % (Manual) Seg Neutrophils # Seg Neutrophils # Man Lymphocytes # (Manual) Monocytes # (Manual) APTT Heparin Anti-Xa Level POC ABG pH POC ABG pCO2 POC ABG pO2 Sodium Potassium Chloride Carbon Dioxide BUN Creatinine Glucose POC Glucose 167 H 182 H Lactic Acid Calcium Phosphorus Total Bilirubin AST ALT Total Creatine Kinase CK-MB (CK-2) Troponin T Total Protein Albumin HDL Cholesterol Salicylates Acetaminophen Crossmatch 10/22/18 10/22/18 10/22/18 05:38 07:48 12:08 WBC RBC Hgb Hct MCV RDW Plt Count Lymph % (Auto) [place] % (Auto) [place] # Seg Neutrophils % Seg Neuts % (Manual) Lymphocytes % (Manual) Monocytes % (Manual) Seg Neutrophils # Seg Neutrophils # Man Lymphocytes # (Manual) Monocytes # (Manual) APTT Heparin Anti-Xa Level POC ABG pH POC ABG pCO2 POC ABG pO2 Sodium Potassium Chloride Carbon Dioxide BUN Creatinine 0.5 L Glucose 146 H POC Glucose 130 H 167 H Lactic Acid Calcium 7.8 L Phosphorus Total Bilirubin AST 41 H ALT Total Creatine Kinase CK-MB (CK-2) Troponin T Total Protein 5.5 L Albumin 2.1 L HDL Cholesterol Salicylates Acetaminophen Crossmatch 10/22/18 10/22/18 10/23/18 16:45 21:42 04:38 WBC RBC Hgb 11.7 L Hct 34.7 L MCV RDW Plt Count 523 H Lymph % (Auto) [place] % (Auto) 8.7 H [place] # Seg Neutrophils % 71.6 H Seg Neuts % (Manual) Lymphocytes % (Manual) Monocytes % (Manual) Seg Neutrophils # Seg Neutrophils # Man Lymphocytes # (Manual) Monocytes # (Manual) APTT Heparin Anti-Xa Level POC ABG pH POC ABG pCO2 POC ABG pO2 Sodium Potassium Chloride Carbon Dioxide BUN Creatinine Glucose POC Glucose 113 H 134 H Lactic Acid Calcium Phosphorus Total Bilirubin AST ALT Total Creatine Kinase CK-MB (CK-2) Troponin T Total Protein Albumin HDL Cholesterol Salicylates Acetaminophen Crossmatch 10/23/18 10/23/18 10/23/18 04:38 07:56 11:15 WBC RBC Hgb Hct MCV RDW Plt Count Lymph % (Auto) [place] % (Auto) [place] # Seg Neutrophils % Seg Neuts % (Manual) Lymphocytes % (Manual) Monocytes % (Manual) Seg Neutrophils # Seg Neutrophils # Man Lymphocytes # (Manual) Monocytes # (Manual) APTT Heparin Anti-Xa Level POC ABG pH POC ABG pCO2 POC ABG pO2 Sodium Potassium Chloride Carbon Dioxide BUN 7 L Creatinine 0.5 L Glucose 150 H POC Glucose 123 H 212 H Lactic Acid Calcium 8.0 L Phosphorus Total Bilirubin AST 55 H ALT Total Creatine Kinase CK-MB (CK-2) Troponin T Total Protein 6.2 L Albumin 2.3 L HDL Cholesterol Salicylates Acetaminophen Crossmatch 10/23/18 10/23/18 10/24/18 16:06 22:01 05:56 WBC 11.8 H RBC 3.64 L Hgb 11.2 L Hct 33.4 L MCV RDW Plt Count 564 H Lymph % (Auto) 11.3 L [place] % (Auto) [place] # Seg Neutrophils % 80.2 H Seg Neuts % (Manual) Lymphocytes % (Manual) Monocytes % (Manual) Seg Neutrophils # 9.4 H Seg Neutrophils # Man Lymphocytes # (Manual) Monocytes # (Manual) APTT Heparin Anti-Xa Level POC ABG pH POC ABG pCO2 POC ABG pO2 Sodium Potassium Chloride Carbon Dioxide BUN Creatinine Glucose POC Glucose 152 H 235 H Lactic Acid Calcium Phosphorus Total Bilirubin AST ALT Total Creatine Kinase CK-MB (CK-2) Troponin T Total Protein Albumin HDL Cholesterol Salicylates Acetaminophen Crossmatch 10/24/18 10/24/18 10/24/18 05:56 07:52 11:58 WBC RBC Hgb Hct MCV RDW Plt Count Lymph % (Auto) [place] % (Auto) [place] # Seg Neutrophils % Seg Neuts % (Manual) Lymphocytes % (Manual) Monocytes % (Manual) Seg Neutrophils # Seg Neutrophils # Man Lymphocytes # (Manual) Monocytes # (Manual) APTT Heparin Anti-Xa Level POC ABG pH POC ABG pCO2 POC ABG pO2 Sodium Potassium Chloride Carbon Dioxide BUN Creatinine 0.5 L Glucose 175 H POC Glucose 156 H 238 H Lactic Acid Calcium 8.0 L Phosphorus Total Bilirubin AST 44 H ALT Total Creatine Kinase CK-MB (CK-2) Troponin T Total Protein 6.2 L Albumin 2.4 L HDL Cholesterol Salicylates Acetaminophen Crossmatch 10/24/18 10/24/18 10/25/18 16:20 22:13 07:53 WBC RBC Hgb Hct MCV RDW Plt Count Lymph % (Auto) [place] % (Auto) [place] # Seg Neutrophils % Seg Neuts % (Manual) Lymphocytes % (Manual) Monocytes % (Manual) Seg Neutrophils # Seg Neutrophils # Man Lymphocytes # (Manual) Monocytes # (Manual) APTT Heparin Anti-Xa Level POC ABG pH POC ABG pCO2 POC ABG pO2 Sodium Potassium Chloride Carbon Dioxide BUN Creatinine Glucose POC Glucose 60 L 261 H 211 H Lactic Acid Calcium Phosphorus Total Bilirubin AST ALT Total Creatine Kinase CK-MB (CK-2) Troponin T Total Protein Albumin HDL Cholesterol Salicylates Acetaminophen Crossmatch 10/25/18 10/25/18 10/25/18 11:03 16:02 22:45 WBC RBC Hgb Hct MCV RDW Plt Count Lymph % (Auto) [place] % (Auto) [place] # Seg Neutrophils % Seg Neuts % (Manual) Lymphocytes % (Manual) Monocytes % (Manual) Seg Neutrophils # Seg Neutrophils # Man Lymphocytes # (Manual) Monocytes # (Manual) APTT Heparin Anti-Xa Level POC ABG pH POC ABG pCO2 POC ABG pO2 Sodium Potassium Chloride Carbon Dioxide BUN Creatinine Glucose POC Glucose 137 H 186 H 140 H Lactic Acid Calcium Phosphorus Total Bilirubin AST ALT Total Creatine Kinase CK-MB (CK-2) Troponin T Total Protein Albumin HDL Cholesterol Salicylates Acetaminophen Crossmatch 10/26/18 10/26/18 10/26/18 08:13 10:08 11:28 WBC RBC Hgb Hct MCV RDW Plt Count Lymph % (Auto) [place] % (Auto) [place] # Seg Neutrophils % Seg Neuts % (Manual) Lymphocytes % (Manual) Monocytes % (Manual) Seg Neutrophils # Seg Neutrophils # Man Lymphocytes # (Manual) Monocytes # (Manual) APTT Heparin Anti-Xa Level POC ABG pH POC ABG pCO2 POC ABG pO2 Sodium Potassium Chloride Carbon Dioxide BUN Creatinine Glucose POC Glucose 144 H 110 H 201 H Lactic Acid Calcium Phosphorus Total Bilirubin AST ALT Total Creatine Kinase CK-MB (CK-2) Troponin T Total Protein Albumin HDL Cholesterol Salicylates Acetaminophen Crossmatch 10/26/18 10/26/18 10/27/18 16:36 22:29 07:34 WBC RBC Hgb Hct MCV RDW Plt Count Lymph % (Auto) [place] % (Auto) [place] # Seg Neutrophils % Seg Neuts % (Manual) Lymphocytes % (Manual) Monocytes % (Manual) Seg Neutrophils # Seg Neutrophils # Man Lymphocytes # (Manual) Monocytes # (Manual) APTT Heparin Anti-Xa Level POC ABG pH POC ABG pCO2 POC ABG pO2 Sodium Potassium Chloride Carbon Dioxide BUN Creatinine Glucose POC Glucose 147 H 302 H 182 H Lactic Acid Calcium Phosphorus Total Bilirubin AST ALT Total Creatine Kinase CK-MB (CK-2) Troponin T Total Protein Albumin HDL Cholesterol Salicylates Acetaminophen Crossmatch 10/27/18 10/27/18 10/27/18 11:57 13:33 14:55 WBC RBC Hgb Hct MCV RDW Plt Count 550 H Lymph % (Auto) [place] % (Auto) [place] # Seg Neutrophils % Seg Neuts % (Manual) Lymphocytes % (Manual) Monocytes % (Manual) Seg Neutrophils # Seg Neutrophils # Man Lymphocytes # (Manual) Monocytes # (Manual) APTT Heparin Anti-Xa Level POC ABG pH POC ABG pCO2 POC ABG pO2 Sodium Potassium Chloride Carbon Dioxide BUN Creatinine Glucose POC Glucose 209 H Lactic Acid Calcium Phosphorus Total Bilirubin AST ALT Total Creatine Kinase CK-MB (CK-2) Troponin T Total Protein Albumin HDL Cholesterol Salicylates Acetaminophen Crossmatch See Detail 10/27/18 10/27/18 10/28/18 17:09 21:45 07:45 WBC RBC Hgb Hct MCV RDW Plt Count Lymph % (Auto) [place] % (Auto) [place] # Seg Neutrophils % Seg Neuts % (Manual) Lymphocytes % (Manual) Monocytes % (Manual) Seg Neutrophils # Seg Neutrophils # Man Lymphocytes # (Manual) Monocytes # (Manual) APTT Heparin Anti-Xa Level POC ABG pH POC ABG pCO2 POC ABG pO2 Sodium Potassium Chloride Carbon Dioxide BUN Creatinine Glucose POC Glucose 233 H 136 H 201 H Lactic Acid Calcium Phosphorus Total Bilirubin AST ALT Total Creatine Kinase CK-MB (CK-2) Troponin T Total Protein Albumin HDL Cholesterol Salicylates Acetaminophen Crossmatch 10/28/18 10/28/18 10/28/18 11:17 16:34 19:51 WBC RBC Hgb Hct MCV RDW Plt Count Lymph % (Auto) [place] % (Auto) [place] # Seg Neutrophils % Seg Neuts % (Manual) Lymphocytes % (Manual) Monocytes % (Manual) Seg Neutrophils # Seg Neutrophils # Man Lymphocytes # (Manual) Monocytes # (Manual) APTT Heparin Anti-Xa Level < 0.10 L POC ABG pH POC ABG pCO2 POC ABG pO2 Sodium Potassium Chloride Carbon Dioxide BUN Creatinine Glucose POC Glucose 116 H 168 H Lactic Acid Calcium Phosphorus Total Bilirubin AST ALT Total Creatine Kinase CK-MB (CK-2) Troponin T Total Protein Albumin HDL Cholesterol Salicylates Acetaminophen Crossmatch 10/28/18 10/29/18 10/29/18 21:52 07:11 07:11 WBC RBC Hgb Hct MCV RDW Plt Count 470 H Lymph % (Auto) [place] % (Auto) [place] # Seg Neutrophils % Seg Neuts % (Manual) Lymphocytes % (Manual) Monocytes % (Manual) Seg Neutrophils # Seg Neutrophils # Man Lymphocytes # (Manual) Monocytes # (Manual) APTT Heparin Anti-Xa Level 0.13 L POC ABG pH POC ABG pCO2 POC ABG pO2 Sodium Potassium Chloride Carbon Dioxide BUN Creatinine Glucose POC Glucose 159 H Lactic Acid Calcium Phosphorus Total Bilirubin AST ALT Total Creatine Kinase CK-MB (CK-2) Troponin T Total Protein Albumin HDL Cholesterol Salicylates Acetaminophen Crossmatch 10/29/18 10/29/18 10/29/18 07:11 07:43 11:29 WBC RBC Hgb Hct MCV RDW Plt Count Lymph % (Auto) [place] % (Auto) [place] # Seg Neutrophils % Seg Neuts % (Manual) Lymphocytes % (Manual) Monocytes % (Manual) Seg Neutrophils # Seg Neutrophils # Man Lymphocytes # (Manual) Monocytes # (Manual) APTT Heparin Anti-Xa Level POC ABG pH POC ABG pCO2 POC ABG pO2 Sodium Potassium Chloride Carbon Dioxide BUN 7 L Creatinine 0.5 L Glucose 122 H POC Glucose 147 H 165 H Lactic Acid Calcium 8.2 L Phosphorus Total Bilirubin AST ALT Total Creatine Kinase CK-MB (CK-2) Troponin T Total Protein Albumin HDL Cholesterol Salicylates Acetaminophen Crossmatch Allied health notes reviewed: nursing
[2018-10-29] MEDS: HEPARIN/ 0.45% NACL-25,000 UNIT/500 ML 25,000 UNIT/500 ML BAG IV SCH (20:35)
[2018-10-29] MEDS: XANAX PO PRN (21:27)
[2018-10-30] MEDS: HumuLIN R SUB-Q SCH ×5 (01:27→22:00)
[2018-10-30] MEDS: DILAUDID IV PRN ×3 (02:28→19:23)
[2018-10-30] MEDS: PERCOCET 5/325 PO PRN ×3 (02:41→20:33)
[2018-10-30] MEDS: XANAX PO PRN ×3 (04:34→20:34)
[2018-10-30 04:52] LABS: Hematocrit 28.8 % (35.5-45.6); Mean Corpuscular HGB Conc 35 % (32-34); Mean Corpuscular Volume 91 fl (84-94); Platelet Count 317 K/mm3 (140-440); Red Blood Count 3.16 M/mm3 (3.65-5.03); Red Cell Distribution Width 14.8 % (13.2-15.2)
[2018-10-30 05:13] LABS: BUN/Creatinine Ratio 18; Blood Urea Nitrogen 14 mg/dL (9-20); Calcium 7.5 mg/dL (8.4-10.2); Hemolysis Index 0
[2018-10-30 06:11] LABS: Basophils % (Manual) 0 % (0.0-1.8); Eosinophils % (Manual) 0 % (0.0-4.3); Myelocytes # (Manual) 0.1 K/mm3; Platelet Estimate Consistent w Auto; Total Cells Counted 200
[2018-10-30] MEDS ORDERED: NACL 0.9% 250ML 250 ML IV ONE ×2 (09:30→09:45)
[2018-10-30] MEDS: LOPRESSOR PO SCH ×2 (09:31→21:19)
[2018-10-30] MEDS: PEPCID PO SCH ×2 (09:32→21:19)
--- NOTE | 2018-10-30 09:38 | Progress Note ---
Assessment and Plan Patient postop day 1 status post left below the knee amputation. Given the coolness of his left lower leg, we'll obtain arterial ultrasound to ensure perfusion. Subjective Date of service: 10/30/18 Principal diagnosis: Ac hypercapnic hypoxemic Resp failure; Drug OD; AE-COPD; NINOSKA; Seizures Interval history: Patient status post left below the knee amputation with aortic stenting and extension into the right external iliac artery and associated thrombectomy. The patient's left leg is warm and well-perfused. His left BKA bandage will be left intact until tomorrow. The patient's right leg appears to be cooler from the knee distally. No complaints of pain. Objective - Constitutional Vitals: Vital Signs - 12hr 10/29/18 10/29/18 10/29/18 21:58 22:00 22:31 Temperature Pulse Rate 117 H 126 H 118 H Respiratory 33 H 29 H Rate Blood Pressure 99/67 91/67 99/67 O2 Sat by Pulse Oximetry 10/29/18 10/29/18 10/29/18 22:43 23:00 23:31 Temperature 99.9 F H Pulse Rate 123 H 115 H Respiratory 32 H 36 H Rate Blood Pressure 93/51 93/51 O2 Sat by Pulse 91 94 Oximetry 10/29/18 10/30/18 10/30/18 23:57 00:00 00:31 Temperature 99.9 F H Pulse Rate 114 H 132 H 119 H Respiratory 36 H 38 H 31 H Rate Blood Pressure 93/51 98/46 98/46 O2 Sat by Pulse 95 95 96 Oximetry 10/30/18 10/30/18 10/30/18 01:01 01:31 02:01 Temperature Pulse Rate 117 H 112 H 115 H Respiratory 37 H 29 H 29 H Rate Blood Pressure 110/66 110/66 100/45 O2 Sat by Pulse 95 97 97 Oximetry 10/30/18 10/30/18 10/30/18 02:28 02:31 03:00 Temperature Pulse Rate 102 H 96 H Respiratory 22 27 H 27 H Rate Blood Pressure 110/66 96/49 O2 Sat by Pulse 99 99 Oximetry 10/30/18 10/30/18 10/30/18 03:20 03:31 03:32 Temperature 98.8 F 98.2 F Pulse Rate 98 H Respiratory 32 H Rate Blood Pressure 77/47 O2 Sat by Pulse 99 Oximetry 10/30/18 10/30/18 10/30/18 04:00 04:30 05:00 Temperature Pulse Rate 92 H 91 H 91 H Respiratory 30 H 29 H 29 H Rate Blood Pressure 95/53 93/56 97/60 O2 Sat by Pulse 99 100 99 Oximetry 10/30/18 10/30/18 10/30/18 05:30 06:00 06:30 Temperature Pulse Rate 90 90 96 H Respiratory 29 H 29 H 18 Rate Blood Pressure 97/57 93/56 82/41 O2 Sat by Pulse 98 100 96 Oximetry 10/30/18 10/30/18 10/30/18 07:00 08:00 09:31 Temperature 97.9 F Pulse Rate 87 81 Respiratory 27 H Rate Blood Pressure 93/59 81/45 O2 Sat by Pulse 99 Oximetry General appearance: Present: no acute distress - EENT Eyes: EOM intact ENT: hearing intact - Neck Neck: supple, normal ROM - Respiratory Respiratory effort: normal Extremities: abnormal - Gastrointestinal General gastrointestinal: Present: deferred Rectal Exam: deferred - Genitourinary Male genitourinary: deferred - Psychiatric Psychiatric: cooperative - Labs CBC & Chem 7: 10/30/18 04:22 10/30/18 04:22 Labs: Abnormal lab results 10/29/18 10/29/18 10/29/18 Range/Units 07:11 11:29 19:50 WBC (4.5-11.0) K/mm3 RBC (3.65-5.03) M/mm3 Hgb (11.8-15.2) gm/dl Hct (35.5-45.6) % MCHC (32-34) % Lymphocytes % (Manual) (13.4-35.0) % Seg Neutrophils # Man (1.8-7.7) K/mm3 Lymphocytes # (Manual) (1.2-5.4) K/mm3 Heparin Anti-Xa Level (0.3-0.7) U.I./ml BUN 7 L (9-20) mg/dL Creatinine 0.5 L (0.8-1.5) mg/dL Glucose 122 H (75-100) mg/dL POC Glucose 165 H 166 H (70-105) Calcium 8.2 L (8.4-10.2) mg/dL 10/29/18 10/30/18 10/30/18 Range/Units 22:11 00:11 04:22 WBC 27.0 H (4.5-11.0) K/mm3 RBC 3.16 L (3.65-5.03) M/mm3 Hgb 10.0 L (11.8-15.2) gm/dl Hct 28.8 L D (35.5-45.6) % MCHC 35 H (32-34) % Lymphocytes % (Manual) 1.5 L (13.4-35.0) % Seg Neutrophils # Man 18.6 H (1.8-7.7) K/mm3 Lymphocytes # (Manual) 0.4 L (1.2-5.4) K/mm3 Heparin Anti-Xa Level 0.25 L (0.3-0.7) U.I./ml BUN (9-20) mg/dL Creatinine (0.8-1.5) mg/dL Glucose (75-100) mg/dL POC Glucose 173 H (70-105) Calcium (8.4-10.2) mg/dL 10/30/18 10/30/18 10/30/18 Range/Units 04:22 07:47 07:55 WBC (4.5-11.0) K/mm3 RBC (3.65-5.03) M/mm3 Hgb (11.8-15.2) gm/dl Hct (35.5-45.6) % MCHC (32-34) % Lymphocytes % (Manual) (13.4-35.0) % Seg Neutrophils # Man (1.8-7.7) K/mm3 Lymphocytes # (Manual) (1.2-5.4) K/mm3 Heparin Anti-Xa Level < 0.10 L (0.3-0.7) U.I./ml BUN (9-20) mg/dL Creatinine (0.8-1.5) mg/dL Glucose 224 H (75-100) mg/dL POC Glucose 168 H (70-105) Calcium 7.5 L (8.4-10.2) mg/dL Medications & Allergies - Medications Allergies/Adverse Reactions: Allergies No Known Allergies Allergy (Verified 10/31/14 11:20) Home Medications: Home Medications Medication Instructions Recorded Confirmed Last Taken Type Gabapentin [Neurontin] 90 mg PO Q8HR 04/22/15 04/22/15 04/21/15 History ALPRAZolam [Xanax TAB] 1 mg PO TID PRN #30 tablet 03/28/16 Unknown Rx Albuterol Sulfate [Ventolin HFA] 2 puff IH Q4H PRN #1 [id number] 03/28/16 Unknown Rx Ciprofloxacin HCl [Ciprofloxacin 500 mg PO Q12HR #30 tab 03/28/16 Unknown Rx TAB] Citalopram [celeXA] 10 mg PO QDAY #30 tablet 03/28/16 Unknown Rx Nicotine [Habitrol] 14 mg TD QDAY #30 patch 03/28/16 Unknown Rx Sitagliptin Phos/Metformin HCl 1 tab PO QDAY #30 tbmp.24hr 03/28/16 Unknown Rx [Janumet XR 100-1,000 mg] oxyCODONE /ACETAMINOPHEN [Percocet 1 tab PO Q6H PRN #60 tablet 03/28/16 Unknown Rx 5/325 mg] Active Medications: Generic Name Dose Route Start Last Admin Trade Name Freq PRN Reason Stop Dose Admin Acetaminophen 650 mg 10/11/18 04:04 10/21/18 22:21 Tylenol PO 650 mg Q4H PRN Administration Pain MILD(1-3)/Fever >100.5/HOLLINS Albuterol 2.5 mg 10/19/18 00:54 Proventil IH Q4HRT PRN Shortness Of Breath Albuterol/Ipratropium 1 ampul 10/19/18 08:00 10/29/18 19:42 Duoneb *Not For Prn Use* IH Not Given TIDRT ISAAC Alprazolam 1 mg 10/20/18 13:06 10/30/18 04:34 Xanax PO 1 mg TID PRN Administration Anxiety Citalopram Hydrobromide 10 mg 10/21/18 10:00 10/29/18 09:11 Celexa PO 10 mg QDAY ISAAC Administration Dextrose 0 ml 10/11/18 03:57 10/11/18 10:18 D50w (25gm) Syringe IV 10 ml PRN PRN Administration Hypoglycemia Famotidine 20 mg 10/15/18 10:00 10/30/18 09:32 Pepcid PO 20 mg BID ISAAC Administration Hydromorphone HCl 1 mg 10/28/18 09:07 10/30/18 02:28 Dilaudid IV 1 mg Q4H PRN Administration Pain , Severe (7-10) Hydromorphone HCl 0.5 mg 10/29/18 18:58 10/29/18 18:40 Dilaudid IV 0.5 mg Q10MIN PRN Administration Pain , Severe (7-10) Heparin Sodium/Sodium Chloride 25,000 unit in 500 mls @ 18 mls/hr 10/27/18 14:00 10/30/18 02:05 Heparin/ 0.45% Nacl-25,000 Unit/500 Ml IV 1,100 units/hr TITR ISAAC 22 mls/hr Titration Protocol 900 UNITS/HR Lactated Ringer's 1,000 mls @ 75 mls/hr 10/29/18 13:00 10/29/18 22:10 Lactated Ringers IV 75 mls/hr DIRECT ISAAC Administration Sodium Chloride 250 mls @ 999 mls/hr 10/30/18 09:30 10/30/18 09:31 Nacl 0.9% 250ml IV 10/30/18 09:45 999 mls/hr ONCE ONE Administration Sodium Chloride 250 mls @ 999 mls/hr 10/30/18 09:45 Nacl 0.9% 250ml IV 10/30/18 10:00 ONCE ONE Insulin Human Regular 0 units 10/17/18 11:30 10/30/18 09:33 Humulin R SUB-Q 3 units ACHS ISAAC Administration Protocol Metoprolol Tartrate 25 mg 10/18/18 22:00 10/30/18 09:31 Lopressor PO Not Given BID [facility] Metoprolol Tartrate 2.5 mg 10/18/18 18:51 10/18/18 22:19 Lopressor IV 2.5 mg Q6H PRN Administration Tachyarrhythmias Naloxone HCl 0.1 mg 10/29/18 16:03 Narcan 0.4 Mg/1 Ml IV Q2MIN PRN Res Rate </= 8 or 02 SAT < 92% Ondansetron HCl 4 mg 10/11/18 04:04 Zofran IV Q8H PRN Nausea And Vomiting Oxycodone/Acetaminophen 1 tab 10/18/18 13:45 10/30/18 02:41 Percocet 5/325 PO 1 tab Q6H PRN Administration Pain, Moderate (4-6) Quetiapine Fumarate 200 mg 10/14/18 22:00 10/29/18 21:58 Seroquel PO 200 mg QHS ISAAC Administration
[2018-10-30] MEDS: DUONEB *Not for PRN Use IH SCH ×3 (09:43→20:16)
[2018-10-30] MEDS ORDERED: NACL 0.9% 1000 ML 1,000 ML IV ONE (11:00)
[2018-10-30] MEDS ORDERED: NACL 0.9% 500 ML 500 ML IV ONE (11:00)
--- NOTE | 2018-10-30 12:19 | Progress Note ---
Assessment and Plan Acute hypoxemic respiratory failure, on mechanical ventilator support. Drug overdose. Acute chronic obstructive pulmonary disease exacerbation. Severe PVD Witnessed seizure en route. Acute kidney injury. Leukocytosis. Hypercapnia. Hyperkalemia. Metabolic acidosis. Lactic acidosis. Non-ST elevation myocardial infarction. Elevated serum transaminases. - continue IV heparin for PVD (prn H&H) - bolus 500 mls IVNS then run at 75 mls/hr X 1 liter (re; H/O CHF) - begin Levophed if persistent hypotension - discontinue edmondson catheter - stopped LR - continue bronchodilators with pulmonary hygiene per RT - continue GI & VTE prophylaxis - prn supplemental oxygen to keep O2 sats 88-90% - Lung protective strategies - Daily ABGs/CXR for now - VAP bundle addressed - follow clinically off AB's - Aspiration precautions - Accuchecks with glycemic control. Target glucose of 140-180 mg/dL - Maintenance of sleep -wake cycle - Mobility as tolerated by hemodynamics - Influenza and pneumonia vaccination per protocol ... observe overnight in ICU re: hypotension ..care plan discussed at length with RN/RT at the bedside ..discussed in ICU-IDT rounds PROGNOSIS: GUARDED CONDITION: CRITICAL CODE STATUS: FULL CODE The high probability of a clinically significant, sudden or life-threatening deterioration of the [respiratory, neurology, renal] system(s) required my full and direct attention, intervention and personal management. The aggregate critical care time was [34] minutes without overlap. Time includes spent on; [x] Data Review and interpretation [x] Patient assessment and monitoring of vital signs [x] Documentation [x] Medication orders and management Subjective Date of service: 10/30/18 Principal diagnosis: Ac hypercapnic hypoxemic Resp failure; Severe PVD; AE-COPD; NINOSKA; Seizures Interval history: Patient is seen today for: Acute hypoxemic respiratory failure, on mechanical ventilator support; Drug overdose; Acute chronic obstructive pulmonary disease exacerbation; Witnessed seizure en route; Acute kidney injury; Leukocytosis; Hypercapnia. 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; Hypotensive at time of my exam afetr initial IV LR bolus; denies acute cvhest pains or palpitations; off supplemental oxygen; No N/V/F/C and tolerating mechanical soft diet Objective Vital Signs - 12hr 10/30/18 10/30/18 10/30/18 00:31 01:01 01:31 Temperature Pulse Rate 119 H 117 H 112 H Pulse Rate [ Bilateral] Respiratory 31 H 37 H 29 H Rate Respiratory Rate [Bilateral ] Blood Pressure 98/46 110/66 110/66 O2 Sat by Pulse 96 95 97 Oximetry 10/30/18 10/30/18 10/30/18 02:01 02:28 02:31 Temperature Pulse Rate 115 H 102 H Pulse Rate [ Bilateral] Respiratory 29 H 22 27 H Rate Respiratory Rate [Bilateral ] Blood Pressure 100/45 110/66 O2 Sat by Pulse 97 99 Oximetry 10/30/18 10/30/18 10/30/18 03:00 03:20 03:31 Temperature 98.8 F Pulse Rate 96 H 98 H Pulse Rate [ Bilateral] Respiratory 27 H 32 H Rate Respiratory Rate [Bilateral ] Blood Pressure 96/49 77/47 O2 Sat by Pulse 99 99 Oximetry 10/30/18 10/30/18 10/30/18 03:32 04:00 04:30 Temperature 98.2 F Pulse Rate 92 H 91 H Pulse Rate [ Bilateral] Respiratory 30 H 29 H Rate Respiratory Rate [Bilateral ] Blood Pressure 95/53 93/56 O2 Sat by Pulse 99 100 Oximetry 10/30/18 10/30/18 10/30/18 05:00 05:30 06:00 Temperature Pulse Rate 91 H 90 90 Pulse Rate [ Bilateral] Respiratory 29 H 29 H 29 H Rate Respiratory Rate [Bilateral ] Blood Pressure 97/60 97/57 93/56 O2 Sat by Pulse 99 98 100 Oximetry 10/30/18 10/30/18 10/30/18 06:30 07:00 08:00 Temperature 97.9 F Pulse Rate 96 H 87 Pulse Rate [ Bilateral] Respiratory 18 27 H Rate Respiratory Rate [Bilateral ] Blood Pressure 82/41 93/59 O2 Sat by Pulse 96 99 Oximetry 10/30/18 10/30/18 10/30/18 09:31 10:00 10:10 Temperature Pulse Rate 81 Pulse Rate [ 80 Bilateral] Respiratory Rate Respiratory 18 Rate [Bilateral ] Blood Pressure 81/45 O2 Sat by Pulse 98 Oximetry 10/30/18 10:18 Temperature Pulse Rate Pulse Rate [ 80 Bilateral] Respiratory Rate Respiratory 18 Rate [Bilateral ] Blood Pressure O2 Sat by Pulse Oximetry Constitutional: no acute distress, asleep, other (middle aged but chronically ill looking CM; Atraumatic) Eyes: non-icteric ENT: oropharynx moist, other (mallampati 2) Neck: supple, no lymphadenopathy, no JVD Effort: normal Ascultation: Bilateral: diminished breath sounds, rhonchi (scant) Percussion: Bilateral: not dull Cardiovascular: irregular rhythm, other (No R/M) Gastrointestinal: normoactive bowel sounds, soft, non-tender, non-distended Integumentary: other (poor turgor) Extremities: no edema, other (digital gangrene of right foot; s/p Left BKA) Neurologic: normal mental status, pupils equal and round, other (Left hemiparesis, improving) Psychiatric: mood appropriate, affect normal CBC and BMP: 10/30/18 04:22 10/30/18 04:22 ABG, PT/INR, D-dimer: ABG POC ABG pH 7.393 (7.35-7.45) 10/16/18 12:51 POC ABG pCO2 48.9 (35-45) H 10/16/18 12:51 POC ABG pO2 92 (80-105) 10/16/18 12:51 POC ABG HCO3 29.8 (22-26 mml/L) 10/16/18 12:51 POC ABG Total CO2 31 (23-27mmol/L) 10/16/18 12:51 POC ABG O2 Sat 97 10/16/18 12:51 PT/INR, D-dimer PT 13.9 Sec. (12.2-14.9) 10/29/18 07:11 INR 1.01 (0.87-1.13) 10/29/18 07:11 Abnormal lab findings: Abnormal Labs 10/11/18 10/11/18 10/11/18 00:16 00:16 00:16 WBC 20.1 H RBC Hgb Hct MCV 98 H MCHC RDW 15.4 H Plt Count Lymph % (Auto) Starr % (Auto) Starr # Seg Neutrophils % Seg Neuts % (Manual) Lymphocytes % (Manual) 5.0 L Monocytes % (Manual) 25.0 H Seg Neutrophils # Seg Neutrophils # Man 9.2 H Lymphocytes # (Manual) 1.0 L Monocytes # (Manual) 5.0 H APTT Heparin Anti-Xa Level POC ABG pH POC ABG pCO2 POC ABG pO2 Sodium Potassium 5.8 H Chloride Carbon Dioxide 17 L BUN Creatinine 2.2 H Glucose 348 H POC Glucose Lactic Acid 13.70 H* Calcium 7.7 L Phosphorus Total Bilirubin 1.50 H AST 179 H ALT 110 H Total Creatine Kinase 324 H CK-MB (CK-2) Troponin T 0.257 H* Total Protein 5.9 L Albumin 2.9 L HDL Cholesterol 19 L Salicylates Acetaminophen Crossmatch 10/11/18 10/11/18 10/11/18 00:16 00:16 01:21 WBC RBC Hgb Hct MCV MCHC RDW Plt Count Lymph % (Auto) Starr % (Auto) Starr # Seg Neutrophils % Seg Neuts % (Manual) Lymphocytes % (Manual) Monocytes % (Manual) Seg Neutrophils # Seg Neutrophils # Man Lymphocytes # (Manual) Monocytes # (Manual) APTT Heparin Anti-Xa Level POC ABG pH 7.110 L POC ABG pCO2 50.3 H POC ABG pO2 65 L Sodium Potassium Chloride Carbon Dioxide BUN Creatinine Glucose POC Glucose Lactic Acid Calcium Phosphorus Total Bilirubin AST ALT Total Creatine Kinase CK-MB (CK-2) Troponin T Total Protein Albumin HDL Cholesterol Salicylates < 0.3 L Acetaminophen < 5.0 L Crossmatch 10/11/18 10/11/18 10/11/18 01:22 03:27 04:14 WBC RBC Hgb Hct MCV MCHC RDW Plt Count Lymph % (Auto) Starr % (Auto) Starr # Seg Neutrophils % Seg Neuts % (Manual) Lymphocytes % (Manual) Monocytes % (Manual) Seg Neutrophils # Seg Neutrophils # Man Lymphocytes # (Manual) Monocytes # (Manual) APTT Heparin Anti-Xa Level POC ABG pH POC ABG pCO2 POC ABG pO2 Sodium Potassium Chloride Carbon Dioxide BUN Creatinine Glucose POC Glucose Lactic Acid 8.50 H* 4.10 H* Calcium Phosphorus 4.90 H Total Bilirubin AST ALT Total Creatine Kinase CK-MB (CK-2) Troponin T Total Protein Albumin HDL Cholesterol Salicylates Acetaminophen Crossmatch 10/11/18 10/11/18 10/11/18 04:14 04:14 04:14 WBC RBC Hgb Hct MCV MCHC RDW Plt Count Lymph % (Auto) Starr % (Auto) Starr # Seg Neutrophils % Seg Neuts % (Manual) Lymphocytes % (Manual) Monocytes % (Manual) Seg Neutrophils # Seg Neutrophils # Man Lymphocytes # (Manual) Monocytes # (Manual) APTT Heparin Anti-Xa Level POC ABG pH POC ABG pCO2 POC ABG pO2 Sodium Potassium 5.6 H Chloride Carbon Dioxide 19 L BUN Creatinine 1.6 H Glucose 329 H POC Glucose 328 H Lactic Acid Calcium 7.3 L Phosphorus Total Bilirubin AST ALT Total Creatine Kinase CK-MB (CK-2) Troponin T 1.130 H* D Total Protein Albumin HDL Cholesterol Salicylates Acetaminophen Crossmatch 10/11/18 10/11/18 10/11/18 05:10 05:32 05:58 WBC RBC Hgb Hct MCV MCHC RDW Plt Count Lymph % (Auto) Starr % (Auto) Starr # Seg Neutrophils % Seg Neuts % (Manual) Lymphocytes % (Manual) Monocytes % (Manual) Seg Neutrophils # Seg Neutrophils # Man Lymphocytes # (Manual) Monocytes # (Manual) APTT Heparin Anti-Xa Level POC ABG pH 7.259 L POC ABG pCO2 45.6 H POC ABG pO2 Sodium Potassium Chloride 108.6 H Carbon Dioxide 20 L BUN Creatinine 1.8 H Glucose 269 H POC Glucose 273 H Lactic Acid Calcium 7.0 L Phosphorus Total Bilirubin AST ALT Total Creatine Kinase CK-MB (CK-2) Troponin T Total Protein Albumin HDL Cholesterol Salicylates Acetaminophen Crossmatch 10/11/18 10/11/18 10/11/18 05:58 06:39 07:00 WBC RBC Hgb Hct MCV MCHC RDW Plt Count Lymph % (Auto) Starr % (Auto) Starr # Seg Neutrophils % Seg Neuts % (Manual) Lymphocytes % (Manual) Monocytes % (Manual) Seg Neutrophils # Seg Neutrophils # Man Lymphocytes # (Manual) Monocytes # (Manual) APTT Heparin Anti-Xa Level POC ABG pH POC ABG pCO2 POC ABG pO2 Sodium Potassium Chloride Carbon Dioxide BUN Creatinine Glucose POC Glucose 247 H Lactic Acid 3.20 H* 3.30 H* Calcium Phosphorus Total Bilirubin AST ALT Total Creatine Kinase CK-MB (CK-2) Troponin T Total Protein Albumin HDL Cholesterol Salicylates Acetaminophen Crossmatch 10/11/18 10/11/18 10/11/18 07:00 07:30 07:36 WBC RBC Hgb Hct MCV MCHC RDW Plt Count Lymph % (Auto) Starr % (Auto) Starr # Seg Neutrophils % Seg Neuts % (Manual) Lymphocytes % (Manual) Monocytes % (Manual) Seg Neutrophils # Seg Neutrophils # Man Lymphocytes # (Manual) Monocytes # (Manual) APTT Heparin Anti-Xa Level POC ABG pH POC ABG pCO2 POC ABG pO2 Sodium 146 H Potassium Chloride 112.1 H Carbon Dioxide 21 L BUN Creatinine 1.6 H Glucose 218 H POC Glucose Lactic Acid 3.20 H* Calcium 7.0 L Phosphorus Total Bilirubin AST ALT Total Creatine Kinase CK-MB (CK-2) Troponin T 1.020 H* Total Protein Albumin HDL Cholesterol Salicylates Acetaminophen Crossmatch 10/11/18 10/11/18 10/11/18 07:43 08:29 08:29 WBC RBC Hgb 16.2 H Hct 49.9 H D MCV MCHC RDW Plt Count Lymph % (Auto) Starr % (Auto) Starr # Seg Neutrophils % Seg Neuts % (Manual) Lymphocytes % (Manual) Monocytes % (Manual) Seg Neutrophils # Seg Neutrophils # Man Lymphocytes # (Manual) Monocytes # (Manual) APTT Heparin Anti-Xa Level POC ABG pH POC ABG pCO2 POC ABG pO2 Sodium Potassium Chloride Carbon Dioxide BUN Creatinine Glucose POC Glucose 174 H Lactic Acid 3.90 H* Calcium Phosphorus Total Bilirubin AST ALT Total Creatine Kinase CK-MB (CK-2) Troponin T Total Protein Albumin HDL Cholesterol Salicylates Acetaminophen Crossmatch 10/11/18 10/11/18 10/11/18 08:29 08:42 11:05 WBC RBC Hgb Hct MCV MCHC RDW Plt Count Lymph % (Auto) Starr % (Auto) Starr # Seg Neutrophils % Seg Neuts % (Manual) Lymphocytes % (Manual) Monocytes % (Manual) Seg Neutrophils # Seg Neutrophils # Man Lymphocytes # (Manual) Monocytes # (Manual) APTT 24.1 L Heparin Anti-Xa Level POC ABG pH POC ABG pCO2 POC ABG pO2 Sodium 147 H Potassium Chloride 113.3 H Carbon Dioxide 21 L BUN Creatinine 1.7 H Glucose 119 H POC Glucose 164 H Lactic Acid Calcium 7.7 L Phosphorus Total Bilirubin AST ALT Total Creatine Kinase CK-MB (CK-2) Troponin T Total Protein Albumin HDL Cholesterol Salicylates Acetaminophen Crossmatch 10/11/18 10/11/18 10/11/18 11:05 11:06 12:30 WBC RBC Hgb Hct MCV MCHC RDW Plt Count Lymph % (Auto) Starr % (Auto) Starr # Seg Neutrophils % Seg Neuts % (Manual) Lymphocytes % (Manual) Monocytes % (Manual) Seg Neutrophils # Seg Neutrophils # Man Lymphocytes # (Manual) Monocytes # (Manual) APTT Heparin Anti-Xa Level POC ABG pH POC ABG pCO2 POC ABG pO2 Sodium 148 H Potassium Chloride 113.4 H Carbon Dioxide 21 L BUN Creatinine 1.6 H Glucose 119 H POC Glucose 116 H Lactic Acid 3.20 H* Calcium 7.5 L Phosphorus Total Bilirubin AST ALT Total Creatine Kinase CK-MB (CK-2) Troponin T Total Protein Albumin HDL Cholesterol Salicylates Acetaminophen Crossmatch 10/11/18 10/11/18 10/11/18 12:30 13:16 13:25 WBC RBC Hgb Hct MCV MCHC RDW Plt Count Lymph % (Auto) Starr % (Auto) Starr # Seg Neutrophils % Seg Neuts % (Manual) Lymphocytes % (Manual) Monocytes % (Manual) Seg Neutrophils # Seg Neutrophils # Man Lymphocytes # (Manual) Monocytes # (Manual) APTT Heparin Anti-Xa Level POC ABG pH 7.247 L POC ABG pCO2 48.4 H POC ABG pO2 Sodium Potassium Chloride Carbon Dioxide BUN Creatinine Glucose POC Glucose 112 H Lactic Acid 2.70 H* Calcium Phosphorus Total Bilirubin AST ALT Total Creatine Kinase CK-MB (CK-2) Troponin T Total Protein Albumin HDL Cholesterol Salicylates Acetaminophen Crossmatch 10/11/18 10/11/18 10/11/18 14:41 15:27 16:13 WBC RBC Hgb Hct MCV MCHC RDW Plt Count Lymph % (Auto) Starr % (Auto) Starr # Seg Neutrophils % Seg Neuts % (Manual) Lymphocytes % (Manual) Monocytes % (Manual) Seg Neutrophils # Seg Neutrophils # Man Lymphocytes # (Manual) Monocytes # (Manual) APTT Heparin Anti-Xa Level POC ABG pH POC ABG pCO2 POC ABG pO2 Sodium Potassium Chloride Carbon Dioxide BUN Creatinine Glucose POC Glucose 127 H 141 H 134 H Lactic Acid Calcium Phosphorus Total Bilirubin AST ALT Total Creatine Kinase CK-MB (CK-2) Troponin T Total Protein Albumin HDL Cholesterol Salicylates Acetaminophen Crossmatch 10/11/18 10/11/18 10/11/18 17:18 18:23 19:38 WBC RBC Hgb Hct MCV MCHC RDW Plt Count Lymph % (Auto) Starr % (Auto) Starr # Seg Neutrophils % Seg Neuts % (Manual) Lymphocytes % (Manual) Monocytes % (Manual) Seg Neutrophils # Seg Neutrophils # Man Lymphocytes # (Manual) Monocytes # (Manual) APTT Heparin Anti-Xa Level POC ABG pH POC ABG pCO2 POC ABG pO2 Sodium 148 H Potassium Chloride 112.7 H Carbon Dioxide BUN 23 H Creatinine Glucose 143 H POC Glucose 132 H 129 H Lactic Acid Calcium 7.9 L Phosphorus Total Bilirubin AST ALT Total Creatine Kinase CK-MB (CK-2) Troponin T Total Protein Albumin HDL Cholesterol Salicylates Acetaminophen Crossmatch 10/11/18 10/11/18 10/11/18 20:19 20:36 21:01 WBC RBC Hgb Hct MCV MCHC RDW Plt Count Lymph % (Auto) Starr % (Auto) Starr # Seg Neutrophils % Seg Neuts % (Manual) Lymphocytes % (Manual) Monocytes % (Manual) Seg Neutrophils # Seg Neutrophils # Man Lymphocytes # (Manual) Monocytes # (Manual) APTT Heparin Anti-Xa Level POC ABG pH 7.281 L POC ABG pCO2 POC ABG pO2 Sodium Potassium Chloride Carbon Dioxide BUN Creatinine Glucose POC Glucose 129 H 151 H Lactic Acid Calcium Phosphorus Total Bilirubin AST ALT Total Creatine Kinase CK-MB (CK-2) Troponin T Total Protein Albumin HDL Cholesterol Salicylates Acetaminophen Crossmatch 10/11/18 10/11/18 10/12/18 22:04 23:15 01:18 WBC RBC Hgb Hct MCV MCHC RDW Plt Count Lymph % (Auto) Starr % (Auto) Starr # Seg Neutrophils % Seg Neuts % (Manual) Lymphocytes % (Manual) Monocytes % (Manual) Seg Neutrophils # Seg Neutrophils # Man Lymphocytes # (Manual) Monocytes # (Manual) APTT Heparin Anti-Xa Level POC ABG pH POC ABG pCO2 POC ABG pO2 Sodium Potassium Chloride Carbon Dioxide BUN Creatinine Glucose POC Glucose 147 H 143 H 158 H Lactic Acid Calcium Phosphorus Total Bilirubin AST ALT Total Creatine Kinase CK-MB (CK-2) Troponin T Total Protein Albumin HDL Cholesterol Salicylates Acetaminophen Crossmatch 10/12/18 10/12/18 10/12/18 02:13 03:18 04:04 WBC RBC Hgb Hct MCV MCHC RDW Plt Count Lymph % (Auto) Starr % (Auto) Starr # Seg Neutrophils % Seg Neuts % (Manual) Lymphocytes % (Manual) Monocytes % (Manual) Seg Neutrophils # Seg Neutrophils # Man Lymphocytes # (Manual) Monocytes # (Manual) APTT Heparin Anti-Xa Level POC ABG pH POC ABG pCO2 POC ABG pO2 Sodium 147 H Potassium Chloride 111.1 H Carbon Dioxide BUN 30 H Creatinine 2.0 H Glucose 154 H POC Glucose 148 H 142 H Lactic Acid Calcium 8.1 L Phosphorus Total Bilirubin AST 269 H ALT 204 H Total Creatine Kinase 3647 H CK-MB (CK-2) 48.3 H Troponin T 2.230 H* D Total Protein 5.8 L Albumin 2.6 L HDL Cholesterol Salicylates Acetaminophen Crossmatch 10/12/18 10/12/18 10/12/18 04:04 04:08 04:19 WBC 24.4 H RBC Hgb Hct MCV MCHC RDW Plt Count Lymph % (Auto) Starr % (Auto) Starr # Seg Neutrophils % Seg Neuts % (Manual) 32.0 L Lymphocytes % (Manual) Monocytes % (Manual) 8.0 H Seg Neutrophils # Seg Neutrophils # Man 7.8 H Lymphocytes # (Manual) Monocytes # (Manual) 2.0 H APTT Heparin Anti-Xa Level POC ABG pH 7.317 L POC ABG pCO2 49.3 H POC ABG pO2 Sodium Potassium Chloride Carbon Dioxide BUN Creatinine Glucose POC Glucose 143 H Lactic Acid Calcium Phosphorus Total Bilirubin AST ALT Total Creatine Kinase CK-MB (CK-2) Troponin T Total Protein Albumin HDL Cholesterol Salicylates Acetaminophen Crossmatch 10/12/18 10/12/18 10/12/18 05:29 06:52 08:09 WBC RBC Hgb Hct MCV MCHC RDW Plt Count Lymph % (Auto) Starr % (Auto) Starr # Seg Neutrophils % Seg Neuts % (Manual) Lymphocytes % (Manual) Monocytes % (Manual) Seg Neutrophils # Seg Neutrophils # Man Lymphocytes # (Manual) Monocytes # (Manual) APTT Heparin Anti-Xa Level POC ABG pH 7.322 L POC ABG pCO2 46.5 H POC ABG pO2 Sodium Potassium Chloride Carbon Dioxide BUN Creatinine Glucose POC Glucose 196 H 226 H Lactic Acid Calcium Phosphorus Total Bilirubin AST ALT Total Creatine Kinase CK-MB (CK-2) Troponin T Total Protein Albumin HDL Cholesterol Salicylates Acetaminophen Crossmatch 10/12/18 10/12/18 10/12/18 08:38 10:03 15:50 WBC RBC Hgb Hct MCV MCHC RDW Plt Count Lymph % (Auto) Starr % (Auto) Starr # Seg Neutrophils % Seg Neuts % (Manual) Lymphocytes % (Manual) Monocytes % (Manual) Seg Neutrophils # Seg Neutrophils # Man Lymphocytes # (Manual) Monocytes # (Manual) APTT Heparin Anti-Xa Level POC ABG pH POC ABG pCO2 POC ABG pO2 Sodium Potassium Chloride Carbon Dioxide BUN Creatinine Glucose POC Glucose 138 H 148 H 221 H Lactic Acid Calcium Phosphorus Total Bilirubin AST ALT Total Creatine Kinase CK-MB (CK-2) Troponin T Total Protein Albumin HDL Cholesterol Salicylates Acetaminophen Crossmatch 10/12/18 10/12/18 10/12/18 18:39 20:56 21:34 WBC RBC Hgb Hct MCV MCHC RDW Plt Count Lymph % (Auto) Starr % (Auto) Starr # Seg Neutrophils % Seg Neuts % (Manual) Lymphocytes % (Manual) Monocytes % (Manual) Seg Neutrophils # Seg Neutrophils # Man Lymphocytes # (Manual) Monocytes # (Manual) APTT Heparin Anti-Xa Level POC ABG pH 7.336 L POC ABG pCO2 46.0 H POC ABG pO2 Sodium Potassium Chloride Carbon Dioxide BUN Creatinine Glucose POC Glucose 255 H 260 H Lactic Acid Calcium Phosphorus Total Bilirubin AST ALT Total Creatine Kinase CK-MB (CK-2) Troponin T Total Protein Albumin HDL Cholesterol Salicylates Acetaminophen Crossmatch 10/13/18 10/13/18 10/13/18 02:29 05:09 05:40 WBC 17.0 H RBC Hgb Hct MCV MCHC RDW Plt Count Lymph % (Auto) Starr % (Auto) 9.2 H Starr # 1.6 H Seg Neutrophils % 76.2 H Seg Neuts % (Manual) Lymphocytes % (Manual) Monocytes % (Manual) Seg Neutrophils # 12.9 H Seg Neutrophils # Man Lymphocytes # (Manual) Monocytes # (Manual) APTT Heparin Anti-Xa Level POC ABG pH POC ABG pCO2 POC ABG pO2 Sodium Potassium Chloride Carbon Dioxide BUN Creatinine Glucose POC Glucose 216 H 249 H Lactic Acid Calcium Phosphorus Total Bilirubin AST ALT Total Creatine Kinase CK-MB (CK-2) Troponin T Total Protein Albumin HDL Cholesterol Salicylates Acetaminophen Crossmatch 10/13/18 10/13/18 10/13/18 05:40 05:40 09:46 WBC RBC Hgb Hct MCV MCHC RDW Plt Count Lymph % (Auto) Starr % (Auto) Starr # Seg Neutrophils % Seg Neuts % (Manual) Lymphocytes % (Manual) Monocytes % (Manual) Seg Neutrophils # Seg Neutrophils # Man Lymphocytes # (Manual) Monocytes # (Manual) APTT Heparin Anti-Xa Level POC ABG pH POC ABG pCO2 POC ABG pO2 Sodium 146 H Potassium Chloride 109.8 H Carbon Dioxide BUN 35 H Creatinine Glucose 245 H POC Glucose 235 H Lactic Acid Calcium 7.9 L Phosphorus Total Bilirubin AST ALT Total Creatine Kinase CK-MB (CK-2) Troponin T 0.952 H* D Total Protein Albumin HDL Cholesterol Salicylates Acetaminophen Crossmatch 10/13/18 10/13/18 10/13/18 13:58 16:15 17:30 WBC RBC Hgb Hct MCV MCHC RDW Plt Count Lymph % (Auto) Starr % (Auto) Starr # Seg Neutrophils % Seg Neuts % (Manual) Lymphocytes % (Manual) Monocytes % (Manual) Seg Neutrophils # Seg Neutrophils # Man Lymphocytes # (Manual) Monocytes # (Manual) APTT Heparin Anti-Xa Level POC ABG pH POC ABG pCO2 51.2 H POC ABG pO2 Sodium Potassium Chloride Carbon Dioxide BUN Creatinine Glucose POC Glucose 139 H Lactic Acid Calcium Phosphorus Total Bilirubin AST ALT Total Creatine Kinase CK-MB (CK-2) Troponin T 0.816 H* Total Protein Albumin HDL Cholesterol Salicylates Acetaminophen Crossmatch 10/13/18 10/14/18 10/14/18 21:25 01:49 04:52 WBC RBC Hgb Hct MCV MCHC RDW Plt Count Lymph % (Auto) Starr % (Auto) Starr # Seg Neutrophils % Seg Neuts % (Manual) Lymphocytes % (Manual) Monocytes % (Manual) Seg Neutrophils # Seg Neutrophils # Man Lymphocytes # (Manual) Monocytes # (Manual) APTT Heparin Anti-Xa Level POC ABG pH POC ABG pCO2 56.0 H POC ABG pO2 Sodium Potassium Chloride Carbon Dioxide BUN Creatinine Glucose POC Glucose 205 H 166 H Lactic Acid Calcium Phosphorus Total Bilirubin AST ALT Total Creatine Kinase CK-MB (CK-2) Troponin T Total Protein Albumin HDL Cholesterol Salicylates Acetaminophen Crossmatch 10/14/18 10/14/18 10/14/18 05:32 09:45 09:45 WBC RBC Hgb 11.4 L Hct 34.5 L MCV MCHC RDW Plt Count 139 L Lymph % (Auto) Starr % (Auto) Starr # Seg Neutrophils % Seg Neuts % (Manual) Lymphocytes % (Manual) Monocytes % (Manual) Seg Neutrophils # Seg Neutrophils # Man Lymphocytes # (Manual) Monocytes # (Manual) APTT Heparin Anti-Xa Level POC ABG pH POC ABG pCO2 POC ABG pO2 Sodium 148 H Potassium Chloride 107.3 H Carbon Dioxide 34 H D BUN Creatinine 0.7 L D Glucose 191 H POC Glucose 164 H Lactic Acid Calcium 7.3 L Phosphorus Total Bilirubin AST 110 H ALT 91 H Total Creatine Kinase CK-MB (CK-2) Troponin T Total Protein 4.9 L Albumin 2.0 L HDL Cholesterol Salicylates Acetaminophen Crossmatch 10/14/18 10/14/18 10/14/18 10:54 12:20 18:30 WBC RBC Hgb Hct MCV MCHC RDW Plt Count Lymph % (Auto) Starr % (Auto) Starr # Seg Neutrophils % Seg Neuts % (Manual) Lymphocytes % (Manual) Monocytes % (Manual) Seg Neutrophils # Seg Neutrophils # Man Lymphocytes # (Manual) Monocytes # (Manual) APTT Heparin Anti-Xa Level POC ABG pH POC ABG pCO2 POC ABG pO2 Sodium Potassium Chloride Carbon Dioxide BUN Creatinine Glucose POC Glucose 173 H 158 H 108 H Lactic Acid Calcium Phosphorus Total Bilirubin AST ALT Total Creatine Kinase CK-MB (CK-2) Troponin T Total Protein Albumin HDL Cholesterol Salicylates Acetaminophen Crossmatch 10/14/18 10/15/18 10/15/18 21:54 02:12 04:19 WBC RBC Hgb Hct MCV MCHC RDW Plt Count Lymph % (Auto) Starr % (Auto) Starr # Seg Neutrophils % Seg Neuts % (Manual) Lymphocytes % (Manual) Monocytes % (Manual) Seg Neutrophils # Seg Neutrophils # Man Lymphocytes # (Manual) Monocytes # (Manual) APTT Heparin Anti-Xa Level POC ABG pH 7.491 H POC ABG pCO2 45.1 H POC ABG pO2 Sodium Potassium Chloride Carbon Dioxide BUN Creatinine Glucose POC Glucose 110 H 164 H Lactic Acid Calcium Phosphorus Total Bilirubin AST ALT Total Creatine Kinase CK-MB (CK-2) Troponin T Total Protein Albumin HDL Cholesterol Salicylates Acetaminophen Crossmatch 10/15/18 10/15/18 10/15/18 04:55 05:43 06:20 WBC RBC Hgb 11.7 L Hct 34.7 L MCV MCHC RDW Plt Count Lymph % (Auto) Starr % (Auto) Starr # Seg Neutrophils % Seg Neuts % (Manual) Lymphocytes % (Manual) Monocytes % (Manual) Seg Neutrophils # Seg Neutrophils # Man Lymphocytes # (Manual) Monocytes # (Manual) APTT Heparin Anti-Xa Level POC ABG pH POC ABG pCO2 47.3 H POC ABG pO2 78 L Sodium Potassium Chloride Carbon Dioxide BUN Creatinine Glucose POC Glucose 250 H Lactic Acid Calcium Phosphorus Total Bilirubin AST ALT Total Creatine Kinase CK-MB (CK-2) Troponin T Total Protein Albumin HDL Cholesterol Salicylates Acetaminophen Crossmatch 10/15/18 10/15/18 10/15/18 12:00 12:00 12:11 WBC RBC Hgb 11.5 L Hct 34.0 L MCV MCHC RDW Plt Count Lymph % (Auto) Starr % (Auto) Starr # Seg Neutrophils % Seg Neuts % (Manual) Lymphocytes % (Manual) Monocytes % (Manual) Seg Neutrophils # Seg Neutrophils # Man Lymphocytes # (Manual) Monocytes # (Manual) APTT Heparin Anti-Xa Level POC ABG pH POC ABG pCO2 POC ABG pO2 Sodium 147 H Potassium Chloride 108.5 H Carbon Dioxide BUN Creatinine 0.7 L Glucose 209 H POC Glucose 197 H Lactic Acid Calcium 7.3 L Phosphorus Total Bilirubin AST ALT Total Creatine Kinase CK-MB (CK-2) Troponin T Total Protein Albumin HDL Cholesterol Salicylates Acetaminophen Crossmatch 10/15/18 10/15/18 10/15/18 15:48 18:34 21:29 WBC RBC Hgb Hct MCV MCHC RDW Plt Count Lymph % (Auto) Starr % (Auto) Starr # Seg Neutrophils % Seg Neuts % (Manual) Lymphocytes % (Manual) Monocytes % (Manual) Seg Neutrophils # Seg Neutrophils # Man Lymphocytes # (Manual) Monocytes # (Manual) APTT Heparin Anti-Xa Level POC ABG pH POC ABG pCO2 POC ABG pO2 Sodium Potassium Chloride Carbon Dioxide BUN Creatinine Glucose POC Glucose 220 H 249 H 209 H Lactic Acid Calcium Phosphorus Total Bilirubin AST ALT Total Creatine Kinase CK-MB (CK-2) Troponin T Total Protein Albumin HDL Cholesterol Salicylates Acetaminophen Crossmatch 10/16/18 10/16/18 10/16/18 02:16 03:50 05:57 WBC RBC Hgb Hct MCV MCHC RDW Plt Count Lymph % (Auto) Starr % (Auto) Starr # Seg Neutrophils % Seg Neuts % (Manual) Lymphocytes % (Manual) Monocytes % (Manual) Seg Neutrophils # Seg Neutrophils # Man Lymphocytes # (Manual) Monocytes # (Manual) APTT Heparin Anti-Xa Level POC ABG pH POC ABG pCO2 55.8 H POC ABG pO2 Sodium Potassium Chloride Carbon Dioxide BUN Creatinine Glucose POC Glucose 110 H 209 H Lactic Acid Calcium Phosphorus Total Bilirubin AST ALT Total Creatine Kinase CK-MB (CK-2) Troponin T Total Protein Albumin HDL Cholesterol Salicylates Acetaminophen Crossmatch 10/16/18 10/16/18 10/16/18 10:51 12:51 15:01 WBC RBC Hgb Hct MCV MCHC RDW Plt Count Lymph % (Auto) Starr % (Auto) Starr # Seg Neutrophils % Seg Neuts % (Manual) Lymphocytes % (Manual) Monocytes % (Manual) Seg Neutrophils # Seg Neutrophils # Man Lymphocytes # (Manual) Monocytes # (Manual) APTT Heparin Anti-Xa Level POC ABG pH POC ABG pCO2 48.9 H POC ABG pO2 Sodium Potassium Chloride Carbon Dioxide BUN Creatinine Glucose POC Glucose 198 H 196 H Lactic Acid Calcium Phosphorus Total Bilirubin AST ALT Total Creatine Kinase CK-MB (CK-2) Troponin T Total Protein Albumin HDL Cholesterol Salicylates Acetaminophen Crossmatch 10/16/18 10/16/18 10/17/18 17:34 21:59 02:17 WBC RBC Hgb Hct MCV MCHC RDW Plt Count Lymph % (Auto) Starr % (Auto) Starr # Seg Neutrophils % Seg Neuts % (Manual) Lymphocytes % (Manual) Monocytes % (Manual) Seg Neutrophils # Seg Neutrophils # Man Lymphocytes # (Manual) Monocytes # (Manual) APTT Heparin Anti-Xa Level POC ABG pH POC ABG pCO2 POC ABG pO2 Sodium Potassium Chloride Carbon Dioxide BUN Creatinine Glucose POC Glucose 179 H 139 H 135 H Lactic Acid Calcium Phosphorus Total Bilirubin AST ALT Total Creatine Kinase CK-MB (CK-2) Troponin T Total Protein Albumin HDL Cholesterol Salicylates Acetaminophen Crossmatch 10/17/18 10/17/18 10/17/18 05:40 05:47 10:18 WBC RBC Hgb 11.3 L Hct 33.2 L MCV MCHC RDW Plt Count Lymph % (Auto) Starr % (Auto) Starr # Seg Neutrophils % Seg Neuts % (Manual) Lymphocytes % (Manual) Monocytes % (Manual) Seg Neutrophils # Seg Neutrophils # Man Lymphocytes # (Manual) Monocytes # (Manual) APTT Heparin Anti-Xa Level POC ABG pH POC ABG pCO2 POC ABG pO2 Sodium Potassium Chloride Carbon Dioxide BUN Creatinine Glucose POC Glucose 125 H 139 H Lactic Acid Calcium Phosphorus Total Bilirubin AST ALT Total Creatine Kinase CK-MB (CK-2) Troponin T Total Protein Albumin HDL Cholesterol Salicylates Acetaminophen Crossmatch 10/17/18 10/18/18 10/18/18 23:11 08:49 11:31 WBC RBC Hgb Hct MCV MCHC RDW Plt Count Lymph % (Auto) Starr % (Auto) Starr # Seg Neutrophils % Seg Neuts % (Manual) Lymphocytes % (Manual) Monocytes % (Manual) Seg Neutrophils # Seg Neutrophils # Man Lymphocytes # (Manual) Monocytes # (Manual) APTT Heparin Anti-Xa Level POC ABG pH POC ABG pCO2 POC ABG pO2 Sodium Potassium Chloride Carbon Dioxide BUN Creatinine Glucose POC Glucose 165 H 125 H 182 H Lactic Acid Calcium Phosphorus Total Bilirubin AST ALT Total Creatine Kinase CK-MB (CK-2) Troponin T Total Protein Albumin HDL Cholesterol Salicylates Acetaminophen Crossmatch 10/18/18 10/18/18 10/19/18 16:12 21:02 00:28 WBC RBC Hgb 11.4 L Hct 33.6 L MCV MCHC RDW Plt Count Lymph % (Auto) Starr % (Auto) 14.0 H Starr # 1.2 H Seg Neutrophils % Seg Neuts % (Manual) Lymphocytes % (Manual) Monocytes % (Manual) Seg Neutrophils # Seg Neutrophils # Man Lymphocytes # (Manual) Monocytes # (Manual) APTT Heparin Anti-Xa Level POC ABG pH POC ABG pCO2 POC ABG pO2 Sodium Potassium Chloride Carbon Dioxide BUN Creatinine Glucose POC Glucose 168 H 324 H Lactic Acid Calcium Phosphorus Total Bilirubin AST ALT Total Creatine Kinase CK-MB (CK-2) Troponin T Total Protein Albumin HDL Cholesterol Salicylates Acetaminophen Crossmatch 10/19/18 10/19/18 10/19/18 04:57 04:57 07:32 WBC RBC Hgb 11.7 L Hct 34.0 L MCV MCHC RDW Plt Count Lymph % (Auto) Starr % (Auto) Starr # Seg Neutrophils % Seg Neuts % (Manual) Lymphocytes % (Manual) Monocytes % (Manual) Seg Neutrophils # Seg Neutrophils # Man Lymphocytes # (Manual) Monocytes # (Manual) APTT Heparin Anti-Xa Level POC ABG pH POC ABG pCO2 POC ABG pO2 Sodium Potassium 3.5 L Chloride 108.6 H Carbon Dioxide BUN Creatinine 0.6 L Glucose POC Glucose 159 H Lactic Acid Calcium 7.9 L Phosphorus Total Bilirubin AST ALT Total Creatine Kinase CK-MB (CK-2) Troponin T Total Protein Albumin HDL Cholesterol Salicylates Acetaminophen Crossmatch 10/19/18 10/19/18 10/20/18 16:25 20:59 12:04 WBC RBC Hgb Hct MCV MCHC RDW Plt Count Lymph % (Auto) Starr % (Auto) Starr # Seg Neutrophils % Seg Neuts % (Manual) Lymphocytes % (Manual) Monocytes % (Manual) Seg Neutrophils # Seg Neutrophils # Man Lymphocytes # (Manual) Monocytes # (Manual) APTT Heparin Anti-Xa Level POC ABG pH POC ABG pCO2 POC ABG pO2 Sodium Potassium Chloride Carbon Dioxide BUN Creatinine Glucose POC Glucose 134 H 110 H 338 H Lactic Acid Calcium Phosphorus Total Bilirubin AST ALT Total Creatine Kinase CK-MB (CK-2) Troponin T Total Protein Albumin HDL Cholesterol Salicylates Acetaminophen Crossmatch 10/20/18 10/20/18 10/21/18 17:55 22:07 04:59 WBC RBC Hgb 11.6 L Hct 33.9 L MCV MCHC RDW Plt Count Lymph % (Auto) Starr % (Auto) 9.7 H Starr # 0.9 H Seg Neutrophils % 70.7 H Seg Neuts % (Manual) Lymphocytes % (Manual) Monocytes % (Manual) Seg Neutrophils # Seg Neutrophils # Man Lymphocytes # (Manual) Monocytes # (Manual) APTT Heparin Anti-Xa Level POC ABG pH POC ABG pCO2 POC ABG pO2 Sodium Potassium Chloride Carbon Dioxide BUN Creatinine Glucose POC Glucose 146 H 164 H Lactic Acid Calcium Phosphorus Total Bilirubin AST ALT Total Creatine Kinase CK-MB (CK-2) Troponin T Total Protein Albumin HDL Cholesterol Salicylates Acetaminophen Crossmatch 10/21/18 10/21/18 10/21/18 04:59 07:52 11:39 WBC RBC Hgb Hct MCV MCHC RDW Plt Count Lymph % (Auto) Starr % (Auto) Starr # Seg Neutrophils % Seg Neuts % (Manual) Lymphocytes % (Manual) Monocytes % (Manual) Seg Neutrophils # Seg Neutrophils # Man Lymphocytes # (Manual) Monocytes # (Manual) APTT Heparin Anti-Xa Level POC ABG pH POC ABG pCO2 POC ABG pO2 Sodium Potassium 3.5 L Chloride 107.1 H Carbon Dioxide BUN Creatinine 0.5 L Glucose 158 H POC Glucose 142 H 194 H Lactic Acid Calcium 7.5 L Phosphorus Total Bilirubin AST ALT Total Creatine Kinase CK-MB (CK-2) Troponin T Total Protein 5.6 L Albumin 2.0 L HDL Cholesterol Salicylates Acetaminophen Crossmatch 10/21/18 10/21/18 10/22/18 17:05 20:37 05:38 WBC RBC 3.48 L Hgb 10.8 L Hct 31.7 L MCV MCHC RDW Plt Count 458 H Lymph % (Auto) Starr % (Auto) 10.5 H Starr # Seg Neutrophils % Seg Neuts % (Manual) Lymphocytes % (Manual) Monocytes % (Manual) Seg Neutrophils # Seg Neutrophils # Man Lymphocytes # (Manual) Monocytes # (Manual) APTT Heparin Anti-Xa Level POC ABG pH POC ABG pCO2 POC ABG pO2 Sodium Potassium Chloride Carbon Dioxide BUN Creatinine Glucose POC Glucose 167 H 182 H Lactic Acid Calcium Phosphorus Total Bilirubin AST ALT Total Creatine Kinase CK-MB (CK-2) Troponin T Total Protein Albumin HDL Cholesterol Salicylates Acetaminophen Crossmatch 10/22/18 10/22/18 10/22/18 05:38 07:48 12:08 WBC RBC Hgb Hct MCV MCHC RDW Plt Count Lymph % (Auto) Starr % (Auto) Starr # Seg Neutrophils % Seg Neuts % (Manual) Lymphocytes % (Manual) Monocytes % (Manual) Seg Neutrophils # Seg Neutrophils # Man Lymphocytes # (Manual) Monocytes # (Manual) APTT Heparin Anti-Xa Level POC ABG pH POC ABG pCO2 POC ABG pO2 Sodium Potassium Chloride Carbon Dioxide BUN Creatinine 0.5 L Glucose 146 H POC Glucose 130 H 167 H Lactic Acid Calcium 7.8 L Phosphorus Total Bilirubin AST 41 H ALT Total Creatine Kinase CK-MB (CK-2) Troponin T Total Protein 5.5 L Albumin 2.1 L HDL Cholesterol Salicylates Acetaminophen Crossmatch 10/22/18 10/22/18 10/23/18 16:45 21:42 04:38 WBC RBC Hgb 11.7 L Hct 34.7 L MCV MCHC RDW Plt Count 523 H Lymph % (Auto) Starr % (Auto) 8.7 H Starr # Seg Neutrophils % 71.6 H Seg Neuts % (Manual) Lymphocytes % (Manual) Monocytes % (Manual) Seg Neutrophils # Seg Neutrophils # Man Lymphocytes # (Manual) Monocytes # (Manual) APTT Heparin Anti-Xa Level POC ABG pH POC ABG pCO2 POC ABG pO2 Sodium Potassium Chloride Carbon Dioxide BUN Creatinine Glucose POC Glucose 113 H 134 H Lactic Acid Calcium Phosphorus Total Bilirubin AST ALT Total Creatine Kinase CK-MB (CK-2) Troponin T Total Protein Albumin HDL Cholesterol Salicylates Acetaminophen Crossmatch 10/23/18 10/23/18 10/23/18 04:38 07:56 11:15 WBC RBC Hgb Hct MCV MCHC RDW Plt Count Lymph % (Auto) Starr % (Auto) Starr # Seg Neutrophils % Seg Neuts % (Manual) Lymphocytes % (Manual) Monocytes % (Manual) Seg Neutrophils # Seg Neutrophils # Man Lymphocytes # (Manual) Monocytes # (Manual) APTT Heparin Anti-Xa Level POC ABG pH POC ABG pCO2 POC ABG pO2 Sodium Potassium Chloride Carbon Dioxide BUN 7 L Creatinine 0.5 L Glucose 150 H POC Glucose 123 H 212 H Lactic Acid Calcium 8.0 L Phosphorus Total Bilirubin AST 55 H ALT Total Creatine Kinase CK-MB (CK-2) Troponin T Total Protein 6.2 L Albumin 2.3 L HDL Cholesterol Salicylates Acetaminophen Crossmatch 10/23/18 10/23/18 10/24/18 16:06 22:01 05:56 WBC 11.8 H RBC 3.64 L Hgb 11.2 L Hct 33.4 L MCV MCHC RDW Plt Count 564 H Lymph % (Auto) 11.3 L Starr % (Auto) Starr # Seg Neutrophils % 80.2 H Seg Neuts % (Manual) Lymphocytes % (Manual) Monocytes % (Manual) Seg Neutrophils # 9.4 H Seg Neutrophils # Man Lymphocytes # (Manual) Monocytes # (Manual) APTT Heparin Anti-Xa Level POC ABG pH POC ABG pCO2 POC ABG pO2 Sodium Potassium Chloride Carbon Dioxide BUN Creatinine Glucose POC Glucose 152 H 235 H Lactic Acid Calcium Phosphorus Total Bilirubin AST ALT Total Creatine Kinase CK-MB (CK-2) Troponin T Total Protein Albumin HDL Cholesterol Salicylates Acetaminophen Crossmatch 10/24/18 10/24/18 10/24/18 05:56 07:52 11:58 WBC RBC Hgb Hct MCV MCHC RDW Plt Count Lymph % (Auto) Starr % (Auto) Starr # Seg Neutrophils % Seg Neuts % (Manual) Lymphocytes % (Manual) Monocytes % (Manual) Seg Neutrophils # Seg Neutrophils # Man Lymphocytes # (Manual) Monocytes # (Manual) APTT Heparin Anti-Xa Level POC ABG pH POC ABG pCO2 POC ABG pO2 Sodium Potassium Chloride Carbon Dioxide BUN Creatinine 0.5 L Glucose 175 H POC Glucose 156 H 238 H Lactic Acid Calcium 8.0 L Phosphorus Total Bilirubin AST 44 H ALT Total Creatine Kinase CK-MB (CK-2) Troponin T Total Protein 6.2 L Albumin 2.4 L HDL Cholesterol Salicylates Acetaminophen Crossmatch 10/24/18 10/24/18 10/25/18 16:20 22:13 07:53 WBC RBC Hgb Hct MCV MCHC RDW Plt Count Lymph % (Auto) Starr % (Auto) Starr # Seg Neutrophils % Seg Neuts % (Manual) Lymphocytes % (Manual) Monocytes % (Manual) Seg Neutrophils # Seg Neutrophils # Man Lymphocytes # (Manual) Monocytes # (Manual) APTT Heparin Anti-Xa Level POC ABG pH POC ABG pCO2 POC ABG pO2 Sodium Potassium Chloride Carbon Dioxide BUN Creatinine Glucose POC Glucose 60 L 261 H 211 H Lactic Acid Calcium Phosphorus Total Bilirubin AST ALT Total Creatine Kinase CK-MB (CK-2) Troponin T Total Protein Albumin HDL Cholesterol Salicylates Acetaminophen Crossmatch 10/25/18 10/25/18 10/25/18 11:03 16:02 22:45 WBC RBC Hgb Hct MCV MCHC RDW Plt Count Lymph % (Auto) Starr % (Auto) Starr # Seg Neutrophils % Seg Neuts % (Manual) Lymphocytes % (Manual) Monocytes % (Manual) Seg Neutrophils # Seg Neutrophils # Man Lymphocytes # (Manual) Monocytes # (Manual) APTT Heparin Anti-Xa Level POC ABG pH POC ABG pCO2 POC ABG pO2 Sodium Potassium Chloride Carbon Dioxide BUN Creatinine Glucose POC Glucose 137 H 186 H 140 H Lactic Acid Calcium Phosphorus Total Bilirubin AST ALT Total Creatine Kinase CK-MB (CK-2) Troponin T Total Protein Albumin HDL Cholesterol Salicylates Acetaminophen Crossmatch 10/26/18 10/26/18 10/26/18 08:13 10:08 11:28 WBC RBC Hgb Hct MCV MCHC RDW Plt Count Lymph % (Auto) Starr % (Auto) Starr # Seg Neutrophils % Seg Neuts % (Manual) Lymphocytes % (Manual) Monocytes % (Manual) Seg Neutrophils # Seg Neutrophils # Man Lymphocytes # (Manual) Monocytes # (Manual) APTT Heparin Anti-Xa Level POC ABG pH POC ABG pCO2 POC ABG pO2 Sodium Potassium Chloride Carbon Dioxide BUN Creatinine Glucose POC Glucose 144 H 110 H 201 H Lactic Acid Calcium Phosphorus Total Bilirubin AST ALT Total Creatine Kinase CK-MB (CK-2) Troponin T Total Protein Albumin HDL Cholesterol Salicylates Acetaminophen Crossmatch 10/26/18 10/26/18 10/27/18 16:36 22:29 07:34 WBC RBC Hgb Hct MCV MCHC RDW Plt Count Lymph % (Auto) Starr % (Auto) Starr # Seg Neutrophils % Seg Neuts % (Manual) Lymphocytes % (Manual) Monocytes % (Manual) Seg Neutrophils # Seg Neutrophils # Man Lymphocytes # (Manual) Monocytes # (Manual) APTT Heparin Anti-Xa Level POC ABG pH POC ABG pCO2 POC ABG pO2 Sodium Potassium Chloride Carbon Dioxide BUN Creatinine Glucose POC Glucose 147 H 302 H 182 H Lactic Acid Calcium Phosphorus Total Bilirubin AST ALT Total Creatine Kinase CK-MB (CK-2) Troponin T Total Protein Albumin HDL Cholesterol Salicylates Acetaminophen Crossmatch 10/27/18 10/27/18 10/27/18 11:57 13:33 14:55 WBC RBC Hgb Hct MCV MCHC RDW Plt Count 550 H Lymph % (Auto) Starr % (Auto) Starr # Seg Neutrophils % Seg Neuts % (Manual) Lymphocytes % (Manual) Monocytes % (Manual) Seg Neutrophils # Seg Neutrophils # Man Lymphocytes # (Manual) Monocytes # (Manual) APTT Heparin Anti-Xa Level POC ABG pH POC ABG pCO2 POC ABG pO2 Sodium Potassium Chloride Carbon Dioxide BUN Creatinine Glucose POC Glucose 209 H Lactic Acid Calcium Phosphorus Total Bilirubin AST ALT Total Creatine Kinase CK-MB (CK-2) Troponin T Total Protein Albumin HDL Cholesterol Salicylates Acetaminophen Crossmatch See Detail 10/27/18 10/27/18 10/28/18 17:09 21:45 07:45 WBC RBC Hgb Hct MCV MCHC RDW Plt Count Lymph % (Auto) Starr % (Auto) Starr # Seg Neutrophils % Seg Neuts % (Manual) Lymphocytes % (Manual) Monocytes % (Manual) Seg Neutrophils # Seg Neutrophils # Man Lymphocytes # (Manual) Monocytes # (Manual) APTT Heparin Anti-Xa Level POC ABG pH POC ABG pCO2 POC ABG pO2 Sodium Potassium Chloride Carbon Dioxide BUN Creatinine Glucose POC Glucose 233 H 136 H 201 H Lactic Acid Calcium Phosphorus Total Bilirubin AST ALT Total Creatine Kinase CK-MB (CK-2) Troponin T Total Protein Albumin HDL Cholesterol Salicylates Acetaminophen Crossmatch 10/28/18 10/28/18 10/28/18 11:17 16:34 19:51 WBC RBC Hgb Hct MCV MCHC RDW Plt Count Lymph % (Auto) Starr % (Auto) Starr # Seg Neutrophils % Seg Neuts % (Manual) Lymphocytes % (Manual) Monocytes % (Manual) Seg Neutrophils # Seg Neutrophils # Man Lymphocytes # (Manual) Monocytes # (Manual) APTT Heparin Anti-Xa Level < 0.10 L POC ABG pH POC ABG pCO2 POC ABG pO2 Sodium Potassium Chloride Carbon Dioxide BUN Creatinine Glucose POC Glucose 116 H 168 H Lactic Acid Calcium Phosphorus Total Bilirubin AST ALT Total Creatine Kinase CK-MB (CK-2) Troponin T Total Protein Albumin HDL Cholesterol Salicylates Acetaminophen Crossmatch 10/28/18 10/29/18 10/29/18 21:52 07:11 07:11 WBC RBC Hgb Hct MCV MCHC RDW Plt Count 470 H Lymph % (Auto) Starr % (Auto) Starr # Seg Neutrophils % Seg Neuts % (Manual) Lymphocytes % (Manual) Monocytes % (Manual) Seg Neutrophils # Seg Neutrophils # Man Lymphocytes # (Manual) Monocytes # (Manual) APTT Heparin Anti-Xa Level 0.13 L POC ABG pH POC ABG pCO2 POC ABG pO2 Sodium Potassium Chloride Carbon Dioxide BUN Creatinine Glucose POC Glucose 159 H Lactic Acid Calcium Phosphorus Total Bilirubin AST ALT Total Creatine Kinase CK-MB (CK-2) Troponin T Total Protein Albumin HDL Cholesterol Salicylates Acetaminophen Crossmatch 10/29/18 10/29/18 10/29/18 07:11 07:43 11:29 WBC RBC Hgb Hct MCV MCHC RDW Plt Count Lymph % (Auto) Starr % (Auto) Starr # Seg Neutrophils % Seg Neuts % (Manual) Lymphocytes % (Manual) Monocytes % (Manual) Seg Neutrophils # Seg Neutrophils # Man Lymphocytes # (Manual) Monocytes # (Manual) APTT Heparin Anti-Xa Level POC ABG pH POC ABG pCO2 POC ABG pO2 Sodium Potassium Chloride Carbon Dioxide BUN 7 L Creatinine 0.5 L Glucose 122 H POC Glucose 147 H 165 H Lactic Acid Calcium 8.2 L Phosphorus Total Bilirubin AST ALT Total Creatine Kinase CK-MB (CK-2) Troponin T Total Protein Albumin HDL Cholesterol Salicylates Acetaminophen Crossmatch 10/29/18 10/29/18 10/30/18 19:50 22:11 00:11 WBC RBC Hgb Hct MCV MCHC RDW Plt Count Lymph % (Auto) Starr % (Auto) Starr # Seg Neutrophils % Seg Neuts % (Manual) Lymphocytes % (Manual) Monocytes % (Manual) Seg Neutrophils # Seg Neutrophils # Man Lymphocytes # (Manual) Monocytes # (Manual) APTT Heparin Anti-Xa Level 0.25 L POC ABG pH POC ABG pCO2 POC ABG pO2 Sodium Potassium Chloride Carbon Dioxide BUN Creatinine Glucose POC Glucose 166 H 173 H Lactic Acid Calcium Phosphorus Total Bilirubin AST ALT Total Creatine Kinase CK-MB (CK-2) Troponin T Total Protein Albumin HDL Cholesterol Salicylates Acetaminophen Crossmatch 10/30/18 10/30/18 10/30/18 04:22 04:22 07:47 WBC 27.0 H RBC 3.16 L Hgb 10.0 L Hct 28.8 L D MCV MCHC 35 H RDW Plt Count Lymph % (Auto) Starr % (Auto) Starr # Seg Neutrophils % Seg Neuts % (Manual) Lymphocytes % (Manual) 1.5 L Monocytes % (Manual) Seg Neutrophils # Seg Neutrophils # Man 18.6 H Lymphocytes # (Manual) 0.4 L Monocytes # (Manual) APTT Heparin Anti-Xa Level POC ABG pH POC ABG pCO2 POC ABG pO2 Sodium Potassium Chloride Carbon Dioxide BUN Creatinine Glucose 224 H POC Glucose 168 H Lactic Acid Calcium 7.5 L Phosphorus Total Bilirubin AST ALT Total Creatine Kinase CK-MB (CK-2) Troponin T Total Protein Albumin HDL Cholesterol Salicylates Acetaminophen Crossmatch 10/30/18 07:55 WBC RBC Hgb Hct MCV MCHC RDW Plt Count Lymph % (Auto) Starr % (Auto) Starr # Seg Neutrophils % Seg Neuts % (Manual) Lymphocytes % (Manual) Monocytes % (Manual) Seg Neutrophils # Seg Neutrophils # Man Lymphocytes # (Manual) Monocytes # (Manual) APTT Heparin Anti-Xa Level < 0.10 L POC ABG pH POC ABG pCO2 POC ABG pO2 Sodium Potassium Chloride Carbon Dioxide BUN Creatinine Glucose POC Glucose Lactic Acid Calcium Phosphorus Total Bilirubin AST ALT Total Creatine Kinase CK-MB (CK-2) Troponin T Total Protein Albumin HDL Cholesterol Salicylates Acetaminophen Crossmatch Allied health notes reviewed: nursing
--- NOTE | 2018-10-30 12:47 | Progress Note ---
Assessment and Plan No current cardiac complaints. 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 On heparin gtt per vascular team. Pt noted to be hypotensive today, receiving IVF boluses. He may require vasopressor support if BPs do not improve with fluid resuscitation. Can consider levophed gtt if necessary to maintain MAP >60mmHg. The patient has been seen in conjunction with Dr. Charles who agrees with the assessment and plan of care. - Patient Problems (1) Altered mental state Current Visit: Yes Status: Acute Qualifiers: Altered mental status type: unspecified Qualified Code(s): R41.82 - Altered mental status, unspecified (2) Opiate overdose Current Visit: Yes Status: Suspected (3) Acute CVA (cerebrovascular accident) Current Visit: Yes Status: Acute (4) Cardiomyopathy Current Visit: Yes Status: Chronic (5) Paroxysmal atrial fibrillation Current Visit: Yes Status: Acute (6) Seizure Current Visit: Yes Status: Acute (7) Acute respiratory failure Current Visit: Yes Status: Acute (8) NSTEMI (non-ST elevated myocardial infarction) Current Visit: Yes Status: Acute (9) 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 Current Visit: Yes Status: Chronic (10) Hypotension Current Visit: Yes Status: Resolved Qualifiers: Hypotension type: unspecified hypotension type Qualified Code(s): I95.9 - Hypotension, unspecified (11) Acute renal insufficiency Current Visit: Yes Status: Acute (12) Lactic acid acidosis Current Visit: Yes Status: Acute (13) Diabetes mellitus with hyperglycemia Current Visit: Yes Status: Acute (14) Elevated liver enzymes Current Visit: Yes Status: Acute (15) History of hepatitis Current Visit: Yes Status: Chronic (16) History of rheumatic fever as a child Current Visit: Yes Status: Chronic (17) Polysubstance abuse Current Visit: Yes Status: Chronic (18) Tobacco use Current Visit: Yes Status: Chronic (19) Sepsis Current Visit: Yes Status: Acute Qualifiers: Sepsis type: sepsis due to unspecified organism Qualified Code(s): A41.9 - Sepsis, unspecified organism (20) Arterial thrombosis Current Visit: Yes Status: Acute (21) PVD (peripheral vascular disease) Current Visit: Yes Status: Chronic (22) Gangrene Current Visit: Yes Status: Acute Subjective Date of service: 10/30/18 Principal diagnosis: Ac hypercapnic hypoxemic Resp failure; Severe PVD; AE-COPD; NINOSKA; Seizures Interval history: Pt resting in bed, no current cardiac complaints. s/p LLE BKA yesterday. Objective Last Vital Signs Temp 98.0 F 10/30/18 12:00 Pulse 80 10/30/18 10:18 Resp 18 10/30/18 10:18 BP 81/45 10/30/18 09:31 Pulse Ox 98 10/30/18 10:00 - Physical Examination General: No Apparent Distress Neck: Positive: neck supple Cardiac: Positive: Reg Rate and Rhythm, S1/S2 Lungs: Positive: Decreased Breath Sounds Neuro: Positive: Grossly Intact Abdomen: Positive: Soft. Negative: Tender Musculoskeletal: other (LLE BKA, RLE mottled) - Labs and Meds CBC 10/30/18 Range/Units 04:22 WBC 27.0 H (4.5-11.0) K/mm3 RBC 3.16 L (3.65-5.03) M/mm3 Hgb 10.0 L (11.8-15.2) gm/dl Hct 28.8 L D (35.5-45.6) % Plt Count 317 (140-440) K/mm3 Comprehensive Metabolic Panel 10/30/18 Range/Units 04:22 Sodium 137 (137-145) mmol/L Potassium 4.6 (3.6-5.0) mmol/L Chloride 102.6 (98-107) mmol/L Carbon Dioxide 25 (22-30) mmol/L BUN 14 (9-20) mg/dL Creatinine 0.8 D (0.8-1.5) mg/dL Glucose 224 H (75-100) mg/dL Calcium 7.5 L (8.4-10.2) mg/dL - Imaging and Cardiology EKG: report reviewed, image reviewed Echo: report reviewed (TDS, mild LVH, severe global hypokinesis of LV, unable to estimate LVEF, trace TR. ) - Telemetry EKG Rhythm: Sinus Rhythm - EKG Sinus rhythms and dysrhythmias: sinus rhythm - Allied health notes Allied health notes reviewed: nursing
--- NOTE | 2018-10-30 12:54 | Vascular Lab Report ---
PROCEDURE: VL ARTERIAL DUPLEX LE RT TECHNIQUE: Hickman scale, color and pulsed Doppler ultrasound with color flow and spectral analysis eval uation of right lower extremity arteries were performed. Pulse volume recordings and brachial indices obtained. HISTORY: Status post aortic and right common iliac stent. Patient is status post right external iliac and superficial femoral artery embolectomy. Pain and coldness of the right lower extremity. COMPARISONS: None currently available. FINDINGS: RIGHT EXTREMITY: Right common iliac stent was not visualized. EIA, proximal GEOLOGY TEACHER, distal GEOLOGY TEACHER, proximal SFA, DFA, mid SFA, distal SFA, proximal popliteal, distal pop liteal, PROP DRAWER, and HANNA velocities in cm/sec: 0, 16, 22, 18, 0, 17, 14, 13, 20, 9, and 6. Monophasic waveforms throughout. IMPRESSION: * No flow in the right external iliac artery and deep femoral artery is concerning for significant s tenosis or occlusion. * Common iliac stent was not visualized. * Monophasic flow in the remainder of the right lower extremity may represent collateral flow and/or moderate to severe diffuse disease. This document is electronically signed by Roque Butts MD., Oct 30 2018 12:51:37 PM ET
[2018-10-30] MEDS ORDERED: HEPARIN IV ONE (13:30)
--- NOTE | 2018-10-30 14:38 | Progress Note ---
Assessment and Plan Assessment and plan: Patient is a 58 yo man with a history of COPD, DM, hypertension, asthma, peripheral neuropathy, chronic hepatitis C virus, panic attack. anxiety disorder, polysubstance abuse including alcohol, cocaine and heroin who presented to [facility] ED on 10/11/18 with AMS. He was diagnosis with septic shock due to pneumonia and placed on abx and vasopressors. He was also diagnosis with DKA/respiratory failure/Status epilepticus/ARF. --Bilateral lower extremity PVD with gangrene left greater than right. The patient has distal aortic thrombus and right external iliac occlusion and left popliteal and infrapopliteal occlusion. Vascular surgery reports that Plan would be a left major amputation (BKA vs AKA to be determined based on residual non-necrotic tissue), aortoiliac stenting and fem-fem bypass. Transitioned patient from eliquis to heparin drip. After surgery, vascular will transition patient back from heparin drip to eliquis when appropriate. May also need right TMA, toe amputations, or to allow for autoamputation after major surgery. --acute/subacute right FT CVA Initial CT head, no acute finding, 10/13/18 found to have left-sided weakness MRI brain showed numerous acute/subacute multilobar infarcts involving the cerebrum and cerebellum including Hemorrhagic transformation of the right frontal and biparietal lobes was Not a candidate for tPA, monitor off aspirin per teleneurology QUIQUE ; no thrombus or shunt, Speech recommended pureed diet --Severe sepsis with shock; present on admission Probably due to aspiration pneumonia, completed total 7 days of antibiotics off pressors --Paroxysmal atrial fibrillation. Currently on heparin drip --LLL pneumonia : completed treatment --Acute respiratory failure with hypoxia and hypercapnia: Requiring intubation, extubated, nebs , supplemental O2 as needed --Hyperglycemia:cont SSI for now, diabetic diet --Acute toxic/metabolic encephalopathy, improved --Seizure; seizure precautions, no new episodes of seizure Ativan when necessary, neurology did not recommend antiepileptic medications --Elevated troponin/NSTEMI type 2 Echocardiogram for further evaluation - Ef 25-30% Cardiology consulted, medical Mx for now, --Acute systolic CHF, Ef 25-30%, anti-failure medications --ARF, due to vasomotor nephropathy, resolved --Hyperkalemia, resolved --Abnormal LFT Probably due to sepsis and chronic hepatitis C virus infection Abdominal US showed no sign of cirrhosis --Severe protein calorie malnutrition; nutrition supplements Dietitian consulted --DVT prophylaxis with heparin and GI prophylaxis with famotidine --Tobacco abuse. Patient with a long smoking history of one pack per day or more since age 9. Patient was counseled on smoking cessation. Disposition: Plan is for surgery today if cleared by cardiology. History Interval history: Patient was seen and examined. Follow-up on current diagnosis of PVD. No overnight events reported to me. Patient denies any chest pain, shortness breath, nausea/vomiting or severe headaches. Imaging, nursing note, chart, labs and old chart reviewed. Discussed with patient. at bedside Hospitalist Physical - Physical exam Narrative exam: Gen: severely cachectic, disable, NAD, Awake, Alert, Orientated x 2 HEENT: NCAT, EOMI, PERRL, OP Clear Neck: supple, no adenopathy, no thyromegaly, no JVD CVS/Heart: RRR, normal S1S2, pulses present weak, right foot cool to touch (Dr. Murray at bedside with me also) Chest/Lungs: diminished bs bilateral, Symmetrical chest expansion, good air entry bilaterally GI/Abdomen: soft, NTND, good bowel sounds, no guarding or rebound /Bladder: no suprapubic tenderness, no CVA or paraspinal tenderness Extermity/Skin: left bka, right toes and foot dry gangrene MSK: FROM x 4 Neuro: CN 2-12 grossly intact, no new focal deficits Psych: calm - Constitutional Vitals: Temp Pulse Resp BP Pulse Ox 98.0 F 86 24 93/54 98 10/30/18 12:00 10/30/18 12:30 10/30/18 12:30 10/30/18 12:30 10/30/18 12:30 General appearance: Present: no acute distress Results - Labs CBC & Chem 7: 10/30/18 04:22 10/30/18 04:22 Labs: Laboratory Last Values WBC 27.0 K/mm3 (4.5-11.0) H 10/30/18 04:22 RBC 3.16 M/mm3 (3.65-5.03) L 10/30/18 04:22 Hgb 10.0 gm/dl (11.8-15.2) L 10/30/18 04:22 Hct 28.8 % (35.5-45.6) L D 10/30/18 04:22 MCV 91 fl (84-94) 10/30/18 04:22 MCH 32 pg (28-32) 10/30/18 04:22 MCHC 35 % (32-34) H 10/30/18 04:22 RDW 14.8 % (13.2-15.2) 10/30/18 04:22 Plt Count 317 K/mm3 (140-440) 10/30/18 04:22 Lymph % (Auto) 11.3 % (13.4-35.0) L 10/24/18 05:56 Lamoure % (Auto) 7.1 % (0.0-7.3) 10/24/18 05:56 Eos % (Auto) 1.0 % (0.0-4.3) 10/24/18 05:56 Baso % (Auto) 0.4 % (0.0-1.8) 10/24/18 05:56 Lymph # 1.3 K/mm3 (1.2-5.4) 10/24/18 05:56 Lamoure # 0.8 K/mm3 (0.0-0.8) 10/24/18 05:56 Eos # 0.1 K/mm3 (0.0-0.4) 10/24/18 05:56 Baso # 0.0 K/mm3 (0.0-0.1) 10/24/18 05:56 Add Manual Diff Complete 10/30/18 04:22 Total Counted 200 10/30/18 04:22 Seg Neutrophils % Museum Curator 10/30/18 04:22 Seg Neuts % (Manual) 69.0 % (40.0-70.0) 10/30/18 04:22 26.0 % 10/30/18 04:22 1.5 % (13.4-35.0) L 10/30/18 04:22 Reactive Lymphs % (Man) 0 % 10/30/18 04:22 2.0 % (0.0-7.3) 10/30/18 04:22 0 % (0.0-4.3) 10/30/18 04:22 0 % (0.0-1.8) 10/30/18 04:22 1.0 % 10/30/18 04:22 0.5 % 10/30/18 04:22 0 % 10/30/18 04:22 0 % 10/30/18 04:22 Nucleated RBC % Not Reportable 10/30/18 04:22 Seg Neutrophils # 9.4 K/mm3 (1.8-7.7) H 10/24/18 05:56 Seg Neutrophils # Man 18.6 K/mm3 (1.8-7.7) H 10/30/18 04:22 Band Neutrophils # 7.0 K/mm3 10/30/18 04:22 0.4 K/mm3 (1.2-5.4) L 10/30/18 04:22 Abs React Lymphs (Man) 0.0 K/mm3 10/30/18 04:22 0.5 K/mm3 (0.0-0.8) 10/30/18 04:22 0.0 K/mm3 (0.0-0.4) 10/30/18 04:22 0.0 K/mm3 (0.0-0.1) 10/30/18 04:22 0.3 K/mm3 10/30/18 04:22 0.1 K/mm3 10/30/18 04:22 0.0 K/mm3 10/30/18 04:22 Blast Cells # 0.0 K/mm3 10/30/18 04:22 Pathologist Review 10/11/18 00:16 WBC Morphology Not Reportable 10/30/18 04:22 WBC Morphology TNR 10/30/18 04:22 Hypersegmented Neuts Not Reportable 10/30/18 04:22 Hyposegmented Neuts Not Reportable 10/30/18 04:22 Hypogranular Neuts Not Reportable 10/30/18 04:22 Not Reportable 10/30/18 04:22 Not Reportable 10/30/18 04:22 Not Reportable 10/30/18 04:22 Not Reportable 10/30/18 04:22 Not Reportable 10/30/18 04:22 Not Reportable 10/30/18 04:22 Consistent w auto 10/30/18 04:22 Not Reportable 10/30/18 04:22 Plt Clumps, EDTA Not Reportable 10/30/18 04:22 Not Reportable 10/30/18 04:22 Not Reportable 10/30/18 04:22 Not Reportable 10/30/18 04:22 Plt Morphology Comment Not Reportable 10/30/18 04:22 RBC Morphology Not Reportable 10/30/18 04:22 Dimorphic RBCs Not Reportable 10/30/18 04:22 Not Reportable 10/30/18 04:22 Not Reportable 10/30/18 04:22 Not Reportable 10/30/18 04:22 Not Reportable 10/30/18 04:22 Not Reportable 10/30/18 04:22 Not Reportable 10/30/18 04:22 Not Reportable 10/30/18 04:22 Not Reportable 10/30/18 04:22 Not Reportable 10/30/18 04:22 Not Reportable 10/30/18 04:22 Not Reportable 10/30/18 04:22 Not Reportable 10/30/18 04:22 Not Reportable 10/30/18 04:22 Not Reportable 10/30/18 04:22 Not Reportable 10/30/18 04:22 Not Reportable 10/30/18 04:22 Not Reportable 10/30/18 04:22 Not Reportable 10/30/18 04:22 Not Reportable 10/30/18 04:22 Acanthocytes (Spur) Not Reportable 10/30/18 04:22 Rouleaux Not Reportable 10/30/18 04:22 Not Reportable 10/30/18 04:22 Not Reportable 10/30/18 04:22 Not Reportable 10/30/18 04:22 Not Reportable 10/30/18 04:22 Hem Pathologist Commnt No 10/30/18 04:22 PT 13.9 Sec. (12.2-14.9) 10/29/18 07:11 INR 1.01 (0.87-1.13) 10/29/18 07:11 APTT 30.3 Sec. (24.2-36.6) 10/27/18 13:33 Heparin Anti-Xa Level < 0.10 U.I./ml (0.3-0.7) L 10/30/18 07:55 Heparin Anti-Xa, Unfract Negative (Negative) 10/15/18 12:00 POC ABG pH 7.393 (7.35-7.45) 10/16/18 12:51 POC ABG pCO2 48.9 (35-45) H 10/16/18 12:51 POC ABG pO2 92 (80-105) 10/16/18 12:51 POC ABG HCO3 29.8 (22-26 mml/L) 10/16/18 12:51 POC ABG Total CO2 31 (23-27mmol/L) 10/16/18 12:51 POC ABG O2 Sat 97 10/16/18 12:51 POC ABG Base Excess 5 ((-2) - (+3)mmol/L) 10/16/18 12:51 35 % 10/16/18 12:51 Sodium 137 mmol/L (137-145) 10/30/18 04:22 Potassium 4.6 mmol/L (3.6-5.0) 10/30/18 04:22 Chloride 102.6 mmol/L (98-107) 10/30/18 04:22 Carbon Dioxide 25 mmol/L (22-30) 10/30/18 04:22 14 mmol/L 10/30/18 04:22 BUN 14 mg/dL (9-20) 10/30/18 04:22 0.8 mg/dL (0.8-1.5) D 10/30/18 04:22 Estimated GFR > 60 ml/min 10/30/18 04:22 18 % 10/30/18 04:22 Glucose 224 mg/dL (75-100) H 10/30/18 04:22 POC Glucose 165 (70-105) H 10/30/18 11:20 Lactic Acid 2.70 mmol/L (0.7-2.0) H* 10/11/18 12:30 Calcium 7.5 mg/dL (8.4-10.2) L 10/30/18 04:22 Phosphorus 2.80 mg/dL (2.5-4.5) 10/21/18 04:59 Magnesium 1.90 mg/dL (1.7-2.3) 10/21/18 04:59 0.30 mg/dL (0.1-1.2) 10/24/18 05:56 AST 44 units/L (5-40) H 10/24/18 05:56 ALT 40 units/L (7-56) 10/24/18 05:56 57 units/L (35-129) 10/24/18 05:56 3647 units/L (55-170) H 10/12/18 04:04 CK-MB (CK-2) 48.3 ng/mL (0.0-4.0) H 10/12/18 04:04 CK-MB (CK-2) Rel Index 1.3 (0-4) 10/12/18 04:04 0.816 ng/mL (0.00-0.029) H* 10/13/18 16:15 6.2 g/dL (6.3-8.2) L 10/24/18 05:56 2.4 g/dL (3.9-5) L 10/24/18 05:56 0.6 % 10/24/18 05:56 Triglycerides 87 mg/dL (2-149) 10/11/18 00:16 Cholesterol 73 mg/dL (50-199) 10/11/18 00:16 51 mg/dL (50-130) 10/11/18 00:16 19 mg/dL (40-59) L 10/11/18 00:16 3.84 % 10/11/18 00:16 See scanned report 10/15/18 12:00 Yellow (Yellow) 10/11/18 01:42 Cloudy (Clear) 10/11/18 01:42 6.0 (5.0-7.0) 10/11/18 01:42 Ur Specific Herrin 1.011 (1.003-1.030) 10/11/18 01:42 100 mg/dl mg/dL (Negative) 10/11/18 01:42 >=500 mg/dL (Negative) 10/11/18 01:42 Neg mg/dL (Negative) 10/11/18 01:42 Mod (Negative) 10/11/18 01:42 Neg (Negative) 10/11/18 01:42 Neg (Negative) 10/11/18 01:42 4.0 mg/dL (<2.0) 10/11/18 01:42 Ur Leukocyte Esterase Neg (Negative) 10/11/18 01:42 5.0 /HPF (0.0-6.0) 10/11/18 01:42 2.0 /HPF (0.0-6.0) 10/11/18 01:42 U Epithel Cells (Auto) < 1.0 /HPF (0-13.0) 10/11/18 01:42 Amorphous Crystals 1+ 10/11/18 01:42 Few /HPF 10/11/18 01:42 2+ /HPF (POKER SUPERVISOR) 10/11/18 01:42 Vancomycin Trough 8.3 ug/mL (5.0-20.0) 10/13/18 05:40 Salicylates < 0.3 mg/dL (2.8-20.0) L 10/11/18 00:16 Presumptive positive 10/11/18 01:42 Presumptive negative 10/11/18 01:42 Acetaminophen < 5.0 ug/mL (10.0-30.0) L 10/11/18 00:16 Ur Barbiturates Screen Presumptive negative 10/11/18 01:42 Ur Phencyclidine Scrn Presumptive negative 10/11/18 01:42 Ur Amphetamines Screen Presumptive positive 10/11/18 01:42 U Benzodiazepines Scrn Presumptive positive 10/11/18 01:42 Presumptive negative 10/11/18 01:42 U Marijuana (THC) Screen Presumptive negative 10/11/18 01:42 Disclamer 10/11/18 01:42 Plasma/Serum Alcohol < 0.01 % (0-0.07) 10/11/18 00:16 Heparin-induced Plt Ab Negative (Negative) 10/15/18 12:00 UF Heparin High Dose 0 % Release 10/15/18 12:00 AURELIO UFH Low Dose 0.1 0 % Release 10/15/18 12:00 AURELIO UFH Low Dose 0.5 0 % Release 10/15/18 12:00 Blood Type O POSITIVE 10/27/18 14:55 Antibody Screen Positive 10/27/18 14:55 Antibody Identification Negative 10/27/18 14:55 Crossmatch See Detail 10/27/18 14:55 Active Medications - Current Medications Current Medications: Generic Name Dose Route Start Last Admin Trade Name Freq PRN Reason Stop Dose Admin Acetaminophen 650 mg 10/11/18 04:04 10/21/18 22:21 Tylenol PO 650 mg Q4H PRN Administration Pain MILD(1-3)/Fever >100.5/HOLLINS Albuterol 2.5 mg 10/19/18 00:54 Proventil IH Q4HRT PRN Shortness Of Breath Albuterol/Ipratropium 1 ampul 10/19/18 08:00 10/30/18 13:56 Duoneb *Not For Prn Use* IH 1 ampul TIDRT ISAAC Administration Alprazolam 1 mg 10/20/18 13:06 10/30/18 04:34 Xanax PO 1 mg TID PRN Administration Anxiety Citalopram Hydrobromide 10 mg 10/21/18 10:00 10/29/18 09:11 Celexa PO 10 mg QDAY ISAAC Administration Dextrose 0 ml 10/11/18 03:57 10/11/18 10:18 D50w (25gm) Syringe IV 10 ml PRN PRN Administration Hypoglycemia Famotidine 20 mg 10/15/18 10:00 10/30/18 09:32 Pepcid PO 20 mg BID ISAAC Administration Hydromorphone HCl 1 mg 10/28/18 09:07 10/30/18 02:28 Dilaudid IV 1 mg Q4H PRN Administration Pain , Severe (7-10) Heparin Sodium/Sodium Chloride 25,000 unit in 500 mls @ 18 mls/hr 10/27/18 14:00 10/30/18 13:13 Heparin/ 0.45% Nacl-25,000 Unit/500 Ml IV 1,300 units/hr TITR ISAAC 26 mls/hr Titration Protocol 900 UNITS/HR Sodium Chloride 1,000 mls @ 250 mls/hr 10/30/18 11:00 10/30/18 11:59 Nacl 0.9% 1000 Ml IV 10/30/18 14:59 75 mls/hr ONCE ONE Administration Insulin Human Regular 0 units 10/17/18 11:30 10/30/18 11:57 Humulin R SUB-Q 3 units ACHS ISAAC Administration Protocol Metoprolol Tartrate 25 mg 10/18/18 22:00 10/30/18 09:31 Lopressor PO Not Given BID ISAAC Metoprolol Tartrate 2.5 mg 10/18/18 18:51 10/18/18 22:19 Lopressor IV 2.5 mg Q6H PRN Administration Tachyarrhythmias Naloxone HCl 0.1 mg 10/29/18 16:03 Narcan 0.4 Mg/1 Ml IV Q2MIN PRN Res Rate </= 8 or 02 SAT < 92% Ondansetron HCl 4 mg 10/11/18 04:04 Zofran IV Q8H PRN Nausea And Vomiting Oxycodone/Acetaminophen 1 tab 10/18/18 13:45 10/30/18 14:11 Percocet 5/325 PO 1 tab Q6H PRN Administration Pain, Moderate (4-6) Quetiapine Fumarate 200 mg 10/14/18 22:00 10/29/18 21:58 Seroquel PO 200 mg QHS ISAAC Administration Nutrition/Malnutrition Assess - Dietary Evaluation Nutrition/Malnutrition Findings: Nutrition Notes Start: 10/11/18 12:39 Freq: Status: Active Protocol: Document 10/28/18 13:44 RM (Rec: 10/28/18 13:53 RM [id number]) Nutrition Notes Initial or Follow up Reassessment Current Diagnosis Acute Kidney Injury,COPD, Diabetes,Sepsis,Hypertension, Stroke Other Pertinent Diagnosis Sacral PU, R & L leg skin tear , Hep C, cellulitis, Opiate overdose, AMS Current Diet [facility] soft w/chopped meats Labs/Tests No recent labs Pertinent Medications Reviewed Height 6 ft 3 in Weight 64.5 kg [place] Body Weight (kg) 89.09 BMI 17.7 Subjective/Other Information [facility] soft w/chopped meats recommended per bedside dysphagia evaluation 10/27/18. Pt asleep at time of visit. Per nurse pt eats 50% of his meals. Percent of energy/protein needs met: 46%/63% Burn Absent Trauma Absent #2 Nutrition Diagnosis Inadequate oral intake Diagnosis Progress(for reassessment Continues documentation) #1 Nutrition Diagnosis Malnutrition Diagnosis Progress(for reassessment Continues documentation) Is patient on ventilator? No Is Patient Ambulatory and/or Out of Bed No REE-([facility]-confined to bed) 1877.352 Kcal/Kg value to use for calculation 36 Approximate Energy Requirements Using 2322 kcal/Kg Calculation Used for Recommendations Kcal/kg Additional Notes Protein Needs: 79-99g (1.2-1. 5g/kg) Fluid Needs: 1 ml/kcal Nutrition Intervention Change Diet Order: Continue current Add Supplement/Snack (indicate name/kcal Glucerna BID /protein ) Provides kCal: 440 Provides Protein (gm) 20 Goal #1 Meet at least 75% of calorie and protein needs via PO and ONS intakes Goal #2 Wt gain/maintenance Anticipated Discharge Needs: Mech soft w/chopped meat diet Follow-Up By: 10/31/18 Additional Comments Follow for PO and ONS intakes
[2018-10-30] MEDS: celeXA PO SCH (16:44)
[2018-10-30] MEDS: HEPARIN/ 0.45% NACL-25,000 UNIT/500 ML 25,000 UNIT/500 ML BAG IV SCH ×2 (19:25→20:33)
[2018-10-31] MEDS: DILAUDID IV PRN ×3 (02:12→21:30)
[2018-10-31] MEDS: PERCOCET 5/325 PO PRN ×2 (03:05→20:15)
[2018-10-31] MEDS: XANAX PO PRN (04:34)
[2018-10-31 05:29] LABS: Hematocrit 26.6 % (35.5-45.6)
[2018-10-31] MEDS ORDERED: NACL 0.9% 500 ML 500 ML IV ONE (06:34)
[2018-10-31] MEDS ORDERED: DIPRIVAN 10 MG/ML IV ONE (07:29)
[2018-10-31] MEDS ORDERED: SUBLIMAZE ONE (07:29)
[2018-10-31] MEDS: LACTATED RINGERS 1,000 ML IV SCH ×2 (07:42→15:29)
--- NOTE | 2018-10-31 07:55 | Anesthesia Day of Surgery ---
Anesthesia Day of Surgery - Day of Surgery Patient Examined: Yes Patient H&P Reviewed: Yes Patient is NPO: Yes Beta Blockers: No (held 2/2 low BP last 24hrs)
[2018-10-31] MEDS ORDERED: HEPARIN 10,000 UNITS/10 ML ONE (07:59)
[2018-10-31] MEDS ORDERED: SUBLIMAZE IV PRN (08:00)
[2018-10-31] MEDS ORDERED: NACL 0.9% 1000 ML 1,000 ML ONE (08:00)
[2018-10-31] MEDS ORDERED: ANCEF/STERILE WATER 2 GM/20 ML IV NR (08:00)
[2018-10-31] MEDS ORDERED: VERSED ONE (08:01)
[2018-10-31] MEDS ORDERED: NACL 0.9% 1000 ML IR ONE (08:15)
[2018-10-31] MEDS: DUONEB *Not for PRN Use IH SCH ×2 (09:31→20:13)
[2018-10-31] MEDS ORDERED: NEO SYNEPHRINE ONE (09:56)
[2018-10-31] MEDS ORDERED: XYLOCAINE MPF 2% ONE (09:56)
[2018-10-31] MEDS ORDERED: ZOFRAN ONE (09:56)
[2018-10-31] MEDS ORDERED: AMIDATE IV ONE (09:56)
[2018-10-31] MEDS ORDERED: DECADRON ONE (09:56)
[2018-10-31] MEDS ORDERED: NEO SYNEPHRINE/NS Syringe(OR USE) IV ONE (09:56)
[2018-10-31] MEDS: HEPARIN/ 0.45% NACL-25,000 UNIT/500 ML 25,000 UNIT/500 ML BAG IV SCH ×2 (10:10→19:49)
--- NOTE | 2018-10-31 10:10 | Operative Report ---
Operative Report Operative Report: Date of Procedure: 10/31/2018 Pre-operative Diagnosis: Acute Right Lower Extremity Ischemia Post-operative Diagnosis: Same Procedure(s): 1. Reexploration of Right Common Femoral Artery 2. Diagnostic Aortogram with Right Lower Extremity Arteriogram (The Patient Had a Clinical Change) 3. Open Thrombectomy of Right External Iliac Artery with Dizi-Xps-Tsiu Claritza 4. Angioplasty and Stenting of Right Common Iliac Artery with 8 x 40 Conquest Balloon and 8 x 5 cm Viabahn Stent Graft 6. Angioplasty and Stent of Right External Iliac Artery With 8 x 40 Conquest Balloon and 8 x 10 cm Viabahn Stent Graft 7. Radiologic Supervision with Interpretation Surgeon: Eron Payan M.D. Hatch Supervisor: None Anesthesia: Gen. Endotracheal Anesthesia EBL: 100 mL Counts: Correct Complications: None Condition: Stable Findings: Thrombosed right external iliac artery. Patent right common iliac artery and right external iliac artery without significant residual thrombus or stenosis after enteroplasty and stent. Specimen: Thrombus from right external iliac artery was discarded. Indication: The patient is a 58-year-old male who recently underwent revascularization of bilateral lower extremities which included a open embolectomy of his right external iliac artery. Overnight she thrombosed the iliac artery and requires return to the operating room reexploration and open thrombectomy. His father was given the risks, benefits, and alternative procedures and consented to the procedure. Description of Procedure: The patient was brought into the operating room and laid in supine position. After general endotracheal anesthesia was achieved his right leg and abdomen were prepped and draped in normal sterile fashion. A 10 blade was then used to reopen his right groin and curved Mayos or used to reopen the sutures in the soft tissue. After reopening the incision Vesseloops were placed around the common femoral artery, the SFA, and the profunda artery. An 11 blade was then used to reopen the arteriotomy and an 8 Kyr[place]z 11 cm sheath was advanced retrograde through the femoral artery and into the external iliac artery. A 0.035 Bentson wire was advanced through the external iliac artery and into the aorta under fluoroscopic visualization. The patient was then systemically heparinized and a vertebral catheter was passed over the Bentson wire and into the aorta and a diagnostic aortogram with right lower extremity runoff was performed revealing that the aorta and bilateral common iliac stents were patent. The right hypogastric was patent however the right external iliac artery was occluded. I reinserted the Bentson wire removed a vertebral catheter. I used a [id number] Claritza to perform an open thrombectomy of the external iliac artery removing a significant amount of soft thrombus. After 2 passes there was no further thrombus and there was significant amount of pul satile bleeding. Of note there was an obvious step off with compression of the Claritza balloon at the origin of the external iliac artery. Follow-up arteriogram did not demonstrate an obvious stenosis at the origin however do reveal what appeared to be residual thrombus adhered to the distal external iliac wall. Because the patient appeared widely patent after his previous procedure but still thrombosed the artery and decided to line the entire artery with stent grafts. I placed an 8 x 5 cm Viabahn Stent Graft with approximately 2 cm of overlap with the previous place right common iliac artery stent and covered the remainder of the right common iliac artery. I then placed an 8 x 10 cm Viabahn Stent Graft extending from the origin of the external iliac down to the distal external iliac ensuring that I covered the area of the the adherent thrombus. I used an 8 x 40 Conquest balloon to post dilate the stent grafts and then performed a angiogram revealing widely patent stent grafts without any residual thrombus or stenosis. At this point I removed the sheath and wire and reclamped the vessels after flushing them with heparinized saline and closed the femoral arteriotomy using 6-0 Prolene in interrupted fashion. Hemostasis within the wound was achieved with a combination of Quick Clot and FloSeal. Once hemostasis was achieved the wound was closed in 3 layers using 3-0 Vicryl in running fashion to reapproximate the fascia, 3-0 Vicryl running fashion the deep dermal layer, and a 4-0 Monocryl running fashion subcuticular. The wound was dressed with Dermabond. The patient tolerated the procedure well. All sponge, needle, and instrument counts were correct. The patient was taken to the recovery area in stable condition.
--- NOTE | 2018-10-31 11:43 | Progress Note ---
Assessment and Plan Acute hypoxemic respiratory failure, on mechanical ventilator support. Drug overdose. Acute chronic obstructive pulmonary disease exacerbation. Severe PVD Witnessed seizure en route. Acute kidney injury. Leukocytosis. Hypercapnia. Hyperkalemia. Metabolic acidosis. Lactic acidosis. Non-ST elevation myocardial infarction. Elevated serum transaminases. - continue IV heparin for PVD (prn H&H) - good response to volume bolus - begin Levophed if persistent hypotension - discontinue edmondson catheter if ok with surgeon - continue bronchodilators with pulmonary hygiene per RT - continue GI & VTE prophylaxis - prn supplemental oxygen to keep O2 sats 88-90% - follow clinically off AB's - Aspiration precautions - Accuchecks with glycemic control. Target glucose of 140-180 mg/dL - Maintenance of sleep -wake cycle - Mobility as tolerated by hemodynamics - Influenza and pneumonia vaccination per protocol ..care plan discussed at length with RN/RT at the bedside ..discussed in ICU-IDT rounds ... transfer to [facility] ok Subjective Date of service: 10/31/18 Principal diagnosis: Ac hypercapnic hypoxemic Resp failure; Drug OD; AE-COPD; NINOSKA; Seizures Interval history: Patient is seen today for: Acute hypoxemic respiratory failure, on mechanical ventilator support; Drug overdose; Acute chronic obstructive pulmonary disease exacerbation; Witnessed seizure en route; Acute kidney injury; Leukocytosis; Hypercapnia. Seen and examined at bedside; 24-hour events reviewed; nursing and respiratory care staff consulted; no adverse overnight events reported to me; doing well post op; denies acute chest pains or palpitations; No N/V/F/C and no gross bleeding Objective Vital Signs - 12hr 10/31/18 10/31/18 10/31/18 00:00 00:30 01:00 Temperature 98.0 F Pulse Rate 84 87 82 Pulse Rate [ 88 Apical] Pulse Rate [ 88 From Monitor] Respiratory 15 15 15 Rate Blood Pressure 106/62 114/72 104/58 O2 Sat by Pulse 99 97 96 Oximetry 10/31/18 10/31/18 10/31/18 01:30 02:00 02:12 Temperature Pulse Rate 80 90 Pulse Rate [ Apical] Pulse Rate [ From Monitor] Respiratory 16 21 15 Rate Blood Pressure 105/64 119/75 O2 Sat by Pulse 96 82 L Oximetry 10/31/18 10/31/18 10/31/18 02:30 03:00 03:30 Temperature Pulse Rate 93 H 97 H 105 H Pulse Rate [ Apical] Pulse Rate [ From Monitor] Respiratory 17 19 18 Rate Blood Pressure 110/77 92/52 86/47 O2 Sat by Pulse 98 91 Oximetry 10/31/18 10/31/18 10/31/18 04:00 04:30 05:00 Temperature 97.9 F Pulse Rate 100 H 93 H 92 H Pulse Rate [ Apical] Pulse Rate [ From Monitor] Respiratory 20 19 20 Rate Blood Pressure 85/39 89/50 93/49 O2 Sat by Pulse 92 94 94 Oximetry 10/31/18 10/31/18 10/31/18 05:30 06:00 07:00 Temperature 98.5 F Pulse Rate 89 105 H 90 Pulse Rate [ Apical] Pulse Rate [ From Monitor] Respiratory 19 20 18 Rate Blood Pressure 98/59 120/79 96/53 O2 Sat by Pulse 96 97 95 Oximetry 10/31/18 10/31/18 10/31/18 07:10 09:56 10:00 Temperature 98.5 F 97.4 F L Pulse Rate 90 77 77 Pulse Rate [ Apical] Pulse Rate [ From Monitor] Respiratory 18 17 17 Rate Blood Pressure 96/53 107/66 101/66 O2 Sat by Pulse 95 100 100 Oximetry 10/31/18 10/31/18 10/31/18 10:05 10:10 10:25 Temperature Pulse Rate 77 79 79 Pulse Rate [ Apical] Pulse Rate [ From Monitor] Respiratory 16 17 17 Rate Blood Pressure 101/65 104/65 101/67 O2 Sat by Pulse 100 100 100 Oximetry 10/31/18 10/31/18 10/31/18 10:40 10:55 11:05 Temperature 97.8 F Pulse Rate 79 84 84 Pulse Rate [ Apical] Pulse Rate [ From Monitor] Respiratory 17 17 15 Rate Blood Pressure 105/69 111/74 115/76 O2 Sat by Pulse 100 100 100 Oximetry 10/31/18 10/31/18 10/31/18 11:15 11:20 11:30 Temperature 97.5 F L Pulse Rate 83 86 Pulse Rate [ Apical] Pulse Rate [ From Monitor] Respiratory 15 17 Rate Blood Pressure 114/71 113/77 118/74 O2 Sat by Pulse 100 100 100 Oximetry Constitutional: no acute distress, asleep, other (middle aged but chronically ill looking CM; Atraumatic) Eyes: non-icteric ENT: oropharynx moist, other (mallampati 2) Neck: supple, no lymphadenopathy, no JVD Effort: normal Ascultation: Bilateral: diminished breath sounds, rhonchi Percussion: Bilateral: not dull Cardiovascular: irregular rhythm, other (No R/M) Gastrointestinal: normoactive bowel sounds, soft, non-tender, non-distended Integumentary: other (poor turgor) Extremities: no edema, other (S/P Left BKA) Neurologic: normal mental status, non-focal exam (grossly), pupils equal and round, other (Left hemiparesis, improving) Psychiatric: mood appropriate, affect normal CBC and BMP: 11/06/18 07:00 11/06/18 07:00 ABG, PT/INR, D-dimer: ABG POC ABG pH 7.393 (7.35-7.45) 10/16/18 12:51 POC ABG pCO2 48.9 (35-45) H 10/16/18 12:51 POC ABG pO2 92 (80-105) 10/16/18 12:51 POC ABG HCO3 29.8 (22-26 mml/L) 10/16/18 12:51 POC ABG Total CO2 31 (23-27mmol/L) 10/16/18 12:51 POC ABG O2 Sat 97 10/16/18 12:51 PT/INR, D-dimer PT 13.9 Sec. (12.2-14.9) 10/29/18 07:11 INR 1.01 (0.87-1.13) 10/29/18 07:11 Abnormal lab findings: Abnormal Labs 10/11/18 10/11/18 10/11/18 00:16 00:16 00:16 WBC 20.1 H RBC Hgb Hct MCV 98 H MCHC RDW 15.4 H Plt Count Lymph % (Auto) [place] % (Auto) [place] # Seg Neutrophils % Seg Neuts % (Manual) Lymphocytes % (Manual) 5.0 L Monocytes % (Manual) 25.0 H Seg Neutrophils # Seg Neutrophils # Man 9.2 H Lymphocytes # (Manual) 1.0 L Monocytes # (Manual) 5.0 H APTT Heparin Anti-Xa Level POC ABG pH POC ABG pCO2 POC ABG pO2 Sodium Potassium 5.8 H Chloride Carbon Dioxide 17 L BUN Creatinine 2.2 H Glucose 348 H POC Glucose Lactic Acid 13.70 H* Calcium 7.7 L Phosphorus Total Bilirubin 1.50 H AST 179 H ALT 110 H Total Creatine Kinase 324 H CK-MB (CK-2) Troponin T 0.257 H* Total Protein 5.9 L Albumin 2.9 L HDL Cholesterol 19 L Salicylates Acetaminophen Crossmatch 10/11/18 10/11/18 10/11/18 00:16 00:16 01:21 WBC RBC Hgb Hct MCV MCHC RDW Plt Count Lymph % (Auto) [place] % (Auto) [place] # Seg Neutrophils % Seg Neuts % (Manual) Lymphocytes % (Manual) Monocytes % (Manual) Seg Neutrophils # Seg Neutrophils # Man Lymphocytes # (Manual) Monocytes # (Manual) APTT Heparin Anti-Xa Level POC ABG pH 7.110 L POC ABG pCO2 50.3 H POC ABG pO2 65 L Sodium Potassium Chloride Carbon Dioxide BUN Creatinine Glucose POC Glucose Lactic Acid Calcium Phosphorus Total Bilirubin AST ALT Total Creatine Kinase CK-MB (CK-2) Troponin T Total Protein Albumin HDL Cholesterol Salicylates < 0.3 L Acetaminophen < 5.0 L Crossmatch 10/11/18 10/11/18 10/11/18 01:22 03:27 04:14 WBC RBC Hgb Hct MCV MCHC RDW Plt Count Lymph % (Auto) [place] % (Auto) [place] # Seg Neutrophils % Seg Neuts % (Manual) Lymphocytes % (Manual) Monocytes % (Manual) Seg Neutrophils # Seg Neutrophils # Man Lymphocytes # (Manual) Monocytes # (Manual) APTT Heparin Anti-Xa Level POC ABG pH POC ABG pCO2 POC ABG pO2 Sodium Potassium Chloride Carbon Dioxide BUN Creatinine Glucose POC Glucose Lactic Acid 8.50 H* 4.10 H* Calcium Phosphorus 4.90 H Total Bilirubin AST ALT Total Creatine Kinase CK-MB (CK-2) Troponin T Total Protein Albumin HDL Cholesterol Salicylates Acetaminophen Crossmatch 10/11/18 10/11/18 10/11/18 04:14 04:14 04:14 WBC RBC Hgb Hct MCV MCHC RDW Plt Count Lymph % (Auto) [place] % (Auto) [place] # Seg Neutrophils % Seg Neuts % (Manual) Lymphocytes % (Manual) Monocytes % (Manual) Seg Neutrophils # Seg Neutrophils # Man Lymphocytes # (Manual) Monocytes # (Manual) APTT Heparin Anti-Xa Level POC ABG pH POC ABG pCO2 POC ABG pO2 Sodium Potassium 5.6 H Chloride Carbon Dioxide 19 L BUN Creatinine 1.6 H Glucose 329 H POC Glucose 328 H Lactic Acid Calcium 7.3 L Phosphorus Total Bilirubin AST ALT Total Creatine Kinase CK-MB (CK-2) Troponin T 1.130 H* D Total Protein Albumin HDL Cholesterol Salicylates Acetaminophen Crossmatch 10/11/18 10/11/18 10/11/18 05:10 05:32 05:58 WBC RBC Hgb Hct MCV MCHC RDW Plt Count Lymph % (Auto) [place] % (Auto) [place] # Seg Neutrophils % Seg Neuts % (Manual) Lymphocytes % (Manual) Monocytes % (Manual) Seg Neutrophils # Seg Neutrophils # Man Lymphocytes # (Manual) Monocytes # (Manual) APTT Heparin Anti-Xa Level POC ABG pH 7.259 L POC ABG pCO2 45.6 H POC ABG pO2 Sodium Potassium Chloride 108.6 H Carbon Dioxide 20 L BUN Creatinine 1.8 H Glucose 269 H POC Glucose 273 H Lactic Acid Calcium 7.0 L Phosphorus Total Bilirubin AST ALT Total Creatine Kinase CK-MB (CK-2) Troponin T Total Protein Albumin HDL Cholesterol Salicylates Acetaminophen Crossmatch 10/11/18 10/11/18 10/11/18 05:58 06:39 07:00 WBC RBC Hgb Hct MCV MCHC RDW Plt Count Lymph % (Auto) [place] % (Auto) [place] # Seg Neutrophils % Seg Neuts % (Manual) Lymphocytes % (Manual) Monocytes % (Manual) Seg Neutrophils # Seg Neutrophils # Man Lymphocytes # (Manual) Monocytes # (Manual) APTT Heparin Anti-Xa Level POC ABG pH POC ABG pCO2 POC ABG pO2 Sodium Potassium Chloride Carbon Dioxide BUN Creatinine Glucose POC Glucose 247 H Lactic Acid 3.20 H* 3.30 H* Calcium Phosphorus Total Bilirubin AST ALT Total Creatine Kinase CK-MB (CK-2) Troponin T Total Protein Albumin HDL Cholesterol Salicylates Acetaminophen Crossmatch 10/11/18 10/11/18 10/11/18 07:00 07:30 07:36 WBC RBC Hgb Hct MCV MCHC RDW Plt Count Lymph % (Auto) [place] % (Auto) [place] # Seg Neutrophils % Seg Neuts % (Manual) Lymphocytes % (Manual) Monocytes % (Manual) Seg Neutrophils # Seg Neutrophils # Man Lymphocytes # (Manual) Monocytes # (Manual) APTT Heparin Anti-Xa Level POC ABG pH POC ABG pCO2 POC ABG pO2 Sodium 146 H Potassium Chloride 112.1 H Carbon Dioxide 21 L BUN Creatinine 1.6 H Glucose 218 H POC Glucose Lactic Acid 3.20 H* Calcium 7.0 L Phosphorus Total Bilirubin AST ALT Total Creatine Kinase CK-MB (CK-2) Troponin T 1.020 H* Total Protein Albumin HDL Cholesterol Salicylates Acetaminophen Crossmatch 10/11/18 10/11/18 10/11/18 07:43 08:29 08:29 WBC RBC Hgb 16.2 H Hct 49.9 H D MCV MCHC RDW Plt Count Lymph % (Auto) [place] % (Auto) [place] # Seg Neutrophils % Seg Neuts % (Manual) Lymphocytes % (Manual) Monocytes % (Manual) Seg Neutrophils # Seg Neutrophils # Man Lymphocytes # (Manual) Monocytes # (Manual) APTT Heparin Anti-Xa Level POC ABG pH POC ABG pCO2 POC ABG pO2 Sodium Potassium Chloride Carbon Dioxide BUN Creatinine Glucose POC Glucose 174 H Lactic Acid 3.90 H* Calcium Phosphorus Total Bilirubin AST ALT Total Creatine Kinase CK-MB (CK-2) Troponin T Total Protein Albumin HDL Cholesterol Salicylates Acetaminophen Crossmatch 10/11/18 10/11/18 10/11/18 08:29 08:42 11:05 WBC RBC Hgb Hct MCV MCHC RDW Plt Count Lymph % (Auto) [place] % (Auto) [place] # Seg Neutrophils % Seg Neuts % (Manual) Lymphocytes % (Manual) Monocytes % (Manual) Seg Neutrophils # Seg Neutrophils # Man Lymphocytes # (Manual) Monocytes # (Manual) APTT 24.1 L Heparin Anti-Xa Level POC ABG pH POC ABG pCO2 POC ABG pO2 Sodium 147 H Potassium Chloride 113.3 H Carbon Dioxide 21 L BUN Creatinine 1.7 H Glucose 119 H POC Glucose 164 H Lactic Acid Calcium 7.7 L Phosphorus Total Bilirubin AST ALT Total Creatine Kinase CK-MB (CK-2) Troponin T Total Protein Albumin HDL Cholesterol Salicylates Acetaminophen Crossmatch 10/11/18 10/11/18 10/11/18 11:05 11:06 12:30 WBC RBC Hgb Hct MCV MCHC RDW Plt Count Lymph % (Auto) [place] % (Auto) [place] # Seg Neutrophils % Seg Neuts % (Manual) Lymphocytes % (Manual) Monocytes % (Manual) Seg Neutrophils # Seg Neutrophils # Man Lymphocytes # (Manual) Monocytes # (Manual) APTT Heparin Anti-Xa Level POC ABG pH POC ABG pCO2 POC ABG pO2 Sodium 148 H Potassium Chloride 113.4 H Carbon Dioxide 21 L BUN Creatinine 1.6 H Glucose 119 H POC Glucose 116 H Lactic Acid 3.20 H* Calcium 7.5 L Phosphorus Total Bilirubin AST ALT Total Creatine Kinase CK-MB (CK-2) Troponin T Total Protein Albumin HDL Cholesterol Salicylates Acetaminophen Crossmatch 10/11/18 10/11/18 10/11/18 12:30 13:16 13:25 WBC RBC Hgb Hct MCV MCHC RDW Plt Count Lymph % (Auto) [place] % (Auto) [place] # Seg Neutrophils % Seg Neuts % (Manual) Lymphocytes % (Manual) Monocytes % (Manual) Seg Neutrophils # Seg Neutrophils # Man Lymphocytes # (Manual) Monocytes # (Manual) APTT Heparin Anti-Xa Level POC ABG pH 7.247 L POC ABG pCO2 48.4 H POC ABG pO2 Sodium Potassium Chloride Carbon Dioxide BUN Creatinine Glucose POC Glucose 112 H Lactic Acid 2.70 H* Calcium Phosphorus Total Bilirubin AST ALT Total Creatine Kinase CK-MB (CK-2) Troponin T Total Protein Albumin HDL Cholesterol Salicylates Acetaminophen Crossmatch 10/11/18 10/11/18 10/11/18 14:41 15:27 16:13 WBC RBC Hgb Hct MCV MCHC RDW Plt Count Lymph % (Auto) [place] % (Auto) [place] # Seg Neutrophils % Seg Neuts % (Manual) Lymphocytes % (Manual) Monocytes % (Manual) Seg Neutrophils # Seg Neutrophils # Man Lymphocytes # (Manual) Monocytes # (Manual) APTT Heparin Anti-Xa Level POC ABG pH POC ABG pCO2 POC ABG pO2 Sodium Potassium Chloride Carbon Dioxide BUN Creatinine Glucose POC Glucose 127 H 141 H 134 H Lactic Acid Calcium Phosphorus Total Bilirubin AST ALT Total Creatine Kinase CK-MB (CK-2) Troponin T Total Protein Albumin HDL Cholesterol Salicylates Acetaminophen Crossmatch 10/11/18 10/11/18 10/11/18 17:18 18:23 19:38 WBC RBC Hgb Hct MCV MCHC RDW Plt Count Lymph % (Auto) [place] % (Auto) [place] # Seg Neutrophils % Seg Neuts % (Manual) Lymphocytes % (Manual) Monocytes % (Manual) Seg Neutrophils # Seg Neutrophils # Man Lymphocytes # (Manual) Monocytes # (Manual) APTT Heparin Anti-Xa Level POC ABG pH POC ABG pCO2 POC ABG pO2 Sodium 148 H Potassium Chloride 112.7 H Carbon Dioxide BUN 23 H Creatinine Glucose 143 H POC Glucose 132 H 129 H Lactic Acid Calcium 7.9 L Phosphorus Total Bilirubin AST ALT Total Creatine Kinase CK-MB (CK-2) Troponin T Total Protein Albumin HDL Cholesterol Salicylates Acetaminophen Crossmatch 10/11/18 10/11/18 10/11/18 20:19 20:36 21:01 WBC RBC Hgb Hct MCV MCHC RDW Plt Count Lymph % (Auto) [place] % (Auto) [place] # Seg Neutrophils % Seg Neuts % (Manual) Lymphocytes % (Manual) Monocytes % (Manual) Seg Neutrophils # Seg Neutrophils # Man Lymphocytes # (Manual) Monocytes # (Manual) APTT Heparin Anti-Xa Level POC ABG pH 7.281 L POC ABG pCO2 POC ABG pO2 Sodium Potassium Chloride Carbon Dioxide BUN Creatinine Glucose POC Glucose 129 H 151 H Lactic Acid Calcium Phosphorus Total Bilirubin AST ALT Total Creatine Kinase CK-MB (CK-2) Troponin T Total Protein Albumin HDL Cholesterol Salicylates Acetaminophen Crossmatch 10/11/18 10/11/18 10/12/18 22:04 23:15 01:18 WBC RBC Hgb Hct MCV MCHC RDW Plt Count Lymph % (Auto) [place] % (Auto) [place] # Seg Neutrophils % Seg Neuts % (Manual) Lymphocytes % (Manual) Monocytes % (Manual) Seg Neutrophils # Seg Neutrophils # Man Lymphocytes # (Manual) Monocytes # (Manual) APTT Heparin Anti-Xa Level POC ABG pH POC ABG pCO2 POC ABG pO2 Sodium Potassium Chloride Carbon Dioxide BUN Creatinine Glucose POC Glucose 147 H 143 H 158 H Lactic Acid Calcium Phosphorus Total Bilirubin AST ALT Total Creatine Kinase CK-MB (CK-2) Troponin T Total Protein Albumin HDL Cholesterol Salicylates Acetaminophen Crossmatch 10/12/18 10/12/18 10/12/18 02:13 03:18 04:04 WBC RBC Hgb Hct MCV MCHC RDW Plt Count Lymph % (Auto) [place] % (Auto) [place] # Seg Neutrophils % Seg Neuts % (Manual) Lymphocytes % (Manual) Monocytes % (Manual) Seg Neutrophils # Seg Neutrophils # Man Lymphocytes # (Manual) Monocytes # (Manual) APTT Heparin Anti-Xa Level POC ABG pH POC ABG pCO2 POC ABG pO2 Sodium 147 H Potassium Chloride 111.1 H Carbon Dioxide BUN 30 H Creatinine 2.0 H Glucose 154 H POC Glucose 148 H 142 H Lactic Acid Calcium 8.1 L Phosphorus Total Bilirubin AST 269 H ALT 204 H Total Creatine Kinase 3647 H CK-MB (CK-2) 48.3 H Troponin T 2.230 H* D Total Protein 5.8 L Albumin 2.6 L HDL Cholesterol Salicylates Acetaminophen Crossmatch 10/12/18 10/12/18 10/12/18 04:04 04:08 04:19 WBC 24.4 H RBC Hgb Hct MCV MCHC RDW Plt Count Lymph % (Auto) [place] % (Auto) [place] # Seg Neutrophils % Seg Neuts % (Manual) 32.0 L Lymphocytes % (Manual) Monocytes % (Manual) 8.0 H Seg Neutrophils # Seg Neutrophils # Man 7.8 H Lymphocytes # (Manual) Monocytes # (Manual) 2.0 H APTT Heparin Anti-Xa Level POC ABG pH 7.317 L POC ABG pCO2 49.3 H POC ABG pO2 Sodium Potassium Chloride Carbon Dioxide BUN Creatinine Glucose POC Glucose 143 H Lactic Acid Calcium Phosphorus Total Bilirubin AST ALT Total Creatine Kinase CK-MB (CK-2) Troponin T Total Protein Albumin HDL Cholesterol Salicylates Acetaminophen Crossmatch 10/12/18 10/12/18 10/12/18 05:29 06:52 08:09 WBC RBC Hgb Hct MCV MCHC RDW Plt Count Lymph % (Auto) [place] % (Auto) [place] # Seg Neutrophils % Seg Neuts % (Manual) Lymphocytes % (Manual) Monocytes % (Manual) Seg Neutrophils # Seg Neutrophils # Man Lymphocytes # (Manual) Monocytes # (Manual) APTT Heparin Anti-Xa Level POC ABG pH 7.322 L POC ABG pCO2 46.5 H POC ABG pO2 Sodium Potassium Chloride Carbon Dioxide BUN Creatinine Glucose POC Glucose 196 H 226 H Lactic Acid Calcium Phosphorus Total Bilirubin AST ALT Total Creatine Kinase CK-MB (CK-2) Troponin T Total Protein Albumin HDL Cholesterol Salicylates Acetaminophen Crossmatch 10/12/18 10/12/18 10/12/18 08:38 10:03 15:50 WBC RBC Hgb Hct MCV MCHC RDW Plt Count Lymph % (Auto) [place] % (Auto) [place] # Seg Neutrophils % Seg Neuts % (Manual) Lymphocytes % (Manual) Monocytes % (Manual) Seg Neutrophils # Seg Neutrophils # Man Lymphocytes # (Manual) Monocytes # (Manual) APTT Heparin Anti-Xa Level POC ABG pH POC ABG pCO2 POC ABG pO2 Sodium Potassium Chloride Carbon Dioxide BUN Creatinine Glucose POC Glucose 138 H 148 H 221 H Lactic Acid Calcium Phosphorus Total Bilirubin AST ALT Total Creatine Kinase CK-MB (CK-2) Troponin T Total Protein Albumin HDL Cholesterol Salicylates Acetaminophen Crossmatch 10/12/18 10/12/18 10/12/18 18:39 20:56 21:34 WBC RBC Hgb Hct MCV MCHC RDW Plt Count Lymph % (Auto) [place] % (Auto) [place] # Seg Neutrophils % Seg Neuts % (Manual) Lymphocytes % (Manual) Monocytes % (Manual) Seg Neutrophils # Seg Neutrophils # Man Lymphocytes # (Manual) Monocytes # (Manual) APTT Heparin Anti-Xa Level POC ABG pH 7.336 L POC ABG pCO2 46.0 H POC ABG pO2 Sodium Potassium Chloride Carbon Dioxide BUN Creatinine Glucose POC Glucose 255 H 260 H Lactic Acid Calcium Phosphorus Total Bilirubin AST ALT Total Creatine Kinase CK-MB (CK-2) Troponin T Total Protein Albumin HDL Cholesterol Salicylates Acetaminophen Crossmatch 10/13/18 10/13/18 10/13/18 02:29 05:09 05:40 WBC 17.0 H RBC Hgb Hct MCV MCHC RDW Plt Count Lymph % (Auto) [place] % (Auto) 9.2 H [place] # 1.6 H Seg Neutrophils % 76.2 H Seg Neuts % (Manual) Lymphocytes % (Manual) Monocytes % (Manual) Seg Neutrophils # 12.9 H Seg Neutrophils # Man Lymphocytes # (Manual) Monocytes # (Manual) APTT Heparin Anti-Xa Level POC ABG pH POC ABG pCO2 POC ABG pO2 Sodium Potassium Chloride Carbon Dioxide BUN Creatinine Glucose POC Glucose 216 H 249 H Lactic Acid Calcium Phosphorus Total Bilirubin AST ALT Total Creatine Kinase CK-MB (CK-2) Troponin T Total Protein Albumin HDL Cholesterol Salicylates Acetaminophen Crossmatch 10/13/18 10/13/18 10/13/18 05:40 05:40 09:46 WBC RBC Hgb Hct MCV MCHC RDW Plt Count Lymph % (Auto) [place] % (Auto) [place] # Seg Neutrophils % Seg Neuts % (Manual) Lymphocytes % (Manual) Monocytes % (Manual) Seg Neutrophils # Seg Neutrophils # Man Lymphocytes # (Manual) Monocytes # (Manual) APTT Heparin Anti-Xa Level POC ABG pH POC ABG pCO2 POC ABG pO2 Sodium 146 H Potassium Chloride 109.8 H Carbon Dioxide BUN 35 H Creatinine Glucose 245 H POC Glucose 235 H Lactic Acid Calcium 7.9 L Phosphorus Total Bilirubin AST ALT Total Creatine Kinase CK-MB (CK-2) Troponin T 0.952 H* D Total Protein Albumin HDL Cholesterol Salicylates Acetaminophen Crossmatch 10/13/18 10/13/18 10/13/18 13:58 16:15 17:30 WBC RBC Hgb Hct MCV MCHC RDW Plt Count Lymph % (Auto) [place] % (Auto) [place] # Seg Neutrophils % Seg Neuts % (Manual) Lymphocytes % (Manual) Monocytes % (Manual) Seg Neutrophils # Seg Neutrophils # Man Lymphocytes # (Manual) Monocytes # (Manual) APTT Heparin Anti-Xa Level POC ABG pH POC ABG pCO2 51.2 H POC ABG pO2 Sodium Potassium Chloride Carbon Dioxide BUN Creatinine Glucose POC Glucose 139 H Lactic Acid Calcium Phosphorus Total Bilirubin AST ALT Total Creatine Kinase CK-MB (CK-2) Troponin T 0.816 H* Total Protein Albumin HDL Cholesterol Salicylates Acetaminophen Crossmatch 10/13/18 10/14/18 10/14/18 21:25 01:49 04:52 WBC RBC Hgb Hct MCV MCHC RDW Plt Count Lymph % (Auto) [place] % (Auto) [place] # Seg Neutrophils % Seg Neuts % (Manual) Lymphocytes % (Manual) Monocytes % (Manual) Seg Neutrophils # Seg Neutrophils # Man Lymphocytes # (Manual) Monocytes # (Manual) APTT Heparin Anti-Xa Level POC ABG pH POC ABG pCO2 56.0 H POC ABG pO2 Sodium Potassium Chloride Carbon Dioxide BUN Creatinine Glucose POC Glucose 205 H 166 H Lactic Acid Calcium Phosphorus Total Bilirubin AST ALT Total Creatine Kinase CK-MB (CK-2) Troponin T Total Protein Albumin HDL Cholesterol Salicylates Acetaminophen Crossmatch 10/14/18 10/14/18 10/14/18 05:32 09:45 09:45 WBC RBC Hgb 11.4 L Hct 34.5 L MCV MCHC RDW Plt Count 139 L Lymph % (Auto) [place] % (Auto) [place] # Seg Neutrophils % Seg Neuts % (Manual) Lymphocytes % (Manual) Monocytes % (Manual) Seg Neutrophils # Seg Neutrophils # Man Lymphocytes # (Manual) Monocytes # (Manual) APTT Heparin Anti-Xa Level POC ABG pH POC ABG pCO2 POC ABG pO2 Sodium 148 H Potassium Chloride 107.3 H Carbon Dioxide 34 H D BUN Creatinine 0.7 L D Glucose 191 H POC Glucose 164 H Lactic Acid Calcium 7.3 L Phosphorus Total Bilirubin AST 110 H ALT 91 H Total Creatine Kinase CK-MB (CK-2) Troponin T Total Protein 4.9 L Albumin 2.0 L HDL Cholesterol Salicylates Acetaminophen Crossmatch 10/14/18 10/14/18 10/14/18 10:54 12:20 18:30 WBC RBC Hgb Hct MCV MCHC RDW Plt Count Lymph % (Auto) [place] % (Auto) [place] # Seg Neutrophils % Seg Neuts % (Manual) Lymphocytes % (Manual) Monocytes % (Manual) Seg Neutrophils # Seg Neutrophils # Man Lymphocytes # (Manual) Monocytes # (Manual) APTT Heparin Anti-Xa Level POC ABG pH POC ABG pCO2 POC ABG pO2 Sodium Potassium Chloride Carbon Dioxide BUN Creatinine Glucose POC Glucose 173 H 158 H 108 H Lactic Acid Calcium Phosphorus Total Bilirubin AST ALT Total Creatine Kinase CK-MB (CK-2) Troponin T Total Protein Albumin HDL Cholesterol Salicylates Acetaminophen Crossmatch 10/14/18 10/15/18 10/15/18 21:54 02:12 04:19 WBC RBC Hgb Hct MCV MCHC RDW Plt Count Lymph % (Auto) [place] % (Auto) [place] # Seg Neutrophils % Seg Neuts % (Manual) Lymphocytes % (Manual) Monocytes % (Manual) Seg Neutrophils # Seg Neutrophils # Man Lymphocytes # (Manual) Monocytes # (Manual) APTT Heparin Anti-Xa Level POC ABG pH 7.491 H POC ABG pCO2 45.1 H POC ABG pO2 Sodium Potassium Chloride Carbon Dioxide BUN Creatinine Glucose POC Glucose 110 H 164 H Lactic Acid Calcium Phosphorus Total Bilirubin AST ALT Total Creatine Kinase CK-MB (CK-2) Troponin T Total Protein Albumin HDL Cholesterol Salicylates Acetaminophen Crossmatch 10/15/18 10/15/18 10/15/18 04:55 05:43 06:20 WBC RBC Hgb 11.7 L Hct 34.7 L MCV MCHC RDW Plt Count Lymph % (Auto) [place] % (Auto) [place] # Seg Neutrophils % Seg Neuts % (Manual) Lymphocytes % (Manual) Monocytes % (Manual) Seg Neutrophils # Seg Neutrophils # Man Lymphocytes # (Manual) Monocytes # (Manual) APTT Heparin Anti-Xa Level POC ABG pH POC ABG pCO2 47.3 H POC ABG pO2 78 L Sodium Potassium Chloride Carbon Dioxide BUN Creatinine Glucose POC Glucose 250 H Lactic Acid Calcium Phosphorus Total Bilirubin AST ALT Total Creatine Kinase CK-MB (CK-2) Troponin T Total Protein Albumin HDL Cholesterol Salicylates Acetaminophen Crossmatch 10/15/18 10/15/18 10/15/18 12:00 12:00 12:11 WBC RBC Hgb 11.5 L Hct 34.0 L MCV MCHC RDW Plt Count Lymph % (Auto) [place] % (Auto) [place] # Seg Neutrophils % Seg Neuts % (Manual) Lymphocytes % (Manual) Monocytes % (Manual) Seg Neutrophils # Seg Neutrophils # Man Lymphocytes # (Manual) Monocytes # (Manual) APTT Heparin Anti-Xa Level POC ABG pH POC ABG pCO2 POC ABG pO2 Sodium 147 H Potassium Chloride 108.5 H Carbon Dioxide BUN Creatinine 0.7 L Glucose 209 H POC Glucose 197 H Lactic Acid Calcium 7.3 L Phosphorus Total Bilirubin AST ALT Total Creatine Kinase CK-MB (CK-2) Troponin T Total Protein Albumin HDL Cholesterol Salicylates Acetaminophen Crossmatch 10/15/18 10/15/18 10/15/18 15:48 18:34 21:29 WBC RBC Hgb Hct MCV MCHC RDW Plt Count Lymph % (Auto) [place] % (Auto) [place] # Seg Neutrophils % Seg Neuts % (Manual) Lymphocytes % (Manual) Monocytes % (Manual) Seg Neutrophils # Seg Neutrophils # Man Lymphocytes # (Manual) Monocytes # (Manual) APTT Heparin Anti-Xa Level POC ABG pH POC ABG pCO2 POC ABG pO2 Sodium Potassium Chloride Carbon Dioxide BUN Creatinine Glucose POC Glucose 220 H 249 H 209 H Lactic Acid Calcium Phosphorus Total Bilirubin AST ALT Total Creatine Kinase CK-MB (CK-2) Troponin T Total Protein Albumin HDL Cholesterol Salicylates Acetaminophen Crossmatch 10/16/18 10/16/18 10/16/18 02:16 03:50 05:57 WBC RBC Hgb Hct MCV MCHC RDW Plt Count Lymph % (Auto) [place] % (Auto) [place] # Seg Neutrophils % Seg Neuts % (Manual) Lymphocytes % (Manual) Monocytes % (Manual) Seg Neutrophils # Seg Neutrophils # Man Lymphocytes # (Manual) Monocytes # (Manual) APTT Heparin Anti-Xa Level POC ABG pH POC ABG pCO2 55.8 H POC ABG pO2 Sodium Potassium Chloride Carbon Dioxide BUN Creatinine Glucose POC Glucose 110 H 209 H Lactic Acid Calcium Phosphorus Total Bilirubin AST ALT Total Creatine Kinase CK-MB (CK-2) Troponin T Total Protein Albumin HDL Cholesterol Salicylates Acetaminophen Crossmatch 10/16/18 10/16/18 10/16/18 10:51 12:51 15:01 WBC RBC Hgb Hct MCV MCHC RDW Plt Count Lymph % (Auto) [place] % (Auto) [place] # Seg Neutrophils % Seg Neuts % (Manual) Lymphocytes % (Manual) Monocytes % (Manual) Seg Neutrophils # Seg Neutrophils # Man Lymphocytes # (Manual) Monocytes # (Manual) APTT Heparin Anti-Xa Level POC ABG pH POC ABG pCO2 48.9 H POC ABG pO2 Sodium Potassium Chloride Carbon Dioxide BUN Creatinine Glucose POC Glucose 198 H 196 H Lactic Acid Calcium Phosphorus Total Bilirubin AST ALT Total Creatine Kinase CK-MB (CK-2) Troponin T Total Protein Albumin HDL Cholesterol Salicylates Acetaminophen Crossmatch 10/16/18 10/16/18 10/17/18 17:34 21:59 02:17 WBC RBC Hgb Hct MCV MCHC RDW Plt Count Lymph % (Auto) [place] % (Auto) [place] # Seg Neutrophils % Seg Neuts % (Manual) Lymphocytes % (Manual) Monocytes % (Manual) Seg Neutrophils # Seg Neutrophils # Man Lymphocytes # (Manual) Monocytes # (Manual) APTT Heparin Anti-Xa Level POC ABG pH POC ABG pCO2 POC ABG pO2 Sodium Potassium Chloride Carbon Dioxide BUN Creatinine Glucose POC Glucose 179 H 139 H 135 H Lactic Acid Calcium Phosphorus Total Bilirubin AST ALT Total Creatine Kinase CK-MB (CK-2) Troponin T Total Protein Albumin HDL Cholesterol Salicylates Acetaminophen Crossmatch 10/17/18 10/17/18 10/17/18 05:40 05:47 10:18 WBC RBC Hgb 11.3 L Hct 33.2 L MCV MCHC RDW Plt Count Lymph % (Auto) [place] % (Auto) [place] # Seg Neutrophils % Seg Neuts % (Manual) Lymphocytes % (Manual) Monocytes % (Manual) Seg Neutrophils # Seg Neutrophils # Man Lymphocytes # (Manual) Monocytes # (Manual) APTT Heparin Anti-Xa Level POC ABG pH POC ABG pCO2 POC ABG pO2 Sodium Potassium Chloride Carbon Dioxide BUN Creatinine Glucose POC Glucose 125 H 139 H Lactic Acid Calcium Phosphorus Total Bilirubin AST ALT Total Creatine Kinase CK-MB (CK-2) Troponin T Total Protein Albumin HDL Cholesterol Salicylates Acetaminophen Crossmatch 10/17/18 10/18/18 10/18/18 23:11 08:49 11:31 WBC RBC Hgb Hct MCV MCHC RDW Plt Count Lymph % (Auto) [place] % (Auto) [place] # Seg Neutrophils % Seg Neuts % (Manual) Lymphocytes % (Manual) Monocytes % (Manual) Seg Neutrophils # Seg Neutrophils # Man Lymphocytes # (Manual) Monocytes # (Manual) APTT Heparin Anti-Xa Level POC ABG pH POC ABG pCO2 POC ABG pO2 Sodium Potassium Chloride Carbon Dioxide BUN Creatinine Glucose POC Glucose 165 H 125 H 182 H Lactic Acid Calcium Phosphorus Total Bilirubin AST ALT Total Creatine Kinase CK-MB (CK-2) Troponin T Total Protein Albumin HDL Cholesterol Salicylates Acetaminophen Crossmatch 10/18/18 10/18/18 10/19/18 16:12 21:02 00:28 WBC RBC Hgb 11.4 L Hct 33.6 L MCV MCHC RDW Plt Count Lymph % (Auto) [place] % (Auto) 14.0 H [place] # 1.2 H Seg Neutrophils % Seg Neuts % (Manual) Lymphocytes % (Manual) Monocytes % (Manual) Seg Neutrophils # Seg Neutrophils # Man Lymphocytes # (Manual) Monocytes # (Manual) APTT Heparin Anti-Xa Level POC ABG pH POC ABG pCO2 POC ABG pO2 Sodium Potassium Chloride Carbon Dioxide BUN Creatinine Glucose POC Glucose 168 H 324 H Lactic Acid Calcium Phosphorus Total Bilirubin AST ALT Total Creatine Kinase CK-MB (CK-2) Troponin T Total Protein Albumin HDL Cholesterol Salicylates Acetaminophen Crossmatch 10/19/18 10/19/18 10/19/18 04:57 04:57 07:32 WBC RBC Hgb 11.7 L Hct 34.0 L MCV MCHC RDW Plt Count Lymph % (Auto) [place] % (Auto) [place] # Seg Neutrophils % Seg Neuts % (Manual) Lymphocytes % (Manual) Monocytes % (Manual) Seg Neutrophils # Seg Neutrophils # Man Lymphocytes # (Manual) Monocytes # (Manual) APTT Heparin Anti-Xa Level POC ABG pH POC ABG pCO2 POC ABG pO2 Sodium Potassium 3.5 L Chloride 108.6 H Carbon Dioxide BUN Creatinine 0.6 L Glucose POC Glucose 159 H Lactic Acid Calcium 7.9 L Phosphorus Total Bilirubin AST ALT Total Creatine Kinase CK-MB (CK-2) Troponin T Total Protein Albumin HDL Cholesterol Salicylates Acetaminophen Crossmatch 10/19/18 10/19/18 10/20/18 16:25 20:59 12:04 WBC RBC Hgb Hct MCV MCHC RDW Plt Count Lymph % (Auto) [place] % (Auto) [place] # Seg Neutrophils % Seg Neuts % (Manual) Lymphocytes % (Manual) Monocytes % (Manual) Seg Neutrophils # Seg Neutrophils # Man Lymphocytes # (Manual) Monocytes # (Manual) APTT Heparin Anti-Xa Level POC ABG pH POC ABG pCO2 POC ABG pO2 Sodium Potassium Chloride Carbon Dioxide BUN Creatinine Glucose POC Glucose 134 H 110 H 338 H Lactic Acid Calcium Phosphorus Total Bilirubin AST ALT Total Creatine Kinase CK-MB (CK-2) Troponin T Total Protein Albumin HDL Cholesterol Salicylates Acetaminophen Crossmatch 10/20/18 10/20/18 10/21/18 17:55 22:07 04:59 WBC RBC Hgb 11.6 L Hct 33.9 L MCV MCHC RDW Plt Count Lymph % (Auto) [place] % (Auto) 9.7 H [place] # 0.9 H Seg Neutrophils % 70.7 H Seg Neuts % (Manual) Lymphocytes % (Manual) Monocytes % (Manual) Seg Neutrophils # Seg Neutrophils # Man Lymphocytes # (Manual) Monocytes # (Manual) APTT Heparin Anti-Xa Level POC ABG pH POC ABG pCO2 POC ABG pO2 Sodium Potassium Chloride Carbon Dioxide BUN Creatinine Glucose POC Glucose 146 H 164 H Lactic Acid Calcium Phosphorus Total Bilirubin AST ALT Total Creatine Kinase CK-MB (CK-2) Troponin T Total Protein Albumin HDL Cholesterol Salicylates Acetaminophen Crossmatch 10/21/18 10/21/18 10/21/18 04:59 07:52 11:39 WBC RBC Hgb Hct MCV MCHC RDW Plt Count Lymph % (Auto) [place] % (Auto) [place] # Seg Neutrophils % Seg Neuts % (Manual) Lymphocytes % (Manual) Monocytes % (Manual) Seg Neutrophils # Seg Neutrophils # Man Lymphocytes # (Manual) Monocytes # (Manual) APTT Heparin Anti-Xa Level POC ABG pH POC ABG pCO2 POC ABG pO2 Sodium Potassium 3.5 L Chloride 107.1 H Carbon Dioxide BUN Creatinine 0.5 L Glucose 158 H POC Glucose 142 H 194 H Lactic Acid Calcium 7.5 L Phosphorus Total Bilirubin AST ALT Total Creatine Kinase CK-MB (CK-2) Troponin T Total Protein 5.6 L Albumin 2.0 L HDL Cholesterol Salicylates Acetaminophen Crossmatch 05/12/19 05/12/19 05/13/19 17:05 20:37 05:38 WBC RBC 3.48 L Hgb 10.8 L Hct 31.7 L MCV MCHC RDW Plt Count 458 H Lymph % (Auto) [place] % (Auto) 10.5 H [place] # Seg Neutrophils % Seg Neuts % (Manual) Lymphocytes % (Manual) Monocytes % (Manual) Seg Neutrophils # Seg Neutrophils # Man Lymphocytes # (Manual) Monocytes # (Manual) APTT Heparin Anti-Xa Level POC ABG pH POC ABG pCO2 POC ABG pO2 Sodium Potassium Chloride Carbon Dioxide BUN Creatinine Glucose POC Glucose 167 H 182 H Lactic Acid Calcium Phosphorus Total Bilirubin AST ALT Total Creatine Kinase CK-MB (CK-2) Troponin T Total Protein Albumin HDL Cholesterol Salicylates Acetaminophen Crossmatch 10/22/18 10/22/18 10/22/18 05:38 07:48 12:08 WBC RBC Hgb Hct MCV MCHC RDW Plt Count Lymph % (Auto) [place] % (Auto) [place] # Seg Neutrophils % Seg Neuts % (Manual) Lymphocytes % (Manual) Monocytes % (Manual) Seg Neutrophils # Seg Neutrophils # Man Lymphocytes # (Manual) Monocytes # (Manual) APTT Heparin Anti-Xa Level POC ABG pH POC ABG pCO2 POC ABG pO2 Sodium Potassium Chloride Carbon Dioxide BUN Creatinine 0.5 L Glucose 146 H POC Glucose 130 H 167 H Lactic Acid Calcium 7.8 L Phosphorus Total Bilirubin AST 41 H ALT Total Creatine Kinase CK-MB (CK-2) Troponin T Total Protein 5.5 L Albumin 2.1 L HDL Cholesterol Salicylates Acetaminophen Crossmatch 10/22/18 10/22/18 10/23/18 16:45 21:42 04:38 WBC RBC Hgb 11.7 L Hct 34.7 L MCV MCHC RDW Plt Count 523 H Lymph % (Auto) [place] % (Auto) 8.7 H [place] # Seg Neutrophils % 71.6 H Seg Neuts % (Manual) Lymphocytes % (Manual) Monocytes % (Manual) Seg Neutrophils # Seg Neutrophils # Man Lymphocytes # (Manual) Monocytes # (Manual) APTT Heparin Anti-Xa Level POC ABG pH POC ABG pCO2 POC ABG pO2 Sodium Potassium Chloride Carbon Dioxide BUN Creatinine Glucose POC Glucose 113 H 134 H Lactic Acid Calcium Phosphorus Total Bilirubin AST ALT Total Creatine Kinase CK-MB (CK-2) Troponin T Total Protein Albumin HDL Cholesterol Salicylates Acetaminophen Crossmatch 10/23/18 10/23/1819 04:38 07:56 11:15 WBC RBC Hgb Hct MCV MCHC RDW Plt Count Lymph % (Auto) [place] % (Auto) [place] # Seg Neutrophils % Seg Neuts % (Manual) Lymphocytes % (Manual) Monocytes % (Manual) Seg Neutrophils # Seg Neutrophils # Man Lymphocytes # (Manual) Monocytes # (Manual) APTT Heparin Anti-Xa Level POC ABG pH POC ABG pCO2 POC ABG pO2 Sodium Potassium Chloride Carbon Dioxide BUN 7 L Creatinine 0.5 L Glucose 150 H POC Glucose 123 H 212 H Lactic Acid Calcium 8.0 L Phosphorus Total Bilirubin AST 55 H ALT Total Creatine Kinase CK-MB (CK-2) Troponin T Total Protein 6.2 L Albumin 2.3 L HDL Cholesterol Salicylates Acetaminophen Crossmatch 10/23/18 10/23/18 10/24/18 16:06 22:01 05:56 WBC 11.8 H RBC 3.64 L Hgb 11.2 L Hct 33.4 L MCV MCHC RDW Plt Count 564 H Lymph % (Auto) 11.3 L [place] % (Auto) [place] # Seg Neutrophils % 80.2 H Seg Neuts % (Manual) Lymphocytes % (Manual) Monocytes % (Manual) Seg Neutrophils # 9.4 H Seg Neutrophils # Man Lymphocytes # (Manual) Monocytes # (Manual) APTT Heparin Anti-Xa Level POC ABG pH POC ABG pCO2 POC ABG pO2 Sodium Potassium Chloride Carbon Dioxide BUN Creatinine Glucose POC Glucose 152 H 235 H Lactic Acid Calcium Phosphorus Total Bilirubin AST ALT Total Creatine Kinase CK-MB (CK-2) Troponin T Total Protein Albumin HDL Cholesterol Salicylates Acetaminophen Crossmatch 10/24/18 10/24/18 10/24/18 05:56 07:52 11:58 WBC RBC Hgb Hct MCV MCHC RDW Plt Count Lymph % (Auto) [place] % (Auto) [place] # Seg Neutrophils % Seg Neuts % (Manual) Lymphocytes % (Manual) Monocytes % (Manual) Seg Neutrophils # Seg Neutrophils # Man Lymphocytes # (Manual) Monocytes # (Manual) APTT Heparin Anti-Xa Level POC ABG pH POC ABG pCO2 POC ABG pO2 Sodium Potassium Chloride Carbon Dioxide BUN Creatinine 0.5 L Glucose 175 H POC Glucose 156 H 238 H Lactic Acid Calcium 8.0 L Phosphorus Total Bilirubin AST 44 H ALT Total Creatine Kinase CK-MB (CK-2) Troponin T Total Protein 6.2 L Albumin 2.4 L HDL Cholesterol Salicylates Acetaminophen Crossmatch 10/24/18 10/24/18 10/25/18 16:20 22:13 07:53 WBC RBC Hgb Hct MCV MCHC RDW Plt Count Lymph % (Auto) [place] % (Auto) [place] # Seg Neutrophils % Seg Neuts % (Manual) Lymphocytes % (Manual) Monocytes % (Manual) Seg Neutrophils # Seg Neutrophils # Man Lymphocytes # (Manual) Monocytes # (Manual) APTT Heparin Anti-Xa Level POC ABG pH POC ABG pCO2 POC ABG pO2 Sodium Potassium Chloride Carbon Dioxide BUN Creatinine Glucose POC Glucose 60 L 261 H 211 H Lactic Acid Calcium Phosphorus Total Bilirubin AST ALT Total Creatine Kinase CK-MB (CK-2) Troponin T Total Protein Albumin HDL Cholesterol Salicylates Acetaminophen Crossmatch 10/25/18 10/25/18 10/25/18 11:03 16:02 22:45 WBC RBC Hgb Hct MCV MCHC RDW Plt Count Lymph % (Auto) [place] % (Auto) [place] # Seg Neutrophils % Seg Neuts % (Manual) Lymphocytes % (Manual) Monocytes % (Manual) Seg Neutrophils # Seg Neutrophils # Man Lymphocytes # (Manual) Monocytes # (Manual) APTT Heparin Anti-Xa Level POC ABG pH POC ABG pCO2 POC ABG pO2 Sodium Potassium Chloride Carbon Dioxide BUN Creatinine Glucose POC Glucose 137 H 186 H 140 H Lactic Acid Calcium Phosphorus Total Bilirubin AST ALT Total Creatine Kinase CK-MB (CK-2) Troponin T Total Protein Albumin HDL Cholesterol Salicylates Acetaminophen Crossmatch 10/26/18 10/26/18 10/26/18 08:13 10:08 11:28 WBC RBC Hgb Hct MCV MCHC RDW Plt Count Lymph % (Auto) [place] % (Auto) [place] # Seg Neutrophils % Seg Neuts % (Manual) Lymphocytes % (Manual) Monocytes % (Manual) Seg Neutrophils # Seg Neutrophils # Man Lymphocytes # (Manual) Monocytes # (Manual) APTT Heparin Anti-Xa Level POC ABG pH POC ABG pCO2 POC ABG pO2 Sodium Potassium Chloride Carbon Dioxide BUN Creatinine Glucose POC Glucose 144 H 110 H 201 H Lactic Acid Calcium Phosphorus Total Bilirubin AST ALT Total Creatine Kinase CK-MB (CK-2) Troponin T Total Protein Albumin HDL Cholesterol Salicylates Acetaminophen Crossmatch 10/26/18 10/26/18 10/27/18 16:36 22:29 07:34 WBC RBC Hgb Hct MCV MCHC RDW Plt Count Lymph % (Auto) [place] % (Auto) [place] # Seg Neutrophils % Seg Neuts % (Manual) Lymphocytes % (Manual) Monocytes % (Manual) Seg Neutrophils # Seg Neutrophils # Man Lymphocytes # (Manual) Monocytes # (Manual) APTT Heparin Anti-Xa Level POC ABG pH POC ABG pCO2 POC ABG pO2 Sodium Potassium Chloride Carbon Dioxide BUN Creatinine Glucose POC Glucose 147 H 302 H 182 H Lactic Acid Calcium Phosphorus Total Bilirubin AST ALT Total Creatine Kinase CK-MB (CK-2) Troponin T Total Protein Albumin HDL Cholesterol Salicylates Acetaminophen Crossmatch 10/27/18 10/27/18 10/27/18 11:57 13:33 14:55 WBC RBC Hgb Hct MCV MCHC RDW Plt Count 550 H Lymph % (Auto) [place] % (Auto) [place] # Seg Neutrophils % Seg Neuts % (Manual) Lymphocytes % (Manual) Monocytes % (Manual) Seg Neutrophils # Seg Neutrophils # Man Lymphocytes # (Manual) Monocytes # (Manual) APTT Heparin Anti-Xa Level POC ABG pH POC ABG pCO2 POC ABG pO2 Sodium Potassium Chloride Carbon Dioxide BUN Creatinine Glucose POC Glucose 209 H Lactic Acid Calcium Phosphorus Total Bilirubin AST ALT Total Creatine Kinase CK-MB (CK-2) Troponin T Total Protein Albumin HDL Cholesterol Salicylates Acetaminophen Crossmatch See Detail 10/27/18 10/27/18 10/28/18 17:09 21:45 07:45 WBC RBC Hgb Hct MCV MCHC RDW Plt Count Lymph % (Auto) [place] % (Auto) [place] # Seg Neutrophils % Seg Neuts % (Manual) Lymphocytes % (Manual) Monocytes % (Manual) Seg Neutrophils # Seg Neutrophils # Man Lymphocytes # (Manual) Monocytes # (Manual) APTT Heparin Anti-Xa Level POC ABG pH POC ABG pCO2 POC ABG pO2 Sodium Potassium Chloride Carbon Dioxide BUN Creatinine Glucose POC Glucose 233 H 136 H 201 H Lactic Acid Calcium Phosphorus Total Bilirubin AST ALT Total Creatine Kinase CK-MB (CK-2) Troponin T Total Protein Albumin HDL Cholesterol Salicylates Acetaminophen Crossmatch 10/28/18 10/28/18 10/28/18 11:17 16:34 19:51 WBC RBC Hgb Hct MCV MCHC RDW Plt Count Lymph % (Auto) [place] % (Auto) [place] # Seg Neutrophils % Seg Neuts % (Manual) Lymphocytes % (Manual) Monocytes % (Manual) Seg Neutrophils # Seg Neutrophils # Man Lymphocytes # (Manual) Monocytes # (Manual) APTT Heparin Anti-Xa Level < 0.10 L POC ABG pH POC ABG pCO2 POC ABG pO2 Sodium Potassium Chloride Carbon Dioxide BUN Creatinine Glucose POC Glucose 116 H 168 H Lactic Acid Calcium Phosphorus Total Bilirubin AST ALT Total Creatine Kinase CK-MB (CK-2) Troponin T Total Protein Albumin HDL Cholesterol Salicylates Acetaminophen Crossmatch 10/28/18 10/29/18 10/29/18 21:52 07:11 07:11 WBC RBC Hgb Hct MCV MCHC RDW Plt Count 470 H Lymph % (Auto) [place] % (Auto) [place] # Seg Neutrophils % Seg Neuts % (Manual) Lymphocytes % (Manual) Monocytes % (Manual) Seg Neutrophils # Seg Neutrophils # Man Lymphocytes # (Manual) Monocytes # (Manual) APTT Heparin Anti-Xa Level 0.13 L POC ABG pH POC ABG pCO2 POC ABG pO2 Sodium Potassium Chloride Carbon Dioxide BUN Creatinine Glucose POC Glucose 159 H Lactic Acid Calcium Phosphorus Total Bilirubin AST ALT Total Creatine Kinase CK-MB (CK-2) Troponin T Total Protein Albumin HDL Cholesterol Salicylates Acetaminophen Crossmatch 10/29/18 10/29/18 10/29/18 07:11 07:43 11:29 WBC RBC Hgb Hct MCV MCHC RDW Plt Count Lymph % (Auto) [place] % (Auto) [place] # Seg Neutrophils % Seg Neuts % (Manual) Lymphocytes % (Manual) Monocytes % (Manual) Seg Neutrophils # Seg Neutrophils # Man Lymphocytes # (Manual) Monocytes # (Manual) APTT Heparin Anti-Xa Level POC ABG pH POC ABG pCO2 POC ABG pO2 Sodium Potassium Chloride Carbon Dioxide BUN 7 L Creatinine 0.5 L Glucose 122 H POC Glucose 147 H 165 H Lactic Acid Calcium 8.2 L Phosphorus Total Bilirubin AST ALT Total Creatine Kinase CK-MB (CK-2) Troponin T Total Protein Albumin HDL Cholesterol Salicylates Acetaminophen Crossmatch 10/29/18 10/29/18 10/30/18 19:50 22:11 00:11 WBC RBC Hgb Hct MCV MCHC RDW Plt Count Lymph % (Auto) [place] % (Auto) [place] # Seg Neutrophils % Seg Neuts % (Manual) Lymphocytes % (Manual) Monocytes % (Manual) Seg Neutrophils # Seg Neutrophils # Man Lymphocytes # (Manual) Monocytes # (Manual) APTT Heparin Anti-Xa Level 0.25 L POC ABG pH POC ABG pCO2 POC ABG pO2 Sodium Potassium Chloride Carbon Dioxide BUN Creatinine Glucose POC Glucose 166 H 173 H Lactic Acid Calcium Phosphorus Total Bilirubin AST ALT Total Creatine Kinase CK-MB (CK-2) Troponin T Total Protein Albumin HDL Cholesterol Salicylates Acetaminophen Crossmatch 10/30/18 10/30/18 10/30/18 04:22 04:22 07:47 WBC 27.0 H RBC 3.16 L Hgb 10.0 L Hct 28.8 L D MCV MCHC 35 H RDW Plt Count Lymph % (Auto) [place] % (Auto) [place] # Seg Neutrophils % Seg Neuts % (Manual) Lymphocytes % (Manual) 1.5 L Monocytes % (Manual) Seg Neutrophils # Seg Neutrophils # Man 18.6 H Lymphocytes # (Manual) 0.4 L Monocytes # (Manual) APTT Heparin Anti-Xa Level POC ABG pH POC ABG pCO2 POC ABG pO2 Sodium Potassium Chloride Carbon Dioxide BUN Creatinine Glucose 224 H POC Glucose 168 H Lactic Acid Calcium 7.5 L Phosphorus Total Bilirubin AST ALT Total Creatine Kinase CK-MB (CK-2) Troponin T Total Protein Albumin HDL Cholesterol Salicylates Acetaminophen Crossmatch 10/30/18 10/30/18 10/30/18 07:55 11:20 16:41 WBC RBC Hgb Hct MCV MCHC RDW Plt Count Lymph % (Auto) [place] % (Auto) [place] # Seg Neutrophils % Seg Neuts % (Manual) Lymphocytes % (Manual) Monocytes % (Manual) Seg Neutrophils # Seg Neutrophils # Man Lymphocytes # (Manual) Monocytes # (Manual) APTT Heparin Anti-Xa Level < 0.10 L POC ABG pH POC ABG pCO2 POC ABG pO2 Sodium Potassium Chloride Carbon Dioxide BUN Creatinine Glucose POC Glucose 165 H 142 H Lactic Acid Calcium Phosphorus Total Bilirubin AST ALT Total Creatine Kinase CK-MB (CK-2) Troponin T Total Protein Albumin HDL Cholesterol Salicylates Acetaminophen Crossmatch 10/30/18 10/30/18 10/31/18 20:51 21:20 05:21 WBC RBC Hgb 9.0 L Hct 26.6 L MCV MCHC RDW Plt Count Lymph % (Auto) [place] % (Auto) [place] # Seg Neutrophils % Seg Neuts % (Manual) Lymphocytes % (Manual) Monocytes % (Manual) Seg Neutrophils # Seg Neutrophils # Man Lymphocytes # (Manual) Monocytes # (Manual) APTT Heparin Anti-Xa Level < 0.10 L POC ABG pH POC ABG pCO2 POC ABG pO2 Sodium Potassium Chloride Carbon Dioxide BUN Creatinine Glucose POC Glucose 136 H Lactic Acid Calcium Phosphorus Total Bilirubin AST ALT Total Creatine Kinase CK-MB (CK-2) Troponin T Total Protein Albumin HDL Cholesterol Salicylates Acetaminophen Crossmatch 10/31/18 10/31/18 08:07 10:19 WBC RBC Hgb Hct MCV MCHC RDW Plt Count Lymph % (Auto) [place] % (Auto) [place] # Seg Neutrophils % Seg Neuts % (Manual) Lymphocytes % (Manual) Monocytes % (Manual) Seg Neutrophils # Seg Neutrophils # Man Lymphocytes # (Manual) Monocytes # (Manual) APTT Heparin Anti-Xa Level POC ABG pH POC ABG pCO2 POC ABG pO2 Sodium Potassium Chloride Carbon Dioxide BUN Creatinine Glucose POC Glucose 155 H Lactic Acid Calcium Phosphorus Total Bilirubin AST ALT Total Creatine Kinase CK-MB (CK-2) Troponin T Total Protein Albumin HDL Cholesterol Salicylates Acetaminophen Crossmatch See Detail Allied health notes reviewed: nursing
--- NOTE | 2018-10-31 12:59 | Progress Note ---
Assessment and Plan Assessment and plan: Patient is a 58 yo man with a history of COPD, DM, hypertension, asthma, peripheral neuropathy, chronic hepatitis C virus, panic attack. anxiety disorder, polysubstance abuse including alcohol, cocaine and heroin who presented to [facility] on 10/11/18 with AMS. He was diagnosis with septic shock due to pneumonia, placed on abx and vasopressors. He was also diagnosis with DKA/respiratory failure/Status epilepticus/ARF. 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: Going for another Vascular procedure on the right, on IV heparin drip -Acute/subacute right FT CVA, Initial CT head, no acute finding, 10/13/18 found to have left-sided weakness, MRI brain showed numerous acute/subacute multilobar infarcts involving the cerebrum and cerebellum including Hemorrhagic transformation of the right frontal and biparietal lobes, was Not a candidate for tPA, monitor off aspirin per teleneurology, QUIQUE ; no thrombus or shunt, Speech recommended pureed diet -Severe sepsis with shock; present on admission Probably due to LLL aspiration pneumonia, completed total 7 days of antibiotics, off pressors -Paroxysmal atrial fibrillation. Currently on heparin drip, Cardiology is following -LLL pneumonia: completed treatment -Acute respiratory failure with hypoxia and hypercapnia: Requiring intubation, extubated, nebs , supplemental O2 as needed -DKA, resolved:cont SSI for now, diabetic diet -Acute toxic/metabolic encephalopathy, improved -Seizure disorder; seizure precautions, no new episodes of seizure, Ativan when necessary, neurology did not recommend antiepileptic medications -Elevated troponin/NSTEMI type 2, Echocardiogram for further evaluation - Ef 25- 30%, Cardiology consulted, medical Mx for now, -Acute systolic CHF, Ef 25-30%, anti-failure medications, Cardiology is following -ARF, due to ATN and vasomotor nephropathy, poa, resolved -Hyperkalemia, resolved -Abnormal LFT, Probably due to sepsis and chronic hepatitis C virus infection, Abdominal US showed no sign of cirrhosis: monitor cmp -Anemia, appears acute on chronic AOCD: monitor closely on iv heparin drip -Severe protein calorie malnutrition; nutrition supplements, Dietitian consulted -DVT prophylaxis with heparin and GI prophylaxis with famotidine -Tobacco abuse. Patient with a long smoking history of one pack per day or more since age 9. Patient was counseled on smoking cessation. Disposition: continue inpatient care. Vascular procedure right leg today. History Interval history: Patient was seen and examined. Follow-up on current diagnosis of PVD. No overnight events reported to me. Patient denies any chest pain, shortness br eath, nausea/vomiting or severe headaches. Imaging, nursing note, chart, labs and old chart reviewed. Discussed with patient. at bedside Hospitalist Physical - Physical exam Narrative exam: Gen: severely cachectic, disable, NAD, Awake, Alert, Orientated x 2 HEENT: NCAT, EOMI, PERRL, OP Clear Neck: supple, no adenopathy, no thyromegaly, no JVD CVS/Heart: RRR, normal S1S2, pulses present weak, right foot cool to touch (Dr. Murray at bedside with me also) Chest/Lungs: diminished bs bilateral, Symmetrical chest expansion, good air entry bilaterally GI/Abdomen: soft, NTND, good bowel sounds, no guarding or rebound /Bladder: no suprapubic tenderness, no CVA or paraspinal tenderness Extermity/Skin: left bka, right toes and foot dry gangrene MSK: FROM x 4 Neuro: CN 2-12 grossly intact, no new focal deficits Psych: calm - Constitutional Vitals: Temp Pulse Resp BP Pulse Ox 98.2 F 86 17 118/74 100 10/31/18 12:00 10/31/18 11:30 10/31/18 11:30 10/31/18 11:30 10/31/18 11:30 General appearance: Present: no acute distress Results - Labs CBC & Chem 7: 10/31/18 05:21 10/30/18 04:22 Labs: Laboratory Last Values WBC 27.0 K/mm3 (4.5-11.0) H 10/30/18 04:22 RBC 3.16 M/mm3 (3.65-5.03) L 10/30/18 04:22 Hgb 9.0 gm/dl (11.8-15.2) L 10/31/18 05:21 Hct 26.6 % (35.5-45.6) L 10/31/18 05:21 MCV 91 fl (84-94) 10/30/18 04:22 MCH 32 pg (28-32) 10/30/18 04:22 MCHC 35 % (32-34) H 10/30/18 04:22 RDW 14.8 % (13.2-15.2) 10/30/18 04:22 Plt Count 282 K/mm3 (140-440) 10/31/18 05:21 Lymph % (Auto) 11.3 % (13.4-35.0) L 10/24/18 05:56 [place] % (Auto) 7.1 % (0.0-7.3) 10/24/18 05:56 Eos % (Auto) 1.0 % (0.0-4.3) 10/24/18 05:56 Baso % (Auto) 0.4 % (0.0-1.8) 10/24/18 05:56 Lymph # 1.3 K/mm3 (1.2-5.4) 10/24/18 05:56 [place] # 0.8 K/mm3 (0.0-0.8) 10/24/18 05:56 Eos # 0.1 K/mm3 (0.0-0.4) 10/24/18 05:56 Baso # 0.0 K/mm3 (0.0-0.1) 10/24/18 05:56 Add Manual Diff Complete 10/30/18 04:22 Total Counted 200 10/30/18 04:22 Seg Neutrophils % Cdl Instructor 10/30/18 04:22 Seg Neuts % (Manual) 69.0 % (40.0-70.0) 10/30/18 04:22 26.0 % 10/30/18 04:22 1.5 % (13.4-35.0) L 10/30/18 04:22 Reactive Lymphs % (Man) 0 % 10/30/18 04:22 2.0 % (0.0-7.3) 10/30/18 04:22 0 % (0.0-4.3) 10/30/18 04:22 0 % (0.0-1.8) 10/30/18 04:22 1.0 % 10/30/18 04:22 0.5 % 10/30/18 04:22 0 % 10/30/18 04:22 0 % 10/30/18 04:22 Nucleated RBC % Not Reportable 10/30/18 04:22 Seg Neutrophils # 9.4 K/mm3 (1.8-7.7) H 10/24/18 05:56 Seg Neutrophils # Man 18.6 K/mm3 (1.8-7.7) H 10/30/18 04:22 Band Neutrophils # 7.0 K/mm3 10/30/18 04:22 0.4 K/mm3 (1.2-5.4) L 10/30/18 04:22 Abs React Lymphs (Man) 0.0 K/mm3 10/30/18 04:22 0.5 K/mm3 (0.0-0.8) 10/30/18 04:22 0.0 K/mm3 (0.0-0.4) 10/30/18 04:22 0.0 K/mm3 (0.0-0.1) 10/30/18 04:22 0.3 K/mm3 10/30/18 04:22 0.1 K/mm3 10/30/18 04:22 0.0 K/mm3 10/30/18 04:22 Blast Cells # 0.0 K/mm3 10/30/18 04:22 Pathologist Review 10/11/18 00:16 WBC Morphology Not Reportable 10/30/18 04:22 WBC Morphology TNR 10/30/18 04:22 Hypersegmented Neuts Not Reportable 10/30/18 04:22 Hyposegmented Neuts Not Reportable 10/30/18 04:22 Hypogranular Neuts Not Reportable 10/30/18 04:22 Not Reportable 10/30/18 04:22 Not Reportable 10/30/18 04:22 Not Reportable 10/30/18 04:22 Not Reportable 10/30/18 04:22 Not Reportable 10/30/18 04:22 Not Reportable 10/30/18 04:22 Consistent w auto 10/30/18 04:22 Not Reportable 10/30/18 04:22 Plt Clumps, EDTA Not Reportable 10/30/18 04:22 Not Reportable 10/30/18 04:22 Not Reportable 10/30/18 04:22 Not Reportable 10/30/18 04:22 Plt Morphology Comment Not Reportable 10/30/18 04:22 RBC Morphology Not Reportable 10/30/18 04:22 Dimorphic RBCs Not Reportable 10/30/18 04:22 Not Reportable 10/30/18 04:22 Not Reportable 10/30/18 04:22 Not Reportable 10/30/18 04:22 Not Reportable 10/30/18 04:22 Not Reportable 10/30/18 04:22 Not Reportable 10/30/18 04:22 Not Reportable 10/30/18 04:22 Not Reportable 10/30/18 04:22 Not Reportable 10/30/18 04:22 Not Reportable 10/30/18 04:22 Not Reportable 10/30/18 04:22 Not Reportable 10/30/18 04:22 Not Reportable 10/30/18 04:22 Not Reportable 10/30/18 04:22 Not Reportable 10/30/18 04:22 Not Reportable 10/30/18 04:22 Not Reportable 10/30/18 04:22 Not Reportable 10/30/18 04:22 Not Reportable 10/30/18 04:22 Acanthocytes (Spur) Not Reportable 10/30/18 04:22 Rouleaux Not Reportable 10/30/18 04:22 Not Reportable 10/30/18 04:22 Not Reportable 10/30/18 04:22 Not Reportable 10/30/18 04:22 Not Reportable 10/30/18 04:22 Hem Pathologist Commnt No 10/30/18 04:22 PT 13.9 Sec. (12.2-14.9) 10/29/18 07:11 INR 1.01 (0.87-1.13) 10/29/18 07:11 APTT 30.3 Sec. (24.2-36.6) 10/27/18 13:33 Heparin Anti-Xa Level < 0.10 U.I./ml (0.3-0.7) L 10/30/18 20:51 Heparin Anti-Xa, Unfract Negative (Negative) 10/15/18 12:00 POC ABG pH 7.393 (7.35-7.45) 10/16/18 12:51 POC ABG pCO2 48.9 (35-45) H 10/16/18 12:51 POC ABG pO2 92 (80-105) 10/16/18 12:51 POC ABG HCO3 29.8 (22-26 mml/L) 10/16/18 12:51 POC ABG Total CO2 31 (23-27mmol/L) 10/16/18 12:51 POC ABG O2 Sat 97 10/16/18 12:51 POC ABG Base Excess 5 ((-2) - (+3)mmol/L) 10/16/18 12:51 35 % 10/16/18 12:51 Sodium 137 mmol/L (137-145) 10/30/18 04:22 Potassium 4.6 mmol/L (3.6-5.0) 10/30/18 04:22 Chloride 102.6 mmol/L (98-107) 10/30/18 04:22 Carbon Dioxide 25 mmol/L (22-30) 10/30/18 04:22 14 mmol/L 10/30/18 04:22 BUN 14 mg/dL (9-20) 10/30/18 04:22 0.8 mg/dL (0.8-1.5) D 10/30/18 04:22 Estimated GFR > 60 ml/min 10/30/18 04:22 18 % 10/30/18 04:22 Glucose 224 mg/dL (75-100) H 10/30/18 04:22 POC Glucose 194 (70-105) H 10/31/18 12:12 Lactic Acid 2.70 mmol/L (0.7-2.0) H* 10/11/18 12:30 Calcium 7.5 mg/dL (8.4-10.2) L 10/30/18 04:22 Phosphorus 2.80 mg/dL (2.5-4.5) 10/21/18 04:59 Magnesium 1.90 mg/dL (1.7-2.3) 10/21/18 04:59 0.30 mg/dL (0.1-1.2) 10/24/18 05:56 AST 44 units/L (5-40) H 10/24/18 05:56 ALT 40 units/L (7-56) 10/24/18 05:56 57 units/L (35-129) 10/24/18 05:56 3647 units/L (55-170) H 10/12/18 04:04 CK-MB (CK-2) 48.3 ng/mL (0.0-4.0) H 10/12/18 04:04 CK-MB (CK-2) Rel Index 1.3 (0-4) 10/12/18 04:04 0.816 ng/mL (0.00-0.029) H* 10/13/18 16:15 6.2 g/dL (6.3-8.2) L 10/24/18 05:56 2.4 g/dL (3.9-5) L 10/24/18 05:56 0.6 % 10/24/18 05:56 Triglycerides 87 mg/dL (2-149) 10/11/18 00:16 Cholesterol 73 mg/dL (50-199) 10/11/18 00:16 51 mg/dL (50-130) 10/11/18 00:16 19 mg/dL (40-59) L 10/11/18 00:16 3.84 % 10/11/18 00:16 See scanned report 10/15/18 12:00 Yellow (Yellow) 10/11/18 01:42 Cloudy (Clear) 10/11/18 01:42 6.0 (5.0-7.0) 10/11/18 01:42 Ur Specific [place] 1.011 (1.003-1.030) 10/11/18 01:42 100 mg/dl mg/dL (Negative) 10/11/18 01:42 >=500 mg/dL (Negative) 10/11/18 01:42 Neg mg/dL (Negative) 10/11/18 01:42 Mod (Negative) 10/11/18 01:42 Neg (Negative) 10/11/18 01:42 Neg (Negative) 10/11/18 01:42 4.0 mg/dL (<2.0) 10/11/18 01:42 Ur Leukocyte Esterase Neg (Negative) 10/11/18 01:42 5.0 /HPF (0.0-6.0) 10/11/18 01:42 2.0 /HPF (0.0-6.0) 10/11/18 01:42 U Epithel Cells (Auto) < 1.0 /HPF (0-13.0) 10/11/18 01:42 Amorphous Crystals 1+ 10/11/18 01:42 Few /HPF 10/11/18 01:42 2+ /HPF (HAT STOCK LAMINATING MACHINE OPERATOR) 10/11/18 01:42 Vancomycin Trough 8.3 ug/mL (5.0-20.0) 10/13/18 05:40 Salicylates < 0.3 mg/dL (2.8-20.0) L 10/11/18 00:16 Presumptive positive 10/11/18 01:42 Presumptive negative 10/11/18 01:42 Acetaminophen < 5.0 ug/mL (10.0-30.0) L 10/11/18 00:16 Ur Barbiturates Screen Presumptive negative 10/11/18 01:42 Ur Phencyclidine Scrn Presumptive negative 10/11/18 01:42 Ur Amphetamines Screen Presumptive positive 10/11/18 01:42 U Benzodiazepines Scrn Presumptive positive 10/11/18 01:42 Presumptive negative 10/11/18 01:42 U Marijuana (THC) Screen Presumptive negative 10/11/18 01:42 Disclamer 10/11/18 01:42 Plasma/Serum Alcohol < 0.01 % (0-0.07) 10/11/18 00:16 Heparin-induced Plt Ab Negative (Negative) 10/15/18 12:00 UF Heparin High Dose 0 % Release 10/15/18 12:00 AURELIO UFH Low Dose 0.1 0 % Release 10/15/18 12:00 AURELIO UFH Low Dose 0.5 0 % Release 10/15/18 12:00 Blood Type O POSITIVE 10/31/18 08:07 Antibody Screen Positive 10/31/18 08:07 Antibody Identification Negative 10/31/18 08:07 Direct Antiglob Test Negative 10/31/18 08:07 SHASHANK, Poly Interpret Negative 10/31/18 08:07 Crossmatch See Detail 10/31/18 08:07 Active Medications - Current Medications Current Medications: Generic Name Dose Route Start Last Admin Trade Name Freq PRN Reason Stop Dose Admin Acetaminophen 650 mg 10/11/18 04:04 10/21/18 22:21 Tylenol PO 650 mg Q4H PRN Administration Pain MILD(1-3)/Fever >100.5/HOLLINS Albuterol 2.5 mg 10/19/18 00:54 Proventil IH Q4HRT PRN Shortness Of Breath Albuterol/Ipratropium 1 ampul 10/19/18 08:00 05/22/19 09:31 Duoneb *Not For Prn Use* IH Not Given TIDRT ISAAC Alprazolam 1 mg 10/20/18 13:06 10/31/18 04:34 Xanax PO 1 mg TID PRN Administration Anxiety Citalopram Hydrobromide 10 mg 10/21/18 10:00 10/30/18 16:44 Celexa PO 10 mg QDAY ISAAC Administration Dextrose 0 ml 10/11/18 03:57 10/11/18 10:18 D50w (25gm) Syringe IV 10 ml PRN PRN Administration Hypoglycemia Famotidine 20 mg 10/15/18 10:00 10/30/18 21:19 Pepcid PO 20 mg BID ISAAC Administration Fentanyl 50 mcg 10/31/18 08:00 Sublimaze IV 10/31/18 18:00 Q5MIN PRN Pain , Severe (7-10) Hydromorphone HCl 1 mg 10/28/18 09:07 10/31/18 02:12 Dilaudid IV 1 mg Q4H PRN Administration Pain , Severe (7-10) Heparin Sodium/Sodium Chloride 25,000 unit in 500 mls @ 18 mls/hr 10/27/18 14:00 10/31/18 10:10 Heparin/ 0.45% Nacl-25,000 Unit/500 Ml IV 1,300 units/hr TITR ISAAC 26 mls/hr Administration Protocol 900 UNITS/HR Lactated Ringer's 1,000 mls @ 75 mls/hr 10/31/18 06:00 10/31/18 07:42 Lactated Ringers IV 75 mls/hr DIRECT ISAAC Administration Cefazolin Sodium 1 gm in 50 mls @ 100 mls/hr 10/31/18 14:00 Ancef/Ns 1 Gm/50 Ml IV 11/01/18 06:29 Q8HR ON LICENSE OF [facility] Protocol Insulin Human Regular 0 units 10/17/18 11:30 10/30/18 22:00 Humulin R SUB-Q Not Given ACHS ON LICENSE OF [facility] Protocol Metoprolol Tartrate 25 mg 10/18/18 22:00 10/30/18 21:19 Lopressor PO Not Given BID ISAAC Metoprolol Tartrate 2.5 mg 10/18/18 18:51 10/18/18 22:19 Lopressor IV 2.5 mg Q6H PRN Administration Tachyarrhythmias Naloxone HCl 0.1 mg 10/29/18 16:03 Narcan 0.4 Mg/1 Ml IV Q2MIN PRN Res Rate </= 8 or 02 SAT < 92% Ondansetron HCl 4 mg 10/11/18 04:04 Zofran IV Q8H PRN Nausea And Vomiting Oxycodone/Acetaminophen 1 tab 10/18/18 13:45 10/31/18 03:05 Percocet 5/325 PO 1 tab Q6H PRN Administration Pain, Moderate (4-6) Quetiapine Fumarate 200 mg 10/14/18 22:00 10/30/18 21:19 Seroquel PO 200 mg QHS ISAAC Administration Rivaroxaban 10 mg 10/31/18 14:00 Xarelto PO QDAY ON LICENSE OF [facility] Protocol Nutrition/Malnutrition Assess - Dietary Evaluation Nutrition/Malnutrition Findings: Nutrition Notes Start: 10/11/18 12:39 Freq: Status: Active Protocol: Document 10/28/18 13:44 RM (Rec: 10/28/18 13:53 RM [id number]) Nutrition Notes Initial or Follow up Reassessment Current Diagnosis Acute Kidney Injury,COPD, Diabetes,Sepsis,Hypertension, Stroke Other Pertinent Diagnosis Sacral PU, R & L leg skin tear , Hep C, cellulitis, Opiate overdose, AMS Current Diet [facility] soft w/chopped meats Labs/Tests No recent labs Pertinent Medications Reviewed Height 6 ft 3 in Weight 64.5 kg [place] Body Weight (kg) 89.09 BMI 17.7 Subjective/Other Information [facility] soft w/chopped meats recommended per bedside dysphagia evaluation 10/27/18. Pt asleep at time of visit. Per nurse pt eats 50% of his meals. Percent of energy/protein needs met: 46%/63% Burn Absent Trauma Absent #2 Nutrition Diagnosis Inadequate oral intake Diagnosis Progress(for reassessment Continues documentation) #1 Nutrition Diagnosis Malnutrition Diagnosis Progress(for reassessment Continues documentation) Is patient on ventilator? No Is Patient Ambulatory and/or Out of Bed No REE-([facility]-confined to bed) 0037.352 Kcal/Kg value to use for calculation 36 Approximate Energy Requirements Using 2322 kcal/Kg Calculation Used for Recommendations Kcal/kg Additional Notes Protein Needs: 79-99g (1.2-1. 5g/kg) Fluid Needs: 1 ml/kcal Nutrition Intervention Change Diet Order: Continue current Add Supplement/Snack (indicate name/kcal Glucerna BID /protein ) Provides kCal: 440 Provides Protein (gm) 20 Goal #1 Meet at least 75% of calorie and protein needs via PO and ONS intakes Goal #2 Wt gain/maintenance Anticipated [facility]charge [facility] w/chopped meat diet Follow-Up By: 10/31/18 Additional Comments Follow for PO and ONS intakes
--- NOTE | 2018-10-31 14:35 | Post Anesthesia Evaluation ---
- Post Anesthesia Evaluation Patient Participated: Yes Airway Patent: Yes Stable Respiratory Function: Yes Nausea/Vomiting: No Temp > 96.8F: Yes Pain Manageable: Yes Adequeate Hydration: Yes Anesthesia Complications: No
[2018-10-31] MEDS: ANCEF/NS 1 GM/50 ML 1 GM/50 ML BAG IV SCH ×2 (15:30→23:01)
[2018-10-31] MEDS: XARELTO PO SCH (15:31)
[2018-10-31] MEDS: HumuLIN R SUB-Q SCH ×4 (17:02→21:28)
--- NOTE | 2018-10-31 18:26 | Event Note ---
Date: 10/31/18 Patient with palpable right PT pulse after today's operation. Changed left BKA stump dressing. Distal stump slightly cooler than the thigh however the stump was pink and viable without signs of ischemia.
[2018-10-31] MEDS: PEPCID PO SCH (21:29)
[2018-10-31] MEDS: LOPRESSOR PO SCH (22:48)
[2018-11-01] MEDS: XANAX PO PRN ×3 (02:16→20:48)
[2018-11-01] MEDS: ANCEF/NS 1 GM/50 ML 1 GM/50 ML BAG IV SCH (05:30)
[2018-11-01 06:12] LABS: Hematocrit 27.4 % (35.5-45.6); Hemoglobin 9.1 gm/dl (11.8-15.2); Mean Corpuscular HGB Conc 33 % (32-34); Mean Corpuscular Volume 93 fl (84-94); Platelet Count 282 K/mm3 (140-440); Red Blood Count 2.95 M/mm3 (3.65-5.03); Red Cell Distribution Width 15.3 % (13.2-15.2)
[2018-11-01 06:27] LABS: Alanine Aminotransferase 19 units/L (7-56); Albumin 2.3 g/dL (3.9-5); BUN/Creatinine Ratio 22; Blood Urea Nitrogen 11 mg/dL (9-20); Calcium 8.3 mg/dL (8.4-10.2); Hemolysis Index 9
[2018-11-01] MEDS: celeXA PO SCH ×2 (07:13→09:08)
[2018-11-01] MEDS: PEPCID PO SCH ×3 (07:13→21:54)
[2018-11-01] MEDS: LOPRESSOR PO SCH ×3 (07:13→21:54)
--- NOTE | 2018-11-01 07:17 | Progress Note ---
Assessment and Plan Assessment and plan: Patient is a 58 yo man with a history of COPD, DM, hypertension, asthma, peripheral neuropathy, chronic hepatitis C virus, panic attack. anxiety disorder, polysubstance abuse including alcohol, cocaine and heroin who presented to [facility] ED on 10/11/18 with AMS. He was diagnosis with septic shock due to pneumonia, placed on abx and vasopressors. He was also diagnosis with DKA/respiratory failure/Status epilepticus/ARF. 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 followed by revascularization right leg on 10/31/18: Vascular following, input noted, started Xarelto -Acute/subacute right CVA, Initial CT head, no acute finding, 10/13/18 found to have left-sided weakness, MRI brain showed numerous acute/subacute multilobar infarcts involving the cerebrum and cerebellum including Hemorrhagic transformation of the right frontal and biparietal lobes, was Not a candidate for tPA, monitor off aspirin per teleneurology, QUIQUE ; no thrombus or shunt, Speech recommended pureed diet -Severe sepsis with shock; present on admission Probably due to LLL aspiration pneumonia, completed total 7 days of antibiotics, off vasopressors -Paroxysmal atrial fibrillation. on Xarelto, Cardiology is following -LLL pneumonia: completed treatment -Acute respiratory failure with hypoxia and hypercapnia: Requiring intubation, extubated, nebs , supplemental O2 as needed -DKA, resolved: cont SSI for now, diabetic diet -Acute toxic/metabolic encephalopathy, improved -Seizure disorder; seizure precautions, no new episodes of seizure, Ativan when necessary, neurology did not recommend antiepileptic medications -Elevated troponin/NSTEMI type 2, Echocardiogram for further evaluation - Ef 25- 30%, Cardiology consulted, medical Mx for now, -Acute systolic CHF, Ef 25-30%, anti-failure medications, Cardiology is following -ARF, due to ATN and vasomotor nephropathy, poa, resolved -Hyperkalemia, resolved -Abnormal LFT, Probably due to sepsis and chronic hepatitis C virus infection, Abdominal US showed no sign of cirrhosis: monitor cmp -Anemia, appears acute on chronic AOCD: monitor closely on iv heparin drip -Severe protein calorie malnutrition; nutrition supplements, Dietitian consulted -DVT prophylaxis with heparin and GI prophylaxis with famotidine -Tobacco abuse. Patient with a long smoking history of one pack per day or more since age 9. Patient was counseled on smoking cessation. Disposition: continue inpatient care. Vascular procedure on right leg 10/31/18 and now the right foot is warm. transfer out of ICU soon. restraints renewed History Interval history: Patient was seen and examined. Follow-up on current diagnosis of PVD. No overnight events reported to me. Patient denies any chest pain, shortness marialuisa ath, nausea/vomiting or severe headaches. Imaging, nursing note, chart, labs and old chart reviewed. Discussed with patient. Hospitalist Physical - Physical exam Narrative exam: Gen: severely cachectic, disable, NAD, Awake, Alert, Orientated x 2 HEENT: NCAT, EOMI, PERRL, OP Clear Neck: supple, no adenopathy, no thyromegaly, no JVD CVS/Heart: RRR, normal S1S2, pulses present weak, right foot cool to touch (Dr. Murray at bedside with me also) Chest/Lungs: diminished bs bilateral, Symmetrical chest expansion, good air entry bilaterally GI/Abdomen: soft, NTND, good bowel sounds, no guarding or rebound /Bladder: no suprapubic tenderness, no CVA or paraspinal tenderness Extermity/Skin: left bka, right toes and foot dry gangrene MSK: FROM x 4 Neuro: CN 2-12 grossly intact, no new focal deficits Psych: calm - Constitutional Vitals: Temp Pulse Resp BP Pulse Ox 98.0 F 104 H 17 126/73 96 11/01/18 04:00 11/01/18 06:30 11/01/18 06:30 11/01/18 06:30 11/01/18 00:00 General appearance: Present: no acute distress Results - Labs CBC & Chem 7: 11/01/18 05:52 11/01/18 05:52 Labs: Laboratory Last Values WBC 12.5 K/mm3 (4.5-11.0) H 11/01/18 05:52 RBC 2.95 M/mm3 (3.65-5.03) L 11/01/18 05:52 Hgb 9.1 gm/dl (11.8-15.2) L 11/01/18 05:52 Hct 27.4 % (35.5-45.6) L 11/01/18 05:52 MCV 93 fl (84-94) 11/01/18 05:52 MCH 31 pg (28-32) 11/01/18 05:52 MCHC 33 % (32-34) 11/01/18 05:52 RDW 15.3 % (13.2-15.2) H 11/01/18 05:52 Plt Count 282 K/mm3 (140-440) 11/01/18 05:52 Lymph % (Auto) 11.3 % (13.4-35.0) L 10/24/18 05:56 [place] % (Auto) 7.1 % (0.0-7.3) 10/24/18 05:56 Eos % (Auto) 1.0 % (0.0-4.3) 10/24/18 05:56 Baso % (Auto) 0.4 % (0.0-1.8) 10/24/18 05:56 Lymph # 1.3 K/mm3 (1.2-5.4) 10/24/18 05:56 [place] # 0.8 K/mm3 (0.0-0.8) 10/24/18 05:56 Eos # 0.1 K/mm3 (0.0-0.4) 10/24/18 05:56 Baso # 0.0 K/mm3 (0.0-0.1) 10/24/18 05:56 Add Manual Diff Complete 10/30/18 04:22 Total Counted 200 10/30/18 04:22 Seg Neutrophils % Sueding Machine Operator 10/30/18 04:22 Seg Neuts % (Manual) 69.0 % (40.0-70.0) 10/30/18 04:22 26.0 % 10/30/18 04:22 1.5 % (13.4-35.0) L 10/30/18 04:22 Reactive Lymphs % (Man) 0 % 10/30/18 04:22 2.0 % (0.0-7.3) 10/30/18 04:22 0 % (0.0-4.3) 10/30/18 04:22 0 % (0.0-1.8) 10/30/18 04:22 1.0 % 10/30/18 04:22 0.5 % 10/30/18 04:22 0 % 10/30/18 04:22 0 % 10/30/18 04:22 Nucleated RBC % Not Reportable 10/30/18 04:22 Seg Neutrophils # 9.4 K/mm3 (1.8-7.7) H 10/24/18 05:56 Seg Neutrophils # Man 18.6 K/mm3 (1.8-7.7) H 10/30/18 04:22 Band Neutrophils # 7.0 K/mm3 10/30/18 04:22 0.4 K/mm3 (1.2-5.4) L 10/30/18 04:22 Abs React Lymphs (Man) 0.0 K/mm3 10/30/18 04:22 0.5 K/mm3 (0.0-0.8) 10/30/18 04:22 0.0 K/mm3 (0.0-0.4) 10/30/18 04:22 0.0 K/mm3 (0.0-0.1) 10/30/18 04:22 0.3 K/mm3 10/30/18 04:22 0.1 K/mm3 10/30/18 04:22 0.0 K/mm3 10/30/18 04:22 Blast Cells # 0.0 K/mm3 10/30/18 04:22 Pathologist Review 10/11/18 00:16 WBC Morphology Not Reportable 10/30/18 04:22 WBC Morphology TNR 10/30/18 04:22 Hypersegmented Neuts Not Reportable 10/30/18 04:22 Hyposegmented Neuts Not Reportable 10/30/18 04:22 Hypogranular Neuts Not Reportable 10/30/18 04:22 Not Reportable 10/30/18 04:22 Not Reportable 10/30/18 04:22 Not Reportable 10/30/18 04:22 Not Reportable 10/30/18 04:22 Not Reportable 10/30/18 04:22 Not Reportable 10/30/18 04:22 Consistent w auto 10/30/18 04:22 Not Reportable 10/30/18 04:22 Plt Clumps, EDTA Not Reportable 10/30/18 04:22 Not Reportable 10/30/18 04:22 Not Reportable 10/30/18 04:22 Not Reportable 10/30/18 04:22 Plt Morphology Comment Not Reportable 10/30/18 04:22 RBC Morphology Not Reportable 10/30/18 04:22 Dimorphic RBCs Not Reportable 10/30/18 04:22 Not Reportable 10/30/18 04:22 Not Reportable 10/30/18 04:22 Not Reportable 10/30/18 04:22 Not Reportable 10/30/18 04:22 Not Reportable 10/30/18 04:22 Not Reportable 10/30/18 04:22 Not Reportable 10/30/18 04:22 Not Reportable 10/30/18 04:22 Not Reportable 10/30/18 04:22 Not Reportable 10/30/18 04:22 Not Reportable 10/30/18 04:22 Not Reportable 10/30/18 04:22 Not Reportable 10/30/18 04:22 Not Reportable 10/30/18 04:22 Not Reportable 10/30/18 04:22 Not Reportable 10/30/18 04:22 Not Reportable 10/30/18 04:22 Not Reportable 10/30/18 04:22 Not Reportable 10/30/18 04:22 Acanthocytes (Spur) Not Reportable 10/30/18 04:22 Rouleaux Not Reportable 10/30/18 04:22 Not Reportable 10/30/18 04:22 Not Reportable 10/30/18 04:22 Not Reportable 10/30/18 04:22 Not Reportable 10/30/18 04:22 Hem Pathologist Commnt No 10/30/18 04:22 PT 13.9 Sec. (12.2-14.9) 10/29/18 07:11 INR 1.01 (0.87-1.13) 10/29/18 07:11 APTT 30.3 Sec. (24.2-36.6) 10/27/18 13:33 Heparin Anti-Xa Level 1.53 U.I./ml (0.3-0.7) H 11/01/18 00:52 Heparin Anti-Xa, Unfract Negative (Negative) 10/15/18 12:00 POC ABG pH 7.393 (7.35-7.45) 10/16/18 12:51 POC ABG pCO2 48.9 (35-45) H 10/16/18 12:51 POC ABG pO2 92 (80-105) 10/16/18 12:51 POC ABG HCO3 29.8 (22-26 mml/L) 10/16/18 12:51 POC ABG Total CO2 31 (23-27mmol/L) 10/16/18 12:51 POC ABG O2 Sat 97 10/16/18 12:51 POC ABG Base Excess 5 ((-2) - (+3)mmol/L) 10/16/18 12:51 35 % 10/16/18 12:51 Sodium 140 mmol/L (137-145) 11/01/18 05:52 Potassium 3.8 mmol/L (3.6-5.0) 11/01/18 05:52 Chloride 105.0 mmol/L (98-107) 11/01/18 05:52 Carbon Dioxide 27 mmol/L (22-30) 11/01/18 05:52 12 mmol/L 11/01/18 05:52 BUN 11 mg/dL (9-20) 11/01/18 05:52 0.5 mg/dL (0.8-1.5) L 11/01/18 05:52 Estimated GFR > 60 ml/min 11/01/18 05:52 22 % 11/01/18 05:52 Glucose 169 mg/dL (75-100) H 11/01/18 05:52 POC Glucose 234 (70-105) H 10/31/18 21:14 Lactic Acid 2.70 mmol/L (0.7-2.0) H* 10/11/18 12:30 Calcium 8.3 mg/dL (8.4-10.2) L 11/01/18 05:52 Phosphorus 2.80 mg/dL (2.5-4.5) 10/21/18 04:59 Magnesium 1.70 mg/dL (1.7-2.3) 11/01/18 05:52 0.30 mg/dL (0.1-1.2) 11/01/18 05:52 AST 39 units/L (5-40) 11/01/18 05:52 ALT 19 units/L (7-56) 11/01/18 05:52 49 units/L (35-129) 11/01/18 05:52 3647 units/L (55-170) H 10/12/18 04:04 CK-MB (CK-2) 48.3 ng/mL (0.0-4.0) H 10/12/18 04:04 CK-MB (CK-2) Rel Index 1.3 (0-4) 10/12/18 04:04 0.816 ng/mL (0.00-0.029) H* 10/13/18 16:15 6.2 g/dL (6.3-8.2) L 11/01/18 05:52 2.3 g/dL (3.9-5) L 11/01/18 05:52 0.6 % 11/01/18 05:52 Triglycerides 87 mg/dL (2-149) 10/11/18 00:16 Cholesterol 73 mg/dL (50-199) 10/11/18 00:16 51 mg/dL (50-130) 10/11/18 00:16 19 mg/dL (40-59) L 10/11/18 00:16 3.84 % 10/11/18 00:16 See scanned report 10/15/18 12:00 Yellow (Yellow) 10/11/18 01:42 Cloudy (Clear) 10/11/18 01:42 6.0 (5.0-7.0) 10/11/18 01:42 Ur Specific [place] 1.011 (1.003-1.030) 10/11/18 01:42 100 mg/dl mg/dL (Negative) 10/11/18 01:42 >=500 mg/dL (Negative) 10/11/18 01:42 Neg mg/dL (Negative) 10/11/18 01:42 Mod (Negative) 10/11/18 01:42 Neg (Negative) 10/11/18 01:42 Neg (Negative) 10/11/18 01:42 4.0 mg/dL (<2.0) 10/11/18 01:42 Ur Leukocyte Esterase Neg (Negative) 10/11/18 01:42 5.0 /HPF (0.0-6.0) 10/11/18 01:42 2.0 /HPF (0.0-6.0) 10/11/18 01:42 U Epithel Cells (Auto) < 1.0 /HPF (0-13.0) 10/11/18 01:42 Amorphous Crystals 1+ 10/11/18 01:42 Few /HPF 10/11/18 01:42 2+ /HPF (FOLDING MACHINE SETTER) 10/11/18 01:42 Vancomycin Trough 8.3 ug/mL (5.0-20.0) 10/13/18 05:40 Salicylates < 0.3 mg/dL (2.8-20.0) L 10/11/18 00:16 Presumptive positive 10/11/18 01:42 Presumptive negative 10/11/18 01:42 Acetaminophen < 5.0 ug/mL (10.0-30.0) L 10/11/18 00:16 Ur Barbiturates Screen Presumptive negative 10/11/18 01:42 Ur Phencyclidine Scrn Presumptive negative 10/11/18 01:42 Ur Amphetamines Screen Presumptive positive 10/11/18 01:42 U Benzodiazepines Scrn Presumptive positive 10/11/18 01:42 Presumptive negative 10/11/18 01:42 U Marijuana (THC) Screen Presumptive negative 10/11/18 01:42 Disclamer 10/11/18 01:42 Plasma/Serum Alcohol < 0.01 % (0-0.07) 10/11/18 00:16 Heparin-induced Plt Ab Negative (Negative) 10/15/18 12:00 UF Heparin High Dose 0 % Release 10/15/18 12:00 AURELIO UFH Low Dose 0.1 0 % Release 10/15/18 12:00 AURELIO UFH Low Dose 0.5 0 % Release 10/15/18 12:00 Blood Type O POSITIVE 10/31/18 08:07 Antibody Screen Positive 10/31/18 08:07 Antibody Identification Negative 10/31/18 08:07 Direct Antiglob Test Negative 10/31/18 08:07 SHASHANK, Poly Interpret Negative 10/31/18 08:07 Crossmatch See Detail 10/31/18 08:07 Active Medications - Current Medications Current Medications: Generic Name Dose Route Start Last Admin Trade Name Freq PRN Reason Stop Dose Admin Acetaminophen 650 mg 10/11/18 04:04 10/21/18 22:21 Tylenol PO 650 mg Q4H PRN Administration Pain MILD(1-3)/Fever >100.5/HOLLINS Albuterol 2.5 mg 10/19/18 00:54 Proventil IH Q4HRT PRN Shortness Of Breath Albuterol/Ipratropium 1 ampul 10/19/18 08:00 10/31/18 20:13 Duoneb *Not For Prn Use* IH Not Given TIDRT ISAAC Alprazolam 1 mg 10/20/18 13:06 11/01/18 02:16 Xanax PO 1 mg TID PRN Administration Anxiety Citalopram Hydrobromide 10 mg 10/21/18 10:00 11/01/18 07:13 Celexa PO Not Given QDAY ISAAC Dextrose 0 ml 10/11/18 03:57 10/11/18 10:18 D50w (25gm) Syringe IV 10 ml PRN PRN Administration Hypoglycemia Famotidine 20 mg 10/15/18 10:00 11/01/18 07:13 Pepcid PO Not Given BID [facility] Hydromorphone HCl 1 mg 10/28/18 09:07 10/31/18 21:30 Dilaudid IV 1 mg Q4H PRN Administration Pain , Severe (7-10) Heparin Sodium/Sodium Chloride 25,000 unit in 500 mls @ 18 mls/hr 10/27/18 14:00 11/01/18 04:05 Heparin/ 0.45% Nacl-25,000 Unit/500 Ml IV 1,000 units/hr TITR ISAAC 20 mls/hr Titration Protocol 900 UNITS/HR Lactated Ringer's 1,000 mls @ 75 mls/hr 10/31/18 06:00 10/31/18 15:29 Lactated Ringers IV 75 mls/hr DIRECT ISAAC Administration Insulin Human Regular 0 units 10/17/18 11:30 10/31/18 21:28 Humulin R SUB-Q 4 units ACHS ISAAC Administration Protocol Metoprolol Tartrate 25 mg 10/18/18 22:00 11/01/18 07:13 Lopressor PO Not Given BID ISAAC Metoprolol Tartrate 2.5 mg 10/18/18 18:51 10/18/18 22:19 Lopressor IV 2.5 mg Q6H PRN Administration Tachyarrhythmias Naloxone HCl 0.1 mg 10/29/18 16:03 Narcan 0.4 Mg/1 Ml IV Q2MIN PRN Res Rate </= 8 or 02 SAT < 92% Ondansetron HCl 4 mg 10/11/18 04:04 Zofran IV Q8H PRN Nausea And Vomiting Oxycodone/Acetaminophen 1 tab 10/18/18 13:45 10/31/18 20:15 Percocet 5/325 PO 1 tab Q6H PRN Administration Pain, Moderate (4-6) Quetiapine Fumarate 200 mg 10/14/18 22:00 10/31/18 21:29 Seroquel PO 200 mg QHS ISAAC Administration Rivaroxaban 10 mg 10/31/18 14:00 10/31/18 15:31 Xarelto PO 10 mg QDAY ISAAC Administration Protocol Nutrition/Malnutrition Assess - Dietary Evaluation Nutrition/Malnutrition Findings: Nutrition Notes Start: 10/11/18 12:39 Freq: Status: Active Protocol: Document 10/31/18 16:05 RM (Rec: 10/31/18 16:12 RM [id number]) Nutrition Notes Initial or Follow up Reassessment Current Diagnosis Acute Kidney Injury,COPD, Diabetes,Sepsis,Hypertension, Stroke Other Pertinent Diagnosis Sacral PU, R & L leg skin tear , Hep C, cellulitis, Opiate overdose Current Diet Mech soft w/chopped meats Labs/Tests Reviewed Pertinent Medications Reviewed Height 6 ft 3 in Weight 64.5 kg [place] Body Weight (kg) 89.09 BMI 17.7 Subjective/Other Information Pt moved to critical care. Pt NPO for thrombectomy earlier today. [facility] soft diet ordered later today. Pt stated that prior to NPO status he was eat all of his meals and drinking his Glucerna. Percent of energy/protein needs met: 100%/100% Burn Absent Trauma Absent #2 Nutrition Diagnosis Inadequate oral intake As Evidenced by Signs and Symptoms pt meeting 100% of calorie and protein needs Diagnosis Progress(for reassessment Resolved documentation) #1 Nutrition Diagnosis Malnutrition Diagnosis Progress(for reassessment Continues documentation) Is patient on ventilator? No Is Patient Ambulatory and/or Out of Bed No REE-([facility]-confined to bed) [phone] Kcal/Kg value to use for calculation 36 Approximate Energy Requirements Using 2322 kcal/Kg Calculation Used for Recommendations Kcal/kg Additional Notes Protein Needs: 77-129g (1.2-2g /kg) Fluid Needs: 1 ml/kcal Nutrition Intervention Change Diet Order: Continue current Add Supplement/Snack (indicate name/kcal Glucerna BID + [place] BID /protein ) Provides kCal: 630 Provides Protein (gm) 25 Goal #1 Continue to meet at least 75% of calorie and protein needs via PO and ONS intakes Goal #2 Wt gain/maintenance Anticipated Discharge Needs: [facility] soft w/chopped meat diet Follow-Up By: 11/06/18 Additional Comments Follow for PO and ONS intakes
[2018-11-01] MEDS: DILAUDID IV PRN (08:29)
[2018-11-01] MEDS: DUONEB *Not for PRN Use IH SCH ×3 (09:04→20:49)
[2018-11-01] MEDS: XARELTO PO SCH (09:05)
--- NOTE | 2018-11-01 09:16 | Progress Note ---
Assessment and Plan s/p left BKA, right open thrombectomy and aortic stenting and bilateral common iliac artery stenting but right EIA occluded requiring another open thrombectomy and stenting of the right iliac system. 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 Witnessed seizure en route. Acute kidney injury. Leukocytosis. Hypercapnia. Hyperkalemia. Metabolic acidosis. Lactic acidosis. Non-ST elevation myocardial infarction. Elevated serum transaminases. Pain management Therapeutic anticoagulation OK to transfer [facility] for ongoing care PT/OT/Mobility Falls precautions Optimize nutrition All other care as documented below - continue bronchodilators with pulmonary hygiene per RT - continue to wean supplemental oxygen to keep O2 sats 88-90% - PRN ABGs/CXR - Continue cardioprotective measures -Continue with secondary stroke prophylaxis - Replete electrolytes as indicated - Follow cultures and adjust antibiotics for ID/CALEB (Deescalate as indicated) - Avoid nephrotoxic agents, adjust all medications for CrCL - Aspiration precautions - Accuchecks with glycemic control. Target glucose of 140-180 mg/dL - Influenza and pneumonia vaccination per protocol Subjective Date of service: 11/01/18 Principal diagnosis: Ac hypercapnic hypoxemic Resp failure; Drug OD; AE-COPD; NINOSKA; Seizures Interval history: Patient is seen today for: Acute hypoxemic respiratory failure,s/p mechanical ventilator support; Drug overdose; Chronic obstructive pulmonary disease ; s/p left BKA for critical limb ischemia Seen and examined at bedside; 24-hour events reviewed; nursing and respiratory care staff consulted; no adverse overnight events reported to me; Vitals, labs,medications, chart reviewed. On going complaints of left limb pain. Denies any chest pain, no shortness of breath, no fevers or chills Objective Vital Signs - 12hr 10/31/18 10/31/18 10/31/18 21:30 21:36 22:00 Temperature Pulse Rate 97 H 92 H Pulse Rate [ Apical] Respiratory 16 16 Rate Blood Pressure 101/55 99/56 O2 Sat by Pulse 94 Oximetry 10/31/18 10/31/18 10/31/18 22:30 22:33 22:48 Temperature Pulse Rate 92 H 89 92 H Pulse Rate [ Apical] Respiratory 14 Rate Blood Pressure 101/55 98/65 99/56 O2 Sat by Pulse 99 Oximetry 10/31/18 10/31/18 10/31/18 23:00 23:04 23:30 Temperature Pulse Rate 90 88 97 H Pulse Rate [ Apical] Respiratory 15 10 L 17 Rate Blood Pressure 105/65 105/65 98/65 O2 Sat by Pulse 98 99 Oximetry 11/01/18 11/01/18 11/01/18 00:00 00:30 01:00 Temperature 98.1 F Pulse Rate 96 H 95 H Pulse Rate [ 96 H Apical] Respiratory 22 16 Rate Blood Pressure 110/56 92/48 100/55 O2 Sat by Pulse 96 Oximetry 11/01/18 11/01/18 11/01/18 01:30 02:01 02:31 Temperature Pulse Rate 103 H Pulse Rate [ Apical] Respiratory 19 Rate Blood Pressure 100/55 101/52 104/52 O2 Sat by Pulse Oximetry 11/01/18 11/01/18 11/01/18 03:05 03:30 04:00 Temperature 98.0 F Pulse Rate 101 H 101 H 105 H Pulse Rate [ Apical] Respiratory 17 22 Rate Blood Pressure 104/52 124/71 104/52 O2 Sat by Pulse Oximetry 11/01/18 11/01/18 11/01/18 04:30 05:00 05:30 Temperature Pulse Rate 114 H 107 H 106 H Pulse Rate [ Apical] Respiratory 23 14 22 Rate Blood Pressure 133/57 117/60 119/58 O2 Sat by Pulse Oximetry 11/01/18 11/01/18 11/01/18 06:00 06:30 09:05 Temperature Pulse Rate 103 H 104 H 111 H Pulse Rate [ Apical] Respiratory 24 17 Rate Blood Pressure 126/65 126/73 145/74 O2 Sat by Pulse Oximetry Constitutional: no acute distress, other (middle aged but chronically ill looking CM; Atraumatic) Eyes: non-icteric ENT: oropharynx moist Neck: supple, no lymphadenopathy, no JVD Effort: normal Ascultation: Bilateral: diminished breath sounds, rhonchi Percussion: Bilateral: not dull Cardiovascular: irregular rhythm, other (No R/M) Gastrointestinal: normoactive bowel sounds, soft, non-tender, non-distended Integumentary: other (poor turgor) Extremities: no edema, other (s/p Left KBA, ischemic toes on the right with poor pedal pulses) Neurologic: pupils equal and round, other (Left hemiparesis, improving) Psychiatric: mood appropriate, affect normal CBC and BMP: 11/02/18 04:56 11/02/18 04:56 ABG, PT/INR, D-dimer: ABG POC ABG pH 7.393 (7.35-7.45) 10/16/18 12:51 POC ABG pCO2 48.9 (35-45) H 10/16/18 12:51 POC ABG pO2 92 (80-105) 10/16/18 12:51 POC ABG HCO3 29.8 (22-26 mml/L) 10/16/18 12:51 POC ABG Total CO2 31 (23-27mmol/L) 10/16/18 12:51 POC ABG O2 Sat 97 10/16/18 12:51 PT/INR, D-dimer PT 13.9 Sec. (12.2-14.9) 10/29/18 07:11 INR 1.01 (0.87-1.13) 10/29/18 07:11 Abnormal lab findings: Abnormal Labs 10/11/18 10/11/18 10/11/18 00:16 00:16 00:16 WBC 20.1 H RBC Hgb Hct MCV 98 H MCHC RDW 15.4 H Plt Count Lymph % (Auto) Whitman % (Auto) Whitman # Seg Neutrophils % Seg Neuts % (Manual) Lymphocytes % (Manual) 5.0 L Monocytes % (Manual) 25.0 H Seg Neutrophils # Seg Neutrophils # Man 9.2 H Lymphocytes # (Manual) 1.0 L Monocytes # (Manual) 5.0 H APTT Heparin Anti-Xa Level POC ABG pH POC ABG pCO2 POC ABG pO2 Sodium Potassium 5.8 H Chloride Carbon Dioxide 17 L BUN Creatinine 2.2 H Glucose 348 H POC Glucose Lactic Acid 13.70 H* Calcium 7.7 L Phosphorus Total Bilirubin 1.50 H AST 179 H ALT 110 H Total Creatine Kinase 324 H CK-MB (CK-2) Troponin T 0.257 H* Total Protein 5.9 L Albumin 2.9 L HDL Cholesterol 19 L Salicylates Acetaminophen Crossmatch 10/11/18 10/11/18 10/11/18 00:16 00:16 01:21 WBC RBC Hgb Hct MCV MCHC RDW Plt Count Lymph % (Auto) Whitman % (Auto) Whitman # Seg Neutrophils % Seg Neuts % (Manual) Lymphocytes % (Manual) Monocytes % (Manual) Seg Neutrophils # Seg Neutrophils # Man Lymphocytes # (Manual) Monocytes # (Manual) APTT Heparin Anti-Xa Level POC ABG pH 7.110 L POC ABG pCO2 50.3 H POC ABG pO2 65 L Sodium Potassium Chloride Carbon Dioxide BUN Creatinine Glucose POC Glucose Lactic Acid Calcium Phosphorus Total Bilirubin AST ALT Total Creatine Kinase CK-MB (CK-2) Troponin T Total Protein Albumin HDL Cholesterol Salicylates < 0.3 L Acetaminophen < 5.0 L Crossmatch 10/11/18 10/11/18 10/11/18 01:22 03:27 04:14 WBC RBC Hgb Hct MCV MCHC RDW Plt Count Lymph % (Auto) Whitman % (Auto) Whitman # Seg Neutrophils % Seg Neuts % (Manual) Lymphocytes % (Manual) Monocytes % (Manual) Seg Neutrophils # Seg Neutrophils # Man Lymphocytes # (Manual) Monocytes # (Manual) APTT Heparin Anti-Xa Level POC ABG pH POC ABG pCO2 POC ABG pO2 Sodium Potassium Chloride Carbon Dioxide BUN Creatinine Glucose POC Glucose Lactic Acid 8.50 H* 4.10 H* Calcium Phosphorus 4.90 H Total Bilirubin AST ALT Total Creatine Kinase CK-MB (CK-2) Troponin T Total Protein Albumin HDL Cholesterol Salicylates Acetaminophen Crossmatch 10/11/18 10/11/18 10/11/18 04:14 04:14 04:14 WBC RBC Hgb Hct MCV MCHC RDW Plt Count Lymph % (Auto) Whitman % (Auto) Whitman # Seg Neutrophils % Seg Neuts % (Manual) Lymphocytes % (Manual) Monocytes % (Manual) Seg Neutrophils # Seg Neutrophils # Man Lymphocytes # (Manual) Monocytes # (Manual) APTT Heparin Anti-Xa Level POC ABG pH POC ABG pCO2 POC ABG pO2 Sodium Potassium 5.6 H Chloride Carbon Dioxide 19 L BUN Creatinine 1.6 H Glucose 329 H POC Glucose 328 H Lactic Acid Calcium 7.3 L Phosphorus Total Bilirubin AST ALT Total Creatine Kinase CK-MB (CK-2) Troponin T 1.130 H* D Total Protein Albumin HDL Cholesterol Salicylates Acetaminophen Crossmatch 10/11/18 10/11/18 10/11/18 05:10 05:32 05:58 WBC RBC Hgb Hct MCV MCHC RDW Plt Count Lymph % (Auto) Whitman % (Auto) Whitman # Seg Neutrophils % Seg Neuts % (Manual) Lymphocytes % (Manual) Monocytes % (Manual) Seg Neutrophils # Seg Neutrophils # Man Lymphocytes # (Manual) Monocytes # (Manual) APTT Heparin Anti-Xa Level POC ABG pH 7.259 L POC ABG pCO2 45.6 H POC ABG pO2 Sodium Potassium Chloride 108.6 H Carbon Dioxide 20 L BUN Creatinine 1.8 H Glucose 269 H POC Glucose 273 H Lactic Acid Calcium 7.0 L Phosphorus Total Bilirubin AST ALT Total Creatine Kinase CK-MB (CK-2) Troponin T Total Protein Albumin HDL Cholesterol Salicylates Acetaminophen Crossmatch 10/11/18 10/11/18 10/11/18 05:58 06:39 07:00 WBC RBC Hgb Hct MCV MCHC RDW Plt Count Lymph % (Auto) Whitman % (Auto) Whitman # Seg Neutrophils % Seg Neuts % (Manual) Lymphocytes % (Manual) Monocytes % (Manual) Seg Neutrophils # Seg Neutrophils # Man Lymphocytes # (Manual) Monocytes # (Manual) APTT Heparin Anti-Xa Level POC ABG pH POC ABG pCO2 POC ABG pO2 Sodium Potassium Chloride Carbon Dioxide BUN Creatinine Glucose POC Glucose 247 H Lactic Acid 3.20 H* 3.30 H* Calcium Phosphorus Total Bilirubin AST ALT Total Creatine Kinase CK-MB (CK-2) Troponin T Total Protein Albumin HDL Cholesterol Salicylates Acetaminophen Crossmatch 10/11/18 10/11/18 10/11/18 07:00 07:30 07:36 WBC RBC Hgb Hct MCV MCHC RDW Plt Count Lymph % (Auto) Whitman % (Auto) Whitman # Seg Neutrophils % Seg Neuts % (Manual) Lymphocytes % (Manual) Monocytes % (Manual) Seg Neutrophils # Seg Neutrophils # Man Lymphocytes # (Manual) Monocytes # (Manual) APTT Heparin Anti-Xa Level POC ABG pH POC ABG pCO2 POC ABG pO2 Sodium 146 H Potassium Chloride 112.1 H Carbon Dioxide 21 L BUN Creatinine 1.6 H Glucose 218 H POC Glucose Lactic Acid 3.20 H* Calcium 7.0 L Phosphorus Total Bilirubin AST ALT Total Creatine Kinase CK-MB (CK-2) Troponin T 1.020 H* Total Protein Albumin HDL Cholesterol Salicylates Acetaminophen Crossmatch 10/11/18 10/11/18 10/11/18 07:43 08:29 08:29 WBC RBC Hgb 16.2 H Hct 49.9 H D MCV MCHC RDW Plt Count Lymph % (Auto) Whitman % (Auto) Whitman # Seg Neutrophils % Seg Neuts % (Manual) Lymphocytes % (Manual) Monocytes % (Manual) Seg Neutrophils # Seg Neutrophils # Man Lymphocytes # (Manual) Monocytes # (Manual) APTT Heparin Anti-Xa Level POC ABG pH POC ABG pCO2 POC ABG pO2 Sodium Potassium Chloride Carbon Dioxide BUN Creatinine Glucose POC Glucose 174 H Lactic Acid 3.90 H* Calcium Phosphorus Total Bilirubin AST ALT Total Creatine Kinase CK-MB (CK-2) Troponin T Total Protein Albumin HDL Cholesterol Salicylates Acetaminophen Crossmatch 10/11/18 10/11/18 10/11/18 08:29 08:42 11:05 WBC RBC Hgb Hct MCV MCHC RDW Plt Count Lymph % (Auto) Whitman % (Auto) Whitman # Seg Neutrophils % Seg Neuts % (Manual) Lymphocytes % (Manual) Monocytes % (Manual) Seg Neutrophils # Seg Neutrophils # Man Lymphocytes # (Manual) Monocytes # (Manual) APTT 24.1 L Heparin Anti-Xa Level POC ABG pH POC ABG pCO2 POC ABG pO2 Sodium 147 H Potassium Chloride 113.3 H Carbon Dioxide 21 L BUN Creatinine 1.7 H Glucose 119 H POC Glucose 164 H Lactic Acid Calcium 7.7 L Phosphorus Total Bilirubin AST ALT Total Creatine Kinase CK-MB (CK-2) Troponin T Total Protein Albumin HDL Cholesterol Salicylates Acetaminophen Crossmatch 10/11/18 10/11/18 10/11/18 11:05 11:06 12:30 WBC RBC Hgb Hct MCV MCHC RDW Plt Count Lymph % (Auto) Whitman % (Auto) Whitman # Seg Neutrophils % Seg Neuts % (Manual) Lymphocytes % (Manual) Monocytes % (Manual) Seg Neutrophils # Seg Neutrophils # Man Lymphocytes # (Manual) Monocytes # (Manual) APTT Heparin Anti-Xa Level POC ABG pH POC ABG pCO2 POC ABG pO2 Sodium 148 H Potassium Chloride 113.4 H Carbon Dioxide 21 L BUN Creatinine 1.6 H Glucose 119 H POC Glucose 116 H Lactic Acid 3.20 H* Calcium 7.5 L Phosphorus Total Bilirubin AST ALT Total Creatine Kinase CK-MB (CK-2) Troponin T Total Protein Albumin HDL Cholesterol Salicylates Acetaminophen Crossmatch 10/11/18 10/11/18 10/11/18 12:30 13:16 13:25 WBC RBC Hgb Hct MCV MCHC RDW Plt Count Lymph % (Auto) Whitman % (Auto) Whitman # Seg Neutrophils % Seg Neuts % (Manual) Lymphocytes % (Manual) Monocytes % (Manual) Seg Neutrophils # Seg Neutrophils # Man Lymphocytes # (Manual) Monocytes # (Manual) APTT Heparin Anti-Xa Level POC ABG pH 7.247 L POC ABG pCO2 48.4 H POC ABG pO2 Sodium Potassium Chloride Carbon Dioxide BUN Creatinine Glucose POC Glucose 112 H Lactic Acid 2.70 H* Calcium Phosphorus Total Bilirubin AST ALT Total Creatine Kinase CK-MB (CK-2) Troponin T Total Protein Albumin HDL Cholesterol Salicylates Acetaminophen Crossmatch 10/11/18 10/11/18 10/11/18 14:41 15:27 16:13 WBC RBC Hgb Hct MCV MCHC RDW Plt Count Lymph % (Auto) Whitman % (Auto) Whitman # Seg Neutrophils % Seg Neuts % (Manual) Lymphocytes % (Manual) Monocytes % (Manual) Seg Neutrophils # Seg Neutrophils # Man Lymphocytes # (Manual) Monocytes # (Manual) APTT Heparin Anti-Xa Level POC ABG pH POC ABG pCO2 POC ABG pO2 Sodium Potassium Chloride Carbon Dioxide BUN Creatinine Glucose POC Glucose 127 H 141 H 134 H Lactic Acid Calcium Phosphorus Total Bilirubin AST ALT Total Creatine Kinase CK-MB (CK-2) Troponin T Total Protein Albumin HDL Cholesterol Salicylates Acetaminophen Crossmatch 10/11/18 10/11/18 10/11/18 17:18 18:23 19:38 WBC RBC Hgb Hct MCV MCHC RDW Plt Count Lymph % (Auto) Whitman % (Auto) Whitman # Seg Neutrophils % Seg Neuts % (Manual) Lymphocytes % (Manual) Monocytes % (Manual) Seg Neutrophils # Seg Neutrophils # Man Lymphocytes # (Manual) Monocytes # (Manual) APTT Heparin Anti-Xa Level POC ABG pH POC ABG pCO2 POC ABG pO2 Sodium 148 H Potassium Chloride 112.7 H Carbon Dioxide BUN 23 H Creatinine Glucose 143 H POC Glucose 132 H 129 H Lactic Acid Calcium 7.9 L Phosphorus Total Bilirubin AST ALT Total Creatine Kinase CK-MB (CK-2) Troponin T Total Protein Albumin HDL Cholesterol Salicylates Acetaminophen Crossmatch 10/11/18 10/11/18 10/11/18 20:19 20:36 21:01 WBC RBC Hgb Hct MCV MCHC RDW Plt Count Lymph % (Auto) Whitman % (Auto) Whitman # Seg Neutrophils % Seg Neuts % (Manual) Lymphocytes % (Manual) Monocytes % (Manual) Seg Neutrophils # Seg Neutrophils # Man Lymphocytes # (Manual) Monocytes # (Manual) APTT Heparin Anti-Xa Level POC ABG pH 7.281 L POC ABG pCO2 POC ABG pO2 Sodium Potassium Chloride Carbon Dioxide BUN Creatinine Glucose POC Glucose 129 H 151 H Lactic Acid Calcium Phosphorus Total Bilirubin AST ALT Total Creatine Kinase CK-MB (CK-2) Troponin T Total Protein Albumin HDL Cholesterol Salicylates Acetaminophen Crossmatch 10/11/18 10/11/18 10/12/18 22:04 23:15 01:18 WBC RBC Hgb Hct MCV MCHC RDW Plt Count Lymph % (Auto) Whitman % (Auto) Whitman # Seg Neutrophils % Seg Neuts % (Manual) Lymphocytes % (Manual) Monocytes % (Manual) Seg Neutrophils # Seg Neutrophils # Man Lymphocytes # (Manual) Monocytes # (Manual) APTT Heparin Anti-Xa Level POC ABG pH POC ABG pCO2 POC ABG pO2 Sodium Potassium Chloride Carbon Dioxide BUN Creatinine Glucose POC Glucose 147 H 143 H 158 H Lactic Acid Calcium Phosphorus Total Bilirubin AST ALT Total Creatine Kinase CK-MB (CK-2) Troponin T Total Protein Albumin HDL Cholesterol Salicylates Acetaminophen Crossmatch 10/12/18 10/12/18 10/12/18 02:13 03:18 04:04 WBC RBC Hgb Hct MCV MCHC RDW Plt Count Lymph % (Auto) Whitman % (Auto) Whitman # Seg Neutrophils % Seg Neuts % (Manual) Lymphocytes % (Manual) Monocytes % (Manual) Seg Neutrophils # Seg Neutrophils # Man Lymphocytes # (Manual) Monocytes # (Manual) APTT Heparin Anti-Xa Level POC ABG pH POC ABG pCO2 POC ABG pO2 Sodium 147 H Potassium Chloride 111.1 H Carbon Dioxide BUN 30 H Creatinine 2.0 H Glucose 154 H POC Glucose 148 H 142 H Lactic Acid Calcium 8.1 L Phosphorus Total Bilirubin AST 269 H ALT 204 H Total Creatine Kinase 3647 H CK-MB (CK-2) 48.3 H Troponin T 2.230 H* D Total Protein 5.8 L Albumin 2.6 L HDL Cholesterol Salicylates Acetaminophen Crossmatch 10/12/18 10/12/18 10/12/18 04:04 04:08 04:19 WBC 24.4 H RBC Hgb Hct MCV MCHC RDW Plt Count Lymph % (Auto) Whitman % (Auto) Whitman # Seg Neutrophils % Seg Neuts % (Manual) 32.0 L Lymphocytes % (Manual) Monocytes % (Manual) 8.0 H Seg Neutrophils # Seg Neutrophils # Man 7.8 H Lymphocytes # (Manual) Monocytes # (Manual) 2.0 H APTT Heparin Anti-Xa Level POC ABG pH 7.317 L POC ABG pCO2 49.3 H POC ABG pO2 Sodium Potassium Chloride Carbon Dioxide BUN Creatinine Glucose POC Glucose 143 H Lactic Acid Calcium Phosphorus Total Bilirubin AST ALT Total Creatine Kinase CK-MB (CK-2) Troponin T Total Protein Albumin HDL Cholesterol Salicylates Acetaminophen Crossmatch 10/12/18 10/12/18 10/12/18 05:29 06:52 08:09 WBC RBC Hgb Hct MCV MCHC RDW Plt Count Lymph % (Auto) Whitman % (Auto) Whitman # Seg Neutrophils % Seg Neuts % (Manual) Lymphocytes % (Manual) Monocytes % (Manual) Seg Neutrophils # Seg Neutrophils # Man Lymphocytes # (Manual) Monocytes # (Manual) APTT Heparin Anti-Xa Level POC ABG pH 7.322 L POC ABG pCO2 46.5 H POC ABG pO2 Sodium Potassium Chloride Carbon Dioxide BUN Creatinine Glucose POC Glucose 196 H 226 H Lactic Acid Calcium Phosphorus Total Bilirubin AST ALT Total Creatine Kinase CK-MB (CK-2) Troponin T Total Protein Albumin HDL Cholesterol Salicylates Acetaminophen Crossmatch 10/12/18 10/12/18 10/12/18 08:38 10:03 15:50 WBC RBC Hgb Hct MCV MCHC RDW Plt Count Lymph % (Auto) Whitman % (Auto) Whitman # Seg Neutrophils % Seg Neuts % (Manual) Lymphocytes % (Manual) Monocytes % (Manual) Seg Neutrophils # Seg Neutrophils # Man Lymphocytes # (Manual) Monocytes # (Manual) APTT Heparin Anti-Xa Level POC ABG pH POC ABG pCO2 POC ABG pO2 Sodium Potassium Chloride Carbon Dioxide BUN Creatinine Glucose POC Glucose 138 H 148 H 221 H Lactic Acid Calcium Phosphorus Total Bilirubin AST ALT Total Creatine Kinase CK-MB (CK-2) Troponin T Total Protein Albumin HDL Cholesterol Salicylates Acetaminophen Crossmatch 10/12/18 10/12/18 10/12/18 18:39 20:56 21:34 WBC RBC Hgb Hct MCV MCHC RDW Plt Count Lymph % (Auto) Whitman % (Auto) Whitman # Seg Neutrophils % Seg Neuts % (Manual) Lymphocytes % (Manual) Monocytes % (Manual) Seg Neutrophils # Seg Neutrophils # Man Lymphocytes # (Manual) Monocytes # (Manual) APTT Heparin Anti-Xa Level POC ABG pH 7.336 L POC ABG pCO2 46.0 H POC ABG pO2 Sodium Potassium Chloride Carbon Dioxide BUN Creatinine Glucose POC Glucose 255 H 260 H Lactic Acid Calcium Phosphorus Total Bilirubin AST ALT Total Creatine Kinase CK-MB (CK-2) Troponin T Total Protein Albumin HDL Cholesterol Salicylates Acetaminophen Crossmatch 10/13/18 10/13/18 10/13/18 02:29 05:09 05:40 WBC 17.0 H RBC Hgb Hct MCV MCHC RDW Plt Count Lymph % (Auto) Whitman % (Auto) 9.2 H Whitman # 1.6 H Seg Neutrophils % 76.2 H Seg Neuts % (Manual) Lymphocytes % (Manual) Monocytes % (Manual) Seg Neutrophils # 12.9 H Seg Neutrophils # Man Lymphocytes # (Manual) Monocytes # (Manual) APTT Heparin Anti-Xa Level POC ABG pH POC ABG pCO2 POC ABG pO2 Sodium Potassium Chloride Carbon Dioxide BUN Creatinine Glucose POC Glucose 216 H 249 H Lactic Acid Calcium Phosphorus Total Bilirubin AST ALT Total Creatine Kinase CK-MB (CK-2) Troponin T Total Protein Albumin HDL Cholesterol Salicylates Acetaminophen Crossmatch 10/13/18 10/13/18 10/13/18 05:40 05:40 09:46 WBC RBC Hgb Hct MCV MCHC RDW Plt Count Lymph % (Auto) Whitman % (Auto) Whitman # Seg Neutrophils % Seg Neuts % (Manual) Lymphocytes % (Manual) Monocytes % (Manual) Seg Neutrophils # Seg Neutrophils # Man Lymphocytes # (Manual) Monocytes # (Manual) APTT Heparin Anti-Xa Level POC ABG pH POC ABG pCO2 POC ABG pO2 Sodium 146 H Potassium Chloride 109.8 H Carbon Dioxide BUN 35 H Creatinine Glucose 245 H POC Glucose 235 H Lactic Acid Calcium 7.9 L Phosphorus Total Bilirubin AST ALT Total Creatine Kinase CK-MB (CK-2) Troponin T 0.952 H* D Total Protein Albumin HDL Cholesterol Salicylates Acetaminophen Crossmatch 10/13/18 10/13/18 10/13/18 13:58 16:15 17:30 WBC RBC Hgb Hct MCV MCHC RDW Plt Count Lymph % (Auto) Whitman % (Auto) Whitman # Seg Neutrophils % Seg Neuts % (Manual) Lymphocytes % (Manual) Monocytes % (Manual) Seg Neutrophils # Seg Neutrophils # Man Lymphocytes # (Manual) Monocytes # (Manual) APTT Heparin Anti-Xa Level POC ABG pH POC ABG pCO2 51.2 H POC ABG pO2 Sodium Potassium Chloride Carbon Dioxide BUN Creatinine Glucose POC Glucose 139 H Lactic Acid Calcium Phosphorus Total Bilirubin AST ALT Total Creatine Kinase CK-MB (CK-2) Troponin T 0.816 H* Total Protein Albumin HDL Cholesterol Salicylates Acetaminophen Crossmatch 10/13/18 10/14/18 10/14/18 21:25 01:49 04:52 WBC RBC Hgb Hct MCV MCHC RDW Plt Count Lymph % (Auto) Whitman % (Auto) Whitman # Seg Neutrophils % Seg Neuts % (Manual) Lymphocytes % (Manual) Monocytes % (Manual) Seg Neutrophils # Seg Neutrophils # Man Lymphocytes # (Manual) Monocytes # (Manual) APTT Heparin Anti-Xa Level POC ABG pH POC ABG pCO2 56.0 H POC ABG pO2 Sodium Potassium Chloride Carbon Dioxide BUN Creatinine Glucose POC Glucose 205 H 166 H Lactic Acid Calcium Phosphorus Total Bilirubin AST ALT Total Creatine Kinase CK-MB (CK-2) Troponin T Total Protein Albumin HDL Cholesterol Salicylates Acetaminophen Crossmatch 10/14/18 10/14/18 10/14/18 05:32 09:45 09:45 WBC RBC Hgb 11.4 L Hct 34.5 L MCV MCHC RDW Plt Count 139 L Lymph % (Auto) Whitman % (Auto) Whitman # Seg Neutrophils % Seg Neuts % (Manual) Lymphocytes % (Manual) Monocytes % (Manual) Seg Neutrophils # Seg Neutrophils # Man Lymphocytes # (Manual) Monocytes # (Manual) APTT Heparin Anti-Xa Level POC ABG pH POC ABG pCO2 POC ABG pO2 Sodium 148 H Potassium Chloride 107.3 H Carbon Dioxide 34 H D BUN Creatinine 0.7 L D Glucose 191 H POC Glucose 164 H Lactic Acid Calcium 7.3 L Phosphorus Total Bilirubin AST 110 H ALT 91 H Total Creatine Kinase CK-MB (CK-2) Troponin T Total Protein 4.9 L Albumin 2.0 L HDL Cholesterol Salicylates Acetaminophen Crossmatch 10/14/18 10/14/18 10/14/18 10:54 12:20 18:30 WBC RBC Hgb Hct MCV MCHC RDW Plt Count Lymph % (Auto) Whitman % (Auto) Whitman # Seg Neutrophils % Seg Neuts % (Manual) Lymphocytes % (Manual) Monocytes % (Manual) Seg Neutrophils # Seg Neutrophils # Man Lymphocytes # (Manual) Monocytes # (Manual) APTT Heparin Anti-Xa Level POC ABG pH POC ABG pCO2 POC ABG pO2 Sodium Potassium Chloride Carbon Dioxide BUN Creatinine Glucose POC Glucose 173 H 158 H 108 H Lactic Acid Calcium Phosphorus Total Bilirubin AST ALT Total Creatine Kinase CK-MB (CK-2) Troponin T Total Protein Albumin HDL Cholesterol Salicylates Acetaminophen Crossmatch 10/14/18 10/15/18 10/15/18 21:54 02:12 04:19 WBC RBC Hgb Hct MCV MCHC RDW Plt Count Lymph % (Auto) Whitman % (Auto) Whitman # Seg Neutrophils % Seg Neuts % (Manual) Lymphocytes % (Manual) Monocytes % (Manual) Seg Neutrophils # Seg Neutrophils # Man Lymphocytes # (Manual) Monocytes # (Manual) APTT Heparin Anti-Xa Level POC ABG pH 7.491 H POC ABG pCO2 45.1 H POC ABG pO2 Sodium Potassium Chloride Carbon Dioxide BUN Creatinine Glucose POC Glucose 110 H 164 H Lactic Acid Calcium Phosphorus Total Bilirubin AST ALT Total Creatine Kinase CK-MB (CK-2) Troponin T Total Protein Albumin HDL Cholesterol Salicylates Acetaminophen Crossmatch 10/15/18 10/15/18 10/15/18 04:55 05:43 06:20 WBC RBC Hgb 11.7 L Hct 34.7 L MCV MCHC RDW Plt Count Lymph % (Auto) Whitman % (Auto) Whitman # Seg Neutrophils % Seg Neuts % (Manual) Lymphocytes % (Manual) Monocytes % (Manual) Seg Neutrophils # Seg Neutrophils # Man Lymphocytes # (Manual) Monocytes # (Manual) APTT Heparin Anti-Xa Level POC ABG pH POC ABG pCO2 47.3 H POC ABG pO2 78 L Sodium Potassium Chloride Carbon Dioxide BUN Creatinine Glucose POC Glucose 250 H Lactic Acid Calcium Phosphorus Total Bilirubin AST ALT Total Creatine Kinase CK-MB (CK-2) Troponin T Total Protein Albumin HDL Cholesterol Salicylates Acetaminophen Crossmatch 10/15/18 10/15/18 10/15/18 12:00 12:00 12:11 WBC RBC Hgb 11.5 L Hct 34.0 L MCV MCHC RDW Plt Count Lymph % (Auto) Whitman % (Auto) Whitman # Seg Neutrophils % Seg Neuts % (Manual) Lymphocytes % (Manual) Monocytes % (Manual) Seg Neutrophils # Seg Neutrophils # Man Lymphocytes # (Manual) Monocytes # (Manual) APTT Heparin Anti-Xa Level POC ABG pH POC ABG pCO2 POC ABG pO2 Sodium 147 H Potassium Chloride 108.5 H Carbon Dioxide BUN Creatinine 0.7 L Glucose 209 H POC Glucose 197 H Lactic Acid Calcium 7.3 L Phosphorus Total Bilirubin AST ALT Total Creatine Kinase CK-MB (CK-2) Troponin T Total Protein Albumin HDL Cholesterol Salicylates Acetaminophen Crossmatch 10/15/18 10/15/18 10/15/18 15:48 18:34 21:29 WBC RBC Hgb Hct MCV MCHC RDW Plt Count Lymph % (Auto) Whitman % (Auto) [place]man # Seg Neutrophils % Seg Neuts % (Manual) Lymphocytes % (Manual) Monocytes % (Manual) Seg Neutrophils # Seg Neutrophils # Man Lymphocytes # (Manual) Monocytes # (Manual) APTT Heparin Anti-Xa Level POC ABG pH POC ABG pCO2 POC ABG pO2 Sodium Potassium Chloride Carbon Dioxide BUN Creatinine Glucose POC Glucose 220 H 249 H 209 H Lactic Acid Calcium Phosphorus Total Bilirubin AST ALT Total Creatine Kinase CK-MB (CK-2) Troponin T Total Protein Albumin HDL Cholesterol Salicylates Acetaminophen Crossmatch 10/16/18 10/16/18 10/16/18 02:16 03:50 05:57 WBC RBC Hgb Hct MCV MCHC RDW Plt Count Lymph % (Auto) Whitman % (Auto) Whitman # Seg Neutrophils % Seg Neuts % (Manual) Lymphocytes % (Manual) Monocytes % (Manual) Seg Neutrophils # Seg Neutrophils # Man Lymphocytes # (Manual) Monocytes # (Manual) APTT Heparin Anti-Xa Level POC ABG pH POC ABG pCO2 55.8 H POC ABG pO2 Sodium Potassium Chloride Carbon Dioxide BUN Creatinine Glucose POC Glucose 110 H 209 H Lactic Acid Calcium Phosphorus Total Bilirubin AST ALT Total Creatine Kinase CK-MB (CK-2) Troponin T Total Protein Albumin HDL Cholesterol Salicylates Acetaminophen Crossmatch 10/16/18 10/16/18 10/16/18 10:51 12:51 15:01 WBC RBC Hgb Hct MCV MCHC RDW Plt Count Lymph % (Auto) [place]man % (Auto) [place] # Seg Neutrophils % Seg Neuts % (Manual) Lymphocytes % (Manual) Monocytes % (Manual) Seg Neutrophils # Seg Neutrophils # Man Lymphocytes # (Manual) Monocytes # (Manual) APTT Heparin Anti-Xa Level POC ABG pH POC ABG pCO2 48.9 H POC ABG pO2 Sodium Potassium Chloride Carbon Dioxide BUN Creatinine Glucose POC Glucose 198 H 196 H Lactic Acid Calcium Phosphorus Total Bilirubin AST ALT Total Creatine Kinase CK-MB (CK-2) Troponin T Total Protein Albumin HDL Cholesterol Salicylates Acetaminophen Crossmatch 10/16/18 10/16/18 10/17/18 17:34 21:59 02:17 WBC RBC Hgb Hct MCV MCHC RDW Plt Count Lymph % (Auto) [place] % (Auto) [place] # Seg Neutrophils % Seg Neuts % (Manual) Lymphocytes % (Manual) Monocytes % (Manual) Seg Neutrophils # Seg Neutrophils # Man Lymphocytes # (Manual) Monocytes # (Manual) APTT Heparin Anti-Xa Level POC ABG pH POC ABG pCO2 POC ABG pO2 Sodium Potassium Chloride Carbon Dioxide BUN Creatinine Glucose POC Glucose 179 H 139 H 135 H Lactic Acid Calcium Phosphorus Total Bilirubin AST ALT Total Creatine Kinase CK-MB (CK-2) Troponin T Total Protein Albumin HDL Cholesterol Salicylates Acetaminophen Crossmatch 10/17/18 10/17/18 10/17/18 05:40 05:47 10:18 WBC RBC Hgb 11.3 L Hct 33.2 L MCV MCHC RDW Plt Count Lymph % (Auto) [place] % (Auto) [place] # Seg Neutrophils % Seg Neuts % (Manual) Lymphocytes % (Manual) Monocytes % (Manual) Seg Neutrophils # Seg Neutrophils # Man Lymphocytes # (Manual) Monocytes # (Manual) APTT Heparin Anti-Xa Level POC ABG pH POC ABG pCO2 POC ABG pO2 Sodium Potassium Chloride Carbon Dioxide BUN Creatinine Glucose POC Glucose 125 H 139 H Lactic Acid Calcium Phosphorus Total Bilirubin AST ALT Total Creatine Kinase CK-MB (CK-2) Troponin T Total Protein Albumin HDL Cholesterol Salicylates Acetaminophen Crossmatch 10/17/18 10/18/18 10/18/18 23:11 08:49 11:31 WBC RBC Hgb Hct MCV MCHC RDW Plt Count Lymph % (Auto) [place] % (Auto) [place] # Seg Neutrophils % Seg Neuts % (Manual) Lymphocytes % (Manual) Monocytes % (Manual) Seg Neutrophils # Seg Neutrophils # Man Lymphocytes # (Manual) Monocytes # (Manual) APTT Heparin Anti-Xa Level POC ABG pH POC ABG pCO2 POC ABG pO2 Sodium Potassium Chloride Carbon Dioxide BUN Creatinine Glucose POC Glucose 165 H 125 H 182 H Lactic Acid Calcium Phosphorus Total Bilirubin AST ALT Total Creatine Kinase CK-MB (CK-2) Troponin T Total Protein Albumin HDL Cholesterol Salicylates Acetaminophen Crossmatch 10/18/18 10/18/18 10/19/18 16:12 21:02 00:28 WBC RBC Hgb 11.4 L Hct 33.6 L MCV MCHC RDW Plt Count Lymph % (Auto) [place]man % (Auto) 14.0 H Whitman # 1.2 H Seg Neutrophils % Seg Neuts % (Manual) Lymphocytes % (Manual) Monocytes % (Manual) Seg Neutrophils # Seg Neutrophils # Man Lymphocytes # (Manual) Monocytes # (Manual) APTT Heparin Anti-Xa Level POC ABG pH POC ABG pCO2 POC ABG pO2 Sodium Potassium Chloride Carbon Dioxide BUN Creatinine Glucose POC Glucose 168 H 324 H Lactic Acid Calcium Phosphorus Total Bilirubin AST ALT Total Creatine Kinase CK-MB (CK-2) Troponin T Total Protein Albumin HDL Cholesterol Salicylates Acetaminophen Crossmatch 10/19/18 10/19/18 10/19/18 04:57 04:57 07:32 WBC RBC Hgb 11.7 L Hct 34.0 L MCV MCHC RDW Plt Count Lymph % (Auto) [place] % (Auto) [place] # Seg Neutrophils % Seg Neuts % (Manual) Lymphocytes % (Manual) Monocytes % (Manual) Seg Neutrophils # Seg Neutrophils # Man Lymphocytes # (Manual) Monocytes # (Manual) APTT Heparin Anti-Xa Level POC ABG pH POC ABG pCO2 POC ABG pO2 Sodium Potassium 3.5 L Chloride 108.6 H Carbon Dioxide BUN Creatinine 0.6 L Glucose POC Glucose 159 H Lactic Acid Calcium 7.9 L Phosphorus Total Bilirubin AST ALT Total Creatine Kinase CK-MB (CK-2) Troponin T Total Protein Albumin HDL Cholesterol Salicylates Acetaminophen Crossmatch 10/19/18 10/19/18 10/20/18 16:25 20:59 12:04 WBC RBC Hgb Hct MCV MCHC RDW Plt Count Lymph % (Auto) [place] % (Auto) [place] # Seg Neutrophils % Seg Neuts % (Manual) Lymphocytes % (Manual) Monocytes % (Manual) Seg Neutrophils # Seg Neutrophils # Man Lymphocytes # (Manual) Monocytes # (Manual) APTT Heparin Anti-Xa Level POC ABG pH POC ABG pCO2 POC ABG pO2 Sodium Potassium Chloride Carbon Dioxide BUN Creatinine Glucose POC Glucose 134 H 110 H 338 H Lactic Acid Calcium Phosphorus Total Bilirubin AST ALT Total Creatine Kinase CK-MB (CK-2) Troponin T Total Protein Albumin HDL Cholesterol Salicylates Acetaminophen Crossmatch 10/20/18 10/20/18 10/21/18 17:55 22:07 04:59 WBC RBC Hgb 11.6 L Hct 33.9 L MCV MCHC RDW Plt Count Lymph % (Auto) [place]man % (Auto) 9.7 H Whitman # 0.9 H Seg Neutrophils % 70.7 H Seg Neuts % (Manual) Lymphocytes % (Manual) Monocytes % (Manual) Seg Neutrophils # Seg Neutrophils # Man Lymphocytes # (Manual) Monocytes # (Manual) APTT Heparin Anti-Xa Level POC ABG pH POC ABG pCO2 POC ABG pO2 Sodium Potassium Chloride Carbon Dioxide BUN Creatinine Glucose POC Glucose 146 H 164 H Lactic Acid Calcium Phosphorus Total Bilirubin AST ALT Total Creatine Kinase CK-MB (CK-2) Troponin T Total Protein Albumin HDL Cholesterol Salicylates Acetaminophen Crossmatch 10/21/18 10/21/18 10/21/18 04:59 07:52 11:39 WBC RBC Hgb Hct MCV MCHC RDW Plt Count Lymph % (Auto) [place] % (Auto) [place] # Seg Neutrophils % Seg Neuts % (Manual) Lymphocytes % (Manual) Monocytes % (Manual) Seg Neutrophils # Seg Neutrophils # Man Lymphocytes # (Manual) Monocytes # (Manual) APTT Heparin Anti-Xa Level POC ABG pH POC ABG pCO2 POC ABG pO2 Sodium Potassium 3.5 L Chloride 107.1 H Carbon Dioxide BUN Creatinine 0.5 L Glucose 158 H POC Glucose 142 H 194 H Lactic Acid Calcium 7.5 L Phosphorus Total Bilirubin AST ALT Total Creatine Kinase CK-MB (CK-2) Troponin T Total Protein 5.6 L Albumin 2.0 L HDL Cholesterol Salicylates Acetaminophen Crossmatch 10/21/18 10/21/18 10/22/18 17:05 20:37 05:38 WBC RBC 3.48 L Hgb 10.8 L Hct 31.7 L MCV MCHC RDW Plt Count 458 H Lymph % (Auto) [place]man % (Auto) 10.5 H [place] # Seg Neutrophils % Seg Neuts % (Manual) Lymphocytes % (Manual) Monocytes % (Manual) Seg Neutrophils # Seg Neutrophils # Man Lymphocytes # (Manual) Monocytes # (Manual) APTT Heparin Anti-Xa Level POC ABG pH POC ABG pCO2 POC ABG pO2 Sodium Potassium Chloride Carbon Dioxide BUN Creatinine Glucose POC Glucose 167 H 182 H Lactic Acid Calcium Phosphorus Total Bilirubin AST ALT Total Creatine Kinase CK-MB (CK-2) Troponin T Total Protein Albumin HDL Cholesterol Salicylates Acetaminophen Crossmatch 10/22/18 10/22/18 10/22/18 05:38 07:48 12:08 WBC RBC Hgb Hct MCV MCHC RDW Plt Count Lymph % (Auto) [place] % (Auto) [place] # Seg Neutrophils % Seg Neuts % (Manual) Lymphocytes % (Manual) Monocytes % (Manual) Seg Neutrophils # Seg Neutrophils # Man Lymphocytes # (Manual) Monocytes # (Manual) APTT Heparin Anti-Xa Level POC ABG pH POC ABG pCO2 POC ABG pO2 Sodium Potassium Chloride Carbon Dioxide BUN Creatinine 0.5 L Glucose 146 H POC Glucose 130 H 167 H Lactic Acid Calcium 7.8 L Phosphorus Total Bilirubin AST 41 H ALT Total Creatine Kinase CK-MB (CK-2) Troponin T Total Protein 5.5 L Albumin 2.1 L HDL Cholesterol Salicylates Acetaminophen Crossmatch 10/22/18 10/22/18 10/23/18 16:45 21:42 04:38 WBC RBC Hgb 11.7 L Hct 34.7 L MCV MCHC RDW Plt Count 523 H Lymph % (Auto) [place]man % (Auto) 8.7 H Whitman # Seg Neutrophils % 71.6 H Seg Neuts % (Manual) Lymphocytes % (Manual) Monocytes % (Manual) Seg Neutrophils # Seg Neutrophils # Man Lymphocytes # (Manual) Monocytes # (Manual) APTT Heparin Anti-Xa Level POC ABG pH POC ABG pCO2 POC ABG pO2 Sodium Potassium Chloride Carbon Dioxide BUN Creatinine Glucose POC Glucose 113 H 134 H Lactic Acid Calcium Phosphorus Total Bilirubin AST ALT Total Creatine Kinase CK-MB (CK-2) Troponin T Total Protein Albumin HDL Cholesterol Salicylates Acetaminophen Crossmatch 10/23/18 10/23/18 10/23/18 04:38 07:56 11:15 WBC RBC Hgb Hct MCV MCHC RDW Plt Count Lymph % (Auto) [place] % (Auto) [place] # Seg Neutrophils % Seg Neuts % (Manual) Lymphocytes % (Manual) Monocytes % (Manual) Seg Neutrophils # Seg Neutrophils # Man Lymphocytes # (Manual) Monocytes # (Manual) APTT Heparin Anti-Xa Level POC ABG pH POC ABG pCO2 POC ABG pO2 Sodium Potassium Chloride Carbon Dioxide BUN 7 L Creatinine 0.5 L Glucose 150 H POC Glucose 123 H 212 H Lactic Acid Calcium 8.0 L Phosphorus Total Bilirubin AST 55 H ALT Total Creatine Kinase CK-MB (CK-2) Troponin T Total Protein 6.2 L Albumin 2.3 L HDL Cholesterol Salicylates Acetaminophen Crossmatch 10/23/18 10/23/18 10/24/18 16:06 22:01 05:56 WBC 11.8 H RBC 3.64 L Hgb 11.2 L Hct 33.4 L MCV MCHC RDW Plt Count 564 H Lymph % (Auto) 11.3 L Whitman % (Auto) Whitman # Seg Neutrophils % 80.2 H Seg Neuts % (Manual) Lymphocytes % (Manual) Monocytes % (Manual) Seg Neutrophils # 9.4 H Seg Neutrophils # Man Lymphocytes # (Manual) Monocytes # (Manual) APTT Heparin Anti-Xa Level POC ABG pH POC ABG pCO2 POC ABG pO2 Sodium Potassium Chloride Carbon Dioxide BUN Creatinine Glucose POC Glucose 152 H 235 H Lactic Acid Calcium Phosphorus Total Bilirubin AST ALT Total Creatine Kinase CK-MB (CK-2) Troponin T Total Protein Albumin HDL Cholesterol Salicylates Acetaminophen Crossmatch 10/24/18 10/24/18 10/24/18 05:56 07:52 11:58 WBC RBC Hgb Hct MCV MCHC RDW Plt Count Lymph % (Auto) [place] % (Auto) [place] # Seg Neutrophils % Seg Neuts % (Manual) Lymphocytes % (Manual) Monocytes % (Manual) Seg Neutrophils # Seg Neutrophils # Man Lymphocytes # (Manual) Monocytes # (Manual) APTT Heparin Anti-Xa Level POC ABG pH POC ABG pCO2 POC ABG pO2 Sodium Potassium Chloride Carbon Dioxide BUN Creatinine 0.5 L Glucose 175 H POC Glucose 156 H 238 H Lactic Acid Calcium 8.0 L Phosphorus Total Bilirubin AST 44 H ALT Total Creatine Kinase CK-MB (CK-2) Troponin T Total Protein 6.2 L Albumin 2.4 L HDL Cholesterol Salicylates Acetaminophen Crossmatch 10/24/18 10/24/18 10/25/18 16:20 22:13 07:53 WBC RBC Hgb Hct MCV MCHC RDW Plt Count Lymph % (Auto) [place] % (Auto) [place] # Seg Neutrophils % Seg Neuts % (Manual) Lymphocytes % (Manual) Monocytes % (Manual) Seg Neutrophils # Seg Neutrophils # Man Lymphocytes # (Manual) Monocytes # (Manual) APTT Heparin Anti-Xa Level POC ABG pH POC ABG pCO2 POC ABG pO2 Sodium Potassium Chloride Carbon Dioxide BUN Creatinine Glucose POC Glucose 60 L 261 H 211 H Lactic Acid Calcium Phosphorus Total Bilirubin AST ALT Total Creatine Kinase CK-MB (CK-2) Troponin T Total Protein Albumin HDL Cholesterol Salicylates Acetaminophen Crossmatch 10/25/18 10/25/18 10/25/18 11:03 16:02 22:45 WBC RBC Hgb Hct MCV MCHC RDW Plt Count Lymph % (Auto) [place] % (Auto) [place] # Seg Neutrophils % Seg Neuts % (Manual) Lymphocytes % (Manual) Monocytes % (Manual) Seg Neutrophils # Seg Neutrophils # Man Lymphocytes # (Manual) Monocytes # (Manual) APTT Heparin Anti-Xa Level POC ABG pH POC ABG pCO2 POC ABG pO2 Sodium Potassium Chloride Carbon Dioxide BUN Creatinine Glucose POC Glucose 137 H 186 H 140 H Lactic Acid Calcium Phosphorus Total Bilirubin AST ALT Total Creatine Kinase CK-MB (CK-2) Troponin T Total Protein Albumin HDL Cholesterol Salicylates Acetaminophen Crossmatch 10/26/18 10/26/18 10/26/18 08:13 10:08 11:28 WBC RBC Hgb Hct MCV MCHC RDW Plt Count Lymph % (Auto) [place] % (Auto) [place] # Seg Neutrophils % Seg Neuts % (Manual) Lymphocytes % (Manual) Monocytes % (Manual) Seg Neutrophils # Seg Neutrophils # Man Lymphocytes # (Manual) Monocytes # (Manual) APTT Heparin Anti-Xa Level POC ABG pH POC ABG pCO2 POC ABG pO2 Sodium Potassium Chloride Carbon Dioxide BUN Creatinine Glucose POC Glucose 144 H 110 H 201 H Lactic Acid Calcium Phosphorus Total Bilirubin AST ALT Total Creatine Kinase CK-MB (CK-2) Troponin T Total Protein Albumin HDL Cholesterol Salicylates Acetaminophen Crossmatch 10/26/18 10/26/18 10/27/18 16:36 22:29 07:34 WBC RBC Hgb Hct MCV MCHC RDW Plt Count Lymph % (Auto) [place] % (Auto) [place] # Seg Neutrophils % Seg Neuts % (Manual) Lymphocytes % (Manual) Monocytes % (Manual) Seg Neutrophils # Seg Neutrophils # Man Lymphocytes # (Manual) Monocytes # (Manual) APTT Heparin Anti-Xa Level POC ABG pH POC ABG pCO2 POC ABG pO2 Sodium Potassium Chloride Carbon Dioxide BUN Creatinine Glucose POC Glucose 147 H 302 H 182 H Lactic Acid Calcium Phosphorus Total Bilirubin AST ALT Total Creatine Kinase CK-MB (CK-2) Troponin T Total Protein Albumin HDL Cholesterol Salicylates Acetaminophen Crossmatch 10/27/18 10/27/18 10/27/18 11:57 13:33 14:55 WBC RBC Hgb Hct MCV MCHC RDW Plt Count 550 H Lymph % (Auto) [place] % (Auto) [place] # Seg Neutrophils % Seg Neuts % (Manual) Lymphocytes % (Manual) Monocytes % (Manual) Seg Neutrophils # Seg Neutrophils # Man Lymphocytes # (Manual) Monocytes # (Manual) APTT Heparin Anti-Xa Level POC ABG pH POC ABG pCO2 POC ABG pO2 Sodium Potassium Chloride Carbon Dioxide BUN Creatinine Glucose POC Glucose 209 H Lactic Acid Calcium Phosphorus Total Bilirubin AST ALT Total Creatine Kinase CK-MB (CK-2) Troponin T Total Protein Albumin HDL Cholesterol Salicylates Acetaminophen Crossmatch See Detail 10/27/18 10/27/18 10/28/18 17:09 21:45 07:45 WBC RBC Hgb Hct MCV MCHC RDW Plt Count Lymph % (Auto) [place] % (Auto) [place] # Seg Neutrophils % Seg Neuts % (Manual) Lymphocytes % (Manual) Monocytes % (Manual) Seg Neutrophils # Seg Neutrophils # Man Lymphocytes # (Manual) Monocytes # (Manual) APTT Heparin Anti-Xa Level POC ABG pH POC ABG pCO2 POC ABG pO2 Sodium Potassium Chloride Carbon Dioxide BUN Creatinine Glucose POC Glucose 233 H 136 H 201 H Lactic Acid Calcium Phosphorus Total Bilirubin AST ALT Total Creatine Kinase CK-MB (CK-2) Troponin T Total Protein Albumin HDL Cholesterol Salicylates Acetaminophen Crossmatch 10/28/18 10/28/18 10/28/18 11:17 16:34 19:51 WBC RBC Hgb Hct MCV MCHC RDW Plt Count Lymph % (Auto) [place] % (Auto) [place] # Seg Neutrophils % Seg Neuts % (Manual) Lymphocytes % (Manual) Monocytes % (Manual) Seg Neutrophils # Seg Neutrophils # Man Lymphocytes # (Manual) Monocytes # (Manual) APTT Heparin Anti-Xa Level < 0.10 L POC ABG pH POC ABG pCO2 POC ABG pO2 Sodium Potassium Chloride Carbon Dioxide BUN Creatinine Glucose POC Glucose 116 H 168 H Lactic Acid Calcium Phosphorus Total Bilirubin AST ALT Total Creatine Kinase CK-MB (CK-2) Troponin T Total Protein Albumin HDL Cholesterol Salicylates Acetaminophen Crossmatch 10/28/18 10/29/18 10/29/18 21:52 07:11 07:11 WBC RBC Hgb Hct MCV MCHC RDW Plt Count 470 H Lymph % (Auto) [place] % (Auto) [place] # Seg Neutrophils % Seg Neuts % (Manual) Lymphocytes % (Manual) Monocytes % (Manual) Seg Neutrophils # Seg Neutrophils # Man Lymphocytes # (Manual) Monocytes # (Manual) APTT Heparin Anti-Xa Level 0.13 L POC ABG pH POC ABG pCO2 POC ABG pO2 Sodium Potassium Chloride Carbon Dioxide BUN Creatinine Glucose POC Glucose 159 H Lactic Acid Calcium Phosphorus Total Bilirubin AST ALT Total Creatine Kinase CK-MB (CK-2) Troponin T Total Protein Albumin HDL Cholesterol Salicylates Acetaminophen Crossmatch 10/29/18 10/29/18 10/29/18 07:11 07:43 11:29 WBC RBC Hgb Hct MCV MCHC RDW Plt Count Lymph % (Auto) [place] % (Auto) [place] # Seg Neutrophils % Seg Neuts % (Manual) Lymphocytes % (Manual) Monocytes % (Manual) Seg Neutrophils # Seg Neutrophils # Man Lymphocytes # (Manual) Monocytes # (Manual) APTT Heparin Anti-Xa Level POC ABG pH POC ABG pCO2 POC ABG pO2 Sodium Potassium Chloride Carbon Dioxide BUN 7 L Creatinine 0.5 L Glucose 122 H POC Glucose 147 H 165 H Lactic Acid Calcium 8.2 L Phosphorus Total Bilirubin AST ALT Total Creatine Kinase CK-MB (CK-2) Troponin T Total Protein Albumin HDL Cholesterol Salicylates Acetaminophen Crossmatch 10/29/18 10/29/18 10/30/18 19:50 22:11 00:11 WBC RBC Hgb Hct MCV MCHC RDW Plt Count Lymph % (Auto) [place] % (Auto) [place] # Seg Neutrophils % Seg Neuts % (Manual) Lymphocytes % (Manual) Monocytes % (Manual) Seg Neutrophils # Seg Neutrophils # Man Lymphocytes # (Manual) Monocytes # (Manual) APTT Heparin Anti-Xa Level 0.25 L POC ABG pH POC ABG pCO2 POC ABG pO2 Sodium Potassium Chloride Carbon Dioxide BUN Creatinine Glucose POC Glucose 166 H 173 H Lactic Acid Calcium Phosphorus Total Bilirubin AST ALT Total Creatine Kinase CK-MB (CK-2) Troponin T Total Protein Albumin HDL Cholesterol Salicylates Acetaminophen Crossmatch 10/30/18 10/30/18 10/30/18 04:22 04:22 07:47 WBC 27.0 H RBC 3.16 L Hgb 10.0 L Hct 28.8 L D MCV MCHC 35 H RDW Plt Count Lymph % (Auto) [place]man % (Auto) [place]man # Seg Neutrophils % Seg Neuts % (Manual) Lymphocytes % (Manual) 1.5 L Monocytes % (Manual) Seg Neutrophils # Seg Neutrophils # Man 18.6 H Lymphocytes # (Manual) 0.4 L Monocytes # (Manual) APTT Heparin Anti-Xa Level POC ABG pH POC ABG pCO2 POC ABG pO2 Sodium Potassium Chloride Carbon Dioxide BUN Creatinine Glucose 224 H POC Glucose 168 H Lactic Acid Calcium 7.5 L Phosphorus Total Bilirubin AST ALT Total Creatine Kinase CK-MB (CK-2) Troponin T Total Protein Albumin HDL Cholesterol Salicylates Acetaminophen Crossmatch 10/30/18 10/30/18 10/30/18 07:55 11:20 16:41 WBC RBC Hgb Hct MCV MCHC RDW Plt Count Lymph % (Auto) [place] % (Auto) [place] # Seg Neutrophils % Seg Neuts % (Manual) Lymphocytes % (Manual) Monocytes % (Manual) Seg Neutrophils # Seg Neutrophils # Man Lymphocytes # (Manual) Monocytes # (Manual) APTT Heparin Anti-Xa Level < 0.10 L POC ABG pH POC ABG pCO2 POC ABG pO2 Sodium Potassium Chloride Carbon Dioxide BUN Creatinine Glucose POC Glucose 165 H 142 H Lactic Acid Calcium Phosphorus Total Bilirubin AST ALT Total Creatine Kinase CK-MB (CK-2) Troponin T Total Protein Albumin HDL Cholesterol Salicylates Acetaminophen Crossmatch 10/30/18 10/30/18 10/31/18 20:51 21:20 05:21 WBC RBC Hgb 9.0 L Hct 26.6 L MCV MCHC RDW Plt Count Lymph % (Auto) [place] % (Auto) [place] # Seg Neutrophils % Seg Neuts % (Manual) Lymphocytes % (Manual) Monocytes % (Manual) Seg Neutrophils # Seg Neutrophils # Man Lymphocytes # (Manual) Monocytes # (Manual) APTT Heparin Anti-Xa Level < 0.10 L POC ABG pH POC ABG pCO2 POC ABG pO2 Sodium Potassium Chloride Carbon Dioxide BUN Creatinine Glucose POC Glucose 136 H Lactic Acid Calcium Phosphorus Total Bilirubin AST ALT Total Creatine Kinase CK-MB (CK-2) Troponin T Total Protein Albumin HDL Cholesterol Salicylates Acetaminophen Crossmatch 10/31/18 10/31/18 10/31/18 08:07 10:19 12:12 WBC RBC Hgb Hct MCV MCHC RDW Plt Count Lymph % (Auto) [place] % (Auto) [place] # Seg Neutrophils % Seg Neuts % (Manual) Lymphocytes % (Manual) Monocytes % (Manual) Seg Neutrophils # Seg Neutrophils # Man Lymphocytes # (Manual) Monocytes # (Manual) APTT Heparin Anti-Xa Level POC ABG pH POC ABG pCO2 POC ABG pO2 Sodium Potassium Chloride Carbon Dioxide BUN Creatinine Glucose POC Glucose 155 H 194 H Lactic Acid Calcium Phosphorus Total Bilirubin AST ALT Total Creatine Kinase CK-MB (CK-2) Troponin T Total Protein Albumin HDL Cholesterol Salicylates Acetaminophen Crossmatch See Detail 10/31/18 10/31/18 10/31/18 16:07 16:56 21:14 WBC RBC Hgb Hct MCV MCHC RDW Plt Count Lymph % (Auto) [place] % (Auto) [place] # Seg Neutrophils % Seg Neuts % (Manual) Lymphocytes % (Manual) Monocytes % (Manual) Seg Neutrophils # Seg Neutrophils # Man Lymphocytes # (Manual) Monocytes # (Manual) APTT Heparin Anti-Xa Level 1.20 H POC ABG pH POC ABG pCO2 POC ABG pO2 Sodium Potassium Chloride Carbon Dioxide BUN Creatinine Glucose POC Glucose 354 H 234 H Lactic Acid Calcium Phosphorus Total Bilirubin AST ALT Total Creatine Kinase CK-MB (CK-2) Troponin T Total Protein Albumin HDL Cholesterol Salicylates Acetaminophen Crossmatch 11/01/18 11/01/18 11/01/18 00:52 05:52 05:52 WBC 12.5 H RBC 2.95 L Hgb 9.1 L Hct 27.4 L MCV MCHC RDW 15.3 H Plt Count Lymph % (Auto) [place] % (Auto) [place] # Seg Neutrophils % Seg Neuts % (Manual) Lymphocytes % (Manual) Monocytes % (Manual) Seg Neutrophils # Seg Neutrophils # Man Lymphocytes # (Manual) Monocytes # (Manual) APTT Heparin Anti-Xa Level 1.53 H POC ABG pH POC ABG pCO2 POC ABG pO2 Sodium Potassium Chloride Carbon Dioxide BUN Creatinine 0.5 L Glucose 169 H POC Glucose Lactic Acid Calcium 8.3 L Phosphorus Total Bilirubin AST ALT Total Creatine Kinase CK-MB (CK-2) Troponin T Total Protein 6.2 L Albumin 2.3 L HDL Cholesterol Salicylates Acetaminophen Crossmatch Allied health notes reviewed: nursing
[2018-11-01] MEDS: HumuLIN R SUB-Q SCH ×4 (09:52→21:55)
--- NOTE | 2018-11-01 12:26 | Progress Note ---
Assessment and Plan Currently stable cardiac status. S/p RLE vascular procedure yesterday. Xarelto initiated per vascular team. Nothing further to add from cardiac perspective at this time. Will follow on as needed basis. The patient has been seen in conjunction with Dr. Charles who agrees with the assessment and plan of care. - Patient Problems (1) Altered mental state Current Visit: Yes Status: Acute Qualifiers: Altered mental status type: unspecified Qualified Code(s): R41.82 - Altered mental status, unspecified (2) Opiate overdose Current Visit: Yes Status: Suspected (3) Acute CVA (cerebrovascular accident) Current Visit: Yes Status: Acute (4) Cardiomyopathy Current Visit: Yes Status: Chronic (5) Paroxysmal atrial fibrillation Current Visit: Yes Status: Acute (6) Seizure Current Visit: Yes Status: Acute (7) Acute respiratory failure Current Visit: Yes Status: Acute (8) NSTEMI (non-ST elevated myocardial infarction) Current Visit: Yes Status: Acute (9) 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 Current Visit: Yes Status: Chronic (10) Hypotension Current Visit: Yes Status: Resolved Qualifiers: Hypotension type: unspecified hypotension type Qualified Code(s): I95.9 - Hypotension, unspecified (11) Acute renal insufficiency Current Visit: Yes Status: Acute (12) Lactic acid acidosis Current Visit: Yes Status: Acute (13) Diabetes mellitus with hyperglycemia Current Visit: Yes Status: Acute (14) Elevated liver enzymes Current Visit: Yes Status: Acute (15) History of hepatitis Current Visit: Yes Status: Chronic (16) History of rheumatic fever as a child Current Visit: Yes Status: Chronic (17) Polysubstance abuse Current Visit: Yes Status: Chronic (18) Tobacco use Current Visit: Yes Status: Chronic (19) Sepsis Current Visit: Yes Status: Acute Qualifiers: Sepsis type: sepsis due to unspecified organism Qualified Code(s): A41.9 - Sepsis, unspecified organism (20) Arterial thrombosis Current Visit: Yes Status: Acute (21) PVD (peripheral vascular disease) Current Visit: Yes Status: Chronic (22) Gangrene Current Visit: Yes Status: Acute Subjective Date of service: 11/01/18 Principal diagnosis: Ac hypercapnic hypoxemic Resp failure; Drug OD; AE-COPD; NINOSKA; Seizures Interval history: Pt resting in bed, no current cardiac complaints. s/p RLE vascular procedure yesterday. Objective Last Vital Signs Temp 98.1 F 11/01/18 08:00 Pulse 88 11/01/18 12:01 Resp 25 H 11/01/18 12:01 BP 107/75 11/01/18 12:01 Pulse Ox 98 11/01/18 12:01 - Physical Examination General: No Apparent Distress Neck: Positive: neck supple Cardiac: Positive: Reg Rate and Rhythm, S1/S2 Lungs: Positive: Decreased Breath Sounds Neuro: Positive: Grossly Intact Abdomen: Positive: Soft. Negative: Tender Skin: Negative: Rash Musculoskeletal: other (LLE BKA, RLE mottled) Extremities: Present: Other (chronic skin changes noted bilaterally. Patient has mottling of the left leg just proximal to the ankle) - Labs and Meds Cardiac Enzymes 11/01/18 Range/Units 05:52 AST 39 (5-40) units/L CBC 11/01/18 Range/Units 05:52 WBC 12.5 H (4.5-11.0) K/mm3 RBC 2.95 L (3.65-5.03) M/mm3 Hgb 9.1 L (11.8-15.2) gm/dl Hct 27.4 L (35.5-45.6) % Plt Count 282 (140-440) K/mm3 Comprehensive Metabolic Panel 11/01/18 Range/Units 05:52 Sodium 140 (137-145) mmol/L Potassium 3.8 (3.6-5.0) mmol/L Chloride 105.0 (98-107) mmol/L Carbon Dioxide 27 (22-30) mmol/L BUN 11 (9-20) mg/dL Creatinine 0.5 L (0.8-1.5) mg/dL Glucose 169 H (75-100) mg/dL Calcium 8.3 L (8.4-10.2) mg/dL AST 39 (5-40) units/L ALT 19 (7-56) units/L Alkaline Phosphatase 49 (35-129) units/L Total Protein 6.2 L (6.3-8.2) g/dL Albumin 2.3 L (3.9-5) g/dL - Imaging and Cardiology EKG: report reviewed, image reviewed Echo: report reviewed (TDS, mild LVH, severe global hypokinesis of LV, unable to estimate LVEF, trace TR. ) - EKG Sinus rhythms and dysrhythmias: sinus rhythm - Allied health notes Allied health notes reviewed: nursing
[2018-11-01] MEDS: PERCOCET 5/325 PO PRN ×2 (12:41→20:48)
--- NOTE | 2018-11-01 15:17 | Progress Note ---
Assessment and Plan 58-year-old male with multiple medical issues including multiple strokes status post partial craniectomy in March for prior strokes with bilateral lower extremity ischemia. 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 Hospitalist and neurology has cleared the patient for anticoagulation. Underwent left BKA, right open thrombectomy and aortic stenting and bilateral c ommon iliac artery stenting but right EIA occluded requiring another open thrombectomy and stenting of the right iliac system. POD1 from most recent surgery. L [employer] and right PT palpable. Incision c/d/i. No hematomas. Needs to be transitioned to Eliquis from heparin drip. Ordered eliquis. Restarte d baby aspirin. After transition, if doing well, may be transferred to SNF with rehab. Subjective Date of service: 11/01/18 Principal diagnosis: Ac hypercapnic hypoxemic Resp failure; Drug OD; AE-COPD; NINOSKA; Seizures Interval history: Right leg warm. PT palpable. Left thigh warm, stump not as warm, but not ischemic. 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 The right toes dry gangrene. Objective - Constitutional Vitals: Vital Signs - 12hr 11/01/18 11/01/18 11/01/18 03:30 04:00 04:30 Temperature 98.0 F Pulse Rate 101 H 105 H 114 H Pulse Rate [ Apical] Pulse Rate [ Bilateral] Respiratory 17 22 23 Rate Respiratory Rate [Bilateral ] Blood Pressure 124/71 104/52 133/57 O2 Sat by Pulse Oximetry 11/01/18 11/01/18 11/01/18 05:00 05:30 06:00 Temperature Pulse Rate 107 H 106 H 103 H Pulse Rate [ Apical] Pulse Rate [ Bilateral] Respiratory 14 22 24 Rate Respiratory Rate [Bilateral ] Blood Pressure 117/60 119/58 126/65 O2 Sat by Pulse Oximetry 11/01/18 11/01/18 11/01/18 06:30 07:00 07:30 Temperature Pulse Rate 104 H 108 H 102 H Pulse Rate [ Apical] Pulse Rate [ Bilateral] Respiratory 17 27 H 21 Rate Respiratory Rate [Bilateral ] Blood Pressure 126/73 127/78 137/80 O2 Sat by Pulse Oximetry 11/01/18 11/01/18 11/01/18 08:00 08:30 09:00 Temperature 98.1 F Pulse Rate 102 H 103 H 104 H Pulse Rate [ 86 Apical] Pulse Rate [ Bilateral] Respiratory 25 H 22 24 Rate Respiratory Rate [Bilateral ] Blood Pressure 137/80 145/74 145/74 O2 Sat by Pulse 95 99 Oximetry 11/01/18 11/01/18 11/01/18 09:05 09:30 10:00 Temperature Pulse Rate 111 H 109 H 107 H Pulse Rate [ Apical] Pulse Rate [ Bilateral] Respiratory 23 12 Rate Respiratory Rate [Bilateral ] Blood Pressure 145/74 123/77 119/69 O2 Sat by Pulse Oximetry 11/01/18 11/01/18 11/01/18 10:20 10:30 11:00 Temperature Pulse Rate 101 H 95 H Pulse Rate [ Apical] Pulse Rate [ Bilateral] Respiratory 13 22 Rate Respiratory Rate [Bilateral ] Blood Pressure 129/75 114/69 O2 Sat by Pulse 92 93 96 Oximetry 11/01/18 11/01/18 11/01/18 11:30 12:00 12:01 Temperature Pulse Rate 93 H 88 Pulse Rate [ 86 Apical] Pulse Rate [ Bilateral] Respiratory 24 26 H 25 H Rate Respiratory Rate [Bilateral ] Blood Pressure 109/82 107/75 O2 Sat by Pulse 96 98 Oximetry 11/01/18 11/01/18 13:45 13:52 Temperature Pulse Rate Pulse Rate [ Apical] Pulse Rate [ 93 H 94 H Bilateral] Respiratory Rate Respiratory 18 22 Rate [Bilateral ] Blood Pressure O2 Sat by Pulse Oximetry General appearance: Present: no acute distress - EENT Eyes: EOM intact ENT: hearing intact - Respiratory Respiratory effort: normal Extremities: pulses intact (right PT palpable ; left [employer] palpable; see subjective), normal temperature - Psychiatric Psychiatric: cooperative, agitated - Labs CBC & Chem 7: 11/01/18 05:52 11/01/18 05:52 Labs: Abnormal lab results 10/31/18 10/31/18 10/31/18 Range/Units 16:07 16:56 21:14 WBC (4.5-11.0) K/mm3 RBC (3.65-5.03) M/mm3 Hgb (11.8-15.2) gm/dl Hct (35.5-45.6) % RDW (13.2-15.2) % Heparin Anti-Xa Level 1.20 H (0.3-0.7) U.I./ml Creatinine (0.8-1.5) mg/dL Glucose (75-100) mg/dL POC Glucose 354 H 234 H (70-105) Calcium (8.4-10.2) mg/dL Total Protein (6.3-8.2) g/dL Albumin (3.9-5) g/dL 11/01/18 11/01/18 11/01/18 Range/Units 00:52 05:52 05:52 WBC 12.5 H (4.5-11.0) K/mm3 RBC 2.95 L (3.65-5.03) M/mm3 Hgb 9.1 L (11.8-15.2) gm/dl Hct 27.4 L (35.5-45.6) % RDW 15.3 H (13.2-15.2) % Heparin Anti-Xa Level 1.53 H (0.3-0.7) U.I./ml Creatinine 0.5 L (0.8-1.5) mg/dL Glucose 169 H (75-100) mg/dL POC Glucose (70-105) Calcium 8.3 L (8.4-10.2) mg/dL Total Protein 6.2 L (6.3-8.2) g/dL Albumin 2.3 L (3.9-5) g/dL 11/01/18 11/01/18 11/01/18 Range/Units 08:17 10:57 11:38 WBC (4.5-11.0) K/mm3 RBC (3.65-5.03) M/mm3 Hgb (11.8-15.2) gm/dl Hct (35.5-45.6) % RDW (13.2-15.2) % Heparin Anti-Xa Level 1.05 H (0.3-0.7) U.I./ml Creatinine (0.8-1.5) mg/dL Glucose (75-100) mg/dL POC Glucose 158 H 133 H (70-105) Calcium (8.4-10.2) mg/dL Total Protein (6.3-8.2) g/dL Albumin (3.9-5) g/dL Medications & Allergies - Medications Allergies/Adverse Reactions: Allergies No Known Allergies Allergy (Verified 10/31/14 11:20) Home Medications: Home Medications Medication Instructions Recorded Confirmed Last Taken Type Gabapentin [Neurontin] 90 mg PO Q8HR 04/22/15 04/22/15 04/21/15 History ALPRAZolam [Xanax TAB] 1 mg PO TID PRN #30 tablet 03/28/16 Unknown Rx Albuterol Sulfate [Ventolin HFA] 2 puff IH Q4H PRN #1 [id number] 03/28/16 Unknown Rx Ciprofloxacin HCl [Ciprofloxacin 500 mg PO Q12HR #30 tab 03/28/16 Unknown Rx TAB] Citalopram [celeXA] 10 mg PO QDAY #30 tablet 03/28/16 Unknown Rx Nicotine [Habitrol] 14 mg TD QDAY #30 patch 03/28/16 Unknown Rx Sitagliptin Phos/Metformin HCl 1 tab PO QDAY #30 tbmp.24hr 03/28/16 Unknown Rx [Janumet XR 100-1,000 mg] oxyCODONE /ACETAMINOPHEN [Percocet 1 tab PO Q6H PRN #60 tablet 03/28/16 Unknown Rx 5/325 mg] Active Medications: Generic Name Dose Route Start Last Admin Trade Name Freq PRN Reason Stop Dose Admin Acetaminophen 650 mg 10/11/18 04:04 10/21/18 22:21 Tylenol PO 650 mg Q4H PRN Administration Pain MILD(1-3)/Fever >100.5/HOLLINS Albuterol 2.5 mg 10/19/18 00:54 Proventil IH Q4HRT PRN Shortness Of Breath Albuterol/Ipratropium 1 ampul 10/19/18 08:00 11/01/18 13:47 Duoneb *Not For Prn Use* IH 1 ampul TIDRT ISAAC Administration Alprazolam 1 mg 10/20/18 13:06 11/01/18 12:43 Xanax PO 1 mg TID PRN Administration Anxiety Apixaban 10 mg 11/01/18 16:00 Eliquis PO 11/07/18 22:01 Q12HR ISAAC Protocol Apixaban 5 mg 11/08/18 10:00 Eliquis PO Q12HR ISAAC Protocol Aspirin 81 mg 11/01/18 16:00 Halfprin Ec PO QDAY ISAAC Citalopram Hydrobromide 10 mg 10/21/18 10:00 11/01/18 09:08 Celexa PO 10 mg QDAY ISAAC Administration Dextrose 0 ml 10/11/18 03:57 10/11/18 10:18 D50w (25gm) Syringe IV 10 ml PRN PRN Administration Hypoglycemia Famotidine 20 mg 10/15/18 10:00 11/01/18 07:13 Pepcid PO Not Given BID [facility] Lactated Ringer's 1,000 mls @ 75 mls/hr 10/31/18 06:00 10/31/18 15:29 Lactated Ringers IV 75 mls/hr DIRECT ISAAC Administration Insulin Human Regular 0 units 10/17/18 11:30 11/01/18 11:30 Humulin R SUB-Q Not Given ACHS [facility] Protocol Metoprolol Tartrate 25 mg 10/18/18 22:00 11/01/18 09:05 Lopressor PO 25 mg BID ISAAC Administration Metoprolol Tartrate 2.5 mg 10/18/18 18:51 10/18/18 22:19 Lopressor IV 2.5 mg Q6H PRN Administration Tachyarrhythmias Naloxone HCl 0.1 mg 10/29/18 16:03 Narcan 0.4 Mg/1 Ml IV Q2MIN PRN Res Rate </= 8 or 02 SAT < 92% Ondansetron HCl 4 mg 10/11/18 04:04 Zofran IV Q8H PRN Nausea And Vomiting Oxycodone HCl 10 mg 11/01/18 22:00 Oxycontin PO Q12HR [facility] Oxycodone/Acetaminophen 1 tab 10/18/18 13:45 11/01/18 12:41 Percocet 5/325 PO 1 tab Q6H PRN Administration Pain, Moderate (4-6) Quetiapine Fumarate 200 mg 10/14/18 22:00 10/31/18 21:29 Seroquel PO 200 mg QHS ISAAC Administration
[2018-11-01] MEDS: ELIQUIS PO SCH (17:40)
[2018-11-01] MEDS: HALFPRIN EC PO SCH (17:41)
[2018-11-01] MEDS: OxyCONTIN PO SCH (21:54)
[2018-11-02 05:20] LABS: Hemoglobin 9.5 gm/dl (11.8-15.2); Mean Corpuscular HGB Conc 34 % (32-34); Mean Corpuscular Volume 93 fl (84-94); Platelet Count 274 K/mm3 (140-440); Red Blood Count 3.02 M/mm3 (3.65-5.03); Red Cell Distribution Width 15.2 % (13.2-15.2)
[2018-11-02 05:47] LABS: Alanine Aminotransferase 20 units/L (7-56); Albumin 2.2 g/dL (3.9-5); BUN/Creatinine Ratio 20; Blood Urea Nitrogen 10 mg/dL (9-20); Calcium 8.2 mg/dL (8.4-10.2); Hemolysis Index 10
[2018-11-02] MEDS: DUONEB *Not for PRN Use IH SCH ×2 (07:34→13:33)
--- NOTE | 2018-11-02 08:11 | Progress Note ---
Assessment and Plan Assessment and plan: Patient is a 58 yo man with a history of COPD, DM, hypertension, asthma, peripheral neuropathy, chronic hepatitis C virus, panic attack. anxiety disorder, polysubstance abuse including alcohol, cocaine and heroin who presented to [facility] ED on 10/11/18 with AMS. He was diagnosis with septic shock due to pneumonia, placed on abx and vasopressors. He was also diagnosis with DKA/respiratory failure/Status epilepticus/ARF. 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 followed by revascularization right leg on 10/31/18: Vascular following, input noted, started Eliquis -Acute/subacute right CVA, Initial CT head, no acute finding, 10/13/18 found to have left-sided weakness, MRI brain showed numerous acute/subacute multilobar infarcts involving the cerebrum and cerebellum including Hemorrhagic transformation of the right frontal and biparietal lobes, was Not a candidate for tPA, monitor off aspirin per teleneurology, QUIQUE ; no thrombus or shunt, Speech recommended pureed diet -Severe sepsis with shock; present on admission Probably due to LLL aspiration pneumonia, completed total 7 days of antibiotics, off vasopressors -Paroxysmal atrial fibrillation. on Eliquis Cardiology is following -LLL pneumonia: completed treatment -Acute respiratory failure with hypoxia and hypercapnia: Requiring intubation, extubated, nebs , supplemental O2 as needed -DKA, resolved: cont SSI for now, diabetic diet -Acute toxic/metabolic encephalopathy, improved -Seizure disorder; seizure precautions, no new episodes of seizure, Ativan when necessary, neurology did not recommend antiepileptic medications -Elevated troponin/NSTEMI type 2, Echocardiogram for further evaluation - Ef 25- 30%, Cardiology consulted, medical Mx for now, -Acute systolic CHF, Ef 25-30%, anti-failure medications, Cardiology is following -ARF, due to ATN and vasomotor nephropathy, poa, resolved -Hyperkalemia, resolved -Abnormal LFT, Probably due to sepsis, resolving and chronic hepatitis C virus infection, Abdominal US showed no sign of cirrhosis: monitor cmp -Anemia, appears acute on chronic AOCD: monitor closely on iv heparin drip -Severe protein calorie malnutrition; nutrition supplements, Dietitian consulted -DVT prophylaxis with Eliquis and GI prophylaxis with famotidine -Tobacco abuse. Patient with a long smoking history of one pack per day or more since age 9. Patient was counseled on smoking cessation. Disposition: continue inpatient care. Vascular procedure on right leg 10/31/18 and now the right foot is warm. Possible rehab vs Subacute rehab placement==>Physical therapy recommended Subacute Rehab transfer out of ICU on 11/01/18 to [facility] restraints renewed History Interval history: Patient was seen and examined. Follow-up on current diagnosis of PVD. No overnight events reported to me. Patient denies any chest pain, shortness breath, nausea/vomiting or severe headaches. Imaging, nursing note, chart, labs and old chart reviewed. Discussed with patient. Hospitalist Physical - Physical exam Narrative exam: Gen: severely cachectic, disable, NAD, Awake, Alert, Orientated x 2 HEENT: NCAT, EOMI, PERRL, OP Clear Neck: supple, no adenopathy, no thyromegaly, no JVD CVS/Heart: RRR, normal S1S2, pulses present weak, right foot cool to touch (Dr. Murray at bedside with me also) Chest/Lungs: diminished bs bilateral, Symmetrical chest expansion, good air entry bilaterally GI/Abdomen: soft, NTND, good bowel sounds, no guarding or rebound /Bladder: no suprapubic tenderness, no CVA or paraspinal tenderness Extermity/Skin: left bka, right toes and foot dry gangrene MSK: FROM x 4 Neuro: CN 2-12 grossly intact, no new focal deficits Psych: calm - Constitutional Vitals: Temp Pulse Resp BP Pulse Ox 97.3 F L 76 18 108/68 98 11/02/18 04:00 11/02/18 07:44 11/02/18 07:44 11/02/18 05:00 11/02/18 07:34 General appearance: Present: no acute distress Results - Labs CBC & Chem 7: 11/02/18 04:56 11/02/18 04:56 Labs: Laboratory Last Values WBC 10.9 K/mm3 (4.5-11.0) 11/02/18 04:56 RBC 3.02 M/mm3 (3.65-5.03) L 11/02/18 04:56 Hgb 9.5 gm/dl (11.8-15.2) L 11/02/18 04:56 Hct 28.0 % (35.5-45.6) L 11/02/18 04:56 MCV 93 fl (84-94) 11/02/18 04:56 MCH 31 pg (28-32) 11/02/18 04:56 MCHC 34 % (32-34) 11/02/18 04:56 RDW 15.2 % (13.2-15.2) 11/02/18 04:56 Plt Count 274 K/mm3 (140-440) 11/02/18 04:56 Lymph % (Auto) 11.3 % (13.4-35.0) L 10/24/18 05:56 [place] % (Auto) 7.1 % (0.0-7.3) 10/24/18 05:56 Eos % (Auto) 1.0 % (0.0-4.3) 10/24/18 05:56 Baso % (Auto) 0.4 % (0.0-1.8) 10/24/18 05:56 Lymph # 1.3 K/mm3 (1.2-5.4) 10/24/18 05:56 [place] # 0.8 K/mm3 (0.0-0.8) 10/24/18 05:56 Eos # 0.1 K/mm3 (0.0-0.4) 10/24/18 05:56 Baso # 0.0 K/mm3 (0.0-0.1) 10/24/18 05:56 Add Manual Diff Complete 10/30/18 04:22 Total Counted 200 10/30/18 04:22 Seg Neutrophils % [place]us[place] Hand 10/30/18 04:22 Seg Neuts % (Manual) 69.0 % (40.0-70.0) 10/30/18 04:22 26.0 % 10/30/18 04:22 1.5 % (13.4-35.0) L 10/30/18 04:22 Reactive Lymphs % (Man) 0 % 10/30/18 04:22 2.0 % (0.0-7.3) 10/30/18 04:22 0 % (0.0-4.3) 10/30/18 04:22 0 % (0.0-1.8) 10/30/18 04:22 1.0 % 10/30/18 04:22 0.5 % 10/30/18 04:22 0 % 10/30/18 04:22 0 % 10/30/18 04:22 Nucleated RBC % Not Reportable 10/30/18 04:22 Seg Neutrophils # 9.4 K/mm3 (1.8-7.7) H 10/24/18 05:56 Seg Neutrophils # Man 18.6 K/mm3 (1.8-7.7) H 10/30/18 04:22 Band Neutrophils # 7.0 K/mm3 10/30/18 04:22 0.4 K/mm3 (1.2-5.4) L 10/30/18 04:22 Abs React Lymphs (Man) 0.0 K/mm3 10/30/18 04:22 0.5 K/mm3 (0.0-0.8) 10/30/18 04:22 0.0 K/mm3 (0.0-0.4) 10/30/18 04:22 0.0 K/mm3 (0.0-0.1) 10/30/18 04:22 0.3 K/mm3 10/30/18 04:22 0.1 K/mm3 10/30/18 04:22 0.0 K/mm3 10/30/18 04:22 Blast Cells # 0.0 K/mm3 10/30/18 04:22 Pathologist Review 10/11/18 00:16 WBC Morphology Not Reportable 10/30/18 04:22 WBC Morphology TNR 10/30/18 04:22 Hypersegmented Neuts Not Reportable 10/30/18 04:22 Hyposegmented Neuts Not Reportable 10/30/18 04:22 Hypogranular Neuts Not Reportable 10/30/18 04:22 Not Reportable 10/30/18 04:22 Not Reportable 10/30/18 04:22 Not Reportable 10/30/18 04:22 Not Reportable 10/30/18 04:22 Not Reportable 10/30/18 04:22 Not Reportable 10/30/18 04:22 Consistent w auto 10/30/18 04:22 Not Reportable 10/30/18 04:22 Plt Clumps, EDTA Not Reportable 10/30/18 04:22 Not Reportable 10/30/18 04:22 Not Reportable 10/30/18 04:22 Not Reportable 10/30/18 04:22 Plt Morphology Comment Not Reportable 10/30/18 04:22 RBC Morphology Not Reportable 10/30/18 04:22 Dimorphic RBCs Not Reportable 10/30/18 04:22 Not Reportable 10/30/18 04:22 Not Reportable 10/30/18 04:22 Not Reportable 10/30/18 04:22 Not Reportable 10/30/18 04:22 Not Reportable 10/30/18 04:22 Not Reportable 10/30/18 04:22 Not Reportable 10/30/18 04:22 Not Reportable 10/30/18 04:22 Not Reportable 10/30/18 04:22 Not Reportable 10/30/18 04:22 Not Reportable 10/30/18 04:22 Not Reportable 10/30/18 04:22 Not Reportable 10/30/18 04:22 Not Reportable 10/30/18 04:22 Not Reportable 10/30/18 04:22 Not Reportable 10/30/18 04:22 Not Reportable 10/30/18 04:22 Not Reportable 10/30/18 04:22 Not Reportable 10/30/18 04:22 Acanthocytes (Spur) Not Reportable 10/30/18 04:22 Rouleaux Not Reportable 10/30/18 04:22 Not Reportable 10/30/18 04:22 Not Reportable 10/30/18 04:22 Not Reportable 10/30/18 04:22 Not Reportable 10/30/18 04:22 Hem Pathologist Commnt No 10/30/18 04:22 PT 13.9 Sec. (12.2-14.9) 10/29/18 07:11 INR 1.01 (0.87-1.13) 10/29/18 07:11 APTT 30.3 Sec. (24.2-36.6) 10/27/18 13:33 Heparin Anti-Xa Level 1.05 U.I./ml (0.3-0.7) H 11/01/18 11:38 Heparin Anti-Xa, Unfract Negative (Negative) 10/15/18 12:00 POC ABG pH 7.393 (7.35-7.45) 10/16/18 12:51 POC ABG pCO2 48.9 (35-45) H 10/16/18 12:51 POC ABG pO2 92 (80-105) 10/16/18 12:51 POC ABG HCO3 29.8 (22-26 mml/L) 10/16/18 12:51 POC ABG Total CO2 31 (23-27mmol/L) 10/16/18 12:51 POC ABG O2 Sat 97 10/16/18 12:51 POC ABG Base Excess 5 ((-2) - (+3)mmol/L) 10/16/18 12:51 35 % 10/16/18 12:51 Sodium 138 mmol/L (137-145) 11/02/18 04:56 Potassium 3.7 mmol/L (3.6-5.0) 11/02/18 04:56 Chloride 103.2 mmol/L (98-107) 11/02/18 04:56 Carbon Dioxide 26 mmol/L (22-30) 11/02/18 04:56 13 mmol/L 11/02/18 04:56 BUN 10 mg/dL (9-20) 11/02/18 04:56 0.5 mg/dL (0.8-1.5) L 11/02/18 04:56 Estimated GFR > 60 ml/min 11/02/18 04:56 20 % 11/02/18 04:56 Glucose 141 mg/dL (75-100) H 11/02/18 04:56 POC Glucose 213 (70-105) H 11/01/18 21:23 Lactic Acid 2.70 mmol/L (0.7-2.0) H* 10/11/18 12:30 Calcium 8.2 mg/dL (8.4-10.2) L 11/02/18 04:56 Phosphorus 2.80 mg/dL (2.5-4.5) 10/21/18 04:59 Magnesium 1.70 mg/dL (1.7-2.3) 11/01/18 05:52 0.40 mg/dL (0.1-1.2) 11/02/18 04:56 AST 43 units/L (5-40) H 11/02/18 04:56 ALT 20 units/L (7-56) 11/02/18 04:56 46 units/L (35-129) 11/02/18 04:56 3647 units/L (55-170) H 10/12/18 04:04 CK-MB (CK-2) 48.3 ng/mL (0.0-4.0) H 10/12/18 04:04 CK-MB (CK-2) Rel Index 1.3 (0-4) 10/12/18 04:04 0.816 ng/mL (0.00-0.029) H* 10/13/18 16:15 6.1 g/dL (6.3-8.2) L 11/02/18 04:56 2.2 g/dL (3.9-5) L 11/02/18 04:56 0.6 % 11/02/18 04:56 Triglycerides 87 mg/dL (2-149) 10/11/18 00:16 Cholesterol 73 mg/dL (50-199) 10/11/18 00:16 51 mg/dL (50-130) 10/11/18 00:16 19 mg/dL (40-59) L 10/11/18 00:16 3.84 % 10/11/18 00:16 See scanned report 10/15/18 12:00 Yellow (Yellow) 10/11/18 01:42 Cloudy (Clear) 10/11/18 01:42 6.0 (5.0-7.0) 10/11/18 01:42 Ur Specific [place] 1.011 (1.003-1.030) 10/11/18 01:42 100 mg/dl mg/dL (Negative) 10/11/18 01:42 >=500 mg/dL (Negative) 10/11/18 01:42 Neg mg/dL (Negative) 10/11/18 01:42 Mod (Negative) 10/11/18 01:42 Neg (Negative) 10/11/18 01:42 Neg (Negative) 10/11/18 01:42 4.0 mg/dL (<2.0) 10/11/18 01:42 Ur Leukocyte Esterase Neg (Negative) 10/11/18 01:42 5.0 /HPF (0.0-6.0) 10/11/18 01:42 2.0 /HPF (0.0-6.0) 10/11/18 01:42 U Epithel Cells (Auto) < 1.0 /HPF (0-13.0) 10/11/18 01:42 Amorphous Crystals 1+ 10/11/18 01:42 Few /HPF 10/11/18 01:42 2+ /HPF (PROCESS CONTROL PROGRAMMER) 10/11/18 01:42 Vancomycin Trough 8.3 ug/mL (5.0-20.0) 10/13/18 05:40 Salicylates < 0.3 mg/dL (2.8-20.0) L 10/11/18 00:16 Presumptive positive 10/11/18 01:42 Presumptive negative 10/11/18 01:42 Acetaminophen < 5.0 ug/mL (10.0-30.0) L 10/11/18 00:16 Ur Barbiturates Screen Presumptive negative 10/11/18 01:42 Ur Phencyclidine Scrn Presumptive negative 10/11/18 01:42 Ur Amphetamines Screen Presumptive positive 10/11/18 01:42 U Benzodiazepines Scrn Presumptive positive 10/11/18 01:42 Presumptive negative 10/11/18 01:42 U Marijuana (THC) Screen Presumptive negative 10/11/18 01:42 Disclamer 10/11/18 01:42 Plasma/Serum Alcohol < 0.01 % (0-0.07) 10/11/18 00:16 Heparin-induced Plt Ab Negative (Negative) 10/15/18 12:00 UF Heparin High Dose 0 % Release 10/15/18 12:00 AURELIO UFH Low Dose 0.1 0 % Release 10/15/18 12:00 AURELIO UFH Low Dose 0.5 0 % Release 10/15/18 12:00 Blood Type O POSITIVE 10/31/18 08:07 Antibody Screen Positive 10/31/18 08:07 Antibody Identification Negative 10/31/18 08:07 Direct Antiglob Test Negative 10/31/18 08:07 SHASHANK, Poly Interpret Negative 10/31/18 08:07 Crossmatch See Detail 10/31/18 08:07 Active Medications - Current Medications Current Medications: Generic Name Dose Route Start Last Admin Trade Name Freq PRN Reason Stop Dose Admin Acetaminophen 650 mg 10/11/18 04:04 10/21/18 22:21 Tylenol PO 650 mg Q4H PRN Administration Pain MILD(1-3)/Fever >100.5/HOLLINS Albuterol 2.5 mg 10/19/18 00:54 Proventil IH Q4HRT PRN Shortness Of Breath Albuterol/Ipratropium 1 ampul 10/19/18 08:00 11/02/18 07:34 Duoneb *Not For Prn Use* IH 1 ampul TIDRT ISAAC Administration Alprazolam 1 mg 10/20/18 13:06 11/01/18 20:48 Xanax PO 1 mg TID PRN Administration Anxiety Apixaban 10 mg 11/01/18 16:00 11/01/18 17:40 Eliquis PO 11/08/18 10:01 10 mg Q12HR ISAAC Administration Protocol Apixaban 5 mg 11/08/18 22:00 Eliquis PO Q12HR ISAAC Protocol Aspirin 81 mg 11/01/18 16:00 11/01/18 17:41 Halfprin Ec PO 81 mg QDAY ISAAC Administration Citalopram Hydrobromide 10 mg 10/21/18 10:00 11/01/18 09:08 Celexa PO 10 mg QDAY ISAAC Administration Dextrose 0 ml 10/11/18 03:57 10/11/18 10:18 D50w (25gm) Syringe IV 10 ml PRN PRN Administration Hypoglycemia Famotidine 20 mg 10/15/18 10:00 11/01/18 21:54 Pepcid PO 20 mg BID ISAAC Administration Insulin Human Regular 0 units 10/17/18 11:30 11/01/18 21:55 Humulin R SUB-Q 4 units ACHS ISAAC Administration Protocol Metoprolol Tartrate 25 mg 10/18/18 22:00 11/01/18 21:54 Lopressor PO 25 mg BID ISAAC Administration Metoprolol Tartrate 2.5 mg 10/18/18 18:51 10/18/18 22:19 Lopressor IV 2.5 mg Q6H PRN Administration Tachyarrhythmias Naloxone HCl 0.1 mg 10/29/18 16:03 Narcan 0.4 Mg/1 Ml IV Q2MIN PRN Res Rate </= 8 or 02 SAT < 92% Ondansetron HCl 4 mg 10/11/18 04:04 11/01/18 22:12 Zofran IV 4 mg Q8H PRN Administration Nausea And Vomiting Oxycodone HCl 10 mg 11/01/18 22:00 11/01/18 21:54 Oxycontin PO 10 mg Q12HR ISAAC Administration Oxycodone/Acetaminophen 1 tab 10/18/18 13:45 11/01/18 20:48 Percocet 5/325 PO 1 tab Q6H PRN Administration Pain, Moderate (4-6) Quetiapine Fumarate 200 mg 10/14/18 22:00 11/01/18 21:54 Seroquel PO 200 mg QHS ISAAC Administration Nutrition/Malnutrition Assess - Dietary Evaluation Nutrition/Malnutrition Findings: Nutrition Notes Start: 10/11/18 12:39 Freq: Status: Active Protocol: Document 10/31/18 16:05 RM (Rec: 10/31/18 16:12 RM [id number]) Nutrition Notes Initial or Follow up Reassessment Current Diagnosis Acute Kidney Injury,COPD, Diabetes,Sepsis,Hypertension, Stroke Other Pertinent Diagnosis Sacral PU, R & L leg skin tear , Hep C, cellulitis, Opiate overdose Current Diet Mech soft w/chopped meats Labs/Tests Reviewed Pertinent Medications Reviewed Height 6 ft 3 in Weight 64.5 kg [place] Body Weight (kg) 89.09 BMI 17.7 Subjective/Other Information Pt moved to critical care. Pt NPO for thrombectomy earlier today. Mech soft diet ordered later today. Pt stated that prior to NPO status he was eat all of his meals and drinking his Glucerna. Percent of energy/protein needs met: 100%/100% Burn Absent Trauma Absent #2 Nutrition Diagnosis Inadequate oral intake As Evidenced by Signs and Symptoms pt meeting 100% of calorie and protein needs Diagnosis Progress(for reassessment Resolved documentation) #1 Nutrition Diagnosis Malnutrition Diagnosis Progress(for reassessment Continues documentation) Is patient on ventilator? No Is Patient Ambulatory and/or Out of Bed No REE-([facility]-confined to bed) 1877.352 Kcal/Kg value to use for calculation 36 Approximate Energy Requirements Using 2322 kcal/Kg Calculation Used for Recommendations Kcal/kg Additional Notes Protein Needs: 77-129g (1.2-2g /kg) Fluid Needs: 1 ml/kcal Nutrition Intervention Change Diet Order: Continue current Add Supplement/Snack (indicate name/kcal Glucerna BID + [place] BID /protein ) Provides kCal: 630 Provides Protein (gm) 25 Goal #1 Continue to meet at least 75% of calorie and protein needs via PO and ONS intakes Goal #2 Wt gain/maintenance Anticipated Discharge Needs: [facility] soft w/chopped meat diet Follow-Up By: 11/06/18 Additional Comments Follow for PO and ONS intakes
[2018-11-02] MEDS: HumuLIN R SUB-Q SCH ×4 (10:19→23:25)
[2018-11-02] MEDS: ELIQUIS PO SCH ×2 (10:21→21:47)
[2018-11-02] MEDS: HALFPRIN EC PO SCH (10:21)
--- NOTE | 2018-11-02 10:22 | Progress Note ---
Assessment and Plan Patient doing well from a vascular standpoint. He may be discharged to rehabilitation facility. The patient may benefit from evaluation and possible treatment for his Dilaudid addiction. Subjective Date of service: 11/02/18 Principal diagnosis: Ac hypercapnic hypoxemic Resp failure; Drug OD; AE-COPD; NINOSKA; Seizures Interval history: Patient with a history of peripheral vascular disease status post code secondary Dilaudid overdose. Patient has undergone a left BKA and right revascularization procedure. He has a palpable right dorsalis pedis pulse. His leg is warm and well-perfused. Is able to dorsiflex and plantarflex his foot on the right. Left BKA stump is warm. Objective - Constitutional Vitals: Vital Signs - 12hr 11/01/18 11/02/18 11/02/18 23:34 00:00 00:21 Temperature 97.6 F Pulse Rate 123 H Pulse Rate [ Anterior Bilateral Throughout] Pulse Rate [ 87 From Monitor] Respiratory 21 Rate Respiratory Rate [Anterior Bilateral Throughout] Blood Pressure [Right] O2 Sat by Pulse 99 Oximetry 11/02/18 11/02/18 11/02/18 01:30 03:10 04:00 Temperature 97.8 F 97.3 F L Pulse Rate 93 H 93 H Pulse Rate [ Anterior Bilateral Throughout] Pulse Rate [ 81 From Monitor] Respiratory 21 20 Rate Respiratory Rate [Anterior Bilateral Throughout] Blood Pressure 114/70 [Right] O2 Sat by Pulse 99 99 Oximetry 11/02/18 11/02/18 11/02/18 05:00 07:34 07:44 Temperature Pulse Rate 81 Pulse Rate [ 78 76 Anterior Bilateral Throughout] Pulse Rate [ From Monitor] Respiratory 17 Rate Respiratory 18 18 Rate [Anterior Bilateral Throughout] Blood Pressure 108/68 [Right] O2 Sat by Pulse 98 98 Oximetry General appearance: Present: no acute distress - EENT Eyes: EOM intact ENT: hearing intact - Neck Neck: supple, normal ROM - Respiratory Respiratory effort: normal - Breasts Breasts: deferred - Cardiovascular Rhythm: regular Extremities: abnormal - Gastrointestinal General gastrointestinal: Present: deferred Rectal Exam: deferred - Genitourinary Male genitourinary: deferred - Psychiatric Psychiatric: cooperative - Labs CBC & Chem 7: 11/02/18 04:56 11/02/18 04:56 Labs: Abnormal lab results 11/01/18 11/01/18 11/01/18 Range/Units 08:17 10:57 11:38 RBC (3.65-5.03) M/mm3 Hgb (11.8-15.2) gm/dl Hct (35.5-45.6) % Heparin Anti-Xa Level 1.05 H (0.3-0.7) U.I./ml Creatinine (0.8-1.5) mg/dL Glucose (75-100) mg/dL POC Glucose 158 H 133 H (70-105) Calcium (8.4-10.2) mg/dL AST (5-40) units/L Total Protein (6.3-8.2) g/dL Albumin (3.9-5) g/dL 11/01/18 11/01/18 11/02/18 Range/Units 17:08 21:23 04:56 RBC 3.02 L (3.65-5.03) M/mm3 Hgb 9.5 L (11.8-15.2) gm/dl Hct 28.0 L (35.5-45.6) % Heparin Anti-Xa Level (0.3-0.7) U.I./ml Creatinine (0.8-1.5) mg/dL Glucose (75-100) mg/dL POC Glucose 156 H 213 H (70-105) Calcium (8.4-10.2) mg/dL AST (5-40) units/L Total Protein (6.3-8.2) g/dL Albumin (3.9-5) g/dL 11/02/18 Range/Units 04:56 RBC (3.65-5.03) M/mm3 Hgb (11.8-15.2) gm/dl Hct (35.5-45.6) % Heparin Anti-Xa Level (0.3-0.7) U.I./ml Creatinine 0.5 L (0.8-1.5) mg/dL Glucose 141 H (75-100) mg/dL POC Glucose (70-105) Calcium 8.2 L (8.4-10.2) mg/dL AST 43 H (5-40) units/L Total Protein 6.1 L (6.3-8.2) g/dL Albumin 2.2 L (3.9-5) g/dL Medications & Allergies - Medications Allergies/Adverse Reactions: Allergies No Known Allergies Allergy (Verified 10/31/14 11:20) Home Medications: Home Medications Medication Instructions Recorded Confirmed Last Taken Type Gabapentin [Neurontin] 90 mg PO Q8HR 04/22/15 11/01/18 04/21/15 History ALPRAZolam [Xanax TAB] 1 mg PO TID PRN #30 tablet 03/28/16 11/01/18 Unknown Rx Albuterol Sulfate [Ventolin HFA] 2 puff IH Q4H PRN #1 hfa.aer.ad 03/28/16 11/01/18 Unknown Rx Ciprofloxacin HCl [Ciprofloxacin 500 mg PO Q12HR #30 tab 03/28/16 11/01/18 Unknown Rx TAB] Citalopram [celeXA] 10 mg PO QDAY #30 tablet 03/28/16 11/01/18 Unknown Rx Nicotine [Habitrol] 14 mg TD QDAY #30 patch 03/28/16 11/01/18 Unknown Rx Sitagliptin Phos/Metformin HCl 1 tab PO QDAY #30 tbmp.24hr 03/28/16 11/01/18 Unknown Rx [Janumet XR 100-1,000 mg] oxyCODONE /ACETAMINOPHEN [Percocet 1 tab PO Q6H PRN #60 tablet 03/28/16 11/01/18 Unknown Rx 5/325 mg] Active Medications: Generic Name Dose Route Start Last Admin Trade Name Freq PRN Reason Stop Dose Admin Acetaminophen 650 mg 10/11/18 04:04 10/21/18 22:21 Tylenol PO 650 mg Q4H PRN Administration Pain MILD(1-3)/Fever >100.5/HOLLINS Albuterol 2.5 mg 10/19/18 00:54 Proventil IH Q4HRT PRN Shortness Of Breath Albuterol/Ipratropium 1 ampul 10/19/18 08:00 11/02/18 07:34 Duoneb *Not For Prn Use* IH 1 ampul TIDRT ISAAC Administration Alprazolam 1 mg 10/20/18 13:06 11/01/18 20:48 Xanax PO 1 mg TID PRN Administration Anxiety Apixaban 10 mg 11/01/18 16:00 11/01/18 17:40 Eliquis PO 11/08/18 10:01 10 mg Q12HR ISAAC Administration Protocol Apixaban 5 mg 11/08/18 22:00 Eliquis PO Q12HR ISAAC Protocol Aspirin 81 mg 11/01/18 16:00 11/01/18 17:41 Halfprin Ec PO 81 mg QDAY ISAAC Administration Citalopram Hydrobromide 10 mg 10/21/18 10:00 11/01/18 09:08 Celexa PO 10 mg QDAY ISAAC Administration Dextrose 0 ml 10/11/18 03:57 10/11/18 10:18 D50w (25gm) Syringe IV 10 ml PRN PRN Administration Hypoglycemia Famotidine 20 mg 10/15/18 10:00 11/01/18 21:54 Pepcid PO 20 mg BID ISAAC Administration Insulin Human Regular 0 units 10/17/18 11:30 11/01/18 21:55 Humulin R SUB-Q 4 units ACHS ISAAC Administration Protocol Metoprolol Tartrate 25 mg 10/18/18 22:00 11/01/18 21:54 Lopressor PO 25 mg BID ISAAC Administration Metoprolol Tartrate 2.5 mg 10/18/18 18:51 10/18/18 22:19 Lopressor IV 2.5 mg Q6H PRN Administration Tachyarrhythmias Naloxone HCl 0.1 mg 10/29/18 16:03 Narcan 0.4 Mg/1 Ml IV Q2MIN PRN Res Rate </= 8 or 02 SAT < 92% Ondansetron HCl 4 mg 10/11/18 04:04 11/01/18 22:12 Zofran IV 4 mg Q8H PRN Administration Nausea And Vomiting Oxycodone HCl 10 mg 11/01/18 22:00 11/01/18 21:54 Oxycontin PO 10 mg Q12HR ISAAC Administration Oxycodone/Acetaminophen 1 tab 10/18/18 13:45 11/01/18 20:48 Percocet 5/325 PO 1 tab Q6H PRN Administration Pain, Moderate (4-6) Quetiapine Fumarate 200 mg 10/14/18 22:00 11/01/18 21:54 Seroquel PO 200 mg QHS ISAAC Administration
[2018-11-02] MEDS: OxyCONTIN PO SCH ×2 (10:23→21:47)
[2018-11-02] MEDS: PEPCID PO SCH ×2 (10:23→21:48)
--- NOTE | 2018-11-02 12:10 | Progress Note ---
Assessment and Plan s/p left BKA, right open thrombectomy and aortic stenting and bilateral common iliac artery stenting but right EIA occluded requiring another open thrombectomy and stenting of the right iliac system. 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 Witnessed seizure en route. Acute kidney injury. Leukocytosis. Hypercapnia. Hyperkalemia. Metabolic acidosis. Lactic acidosis. Non-ST elevation myocardial infarction. Elevated serum transaminases. Pain management Therapeutic anticoagulation PT/OT/Mobility Falls precautions Optimize nutrition Discharge planning All other care as documented below - continue bronchodilators with pulmonary hygiene per RT - continue to wean supplemental oxygen to keep O2 sats 88-90% - PRN ABGs/CXR - Continue cardioprotective measures -Continue with secondary stroke prophylaxis - Replete electrolytes as indicated - Follow cultures and adjust antibiotics for ID/CALEB (Deescalate as indicated) - Avoid nephrotoxic agents, adjust all medications for CrCL - Aspiration precautions - Accuchecks with glycemic control. Target glucose of 140-180 mg/dL - Influenza and pneumonia vaccination per protocol Subjective Date of service: 11/02/18 Principal diagnosis: Ac hypercapnic hypoxemic Resp failure; Drug OD; AE-COPD; NINOSKA; Seizures Interval history: Patient is seen today for: Acute hypoxemic respiratory failure,s/p mechanical ventilator support; Drug overdose; Chronic obstructive pulmonary disease ; s/p left BKA for critical limb ischemia Seen and examined at bedside; 24-hour events reviewed; nursing and respiratory care staff consulted; no adverse overnight events reported to me; Vitals, labs,medications, chart reviewed. On going complaints of left limb pain. Denies any chest pain, no shortness of breath, no fevers or chills Lying peacefully in bed Objective Vital Signs - 12hr 11/02/18 11/02/18 11/02/18 00:21 01:30 03:10 Temperature 97.6 F 97.8 F Pulse Rate 93 H 93 H Pulse Rate [ Anterior Bilateral Throughout] Pulse Rate [ From Monitor] Respiratory 21 Rate Respiratory Rate [Anterior Bilateral Throughout] Blood Pressure 114/70 [Right] O2 Sat by Pulse 99 Oximetry 11/02/18 11/02/18 11/02/18 04:00 05:00 07:34 Temperature 97.3 F L Pulse Rate 81 Pulse Rate [ 78 Anterior Bilateral Throughout] Pulse Rate [ 81 From Monitor] Respiratory 20 17 Rate Respiratory 18 Rate [Anterior Bilateral Throughout] Blood Pressure 108/68 [Right] O2 Sat by Pulse 99 98 98 Oximetry 11/02/18 11/02/18 07:44 11:46 Temperature 97.5 F L Pulse Rate Pulse Rate [ 76 Anterior Bilateral Throughout] Pulse Rate [ From Monitor] Respiratory Rate Respiratory 18 Rate [Anterior Bilateral Throughout] Blood Pressure [Right] O2 Sat by Pulse Oximetry Constitutional: no acute distress, other (middle aged but chronically ill looking CM; Atraumatic) Eyes: non-icteric ENT: oropharynx moist Neck: supple, no lymphadenopathy, no JVD Effort: normal Ascultation: Bilateral: diminished breath sounds, rhonchi Percussion: Bilateral: not dull Cardiovascular: irregular rhythm, other (No R/M) Gastrointestinal: normoactive bowel sounds, soft, non-tender, non-distended Integumentary: other (poor turgor) Extremities: no edema, other (s/p Left KBA, ischemic toes on the right with poor pedal pulses) Neurologic: normal mental status, non-focal exam, pupils equal and round Psychiatric: mood appropriate, affect normal CBC and BMP: 11/03/18 04:38 11/03/18 04:38 ABG, PT/INR, D-dimer: ABG POC ABG pH 7.393 (7.35-7.45) 10/16/18 12:51 POC ABG pCO2 48.9 (35-45) H 10/16/18 12:51 POC ABG pO2 92 (80-105) 10/16/18 12:51 POC ABG HCO3 29.8 (22-26 mml/L) 10/16/18 12:51 POC ABG Total CO2 31 (23-27mmol/L) 10/16/18 12:51 POC ABG O2 Sat 97 10/16/18 12:51 PT/INR, D-dimer PT 13.9 Sec. (12.2-14.9) 10/29/18 07:11 INR 1.01 (0.87-1.13) 10/29/18 07:11 Abnormal lab findings: Abnormal Labs 10/11/18 10/11/18 10/11/18 00:16 00:16 00:16 WBC 20.1 H RBC Hgb Hct MCV 98 H MCHC RDW 15.4 H Plt Count Lymph % (Auto) [place] % (Auto) [place] # Seg Neutrophils % Seg Neuts % (Manual) Lymphocytes % (Manual) 5.0 L Monocytes % (Manual) 25.0 H Seg Neutrophils # Seg Neutrophils # Man 9.2 H Lymphocytes # (Manual) 1.0 L Monocytes # (Manual) 5.0 H APTT Heparin Anti-Xa Level POC ABG pH POC ABG pCO2 POC ABG pO2 Sodium Potassium 5.8 H Chloride Carbon Dioxide 17 L BUN Creatinine 2.2 H Glucose 348 H POC Glucose Lactic Acid 13.70 H* Calcium 7.7 L Phosphorus Total Bilirubin 1.50 H AST 179 H ALT 110 H Total Creatine Kinase 324 H CK-MB (CK-2) Troponin T 0.257 H* Total Protein 5.9 L Albumin 2.9 L HDL Cholesterol 19 L Salicylates Acetaminophen Crossmatch 10/11/18 10/11/18 10/11/18 00:16 00:16 01:21 WBC RBC Hgb Hct MCV MCHC RDW Plt Count Lymph % (Auto) [place] % (Auto) [place] # Seg Neutrophils % Seg Neuts % (Manual) Lymphocytes % (Manual) Monocytes % (Manual) Seg Neutrophils # Seg Neutrophils # Man Lymphocytes # (Manual) Monocytes # (Manual) APTT Heparin Anti-Xa Level POC ABG pH 7.110 L POC ABG pCO2 50.3 H POC ABG pO2 65 L Sodium Potassium Chloride Carbon Dioxide BUN Creatinine Glucose POC Glucose Lactic Acid Calcium Phosphorus Total Bilirubin AST ALT Total Creatine Kinase CK-MB (CK-2) Troponin T Total Protein Albumin HDL Cholesterol Salicylates < 0.3 L Acetaminophen < 5.0 L Crossmatch 10/11/18 10/11/18 10/11/18 01:22 03:27 04:14 WBC RBC Hgb Hct MCV MCHC RDW Plt Count Lymph % (Auto) [place] % (Auto) [place] # Seg Neutrophils % Seg Neuts % (Manual) Lymphocytes % (Manual) Monocytes % (Manual) Seg Neutrophils # Seg Neutrophils # Man Lymphocytes # (Manual) Monocytes # (Manual) APTT Heparin Anti-Xa Level POC ABG pH POC ABG pCO2 POC ABG pO2 Sodium Potassium Chloride Carbon Dioxide BUN Creatinine Glucose POC Glucose Lactic Acid 8.50 H* 4.10 H* Calcium Phosphorus 4.90 H Total Bilirubin AST ALT Total Creatine Kinase CK-MB (CK-2) Troponin T Total Protein Albumin HDL Cholesterol Salicylates Acetaminophen Crossmatch 10/11/18 10/11/18 10/11/18 04:14 04:14 04:14 WBC RBC Hgb Hct MCV MCHC RDW Plt Count Lymph % (Auto) [place] % (Auto) [place] # Seg Neutrophils % Seg Neuts % (Manual) Lymphocytes % (Manual) Monocytes % (Manual) Seg Neutrophils # Seg Neutrophils # Man Lymphocytes # (Manual) Monocytes # (Manual) APTT Heparin Anti-Xa Level POC ABG pH POC ABG pCO2 POC ABG pO2 Sodium Potassium 5.6 H Chloride Carbon Dioxide 19 L BUN Creatinine 1.6 H Glucose 329 H POC Glucose 328 H Lactic Acid Calcium 7.3 L Phosphorus Total Bilirubin AST ALT Total Creatine Kinase CK-MB (CK-2) Troponin T 1.130 H* D Total Protein Albumin HDL Cholesterol Salicylates Acetaminophen Crossmatch 10/11/18 10/11/18 10/11/18 05:10 05:32 05:58 WBC RBC Hgb Hct MCV MCHC RDW Plt Count Lymph % (Auto) [place] % (Auto) [place] # Seg Neutrophils % Seg Neuts % (Manual) Lymphocytes % (Manual) Monocytes % (Manual) Seg Neutrophils # Seg Neutrophils # Man Lymphocytes # (Manual) Monocytes # (Manual) APTT Heparin Anti-Xa Level POC ABG pH 7.259 L POC ABG pCO2 45.6 H POC ABG pO2 Sodium Potassium Chloride 108.6 H Carbon Dioxide 20 L BUN Creatinine 1.8 H Glucose 269 H POC Glucose 273 H Lactic Acid Calcium 7.0 L Phosphorus Total Bilirubin AST ALT Total Creatine Kinase CK-MB (CK-2) Troponin T Total Protein Albumin HDL Cholesterol Salicylates Acetaminophen Crossmatch 10/11/18 10/11/18 10/11/18 05:58 06:39 07:00 WBC RBC Hgb Hct MCV MCHC RDW Plt Count Lymph % (Auto) [place] % (Auto) [place] # Seg Neutrophils % Seg Neuts % (Manual) Lymphocytes % (Manual) Monocytes % (Manual) Seg Neutrophils # Seg Neutrophils # Man Lymphocytes # (Manual) Monocytes # (Manual) APTT Heparin Anti-Xa Level POC ABG pH POC ABG pCO2 POC ABG pO2 Sodium Potassium Chloride Carbon Dioxide BUN Creatinine Glucose POC Glucose 247 H Lactic Acid 3.20 H* 3.30 H* Calcium Phosphorus Total Bilirubin AST ALT Total Creatine Kinase CK-MB (CK-2) Troponin T Total Protein Albumin HDL Cholesterol Salicylates Acetaminophen Crossmatch 10/11/18 10/11/18 10/11/18 07:00 07:30 07:36 WBC RBC Hgb Hct MCV MCHC RDW Plt Count Lymph % (Auto) [place] % (Auto) [place] # Seg Neutrophils % Seg Neuts % (Manual) Lymphocytes % (Manual) Monocytes % (Manual) Seg Neutrophils # Seg Neutrophils # Man Lymphocytes # (Manual) Monocytes # (Manual) APTT Heparin Anti-Xa Level POC ABG pH POC ABG pCO2 POC ABG pO2 Sodium 146 H Potassium Chloride 112.1 H Carbon Dioxide 21 L BUN Creatinine 1.6 H Glucose 218 H POC Glucose Lactic Acid 3.20 H* Calcium 7.0 L Phosphorus Total Bilirubin AST ALT Total Creatine Kinase CK-MB (CK-2) Troponin T 1.020 H* Total Protein Albumin HDL Cholesterol Salicylates Acetaminophen Crossmatch 10/11/18 10/11/18 10/11/18 07:43 08:29 08:29 WBC RBC Hgb 16.2 H Hct 49.9 H D MCV MCHC RDW Plt Count Lymph % (Auto) [place] % (Auto) [place] # Seg Neutrophils % Seg Neuts % (Manual) Lymphocytes % (Manual) Monocytes % (Manual) Seg Neutrophils # Seg Neutrophils # Man Lymphocytes # (Manual) Monocytes # (Manual) APTT Heparin Anti-Xa Level POC ABG pH POC ABG pCO2 POC ABG pO2 Sodium Potassium Chloride Carbon Dioxide BUN Creatinine Glucose POC Glucose 174 H Lactic Acid 3.90 H* Calcium Phosphorus Total Bilirubin AST ALT Total Creatine Kinase CK-MB (CK-2) Troponin T Total Protein Albumin HDL Cholesterol Salicylates Acetaminophen Crossmatch 10/11/18 10/11/18 10/11/18 08:29 08:42 11:05 WBC RBC Hgb Hct MCV MCHC RDW Plt Count Lymph % (Auto) [place] % (Auto) [place] # Seg Neutrophils % Seg Neuts % (Manual) Lymphocytes % (Manual) Monocytes % (Manual) Seg Neutrophils # Seg Neutrophils # Man Lymphocytes # (Manual) Monocytes # (Manual) APTT 24.1 L Heparin Anti-Xa Level POC ABG pH POC ABG pCO2 POC ABG pO2 Sodium 147 H Potassium Chloride 113.3 H Carbon Dioxide 21 L BUN Creatinine 1.7 H Glucose 119 H POC Glucose 164 H Lactic Acid Calcium 7.7 L Phosphorus Total Bilirubin AST ALT Total Creatine Kinase CK-MB (CK-2) Troponin T Total Protein Albumin HDL Cholesterol Salicylates Acetaminophen Crossmatch 10/11/18 10/11/18 10/11/18 11:05 11:06 12:30 WBC RBC Hgb Hct MCV MCHC RDW Plt Count Lymph % (Auto) [place] % (Auto) [place] # Seg Neutrophils % Seg Neuts % (Manual) Lymphocytes % (Manual) Monocytes % (Manual) Seg Neutrophils # Seg Neutrophils # Man Lymphocytes # (Manual) Monocytes # (Manual) APTT Heparin Anti-Xa Level POC ABG pH POC ABG pCO2 POC ABG pO2 Sodium 148 H Potassium Chloride 113.4 H Carbon Dioxide 21 L BUN Creatinine 1.6 H Glucose 119 H POC Glucose 116 H Lactic Acid 3.20 H* Calcium 7.5 L Phosphorus Total Bilirubin AST ALT Total Creatine Kinase CK-MB (CK-2) Troponin T Total Protein Albumin HDL Cholesterol Salicylates Acetaminophen Crossmatch 10/11/18 10/11/18 10/11/18 12:30 13:16 13:25 WBC RBC Hgb Hct MCV MCHC RDW Plt Count Lymph % (Auto) [place] % (Auto) [place] # Seg Neutrophils % Seg Neuts % (Manual) Lymphocytes % (Manual) Monocytes % (Manual) Seg Neutrophils # Seg Neutrophils # Man Lymphocytes # (Manual) Monocytes # (Manual) APTT Heparin Anti-Xa Level POC ABG pH 7.247 L POC ABG pCO2 48.4 H POC ABG pO2 Sodium Potassium Chloride Carbon Dioxide BUN Creatinine Glucose POC Glucose 112 H Lactic Acid 2.70 H* Calcium Phosphorus Total Bilirubin AST ALT Total Creatine Kinase CK-MB (CK-2) Troponin T Total Protein Albumin HDL Cholesterol Salicylates Acetaminophen Crossmatch 10/11/18 10/11/18 10/11/18 14:41 15:27 16:13 WBC RBC Hgb Hct MCV MCHC RDW Plt Count Lymph % (Auto) [place] % (Auto) [place] # Seg Neutrophils % Seg Neuts % (Manual) Lymphocytes % (Manual) Monocytes % (Manual) Seg Neutrophils # Seg Neutrophils # Man Lymphocytes # (Manual) Monocytes # (Manual) APTT Heparin Anti-Xa Level POC ABG pH POC ABG pCO2 POC ABG pO2 Sodium Potassium Chloride Carbon Dioxide BUN Creatinine Glucose POC Glucose 127 H 141 H 134 H Lactic Acid Calcium Phosphorus Total Bilirubin AST ALT Total Creatine Kinase CK-MB (CK-2) Troponin T Total Protein Albumin HDL Cholesterol Salicylates Acetaminophen Crossmatch 10/11/18 10/11/18 10/11/18 17:18 18:23 19:38 WBC RBC Hgb Hct MCV MCHC RDW Plt Count Lymph % (Auto) [place] % (Auto) [place] # Seg Neutrophils % Seg Neuts % (Manual) Lymphocytes % (Manual) Monocytes % (Manual) Seg Neutrophils # Seg Neutrophils # Man Lymphocytes # (Manual) Monocytes # (Manual) APTT Heparin Anti-Xa Level POC ABG pH POC ABG pCO2 POC ABG pO2 Sodium 148 H Potassium Chloride 112.7 H Carbon Dioxide BUN 23 H Creatinine Glucose 143 H POC Glucose 132 H 129 H Lactic Acid Calcium 7.9 L Phosphorus Total Bilirubin AST ALT Total Creatine Kinase CK-MB (CK-2) Troponin T Total Protein Albumin HDL Cholesterol Salicylates Acetaminophen Crossmatch 10/11/18 10/11/18 10/11/18 20:19 20:36 21:01 WBC RBC Hgb Hct MCV MCHC RDW Plt Count Lymph % (Auto) [place] % (Auto) [place] # Seg Neutrophils % Seg Neuts % (Manual) Lymphocytes % (Manual) Monocytes % (Manual) Seg Neutrophils # Seg Neutrophils # Man Lymphocytes # (Manual) Monocytes # (Manual) APTT Heparin Anti-Xa Level POC ABG pH 7.281 L POC ABG pCO2 POC ABG pO2 Sodium Potassium Chloride Carbon Dioxide BUN Creatinine Glucose POC Glucose 129 H 151 H Lactic Acid Calcium Phosphorus Total Bilirubin AST ALT Total Creatine Kinase CK-MB (CK-2) Troponin T Total Protein Albumin HDL Cholesterol Salicylates Acetaminophen Crossmatch 10/11/18 10/11/18 10/12/18 22:04 23:15 01:18 WBC RBC Hgb Hct MCV MCHC RDW Plt Count Lymph % (Auto) [place] % (Auto) [place] # Seg Neutrophils % Seg Neuts % (Manual) Lymphocytes % (Manual) Monocytes % (Manual) Seg Neutrophils # Seg Neutrophils # Man Lymphocytes # (Manual) Monocytes # (Manual) APTT Heparin Anti-Xa Level POC ABG pH POC ABG pCO2 POC ABG pO2 Sodium Potassium Chloride Carbon Dioxide BUN Creatinine Glucose POC Glucose 147 H 143 H 158 H Lactic Acid Calcium Phosphorus Total Bilirubin AST ALT Total Creatine Kinase CK-MB (CK-2) Troponin T Total Protein Albumin HDL Cholesterol Salicylates Acetaminophen Crossmatch 10/12/18 10/12/18 10/12/18 02:13 03:18 04:04 WBC RBC Hgb Hct MCV MCHC RDW Plt Count Lymph % (Auto) [place] % (Auto) [place] # Seg Neutrophils % Seg Neuts % (Manual) Lymphocytes % (Manual) Monocytes % (Manual) Seg Neutrophils # Seg Neutrophils # Man Lymphocytes # (Manual) Monocytes # (Manual) APTT Heparin Anti-Xa Level POC ABG pH POC ABG pCO2 POC ABG pO2 Sodium 147 H Potassium Chloride 111.1 H Carbon Dioxide BUN 30 H Creatinine 2.0 H Glucose 154 H POC Glucose 148 H 142 H Lactic Acid Calcium 8.1 L Phosphorus Total Bilirubin AST 269 H ALT 204 H Total Creatine Kinase 3647 H CK-MB (CK-2) 48.3 H Troponin T 2.230 H* D Total Protein 5.8 L Albumin 2.6 L HDL Cholesterol Salicylates Acetaminophen Crossmatch 10/12/18 10/12/18 10/12/18 04:04 04:08 04:19 WBC 24.4 H RBC Hgb Hct MCV MCHC RDW Plt Count Lymph % (Auto) [place] % (Auto) [place] # Seg Neutrophils % Seg Neuts % (Manual) 32.0 L Lymphocytes % (Manual) Monocytes % (Manual) 8.0 H Seg Neutrophils # Seg Neutrophils # Man 7.8 H Lymphocytes # (Manual) Monocytes # (Manual) 2.0 H APTT Heparin Anti-Xa Level POC ABG pH 7.317 L POC ABG pCO2 49.3 H POC ABG pO2 Sodium Potassium Chloride Carbon Dioxide BUN Creatinine Glucose POC Glucose 143 H Lactic Acid Calcium Phosphorus Total Bilirubin AST ALT Total Creatine Kinase CK-MB (CK-2) Troponin T Total Protein Albumin HDL Cholesterol Salicylates Acetaminophen Crossmatch 10/12/18 10/12/18 10/12/18 05:29 06:52 08:09 WBC RBC Hgb Hct MCV MCHC RDW Plt Count Lymph % (Auto) [place] % (Auto) [place] # Seg Neutrophils % Seg Neuts % (Manual) Lymphocytes % (Manual) Monocytes % (Manual) Seg Neutrophils # Seg Neutrophils # Man Lymphocytes # (Manual) Monocytes # (Manual) APTT Heparin Anti-Xa Level POC ABG pH 7.322 L POC ABG pCO2 46.5 H POC ABG pO2 Sodium Potassium Chloride Carbon Dioxide BUN Creatinine Glucose POC Glucose 196 H 226 H Lactic Acid Calcium Phosphorus Total Bilirubin AST ALT Total Creatine Kinase CK-MB (CK-2) Troponin T Total Protein Albumin HDL Cholesterol Salicylates Acetaminophen Crossmatch 10/12/18 10/12/18 10/12/18 08:38 10:03 15:50 WBC RBC Hgb Hct MCV MCHC RDW Plt Count Lymph % (Auto) [place] % (Auto) [place] # Seg Neutrophils % Seg Neuts % (Manual) Lymphocytes % (Manual) Monocytes % (Manual) Seg Neutrophils # Seg Neutrophils # Man Lymphocytes # (Manual) Monocytes # (Manual) APTT Heparin Anti-Xa Level POC ABG pH POC ABG pCO2 POC ABG pO2 Sodium Potassium Chloride Carbon Dioxide BUN Creatinine Glucose POC Glucose 138 H 148 H 221 H Lactic Acid Calcium Phosphorus Total Bilirubin AST ALT Total Creatine Kinase CK-MB (CK-2) Troponin T Total Protein Albumin HDL Cholesterol Salicylates Acetaminophen Crossmatch 10/12/18 10/12/18 10/12/18 18:39 20:56 21:34 WBC RBC Hgb Hct MCV MCHC RDW Plt Count Lymph % (Auto) [place] % (Auto) [place] # Seg Neutrophils % Seg Neuts % (Manual) Lymphocytes % (Manual) Monocytes % (Manual) Seg Neutrophils # Seg Neutrophils # Man Lymphocytes # (Manual) Monocytes # (Manual) APTT Heparin Anti-Xa Level POC ABG pH 7.336 L POC ABG pCO2 46.0 H POC ABG pO2 Sodium Potassium Chloride Carbon Dioxide BUN Creatinine Glucose POC Glucose 255 H 260 H Lactic Acid Calcium Phosphorus Total Bilirubin AST ALT Total Creatine Kinase CK-MB (CK-2) Troponin T Total Protein Albumin HDL Cholesterol Salicylates Acetaminophen Crossmatch 10/13/18 10/13/18 10/13/18 02:29 05:09 05:40 WBC 17.0 H RBC Hgb Hct MCV MCHC RDW Plt Count Lymph % (Auto) [place] % (Auto) 9.2 H [place] # 1.6 H Seg Neutrophils % 76.2 H Seg Neuts % (Manual) Lymphocytes % (Manual) Monocytes % (Manual) Seg Neutrophils # 12.9 H Seg Neutrophils # Man Lymphocytes # (Manual) Monocytes # (Manual) APTT Heparin Anti-Xa Level POC ABG pH POC ABG pCO2 POC ABG pO2 Sodium Potassium Chloride Carbon Dioxide BUN Creatinine Glucose POC Glucose 216 H 249 H Lactic Acid Calcium Phosphorus Total Bilirubin AST ALT Total Creatine Kinase CK-MB (CK-2) Troponin T Total Protein Albumin HDL Cholesterol Salicylates Acetaminophen Crossmatch 10/13/18 10/13/18 10/13/18 05:40 05:40 09:46 WBC RBC Hgb Hct MCV MCHC RDW Plt Count Lymph % (Auto) [place] % (Auto) [place] # Seg Neutrophils % Seg Neuts % (Manual) Lymphocytes % (Manual) Monocytes % (Manual) Seg Neutrophils # Seg Neutrophils # Man Lymphocytes # (Manual) Monocytes # (Manual) APTT Heparin Anti-Xa Level POC ABG pH POC ABG pCO2 POC ABG pO2 Sodium 146 H Potassium Chloride 109.8 H Carbon Dioxide BUN 35 H Creatinine Glucose 245 H POC Glucose 235 H Lactic Acid Calcium 7.9 L Phosphorus Total Bilirubin AST ALT Total Creatine Kinase CK-MB (CK-2) Troponin T 0.952 H* D Total Protein Albumin HDL Cholesterol Salicylates Acetaminophen Crossmatch 10/13/18 10/13/18 10/13/18 13:58 16:15 17:30 WBC RBC Hgb Hct MCV MCHC RDW Plt Count Lymph % (Auto) [place] % (Auto) [place] # Seg Neutrophils % Seg Neuts % (Manual) Lymphocytes % (Manual) Monocytes % (Manual) Seg Neutrophils # Seg Neutrophils # Man Lymphocytes # (Manual) Monocytes # (Manual) APTT Heparin Anti-Xa Level POC ABG pH POC ABG pCO2 51.2 H POC ABG pO2 Sodium Potassium Chloride Carbon Dioxide BUN Creatinine Glucose POC Glucose 139 H Lactic Acid Calcium Phosphorus Total Bilirubin AST ALT Total Creatine Kinase CK-MB (CK-2) Troponin T 0.816 H* Total Protein Albumin HDL Cholesterol Salicylates Acetaminophen Crossmatch 10/13/18 10/14/18 10/14/18 21:25 01:49 04:52 WBC RBC Hgb Hct MCV MCHC RDW Plt Count Lymph % (Auto) [place] % (Auto) [place] # Seg Neutrophils % Seg Neuts % (Manual) Lymphocytes % (Manual) Monocytes % (Manual) Seg Neutrophils # Seg Neutrophils # Man Lymphocytes # (Manual) Monocytes # (Manual) APTT Heparin Anti-Xa Level POC ABG pH POC ABG pCO2 56.0 H POC ABG pO2 Sodium Potassium Chloride Carbon Dioxide BUN Creatinine Glucose POC Glucose 205 H 166 H Lactic Acid Calcium Phosphorus Total Bilirubin AST ALT Total Creatine Kinase CK-MB (CK-2) Troponin T Total Protein Albumin HDL Cholesterol Salicylates Acetaminophen Crossmatch 05/10/2810/14/18 10/14/18 05:32 09:45 09:45 WBC RBC Hgb 11.4 L Hct 34.5 L MCV MCHC RDW Plt Count 139 L Lymph % (Auto) [place] % (Auto) [place] # Seg Neutrophils % Seg Neuts % (Manual) Lymphocytes % (Manual) Monocytes % (Manual) Seg Neutrophils # Seg Neutrophils # Man Lymphocytes # (Manual) Monocytes # (Manual) APTT Heparin Anti-Xa Level POC ABG pH POC ABG pCO2 POC ABG pO2 Sodium 148 H Potassium Chloride 107.3 H Carbon Dioxide 34 H D BUN Creatinine 0.7 L D Glucose 191 H POC Glucose 164 H Lactic Acid Calcium 7.3 L Phosphorus Total Bilirubin AST 110 H ALT 91 H Total Creatine Kinase CK-MB (CK-2) Troponin T Total Protein 4.9 L Albumin 2.0 L HDL Cholesterol Salicylates Acetaminophen Crossmatch 10/14/18 10/14/18 10/14/18 10:54 12:20 18:30 WBC RBC Hgb Hct MCV MCHC RDW Plt Count Lymph % (Auto) [place] % (Auto) [place] # Seg Neutrophils % Seg Neuts % (Manual) Lymphocytes % (Manual) Monocytes % (Manual) Seg Neutrophils # Seg Neutrophils # Man Lymphocytes # (Manual) Monocytes # (Manual) APTT Heparin Anti-Xa Level POC ABG pH POC ABG pCO2 POC ABG pO2 Sodium Potassium Chloride Carbon Dioxide BUN Creatinine Glucose POC Glucose 173 H 158 H 108 H Lactic Acid Calcium Phosphorus Total Bilirubin AST ALT Total Creatine Kinase CK-MB (CK-2) Troponin T Total Protein Albumin HDL Cholesterol Salicylates Acetaminophen Crossmatch 10/14/18 10/15/18 10/15/18 21:54 02:12 04:19 WBC RBC Hgb Hct MCV MCHC RDW Plt Count Lymph % (Auto) [place] % (Auto) [place] # Seg Neutrophils % Seg Neuts % (Manual) Lymphocytes % (Manual) Monocytes % (Manual) Seg Neutrophils # Seg Neutrophils # Man Lymphocytes # (Manual) Monocytes # (Manual) APTT Heparin Anti-Xa Level POC ABG pH 7.491 H POC ABG pCO2 45.1 H POC ABG pO2 Sodium Potassium Chloride Carbon Dioxide BUN Creatinine Glucose POC Glucose 110 H 164 H Lactic Acid Calcium Phosphorus Total Bilirubin AST ALT Total Creatine Kinase CK-MB (CK-2) Troponin T Total Protein Albumin HDL Cholesterol Salicylates Acetaminophen Crossmatch 10/15/18 10/15/18 10/15/18 04:55 05:43 06:20 WBC RBC Hgb 11.7 L Hct 34.7 L MCV MCHC RDW Plt Count Lymph % (Auto) [place] % (Auto) [place] # Seg Neutrophils % Seg Neuts % (Manual) Lymphocytes % (Manual) Monocytes % (Manual) Seg Neutrophils # Seg Neutrophils # Man Lymphocytes # (Manual) Monocytes # (Manual) APTT Heparin Anti-Xa Level POC ABG pH POC ABG pCO2 47.3 H POC ABG pO2 78 L Sodium Potassium Chloride Carbon Dioxide BUN Creatinine Glucose POC Glucose 250 H Lactic Acid Calcium Phosphorus Total Bilirubin AST ALT Total Creatine Kinase CK-MB (CK-2) Troponin T Total Protein Albumin HDL Cholesterol Salicylates Acetaminophen Crossmatch 10/15/18 10/15/18 10/15/18 12:00 12:00 12:11 WBC RBC Hgb 11.5 L Hct 34.0 L MCV MCHC RDW Plt Count Lymph % (Auto) [place] % (Auto) [place] # Seg Neutrophils % Seg Neuts % (Manual) Lymphocytes % (Manual) Monocytes % (Manual) Seg Neutrophils # Seg Neutrophils # Man Lymphocytes # (Manual) Monocytes # (Manual) APTT Heparin Anti-Xa Level POC ABG pH POC ABG pCO2 POC ABG pO2 Sodium 147 H Potassium Chloride 108.5 H Carbon Dioxide BUN Creatinine 0.7 L Glucose 209 H POC Glucose 197 H Lactic Acid Calcium 7.3 L Phosphorus Total Bilirubin AST ALT Total Creatine Kinase CK-MB (CK-2) Troponin T Total Protein Albumin HDL Cholesterol Salicylates Acetaminophen Crossmatch 10/15/18 10/15/18 10/15/18 15:48 18:34 21:29 WBC RBC Hgb Hct MCV MCHC RDW Plt Count Lymph % (Auto) [place] % (Auto) [place] # Seg Neutrophils % Seg Neuts % (Manual) Lymphocytes % (Manual) Monocytes % (Manual) Seg Neutrophils # Seg Neutrophils # Man Lymphocytes # (Manual) Monocytes # (Manual) APTT Heparin Anti-Xa Level POC ABG pH POC ABG pCO2 POC ABG pO2 Sodium Potassium Chloride Carbon Dioxide BUN Creatinine Glucose POC Glucose 220 H 249 H 209 H Lactic Acid Calcium Phosphorus Total Bilirubin AST ALT Total Creatine Kinase CK-MB (CK-2) Troponin T Total Protein Albumin HDL Cholesterol Salicylates Acetaminophen Crossmatch 10/16/18 10/16/18 10/16/18 02:16 03:50 05:57 WBC RBC Hgb Hct MCV MCHC RDW Plt Count Lymph % (Auto) [place] % (Auto) [place] # Seg Neutrophils % Seg Neuts % (Manual) Lymphocytes % (Manual) Monocytes % (Manual) Seg Neutrophils # Seg Neutrophils # Man Lymphocytes # (Manual) Monocytes # (Manual) APTT Heparin Anti-Xa Level POC ABG pH POC ABG pCO2 55.8 H POC ABG pO2 Sodium Potassium Chloride Carbon Dioxide BUN Creatinine Glucose POC Glucose 110 H 209 H Lactic Acid Calcium Phosphorus Total Bilirubin AST ALT Total Creatine Kinase CK-MB (CK-2) Troponin T Total Protein Albumin HDL Cholesterol Salicylates Acetaminophen Crossmatch 10/16/18 10/16/18 10/16/18 10:51 12:51 15:01 WBC RBC Hgb Hct MCV MCHC RDW Plt Count Lymph % (Auto) [place] % (Auto) [place] # Seg Neutrophils % Seg Neuts % (Manual) Lymphocytes % (Manual) Monocytes % (Manual) Seg Neutrophils # Seg Neutrophils # Man Lymphocytes # (Manual) Monocytes # (Manual) APTT Heparin Anti-Xa Level POC ABG pH POC ABG pCO2 48.9 H POC ABG pO2 Sodium Potassium Chloride Carbon Dioxide BUN Creatinine Glucose POC Glucose 198 H 196 H Lactic Acid Calcium Phosphorus Total Bilirubin AST ALT Total Creatine Kinase CK-MB (CK-2) Troponin T Total Protein Albumin HDL Cholesterol Salicylates Acetaminophen Crossmatch 10/16/18 10/16/18 10/17/18 17:34 21:59 02:17 WBC RBC Hgb Hct MCV MCHC RDW Plt Count Lymph % (Auto) [place] % (Auto) [place] # Seg Neutrophils % Seg Neuts % (Manual) Lymphocytes % (Manual) Monocytes % (Manual) Seg Neutrophils # Seg Neutrophils # Man Lymphocytes # (Manual) Monocytes # (Manual) APTT Heparin Anti-Xa Level POC ABG pH POC ABG pCO2 POC ABG pO2 Sodium Potassium Chloride Carbon Dioxide BUN Creatinine Glucose POC Glucose 179 H 139 H 135 H Lactic Acid Calcium Phosphorus Total Bilirubin AST ALT Total Creatine Kinase CK-MB (CK-2) Troponin T Total Protein Albumin HDL Cholesterol Salicylates Acetaminophen Crossmatch 10/17/18 10/17/18 10/17/18 05:40 05:47 10:18 WBC RBC Hgb 11.3 L Hct 33.2 L MCV MCHC RDW Plt Count Lymph % (Auto) [place] % (Auto) [place] # Seg Neutrophils % Seg Neuts % (Manual) Lymphocytes % (Manual) Monocytes % (Manual) Seg Neutrophils # Seg Neutrophils # Man Lymphocytes # (Manual) Monocytes # (Manual) APTT Heparin Anti-Xa Level POC ABG pH POC ABG pCO2 POC ABG pO2 Sodium Potassium Chloride Carbon Dioxide BUN Creatinine Glucose POC Glucose 125 H 139 H Lactic Acid Calcium Phosphorus Total Bilirubin AST ALT Total Creatine Kinase CK-MB (CK-2) Troponin T Total Protein Albumin HDL Cholesterol Salicylates Acetaminophen Crossmatch 10/17/18 10/18/18 10/18/18 23:11 08:49 11:31 WBC RBC Hgb Hct MCV MCHC RDW Plt Count Lymph % (Auto) [place] % (Auto) [place] # Seg Neutrophils % Seg Neuts % (Manual) Lymphocytes % (Manual) Monocytes % (Manual) Seg Neutrophils # Seg Neutrophils # Man Lymphocytes # (Manual) Monocytes # (Manual) APTT Heparin Anti-Xa Level POC ABG pH POC ABG pCO2 POC ABG pO2 Sodium Potassium Chloride Carbon Dioxide BUN Creatinine Glucose POC Glucose 165 H 125 H 182 H Lactic Acid Calcium Phosphorus Total Bilirubin AST ALT Total Creatine Kinase CK-MB (CK-2) Troponin T Total Protein Albumin HDL Cholesterol Salicylates Acetaminophen Crossmatch 10/18/18 10/18/18 10/19/18 16:12 21:02 00:28 WBC RBC Hgb 11.4 L Hct 33.6 L MCV MCHC RDW Plt Count Lymph % (Auto) [place] % (Auto) 14.0 H [place] # 1.2 H Seg Neutrophils % Seg Neuts % (Manual) Lymphocytes % (Manual) Monocytes % (Manual) Seg Neutrophils # Seg Neutrophils # Man Lymphocytes # (Manual) Monocytes # (Manual) APTT Heparin Anti-Xa Level POC ABG pH POC ABG pCO2 POC ABG pO2 Sodium Potassium Chloride Carbon Dioxide BUN Creatinine Glucose POC Glucose 168 H 324 H Lactic Acid Calcium Phosphorus Total Bilirubin AST ALT Total Creatine Kinase CK-MB (CK-2) Troponin T Total Protein Albumin HDL Cholesterol Salicylates Acetaminophen Crossmatch 10/19/18 10/19/18 10/19/18 04:57 04:57 07:32 WBC RBC Hgb 11.7 L Hct 34.0 L MCV MCHC RDW Plt Count Lymph % (Auto) [place] % (Auto) [place] # Seg Neutrophils % Seg Neuts % (Manual) Lymphocytes % (Manual) Monocytes % (Manual) Seg Neutrophils # Seg Neutrophils # Man Lymphocytes # (Manual) Monocytes # (Manual) APTT Heparin Anti-Xa Level POC ABG pH POC ABG pCO2 POC ABG pO2 Sodium Potassium 3.5 L Chloride 108.6 H Carbon Dioxide BUN Creatinine 0.6 L Glucose POC Glucose 159 H Lactic Acid Calcium 7.9 L Phosphorus Total Bilirubin AST ALT Total Creatine Kinase CK-MB (CK-2) Troponin T Total Protein Albumin HDL Cholesterol Salicylates Acetaminophen Crossmatch 10/19/18 10/19/18 10/20/18 16:25 20:59 12:04 WBC RBC Hgb Hct MCV MCHC RDW Plt Count Lymph % (Auto) [place] % (Auto) [place] # Seg Neutrophils % Seg Neuts % (Manual) Lymphocytes % (Manual) Monocytes % (Manual) Seg Neutrophils # Seg Neutrophils # Man Lymphocytes # (Manual) Monocytes # (Manual) APTT Heparin Anti-Xa Level POC ABG pH POC ABG pCO2 POC ABG pO2 Sodium Potassium Chloride Carbon Dioxide BUN Creatinine Glucose POC Glucose 134 H 110 H 338 H Lactic Acid Calcium Phosphorus Total Bilirubin AST ALT Total Creatine Kinase CK-MB (CK-2) Troponin T Total Protein Albumin HDL Cholesterol Salicylates Acetaminophen Crossmatch 10/20/18 10/20/18 10/21/18 17:55 22:07 04:59 WBC RBC Hgb 11.6 L Hct 33.9 L MCV MCHC RDW Plt Count Lymph % (Auto) [place] % (Auto) 9.7 H [place] # 0.9 H Seg Neutrophils % 70.7 H Seg Neuts % (Manual) Lymphocytes % (Manual) Monocytes % (Manual) Seg Neutrophils # Seg Neutrophils # Man Lymphocytes # (Manual) Monocytes # (Manual) APTT Heparin Anti-Xa Level POC ABG pH POC ABG pCO2 POC ABG pO2 Sodium Potassium Chloride Carbon Dioxide BUN Creatinine Glucose POC Glucose 146 H 164 H Lactic Acid Calcium Phosphorus Total Bilirubin AST ALT Total Creatine Kinase CK-MB (CK-2) Troponin T Total Protein Albumin HDL Cholesterol Salicylates Acetaminophen Crossmatch 10/21/18 10/21/18 10/21/18 04:59 07:52 11:39 WBC RBC Hgb Hct MCV MCHC RDW Plt Count Lymph % (Auto) [place] % (Auto) [place] # Seg Neutrophils % Seg Neuts % (Manual) Lymphocytes % (Manual) Monocytes % (Manual) Seg Neutrophils # Seg Neutrophils # Man Lymphocytes # (Manual) Monocytes # (Manual) APTT Heparin Anti-Xa Level POC ABG pH POC ABG pCO2 POC ABG pO2 Sodium Potassium 3.5 L Chloride 107.1 H Carbon Dioxide BUN Creatinine 0.5 L Glucose 158 H POC Glucose 142 H 194 H Lactic Acid Calcium 7.5 L Phosphorus Total Bilirubin AST ALT Total Creatine Kinase CK-MB (CK-2) Troponin T Total Protein 5.6 L Albumin 2.0 L HDL Cholesterol Salicylates Acetaminophen Crossmatch 10/21/18 10/21/18 10/22/18 17:05 20:37 05:38 WBC RBC 3.48 L Hgb 10.8 L Hct 31.7 L MCV MCHC RDW Plt Count 458 H Lymph % (Auto) [place] % (Auto) 10.5 H [place] # Seg Neutrophils % Seg Neuts % (Manual) Lymphocytes % (Manual) Monocytes % (Manual) Seg Neutrophils # Seg Neutrophils # Man Lymphocytes # (Manual) Monocytes # (Manual) APTT Heparin Anti-Xa Level POC ABG pH POC ABG pCO2 POC ABG pO2 Sodium Potassium Chloride Carbon Dioxide BUN Creatinine Glucose POC Glucose 167 H 182 H Lactic Acid Calcium Phosphorus Total Bilirubin AST ALT Total Creatine Kinase CK-MB (CK-2) Troponin T Total Protein Albumin HDL Cholesterol Salicylates Acetaminophen Crossmatch 10/22/18 10/22/18 10/22/18 05:38 07:48 12:08 WBC RBC Hgb Hct MCV MCHC RDW Plt Count Lymph % (Auto) [place] % (Auto) [place] # Seg Neutrophils % Seg Neuts % (Manual) Lymphocytes % (Manual) Monocytes % (Manual) Seg Neutrophils # Seg Neutrophils # Man Lymphocytes # (Manual) Monocytes # (Manual) APTT Heparin Anti-Xa Level POC ABG pH POC ABG pCO2 POC ABG pO2 Sodium Potassium Chloride Carbon Dioxide BUN Creatinine 0.5 L Glucose 146 H POC Glucose 130 H 167 H Lactic Acid Calcium 7.8 L Phosphorus Total Bilirubin AST 41 H ALT Total Creatine Kinase CK-MB (CK-2) Troponin T Total Protein 5.5 L Albumin 2.1 L HDL Cholesterol Salicylates Acetaminophen Crossmatch 10/22/18 10/22/18 10/23/18 16:45 21:42 04:38 WBC RBC Hgb 11.7 L Hct 34.7 L MCV MCHC RDW Plt Count 523 H Lymph % (Auto) [place] % (Auto) 8.7 H [place] # Seg Neutrophils % 71.6 H Seg Neuts % (Manual) Lymphocytes % (Manual) Monocytes % (Manual) Seg Neutrophils # Seg Neutrophils # Man Lymphocytes # (Manual) Monocytes # (Manual) APTT Heparin Anti-Xa Level POC ABG pH POC ABG pCO2 POC ABG pO2 Sodium Potassium Chloride Carbon Dioxide BUN Creatinine Glucose POC Glucose 113 H 134 H Lactic Acid Calcium Phosphorus Total Bilirubin AST ALT Total Creatine Kinase CK-MB (CK-2) Troponin T Total Protein Albumin HDL Cholesterol Salicylates Acetaminophen Crossmatch 10/23/18 10/23/18 10/23/18 04:38 07:56 11:15 WBC RBC Hgb Hct MCV MCHC RDW Plt Count Lymph % (Auto) [place] % (Auto) [place] # Seg Neutrophils % Seg Neuts % (Manual) Lymphocytes % (Manual) Monocytes % (Manual) Seg Neutrophils # Seg Neutrophils # Man Lymphocytes # (Manual) Monocytes # (Manual) APTT Heparin Anti-Xa Level POC ABG pH POC ABG pCO2 POC ABG pO2 Sodium Potassium Chloride Carbon Dioxide BUN 7 L Creatinine 0.5 L Glucose 150 H POC Glucose 123 H 212 H Lactic Acid Calcium 8.0 L Phosphorus Total Bilirubin AST 55 H ALT Total Creatine Kinase CK-MB (CK-2) Troponin T Total Protein 6.2 L Albumin 2.3 L HDL Cholesterol Salicylates Acetaminophen Crossmatch 10/23/18 10/23/18 10/24/18 16:06 22:01 05:56 WBC 11.8 H RBC 3.64 L Hgb 11.2 L Hct 33.4 L MCV MCHC RDW Plt Count 564 H Lymph % (Auto) 11.3 L [place] % (Auto) [place] # Seg Neutrophils % 80.2 H Seg Neuts % (Manual) Lymphocytes % (Manual) Monocytes % (Manual) Seg Neutrophils # 9.4 H Seg Neutrophils # Man Lymphocytes # (Manual) Monocytes # (Manual) APTT Heparin Anti-Xa Level POC ABG pH POC ABG pCO2 POC ABG pO2 Sodium Potassium Chloride Carbon Dioxide BUN Creatinine Glucose POC Glucose 152 H 235 H Lactic Acid Calcium Phosphorus Total Bilirubin AST ALT Total Creatine Kinase CK-MB (CK-2) Troponin T Total Protein Albumin HDL Cholesterol Salicylates Acetaminophen Crossmatch 10/24/18 10/24/18 10/24/18 05:56 07:52 11:58 WBC RBC Hgb Hct MCV MCHC RDW Plt Count Lymph % (Auto) [place] % (Auto) [place] # Seg Neutrophils % Seg Neuts % (Manual) Lymphocytes % (Manual) Monocytes % (Manual) Seg Neutrophils # Seg Neutrophils # Man Lymphocytes # (Manual) Monocytes # (Manual) APTT Heparin Anti-Xa Level POC ABG pH POC ABG pCO2 POC ABG pO2 Sodium Potassium Chloride Carbon Dioxide BUN Creatinine 0.5 L Glucose 175 H POC Glucose 156 H 238 H Lactic Acid Calcium 8.0 L Phosphorus Total Bilirubin AST 44 H ALT Total Creatine Kinase CK-MB (CK-2) Troponin T Total Protein 6.2 L Albumin 2.4 L HDL Cholesterol Salicylates Acetaminophen Crossmatch 10/24/18 10/24/18 10/25/18 16:20 22:13 07:53 WBC RBC Hgb Hct MCV MCHC RDW Plt Count Lymph % (Auto) [place] % (Auto) [place] # Seg Neutrophils % Seg Neuts % (Manual) Lymphocytes % (Manual) Monocytes % (Manual) Seg Neutrophils # Seg Neutrophils # Man Lymphocytes # (Manual) Monocytes # (Manual) APTT Heparin Anti-Xa Level POC ABG pH POC ABG pCO2 POC ABG pO2 Sodium Potassium Chloride Carbon Dioxide BUN Creatinine Glucose POC Glucose 60 L 261 H 211 H Lactic Acid Calcium Phosphorus Total Bilirubin AST ALT Total Creatine Kinase CK-MB (CK-2) Troponin T Total Protein Albumin HDL Cholesterol Salicylates Acetaminophen Crossmatch 10/25/18 10/25/18 10/25/18 11:03 16:02 22:45 WBC RBC Hgb Hct MCV MCHC RDW Plt Count Lymph % (Auto) [place] % (Auto) [place] # Seg Neutrophils % Seg Neuts % (Manual) Lymphocytes % (Manual) Monocytes % (Manual) Seg Neutrophils # Seg Neutrophils # Man Lymphocytes # (Manual) Monocytes # (Manual) APTT Heparin Anti-Xa Level POC ABG pH POC ABG pCO2 POC ABG pO2 Sodium Potassium Chloride Carbon Dioxide BUN Creatinine Glucose POC Glucose 137 H 186 H 140 H Lactic Acid Calcium Phosphorus Total Bilirubin AST ALT Total Creatine Kinase CK-MB (CK-2) Troponin T Total Protein Albumin HDL Cholesterol Salicylates Acetaminophen Crossmatch 10/26/18 10/26/18 10/26/18 08:13 10:08 11:28 WBC RBC Hgb Hct MCV MCHC RDW Plt Count Lymph % (Auto) [place] % (Auto) [place] # Seg Neutrophils % Seg Neuts % (Manual) Lymphocytes % (Manual) Monocytes % (Manual) Seg Neutrophils # Seg Neutrophils # Man Lymphocytes # (Manual) Monocytes # (Manual) APTT Heparin Anti-Xa Level POC ABG pH POC ABG pCO2 POC ABG pO2 Sodium Potassium Chloride Carbon Dioxide BUN Creatinine Glucose POC Glucose 144 H 110 H 201 H Lactic Acid Calcium Phosphorus Total Bilirubin AST ALT Total Creatine Kinase CK-MB (CK-2) Troponin T Total Protein Albumin HDL Cholesterol Salicylates Acetaminophen Crossmatch 10/26/18 10/26/18 10/27/18 16:36 22:29 07:34 WBC RBC Hgb Hct MCV MCHC RDW Plt Count Lymph % (Auto) [place] % (Auto) [place] # Seg Neutrophils % Seg Neuts % (Manual) Lymphocytes % (Manual) Monocytes % (Manual) Seg Neutrophils # Seg Neutrophils # Man Lymphocytes # (Manual) Monocytes # (Manual) APTT Heparin Anti-Xa Level POC ABG pH POC ABG pCO2 POC ABG pO2 Sodium Potassium Chloride Carbon Dioxide BUN Creatinine Glucose POC Glucose 147 H 302 H 182 H Lactic Acid Calcium Phosphorus Total Bilirubin AST ALT Total Creatine Kinase CK-MB (CK-2) Troponin T Total Protein Albumin HDL Cholesterol Salicylates Acetaminophen Crossmatch 10/27/18 10/27/18 10/27/18 11:57 13:33 14:55 WBC RBC Hgb Hct MCV MCHC RDW Plt Count 550 H Lymph % (Auto) [place] % (Auto) [place] # Seg Neutrophils % Seg Neuts % (Manual) Lymphocytes % (Manual) Monocytes % (Manual) Seg Neutrophils # Seg Neutrophils # Man Lymphocytes # (Manual) Monocytes # (Manual) APTT Heparin Anti-Xa Level POC ABG pH POC ABG pCO2 POC ABG pO2 Sodium Potassium Chloride Carbon Dioxide BUN Creatinine Glucose POC Glucose 209 H Lactic Acid Calcium Phosphorus Total Bilirubin AST ALT Total Creatine Kinase CK-MB (CK-2) Troponin T Total Protein Albumin HDL Cholesterol Salicylates Acetaminophen Crossmatch See Detail 10/27/18 10/27/18 10/28/18 17:09 21:45 07:45 WBC RBC Hgb Hct MCV MCHC RDW Plt Count Lymph % (Auto) [place] % (Auto) [place] # Seg Neutrophils % Seg Neuts % (Manual) Lymphocytes % (Manual) Monocytes % (Manual) Seg Neutrophils # Seg Neutrophils # Man Lymphocytes # (Manual) Monocytes # (Manual) APTT Heparin Anti-Xa Level POC ABG pH POC ABG pCO2 POC ABG pO2 Sodium Potassium Chloride Carbon Dioxide BUN Creatinine Glucose POC Glucose 233 H 136 H 201 H Lactic Acid Calcium Phosphorus Total Bilirubin AST ALT Total Creatine Kinase CK-MB (CK-2) Troponin T Total Protein Albumin HDL Cholesterol Salicylates Acetaminophen Crossmatch 10/28/18 10/28/18 10/28/18 11:17 16:34 19:51 WBC RBC Hgb Hct MCV MCHC RDW Plt Count Lymph % (Auto) [place] % (Auto) [place] # Seg Neutrophils % Seg Neuts % (Manual) Lymphocytes % (Manual) Monocytes % (Manual) Seg Neutrophils # Seg Neutrophils # Man Lymphocytes # (Manual) Monocytes # (Manual) APTT Heparin Anti-Xa Level < 0.10 L POC ABG pH POC ABG pCO2 POC ABG pO2 Sodium Potassium Chloride Carbon Dioxide BUN Creatinine Glucose POC Glucose 116 H 168 H Lactic Acid Calcium Phosphorus Total Bilirubin AST ALT Total Creatine Kinase CK-MB (CK-2) Troponin T Total Protein Albumin HDL Cholesterol Salicylates Acetaminophen Crossmatch 10/28/18 10/29/18 10/29/18 21:52 07:11 07:11 WBC RBC Hgb Hct MCV MCHC RDW Plt Count 470 H Lymph % (Auto) [place] % (Auto) [place] # Seg Neutrophils % Seg Neuts % (Manual) Lymphocytes % (Manual) Monocytes % (Manual) Seg Neutrophils # Seg Neutrophils # Man Lymphocytes # (Manual) Monocytes # (Manual) APTT Heparin Anti-Xa Level 0.13 L POC ABG pH POC ABG pCO2 POC ABG pO2 Sodium Potassium Chloride Carbon Dioxide BUN Creatinine Glucose POC Glucose 159 H Lactic Acid Calcium Phosphorus Total Bilirubin AST ALT Total Creatine Kinase CK-MB (CK-2) Troponin T Total Protein Albumin HDL Cholesterol Salicylates Acetaminophen Crossmatch 10/29/18 10/29/18 10/29/18 07:11 07:43 11:29 WBC RBC Hgb Hct MCV MCHC RDW Plt Count Lymph % (Auto) [place] % (Auto) [place] # Seg Neutrophils % Seg Neuts % (Manual) Lymphocytes % (Manual) Monocytes % (Manual) Seg Neutrophils # Seg Neutrophils # Man Lymphocytes # (Manual) Monocytes # (Manual) APTT Heparin Anti-Xa Level POC ABG pH POC ABG pCO2 POC ABG pO2 Sodium Potassium Chloride Carbon Dioxide BUN 7 L Creatinine 0.5 L Glucose 122 H POC Glucose 147 H 165 H Lactic Acid Calcium 8.2 L Phosphorus Total Bilirubin AST ALT Total Creatine Kinase CK-MB (CK-2) Troponin T Total Protein Albumin HDL Cholesterol Salicylates Acetaminophen Crossmatch 10/29/18 10/29/18 10/30/18 19:50 22:11 00:11 WBC RBC Hgb Hct MCV MCHC RDW Plt Count Lymph % (Auto) [place] % (Auto) [place] # Seg Neutrophils % Seg Neuts % (Manual) Lymphocytes % (Manual) Monocytes % (Manual) Seg Neutrophils # Seg Neutrophils # Man Lymphocytes # (Manual) Monocytes # (Manual) APTT Heparin Anti-Xa Level 0.25 L POC ABG pH POC ABG pCO2 POC ABG pO2 Sodium Potassium Chloride Carbon Dioxide BUN Creatinine Glucose POC Glucose 166 H 173 H Lactic Acid Calcium Phosphorus Total Bilirubin AST ALT Total Creatine Kinase CK-MB (CK-2) Troponin T Total Protein Albumin HDL Cholesterol Salicylates Acetaminophen Crossmatch 10/30/18 10/30/18 10/30/18 04:22 04:22 07:47 WBC 27.0 H RBC 3.16 L Hgb 10.0 L Hct 28.8 L D MCV MCHC 35 H RDW Plt Count Lymph % (Auto) [place] % (Auto) [place] # Seg Neutrophils % Seg Neuts % (Manual) Lymphocytes % (Manual) 1.5 L Monocytes % (Manual) Seg Neutrophils # Seg Neutrophils # Man 18.6 H Lymphocytes # (Manual) 0.4 L Monocytes # (Manual) APTT Heparin Anti-Xa Level POC ABG pH POC ABG pCO2 POC ABG pO2 Sodium Potassium Chloride Carbon Dioxide BUN Creatinine Glucose 224 H POC Glucose 168 H Lactic Acid Calcium 7.5 L Phosphorus Total Bilirubin AST ALT Total Creatine Kinase CK-MB (CK-2) Troponin T Total Protein Albumin HDL Cholesterol Salicylates Acetaminophen Crossmatch 10/30/18 10/30/18 10/30/18 07:55 11:20 16:41 WBC RBC Hgb Hct MCV MCHC RDW Plt Count Lymph % (Auto) [place] % (Auto) [place] # Seg Neutrophils % Seg Neuts % (Manual) Lymphocytes % (Manual) Monocytes % (Manual) Seg Neutrophils # Seg Neutrophils # Man Lymphocytes # (Manual) Monocytes # (Manual) APTT Heparin Anti-Xa Level < 0.10 L POC ABG pH POC ABG pCO2 POC ABG pO2 Sodium Potassium Chloride Carbon Dioxide BUN Creatinine Glucose POC Glucose 165 H 142 H Lactic Acid Calcium Phosphorus Total Bilirubin AST ALT Total Creatine Kinase CK-MB (CK-2) Troponin T Total Protein Albumin HDL Cholesterol Salicylates Acetaminophen Crossmatch 10/30/18 10/30/18 10/31/18 20:51 21:20 05:21 WBC RBC Hgb 9.0 L Hct 26.6 L MCV MCHC RDW Plt Count Lymph % (Auto) [place] % (Auto) [place] # Seg Neutrophils % Seg Neuts % (Manual) Lymphocytes % (Manual) Monocytes % (Manual) Seg Neutrophils # Seg Neutrophils # Man Lymphocytes # (Manual) Monocytes # (Manual) APTT Heparin Anti-Xa Level < 0.10 L POC ABG pH POC ABG pCO2 POC ABG pO2 Sodium Potassium Chloride Carbon Dioxide BUN Creatinine Glucose POC Glucose 136 H Lactic Acid Calcium Phosphorus Total Bilirubin AST ALT Total Creatine Kinase CK-MB (CK-2) Troponin T Total Protein Albumin HDL Cholesterol Salicylates Acetaminophen Crossmatch 10/31/18 10/31/18 10/31/18 08:07 10:19 12:12 WBC RBC Hgb Hct MCV MCHC RDW Plt Count Lymph % (Auto) [place] % (Auto) [place] # Seg Neutrophils % Seg Neuts % (Manual) Lymphocytes % (Manual) Monocytes % (Manual) Seg Neutrophils # Seg Neutrophils # Man Lymphocytes # (Manual) Monocytes # (Manual) APTT Heparin Anti-Xa Level POC ABG pH POC ABG pCO2 POC ABG pO2 Sodium Potassium Chloride Carbon Dioxide BUN Creatinine Glucose POC Glucose 155 H 194 H Lactic Acid Calcium Phosphorus Total Bilirubin AST ALT Total Creatine Kinase CK-MB (CK-2) Troponin T Total Protein Albumin HDL Cholesterol Salicylates Acetaminophen Crossmatch See Detail 10/31/18 10/31/18 10/31/18 16:07 16:56 21:14 WBC RBC Hgb Hct MCV MCHC RDW Plt Count Lymph % (Auto) [place] % (Auto) [place] # Seg Neutrophils % Seg Neuts % (Manual) Lymphocytes % (Manual) Monocytes % (Manual) Seg Neutrophils # Seg Neutrophils # Man Lymphocytes # (Manual) Monocytes # (Manual) APTT Heparin Anti-Xa Level 1.20 H POC ABG pH POC ABG pCO2 POC ABG pO2 Sodium Potassium Chloride Carbon Dioxide BUN Creatinine Glucose POC Glucose 354 H 234 H Lactic Acid Calcium Phosphorus Total Bilirubin AST ALT Total Creatine Kinase CK-MB (CK-2) Troponin T Total Protein Albumin HDL Cholesterol Salicylates Acetaminophen Crossmatch 11/01/18 11/01/18 11/01/18 00:52 05:52 05:52 WBC 12.5 H RBC 2.95 L Hgb 9.1 L Hct 27.4 L MCV MCHC RDW 15.3 H Plt Count Lymph % (Auto) [place] % (Auto) [place] # Seg Neutrophils % Seg Neuts % (Manual) Lymphocytes % (Manual) Monocytes % (Manual) Seg Neutrophils # Seg Neutrophils # Man Lymphocytes # (Manual) Monocytes # (Manual) APTT Heparin Anti-Xa Level 1.53 H POC ABG pH POC ABG pCO2 POC ABG pO2 Sodium Potassium Chloride Carbon Dioxide BUN Creatinine 0.5 L Glucose 169 H POC Glucose Lactic Acid Calcium 8.3 L Phosphorus Total Bilirubin AST ALT Total Creatine Kinase CK-MB (CK-2) Troponin T Total Protein 6.2 L Albumin 2.3 L HDL Cholesterol Salicylates Acetaminophen Crossmatch 11/01/18 11/01/18 11/01/18 08:17 10:57 11:38 WBC RBC Hgb Hct MCV MCHC RDW Plt Count Lymph % (Auto) [place] % (Auto) [place] # Seg Neutrophils % Seg Neuts % (Manual) Lymphocytes % (Manual) Monocytes % (Manual) Seg Neutrophils # Seg Neutrophils # Man Lymphocytes # (Manual) Monocytes # (Manual) APTT Heparin Anti-Xa Level 1.05 H POC ABG pH POC ABG pCO2 POC ABG pO2 Sodium Potassium Chloride Carbon Dioxide BUN Creatinine Glucose POC Glucose 158 H 133 H Lactic Acid Calcium Phosphorus Total Bilirubin AST ALT Total Creatine Kinase CK-MB (CK-2) Troponin T Total Protein Albumin HDL Cholesterol Salicylates Acetaminophen Crossmatch 11/01/18 11/01/18 11/02/18 17:08 21:23 04:56 WBC RBC 3.02 L Hgb 9.5 L Hct 28.0 L MCV MCHC RDW Plt Count Lymph % (Auto) [place] % (Auto) [place] # Seg Neutrophils % Seg Neuts % (Manual) Lymphocytes % (Manual) Monocytes % (Manual) Seg Neutrophils # Seg Neutrophils # Man Lymphocytes # (Manual) Monocytes # (Manual) APTT Heparin Anti-Xa Level POC ABG pH POC ABG pCO2 POC ABG pO2 Sodium Potassium Chloride Carbon Dioxide BUN Creatinine Glucose POC Glucose 156 H 213 H Lactic Acid Calcium Phosphorus Total Bilirubin AST ALT Total Creatine Kinase CK-MB (CK-2) Troponin T Total Protein Albumin HDL Cholesterol Salicylates Acetaminophen Crossmatch 11/02/18 11/02/18 11/02/18 04:56 08:38 11:23 WBC RBC Hgb Hct MCV MCHC RDW Plt Count Lymph % (Auto) [place] % (Auto) [place] # Seg Neutrophils % Seg Neuts % (Manual) Lymphocytes % (Manual) Monocytes % (Manual) Seg Neutrophils # Seg Neutrophils # Man Lymphocytes # (Manual) Monocytes # (Manual) APTT Heparin Anti-Xa Level POC ABG pH POC ABG pCO2 POC ABG pO2 Sodium Potassium Chloride Carbon Dioxide BUN Creatinine 0.5 L Glucose 141 H POC Glucose 173 H 272 H Lactic Acid Calcium 8.2 L Phosphorus Total Bilirubin AST 43 H ALT Total Creatine Kinase CK-MB (CK-2) Troponin T Total Protein 6.1 L Albumin 2.2 L HDL Cholesterol Salicylates Acetaminophen Crossmatch Allied health notes reviewed: nursing
[2018-11-02] MEDS: PERCOCET 5/325 PO PRN ×2 (14:01→20:30)
[2018-11-02] MEDS: celeXA PO SCH (17:22)
[2018-11-02] MEDS: LOPRESSOR PO SCH (21:46)
[2018-11-03] MEDS: DUONEB *Not for PRN Use IH SCH ×4 (05:07→20:41)
[2018-11-03 05:12] LABS: Hematocrit 29.2 % (35.5-45.6); Hemoglobin 9.8 gm/dl (11.8-15.2); Mean Corpuscular HGB Conc 34 % (32-34); Mean Corpuscular Volume 91 fl (84-94); Platelet Count 280 K/mm3 (140-440)
[2018-11-03 05:32] LABS: Alanine Aminotransferase 22 units/L (7-56); Albumin 2.3 g/dL (3.9-5); BUN/Creatinine Ratio 28; Blood Urea Nitrogen 14 mg/dL (9-20); Calcium 8.9 mg/dL (8.4-10.2); Hemolysis Index 4
[2018-11-03] MEDS: HumuLIN R SUB-Q SCH ×4 (08:33→22:20)
--- NOTE | 2018-11-03 09:39 | Progress Note ---
Assessment and Plan s/p left BKA, right open thrombectomy and aortic stenting and bilateral common iliac artery stenting but right EIA occluded requiring another open thrombectomy and stenting of the right iliac system. 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 Witnessed seizure en route. Acute kidney injury. Leukocytosis. Hypercapnia. Hyperkalemia. Metabolic acidosis. Lactic acidosis. Non-ST elevation myocardial infarction. Elevated serum transaminases. Pain management Therapeutic anticoagulation PT/OT/Mobility Falls precautions Optimize nutrition Discharge planning, discussed with Dr. melissa--awaiting placement All other care as documented below - continue bronchodilators with pulmonary hygiene per RT - continue to wean supplemental oxygen to keep O2 sats 88-90% - PRN ABGs/CXR - Continue cardioprotective measures -Continue with secondary stroke prophylaxis - Replete electrolytes as indicated - Follow cultures and adjust antibiotics for ID/CALEB (Deescalate as indicated) - Avoid nephrotoxic agents, adjust all medications for CrCL - Aspiration precautions - Accuchecks with glycemic control. Target glucose of 140-180 mg/dL - Influenza and pneumonia vaccination per protocol Subjective Date of service: 11/03/18 Principal diagnosis: Ac hypercapnic hypoxemic Resp failure; Drug OD; AE-COPD; NINOSKA; Seizures Interval history: Patient is seen today for: Acute hypoxemic respiratory failure,s/p mechanical ventilator support; Drug overdose; Chronic obstructive pulmonary disease ; s/p left BKA for critical limb ischemia Seen and examined at bedside; 24-hour events reviewed; nursing and respiratory care staff consulted; no adverse overnight events reported to me; Vitals, labs,medications, chart reviewed. Resting peacefully in bed. Denies any chest pain, no shortness of breath, no fevers or chills Objective Vital Signs - 12hr 11/02/18 11/02/18 11/02/18 21:46 22:00 23:00 Temperature Pulse Rate 106 H 107 H 106 H Pulse Rate [ From Monitor] Pulse Rate [ Posterior Bilateral Throughout] Respiratory 27 H 18 Rate Respiratory Rate [Posterior Bilateral Throughout] Blood Pressure 129/74 129/74 129/74 O2 Sat by Pulse 94 92 Oximetry 11/02/18 11/03/18 11/03/18 23:15 00:00 01:00 Temperature 98.9 F Pulse Rate 101 H 98 H Pulse Rate [ 96 H From Monitor] Pulse Rate [ Posterior Bilateral Throughout] Respiratory 27 H 23 Rate Respiratory Rate [Posterior Bilateral Throughout] Blood Pressure 135/78 135/78 O2 Sat by Pulse 92 94 Oximetry 11/03/18 11/03/18 11/03/18 02:00 03:00 03:49 Temperature 98.8 F Pulse Rate 86 88 Pulse Rate [ From Monitor] Pulse Rate [ Posterior Bilateral Throughout] Respiratory 22 22 Rate Respiratory Rate [Posterior Bilateral Throughout] Blood Pressure 135/78 135/78 O2 Sat by Pulse 94 92 Oximetry 11/03/18 11/03/18 11/03/18 04:00 05:00 06:00 Temperature Pulse Rate 88 99 H 92 H Pulse Rate [ 89 From Monitor] Pulse Rate [ Posterior Bilateral Throughout] Respiratory 19 14 18 Rate Respiratory Rate [Posterior Bilateral Throughout] Blood Pressure 89/47 89/47 99/57 O2 Sat by Pulse 92 93 Oximetry 11/03/18 11/03/18 11/03/18 07:00 07:28 07:36 Temperature Pulse Rate 95 H Pulse Rate [ From Monitor] Pulse Rate [ 108 H 95 H Posterior Bilateral Throughout] Respiratory 18 Rate Respiratory 22 20 Rate [Posterior Bilateral Throughout] Blood Pressure O2 Sat by Pulse 95 94 Oximetry 11/03/18 11/03/18 08:00 09:00 Temperature 97.6 F Pulse Rate 99 H 106 H Pulse Rate [ From Monitor] Pulse Rate [ Posterior Bilateral Throughout] Respiratory 16 18 Rate Respiratory Rate [Posterior Bilateral Throughout] Blood Pressure 93/54 93/54 O2 Sat by Pulse 95 91 Oximetry Constitutional: no acute distress, other (middle aged but chronically ill looking CM; Atraumatic) Eyes: non-icteric ENT: oropharynx moist Neck: supple, no lymphadenopathy, no JVD Effort: normal Ascultation: Bilateral: clear, diminished breath sounds Cardiovascular: irregular rhythm, other (No R/M) Gastrointestinal: normoactive bowel sounds, soft, non-tender, non-distended Integumentary: other (poor turgor) Extremities: no edema, other (s/p Left KBA, ischemic toes on the right with poor pedal pulses) Neurologic: normal mental status, pupils equal and round, other (Left hemiparesis, improving) Psychiatric: mood appropriate, affect normal CBC and BMP: 11/03/18 04:38 11/03/18 04:38 ABG, PT/INR, D-dimer: ABG POC ABG pH 7.393 (7.35-7.45) 10/16/18 12:51 POC ABG pCO2 48.9 (35-45) H 10/16/18 12:51 POC ABG pO2 92 (80-105) 10/16/18 12:51 POC ABG HCO3 29.8 (22-26 mml/L) 10/16/18 12:51 POC ABG Total CO2 31 (23-27mmol/L) 10/16/18 12:51 POC ABG O2 Sat 97 10/16/18 12:51 PT/INR, D-dimer PT 13.9 Sec. (12.2-14.9) 10/29/18 07:11 INR 1.01 (0.87-1.13) 10/29/18 07:11 Abnormal lab findings: Abnormal Labs 10/11/18 10/11/18 10/11/18 00:16 00:16 00:16 WBC 20.1 H RBC Hgb Hct MCV 98 H MCHC RDW 15.4 H Plt Count Lymph % (Auto) [place] % (Auto) [place] # Seg Neutrophils % Seg Neuts % (Manual) Lymphocytes % (Manual) 5.0 L Monocytes % (Manual) 25.0 H Seg Neutrophils # Seg Neutrophils # Man 9.2 H Lymphocytes # (Manual) 1.0 L Monocytes # (Manual) 5.0 H APTT Heparin Anti-Xa Level POC ABG pH POC ABG pCO2 POC ABG pO2 Sodium Potassium 5.8 H Chloride Carbon Dioxide 17 L BUN Creatinine 2.2 H Glucose 348 H POC Glucose Lactic Acid 13.70 H* Calcium 7.7 L Phosphorus Total Bilirubin 1.50 H AST 179 H ALT 110 H Total Creatine Kinase 324 H CK-MB (CK-2) Troponin T 0.257 H* Total Protein 5.9 L Albumin 2.9 L HDL Cholesterol 19 L Salicylates Acetaminophen Crossmatch 10/11/18 10/11/18 10/11/18 00:16 00:16 01:21 WBC RBC Hgb Hct MCV MCHC RDW Plt Count Lymph % (Auto) [place] % (Auto) [place] # Seg Neutrophils % Seg Neuts % (Manual) Lymphocytes % (Manual) Monocytes % (Manual) Seg Neutrophils # Seg Neutrophils # Man Lymphocytes # (Manual) Monocytes # (Manual) APTT Heparin Anti-Xa Level POC ABG pH 7.110 L POC ABG pCO2 50.3 H POC ABG pO2 65 L Sodium Potassium Chloride Carbon Dioxide BUN Creatinine Glucose POC Glucose Lactic Acid Calcium Phosphorus Total Bilirubin AST ALT Total Creatine Kinase CK-MB (CK-2) Troponin T Total Protein Albumin HDL Cholesterol Salicylates < 0.3 L Acetaminophen < 5.0 L Crossmatch 10/11/18 10/11/18 10/11/18 01:22 03:27 04:14 WBC RBC Hgb Hct MCV MCHC RDW Plt Count Lymph % (Auto) [place] % (Auto) [place] # Seg Neutrophils % Seg Neuts % (Manual) Lymphocytes % (Manual) Monocytes % (Manual) Seg Neutrophils # Seg Neutrophils # Man Lymphocytes # (Manual) Monocytes # (Manual) APTT Heparin Anti-Xa Level POC ABG pH POC ABG pCO2 POC ABG pO2 Sodium Potassium Chloride Carbon Dioxide BUN Creatinine Glucose POC Glucose Lactic Acid 8.50 H* 4.10 H* Calcium Phosphorus 4.90 H Total Bilirubin AST ALT Total Creatine Kinase CK-MB (CK-2) Troponin T Total Protein Albumin HDL Cholesterol Salicylates Acetaminophen Crossmatch 10/11/18 10/11/18 10/11/18 04:14 04:14 04:14 WBC RBC Hgb Hct MCV MCHC RDW Plt Count Lymph % (Auto) [place] % (Auto) [place] # Seg Neutrophils % Seg Neuts % (Manual) Lymphocytes % (Manual) Monocytes % (Manual) Seg Neutrophils # Seg Neutrophils # Man Lymphocytes # (Manual) Monocytes # (Manual) APTT Heparin Anti-Xa Level POC ABG pH POC ABG pCO2 POC ABG pO2 Sodium Potassium 5.6 H Chloride Carbon Dioxide 19 L BUN Creatinine 1.6 H Glucose 329 H POC Glucose 328 H Lactic Acid Calcium 7.3 L Phosphorus Total Bilirubin AST ALT Total Creatine Kinase CK-MB (CK-2) Troponin T 1.130 H* D Total Protein Albumin HDL Cholesterol Salicylates Acetaminophen Crossmatch 10/11/18 10/11/18 10/11/18 05:10 05:32 05:58 WBC RBC Hgb Hct MCV MCHC RDW Plt Count Lymph % (Auto) [place] % (Auto) [place] # Seg Neutrophils % Seg Neuts % (Manual) Lymphocytes % (Manual) Monocytes % (Manual) Seg Neutrophils # Seg Neutrophils # Man Lymphocytes # (Manual) Monocytes # (Manual) APTT Heparin Anti-Xa Level POC ABG pH 7.259 L POC ABG pCO2 45.6 H POC ABG pO2 Sodium Potassium Chloride 108.6 H Carbon Dioxide 20 L BUN Creatinine 1.8 H Glucose 269 H POC Glucose 273 H Lactic Acid Calcium 7.0 L Phosphorus Total Bilirubin AST ALT Total Creatine Kinase CK-MB (CK-2) Troponin T Total Protein Albumin HDL Cholesterol Salicylates Acetaminophen Crossmatch 10/11/18 10/11/18 10/11/18 05:58 06:39 07:00 WBC RBC Hgb Hct MCV MCHC RDW Plt Count Lymph % (Auto) [place] % (Auto) [place] # Seg Neutrophils % Seg Neuts % (Manual) Lymphocytes % (Manual) Monocytes % (Manual) Seg Neutrophils # Seg Neutrophils # Man Lymphocytes # (Manual) Monocytes # (Manual) APTT Heparin Anti-Xa Level POC ABG pH POC ABG pCO2 POC ABG pO2 Sodium Potassium Chloride Carbon Dioxide BUN Creatinine Glucose POC Glucose 247 H Lactic Acid 3.20 H* 3.30 H* Calcium Phosphorus Total Bilirubin AST ALT Total Creatine Kinase CK-MB (CK-2) Troponin T Total Protein Albumin HDL Cholesterol Salicylates Acetaminophen Crossmatch 10/11/18 10/11/18 10/11/18 07:00 07:30 07:36 WBC RBC Hgb Hct MCV MCHC RDW Plt Count Lymph % (Auto) [place] % (Auto) [place] # Seg Neutrophils % Seg Neuts % (Manual) Lymphocytes % (Manual) Monocytes % (Manual) Seg Neutrophils # Seg Neutrophils # Man Lymphocytes # (Manual) Monocytes # (Manual) APTT Heparin Anti-Xa Level POC ABG pH POC ABG pCO2 POC ABG pO2 Sodium 146 H Potassium Chloride 112.1 H Carbon Dioxide 21 L BUN Creatinine 1.6 H Glucose 218 H POC Glucose Lactic Acid 3.20 H* Calcium 7.0 L Phosphorus Total Bilirubin AST ALT Total Creatine Kinase CK-MB (CK-2) Troponin T 1.020 H* Total Protein Albumin HDL Cholesterol Salicylates Acetaminophen Crossmatch 10/11/18 10/11/18 10/11/18 07:43 08:29 08:29 WBC RBC Hgb 16.2 H Hct 49.9 H D MCV MCHC RDW Plt Count Lymph % (Auto) [place] % (Auto) [place] # Seg Neutrophils % Seg Neuts % (Manual) Lymphocytes % (Manual) Monocytes % (Manual) Seg Neutrophils # Seg Neutrophils # Man Lymphocytes # (Manual) Monocytes # (Manual) APTT Heparin Anti-Xa Level POC ABG pH POC ABG pCO2 POC ABG pO2 Sodium Potassium Chloride Carbon Dioxide BUN Creatinine Glucose POC Glucose 174 H Lactic Acid 3.90 H* Calcium Phosphorus Total Bilirubin AST ALT Total Creatine Kinase CK-MB (CK-2) Troponin T Total Protein Albumin HDL Cholesterol Salicylates Acetaminophen Crossmatch 10/11/18 10/11/18 10/11/18 08:29 08:42 11:05 WBC RBC Hgb Hct MCV MCHC RDW Plt Count Lymph % (Auto) [place] % (Auto) [place] # Seg Neutrophils % Seg Neuts % (Manual) Lymphocytes % (Manual) Monocytes % (Manual) Seg Neutrophils # Seg Neutrophils # Man Lymphocytes # (Manual) Monocytes # (Manual) APTT 24.1 L Heparin Anti-Xa Level POC ABG pH POC ABG pCO2 POC ABG pO2 Sodium 147 H Potassium Chloride 113.3 H Carbon Dioxide 21 L BUN Creatinine 1.7 H Glucose 119 H POC Glucose 164 H Lactic Acid Calcium 7.7 L Phosphorus Total Bilirubin AST ALT Total Creatine Kinase CK-MB (CK-2) Troponin T Total Protein Albumin HDL Cholesterol Salicylates Acetaminophen Crossmatch 10/11/18 10/11/18 10/11/18 11:05 11:06 12:30 WBC RBC Hgb Hct MCV MCHC RDW Plt Count Lymph % (Auto) [place] % (Auto) [place] # Seg Neutrophils % Seg Neuts % (Manual) Lymphocytes % (Manual) Monocytes % (Manual) Seg Neutrophils # Seg Neutrophils # Man Lymphocytes # (Manual) Monocytes # (Manual) APTT Heparin Anti-Xa Level POC ABG pH POC ABG pCO2 POC ABG pO2 Sodium 148 H Potassium Chloride 113.4 H Carbon Dioxide 21 L BUN Creatinine 1.6 H Glucose 119 H POC Glucose 116 H Lactic Acid 3.20 H* Calcium 7.5 L Phosphorus Total Bilirubin AST ALT Total Creatine Kinase CK-MB (CK-2) Troponin T Total Protein Albumin HDL Cholesterol Salicylates Acetaminophen Crossmatch 10/11/18 10/11/18 10/11/18 12:30 13:16 13:25 WBC RBC Hgb Hct MCV MCHC RDW Plt Count Lymph % (Auto) [place] % (Auto) [place] # Seg Neutrophils % Seg Neuts % (Manual) Lymphocytes % (Manual) Monocytes % (Manual) Seg Neutrophils # Seg Neutrophils # Man Lymphocytes # (Manual) Monocytes # (Manual) APTT Heparin Anti-Xa Level POC ABG pH 7.247 L POC ABG pCO2 48.4 H POC ABG pO2 Sodium Potassium Chloride Carbon Dioxide BUN Creatinine Glucose POC Glucose 112 H Lactic Acid 2.70 H* Calcium Phosphorus Total Bilirubin AST ALT Total Creatine Kinase CK-MB (CK-2) Troponin T Total Protein Albumin HDL Cholesterol Salicylates Acetaminophen Crossmatch 10/11/18 10/11/18 10/11/18 14:41 15:27 16:13 WBC RBC Hgb Hct MCV MCHC RDW Plt Count Lymph % (Auto) [place] % (Auto) [place] # Seg Neutrophils % Seg Neuts % (Manual) Lymphocytes % (Manual) Monocytes % (Manual) Seg Neutrophils # Seg Neutrophils # Man Lymphocytes # (Manual) Monocytes # (Manual) APTT Heparin Anti-Xa Level POC ABG pH POC ABG pCO2 POC ABG pO2 Sodium Potassium Chloride Carbon Dioxide BUN Creatinine Glucose POC Glucose 127 H 141 H 134 H Lactic Acid Calcium Phosphorus Total Bilirubin AST ALT Total Creatine Kinase CK-MB (CK-2) Troponin T Total Protein Albumin HDL Cholesterol Salicylates Acetaminophen Crossmatch 10/11/18 10/11/18 10/11/18 17:18 18:23 19:38 WBC RBC Hgb Hct MCV MCHC RDW Plt Count Lymph % (Auto) [place] % (Auto) [place] # Seg Neutrophils % Seg Neuts % (Manual) Lymphocytes % (Manual) Monocytes % (Manual) Seg Neutrophils # Seg Neutrophils # Man Lymphocytes # (Manual) Monocytes # (Manual) APTT Heparin Anti-Xa Level POC ABG pH POC ABG pCO2 POC ABG pO2 Sodium 148 H Potassium Chloride 112.7 H Carbon Dioxide BUN 23 H Creatinine Glucose 143 H POC Glucose 132 H 129 H Lactic Acid Calcium 7.9 L Phosphorus Total Bilirubin AST ALT Total Creatine Kinase CK-MB (CK-2) Troponin T Total Protein Albumin HDL Cholesterol Salicylates Acetaminophen Crossmatch 10/11/18 10/11/18 10/11/18 20:19 20:36 21:01 WBC RBC Hgb Hct MCV MCHC RDW Plt Count Lymph % (Auto) [place] % (Auto) [place] # Seg Neutrophils % Seg Neuts % (Manual) Lymphocytes % (Manual) Monocytes % (Manual) Seg Neutrophils # Seg Neutrophils # Man Lymphocytes # (Manual) Monocytes # (Manual) APTT Heparin Anti-Xa Level POC ABG pH 7.281 L POC ABG pCO2 POC ABG pO2 Sodium Potassium Chloride Carbon Dioxide BUN Creatinine Glucose POC Glucose 129 H 151 H Lactic Acid Calcium Phosphorus Total Bilirubin AST ALT Total Creatine Kinase CK-MB (CK-2) Troponin T Total Protein Albumin HDL Cholesterol Salicylates Acetaminophen Crossmatch 10/11/18 10/11/18 10/12/18 22:04 23:15 01:18 WBC RBC Hgb Hct MCV MCHC RDW Plt Count Lymph % (Auto) [place] % (Auto) [place] # Seg Neutrophils % Seg Neuts % (Manual) Lymphocytes % (Manual) Monocytes % (Manual) Seg Neutrophils # Seg Neutrophils # Man Lymphocytes # (Manual) Monocytes # (Manual) APTT Heparin Anti-Xa Level POC ABG pH POC ABG pCO2 POC ABG pO2 Sodium Potassium Chloride Carbon Dioxide BUN Creatinine Glucose POC Glucose 147 H 143 H 158 H Lactic Acid Calcium Phosphorus Total Bilirubin AST ALT Total Creatine Kinase CK-MB (CK-2) Troponin T Total Protein Albumin HDL Cholesterol Salicylates Acetaminophen Crossmatch 10/12/18 10/12/18 10/12/18 02:13 03:18 04:04 WBC RBC Hgb Hct MCV MCHC RDW Plt Count Lymph % (Auto) [place] % (Auto) [place] # Seg Neutrophils % Seg Neuts % (Manual) Lymphocytes % (Manual) Monocytes % (Manual) Seg Neutrophils # Seg Neutrophils # Man Lymphocytes # (Manual) Monocytes # (Manual) APTT Heparin Anti-Xa Level POC ABG pH POC ABG pCO2 POC ABG pO2 Sodium 147 H Potassium Chloride 111.1 H Carbon Dioxide BUN 30 H Creatinine 2.0 H Glucose 154 H POC Glucose 148 H 142 H Lactic Acid Calcium 8.1 L Phosphorus Total Bilirubin AST 269 H ALT 204 H Total Creatine Kinase 3647 H CK-MB (CK-2) 48.3 H Troponin T 2.230 H* D Total Protein 5.8 L Albumin 2.6 L HDL Cholesterol Salicylates Acetaminophen Crossmatch 10/12/18 10/12/18 10/12/18 04:04 04:08 04:19 WBC 24.4 H RBC Hgb Hct MCV MCHC RDW Plt Count Lymph % (Auto) [place] % (Auto) [place] # Seg Neutrophils % Seg Neuts % (Manual) 32.0 L Lymphocytes % (Manual) Monocytes % (Manual) 8.0 H Seg Neutrophils # Seg Neutrophils # Man 7.8 H Lymphocytes # (Manual) Monocytes # (Manual) 2.0 H APTT Heparin Anti-Xa Level POC ABG pH 7.317 L POC ABG pCO2 49.3 H POC ABG pO2 Sodium Potassium Chloride Carbon Dioxide BUN Creatinine Glucose POC Glucose 143 H Lactic Acid Calcium Phosphorus Total Bilirubin AST ALT Total Creatine Kinase CK-MB (CK-2) Troponin T Total Protein Albumin HDL Cholesterol Salicylates Acetaminophen Crossmatch 10/12/18 10/12/18 10/12/18 05:29 06:52 08:09 WBC RBC Hgb Hct MCV MCHC RDW Plt Count Lymph % (Auto) [place] % (Auto) [place] # Seg Neutrophils % Seg Neuts % (Manual) Lymphocytes % (Manual) Monocytes % (Manual) Seg Neutrophils # Seg Neutrophils # Man Lymphocytes # (Manual) Monocytes # (Manual) APTT Heparin Anti-Xa Level POC ABG pH 7.322 L POC ABG pCO2 46.5 H POC ABG pO2 Sodium Potassium Chloride Carbon Dioxide BUN Creatinine Glucose POC Glucose 196 H 226 H Lactic Acid Calcium Phosphorus Total Bilirubin AST ALT Total Creatine Kinase CK-MB (CK-2) Troponin T Total Protein Albumin HDL Cholesterol Salicylates Acetaminophen Crossmatch 10/12/18 10/12/18 10/12/18 08:38 10:03 15:50 WBC RBC Hgb Hct MCV MCHC RDW Plt Count Lymph % (Auto) [place] % (Auto) [place] # Seg Neutrophils % Seg Neuts % (Manual) Lymphocytes % (Manual) Monocytes % (Manual) Seg Neutrophils # Seg Neutrophils # Man Lymphocytes # (Manual) Monocytes # (Manual) APTT Heparin Anti-Xa Level POC ABG pH POC ABG pCO2 POC ABG pO2 Sodium Potassium Chloride Carbon Dioxide BUN Creatinine Glucose POC Glucose 138 H 148 H 221 H Lactic Acid Calcium Phosphorus Total Bilirubin AST ALT Total Creatine Kinase CK-MB (CK-2) Troponin T Total Protein Albumin HDL Cholesterol Salicylates Acetaminophen Crossmatch 10/12/18 10/12/18 10/12/18 18:39 20:56 21:34 WBC RBC Hgb Hct MCV MCHC RDW Plt Count Lymph % (Auto) [place] % (Auto) [place] # Seg Neutrophils % Seg Neuts % (Manual) Lymphocytes % (Manual) Monocytes % (Manual) Seg Neutrophils # Seg Neutrophils # Man Lymphocytes # (Manual) Monocytes # (Manual) APTT Heparin Anti-Xa Level POC ABG pH 7.336 L POC ABG pCO2 46.0 H POC ABG pO2 Sodium Potassium Chloride Carbon Dioxide BUN Creatinine Glucose POC Glucose 255 H 260 H Lactic Acid Calcium Phosphorus Total Bilirubin AST ALT Total Creatine Kinase CK-MB (CK-2) Troponin T Total Protein Albumin HDL Cholesterol Salicylates Acetaminophen Crossmatch 10/13/18 10/13/18 10/13/18 02:29 05:09 05:40 WBC 17.0 H RBC Hgb Hct MCV MCHC RDW Plt Count Lymph % (Auto) [place] % (Auto) 9.2 H [place] # 1.6 H Seg Neutrophils % 76.2 H Seg Neuts % (Manual) Lymphocytes % (Manual) Monocytes % (Manual) Seg Neutrophils # 12.9 H Seg Neutrophils # Man Lymphocytes # (Manual) Monocytes # (Manual) APTT Heparin Anti-Xa Level POC ABG pH POC ABG pCO2 POC ABG pO2 Sodium Potassium Chloride Carbon Dioxide BUN Creatinine Glucose POC Glucose 216 H 249 H Lactic Acid Calcium Phosphorus Total Bilirubin AST ALT Total Creatine Kinase CK-MB (CK-2) Troponin T Total Protein Albumin HDL Cholesterol Salicylates Acetaminophen Crossmatch 10/13/18 10/13/18 10/13/18 05:40 05:40 09:46 WBC RBC Hgb Hct MCV MCHC RDW Plt Count Lymph % (Auto) [place] % (Auto) [place] # Seg Neutrophils % Seg Neuts % (Manual) Lymphocytes % (Manual) Monocytes % (Manual) Seg Neutrophils # Seg Neutrophils # Man Lymphocytes # (Manual) Monocytes # (Manual) APTT Heparin Anti-Xa Level POC ABG pH POC ABG pCO2 POC ABG pO2 Sodium 146 H Potassium Chloride 109.8 H Carbon Dioxide BUN 35 H Creatinine Glucose 245 H POC Glucose 235 H Lactic Acid Calcium 7.9 L Phosphorus Total Bilirubin AST ALT Total Creatine Kinase CK-MB (CK-2) Troponin T 0.952 H* D Total Protein Albumin HDL Cholesterol Salicylates Acetaminophen Crossmatch 10/13/18 10/13/18 10/13/18 13:58 16:15 17:30 WBC RBC Hgb Hct MCV MCHC RDW Plt Count Lymph % (Auto) [place] % (Auto) [place] # Seg Neutrophils % Seg Neuts % (Manual) Lymphocytes % (Manual) Monocytes % (Manual) Seg Neutrophils # Seg Neutrophils # Man Lymphocytes # (Manual) Monocytes # (Manual) APTT Heparin Anti-Xa Level POC ABG pH POC ABG pCO2 51.2 H POC ABG pO2 Sodium Potassium Chloride Carbon Dioxide BUN Creatinine Glucose POC Glucose 139 H Lactic Acid Calcium Phosphorus Total Bilirubin AST ALT Total Creatine Kinase CK-MB (CK-2) Troponin T 0.816 H* Total Protein Albumin HDL Cholesterol Salicylates Acetaminophen Crossmatch 10/13/18 10/14/18 10/14/18 21:25 01:49 04:52 WBC RBC Hgb Hct MCV MCHC RDW Plt Count Lymph % (Auto) [place] % (Auto) [place] # Seg Neutrophils % Seg Neuts % (Manual) Lymphocytes % (Manual) Monocytes % (Manual) Seg Neutrophils # Seg Neutrophils # Man Lymphocytes # (Manual) Monocytes # (Manual) APTT Heparin Anti-Xa Level POC ABG pH POC ABG pCO2 56.0 H POC ABG pO2 Sodium Potassium Chloride Carbon Dioxide BUN Creatinine Glucose POC Glucose 205 H 166 H Lactic Acid Calcium Phosphorus Total Bilirubin AST ALT Total Creatine Kinase CK-MB (CK-2) Troponin T Total Protein Albumin HDL Cholesterol Salicylates Acetaminophen Crossmatch 10/14/18 10/14/18 10/14/18 05:32 09:45 09:45 WBC RBC Hgb 11.4 L Hct 34.5 L MCV MCHC RDW Plt Count 139 L Lymph % (Auto) [place] % (Auto) [place] # Seg Neutrophils % Seg Neuts % (Manual) Lymphocytes % (Manual) Monocytes % (Manual) Seg Neutrophils # Seg Neutrophils # Man Lymphocytes # (Manual) Monocytes # (Manual) APTT Heparin Anti-Xa Level POC ABG pH POC ABG pCO2 POC ABG pO2 Sodium 148 H Potassium Chloride 107.3 H Carbon Dioxide 34 H D BUN Creatinine 0.7 L D Glucose 191 H POC Glucose 164 H Lactic Acid Calcium 7.3 L Phosphorus Total Bilirubin AST 110 H ALT 91 H Total Creatine Kinase CK-MB (CK-2) Troponin T Total Protein 4.9 L Albumin 2.0 L HDL Cholesterol Salicylates Acetaminophen Crossmatch 10/14/18 10/14/18 10/14/18 10:54 12:20 18:30 WBC RBC Hgb Hct MCV MCHC RDW Plt Count Lymph % (Auto) [place] % (Auto) [place] # Seg Neutrophils % Seg Neuts % (Manual) Lymphocytes % (Manual) Monocytes % (Manual) Seg Neutrophils # Seg Neutrophils # Man Lymphocytes # (Manual) Monocytes # (Manual) APTT Heparin Anti-Xa Level POC ABG pH POC ABG pCO2 POC ABG pO2 Sodium Potassium Chloride Carbon Dioxide BUN Creatinine Glucose POC Glucose 173 H 158 H 108 H Lactic Acid Calcium Phosphorus Total Bilirubin AST ALT Total Creatine Kinase CK-MB (CK-2) Troponin T Total Protein Albumin HDL Cholesterol Salicylates Acetaminophen Crossmatch 10/14/18 10/15/18 10/15/18 21:54 02:12 04:19 WBC RBC Hgb Hct MCV MCHC RDW Plt Count Lymph % (Auto) [place] % (Auto) [place] # Seg Neutrophils % Seg Neuts % (Manual) Lymphocytes % (Manual) Monocytes % (Manual) Seg Neutrophils # Seg Neutrophils # Man Lymphocytes # (Manual) Monocytes # (Manual) APTT Heparin Anti-Xa Level POC ABG pH 7.491 H POC ABG pCO2 45.1 H POC ABG pO2 Sodium Potassium Chloride Carbon Dioxide BUN Creatinine Glucose POC Glucose 110 H 164 H Lactic Acid Calcium Phosphorus Total Bilirubin AST ALT Total Creatine Kinase CK-MB (CK-2) Troponin T Total Protein Albumin HDL Cholesterol Salicylates Acetaminophen Crossmatch 10/15/18 10/15/18 10/15/18 04:55 05:43 06:20 WBC RBC Hgb 11.7 L Hct 34.7 L MCV MCHC RDW Plt Count Lymph % (Auto) [place] % (Auto) [place] # Seg Neutrophils % Seg Neuts % (Manual) Lymphocytes % (Manual) Monocytes % (Manual) Seg Neutrophils # Seg Neutrophils # Man Lymphocytes # (Manual) Monocytes # (Manual) APTT Heparin Anti-Xa Level POC ABG pH POC ABG pCO2 47.3 H POC ABG pO2 78 L Sodium Potassium Chloride Carbon Dioxide BUN Creatinine Glucose POC Glucose 250 H Lactic Acid Calcium Phosphorus Total Bilirubin AST ALT Total Creatine Kinase CK-MB (CK-2) Troponin T Total Protein Albumin HDL Cholesterol Salicylates Acetaminophen Crossmatch 10/15/18 10/15/18 10/15/18 12:00 12:00 12:11 WBC RBC Hgb 11.5 L Hct 34.0 L MCV MCHC RDW Plt Count Lymph % (Auto) [place] % (Auto) [place] # Seg Neutrophils % Seg Neuts % (Manual) Lymphocytes % (Manual) Monocytes % (Manual) Seg Neutrophils # Seg Neutrophils # Man Lymphocytes # (Manual) Monocytes # (Manual) APTT Heparin Anti-Xa Level POC ABG pH POC ABG pCO2 POC ABG pO2 Sodium 147 H Potassium Chloride 108.5 H Carbon Dioxide BUN Creatinine 0.7 L Glucose 209 H POC Glucose 197 H Lactic Acid Calcium 7.3 L Phosphorus Total Bilirubin AST ALT Total Creatine Kinase CK-MB (CK-2) Troponin T Total Protein Albumin HDL Cholesterol Salicylates Acetaminophen Crossmatch 10/15/18 10/15/18 10/15/18 15:48 18:34 21:29 WBC RBC Hgb Hct MCV MCHC RDW Plt Count Lymph % (Auto) [place] % (Auto) [place] # Seg Neutrophils % Seg Neuts % (Manual) Lymphocytes % (Manual) Monocytes % (Manual) Seg Neutrophils # Seg Neutrophils # Man Lymphocytes # (Manual) Monocytes # (Manual) APTT Heparin Anti-Xa Level POC ABG pH POC ABG pCO2 POC ABG pO2 Sodium Potassium Chloride Carbon Dioxide BUN Creatinine Glucose POC Glucose 220 H 249 H 209 H Lactic Acid Calcium Phosphorus Total Bilirubin AST ALT Total Creatine Kinase CK-MB (CK-2) Troponin T Total Protein Albumin HDL Cholesterol Salicylates Acetaminophen Crossmatch 10/16/18 10/16/18 10/16/18 02:16 03:50 05:57 WBC RBC Hgb Hct MCV MCHC RDW Plt Count Lymph % (Auto) [place] % (Auto) [place] # Seg Neutrophils % Seg Neuts % (Manual) Lymphocytes % (Manual) Monocytes % (Manual) Seg Neutrophils # Seg Neutrophils # Man Lymphocytes # (Manual) Monocytes # (Manual) APTT Heparin Anti-Xa Level POC ABG pH POC ABG pCO2 55.8 H POC ABG pO2 Sodium Potassium Chloride Carbon Dioxide BUN Creatinine Glucose POC Glucose 110 H 209 H Lactic Acid Calcium Phosphorus Total Bilirubin AST ALT Total Creatine Kinase CK-MB (CK-2) Troponin T Total Protein Albumin HDL Cholesterol Salicylates Acetaminophen Crossmatch 10/16/18 10/16/18 10/16/18 10:51 12:51 15:01 WBC RBC Hgb Hct MCV MCHC RDW Plt Count Lymph % (Auto) [place] % (Auto) [place] # Seg Neutrophils % Seg Neuts % (Manual) Lymphocytes % (Manual) Monocytes % (Manual) Seg Neutrophils # Seg Neutrophils # Man Lymphocytes # (Manual) Monocytes # (Manual) APTT Heparin Anti-Xa Level POC ABG pH POC ABG pCO2 48.9 H POC ABG pO2 Sodium Potassium Chloride Carbon Dioxide BUN Creatinine Glucose POC Glucose 198 H 196 H Lactic Acid Calcium Phosphorus Total Bilirubin AST ALT Total Creatine Kinase CK-MB (CK-2) Troponin T Total Protein Albumin HDL Cholesterol Salicylates Acetaminophen Crossmatch 10/16/18 10/16/18 10/17/18 17:34 21:59 02:17 WBC RBC Hgb Hct MCV MCHC RDW Plt Count Lymph % (Auto) [place] % (Auto) [place] # Seg Neutrophils % Seg Neuts % (Manual) Lymphocytes % (Manual) Monocytes % (Manual) Seg Neutrophils # Seg Neutrophils # Man Lymphocytes # (Manual) Monocytes # (Manual) APTT Heparin Anti-Xa Level POC ABG pH POC ABG pCO2 POC ABG pO2 Sodium Potassium Chloride Carbon Dioxide BUN Creatinine Glucose POC Glucose 179 H 139 H 135 H Lactic Acid Calcium Phosphorus Total Bilirubin AST ALT Total Creatine Kinase CK-MB (CK-2) Troponin T Total Protein Albumin HDL Cholesterol Salicylates Acetaminophen Crossmatch 10/17/18 10/17/18 10/17/18 05:40 05:47 10:18 WBC RBC Hgb 11.3 L Hct 33.2 L MCV MCHC RDW Plt Count Lymph % (Auto) [place] % (Auto) [place] # Seg Neutrophils % Seg Neuts % (Manual) Lymphocytes % (Manual) Monocytes % (Manual) Seg Neutrophils # Seg Neutrophils # Man Lymphocytes # (Manual) Monocytes # (Manual) APTT Heparin Anti-Xa Level POC ABG pH POC ABG pCO2 POC ABG pO2 Sodium Potassium Chloride Carbon Dioxide BUN Creatinine Glucose POC Glucose 125 H 139 H Lactic Acid Calcium Phosphorus Total Bilirubin AST ALT Total Creatine Kinase CK-MB (CK-2) Troponin T Total Protein Albumin HDL Cholesterol Salicylates Acetaminophen Crossmatch 10/17/18 10/18/18 10/18/18 23:11 08:49 11:31 WBC RBC Hgb Hct MCV MCHC RDW Plt Count Lymph % (Auto) [place] % (Auto) [place] # Seg Neutrophils % Seg Neuts % (Manual) Lymphocytes % (Manual) Monocytes % (Manual) Seg Neutrophils # Seg Neutrophils # Man Lymphocytes # (Manual) Monocytes # (Manual) APTT Heparin Anti-Xa Level POC ABG pH POC ABG pCO2 POC ABG pO2 Sodium Potassium Chloride Carbon Dioxide BUN Creatinine Glucose POC Glucose 165 H 125 H 182 H Lactic Acid Calcium Phosphorus Total Bilirubin AST ALT Total Creatine Kinase CK-MB (CK-2) Troponin T Total Protein Albumin HDL Cholesterol Salicylates Acetaminophen Crossmatch 10/18/18 10/18/18 10/19/18 16:12 21:02 00:28 WBC RBC Hgb 11.4 L Hct 33.6 L MCV MCHC RDW Plt Count Lymph % (Auto) [place] % (Auto) 14.0 H [place] # 1.2 H Seg Neutrophils % Seg Neuts % (Manual) Lymphocytes % (Manual) Monocytes % (Manual) Seg Neutrophils # Seg Neutrophils # Man Lymphocytes # (Manual) Monocytes # (Manual) APTT Heparin Anti-Xa Level POC ABG pH POC ABG pCO2 POC ABG pO2 Sodium Potassium Chloride Carbon Dioxide BUN Creatinine Glucose POC Glucose 168 H 324 H Lactic Acid Calcium Phosphorus Total Bilirubin AST ALT Total Creatine Kinase CK-MB (CK-2) Troponin T Total Protein Albumin HDL Cholesterol Salicylates Acetaminophen Crossmatch 10/19/18 10/19/18 10/19/18 04:57 04:57 07:32 WBC RBC Hgb 11.7 L Hct 34.0 L MCV MCHC RDW Plt Count Lymph % (Auto) [place] % (Auto) [place] # Seg Neutrophils % Seg Neuts % (Manual) Lymphocytes % (Manual) Monocytes % (Manual) Seg Neutrophils # Seg Neutrophils # Man Lymphocytes # (Manual) Monocytes # (Manual) APTT Heparin Anti-Xa Level POC ABG pH POC ABG pCO2 POC ABG pO2 Sodium Potassium 3.5 L Chloride 108.6 H Carbon Dioxide BUN Creatinine 0.6 L Glucose POC Glucose 159 H Lactic Acid Calcium 7.9 L Phosphorus Total Bilirubin AST ALT Total Creatine Kinase CK-MB (CK-2) Troponin T Total Protein Albumin HDL Cholesterol Salicylates Acetaminophen Crossmatch 10/19/18 10/19/18 10/20/18 16:25 20:59 12:04 WBC RBC Hgb Hct MCV MCHC RDW Plt Count Lymph % (Auto) [place] % (Auto) [place] # Seg Neutrophils % Seg Neuts % (Manual) Lymphocytes % (Manual) Monocytes % (Manual) Seg Neutrophils # Seg Neutrophils # Man Lymphocytes # (Manual) Monocytes # (Manual) APTT Heparin Anti-Xa Level POC ABG pH POC ABG pCO2 POC ABG pO2 Sodium Potassium Chloride Carbon Dioxide BUN Creatinine Glucose POC Glucose 134 H 110 H 338 H Lactic Acid Calcium Phosphorus Total Bilirubin AST ALT Total Creatine Kinase CK-MB (CK-2) Troponin T Total Protein Albumin HDL Cholesterol Salicylates Acetaminophen Crossmatch 10/20/18 10/20/18 10/21/18 17:55 22:07 04:59 WBC RBC Hgb 11.6 L Hct 33.9 L MCV MCHC RDW Plt Count Lymph % (Auto) [place] % (Auto) 9.7 H [place] # 0.9 H Seg Neutrophils % 70.7 H Seg Neuts % (Manual) Lymphocytes % (Manual) Monocytes % (Manual) Seg Neutrophils # Seg Neutrophils # Man Lymphocytes # (Manual) Monocytes # (Manual) APTT Heparin Anti-Xa Level POC ABG pH POC ABG pCO2 POC ABG pO2 Sodium Potassium Chloride Carbon Dioxide BUN Creatinine Glucose POC Glucose 146 H 164 H Lactic Acid Calcium Phosphorus Total Bilirubin AST ALT Total Creatine Kinase CK-MB (CK-2) Troponin T Total Protein Albumin HDL Cholesterol Salicylates Acetaminophen Crossmatch 10/21/18 10/21/18 10/21/18 04:59 07:52 11:39 WBC RBC Hgb Hct MCV MCHC RDW Plt Count Lymph % (Auto) [place] % (Auto) [place] # Seg Neutrophils % Seg Neuts % (Manual) Lymphocytes % (Manual) Monocytes % (Manual) Seg Neutrophils # Seg Neutrophils # Man Lymphocytes # (Manual) Monocytes # (Manual) APTT Heparin Anti-Xa Level POC ABG pH POC ABG pCO2 POC ABG pO2 Sodium Potassium 3.5 L Chloride 107.1 H Carbon Dioxide BUN Creatinine 0.5 L Glucose 158 H POC Glucose 142 H 194 H Lactic Acid Calcium 7.5 L Phosphorus Total Bilirubin AST ALT Total Creatine Kinase CK-MB (CK-2) Troponin T Total Protein 5.6 L Albumin 2.0 L HDL Cholesterol Salicylates Acetaminophen Crossmatch 10/21/18 10/21/18 10/22/18 17:05 20:37 05:38 WBC RBC 3.48 L Hgb 10.8 L Hct 31.7 L MCV MCHC RDW Plt Count 458 H Lymph % (Auto) [place] % (Auto) 10.5 H [place] # Seg Neutrophils % Seg Neuts % (Manual) Lymphocytes % (Manual) Monocytes % (Manual) Seg Neutrophils # Seg Neutrophils # Man Lymphocytes # (Manual) Monocytes # (Manual) APTT Heparin Anti-Xa Level POC ABG pH POC ABG pCO2 POC ABG pO2 Sodium Potassium Chloride Carbon Dioxide BUN Creatinine Glucose POC Glucose 167 H 182 H Lactic Acid Calcium Phosphorus Total Bilirubin AST ALT Total Creatine Kinase CK-MB (CK-2) Troponin T Total Protein Albumin HDL Cholesterol Salicylates Acetaminophen Crossmatch 10/22/18 10/22/18 10/22/18 05:38 07:48 12:08 WBC RBC Hgb Hct MCV MCHC RDW Plt Count Lymph % (Auto) [place] % (Auto) [place] # Seg Neutrophils % Seg Neuts % (Manual) Lymphocytes % (Manual) Monocytes % (Manual) Seg Neutrophils # Seg Neutrophils # Man Lymphocytes # (Manual) Monocytes # (Manual) APTT Heparin Anti-Xa Level POC ABG pH POC ABG pCO2 POC ABG pO2 Sodium Potassium Chloride Carbon Dioxide BUN Creatinine 0.5 L Glucose 146 H POC Glucose 130 H 167 H Lactic Acid Calcium 7.8 L Phosphorus Total Bilirubin AST 41 H ALT Total Creatine Kinase CK-MB (CK-2) Troponin T Total Protein 5.5 L Albumin 2.1 L HDL Cholesterol Salicylates Acetaminophen Crossmatch 10/22/18 10/22/18 10/23/18 16:45 21:42 04:38 WBC RBC Hgb 11.7 L Hct 34.7 L MCV MCHC RDW Plt Count 523 H Lymph % (Auto) [place] % (Auto) 8.7 H [place] # Seg Neutrophils % 71.6 H Seg Neuts % (Manual) Lymphocytes % (Manual) Monocytes % (Manual) Seg Neutrophils # Seg Neutrophils # Man Lymphocytes # (Manual) Monocytes # (Manual) APTT Heparin Anti-Xa Level POC ABG pH POC ABG pCO2 POC ABG pO2 Sodium Potassium Chloride Carbon Dioxide BUN Creatinine Glucose POC Glucose 113 H 134 H Lactic Acid Calcium Phosphorus Total Bilirubin AST ALT Total Creatine Kinase CK-MB (CK-2) Troponin T Total Protein Albumin HDL Cholesterol Salicylates Acetaminophen Crossmatch 10/23/18 10/23/18 10/23/18 04:38 07:56 11:15 WBC RBC Hgb Hct MCV MCHC RDW Plt Count Lymph % (Auto) [place] % (Auto) [place] # Seg Neutrophils % Seg Neuts % (Manual) Lymphocytes % (Manual) Monocytes % (Manual) Seg Neutrophils # Seg Neutrophils # Man Lymphocytes # (Manual) Monocytes # (Manual) APTT Heparin Anti-Xa Level POC ABG pH POC ABG pCO2 POC ABG pO2 Sodium Potassium Chloride Carbon Dioxide BUN 7 L Creatinine 0.5 L Glucose 150 H POC Glucose 123 H 212 H Lactic Acid Calcium 8.0 L Phosphorus Total Bilirubin AST 55 H ALT Total Creatine Kinase CK-MB (CK-2) Troponin T Total Protein 6.2 L Albumin 2.3 L HDL Cholesterol Salicylates Acetaminophen Crossmatch 10/23/18 10/23/18 10/24/18 16:06 22:01 05:56 WBC 11.8 H RBC 3.64 L Hgb 11.2 L Hct 33.4 L MCV MCHC RDW Plt Count 564 H Lymph % (Auto) 11.3 L [place] % (Auto) [place] # Seg Neutrophils % 80.2 H Seg Neuts % (Manual) Lymphocytes % (Manual) Monocytes % (Manual) Seg Neutrophils # 9.4 H Seg Neutrophils # Man Lymphocytes # (Manual) Monocytes # (Manual) APTT Heparin Anti-Xa Level POC ABG pH POC ABG pCO2 POC ABG pO2 Sodium Potassium Chloride Carbon Dioxide BUN Creatinine Glucose POC Glucose 152 H 235 H Lactic Acid Calcium Phosphorus Total Bilirubin AST ALT Total Creatine Kinase CK-MB (CK-2) Troponin T Total Protein Albumin HDL Cholesterol Salicylates Acetaminophen Crossmatch 10/24/18 10/24/18 10/24/18 05:56 07:52 11:58 WBC RBC Hgb Hct MCV MCHC RDW Plt Count Lymph % (Auto) [place] % (Auto) [place] # Seg Neutrophils % Seg Neuts % (Manual) Lymphocytes % (Manual) Monocytes % (Manual) Seg Neutrophils # Seg Neutrophils # Man Lymphocytes # (Manual) Monocytes # (Manual) APTT Heparin Anti-Xa Level POC ABG pH POC ABG pCO2 POC ABG pO2 Sodium Potassium Chloride Carbon Dioxide BUN Creatinine 0.5 L Glucose 175 H POC Glucose 156 H 238 H Lactic Acid Calcium 8.0 L Phosphorus Total Bilirubin AST 44 H ALT Total Creatine Kinase CK-MB (CK-2) Troponin T Total Protein 6.2 L Albumin 2.4 L HDL Cholesterol Salicylates Acetaminophen Crossmatch 10/24/18 10/24/18 10/25/18 16:20 22:13 07:53 WBC RBC Hgb Hct MCV MCHC RDW Plt Count Lymph % (Auto) [place] % (Auto) [place] # Seg Neutrophils % Seg Neuts % (Manual) Lymphocytes % (Manual) Monocytes % (Manual) Seg Neutrophils # Seg Neutrophils # Man Lymphocytes # (Manual) Monocytes # (Manual) APTT Heparin Anti-Xa Level POC ABG pH POC ABG pCO2 POC ABG pO2 Sodium Potassium Chloride Carbon Dioxide BUN Creatinine Glucose POC Glucose 60 L 261 H 211 H Lactic Acid Calcium Phosphorus Total Bilirubin AST ALT Total Creatine Kinase CK-MB (CK-2) Troponin T Total Protein Albumin HDL Cholesterol Salicylates Acetaminophen Crossmatch 10/25/18 10/25/18 10/25/18 11:03 16:02 22:45 WBC RBC Hgb Hct MCV MCHC RDW Plt Count Lymph % (Auto) [place] % (Auto) [place] # Seg Neutrophils % Seg Neuts % (Manual) Lymphocytes % (Manual) Monocytes % (Manual) Seg Neutrophils # Seg Neutrophils # Man Lymphocytes # (Manual) Monocytes # (Manual) APTT Heparin Anti-Xa Level POC ABG pH POC ABG pCO2 POC ABG pO2 Sodium Potassium Chloride Carbon Dioxide BUN Creatinine Glucose POC Glucose 137 H 186 H 140 H Lactic Acid Calcium Phosphorus Total Bilirubin AST ALT Total Creatine Kinase CK-MB (CK-2) Troponin T Total Protein Albumin HDL Cholesterol Salicylates Acetaminophen Crossmatch 10/26/18 10/26/18 10/26/18 08:13 10:08 11:28 WBC RBC Hgb Hct MCV MCHC RDW Plt Count Lymph % (Auto) [place] % (Auto) [place] # Seg Neutrophils % Seg Neuts % (Manual) Lymphocytes % (Manual) Monocytes % (Manual) Seg Neutrophils # Seg Neutrophils # Man Lymphocytes # (Manual) Monocytes # (Manual) APTT Heparin Anti-Xa Level POC ABG pH POC ABG pCO2 POC ABG pO2 Sodium Potassium Chloride Carbon Dioxide BUN Creatinine Glucose POC Glucose 144 H 110 H 201 H Lactic Acid Calcium Phosphorus Total Bilirubin AST ALT Total Creatine Kinase CK-MB (CK-2) Troponin T Total Protein Albumin HDL Cholesterol Salicylates Acetaminophen Crossmatch 10/26/18 10/26/18 10/27/18 16:36 22:29 07:34 WBC RBC Hgb Hct MCV MCHC RDW Plt Count Lymph % (Auto) [place] % (Auto) [place] # Seg Neutrophils % Seg Neuts % (Manual) Lymphocytes % (Manual) Monocytes % (Manual) Seg Neutrophils # Seg Neutrophils # Man Lymphocytes # (Manual) Monocytes # (Manual) APTT Heparin Anti-Xa Level POC ABG pH POC ABG pCO2 POC ABG pO2 Sodium Potassium Chloride Carbon Dioxide BUN Creatinine Glucose POC Glucose 147 H 302 H 182 H Lactic Acid Calcium Phosphorus Total Bilirubin AST ALT Total Creatine Kinase CK-MB (CK-2) Troponin T Total Protein Albumin HDL Cholesterol Salicylates Acetaminophen Crossmatch 10/27/18 10/27/18 10/27/18 11:57 13:33 14:55 WBC RBC Hgb Hct MCV MCHC RDW Plt Count 550 H Lymph % (Auto) [place] % (Auto) [place] # Seg Neutrophils % Seg Neuts % (Manual) Lymphocytes % (Manual) Monocytes % (Manual) Seg Neutrophils # Seg Neutrophils # Man Lymphocytes # (Manual) Monocytes # (Manual) APTT Heparin Anti-Xa Level POC ABG pH POC ABG pCO2 POC ABG pO2 Sodium Potassium Chloride Carbon Dioxide BUN Creatinine Glucose POC Glucose 209 H Lactic Acid Calcium Phosphorus Total Bilirubin AST ALT Total Creatine Kinase CK-MB (CK-2) Troponin T Total Protein Albumin HDL Cholesterol Salicylates Acetaminophen Crossmatch See Detail 10/27/18 10/27/18 10/28/18 17:09 21:45 07:45 WBC RBC Hgb Hct MCV MCHC RDW Plt Count Lymph % (Auto) [place] % (Auto) [place] # Seg Neutrophils % Seg Neuts % (Manual) Lymphocytes % (Manual) Monocytes % (Manual) Seg Neutrophils # Seg Neutrophils # Man Lymphocytes # (Manual) Monocytes # (Manual) APTT Heparin Anti-Xa Level POC ABG pH POC ABG pCO2 POC ABG pO2 Sodium Potassium Chloride Carbon Dioxide BUN Creatinine Glucose POC Glucose 233 H 136 H 201 H Lactic Acid Calcium Phosphorus Total Bilirubin AST ALT Total Creatine Kinase CK-MB (CK-2) Troponin T Total Protein Albumin HDL Cholesterol Salicylates Acetaminophen Crossmatch 10/28/18 10/28/18 10/28/18 11:17 16:34 19:51 WBC RBC Hgb Hct MCV MCHC RDW Plt Count Lymph % (Auto) [place] % (Auto) [place] # Seg Neutrophils % Seg Neuts % (Manual) Lymphocytes % (Manual) Monocytes % (Manual) Seg Neutrophils # Seg Neutrophils # Man Lymphocytes # (Manual) Monocytes # (Manual) APTT Heparin Anti-Xa Level < 0.10 L POC ABG pH POC ABG pCO2 POC ABG pO2 Sodium Potassium Chloride Carbon Dioxide BUN Creatinine Glucose POC Glucose 116 H 168 H Lactic Acid Calcium Phosphorus Total Bilirubin AST ALT Total Creatine Kinase CK-MB (CK-2) Troponin T Total Protein Albumin HDL Cholesterol Salicylates Acetaminophen Crossmatch 10/28/18 10/29/18 10/29/18 21:52 07:11 07:11 WBC RBC Hgb Hct MCV MCHC RDW Plt Count 470 H Lymph % (Auto) [place] % (Auto) [place] # Seg Neutrophils % Seg Neuts % (Manual) Lymphocytes % (Manual) Monocytes % (Manual) Seg Neutrophils # Seg Neutrophils # Man Lymphocytes # (Manual) Monocytes # (Manual) APTT Heparin Anti-Xa Level 0.13 L POC ABG pH POC ABG pCO2 POC ABG pO2 Sodium Potassium Chloride Carbon Dioxide BUN Creatinine Glucose POC Glucose 159 H Lactic Acid Calcium Phosphorus Total Bilirubin AST ALT Total Creatine Kinase CK-MB (CK-2) Troponin T Total Protein Albumin HDL Cholesterol Salicylates Acetaminophen Crossmatch 10/29/18 10/29/18 10/29/18 07:11 07:43 11:29 WBC RBC Hgb Hct MCV MCHC RDW Plt Count Lymph % (Auto) [place] % (Auto) [place] # Seg Neutrophils % Seg Neuts % (Manual) Lymphocytes % (Manual) Monocytes % (Manual) Seg Neutrophils # Seg Neutrophils # Man Lymphocytes # (Manual) Monocytes # (Manual) APTT Heparin Anti-Xa Level POC ABG pH POC ABG pCO2 POC ABG pO2 Sodium Potassium Chloride Carbon Dioxide BUN 7 L Creatinine 0.5 L Glucose 122 H POC Glucose 147 H 165 H Lactic Acid Calcium 8.2 L Phosphorus Total Bilirubin AST ALT Total Creatine Kinase CK-MB (CK-2) Troponin T Total Protein Albumin HDL Cholesterol Salicylates Acetaminophen Crossmatch 10/29/18 10/29/18 10/30/18 19:50 22:11 00:11 WBC RBC Hgb Hct MCV MCHC RDW Plt Count Lymph % (Auto) [place] % (Auto) [place] # Seg Neutrophils % Seg Neuts % (Manual) Lymphocytes % (Manual) Monocytes % (Manual) Seg Neutrophils # Seg Neutrophils # Man Lymphocytes # (Manual) Monocytes # (Manual) APTT Heparin Anti-Xa Level 0.25 L POC ABG pH POC ABG pCO2 POC ABG pO2 Sodium Potassium Chloride Carbon Dioxide BUN Creatinine Glucose POC Glucose 166 H 173 H Lactic Acid Calcium Phosphorus Total Bilirubin AST ALT Total Creatine Kinase CK-MB (CK-2) Troponin T Total Protein Albumin HDL Cholesterol Salicylates Acetaminophen Crossmatch 10/30/18 10/30/18 10/30/18 04:22 04:22 07:47 WBC 27.0 H RBC 3.16 L Hgb 10.0 L Hct 28.8 L D MCV MCHC 35 H RDW Plt Count Lymph % (Auto) [place] % (Auto) [place] # Seg Neutrophils % Seg Neuts % (Manual) Lymphocytes % (Manual) 1.5 L Monocytes % (Manual) Seg Neutrophils # Seg Neutrophils # Man 18.6 H Lymphocytes # (Manual) 0.4 L Monocytes # (Manual) APTT Heparin Anti-Xa Level POC ABG pH POC ABG pCO2 POC ABG pO2 Sodium Potassium Chloride Carbon Dioxide BUN Creatinine Glucose 224 H POC Glucose 168 H Lactic Acid Calcium 7.5 L Phosphorus Total Bilirubin AST ALT Total Creatine Kinase CK-MB (CK-2) Troponin T Total Protein Albumin HDL Cholesterol Salicylates Acetaminophen Crossmatch 10/30/18 10/30/18 10/30/18 07:55 11:20 16:41 WBC RBC Hgb Hct MCV MCHC RDW Plt Count Lymph % (Auto) [place] % (Auto) [place] # Seg Neutrophils % Seg Neuts % (Manual) Lymphocytes % (Manual) Monocytes % (Manual) Seg Neutrophils # Seg Neutrophils # Man Lymphocytes # (Manual) Monocytes # (Manual) APTT Heparin Anti-Xa Level < 0.10 L POC ABG pH POC ABG pCO2 POC ABG pO2 Sodium Potassium Chloride Carbon Dioxide BUN Creatinine Glucose POC Glucose 165 H 142 H Lactic Acid Calcium Phosphorus Total Bilirubin AST ALT Total Creatine Kinase CK-MB (CK-2) Troponin T Total Protein Albumin HDL Cholesterol Salicylates Acetaminophen Crossmatch 10/30/18 10/30/18 10/31/18 20:51 21:20 05:21 WBC RBC Hgb 9.0 L Hct 26.6 L MCV MCHC RDW Plt Count Lymph % (Auto) [place] % (Auto) [place] # Seg Neutrophils % Seg Neuts % (Manual) Lymphocytes % (Manual) Monocytes % (Manual) Seg Neutrophils # Seg Neutrophils # Man Lymphocytes # (Manual) Monocytes # (Manual) APTT Heparin Anti-Xa Level < 0.10 L POC ABG pH POC ABG pCO2 POC ABG pO2 Sodium Potassium Chloride Carbon Dioxide BUN Creatinine Glucose POC Glucose 136 H Lactic Acid Calcium Phosphorus Total Bilirubin AST ALT Total Creatine Kinase CK-MB (CK-2) Troponin T Total Protein Albumin HDL Cholesterol Salicylates Acetaminophen Crossmatch 10/31/18 10/31/18 10/31/18 08:07 10:19 12:12 WBC RBC Hgb Hct MCV MCHC RDW Plt Count Lymph % (Auto) [place] % (Auto) [place] # Seg Neutrophils % Seg Neuts % (Manual) Lymphocytes % (Manual) Monocytes % (Manual) Seg Neutrophils # Seg Neutrophils # Man Lymphocytes # (Manual) Monocytes # (Manual) APTT Heparin Anti-Xa Level POC ABG pH POC ABG pCO2 POC ABG pO2 Sodium Potassium Chloride Carbon Dioxide BUN Creatinine Glucose POC Glucose 155 H 194 H Lactic Acid Calcium Phosphorus Total Bilirubin AST ALT Total Creatine Kinase CK-MB (CK-2) Troponin T Total Protein Albumin HDL Cholesterol Salicylates Acetaminophen Crossmatch See Detail 10/31/18 10/31/18 10/31/18 16:07 16:56 21:14 WBC RBC Hgb Hct MCV MCHC RDW Plt Count Lymph % (Auto) [place] % (Auto) [place] # Seg Neutrophils % Seg Neuts % (Manual) Lymphocytes % (Manual) Monocytes % (Manual) Seg Neutrophils # Seg Neutrophils # Man Lymphocytes # (Manual) Monocytes # (Manual) APTT Heparin Anti-Xa Level 1.20 H POC ABG pH POC ABG pCO2 POC ABG pO2 Sodium Potassium Chloride Carbon Dioxide BUN Creatinine Glucose POC Glucose 354 H 234 H Lactic Acid Calcium Phosphorus Total Bilirubin AST ALT Total Creatine Kinase CK-MB (CK-2) Troponin T Total Protein Albumin HDL Cholesterol Salicylates Acetaminophen Crossmatch 11/01/18 11/01/18 11/01/18 00:52 05:52 05:52 WBC 12.5 H RBC 2.95 L Hgb 9.1 L Hct 27.4 L MCV MCHC RDW 15.3 H Plt Count Lymph % (Auto) [place] % (Auto) [place] # Seg Neutrophils % Seg Neuts % (Manual) Lymphocytes % (Manual) Monocytes % (Manual) Seg Neutrophils # Seg Neutrophils # Man Lymphocytes # (Manual) Monocytes # (Manual) APTT Heparin Anti-Xa Level 1.53 H POC ABG pH POC ABG pCO2 POC ABG pO2 Sodium Potassium Chloride Carbon Dioxide BUN Creatinine 0.5 L Glucose 169 H POC Glucose Lactic Acid Calcium 8.3 L Phosphorus Total Bilirubin AST ALT Total Creatine Kinase CK-MB (CK-2) Troponin T Total Protein 6.2 L Albumin 2.3 L HDL Cholesterol Salicylates Acetaminophen Crossmatch 11/01/18 11/01/18 11/01/18 08:17 10:57 11:38 WBC RBC Hgb Hct MCV MCHC RDW Plt Count Lymph % (Auto) [place] % (Auto) [place] # Seg Neutrophils % Seg Neuts % (Manual) Lymphocytes % (Manual) Monocytes % (Manual) Seg Neutrophils # Seg Neutrophils # Man Lymphocytes # (Manual) Monocytes # (Manual) APTT Heparin Anti-Xa Level 1.05 H POC ABG pH POC ABG pCO2 POC ABG pO2 Sodium Potassium Chloride Carbon Dioxide BUN Creatinine Glucose POC Glucose 158 H 133 H Lactic Acid Calcium Phosphorus Total Bilirubin AST ALT Total Creatine Kinase CK-MB (CK-2) Troponin T Total Protein Albumin HDL Cholesterol Salicylates Acetaminophen Crossmatch 11/01/18 11/01/18 11/02/18 17:08 21:23 04:56 WBC RBC 3.02 L Hgb 9.5 L Hct 28.0 L MCV MCHC RDW Plt Count Lymph % (Auto) [place] % (Auto) [place] # Seg Neutrophils % Seg Neuts % (Manual) Lymphocytes % (Manual) Monocytes % (Manual) Seg Neutrophils # Seg Neutrophils # Man Lymphocytes # (Manual) Monocytes # (Manual) APTT Heparin Anti-Xa Level POC ABG pH POC ABG pCO2 POC ABG pO2 Sodium Potassium Chloride Carbon Dioxide BUN Creatinine Glucose POC Glucose 156 H 213 H Lactic Acid Calcium Phosphorus Total Bilirubin AST ALT Total Creatine Kinase CK-MB (CK-2) Troponin T Total Protein Albumin HDL Cholesterol Salicylates Acetaminophen Crossmatch 11/02/18 11/02/18 11/02/18 04:56 08:38 11:23 WBC RBC Hgb Hct MCV MCHC RDW Plt Count Lymph % (Auto) [place] % (Auto) [place] # Seg Neutrophils % Seg Neuts % (Manual) Lymphocytes % (Manual) Monocytes % (Manual) Seg Neutrophils # Seg Neutrophils # Man Lymphocytes # (Manual) Monocytes # (Manual) APTT Heparin Anti-Xa Level POC ABG pH POC ABG pCO2 POC ABG pO2 Sodium Potassium Chloride Carbon Dioxide BUN Creatinine 0.5 L Glucose 141 H POC Glucose 173 H 272 H Lactic Acid Calcium 8.2 L Phosphorus Total Bilirubin AST 43 H ALT Total Creatine Kinase CK-MB (CK-2) Troponin T Total Protein 6.1 L Albumin 2.2 L HDL Cholesterol Salicylates Acetaminophen Crossmatch 11/02/18 11/03/18 11/03/18 22:16 04:38 04:38 WBC 11.6 H RBC 3.20 L Hgb 9.8 L Hct 29.2 L MCV MCHC RDW Plt Count Lymph % (Auto) [place] % (Auto) [place] # Seg Neutrophils % Seg Neuts % (Manual) Lymphocytes % (Manual) Monocytes % (Manual) Seg Neutrophils # Seg Neutrophils # Man Lymphocytes # (Manual) Monocytes # (Manual) APTT Heparin Anti-Xa Level POC ABG pH POC ABG pCO2 POC ABG pO2 Sodium 135 L Potassium Chloride Carbon Dioxide BUN Creatinine 0.5 L Glucose 160 H POC Glucose 182 H Lactic Acid Calcium Phosphorus Total Bilirubin AST 46 H ALT Total Creatine Kinase CK-MB (CK-2) Troponin T Total Protein Albumin 2.3 L HDL Cholesterol Salicylates Acetaminophen Crossmatch 11/03/18 07:52 WBC RBC Hgb Hct MCV MCHC RDW Plt Count Lymph % (Auto) [place] % (Auto) [place] # Seg Neutrophils % Seg Neuts % (Manual) Lymphocytes % (Manual) Monocytes % (Manual) Seg Neutrophils # Seg Neutrophils # Man Lymphocytes # (Manual) Monocytes # (Manual) APTT Heparin Anti-Xa Level POC ABG pH POC ABG pCO2 POC ABG pO2 Sodium Potassium Chloride Carbon Dioxide BUN Creatinine Glucose POC Glucose 180 H Lactic Acid Calcium Phosphorus Total Bilirubin AST ALT Total Creatine Kinase CK-MB (CK-2) Troponin T Total Protein Albumin HDL Cholesterol Salicylates Acetaminophen Crossmatch Allied health notes reviewed: nursing
[2018-11-03] MEDS: HALFPRIN EC PO SCH (10:44)
[2018-11-03] MEDS: OxyCONTIN PO SCH (10:45)
[2018-11-03] MEDS: ELIQUIS PO SCH ×2 (10:45→22:20)
[2018-11-03] MEDS: celeXA PO SCH (10:45)
[2018-11-03] MEDS: PEPCID PO SCH ×2 (10:45→22:20)
[2018-11-03] MEDS: LOPRESSOR PO SCH ×2 (12:30→22:21)
--- NOTE | 2018-11-03 12:47 | Progress Note ---
Assessment and Plan Assessment and plan: Patient is a 58 yo man with a history of COPD, DM, hypertension, asthma, peripheral neuropathy, chronic hepatitis C virus, panic attack. anxiety disorder, polysubstance abuse including alcohol, cocaine and heroin who presented to [facility] ED on 10/11/18 with AMS. He was diagnosis with septic shock due to pneumonia, placed on abx and vasopressors. He was also diagnosis with DKA/respiratory failure/Status epilepticus/ARF. Patient s/p left BKA, right open thrombectomy and aortic stenting and bilateral common iliac artery stenting but right EIA occluded requiring another open thrombectomy and stenting of the right iliac system. 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 followed by revascularization right leg on 10/31/18: Vascular following, input noted, started Eliquis -Acute/subacute right CVA, Initial CT head, no acute finding, 10/13/18 found to have left-sided weakness, MRI brain showed numerous acute/subacute multilobar infarcts involving the cerebrum and cerebellum including Hemorrhagic transformation of the right frontal and biparietal lobes, was Not a candidate for tPA, monitor off aspirin per teleneurology, QUIQUE ; no thrombus or shunt, Speech recommended pureed diet -Severe sepsis with shock; present on admission Probably due to LLL aspiration pneumonia, completed total 7 days of antibiotics, off vasopressors -Paroxysmal atrial fibrillation. on Eliquis Cardiology is following -LLL pneumonia: completed treatment -Acute respiratory failure with hypoxia and hypercapnia: Requiring intubation, extubated, nebs , supplemental O2 as needed -DKA, resolved: cont SSI for now, diabetic diet -Acute toxic/metabolic encephalopathy, improved -Seizure disorder; seizure precautions, no new episodes of seizure, Ativan when necessary, neurology did not recommend antiepileptic medications -Elevated troponin/NSTEMI type 2, Echocardiogram for further evaluation - Ef 25- 30%, Cardiology consulted, medical Mx for now, -Acute systolic CHF, Ef 25-30%, anti-failure medications, Cardiology is foll owing -ARF, due to ATN and vasomotor nephropathy, poa, resolved -Hyperkalemia, resolved -Abnormal LFT, Probably due to sepsis, resolving and chronic hepatitis C virus infection, Abdominal US showed no sign of cirrhosis: monitor cmp -Anemia, appears acute on chronic AOCD: monitor closely on iv heparin drip -Severe protein calorie malnutrition; nutrition supplements, Dietitian consulted -DVT prophylaxis with Eliquis and GI prophylaxis with famotidine -Tobacco abuse. Patient with a long smoking history of one pack per day or more since age 9. Patient was counseled on smoking cessation. Disposition: continue inpatient care. Vascular procedure on right leg 10/31/18 and now the right foot is warm. Possible rehab vs Subacute rehab placement==>Ph ysical therapy recommended Subacute Rehab transfer out of ICU on 11/01/18 to IMCU, now transfer out IMCU restraints renewed History Interval history: Patient was seen and examined. Follow-up on current diagnosis of PVD. No overnight events reported to me. Patient denies any chest pain, shortness breath, nausea/vomiting or severe headaches. Imaging, nursing note, chart, labs and old chart reviewed. Discussed with patient. Hospitalist Physical - Physical exam Narrative exam: Gen: severely cachectic, disable, NAD, Awake, Alert, Orientated x 2 HEENT: NCAT, EOMI, PERRL, OP Clear Neck: supple, no adenopathy, no thyromegaly, no JVD CVS/Heart: RRR, normal S1S2, pulses present weak, right foot cool to touch (Dr. Murray at bedside with me also) Chest/Lungs: diminished bs bilateral, Symmetrical chest expansion, good air entry bilaterally GI/Abdomen: soft, NTND, good bowel sounds, no guarding or rebound /Bladder: no suprapubic tenderness, no CVA or paraspinal tenderness Extermity/Skin: left bka, right toes and foot dry gangrene MSK: FROM x 4 Neuro: CN 2-12 grossly intact, no new focal deficits Psych: calm - Constitutional Vitals: Temp Pulse Resp BP Pulse Ox 97.6 F 107 H 27 H 82/58 97 11/03/18 11:47 11/03/18 11:00 11/03/18 11:00 11/03/18 11:00 11/03/18 11:00 General appearance: Present: no acute distress Results - Labs CBC & Chem 7: 11/03/18 04:38 11/03/18 04:38 Labs: Laboratory Last Values WBC 11.6 K/mm3 (4.5-11.0) H 11/03/18 04:38 RBC 3.20 M/mm3 (3.65-5.03) L 11/03/18 04:38 Hgb 9.8 gm/dl (11.8-15.2) L 11/03/18 04:38 Hct 29.2 % (35.5-45.6) L 11/03/18 04:38 MCV 91 fl (84-94) 11/03/18 04:38 MCH 31 pg (28-32) 11/03/18 04:38 MCHC 34 % (32-34) 11/03/18 04:38 RDW 15.0 % (13.2-15.2) 11/03/18 04:38 Plt Count 280 K/mm3 (140-440) 11/03/18 04:38 Lymph % (Auto) 11.3 % (13.4-35.0) L 10/24/18 05:56 Henry % (Auto) 7.1 % (0.0-7.3) 10/24/18 05:56 Eos % (Auto) 1.0 % (0.0-4.3) 10/24/18 05:56 Baso % (Auto) 0.4 % (0.0-1.8) 10/24/18 05:56 Lymph # 1.3 K/mm3 (1.2-5.4) 10/24/18 05:56 Henry # 0.8 K/mm3 (0.0-0.8) 10/24/18 05:56 Eos # 0.1 K/mm3 (0.0-0.4) 10/24/18 05:56 Baso # 0.0 K/mm3 (0.0-0.1) 10/24/18 05:56 Add Manual Diff Complete 10/30/18 04:22 Total Counted 200 10/30/18 04:22 Seg Neutrophils % [employer] Field Technician 10/30/18 04:22 Seg Neuts % (Manual) 69.0 % (40.0-70.0) 10/30/18 04:22 26.0 % 10/30/18 04:22 1.5 % (13.4-35.0) L 10/30/18 04:22 Reactive Lymphs % (Man) 0 % 10/30/18 04:22 2.0 % (0.0-7.3) 10/30/18 04:22 0 % (0.0-4.3) 10/30/18 04:22 0 % (0.0-1.8) 10/30/18 04:22 1.0 % 10/30/18 04:22 0.5 % 10/30/18 04:22 0 % 10/30/18 04:22 0 % 10/30/18 04:22 Nucleated RBC % Not Reportable 10/30/18 04:22 Seg Neutrophils # 9.4 K/mm3 (1.8-7.7) H 10/24/18 05:56 Seg Neutrophils # Man 18.6 K/mm3 (1.8-7.7) H 10/30/18 04:22 Band Neutrophils # 7.0 K/mm3 10/30/18 04:22 0.4 K/mm3 (1.2-5.4) L 10/30/18 04:22 Abs React Lymphs (Man) 0.0 K/mm3 10/30/18 04:22 0.5 K/mm3 (0.0-0.8) 10/30/18 04:22 0.0 K/mm3 (0.0-0.4) 10/30/18 04:22 0.0 K/mm3 (0.0-0.1) 10/30/18 04:22 0.3 K/mm3 10/30/18 04:22 0.1 K/mm3 10/30/18 04:22 0.0 K/mm3 10/30/18 04:22 Blast Cells # 0.0 K/mm3 10/30/18 04:22 Pathologist Review 10/11/18 00:16 WBC Morphology Not Reportable 10/30/18 04:22 WBC Morphology TNR 10/30/18 04:22 Hypersegmented Neuts Not Reportable 10/30/18 04:22 Hyposegmented Neuts Not Reportable 10/30/18 04:22 Hypogranular Neuts Not Reportable 10/30/18 04:22 Not Reportable 10/30/18 04:22 Not Reportable 10/30/18 04:22 Not Reportable 10/30/18 04:22 Not Reportable 10/30/18 04:22 Not Reportable 10/30/18 04:22 Not Reportable 10/30/18 04:22 Consistent w auto 10/30/18 04:22 Not Reportable 10/30/18 04:22 Plt Clumps, EDTA Not Reportable 10/30/18 04:22 Not Reportable 10/30/18 04:22 Not Reportable 10/30/18 04:22 Not Reportable 10/30/18 04:22 Plt Morphology Comment Not Reportable 10/30/18 04:22 RBC Morphology Not Reportable 10/30/18 04:22 Dimorphic RBCs Not Reportable 10/30/18 04:22 Not Reportable 10/30/18 04:22 Not Reportable 10/30/18 04:22 Not Reportable 10/30/18 04:22 Not Reportable 10/30/18 04:22 Not Reportable 10/30/18 04:22 Not Reportable 10/30/18 04:22 Not Reportable 10/30/18 04:22 Not Reportable 10/30/18 04:22 Not Reportable 10/30/18 04:22 Not Reportable 10/30/18 04:22 Not Reportable 10/30/18 04:22 Not Reportable 10/30/18 04:22 Not Reportable 10/30/18 04:22 Not Reportable 10/30/18 04:22 Not Reportable 10/30/18 04:22 Not Reportable 10/30/18 04:22 Not Reportable 10/30/18 04:22 Not Reportable 10/30/18 04:22 Not Reportable 10/30/18 04:22 Acanthocytes (Spur) Not Reportable 10/30/18 04:22 Rouleaux Not Reportable 10/30/18 04:22 Not Reportable 10/30/18 04:22 Not Reportable 10/30/18 04:22 Not Reportable 10/30/18 04:22 Not Reportable 10/30/18 04:22 Hem Pathologist Commnt No 10/30/18 04:22 PT 13.9 Sec. (12.2-14.9) 10/29/18 07:11 INR 1.01 (0.87-1.13) 10/29/18 07:11 APTT 30.3 Sec. (24.2-36.6) 10/27/18 13:33 Heparin Anti-Xa Level 1.05 U.I./ml (0.3-0.7) H 11/01/18 11:38 Heparin Anti-Xa, Unfract Negative (Negative) 10/15/18 12:00 POC ABG pH 7.393 (7.35-7.45) 10/16/18 12:51 POC ABG pCO2 48.9 (35-45) H 10/16/18 12:51 POC ABG pO2 92 (80-105) 10/16/18 12:51 POC ABG HCO3 29.8 (22-26 mml/L) 10/16/18 12:51 POC ABG Total CO2 31 (23-27mmol/L) 10/16/18 12:51 POC ABG O2 Sat 97 10/16/18 12:51 POC ABG Base Excess 5 ((-2) - (+3)mmol/L) 10/16/18 12:51 35 % 10/16/18 12:51 Sodium 135 mmol/L (137-145) L 11/03/18 04:38 Potassium 3.9 mmol/L (3.6-5.0) 11/03/18 04:38 Chloride 98.3 mmol/L (98-107) 11/03/18 04:38 Carbon Dioxide 27 mmol/L (22-30) 11/03/18 04:38 14 mmol/L 11/03/18 04:38 BUN 14 mg/dL (9-20) 11/03/18 04:38 0.5 mg/dL (0.8-1.5) L 11/03/18 04:38 Estimated GFR > 60 ml/min 11/03/18 04:38 28 % 11/03/18 04:38 Glucose 160 mg/dL (75-100) H 11/03/18 04:38 POC Glucose 159 (70-105) H 11/03/18 10:59 Lactic Acid 2.70 mmol/L (0.7-2.0) H* 10/11/18 12:30 Calcium 8.9 mg/dL (8.4-10.2) 11/03/18 04:38 Phosphorus 2.80 mg/dL (2.5-4.5) 10/21/18 04:59 Magnesium 1.70 mg/dL (1.7-2.3) 11/01/18 05:52 0.70 mg/dL (0.1-1.2) 11/03/18 04:38 AST 46 units/L (5-40) H 11/03/18 04:38 ALT 22 units/L (7-56) 11/03/18 04:38 49 units/L (35-129) 11/03/18 04:38 3647 units/L (55-170) H 10/12/18 04:04 CK-MB (CK-2) 48.3 ng/mL (0.0-4.0) H 10/12/18 04:04 CK-MB (CK-2) Rel Index 1.3 (0-4) 10/12/18 04:04 0.816 ng/mL (0.00-0.029) H* 10/13/18 16:15 6.9 g/dL (6.3-8.2) 11/03/18 04:38 2.3 g/dL (3.9-5) L 11/03/18 04:38 0.5 % 11/03/18 04:38 Triglycerides 87 mg/dL (2-149) 10/11/18 00:16 Cholesterol 73 mg/dL (50-199) 10/11/18 00:16 51 mg/dL (50-130) 10/11/18 00:16 19 mg/dL (40-59) L 10/11/18 00:16 3.84 % 10/11/18 00:16 See scanned report 10/15/18 12:00 Yellow (Yellow) 10/11/18 01:42 Cloudy (Clear) 10/11/18 01:42 6.0 (5.0-7.0) 10/11/18 01:42 Ur Specific [place] 1.011 (1.003-1.030) 10/11/18 01:42 100 mg/dl mg/dL (Negative) 10/11/18 01:42 >=500 mg/dL (Negative) 10/11/18 01:42 Neg mg/dL (Negative) 10/11/18 01:42 Mod (Negative) 10/11/18 01:42 Neg (Negative) 10/11/18 01:42 Neg (Negative) 10/11/18 01:42 4.0 mg/dL (<2.0) 10/11/18 01:42 Ur Leukocyte Esterase Neg (Negative) 10/11/18 01:42 5.0 /HPF (0.0-6.0) 10/11/18 01:42 2.0 /HPF (0.0-6.0) 10/11/18 01:42 U Epithel Cells (Auto) < 1.0 /HPF (0-13.0) 10/11/18 01:42 Amorphous Crystals 1+ 10/11/18 01:42 Few /HPF 10/11/18 01:42 2+ /HPF (SOCIAL MEDIA MARKETING ANALYST) 10/11/18 01:42 Vancomycin Trough 8.3 ug/mL (5.0-20.0) 10/13/18 05:40 Salicylates < 0.3 mg/dL (2.8-20.0) L 10/11/18 00:16 Presumptive positive 10/11/18 01:42 Presumptive negative 10/11/18 01:42 Acetaminophen < 5.0 ug/mL (10.0-30.0) L 10/11/18 00:16 Ur Barbiturates Screen Presumptive negative 10/11/18 01:42 Ur Phencyclidine Scrn Presumptive negative 10/11/18 01:42 Ur Amphetamines Screen Presumptive positive 10/11/18 01:42 U Benzodiazepines Scrn Presumptive positive 10/11/18 01:42 Presumptive negative 10/11/18 01:42 U Marijuana (THC) Screen Presumptive negative 10/11/18 01:42 Disclamer 10/11/18 01:42 Plasma/Serum Alcohol < 0.01 % (0-0.07) 10/11/18 00:16 Heparin-induced Plt Ab Negative (Negative) 10/15/18 12:00 UF Heparin High Dose 0 % Release 10/15/18 12:00 AURELIO UFH Low Dose 0.1 0 % Release 10/15/18 12:00 AURELIO UFH Low Dose 0.5 0 % Release 10/15/18 12:00 Blood Type O POSITIVE 10/31/18 08:07 Antibody Screen Positive 10/31/18 08:07 Antibody Identification Negative 10/31/18 08:07 Direct Antiglob Test Negative 10/31/18 08:07 SHASHANK, Poly Interpret Negative 10/31/18 08:07 Crossmatch See Detail 10/31/18 08:07 Active Medications - Current Medications Current Medications: Generic Name Dose Route Start Last Admin Trade Name Freq PRN Reason Stop Dose Admin Acetaminophen 650 mg 10/11/18 04:04 10/21/18 22:21 Tylenol PO 650 mg Q4H PRN Administration Pain MILD(1-3)/Fever >100.5/HOLLINS Albuterol 2.5 mg 10/19/18 00:54 Proventil IH Q4HRT PRN Shortness Of Breath Albuterol/Ipratropium 1 ampul 10/19/18 08:00 11/03/18 07:28 Duoneb *Not For Prn Use* IH 1 ampul TIDRT ISAAC Administration Alprazolam 1 mg 10/20/18 13:06 11/01/18 20:48 Xanax PO 1 mg TID PRN Administration Anxiety Apixaban 10 mg 11/01/18 16:00 11/03/18 10:45 Eliquis PO 11/08/18 10:01 10 mg Q12HR ISAAC Administration Protocol Apixaban 5 mg 11/08/18 22:00 Eliquis PO Q12HR ISAAC Protocol Aspirin 81 mg 11/01/18 16:00 11/03/18 10:44 Halfprin Ec PO 81 mg QDAY ISAAC Administration Citalopram Hydrobromide 10 mg 10/21/18 10:00 11/03/18 10:45 Celexa PO 10 mg QDAY ISAAC Administration Dextrose 0 ml 10/11/18 03:57 10/11/18 10:18 D50w (25gm) Syringe IV 10 ml PRN PRN Administration Hypoglycemia Famotidine 20 mg 10/15/18 10:00 11/03/18 10:45 Pepcid PO 20 mg BID ISAAC Administration Insulin Human Regular 0 units 10/17/18 11:30 11/03/18 11:36 Humulin R SUB-Q 3 units ACHS ISAAC Administration Protocol Metoprolol Tartrate 25 mg 10/18/18 22:00 11/02/18 21:46 Lopressor PO 25 mg BID ISAAC Administration Metoprolol Tartrate 2.5 mg 10/18/18 18:51 10/18/18 22:19 Lopressor IV 2.5 mg Q6H PRN Administration Tachyarrhythmias Naloxone HCl 0.1 mg 10/29/18 16:03 Narcan 0.4 Mg/1 Ml IV Q2MIN PRN Res Rate </= 8 or 02 SAT < 92% Ondansetron HCl 4 mg 10/11/18 04:04 11/01/18 22:12 Zofran IV 4 mg Q8H PRN Administration Nausea And Vomiting Oxycodone HCl 10 mg 11/01/18 22:00 11/03/18 10:45 Oxycontin PO 10 mg Q12HR ISAAC Administration Oxycodone/Acetaminophen 1 tab 10/18/18 13:45 11/02/18 20:30 Percocet 5/325 PO 1 tab Q6H PRN Administration Pain, Moderate (4-6) Quetiapine Fumarate 200 mg 10/14/18 22:00 11/02/18 21:49 Seroquel PO 200 mg QHS ISAAC Administration Nutrition/Malnutrition Assess - Dietary Evaluation Nutrition/Malnutrition Findings: Nutrition Notes Start: 10/11/18 12:39 Freq: Status: Active Protocol: Document 11/02/18 11:12 SHERLY (Rec: 11/02/18 11:13 SHERLY [email or web address]) Nutrition Notes Need for Assessment generated from: Low BMI Initial or Follow up Brief Note Subjective/Other Information Pt screened for low BMI. Pt already being followed by [facility]. Nutrition Intervention Follow-Up By: 11/06/18 Additional Comments F/U: intakes
--- NOTE | 2018-11-03 13:24 | Progress Note ---
Assessment and Plan Surgical wounds are stbale. Right foot is well perfused and gangrene is stable. Will continue to monitor. Needs to improve nutrition, Boost shakes for improved protein intake, would check Prealbumin Physical therapy to improve activity Subjective Date of service: 11/03/18 Principal diagnosis: Ac hypercapnic hypoxemic Resp failure; Drug OD; AE-COPD; NINOSKA; Seizures Interval history: Patient transferred out of the unit. Complaining of pain all over. Likely withdrawal pain. Has not been out of bed since admission. Objective - Constitutional Vitals: Vital Signs - 12hr 11/03/18 11/03/18 11/03/18 02:00 03:00 03:49 Temperature 98.8 F Pulse Rate 86 88 Pulse Rate [ From Monitor] Pulse Rate [ Posterior Bilateral Throughout] Respiratory 22 22 Rate Respiratory Rate [Posterior Bilateral Throughout] Blood Pressure 135/78 135/78 O2 Sat by Pulse 94 92 Oximetry 11/03/18 11/03/18 11/03/18 04:00 05:00 06:00 Temperature Pulse Rate 88 99 H 92 H Pulse Rate [ 89 From Monitor] Pulse Rate [ Posterior Bilateral Throughout] Respiratory 19 14 18 Rate Respiratory Rate [Posterior Bilateral Throughout] Blood Pressure 89/47 89/47 99/57 O2 Sat by Pulse 92 93 Oximetry 11/03/18 11/03/18 11/03/18 07:00 07:28 07:36 Temperature Pulse Rate 95 H Pulse Rate [ From Monitor] Pulse Rate [ 108 H 95 H Posterior Bilateral Throughout] Respiratory 18 Rate Respiratory 22 20 Rate [Posterior Bilateral Throughout] Blood Pressure O2 Sat by Pulse 95 94 Oximetry 11/03/18 11/03/18 11/03/18 08:00 09:00 10:00 Temperature 97.6 F Pulse Rate 99 H 106 H 95 H Pulse Rate [ From Monitor] Pulse Rate [ Posterior Bilateral Throughout] Respiratory 16 18 19 Rate Respiratory Rate [Posterior Bilateral Throughout] Blood Pressure 93/54 93/54 82/58 O2 Sat by Pulse 95 91 92 Oximetry 11/03/18 11/03/18 11/03/18 11:00 11:47 12:00 Temperature 97.6 F Pulse Rate 107 H 102 H Pulse Rate [ From Monitor] Pulse Rate [ Posterior Bilateral Throughout] Respiratory 27 H 16 Rate Respiratory Rate [Posterior Bilateral Throughout] Blood Pressure 82/58 110/53 O2 Sat by Pulse 97 98 Oximetry 11/03/18 11/03/18 12:30 13:00 Temperature Pulse Rate 152 H 102 H Pulse Rate [ From Monitor] Pulse Rate [ Posterior Bilateral Throughout] Respiratory 16 Rate Respiratory Rate [Posterior Bilateral Throughout] Blood Pressure 106/49 O2 Sat by Pulse 98 Oximetry General appearance: Present: other (somewhat agitated but cooperative) - Respiratory Respiratory effort: normal Extremities: pulses intact (right PT palpable), abnormal (left BKA stump is warm without signs denny ischemia, right groin incision C/D/I) Extremity abnormal: cyanosis (dry gangrene of toes and plantar surface of right foot is stable), other - Labs CBC & Chem 7: 11/03/18 04:38 11/03/18 04:38 Labs: Abnormal lab results 11/02/18 11/03/18 11/03/18 Range/Units 22:16 04:38 04:38 WBC 11.6 H (4.5-11.0) K/mm3 RBC 3.20 L (3.65-5.03) M/mm3 Hgb 9.8 L (11.8-15.2) gm/dl Hct 29.2 L (35.5-45.6) % Sodium 135 L (137-145) mmol/L Creatinine 0.5 L (0.8-1.5) mg/dL Glucose 160 H (75-100) mg/dL POC Glucose 182 H (70-105) AST 46 H (5-40) units/L Albumin 2.3 L (3.9-5) g/dL 11/03/18 11/03/18 Range/Units 07:52 10:59 WBC (4.5-11.0) K/mm3 RBC (3.65-5.03) M/mm3 Hgb (11.8-15.2) gm/dl Hct (35.5-45.6) % Sodium (137-145) mmol/L Creatinine (0.8-1.5) mg/dL Glucose (75-100) mg/dL POC Glucose 180 H 159 H (70-105) AST (5-40) units/L Albumin (3.9-5) g/dL Medications & Allergies - Medications Allergies/Adverse Reactions: Allergies No Known Allergies Allergy (Verified 10/31/14 11:20) Home Medications: Home Medications Medication Instructions Recorded Confirmed Last Taken Type Gabapentin [Neurontin] 90 mg PO Q8HR 04/22/15 11/01/18 04/21/15 History ALPRAZolam [Xanax TAB] 1 mg PO TID PRN #30 tablet 03/28/16 11/01/18 Unknown Rx Albuterol Sulfate [Ventolin HFA] 2 puff IH Q4H PRN #1 hfa.aer.ad 03/28/16 11/01/18 Unknown Rx Ciprofloxacin HCl [Ciprofloxacin 500 mg PO Q12HR #30 tab 03/28/16 11/01/18 Unknown Rx TAB] Citalopram [celeXA] 10 mg PO QDAY #30 tablet 03/28/16 11/01/18 Unknown Rx Nicotine [Habitrol] 14 mg TD QDAY #30 patch 03/28/16 11/01/18 Unknown Rx Sitagliptin Phos/Metformin HCl 1 tab PO QDAY #30 tbmp.24hr 03/28/16 11/01/18 Unknown Rx [Janumet XR 100-1,000 mg] oxyCODONE /ACETAMINOPHEN [Percocet 1 tab PO Q6H PRN #60 tablet 03/28/16 11/01/18 Unknown Rx 5/325 mg] Active Medications: Generic Name Dose Route Start Last Admin Trade Name Freq PRN Reason Stop Dose Admin Acetaminophen 650 mg 10/11/18 04:04 10/21/18 22:21 Tylenol PO 650 mg Q4H PRN Administration Pain MILD(1-3)/Fever >100.5/HOLLINS Albuterol 2.5 mg 10/19/18 00:54 Proventil IH Q4HRT PRN Shortness Of Breath Albuterol/Ipratropium 1 ampul 10/19/18 08:00 11/03/18 07:28 Duoneb *Not For Prn Use* IH 1 ampul TIDRT ISAAC Administration Alprazolam 1 mg 10/20/18 13:06 11/01/18 20:48 Xanax PO 1 mg TID PRN Administration Anxiety Apixaban 10 mg 11/01/18 16:00 11/03/18 10:45 Eliquis PO 11/08/18 10:01 10 mg Q12HR ISAAC Administration Protocol Apixaban 5 mg 11/08/18 22:00 Eliquis PO Q12HR ISAAC Protocol Aspirin 81 mg 11/01/18 16:00 11/03/18 10:44 Halfprin Ec PO 81 mg QDAY ISAAC Administration Citalopram Hydrobromide 10 mg 10/21/18 10:00 11/03/18 10:45 Celexa PO 10 mg QDAY ISAAC Administration Dextrose 0 ml 10/11/18 03:57 10/11/18 10:18 D50w (25gm) Syringe IV 10 ml PRN PRN Administration Hypoglycemia Famotidine 20 mg 10/15/18 10:00 11/03/18 10:45 Pepcid PO 20 mg BID ISAAC Administration Insulin Human Regular 0 units 10/17/18 11:30 11/03/18 11:36 Humulin R SUB-Q 3 units ACHS ISAAC Administration Protocol Metoprolol Tartrate 25 mg 10/18/18 22:00 11/03/18 12:30 Lopressor PO 25 mg BID ISAAC Administration Metoprolol Tartrate 2.5 mg 10/18/18 18:51 10/18/18 22:19 Lopressor IV 2.5 mg Q6H PRN Administration Tachyarrhythmias Naloxone HCl 0.1 mg 10/29/18 16:03 Narcan 0.4 Mg/1 Ml IV Q2MIN PRN Res Rate </= 8 or 02 SAT < 92% Ondansetron HCl 4 mg 10/11/18 04:04 11/01/18 22:12 Zofran IV 4 mg Q8H PRN Administration Nausea And Vomiting Oxycodone HCl 10 mg 11/01/18 22:00 11/03/18 10:45 Oxycontin PO 10 mg Q12HR ISAAC Administration Oxycodone/Acetaminophen 1 tab 10/18/18 13:45 11/02/18 20:30 Percocet 5/325 PO 1 tab Q6H PRN Administration Pain, Moderate (4-6) Quetiapine Fumarate 200 mg 10/14/18 22:00 11/02/18 21:49 Seroquel PO 200 mg QHS ISAAC Administration
[2018-11-03] MEDS: PERCOCET 5/325 PO PRN (16:29)
[2018-11-03] MEDS: SUBOXONE 2 MG-0.5 MG SL SCH (16:39)
[2018-11-03] MEDS: XANAX PO PRN (18:33)
--- NOTE | 2018-11-04 06:54 | Progress Note ---
Assessment and Plan s/p left BKA, right open thrombectomy and aortic stenting and bilateral common iliac artery stenting but right EIA occluded requiring another open thrombectomy and stenting of the right iliac system. 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 Witnessed seizure en route. Acute kidney injury. Leukocytosis. Hypercapnia. Hyperkalemia. Metabolic acidosis. Lactic acidosis. Non-ST elevation myocardial infarction. Elevated serum transaminases. Pain management Therapeutic anticoagulation PT/OT/Mobility Falls precautions Optimize nutrition Discharge planning, discussed with Dr. melissa--awaiting placement All other care as documented below - continue bronchodilators with pulmonary hygiene per RT - continue to wean supplemental oxygen to keep O2 sats 88-90% - PRN ABGs/CXR - Continue cardioprotective measures -Continue with secondary stroke prophylaxis - Replete electrolytes as indicated - Follow cultures and adjust antibiotics for ID/CALEB (Deescalate as indicated) - Avoid nephrotoxic agents, adjust all medications for CrCL - Aspiration precautions - Accuchecks with glycemic control. Target glucose of 140-180 mg/dL - Influenza and pneumonia vaccination per protocol Subjective Date of service: 11/04/18 Principal diagnosis: Ac hypercapnic hypoxemic Resp failure; Drug OD; AE-COPD; NINOSKA; Seizures Interval history: Patient is seen today for: Acute hypoxemic respiratory failure,s/p mechanical ventilator support; Drug overdose; Chronic obstructive pulmonary disease ; s/p left BKA for critical limb ischemia Seen and examined at bedside; 24-hour events reviewed; nursing and respiratory care staff consulted; no adverse overnight events reported to me; Vitals, labs,medications, chart reviewed. Resting peacefully in bed. Denies any chest pain, no shortness of breath, no fevers or chills No nausea or vomiting. Tolerating his diet Objective Vital Signs - 12hr 11/03/18 11/03/18 11/03/18 19:00 20:00 20:45 Temperature Pulse Rate Pulse Rate [ 98 H Anterior Bilateral Throughout] Respiratory 18 Rate Respiratory 20 Rate [Anterior Bilateral Throughout] Respiratory 17 Rate [Left Leg] Respiratory 17 Rate [Right Arm ] Blood Pressure O2 Sat by Pulse 92 93 Oximetry 11/03/18 11/03/18 11/03/18 20:59 22:17 22:21 Temperature 98.1 F Pulse Rate 85 85 Pulse Rate [ 96 H Anterior Bilateral Throughout] Respiratory 18 Rate Respiratory 20 Rate [Anterior Bilateral Throughout] Respiratory Rate [Left Leg] Respiratory Rate [Right Arm ] Blood Pressure 114/68 114/68 O2 Sat by Pulse 90 Oximetry 11/03/18 11/04/18 11/04/18 23:00 03:00 04:44 Temperature 97.5 F L Pulse Rate 84 Pulse Rate [ Anterior Bilateral Throughout] Respiratory 18 Rate Respiratory Rate [Anterior Bilateral Throughout] Respiratory 17 17 Rate [Left Leg] Respiratory 17 17 Rate [Right Arm ] Blood Pressure 96/58 O2 Sat by Pulse 89 Oximetry Constitutional: no acute distress, other (middle aged but chronically ill looking CM; Atraumatic) Eyes: non-icteric ENT: oropharynx moist Neck: supple, no lymphadenopathy, no JVD Effort: normal Ascultation: Bilateral: clear, diminished breath sounds, rhonchi Percussion: Bilateral: not dull Cardiovascular: irregular rhythm, other (No R/M) Gastrointestinal: normoactive bowel sounds, soft, non-tender, non-distended Integumentary: other (poor turgor) Extremities: no edema, other (s/p Left KBA, ischemic toes on the right with poor pedal pulses) Neurologic: normal mental status, pupils equal and round, other (Left hemiparesis, improving) Psychiatric: mood appropriate, affect normal CBC and BMP: 11/04/18 15:45 11/04/18 15:45 ABG, PT/INR, D-dimer: ABG POC ABG pH 7.393 (7.35-7.45) 10/16/18 12:51 POC ABG pCO2 48.9 (35-45) H 10/16/18 12:51 POC ABG pO2 92 (80-105) 10/16/18 12:51 POC ABG HCO3 29.8 (22-26 mml/L) 10/16/18 12:51 POC ABG Total CO2 31 (23-27mmol/L) 10/16/18 12:51 POC ABG O2 Sat 97 10/16/18 12:51 PT/INR, D-dimer PT 13.9 Sec. (12.2-14.9) 10/29/18 07:11 INR 1.01 (0.87-1.13) 10/29/18 07:11 Abnormal lab findings: Abnormal Labs 10/11/18 10/11/18 10/11/18 00:16 00:16 00:16 WBC 20.1 H RBC Hgb Hct MCV 98 H MCHC RDW 15.4 H Plt Count Lymph % (Auto) [place] % (Auto) [place] # Seg Neutrophils % Seg Neuts % (Manual) Lymphocytes % (Manual) 5.0 L Monocytes % (Manual) 25.0 H Seg Neutrophils # Seg Neutrophils # Man 9.2 H Lymphocytes # (Manual) 1.0 L Monocytes # (Manual) 5.0 H APTT Heparin Anti-Xa Level POC ABG pH POC ABG pCO2 POC ABG pO2 Sodium Potassium 5.8 H Chloride Carbon Dioxide 17 L BUN Creatinine 2.2 H Glucose 348 H POC Glucose Lactic Acid 13.70 H* Calcium 7.7 L Phosphorus Total Bilirubin 1.50 H AST 179 H ALT 110 H Total Creatine Kinase 324 H CK-MB (CK-2) Troponin T 0.257 H* Total Protein 5.9 L Albumin 2.9 L HDL Cholesterol 19 L Salicylates Acetaminophen Crossmatch 10/11/18 10/11/18 10/11/18 00:16 00:16 01:21 WBC RBC Hgb Hct MCV MCHC RDW Plt Count Lymph % (Auto) [place] % (Auto) [place] # Seg Neutrophils % Seg Neuts % (Manual) Lymphocytes % (Manual) Monocytes % (Manual) Seg Neutrophils # Seg Neutrophils # Man Lymphocytes # (Manual) Monocytes # (Manual) APTT Heparin Anti-Xa Level POC ABG pH 7.110 L POC ABG pCO2 50.3 H POC ABG pO2 65 L Sodium Potassium Chloride Carbon Dioxide BUN Creatinine Glucose POC Glucose Lactic Acid Calcium Phosphorus Total Bilirubin AST ALT Total Creatine Kinase CK-MB (CK-2) Troponin T Total Protein Albumin HDL Cholesterol Salicylates < 0.3 L Acetaminophen < 5.0 L Crossmatch 10/11/18 10/11/18 10/11/18 01:22 03:27 04:14 WBC RBC Hgb Hct MCV MCHC RDW Plt Count Lymph % (Auto) [place] % (Auto) [place] # Seg Neutrophils % Seg Neuts % (Manual) Lymphocytes % (Manual) Monocytes % (Manual) Seg Neutrophils # Seg Neutrophils # Man Lymphocytes # (Manual) Monocytes # (Manual) APTT Heparin Anti-Xa Level POC ABG pH POC ABG pCO2 POC ABG pO2 Sodium Potassium Chloride Carbon Dioxide BUN Creatinine Glucose POC Glucose Lactic Acid 8.50 H* 4.10 H* Calcium Phosphorus 4.90 H Total Bilirubin AST ALT Total Creatine Kinase CK-MB (CK-2) Troponin T Total Protein Albumin HDL Cholesterol Salicylates Acetaminophen Crossmatch 10/11/18 10/11/18 10/11/18 04:14 04:14 04:14 WBC RBC Hgb Hct MCV MCHC RDW Plt Count Lymph % (Auto) [place] % (Auto) [place] # Seg Neutrophils % Seg Neuts % (Manual) Lymphocytes % (Manual) Monocytes % (Manual) Seg Neutrophils # Seg Neutrophils # Man Lymphocytes # (Manual) Monocytes # (Manual) APTT Heparin Anti-Xa Level POC ABG pH POC ABG pCO2 POC ABG pO2 Sodium Potassium 5.6 H Chloride Carbon Dioxide 19 L BUN Creatinine 1.6 H Glucose 329 H POC Glucose 328 H Lactic Acid Calcium 7.3 L Phosphorus Total Bilirubin AST ALT Total Creatine Kinase CK-MB (CK-2) Troponin T 1.130 H* D Total Protein Albumin HDL Cholesterol Salicylates Acetaminophen Crossmatch 10/11/18 10/11/18 10/11/18 05:10 05:32 05:58 WBC RBC Hgb Hct MCV MCHC RDW Plt Count Lymph % (Auto) [place] % (Auto) [place] # Seg Neutrophils % Seg Neuts % (Manual) Lymphocytes % (Manual) Monocytes % (Manual) Seg Neutrophils # Seg Neutrophils # Man Lymphocytes # (Manual) Monocytes # (Manual) APTT Heparin Anti-Xa Level POC ABG pH 7.259 L POC ABG pCO2 45.6 H POC ABG pO2 Sodium Potassium Chloride 108.6 H Carbon Dioxide 20 L BUN Creatinine 1.8 H Glucose 269 H POC Glucose 273 H Lactic Acid Calcium 7.0 L Phosphorus Total Bilirubin AST ALT Total Creatine Kinase CK-MB (CK-2) Troponin T Total Protein Albumin HDL Cholesterol Salicylates Acetaminophen Crossmatch 10/11/18 10/11/18 10/11/18 05:58 06:39 07:00 WBC RBC Hgb Hct MCV MCHC RDW Plt Count Lymph % (Auto) [place] % (Auto) [place] # Seg Neutrophils % Seg Neuts % (Manual) Lymphocytes % (Manual) Monocytes % (Manual) Seg Neutrophils # Seg Neutrophils # Man Lymphocytes # (Manual) Monocytes # (Manual) APTT Heparin Anti-Xa Level POC ABG pH POC ABG pCO2 POC ABG pO2 Sodium Potassium Chloride Carbon Dioxide BUN Creatinine Glucose POC Glucose 247 H Lactic Acid 3.20 H* 3.30 H* Calcium Phosphorus Total Bilirubin AST ALT Total Creatine Kinase CK-MB (CK-2) Troponin T Total Protein Albumin HDL Cholesterol Salicylates Acetaminophen Crossmatch 10/11/18 10/11/18 10/11/18 07:00 07:30 07:36 WBC RBC Hgb Hct MCV MCHC RDW Plt Count Lymph % (Auto) [place] % (Auto) [place] # Seg Neutrophils % Seg Neuts % (Manual) Lymphocytes % (Manual) Monocytes % (Manual) Seg Neutrophils # Seg Neutrophils # Man Lymphocytes # (Manual) Monocytes # (Manual) APTT Heparin Anti-Xa Level POC ABG pH POC ABG pCO2 POC ABG pO2 Sodium 146 H Potassium Chloride 112.1 H Carbon Dioxide 21 L BUN Creatinine 1.6 H Glucose 218 H POC Glucose Lactic Acid 3.20 H* Calcium 7.0 L Phosphorus Total Bilirubin AST ALT Total Creatine Kinase CK-MB (CK-2) Troponin T 1.020 H* Total Protein Albumin HDL Cholesterol Salicylates Acetaminophen Crossmatch 10/11/18 10/11/18 10/11/18 07:43 08:29 08:29 WBC RBC Hgb 16.2 H Hct 49.9 H D MCV MCHC RDW Plt Count Lymph % (Auto) [place] % (Auto) [place] # Seg Neutrophils % Seg Neuts % (Manual) Lymphocytes % (Manual) Monocytes % (Manual) Seg Neutrophils # Seg Neutrophils # Man Lymphocytes # (Manual) Monocytes # (Manual) APTT Heparin Anti-Xa Level POC ABG pH POC ABG pCO2 POC ABG pO2 Sodium Potassium Chloride Carbon Dioxide BUN Creatinine Glucose POC Glucose 174 H Lactic Acid 3.90 H* Calcium Phosphorus Total Bilirubin AST ALT Total Creatine Kinase CK-MB (CK-2) Troponin T Total Protein Albumin HDL Cholesterol Salicylates Acetaminophen Crossmatch 10/11/18 10/11/18 10/11/18 08:29 08:42 11:05 WBC RBC Hgb Hct MCV MCHC RDW Plt Count Lymph % (Auto) [place] % (Auto) [place] # Seg Neutrophils % Seg Neuts % (Manual) Lymphocytes % (Manual) Monocytes % (Manual) Seg Neutrophils # Seg Neutrophils # Man Lymphocytes # (Manual) Monocytes # (Manual) APTT 24.1 L Heparin Anti-Xa Level POC ABG pH POC ABG pCO2 POC ABG pO2 Sodium 147 H Potassium Chloride 113.3 H Carbon Dioxide 21 L BUN Creatinine 1.7 H Glucose 119 H POC Glucose 164 H Lactic Acid Calcium 7.7 L Phosphorus Total Bilirubin AST ALT Total Creatine Kinase CK-MB (CK-2) Troponin T Total Protein Albumin HDL Cholesterol Salicylates Acetaminophen Crossmatch 10/11/18 10/11/18 10/11/18 11:05 11:06 12:30 WBC RBC Hgb Hct MCV MCHC RDW Plt Count Lymph % (Auto) [place] % (Auto) [place] # Seg Neutrophils % Seg Neuts % (Manual) Lymphocytes % (Manual) Monocytes % (Manual) Seg Neutrophils # Seg Neutrophils # Man Lymphocytes # (Manual) Monocytes # (Manual) APTT Heparin Anti-Xa Level POC ABG pH POC ABG pCO2 POC ABG pO2 Sodium 148 H Potassium Chloride 113.4 H Carbon Dioxide 21 L BUN Creatinine 1.6 H Glucose 119 H POC Glucose 116 H Lactic Acid 3.20 H* Calcium 7.5 L Phosphorus Total Bilirubin AST ALT Total Creatine Kinase CK-MB (CK-2) Troponin T Total Protein Albumin HDL Cholesterol Salicylates Acetaminophen Crossmatch 10/11/18 10/11/18 10/11/18 12:30 13:16 13:25 WBC RBC Hgb Hct MCV MCHC RDW Plt Count Lymph % (Auto) [place] % (Auto) [place] # Seg Neutrophils % Seg Neuts % (Manual) Lymphocytes % (Manual) Monocytes % (Manual) Seg Neutrophils # Seg Neutrophils # Man Lymphocytes # (Manual) Monocytes # (Manual) APTT Heparin Anti-Xa Level POC ABG pH 7.247 L POC ABG pCO2 48.4 H POC ABG pO2 Sodium Potassium Chloride Carbon Dioxide BUN Creatinine Glucose POC Glucose 112 H Lactic Acid 2.70 H* Calcium Phosphorus Total Bilirubin AST ALT Total Creatine Kinase CK-MB (CK-2) Troponin T Total Protein Albumin HDL Cholesterol Salicylates Acetaminophen Crossmatch 10/11/18 10/11/18 10/11/18 14:41 15:27 16:13 WBC RBC Hgb Hct MCV MCHC RDW Plt Count Lymph % (Auto) [place] % (Auto) [place] # Seg Neutrophils % Seg Neuts % (Manual) Lymphocytes % (Manual) Monocytes % (Manual) Seg Neutrophils # Seg Neutrophils # Man Lymphocytes # (Manual) Monocytes # (Manual) APTT Heparin Anti-Xa Level POC ABG pH POC ABG pCO2 POC ABG pO2 Sodium Potassium Chloride Carbon Dioxide BUN Creatinine Glucose POC Glucose 127 H 141 H 134 H Lactic Acid Calcium Phosphorus Total Bilirubin AST ALT Total Creatine Kinase CK-MB (CK-2) Troponin T Total Protein Albumin HDL Cholesterol Salicylates Acetaminophen Crossmatch 10/11/18 10/11/18 10/11/18 17:18 18:23 19:38 WBC RBC Hgb Hct MCV MCHC RDW Plt Count Lymph % (Auto) [place] % (Auto) [place] # Seg Neutrophils % Seg Neuts % (Manual) Lymphocytes % (Manual) Monocytes % (Manual) Seg Neutrophils # Seg Neutrophils # Man Lymphocytes # (Manual) Monocytes # (Manual) APTT Heparin Anti-Xa Level POC ABG pH POC ABG pCO2 POC ABG pO2 Sodium 148 H Potassium Chloride 112.7 H Carbon Dioxide BUN 23 H Creatinine Glucose 143 H POC Glucose 132 H 129 H Lactic Acid Calcium 7.9 L Phosphorus Total Bilirubin AST ALT Total Creatine Kinase CK-MB (CK-2) Troponin T Total Protein Albumin HDL Cholesterol Salicylates Acetaminophen Crossmatch 10/11/18 10/11/18 10/11/18 20:19 20:36 21:01 WBC RBC Hgb Hct MCV MCHC RDW Plt Count Lymph % (Auto) [place] % (Auto) [place] # Seg Neutrophils % Seg Neuts % (Manual) Lymphocytes % (Manual) Monocytes % (Manual) Seg Neutrophils # Seg Neutrophils # Man Lymphocytes # (Manual) Monocytes # (Manual) APTT Heparin Anti-Xa Level POC ABG pH 7.281 L POC ABG pCO2 POC ABG pO2 Sodium Potassium Chloride Carbon Dioxide BUN Creatinine Glucose POC Glucose 129 H 151 H Lactic Acid Calcium Phosphorus Total Bilirubin AST ALT Total Creatine Kinase CK-MB (CK-2) Troponin T Total Protein Albumin HDL Cholesterol Salicylates Acetaminophen Crossmatch 10/11/18 10/11/18 10/12/18 22:04 23:15 01:18 WBC RBC Hgb Hct MCV MCHC RDW Plt Count Lymph % (Auto) [place] % (Auto) [place] # Seg Neutrophils % Seg Neuts % (Manual) Lymphocytes % (Manual) Monocytes % (Manual) Seg Neutrophils # Seg Neutrophils # Man Lymphocytes # (Manual) Monocytes # (Manual) APTT Heparin Anti-Xa Level POC ABG pH POC ABG pCO2 POC ABG pO2 Sodium Potassium Chloride Carbon Dioxide BUN Creatinine Glucose POC Glucose 147 H 143 H 158 H Lactic Acid Calcium Phosphorus Total Bilirubin AST ALT Total Creatine Kinase CK-MB (CK-2) Troponin T Total Protein Albumin HDL Cholesterol Salicylates Acetaminophen Crossmatch 10/12/18 10/12/18 10/12/18 02:13 03:18 04:04 WBC RBC Hgb Hct MCV MCHC RDW Plt Count Lymph % (Auto) [place] % (Auto) [place] # Seg Neutrophils % Seg Neuts % (Manual) Lymphocytes % (Manual) Monocytes % (Manual) Seg Neutrophils # Seg Neutrophils # Man Lymphocytes # (Manual) Monocytes # (Manual) APTT Heparin Anti-Xa Level POC ABG pH POC ABG pCO2 POC ABG pO2 Sodium 147 H Potassium Chloride 111.1 H Carbon Dioxide BUN 30 H Creatinine 2.0 H Glucose 154 H POC Glucose 148 H 142 H Lactic Acid Calcium 8.1 L Phosphorus Total Bilirubin AST 269 H ALT 204 H Total Creatine Kinase 3647 H CK-MB (CK-2) 48.3 H Troponin T 2.230 H* D Total Protein 5.8 L Albumin 2.6 L HDL Cholesterol Salicylates Acetaminophen Crossmatch 10/12/18 10/12/18 10/12/18 04:04 04:08 04:19 WBC 24.4 H RBC Hgb Hct MCV MCHC RDW Plt Count Lymph % (Auto) [place] % (Auto) [place] # Seg Neutrophils % Seg Neuts % (Manual) 32.0 L Lymphocytes % (Manual) Monocytes % (Manual) 8.0 H Seg Neutrophils # Seg Neutrophils # Man 7.8 H Lymphocytes # (Manual) Monocytes # (Manual) 2.0 H APTT Heparin Anti-Xa Level POC ABG pH 7.317 L POC ABG pCO2 49.3 H POC ABG pO2 Sodium Potassium Chloride Carbon Dioxide BUN Creatinine Glucose POC Glucose 143 H Lactic Acid Calcium Phosphorus Total Bilirubin AST ALT Total Creatine Kinase CK-MB (CK-2) Troponin T Total Protein Albumin HDL Cholesterol Salicylates Acetaminophen Crossmatch 10/12/18 10/12/18 10/12/18 05:29 06:52 08:09 WBC RBC Hgb Hct MCV MCHC RDW Plt Count Lymph % (Auto) [place] % (Auto) [place] # Seg Neutrophils % Seg Neuts % (Manual) Lymphocytes % (Manual) Monocytes % (Manual) Seg Neutrophils # Seg Neutrophils # Man Lymphocytes # (Manual) Monocytes # (Manual) APTT Heparin Anti-Xa Level POC ABG pH 7.322 L POC ABG pCO2 46.5 H POC ABG pO2 Sodium Potassium Chloride Carbon Dioxide BUN Creatinine Glucose POC Glucose 196 H 226 H Lactic Acid Calcium Phosphorus Total Bilirubin AST ALT Total Creatine Kinase CK-MB (CK-2) Troponin T Total Protein Albumin HDL Cholesterol Salicylates Acetaminophen Crossmatch 10/12/18 10/12/18 10/12/18 08:38 10:03 15:50 WBC RBC Hgb Hct MCV MCHC RDW Plt Count Lymph % (Auto) [place] % (Auto) [place] # Seg Neutrophils % Seg Neuts % (Manual) Lymphocytes % (Manual) Monocytes % (Manual) Seg Neutrophils # Seg Neutrophils # Man Lymphocytes # (Manual) Monocytes # (Manual) APTT Heparin Anti-Xa Level POC ABG pH POC ABG pCO2 POC ABG pO2 Sodium Potassium Chloride Carbon Dioxide BUN Creatinine Glucose POC Glucose 138 H 148 H 221 H Lactic Acid Calcium Phosphorus Total Bilirubin AST ALT Total Creatine Kinase CK-MB (CK-2) Troponin T Total Protein Albumin HDL Cholesterol Salicylates Acetaminophen Crossmatch 10/12/18 10/12/18 10/12/18 18:39 20:56 21:34 WBC RBC Hgb Hct MCV MCHC RDW Plt Count Lymph % (Auto) [place] % (Auto) [place] # Seg Neutrophils % Seg Neuts % (Manual) Lymphocytes % (Manual) Monocytes % (Manual) Seg Neutrophils # Seg Neutrophils # Man Lymphocytes # (Manual) Monocytes # (Manual) APTT Heparin Anti-Xa Level POC ABG pH 7.336 L POC ABG pCO2 46.0 H POC ABG pO2 Sodium Potassium Chloride Carbon Dioxide BUN Creatinine Glucose POC Glucose 255 H 260 H Lactic Acid Calcium Phosphorus Total Bilirubin AST ALT Total Creatine Kinase CK-MB (CK-2) Troponin T Total Protein Albumin HDL Cholesterol Salicylates Acetaminophen Crossmatch 10/13/18 10/13/18 10/13/18 02:29 05:09 05:40 WBC 17.0 H RBC Hgb Hct MCV MCHC RDW Plt Count Lymph % (Auto) [place] % (Auto) 9.2 H [place] # 1.6 H Seg Neutrophils % 76.2 H Seg Neuts % (Manual) Lymphocytes % (Manual) Monocytes % (Manual) Seg Neutrophils # 12.9 H Seg Neutrophils # Man Lymphocytes # (Manual) Monocytes # (Manual) APTT Heparin Anti-Xa Level POC ABG pH POC ABG pCO2 POC ABG pO2 Sodium Potassium Chloride Carbon Dioxide BUN Creatinine Glucose POC Glucose 216 H 249 H Lactic Acid Calcium Phosphorus Total Bilirubin AST ALT Total Creatine Kinase CK-MB (CK-2) Troponin T Total Protein Albumin HDL Cholesterol Salicylates Acetaminophen Crossmatch 10/13/18 10/13/18 10/13/18 05:40 05:40 09:46 WBC RBC Hgb Hct MCV MCHC RDW Plt Count Lymph % (Auto) [place] % (Auto) [place] # Seg Neutrophils % Seg Neuts % (Manual) Lymphocytes % (Manual) Monocytes % (Manual) Seg Neutrophils # Seg Neutrophils # Man Lymphocytes # (Manual) Monocytes # (Manual) APTT Heparin Anti-Xa Level POC ABG pH POC ABG pCO2 POC ABG pO2 Sodium 146 H Potassium Chloride 109.8 H Carbon Dioxide BUN 35 H Creatinine Glucose 245 H POC Glucose 235 H Lactic Acid Calcium 7.9 L Phosphorus Total Bilirubin AST ALT Total Creatine Kinase CK-MB (CK-2) Troponin T 0.952 H* D Total Protein Albumin HDL Cholesterol Salicylates Acetaminophen Crossmatch 10/13/18 10/13/18 10/13/18 13:58 16:15 17:30 WBC RBC Hgb Hct MCV MCHC RDW Plt Count Lymph % (Auto) [place] % (Auto) [place] # Seg Neutrophils % Seg Neuts % (Manual) Lymphocytes % (Manual) Monocytes % (Manual) Seg Neutrophils # Seg Neutrophils # Man Lymphocytes # (Manual) Monocytes # (Manual) APTT Heparin Anti-Xa Level POC ABG pH POC ABG pCO2 51.2 H POC ABG pO2 Sodium Potassium Chloride Carbon Dioxide BUN Creatinine Glucose POC Glucose 139 H Lactic Acid Calcium Phosphorus Total Bilirubin AST ALT Total Creatine Kinase CK-MB (CK-2) Troponin T 0.816 H* Total Protein Albumin HDL Cholesterol Salicylates Acetaminophen Crossmatch 10/13/18 10/14/18 10/14/18 21:25 01:49 04:52 WBC RBC Hgb Hct MCV MCHC RDW Plt Count Lymph % (Auto) [place] % (Auto) [place] # Seg Neutrophils % Seg Neuts % (Manual) Lymphocytes % (Manual) Monocytes % (Manual) Seg Neutrophils # Seg Neutrophils # Man Lymphocytes # (Manual) Monocytes # (Manual) APTT Heparin Anti-Xa Level POC ABG pH POC ABG pCO2 56.0 H POC ABG pO2 Sodium Potassium Chloride Carbon Dioxide BUN Creatinine Glucose POC Glucose 205 H 166 H Lactic Acid Calcium Phosphorus Total Bilirubin AST ALT Total Creatine Kinase CK-MB (CK-2) Troponin T Total Protein Albumin HDL Cholesterol Salicylates Acetaminophen Crossmatch 10/14/18 10/14/18 10/14/18 05:32 09:45 09:45 WBC RBC Hgb 11.4 L Hct 34.5 L MCV MCHC RDW Plt Count 139 L Lymph % (Auto) [place] % (Auto) [place] # Seg Neutrophils % Seg Neuts % (Manual) Lymphocytes % (Manual) Monocytes % (Manual) Seg Neutrophils # Seg Neutrophils # Man Lymphocytes # (Manual) Monocytes # (Manual) APTT Heparin Anti-Xa Level POC ABG pH POC ABG pCO2 POC ABG pO2 Sodium 148 H Potassium Chloride 107.3 H Carbon Dioxide 34 H D BUN Creatinine 0.7 L D Glucose 191 H POC Glucose 164 H Lactic Acid Calcium 7.3 L Phosphorus Total Bilirubin AST 110 H ALT 91 H Total Creatine Kinase CK-MB (CK-2) Troponin T Total Protein 4.9 L Albumin 2.0 L HDL Cholesterol Salicylates Acetaminophen Crossmatch 10/14/18 10/14/18 10/14/18 10:54 12:20 18:30 WBC RBC Hgb Hct MCV MCHC RDW Plt Count Lymph % (Auto) [place] % (Auto) [place] # Seg Neutrophils % Seg Neuts % (Manual) Lymphocytes % (Manual) Monocytes % (Manual) Seg Neutrophils # Seg Neutrophils # Man Lymphocytes # (Manual) Monocytes # (Manual) APTT Heparin Anti-Xa Level POC ABG pH POC ABG pCO2 POC ABG pO2 Sodium Potassium Chloride Carbon Dioxide BUN Creatinine Glucose POC Glucose 173 H 158 H 108 H Lactic Acid Calcium Phosphorus Total Bilirubin AST ALT Total Creatine Kinase CK-MB (CK-2) Troponin T Total Protein Albumin HDL Cholesterol Salicylates Acetaminophen Crossmatch 10/14/18 10/15/18 10/15/18 21:54 02:12 04:19 WBC RBC Hgb Hct MCV MCHC RDW Plt Count Lymph % (Auto) [place] % (Auto) [place] # Seg Neutrophils % Seg Neuts % (Manual) Lymphocytes % (Manual) Monocytes % (Manual) Seg Neutrophils # Seg Neutrophils # Man Lymphocytes # (Manual) Monocytes # (Manual) APTT Heparin Anti-Xa Level POC ABG pH 7.491 H POC ABG pCO2 45.1 H POC ABG pO2 Sodium Potassium Chloride Carbon Dioxide BUN Creatinine Glucose POC Glucose 110 H 164 H Lactic Acid Calcium Phosphorus Total Bilirubin AST ALT Total Creatine Kinase CK-MB (CK-2) Troponin T Total Protein Albumin HDL Cholesterol Salicylates Acetaminophen Crossmatch 10/15/18 10/15/18 10/15/18 04:55 05:43 06:20 WBC RBC Hgb 11.7 L Hct 34.7 L MCV MCHC RDW Plt Count Lymph % (Auto) [place] % (Auto) [place] # Seg Neutrophils % Seg Neuts % (Manual) Lymphocytes % (Manual) Monocytes % (Manual) Seg Neutrophils # Seg Neutrophils # Man Lymphocytes # (Manual) Monocytes # (Manual) APTT Heparin Anti-Xa Level POC ABG pH POC ABG pCO2 47.3 H POC ABG pO2 78 L Sodium Potassium Chloride Carbon Dioxide BUN Creatinine Glucose POC Glucose 250 H Lactic Acid Calcium Phosphorus Total Bilirubin AST ALT Total Creatine Kinase CK-MB (CK-2) Troponin T Total Protein Albumin HDL Cholesterol Salicylates Acetaminophen Crossmatch 10/15/18 10/15/18 10/15/18 12:00 12:00 12:11 WBC RBC Hgb 11.5 L Hct 34.0 L MCV MCHC RDW Plt Count Lymph % (Auto) [place] % (Auto) [place] # Seg Neutrophils % Seg Neuts % (Manual) Lymphocytes % (Manual) Monocytes % (Manual) Seg Neutrophils # Seg Neutrophils # Man Lymphocytes # (Manual) Monocytes # (Manual) APTT Heparin Anti-Xa Level POC ABG pH POC ABG pCO2 POC ABG pO2 Sodium 147 H Potassium Chloride 108.5 H Carbon Dioxide BUN Creatinine 0.7 L Glucose 209 H POC Glucose 197 H Lactic Acid Calcium 7.3 L Phosphorus Total Bilirubin AST ALT Total Creatine Kinase CK-MB (CK-2) Troponin T Total Protein Albumin HDL Cholesterol Salicylates Acetaminophen Crossmatch 10/15/18 10/15/18 10/15/18 15:48 18:34 21:29 WBC RBC Hgb Hct MCV MCHC RDW Plt Count Lymph % (Auto) [place] % (Auto) [place] # Seg Neutrophils % Seg Neuts % (Manual) Lymphocytes % (Manual) Monocytes % (Manual) Seg Neutrophils # Seg Neutrophils # Man Lymphocytes # (Manual) Monocytes # (Manual) APTT Heparin Anti-Xa Level POC ABG pH POC ABG pCO2 POC ABG pO2 Sodium Potassium Chloride Carbon Dioxide BUN Creatinine Glucose POC Glucose 220 H 249 H 209 H Lactic Acid Calcium Phosphorus Total Bilirubin AST ALT Total Creatine Kinase CK-MB (CK-2) Troponin T Total Protein Albumin HDL Cholesterol Salicylates Acetaminophen Crossmatch 10/16/18 10/16/18 10/16/18 02:16 03:50 05:57 WBC RBC Hgb Hct MCV MCHC RDW Plt Count Lymph % (Auto) [place] % (Auto) [place] # Seg Neutrophils % Seg Neuts % (Manual) Lymphocytes % (Manual) Monocytes % (Manual) Seg Neutrophils # Seg Neutrophils # Man Lymphocytes # (Manual) Monocytes # (Manual) APTT Heparin Anti-Xa Level POC ABG pH POC ABG pCO2 55.8 H POC ABG pO2 Sodium Potassium Chloride Carbon Dioxide BUN Creatinine Glucose POC Glucose 110 H 209 H Lactic Acid Calcium Phosphorus Total Bilirubin AST ALT Total Creatine Kinase CK-MB (CK-2) Troponin T Total Protein Albumin HDL Cholesterol Salicylates Acetaminophen Crossmatch 10/16/18 10/16/18 10/16/18 10:51 12:51 15:01 WBC RBC Hgb Hct MCV MCHC RDW Plt Count Lymph % (Auto) [place] % (Auto) [place] # Seg Neutrophils % Seg Neuts % (Manual) Lymphocytes % (Manual) Monocytes % (Manual) Seg Neutrophils # Seg Neutrophils # Man Lymphocytes # (Manual) Monocytes # (Manual) APTT Heparin Anti-Xa Level POC ABG pH POC ABG pCO2 48.9 H POC ABG pO2 Sodium Potassium Chloride Carbon Dioxide BUN Creatinine Glucose POC Glucose 198 H 196 H Lactic Acid Calcium Phosphorus Total Bilirubin AST ALT Total Creatine Kinase CK-MB (CK-2) Troponin T Total Protein Albumin HDL Cholesterol Salicylates Acetaminophen Crossmatch 10/16/18 10/16/18 10/17/18 17:34 21:59 02:17 WBC RBC Hgb Hct MCV MCHC RDW Plt Count Lymph % (Auto) [place] % (Auto) [place] # Seg Neutrophils % Seg Neuts % (Manual) Lymphocytes % (Manual) Monocytes % (Manual) Seg Neutrophils # Seg Neutrophils # Man Lymphocytes # (Manual) Monocytes # (Manual) APTT Heparin Anti-Xa Level POC ABG pH POC ABG pCO2 POC ABG pO2 Sodium Potassium Chloride Carbon Dioxide BUN Creatinine Glucose POC Glucose 179 H 139 H 135 H Lactic Acid Calcium Phosphorus Total Bilirubin AST ALT Total Creatine Kinase CK-MB (CK-2) Troponin T Total Protein Albumin HDL Cholesterol Salicylates Acetaminophen Crossmatch 10/17/18 10/17/18 10/17/18 05:40 05:47 10:18 WBC RBC Hgb 11.3 L Hct 33.2 L MCV MCHC RDW Plt Count Lymph % (Auto) [place] % (Auto) [place] # Seg Neutrophils % Seg Neuts % (Manual) Lymphocytes % (Manual) Monocytes % (Manual) Seg Neutrophils # Seg Neutrophils # Man Lymphocytes # (Manual) Monocytes # (Manual) APTT Heparin Anti-Xa Level POC ABG pH POC ABG pCO2 POC ABG pO2 Sodium Potassium Chloride Carbon Dioxide BUN Creatinine Glucose POC Glucose 125 H 139 H Lactic Acid Calcium Phosphorus Total Bilirubin AST ALT Total Creatine Kinase CK-MB (CK-2) Troponin T Total Protein Albumin HDL Cholesterol Salicylates Acetaminophen Crossmatch 10/17/18 10/18/18 10/18/18 23:11 08:49 11:31 WBC RBC Hgb Hct MCV MCHC RDW Plt Count Lymph % (Auto) [place] % (Auto) [place] # Seg Neutrophils % Seg Neuts % (Manual) Lymphocytes % (Manual) Monocytes % (Manual) Seg Neutrophils # Seg Neutrophils # Man Lymphocytes # (Manual) Monocytes # (Manual) APTT Heparin Anti-Xa Level POC ABG pH POC ABG pCO2 POC ABG pO2 Sodium Potassium Chloride Carbon Dioxide BUN Creatinine Glucose POC Glucose 165 H 125 H 182 H Lactic Acid Calcium Phosphorus Total Bilirubin AST ALT Total Creatine Kinase CK-MB (CK-2) Troponin T Total Protein Albumin HDL Cholesterol Salicylates Acetaminophen Crossmatch 10/18/18 10/18/18 10/19/18 16:12 21:02 00:28 WBC RBC Hgb 11.4 L Hct 33.6 L MCV MCHC RDW Plt Count Lymph % (Auto) [place] % (Auto) 14.0 H [place] # 1.2 H Seg Neutrophils % Seg Neuts % (Manual) Lymphocytes % (Manual) Monocytes % (Manual) Seg Neutrophils # Seg Neutrophils # Man Lymphocytes # (Manual) Monocytes # (Manual) APTT Heparin Anti-Xa Level POC ABG pH POC ABG pCO2 POC ABG pO2 Sodium Potassium Chloride Carbon Dioxide BUN Creatinine Glucose POC Glucose 168 H 324 H Lactic Acid Calcium Phosphorus Total Bilirubin AST ALT Total Creatine Kinase CK-MB (CK-2) Troponin T Total Protein Albumin HDL Cholesterol Salicylates Acetaminophen Crossmatch 10/19/18 10/19/18 10/19/18 04:57 04:57 07:32 WBC RBC Hgb 11.7 L Hct 34.0 L MCV MCHC RDW Plt Count Lymph % (Auto) [place] % (Auto) [place] # Seg Neutrophils % Seg Neuts % (Manual) Lymphocytes % (Manual) Monocytes % (Manual) Seg Neutrophils # Seg Neutrophils # Man Lymphocytes # (Manual) Monocytes # (Manual) APTT Heparin Anti-Xa Level POC ABG pH POC ABG pCO2 POC ABG pO2 Sodium Potassium 3.5 L Chloride 108.6 H Carbon Dioxide BUN Creatinine 0.6 L Glucose POC Glucose 159 H Lactic Acid Calcium 7.9 L Phosphorus Total Bilirubin AST ALT Total Creatine Kinase CK-MB (CK-2) Troponin T Total Protein Albumin HDL Cholesterol Salicylates Acetaminophen Crossmatch 10/19/18 10/19/18 10/20/18 16:25 20:59 12:04 WBC RBC Hgb Hct MCV MCHC RDW Plt Count Lymph % (Auto) [place] % (Auto) [place] # Seg Neutrophils % Seg Neuts % (Manual) Lymphocytes % (Manual) Monocytes % (Manual) Seg Neutrophils # Seg Neutrophils # Man Lymphocytes # (Manual) Monocytes # (Manual) APTT Heparin Anti-Xa Level POC ABG pH POC ABG pCO2 POC ABG pO2 Sodium Potassium Chloride Carbon Dioxide BUN Creatinine Glucose POC Glucose 134 H 110 H 338 H Lactic Acid Calcium Phosphorus Total Bilirubin AST ALT Total Creatine Kinase CK-MB (CK-2) Troponin T Total Protein Albumin HDL Cholesterol Salicylates Acetaminophen Crossmatch 10/20/18 10/20/18 10/21/18 17:55 22:07 04:59 WBC RBC Hgb 11.6 L Hct 33.9 L MCV MCHC RDW Plt Count Lymph % (Auto) [place] % (Auto) 9.7 H [place] # 0.9 H Seg Neutrophils % 70.7 H Seg Neuts % (Manual) Lymphocytes % (Manual) Monocytes % (Manual) Seg Neutrophils # Seg Neutrophils # Man Lymphocytes # (Manual) Monocytes # (Manual) APTT Heparin Anti-Xa Level POC ABG pH POC ABG pCO2 POC ABG pO2 Sodium Potassium Chloride Carbon Dioxide BUN Creatinine Glucose POC Glucose 146 H 164 H Lactic Acid Calcium Phosphorus Total Bilirubin AST ALT Total Creatine Kinase CK-MB (CK-2) Troponin T Total Protein Albumin HDL Cholesterol Salicylates Acetaminophen Crossmatch 10/21/18 10/21/18 10/21/18 04:59 07:52 11:39 WBC RBC Hgb Hct MCV MCHC RDW Plt Count Lymph % (Auto) [place] % (Auto) [place] # Seg Neutrophils % Seg Neuts % (Manual) Lymphocytes % (Manual) Monocytes % (Manual) Seg Neutrophils # Seg Neutrophils # Man Lymphocytes # (Manual) Monocytes # (Manual) APTT Heparin Anti-Xa Level POC ABG pH POC ABG pCO2 POC ABG pO2 Sodium Potassium 3.5 L Chloride 107.1 H Carbon Dioxide BUN Creatinine 0.5 L Glucose 158 H POC Glucose 142 H 194 H Lactic Acid Calcium 7.5 L Phosphorus Total Bilirubin AST ALT Total Creatine Kinase CK-MB (CK-2) Troponin T Total Protein 5.6 L Albumin 2.0 L HDL Cholesterol Salicylates Acetaminophen Crossmatch 10/21/18 10/21/18 10/22/18 17:05 20:37 05:38 WBC RBC 3.48 L Hgb 10.8 L Hct 31.7 L MCV MCHC RDW Plt Count 458 H Lymph % (Auto) [place] % (Auto) 10.5 H [place] # Seg Neutrophils % Seg Neuts % (Manual) Lymphocytes % (Manual) Monocytes % (Manual) Seg Neutrophils # Seg Neutrophils # Man Lymphocytes # (Manual) Monocytes # (Manual) APTT Heparin Anti-Xa Level POC ABG pH POC ABG pCO2 POC ABG pO2 Sodium Potassium Chloride Carbon Dioxide BUN Creatinine Glucose POC Glucose 167 H 182 H Lactic Acid Calcium Phosphorus Total Bilirubin AST ALT Total Creatine Kinase CK-MB (CK-2) Troponin T Total Protein Albumin HDL Cholesterol Salicylates Acetaminophen Crossmatch 10/22/18 10/22/18 10/22/18 05:38 07:48 12:08 WBC RBC Hgb Hct MCV MCHC RDW Plt Count Lymph % (Auto) [place] % (Auto) [place] # Seg Neutrophils % Seg Neuts % (Manual) Lymphocytes % (Manual) Monocytes % (Manual) Seg Neutrophils # Seg Neutrophils # Man Lymphocytes # (Manual) Monocytes # (Manual) APTT Heparin Anti-Xa Level POC ABG pH POC ABG pCO2 POC ABG pO2 Sodium Potassium Chloride Carbon Dioxide BUN Creatinine 0.5 L Glucose 146 H POC Glucose 130 H 167 H Lactic Acid Calcium 7.8 L Phosphorus Total Bilirubin AST 41 H ALT Total Creatine Kinase CK-MB (CK-2) Troponin T Total Protein 5.5 L Albumin 2.1 L HDL Cholesterol Salicylates Acetaminophen Crossmatch 10/22/18 10/22/18 10/23/18 16:45 21:42 04:38 WBC RBC Hgb 11.7 L Hct 34.7 L MCV MCHC RDW Plt Count 523 H Lymph % (Auto) [place] % (Auto) 8.7 H [place] # Seg Neutrophils % 71.6 H Seg Neuts % (Manual) Lymphocytes % (Manual) Monocytes % (Manual) Seg Neutrophils # Seg Neutrophils # Man Lymphocytes # (Manual) Monocytes # (Manual) APTT Heparin Anti-Xa Level POC ABG pH POC ABG pCO2 POC ABG pO2 Sodium Potassium Chloride Carbon Dioxide BUN Creatinine Glucose POC Glucose 113 H 134 H Lactic Acid Calcium Phosphorus Total Bilirubin AST ALT Total Creatine Kinase CK-MB (CK-2) Troponin T Total Protein Albumin HDL Cholesterol Salicylates Acetaminophen Crossmatch 10/23/18 10/23/18 10/23/18 04:38 07:56 11:15 WBC RBC Hgb Hct MCV MCHC RDW Plt Count Lymph % (Auto) [place] % (Auto) [place] # Seg Neutrophils % Seg Neuts % (Manual) Lymphocytes % (Manual) Monocytes % (Manual) Seg Neutrophils # Seg Neutrophils # Man Lymphocytes # (Manual) Monocytes # (Manual) APTT Heparin Anti-Xa Level POC ABG pH POC ABG pCO2 POC ABG pO2 Sodium Potassium Chloride Carbon Dioxide BUN 7 L Creatinine 0.5 L Glucose 150 H POC Glucose 123 H 212 H Lactic Acid Calcium 8.0 L Phosphorus Total Bilirubin AST 55 H ALT Total Creatine Kinase CK-MB (CK-2) Troponin T Total Protein 6.2 L Albumin 2.3 L HDL Cholesterol Salicylates Acetaminophen Crossmatch 10/23/18 10/23/18 10/24/18 16:06 22:01 05:56 WBC 11.8 H RBC 3.64 L Hgb 11.2 L Hct 33.4 L MCV MCHC RDW Plt Count 564 H Lymph % (Auto) 11.3 L [place] % (Auto) [place] # Seg Neutrophils % 80.2 H Seg Neuts % (Manual) Lymphocytes % (Manual) Monocytes % (Manual) Seg Neutrophils # 9.4 H Seg Neutrophils # Man Lymphocytes # (Manual) Monocytes # (Manual) APTT Heparin Anti-Xa Level POC ABG pH POC ABG pCO2 POC ABG pO2 Sodium Potassium Chloride Carbon Dioxide BUN Creatinine Glucose POC Glucose 152 H 235 H Lactic Acid Calcium Phosphorus Total Bilirubin AST ALT Total Creatine Kinase CK-MB (CK-2) Troponin T Total Protein Albumin HDL Cholesterol Salicylates Acetaminophen Crossmatch 10/24/18 10/24/18 10/24/18 05:56 07:52 11:58 WBC RBC Hgb Hct MCV MCHC RDW Plt Count Lymph % (Auto) [place] % (Auto) [place] # Seg Neutrophils % Seg Neuts % (Manual) Lymphocytes % (Manual) Monocytes % (Manual) Seg Neutrophils # Seg Neutrophils # Man Lymphocytes # (Manual) Monocytes # (Manual) APTT Heparin Anti-Xa Level POC ABG pH POC ABG pCO2 POC ABG pO2 Sodium Potassium Chloride Carbon Dioxide BUN Creatinine 0.5 L Glucose 175 H POC Glucose 156 H 238 H Lactic Acid Calcium 8.0 L Phosphorus Total Bilirubin AST 44 H ALT Total Creatine Kinase CK-MB (CK-2) Troponin T Total Protein 6.2 L Albumin 2.4 L HDL Cholesterol Salicylates Acetaminophen Crossmatch 10/24/18 10/24/18 10/25/18 16:20 22:13 07:53 WBC RBC Hgb Hct MCV MCHC RDW Plt Count Lymph % (Auto) [place] % (Auto) [place] # Seg Neutrophils % Seg Neuts % (Manual) Lymphocytes % (Manual) Monocytes % (Manual) Seg Neutrophils # Seg Neutrophils # Man Lymphocytes # (Manual) Monocytes # (Manual) APTT Heparin Anti-Xa Level POC ABG pH POC ABG pCO2 POC ABG pO2 Sodium Potassium Chloride Carbon Dioxide BUN Creatinine Glucose POC Glucose 60 L 261 H 211 H Lactic Acid Calcium Phosphorus Total Bilirubin AST ALT Total Creatine Kinase CK-MB (CK-2) Troponin T Total Protein Albumin HDL Cholesterol Salicylates Acetaminophen Crossmatch 10/25/18 10/25/18 10/25/18 11:03 16:02 22:45 WBC RBC Hgb Hct MCV MCHC RDW Plt Count Lymph % (Auto) [place] % (Auto) [place] # Seg Neutrophils % Seg Neuts % (Manual) Lymphocytes % (Manual) Monocytes % (Manual) Seg Neutrophils # Seg Neutrophils # Man Lymphocytes # (Manual) Monocytes # (Manual) APTT Heparin Anti-Xa Level POC ABG pH POC ABG pCO2 POC ABG pO2 Sodium Potassium Chloride Carbon Dioxide BUN Creatinine Glucose POC Glucose 137 H 186 H 140 H Lactic Acid Calcium Phosphorus Total Bilirubin AST ALT Total Creatine Kinase CK-MB (CK-2) Troponin T Total Protein Albumin HDL Cholesterol Salicylates Acetaminophen Crossmatch 10/26/18 10/26/18 10/26/18 08:13 10:08 11:28 WBC RBC Hgb Hct MCV MCHC RDW Plt Count Lymph % (Auto) [place] % (Auto) [place] # Seg Neutrophils % Seg Neuts % (Manual) Lymphocytes % (Manual) Monocytes % (Manual) Seg Neutrophils # Seg Neutrophils # Man Lymphocytes # (Manual) Monocytes # (Manual) APTT Heparin Anti-Xa Level POC ABG pH POC ABG pCO2 POC ABG pO2 Sodium Potassium Chloride Carbon Dioxide BUN Creatinine Glucose POC Glucose 144 H 110 H 201 H Lactic Acid Calcium Phosphorus Total Bilirubin AST ALT Total Creatine Kinase CK-MB (CK-2) Troponin T Total Protein Albumin HDL Cholesterol Salicylates Acetaminophen Crossmatch 10/26/18 10/26/18 10/27/18 16:36 22:29 07:34 WBC RBC Hgb Hct MCV MCHC RDW Plt Count Lymph % (Auto) [place] % (Auto) [place] # Seg Neutrophils % Seg Neuts % (Manual) Lymphocytes % (Manual) Monocytes % (Manual) Seg Neutrophils # Seg Neutrophils # Man Lymphocytes # (Manual) Monocytes # (Manual) APTT Heparin Anti-Xa Level POC ABG pH POC ABG pCO2 POC ABG pO2 Sodium Potassium Chloride Carbon Dioxide BUN Creatinine Glucose POC Glucose 147 H 302 H 182 H Lactic Acid Calcium Phosphorus Total Bilirubin AST ALT Total Creatine Kinase CK-MB (CK-2) Troponin T Total Protein Albumin HDL Cholesterol Salicylates Acetaminophen Crossmatch 10/27/18 10/27/18 10/27/18 11:57 13:33 14:55 WBC RBC Hgb Hct MCV MCHC RDW Plt Count 550 H Lymph % (Auto) [place] % (Auto) [place] # Seg Neutrophils % Seg Neuts % (Manual) Lymphocytes % (Manual) Monocytes % (Manual) Seg Neutrophils # Seg Neutrophils # Man Lymphocytes # (Manual) Monocytes # (Manual) APTT Heparin Anti-Xa Level POC ABG pH POC ABG pCO2 POC ABG pO2 Sodium Potassium Chloride Carbon Dioxide BUN Creatinine Glucose POC Glucose 209 H Lactic Acid Calcium Phosphorus Total Bilirubin AST ALT Total Creatine Kinase CK-MB (CK-2) Troponin T Total Protein Albumin HDL Cholesterol Salicylates Acetaminophen Crossmatch See Detail 10/27/18 10/27/18 10/28/18 17:09 21:45 07:45 WBC RBC Hgb Hct MCV MCHC RDW Plt Count Lymph % (Auto) [place] % (Auto) [place] # Seg Neutrophils % Seg Neuts % (Manual) Lymphocytes % (Manual) Monocytes % (Manual) Seg Neutrophils # Seg Neutrophils # Man Lymphocytes # (Manual) Monocytes # (Manual) APTT Heparin Anti-Xa Level POC ABG pH POC ABG pCO2 POC ABG pO2 Sodium Potassium Chloride Carbon Dioxide BUN Creatinine Glucose POC Glucose 233 H 136 H 201 H Lactic Acid Calcium Phosphorus Total Bilirubin AST ALT Total Creatine Kinase CK-MB (CK-2) Troponin T Total Protein Albumin HDL Cholesterol Salicylates Acetaminophen Crossmatch 10/28/18 10/28/18 10/28/18 11:17 16:34 19:51 WBC RBC Hgb Hct MCV MCHC RDW Plt Count Lymph % (Auto) [place] % (Auto) [place] # Seg Neutrophils % Seg Neuts % (Manual) Lymphocytes % (Manual) Monocytes % (Manual) Seg Neutrophils # Seg Neutrophils # Man Lymphocytes # (Manual) Monocytes # (Manual) APTT Heparin Anti-Xa Level < 0.10 L POC ABG pH POC ABG pCO2 POC ABG pO2 Sodium Potassium Chloride Carbon Dioxide BUN Creatinine Glucose POC Glucose 116 H 168 H Lactic Acid Calcium Phosphorus Total Bilirubin AST ALT Total Creatine Kinase CK-MB (CK-2) Troponin T Total Protein Albumin HDL Cholesterol Salicylates Acetaminophen Crossmatch 10/28/18 10/29/18 10/29/18 21:52 07:11 07:11 WBC RBC Hgb Hct MCV MCHC RDW Plt Count 470 H Lymph % (Auto) [place] % (Auto) [place] # Seg Neutrophils % Seg Neuts % (Manual) Lymphocytes % (Manual) Monocytes % (Manual) Seg Neutrophils # Seg Neutrophils # Man Lymphocytes # (Manual) Monocytes # (Manual) APTT Heparin Anti-Xa Level 0.13 L POC ABG pH POC ABG pCO2 POC ABG pO2 Sodium Potassium Chloride Carbon Dioxide BUN Creatinine Glucose POC Glucose 159 H Lactic Acid Calcium Phosphorus Total Bilirubin AST ALT Total Creatine Kinase CK-MB (CK-2) Troponin T Total Protein Albumin HDL Cholesterol Salicylates Acetaminophen Crossmatch 10/29/18 10/29/18 10/29/18 07:11 07:43 11:29 WBC RBC Hgb Hct MCV MCHC RDW Plt Count Lymph % (Auto) [place] % (Auto) [place] # Seg Neutrophils % Seg Neuts % (Manual) Lymphocytes % (Manual) Monocytes % (Manual) Seg Neutrophils # Seg Neutrophils # Man Lymphocytes # (Manual) Monocytes # (Manual) APTT Heparin Anti-Xa Level POC ABG pH POC ABG pCO2 POC ABG pO2 Sodium Potassium Chloride Carbon Dioxide BUN 7 L Creatinine 0.5 L Glucose 122 H POC Glucose 147 H 165 H Lactic Acid Calcium 8.2 L Phosphorus Total Bilirubin AST ALT Total Creatine Kinase CK-MB (CK-2) Troponin T Total Protein Albumin HDL Cholesterol Salicylates Acetaminophen Crossmatch 10/29/18 10/29/18 10/30/18 19:50 22:11 00:11 WBC RBC Hgb Hct MCV MCHC RDW Plt Count Lymph % (Auto) [place] % (Auto) [place] # Seg Neutrophils % Seg Neuts % (Manual) Lymphocytes % (Manual) Monocytes % (Manual) Seg Neutrophils # Seg Neutrophils # Man Lymphocytes # (Manual) Monocytes # (Manual) APTT Heparin Anti-Xa Level 0.25 L POC ABG pH POC ABG pCO2 POC ABG pO2 Sodium Potassium Chloride Carbon Dioxide BUN Creatinine Glucose POC Glucose 166 H 173 H Lactic Acid Calcium Phosphorus Total Bilirubin AST ALT Total Creatine Kinase CK-MB (CK-2) Troponin T Total Protein Albumin HDL Cholesterol Salicylates Acetaminophen Crossmatch 10/30/18 10/30/18 10/30/18 04:22 04:22 07:47 WBC 27.0 H RBC 3.16 L Hgb 10.0 L Hct 28.8 L D MCV MCHC 35 H RDW Plt Count Lymph % (Auto) [place] % (Auto) [place] # Seg Neutrophils % Seg Neuts % (Manual) Lymphocytes % (Manual) 1.5 L Monocytes % (Manual) Seg Neutrophils # Seg Neutrophils # Man 18.6 H Lymphocytes # (Manual) 0.4 L Monocytes # (Manual) APTT Heparin Anti-Xa Level POC ABG pH POC ABG pCO2 POC ABG pO2 Sodium Potassium Chloride Carbon Dioxide BUN Creatinine Glucose 224 H POC Glucose 168 H Lactic Acid Calcium 7.5 L Phosphorus Total Bilirubin AST ALT Total Creatine Kinase CK-MB (CK-2) Troponin T Total Protein Albumin HDL Cholesterol Salicylates Acetaminophen Crossmatch 10/30/18 10/30/18 10/30/18 07:55 11:20 16:41 WBC RBC Hgb Hct MCV MCHC RDW Plt Count Lymph % (Auto) [place] % (Auto) [place] # Seg Neutrophils % Seg Neuts % (Manual) Lymphocytes % (Manual) Monocytes % (Manual) Seg Neutrophils # Seg Neutrophils # Man Lymphocytes # (Manual) Monocytes # (Manual) APTT Heparin Anti-Xa Level < 0.10 L POC ABG pH POC ABG pCO2 POC ABG pO2 Sodium Potassium Chloride Carbon Dioxide BUN Creatinine Glucose POC Glucose 165 H 142 H Lactic Acid Calcium Phosphorus Total Bilirubin AST ALT Total Creatine Kinase CK-MB (CK-2) Troponin T Total Protein Albumin HDL Cholesterol Salicylates Acetaminophen Crossmatch 10/30/18 10/30/18 10/31/18 20:51 21:20 05:21 WBC RBC Hgb 9.0 L Hct 26.6 L MCV MCHC RDW Plt Count Lymph % (Auto) [place] % (Auto) [place] # Seg Neutrophils % Seg Neuts % (Manual) Lymphocytes % (Manual) Monocytes % (Manual) Seg Neutrophils # Seg Neutrophils # Man Lymphocytes # (Manual) Monocytes # (Manual) APTT Heparin Anti-Xa Level < 0.10 L POC ABG pH POC ABG pCO2 POC ABG pO2 Sodium Potassium Chloride Carbon Dioxide BUN Creatinine Glucose POC Glucose 136 H Lactic Acid Calcium Phosphorus Total Bilirubin AST ALT Total Creatine Kinase CK-MB (CK-2) Troponin T Total Protein Albumin HDL Cholesterol Salicylates Acetaminophen Crossmatch 10/31/18 10/31/18 10/31/18 08:07 10:19 12:12 WBC RBC Hgb Hct MCV MCHC RDW Plt Count Lymph % (Auto) [place] % (Auto) [place] # Seg Neutrophils % Seg Neuts % (Manual) Lymphocytes % (Manual) Monocytes % (Manual) Seg Neutrophils # Seg Neutrophils # Man Lymphocytes # (Manual) Monocytes # (Manual) APTT Heparin Anti-Xa Level POC ABG pH POC ABG pCO2 POC ABG pO2 Sodium Potassium Chloride Carbon Dioxide BUN Creatinine Glucose POC Glucose 155 H 194 H Lactic Acid Calcium Phosphorus Total Bilirubin AST ALT Total Creatine Kinase CK-MB (CK-2) Troponin T Total Protein Albumin HDL Cholesterol Salicylates Acetaminophen Crossmatch See Detail 10/31/18 10/31/18 10/31/18 16:07 16:56 21:14 WBC RBC Hgb Hct MCV MCHC RDW Plt Count Lymph % (Auto) [place] % (Auto) [place] # Seg Neutrophils % Seg Neuts % (Manual) Lymphocytes % (Manual) Monocytes % (Manual) Seg Neutrophils # Seg Neutrophils # Man Lymphocytes # (Manual) Monocytes # (Manual) APTT Heparin Anti-Xa Level 1.20 H POC ABG pH POC ABG pCO2 POC ABG pO2 Sodium Potassium Chloride Carbon Dioxide BUN Creatinine Glucose POC Glucose 354 H 234 H Lactic Acid Calcium Phosphorus Total Bilirubin AST ALT Total Creatine Kinase CK-MB (CK-2) Troponin T Total Protein Albumin HDL Cholesterol Salicylates Acetaminophen Crossmatch 11/01/18 11/01/18 11/01/18 00:52 05:52 05:52 WBC 12.5 H RBC 2.95 L Hgb 9.1 L Hct 27.4 L MCV MCHC RDW 15.3 H Plt Count Lymph % (Auto) [place] % (Auto) [place] # Seg Neutrophils % Seg Neuts % (Manual) Lymphocytes % (Manual) Monocytes % (Manual) Seg Neutrophils # Seg Neutrophils # Man Lymphocytes # (Manual) Monocytes # (Manual) APTT Heparin Anti-Xa Level 1.53 H POC ABG pH POC ABG pCO2 POC ABG pO2 Sodium Potassium Chloride Carbon Dioxide BUN Creatinine 0.5 L Glucose 169 H POC Glucose Lactic Acid Calcium 8.3 L Phosphorus Total Bilirubin AST ALT Total Creatine Kinase CK-MB (CK-2) Troponin T Total Protein 6.2 L Albumin 2.3 L HDL Cholesterol Salicylates Acetaminophen Crossmatch 11/01/18 11/01/18 11/01/18 08:17 10:57 11:38 WBC RBC Hgb Hct MCV MCHC RDW Plt Count Lymph % (Auto) [place] % (Auto) [place] # Seg Neutrophils % Seg Neuts % (Manual) Lymphocytes % (Manual) Monocytes % (Manual) Seg Neutrophils # Seg Neutrophils # Man Lymphocytes # (Manual) Monocytes # (Manual) APTT Heparin Anti-Xa Level 1.05 H POC ABG pH POC ABG pCO2 POC ABG pO2 Sodium Potassium Chloride Carbon Dioxide BUN Creatinine Glucose POC Glucose 158 H 133 H Lactic Acid Calcium Phosphorus Total Bilirubin AST ALT Total Creatine Kinase CK-MB (CK-2) Troponin T Total Protein Albumin HDL Cholesterol Salicylates Acetaminophen Crossmatch 11/01/18 11/01/18 11/02/18 17:08 21:23 04:56 WBC RBC 3.02 L Hgb 9.5 L Hct 28.0 L MCV MCHC RDW Plt Count Lymph % (Auto) [place] % (Auto) [place] # Seg Neutrophils % Seg Neuts % (Manual) Lymphocytes % (Manual) Monocytes % (Manual) Seg Neutrophils # Seg Neutrophils # Man Lymphocytes # (Manual) Monocytes # (Manual) APTT Heparin Anti-Xa Level POC ABG pH POC ABG pCO2 POC ABG pO2 Sodium Potassium Chloride Carbon Dioxide BUN Creatinine Glucose POC Glucose 156 H 213 H Lactic Acid Calcium Phosphorus Total Bilirubin AST ALT Total Creatine Kinase CK-MB (CK-2) Troponin T Total Protein Albumin HDL Cholesterol Salicylates Acetaminophen Crossmatch 11/02/18 11/02/18 11/02/18 04:56 08:38 11:23 WBC RBC Hgb Hct MCV MCHC RDW Plt Count Lymph % (Auto) [place] % (Auto) [place] # Seg Neutrophils % Seg Neuts % (Manual) Lymphocytes % (Manual) Monocytes % (Manual) Seg Neutrophils # Seg Neutrophils # Man Lymphocytes # (Manual) Monocytes # (Manual) APTT Heparin Anti-Xa Level POC ABG pH POC ABG pCO2 POC ABG pO2 Sodium Potassium Chloride Carbon Dioxide BUN Creatinine 0.5 L Glucose 141 H POC Glucose 173 H 272 H Lactic Acid Calcium 8.2 L Phosphorus Total Bilirubin AST 43 H ALT Total Creatine Kinase CK-MB (CK-2) Troponin T Total Protein 6.1 L Albumin 2.2 L HDL Cholesterol Salicylates Acetaminophen Crossmatch 11/02/18 11/03/18 11/03/18 22:16 04:38 04:38 WBC 11.6 H RBC 3.20 L Hgb 9.8 L Hct 29.2 L MCV MCHC RDW Plt Count Lymph % (Auto) [place] % (Auto) [place] # Seg Neutrophils % Seg Neuts % (Manual) Lymphocytes % (Manual) Monocytes % (Manual) Seg Neutrophils # Seg Neutrophils # Man Lymphocytes # (Manual) Monocytes # (Manual) APTT Heparin Anti-Xa Level POC ABG pH POC ABG pCO2 POC ABG pO2 Sodium 135 L Potassium Chloride Carbon Dioxide BUN Creatinine 0.5 L Glucose 160 H POC Glucose 182 H Lactic Acid Calcium Phosphorus Total Bilirubin AST 46 H ALT Total Creatine Kinase CK-MB (CK-2) Troponin T Total Protein Albumin 2.3 L HDL Cholesterol Salicylates Acetaminophen Crossmatch 11/03/18 11/03/18 11/03/18 07:52 10:59 18:10 WBC RBC Hgb Hct MCV MCHC RDW Plt Count Lymph % (Auto) [place] % (Auto) [place] # Seg Neutrophils % Seg Neuts % (Manual) Lymphocytes % (Manual) Monocytes % (Manual) Seg Neutrophils # Seg Neutrophils # Man Lymphocytes # (Manual) Monocytes # (Manual) APTT Heparin Anti-Xa Level POC ABG pH POC ABG pCO2 POC ABG pO2 Sodium Potassium Chloride Carbon Dioxide BUN Creatinine Glucose POC Glucose 180 H 159 H 169 H Lactic Acid Calcium Phosphorus Total Bilirubin AST ALT Total Creatine Kinase CK-MB (CK-2) Troponin T Total Protein Albumin HDL Cholesterol Salicylates Acetaminophen Crossmatch Allied health notes reviewed: nursing
--- NOTE | 2018-11-04 07:24 | Progress Note ---
Assessment and Plan Assessment and plan: Patient is a 58 yo man with a history of COPD, DM, hypertension, asthma, peripheral neuropathy, chronic hepatitis C virus, panic attack. anxiety disorder, polysubstance abuse including alcohol, cocaine and heroin who presented to [facility] ED on 10/11/18 with AMS. He was diagnosis with septic shock due to pneumonia, placed on abx and vasopressors. He was also diagnosis with DKA/respiratory failure/Status epilepticus/ARF. Patient s/p left BKA, right open thrombectomy and aortic stenting and bilateral common iliac artery stenting but right EIA occluded requiring another open thrombectomy and stenting of the right iliac system. 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 followed by revascularization right leg on 10/31/18: Vascular following, input noted, started Eliquis -Acute/subacute right CVA, Initial CT head, no acute finding, 10/13/18 found to have left-sided weakness, MRI brain showed numerous acute/subacute multilobar infarcts involving the cerebrum and cerebellum including Hemorrhagic transformation of the right frontal and biparietal lobes, was Not a candidate for tPA, monitor off aspirin per teleneurology, QUIQUE ; no thrombus or shunt, Speech recommended pureed diet -Severe sepsis with shock; present on admission Probably due to LLL aspiration pneumonia, completed total 7 days of antibiotics, off vasopressors -Paroxysmal atrial fibrillation. on Eliquis Cardiology is following -LLL pneumonia: completed treatment -Acute respiratory failure with hypoxia and hypercapnia: Requiring intubation, s/p extubation, treat with nebs and supplemental O2 as needed -DKA, resolved: cont SSI for now, diabetic diet -Acute toxic/metabolic encephalopathy, improved -Seizure disorder; seizure precautions, no new episodes of seizure, Ativan when necessary, neurology did not recommend antiepileptic medications -Elevated troponin/NSTEMI type 2, Echocardiogram for further evaluation - Ef 25- 30%, Cardiology consulted, medical Mx for now, -Acute systolic CHF, Ef 25-30%, anti-failure medications, Cardiology is following -ARF, due to ATN and vasomotor nephropathy, poa, resolved -Hyperkalemia, resolved -Abnormal LFT, Probably due to sepsis, resolving and chronic hepatitis C virus infection, Abdominal US showed no sign of cirrhosis: monitor cmp -Anemia, appears acute on chronic AOCD: monitor closely on iv heparin drip -Severe protein calorie malnutrition, bmi 14.8; nutrition supplements, Dietitian consulted -DVT prophylaxis with Eliquis and GI prophylaxis with famotidine -Tobacco abuse. Patient with a long smoking history of one pack per day or more since age 9. Patient was counseled on smoking cessation. Disposition: continue inpatient care. Vascular procedure on right leg 10/31/18 and now the right foot is warm. Possible rehab vs Subacute rehab placement==>Physical therapy recommended Subacute Rehab transfer out of ICU on 11/01/18 to IM, now transfer out IMCU 11/03/18 refusing labwork, monitor cbc and bmp closely, counseling done restraints renewed History Interval history: Patient was seen and examined. Follow-up on current diagnosis of PVD. No overnight events reported to me. Patient denies any chest pain, shortness breath, nausea/vomiting or severe headaches. Imaging, nursing note, chart, labs and old chart reviewed. Discussed with patient. Hospitalist Physical - Physical exam Narrative exam: Gen: severely cachectic, bmi 14.8, disable, NAD, Awake, Alert, Orientated x 2 HEENT: NCAT, EOMI, PERRL, OP Clear Neck: supple, no adenopathy, no thyromegaly, no JVD CVS/Heart: RRR, normal S1S2, pulses present weak, right foot warm since in tervention (prior notes incorrect) Chest/Lungs: diminished bs bilateral, Symmetrical chest expansion, good air entry bilaterally GI/Abdomen: soft, NTND, good bowel sounds, no guarding or rebound /Bladder: no suprapubic tenderness, no CVA or paraspinal tenderness Extermity/Skin: left bka, right toes and foot dry gangrene MSK: FROM x 4 Neuro: CN 2-12 grossly intact, no new focal deficits Psych: calm but confused at times - Constitutional Vitals: Temp Pulse Resp BP Pulse Ox 97.5 F L 84 18 96/58 89 11/04/18 04:44 11/04/18 04:44 11/04/18 04:44 11/04/18 04:44 11/04/18 04:44 General appearance: Present: other (somewhat agitated but cooperative) Results - Labs CBC & Chem 7: 11/03/18 04:38 11/03/18 04:38 Labs: Laboratory Last Values WBC 11.6 K/mm3 (4.5-11.0) H 11/03/18 04:38 RBC 3.20 M/mm3 (3.65-5.03) L 11/03/18 04:38 Hgb 9.8 gm/dl (11.8-15.2) L 11/03/18 04:38 Hct 29.2 % (35.5-45.6) L 11/03/18 04:38 MCV 91 fl (84-94) 11/03/18 04:38 MCH 31 pg (28-32) 11/03/18 04:38 MCHC 34 % (32-34) 11/03/18 04:38 RDW 15.0 % (13.2-15.2) 11/03/18 04:38 Plt Count 280 K/mm3 (140-440) 11/03/18 04:38 Lymph % (Auto) 11.3 % (13.4-35.0) L 10/24/18 05:56 Mclennan % (Auto) 7.1 % (0.0-7.3) 10/24/18 05:56 Eos % (Auto) 1.0 % (0.0-4.3) 10/24/18 05:56 Baso % (Auto) 0.4 % (0.0-1.8) 10/24/18 05:56 Lymph # 1.3 K/mm3 (1.2-5.4) 10/24/18 05:56 Mclennan # 0.8 K/mm3 (0.0-0.8) 10/24/18 05:56 Eos # 0.1 K/mm3 (0.0-0.4) 10/24/18 05:56 Baso # 0.0 K/mm3 (0.0-0.1) 10/24/18 05:56 Add Manual Diff Complete 10/30/18 04:22 Total Counted 200 10/30/18 04:22 Seg Neutrophils % Curling Machine Operator 10/30/18 04:22 Seg Neuts % (Manual) 69.0 % (40.0-70.0) 10/30/18 04:22 26.0 % 10/30/18 04:22 1.5 % (13.4-35.0) L 10/30/18 04:22 Reactive Lymphs % (Man) 0 % 10/30/18 04:22 2.0 % (0.0-7.3) 10/30/18 04:22 0 % (0.0-4.3) 10/30/18 04:22 0 % (0.0-1.8) 10/30/18 04:22 1.0 % 10/30/18 04:22 0.5 % 10/30/18 04:22 0 % 10/30/18 04:22 0 % 10/30/18 04:22 Nucleated RBC % Not Reportable 10/30/18 04:22 Seg Neutrophils # 9.4 K/mm3 (1.8-7.7) H 10/24/18 05:56 Seg Neutrophils # Man 18.6 K/mm3 (1.8-7.7) H 10/30/18 04:22 Band Neutrophils # 7.0 K/mm3 10/30/18 04:22 0.4 K/mm3 (1.2-5.4) L 10/30/18 04:22 Abs React Lymphs (Man) 0.0 K/mm3 10/30/18 04:22 0.5 K/mm3 (0.0-0.8) 10/30/18 04:22 0.0 K/mm3 (0.0-0.4) 10/30/18 04:22 0.0 K/mm3 (0.0-0.1) 10/30/18 04:22 0.3 K/mm3 10/30/18 04:22 0.1 K/mm3 10/30/18 04:22 0.0 K/mm3 10/30/18 04:22 Blast Cells # 0.0 K/mm3 10/30/18 04:22 Pathologist Review 10/11/18 00:16 WBC Morphology Not Reportable 10/30/18 04:22 WBC Morphology TNR 10/30/18 04:22 Hypersegmented Neuts Not Reportable 10/30/18 04:22 Hyposegmented Neuts Not Reportable 10/30/18 04:22 Hypogranular Neuts Not Reportable 10/30/18 04:22 Not Reportable 10/30/18 04:22 Not Reportable 10/30/18 04:22 Not Reportable 10/30/18 04:22 Not Reportable 10/30/18 04:22 Not Reportable 10/30/18 04:22 Not Reportable 10/30/18 04:22 Consistent w auto 10/30/18 04:22 Not Reportable 10/30/18 04:22 Plt Clumps, EDTA Not Reportable 10/30/18 04:22 Not Reportable 10/30/18 04:22 Not Reportable 10/30/18 04:22 Not Reportable 10/30/18 04:22 Plt Morphology Comment Not Reportable 10/30/18 04:22 RBC Morphology Not Reportable 10/30/18 04:22 Dimorphic RBCs Not Reportable 10/30/18 04:22 Not Reportable 10/30/18 04:22 Not Reportable 10/30/18 04:22 Not Reportable 10/30/18 04:22 Not Reportable 10/30/18 04:22 Not Reportable 10/30/18 04:22 Not Reportable 10/30/18 04:22 Not Reportable 10/30/18 04:22 Not Reportable 10/30/18 04:22 Not Reportable 10/30/18 04:22 Not Reportable 10/30/18 04:22 Not Reportable 10/30/18 04:22 Not Reportable 10/30/18 04:22 Not Reportable 10/30/18 04:22 Not Reportable 10/30/18 04:22 Not Reportable 10/30/18 04:22 Not Reportable 10/30/18 04:22 Not Reportable 10/30/18 04:22 Not Reportable 10/30/18 04:22 Not Reportable 10/30/18 04:22 Acanthocytes (Spur) Not Reportable 10/30/18 04:22 Rouleaux Not Reportable 10/30/18 04:22 Not Reportable 10/30/18 04:22 Not Reportable 10/30/18 04:22 Not Reportable 10/30/18 04:22 Not Reportable 10/30/18 04:22 Hem Pathologist Commnt No 10/30/18 04:22 PT 13.9 Sec. (12.2-14.9) 10/29/18 07:11 INR 1.01 (0.87-1.13) 10/29/18 07:11 APTT 30.3 Sec. (24.2-36.6) 10/27/18 13:33 Heparin Anti-Xa Level 1.05 U.I./ml (0.3-0.7) H 11/01/18 11:38 Heparin Anti-Xa, Unfract Negative (Negative) 10/15/18 12:00 POC ABG pH 7.393 (7.35-7.45) 10/16/18 12:51 POC ABG pCO2 48.9 (35-45) H 10/16/18 12:51 POC ABG pO2 92 (80-105) 10/16/18 12:51 POC ABG HCO3 29.8 (22-26 mml/L) 10/16/18 12:51 POC ABG Total CO2 31 (23-27mmol/L) 10/16/18 12:51 POC ABG O2 Sat 97 10/16/18 12:51 POC ABG Base Excess 5 ((-2) - (+3)mmol/L) 10/16/18 12:51 35 % 10/16/18 12:51 Sodium 135 mmol/L (137-145) L 11/03/18 04:38 Potassium 3.9 mmol/L (3.6-5.0) 11/03/18 04:38 Chloride 98.3 mmol/L (98-107) 11/03/18 04:38 Carbon Dioxide 27 mmol/L (22-30) 11/03/18 04:38 14 mmol/L 11/03/18 04:38 BUN 14 mg/dL (9-20) 11/03/18 04:38 0.5 mg/dL (0.8-1.5) L 11/03/18 04:38 Estimated GFR > 60 ml/min 11/03/18 04:38 28 % 11/03/18 04:38 Glucose 160 mg/dL (75-100) H 11/03/18 04:38 POC Glucose 82 (70-105) 11/03/18 21:18 Lactic Acid 2.70 mmol/L (0.7-2.0) H* 10/11/18 12:30 Calcium 8.9 mg/dL (8.4-10.2) 11/03/18 04:38 Phosphorus 2.80 mg/dL (2.5-4.5) 10/21/18 04:59 Magnesium 1.70 mg/dL (1.7-2.3) 11/01/18 05:52 0.70 mg/dL (0.1-1.2) 11/03/18 04:38 AST 46 units/L (5-40) H 11/03/18 04:38 ALT 22 units/L (7-56) 11/03/18 04:38 49 units/L (35-129) 11/03/18 04:38 3647 units/L (55-170) H 10/12/18 04:04 CK-MB (CK-2) 48.3 ng/mL (0.0-4.0) H 10/12/18 04:04 CK-MB (CK-2) Rel Index 1.3 (0-4) 10/12/18 04:04 0.816 ng/mL (0.00-0.029) H* 10/13/18 16:15 6.9 g/dL (6.3-8.2) 11/03/18 04:38 2.3 g/dL (3.9-5) L 11/03/18 04:38 0.5 % 11/03/18 04:38 Triglycerides 87 mg/dL (2-149) 10/11/18 00:16 Cholesterol 73 mg/dL (50-199) 10/11/18 00:16 51 mg/dL (50-130) 10/11/18 00:16 19 mg/dL (40-59) L 10/11/18 00:16 3.84 % 10/11/18 00:16 See scanned report 10/15/18 12:00 Yellow (Yellow) 10/11/18 01:42 Cloudy (Clear) 10/11/18 01:42 6.0 (5.0-7.0) 10/11/18 01:42 Ur Specific [place] 1.011 (1.003-1.030) 10/11/18 01:42 100 mg/dl mg/dL (Negative) 10/11/18 01:42 >=500 mg/dL (Negative) 10/11/18 01:42 Neg mg/dL (Negative) 10/11/18 01:42 Mod (Negative) 10/11/18 01:42 Neg (Negative) 10/11/18 01:42 Neg (Negative) 10/11/18 01:42 4.0 mg/dL (<2.0) 10/11/18 01:42 Ur Leukocyte Esterase Neg (Negative) 10/11/18 01:42 5.0 /HPF (0.0-6.0) 10/11/18 01:42 2.0 /HPF (0.0-6.0) 10/11/18 01:42 U Epithel Cells (Auto) < 1.0 /HPF (0-13.0) 10/11/18 01:42 Amorphous Crystals 1+ 10/11/18 01:42 Few /HPF 10/11/18 01:42 2+ /HPF (ARC CUTTER) 10/11/18 01:42 Vancomycin Trough 8.3 ug/mL (5.0-20.0) 10/13/18 05:40 Salicylates < 0.3 mg/dL (2.8-20.0) L 10/11/18 00:16 Presumptive positive 10/11/18 01:42 Presumptive negative 10/11/18 01:42 Acetaminophen < 5.0 ug/mL (10.0-30.0) L 10/11/18 00:16 Ur Barbiturates Screen Presumptive negative 10/11/18 01:42 Ur Phencyclidine Scrn Presumptive negative 10/11/18 01:42 Ur Amphetamines Screen Presumptive positive 10/11/18 01:42 U Benzodiazepines Scrn Presumptive positive 10/11/18 01:42 Presumptive negative 10/11/18 01:42 U Marijuana (THC) Screen Presumptive negative 10/11/18 01:42 Disclamer 10/11/18 01:42 Plasma/Serum Alcohol < 0.01 % (0-0.07) 10/11/18 00:16 Heparin-induced Plt Ab Negative (Negative) 10/15/18 12:00 UF Heparin High Dose 0 % Release 10/15/18 12:00 AURELIO UFH Low Dose 0.1 0 % Release 10/15/18 12:00 AURELIO UFH Low Dose 0.5 0 % Release 10/15/18 12:00 Blood Type O POSITIVE 10/31/18 08:07 Antibody Screen Positive 10/31/18 08:07 Antibody Identification Negative 10/31/18 08:07 Direct Antiglob Test Negative 10/31/18 08:07 SHASHANK, Poly Interpret Negative 10/31/18 08:07 Crossmatch See Detail 10/31/18 08:07 Active Medications - Current Medications Current Medications: Generic Name Dose Route Start Last Admin Trade Name Freq PRN Reason Stop Dose Admin Acetaminophen 650 mg 10/11/18 04:04 10/21/18 22:21 Tylenol PO 650 mg Q4H PRN Administration Pain MILD(1-3)/Fever >100.5/HOLLINS Albuterol 2.5 mg 10/19/18 00:54 Proventil IH Q4HRT PRN Shortness Of Breath Albuterol/Ipratropium 1 ampul 10/19/18 08:00 11/03/18 20:41 Duoneb *Not For Prn Use* IH 1 ampul TIDRT ISAAC Administration Alprazolam 1 mg 10/20/18 13:06 11/03/18 18:33 Xanax PO 1 mg TID PRN Administration Anxiety Apixaban 10 mg 11/01/18 16:00 11/03/18 22:20 Eliquis PO 11/08/18 10:01 10 mg Q12HR ISAAC Administration Protocol Apixaban 5 mg 11/08/18 22:00 Eliquis PO Q12HR ISAAC Protocol Aspirin 81 mg 11/01/18 16:00 11/03/18 10:44 Halfprin Ec PO 81 mg QDAY ISAAC Administration Buprenorphine HCl 3 each 11/03/18 15:00 11/03/18 16:39 Suboxone 2 Mg-0.5 Mg SL 3 each QDAY ISAAC Administration Citalopram Hydrobromide 10 mg 10/21/18 10:00 11/03/18 10:45 Celexa PO 10 mg QDAY ISAAC Administration Dextrose 0 ml 10/11/18 03:57 10/11/18 10:18 D50w (25gm) Syringe IV 10 ml PRN PRN Administration Hypoglycemia Famotidine 20 mg 10/15/18 10:00 11/03/18 22:20 Pepcid PO 20 mg BID ISAAC Administration Insulin Human Regular 0 units 10/17/18 11:30 11/03/18 22:20 Humulin R SUB-Q Not Given ACHS ISAAC Protocol Metoprolol Tartrate 25 mg 10/18/18 22:00 11/03/18 22:21 Lopressor PO 25 mg BID ISAAC Administration Metoprolol Tartrate 2.5 mg 10/18/18 18:51 10/18/18 22:19 Lopressor IV 2.5 mg Q6H PRN Administration Tachyarrhythmias Naloxone HCl 0.1 mg 10/29/18 16:03 Narcan 0.4 Mg/1 Ml IV Q2MIN PRN Res Rate </= 8 or 02 SAT < 92% Ondansetron HCl 4 mg 10/11/18 04:04 11/01/18 22:12 Zofran IV 4 mg Q8H PRN Administration Nausea And Vomiting Oxycodone/Acetaminophen 1 tab 10/18/18 13:45 11/03/18 16:29 Percocet 5/325 PO 1 tab Q6H PRN Administration Pain, Moderate (4-6) Quetiapine Fumarate 200 mg 10/14/18 22:00 11/03/18 22:21 Seroquel PO 200 mg QHS ISAAC Administration Nutrition/Malnutrition Assess - Dietary Evaluation Nutrition/Malnutrition Findings: Nutrition Notes Start: 10/11/18 12:39 Freq: Status: Active Protocol: Document 11/02/18 11:12 SHERLY (Rec: 11/02/18 11:13 SHERLY [email or web address] [email or web address]) Nutrition Notes Need for Assessment generated from: Low BMI Initial or Follow up Brief Note Subjective/Other Information Pt screened for low BMI. Pt already being followed by RD. Nutrition Intervention Follow-Up By: 11/06/18 Additional Comments F/U: intakes
[2018-11-04] MEDS: DUONEB *Not for PRN Use IH SCH ×3 (07:45→19:48)
[2018-11-04] MEDS: LOPRESSOR PO SCH ×5 (10:11→22:39)
[2018-11-04] MEDS: PEPCID PO SCH ×2 (10:11→22:39)
[2018-11-04] MEDS: HALFPRIN EC PO SCH (10:11)
--- NOTE | 2018-11-04 10:11 | Progress Note ---
Subjective Date of service: 11/04/18 Principal diagnosis: Ac hypercapnic hypoxemic Resp failure; Drug OD; AE-COPD; NINOSKA; Seizures Interval history: rerviewed over all labs and recent VS stable course at this point continuwe to monitor closely no evidence of recurrent seizures or stroke feel anticoag choices are reasonable given clinical situation Objective - Vital Sign Vital Signs - 12hr 11/03/18 11/03/18 11/03/18 22:17 22:21 23:00 Temperature 98.1 F Pulse Rate 85 85 Pulse Rate [ Anterior Bilateral Throughout] Respiratory 18 Rate Respiratory Rate [Anterior Bilateral Throughout] Respiratory 17 Rate [Left Leg] Respiratory 17 Rate [Right Arm ] Blood Pressure 114/68 114/68 O2 Sat by Pulse 90 Oximetry 11/04/18 11/04/18 11/04/18 03:00 04:44 07:47 Temperature 97.5 F L Pulse Rate 84 Pulse Rate [ 94 H Anterior Bilateral Throughout] Respiratory 18 Rate Respiratory 16 Rate [Anterior Bilateral Throughout] Respiratory 17 Rate [Left Leg] Respiratory 17 Rate [Right Arm ] Blood Pressure 96/58 O2 Sat by Pulse 89 94 Oximetry 11/04/18 08:03 Temperature Pulse Rate Pulse Rate [ 101 H Anterior Bilateral Throughout] Respiratory Rate Respiratory 16 Rate [Anterior Bilateral Throughout] Respiratory Rate [Left Leg] Respiratory Rate [Right Arm ] Blood Pressure O2 Sat by Pulse Oximetry - Laboratory Findings CBC and BMP: 11/03/18 04:38 11/03/18 04:38 Abnormal Lab Findings: Abnormal Labs 10/11/18 10/11/18 10/11/18 00:16 00:16 00:16 WBC 20.1 H RBC Hgb Hct MCV 98 H MCHC RDW 15.4 H Plt Count Lymph % (Auto) Hughes % (Auto) Hughes # Seg Neutrophils % Seg Neuts % (Manual) Lymphocytes % (Manual) 5.0 L Monocytes % (Manual) 25.0 H Seg Neutrophils # Seg Neutrophils # Man 9.2 H Lymphocytes # (Manual) 1.0 L Monocytes # (Manual) 5.0 H APTT Heparin Anti-Xa Level POC ABG pH POC ABG pCO2 POC ABG pO2 Sodium Potassium 5.8 H Chloride Carbon Dioxide 17 L BUN Creatinine 2.2 H Glucose 348 H POC Glucose Lactic Acid 13.70 H* Calcium 7.7 L Phosphorus Total Bilirubin 1.50 H AST 179 H ALT 110 H Total Creatine Kinase 324 H CK-MB (CK-2) Troponin T 0.257 H* Total Protein 5.9 L Albumin 2.9 L HDL Cholesterol 19 L Salicylates Acetaminophen Crossmatch 10/11/18 10/11/18 10/11/18 00:16 00:16 01:21 WBC RBC Hgb Hct MCV MCHC RDW Plt Count Lymph % (Auto) Hughes % (Auto) Hughes # Seg Neutrophils % Seg Neuts % (Manual) Lymphocytes % (Manual) Monocytes % (Manual) Seg Neutrophils # Seg Neutrophils # Man Lymphocytes # (Manual) Monocytes # (Manual) APTT Heparin Anti-Xa Level POC ABG pH 7.110 L POC ABG pCO2 50.3 H POC ABG pO2 65 L Sodium Potassium Chloride Carbon Dioxide BUN Creatinine Glucose POC Glucose Lactic Acid Calcium Phosphorus Total Bilirubin AST ALT Total Creatine Kinase CK-MB (CK-2) Troponin T Total Protein Albumin HDL Cholesterol Salicylates < 0.3 L Acetaminophen < 5.0 L Crossmatch 10/11/18 10/11/18 10/11/18 01:22 03:27 04:14 WBC RBC Hgb Hct MCV MCHC RDW Plt Count Lymph % (Auto) Hughes % (Auto) Hughes # Seg Neutrophils % Seg Neuts % (Manual) Lymphocytes % (Manual) Monocytes % (Manual) Seg Neutrophils # Seg Neutrophils # Man Lymphocytes # (Manual) Monocytes # (Manual) APTT Heparin Anti-Xa Level POC ABG pH POC ABG pCO2 POC ABG pO2 Sodium Potassium Chloride Carbon Dioxide BUN Creatinine Glucose POC Glucose Lactic Acid 8.50 H* 4.10 H* Calcium Phosphorus 4.90 H Total Bilirubin AST ALT Total Creatine Kinase CK-MB (CK-2) Troponin T Total Protein Albumin HDL Cholesterol Salicylates Acetaminophen Crossmatch 10/11/18 10/11/18 10/11/18 04:14 04:14 04:14 WBC RBC Hgb Hct MCV MCHC RDW Plt Count Lymph % (Auto) Hughes % (Auto) Hughes # Seg Neutrophils % Seg Neuts % (Manual) Lymphocytes % (Manual) Monocytes % (Manual) Seg Neutrophils # Seg Neutrophils # Man Lymphocytes # (Manual) Monocytes # (Manual) APTT Heparin Anti-Xa Level POC ABG pH POC ABG pCO2 POC ABG pO2 Sodium Potassium 5.6 H Chloride Carbon Dioxide 19 L BUN Creatinine 1.6 H Glucose 329 H POC Glucose 328 H Lactic Acid Calcium 7.3 L Phosphorus Total Bilirubin AST ALT Total Creatine Kinase CK-MB (CK-2) Troponin T 1.130 H* D Total Protein Albumin HDL Cholesterol Salicylates Acetaminophen Crossmatch 10/11/18 10/11/18 10/11/18 05:10 05:32 05:58 WBC RBC Hgb Hct MCV MCHC RDW Plt Count Lymph % (Auto) Hughes % (Auto) Hughes # Seg Neutrophils % Seg Neuts % (Manual) Lymphocytes % (Manual) Monocytes % (Manual) Seg Neutrophils # Seg Neutrophils # Man Lymphocytes # (Manual) Monocytes # (Manual) APTT Heparin Anti-Xa Level POC ABG pH 7.259 L POC ABG pCO2 45.6 H POC ABG pO2 Sodium Potassium Chloride 108.6 H Carbon Dioxide 20 L BUN Creatinine 1.8 H Glucose 269 H POC Glucose 273 H Lactic Acid Calcium 7.0 L Phosphorus Total Bilirubin AST ALT Total Creatine Kinase CK-MB (CK-2) Troponin T Total Protein Albumin HDL Cholesterol Salicylates Acetaminophen Crossmatch 10/11/18 10/11/18 10/11/18 05:58 06:39 07:00 WBC RBC Hgb Hct MCV MCHC RDW Plt Count Lymph % (Auto) Hughes % (Auto) Hughes # Seg Neutrophils % Seg Neuts % (Manual) Lymphocytes % (Manual) Monocytes % (Manual) Seg Neutrophils # Seg Neutrophils # Man Lymphocytes # (Manual) Monocytes # (Manual) APTT Heparin Anti-Xa Level POC ABG pH POC ABG pCO2 POC ABG pO2 Sodium Potassium Chloride Carbon Dioxide BUN Creatinine Glucose POC Glucose 247 H Lactic Acid 3.20 H* 3.30 H* Calcium Phosphorus Total Bilirubin AST ALT Total Creatine Kinase CK-MB (CK-2) Troponin T Total Protein Albumin HDL Cholesterol Salicylates Acetaminophen Crossmatch 10/11/18 10/11/18 10/11/18 07:00 07:30 07:36 WBC RBC Hgb Hct MCV MCHC RDW Plt Count Lymph % (Auto) Hughes % (Auto) Hughes # Seg Neutrophils % Seg Neuts % (Manual) Lymphocytes % (Manual) Monocytes % (Manual) Seg Neutrophils # Seg Neutrophils # Man Lymphocytes # (Manual) Monocytes # (Manual) APTT Heparin Anti-Xa Level POC ABG pH POC ABG pCO2 POC ABG pO2 Sodium 146 H Potassium Chloride 112.1 H Carbon Dioxide 21 L BUN Creatinine 1.6 H Glucose 218 H POC Glucose Lactic Acid 3.20 H* Calcium 7.0 L Phosphorus Total Bilirubin AST ALT Total Creatine Kinase CK-MB (CK-2) Troponin T 1.020 H* Total Protein Albumin HDL Cholesterol Salicylates Acetaminophen Crossmatch 10/11/18 10/11/18 10/11/18 07:43 08:29 08:29 WBC RBC Hgb 16.2 H Hct 49.9 H D MCV MCHC RDW Plt Count Lymph % (Auto) Hughes % (Auto) Hughes # Seg Neutrophils % Seg Neuts % (Manual) Lymphocytes % (Manual) Monocytes % (Manual) Seg Neutrophils # Seg Neutrophils # Man Lymphocytes # (Manual) Monocytes # (Manual) APTT Heparin Anti-Xa Level POC ABG pH POC ABG pCO2 POC ABG pO2 Sodium Potassium Chloride Carbon Dioxide BUN Creatinine Glucose POC Glucose 174 H Lactic Acid 3.90 H* Calcium Phosphorus Total Bilirubin AST ALT Total Creatine Kinase CK-MB (CK-2) Troponin T Total Protein Albumin HDL Cholesterol Salicylates Acetaminophen Crossmatch 10/11/18 10/11/18 10/11/18 08:29 08:42 11:05 WBC RBC Hgb Hct MCV MCHC RDW Plt Count Lymph % (Auto) Hughes % (Auto) Hughes # Seg Neutrophils % Seg Neuts % (Manual) Lymphocytes % (Manual) Monocytes % (Manual) Seg Neutrophils # Seg Neutrophils # Man Lymphocytes # (Manual) Monocytes # (Manual) APTT 24.1 L Heparin Anti-Xa Level POC ABG pH POC ABG pCO2 POC ABG pO2 Sodium 147 H Potassium Chloride 113.3 H Carbon Dioxide 21 L BUN Creatinine 1.7 H Glucose 119 H POC Glucose 164 H Lactic Acid Calcium 7.7 L Phosphorus Total Bilirubin AST ALT Total Creatine Kinase CK-MB (CK-2) Troponin T Total Protein Albumin HDL Cholesterol Salicylates Acetaminophen Crossmatch 10/11/18 10/11/18 10/11/18 11:05 11:06 12:30 WBC RBC Hgb Hct MCV MCHC RDW Plt Count Lymph % (Auto) Hughes % (Auto) Hughes # Seg Neutrophils % Seg Neuts % (Manual) Lymphocytes % (Manual) Monocytes % (Manual) Seg Neutrophils # Seg Neutrophils # Man Lymphocytes # (Manual) Monocytes # (Manual) APTT Heparin Anti-Xa Level POC ABG pH POC ABG pCO2 POC ABG pO2 Sodium 148 H Potassium Chloride 113.4 H Carbon Dioxide 21 L BUN Creatinine 1.6 H Glucose 119 H POC Glucose 116 H Lactic Acid 3.20 H* Calcium 7.5 L Phosphorus Total Bilirubin AST ALT Total Creatine Kinase CK-MB (CK-2) Troponin T Total Protein Albumin HDL Cholesterol Salicylates Acetaminophen Crossmatch 10/11/18 10/11/18 10/11/18 12:30 13:16 13:25 WBC RBC Hgb Hct MCV MCHC RDW Plt Count Lymph % (Auto) Hughes % (Auto) Hughes # Seg Neutrophils % Seg Neuts % (Manual) Lymphocytes % (Manual) Monocytes % (Manual) Seg Neutrophils # Seg Neutrophils # Man Lymphocytes # (Manual) Monocytes # (Manual) APTT Heparin Anti-Xa Level POC ABG pH 7.247 L POC ABG pCO2 48.4 H POC ABG pO2 Sodium Potassium Chloride Carbon Dioxide BUN Creatinine Glucose POC Glucose 112 H Lactic Acid 2.70 H* Calcium Phosphorus Total Bilirubin AST ALT Total Creatine Kinase CK-MB (CK-2) Troponin T Total Protein Albumin HDL Cholesterol Salicylates Acetaminophen Crossmatch 10/11/18 10/11/18 10/11/18 14:41 15:27 16:13 WBC RBC Hgb Hct MCV MCHC RDW Plt Count Lymph % (Auto) Hughes % (Auto) Hughes # Seg Neutrophils % Seg Neuts % (Manual) Lymphocytes % (Manual) Monocytes % (Manual) Seg Neutrophils # Seg Neutrophils # Man Lymphocytes # (Manual) Monocytes # (Manual) APTT Heparin Anti-Xa Level POC ABG pH POC ABG pCO2 POC ABG pO2 Sodium Potassium Chloride Carbon Dioxide BUN Creatinine Glucose POC Glucose 127 H 141 H 134 H Lactic Acid Calcium Phosphorus Total Bilirubin AST ALT Total Creatine Kinase CK-MB (CK-2) Troponin T Total Protein Albumin HDL Cholesterol Salicylates Acetaminophen Crossmatch 10/11/18 10/11/18 10/11/18 17:18 18:23 19:38 WBC RBC Hgb Hct MCV MCHC RDW Plt Count Lymph % (Auto) Hughes % (Auto) Hughes # Seg Neutrophils % Seg Neuts % (Manual) Lymphocytes % (Manual) Monocytes % (Manual) Seg Neutrophils # Seg Neutrophils # Man Lymphocytes # (Manual) Monocytes # (Manual) APTT Heparin Anti-Xa Level POC ABG pH POC ABG pCO2 POC ABG pO2 Sodium 148 H Potassium Chloride 112.7 H Carbon Dioxide BUN 23 H Creatinine Glucose 143 H POC Glucose 132 H 129 H Lactic Acid Calcium 7.9 L Phosphorus Total Bilirubin AST ALT Total Creatine Kinase CK-MB (CK-2) Troponin T Total Protein Albumin HDL Cholesterol Salicylates Acetaminophen Crossmatch 10/11/18 10/11/18 10/11/18 20:19 20:36 21:01 WBC RBC Hgb Hct MCV MCHC RDW Plt Count Lymph % (Auto) Hughes % (Auto) Hughes # Seg Neutrophils % Seg Neuts % (Manual) Lymphocytes % (Manual) Monocytes % (Manual) Seg Neutrophils # Seg Neutrophils # Man Lymphocytes # (Manual) Monocytes # (Manual) APTT Heparin Anti-Xa Level POC ABG pH 7.281 L POC ABG pCO2 POC ABG pO2 Sodium Potassium Chloride Carbon Dioxide BUN Creatinine Glucose POC Glucose 129 H 151 H Lactic Acid Calcium Phosphorus Total Bilirubin AST ALT Total Creatine Kinase CK-MB (CK-2) Troponin T Total Protein Albumin HDL Cholesterol Salicylates Acetaminophen Crossmatch 10/11/18 10/11/18 10/12/18 22:04 23:15 01:18 WBC RBC Hgb Hct MCV MCHC RDW Plt Count Lymph % (Auto) Hughes % (Auto) Hughes # Seg Neutrophils % Seg Neuts % (Manual) Lymphocytes % (Manual) Monocytes % (Manual) Seg Neutrophils # Seg Neutrophils # Man Lymphocytes # (Manual) Monocytes # (Manual) APTT Heparin Anti-Xa Level POC ABG pH POC ABG pCO2 POC ABG pO2 Sodium Potassium Chloride Carbon Dioxide BUN Creatinine Glucose POC Glucose 147 H 143 H 158 H Lactic Acid Calcium Phosphorus Total Bilirubin AST ALT Total Creatine Kinase CK-MB (CK-2) Troponin T Total Protein Albumin HDL Cholesterol Salicylates Acetaminophen Crossmatch 10/12/18 10/12/18 10/12/18 02:13 03:18 04:04 WBC RBC Hgb Hct MCV MCHC RDW Plt Count Lymph % (Auto) Hughes % (Auto) Hughes # Seg Neutrophils % Seg Neuts % (Manual) Lymphocytes % (Manual) Monocytes % (Manual) Seg Neutrophils # Seg Neutrophils # Man Lymphocytes # (Manual) Monocytes # (Manual) APTT Heparin Anti-Xa Level POC ABG pH POC ABG pCO2 POC ABG pO2 Sodium 147 H Potassium Chloride 111.1 H Carbon Dioxide BUN 30 H Creatinine 2.0 H Glucose 154 H POC Glucose 148 H 142 H Lactic Acid Calcium 8.1 L Phosphorus Total Bilirubin AST 269 H ALT 204 H Total Creatine Kinase 3647 H CK-MB (CK-2) 48.3 H Troponin T 2.230 H* D Total Protein 5.8 L Albumin 2.6 L HDL Cholesterol Salicylates Acetaminophen Crossmatch 10/12/18 10/12/18 10/12/18 04:04 04:08 04:19 WBC 24.4 H RBC Hgb Hct MCV MCHC RDW Plt Count Lymph % (Auto) Hughes % (Auto) Hughes # Seg Neutrophils % Seg Neuts % (Manual) 32.0 L Lymphocytes % (Manual) Monocytes % (Manual) 8.0 H Seg Neutrophils # Seg Neutrophils # Man 7.8 H Lymphocytes # (Manual) Monocytes # (Manual) 2.0 H APTT Heparin Anti-Xa Level POC ABG pH 7.317 L POC ABG pCO2 49.3 H POC ABG pO2 Sodium Potassium Chloride Carbon Dioxide BUN Creatinine Glucose POC Glucose 143 H Lactic Acid Calcium Phosphorus Total Bilirubin AST ALT Total Creatine Kinase CK-MB (CK-2) Troponin T Total Protein Albumin HDL Cholesterol Salicylates Acetaminophen Crossmatch 10/12/18 10/12/18 10/12/18 05:29 06:52 08:09 WBC RBC Hgb Hct MCV MCHC RDW Plt Count Lymph % (Auto) Hughes % (Auto) Hughes # Seg Neutrophils % Seg Neuts % (Manual) Lymphocytes % (Manual) Monocytes % (Manual) Seg Neutrophils # Seg Neutrophils # Man Lymphocytes # (Manual) Monocytes # (Manual) APTT Heparin Anti-Xa Level POC ABG pH 7.322 L POC ABG pCO2 46.5 H POC ABG pO2 Sodium Potassium Chloride Carbon Dioxide BUN Creatinine Glucose POC Glucose 196 H 226 H Lactic Acid Calcium Phosphorus Total Bilirubin AST ALT Total Creatine Kinase CK-MB (CK-2) Troponin T Total Protein Albumin HDL Cholesterol Salicylates Acetaminophen Crossmatch 10/12/18 10/12/18 10/12/18 08:38 10:03 15:50 WBC RBC Hgb Hct MCV MCHC RDW Plt Count Lymph % (Auto) Hughes % (Auto) Hughes # Seg Neutrophils % Seg Neuts % (Manual) Lymphocytes % (Manual) Monocytes % (Manual) Seg Neutrophils # Seg Neutrophils # Man Lymphocytes # (Manual) Monocytes # (Manual) APTT Heparin Anti-Xa Level POC ABG pH POC ABG pCO2 POC ABG pO2 Sodium Potassium Chloride Carbon Dioxide BUN Creatinine Glucose POC Glucose 138 H 148 H 221 H Lactic Acid Calcium Phosphorus Total Bilirubin AST ALT Total Creatine Kinase CK-MB (CK-2) Troponin T Total Protein Albumin HDL Cholesterol Salicylates Acetaminophen Crossmatch 10/12/18 10/12/18 10/12/18 18:39 20:56 21:34 WBC RBC Hgb Hct MCV MCHC RDW Plt Count Lymph % (Auto) Hughes % (Auto) Hughes # Seg Neutrophils % Seg Neuts % (Manual) Lymphocytes % (Manual) Monocytes % (Manual) Seg Neutrophils # Seg Neutrophils # Man Lymphocytes # (Manual) Monocytes # (Manual) APTT Heparin Anti-Xa Level POC ABG pH 7.336 L POC ABG pCO2 46.0 H POC ABG pO2 Sodium Potassium Chloride Carbon Dioxide BUN Creatinine Glucose POC Glucose 255 H 260 H Lactic Acid Calcium Phosphorus Total Bilirubin AST ALT Total Creatine Kinase CK-MB (CK-2) Troponin T Total Protein Albumin HDL Cholesterol Salicylates Acetaminophen Crossmatch 10/13/18 10/13/18 10/13/18 02:29 05:09 05:40 WBC 17.0 H RBC Hgb Hct MCV MCHC RDW Plt Count Lymph % (Auto) Hughes % (Auto) 9.2 H Hughes # 1.6 H Seg Neutrophils % 76.2 H Seg Neuts % (Manual) Lymphocytes % (Manual) Monocytes % (Manual) Seg Neutrophils # 12.9 H Seg Neutrophils # Man Lymphocytes # (Manual) Monocytes # (Manual) APTT Heparin Anti-Xa Level POC ABG pH POC ABG pCO2 POC ABG pO2 Sodium Potassium Chloride Carbon Dioxide BUN Creatinine Glucose POC Glucose 216 H 249 H Lactic Acid Calcium Phosphorus Total Bilirubin AST ALT Total Creatine Kinase CK-MB (CK-2) Troponin T Total Protein Albumin HDL Cholesterol Salicylates Acetaminophen Crossmatch 10/13/18 10/13/18 10/13/18 05:40 05:40 09:46 WBC RBC Hgb Hct MCV MCHC RDW Plt Count Lymph % (Auto) Hughes % (Auto) Hughes # Seg Neutrophils % Seg Neuts % (Manual) Lymphocytes % (Manual) Monocytes % (Manual) Seg Neutrophils # Seg Neutrophils # Man Lymphocytes # (Manual) Monocytes # (Manual) APTT Heparin Anti-Xa Level POC ABG pH POC ABG pCO2 POC ABG pO2 Sodium 146 H Potassium Chloride 109.8 H Carbon Dioxide BUN 35 H Creatinine Glucose 245 H POC Glucose 235 H Lactic Acid Calcium 7.9 L Phosphorus Total Bilirubin AST ALT Total Creatine Kinase CK-MB (CK-2) Troponin T 0.952 H* D Total Protein Albumin HDL Cholesterol Salicylates Acetaminophen Crossmatch 10/13/18 10/13/18 10/13/18 13:58 16:15 17:30 WBC RBC Hgb Hct MCV MCHC RDW Plt Count Lymph % (Auto) Hughes % (Auto) Hughes # Seg Neutrophils % Seg Neuts % (Manual) Lymphocytes % (Manual) Monocytes % (Manual) Seg Neutrophils # Seg Neutrophils # Man Lymphocytes # (Manual) Monocytes # (Manual) APTT Heparin Anti-Xa Level POC ABG pH POC ABG pCO2 51.2 H POC ABG pO2 Sodium Potassium Chloride Carbon Dioxide BUN Creatinine Glucose POC Glucose 139 H Lactic Acid Calcium Phosphorus Total Bilirubin AST ALT Total Creatine Kinase CK-MB (CK-2) Troponin T 0.816 H* Total Protein Albumin HDL Cholesterol Salicylates Acetaminophen Crossmatch 10/13/18 10/14/18 10/14/18 21:25 01:49 04:52 WBC RBC Hgb Hct MCV MCHC RDW Plt Count Lymph % (Auto) Hughes % (Auto) Hughes # Seg Neutrophils % Seg Neuts % (Manual) Lymphocytes % (Manual) Monocytes % (Manual) Seg Neutrophils # Seg Neutrophils # Man Lymphocytes # (Manual) Monocytes # (Manual) APTT Heparin Anti-Xa Level POC ABG pH POC ABG pCO2 56.0 H POC ABG pO2 Sodium Potassium Chloride Carbon Dioxide BUN Creatinine Glucose POC Glucose 205 H 166 H Lactic Acid Calcium Phosphorus Total Bilirubin AST ALT Total Creatine Kinase CK-MB (CK-2) Troponin T Total Protein Albumin HDL Cholesterol Salicylates Acetaminophen Crossmatch 10/14/18 10/14/18 10/14/18 05:32 09:45 09:45 WBC RBC Hgb 11.4 L Hct 34.5 L MCV MCHC RDW Plt Count 139 L Lymph % (Auto) Hughes % (Auto) Hughes # Seg Neutrophils % Seg Neuts % (Manual) Lymphocytes % (Manual) Monocytes % (Manual) Seg Neutrophils # Seg Neutrophils # Man Lymphocytes # (Manual) Monocytes # (Manual) APTT Heparin Anti-Xa Level POC ABG pH POC ABG pCO2 POC ABG pO2 Sodium 148 H Potassium Chloride 107.3 H Carbon Dioxide 34 H D BUN Creatinine 0.7 L D Glucose 191 H POC Glucose 164 H Lactic Acid Calcium 7.3 L Phosphorus Total Bilirubin AST 110 H ALT 91 H Total Creatine Kinase CK-MB (CK-2) Troponin T Total Protein 4.9 L Albumin 2.0 L HDL Cholesterol Salicylates Acetaminophen Crossmatch 10/14/18 10/14/18 10/14/18 10:54 12:20 18:30 WBC RBC Hgb Hct MCV MCHC RDW Plt Count Lymph % (Auto) Hughes % (Auto) Hughes # Seg Neutrophils % Seg Neuts % (Manual) Lymphocytes % (Manual) Monocytes % (Manual) Seg Neutrophils # Seg Neutrophils # Man Lymphocytes # (Manual) Monocytes # (Manual) APTT Heparin Anti-Xa Level POC ABG pH POC ABG pCO2 POC ABG pO2 Sodium Potassium Chloride Carbon Dioxide BUN Creatinine Glucose POC Glucose 173 H 158 H 108 H Lactic Acid Calcium Phosphorus Total Bilirubin AST ALT Total Creatine Kinase CK-MB (CK-2) Troponin T Total Protein Albumin HDL Cholesterol Salicylates Acetaminophen Crossmatch 10/14/18 10/15/18 10/15/18 21:54 02:12 04:19 WBC RBC Hgb Hct MCV MCHC RDW Plt Count Lymph % (Auto) Hughes % (Auto) Hughes # Seg Neutrophils % Seg Neuts % (Manual) Lymphocytes % (Manual) Monocytes % (Manual) Seg Neutrophils # Seg Neutrophils # Man Lymphocytes # (Manual) Monocytes # (Manual) APTT Heparin Anti-Xa Level POC ABG pH 7.491 H POC ABG pCO2 45.1 H POC ABG pO2 Sodium Potassium Chloride Carbon Dioxide BUN Creatinine Glucose POC Glucose 110 H 164 H Lactic Acid Calcium Phosphorus Total Bilirubin AST ALT Total Creatine Kinase CK-MB (CK-2) Troponin T Total Protein Albumin HDL Cholesterol Salicylates Acetaminophen Crossmatch 10/15/18 10/15/18 10/15/18 04:55 05:43 06:20 WBC RBC Hgb 11.7 L Hct 34.7 L MCV MCHC RDW Plt Count Lymph % (Auto) Hughes % (Auto) Hughes # Seg Neutrophils % Seg Neuts % (Manual) Lymphocytes % (Manual) Monocytes % (Manual) Seg Neutrophils # Seg Neutrophils # Man Lymphocytes # (Manual) Monocytes # (Manual) APTT Heparin Anti-Xa Level POC ABG pH POC ABG pCO2 47.3 H POC ABG pO2 78 L Sodium Potassium Chloride Carbon Dioxide BUN Creatinine Glucose POC Glucose 250 H Lactic Acid Calcium Phosphorus Total Bilirubin AST ALT Total Creatine Kinase CK-MB (CK-2) Troponin T Total Protein Albumin HDL Cholesterol Salicylates Acetaminophen Crossmatch 10/15/18 10/15/18 10/15/18 12:00 12:00 12:11 WBC RBC Hgb 11.5 L Hct 34.0 L MCV MCHC RDW Plt Count Lymph % (Auto) Hughes % (Auto) Hughes # Seg Neutrophils % Seg Neuts % (Manual) Lymphocytes % (Manual) Monocytes % (Manual) Seg Neutrophils # Seg Neutrophils # Man Lymphocytes # (Manual) Monocytes # (Manual) APTT Heparin Anti-Xa Level POC ABG pH POC ABG pCO2 POC ABG pO2 Sodium 147 H Potassium Chloride 108.5 H Carbon Dioxide BUN Creatinine 0.7 L Glucose 209 H POC Glucose 197 H Lactic Acid Calcium 7.3 L Phosphorus Total Bilirubin AST ALT Total Creatine Kinase CK-MB (CK-2) Troponin T Total Protein Albumin HDL Cholesterol Salicylates Acetaminophen Crossmatch 10/15/18 10/15/18 10/15/18 15:48 18:34 21:29 WBC RBC Hgb Hct MCV MCHC RDW Plt Count Lymph % (Auto) Hughes % (Auto) Hughes # Seg Neutrophils % Seg Neuts % (Manual) Lymphocytes % (Manual) Monocytes % (Manual) Seg Neutrophils # Seg Neutrophils # Man Lymphocytes # (Manual) Monocytes # (Manual) APTT Heparin Anti-Xa Level POC ABG pH POC ABG pCO2 POC ABG pO2 Sodium Potassium Chloride Carbon Dioxide BUN Creatinine Glucose POC Glucose 220 H 249 H 209 H Lactic Acid Calcium Phosphorus Total Bilirubin AST ALT Total Creatine Kinase CK-MB (CK-2) Troponin T Total Protein Albumin HDL Cholesterol Salicylates Acetaminophen Crossmatch 10/16/18 10/16/18 10/16/18 02:16 03:50 05:57 WBC RBC Hgb Hct MCV MCHC RDW Plt Count Lymph % (Auto) Hughes % (Auto) Hughes # Seg Neutrophils % Seg Neuts % (Manual) Lymphocytes % (Manual) Monocytes % (Manual) Seg Neutrophils # Seg Neutrophils # Man Lymphocytes # (Manual) Monocytes # (Manual) APTT Heparin Anti-Xa Level POC ABG pH POC ABG pCO2 55.8 H POC ABG pO2 Sodium Potassium Chloride Carbon Dioxide BUN Creatinine Glucose POC Glucose 110 H 209 H Lactic Acid Calcium Phosphorus Total Bilirubin AST ALT Total Creatine Kinase CK-MB (CK-2) Troponin T Total Protein Albumin HDL Cholesterol Salicylates Acetaminophen Crossmatch 10/16/18 10/16/18 10/16/18 10:51 12:51 15:01 WBC RBC Hgb Hct MCV MCHC RDW Plt Count Lymph % (Auto) Hughes % (Auto) Hughes # Seg Neutrophils % Seg Neuts % (Manual) Lymphocytes % (Manual) Monocytes % (Manual) Seg Neutrophils # Seg Neutrophils # Man Lymphocytes # (Manual) Monocytes # (Manual) APTT Heparin Anti-Xa Level POC ABG pH POC ABG pCO2 48.9 H POC ABG pO2 Sodium Potassium Chloride Carbon Dioxide BUN Creatinine Glucose POC Glucose 198 H 196 H Lactic Acid Calcium Phosphorus Total Bilirubin AST ALT Total Creatine Kinase CK-MB (CK-2) Troponin T Total Protein Albumin HDL Cholesterol Salicylates Acetaminophen Crossmatch 10/16/18 10/16/18 10/17/18 17:34 21:59 02:17 WBC RBC Hgb Hct MCV MCHC RDW Plt Count Lymph % (Auto) Hughes % (Auto) Hughes # Seg Neutrophils % Seg Neuts % (Manual) Lymphocytes % (Manual) Monocytes % (Manual) Seg Neutrophils # Seg Neutrophils # Man Lymphocytes # (Manual) Monocytes # (Manual) APTT Heparin Anti-Xa Level POC ABG pH POC ABG pCO2 POC ABG pO2 Sodium Potassium Chloride Carbon Dioxide BUN Creatinine Glucose POC Glucose 179 H 139 H 135 H Lactic Acid Calcium Phosphorus Total Bilirubin AST ALT Total Creatine Kinase CK-MB (CK-2) Troponin T Total Protein Albumin HDL Cholesterol Salicylates Acetaminophen Crossmatch 10/17/18 10/17/18 10/17/18 05:40 05:47 10:18 WBC RBC Hgb 11.3 L Hct 33.2 L MCV MCHC RDW Plt Count Lymph % (Auto) Hughes % (Auto) Hughes # Seg Neutrophils % Seg Neuts % (Manual) Lymphocytes % (Manual) Monocytes % (Manual) Seg Neutrophils # Seg Neutrophils # Man Lymphocytes # (Manual) Monocytes # (Manual) APTT Heparin Anti-Xa Level POC ABG pH POC ABG pCO2 POC ABG pO2 Sodium Potassium Chloride Carbon Dioxide BUN Creatinine Glucose POC Glucose 125 H 139 H Lactic Acid Calcium Phosphorus Total Bilirubin AST ALT Total Creatine Kinase CK-MB (CK-2) Troponin T Total Protein Albumin HDL Cholesterol Salicylates Acetaminophen Crossmatch 10/17/18 10/18/18 10/18/18 23:11 08:49 11:31 WBC RBC Hgb Hct MCV MCHC RDW Plt Count Lymph % (Auto) Hughes % (Auto) Hughes # Seg Neutrophils % Seg Neuts % (Manual) Lymphocytes % (Manual) Monocytes % (Manual) Seg Neutrophils # Seg Neutrophils # Man Lymphocytes # (Manual) Monocytes # (Manual) APTT Heparin Anti-Xa Level POC ABG pH POC ABG pCO2 POC ABG pO2 Sodium Potassium Chloride Carbon Dioxide BUN Creatinine Glucose POC Glucose 165 H 125 H 182 H Lactic Acid Calcium Phosphorus Total Bilirubin AST ALT Total Creatine Kinase CK-MB (CK-2) Troponin T Total Protein Albumin HDL Cholesterol Salicylates Acetaminophen Crossmatch 10/18/18 10/18/18 10/19/18 16:12 21:02 00:28 WBC RBC Hgb 11.4 L Hct 33.6 L MCV MCHC RDW Plt Count Lymph % (Auto) Hughes % (Auto) 14.0 H Hughes # 1.2 H Seg Neutrophils % Seg Neuts % (Manual) Lymphocytes % (Manual) Monocytes % (Manual) Seg Neutrophils # Seg Neutrophils # Man Lymphocytes # (Manual) Monocytes # (Manual) APTT Heparin Anti-Xa Level POC ABG pH POC ABG pCO2 POC ABG pO2 Sodium Potassium Chloride Carbon Dioxide BUN Creatinine Glucose POC Glucose 168 H 324 H Lactic Acid Calcium Phosphorus Total Bilirubin AST ALT Total Creatine Kinase CK-MB (CK-2) Troponin T Total Protein Albumin HDL Cholesterol Salicylates Acetaminophen Crossmatch 10/19/18 10/19/18 10/19/18 04:57 04:57 07:32 WBC RBC Hgb 11.7 L Hct 34.0 L MCV MCHC RDW Plt Count Lymph % (Auto) Hughes % (Auto) Hughes # Seg Neutrophils % Seg Neuts % (Manual) Lymphocytes % (Manual) Monocytes % (Manual) Seg Neutrophils # Seg Neutrophils # Man Lymphocytes # (Manual) Monocytes # (Manual) APTT Heparin Anti-Xa Level POC ABG pH POC ABG pCO2 POC ABG pO2 Sodium Potassium 3.5 L Chloride 108.6 H Carbon Dioxide BUN Creatinine 0.6 L Glucose POC Glucose 159 H Lactic Acid Calcium 7.9 L Phosphorus Total Bilirubin AST ALT Total Creatine Kinase CK-MB (CK-2) Troponin T Total Protein Albumin HDL Cholesterol Salicylates Acetaminophen Crossmatch 10/19/18 10/19/18 10/20/18 16:25 20:59 12:04 WBC RBC Hgb Hct MCV MCHC RDW Plt Count Lymph % (Auto) Hughes % (Auto) Hughes # Seg Neutrophils % Seg Neuts % (Manual) Lymphocytes % (Manual) Monocytes % (Manual) Seg Neutrophils # Seg Neutrophils # Man Lymphocytes # (Manual) Monocytes # (Manual) APTT Heparin Anti-Xa Level POC ABG pH POC ABG pCO2 POC ABG pO2 Sodium Potassium Chloride Carbon Dioxide BUN Creatinine Glucose POC Glucose 134 H 110 H 338 H Lactic Acid Calcium Phosphorus Total Bilirubin AST ALT Total Creatine Kinase CK-MB (CK-2) Troponin T Total Protein Albumin HDL Cholesterol Salicylates Acetaminophen Crossmatch 10/20/18 10/20/18 10/21/18 17:55 22:07 04:59 WBC RBC Hgb 11.6 L Hct 33.9 L MCV MCHC RDW Plt Count Lymph % (Auto) Hughes % (Auto) 9.7 H Hughes # 0.9 H Seg Neutrophils % 70.7 H Seg Neuts % (Manual) Lymphocytes % (Manual) Monocytes % (Manual) Seg Neutrophils # Seg Neutrophils # Man Lymphocytes # (Manual) Monocytes # (Manual) APTT Heparin Anti-Xa Level POC ABG pH POC ABG pCO2 POC ABG pO2 Sodium Potassium Chloride Carbon Dioxide BUN Creatinine Glucose POC Glucose 146 H 164 H Lactic Acid Calcium Phosphorus Total Bilirubin AST ALT Total Creatine Kinase CK-MB (CK-2) Troponin T Total Protein Albumin HDL Cholesterol Salicylates Acetaminophen Crossmatch 10/21/18 10/21/18 10/21/18 04:59 07:52 11:39 WBC RBC Hgb Hct MCV MCHC RDW Plt Count Lymph % (Auto) Hughes % (Auto) Hughes # Seg Neutrophils % Seg Neuts % (Manual) Lymphocytes % (Manual) Monocytes % (Manual) Seg Neutrophils # Seg Neutrophils # Man Lymphocytes # (Manual) Monocytes # (Manual) APTT Heparin Anti-Xa Level POC ABG pH POC ABG pCO2 POC ABG pO2 Sodium Potassium 3.5 L Chloride 107.1 H Carbon Dioxide BUN Creatinine 0.5 L Glucose 158 H POC Glucose 142 H 194 H Lactic Acid Calcium 7.5 L Phosphorus Total Bilirubin AST ALT Total Creatine Kinase CK-MB (CK-2) Troponin T Total Protein 5.6 L Albumin 2.0 L HDL Cholesterol Salicylates Acetaminophen Crossmatch 10/21/18 10/21/18 10/22/18 17:05 20:37 05:38 WBC RBC 3.48 L Hgb 10.8 L Hct 31.7 L MCV MCHC RDW Plt Count 458 H Lymph % (Auto) Hughes % (Auto) 10.5 H Hughes # Seg Neutrophils % Seg Neuts % (Manual) Lymphocytes % (Manual) Monocytes % (Manual) Seg Neutrophils # Seg Neutrophils # Man Lymphocytes # (Manual) Monocytes # (Manual) APTT Heparin Anti-Xa Level POC ABG pH POC ABG pCO2 POC ABG pO2 Sodium Potassium Chloride Carbon Dioxide BUN Creatinine Glucose POC Glucose 167 H 182 H Lactic Acid Calcium Phosphorus Total Bilirubin AST ALT Total Creatine Kinase CK-MB (CK-2) Troponin T Total Protein Albumin HDL Cholesterol Salicylates Acetaminophen Crossmatch 10/22/18 10/22/18 10/22/18 05:38 07:48 12:08 WBC RBC Hgb Hct MCV MCHC RDW Plt Count Lymph % (Auto) Hughes % (Auto) Hughes # Seg Neutrophils % Seg Neuts % (Manual) Lymphocytes % (Manual) Monocytes % (Manual) Seg Neutrophils # Seg Neutrophils # Man Lymphocytes # (Manual) Monocytes # (Manual) APTT Heparin Anti-Xa Level POC ABG pH POC ABG pCO2 POC ABG pO2 Sodium Potassium Chloride Carbon Dioxide BUN Creatinine 0.5 L Glucose 146 H POC Glucose 130 H 167 H Lactic Acid Calcium 7.8 L Phosphorus Total Bilirubin AST 41 H ALT Total Creatine Kinase CK-MB (CK-2) Troponin T Total Protein 5.5 L Albumin 2.1 L HDL Cholesterol Salicylates Acetaminophen Crossmatch 10/22/18 10/22/18 10/23/18 16:45 21:42 04:38 WBC RBC Hgb 11.7 L Hct 34.7 L MCV MCHC RDW Plt Count 523 H Lymph % (Auto) Hughes % (Auto) 8.7 H Hughes # Seg Neutrophils % 71.6 H Seg Neuts % (Manual) Lymphocytes % (Manual) Monocytes % (Manual) Seg Neutrophils # Seg Neutrophils # Man Lymphocytes # (Manual) Monocytes # (Manual) APTT Heparin Anti-Xa Level POC ABG pH POC ABG pCO2 POC ABG pO2 Sodium Potassium Chloride Carbon Dioxide BUN Creatinine Glucose POC Glucose 113 H 134 H Lactic Acid Calcium Phosphorus Total Bilirubin AST ALT Total Creatine Kinase CK-MB (CK-2) Troponin T Total Protein Albumin HDL Cholesterol Salicylates Acetaminophen Crossmatch 10/23/18 10/23/18 10/23/18 04:38 07:56 11:15 WBC RBC Hgb Hct MCV MCHC RDW Plt Count Lymph % (Auto) Hughes % (Auto) Hughes # Seg Neutrophils % Seg Neuts % (Manual) Lymphocytes % (Manual) Monocytes % (Manual) Seg Neutrophils # Seg Neutrophils # Man Lymphocytes # (Manual) Monocytes # (Manual) APTT Heparin Anti-Xa Level POC ABG pH POC ABG pCO2 POC ABG pO2 Sodium Potassium Chloride Carbon Dioxide BUN 7 L Creatinine 0.5 L Glucose 150 H POC Glucose 123 H 212 H Lactic Acid Calcium 8.0 L Phosphorus Total Bilirubin AST 55 H ALT Total Creatine Kinase CK-MB (CK-2) Troponin T Total Protein 6.2 L Albumin 2.3 L HDL Cholesterol Salicylates Acetaminophen Crossmatch 10/23/18 10/23/18 10/24/18 16:06 22:01 05:56 WBC 11.8 H RBC 3.64 L Hgb 11.2 L Hct 33.4 L MCV MCHC RDW Plt Count 564 H Lymph % (Auto) 11.3 L Hughes % (Auto) Hughes # Seg Neutrophils % 80.2 H Seg Neuts % (Manual) Lymphocytes % (Manual) Monocytes % (Manual) Seg Neutrophils # 9.4 H Seg Neutrophils # Man Lymphocytes # (Manual) Monocytes # (Manual) APTT Heparin Anti-Xa Level POC ABG pH POC ABG pCO2 POC ABG pO2 Sodium Potassium Chloride Carbon Dioxide BUN Creatinine Glucose POC Glucose 152 H 235 H Lactic Acid Calcium Phosphorus Total Bilirubin AST ALT Total Creatine Kinase CK-MB (CK-2) Troponin T Total Protein Albumin HDL Cholesterol Salicylates Acetaminophen Crossmatch 10/24/18 10/24/18 10/24/18 05:56 07:52 11:58 WBC RBC Hgb Hct MCV MCHC RDW Plt Count Lymph % (Auto) Hughes % (Auto) Hughes # Seg Neutrophils % Seg Neuts % (Manual) Lymphocytes % (Manual) Monocytes % (Manual) Seg Neutrophils # Seg Neutrophils # Man Lymphocytes # (Manual) Monocytes # (Manual) APTT Heparin Anti-Xa Level POC ABG pH POC ABG pCO2 POC ABG pO2 Sodium Potassium Chloride Carbon Dioxide BUN Creatinine 0.5 L Glucose 175 H POC Glucose 156 H 238 H Lactic Acid Calcium 8.0 L Phosphorus Total Bilirubin AST 44 H ALT Total Creatine Kinase CK-MB (CK-2) Troponin T Total Protein 6.2 L Albumin 2.4 L HDL Cholesterol Salicylates Acetaminophen Crossmatch 10/24/18 10/24/18 10/25/18 16:20 22:13 07:53 WBC RBC Hgb Hct MCV MCHC RDW Plt Count Lymph % (Auto) Hughes % (Auto) Hughes # Seg Neutrophils % Seg Neuts % (Manual) Lymphocytes % (Manual) Monocytes % (Manual) Seg Neutrophils # Seg Neutrophils # Man Lymphocytes # (Manual) Monocytes # (Manual) APTT Heparin Anti-Xa Level POC ABG pH POC ABG pCO2 POC ABG pO2 Sodium Potassium Chloride Carbon Dioxide BUN Creatinine Glucose POC Glucose 60 L 261 H 211 H Lactic Acid Calcium Phosphorus Total Bilirubin AST ALT Total Creatine Kinase CK-MB (CK-2) Troponin T Total Protein Albumin HDL Cholesterol Salicylates Acetaminophen Crossmatch 10/25/18 10/25/18 10/25/18 11:03 16:02 22:45 WBC RBC Hgb Hct MCV MCHC RDW Plt Count Lymph % (Auto) Hughes % (Auto) Hughes # Seg Neutrophils % Seg Neuts % (Manual) Lymphocytes % (Manual) Monocytes % (Manual) Seg Neutrophils # Seg Neutrophils # Man Lymphocytes # (Manual) Monocytes # (Manual) APTT Heparin Anti-Xa Level POC ABG pH POC ABG pCO2 POC ABG pO2 Sodium Potassium Chloride Carbon Dioxide BUN Creatinine Glucose POC Glucose 137 H 186 H 140 H Lactic Acid Calcium Phosphorus Total Bilirubin AST ALT Total Creatine Kinase CK-MB (CK-2) Troponin T Total Protein Albumin HDL Cholesterol Salicylates Acetaminophen Crossmatch 10/26/18 10/26/18 10/26/18 08:13 10:08 11:28 WBC RBC Hgb Hct MCV MCHC RDW Plt Count Lymph % (Auto) Hughes % (Auto) Hughes # Seg Neutrophils % Seg Neuts % (Manual) Lymphocytes % (Manual) Monocytes % (Manual) Seg Neutrophils # Seg Neutrophils # Man Lymphocytes # (Manual) Monocytes # (Manual) APTT Heparin Anti-Xa Level POC ABG pH POC ABG pCO2 POC ABG pO2 Sodium Potassium Chloride Carbon Dioxide BUN Creatinine Glucose POC Glucose 144 H 110 H 201 H Lactic Acid Calcium Phosphorus Total Bilirubin AST ALT Total Creatine Kinase CK-MB (CK-2) Troponin T Total Protein Albumin HDL Cholesterol Salicylates Acetaminophen Crossmatch 10/26/18 10/26/18 10/27/18 16:36 22:29 07:34 WBC RBC Hgb Hct MCV MCHC RDW Plt Count Lymph % (Auto) Hughes % (Auto) Hughes # Seg Neutrophils % Seg Neuts % (Manual) Lymphocytes % (Manual) Monocytes % (Manual) Seg Neutrophils # Seg Neutrophils # Man Lymphocytes # (Manual) Monocytes # (Manual) APTT Heparin Anti-Xa Level POC ABG pH POC ABG pCO2 POC ABG pO2 Sodium Potassium Chloride Carbon Dioxide BUN Creatinine Glucose POC Glucose 147 H 302 H 182 H Lactic Acid Calcium Phosphorus Total Bilirubin AST ALT Total Creatine Kinase CK-MB (CK-2) Troponin T Total Protein Albumin HDL Cholesterol Salicylates Acetaminophen Crossmatch 10/27/18 10/27/18 10/27/18 11:57 13:33 14:55 WBC RBC Hgb Hct MCV MCHC RDW Plt Count 550 H Lymph % (Auto) Hughes % (Auto) Hughes # Seg Neutrophils % Seg Neuts % (Manual) Lymphocytes % (Manual) Monocytes % (Manual) Seg Neutrophils # Seg Neutrophils # Man Lymphocytes # (Manual) Monocytes # (Manual) APTT Heparin Anti-Xa Level POC ABG pH POC ABG pCO2 POC ABG pO2 Sodium Potassium Chloride Carbon Dioxide BUN Creatinine Glucose POC Glucose 209 H Lactic Acid Calcium Phosphorus Total Bilirubin AST ALT Total Creatine Kinase CK-MB (CK-2) Troponin T Total Protein Albumin HDL Cholesterol Salicylates Acetaminophen Crossmatch See Detail 10/27/18 10/27/18 10/28/18 17:09 21:45 07:45 WBC RBC Hgb Hct MCV MCHC RDW Plt Count Lymph % (Auto) Hughes % (Auto) Hughes # Seg Neutrophils % Seg Neuts % (Manual) Lymphocytes % (Manual) Monocytes % (Manual) Seg Neutrophils # Seg Neutrophils # Man Lymphocytes # (Manual) Monocytes # (Manual) APTT Heparin Anti-Xa Level POC ABG pH POC ABG pCO2 POC ABG pO2 Sodium Potassium Chloride Carbon Dioxide BUN Creatinine Glucose POC Glucose 233 H 136 H 201 H Lactic Acid Calcium Phosphorus Total Bilirubin AST ALT Total Creatine Kinase CK-MB (CK-2) Troponin T Total Protein Albumin HDL Cholesterol Salicylates Acetaminophen Crossmatch 10/28/18 10/28/18 10/28/18 11:17 16:34 19:51 WBC RBC Hgb Hct MCV MCHC RDW Plt Count Lymph % (Auto) Hughes % (Auto) Hughes # Seg Neutrophils % Seg Neuts % (Manual) Lymphocytes % (Manual) Monocytes % (Manual) Seg Neutrophils # Seg Neutrophils # Man Lymphocytes # (Manual) Monocytes # (Manual) APTT Heparin Anti-Xa Level < 0.10 L POC ABG pH POC ABG pCO2 POC ABG pO2 Sodium Potassium Chloride Carbon Dioxide BUN Creatinine Glucose POC Glucose 116 H 168 H Lactic Acid Calcium Phosphorus Total Bilirubin AST ALT Total Creatine Kinase CK-MB (CK-2) Troponin T Total Protein Albumin HDL Cholesterol Salicylates Acetaminophen Crossmatch 10/28/18 10/29/18 10/29/18 21:52 07:11 07:11 WBC RBC Hgb Hct MCV MCHC RDW Plt Count 470 H Lymph % (Auto) Hughes % (Auto) Hughes # Seg Neutrophils % Seg Neuts % (Manual) Lymphocytes % (Manual) Monocytes % (Manual) Seg Neutrophils # Seg Neutrophils # Man Lymphocytes # (Manual) Monocytes # (Manual) APTT Heparin Anti-Xa Level 0.13 L POC ABG pH POC ABG pCO2 POC ABG pO2 Sodium Potassium Chloride Carbon Dioxide BUN Creatinine Glucose POC Glucose 159 H Lactic Acid Calcium Phosphorus Total Bilirubin AST ALT Total Creatine Kinase CK-MB (CK-2) Troponin T Total Protein Albumin HDL Cholesterol Salicylates Acetaminophen Crossmatch 10/29/18 10/29/18 10/29/18 07:11 07:43 11:29 WBC RBC Hgb Hct MCV MCHC RDW Plt Count Lymph % (Auto) Hughes % (Auto) Hughes # Seg Neutrophils % Seg Neuts % (Manual) Lymphocytes % (Manual) Monocytes % (Manual) Seg Neutrophils # Seg Neutrophils # Man Lymphocytes # (Manual) Monocytes # (Manual) APTT Heparin Anti-Xa Level POC ABG pH POC ABG pCO2 POC ABG pO2 Sodium Potassium Chloride Carbon Dioxide BUN 7 L Creatinine 0.5 L Glucose 122 H POC Glucose 147 H 165 H Lactic Acid Calcium 8.2 L Phosphorus Total Bilirubin AST ALT Total Creatine Kinase CK-MB (CK-2) Troponin T Total Protein Albumin HDL Cholesterol Salicylates Acetaminophen Crossmatch 10/29/18 10/29/18 10/30/18 19:50 22:11 00:11 WBC RBC Hgb Hct MCV MCHC RDW Plt Count Lymph % (Auto) Hughes % (Auto) Hughes # Seg Neutrophils % Seg Neuts % (Manual) Lymphocytes % (Manual) Monocytes % (Manual) Seg Neutrophils # Seg Neutrophils # Man Lymphocytes # (Manual) Monocytes # (Manual) APTT Heparin Anti-Xa Level 0.25 L POC ABG pH POC ABG pCO2 POC ABG pO2 Sodium Potassium Chloride Carbon Dioxide BUN Creatinine Glucose POC Glucose 166 H 173 H Lactic Acid Calcium Phosphorus Total Bilirubin AST ALT Total Creatine Kinase CK-MB (CK-2) Troponin T Total Protein Albumin HDL Cholesterol Salicylates Acetaminophen Crossmatch 10/30/18 10/30/18 10/30/18 04:22 04:22 07:47 WBC 27.0 H RBC 3.16 L Hgb 10.0 L Hct 28.8 L D MCV MCHC 35 H RDW Plt Count Lymph % (Auto) Hughes % (Auto) Hughes # Seg Neutrophils % Seg Neuts % (Manual) Lymphocytes % (Manual) 1.5 L Monocytes % (Manual) Seg Neutrophils # Seg Neutrophils # Man 18.6 H Lymphocytes # (Manual) 0.4 L Monocytes # (Manual) APTT Heparin Anti-Xa Level POC ABG pH POC ABG pCO2 POC ABG pO2 Sodium Potassium Chloride Carbon Dioxide BUN Creatinine Glucose 224 H POC Glucose 168 H Lactic Acid Calcium 7.5 L Phosphorus Total Bilirubin AST ALT Total Creatine Kinase CK-MB (CK-2) Troponin T Total Protein Albumin HDL Cholesterol Salicylates Acetaminophen Crossmatch 10/30/18 10/30/18 10/30/18 07:55 11:20 16:41 WBC RBC Hgb Hct MCV MCHC RDW Plt Count Lymph % (Auto) Hughes % (Auto) Hughes # Seg Neutrophils % Seg Neuts % (Manual) Lymphocytes % (Manual) Monocytes % (Manual) Seg Neutrophils # Seg Neutrophils # Man Lymphocytes # (Manual) Monocytes # (Manual) APTT Heparin Anti-Xa Level < 0.10 L POC ABG pH POC ABG pCO2 POC ABG pO2 Sodium Potassium Chloride Carbon Dioxide BUN Creatinine Glucose POC Glucose 165 H 142 H Lactic Acid Calcium Phosphorus Total Bilirubin AST ALT Total Creatine Kinase CK-MB (CK-2) Troponin T Total Protein Albumin HDL Cholesterol Salicylates Acetaminophen Crossmatch 10/30/18 10/30/18 10/31/18 20:51 21:20 05:21 WBC RBC Hgb 9.0 L Hct 26.6 L MCV MCHC RDW Plt Count Lymph % (Auto) Hughes % (Auto) Hughes # Seg Neutrophils % Seg Neuts % (Manual) Lymphocytes % (Manual) Monocytes % (Manual) Seg Neutrophils # Seg Neutrophils # Man Lymphocytes # (Manual) Monocytes # (Manual) APTT Heparin Anti-Xa Level < 0.10 L POC ABG pH POC ABG pCO2 POC ABG pO2 Sodium Potassium Chloride Carbon Dioxide BUN Creatinine Glucose POC Glucose 136 H Lactic Acid Calcium Phosphorus Total Bilirubin AST ALT Total Creatine Kinase CK-MB (CK-2) Troponin T Total Protein Albumin HDL Cholesterol Salicylates Acetaminophen Crossmatch 10/31/18 10/31/18 10/31/18 08:07 10:19 12:12 WBC RBC Hgb Hct MCV MCHC RDW Plt Count Lymph % (Auto) Hughes % (Auto) Hughes # Seg Neutrophils % Seg Neuts % (Manual) Lymphocytes % (Manual) Monocytes % (Manual) Seg Neutrophils # Seg Neutrophils # Man Lymphocytes # (Manual) Monocytes # (Manual) APTT Heparin Anti-Xa Level POC ABG pH POC ABG pCO2 POC ABG pO2 Sodium Potassium Chloride Carbon Dioxide BUN Creatinine Glucose POC Glucose 155 H 194 H Lactic Acid Calcium Phosphorus Total Bilirubin AST ALT Total Creatine Kinase CK-MB (CK-2) Troponin T Total Protein Albumin HDL Cholesterol Salicylates Acetaminophen Crossmatch See Detail 10/31/18 10/31/18 10/31/18 16:07 16:56 21:14 WBC RBC Hgb Hct MCV MCHC RDW Plt Count Lymph % (Auto) Hughes % (Auto) Hughes # Seg Neutrophils % Seg Neuts % (Manual) Lymphocytes % (Manual) Monocytes % (Manual) Seg Neutrophils # Seg Neutrophils # Man Lymphocytes # (Manual) Monocytes # (Manual) APTT Heparin Anti-Xa Level 1.20 H POC ABG pH POC ABG pCO2 POC ABG pO2 Sodium Potassium Chloride Carbon Dioxide BUN Creatinine Glucose POC Glucose 354 H 234 H Lactic Acid Calcium Phosphorus Total Bilirubin AST ALT Total Creatine Kinase CK-MB (CK-2) Troponin T Total Protein Albumin HDL Cholesterol Salicylates Acetaminophen Crossmatch 11/01/18 11/01/18 11/01/18 00:52 05:52 05:52 WBC 12.5 H RBC 2.95 L Hgb 9.1 L Hct 27.4 L MCV MCHC RDW 15.3 H Plt Count Lymph % (Auto) Hughes % (Auto) Hughes # Seg Neutrophils % Seg Neuts % (Manual) Lymphocytes % (Manual) Monocytes % (Manual) Seg Neutrophils # Seg Neutrophils # Man Lymphocytes # (Manual) Monocytes # (Manual) APTT Heparin Anti-Xa Level 1.53 H POC ABG pH POC ABG pCO2 POC ABG pO2 Sodium Potassium Chloride Carbon Dioxide BUN Creatinine 0.5 L Glucose 169 H POC Glucose Lactic Acid Calcium 8.3 L Phosphorus Total Bilirubin AST ALT Total Creatine Kinase CK-MB (CK-2) Troponin T Total Protein 6.2 L Albumin 2.3 L HDL Cholesterol Salicylates Acetaminophen Crossmatch 11/01/18 11/01/18 11/01/18 08:17 10:57 11:38 WBC RBC Hgb Hct MCV MCHC RDW Plt Count Lymph % (Auto) Hughes % (Auto) Hughes # Seg Neutrophils % Seg Neuts % (Manual) Lymphocytes % (Manual) Monocytes % (Manual) Seg Neutrophils # Seg Neutrophils # Man Lymphocytes # (Manual) Monocytes # (Manual) APTT Heparin Anti-Xa Level 1.05 H POC ABG pH POC ABG pCO2 POC ABG pO2 Sodium Potassium Chloride Carbon Dioxide BUN Creatinine Glucose POC Glucose 158 H 133 H Lactic Acid Calcium Phosphorus Total Bilirubin AST ALT Total Creatine Kinase CK-MB (CK-2) Troponin T Total Protein Albumin HDL Cholesterol Salicylates Acetaminophen Crossmatch 11/01/18 11/01/18 11/02/18 17:08 21:23 04:56 WBC RBC 3.02 L Hgb 9.5 L Hct 28.0 L MCV MCHC RDW Plt Count Lymph % (Auto) Hughes % (Auto) Hughes # Seg Neutrophils % Seg Neuts % (Manual) Lymphocytes % (Manual) Monocytes % (Manual) Seg Neutrophils # Seg Neutrophils # Man Lymphocytes # (Manual) Monocytes # (Manual) APTT Heparin Anti-Xa Level POC ABG pH POC ABG pCO2 POC ABG pO2 Sodium Potassium Chloride Carbon Dioxide BUN Creatinine Glucose POC Glucose 156 H 213 H Lactic Acid Calcium Phosphorus Total Bilirubin AST ALT Total Creatine Kinase CK-MB (CK-2) Troponin T Total Protein Albumin HDL Cholesterol Salicylates Acetaminophen Crossmatch 11/02/18 11/02/18 11/02/18 04:56 08:38 11:23 WBC RBC Hgb Hct MCV MCHC RDW Plt Count Lymph % (Auto) Hughes % (Auto) Hughes # Seg Neutrophils % Seg Neuts % (Manual) Lymphocytes % (Manual) Monocytes % (Manual) Seg Neutrophils # Seg Neutrophils # Man Lymphocytes # (Manual) Monocytes # (Manual) APTT Heparin Anti-Xa Level POC ABG pH POC ABG pCO2 POC ABG pO2 Sodium Potassium Chloride Carbon Dioxide BUN Creatinine 0.5 L Glucose 141 H POC Glucose 173 H 272 H Lactic Acid Calcium 8.2 L Phosphorus Total Bilirubin AST 43 H ALT Total Creatine Kinase CK-MB (CK-2) Troponin T Total Protein 6.1 L Albumin 2.2 L HDL Cholesterol Salicylates Acetaminophen Crossmatch 11/02/18 11/03/18 11/03/18 22:16 04:38 04:38 WBC 11.6 H RBC 3.20 L Hgb 9.8 L Hct 29.2 L MCV MCHC RDW Plt Count Lymph % (Auto) Hughes % (Auto) Hughes # Seg Neutrophils % Seg Neuts % (Manual) Lymphocytes % (Manual) Monocytes % (Manual) Seg Neutrophils # Seg Neutrophils # Man Lymphocytes # (Manual) Monocytes # (Manual) APTT Heparin Anti-Xa Level POC ABG pH POC ABG pCO2 POC ABG pO2 Sodium 135 L Potassium Chloride Carbon Dioxide BUN Creatinine 0.5 L Glucose 160 H POC Glucose 182 H Lactic Acid Calcium Phosphorus Total Bilirubin AST 46 H ALT Total Creatine Kinase CK-MB (CK-2) Troponin T Total Protein Albumin 2.3 L HDL Cholesterol Salicylates Acetaminophen Crossmatch 11/03/18 11/03/18 11/03/18 07:52 10:59 18:10 WBC RBC Hgb Hct MCV MCHC RDW Plt Count Lymph % (Auto) Hughes % (Auto) Hughes # Seg Neutrophils % Seg Neuts % (Manual) Lymphocytes % (Manual) Monocytes % (Manual) Seg Neutrophils # Seg Neutrophils # Man Lymphocytes # (Manual) Monocytes # (Manual) APTT Heparin Anti-Xa Level POC ABG pH POC ABG pCO2 POC ABG pO2 Sodium Potassium Chloride Carbon Dioxide BUN Creatinine Glucose POC Glucose 180 H 159 H 169 H Lactic Acid Calcium Phosphorus Total Bilirubin AST ALT Total Creatine Kinase CK-MB (CK-2) Troponin T Total Protein Albumin HDL Cholesterol Salicylates Acetaminophen Crossmatch 11/04/18 07:46 WBC RBC Hgb Hct MCV MCHC RDW Plt Count Lymph % (Auto) Hughes % (Auto) Hughes # Seg Neutrophils % Seg Neuts % (Manual) Lymphocytes % (Manual) Monocytes % (Manual) Seg Neutrophils # Seg Neutrophils # Man Lymphocytes # (Manual) Monocytes # (Manual) APTT Heparin Anti-Xa Level POC ABG pH POC ABG pCO2 POC ABG pO2 Sodium Potassium Chloride Carbon Dioxide BUN Creatinine Glucose POC Glucose 160 H Lactic Acid Calcium Phosphorus Total Bilirubin AST ALT Total Creatine Kinase CK-MB (CK-2) Troponin T Total Protein Albumin HDL Cholesterol Salicylates Acetaminophen Crossmatch
[2018-11-04] MEDS: HumuLIN R SUB-Q SCH ×4 (10:12→22:40)
[2018-11-04] MEDS: ELIQUIS PO SCH ×2 (10:12→22:39)
[2018-11-04] MEDS: celeXA PO SCH (10:12)
[2018-11-04] MEDS: SUBOXONE 2 MG-0.5 MG SL SCH (10:19)
--- NOTE | 2018-11-04 14:57 | Progress Note ---
Assessment and Plan The patient is deconditioned and still somewhat lethargic. Needs to increase his activity with physical therapy and getting out of bed to chair daily. Continue to encourage his use of incentive spirometer. Continue to encourage increase in his intake of high protein meals. We will DC his Seroquel and decrease the dose of his Suboxone. We'll continue to watch his right foot, gangrene is stable for now. Subjective Date of service: 11/04/18 Principal diagnosis: Ac hypercapnic hypoxemic Resp failure; Drug OD; AE-COPD; NINOSKA; Seizures Interval history: Patient is without complaints. He is cooperative and somewhat more alert and less fidgety this afternoon. There were no significant events overnight Objective - Constitutional Vitals: Vital Signs - 12hr 11/04/18 11/04/18 11/04/18 03:00 04:44 07:47 Temperature 97.5 F L Pulse Rate 84 Pulse Rate [ 94 H Anterior Bilateral Throughout] Respiratory 18 Rate Respiratory 16 Rate [Anterior Bilateral Throughout] Respiratory 17 Rate [Left Leg] Respiratory 17 Rate [Right Arm ] Blood Pressure 96/58 O2 Sat by Pulse 89 94 Oximetry 11/04/18 11/04/18 11/04/18 08:03 12:17 13:30 Temperature 99.0 F Pulse Rate 60 Pulse Rate [ 101 H 94 H Anterior Bilateral Throughout] Respiratory 18 Rate Respiratory 16 16 Rate [Anterior Bilateral Throughout] Respiratory Rate [Left Leg] Respiratory Rate [Right Arm ] Blood Pressure 105/68 O2 Sat by Pulse 94 Oximetry 11/04/18 11/04/18 13:42 14:09 Temperature Pulse Rate 115 H Pulse Rate [ 99 H Anterior Bilateral Throughout] Respiratory Rate Respiratory 16 Rate [Anterior Bilateral Throughout] Respiratory Rate [Left Leg] Respiratory Rate [Right Arm ] Blood Pressure O2 Sat by Pulse Oximetry General appearance: Present: no acute distress - Respiratory Respiratory effort: normal Extremities: pulses intact (posterior tibial pulses intact), abnormal (right g roin incision is clean dry and intact without evidence of hematoma or infection) Extremity abnormal: other (left stump is warm) - Labs CBC & Chem 7: 11/03/18 04:38 11/03/18 04:38 Labs: Abnormal lab results 10/31/18 11/03/18 11/04/18 Range/Units 08:07 18:10 07:46 POC Glucose 169 H 160 H (70-105) Crossmatch See Detail 11/04/18 Range/Units 11:42 POC Glucose 149 H (70-105) Crossmatch Medications & Allergies - Medications Allergies/Adverse Reactions: Allergies No Known Allergies Allergy (Verified 10/31/14 11:20) Home Medications: Home Medications Medication Instructions Recorded Confirmed Last Taken Type Gabapentin [Neurontin] 90 mg PO Q8HR 04/22/15 11/01/18 04/21/15 History ALPRAZolam [Xanax TAB] 1 mg PO TID PRN #30 tablet 03/28/16 11/01/18 Unknown Rx Albuterol Sulfate [Ventolin HFA] 2 puff IH Q4H PRN #1 hfa.aer.ad 03/28/16 11/01/18 Unknown Rx Ciprofloxacin HCl [Ciprofloxacin 500 mg PO Q12HR #30 tab 03/28/16 11/01/18 Unknown Rx TAB] Citalopram [celeXA] 10 mg PO QDAY #30 tablet 03/28/16 11/01/18 Unknown Rx Nicotine [Habitrol] 14 mg TD QDAY #30 patch 03/28/16 11/01/18 Unknown Rx Sitagliptin Phos/Metformin HCl 1 tab PO QDAY #30 tbmp.24hr 03/28/16 11/01/18 Unknown Rx [Janumet XR 100-1,000 mg] oxyCODONE /ACETAMINOPHEN [Percocet 1 tab PO Q6H PRN #60 tablet 03/28/16 11/01/18 Unknown Rx 5/325 mg] Active Medications: Generic Name Dose Route Start Last Admin Trade Name Freq PRN Reason Stop Dose Admin Acetaminophen 650 mg 10/11/18 04:04 10/21/18 22:21 Tylenol PO 650 mg Q4H PRN Administration Pain MILD(1-3)/Fever >100.5/HOLLINS Albuterol 2.5 mg 10/19/18 00:54 Proventil IH Q4HRT PRN Shortness Of Breath Albuterol/Ipratropium 1 ampul 10/19/18 08:00 11/04/18 13:30 Duoneb *Not For Prn Use* IH 1 ampul TIDRT ISAAC Administration Alprazolam 1 mg 10/20/18 13:06 11/03/18 18:33 Xanax PO 1 mg TID PRN Administration Anxiety Apixaban 10 mg 11/01/18 16:00 11/04/18 10:12 Eliquis PO 11/08/18 10:01 10 mg Q12HR ISAAC Administration Protocol Apixaban 5 mg 11/08/18 22:00 Eliquis PO Q12HR ISAAC Protocol Aspirin 81 mg 11/01/18 16:00 11/04/18 10:11 Halfprin Ec PO 81 mg QDAY ISAAC Administration Buprenorphine HCl 3 each 11/03/18 15:00 11/04/18 10:19 Suboxone 2 Mg-0.5 Mg SL 3 each QDAY ISAAC Administration Buprenorphine HCl 2 each 11/05/18 10:00 Suboxone 2 Mg-0.5 Mg SL QDAY ISAAC Citalopram Hydrobromide 10 mg 10/21/18 10:00 11/04/18 10:12 Celexa PO 10 mg QDAY ISAAC Administration Citalopram Hydrobromide 20 mg 11/05/18 10:00 Celexa PO QDAY ISAAC Dextrose 0 ml 10/11/18 03:57 10/11/18 10:18 D50w (25gm) Syringe IV 10 ml PRN PRN Administration Hypoglycemia Docusate Sodium 100 mg 11/04/18 22:00 Colace PO BID ISAAC Famotidine 20 mg 10/15/18 10:00 11/04/18 10:11 Pepcid PO 20 mg BID ISAAC Administration Insulin Human Regular 0 units 10/17/18 11:30 11/04/18 11:49 Humulin R SUB-Q Not Given ACHS [facility] Protocol Metoprolol Tartrate 25 mg 10/18/18 22:00 11/04/18 14:09 Lopressor PO 25 mg BID ISAAC Administration Metoprolol Tartrate 2.5 mg 10/18/18 18:51 10/18/18 22:19 Lopressor IV 2.5 mg Q6H PRN Administration Tachyarrhythmias Naloxone HCl 0.1 mg 10/29/18 16:03 Narcan 0.4 Mg/1 Ml IV Q2MIN PRN Res Rate </= 8 or 02 SAT < 92% Ondansetron HCl 4 mg 10/11/18 04:04 11/01/18 22:12 Zofran IV 4 mg Q8H PRN Administration Nausea And Vomiting Oxycodone/Acetaminophen 1 tab 10/18/18 13:45 11/03/18 16:29 Percocet 5/325 PO 1 tab Q6H PRN Administration Pain, Moderate (4-6)
[2018-11-04 16:02] LABS: Hematocrit 30.8 % (35.5-45.6); Hemoglobin 10.4 gm/dl (11.8-15.2); Mean Corpuscular HGB Conc 34 % (32-34); Mean Corpuscular Volume 90 fl (84-94); Platelet Count 324 K/mm3 (140-440); Red Blood Count 3.41 M/mm3 (3.65-5.03); Red Cell Distribution Width 14.4 % (13.2-15.2)
[2018-11-04 16:13] LABS: Alanine Aminotransferase 23 units/L (7-56); Albumin 2.6 g/dL (3.9-5); BUN/Creatinine Ratio 24; Blood Urea Nitrogen 12 mg/dL (9-20); Calcium 8.5 mg/dL (8.4-10.2); Hemolysis Index 0
[2018-11-04] MEDS: COLACE PO SCH (22:39)
[2018-11-05] MEDS: PERCOCET 5/325 PO PRN ×3 (05:53→20:23)
[2018-11-05] MEDS: DUONEB *Not for PRN Use IH SCH ×3 (07:53→19:16)
[2018-11-05] MEDS: HumuLIN R SUB-Q SCH ×4 (08:57→22:50)
[2018-11-05] MEDS: ELIQUIS PO SCH ×2 (09:55→22:51)
[2018-11-05] MEDS: PEPCID PO SCH ×2 (09:55→22:51)
[2018-11-05] MEDS: HALFPRIN EC PO SCH (09:55)
[2018-11-05] MEDS: celeXA PO SCH (09:55)
[2018-11-05] MEDS: SUBOXONE 2 MG-0.5 MG SL SCH (09:56)
[2018-11-05] MEDS: LOPRESSOR PO SCH ×2 (09:56→22:50)
[2018-11-05] MEDS: COLACE PO SCH ×2 (10:06→22:50)
[2018-11-05] MEDS ORDERED: NACL 0.9% 500 ML 500 ML IV ONE (11:08)
[2018-11-05] MEDS: XANAX PO PRN ×2 (14:07→22:54)
--- NOTE | 2018-11-05 14:23 | Progress Note ---
Assessment and Plan Assessment and plan: Patient is a 58 yo man with a history of COPD, DM, hypertension, asthma, peripheral neuropathy, chronic hepatitis C virus, panic attack. anxiety disorder, polysubstance abuse including alcohol, cocaine and heroin who presented to [facility] on 10/11/18 with AMS. He was diagnosis with septic shock due to pneumonia, placed on abx and vasopressors. He was also diagnosis with DKA/respiratory failure/Status epilepticus/ARF. Patient s/p left BKA, right open thrombectomy and aortic stenting and bilateral common iliac artery stenting but right EIA occluded requiring another open thrombectomy and stenting of the right iliac system. 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 followed by revascularization right leg on 10/31/18: Vascular following, input noted, started Eliquis -Acute/subacute right CVA, Initial CT head, no acute finding, 10/13/18 found to have left-sided weakness, MRI brain showed numerous acute/subacute multilobar infarcts involving the cerebrum and cerebellum including Hemorrhagic transformation of the right frontal and biparietal lobes, was Not a candidate for tPA, monitor off aspirin per teleneurology, QUIQUE ; no thrombus or shunt, Speech recommended pureed diet -Severe sepsis with shock; present on admission Probably due to LLL aspiration pneumonia, completed total 7 days of antibiotics, off vasopressors -Paroxysmal atrial fibrillation. on Eliquis Cardiology is following -LLL pneumonia: completed treatment -Acute respiratory failure with hypoxia and hypercapnia: Requiring intubation, s/p extubation, treat with nebs and supplemental O2 as needed -DKA, resolved: cont SSI for now, diabetic diet -Acute toxic/metabolic encephalopathy, improved -Seizure disorder; seizure precautions, no new episodes of seizure, Ativan when necessary, neurology did not recommend antiepileptic medications -Elevated troponin/NSTEMI type 2, Echocardiogram for further evaluation - Ef 25- 30%, Cardiology consulted, medical Mx for now, -Acute systolic CHF, Ef 25-30%, anti-failure medications, Cardiology is following -ARF, due to ATN and vasomotor nephropathy, poa, resolved -Hyperkalemia, resolved -Abnormal LFT, Probably due to sepsis, resolving and chronic hepatitis C virus infection, Abdominal US showed no sign of cirrhosis: monitor cmp -Anemia, appears acute on chronic AOCD: monitor closely on iv heparin drip -Severe protein calorie malnutrition, bmi 14.8; nutrition supplements, Dietitian consulted -DVT prophylaxis with Eliquis and GI prophylaxis with famotidine -Tobacco abuse. Patient with a long smoking history of one pack per day or more since age 9. Patient was counseled on smoking cessation. Disposition: continue inpatient care. Vascular procedure on right leg 10/31/18 and now the right foot is warm. Possible rehab vs Subacute rehab placement==>Physical therapy recommended Subacute Rehab but re-evaluation pending. transfer out of ICU on 11/01/18 to [facility], now transferred out [facility] 11/03/18 refusing labwork, monitor cbc and bmp closely, counseling done restraints renewed History Interval history: Patient was seen and examined. Follow-up on current diagnosis of PVD. No overnig ht events reported to me. Patient denies any chest pain, shortness breath, nausea/vomiting or severe headaches. Imaging, nursing note, chart, labs and old chart reviewed. Discussed with patient. Hospitalist Physical - Physical exam Narrative exam: Gen: severely cachectic, bmi 14.8, disable, NAD, Awake, Alert, Orientated x 2 HEENT: NCAT, EOMI, PERRL, OP Clear Neck: supple, no adenopathy, no thyromegaly, no JVD CVS/Heart: RRR, normal S1S2, pulses present weak, right foot warm since intervention (prior notes incorrect) Chest/Lungs: diminished bs bilateral, Symmetrical chest expansion, good air entry bilaterally GI/Abdomen: soft, NTND, good bowel sounds, no guarding or rebound /Bladder: no suprapubic tenderness, no CVA or paraspinal tenderness Extermity/Skin: left bka, right toes and foot dry gangrene MSK: FROM x 4 Neuro: CN 2-12 grossly intact, no new focal deficits Psych: calm but confused at times - Constitutional Vitals: Temp Pulse Resp BP Pulse Ox 98.0 F 93 H 18 100/55 95 11/05/18 12:10 11/05/18 13:48 11/05/18 13:48 11/05/18 12:10 11/05/18 07:55 General appearance: Present: no acute distress Results - Labs CBC & Chem 7: 11/04/18 15:45 11/04/18 15:45 Labs: Laboratory Last Values WBC 11.5 K/mm3 (4.5-11.0) H 11/04/18 15:45 RBC 3.41 M/mm3 (3.65-5.03) L 11/04/18 15:45 Hgb 10.4 gm/dl (11.8-15.2) L 11/04/18 15:45 Hct 30.8 % (35.5-45.6) L 11/04/18 15:45 MCV 90 fl (84-94) 11/04/18 15:45 MCH 31 pg (28-32) 11/04/18 15:45 MCHC 34 % (32-34) 11/04/18 15:45 RDW 14.4 % (13.2-15.2) 11/04/18 15:45 Plt Count 324 K/mm3 (140-440) 11/04/18 15:45 Lymph % (Auto) 11.3 % (13.4-35.0) L 10/24/18 05:56 [place] % (Auto) 7.1 % (0.0-7.3) 10/24/18 05:56 Eos % (Auto) 1.0 % (0.0-4.3) 10/24/18 05:56 Baso % (Auto) 0.4 % (0.0-1.8) 10/24/18 05:56 Lymph # 1.3 K/mm3 (1.2-5.4) 10/24/18 05:56 [place] # 0.8 K/mm3 (0.0-0.8) 10/24/18 05:56 Eos # 0.1 K/mm3 (0.0-0.4) 10/24/18 05:56 Baso # 0.0 K/mm3 (0.0-0.1) 10/24/18 05:56 Add Manual Diff Complete 10/30/18 04:22 Total Counted 200 10/30/18 04:22 Seg Neutrophils % Back Roller 10/30/18 04:22 Seg Neuts % (Manual) 69.0 % (40.0-70.0) 10/30/18 04:22 26.0 % 10/30/18 04:22 1.5 % (13.4-35.0) L 10/30/18 04:22 Reactive Lymphs % (Man) 0 % 10/30/18 04:22 2.0 % (0.0-7.3) 10/30/18 04:22 0 % (0.0-4.3) 10/30/18 04:22 0 % (0.0-1.8) 10/30/18 04:22 1.0 % 10/30/18 04:22 0.5 % 10/30/18 04:22 0 % 10/30/18 04:22 0 % 10/30/18 04:22 Nucleated RBC % Not Reportable 10/30/18 04:22 Seg Neutrophils # 9.4 K/mm3 (1.8-7.7) H 10/24/18 05:56 Seg Neutrophils # Man 18.6 K/mm3 (1.8-7.7) H 10/30/18 04:22 Band Neutrophils # 7.0 K/mm3 10/30/18 04:22 0.4 K/mm3 (1.2-5.4) L 10/30/18 04:22 Abs React Lymphs (Man) 0.0 K/mm3 10/30/18 04:22 0.5 K/mm3 (0.0-0.8) 10/30/18 04:22 0.0 K/mm3 (0.0-0.4) 10/30/18 04:22 0.0 K/mm3 (0.0-0.1) 10/30/18 04:22 0.3 K/mm3 10/30/18 04:22 0.1 K/mm3 10/30/18 04:22 0.0 K/mm3 10/30/18 04:22 Blast Cells # 0.0 K/mm3 10/30/18 04:22 Pathologist Review 10/11/18 00:16 WBC Morphology Not Reportable 10/30/18 04:22 WBC Morphology TNR 10/30/18 04:22 Hypersegmented Neuts Not Reportable 10/30/18 04:22 Hyposegmented Neuts Not Reportable 10/30/18 04:22 Hypogranular Neuts Not Reportable 10/30/18 04:22 Not Reportable 10/30/18 04:22 Not Reportable 10/30/18 04:22 Not Reportable 10/30/18 04:22 Not Reportable 10/30/18 04:22 Not Reportable 10/30/18 04:22 Not Reportable 10/30/18 04:22 Consistent w auto 10/30/18 04:22 Not Reportable 10/30/18 04:22 Plt Clumps, EDTA Not Reportable 10/30/18 04:22 Not Reportable 10/30/18 04:22 Not Reportable 10/30/18 04:22 Not Reportable 10/30/18 04:22 Plt Morphology Comment Not Reportable 10/30/18 04:22 RBC Morphology Not Reportable 10/30/18 04:22 Dimorphic RBCs Not Reportable 10/30/18 04:22 Not Reportable 10/30/18 04:22 Not Reportable 10/30/18 04:22 Not Reportable 10/30/18 04:22 Not Reportable 10/30/18 04:22 Not Reportable 10/30/18 04:22 Not Reportable 10/30/18 04:22 Not Reportable 10/30/18 04:22 Not Reportable 10/30/18 04:22 Not Reportable 10/30/18 04:22 Not Reportable 10/30/18 04:22 Not Reportable 10/30/18 04:22 Not Reportable 10/30/18 04:22 Not Reportable 10/30/18 04:22 Not Reportable 10/30/18 04:22 Not Reportable 10/30/18 04:22 Not Reportable 10/30/18 04:22 Not Reportable 10/30/18 04:22 Not Reportable 10/30/18 04:22 Not Reportable 10/30/18 04:22 Acanthocytes (Spur) Not Reportable 10/30/18 04:22 Rouleaux Not Reportable 10/30/18 04:22 Not Reportable 10/30/18 04:22 Not Reportable 10/30/18 04:22 Not Reportable 10/30/18 04:22 Not Reportable 10/30/18 04:22 Hem Pathologist Commnt No 10/30/18 04:22 PT 13.9 Sec. (12.2-14.9) 10/29/18 07:11 INR 1.01 (0.87-1.13) 10/29/18 07:11 APTT 30.3 Sec. (24.2-36.6) 10/27/18 13:33 Heparin Anti-Xa Level 1.05 U.I./ml (0.3-0.7) H 11/01/18 11:38 Heparin Anti-Xa, Unfract Negative (Negative) 10/15/18 12:00 POC ABG pH 7.393 (7.35-7.45) 10/16/18 12:51 POC ABG pCO2 48.9 (35-45) H 10/16/18 12:51 POC ABG pO2 92 (80-105) 10/16/18 12:51 POC ABG HCO3 29.8 (22-26 mml/L) 10/16/18 12:51 POC ABG Total CO2 31 (23-27mmol/L) 10/16/18 12:51 POC ABG O2 Sat 97 10/16/18 12:51 POC ABG Base Excess 5 ((-2) - (+3)mmol/L) 10/16/18 12:51 35 % 10/16/18 12:51 Sodium 133 mmol/L (137-145) L 11/04/18 15:45 Potassium 4.3 mmol/L (3.6-5.0) 11/04/18 15:45 Chloride 95.6 mmol/L (98-107) L 11/04/18 15:45 Carbon Dioxide 28 mmol/L (22-30) 11/04/18 15:45 14 mmol/L 11/04/18 15:45 BUN 12 mg/dL (9-20) 11/04/18 15:45 0.5 mg/dL (0.8-1.5) L 11/04/18 15:45 Estimated GFR > 60 ml/min 11/04/18 15:45 24 % 11/04/18 15:45 Glucose 163 mg/dL (75-100) H 11/04/18 15:45 POC Glucose 149 (70-105) H 11/05/18 12:13 Lactic Acid 2.70 mmol/L (0.7-2.0) H* 10/11/18 12:30 Calcium 8.5 mg/dL (8.4-10.2) 11/04/18 15:45 Phosphorus 2.80 mg/dL (2.5-4.5) 10/21/18 04:59 Magnesium 1.70 mg/dL (1.7-2.3) 11/01/18 05:52 0.70 mg/dL (0.1-1.2) 11/04/18 15:45 AST 38 units/L (5-40) 11/04/18 15:45 ALT 23 units/L (7-56) 11/04/18 15:45 54 units/L (35-129) 11/04/18 15:45 3647 units/L (55-170) H 10/12/18 04:04 CK-MB (CK-2) 48.3 ng/mL (0.0-4.0) H 10/12/18 04:04 CK-MB (CK-2) Rel Index 1.3 (0-4) 10/12/18 04:04 0.816 ng/mL (0.00-0.029) H* 10/13/18 16:15 6.8 g/dL (6.3-8.2) 11/04/18 15:45 2.6 g/dL (3.9-5) L 11/04/18 15:45 0.6 % 11/04/18 15:45 0.073 g/L (0.200-0.400) L 11/04/18 15:45 Triglycerides 87 mg/dL (2-149) 10/11/18 00:16 Cholesterol 73 mg/dL (50-199) 10/11/18 00:16 51 mg/dL (50-130) 10/11/18 00:16 19 mg/dL (40-59) L 10/11/18 00:16 3.84 % 10/11/18 00:16 See scanned report 10/15/18 12:00 Yellow (Yellow) 10/11/18 01:42 Cloudy (Clear) 10/11/18 01:42 6.0 (5.0-7.0) 10/11/18 01:42 Ur Specific [place] 1.011 (1.003-1.030) 10/11/18 01:42 100 mg/dl mg/dL (Negative) 10/11/18 01:42 >=500 mg/dL (Negative) 10/11/18 01:42 Neg mg/dL (Negative) 10/11/18 01:42 Mod (Negative) 10/11/18 01:42 Neg (Negative) 10/11/18 01:42 Neg (Negative) 10/11/18 01:42 4.0 mg/dL (<2.0) 10/11/18 01:42 Ur Leukocyte Esterase Neg (Negative) 10/11/18 01:42 5.0 /HPF (0.0-6.0) 10/11/18 01:42 2.0 /HPF (0.0-6.0) 10/11/18 01:42 U Epithel Cells (Auto) < 1.0 /HPF (0-13.0) 10/11/18 01:42 Amorphous Crystals 1+ 10/11/18 01:42 Few /HPF 10/11/18 01:42 2+ /HPF ([employer] OPERATOR) 10/11/18 01:42 Vancomycin Trough 8.3 ug/mL (5.0-20.0) 10/13/18 05:40 Salicylates < 0.3 mg/dL (2.8-20.0) L 10/11/18 00:16 Presumptive positive 10/11/18 01:42 Presumptive negative 10/11/18 01:42 Acetaminophen < 5.0 ug/mL (10.0-30.0) L 10/11/18 00:16 Ur Barbiturates Screen Presumptive negative 10/11/18 01:42 Ur Phencyclidine Scrn Presumptive negative 10/11/18 01:42 Ur Amphetamines Screen Presumptive positive 10/11/18 01:42 U Benzodiazepines Scrn Presumptive positive 10/11/18 01:42 Presumptive negative 10/11/18 01:42 U Marijuana (THC) Screen Presumptive negative 10/11/18 01:42 Disclamer 10/11/18 01:42 Plasma/Serum Alcohol < 0.01 % (0-0.07) 10/11/18 00:16 Heparin-induced Plt Ab Negative (Negative) 10/15/18 12:00 UF Heparin High Dose 0 % Release 10/15/18 12:00 AURELIO UFH Low Dose 0.1 0 % Release 10/15/18 12:00 AURELIO UFH Low Dose 0.5 0 % Release 10/15/18 12:00 Blood Type O POSITIVE 10/31/18 08:07 Antibody Screen Positive 10/31/18 08:07 Antibody Identification Negative 10/31/18 08:07 Direct Antiglob Test Negative 10/31/18 08:07 SHASHANK, Poly Interpret Negative 10/31/18 08:07 Crossmatch See Detail 10/31/18 08:07 Active Medications - Current Medications Current Medications: Generic Name Dose Route Start Last Admin Trade Name Freq PRN Reason Stop Dose Admin Acetaminophen 650 mg 10/11/18 04:04 10/21/18 22:21 Tylenol PO 650 mg Q4H PRN Administration Pain MILD(1-3)/Fever >100.5/HOLLINS Albuterol 2.5 mg 10/19/18 00:54 Proventil IH Q4HRT PRN Shortness Of Breath Albuterol/Ipratropium 1 ampul 10/19/18 08:00 11/05/18 13:47 Duoneb *Not For Prn Use* IH 1 ampul TIDRT ISAAC Administration Alprazolam 1 mg 10/20/18 13:06 11/05/18 14:07 Xanax PO 1 mg TID PRN Administration Anxiety Apixaban 10 mg 11/01/18 16:00 11/05/18 09:55 Eliquis PO 11/08/18 10:01 10 mg Q12HR ISAAC Administration Protocol Apixaban 5 mg 11/08/18 22:00 Eliquis PO Q12HR ISAAC Protocol Aspirin 81 mg 11/01/18 16:00 11/05/18 09:55 Halfprin Ec PO 81 mg QDAY ISAAC Administration Buprenorphine HCl 2 each 11/05/18 10:00 11/05/18 09:56 Suboxone 2 Mg-0.5 Mg SL 2 each QDAY ISAAC Administration Citalopram Hydrobromide 20 mg 11/05/18 10:00 11/05/18 09:55 Celexa PO 20 mg QDAY ISAAC Administration Dextrose 0 ml 10/11/18 03:57 10/11/18 10:18 D50w (25gm) Syringe IV 10 ml PRN PRN Administration Hypoglycemia Docusate Sodium 100 mg 11/04/18 22:00 11/05/18 10:06 Colace PO 100 mg BID ISAAC Administration Famotidine 20 mg 10/15/18 10:00 11/05/18 09:55 Pepcid PO 20 mg BID ISAAC Administration Insulin Human Regular 0 units 10/17/18 11:30 11/05/18 12:09 Humulin R SUB-Q Not Given ACHS ISAAC Protocol Metoprolol Tartrate 25 mg 10/18/18 22:00 11/05/18 09:56 Lopressor PO Not Given BID ISAAC Metoprolol Tartrate 2.5 mg 10/18/18 18:51 10/18/18 22:19 Lopressor IV 2.5 mg Q6H PRN Administration Tachyarrhythmias Naloxone HCl 0.1 mg 10/29/18 16:03 Narcan 0.4 Mg/1 Ml IV Q2MIN PRN Res Rate </= 8 or 02 SAT < 92% Ondansetron HCl 4 mg 10/11/18 04:04 11/01/18 22:12 Zofran IV 4 mg Q8H PRN Administration Nausea And Vomiting Oxycodone/Acetaminophen 1 tab 10/18/18 13:45 11/05/18 13:16 Percocet 5/325 PO 1 tab Q6H PRN Administration Pain, Moderate (4-6) Nutrition/Malnutrition Assess - Dietary Evaluation Nutrition/Malnutrition Findings: Nutrition Notes Start: 10/11/18 12:39 Freq: Status: Active Protocol: Document 11/02/18 11:12 SHERLY (Rec: 11/02/18 11:13 SHERLY [id number] [email or web address]) Nutrition Notes Need for Assessment generated from: Low BMI Initial or Follow up Brief Note Subjective/Other Information Pt screened for low BMI. Pt already being followed by [facility]. Nutrition Intervention Follow-Up By: 11/06/18 Additional Comments F/U: intakes
--- NOTE | 2018-11-05 17:57 | Progress Note ---
Assessment and Plan Patient awake. Resting on room air. Not using his O2. O2 saturation 94%. Patient weak. No acute respiratory distress.. - Patient Problems (1) Acute respiratory failure Current Visit: Yes Status: Acute Plan to address problem: O2 2 litres via nasal canula. Albuterol/atrovent aerosol treatments q 6 hours. Patient is on Apixaban Continue famotidine. (2) Acute CVA (cerebrovascular accident) Current Visit: Yes Status: Acute Plan to address problem: Management as per neurology. (3) Altered mental state Current Visit: Yes Status: Acute Qualifiers: Altered mental status type: unspecified Qualified Code(s): R41.82 - Altered mental status, unspecified Plan to address problem: Management as per primary care. (4) Atrial fibrillation Current Visit: Yes Status: Acute Plan to address problem: Management as per primary care and cardiology. Patient is on Apixaban. (5) Diabetes mellitus with hyperglycemia Current Visit: Yes Status: Acute Plan to address problem: Management as per primary care. (6) Polysubstance abuse Current Visit: Yes Status: Chronic Plan to address problem: Management as per primary care. (7) Tobacco use Current Visit: Yes Status: Chronic Plan to address problem: Counselled to stop smoking. Subjective Date of service: 11/05/18 Principal diagnosis: Ac hypercapnic hypoxemic Resp failure; Drug OD; AE-COPD; AK I; Seizures Interval history: Patient awake. Resting on room air. Not using his O2. O2 saturation 94%. Patient weak. No acute respiratory distress. Objective Vital Signs - 12hr 11/05/18 11/05/18 11/05/18 06:50 07:53 07:54 Temperature Pulse Rate Pulse Rate [ 94 H 94 H Anterior Bilateral Throughout] Respiratory 18 Rate Respiratory 18 19 Rate [Anterior Bilateral Throughout] Blood Pressure O2 Sat by Pulse Oximetry 11/05/18 11/05/18 11/05/18 07:55 09:56 09:58 Temperature Pulse Rate 94 H Pulse Rate [ Anterior Bilateral Throughout] Respiratory Rate Respiratory Rate [Anterior Bilateral Throughout] Blood Pressure 92/59 92/59 O2 Sat by Pulse 95 Oximetry 11/05/18 11/05/18 11/05/18 12:08 12:10 13:10 Temperature 98.0 F Pulse Rate 86 92 H Pulse Rate [ Anterior Bilateral Throughout] Respiratory 20 Rate Respiratory Rate [Anterior Bilateral Throughout] Blood Pressure 100/55 O2 Sat by Pulse Oximetry 11/05/18 11/05/18 11/05/18 13:47 13:48 17:09 Temperature 98.2 F Pulse Rate Pulse Rate [ 93 H 93 H Anterior Bilateral Throughout] Respiratory 20 Rate Respiratory 17 18 Rate [Anterior Bilateral Throughout] Blood Pressure 118/66 O2 Sat by Pulse Oximetry 11/05/18 17:28 Temperature Pulse Rate 85 Pulse Rate [ Anterior Bilateral Throughout] Respiratory Rate Respiratory Rate [Anterior Bilateral Throughout] Blood Pressure O2 Sat by Pulse 92 Oximetry Constitutional: no acute distress, alert, other (middle aged but chronically ill looking CM; Atraumatic) Eyes: non-icteric ENT: oropharynx moist Neck: supple, no lymphadenopathy, no JVD Effort: normal Ascultation: Bilateral: diminished breath sounds, rhonchi Percussion: Bilateral: not dull Cardiovascular: irregular rhythm, other (No R/M) Gastrointestinal: normoactive bowel sounds, soft, non-tender, non-distended Integumentary: other (poor turgor) Extremities: no edema, other (s/p Left KBA, ischemic toes on the right with poor pedal pulses) Neurologic: normal mental status, pupils equal and round, other (Left hemiparesis, improving) Psychiatric: mood appropriate, affect normal CBC and BMP: 11/04/18 15:45 11/04/18 15:45 ABG, PT/INR, D-dimer: ABG POC ABG pH 7.393 (7.35-7.45) 10/16/18 12:51 POC ABG pCO2 48.9 (35-45) H 10/16/18 12:51 POC ABG pO2 92 (80-105) 10/16/18 12:51 POC ABG HCO3 29.8 (22-26 mml/L) 10/16/18 12:51 POC ABG Total CO2 31 (23-27mmol/L) 10/16/18 12:51 POC ABG O2 Sat 97 10/16/18 12:51 PT/INR, D-dimer PT 13.9 Sec. (12.2-14.9) 10/29/18 07:11 INR 1.01 (0.87-1.13) 10/29/18 07:11 Abnormal lab findings: Abnormal Labs 10/11/18 10/11/18 10/11/18 00:16 00:16 00:16 WBC 20.1 H RBC Hgb Hct MCV 98 H MCHC RDW 15.4 H Plt Count Lymph % (Auto) Hunt % (Auto) Hunt # Seg Neutrophils % Seg Neuts % (Manual) Lymphocytes % (Manual) 5.0 L Monocytes % (Manual) 25.0 H Seg Neutrophils # Seg Neutrophils # Man 9.2 H Lymphocytes # (Manual) 1.0 L Monocytes # (Manual) 5.0 H APTT Heparin Anti-Xa Level POC ABG pH POC ABG pCO2 POC ABG pO2 Sodium Potassium 5.8 H Chloride Carbon Dioxide 17 L BUN Creatinine 2.2 H Glucose 348 H POC Glucose Lactic Acid 13.70 H* Calcium 7.7 L Phosphorus Total Bilirubin 1.50 H AST 179 H ALT 110 H Total Creatine Kinase 324 H CK-MB (CK-2) Troponin T 0.257 H* Total Protein 5.9 L Albumin 2.9 L Prealbumin HDL Cholesterol 19 L Salicylates Acetaminophen Crossmatch 10/11/18 10/11/18 10/11/18 00:16 00:16 01:21 WBC RBC Hgb Hct MCV MCHC RDW Plt Count Lymph % (Auto) Hunt % (Auto) Hunt # Seg Neutrophils % Seg Neuts % (Manual) Lymphocytes % (Manual) Monocytes % (Manual) Seg Neutrophils # Seg Neutrophils # Man Lymphocytes # (Manual) Monocytes # (Manual) APTT Heparin Anti-Xa Level POC ABG pH 7.110 L POC ABG pCO2 50.3 H POC ABG pO2 65 L Sodium Potassium Chloride Carbon Dioxide BUN Creatinine Glucose POC Glucose Lactic Acid Calcium Phosphorus Total Bilirubin AST ALT Total Creatine Kinase CK-MB (CK-2) Troponin T Total Protein Albumin Prealbumin HDL Cholesterol Salicylates < 0.3 L Acetaminophen < 5.0 L Crossmatch 10/11/18 10/11/18 10/11/18 01:22 03:27 04:14 WBC RBC Hgb Hct MCV MCHC RDW Plt Count Lymph % (Auto) Hunt % (Auto) Hunt # Seg Neutrophils % Seg Neuts % (Manual) Lymphocytes % (Manual) Monocytes % (Manual) Seg Neutrophils # Seg Neutrophils # Man Lymphocytes # (Manual) Monocytes # (Manual) APTT Heparin Anti-Xa Level POC ABG pH POC ABG pCO2 POC ABG pO2 Sodium Potassium Chloride Carbon Dioxide BUN Creatinine Glucose POC Glucose Lactic Acid 8.50 H* 4.10 H* Calcium Phosphorus 4.90 H Total Bilirubin AST ALT Total Creatine Kinase CK-MB (CK-2) Troponin T Total Protein Albumin Prealbumin HDL Cholesterol Salicylates Acetaminophen Crossmatch 10/11/18 10/11/18 10/11/18 04:14 04:14 04:14 WBC RBC Hgb Hct MCV MCHC RDW Plt Count Lymph % (Auto) Hunt % (Auto) Hunt # Seg Neutrophils % Seg Neuts % (Manual) Lymphocytes % (Manual) Monocytes % (Manual) Seg Neutrophils # Seg Neutrophils # Man Lymphocytes # (Manual) Monocytes # (Manual) APTT Heparin Anti-Xa Level POC ABG pH POC ABG pCO2 POC ABG pO2 Sodium Potassium 5.6 H Chloride Carbon Dioxide 19 L BUN Creatinine 1.6 H Glucose 329 H POC Glucose 328 H Lactic Acid Calcium 7.3 L Phosphorus Total Bilirubin AST ALT Total Creatine Kinase CK-MB (CK-2) Troponin T 1.130 H* D Total Protein Albumin Prealbumin HDL Cholesterol Salicylates Acetaminophen Crossmatch 10/11/18 10/11/18 10/11/18 05:10 05:32 05:58 WBC RBC Hgb Hct MCV MCHC RDW Plt Count Lymph % (Auto) Hunt % (Auto) Hunt # Seg Neutrophils % Seg Neuts % (Manual) Lymphocytes % (Manual) Monocytes % (Manual) Seg Neutrophils # Seg Neutrophils # Man Lymphocytes # (Manual) Monocytes # (Manual) APTT Heparin Anti-Xa Level POC ABG pH 7.259 L POC ABG pCO2 45.6 H POC ABG pO2 Sodium Potassium Chloride 108.6 H Carbon Dioxide 20 L BUN Creatinine 1.8 H Glucose 269 H POC Glucose 273 H Lactic Acid Calcium 7.0 L Phosphorus Total Bilirubin AST ALT Total Creatine Kinase CK-MB (CK-2) Troponin T Total Protein Albumin Prealbumin HDL Cholesterol Salicylates Acetaminophen Crossmatch 10/11/18 10/11/18 10/11/18 05:58 06:39 07:00 WBC RBC Hgb Hct MCV MCHC RDW Plt Count Lymph % (Auto) Hunt % (Auto) Hunt # Seg Neutrophils % Seg Neuts % (Manual) Lymphocytes % (Manual) Monocytes % (Manual) Seg Neutrophils # Seg Neutrophils # Man Lymphocytes # (Manual) Monocytes # (Manual) APTT Heparin Anti-Xa Level POC ABG pH POC ABG pCO2 POC ABG pO2 Sodium Potassium Chloride Carbon Dioxide BUN Creatinine Glucose POC Glucose 247 H Lactic Acid 3.20 H* 3.30 H* Calcium Phosphorus Total Bilirubin AST ALT Total Creatine Kinase CK-MB (CK-2) Troponin T Total Protein Albumin Prealbumin HDL Cholesterol Salicylates Acetaminophen Crossmatch 10/11/18 10/11/18 10/11/18 07:00 07:30 07:36 WBC RBC Hgb Hct MCV MCHC RDW Plt Count Lymph % (Auto) Hunt % (Auto) Hunt # Seg Neutrophils % Seg Neuts % (Manual) Lymphocytes % (Manual) Monocytes % (Manual) Seg Neutrophils # Seg Neutrophils # Man Lymphocytes # (Manual) Monocytes # (Manual) APTT Heparin Anti-Xa Level POC ABG pH POC ABG pCO2 POC ABG pO2 Sodium 146 H Potassium Chloride 112.1 H Carbon Dioxide 21 L BUN Creatinine 1.6 H Glucose 218 H POC Glucose Lactic Acid 3.20 H* Calcium 7.0 L Phosphorus Total Bilirubin AST ALT Total Creatine Kinase CK-MB (CK-2) Troponin T 1.020 H* Total Protein Albumin Prealbumin HDL Cholesterol Salicylates Acetaminophen Crossmatch 10/11/18 10/11/18 10/11/18 07:43 08:29 08:29 WBC RBC Hgb 16.2 H Hct 49.9 H D MCV MCHC RDW Plt Count Lymph % (Auto) Hunt % (Auto) Hunt # Seg Neutrophils % Seg Neuts % (Manual) Lymphocytes % (Manual) Monocytes % (Manual) Seg Neutrophils # Seg Neutrophils # Man Lymphocytes # (Manual) Monocytes # (Manual) APTT Heparin Anti-Xa Level POC ABG pH POC ABG pCO2 POC ABG pO2 Sodium Potassium Chloride Carbon Dioxide BUN Creatinine Glucose POC Glucose 174 H Lactic Acid 3.90 H* Calcium Phosphorus Total Bilirubin AST ALT Total Creatine Kinase CK-MB (CK-2) Troponin T Total Protein Albumin Prealbumin HDL Cholesterol Salicylates Acetaminophen Crossmatch 10/11/18 10/11/18 10/11/18 08:29 08:42 11:05 WBC RBC Hgb Hct MCV MCHC RDW Plt Count Lymph % (Auto) Hunt % (Auto) Hunt # Seg Neutrophils % Seg Neuts % (Manual) Lymphocytes % (Manual) Monocytes % (Manual) Seg Neutrophils # Seg Neutrophils # Man Lymphocytes # (Manual) Monocytes # (Manual) APTT 24.1 L Heparin Anti-Xa Level POC ABG pH POC ABG pCO2 POC ABG pO2 Sodium 147 H Potassium Chloride 113.3 H Carbon Dioxide 21 L BUN Creatinine 1.7 H Glucose 119 H POC Glucose 164 H Lactic Acid Calcium 7.7 L Phosphorus Total Bilirubin AST ALT Total Creatine Kinase CK-MB (CK-2) Troponin T Total Protein Albumin Prealbumin HDL Cholesterol Salicylates Acetaminophen Crossmatch 10/11/18 10/11/18 10/11/18 11:05 11:06 12:30 WBC RBC Hgb Hct MCV MCHC RDW Plt Count Lymph % (Auto) Hunt % (Auto) Hunt # Seg Neutrophils % Seg Neuts % (Manual) Lymphocytes % (Manual) Monocytes % (Manual) Seg Neutrophils # Seg Neutrophils # Man Lymphocytes # (Manual) Monocytes # (Manual) APTT Heparin Anti-Xa Level POC ABG pH POC ABG pCO2 POC ABG pO2 Sodium 148 H Potassium Chloride 113.4 H Carbon Dioxide 21 L BUN Creatinine 1.6 H Glucose 119 H POC Glucose 116 H Lactic Acid 3.20 H* Calcium 7.5 L Phosphorus Total Bilirubin AST ALT Total Creatine Kinase CK-MB (CK-2) Troponin T Total Protein Albumin Prealbumin HDL Cholesterol Salicylates Acetaminophen Crossmatch 10/11/18 10/11/18 10/11/18 12:30 13:16 13:25 WBC RBC Hgb Hct MCV MCHC RDW Plt Count Lymph % (Auto) Hunt % (Auto) Hunt # Seg Neutrophils % Seg Neuts % (Manual) Lymphocytes % (Manual) Monocytes % (Manual) Seg Neutrophils # Seg Neutrophils # Man Lymphocytes # (Manual) Monocytes # (Manual) APTT Heparin Anti-Xa Level POC ABG pH 7.247 L POC ABG pCO2 48.4 H POC ABG pO2 Sodium Potassium Chloride Carbon Dioxide BUN Creatinine Glucose POC Glucose 112 H Lactic Acid 2.70 H* Calcium Phosphorus Total Bilirubin AST ALT Total Creatine Kinase CK-MB (CK-2) Troponin T Total Protein Albumin Prealbumin HDL Cholesterol Salicylates Acetaminophen Crossmatch 10/11/18 10/11/18 10/11/18 14:41 15:27 16:13 WBC RBC Hgb Hct MCV MCHC RDW Plt Count Lymph % (Auto) Hunt % (Auto) Hunt # Seg Neutrophils % Seg Neuts % (Manual) Lymphocytes % (Manual) Monocytes % (Manual) Seg Neutrophils # Seg Neutrophils # Man Lymphocytes # (Manual) Monocytes # (Manual) APTT Heparin Anti-Xa Level POC ABG pH POC ABG pCO2 POC ABG pO2 Sodium Potassium Chloride Carbon Dioxide BUN Creatinine Glucose POC Glucose 127 H 141 H 134 H Lactic Acid Calcium Phosphorus Total Bilirubin AST ALT Total Creatine Kinase CK-MB (CK-2) Troponin T Total Protein Albumin Prealbumin HDL Cholesterol Salicylates Acetaminophen Crossmatch 10/11/18 10/11/18 10/11/18 17:18 18:23 19:38 WBC RBC Hgb Hct MCV MCHC RDW Plt Count Lymph % (Auto) Hunt % (Auto) Hunt # Seg Neutrophils % Seg Neuts % (Manual) Lymphocytes % (Manual) Monocytes % (Manual) Seg Neutrophils # Seg Neutrophils # Man Lymphocytes # (Manual) Monocytes # (Manual) APTT Heparin Anti-Xa Level POC ABG pH POC ABG pCO2 POC ABG pO2 Sodium 148 H Potassium Chloride 112.7 H Carbon Dioxide BUN 23 H Creatinine Glucose 143 H POC Glucose 132 H 129 H Lactic Acid Calcium 7.9 L Phosphorus Total Bilirubin AST ALT Total Creatine Kinase CK-MB (CK-2) Troponin T Total Protein Albumin Prealbumin HDL Cholesterol Salicylates Acetaminophen Crossmatch 10/11/18 10/11/18 10/11/18 20:19 20:36 21:01 WBC RBC Hgb Hct MCV MCHC RDW Plt Count Lymph % (Auto) Hunt % (Auto) Hunt # Seg Neutrophils % Seg Neuts % (Manual) Lymphocytes % (Manual) Monocytes % (Manual) Seg Neutrophils # Seg Neutrophils # Man Lymphocytes # (Manual) Monocytes # (Manual) APTT Heparin Anti-Xa Level POC ABG pH 7.281 L POC ABG pCO2 POC ABG pO2 Sodium Potassium Chloride Carbon Dioxide BUN Creatinine Glucose POC Glucose 129 H 151 H Lactic Acid Calcium Phosphorus Total Bilirubin AST ALT Total Creatine Kinase CK-MB (CK-2) Troponin T Total Protein Albumin Prealbumin HDL Cholesterol Salicylates Acetaminophen Crossmatch 10/11/18 10/11/18 10/12/18 22:04 23:15 01:18 WBC RBC Hgb Hct MCV MCHC RDW Plt Count Lymph % (Auto) Hunt % (Auto) Hunt # Seg Neutrophils % Seg Neuts % (Manual) Lymphocytes % (Manual) Monocytes % (Manual) Seg Neutrophils # Seg Neutrophils # Man Lymphocytes # (Manual) Monocytes # (Manual) APTT Heparin Anti-Xa Level POC ABG pH POC ABG pCO2 POC ABG pO2 Sodium Potassium Chloride Carbon Dioxide BUN Creatinine Glucose POC Glucose 147 H 143 H 158 H Lactic Acid Calcium Phosphorus Total Bilirubin AST ALT Total Creatine Kinase CK-MB (CK-2) Troponin T Total Protein Albumin Prealbumin HDL Cholesterol Salicylates Acetaminophen Crossmatch 10/12/18 10/12/18 10/12/18 02:13 03:18 04:04 WBC RBC Hgb Hct MCV MCHC RDW Plt Count Lymph % (Auto) Hunt % (Auto) Hunt # Seg Neutrophils % Seg Neuts % (Manual) Lymphocytes % (Manual) Monocytes % (Manual) Seg Neutrophils # Seg Neutrophils # Man Lymphocytes # (Manual) Monocytes # (Manual) APTT Heparin Anti-Xa Level POC ABG pH POC ABG pCO2 POC ABG pO2 Sodium 147 H Potassium Chloride 111.1 H Carbon Dioxide BUN 30 H Creatinine 2.0 H Glucose 154 H POC Glucose 148 H 142 H Lactic Acid Calcium 8.1 L Phosphorus Total Bilirubin AST 269 H ALT 204 H Total Creatine Kinase 3647 H CK-MB (CK-2) 48.3 H Troponin T 2.230 H* D Total Protein 5.8 L Albumin 2.6 L Prealbumin HDL Cholesterol Salicylates Acetaminophen Crossmatch 10/12/18 10/12/18 10/12/18 04:04 04:08 04:19 WBC 24.4 H RBC Hgb Hct MCV MCHC RDW Plt Count Lymph % (Auto) Hunt % (Auto) Hunt # Seg Neutrophils % Seg Neuts % (Manual) 32.0 L Lymphocytes % (Manual) Monocytes % (Manual) 8.0 H Seg Neutrophils # Seg Neutrophils # Man 7.8 H Lymphocytes # (Manual) Monocytes # (Manual) 2.0 H APTT Heparin Anti-Xa Level POC ABG pH 7.317 L POC ABG pCO2 49.3 H POC ABG pO2 Sodium Potassium Chloride Carbon Dioxide BUN Creatinine Glucose POC Glucose 143 H Lactic Acid Calcium Phosphorus Total Bilirubin AST ALT Total Creatine Kinase CK-MB (CK-2) Troponin T Total Protein Albumin Prealbumin HDL Cholesterol Salicylates Acetaminophen Crossmatch 10/12/18 10/12/18 10/12/18 05:29 06:52 08:09 WBC RBC Hgb Hct MCV MCHC RDW Plt Count Lymph % (Auto) Hunt % (Auto) Hunt # Seg Neutrophils % Seg Neuts % (Manual) Lymphocytes % (Manual) Monocytes % (Manual) Seg Neutrophils # Seg Neutrophils # Man Lymphocytes # (Manual) Monocytes # (Manual) APTT Heparin Anti-Xa Level POC ABG pH 7.322 L POC ABG pCO2 46.5 H POC ABG pO2 Sodium Potassium Chloride Carbon Dioxide BUN Creatinine Glucose POC Glucose 196 H 226 H Lactic Acid Calcium Phosphorus Total Bilirubin AST ALT Total Creatine Kinase CK-MB (CK-2) Troponin T Total Protein Albumin Prealbumin HDL Cholesterol Salicylates Acetaminophen Crossmatch 10/12/18 10/12/18 10/12/18 08:38 10:03 15:50 WBC RBC Hgb Hct MCV MCHC RDW Plt Count Lymph % (Auto) Hunt % (Auto) Hunt # Seg Neutrophils % Seg Neuts % (Manual) Lymphocytes % (Manual) Monocytes % (Manual) Seg Neutrophils # Seg Neutrophils # Man Lymphocytes # (Manual) Monocytes # (Manual) APTT Heparin Anti-Xa Level POC ABG pH POC ABG pCO2 POC ABG pO2 Sodium Potassium Chloride Carbon Dioxide BUN Creatinine Glucose POC Glucose 138 H 148 H 221 H Lactic Acid Calcium Phosphorus Total Bilirubin AST ALT Total Creatine Kinase CK-MB (CK-2) Troponin T Total Protein Albumin Prealbumin HDL Cholesterol Salicylates Acetaminophen Crossmatch 10/12/18 10/12/18 10/12/18 18:39 20:56 21:34 WBC RBC Hgb Hct MCV MCHC RDW Plt Count Lymph % (Auto) Hunt % (Auto) Hunt # Seg Neutrophils % Seg Neuts % (Manual) Lymphocytes % (Manual) Monocytes % (Manual) Seg Neutrophils # Seg Neutrophils # Man Lymphocytes # (Manual) Monocytes # (Manual) APTT Heparin Anti-Xa Level POC ABG pH 7.336 L POC ABG pCO2 46.0 H POC ABG pO2 Sodium Potassium Chloride Carbon Dioxide BUN Creatinine Glucose POC Glucose 255 H 260 H Lactic Acid Calcium Phosphorus Total Bilirubin AST ALT Total Creatine Kinase CK-MB (CK-2) Troponin T Total Protein Albumin Prealbumin HDL Cholesterol Salicylates Acetaminophen Crossmatch 10/13/18 10/13/18 10/13/18 02:29 05:09 05:40 WBC 17.0 H RBC Hgb Hct MCV MCHC RDW Plt Count Lymph % (Auto) Hunt % (Auto) 9.2 H Hunt # 1.6 H Seg Neutrophils % 76.2 H Seg Neuts % (Manual) Lymphocytes % (Manual) Monocytes % (Manual) Seg Neutrophils # 12.9 H Seg Neutrophils # Man Lymphocytes # (Manual) Monocytes # (Manual) APTT Heparin Anti-Xa Level POC ABG pH POC ABG pCO2 POC ABG pO2 Sodium Potassium Chloride Carbon Dioxide BUN Creatinine Glucose POC Glucose 216 H 249 H Lactic Acid Calcium Phosphorus Total Bilirubin AST ALT Total Creatine Kinase CK-MB (CK-2) Troponin T Total Protein Albumin Prealbumin HDL Cholesterol Salicylates Acetaminophen Crossmatch 10/13/18 10/13/18 10/13/18 05:40 05:40 09:46 WBC RBC Hgb Hct MCV MCHC RDW Plt Count Lymph % (Auto) Hunt % (Auto) Hunt # Seg Neutrophils % Seg Neuts % (Manual) Lymphocytes % (Manual) Monocytes % (Manual) Seg Neutrophils # Seg Neutrophils # Man Lymphocytes # (Manual) Monocytes # (Manual) APTT Heparin Anti-Xa Level POC ABG pH POC ABG pCO2 POC ABG pO2 Sodium 146 H Potassium Chloride 109.8 H Carbon Dioxide BUN 35 H Creatinine Glucose 245 H POC Glucose 235 H Lactic Acid Calcium 7.9 L Phosphorus Total Bilirubin AST ALT Total Creatine Kinase CK-MB (CK-2) Troponin T 0.952 H* D Total Protein Albumin Prealbumin HDL Cholesterol Salicylates Acetaminophen Crossmatch 10/13/18 10/13/18 10/13/18 13:58 16:15 17:30 WBC RBC Hgb Hct MCV MCHC RDW Plt Count Lymph % (Auto) Hunt % (Auto) Hunt # Seg Neutrophils % Seg Neuts % (Manual) Lymphocytes % (Manual) Monocytes % (Manual) Seg Neutrophils # Seg Neutrophils # Man Lymphocytes # (Manual) Monocytes # (Manual) APTT Heparin Anti-Xa Level POC ABG pH POC ABG pCO2 51.2 H POC ABG pO2 Sodium Potassium Chloride Carbon Dioxide BUN Creatinine Glucose POC Glucose 139 H Lactic Acid Calcium Phosphorus Total Bilirubin AST ALT Total Creatine Kinase CK-MB (CK-2) Troponin T 0.816 H* Total Protein Albumin Prealbumin HDL Cholesterol Salicylates Acetaminophen Crossmatch 10/13/18 10/14/18 10/14/18 21:25 01:49 04:52 WBC RBC Hgb Hct MCV MCHC RDW Plt Count Lymph % (Auto) Hunt % (Auto) Hunt # Seg Neutrophils % Seg Neuts % (Manual) Lymphocytes % (Manual) Monocytes % (Manual) Seg Neutrophils # Seg Neutrophils # Man Lymphocytes # (Manual) Monocytes # (Manual) APTT Heparin Anti-Xa Level POC ABG pH POC ABG pCO2 56.0 H POC ABG pO2 Sodium Potassium Chloride Carbon Dioxide BUN Creatinine Glucose POC Glucose 205 H 166 H Lactic Acid Calcium Phosphorus Total Bilirubin AST ALT Total Creatine Kinase CK-MB (CK-2) Troponin T Total Protein Albumin Prealbumin HDL Cholesterol Salicylates Acetaminophen Crossmatch 10/14/18 10/14/18 10/14/18 05:32 09:45 09:45 WBC RBC Hgb 11.4 L Hct 34.5 L MCV MCHC RDW Plt Count 139 L Lymph % (Auto) Hunt % (Auto) Hunt # Seg Neutrophils % Seg Neuts % (Manual) Lymphocytes % (Manual) Monocytes % (Manual) Seg Neutrophils # Seg Neutrophils # Man Lymphocytes # (Manual) Monocytes # (Manual) APTT Heparin Anti-Xa Level POC ABG pH POC ABG pCO2 POC ABG pO2 Sodium 148 H Potassium Chloride 107.3 H Carbon Dioxide 34 H D BUN Creatinine 0.7 L D Glucose 191 H POC Glucose 164 H Lactic Acid Calcium 7.3 L Phosphorus Total Bilirubin AST 110 H ALT 91 H Total Creatine Kinase CK-MB (CK-2) Troponin T Total Protein 4.9 L Albumin 2.0 L Prealbumin HDL Cholesterol Salicylates Acetaminophen Crossmatch 10/14/18 10/14/18 10/14/18 10:54 12:20 18:30 WBC RBC Hgb Hct MCV MCHC RDW Plt Count Lymph % (Auto) Hunt % (Auto) Hunt # Seg Neutrophils % Seg Neuts % (Manual) Lymphocytes % (Manual) Monocytes % (Manual) Seg Neutrophils # Seg Neutrophils # Man Lymphocytes # (Manual) Monocytes # (Manual) APTT Heparin Anti-Xa Level POC ABG pH POC ABG pCO2 POC ABG pO2 Sodium Potassium Chloride Carbon Dioxide BUN Creatinine Glucose POC Glucose 173 H 158 H 108 H Lactic Acid Calcium Phosphorus Total Bilirubin AST ALT Total Creatine Kinase CK-MB (CK-2) Troponin T Total Protein Albumin Prealbumin HDL Cholesterol Salicylates Acetaminophen Crossmatch 10/14/18 10/15/18 10/15/18 21:54 02:12 04:19 WBC RBC Hgb Hct MCV MCHC RDW Plt Count Lymph % (Auto) Hunt % (Auto) Hunt # Seg Neutrophils % Seg Neuts % (Manual) Lymphocytes % (Manual) Monocytes % (Manual) Seg Neutrophils # Seg Neutrophils # Man Lymphocytes # (Manual) Monocytes # (Manual) APTT Heparin Anti-Xa Level POC ABG pH 7.491 H POC ABG pCO2 45.1 H POC ABG pO2 Sodium Potassium Chloride Carbon Dioxide BUN Creatinine Glucose POC Glucose 110 H 164 H Lactic Acid Calcium Phosphorus Total Bilirubin AST ALT Total Creatine Kinase CK-MB (CK-2) Troponin T Total Protein Albumin Prealbumin HDL Cholesterol Salicylates Acetaminophen Crossmatch 10/15/18 10/15/18 10/15/18 04:55 05:43 06:20 WBC RBC Hgb 11.7 L Hct 34.7 L MCV MCHC RDW Plt Count Lymph % (Auto) Hunt % (Auto) Hunt # Seg Neutrophils % Seg Neuts % (Manual) Lymphocytes % (Manual) Monocytes % (Manual) Seg Neutrophils # Seg Neutrophils # Man Lymphocytes # (Manual) Monocytes # (Manual) APTT Heparin Anti-Xa Level POC ABG pH POC ABG pCO2 47.3 H POC ABG pO2 78 L Sodium Potassium Chloride Carbon Dioxide BUN Creatinine Glucose POC Glucose 250 H Lactic Acid Calcium Phosphorus Total Bilirubin AST ALT Total Creatine Kinase CK-MB (CK-2) Troponin T Total Protein Albumin Prealbumin HDL Cholesterol Salicylates Acetaminophen Crossmatch 10/15/18 10/15/18 10/15/18 12:00 12:00 12:11 WBC RBC Hgb 11.5 L Hct 34.0 L MCV MCHC RDW Plt Count Lymph % (Auto) Hunt % (Auto) Hunt # Seg Neutrophils % Seg Neuts % (Manual) Lymphocytes % (Manual) Monocytes % (Manual) Seg Neutrophils # Seg Neutrophils # Man Lymphocytes # (Manual) Monocytes # (Manual) APTT Heparin Anti-Xa Level POC ABG pH POC ABG pCO2 POC ABG pO2 Sodium 147 H Potassium Chloride 108.5 H Carbon Dioxide BUN Creatinine 0.7 L Glucose 209 H POC Glucose 197 H Lactic Acid Calcium 7.3 L Phosphorus Total Bilirubin AST ALT Total Creatine Kinase CK-MB (CK-2) Troponin T Total Protein Albumin Prealbumin HDL Cholesterol Salicylates Acetaminophen Crossmatch 10/15/18 10/15/18 10/15/18 15:48 18:34 21:29 WBC RBC Hgb Hct MCV MCHC RDW Plt Count Lymph % (Auto) Hunt % (Auto) Hunt # Seg Neutrophils % Seg Neuts % (Manual) Lymphocytes % (Manual) Monocytes % (Manual) Seg Neutrophils # Seg Neutrophils # Man Lymphocytes # (Manual) Monocytes # (Manual) APTT Heparin Anti-Xa Level POC ABG pH POC ABG pCO2 POC ABG pO2 Sodium Potassium Chloride Carbon Dioxide BUN Creatinine Glucose POC Glucose 220 H 249 H 209 H Lactic Acid Calcium Phosphorus Total Bilirubin AST ALT Total Creatine Kinase CK-MB (CK-2) Troponin T Total Protein Albumin Prealbumin HDL Cholesterol Salicylates Acetaminophen Crossmatch 10/16/18 10/16/18 10/16/18 02:16 03:50 05:57 WBC RBC Hgb Hct MCV MCHC RDW Plt Count Lymph % (Auto) Hunt % (Auto) Hunt # Seg Neutrophils % Seg Neuts % (Manual) Lymphocytes % (Manual) Monocytes % (Manual) Seg Neutrophils # Seg Neutrophils # Man Lymphocytes # (Manual) Monocytes # (Manual) APTT Heparin Anti-Xa Level POC ABG pH POC ABG pCO2 55.8 H POC ABG pO2 Sodium Potassium Chloride Carbon Dioxide BUN Creatinine Glucose POC Glucose 110 H 209 H Lactic Acid Calcium Phosphorus Total Bilirubin AST ALT Total Creatine Kinase CK-MB (CK-2) Troponin T Total Protein Albumin Prealbumin HDL Cholesterol Salicylates Acetaminophen Crossmatch 10/16/18 10/16/18 10/16/18 10:51 12:51 15:01 WBC RBC Hgb Hct MCV MCHC RDW Plt Count Lymph % (Auto) Hunt % (Auto) Hunt # Seg Neutrophils % Seg Neuts % (Manual) Lymphocytes % (Manual) Monocytes % (Manual) Seg Neutrophils # Seg Neutrophils # Man Lymphocytes # (Manual) Monocytes # (Manual) APTT Heparin Anti-Xa Level POC ABG pH POC ABG pCO2 48.9 H POC ABG pO2 Sodium Potassium Chloride Carbon Dioxide BUN Creatinine Glucose POC Glucose 198 H 196 H Lactic Acid Calcium Phosphorus Total Bilirubin AST ALT Total Creatine Kinase CK-MB (CK-2) Troponin T Total Protein Albumin Prealbumin HDL Cholesterol Salicylates Acetaminophen Crossmatch 10/16/18 10/16/18 10/17/18 17:34 21:59 02:17 WBC RBC Hgb Hct MCV MCHC RDW Plt Count Lymph % (Auto) Hunt % (Auto) Hunt # Seg Neutrophils % Seg Neuts % (Manual) Lymphocytes % (Manual) Monocytes % (Manual) Seg Neutrophils # Seg Neutrophils # Man Lymphocytes # (Manual) Monocytes # (Manual) APTT Heparin Anti-Xa Level POC ABG pH POC ABG pCO2 POC ABG pO2 Sodium Potassium Chloride Carbon Dioxide BUN Creatinine Glucose POC Glucose 179 H 139 H 135 H Lactic Acid Calcium Phosphorus Total Bilirubin AST ALT Total Creatine Kinase CK-MB (CK-2) Troponin T Total Protein Albumin Prealbumin HDL Cholesterol Salicylates Acetaminophen Crossmatch 10/17/18 10/17/18 10/17/18 05:40 05:47 10:18 WBC RBC Hgb 11.3 L Hct 33.2 L MCV MCHC RDW Plt Count Lymph % (Auto) Hunt % (Auto) Hunt # Seg Neutrophils % Seg Neuts % (Manual) Lymphocytes % (Manual) Monocytes % (Manual) Seg Neutrophils # Seg Neutrophils # Man Lymphocytes # (Manual) Monocytes # (Manual) APTT Heparin Anti-Xa Level POC ABG pH POC ABG pCO2 POC ABG pO2 Sodium Potassium Chloride Carbon Dioxide BUN Creatinine Glucose POC Glucose 125 H 139 H Lactic Acid Calcium Phosphorus Total Bilirubin AST ALT Total Creatine Kinase CK-MB (CK-2) Troponin T Total Protein Albumin Prealbumin HDL Cholesterol Salicylates Acetaminophen Crossmatch 10/17/18 10/18/18 10/18/18 23:11 08:49 11:31 WBC RBC Hgb Hct MCV MCHC RDW Plt Count Lymph % (Auto) Hunt % (Auto) Hunt # Seg Neutrophils % Seg Neuts % (Manual) Lymphocytes % (Manual) Monocytes % (Manual) Seg Neutrophils # Seg Neutrophils # Man Lymphocytes # (Manual) Monocytes # (Manual) APTT Heparin Anti-Xa Level POC ABG pH POC ABG pCO2 POC ABG pO2 Sodium Potassium Chloride Carbon Dioxide BUN Creatinine Glucose POC Glucose 165 H 125 H 182 H Lactic Acid Calcium Phosphorus Total Bilirubin AST ALT Total Creatine Kinase CK-MB (CK-2) Troponin T Total Protein Albumin Prealbumin HDL Cholesterol Salicylates Acetaminophen Crossmatch 10/18/18 10/18/18 10/19/18 16:12 21:02 00:28 WBC RBC Hgb 11.4 L Hct 33.6 L MCV MCHC RDW Plt Count Lymph % (Auto) Hunt % (Auto) 14.0 H Hunt # 1.2 H Seg Neutrophils % Seg Neuts % (Manual) Lymphocytes % (Manual) Monocytes % (Manual) Seg Neutrophils # Seg Neutrophils # Man Lymphocytes # (Manual) Monocytes # (Manual) APTT Heparin Anti-Xa Level POC ABG pH POC ABG pCO2 POC ABG pO2 Sodium Potassium Chloride Carbon Dioxide BUN Creatinine Glucose POC Glucose 168 H 324 H Lactic Acid Calcium Phosphorus Total Bilirubin AST ALT Total Creatine Kinase CK-MB (CK-2) Troponin T Total Protein Albumin Prealbumin HDL Cholesterol Salicylates Acetaminophen Crossmatch 10/19/18 10/19/18 10/19/18 04:57 04:57 07:32 WBC RBC Hgb 11.7 L Hct 34.0 L MCV MCHC RDW Plt Count Lymph % (Auto) Hunt % (Auto) Hunt # Seg Neutrophils % Seg Neuts % (Manual) Lymphocytes % (Manual) Monocytes % (Manual) Seg Neutrophils # Seg Neutrophils # Man Lymphocytes # (Manual) Monocytes # (Manual) APTT Heparin Anti-Xa Level POC ABG pH POC ABG pCO2 POC ABG pO2 Sodium Potassium 3.5 L Chloride 108.6 H Carbon Dioxide BUN Creatinine 0.6 L Glucose POC Glucose 159 H Lactic Acid Calcium 7.9 L Phosphorus Total Bilirubin AST ALT Total Creatine Kinase CK-MB (CK-2) Troponin T Total Protein Albumin Prealbumin HDL Cholesterol Salicylates Acetaminophen Crossmatch 10/19/18 10/19/18 10/20/18 16:25 20:59 12:04 WBC RBC Hgb Hct MCV MCHC RDW Plt Count Lymph % (Auto) Hunt % (Auto) Hunt # Seg Neutrophils % Seg Neuts % (Manual) Lymphocytes % (Manual) Monocytes % (Manual) Seg Neutrophils # Seg Neutrophils # Man Lymphocytes # (Manual) Monocytes # (Manual) APTT Heparin Anti-Xa Level POC ABG pH POC ABG pCO2 POC ABG pO2 Sodium Potassium Chloride Carbon Dioxide BUN Creatinine Glucose POC Glucose 134 H 110 H 338 H Lactic Acid Calcium Phosphorus Total Bilirubin AST ALT Total Creatine Kinase CK-MB (CK-2) Troponin T Total Protein Albumin Prealbumin HDL Cholesterol Salicylates Acetaminophen Crossmatch 10/20/18 10/20/18 10/21/18 17:55 22:07 04:59 WBC RBC Hgb 11.6 L Hct 33.9 L MCV MCHC RDW Plt Count Lymph % (Auto) Hunt % (Auto) 9.7 H Hunt # 0.9 H Seg Neutrophils % 70.7 H Seg Neuts % (Manual) Lymphocytes % (Manual) Monocytes % (Manual) Seg Neutrophils # Seg Neutrophils # Man Lymphocytes # (Manual) Monocytes # (Manual) APTT Heparin Anti-Xa Level POC ABG pH POC ABG pCO2 POC ABG pO2 Sodium Potassium Chloride Carbon Dioxide BUN Creatinine Glucose POC Glucose 146 H 164 H Lactic Acid Calcium Phosphorus Total Bilirubin AST ALT Total Creatine Kinase CK-MB (CK-2) Troponin T Total Protein Albumin Prealbumin HDL Cholesterol Salicylates Acetaminophen Crossmatch 10/21/18 10/21/18 10/21/18 04:59 07:52 11:39 WBC RBC Hgb Hct MCV MCHC RDW Plt Count Lymph % (Auto) Hunt % (Auto) Hunt # Seg Neutrophils % Seg Neuts % (Manual) Lymphocytes % (Manual) Monocytes % (Manual) Seg Neutrophils # Seg Neutrophils # Man Lymphocytes # (Manual) Monocytes # (Manual) APTT Heparin Anti-Xa Level POC ABG pH POC ABG pCO2 POC ABG pO2 Sodium Potassium 3.5 L Chloride 107.1 H Carbon Dioxide BUN Creatinine 0.5 L Glucose 158 H POC Glucose 142 H 194 H Lactic Acid Calcium 7.5 L Phosphorus Total Bilirubin AST ALT Total Creatine Kinase CK-MB (CK-2) Troponin T Total Protein 5.6 L Albumin 2.0 L Prealbumin HDL Cholesterol Salicylates Acetaminophen Crossmatch 10/21/18 10/21/18 10/22/18 17:05 20:37 05:38 WBC RBC 3.48 L Hgb 10.8 L Hct 31.7 L MCV MCHC RDW Plt Count 458 H Lymph % (Auto) Hunt % (Auto) 10.5 H Hunt # Seg Neutrophils % Seg Neuts % (Manual) Lymphocytes % (Manual) Monocytes % (Manual) Seg Neutrophils # Seg Neutrophils # Man Lymphocytes # (Manual) Monocytes # (Manual) APTT Heparin Anti-Xa Level POC ABG pH POC ABG pCO2 POC ABG pO2 Sodium Potassium Chloride Carbon Dioxide BUN Creatinine Glucose POC Glucose 167 H 182 H Lactic Acid Calcium Phosphorus Total Bilirubin AST ALT Total Creatine Kinase CK-MB (CK-2) Troponin T Total Protein Albumin Prealbumin HDL Cholesterol Salicylates Acetaminophen Crossmatch 10/22/18 10/22/18 10/22/18 05:38 07:48 12:08 WBC RBC Hgb Hct MCV MCHC RDW Plt Count Lymph % (Auto) Hunt % (Auto) Hunt # Seg Neutrophils % Seg Neuts % (Manual) Lymphocytes % (Manual) Monocytes % (Manual) Seg Neutrophils # Seg Neutrophils # Man Lymphocytes # (Manual) Monocytes # (Manual) APTT Heparin Anti-Xa Level POC ABG pH POC ABG pCO2 POC ABG pO2 Sodium Potassium Chloride Carbon Dioxide BUN Creatinine 0.5 L Glucose 146 H POC Glucose 130 H 167 H Lactic Acid Calcium 7.8 L Phosphorus Total Bilirubin AST 41 H ALT Total Creatine Kinase CK-MB (CK-2) Troponin T Total Protein 5.5 L Albumin 2.1 L Prealbumin HDL Cholesterol Salicylates Acetaminophen Crossmatch 10/22/18 10/22/18 10/23/18 16:45 21:42 04:38 WBC RBC Hgb 11.7 L Hct 34.7 L MCV MCHC RDW Plt Count 523 H Lymph % (Auto) Hunt % (Auto) 8.7 H Hunt # Seg Neutrophils % 71.6 H Seg Neuts % (Manual) Lymphocytes % (Manual) Monocytes % (Manual) Seg Neutrophils # Seg Neutrophils # Man Lymphocytes # (Manual) Monocytes # (Manual) APTT Heparin Anti-Xa Level POC ABG pH POC ABG pCO2 POC ABG pO2 Sodium Potassium Chloride Carbon Dioxide BUN Creatinine Glucose POC Glucose 113 H 134 H Lactic Acid Calcium Phosphorus Total Bilirubin AST ALT Total Creatine Kinase CK-MB (CK-2) Troponin T Total Protein Albumin Prealbumin HDL Cholesterol Salicylates Acetaminophen Crossmatch 10/23/18 10/23/18 10/23/18 04:38 07:56 11:15 WBC RBC Hgb Hct MCV MCHC RDW Plt Count Lymph % (Auto) Hunt % (Auto) Hunt # Seg Neutrophils % Seg Neuts % (Manual) Lymphocytes % (Manual) Monocytes % (Manual) Seg Neutrophils # Seg Neutrophils # Man Lymphocytes # (Manual) Monocytes # (Manual) APTT Heparin Anti-Xa Level POC ABG pH POC ABG pCO2 POC ABG pO2 Sodium Potassium Chloride Carbon Dioxide BUN 7 L Creatinine 0.5 L Glucose 150 H POC Glucose 123 H 212 H Lactic Acid Calcium 8.0 L Phosphorus Total Bilirubin AST 55 H ALT Total Creatine Kinase CK-MB (CK-2) Troponin T Total Protein 6.2 L Albumin 2.3 L Prealbumin HDL Cholesterol Salicylates Acetaminophen Crossmatch 10/23/18 10/23/18 10/24/18 16:06 22:01 05:56 WBC 11.8 H RBC 3.64 L Hgb 11.2 L Hct 33.4 L MCV MCHC RDW Plt Count 564 H Lymph % (Auto) 11.3 L Hunt % (Auto) Hunt # Seg Neutrophils % 80.2 H Seg Neuts % (Manual) Lymphocytes % (Manual) Monocytes % (Manual) Seg Neutrophils # 9.4 H Seg Neutrophils # Man Lymphocytes # (Manual) Monocytes # (Manual) APTT Heparin Anti-Xa Level POC ABG pH POC ABG pCO2 POC ABG pO2 Sodium Potassium Chloride Carbon Dioxide BUN Creatinine Glucose POC Glucose 152 H 235 H Lactic Acid Calcium Phosphorus Total Bilirubin AST ALT Total Creatine Kinase CK-MB (CK-2) Troponin T Total Protein Albumin Prealbumin HDL Cholesterol Salicylates Acetaminophen Crossmatch 10/24/18 10/24/18 10/24/18 05:56 07:52 11:58 WBC RBC Hgb Hct MCV MCHC RDW Plt Count Lymph % (Auto) Hunt % (Auto) Hunt # Seg Neutrophils % Seg Neuts % (Manual) Lymphocytes % (Manual) Monocytes % (Manual) Seg Neutrophils # Seg Neutrophils # Man Lymphocytes # (Manual) Monocytes # (Manual) APTT Heparin Anti-Xa Level POC ABG pH POC ABG pCO2 POC ABG pO2 Sodium Potassium Chloride Carbon Dioxide BUN Creatinine 0.5 L Glucose 175 H POC Glucose 156 H 238 H Lactic Acid Calcium 8.0 L Phosphorus Total Bilirubin AST 44 H ALT Total Creatine Kinase CK-MB (CK-2) Troponin T Total Protein 6.2 L Albumin 2.4 L Prealbumin HDL Cholesterol Salicylates Acetaminophen Crossmatch 10/24/18 10/24/18 10/25/18 16:20 22:13 07:53 WBC RBC Hgb Hct MCV MCHC RDW Plt Count Lymph % (Auto) Hunt % (Auto) Hunt # Seg Neutrophils % Seg Neuts % (Manual) Lymphocytes % (Manual) Monocytes % (Manual) Seg Neutrophils # Seg Neutrophils # Man Lymphocytes # (Manual) Monocytes # (Manual) APTT Heparin Anti-Xa Level POC ABG pH POC ABG pCO2 POC ABG pO2 Sodium Potassium Chloride Carbon Dioxide BUN Creatinine Glucose POC Glucose 60 L 261 H 211 H Lactic Acid Calcium Phosphorus Total Bilirubin AST ALT Total Creatine Kinase CK-MB (CK-2) Troponin T Total Protein Albumin Prealbumin HDL Cholesterol Salicylates Acetaminophen Crossmatch 10/25/18 10/25/18 10/25/18 11:03 16:02 22:45 WBC RBC Hgb Hct MCV MCHC RDW Plt Count Lymph % (Auto) Hunt % (Auto) Hunt # Seg Neutrophils % Seg Neuts % (Manual) Lymphocytes % (Manual) Monocytes % (Manual) Seg Neutrophils # Seg Neutrophils # Man Lymphocytes # (Manual) Monocytes # (Manual) APTT Heparin Anti-Xa Level POC ABG pH POC ABG pCO2 POC ABG pO2 Sodium Potassium Chloride Carbon Dioxide BUN Creatinine Glucose POC Glucose 137 H 186 H 140 H Lactic Acid Calcium Phosphorus Total Bilirubin AST ALT Total Creatine Kinase CK-MB (CK-2) Troponin T Total Protein Albumin Prealbumin HDL Cholesterol Salicylates Acetaminophen Crossmatch 10/26/18 10/26/18 10/26/18 08:13 10:08 11:28 WBC RBC Hgb Hct MCV MCHC RDW Plt Count Lymph % (Auto) Hunt % (Auto) Hunt # Seg Neutrophils % Seg Neuts % (Manual) Lymphocytes % (Manual) Monocytes % (Manual) Seg Neutrophils # Seg Neutrophils # Man Lymphocytes # (Manual) Monocytes # (Manual) APTT Heparin Anti-Xa Level POC ABG pH POC ABG pCO2 POC ABG pO2 Sodium Potassium Chloride Carbon Dioxide BUN Creatinine Glucose POC Glucose 144 H 110 H 201 H Lactic Acid Calcium Phosphorus Total Bilirubin AST ALT Total Creatine Kinase CK-MB (CK-2) Troponin T Total Protein Albumin Prealbumin HDL Cholesterol Salicylates Acetaminophen Crossmatch 10/26/18 10/26/18 10/27/18 16:36 22:29 07:34 WBC RBC Hgb Hct MCV MCHC RDW Plt Count Lymph % (Auto) Hunt % (Auto) Hunt # Seg Neutrophils % Seg Neuts % (Manual) Lymphocytes % (Manual) Monocytes % (Manual) Seg Neutrophils # Seg Neutrophils # Man Lymphocytes # (Manual) Monocytes # (Manual) APTT Heparin Anti-Xa Level POC ABG pH POC ABG pCO2 POC ABG pO2 Sodium Potassium Chloride Carbon Dioxide BUN Creatinine Glucose POC Glucose 147 H 302 H 182 H Lactic Acid Calcium Phosphorus Total Bilirubin AST ALT Total Creatine Kinase CK-MB (CK-2) Troponin T Total Protein Albumin Prealbumin HDL Cholesterol Salicylates Acetaminophen Crossmatch 10/27/18 10/27/18 10/27/18 11:57 13:33 14:55 WBC RBC Hgb Hct MCV MCHC RDW Plt Count 550 H Lymph % (Auto) Hunt % (Auto) Hunt # Seg Neutrophils % Seg Neuts % (Manual) Lymphocytes % (Manual) Monocytes % (Manual) Seg Neutrophils # Seg Neutrophils # Man Lymphocytes # (Manual) Monocytes # (Manual) APTT Heparin Anti-Xa Level POC ABG pH POC ABG pCO2 POC ABG pO2 Sodium Potassium Chloride Carbon Dioxide BUN Creatinine Glucose POC Glucose 209 H Lactic Acid Calcium Phosphorus Total Bilirubin AST ALT Total Creatine Kinase CK-MB (CK-2) Troponin T Total Protein Albumin Prealbumin HDL Cholesterol Salicylates Acetaminophen Crossmatch See Detail 10/27/18 10/27/18 10/28/18 17:09 21:45 07:45 WBC RBC Hgb Hct MCV MCHC RDW Plt Count Lymph % (Auto) Hunt % (Auto) Hunt # Seg Neutrophils % Seg Neuts % (Manual) Lymphocytes % (Manual) Monocytes % (Manual) Seg Neutrophils # Seg Neutrophils # Man Lymphocytes # (Manual) Monocytes # (Manual) APTT Heparin Anti-Xa Level POC ABG pH POC ABG pCO2 POC ABG pO2 Sodium Potassium Chloride Carbon Dioxide BUN Creatinine Glucose POC Glucose 233 H 136 H 201 H Lactic Acid Calcium Phosphorus Total Bilirubin AST ALT Total Creatine Kinase CK-MB (CK-2) Troponin T Total Protein Albumin Prealbumin HDL Cholesterol Salicylates Acetaminophen Crossmatch 10/28/18 10/28/18 10/28/18 11:17 16:34 19:51 WBC RBC Hgb Hct MCV MCHC RDW Plt Count Lymph % (Auto) Hunt % (Auto) Hunt # Seg Neutrophils % Seg Neuts % (Manual) Lymphocytes % (Manual) Monocytes % (Manual) Seg Neutrophils # Seg Neutrophils # Man Lymphocytes # (Manual) Monocytes # (Manual) APTT Heparin Anti-Xa Level < 0.10 L POC ABG pH POC ABG pCO2 POC ABG pO2 Sodium Potassium Chloride Carbon Dioxide BUN Creatinine Glucose POC Glucose 116 H 168 H Lactic Acid Calcium Phosphorus Total Bilirubin AST ALT Total Creatine Kinase CK-MB (CK-2) Troponin T Total Protein Albumin Prealbumin HDL Cholesterol Salicylates Acetaminophen Crossmatch 10/28/18 10/29/18 10/29/18 21:52 07:11 07:11 WBC RBC Hgb Hct MCV MCHC RDW Plt Count 470 H Lymph % (Auto) Hunt % (Auto) Hunt # Seg Neutrophils % Seg Neuts % (Manual) Lymphocytes % (Manual) Monocytes % (Manual) Seg Neutrophils # Seg Neutrophils # Man Lymphocytes # (Manual) Monocytes # (Manual) APTT Heparin Anti-Xa Level 0.13 L POC ABG pH POC ABG pCO2 POC ABG pO2 Sodium Potassium Chloride Carbon Dioxide BUN Creatinine Glucose POC Glucose 159 H Lactic Acid Calcium Phosphorus Total Bilirubin AST ALT Total Creatine Kinase CK-MB (CK-2) Troponin T Total Protein Albumin Prealbumin HDL Cholesterol Salicylates Acetaminophen Crossmatch 10/29/18 10/29/1810/29/19 07:11 07:43 11:29 WBC RBC Hgb Hct MCV MCHC RDW Plt Count Lymph % (Auto) Hunt % (Auto) Hunt # Seg Neutrophils % Seg Neuts % (Manual) Lymphocytes % (Manual) Monocytes % (Manual) Seg Neutrophils # Seg Neutrophils # Man Lymphocytes # (Manual) Monocytes # (Manual) APTT Heparin Anti-Xa Level POC ABG pH POC ABG pCO2 POC ABG pO2 Sodium Potassium Chloride Carbon Dioxide BUN 7 L Creatinine 0.5 L Glucose 122 H POC Glucose 147 H 165 H Lactic Acid Calcium 8.2 L Phosphorus Total Bilirubin AST ALT Total Creatine Kinase CK-MB (CK-2) Troponin T Total Protein Albumin Prealbumin HDL Cholesterol Salicylates Acetaminophen Crossmatch 10/29/18 10/29/18 10/30/18 19:50 22:11 00:11 WBC RBC Hgb Hct MCV MCHC RDW Plt Count Lymph % (Auto) Hunt % (Auto) Hunt # Seg Neutrophils % Seg Neuts % (Manual) Lymphocytes % (Manual) Monocytes % (Manual) Seg Neutrophils # Seg Neutrophils # Man Lymphocytes # (Manual) Monocytes # (Manual) APTT Heparin Anti-Xa Level 0.25 L POC ABG pH POC ABG pCO2 POC ABG pO2 Sodium Potassium Chloride Carbon Dioxide BUN Creatinine Glucose POC Glucose 166 H 173 H Lactic Acid Calcium Phosphorus Total Bilirubin AST ALT Total Creatine Kinase CK-MB (CK-2) Troponin T Total Protein Albumin Prealbumin HDL Cholesterol Salicylates Acetaminophen Crossmatch 10/30/18 10/30/18 10/30/18 04:22 04:22 07:47 WBC 27.0 H RBC 3.16 L Hgb 10.0 L Hct 28.8 L D MCV MCHC 35 H RDW Plt Count Lymph % (Auto) Hunt % (Auto) Hunt # Seg Neutrophils % Seg Neuts % (Manual) Lymphocytes % (Manual) 1.5 L Monocytes % (Manual) Seg Neutrophils # Seg Neutrophils # Man 18.6 H Lymphocytes # (Manual) 0.4 L Monocytes # (Manual) APTT Heparin Anti-Xa Level POC ABG pH POC ABG pCO2 POC ABG pO2 Sodium Potassium Chloride Carbon Dioxide BUN Creatinine Glucose 224 H POC Glucose 168 H Lactic Acid Calcium 7.5 L Phosphorus Total Bilirubin AST ALT Total Creatine Kinase CK-MB (CK-2) Troponin T Total Protein Albumin Prealbumin HDL Cholesterol Salicylates Acetaminophen Crossmatch 10/30/18 10/30/18 10/30/18 07:55 11:20 16:41 WBC RBC Hgb Hct MCV MCHC RDW Plt Count Lymph % (Auto) Hunt % (Auto) Hunt # Seg Neutrophils % Seg Neuts % (Manual) Lymphocytes % (Manual) Monocytes % (Manual) Seg Neutrophils # Seg Neutrophils # Man Lymphocytes # (Manual) Monocytes # (Manual) APTT Heparin Anti-Xa Level < 0.10 L POC ABG pH POC ABG pCO2 POC ABG pO2 Sodium Potassium Chloride Carbon Dioxide BUN Creatinine Glucose POC Glucose 165 H 142 H Lactic Acid Calcium Phosphorus Total Bilirubin AST ALT Total Creatine Kinase CK-MB (CK-2) Troponin T Total Protein Albumin Prealbumin HDL Cholesterol Salicylates Acetaminophen Crossmatch 10/30/18 10/30/18 10/31/18 20:51 21:20 05:21 WBC RBC Hgb 9.0 L Hct 26.6 L MCV MCHC RDW Plt Count Lymph % (Auto) Hunt % (Auto) Hunt # Seg Neutrophils % Seg Neuts % (Manual) Lymphocytes % (Manual) Monocytes % (Manual) Seg Neutrophils # Seg Neutrophils # Man Lymphocytes # (Manual) Monocytes # (Manual) APTT Heparin Anti-Xa Level < 0.10 L POC ABG pH POC ABG pCO2 POC ABG pO2 Sodium Potassium Chloride Carbon Dioxide BUN Creatinine Glucose POC Glucose 136 H Lactic Acid Calcium Phosphorus Total Bilirubin AST ALT Total Creatine Kinase CK-MB (CK-2) Troponin T Total Protein Albumin Prealbumin HDL Cholesterol Salicylates Acetaminophen Crossmatch 10/31/18 10/31/18 10/31/18 08:07 10:19 12:12 WBC RBC Hgb Hct MCV MCHC RDW Plt Count Lymph % (Auto) Hunt % (Auto) Hunt # Seg Neutrophils % Seg Neuts % (Manual) Lymphocytes % (Manual) Monocytes % (Manual) Seg Neutrophils # Seg Neutrophils # Man Lymphocytes # (Manual) Monocytes # (Manual) APTT Heparin Anti-Xa Level POC ABG pH POC ABG pCO2 POC ABG pO2 Sodium Potassium Chloride Carbon Dioxide BUN Creatinine Glucose POC Glucose 155 H 194 H Lactic Acid Calcium Phosphorus Total Bilirubin AST ALT Total Creatine Kinase CK-MB (CK-2) Troponin T Total Protein Albumin Prealbumin HDL Cholesterol Salicylates Acetaminophen Crossmatch See Detail 10/31/18 10/31/18 10/31/18 16:07 16:56 21:14 WBC RBC Hgb Hct MCV MCHC RDW Plt Count Lymph % (Auto) Hunt % (Auto) Hunt # Seg Neutrophils % Seg Neuts % (Manual) Lymphocytes % (Manual) Monocytes % (Manual) Seg Neutrophils # Seg Neutrophils # Man Lymphocytes # (Manual) Monocytes # (Manual) APTT Heparin Anti-Xa Level 1.20 H POC ABG pH POC ABG pCO2 POC ABG pO2 Sodium Potassium Chloride Carbon Dioxide BUN Creatinine Glucose POC Glucose 354 H 234 H Lactic Acid Calcium Phosphorus Total Bilirubin AST ALT Total Creatine Kinase CK-MB (CK-2) Troponin T Total Protein Albumin Prealbumin HDL Cholesterol Salicylates Acetaminophen Crossmatch 11/01/18 11/01/18 11/01/18 00:52 05:52 05:52 WBC 12.5 H RBC 2.95 L Hgb 9.1 L Hct 27.4 L MCV MCHC RDW 15.3 H Plt Count Lymph % (Auto) Hunt % (Auto) Hunt # Seg Neutrophils % Seg Neuts % (Manual) Lymphocytes % (Manual) Monocytes % (Manual) Seg Neutrophils # Seg Neutrophils # Man Lymphocytes # (Manual) Monocytes # (Manual) APTT Heparin Anti-Xa Level 1.53 H POC ABG pH POC ABG pCO2 POC ABG pO2 Sodium Potassium Chloride Carbon Dioxide BUN Creatinine 0.5 L Glucose 169 H POC Glucose Lactic Acid Calcium 8.3 L Phosphorus Total Bilirubin AST ALT Total Creatine Kinase CK-MB (CK-2) Troponin T Total Protein 6.2 L Albumin 2.3 L Prealbumin HDL Cholesterol Salicylates Acetaminophen Crossmatch 11/01/18 11/01/18 11/01/18 08:17 10:57 11:38 WBC RBC Hgb Hct MCV MCHC RDW Plt Count Lymph % (Auto) Hunt % (Auto) Hunt # Seg Neutrophils % Seg Neuts % (Manual) Lymphocytes % (Manual) Monocytes % (Manual) Seg Neutrophils # Seg Neutrophils # Man Lymphocytes # (Manual) Monocytes # (Manual) APTT Heparin Anti-Xa Level 1.05 H POC ABG pH POC ABG pCO2 POC ABG pO2 Sodium Potassium Chloride Carbon Dioxide BUN Creatinine Glucose POC Glucose 158 H 133 H Lactic Acid Calcium Phosphorus Total Bilirubin AST ALT Total Creatine Kinase CK-MB (CK-2) Troponin T Total Protein Albumin Prealbumin HDL Cholesterol Salicylates Acetaminophen Crossmatch 11/01/18 11/01/18 11/02/18 17:08 21:23 04:56 WBC RBC 3.02 L Hgb 9.5 L Hct 28.0 L MCV MCHC RDW Plt Count Lymph % (Auto) Hunt % (Auto) Hunt # Seg Neutrophils % Seg Neuts % (Manual) Lymphocytes % (Manual) Monocytes % (Manual) Seg Neutrophils # Seg Neutrophils # Man Lymphocytes # (Manual) Monocytes # (Manual) APTT Heparin Anti-Xa Level POC ABG pH POC ABG pCO2 POC ABG pO2 Sodium Potassium Chloride Carbon Dioxide BUN Creatinine Glucose POC Glucose 156 H 213 H Lactic Acid Calcium Phosphorus Total Bilirubin AST ALT Total Creatine Kinase CK-MB (CK-2) Troponin T Total Protein Albumin Prealbumin HDL Cholesterol Salicylates Acetaminophen Crossmatch 11/02/18 11/02/18 11/02/18 04:56 08:38 11:23 WBC RBC Hgb Hct MCV MCHC RDW Plt Count Lymph % (Auto) Hunt % (Auto) Hunt # Seg Neutrophils % Seg Neuts % (Manual) Lymphocytes % (Manual) Monocytes % (Manual) Seg Neutrophils # Seg Neutrophils # Man Lymphocytes # (Manual) Monocytes # (Manual) APTT Heparin Anti-Xa Level POC ABG pH POC ABG pCO2 POC ABG pO2 Sodium Potassium Chloride Carbon Dioxide BUN Creatinine 0.5 L Glucose 141 H POC Glucose 173 H 272 H Lactic Acid Calcium 8.2 L Phosphorus Total Bilirubin AST 43 H ALT Total Creatine Kinase CK-MB (CK-2) Troponin T Total Protein 6.1 L Albumin 2.2 L Prealbumin HDL Cholesterol Salicylates Acetaminophen Crossmatch 11/02/18 11/03/18 11/03/18 22:16 04:38 04:38 WBC 11.6 H RBC 3.20 L Hgb 9.8 L Hct 29.2 L MCV MCHC RDW Plt Count Lymph % (Auto) Hunt % (Auto) Hunt # Seg Neutrophils % Seg Neuts % (Manual) Lymphocytes % (Manual) Monocytes % (Manual) Seg Neutrophils # Seg Neutrophils # Man Lymphocytes # (Manual) Monocytes # (Manual) APTT Heparin Anti-Xa Level POC ABG pH POC ABG pCO2 POC ABG pO2 Sodium 135 L Potassium Chloride Carbon Dioxide BUN Creatinine 0.5 L Glucose 160 H POC Glucose 182 H Lactic Acid Calcium Phosphorus Total Bilirubin AST 46 H ALT Total Creatine Kinase CK-MB (CK-2) Troponin T Total Protein Albumin 2.3 L Prealbumin HDL Cholesterol Salicylates Acetaminophen Crossmatch 11/03/18 11/03/18 11/03/18 07:52 10:59 18:10 WBC RBC Hgb Hct MCV MCHC RDW Plt Count Lymph % (Auto) Hunt % (Auto) Hunt # Seg Neutrophils % Seg Neuts % (Manual) Lymphocytes % (Manual) Monocytes % (Manual) Seg Neutrophils # Seg Neutrophils # Man Lymphocytes # (Manual) Monocytes # (Manual) APTT Heparin Anti-Xa Level POC ABG pH POC ABG pCO2 POC ABG pO2 Sodium Potassium Chloride Carbon Dioxide BUN Creatinine Glucose POC Glucose 180 H 159 H 169 H Lactic Acid Calcium Phosphorus Total Bilirubin AST ALT Total Creatine Kinase CK-MB (CK-2) Troponin T Total Protein Albumin Prealbumin HDL Cholesterol Salicylates Acetaminophen Crossmatch 11/04/18 11/04/18 11/04/18 07:46 11:42 15:45 WBC 11.5 H RBC 3.41 L Hgb 10.4 L Hct 30.8 L MCV MCHC RDW Plt Count Lymph % (Auto) Hunt % (Auto) Hunt # Seg Neutrophils % Seg Neuts % (Manual) Lymphocytes % (Manual) Monocytes % (Manual) Seg Neutrophils # Seg Neutrophils # Man Lymphocytes # (Manual) Monocytes # (Manual) APTT Heparin Anti-Xa Level POC ABG pH POC ABG pCO2 POC ABG pO2 Sodium Potassium Chloride Carbon Dioxide BUN Creatinine Glucose POC Glucose 160 H 149 H Lactic Acid Calcium Phosphorus Total Bilirubin AST ALT Total Creatine Kinase CK-MB (CK-2) Troponin T Total Protein Albumin Prealbumin HDL Cholesterol Salicylates Acetaminophen Crossmatch 11/04/18 11/04/18 11/04/18 15:45 15:45 16:41 WBC RBC Hgb Hct MCV MCHC RDW Plt Count Lymph % (Auto) Hunt % (Auto) Hunt # Seg Neutrophils % Seg Neuts % (Manual) Lymphocytes % (Manual) Monocytes % (Manual) Seg Neutrophils # Seg Neutrophils # Man Lymphocytes # (Manual) Monocytes # (Manual) APTT Heparin Anti-Xa Level POC ABG pH POC ABG pCO2 POC ABG pO2 Sodium 133 L Potassium Chloride 95.6 L Carbon Dioxide BUN Creatinine 0.5 L Glucose 163 H POC Glucose 157 H Lactic Acid Calcium Phosphorus Total Bilirubin AST ALT Total Creatine Kinase CK-MB (CK-2) Troponin T Total Protein Albumin 2.6 L Prealbumin 0.073 L HDL Cholesterol Salicylates Acetaminophen Crossmatch 11/04/18 11/05/18 11/05/18 21:59 08:51 12:13 WBC RBC Hgb Hct MCV MCHC RDW Plt Count Lymph % (Auto) Hunt % (Auto) Hunt # Seg Neutrophils % Seg Neuts % (Manual) Lymphocytes % (Manual) Monocytes % (Manual) Seg Neutrophils # Seg Neutrophils # Man Lymphocytes # (Manual) Monocytes # (Manual) APTT Heparin Anti-Xa Level POC ABG pH POC ABG pCO2 POC ABG pO2 Sodium Potassium Chloride Carbon Dioxide BUN Creatinine Glucose POC Glucose 195 H 187 H 149 H Lactic Acid Calcium Phosphorus Total Bilirubin AST ALT Total Creatine Kinase CK-MB (CK-2) Troponin T Total Protein Albumin Prealbumin HDL Cholesterol Salicylates Acetaminophen Crossmatch 11/05/18 17:15 WBC RBC Hgb Hct MCV MCHC RDW Plt Count Lymph % (Auto) Hunt % (Auto) Hunt # Seg Neutrophils % Seg Neuts % (Manual) Lymphocytes % (Manual) Monocytes % (Manual) Seg Neutrophils # Seg Neutrophils # Man Lymphocytes # (Manual) Monocytes # (Manual) APTT Heparin Anti-Xa Level POC ABG pH POC ABG pCO2 POC ABG pO2 Sodium Potassium Chloride Carbon Dioxide BUN Creatinine Glucose POC Glucose 281 H Lactic Acid Calcium Phosphorus Total Bilirubin AST ALT Total Creatine Kinase CK-MB (CK-2) Troponin T Total Protein Albumin Prealbumin HDL Cholesterol Salicylates Acetaminophen Crossmatch Allied health notes reviewed: nursing
[2018-11-06 07:47] LABS: Hematocrit 31.8 % (35.5-45.6); Hemoglobin 11.2 gm/dl (11.8-15.2); Mean Corpuscular HGB Conc 35 % (32-34); Mean Corpuscular Volume 91 fl (84-94); Platelet Count 399 K/mm3 (140-440); Red Blood Count 3.48 M/mm3 (3.65-5.03)
[2018-11-06] MEDS: XANAX PO PRN (08:01)
[2018-11-06 08:08] LABS: BUN/Creatinine Ratio 30; Blood Urea Nitrogen 15 mg/dL (9-20); Calcium 8.5 mg/dL (8.4-10.2); Hemolysis Index 6
[2018-11-06] MEDS: DUONEB *Not for PRN Use IH SCH ×3 (08:38→21:31)
--- NOTE | 2018-11-06 08:53 | Progress Note ---
Assessment and Plan Patient would benefit from acute rehabilitation for reconditioning. Additionally, the patient would likely need nutritional supplements for nutritional support and to aid in wound healing. Subjective Date of service: 11/06/18 Principal diagnosis: Ac hypercapnic hypoxemic Resp failure; Drug OD; AE-COPD; NINOSKA; Seizures Interval history: Patient is doing well from a vascular standpoint. He is deconditioned and requires physical therapy and nutritional support. Objective - Constitutional Vitals: Vital Signs - 12hr 11/05/18 11/05/18 11/05/18 21:13 21:23 22:50 Temperature 98.0 F Pulse Rate 83 84 Pulse Rate [ Anterior Bilateral Throughout] Pulse Rate [ Throughout] Respiratory 20 20 Rate Respiratory Rate [Anterior Bilateral Throughout] Respiratory Rate [Left Leg] Respiratory Rate [Right Arm ] Respiratory Rate [ Throughout] Blood Pressure 108/68 103/58 O2 Sat by Pulse 95 Oximetry 11/06/18 11/06/18 11/06/18 00:20 04:10 04:20 Temperature Pulse Rate 84 84 84 Pulse Rate [ Anterior Bilateral Throughout] Pulse Rate [ Throughout] Respiratory Rate Respiratory Rate [Anterior Bilateral Throughout] Respiratory 18 Rate [Left Leg] Respiratory 18 Rate [Right Arm ] Respiratory Rate [ Throughout] Blood Pressure O2 Sat by Pulse Oximetry 11/06/18 11/06/18 11/06/18 04:26 07:31 08:39 Temperature 97.5 F L Pulse Rate 84 Pulse Rate [ 74 Anterior Bilateral Throughout] Pulse Rate [ 79 Throughout] Respiratory 20 18 Rate Respiratory 16 Rate [Anterior Bilateral Throughout] Respiratory Rate [Left Leg] Respiratory Rate [Right Arm ] Respiratory 18 Rate [ Throughout] Blood Pressure 97/57 O2 Sat by Pulse 91 Oximetry 11/06/18 08:42 Temperature Pulse Rate Pulse Rate [ Anterior Bilateral Throughout] Pulse Rate [ Throughout] Respiratory Rate Respiratory Rate [Anterior Bilateral Throughout] Respiratory Rate [Left Leg] Respiratory Rate [Right Arm ] Respiratory Rate [ Throughout] Blood Pressure O2 Sat by Pulse 96 Oximetry General appearance: Present: no acute distress - EENT Eyes: EOM intact ENT: hearing intact - Neck Neck: supple, normal ROM - Respiratory Respiratory effort: normal Extremities: abnormal - Gastrointestinal General gastrointestinal: Present: deferred Rectal Exam: deferred - Genitourinary Male genitourinary: deferred - Psychiatric Psychiatric: cooperative - Labs CBC & Chem 7: 11/06/18 07:00 11/06/18 07:00 Labs: Abnormal lab results 11/05/18 11/05/18 11/05/18 Range/Units 12:13 17:15 20:37 RBC (3.65-5.03) M/mm3 Hgb (11.8-15.2) gm/dl Hct (35.5-45.6) % MCHC (32-34) % Sodium (137-145) mmol/L Chloride (98-107) mmol/L Creatinine (0.8-1.5) mg/dL Glucose (75-100) mg/dL POC Glucose 149 H 281 H 203 H (70-105) 11/06/18 11/06/18 11/06/18 Range/Units 07:00 07:00 07:31 RBC 3.48 L (3.65-5.03) M/mm3 Hgb 11.2 L (11.8-15.2) gm/dl Hct 31.8 L (35.5-45.6) % MCHC 35 H (32-34) % Sodium 135 L (137-145) mmol/L Chloride 97.3 L (98-107) mmol/L Creatinine 0.5 L (0.8-1.5) mg/dL Glucose 163 H (75-100) mg/dL POC Glucose 215 H (70-105) Medications & Allergies - Medications Allergies/Adverse Reactions: Allergies No Known Allergies Allergy (Verified 10/31/14 11:20) Home Medications: Home Medications Medication Instructions Recorded Confirmed Last Taken Type Gabapentin [Neurontin] 90 mg PO Q8HR 04/22/15 11/01/18 04/21/15 History ALPRAZolam [Xanax TAB] 1 mg PO TID PRN #30 tablet 03/28/16 11/01/18 Unknown Rx Albuterol Sulfate [Ventolin HFA] 2 puff IH Q4H PRN #1 hfa.aer.[id number] 03/28/16 11/01/18 Unknown Rx Ciprofloxacin HCl [Ciprofloxacin 500 mg PO Q12HR #30 tab 03/28/16 11/01/18 Unknown Rx TAB] Citalopram [celeXA] 10 mg PO QDAY #30 tablet 03/28/16 11/01/18 Unknown Rx Nicotine [Habitrol] 14 mg TD QDAY #30 patch 10/17/16 05/23/19 Unknown Rx Sitagliptin Phos/Metformin HCl 1 tab PO QDAY #30 tbmp.24hr 03/28/16 11/01/18 Unknown Rx [Janumet XR 100-1,000 mg] oxyCODONE /ACETAMINOPHEN [Percocet 1 tab PO Q6H PRN #60 tablet 03/28/16 11/01/18 Unknown Rx 5/325 mg] Active Medications: Generic Name Dose Route Start Last Admin Trade Name Freq PRN Reason Stop Dose Admin Acetaminophen 650 mg 10/11/18 04:04 10/21/18 22:21 Tylenol PO 650 mg Q4H PRN Administration Pain MILD(1-3)/Fever >100.5/HOLLINS Albuterol 2.5 mg 10/19/18 00:54 Proventil IH Q4HRT PRN Shortness Of Breath Albuterol/Ipratropium 1 ampul 10/19/18 08:00 11/06/18 08:38 Duoneb *Not For Prn Use* IH 1 ampul TIDRT ISAAC Administration Alprazolam 1 mg 10/20/18 13:06 11/06/18 08:01 Xanax PO 1 mg TID PRN Administration Anxiety Apixaban 10 mg 11/01/18 16:00 11/05/18 22:51 Eliquis PO 11/08/18 10:01 10 mg Q12HR ISAAC Administration Protocol Apixaban 5 mg 11/08/18 22:00 Eliquis PO Q12HR ISAAC Protocol Aspirin 81 mg 11/01/18 16:00 11/05/18 09:55 Halfprin Ec PO 81 mg QDAY ISAAC Administration Buprenorphine HCl 2 each 11/05/18 10:00 11/05/18 09:56 Suboxone 2 Mg-0.5 Mg SL 2 each QDAY ISAAC Administration Citalopram Hydrobromide 20 mg 11/05/18 10:00 11/05/18 09:55 Celexa PO 20 mg QDAY ISAAC Administration Dextrose 0 ml 10/11/18 03:57 10/11/18 10:18 D50w (25gm) Syringe IV 10 ml PRN PRN Administration Hypoglycemia Docusate Sodium 100 mg 11/04/18 22:00 11/05/18 22:50 Colace PO Not Given BID ISAAC Famotidine 20 mg 10/15/18 10:00 11/05/18 22:51 Pepcid PO 20 mg BID ISAAC Administration Insulin Human Regular 0 units 10/17/18 11:30 11/05/18 22:50 Humulin R SUB-Q 4 units ACHS ISAAC Administration Protocol Metoprolol Tartrate 25 mg 10/18/18 22:00 11/05/18 22:50 Lopressor PO Not Given BID ISAAC Metoprolol Tartrate 2.5 mg 10/18/18 18:51 10/18/18 22:19 Lopressor IV 2.5 mg Q6H PRN Administration Tachyarrhythmias Naloxone HCl 0.1 mg 10/29/18 16:03 Narcan 0.4 Mg/1 Ml IV Q2MIN PRN Res Rate </= 8 or 02 SAT < 92% Ondansetron HCl 4 mg 10/11/18 04:04 11/01/18 22:12 Zofran IV 4 mg Q8H PRN Administration Nausea And Vomiting Oxycodone/Acetaminophen 1 tab 10/18/18 13:45 11/05/18 20:23 Percocet 5/325 PO 1 tab Q6H PRN Administration Pain, Moderate (4-6)
[2018-11-06] MEDS: HumuLIN R SUB-Q SCH ×4 (08:58→22:44)
[2018-11-06] MEDS: ELIQUIS PO SCH ×2 (09:08→22:45)
[2018-11-06] MEDS: HALFPRIN EC PO SCH (09:08)
[2018-11-06] MEDS: celeXA PO SCH (09:08)
[2018-11-06] MEDS: LOPRESSOR PO SCH ×2 (09:08→22:46)
[2018-11-06] MEDS: COLACE PO SCH ×2 (09:08→22:44)
[2018-11-06] MEDS: PEPCID PO SCH ×2 (09:08→22:44)
--- NOTE | 2018-11-06 10:59 | Progress Note ---
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 followed by revascularization right leg on 10/31/18: Vascular following, input noted, started Eliquis -Acute/subacute right CVA, Initial CT head, no acute finding, 10/13/18 found to have left-sided weakness, MRI brain showed numerous acute/subacute multilobar infarcts involving the cerebrum and cerebellum including Hemorrhagic transformation of the right frontal and biparietal lobes, was Not a candidate for tPA, monitor off aspirin per teleneurology, QUIQUE ; no thrombus or shunt, S peech recommended pureed diet -Severe sepsis with shock; present on admission Probably due to LLL aspiration pneumonia, completed total 7 days of antibiotics, off vasopressors -Paroxysmal atrial fibrillation. on Eliquis Cardiology is following -LLL pneumonia: completed treatment -Acute respiratory failure with hypoxia and hypercapnia: Requiring intubation, s/p extubation, treat with nebs and supplemental O2 as needed -DKA, resolved: cont SSI for now, diabetic diet -Acute toxic/metabolic encephalopathy, improved -Seizure disorder; seizure precautions, no new episodes of seizure, Ativan when necessary, neurology did not recommend antiepileptic medications -Elevated troponin/NSTEMI type 2, Echocardiogram for further evaluation - Ef 25- 30%, Cardiology consulted, medical Mx for now, -Acute systolic CHF, Ef 25-30%, anti-failure medications, Cardiology is fol lowing -ARF. Etiology secondary to ATN and vasomotor nephropathy, poa, resolved -Hyperkalemia, resolved -Abnormal LFT, Probably due to sepsis, resolving and chronic hepatitis C virus infection, Abdominal US showed no sign of cirrhosis: monitor cmp -Anemia, appears acute on chronic AOCD: monitor closely on iv heparin drip -Severe protein calorie malnutrition, bmi 14.8; nutrition supplements, Dietitian consulted -DVT prophylaxis with Eliquis -GI prophylaxis with famotidine -Tobacco abuse. Patient with a long smoking history of one pack per day or more since age 9. Patient was counseled on smoking cessation. -Disposition: continue inpatient care. Vascular procedure on right leg 10/31/18 and now the right foot is warm. Possible rehab vs Subacute rehab placement==>Physical therapy recommended Subacute Rehab but re-evaluation pending. transfer out of ICU on 11/01/18 to IM, now transferred out IMCU 11/03/18 refusing labwork, monitor cbc and bmp closely, counseling done History Interval history: Patient is a 58 yo man with a history of COPD, DM, hypertension, asthma, peripheral neuropathy, chronic hepatitis C virus, panic attack. anxiety disorder, polysubstance abuse including alcohol, cocaine and heroin who presented to [facility] ED on 10/11/18 with AMS. He was diagnosis with septic shock due to pneumonia, placed on abx and vasopressors. He was also diagnosis with DKA/respiratory failure/Status epilepticus/ARF. Patient s/p left BKA, right open thrombectomy and aortic stenting and bilateral common iliac artery stenting but right EIA occluded requiring another open thrombectomy and stenting of the right iliac system. No new issues overnight. Hospitalist Physical - Constitutional Vitals: Temp Pulse Resp BP Pulse Ox 97.5 F L 74 16 97/57 96 11/06/18 04:26 11/06/18 08:39 11/06/18 08:39 11/06/18 04:26 11/06/18 08:42 General appearance: Present: no acute distress - EENT Eyes: Present: PERRL, EOM intact ENT: hearing intact, clear oral mucosa, dentition normal - Neck Neck: Present: supple, normal ROM - Respiratory Respiratory effort: normal Respiratory: bilateral: CTA - Cardiovascular Rhythm: regular Heart Sounds: Present: S1 & S2. Absent: gallop, rub - Extremities Extremities: no ischemia, No edema, Full ROM Extremity abnormal: other (L BKA) - Abdominal General gastrointestinal: soft, non-tender, non-distended, normal bowel sounds - Integumentary Integumentary: Present: clear, warm, dry - Neurologic Neurologic: CNII-XII intact, moves all extremities Results - Labs CBC & Chem 7: 11/06/18 07:00 11/06/18 07:00 Labs: Laboratory Last Values WBC 10.0 K/mm3 (4.5-11.0) 11/06/18 07:00 RBC 3.48 M/mm3 (3.65-5.03) L 11/06/18 07:00 Hgb 11.2 gm/dl (11.8-15.2) L 11/06/18 07:00 Hct 31.8 % (35.5-45.6) L 11/06/18 07:00 MCV 91 fl (84-94) 11/06/18 07:00 MCH 32 pg (28-32) 11/06/18 07:00 MCHC 35 % (32-34) H 11/06/18 07:00 RDW 15.0 % (13.2-15.2) 11/06/18 07:00 Plt Count 399 K/mm3 (140-440) 11/06/18 07:00 Lymph % (Auto) 11.3 % (13.4-35.0) L 10/24/18 05:56 Hood % (Auto) 7.1 % (0.0-7.3) 10/24/18 05:56 Eos % (Auto) 1.0 % (0.0-4.3) 10/24/18 05:56 Baso % (Auto) 0.4 % (0.0-1.8) 10/24/18 05:56 Lymph # 1.3 K/mm3 (1.2-5.4) 10/24/18 05:56 Hood # 0.8 K/mm3 (0.0-0.8) 10/24/18 05:56 Eos # 0.1 K/mm3 (0.0-0.4) 10/24/18 05:56 Baso # 0.0 K/mm3 (0.0-0.1) 10/24/18 05:56 Add Manual Diff Complete 10/30/18 04:22 Total Counted 200 10/30/18 04:22 Seg Neutrophils % [employer] 10/30/18 04:22 Seg Neuts % (Manual) 69.0 % (40.0-70.0) 10/30/18 04:22 26.0 % 10/30/18 04:22 1.5 % (13.4-35.0) L 10/30/18 04:22 Reactive Lymphs % (Man) 0 % 10/30/18 04:22 2.0 % (0.0-7.3) 10/30/18 04:22 0 % (0.0-4.3) 10/30/18 04:22 0 % (0.0-1.8) 10/30/18 04:22 1.0 % 10/30/18 04:22 0.5 % 10/30/18 04:22 0 % 10/30/18 04:22 0 % 10/30/18 04:22 Nucleated RBC % Not Reportable 10/30/18 04:22 Seg Neutrophils # 9.4 K/mm3 (1.8-7.7) H 10/24/18 05:56 Seg Neutrophils # Man 18.6 K/mm3 (1.8-7.7) H 10/30/18 04:22 Band Neutrophils # 7.0 K/mm3 10/30/18 04:22 0.4 K/mm3 (1.2-5.4) L 10/30/18 04:22 Abs React Lymphs (Man) 0.0 K/mm3 10/30/18 04:22 0.5 K/mm3 (0.0-0.8) 10/30/18 04:22 0.0 K/mm3 (0.0-0.4) 10/30/18 04:22 0.0 K/mm3 (0.0-0.1) 10/30/18 04:22 0.3 K/mm3 10/30/18 04:22 0.1 K/mm3 10/30/18 04:22 0.0 K/mm3 10/30/18 04:22 Blast Cells # 0.0 K/mm3 10/30/18 04:22 Pathologist Review 10/11/18 00:16 WBC Morphology Not Reportable 10/30/18 04:22 WBC Morphology TNR 10/30/18 04:22 Hypersegmented Neuts Not Reportable 10/30/18 04:22 Hyposegmented Neuts Not Reportable 10/30/18 04:22 Hypogranular Neuts Not Reportable 10/30/18 04:22 Not Reportable 10/30/18 04:22 Not Reportable 10/30/18 04:22 Not Reportable 10/30/18 04:22 Not Reportable 10/30/18 04:22 Not Reportable 10/30/18 04:22 Not Reportable 10/30/18 04:22 Consistent w auto 10/30/18 04:22 Not Reportable 10/30/18 04:22 Plt Clumps, EDTA Not Reportable 10/30/18 04:22 Not Reportable 10/30/18 04:22 Not Reportable 10/30/18 04:22 Not Reportable 10/30/18 04:22 Plt Morphology Comment Not Reportable 10/30/18 04:22 RBC Morphology Not Reportable 10/30/18 04:22 Dimorphic RBCs Not Reportable 10/30/18 04:22 Not Reportable 10/30/18 04:22 Not Reportable 10/30/18 04:22 Not Reportable 10/30/18 04:22 Not Reportable 10/30/18 04:22 Not Reportable 10/30/18 04:22 Not Reportable 10/30/18 04:22 Not Reportable 10/30/18 04:22 Not Reportable 10/30/18 04:22 Not Reportable 10/30/18 04:22 Not Reportable 10/30/18 04:22 Not Reportable 10/30/18 04:22 Not Reportable 10/30/18 04:22 Not Reportable 10/30/18 04:22 Not Reportable 10/30/18 04:22 Not Reportable 10/30/18 04:22 Not Reportable 10/30/18 04:22 Not Reportable 10/30/18 04:22 Not Reportable 10/30/18 04:22 Not Reportable 10/30/18 04:22 Acanthocytes (Spur) Not Reportable 10/30/18 04:22 Rouleaux Not Reportable 10/30/18 04:22 Not Reportable 10/30/18 04:22 Not Reportable 10/30/18 04:22 Not Reportable 10/30/18 04:22 Not Reportable 10/30/18 04:22 Hem Pathologist Commnt No 10/30/18 04:22 PT 13.9 Sec. (12.2-14.9) 10/29/18 07:11 INR 1.01 (0.87-1.13) 10/29/18 07:11 APTT 30.3 Sec. (24.2-36.6) 10/27/18 13:33 Heparin Anti-Xa Level 1.05 U.I./ml (0.3-0.7) H 11/01/18 11:38 Heparin Anti-Xa, Unfract Negative (Negative) 10/15/18 12:00 POC ABG pH 7.393 (7.35-7.45) 10/16/18 12:51 POC ABG pCO2 48.9 (35-45) H 10/16/18 12:51 POC ABG pO2 92 (80-105) 10/16/18 12:51 POC ABG HCO3 29.8 (22-26 mml/L) 10/16/18 12:51 POC ABG Total CO2 31 (23-27mmol/L) 10/16/18 12:51 POC ABG O2 Sat 97 10/16/18 12:51 POC ABG Base Excess 5 ((-2) - (+3)mmol/L) 10/16/18 12:51 35 % 10/16/18 12:51 Sodium 135 mmol/L (137-145) L 11/06/18 07:00 Potassium 4.0 mmol/L (3.6-5.0) 11/06/18 07:00 Chloride 97.3 mmol/L (98-107) L 11/06/18 07:00 Carbon Dioxide 29 mmol/L (22-30) 11/06/18 07:00 13 mmol/L 11/06/18 07:00 BUN 15 mg/dL (9-20) 11/06/18 07:00 0.5 mg/dL (0.8-1.5) L 11/06/18 07:00 Estimated GFR > 60 ml/min 11/06/18 07:00 30 % 11/06/18 07:00 Glucose 163 mg/dL (75-100) H 11/06/18 07:00 POC Glucose 215 (70-105) H 11/06/18 07:31 Lactic Acid 2.70 mmol/L (0.7-2.0) H* 10/11/18 12:30 Calcium 8.5 mg/dL (8.4-10.2) 11/06/18 07:00 Phosphorus 2.80 mg/dL (2.5-4.5) 10/21/18 04:59 Magnesium 1.70 mg/dL (1.7-2.3) 11/01/18 05:52 0.70 mg/dL (0.1-1.2) 11/04/18 15:45 AST 38 units/L (5-40) 11/04/18 15:45 ALT 23 units/L (7-56) 11/04/18 15:45 54 units/L (35-129) 11/04/18 15:45 3647 units/L (55-170) H 10/12/18 04:04 CK-MB (CK-2) 48.3 ng/mL (0.0-4.0) H 10/12/18 04:04 CK-MB (CK-2) Rel Index 1.3 (0-4) 10/12/18 04:04 0.816 ng/mL (0.00-0.029) H* 10/13/18 16:15 6.8 g/dL (6.3-8.2) 11/04/18 15:45 2.6 g/dL (3.9-5) L 11/04/18 15:45 0.6 % 11/04/18 15:45 0.073 g/L (0.200-0.400) L 11/04/18 15:45 Triglycerides 87 mg/dL (2-149) 10/11/18 00:16 Cholesterol 73 mg/dL (50-199) 10/11/18 00:16 51 mg/dL (50-130) 10/11/18 00:16 19 mg/dL (40-59) L 10/11/18 00:16 3.84 % 10/11/18 00:16 See scanned report 10/15/18 12:00 Yellow (Yellow) 10/11/18 01:42 Cloudy (Clear) 10/11/18 01:42 6.0 (5.0-7.0) 10/11/18 01:42 Ur Specific [place] 1.011 (1.003-1.030) 10/11/18 01:42 100 mg/dl mg/dL (Negative) 10/11/18 01:42 >=500 mg/dL (Negative) 10/11/18 01:42 Neg mg/dL (Negative) 10/11/18 01:42 Mod (Negative) 10/11/18 01:42 Neg (Negative) 10/11/18 01:42 Neg (Negative) 10/11/18 01:42 4.0 mg/dL (<2.0) 10/11/18 01:42 Ur Leukocyte Esterase Neg (Negative) 10/11/18 01:42 5.0 /HPF (0.0-6.0) 10/11/18 01:42 2.0 /HPF (0.0-6.0) 10/11/18 01:42 U Epithel Cells (Auto) < 1.0 /HPF (0-13.0) 10/11/18 01:42 Amorphous Crystals 1+ 10/11/18 01:42 Few /HPF 10/11/18 01:42 2+ /HPF ([employer]) 10/11/18 01:42 Vancomycin Trough 8.3 ug/mL (5.0-20.0) 10/13/18 05:40 Salicylates < 0.3 mg/dL (2.8-20.0) L 10/11/18 00:16 Presumptive positive 10/11/18 01:42 Presumptive negative 10/11/18 01:42 Acetaminophen < 5.0 ug/mL (10.0-30.0) L 10/11/18 00:16 Ur Barbiturates Screen Presumptive negative 10/11/18 01:42 Ur Phencyclidine Scrn Presumptive negative 10/11/18 01:42 Ur Amphetamines Screen Presumptive positive 10/11/18 01:42 U Benzodiazepines Scrn Presumptive positive 10/11/18 01:42 Presumptive negative 10/11/18 01:42 U Marijuana (THC) Screen Presumptive negative 10/11/18 01:42 Disclamer 10/11/18 01:42 Plasma/Serum Alcohol < 0.01 % (0-0.07) 10/11/18 00:16 Heparin-induced Plt Ab Negative (Negative) 10/15/18 12:00 UF Heparin High Dose 0 % Release 10/15/18 12:00 AURELIO UFH Low Dose 0.1 0 % Release 10/15/18 12:00 AURELIO UFH Low Dose 0.5 0 % Release 10/15/18 12:00 Blood Type O POSITIVE 10/31/18 08:07 Antibody Screen Positive 10/31/18 08:07 Antibody Identification Negative 10/31/18 08:07 Direct Antiglob Test Negative 10/31/18 08:07 SHASHANK, Poly Interpret Negative 10/31/18 08:07 Crossmatch See Detail 10/31/18 08:07 Active Medications - Current Medications Current Medications: Generic Name Dose Route Start Last Admin Trade Name Freq PRN Reason Stop Dose Admin Acetaminophen 650 mg 10/11/18 04:04 10/21/18 22:21 Tylenol PO 650 mg Q4H PRN Administration Pain MILD(1-3)/Fever >100.5/HOLLINS Albuterol 2.5 mg 10/19/18 00:54 Proventil IH Q4HRT PRN Shortness Of Breath Albuterol/Ipratropium 1 ampul 10/19/18 08:00 11/06/18 08:38 Duoneb *Not For Prn Use* IH 1 ampul TIDRT ISAAC Administration Alprazolam 1 mg 10/20/18 13:06 11/06/18 08:01 Xanax PO 1 mg TID PRN Administration Anxiety Apixaban 10 mg 11/01/18 16:00 11/06/18 09:08 Eliquis PO 11/08/18 10:01 10 mg Q12HR ISAAC Administration Protocol Apixaban 5 mg 11/08/18 22:00 Eliquis PO Q12HR ISAAC Protocol Aspirin 81 mg 11/01/18 16:00 11/06/18 09:08 Halfprin Ec PO 81 mg QDAY ISAAC Administration Buprenorphine HCl 2 each 11/05/18 10:00 11/05/18 09:56 Suboxone 2 Mg-0.5 Mg SL 2 each QDAY ISAAC Administration Citalopram Hydrobromide 20 mg 11/05/18 10:00 11/06/18 09:08 Celexa PO 20 mg QDAY ISAAC Administration Dextrose 0 ml 10/11/18 03:57 10/11/18 10:18 D50w (25gm) Syringe IV 10 ml PRN PRN Administration Hypoglycemia Docusate Sodium 100 mg 11/04/18 22:00 11/06/18 09:08 Colace PO 100 mg BID ISAAC Administration Famotidine 20 mg 10/15/18 10:00 11/06/18 09:08 Pepcid PO 20 mg BID ISAAC Administration Insulin Human Regular 0 units 10/17/18 11:30 11/06/18 08:58 Humulin R SUB-Q 4 units ACHS ISAAC Administration Protocol Metoprolol Tartrate 25 mg 10/18/18 22:00 11/06/18 09:08 Lopressor PO 25 mg BID ISAAC Administration Metoprolol Tartrate 2.5 mg 10/18/18 18:51 10/18/18 22:19 Lopressor IV 2.5 mg Q6H PRN Administration Tachyarrhythmias Naloxone HCl 0.1 mg 10/29/18 16:03 Narcan 0.4 Mg/1 Ml IV Q2MIN PRN Res Rate </= 8 or 02 SAT < 92% Ondansetron HCl 4 mg 10/11/18 04:04 11/01/18 22:12 Zofran IV 4 mg Q8H PRN Administration Nausea And Vomiting Oxycodone/Acetaminophen 1 tab 10/18/18 13:45 11/05/18 20:23 Percocet 5/325 PO 1 tab Q6H PRN Administration Pain, Moderate (4-6) Nutrition/Malnutrition Assess - Dietary Evaluation Nutrition/Malnutrition Findings: Nutrition Notes Start: 10/11/18 12:39 Freq: Status: Active Protocol: Document 11/02/18 11:12 SHERLY (Rec: 11/02/18 11:13 SHERLY [id number] [email or web address]) Nutrition Notes Need for Assessment generated from: Low BMI Initial or Follow up Brief Note Subjective/Other Information Pt screened for low BMI. Pt already being followed by RD. Nutrition Intervention Follow-Up By: 11/06/18 Additional Comments F/U: intakes
[2018-11-06] MEDS: SUBOXONE 2 MG-0.5 MG SL SCH (11:10)
[2018-11-06] MEDS: PERCOCET 5/325 PO PRN ×2 (11:17→22:52)
--- NOTE | 2018-11-06 14:41 | Progress Note ---
Assessment and Plan Patient sleeping. Resting on 2L O2 via nasal cannula. O2 saturation 99%. Patient weak. No acute respiratory distress. - Patient Problems (1) Acute respiratory failure Current Visit: Yes Status: Acute Plan to address problem: O2 2 litres via nasal canula. Albuterol/atrovent aerosol treatments q 6 hours. Patient is on Apixaban Continue famotidine. (2) Acute CVA (cerebrovascular accident) Current Visit: Yes Status: Acute Plan to address problem: Management as per neurology. (3) Altered mental state Current Visit: Yes Status: Acute Qualifiers: Altered mental status type: unspecified Qualified Code(s): R41.82 - Altered mental status, unspecified Plan to address problem: Management as per primary care. (4) Atrial fibrillation Current Visit: Yes Status: Acute Plan to address problem: Management as per primary care and cardiology. Patient is on Apixaban. (5) Diabetes mellitus with hyperglycemia Current Visit: Yes Status: Acute Plan to address problem: Management as per primary care. (6) Polysubstance abuse Current Visit: Yes Status: Chronic Plan to address problem: Management as per primary care. (7) Tobacco use Current Visit: Yes Status: Chronic Plan to address problem: Counselled to stop smoking. Subjective Date of service: 11/06/18 Principal diagnosis: Ac hypercapnic hypoxemic Resp failure; Drug OD; AE-COPD; NINOSKA; Seizures Interval history: Patient sleeping. Resting on 2L O2 via nasal cannula. O2 saturation 99%. Patient weak. No acute respiratory distress. Objective Vital Signs - 12hr 11/06/18 11/06/18 11/06/18 04:10 04:20 04:26 Temperature 97.5 F L Pulse Rate 84 84 84 Pulse Rate [ Anterior Bilateral Throughout] Pulse Rate [ Throughout] Respiratory 20 Rate Respiratory Rate [Anterior Bilateral Throughout] Respiratory 18 Rate [Left Leg] Respiratory 18 Rate [Right Arm ] Respiratory Rate [ Throughout] Blood Pressure 97/57 Blood Pressure [Right] O2 Sat by Pulse 91 Oximetry 11/06/18 11/06/18 11/06/18 07:31 08:39 08:42 Temperature Pulse Rate Pulse Rate [ 74 Anterior Bilateral Throughout] Pulse Rate [ 79 Throughout] Respiratory 18 Rate Respiratory 16 Rate [Anterior Bilateral Throughout] Respiratory Rate [Left Leg] Respiratory Rate [Right Arm ] Respiratory 18 Rate [ Throughout] Blood Pressure Blood Pressure [Right] O2 Sat by Pulse 96 Oximetry 11/06/18 11/06/18 09:02 12:44 Temperature 97.0 F L Pulse Rate 75 Pulse Rate [ Anterior Bilateral Throughout] Pulse Rate [ Throughout] Respiratory 19 Rate Respiratory Rate [Anterior Bilateral Throughout] Respiratory Rate [Left Leg] Respiratory Rate [Right Arm ] Respiratory Rate [ Throughout] Blood Pressure 105/63 Blood Pressure 104/63 [Right] O2 Sat by Pulse 99 Oximetry Constitutional: no acute distress, alert, other (middle aged but chronically ill looking CM; Atraumatic) Eyes: non-icteric ENT: oropharynx moist Neck: supple, no lymphadenopathy, no JVD Effort: normal Ascultation: Bilateral: diminished breath sounds, rhonchi Percussion: Bilateral: not dull Cardiovascular: irregular rhythm, other (No R/M) Gastrointestinal: normoactive bowel sounds, soft, non-tender, non-distended Integumentary: other (poor turgor) Extremities: no edema, other (s/p Left KBA, ischemic toes on the right with poor pedal pulses) Neurologic: normal mental status, pupils equal and round, other (Left hemiparesis, improving) Psychiatric: mood appropriate, affect normal CBC and BMP: 11/06/18 07:00 11/06/18 07:00 ABG, PT/INR, D-dimer: ABG POC ABG pH 7.393 (7.35-7.45) 10/16/18 12:51 POC ABG pCO2 48.9 (35-45) H 10/16/18 12:51 POC ABG pO2 92 (80-105) 10/16/18 12:51 POC ABG HCO3 29.8 (22-26 mml/L) 10/16/18 12:51 POC ABG Total CO2 31 (23-27mmol/L) 10/16/18 12:51 POC ABG O2 Sat 97 10/16/18 12:51 PT/INR, D-dimer PT 13.9 Sec. (12.2-14.9) 10/29/18 07:11 INR 1.01 (0.87-1.13) 10/29/18 07:11 Abnormal lab findings: Abnormal Labs 10/11/18 10/11/18 10/11/18 00:16 00:16 00:16 WBC 20.1 H RBC Hgb Hct MCV 98 H MCHC RDW 15.4 H Plt Count Lymph % (Auto) Garza % (Auto) Garza # Seg Neutrophils % Seg Neuts % (Manual) Lymphocytes % (Manual) 5.0 L Monocytes % (Manual) 25.0 H Seg Neutrophils # Seg Neutrophils # Man 9.2 H Lymphocytes # (Manual) 1.0 L Monocytes # (Manual) 5.0 H APTT Heparin Anti-Xa Level POC ABG pH POC ABG pCO2 POC ABG pO2 Sodium Potassium 5.8 H Chloride Carbon Dioxide 17 L BUN Creatinine 2.2 H Glucose 348 H POC Glucose Lactic Acid 13.70 H* Calcium 7.7 L Phosphorus Total Bilirubin 1.50 H AST 179 H ALT 110 H Total Creatine Kinase 324 H CK-MB (CK-2) Troponin T 0.257 H* Total Protein 5.9 L Albumin 2.9 L Prealbumin HDL Cholesterol 19 L Salicylates Acetaminophen Crossmatch 10/11/18 10/11/18 10/11/18 00:16 00:16 01:21 WBC RBC Hgb Hct MCV MCHC RDW Plt Count Lymph % (Auto) Garza % (Auto) Garza # Seg Neutrophils % Seg Neuts % (Manual) Lymphocytes % (Manual) Monocytes % (Manual) Seg Neutrophils # Seg Neutrophils # Man Lymphocytes # (Manual) Monocytes # (Manual) APTT Heparin Anti-Xa Level POC ABG pH 7.110 L POC ABG pCO2 50.3 H POC ABG pO2 65 L Sodium Potassium Chloride Carbon Dioxide BUN Creatinine Glucose POC Glucose Lactic Acid Calcium Phosphorus Total Bilirubin AST ALT Total Creatine Kinase CK-MB (CK-2) Troponin T Total Protein Albumin Prealbumin HDL Cholesterol Salicylates < 0.3 L Acetaminophen < 5.0 L Crossmatch 10/11/18 10/11/18 10/11/18 01:22 03:27 04:14 WBC RBC Hgb Hct MCV MCHC RDW Plt Count Lymph % (Auto) Garza % (Auto) Garza # Seg Neutrophils % Seg Neuts % (Manual) Lymphocytes % (Manual) Monocytes % (Manual) Seg Neutrophils # Seg Neutrophils # Man Lymphocytes # (Manual) Monocytes # (Manual) APTT Heparin Anti-Xa Level POC ABG pH POC ABG pCO2 POC ABG pO2 Sodium Potassium Chloride Carbon Dioxide BUN Creatinine Glucose POC Glucose Lactic Acid 8.50 H* 4.10 H* Calcium Phosphorus 4.90 H Total Bilirubin AST ALT Total Creatine Kinase CK-MB (CK-2) Troponin T Total Protein Albumin Prealbumin HDL Cholesterol Salicylates Acetaminophen Crossmatch 10/11/18 10/11/18 10/11/18 04:14 04:14 04:14 WBC RBC Hgb Hct MCV MCHC RDW Plt Count Lymph % (Auto) Garza % (Auto) Garza # Seg Neutrophils % Seg Neuts % (Manual) Lymphocytes % (Manual) Monocytes % (Manual) Seg Neutrophils # Seg Neutrophils # Man Lymphocytes # (Manual) Monocytes # (Manual) APTT Heparin Anti-Xa Level POC ABG pH POC ABG pCO2 POC ABG pO2 Sodium Potassium 5.6 H Chloride Carbon Dioxide 19 L BUN Creatinine 1.6 H Glucose 329 H POC Glucose 328 H Lactic Acid Calcium 7.3 L Phosphorus Total Bilirubin AST ALT Total Creatine Kinase CK-MB (CK-2) Troponin T 1.130 H* D Total Protein Albumin Prealbumin HDL Cholesterol Salicylates Acetaminophen Crossmatch 10/11/18 10/11/18 10/11/18 05:10 05:32 05:58 WBC RBC Hgb Hct MCV MCHC RDW Plt Count Lymph % (Auto) Garza % (Auto) Garza # Seg Neutrophils % Seg Neuts % (Manual) Lymphocytes % (Manual) Monocytes % (Manual) Seg Neutrophils # Seg Neutrophils # Man Lymphocytes # (Manual) Monocytes # (Manual) APTT Heparin Anti-Xa Level POC ABG pH 7.259 L POC ABG pCO2 45.6 H POC ABG pO2 Sodium Potassium Chloride 108.6 H Carbon Dioxide 20 L BUN Creatinine 1.8 H Glucose 269 H POC Glucose 273 H Lactic Acid Calcium 7.0 L Phosphorus Total Bilirubin AST ALT Total Creatine Kinase CK-MB (CK-2) Troponin T Total Protein Albumin Prealbumin HDL Cholesterol Salicylates Acetaminophen Crossmatch 10/11/18 10/11/18 10/11/18 05:58 06:39 07:00 WBC RBC Hgb Hct MCV MCHC RDW Plt Count Lymph % (Auto) Garza % (Auto) Garza # Seg Neutrophils % Seg Neuts % (Manual) Lymphocytes % (Manual) Monocytes % (Manual) Seg Neutrophils # Seg Neutrophils # Man Lymphocytes # (Manual) Monocytes # (Manual) APTT Heparin Anti-Xa Level POC ABG pH POC ABG pCO2 POC ABG pO2 Sodium Potassium Chloride Carbon Dioxide BUN Creatinine Glucose POC Glucose 247 H Lactic Acid 3.20 H* 3.30 H* Calcium Phosphorus Total Bilirubin AST ALT Total Creatine Kinase CK-MB (CK-2) Troponin T Total Protein Albumin Prealbumin HDL Cholesterol Salicylates Acetaminophen Crossmatch 10/11/18 10/11/18 10/11/18 07:00 07:30 07:36 WBC RBC Hgb Hct MCV MCHC RDW Plt Count Lymph % (Auto) Garza % (Auto) Garza # Seg Neutrophils % Seg Neuts % (Manual) Lymphocytes % (Manual) Monocytes % (Manual) Seg Neutrophils # Seg Neutrophils # Man Lymphocytes # (Manual) Monocytes # (Manual) APTT Heparin Anti-Xa Level POC ABG pH POC ABG pCO2 POC ABG pO2 Sodium 146 H Potassium Chloride 112.1 H Carbon Dioxide 21 L BUN Creatinine 1.6 H Glucose 218 H POC Glucose Lactic Acid 3.20 H* Calcium 7.0 L Phosphorus Total Bilirubin AST ALT Total Creatine Kinase CK-MB (CK-2) Troponin T 1.020 H* Total Protein Albumin Prealbumin HDL Cholesterol Salicylates Acetaminophen Crossmatch 10/11/18 10/11/18 10/11/18 07:43 08:29 08:29 WBC RBC Hgb 16.2 H Hct 49.9 H D MCV MCHC RDW Plt Count Lymph % (Auto) Garza % (Auto) Garza # Seg Neutrophils % Seg Neuts % (Manual) Lymphocytes % (Manual) Monocytes % (Manual) Seg Neutrophils # Seg Neutrophils # Man Lymphocytes # (Manual) Monocytes # (Manual) APTT Heparin Anti-Xa Level POC ABG pH POC ABG pCO2 POC ABG pO2 Sodium Potassium Chloride Carbon Dioxide BUN Creatinine Glucose POC Glucose 174 H Lactic Acid 3.90 H* Calcium Phosphorus Total Bilirubin AST ALT Total Creatine Kinase CK-MB (CK-2) Troponin T Total Protein Albumin Prealbumin HDL Cholesterol Salicylates Acetaminophen Crossmatch 10/11/18 10/11/18 10/11/18 08:29 08:42 11:05 WBC RBC Hgb Hct MCV MCHC RDW Plt Count Lymph % (Auto) Garza % (Auto) Garza # Seg Neutrophils % Seg Neuts % (Manual) Lymphocytes % (Manual) Monocytes % (Manual) Seg Neutrophils # Seg Neutrophils # Man Lymphocytes # (Manual) Monocytes # (Manual) APTT 24.1 L Heparin Anti-Xa Level POC ABG pH POC ABG pCO2 POC ABG pO2 Sodium 147 H Potassium Chloride 113.3 H Carbon Dioxide 21 L BUN Creatinine 1.7 H Glucose 119 H POC Glucose 164 H Lactic Acid Calcium 7.7 L Phosphorus Total Bilirubin AST ALT Total Creatine Kinase CK-MB (CK-2) Troponin T Total Protein Albumin Prealbumin HDL Cholesterol Salicylates Acetaminophen Crossmatch 10/11/18 10/11/18 10/11/18 11:05 11:06 12:30 WBC RBC Hgb Hct MCV MCHC RDW Plt Count Lymph % (Auto) Garza % (Auto) Garza # Seg Neutrophils % Seg Neuts % (Manual) Lymphocytes % (Manual) Monocytes % (Manual) Seg Neutrophils # Seg Neutrophils # Man Lymphocytes # (Manual) Monocytes # (Manual) APTT Heparin Anti-Xa Level POC ABG pH POC ABG pCO2 POC ABG pO2 Sodium 148 H Potassium Chloride 113.4 H Carbon Dioxide 21 L BUN Creatinine 1.6 H Glucose 119 H POC Glucose 116 H Lactic Acid 3.20 H* Calcium 7.5 L Phosphorus Total Bilirubin AST ALT Total Creatine Kinase CK-MB (CK-2) Troponin T Total Protein Albumin Prealbumin HDL Cholesterol Salicylates Acetaminophen Crossmatch 10/11/18 10/11/18 10/11/18 12:30 13:16 13:25 WBC RBC Hgb Hct MCV MCHC RDW Plt Count Lymph % (Auto) Garza % (Auto) Garza # Seg Neutrophils % Seg Neuts % (Manual) Lymphocytes % (Manual) Monocytes % (Manual) Seg Neutrophils # Seg Neutrophils # Man Lymphocytes # (Manual) Monocytes # (Manual) APTT Heparin Anti-Xa Level POC ABG pH 7.247 L POC ABG pCO2 48.4 H POC ABG pO2 Sodium Potassium Chloride Carbon Dioxide BUN Creatinine Glucose POC Glucose 112 H Lactic Acid 2.70 H* Calcium Phosphorus Total Bilirubin AST ALT Total Creatine Kinase CK-MB (CK-2) Troponin T Total Protein Albumin Prealbumin HDL Cholesterol Salicylates Acetaminophen Crossmatch 10/11/18 10/11/18 10/11/18 14:41 15:27 16:13 WBC RBC Hgb Hct MCV MCHC RDW Plt Count Lymph % (Auto) Garza % (Auto) Garza # Seg Neutrophils % Seg Neuts % (Manual) Lymphocytes % (Manual) Monocytes % (Manual) Seg Neutrophils # Seg Neutrophils # Man Lymphocytes # (Manual) Monocytes # (Manual) APTT Heparin Anti-Xa Level POC ABG pH POC ABG pCO2 POC ABG pO2 Sodium Potassium Chloride Carbon Dioxide BUN Creatinine Glucose POC Glucose 127 H 141 H 134 H Lactic Acid Calcium Phosphorus Total Bilirubin AST ALT Total Creatine Kinase CK-MB (CK-2) Troponin T Total Protein Albumin Prealbumin HDL Cholesterol Salicylates Acetaminophen Crossmatch 10/11/18 10/11/18 10/11/18 17:18 18:23 19:38 WBC RBC Hgb Hct MCV MCHC RDW Plt Count Lymph % (Auto) Garza % (Auto) Garza # Seg Neutrophils % Seg Neuts % (Manual) Lymphocytes % (Manual) Monocytes % (Manual) Seg Neutrophils # Seg Neutrophils # Man Lymphocytes # (Manual) Monocytes # (Manual) APTT Heparin Anti-Xa Level POC ABG pH POC ABG pCO2 POC ABG pO2 Sodium 148 H Potassium Chloride 112.7 H Carbon Dioxide BUN 23 H Creatinine Glucose 143 H POC Glucose 132 H 129 H Lactic Acid Calcium 7.9 L Phosphorus Total Bilirubin AST ALT Total Creatine Kinase CK-MB (CK-2) Troponin T Total Protein Albumin Prealbumin HDL Cholesterol Salicylates Acetaminophen Crossmatch 10/11/18 10/11/18 10/11/18 20:19 20:36 21:01 WBC RBC Hgb Hct MCV MCHC RDW Plt Count Lymph % (Auto) Garza % (Auto) Garza # Seg Neutrophils % Seg Neuts % (Manual) Lymphocytes % (Manual) Monocytes % (Manual) Seg Neutrophils # Seg Neutrophils # Man Lymphocytes # (Manual) Monocytes # (Manual) APTT Heparin Anti-Xa Level POC ABG pH 7.281 L POC ABG pCO2 POC ABG pO2 Sodium Potassium Chloride Carbon Dioxide BUN Creatinine Glucose POC Glucose 129 H 151 H Lactic Acid Calcium Phosphorus Total Bilirubin AST ALT Total Creatine Kinase CK-MB (CK-2) Troponin T Total Protein Albumin Prealbumin HDL Cholesterol Salicylates Acetaminophen Crossmatch 10/11/18 10/11/18 10/12/18 22:04 23:15 01:18 WBC RBC Hgb Hct MCV MCHC RDW Plt Count Lymph % (Auto) Garza % (Auto) Garza # Seg Neutrophils % Seg Neuts % (Manual) Lymphocytes % (Manual) Monocytes % (Manual) Seg Neutrophils # Seg Neutrophils # Man Lymphocytes # (Manual) Monocytes # (Manual) APTT Heparin Anti-Xa Level POC ABG pH POC ABG pCO2 POC ABG pO2 Sodium Potassium Chloride Carbon Dioxide BUN Creatinine Glucose POC Glucose 147 H 143 H 158 H Lactic Acid Calcium Phosphorus Total Bilirubin AST ALT Total Creatine Kinase CK-MB (CK-2) Troponin T Total Protein Albumin Prealbumin HDL Cholesterol Salicylates Acetaminophen Crossmatch 10/12/18 10/12/18 10/12/18 02:13 03:18 04:04 WBC RBC Hgb Hct MCV MCHC RDW Plt Count Lymph % (Auto) Garza % (Auto) Garza # Seg Neutrophils % Seg Neuts % (Manual) Lymphocytes % (Manual) Monocytes % (Manual) Seg Neutrophils # Seg Neutrophils # Man Lymphocytes # (Manual) Monocytes # (Manual) APTT Heparin Anti-Xa Level POC ABG pH POC ABG pCO2 POC ABG pO2 Sodium 147 H Potassium Chloride 111.1 H Carbon Dioxide BUN 30 H Creatinine 2.0 H Glucose 154 H POC Glucose 148 H 142 H Lactic Acid Calcium 8.1 L Phosphorus Total Bilirubin AST 269 H ALT 204 H Total Creatine Kinase 3647 H CK-MB (CK-2) 48.3 H Troponin T 2.230 H* D Total Protein 5.8 L Albumin 2.6 L Prealbumin HDL Cholesterol Salicylates Acetaminophen Crossmatch 10/12/18 10/12/18 10/12/18 04:04 04:08 04:19 WBC 24.4 H RBC Hgb Hct MCV MCHC RDW Plt Count Lymph % (Auto) Garza % (Auto) Garza # Seg Neutrophils % Seg Neuts % (Manual) 32.0 L Lymphocytes % (Manual) Monocytes % (Manual) 8.0 H Seg Neutrophils # Seg Neutrophils # Man 7.8 H Lymphocytes # (Manual) Monocytes # (Manual) 2.0 H APTT Heparin Anti-Xa Level POC ABG pH 7.317 L POC ABG pCO2 49.3 H POC ABG pO2 Sodium Potassium Chloride Carbon Dioxide BUN Creatinine Glucose POC Glucose 143 H Lactic Acid Calcium Phosphorus Total Bilirubin AST ALT Total Creatine Kinase CK-MB (CK-2) Troponin T Total Protein Albumin Prealbumin HDL Cholesterol Salicylates Acetaminophen Crossmatch 10/12/18 10/12/18 10/12/18 05:29 06:52 08:09 WBC RBC Hgb Hct MCV MCHC RDW Plt Count Lymph % (Auto) Garza % (Auto) Garza # Seg Neutrophils % Seg Neuts % (Manual) Lymphocytes % (Manual) Monocytes % (Manual) Seg Neutrophils # Seg Neutrophils # Man Lymphocytes # (Manual) Monocytes # (Manual) APTT Heparin Anti-Xa Level POC ABG pH 7.322 L POC ABG pCO2 46.5 H POC ABG pO2 Sodium Potassium Chloride Carbon Dioxide BUN Creatinine Glucose POC Glucose 196 H 226 H Lactic Acid Calcium Phosphorus Total Bilirubin AST ALT Total Creatine Kinase CK-MB (CK-2) Troponin T Total Protein Albumin Prealbumin HDL Cholesterol Salicylates Acetaminophen Crossmatch 10/12/18 10/12/18 10/12/18 08:38 10:03 15:50 WBC RBC Hgb Hct MCV MCHC RDW Plt Count Lymph % (Auto) Garza % (Auto) Garza # Seg Neutrophils % Seg Neuts % (Manual) Lymphocytes % (Manual) Monocytes % (Manual) Seg Neutrophils # Seg Neutrophils # Man Lymphocytes # (Manual) Monocytes # (Manual) APTT Heparin Anti-Xa Level POC ABG pH POC ABG pCO2 POC ABG pO2 Sodium Potassium Chloride Carbon Dioxide BUN Creatinine Glucose POC Glucose 138 H 148 H 221 H Lactic Acid Calcium Phosphorus Total Bilirubin AST ALT Total Creatine Kinase CK-MB (CK-2) Troponin T Total Protein Albumin Prealbumin HDL Cholesterol Salicylates Acetaminophen Crossmatch 10/12/18 10/12/18 10/12/18 18:39 20:56 21:34 WBC RBC Hgb Hct MCV MCHC RDW Plt Count Lymph % (Auto) Garza % (Auto) Garza # Seg Neutrophils % Seg Neuts % (Manual) Lymphocytes % (Manual) Monocytes % (Manual) Seg Neutrophils # Seg Neutrophils # Man Lymphocytes # (Manual) Monocytes # (Manual) APTT Heparin Anti-Xa Level POC ABG pH 7.336 L POC ABG pCO2 46.0 H POC ABG pO2 Sodium Potassium Chloride Carbon Dioxide BUN Creatinine Glucose POC Glucose 255 H 260 H Lactic Acid Calcium Phosphorus Total Bilirubin AST ALT Total Creatine Kinase CK-MB (CK-2) Troponin T Total Protein Albumin Prealbumin HDL Cholesterol Salicylates Acetaminophen Crossmatch 10/13/18 10/13/18 10/13/18 02:29 05:09 05:40 WBC 17.0 H RBC Hgb Hct MCV MCHC RDW Plt Count Lymph % (Auto) Garza % (Auto) 9.2 H Garza # 1.6 H Seg Neutrophils % 76.2 H Seg Neuts % (Manual) Lymphocytes % (Manual) Monocytes % (Manual) Seg Neutrophils # 12.9 H Seg Neutrophils # Man Lymphocytes # (Manual) Monocytes # (Manual) APTT Heparin Anti-Xa Level POC ABG pH POC ABG pCO2 POC ABG pO2 Sodium Potassium Chloride Carbon Dioxide BUN Creatinine Glucose POC Glucose 216 H 249 H Lactic Acid Calcium Phosphorus Total Bilirubin AST ALT Total Creatine Kinase CK-MB (CK-2) Troponin T Total Protein Albumin Prealbumin HDL Cholesterol Salicylates Acetaminophen Crossmatch 10/13/18 10/13/18 10/13/18 05:40 05:40 09:46 WBC RBC Hgb Hct MCV MCHC RDW Plt Count Lymph % (Auto) Garza % (Auto) Garza # Seg Neutrophils % Seg Neuts % (Manual) Lymphocytes % (Manual) Monocytes % (Manual) Seg Neutrophils # Seg Neutrophils # Man Lymphocytes # (Manual) Monocytes # (Manual) APTT Heparin Anti-Xa Level POC ABG pH POC ABG pCO2 POC ABG pO2 Sodium 146 H Potassium Chloride 109.8 H Carbon Dioxide BUN 35 H Creatinine Glucose 245 H POC Glucose 235 H Lactic Acid Calcium 7.9 L Phosphorus Total Bilirubin AST ALT Total Creatine Kinase CK-MB (CK-2) Troponin T 0.952 H* D Total Protein Albumin Prealbumin HDL Cholesterol Salicylates Acetaminophen Crossmatch 10/13/18 10/13/18 10/13/18 13:58 16:15 17:30 WBC RBC Hgb Hct MCV MCHC RDW Plt Count Lymph % (Auto) Garza % (Auto) Garza # Seg Neutrophils % Seg Neuts % (Manual) Lymphocytes % (Manual) Monocytes % (Manual) Seg Neutrophils # Seg Neutrophils # Man Lymphocytes # (Manual) Monocytes # (Manual) APTT Heparin Anti-Xa Level POC ABG pH POC ABG pCO2 51.2 H POC ABG pO2 Sodium Potassium Chloride Carbon Dioxide BUN Creatinine Glucose POC Glucose 139 H Lactic Acid Calcium Phosphorus Total Bilirubin AST ALT Total Creatine Kinase CK-MB (CK-2) Troponin T 0.816 H* Total Protein Albumin Prealbumin HDL Cholesterol Salicylates Acetaminophen Crossmatch 10/13/18 10/14/18 10/14/18 21:25 01:49 04:52 WBC RBC Hgb Hct MCV MCHC RDW Plt Count Lymph % (Auto) Garza % (Auto) Garza # Seg Neutrophils % Seg Neuts % (Manual) Lymphocytes % (Manual) Monocytes % (Manual) Seg Neutrophils # Seg Neutrophils # Man Lymphocytes # (Manual) Monocytes # (Manual) APTT Heparin Anti-Xa Level POC ABG pH POC ABG pCO2 56.0 H POC ABG pO2 Sodium Potassium Chloride Carbon Dioxide BUN Creatinine Glucose POC Glucose 205 H 166 H Lactic Acid Calcium Phosphorus Total Bilirubin AST ALT Total Creatine Kinase CK-MB (CK-2) Troponin T Total Protein Albumin Prealbumin HDL Cholesterol Salicylates Acetaminophen Crossmatch 10/14/18 10/14/18 10/14/18 05:32 09:45 09:45 WBC RBC Hgb 11.4 L Hct 34.5 L MCV MCHC RDW Plt Count 139 L Lymph % (Auto) Garza % (Auto) Garza # Seg Neutrophils % Seg Neuts % (Manual) Lymphocytes % (Manual) Monocytes % (Manual) Seg Neutrophils # Seg Neutrophils # Man Lymphocytes # (Manual) Monocytes # (Manual) APTT Heparin Anti-Xa Level POC ABG pH POC ABG pCO2 POC ABG pO2 Sodium 148 H Potassium Chloride 107.3 H Carbon Dioxide 34 H D BUN Creatinine 0.7 L D Glucose 191 H POC Glucose 164 H Lactic Acid Calcium 7.3 L Phosphorus Total Bilirubin AST 110 H ALT 91 H Total Creatine Kinase CK-MB (CK-2) Troponin T Total Protein 4.9 L Albumin 2.0 L Prealbumin HDL Cholesterol Salicylates Acetaminophen Crossmatch 10/14/18 10/14/18 10/14/18 10:54 12:20 18:30 WBC RBC Hgb Hct MCV MCHC RDW Plt Count Lymph % (Auto) Garza % (Auto) Garza # Seg Neutrophils % Seg Neuts % (Manual) Lymphocytes % (Manual) Monocytes % (Manual) Seg Neutrophils # Seg Neutrophils # Man Lymphocytes # (Manual) Monocytes # (Manual) APTT Heparin Anti-Xa Level POC ABG pH POC ABG pCO2 POC ABG pO2 Sodium Potassium Chloride Carbon Dioxide BUN Creatinine Glucose POC Glucose 173 H 158 H 108 H Lactic Acid Calcium Phosphorus Total Bilirubin AST ALT Total Creatine Kinase CK-MB (CK-2) Troponin T Total Protein Albumin Prealbumin HDL Cholesterol Salicylates Acetaminophen Crossmatch 10/14/18 10/15/18 10/15/18 21:54 02:12 04:19 WBC RBC Hgb Hct MCV MCHC RDW Plt Count Lymph % (Auto) Garza % (Auto) Garza # Seg Neutrophils % Seg Neuts % (Manual) Lymphocytes % (Manual) Monocytes % (Manual) Seg Neutrophils # Seg Neutrophils # Man Lymphocytes # (Manual) Monocytes # (Manual) APTT Heparin Anti-Xa Level POC ABG pH 7.491 H POC ABG pCO2 45.1 H POC ABG pO2 Sodium Potassium Chloride Carbon Dioxide BUN Creatinine Glucose POC Glucose 110 H 164 H Lactic Acid Calcium Phosphorus Total Bilirubin AST ALT Total Creatine Kinase CK-MB (CK-2) Troponin T Total Protein Albumin Prealbumin HDL Cholesterol Salicylates Acetaminophen Crossmatch 10/15/18 10/15/18 10/15/18 04:55 05:43 06:20 WBC RBC Hgb 11.7 L Hct 34.7 L MCV MCHC RDW Plt Count Lymph % (Auto) Garza % (Auto) Garza # Seg Neutrophils % Seg Neuts % (Manual) Lymphocytes % (Manual) Monocytes % (Manual) Seg Neutrophils # Seg Neutrophils # Man Lymphocytes # (Manual) Monocytes # (Manual) APTT Heparin Anti-Xa Level POC ABG pH POC ABG pCO2 47.3 H POC ABG pO2 78 L Sodium Potassium Chloride Carbon Dioxide BUN Creatinine Glucose POC Glucose 250 H Lactic Acid Calcium Phosphorus Total Bilirubin AST ALT Total Creatine Kinase CK-MB (CK-2) Troponin T Total Protein Albumin Prealbumin HDL Cholesterol Salicylates Acetaminophen Crossmatch 10/15/18 10/15/18 10/15/18 12:00 12:00 12:11 WBC RBC Hgb 11.5 L Hct 34.0 L MCV MCHC RDW Plt Count Lymph % (Auto) Garza % (Auto) Garza # Seg Neutrophils % Seg Neuts % (Manual) Lymphocytes % (Manual) Monocytes % (Manual) Seg Neutrophils # Seg Neutrophils # Man Lymphocytes # (Manual) Monocytes # (Manual) APTT Heparin Anti-Xa Level POC ABG pH POC ABG pCO2 POC ABG pO2 Sodium 147 H Potassium Chloride 108.5 H Carbon Dioxide BUN Creatinine 0.7 L Glucose 209 H POC Glucose 197 H Lactic Acid Calcium 7.3 L Phosphorus Total Bilirubin AST ALT Total Creatine Kinase CK-MB (CK-2) Troponin T Total Protein Albumin Prealbumin HDL Cholesterol Salicylates Acetaminophen Crossmatch 10/15/18 10/15/18 10/15/18 15:48 18:34 21:29 WBC RBC Hgb Hct MCV MCHC RDW Plt Count Lymph % (Auto) Garza % (Auto) Garza # Seg Neutrophils % Seg Neuts % (Manual) Lymphocytes % (Manual) Monocytes % (Manual) Seg Neutrophils # Seg Neutrophils # Man Lymphocytes # (Manual) Monocytes # (Manual) APTT Heparin Anti-Xa Level POC ABG pH POC ABG pCO2 POC ABG pO2 Sodium Potassium Chloride Carbon Dioxide BUN Creatinine Glucose POC Glucose 220 H 249 H 209 H Lactic Acid Calcium Phosphorus Total Bilirubin AST ALT Total Creatine Kinase CK-MB (CK-2) Troponin T Total Protein Albumin Prealbumin HDL Cholesterol Salicylates Acetaminophen Crossmatch 10/16/18 10/16/18 10/16/18 02:16 03:50 05:57 WBC RBC Hgb Hct MCV MCHC RDW Plt Count Lymph % (Auto) Garza % (Auto) Garza # Seg Neutrophils % Seg Neuts % (Manual) Lymphocytes % (Manual) Monocytes % (Manual) Seg Neutrophils # Seg Neutrophils # Man Lymphocytes # (Manual) Monocytes # (Manual) APTT Heparin Anti-Xa Level POC ABG pH POC ABG pCO2 55.8 H POC ABG pO2 Sodium Potassium Chloride Carbon Dioxide BUN Creatinine Glucose POC Glucose 110 H 209 H Lactic Acid Calcium Phosphorus Total Bilirubin AST ALT Total Creatine Kinase CK-MB (CK-2) Troponin T Total Protein Albumin Prealbumin HDL Cholesterol Salicylates Acetaminophen Crossmatch 10/16/18 10/16/18 10/16/18 10:51 12:51 15:01 WBC RBC Hgb Hct MCV MCHC RDW Plt Count Lymph % (Auto) Garza % (Auto) Garza # Seg Neutrophils % Seg Neuts % (Manual) Lymphocytes % (Manual) Monocytes % (Manual) Seg Neutrophils # Seg Neutrophils # Man Lymphocytes # (Manual) Monocytes # (Manual) APTT Heparin Anti-Xa Level POC ABG pH POC ABG pCO2 48.9 H POC ABG pO2 Sodium Potassium Chloride Carbon Dioxide BUN Creatinine Glucose POC Glucose 198 H 196 H Lactic Acid Calcium Phosphorus Total Bilirubin AST ALT Total Creatine Kinase CK-MB (CK-2) Troponin T Total Protein Albumin Prealbumin HDL Cholesterol Salicylates Acetaminophen Crossmatch 10/16/18 10/16/18 10/17/18 17:34 21:59 02:17 WBC RBC Hgb Hct MCV MCHC RDW Plt Count Lymph % (Auto) Garza % (Auto) Garza # Seg Neutrophils % Seg Neuts % (Manual) Lymphocytes % (Manual) Monocytes % (Manual) Seg Neutrophils # Seg Neutrophils # Man Lymphocytes # (Manual) Monocytes # (Manual) APTT Heparin Anti-Xa Level POC ABG pH POC ABG pCO2 POC ABG pO2 Sodium Potassium Chloride Carbon Dioxide BUN Creatinine Glucose POC Glucose 179 H 139 H 135 H Lactic Acid Calcium Phosphorus Total Bilirubin AST ALT Total Creatine Kinase CK-MB (CK-2) Troponin T Total Protein Albumin Prealbumin HDL Cholesterol Salicylates Acetaminophen Crossmatch 10/17/18 10/17/18 10/17/18 05:40 05:47 10:18 WBC RBC Hgb 11.3 L Hct 33.2 L MCV MCHC RDW Plt Count Lymph % (Auto) Garza % (Auto) Garza # Seg Neutrophils % Seg Neuts % (Manual) Lymphocytes % (Manual) Monocytes % (Manual) Seg Neutrophils # Seg Neutrophils # Man Lymphocytes # (Manual) Monocytes # (Manual) APTT Heparin Anti-Xa Level POC ABG pH POC ABG pCO2 POC ABG pO2 Sodium Potassium Chloride Carbon Dioxide BUN Creatinine Glucose POC Glucose 125 H 139 H Lactic Acid Calcium Phosphorus Total Bilirubin AST ALT Total Creatine Kinase CK-MB (CK-2) Troponin T Total Protein Albumin Prealbumin HDL Cholesterol Salicylates Acetaminophen Crossmatch 10/17/18 10/18/18 10/18/18 23:11 08:49 11:31 WBC RBC Hgb Hct MCV MCHC RDW Plt Count Lymph % (Auto) Garza % (Auto) Garza # Seg Neutrophils % Seg Neuts % (Manual) Lymphocytes % (Manual) Monocytes % (Manual) Seg Neutrophils # Seg Neutrophils # Man Lymphocytes # (Manual) Monocytes # (Manual) APTT Heparin Anti-Xa Level POC ABG pH POC ABG pCO2 POC ABG pO2 Sodium Potassium Chloride Carbon Dioxide BUN Creatinine Glucose POC Glucose 165 H 125 H 182 H Lactic Acid Calcium Phosphorus Total Bilirubin AST ALT Total Creatine Kinase CK-MB (CK-2) Troponin T Total Protein Albumin Prealbumin HDL Cholesterol Salicylates Acetaminophen Crossmatch 10/18/18 10/18/18 10/19/18 16:12 21:02 00:28 WBC RBC Hgb 11.4 L Hct 33.6 L MCV MCHC RDW Plt Count Lymph % (Auto) Garza % (Auto) 14.0 H Garza # 1.2 H Seg Neutrophils % Seg Neuts % (Manual) Lymphocytes % (Manual) Monocytes % (Manual) Seg Neutrophils # Seg Neutrophils # Man Lymphocytes # (Manual) Monocytes # (Manual) APTT Heparin Anti-Xa Level POC ABG pH POC ABG pCO2 POC ABG pO2 Sodium Potassium Chloride Carbon Dioxide BUN Creatinine Glucose POC Glucose 168 H 324 H Lactic Acid Calcium Phosphorus Total Bilirubin AST ALT Total Creatine Kinase CK-MB (CK-2) Troponin T Total Protein Albumin Prealbumin HDL Cholesterol Salicylates Acetaminophen Crossmatch 10/19/18 10/19/18 10/19/18 04:57 04:57 07:32 WBC RBC Hgb 11.7 L Hct 34.0 L MCV MCHC RDW Plt Count Lymph % (Auto) Garza % (Auto) Garza # Seg Neutrophils % Seg Neuts % (Manual) Lymphocytes % (Manual) Monocytes % (Manual) Seg Neutrophils # Seg Neutrophils # Man Lymphocytes # (Manual) Monocytes # (Manual) APTT Heparin Anti-Xa Level POC ABG pH POC ABG pCO2 POC ABG pO2 Sodium Potassium 3.5 L Chloride 108.6 H Carbon Dioxide BUN Creatinine 0.6 L Glucose POC Glucose 159 H Lactic Acid Calcium 7.9 L Phosphorus Total Bilirubin AST ALT Total Creatine Kinase CK-MB (CK-2) Troponin T Total Protein Albumin Prealbumin HDL Cholesterol Salicylates Acetaminophen Crossmatch 10/19/18 10/19/18 10/20/18 16:25 20:59 12:04 WBC RBC Hgb Hct MCV MCHC RDW Plt Count Lymph % (Auto) Garza % (Auto) Garza # Seg Neutrophils % Seg Neuts % (Manual) Lymphocytes % (Manual) Monocytes % (Manual) Seg Neutrophils # Seg Neutrophils # Man Lymphocytes # (Manual) Monocytes # (Manual) APTT Heparin Anti-Xa Level POC ABG pH POC ABG pCO2 POC ABG pO2 Sodium Potassium Chloride Carbon Dioxide BUN Creatinine Glucose POC Glucose 134 H 110 H 338 H Lactic Acid Calcium Phosphorus Total Bilirubin AST ALT Total Creatine Kinase CK-MB (CK-2) Troponin T Total Protein Albumin Prealbumin HDL Cholesterol Salicylates Acetaminophen Crossmatch 10/20/18 10/20/18 10/21/18 17:55 22:07 04:59 WBC RBC Hgb 11.6 L Hct 33.9 L MCV MCHC RDW Plt Count Lymph % (Auto) Garza % (Auto) 9.7 H Garza # 0.9 H Seg Neutrophils % 70.7 H Seg Neuts % (Manual) Lymphocytes % (Manual) Monocytes % (Manual) Seg Neutrophils # Seg Neutrophils # Man Lymphocytes # (Manual) Monocytes # (Manual) APTT Heparin Anti-Xa Level POC ABG pH POC ABG pCO2 POC ABG pO2 Sodium Potassium Chloride Carbon Dioxide BUN Creatinine Glucose POC Glucose 146 H 164 H Lactic Acid Calcium Phosphorus Total Bilirubin AST ALT Total Creatine Kinase CK-MB (CK-2) Troponin T Total Protein Albumin Prealbumin HDL Cholesterol Salicylates Acetaminophen Crossmatch 05/05/3010/21/18 10/21/18 04:59 07:52 11:39 WBC RBC Hgb Hct MCV MCHC RDW Plt Count Lymph % (Auto) Garza % (Auto) Garza # Seg Neutrophils % Seg Neuts % (Manual) Lymphocytes % (Manual) Monocytes % (Manual) Seg Neutrophils # Seg Neutrophils # Man Lymphocytes # (Manual) Monocytes # (Manual) APTT Heparin Anti-Xa Level POC ABG pH POC ABG pCO2 POC ABG pO2 Sodium Potassium 3.5 L Chloride 107.1 H Carbon Dioxide BUN Creatinine 0.5 L Glucose 158 H POC Glucose 142 H 194 H Lactic Acid Calcium 7.5 L Phosphorus Total Bilirubin AST ALT Total Creatine Kinase CK-MB (CK-2) Troponin T Total Protein 5.6 L Albumin 2.0 L Prealbumin HDL Cholesterol Salicylates Acetaminophen Crossmatch 10/21/18 10/21/18 10/22/18 17:05 20:37 05:38 WBC RBC 3.48 L Hgb 10.8 L Hct 31.7 L MCV MCHC RDW Plt Count 458 H Lymph % (Auto) Garza % (Auto) 10.5 H Garza # Seg Neutrophils % Seg Neuts % (Manual) Lymphocytes % (Manual) Monocytes % (Manual) Seg Neutrophils # Seg Neutrophils # Man Lymphocytes # (Manual) Monocytes # (Manual) APTT Heparin Anti-Xa Level POC ABG pH POC ABG pCO2 POC ABG pO2 Sodium Potassium Chloride Carbon Dioxide BUN Creatinine Glucose POC Glucose 167 H 182 H Lactic Acid Calcium Phosphorus Total Bilirubin AST ALT Total Creatine Kinase CK-MB (CK-2) Troponin T Total Protein Albumin Prealbumin HDL Cholesterol Salicylates Acetaminophen Crossmatch 10/22/18 10/22/18 10/22/18 05:38 07:48 12:08 WBC RBC Hgb Hct MCV MCHC RDW Plt Count Lymph % (Auto) Garza % (Auto) Garza # Seg Neutrophils % Seg Neuts % (Manual) Lymphocytes % (Manual) Monocytes % (Manual) Seg Neutrophils # Seg Neutrophils # Man Lymphocytes # (Manual) Monocytes # (Manual) APTT Heparin Anti-Xa Level POC ABG pH POC ABG pCO2 POC ABG pO2 Sodium Potassium Chloride Carbon Dioxide BUN Creatinine 0.5 L Glucose 146 H POC Glucose 130 H 167 H Lactic Acid Calcium 7.8 L Phosphorus Total Bilirubin AST 41 H ALT Total Creatine Kinase CK-MB (CK-2) Troponin T Total Protein 5.5 L Albumin 2.1 L Prealbumin HDL Cholesterol Salicylates Acetaminophen Crossmatch 10/22/18 10/22/18 10/23/18 16:45 21:42 04:38 WBC RBC Hgb 11.7 L Hct 34.7 L MCV MCHC RDW Plt Count 523 H Lymph % (Auto) Garza % (Auto) 8.7 H Garza # Seg Neutrophils % 71.6 H Seg Neuts % (Manual) Lymphocytes % (Manual) Monocytes % (Manual) Seg Neutrophils # Seg Neutrophils # Man Lymphocytes # (Manual) Monocytes # (Manual) APTT Heparin Anti-Xa Level POC ABG pH POC ABG pCO2 POC ABG pO2 Sodium Potassium Chloride Carbon Dioxide BUN Creatinine Glucose POC Glucose 113 H 134 H Lactic Acid Calcium Phosphorus Total Bilirubin AST ALT Total Creatine Kinase CK-MB (CK-2) Troponin T Total Protein Albumin Prealbumin HDL Cholesterol Salicylates Acetaminophen Crossmatch 10/23/18 10/23/18 10/23/18 04:38 07:56 11:15 WBC RBC Hgb Hct MCV MCHC RDW Plt Count Lymph % (Auto) Garza % (Auto) Garza # Seg Neutrophils % Seg Neuts % (Manual) Lymphocytes % (Manual) Monocytes % (Manual) Seg Neutrophils # Seg Neutrophils # Man Lymphocytes # (Manual) Monocytes # (Manual) APTT Heparin Anti-Xa Level POC ABG pH POC ABG pCO2 POC ABG pO2 Sodium Potassium Chloride Carbon Dioxide BUN 7 L Creatinine 0.5 L Glucose 150 H POC Glucose 123 H 212 H Lactic Acid Calcium 8.0 L Phosphorus Total Bilirubin AST 55 H ALT Total Creatine Kinase CK-MB (CK-2) Troponin T Total Protein 6.2 L Albumin 2.3 L Prealbumin HDL Cholesterol Salicylates Acetaminophen Crossmatch 10/23/18 10/23/18 10/24/18 16:06 22:01 05:56 WBC 11.8 H RBC 3.64 L Hgb 11.2 L Hct 33.4 L MCV MCHC RDW Plt Count 564 H Lymph % (Auto) 11.3 L Garza % (Auto) Garza # Seg Neutrophils % 80.2 H Seg Neuts % (Manual) Lymphocytes % (Manual) Monocytes % (Manual) Seg Neutrophils # 9.4 H Seg Neutrophils # Man Lymphocytes # (Manual) Monocytes # (Manual) APTT Heparin Anti-Xa Level POC ABG pH POC ABG pCO2 POC ABG pO2 Sodium Potassium Chloride Carbon Dioxide BUN Creatinine Glucose POC Glucose 152 H 235 H Lactic Acid Calcium Phosphorus Total Bilirubin AST ALT Total Creatine Kinase CK-MB (CK-2) Troponin T Total Protein Albumin Prealbumin HDL Cholesterol Salicylates Acetaminophen Crossmatch 10/24/18 10/24/18 10/24/18 05:56 07:52 11:58 WBC RBC Hgb Hct MCV MCHC RDW Plt Count Lymph % (Auto) Garza % (Auto) Garza # Seg Neutrophils % Seg Neuts % (Manual) Lymphocytes % (Manual) Monocytes % (Manual) Seg Neutrophils # Seg Neutrophils # Man Lymphocytes # (Manual) Monocytes # (Manual) APTT Heparin Anti-Xa Level POC ABG pH POC ABG pCO2 POC ABG pO2 Sodium Potassium Chloride Carbon Dioxide BUN Creatinine 0.5 L Glucose 175 H POC Glucose 156 H 238 H Lactic Acid Calcium 8.0 L Phosphorus Total Bilirubin AST 44 H ALT Total Creatine Kinase CK-MB (CK-2) Troponin T Total Protein 6.2 L Albumin 2.4 L Prealbumin HDL Cholesterol Salicylates Acetaminophen Crossmatch 10/24/18 10/24/18 10/25/18 16:20 22:13 07:53 WBC RBC Hgb Hct MCV MCHC RDW Plt Count Lymph % (Auto) Garza % (Auto) Garza # Seg Neutrophils % Seg Neuts % (Manual) Lymphocytes % (Manual) Monocytes % (Manual) Seg Neutrophils # Seg Neutrophils # Man Lymphocytes # (Manual) Monocytes # (Manual) APTT Heparin Anti-Xa Level POC ABG pH POC ABG pCO2 POC ABG pO2 Sodium Potassium Chloride Carbon Dioxide BUN Creatinine Glucose POC Glucose 60 L 261 H 211 H Lactic Acid Calcium Phosphorus Total Bilirubin AST ALT Total Creatine Kinase CK-MB (CK-2) Troponin T Total Protein Albumin Prealbumin HDL Cholesterol Salicylates Acetaminophen Crossmatch 10/25/18 10/25/18 10/25/18 11:03 16:02 22:45 WBC RBC Hgb Hct MCV MCHC RDW Plt Count Lymph % (Auto) Garza % (Auto) Garza # Seg Neutrophils % Seg Neuts % (Manual) Lymphocytes % (Manual) Monocytes % (Manual) Seg Neutrophils # Seg Neutrophils # Man Lymphocytes # (Manual) Monocytes # (Manual) APTT Heparin Anti-Xa Level POC ABG pH POC ABG pCO2 POC ABG pO2 Sodium Potassium Chloride Carbon Dioxide BUN Creatinine Glucose POC Glucose 137 H 186 H 140 H Lactic Acid Calcium Phosphorus Total Bilirubin AST ALT Total Creatine Kinase CK-MB (CK-2) Troponin T Total Protein Albumin Prealbumin HDL Cholesterol Salicylates Acetaminophen Crossmatch 10/26/18 10/26/18 10/26/18 08:13 10:08 11:28 WBC RBC Hgb Hct MCV MCHC RDW Plt Count Lymph % (Auto) Garza % (Auto) Garza # Seg Neutrophils % Seg Neuts % (Manual) Lymphocytes % (Manual) Monocytes % (Manual) Seg Neutrophils # Seg Neutrophils # Man Lymphocytes # (Manual) Monocytes # (Manual) APTT Heparin Anti-Xa Level POC ABG pH POC ABG pCO2 POC ABG pO2 Sodium Potassium Chloride Carbon Dioxide BUN Creatinine Glucose POC Glucose 144 H 110 H 201 H Lactic Acid Calcium Phosphorus Total Bilirubin AST ALT Total Creatine Kinase CK-MB (CK-2) Troponin T Total Protein Albumin Prealbumin HDL Cholesterol Salicylates Acetaminophen Crossmatch 10/26/18 10/26/18 10/27/18 16:36 22:29 07:34 WBC RBC Hgb Hct MCV MCHC RDW Plt Count Lymph % (Auto) Garza % (Auto) Garza # Seg Neutrophils % Seg Neuts % (Manual) Lymphocytes % (Manual) Monocytes % (Manual) Seg Neutrophils # Seg Neutrophils # Man Lymphocytes # (Manual) Monocytes # (Manual) APTT Heparin Anti-Xa Level POC ABG pH POC ABG pCO2 POC ABG pO2 Sodium Potassium Chloride Carbon Dioxide BUN Creatinine Glucose POC Glucose 147 H 302 H 182 H Lactic Acid Calcium Phosphorus Total Bilirubin AST ALT Total Creatine Kinase CK-MB (CK-2) Troponin T Total Protein Albumin Prealbumin HDL Cholesterol Salicylates Acetaminophen Crossmatch 10/27/18 10/27/18 10/27/18 11:57 13:33 14:55 WBC RBC Hgb Hct MCV MCHC RDW Plt Count 550 H Lymph % (Auto) Garza % (Auto) Garza # Seg Neutrophils % Seg Neuts % (Manual) Lymphocytes % (Manual) Monocytes % (Manual) Seg Neutrophils # Seg Neutrophils # Man Lymphocytes # (Manual) Monocytes # (Manual) APTT Heparin Anti-Xa Level POC ABG pH POC ABG pCO2 POC ABG pO2 Sodium Potassium Chloride Carbon Dioxide BUN Creatinine Glucose POC Glucose 209 H Lactic Acid Calcium Phosphorus Total Bilirubin AST ALT Total Creatine Kinase CK-MB (CK-2) Troponin T Total Protein Albumin Prealbumin HDL Cholesterol Salicylates Acetaminophen Crossmatch See Detail 10/27/18 10/27/18 10/28/18 17:09 21:45 07:45 WBC RBC Hgb Hct MCV MCHC RDW Plt Count Lymph % (Auto) Garza % (Auto) Garza # Seg Neutrophils % Seg Neuts % (Manual) Lymphocytes % (Manual) Monocytes % (Manual) Seg Neutrophils # Seg Neutrophils # Man Lymphocytes # (Manual) Monocytes # (Manual) APTT Heparin Anti-Xa Level POC ABG pH POC ABG pCO2 POC ABG pO2 Sodium Potassium Chloride Carbon Dioxide BUN Creatinine Glucose POC Glucose 233 H 136 H 201 H Lactic Acid Calcium Phosphorus Total Bilirubin AST ALT Total Creatine Kinase CK-MB (CK-2) Troponin T Total Protein Albumin Prealbumin HDL Cholesterol Salicylates Acetaminophen Crossmatch 10/28/18 10/28/18 10/28/18 11:17 16:34 19:51 WBC RBC Hgb Hct MCV MCHC RDW Plt Count Lymph % (Auto) Garza % (Auto) Garza # Seg Neutrophils % Seg Neuts % (Manual) Lymphocytes % (Manual) Monocytes % (Manual) Seg Neutrophils # Seg Neutrophils # Man Lymphocytes # (Manual) Monocytes # (Manual) APTT Heparin Anti-Xa Level < 0.10 L POC ABG pH POC ABG pCO2 POC ABG pO2 Sodium Potassium Chloride Carbon Dioxide BUN Creatinine Glucose POC Glucose 116 H 168 H Lactic Acid Calcium Phosphorus Total Bilirubin AST ALT Total Creatine Kinase CK-MB (CK-2) Troponin T Total Protein Albumin Prealbumin HDL Cholesterol Salicylates Acetaminophen Crossmatch 10/28/18 10/29/18 10/29/18 21:52 07:11 07:11 WBC RBC Hgb Hct MCV MCHC RDW Plt Count 470 H Lymph % (Auto) Garza % (Auto) Garza # Seg Neutrophils % Seg Neuts % (Manual) Lymphocytes % (Manual) Monocytes % (Manual) Seg Neutrophils # Seg Neutrophils # Man Lymphocytes # (Manual) Monocytes # (Manual) APTT Heparin Anti-Xa Level 0.13 L POC ABG pH POC ABG pCO2 POC ABG pO2 Sodium Potassium Chloride Carbon Dioxide BUN Creatinine Glucose POC Glucose 159 H Lactic Acid Calcium Phosphorus Total Bilirubin AST ALT Total Creatine Kinase CK-MB (CK-2) Troponin T Total Protein Albumin Prealbumin HDL Cholesterol Salicylates Acetaminophen Crossmatch 10/29/18 10/29/18 10/29/18 07:11 07:43 11:29 WBC RBC Hgb Hct MCV MCHC RDW Plt Count Lymph % (Auto) Garza % (Auto) Garza # Seg Neutrophils % Seg Neuts % (Manual) Lymphocytes % (Manual) Monocytes % (Manual) Seg Neutrophils # Seg Neutrophils # Man Lymphocytes # (Manual) Monocytes # (Manual) APTT Heparin Anti-Xa Level POC ABG pH POC ABG pCO2 POC ABG pO2 Sodium Potassium Chloride Carbon Dioxide BUN 7 L Creatinine 0.5 L Glucose 122 H POC Glucose 147 H 165 H Lactic Acid Calcium 8.2 L Phosphorus Total Bilirubin AST ALT Total Creatine Kinase CK-MB (CK-2) Troponin T Total Protein Albumin Prealbumin HDL Cholesterol Salicylates Acetaminophen Crossmatch 10/29/18 10/29/18 10/30/18 19:50 22:11 00:11 WBC RBC Hgb Hct MCV MCHC RDW Plt Count Lymph % (Auto) Garza % (Auto) Garza # Seg Neutrophils % Seg Neuts % (Manual) Lymphocytes % (Manual) Monocytes % (Manual) Seg Neutrophils # Seg Neutrophils # Man Lymphocytes # (Manual) Monocytes # (Manual) APTT Heparin Anti-Xa Level 0.25 L POC ABG pH POC ABG pCO2 POC ABG pO2 Sodium Potassium Chloride Carbon Dioxide BUN Creatinine Glucose POC Glucose 166 H 173 H Lactic Acid Calcium Phosphorus Total Bilirubin AST ALT Total Creatine Kinase CK-MB (CK-2) Troponin T Total Protein Albumin Prealbumin HDL Cholesterol Salicylates Acetaminophen Crossmatch 10/30/18 10/30/18 10/30/18 04:22 04:22 07:47 WBC 27.0 H RBC 3.16 L Hgb 10.0 L Hct 28.8 L D MCV MCHC 35 H RDW Plt Count Lymph % (Auto) Garza % (Auto) Garza # Seg Neutrophils % Seg Neuts % (Manual) Lymphocytes % (Manual) 1.5 L Monocytes % (Manual) Seg Neutrophils # Seg Neutrophils # Man 18.6 H Lymphocytes # (Manual) 0.4 L Monocytes # (Manual) APTT Heparin Anti-Xa Level POC ABG pH POC ABG pCO2 POC ABG pO2 Sodium Potassium Chloride Carbon Dioxide BUN Creatinine Glucose 224 H POC Glucose 168 H Lactic Acid Calcium 7.5 L Phosphorus Total Bilirubin AST ALT Total Creatine Kinase CK-MB (CK-2) Troponin T Total Protein Albumin Prealbumin HDL Cholesterol Salicylates Acetaminophen Crossmatch 10/30/18 10/30/18 10/30/18 07:55 11:20 16:41 WBC RBC Hgb Hct MCV MCHC RDW Plt Count Lymph % (Auto) Garza % (Auto) Garza # Seg Neutrophils % Seg Neuts % (Manual) Lymphocytes % (Manual) Monocytes % (Manual) Seg Neutrophils # Seg Neutrophils # Man Lymphocytes # (Manual) Monocytes # (Manual) APTT Heparin Anti-Xa Level < 0.10 L POC ABG pH POC ABG pCO2 POC ABG pO2 Sodium Potassium Chloride Carbon Dioxide BUN Creatinine Glucose POC Glucose 165 H 142 H Lactic Acid Calcium Phosphorus Total Bilirubin AST ALT Total Creatine Kinase CK-MB (CK-2) Troponin T Total Protein Albumin Prealbumin HDL Cholesterol Salicylates Acetaminophen Crossmatch 10/30/18 10/30/18 10/31/18 20:51 21:20 05:21 WBC RBC Hgb 9.0 L Hct 26.6 L MCV MCHC RDW Plt Count Lymph % (Auto) Garza % (Auto) Garza # Seg Neutrophils % Seg Neuts % (Manual) Lymphocytes % (Manual) Monocytes % (Manual) Seg Neutrophils # Seg Neutrophils # Man Lymphocytes # (Manual) Monocytes # (Manual) APTT Heparin Anti-Xa Level < 0.10 L POC ABG pH POC ABG pCO2 POC ABG pO2 Sodium Potassium Chloride Carbon Dioxide BUN Creatinine Glucose POC Glucose 136 H Lactic Acid Calcium Phosphorus Total Bilirubin AST ALT Total Creatine Kinase CK-MB (CK-2) Troponin T Total Protein Albumin Prealbumin HDL Cholesterol Salicylates Acetaminophen Crossmatch 10/31/18 10/31/18 10/31/18 08:07 10:19 12:12 WBC RBC Hgb Hct MCV MCHC RDW Plt Count Lymph % (Auto) Garza % (Auto) Garza # Seg Neutrophils % Seg Neuts % (Manual) Lymphocytes % (Manual) Monocytes % (Manual) Seg Neutrophils # Seg Neutrophils # Man Lymphocytes # (Manual) Monocytes # (Manual) APTT Heparin Anti-Xa Level POC ABG pH POC ABG pCO2 POC ABG pO2 Sodium Potassium Chloride Carbon Dioxide BUN Creatinine Glucose POC Glucose 155 H 194 H Lactic Acid Calcium Phosphorus Total Bilirubin AST ALT Total Creatine Kinase CK-MB (CK-2) Troponin T Total Protein Albumin Prealbumin HDL Cholesterol Salicylates Acetaminophen Crossmatch See Detail 10/31/18 10/31/18 10/31/18 16:07 16:56 21:14 WBC RBC Hgb Hct MCV MCHC RDW Plt Count Lymph % (Auto) Garza % (Auto) Garza # Seg Neutrophils % Seg Neuts % (Manual) Lymphocytes % (Manual) Monocytes % (Manual) Seg Neutrophils # Seg Neutrophils # Man Lymphocytes # (Manual) Monocytes # (Manual) APTT Heparin Anti-Xa Level 1.20 H POC ABG pH POC ABG pCO2 POC ABG pO2 Sodium Potassium Chloride Carbon Dioxide BUN Creatinine Glucose POC Glucose 354 H 234 H Lactic Acid Calcium Phosphorus Total Bilirubin AST ALT Total Creatine Kinase CK-MB (CK-2) Troponin T Total Protein Albumin Prealbumin HDL Cholesterol Salicylates Acetaminophen Crossmatch 11/01/18 11/01/18 11/01/18 00:52 05:52 05:52 WBC 12.5 H RBC 2.95 L Hgb 9.1 L Hct 27.4 L MCV MCHC RDW 15.3 H Plt Count Lymph % (Auto) Garza % (Auto) Garza # Seg Neutrophils % Seg Neuts % (Manual) Lymphocytes % (Manual) Monocytes % (Manual) Seg Neutrophils # Seg Neutrophils # Man Lymphocytes # (Manual) Monocytes # (Manual) APTT Heparin Anti-Xa Level 1.53 H POC ABG pH POC ABG pCO2 POC ABG pO2 Sodium Potassium Chloride Carbon Dioxide BUN Creatinine 0.5 L Glucose 169 H POC Glucose Lactic Acid Calcium 8.3 L Phosphorus Total Bilirubin AST ALT Total Creatine Kinase CK-MB (CK-2) Troponin T Total Protein 6.2 L Albumin 2.3 L Prealbumin HDL Cholesterol Salicylates Acetaminophen Crossmatch 11/01/18 11/01/18 11/01/18 08:17 10:57 11:38 WBC RBC Hgb Hct MCV MCHC RDW Plt Count Lymph % (Auto) Garza % (Auto) Garza # Seg Neutrophils % Seg Neuts % (Manual) Lymphocytes % (Manual) Monocytes % (Manual) Seg Neutrophils # Seg Neutrophils # Man Lymphocytes # (Manual) Monocytes # (Manual) APTT Heparin Anti-Xa Level 1.05 H POC ABG pH POC ABG pCO2 POC ABG pO2 Sodium Potassium Chloride Carbon Dioxide BUN Creatinine Glucose POC Glucose 158 H 133 H Lactic Acid Calcium Phosphorus Total Bilirubin AST ALT Total Creatine Kinase CK-MB (CK-2) Troponin T Total Protein Albumin Prealbumin HDL Cholesterol Salicylates Acetaminophen Crossmatch 11/01/18 11/01/18 11/02/18 17:08 21:23 04:56 WBC RBC 3.02 L Hgb 9.5 L Hct 28.0 L MCV MCHC RDW Plt Count Lymph % (Auto) Garza % (Auto) Garza # Seg Neutrophils % Seg Neuts % (Manual) Lymphocytes % (Manual) Monocytes % (Manual) Seg Neutrophils # Seg Neutrophils # Man Lymphocytes # (Manual) Monocytes # (Manual) APTT Heparin Anti-Xa Level POC ABG pH POC ABG pCO2 POC ABG pO2 Sodium Potassium Chloride Carbon Dioxide BUN Creatinine Glucose POC Glucose 156 H 213 H Lactic Acid Calcium Phosphorus Total Bilirubin AST ALT Total Creatine Kinase CK-MB (CK-2) Troponin T Total Protein Albumin Prealbumin HDL Cholesterol Salicylates Acetaminophen Crossmatch 11/02/18 11/02/18 11/02/18 04:56 08:38 11:23 WBC RBC Hgb Hct MCV MCHC RDW Plt Count Lymph % (Auto) Garza % (Auto) Garza # Seg Neutrophils % Seg Neuts % (Manual) Lymphocytes % (Manual) Monocytes % (Manual) Seg Neutrophils # Seg Neutrophils # Man Lymphocytes # (Manual) Monocytes # (Manual) APTT Heparin Anti-Xa Level POC ABG pH POC ABG pCO2 POC ABG pO2 Sodium Potassium Chloride Carbon Dioxide BUN Creatinine 0.5 L Glucose 141 H POC Glucose 173 H 272 H Lactic Acid Calcium 8.2 L Phosphorus Total Bilirubin AST 43 H ALT Total Creatine Kinase CK-MB (CK-2) Troponin T Total Protein 6.1 L Albumin 2.2 L Prealbumin HDL Cholesterol Salicylates Acetaminophen Crossmatch 11/02/18 11/03/18 11/03/18 22:16 04:38 04:38 WBC 11.6 H RBC 3.20 L Hgb 9.8 L Hct 29.2 L MCV MCHC RDW Plt Count Lymph % (Auto) Garza % (Auto) Garza # Seg Neutrophils % Seg Neuts % (Manual) Lymphocytes % (Manual) Monocytes % (Manual) Seg Neutrophils # Seg Neutrophils # Man Lymphocytes # (Manual) Monocytes # (Manual) APTT Heparin Anti-Xa Level POC ABG pH POC ABG pCO2 POC ABG pO2 Sodium 135 L Potassium Chloride Carbon Dioxide BUN Creatinine 0.5 L Glucose 160 H POC Glucose 182 H Lactic Acid Calcium Phosphorus Total Bilirubin AST 46 H ALT Total Creatine Kinase CK-MB (CK-2) Troponin T Total Protein Albumin 2.3 L Prealbumin HDL Cholesterol Salicylates Acetaminophen Crossmatch 11/03/18 11/03/18 11/03/18 07:52 10:59 18:10 WBC RBC Hgb Hct MCV MCHC RDW Plt Count Lymph % (Auto) Garza % (Auto) Garza # Seg Neutrophils % Seg Neuts % (Manual) Lymphocytes % (Manual) Monocytes % (Manual) Seg Neutrophils # Seg Neutrophils # Man Lymphocytes # (Manual) Monocytes # (Manual) APTT Heparin Anti-Xa Level POC ABG pH POC ABG pCO2 POC ABG pO2 Sodium Potassium Chloride Carbon Dioxide BUN Creatinine Glucose POC Glucose 180 H 159 H 169 H Lactic Acid Calcium Phosphorus Total Bilirubin AST ALT Total Creatine Kinase CK-MB (CK-2) Troponin T Total Protein Albumin Prealbumin HDL Cholesterol Salicylates Acetaminophen Crossmatch 11/04/18 11/04/18 11/04/18 07:46 11:42 15:45 WBC 11.5 H RBC 3.41 L Hgb 10.4 L Hct 30.8 L MCV MCHC RDW Plt Count Lymph % (Auto) Garza % (Auto) Garza # Seg Neutrophils % Seg Neuts % (Manual) Lymphocytes % (Manual) Monocytes % (Manual) Seg Neutrophils # Seg Neutrophils # Man Lymphocytes # (Manual) Monocytes # (Manual) APTT Heparin Anti-Xa Level POC ABG pH POC ABG pCO2 POC ABG pO2 Sodium Potassium Chloride Carbon Dioxide BUN Creatinine Glucose POC Glucose 160 H 149 H Lactic Acid Calcium Phosphorus Total Bilirubin AST ALT Total Creatine Kinase CK-MB (CK-2) Troponin T Total Protein Albumin Prealbumin HDL Cholesterol Salicylates Acetaminophen Crossmatch 11/04/18 11/04/18 11/04/18 15:45 15:45 16:41 WBC RBC Hgb Hct MCV MCHC RDW Plt Count Lymph % (Auto) Garza % (Auto) Garza # Seg Neutrophils % Seg Neuts % (Manual) Lymphocytes % (Manual) Monocytes % (Manual) Seg Neutrophils # Seg Neutrophils # Man Lymphocytes # (Manual) Monocytes # (Manual) APTT Heparin Anti-Xa Level POC ABG pH POC ABG pCO2 POC ABG pO2 Sodium 133 L Potassium Chloride 95.6 L Carbon Dioxide BUN Creatinine 0.5 L Glucose 163 H POC Glucose 157 H Lactic Acid Calcium Phosphorus Total Bilirubin AST ALT Total Creatine Kinase CK-MB (CK-2) Troponin T Total Protein Albumin 2.6 L Prealbumin 0.073 L HDL Cholesterol Salicylates Acetaminophen Crossmatch 11/04/18 11/05/18 11/05/18 21:59 08:51 12:13 WBC RBC Hgb Hct MCV MCHC RDW Plt Count Lymph % (Auto) Garza % (Auto) Garza # Seg Neutrophils % Seg Neuts % (Manual) Lymphocytes % (Manual) Monocytes % (Manual) Seg Neutrophils # Seg Neutrophils # Man Lymphocytes # (Manual) Monocytes # (Manual) APTT Heparin Anti-Xa Level POC ABG pH POC ABG pCO2 POC ABG pO2 Sodium Potassium Chloride Carbon Dioxide BUN Creatinine Glucose POC Glucose 195 H 187 H 149 H Lactic Acid Calcium Phosphorus Total Bilirubin AST ALT Total Creatine Kinase CK-MB (CK-2) Troponin T Total Protein Albumin Prealbumin HDL Cholesterol Salicylates Acetaminophen Crossmatch 11/05/18 11/05/18 11/06/18 17:15 20:37 07:00 WBC RBC 3.48 L Hgb 11.2 L Hct 31.8 L MCV MCHC 35 H RDW Plt Count Lymph % (Auto) Garza % (Auto) Garza # Seg Neutrophils % Seg Neuts % (Manual) Lymphocytes % (Manual) Monocytes % (Manual) Seg Neutrophils # Seg Neutrophils # Man Lymphocytes # (Manual) Monocytes # (Manual) APTT Heparin Anti-Xa Level POC ABG pH POC ABG pCO2 POC ABG pO2 Sodium Potassium Chloride Carbon Dioxide BUN Creatinine Glucose POC Glucose 281 H 203 H Lactic Acid Calcium Phosphorus Total Bilirubin AST ALT Total Creatine Kinase CK-MB (CK-2) Troponin T Total Protein Albumin Prealbumin HDL Cholesterol Salicylates Acetaminophen Crossmatch 11/06/18 11/06/18 11/06/18 07:00 07:31 12:45 WBC RBC Hgb Hct MCV MCHC RDW Plt Count Lymph % (Auto) Garza % (Auto) Garza # Seg Neutrophils % Seg Neuts % (Manual) Lymphocytes % (Manual) Monocytes % (Manual) Seg Neutrophils # Seg Neutrophils # Man Lymphocytes # (Manual) Monocytes # (Manual) APTT Heparin Anti-Xa Level POC ABG pH POC ABG pCO2 POC ABG pO2 Sodium 135 L Potassium Chloride 97.3 L Carbon Dioxide BUN Creatinine 0.5 L Glucose 163 H POC Glucose 215 H 183 H Lactic Acid Calcium Phosphorus Total Bilirubin AST ALT Total Creatine Kinase CK-MB (CK-2) Troponin T Total Protein Albumin Prealbumin HDL Cholesterol Salicylates Acetaminophen Crossmatch Allied health notes reviewed: nursing
[2018-11-07] MEDS: DUONEB *Not for PRN Use IH SCH ×3 (08:06→19:31)
--- NOTE | 2018-11-07 08:43 | Progress Note ---
Assessment and Plan Patient will need evaluation of his devascularized skin along the lateral aspect of his left stump. We will follow, the patient may ultimately require debridement of this area. The patient will need evaluation and treatment with physical therapy as well as evaluation and treatment with wound care. Subjective Date of service: 11/07/18 Principal diagnosis: Ac hypercapnic hypoxemic Resp failure; Drug OD; AE-COPD; NINOSKA; Seizures Interval history: Patient with a history of arterial occlusion status post left BKA and right revascularization. The patient's lateral aspect of his left BKA is developing devascularized skin. No significant drainage from the staple line. The leg is warm to below the knee. Right leg is warm to the foot. Objective - Constitutional Vitals: Vital Signs - 12hr 11/06/18 11/06/18 11/06/18 22:00 22:40 22:46 Temperature 98.6 F Pulse Rate 83 94 H Respiratory 18 12 Rate Respiratory Rate [Right Arm ] Blood Pressure 103/63 101/61 O2 Sat by Pulse 95 Oximetry 11/06/18 11/07/18 11/07/18 22:52 04:00 05:38 Temperature 98.2 F Pulse Rate Respiratory 18 12 Rate Respiratory 18 Rate [Right Arm ] Blood Pressure 102/68 O2 Sat by Pulse Oximetry General appearance: Present: cachectic - EENT Eyes: PERRL ENT: hearing intact - Neck Neck: supple, normal ROM - Respiratory Respiratory effort: normal Extremities: abnormal - Gastrointestinal General gastrointestinal: Present: deferred Rectal Exam: deferred - Genitourinary Male genitourinary: deferred - Psychiatric Psychiatric: appropriate mood/affect, cooperative - Labs CBC & Chem 7: 11/06/18 07:00 11/06/18 07:00 Labs: Abnormal lab results 11/06/18 11/06/18 11/06/18 Range/Units 12:45 17:47 21:05 POC Glucose 183 H 141 H 223 H (70-105) 11/07/18 Range/Units 07:42 POC Glucose 168 H (70-105) Medications & Allergies - Medications Allergies/Adverse Reactions: Allergies No Known Allergies Allergy (Verified 10/31/14 11:20) Home Medications: Home Medications Medication Instructions Recorded Confirmed Last Taken Type Gabapentin [Neurontin] 90 mg PO Q8HR 04/22/15 11/01/18 04/21/15 History ALPRAZolam [Xanax TAB] 1 mg PO TID PRN #30 tablet 03/28/16 11/01/18 Unknown Rx Albuterol Sulfate [Ventolin HFA] 2 puff IH Q4H PRN #1 hfa.aer.ad 03/28/16 11/01/18 Unknown Rx Ciprofloxacin HCl [Ciprofloxacin 500 mg PO Q12HR #30 tab 03/28/16 11/01/18 Unknown Rx TAB] Citalopram [celeXA] 10 mg PO QDAY #30 tablet 03/28/16 11/01/18 Unknown Rx Nicotine [Habitrol] 14 mg TD QDAY #30 patch 03/28/16 11/01/18 Unknown Rx Sitagliptin Phos/Metformin HCl 1 tab PO QDAY #30 tbmp.24hr 03/28/16 11/01/18 Unknown Rx [Janumet XR 100-1,000 mg] oxyCODONE /ACETAMINOPHEN [Percocet 1 tab PO Q6H PRN #60 tablet 03/28/16 11/01/18 Unknown Rx 5/325 mg] Active Medications: Generic Name Dose Route Start Last Admin Trade Name Freq PRN Reason Stop Dose Admin Acetaminophen 650 mg 10/11/18 04:04 10/21/18 22:21 Tylenol PO 650 mg Q4H PRN Administration Pain MILD(1-3)/Fever >100.5/HOLLINS Albuterol 2.5 mg 10/19/18 00:54 Proventil IH Q4HRT PRN Shortness Of Breath Albuterol/Ipratropium 1 ampul 10/19/18 08:00 11/07/18 08:06 Duoneb *Not For Prn Use* IH 1 ampul TIDRT ISAAC Administration Alprazolam 1 mg 10/20/18 13:06 11/06/18 08:01 Xanax PO 1 mg TID PRN Administration Anxiety Apixaban 10 mg 11/01/18 16:00 11/06/18 22:45 Eliquis PO 11/08/18 10:01 10 mg Q12HR ISAAC Administration Protocol Apixaban 5 mg 11/08/18 22:00 Eliquis PO Q12HR ISAAC Protocol Aspirin 81 mg 11/01/18 16:00 11/06/18 09:08 Halfprin Ec PO 81 mg QDAY ISAAC Administration Buprenorphine HCl 2 each 11/05/18 10:00 11/06/18 11:10 Suboxone 2 Mg-0.5 Mg SL 2 each QDAY ISAAC Administration Citalopram Hydrobromide 20 mg 11/05/18 10:00 11/06/18 09:08 Celexa PO 20 mg QDAY ISAAC Administration Dextrose 0 ml 10/11/18 03:57 10/11/18 10:18 D50w (25gm) Syringe IV 10 ml PRN PRN Administration Hypoglycemia Docusate Sodium 100 mg 11/04/18 22:00 11/06/18 22:44 Colace PO 100 mg BID ISAAC Administration Famotidine 20 mg 10/15/18 10:00 11/06/18 22:44 Pepcid PO 20 mg BID ISAAC Administration Insulin Human Regular 0 units 10/17/18 11:30 11/06/18 22:44 Humulin R SUB-Q 4 units ACHS ISAAC Administration Protocol Metoprolol Tartrate 25 mg 10/18/18 22:00 11/06/18 22:46 Lopressor PO Not Given BID ISAAC Metoprolol Tartrate 2.5 mg 10/18/18 18:51 10/18/18 22:19 Lopressor IV 2.5 mg Q6H PRN Administration Tachyarrhythmias Naloxone HCl 0.1 mg 10/29/18 16:03 Narcan 0.4 Mg/1 Ml IV Q2MIN PRN Res Rate </= 8 or 02 SAT < 92% Ondansetron HCl 4 mg 10/11/18 04:04 11/01/18 22:12 Zofran IV 4 mg Q8H PRN Administration Nausea And Vomiting Oxycodone/Acetaminophen 1 tab 10/18/18 13:45 11/06/18 22:52 Percocet 5/325 PO 1 tab Q6H PRN Administration Pain, Moderate (4-6)
[2018-11-07] MEDS: ELIQUIS PO SCH ×2 (09:06→22:34)
[2018-11-07] MEDS: LOPRESSOR PO SCH ×2 (09:06→22:39)
[2018-11-07] MEDS: COLACE PO SCH ×2 (09:06→22:33)
[2018-11-07] MEDS: celeXA PO SCH (09:07)
[2018-11-07] MEDS: PEPCID PO SCH ×2 (09:07→22:34)
[2018-11-07] MEDS: HALFPRIN EC PO SCH (09:07)
[2018-11-07] MEDS: PERCOCET 5/325 PO PRN ×2 (09:07→17:22)
[2018-11-07] MEDS: HumuLIN R SUB-Q SCH ×4 (09:07→22:49)
[2018-11-07] MEDS: SUBOXONE 2 MG-0.5 MG SL SCH (11:41)
--- NOTE | 2018-11-07 12:35 | Progress Note ---
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 followed by revascularization right leg on 10/31/18. Vascular surgery feels the patient will need evaluation of his devascularized skin along the lateral aspect of his left stump. We will follow, the patient may ultimately require debridement of this area. -Acute/subacute right CVA, Initial CT head, no acute finding, 10/13/18 found to have left-sided weakness, MRI brain showed numerous acute/subacute multilobar infarcts involving the cerebrum and cerebellum including Hemorrhagic transformation of the right frontal and biparietal lobes, was Not a candidate for tPA, monitor off aspirin per teleneurology, QUIQUE ; no thrombus or shunt, Speech recommended pureed diet -Severe sepsis with shock; present on admission Probably due to LLL aspiration pneumonia, completed total 7 days of antibiotics, off vasopressors -Paroxysmal atrial fibrillation. on Eliquis Cardiology is following -LLL pneumonia: completed treatment -Acute respiratory failure with hypoxia and hypercapnia: Requiring intubation, s/p extubation, treat with nebs and supplemental O2 as needed -DKA, resolved: cont SSI for now, diabetic diet -Acute toxic/metabolic encephalopathy, improved -Seizure disorder; seizure precautions, no new episodes of seizure, Ativan when necessary, neurology did not recommend antiepileptic medications -Elevated troponin/NSTEMI type 2, Echocardiogram for further evaluation - Ef 25- 30%, Cardiology consulted, medical Mx for now, -Acute systolic CHF, Ef 25-30%, anti-failure medications, Cardiology is following -ARF. Etiology secondary to ATN and vasomotor nephropathy, poa, resolved -Hyperkalemia, resolved -Abnormal LFT, Probably due to sepsis, resolving and chronic hepatitis C virus infection, Abdominal US showed no sign of cirrhosis: monitor cmp -Anemia, appears acute on chronic AOCD: monitor closely on iv heparin drip -Severe protein calorie malnutrition, bmi 14.8; nutrition supplements, Dietitian consulted -DVT prophylaxis with Eliquis -GI prophylaxis with famotidine -Tobacco abuse. Patient with a long smoking history of one pack per day or more since age 9. Patient was counseled on smoking cessation. -Disposition: continue inpatient care. Possible rehab vs Subacute rehab placement==>Physical therapy recommended Subacute Rehab but re-evaluation pending. History Interval history: Patient is a 58 yo man with a history of COPD, DM, hypertension, asthma, peripheral neuropathy, chronic hepatitis C virus, panic attack. anxiety disorder, polysubstance abuse including alcohol, cocaine and heroin who presented to [facility] ED on 10/11/18 with AMS. He was diagnosis with septic shock due to pneumonia, placed on abx and vasopressors. He was also diagnosis with DKA/respiratory failure/Status epilepticus/ARF. Patient s/p left BKA, right open thrombectomy and aortic stenting and bilateral common iliac artery stenting but right EIA occluded requiring another open thrombectomy and stenting of the right iliac system. Vascular surgery felt patient will need evaluation of his devascularized skin along the lateral aspect of his left stump. The patient may ultimately require debridement of this area. No new issues overnight. Hospitalist Physical - Constitutional Vitals: Temp Pulse Resp BP Pulse Ox 98.2 F 88 18 102/68 94 11/07/18 05:38 11/07/18 08:18 11/07/18 08:18 11/07/18 05:38 11/07/18 09:40 General appearance: Present: cachectic - EENT Eyes: Present: PERRL, EOM intact ENT: hearing intact, clear oral mucosa, dentition normal - Neck Neck: Present: supple, normal ROM - Respiratory Respiratory effort: normal Respiratory: bilateral: CTA - Cardiovascular Rhythm: regular Heart Sounds: Present: S1 & S2. Absent: gallop, rub - Extremities Extremities: no ischemia, No edema, Full ROM - Abdominal General gastrointestinal: soft, non-tender, non-distended, normal bowel sounds - Integumentary Integumentary: Present: clear, warm, dry - Neurologic Neurologic: CNII-XII intact, moves all extremities Results - Labs CBC & Chem 7: 11/06/18 07:00 11/06/18 07:00 Labs: Laboratory Last Values WBC 10.0 K/mm3 (4.5-11.0) 11/06/18 07:00 RBC 3.48 M/mm3 (3.65-5.03) L 11/06/18 07:00 Hgb 11.2 gm/dl (11.8-15.2) L 11/06/18 07:00 Hct 31.8 % (35.5-45.6) L 11/06/18 07:00 MCV 91 fl (84-94) 11/06/18 07:00 MCH 32 pg (28-32) 11/06/18 07:00 MCHC 35 % (32-34) H 11/06/18 07:00 RDW 15.0 % (13.2-15.2) 11/06/18 07:00 Plt Count 399 K/mm3 (140-440) 11/06/18 07:00 Lymph % (Auto) 11.3 % (13.4-35.0) L 10/24/18 05:56 [place] % (Auto) 7.1 % (0.0-7.3) 10/24/18 05:56 Eos % (Auto) 1.0 % (0.0-4.3) 10/24/18 05:56 Baso % (Auto) 0.4 % (0.0-1.8) 10/24/18 05:56 Lymph # 1.3 K/mm3 (1.2-5.4) 10/24/18 05:56 [place] # 0.8 K/mm3 (0.0-0.8) 10/24/18 05:56 Eos # 0.1 K/mm3 (0.0-0.4) 10/24/18 05:56 Baso # 0.0 K/mm3 (0.0-0.1) 10/24/18 05:56 Add Manual Diff Complete 10/30/18 04:22 Total Counted 200 10/30/18 04:22 Seg Neutrophils % Siderographist 10/30/18 04:22 Seg Neuts % (Manual) 69.0 % (40.0-70.0) 10/30/18 04:22 26.0 % 10/30/18 04:22 1.5 % (13.4-35.0) L 10/30/18 04:22 Reactive Lymphs % (Man) 0 % 10/30/18 04:22 2.0 % (0.0-7.3) 10/30/18 04:22 0 % (0.0-4.3) 10/30/18 04:22 0 % (0.0-1.8) 10/30/18 04:22 1.0 % 10/30/18 04:22 0.5 % 10/30/18 04:22 0 % 10/30/18 04:22 0 % 10/30/18 04:22 Nucleated RBC % Not Reportable 10/30/18 04:22 Seg Neutrophils # 9.4 K/mm3 (1.8-7.7) H 10/24/18 05:56 Seg Neutrophils # Man 18.6 K/mm3 (1.8-7.7) H 10/30/18 04:22 Band Neutrophils # 7.0 K/mm3 10/30/18 04:22 0.4 K/mm3 (1.2-5.4) L 10/30/18 04:22 Abs React Lymphs (Man) 0.0 K/mm3 10/30/18 04:22 0.5 K/mm3 (0.0-0.8) 10/30/18 04:22 0.0 K/mm3 (0.0-0.4) 10/30/18 04:22 0.0 K/mm3 (0.0-0.1) 10/30/18 04:22 0.3 K/mm3 10/30/18 04:22 0.1 K/mm3 10/30/18 04:22 0.0 K/mm3 10/30/18 04:22 Blast Cells # 0.0 K/mm3 10/30/18 04:22 Pathologist Review 10/11/18 00:16 WBC Morphology Not Reportable 10/30/18 04:22 WBC Morphology TNR 10/30/18 04:22 Hypersegmented Neuts Not Reportable 10/30/18 04:22 Hyposegmented Neuts Not Reportable 10/30/18 04:22 Hypogranular Neuts Not Reportable 10/30/18 04:22 Not Reportable 10/30/18 04:22 Not Reportable 10/30/18 04:22 Not Reportable 10/30/18 04:22 Not Reportable 10/30/18 04:22 Not Reportable 10/30/18 04:22 Not Reportable 10/30/18 04:22 Consistent w auto 10/30/18 04:22 Not Reportable 10/30/18 04:22 Plt Clumps, EDTA Not Reportable 10/30/18 04:22 Not Reportable 10/30/18 04:22 Not Reportable 10/30/18 04:22 Not Reportable 10/30/18 04:22 Plt Morphology Comment Not Reportable 10/30/18 04:22 RBC Morphology Not Reportable 10/30/18 04:22 Dimorphic RBCs Not Reportable 10/30/18 04:22 Not Reportable 10/30/18 04:22 Not Reportable 10/30/18 04:22 Not Reportable 10/30/18 04:22 Not Reportable 10/30/18 04:22 Not Reportable 10/30/18 04:22 Not Reportable 10/30/18 04:22 Not Reportable 10/30/18 04:22 Not Reportable 10/30/18 04:22 Not Reportable 10/30/18 04:22 Not Reportable 10/30/18 04:22 Not Reportable 10/30/18 04:22 Not Reportable 10/30/18 04:22 Not Reportable 10/30/18 04:22 Not Reportable 10/30/18 04:22 Not Reportable 10/30/18 04:22 Not Reportable 10/30/18 04:22 Not Reportable 10/30/18 04:22 Not Reportable 10/30/18 04:22 Not Reportable 10/30/18 04:22 Acanthocytes (Spur) Not Reportable 10/30/18 04:22 Rouleaux Not Reportable 10/30/18 04:22 Not Reportable 10/30/18 04:22 Not Reportable 10/30/18 04:22 Not Reportable 10/30/18 04:22 Not Reportable 10/30/18 04:22 Hem Pathologist Commnt No 10/30/18 04:22 PT 13.9 Sec. (12.2-14.9) 10/29/18 07:11 INR 1.01 (0.87-1.13) 10/29/18 07:11 APTT 30.3 Sec. (24.2-36.6) 10/27/18 13:33 Heparin Anti-Xa Level 1.05 U.I./ml (0.3-0.7) H 11/01/18 11:38 Heparin Anti-Xa, Unfract Negative (Negative) 10/15/18 12:00 POC ABG pH 7.393 (7.35-7.45) 10/16/18 12:51 POC ABG pCO2 48.9 (35-45) H 10/16/18 12:51 POC ABG pO2 92 (80-105) 10/16/18 12:51 POC ABG HCO3 29.8 (22-26 mml/L) 10/16/18 12:51 POC ABG Total CO2 31 (23-27mmol/L) 10/16/18 12:51 POC ABG O2 Sat 97 10/16/18 12:51 POC ABG Base Excess 5 ((-2) - (+3)mmol/L) 10/16/18 12:51 35 % 10/16/18 12:51 Sodium 135 mmol/L (137-145) L 11/06/18 07:00 Potassium 4.0 mmol/L (3.6-5.0) 11/06/18 07:00 Chloride 97.3 mmol/L (98-107) L 11/06/18 07:00 Carbon Dioxide 29 mmol/L (22-30) 11/06/18 07:00 13 mmol/L 11/06/18 07:00 BUN 15 mg/dL (9-20) 11/06/18 07:00 0.5 mg/dL (0.8-1.5) L 11/06/18 07:00 Estimated GFR > 60 ml/min 11/06/18 07:00 30 % 11/06/18 07:00 Glucose 163 mg/dL (75-100) H 11/06/18 07:00 POC Glucose 120 (70-105) H 11/07/18 11:37 Lactic Acid 2.70 mmol/L (0.7-2.0) H* 10/11/18 12:30 Calcium 8.5 mg/dL (8.4-10.2) 11/06/18 07:00 Phosphorus 2.80 mg/dL (2.5-4.5) 10/21/18 04:59 Magnesium 1.70 mg/dL (1.7-2.3) 11/01/18 05:52 0.70 mg/dL (0.1-1.2) 11/04/18 15:45 AST 38 units/L (5-40) 11/04/18 15:45 ALT 23 units/L (7-56) 11/04/18 15:45 54 units/L (35-129) 11/04/18 15:45 3647 units/L (55-170) H 10/12/18 04:04 CK-MB (CK-2) 48.3 ng/mL (0.0-4.0) H 10/12/18 04:04 CK-MB (CK-2) Rel Index 1.3 (0-4) 10/12/18 04:04 0.816 ng/mL (0.00-0.029) H* 10/13/18 16:15 6.8 g/dL (6.3-8.2) 11/04/18 15:45 2.6 g/dL (3.9-5) L 11/04/18 15:45 0.6 % 11/04/18 15:45 0.073 g/L (0.200-0.400) L 11/04/18 15:45 Triglycerides 87 mg/dL (2-149) 10/11/18 00:16 Cholesterol 73 mg/dL (50-199) 10/11/18 00:16 51 mg/dL (50-130) 10/11/18 00:16 19 mg/dL (40-59) L 10/11/18 00:16 3.84 % 10/11/18 00:16 See scanned report 10/15/18 12:00 Yellow (Yellow) 10/11/18 01:42 Cloudy (Clear) 10/11/18 01:42 6.0 (5.0-7.0) 10/11/18 01:42 Ur Specific [place] 1.011 (1.003-1.030) 10/11/18 01:42 100 mg/dl mg/dL (Negative) 10/11/18 01:42 >=500 mg/dL (Negative) 10/11/18 01:42 Neg mg/dL (Negative) 10/11/18 01:42 Mod (Negative) 10/11/18 01:42 Neg (Negative) 10/11/18 01:42 Neg (Negative) 10/11/18 01:42 4.0 mg/dL (<2.0) 10/11/18 01:42 Ur Leukocyte Esterase Neg (Negative) 10/11/18 01:42 5.0 /HPF (0.0-6.0) 10/11/18 01:42 2.0 /HPF (0.0-6.0) 10/11/18 01:42 U Epithel Cells (Auto) < 1.0 /HPF (0-13.0) 10/11/18 01:42 Amorphous Crystals 1+ 10/11/18 01:42 Few /HPF 10/11/18 01:42 2+ /HPF (ANGLE ROLL OPERATOR) 10/11/18 01:42 Vancomycin Trough 8.3 ug/mL (5.0-20.0) 10/13/18 05:40 Salicylates < 0.3 mg/dL (2.8-20.0) L 10/11/18 00:16 Presumptive positive 10/11/18 01:42 Presumptive negative 10/11/18 01:42 Acetaminophen < 5.0 ug/mL (10.0-30.0) L 10/11/18 00:16 Ur Barbiturates Screen Presumptive negative 10/11/18 01:42 Ur Phencyclidine Scrn Presumptive negative 10/11/18 01:42 Ur Amphetamines Screen Presumptive positive 10/11/18 01:42 U Benzodiazepines Scrn Presumptive positive 10/11/18 01:42 Presumptive negative 10/11/18 01:42 U Marijuana (THC) Screen Presumptive negative 10/11/18 01:42 Disclamer 10/11/18 01:42 Plasma/Serum Alcohol < 0.01 % (0-0.07) 10/11/18 00:16 Heparin-induced Plt Ab Negative (Negative) 10/15/18 12:00 UF Heparin High Dose 0 % Release 10/15/18 12:00 AURELIO UFH Low Dose 0.1 0 % Release 10/15/18 12:00 AURELIO UFH Low Dose 0.5 0 % Release 10/15/18 12:00 Blood Type O POSITIVE 10/31/18 08:07 Antibody Screen Positive 10/31/18 08:07 Antibody Identification Negative 10/31/18 08:07 Direct Antiglob Test Negative 10/31/18 08:07 SHASHANK, Poly Interpret Negative 10/31/18 08:07 Crossmatch See Detail 10/31/18 08:07 Active Medications - Current Medications Current Medications: Generic Name Dose Route Start Last Admin Trade Name Freq PRN Reason Stop Dose Admin Acetaminophen 650 mg 10/11/18 04:04 10/21/18 22:21 Tylenol PO 650 mg Q4H PRN Administration Pain MILD(1-3)/Fever >100.5/HOLLINS Albuterol 2.5 mg 10/19/18 00:54 Proventil IH Q4HRT PRN Shortness Of Breath Albuterol/Ipratropium 1 ampul 10/19/18 08:00 11/07/18 08:06 Duoneb *Not For Prn Use* IH 1 ampul TIDRT ISAAC Administration Alprazolam 1 mg 10/20/18 13:06 11/06/18 08:01 Xanax PO 1 mg TID PRN Administration Anxiety Apixaban 10 mg 11/01/18 16:00 11/07/18 09:06 Eliquis PO 11/08/18 10:01 10 mg Q12HR ISAAC Administration Protocol Apixaban 5 mg 11/08/18 22:00 Eliquis PO Q12HR ISAAC Protocol Aspirin 81 mg 11/01/18 16:00 11/07/18 09:07 Halfprin Ec PO 81 mg QDAY ISAAC Administration Buprenorphine HCl 2 each 11/05/18 10:00 11/07/18 11:41 Suboxone 2 Mg-0.5 Mg SL 2 each QDAY ISAAC Administration Citalopram Hydrobromide 20 mg 11/05/18 10:00 11/07/18 09:07 Celexa PO 20 mg QDAY ISAAC Administration Dextrose 0 ml 10/11/18 03:57 10/11/18 10:18 D50w (25gm) Syringe IV 10 ml PRN PRN Administration Hypoglycemia Docusate Sodium 100 mg 11/04/18 22:00 11/07/18 09:06 Colace PO 100 mg BID ISAAC Administration Famotidine 20 mg 10/15/18 10:00 11/07/18 09:07 Pepcid PO 20 mg BID SIAAC Administration Insulin Human Regular 0 units 10/17/18 11:30 11/07/18 12:16 Humulin R SUB-Q Not Given ACHS [facility] Protocol Metoprolol Tartrate 25 mg 10/18/18 22:00 11/07/18 09:06 Lopressor PO 25 mg BID ISAAC Administration Metoprolol Tartrate 2.5 mg 10/18/18 18:51 10/18/18 22:19 Lopressor IV 2.5 mg Q6H PRN Administration Tachyarrhythmias Naloxone HCl 0.1 mg 10/29/18 16:03 Narcan 0.4 Mg/1 Ml IV Q2MIN PRN Res Rate </= 8 or 02 SAT < 92% Ondansetron HCl 4 mg 10/11/18 04:04 11/01/18 22:12 Zofran IV 4 mg Q8H PRN Administration Nausea And Vomiting Oxycodone/Acetaminophen 1 tab 10/18/18 13:45 11/07/18 09:07 Percocet 5/325 PO 1 tab Q6H PRN Administration Pain, Moderate (4-6) Nutrition/Malnutrition Assess - Dietary Evaluation Nutrition/Malnutrition Findings: Nutrition Notes Start: 10/11/18 12:39 Freq: Status: Active Protocol: Document 11/06/18 16:04 SHERLY (Rec: 11/06/18 16:14 [facility]- [email or web address]) Nutrition Notes Initial or Follow up Reassessment Current Diagnosis COPD,Diabetes,Sepsis, Hypertension,Heart Failure, Stroke Other Pertinent Diagnosis s/p (L) BKA Current Diet Mech soft + Glucerna and Hernesto BID Labs/Tests BG 163 Pertinent Medications Reviewed Height 6 ft 3 in Weight 55.2 kg [place] Body Weight (kg) 89.09 BMI 15.2 Weight change and time frame Current wt obtained from bed scale. Adj wt for BKA: 58.66kg Adj BMI: 16.1 Subjective/Other Information Pt has consumed 55% of meals over the past two days. He is confused at times and requires assistance during meal times. RD assisted pt with lunch today; he ate <25% of meal. He is edentulous, but does not want pureed foods. Takes him a long time to chew foods. Pt encouraged to drink ONS ( Glucerna and [place]) Percent of energy/protein needs met: 62% energy 66% pro (without ONS) Burn Absent Trauma Absent #2 Nutrition Diagnosis Inadequate oral intake Diagnosis Progress(for reassessment Continues documentation) #1 Nutrition Diagnosis Malnutrition Diagnosis Progress(for reassessment Continues documentation) Is patient on ventilator? No Is Patient Ambulatory and/or Out of Bed Yes REE-([place]-ambulatory/OOB) [ 1907.919 [id number]] Kcal/Kg value to use for calculation 40 Approximate Energy Requirements Using 2208 kcal/Kg Calculation Used for Recommendations Kcal/kg Additional Notes Pro needs 1.5-2g/k-110g/ day Fluid needs 1ml/kcal Nutrition Intervention Change Diet Order: Continue current diet order Add Supplement/Snack (indicate name/kcal Glucerna BID + [place] BID /protein ) Provides kCal: 630 Provides Protein (gm) 25 Goal #1 PO intake of meals plus ONS to meet 100% energy and pro needs Goal #2 Wt maintenance and/or gain Follow-Up By: 11/13/18 Additional Comments F/U: intakes, wt
[2018-11-07] MEDS: XANAX PO PRN (13:43)
--- NOTE | 2018-11-07 16:54 | Progress Note ---
Assessment and Plan Patient awake. Resting on 3L O2 via nasal cannula. O2 saturation 99%. Patient weak. No acute respiratory distress. - Patient Problems (1) Acute respiratory failure Current Visit: Yes Status: Acute Plan to address problem: O2 3 litres via nasal canula. Albuterol/atrovent aerosol treatments q 6 hours. Patient is on Apixaban Continue famotidine. (2) Acute CVA (cerebrovascular accident) Current Visit: Yes Status: Acute Plan to address problem: Management as per neurology. (3) Altered mental state Current Visit: Yes Status: Acute Qualifiers: Altered mental status type: unspecified Qualified Code(s): R41.82 - Altered mental status, unspecified Plan to address problem: Management as per primary care. (4) Atrial fibrillation Current Visit: Yes Status: Acute Plan to address problem: Management as per primary care and cardiology. Patient is on Apixaban. (5) Diabetes mellitus with hyperglycemia Current Visit: Yes Status: Acute Plan to address problem: Management as per primary care. (6) Polysubstance abuse Current Visit: Yes Status: Chronic Plan to address problem: Management as per primary care. (7) Tobacco use Current Visit: Yes Status: Chronic Plan to address problem: Counselled to stop smoking. Subjective Date of service: 11/07/18 Principal diagnosis: Ac hypercapnic hypoxemic Resp failure; Drug OD; AE-COPD; NINOSKA; Seizures Interval history: Patient awake. Resting on 3L O2 via nasal cannula. O2 saturation 99%. Patient weak. No acute respiratory distress. Objective Vital Signs - 12hr 11/07/18 11/07/18 11/07/18 05:38 08:06 08:18 Temperature 98.2 F Pulse Rate Pulse Rate [ 87 88 Throughout] Respiratory 12 Rate Respiratory 18 18 Rate [ Throughout] Blood Pressure 102/68 O2 Sat by Pulse Oximetry 11/07/18 11/07/18 11/07/18 09:40 12:44 13:45 Temperature 98.5 F Pulse Rate 68 Pulse Rate [ 64 Throughout] Respiratory 18 Rate Respiratory 18 Rate [ Throughout] Blood Pressure 100/60 O2 Sat by Pulse 94 99 Oximetry 11/07/18 14:18 Temperature Pulse Rate Pulse Rate [ 69 Throughout] Respiratory Rate Respiratory 18 Rate [ Throughout] Blood Pressure O2 Sat by Pulse Oximetry Constitutional: no acute distress, alert, other (middle aged but chronically ill looking CM; Atraumatic) Eyes: non-icteric ENT: oropharynx moist Neck: supple, no lymphadenopathy, no JVD Effort: normal Ascultation: Bilateral: diminished breath sounds, rhonchi Percussion: Bilateral: not dull Cardiovascular: irregular rhythm, other (No R/M) Gastrointestinal: normoactive bowel sounds, soft, non-tender, non-distended Integumentary: other (poor turgor) Extremities: no edema, other (s/p Left KBA, ischemic toes on the right with poor pedal pulses) Neurologic: normal mental status, pupils equal and round, other (Left hemiparesis, improving) Psychiatric: mood appropriate, affect normal CBC and BMP: 11/06/18 07:00 11/06/18 07:00 ABG, PT/INR, D-dimer: ABG POC ABG pH 7.393 (7.35-7.45) 10/16/18 12:51 POC ABG pCO2 48.9 (35-45) H 10/16/18 12:51 POC ABG pO2 92 (80-105) 10/16/18 12:51 POC ABG HCO3 29.8 (22-26 mml/L) 10/16/18 12:51 POC ABG Total CO2 31 (23-27mmol/L) 10/16/18 12:51 POC ABG O2 Sat 97 10/16/18 12:51 PT/INR, D-dimer PT 13.9 Sec. (12.2-14.9) 10/29/18 07:11 INR 1.01 (0.87-1.13) 10/29/18 07:11 Abnormal lab findings: Abnormal Labs 10/11/18 10/11/18 10/11/18 00:16 00:16 00:16 WBC 20.1 H RBC Hgb Hct MCV 98 H MCHC RDW 15.4 H Plt Count Lymph % (Auto) Fleming % (Auto) Fleming # Seg Neutrophils % Seg Neuts % (Manual) Lymphocytes % (Manual) 5.0 L Monocytes % (Manual) 25.0 H Seg Neutrophils # Seg Neutrophils # Man 9.2 H Lymphocytes # (Manual) 1.0 L Monocytes # (Manual) 5.0 H APTT Heparin Anti-Xa Level POC ABG pH POC ABG pCO2 POC ABG pO2 Sodium Potassium 5.8 H Chloride Carbon Dioxide 17 L BUN Creatinine 2.2 H Glucose 348 H POC Glucose Lactic Acid 13.70 H* Calcium 7.7 L Phosphorus Total Bilirubin 1.50 H AST 179 H ALT 110 H Total Creatine Kinase 324 H CK-MB (CK-2) Troponin T 0.257 H* Total Protein 5.9 L Albumin 2.9 L Prealbumin HDL Cholesterol 19 L Salicylates Acetaminophen Crossmatch 10/11/18 10/11/18 10/11/18 00:16 00:16 01:21 WBC RBC Hgb Hct MCV MCHC RDW Plt Count Lymph % (Auto) Fleming % (Auto) Fleming # Seg Neutrophils % Seg Neuts % (Manual) Lymphocytes % (Manual) Monocytes % (Manual) Seg Neutrophils # Seg Neutrophils # Man Lymphocytes # (Manual) Monocytes # (Manual) APTT Heparin Anti-Xa Level POC ABG pH 7.110 L POC ABG pCO2 50.3 H POC ABG pO2 65 L Sodium Potassium Chloride Carbon Dioxide BUN Creatinine Glucose POC Glucose Lactic Acid Calcium Phosphorus Total Bilirubin AST ALT Total Creatine Kinase CK-MB (CK-2) Troponin T Total Protein Albumin Prealbumin HDL Cholesterol Salicylates < 0.3 L Acetaminophen < 5.0 L Crossmatch 10/11/18 10/11/18 10/11/18 01:22 03:27 04:14 WBC RBC Hgb Hct MCV MCHC RDW Plt Count Lymph % (Auto) Fleming % (Auto) Fleming # Seg Neutrophils % Seg Neuts % (Manual) Lymphocytes % (Manual) Monocytes % (Manual) Seg Neutrophils # Seg Neutrophils # Man Lymphocytes # (Manual) Monocytes # (Manual) APTT Heparin Anti-Xa Level POC ABG pH POC ABG pCO2 POC ABG pO2 Sodium Potassium Chloride Carbon Dioxide BUN Creatinine Glucose POC Glucose Lactic Acid 8.50 H* 4.10 H* Calcium Phosphorus 4.90 H Total Bilirubin AST ALT Total Creatine Kinase CK-MB (CK-2) Troponin T Total Protein Albumin Prealbumin HDL Cholesterol Salicylates Acetaminophen Crossmatch 10/11/18 10/11/18 10/11/18 04:14 04:14 04:14 WBC RBC Hgb Hct MCV MCHC RDW Plt Count Lymph % (Auto) Fleming % (Auto) Fleming # Seg Neutrophils % Seg Neuts % (Manual) Lymphocytes % (Manual) Monocytes % (Manual) Seg Neutrophils # Seg Neutrophils # Man Lymphocytes # (Manual) Monocytes # (Manual) APTT Heparin Anti-Xa Level POC ABG pH POC ABG pCO2 POC ABG pO2 Sodium Potassium 5.6 H Chloride Carbon Dioxide 19 L BUN Creatinine 1.6 H Glucose 329 H POC Glucose 328 H Lactic Acid Calcium 7.3 L Phosphorus Total Bilirubin AST ALT Total Creatine Kinase CK-MB (CK-2) Troponin T 1.130 H* D Total Protein Albumin Prealbumin HDL Cholesterol Salicylates Acetaminophen Crossmatch 10/11/18 10/11/18 10/11/18 05:10 05:32 05:58 WBC RBC Hgb Hct MCV MCHC RDW Plt Count Lymph % (Auto) Fleming % (Auto) Fleming # Seg Neutrophils % Seg Neuts % (Manual) Lymphocytes % (Manual) Monocytes % (Manual) Seg Neutrophils # Seg Neutrophils # Man Lymphocytes # (Manual) Monocytes # (Manual) APTT Heparin Anti-Xa Level POC ABG pH 7.259 L POC ABG pCO2 45.6 H POC ABG pO2 Sodium Potassium Chloride 108.6 H Carbon Dioxide 20 L BUN Creatinine 1.8 H Glucose 269 H POC Glucose 273 H Lactic Acid Calcium 7.0 L Phosphorus Total Bilirubin AST ALT Total Creatine Kinase CK-MB (CK-2) Troponin T Total Protein Albumin Prealbumin HDL Cholesterol Salicylates Acetaminophen Crossmatch 10/11/18 10/11/18 10/11/18 05:58 06:39 07:00 WBC RBC Hgb Hct MCV MCHC RDW Plt Count Lymph % (Auto) Fleming % (Auto) Fleming # Seg Neutrophils % Seg Neuts % (Manual) Lymphocytes % (Manual) Monocytes % (Manual) Seg Neutrophils # Seg Neutrophils # Man Lymphocytes # (Manual) Monocytes # (Manual) APTT Heparin Anti-Xa Level POC ABG pH POC ABG pCO2 POC ABG pO2 Sodium Potassium Chloride Carbon Dioxide BUN Creatinine Glucose POC Glucose 247 H Lactic Acid 3.20 H* 3.30 H* Calcium Phosphorus Total Bilirubin AST ALT Total Creatine Kinase CK-MB (CK-2) Troponin T Total Protein Albumin Prealbumin HDL Cholesterol Salicylates Acetaminophen Crossmatch 10/11/18 10/11/18 10/11/18 07:00 07:30 07:36 WBC RBC Hgb Hct MCV MCHC RDW Plt Count Lymph % (Auto) Fleming % (Auto) Fleming # Seg Neutrophils % Seg Neuts % (Manual) Lymphocytes % (Manual) Monocytes % (Manual) Seg Neutrophils # Seg Neutrophils # Man Lymphocytes # (Manual) Monocytes # (Manual) APTT Heparin Anti-Xa Level POC ABG pH POC ABG pCO2 POC ABG pO2 Sodium 146 H Potassium Chloride 112.1 H Carbon Dioxide 21 L BUN Creatinine 1.6 H Glucose 218 H POC Glucose Lactic Acid 3.20 H* Calcium 7.0 L Phosphorus Total Bilirubin AST ALT Total Creatine Kinase CK-MB (CK-2) Troponin T 1.020 H* Total Protein Albumin Prealbumin HDL Cholesterol Salicylates Acetaminophen Crossmatch 10/11/18 10/11/18 10/11/18 07:43 08:29 08:29 WBC RBC Hgb 16.2 H Hct 49.9 H D MCV MCHC RDW Plt Count Lymph % (Auto) Fleming % (Auto) Fleming # Seg Neutrophils % Seg Neuts % (Manual) Lymphocytes % (Manual) Monocytes % (Manual) Seg Neutrophils # Seg Neutrophils # Man Lymphocytes # (Manual) Monocytes # (Manual) APTT Heparin Anti-Xa Level POC ABG pH POC ABG pCO2 POC ABG pO2 Sodium Potassium Chloride Carbon Dioxide BUN Creatinine Glucose POC Glucose 174 H Lactic Acid 3.90 H* Calcium Phosphorus Total Bilirubin AST ALT Total Creatine Kinase CK-MB (CK-2) Troponin T Total Protein Albumin Prealbumin HDL Cholesterol Salicylates Acetaminophen Crossmatch 10/11/18 10/11/18 10/11/18 08:29 08:42 11:05 WBC RBC Hgb Hct MCV MCHC RDW Plt Count Lymph % (Auto) Fleming % (Auto) Fleming # Seg Neutrophils % Seg Neuts % (Manual) Lymphocytes % (Manual) Monocytes % (Manual) Seg Neutrophils # Seg Neutrophils # Man Lymphocytes # (Manual) Monocytes # (Manual) APTT 24.1 L Heparin Anti-Xa Level POC ABG pH POC ABG pCO2 POC ABG pO2 Sodium 147 H Potassium Chloride 113.3 H Carbon Dioxide 21 L BUN Creatinine 1.7 H Glucose 119 H POC Glucose 164 H Lactic Acid Calcium 7.7 L Phosphorus Total Bilirubin AST ALT Total Creatine Kinase CK-MB (CK-2) Troponin T Total Protein Albumin Prealbumin HDL Cholesterol Salicylates Acetaminophen Crossmatch 10/11/18 10/11/18 10/11/18 11:05 11:06 12:30 WBC RBC Hgb Hct MCV MCHC RDW Plt Count Lymph % (Auto) Fleming % (Auto) Fleming # Seg Neutrophils % Seg Neuts % (Manual) Lymphocytes % (Manual) Monocytes % (Manual) Seg Neutrophils # Seg Neutrophils # Man Lymphocytes # (Manual) Monocytes # (Manual) APTT Heparin Anti-Xa Level POC ABG pH POC ABG pCO2 POC ABG pO2 Sodium 148 H Potassium Chloride 113.4 H Carbon Dioxide 21 L BUN Creatinine 1.6 H Glucose 119 H POC Glucose 116 H Lactic Acid 3.20 H* Calcium 7.5 L Phosphorus Total Bilirubin AST ALT Total Creatine Kinase CK-MB (CK-2) Troponin T Total Protein Albumin Prealbumin HDL Cholesterol Salicylates Acetaminophen Crossmatch 10/11/18 10/11/18 10/11/18 12:30 13:16 13:25 WBC RBC Hgb Hct MCV MCHC RDW Plt Count Lymph % (Auto) Fleming % (Auto) Fleming # Seg Neutrophils % Seg Neuts % (Manual) Lymphocytes % (Manual) Monocytes % (Manual) Seg Neutrophils # Seg Neutrophils # Man Lymphocytes # (Manual) Monocytes # (Manual) APTT Heparin Anti-Xa Level POC ABG pH 7.247 L POC ABG pCO2 48.4 H POC ABG pO2 Sodium Potassium Chloride Carbon Dioxide BUN Creatinine Glucose POC Glucose 112 H Lactic Acid 2.70 H* Calcium Phosphorus Total Bilirubin AST ALT Total Creatine Kinase CK-MB (CK-2) Troponin T Total Protein Albumin Prealbumin HDL Cholesterol Salicylates Acetaminophen Crossmatch 10/11/18 10/11/18 10/11/18 14:41 15:27 16:13 WBC RBC Hgb Hct MCV MCHC RDW Plt Count Lymph % (Auto) Fleming % (Auto) Fleming # Seg Neutrophils % Seg Neuts % (Manual) Lymphocytes % (Manual) Monocytes % (Manual) Seg Neutrophils # Seg Neutrophils # Man Lymphocytes # (Manual) Monocytes # (Manual) APTT Heparin Anti-Xa Level POC ABG pH POC ABG pCO2 POC ABG pO2 Sodium Potassium Chloride Carbon Dioxide BUN Creatinine Glucose POC Glucose 127 H 141 H 134 H Lactic Acid Calcium Phosphorus Total Bilirubin AST ALT Total Creatine Kinase CK-MB (CK-2) Troponin T Total Protein Albumin Prealbumin HDL Cholesterol Salicylates Acetaminophen Crossmatch 10/11/18 10/11/18 10/11/18 17:18 18:23 19:38 WBC RBC Hgb Hct MCV MCHC RDW Plt Count Lymph % (Auto) Fleming % (Auto) Fleming # Seg Neutrophils % Seg Neuts % (Manual) Lymphocytes % (Manual) Monocytes % (Manual) Seg Neutrophils # Seg Neutrophils # Man Lymphocytes # (Manual) Monocytes # (Manual) APTT Heparin Anti-Xa Level POC ABG pH POC ABG pCO2 POC ABG pO2 Sodium 148 H Potassium Chloride 112.7 H Carbon Dioxide BUN 23 H Creatinine Glucose 143 H POC Glucose 132 H 129 H Lactic Acid Calcium 7.9 L Phosphorus Total Bilirubin AST ALT Total Creatine Kinase CK-MB (CK-2) Troponin T Total Protein Albumin Prealbumin HDL Cholesterol Salicylates Acetaminophen Crossmatch 10/11/18 10/11/18 10/11/18 20:19 20:36 21:01 WBC RBC Hgb Hct MCV MCHC RDW Plt Count Lymph % (Auto) Fleming % (Auto) Fleming # Seg Neutrophils % Seg Neuts % (Manual) Lymphocytes % (Manual) Monocytes % (Manual) Seg Neutrophils # Seg Neutrophils # Man Lymphocytes # (Manual) Monocytes # (Manual) APTT Heparin Anti-Xa Level POC ABG pH 7.281 L POC ABG pCO2 POC ABG pO2 Sodium Potassium Chloride Carbon Dioxide BUN Creatinine Glucose POC Glucose 129 H 151 H Lactic Acid Calcium Phosphorus Total Bilirubin AST ALT Total Creatine Kinase CK-MB (CK-2) Troponin T Total Protein Albumin Prealbumin HDL Cholesterol Salicylates Acetaminophen Crossmatch 10/11/18 10/11/18 10/12/18 22:04 23:15 01:18 WBC RBC Hgb Hct MCV MCHC RDW Plt Count Lymph % (Auto) Fleming % (Auto) Fleming # Seg Neutrophils % Seg Neuts % (Manual) Lymphocytes % (Manual) Monocytes % (Manual) Seg Neutrophils # Seg Neutrophils # Man Lymphocytes # (Manual) Monocytes # (Manual) APTT Heparin Anti-Xa Level POC ABG pH POC ABG pCO2 POC ABG pO2 Sodium Potassium Chloride Carbon Dioxide BUN Creatinine Glucose POC Glucose 147 H 143 H 158 H Lactic Acid Calcium Phosphorus Total Bilirubin AST ALT Total Creatine Kinase CK-MB (CK-2) Troponin T Total Protein Albumin Prealbumin HDL Cholesterol Salicylates Acetaminophen Crossmatch 10/12/18 10/12/18 10/12/18 02:13 03:18 04:04 WBC RBC Hgb Hct MCV MCHC RDW Plt Count Lymph % (Auto) Fleming % (Auto) Fleming # Seg Neutrophils % Seg Neuts % (Manual) Lymphocytes % (Manual) Monocytes % (Manual) Seg Neutrophils # Seg Neutrophils # Man Lymphocytes # (Manual) Monocytes # (Manual) APTT Heparin Anti-Xa Level POC ABG pH POC ABG pCO2 POC ABG pO2 Sodium 147 H Potassium Chloride 111.1 H Carbon Dioxide BUN 30 H Creatinine 2.0 H Glucose 154 H POC Glucose 148 H 142 H Lactic Acid Calcium 8.1 L Phosphorus Total Bilirubin AST 269 H ALT 204 H Total Creatine Kinase 3647 H CK-MB (CK-2) 48.3 H Troponin T 2.230 H* D Total Protein 5.8 L Albumin 2.6 L Prealbumin HDL Cholesterol Salicylates Acetaminophen Crossmatch 10/12/18 10/12/18 10/12/18 04:04 04:08 04:19 WBC 24.4 H RBC Hgb Hct MCV MCHC RDW Plt Count Lymph % (Auto) Fleming % (Auto) Fleming # Seg Neutrophils % Seg Neuts % (Manual) 32.0 L Lymphocytes % (Manual) Monocytes % (Manual) 8.0 H Seg Neutrophils # Seg Neutrophils # Man 7.8 H Lymphocytes # (Manual) Monocytes # (Manual) 2.0 H APTT Heparin Anti-Xa Level POC ABG pH 7.317 L POC ABG pCO2 49.3 H POC ABG pO2 Sodium Potassium Chloride Carbon Dioxide BUN Creatinine Glucose POC Glucose 143 H Lactic Acid Calcium Phosphorus Total Bilirubin AST ALT Total Creatine Kinase CK-MB (CK-2) Troponin T Total Protein Albumin Prealbumin HDL Cholesterol Salicylates Acetaminophen Crossmatch 10/12/18 10/12/18 10/12/18 05:29 06:52 08:09 WBC RBC Hgb Hct MCV MCHC RDW Plt Count Lymph % (Auto) Fleming % (Auto) Fleming # Seg Neutrophils % Seg Neuts % (Manual) Lymphocytes % (Manual) Monocytes % (Manual) Seg Neutrophils # Seg Neutrophils # Man Lymphocytes # (Manual) Monocytes # (Manual) APTT Heparin Anti-Xa Level POC ABG pH 7.322 L POC ABG pCO2 46.5 H POC ABG pO2 Sodium Potassium Chloride Carbon Dioxide BUN Creatinine Glucose POC Glucose 196 H 226 H Lactic Acid Calcium Phosphorus Total Bilirubin AST ALT Total Creatine Kinase CK-MB (CK-2) Troponin T Total Protein Albumin Prealbumin HDL Cholesterol Salicylates Acetaminophen Crossmatch 10/12/18 10/12/18 10/12/18 08:38 10:03 15:50 WBC RBC Hgb Hct MCV MCHC RDW Plt Count Lymph % (Auto) Fleming % (Auto) Fleming # Seg Neutrophils % Seg Neuts % (Manual) Lymphocytes % (Manual) Monocytes % (Manual) Seg Neutrophils # Seg Neutrophils # Man Lymphocytes # (Manual) Monocytes # (Manual) APTT Heparin Anti-Xa Level POC ABG pH POC ABG pCO2 POC ABG pO2 Sodium Potassium Chloride Carbon Dioxide BUN Creatinine Glucose POC Glucose 138 H 148 H 221 H Lactic Acid Calcium Phosphorus Total Bilirubin AST ALT Total Creatine Kinase CK-MB (CK-2) Troponin T Total Protein Albumin Prealbumin HDL Cholesterol Salicylates Acetaminophen Crossmatch 10/12/18 10/12/18 10/12/18 18:39 20:56 21:34 WBC RBC Hgb Hct MCV MCHC RDW Plt Count Lymph % (Auto) Fleming % (Auto) Fleming # Seg Neutrophils % Seg Neuts % (Manual) Lymphocytes % (Manual) Monocytes % (Manual) Seg Neutrophils # Seg Neutrophils # Man Lymphocytes # (Manual) Monocytes # (Manual) APTT Heparin Anti-Xa Level POC ABG pH 7.336 L POC ABG pCO2 46.0 H POC ABG pO2 Sodium Potassium Chloride Carbon Dioxide BUN Creatinine Glucose POC Glucose 255 H 260 H Lactic Acid Calcium Phosphorus Total Bilirubin AST ALT Total Creatine Kinase CK-MB (CK-2) Troponin T Total Protein Albumin Prealbumin HDL Cholesterol Salicylates Acetaminophen Crossmatch 10/13/18 10/13/18 10/13/18 02:29 05:09 05:40 WBC 17.0 H RBC Hgb Hct MCV MCHC RDW Plt Count Lymph % (Auto) Fleming % (Auto) 9.2 H Fleming # 1.6 H Seg Neutrophils % 76.2 H Seg Neuts % (Manual) Lymphocytes % (Manual) Monocytes % (Manual) Seg Neutrophils # 12.9 H Seg Neutrophils # Man Lymphocytes # (Manual) Monocytes # (Manual) APTT Heparin Anti-Xa Level POC ABG pH POC ABG pCO2 POC ABG pO2 Sodium Potassium Chloride Carbon Dioxide BUN Creatinine Glucose POC Glucose 216 H 249 H Lactic Acid Calcium Phosphorus Total Bilirubin AST ALT Total Creatine Kinase CK-MB (CK-2) Troponin T Total Protein Albumin Prealbumin HDL Cholesterol Salicylates Acetaminophen Crossmatch 10/13/18 10/13/18 10/13/18 05:40 05:40 09:46 WBC RBC Hgb Hct MCV MCHC RDW Plt Count Lymph % (Auto) Fleming % (Auto) Fleming # Seg Neutrophils % Seg Neuts % (Manual) Lymphocytes % (Manual) Monocytes % (Manual) Seg Neutrophils # Seg Neutrophils # Man Lymphocytes # (Manual) Monocytes # (Manual) APTT Heparin Anti-Xa Level POC ABG pH POC ABG pCO2 POC ABG pO2 Sodium 146 H Potassium Chloride 109.8 H Carbon Dioxide BUN 35 H Creatinine Glucose 245 H POC Glucose 235 H Lactic Acid Calcium 7.9 L Phosphorus Total Bilirubin AST ALT Total Creatine Kinase CK-MB (CK-2) Troponin T 0.952 H* D Total Protein Albumin Prealbumin HDL Cholesterol Salicylates Acetaminophen Crossmatch 10/13/18 10/13/18 10/13/18 13:58 16:15 17:30 WBC RBC Hgb Hct MCV MCHC RDW Plt Count Lymph % (Auto) Fleming % (Auto) Fleming # Seg Neutrophils % Seg Neuts % (Manual) Lymphocytes % (Manual) Monocytes % (Manual) Seg Neutrophils # Seg Neutrophils # Man Lymphocytes # (Manual) Monocytes # (Manual) APTT Heparin Anti-Xa Level POC ABG pH POC ABG pCO2 51.2 H POC ABG pO2 Sodium Potassium Chloride Carbon Dioxide BUN Creatinine Glucose POC Glucose 139 H Lactic Acid Calcium Phosphorus Total Bilirubin AST ALT Total Creatine Kinase CK-MB (CK-2) Troponin T 0.816 H* Total Protein Albumin Prealbumin HDL Cholesterol Salicylates Acetaminophen Crossmatch 10/13/18 10/14/18 10/14/18 21:25 01:49 04:52 WBC RBC Hgb Hct MCV MCHC RDW Plt Count Lymph % (Auto) Fleming % (Auto) Fleming # Seg Neutrophils % Seg Neuts % (Manual) Lymphocytes % (Manual) Monocytes % (Manual) Seg Neutrophils # Seg Neutrophils # Man Lymphocytes # (Manual) Monocytes # (Manual) APTT Heparin Anti-Xa Level POC ABG pH POC ABG pCO2 56.0 H POC ABG pO2 Sodium Potassium Chloride Carbon Dioxide BUN Creatinine Glucose POC Glucose 205 H 166 H Lactic Acid Calcium Phosphorus Total Bilirubin AST ALT Total Creatine Kinase CK-MB (CK-2) Troponin T Total Protein Albumin Prealbumin HDL Cholesterol Salicylates Acetaminophen Crossmatch 10/14/18 10/14/18 10/14/18 05:32 09:45 09:45 WBC RBC Hgb 11.4 L Hct 34.5 L MCV MCHC RDW Plt Count 139 L Lymph % (Auto) Fleming % (Auto) Fleming # Seg Neutrophils % Seg Neuts % (Manual) Lymphocytes % (Manual) Monocytes % (Manual) Seg Neutrophils # Seg Neutrophils # Man Lymphocytes # (Manual) Monocytes # (Manual) APTT Heparin Anti-Xa Level POC ABG pH POC ABG pCO2 POC ABG pO2 Sodium 148 H Potassium Chloride 107.3 H Carbon Dioxide 34 H D BUN Creatinine 0.7 L D Glucose 191 H POC Glucose 164 H Lactic Acid Calcium 7.3 L Phosphorus Total Bilirubin AST 110 H ALT 91 H Total Creatine Kinase CK-MB (CK-2) Troponin T Total Protein 4.9 L Albumin 2.0 L Prealbumin HDL Cholesterol Salicylates Acetaminophen Crossmatch 10/14/18 10/14/18 10/14/18 10:54 12:20 18:30 WBC RBC Hgb Hct MCV MCHC RDW Plt Count Lymph % (Auto) Fleming % (Auto) Fleming # Seg Neutrophils % Seg Neuts % (Manual) Lymphocytes % (Manual) Monocytes % (Manual) Seg Neutrophils # Seg Neutrophils # Man Lymphocytes # (Manual) Monocytes # (Manual) APTT Heparin Anti-Xa Level POC ABG pH POC ABG pCO2 POC ABG pO2 Sodium Potassium Chloride Carbon Dioxide BUN Creatinine Glucose POC Glucose 173 H 158 H 108 H Lactic Acid Calcium Phosphorus Total Bilirubin AST ALT Total Creatine Kinase CK-MB (CK-2) Troponin T Total Protein Albumin Prealbumin HDL Cholesterol Salicylates Acetaminophen Crossmatch 10/14/18 10/15/18 10/15/18 21:54 02:12 04:19 WBC RBC Hgb Hct MCV MCHC RDW Plt Count Lymph % (Auto) Fleming % (Auto) Fleming # Seg Neutrophils % Seg Neuts % (Manual) Lymphocytes % (Manual) Monocytes % (Manual) Seg Neutrophils # Seg Neutrophils # Man Lymphocytes # (Manual) Monocytes # (Manual) APTT Heparin Anti-Xa Level POC ABG pH 7.491 H POC ABG pCO2 45.1 H POC ABG pO2 Sodium Potassium Chloride Carbon Dioxide BUN Creatinine Glucose POC Glucose 110 H 164 H Lactic Acid Calcium Phosphorus Total Bilirubin AST ALT Total Creatine Kinase CK-MB (CK-2) Troponin T Total Protein Albumin Prealbumin HDL Cholesterol Salicylates Acetaminophen Crossmatch 10/15/18 10/15/18 10/15/18 04:55 05:43 06:20 WBC RBC Hgb 11.7 L Hct 34.7 L MCV MCHC RDW Plt Count Lymph % (Auto) Fleming % (Auto) Fleming # Seg Neutrophils % Seg Neuts % (Manual) Lymphocytes % (Manual) Monocytes % (Manual) Seg Neutrophils # Seg Neutrophils # Man Lymphocytes # (Manual) Monocytes # (Manual) APTT Heparin Anti-Xa Level POC ABG pH POC ABG pCO2 47.3 H POC ABG pO2 78 L Sodium Potassium Chloride Carbon Dioxide BUN Creatinine Glucose POC Glucose 250 H Lactic Acid Calcium Phosphorus Total Bilirubin AST ALT Total Creatine Kinase CK-MB (CK-2) Troponin T Total Protein Albumin Prealbumin HDL Cholesterol Salicylates Acetaminophen Crossmatch 10/15/18 10/15/18 10/15/18 12:00 12:00 12:11 WBC RBC Hgb 11.5 L Hct 34.0 L MCV MCHC RDW Plt Count Lymph % (Auto) Fleming % (Auto) Fleming # Seg Neutrophils % Seg Neuts % (Manual) Lymphocytes % (Manual) Monocytes % (Manual) Seg Neutrophils # Seg Neutrophils # Man Lymphocytes # (Manual) Monocytes # (Manual) APTT Heparin Anti-Xa Level POC ABG pH POC ABG pCO2 POC ABG pO2 Sodium 147 H Potassium Chloride 108.5 H Carbon Dioxide BUN Creatinine 0.7 L Glucose 209 H POC Glucose 197 H Lactic Acid Calcium 7.3 L Phosphorus Total Bilirubin AST ALT Total Creatine Kinase CK-MB (CK-2) Troponin T Total Protein Albumin Prealbumin HDL Cholesterol Salicylates Acetaminophen Crossmatch 10/15/18 10/15/18 10/15/18 15:48 18:34 21:29 WBC RBC Hgb Hct MCV MCHC RDW Plt Count Lymph % (Auto) Fleming % (Auto) Fleming # Seg Neutrophils % Seg Neuts % (Manual) Lymphocytes % (Manual) Monocytes % (Manual) Seg Neutrophils # Seg Neutrophils # Man Lymphocytes # (Manual) Monocytes # (Manual) APTT Heparin Anti-Xa Level POC ABG pH POC ABG pCO2 POC ABG pO2 Sodium Potassium Chloride Carbon Dioxide BUN Creatinine Glucose POC Glucose 220 H 249 H 209 H Lactic Acid Calcium Phosphorus Total Bilirubin AST ALT Total Creatine Kinase CK-MB (CK-2) Troponin T Total Protein Albumin Prealbumin HDL Cholesterol Salicylates Acetaminophen Crossmatch 10/16/18 10/16/18 10/16/18 02:16 03:50 05:57 WBC RBC Hgb Hct MCV MCHC RDW Plt Count Lymph % (Auto) Fleming % (Auto) Fleming # Seg Neutrophils % Seg Neuts % (Manual) Lymphocytes % (Manual) Monocytes % (Manual) Seg Neutrophils # Seg Neutrophils # Man Lymphocytes # (Manual) Monocytes # (Manual) APTT Heparin Anti-Xa Level POC ABG pH POC ABG pCO2 55.8 H POC ABG pO2 Sodium Potassium Chloride Carbon Dioxide BUN Creatinine Glucose POC Glucose 110 H 209 H Lactic Acid Calcium Phosphorus Total Bilirubin AST ALT Total Creatine Kinase CK-MB (CK-2) Troponin T Total Protein Albumin Prealbumin HDL Cholesterol Salicylates Acetaminophen Crossmatch 10/16/18 10/16/18 10/16/18 10:51 12:51 15:01 WBC RBC Hgb Hct MCV MCHC RDW Plt Count Lymph % (Auto) Fleming % (Auto) Fleming # Seg Neutrophils % Seg Neuts % (Manual) Lymphocytes % (Manual) Monocytes % (Manual) Seg Neutrophils # Seg Neutrophils # Man Lymphocytes # (Manual) Monocytes # (Manual) APTT Heparin Anti-Xa Level POC ABG pH POC ABG pCO2 48.9 H POC ABG pO2 Sodium Potassium Chloride Carbon Dioxide BUN Creatinine Glucose POC Glucose 198 H 196 H Lactic Acid Calcium Phosphorus Total Bilirubin AST ALT Total Creatine Kinase CK-MB (CK-2) Troponin T Total Protein Albumin Prealbumin HDL Cholesterol Salicylates Acetaminophen Crossmatch 10/16/18 10/16/18 10/17/18 17:34 21:59 02:17 WBC RBC Hgb Hct MCV MCHC RDW Plt Count Lymph % (Auto) Fleming % (Auto) Fleming # Seg Neutrophils % Seg Neuts % (Manual) Lymphocytes % (Manual) Monocytes % (Manual) Seg Neutrophils # Seg Neutrophils # Man Lymphocytes # (Manual) Monocytes # (Manual) APTT Heparin Anti-Xa Level POC ABG pH POC ABG pCO2 POC ABG pO2 Sodium Potassium Chloride Carbon Dioxide BUN Creatinine Glucose POC Glucose 179 H 139 H 135 H Lactic Acid Calcium Phosphorus Total Bilirubin AST ALT Total Creatine Kinase CK-MB (CK-2) Troponin T Total Protein Albumin Prealbumin HDL Cholesterol Salicylates Acetaminophen Crossmatch 10/17/18 10/17/18 10/17/18 05:40 05:47 10:18 WBC RBC Hgb 11.3 L Hct 33.2 L MCV MCHC RDW Plt Count Lymph % (Auto) Fleming % (Auto) Fleming # Seg Neutrophils % Seg Neuts % (Manual) Lymphocytes % (Manual) Monocytes % (Manual) Seg Neutrophils # Seg Neutrophils # Man Lymphocytes # (Manual) Monocytes # (Manual) APTT Heparin Anti-Xa Level POC ABG pH POC ABG pCO2 POC ABG pO2 Sodium Potassium Chloride Carbon Dioxide BUN Creatinine Glucose POC Glucose 125 H 139 H Lactic Acid Calcium Phosphorus Total Bilirubin AST ALT Total Creatine Kinase CK-MB (CK-2) Troponin T Total Protein Albumin Prealbumin HDL Cholesterol Salicylates Acetaminophen Crossmatch 10/17/18 10/18/18 10/18/18 23:11 08:49 11:31 WBC RBC Hgb Hct MCV MCHC RDW Plt Count Lymph % (Auto) Fleming % (Auto) Fleming # Seg Neutrophils % Seg Neuts % (Manual) Lymphocytes % (Manual) Monocytes % (Manual) Seg Neutrophils # Seg Neutrophils # Man Lymphocytes # (Manual) Monocytes # (Manual) APTT Heparin Anti-Xa Level POC ABG pH POC ABG pCO2 POC ABG pO2 Sodium Potassium Chloride Carbon Dioxide BUN Creatinine Glucose POC Glucose 165 H 125 H 182 H Lactic Acid Calcium Phosphorus Total Bilirubin AST ALT Total Creatine Kinase CK-MB (CK-2) Troponin T Total Protein Albumin Prealbumin HDL Cholesterol Salicylates Acetaminophen Crossmatch 10/18/18 10/18/18 10/19/18 16:12 21:02 00:28 WBC RBC Hgb 11.4 L Hct 33.6 L MCV MCHC RDW Plt Count Lymph % (Auto) Fleming % (Auto) 14.0 H Fleming # 1.2 H Seg Neutrophils % Seg Neuts % (Manual) Lymphocytes % (Manual) Monocytes % (Manual) Seg Neutrophils # Seg Neutrophils # Man Lymphocytes # (Manual) Monocytes # (Manual) APTT Heparin Anti-Xa Level POC ABG pH POC ABG pCO2 POC ABG pO2 Sodium Potassium Chloride Carbon Dioxide BUN Creatinine Glucose POC Glucose 168 H 324 H Lactic Acid Calcium Phosphorus Total Bilirubin AST ALT Total Creatine Kinase CK-MB (CK-2) Troponin T Total Protein Albumin Prealbumin HDL Cholesterol Salicylates Acetaminophen Crossmatch 10/19/18 10/19/18 10/19/18 04:57 04:57 07:32 WBC RBC Hgb 11.7 L Hct 34.0 L MCV MCHC RDW Plt Count Lymph % (Auto) Fleming % (Auto) Fleming # Seg Neutrophils % Seg Neuts % (Manual) Lymphocytes % (Manual) Monocytes % (Manual) Seg Neutrophils # Seg Neutrophils # Man Lymphocytes # (Manual) Monocytes # (Manual) APTT Heparin Anti-Xa Level POC ABG pH POC ABG pCO2 POC ABG pO2 Sodium Potassium 3.5 L Chloride 108.6 H Carbon Dioxide BUN Creatinine 0.6 L Glucose POC Glucose 159 H Lactic Acid Calcium 7.9 L Phosphorus Total Bilirubin AST ALT Total Creatine Kinase CK-MB (CK-2) Troponin T Total Protein Albumin Prealbumin HDL Cholesterol Salicylates Acetaminophen Crossmatch 10/19/18 10/19/18 10/20/18 16:25 20:59 12:04 WBC RBC Hgb Hct MCV MCHC RDW Plt Count Lymph % (Auto) Fleming % (Auto) Fleming # Seg Neutrophils % Seg Neuts % (Manual) Lymphocytes % (Manual) Monocytes % (Manual) Seg Neutrophils # Seg Neutrophils # Man Lymphocytes # (Manual) Monocytes # (Manual) APTT Heparin Anti-Xa Level POC ABG pH POC ABG pCO2 POC ABG pO2 Sodium Potassium Chloride Carbon Dioxide BUN Creatinine Glucose POC Glucose 134 H 110 H 338 H Lactic Acid Calcium Phosphorus Total Bilirubin AST ALT Total Creatine Kinase CK-MB (CK-2) Troponin T Total Protein Albumin Prealbumin HDL Cholesterol Salicylates Acetaminophen Crossmatch 10/20/18 10/20/18 10/21/18 17:55 22:07 04:59 WBC RBC Hgb 11.6 L Hct 33.9 L MCV MCHC RDW Plt Count Lymph % (Auto) Fleming % (Auto) 9.7 H Fleming # 0.9 H Seg Neutrophils % 70.7 H Seg Neuts % (Manual) Lymphocytes % (Manual) Monocytes % (Manual) Seg Neutrophils # Seg Neutrophils # Man Lymphocytes # (Manual) Monocytes # (Manual) APTT Heparin Anti-Xa Level POC ABG pH POC ABG pCO2 POC ABG pO2 Sodium Potassium Chloride Carbon Dioxide BUN Creatinine Glucose POC Glucose 146 H 164 H Lactic Acid Calcium Phosphorus Total Bilirubin AST ALT Total Creatine Kinase CK-MB (CK-2) Troponin T Total Protein Albumin Prealbumin HDL Cholesterol Salicylates Acetaminophen Crossmatch 10/21/18 10/21/18 10/21/18 04:59 07:52 11:39 WBC RBC Hgb Hct MCV MCHC RDW Plt Count Lymph % (Auto) Fleming % (Auto) Fleming # Seg Neutrophils % Seg Neuts % (Manual) Lymphocytes % (Manual) Monocytes % (Manual) Seg Neutrophils # Seg Neutrophils # Man Lymphocytes # (Manual) Monocytes # (Manual) APTT Heparin Anti-Xa Level POC ABG pH POC ABG pCO2 POC ABG pO2 Sodium Potassium 3.5 L Chloride 107.1 H Carbon Dioxide BUN Creatinine 0.5 L Glucose 158 H POC Glucose 142 H 194 H Lactic Acid Calcium 7.5 L Phosphorus Total Bilirubin AST ALT Total Creatine Kinase CK-MB (CK-2) Troponin T Total Protein 5.6 L Albumin 2.0 L Prealbumin HDL Cholesterol Salicylates Acetaminophen Crossmatch 10/21/18 10/21/18 10/22/18 17:05 20:37 05:38 WBC RBC 3.48 L Hgb 10.8 L Hct 31.7 L MCV MCHC RDW Plt Count 458 H Lymph % (Auto) Fleming % (Auto) 10.5 H Fleming # Seg Neutrophils % Seg Neuts % (Manual) Lymphocytes % (Manual) Monocytes % (Manual) Seg Neutrophils # Seg Neutrophils # Man Lymphocytes # (Manual) Monocytes # (Manual) APTT Heparin Anti-Xa Level POC ABG pH POC ABG pCO2 POC ABG pO2 Sodium Potassium Chloride Carbon Dioxide BUN Creatinine Glucose POC Glucose 167 H 182 H Lactic Acid Calcium Phosphorus Total Bilirubin AST ALT Total Creatine Kinase CK-MB (CK-2) Troponin T Total Protein Albumin Prealbumin HDL Cholesterol Salicylates Acetaminophen Crossmatch 10/22/18 10/22/18 10/22/18 05:38 07:48 12:08 WBC RBC Hgb Hct MCV MCHC RDW Plt Count Lymph % (Auto) Fleming % (Auto) Fleming # Seg Neutrophils % Seg Neuts % (Manual) Lymphocytes % (Manual) Monocytes % (Manual) Seg Neutrophils # Seg Neutrophils # Man Lymphocytes # (Manual) Monocytes # (Manual) APTT Heparin Anti-Xa Level POC ABG pH POC ABG pCO2 POC ABG pO2 Sodium Potassium Chloride Carbon Dioxide BUN Creatinine 0.5 L Glucose 146 H POC Glucose 130 H 167 H Lactic Acid Calcium 7.8 L Phosphorus Total Bilirubin AST 41 H ALT Total Creatine Kinase CK-MB (CK-2) Troponin T Total Protein 5.5 L Albumin 2.1 L Prealbumin HDL Cholesterol Salicylates Acetaminophen Crossmatch 10/22/18 10/22/18 10/23/18 16:45 21:42 04:38 WBC RBC Hgb 11.7 L Hct 34.7 L MCV MCHC RDW Plt Count 523 H Lymph % (Auto) Fleming % (Auto) 8.7 H Fleming # Seg Neutrophils % 71.6 H Seg Neuts % (Manual) Lymphocytes % (Manual) Monocytes % (Manual) Seg Neutrophils # Seg Neutrophils # Man Lymphocytes # (Manual) Monocytes # (Manual) APTT Heparin Anti-Xa Level POC ABG pH POC ABG pCO2 POC ABG pO2 Sodium Potassium Chloride Carbon Dioxide BUN Creatinine Glucose POC Glucose 113 H 134 H Lactic Acid Calcium Phosphorus Total Bilirubin AST ALT Total Creatine Kinase CK-MB (CK-2) Troponin T Total Protein Albumin Prealbumin HDL Cholesterol Salicylates Acetaminophen Crossmatch 10/23/18 10/23/18 10/23/18 04:38 07:56 11:15 WBC RBC Hgb Hct MCV MCHC RDW Plt Count Lymph % (Auto) Fleming % (Auto) Fleming # Seg Neutrophils % Seg Neuts % (Manual) Lymphocytes % (Manual) Monocytes % (Manual) Seg Neutrophils # Seg Neutrophils # Man Lymphocytes # (Manual) Monocytes # (Manual) APTT Heparin Anti-Xa Level POC ABG pH POC ABG pCO2 POC ABG pO2 Sodium Potassium Chloride Carbon Dioxide BUN 7 L Creatinine 0.5 L Glucose 150 H POC Glucose 123 H 212 H Lactic Acid Calcium 8.0 L Phosphorus Total Bilirubin AST 55 H ALT Total Creatine Kinase CK-MB (CK-2) Troponin T Total Protein 6.2 L Albumin 2.3 L Prealbumin HDL Cholesterol Salicylates Acetaminophen Crossmatch 10/23/18 10/23/18 10/24/18 16:06 22:01 05:56 WBC 11.8 H RBC 3.64 L Hgb 11.2 L Hct 33.4 L MCV MCHC RDW Plt Count 564 H Lymph % (Auto) 11.3 L Fleming % (Auto) Fleming # Seg Neutrophils % 80.2 H Seg Neuts % (Manual) Lymphocytes % (Manual) Monocytes % (Manual) Seg Neutrophils # 9.4 H Seg Neutrophils # Man Lymphocytes # (Manual) Monocytes # (Manual) APTT Heparin Anti-Xa Level POC ABG pH POC ABG pCO2 POC ABG pO2 Sodium Potassium Chloride Carbon Dioxide BUN Creatinine Glucose POC Glucose 152 H 235 H Lactic Acid Calcium Phosphorus Total Bilirubin AST ALT Total Creatine Kinase CK-MB (CK-2) Troponin T Total Protein Albumin Prealbumin HDL Cholesterol Salicylates Acetaminophen Crossmatch 10/24/18 10/24/18 10/24/18 05:56 07:52 11:58 WBC RBC Hgb Hct MCV MCHC RDW Plt Count Lymph % (Auto) Fleming % (Auto) Fleming # Seg Neutrophils % Seg Neuts % (Manual) Lymphocytes % (Manual) Monocytes % (Manual) Seg Neutrophils # Seg Neutrophils # Man Lymphocytes # (Manual) Monocytes # (Manual) APTT Heparin Anti-Xa Level POC ABG pH POC ABG pCO2 POC ABG pO2 Sodium Potassium Chloride Carbon Dioxide BUN Creatinine 0.5 L Glucose 175 H POC Glucose 156 H 238 H Lactic Acid Calcium 8.0 L Phosphorus Total Bilirubin AST 44 H ALT Total Creatine Kinase CK-MB (CK-2) Troponin T Total Protein 6.2 L Albumin 2.4 L Prealbumin HDL Cholesterol Salicylates Acetaminophen Crossmatch 10/24/18 10/24/18 10/25/18 16:20 22:13 07:53 WBC RBC Hgb Hct MCV MCHC RDW Plt Count Lymph % (Auto) Fleming % (Auto) Fleming # Seg Neutrophils % Seg Neuts % (Manual) Lymphocytes % (Manual) Monocytes % (Manual) Seg Neutrophils # Seg Neutrophils # Man Lymphocytes # (Manual) Monocytes # (Manual) APTT Heparin Anti-Xa Level POC ABG pH POC ABG pCO2 POC ABG pO2 Sodium Potassium Chloride Carbon Dioxide BUN Creatinine Glucose POC Glucose 60 L 261 H 211 H Lactic Acid Calcium Phosphorus Total Bilirubin AST ALT Total Creatine Kinase CK-MB (CK-2) Troponin T Total Protein Albumin Prealbumin HDL Cholesterol Salicylates Acetaminophen Crossmatch 10/25/18 10/25/18 10/25/18 11:03 16:02 22:45 WBC RBC Hgb Hct MCV MCHC RDW Plt Count Lymph % (Auto) Fleming % (Auto) Fleming # Seg Neutrophils % Seg Neuts % (Manual) Lymphocytes % (Manual) Monocytes % (Manual) Seg Neutrophils # Seg Neutrophils # Man Lymphocytes # (Manual) Monocytes # (Manual) APTT Heparin Anti-Xa Level POC ABG pH POC ABG pCO2 POC ABG pO2 Sodium Potassium Chloride Carbon Dioxide BUN Creatinine Glucose POC Glucose 137 H 186 H 140 H Lactic Acid Calcium Phosphorus Total Bilirubin AST ALT Total Creatine Kinase CK-MB (CK-2) Troponin T Total Protein Albumin Prealbumin HDL Cholesterol Salicylates Acetaminophen Crossmatch 10/26/18 10/26/18 10/26/18 08:13 10:08 11:28 WBC RBC Hgb Hct MCV MCHC RDW Plt Count Lymph % (Auto) Fleming % (Auto) Fleming # Seg Neutrophils % Seg Neuts % (Manual) Lymphocytes % (Manual) Monocytes % (Manual) Seg Neutrophils # Seg Neutrophils # Man Lymphocytes # (Manual) Monocytes # (Manual) APTT Heparin Anti-Xa Level POC ABG pH POC ABG pCO2 POC ABG pO2 Sodium Potassium Chloride Carbon Dioxide BUN Creatinine Glucose POC Glucose 144 H 110 H 201 H Lactic Acid Calcium Phosphorus Total Bilirubin AST ALT Total Creatine Kinase CK-MB (CK-2) Troponin T Total Protein Albumin Prealbumin HDL Cholesterol Salicylates Acetaminophen Crossmatch 10/26/18 10/26/18 10/27/18 16:36 22:29 07:34 WBC RBC Hgb Hct MCV MCHC RDW Plt Count Lymph % (Auto) Fleming % (Auto) Fleming # Seg Neutrophils % Seg Neuts % (Manual) Lymphocytes % (Manual) Monocytes % (Manual) Seg Neutrophils # Seg Neutrophils # Man Lymphocytes # (Manual) Monocytes # (Manual) APTT Heparin Anti-Xa Level POC ABG pH POC ABG pCO2 POC ABG pO2 Sodium Potassium Chloride Carbon Dioxide BUN Creatinine Glucose POC Glucose 147 H 302 H 182 H Lactic Acid Calcium Phosphorus Total Bilirubin AST ALT Total Creatine Kinase CK-MB (CK-2) Troponin T Total Protein Albumin Prealbumin HDL Cholesterol Salicylates Acetaminophen Crossmatch 10/27/18 10/27/18 10/27/18 11:57 13:33 14:55 WBC RBC Hgb Hct MCV MCHC RDW Plt Count 550 H Lymph % (Auto) Fleming % (Auto) Fleming # Seg Neutrophils % Seg Neuts % (Manual) Lymphocytes % (Manual) Monocytes % (Manual) Seg Neutrophils # Seg Neutrophils # Man Lymphocytes # (Manual) Monocytes # (Manual) APTT Heparin Anti-Xa Level POC ABG pH POC ABG pCO2 POC ABG pO2 Sodium Potassium Chloride Carbon Dioxide BUN Creatinine Glucose POC Glucose 209 H Lactic Acid Calcium Phosphorus Total Bilirubin AST ALT Total Creatine Kinase CK-MB (CK-2) Troponin T Total Protein Albumin Prealbumin HDL Cholesterol Salicylates Acetaminophen Crossmatch See Detail 10/27/18 10/27/18 10/28/18 17:09 21:45 07:45 WBC RBC Hgb Hct MCV MCHC RDW Plt Count Lymph % (Auto) Fleming % (Auto) Fleming # Seg Neutrophils % Seg Neuts % (Manual) Lymphocytes % (Manual) Monocytes % (Manual) Seg Neutrophils # Seg Neutrophils # Man Lymphocytes # (Manual) Monocytes # (Manual) APTT Heparin Anti-Xa Level POC ABG pH POC ABG pCO2 POC ABG pO2 Sodium Potassium Chloride Carbon Dioxide BUN Creatinine Glucose POC Glucose 233 H 136 H 201 H Lactic Acid Calcium Phosphorus Total Bilirubin AST ALT Total Creatine Kinase CK-MB (CK-2) Troponin T Total Protein Albumin Prealbumin HDL Cholesterol Salicylates Acetaminophen Crossmatch 10/28/18 10/28/18 10/28/18 11:17 16:34 19:51 WBC RBC Hgb Hct MCV MCHC RDW Plt Count Lymph % (Auto) Fleming % (Auto) Fleming # Seg Neutrophils % Seg Neuts % (Manual) Lymphocytes % (Manual) Monocytes % (Manual) Seg Neutrophils # Seg Neutrophils # Man Lymphocytes # (Manual) Monocytes # (Manual) APTT Heparin Anti-Xa Level < 0.10 L POC ABG pH POC ABG pCO2 POC ABG pO2 Sodium Potassium Chloride Carbon Dioxide BUN Creatinine Glucose POC Glucose 116 H 168 H Lactic Acid Calcium Phosphorus Total Bilirubin AST ALT Total Creatine Kinase CK-MB (CK-2) Troponin T Total Protein Albumin Prealbumin HDL Cholesterol Salicylates Acetaminophen Crossmatch 10/28/18 10/29/18 10/29/18 21:52 07:11 07:11 WBC RBC Hgb Hct MCV MCHC RDW Plt Count 470 H Lymph % (Auto) Fleming % (Auto) Fleming # Seg Neutrophils % Seg Neuts % (Manual) Lymphocytes % (Manual) Monocytes % (Manual) Seg Neutrophils # Seg Neutrophils # Man Lymphocytes # (Manual) Monocytes # (Manual) APTT Heparin Anti-Xa Level 0.13 L POC ABG pH POC ABG pCO2 POC ABG pO2 Sodium Potassium Chloride Carbon Dioxide BUN Creatinine Glucose POC Glucose 159 H Lactic Acid Calcium Phosphorus Total Bilirubin AST ALT Total Creatine Kinase CK-MB (CK-2) Troponin T Total Protein Albumin Prealbumin HDL Cholesterol Salicylates Acetaminophen Crossmatch 10/29/18 10/29/18 10/29/18 07:11 07:43 11:29 WBC RBC Hgb Hct MCV MCHC RDW Plt Count Lymph % (Auto) Fleming % (Auto) Fleming # Seg Neutrophils % Seg Neuts % (Manual) Lymphocytes % (Manual) Monocytes % (Manual) Seg Neutrophils # Seg Neutrophils # Man Lymphocytes # (Manual) Monocytes # (Manual) APTT Heparin Anti-Xa Level POC ABG pH POC ABG pCO2 POC ABG pO2 Sodium Potassium Chloride Carbon Dioxide BUN 7 L Creatinine 0.5 L Glucose 122 H POC Glucose 147 H 165 H Lactic Acid Calcium 8.2 L Phosphorus Total Bilirubin AST ALT Total Creatine Kinase CK-MB (CK-2) Troponin T Total Protein Albumin Prealbumin HDL Cholesterol Salicylates Acetaminophen Crossmatch 10/29/18 10/29/18 10/30/18 19:50 22:11 00:11 WBC RBC Hgb Hct MCV MCHC RDW Plt Count Lymph % (Auto) Fleming % (Auto) Fleming # Seg Neutrophils % Seg Neuts % (Manual) Lymphocytes % (Manual) Monocytes % (Manual) Seg Neutrophils # Seg Neutrophils # Man Lymphocytes # (Manual) Monocytes # (Manual) APTT Heparin Anti-Xa Level 0.25 L POC ABG pH POC ABG pCO2 POC ABG pO2 Sodium Potassium Chloride Carbon Dioxide BUN Creatinine Glucose POC Glucose 166 H 173 H Lactic Acid Calcium Phosphorus Total Bilirubin AST ALT Total Creatine Kinase CK-MB (CK-2) Troponin T Total Protein Albumin Prealbumin HDL Cholesterol Salicylates Acetaminophen Crossmatch 10/30/18 10/30/18 10/30/18 04:22 04:22 07:47 WBC 27.0 H RBC 3.16 L Hgb 10.0 L Hct 28.8 L D MCV MCHC 35 H RDW Plt Count Lymph % (Auto) Fleming % (Auto) Fleming # Seg Neutrophils % Seg Neuts % (Manual) Lymphocytes % (Manual) 1.5 L Monocytes % (Manual) Seg Neutrophils # Seg Neutrophils # Man 18.6 H Lymphocytes # (Manual) 0.4 L Monocytes # (Manual) APTT Heparin Anti-Xa Level POC ABG pH POC ABG pCO2 POC ABG pO2 Sodium Potassium Chloride Carbon Dioxide BUN Creatinine Glucose 224 H POC Glucose 168 H Lactic Acid Calcium 7.5 L Phosphorus Total Bilirubin AST ALT Total Creatine Kinase CK-MB (CK-2) Troponin T Total Protein Albumin Prealbumin HDL Cholesterol Salicylates Acetaminophen Crossmatch 10/30/18 10/30/18 10/30/18 07:55 11:20 16:41 WBC RBC Hgb Hct MCV MCHC RDW Plt Count Lymph % (Auto) Fleming % (Auto) Fleming # Seg Neutrophils % Seg Neuts % (Manual) Lymphocytes % (Manual) Monocytes % (Manual) Seg Neutrophils # Seg Neutrophils # Man Lymphocytes # (Manual) Monocytes # (Manual) APTT Heparin Anti-Xa Level < 0.10 L POC ABG pH POC ABG pCO2 POC ABG pO2 Sodium Potassium Chloride Carbon Dioxide BUN Creatinine Glucose POC Glucose 165 H 142 H Lactic Acid Calcium Phosphorus Total Bilirubin AST ALT Total Creatine Kinase CK-MB (CK-2) Troponin T Total Protein Albumin Prealbumin HDL Cholesterol Salicylates Acetaminophen Crossmatch 10/30/18 10/30/18 10/31/18 20:51 21:20 05:21 WBC RBC Hgb 9.0 L Hct 26.6 L MCV MCHC RDW Plt Count Lymph % (Auto) Fleming % (Auto) Fleming # Seg Neutrophils % Seg Neuts % (Manual) Lymphocytes % (Manual) Monocytes % (Manual) Seg Neutrophils # Seg Neutrophils # Man Lymphocytes # (Manual) Monocytes # (Manual) APTT Heparin Anti-Xa Level < 0.10 L POC ABG pH POC ABG pCO2 POC ABG pO2 Sodium Potassium Chloride Carbon Dioxide BUN Creatinine Glucose POC Glucose 136 H Lactic Acid Calcium Phosphorus Total Bilirubin AST ALT Total Creatine Kinase CK-MB (CK-2) Troponin T Total Protein Albumin Prealbumin HDL Cholesterol Salicylates Acetaminophen Crossmatch 10/31/18 10/31/18 10/31/18 08:07 10:19 12:12 WBC RBC Hgb Hct MCV MCHC RDW Plt Count Lymph % (Auto) Fleming % (Auto) Fleming # Seg Neutrophils % Seg Neuts % (Manual) Lymphocytes % (Manual) Monocytes % (Manual) Seg Neutrophils # Seg Neutrophils # Man Lymphocytes # (Manual) Monocytes # (Manual) APTT Heparin Anti-Xa Level POC ABG pH POC ABG pCO2 POC ABG pO2 Sodium Potassium Chloride Carbon Dioxide BUN Creatinine Glucose POC Glucose 155 H 194 H Lactic Acid Calcium Phosphorus Total Bilirubin AST ALT Total Creatine Kinase CK-MB (CK-2) Troponin T Total Protein Albumin Prealbumin HDL Cholesterol Salicylates Acetaminophen Crossmatch See Detail 10/31/18 10/31/18 10/31/18 16:07 16:56 21:14 WBC RBC Hgb Hct MCV MCHC RDW Plt Count Lymph % (Auto) Fleming % (Auto) Fleming # Seg Neutrophils % Seg Neuts % (Manual) Lymphocytes % (Manual) Monocytes % (Manual) Seg Neutrophils # Seg Neutrophils # Man Lymphocytes # (Manual) Monocytes # (Manual) APTT Heparin Anti-Xa Level 1.20 H POC ABG pH POC ABG pCO2 POC ABG pO2 Sodium Potassium Chloride Carbon Dioxide BUN Creatinine Glucose POC Glucose 354 H 234 H Lactic Acid Calcium Phosphorus Total Bilirubin AST ALT Total Creatine Kinase CK-MB (CK-2) Troponin T Total Protein Albumin Prealbumin HDL Cholesterol Salicylates Acetaminophen Crossmatch 11/01/18 11/01/18 11/01/18 00:52 05:52 05:52 WBC 12.5 H RBC 2.95 L Hgb 9.1 L Hct 27.4 L MCV MCHC RDW 15.3 H Plt Count Lymph % (Auto) Fleming % (Auto) Fleming # Seg Neutrophils % Seg Neuts % (Manual) Lymphocytes % (Manual) Monocytes % (Manual) Seg Neutrophils # Seg Neutrophils # Man Lymphocytes # (Manual) Monocytes # (Manual) APTT Heparin Anti-Xa Level 1.53 H POC ABG pH POC ABG pCO2 POC ABG pO2 Sodium Potassium Chloride Carbon Dioxide BUN Creatinine 0.5 L Glucose 169 H POC Glucose Lactic Acid Calcium 8.3 L Phosphorus Total Bilirubin AST ALT Total Creatine Kinase CK-MB (CK-2) Troponin T Total Protein 6.2 L Albumin 2.3 L Prealbumin HDL Cholesterol Salicylates Acetaminophen Crossmatch 11/01/18 11/01/18 11/01/18 08:17 10:57 11:38 WBC RBC Hgb Hct MCV MCHC RDW Plt Count Lymph % (Auto) Fleming % (Auto) Fleming # Seg Neutrophils % Seg Neuts % (Manual) Lymphocytes % (Manual) Monocytes % (Manual) Seg Neutrophils # Seg Neutrophils # Man Lymphocytes # (Manual) Monocytes # (Manual) APTT Heparin Anti-Xa Level 1.05 H POC ABG pH POC ABG pCO2 POC ABG pO2 Sodium Potassium Chloride Carbon Dioxide BUN Creatinine Glucose POC Glucose 158 H 133 H Lactic Acid Calcium Phosphorus Total Bilirubin AST ALT Total Creatine Kinase CK-MB (CK-2) Troponin T Total Protein Albumin Prealbumin HDL Cholesterol Salicylates Acetaminophen Crossmatch 11/01/18 11/01/18 11/02/18 17:08 21:23 04:56 WBC RBC 3.02 L Hgb 9.5 L Hct 28.0 L MCV MCHC RDW Plt Count Lymph % (Auto) Fleming % (Auto) Fleming # Seg Neutrophils % Seg Neuts % (Manual) Lymphocytes % (Manual) Monocytes % (Manual) Seg Neutrophils # Seg Neutrophils # Man Lymphocytes # (Manual) Monocytes # (Manual) APTT Heparin Anti-Xa Level POC ABG pH POC ABG pCO2 POC ABG pO2 Sodium Potassium Chloride Carbon Dioxide BUN Creatinine Glucose POC Glucose 156 H 213 H Lactic Acid Calcium Phosphorus Total Bilirubin AST ALT Total Creatine Kinase CK-MB (CK-2) Troponin T Total Protein Albumin Prealbumin HDL Cholesterol Salicylates Acetaminophen Crossmatch 11/02/18 11/02/18 11/02/18 04:56 08:38 11:23 WBC RBC Hgb Hct MCV MCHC RDW Plt Count Lymph % (Auto) Fleming % (Auto) Fleming # Seg Neutrophils % Seg Neuts % (Manual) Lymphocytes % (Manual) Monocytes % (Manual) Seg Neutrophils # Seg Neutrophils # Man Lymphocytes # (Manual) Monocytes # (Manual) APTT Heparin Anti-Xa Level POC ABG pH POC ABG pCO2 POC ABG pO2 Sodium Potassium Chloride Carbon Dioxide BUN Creatinine 0.5 L Glucose 141 H POC Glucose 173 H 272 H Lactic Acid Calcium 8.2 L Phosphorus Total Bilirubin AST 43 H ALT Total Creatine Kinase CK-MB (CK-2) Troponin T Total Protein 6.1 L Albumin 2.2 L Prealbumin HDL Cholesterol Salicylates Acetaminophen Crossmatch 11/02/18 11/03/18 11/03/18 22:16 04:38 04:38 WBC 11.6 H RBC 3.20 L Hgb 9.8 L Hct 29.2 L MCV MCHC RDW Plt Count Lymph % (Auto) Fleming % (Auto) Fleming # Seg Neutrophils % Seg Neuts % (Manual) Lymphocytes % (Manual) Monocytes % (Manual) Seg Neutrophils # Seg Neutrophils # Man Lymphocytes # (Manual) Monocytes # (Manual) APTT Heparin Anti-Xa Level POC ABG pH POC ABG pCO2 POC ABG pO2 Sodium 135 L Potassium Chloride Carbon Dioxide BUN Creatinine 0.5 L Glucose 160 H POC Glucose 182 H Lactic Acid Calcium Phosphorus Total Bilirubin AST 46 H ALT Total Creatine Kinase CK-MB (CK-2) Troponin T Total Protein Albumin 2.3 L Prealbumin HDL Cholesterol Salicylates Acetaminophen Crossmatch 11/03/18 11/03/18 11/03/18 07:52 10:59 18:10 WBC RBC Hgb Hct MCV MCHC RDW Plt Count Lymph % (Auto) Fleming % (Auto) Fleming # Seg Neutrophils % Seg Neuts % (Manual) Lymphocytes % (Manual) Monocytes % (Manual) Seg Neutrophils # Seg Neutrophils # Man Lymphocytes # (Manual) Monocytes # (Manual) APTT Heparin Anti-Xa Level POC ABG pH POC ABG pCO2 POC ABG pO2 Sodium Potassium Chloride Carbon Dioxide BUN Creatinine Glucose POC Glucose 180 H 159 H 169 H Lactic Acid Calcium Phosphorus Total Bilirubin AST ALT Total Creatine Kinase CK-MB (CK-2) Troponin T Total Protein Albumin Prealbumin HDL Cholesterol Salicylates Acetaminophen Crossmatch 11/04/18 11/04/18 11/04/18 07:46 11:42 15:45 WBC 11.5 H RBC 3.41 L Hgb 10.4 L Hct 30.8 L MCV MCHC RDW Plt Count Lymph % (Auto) Fleming % (Auto) Fleming # Seg Neutrophils % Seg Neuts % (Manual) Lymphocytes % (Manual) Monocytes % (Manual) Seg Neutrophils # Seg Neutrophils # Man Lymphocytes # (Manual) Monocytes # (Manual) APTT Heparin Anti-Xa Level POC ABG pH POC ABG pCO2 POC ABG pO2 Sodium Potassium Chloride Carbon Dioxide BUN Creatinine Glucose POC Glucose 160 H 149 H Lactic Acid Calcium Phosphorus Total Bilirubin AST ALT Total Creatine Kinase CK-MB (CK-2) Troponin T Total Protein Albumin Prealbumin HDL Cholesterol Salicylates Acetaminophen Crossmatch 11/04/18 11/04/18 11/04/18 15:45 15:45 16:41 WBC RBC Hgb Hct MCV MCHC RDW Plt Count Lymph % (Auto) Fleming % (Auto) Fleming # Seg Neutrophils % Seg Neuts % (Manual) Lymphocytes % (Manual) Monocytes % (Manual) Seg Neutrophils # Seg Neutrophils # Man Lymphocytes # (Manual) Monocytes # (Manual) APTT Heparin Anti-Xa Level POC ABG pH POC ABG pCO2 POC ABG pO2 Sodium 133 L Potassium Chloride 95.6 L Carbon Dioxide BUN Creatinine 0.5 L Glucose 163 H POC Glucose 157 H Lactic Acid Calcium Phosphorus Total Bilirubin AST ALT Total Creatine Kinase CK-MB (CK-2) Troponin T Total Protein Albumin 2.6 L Prealbumin 0.073 L HDL Cholesterol Salicylates Acetaminophen Crossmatch 11/04/18 11/05/18 11/05/18 21:59 08:51 12:13 WBC RBC Hgb Hct MCV MCHC RDW Plt Count Lymph % (Auto) Fleming % (Auto) Fleming # Seg Neutrophils % Seg Neuts % (Manual) Lymphocytes % (Manual) Monocytes % (Manual) Seg Neutrophils # Seg Neutrophils # Man Lymphocytes # (Manual) Monocytes # (Manual) APTT Heparin Anti-Xa Level POC ABG pH POC ABG pCO2 POC ABG pO2 Sodium Potassium Chloride Carbon Dioxide BUN Creatinine Glucose POC Glucose 195 H 187 H 149 H Lactic Acid Calcium Phosphorus Total Bilirubin AST ALT Total Creatine Kinase CK-MB (CK-2) Troponin T Total Protein Albumin Prealbumin HDL Cholesterol Salicylates Acetaminophen Crossmatch 11/05/18 11/05/18 11/06/18 17:15 20:37 07:00 WBC RBC 3.48 L Hgb 11.2 L Hct 31.8 L MCV MCHC 35 H RDW Plt Count Lymph % (Auto) Fleming % (Auto) Fleming # Seg Neutrophils % Seg Neuts % (Manual) Lymphocytes % (Manual) Monocytes % (Manual) Seg Neutrophils # Seg Neutrophils # Man Lymphocytes # (Manual) Monocytes # (Manual) APTT Heparin Anti-Xa Level POC ABG pH POC ABG pCO2 POC ABG pO2 Sodium Potassium Chloride Carbon Dioxide BUN Creatinine Glucose POC Glucose 281 H 203 H Lactic Acid Calcium Phosphorus Total Bilirubin AST ALT Total Creatine Kinase CK-MB (CK-2) Troponin T Total Protein Albumin Prealbumin HDL Cholesterol Salicylates Acetaminophen Crossmatch 11/06/18 11/06/18 11/06/18 07:00 07:31 12:45 WBC RBC Hgb Hct MCV MCHC RDW Plt Count Lymph % (Auto) Fleming % (Auto) Fleming # Seg Neutrophils % Seg Neuts % (Manual) Lymphocytes % (Manual) Monocytes % (Manual) Seg Neutrophils # Seg Neutrophils # Man Lymphocytes # (Manual) Monocytes # (Manual) APTT Heparin Anti-Xa Level POC ABG pH POC ABG pCO2 POC ABG pO2 Sodium 135 L Potassium Chloride 97.3 L Carbon Dioxide BUN Creatinine 0.5 L Glucose 163 H POC Glucose 215 H 183 H Lactic Acid Calcium Phosphorus Total Bilirubin AST ALT Total Creatine Kinase CK-MB (CK-2) Troponin T Total Protein Albumin Prealbumin HDL Cholesterol Salicylates Acetaminophen Crossmatch 11/06/18 11/06/18 11/07/18 17:47 21:05 07:42 WBC RBC Hgb Hct MCV MCHC RDW Plt Count Lymph % (Auto) Fleming % (Auto) Fleming # Seg Neutrophils % Seg Neuts % (Manual) Lymphocytes % (Manual) Monocytes % (Manual) Seg Neutrophils # Seg Neutrophils # Man Lymphocytes # (Manual) Monocytes # (Manual) APTT Heparin Anti-Xa Level POC ABG pH POC ABG pCO2 POC ABG pO2 Sodium Potassium Chloride Carbon Dioxide BUN Creatinine Glucose POC Glucose 141 H 223 H 168 H Lactic Acid Calcium Phosphorus Total Bilirubin AST ALT Total Creatine Kinase CK-MB (CK-2) Troponin T Total Protein Albumin Prealbumin HDL Cholesterol Salicylates Acetaminophen Crossmatch 11/07/18 11:37 WBC RBC Hgb Hct MCV MCHC RDW Plt Count Lymph % (Auto) Fleming % (Auto) Fleming # Seg Neutrophils % Seg Neuts % (Manual) Lymphocytes % (Manual) Monocytes % (Manual) Seg Neutrophils # Seg Neutrophils # Man Lymphocytes # (Manual) Monocytes # (Manual) APTT Heparin Anti-Xa Level POC ABG pH POC ABG pCO2 POC ABG pO2 Sodium Potassium Chloride Carbon Dioxide BUN Creatinine Glucose POC Glucose 120 H Lactic Acid Calcium Phosphorus Total Bilirubin AST ALT Total Creatine Kinase CK-MB (CK-2) Troponin T Total Protein Albumin Prealbumin HDL Cholesterol Salicylates Acetaminophen Crossmatch Allied health notes reviewed: nursing
[2018-11-08] MEDS: PERCOCET 5/325 PO PRN ×3 (05:54→20:29)
[2018-11-08] MEDS: HumuLIN R SUB-Q SCH ×3 (07:30→19:18)
[2018-11-08] MEDS: DUONEB *Not for PRN Use IH SCH ×3 (07:51→19:46)
--- NOTE | 2018-11-08 10:11 | Progress Note ---
Assessment and Plan 58-year-old male with multiple medical issues including multiple strokes status post partial craniectomy in March for prior strokes with bilateral lower extremity ischemia. 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 Hospitalist and neurology has cleared the patient for anticoagulation. Underwent left BKA, right open thrombectomy and aortic stenting and bilateral common iliac artery stenting but right EIA occluded requiring another open thrombectomy and stenting of the right iliac system. L SECOND CHEF and right PT and DP palpable. Right groin incision c/d/i. No hematomas. Left below-knee amputation stump site is looking marginal. It may not be salvageable and require above-knee amputation conversion. Asked the nurse to apply Betadine to the area. Ordered CBC and BMP given drainage. Subjective Date of service: 11/08/18 Principal diagnosis: Ac hypercapnic hypoxemic Resp failure; Drug OD; AE-COPD; NINOSKA; Seizures Interval history: Palpable right dorsalis pedis and posterior tibial. Palpable left common femoral artery. Right forefoot with dry gangrene. Left below-knee amputation evaluated with pinkish drainage from the incision line, and the lateral portion of the stump skin is devitalized with partial extension to the incision line. The devitalized tissue is beginning to tear and drain and is cool. Mild erythema around this area. Patient is having pain from this area. Objective - Constitutional Vitals: Vital Signs - 12hr 11/07/18 11/07/18 11/07/18 22:39 23:38 23:39 Temperature 98.2 F Pulse Rate 64 68 65 Pulse Rate [ Throughout] Respiratory 20 Rate Respiratory Rate [ Throughout] Blood Pressure 101/58 97/61 O2 Sat by Pulse 96 97 Oximetry 11/08/18 11/08/18 11/08/18 05:00 07:52 08:01 Temperature 97.6 F Pulse Rate 74 Pulse Rate [ 65 68 Throughout] Respiratory 20 Rate Respiratory 18 18 Rate [ Throughout] Blood Pressure 106/66 O2 Sat by Pulse 89 95 Oximetry General appearance: Present: mild distress - EENT Eyes: EOM intact ENT: hearing intact - Respiratory Respiratory effort: normal Extremities: abnormal (described in subjective ; right groin incision c/d/i.) - Psychiatric Psychiatric: cooperative - Labs CBC & Chem 7: 11/06/18 07:00 11/06/18 07:00 Labs: Abnormal lab results 11/07/18 11/07/18 11/07/18 Range/Units 11:37 16:21 21:39 POC Glucose 120 H 169 H 127 H (70-105) Medications & Allergies - Medications Allergies/Adverse Reactions: Allergies No Known Allergies Allergy (Verified 10/31/14 11:20) Home Medications: Home Medications Medication Instructions Recorded Confirmed Last Taken Type Gabapentin [Neurontin] 90 mg PO Q8HR 04/22/15 11/01/18 04/21/15 History ALPRAZolam [Xanax TAB] 1 mg PO TID PRN #30 tablet 03/28/16 11/01/18 Unknown Rx Albuterol Sulfate [Ventolin HFA] 2 puff IH Q4H PRN #1 hfa.aer.ad 03/28/16 11/01/18 Unknown Rx Ciprofloxacin HCl [Ciprofloxacin 500 mg PO Q12HR #30 tab 03/28/16 11/01/18 Unknown Rx TAB] Citalopram [celeXA] 10 mg PO QDAY #30 tablet 03/28/16 11/01/18 Unknown Rx Nicotine [Habitrol] 14 mg TD QDAY #30 patch 03/28/16 11/01/18 Unknown Rx Sitagliptin Phos/Metformin HCl 1 tab PO QDAY #30 tbmp.24hr 03/28/16 11/01/18 Unknown Rx [Janumet XR 100-1,000 mg] oxyCODONE /ACETAMINOPHEN [Percocet 1 tab PO Q6H PRN #60 tablet 03/28/16 11/01/18 Unknown Rx 5/325 mg] Active Medications: Generic Name Dose Route Start Last Admin Trade Name Trinity PRN Reason Stop Dose Admin Acetaminophen 650 mg 10/11/18 04:04 10/21/18 22:21 Tylenol PO 650 mg Q4H PRN Administration Pain MILD(1-3)/Fever >100.5/HOLLINS Albuterol 2.5 mg 10/19/18 00:54 Proventil IH Q4HRT PRN Shortness Of Breath Albuterol/Ipratropium 1 ampul 10/19/18 08:00 11/08/18 07:51 Duoneb *Not For Prn Use* IH 1 ampul TIDRT ISAAC Administration Alprazolam 1 mg 10/20/18 13:06 11/07/18 13:43 Xanax PO 1 mg TID PRN Administration Anxiety Apixaban 5 mg 11/08/18 22:00 Eliquis PO Q12HR [facility] Protocol Aspirin 81 mg 11/01/18 16:00 11/07/18 09:07 Halfprin Ec PO 81 mg QDAY ISAAC Administration Buprenorphine HCl 2 each 11/05/18 10:00 11/07/18 11:41 Suboxone 2 Mg-0.5 Mg SL 2 each QDAY ISAAC Administration Citalopram Hydrobromide 20 mg 11/05/18 10:00 11/07/18 09:07 Celexa PO 20 mg QDAY ISAAC Administration Dextrose 0 ml 10/11/18 03:57 10/11/18 10:18 D50w (25gm) Syringe IV 10 ml PRN PRN Administration Hypoglycemia Docusate Sodium 100 mg 11/04/18 22:00 11/07/18 22:33 Colace PO 100 mg BID ISAAC Administration Famotidine 20 mg 10/15/18 10:00 11/07/18 22:34 Pepcid PO 20 mg BID ISAAC Administration Insulin Human Regular 0 units 10/17/18 11:30 11/07/18 22:49 Humulin R SUB-Q Not Given ACHS [facility] Protocol Metoprolol Tartrate 25 mg 10/18/18 22:00 11/07/18 22:39 Lopressor PO 25 mg BID ISAAC Administration Metoprolol Tartrate 2.5 mg 10/18/18 18:51 10/18/18 22:19 Lopressor IV 2.5 mg Q6H PRN Administration Tachyarrhythmias Naloxone HCl 0.1 mg 10/29/18 16:03 Narcan 0.4 Mg/1 Ml IV Q2MIN PRN Res Rate </= 8 or 02 SAT < 92% Ondansetron HCl 4 mg 10/11/18 04:04 11/01/18 22:12 Zofran IV 4 mg Q8H PRN Administration Nausea And Vomiting Oxycodone/Acetaminophen 1 tab 10/18/18 13:45 11/08/18 05:54 Percocet 5/325 PO 1 tab Q6H PRN Administration Pain, Moderate (4-6)
--- NOTE | 2018-11-08 12:01 | Progress Note ---
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 followed by revascularization right leg on 10/31/18. Vascular surgery feels the patient will need evaluation of his devascularized skin along the lateral aspect of his left stump. Left below-knee amputation stump site is looking marginal. It may not be salvageable and require above-knee amputation conversion. -Acute/subacute right CVA, Initial CT head, no acute finding, 10/13/18 found to have left-sided weakness, MRI brain showed numerous acute/subacute multilobar infarcts involving the cerebrum and cerebellum including Hemorrhagic transformation of the right frontal and biparietal lobes, was Not a candidate for tPA, monitor off aspirin per teleneurology, QUIQUE ; no thrombus or shunt, Speech recommended pureed diet -Severe sepsis with shock; present on admission Probably due to LLL aspiration pneumonia, completed total 7 days of antibiotics, off vasopressors -Paroxysmal atrial fibrillation. on Eliquis Cardiology is following -LLL pneumonia: completed treatment -Acute respiratory failure with hypoxia and hypercapnia: Requiring intubation, s/p extubation, treat with nebs and supplemental O2 as needed -DKA, resolved: cont SSI for now, diabetic diet -Acute toxic/metabolic encephalopathy, improved -Seizure disorder; seizure precautions, no new episodes of seizure, Ativan when necessary, neurology did not recommend antiepileptic medications -Elevated troponin/NSTEMI type 2, Echocardiogram for further evaluation - Ef 25- 30%, Cardiology consulted, medical Mx for now, -Acute systolic CHF, Ef 25-30%, anti-failure medications, Cardiology is following -ARF. Etiology secondary to ATN and vasomotor nephropathy, poa, resolved -Hyperkalemia, resolved -Abnormal LFT, Probably due to sepsis, resolving and chronic hepatitis C virus infection, Abdominal US showed no sign of cirrhosis: monitor cmp -Anemia, appears acute on chronic AOCD: monitor closely on iv heparin drip -Severe protein calorie malnutrition, bmi 14.8; nutrition supplements, Dietitian consulted -DVT prophylaxis with Eliquis -GI prophylaxis with famotidine -Tobacco abuse. Patient with a long smoking history of one pack per day or more since age 9. Patient was counseled on smoking cessation. -Disposition: continue inpatient care. Possible rehab vs Subacute rehab placement==>Physical therapy recommended Subacute Rehab but re-evaluation pending. History Interval history: Patient is a 58 yo man with a history of COPD, DM, hypertension, asthma, peripheral neuropathy, chronic hepatitis C virus, panic attack. anxiety disorder, polysubstance abuse including alcohol, cocaine and heroin who presented to [facility] ED on 10/11/18 with AMS. He was diagnosis with septic shock due to pneumonia, placed on abx and vasopressors. He was also diagnosis with DKA/respiratory failure/Status epilepticus/ARF. Patient s/p left BKA, right open thrombectomy and aortic stenting and bilateral common iliac artery stenting but right EIA occluded requiring another open thrombectomy and stenting of the right iliac system. Vascular surgery felt patient will need evaluation of his d evascularized skin along the lateral aspect of his left stump. Left below-knee amputation stump site is looking marginal. It may not be salvageable and require above-knee amputation conversion. No new issues overnight. Hospitalist Physical - Constitutional Vitals: Temp Pulse Resp BP Pulse Ox 97.6 F 68 18 106/66 95 11/08/18 05:00 11/08/18 08:01 11/08/18 08:01 11/08/18 05:00 11/08/18 07:52 General appearance: Present: no acute distress - EENT Eyes: Present: PERRL, EOM intact ENT: hearing intact, clear oral mucosa, dentition normal - Neck Neck: Present: supple, normal ROM - Respiratory Respiratory effort: normal Respiratory: bilateral: CTA - Cardiovascular Rhythm: regular Heart Sounds: Present: S1 & S2. Absent: gallop, rub - Extremities Extremities: no ischemia, No edema, Full ROM - Abdominal General gastrointestinal: soft, non-tender, non-distended, normal bowel sounds - Integumentary Integumentary: Present: clear, warm, dry - Neurologic Neurologic: CNII-XII intact, moves all extremities Results - Labs CBC & Chem 7: 11/06/18 07:00 11/06/18 07:00 Labs: Laboratory Last Values WBC 10.0 K/mm3 (4.5-11.0) 11/06/18 07:00 RBC 3.48 M/mm3 (3.65-5.03) L 11/06/18 07:00 Hgb 11.2 gm/dl (11.8-15.2) L 11/06/18 07:00 Hct 31.8 % (35.5-45.6) L 11/06/18 07:00 MCV 91 fl (84-94) 11/06/18 07:00 MCH 32 pg (28-32) 11/06/18 07:00 MCHC 35 % (32-34) H 11/06/18 07:00 RDW 15.0 % (13.2-15.2) 11/06/18 07:00 Plt Count 399 K/mm3 (140-440) 11/06/18 07:00 Lymph % (Auto) 11.3 % (13.4-35.0) L 10/24/18 05:56 Banks % (Auto) 7.1 % (0.0-7.3) 10/24/18 05:56 Eos % (Auto) 1.0 % (0.0-4.3) 10/24/18 05:56 Baso % (Auto) 0.4 % (0.0-1.8) 10/24/18 05:56 Lymph # 1.3 K/mm3 (1.2-5.4) 10/24/18 05:56 Banks # 0.8 K/mm3 (0.0-0.8) 10/24/18 05:56 Eos # 0.1 K/mm3 (0.0-0.4) 10/24/18 05:56 Baso # 0.0 K/mm3 (0.0-0.1) 10/24/18 05:56 Add Manual Diff Complete 10/30/18 04:22 Total Counted 200 10/30/18 04:22 Seg Neutrophils % Eight Arm Operator 10/30/18 04:22 Seg Neuts % (Manual) 69.0 % (40.0-70.0) 10/30/18 04:22 26.0 % 10/30/18 04:22 1.5 % (13.4-35.0) L 10/30/18 04:22 Reactive Lymphs % (Man) 0 % 10/30/18 04:22 2.0 % (0.0-7.3) 10/30/18 04:22 0 % (0.0-4.3) 10/30/18 04:22 0 % (0.0-1.8) 10/30/18 04:22 1.0 % 10/30/18 04:22 0.5 % 10/30/18 04:22 0 % 10/30/18 04:22 0 % 10/30/18 04:22 Nucleated RBC % Not Reportable 10/30/18 04:22 Seg Neutrophils # 9.4 K/mm3 (1.8-7.7) H 10/24/18 05:56 Seg Neutrophils # Man 18.6 K/mm3 (1.8-7.7) H 10/30/18 04:22 Band Neutrophils # 7.0 K/mm3 10/30/18 04:22 0.4 K/mm3 (1.2-5.4) L 10/30/18 04:22 Abs React Lymphs (Man) 0.0 K/mm3 10/30/18 04:22 0.5 K/mm3 (0.0-0.8) 10/30/18 04:22 0.0 K/mm3 (0.0-0.4) 10/30/18 04:22 0.0 K/mm3 (0.0-0.1) 10/30/18 04:22 0.3 K/mm3 10/30/18 04:22 0.1 K/mm3 10/30/18 04:22 0.0 K/mm3 10/30/18 04:22 Blast Cells # 0.0 K/mm3 10/30/18 04:22 Pathologist Review 10/11/18 00:16 WBC Morphology Not Reportable 10/30/18 04:22 WBC Morphology TNR 10/30/18 04:22 Hypersegmented Neuts Not Reportable 10/30/18 04:22 Hyposegmented Neuts Not Reportable 10/30/18 04:22 Hypogranular Neuts Not Reportable 10/30/18 04:22 Not Reportable 10/30/18 04:22 Not Reportable 10/30/18 04:22 Not Reportable 10/30/18 04:22 Not Reportable 10/30/18 04:22 Not Reportable 10/30/18 04:22 Not Reportable 10/30/18 04:22 Consistent w auto 10/30/18 04:22 Not Reportable 10/30/18 04:22 Plt Clumps, EDTA Not Reportable 10/30/18 04:22 Not Reportable 10/30/18 04:22 Not Reportable 10/30/18 04:22 Not Reportable 10/30/18 04:22 Plt Morphology Comment Not Reportable 10/30/18 04:22 RBC Morphology Not Reportable 10/30/18 04:22 Dimorphic RBCs Not Reportable 10/30/18 04:22 Not Reportable 10/30/18 04:22 Not Reportable 10/30/18 04:22 Not Reportable 10/30/18 04:22 Not Reportable 10/30/18 04:22 Not Reportable 10/30/18 04:22 Not Reportable 10/30/18 04:22 Not Reportable 10/30/18 04:22 Not Reportable 10/30/18 04:22 Not Reportable 10/30/18 04:22 Not Reportable 10/30/18 04:22 Not Reportable 10/30/18 04:22 Not Reportable 10/30/18 04:22 Not Reportable 10/30/18 04:22 Not Reportable 10/30/18 04:22 Not Reportable 10/30/18 04:22 Not Reportable 10/30/18 04:22 Not Reportable 10/30/18 04:22 Not Reportable 10/30/18 04:22 Not Reportable 10/30/18 04:22 Acanthocytes (Spur) Not Reportable 10/30/18 04:22 Rouleaux Not Reportable 10/30/18 04:22 Not Reportable 10/30/18 04:22 Not Reportable 10/30/18 04:22 Not Reportable 10/30/18 04:22 Not Reportable 10/30/18 04:22 Hem Pathologist Commnt No 10/30/18 04:22 PT 13.9 Sec. (12.2-14.9) 10/29/18 07:11 INR 1.01 (0.87-1.13) 10/29/18 07:11 APTT 30.3 Sec. (24.2-36.6) 10/27/18 13:33 Heparin Anti-Xa Level 1.05 U.I./ml (0.3-0.7) H 11/01/18 11:38 Heparin Anti-Xa, Unfract Negative (Negative) 10/15/18 12:00 POC ABG pH 7.393 (7.35-7.45) 10/16/18 12:51 POC ABG pCO2 48.9 (35-45) H 10/16/18 12:51 POC ABG pO2 92 (80-105) 10/16/18 12:51 POC ABG HCO3 29.8 (22-26 mml/L) 10/16/18 12:51 POC ABG Total CO2 31 (23-27mmol/L) 10/16/18 12:51 POC ABG O2 Sat 97 10/16/18 12:51 POC ABG Base Excess 5 ((-2) - (+3)mmol/L) 10/16/18 12:51 35 % 10/16/18 12:51 Sodium 135 mmol/L (137-145) L 11/06/18 07:00 Potassium 4.0 mmol/L (3.6-5.0) 11/06/18 07:00 Chloride 97.3 mmol/L (98-107) L 11/06/18 07:00 Carbon Dioxide 29 mmol/L (22-30) 11/06/18 07:00 13 mmol/L 11/06/18 07:00 BUN 15 mg/dL (9-20) 11/06/18 07:00 0.5 mg/dL (0.8-1.5) L 11/06/18 07:00 Estimated GFR > 60 ml/min 11/06/18 07:00 30 % 11/06/18 07:00 Glucose 163 mg/dL (75-100) H 11/06/18 07:00 POC Glucose 144 (70-105) H 11/08/18 11:48 Lactic Acid 2.70 mmol/L (0.7-2.0) H* 10/11/18 12:30 Calcium 8.5 mg/dL (8.4-10.2) 11/06/18 07:00 Phosphorus 2.80 mg/dL (2.5-4.5) 10/21/18 04:59 Magnesium 1.70 mg/dL (1.7-2.3) 11/01/18 05:52 0.70 mg/dL (0.1-1.2) 11/04/18 15:45 AST 38 units/L (5-40) 11/04/18 15:45 ALT 23 units/L (7-56) 11/04/18 15:45 54 units/L (35-129) 11/04/18 15:45 3647 units/L (55-170) H 10/12/18 04:04 CK-MB (CK-2) 48.3 ng/mL (0.0-4.0) H 10/12/18 04:04 CK-MB (CK-2) Rel Index 1.3 (0-4) 10/12/18 04:04 0.816 ng/mL (0.00-0.029) H* 10/13/18 16:15 6.8 g/dL (6.3-8.2) 11/04/18 15:45 2.6 g/dL (3.9-5) L 11/04/18 15:45 0.6 % 11/04/18 15:45 0.073 g/L (0.200-0.400) L 11/04/18 15:45 Triglycerides 87 mg/dL (2-149) 10/11/18 00:16 Cholesterol 73 mg/dL (50-199) 10/11/18 00:16 51 mg/dL (50-130) 10/11/18 00:16 19 mg/dL (40-59) L 10/11/18 00:16 3.84 % 10/11/18 00:16 See scanned report 10/15/18 12:00 Yellow (Yellow) 10/11/18 01:42 Cloudy (Clear) 10/11/18 01:42 6.0 (5.0-7.0) 10/11/18 01:42 Ur Specific Gruver 1.011 (1.003-1.030) 10/11/18 01:42 100 mg/dl mg/dL (Negative) 10/11/18 01:42 >=500 mg/dL (Negative) 10/11/18 01:42 Neg mg/dL (Negative) 10/11/18 01:42 Mod (Negative) 10/11/18 01:42 Neg (Negative) 10/11/18 01:42 Neg (Negative) 10/11/18 01:42 4.0 mg/dL (<2.0) 10/11/18 01:42 Ur Leukocyte Esterase Neg (Negative) 10/11/18 01:42 5.0 /HPF (0.0-6.0) 10/11/18 01:42 2.0 /HPF (0.0-6.0) 10/11/18 01:42 U Epithel Cells (Auto) < 1.0 /HPF (0-13.0) 10/11/18 01:42 Amorphous Crystals 1+ 10/11/18 01:42 Few /HPF 10/11/18 01:42 2+ /HPF (TOP AND [employer]IM [employer]ER) 10/11/18 01:42 Vancomycin Trough 8.3 ug/mL (5.0-20.0) 10/13/18 05:40 Salicylates < 0.3 mg/dL (2.8-20.0) L 10/11/18 00:16 Presumptive positive 10/11/18 01:42 Presumptive negative 10/11/18 01:42 Acetaminophen < 5.0 ug/mL (10.0-30.0) L 10/11/18 00:16 Ur Barbiturates Screen Presumptive negative 10/11/18 01:42 Ur Phencyclidine Scrn Presumptive negative 10/11/18 01:42 Ur Amphetamines Screen Presumptive positive 10/11/18 01:42 U Benzodiazepines Scrn Presumptive positive 10/11/18 01:42 Presumptive negative 10/11/18 01:42 U Marijuana (THC) Screen Presumptive negative 10/11/18 01:42 Disclamer 10/11/18 01:42 Plasma/Serum Alcohol < 0.01 % (0-0.07) 10/11/18 00:16 Heparin-induced Plt Ab Negative (Negative) 10/15/18 12:00 UF Heparin High Dose 0 % Release 10/15/18 12:00 AURELIO UFH Low Dose 0.1 0 % Release 10/15/18 12:00 AURELIO UFH Low Dose 0.5 0 % Release 10/15/18 12:00 Blood Type O POSITIVE 10/31/18 08:07 Antibody Screen Positive 10/31/18 08:07 Antibody Identification Negative 10/31/18 08:07 Direct Antiglob Test Negative 10/31/18 08:07 SHASHANK, Poly Interpret Negative 10/31/18 08:07 Crossmatch See Detail 10/31/18 08:07 Active Medications - Current Medications Current Medications: Generic Name Dose Route Start Last Admin Trade Name Freq PRN Reason Stop Dose Admin Acetaminophen 650 mg 10/11/18 04:04 10/21/18 22:21 Tylenol PO 650 mg Q4H PRN Administration Pain MILD(1-3)/Fever >100.5/HOLLINS Albuterol 2.5 mg 10/19/18 00:54 Proventil IH Q4HRT PRN Shortness Of Breath Albuterol/Ipratropium 1 ampul 10/19/18 08:00 11/08/18 07:51 Duoneb *Not For Prn Use* IH 1 ampul TIDRT ISAAC Administration Alprazolam 1 mg 10/20/18 13:06 11/07/18 13:43 Xanax PO 1 mg TID PRN Administration Anxiety Apixaban 5 mg 11/08/18 22:00 Eliquis PO Q12HR [facility] Protocol Aspirin 81 mg 11/01/18 16:00 11/07/18 09:07 Halfprin Ec PO 81 mg QDAY ISAAC Administration Buprenorphine HCl 2 each 11/05/18 10:00 11/07/18 11:41 Suboxone 2 Mg-0.5 Mg SL 2 each QDAY ISAAC Administration Citalopram Hydrobromide 20 mg 11/05/18 10:00 11/07/18 09:07 Celexa PO 20 mg QDAY ISAAC Administration Dextrose 0 ml 10/11/18 03:57 10/11/18 10:18 D50w (25gm) Syringe IV 10 ml PRN PRN Administration Hypoglycemia Docusate Sodium 100 mg 11/04/18 22:00 11/07/18 22:33 Colace PO 100 mg BID ISAAC Administration Famotidine 20 mg 10/15/18 10:00 11/07/18 22:34 Pepcid PO 20 mg BID ISAAC Administration Insulin Human Regular 0 units 10/17/18 11:30 11/07/18 22:49 Humulin R SUB-Q Not Given ACHS [facility] Protocol Metoprolol Tartrate 25 mg 10/18/18 22:00 11/07/18 22:39 Lopressor PO 25 mg BID ISAAC Administration Metoprolol Tartrate 2.5 mg 10/18/18 18:51 10/18/18 22:19 Lopressor IV 2.5 mg Q6H PRN Administration Tachyarrhythmias Naloxone HCl 0.1 mg 10/29/18 16:03 Narcan 0.4 Mg/1 Ml IV Q2MIN PRN Res Rate </= 8 or 02 SAT < 92% Ondansetron HCl 4 mg 10/11/18 04:04 11/01/18 22:12 Zofran IV 4 mg Q8H PRN Administration Nausea And Vomiting Oxycodone/Acetaminophen 1 tab 10/18/18 13:45 11/08/18 05:54 Percocet 5/325 PO 1 tab Q6H PRN Administration Pain, Moderate (4-6) Nutrition/Malnutrition Assess - Dietary Evaluation Nutrition/Malnutrition Findings: Nutrition Notes Start: 10/11/18 12:39 Freq: Status: Active Protocol: Document 11/06/18 16:04 SHERLY (Rec: 11/06/18 16:14 [facility] [id number]) Nutrition Notes Initial or Follow up Reassessment Current Diagnosis COPD,Diabetes,Sepsis, Hypertension,Heart Failure, Stroke Other Pertinent Diagnosis s/p (L) BKA Current Diet Mech soft + Glucerna and Hernesto BID Labs/Tests BG 163 Pertinent Medications Reviewed Height 6 ft 3 in Weight 55.2 kg [place] Body Weight (kg) 89.09 BMI 15.2 Weight change and time frame Current wt obtained from bed scale. Adj wt for BKA: 58.66kg Adj BMI: 16.1 Subjective/Other Information Pt has consumed 55% of meals over the past two days. He is confused at times and requires assistance during meal times. RD assisted pt with lunch today; he ate <25% of meal. He is edentulous, but does not want pureed foods. Takes him a long time to chew foods. Pt encouraged to drink ONS ( Glucerna and Hernesto) Percent of energy/protein needs met: 62% energy 66% pro (without ONS) Burn Absent Trauma Absent #2 Nutrition Diagnosis Inadequate oral intake Diagnosis Progress(for reassessment Continues documentation) #1 Nutrition Diagnosis Malnutrition Diagnosis Progress(for reassessment Continues documentation) Is patient on ventilator? No Is Patient Ambulatory and/or Out of Bed Yes REE-([facility]-ambulatory/OOB) [ 1907.919 [id number]] Kcal/Kg value to use for calculation 40 Approximate Energy Requirements Using 2208 kcal/Kg Calculation Used for Recommendations Kcal/kg Additional Notes Pro needs 1.5-2g/k-110g/ day Fluid needs 1ml/kcal Nutrition Intervention Change Diet Order: Continue current diet order Add Supplement/Snack (indicate name/kcal Glucerna BID + Hernesto BID /protein ) Provides kCal: 630 Provides Protein (gm) 25 Goal #1 PO intake of meals plus ONS to meet 100% energy and pro needs Goal #2 Wt maintenance and/or gain Follow-Up By: 11/13/18 Additional Comments F/U: intakes, wt
[2018-11-08] MEDS: LOPRESSOR PO SCH ×2 (12:29→22:20)
[2018-11-08] MEDS: PEPCID PO SCH ×2 (12:29→22:19)
[2018-11-08] MEDS: HALFPRIN EC PO SCH (12:29)
[2018-11-08] MEDS: celeXA PO SCH (12:29)
[2018-11-08] MEDS: COLACE PO SCH ×2 (12:47→22:19)
--- NOTE | 2018-11-08 13:19 | Progress Note ---
Assessment and Plan Acute hypoxemic respiratory failure, on mechanical ventilator support. Drug overdose. Acute chronic obstructive pulmonary disease exacerbation. Severe PVD Witnessed seizure en route. Acute kidney injury. Leukocytosis. Hypercapnia. Hyperkalemia. Metabolic acidosis. Lactic acidosis. Non-ST elevation myocardial infarction. Elevated serum transaminases. - asked [employer] to assist with feeding him - continue aspiration precautions - continue Eliquis re: PVD - continue bronchodilators with pulmonary hygiene per RT - continue GI & VTE prophylaxis - prn supplemental oxygen to keep O2 sats 88-90% - follow clinically off AB's - Accuchecks with glycemic control. Target glucose of 140-180 mg/dL - Maintenance of sleep -wake cycle - Mobility as tolerated by hemodynamics - Influenza and pneumonia vaccination per protocol ..care plan discussed at length with RN/RT at the bedside Subjective Date of service: 11/08/18 Principal diagnosis: Ac hypercapnic hypoxemic Resp failure; Drug OD; AE-COPD; NINOSKA; Seizures Interval history: Patient is seen today for: Acute hypoxemic respiratory failure, on mechanical ventilator support; Drug overdose; Acute chronic obstructive pulmonary disease exacerbation; Witnessed seizure en route; Acute kidney injury; Leukocytosis; Hypercapnia. Seen and examined at bedside; 24-hour events reviewed; nursing and respiratory care staff consulted; no adverse overnight events reported to me; resting peacefully in bed; denies any chest or other uncontrolled pain; no emesis or overt aspiration; no new issues otherwise Objective Vital Signs - 12hr 11/08/18 11/08/18 11/08/18 05:00 06:54 07:52 Temperature 97.6 F Pulse Rate 74 Pulse Rate [ 65 Throughout] Respiratory 20 20 Rate Respiratory 18 Rate [ Throughout] Blood Pressure 106/66 Blood Pressure [Right] O2 Sat by Pulse 89 95 Oximetry 11/08/18 11/08/18 11/08/18 08:01 10:40 12:28 Temperature 98.1 F Pulse Rate 67 Pulse Rate [ 68 Throughout] Respiratory 18 20 Rate Respiratory 18 Rate [ Throughout] Blood Pressure Blood Pressure 107/61 [Right] O2 Sat by Pulse 93 Oximetry Constitutional: no acute distress, asleep, other (middle aged but chronically ill looking CM; Atraumatic) Eyes: non-icteric ENT: oropharynx moist, other (mallampati 2) Neck: supple, no lymphadenopathy, no JVD Effort: normal Ascultation: Bilateral: diminished breath sounds, rhonchi (scant) Percussion: Bilateral: not dull Cardiovascular: irregular rhythm, other (No R/M) Gastrointestinal: normoactive bowel sounds, soft, non-tender, non-distended Integumentary: other (s/p left BKA) Extremities: no edema, other (S/P Left BKA) Neurologic: normal mental status, non-focal exam (grossly), pupils equal and round, other (Left hemiparesis, improving) Psychiatric: mood appropriate, affect normal CBC and BMP: 11/09/18 06:06 11/09/18 06:06 ABG, PT/INR, D-dimer: ABG POC ABG pH 7.393 (7.35-7.45) 10/16/18 12:51 POC ABG pCO2 48.9 (35-45) H 10/16/18 12:51 POC ABG pO2 92 (80-105) 10/16/18 12:51 POC ABG HCO3 29.8 (22-26 mml/L) 10/16/18 12:51 POC ABG Total CO2 31 (23-27mmol/L) 10/16/18 12:51 POC ABG O2 Sat 97 10/16/18 12:51 PT/INR, D-dimer PT 13.9 Sec. (12.2-14.9) 10/29/18 07:11 INR 1.01 (0.87-1.13) 10/29/18 07:11 Abnormal lab findings: Abnormal Labs 10/11/18 10/11/18 10/11/18 00:16 00:16 00:16 WBC 20.1 H RBC Hgb Hct MCV 98 H MCHC RDW 15.4 H Plt Count Lymph % (Auto) [place] % (Auto) [place] # Seg Neutrophils % Seg Neuts % (Manual) Lymphocytes % (Manual) 5.0 L Monocytes % (Manual) 25.0 H Seg Neutrophils # Seg Neutrophils # Man 9.2 H Lymphocytes # (Manual) 1.0 L Monocytes # (Manual) 5.0 H APTT Heparin Anti-Xa Level POC ABG pH POC ABG pCO2 POC ABG pO2 Sodium Potassium 5.8 H Chloride Carbon Dioxide 17 L BUN Creatinine 2.2 H Glucose 348 H POC Glucose Lactic Acid 13.70 H* Calcium 7.7 L Phosphorus Total Bilirubin 1.50 H AST 179 H ALT 110 H Total Creatine Kinase 324 H CK-MB (CK-2) Troponin T 0.257 H* Total Protein 5.9 L Albumin 2.9 L Prealbumin HDL Cholesterol 19 L Salicylates Acetaminophen Crossmatch 10/11/18 10/11/18 10/11/18 00:16 00:16 01:21 WBC RBC Hgb Hct MCV MCHC RDW Plt Count Lymph % (Auto) [place] % (Auto) [place] # Seg Neutrophils % Seg Neuts % (Manual) Lymphocytes % (Manual) Monocytes % (Manual) Seg Neutrophils # Seg Neutrophils # Man Lymphocytes # (Manual) Monocytes # (Manual) APTT Heparin Anti-Xa Level POC ABG pH 7.110 L POC ABG pCO2 50.3 H POC ABG pO2 65 L Sodium Potassium Chloride Carbon Dioxide BUN Creatinine Glucose POC Glucose Lactic Acid Calcium Phosphorus Total Bilirubin AST ALT Total Creatine Kinase CK-MB (CK-2) Troponin T Total Protein Albumin Prealbumin HDL Cholesterol Salicylates < 0.3 L Acetaminophen < 5.0 L Crossmatch 10/11/18 10/11/18 10/11/18 01:22 03:27 04:14 WBC RBC Hgb Hct MCV MCHC RDW Plt Count Lymph % (Auto) [place] % (Auto) [place] # Seg Neutrophils % Seg Neuts % (Manual) Lymphocytes % (Manual) Monocytes % (Manual) Seg Neutrophils # Seg Neutrophils # Man Lymphocytes # (Manual) Monocytes # (Manual) APTT Heparin Anti-Xa Level POC ABG pH POC ABG pCO2 POC ABG pO2 Sodium Potassium Chloride Carbon Dioxide BUN Creatinine Glucose POC Glucose Lactic Acid 8.50 H* 4.10 H* Calcium Phosphorus 4.90 H Total Bilirubin AST ALT Total Creatine Kinase CK-MB (CK-2) Troponin T Total Protein Albumin Prealbumin HDL Cholesterol Salicylates Acetaminophen Crossmatch 10/11/18 10/11/18 10/11/18 04:14 04:14 04:14 WBC RBC Hgb Hct MCV MCHC RDW Plt Count Lymph % (Auto) [place] % (Auto) [place] # Seg Neutrophils % Seg Neuts % (Manual) Lymphocytes % (Manual) Monocytes % (Manual) Seg Neutrophils # Seg Neutrophils # Man Lymphocytes # (Manual) Monocytes # (Manual) APTT Heparin Anti-Xa Level POC ABG pH POC ABG pCO2 POC ABG pO2 Sodium Potassium 5.6 H Chloride Carbon Dioxide 19 L BUN Creatinine 1.6 H Glucose 329 H POC Glucose 328 H Lactic Acid Calcium 7.3 L Phosphorus Total Bilirubin AST ALT Total Creatine Kinase CK-MB (CK-2) Troponin T 1.130 H* D Total Protein Albumin Prealbumin HDL Cholesterol Salicylates Acetaminophen Crossmatch 10/11/18 10/11/18 10/11/18 05:10 05:32 05:58 WBC RBC Hgb Hct MCV MCHC RDW Plt Count Lymph % (Auto) [place] % (Auto) [place] # Seg Neutrophils % Seg Neuts % (Manual) Lymphocytes % (Manual) Monocytes % (Manual) Seg Neutrophils # Seg Neutrophils # Man Lymphocytes # (Manual) Monocytes # (Manual) APTT Heparin Anti-Xa Level POC ABG pH 7.259 L POC ABG pCO2 45.6 H POC ABG pO2 Sodium Potassium Chloride 108.6 H Carbon Dioxide 20 L BUN Creatinine 1.8 H Glucose 269 H POC Glucose 273 H Lactic Acid Calcium 7.0 L Phosphorus Total Bilirubin AST ALT Total Creatine Kinase CK-MB (CK-2) Troponin T Total Protein Albumin Prealbumin HDL Cholesterol Salicylates Acetaminophen Crossmatch 10/11/18 10/11/18 10/11/18 05:58 06:39 07:00 WBC RBC Hgb Hct MCV MCHC RDW Plt Count Lymph % (Auto) [place] % (Auto) [place] # Seg Neutrophils % Seg Neuts % (Manual) Lymphocytes % (Manual) Monocytes % (Manual) Seg Neutrophils # Seg Neutrophils # Man Lymphocytes # (Manual) Monocytes # (Manual) APTT Heparin Anti-Xa Level POC ABG pH POC ABG pCO2 POC ABG pO2 Sodium Potassium Chloride Carbon Dioxide BUN Creatinine Glucose POC Glucose 247 H Lactic Acid 3.20 H* 3.30 H* Calcium Phosphorus Total Bilirubin AST ALT Total Creatine Kinase CK-MB (CK-2) Troponin T Total Protein Albumin Prealbumin HDL Cholesterol Salicylates Acetaminophen Crossmatch 10/11/18 10/11/18 10/11/18 07:00 07:30 07:36 WBC RBC Hgb Hct MCV MCHC RDW Plt Count Lymph % (Auto) [place] % (Auto) [place] # Seg Neutrophils % Seg Neuts % (Manual) Lymphocytes % (Manual) Monocytes % (Manual) Seg Neutrophils # Seg Neutrophils # Man Lymphocytes # (Manual) Monocytes # (Manual) APTT Heparin Anti-Xa Level POC ABG pH POC ABG pCO2 POC ABG pO2 Sodium 146 H Potassium Chloride 112.1 H Carbon Dioxide 21 L BUN Creatinine 1.6 H Glucose 218 H POC Glucose Lactic Acid 3.20 H* Calcium 7.0 L Phosphorus Total Bilirubin AST ALT Total Creatine Kinase CK-MB (CK-2) Troponin T 1.020 H* Total Protein Albumin Prealbumin HDL Cholesterol Salicylates Acetaminophen Crossmatch 10/11/18 10/11/18 10/11/18 07:43 08:29 08:29 WBC RBC Hgb 16.2 H Hct 49.9 H D MCV MCHC RDW Plt Count Lymph % (Auto) [place] % (Auto) [place] # Seg Neutrophils % Seg Neuts % (Manual) Lymphocytes % (Manual) Monocytes % (Manual) Seg Neutrophils # Seg Neutrophils # Man Lymphocytes # (Manual) Monocytes # (Manual) APTT Heparin Anti-Xa Level POC ABG pH POC ABG pCO2 POC ABG pO2 Sodium Potassium Chloride Carbon Dioxide BUN Creatinine Glucose POC Glucose 174 H Lactic Acid 3.90 H* Calcium Phosphorus Total Bilirubin AST ALT Total Creatine Kinase CK-MB (CK-2) Troponin T Total Protein Albumin Prealbumin HDL Cholesterol Salicylates Acetaminophen Crossmatch 10/11/18 10/11/18 10/11/18 08:29 08:42 11:05 WBC RBC Hgb Hct MCV MCHC RDW Plt Count Lymph % (Auto) [place] % (Auto) [place] # Seg Neutrophils % Seg Neuts % (Manual) Lymphocytes % (Manual) Monocytes % (Manual) Seg Neutrophils # Seg Neutrophils # Man Lymphocytes # (Manual) Monocytes # (Manual) APTT 24.1 L Heparin Anti-Xa Level POC ABG pH POC ABG pCO2 POC ABG pO2 Sodium 147 H Potassium Chloride 113.3 H Carbon Dioxide 21 L BUN Creatinine 1.7 H Glucose 119 H POC Glucose 164 H Lactic Acid Calcium 7.7 L Phosphorus Total Bilirubin AST ALT Total Creatine Kinase CK-MB (CK-2) Troponin T Total Protein Albumin Prealbumin HDL Cholesterol Salicylates Acetaminophen Crossmatch 10/11/18 10/11/18 10/11/18 11:05 11:06 12:30 WBC RBC Hgb Hct MCV MCHC RDW Plt Count Lymph % (Auto) [place] % (Auto) [place] # Seg Neutrophils % Seg Neuts % (Manual) Lymphocytes % (Manual) Monocytes % (Manual) Seg Neutrophils # Seg Neutrophils # Man Lymphocytes # (Manual) Monocytes # (Manual) APTT Heparin Anti-Xa Level POC ABG pH POC ABG pCO2 POC ABG pO2 Sodium 148 H Potassium Chloride 113.4 H Carbon Dioxide 21 L BUN Creatinine 1.6 H Glucose 119 H POC Glucose 116 H Lactic Acid 3.20 H* Calcium 7.5 L Phosphorus Total Bilirubin AST ALT Total Creatine Kinase CK-MB (CK-2) Troponin T Total Protein Albumin Prealbumin HDL Cholesterol Salicylates Acetaminophen Crossmatch 10/11/18 10/11/18 10/11/18 12:30 13:16 13:25 WBC RBC Hgb Hct MCV MCHC RDW Plt Count Lymph % (Auto) [place] % (Auto) [place] # Seg Neutrophils % Seg Neuts % (Manual) Lymphocytes % (Manual) Monocytes % (Manual) Seg Neutrophils # Seg Neutrophils # Man Lymphocytes # (Manual) Monocytes # (Manual) APTT Heparin Anti-Xa Level POC ABG pH 7.247 L POC ABG pCO2 48.4 H POC ABG pO2 Sodium Potassium Chloride Carbon Dioxide BUN Creatinine Glucose POC Glucose 112 H Lactic Acid 2.70 H* Calcium Phosphorus Total Bilirubin AST ALT Total Creatine Kinase CK-MB (CK-2) Troponin T Total Protein Albumin Prealbumin HDL Cholesterol Salicylates Acetaminophen Crossmatch 10/11/18 10/11/18 10/11/18 14:41 15:27 16:13 WBC RBC Hgb Hct MCV MCHC RDW Plt Count Lymph % (Auto) [place] % (Auto) [place] # Seg Neutrophils % Seg Neuts % (Manual) Lymphocytes % (Manual) Monocytes % (Manual) Seg Neutrophils # Seg Neutrophils # Man Lymphocytes # (Manual) Monocytes # (Manual) APTT Heparin Anti-Xa Level POC ABG pH POC ABG pCO2 POC ABG pO2 Sodium Potassium Chloride Carbon Dioxide BUN Creatinine Glucose POC Glucose 127 H 141 H 134 H Lactic Acid Calcium Phosphorus Total Bilirubin AST ALT Total Creatine Kinase CK-MB (CK-2) Troponin T Total Protein Albumin Prealbumin HDL Cholesterol Salicylates Acetaminophen Crossmatch 10/11/18 10/11/18 10/11/18 17:18 18:23 19:38 WBC RBC Hgb Hct MCV MCHC RDW Plt Count Lymph % (Auto) [place] % (Auto) [place] # Seg Neutrophils % Seg Neuts % (Manual) Lymphocytes % (Manual) Monocytes % (Manual) Seg Neutrophils # Seg Neutrophils # Man Lymphocytes # (Manual) Monocytes # (Manual) APTT Heparin Anti-Xa Level POC ABG pH POC ABG pCO2 POC ABG pO2 Sodium 148 H Potassium Chloride 112.7 H Carbon Dioxide BUN 23 H Creatinine Glucose 143 H POC Glucose 132 H 129 H Lactic Acid Calcium 7.9 L Phosphorus Total Bilirubin AST ALT Total Creatine Kinase CK-MB (CK-2) Troponin T Total Protein Albumin Prealbumin HDL Cholesterol Salicylates Acetaminophen Crossmatch 10/11/18 10/11/18 10/11/18 20:19 20:36 21:01 WBC RBC Hgb Hct MCV MCHC RDW Plt Count Lymph % (Auto) [place] % (Auto) [place] # Seg Neutrophils % Seg Neuts % (Manual) Lymphocytes % (Manual) Monocytes % (Manual) Seg Neutrophils # Seg Neutrophils # Man Lymphocytes # (Manual) Monocytes # (Manual) APTT Heparin Anti-Xa Level POC ABG pH 7.281 L POC ABG pCO2 POC ABG pO2 Sodium Potassium Chloride Carbon Dioxide BUN Creatinine Glucose POC Glucose 129 H 151 H Lactic Acid Calcium Phosphorus Total Bilirubin AST ALT Total Creatine Kinase CK-MB (CK-2) Troponin T Total Protein Albumin Prealbumin HDL Cholesterol Salicylates Acetaminophen Crossmatch 10/11/18 10/11/18 10/12/18 22:04 23:15 01:18 WBC RBC Hgb Hct MCV MCHC RDW Plt Count Lymph % (Auto) [place] % (Auto) [place] # Seg Neutrophils % Seg Neuts % (Manual) Lymphocytes % (Manual) Monocytes % (Manual) Seg Neutrophils # Seg Neutrophils # Man Lymphocytes # (Manual) Monocytes # (Manual) APTT Heparin Anti-Xa Level POC ABG pH POC ABG pCO2 POC ABG pO2 Sodium Potassium Chloride Carbon Dioxide BUN Creatinine Glucose POC Glucose 147 H 143 H 158 H Lactic Acid Calcium Phosphorus Total Bilirubin AST ALT Total Creatine Kinase CK-MB (CK-2) Troponin T Total Protein Albumin Prealbumin HDL Cholesterol Salicylates Acetaminophen Crossmatch 10/12/18 10/12/18 10/12/18 02:13 03:18 04:04 WBC RBC Hgb Hct MCV MCHC RDW Plt Count Lymph % (Auto) [place] % (Auto) [place] # Seg Neutrophils % Seg Neuts % (Manual) Lymphocytes % (Manual) Monocytes % (Manual) Seg Neutrophils # Seg Neutrophils # Man Lymphocytes # (Manual) Monocytes # (Manual) APTT Heparin Anti-Xa Level POC ABG pH POC ABG pCO2 POC ABG pO2 Sodium 147 H Potassium Chloride 111.1 H Carbon Dioxide BUN 30 H Creatinine 2.0 H Glucose 154 H POC Glucose 148 H 142 H Lactic Acid Calcium 8.1 L Phosphorus Total Bilirubin AST 269 H ALT 204 H Total Creatine Kinase 3647 H CK-MB (CK-2) 48.3 H Troponin T 2.230 H* D Total Protein 5.8 L Albumin 2.6 L Prealbumin HDL Cholesterol Salicylates Acetaminophen Crossmatch 10/12/18 10/12/18 10/12/18 04:04 04:08 04:19 WBC 24.4 H RBC Hgb Hct MCV MCHC RDW Plt Count Lymph % (Auto) [place] % (Auto) [place] # Seg Neutrophils % Seg Neuts % (Manual) 32.0 L Lymphocytes % (Manual) Monocytes % (Manual) 8.0 H Seg Neutrophils # Seg Neutrophils # Man 7.8 H Lymphocytes # (Manual) Monocytes # (Manual) 2.0 H APTT Heparin Anti-Xa Level POC ABG pH 7.317 L POC ABG pCO2 49.3 H POC ABG pO2 Sodium Potassium Chloride Carbon Dioxide BUN Creatinine Glucose POC Glucose 143 H Lactic Acid Calcium Phosphorus Total Bilirubin AST ALT Total Creatine Kinase CK-MB (CK-2) Troponin T Total Protein Albumin Prealbumin HDL Cholesterol Salicylates Acetaminophen Crossmatch 10/12/18 10/12/18 10/12/18 05:29 06:52 08:09 WBC RBC Hgb Hct MCV MCHC RDW Plt Count Lymph % (Auto) [place] % (Auto) [place] # Seg Neutrophils % Seg Neuts % (Manual) Lymphocytes % (Manual) Monocytes % (Manual) Seg Neutrophils # Seg Neutrophils # Man Lymphocytes # (Manual) Monocytes # (Manual) APTT Heparin Anti-Xa Level POC ABG pH 7.322 L POC ABG pCO2 46.5 H POC ABG pO2 Sodium Potassium Chloride Carbon Dioxide BUN Creatinine Glucose POC Glucose 196 H 226 H Lactic Acid Calcium Phosphorus Total Bilirubin AST ALT Total Creatine Kinase CK-MB (CK-2) Troponin T Total Protein Albumin Prealbumin HDL Cholesterol Salicylates Acetaminophen Crossmatch 10/12/18 10/12/18 10/12/18 08:38 10:03 15:50 WBC RBC Hgb Hct MCV MCHC RDW Plt Count Lymph % (Auto) [place] % (Auto) [place] # Seg Neutrophils % Seg Neuts % (Manual) Lymphocytes % (Manual) Monocytes % (Manual) Seg Neutrophils # Seg Neutrophils # Man Lymphocytes # (Manual) Monocytes # (Manual) APTT Heparin Anti-Xa Level POC ABG pH POC ABG pCO2 POC ABG pO2 Sodium Potassium Chloride Carbon Dioxide BUN Creatinine Glucose POC Glucose 138 H 148 H 221 H Lactic Acid Calcium Phosphorus Total Bilirubin AST ALT Total Creatine Kinase CK-MB (CK-2) Troponin T Total Protein Albumin Prealbumin HDL Cholesterol Salicylates Acetaminophen Crossmatch 10/12/18 10/12/18 10/12/18 18:39 20:56 21:34 WBC RBC Hgb Hct MCV MCHC RDW Plt Count Lymph % (Auto) [place] % (Auto) [place] # Seg Neutrophils % Seg Neuts % (Manual) Lymphocytes % (Manual) Monocytes % (Manual) Seg Neutrophils # Seg Neutrophils # Man Lymphocytes # (Manual) Monocytes # (Manual) APTT Heparin Anti-Xa Level POC ABG pH 7.336 L POC ABG pCO2 46.0 H POC ABG pO2 Sodium Potassium Chloride Carbon Dioxide BUN Creatinine Glucose POC Glucose 255 H 260 H Lactic Acid Calcium Phosphorus Total Bilirubin AST ALT Total Creatine Kinase CK-MB (CK-2) Troponin T Total Protein Albumin Prealbumin HDL Cholesterol Salicylates Acetaminophen Crossmatch 10/13/18 10/13/18 10/13/18 02:29 05:09 05:40 WBC 17.0 H RBC Hgb Hct MCV MCHC RDW Plt Count Lymph % (Auto) [place] % (Auto) 9.2 H [place] # 1.6 H Seg Neutrophils % 76.2 H Seg Neuts % (Manual) Lymphocytes % (Manual) Monocytes % (Manual) Seg Neutrophils # 12.9 H Seg Neutrophils # Man Lymphocytes # (Manual) Monocytes # (Manual) APTT Heparin Anti-Xa Level POC ABG pH POC ABG pCO2 POC ABG pO2 Sodium Potassium Chloride Carbon Dioxide BUN Creatinine Glucose POC Glucose 216 H 249 H Lactic Acid Calcium Phosphorus Total Bilirubin AST ALT Total Creatine Kinase CK-MB (CK-2) Troponin T Total Protein Albumin Prealbumin HDL Cholesterol Salicylates Acetaminophen Crossmatch 10/13/18 10/13/18 10/13/18 05:40 05:40 09:46 WBC RBC Hgb Hct MCV MCHC RDW Plt Count Lymph % (Auto) [place] % (Auto) [place] # Seg Neutrophils % Seg Neuts % (Manual) Lymphocytes % (Manual) Monocytes % (Manual) Seg Neutrophils # Seg Neutrophils # Man Lymphocytes # (Manual) Monocytes # (Manual) APTT Heparin Anti-Xa Level POC ABG pH POC ABG pCO2 POC ABG pO2 Sodium 146 H Potassium Chloride 109.8 H Carbon Dioxide BUN 35 H Creatinine Glucose 245 H POC Glucose 235 H Lactic Acid Calcium 7.9 L Phosphorus Total Bilirubin AST ALT Total Creatine Kinase CK-MB (CK-2) Troponin T 0.952 H* D Total Protein Albumin Prealbumin HDL Cholesterol Salicylates Acetaminophen Crossmatch 10/13/18 10/13/18 10/13/18 13:58 16:15 17:30 WBC RBC Hgb Hct MCV MCHC RDW Plt Count Lymph % (Auto) [place] % (Auto) [place] # Seg Neutrophils % Seg Neuts % (Manual) Lymphocytes % (Manual) Monocytes % (Manual) Seg Neutrophils # Seg Neutrophils # Man Lymphocytes # (Manual) Monocytes # (Manual) APTT Heparin Anti-Xa Level POC ABG pH POC ABG pCO2 51.2 H POC ABG pO2 Sodium Potassium Chloride Carbon Dioxide BUN Creatinine Glucose POC Glucose 139 H Lactic Acid Calcium Phosphorus Total Bilirubin AST ALT Total Creatine Kinase CK-MB (CK-2) Troponin T 0.816 H* Total Protein Albumin Prealbumin HDL Cholesterol Salicylates Acetaminophen Crossmatch 10/13/18 10/14/18 10/14/18 21:25 01:49 04:52 WBC RBC Hgb Hct MCV MCHC RDW Plt Count Lymph % (Auto) [place] % (Auto) [place] # Seg Neutrophils % Seg Neuts % (Manual) Lymphocytes % (Manual) Monocytes % (Manual) Seg Neutrophils # Seg Neutrophils # Man Lymphocytes # (Manual) Monocytes # (Manual) APTT Heparin Anti-Xa Level POC ABG pH POC ABG pCO2 56.0 H POC ABG pO2 Sodium Potassium Chloride Carbon Dioxide BUN Creatinine Glucose POC Glucose 205 H 166 H Lactic Acid Calcium Phosphorus Total Bilirubin AST ALT Total Creatine Kinase CK-MB (CK-2) Troponin T Total Protein Albumin Prealbumin HDL Cholesterol Salicylates Acetaminophen Crossmatch 10/14/18 10/14/18 10/14/18 05:32 09:45 09:45 WBC RBC Hgb 11.4 L Hct 34.5 L MCV MCHC RDW Plt Count 139 L Lymph % (Auto) [place] % (Auto) [place] # Seg Neutrophils % Seg Neuts % (Manual) Lymphocytes % (Manual) Monocytes % (Manual) Seg Neutrophils # Seg Neutrophils # Man Lymphocytes # (Manual) Monocytes # (Manual) APTT Heparin Anti-Xa Level POC ABG pH POC ABG pCO2 POC ABG pO2 Sodium 148 H Potassium Chloride 107.3 H Carbon Dioxide 34 H D BUN Creatinine 0.7 L D Glucose 191 H POC Glucose 164 H Lactic Acid Calcium 7.3 L Phosphorus Total Bilirubin AST 110 H ALT 91 H Total Creatine Kinase CK-MB (CK-2) Troponin T Total Protein 4.9 L Albumin 2.0 L Prealbumin HDL Cholesterol Salicylates Acetaminophen Crossmatch 10/14/18 10/14/18 10/14/18 10:54 12:20 18:30 WBC RBC Hgb Hct MCV MCHC RDW Plt Count Lymph % (Auto) [place] % (Auto) [place] # Seg Neutrophils % Seg Neuts % (Manual) Lymphocytes % (Manual) Monocytes % (Manual) Seg Neutrophils # Seg Neutrophils # Man Lymphocytes # (Manual) Monocytes # (Manual) APTT Heparin Anti-Xa Level POC ABG pH POC ABG pCO2 POC ABG pO2 Sodium Potassium Chloride Carbon Dioxide BUN Creatinine Glucose POC Glucose 173 H 158 H 108 H Lactic Acid Calcium Phosphorus Total Bilirubin AST ALT Total Creatine Kinase CK-MB (CK-2) Troponin T Total Protein Albumin Prealbumin HDL Cholesterol Salicylates Acetaminophen Crossmatch 10/14/18 10/15/18 10/15/18 21:54 02:12 04:19 WBC RBC Hgb Hct MCV MCHC RDW Plt Count Lymph % (Auto) [place] % (Auto) [place] # Seg Neutrophils % Seg Neuts % (Manual) Lymphocytes % (Manual) Monocytes % (Manual) Seg Neutrophils # Seg Neutrophils # Man Lymphocytes # (Manual) Monocytes # (Manual) APTT Heparin Anti-Xa Level POC ABG pH 7.491 H POC ABG pCO2 45.1 H POC ABG pO2 Sodium Potassium Chloride Carbon Dioxide BUN Creatinine Glucose POC Glucose 110 H 164 H Lactic Acid Calcium Phosphorus Total Bilirubin AST ALT Total Creatine Kinase CK-MB (CK-2) Troponin T Total Protein Albumin Prealbumin HDL Cholesterol Salicylates Acetaminophen Crossmatch 10/15/18 10/15/18 10/15/18 04:55 05:43 06:20 WBC RBC Hgb 11.7 L Hct 34.7 L MCV MCHC RDW Plt Count Lymph % (Auto) [place] % (Auto) [place] # Seg Neutrophils % Seg Neuts % (Manual) Lymphocytes % (Manual) Monocytes % (Manual) Seg Neutrophils # Seg Neutrophils # Man Lymphocytes # (Manual) Monocytes # (Manual) APTT Heparin Anti-Xa Level POC ABG pH POC ABG pCO2 47.3 H POC ABG pO2 78 L Sodium Potassium Chloride Carbon Dioxide BUN Creatinine Glucose POC Glucose 250 H Lactic Acid Calcium Phosphorus Total Bilirubin AST ALT Total Creatine Kinase CK-MB (CK-2) Troponin T Total Protein Albumin Prealbumin HDL Cholesterol Salicylates Acetaminophen Crossmatch 10/15/18 10/15/18 10/15/18 12:00 12:00 12:11 WBC RBC Hgb 11.5 L Hct 34.0 L MCV MCHC RDW Plt Count Lymph % (Auto) [place] % (Auto) [place] # Seg Neutrophils % Seg Neuts % (Manual) Lymphocytes % (Manual) Monocytes % (Manual) Seg Neutrophils # Seg Neutrophils # Man Lymphocytes # (Manual) Monocytes # (Manual) APTT Heparin Anti-Xa Level POC ABG pH POC ABG pCO2 POC ABG pO2 Sodium 147 H Potassium Chloride 108.5 H Carbon Dioxide BUN Creatinine 0.7 L Glucose 209 H POC Glucose 197 H Lactic Acid Calcium 7.3 L Phosphorus Total Bilirubin AST ALT Total Creatine Kinase CK-MB (CK-2) Troponin T Total Protein Albumin Prealbumin HDL Cholesterol Salicylates Acetaminophen Crossmatch 10/15/18 10/15/18 10/15/18 15:48 18:34 21:29 WBC RBC Hgb Hct MCV MCHC RDW Plt Count Lymph % (Auto) [place] % (Auto) [place] # Seg Neutrophils % Seg Neuts % (Manual) Lymphocytes % (Manual) Monocytes % (Manual) Seg Neutrophils # Seg Neutrophils # Man Lymphocytes # (Manual) Monocytes # (Manual) APTT Heparin Anti-Xa Level POC ABG pH POC ABG pCO2 POC ABG pO2 Sodium Potassium Chloride Carbon Dioxide BUN Creatinine Glucose POC Glucose 220 H 249 H 209 H Lactic Acid Calcium Phosphorus Total Bilirubin AST ALT Total Creatine Kinase CK-MB (CK-2) Troponin T Total Protein Albumin Prealbumin HDL Cholesterol Salicylates Acetaminophen Crossmatch 10/16/18 10/16/18 10/16/18 02:16 03:50 05:57 WBC RBC Hgb Hct MCV MCHC RDW Plt Count Lymph % (Auto) [place] % (Auto) [place] # Seg Neutrophils % Seg Neuts % (Manual) Lymphocytes % (Manual) Monocytes % (Manual) Seg Neutrophils # Seg Neutrophils # Man Lymphocytes # (Manual) Monocytes # (Manual) APTT Heparin Anti-Xa Level POC ABG pH POC ABG pCO2 55.8 H POC ABG pO2 Sodium Potassium Chloride Carbon Dioxide BUN Creatinine Glucose POC Glucose 110 H 209 H Lactic Acid Calcium Phosphorus Total Bilirubin AST ALT Total Creatine Kinase CK-MB (CK-2) Troponin T Total Protein Albumin Prealbumin HDL Cholesterol Salicylates Acetaminophen Crossmatch 10/16/18 10/16/18 10/16/18 10:51 12:51 15:01 WBC RBC Hgb Hct MCV MCHC RDW Plt Count Lymph % (Auto) [place] % (Auto) [place] # Seg Neutrophils % Seg Neuts % (Manual) Lymphocytes % (Manual) Monocytes % (Manual) Seg Neutrophils # Seg Neutrophils # Man Lymphocytes # (Manual) Monocytes # (Manual) APTT Heparin Anti-Xa Level POC ABG pH POC ABG pCO2 48.9 H POC ABG pO2 Sodium Potassium Chloride Carbon Dioxide BUN Creatinine Glucose POC Glucose 198 H 196 H Lactic Acid Calcium Phosphorus Total Bilirubin AST ALT Total Creatine Kinase CK-MB (CK-2) Troponin T Total Protein Albumin Prealbumin HDL Cholesterol Salicylates Acetaminophen Crossmatch 10/16/18 10/16/18 10/17/18 17:34 21:59 02:17 WBC RBC Hgb Hct MCV MCHC RDW Plt Count Lymph % (Auto) [place] % (Auto) [place] # Seg Neutrophils % Seg Neuts % (Manual) Lymphocytes % (Manual) Monocytes % (Manual) Seg Neutrophils # Seg Neutrophils # Man Lymphocytes # (Manual) Monocytes # (Manual) APTT Heparin Anti-Xa Level POC ABG pH POC ABG pCO2 POC ABG pO2 Sodium Potassium Chloride Carbon Dioxide BUN Creatinine Glucose POC Glucose 179 H 139 H 135 H Lactic Acid Calcium Phosphorus Total Bilirubin AST ALT Total Creatine Kinase CK-MB (CK-2) Troponin T Total Protein Albumin Prealbumin HDL Cholesterol Salicylates Acetaminophen Crossmatch 10/17/18 10/17/18 10/17/18 05:40 05:47 10:18 WBC RBC Hgb 11.3 L Hct 33.2 L MCV MCHC RDW Plt Count Lymph % (Auto) [place] % (Auto) [place] # Seg Neutrophils % Seg Neuts % (Manual) Lymphocytes % (Manual) Monocytes % (Manual) Seg Neutrophils # Seg Neutrophils # Man Lymphocytes # (Manual) Monocytes # (Manual) APTT Heparin Anti-Xa Level POC ABG pH POC ABG pCO2 POC ABG pO2 Sodium Potassium Chloride Carbon Dioxide BUN Creatinine Glucose POC Glucose 125 H 139 H Lactic Acid Calcium Phosphorus Total Bilirubin AST ALT Total Creatine Kinase CK-MB (CK-2) Troponin T Total Protein Albumin Prealbumin HDL Cholesterol Salicylates Acetaminophen Crossmatch 10/17/18 10/18/18 10/18/18 23:11 08:49 11:31 WBC RBC Hgb Hct MCV MCHC RDW Plt Count Lymph % (Auto) [place] % (Auto) [place] # Seg Neutrophils % Seg Neuts % (Manual) Lymphocytes % (Manual) Monocytes % (Manual) Seg Neutrophils # Seg Neutrophils # Man Lymphocytes # (Manual) Monocytes # (Manual) APTT Heparin Anti-Xa Level POC ABG pH POC ABG pCO2 POC ABG pO2 Sodium Potassium Chloride Carbon Dioxide BUN Creatinine Glucose POC Glucose 165 H 125 H 182 H Lactic Acid Calcium Phosphorus Total Bilirubin AST ALT Total Creatine Kinase CK-MB (CK-2) Troponin T Total Protein Albumin Prealbumin HDL Cholesterol Salicylates Acetaminophen Crossmatch 10/18/18 10/18/18 10/19/18 16:12 21:02 00:28 WBC RBC Hgb 11.4 L Hct 33.6 L MCV MCHC RDW Plt Count Lymph % (Auto) [place] % (Auto) 14.0 H [place] # 1.2 H Seg Neutrophils % Seg Neuts % (Manual) Lymphocytes % (Manual) Monocytes % (Manual) Seg Neutrophils # Seg Neutrophils # Man Lymphocytes # (Manual) Monocytes # (Manual) APTT Heparin Anti-Xa Level POC ABG pH POC ABG pCO2 POC ABG pO2 Sodium Potassium Chloride Carbon Dioxide BUN Creatinine Glucose POC Glucose 168 H 324 H Lactic Acid Calcium Phosphorus Total Bilirubin AST ALT Total Creatine Kinase CK-MB (CK-2) Troponin T Total Protein Albumin Prealbumin HDL Cholesterol Salicylates Acetaminophen Crossmatch 10/19/18 10/19/18 10/19/18 04:57 04:57 07:32 WBC RBC Hgb 11.7 L Hct 34.0 L MCV MCHC RDW Plt Count Lymph % (Auto) [place] % (Auto) [place] # Seg Neutrophils % Seg Neuts % (Manual) Lymphocytes % (Manual) Monocytes % (Manual) Seg Neutrophils # Seg Neutrophils # Man Lymphocytes # (Manual) Monocytes # (Manual) APTT Heparin Anti-Xa Level POC ABG pH POC ABG pCO2 POC ABG pO2 Sodium Potassium 3.5 L Chloride 108.6 H Carbon Dioxide BUN Creatinine 0.6 L Glucose POC Glucose 159 H Lactic Acid Calcium 7.9 L Phosphorus Total Bilirubin AST ALT Total Creatine Kinase CK-MB (CK-2) Troponin T Total Protein Albumin Prealbumin HDL Cholesterol Salicylates Acetaminophen Crossmatch 10/19/18 10/19/18 10/20/18 16:25 20:59 12:04 WBC RBC Hgb Hct MCV MCHC RDW Plt Count Lymph % (Auto) [place] % (Auto) [place] # Seg Neutrophils % Seg Neuts % (Manual) Lymphocytes % (Manual) Monocytes % (Manual) Seg Neutrophils # Seg Neutrophils # Man Lymphocytes # (Manual) Monocytes # (Manual) APTT Heparin Anti-Xa Level POC ABG pH POC ABG pCO2 POC ABG pO2 Sodium Potassium Chloride Carbon Dioxide BUN Creatinine Glucose POC Glucose 134 H 110 H 338 H Lactic Acid Calcium Phosphorus Total Bilirubin AST ALT Total Creatine Kinase CK-MB (CK-2) Troponin T Total Protein Albumin Prealbumin HDL Cholesterol Salicylates Acetaminophen Crossmatch 10/20/18 10/20/18 10/21/18 17:55 22:07 04:59 WBC RBC Hgb 11.6 L Hct 33.9 L MCV MCHC RDW Plt Count Lymph % (Auto) [place] % (Auto) 9.7 H [place] # 0.9 H Seg Neutrophils % 70.7 H Seg Neuts % (Manual) Lymphocytes % (Manual) Monocytes % (Manual) Seg Neutrophils # Seg Neutrophils # Man Lymphocytes # (Manual) Monocytes # (Manual) APTT Heparin Anti-Xa Level POC ABG pH POC ABG pCO2 POC ABG pO2 Sodium Potassium Chloride Carbon Dioxide BUN Creatinine Glucose POC Glucose 146 H 164 H Lactic Acid Calcium Phosphorus Total Bilirubin AST ALT Total Creatine Kinase CK-MB (CK-2) Troponin T Total Protein Albumin Prealbumin HDL Cholesterol Salicylates Acetaminophen Crossmatch 10/21/18 10/21/18 10/21/18 04:59 07:52 11:39 WBC RBC Hgb Hct MCV MCHC RDW Plt Count Lymph % (Auto) [place] % (Auto) [place] # Seg Neutrophils % Seg Neuts % (Manual) Lymphocytes % (Manual) Monocytes % (Manual) Seg Neutrophils # Seg Neutrophils # Man Lymphocytes # (Manual) Monocytes # (Manual) APTT Heparin Anti-Xa Level POC ABG pH POC ABG pCO2 POC ABG pO2 Sodium Potassium 3.5 L Chloride 107.1 H Carbon Dioxide BUN Creatinine 0.5 L Glucose 158 H POC Glucose 142 H 194 H Lactic Acid Calcium 7.5 L Phosphorus Total Bilirubin AST ALT Total Creatine Kinase CK-MB (CK-2) Troponin T Total Protein 5.6 L Albumin 2.0 L Prealbumin HDL Cholesterol Salicylates Acetaminophen Crossmatch 10/21/18 10/21/18 10/22/18 17:05 20:37 05:38 WBC RBC 3.48 L Hgb 10.8 L Hct 31.7 L MCV MCHC RDW Plt Count 458 H Lymph % (Auto) [place] % (Auto) 10.5 H [place] # Seg Neutrophils % Seg Neuts % (Manual) Lymphocytes % (Manual) Monocytes % (Manual) Seg Neutrophils # Seg Neutrophils # Man Lymphocytes # (Manual) Monocytes # (Manual) APTT Heparin Anti-Xa Level POC ABG pH POC ABG pCO2 POC ABG pO2 Sodium Potassium Chloride Carbon Dioxide BUN Creatinine Glucose POC Glucose 167 H 182 H Lactic Acid Calcium Phosphorus Total Bilirubin AST ALT Total Creatine Kinase CK-MB (CK-2) Troponin T Total Protein Albumin Prealbumin HDL Cholesterol Salicylates Acetaminophen Crossmatch 10/22/18 10/22/18 10/22/18 05:38 07:48 12:08 WBC RBC Hgb Hct MCV MCHC RDW Plt Count Lymph % (Auto) [place] % (Auto) [place] # Seg Neutrophils % Seg Neuts % (Manual) Lymphocytes % (Manual) Monocytes % (Manual) Seg Neutrophils # Seg Neutrophils # Man Lymphocytes # (Manual) Monocytes # (Manual) APTT Heparin Anti-Xa Level POC ABG pH POC ABG pCO2 POC ABG pO2 Sodium Potassium Chloride Carbon Dioxide BUN Creatinine 0.5 L Glucose 146 H POC Glucose 130 H 167 H Lactic Acid Calcium 7.8 L Phosphorus Total Bilirubin AST 41 H ALT Total Creatine Kinase CK-MB (CK-2) Troponin T Total Protein 5.5 L Albumin 2.1 L Prealbumin HDL Cholesterol Salicylates Acetaminophen Crossmatch 10/22/18 10/22/18 10/23/18 16:45 21:42 04:38 WBC RBC Hgb 11.7 L Hct 34.7 L MCV MCHC RDW Plt Count 523 H Lymph % (Auto) [place] % (Auto) 8.7 H [place] # Seg Neutrophils % 71.6 H Seg Neuts % (Manual) Lymphocytes % (Manual) Monocytes % (Manual) Seg Neutrophils # Seg Neutrophils # Man Lymphocytes # (Manual) Monocytes # (Manual) APTT Heparin Anti-Xa Level POC ABG pH POC ABG pCO2 POC ABG pO2 Sodium Potassium Chloride Carbon Dioxide BUN Creatinine Glucose POC Glucose 113 H 134 H Lactic Acid Calcium Phosphorus Total Bilirubin AST ALT Total Creatine Kinase CK-MB (CK-2) Troponin T Total Protein Albumin Prealbumin HDL Cholesterol Salicylates Acetaminophen Crossmatch 10/23/18 10/23/18 10/23/18 04:38 07:56 11:15 WBC RBC Hgb Hct MCV MCHC RDW Plt Count Lymph % (Auto) [place] % (Auto) [place] # Seg Neutrophils % Seg Neuts % (Manual) Lymphocytes % (Manual) Monocytes % (Manual) Seg Neutrophils # Seg Neutrophils # Man Lymphocytes # (Manual) Monocytes # (Manual) APTT Heparin Anti-Xa Level POC ABG pH POC ABG pCO2 POC ABG pO2 Sodium Potassium Chloride Carbon Dioxide BUN 7 L Creatinine 0.5 L Glucose 150 H POC Glucose 123 H 212 H Lactic Acid Calcium 8.0 L Phosphorus Total Bilirubin AST 55 H ALT Total Creatine Kinase CK-MB (CK-2) Troponin T Total Protein 6.2 L Albumin 2.3 L Prealbumin HDL Cholesterol Salicylates Acetaminophen Crossmatch 10/23/18 10/23/18 10/24/18 16:06 22:01 05:56 WBC 11.8 H RBC 3.64 L Hgb 11.2 L Hct 33.4 L MCV MCHC RDW Plt Count 564 H Lymph % (Auto) 11.3 L [place] % (Auto) [place] # Seg Neutrophils % 80.2 H Seg Neuts % (Manual) Lymphocytes % (Manual) Monocytes % (Manual) Seg Neutrophils # 9.4 H Seg Neutrophils # Man Lymphocytes # (Manual) Monocytes # (Manual) APTT Heparin Anti-Xa Level POC ABG pH POC ABG pCO2 POC ABG pO2 Sodium Potassium Chloride Carbon Dioxide BUN Creatinine Glucose POC Glucose 152 H 235 H Lactic Acid Calcium Phosphorus Total Bilirubin AST ALT Total Creatine Kinase CK-MB (CK-2) Troponin T Total Protein Albumin Prealbumin HDL Cholesterol Salicylates Acetaminophen Crossmatch 10/24/18 10/24/18 10/24/18 05:56 07:52 11:58 WBC RBC Hgb Hct MCV MCHC RDW Plt Count Lymph % (Auto) [place] % (Auto) [place] # Seg Neutrophils % Seg Neuts % (Manual) Lymphocytes % (Manual) Monocytes % (Manual) Seg Neutrophils # Seg Neutrophils # Man Lymphocytes # (Manual) Monocytes # (Manual) APTT Heparin Anti-Xa Level POC ABG pH POC ABG pCO2 POC ABG pO2 Sodium Potassium Chloride Carbon Dioxide BUN Creatinine 0.5 L Glucose 175 H POC Glucose 156 H 238 H Lactic Acid Calcium 8.0 L Phosphorus Total Bilirubin AST 44 H ALT Total Creatine Kinase CK-MB (CK-2) Troponin T Total Protein 6.2 L Albumin 2.4 L Prealbumin HDL Cholesterol Salicylates Acetaminophen Crossmatch 10/24/18 10/24/18 10/25/18 16:20 22:13 07:53 WBC RBC Hgb Hct MCV MCHC RDW Plt Count Lymph % (Auto) [place] % (Auto) [place] # Seg Neutrophils % Seg Neuts % (Manual) Lymphocytes % (Manual) Monocytes % (Manual) Seg Neutrophils # Seg Neutrophils # Man Lymphocytes # (Manual) Monocytes # (Manual) APTT Heparin Anti-Xa Level POC ABG pH POC ABG pCO2 POC ABG pO2 Sodium Potassium Chloride Carbon Dioxide BUN Creatinine Glucose POC Glucose 60 L 261 H 211 H Lactic Acid Calcium Phosphorus Total Bilirubin AST ALT Total Creatine Kinase CK-MB (CK-2) Troponin T Total Protein Albumin Prealbumin HDL Cholesterol Salicylates Acetaminophen Crossmatch 10/25/18 10/25/18 10/25/18 11:03 16:02 22:45 WBC RBC Hgb Hct MCV MCHC RDW Plt Count Lymph % (Auto) [place] % (Auto) [place] # Seg Neutrophils % Seg Neuts % (Manual) Lymphocytes % (Manual) Monocytes % (Manual) Seg Neutrophils # Seg Neutrophils # Man Lymphocytes # (Manual) Monocytes # (Manual) APTT Heparin Anti-Xa Level POC ABG pH POC ABG pCO2 POC ABG pO2 Sodium Potassium Chloride Carbon Dioxide BUN Creatinine Glucose POC Glucose 137 H 186 H 140 H Lactic Acid Calcium Phosphorus Total Bilirubin AST ALT Total Creatine Kinase CK-MB (CK-2) Troponin T Total Protein Albumin Prealbumin HDL Cholesterol Salicylates Acetaminophen Crossmatch 10/26/18 10/26/18 10/26/18 08:13 10:08 11:28 WBC RBC Hgb Hct MCV MCHC RDW Plt Count Lymph % (Auto) [place] % (Auto) [place] # Seg Neutrophils % Seg Neuts % (Manual) Lymphocytes % (Manual) Monocytes % (Manual) Seg Neutrophils # Seg Neutrophils # Man Lymphocytes # (Manual) Monocytes # (Manual) APTT Heparin Anti-Xa Level POC ABG pH POC ABG pCO2 POC ABG pO2 Sodium Potassium Chloride Carbon Dioxide BUN Creatinine Glucose POC Glucose 144 H 110 H 201 H Lactic Acid Calcium Phosphorus Total Bilirubin AST ALT Total Creatine Kinase CK-MB (CK-2) Troponin T Total Protein Albumin Prealbumin HDL Cholesterol Salicylates Acetaminophen Crossmatch 10/26/18 10/26/18 10/27/18 16:36 22:29 07:34 WBC RBC Hgb Hct MCV MCHC RDW Plt Count Lymph % (Auto) [place] % (Auto) [place] # Seg Neutrophils % Seg Neuts % (Manual) Lymphocytes % (Manual) Monocytes % (Manual) Seg Neutrophils # Seg Neutrophils # Man Lymphocytes # (Manual) Monocytes # (Manual) APTT Heparin Anti-Xa Level POC ABG pH POC ABG pCO2 POC ABG pO2 Sodium Potassium Chloride Carbon Dioxide BUN Creatinine Glucose POC Glucose 147 H 302 H 182 H Lactic Acid Calcium Phosphorus Total Bilirubin AST ALT Total Creatine Kinase CK-MB (CK-2) Troponin T Total Protein Albumin Prealbumin HDL Cholesterol Salicylates Acetaminophen Crossmatch 10/27/18 10/27/18 10/27/18 11:57 13:33 14:55 WBC RBC Hgb Hct MCV MCHC RDW Plt Count 550 H Lymph % (Auto) [place] % (Auto) [place] # Seg Neutrophils % Seg Neuts % (Manual) Lymphocytes % (Manual) Monocytes % (Manual) Seg Neutrophils # Seg Neutrophils # Man Lymphocytes # (Manual) Monocytes # (Manual) APTT Heparin Anti-Xa Level POC ABG pH POC ABG pCO2 POC ABG pO2 Sodium Potassium Chloride Carbon Dioxide BUN Creatinine Glucose POC Glucose 209 H Lactic Acid Calcium Phosphorus Total Bilirubin AST ALT Total Creatine Kinase CK-MB (CK-2) Troponin T Total Protein Albumin Prealbumin HDL Cholesterol Salicylates Acetaminophen Crossmatch See Detail 10/27/18 10/27/18 10/28/18 17:09 21:45 07:45 WBC RBC Hgb Hct MCV MCHC RDW Plt Count Lymph % (Auto) [place] % (Auto) [place] # Seg Neutrophils % Seg Neuts % (Manual) Lymphocytes % (Manual) Monocytes % (Manual) Seg Neutrophils # Seg Neutrophils # Man Lymphocytes # (Manual) Monocytes # (Manual) APTT Heparin Anti-Xa Level POC ABG pH POC ABG pCO2 POC ABG pO2 Sodium Potassium Chloride Carbon Dioxide BUN Creatinine Glucose POC Glucose 233 H 136 H 201 H Lactic Acid Calcium Phosphorus Total Bilirubin AST ALT Total Creatine Kinase CK-MB (CK-2) Troponin T Total Protein Albumin Prealbumin HDL Cholesterol Salicylates Acetaminophen Crossmatch 10/28/18 10/28/18 10/28/18 11:17 16:34 19:51 WBC RBC Hgb Hct MCV MCHC RDW Plt Count Lymph % (Auto) [place] % (Auto) [place] # Seg Neutrophils % Seg Neuts % (Manual) Lymphocytes % (Manual) Monocytes % (Manual) Seg Neutrophils # Seg Neutrophils # Man Lymphocytes # (Manual) Monocytes # (Manual) APTT Heparin Anti-Xa Level < 0.10 L POC ABG pH POC ABG pCO2 POC ABG pO2 Sodium Potassium Chloride Carbon Dioxide BUN Creatinine Glucose POC Glucose 116 H 168 H Lactic Acid Calcium Phosphorus Total Bilirubin AST ALT Total Creatine Kinase CK-MB (CK-2) Troponin T Total Protein Albumin Prealbumin HDL Cholesterol Salicylates Acetaminophen Crossmatch 10/28/18 10/29/18 10/29/18 21:52 07:11 07:11 WBC RBC Hgb Hct MCV MCHC RDW Plt Count 470 H Lymph % (Auto) [place] % (Auto) [place] # Seg Neutrophils % Seg Neuts % (Manual) Lymphocytes % (Manual) Monocytes % (Manual) Seg Neutrophils # Seg Neutrophils # Man Lymphocytes # (Manual) Monocytes # (Manual) APTT Heparin Anti-Xa Level 0.13 L POC ABG pH POC ABG pCO2 POC ABG pO2 Sodium Potassium Chloride Carbon Dioxide BUN Creatinine Glucose POC Glucose 159 H Lactic Acid Calcium Phosphorus Total Bilirubin AST ALT Total Creatine Kinase CK-MB (CK-2) Troponin T Total Protein Albumin Prealbumin HDL Cholesterol Salicylates Acetaminophen Crossmatch 10/29/18 10/29/18 10/29/18 07:11 07:43 11:29 WBC RBC Hgb Hct MCV MCHC RDW Plt Count Lymph % (Auto) [place] % (Auto) [place] # Seg Neutrophils % Seg Neuts % (Manual) Lymphocytes % (Manual) Monocytes % (Manual) Seg Neutrophils # Seg Neutrophils # Man Lymphocytes # (Manual) Monocytes # (Manual) APTT Heparin Anti-Xa Level POC ABG pH POC ABG pCO2 POC ABG pO2 Sodium Potassium Chloride Carbon Dioxide BUN 7 L Creatinine 0.5 L Glucose 122 H POC Glucose 147 H 165 H Lactic Acid Calcium 8.2 L Phosphorus Total Bilirubin AST ALT Total Creatine Kinase CK-MB (CK-2) Troponin T Total Protein Albumin Prealbumin HDL Cholesterol Salicylates Acetaminophen Crossmatch 10/29/18 10/29/1810/30/19 19:50 22:11 00:11 WBC RBC Hgb Hct MCV MCHC RDW Plt Count Lymph % (Auto) [place] % (Auto) [place] # Seg Neutrophils % Seg Neuts % (Manual) Lymphocytes % (Manual) Monocytes % (Manual) Seg Neutrophils # Seg Neutrophils # Man Lymphocytes # (Manual) Monocytes # (Manual) APTT Heparin Anti-Xa Level 0.25 L POC ABG pH POC ABG pCO2 POC ABG pO2 Sodium Potassium Chloride Carbon Dioxide BUN Creatinine Glucose POC Glucose 166 H 173 H Lactic Acid Calcium Phosphorus Total Bilirubin AST ALT Total Creatine Kinase CK-MB (CK-2) Troponin T Total Protein Albumin Prealbumin HDL Cholesterol Salicylates Acetaminophen Crossmatch 10/30/18 10/30/18 10/30/18 04:22 04:22 07:47 WBC 27.0 H RBC 3.16 L Hgb 10.0 L Hct 28.8 L D MCV MCHC 35 H RDW Plt Count Lymph % (Auto) [place] % (Auto) [place] # Seg Neutrophils % Seg Neuts % (Manual) Lymphocytes % (Manual) 1.5 L Monocytes % (Manual) Seg Neutrophils # Seg Neutrophils # Man 18.6 H Lymphocytes # (Manual) 0.4 L Monocytes # (Manual) APTT Heparin Anti-Xa Level POC ABG pH POC ABG pCO2 POC ABG pO2 Sodium Potassium Chloride Carbon Dioxide BUN Creatinine Glucose 224 H POC Glucose 168 H Lactic Acid Calcium 7.5 L Phosphorus Total Bilirubin AST ALT Total Creatine Kinase CK-MB (CK-2) Troponin T Total Protein Albumin Prealbumin HDL Cholesterol Salicylates Acetaminophen Crossmatch 10/30/18 10/30/18 10/30/18 07:55 11:20 16:41 WBC RBC Hgb Hct MCV MCHC RDW Plt Count Lymph % (Auto) [place] % (Auto) [place] # Seg Neutrophils % Seg Neuts % (Manual) Lymphocytes % (Manual) Monocytes % (Manual) Seg Neutrophils # Seg Neutrophils # Man Lymphocytes # (Manual) Monocytes # (Manual) APTT Heparin Anti-Xa Level < 0.10 L POC ABG pH POC ABG pCO2 POC ABG pO2 Sodium Potassium Chloride Carbon Dioxide BUN Creatinine Glucose POC Glucose 165 H 142 H Lactic Acid Calcium Phosphorus Total Bilirubin AST ALT Total Creatine Kinase CK-MB (CK-2) Troponin T Total Protein Albumin Prealbumin HDL Cholesterol Salicylates Acetaminophen Crossmatch 10/30/18 10/30/18 10/31/18 20:51 21:20 05:21 WBC RBC Hgb 9.0 L Hct 26.6 L MCV MCHC RDW Plt Count Lymph % (Auto) [place] % (Auto) [place] # Seg Neutrophils % Seg Neuts % (Manual) Lymphocytes % (Manual) Monocytes % (Manual) Seg Neutrophils # Seg Neutrophils # Man Lymphocytes # (Manual) Monocytes # (Manual) APTT Heparin Anti-Xa Level < 0.10 L POC ABG pH POC ABG pCO2 POC ABG pO2 Sodium Potassium Chloride Carbon Dioxide BUN Creatinine Glucose POC Glucose 136 H Lactic Acid Calcium Phosphorus Total Bilirubin AST ALT Total Creatine Kinase CK-MB (CK-2) Troponin T Total Protein Albumin Prealbumin HDL Cholesterol Salicylates Acetaminophen Crossmatch 10/31/18 10/31/18 10/31/18 08:07 10:19 12:12 WBC RBC Hgb Hct MCV MCHC RDW Plt Count Lymph % (Auto) [place] % (Auto) [place] # Seg Neutrophils % Seg Neuts % (Manual) Lymphocytes % (Manual) Monocytes % (Manual) Seg Neutrophils # Seg Neutrophils # Man Lymphocytes # (Manual) Monocytes # (Manual) APTT Heparin Anti-Xa Level POC ABG pH POC ABG pCO2 POC ABG pO2 Sodium Potassium Chloride Carbon Dioxide BUN Creatinine Glucose POC Glucose 155 H 194 H Lactic Acid Calcium Phosphorus Total Bilirubin AST ALT Total Creatine Kinase CK-MB (CK-2) Troponin T Total Protein Albumin Prealbumin HDL Cholesterol Salicylates Acetaminophen Crossmatch See Detail 10/31/18 10/31/18 10/31/18 16:07 16:56 21:14 WBC RBC Hgb Hct MCV MCHC RDW Plt Count Lymph % (Auto) [place] % (Auto) [place] # Seg Neutrophils % Seg Neuts % (Manual) Lymphocytes % (Manual) Monocytes % (Manual) Seg Neutrophils # Seg Neutrophils # Man Lymphocytes # (Manual) Monocytes # (Manual) APTT Heparin Anti-Xa Level 1.20 H POC ABG pH POC ABG pCO2 POC ABG pO2 Sodium Potassium Chloride Carbon Dioxide BUN Creatinine Glucose POC Glucose 354 H 234 H Lactic Acid Calcium Phosphorus Total Bilirubin AST ALT Total Creatine Kinase CK-MB (CK-2) Troponin T Total Protein Albumin Prealbumin HDL Cholesterol Salicylates Acetaminophen Crossmatch 11/01/18 11/01/18 11/01/18 00:52 05:52 05:52 WBC 12.5 H RBC 2.95 L Hgb 9.1 L Hct 27.4 L MCV MCHC RDW 15.3 H Plt Count Lymph % (Auto) [place] % (Auto) [place] # Seg Neutrophils % Seg Neuts % (Manual) Lymphocytes % (Manual) Monocytes % (Manual) Seg Neutrophils # Seg Neutrophils # Man Lymphocytes # (Manual) Monocytes # (Manual) APTT Heparin Anti-Xa Level 1.53 H POC ABG pH POC ABG pCO2 POC ABG pO2 Sodium Potassium Chloride Carbon Dioxide BUN Creatinine 0.5 L Glucose 169 H POC Glucose Lactic Acid Calcium 8.3 L Phosphorus Total Bilirubin AST ALT Total Creatine Kinase CK-MB (CK-2) Troponin T Total Protein 6.2 L Albumin 2.3 L Prealbumin HDL Cholesterol Salicylates Acetaminophen Crossmatch 11/01/18 11/01/18 11/01/18 08:17 10:57 11:38 WBC RBC Hgb Hct MCV MCHC RDW Plt Count Lymph % (Auto) [place] % (Auto) [place] # Seg Neutrophils % Seg Neuts % (Manual) Lymphocytes % (Manual) Monocytes % (Manual) Seg Neutrophils # Seg Neutrophils # Man Lymphocytes # (Manual) Monocytes # (Manual) APTT Heparin Anti-Xa Level 1.05 H POC ABG pH POC ABG pCO2 POC ABG pO2 Sodium Potassium Chloride Carbon Dioxide BUN Creatinine Glucose POC Glucose 158 H 133 H Lactic Acid Calcium Phosphorus Total Bilirubin AST ALT Total Creatine Kinase CK-MB (CK-2) Troponin T Total Protein Albumin Prealbumin HDL Cholesterol Salicylates Acetaminophen Crossmatch 11/01/18 11/01/18 11/02/18 17:08 21:23 04:56 WBC RBC 3.02 L Hgb 9.5 L Hct 28.0 L MCV MCHC RDW Plt Count Lymph % (Auto) [place] % (Auto) [place] # Seg Neutrophils % Seg Neuts % (Manual) Lymphocytes % (Manual) Monocytes % (Manual) Seg Neutrophils # Seg Neutrophils # Man Lymphocytes # (Manual) Monocytes # (Manual) APTT Heparin Anti-Xa Level POC ABG pH POC ABG pCO2 POC ABG pO2 Sodium Potassium Chloride Carbon Dioxide BUN Creatinine Glucose POC Glucose 156 H 213 H Lactic Acid Calcium Phosphorus Total Bilirubin AST ALT Total Creatine Kinase CK-MB (CK-2) Troponin T Total Protein Albumin Prealbumin HDL Cholesterol Salicylates Acetaminophen Crossmatch 11/02/18 11/02/18 11/02/18 04:56 08:38 11:23 WBC RBC Hgb Hct MCV MCHC RDW Plt Count Lymph % (Auto) [place] % (Auto) [place] # Seg Neutrophils % Seg Neuts % (Manual) Lymphocytes % (Manual) Monocytes % (Manual) Seg Neutrophils # Seg Neutrophils # Man Lymphocytes # (Manual) Monocytes # (Manual) APTT Heparin Anti-Xa Level POC ABG pH POC ABG pCO2 POC ABG pO2 Sodium Potassium Chloride Carbon Dioxide BUN Creatinine 0.5 L Glucose 141 H POC Glucose 173 H 272 H Lactic Acid Calcium 8.2 L Phosphorus Total Bilirubin AST 43 H ALT Total Creatine Kinase CK-MB (CK-2) Troponin T Total Protein 6.1 L Albumin 2.2 L Prealbumin HDL Cholesterol Salicylates Acetaminophen Crossmatch 11/02/18 11/03/18 11/03/18 22:16 04:38 04:38 WBC 11.6 H RBC 3.20 L Hgb 9.8 L Hct 29.2 L MCV MCHC RDW Plt Count Lymph % (Auto) [place] % (Auto) [place] # Seg Neutrophils % Seg Neuts % (Manual) Lymphocytes % (Manual) Monocytes % (Manual) Seg Neutrophils # Seg Neutrophils # Man Lymphocytes # (Manual) Monocytes # (Manual) APTT Heparin Anti-Xa Level POC ABG pH POC ABG pCO2 POC ABG pO2 Sodium 135 L Potassium Chloride Carbon Dioxide BUN Creatinine 0.5 L Glucose 160 H POC Glucose 182 H Lactic Acid Calcium Phosphorus Total Bilirubin AST 46 H ALT Total Creatine Kinase CK-MB (CK-2) Troponin T Total Protein Albumin 2.3 L Prealbumin HDL Cholesterol Salicylates Acetaminophen Crossmatch 11/03/18 11/03/18 11/03/18 07:52 10:59 18:10 WBC RBC Hgb Hct MCV MCHC RDW Plt Count Lymph % (Auto) [place] % (Auto) [place] # Seg Neutrophils % Seg Neuts % (Manual) Lymphocytes % (Manual) Monocytes % (Manual) Seg Neutrophils # Seg Neutrophils # Man Lymphocytes # (Manual) Monocytes # (Manual) APTT Heparin Anti-Xa Level POC ABG pH POC ABG pCO2 POC ABG pO2 Sodium Potassium Chloride Carbon Dioxide BUN Creatinine Glucose POC Glucose 180 H 159 H 169 H Lactic Acid Calcium Phosphorus Total Bilirubin AST ALT Total Creatine Kinase CK-MB (CK-2) Troponin T Total Protein Albumin Prealbumin HDL Cholesterol Salicylates Acetaminophen Crossmatch 05/11/04/18 11/04/18 07:46 11:42 15:45 WBC 11.5 H RBC 3.41 L Hgb 10.4 L Hct 30.8 L MCV MCHC RDW Plt Count Lymph % (Auto) [place] % (Auto) [place] # Seg Neutrophils % Seg Neuts % (Manual) Lymphocytes % (Manual) Monocytes % (Manual) Seg Neutrophils # Seg Neutrophils # Man Lymphocytes # (Manual) Monocytes # (Manual) APTT Heparin Anti-Xa Level POC ABG pH POC ABG pCO2 POC ABG pO2 Sodium Potassium Chloride Carbon Dioxide BUN Creatinine Glucose POC Glucose 160 H 149 H Lactic Acid Calcium Phosphorus Total Bilirubin AST ALT Total Creatine Kinase CK-MB (CK-2) Troponin T Total Protein Albumin Prealbumin HDL Cholesterol Salicylates Acetaminophen Crossmatch 11/04/18 11/04/18 11/04/18 15:45 15:45 16:41 WBC RBC Hgb Hct MCV MCHC RDW Plt Count Lymph % (Auto) [place] % (Auto) [place] # Seg Neutrophils % Seg Neuts % (Manual) Lymphocytes % (Manual) Monocytes % (Manual) Seg Neutrophils # Seg Neutrophils # Man Lymphocytes # (Manual) Monocytes # (Manual) APTT Heparin Anti-Xa Level POC ABG pH POC ABG pCO2 POC ABG pO2 Sodium 133 L Potassium Chloride 95.6 L Carbon Dioxide BUN Creatinine 0.5 L Glucose 163 H POC Glucose 157 H Lactic Acid Calcium Phosphorus Total Bilirubin AST ALT Total Creatine Kinase CK-MB (CK-2) Troponin T Total Protein Albumin 2.6 L Prealbumin 0.073 L HDL Cholesterol Salicylates Acetaminophen Crossmatch 11/04/18 11/05/18 11/05/18 21:59 08:51 12:13 WBC RBC Hgb Hct MCV MCHC RDW Plt Count Lymph % (Auto) [place] % (Auto) [place] # Seg Neutrophils % Seg Neuts % (Manual) Lymphocytes % (Manual) Monocytes % (Manual) Seg Neutrophils # Seg Neutrophils # Man Lymphocytes # (Manual) Monocytes # (Manual) APTT Heparin Anti-Xa Level POC ABG pH POC ABG pCO2 POC ABG pO2 Sodium Potassium Chloride Carbon Dioxide BUN Creatinine Glucose POC Glucose 195 H 187 H 149 H Lactic Acid Calcium Phosphorus Total Bilirubin AST ALT Total Creatine Kinase CK-MB (CK-2) Troponin T Total Protein Albumin Prealbumin HDL Cholesterol Salicylates Acetaminophen Crossmatch 11/05/18 11/05/18 11/06/18 17:15 20:37 07:00 WBC RBC 3.48 L Hgb 11.2 L Hct 31.8 L MCV MCHC 35 H RDW Plt Count Lymph % (Auto) [place] % (Auto) [place] # Seg Neutrophils % Seg Neuts % (Manual) Lymphocytes % (Manual) Monocytes % (Manual) Seg Neutrophils # Seg Neutrophils # Man Lymphocytes # (Manual) Monocytes # (Manual) APTT Heparin Anti-Xa Level POC ABG pH POC ABG pCO2 POC ABG pO2 Sodium Potassium Chloride Carbon Dioxide BUN Creatinine Glucose POC Glucose 281 H 203 H Lactic Acid Calcium Phosphorus Total Bilirubin AST ALT Total Creatine Kinase CK-MB (CK-2) Troponin T Total Protein Albumin Prealbumin HDL Cholesterol Salicylates Acetaminophen Crossmatch 11/06/18 11/06/18 11/06/18 07:00 07:31 12:45 WBC RBC Hgb Hct MCV MCHC RDW Plt Count Lymph % (Auto) [place] % (Auto) [place] # Seg Neutrophils % Seg Neuts % (Manual) Lymphocytes % (Manual) Monocytes % (Manual) Seg Neutrophils # Seg Neutrophils # Man Lymphocytes # (Manual) Monocytes # (Manual) APTT Heparin Anti-Xa Level POC ABG pH POC ABG pCO2 POC ABG pO2 Sodium 135 L Potassium Chloride 97.3 L Carbon Dioxide BUN Creatinine 0.5 L Glucose 163 H POC Glucose 215 H 183 H Lactic Acid Calcium Phosphorus Total Bilirubin AST ALT Total Creatine Kinase CK-MB (CK-2) Troponin T Total Protein Albumin Prealbumin HDL Cholesterol Salicylates Acetaminophen Crossmatch 11/06/18 11/06/18 11/07/18 17:47 21:05 07:42 WBC RBC Hgb Hct MCV MCHC RDW Plt Count Lymph % (Auto) [place] % (Auto) [place] # Seg Neutrophils % Seg Neuts % (Manual) Lymphocytes % (Manual) Monocytes % (Manual) Seg Neutrophils # Seg Neutrophils # Man Lymphocytes # (Manual) Monocytes # (Manual) APTT Heparin Anti-Xa Level POC ABG pH POC ABG pCO2 POC ABG pO2 Sodium Potassium Chloride Carbon Dioxide BUN Creatinine Glucose POC Glucose 141 H 223 H 168 H Lactic Acid Calcium Phosphorus Total Bilirubin AST ALT Total Creatine Kinase CK-MB (CK-2) Troponin T Total Protein Albumin Prealbumin HDL Cholesterol Salicylates Acetaminophen Crossmatch 11/07/18 11/07/18 11/07/18 11:37 16:21 21:39 WBC RBC Hgb Hct MCV MCHC RDW Plt Count Lymph % (Auto) [place] % (Auto) [place] # Seg Neutrophils % Seg Neuts % (Manual) Lymphocytes % (Manual) Monocytes % (Manual) Seg Neutrophils # Seg Neutrophils # Man Lymphocytes # (Manual) Monocytes # (Manual) APTT Heparin Anti-Xa Level POC ABG pH POC ABG pCO2 POC ABG pO2 Sodium Potassium Chloride Carbon Dioxide BUN Creatinine Glucose POC Glucose 120 H 169 H 127 H Lactic Acid Calcium Phosphorus Total Bilirubin AST ALT Total Creatine Kinase CK-MB (CK-2) Troponin T Total Protein Albumin Prealbumin HDL Cholesterol Salicylates Acetaminophen Crossmatch 11/08/18 11:48 WBC RBC Hgb Hct MCV MCHC RDW Plt Count Lymph % (Auto) [place] % (Auto) [place] # Seg Neutrophils % Seg Neuts % (Manual) Lymphocytes % (Manual) Monocytes % (Manual) Seg Neutrophils # Seg Neutrophils # Man Lymphocytes # (Manual) Monocytes # (Manual) APTT Heparin Anti-Xa Level POC ABG pH POC ABG pCO2 POC ABG pO2 Sodium Potassium Chloride Carbon Dioxide BUN Creatinine Glucose POC Glucose 144 H Lactic Acid Calcium Phosphorus Total Bilirubin AST ALT Total Creatine Kinase CK-MB (CK-2) Troponin T Total Protein Albumin Prealbumin HDL Cholesterol Salicylates Acetaminophen Crossmatch Allied health notes reviewed: nursing
[2018-11-08] MEDS: SUBOXONE 2 MG-0.5 MG SL SCH (13:29)
[2018-11-08] MEDS: ELIQUIS PO SCH ×2 (14:55→22:19)
[2018-11-08 17:03] LABS: Basophils # (Auto) 0.1 K/mm3 (0.0-0.1); Basophils % (Auto) 0.5 % (0.0-1.8); Eosinophils # (Auto) 0.2 K/mm3 (0.0-0.4); Eosinophils % (Auto) 1.8 % (0.0-4.3); Hematocrit 30.5 % (35.5-45.6); Hemoglobin 10.3 gm/dl (11.8-15.2); Lymphocytes # (Auto) 1.7 K/mm3 (1.2-5.4); Lymphocytes % (Auto) 15.3 % (13.4-35.0); Mean Corpuscular HGB Conc 34 % (32-34); Mean Corpuscular Volume 90 fl (84-94); Monocytes % (Auto) 9.3 % (0.0-7.3); Platelet Count 465 K/mm3 (140-440); Red Cell Distribution Width 14.4 % (13.2-15.2)
[2018-11-08 17:17] LABS: BUN/Creatinine Ratio 33; Blood Urea Nitrogen 13 mg/dL (9-20); Calcium 8.6 mg/dL (8.4-10.2); Hemolysis Index 13
[2018-11-09] MEDS: HumuLIN R SUB-Q SCH ×5 (02:47→22:53)
[2018-11-09] MEDS: PERCOCET 5/325 PO PRN (03:00)
[2018-11-09 07:11] LABS: Basophils # (Auto) 0.1 K/mm3 (0.0-0.1); Basophils % (Auto) 0.5 % (0.0-1.8); Eosinophils # (Auto) 0.2 K/mm3 (0.0-0.4); Eosinophils % (Auto) 1.7 % (0.0-4.3); Hematocrit 31.5 % (35.5-45.6); Hemoglobin 10.5 gm/dl (11.8-15.2); Lymphocytes # (Auto) 2.1 K/mm3 (1.2-5.4); Lymphocytes % (Auto) 16.9 % (13.4-35.0); Mean Corpuscular HGB Conc 33 % (32-34); Mean Corpuscular Volume 91 fl (84-94); Monocytes # (Auto) 1.4 K/mm3 (0.0-0.8); Monocytes % (Auto) 10.9 % (0.0-7.3); Platelet Count 452 K/mm3 (140-440); Red Blood Count 3.47 M/mm3 (3.65-5.03); Red Cell Distribution Width 14.6 % (13.2-15.2)
[2018-11-09 07:13] LABS: BUN/Creatinine Ratio 35; Blood Urea Nitrogen 14 mg/dL (9-20); Calcium 8.4 mg/dL (8.4-10.2); Hemolysis Index 84
[2018-11-09] MEDS: DUONEB *Not for PRN Use IH SCH ×3 (08:32→21:02)
--- NOTE | 2018-11-09 09:27 | Progress Note ---
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 followed by revascularization right leg on 10/31/18. Vascular surgery feels the patient will need evaluation of his devascularized skin along the lateral aspect of his left stump. Left below-knee amputation stump site is looking marginal. It may not be salvageable and require above-knee amputation conversion. -Acute/subacute right CVA, Initial CT head, no acute finding, 10/13/18 found to have left-sided weakness, MRI brain showed numerous acute/subacute multilobar infarcts involving the cerebrum and cerebellum including Hemorrhagic transformation of the right frontal and biparietal lobes, was Not a candidate for tPA, monitor off aspirin per teleneurology, QUIQUE ; no thrombus or shunt, -Severe sepsis with shock; resolved. Probably due to LLL aspiration pneumonia, completed total 7 days of antibiotics, off vasopressors -Paroxysmal atrial fibrillation. on Eliquis Cardiology is following -LLL pneumonia: completed treatment -Acute respiratory failure with hypoxia and hypercapnia: Requiring intubation, s/p extubation, treat with nebs and supplemental O2 as needed -DKA, resolved: cont SSI for now, diabetic diet -Acute toxic/metabolic encephalopathy, improved -Seizure disorder; seizure precautions, no new episodes of seizure, Ativan when necessary, neurology did not recommend antiepileptic medications -Elevated troponin/NSTEMI type 2, Echocardiogram for further evaluation - Ef 25- 30%, Cardiology consulted, medical Mx for now, -Acute systolic CHF, Ef 25-30%, anti-failure medications, Cardiology is following -Chronic hypotension. Consider Midodrine. -ARF. Etiology secondary to ATN and vasomotor nephropathy, poa, resolved -Hyperkalemia, resolved -Abnormal LFT, Probably due to sepsis, resolving and chronic hepatitis C virus infection, Abdominal US showed no sign of cirrhosis: monitor cmp -Anemia, appears acute on chronic AOCD: monitor closely on iv heparin drip -Severe protein calorie malnutrition, bmi 14.8; nutrition supplements, Dietitian consulted -DVT prophylaxis with Eliquis -GI prophylaxis with famotidine -Tobacco abuse. Patient with a long smoking history of one pack per day or more since age 9. Patient was counseled on smoking cessation. -Disposition: continue inpatient care. Possible rehab vs Subacute rehab placement==>Physical therapy recommended Subacute Rehab but re-evaluation pending. History Interval history: Patient is a 58 yo man with a history of COPD, DM, hypertension, asthma, peripheral neuropathy, chronic hepatitis C virus, panic attack. anxiety disorder, polysubstance abuse including alcohol, cocaine and heroin who presented to [facility] ED on 10/11/18 with AMS. He was diagnosis with septic shock due to pneumonia, placed on abx and vasopressors. He was also diagnosis with DKA/respiratory failure/Status epilepticus/ARF. Patient s/p left BKA, right open thrombectomy and aortic stenting and bilateral common iliac artery stenting but right EIA occluded requiring another open thrombectomy and stenting of the right iliac system. Vascular surgery felt patient will need evaluation of his devascularized skin along the lateral aspect of his left stump. Left below-knee amputation stump site is looking marginal. It may not be salvageable and require above-knee amputation conversion. No new issues overnight. Hospitalist Physical - Constitutional Vitals: Temp Pulse Resp BP Pulse Ox 98.0 F 73 16 95/56 93 11/09/18 00:17 11/09/18 00:17 11/09/18 00:17 11/09/18 00:17 11/09/18 00:17 General appearance: Present: no acute distress - EENT Eyes: Present: PERRL, EOM intact ENT: hearing intact, clear oral mucosa, dentition normal - Neck Neck: Present: supple, normal ROM - Respiratory Respiratory effort: normal Respiratory: bilateral: CTA - Cardiovascular Rhythm: regular Heart Sounds: Present: S1 & S2. Absent: gallop, rub - Extremities Extremities: no ischemia, No edema, Full ROM - Abdominal General gastrointestinal: soft, non-tender, non-distended, normal bowel sounds - Integumentary Integumentary: Present: clear, warm, dry - Neurologic Neurologic: CNII-XII intact, moves all extremities Results - Labs CBC & Chem 7: 11/09/18 06:06 11/09/18 06:06 Labs: Laboratory Last Values WBC 12.7 K/mm3 (4.5-11.0) H 11/09/18 06:06 RBC 3.47 M/mm3 (3.65-5.03) L 11/09/18 06:06 Hgb 10.5 gm/dl (11.8-15.2) L 11/09/18 06:06 Hct 31.5 % (35.5-45.6) L 11/09/18 06:06 MCV 91 fl (84-94) 11/09/18 06:06 MCH 30 pg (28-32) 11/09/18 06:06 MCHC 33 % (32-34) 11/09/18 06:06 RDW 14.6 % (13.2-15.2) 11/09/18 06:06 Plt Count 452 K/mm3 (140-440) H 11/09/18 06:06 Lymph % (Auto) 16.9 % (13.4-35.0) 11/09/18 06:06 [place] % (Auto) 10.9 % (0.0-7.3) H 11/09/18 06:06 Eos % (Auto) 1.7 % (0.0-4.3) 11/09/18 06:06 Baso % (Auto) 0.5 % (0.0-1.8) 11/09/18 06:06 Lymph # 2.1 K/mm3 (1.2-5.4) 11/09/18 06:06 [place] # 1.4 K/mm3 (0.0-0.8) H 11/09/18 06:06 Eos # 0.2 K/mm3 (0.0-0.4) 11/09/18 06:06 Baso # 0.1 K/mm3 (0.0-0.1) 11/09/18 06:06 Add Manual Diff Complete 10/30/18 04:22 Total Counted 200 10/30/18 04:22 Seg Neutrophils % 70.0 % (40.0-70.0) 11/09/18 06:06 Seg Neuts % (Manual) 69.0 % (40.0-70.0) 10/30/18 04:22 26.0 % 10/30/18 04:22 1.5 % (13.4-35.0) L 10/30/18 04:22 Reactive Lymphs % (Man) 0 % 10/30/18 04:22 2.0 % (0.0-7.3) 10/30/18 04:22 0 % (0.0-4.3) 10/30/18 04:22 0 % (0.0-1.8) 10/30/18 04:22 1.0 % 10/30/18 04:22 0.5 % 10/30/18 04:22 0 % 10/30/18 04:22 0 % 10/30/18 04:22 Nucleated RBC % Not Reportable 10/30/18 04:22 Seg Neutrophils # 8.9 K/mm3 (1.8-7.7) H 11/09/18 06:06 Seg Neutrophils # Man 18.6 K/mm3 (1.8-7.7) H 10/30/18 04:22 Band Neutrophils # 7.0 K/mm3 10/30/18 04:22 0.4 K/mm3 (1.2-5.4) L 10/30/18 04:22 Abs React Lymphs (Man) 0.0 K/mm3 10/30/18 04:22 0.5 K/mm3 (0.0-0.8) 10/30/18 04:22 0.0 K/mm3 (0.0-0.4) 10/30/18 04:22 0.0 K/mm3 (0.0-0.1) 10/30/18 04:22 0.3 K/mm3 10/30/18 04:22 0.1 K/mm3 10/30/18 04:22 0.0 K/mm3 10/30/18 04:22 Blast Cells # 0.0 K/mm3 10/30/18 04:22 Pathologist Review 10/11/18 00:16 WBC Morphology Not Reportable 10/30/18 04:22 WBC Morphology TNR 10/30/18 04:22 Hypersegmented Neuts Not Reportable 10/30/18 04:22 Hyposegmented Neuts Not Reportable 10/30/18 04:22 Hypogranular Neuts Not Reportable 10/30/18 04:22 Not Reportable 10/30/18 04:22 Not Reportable 10/30/18 04:22 Not Reportable 10/30/18 04:22 Not Reportable 10/30/18 04:22 Not Reportable 10/30/18 04:22 Not Reportable 10/30/18 04:22 Consistent w auto 10/30/18 04:22 Not Reportable 10/30/18 04:22 Plt Clumps, EDTA Not Reportable 10/30/18 04:22 Not Reportable 10/30/18 04:22 Not Reportable 10/30/18 04:22 Not Reportable 10/30/18 04:22 Plt Morphology Comment Not Reportable 10/30/18 04:22 RBC Morphology Not Reportable 10/30/18 04:22 Dimorphic RBCs Not Reportable 10/30/18 04:22 Not Reportable 10/30/18 04:22 Not Reportable 10/30/18 04:22 Not Reportable 10/30/18 04:22 Not Reportable 10/30/18 04:22 Not Reportable 10/30/18 04:22 Not Reportable 10/30/18 04:22 Not Reportable 10/30/18 04:22 Not Reportable 10/30/18 04:22 Not Reportable 10/30/18 04:22 Not Reportable 10/30/18 04:22 Not Reportable 10/30/18 04:22 Not Reportable 10/30/18 04:22 Not Reportable 10/30/18 04:22 Not Reportable 10/30/18 04:22 Not Reportable 10/30/18 04:22 Not Reportable 10/30/18 04:22 Not Reportable 10/30/18 04:22 Not Reportable 10/30/18 04:22 Not Reportable 10/30/18 04:22 Acanthocytes (Spur) Not Reportable 10/30/18 04:22 Rouleaux Not Reportable 10/30/18 04:22 Not Reportable 10/30/18 04:22 Not Reportable 10/30/18 04:22 Not Reportable 10/30/18 04:22 Not Reportable 10/30/18 04:22 Hem Pathologist Commnt No 10/30/18 04:22 PT 13.9 Sec. (12.2-14.9) 10/29/18 07:11 INR 1.01 (0.87-1.13) 10/29/18 07:11 APTT 30.3 Sec. (24.2-36.6) 10/27/18 13:33 Heparin Anti-Xa Level 1.05 U.I./ml (0.3-0.7) H 11/01/18 11:38 Heparin Anti-Xa, Unfract Negative (Negative) 10/15/18 12:00 POC ABG pH 7.393 (7.35-7.45) 10/16/18 12:51 POC ABG pCO2 48.9 (35-45) H 10/16/18 12:51 POC ABG pO2 92 (80-105) 10/16/18 12:51 POC ABG HCO3 29.8 (22-26 mml/L) 10/16/18 12:51 POC ABG Total CO2 31 (23-27mmol/L) 10/16/18 12:51 POC ABG O2 Sat 97 10/16/18 12:51 POC ABG Base Excess 5 ((-2) - (+3)mmol/L) 10/16/18 12:51 35 % 10/16/18 12:51 Sodium 129 mmol/L (137-145) L 11/09/18 06:06 Potassium 4.6 mmol/L (3.6-5.0) 11/09/18 06:06 Chloride 94.5 mmol/L (98-107) L 11/09/18 06:06 Carbon Dioxide 24 mmol/L (22-30) 11/09/18 06:06 15 mmol/L 11/09/18 06:06 BUN 14 mg/dL (9-20) 11/09/18 06:06 0.4 mg/dL (0.8-1.5) L 11/09/18 06:06 Estimated GFR > 60 ml/min 11/09/18 06:06 35 % 11/09/18 06:06 Glucose 136 mg/dL (75-100) H 11/09/18 06:06 POC Glucose 133 (70-105) H 11/09/18 07:36 Lactic Acid 2.70 mmol/L (0.7-2.0) H* 10/11/18 12:30 Calcium 8.4 mg/dL (8.4-10.2) 11/09/18 06:06 Phosphorus 2.80 mg/dL (2.5-4.5) 10/21/18 04:59 Magnesium 1.70 mg/dL (1.7-2.3) 11/01/18 05:52 0.70 mg/dL (0.1-1.2) 11/04/18 15:45 AST 38 units/L (5-40) 11/04/18 15:45 ALT 23 units/L (7-56) 11/04/18 15:45 54 units/L (35-129) 11/04/18 15:45 3647 units/L (55-170) H 10/12/18 04:04 CK-MB (CK-2) 48.3 ng/mL (0.0-4.0) H 10/12/18 04:04 CK-MB (CK-2) Rel Index 1.3 (0-4) 10/12/18 04:04 0.816 ng/mL (0.00-0.029) H* 10/13/18 16:15 6.8 g/dL (6.3-8.2) 11/04/18 15:45 2.6 g/dL (3.9-5) L 11/04/18 15:45 0.6 % 11/04/18 15:45 0.073 g/L (0.200-0.400) L 11/04/18 15:45 Triglycerides 87 mg/dL (2-149) 10/11/18 00:16 Cholesterol 73 mg/dL (50-199) 10/11/18 00:16 51 mg/dL (50-130) 10/11/18 00:16 19 mg/dL (40-59) L 10/11/18 00:16 3.84 % 10/11/18 00:16 See scanned report 10/15/18 12:00 Yellow (Yellow) 10/11/18 01:42 Cloudy (Clear) 10/11/18 01:42 6.0 (5.0-7.0) 10/11/18 01:42 Ur Specific [place] 1.011 (1.003-1.030) 10/11/18 01:42 100 mg/dl mg/dL (Negative) 10/11/18 01:42 >=500 mg/dL (Negative) 10/11/18 01:42 Neg mg/dL (Negative) 10/11/18 01:42 Mod (Negative) 10/11/18 01:42 Neg (Negative) 10/11/18 01:42 Neg (Negative) 10/11/18 01:42 4.0 mg/dL (<2.0) 10/11/18 01:42 Ur Leukocyte Esterase Neg (Negative) 10/11/18 01:42 5.0 /HPF (0.0-6.0) 10/11/18 01:42 2.0 /HPF (0.0-6.0) 10/11/18 01:42 U Epithel Cells (Auto) < 1.0 /HPF (0-13.0) 10/11/18 01:42 Amorphous Crystals 1+ 10/11/18 01:42 Few /HPF 10/11/18 01:42 2+ /HPF (RECORDS MANAGEMENT ANALYST) 10/11/18 01:42 Vancomycin Trough 8.3 ug/mL (5.0-20.0) 10/13/18 05:40 Salicylates < 0.3 mg/dL (2.8-20.0) L 10/11/18 00:16 Presumptive positive 10/11/18 01:42 Presumptive negative 10/11/18 01:42 Acetaminophen < 5.0 ug/mL (10.0-30.0) L 10/11/18 00:16 Ur Barbiturates Screen Presumptive negative 10/11/18 01:42 Ur Phencyclidine Scrn Presumptive negative 10/11/18 01:42 Ur Amphetamines Screen Presumptive positive 10/11/18 01:42 U Benzodiazepines Scrn Presumptive positive 10/11/18 01:42 Presumptive negative 10/11/18 01:42 U Marijuana (THC) Screen Presumptive negative 10/11/18 01:42 Disclamer 10/11/18 01:42 Plasma/Serum Alcohol < 0.01 % (0-0.07) 10/11/18 00:16 Heparin-induced Plt Ab Negative (Negative) 10/15/18 12:00 UF Heparin High Dose 0 % Release 10/15/18 12:00 AURELIO UFH Low Dose 0.1 0 % Release 10/15/18 12:00 AURELIO UFH Low Dose 0.5 0 % Release 10/15/18 12:00 Blood Type O POSITIVE 10/31/18 08:07 Antibody Screen Positive 10/31/18 08:07 Antibody Identification Negative 10/31/18 08:07 Direct Antiglob Test Negative 10/31/18 08:07 SHASHANK, Poly Interpret Negative 10/31/18 08:07 Crossmatch See Detail 10/31/18 08:07 Active Medications - Current Medications Current Medications: Generic Name Dose Route Start Last Admin Trade Name Freq PRN Reason Stop Dose Admin Acetaminophen 650 mg 10/11/18 04:04 10/21/18 22:21 Tylenol PO 650 mg Q4H PRN Administration Pain MILD(1-3)/Fever >100.5/HOLLINS Albuterol 2.5 mg 10/19/18 00:54 Proventil IH Q4HRT PRN Shortness Of Breath Albuterol/Ipratropium 1 ampul 10/19/18 08:00 11/09/18 08:32 Duoneb *Not For Prn Use* IH 1 ampul TIDRT ISAAC Administration Alprazolam 1 mg 10/20/18 13:06 11/07/18 13:43 Xanax PO 1 mg TID PRN Administration Anxiety Apixaban 5 mg 11/08/18 22:00 11/08/18 22:19 Eliquis PO 5 mg Q12HR ISAAC Administration Protocol Aspirin 81 mg 11/01/18 16:00 11/08/18 12:29 Halfprin Ec PO 81 mg QDAY ISAAC Administration Buprenorphine HCl 2 each 11/05/18 10:00 11/08/18 13:29 Suboxone 2 Mg-0.5 Mg SL 2 each QDAY ISAAC Administration Citalopram Hydrobromide 20 mg 11/05/18 10:00 11/08/18 12:29 Celexa PO 20 mg QDAY ISAAC Administration Dextrose 0 ml 10/11/18 03:57 10/11/18 10:18 D50w (25gm) Syringe IV 10 ml PRN PRN Administration Hypoglycemia Docusate Sodium 100 mg 11/04/18 22:00 11/08/18 22:19 Colace PO 100 mg BID ISAAC Administration Famotidine 20 mg 10/15/18 10:00 11/08/18 22:19 Pepcid PO 20 mg BID ISAAC Administration Insulin Human Regular 0 units 10/17/18 11:30 11/09/18 02:47 Humulin R SUB-Q Not Given ACHS ISAAC Protocol Metoprolol Tartrate 25 mg 10/18/18 22:00 11/08/18 22:20 Lopressor PO Not Given BID ISAAC Metoprolol Tartrate 2.5 mg 10/18/18 18:51 10/18/18 22:19 Lopressor IV 2.5 mg Q6H PRN Administration Tachyarrhythmias Naloxone HCl 0.1 mg 10/29/18 16:03 Narcan 0.4 Mg/1 Ml IV Q2MIN PRN Res Rate </= 8 or 02 SAT < 92% Ondansetron HCl 4 mg 10/11/18 04:04 11/01/18 22:12 Zofran IV 4 mg Q8H PRN Administration Nausea And Vomiting Oxycodone/Acetaminophen 1 tab 10/18/18 13:45 11/09/18 03:00 Percocet 5/325 PO 1 tab Q6H PRN Administration Pain, Moderate (4-6) Nutrition/Malnutrition Assess - Dietary Evaluation Nutrition/Malnutrition Findings: Nutrition Notes Start: 10/11/18 12:39 Freq: Status: Active Protocol: Document 11/06/18 16:04 SHERLY (Rec: 11/06/18 16:14 [id number] [email or web address]) Nutrition Notes Initial or Follow up Reassessment Current Diagnosis COPD,Diabetes,Sepsis, Hypertension,Heart Failure, Stroke Other Pertinent Diagnosis s/p (L) BKA Current Diet Mech soft + Glucerna and Hern[place] BID Labs/Tests BG 163 Pertinent Medications Reviewed Height 6 ft 3 in Weight 55.2 kg [place] Body Weight (kg) 89.09 BMI 15.2 Weight change and time frame Current wt obtained from bed scale. Adj wt for BKA: 58.66kg Adj BMI: 16.1 Subjective/Other Information Pt has consumed 55% of meals over the past two days. He is confused at times and requires assistance during meal times. RD assisted pt with lunch today; he ate <25% of meal. He is edentulous, but does not want pureed foods. Takes him a long time to chew foods. Pt encouraged to drink ONS ( Glucerna and [place]) Percent of energy/protein needs met: 62% energy 66% pro (without ONS) Burn Absent Trauma Absent #2 Nutrition Diagnosis Inadequate oral intake Diagnosis Progress(for reassessment Continues documentation) #1 Nutrition Diagnosis Malnutrition Diagnosis Progress(for reassessment Continues documentation) Is patient on ventilator? No Is Patient Ambulatory and/or Out of Bed Yes REE-([facility]-ambulatory/OOB) [ 1907.919 [id number]] Kcal/Kg value to use for calculation 40 Approximate Energy Requirements Using 2208 kcal/Kg Calculation Used for Recommendations Kcal/kg Additional Notes Pro needs 1.5-2g/k-110g/ day Fluid needs 1ml/kcal Nutrition Intervention Change Diet Order: Continue current diet order Add Supplement/Snack (indicate name/kcal Glucerna BID + [place] BID /protein ) Provides kCal: 630 Provides Protein (gm) 25 Goal #1 PO intake of meals plus ONS to meet 100% energy and pro needs Goal #2 Wt maintenance and/or gain Follow-Up By: 11/13/18 Additional Comments F/U: intakes, wt
--- NOTE | 2018-11-09 09:48 | Progress Note ---
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 His right leg demonstrates gangrenous changes to the toe however, the patient has no complaints on the right leg at this time. Subjective Date of service: 11/09/18 Principal diagnosis: Ac hypercapnic hypoxemic Resp failure; Drug OD; AE-COPD; NINOSKA; Seizures Interval history: Patient with devascularized for skin extending to the staple line along the lateral aspect of his left below the knee amputation. There is surrounding erythema. With minimal drainage. Pain to this area that is worsening. Objective - Constitutional Vitals: Vital Signs - 12hr 11/08/18 11/08/18 11/09/18 22:11 22:20 00:17 Temperature 98.7 F 98.0 F Pulse Rate 71 73 73 Respiratory 18 16 Rate Blood Pressure 98/50 98/50 95/56 O2 Sat by Pulse 88 93 Oximetry General appearance: Present: no acute distress - EENT Eyes: EOM intact ENT: hearing intact - Neck Neck: supple, normal ROM - Respiratory Respiratory effort: normal Extremities: abnormal - Gastrointestinal General gastrointestinal: Present: deferred Rectal Exam: deferred - Genitourinary Male genitourinary: deferred - Psychiatric Psychiatric: cooperative - Labs CBC & Chem 7: 11/09/18 06:06 11/09/18 06:06 Labs: Abnormal lab results 11/08/18 11/08/18 11/08/18 Range/Units 11:48 16:32 16:32 WBC 11.3 H (4.5-11.0) K/mm3 RBC 3.40 L (3.65-5.03) M/mm3 Hgb 10.3 L (11.8-15.2) gm/dl Hct 30.5 L (35.5-45.6) % Plt Count 465 H (140-440) K/mm3 [place] % (Auto) 9.3 H (0.0-7.3) % [place] # 1.0 H (0.0-0.8) K/mm3 Seg Neutrophils % 73.1 H (40.0-70.0) % Seg Neutrophils # 8.3 H (1.8-7.7) K/mm3 Sodium 133 L (137-145) mmol/L Chloride 96.7 L (98-107) mmol/L Creatinine 0.4 L (0.8-1.5) mg/dL Glucose 187 H (75-100) mg/dL POC Glucose 144 H (70-105) 11/08/18 11/09/18 11/09/18 Range/Units 16:52 01:48 06:06 WBC 12.7 H (4.5-11.0) K/mm3 RBC 3.47 L (3.65-5.03) M/mm3 Hgb 10.5 L (11.8-15.2) gm/dl Hct 31.5 L (35.5-45.6) % Plt Count 452 H (140-440) K/mm3 [place] % (Auto) 10.9 H (0.0-7.3) % [place] # 1.4 H (0.0-0.8) K/mm3 Seg Neutrophils % (40.0-70.0) % Seg Neutrophils # 8.9 H (1.8-7.7) K/mm3 Sodium (137-145) mmol/L Chloride (98-107) mmol/L Creatinine (0.8-1.5) mg/dL Glucose (75-100) mg/dL POC Glucose 220 H 146 H (70-105) 11/09/18 11/09/18 Range/Units 06:06 07:36 WBC (4.5-11.0) K/mm3 RBC (3.65-5.03) M/mm3 Hgb (11.8-15.2) gm/dl Hct (35.5-45.6) % Plt Count (140-440) K/mm3 [place] % (Auto) (0.0-7.3) % [place] # (0.0-0.8) K/mm3 Seg Neutrophils % (40.0-70.0) % Seg Neutrophils # (1.8-7.7) K/mm3 Sodium 129 L (137-145) mmol/L Chloride 94.5 L (98-107) mmol/L Creatinine 0.4 L (0.8-1.5) mg/dL Glucose 136 H (75-100) mg/dL POC Glucose 133 H (70-105) Medications & Allergies - Medications Allergies/Adverse Reactions: Allergies No Known Allergies Allergy (Verified 10/31/14 11:20) Home Medications: Home Medications Medication Instructions Recorded Confirmed Last Taken Type Gabapentin [Neurontin] 90 mg PO Q8HR 04/22/15 11/01/18 04/21/15 History ALPRAZolam [Xanax TAB] 1 mg PO TID PRN #30 tablet 03/28/16 11/01/18 Unknown Rx Albuterol Sulfate [Ventolin HFA] 2 puff IH Q4H PRN #1 hfa.aer.ad 03/28/16 11/01/18 Unknown Rx Ciprofloxacin HCl [Ciprofloxacin 500 mg PO Q12HR #30 tab 03/28/16 11/01/18 Unknown Rx TAB] Citalopram [celeXA] 10 mg PO QDAY #30 tablet 03/28/16 11/01/18 Unknown Rx Nicotine [Habitrol] 14 mg TD QDAY #30 patch 03/28/16 11/01/18 Unknown Rx Sitagliptin Phos/Metformin HCl 1 tab PO QDAY #30 tbmp.24hr 03/28/16 11/01/18 Unknown Rx [Janumet XR 100-1,000 mg] oxyCODONE /ACETAMINOPHEN [Percocet 1 tab PO Q6H PRN #60 tablet 03/28/16 11/01/18 Unknown Rx 5/325 mg] Active Medications: Generic Name Dose Route Start Last Admin Trade Name Freq PRN Reason Stop Dose Admin Acetaminophen 650 mg 10/11/18 04:04 10/21/18 22:21 Tylenol PO 650 mg Q4H PRN Administration Pain MILD(1-3)/Fever >100.5/HOLLINS Albuterol 2.5 mg 10/19/18 00:54 Proventil IH Q4HRT PRN Shortness Of Breath Albuterol/Ipratropium 1 ampul 10/19/18 08:00 11/09/18 08:32 Duoneb *Not For Prn Use* IH 1 ampul TIDRT ISAAC Administration Alprazolam 1 mg 10/20/18 13:06 11/07/18 13:43 Xanax PO 1 mg TID PRN Administration Anxiety Apixaban 5 mg 11/08/18 22:00 11/08/18 22:19 Eliquis PO 5 mg Q12HR ISAAC Administration Protocol Aspirin 81 mg 11/01/18 16:00 11/08/18 12:29 Halfprin Ec PO 81 mg QDAY ISAAC Administration Buprenorphine HCl 2 each 11/05/18 10:00 11/08/18 13:29 Suboxone 2 Mg-0.5 Mg SL 2 each QDAY ISAAC Administration Citalopram Hydrobromide 20 mg 11/05/18 10:00 11/08/18 12:29 Celexa PO 20 mg QDAY ISAAC Administration Dextrose 0 ml 10/11/18 03:57 10/11/18 10:18 D50w (25gm) Syringe IV 10 ml PRN PRN Administration Hypoglycemia Docusate Sodium 100 mg 11/04/18 22:00 11/08/18 22:19 Colace PO 100 mg BID ISAAC Administration Famotidine 20 mg 10/15/18 10:00 11/08/18 22:19 Pepcid PO 20 mg BID ISAAC Administration Insulin Human Regular 0 units 10/17/18 11:30 11/09/18 02:47 Humulin R SUB-Q [facility] Protocol Metoprolol Tartrate 25 mg 10/18/18 22:00 11/08/18 22:20 Lopressor PO Not Given BID [facility] Metoprolol Tartrate 2.5 mg 10/18/18 18:51 10/18/18 22:19 Lopressor IV 2.5 mg Q6H PRN Administration Tachyarrhythmias Naloxone HCl 0.1 mg 10/29/18 16:03 Narcan 0.4 Mg/1 Ml IV Q2MIN PRN Res Rate </= 8 or 02 SAT < 92% Ondansetron HCl 4 mg 10/11/18 04:04 11/01/18 22:12 Zofran IV 4 mg Q8H PRN Administration Nausea And Vomiting Oxycodone/Acetaminophen 1 tab 10/18/18 13:45 11/09/18 03:00 Percocet 5/325 PO 1 tab Q6H PRN Administration Pain, Moderate (4-6)
[2018-11-09] MEDS: SUBOXONE 2 MG-0.5 MG SL SCH (10:00)
[2018-11-09] MEDS: celeXA PO SCH (10:06)
[2018-11-09] MEDS: HALFPRIN EC PO SCH (10:06)
[2018-11-09] MEDS: PEPCID PO SCH ×2 (10:06→23:01)
[2018-11-09] MEDS: ELIQUIS PO SCH ×2 (10:07→23:00)
[2018-11-09] MEDS: COLACE PO SCH ×2 (10:08→23:01)
[2018-11-09] MEDS: LOPRESSOR PO SCH ×2 (10:08→23:01)
--- NOTE | 2018-11-09 13:01 | Progress Note ---
Assessment and Plan Acute hypoxemic respiratory failure, on mechanical ventilator support. Drug overdose. Acute chronic obstructive pulmonary disease exacerbation. Severe PVD Witnessed seizure en route. Acute kidney injury. Leukocytosis. Hypercapnia. Hyperkalemia. Metabolic acidosis. Lactic acidosis. Non-ST elevation myocardial infarction. Elevated serum transaminases. - continue IV heparin for PVD (prn H&H) - good response to volume bolus - begin Levophed if persistent hypotension - discontinue edmondson catheter if ok with surgeon - continue bronchodilators with pulmonary hygiene per RT - continue GI & VTE prophylaxis - prn supplemental oxygen to keep O2 sats 88-90% - follow clinically off AB's - Aspiration precautions - Accuchecks with glycemic control. Target glucose of 140-180 mg/dL - Maintenance of sleep -wake cycle - Mobility as tolerated by hemodynamics - Influenza and pneumonia vaccination per protocol ..care plan discussed at length with RN/RT at the bedside Subjective Date of service: 11/09/18 Principal diagnosis: Ac hypercapnic hypoxemic Resp failure; Drug OD; AE-COPD; NINOSKA; Seizures Interval history: Patient is seen today for: Acute hypoxemic respiratory failure, on mechanical ventilator support; Drug overdose; Acute chronic obstructive pulmonary disease exacerbation; Witnessed seizure en route; Acute kidney injury; Leukocytosis; Hypercapnia. Seen and examined at bedside; 24-hour events reviewed; nursing and respiratory care staff consulted; no adverse overnight events reported to me; Objective Vital Signs - 12hr 11/09/18 11/09/18 11/09/18 05:34 10:00 11:47 Temperature 97.5 F L 97.8 F Pulse Rate 66 72 Respiratory 16 18 Rate Blood Pressure 103/58 107/68 O2 Sat by Pulse 92 94 93 Oximetry Constitutional: no acute distress, other (middle aged but chronically ill looking CM; Atraumatic) Eyes: non-icteric ENT: oropharynx moist, other (mallampati 2) Neck: supple, no lymphadenopathy, no JVD Effort: normal Ascultation: Bilateral: clear, diminished breath sounds, rhonchi Percussion: Bilateral: not dull Cardiovascular: irregular rhythm, other (No R/M) Gastrointestinal: normoactive bowel sounds, soft, non-tender, non-distended Integumentary: other (poor turgor) Extremities: no edema, no ischemia or petechiae, other (cool left leg campbell-down; with digital gangrene of left foot also) Neurologic: normal mental status, pupils equal and round, other (Left hemiparesis, improving) Psychiatric: mood appropriate, affect normal CBC and BMP: 11/09/18 06:06 11/09/18 06:06 ABG, PT/INR, D-dimer: ABG POC ABG pH 7.393 (7.35-7.45) 10/16/18 12:51 POC ABG pCO2 48.9 (35-45) H 10/16/18 12:51 POC ABG pO2 92 (80-105) 10/16/18 12:51 POC ABG HCO3 29.8 (22-26 mml/L) 10/16/18 12:51 POC ABG Total CO2 31 (23-27mmol/L) 10/16/18 12:51 POC ABG O2 Sat 97 10/16/18 12:51 PT/INR, D-dimer PT 13.9 Sec. (12.2-14.9) 10/29/18 07:11 INR 1.01 (0.87-1.13) 10/29/18 07:11 Abnormal lab findings: Abnormal Labs 10/11/18 10/11/18 10/11/18 00:16 00:16 00:16 WBC 20.1 H RBC Hgb Hct MCV 98 H MCHC RDW 15.4 H Plt Count Lymph % (Auto) [place] % (Auto) [place] # Seg Neutrophils % Seg Neuts % (Manual) Lymphocytes % (Manual) 5.0 L Monocytes % (Manual) 25.0 H Seg Neutrophils # Seg Neutrophils # Man 9.2 H Lymphocytes # (Manual) 1.0 L Monocytes # (Manual) 5.0 H APTT Heparin Anti-Xa Level POC ABG pH POC ABG pCO2 POC ABG pO2 Sodium Potassium 5.8 H Chloride Carbon Dioxide 17 L BUN Creatinine 2.2 H Glucose 348 H POC Glucose Lactic Acid 13.70 H* Calcium 7.7 L Phosphorus Total Bilirubin 1.50 H AST 179 H ALT 110 H Total Creatine Kinase 324 H CK-MB (CK-2) Troponin T 0.257 H* Total Protein 5.9 L Albumin 2.9 L Prealbumin HDL Cholesterol 19 L Salicylates Acetaminophen Crossmatch 10/11/18 10/11/18 10/11/18 00:16 00:16 01:21 WBC RBC Hgb Hct MCV MCHC RDW Plt Count Lymph % (Auto) [place] % (Auto) [place] # Seg Neutrophils % Seg Neuts % (Manual) Lymphocytes % (Manual) Monocytes % (Manual) Seg Neutrophils # Seg Neutrophils # Man Lymphocytes # (Manual) Monocytes # (Manual) APTT Heparin Anti-Xa Level POC ABG pH 7.110 L POC ABG pCO2 50.3 H POC ABG pO2 65 L Sodium Potassium Chloride Carbon Dioxide BUN Creatinine Glucose POC Glucose Lactic Acid Calcium Phosphorus Total Bilirubin AST ALT Total Creatine Kinase CK-MB (CK-2) Troponin T Total Protein Albumin Prealbumin HDL Cholesterol Salicylates < 0.3 L Acetaminophen < 5.0 L Crossmatch 10/11/18 10/11/18 10/11/18 01:22 03:27 04:14 WBC RBC Hgb Hct MCV MCHC RDW Plt Count Lymph % (Auto) [place] % (Auto) [place] # Seg Neutrophils % Seg Neuts % (Manual) Lymphocytes % (Manual) Monocytes % (Manual) Seg Neutrophils # Seg Neutrophils # Man Lymphocytes # (Manual) Monocytes # (Manual) APTT Heparin Anti-Xa Level POC ABG pH POC ABG pCO2 POC ABG pO2 Sodium Potassium Chloride Carbon Dioxide BUN Creatinine Glucose POC Glucose Lactic Acid 8.50 H* 4.10 H* Calcium Phosphorus 4.90 H Total Bilirubin AST ALT Total Creatine Kinase CK-MB (CK-2) Troponin T Total Protein Albumin Prealbumin HDL Cholesterol Salicylates Acetaminophen Crossmatch 10/11/18 10/11/18 10/11/18 04:14 04:14 04:14 WBC RBC Hgb Hct MCV MCHC RDW Plt Count Lymph % (Auto) [place] % (Auto) [place] # Seg Neutrophils % Seg Neuts % (Manual) Lymphocytes % (Manual) Monocytes % (Manual) Seg Neutrophils # Seg Neutrophils # Man Lymphocytes # (Manual) Monocytes # (Manual) APTT Heparin Anti-Xa Level POC ABG pH POC ABG pCO2 POC ABG pO2 Sodium Potassium 5.6 H Chloride Carbon Dioxide 19 L BUN Creatinine 1.6 H Glucose 329 H POC Glucose 328 H Lactic Acid Calcium 7.3 L Phosphorus Total Bilirubin AST ALT Total Creatine Kinase CK-MB (CK-2) Troponin T 1.130 H* D Total Protein Albumin Prealbumin HDL Cholesterol Salicylates Acetaminophen Crossmatch 10/11/18 10/11/18 10/11/18 05:10 05:32 05:58 WBC RBC Hgb Hct MCV MCHC RDW Plt Count Lymph % (Auto) [place] % (Auto) [place] # Seg Neutrophils % Seg Neuts % (Manual) Lymphocytes % (Manual) Monocytes % (Manual) Seg Neutrophils # Seg Neutrophils # Man Lymphocytes # (Manual) Monocytes # (Manual) APTT Heparin Anti-Xa Level POC ABG pH 7.259 L POC ABG pCO2 45.6 H POC ABG pO2 Sodium Potassium Chloride 108.6 H Carbon Dioxide 20 L BUN Creatinine 1.8 H Glucose 269 H POC Glucose 273 H Lactic Acid Calcium 7.0 L Phosphorus Total Bilirubin AST ALT Total Creatine Kinase CK-MB (CK-2) Troponin T Total Protein Albumin Prealbumin HDL Cholesterol Salicylates Acetaminophen Crossmatch 10/11/18 10/11/18 10/11/18 05:58 06:39 07:00 WBC RBC Hgb Hct MCV MCHC RDW Plt Count Lymph % (Auto) [place] % (Auto) [place] # Seg Neutrophils % Seg Neuts % (Manual) Lymphocytes % (Manual) Monocytes % (Manual) Seg Neutrophils # Seg Neutrophils # Man Lymphocytes # (Manual) Monocytes # (Manual) APTT Heparin Anti-Xa Level POC ABG pH POC ABG pCO2 POC ABG pO2 Sodium Potassium Chloride Carbon Dioxide BUN Creatinine Glucose POC Glucose 247 H Lactic Acid 3.20 H* 3.30 H* Calcium Phosphorus Total Bilirubin AST ALT Total Creatine Kinase CK-MB (CK-2) Troponin T Total Protein Albumin Prealbumin HDL Cholesterol Salicylates Acetaminophen Crossmatch 10/11/18 10/11/18 10/11/18 07:00 07:30 07:36 WBC RBC Hgb Hct MCV MCHC RDW Plt Count Lymph % (Auto) [place] % (Auto) [place] # Seg Neutrophils % Seg Neuts % (Manual) Lymphocytes % (Manual) Monocytes % (Manual) Seg Neutrophils # Seg Neutrophils # Man Lymphocytes # (Manual) Monocytes # (Manual) APTT Heparin Anti-Xa Level POC ABG pH POC ABG pCO2 POC ABG pO2 Sodium 146 H Potassium Chloride 112.1 H Carbon Dioxide 21 L BUN Creatinine 1.6 H Glucose 218 H POC Glucose Lactic Acid 3.20 H* Calcium 7.0 L Phosphorus Total Bilirubin AST ALT Total Creatine Kinase CK-MB (CK-2) Troponin T 1.020 H* Total Protein Albumin Prealbumin HDL Cholesterol Salicylates Acetaminophen Crossmatch 10/11/18 10/11/1819 07:43 08:29 08:29 WBC RBC Hgb 16.2 H Hct 49.9 H D MCV MCHC RDW Plt Count Lymph % (Auto) [place] % (Auto) [place] # Seg Neutrophils % Seg Neuts % (Manual) Lymphocytes % (Manual) Monocytes % (Manual) Seg Neutrophils # Seg Neutrophils # Man Lymphocytes # (Manual) Monocytes # (Manual) APTT Heparin Anti-Xa Level POC ABG pH POC ABG pCO2 POC ABG pO2 Sodium Potassium Chloride Carbon Dioxide BUN Creatinine Glucose POC Glucose 174 H Lactic Acid 3.90 H* Calcium Phosphorus Total Bilirubin AST ALT Total Creatine Kinase CK-MB (CK-2) Troponin T Total Protein Albumin Prealbumin HDL Cholesterol Salicylates Acetaminophen Crossmatch 10/11/18 10/11/18 10/11/18 08:29 08:42 11:05 WBC RBC Hgb Hct MCV MCHC RDW Plt Count Lymph % (Auto) [place] % (Auto) [place] # Seg Neutrophils % Seg Neuts % (Manual) Lymphocytes % (Manual) Monocytes % (Manual) Seg Neutrophils # Seg Neutrophils # Man Lymphocytes # (Manual) Monocytes # (Manual) APTT 24.1 L Heparin Anti-Xa Level POC ABG pH POC ABG pCO2 POC ABG pO2 Sodium 147 H Potassium Chloride 113.3 H Carbon Dioxide 21 L BUN Creatinine 1.7 H Glucose 119 H POC Glucose 164 H Lactic Acid Calcium 7.7 L Phosphorus Total Bilirubin AST ALT Total Creatine Kinase CK-MB (CK-2) Troponin T Total Protein Albumin Prealbumin HDL Cholesterol Salicylates Acetaminophen Crossmatch 10/11/18 10/11/18 10/11/18 11:05 11:06 12:30 WBC RBC Hgb Hct MCV MCHC RDW Plt Count Lymph % (Auto) [place] % (Auto) [place] # Seg Neutrophils % Seg Neuts % (Manual) Lymphocytes % (Manual) Monocytes % (Manual) Seg Neutrophils # Seg Neutrophils # Man Lymphocytes # (Manual) Monocytes # (Manual) APTT Heparin Anti-Xa Level POC ABG pH POC ABG pCO2 POC ABG pO2 Sodium 148 H Potassium Chloride 113.4 H Carbon Dioxide 21 L BUN Creatinine 1.6 H Glucose 119 H POC Glucose 116 H Lactic Acid 3.20 H* Calcium 7.5 L Phosphorus Total Bilirubin AST ALT Total Creatine Kinase CK-MB (CK-2) Troponin T Total Protein Albumin Prealbumin HDL Cholesterol Salicylates Acetaminophen Crossmatch 10/11/18 10/11/18 10/11/18 12:30 13:16 13:25 WBC RBC Hgb Hct MCV MCHC RDW Plt Count Lymph % (Auto) [place] % (Auto) [place] # Seg Neutrophils % Seg Neuts % (Manual) Lymphocytes % (Manual) Monocytes % (Manual) Seg Neutrophils # Seg Neutrophils # Man Lymphocytes # (Manual) Monocytes # (Manual) APTT Heparin Anti-Xa Level POC ABG pH 7.247 L POC ABG pCO2 48.4 H POC ABG pO2 Sodium Potassium Chloride Carbon Dioxide BUN Creatinine Glucose POC Glucose 112 H Lactic Acid 2.70 H* Calcium Phosphorus Total Bilirubin AST ALT Total Creatine Kinase CK-MB (CK-2) Troponin T Total Protein Albumin Prealbumin HDL Cholesterol Salicylates Acetaminophen Crossmatch 10/11/18 10/11/18 10/11/18 14:41 15:27 16:13 WBC RBC Hgb Hct MCV MCHC RDW Plt Count Lymph % (Auto) [place] % (Auto) [place] # Seg Neutrophils % Seg Neuts % (Manual) Lymphocytes % (Manual) Monocytes % (Manual) Seg Neutrophils # Seg Neutrophils # Man Lymphocytes # (Manual) Monocytes # (Manual) APTT Heparin Anti-Xa Level POC ABG pH POC ABG pCO2 POC ABG pO2 Sodium Potassium Chloride Carbon Dioxide BUN Creatinine Glucose POC Glucose 127 H 141 H 134 H Lactic Acid Calcium Phosphorus Total Bilirubin AST ALT Total Creatine Kinase CK-MB (CK-2) Troponin T Total Protein Albumin Prealbumin HDL Cholesterol Salicylates Acetaminophen Crossmatch 10/11/18 10/11/18 10/11/18 17:18 18:23 19:38 WBC RBC Hgb Hct MCV MCHC RDW Plt Count Lymph % (Auto) [place] % (Auto) [place] # Seg Neutrophils % Seg Neuts % (Manual) Lymphocytes % (Manual) Monocytes % (Manual) Seg Neutrophils # Seg Neutrophils # Man Lymphocytes # (Manual) Monocytes # (Manual) APTT Heparin Anti-Xa Level POC ABG pH POC ABG pCO2 POC ABG pO2 Sodium 148 H Potassium Chloride 112.7 H Carbon Dioxide BUN 23 H Creatinine Glucose 143 H POC Glucose 132 H 129 H Lactic Acid Calcium 7.9 L Phosphorus Total Bilirubin AST ALT Total Creatine Kinase CK-MB (CK-2) Troponin T Total Protein Albumin Prealbumin HDL Cholesterol Salicylates Acetaminophen Crossmatch 10/11/18 10/11/18 10/11/18 20:19 20:36 21:01 WBC RBC Hgb Hct MCV MCHC RDW Plt Count Lymph % (Auto) [place] % (Auto) [place] # Seg Neutrophils % Seg Neuts % (Manual) Lymphocytes % (Manual) Monocytes % (Manual) Seg Neutrophils # Seg Neutrophils # Man Lymphocytes # (Manual) Monocytes # (Manual) APTT Heparin Anti-Xa Level POC ABG pH 7.281 L POC ABG pCO2 POC ABG pO2 Sodium Potassium Chloride Carbon Dioxide BUN Creatinine Glucose POC Glucose 129 H 151 H Lactic Acid Calcium Phosphorus Total Bilirubin AST ALT Total Creatine Kinase CK-MB (CK-2) Troponin T Total Protein Albumin Prealbumin HDL Cholesterol Salicylates Acetaminophen Crossmatch 10/11/18 10/11/18 10/12/18 22:04 23:15 01:18 WBC RBC Hgb Hct MCV MCHC RDW Plt Count Lymph % (Auto) [place] % (Auto) [place] # Seg Neutrophils % Seg Neuts % (Manual) Lymphocytes % (Manual) Monocytes % (Manual) Seg Neutrophils # Seg Neutrophils # Man Lymphocytes # (Manual) Monocytes # (Manual) APTT Heparin Anti-Xa Level POC ABG pH POC ABG pCO2 POC ABG pO2 Sodium Potassium Chloride Carbon Dioxide BUN Creatinine Glucose POC Glucose 147 H 143 H 158 H Lactic Acid Calcium Phosphorus Total Bilirubin AST ALT Total Creatine Kinase CK-MB (CK-2) Troponin T Total Protein Albumin Prealbumin HDL Cholesterol Salicylates Acetaminophen Crossmatch 10/12/18 10/12/18 10/12/18 02:13 03:18 04:04 WBC RBC Hgb Hct MCV MCHC RDW Plt Count Lymph % (Auto) [place] % (Auto) [place] # Seg Neutrophils % Seg Neuts % (Manual) Lymphocytes % (Manual) Monocytes % (Manual) Seg Neutrophils # Seg Neutrophils # Man Lymphocytes # (Manual) Monocytes # (Manual) APTT Heparin Anti-Xa Level POC ABG pH POC ABG pCO2 POC ABG pO2 Sodium 147 H Potassium Chloride 111.1 H Carbon Dioxide BUN 30 H Creatinine 2.0 H Glucose 154 H POC Glucose 148 H 142 H Lactic Acid Calcium 8.1 L Phosphorus Total Bilirubin AST 269 H ALT 204 H Total Creatine Kinase 3647 H CK-MB (CK-2) 48.3 H Troponin T 2.230 H* D Total Protein 5.8 L Albumin 2.6 L Prealbumin HDL Cholesterol Salicylates Acetaminophen Crossmatch 10/12/18 10/12/18 10/12/18 04:04 04:08 04:19 WBC 24.4 H RBC Hgb Hct MCV MCHC RDW Plt Count Lymph % (Auto) [place] % (Auto) [place] # Seg Neutrophils % Seg Neuts % (Manual) 32.0 L Lymphocytes % (Manual) Monocytes % (Manual) 8.0 H Seg Neutrophils # Seg Neutrophils # Man 7.8 H Lymphocytes # (Manual) Monocytes # (Manual) 2.0 H APTT Heparin Anti-Xa Level POC ABG pH 7.317 L POC ABG pCO2 49.3 H POC ABG pO2 Sodium Potassium Chloride Carbon Dioxide BUN Creatinine Glucose POC Glucose 143 H Lactic Acid Calcium Phosphorus Total Bilirubin AST ALT Total Creatine Kinase CK-MB (CK-2) Troponin T Total Protein Albumin Prealbumin HDL Cholesterol Salicylates Acetaminophen Crossmatch 10/12/18 10/12/18 10/12/18 05:29 06:52 08:09 WBC RBC Hgb Hct MCV MCHC RDW Plt Count Lymph % (Auto) [place] % (Auto) [place] # Seg Neutrophils % Seg Neuts % (Manual) Lymphocytes % (Manual) Monocytes % (Manual) Seg Neutrophils # Seg Neutrophils # Man Lymphocytes # (Manual) Monocytes # (Manual) APTT Heparin Anti-Xa Level POC ABG pH 7.322 L POC ABG pCO2 46.5 H POC ABG pO2 Sodium Potassium Chloride Carbon Dioxide BUN Creatinine Glucose POC Glucose 196 H 226 H Lactic Acid Calcium Phosphorus Total Bilirubin AST ALT Total Creatine Kinase CK-MB (CK-2) Troponin T Total Protein Albumin Prealbumin HDL Cholesterol Salicylates Acetaminophen Crossmatch 10/12/18 10/12/18 10/12/18 08:38 10:03 15:50 WBC RBC Hgb Hct MCV MCHC RDW Plt Count Lymph % (Auto) [place] % (Auto) [place] # Seg Neutrophils % Seg Neuts % (Manual) Lymphocytes % (Manual) Monocytes % (Manual) Seg Neutrophils # Seg Neutrophils # Man Lymphocytes # (Manual) Monocytes # (Manual) APTT Heparin Anti-Xa Level POC ABG pH POC ABG pCO2 POC ABG pO2 Sodium Potassium Chloride Carbon Dioxide BUN Creatinine Glucose POC Glucose 138 H 148 H 221 H Lactic Acid Calcium Phosphorus Total Bilirubin AST ALT Total Creatine Kinase CK-MB (CK-2) Troponin T Total Protein Albumin Prealbumin HDL Cholesterol Salicylates Acetaminophen Crossmatch 10/12/18 10/12/1810/12/19 18:39 20:56 21:34 WBC RBC Hgb Hct MCV MCHC RDW Plt Count Lymph % (Auto) [place] % (Auto) [place] # Seg Neutrophils % Seg Neuts % (Manual) Lymphocytes % (Manual) Monocytes % (Manual) Seg Neutrophils # Seg Neutrophils # Man Lymphocytes # (Manual) Monocytes # (Manual) APTT Heparin Anti-Xa Level POC ABG pH 7.336 L POC ABG pCO2 46.0 H POC ABG pO2 Sodium Potassium Chloride Carbon Dioxide BUN Creatinine Glucose POC Glucose 255 H 260 H Lactic Acid Calcium Phosphorus Total Bilirubin AST ALT Total Creatine Kinase CK-MB (CK-2) Troponin T Total Protein Albumin Prealbumin HDL Cholesterol Salicylates Acetaminophen Crossmatch 10/13/18 10/13/18 10/13/18 02:29 05:09 05:40 WBC 17.0 H RBC Hgb Hct MCV MCHC RDW Plt Count Lymph % (Auto) [place] % (Auto) 9.2 H [place] # 1.6 H Seg Neutrophils % 76.2 H Seg Neuts % (Manual) Lymphocytes % (Manual) Monocytes % (Manual) Seg Neutrophils # 12.9 H Seg Neutrophils # Man Lymphocytes # (Manual) Monocytes # (Manual) APTT Heparin Anti-Xa Level POC ABG pH POC ABG pCO2 POC ABG pO2 Sodium Potassium Chloride Carbon Dioxide BUN Creatinine Glucose POC Glucose 216 H 249 H Lactic Acid Calcium Phosphorus Total Bilirubin AST ALT Total Creatine Kinase CK-MB (CK-2) Troponin T Total Protein Albumin Prealbumin HDL Cholesterol Salicylates Acetaminophen Crossmatch 10/13/18 10/13/18 10/13/18 05:40 05:40 09:46 WBC RBC Hgb Hct MCV MCHC RDW Plt Count Lymph % (Auto) [place] % (Auto) [place] # Seg Neutrophils % Seg Neuts % (Manual) Lymphocytes % (Manual) Monocytes % (Manual) Seg Neutrophils # Seg Neutrophils # Man Lymphocytes # (Manual) Monocytes # (Manual) APTT Heparin Anti-Xa Level POC ABG pH POC ABG pCO2 POC ABG pO2 Sodium 146 H Potassium Chloride 109.8 H Carbon Dioxide BUN 35 H Creatinine Glucose 245 H POC Glucose 235 H Lactic Acid Calcium 7.9 L Phosphorus Total Bilirubin AST ALT Total Creatine Kinase CK-MB (CK-2) Troponin T 0.952 H* D Total Protein Albumin Prealbumin HDL Cholesterol Salicylates Acetaminophen Crossmatch 10/13/18 10/13/18 10/13/18 13:58 16:15 17:30 WBC RBC Hgb Hct MCV MCHC RDW Plt Count Lymph % (Auto) [place] % (Auto) [place] # Seg Neutrophils % Seg Neuts % (Manual) Lymphocytes % (Manual) Monocytes % (Manual) Seg Neutrophils # Seg Neutrophils # Man Lymphocytes # (Manual) Monocytes # (Manual) APTT Heparin Anti-Xa Level POC ABG pH POC ABG pCO2 51.2 H POC ABG pO2 Sodium Potassium Chloride Carbon Dioxide BUN Creatinine Glucose POC Glucose 139 H Lactic Acid Calcium Phosphorus Total Bilirubin AST ALT Total Creatine Kinase CK-MB (CK-2) Troponin T 0.816 H* Total Protein Albumin Prealbumin HDL Cholesterol Salicylates Acetaminophen Crossmatch 10/13/18 10/14/18 10/14/18 21:25 01:49 04:52 WBC RBC Hgb Hct MCV MCHC RDW Plt Count Lymph % (Auto) [place] % (Auto) [place] # Seg Neutrophils % Seg Neuts % (Manual) Lymphocytes % (Manual) Monocytes % (Manual) Seg Neutrophils # Seg Neutrophils # Man Lymphocytes # (Manual) Monocytes # (Manual) APTT Heparin Anti-Xa Level POC ABG pH POC ABG pCO2 56.0 H POC ABG pO2 Sodium Potassium Chloride Carbon Dioxide BUN Creatinine Glucose POC Glucose 205 H 166 H Lactic Acid Calcium Phosphorus Total Bilirubin AST ALT Total Creatine Kinase CK-MB (CK-2) Troponin T Total Protein Albumin Prealbumin HDL Cholesterol Salicylates Acetaminophen Crossmatch 10/14/18 10/14/18 10/14/18 05:32 09:45 09:45 WBC RBC Hgb 11.4 L Hct 34.5 L MCV MCHC RDW Plt Count 139 L Lymph % (Auto) [place] % (Auto) [place] # Seg Neutrophils % Seg Neuts % (Manual) Lymphocytes % (Manual) Monocytes % (Manual) Seg Neutrophils # Seg Neutrophils # Man Lymphocytes # (Manual) Monocytes # (Manual) APTT Heparin Anti-Xa Level POC ABG pH POC ABG pCO2 POC ABG pO2 Sodium 148 H Potassium Chloride 107.3 H Carbon Dioxide 34 H D BUN Creatinine 0.7 L D Glucose 191 H POC Glucose 164 H Lactic Acid Calcium 7.3 L Phosphorus Total Bilirubin AST 110 H ALT 91 H Total Creatine Kinase CK-MB (CK-2) Troponin T Total Protein 4.9 L Albumin 2.0 L Prealbumin HDL Cholesterol Salicylates Acetaminophen Crossmatch 10/14/18 10/14/18 10/14/18 10:54 12:20 18:30 WBC RBC Hgb Hct MCV MCHC RDW Plt Count Lymph % (Auto) [place] % (Auto) [place] # Seg Neutrophils % Seg Neuts % (Manual) Lymphocytes % (Manual) Monocytes % (Manual) Seg Neutrophils # Seg Neutrophils # Man Lymphocytes # (Manual) Monocytes # (Manual) APTT Heparin Anti-Xa Level POC ABG pH POC ABG pCO2 POC ABG pO2 Sodium Potassium Chloride Carbon Dioxide BUN Creatinine Glucose POC Glucose 173 H 158 H 108 H Lactic Acid Calcium Phosphorus Total Bilirubin AST ALT Total Creatine Kinase CK-MB (CK-2) Troponin T Total Protein Albumin Prealbumin HDL Cholesterol Salicylates Acetaminophen Crossmatch 10/14/18 10/15/18 10/15/18 21:54 02:12 04:19 WBC RBC Hgb Hct MCV MCHC RDW Plt Count Lymph % (Auto) [place] % (Auto) [place] # Seg Neutrophils % Seg Neuts % (Manual) Lymphocytes % (Manual) Monocytes % (Manual) Seg Neutrophils # Seg Neutrophils # Man Lymphocytes # (Manual) Monocytes # (Manual) APTT Heparin Anti-Xa Level POC ABG pH 7.491 H POC ABG pCO2 45.1 H POC ABG pO2 Sodium Potassium Chloride Carbon Dioxide BUN Creatinine Glucose POC Glucose 110 H 164 H Lactic Acid Calcium Phosphorus Total Bilirubin AST ALT Total Creatine Kinase CK-MB (CK-2) Troponin T Total Protein Albumin Prealbumin HDL Cholesterol Salicylates Acetaminophen Crossmatch 10/15/18 10/15/18 10/15/18 04:55 05:43 06:20 WBC RBC Hgb 11.7 L Hct 34.7 L MCV MCHC RDW Plt Count Lymph % (Auto) [place] % (Auto) [place] # Seg Neutrophils % Seg Neuts % (Manual) Lymphocytes % (Manual) Monocytes % (Manual) Seg Neutrophils # Seg Neutrophils # Man Lymphocytes # (Manual) Monocytes # (Manual) APTT Heparin Anti-Xa Level POC ABG pH POC ABG pCO2 47.3 H POC ABG pO2 78 L Sodium Potassium Chloride Carbon Dioxide BUN Creatinine Glucose POC Glucose 250 H Lactic Acid Calcium Phosphorus Total Bilirubin AST ALT Total Creatine Kinase CK-MB (CK-2) Troponin T Total Protein Albumin Prealbumin HDL Cholesterol Salicylates Acetaminophen Crossmatch 10/15/18 10/15/1819 12:00 12:00 12:11 WBC RBC Hgb 11.5 L Hct 34.0 L MCV MCHC RDW Plt Count Lymph % (Auto) [place] % (Auto) [place] # Seg Neutrophils % Seg Neuts % (Manual) Lymphocytes % (Manual) Monocytes % (Manual) Seg Neutrophils # Seg Neutrophils # Man Lymphocytes # (Manual) Monocytes # (Manual) APTT Heparin Anti-Xa Level POC ABG pH POC ABG pCO2 POC ABG pO2 Sodium 147 H Potassium Chloride 108.5 H Carbon Dioxide BUN Creatinine 0.7 L Glucose 209 H POC Glucose 197 H Lactic Acid Calcium 7.3 L Phosphorus Total Bilirubin AST ALT Total Creatine Kinase CK-MB (CK-2) Troponin T Total Protein Albumin Prealbumin HDL Cholesterol Salicylates Acetaminophen Crossmatch 10/15/18 10/15/18 10/15/18 15:48 18:34 21:29 WBC RBC Hgb Hct MCV MCHC RDW Plt Count Lymph % (Auto) [place] % (Auto) [place] # Seg Neutrophils % Seg Neuts % (Manual) Lymphocytes % (Manual) Monocytes % (Manual) Seg Neutrophils # Seg Neutrophils # Man Lymphocytes # (Manual) Monocytes # (Manual) APTT Heparin Anti-Xa Level POC ABG pH POC ABG pCO2 POC ABG pO2 Sodium Potassium Chloride Carbon Dioxide BUN Creatinine Glucose POC Glucose 220 H 249 H 209 H Lactic Acid Calcium Phosphorus Total Bilirubin AST ALT Total Creatine Kinase CK-MB (CK-2) Troponin T Total Protein Albumin Prealbumin HDL Cholesterol Salicylates Acetaminophen Crossmatch 10/16/18 10/16/18 10/16/18 02:16 03:50 05:57 WBC RBC Hgb Hct MCV MCHC RDW Plt Count Lymph % (Auto) [place] % (Auto) [place] # Seg Neutrophils % Seg Neuts % (Manual) Lymphocytes % (Manual) Monocytes % (Manual) Seg Neutrophils # Seg Neutrophils # Man Lymphocytes # (Manual) Monocytes # (Manual) APTT Heparin Anti-Xa Level POC ABG pH POC ABG pCO2 55.8 H POC ABG pO2 Sodium Potassium Chloride Carbon Dioxide BUN Creatinine Glucose POC Glucose 110 H 209 H Lactic Acid Calcium Phosphorus Total Bilirubin AST ALT Total Creatine Kinase CK-MB (CK-2) Troponin T Total Protein Albumin Prealbumin HDL Cholesterol Salicylates Acetaminophen Crossmatch 10/16/18 10/16/18 10/16/18 10:51 12:51 15:01 WBC RBC Hgb Hct MCV MCHC RDW Plt Count Lymph % (Auto) [place] % (Auto) [place] # Seg Neutrophils % Seg Neuts % (Manual) Lymphocytes % (Manual) Monocytes % (Manual) Seg Neutrophils # Seg Neutrophils # Man Lymphocytes # (Manual) Monocytes # (Manual) APTT Heparin Anti-Xa Level POC ABG pH POC ABG pCO2 48.9 H POC ABG pO2 Sodium Potassium Chloride Carbon Dioxide BUN Creatinine Glucose POC Glucose 198 H 196 H Lactic Acid Calcium Phosphorus Total Bilirubin AST ALT Total Creatine Kinase CK-MB (CK-2) Troponin T Total Protein Albumin Prealbumin HDL Cholesterol Salicylates Acetaminophen Crossmatch 10/16/18 10/16/18 10/17/18 17:34 21:59 02:17 WBC RBC Hgb Hct MCV MCHC RDW Plt Count Lymph % (Auto) [place] % (Auto) [place] # Seg Neutrophils % Seg Neuts % (Manual) Lymphocytes % (Manual) Monocytes % (Manual) Seg Neutrophils # Seg Neutrophils # Man Lymphocytes # (Manual) Monocytes # (Manual) APTT Heparin Anti-Xa Level POC ABG pH POC ABG pCO2 POC ABG pO2 Sodium Potassium Chloride Carbon Dioxide BUN Creatinine Glucose POC Glucose 179 H 139 H 135 H Lactic Acid Calcium Phosphorus Total Bilirubin AST ALT Total Creatine Kinase CK-MB (CK-2) Troponin T Total Protein Albumin Prealbumin HDL Cholesterol Salicylates Acetaminophen Crossmatch 10/17/18 10/17/18 10/17/18 05:40 05:47 10:18 WBC RBC Hgb 11.3 L Hct 33.2 L MCV MCHC RDW Plt Count Lymph % (Auto) [place] % (Auto) [place] # Seg Neutrophils % Seg Neuts % (Manual) Lymphocytes % (Manual) Monocytes % (Manual) Seg Neutrophils # Seg Neutrophils # Man Lymphocytes # (Manual) Monocytes # (Manual) APTT Heparin Anti-Xa Level POC ABG pH POC ABG pCO2 POC ABG pO2 Sodium Potassium Chloride Carbon Dioxide BUN Creatinine Glucose POC Glucose 125 H 139 H Lactic Acid Calcium Phosphorus Total Bilirubin AST ALT Total Creatine Kinase CK-MB (CK-2) Troponin T Total Protein Albumin Prealbumin HDL Cholesterol Salicylates Acetaminophen Crossmatch 10/17/18 10/18/18 10/18/18 23:11 08:49 11:31 WBC RBC Hgb Hct MCV MCHC RDW Plt Count Lymph % (Auto) [place] % (Auto) [place] # Seg Neutrophils % Seg Neuts % (Manual) Lymphocytes % (Manual) Monocytes % (Manual) Seg Neutrophils # Seg Neutrophils # Man Lymphocytes # (Manual) Monocytes # (Manual) APTT Heparin Anti-Xa Level POC ABG pH POC ABG pCO2 POC ABG pO2 Sodium Potassium Chloride Carbon Dioxide BUN Creatinine Glucose POC Glucose 165 H 125 H 182 H Lactic Acid Calcium Phosphorus Total Bilirubin AST ALT Total Creatine Kinase CK-MB (CK-2) Troponin T Total Protein Albumin Prealbumin HDL Cholesterol Salicylates Acetaminophen Crossmatch 10/18/18 10/18/18 10/19/18 16:12 21:02 00:28 WBC RBC Hgb 11.4 L Hct 33.6 L MCV MCHC RDW Plt Count Lymph % (Auto) [place] % (Auto) 14.0 H [place] # 1.2 H Seg Neutrophils % Seg Neuts % (Manual) Lymphocytes % (Manual) Monocytes % (Manual) Seg Neutrophils # Seg Neutrophils # Man Lymphocytes # (Manual) Monocytes # (Manual) APTT Heparin Anti-Xa Level POC ABG pH POC ABG pCO2 POC ABG pO2 Sodium Potassium Chloride Carbon Dioxide BUN Creatinine Glucose POC Glucose 168 H 324 H Lactic Acid Calcium Phosphorus Total Bilirubin AST ALT Total Creatine Kinase CK-MB (CK-2) Troponin T Total Protein Albumin Prealbumin HDL Cholesterol Salicylates Acetaminophen Crossmatch 10/19/18 10/19/18 10/19/18 04:57 04:57 07:32 WBC RBC Hgb 11.7 L Hct 34.0 L MCV MCHC RDW Plt Count Lymph % (Auto) [place] % (Auto) [place] # Seg Neutrophils % Seg Neuts % (Manual) Lymphocytes % (Manual) Monocytes % (Manual) Seg Neutrophils # Seg Neutrophils # Man Lymphocytes # (Manual) Monocytes # (Manual) APTT Heparin Anti-Xa Level POC ABG pH POC ABG pCO2 POC ABG pO2 Sodium Potassium 3.5 L Chloride 108.6 H Carbon Dioxide BUN Creatinine 0.6 L Glucose POC Glucose 159 H Lactic Acid Calcium 7.9 L Phosphorus Total Bilirubin AST ALT Total Creatine Kinase CK-MB (CK-2) Troponin T Total Protein Albumin Prealbumin HDL Cholesterol Salicylates Acetaminophen Crossmatch 10/19/18 10/19/18 10/20/18 16:25 20:59 12:04 WBC RBC Hgb Hct MCV MCHC RDW Plt Count Lymph % (Auto) [place] % (Auto) [place] # Seg Neutrophils % Seg Neuts % (Manual) Lymphocytes % (Manual) Monocytes % (Manual) Seg Neutrophils # Seg Neutrophils # Man Lymphocytes # (Manual) Monocytes # (Manual) APTT Heparin Anti-Xa Level POC ABG pH POC ABG pCO2 POC ABG pO2 Sodium Potassium Chloride Carbon Dioxide BUN Creatinine Glucose POC Glucose 134 H 110 H 338 H Lactic Acid Calcium Phosphorus Total Bilirubin AST ALT Total Creatine Kinase CK-MB (CK-2) Troponin T Total Protein Albumin Prealbumin HDL Cholesterol Salicylates Acetaminophen Crossmatch 10/20/18 10/20/18 10/21/18 17:55 22:07 04:59 WBC RBC Hgb 11.6 L Hct 33.9 L MCV MCHC RDW Plt Count Lymph % (Auto) [place] % (Auto) 9.7 H [place] # 0.9 H Seg Neutrophils % 70.7 H Seg Neuts % (Manual) Lymphocytes % (Manual) Monocytes % (Manual) Seg Neutrophils # Seg Neutrophils # Man Lymphocytes # (Manual) Monocytes # (Manual) APTT Heparin Anti-Xa Level POC ABG pH POC ABG pCO2 POC ABG pO2 Sodium Potassium Chloride Carbon Dioxide BUN Creatinine Glucose POC Glucose 146 H 164 H Lactic Acid Calcium Phosphorus Total Bilirubin AST ALT Total Creatine Kinase CK-MB (CK-2) Troponin T Total Protein Albumin Prealbumin HDL Cholesterol Salicylates Acetaminophen Crossmatch 10/21/18 10/21/18 10/21/18 04:59 07:52 11:39 WBC RBC Hgb Hct MCV MCHC RDW Plt Count Lymph % (Auto) [place] % (Auto) [place] # Seg Neutrophils % Seg Neuts % (Manual) Lymphocytes % (Manual) Monocytes % (Manual) Seg Neutrophils # Seg Neutrophils # Man Lymphocytes # (Manual) Monocytes # (Manual) APTT Heparin Anti-Xa Level POC ABG pH POC ABG pCO2 POC ABG pO2 Sodium Potassium 3.5 L Chloride 107.1 H Carbon Dioxide BUN Creatinine 0.5 L Glucose 158 H POC Glucose 142 H 194 H Lactic Acid Calcium 7.5 L Phosphorus Total Bilirubin AST ALT Total Creatine Kinase CK-MB (CK-2) Troponin T Total Protein 5.6 L Albumin 2.0 L Prealbumin HDL Cholesterol Salicylates Acetaminophen Crossmatch 10/21/18 10/21/18 10/22/18 17:05 20:37 05:38 WBC RBC 3.48 L Hgb 10.8 L Hct 31.7 L MCV MCHC RDW Plt Count 458 H Lymph % (Auto) [place] % (Auto) 10.5 H [place] # Seg Neutrophils % Seg Neuts % (Manual) Lymphocytes % (Manual) Monocytes % (Manual) Seg Neutrophils # Seg Neutrophils # Man Lymphocytes # (Manual) Monocytes # (Manual) APTT Heparin Anti-Xa Level POC ABG pH POC ABG pCO2 POC ABG pO2 Sodium Potassium Chloride Carbon Dioxide BUN Creatinine Glucose POC Glucose 167 H 182 H Lactic Acid Calcium Phosphorus Total Bilirubin AST ALT Total Creatine Kinase CK-MB (CK-2) Troponin T Total Protein Albumin Prealbumin HDL Cholesterol Salicylates Acetaminophen Crossmatch 10/22/18 10/22/18 10/22/18 05:38 07:48 12:08 WBC RBC Hgb Hct MCV MCHC RDW Plt Count Lymph % (Auto) [place] % (Auto) [place] # Seg Neutrophils % Seg Neuts % (Manual) Lymphocytes % (Manual) Monocytes % (Manual) Seg Neutrophils # Seg Neutrophils # Man Lymphocytes # (Manual) Monocytes # (Manual) APTT Heparin Anti-Xa Level POC ABG pH POC ABG pCO2 POC ABG pO2 Sodium Potassium Chloride Carbon Dioxide BUN Creatinine 0.5 L Glucose 146 H POC Glucose 130 H 167 H Lactic Acid Calcium 7.8 L Phosphorus Total Bilirubin AST 41 H ALT Total Creatine Kinase CK-MB (CK-2) Troponin T Total Protein 5.5 L Albumin 2.1 L Prealbumin HDL Cholesterol Salicylates Acetaminophen Crossmatch 10/22/18 10/22/18 10/23/18 16:45 21:42 04:38 WBC RBC Hgb 11.7 L Hct 34.7 L MCV MCHC RDW Plt Count 523 H Lymph % (Auto) [place] % (Auto) 8.7 H [place] # Seg Neutrophils % 71.6 H Seg Neuts % (Manual) Lymphocytes % (Manual) Monocytes % (Manual) Seg Neutrophils # Seg Neutrophils # Man Lymphocytes # (Manual) Monocytes # (Manual) APTT Heparin Anti-Xa Level POC ABG pH POC ABG pCO2 POC ABG pO2 Sodium Potassium Chloride Carbon Dioxide BUN Creatinine Glucose POC Glucose 113 H 134 H Lactic Acid Calcium Phosphorus Total Bilirubin AST ALT Total Creatine Kinase CK-MB (CK-2) Troponin T Total Protein Albumin Prealbumin HDL Cholesterol Salicylates Acetaminophen Crossmatch 10/23/18 10/23/18 10/23/18 04:38 07:56 11:15 WBC RBC Hgb Hct MCV MCHC RDW Plt Count Lymph % (Auto) [place] % (Auto) [place] # Seg Neutrophils % Seg Neuts % (Manual) Lymphocytes % (Manual) Monocytes % (Manual) Seg Neutrophils # Seg Neutrophils # Man Lymphocytes # (Manual) Monocytes # (Manual) APTT Heparin Anti-Xa Level POC ABG pH POC ABG pCO2 POC ABG pO2 Sodium Potassium Chloride Carbon Dioxide BUN 7 L Creatinine 0.5 L Glucose 150 H POC Glucose 123 H 212 H Lactic Acid Calcium 8.0 L Phosphorus Total Bilirubin AST 55 H ALT Total Creatine Kinase CK-MB (CK-2) Troponin T Total Protein 6.2 L Albumin 2.3 L Prealbumin HDL Cholesterol Salicylates Acetaminophen Crossmatch 10/23/18 10/23/18 10/24/18 16:06 22:01 05:56 WBC 11.8 H RBC 3.64 L Hgb 11.2 L Hct 33.4 L MCV MCHC RDW Plt Count 564 H Lymph % (Auto) 11.3 L [place] % (Auto) [place] # Seg Neutrophils % 80.2 H Seg Neuts % (Manual) Lymphocytes % (Manual) Monocytes % (Manual) Seg Neutrophils # 9.4 H Seg Neutrophils # Man Lymphocytes # (Manual) Monocytes # (Manual) APTT Heparin Anti-Xa Level POC ABG pH POC ABG pCO2 POC ABG pO2 Sodium Potassium Chloride Carbon Dioxide BUN Creatinine Glucose POC Glucose 152 H 235 H Lactic Acid Calcium Phosphorus Total Bilirubin AST ALT Total Creatine Kinase CK-MB (CK-2) Troponin T Total Protein Albumin Prealbumin HDL Cholesterol Salicylates Acetaminophen Crossmatch 10/24/18 10/24/18 10/24/18 05:56 07:52 11:58 WBC RBC Hgb Hct MCV MCHC RDW Plt Count Lymph % (Auto) [place] % (Auto) [place] # Seg Neutrophils % Seg Neuts % (Manual) Lymphocytes % (Manual) Monocytes % (Manual) Seg Neutrophils # Seg Neutrophils # Man Lymphocytes # (Manual) Monocytes # (Manual) APTT Heparin Anti-Xa Level POC ABG pH POC ABG pCO2 POC ABG pO2 Sodium Potassium Chloride Carbon Dioxide BUN Creatinine 0.5 L Glucose 175 H POC Glucose 156 H 238 H Lactic Acid Calcium 8.0 L Phosphorus Total Bilirubin AST 44 H ALT Total Creatine Kinase CK-MB (CK-2) Troponin T Total Protein 6.2 L Albumin 2.4 L Prealbumin HDL Cholesterol Salicylates Acetaminophen Crossmatch 10/24/18 10/24/18 10/25/18 16:20 22:13 07:53 WBC RBC Hgb Hct MCV MCHC RDW Plt Count Lymph % (Auto) [place] % (Auto) [place] # Seg Neutrophils % Seg Neuts % (Manual) Lymphocytes % (Manual) Monocytes % (Manual) Seg Neutrophils # Seg Neutrophils # Man Lymphocytes # (Manual) Monocytes # (Manual) APTT Heparin Anti-Xa Level POC ABG pH POC ABG pCO2 POC ABG pO2 Sodium Potassium Chloride Carbon Dioxide BUN Creatinine Glucose POC Glucose 60 L 261 H 211 H Lactic Acid Calcium Phosphorus Total Bilirubin AST ALT Total Creatine Kinase CK-MB (CK-2) Troponin T Total Protein Albumin Prealbumin HDL Cholesterol Salicylates Acetaminophen Crossmatch 10/25/18 10/25/18 10/25/18 11:03 16:02 22:45 WBC RBC Hgb Hct MCV MCHC RDW Plt Count Lymph % (Auto) [place] % (Auto) [place] # Seg Neutrophils % Seg Neuts % (Manual) Lymphocytes % (Manual) Monocytes % (Manual) Seg Neutrophils # Seg Neutrophils # Man Lymphocytes # (Manual) Monocytes # (Manual) APTT Heparin Anti-Xa Level POC ABG pH POC ABG pCO2 POC ABG pO2 Sodium Potassium Chloride Carbon Dioxide BUN Creatinine Glucose POC Glucose 137 H 186 H 140 H Lactic Acid Calcium Phosphorus Total Bilirubin AST ALT Total Creatine Kinase CK-MB (CK-2) Troponin T Total Protein Albumin Prealbumin HDL Cholesterol Salicylates Acetaminophen Crossmatch 10/26/18 10/26/18 10/26/18 08:13 10:08 11:28 WBC RBC Hgb Hct MCV MCHC RDW Plt Count Lymph % (Auto) [place] % (Auto) [place] # Seg Neutrophils % Seg Neuts % (Manual) Lymphocytes % (Manual) Monocytes % (Manual) Seg Neutrophils # Seg Neutrophils # Man Lymphocytes # (Manual) Monocytes # (Manual) APTT Heparin Anti-Xa Level POC ABG pH POC ABG pCO2 POC ABG pO2 Sodium Potassium Chloride Carbon Dioxide BUN Creatinine Glucose POC Glucose 144 H 110 H 201 H Lactic Acid Calcium Phosphorus Total Bilirubin AST ALT Total Creatine Kinase CK-MB (CK-2) Troponin T Total Protein Albumin Prealbumin HDL Cholesterol Salicylates Acetaminophen Crossmatch 10/26/18 10/26/18 10/27/18 16:36 22:29 07:34 WBC RBC Hgb Hct MCV MCHC RDW Plt Count Lymph % (Auto) [place] % (Auto) [place] # Seg Neutrophils % Seg Neuts % (Manual) Lymphocytes % (Manual) Monocytes % (Manual) Seg Neutrophils # Seg Neutrophils # Man Lymphocytes # (Manual) Monocytes # (Manual) APTT Heparin Anti-Xa Level POC ABG pH POC ABG pCO2 POC ABG pO2 Sodium Potassium Chloride Carbon Dioxide BUN Creatinine Glucose POC Glucose 147 H 302 H 182 H Lactic Acid Calcium Phosphorus Total Bilirubin AST ALT Total Creatine Kinase CK-MB (CK-2) Troponin T Total Protein Albumin Prealbumin HDL Cholesterol Salicylates Acetaminophen Crossmatch 10/27/18 10/27/18 10/27/18 11:57 13:33 14:55 WBC RBC Hgb Hct MCV MCHC RDW Plt Count 550 H Lymph % (Auto) [place] % (Auto) [place] # Seg Neutrophils % Seg Neuts % (Manual) Lymphocytes % (Manual) Monocytes % (Manual) Seg Neutrophils # Seg Neutrophils # Man Lymphocytes # (Manual) Monocytes # (Manual) APTT Heparin Anti-Xa Level POC ABG pH POC ABG pCO2 POC ABG pO2 Sodium Potassium Chloride Carbon Dioxide BUN Creatinine Glucose POC Glucose 209 H Lactic Acid Calcium Phosphorus Total Bilirubin AST ALT Total Creatine Kinase CK-MB (CK-2) Troponin T Total Protein Albumin Prealbumin HDL Cholesterol Salicylates Acetaminophen Crossmatch See Detail 10/27/18 10/27/18 10/28/18 17:09 21:45 07:45 WBC RBC Hgb Hct MCV MCHC RDW Plt Count Lymph % (Auto) [place] % (Auto) [place] # Seg Neutrophils % Seg Neuts % (Manual) Lymphocytes % (Manual) Monocytes % (Manual) Seg Neutrophils # Seg Neutrophils # Man Lymphocytes # (Manual) Monocytes # (Manual) APTT Heparin Anti-Xa Level POC ABG pH POC ABG pCO2 POC ABG pO2 Sodium Potassium Chloride Carbon Dioxide BUN Creatinine Glucose POC Glucose 233 H 136 H 201 H Lactic Acid Calcium Phosphorus Total Bilirubin AST ALT Total Creatine Kinase CK-MB (CK-2) Troponin T Total Protein Albumin Prealbumin HDL Cholesterol Salicylates Acetaminophen Crossmatch 10/28/18 10/28/18 10/28/18 11:17 16:34 19:51 WBC RBC Hgb Hct MCV MCHC RDW Plt Count Lymph % (Auto) [place] % (Auto) [place] # Seg Neutrophils % Seg Neuts % (Manual) Lymphocytes % (Manual) Monocytes % (Manual) Seg Neutrophils # Seg Neutrophils # Man Lymphocytes # (Manual) Monocytes # (Manual) APTT Heparin Anti-Xa Level < 0.10 L POC ABG pH POC ABG pCO2 POC ABG pO2 Sodium Potassium Chloride Carbon Dioxide BUN Creatinine Glucose POC Glucose 116 H 168 H Lactic Acid Calcium Phosphorus Total Bilirubin AST ALT Total Creatine Kinase CK-MB (CK-2) Troponin T Total Protein Albumin Prealbumin HDL Cholesterol Salicylates Acetaminophen Crossmatch 10/28/18 10/29/18 10/29/18 21:52 07:11 07:11 WBC RBC Hgb Hct MCV MCHC RDW Plt Count 470 H Lymph % (Auto) [place] % (Auto) [place] # Seg Neutrophils % Seg Neuts % (Manual) Lymphocytes % (Manual) Monocytes % (Manual) Seg Neutrophils # Seg Neutrophils # Man Lymphocytes # (Manual) Monocytes # (Manual) APTT Heparin Anti-Xa Level 0.13 L POC ABG pH POC ABG pCO2 POC ABG pO2 Sodium Potassium Chloride Carbon Dioxide BUN Creatinine Glucose POC Glucose 159 H Lactic Acid Calcium Phosphorus Total Bilirubin AST ALT Total Creatine Kinase CK-MB (CK-2) Troponin T Total Protein Albumin Prealbumin HDL Cholesterol Salicylates Acetaminophen Crossmatch 10/29/18 10/29/18 10/29/18 07:11 07:43 11:29 WBC RBC Hgb Hct MCV MCHC RDW Plt Count Lymph % (Auto) [place] % (Auto) [place] # Seg Neutrophils % Seg Neuts % (Manual) Lymphocytes % (Manual) Monocytes % (Manual) Seg Neutrophils # Seg Neutrophils # Man Lymphocytes # (Manual) Monocytes # (Manual) APTT Heparin Anti-Xa Level POC ABG pH POC ABG pCO2 POC ABG pO2 Sodium Potassium Chloride Carbon Dioxide BUN 7 L Creatinine 0.5 L Glucose 122 H POC Glucose 147 H 165 H Lactic Acid Calcium 8.2 L Phosphorus Total Bilirubin AST ALT Total Creatine Kinase CK-MB (CK-2) Troponin T Total Protein Albumin Prealbumin HDL Cholesterol Salicylates Acetaminophen Crossmatch 10/29/18 10/29/18 10/30/18 19:50 22:11 00:11 WBC RBC Hgb Hct MCV MCHC RDW Plt Count Lymph % (Auto) [place] % (Auto) [place] # Seg Neutrophils % Seg Neuts % (Manual) Lymphocytes % (Manual) Monocytes % (Manual) Seg Neutrophils # Seg Neutrophils # Man Lymphocytes # (Manual) Monocytes # (Manual) APTT Heparin Anti-Xa Level 0.25 L POC ABG pH POC ABG pCO2 POC ABG pO2 Sodium Potassium Chloride Carbon Dioxide BUN Creatinine Glucose POC Glucose 166 H 173 H Lactic Acid Calcium Phosphorus Total Bilirubin AST ALT Total Creatine Kinase CK-MB (CK-2) Troponin T Total Protein Albumin Prealbumin HDL Cholesterol Salicylates Acetaminophen Crossmatch 10/30/18 10/30/18 10/30/18 04:22 04:22 07:47 WBC 27.0 H RBC 3.16 L Hgb 10.0 L Hct 28.8 L D MCV MCHC 35 H RDW Plt Count Lymph % (Auto) [place] % (Auto) [place] # Seg Neutrophils % Seg Neuts % (Manual) Lymphocytes % (Manual) 1.5 L Monocytes % (Manual) Seg Neutrophils # Seg Neutrophils # Man 18.6 H Lymphocytes # (Manual) 0.4 L Monocytes # (Manual) APTT Heparin Anti-Xa Level POC ABG pH POC ABG pCO2 POC ABG pO2 Sodium Potassium Chloride Carbon Dioxide BUN Creatinine Glucose 224 H POC Glucose 168 H Lactic Acid Calcium 7.5 L Phosphorus Total Bilirubin AST ALT Total Creatine Kinase CK-MB (CK-2) Troponin T Total Protein Albumin Prealbumin HDL Cholesterol Salicylates Acetaminophen Crossmatch 10/30/18 10/30/18 10/30/18 07:55 11:20 16:41 WBC RBC Hgb Hct MCV MCHC RDW Plt Count Lymph % (Auto) [place] % (Auto) [place] # Seg Neutrophils % Seg Neuts % (Manual) Lymphocytes % (Manual) Monocytes % (Manual) Seg Neutrophils # Seg Neutrophils # Man Lymphocytes # (Manual) Monocytes # (Manual) APTT Heparin Anti-Xa Level < 0.10 L POC ABG pH POC ABG pCO2 POC ABG pO2 Sodium Potassium Chloride Carbon Dioxide BUN Creatinine Glucose POC Glucose 165 H 142 H Lactic Acid Calcium Phosphorus Total Bilirubin AST ALT Total Creatine Kinase CK-MB (CK-2) Troponin T Total Protein Albumin Prealbumin HDL Cholesterol Salicylates Acetaminophen Crossmatch 10/30/18 10/30/18 10/31/18 20:51 21:20 05:21 WBC RBC Hgb 9.0 L Hct 26.6 L MCV MCHC RDW Plt Count Lymph % (Auto) [place] % (Auto) [place] # Seg Neutrophils % Seg Neuts % (Manual) Lymphocytes % (Manual) Monocytes % (Manual) Seg Neutrophils # Seg Neutrophils # Man Lymphocytes # (Manual) Monocytes # (Manual) APTT Heparin Anti-Xa Level < 0.10 L POC ABG pH POC ABG pCO2 POC ABG pO2 Sodium Potassium Chloride Carbon Dioxide BUN Creatinine Glucose POC Glucose 136 H Lactic Acid Calcium Phosphorus Total Bilirubin AST ALT Total Creatine Kinase CK-MB (CK-2) Troponin T Total Protein Albumin Prealbumin HDL Cholesterol Salicylates Acetaminophen Crossmatch 10/31/18 10/31/18 10/31/18 08:07 10:19 12:12 WBC RBC Hgb Hct MCV MCHC RDW Plt Count Lymph % (Auto) [place] % (Auto) [place] # Seg Neutrophils % Seg Neuts % (Manual) Lymphocytes % (Manual) Monocytes % (Manual) Seg Neutrophils # Seg Neutrophils # Man Lymphocytes # (Manual) Monocytes # (Manual) APTT Heparin Anti-Xa Level POC ABG pH POC ABG pCO2 POC ABG pO2 Sodium Potassium Chloride Carbon Dioxide BUN Creatinine Glucose POC Glucose 155 H 194 H Lactic Acid Calcium Phosphorus Total Bilirubin AST ALT Total Creatine Kinase CK-MB (CK-2) Troponin T Total Protein Albumin Prealbumin HDL Cholesterol Salicylates Acetaminophen Crossmatch See Detail 10/31/18 10/31/18 10/31/18 16:07 16:56 21:14 WBC RBC Hgb Hct MCV MCHC RDW Plt Count Lymph % (Auto) [place] % (Auto) [place] # Seg Neutrophils % Seg Neuts % (Manual) Lymphocytes % (Manual) Monocytes % (Manual) Seg Neutrophils # Seg Neutrophils # Man Lymphocytes # (Manual) Monocytes # (Manual) APTT Heparin Anti-Xa Level 1.20 H POC ABG pH POC ABG pCO2 POC ABG pO2 Sodium Potassium Chloride Carbon Dioxide BUN Creatinine Glucose POC Glucose 354 H 234 H Lactic Acid Calcium Phosphorus Total Bilirubin AST ALT Total Creatine Kinase CK-MB (CK-2) Troponin T Total Protein Albumin Prealbumin HDL Cholesterol Salicylates Acetaminophen Crossmatch 11/01/18 11/01/18 11/01/18 00:52 05:52 05:52 WBC 12.5 H RBC 2.95 L Hgb 9.1 L Hct 27.4 L MCV MCHC RDW 15.3 H Plt Count Lymph % (Auto) [place] % (Auto) [place] # Seg Neutrophils % Seg Neuts % (Manual) Lymphocytes % (Manual) Monocytes % (Manual) Seg Neutrophils # Seg Neutrophils # Man Lymphocytes # (Manual) Monocytes # (Manual) APTT Heparin Anti-Xa Level 1.53 H POC ABG pH POC ABG pCO2 POC ABG pO2 Sodium Potassium Chloride Carbon Dioxide BUN Creatinine 0.5 L Glucose 169 H POC Glucose Lactic Acid Calcium 8.3 L Phosphorus Total Bilirubin AST ALT Total Creatine Kinase CK-MB (CK-2) Troponin T Total Protein 6.2 L Albumin 2.3 L Prealbumin HDL Cholesterol Salicylates Acetaminophen Crossmatch 11/01/18 11/01/18 11/01/18 08:17 10:57 11:38 WBC RBC Hgb Hct MCV MCHC RDW Plt Count Lymph % (Auto) [place] % (Auto) [place] # Seg Neutrophils % Seg Neuts % (Manual) Lymphocytes % (Manual) Monocytes % (Manual) Seg Neutrophils # Seg Neutrophils # Man Lymphocytes # (Manual) Monocytes # (Manual) APTT Heparin Anti-Xa Level 1.05 H POC ABG pH POC ABG pCO2 POC ABG pO2 Sodium Potassium Chloride Carbon Dioxide BUN Creatinine Glucose POC Glucose 158 H 133 H Lactic Acid Calcium Phosphorus Total Bilirubin AST ALT Total Creatine Kinase CK-MB (CK-2) Troponin T Total Protein Albumin Prealbumin HDL Cholesterol Salicylates Acetaminophen Crossmatch 11/01/18 11/01/18 11/02/18 17:08 21:23 04:56 WBC RBC 3.02 L Hgb 9.5 L Hct 28.0 L MCV MCHC RDW Plt Count Lymph % (Auto) [place] % (Auto) [place] # Seg Neutrophils % Seg Neuts % (Manual) Lymphocytes % (Manual) Monocytes % (Manual) Seg Neutrophils # Seg Neutrophils # Man Lymphocytes # (Manual) Monocytes # (Manual) APTT Heparin Anti-Xa Level POC ABG pH POC ABG pCO2 POC ABG pO2 Sodium Potassium Chloride Carbon Dioxide BUN Creatinine Glucose POC Glucose 156 H 213 H Lactic Acid Calcium Phosphorus Total Bilirubin AST ALT Total Creatine Kinase CK-MB (CK-2) Troponin T Total Protein Albumin Prealbumin HDL Cholesterol Salicylates Acetaminophen Crossmatch 11/02/18 11/02/18 11/02/18 04:56 08:38 11:23 WBC RBC Hgb Hct MCV MCHC RDW Plt Count Lymph % (Auto) [place] % (Auto) [place] # Seg Neutrophils % Seg Neuts % (Manual) Lymphocytes % (Manual) Monocytes % (Manual) Seg Neutrophils # Seg Neutrophils # Man Lymphocytes # (Manual) Monocytes # (Manual) APTT Heparin Anti-Xa Level POC ABG pH POC ABG pCO2 POC ABG pO2 Sodium Potassium Chloride Carbon Dioxide BUN Creatinine 0.5 L Glucose 141 H POC Glucose 173 H 272 H Lactic Acid Calcium 8.2 L Phosphorus Total Bilirubin AST 43 H ALT Total Creatine Kinase CK-MB (CK-2) Troponin T Total Protein 6.1 L Albumin 2.2 L Prealbumin HDL Cholesterol Salicylates Acetaminophen Crossmatch 11/02/18 11/03/18 11/03/18 22:16 04:38 04:38 WBC 11.6 H RBC 3.20 L Hgb 9.8 L Hct 29.2 L MCV MCHC RDW Plt Count Lymph % (Auto) [place] % (Auto) [place] # Seg Neutrophils % Seg Neuts % (Manual) Lymphocytes % (Manual) Monocytes % (Manual) Seg Neutrophils # Seg Neutrophils # Man Lymphocytes # (Manual) Monocytes # (Manual) APTT Heparin Anti-Xa Level POC ABG pH POC ABG pCO2 POC ABG pO2 Sodium 135 L Potassium Chloride Carbon Dioxide BUN Creatinine 0.5 L Glucose 160 H POC Glucose 182 H Lactic Acid Calcium Phosphorus Total Bilirubin AST 46 H ALT Total Creatine Kinase CK-MB (CK-2) Troponin T Total Protein Albumin 2.3 L Prealbumin HDL Cholesterol Salicylates Acetaminophen Crossmatch 11/03/18 11/03/18 11/03/18 07:52 10:59 18:10 WBC RBC Hgb Hct MCV MCHC RDW Plt Count Lymph % (Auto) [place] % (Auto) [place] # Seg Neutrophils % Seg Neuts % (Manual) Lymphocytes % (Manual) Monocytes % (Manual) Seg Neutrophils # Seg Neutrophils # Man Lymphocytes # (Manual) Monocytes # (Manual) APTT Heparin Anti-Xa Level POC ABG pH POC ABG pCO2 POC ABG pO2 Sodium Potassium Chloride Carbon Dioxide BUN Creatinine Glucose POC Glucose 180 H 159 H 169 H Lactic Acid Calcium Phosphorus Total Bilirubin AST ALT Total Creatine Kinase CK-MB (CK-2) Troponin T Total Protein Albumin Prealbumin HDL Cholesterol Salicylates Acetaminophen Crossmatch 11/04/18 11/04/18 11/04/18 07:46 11:42 15:45 WBC 11.5 H RBC 3.41 L Hgb 10.4 L Hct 30.8 L MCV MCHC RDW Plt Count Lymph % (Auto) [place] % (Auto) [place] # Seg Neutrophils % Seg Neuts % (Manual) Lymphocytes % (Manual) Monocytes % (Manual) Seg Neutrophils # Seg Neutrophils # Man Lymphocytes # (Manual) Monocytes # (Manual) APTT Heparin Anti-Xa Level POC ABG pH POC ABG pCO2 POC ABG pO2 Sodium Potassium Chloride Carbon Dioxide BUN Creatinine Glucose POC Glucose 160 H 149 H Lactic Acid Calcium Phosphorus Total Bilirubin AST ALT Total Creatine Kinase CK-MB (CK-2) Troponin T Total Protein Albumin Prealbumin HDL Cholesterol Salicylates Acetaminophen Crossmatch 11/04/18 11/04/18 11/04/18 15:45 15:45 16:41 WBC RBC Hgb Hct MCV MCHC RDW Plt Count Lymph % (Auto) [place] % (Auto) [place] # Seg Neutrophils % Seg Neuts % (Manual) Lymphocytes % (Manual) Monocytes % (Manual) Seg Neutrophils # Seg Neutrophils # Man Lymphocytes # (Manual) Monocytes # (Manual) APTT Heparin Anti-Xa Level POC ABG pH POC ABG pCO2 POC ABG pO2 Sodium 133 L Potassium Chloride 95.6 L Carbon Dioxide BUN Creatinine 0.5 L Glucose 163 H POC Glucose 157 H Lactic Acid Calcium Phosphorus Total Bilirubin AST ALT Total Creatine Kinase CK-MB (CK-2) Troponin T Total Protein Albumin 2.6 L Prealbumin 0.073 L HDL Cholesterol Salicylates Acetaminophen Crossmatch 11/04/18 11/05/18 11/05/18 21:59 08:51 12:13 WBC RBC Hgb Hct MCV MCHC RDW Plt Count Lymph % (Auto) [place] % (Auto) [place] # Seg Neutrophils % Seg Neuts % (Manual) Lymphocytes % (Manual) Monocytes % (Manual) Seg Neutrophils # Seg Neutrophils # Man Lymphocytes # (Manual) Monocytes # (Manual) APTT Heparin Anti-Xa Level POC ABG pH POC ABG pCO2 POC ABG pO2 Sodium Potassium Chloride Carbon Dioxide BUN Creatinine Glucose POC Glucose 195 H 187 H 149 H Lactic Acid Calcium Phosphorus Total Bilirubin AST ALT Total Creatine Kinase CK-MB (CK-2) Troponin T Total Protein Albumin Prealbumin HDL Cholesterol Salicylates Acetaminophen Crossmatch 11/05/18 11/05/18 11/06/18 17:15 20:37 07:00 WBC RBC 3.48 L Hgb 11.2 L Hct 31.8 L MCV MCHC 35 H RDW Plt Count Lymph % (Auto) [place] % (Auto) [place] # Seg Neutrophils % Seg Neuts % (Manual) Lymphocytes % (Manual) Monocytes % (Manual) Seg Neutrophils # Seg Neutrophils # Man Lymphocytes # (Manual) Monocytes # (Manual) APTT Heparin Anti-Xa Level POC ABG pH POC ABG pCO2 POC ABG pO2 Sodium Potassium Chloride Carbon Dioxide BUN Creatinine Glucose POC Glucose 281 H 203 H Lactic Acid Calcium Phosphorus Total Bilirubin AST ALT Total Creatine Kinase CK-MB (CK-2) Troponin T Total Protein Albumin Prealbumin HDL Cholesterol Salicylates Acetaminophen Crossmatch 11/06/18 11/06/18 11/06/18 07:00 07:31 12:45 WBC RBC Hgb Hct MCV MCHC RDW Plt Count Lymph % (Auto) [place] % (Auto) [place] # Seg Neutrophils % Seg Neuts % (Manual) Lymphocytes % (Manual) Monocytes % (Manual) Seg Neutrophils # Seg Neutrophils # Man Lymphocytes # (Manual) Monocytes # (Manual) APTT Heparin Anti-Xa Level POC ABG pH POC ABG pCO2 POC ABG pO2 Sodium 135 L Potassium Chloride 97.3 L Carbon Dioxide BUN Creatinine 0.5 L Glucose 163 H POC Glucose 215 H 183 H Lactic Acid Calcium Phosphorus Total Bilirubin AST ALT Total Creatine Kinase CK-MB (CK-2) Troponin T Total Protein Albumin Prealbumin HDL Cholesterol Salicylates Acetaminophen Crossmatch 11/06/18 11/06/18 11/07/18 17:47 21:05 07:42 WBC RBC Hgb Hct MCV MCHC RDW Plt Count Lymph % (Auto) [place] % (Auto) [place] # Seg Neutrophils % Seg Neuts % (Manual) Lymphocytes % (Manual) Monocytes % (Manual) Seg Neutrophils # Seg Neutrophils # Man Lymphocytes # (Manual) Monocytes # (Manual) APTT Heparin Anti-Xa Level POC ABG pH POC ABG pCO2 POC ABG pO2 Sodium Potassium Chloride Carbon Dioxide BUN Creatinine Glucose POC Glucose 141 H 223 H 168 H Lactic Acid Calcium Phosphorus Total Bilirubin AST ALT Total Creatine Kinase CK-MB (CK-2) Troponin T Total Protein Albumin Prealbumin HDL Cholesterol Salicylates Acetaminophen Crossmatch 11/07/18 11/07/18 11/07/18 11:37 16:21 21:39 WBC RBC Hgb Hct MCV MCHC RDW Plt Count Lymph % (Auto) [place] % (Auto) [place] # Seg Neutrophils % Seg Neuts % (Manual) Lymphocytes % (Manual) Monocytes % (Manual) Seg Neutrophils # Seg Neutrophils # Man Lymphocytes # (Manual) Monocytes # (Manual) APTT Heparin Anti-Xa Level POC ABG pH POC ABG pCO2 POC ABG pO2 Sodium Potassium Chloride Carbon Dioxide BUN Creatinine Glucose POC Glucose 120 H 169 H 127 H Lactic Acid Calcium Phosphorus Total Bilirubin AST ALT Total Creatine Kinase CK-MB (CK-2) Troponin T Total Protein Albumin Prealbumin HDL Cholesterol Salicylates Acetaminophen Crossmatch 11/08/18 11/08/18 11/08/18 11:48 16:32 16:32 WBC 11.3 H RBC 3.40 L Hgb 10.3 L Hct 30.5 L MCV MCHC RDW Plt Count 465 H Lymph % (Auto) [place] % (Auto) 9.3 H [place] # 1.0 H Seg Neutrophils % 73.1 H Seg Neuts % (Manual) Lymphocytes % (Manual) Monocytes % (Manual) Seg Neutrophils # 8.3 H Seg Neutrophils # Man Lymphocytes # (Manual) Monocytes # (Manual) APTT Heparin Anti-Xa Level POC ABG pH POC ABG pCO2 POC ABG pO2 Sodium 133 L Potassium Chloride 96.7 L Carbon Dioxide BUN Creatinine 0.4 L Glucose 187 H POC Glucose 144 H Lactic Acid Calcium Phosphorus Total Bilirubin AST ALT Total Creatine Kinase CK-MB (CK-2) Troponin T Total Protein Albumin Prealbumin HDL Cholesterol Salicylates Acetaminophen Crossmatch 11/08/18 11/09/18 11/09/18 16:52 01:48 06:06 WBC 12.7 H RBC 3.47 L Hgb 10.5 L Hct 31.5 L MCV MCHC RDW Plt Count 452 H Lymph % (Auto) [place] % (Auto) 10.9 H [place] # 1.4 H Seg Neutrophils % Seg Neuts % (Manual) Lymphocytes % (Manual) Monocytes % (Manual) Seg Neutrophils # 8.9 H Seg Neutrophils # Man Lymphocytes # (Manual) Monocytes # (Manual) APTT Heparin Anti-Xa Level POC ABG pH POC ABG pCO2 POC ABG pO2 Sodium Potassium Chloride Carbon Dioxide BUN Creatinine Glucose POC Glucose 220 H 146 H Lactic Acid Calcium Phosphorus Total Bilirubin AST ALT Total Creatine Kinase CK-MB (CK-2) Troponin T Total Protein Albumin Prealbumin HDL Cholesterol Salicylates Acetaminophen Crossmatch 11/09/18 11/09/18 11/09/18 06:06 07:36 12:28 WBC RBC Hgb Hct MCV MCHC RDW Plt Count Lymph % (Auto) [place] % (Auto) [place] # Seg Neutrophils % Seg Neuts % (Manual) Lymphocytes % (Manual) Monocytes % (Manual) Seg Neutrophils # Seg Neutrophils # Man Lymphocytes # (Manual) Monocytes # (Manual) APTT Heparin Anti-Xa Level POC ABG pH POC ABG pCO2 POC ABG pO2 Sodium 129 L Potassium Chloride 94.5 L Carbon Dioxide BUN Creatinine 0.4 L Glucose 136 H POC Glucose 133 H 193 H Lactic Acid Calcium Phosphorus Total Bilirubin AST ALT Total Creatine Kinase CK-MB (CK-2) Troponin T Total Protein Albumin Prealbumin HDL Cholesterol Salicylates Acetaminophen Crossmatch Allied health notes reviewed: nursing
--- NOTE | 2018-11-09 16:53 | Progress Note ---
Assessment and Plan Acute hypoxemic respiratory failure, on mechanical ventilator support. Drug overdose. Acute chronic obstructive pulmonary disease exacerbation. Severe PVD Witnessed seizure en route. Acute kidney injury. Leukocytosis. Hypercapnia. Hyperkalemia. Metabolic acidosis. Lactic acidosis. Non-ST elevation myocardial infarction. Elevated serum transaminases. - may likely need ICU observation post-op on monday - continue aspiration precautions - continue full anticoagulation with Eliquis re: PVD (bridge anticoagulation per surgical team) - continue bronchodilators with pulmonary hygiene per RT - continue GI & VTE prophylaxis - prn supplemental oxygen to keep O2 sats 88-90% - follow clinically off AB's (rene-op AB's per surgical team) - Accuchecks with glycemic control. Target glucose of 140-180 mg/dL - Maintenance of sleep -wake cycle - Mobility as tolerated by hemodynamics - Influenza and pneumonia vaccination per protocol ..care plan discussed at length with RN/RT at the bedside Subjective Date of service: 11/09/18 Principal diagnosis: Ac hypercapnic hypoxemic Resp failure; Drug OD; AE-COPD; NINOSKA; Seizures Interval history: Patient is seen today for: Acute hypoxemic respiratory failure, on mechanical ventilator support; Drug overdose; Acute chronic obstructive pulmonary disease exacerbation; Witnessed seizure en route; Acute kidney injury; Leukocytosis; Hypercapnia. Seen and examined at bedside; 24-hour events reviewed; nursing and respiratory care staff consulted; no adverse overnight events reported to me; resting peacefully in bed; left lower extremity not viable and tentatively for surgical intervention on monday; denies acute chest pains or palpitations; No N/V/F/C Objective Vital Signs - 12hr 11/09/18 11/09/18 11/09/18 05:34 08:00 08:10 Temperature 97.5 F L Pulse Rate 66 Pulse Rate [ 69 75 Throughout] Respiratory 16 Rate Respiratory 18 18 Rate [ Throughout] Blood Pressure 103/58 O2 Sat by Pulse 92 Oximetry 11/09/18 11/09/18 10:00 11:47 Temperature 97.8 F Pulse Rate 72 Pulse Rate [ Throughout] Respiratory 18 Rate Respiratory Rate [ Throughout] Blood Pressure 107/68 O2 Sat by Pulse 94 93 Oximetry Constitutional: no acute distress, asleep, other (middle aged but chronically ill looking CM; Atraumatic) Eyes: non-icteric ENT: oropharynx moist, other (mallampati 2) Neck: supple, no lymphadenopathy, no JVD Effort: normal Ascultation: Bilateral: diminished breath sounds, rhonchi (scant) Percussion: Bilateral: not dull Cardiovascular: irregular rhythm, other (No R/M) Gastrointestinal: normoactive bowel sounds, soft, non-tender, non-distended Integumentary: other (s/p left BKA) Extremities: no edema, other (S/P Left BKA) Neurologic: normal mental status, pupils equal and round, other (Left hemiparesis, improving) Psychiatric: mood appropriate, affect normal CBC and BMP: 11/10/18 06:27 11/10/18 06:27 ABG, PT/INR, D-dimer: ABG POC ABG pH 7.393 (7.35-7.45) 10/16/18 12:51 POC ABG pCO2 48.9 (35-45) H 10/16/18 12:51 POC ABG pO2 92 (80-105) 10/16/18 12:51 POC ABG HCO3 29.8 (22-26 mml/L) 10/16/18 12:51 POC ABG Total CO2 31 (23-27mmol/L) 10/16/18 12:51 POC ABG O2 Sat 97 10/16/18 12:51 PT/INR, D-dimer PT 13.9 Sec. (12.2-14.9) 10/29/18 07:11 INR 1.01 (0.87-1.13) 10/29/18 07:11 Abnormal lab findings: Abnormal Labs 10/11/18 10/11/18 10/11/18 00:16 00:16 00:16 WBC 20.1 H RBC Hgb Hct MCV 98 H MCHC RDW 15.4 H Plt Count Lymph % (Auto) Wharton % (Auto) Wharton # Seg Neutrophils % Seg Neuts % (Manual) Lymphocytes % (Manual) 5.0 L Monocytes % (Manual) 25.0 H Seg Neutrophils # Seg Neutrophils # Man 9.2 H Lymphocytes # (Manual) 1.0 L Monocytes # (Manual) 5.0 H APTT Heparin Anti-Xa Level POC ABG pH POC ABG pCO2 POC ABG pO2 Sodium Potassium 5.8 H Chloride Carbon Dioxide 17 L BUN Creatinine 2.2 H Glucose 348 H POC Glucose Lactic Acid 13.70 H* Calcium 7.7 L Phosphorus Total Bilirubin 1.50 H AST 179 H ALT 110 H Total Creatine Kinase 324 H CK-MB (CK-2) Troponin T 0.257 H* Total Protein 5.9 L Albumin 2.9 L Prealbumin HDL Cholesterol 19 L Salicylates Acetaminophen Crossmatch 10/11/18 10/11/18 10/11/18 00:16 00:16 01:21 WBC RBC Hgb Hct MCV MCHC RDW Plt Count Lymph % (Auto) Wharton % (Auto) Wharton # Seg Neutrophils % Seg Neuts % (Manual) Lymphocytes % (Manual) Monocytes % (Manual) Seg Neutrophils # Seg Neutrophils # Man Lymphocytes # (Manual) Monocytes # (Manual) APTT Heparin Anti-Xa Level POC ABG pH 7.110 L POC ABG pCO2 50.3 H POC ABG pO2 65 L Sodium Potassium Chloride Carbon Dioxide BUN Creatinine Glucose POC Glucose Lactic Acid Calcium Phosphorus Total Bilirubin AST ALT Total Creatine Kinase CK-MB (CK-2) Troponin T Total Protein Albumin Prealbumin HDL Cholesterol Salicylates < 0.3 L Acetaminophen < 5.0 L Crossmatch 10/11/18 10/11/18 10/11/18 01:22 03:27 04:14 WBC RBC Hgb Hct MCV MCHC RDW Plt Count Lymph % (Auto) Wharton % (Auto) Wharton # Seg Neutrophils % Seg Neuts % (Manual) Lymphocytes % (Manual) Monocytes % (Manual) Seg Neutrophils # Seg Neutrophils # Man Lymphocytes # (Manual) Monocytes # (Manual) APTT Heparin Anti-Xa Level POC ABG pH POC ABG pCO2 POC ABG pO2 Sodium Potassium Chloride Carbon Dioxide BUN Creatinine Glucose POC Glucose Lactic Acid 8.50 H* 4.10 H* Calcium Phosphorus 4.90 H Total Bilirubin AST ALT Total Creatine Kinase CK-MB (CK-2) Troponin T Total Protein Albumin Prealbumin HDL Cholesterol Salicylates Acetaminophen Crossmatch 10/11/18 10/11/18 10/11/18 04:14 04:14 04:14 WBC RBC Hgb Hct MCV MCHC RDW Plt Count Lymph % (Auto) [place]arton % (Auto) Wharton # Seg Neutrophils % Seg Neuts % (Manual) Lymphocytes % (Manual) Monocytes % (Manual) Seg Neutrophils # Seg Neutrophils # Man Lymphocytes # (Manual) Monocytes # (Manual) APTT Heparin Anti-Xa Level POC ABG pH POC ABG pCO2 POC ABG pO2 Sodium Potassium 5.6 H Chloride Carbon Dioxide 19 L BUN Creatinine 1.6 H Glucose 329 H POC Glucose 328 H Lactic Acid Calcium 7.3 L Phosphorus Total Bilirubin AST ALT Total Creatine Kinase CK-MB (CK-2) Troponin T 1.130 H* D Total Protein Albumin Prealbumin HDL Cholesterol Salicylates Acetaminophen Crossmatch 10/11/18 10/11/18 10/11/18 05:10 05:32 05:58 WBC RBC Hgb Hct MCV MCHC RDW Plt Count Lymph % (Auto) [place]arton % (Auto) Wharton # Seg Neutrophils % Seg Neuts % (Manual) Lymphocytes % (Manual) Monocytes % (Manual) Seg Neutrophils # Seg Neutrophils # Man Lymphocytes # (Manual) Monocytes # (Manual) APTT Heparin Anti-Xa Level POC ABG pH 7.259 L POC ABG pCO2 45.6 H POC ABG pO2 Sodium Potassium Chloride 108.6 H Carbon Dioxide 20 L BUN Creatinine 1.8 H Glucose 269 H POC Glucose 273 H Lactic Acid Calcium 7.0 L Phosphorus Total Bilirubin AST ALT Total Creatine Kinase CK-MB (CK-2) Troponin T Total Protein Albumin Prealbumin HDL Cholesterol Salicylates Acetaminophen Crossmatch 10/11/18 10/11/18 10/11/18 05:58 06:39 07:00 WBC RBC Hgb Hct MCV MCHC RDW Plt Count Lymph % (Auto) [place]arton % (Auto) Wharton # Seg Neutrophils % Seg Neuts % (Manual) Lymphocytes % (Manual) Monocytes % (Manual) Seg Neutrophils # Seg Neutrophils # Man Lymphocytes # (Manual) Monocytes # (Manual) APTT Heparin Anti-Xa Level POC ABG pH POC ABG pCO2 POC ABG pO2 Sodium Potassium Chloride Carbon Dioxide BUN Creatinine Glucose POC Glucose 247 H Lactic Acid 3.20 H* 3.30 H* Calcium Phosphorus Total Bilirubin AST ALT Total Creatine Kinase CK-MB (CK-2) Troponin T Total Protein Albumin Prealbumin HDL Cholesterol Salicylates Acetaminophen Crossmatch 10/11/18 10/11/18 10/11/18 07:00 07:30 07:36 WBC RBC Hgb Hct MCV MCHC RDW Plt Count Lymph % (Auto) [place]arton % (Auto) Wharton # Seg Neutrophils % Seg Neuts % (Manual) Lymphocytes % (Manual) Monocytes % (Manual) Seg Neutrophils # Seg Neutrophils # Man Lymphocytes # (Manual) Monocytes # (Manual) APTT Heparin Anti-Xa Level POC ABG pH POC ABG pCO2 POC ABG pO2 Sodium 146 H Potassium Chloride 112.1 H Carbon Dioxide 21 L BUN Creatinine 1.6 H Glucose 218 H POC Glucose Lactic Acid 3.20 H* Calcium 7.0 L Phosphorus Total Bilirubin AST ALT Total Creatine Kinase CK-MB (CK-2) Troponin T 1.020 H* Total Protein Albumin Prealbumin HDL Cholesterol Salicylates Acetaminophen Crossmatch 10/11/18 10/11/18 10/11/18 07:43 08:29 08:29 WBC RBC Hgb 16.2 H Hct 49.9 H D MCV MCHC RDW Plt Count Lymph % (Auto) [place]arton % (Auto) Wharton # Seg Neutrophils % Seg Neuts % (Manual) Lymphocytes % (Manual) Monocytes % (Manual) Seg Neutrophils # Seg Neutrophils # Man Lymphocytes # (Manual) Monocytes # (Manual) APTT Heparin Anti-Xa Level POC ABG pH POC ABG pCO2 POC ABG pO2 Sodium Potassium Chloride Carbon Dioxide BUN Creatinine Glucose POC Glucose 174 H Lactic Acid 3.90 H* Calcium Phosphorus Total Bilirubin AST ALT Total Creatine Kinase CK-MB (CK-2) Troponin T Total Protein Albumin Prealbumin HDL Cholesterol Salicylates Acetaminophen Crossmatch 10/11/18 10/11/18 10/11/18 08:29 08:42 11:05 WBC RBC Hgb Hct MCV MCHC RDW Plt Count Lymph % (Auto) [place]arton % (Auto) Wharton # Seg Neutrophils % Seg Neuts % (Manual) Lymphocytes % (Manual) Monocytes % (Manual) Seg Neutrophils # Seg Neutrophils # Man Lymphocytes # (Manual) Monocytes # (Manual) APTT 24.1 L Heparin Anti-Xa Level POC ABG pH POC ABG pCO2 POC ABG pO2 Sodium 147 H Potassium Chloride 113.3 H Carbon Dioxide 21 L BUN Creatinine 1.7 H Glucose 119 H POC Glucose 164 H Lactic Acid Calcium 7.7 L Phosphorus Total Bilirubin AST ALT Total Creatine Kinase CK-MB (CK-2) Troponin T Total Protein Albumin Prealbumin HDL Cholesterol Salicylates Acetaminophen Crossmatch 10/11/18 10/11/18 10/11/18 11:05 11:06 12:30 WBC RBC Hgb Hct MCV MCHC RDW Plt Count Lymph % (Auto) [place]arton % (Auto) Wharton # Seg Neutrophils % Seg Neuts % (Manual) Lymphocytes % (Manual) Monocytes % (Manual) Seg Neutrophils # Seg Neutrophils # Man Lymphocytes # (Manual) Monocytes # (Manual) APTT Heparin Anti-Xa Level POC ABG pH POC ABG pCO2 POC ABG pO2 Sodium 148 H Potassium Chloride 113.4 H Carbon Dioxide 21 L BUN Creatinine 1.6 H Glucose 119 H POC Glucose 116 H Lactic Acid 3.20 H* Calcium 7.5 L Phosphorus Total Bilirubin AST ALT Total Creatine Kinase CK-MB (CK-2) Troponin T Total Protein Albumin Prealbumin HDL Cholesterol Salicylates Acetaminophen Crossmatch 10/11/18 10/11/18 10/11/18 12:30 13:16 13:25 WBC RBC Hgb Hct MCV MCHC RDW Plt Count Lymph % (Auto) [place]arton % (Auto) Wharton # Seg Neutrophils % Seg Neuts % (Manual) Lymphocytes % (Manual) Monocytes % (Manual) Seg Neutrophils # Seg Neutrophils # Man Lymphocytes # (Manual) Monocytes # (Manual) APTT Heparin Anti-Xa Level POC ABG pH 7.247 L POC ABG pCO2 48.4 H POC ABG pO2 Sodium Potassium Chloride Carbon Dioxide BUN Creatinine Glucose POC Glucose 112 H Lactic Acid 2.70 H* Calcium Phosphorus Total Bilirubin AST ALT Total Creatine Kinase CK-MB (CK-2) Troponin T Total Protein Albumin Prealbumin HDL Cholesterol Salicylates Acetaminophen Crossmatch 10/11/18 10/11/18 10/11/18 14:41 15:27 16:13 WBC RBC Hgb Hct MCV MCHC RDW Plt Count Lymph % (Auto) [place]arton % (Auto) Wharton # Seg Neutrophils % Seg Neuts % (Manual) Lymphocytes % (Manual) Monocytes % (Manual) Seg Neutrophils # Seg Neutrophils # Man Lymphocytes # (Manual) Monocytes # (Manual) APTT Heparin Anti-Xa Level POC ABG pH POC ABG pCO2 POC ABG pO2 Sodium Potassium Chloride Carbon Dioxide BUN Creatinine Glucose POC Glucose 127 H 141 H 134 H Lactic Acid Calcium Phosphorus Total Bilirubin AST ALT Total Creatine Kinase CK-MB (CK-2) Troponin T Total Protein Albumin Prealbumin HDL Cholesterol Salicylates Acetaminophen Crossmatch 10/11/18 10/11/18 10/11/18 17:18 18:23 19:38 WBC RBC Hgb Hct MCV MCHC RDW Plt Count Lymph % (Auto) [place]arton % (Auto) Wharton # Seg Neutrophils % Seg Neuts % (Manual) Lymphocytes % (Manual) Monocytes % (Manual) Seg Neutrophils # Seg Neutrophils # Man Lymphocytes # (Manual) Monocytes # (Manual) APTT Heparin Anti-Xa Level POC ABG pH POC ABG pCO2 POC ABG pO2 Sodium 148 H Potassium Chloride 112.7 H Carbon Dioxide BUN 23 H Creatinine Glucose 143 H POC Glucose 132 H 129 H Lactic Acid Calcium 7.9 L Phosphorus Total Bilirubin AST ALT Total Creatine Kinase CK-MB (CK-2) Troponin T Total Protein Albumin Prealbumin HDL Cholesterol Salicylates Acetaminophen Crossmatch 10/11/18 10/11/18 10/11/18 20:19 20:36 21:01 WBC RBC Hgb Hct MCV MCHC RDW Plt Count Lymph % (Auto) Wharton % (Auto) Wharton # Seg Neutrophils % Seg Neuts % (Manual) Lymphocytes % (Manual) Monocytes % (Manual) Seg Neutrophils # Seg Neutrophils # Man Lymphocytes # (Manual) Monocytes # (Manual) APTT Heparin Anti-Xa Level POC ABG pH 7.281 L POC ABG pCO2 POC ABG pO2 Sodium Potassium Chloride Carbon Dioxide BUN Creatinine Glucose POC Glucose 129 H 151 H Lactic Acid Calcium Phosphorus Total Bilirubin AST ALT Total Creatine Kinase CK-MB (CK-2) Troponin T Total Protein Albumin Prealbumin HDL Cholesterol Salicylates Acetaminophen Crossmatch 10/11/18 10/11/18 10/12/18 22:04 23:15 01:18 WBC RBC Hgb Hct MCV MCHC RDW Plt Count Lymph % (Auto) Wharton % (Auto) Wharton # Seg Neutrophils % Seg Neuts % (Manual) Lymphocytes % (Manual) Monocytes % (Manual) Seg Neutrophils # Seg Neutrophils # Man Lymphocytes # (Manual) Monocytes # (Manual) APTT Heparin Anti-Xa Level POC ABG pH POC ABG pCO2 POC ABG pO2 Sodium Potassium Chloride Carbon Dioxide BUN Creatinine Glucose POC Glucose 147 H 143 H 158 H Lactic Acid Calcium Phosphorus Total Bilirubin AST ALT Total Creatine Kinase CK-MB (CK-2) Troponin T Total Protein Albumin Prealbumin HDL Cholesterol Salicylates Acetaminophen Crossmatch 10/12/18 10/12/18 10/12/18 02:13 03:18 04:04 WBC RBC Hgb Hct MCV MCHC RDW Plt Count Lymph % (Auto) [place]arton % (Auto) Wharton # Seg Neutrophils % Seg Neuts % (Manual) Lymphocytes % (Manual) Monocytes % (Manual) Seg Neutrophils # Seg Neutrophils # Man Lymphocytes # (Manual) Monocytes # (Manual) APTT Heparin Anti-Xa Level POC ABG pH POC ABG pCO2 POC ABG pO2 Sodium 147 H Potassium Chloride 111.1 H Carbon Dioxide BUN 30 H Creatinine 2.0 H Glucose 154 H POC Glucose 148 H 142 H Lactic Acid Calcium 8.1 L Phosphorus Total Bilirubin AST 269 H ALT 204 H Total Creatine Kinase 3647 H CK-MB (CK-2) 48.3 H Troponin T 2.230 H* D Total Protein 5.8 L Albumin 2.6 L Prealbumin HDL Cholesterol Salicylates Acetaminophen Crossmatch 10/12/18 10/12/18 10/12/18 04:04 04:08 04:19 WBC 24.4 H RBC Hgb Hct MCV MCHC RDW Plt Count Lymph % (Auto) Wharton % (Auto) Wharton # Seg Neutrophils % Seg Neuts % (Manual) 32.0 L Lymphocytes % (Manual) Monocytes % (Manual) 8.0 H Seg Neutrophils # Seg Neutrophils # Man 7.8 H Lymphocytes # (Manual) Monocytes # (Manual) 2.0 H APTT Heparin Anti-Xa Level POC ABG pH 7.317 L POC ABG pCO2 49.3 H POC ABG pO2 Sodium Potassium Chloride Carbon Dioxide BUN Creatinine Glucose POC Glucose 143 H Lactic Acid Calcium Phosphorus Total Bilirubin AST ALT Total Creatine Kinase CK-MB (CK-2) Troponin T Total Protein Albumin Prealbumin HDL Cholesterol Salicylates Acetaminophen Crossmatch 10/12/18 10/12/18 10/12/18 05:29 06:52 08:09 WBC RBC Hgb Hct MCV MCHC RDW Plt Count Lymph % (Auto) Wharton % (Auto) Wharton # Seg Neutrophils % Seg Neuts % (Manual) Lymphocytes % (Manual) Monocytes % (Manual) Seg Neutrophils # Seg Neutrophils # Man Lymphocytes # (Manual) Monocytes # (Manual) APTT Heparin Anti-Xa Level POC ABG pH 7.322 L POC ABG pCO2 46.5 H POC ABG pO2 Sodium Potassium Chloride Carbon Dioxide BUN Creatinine Glucose POC Glucose 196 H 226 H Lactic Acid Calcium Phosphorus Total Bilirubin AST ALT Total Creatine Kinase CK-MB (CK-2) Troponin T Total Protein Albumin Prealbumin HDL Cholesterol Salicylates Acetaminophen Crossmatch 10/12/18 10/12/18 10/12/18 08:38 10:03 15:50 WBC RBC Hgb Hct MCV MCHC RDW Plt Count Lymph % (Auto) [place]arton % (Auto) Wharton # Seg Neutrophils % Seg Neuts % (Manual) Lymphocytes % (Manual) Monocytes % (Manual) Seg Neutrophils # Seg Neutrophils # Man Lymphocytes # (Manual) Monocytes # (Manual) APTT Heparin Anti-Xa Level POC ABG pH POC ABG pCO2 POC ABG pO2 Sodium Potassium Chloride Carbon Dioxide BUN Creatinine Glucose POC Glucose 138 H 148 H 221 H Lactic Acid Calcium Phosphorus Total Bilirubin AST ALT Total Creatine Kinase CK-MB (CK-2) Troponin T Total Protein Albumin Prealbumin HDL Cholesterol Salicylates Acetaminophen Crossmatch 10/12/18 10/12/18 10/12/18 18:39 20:56 21:34 WBC RBC Hgb Hct MCV MCHC RDW Plt Count Lymph % (Auto) [place]arton % (Auto) Wharton # Seg Neutrophils % Seg Neuts % (Manual) Lymphocytes % (Manual) Monocytes % (Manual) Seg Neutrophils # Seg Neutrophils # Man Lymphocytes # (Manual) Monocytes # (Manual) APTT Heparin Anti-Xa Level POC ABG pH 7.336 L POC ABG pCO2 46.0 H POC ABG pO2 Sodium Potassium Chloride Carbon Dioxide BUN Creatinine Glucose POC Glucose 255 H 260 H Lactic Acid Calcium Phosphorus Total Bilirubin AST ALT Total Creatine Kinase CK-MB (CK-2) Troponin T Total Protein Albumin Prealbumin HDL Cholesterol Salicylates Acetaminophen Crossmatch 10/13/18 10/13/18 10/13/18 02:29 05:09 05:40 WBC 17.0 H RBC Hgb Hct MCV MCHC RDW Plt Count Lymph % (Auto) [place]arton % (Auto) 9.2 H Wharton # 1.6 H Seg Neutrophils % 76.2 H Seg Neuts % (Manual) Lymphocytes % (Manual) Monocytes % (Manual) Seg Neutrophils # 12.9 H Seg Neutrophils # Man Lymphocytes # (Manual) Monocytes # (Manual) APTT Heparin Anti-Xa Level POC ABG pH POC ABG pCO2 POC ABG pO2 Sodium Potassium Chloride Carbon Dioxide BUN Creatinine Glucose POC Glucose 216 H 249 H Lactic Acid Calcium Phosphorus Total Bilirubin AST ALT Total Creatine Kinase CK-MB (CK-2) Troponin T Total Protein Albumin Prealbumin HDL Cholesterol Salicylates Acetaminophen Crossmatch 10/13/18 10/13/18 10/13/18 05:40 05:40 09:46 WBC RBC Hgb Hct MCV MCHC RDW Plt Count Lymph % (Auto) [place]arton % (Auto) Wharton # Seg Neutrophils % Seg Neuts % (Manual) Lymphocytes % (Manual) Monocytes % (Manual) Seg Neutrophils # Seg Neutrophils # Man Lymphocytes # (Manual) Monocytes # (Manual) APTT Heparin Anti-Xa Level POC ABG pH POC ABG pCO2 POC ABG pO2 Sodium 146 H Potassium Chloride 109.8 H Carbon Dioxide BUN 35 H Creatinine Glucose 245 H POC Glucose 235 H Lactic Acid Calcium 7.9 L Phosphorus Total Bilirubin AST ALT Total Creatine Kinase CK-MB (CK-2) Troponin T 0.952 H* D Total Protein Albumin Prealbumin HDL Cholesterol Salicylates Acetaminophen Crossmatch 10/13/18 10/13/18 10/13/18 13:58 16:15 17:30 WBC RBC Hgb Hct MCV MCHC RDW Plt Count Lymph % (Auto) [place]arton % (Auto) Wharton # Seg Neutrophils % Seg Neuts % (Manual) Lymphocytes % (Manual) Monocytes % (Manual) Seg Neutrophils # Seg Neutrophils # Man Lymphocytes # (Manual) Monocytes # (Manual) APTT Heparin Anti-Xa Level POC ABG pH POC ABG pCO2 51.2 H POC ABG pO2 Sodium Potassium Chloride Carbon Dioxide BUN Creatinine Glucose POC Glucose 139 H Lactic Acid Calcium Phosphorus Total Bilirubin AST ALT Total Creatine Kinase CK-MB (CK-2) Troponin T 0.816 H* Total Protein Albumin Prealbumin HDL Cholesterol Salicylates Acetaminophen Crossmatch 10/13/18 10/14/18 10/14/18 21:25 01:49 04:52 WBC RBC Hgb Hct MCV MCHC RDW Plt Count Lymph % (Auto) [place]arton % (Auto) [place]arton # Seg Neutrophils % Seg Neuts % (Manual) Lymphocytes % (Manual) Monocytes % (Manual) Seg Neutrophils # Seg Neutrophils # Man Lymphocytes # (Manual) Monocytes # (Manual) APTT Heparin Anti-Xa Level POC ABG pH POC ABG pCO2 56.0 H POC ABG pO2 Sodium Potassium Chloride Carbon Dioxide BUN Creatinine Glucose POC Glucose 205 H 166 H Lactic Acid Calcium Phosphorus Total Bilirubin AST ALT Total Creatine Kinase CK-MB (CK-2) Troponin T Total Protein Albumin Prealbumin HDL Cholesterol Salicylates Acetaminophen Crossmatch 10/14/18 10/14/18 10/14/18 05:32 09:45 09:45 WBC RBC Hgb 11.4 L Hct 34.5 L MCV MCHC RDW Plt Count 139 L Lymph % (Auto) Wharton % (Auto) Wharton # Seg Neutrophils % Seg Neuts % (Manual) Lymphocytes % (Manual) Monocytes % (Manual) Seg Neutrophils # Seg Neutrophils # Man Lymphocytes # (Manual) Monocytes # (Manual) APTT Heparin Anti-Xa Level POC ABG pH POC ABG pCO2 POC ABG pO2 Sodium 148 H Potassium Chloride 107.3 H Carbon Dioxide 34 H D BUN Creatinine 0.7 L D Glucose 191 H POC Glucose 164 H Lactic Acid Calcium 7.3 L Phosphorus Total Bilirubin AST 110 H ALT 91 H Total Creatine Kinase CK-MB (CK-2) Troponin T Total Protein 4.9 L Albumin 2.0 L Prealbumin HDL Cholesterol Salicylates Acetaminophen Crossmatch 10/14/18 10/14/18 10/14/18 10:54 12:20 18:30 WBC RBC Hgb Hct MCV MCHC RDW Plt Count Lymph % (Auto) [place]arton % (Auto) Wharton # Seg Neutrophils % Seg Neuts % (Manual) Lymphocytes % (Manual) Monocytes % (Manual) Seg Neutrophils # Seg Neutrophils # Man Lymphocytes # (Manual) Monocytes # (Manual) APTT Heparin Anti-Xa Level POC ABG pH POC ABG pCO2 POC ABG pO2 Sodium Potassium Chloride Carbon Dioxide BUN Creatinine Glucose POC Glucose 173 H 158 H 108 H Lactic Acid Calcium Phosphorus Total Bilirubin AST ALT Total Creatine Kinase CK-MB (CK-2) Troponin T Total Protein Albumin Prealbumin HDL Cholesterol Salicylates Acetaminophen Crossmatch 10/14/18 10/15/18 10/15/18 21:54 02:12 04:19 WBC RBC Hgb Hct MCV MCHC RDW Plt Count Lymph % (Auto) [place]arton % (Auto) [place]arton # Seg Neutrophils % Seg Neuts % (Manual) Lymphocytes % (Manual) Monocytes % (Manual) Seg Neutrophils # Seg Neutrophils # Man Lymphocytes # (Manual) Monocytes # (Manual) APTT Heparin Anti-Xa Level POC ABG pH 7.491 H POC ABG pCO2 45.1 H POC ABG pO2 Sodium Potassium Chloride Carbon Dioxide BUN Creatinine Glucose POC Glucose 110 H 164 H Lactic Acid Calcium Phosphorus Total Bilirubin AST ALT Total Creatine Kinase CK-MB (CK-2) Troponin T Total Protein Albumin Prealbumin HDL Cholesterol Salicylates Acetaminophen Crossmatch 10/15/18 10/15/18 10/15/18 04:55 05:43 06:20 WBC RBC Hgb 11.7 L Hct 34.7 L MCV MCHC RDW Plt Count Lymph % (Auto) [place]arton % (Auto) [place]arton # Seg Neutrophils % Seg Neuts % (Manual) Lymphocytes % (Manual) Monocytes % (Manual) Seg Neutrophils # Seg Neutrophils # Man Lymphocytes # (Manual) Monocytes # (Manual) APTT Heparin Anti-Xa Level POC ABG pH POC ABG pCO2 47.3 H POC ABG pO2 78 L Sodium Potassium Chloride Carbon Dioxide BUN Creatinine Glucose POC Glucose 250 H Lactic Acid Calcium Phosphorus Total Bilirubin AST ALT Total Creatine Kinase CK-MB (CK-2) Troponin T Total Protein Albumin Prealbumin HDL Cholesterol Salicylates Acetaminophen Crossmatch 10/15/18 10/15/18 10/15/18 12:00 12:00 12:11 WBC RBC Hgb 11.5 L Hct 34.0 L MCV MCHC RDW Plt Count Lymph % (Auto) [place]arton % (Auto) [place]arton # Seg Neutrophils % Seg Neuts % (Manual) Lymphocytes % (Manual) Monocytes % (Manual) Seg Neutrophils # Seg Neutrophils # Man Lymphocytes # (Manual) Monocytes # (Manual) APTT Heparin Anti-Xa Level POC ABG pH POC ABG pCO2 POC ABG pO2 Sodium 147 H Potassium Chloride 108.5 H Carbon Dioxide BUN Creatinine 0.7 L Glucose 209 H POC Glucose 197 H Lactic Acid Calcium 7.3 L Phosphorus Total Bilirubin AST ALT Total Creatine Kinase CK-MB (CK-2) Troponin T Total Protein Albumin Prealbumin HDL Cholesterol Salicylates Acetaminophen Crossmatch 10/15/18 10/15/18 10/15/18 15:48 18:34 21:29 WBC RBC Hgb Hct MCV MCHC RDW Plt Count Lymph % (Auto) [place]arton % (Auto) [place]arton # Seg Neutrophils % Seg Neuts % (Manual) Lymphocytes % (Manual) Monocytes % (Manual) Seg Neutrophils # Seg Neutrophils # Man Lymphocytes # (Manual) Monocytes # (Manual) APTT Heparin Anti-Xa Level POC ABG pH POC ABG pCO2 POC ABG pO2 Sodium Potassium Chloride Carbon Dioxide BUN Creatinine Glucose POC Glucose 220 H 249 H 209 H Lactic Acid Calcium Phosphorus Total Bilirubin AST ALT Total Creatine Kinase CK-MB (CK-2) Troponin T Total Protein Albumin Prealbumin HDL Cholesterol Salicylates Acetaminophen Crossmatch 10/16/18 10/16/18 10/16/18 02:16 03:50 05:57 WBC RBC Hgb Hct MCV MCHC RDW Plt Count Lymph % (Auto) [place]arton % (Auto) [place]arton # Seg Neutrophils % Seg Neuts % (Manual) Lymphocytes % (Manual) Monocytes % (Manual) Seg Neutrophils # Seg Neutrophils # Man Lymphocytes # (Manual) Monocytes # (Manual) APTT Heparin Anti-Xa Level POC ABG pH POC ABG pCO2 55.8 H POC ABG pO2 Sodium Potassium Chloride Carbon Dioxide BUN Creatinine Glucose POC Glucose 110 H 209 H Lactic Acid Calcium Phosphorus Total Bilirubin AST ALT Total Creatine Kinase CK-MB (CK-2) Troponin T Total Protein Albumin Prealbumin HDL Cholesterol Salicylates Acetaminophen Crossmatch 10/16/18 10/16/18 10/16/18 10:51 12:51 15:01 WBC RBC Hgb Hct MCV MCHC RDW Plt Count Lymph % (Auto) [place]arton % (Auto) [place]arton # Seg Neutrophils % Seg Neuts % (Manual) Lymphocytes % (Manual) Monocytes % (Manual) Seg Neutrophils # Seg Neutrophils # Man Lymphocytes # (Manual) Monocytes # (Manual) APTT Heparin Anti-Xa Level POC ABG pH POC ABG pCO2 48.9 H POC ABG pO2 Sodium Potassium Chloride Carbon Dioxide BUN Creatinine Glucose POC Glucose 198 H 196 H Lactic Acid Calcium Phosphorus Total Bilirubin AST ALT Total Creatine Kinase CK-MB (CK-2) Troponin T Total Protein Albumin Prealbumin HDL Cholesterol Salicylates Acetaminophen Crossmatch 10/16/18 10/16/18 10/17/18 17:34 21:59 02:17 WBC RBC Hgb Hct MCV MCHC RDW Plt Count Lymph % (Auto) [place] % (Auto) [place] # Seg Neutrophils % Seg Neuts % (Manual) Lymphocytes % (Manual) Monocytes % (Manual) Seg Neutrophils # Seg Neutrophils # Man Lymphocytes # (Manual) Monocytes # (Manual) APTT Heparin Anti-Xa Level POC ABG pH POC ABG pCO2 POC ABG pO2 Sodium Potassium Chloride Carbon Dioxide BUN Creatinine Glucose POC Glucose 179 H 139 H 135 H Lactic Acid Calcium Phosphorus Total Bilirubin AST ALT Total Creatine Kinase CK-MB (CK-2) Troponin T Total Protein Albumin Prealbumin HDL Cholesterol Salicylates Acetaminophen Crossmatch 10/17/18 10/17/18 10/17/18 05:40 05:47 10:18 WBC RBC Hgb 11.3 L Hct 33.2 L MCV MCHC RDW Plt Count Lymph % (Auto) [place] % (Auto) [place] # Seg Neutrophils % Seg Neuts % (Manual) Lymphocytes % (Manual) Monocytes % (Manual) Seg Neutrophils # Seg Neutrophils # Man Lymphocytes # (Manual) Monocytes # (Manual) APTT Heparin Anti-Xa Level POC ABG pH POC ABG pCO2 POC ABG pO2 Sodium Potassium Chloride Carbon Dioxide BUN Creatinine Glucose POC Glucose 125 H 139 H Lactic Acid Calcium Phosphorus Total Bilirubin AST ALT Total Creatine Kinase CK-MB (CK-2) Troponin T Total Protein Albumin Prealbumin HDL Cholesterol Salicylates Acetaminophen Crossmatch 10/17/18 10/18/18 10/18/18 23:11 08:49 11:31 WBC RBC Hgb Hct MCV MCHC RDW Plt Count Lymph % (Auto) [place] % (Auto) [place] # Seg Neutrophils % Seg Neuts % (Manual) Lymphocytes % (Manual) Monocytes % (Manual) Seg Neutrophils # Seg Neutrophils # Man Lymphocytes # (Manual) Monocytes # (Manual) APTT Heparin Anti-Xa Level POC ABG pH POC ABG pCO2 POC ABG pO2 Sodium Potassium Chloride Carbon Dioxide BUN Creatinine Glucose POC Glucose 165 H 125 H 182 H Lactic Acid Calcium Phosphorus Total Bilirubin AST ALT Total Creatine Kinase CK-MB (CK-2) Troponin T Total Protein Albumin Prealbumin HDL Cholesterol Salicylates Acetaminophen Crossmatch 10/18/18 10/18/18 10/19/18 16:12 21:02 00:28 WBC RBC Hgb 11.4 L Hct 33.6 L MCV MCHC RDW Plt Count Lymph % (Auto) [place] % (Auto) 14.0 H [place] # 1.2 H Seg Neutrophils % Seg Neuts % (Manual) Lymphocytes % (Manual) Monocytes % (Manual) Seg Neutrophils # Seg Neutrophils # Man Lymphocytes # (Manual) Monocytes # (Manual) APTT Heparin Anti-Xa Level POC ABG pH POC ABG pCO2 POC ABG pO2 Sodium Potassium Chloride Carbon Dioxide BUN Creatinine Glucose POC Glucose 168 H 324 H Lactic Acid Calcium Phosphorus Total Bilirubin AST ALT Total Creatine Kinase CK-MB (CK-2) Troponin T Total Protein Albumin Prealbumin HDL Cholesterol Salicylates Acetaminophen Crossmatch 10/19/18 10/19/18 10/19/18 04:57 04:57 07:32 WBC RBC Hgb 11.7 L Hct 34.0 L MCV MCHC RDW Plt Count Lymph % (Auto) [place] % (Auto) [place] # Seg Neutrophils % Seg Neuts % (Manual) Lymphocytes % (Manual) Monocytes % (Manual) Seg Neutrophils # Seg Neutrophils # Man Lymphocytes # (Manual) Monocytes # (Manual) APTT Heparin Anti-Xa Level POC ABG pH POC ABG pCO2 POC ABG pO2 Sodium Potassium 3.5 L Chloride 108.6 H Carbon Dioxide BUN Creatinine 0.6 L Glucose POC Glucose 159 H Lactic Acid Calcium 7.9 L Phosphorus Total Bilirubin AST ALT Total Creatine Kinase CK-MB (CK-2) Troponin T Total Protein Albumin Prealbumin HDL Cholesterol Salicylates Acetaminophen Crossmatch 10/19/18 10/19/18 10/20/18 16:25 20:59 12:04 WBC RBC Hgb Hct MCV MCHC RDW Plt Count Lymph % (Auto) [place] % (Auto) [place] # Seg Neutrophils % Seg Neuts % (Manual) Lymphocytes % (Manual) Monocytes % (Manual) Seg Neutrophils # Seg Neutrophils # Man Lymphocytes # (Manual) Monocytes # (Manual) APTT Heparin Anti-Xa Level POC ABG pH POC ABG pCO2 POC ABG pO2 Sodium Potassium Chloride Carbon Dioxide BUN Creatinine Glucose POC Glucose 134 H 110 H 338 H Lactic Acid Calcium Phosphorus Total Bilirubin AST ALT Total Creatine Kinase CK-MB (CK-2) Troponin T Total Protein Albumin Prealbumin HDL Cholesterol Salicylates Acetaminophen Crossmatch 10/20/18 10/20/18 10/21/18 17:55 22:07 04:59 WBC RBC Hgb 11.6 L Hct 33.9 L MCV MCHC RDW Plt Count Lymph % (Auto) [place] % (Auto) 9.7 H [place] # 0.9 H Seg Neutrophils % 70.7 H Seg Neuts % (Manual) Lymphocytes % (Manual) Monocytes % (Manual) Seg Neutrophils # Seg Neutrophils # Man Lymphocytes # (Manual) Monocytes # (Manual) APTT Heparin Anti-Xa Level POC ABG pH POC ABG pCO2 POC ABG pO2 Sodium Potassium Chloride Carbon Dioxide BUN Creatinine Glucose POC Glucose 146 H 164 H Lactic Acid Calcium Phosphorus Total Bilirubin AST ALT Total Creatine Kinase CK-MB (CK-2) Troponin T Total Protein Albumin Prealbumin HDL Cholesterol Salicylates Acetaminophen Crossmatch 10/21/18 10/21/18 10/21/18 04:59 07:52 11:39 WBC RBC Hgb Hct MCV MCHC RDW Plt Count Lymph % (Auto) [place] % (Auto) [place] # Seg Neutrophils % Seg Neuts % (Manual) Lymphocytes % (Manual) Monocytes % (Manual) Seg Neutrophils # Seg Neutrophils # Man Lymphocytes # (Manual) Monocytes # (Manual) APTT Heparin Anti-Xa Level POC ABG pH POC ABG pCO2 POC ABG pO2 Sodium Potassium 3.5 L Chloride 107.1 H Carbon Dioxide BUN Creatinine 0.5 L Glucose 158 H POC Glucose 142 H 194 H Lactic Acid Calcium 7.5 L Phosphorus Total Bilirubin AST ALT Total Creatine Kinase CK-MB (CK-2) Troponin T Total Protein 5.6 L Albumin 2.0 L Prealbumin HDL Cholesterol Salicylates Acetaminophen Crossmatch 10/21/18 10/21/18 10/22/18 17:05 20:37 05:38 WBC RBC 3.48 L Hgb 10.8 L Hct 31.7 L MCV MCHC RDW Plt Count 458 H Lymph % (Auto) [place] % (Auto) 10.5 H [place] # Seg Neutrophils % Seg Neuts % (Manual) Lymphocytes % (Manual) Monocytes % (Manual) Seg Neutrophils # Seg Neutrophils # Man Lymphocytes # (Manual) Monocytes # (Manual) APTT Heparin Anti-Xa Level POC ABG pH POC ABG pCO2 POC ABG pO2 Sodium Potassium Chloride Carbon Dioxide BUN Creatinine Glucose POC Glucose 167 H 182 H Lactic Acid Calcium Phosphorus Total Bilirubin AST ALT Total Creatine Kinase CK-MB (CK-2) Troponin T Total Protein Albumin Prealbumin HDL Cholesterol Salicylates Acetaminophen Crossmatch 10/22/18 10/22/18 10/22/18 05:38 07:48 12:08 WBC RBC Hgb Hct MCV MCHC RDW Plt Count Lymph % (Auto) [place] % (Auto) [place] # Seg Neutrophils % Seg Neuts % (Manual) Lymphocytes % (Manual) Monocytes % (Manual) Seg Neutrophils # Seg Neutrophils # Man Lymphocytes # (Manual) Monocytes # (Manual) APTT Heparin Anti-Xa Level POC ABG pH POC ABG pCO2 POC ABG pO2 Sodium Potassium Chloride Carbon Dioxide BUN Creatinine 0.5 L Glucose 146 H POC Glucose 130 H 167 H Lactic Acid Calcium 7.8 L Phosphorus Total Bilirubin AST 41 H ALT Total Creatine Kinase CK-MB (CK-2) Troponin T Total Protein 5.5 L Albumin 2.1 L Prealbumin HDL Cholesterol Salicylates Acetaminophen Crossmatch 10/22/18 10/22/18 10/23/18 16:45 21:42 04:38 WBC RBC Hgb 11.7 L Hct 34.7 L MCV MCHC RDW Plt Count 523 H Lymph % (Auto) [place] % (Auto) 8.7 H [place] # Seg Neutrophils % 71.6 H Seg Neuts % (Manual) Lymphocytes % (Manual) Monocytes % (Manual) Seg Neutrophils # Seg Neutrophils # Man Lymphocytes # (Manual) Monocytes # (Manual) APTT Heparin Anti-Xa Level POC ABG pH POC ABG pCO2 POC ABG pO2 Sodium Potassium Chloride Carbon Dioxide BUN Creatinine Glucose POC Glucose 113 H 134 H Lactic Acid Calcium Phosphorus Total Bilirubin AST ALT Total Creatine Kinase CK-MB (CK-2) Troponin T Total Protein Albumin Prealbumin HDL Cholesterol Salicylates Acetaminophen Crossmatch 10/23/18 10/23/18 10/23/18 04:38 07:56 11:15 WBC RBC Hgb Hct MCV MCHC RDW Plt Count Lymph % (Auto) [place] % (Auto) [place] # Seg Neutrophils % Seg Neuts % (Manual) Lymphocytes % (Manual) Monocytes % (Manual) Seg Neutrophils # Seg Neutrophils # Man Lymphocytes # (Manual) Monocytes # (Manual) APTT Heparin Anti-Xa Level POC ABG pH POC ABG pCO2 POC ABG pO2 Sodium Potassium Chloride Carbon Dioxide BUN 7 L Creatinine 0.5 L Glucose 150 H POC Glucose 123 H 212 H Lactic Acid Calcium 8.0 L Phosphorus Total Bilirubin AST 55 H ALT Total Creatine Kinase CK-MB (CK-2) Troponin T Total Protein 6.2 L Albumin 2.3 L Prealbumin HDL Cholesterol Salicylates Acetaminophen Crossmatch 10/23/18 10/23/18 10/24/18 16:06 22:01 05:56 WBC 11.8 H RBC 3.64 L Hgb 11.2 L Hct 33.4 L MCV MCHC RDW Plt Count 564 H Lymph % (Auto) 11.3 L [place] % (Auto) [place] # Seg Neutrophils % 80.2 H Seg Neuts % (Manual) Lymphocytes % (Manual) Monocytes % (Manual) Seg Neutrophils # 9.4 H Seg Neutrophils # Man Lymphocytes # (Manual) Monocytes # (Manual) APTT Heparin Anti-Xa Level POC ABG pH POC ABG pCO2 POC ABG pO2 Sodium Potassium Chloride Carbon Dioxide BUN Creatinine Glucose POC Glucose 152 H 235 H Lactic Acid Calcium Phosphorus Total Bilirubin AST ALT Total Creatine Kinase CK-MB (CK-2) Troponin T Total Protein Albumin Prealbumin HDL Cholesterol Salicylates Acetaminophen Crossmatch 10/24/18 10/24/18 10/24/18 05:56 07:52 11:58 WBC RBC Hgb Hct MCV MCHC RDW Plt Count Lymph % (Auto) [place] % (Auto) [place] # Seg Neutrophils % Seg Neuts % (Manual) Lymphocytes % (Manual) Monocytes % (Manual) Seg Neutrophils # Seg Neutrophils # Man Lymphocytes # (Manual) Monocytes # (Manual) APTT Heparin Anti-Xa Level POC ABG pH POC ABG pCO2 POC ABG pO2 Sodium Potassium Chloride Carbon Dioxide BUN Creatinine 0.5 L Glucose 175 H POC Glucose 156 H 238 H Lactic Acid Calcium 8.0 L Phosphorus Total Bilirubin AST 44 H ALT Total Creatine Kinase CK-MB (CK-2) Troponin T Total Protein 6.2 L Albumin 2.4 L Prealbumin HDL Cholesterol Salicylates Acetaminophen Crossmatch 10/24/18 10/24/18 10/25/18 16:20 22:13 07:53 WBC RBC Hgb Hct MCV MCHC RDW Plt Count Lymph % (Auto) [place] % (Auto) [place] # Seg Neutrophils % Seg Neuts % (Manual) Lymphocytes % (Manual) Monocytes % (Manual) Seg Neutrophils # Seg Neutrophils # Man Lymphocytes # (Manual) Monocytes # (Manual) APTT Heparin Anti-Xa Level POC ABG pH POC ABG pCO2 POC ABG pO2 Sodium Potassium Chloride Carbon Dioxide BUN Creatinine Glucose POC Glucose 60 L 261 H 211 H Lactic Acid Calcium Phosphorus Total Bilirubin AST ALT Total Creatine Kinase CK-MB (CK-2) Troponin T Total Protein Albumin Prealbumin HDL Cholesterol Salicylates Acetaminophen Crossmatch 10/25/18 10/25/18 10/25/18 11:03 16:02 22:45 WBC RBC Hgb Hct MCV MCHC RDW Plt Count Lymph % (Auto) [place] % (Auto) [place] # Seg Neutrophils % Seg Neuts % (Manual) Lymphocytes % (Manual) Monocytes % (Manual) Seg Neutrophils # Seg Neutrophils # Man Lymphocytes # (Manual) Monocytes # (Manual) APTT Heparin Anti-Xa Level POC ABG pH POC ABG pCO2 POC ABG pO2 Sodium Potassium Chloride Carbon Dioxide BUN Creatinine Glucose POC Glucose 137 H 186 H 140 H Lactic Acid Calcium Phosphorus Total Bilirubin AST ALT Total Creatine Kinase CK-MB (CK-2) Troponin T Total Protein Albumin Prealbumin HDL Cholesterol Salicylates Acetaminophen Crossmatch 10/26/18 10/26/18 10/26/18 08:13 10:08 11:28 WBC RBC Hgb Hct MCV MCHC RDW Plt Count Lymph % (Auto) [place] % (Auto) [place] # Seg Neutrophils % Seg Neuts % (Manual) Lymphocytes % (Manual) Monocytes % (Manual) Seg Neutrophils # Seg Neutrophils # Man Lymphocytes # (Manual) Monocytes # (Manual) APTT Heparin Anti-Xa Level POC ABG pH POC ABG pCO2 POC ABG pO2 Sodium Potassium Chloride Carbon Dioxide BUN Creatinine Glucose POC Glucose 144 H 110 H 201 H Lactic Acid Calcium Phosphorus Total Bilirubin AST ALT Total Creatine Kinase CK-MB (CK-2) Troponin T Total Protein Albumin Prealbumin HDL Cholesterol Salicylates Acetaminophen Crossmatch 10/26/18 10/26/18 10/27/18 16:36 22:29 07:34 WBC RBC Hgb Hct MCV MCHC RDW Plt Count Lymph % (Auto) [place] % (Auto) [place] # Seg Neutrophils % Seg Neuts % (Manual) Lymphocytes % (Manual) Monocytes % (Manual) Seg Neutrophils # Seg Neutrophils # Man Lymphocytes # (Manual) Monocytes # (Manual) APTT Heparin Anti-Xa Level POC ABG pH POC ABG pCO2 POC ABG pO2 Sodium Potassium Chloride Carbon Dioxide BUN Creatinine Glucose POC Glucose 147 H 302 H 182 H Lactic Acid Calcium Phosphorus Total Bilirubin AST ALT Total Creatine Kinase CK-MB (CK-2) Troponin T Total Protein Albumin Prealbumin HDL Cholesterol Salicylates Acetaminophen Crossmatch 10/27/18 10/27/18 10/27/18 11:57 13:33 14:55 WBC RBC Hgb Hct MCV MCHC RDW Plt Count 550 H Lymph % (Auto) [place] % (Auto) [place] # Seg Neutrophils % Seg Neuts % (Manual) Lymphocytes % (Manual) Monocytes % (Manual) Seg Neutrophils # Seg Neutrophils # Man Lymphocytes # (Manual) Monocytes # (Manual) APTT Heparin Anti-Xa Level POC ABG pH POC ABG pCO2 POC ABG pO2 Sodium Potassium Chloride Carbon Dioxide BUN Creatinine Glucose POC Glucose 209 H Lactic Acid Calcium Phosphorus Total Bilirubin AST ALT Total Creatine Kinase CK-MB (CK-2) Troponin T Total Protein Albumin Prealbumin HDL Cholesterol Salicylates Acetaminophen Crossmatch See Detail 10/27/18 10/27/18 10/28/18 17:09 21:45 07:45 WBC RBC Hgb Hct MCV MCHC RDW Plt Count Lymph % (Auto) [place] % (Auto) [place] # Seg Neutrophils % Seg Neuts % (Manual) Lymphocytes % (Manual) Monocytes % (Manual) Seg Neutrophils # Seg Neutrophils # Man Lymphocytes # (Manual) Monocytes # (Manual) APTT Heparin Anti-Xa Level POC ABG pH POC ABG pCO2 POC ABG pO2 Sodium Potassium Chloride Carbon Dioxide BUN Creatinine Glucose POC Glucose 233 H 136 H 201 H Lactic Acid Calcium Phosphorus Total Bilirubin AST ALT Total Creatine Kinase CK-MB (CK-2) Troponin T Total Protein Albumin Prealbumin HDL Cholesterol Salicylates Acetaminophen Crossmatch 10/28/18 10/28/18 10/28/18 11:17 16:34 19:51 WBC RBC Hgb Hct MCV MCHC RDW Plt Count Lymph % (Auto) [place] % (Auto) [place] # Seg Neutrophils % Seg Neuts % (Manual) Lymphocytes % (Manual) Monocytes % (Manual) Seg Neutrophils # Seg Neutrophils # Man Lymphocytes # (Manual) Monocytes # (Manual) APTT Heparin Anti-Xa Level < 0.10 L POC ABG pH POC ABG pCO2 POC ABG pO2 Sodium Potassium Chloride Carbon Dioxide BUN Creatinine Glucose POC Glucose 116 H 168 H Lactic Acid Calcium Phosphorus Total Bilirubin AST ALT Total Creatine Kinase CK-MB (CK-2) Troponin T Total Protein Albumin Prealbumin HDL Cholesterol Salicylates Acetaminophen Crossmatch 10/28/18 10/29/18 10/29/18 21:52 07:11 07:11 WBC RBC Hgb Hct MCV MCHC RDW Plt Count 470 H Lymph % (Auto) [place] % (Auto) [place] # Seg Neutrophils % Seg Neuts % (Manual) Lymphocytes % (Manual) Monocytes % (Manual) Seg Neutrophils # Seg Neutrophils # Man Lymphocytes # (Manual) Monocytes # (Manual) APTT Heparin Anti-Xa Level 0.13 L POC ABG pH POC ABG pCO2 POC ABG pO2 Sodium Potassium Chloride Carbon Dioxide BUN Creatinine Glucose POC Glucose 159 H Lactic Acid Calcium Phosphorus Total Bilirubin AST ALT Total Creatine Kinase CK-MB (CK-2) Troponin T Total Protein Albumin Prealbumin HDL Cholesterol Salicylates Acetaminophen Crossmatch 10/29/18 10/29/18 10/29/18 07:11 07:43 11:29 WBC RBC Hgb Hct MCV MCHC RDW Plt Count Lymph % (Auto) [place] % (Auto) [place] # Seg Neutrophils % Seg Neuts % (Manual) Lymphocytes % (Manual) Monocytes % (Manual) Seg Neutrophils # Seg Neutrophils # Man Lymphocytes # (Manual) Monocytes # (Manual) APTT Heparin Anti-Xa Level POC ABG pH POC ABG pCO2 POC ABG pO2 Sodium Potassium Chloride Carbon Dioxide BUN 7 L Creatinine 0.5 L Glucose 122 H POC Glucose 147 H 165 H Lactic Acid Calcium 8.2 L Phosphorus Total Bilirubin AST ALT Total Creatine Kinase CK-MB (CK-2) Troponin T Total Protein Albumin Prealbumin HDL Cholesterol Salicylates Acetaminophen Crossmatch 10/29/18 10/29/18 10/30/18 19:50 22:11 00:11 WBC RBC Hgb Hct MCV MCHC RDW Plt Count Lymph % (Auto) [place] % (Auto) [place] # Seg Neutrophils % Seg Neuts % (Manual) Lymphocytes % (Manual) Monocytes % (Manual) Seg Neutrophils # Seg Neutrophils # Man Lymphocytes # (Manual) Monocytes # (Manual) APTT Heparin Anti-Xa Level 0.25 L POC ABG pH POC ABG pCO2 POC ABG pO2 Sodium Potassium Chloride Carbon Dioxide BUN Creatinine Glucose POC Glucose 166 H 173 H Lactic Acid Calcium Phosphorus Total Bilirubin AST ALT Total Creatine Kinase CK-MB (CK-2) Troponin T Total Protein Albumin Prealbumin HDL Cholesterol Salicylates Acetaminophen Crossmatch 10/30/18 10/30/18 10/30/18 04:22 04:22 07:47 WBC 27.0 H RBC 3.16 L Hgb 10.0 L Hct 28.8 L D MCV MCHC 35 H RDW Plt Count Lymph % (Auto) [place] % (Auto) [place] # Seg Neutrophils % Seg Neuts % (Manual) Lymphocytes % (Manual) 1.5 L Monocytes % (Manual) Seg Neutrophils # Seg Neutrophils # Man 18.6 H Lymphocytes # (Manual) 0.4 L Monocytes # (Manual) APTT Heparin Anti-Xa Level POC ABG pH POC ABG pCO2 POC ABG pO2 Sodium Potassium Chloride Carbon Dioxide BUN Creatinine Glucose 224 H POC Glucose 168 H Lactic Acid Calcium 7.5 L Phosphorus Total Bilirubin AST ALT Total Creatine Kinase CK-MB (CK-2) Troponin T Total Protein Albumin Prealbumin HDL Cholesterol Salicylates Acetaminophen Crossmatch 10/30/18 10/30/18 10/30/18 07:55 11:20 16:41 WBC RBC Hgb Hct MCV MCHC RDW Plt Count Lymph % (Auto) [place] % (Auto) [place] # Seg Neutrophils % Seg Neuts % (Manual) Lymphocytes % (Manual) Monocytes % (Manual) Seg Neutrophils # Seg Neutrophils # Man Lymphocytes # (Manual) Monocytes # (Manual) APTT Heparin Anti-Xa Level < 0.10 L POC ABG pH POC ABG pCO2 POC ABG pO2 Sodium Potassium Chloride Carbon Dioxide BUN Creatinine Glucose POC Glucose 165 H 142 H Lactic Acid Calcium Phosphorus Total Bilirubin AST ALT Total Creatine Kinase CK-MB (CK-2) Troponin T Total Protein Albumin Prealbumin HDL Cholesterol Salicylates Acetaminophen Crossmatch 10/30/18 10/30/18 10/31/18 20:51 21:20 05:21 WBC RBC Hgb 9.0 L Hct 26.6 L MCV MCHC RDW Plt Count Lymph % (Auto) [place] % (Auto) [place] # Seg Neutrophils % Seg Neuts % (Manual) Lymphocytes % (Manual) Monocytes % (Manual) Seg Neutrophils # Seg Neutrophils # Man Lymphocytes # (Manual) Monocytes # (Manual) APTT Heparin Anti-Xa Level < 0.10 L POC ABG pH POC ABG pCO2 POC ABG pO2 Sodium Potassium Chloride Carbon Dioxide BUN Creatinine Glucose POC Glucose 136 H Lactic Acid Calcium Phosphorus Total Bilirubin AST ALT Total Creatine Kinase CK-MB (CK-2) Troponin T Total Protein Albumin Prealbumin HDL Cholesterol Salicylates Acetaminophen Crossmatch 10/31/18 10/31/18 10/31/18 08:07 10:19 12:12 WBC RBC Hgb Hct MCV MCHC RDW Plt Count Lymph % (Auto) [place] % (Auto) [place] # Seg Neutrophils % Seg Neuts % (Manual) Lymphocytes % (Manual) Monocytes % (Manual) Seg Neutrophils # Seg Neutrophils # Man Lymphocytes # (Manual) Monocytes # (Manual) APTT Heparin Anti-Xa Level POC ABG pH POC ABG pCO2 POC ABG pO2 Sodium Potassium Chloride Carbon Dioxide BUN Creatinine Glucose POC Glucose 155 H 194 H Lactic Acid Calcium Phosphorus Total Bilirubin AST ALT Total Creatine Kinase CK-MB (CK-2) Troponin T Total Protein Albumin Prealbumin HDL Cholesterol Salicylates Acetaminophen Crossmatch See Detail 10/31/18 10/31/18 10/31/18 16:07 16:56 21:14 WBC RBC Hgb Hct MCV MCHC RDW Plt Count Lymph % (Auto) [place] % (Auto) [place] # Seg Neutrophils % Seg Neuts % (Manual) Lymphocytes % (Manual) Monocytes % (Manual) Seg Neutrophils # Seg Neutrophils # Man Lymphocytes # (Manual) Monocytes # (Manual) APTT Heparin Anti-Xa Level 1.20 H POC ABG pH POC ABG pCO2 POC ABG pO2 Sodium Potassium Chloride Carbon Dioxide BUN Creatinine Glucose POC Glucose 354 H 234 H Lactic Acid Calcium Phosphorus Total Bilirubin AST ALT Total Creatine Kinase CK-MB (CK-2) Troponin T Total Protein Albumin Prealbumin HDL Cholesterol Salicylates Acetaminophen Crossmatch 11/01/18 11/01/18 11/01/18 00:52 05:52 05:52 WBC 12.5 H RBC 2.95 L Hgb 9.1 L Hct 27.4 L MCV MCHC RDW 15.3 H Plt Count Lymph % (Auto) [place] % (Auto) [place] # Seg Neutrophils % Seg Neuts % (Manual) Lymphocytes % (Manual) Monocytes % (Manual) Seg Neutrophils # Seg Neutrophils # Man Lymphocytes # (Manual) Monocytes # (Manual) APTT Heparin Anti-Xa Level 1.53 H POC ABG pH POC ABG pCO2 POC ABG pO2 Sodium Potassium Chloride Carbon Dioxide BUN Creatinine 0.5 L Glucose 169 H POC Glucose Lactic Acid Calcium 8.3 L Phosphorus Total Bilirubin AST ALT Total Creatine Kinase CK-MB (CK-2) Troponin T Total Protein 6.2 L Albumin 2.3 L Prealbumin HDL Cholesterol Salicylates Acetaminophen Crossmatch 11/01/18 11/01/18 11/01/18 08:17 10:57 11:38 WBC RBC Hgb Hct MCV MCHC RDW Plt Count Lymph % (Auto) [place] % (Auto) [place] # Seg Neutrophils % Seg Neuts % (Manual) Lymphocytes % (Manual) Monocytes % (Manual) Seg Neutrophils # Seg Neutrophils # Man Lymphocytes # (Manual) Monocytes # (Manual) APTT Heparin Anti-Xa Level 1.05 H POC ABG pH POC ABG pCO2 POC ABG pO2 Sodium Potassium Chloride Carbon Dioxide BUN Creatinine Glucose POC Glucose 158 H 133 H Lactic Acid Calcium Phosphorus Total Bilirubin AST ALT Total Creatine Kinase CK-MB (CK-2) Troponin T Total Protein Albumin Prealbumin HDL Cholesterol Salicylates Acetaminophen Crossmatch 11/01/18 11/01/18 11/02/18 17:08 21:23 04:56 WBC RBC 3.02 L Hgb 9.5 L Hct 28.0 L MCV MCHC RDW Plt Count Lymph % (Auto) [place] % (Auto) [place] # Seg Neutrophils % Seg Neuts % (Manual) Lymphocytes % (Manual) Monocytes % (Manual) Seg Neutrophils # Seg Neutrophils # Man Lymphocytes # (Manual) Monocytes # (Manual) APTT Heparin Anti-Xa Level POC ABG pH POC ABG pCO2 POC ABG pO2 Sodium Potassium Chloride Carbon Dioxide BUN Creatinine Glucose POC Glucose 156 H 213 H Lactic Acid Calcium Phosphorus Total Bilirubin AST ALT Total Creatine Kinase CK-MB (CK-2) Troponin T Total Protein Albumin Prealbumin HDL Cholesterol Salicylates Acetaminophen Crossmatch 11/02/18 11/02/18 11/02/18 04:56 08:38 11:23 WBC RBC Hgb Hct MCV MCHC RDW Plt Count Lymph % (Auto) [place] % (Auto) [place] # Seg Neutrophils % Seg Neuts % (Manual) Lymphocytes % (Manual) Monocytes % (Manual) Seg Neutrophils # Seg Neutrophils # Man Lymphocytes # (Manual) Monocytes # (Manual) APTT Heparin Anti-Xa Level POC ABG pH POC ABG pCO2 POC ABG pO2 Sodium Potassium Chloride Carbon Dioxide BUN Creatinine 0.5 L Glucose 141 H POC Glucose 173 H 272 H Lactic Acid Calcium 8.2 L Phosphorus Total Bilirubin AST 43 H ALT Total Creatine Kinase CK-MB (CK-2) Troponin T Total Protein 6.1 L Albumin 2.2 L Prealbumin HDL Cholesterol Salicylates Acetaminophen Crossmatch 11/02/18 11/03/18 11/03/18 22:16 04:38 04:38 WBC 11.6 H RBC 3.20 L Hgb 9.8 L Hct 29.2 L MCV MCHC RDW Plt Count Lymph % (Auto) [place] % (Auto) [place] # Seg Neutrophils % Seg Neuts % (Manual) Lymphocytes % (Manual) Monocytes % (Manual) Seg Neutrophils # Seg Neutrophils # Man Lymphocytes # (Manual) Monocytes # (Manual) APTT Heparin Anti-Xa Level POC ABG pH POC ABG pCO2 POC ABG pO2 Sodium 135 L Potassium Chloride Carbon Dioxide BUN Creatinine 0.5 L Glucose 160 H POC Glucose 182 H Lactic Acid Calcium Phosphorus Total Bilirubin AST 46 H ALT Total Creatine Kinase CK-MB (CK-2) Troponin T Total Protein Albumin 2.3 L Prealbumin HDL Cholesterol Salicylates Acetaminophen Crossmatch 11/03/18 11/03/18 11/03/18 07:52 10:59 18:10 WBC RBC Hgb Hct MCV MCHC RDW Plt Count Lymph % (Auto) [place] % (Auto) [place] # Seg Neutrophils % Seg Neuts % (Manual) Lymphocytes % (Manual) Monocytes % (Manual) Seg Neutrophils # Seg Neutrophils # Man Lymphocytes # (Manual) Monocytes # (Manual) APTT Heparin Anti-Xa Level POC ABG pH POC ABG pCO2 POC ABG pO2 Sodium Potassium Chloride Carbon Dioxide BUN Creatinine Glucose POC Glucose 180 H 159 H 169 H Lactic Acid Calcium Phosphorus Total Bilirubin AST ALT Total Creatine Kinase CK-MB (CK-2) Troponin T Total Protein Albumin Prealbumin HDL Cholesterol Salicylates Acetaminophen Crossmatch 11/04/18 11/04/18 11/04/18 07:46 11:42 15:45 WBC 11.5 H RBC 3.41 L Hgb 10.4 L Hct 30.8 L MCV MCHC RDW Plt Count Lymph % (Auto) [place] % (Auto) [place] # Seg Neutrophils % Seg Neuts % (Manual) Lymphocytes % (Manual) Monocytes % (Manual) Seg Neutrophils # Seg Neutrophils # Man Lymphocytes # (Manual) Monocytes # (Manual) APTT Heparin Anti-Xa Level POC ABG pH POC ABG pCO2 POC ABG pO2 Sodium Potassium Chloride Carbon Dioxide BUN Creatinine Glucose POC Glucose 160 H 149 H Lactic Acid Calcium Phosphorus Total Bilirubin AST ALT Total Creatine Kinase CK-MB (CK-2) Troponin T Total Protein Albumin Prealbumin HDL Cholesterol Salicylates Acetaminophen Crossmatch 11/04/18 11/04/18 11/04/18 15:45 15:45 16:41 WBC RBC Hgb Hct MCV MCHC RDW Plt Count Lymph % (Auto) [place] % (Auto) [place] # Seg Neutrophils % Seg Neuts % (Manual) Lymphocytes % (Manual) Monocytes % (Manual) Seg Neutrophils # Seg Neutrophils # Man Lymphocytes # (Manual) Monocytes # (Manual) APTT Heparin Anti-Xa Level POC ABG pH POC ABG pCO2 POC ABG pO2 Sodium 133 L Potassium Chloride 95.6 L Carbon Dioxide BUN Creatinine 0.5 L Glucose 163 H POC Glucose 157 H Lactic Acid Calcium Phosphorus Total Bilirubin AST ALT Total Creatine Kinase CK-MB (CK-2) Troponin T Total Protein Albumin 2.6 L Prealbumin 0.073 L HDL Cholesterol Salicylates Acetaminophen Crossmatch 11/04/18 11/05/18 11/05/18 21:59 08:51 12:13 WBC RBC Hgb Hct MCV MCHC RDW Plt Count Lymph % (Auto) [place] % (Auto) [place] # Seg Neutrophils % Seg Neuts % (Manual) Lymphocytes % (Manual) Monocytes % (Manual) Seg Neutrophils # Seg Neutrophils # Man Lymphocytes # (Manual) Monocytes # (Manual) APTT Heparin Anti-Xa Level POC ABG pH POC ABG pCO2 POC ABG pO2 Sodium Potassium Chloride Carbon Dioxide BUN Creatinine Glucose POC Glucose 195 H 187 H 149 H Lactic Acid Calcium Phosphorus Total Bilirubin AST ALT Total Creatine Kinase CK-MB (CK-2) Troponin T Total Protein Albumin Prealbumin HDL Cholesterol Salicylates Acetaminophen Crossmatch 11/05/18 11/05/18 11/06/18 17:15 20:37 07:00 WBC RBC 3.48 L Hgb 11.2 L Hct 31.8 L MCV MCHC 35 H RDW Plt Count Lymph % (Auto) [place] % (Auto) [place] # Seg Neutrophils % Seg Neuts % (Manual) Lymphocytes % (Manual) Monocytes % (Manual) Seg Neutrophils # Seg Neutrophils # Man Lymphocytes # (Manual) Monocytes # (Manual) APTT Heparin Anti-Xa Level POC ABG pH POC ABG pCO2 POC ABG pO2 Sodium Potassium Chloride Carbon Dioxide BUN Creatinine Glucose POC Glucose 281 H 203 H Lactic Acid Calcium Phosphorus Total Bilirubin AST ALT Total Creatine Kinase CK-MB (CK-2) Troponin T Total Protein Albumin Prealbumin HDL Cholesterol Salicylates Acetaminophen Crossmatch 11/06/18 11/06/18 11/06/18 07:00 07:31 12:45 WBC RBC Hgb Hct MCV MCHC RDW Plt Count Lymph % (Auto) [place] % (Auto) [place] # Seg Neutrophils % Seg Neuts % (Manual) Lymphocytes % (Manual) Monocytes % (Manual) Seg Neutrophils # Seg Neutrophils # Man Lymphocytes # (Manual) Monocytes # (Manual) APTT Heparin Anti-Xa Level POC ABG pH POC ABG pCO2 POC ABG pO2 Sodium 135 L Potassium Chloride 97.3 L Carbon Dioxide BUN Creatinine 0.5 L Glucose 163 H POC Glucose 215 H 183 H Lactic Acid Calcium Phosphorus Total Bilirubin AST ALT Total Creatine Kinase CK-MB (CK-2) Troponin T Total Protein Albumin Prealbumin HDL Cholesterol Salicylates Acetaminophen Crossmatch 11/06/18 11/06/18 11/07/18 17:47 21:05 07:42 WBC RBC Hgb Hct MCV MCHC RDW Plt Count Lymph % (Auto) [place] % (Auto) [place] # Seg Neutrophils % Seg Neuts % (Manual) Lymphocytes % (Manual) Monocytes % (Manual) Seg Neutrophils # Seg Neutrophils # Man Lymphocytes # (Manual) Monocytes # (Manual) APTT Heparin Anti-Xa Level POC ABG pH POC ABG pCO2 POC ABG pO2 Sodium Potassium Chloride Carbon Dioxide BUN Creatinine Glucose POC Glucose 141 H 223 H 168 H Lactic Acid Calcium Phosphorus Total Bilirubin AST ALT Total Creatine Kinase CK-MB (CK-2) Troponin T Total Protein Albumin Prealbumin HDL Cholesterol Salicylates Acetaminophen Crossmatch 11/07/18 11/07/18 11/07/18 11:37 16:21 21:39 WBC RBC Hgb Hct MCV MCHC RDW Plt Count Lymph % (Auto) [place] % (Auto) [place] # Seg Neutrophils % Seg Neuts % (Manual) Lymphocytes % (Manual) Monocytes % (Manual) Seg Neutrophils # Seg Neutrophils # Man Lymphocytes # (Manual) Monocytes # (Manual) APTT Heparin Anti-Xa Level POC ABG pH POC ABG pCO2 POC ABG pO2 Sodium Potassium Chloride Carbon Dioxide BUN Creatinine Glucose POC Glucose 120 H 169 H 127 H Lactic Acid Calcium Phosphorus Total Bilirubin AST ALT Total Creatine Kinase CK-MB (CK-2) Troponin T Total Protein Albumin Prealbumin HDL Cholesterol Salicylates Acetaminophen Crossmatch 11/08/18 11/08/18 11/08/18 11:48 16:32 16:32 WBC 11.3 H RBC 3.40 L Hgb 10.3 L Hct 30.5 L MCV MCHC RDW Plt Count 465 H Lymph % (Auto) [place] % (Auto) 9.3 H [place] # 1.0 H Seg Neutrophils % 73.1 H Seg Neuts % (Manual) Lymphocytes % (Manual) Monocytes % (Manual) Seg Neutrophils # 8.3 H Seg Neutrophils # Man Lymphocytes # (Manual) Monocytes # (Manual) APTT Heparin Anti-Xa Level POC ABG pH POC ABG pCO2 POC ABG pO2 Sodium 133 L Potassium Chloride 96.7 L Carbon Dioxide BUN Creatinine 0.4 L Glucose 187 H POC Glucose 144 H Lactic Acid Calcium Phosphorus Total Bilirubin AST ALT Total Creatine Kinase CK-MB (CK-2) Troponin T Total Protein Albumin Prealbumin HDL Cholesterol Salicylates Acetaminophen Crossmatch 11/08/18 11/09/18 11/09/18 16:52 01:48 06:06 WBC 12.7 H RBC 3.47 L Hgb 10.5 L Hct 31.5 L MCV MCHC RDW Plt Count 452 H Lymph % (Auto) [place] % (Auto) 10.9 H [place] # 1.4 H Seg Neutrophils % Seg Neuts % (Manual) Lymphocytes % (Manual) Monocytes % (Manual) Seg Neutrophils # 8.9 H Seg Neutrophils # Man Lymphocytes # (Manual) Monocytes # (Manual) APTT Heparin Anti-Xa Level POC ABG pH POC ABG pCO2 POC ABG pO2 Sodium Potassium Chloride Carbon Dioxide BUN Creatinine Glucose POC Glucose 220 H 146 H Lactic Acid Calcium Phosphorus Total Bilirubin AST ALT Total Creatine Kinase CK-MB (CK-2) Troponin T Total Protein Albumin Prealbumin HDL Cholesterol Salicylates Acetaminophen Crossmatch 11/09/18 11/09/18 11/09/18 06:06 07:36 12:28 WBC RBC Hgb Hct MCV MCHC RDW Plt Count Lymph % (Auto) [place] % (Auto) [place] # Seg Neutrophils % Seg Neuts % (Manual) Lymphocytes % (Manual) Monocytes % (Manual) Seg Neutrophils # Seg Neutrophils # Man Lymphocytes # (Manual) Monocytes # (Manual) APTT Heparin Anti-Xa Level POC ABG pH POC ABG pCO2 POC ABG pO2 Sodium 129 L Potassium Chloride 94.5 L Carbon Dioxide BUN Creatinine 0.4 L Glucose 136 H POC Glucose 133 H 193 H Lactic Acid Calcium Phosphorus Total Bilirubin AST ALT Total Creatine Kinase CK-MB (CK-2) Troponin T Total Protein Albumin Prealbumin HDL Cholesterol Salicylates Acetaminophen Crossmatch Allied health notes reviewed: nursing
[2018-11-10] MEDS: PERCOCET 5/325 PO PRN ×2 (04:53→20:19)
[2018-11-10 07:24] LABS: Basophils # (Auto) 0.1 K/mm3 (0.0-0.1); Basophils % (Auto) 0.8 % (0.0-1.8); Eosinophils # (Auto) 0.1 K/mm3 (0.0-0.4); Eosinophils % (Auto) 1.3 % (0.0-4.3); Hematocrit 31.2 % (35.5-45.6); Hemoglobin 10.7 gm/dl (11.8-15.2); Lymphocytes # (Auto) 1.7 K/mm3 (1.2-5.4); Lymphocytes % (Auto) 16.3 % (13.4-35.0); Mean Corpuscular HGB Conc 34 % (32-34); Mean Corpuscular Volume 89 fl (84-94); Monocytes # (Auto) 1.2 K/mm3 (0.0-0.8); Monocytes % (Auto) 11.8 % (0.0-7.3); Platelet Count 496 K/mm3 (140-440); Red Cell Distribution Width 14.1 % (13.2-15.2)
[2018-11-10 07:33] LABS: BUN/Creatinine Ratio 28; Blood Urea Nitrogen 11 mg/dL (9-20); Calcium 8.7 mg/dL (8.4-10.2); Hemolysis Index 2
[2018-11-10] MEDS: HumuLIN R SUB-Q SCH ×4 (08:57→22:27)
--- NOTE | 2018-11-10 09:33 | Progress Note ---
Assessment and Plan Plan for left AKA on Monday Subjective Date of service: 11/10/18 Principal diagnosis: Ac hypercapnic hypoxemic Resp failure; Drug OD; AE-COPD; NINOSKA; Seizures Interval history: Patient with complex medical history with ischemic changes of bilateral lower extremity status post left BKA and right revascularized. The patient's BKA stump is becoming increasingly devascularized with an area of eschar on the lateral aspect of the stump, increased drainage and surrounding erythema and increased pain. Objective - Constitutional Vitals: Vital Signs - 12hr 11/10/18 11/10/18 11/10/18 00:12 00:14 05:55 Temperature 97.5 F L Pulse Rate 83 83 Respiratory 20 20 20 Rate Blood Pressure 98/60 121/71 Blood Pressure 98/60 [Right] O2 Sat by Pulse 94 94 Oximetry 11/10/18 05:57 Temperature 97.5 F L Pulse Rate 71 Respiratory 20 Rate Blood Pressure Blood Pressure 121/71 [Right] O2 Sat by Pulse 95 Oximetry General appearance: Present: no acute distress - EENT Eyes: EOM intact ENT: hearing intact - Neck Neck: supple, normal ROM - Respiratory Respiratory effort: normal - Breasts Breasts: deferred Extremities: abnormal - Gastrointestinal General gastrointestinal: Present: deferred Rectal Exam: deferred - Genitourinary Male genitourinary: deferred - Psychiatric Psychiatric: cooperative - Labs CBC & Chem 7: 11/10/18 06:27 11/10/18 06:27 Labs: Abnormal lab results 11/09/18 11/09/18 11/10/18 Range/Units 12:28 21:14 06:27 RBC 3.50 L (3.65-5.03) M/mm3 Hgb 10.7 L (11.8-15.2) gm/dl Hct 31.2 L (35.5-45.6) % Plt Count 496 H (140-440) K/mm3 [place] % (Auto) 11.8 H (0.0-7.3) % [place] # 1.2 H (0.0-0.8) K/mm3 Sodium (137-145) mmol/L Chloride (98-107) mmol/L Creatinine (0.8-1.5) mg/dL Glucose (75-100) mg/dL POC Glucose 193 H 125 H (70-105) 11/10/18 11/10/18 Range/Units 06:27 09:01 RBC (3.65-5.03) M/mm3 Hgb (11.8-15.2) gm/dl Hct (35.5-45.6) % Plt Count (140-440) K/mm3 [place] % (Auto) (0.0-7.3) % [place] # (0.0-0.8) K/mm3 Sodium 135 L (137-145) mmol/L Chloride 97.2 L (98-107) mmol/L Creatinine 0.4 L (0.8-1.5) mg/dL Glucose 137 H (75-100) mg/dL POC Glucose 145 H (70-105) Medications & Allergies - Medications Allergies/Adverse Reactions: Allergies No Known Allergies Allergy (Verified 10/31/14 11:20) Home Medications: Home Medications Medication Instructions Recorded Confirmed Last Taken Type Gabapentin [Neurontin] 90 mg PO Q8HR 04/22/15 11/01/18 04/21/15 History ALPRAZolam [Xanax TAB] 1 mg PO TID PRN #30 tablet 03/28/16 11/01/18 Unknown Rx Albuterol Sulfate [Ventolin HFA] 2 puff IH Q4H PRN #1 hfa.aer.ad 03/28/16 11/01/18 Unknown Rx Ciprofloxacin HCl [Ciprofloxacin 500 mg PO Q12HR #30 tab 03/28/16 11/01/18 Unknown Rx TAB] Citalopram [celeXA] 10 mg PO QDAY #30 tablet 03/28/16 11/01/18 Unknown Rx Nicotine [Habitrol] 14 mg TD QDAY #30 patch 03/28/16 11/01/18 Unknown Rx Sitagliptin Phos/Metformin HCl 1 tab PO QDAY #30 tbmp.24hr 03/28/16 11/01/18 Unknown Rx [Janumet XR 100-1,000 mg] oxyCODONE /ACETAMINOPHEN [Percocet 1 tab PO Q6H PRN #60 tablet 03/28/16 11/01/18 Unknown Rx 5/325 mg] Active Medications: Generic Name Dose Route Start Last Admin Trade Name Freq PRN Reason Stop Dose Admin Acetaminophen 650 mg 10/11/18 04:04 10/21/18 22:21 Tylenol PO 650 mg Q4H PRN Administration Pain MILD(1-3)/Fever >100.5/HOLLINS Albuterol 2.5 mg 10/19/18 00:54 Proventil IH Q4HRT PRN Shortness Of Breath Albuterol/Ipratropium 1 ampul 10/19/18 08:00 11/09/18 21:02 Duoneb *Not For Prn Use* IH 1 ampul TIDRT ISAAC Administration Alprazolam 1 mg 10/20/18 13:06 11/07/18 13:43 Xanax PO 1 mg TID PRN Administration Anxiety Apixaban 5 mg 11/08/18 22:00 11/09/18 23:00 Eliquis PO 5 mg Q12HR ISAAC Administration Protocol Aspirin 81 mg 11/01/18 16:00 11/09/18 10:06 Halfprin Ec PO 81 mg QDAY ISAAC Administration Buprenorphine HCl 2 each 11/05/18 10:00 11/09/18 10:00 Suboxone 2 Mg-0.5 Mg SL 2 each QDAY ISAAC Administration Citalopram Hydrobromide 20 mg 11/05/18 10:00 11/09/18 10:06 Celexa PO 20 mg QDAY ISAAC Administration Dextrose 0 ml 10/11/18 03:57 10/11/18 10:18 D50w (25gm) Syringe IV 10 ml PRN PRN Administration Hypoglycemia Docusate Sodium 100 mg 11/04/18 22:00 11/09/18 23:01 Colace PO 100 mg BID ISAAC Administration Famotidine 20 mg 10/15/18 10:00 11/09/18 23:01 Pepcid PO 20 mg BID ISAAC Administration Insulin Human Regular 0 units 10/17/18 11:30 11/10/18 08:57 Humulin R SUB-Q Not Given [facility] Protocol Metoprolol Tartrate 25 mg 10/18/18 22:00 11/09/18 23:01 Lopressor PO Not Given BID ISAAC Metoprolol Tartrate 2.5 mg 10/18/18 18:51 10/18/18 22:19 Lopressor IV 2.5 mg Q6H PRN Administration Tachyarrhythmias Naloxone HCl 0.1 mg 10/29/18 16:03 Narcan 0.4 Mg/1 Ml IV Q2MIN PRN Res Rate </= 8 or 02 SAT < 92% Ondansetron HCl 4 mg 05/02/19 04:04 11/01/18 22:12 Zofran IV 4 mg Q8H PRN Administration Nausea And Vomiting Oxycodone/Acetaminophen 1 tab 10/18/18 13:45 11/10/18 04:53 Percocet 5/325 PO 1 tab Q6H PRN Administration Pain, Moderate (4-6)
[2018-11-10] MEDS: DUONEB *Not for PRN Use IH SCH ×3 (09:48→19:50)
--- NOTE | 2018-11-10 10:23 | Progress Note ---
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 followed by revascularization right leg on 10/31/18. Vascular surgery feels the patient will need evaluation of his devascularized skin along the lateral aspect of his left stump. Left below-knee amputation stump site is looking marginal. It does not appear to be salvageable and will require above-knee amputation conversion on Monday. -Acute/subacute right CVA, Initial CT head, no acute finding, 10/13/18 found to have left-sided weakness, MRI brain showed numerous acute/subacute multilobar infarcts involving the cerebrum and cerebellum including Hemorrhagic transformation of the right frontal and biparietal lobes, was Not a candidate for tPA, monitor off aspirin per teleneurology, QUIQUE ; no thrombus or shunt, -Severe sepsis with shock; resolved. Probably due to LLL aspiration pneumonia, completed total 7 days of antibiotics, off vasopressors -Paroxysmal atrial fibrillation. on Eliquis Cardiology is following -LLL pneumonia: completed treatment -Acute respiratory failure with hypoxia and hypercapnia: Requiring intubation, s/p extubation, treat with nebs and supplemental O2 as needed -DKA, resolved: cont SSI for now, diabetic diet -Acute toxic/metabolic encephalopathy, improved -Seizure disorder; seizure precautions, no new episodes of seizure, Ativan when necessary, neurology did not recommend antiepileptic medications -Elevated troponin/NSTEMI type 2, Echocardiogram for further evaluation - Ef 25- 30%, Cardiology consulted, medical Mx for now, -Acute systolic CHF, Ef 25-30%, anti-failure medications, Cardiology is foll owing -Chronic hypotension. Consider Midodrine. -ARF. Etiology secondary to ATN and vasomotor nephropathy, poa, resolved -Hyperkalemia, resolved -Abnormal LFT, Probably due to sepsis, resolving and chronic hepatitis C virus infection, Abdominal US showed no sign of cirrhosis: monitor cmp -Anemia, appears acute on chronic AOCD: monitor closely on iv heparin drip -Severe protein calorie malnutrition, bmi 14.8; nutrition supplements, Dietitian consulted -DVT prophylaxis with Eliquis -GI prophylaxis with famotidine -Tobacco abuse. Patient with a long smoking history of one pack per day or more since age 9. Patient was counseled on smoking cessation. -Disposition: continue inpatient care. Possible rehab vs Subacute rehab placement==>Physical therapy recommended Subacute Rehab but re-evaluation pending. History Interval history: Patient is a 58 yo man with a history of COPD, DM, hypertension, asthma, peripheral neuropathy, chronic hepatitis C virus, panic attack. anxiety disorder, polysubstance abuse including alcohol, cocaine and heroin who presented to [facility] ED on 10/11/18 with AMS. He was diagnosis with septic shock due to pneumonia, placed on abx and vasopressors. He was also diagnosis with DKA/respiratory failure/Status epilepticus/ARF. Patient s/p left BKA, right open thrombectomy and aortic stenting and bilateral common iliac artery stenting but right EIA occluded requiring another open thrombectomy and stenting of the right iliac system. Vascular surgery felt patient will need evaluation of his devascularized skin along the lateral aspect of his left stump. Left below-knee amputation stump site is looking marginal. It may not be salvageable and require above-knee amputation conversion. No new issues overnight. Hospitalist Physical - Constitutional Vitals: Temp Pulse Resp BP Pulse Ox 97.5 F L 72 18 121/71 97 11/10/18 05:57 11/10/18 09:51 11/10/18 09:51 11/10/18 05:57 11/10/18 09:50 General appearance: Present: no acute distress, cachectic - EENT Eyes: Present: PERRL, EOM intact ENT: hearing intact, clear oral mucosa, dentition normal - Neck Neck: Present: supple, normal ROM - Respiratory Respiratory effort: normal Respiratory: bilateral: CTA - Cardiovascular Rhythm: regular Heart Sounds: Present: S1 & S2. Absent: gallop, rub - Extremities Extremities: abnormal (left BKA, right ischemic lower extremity/necrotic toes.) - Abdominal General gastrointestinal: soft, non-tender, non-distended, normal bowel sounds - Integumentary Integumentary: Present: clear, warm, dry - Neurologic Neurologic: CNII-XII intact, moves all extremities Results - Labs CBC & Chem 7: 11/10/18 06:27 11/10/18 06:27 Labs: Laboratory Last Values WBC 10.6 K/mm3 (4.5-11.0) 11/10/18 06:27 RBC 3.50 M/mm3 (3.65-5.03) L 11/10/18 06:27 Hgb 10.7 gm/dl (11.8-15.2) L 11/10/18 06:27 Hct 31.2 % (35.5-45.6) L 11/10/18 06:27 MCV 89 fl (84-94) 11/10/18 06:27 MCH 31 pg (28-32) 11/10/18 06:27 MCHC 34 % (32-34) 11/10/18 06:27 RDW 14.1 % (13.2-15.2) 11/10/18 06:27 Plt Count 496 K/mm3 (140-440) H 11/10/18 06:27 Lymph % (Auto) 16.3 % (13.4-35.0) 11/10/18 06:27 [place] % (Auto) 11.8 % (0.0-7.3) H 11/10/18 06:27 Eos % (Auto) 1.3 % (0.0-4.3) 11/10/18 06:27 Baso % (Auto) 0.8 % (0.0-1.8) 11/10/18 06:27 Lymph # 1.7 K/mm3 (1.2-5.4) 11/10/18 06:27 [place] # 1.2 K/mm3 (0.0-0.8) H 11/10/18 06:27 Eos # 0.1 K/mm3 (0.0-0.4) 11/10/18 06:27 Baso # 0.1 K/mm3 (0.0-0.1) 11/10/18 06:27 Add Manual Diff Complete 10/30/18 04:22 Total Counted 200 10/30/18 04:22 Seg Neutrophils % 69.8 % (40.0-70.0) 11/10/18 06:27 Seg Neuts % (Manual) 69.0 % (40.0-70.0) 10/30/18 04:22 26.0 % 10/30/18 04:22 1.5 % (13.4-35.0) L 10/30/18 04:22 Reactive Lymphs % (Man) 0 % 10/30/18 04:22 2.0 % (0.0-7.3) 10/30/18 04:22 0 % (0.0-4.3) 10/30/18 04:22 0 % (0.0-1.8) 10/30/18 04:22 1.0 % 10/30/18 04:22 0.5 % 10/30/18 04:22 0 % 10/30/18 04:22 0 % 10/30/18 04:22 Nucleated RBC % Not Reportable 10/30/18 04:22 Seg Neutrophils # 7.4 K/mm3 (1.8-7.7) 11/10/18 06:27 Seg Neutrophils # Man 18.6 K/mm3 (1.8-7.7) H 10/30/18 04:22 Band Neutrophils # 7.0 K/mm3 10/30/18 04:22 0.4 K/mm3 (1.2-5.4) L 10/30/18 04:22 Abs React Lymphs (Man) 0.0 K/mm3 10/30/18 04:22 0.5 K/mm3 (0.0-0.8) 10/30/18 04:22 0.0 K/mm3 (0.0-0.4) 10/30/18 04:22 0.0 K/mm3 (0.0-0.1) 10/30/18 04:22 0.3 K/mm3 10/30/18 04:22 0.1 K/mm3 10/30/18 04:22 0.0 K/mm3 10/30/18 04:22 Blast Cells # 0.0 K/mm3 10/30/18 04:22 Pathologist Review 10/11/18 00:16 WBC Morphology Not Reportable 10/30/18 04:22 WBC Morphology TNR 10/30/18 04:22 Hypersegmented Neuts Not Reportable 10/30/18 04:22 Hyposegmented Neuts Not Reportable 10/30/18 04:22 Hypogranular Neuts Not Reportable 10/30/18 04:22 Not Reportable 10/30/18 04:22 Not Reportable 10/30/18 04:22 Not Reportable 10/30/18 04:22 Not Reportable 10/30/18 04:22 Not Reportable 10/30/18 04:22 Not Reportable 10/30/18 04:22 Consistent w auto 10/30/18 04:22 Not Reportable 10/30/18 04:22 Plt Clumps, EDTA Not Reportable 10/30/18 04:22 Not Reportable 10/30/18 04:22 Not Reportable 10/30/18 04:22 Not Reportable 10/30/18 04:22 Plt Morphology Comment Not Reportable 10/30/18 04:22 RBC Morphology Not Reportable 10/30/18 04:22 Dimorphic RBCs Not Reportable 10/30/18 04:22 Not Reportable 10/30/18 04:22 Not Reportable 10/30/18 04:22 Not Reportable 10/30/18 04:22 Not Reportable 10/30/18 04:22 Not Reportable 10/30/18 04:22 Not Reportable 10/30/18 04:22 Not Reportable 10/30/18 04:22 Not Reportable 10/30/18 04:22 Not Reportable 10/30/18 04:22 Not Reportable 10/30/18 04:22 Not Reportable 10/30/18 04:22 Not Reportable 10/30/18 04:22 Not Reportable 10/30/18 04:22 Not Reportable 10/30/18 04:22 Not Reportable 10/30/18 04:22 Not Reportable 10/30/18 04:22 Not Reportable 10/30/18 04:22 Not Reportable 10/30/18 04:22 Not Reportable 10/30/18 04:22 Acanthocytes (Spur) Not Reportable 10/30/18 04:22 Rouleaux Not Reportable 10/30/18 04:22 Not Reportable 10/30/18 04:22 Not Reportable 10/30/18 04:22 Not Reportable 10/30/18 04:22 Not Reportable 10/30/18 04:22 Hem Pathologist Commnt No 10/30/18 04:22 PT 13.9 Sec. (12.2-14.9) 10/29/18 07:11 INR 1.01 (0.87-1.13) 10/29/18 07:11 APTT 30.3 Sec. (24.2-36.6) 10/27/18 13:33 Heparin Anti-Xa Level 1.05 U.I./ml (0.3-0.7) H 11/01/18 11:38 Heparin Anti-Xa, Unfract Negative (Negative) 10/15/18 12:00 POC ABG pH 7.393 (7.35-7.45) 10/16/18 12:51 POC ABG pCO2 48.9 (35-45) H 10/16/18 12:51 POC ABG pO2 92 (80-105) 10/16/18 12:51 POC ABG HCO3 29.8 (22-26 mml/L) 10/16/18 12:51 POC ABG Total CO2 31 (23-27mmol/L) 10/16/18 12:51 POC ABG O2 Sat 97 10/16/18 12:51 POC ABG Base Excess 5 ((-2) - (+3)mmol/L) 10/16/18 12:51 35 % 10/16/18 12:51 Sodium 135 mmol/L (137-145) L 11/10/18 06:27 Potassium 4.1 mmol/L (3.6-5.0) 11/10/18 06:27 Chloride 97.2 mmol/L (98-107) L 11/10/18 06:27 Carbon Dioxide 27 mmol/L (22-30) 11/10/18 06:27 15 mmol/L 11/10/18 06:27 BUN 11 mg/dL (9-20) 11/10/18 06:27 0.4 mg/dL (0.8-1.5) L 11/10/18 06:27 Estimated GFR > 60 ml/min 11/10/18 06:27 28 % 11/10/18 06:27 Glucose 137 mg/dL (75-100) H 11/10/18 06:27 POC Glucose 145 (70-105) H 11/10/18 09:01 Lactic Acid 2.70 mmol/L (0.7-2.0) H* 10/11/18 12:30 Calcium 8.7 mg/dL (8.4-10.2) 11/10/18 06:27 Phosphorus 2.80 mg/dL (2.5-4.5) 10/21/18 04:59 Magnesium 1.70 mg/dL (1.7-2.3) 11/01/18 05:52 0.70 mg/dL (0.1-1.2) 11/04/18 15:45 AST 38 units/L (5-40) 11/04/18 15:45 ALT 23 units/L (7-56) 11/04/18 15:45 54 units/L (35-129) 11/04/18 15:45 3647 units/L (55-170) H 10/12/18 04:04 CK-MB (CK-2) 48.3 ng/mL (0.0-4.0) H 10/12/18 04:04 CK-MB (CK-2) Rel Index 1.3 (0-4) 10/12/18 04:04 0.816 ng/mL (0.00-0.029) H* 10/13/18 16:15 6.8 g/dL (6.3-8.2) 11/04/18 15:45 2.6 g/dL (3.9-5) L 11/04/18 15:45 0.6 % 11/04/18 15:45 0.073 g/L (0.200-0.400) L 11/04/18 15:45 Triglycerides 87 mg/dL (2-149) 10/11/18 00:16 Cholesterol 73 mg/dL (50-199) 10/11/18 00:16 51 mg/dL (50-130) 10/11/18 00:16 19 mg/dL (40-59) L 10/11/18 00:16 3.84 % 10/11/18 00:16 See scanned report 10/15/18 12:00 Yellow (Yellow) 10/11/18 01:42 Cloudy (Clear) 10/11/18 01:42 6.0 (5.0-7.0) 10/11/18 01:42 Ur Specific [place] 1.011 (1.003-1.030) 10/11/18 01:42 100 mg/dl mg/dL (Negative) 10/11/18 01:42 >=500 mg/dL (Negative) 10/11/18 01:42 Neg mg/dL (Negative) 10/11/18 01:42 Mod (Negative) 10/11/18 01:42 Neg (Negative) 10/11/18 01:42 Neg (Negative) 10/11/18 01:42 4.0 mg/dL (<2.0) 10/11/18 01:42 Ur Leukocyte Esterase Neg (Negative) 10/11/18 01:42 5.0 /HPF (0.0-6.0) 10/11/18 01:42 2.0 /HPF (0.0-6.0) 10/11/18 01:42 U Epithel Cells (Auto) < 1.0 /HPF (0-13.0) 10/11/18 01:42 Amorphous Crystals 1+ 10/11/18 01:42 Few /HPF 10/11/18 01:42 2+ /HPF ([employer]) 10/11/18 01:42 Vancomycin Trough 8.3 ug/mL (5.0-20.0) 10/13/18 05:40 Salicylates < 0.3 mg/dL (2.8-20.0) L 10/11/18 00:16 Presumptive positive 10/11/18 01:42 Presumptive negative 10/11/18 01:42 Acetaminophen < 5.0 ug/mL (10.0-30.0) L 10/11/18 00:16 Ur Barbiturates Screen Presumptive negative 10/11/18 01:42 Ur Phencyclidine Scrn Presumptive negative 10/11/18 01:42 Ur Amphetamines Screen Presumptive positive 10/11/18 01:42 U Benzodiazepines Scrn Presumptive positive 10/11/18 01:42 Presumptive negative 10/11/18 01:42 U Marijuana (THC) Screen Presumptive negative 10/11/18 01:42 Disclamer 10/11/18 01:42 Plasma/Serum Alcohol < 0.01 % (0-0.07) 10/11/18 00:16 Heparin-induced Plt Ab Negative (Negative) 10/15/18 12:00 UF Heparin High Dose 0 % Release 10/15/18 12:00 UARELIO UFH Low Dose 0.1 0 % Release 10/15/18 12:00 AURELIO UFH Low Dose 0.5 0 % Release 10/15/18 12:00 Blood Type O POSITIVE 10/31/18 08:07 Antibody Screen Positive 10/31/18 08:07 Antibody Identification Negative 10/31/18 08:07 Direct Antiglob Test Negative 10/31/18 08:07 SHASHANK, Poly Interpret Negative 10/31/18 08:07 Crossmatch See Detail 10/31/18 08:07 Active Medications - Current Medications Current Medications: Generic Name Dose Route Start Last Admin Trade Name Freq PRN Reason Stop Dose Admin Acetaminophen 650 mg 10/11/18 04:04 10/21/18 22:21 Tylenol PO 650 mg Q4H PRN Administration Pain MILD(1-3)/Fever >100.5/HOLLINS Albuterol 2.5 mg 10/19/18 00:54 Proventil IH Q4HRT PRN Shortness Of Breath Albuterol/Ipratropium 1 ampul 10/19/18 08:00 11/10/18 09:48 Duoneb *Not For Prn Use* IH 1 ampul TIDRT ISAAC Administration Alprazolam 1 mg 10/20/18 13:06 11/07/18 13:43 Xanax PO 1 mg TID PRN Administration Anxiety Apixaban 5 mg 11/08/18 22:00 11/09/18 23:00 Eliquis PO 5 mg Q12HR ISAAC Administration Protocol Aspirin 81 mg 11/01/18 16:00 11/09/18 10:06 Halfprin Ec PO 81 mg QDAY ISAAC Administration Buprenorphine HCl 2 each 11/05/18 10:00 11/09/18 10:00 Suboxone 2 Mg-0.5 Mg SL 2 each QDAY ISAAC Administration Citalopram Hydrobromide 20 mg 11/05/18 10:00 11/09/18 10:06 Celexa PO 20 mg QDAY ISAAC Administration Dextrose 0 ml 10/11/18 03:57 10/11/18 10:18 D50w (25gm) Syringe IV 10 ml PRN PRN Administration Hypoglycemia Docusate Sodium 100 mg 11/04/18 22:00 11/09/18 23:01 Colace PO 100 mg BID ISAAC Administration Famotidine 20 mg 10/15/18 10:00 11/09/18 23:01 Pepcid PO 20 mg BID ISAAC Administration Insulin Human Regular 0 units 10/17/18 11:30 11/10/18 08:57 Humulin R SUB-Q Not Given ACHS ISAAC Protocol Metoprolol Tartrate 25 mg 10/18/18 22:00 11/09/18 23:01 Lopressor PO Not Given BID ISAAC Metoprolol Tartrate 2.5 mg 10/18/18 18:51 10/18/18 22:19 Lopressor IV 2.5 mg Q6H PRN Administration Tachyarrhythmias Naloxone HCl 0.1 mg 10/29/18 16:03 Narcan 0.4 Mg/1 Ml IV Q2MIN PRN Res Rate </= 8 or 02 SAT < 92% Ondansetron HCl 4 mg 10/11/18 04:04 11/01/18 22:12 Zofran IV 4 mg Q8H PRN Administration Nausea And Vomiting Oxycodone/Acetaminophen 1 tab 10/18/18 13:45 11/10/18 04:53 Percocet 5/325 PO 1 tab Q6H PRN Administration Pain, Moderate (4-6) Nutrition/Malnutrition Assess - Dietary Evaluation Nutrition/Malnutrition Findings: Nutrition Notes Start: 10/11/18 12:39 Freq: Status: Active Protocol: Document 11/06/18 16:04 SHERLY (Rec: 11/06/18 16:14 SHERLY [email or web address]) Nutrition Notes Initial or Follow up Reassessment Current Diagnosis COPD,Diabetes,Sepsis, Hypertension,Heart Failure, Stroke Other Pertinent Diagnosis s/p (L) BKA Current Diet Mech soft + Glucerna and Hernesto BID Labs/Tests BG 163 Pertinent Medications Reviewed Height 6 ft 3 in Weight 55.2 kg [place] Body Weight (kg) 89.09 BMI 15.2 Weight change and time frame Current wt obtained from bed scale. Adj wt for BKA: 58.66kg Adj BMI: 16.1 Subjective/Other Information Pt has consumed 55% of meals over the past two days. He is confused at times and requires assistance during meal times. RD assisted pt with lunch today; he ate <25% of meal. He is edentulous, but does not want pureed foods. Takes him a long time to chew foods. Pt encouraged to drink ONS ( Glucerna and [place]) Percent of energy/protein needs met: 62% energy 66% pro (without ONS) Burn Absent Trauma Absent #2 Nutrition Diagnosis Inadequate oral intake Diagnosis Progress(for reassessment Continues documentation) #1 Nutrition Diagnosis Malnutrition Diagnosis Progress(for reassessment Continues documentation) Is patient on ventilator? No Is Patient Ambulatory and/or Out of Bed Yes REE-([facility]-ambulatory/OOB) [ 1907.919 [id number]] Kcal/Kg value to use for calculation 40 Approximate Energy Requirements Using 2208 kcal/Kg Calculation Used for Recommendations Kcal/kg Additional Notes Pro needs 1.5-2g/k-110g/ day Fluid needs 1ml/kcal Nutrition Intervention Change Diet Order: Continue current diet order Add Supplement/Snack (indicate name/kcal Glucerna BID + [place] BID /protein ) Provides kCal: 630 Provides Protein (gm) 25 Goal #1 PO intake of meals plus ONS to meet 100% energy and pro needs Goal #2 Wt maintenance and/or gain Follow-Up By: 11/13/18 Additional Comments F/U: intakes, wt
[2018-11-10] MEDS: COLACE PO SCH ×2 (11:52→22:26)
[2018-11-10] MEDS: HALFPRIN EC PO SCH (11:53)
[2018-11-10] MEDS: PEPCID PO SCH ×2 (11:53→22:26)
[2018-11-10] MEDS: ELIQUIS PO SCH ×2 (11:53→22:26)
[2018-11-10] MEDS: celeXA PO SCH (11:53)
[2018-11-10] MEDS: LOPRESSOR PO SCH ×2 (11:56→22:30)
--- NOTE | 2018-11-10 13:30 | Progress Note ---
Assessment and Plan Acute hypoxemic respiratory failure, on mechanical ventilator support. Drug overdose. Acute chronic obstructive pulmonary disease exacerbation. Severe PVD Witnessed seizure en route. Acute kidney injury. Leukocytosis. Hypercapnia. Hyperkalemia. Metabolic acidosis. Lactic acidosis. Non-ST elevation myocardial infarction. Elevated serum transaminases. - may likely need ICU observation post-op on monday - continue aspiration precautions - continue full anticoagulation with Eliquis re: PVD (bridge anticoagulation per surgical team) - continue bronchodilators with pulmonary hygiene per RT (re: COPD) - continue GI & VTE prophylaxis - prn supplemental oxygen to keep O2 sats 88-90% - prn BIPAP (especially post-op) - follow clinically off AB's (rene-op AB's per surgical team) - continue accuchecks with glycemic control per SSI for target glucose of 140- 180 mg/dL - Maintenance of sleep -wake cycle - Mobility as tolerated by hemodynamics - Influenza and pneumonia vaccination per protocol ..care plan discussed at length with RN/RT at the bedside Subjective Date of service: 11/10/18 Principal diagnosis: Ac hypercapnic hypoxemic Resp failure; Drug OD; AE-COPD; NINOSKA; Seizures Interval history: Patient is seen today for: Acute hypoxemic respiratory failure, on mechanical ventilator support; Drug overdose; Acute chronic obstructive pulmonary disease exacerbation; Witnessed seizure en route; Acute kidney injury; Leukocytosis; Hypercapnia. Seen and examined at bedside; 24-hour events reviewed; nursing and respiratory care staff consulted; no adverse overnight events reported to me; resting peacefully in bed; denies acute chest pains or palpitations; no N/V/F/C; no daytime BIPAP requirements Objective Vital Signs - 12hr 11/10/18 11/10/18 11/10/18 05:55 05:57 09:45 Temperature 97.5 F L Pulse Rate 71 Pulse Rate [ 75 Throughout] Respiratory 20 20 Rate Respiratory 20 Rate [ Throughout] Blood Pressure 121/71 Blood Pressure 121/71 [Right] O2 Sat by Pulse 95 Oximetry 11/10/18 11/10/18 11/10/18 09:50 09:51 11:27 Temperature 97.3 F L Pulse Rate 78 Pulse Rate [ 72 Throughout] Respiratory 18 Rate Respiratory 18 Rate [ Throughout] Blood Pressure 113/61 Blood Pressure [Right] O2 Sat by Pulse 97 94 Oximetry 11/10/18 11:56 Temperature Pulse Rate 78 Pulse Rate [ Throughout] Respiratory Rate Respiratory Rate [ Throughout] Blood Pressure 113/61 Blood Pressure [Right] O2 Sat by Pulse Oximetry Constitutional: no acute distress, asleep, other (middle aged but chronically ill looking CM; Atraumatic) Eyes: non-icteric ENT: oropharynx moist, other (mallampati 2) Neck: supple, no lymphadenopathy, no JVD Effort: normal Ascultation: Bilateral: diminished breath sounds, rhonchi (scant) Percussion: Bilateral: not dull Cardiovascular: irregular rhythm, other (No R/M) Gastrointestinal: normoactive bowel sounds, soft, non-tender, non-distended Integumentary: other (s/p left BKA) Extremities: no edema, other (S/P Left BKA) Neurologic: normal mental status, pupils equal and round, other (Left hemiparesis, improving) Psychiatric: mood appropriate, affect normal CBC and BMP: 11/10/18 06:27 11/10/18 06:27 ABG, PT/INR, D-dimer: ABG POC ABG pH 7.393 (7.35-7.45) 10/16/18 12:51 POC ABG pCO2 48.9 (35-45) H 10/16/18 12:51 POC ABG pO2 92 (80-105) 10/16/18 12:51 POC ABG HCO3 29.8 (22-26 mml/L) 10/16/18 12:51 POC ABG Total CO2 31 (23-27mmol/L) 10/16/18 12:51 POC ABG O2 Sat 97 10/16/18 12:51 PT/INR, D-dimer PT 13.9 Sec. (12.2-14.9) 10/29/18 07:11 INR 1.01 (0.87-1.13) 10/29/18 07:11 Abnormal lab findings: Abnormal Labs 10/11/18 10/11/18 10/11/18 00:16 00:16 00:16 WBC 20.1 H RBC Hgb Hct MCV 98 H MCHC RDW 15.4 H Plt Count Lymph % (Auto) [place] % (Auto) [place] # Seg Neutrophils % Seg Neuts % (Manual) Lymphocytes % (Manual) 5.0 L Monocytes % (Manual) 25.0 H Seg Neutrophils # Seg Neutrophils # Man 9.2 H Lymphocytes # (Manual) 1.0 L Monocytes # (Manual) 5.0 H APTT Heparin Anti-Xa Level POC ABG pH POC ABG pCO2 POC ABG pO2 Sodium Potassium 5.8 H Chloride Carbon Dioxide 17 L BUN Creatinine 2.2 H Glucose 348 H POC Glucose Lactic Acid 13.70 H* Calcium 7.7 L Phosphorus Total Bilirubin 1.50 H AST 179 H ALT 110 H Total Creatine Kinase 324 H CK-MB (CK-2) Troponin T 0.257 H* Total Protein 5.9 L Albumin 2.9 L Prealbumin HDL Cholesterol 19 L Salicylates Acetaminophen Crossmatch 10/11/18 10/11/18 10/11/18 00:16 00:16 01:21 WBC RBC Hgb Hct MCV MCHC RDW Plt Count Lymph % (Auto) [place] % (Auto) [place] # Seg Neutrophils % Seg Neuts % (Manual) Lymphocytes % (Manual) Monocytes % (Manual) Seg Neutrophils # Seg Neutrophils # Man Lymphocytes # (Manual) Monocytes # (Manual) APTT Heparin Anti-Xa Level POC ABG pH 7.110 L POC ABG pCO2 50.3 H POC ABG pO2 65 L Sodium Potassium Chloride Carbon Dioxide BUN Creatinine Glucose POC Glucose Lactic Acid Calcium Phosphorus Total Bilirubin AST ALT Total Creatine Kinase CK-MB (CK-2) Troponin T Total Protein Albumin Prealbumin HDL Cholesterol Salicylates < 0.3 L Acetaminophen < 5.0 L Crossmatch 10/11/18 10/11/18 10/11/18 01:22 03:27 04:14 WBC RBC Hgb Hct MCV MCHC RDW Plt Count Lymph % (Auto) [place] % (Auto) [place] # Seg Neutrophils % Seg Neuts % (Manual) Lymphocytes % (Manual) Monocytes % (Manual) Seg Neutrophils # Seg Neutrophils # Man Lymphocytes # (Manual) Monocytes # (Manual) APTT Heparin Anti-Xa Level POC ABG pH POC ABG pCO2 POC ABG pO2 Sodium Potassium Chloride Carbon Dioxide BUN Creatinine Glucose POC Glucose Lactic Acid 8.50 H* 4.10 H* Calcium Phosphorus 4.90 H Total Bilirubin AST ALT Total Creatine Kinase CK-MB (CK-2) Troponin T Total Protein Albumin Prealbumin HDL Cholesterol Salicylates Acetaminophen Crossmatch 10/11/18 10/11/18 10/11/18 04:14 04:14 04:14 WBC RBC Hgb Hct MCV MCHC RDW Plt Count Lymph % (Auto) [place] % (Auto) [place] # Seg Neutrophils % Seg Neuts % (Manual) Lymphocytes % (Manual) Monocytes % (Manual) Seg Neutrophils # Seg Neutrophils # Man Lymphocytes # (Manual) Monocytes # (Manual) APTT Heparin Anti-Xa Level POC ABG pH POC ABG pCO2 POC ABG pO2 Sodium Potassium 5.6 H Chloride Carbon Dioxide 19 L BUN Creatinine 1.6 H Glucose 329 H POC Glucose 328 H Lactic Acid Calcium 7.3 L Phosphorus Total Bilirubin AST ALT Total Creatine Kinase CK-MB (CK-2) Troponin T 1.130 H* D Total Protein Albumin Prealbumin HDL Cholesterol Salicylates Acetaminophen Crossmatch 10/11/18 10/11/18 10/11/18 05:10 05:32 05:58 WBC RBC Hgb Hct MCV MCHC RDW Plt Count Lymph % (Auto) [place] % (Auto) [place] # Seg Neutrophils % Seg Neuts % (Manual) Lymphocytes % (Manual) Monocytes % (Manual) Seg Neutrophils # Seg Neutrophils # Man Lymphocytes # (Manual) Monocytes # (Manual) APTT Heparin Anti-Xa Level POC ABG pH 7.259 L POC ABG pCO2 45.6 H POC ABG pO2 Sodium Potassium Chloride 108.6 H Carbon Dioxide 20 L BUN Creatinine 1.8 H Glucose 269 H POC Glucose 273 H Lactic Acid Calcium 7.0 L Phosphorus Total Bilirubin AST ALT Total Creatine Kinase CK-MB (CK-2) Troponin T Total Protein Albumin Prealbumin HDL Cholesterol Salicylates Acetaminophen Crossmatch 10/11/18 10/11/18 10/11/18 05:58 06:39 07:00 WBC RBC Hgb Hct MCV MCHC RDW Plt Count Lymph % (Auto) [place] % (Auto) [place] # Seg Neutrophils % Seg Neuts % (Manual) Lymphocytes % (Manual) Monocytes % (Manual) Seg Neutrophils # Seg Neutrophils # Man Lymphocytes # (Manual) Monocytes # (Manual) APTT Heparin Anti-Xa Level POC ABG pH POC ABG pCO2 POC ABG pO2 Sodium Potassium Chloride Carbon Dioxide BUN Creatinine Glucose POC Glucose 247 H Lactic Acid 3.20 H* 3.30 H* Calcium Phosphorus Total Bilirubin AST ALT Total Creatine Kinase CK-MB (CK-2) Troponin T Total Protein Albumin Prealbumin HDL Cholesterol Salicylates Acetaminophen Crossmatch 10/11/18 10/11/18 10/11/18 07:00 07:30 07:36 WBC RBC Hgb Hct MCV MCHC RDW Plt Count Lymph % (Auto) [place] % (Auto) [place] # Seg Neutrophils % Seg Neuts % (Manual) Lymphocytes % (Manual) Monocytes % (Manual) Seg Neutrophils # Seg Neutrophils # Man Lymphocytes # (Manual) Monocytes # (Manual) APTT Heparin Anti-Xa Level POC ABG pH POC ABG pCO2 POC ABG pO2 Sodium 146 H Potassium Chloride 112.1 H Carbon Dioxide 21 L BUN Creatinine 1.6 H Glucose 218 H POC Glucose Lactic Acid 3.20 H* Calcium 7.0 L Phosphorus Total Bilirubin AST ALT Total Creatine Kinase CK-MB (CK-2) Troponin T 1.020 H* Total Protein Albumin Prealbumin HDL Cholesterol Salicylates Acetaminophen Crossmatch 10/11/18 10/11/18 10/11/18 07:43 08:29 08:29 WBC RBC Hgb 16.2 H Hct 49.9 H D MCV MCHC RDW Plt Count Lymph % (Auto) [place] % (Auto) [place] # Seg Neutrophils % Seg Neuts % (Manual) Lymphocytes % (Manual) Monocytes % (Manual) Seg Neutrophils # Seg Neutrophils # Man Lymphocytes # (Manual) Monocytes # (Manual) APTT Heparin Anti-Xa Level POC ABG pH POC ABG pCO2 POC ABG pO2 Sodium Potassium Chloride Carbon Dioxide BUN Creatinine Glucose POC Glucose 174 H Lactic Acid 3.90 H* Calcium Phosphorus Total Bilirubin AST ALT Total Creatine Kinase CK-MB (CK-2) Troponin T Total Protein Albumin Prealbumin HDL Cholesterol Salicylates Acetaminophen Crossmatch 10/11/18 10/11/18 10/11/18 08:29 08:42 11:05 WBC RBC Hgb Hct MCV MCHC RDW Plt Count Lymph % (Auto) [place] % (Auto) [place] # Seg Neutrophils % Seg Neuts % (Manual) Lymphocytes % (Manual) Monocytes % (Manual) Seg Neutrophils # Seg Neutrophils # Man Lymphocytes # (Manual) Monocytes # (Manual) APTT 24.1 L Heparin Anti-Xa Level POC ABG pH POC ABG pCO2 POC ABG pO2 Sodium 147 H Potassium Chloride 113.3 H Carbon Dioxide 21 L BUN Creatinine 1.7 H Glucose 119 H POC Glucose 164 H Lactic Acid Calcium 7.7 L Phosphorus Total Bilirubin AST ALT Total Creatine Kinase CK-MB (CK-2) Troponin T Total Protein Albumin Prealbumin HDL Cholesterol Salicylates Acetaminophen Crossmatch 10/11/18 10/11/18 10/11/18 11:05 11:06 12:30 WBC RBC Hgb Hct MCV MCHC RDW Plt Count Lymph % (Auto) [place] % (Auto) [place] # Seg Neutrophils % Seg Neuts % (Manual) Lymphocytes % (Manual) Monocytes % (Manual) Seg Neutrophils # Seg Neutrophils # Man Lymphocytes # (Manual) Monocytes # (Manual) APTT Heparin Anti-Xa Level POC ABG pH POC ABG pCO2 POC ABG pO2 Sodium 148 H Potassium Chloride 113.4 H Carbon Dioxide 21 L BUN Creatinine 1.6 H Glucose 119 H POC Glucose 116 H Lactic Acid 3.20 H* Calcium 7.5 L Phosphorus Total Bilirubin AST ALT Total Creatine Kinase CK-MB (CK-2) Troponin T Total Protein Albumin Prealbumin HDL Cholesterol Salicylates Acetaminophen Crossmatch 10/11/18 10/11/18 10/11/18 12:30 13:16 13:25 WBC RBC Hgb Hct MCV MCHC RDW Plt Count Lymph % (Auto) [place] % (Auto) [place] # Seg Neutrophils % Seg Neuts % (Manual) Lymphocytes % (Manual) Monocytes % (Manual) Seg Neutrophils # Seg Neutrophils # Man Lymphocytes # (Manual) Monocytes # (Manual) APTT Heparin Anti-Xa Level POC ABG pH 7.247 L POC ABG pCO2 48.4 H POC ABG pO2 Sodium Potassium Chloride Carbon Dioxide BUN Creatinine Glucose POC Glucose 112 H Lactic Acid 2.70 H* Calcium Phosphorus Total Bilirubin AST ALT Total Creatine Kinase CK-MB (CK-2) Troponin T Total Protein Albumin Prealbumin HDL Cholesterol Salicylates Acetaminophen Crossmatch 10/11/18 10/11/18 10/11/18 14:41 15:27 16:13 WBC RBC Hgb Hct MCV MCHC RDW Plt Count Lymph % (Auto) [place] % (Auto) [place] # Seg Neutrophils % Seg Neuts % (Manual) Lymphocytes % (Manual) Monocytes % (Manual) Seg Neutrophils # Seg Neutrophils # Man Lymphocytes # (Manual) Monocytes # (Manual) APTT Heparin Anti-Xa Level POC ABG pH POC ABG pCO2 POC ABG pO2 Sodium Potassium Chloride Carbon Dioxide BUN Creatinine Glucose POC Glucose 127 H 141 H 134 H Lactic Acid Calcium Phosphorus Total Bilirubin AST ALT Total Creatine Kinase CK-MB (CK-2) Troponin T Total Protein Albumin Prealbumin HDL Cholesterol Salicylates Acetaminophen Crossmatch 10/11/18 10/11/18 10/11/18 17:18 18:23 19:38 WBC RBC Hgb Hct MCV MCHC RDW Plt Count Lymph % (Auto) [place] % (Auto) [place] # Seg Neutrophils % Seg Neuts % (Manual) Lymphocytes % (Manual) Monocytes % (Manual) Seg Neutrophils # Seg Neutrophils # Man Lymphocytes # (Manual) Monocytes # (Manual) APTT Heparin Anti-Xa Level POC ABG pH POC ABG pCO2 POC ABG pO2 Sodium 148 H Potassium Chloride 112.7 H Carbon Dioxide BUN 23 H Creatinine Glucose 143 H POC Glucose 132 H 129 H Lactic Acid Calcium 7.9 L Phosphorus Total Bilirubin AST ALT Total Creatine Kinase CK-MB (CK-2) Troponin T Total Protein Albumin Prealbumin HDL Cholesterol Salicylates Acetaminophen Crossmatch 10/11/18 10/11/18 10/11/18 20:19 20:36 21:01 WBC RBC Hgb Hct MCV MCHC RDW Plt Count Lymph % (Auto) [place] % (Auto) [place] # Seg Neutrophils % Seg Neuts % (Manual) Lymphocytes % (Manual) Monocytes % (Manual) Seg Neutrophils # Seg Neutrophils # Man Lymphocytes # (Manual) Monocytes # (Manual) APTT Heparin Anti-Xa Level POC ABG pH 7.281 L POC ABG pCO2 POC ABG pO2 Sodium Potassium Chloride Carbon Dioxide BUN Creatinine Glucose POC Glucose 129 H 151 H Lactic Acid Calcium Phosphorus Total Bilirubin AST ALT Total Creatine Kinase CK-MB (CK-2) Troponin T Total Protein Albumin Prealbumin HDL Cholesterol Salicylates Acetaminophen Crossmatch 10/11/18 10/11/18 10/12/18 22:04 23:15 01:18 WBC RBC Hgb Hct MCV MCHC RDW Plt Count Lymph % (Auto) [place] % (Auto) [place] # Seg Neutrophils % Seg Neuts % (Manual) Lymphocytes % (Manual) Monocytes % (Manual) Seg Neutrophils # Seg Neutrophils # Man Lymphocytes # (Manual) Monocytes # (Manual) APTT Heparin Anti-Xa Level POC ABG pH POC ABG pCO2 POC ABG pO2 Sodium Potassium Chloride Carbon Dioxide BUN Creatinine Glucose POC Glucose 147 H 143 H 158 H Lactic Acid Calcium Phosphorus Total Bilirubin AST ALT Total Creatine Kinase CK-MB (CK-2) Troponin T Total Protein Albumin Prealbumin HDL Cholesterol Salicylates Acetaminophen Crossmatch 10/12/18 10/12/18 10/12/18 02:13 03:18 04:04 WBC RBC Hgb Hct MCV MCHC RDW Plt Count Lymph % (Auto) [place] % (Auto) [place] # Seg Neutrophils % Seg Neuts % (Manual) Lymphocytes % (Manual) Monocytes % (Manual) Seg Neutrophils # Seg Neutrophils # Man Lymphocytes # (Manual) Monocytes # (Manual) APTT Heparin Anti-Xa Level POC ABG pH POC ABG pCO2 POC ABG pO2 Sodium 147 H Potassium Chloride 111.1 H Carbon Dioxide BUN 30 H Creatinine 2.0 H Glucose 154 H POC Glucose 148 H 142 H Lactic Acid Calcium 8.1 L Phosphorus Total Bilirubin AST 269 H ALT 204 H Total Creatine Kinase 3647 H CK-MB (CK-2) 48.3 H Troponin T 2.230 H* D Total Protein 5.8 L Albumin 2.6 L Prealbumin HDL Cholesterol Salicylates Acetaminophen Crossmatch 10/12/18 10/12/18 10/12/18 04:04 04:08 04:19 WBC 24.4 H RBC Hgb Hct MCV MCHC RDW Plt Count Lymph % (Auto) [place] % (Auto) [place] # Seg Neutrophils % Seg Neuts % (Manual) 32.0 L Lymphocytes % (Manual) Monocytes % (Manual) 8.0 H Seg Neutrophils # Seg Neutrophils # Man 7.8 H Lymphocytes # (Manual) Monocytes # (Manual) 2.0 H APTT Heparin Anti-Xa Level POC ABG pH 7.317 L POC ABG pCO2 49.3 H POC ABG pO2 Sodium Potassium Chloride Carbon Dioxide BUN Creatinine Glucose POC Glucose 143 H Lactic Acid Calcium Phosphorus Total Bilirubin AST ALT Total Creatine Kinase CK-MB (CK-2) Troponin T Total Protein Albumin Prealbumin HDL Cholesterol Salicylates Acetaminophen Crossmatch 10/12/18 10/12/18 10/12/18 05:29 06:52 08:09 WBC RBC Hgb Hct MCV MCHC RDW Plt Count Lymph % (Auto) [place] % (Auto) [place] # Seg Neutrophils % Seg Neuts % (Manual) Lymphocytes % (Manual) Monocytes % (Manual) Seg Neutrophils # Seg Neutrophils # Man Lymphocytes # (Manual) Monocytes # (Manual) APTT Heparin Anti-Xa Level POC ABG pH 7.322 L POC ABG pCO2 46.5 H POC ABG pO2 Sodium Potassium Chloride Carbon Dioxide BUN Creatinine Glucose POC Glucose 196 H 226 H Lactic Acid Calcium Phosphorus Total Bilirubin AST ALT Total Creatine Kinase CK-MB (CK-2) Troponin T Total Protein Albumin Prealbumin HDL Cholesterol Salicylates Acetaminophen Crossmatch 10/12/18 10/12/18 10/12/18 08:38 10:03 15:50 WBC RBC Hgb Hct MCV MCHC RDW Plt Count Lymph % (Auto) [place] % (Auto) [place] # Seg Neutrophils % Seg Neuts % (Manual) Lymphocytes % (Manual) Monocytes % (Manual) Seg Neutrophils # Seg Neutrophils # Man Lymphocytes # (Manual) Monocytes # (Manual) APTT Heparin Anti-Xa Level POC ABG pH POC ABG pCO2 POC ABG pO2 Sodium Potassium Chloride Carbon Dioxide BUN Creatinine Glucose POC Glucose 138 H 148 H 221 H Lactic Acid Calcium Phosphorus Total Bilirubin AST ALT Total Creatine Kinase CK-MB (CK-2) Troponin T Total Protein Albumin Prealbumin HDL Cholesterol Salicylates Acetaminophen Crossmatch 10/12/18 10/12/18 10/12/18 18:39 20:56 21:34 WBC RBC Hgb Hct MCV MCHC RDW Plt Count Lymph % (Auto) [place] % (Auto) [place] # Seg Neutrophils % Seg Neuts % (Manual) Lymphocytes % (Manual) Monocytes % (Manual) Seg Neutrophils # Seg Neutrophils # Man Lymphocytes # (Manual) Monocytes # (Manual) APTT Heparin Anti-Xa Level POC ABG pH 7.336 L POC ABG pCO2 46.0 H POC ABG pO2 Sodium Potassium Chloride Carbon Dioxide BUN Creatinine Glucose POC Glucose 255 H 260 H Lactic Acid Calcium Phosphorus Total Bilirubin AST ALT Total Creatine Kinase CK-MB (CK-2) Troponin T Total Protein Albumin Prealbumin HDL Cholesterol Salicylates Acetaminophen Crossmatch 10/13/18 10/13/18 10/13/18 02:29 05:09 05:40 WBC 17.0 H RBC Hgb Hct MCV MCHC RDW Plt Count Lymph % (Auto) [place] % (Auto) 9.2 H [place] # 1.6 H Seg Neutrophils % 76.2 H Seg Neuts % (Manual) Lymphocytes % (Manual) Monocytes % (Manual) Seg Neutrophils # 12.9 H Seg Neutrophils # Man Lymphocytes # (Manual) Monocytes # (Manual) APTT Heparin Anti-Xa Level POC ABG pH POC ABG pCO2 POC ABG pO2 Sodium Potassium Chloride Carbon Dioxide BUN Creatinine Glucose POC Glucose 216 H 249 H Lactic Acid Calcium Phosphorus Total Bilirubin AST ALT Total Creatine Kinase CK-MB (CK-2) Troponin T Total Protein Albumin Prealbumin HDL Cholesterol Salicylates Acetaminophen Crossmatch 10/13/18 10/13/18 10/13/18 05:40 05:40 09:46 WBC RBC Hgb Hct MCV MCHC RDW Plt Count Lymph % (Auto) [place] % (Auto) [place] # Seg Neutrophils % Seg Neuts % (Manual) Lymphocytes % (Manual) Monocytes % (Manual) Seg Neutrophils # Seg Neutrophils # Man Lymphocytes # (Manual) Monocytes # (Manual) APTT Heparin Anti-Xa Level POC ABG pH POC ABG pCO2 POC ABG pO2 Sodium 146 H Potassium Chloride 109.8 H Carbon Dioxide BUN 35 H Creatinine Glucose 245 H POC Glucose 235 H Lactic Acid Calcium 7.9 L Phosphorus Total Bilirubin AST ALT Total Creatine Kinase CK-MB (CK-2) Troponin T 0.952 H* D Total Protein Albumin Prealbumin HDL Cholesterol Salicylates Acetaminophen Crossmatch 10/13/18 10/13/18 10/13/18 13:58 16:15 17:30 WBC RBC Hgb Hct MCV MCHC RDW Plt Count Lymph % (Auto) [place] % (Auto) [place] # Seg Neutrophils % Seg Neuts % (Manual) Lymphocytes % (Manual) Monocytes % (Manual) Seg Neutrophils # Seg Neutrophils # Man Lymphocytes # (Manual) Monocytes # (Manual) APTT Heparin Anti-Xa Level POC ABG pH POC ABG pCO2 51.2 H POC ABG pO2 Sodium Potassium Chloride Carbon Dioxide BUN Creatinine Glucose POC Glucose 139 H Lactic Acid Calcium Phosphorus Total Bilirubin AST ALT Total Creatine Kinase CK-MB (CK-2) Troponin T 0.816 H* Total Protein Albumin Prealbumin HDL Cholesterol Salicylates Acetaminophen Crossmatch 10/13/18 10/14/18 10/14/18 21:25 01:49 04:52 WBC RBC Hgb Hct MCV MCHC RDW Plt Count Lymph % (Auto) [place] % (Auto) [place] # Seg Neutrophils % Seg Neuts % (Manual) Lymphocytes % (Manual) Monocytes % (Manual) Seg Neutrophils # Seg Neutrophils # Man Lymphocytes # (Manual) Monocytes # (Manual) APTT Heparin Anti-Xa Level POC ABG pH POC ABG pCO2 56.0 H POC ABG pO2 Sodium Potassium Chloride Carbon Dioxide BUN Creatinine Glucose POC Glucose 205 H 166 H Lactic Acid Calcium Phosphorus Total Bilirubin AST ALT Total Creatine Kinase CK-MB (CK-2) Troponin T Total Protein Albumin Prealbumin HDL Cholesterol Salicylates Acetaminophen Crossmatch 10/14/18 10/14/18 10/14/18 05:32 09:45 09:45 WBC RBC Hgb 11.4 L Hct 34.5 L MCV MCHC RDW Plt Count 139 L Lymph % (Auto) [place] % (Auto) [place] # Seg Neutrophils % Seg Neuts % (Manual) Lymphocytes % (Manual) Monocytes % (Manual) Seg Neutrophils # Seg Neutrophils # Man Lymphocytes # (Manual) Monocytes # (Manual) APTT Heparin Anti-Xa Level POC ABG pH POC ABG pCO2 POC ABG pO2 Sodium 148 H Potassium Chloride 107.3 H Carbon Dioxide 34 H D BUN Creatinine 0.7 L D Glucose 191 H POC Glucose 164 H Lactic Acid Calcium 7.3 L Phosphorus Total Bilirubin AST 110 H ALT 91 H Total Creatine Kinase CK-MB (CK-2) Troponin T Total Protein 4.9 L Albumin 2.0 L Prealbumin HDL Cholesterol Salicylates Acetaminophen Crossmatch 10/14/18 10/14/18 10/14/18 10:54 12:20 18:30 WBC RBC Hgb Hct MCV MCHC RDW Plt Count Lymph % (Auto) [place] % (Auto) [place] # Seg Neutrophils % Seg Neuts % (Manual) Lymphocytes % (Manual) Monocytes % (Manual) Seg Neutrophils # Seg Neutrophils # Man Lymphocytes # (Manual) Monocytes # (Manual) APTT Heparin Anti-Xa Level POC ABG pH POC ABG pCO2 POC ABG pO2 Sodium Potassium Chloride Carbon Dioxide BUN Creatinine Glucose POC Glucose 173 H 158 H 108 H Lactic Acid Calcium Phosphorus Total Bilirubin AST ALT Total Creatine Kinase CK-MB (CK-2) Troponin T Total Protein Albumin Prealbumin HDL Cholesterol Salicylates Acetaminophen Crossmatch 10/14/18 10/15/18 10/15/18 21:54 02:12 04:19 WBC RBC Hgb Hct MCV MCHC RDW Plt Count Lymph % (Auto) [place] % (Auto) [place] # Seg Neutrophils % Seg Neuts % (Manual) Lymphocytes % (Manual) Monocytes % (Manual) Seg Neutrophils # Seg Neutrophils # Man Lymphocytes # (Manual) Monocytes # (Manual) APTT Heparin Anti-Xa Level POC ABG pH 7.491 H POC ABG pCO2 45.1 H POC ABG pO2 Sodium Potassium Chloride Carbon Dioxide BUN Creatinine Glucose POC Glucose 110 H 164 H Lactic Acid Calcium Phosphorus Total Bilirubin AST ALT Total Creatine Kinase CK-MB (CK-2) Troponin T Total Protein Albumin Prealbumin HDL Cholesterol Salicylates Acetaminophen Crossmatch 10/15/18 10/15/18 10/15/18 04:55 05:43 06:20 WBC RBC Hgb 11.7 L Hct 34.7 L MCV MCHC RDW Plt Count Lymph % (Auto) [place] % (Auto) [place] # Seg Neutrophils % Seg Neuts % (Manual) Lymphocytes % (Manual) Monocytes % (Manual) Seg Neutrophils # Seg Neutrophils # Man Lymphocytes # (Manual) Monocytes # (Manual) APTT Heparin Anti-Xa Level POC ABG pH POC ABG pCO2 47.3 H POC ABG pO2 78 L Sodium Potassium Chloride Carbon Dioxide BUN Creatinine Glucose POC Glucose 250 H Lactic Acid Calcium Phosphorus Total Bilirubin AST ALT Total Creatine Kinase CK-MB (CK-2) Troponin T Total Protein Albumin Prealbumin HDL Cholesterol Salicylates Acetaminophen Crossmatch 10/15/18 10/15/18 10/15/18 12:00 12:00 12:11 WBC RBC Hgb 11.5 L Hct 34.0 L MCV MCHC RDW Plt Count Lymph % (Auto) [place] % (Auto) [place] # Seg Neutrophils % Seg Neuts % (Manual) Lymphocytes % (Manual) Monocytes % (Manual) Seg Neutrophils # Seg Neutrophils # Man Lymphocytes # (Manual) Monocytes # (Manual) APTT Heparin Anti-Xa Level POC ABG pH POC ABG pCO2 POC ABG pO2 Sodium 147 H Potassium Chloride 108.5 H Carbon Dioxide BUN Creatinine 0.7 L Glucose 209 H POC Glucose 197 H Lactic Acid Calcium 7.3 L Phosphorus Total Bilirubin AST ALT Total Creatine Kinase CK-MB (CK-2) Troponin T Total Protein Albumin Prealbumin HDL Cholesterol Salicylates Acetaminophen Crossmatch 10/15/18 10/15/18 10/15/18 15:48 18:34 21:29 WBC RBC Hgb Hct MCV MCHC RDW Plt Count Lymph % (Auto) [place] % (Auto) [place] # Seg Neutrophils % Seg Neuts % (Manual) Lymphocytes % (Manual) Monocytes % (Manual) Seg Neutrophils # Seg Neutrophils # Man Lymphocytes # (Manual) Monocytes # (Manual) APTT Heparin Anti-Xa Level POC ABG pH POC ABG pCO2 POC ABG pO2 Sodium Potassium Chloride Carbon Dioxide BUN Creatinine Glucose POC Glucose 220 H 249 H 209 H Lactic Acid Calcium Phosphorus Total Bilirubin AST ALT Total Creatine Kinase CK-MB (CK-2) Troponin T Total Protein Albumin Prealbumin HDL Cholesterol Salicylates Acetaminophen Crossmatch 10/16/18 10/16/18 10/16/18 02:16 03:50 05:57 WBC RBC Hgb Hct MCV MCHC RDW Plt Count Lymph % (Auto) [place] % (Auto) [place] # Seg Neutrophils % Seg Neuts % (Manual) Lymphocytes % (Manual) Monocytes % (Manual) Seg Neutrophils # Seg Neutrophils # Man Lymphocytes # (Manual) Monocytes # (Manual) APTT Heparin Anti-Xa Level POC ABG pH POC ABG pCO2 55.8 H POC ABG pO2 Sodium Potassium Chloride Carbon Dioxide BUN Creatinine Glucose POC Glucose 110 H 209 H Lactic Acid Calcium Phosphorus Total Bilirubin AST ALT Total Creatine Kinase CK-MB (CK-2) Troponin T Total Protein Albumin Prealbumin HDL Cholesterol Salicylates Acetaminophen Crossmatch 10/16/18 10/16/18 10/16/18 10:51 12:51 15:01 WBC RBC Hgb Hct MCV MCHC RDW Plt Count Lymph % (Auto) [place] % (Auto) [place] # Seg Neutrophils % Seg Neuts % (Manual) Lymphocytes % (Manual) Monocytes % (Manual) Seg Neutrophils # Seg Neutrophils # Man Lymphocytes # (Manual) Monocytes # (Manual) APTT Heparin Anti-Xa Level POC ABG pH POC ABG pCO2 48.9 H POC ABG pO2 Sodium Potassium Chloride Carbon Dioxide BUN Creatinine Glucose POC Glucose 198 H 196 H Lactic Acid Calcium Phosphorus Total Bilirubin AST ALT Total Creatine Kinase CK-MB (CK-2) Troponin T Total Protein Albumin Prealbumin HDL Cholesterol Salicylates Acetaminophen Crossmatch 10/16/18 10/16/18 10/17/18 17:34 21:59 02:17 WBC RBC Hgb Hct MCV MCHC RDW Plt Count Lymph % (Auto) [place] % (Auto) [place] # Seg Neutrophils % Seg Neuts % (Manual) Lymphocytes % (Manual) Monocytes % (Manual) Seg Neutrophils # Seg Neutrophils # Man Lymphocytes # (Manual) Monocytes # (Manual) APTT Heparin Anti-Xa Level POC ABG pH POC ABG pCO2 POC ABG pO2 Sodium Potassium Chloride Carbon Dioxide BUN Creatinine Glucose POC Glucose 179 H 139 H 135 H Lactic Acid Calcium Phosphorus Total Bilirubin AST ALT Total Creatine Kinase CK-MB (CK-2) Troponin T Total Protein Albumin Prealbumin HDL Cholesterol Salicylates Acetaminophen Crossmatch 10/17/18 10/17/18 10/17/18 05:40 05:47 10:18 WBC RBC Hgb 11.3 L Hct 33.2 L MCV MCHC RDW Plt Count Lymph % (Auto) [place] % (Auto) [place] # Seg Neutrophils % Seg Neuts % (Manual) Lymphocytes % (Manual) Monocytes % (Manual) Seg Neutrophils # Seg Neutrophils # Man Lymphocytes # (Manual) Monocytes # (Manual) APTT Heparin Anti-Xa Level POC ABG pH POC ABG pCO2 POC ABG pO2 Sodium Potassium Chloride Carbon Dioxide BUN Creatinine Glucose POC Glucose 125 H 139 H Lactic Acid Calcium Phosphorus Total Bilirubin AST ALT Total Creatine Kinase CK-MB (CK-2) Troponin T Total Protein Albumin Prealbumin HDL Cholesterol Salicylates Acetaminophen Crossmatch 10/17/18 10/18/18 10/18/18 23:11 08:49 11:31 WBC RBC Hgb Hct MCV MCHC RDW Plt Count Lymph % (Auto) [place] % (Auto) [place] # Seg Neutrophils % Seg Neuts % (Manual) Lymphocytes % (Manual) Monocytes % (Manual) Seg Neutrophils # Seg Neutrophils # Man Lymphocytes # (Manual) Monocytes # (Manual) APTT Heparin Anti-Xa Level POC ABG pH POC ABG pCO2 POC ABG pO2 Sodium Potassium Chloride Carbon Dioxide BUN Creatinine Glucose POC Glucose 165 H 125 H 182 H Lactic Acid Calcium Phosphorus Total Bilirubin AST ALT Total Creatine Kinase CK-MB (CK-2) Troponin T Total Protein Albumin Prealbumin HDL Cholesterol Salicylates Acetaminophen Crossmatch 10/18/18 10/18/18 10/19/18 16:12 21:02 00:28 WBC RBC Hgb 11.4 L Hct 33.6 L MCV MCHC RDW Plt Count Lymph % (Auto) [place] % (Auto) 14.0 H [place] # 1.2 H Seg Neutrophils % Seg Neuts % (Manual) Lymphocytes % (Manual) Monocytes % (Manual) Seg Neutrophils # Seg Neutrophils # Man Lymphocytes # (Manual) Monocytes # (Manual) APTT Heparin Anti-Xa Level POC ABG pH POC ABG pCO2 POC ABG pO2 Sodium Potassium Chloride Carbon Dioxide BUN Creatinine Glucose POC Glucose 168 H 324 H Lactic Acid Calcium Phosphorus Total Bilirubin AST ALT Total Creatine Kinase CK-MB (CK-2) Troponin T Total Protein Albumin Prealbumin HDL Cholesterol Salicylates Acetaminophen Crossmatch 10/19/18 10/19/18 10/19/18 04:57 04:57 07:32 WBC RBC Hgb 11.7 L Hct 34.0 L MCV MCHC RDW Plt Count Lymph % (Auto) [place] % (Auto) [place] # Seg Neutrophils % Seg Neuts % (Manual) Lymphocytes % (Manual) Monocytes % (Manual) Seg Neutrophils # Seg Neutrophils # Man Lymphocytes # (Manual) Monocytes # (Manual) APTT Heparin Anti-Xa Level POC ABG pH POC ABG pCO2 POC ABG pO2 Sodium Potassium 3.5 L Chloride 108.6 H Carbon Dioxide BUN Creatinine 0.6 L Glucose POC Glucose 159 H Lactic Acid Calcium 7.9 L Phosphorus Total Bilirubin AST ALT Total Creatine Kinase CK-MB (CK-2) Troponin T Total Protein Albumin Prealbumin HDL Cholesterol Salicylates Acetaminophen Crossmatch 10/19/18 10/19/18 10/20/18 16:25 20:59 12:04 WBC RBC Hgb Hct MCV MCHC RDW Plt Count Lymph % (Auto) [place] % (Auto) [place] # Seg Neutrophils % Seg Neuts % (Manual) Lymphocytes % (Manual) Monocytes % (Manual) Seg Neutrophils # Seg Neutrophils # Man Lymphocytes # (Manual) Monocytes # (Manual) APTT Heparin Anti-Xa Level POC ABG pH POC ABG pCO2 POC ABG pO2 Sodium Potassium Chloride Carbon Dioxide BUN Creatinine Glucose POC Glucose 134 H 110 H 338 H Lactic Acid Calcium Phosphorus Total Bilirubin AST ALT Total Creatine Kinase CK-MB (CK-2) Troponin T Total Protein Albumin Prealbumin HDL Cholesterol Salicylates Acetaminophen Crossmatch 10/20/18 10/20/18 10/21/18 17:55 22:07 04:59 WBC RBC Hgb 11.6 L Hct 33.9 L MCV MCHC RDW Plt Count Lymph % (Auto) [place] % (Auto) 9.7 H [place] # 0.9 H Seg Neutrophils % 70.7 H Seg Neuts % (Manual) Lymphocytes % (Manual) Monocytes % (Manual) Seg Neutrophils # Seg Neutrophils # Man Lymphocytes # (Manual) Monocytes # (Manual) APTT Heparin Anti-Xa Level POC ABG pH POC ABG pCO2 POC ABG pO2 Sodium Potassium Chloride Carbon Dioxide BUN Creatinine Glucose POC Glucose 146 H 164 H Lactic Acid Calcium Phosphorus Total Bilirubin AST ALT Total Creatine Kinase CK-MB (CK-2) Troponin T Total Protein Albumin Prealbumin HDL Cholesterol Salicylates Acetaminophen Crossmatch 10/21/18 10/21/18 10/21/18 04:59 07:52 11:39 WBC RBC Hgb Hct MCV MCHC RDW Plt Count Lymph % (Auto) [place] % (Auto) [place] # Seg Neutrophils % Seg Neuts % (Manual) Lymphocytes % (Manual) Monocytes % (Manual) Seg Neutrophils # Seg Neutrophils # Man Lymphocytes # (Manual) Monocytes # (Manual) APTT Heparin Anti-Xa Level POC ABG pH POC ABG pCO2 POC ABG pO2 Sodium Potassium 3.5 L Chloride 107.1 H Carbon Dioxide BUN Creatinine 0.5 L Glucose 158 H POC Glucose 142 H 194 H Lactic Acid Calcium 7.5 L Phosphorus Total Bilirubin AST ALT Total Creatine Kinase CK-MB (CK-2) Troponin T Total Protein 5.6 L Albumin 2.0 L Prealbumin HDL Cholesterol Salicylates Acetaminophen Crossmatch 10/21/18 10/21/18 10/22/18 17:05 20:37 05:38 WBC RBC 3.48 L Hgb 10.8 L Hct 31.7 L MCV MCHC RDW Plt Count 458 H Lymph % (Auto) [place] % (Auto) 10.5 H [place] # Seg Neutrophils % Seg Neuts % (Manual) Lymphocytes % (Manual) Monocytes % (Manual) Seg Neutrophils # Seg Neutrophils # Man Lymphocytes # (Manual) Monocytes # (Manual) APTT Heparin Anti-Xa Level POC ABG pH POC ABG pCO2 POC ABG pO2 Sodium Potassium Chloride Carbon Dioxide BUN Creatinine Glucose POC Glucose 167 H 182 H Lactic Acid Calcium Phosphorus Total Bilirubin AST ALT Total Creatine Kinase CK-MB (CK-2) Troponin T Total Protein Albumin Prealbumin HDL Cholesterol Salicylates Acetaminophen Crossmatch 10/22/18 10/22/18 10/22/18 05:38 07:48 12:08 WBC RBC Hgb Hct MCV MCHC RDW Plt Count Lymph % (Auto) [place] % (Auto) [place] # Seg Neutrophils % Seg Neuts % (Manual) Lymphocytes % (Manual) Monocytes % (Manual) Seg Neutrophils # Seg Neutrophils # Man Lymphocytes # (Manual) Monocytes # (Manual) APTT Heparin Anti-Xa Level POC ABG pH POC ABG pCO2 POC ABG pO2 Sodium Potassium Chloride Carbon Dioxide BUN Creatinine 0.5 L Glucose 146 H POC Glucose 130 H 167 H Lactic Acid Calcium 7.8 L Phosphorus Total Bilirubin AST 41 H ALT Total Creatine Kinase CK-MB (CK-2) Troponin T Total Protein 5.5 L Albumin 2.1 L Prealbumin HDL Cholesterol Salicylates Acetaminophen Crossmatch 10/22/18 10/22/18 10/23/18 16:45 21:42 04:38 WBC RBC Hgb 11.7 L Hct 34.7 L MCV MCHC RDW Plt Count 523 H Lymph % (Auto) [place] % (Auto) 8.7 H [place] # Seg Neutrophils % 71.6 H Seg Neuts % (Manual) Lymphocytes % (Manual) Monocytes % (Manual) Seg Neutrophils # Seg Neutrophils # Man Lymphocytes # (Manual) Monocytes # (Manual) APTT Heparin Anti-Xa Level POC ABG pH POC ABG pCO2 POC ABG pO2 Sodium Potassium Chloride Carbon Dioxide BUN Creatinine Glucose POC Glucose 113 H 134 H Lactic Acid Calcium Phosphorus Total Bilirubin AST ALT Total Creatine Kinase CK-MB (CK-2) Troponin T Total Protein Albumin Prealbumin HDL Cholesterol Salicylates Acetaminophen Crossmatch 10/23/18 10/23/18 10/23/18 04:38 07:56 11:15 WBC RBC Hgb Hct MCV MCHC RDW Plt Count Lymph % (Auto) [place] % (Auto) [place] # Seg Neutrophils % Seg Neuts % (Manual) Lymphocytes % (Manual) Monocytes % (Manual) Seg Neutrophils # Seg Neutrophils # Man Lymphocytes # (Manual) Monocytes # (Manual) APTT Heparin Anti-Xa Level POC ABG pH POC ABG pCO2 POC ABG pO2 Sodium Potassium Chloride Carbon Dioxide BUN 7 L Creatinine 0.5 L Glucose 150 H POC Glucose 123 H 212 H Lactic Acid Calcium 8.0 L Phosphorus Total Bilirubin AST 55 H ALT Total Creatine Kinase CK-MB (CK-2) Troponin T Total Protein 6.2 L Albumin 2.3 L Prealbumin HDL Cholesterol Salicylates Acetaminophen Crossmatch 10/23/18 10/23/18 10/24/18 16:06 22:01 05:56 WBC 11.8 H RBC 3.64 L Hgb 11.2 L Hct 33.4 L MCV MCHC RDW Plt Count 564 H Lymph % (Auto) 11.3 L [place] % (Auto) [place] # Seg Neutrophils % 80.2 H Seg Neuts % (Manual) Lymphocytes % (Manual) Monocytes % (Manual) Seg Neutrophils # 9.4 H Seg Neutrophils # Man Lymphocytes # (Manual) Monocytes # (Manual) APTT Heparin Anti-Xa Level POC ABG pH POC ABG pCO2 POC ABG pO2 Sodium Potassium Chloride Carbon Dioxide BUN Creatinine Glucose POC Glucose 152 H 235 H Lactic Acid Calcium Phosphorus Total Bilirubin AST ALT Total Creatine Kinase CK-MB (CK-2) Troponin T Total Protein Albumin Prealbumin HDL Cholesterol Salicylates Acetaminophen Crossmatch 05/10/24/18 10/24/18 05:56 07:52 11:58 WBC RBC Hgb Hct MCV MCHC RDW Plt Count Lymph % (Auto) [place] % (Auto) [place] # Seg Neutrophils % Seg Neuts % (Manual) Lymphocytes % (Manual) Monocytes % (Manual) Seg Neutrophils # Seg Neutrophils # Man Lymphocytes # (Manual) Monocytes # (Manual) APTT Heparin Anti-Xa Level POC ABG pH POC ABG pCO2 POC ABG pO2 Sodium Potassium Chloride Carbon Dioxide BUN Creatinine 0.5 L Glucose 175 H POC Glucose 156 H 238 H Lactic Acid Calcium 8.0 L Phosphorus Total Bilirubin AST 44 H ALT Total Creatine Kinase CK-MB (CK-2) Troponin T Total Protein 6.2 L Albumin 2.4 L Prealbumin HDL Cholesterol Salicylates Acetaminophen Crossmatch 10/24/18 10/24/18 10/25/18 16:20 22:13 07:53 WBC RBC Hgb Hct MCV MCHC RDW Plt Count Lymph % (Auto) [place] % (Auto) [place] # Seg Neutrophils % Seg Neuts % (Manual) Lymphocytes % (Manual) Monocytes % (Manual) Seg Neutrophils # Seg Neutrophils # Man Lymphocytes # (Manual) Monocytes # (Manual) APTT Heparin Anti-Xa Level POC ABG pH POC ABG pCO2 POC ABG pO2 Sodium Potassium Chloride Carbon Dioxide BUN Creatinine Glucose POC Glucose 60 L 261 H 211 H Lactic Acid Calcium Phosphorus Total Bilirubin AST ALT Total Creatine Kinase CK-MB (CK-2) Troponin T Total Protein Albumin Prealbumin HDL Cholesterol Salicylates Acetaminophen Crossmatch 10/25/18 10/25/18 10/25/18 11:03 16:02 22:45 WBC RBC Hgb Hct MCV MCHC RDW Plt Count Lymph % (Auto) [place] % (Auto) [place] # Seg Neutrophils % Seg Neuts % (Manual) Lymphocytes % (Manual) Monocytes % (Manual) Seg Neutrophils # Seg Neutrophils # Man Lymphocytes # (Manual) Monocytes # (Manual) APTT Heparin Anti-Xa Level POC ABG pH POC ABG pCO2 POC ABG pO2 Sodium Potassium Chloride Carbon Dioxide BUN Creatinine Glucose POC Glucose 137 H 186 H 140 H Lactic Acid Calcium Phosphorus Total Bilirubin AST ALT Total Creatine Kinase CK-MB (CK-2) Troponin T Total Protein Albumin Prealbumin HDL Cholesterol Salicylates Acetaminophen Crossmatch 10/26/18 10/26/18 10/26/18 08:13 10:08 11:28 WBC RBC Hgb Hct MCV MCHC RDW Plt Count Lymph % (Auto) [place] % (Auto) [place] # Seg Neutrophils % Seg Neuts % (Manual) Lymphocytes % (Manual) Monocytes % (Manual) Seg Neutrophils # Seg Neutrophils # Man Lymphocytes # (Manual) Monocytes # (Manual) APTT Heparin Anti-Xa Level POC ABG pH POC ABG pCO2 POC ABG pO2 Sodium Potassium Chloride Carbon Dioxide BUN Creatinine Glucose POC Glucose 144 H 110 H 201 H Lactic Acid Calcium Phosphorus Total Bilirubin AST ALT Total Creatine Kinase CK-MB (CK-2) Troponin T Total Protein Albumin Prealbumin HDL Cholesterol Salicylates Acetaminophen Crossmatch 10/26/18 10/26/18 10/27/18 16:36 22:29 07:34 WBC RBC Hgb Hct MCV MCHC RDW Plt Count Lymph % (Auto) [place] % (Auto) [place] # Seg Neutrophils % Seg Neuts % (Manual) Lymphocytes % (Manual) Monocytes % (Manual) Seg Neutrophils # Seg Neutrophils # Man Lymphocytes # (Manual) Monocytes # (Manual) APTT Heparin Anti-Xa Level POC ABG pH POC ABG pCO2 POC ABG pO2 Sodium Potassium Chloride Carbon Dioxide BUN Creatinine Glucose POC Glucose 147 H 302 H 182 H Lactic Acid Calcium Phosphorus Total Bilirubin AST ALT Total Creatine Kinase CK-MB (CK-2) Troponin T Total Protein Albumin Prealbumin HDL Cholesterol Salicylates Acetaminophen Crossmatch 10/27/18 10/27/18 10/27/18 11:57 13:33 14:55 WBC RBC Hgb Hct MCV MCHC RDW Plt Count 550 H Lymph % (Auto) [place] % (Auto) [place] # Seg Neutrophils % Seg Neuts % (Manual) Lymphocytes % (Manual) Monocytes % (Manual) Seg Neutrophils # Seg Neutrophils # Man Lymphocytes # (Manual) Monocytes # (Manual) APTT Heparin Anti-Xa Level POC ABG pH POC ABG pCO2 POC ABG pO2 Sodium Potassium Chloride Carbon Dioxide BUN Creatinine Glucose POC Glucose 209 H Lactic Acid Calcium Phosphorus Total Bilirubin AST ALT Total Creatine Kinase CK-MB (CK-2) Troponin T Total Protein Albumin Prealbumin HDL Cholesterol Salicylates Acetaminophen Crossmatch See Detail 10/27/18 10/27/18 10/28/18 17:09 21:45 07:45 WBC RBC Hgb Hct MCV MCHC RDW Plt Count Lymph % (Auto) [place] % (Auto) [place] # Seg Neutrophils % Seg Neuts % (Manual) Lymphocytes % (Manual) Monocytes % (Manual) Seg Neutrophils # Seg Neutrophils # Man Lymphocytes # (Manual) Monocytes # (Manual) APTT Heparin Anti-Xa Level POC ABG pH POC ABG pCO2 POC ABG pO2 Sodium Potassium Chloride Carbon Dioxide BUN Creatinine Glucose POC Glucose 233 H 136 H 201 H Lactic Acid Calcium Phosphorus Total Bilirubin AST ALT Total Creatine Kinase CK-MB (CK-2) Troponin T Total Protein Albumin Prealbumin HDL Cholesterol Salicylates Acetaminophen Crossmatch 10/28/18 10/28/18 10/28/18 11:17 16:34 19:51 WBC RBC Hgb Hct MCV MCHC RDW Plt Count Lymph % (Auto) [place] % (Auto) [place] # Seg Neutrophils % Seg Neuts % (Manual) Lymphocytes % (Manual) Monocytes % (Manual) Seg Neutrophils # Seg Neutrophils # Man Lymphocytes # (Manual) Monocytes # (Manual) APTT Heparin Anti-Xa Level < 0.10 L POC ABG pH POC ABG pCO2 POC ABG pO2 Sodium Potassium Chloride Carbon Dioxide BUN Creatinine Glucose POC Glucose 116 H 168 H Lactic Acid Calcium Phosphorus Total Bilirubin AST ALT Total Creatine Kinase CK-MB (CK-2) Troponin T Total Protein Albumin Prealbumin HDL Cholesterol Salicylates Acetaminophen Crossmatch 10/28/18 10/29/18 10/29/18 21:52 07:11 07:11 WBC RBC Hgb Hct MCV MCHC RDW Plt Count 470 H Lymph % (Auto) [place] % (Auto) [place] # Seg Neutrophils % Seg Neuts % (Manual) Lymphocytes % (Manual) Monocytes % (Manual) Seg Neutrophils # Seg Neutrophils # Man Lymphocytes # (Manual) Monocytes # (Manual) APTT Heparin Anti-Xa Level 0.13 L POC ABG pH POC ABG pCO2 POC ABG pO2 Sodium Potassium Chloride Carbon Dioxide BUN Creatinine Glucose POC Glucose 159 H Lactic Acid Calcium Phosphorus Total Bilirubin AST ALT Total Creatine Kinase CK-MB (CK-2) Troponin T Total Protein Albumin Prealbumin HDL Cholesterol Salicylates Acetaminophen Crossmatch 10/29/18 10/29/18 10/29/18 07:11 07:43 11:29 WBC RBC Hgb Hct MCV MCHC RDW Plt Count Lymph % (Auto) [place] % (Auto) [place] # Seg Neutrophils % Seg Neuts % (Manual) Lymphocytes % (Manual) Monocytes % (Manual) Seg Neutrophils # Seg Neutrophils # Man Lymphocytes # (Manual) Monocytes # (Manual) APTT Heparin Anti-Xa Level POC ABG pH POC ABG pCO2 POC ABG pO2 Sodium Potassium Chloride Carbon Dioxide BUN 7 L Creatinine 0.5 L Glucose 122 H POC Glucose 147 H 165 H Lactic Acid Calcium 8.2 L Phosphorus Total Bilirubin AST ALT Total Creatine Kinase CK-MB (CK-2) Troponin T Total Protein Albumin Prealbumin HDL Cholesterol Salicylates Acetaminophen Crossmatch 10/29/18 10/29/18 10/30/18 19:50 22:11 00:11 WBC RBC Hgb Hct MCV MCHC RDW Plt Count Lymph % (Auto) [place] % (Auto) [place] # Seg Neutrophils % Seg Neuts % (Manual) Lymphocytes % (Manual) Monocytes % (Manual) Seg Neutrophils # Seg Neutrophils # Man Lymphocytes # (Manual) Monocytes # (Manual) APTT Heparin Anti-Xa Level 0.25 L POC ABG pH POC ABG pCO2 POC ABG pO2 Sodium Potassium Chloride Carbon Dioxide BUN Creatinine Glucose POC Glucose 166 H 173 H Lactic Acid Calcium Phosphorus Total Bilirubin AST ALT Total Creatine Kinase CK-MB (CK-2) Troponin T Total Protein Albumin Prealbumin HDL Cholesterol Salicylates Acetaminophen Crossmatch 10/30/18 10/30/18 10/30/18 04:22 04:22 07:47 WBC 27.0 H RBC 3.16 L Hgb 10.0 L Hct 28.8 L D MCV MCHC 35 H RDW Plt Count Lymph % (Auto) [place] % (Auto) [place] # Seg Neutrophils % Seg Neuts % (Manual) Lymphocytes % (Manual) 1.5 L Monocytes % (Manual) Seg Neutrophils # Seg Neutrophils # Man 18.6 H Lymphocytes # (Manual) 0.4 L Monocytes # (Manual) APTT Heparin Anti-Xa Level POC ABG pH POC ABG pCO2 POC ABG pO2 Sodium Potassium Chloride Carbon Dioxide BUN Creatinine Glucose 224 H POC Glucose 168 H Lactic Acid Calcium 7.5 L Phosphorus Total Bilirubin AST ALT Total Creatine Kinase CK-MB (CK-2) Troponin T Total Protein Albumin Prealbumin HDL Cholesterol Salicylates Acetaminophen Crossmatch 10/30/18 10/30/18 10/30/18 07:55 11:20 16:41 WBC RBC Hgb Hct MCV MCHC RDW Plt Count Lymph % (Auto) [place] % (Auto) [place] # Seg Neutrophils % Seg Neuts % (Manual) Lymphocytes % (Manual) Monocytes % (Manual) Seg Neutrophils # Seg Neutrophils # Man Lymphocytes # (Manual) Monocytes # (Manual) APTT Heparin Anti-Xa Level < 0.10 L POC ABG pH POC ABG pCO2 POC ABG pO2 Sodium Potassium Chloride Carbon Dioxide BUN Creatinine Glucose POC Glucose 165 H 142 H Lactic Acid Calcium Phosphorus Total Bilirubin AST ALT Total Creatine Kinase CK-MB (CK-2) Troponin T Total Protein Albumin Prealbumin HDL Cholesterol Salicylates Acetaminophen Crossmatch 10/30/18 10/30/18 10/31/18 20:51 21:20 05:21 WBC RBC Hgb 9.0 L Hct 26.6 L MCV MCHC RDW Plt Count Lymph % (Auto) [place] % (Auto) [place] # Seg Neutrophils % Seg Neuts % (Manual) Lymphocytes % (Manual) Monocytes % (Manual) Seg Neutrophils # Seg Neutrophils # Man Lymphocytes # (Manual) Monocytes # (Manual) APTT Heparin Anti-Xa Level < 0.10 L POC ABG pH POC ABG pCO2 POC ABG pO2 Sodium Potassium Chloride Carbon Dioxide BUN Creatinine Glucose POC Glucose 136 H Lactic Acid Calcium Phosphorus Total Bilirubin AST ALT Total Creatine Kinase CK-MB (CK-2) Troponin T Total Protein Albumin Prealbumin HDL Cholesterol Salicylates Acetaminophen Crossmatch 10/31/18 10/31/18 10/31/18 08:07 10:19 12:12 WBC RBC Hgb Hct MCV MCHC RDW Plt Count Lymph % (Auto) [place] % (Auto) [place] # Seg Neutrophils % Seg Neuts % (Manual) Lymphocytes % (Manual) Monocytes % (Manual) Seg Neutrophils # Seg Neutrophils # Man Lymphocytes # (Manual) Monocytes # (Manual) APTT Heparin Anti-Xa Level POC ABG pH POC ABG pCO2 POC ABG pO2 Sodium Potassium Chloride Carbon Dioxide BUN Creatinine Glucose POC Glucose 155 H 194 H Lactic Acid Calcium Phosphorus Total Bilirubin AST ALT Total Creatine Kinase CK-MB (CK-2) Troponin T Total Protein Albumin Prealbumin HDL Cholesterol Salicylates Acetaminophen Crossmatch See Detail 10/31/18 10/31/18 10/31/18 16:07 16:56 21:14 WBC RBC Hgb Hct MCV MCHC RDW Plt Count Lymph % (Auto) [place] % (Auto) [place] # Seg Neutrophils % Seg Neuts % (Manual) Lymphocytes % (Manual) Monocytes % (Manual) Seg Neutrophils # Seg Neutrophils # Man Lymphocytes # (Manual) Monocytes # (Manual) APTT Heparin Anti-Xa Level 1.20 H POC ABG pH POC ABG pCO2 POC ABG pO2 Sodium Potassium Chloride Carbon Dioxide BUN Creatinine Glucose POC Glucose 354 H 234 H Lactic Acid Calcium Phosphorus Total Bilirubin AST ALT Total Creatine Kinase CK-MB (CK-2) Troponin T Total Protein Albumin Prealbumin HDL Cholesterol Salicylates Acetaminophen Crossmatch 11/01/18 11/01/18 11/01/18 00:52 05:52 05:52 WBC 12.5 H RBC 2.95 L Hgb 9.1 L Hct 27.4 L MCV MCHC RDW 15.3 H Plt Count Lymph % (Auto) [place] % (Auto) [place] # Seg Neutrophils % Seg Neuts % (Manual) Lymphocytes % (Manual) Monocytes % (Manual) Seg Neutrophils # Seg Neutrophils # Man Lymphocytes # (Manual) Monocytes # (Manual) APTT Heparin Anti-Xa Level 1.53 H POC ABG pH POC ABG pCO2 POC ABG pO2 Sodium Potassium Chloride Carbon Dioxide BUN Creatinine 0.5 L Glucose 169 H POC Glucose Lactic Acid Calcium 8.3 L Phosphorus Total Bilirubin AST ALT Total Creatine Kinase CK-MB (CK-2) Troponin T Total Protein 6.2 L Albumin 2.3 L Prealbumin HDL Cholesterol Salicylates Acetaminophen Crossmatch 11/01/18 11/01/18 11/01/18 08:17 10:57 11:38 WBC RBC Hgb Hct MCV MCHC RDW Plt Count Lymph % (Auto) [place] % (Auto) [place] # Seg Neutrophils % Seg Neuts % (Manual) Lymphocytes % (Manual) Monocytes % (Manual) Seg Neutrophils # Seg Neutrophils # Man Lymphocytes # (Manual) Monocytes # (Manual) APTT Heparin Anti-Xa Level 1.05 H POC ABG pH POC ABG pCO2 POC ABG pO2 Sodium Potassium Chloride Carbon Dioxide BUN Creatinine Glucose POC Glucose 158 H 133 H Lactic Acid Calcium Phosphorus Total Bilirubin AST ALT Total Creatine Kinase CK-MB (CK-2) Troponin T Total Protein Albumin Prealbumin HDL Cholesterol Salicylates Acetaminophen Crossmatch 11/01/18 11/01/18 11/02/18 17:08 21:23 04:56 WBC RBC 3.02 L Hgb 9.5 L Hct 28.0 L MCV MCHC RDW Plt Count Lymph % (Auto) [place] % (Auto) [place] # Seg Neutrophils % Seg Neuts % (Manual) Lymphocytes % (Manual) Monocytes % (Manual) Seg Neutrophils # Seg Neutrophils # Man Lymphocytes # (Manual) Monocytes # (Manual) APTT Heparin Anti-Xa Level POC ABG pH POC ABG pCO2 POC ABG pO2 Sodium Potassium Chloride Carbon Dioxide BUN Creatinine Glucose POC Glucose 156 H 213 H Lactic Acid Calcium Phosphorus Total Bilirubin AST ALT Total Creatine Kinase CK-MB (CK-2) Troponin T Total Protein Albumin Prealbumin HDL Cholesterol Salicylates Acetaminophen Crossmatch 11/02/18 11/02/18 11/02/18 04:56 08:38 11:23 WBC RBC Hgb Hct MCV MCHC RDW Plt Count Lymph % (Auto) [place] % (Auto) [place] # Seg Neutrophils % Seg Neuts % (Manual) Lymphocytes % (Manual) Monocytes % (Manual) Seg Neutrophils # Seg Neutrophils # Man Lymphocytes # (Manual) Monocytes # (Manual) APTT Heparin Anti-Xa Level POC ABG pH POC ABG pCO2 POC ABG pO2 Sodium Potassium Chloride Carbon Dioxide BUN Creatinine 0.5 L Glucose 141 H POC Glucose 173 H 272 H Lactic Acid Calcium 8.2 L Phosphorus Total Bilirubin AST 43 H ALT Total Creatine Kinase CK-MB (CK-2) Troponin T Total Protein 6.1 L Albumin 2.2 L Prealbumin HDL Cholesterol Salicylates Acetaminophen Crossmatch 11/02/18 11/03/18 11/03/18 22:16 04:38 04:38 WBC 11.6 H RBC 3.20 L Hgb 9.8 L Hct 29.2 L MCV MCHC RDW Plt Count Lymph % (Auto) [place] % (Auto) [place] # Seg Neutrophils % Seg Neuts % (Manual) Lymphocytes % (Manual) Monocytes % (Manual) Seg Neutrophils # Seg Neutrophils # Man Lymphocytes # (Manual) Monocytes # (Manual) APTT Heparin Anti-Xa Level POC ABG pH POC ABG pCO2 POC ABG pO2 Sodium 135 L Potassium Chloride Carbon Dioxide BUN Creatinine 0.5 L Glucose 160 H POC Glucose 182 H Lactic Acid Calcium Phosphorus Total Bilirubin AST 46 H ALT Total Creatine Kinase CK-MB (CK-2) Troponin T Total Protein Albumin 2.3 L Prealbumin HDL Cholesterol Salicylates Acetaminophen Crossmatch 11/03/18 11/03/18 11/03/18 07:52 10:59 18:10 WBC RBC Hgb Hct MCV MCHC RDW Plt Count Lymph % (Auto) [place] % (Auto) [place] # Seg Neutrophils % Seg Neuts % (Manual) Lymphocytes % (Manual) Monocytes % (Manual) Seg Neutrophils # Seg Neutrophils # Man Lymphocytes # (Manual) Monocytes # (Manual) APTT Heparin Anti-Xa Level POC ABG pH POC ABG pCO2 POC ABG pO2 Sodium Potassium Chloride Carbon Dioxide BUN Creatinine Glucose POC Glucose 180 H 159 H 169 H Lactic Acid Calcium Phosphorus Total Bilirubin AST ALT Total Creatine Kinase CK-MB (CK-2) Troponin T Total Protein Albumin Prealbumin HDL Cholesterol Salicylates Acetaminophen Crossmatch 11/04/18 11/04/18 11/04/18 07:46 11:42 15:45 WBC 11.5 H RBC 3.41 L Hgb 10.4 L Hct 30.8 L MCV MCHC RDW Plt Count Lymph % (Auto) [place] % (Auto) [place] # Seg Neutrophils % Seg Neuts % (Manual) Lymphocytes % (Manual) Monocytes % (Manual) Seg Neutrophils # Seg Neutrophils # Man Lymphocytes # (Manual) Monocytes # (Manual) APTT Heparin Anti-Xa Level POC ABG pH POC ABG pCO2 POC ABG pO2 Sodium Potassium Chloride Carbon Dioxide BUN Creatinine Glucose POC Glucose 160 H 149 H Lactic Acid Calcium Phosphorus Total Bilirubin AST ALT Total Creatine Kinase CK-MB (CK-2) Troponin T Total Protein Albumin Prealbumin HDL Cholesterol Salicylates Acetaminophen Crossmatch 11/04/18 11/04/18 11/04/18 15:45 15:45 16:41 WBC RBC Hgb Hct MCV MCHC RDW Plt Count Lymph % (Auto) [place] % (Auto) [place] # Seg Neutrophils % Seg Neuts % (Manual) Lymphocytes % (Manual) Monocytes % (Manual) Seg Neutrophils # Seg Neutrophils # Man Lymphocytes # (Manual) Monocytes # (Manual) APTT Heparin Anti-Xa Level POC ABG pH POC ABG pCO2 POC ABG pO2 Sodium 133 L Potassium Chloride 95.6 L Carbon Dioxide BUN Creatinine 0.5 L Glucose 163 H POC Glucose 157 H Lactic Acid Calcium Phosphorus Total Bilirubin AST ALT Total Creatine Kinase CK-MB (CK-2) Troponin T Total Protein Albumin 2.6 L Prealbumin 0.073 L HDL Cholesterol Salicylates Acetaminophen Crossmatch 11/04/18 11/05/18 11/05/18 21:59 08:51 12:13 WBC RBC Hgb Hct MCV MCHC RDW Plt Count Lymph % (Auto) [place] % (Auto) [place] # Seg Neutrophils % Seg Neuts % (Manual) Lymphocytes % (Manual) Monocytes % (Manual) Seg Neutrophils # Seg Neutrophils # Man Lymphocytes # (Manual) Monocytes # (Manual) APTT Heparin Anti-Xa Level POC ABG pH POC ABG pCO2 POC ABG pO2 Sodium Potassium Chloride Carbon Dioxide BUN Creatinine Glucose POC Glucose 195 H 187 H 149 H Lactic Acid Calcium Phosphorus Total Bilirubin AST ALT Total Creatine Kinase CK-MB (CK-2) Troponin T Total Protein Albumin Prealbumin HDL Cholesterol Salicylates Acetaminophen Crossmatch 11/05/18 11/05/18 11/06/18 17:15 20:37 07:00 WBC RBC 3.48 L Hgb 11.2 L Hct 31.8 L MCV MCHC 35 H RDW Plt Count Lymph % (Auto) [place] % (Auto) [place] # Seg Neutrophils % Seg Neuts % (Manual) Lymphocytes % (Manual) Monocytes % (Manual) Seg Neutrophils # Seg Neutrophils # Man Lymphocytes # (Manual) Monocytes # (Manual) APTT Heparin Anti-Xa Level POC ABG pH POC ABG pCO2 POC ABG pO2 Sodium Potassium Chloride Carbon Dioxide BUN Creatinine Glucose POC Glucose 281 H 203 H Lactic Acid Calcium Phosphorus Total Bilirubin AST ALT Total Creatine Kinase CK-MB (CK-2) Troponin T Total Protein Albumin Prealbumin HDL Cholesterol Salicylates Acetaminophen Crossmatch 11/06/18 11/06/18 11/06/18 07:00 07:31 12:45 WBC RBC Hgb Hct MCV MCHC RDW Plt Count Lymph % (Auto) [place] % (Auto) [place] # Seg Neutrophils % Seg Neuts % (Manual) Lymphocytes % (Manual) Monocytes % (Manual) Seg Neutrophils # Seg Neutrophils # Man Lymphocytes # (Manual) Monocytes # (Manual) APTT Heparin Anti-Xa Level POC ABG pH POC ABG pCO2 POC ABG pO2 Sodium 135 L Potassium Chloride 97.3 L Carbon Dioxide BUN Creatinine 0.5 L Glucose 163 H POC Glucose 215 H 183 H Lactic Acid Calcium Phosphorus Total Bilirubin AST ALT Total Creatine Kinase CK-MB (CK-2) Troponin T Total Protein Albumin Prealbumin HDL Cholesterol Salicylates Acetaminophen Crossmatch 11/06/18 11/06/18 11/07/18 17:47 21:05 07:42 WBC RBC Hgb Hct MCV MCHC RDW Plt Count Lymph % (Auto) [place] % (Auto) [place] # Seg Neutrophils % Seg Neuts % (Manual) Lymphocytes % (Manual) Monocytes % (Manual) Seg Neutrophils # Seg Neutrophils # Man Lymphocytes # (Manual) Monocytes # (Manual) APTT Heparin Anti-Xa Level POC ABG pH POC ABG pCO2 POC ABG pO2 Sodium Potassium Chloride Carbon Dioxide BUN Creatinine Glucose POC Glucose 141 H 223 H 168 H Lactic Acid Calcium Phosphorus Total Bilirubin AST ALT Total Creatine Kinase CK-MB (CK-2) Troponin T Total Protein Albumin Prealbumin HDL Cholesterol Salicylates Acetaminophen Crossmatch 11/07/18 11/07/18 11/07/18 11:37 16:21 21:39 WBC RBC Hgb Hct MCV MCHC RDW Plt Count Lymph % (Auto) [place] % (Auto) [place] # Seg Neutrophils % Seg Neuts % (Manual) Lymphocytes % (Manual) Monocytes % (Manual) Seg Neutrophils # Seg Neutrophils # Man Lymphocytes # (Manual) Monocytes # (Manual) APTT Heparin Anti-Xa Level POC ABG pH POC ABG pCO2 POC ABG pO2 Sodium Potassium Chloride Carbon Dioxide BUN Creatinine Glucose POC Glucose 120 H 169 H 127 H Lactic Acid Calcium Phosphorus Total Bilirubin AST ALT Total Creatine Kinase CK-MB (CK-2) Troponin T Total Protein Albumin Prealbumin HDL Cholesterol Salicylates Acetaminophen Crossmatch 11/08/18 11/08/18 11/08/18 11:48 16:32 16:32 WBC 11.3 H RBC 3.40 L Hgb 10.3 L Hct 30.5 L MCV MCHC RDW Plt Count 465 H Lymph % (Auto) [place] % (Auto) 9.3 H [place] # 1.0 H Seg Neutrophils % 73.1 H Seg Neuts % (Manual) Lymphocytes % (Manual) Monocytes % (Manual) Seg Neutrophils # 8.3 H Seg Neutrophils # Man Lymphocytes # (Manual) Monocytes # (Manual) APTT Heparin Anti-Xa Level POC ABG pH POC ABG pCO2 POC ABG pO2 Sodium 133 L Potassium Chloride 96.7 L Carbon Dioxide BUN Creatinine 0.4 L Glucose 187 H POC Glucose 144 H Lactic Acid Calcium Phosphorus Total Bilirubin AST ALT Total Creatine Kinase CK-MB (CK-2) Troponin T Total Protein Albumin Prealbumin HDL Cholesterol Salicylates Acetaminophen Crossmatch 11/08/18 11/09/18 11/09/18 16:52 01:48 06:06 WBC 12.7 H RBC 3.47 L Hgb 10.5 L Hct 31.5 L MCV MCHC RDW Plt Count 452 H Lymph % (Auto) [place] % (Auto) 10.9 H [place] # 1.4 H Seg Neutrophils % Seg Neuts % (Manual) Lymphocytes % (Manual) Monocytes % (Manual) Seg Neutrophils # 8.9 H Seg Neutrophils # Man Lymphocytes # (Manual) Monocytes # (Manual) APTT Heparin Anti-Xa Level POC ABG pH POC ABG pCO2 POC ABG pO2 Sodium Potassium Chloride Carbon Dioxide BUN Creatinine Glucose POC Glucose 220 H 146 H Lactic Acid Calcium Phosphorus Total Bilirubin AST ALT Total Creatine Kinase CK-MB (CK-2) Troponin T Total Protein Albumin Prealbumin HDL Cholesterol Salicylates Acetaminophen Crossmatch 11/09/18 11/09/18 11/09/18 06:06 07:36 12:28 WBC RBC Hgb Hct MCV MCHC RDW Plt Count Lymph % (Auto) [place] % (Auto) [place] # Seg Neutrophils % Seg Neuts % (Manual) Lymphocytes % (Manual) Monocytes % (Manual) Seg Neutrophils # Seg Neutrophils # Man Lymphocytes # (Manual) Monocytes # (Manual) APTT Heparin Anti-Xa Level POC ABG pH POC ABG pCO2 POC ABG pO2 Sodium 129 L Potassium Chloride 94.5 L Carbon Dioxide BUN Creatinine 0.4 L Glucose 136 H POC Glucose 133 H 193 H Lactic Acid Calcium Phosphorus Total Bilirubin AST ALT Total Creatine Kinase CK-MB (CK-2) Troponin T Total Protein Albumin Prealbumin HDL Cholesterol Salicylates Acetaminophen Crossmatch 11/09/18 11/10/18 11/10/18 21:14 06:27 06:27 WBC RBC 3.50 L Hgb 10.7 L Hct 31.2 L MCV MCHC RDW Plt Count 496 H Lymph % (Auto) [place] % (Auto) 11.8 H [place] # 1.2 H Seg Neutrophils % Seg Neuts % (Manual) Lymphocytes % (Manual) Monocytes % (Manual) Seg Neutrophils # Seg Neutrophils # Man Lymphocytes # (Manual) Monocytes # (Manual) APTT Heparin Anti-Xa Level POC ABG pH POC ABG pCO2 POC ABG pO2 Sodium 135 L Potassium Chloride 97.2 L Carbon Dioxide BUN Creatinine 0.4 L Glucose 137 H POC Glucose 125 H Lactic Acid Calcium Phosphorus Total Bilirubin AST ALT Total Creatine Kinase CK-MB (CK-2) Troponin T Total Protein Albumin Prealbumin HDL Cholesterol Salicylates Acetaminophen Crossmatch 11/10/18 09:01 WBC RBC Hgb Hct MCV MCHC RDW Plt Count Lymph % (Auto) [place] % (Auto) [place] # Seg Neutrophils % Seg Neuts % (Manual) Lymphocytes % (Manual) Monocytes % (Manual) Seg Neutrophils # Seg Neutrophils # Man Lymphocytes # (Manual) Monocytes # (Manual) APTT Heparin Anti-Xa Level POC ABG pH POC ABG pCO2 POC ABG pO2 Sodium Potassium Chloride Carbon Dioxide BUN Creatinine Glucose POC Glucose 145 H Lactic Acid Calcium Phosphorus Total Bilirubin AST ALT Total Creatine Kinase CK-MB (CK-2) Troponin T Total Protein Albumin Prealbumin HDL Cholesterol Salicylates Acetaminophen Crossmatch Allied health notes reviewed: nursing
[2018-11-10] MEDS: SUBOXONE 2 MG-0.5 MG SL SCH (16:38)
[2018-11-10] MEDS: XANAX PO PRN (22:35)
[2018-11-11] MEDS: DUONEB *Not for PRN Use IH SCH ×3 (08:09→20:00)
--- NOTE | 2018-11-11 09:14 | Progress Note ---
Assessment and Plan Right [id number] amputation on Monday. The patient will need acute versus long-term rehabilitation. Subjective Date of service: 11/11/18 Principal diagnosis: Ac hypercapnic hypoxemic Resp failure; Drug OD; AE-COPD; NINOSKA; Seizures Interval history: Patient stable in appearance. 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 The patient will need right [id number] amputation which is scheduled for tomorrow. He complains of pain and drainage from the stump site with eschar on the lateral aspect of the stump. The erythema is noted as well. Patient's white count is within normal limits. Objective - Constitutional Vitals: Vital Signs - 12hr 11/10/18 11/11/18 11/11/18 22:30 00:01 06:26 Temperature 98.0 F 98.9 F Pulse Rate 71 70 66 Pulse Rate [ Throughout] Respiratory 16 16 Rate Respiratory Rate [ Throughout] Blood Pressure 105/52 108/53 111/66 O2 Sat by Pulse 90 93 Oximetry 11/11/18 11/11/18 11/11/18 08:00 08:09 08:10 Temperature Pulse Rate Pulse Rate [ 79 79 Throughout] Respiratory Rate Respiratory 18 19 Rate [ Throughout] Blood Pressure O2 Sat by Pulse 93 Oximetry General appearance: Present: no acute distress - EENT Eyes: EOM intact ENT: hearing intact - Neck Neck: supple, normal ROM - Respiratory Respiratory effort: normal Extremities: abnormal - Gastrointestinal General gastrointestinal: Present: deferred Rectal Exam: deferred - Genitourinary Male genitourinary: deferred - Psychiatric Psychiatric: cooperative - Labs CBC & Chem 7: 11/10/18 06:27 11/10/18 06:27 Labs: Abnormal lab results 11/10/18 11/10/18 11/11/18 Range/Units 17:47 22:10 07:44 POC Glucose 179 H 178 H 112 H (70-105) Medications & Allergies - Medications Allergies/Adverse Reactions: Allergies No Known Allergies Allergy (Verified 10/31/14 11:20) Home Medications: Home Medications Medication Instructions Recorded Confirmed Last Taken Type Gabapentin [Neurontin] 90 mg PO Q8HR 04/22/15 11/01/18 04/21/15 History ALPRAZolam [Xanax TAB] 1 mg PO TID PRN #30 tablet 03/28/16 11/01/18 Unknown Rx Albuterol Sulfate [Ventolin HFA] 2 puff IH Q4H PRN #1 hfa.aer.ad 03/28/16 11/01/18 Unknown Rx Ciprofloxacin HCl [Ciprofloxacin 500 mg PO Q12HR #30 tab 03/28/16 11/01/18 Unknown Rx TAB] Citalopram [celeXA] 10 mg PO QDAY #30 tablet 03/28/16 11/01/18 Unknown Rx Nicotine [Habitrol] 14 mg TD QDAY #30 patch 03/28/16 11/01/18 Unknown Rx Sitagliptin Phos/Metformin HCl 1 tab PO QDAY #30 tbmp.24hr 03/28/16 11/01/18 Unknown Rx [Janumet XR 100-1,000 mg] oxyCODONE /ACETAMINOPHEN [Percocet 1 tab PO Q6H PRN #60 tablet 03/28/16 11/01/18 Unknown Rx 5/325 mg] Active Medications: Generic Name Dose Route Start Last Admin Trade Name Freq PRN Reason Stop Dose Admin Acetaminophen 650 mg 10/11/18 04:04 10/21/18 22:21 Tylenol PO 650 mg Q4H PRN Administration Pain MILD(1-3)/Fever >100.5/HOLLINS Albuterol 2.5 mg 10/19/18 00:54 Proventil IH Q4HRT PRN Shortness Of Breath Albuterol/Ipratropium 1 ampul 10/19/18 08:00 11/11/18 08:09 Duoneb *Not For Prn Use* IH 1 ampul TIDRT ISAAC Administration Alprazolam 1 mg 10/20/18 13:06 11/10/18 22:35 Xanax PO 1 mg TID PRN Administration Anxiety Apixaban 5 mg 11/08/18 22:00 11/10/18 22:26 Eliquis PO 5 mg Q12HR ISAAC Administration Protocol Aspirin 81 mg 11/01/18 16:00 11/10/18 11:53 Halfprin Ec PO 81 mg QDAY ISAAC Administration Buprenorphine HCl 2 each 11/05/18 10:00 11/10/18 16:38 Suboxone 2 Mg-0.5 Mg SL 2 each QDAY ISAAC Administration Citalopram Hydrobromide 20 mg 11/05/18 10:00 11/10/18 11:53 Celexa PO 20 mg QDAY ISAAC Administration Dextrose 0 ml 10/11/18 03:57 10/11/18 10:18 D50w (25gm) Syringe IV 10 ml PRN PRN Administration Hypoglycemia Docusate Sodium 100 mg 11/04/18 22:00 11/10/18 22:26 Colace PO 100 mg BID ISAAC Administration Famotidine 20 mg 10/15/18 10:00 11/10/18 22:26 Pepcid PO 20 mg BID ISAAC Administration Insulin Human Regular 0 units 10/17/18 11:30 11/10/18 22:27 Humulin R SUB-Q 3 units ACHS ISAAC Administration Protocol Metoprolol Tartrate 25 mg 10/18/18 22:00 11/10/18 22:30 Lopressor PO Not Given BID [facility] Metoprolol Tartrate 2.5 mg 10/18/18 18:51 10/18/18 22:19 Lopressor IV 2.5 mg Q6H PRN Administration Tachyarrhythmias Naloxone HCl 0.1 mg 10/29/18 16:03 Narcan 0.4 Mg/1 Ml IV Q2MIN PRN Res Rate </= 8 or 02 SAT < 92% Ondansetron HCl 4 mg 10/11/18 04:04 11/01/18 22:12 Zofran IV 4 mg Q8H PRN Administration Nausea And Vomiting Oxycodone/Acetaminophen 1 tab 10/18/18 13:45 11/10/18 20:19 Percocet 5/325 PO 1 tab Q6H PRN Administration Pain, Moderate (4-6)
[2018-11-11] MEDS: HumuLIN R SUB-Q SCH ×4 (09:53→23:52)
--- NOTE | 2018-11-11 10:20 | Progress Note ---
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 followed by revascularization right leg on 10/31/18. Vascular surgery feels the patient will need evaluation of his devascularized skin along the lateral aspect of his left stump. Left below-knee amputation stump site is looking marginal. It does not appear to be salvageable and will require above-knee amputation conversion on Monday. -Acute/subacute right CVA, Initial CT head, no acute finding, 10/13/18 found to have left-sided weakness, MRI brain showed numerous acute/subacute multilobar infarcts involving the cerebrum and cerebellum including Hemorrhagic transformation of the right frontal and biparietal lobes, was Not a candidate for tPA, monitor off aspirin per teleneurology, QUIQUE ; no thrombus or shunt, -Severe sepsis with shock; resolved. Probably due to LLL aspiration pneumonia, completed total 7 days of antibiotics, off vasopressors -Paroxysmal atrial fibrillation. on Eliquis Cardiology is following -LLL pneumonia: completed treatment -Acute respiratory failure with hypoxia and hypercapnia: Requiring intubation, s/p extubation, treat with nebs and supplemental O2 as needed -DKA, resolved: cont SSI for now, diabetic diet -Acute toxic/metabolic encephalopathy, improved -Seizure disorder; seizure precautions, no new episodes of seizure, Ativan when necessary, neurology did not recommend antiepileptic medications -Elevated troponin/NSTEMI type 2, Echocardiogram for further evaluation - Ef 25- 30%, Cardiology consulted, medical Mx for now, -Acute systolic CHF, Ef 25-30%, anti-failure medications, Cardiology is foll owing -Chronic hypotension. Consider Midodrine. -ARF. Etiology secondary to ATN and vasomotor nephropathy, poa, resolved -Hyperkalemia, resolved -Abnormal LFT, Probably due to sepsis, resolving and chronic hepatitis C virus infection, Abdominal US showed no sign of cirrhosis: monitor cmp -Anemia, appears acute on chronic AOCD: monitor closely on iv heparin drip -Severe protein calorie malnutrition, bmi 14.8; nutrition supplements, Dietitian consulted -DVT prophylaxis with Eliquis -GI prophylaxis with famotidine -Tobacco abuse. Patient with a long smoking history of one pack per day or more since age 9. Patient was counseled on smoking cessation. -Disposition: continue inpatient care. Possible rehab vs Subacute rehab placement==>Physical therapy recommended Subacute Rehab but re-evaluation pending. History Interval history: Patient is a 58 yo man with a history of COPD, DM, hypertension, asthma, peripheral neuropathy, chronic hepatitis C virus, panic attack. anxiety disorder, polysubstance abuse including alcohol, cocaine and heroin who presented to [facility] ED on 10/11/18 with AMS. He was diagnosis with septic shock due to pneumonia, placed on abx and vasopressors. He was also diagnosis with DKA/respiratory failure/Status epilepticus/ARF. Patient s/p left BKA, right open thrombectomy and aortic stenting and bilateral common iliac artery stenting but right EIA occluded requiring another open thrombectomy and stenting of the right iliac system. Vascular surgery felt patient will need evaluation of his devascularized skin along the lateral aspect of his left stump. Left below-knee amputation stump site is looking marginal and is not salvageable and will require above-knee amputation conversion on Monday. No new issues overnight. Patient is asking for an increase in his pain medications. Hospitalist Physical - Constitutional Vitals: Temp Pulse Resp BP Pulse Ox 98.9 F 79 19 111/66 93 11/11/18 06:26 11/11/18 08:09 11/11/18 08:09 11/11/18 06:26 11/11/18 08:10 General appearance: Present: no acute distress - EENT Eyes: Present: PERRL, EOM intact ENT: hearing intact, clear oral mucosa, dentition normal - Neck Neck: Present: supple, normal ROM - Respiratory Respiratory effort: normal Respiratory: bilateral: CTA - Cardiovascular Rhythm: regular Heart Sounds: Present: S1 & S2. Absent: gallop, rub - Extremities Extremities: No edema, Full ROM Extremity abnormal: other (necrotic ischemic right lower extremity, left BKA) - Abdominal General gastrointestinal: soft, non-tender, non-distended, normal bowel sounds - Integumentary Integumentary: Present: clear, warm, dry - Neurologic Neurologic: CNII-XII intact, moves all extremities Results - Labs CBC & Chem 7: 11/10/18 06:27 11/10/18 06:27 Labs: Laboratory Last Values WBC 10.6 K/mm3 (4.5-11.0) 11/10/18 06:27 RBC 3.50 M/mm3 (3.65-5.03) L 11/10/18 06:27 Hgb 10.7 gm/dl (11.8-15.2) L 11/10/18 06:27 Hct 31.2 % (35.5-45.6) L 11/10/18 06:27 MCV 89 fl (84-94) 11/10/18 06:27 MCH 31 pg (28-32) 11/10/18 06:27 MCHC 34 % (32-34) 11/10/18 06:27 RDW 14.1 % (13.2-15.2) 11/10/18 06:27 Plt Count 496 K/mm3 (140-440) H 11/10/18 06:27 Lymph % (Auto) 16.3 % (13.4-35.0) 11/10/18 06:27 [place] % (Auto) 11.8 % (0.0-7.3) H 11/10/18 06:27 Eos % (Auto) 1.3 % (0.0-4.3) 11/10/18 06:27 Baso % (Auto) 0.8 % (0.0-1.8) 11/10/18 06:27 Lymph # 1.7 K/mm3 (1.2-5.4) 11/10/18 06:27 [place] # 1.2 K/mm3 (0.0-0.8) H 11/10/18 06:27 Eos # 0.1 K/mm3 (0.0-0.4) 11/10/18 06:27 Baso # 0.1 K/mm3 (0.0-0.1) 11/10/18 06:27 Add Manual Diff Complete 10/30/18 04:22 Total Counted 200 10/30/18 04:22 Seg Neutrophils % 69.8 % (40.0-70.0) 11/10/18 06:27 Seg Neuts % (Manual) 69.0 % (40.0-70.0) 10/30/18 04:22 26.0 % 10/30/18 04:22 1.5 % (13.4-35.0) L 10/30/18 04:22 Reactive Lymphs % (Man) 0 % 10/30/18 04:22 2.0 % (0.0-7.3) 10/30/18 04:22 0 % (0.0-4.3) 10/30/18 04:22 0 % (0.0-1.8) 10/30/18 04:22 1.0 % 10/30/18 04:22 0.5 % 10/30/18 04:22 0 % 10/30/18 04:22 0 % 10/30/18 04:22 Nucleated RBC % Not Reportable 10/30/18 04:22 Seg Neutrophils # 7.4 K/mm3 (1.8-7.7) 11/10/18 06:27 Seg Neutrophils # Man 18.6 K/mm3 (1.8-7.7) H 10/30/18 04:22 Band Neutrophils # 7.0 K/mm3 10/30/18 04:22 0.4 K/mm3 (1.2-5.4) L 10/30/18 04:22 Abs React Lymphs (Man) 0.0 K/mm3 10/30/18 04:22 0.5 K/mm3 (0.0-0.8) 10/30/18 04:22 0.0 K/mm3 (0.0-0.4) 10/30/18 04:22 0.0 K/mm3 (0.0-0.1) 10/30/18 04:22 0.3 K/mm3 10/30/18 04:22 0.1 K/mm3 10/30/18 04:22 0.0 K/mm3 10/30/18 04:22 Blast Cells # 0.0 K/mm3 10/30/18 04:22 Pathologist Review 10/11/18 00:16 WBC Morphology Not Reportable 10/30/18 04:22 WBC Morphology TNR 10/30/18 04:22 Hypersegmented Neuts Not Reportable 10/30/18 04:22 Hyposegmented Neuts Not Reportable 10/30/18 04:22 Hypogranular Neuts Not Reportable 10/30/18 04:22 Not Reportable 10/30/18 04:22 Not Reportable 10/30/18 04:22 Not Reportable 10/30/18 04:22 Not Reportable 10/30/18 04:22 Not Reportable 10/30/18 04:22 Not Reportable 10/30/18 04:22 Consistent w auto 10/30/18 04:22 Not Reportable 10/30/18 04:22 Plt Clumps, EDTA Not Reportable 10/30/18 04:22 Not Reportable 10/30/18 04:22 Not Reportable 10/30/18 04:22 Not Reportable 10/30/18 04:22 Plt Morphology Comment Not Reportable 10/30/18 04:22 RBC Morphology Not Reportable 10/30/18 04:22 Dimorphic RBCs Not Reportable 10/30/18 04:22 Not Reportable 10/30/18 04:22 Not Reportable 10/30/18 04:22 Not Reportable 10/30/18 04:22 Not Reportable 10/30/18 04:22 Not Reportable 10/30/18 04:22 Not Reportable 10/30/18 04:22 Not Reportable 10/30/18 04:22 Not Reportable 10/30/18 04:22 Not Reportable 10/30/18 04:22 Not Reportable 10/30/18 04:22 Not Reportable 10/30/18 04:22 Not Reportable 10/30/18 04:22 Not Reportable 10/30/18 04:22 Not Reportable 10/30/18 04:22 Not Reportable 10/30/18 04:22 Not Reportable 10/30/18 04:22 Not Reportable 10/30/18 04:22 Not Reportable 10/30/18 04:22 Not Reportable 10/30/18 04:22 Acanthocytes (Spur) Not Reportable 10/30/18 04:22 Rouleaux Not Reportable 10/30/18 04:22 Not Reportable 10/30/18 04:22 Not Reportable 10/30/18 04:22 Not Reportable 10/30/18 04:22 Not Reportable 10/30/18 04:22 Hem Pathologist Commnt No 10/30/18 04:22 PT 13.9 Sec. (12.2-14.9) 10/29/18 07:11 INR 1.01 (0.87-1.13) 10/29/18 07:11 APTT 30.3 Sec. (24.2-36.6) 10/27/18 13:33 Heparin Anti-Xa Level 1.05 U.I./ml (0.3-0.7) H 11/01/18 11:38 Heparin Anti-Xa, Unfract Negative (Negative) 10/15/18 12:00 POC ABG pH 7.393 (7.35-7.45) 10/16/18 12:51 POC ABG pCO2 48.9 (35-45) H 10/16/18 12:51 POC ABG pO2 92 (80-105) 10/16/18 12:51 POC ABG HCO3 29.8 (22-26 mml/L) 10/16/18 12:51 POC ABG Total CO2 31 (23-27mmol/L) 10/16/18 12:51 POC ABG O2 Sat 97 10/16/18 12:51 POC ABG Base Excess 5 ((-2) - (+3)mmol/L) 10/16/18 12:51 35 % 10/16/18 12:51 Sodium 135 mmol/L (137-145) L 11/10/18 06:27 Potassium 4.1 mmol/L (3.6-5.0) 11/10/18 06:27 Chloride 97.2 mmol/L (98-107) L 11/10/18 06:27 Carbon Dioxide 27 mmol/L (22-30) 11/10/18 06:27 15 mmol/L 11/10/18 06:27 BUN 11 mg/dL (9-20) 11/10/18 06:27 0.4 mg/dL (0.8-1.5) L 11/10/18 06:27 Estimated GFR > 60 ml/min 11/10/18 06:27 28 % 11/10/18 06:27 Glucose 137 mg/dL (75-100) H 11/10/18 06:27 POC Glucose 112 (70-105) H 11/11/18 07:44 Lactic Acid 2.70 mmol/L (0.7-2.0) H* 10/11/18 12:30 Calcium 8.7 mg/dL (8.4-10.2) 11/10/18 06:27 Phosphorus 2.80 mg/dL (2.5-4.5) 10/21/18 04:59 Magnesium 1.70 mg/dL (1.7-2.3) 11/01/18 05:52 0.70 mg/dL (0.1-1.2) 11/04/18 15:45 AST 38 units/L (5-40) 11/04/18 15:45 ALT 23 units/L (7-56) 11/04/18 15:45 54 units/L (35-129) 11/04/18 15:45 3647 units/L (55-170) H 10/12/18 04:04 CK-MB (CK-2) 48.3 ng/mL (0.0-4.0) H 10/12/18 04:04 CK-MB (CK-2) Rel Index 1.3 (0-4) 10/12/18 04:04 0.816 ng/mL (0.00-0.029) H* 10/13/18 16:15 6.8 g/dL (6.3-8.2) 11/04/18 15:45 2.6 g/dL (3.9-5) L 11/04/18 15:45 0.6 % 11/04/18 15:45 0.073 g/L (0.200-0.400) L 11/04/18 15:45 Triglycerides 87 mg/dL (2-149) 10/11/18 00:16 Cholesterol 73 mg/dL (50-199) 10/11/18 00:16 51 mg/dL (50-130) 10/11/18 00:16 19 mg/dL (40-59) L 10/11/18 00:16 3.84 % 10/11/18 00:16 See scanned report 10/15/18 12:00 Yellow (Yellow) 10/11/18 01:42 Cloudy (Clear) 10/11/18 01:42 6.0 (5.0-7.0) 10/11/18 01:42 Ur Specific [place] 1.011 (1.003-1.030) 10/11/18 01:42 100 mg/dl mg/dL (Negative) 10/11/18 01:42 >=500 mg/dL (Negative) 10/11/18 01:42 Neg mg/dL (Negative) 10/11/18 01:42 Mod (Negative) 10/11/18 01:42 Neg (Negative) 10/11/18 01:42 Neg (Negative) 10/11/18 01:42 4.0 mg/dL (<2.0) 10/11/18 01:42 Ur Leukocyte Esterase Neg (Negative) 10/11/18 01:42 5.0 /HPF (0.0-6.0) 10/11/18 01:42 2.0 /HPF (0.0-6.0) 10/11/18 01:42 U Epithel Cells (Auto) < 1.0 /HPF (0-13.0) 10/11/18 01:42 Amorphous Crystals 1+ 10/11/18 01:42 Few /HPF 10/11/18 01:42 2+ /HPF (INSTRUCTOR ADJUNCT SURGICAL TECHNICIAN) 10/11/18 01:42 Vancomycin Trough 8.3 ug/mL (5.0-20.0) 10/13/18 05:40 Salicylates < 0.3 mg/dL (2.8-20.0) L 10/11/18 00:16 Presumptive positive 10/11/18 01:42 Presumptive negative 10/11/18 01:42 Acetaminophen < 5.0 ug/mL (10.0-30.0) L 10/11/18 00:16 Ur Barbiturates Screen Presumptive negative 10/11/18 01:42 Ur Phencyclidine Scrn Presumptive negative 10/11/18 01:42 Ur Amphetamines Screen Presumptive positive 10/11/18 01:42 U Benzodiazepines Scrn Presumptive positive 10/11/18 01:42 Presumptive negative 10/11/18 01:42 U Marijuana (THC) Screen Presumptive negative 10/11/18 01:42 Disclamer 10/11/18 01:42 Plasma/Serum Alcohol < 0.01 % (0-0.07) 10/11/18 00:16 Heparin-induced Plt Ab Negative (Negative) 10/15/18 12:00 UF Heparin High Dose 0 % Release 10/15/18 12:00 AURELIO UFH Low Dose 0.1 0 % Release 10/15/18 12:00 AURELIO UFH Low Dose 0.5 0 % Release 10/15/18 12:00 Blood Type O POSITIVE 10/31/18 08:07 Antibody Screen Positive 10/31/18 08:07 Antibody Identification Negative 10/31/18 08:07 Direct Antiglob Test Negative 10/31/18 08:07 SHASHANK, Poly Interpret Negative 10/31/18 08:07 Crossmatch See Detail 10/31/18 08:07 Active Medications - Current Medications Current Medications: Generic Name Dose Route Start Last Admin Trade Name Freq PRN Reason Stop Dose Admin Acetaminophen 650 mg 10/11/18 04:04 10/21/18 22:21 Tylenol PO 650 mg Q4H PRN Administration Pain MILD(1-3)/Fever >100.5/HOLLINS Albuterol 2.5 mg 10/19/18 00:54 Proventil IH Q4HRT PRN Shortness Of Breath Albuterol/Ipratropium 1 ampul 10/19/18 08:00 11/11/18 08:09 Duoneb *Not For Prn Use* IH 1 ampul TIDRT ISAAC Administration Alprazolam 1 mg 10/20/18 13:06 11/10/18 22:35 Xanax PO 1 mg TID PRN Administration Anxiety Apixaban 5 mg 11/08/18 22:00 11/10/18 22:26 Eliquis PO 5 mg Q12HR ISAAC Administration Protocol Aspirin 81 mg 11/01/18 16:00 11/10/18 11:53 Halfprin Ec PO 81 mg QDAY ISAAC Administration Buprenorphine HCl 2 each 11/05/18 10:00 11/10/18 16:38 Suboxone 2 Mg-0.5 Mg SL 2 each QDAY ISAAC Administration Citalopram Hydrobromide 20 mg 11/05/18 10:00 11/10/18 11:53 Celexa PO 20 mg QDAY ISAAC Administration Dextrose 0 ml 10/11/18 03:57 10/11/18 10:18 D50w (25gm) Syringe IV 10 ml PRN PRN Administration Hypoglycemia Docusate Sodium 100 mg 11/04/18 22:00 11/10/18 22:26 Colace PO 100 mg BID ISAAC Administration Famotidine 20 mg 10/15/18 10:00 11/10/18 22:26 Pepcid PO 20 mg BID ISAAC Administration Insulin Human Regular 0 units 10/17/18 11:30 11/11/18 09:53 Humulin R SUB-Q Not Given ACHS [facility] Protocol Metoprolol Tartrate 25 mg 10/18/18 22:00 11/10/18 22:30 Lopressor PO Not Given BID ISAAC Metoprolol Tartrate 2.5 mg 10/18/18 18:51 10/18/18 22:19 Lopressor IV 2.5 mg Q6H PRN Administration Tachyarrhythmias Naloxone HCl 0.1 mg 10/29/18 16:03 Narcan 0.4 Mg/1 Ml IV Q2MIN PRN Res Rate </= 8 or 02 SAT < 92% Ondansetron HCl 4 mg 10/11/18 04:04 11/01/18 22:12 Zofran IV 4 mg Q8H PRN Administration Nausea And Vomiting Oxycodone/Acetaminophen 1 tab 10/18/18 13:45 11/10/18 20:19 Percocet 5/325 PO 1 tab Q6H PRN Administration Pain, Moderate (4-6) Nutrition/Malnutrition Assess - Dietary Evaluation Nutrition/Malnutrition Findings: Nutrition Notes Start: 10/11/18 12:39 Freq: Status: Active Protocol: Document 11/06/18 16:04 SHERLY (Rec: 11/06/18 16:14 SHERLY [email or web address] [email or web address]) Nutrition Notes Initial or Follow up Reassessment Current Diagnosis COPD,Diabetes,Sepsis, Hypertension,Heart Failure, Stroke Other Pertinent Diagnosis s/p (L) BKA Current Diet Mech soft + Glucerna and Hernesto BID Labs/Tests BG 163 Pertinent Medications Reviewed Height 6 ft 3 in Weight 55.2 kg [place] Body Weight (kg) 89.09 BMI 15.2 Weight change and time frame Current wt obtained from bed scale. Adj wt for BKA: 58.66kg Adj BMI: 16.1 Subjective/Other Information Pt has consumed 55% of meals over the past two days. He is confused at times and requires assistance during meal times. RD assisted pt with lunch today; he ate <25% of meal. He is edentulous, but does not want pureed foods. Takes him a long time to chew foods. Pt encouraged to drink ONS ( Glucerna and [place]) Percent of energy/protein needs met: 62% energy 66% pro (without ONS) Burn Absent Trauma Absent #2 Nutrition Diagnosis Inadequate oral intake Diagnosis Progress(for reassessment Continues documentation) #1 Nutrition Diagnosis Malnutrition Diagnosis Progress(for reassessment Continues documentation) Is patient on ventilator? No Is Patient Ambulatory and/or Out of Bed Yes REE-([place]-St. Jeor-ambulatory/OOB) [ 1907.919 [id number]] Kcal/Kg value to use for calculation 40 Approximate Energy Requirements Using 2208 kcal/Kg Calculation Used for Recommendations Kcal/kg Additional Notes Pro needs 1.5-2g/k-110g/ day Fluid needs 1ml/kcal Nutrition Intervention Change Diet Order: Continue current diet order Add Supplement/Snack (indicate name/kcal Glucerna BID + [place] BID /protein ) Provides kCal: 630 Provides Protein (gm) 25 Goal #1 PO intake of meals plus ONS to meet 100% energy and pro needs Goal #2 Wt maintenance and/or gain Follow-Up By: 11/13/18 Additional Comments F/U: intakes, wt
[2018-11-11] MEDS: COLACE PO SCH ×2 (12:11→22:09)
[2018-11-11] MEDS: ELIQUIS PO SCH ×2 (12:11→22:09)
[2018-11-11] MEDS: celeXA PO SCH (12:12)
[2018-11-11] MEDS: PEPCID PO SCH ×2 (12:12→22:09)
[2018-11-11] MEDS: HALFPRIN EC PO SCH (12:12)
[2018-11-11] MEDS: LOPRESSOR PO SCH ×2 (12:13→22:11)
[2018-11-11] MEDS: SUBOXONE 2 MG-0.5 MG SL SCH (13:59)
--- NOTE | 2018-11-11 15:33 | Progress Note ---
Assessment and Plan Acute hypoxemic respiratory failure, on mechanical ventilator support. Drug overdose. Acute chronic obstructive pulmonary disease exacerbation. Severe PVD Witnessed seizure en route. Acute kidney injury. Leukocytosis. Hypercapnia. Hyperkalemia. Metabolic acidosis. Lactic acidosis. Non-ST elevation myocardial infarction. Elevated serum transaminases. - may likely need ICU observation post-op on monday - continue aspiration precautions - continue full anticoagulation with Eliquis re: PVD (bridge anticoagulation per surgical team) - continue bronchodilators with pulmonary hygiene per RT (re: COPD) - continue GI & VTE prophylaxis - prn supplemental oxygen to keep O2 sats 88-90% - prn BIPAP (especially post-op) - follow clinically off AB's (rene-op AB's per surgical team) - continue accuchecks with glycemic control per SSI for target glucose of 140- 180 mg/dL - Maintenance of sleep -wake cycle - Mobility as tolerated by hemodynamics - Influenza and pneumonia vaccination per protocol ..care plan discussed at length with RN/RT at the bedside Subjective Date of service: 11/11/18 Principal diagnosis: Ac hypercapnic hypoxemic Resp failure; Drug OD; AE-COPD; NINOSKA; Seizures Interval history: Patient is seen today for: Acute hypoxemic respiratory failure, on mechanical ventilator support; Drug overdose; Acute chronic obstructive pulmonary disease exacerbation; Witnessed seizure en route; Acute kidney injury; Leukocytosis; Hypercapnia. Seen and examined at bedside; 24-hour events reviewed; nursing and respiratory care staff consulted; no adverse overnight events reported to me; resting peacefully in bed; tentatively for right BKA tomorrow Objective Vital Signs - 12hr 11/11/18 11/11/18 11/11/18 06:26 08:00 08:09 Temperature 98.9 F Pulse Rate 66 Pulse Rate [ 79 79 Throughout] Respiratory 16 Rate Respiratory 18 19 Rate [ Throughout] Blood Pressure 111/66 O2 Sat by Pulse 93 Oximetry 11/11/18 11/11/18 11/11/18 08:10 12:09 12:13 Temperature 98.0 F Pulse Rate 75 92 H Pulse Rate [ Throughout] Respiratory 18 Rate Respiratory Rate [ Throughout] Blood Pressure 103/58 103/58 O2 Sat by Pulse 93 93 Oximetry 11/11/18 11/11/18 14:00 14:17 Temperature Pulse Rate Pulse Rate [ 82 81 Throughout] Respiratory Rate Respiratory 19 18 Rate [ Throughout] Blood Pressure O2 Sat by Pulse Oximetry Constitutional: no acute distress, asleep, other (middle aged but chronically ill looking CM; Atraumatic) Eyes: non-icteric ENT: oropharynx moist, other (mallampati 2) Neck: supple, no lymphadenopathy, no JVD Effort: normal Ascultation: Bilateral: clear, diminished breath sounds, rhonchi (scant) Percussion: Bilateral: not dull Cardiovascular: irregular rhythm, other (No R/M) Gastrointestinal: normoactive bowel sounds, soft, non-tender, non-distended Integumentary: other (s/p left BKA) Extremities: no edema, other (S/P Left BKA) Neurologic: normal mental status, pupils equal and round, other (Left hemiparesis, improving) Psychiatric: mood appropriate, affect normal CBC and BMP: 11/10/18 06:27 11/10/18 06:27 ABG, PT/INR, D-dimer: ABG POC ABG pH 7.393 (7.35-7.45) 10/16/18 12:51 POC ABG pCO2 48.9 (35-45) H 10/16/18 12:51 POC ABG pO2 92 (80-105) 10/16/18 12:51 POC ABG HCO3 29.8 (22-26 mml/L) 10/16/18 12:51 POC ABG Total CO2 31 (23-27mmol/L) 10/16/18 12:51 POC ABG O2 Sat 97 10/16/18 12:51 PT/INR, D-dimer PT 13.9 Sec. (12.2-14.9) 10/29/18 07:11 INR 1.01 (0.87-1.13) 10/29/18 07:11 Abnormal lab findings: Abnormal Labs 10/11/18 10/11/18 10/11/18 00:16 00:16 00:16 WBC 20.1 H RBC Hgb Hct MCV 98 H MCHC RDW 15.4 H Plt Count Lymph % (Auto) [place] % (Auto) [place] # Seg Neutrophils % Seg Neuts % (Manual) Lymphocytes % (Manual) 5.0 L Monocytes % (Manual) 25.0 H Seg Neutrophils # Seg Neutrophils # Man 9.2 H Lymphocytes # (Manual) 1.0 L Monocytes # (Manual) 5.0 H APTT Heparin Anti-Xa Level POC ABG pH POC ABG pCO2 POC ABG pO2 Sodium Potassium 5.8 H Chloride Carbon Dioxide 17 L BUN Creatinine 2.2 H Glucose 348 H POC Glucose Lactic Acid 13.70 H* Calcium 7.7 L Phosphorus Total Bilirubin 1.50 H AST 179 H ALT 110 H Total Creatine Kinase 324 H CK-MB (CK-2) Troponin T 0.257 H* Total Protein 5.9 L Albumin 2.9 L Prealbumin HDL Cholesterol 19 L Salicylates Acetaminophen Crossmatch 10/11/18 10/11/18 10/11/18 00:16 00:16 01:21 WBC RBC Hgb Hct MCV MCHC RDW Plt Count Lymph % (Auto) [place] % (Auto) [place] # Seg Neutrophils % Seg Neuts % (Manual) Lymphocytes % (Manual) Monocytes % (Manual) Seg Neutrophils # Seg Neutrophils # Man Lymphocytes # (Manual) Monocytes # (Manual) APTT Heparin Anti-Xa Level POC ABG pH 7.110 L POC ABG pCO2 50.3 H POC ABG pO2 65 L Sodium Potassium Chloride Carbon Dioxide BUN Creatinine Glucose POC Glucose Lactic Acid Calcium Phosphorus Total Bilirubin AST ALT Total Creatine Kinase CK-MB (CK-2) Troponin T Total Protein Albumin Prealbumin HDL Cholesterol Salicylates < 0.3 L Acetaminophen < 5.0 L Crossmatch 10/11/18 10/11/18 10/11/18 01:22 03:27 04:14 WBC RBC Hgb Hct MCV MCHC RDW Plt Count Lymph % (Auto) [place] % (Auto) [place] # Seg Neutrophils % Seg Neuts % (Manual) Lymphocytes % (Manual) Monocytes % (Manual) Seg Neutrophils # Seg Neutrophils # Man Lymphocytes # (Manual) Monocytes # (Manual) APTT Heparin Anti-Xa Level POC ABG pH POC ABG pCO2 POC ABG pO2 Sodium Potassium Chloride Carbon Dioxide BUN Creatinine Glucose POC Glucose Lactic Acid 8.50 H* 4.10 H* Calcium Phosphorus 4.90 H Total Bilirubin AST ALT Total Creatine Kinase CK-MB (CK-2) Troponin T Total Protein Albumin Prealbumin HDL Cholesterol Salicylates Acetaminophen Crossmatch 10/11/18 10/11/18 10/11/18 04:14 04:14 04:14 WBC RBC Hgb Hct MCV MCHC RDW Plt Count Lymph % (Auto) [place] % (Auto) [place] # Seg Neutrophils % Seg Neuts % (Manual) Lymphocytes % (Manual) Monocytes % (Manual) Seg Neutrophils # Seg Neutrophils # Man Lymphocytes # (Manual) Monocytes # (Manual) APTT Heparin Anti-Xa Level POC ABG pH POC ABG pCO2 POC ABG pO2 Sodium Potassium 5.6 H Chloride Carbon Dioxide 19 L BUN Creatinine 1.6 H Glucose 329 H POC Glucose 328 H Lactic Acid Calcium 7.3 L Phosphorus Total Bilirubin AST ALT Total Creatine Kinase CK-MB (CK-2) Troponin T 1.130 H* D Total Protein Albumin Prealbumin HDL Cholesterol Salicylates Acetaminophen Crossmatch 10/11/18 10/11/18 10/11/18 05:10 05:32 05:58 WBC RBC Hgb Hct MCV MCHC RDW Plt Count Lymph % (Auto) [place] % (Auto) [place] # Seg Neutrophils % Seg Neuts % (Manual) Lymphocytes % (Manual) Monocytes % (Manual) Seg Neutrophils # Seg Neutrophils # Man Lymphocytes # (Manual) Monocytes # (Manual) APTT Heparin Anti-Xa Level POC ABG pH 7.259 L POC ABG pCO2 45.6 H POC ABG pO2 Sodium Potassium Chloride 108.6 H Carbon Dioxide 20 L BUN Creatinine 1.8 H Glucose 269 H POC Glucose 273 H Lactic Acid Calcium 7.0 L Phosphorus Total Bilirubin AST ALT Total Creatine Kinase CK-MB (CK-2) Troponin T Total Protein Albumin Prealbumin HDL Cholesterol Salicylates Acetaminophen Crossmatch 10/11/18 10/11/18 10/11/18 05:58 06:39 07:00 WBC RBC Hgb Hct MCV MCHC RDW Plt Count Lymph % (Auto) [place] % (Auto) [place] # Seg Neutrophils % Seg Neuts % (Manual) Lymphocytes % (Manual) Monocytes % (Manual) Seg Neutrophils # Seg Neutrophils # Man Lymphocytes # (Manual) Monocytes # (Manual) APTT Heparin Anti-Xa Level POC ABG pH POC ABG pCO2 POC ABG pO2 Sodium Potassium Chloride Carbon Dioxide BUN Creatinine Glucose POC Glucose 247 H Lactic Acid 3.20 H* 3.30 H* Calcium Phosphorus Total Bilirubin AST ALT Total Creatine Kinase CK-MB (CK-2) Troponin T Total Protein Albumin Prealbumin HDL Cholesterol Salicylates Acetaminophen Crossmatch 10/11/18 10/11/18 10/11/18 07:00 07:30 07:36 WBC RBC Hgb Hct MCV MCHC RDW Plt Count Lymph % (Auto) [place] % (Auto) [place] # Seg Neutrophils % Seg Neuts % (Manual) Lymphocytes % (Manual) Monocytes % (Manual) Seg Neutrophils # Seg Neutrophils # Man Lymphocytes # (Manual) Monocytes # (Manual) APTT Heparin Anti-Xa Level POC ABG pH POC ABG pCO2 POC ABG pO2 Sodium 146 H Potassium Chloride 112.1 H Carbon Dioxide 21 L BUN Creatinine 1.6 H Glucose 218 H POC Glucose Lactic Acid 3.20 H* Calcium 7.0 L Phosphorus Total Bilirubin AST ALT Total Creatine Kinase CK-MB (CK-2) Troponin T 1.020 H* Total Protein Albumin Prealbumin HDL Cholesterol Salicylates Acetaminophen Crossmatch 10/11/18 10/11/18 10/11/18 07:43 08:29 08:29 WBC RBC Hgb 16.2 H Hct 49.9 H D MCV MCHC RDW Plt Count Lymph % (Auto) [place] % (Auto) [place] # Seg Neutrophils % Seg Neuts % (Manual) Lymphocytes % (Manual) Monocytes % (Manual) Seg Neutrophils # Seg Neutrophils # Man Lymphocytes # (Manual) Monocytes # (Manual) APTT Heparin Anti-Xa Level POC ABG pH POC ABG pCO2 POC ABG pO2 Sodium Potassium Chloride Carbon Dioxide BUN Creatinine Glucose POC Glucose 174 H Lactic Acid 3.90 H* Calcium Phosphorus Total Bilirubin AST ALT Total Creatine Kinase CK-MB (CK-2) Troponin T Total Protein Albumin Prealbumin HDL Cholesterol Salicylates Acetaminophen Crossmatch 10/11/18 10/11/18 10/11/18 08:29 08:42 11:05 WBC RBC Hgb Hct MCV MCHC RDW Plt Count Lymph % (Auto) [place] % (Auto) [place] # Seg Neutrophils % Seg Neuts % (Manual) Lymphocytes % (Manual) Monocytes % (Manual) Seg Neutrophils # Seg Neutrophils # Man Lymphocytes # (Manual) Monocytes # (Manual) APTT 24.1 L Heparin Anti-Xa Level POC ABG pH POC ABG pCO2 POC ABG pO2 Sodium 147 H Potassium Chloride 113.3 H Carbon Dioxide 21 L BUN Creatinine 1.7 H Glucose 119 H POC Glucose 164 H Lactic Acid Calcium 7.7 L Phosphorus Total Bilirubin AST ALT Total Creatine Kinase CK-MB (CK-2) Troponin T Total Protein Albumin Prealbumin HDL Cholesterol Salicylates Acetaminophen Crossmatch 10/11/18 10/11/18 10/11/18 11:05 11:06 12:30 WBC RBC Hgb Hct MCV MCHC RDW Plt Count Lymph % (Auto) [place] % (Auto) [place] # Seg Neutrophils % Seg Neuts % (Manual) Lymphocytes % (Manual) Monocytes % (Manual) Seg Neutrophils # Seg Neutrophils # Man Lymphocytes # (Manual) Monocytes # (Manual) APTT Heparin Anti-Xa Level POC ABG pH POC ABG pCO2 POC ABG pO2 Sodium 148 H Potassium Chloride 113.4 H Carbon Dioxide 21 L BUN Creatinine 1.6 H Glucose 119 H POC Glucose 116 H Lactic Acid 3.20 H* Calcium 7.5 L Phosphorus Total Bilirubin AST ALT Total Creatine Kinase CK-MB (CK-2) Troponin T Total Protein Albumin Prealbumin HDL Cholesterol Salicylates Acetaminophen Crossmatch 10/11/18 10/11/18 10/11/18 12:30 13:16 13:25 WBC RBC Hgb Hct MCV MCHC RDW Plt Count Lymph % (Auto) [place] % (Auto) [place] # Seg Neutrophils % Seg Neuts % (Manual) Lymphocytes % (Manual) Monocytes % (Manual) Seg Neutrophils # Seg Neutrophils # Man Lymphocytes # (Manual) Monocytes # (Manual) APTT Heparin Anti-Xa Level POC ABG pH 7.247 L POC ABG pCO2 48.4 H POC ABG pO2 Sodium Potassium Chloride Carbon Dioxide BUN Creatinine Glucose POC Glucose 112 H Lactic Acid 2.70 H* Calcium Phosphorus Total Bilirubin AST ALT Total Creatine Kinase CK-MB (CK-2) Troponin T Total Protein Albumin Prealbumin HDL Cholesterol Salicylates Acetaminophen Crossmatch 10/11/18 10/11/18 10/11/18 14:41 15:27 16:13 WBC RBC Hgb Hct MCV MCHC RDW Plt Count Lymph % (Auto) [place] % (Auto) [place] # Seg Neutrophils % Seg Neuts % (Manual) Lymphocytes % (Manual) Monocytes % (Manual) Seg Neutrophils # Seg Neutrophils # Man Lymphocytes # (Manual) Monocytes # (Manual) APTT Heparin Anti-Xa Level POC ABG pH POC ABG pCO2 POC ABG pO2 Sodium Potassium Chloride Carbon Dioxide BUN Creatinine Glucose POC Glucose 127 H 141 H 134 H Lactic Acid Calcium Phosphorus Total Bilirubin AST ALT Total Creatine Kinase CK-MB (CK-2) Troponin T Total Protein Albumin Prealbumin HDL Cholesterol Salicylates Acetaminophen Crossmatch 10/11/18 10/11/18 10/11/18 17:18 18:23 19:38 WBC RBC Hgb Hct MCV MCHC RDW Plt Count Lymph % (Auto) [place] % (Auto) [place] # Seg Neutrophils % Seg Neuts % (Manual) Lymphocytes % (Manual) Monocytes % (Manual) Seg Neutrophils # Seg Neutrophils # Man Lymphocytes # (Manual) Monocytes # (Manual) APTT Heparin Anti-Xa Level POC ABG pH POC ABG pCO2 POC ABG pO2 Sodium 148 H Potassium Chloride 112.7 H Carbon Dioxide BUN 23 H Creatinine Glucose 143 H POC Glucose 132 H 129 H Lactic Acid Calcium 7.9 L Phosphorus Total Bilirubin AST ALT Total Creatine Kinase CK-MB (CK-2) Troponin T Total Protein Albumin Prealbumin HDL Cholesterol Salicylates Acetaminophen Crossmatch 10/11/18 10/11/18 10/11/18 20:19 20:36 21:01 WBC RBC Hgb Hct MCV MCHC RDW Plt Count Lymph % (Auto) [place] % (Auto) [place] # Seg Neutrophils % Seg Neuts % (Manual) Lymphocytes % (Manual) Monocytes % (Manual) Seg Neutrophils # Seg Neutrophils # Man Lymphocytes # (Manual) Monocytes # (Manual) APTT Heparin Anti-Xa Level POC ABG pH 7.281 L POC ABG pCO2 POC ABG pO2 Sodium Potassium Chloride Carbon Dioxide BUN Creatinine Glucose POC Glucose 129 H 151 H Lactic Acid Calcium Phosphorus Total Bilirubin AST ALT Total Creatine Kinase CK-MB (CK-2) Troponin T Total Protein Albumin Prealbumin HDL Cholesterol Salicylates Acetaminophen Crossmatch 10/11/18 10/11/18 10/12/18 22:04 23:15 01:18 WBC RBC Hgb Hct MCV MCHC RDW Plt Count Lymph % (Auto) [place] % (Auto) [place] # Seg Neutrophils % Seg Neuts % (Manual) Lymphocytes % (Manual) Monocytes % (Manual) Seg Neutrophils # Seg Neutrophils # Man Lymphocytes # (Manual) Monocytes # (Manual) APTT Heparin Anti-Xa Level POC ABG pH POC ABG pCO2 POC ABG pO2 Sodium Potassium Chloride Carbon Dioxide BUN Creatinine Glucose POC Glucose 147 H 143 H 158 H Lactic Acid Calcium Phosphorus Total Bilirubin AST ALT Total Creatine Kinase CK-MB (CK-2) Troponin T Total Protein Albumin Prealbumin HDL Cholesterol Salicylates Acetaminophen Crossmatch 10/12/18 10/12/18 10/12/18 02:13 03:18 04:04 WBC RBC Hgb Hct MCV MCHC RDW Plt Count Lymph % (Auto) [place] % (Auto) [place] # Seg Neutrophils % Seg Neuts % (Manual) Lymphocytes % (Manual) Monocytes % (Manual) Seg Neutrophils # Seg Neutrophils # Man Lymphocytes # (Manual) Monocytes # (Manual) APTT Heparin Anti-Xa Level POC ABG pH POC ABG pCO2 POC ABG pO2 Sodium 147 H Potassium Chloride 111.1 H Carbon Dioxide BUN 30 H Creatinine 2.0 H Glucose 154 H POC Glucose 148 H 142 H Lactic Acid Calcium 8.1 L Phosphorus Total Bilirubin AST 269 H ALT 204 H Total Creatine Kinase 3647 H CK-MB (CK-2) 48.3 H Troponin T 2.230 H* D Total Protein 5.8 L Albumin 2.6 L Prealbumin HDL Cholesterol Salicylates Acetaminophen Crossmatch 10/12/18 10/12/18 10/12/18 04:04 04:08 04:19 WBC 24.4 H RBC Hgb Hct MCV MCHC RDW Plt Count Lymph % (Auto) [place] % (Auto) [place] # Seg Neutrophils % Seg Neuts % (Manual) 32.0 L Lymphocytes % (Manual) Monocytes % (Manual) 8.0 H Seg Neutrophils # Seg Neutrophils # Man 7.8 H Lymphocytes # (Manual) Monocytes # (Manual) 2.0 H APTT Heparin Anti-Xa Level POC ABG pH 7.317 L POC ABG pCO2 49.3 H POC ABG pO2 Sodium Potassium Chloride Carbon Dioxide BUN Creatinine Glucose POC Glucose 143 H Lactic Acid Calcium Phosphorus Total Bilirubin AST ALT Total Creatine Kinase CK-MB (CK-2) Troponin T Total Protein Albumin Prealbumin HDL Cholesterol Salicylates Acetaminophen Crossmatch 10/12/18 10/12/18 10/12/18 05:29 06:52 08:09 WBC RBC Hgb Hct MCV MCHC RDW Plt Count Lymph % (Auto) [place] % (Auto) [place] # Seg Neutrophils % Seg Neuts % (Manual) Lymphocytes % (Manual) Monocytes % (Manual) Seg Neutrophils # Seg Neutrophils # Man Lymphocytes # (Manual) Monocytes # (Manual) APTT Heparin Anti-Xa Level POC ABG pH 7.322 L POC ABG pCO2 46.5 H POC ABG pO2 Sodium Potassium Chloride Carbon Dioxide BUN Creatinine Glucose POC Glucose 196 H 226 H Lactic Acid Calcium Phosphorus Total Bilirubin AST ALT Total Creatine Kinase CK-MB (CK-2) Troponin T Total Protein Albumin Prealbumin HDL Cholesterol Salicylates Acetaminophen Crossmatch 10/12/18 10/12/18 10/12/18 08:38 10:03 15:50 WBC RBC Hgb Hct MCV MCHC RDW Plt Count Lymph % (Auto) [place] % (Auto) [place] # Seg Neutrophils % Seg Neuts % (Manual) Lymphocytes % (Manual) Monocytes % (Manual) Seg Neutrophils # Seg Neutrophils # Man Lymphocytes # (Manual) Monocytes # (Manual) APTT Heparin Anti-Xa Level POC ABG pH POC ABG pCO2 POC ABG pO2 Sodium Potassium Chloride Carbon Dioxide BUN Creatinine Glucose POC Glucose 138 H 148 H 221 H Lactic Acid Calcium Phosphorus Total Bilirubin AST ALT Total Creatine Kinase CK-MB (CK-2) Troponin T Total Protein Albumin Prealbumin HDL Cholesterol Salicylates Acetaminophen Crossmatch 10/12/18 10/12/18 10/12/18 18:39 20:56 21:34 WBC RBC Hgb Hct MCV MCHC RDW Plt Count Lymph % (Auto) [place] % (Auto) [place] # Seg Neutrophils % Seg Neuts % (Manual) Lymphocytes % (Manual) Monocytes % (Manual) Seg Neutrophils # Seg Neutrophils # Man Lymphocytes # (Manual) Monocytes # (Manual) APTT Heparin Anti-Xa Level POC ABG pH 7.336 L POC ABG pCO2 46.0 H POC ABG pO2 Sodium Potassium Chloride Carbon Dioxide BUN Creatinine Glucose POC Glucose 255 H 260 H Lactic Acid Calcium Phosphorus Total Bilirubin AST ALT Total Creatine Kinase CK-MB (CK-2) Troponin T Total Protein Albumin Prealbumin HDL Cholesterol Salicylates Acetaminophen Crossmatch 10/13/18 10/13/18 10/13/18 02:29 05:09 05:40 WBC 17.0 H RBC Hgb Hct MCV MCHC RDW Plt Count Lymph % (Auto) [place] % (Auto) 9.2 H [place] # 1.6 H Seg Neutrophils % 76.2 H Seg Neuts % (Manual) Lymphocytes % (Manual) Monocytes % (Manual) Seg Neutrophils # 12.9 H Seg Neutrophils # Man Lymphocytes # (Manual) Monocytes # (Manual) APTT Heparin Anti-Xa Level POC ABG pH POC ABG pCO2 POC ABG pO2 Sodium Potassium Chloride Carbon Dioxide BUN Creatinine Glucose POC Glucose 216 H 249 H Lactic Acid Calcium Phosphorus Total Bilirubin AST ALT Total Creatine Kinase CK-MB (CK-2) Troponin T Total Protein Albumin Prealbumin HDL Cholesterol Salicylates Acetaminophen Crossmatch 10/13/18 10/13/18 10/13/18 05:40 05:40 09:46 WBC RBC Hgb Hct MCV MCHC RDW Plt Count Lymph % (Auto) [place] % (Auto) [place] # Seg Neutrophils % Seg Neuts % (Manual) Lymphocytes % (Manual) Monocytes % (Manual) Seg Neutrophils # Seg Neutrophils # Man Lymphocytes # (Manual) Monocytes # (Manual) APTT Heparin Anti-Xa Level POC ABG pH POC ABG pCO2 POC ABG pO2 Sodium 146 H Potassium Chloride 109.8 H Carbon Dioxide BUN 35 H Creatinine Glucose 245 H POC Glucose 235 H Lactic Acid Calcium 7.9 L Phosphorus Total Bilirubin AST ALT Total Creatine Kinase CK-MB (CK-2) Troponin T 0.952 H* D Total Protein Albumin Prealbumin HDL Cholesterol Salicylates Acetaminophen Crossmatch 10/13/18 10/13/18 10/13/18 13:58 16:15 17:30 WBC RBC Hgb Hct MCV MCHC RDW Plt Count Lymph % (Auto) [place] % (Auto) [place] # Seg Neutrophils % Seg Neuts % (Manual) Lymphocytes % (Manual) Monocytes % (Manual) Seg Neutrophils # Seg Neutrophils # Man Lymphocytes # (Manual) Monocytes # (Manual) APTT Heparin Anti-Xa Level POC ABG pH POC ABG pCO2 51.2 H POC ABG pO2 Sodium Potassium Chloride Carbon Dioxide BUN Creatinine Glucose POC Glucose 139 H Lactic Acid Calcium Phosphorus Total Bilirubin AST ALT Total Creatine Kinase CK-MB (CK-2) Troponin T 0.816 H* Total Protein Albumin Prealbumin HDL Cholesterol Salicylates Acetaminophen Crossmatch 10/13/18 10/14/18 10/14/18 21:25 01:49 04:52 WBC RBC Hgb Hct MCV MCHC RDW Plt Count Lymph % (Auto) [place] % (Auto) [place] # Seg Neutrophils % Seg Neuts % (Manual) Lymphocytes % (Manual) Monocytes % (Manual) Seg Neutrophils # Seg Neutrophils # Man Lymphocytes # (Manual) Monocytes # (Manual) APTT Heparin Anti-Xa Level POC ABG pH POC ABG pCO2 56.0 H POC ABG pO2 Sodium Potassium Chloride Carbon Dioxide BUN Creatinine Glucose POC Glucose 205 H 166 H Lactic Acid Calcium Phosphorus Total Bilirubin AST ALT Total Creatine Kinase CK-MB (CK-2) Troponin T Total Protein Albumin Prealbumin HDL Cholesterol Salicylates Acetaminophen Crossmatch 10/14/18 10/14/18 10/14/18 05:32 09:45 09:45 WBC RBC Hgb 11.4 L Hct 34.5 L MCV MCHC RDW Plt Count 139 L Lymph % (Auto) [place] % (Auto) [place] # Seg Neutrophils % Seg Neuts % (Manual) Lymphocytes % (Manual) Monocytes % (Manual) Seg Neutrophils # Seg Neutrophils # Man Lymphocytes # (Manual) Monocytes # (Manual) APTT Heparin Anti-Xa Level POC ABG pH POC ABG pCO2 POC ABG pO2 Sodium 148 H Potassium Chloride 107.3 H Carbon Dioxide 34 H D BUN Creatinine 0.7 L D Glucose 191 H POC Glucose 164 H Lactic Acid Calcium 7.3 L Phosphorus Total Bilirubin AST 110 H ALT 91 H Total Creatine Kinase CK-MB (CK-2) Troponin T Total Protein 4.9 L Albumin 2.0 L Prealbumin HDL Cholesterol Salicylates Acetaminophen Crossmatch 10/14/18 10/14/18 10/14/18 10:54 12:20 18:30 WBC RBC Hgb Hct MCV MCHC RDW Plt Count Lymph % (Auto) [place] % (Auto) [place] # Seg Neutrophils % Seg Neuts % (Manual) Lymphocytes % (Manual) Monocytes % (Manual) Seg Neutrophils # Seg Neutrophils # Man Lymphocytes # (Manual) Monocytes # (Manual) APTT Heparin Anti-Xa Level POC ABG pH POC ABG pCO2 POC ABG pO2 Sodium Potassium Chloride Carbon Dioxide BUN Creatinine Glucose POC Glucose 173 H 158 H 108 H Lactic Acid Calcium Phosphorus Total Bilirubin AST ALT Total Creatine Kinase CK-MB (CK-2) Troponin T Total Protein Albumin Prealbumin HDL Cholesterol Salicylates Acetaminophen Crossmatch 10/14/18 10/15/18 10/15/18 21:54 02:12 04:19 WBC RBC Hgb Hct MCV MCHC RDW Plt Count Lymph % (Auto) [place] % (Auto) [place] # Seg Neutrophils % Seg Neuts % (Manual) Lymphocytes % (Manual) Monocytes % (Manual) Seg Neutrophils # Seg Neutrophils # Man Lymphocytes # (Manual) Monocytes # (Manual) APTT Heparin Anti-Xa Level POC ABG pH 7.491 H POC ABG pCO2 45.1 H POC ABG pO2 Sodium Potassium Chloride Carbon Dioxide BUN Creatinine Glucose POC Glucose 110 H 164 H Lactic Acid Calcium Phosphorus Total Bilirubin AST ALT Total Creatine Kinase CK-MB (CK-2) Troponin T Total Protein Albumin Prealbumin HDL Cholesterol Salicylates Acetaminophen Crossmatch 10/15/18 10/15/18 10/15/18 04:55 05:43 06:20 WBC RBC Hgb 11.7 L Hct 34.7 L MCV MCHC RDW Plt Count Lymph % (Auto) [place] % (Auto) [place] # Seg Neutrophils % Seg Neuts % (Manual) Lymphocytes % (Manual) Monocytes % (Manual) Seg Neutrophils # Seg Neutrophils # Man Lymphocytes # (Manual) Monocytes # (Manual) APTT Heparin Anti-Xa Level POC ABG pH POC ABG pCO2 47.3 H POC ABG pO2 78 L Sodium Potassium Chloride Carbon Dioxide BUN Creatinine Glucose POC Glucose 250 H Lactic Acid Calcium Phosphorus Total Bilirubin AST ALT Total Creatine Kinase CK-MB (CK-2) Troponin T Total Protein Albumin Prealbumin HDL Cholesterol Salicylates Acetaminophen Crossmatch 10/15/18 10/15/18 10/15/18 12:00 12:00 12:11 WBC RBC Hgb 11.5 L Hct 34.0 L MCV MCHC RDW Plt Count Lymph % (Auto) [place] % (Auto) [place] # Seg Neutrophils % Seg Neuts % (Manual) Lymphocytes % (Manual) Monocytes % (Manual) Seg Neutrophils # Seg Neutrophils # Man Lymphocytes # (Manual) Monocytes # (Manual) APTT Heparin Anti-Xa Level POC ABG pH POC ABG pCO2 POC ABG pO2 Sodium 147 H Potassium Chloride 108.5 H Carbon Dioxide BUN Creatinine 0.7 L Glucose 209 H POC Glucose 197 H Lactic Acid Calcium 7.3 L Phosphorus Total Bilirubin AST ALT Total Creatine Kinase CK-MB (CK-2) Troponin T Total Protein Albumin Prealbumin HDL Cholesterol Salicylates Acetaminophen Crossmatch 10/15/18 10/15/18 10/15/18 15:48 18:34 21:29 WBC RBC Hgb Hct MCV MCHC RDW Plt Count Lymph % (Auto) [place] % (Auto) [place] # Seg Neutrophils % Seg Neuts % (Manual) Lymphocytes % (Manual) Monocytes % (Manual) Seg Neutrophils # Seg Neutrophils # Man Lymphocytes # (Manual) Monocytes # (Manual) APTT Heparin Anti-Xa Level POC ABG pH POC ABG pCO2 POC ABG pO2 Sodium Potassium Chloride Carbon Dioxide BUN Creatinine Glucose POC Glucose 220 H 249 H 209 H Lactic Acid Calcium Phosphorus Total Bilirubin AST ALT Total Creatine Kinase CK-MB (CK-2) Troponin T Total Protein Albumin Prealbumin HDL Cholesterol Salicylates Acetaminophen Crossmatch 10/16/18 10/16/18 10/16/18 02:16 03:50 05:57 WBC RBC Hgb Hct MCV MCHC RDW Plt Count Lymph % (Auto) [place] % (Auto) [place] # Seg Neutrophils % Seg Neuts % (Manual) Lymphocytes % (Manual) Monocytes % (Manual) Seg Neutrophils # Seg Neutrophils # Man Lymphocytes # (Manual) Monocytes # (Manual) APTT Heparin Anti-Xa Level POC ABG pH POC ABG pCO2 55.8 H POC ABG pO2 Sodium Potassium Chloride Carbon Dioxide BUN Creatinine Glucose POC Glucose 110 H 209 H Lactic Acid Calcium Phosphorus Total Bilirubin AST ALT Total Creatine Kinase CK-MB (CK-2) Troponin T Total Protein Albumin Prealbumin HDL Cholesterol Salicylates Acetaminophen Crossmatch 10/16/18 10/16/18 10/16/18 10:51 12:51 15:01 WBC RBC Hgb Hct MCV MCHC RDW Plt Count Lymph % (Auto) [place] % (Auto) [place] # Seg Neutrophils % Seg Neuts % (Manual) Lymphocytes % (Manual) Monocytes % (Manual) Seg Neutrophils # Seg Neutrophils # Man Lymphocytes # (Manual) Monocytes # (Manual) APTT Heparin Anti-Xa Level POC ABG pH POC ABG pCO2 48.9 H POC ABG pO2 Sodium Potassium Chloride Carbon Dioxide BUN Creatinine Glucose POC Glucose 198 H 196 H Lactic Acid Calcium Phosphorus Total Bilirubin AST ALT Total Creatine Kinase CK-MB (CK-2) Troponin T Total Protein Albumin Prealbumin HDL Cholesterol Salicylates Acetaminophen Crossmatch 10/16/18 10/16/18 10/17/18 17:34 21:59 02:17 WBC RBC Hgb Hct MCV MCHC RDW Plt Count Lymph % (Auto) [place] % (Auto) [place] # Seg Neutrophils % Seg Neuts % (Manual) Lymphocytes % (Manual) Monocytes % (Manual) Seg Neutrophils # Seg Neutrophils # Man Lymphocytes # (Manual) Monocytes # (Manual) APTT Heparin Anti-Xa Level POC ABG pH POC ABG pCO2 POC ABG pO2 Sodium Potassium Chloride Carbon Dioxide BUN Creatinine Glucose POC Glucose 179 H 139 H 135 H Lactic Acid Calcium Phosphorus Total Bilirubin AST ALT Total Creatine Kinase CK-MB (CK-2) Troponin T Total Protein Albumin Prealbumin HDL Cholesterol Salicylates Acetaminophen Crossmatch 10/17/18 10/17/18 10/17/18 05:40 05:47 10:18 WBC RBC Hgb 11.3 L Hct 33.2 L MCV MCHC RDW Plt Count Lymph % (Auto) [place] % (Auto) [place] # Seg Neutrophils % Seg Neuts % (Manual) Lymphocytes % (Manual) Monocytes % (Manual) Seg Neutrophils # Seg Neutrophils # Man Lymphocytes # (Manual) Monocytes # (Manual) APTT Heparin Anti-Xa Level POC ABG pH POC ABG pCO2 POC ABG pO2 Sodium Potassium Chloride Carbon Dioxide BUN Creatinine Glucose POC Glucose 125 H 139 H Lactic Acid Calcium Phosphorus Total Bilirubin AST ALT Total Creatine Kinase CK-MB (CK-2) Troponin T Total Protein Albumin Prealbumin HDL Cholesterol Salicylates Acetaminophen Crossmatch 10/17/18 10/18/18 10/18/18 23:11 08:49 11:31 WBC RBC Hgb Hct MCV MCHC RDW Plt Count Lymph % (Auto) [place] % (Auto) [place] # Seg Neutrophils % Seg Neuts % (Manual) Lymphocytes % (Manual) Monocytes % (Manual) Seg Neutrophils # Seg Neutrophils # Man Lymphocytes # (Manual) Monocytes # (Manual) APTT Heparin Anti-Xa Level POC ABG pH POC ABG pCO2 POC ABG pO2 Sodium Potassium Chloride Carbon Dioxide BUN Creatinine Glucose POC Glucose 165 H 125 H 182 H Lactic Acid Calcium Phosphorus Total Bilirubin AST ALT Total Creatine Kinase CK-MB (CK-2) Troponin T Total Protein Albumin Prealbumin HDL Cholesterol Salicylates Acetaminophen Crossmatch 10/18/18 10/18/18 10/19/18 16:12 21:02 00:28 WBC RBC Hgb 11.4 L Hct 33.6 L MCV MCHC RDW Plt Count Lymph % (Auto) [place] % (Auto) 14.0 H [place] # 1.2 H Seg Neutrophils % Seg Neuts % (Manual) Lymphocytes % (Manual) Monocytes % (Manual) Seg Neutrophils # Seg Neutrophils # Man Lymphocytes # (Manual) Monocytes # (Manual) APTT Heparin Anti-Xa Level POC ABG pH POC ABG pCO2 POC ABG pO2 Sodium Potassium Chloride Carbon Dioxide BUN Creatinine Glucose POC Glucose 168 H 324 H Lactic Acid Calcium Phosphorus Total Bilirubin AST ALT Total Creatine Kinase CK-MB (CK-2) Troponin T Total Protein Albumin Prealbumin HDL Cholesterol Salicylates Acetaminophen Crossmatch 10/19/18 10/19/18 10/19/18 04:57 04:57 07:32 WBC RBC Hgb 11.7 L Hct 34.0 L MCV MCHC RDW Plt Count Lymph % (Auto) [place] % (Auto) [place] # Seg Neutrophils % Seg Neuts % (Manual) Lymphocytes % (Manual) Monocytes % (Manual) Seg Neutrophils # Seg Neutrophils # Man Lymphocytes # (Manual) Monocytes # (Manual) APTT Heparin Anti-Xa Level POC ABG pH POC ABG pCO2 POC ABG pO2 Sodium Potassium 3.5 L Chloride 108.6 H Carbon Dioxide BUN Creatinine 0.6 L Glucose POC Glucose 159 H Lactic Acid Calcium 7.9 L Phosphorus Total Bilirubin AST ALT Total Creatine Kinase CK-MB (CK-2) Troponin T Total Protein Albumin Prealbumin HDL Cholesterol Salicylates Acetaminophen Crossmatch 10/19/18 10/19/18 10/20/18 16:25 20:59 12:04 WBC RBC Hgb Hct MCV MCHC RDW Plt Count Lymph % (Auto) [place] % (Auto) [place] # Seg Neutrophils % Seg Neuts % (Manual) Lymphocytes % (Manual) Monocytes % (Manual) Seg Neutrophils # Seg Neutrophils # Man Lymphocytes # (Manual) Monocytes # (Manual) APTT Heparin Anti-Xa Level POC ABG pH POC ABG pCO2 POC ABG pO2 Sodium Potassium Chloride Carbon Dioxide BUN Creatinine Glucose POC Glucose 134 H 110 H 338 H Lactic Acid Calcium Phosphorus Total Bilirubin AST ALT Total Creatine Kinase CK-MB (CK-2) Troponin T Total Protein Albumin Prealbumin HDL Cholesterol Salicylates Acetaminophen Crossmatch 10/20/18 10/20/18 10/21/18 17:55 22:07 04:59 WBC RBC Hgb 11.6 L Hct 33.9 L MCV MCHC RDW Plt Count Lymph % (Auto) [place] % (Auto) 9.7 H [place] # 0.9 H Seg Neutrophils % 70.7 H Seg Neuts % (Manual) Lymphocytes % (Manual) Monocytes % (Manual) Seg Neutrophils # Seg Neutrophils # Man Lymphocytes # (Manual) Monocytes # (Manual) APTT Heparin Anti-Xa Level POC ABG pH POC ABG pCO2 POC ABG pO2 Sodium Potassium Chloride Carbon Dioxide BUN Creatinine Glucose POC Glucose 146 H 164 H Lactic Acid Calcium Phosphorus Total Bilirubin AST ALT Total Creatine Kinase CK-MB (CK-2) Troponin T Total Protein Albumin Prealbumin HDL Cholesterol Salicylates Acetaminophen Crossmatch 10/21/18 10/21/18 10/21/18 04:59 07:52 11:39 WBC RBC Hgb Hct MCV MCHC RDW Plt Count Lymph % (Auto) [place] % (Auto) [place] # Seg Neutrophils % Seg Neuts % (Manual) Lymphocytes % (Manual) Monocytes % (Manual) Seg Neutrophils # Seg Neutrophils # Man Lymphocytes # (Manual) Monocytes # (Manual) APTT Heparin Anti-Xa Level POC ABG pH POC ABG pCO2 POC ABG pO2 Sodium Potassium 3.5 L Chloride 107.1 H Carbon Dioxide BUN Creatinine 0.5 L Glucose 158 H POC Glucose 142 H 194 H Lactic Acid Calcium 7.5 L Phosphorus Total Bilirubin AST ALT Total Creatine Kinase CK-MB (CK-2) Troponin T Total Protein 5.6 L Albumin 2.0 L Prealbumin HDL Cholesterol Salicylates Acetaminophen Crossmatch 10/21/18 10/21/18 10/22/18 17:05 20:37 05:38 WBC RBC 3.48 L Hgb 10.8 L Hct 31.7 L MCV MCHC RDW Plt Count 458 H Lymph % (Auto) [place] % (Auto) 10.5 H [place] # Seg Neutrophils % Seg Neuts % (Manual) Lymphocytes % (Manual) Monocytes % (Manual) Seg Neutrophils # Seg Neutrophils # Man Lymphocytes # (Manual) Monocytes # (Manual) APTT Heparin Anti-Xa Level POC ABG pH POC ABG pCO2 POC ABG pO2 Sodium Potassium Chloride Carbon Dioxide BUN Creatinine Glucose POC Glucose 167 H 182 H Lactic Acid Calcium Phosphorus Total Bilirubin AST ALT Total Creatine Kinase CK-MB (CK-2) Troponin T Total Protein Albumin Prealbumin HDL Cholesterol Salicylates Acetaminophen Crossmatch 10/22/18 10/22/18 10/22/18 05:38 07:48 12:08 WBC RBC Hgb Hct MCV MCHC RDW Plt Count Lymph % (Auto) [place] % (Auto) [place] # Seg Neutrophils % Seg Neuts % (Manual) Lymphocytes % (Manual) Monocytes % (Manual) Seg Neutrophils # Seg Neutrophils # Man Lymphocytes # (Manual) Monocytes # (Manual) APTT Heparin Anti-Xa Level POC ABG pH POC ABG pCO2 POC ABG pO2 Sodium Potassium Chloride Carbon Dioxide BUN Creatinine 0.5 L Glucose 146 H POC Glucose 130 H 167 H Lactic Acid Calcium 7.8 L Phosphorus Total Bilirubin AST 41 H ALT Total Creatine Kinase CK-MB (CK-2) Troponin T Total Protein 5.5 L Albumin 2.1 L Prealbumin HDL Cholesterol Salicylates Acetaminophen Crossmatch 10/22/18 10/22/18 10/23/18 16:45 21:42 04:38 WBC RBC Hgb 11.7 L Hct 34.7 L MCV MCHC RDW Plt Count 523 H Lymph % (Auto) [place] % (Auto) 8.7 H [place] # Seg Neutrophils % 71.6 H Seg Neuts % (Manual) Lymphocytes % (Manual) Monocytes % (Manual) Seg Neutrophils # Seg Neutrophils # Man Lymphocytes # (Manual) Monocytes # (Manual) APTT Heparin Anti-Xa Level POC ABG pH POC ABG pCO2 POC ABG pO2 Sodium Potassium Chloride Carbon Dioxide BUN Creatinine Glucose POC Glucose 113 H 134 H Lactic Acid Calcium Phosphorus Total Bilirubin AST ALT Total Creatine Kinase CK-MB (CK-2) Troponin T Total Protein Albumin Prealbumin HDL Cholesterol Salicylates Acetaminophen Crossmatch 10/23/18 10/23/18 10/23/18 04:38 07:56 11:15 WBC RBC Hgb Hct MCV MCHC RDW Plt Count Lymph % (Auto) [place] % (Auto) [place] # Seg Neutrophils % Seg Neuts % (Manual) Lymphocytes % (Manual) Monocytes % (Manual) Seg Neutrophils # Seg Neutrophils # Man Lymphocytes # (Manual) Monocytes # (Manual) APTT Heparin Anti-Xa Level POC ABG pH POC ABG pCO2 POC ABG pO2 Sodium Potassium Chloride Carbon Dioxide BUN 7 L Creatinine 0.5 L Glucose 150 H POC Glucose 123 H 212 H Lactic Acid Calcium 8.0 L Phosphorus Total Bilirubin AST 55 H ALT Total Creatine Kinase CK-MB (CK-2) Troponin T Total Protein 6.2 L Albumin 2.3 L Prealbumin HDL Cholesterol Salicylates Acetaminophen Crossmatch 10/23/18 10/23/18 10/24/18 16:06 22:01 05:56 WBC 11.8 H RBC 3.64 L Hgb 11.2 L Hct 33.4 L MCV MCHC RDW Plt Count 564 H Lymph % (Auto) 11.3 L [place] % (Auto) [place] # Seg Neutrophils % 80.2 H Seg Neuts % (Manual) Lymphocytes % (Manual) Monocytes % (Manual) Seg Neutrophils # 9.4 H Seg Neutrophils # Man Lymphocytes # (Manual) Monocytes # (Manual) APTT Heparin Anti-Xa Level POC ABG pH POC ABG pCO2 POC ABG pO2 Sodium Potassium Chloride Carbon Dioxide BUN Creatinine Glucose POC Glucose 152 H 235 H Lactic Acid Calcium Phosphorus Total Bilirubin AST ALT Total Creatine Kinase CK-MB (CK-2) Troponin T Total Protein Albumin Prealbumin HDL Cholesterol Salicylates Acetaminophen Crossmatch 10/24/18 10/24/18 10/24/18 05:56 07:52 11:58 WBC RBC Hgb Hct MCV MCHC RDW Plt Count Lymph % (Auto) [place] % (Auto) [place] # Seg Neutrophils % Seg Neuts % (Manual) Lymphocytes % (Manual) Monocytes % (Manual) Seg Neutrophils # Seg Neutrophils # Man Lymphocytes # (Manual) Monocytes # (Manual) APTT Heparin Anti-Xa Level POC ABG pH POC ABG pCO2 POC ABG pO2 Sodium Potassium Chloride Carbon Dioxide BUN Creatinine 0.5 L Glucose 175 H POC Glucose 156 H 238 H Lactic Acid Calcium 8.0 L Phosphorus Total Bilirubin AST 44 H ALT Total Creatine Kinase CK-MB (CK-2) Troponin T Total Protein 6.2 L Albumin 2.4 L Prealbumin HDL Cholesterol Salicylates Acetaminophen Crossmatch 10/24/18 10/24/18 10/25/18 16:20 22:13 07:53 WBC RBC Hgb Hct MCV MCHC RDW Plt Count Lymph % (Auto) [place] % (Auto) [place] # Seg Neutrophils % Seg Neuts % (Manual) Lymphocytes % (Manual) Monocytes % (Manual) Seg Neutrophils # Seg Neutrophils # Man Lymphocytes # (Manual) Monocytes # (Manual) APTT Heparin Anti-Xa Level POC ABG pH POC ABG pCO2 POC ABG pO2 Sodium Potassium Chloride Carbon Dioxide BUN Creatinine Glucose POC Glucose 60 L 261 H 211 H Lactic Acid Calcium Phosphorus Total Bilirubin AST ALT Total Creatine Kinase CK-MB (CK-2) Troponin T Total Protein Albumin Prealbumin HDL Cholesterol Salicylates Acetaminophen Crossmatch 10/25/18 10/25/18 10/25/18 11:03 16:02 22:45 WBC RBC Hgb Hct MCV MCHC RDW Plt Count Lymph % (Auto) [place] % (Auto) [place] # Seg Neutrophils % Seg Neuts % (Manual) Lymphocytes % (Manual) Monocytes % (Manual) Seg Neutrophils # Seg Neutrophils # Man Lymphocytes # (Manual) Monocytes # (Manual) APTT Heparin Anti-Xa Level POC ABG pH POC ABG pCO2 POC ABG pO2 Sodium Potassium Chloride Carbon Dioxide BUN Creatinine Glucose POC Glucose 137 H 186 H 140 H Lactic Acid Calcium Phosphorus Total Bilirubin AST ALT Total Creatine Kinase CK-MB (CK-2) Troponin T Total Protein Albumin Prealbumin HDL Cholesterol Salicylates Acetaminophen Crossmatch 10/26/18 10/26/18 10/26/18 08:13 10:08 11:28 WBC RBC Hgb Hct MCV MCHC RDW Plt Count Lymph % (Auto) [place] % (Auto) [place] # Seg Neutrophils % Seg Neuts % (Manual) Lymphocytes % (Manual) Monocytes % (Manual) Seg Neutrophils # Seg Neutrophils # Man Lymphocytes # (Manual) Monocytes # (Manual) APTT Heparin Anti-Xa Level POC ABG pH POC ABG pCO2 POC ABG pO2 Sodium Potassium Chloride Carbon Dioxide BUN Creatinine Glucose POC Glucose 144 H 110 H 201 H Lactic Acid Calcium Phosphorus Total Bilirubin AST ALT Total Creatine Kinase CK-MB (CK-2) Troponin T Total Protein Albumin Prealbumin HDL Cholesterol Salicylates Acetaminophen Crossmatch 10/26/18 10/26/18 10/27/18 16:36 22:29 07:34 WBC RBC Hgb Hct MCV MCHC RDW Plt Count Lymph % (Auto) [place] % (Auto) [place] # Seg Neutrophils % Seg Neuts % (Manual) Lymphocytes % (Manual) Monocytes % (Manual) Seg Neutrophils # Seg Neutrophils # Man Lymphocytes # (Manual) Monocytes # (Manual) APTT Heparin Anti-Xa Level POC ABG pH POC ABG pCO2 POC ABG pO2 Sodium Potassium Chloride Carbon Dioxide BUN Creatinine Glucose POC Glucose 147 H 302 H 182 H Lactic Acid Calcium Phosphorus Total Bilirubin AST ALT Total Creatine Kinase CK-MB (CK-2) Troponin T Total Protein Albumin Prealbumin HDL Cholesterol Salicylates Acetaminophen Crossmatch 10/27/18 10/27/18 10/27/18 11:57 13:33 14:55 WBC RBC Hgb Hct MCV MCHC RDW Plt Count 550 H Lymph % (Auto) [place] % (Auto) [place] # Seg Neutrophils % Seg Neuts % (Manual) Lymphocytes % (Manual) Monocytes % (Manual) Seg Neutrophils # Seg Neutrophils # Man Lymphocytes # (Manual) Monocytes # (Manual) APTT Heparin Anti-Xa Level POC ABG pH POC ABG pCO2 POC ABG pO2 Sodium Potassium Chloride Carbon Dioxide BUN Creatinine Glucose POC Glucose 209 H Lactic Acid Calcium Phosphorus Total Bilirubin AST ALT Total Creatine Kinase CK-MB (CK-2) Troponin T Total Protein Albumin Prealbumin HDL Cholesterol Salicylates Acetaminophen Crossmatch See Detail 10/27/18 10/27/18 10/28/18 17:09 21:45 07:45 WBC RBC Hgb Hct MCV MCHC RDW Plt Count Lymph % (Auto) [place] % (Auto) [place] # Seg Neutrophils % Seg Neuts % (Manual) Lymphocytes % (Manual) Monocytes % (Manual) Seg Neutrophils # Seg Neutrophils # Man Lymphocytes # (Manual) Monocytes # (Manual) APTT Heparin Anti-Xa Level POC ABG pH POC ABG pCO2 POC ABG pO2 Sodium Potassium Chloride Carbon Dioxide BUN Creatinine Glucose POC Glucose 233 H 136 H 201 H Lactic Acid Calcium Phosphorus Total Bilirubin AST ALT Total Creatine Kinase CK-MB (CK-2) Troponin T Total Protein Albumin Prealbumin HDL Cholesterol Salicylates Acetaminophen Crossmatch 10/28/18 10/28/18 10/28/18 11:17 16:34 19:51 WBC RBC Hgb Hct MCV MCHC RDW Plt Count Lymph % (Auto) [place] % (Auto) [place] # Seg Neutrophils % Seg Neuts % (Manual) Lymphocytes % (Manual) Monocytes % (Manual) Seg Neutrophils # Seg Neutrophils # Man Lymphocytes # (Manual) Monocytes # (Manual) APTT Heparin Anti-Xa Level < 0.10 L POC ABG pH POC ABG pCO2 POC ABG pO2 Sodium Potassium Chloride Carbon Dioxide BUN Creatinine Glucose POC Glucose 116 H 168 H Lactic Acid Calcium Phosphorus Total Bilirubin AST ALT Total Creatine Kinase CK-MB (CK-2) Troponin T Total Protein Albumin Prealbumin HDL Cholesterol Salicylates Acetaminophen Crossmatch 10/28/18 10/29/18 10/29/18 21:52 07:11 07:11 WBC RBC Hgb Hct MCV MCHC RDW Plt Count 470 H Lymph % (Auto) [place] % (Auto) [place] # Seg Neutrophils % Seg Neuts % (Manual) Lymphocytes % (Manual) Monocytes % (Manual) Seg Neutrophils # Seg Neutrophils # Man Lymphocytes # (Manual) Monocytes # (Manual) APTT Heparin Anti-Xa Level 0.13 L POC ABG pH POC ABG pCO2 POC ABG pO2 Sodium Potassium Chloride Carbon Dioxide BUN Creatinine Glucose POC Glucose 159 H Lactic Acid Calcium Phosphorus Total Bilirubin AST ALT Total Creatine Kinase CK-MB (CK-2) Troponin T Total Protein Albumin Prealbumin HDL Cholesterol Salicylates Acetaminophen Crossmatch 10/29/18 10/29/18 10/29/18 07:11 07:43 11:29 WBC RBC Hgb Hct MCV MCHC RDW Plt Count Lymph % (Auto) [place] % (Auto) [place] # Seg Neutrophils % Seg Neuts % (Manual) Lymphocytes % (Manual) Monocytes % (Manual) Seg Neutrophils # Seg Neutrophils # Man Lymphocytes # (Manual) Monocytes # (Manual) APTT Heparin Anti-Xa Level POC ABG pH POC ABG pCO2 POC ABG pO2 Sodium Potassium Chloride Carbon Dioxide BUN 7 L Creatinine 0.5 L Glucose 122 H POC Glucose 147 H 165 H Lactic Acid Calcium 8.2 L Phosphorus Total Bilirubin AST ALT Total Creatine Kinase CK-MB (CK-2) Troponin T Total Protein Albumin Prealbumin HDL Cholesterol Salicylates Acetaminophen Crossmatch 10/29/18 10/29/18 10/30/18 19:50 22:11 00:11 WBC RBC Hgb Hct MCV MCHC RDW Plt Count Lymph % (Auto) [place] % (Auto) [place] # Seg Neutrophils % Seg Neuts % (Manual) Lymphocytes % (Manual) Monocytes % (Manual) Seg Neutrophils # Seg Neutrophils # Man Lymphocytes # (Manual) Monocytes # (Manual) APTT Heparin Anti-Xa Level 0.25 L POC ABG pH POC ABG pCO2 POC ABG pO2 Sodium Potassium Chloride Carbon Dioxide BUN Creatinine Glucose POC Glucose 166 H 173 H Lactic Acid Calcium Phosphorus Total Bilirubin AST ALT Total Creatine Kinase CK-MB (CK-2) Troponin T Total Protein Albumin Prealbumin HDL Cholesterol Salicylates Acetaminophen Crossmatch 10/30/18 10/30/18 10/30/18 04:22 04:22 07:47 WBC 27.0 H RBC 3.16 L Hgb 10.0 L Hct 28.8 L D MCV MCHC 35 H RDW Plt Count Lymph % (Auto) [place] % (Auto) [place] # Seg Neutrophils % Seg Neuts % (Manual) Lymphocytes % (Manual) 1.5 L Monocytes % (Manual) Seg Neutrophils # Seg Neutrophils # Man 18.6 H Lymphocytes # (Manual) 0.4 L Monocytes # (Manual) APTT Heparin Anti-Xa Level POC ABG pH POC ABG pCO2 POC ABG pO2 Sodium Potassium Chloride Carbon Dioxide BUN Creatinine Glucose 224 H POC Glucose 168 H Lactic Acid Calcium 7.5 L Phosphorus Total Bilirubin AST ALT Total Creatine Kinase CK-MB (CK-2) Troponin T Total Protein Albumin Prealbumin HDL Cholesterol Salicylates Acetaminophen Crossmatch 10/30/18 10/30/18 10/30/18 07:55 11:20 16:41 WBC RBC Hgb Hct MCV MCHC RDW Plt Count Lymph % (Auto) [place] % (Auto) [place] # Seg Neutrophils % Seg Neuts % (Manual) Lymphocytes % (Manual) Monocytes % (Manual) Seg Neutrophils # Seg Neutrophils # Man Lymphocytes # (Manual) Monocytes # (Manual) APTT Heparin Anti-Xa Level < 0.10 L POC ABG pH POC ABG pCO2 POC ABG pO2 Sodium Potassium Chloride Carbon Dioxide BUN Creatinine Glucose POC Glucose 165 H 142 H Lactic Acid Calcium Phosphorus Total Bilirubin AST ALT Total Creatine Kinase CK-MB (CK-2) Troponin T Total Protein Albumin Prealbumin HDL Cholesterol Salicylates Acetaminophen Crossmatch 10/30/18 10/30/18 10/31/18 20:51 21:20 05:21 WBC RBC Hgb 9.0 L Hct 26.6 L MCV MCHC RDW Plt Count Lymph % (Auto) [place] % (Auto) [place] # Seg Neutrophils % Seg Neuts % (Manual) Lymphocytes % (Manual) Monocytes % (Manual) Seg Neutrophils # Seg Neutrophils # Man Lymphocytes # (Manual) Monocytes # (Manual) APTT Heparin Anti-Xa Level < 0.10 L POC ABG pH POC ABG pCO2 POC ABG pO2 Sodium Potassium Chloride Carbon Dioxide BUN Creatinine Glucose POC Glucose 136 H Lactic Acid Calcium Phosphorus Total Bilirubin AST ALT Total Creatine Kinase CK-MB (CK-2) Troponin T Total Protein Albumin Prealbumin HDL Cholesterol Salicylates Acetaminophen Crossmatch 10/31/18 10/31/18 10/31/18 08:07 10:19 12:12 WBC RBC Hgb Hct MCV MCHC RDW Plt Count Lymph % (Auto) [place] % (Auto) [place] # Seg Neutrophils % Seg Neuts % (Manual) Lymphocytes % (Manual) Monocytes % (Manual) Seg Neutrophils # Seg Neutrophils # Man Lymphocytes # (Manual) Monocytes # (Manual) APTT Heparin Anti-Xa Level POC ABG pH POC ABG pCO2 POC ABG pO2 Sodium Potassium Chloride Carbon Dioxide BUN Creatinine Glucose POC Glucose 155 H 194 H Lactic Acid Calcium Phosphorus Total Bilirubin AST ALT Total Creatine Kinase CK-MB (CK-2) Troponin T Total Protein Albumin Prealbumin HDL Cholesterol Salicylates Acetaminophen Crossmatch See Detail 10/31/18 10/31/18 10/31/18 16:07 16:56 21:14 WBC RBC Hgb Hct MCV MCHC RDW Plt Count Lymph % (Auto) [place] % (Auto) [place] # Seg Neutrophils % Seg Neuts % (Manual) Lymphocytes % (Manual) Monocytes % (Manual) Seg Neutrophils # Seg Neutrophils # Man Lymphocytes # (Manual) Monocytes # (Manual) APTT Heparin Anti-Xa Level 1.20 H POC ABG pH POC ABG pCO2 POC ABG pO2 Sodium Potassium Chloride Carbon Dioxide BUN Creatinine Glucose POC Glucose 354 H 234 H Lactic Acid Calcium Phosphorus Total Bilirubin AST ALT Total Creatine Kinase CK-MB (CK-2) Troponin T Total Protein Albumin Prealbumin HDL Cholesterol Salicylates Acetaminophen Crossmatch 11/01/18 11/01/18 11/01/18 00:52 05:52 05:52 WBC 12.5 H RBC 2.95 L Hgb 9.1 L Hct 27.4 L MCV MCHC RDW 15.3 H Plt Count Lymph % (Auto) [place] % (Auto) [place] # Seg Neutrophils % Seg Neuts % (Manual) Lymphocytes % (Manual) Monocytes % (Manual) Seg Neutrophils # Seg Neutrophils # Man Lymphocytes # (Manual) Monocytes # (Manual) APTT Heparin Anti-Xa Level 1.53 H POC ABG pH POC ABG pCO2 POC ABG pO2 Sodium Potassium Chloride Carbon Dioxide BUN Creatinine 0.5 L Glucose 169 H POC Glucose Lactic Acid Calcium 8.3 L Phosphorus Total Bilirubin AST ALT Total Creatine Kinase CK-MB (CK-2) Troponin T Total Protein 6.2 L Albumin 2.3 L Prealbumin HDL Cholesterol Salicylates Acetaminophen Crossmatch 11/01/18 11/01/18 11/01/18 08:17 10:57 11:38 WBC RBC Hgb Hct MCV MCHC RDW Plt Count Lymph % (Auto) [place] % (Auto) [place] # Seg Neutrophils % Seg Neuts % (Manual) Lymphocytes % (Manual) Monocytes % (Manual) Seg Neutrophils # Seg Neutrophils # Man Lymphocytes # (Manual) Monocytes # (Manual) APTT Heparin Anti-Xa Level 1.05 H POC ABG pH POC ABG pCO2 POC ABG pO2 Sodium Potassium Chloride Carbon Dioxide BUN Creatinine Glucose POC Glucose 158 H 133 H Lactic Acid Calcium Phosphorus Total Bilirubin AST ALT Total Creatine Kinase CK-MB (CK-2) Troponin T Total Protein Albumin Prealbumin HDL Cholesterol Salicylates Acetaminophen Crossmatch 11/01/18 11/01/18 11/02/18 17:08 21:23 04:56 WBC RBC 3.02 L Hgb 9.5 L Hct 28.0 L MCV MCHC RDW Plt Count Lymph % (Auto) [place] % (Auto) [place] # Seg Neutrophils % Seg Neuts % (Manual) Lymphocytes % (Manual) Monocytes % (Manual) Seg Neutrophils # Seg Neutrophils # Man Lymphocytes # (Manual) Monocytes # (Manual) APTT Heparin Anti-Xa Level POC ABG pH POC ABG pCO2 POC ABG pO2 Sodium Potassium Chloride Carbon Dioxide BUN Creatinine Glucose POC Glucose 156 H 213 H Lactic Acid Calcium Phosphorus Total Bilirubin AST ALT Total Creatine Kinase CK-MB (CK-2) Troponin T Total Protein Albumin Prealbumin HDL Cholesterol Salicylates Acetaminophen Crossmatch 11/02/18 11/02/18 11/02/18 04:56 08:38 11:23 WBC RBC Hgb Hct MCV MCHC RDW Plt Count Lymph % (Auto) [place] % (Auto) [place] # Seg Neutrophils % Seg Neuts % (Manual) Lymphocytes % (Manual) Monocytes % (Manual) Seg Neutrophils # Seg Neutrophils # Man Lymphocytes # (Manual) Monocytes # (Manual) APTT Heparin Anti-Xa Level POC ABG pH POC ABG pCO2 POC ABG pO2 Sodium Potassium Chloride Carbon Dioxide BUN Creatinine 0.5 L Glucose 141 H POC Glucose 173 H 272 H Lactic Acid Calcium 8.2 L Phosphorus Total Bilirubin AST 43 H ALT Total Creatine Kinase CK-MB (CK-2) Troponin T Total Protein 6.1 L Albumin 2.2 L Prealbumin HDL Cholesterol Salicylates Acetaminophen Crossmatch 11/02/18 11/03/18 11/03/18 22:16 04:38 04:38 WBC 11.6 H RBC 3.20 L Hgb 9.8 L Hct 29.2 L MCV MCHC RDW Plt Count Lymph % (Auto) [place] % (Auto) [place] # Seg Neutrophils % Seg Neuts % (Manual) Lymphocytes % (Manual) Monocytes % (Manual) Seg Neutrophils # Seg Neutrophils # Man Lymphocytes # (Manual) Monocytes # (Manual) APTT Heparin Anti-Xa Level POC ABG pH POC ABG pCO2 POC ABG pO2 Sodium 135 L Potassium Chloride Carbon Dioxide BUN Creatinine 0.5 L Glucose 160 H POC Glucose 182 H Lactic Acid Calcium Phosphorus Total Bilirubin AST 46 H ALT Total Creatine Kinase CK-MB (CK-2) Troponin T Total Protein Albumin 2.3 L Prealbumin HDL Cholesterol Salicylates Acetaminophen Crossmatch 11/03/18 11/03/18 11/03/18 07:52 10:59 18:10 WBC RBC Hgb Hct MCV MCHC RDW Plt Count Lymph % (Auto) [place] % (Auto) [place] # Seg Neutrophils % Seg Neuts % (Manual) Lymphocytes % (Manual) Monocytes % (Manual) Seg Neutrophils # Seg Neutrophils # Man Lymphocytes # (Manual) Monocytes # (Manual) APTT Heparin Anti-Xa Level POC ABG pH POC ABG pCO2 POC ABG pO2 Sodium Potassium Chloride Carbon Dioxide BUN Creatinine Glucose POC Glucose 180 H 159 H 169 H Lactic Acid Calcium Phosphorus Total Bilirubin AST ALT Total Creatine Kinase CK-MB (CK-2) Troponin T Total Protein Albumin Prealbumin HDL Cholesterol Salicylates Acetaminophen Crossmatch 11/04/18 11/04/18 11/04/18 07:46 11:42 15:45 WBC 11.5 H RBC 3.41 L Hgb 10.4 L Hct 30.8 L MCV MCHC RDW Plt Count Lymph % (Auto) [place] % (Auto) [place] # Seg Neutrophils % Seg Neuts % (Manual) Lymphocytes % (Manual) Monocytes % (Manual) Seg Neutrophils # Seg Neutrophils # Man Lymphocytes # (Manual) Monocytes # (Manual) APTT Heparin Anti-Xa Level POC ABG pH POC ABG pCO2 POC ABG pO2 Sodium Potassium Chloride Carbon Dioxide BUN Creatinine Glucose POC Glucose 160 H 149 H Lactic Acid Calcium Phosphorus Total Bilirubin AST ALT Total Creatine Kinase CK-MB (CK-2) Troponin T Total Protein Albumin Prealbumin HDL Cholesterol Salicylates Acetaminophen Crossmatch 11/04/18 11/04/18 11/04/18 15:45 15:45 16:41 WBC RBC Hgb Hct MCV MCHC RDW Plt Count Lymph % (Auto) [place] % (Auto) [place] # Seg Neutrophils % Seg Neuts % (Manual) Lymphocytes % (Manual) Monocytes % (Manual) Seg Neutrophils # Seg Neutrophils # Man Lymphocytes # (Manual) Monocytes # (Manual) APTT Heparin Anti-Xa Level POC ABG pH POC ABG pCO2 POC ABG pO2 Sodium 133 L Potassium Chloride 95.6 L Carbon Dioxide BUN Creatinine 0.5 L Glucose 163 H POC Glucose 157 H Lactic Acid Calcium Phosphorus Total Bilirubin AST ALT Total Creatine Kinase CK-MB (CK-2) Troponin T Total Protein Albumin 2.6 L Prealbumin 0.073 L HDL Cholesterol Salicylates Acetaminophen Crossmatch 11/04/18 11/05/18 11/05/18 21:59 08:51 12:13 WBC RBC Hgb Hct MCV MCHC RDW Plt Count Lymph % (Auto) [place] % (Auto) [place] # Seg Neutrophils % Seg Neuts % (Manual) Lymphocytes % (Manual) Monocytes % (Manual) Seg Neutrophils # Seg Neutrophils # Man Lymphocytes # (Manual) Monocytes # (Manual) APTT Heparin Anti-Xa Level POC ABG pH POC ABG pCO2 POC ABG pO2 Sodium Potassium Chloride Carbon Dioxide BUN Creatinine Glucose POC Glucose 195 H 187 H 149 H Lactic Acid Calcium Phosphorus Total Bilirubin AST ALT Total Creatine Kinase CK-MB (CK-2) Troponin T Total Protein Albumin Prealbumin HDL Cholesterol Salicylates Acetaminophen Crossmatch 11/05/18 11/05/18 11/06/18 17:15 20:37 07:00 WBC RBC 3.48 L Hgb 11.2 L Hct 31.8 L MCV MCHC 35 H RDW Plt Count Lymph % (Auto) [place] % (Auto) [place] # Seg Neutrophils % Seg Neuts % (Manual) Lymphocytes % (Manual) Monocytes % (Manual) Seg Neutrophils # Seg Neutrophils # Man Lymphocytes # (Manual) Monocytes # (Manual) APTT Heparin Anti-Xa Level POC ABG pH POC ABG pCO2 POC ABG pO2 Sodium Potassium Chloride Carbon Dioxide BUN Creatinine Glucose POC Glucose 281 H 203 H Lactic Acid Calcium Phosphorus Total Bilirubin AST ALT Total Creatine Kinase CK-MB (CK-2) Troponin T Total Protein Albumin Prealbumin HDL Cholesterol Salicylates Acetaminophen Crossmatch 11/06/18 11/06/18 11/06/18 07:00 07:31 12:45 WBC RBC Hgb Hct MCV MCHC RDW Plt Count Lymph % (Auto) [place] % (Auto) [place] # Seg Neutrophils % Seg Neuts % (Manual) Lymphocytes % (Manual) Monocytes % (Manual) Seg Neutrophils # Seg Neutrophils # Man Lymphocytes # (Manual) Monocytes # (Manual) APTT Heparin Anti-Xa Level POC ABG pH POC ABG pCO2 POC ABG pO2 Sodium 135 L Potassium Chloride 97.3 L Carbon Dioxide BUN Creatinine 0.5 L Glucose 163 H POC Glucose 215 H 183 H Lactic Acid Calcium Phosphorus Total Bilirubin AST ALT Total Creatine Kinase CK-MB (CK-2) Troponin T Total Protein Albumin Prealbumin HDL Cholesterol Salicylates Acetaminophen Crossmatch 11/06/18 11/06/18 11/07/18 17:47 21:05 07:42 WBC RBC Hgb Hct MCV MCHC RDW Plt Count Lymph % (Auto) [place] % (Auto) [place] # Seg Neutrophils % Seg Neuts % (Manual) Lymphocytes % (Manual) Monocytes % (Manual) Seg Neutrophils # Seg Neutrophils # Man Lymphocytes # (Manual) Monocytes # (Manual) APTT Heparin Anti-Xa Level POC ABG pH POC ABG pCO2 POC ABG pO2 Sodium Potassium Chloride Carbon Dioxide BUN Creatinine Glucose POC Glucose 141 H 223 H 168 H Lactic Acid Calcium Phosphorus Total Bilirubin AST ALT Total Creatine Kinase CK-MB (CK-2) Troponin T Total Protein Albumin Prealbumin HDL Cholesterol Salicylates Acetaminophen Crossmatch 11/07/18 11/07/18 11/07/18 11:37 16:21 21:39 WBC RBC Hgb Hct MCV MCHC RDW Plt Count Lymph % (Auto) [place] % (Auto) [place] # Seg Neutrophils % Seg Neuts % (Manual) Lymphocytes % (Manual) Monocytes % (Manual) Seg Neutrophils # Seg Neutrophils # Man Lymphocytes # (Manual) Monocytes # (Manual) APTT Heparin Anti-Xa Level POC ABG pH POC ABG pCO2 POC ABG pO2 Sodium Potassium Chloride Carbon Dioxide BUN Creatinine Glucose POC Glucose 120 H 169 H 127 H Lactic Acid Calcium Phosphorus Total Bilirubin AST ALT Total Creatine Kinase CK-MB (CK-2) Troponin T Total Protein Albumin Prealbumin HDL Cholesterol Salicylates Acetaminophen Crossmatch 11/08/18 11/08/18 11/08/18 11:48 16:32 16:32 WBC 11.3 H RBC 3.40 L Hgb 10.3 L Hct 30.5 L MCV MCHC RDW Plt Count 465 H Lymph % (Auto) [place] % (Auto) 9.3 H [place] # 1.0 H Seg Neutrophils % 73.1 H Seg Neuts % (Manual) Lymphocytes % (Manual) Monocytes % (Manual) Seg Neutrophils # 8.3 H Seg Neutrophils # Man Lymphocytes # (Manual) Monocytes # (Manual) APTT Heparin Anti-Xa Level POC ABG pH POC ABG pCO2 POC ABG pO2 Sodium 133 L Potassium Chloride 96.7 L Carbon Dioxide BUN Creatinine 0.4 L Glucose 187 H POC Glucose 144 H Lactic Acid Calcium Phosphorus Total Bilirubin AST ALT Total Creatine Kinase CK-MB (CK-2) Troponin T Total Protein Albumin Prealbumin HDL Cholesterol Salicylates Acetaminophen Crossmatch 11/08/18 11/09/18 11/09/18 16:52 01:48 06:06 WBC 12.7 H RBC 3.47 L Hgb 10.5 L Hct 31.5 L MCV MCHC RDW Plt Count 452 H Lymph % (Auto) [place] % (Auto) 10.9 H [place] # 1.4 H Seg Neutrophils % Seg Neuts % (Manual) Lymphocytes % (Manual) Monocytes % (Manual) Seg Neutrophils # 8.9 H Seg Neutrophils # Man Lymphocytes # (Manual) Monocytes # (Manual) APTT Heparin Anti-Xa Level POC ABG pH POC ABG pCO2 POC ABG pO2 Sodium Potassium Chloride Carbon Dioxide BUN Creatinine Glucose POC Glucose 220 H 146 H Lactic Acid Calcium Phosphorus Total Bilirubin AST ALT Total Creatine Kinase CK-MB (CK-2) Troponin T Total Protein Albumin Prealbumin HDL Cholesterol Salicylates Acetaminophen Crossmatch 11/09/18 11/09/18 11/09/18 06:06 07:36 12:28 WBC RBC Hgb Hct MCV MCHC RDW Plt Count Lymph % (Auto) [place] % (Auto) [place] # Seg Neutrophils % Seg Neuts % (Manual) Lymphocytes % (Manual) Monocytes % (Manual) Seg Neutrophils # Seg Neutrophils # Man Lymphocytes # (Manual) Monocytes # (Manual) APTT Heparin Anti-Xa Level POC ABG pH POC ABG pCO2 POC ABG pO2 Sodium 129 L Potassium Chloride 94.5 L Carbon Dioxide BUN Creatinine 0.4 L Glucose 136 H POC Glucose 133 H 193 H Lactic Acid Calcium Phosphorus Total Bilirubin AST ALT Total Creatine Kinase CK-MB (CK-2) Troponin T Total Protein Albumin Prealbumin HDL Cholesterol Salicylates Acetaminophen Crossmatch 11/09/18 11/10/18 11/10/18 21:14 06:27 06:27 WBC RBC 3.50 L Hgb 10.7 L Hct 31.2 L MCV MCHC RDW Plt Count 496 H Lymph % (Auto) [place] % (Auto) 11.8 H [place] # 1.2 H Seg Neutrophils % Seg Neuts % (Manual) Lymphocytes % (Manual) Monocytes % (Manual) Seg Neutrophils # Seg Neutrophils # Man Lymphocytes # (Manual) Monocytes # (Manual) APTT Heparin Anti-Xa Level POC ABG pH POC ABG pCO2 POC ABG pO2 Sodium 135 L Potassium Chloride 97.2 L Carbon Dioxide BUN Creatinine 0.4 L Glucose 137 H POC Glucose 125 H Lactic Acid Calcium Phosphorus Total Bilirubin AST ALT Total Creatine Kinase CK-MB (CK-2) Troponin T Total Protein Albumin Prealbumin HDL Cholesterol Salicylates Acetaminophen Crossmatch 11/10/18 11/10/18 11/10/18 09:01 17:47 22:10 WBC RBC Hgb Hct MCV MCHC RDW Plt Count Lymph % (Auto) [place] % (Auto) [place] # Seg Neutrophils % Seg Neuts % (Manual) Lymphocytes % (Manual) Monocytes % (Manual) Seg Neutrophils # Seg Neutrophils # Man Lymphocytes # (Manual) Monocytes # (Manual) APTT Heparin Anti-Xa Level POC ABG pH POC ABG pCO2 POC ABG pO2 Sodium Potassium Chloride Carbon Dioxide BUN Creatinine Glucose POC Glucose 145 H 179 H 178 H Lactic Acid Calcium Phosphorus Total Bilirubin AST ALT Total Creatine Kinase CK-MB (CK-2) Troponin T Total Protein Albumin Prealbumin HDL Cholesterol Salicylates Acetaminophen Crossmatch 11/11/18 11/11/18 07:44 12:18 WBC RBC Hgb Hct MCV MCHC RDW Plt Count Lymph % (Auto) [place] % (Auto) [place] # Seg Neutrophils % Seg Neuts % (Manual) Lymphocytes % (Manual) Monocytes % (Manual) Seg Neutrophils # Seg Neutrophils # Man Lymphocytes # (Manual) Monocytes # (Manual) APTT Heparin Anti-Xa Level POC ABG pH POC ABG pCO2 POC ABG pO2 Sodium Potassium Chloride Carbon Dioxide BUN Creatinine Glucose POC Glucose 112 H 206 H Lactic Acid Calcium Phosphorus Total Bilirubin AST ALT Total Creatine Kinase CK-MB (CK-2) Troponin T Total Protein Albumin Prealbumin HDL Cholesterol Salicylates Acetaminophen Crossmatch Allied health notes reviewed: nursing
[2018-11-11] MEDS: PERCOCET 5/325 PO PRN (22:09)
[2018-11-12] MEDS: DUONEB *Not for PRN Use IH SCH ×3 (07:49→20:10)
--- NOTE | 2018-11-12 08:54 | Progress Note ---
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 followed by revascularization right leg on 10/31/18. Vascular surgery feels the patient will need evaluation of his devascularized skin along the lateral aspect of his left stump. Left below-knee amputation stump site is looking marginal. It does not appear to be salvageable and will require above-knee amputation conversion today. -Acute/subacute right CVA, Initial CT head, no acute finding, 10/13/18 found to have left-sided weakness, MRI brain showed numerous acute/subacute multilobar infarcts involving the cerebrum and cerebellum including Hemorrhagic transformation of the right frontal and biparietal lobes, was Not a candidate for tPA, monitor off aspirin per teleneurology, QUIQUE ; no thrombus or shunt, -Severe sepsis with shock; resolved. Probably due to LLL aspiration pneumonia, completed total 7 days of antibiotics, off vasopressors -Paroxysmal atrial fibrillation. on Eliquis Cardiology is following -LLL pneumonia: completed treatment -Acute respiratory failure with hypoxia and hypercapnia: Requiring intubation, s/p extubation, treat with nebs and supplemental O2 as needed -DKA, resolved: cont SSI for now, diabetic diet -Acute toxic/metabolic encephalopathy, improved -Seizure disorder; seizure precautions, no new episodes of seizure, Ativan when necessary, neurology did not recommend antiepileptic medications -Elevated troponin/NSTEMI type 2, Echocardiogram for further evaluation - Ef 25- 30%, Cardiology consulted, medical Mx for now, -Acute systolic CHF, Ef 25-30%, anti-failure medications, Cardiology is following -Chronic hypotension. Consider Midodrine. -ARF. Etiology secondary to ATN and vasomotor nephropathy, poa, resolved -Hyperkalemia, resolved -Abnormal LFT, Probably due to sepsis, resolving and chronic hepatitis C virus infection, Abdominal US showed no sign of cirrhosis: monitor cmp -Anemia, appears acute on chronic AOCD: monitor closely on iv heparin drip -Severe protein calorie malnutrition, bmi 14.8; nutrition supplements, Dietitian consulted -DVT prophylaxis with Eliquis -GI prophylaxis with famotidine -Tobacco abuse. Patient with a long smoking history of one pack per day or more since age 9. Patient was counseled on smoking cessation. -Disposition: continue inpatient care. Possible rehab vs Subacute rehab placement==>Physical therapy recommended Subacute Rehab but re-evaluation pending. History Interval history: Patient is a 58 yo man with a history of COPD, DM, hypertension, asthma, peripheral neuropathy, chronic hepatitis C virus, panic attack. anxiety disorder, polysubstance abuse including alcohol, cocaine and heroin who presented to [facility] ED on 10/11/18 with AMS. He was diagnosis with septic shock due to pneumonia, placed on abx and vasopressors. He was also diagnosis with DKA/respiratory failure/Status epilepticus/ARF. Patient s/p left BKA, right open thrombectomy and aortic stenting and bilateral common iliac artery stenting but right EIA occluded requiring another open thrombectomy and stenting of the right iliac system. Vascular surgery felt patient will need evaluation of his devascularized skin along the lateral aspect of his left stump. Left below-knee amputation stump site is looking marginal and is not salvageable and will require above-knee amputation conversion today. No new issues overnight. Hospitalist Physical - Constitutional Vitals: Temp Pulse Resp BP Pulse Ox 98.1 F 69 18 111/65 97 11/12/18 06:17 11/12/18 08:07 11/12/18 08:07 11/12/18 06:17 11/12/18 06:17 General appearance: Present: no acute distress - EENT Eyes: Present: PERRL, EOM intact ENT: hearing intact, clear oral mucosa, dentition normal - Neck Neck: Present: supple, normal ROM - Respiratory Respiratory effort: normal Respiratory: bilateral: CTA - Cardiovascular Rhythm: regular Heart Sounds: Present: S1 & S2. Absent: gallop, rub - Extremities Extremities: No edema, Full ROM Extremity abnormal: black, other (ischemic necrotic toes right lower extremity, left BKA) - Abdominal General gastrointestinal: soft, non-tender, non-distended, normal bowel sounds - Integumentary Integumentary: Present: clear, warm, dry - Neurologic Neurologic: CNII-XII intact, moves all extremities Results - Labs CBC & Chem 7: 11/10/18 06:27 11/10/18 06:27 Labs: Laboratory Last Values WBC 10.6 K/mm3 (4.5-11.0) 11/10/18 06:27 RBC 3.50 M/mm3 (3.65-5.03) L 11/10/18 06:27 Hgb 10.7 gm/dl (11.8-15.2) L 11/10/18 06:27 Hct 31.2 % (35.5-45.6) L 11/10/18 06:27 MCV 89 fl (84-94) 11/10/18 06:27 MCH 31 pg (28-32) 11/10/18 06:27 MCHC 34 % (32-34) 11/10/18 06:27 RDW 14.1 % (13.2-15.2) 11/10/18 06:27 Plt Count 496 K/mm3 (140-440) H 11/10/18 06:27 Lymph % (Auto) 16.3 % (13.4-35.0) 11/10/18 06:27 [place] % (Auto) 11.8 % (0.0-7.3) H 11/10/18 06:27 Eos % (Auto) 1.3 % (0.0-4.3) 11/10/18 06:27 Baso % (Auto) 0.8 % (0.0-1.8) 11/10/18 06:27 Lymph # 1.7 K/mm3 (1.2-5.4) 11/10/18 06:27 [place] # 1.2 K/mm3 (0.0-0.8) H 11/10/18 06:27 Eos # 0.1 K/mm3 (0.0-0.4) 11/10/18 06:27 Baso # 0.1 K/mm3 (0.0-0.1) 11/10/18 06:27 Add Manual Diff Complete 10/30/18 04:22 Total Counted 200 10/30/18 04:22 Seg Neutrophils % 69.8 % (40.0-70.0) 11/10/18 06:27 Seg Neuts % (Manual) 69.0 % (40.0-70.0) 10/30/18 04:22 26.0 % 10/30/18 04:22 1.5 % (13.4-35.0) L 10/30/18 04:22 Reactive Lymphs % (Man) 0 % 10/30/18 04:22 2.0 % (0.0-7.3) 10/30/18 04:22 0 % (0.0-4.3) 10/30/18 04:22 0 % (0.0-1.8) 10/30/18 04:22 1.0 % 10/30/18 04:22 0.5 % 10/30/18 04:22 0 % 10/30/18 04:22 0 % 10/30/18 04:22 Nucleated RBC % Not Reportable 10/30/18 04:22 Seg Neutrophils # 7.4 K/mm3 (1.8-7.7) 11/10/18 06:27 Seg Neutrophils # Man 18.6 K/mm3 (1.8-7.7) H 10/30/18 04:22 Band Neutrophils # 7.0 K/mm3 10/30/18 04:22 0.4 K/mm3 (1.2-5.4) L 10/30/18 04:22 Abs React Lymphs (Man) 0.0 K/mm3 10/30/18 04:22 0.5 K/mm3 (0.0-0.8) 10/30/18 04:22 0.0 K/mm3 (0.0-0.4) 10/30/18 04:22 0.0 K/mm3 (0.0-0.1) 10/30/18 04:22 0.3 K/mm3 10/30/18 04:22 0.1 K/mm3 10/30/18 04:22 0.0 K/mm3 10/30/18 04:22 Blast Cells # 0.0 K/mm3 10/30/18 04:22 Pathologist Review 10/11/18 00:16 WBC Morphology Not Reportable 10/30/18 04:22 WBC Morphology TNR 10/30/18 04:22 Hypersegmented Neuts Not Reportable 10/30/18 04:22 Hyposegmented Neuts Not Reportable 10/30/18 04:22 Hypogranular Neuts Not Reportable 10/30/18 04:22 Not Reportable 10/30/18 04:22 Not Reportable 10/30/18 04:22 Not Reportable 10/30/18 04:22 Not Reportable 10/30/18 04:22 Not Reportable 10/30/18 04:22 Not Reportable 10/30/18 04:22 Consistent w auto 10/30/18 04:22 Not Reportable 10/30/18 04:22 Plt Clumps, EDTA Not Reportable 10/30/18 04:22 Not Reportable 10/30/18 04:22 Not Reportable 10/30/18 04:22 Not Reportable 10/30/18 04:22 Plt Morphology Comment Not Reportable 10/30/18 04:22 RBC Morphology Not Reportable 10/30/18 04:22 Dimorphic RBCs Not Reportable 10/30/18 04:22 Not Reportable 10/30/18 04:22 Not Reportable 10/30/18 04:22 Not Reportable 10/30/18 04:22 Not Reportable 10/30/18 04:22 Not Reportable 10/30/18 04:22 Not Reportable 10/30/18 04:22 Not Reportable 10/30/18 04:22 Not Reportable 10/30/18 04:22 Not Reportable 10/30/18 04:22 Not Reportable 10/30/18 04:22 Not Reportable 10/30/18 04:22 Not Reportable 10/30/18 04:22 Not Reportable 10/30/18 04:22 Not Reportable 10/30/18 04:22 Not Reportable 10/30/18 04:22 Not Reportable 10/30/18 04:22 Not Reportable 10/30/18 04:22 Not Reportable 10/30/18 04:22 Not Reportable 10/30/18 04:22 Acanthocytes (Spur) Not Reportable 10/30/18 04:22 Rouleaux Not Reportable 10/30/18 04:22 Not Reportable 10/30/18 04:22 Not Reportable 10/30/18 04:22 Not Reportable 10/30/18 04:22 Not Reportable 10/30/18 04:22 Hem Pathologist Commnt No 10/30/18 04:22 PT 13.9 Sec. (12.2-14.9) 10/29/18 07:11 INR 1.01 (0.87-1.13) 10/29/18 07:11 APTT 30.3 Sec. (24.2-36.6) 10/27/18 13:33 Heparin Anti-Xa Level 1.05 U.I./ml (0.3-0.7) H 11/01/18 11:38 Heparin Anti-Xa, Unfract Negative (Negative) 10/15/18 12:00 POC ABG pH 7.393 (7.35-7.45) 10/16/18 12:51 POC ABG pCO2 48.9 (35-45) H 10/16/18 12:51 POC ABG pO2 92 (80-105) 10/16/18 12:51 POC ABG HCO3 29.8 (22-26 mml/L) 10/16/18 12:51 POC ABG Total CO2 31 (23-27mmol/L) 10/16/18 12:51 POC ABG O2 Sat 97 10/16/18 12:51 POC ABG Base Excess 5 ((-2) - (+3)mmol/L) 10/16/18 12:51 35 % 10/16/18 12:51 Sodium 135 mmol/L (137-145) L 11/10/18 06:27 Potassium 4.1 mmol/L (3.6-5.0) 11/10/18 06:27 Chloride 97.2 mmol/L (98-107) L 11/10/18 06:27 Carbon Dioxide 27 mmol/L (22-30) 11/10/18 06:27 15 mmol/L 11/10/18 06:27 BUN 11 mg/dL (9-20) 11/10/18 06:27 0.4 mg/dL (0.8-1.5) L 11/10/18 06:27 Estimated GFR > 60 ml/min 11/10/18 06:27 28 % 11/10/18 06:27 Glucose 137 mg/dL (75-100) H 11/10/18 06:27 POC Glucose 157 (70-105) H 11/12/18 08:01 Lactic Acid 2.70 mmol/L (0.7-2.0) H* 10/11/18 12:30 Calcium 8.7 mg/dL (8.4-10.2) 11/10/18 06:27 Phosphorus 2.80 mg/dL (2.5-4.5) 10/21/18 04:59 Magnesium 1.70 mg/dL (1.7-2.3) 11/01/18 05:52 0.70 mg/dL (0.1-1.2) 11/04/18 15:45 AST 38 units/L (5-40) 11/04/18 15:45 ALT 23 units/L (7-56) 11/04/18 15:45 54 units/L (35-129) 11/04/18 15:45 3647 units/L (55-170) H 10/12/18 04:04 CK-MB (CK-2) 48.3 ng/mL (0.0-4.0) H 10/12/18 04:04 CK-MB (CK-2) Rel Index 1.3 (0-4) 10/12/18 04:04 0.816 ng/mL (0.00-0.029) H* 10/13/18 16:15 6.8 g/dL (6.3-8.2) 11/04/18 15:45 2.6 g/dL (3.9-5) L 11/04/18 15:45 0.6 % 11/04/18 15:45 0.073 g/L (0.200-0.400) L 11/04/18 15:45 Triglycerides 87 mg/dL (2-149) 10/11/18 00:16 Cholesterol 73 mg/dL (50-199) 10/11/18 00:16 51 mg/dL (50-130) 10/11/18 00:16 19 mg/dL (40-59) L 10/11/18 00:16 3.84 % 10/11/18 00:16 See scanned report 10/15/18 12:00 Yellow (Yellow) 10/11/18 01:42 Cloudy (Clear) 10/11/18 01:42 6.0 (5.0-7.0) 10/11/18 01:42 Ur Specific [place] 1.011 (1.003-1.030) 10/11/18 01:42 100 mg/dl mg/dL (Negative) 10/11/18 01:42 >=500 mg/dL (Negative) 10/11/18 01:42 Neg mg/dL (Negative) 10/11/18 01:42 Mod (Negative) 10/11/18 01:42 Neg (Negative) 10/11/18 01:42 Neg (Negative) 10/11/18 01:42 4.0 mg/dL (<2.0) 10/11/18 01:42 Ur Leukocyte Esterase Neg (Negative) 10/11/18 01:42 5.0 /HPF (0.0-6.0) 10/11/18 01:42 2.0 /HPF (0.0-6.0) 10/11/18 01:42 U Epithel Cells (Auto) < 1.0 /HPF (0-13.0) 10/11/18 01:42 Amorphous Crystals 1+ 10/11/18 01:42 Few /HPF 10/11/18 01:42 2+ /HPF (SILK OPENER) 10/11/18 01:42 Vancomycin Trough 8.3 ug/mL (5.0-20.0) 10/13/18 05:40 Salicylates < 0.3 mg/dL (2.8-20.0) L 10/11/18 00:16 Presumptive positive 10/11/18 01:42 Presumptive negative 10/11/18 01:42 Acetaminophen < 5.0 ug/mL (10.0-30.0) L 10/11/18 00:16 Ur Barbiturates Screen Presumptive negative 10/11/18 01:42 Ur Phencyclidine Scrn Presumptive negative 10/11/18 01:42 Ur Amphetamines Screen Presumptive positive 10/11/18 01:42 U Benzodiazepines Scrn Presumptive positive 10/11/18 01:42 Presumptive negative 10/11/18 01:42 U Marijuana (THC) Screen Presumptive negative 10/11/18 01:42 Disclamer 10/11/18 01:42 Plasma/Serum Alcohol < 0.01 % (0-0.07) 10/11/18 00:16 Heparin-induced Plt Ab Negative (Negative) 10/15/18 12:00 UF Heparin High Dose 0 % Release 10/15/18 12:00 AURELIO UFH Low Dose 0.1 0 % Release 10/15/18 12:00 AURELIO UFH Low Dose 0.5 0 % Release 10/15/18 12:00 Blood Type O POSITIVE 10/31/18 08:07 Antibody Screen Positive 10/31/18 08:07 Antibody Identification Negative 10/31/18 08:07 Direct Antiglob Test Negative 10/31/18 08:07 SHASHANK, Poly Interpret Negative 10/31/18 08:07 Crossmatch See Detail 10/31/18 08:07 Active Medications - Current Medications Current Medications: Generic Name Dose Route Start Last Admin Trade Name Freq PRN Reason Stop Dose Admin Acetaminophen 650 mg 10/11/18 04:04 10/21/18 22:21 Tylenol PO 650 mg Q4H PRN Administration Pain MILD(1-3)/Fever >100.5/HOLLINS Albuterol 2.5 mg 10/19/18 00:54 Proventil IH Q4HRT PRN Shortness Of Breath Albuterol/Ipratropium 1 ampul 10/19/18 08:00 11/12/18 07:49 Duoneb *Not For Prn Use* IH 1 ampul TIDRT ISAAC Administration Alprazolam 1 mg 10/20/18 13:06 11/10/18 22:35 Xanax PO 1 mg TID PRN Administration Anxiety Apixaban 5 mg 11/08/18 22:00 11/11/18 22:09 Eliquis PO 5 mg Q12HR ISAAC Administration Protocol Aspirin 81 mg 11/01/18 16:00 11/11/18 12:12 Halfprin Ec PO 81 mg QDAY ISAAC Administration Buprenorphine HCl 2 each 11/05/18 10:00 11/11/18 13:59 Suboxone 2 Mg-0.5 Mg SL 2 each QDAY ISAAC Administration Citalopram Hydrobromide 20 mg 11/05/18 10:00 11/11/18 12:12 Celexa PO 20 mg QDAY ISAAC Administration Dextrose 0 ml 10/11/18 03:57 10/11/18 10:18 D50w (25gm) Syringe IV 10 ml PRN PRN Administration Hypoglycemia Docusate Sodium 100 mg 11/04/18 22:00 11/11/18 22:09 Colace PO 100 mg BID ISAAC Administration Famotidine 20 mg 10/15/18 10:00 11/11/18 22:09 Pepcid PO 20 mg BID ISAAC Administration Insulin Human Regular 0 units 10/17/18 11:30 11/11/18 23:52 Humulin R SUB-Q 3 units ACHS ISAAC Administration Protocol Metoprolol Tartrate 25 mg 10/18/18 22:00 11/11/18 22:11 Lopressor PO Not Given BID ISAAC Metoprolol Tartrate 2.5 mg 10/18/18 18:51 10/18/18 22:19 Lopressor IV 2.5 mg Q6H PRN Administration Tachyarrhythmias Naloxone HCl 0.1 mg 10/29/18 16:03 Narcan 0.4 Mg/1 Ml IV Q2MIN PRN Res Rate </= 8 or 02 SAT < 92% Ondansetron HCl 4 mg 10/11/18 04:04 11/01/18 22:12 Zofran IV 4 mg Q8H PRN Administration Nausea And Vomiting Oxycodone/Acetaminophen 1 tab 11/11/18 10:21 11/11/18 22:09 Percocet 5/325 PO 1 tab Q4H PRN Administration Pain, Moderate (4-6) Nutrition/Malnutrition Assess - Dietary Evaluation Nutrition/Malnutrition Findings: Nutrition Notes Start: 10/11/18 12:39 Freq: Status: Active Protocol: Document 11/06/18 16:04 SHERLY (Rec: 11/06/18 16:14 SHERLY [email or web address] [email or web address]) Nutrition Notes Initial or Follow up Reassessment Current Diagnosis COPD,Diabetes,Sepsis, Hypertension,Heart Failure, Stroke Other Pertinent Diagnosis s/p (L) BKA Current Diet Mech soft + Glucerna and Hernesto BID Labs/Tests BG 163 Pertinent Medications Reviewed Height 6 ft 3 in Weight 55.2 kg [place] Body Weight (kg) 89.09 BMI 15.2 Weight change and time frame Current wt obtained from bed scale. Adj wt for BKA: 58.66kg Adj BMI: 16.1 Subjective/Other Information Pt has consumed 55% of meals over the past two days. He is confused at times and requires assistance during meal times. RD assisted pt with lunch today; he ate <25% of meal. He is edentulous, but does not want pureed foods. Takes him a long time to chew foods. Pt encouraged to drink ONS ( Glucerna and Hernesto) Percent of energy/protein needs met: 62% energy 66% pro (without ONS) Burn Absent Trauma Absent #2 Nutrition Diagnosis Inadequate oral intake Diagnosis Progress(for reassessment Continues documentation) #1 Nutrition Diagnosis Malnutrition Diagnosis Progress(for reassessment Continues documentation) Is patient on ventilator? No Is Patient Ambulatory and/or Out of Bed Yes REE-([facility]-ambulatory/OOB) [ 1907.919 [id number]] Kcal/Kg value to use for calculation 40 Approximate Energy Requirements Using 2208 kcal/Kg Calculation Used for Recommendations Kcal/kg Additional Notes Pro needs 1.5-2g/k-110g/ day Fluid needs 1ml/kcal Nutrition Intervention Change Diet Order: Continue current diet order Add Supplement/Snack (indicate name/kcal Glucerna BID + [place] BID /protein ) Provides kCal: 630 Provides Protein (gm) 25 Goal #1 PO intake of meals plus ONS to meet 100% energy and pro needs Goal #2 Wt maintenance and/or gain Follow-Up By: 11/13/18 Additional Comments F/U: intakes, wt
[2018-11-12] MEDS: COLACE PO SCH ×2 (09:00→22:03)
[2018-11-12] MEDS: PERCOCET 5/325 PO PRN ×2 (09:00→23:19)
[2018-11-12] MEDS: PEPCID PO SCH ×2 (09:01→22:03)
[2018-11-12] MEDS: celeXA PO SCH (09:01)
[2018-11-12] MEDS: XANAX PO PRN (09:01)
[2018-11-12] MEDS: HumuLIN R SUB-Q SCH ×4 (09:01→21:58)
[2018-11-12] MEDS: ELIQUIS PO SCH (09:02)
[2018-11-12] MEDS: LOPRESSOR PO SCH ×2 (09:02→21:59)
[2018-11-12] MEDS: HALFPRIN EC PO SCH (09:12)
[2018-11-12] MEDS ORDERED: HEPARIN/ 0.45% NACL-25,000 UNIT/500 ML 25,000 UNIT/500 ML BAG IV SCH (12:30)
[2018-11-12 13:14] LABS: Hematocrit 31.2 % (35.5-45.6); Hemoglobin 10.7 gm/dl (11.8-15.2)
[2018-11-12] MEDS: SUBOXONE 2 MG-0.5 MG SL SCH (13:19)
[2018-11-12 13:25] LABS: INR 1.2 (0.87-1.13)
[2018-11-12 13:26] LABS: Partial Thromboplastin Time 32.9 Sec. (24.2-36.6)
--- NOTE | 2018-11-12 14:17 | Progress Note ---
Assessment and Plan Patient sleeping at this time. Resting on room air. O2 saturation 97%. Patient weak. No acute respiratory distress.Patient afebrile. No Leukocytosis. - Patient Problems (1) Acute respiratory failure Current Visit: Yes Status: Acute Plan to address problem: Albuterol/atrovent aerosol treatments q 6 hours. Patient is on I/V Heparin. Continue famotidine. (2) Acute CVA (cerebrovascular accident) Current Visit: Yes Status: Acute Plan to address problem: Management as per neurology. (3) Altered mental state Current Visit: Yes Status: Acute Qualifiers: Altered mental status type: unspecified Qualified Code(s): R41.82 - Altered mental status, unspecified Plan to address problem: Management as per primary care. (4) Atrial fibrillation Current Visit: Yes Status: Acute Plan to address problem: Management as per primary care and cardiology. Patient is on I/V Heparin. (5) Diabetes mellitus with hyperglycemia Current Visit: Yes Status: Acute Plan to address problem: Management as per primary care. (6) Polysubstance abuse Current Visit: Yes Status: Chronic Plan to address problem: Management as per primary care. (7) Tobacco use Current Visit: Yes Status: Chronic Plan to address problem: Counselled to stop smoking. Subjective Date of service: 11/12/18 Principal diagnosis: Ac hypercapnic hypoxemic Resp failure; Drug OD; AE-COPD; NINOSKA; Seizures Interval history: Patient sleeping at this time. Resting on room air. O2 saturation 97%. Patient weak. No acute respiratory distress.Patient afebrile. No Leukocytosis. Objective Vital Signs - 12hr 11/12/18 11/12/18 11/12/18 06:17 07:50 08:07 Temperature 98.1 F Pulse Rate 66 Pulse Rate [ 60 69 Throughout] Respiratory 18 Rate Respiratory 16 18 Rate [ Throughout] Blood Pressure 111/65 O2 Sat by Pulse 97 Oximetry 11/12/18 11/12/18 09:00 12:02 Temperature 98.5 F Pulse Rate 71 Pulse Rate [ Throughout] Respiratory 20 16 Rate Respiratory Rate [ Throughout] Blood Pressure 113/74 O2 Sat by Pulse 97 Oximetry Constitutional: no acute distress, asleep, other (middle aged but chronically i ll looking CM; Atraumatic) Eyes: non-icteric ENT: oropharynx moist, other (mallampati 2) Neck: supple, no lymphadenopathy, no JVD Effort: normal Ascultation: Bilateral: diminished breath sounds, rhonchi (scant) Percussion: Bilateral: not dull Cardiovascular: irregular rhythm, other (No R/M) Gastrointestinal: normoactive bowel sounds, soft, non-tender, non-distended Integumentary: other (s/p left BKA) Extremities: no edema, other (S/P Left BKA) Neurologic: normal mental status, pupils equal and round, other (Left hemipar esis, improving) Psychiatric: mood appropriate, affect normal CBC and BMP: 11/12/18 12:29 11/10/18 06:27 ABG, PT/INR, D-dimer: ABG POC ABG pH 7.393 (7.35-7.45) 10/16/18 12:51 POC ABG pCO2 48.9 (35-45) H 10/16/18 12:51 POC ABG pO2 92 (80-105) 10/16/18 12:51 POC ABG HCO3 29.8 (22-26 mml/L) 10/16/18 12:51 POC ABG Total CO2 31 (23-27mmol/L) 10/16/18 12:51 POC ABG O2 Sat 97 10/16/18 12:51 PT/INR, D-dimer PT 16.0 Sec. (12.2-14.9) H 11/12/18 12:29 INR 1.20 (0.87-1.13) H 11/12/18 12:29 Abnormal lab findings: Abnormal Labs 10/11/18 10/11/18 10/11/18 00:16 00:16 00:16 WBC 20.1 H RBC Hgb Hct MCV 98 H MCHC RDW 15.4 H Plt Count Lymph % (Auto) [place] % (Auto) [place] # Seg Neutrophils % Seg Neuts % (Manual) Lymphocytes % (Manual) 5.0 L Monocytes % (Manual) 25.0 H Seg Neutrophils # Seg Neutrophils # Man 9.2 H Lymphocytes # (Manual) 1.0 L Monocytes # (Manual) 5.0 H PT INR APTT Heparin Anti-Xa Level POC ABG pH POC ABG pCO2 POC ABG pO2 Sodium Potassium 5.8 H Chloride Carbon Dioxide 17 L BUN Creatinine 2.2 H Glucose 348 H POC Glucose Lactic Acid 13.70 H* Calcium 7.7 L Phosphorus Total Bilirubin 1.50 H AST 179 H ALT 110 H Total Creatine Kinase 324 H CK-MB (CK-2) Troponin T 0.257 H* Total Protein 5.9 L Albumin 2.9 L Prealbumin HDL Cholesterol 19 L Salicylates Acetaminophen Crossmatch 10/11/18 10/11/18 10/11/18 00:16 00:16 01:21 WBC RBC Hgb Hct MCV MCHC RDW Plt Count Lymph % (Auto) [place] % (Auto) [place] # Seg Neutrophils % Seg Neuts % (Manual) Lymphocytes % (Manual) Monocytes % (Manual) Seg Neutrophils # Seg Neutrophils # Man Lymphocytes # (Manual) Monocytes # (Manual) PT INR APTT Heparin Anti-Xa Level POC ABG pH 7.110 L POC ABG pCO2 50.3 H POC ABG pO2 65 L Sodium Potassium Chloride Carbon Dioxide BUN Creatinine Glucose POC Glucose Lactic Acid Calcium Phosphorus Total Bilirubin AST ALT Total Creatine Kinase CK-MB (CK-2) Troponin T Total Protein Albumin Prealbumin HDL Cholesterol Salicylates < 0.3 L Acetaminophen < 5.0 L Crossmatch 10/11/18 10/11/18 10/11/18 01:22 03:27 04:14 WBC RBC Hgb Hct MCV MCHC RDW Plt Count Lymph % (Auto) [place] % (Auto) [place] # Seg Neutrophils % Seg Neuts % (Manual) Lymphocytes % (Manual) Monocytes % (Manual) Seg Neutrophils # Seg Neutrophils # Man Lymphocytes # (Manual) Monocytes # (Manual) PT INR APTT Heparin Anti-Xa Level POC ABG pH POC ABG pCO2 POC ABG pO2 Sodium Potassium Chloride Carbon Dioxide BUN Creatinine Glucose POC Glucose Lactic Acid 8.50 H* 4.10 H* Calcium Phosphorus 4.90 H Total Bilirubin AST ALT Total Creatine Kinase CK-MB (CK-2) Troponin T Total Protein Albumin Prealbumin HDL Cholesterol Salicylates Acetaminophen Crossmatch 10/11/18 10/11/18 10/11/18 04:14 04:14 04:14 WBC RBC Hgb Hct MCV MCHC RDW Plt Count Lymph % (Auto) [place] % (Auto) [place] # Seg Neutrophils % Seg Neuts % (Manual) Lymphocytes % (Manual) Monocytes % (Manual) Seg Neutrophils # Seg Neutrophils # Man Lymphocytes # (Manual) Monocytes # (Manual) PT INR APTT Heparin Anti-Xa Level POC ABG pH POC ABG pCO2 POC ABG pO2 Sodium Potassium 5.6 H Chloride Carbon Dioxide 19 L BUN Creatinine 1.6 H Glucose 329 H POC Glucose 328 H Lactic Acid Calcium 7.3 L Phosphorus Total Bilirubin AST ALT Total Creatine Kinase CK-MB (CK-2) Troponin T 1.130 H* D Total Protein Albumin Prealbumin HDL Cholesterol Salicylates Acetaminophen Crossmatch 10/11/18 10/11/18 10/11/18 05:10 05:32 05:58 WBC RBC Hgb Hct MCV MCHC RDW Plt Count Lymph % (Auto) [place] % (Auto) [place] # Seg Neutrophils % Seg Neuts % (Manual) Lymphocytes % (Manual) Monocytes % (Manual) Seg Neutrophils # Seg Neutrophils # Man Lymphocytes # (Manual) Monocytes # (Manual) PT INR APTT Heparin Anti-Xa Level POC ABG pH 7.259 L POC ABG pCO2 45.6 H POC ABG pO2 Sodium Potassium Chloride 108.6 H Carbon Dioxide 20 L BUN Creatinine 1.8 H Glucose 269 H POC Glucose 273 H Lactic Acid Calcium 7.0 L Phosphorus Total Bilirubin AST ALT Total Creatine Kinase CK-MB (CK-2) Troponin T Total Protein Albumin Prealbumin HDL Cholesterol Salicylates Acetaminophen Crossmatch 10/11/18 10/11/18 10/11/18 05:58 06:39 07:00 WBC RBC Hgb Hct MCV MCHC RDW Plt Count Lymph % (Auto) [place] % (Auto) [place] # Seg Neutrophils % Seg Neuts % (Manual) Lymphocytes % (Manual) Monocytes % (Manual) Seg Neutrophils # Seg Neutrophils # Man Lymphocytes # (Manual) Monocytes # (Manual) PT INR APTT Heparin Anti-Xa Level POC ABG pH POC ABG pCO2 POC ABG pO2 Sodium Potassium Chloride Carbon Dioxide BUN Creatinine Glucose POC Glucose 247 H Lactic Acid 3.20 H* 3.30 H* Calcium Phosphorus Total Bilirubin AST ALT Total Creatine Kinase CK-MB (CK-2) Troponin T Total Protein Albumin Prealbumin HDL Cholesterol Salicylates Acetaminophen Crossmatch 10/11/18 10/11/18 10/11/18 07:00 07:30 07:36 WBC RBC Hgb Hct MCV MCHC RDW Plt Count Lymph % (Auto) [place] % (Auto) [place] # Seg Neutrophils % Seg Neuts % (Manual) Lymphocytes % (Manual) Monocytes % (Manual) Seg Neutrophils # Seg Neutrophils # Man Lymphocytes # (Manual) Monocytes # (Manual) PT INR APTT Heparin Anti-Xa Level POC ABG pH POC ABG pCO2 POC ABG pO2 Sodium 146 H Potassium Chloride 112.1 H Carbon Dioxide 21 L BUN Creatinine 1.6 H Glucose 218 H POC Glucose Lactic Acid 3.20 H* Calcium 7.0 L Phosphorus Total Bilirubin AST ALT Total Creatine Kinase CK-MB (CK-2) Troponin T 1.020 H* Total Protein Albumin Prealbumin HDL Cholesterol Salicylates Acetaminophen Crossmatch 10/11/18 10/11/18 10/11/18 07:43 08:29 08:29 WBC RBC Hgb 16.2 H Hct 49.9 H D MCV MCHC RDW Plt Count Lymph % (Auto) [place] % (Auto) [place] # Seg Neutrophils % Seg Neuts % (Manual) Lymphocytes % (Manual) Monocytes % (Manual) Seg Neutrophils # Seg Neutrophils # Man Lymphocytes # (Manual) Monocytes # (Manual) PT INR APTT Heparin Anti-Xa Level POC ABG pH POC ABG pCO2 POC ABG pO2 Sodium Potassium Chloride Carbon Dioxide BUN Creatinine Glucose POC Glucose 174 H Lactic Acid 3.90 H* Calcium Phosphorus Total Bilirubin AST ALT Total Creatine Kinase CK-MB (CK-2) Troponin T Total Protein Albumin Prealbumin HDL Cholesterol Salicylates Acetaminophen Crossmatch 10/11/18 10/11/18 10/11/18 08:29 08:42 11:05 WBC RBC Hgb Hct MCV MCHC RDW Plt Count Lymph % (Auto) [place] % (Auto) [place] # Seg Neutrophils % Seg Neuts % (Manual) Lymphocytes % (Manual) Monocytes % (Manual) Seg Neutrophils # Seg Neutrophils # Man Lymphocytes # (Manual) Monocytes # (Manual) PT INR APTT 24.1 L Heparin Anti-Xa Level POC ABG pH POC ABG pCO2 POC ABG pO2 Sodium 147 H Potassium Chloride 113.3 H Carbon Dioxide 21 L BUN Creatinine 1.7 H Glucose 119 H POC Glucose 164 H Lactic Acid Calcium 7.7 L Phosphorus Total Bilirubin AST ALT Total Creatine Kinase CK-MB (CK-2) Troponin T Total Protein Albumin Prealbumin HDL Cholesterol Salicylates Acetaminophen Crossmatch 10/11/18 10/11/18 10/11/18 11:05 11:06 12:30 WBC RBC Hgb Hct MCV MCHC RDW Plt Count Lymph % (Auto) [place] % (Auto) [place] # Seg Neutrophils % Seg Neuts % (Manual) Lymphocytes % (Manual) Monocytes % (Manual) Seg Neutrophils # Seg Neutrophils # Man Lymphocytes # (Manual) Monocytes # (Manual) PT INR APTT Heparin Anti-Xa Level POC ABG pH POC ABG pCO2 POC ABG pO2 Sodium 148 H Potassium Chloride 113.4 H Carbon Dioxide 21 L BUN Creatinine 1.6 H Glucose 119 H POC Glucose 116 H Lactic Acid 3.20 H* Calcium 7.5 L Phosphorus Total Bilirubin AST ALT Total Creatine Kinase CK-MB (CK-2) Troponin T Total Protein Albumin Prealbumin HDL Cholesterol Salicylates Acetaminophen Crossmatch 10/11/18 10/11/18 10/11/18 12:30 13:16 13:25 WBC RBC Hgb Hct MCV MCHC RDW Plt Count Lymph % (Auto) [place] % (Auto) [place] # Seg Neutrophils % Seg Neuts % (Manual) Lymphocytes % (Manual) Monocytes % (Manual) Seg Neutrophils # Seg Neutrophils # Man Lymphocytes # (Manual) Monocytes # (Manual) PT INR APTT Heparin Anti-Xa Level POC ABG pH 7.247 L POC ABG pCO2 48.4 H POC ABG pO2 Sodium Potassium Chloride Carbon Dioxide BUN Creatinine Glucose POC Glucose 112 H Lactic Acid 2.70 H* Calcium Phosphorus Total Bilirubin AST ALT Total Creatine Kinase CK-MB (CK-2) Troponin T Total Protein Albumin Prealbumin HDL Cholesterol Salicylates Acetaminophen Crossmatch 10/11/18 10/11/18 10/11/18 14:41 15:27 16:13 WBC RBC Hgb Hct MCV MCHC RDW Plt Count Lymph % (Auto) [place] % (Auto) [place] # Seg Neutrophils % Seg Neuts % (Manual) Lymphocytes % (Manual) Monocytes % (Manual) Seg Neutrophils # Seg Neutrophils # Man Lymphocytes # (Manual) Monocytes # (Manual) PT INR APTT Heparin Anti-Xa Level POC ABG pH POC ABG pCO2 POC ABG pO2 Sodium Potassium Chloride Carbon Dioxide BUN Creatinine Glucose POC Glucose 127 H 141 H 134 H Lactic Acid Calcium Phosphorus Total Bilirubin AST ALT Total Creatine Kinase CK-MB (CK-2) Troponin T Total Protein Albumin Prealbumin HDL Cholesterol Salicylates Acetaminophen Crossmatch 10/11/18 10/11/18 10/11/18 17:18 18:23 19:38 WBC RBC Hgb Hct MCV MCHC RDW Plt Count Lymph % (Auto) [place] % (Auto) [place] # Seg Neutrophils % Seg Neuts % (Manual) Lymphocytes % (Manual) Monocytes % (Manual) Seg Neutrophils # Seg Neutrophils # Man Lymphocytes # (Manual) Monocytes # (Manual) PT INR APTT Heparin Anti-Xa Level POC ABG pH POC ABG pCO2 POC ABG pO2 Sodium 148 H Potassium Chloride 112.7 H Carbon Dioxide BUN 23 H Creatinine Glucose 143 H POC Glucose 132 H 129 H Lactic Acid Calcium 7.9 L Phosphorus Total Bilirubin AST ALT Total Creatine Kinase CK-MB (CK-2) Troponin T Total Protein Albumin Prealbumin HDL Cholesterol Salicylates Acetaminophen Crossmatch 10/11/18 10/11/18 10/11/18 20:19 20:36 21:01 WBC RBC Hgb Hct MCV MCHC RDW Plt Count Lymph % (Auto) [place] % (Auto) [place] # Seg Neutrophils % Seg Neuts % (Manual) Lymphocytes % (Manual) Monocytes % (Manual) Seg Neutrophils # Seg Neutrophils # Man Lymphocytes # (Manual) Monocytes # (Manual) PT INR APTT Heparin Anti-Xa Level POC ABG pH 7.281 L POC ABG pCO2 POC ABG pO2 Sodium Potassium Chloride Carbon Dioxide BUN Creatinine Glucose POC Glucose 129 H 151 H Lactic Acid Calcium Phosphorus Total Bilirubin AST ALT Total Creatine Kinase CK-MB (CK-2) Troponin T Total Protein Albumin Prealbumin HDL Cholesterol Salicylates Acetaminophen Crossmatch 10/11/18 10/11/18 10/12/18 22:04 23:15 01:18 WBC RBC Hgb Hct MCV MCHC RDW Plt Count Lymph % (Auto) [place] % (Auto) [place] # Seg Neutrophils % Seg Neuts % (Manual) Lymphocytes % (Manual) Monocytes % (Manual) Seg Neutrophils # Seg Neutrophils # Man Lymphocytes # (Manual) Monocytes # (Manual) PT INR APTT Heparin Anti-Xa Level POC ABG pH POC ABG pCO2 POC ABG pO2 Sodium Potassium Chloride Carbon Dioxide BUN Creatinine Glucose POC Glucose 147 H 143 H 158 H Lactic Acid Calcium Phosphorus Total Bilirubin AST ALT Total Creatine Kinase CK-MB (CK-2) Troponin T Total Protein Albumin Prealbumin HDL Cholesterol Salicylates Acetaminophen Crossmatch 10/12/18 10/12/18 10/12/18 02:13 03:18 04:04 WBC RBC Hgb Hct MCV MCHC RDW Plt Count Lymph % (Auto) [place] % (Auto) [place] # Seg Neutrophils % Seg Neuts % (Manual) Lymphocytes % (Manual) Monocytes % (Manual) Seg Neutrophils # Seg Neutrophils # Man Lymphocytes # (Manual) Monocytes # (Manual) PT INR APTT Heparin Anti-Xa Level POC ABG pH POC ABG pCO2 POC ABG pO2 Sodium 147 H Potassium Chloride 111.1 H Carbon Dioxide BUN 30 H Creatinine 2.0 H Glucose 154 H POC Glucose 148 H 142 H Lactic Acid Calcium 8.1 L Phosphorus Total Bilirubin AST 269 H ALT 204 H Total Creatine Kinase 3647 H CK-MB (CK-2) 48.3 H Troponin T 2.230 H* D Total Protein 5.8 L Albumin 2.6 L Prealbumin HDL Cholesterol Salicylates Acetaminophen Crossmatch 10/12/18 10/12/18 10/12/18 04:04 04:08 04:19 WBC 24.4 H RBC Hgb Hct MCV MCHC RDW Plt Count Lymph % (Auto) [place] % (Auto) [place] # Seg Neutrophils % Seg Neuts % (Manual) 32.0 L Lymphocytes % (Manual) Monocytes % (Manual) 8.0 H Seg Neutrophils # Seg Neutrophils # Man 7.8 H Lymphocytes # (Manual) Monocytes # (Manual) 2.0 H PT INR APTT Heparin Anti-Xa Level POC ABG pH 7.317 L POC ABG pCO2 49.3 H POC ABG pO2 Sodium Potassium Chloride Carbon Dioxide BUN Creatinine Glucose POC Glucose 143 H Lactic Acid Calcium Phosphorus Total Bilirubin AST ALT Total Creatine Kinase CK-MB (CK-2) Troponin T Total Protein Albumin Prealbumin HDL Cholesterol Salicylates Acetaminophen Crossmatch 10/12/18 10/12/18 10/12/18 05:29 06:52 08:09 WBC RBC Hgb Hct MCV MCHC RDW Plt Count Lymph % (Auto) [place] % (Auto) [place] # Seg Neutrophils % Seg Neuts % (Manual) Lymphocytes % (Manual) Monocytes % (Manual) Seg Neutrophils # Seg Neutrophils # Man Lymphocytes # (Manual) Monocytes # (Manual) PT INR APTT Heparin Anti-Xa Level POC ABG pH 7.322 L POC ABG pCO2 46.5 H POC ABG pO2 Sodium Potassium Chloride Carbon Dioxide BUN Creatinine Glucose POC Glucose 196 H 226 H Lactic Acid Calcium Phosphorus Total Bilirubin AST ALT Total Creatine Kinase CK-MB (CK-2) Troponin T Total Protein Albumin Prealbumin HDL Cholesterol Salicylates Acetaminophen Crossmatch 10/12/18 10/12/18 10/12/18 08:38 10:03 15:50 WBC RBC Hgb Hct MCV MCHC RDW Plt Count Lymph % (Auto) [place] % (Auto) [place] # Seg Neutrophils % Seg Neuts % (Manual) Lymphocytes % (Manual) Monocytes % (Manual) Seg Neutrophils # Seg Neutrophils # Man Lymphocytes # (Manual) Monocytes # (Manual) PT INR APTT Heparin Anti-Xa Level POC ABG pH POC ABG pCO2 POC ABG pO2 Sodium Potassium Chloride Carbon Dioxide BUN Creatinine Glucose POC Glucose 138 H 148 H 221 H Lactic Acid Calcium Phosphorus Total Bilirubin AST ALT Total Creatine Kinase CK-MB (CK-2) Troponin T Total Protein Albumin Prealbumin HDL Cholesterol Salicylates Acetaminophen Crossmatch 10/12/18 10/12/18 10/12/18 18:39 20:56 21:34 WBC RBC Hgb Hct MCV MCHC RDW Plt Count Lymph % (Auto) [place] % (Auto) [place] # Seg Neutrophils % Seg Neuts % (Manual) Lymphocytes % (Manual) Monocytes % (Manual) Seg Neutrophils # Seg Neutrophils # Man Lymphocytes # (Manual) Monocytes # (Manual) PT INR APTT Heparin Anti-Xa Level POC ABG pH 7.336 L POC ABG pCO2 46.0 H POC ABG pO2 Sodium Potassium Chloride Carbon Dioxide BUN Creatinine Glucose POC Glucose 255 H 260 H Lactic Acid Calcium Phosphorus Total Bilirubin AST ALT Total Creatine Kinase CK-MB (CK-2) Troponin T Total Protein Albumin Prealbumin HDL Cholesterol Salicylates Acetaminophen Crossmatch 10/13/18 10/13/18 10/13/18 02:29 05:09 05:40 WBC 17.0 H RBC Hgb Hct MCV MCHC RDW Plt Count Lymph % (Auto) [place] % (Auto) 9.2 H [place] # 1.6 H Seg Neutrophils % 76.2 H Seg Neuts % (Manual) Lymphocytes % (Manual) Monocytes % (Manual) Seg Neutrophils # 12.9 H Seg Neutrophils # Man Lymphocytes # (Manual) Monocytes # (Manual) PT INR APTT Heparin Anti-Xa Level POC ABG pH POC ABG pCO2 POC ABG pO2 Sodium Potassium Chloride Carbon Dioxide BUN Creatinine Glucose POC Glucose 216 H 249 H Lactic Acid Calcium Phosphorus Total Bilirubin AST ALT Total Creatine Kinase CK-MB (CK-2) Troponin T Total Protein Albumin Prealbumin HDL Cholesterol Salicylates Acetaminophen Crossmatch 10/13/18 10/13/18 10/13/18 05:40 05:40 09:46 WBC RBC Hgb Hct MCV MCHC RDW Plt Count Lymph % (Auto) [place] % (Auto) [place] # Seg Neutrophils % Seg Neuts % (Manual) Lymphocytes % (Manual) Monocytes % (Manual) Seg Neutrophils # Seg Neutrophils # Man Lymphocytes # (Manual) Monocytes # (Manual) PT INR APTT Heparin Anti-Xa Level POC ABG pH POC ABG pCO2 POC ABG pO2 Sodium 146 H Potassium Chloride 109.8 H Carbon Dioxide BUN 35 H Creatinine Glucose 245 H POC Glucose 235 H Lactic Acid Calcium 7.9 L Phosphorus Total Bilirubin AST ALT Total Creatine Kinase CK-MB (CK-2) Troponin T 0.952 H* D Total Protein Albumin Prealbumin HDL Cholesterol Salicylates Acetaminophen Crossmatch 10/13/18 10/13/18 10/13/18 13:58 16:15 17:30 WBC RBC Hgb Hct MCV MCHC RDW Plt Count Lymph % (Auto) [place] % (Auto) [place] # Seg Neutrophils % Seg Neuts % (Manual) Lymphocytes % (Manual) Monocytes % (Manual) Seg Neutrophils # Seg Neutrophils # Man Lymphocytes # (Manual) Monocytes # (Manual) PT INR APTT Heparin Anti-Xa Level POC ABG pH POC ABG pCO2 51.2 H POC ABG pO2 Sodium Potassium Chloride Carbon Dioxide BUN Creatinine Glucose POC Glucose 139 H Lactic Acid Calcium Phosphorus Total Bilirubin AST ALT Total Creatine Kinase CK-MB (CK-2) Troponin T 0.816 H* Total Protein Albumin Prealbumin HDL Cholesterol Salicylates Acetaminophen Crossmatch 10/13/18 10/14/18 10/14/18 21:25 01:49 04:52 WBC RBC Hgb Hct MCV MCHC RDW Plt Count Lymph % (Auto) [place] % (Auto) [place] # Seg Neutrophils % Seg Neuts % (Manual) Lymphocytes % (Manual) Monocytes % (Manual) Seg Neutrophils # Seg Neutrophils # Man Lymphocytes # (Manual) Monocytes # (Manual) PT INR APTT Heparin Anti-Xa Level POC ABG pH POC ABG pCO2 56.0 H POC ABG pO2 Sodium Potassium Chloride Carbon Dioxide BUN Creatinine Glucose POC Glucose 205 H 166 H Lactic Acid Calcium Phosphorus Total Bilirubin AST ALT Total Creatine Kinase CK-MB (CK-2) Troponin T Total Protein Albumin Prealbumin HDL Cholesterol Salicylates Acetaminophen Crossmatch 10/14/18 10/14/18 10/14/18 05:32 09:45 09:45 WBC RBC Hgb 11.4 L Hct 34.5 L MCV MCHC RDW Plt Count 139 L Lymph % (Auto) [place] % (Auto) [place] # Seg Neutrophils % Seg Neuts % (Manual) Lymphocytes % (Manual) Monocytes % (Manual) Seg Neutrophils # Seg Neutrophils # Man Lymphocytes # (Manual) Monocytes # (Manual) PT INR APTT Heparin Anti-Xa Level POC ABG pH POC ABG pCO2 POC ABG pO2 Sodium 148 H Potassium Chloride 107.3 H Carbon Dioxide 34 H D BUN Creatinine 0.7 L D Glucose 191 H POC Glucose 164 H Lactic Acid Calcium 7.3 L Phosphorus Total Bilirubin AST 110 H ALT 91 H Total Creatine Kinase CK-MB (CK-2) Troponin T Total Protein 4.9 L Albumin 2.0 L Prealbumin HDL Cholesterol Salicylates Acetaminophen Crossmatch 10/14/18 10/14/18 10/14/18 10:54 12:20 18:30 WBC RBC Hgb Hct MCV MCHC RDW Plt Count Lymph % (Auto) [place] % (Auto) [place] # Seg Neutrophils % Seg Neuts % (Manual) Lymphocytes % (Manual) Monocytes % (Manual) Seg Neutrophils # Seg Neutrophils # Man Lymphocytes # (Manual) Monocytes # (Manual) PT INR APTT Heparin Anti-Xa Level POC ABG pH POC ABG pCO2 POC ABG pO2 Sodium Potassium Chloride Carbon Dioxide BUN Creatinine Glucose POC Glucose 173 H 158 H 108 H Lactic Acid Calcium Phosphorus Total Bilirubin AST ALT Total Creatine Kinase CK-MB (CK-2) Troponin T Total Protein Albumin Prealbumin HDL Cholesterol Salicylates Acetaminophen Crossmatch 10/14/18 10/15/18 10/15/18 21:54 02:12 04:19 WBC RBC Hgb Hct MCV MCHC RDW Plt Count Lymph % (Auto) [place] % (Auto) [place] # Seg Neutrophils % Seg Neuts % (Manual) Lymphocytes % (Manual) Monocytes % (Manual) Seg Neutrophils # Seg Neutrophils # Man Lymphocytes # (Manual) Monocytes # (Manual) PT INR APTT Heparin Anti-Xa Level POC ABG pH 7.491 H POC ABG pCO2 45.1 H POC ABG pO2 Sodium Potassium Chloride Carbon Dioxide BUN Creatinine Glucose POC Glucose 110 H 164 H Lactic Acid Calcium Phosphorus Total Bilirubin AST ALT Total Creatine Kinase CK-MB (CK-2) Troponin T Total Protein Albumin Prealbumin HDL Cholesterol Salicylates Acetaminophen Crossmatch 10/15/18 10/15/18 10/15/18 04:55 05:43 06:20 WBC RBC Hgb 11.7 L Hct 34.7 L MCV MCHC RDW Plt Count Lymph % (Auto) [place] % (Auto) [place] # Seg Neutrophils % Seg Neuts % (Manual) Lymphocytes % (Manual) Monocytes % (Manual) Seg Neutrophils # Seg Neutrophils # Man Lymphocytes # (Manual) Monocytes # (Manual) PT INR APTT Heparin Anti-Xa Level POC ABG pH POC ABG pCO2 47.3 H POC ABG pO2 78 L Sodium Potassium Chloride Carbon Dioxide BUN Creatinine Glucose POC Glucose 250 H Lactic Acid Calcium Phosphorus Total Bilirubin AST ALT Total Creatine Kinase CK-MB (CK-2) Troponin T Total Protein Albumin Prealbumin HDL Cholesterol Salicylates Acetaminophen Crossmatch 10/15/18 10/15/18 10/15/18 12:00 12:00 12:11 WBC RBC Hgb 11.5 L Hct 34.0 L MCV MCHC RDW Plt Count Lymph % (Auto) [place] % (Auto) [place] # Seg Neutrophils % Seg Neuts % (Manual) Lymphocytes % (Manual) Monocytes % (Manual) Seg Neutrophils # Seg Neutrophils # Man Lymphocytes # (Manual) Monocytes # (Manual) PT INR APTT Heparin Anti-Xa Level POC ABG pH POC ABG pCO2 POC ABG pO2 Sodium 147 H Potassium Chloride 108.5 H Carbon Dioxide BUN Creatinine 0.7 L Glucose 209 H POC Glucose 197 H Lactic Acid Calcium 7.3 L Phosphorus Total Bilirubin AST ALT Total Creatine Kinase CK-MB (CK-2) Troponin T Total Protein Albumin Prealbumin HDL Cholesterol Salicylates Acetaminophen Crossmatch 10/15/18 10/15/18 10/15/18 15:48 18:34 21:29 WBC RBC Hgb Hct MCV MCHC RDW Plt Count Lymph % (Auto) [place] % (Auto) [place] # Seg Neutrophils % Seg Neuts % (Manual) Lymphocytes % (Manual) Monocytes % (Manual) Seg Neutrophils # Seg Neutrophils # Man Lymphocytes # (Manual) Monocytes # (Manual) PT INR APTT Heparin Anti-Xa Level POC ABG pH POC ABG pCO2 POC ABG pO2 Sodium Potassium Chloride Carbon Dioxide BUN Creatinine Glucose POC Glucose 220 H 249 H 209 H Lactic Acid Calcium Phosphorus Total Bilirubin AST ALT Total Creatine Kinase CK-MB (CK-2) Troponin T Total Protein Albumin Prealbumin HDL Cholesterol Salicylates Acetaminophen Crossmatch 10/16/18 10/16/18 10/16/18 02:16 03:50 05:57 WBC RBC Hgb Hct MCV MCHC RDW Plt Count Lymph % (Auto) [place] % (Auto) [place] # Seg Neutrophils % Seg Neuts % (Manual) Lymphocytes % (Manual) Monocytes % (Manual) Seg Neutrophils # Seg Neutrophils # Man Lymphocytes # (Manual) Monocytes # (Manual) PT INR APTT Heparin Anti-Xa Level POC ABG pH POC ABG pCO2 55.8 H POC ABG pO2 Sodium Potassium Chloride Carbon Dioxide BUN Creatinine Glucose POC Glucose 110 H 209 H Lactic Acid Calcium Phosphorus Total Bilirubin AST ALT Total Creatine Kinase CK-MB (CK-2) Troponin T Total Protein Albumin Prealbumin HDL Cholesterol Salicylates Acetaminophen Crossmatch 10/16/18 10/16/18 10/16/18 10:51 12:51 15:01 WBC RBC Hgb Hct MCV MCHC RDW Plt Count Lymph % (Auto) [place] % (Auto) [place] # Seg Neutrophils % Seg Neuts % (Manual) Lymphocytes % (Manual) Monocytes % (Manual) Seg Neutrophils # Seg Neutrophils # Man Lymphocytes # (Manual) Monocytes # (Manual) PT INR APTT Heparin Anti-Xa Level POC ABG pH POC ABG pCO2 48.9 H POC ABG pO2 Sodium Potassium Chloride Carbon Dioxide BUN Creatinine Glucose POC Glucose 198 H 196 H Lactic Acid Calcium Phosphorus Total Bilirubin AST ALT Total Creatine Kinase CK-MB (CK-2) Troponin T Total Protein Albumin Prealbumin HDL Cholesterol Salicylates Acetaminophen Crossmatch 10/16/18 10/16/18 10/17/18 17:34 21:59 02:17 WBC RBC Hgb Hct MCV MCHC RDW Plt Count Lymph % (Auto) [place] % (Auto) [place] # Seg Neutrophils % Seg Neuts % (Manual) Lymphocytes % (Manual) Monocytes % (Manual) Seg Neutrophils # Seg Neutrophils # Man Lymphocytes # (Manual) Monocytes # (Manual) PT INR APTT Heparin Anti-Xa Level POC ABG pH POC ABG pCO2 POC ABG pO2 Sodium Potassium Chloride Carbon Dioxide BUN Creatinine Glucose POC Glucose 179 H 139 H 135 H Lactic Acid Calcium Phosphorus Total Bilirubin AST ALT Total Creatine Kinase CK-MB (CK-2) Troponin T Total Protein Albumin Prealbumin HDL Cholesterol Salicylates Acetaminophen Crossmatch 10/17/18 10/17/18 10/17/18 05:40 05:47 10:18 WBC RBC Hgb 11.3 L Hct 33.2 L MCV MCHC RDW Plt Count Lymph % (Auto) [place] % (Auto) [place] # Seg Neutrophils % Seg Neuts % (Manual) Lymphocytes % (Manual) Monocytes % (Manual) Seg Neutrophils # Seg Neutrophils # Man Lymphocytes # (Manual) Monocytes # (Manual) PT INR APTT Heparin Anti-Xa Level POC ABG pH POC ABG pCO2 POC ABG pO2 Sodium Potassium Chloride Carbon Dioxide BUN Creatinine Glucose POC Glucose 125 H 139 H Lactic Acid Calcium Phosphorus Total Bilirubin AST ALT Total Creatine Kinase CK-MB (CK-2) Troponin T Total Protein Albumin Prealbumin HDL Cholesterol Salicylates Acetaminophen Crossmatch 10/17/18 10/18/18 10/18/18 23:11 08:49 11:31 WBC RBC Hgb Hct MCV MCHC RDW Plt Count Lymph % (Auto) [place] % (Auto) [place] # Seg Neutrophils % Seg Neuts % (Manual) Lymphocytes % (Manual) Monocytes % (Manual) Seg Neutrophils # Seg Neutrophils # Man Lymphocytes # (Manual) Monocytes # (Manual) PT INR APTT Heparin Anti-Xa Level POC ABG pH POC ABG pCO2 POC ABG pO2 Sodium Potassium Chloride Carbon Dioxide BUN Creatinine Glucose POC Glucose 165 H 125 H 182 H Lactic Acid Calcium Phosphorus Total Bilirubin AST ALT Total Creatine Kinase CK-MB (CK-2) Troponin T Total Protein Albumin Prealbumin HDL Cholesterol Salicylates Acetaminophen Crossmatch 10/18/18 10/18/18 10/19/18 16:12 21:02 00:28 WBC RBC Hgb 11.4 L Hct 33.6 L MCV MCHC RDW Plt Count Lymph % (Auto) [place] % (Auto) 14.0 H [place] # 1.2 H Seg Neutrophils % Seg Neuts % (Manual) Lymphocytes % (Manual) Monocytes % (Manual) Seg Neutrophils # Seg Neutrophils # Man Lymphocytes # (Manual) Monocytes # (Manual) PT INR APTT Heparin Anti-Xa Level POC ABG pH POC ABG pCO2 POC ABG pO2 Sodium Potassium Chloride Carbon Dioxide BUN Creatinine Glucose POC Glucose 168 H 324 H Lactic Acid Calcium Phosphorus Total Bilirubin AST ALT Total Creatine Kinase CK-MB (CK-2) Troponin T Total Protein Albumin Prealbumin HDL Cholesterol Salicylates Acetaminophen Crossmatch 10/19/18 10/19/18 10/19/18 04:57 04:57 07:32 WBC RBC Hgb 11.7 L Hct 34.0 L MCV MCHC RDW Plt Count Lymph % (Auto) [place] % (Auto) [place] # Seg Neutrophils % Seg Neuts % (Manual) Lymphocytes % (Manual) Monocytes % (Manual) Seg Neutrophils # Seg Neutrophils # Man Lymphocytes # (Manual) Monocytes # (Manual) PT INR APTT Heparin Anti-Xa Level POC ABG pH POC ABG pCO2 POC ABG pO2 Sodium Potassium 3.5 L Chloride 108.6 H Carbon Dioxide BUN Creatinine 0.6 L Glucose POC Glucose 159 H Lactic Acid Calcium 7.9 L Phosphorus Total Bilirubin AST ALT Total Creatine Kinase CK-MB (CK-2) Troponin T Total Protein Albumin Prealbumin HDL Cholesterol Salicylates Acetaminophen Crossmatch 10/19/18 10/19/18 10/20/18 16:25 20:59 12:04 WBC RBC Hgb Hct MCV MCHC RDW Plt Count Lymph % (Auto) [place] % (Auto) [place] # Seg Neutrophils % Seg Neuts % (Manual) Lymphocytes % (Manual) Monocytes % (Manual) Seg Neutrophils # Seg Neutrophils # Man Lymphocytes # (Manual) Monocytes # (Manual) PT INR APTT Heparin Anti-Xa Level POC ABG pH POC ABG pCO2 POC ABG pO2 Sodium Potassium Chloride Carbon Dioxide BUN Creatinine Glucose POC Glucose 134 H 110 H 338 H Lactic Acid Calcium Phosphorus Total Bilirubin AST ALT Total Creatine Kinase CK-MB (CK-2) Troponin T Total Protein Albumin Prealbumin HDL Cholesterol Salicylates Acetaminophen Crossmatch 10/20/18 10/20/18 10/21/18 17:55 22:07 04:59 WBC RBC Hgb 11.6 L Hct 33.9 L MCV MCHC RDW Plt Count Lymph % (Auto) [place] % (Auto) 9.7 H [place] # 0.9 H Seg Neutrophils % 70.7 H Seg Neuts % (Manual) Lymphocytes % (Manual) Monocytes % (Manual) Seg Neutrophils # Seg Neutrophils # Man Lymphocytes # (Manual) Monocytes # (Manual) PT INR APTT Heparin Anti-Xa Level POC ABG pH POC ABG pCO2 POC ABG pO2 Sodium Potassium Chloride Carbon Dioxide BUN Creatinine Glucose POC Glucose 146 H 164 H Lactic Acid Calcium Phosphorus Total Bilirubin AST ALT Total Creatine Kinase CK-MB (CK-2) Troponin T Total Protein Albumin Prealbumin HDL Cholesterol Salicylates Acetaminophen Crossmatch 10/21/18 10/21/18 10/21/18 04:59 07:52 11:39 WBC RBC Hgb Hct MCV MCHC RDW Plt Count Lymph % (Auto) [place] % (Auto) [place] # Seg Neutrophils % Seg Neuts % (Manual) Lymphocytes % (Manual) Monocytes % (Manual) Seg Neutrophils # Seg Neutrophils # Man Lymphocytes # (Manual) Monocytes # (Manual) PT INR APTT Heparin Anti-Xa Level POC ABG pH POC ABG pCO2 POC ABG pO2 Sodium Potassium 3.5 L Chloride 107.1 H Carbon Dioxide BUN Creatinine 0.5 L Glucose 158 H POC Glucose 142 H 194 H Lactic Acid Calcium 7.5 L Phosphorus Total Bilirubin AST ALT Total Creatine Kinase CK-MB (CK-2) Troponin T Total Protein 5.6 L Albumin 2.0 L Prealbumin HDL Cholesterol Salicylates Acetaminophen Crossmatch 10/21/18 10/21/18 10/22/18 17:05 20:37 05:38 WBC RBC 3.48 L Hgb 10.8 L Hct 31.7 L MCV MCHC RDW Plt Count 458 H Lymph % (Auto) [place] % (Auto) 10.5 H [place] # Seg Neutrophils % Seg Neuts % (Manual) Lymphocytes % (Manual) Monocytes % (Manual) Seg Neutrophils # Seg Neutrophils # Man Lymphocytes # (Manual) Monocytes # (Manual) PT INR APTT Heparin Anti-Xa Level POC ABG pH POC ABG pCO2 POC ABG pO2 Sodium Potassium Chloride Carbon Dioxide BUN Creatinine Glucose POC Glucose 167 H 182 H Lactic Acid Calcium Phosphorus Total Bilirubin AST ALT Total Creatine Kinase CK-MB (CK-2) Troponin T Total Protein Albumin Prealbumin HDL Cholesterol Salicylates Acetaminophen Crossmatch 10/22/18 10/22/18 10/22/18 05:38 07:48 12:08 WBC RBC Hgb Hct MCV MCHC RDW Plt Count Lymph % (Auto) [place] % (Auto) [place] # Seg Neutrophils % Seg Neuts % (Manual) Lymphocytes % (Manual) Monocytes % (Manual) Seg Neutrophils # Seg Neutrophils # Man Lymphocytes # (Manual) Monocytes # (Manual) PT INR APTT Heparin Anti-Xa Level POC ABG pH POC ABG pCO2 POC ABG pO2 Sodium Potassium Chloride Carbon Dioxide BUN Creatinine 0.5 L Glucose 146 H POC Glucose 130 H 167 H Lactic Acid Calcium 7.8 L Phosphorus Total Bilirubin AST 41 H ALT Total Creatine Kinase CK-MB (CK-2) Troponin T Total Protein 5.5 L Albumin 2.1 L Prealbumin HDL Cholesterol Salicylates Acetaminophen Crossmatch 10/22/18 10/22/18 10/23/18 16:45 21:42 04:38 WBC RBC Hgb 11.7 L Hct 34.7 L MCV MCHC RDW Plt Count 523 H Lymph % (Auto) [place] % (Auto) 8.7 H [place] # Seg Neutrophils % 71.6 H Seg Neuts % (Manual) Lymphocytes % (Manual) Monocytes % (Manual) Seg Neutrophils # Seg Neutrophils # Man Lymphocytes # (Manual) Monocytes # (Manual) PT INR APTT Heparin Anti-Xa Level POC ABG pH POC ABG pCO2 POC ABG pO2 Sodium Potassium Chloride Carbon Dioxide BUN Creatinine Glucose POC Glucose 113 H 134 H Lactic Acid Calcium Phosphorus Total Bilirubin AST ALT Total Creatine Kinase CK-MB (CK-2) Troponin T Total Protein Albumin Prealbumin HDL Cholesterol Salicylates Acetaminophen Crossmatch 10/23/18 10/23/18 10/23/18 04:38 07:56 11:15 WBC RBC Hgb Hct MCV MCHC RDW Plt Count Lymph % (Auto) [place] % (Auto) [place] # Seg Neutrophils % Seg Neuts % (Manual) Lymphocytes % (Manual) Monocytes % (Manual) Seg Neutrophils # Seg Neutrophils # Man Lymphocytes # (Manual) Monocytes # (Manual) PT INR APTT Heparin Anti-Xa Level POC ABG pH POC ABG pCO2 POC ABG pO2 Sodium Potassium Chloride Carbon Dioxide BUN 7 L Creatinine 0.5 L Glucose 150 H POC Glucose 123 H 212 H Lactic Acid Calcium 8.0 L Phosphorus Total Bilirubin AST 55 H ALT Total Creatine Kinase CK-MB (CK-2) Troponin T Total Protein 6.2 L Albumin 2.3 L Prealbumin HDL Cholesterol Salicylates Acetaminophen Crossmatch 10/23/18 10/23/18 10/24/18 16:06 22:01 05:56 WBC 11.8 H RBC 3.64 L Hgb 11.2 L Hct 33.4 L MCV MCHC RDW Plt Count 564 H Lymph % (Auto) 11.3 L [place] % (Auto) [place] # Seg Neutrophils % 80.2 H Seg Neuts % (Manual) Lymphocytes % (Manual) Monocytes % (Manual) Seg Neutrophils # 9.4 H Seg Neutrophils # Man Lymphocytes # (Manual) Monocytes # (Manual) PT INR APTT Heparin Anti-Xa Level POC ABG pH POC ABG pCO2 POC ABG pO2 Sodium Potassium Chloride Carbon Dioxide BUN Creatinine Glucose POC Glucose 152 H 235 H Lactic Acid Calcium Phosphorus Total Bilirubin AST ALT Total Creatine Kinase CK-MB (CK-2) Troponin T Total Protein Albumin Prealbumin HDL Cholesterol Salicylates Acetaminophen Crossmatch 10/24/18 10/24/18 10/24/18 05:56 07:52 11:58 WBC RBC Hgb Hct MCV MCHC RDW Plt Count Lymph % (Auto) [place] % (Auto) [place] # Seg Neutrophils % Seg Neuts % (Manual) Lymphocytes % (Manual) Monocytes % (Manual) Seg Neutrophils # Seg Neutrophils # Man Lymphocytes # (Manual) Monocytes # (Manual) PT INR APTT Heparin Anti-Xa Level POC ABG pH POC ABG pCO2 POC ABG pO2 Sodium Potassium Chloride Carbon Dioxide BUN Creatinine 0.5 L Glucose 175 H POC Glucose 156 H 238 H Lactic Acid Calcium 8.0 L Phosphorus Total Bilirubin AST 44 H ALT Total Creatine Kinase CK-MB (CK-2) Troponin T Total Protein 6.2 L Albumin 2.4 L Prealbumin HDL Cholesterol Salicylates Acetaminophen Crossmatch 10/24/18 10/24/18 10/25/18 16:20 22:13 07:53 WBC RBC Hgb Hct MCV MCHC RDW Plt Count Lymph % (Auto) [place] % (Auto) [place] # Seg Neutrophils % Seg Neuts % (Manual) Lymphocytes % (Manual) Monocytes % (Manual) Seg Neutrophils # Seg Neutrophils # Man Lymphocytes # (Manual) Monocytes # (Manual) PT INR APTT Heparin Anti-Xa Level POC ABG pH POC ABG pCO2 POC ABG pO2 Sodium Potassium Chloride Carbon Dioxide BUN Creatinine Glucose POC Glucose 60 L 261 H 211 H Lactic Acid Calcium Phosphorus Total Bilirubin AST ALT Total Creatine Kinase CK-MB (CK-2) Troponin T Total Protein Albumin Prealbumin HDL Cholesterol Salicylates Acetaminophen Crossmatch 10/25/18 10/25/18 10/25/18 11:03 16:02 22:45 WBC RBC Hgb Hct MCV MCHC RDW Plt Count Lymph % (Auto) [place] % (Auto) [place] # Seg Neutrophils % Seg Neuts % (Manual) Lymphocytes % (Manual) Monocytes % (Manual) Seg Neutrophils # Seg Neutrophils # Man Lymphocytes # (Manual) Monocytes # (Manual) PT INR APTT Heparin Anti-Xa Level POC ABG pH POC ABG pCO2 POC ABG pO2 Sodium Potassium Chloride Carbon Dioxide BUN Creatinine Glucose POC Glucose 137 H 186 H 140 H Lactic Acid Calcium Phosphorus Total Bilirubin AST ALT Total Creatine Kinase CK-MB (CK-2) Troponin T Total Protein Albumin Prealbumin HDL Cholesterol Salicylates Acetaminophen Crossmatch 10/26/18 10/26/18 10/26/18 08:13 10:08 11:28 WBC RBC Hgb Hct MCV MCHC RDW Plt Count Lymph % (Auto) [place] % (Auto) [place] # Seg Neutrophils % Seg Neuts % (Manual) Lymphocytes % (Manual) Monocytes % (Manual) Seg Neutrophils # Seg Neutrophils # Man Lymphocytes # (Manual) Monocytes # (Manual) PT INR APTT Heparin Anti-Xa Level POC ABG pH POC ABG pCO2 POC ABG pO2 Sodium Potassium Chloride Carbon Dioxide BUN Creatinine Glucose POC Glucose 144 H 110 H 201 H Lactic Acid Calcium Phosphorus Total Bilirubin AST ALT Total Creatine Kinase CK-MB (CK-2) Troponin T Total Protein Albumin Prealbumin HDL Cholesterol Salicylates Acetaminophen Crossmatch 10/26/18 10/26/18 10/27/18 16:36 22:29 07:34 WBC RBC Hgb Hct MCV MCHC RDW Plt Count Lymph % (Auto) [place] % (Auto) [place] # Seg Neutrophils % Seg Neuts % (Manual) Lymphocytes % (Manual) Monocytes % (Manual) Seg Neutrophils # Seg Neutrophils # Man Lymphocytes # (Manual) Monocytes # (Manual) PT INR APTT Heparin Anti-Xa Level POC ABG pH POC ABG pCO2 POC ABG pO2 Sodium Potassium Chloride Carbon Dioxide BUN Creatinine Glucose POC Glucose 147 H 302 H 182 H Lactic Acid Calcium Phosphorus Total Bilirubin AST ALT Total Creatine Kinase CK-MB (CK-2) Troponin T Total Protein Albumin Prealbumin HDL Cholesterol Salicylates Acetaminophen Crossmatch 10/27/18 10/27/18 10/27/18 11:57 13:33 14:55 WBC RBC Hgb Hct MCV MCHC RDW Plt Count 550 H Lymph % (Auto) [place] % (Auto) [place] # Seg Neutrophils % Seg Neuts % (Manual) Lymphocytes % (Manual) Monocytes % (Manual) Seg Neutrophils # Seg Neutrophils # Man Lymphocytes # (Manual) Monocytes # (Manual) PT INR APTT Heparin Anti-Xa Level POC ABG pH POC ABG pCO2 POC ABG pO2 Sodium Potassium Chloride Carbon Dioxide BUN Creatinine Glucose POC Glucose 209 H Lactic Acid Calcium Phosphorus Total Bilirubin AST ALT Total Creatine Kinase CK-MB (CK-2) Troponin T Total Protein Albumin Prealbumin HDL Cholesterol Salicylates Acetaminophen Crossmatch See Detail 10/27/18 10/27/18 10/28/18 17:09 21:45 07:45 WBC RBC Hgb Hct MCV MCHC RDW Plt Count Lymph % (Auto) [place] % (Auto) [place] # Seg Neutrophils % Seg Neuts % (Manual) Lymphocytes % (Manual) Monocytes % (Manual) Seg Neutrophils # Seg Neutrophils # Man Lymphocytes # (Manual) Monocytes # (Manual) PT INR APTT Heparin Anti-Xa Level POC ABG pH POC ABG pCO2 POC ABG pO2 Sodium Potassium Chloride Carbon Dioxide BUN Creatinine Glucose POC Glucose 233 H 136 H 201 H Lactic Acid Calcium Phosphorus Total Bilirubin AST ALT Total Creatine Kinase CK-MB (CK-2) Troponin T Total Protein Albumin Prealbumin HDL Cholesterol Salicylates Acetaminophen Crossmatch 10/28/18 10/28/18 10/28/18 11:17 16:34 19:51 WBC RBC Hgb Hct MCV MCHC RDW Plt Count Lymph % (Auto) [place] % (Auto) [place] # Seg Neutrophils % Seg Neuts % (Manual) Lymphocytes % (Manual) Monocytes % (Manual) Seg Neutrophils # Seg Neutrophils # Man Lymphocytes # (Manual) Monocytes # (Manual) PT INR APTT Heparin Anti-Xa Level < 0.10 L POC ABG pH POC ABG pCO2 POC ABG pO2 Sodium Potassium Chloride Carbon Dioxide BUN Creatinine Glucose POC Glucose 116 H 168 H Lactic Acid Calcium Phosphorus Total Bilirubin AST ALT Total Creatine Kinase CK-MB (CK-2) Troponin T Total Protein Albumin Prealbumin HDL Cholesterol Salicylates Acetaminophen Crossmatch 10/28/18 10/29/18 10/29/18 21:52 07:11 07:11 WBC RBC Hgb Hct MCV MCHC RDW Plt Count 470 H Lymph % (Auto) [place] % (Auto) [place] # Seg Neutrophils % Seg Neuts % (Manual) Lymphocytes % (Manual) Monocytes % (Manual) Seg Neutrophils # Seg Neutrophils # Man Lymphocytes # (Manual) Monocytes # (Manual) PT INR APTT Heparin Anti-Xa Level 0.13 L POC ABG pH POC ABG pCO2 POC ABG pO2 Sodium Potassium Chloride Carbon Dioxide BUN Creatinine Glucose POC Glucose 159 H Lactic Acid Calcium Phosphorus Total Bilirubin AST ALT Total Creatine Kinase CK-MB (CK-2) Troponin T Total Protein Albumin Prealbumin HDL Cholesterol Salicylates Acetaminophen Crossmatch 10/29/18 10/29/18 10/29/18 07:11 07:43 11:29 WBC RBC Hgb Hct MCV MCHC RDW Plt Count Lymph % (Auto) [place] % (Auto) [place] # Seg Neutrophils % Seg Neuts % (Manual) Lymphocytes % (Manual) Monocytes % (Manual) Seg Neutrophils # Seg Neutrophils # Man Lymphocytes # (Manual) Monocytes # (Manual) PT INR APTT Heparin Anti-Xa Level POC ABG pH POC ABG pCO2 POC ABG pO2 Sodium Potassium Chloride Carbon Dioxide BUN 7 L Creatinine 0.5 L Glucose 122 H POC Glucose 147 H 165 H Lactic Acid Calcium 8.2 L Phosphorus Total Bilirubin AST ALT Total Creatine Kinase CK-MB (CK-2) Troponin T Total Protein Albumin Prealbumin HDL Cholesterol Salicylates Acetaminophen Crossmatch 10/29/18 10/29/18 10/30/18 19:50 22:11 00:11 WBC RBC Hgb Hct MCV MCHC RDW Plt Count Lymph % (Auto) [place] % (Auto) [place] # Seg Neutrophils % Seg Neuts % (Manual) Lymphocytes % (Manual) Monocytes % (Manual) Seg Neutrophils # Seg Neutrophils # Man Lymphocytes # (Manual) Monocytes # (Manual) PT INR APTT Heparin Anti-Xa Level 0.25 L POC ABG pH POC ABG pCO2 POC ABG pO2 Sodium Potassium Chloride Carbon Dioxide BUN Creatinine Glucose POC Glucose 166 H 173 H Lactic Acid Calcium Phosphorus Total Bilirubin AST ALT Total Creatine Kinase CK-MB (CK-2) Troponin T Total Protein Albumin Prealbumin HDL Cholesterol Salicylates Acetaminophen Crossmatch 10/30/18 10/30/18 10/30/18 04:22 04:22 07:47 WBC 27.0 H RBC 3.16 L Hgb 10.0 L Hct 28.8 L D MCV MCHC 35 H RDW Plt Count Lymph % (Auto) [place] % (Auto) [place] # Seg Neutrophils % Seg Neuts % (Manual) Lymphocytes % (Manual) 1.5 L Monocytes % (Manual) Seg Neutrophils # Seg Neutrophils # Man 18.6 H Lymphocytes # (Manual) 0.4 L Monocytes # (Manual) PT INR APTT Heparin Anti-Xa Level POC ABG pH POC ABG pCO2 POC ABG pO2 Sodium Potassium Chloride Carbon Dioxide BUN Creatinine Glucose 224 H POC Glucose 168 H Lactic Acid Calcium 7.5 L Phosphorus Total Bilirubin AST ALT Total Creatine Kinase CK-MB (CK-2) Troponin T Total Protein Albumin Prealbumin HDL Cholesterol Salicylates Acetaminophen Crossmatch 10/30/18 10/30/18 10/30/18 07:55 11:20 16:41 WBC RBC Hgb Hct MCV MCHC RDW Plt Count Lymph % (Auto) [place] % (Auto) [place] # Seg Neutrophils % Seg Neuts % (Manual) Lymphocytes % (Manual) Monocytes % (Manual) Seg Neutrophils # Seg Neutrophils # Man Lymphocytes # (Manual) Monocytes # (Manual) PT INR APTT Heparin Anti-Xa Level < 0.10 L POC ABG pH POC ABG pCO2 POC ABG pO2 Sodium Potassium Chloride Carbon Dioxide BUN Creatinine Glucose POC Glucose 165 H 142 H Lactic Acid Calcium Phosphorus Total Bilirubin AST ALT Total Creatine Kinase CK-MB (CK-2) Troponin T Total Protein Albumin Prealbumin HDL Cholesterol Salicylates Acetaminophen Crossmatch 10/30/18 10/30/18 10/31/18 20:51 21:20 05:21 WBC RBC Hgb 9.0 L Hct 26.6 L MCV MCHC RDW Plt Count Lymph % (Auto) [place] % (Auto) [place] # Seg Neutrophils % Seg Neuts % (Manual) Lymphocytes % (Manual) Monocytes % (Manual) Seg Neutrophils # Seg Neutrophils # Man Lymphocytes # (Manual) Monocytes # (Manual) PT INR APTT Heparin Anti-Xa Level < 0.10 L POC ABG pH POC ABG pCO2 POC ABG pO2 Sodium Potassium Chloride Carbon Dioxide BUN Creatinine Glucose POC Glucose 136 H Lactic Acid Calcium Phosphorus Total Bilirubin AST ALT Total Creatine Kinase CK-MB (CK-2) Troponin T Total Protein Albumin Prealbumin HDL Cholesterol Salicylates Acetaminophen Crossmatch 10/31/18 10/31/18 10/31/18 08:07 10:19 12:12 WBC RBC Hgb Hct MCV MCHC RDW Plt Count Lymph % (Auto) [place] % (Auto) [place] # Seg Neutrophils % Seg Neuts % (Manual) Lymphocytes % (Manual) Monocytes % (Manual) Seg Neutrophils # Seg Neutrophils # Man Lymphocytes # (Manual) Monocytes # (Manual) PT INR APTT Heparin Anti-Xa Level POC ABG pH POC ABG pCO2 POC ABG pO2 Sodium Potassium Chloride Carbon Dioxide BUN Creatinine Glucose POC Glucose 155 H 194 H Lactic Acid Calcium Phosphorus Total Bilirubin AST ALT Total Creatine Kinase CK-MB (CK-2) Troponin T Total Protein Albumin Prealbumin HDL Cholesterol Salicylates Acetaminophen Crossmatch See Detail 10/31/18 10/31/18 10/31/18 16:07 16:56 21:14 WBC RBC Hgb Hct MCV MCHC RDW Plt Count Lymph % (Auto) [place] % (Auto) [place] # Seg Neutrophils % Seg Neuts % (Manual) Lymphocytes % (Manual) Monocytes % (Manual) Seg Neutrophils # Seg Neutrophils # Man Lymphocytes # (Manual) Monocytes # (Manual) PT INR APTT Heparin Anti-Xa Level 1.20 H POC ABG pH POC ABG pCO2 POC ABG pO2 Sodium Potassium Chloride Carbon Dioxide BUN Creatinine Glucose POC Glucose 354 H 234 H Lactic Acid Calcium Phosphorus Total Bilirubin AST ALT Total Creatine Kinase CK-MB (CK-2) Troponin T Total Protein Albumin Prealbumin HDL Cholesterol Salicylates Acetaminophen Crossmatch 11/01/18 11/01/18 11/01/18 00:52 05:52 05:52 WBC 12.5 H RBC 2.95 L Hgb 9.1 L Hct 27.4 L MCV MCHC RDW 15.3 H Plt Count Lymph % (Auto) [place] % (Auto) [place] # Seg Neutrophils % Seg Neuts % (Manual) Lymphocytes % (Manual) Monocytes % (Manual) Seg Neutrophils # Seg Neutrophils # Man Lymphocytes # (Manual) Monocytes # (Manual) PT INR APTT Heparin Anti-Xa Level 1.53 H POC ABG pH POC ABG pCO2 POC ABG pO2 Sodium Potassium Chloride Carbon Dioxide BUN Creatinine 0.5 L Glucose 169 H POC Glucose Lactic Acid Calcium 8.3 L Phosphorus Total Bilirubin AST ALT Total Creatine Kinase CK-MB (CK-2) Troponin T Total Protein 6.2 L Albumin 2.3 L Prealbumin HDL Cholesterol Salicylates Acetaminophen Crossmatch 11/01/18 11/01/18 11/01/18 08:17 10:57 11:38 WBC RBC Hgb Hct MCV MCHC RDW Plt Count Lymph % (Auto) [place] % (Auto) [place] # Seg Neutrophils % Seg Neuts % (Manual) Lymphocytes % (Manual) Monocytes % (Manual) Seg Neutrophils # Seg Neutrophils # Man Lymphocytes # (Manual) Monocytes # (Manual) PT INR APTT Heparin Anti-Xa Level 1.05 H POC ABG pH POC ABG pCO2 POC ABG pO2 Sodium Potassium Chloride Carbon Dioxide BUN Creatinine Glucose POC Glucose 158 H 133 H Lactic Acid Calcium Phosphorus Total Bilirubin AST ALT Total Creatine Kinase CK-MB (CK-2) Troponin T Total Protein Albumin Prealbumin HDL Cholesterol Salicylates Acetaminophen Crossmatch 11/01/18 11/01/18 11/02/18 17:08 21:23 04:56 WBC RBC 3.02 L Hgb 9.5 L Hct 28.0 L MCV MCHC RDW Plt Count Lymph % (Auto) [place] % (Auto) [place] # Seg Neutrophils % Seg Neuts % (Manual) Lymphocytes % (Manual) Monocytes % (Manual) Seg Neutrophils # Seg Neutrophils # Man Lymphocytes # (Manual) Monocytes # (Manual) PT INR APTT Heparin Anti-Xa Level POC ABG pH POC ABG pCO2 POC ABG pO2 Sodium Potassium Chloride Carbon Dioxide BUN Creatinine Glucose POC Glucose 156 H 213 H Lactic Acid Calcium Phosphorus Total Bilirubin AST ALT Total Creatine Kinase CK-MB (CK-2) Troponin T Total Protein Albumin Prealbumin HDL Cholesterol Salicylates Acetaminophen Crossmatch 11/02/18 11/02/18 11/02/18 04:56 08:38 11:23 WBC RBC Hgb Hct MCV MCHC RDW Plt Count Lymph % (Auto) [place] % (Auto) [place] # Seg Neutrophils % Seg Neuts % (Manual) Lymphocytes % (Manual) Monocytes % (Manual) Seg Neutrophils # Seg Neutrophils # Man Lymphocytes # (Manual) Monocytes # (Manual) PT INR APTT Heparin Anti-Xa Level POC ABG pH POC ABG pCO2 POC ABG pO2 Sodium Potassium Chloride Carbon Dioxide BUN Creatinine 0.5 L Glucose 141 H POC Glucose 173 H 272 H Lactic Acid Calcium 8.2 L Phosphorus Total Bilirubin AST 43 H ALT Total Creatine Kinase CK-MB (CK-2) Troponin T Total Protein 6.1 L Albumin 2.2 L Prealbumin HDL Cholesterol Salicylates Acetaminophen Crossmatch 11/02/18 11/03/18 11/03/18 22:16 04:38 04:38 WBC 11.6 H RBC 3.20 L Hgb 9.8 L Hct 29.2 L MCV MCHC RDW Plt Count Lymph % (Auto) [place] % (Auto) [place] # Seg Neutrophils % Seg Neuts % (Manual) Lymphocytes % (Manual) Monocytes % (Manual) Seg Neutrophils # Seg Neutrophils # Man Lymphocytes # (Manual) Monocytes # (Manual) PT INR APTT Heparin Anti-Xa Level POC ABG pH POC ABG pCO2 POC ABG pO2 Sodium 135 L Potassium Chloride Carbon Dioxide BUN Creatinine 0.5 L Glucose 160 H POC Glucose 182 H Lactic Acid Calcium Phosphorus Total Bilirubin AST 46 H ALT Total Creatine Kinase CK-MB (CK-2) Troponin T Total Protein Albumin 2.3 L Prealbumin HDL Cholesterol Salicylates Acetaminophen Crossmatch 11/03/18 11/03/18 11/03/18 07:52 10:59 18:10 WBC RBC Hgb Hct MCV MCHC RDW Plt Count Lymph % (Auto) [place] % (Auto) [place] # Seg Neutrophils % Seg Neuts % (Manual) Lymphocytes % (Manual) Monocytes % (Manual) Seg Neutrophils # Seg Neutrophils # Man Lymphocytes # (Manual) Monocytes # (Manual) PT INR APTT Heparin Anti-Xa Level POC ABG pH POC ABG pCO2 POC ABG pO2 Sodium Potassium Chloride Carbon Dioxide BUN Creatinine Glucose POC Glucose 180 H 159 H 169 H Lactic Acid Calcium Phosphorus Total Bilirubin AST ALT Total Creatine Kinase CK-MB (CK-2) Troponin T Total Protein Albumin Prealbumin HDL Cholesterol Salicylates Acetaminophen Crossmatch 11/04/18 11/04/18 11/04/18 07:46 11:42 15:45 WBC 11.5 H RBC 3.41 L Hgb 10.4 L Hct 30.8 L MCV MCHC RDW Plt Count Lymph % (Auto) [place] % (Auto) [place] # Seg Neutrophils % Seg Neuts % (Manual) Lymphocytes % (Manual) Monocytes % (Manual) Seg Neutrophils # Seg Neutrophils # Man Lymphocytes # (Manual) Monocytes # (Manual) PT INR APTT Heparin Anti-Xa Level POC ABG pH POC ABG pCO2 POC ABG pO2 Sodium Potassium Chloride Carbon Dioxide BUN Creatinine Glucose POC Glucose 160 H 149 H Lactic Acid Calcium Phosphorus Total Bilirubin AST ALT Total Creatine Kinase CK-MB (CK-2) Troponin T Total Protein Albumin Prealbumin HDL Cholesterol Salicylates Acetaminophen Crossmatch 11/04/18 11/04/18 11/04/18 15:45 15:45 16:41 WBC RBC Hgb Hct MCV MCHC RDW Plt Count Lymph % (Auto) [place] % (Auto) [place] # Seg Neutrophils % Seg Neuts % (Manual) Lymphocytes % (Manual) Monocytes % (Manual) Seg Neutrophils # Seg Neutrophils # Man Lymphocytes # (Manual) Monocytes # (Manual) PT INR APTT Heparin Anti-Xa Level POC ABG pH POC ABG pCO2 POC ABG pO2 Sodium 133 L Potassium Chloride 95.6 L Carbon Dioxide BUN Creatinine 0.5 L Glucose 163 H POC Glucose 157 H Lactic Acid Calcium Phosphorus Total Bilirubin AST ALT Total Creatine Kinase CK-MB (CK-2) Troponin T Total Protein Albumin 2.6 L Prealbumin 0.073 L HDL Cholesterol Salicylates Acetaminophen Crossmatch 05/26/19 05/27/19 05/27/19 21:59 08:51 12:13 WBC RBC Hgb Hct MCV MCHC RDW Plt Count Lymph % (Auto) [place] % (Auto) [place] # Seg Neutrophils % Seg Neuts % (Manual) Lymphocytes % (Manual) Monocytes % (Manual) Seg Neutrophils # Seg Neutrophils # Man Lymphocytes # (Manual) Monocytes # (Manual) PT INR APTT Heparin Anti-Xa Level POC ABG pH POC ABG pCO2 POC ABG pO2 Sodium Potassium Chloride Carbon Dioxide BUN Creatinine Glucose POC Glucose 195 H 187 H 149 H Lactic Acid Calcium Phosphorus Total Bilirubin AST ALT Total Creatine Kinase CK-MB (CK-2) Troponin T Total Protein Albumin Prealbumin HDL Cholesterol Salicylates Acetaminophen Crossmatch 11/05/18 11/05/18 11/06/18 17:15 20:37 07:00 WBC RBC 3.48 L Hgb 11.2 L Hct 31.8 L MCV MCHC 35 H RDW Plt Count Lymph % (Auto) [place] % (Auto) [place] # Seg Neutrophils % Seg Neuts % (Manual) Lymphocytes % (Manual) Monocytes % (Manual) Seg Neutrophils # Seg Neutrophils # Man Lymphocytes # (Manual) Monocytes # (Manual) PT INR APTT Heparin Anti-Xa Level POC ABG pH POC ABG pCO2 POC ABG pO2 Sodium Potassium Chloride Carbon Dioxide BUN Creatinine Glucose POC Glucose 281 H 203 H Lactic Acid Calcium Phosphorus Total Bilirubin AST ALT Total Creatine Kinase CK-MB (CK-2) Troponin T Total Protein Albumin Prealbumin HDL Cholesterol Salicylates Acetaminophen Crossmatch 11/06/18 11/06/18 11/06/18 07:00 07:31 12:45 WBC RBC Hgb Hct MCV MCHC RDW Plt Count Lymph % (Auto) [place] % (Auto) [place] # Seg Neutrophils % Seg Neuts % (Manual) Lymphocytes % (Manual) Monocytes % (Manual) Seg Neutrophils # Seg Neutrophils # Man Lymphocytes # (Manual) Monocytes # (Manual) PT INR APTT Heparin Anti-Xa Level POC ABG pH POC ABG pCO2 POC ABG pO2 Sodium 135 L Potassium Chloride 97.3 L Carbon Dioxide BUN Creatinine 0.5 L Glucose 163 H POC Glucose 215 H 183 H Lactic Acid Calcium Phosphorus Total Bilirubin AST ALT Total Creatine Kinase CK-MB (CK-2) Troponin T Total Protein Albumin Prealbumin HDL Cholesterol Salicylates Acetaminophen Crossmatch 11/06/18 11/06/18 11/07/18 17:47 21:05 07:42 WBC RBC Hgb Hct MCV MCHC RDW Plt Count Lymph % (Auto) [place] % (Auto) [place] # Seg Neutrophils % Seg Neuts % (Manual) Lymphocytes % (Manual) Monocytes % (Manual) Seg Neutrophils # Seg Neutrophils # Man Lymphocytes # (Manual) Monocytes # (Manual) PT INR APTT Heparin Anti-Xa Level POC ABG pH POC ABG pCO2 POC ABG pO2 Sodium Potassium Chloride Carbon Dioxide BUN Creatinine Glucose POC Glucose 141 H 223 H 168 H Lactic Acid Calcium Phosphorus Total Bilirubin AST ALT Total Creatine Kinase CK-MB (CK-2) Troponin T Total Protein Albumin Prealbumin HDL Cholesterol Salicylates Acetaminophen Crossmatch 11/07/18 11/07/18 11/07/18 11:37 16:21 21:39 WBC RBC Hgb Hct MCV MCHC RDW Plt Count Lymph % (Auto) [place] % (Auto) [place] # Seg Neutrophils % Seg Neuts % (Manual) Lymphocytes % (Manual) Monocytes % (Manual) Seg Neutrophils # Seg Neutrophils # Man Lymphocytes # (Manual) Monocytes # (Manual) PT INR APTT Heparin Anti-Xa Level POC ABG pH POC ABG pCO2 POC ABG pO2 Sodium Potassium Chloride Carbon Dioxide BUN Creatinine Glucose POC Glucose 120 H 169 H 127 H Lactic Acid Calcium Phosphorus Total Bilirubin AST ALT Total Creatine Kinase CK-MB (CK-2) Troponin T Total Protein Albumin Prealbumin HDL Cholesterol Salicylates Acetaminophen Crossmatch 11/08/18 11/08/18 11/08/18 11:48 16:32 16:32 WBC 11.3 H RBC 3.40 L Hgb 10.3 L Hct 30.5 L MCV MCHC RDW Plt Count 465 H Lymph % (Auto) [place] % (Auto) 9.3 H [place] # 1.0 H Seg Neutrophils % 73.1 H Seg Neuts % (Manual) Lymphocytes % (Manual) Monocytes % (Manual) Seg Neutrophils # 8.3 H Seg Neutrophils # Man Lymphocytes # (Manual) Monocytes # (Manual) PT INR APTT Heparin Anti-Xa Level POC ABG pH POC ABG pCO2 POC ABG pO2 Sodium 133 L Potassium Chloride 96.7 L Carbon Dioxide BUN Creatinine 0.4 L Glucose 187 H POC Glucose 144 H Lactic Acid Calcium Phosphorus Total Bilirubin AST ALT Total Creatine Kinase CK-MB (CK-2) Troponin T Total Protein Albumin Prealbumin HDL Cholesterol Salicylates Acetaminophen Crossmatch 11/08/18 11/09/18 11/09/18 16:52 01:48 06:06 WBC 12.7 H RBC 3.47 L Hgb 10.5 L Hct 31.5 L MCV MCHC RDW Plt Count 452 H Lymph % (Auto) [place] % (Auto) 10.9 H [place] # 1.4 H Seg Neutrophils % Seg Neuts % (Manual) Lymphocytes % (Manual) Monocytes % (Manual) Seg Neutrophils # 8.9 H Seg Neutrophils # Man Lymphocytes # (Manual) Monocytes # (Manual) PT INR APTT Heparin Anti-Xa Level POC ABG pH POC ABG pCO2 POC ABG pO2 Sodium Potassium Chloride Carbon Dioxide BUN Creatinine Glucose POC Glucose 220 H 146 H Lactic Acid Calcium Phosphorus Total Bilirubin AST ALT Total Creatine Kinase CK-MB (CK-2) Troponin T Total Protein Albumin Prealbumin HDL Cholesterol Salicylates Acetaminophen Crossmatch 11/09/18 11/09/18 11/09/18 06:06 07:36 12:28 WBC RBC Hgb Hct MCV MCHC RDW Plt Count Lymph % (Auto) [place] % (Auto) [place] # Seg Neutrophils % Seg Neuts % (Manual) Lymphocytes % (Manual) Monocytes % (Manual) Seg Neutrophils # Seg Neutrophils # Man Lymphocytes # (Manual) Monocytes # (Manual) PT INR APTT Heparin Anti-Xa Level POC ABG pH POC ABG pCO2 POC ABG pO2 Sodium 129 L Potassium Chloride 94.5 L Carbon Dioxide BUN Creatinine 0.4 L Glucose 136 H POC Glucose 133 H 193 H Lactic Acid Calcium Phosphorus Total Bilirubin AST ALT Total Creatine Kinase CK-MB (CK-2) Troponin T Total Protein Albumin Prealbumin HDL Cholesterol Salicylates Acetaminophen Crossmatch 11/09/18 11/10/18 11/10/18 21:14 06:27 06:27 WBC RBC 3.50 L Hgb 10.7 L Hct 31.2 L MCV MCHC RDW Plt Count 496 H Lymph % (Auto) [place] % (Auto) 11.8 H [place] # 1.2 H Seg Neutrophils % Seg Neuts % (Manual) Lymphocytes % (Manual) Monocytes % (Manual) Seg Neutrophils # Seg Neutrophils # Man Lymphocytes # (Manual) Monocytes # (Manual) PT INR APTT Heparin Anti-Xa Level POC ABG pH POC ABG pCO2 POC ABG pO2 Sodium 135 L Potassium Chloride 97.2 L Carbon Dioxide BUN Creatinine 0.4 L Glucose 137 H POC Glucose 125 H Lactic Acid Calcium Phosphorus Total Bilirubin AST ALT Total Creatine Kinase CK-MB (CK-2) Troponin T Total Protein Albumin Prealbumin HDL Cholesterol Salicylates Acetaminophen Crossmatch 11/10/18 11/10/18 11/10/18 09:01 17:47 22:10 WBC RBC Hgb Hct MCV MCHC RDW Plt Count Lymph % (Auto) [place] % (Auto) [place] # Seg Neutrophils % Seg Neuts % (Manual) Lymphocytes % (Manual) Monocytes % (Manual) Seg Neutrophils # Seg Neutrophils # Man Lymphocytes # (Manual) Monocytes # (Manual) PT INR APTT Heparin Anti-Xa Level POC ABG pH POC ABG pCO2 POC ABG pO2 Sodium Potassium Chloride Carbon Dioxide BUN Creatinine Glucose POC Glucose 145 H 179 H 178 H Lactic Acid Calcium Phosphorus Total Bilirubin AST ALT Total Creatine Kinase CK-MB (CK-2) Troponin T Total Protein Albumin Prealbumin HDL Cholesterol Salicylates Acetaminophen Crossmatch 11/11/18 11/11/18 11/11/18 07:44 12:18 17:33 WBC RBC Hgb Hct MCV MCHC RDW Plt Count Lymph % (Auto) [place] % (Auto) [place] # Seg Neutrophils % Seg Neuts % (Manual) Lymphocytes % (Manual) Monocytes % (Manual) Seg Neutrophils # Seg Neutrophils # Man Lymphocytes # (Manual) Monocytes # (Manual) PT INR APTT Heparin Anti-Xa Level POC ABG pH POC ABG pCO2 POC ABG pO2 Sodium Potassium Chloride Carbon Dioxide BUN Creatinine Glucose POC Glucose 112 H 206 H 148 H Lactic Acid Calcium Phosphorus Total Bilirubin AST ALT Total Creatine Kinase CK-MB (CK-2) Troponin T Total Protein Albumin Prealbumin HDL Cholesterol Salicylates Acetaminophen Crossmatch 11/11/18 11/12/18 11/12/18 21:29 08:01 11:42 WBC RBC Hgb Hct MCV MCHC RDW Plt Count Lymph % (Auto) [place] % (Auto) [place] # Seg Neutrophils % Seg Neuts % (Manual) Lymphocytes % (Manual) Monocytes % (Manual) Seg Neutrophils # Seg Neutrophils # Man Lymphocytes # (Manual) Monocytes # (Manual) PT INR APTT Heparin Anti-Xa Level POC ABG pH POC ABG pCO2 POC ABG pO2 Sodium Potassium Chloride Carbon Dioxide BUN Creatinine Glucose POC Glucose 184 H 157 H 150 H Lactic Acid Calcium Phosphorus Total Bilirubin AST ALT Total Creatine Kinase CK-MB (CK-2) Troponin T Total Protein Albumin Prealbumin HDL Cholesterol Salicylates Acetaminophen Crossmatch 11/12/18 11/12/18 12:29 12:29 WBC RBC Hgb 10.7 L Hct 31.2 L MCV MCHC RDW Plt Count 534 H Lymph % (Auto) [place] % (Auto) [place] # Seg Neutrophils % Seg Neuts % (Manual) Lymphocytes % (Manual) Monocytes % (Manual) Seg Neutrophils # Seg Neutrophils # Man Lymphocytes # (Manual) Monocytes # (Manual) PT 16.0 H INR 1.20 H APTT Heparin Anti-Xa Level POC ABG pH POC ABG pCO2 POC ABG pO2 Sodium Potassium Chloride Carbon Dioxide BUN Creatinine Glucose POC Glucose Lactic Acid Calcium Phosphorus Total Bilirubin AST ALT Total Creatine Kinase CK-MB (CK-2) Troponin T Total Protein Albumin Prealbumin HDL Cholesterol Salicylates Acetaminophen Crossmatch Allied health notes reviewed: nursing
[2018-11-12] MEDS ORDERED: NACL 0.9% 500 ML 500 ML IV NR (15:50)
--- NOTE | 2018-11-12 15:54 | Progress Note ---
Assessment and Plan 58-year-old male with multiple medical issues including multiple strokes status post partial craniectomy in March for prior strokes with bilateral lower extremity ischemia. 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 Hospitalist and neurology has cleared the patient for anticoagulation. Underwent left BKA, right open thrombectomy and aortic stenting and bilateral common iliac artery stenting but right EIA occluded requiring another open thrombectomy and stenting of the right iliac system. L [employer] and right PT palpable. Right groin incision c/d/i. No hematomas. Left below-knee amputation stump site is unsalvagable. Eliquis discontinued and patient converted to heparin drip. NPO after MN except meds. Plan for OR for left AKA. After AKA and no bleeding noted, can be converted back to Eliquis. Subjective Date of service: 11/12/18 Principal diagnosis: Ac hypercapnic hypoxemic Resp failure; Drug OD; AE-COPD; NINOSKA; Seizures Interval history: Palpable right posterior tibial. Palpable left common femoral artery. Right forefoot with dry gangrene. Left below-knee amputation evaluated. Not salvagable. Plan for left AKA conversion. Objective - Constitutional Vitals: Vital Signs - 12hr 11/12/18 11/12/18 11/12/18 06:17 07:50 08:07 Temperature 98.1 F Pulse Rate 66 Pulse Rate [ 60 69 Throughout] Respiratory 18 Rate Respiratory 16 18 Rate [ Throughout] Blood Pressure 111/65 O2 Sat by Pulse 97 Oximetry 11/12/18 11/12/18 09:00 12:02 Temperature 98.5 F Pulse Rate 71 Pulse Rate [ Throughout] Respiratory 20 16 Rate Respiratory Rate [ Throughout] Blood Pressure 113/74 O2 Sat by Pulse 97 Oximetry General appearance: Present: no acute distress, cachectic - EENT Eyes: EOM intact ENT: hearing intact - Respiratory Respiratory effort: normal Extremities: abnormal (see subjective) - Gastrointestinal General gastrointestinal: Present: soft - Psychiatric Psychiatric: appropriate mood/affect, cooperative - Labs CBC & Chem 7: 11/12/18 12:29 11/10/18 06:27 Labs: Abnormal lab results 11/11/18 11/11/18 11/12/18 Range/Units 17:33 21:29 08:01 Hgb (11.8-15.2) gm/dl Hct (35.5-45.6) % Plt Count (140-440) K/mm3 PT (12.2-14.9) Sec. INR (0.87-1.13) POC Glucose 148 H 184 H 157 H (70-105) 11/12/18 11/12/18 11/12/18 Range/Units 11:42 12:29 12:29 Hgb 10.7 L (11.8-15.2) gm/dl Hct 31.2 L (35.5-45.6) % Plt Count 534 H (140-440) K/mm3 PT 16.0 H (12.2-14.9) Sec. INR 1.20 H (0.87-1.13) POC Glucose 150 H (70-105) Medications & Allergies - Medications Allergies/Adverse Reactions: Allergies No Known Allergies Allergy (Verified 10/31/14 11:20) Home Medications: Home Medications Medication Instructions Recorded Confirmed Last Taken Type Gabapentin [Neurontin] 90 mg PO Q8HR 04/22/15 11/01/18 04/21/15 History ALPRAZolam [Xanax TAB] 1 mg PO TID PRN #30 tablet 03/28/16 11/01/18 Unknown Rx Albuterol Sulfate [Ventolin HFA] 2 puff IH Q4H PRN #1 [id number].[id number] 03/28/16 11/01/18 Unknown Rx Ciprofloxacin HCl [Ciprofloxacin 500 mg PO Q12HR #30 tab 03/28/16 11/01/18 Unknown Rx TAB] Citalopram [celeXA] 10 mg PO QDAY #30 tablet 03/28/16 11/01/18 Unknown Rx Nicotine [Habitrol] 14 mg TD QDAY #30 patch 03/28/16 11/01/18 Unknown Rx Sitagliptin Phos/Metformin HCl 1 tab PO QDAY #30 tbmp.24hr 03/28/16 11/01/18 Unknown Rx [Janumet XR 100-1,000 mg] oxyCODONE /ACETAMINOPHEN [Percocet 1 tab PO Q6H PRN #60 tablet 03/28/16 11/01/18 Unknown Rx 5/325 mg] Active Medications: Generic Name Dose Route Start Last Admin Trade Name Freq PRN Reason Stop Dose Admin Acetaminophen 650 mg 10/11/18 04:04 10/21/18 22:21 Tylenol PO 650 mg Q4H PRN Administration Pain MILD(1-3)/Fever >100.5/HOLLINS Albuterol 2.5 mg 10/19/18 00:54 Proventil IH Q4HRT PRN Shortness Of Breath Albuterol/Ipratropium 1 ampul 10/19/18 08:00 11/12/18 14:34 Duoneb *Not For Prn Use* IH Not Given TIDRT ISAAC Alprazolam 1 mg 10/20/18 13:06 11/12/18 09:01 Xanax PO 1 mg TID PRN Administration Anxiety Aspirin 81 mg 11/01/18 16:00 11/12/18 09:12 Halfprin Ec PO 81 mg QDAY ISAAC Administration Buprenorphine HCl 2 each 11/05/18 10:00 11/12/18 13:19 Suboxone 2 Mg-0.5 Mg SL 2 each QDAY ISAAC Administration Citalopram Hydrobromide 20 mg 11/05/18 10:00 11/12/18 09:01 Celexa PO 20 mg QDAY ISAAC Administration Dextrose 0 ml 10/11/18 03:57 10/11/18 10:18 D50w (25gm) Syringe IV 10 ml PRN PRN Administration Hypoglycemia Docusate Sodium 100 mg 11/04/18 22:00 11/12/18 09:00 Colace PO 100 mg BID ISAAC Administration Famotidine 20 mg 10/15/18 10:00 11/12/18 09:01 Pepcid PO 20 mg BID ISAAC Administration Heparin Sodium/Sodium Chloride 25,000 unit in 500 mls @ 14 mls/hr 11/12/18 12:30 11/12/18 14:19 Heparin/ 0.45% Nacl-25,000 Unit/500 Ml IV 700 units/hr TITR ISAAC 14 mls/hr Administration Protocol 700 UNITS/HR Sodium Chloride 500 mls @ 0 mls/hr 11/12/18 15:50 Nacl 0.9% 500 Ml IV 11/12/18 15:51 ONCE ONE As Directed Insulin Human Regular 0 units 10/17/18 11:30 11/12/18 13:19 Humulin R SUB-Q Not Given ACHS ISAAC Protocol Metoprolol Tartrate 25 mg 10/18/18 22:00 11/12/18 09:02 Lopressor PO 25 mg BID ISAAC Administration Metoprolol Tartrate 2.5 mg 10/18/18 18:51 10/18/18 22:19 Lopressor IV 2.5 mg Q6H PRN Administration Tachyarrhythmias Naloxone HCl 0.1 mg 10/29/18 16:03 Narcan 0.4 Mg/1 Ml IV Q2MIN PRN Res Rate </= 8 or 02 SAT < 92% Ondansetron HCl 4 mg 10/11/18 04:04 11/01/18 22:12 Zofran IV 4 mg Q8H PRN Administration Nausea And Vomiting Oxycodone/Acetaminophen 1 tab 11/11/18 10:21 11/12/18 09:00 Percocet 5/325 PO 1 tab Q4H PRN Administration Pain, Moderate (4-6)
[2018-11-13] MEDS: PERCOCET 5/325 PO PRN ×2 (06:12→10:58)
[2018-11-13] MEDS: XANAX PO PRN (07:53)
[2018-11-13] MEDS: DUONEB *Not for PRN Use IH SCH ×3 (08:02→20:13)
[2018-11-13] MEDS: HumuLIN R SUB-Q SCH ×3 (08:23→19:15)
[2018-11-13] MEDS: PEPCID PO SCH (09:16)
[2018-11-13] MEDS: celeXA PO SCH (09:16)
[2018-11-13] MEDS: LOPRESSOR PO SCH (09:16)
[2018-11-13] MEDS: HALFPRIN EC PO SCH (09:17)
[2018-11-13] MEDS: SUBOXONE 2 MG-0.5 MG SL SCH (09:17)
[2018-11-13] MEDS: COLACE PO SCH (09:18)
--- NOTE | 2018-11-13 10:50 | Progress Note ---
Assessment and Plan Assessment and plan: Patient is a 58 yo man with a history of COPD, diabetes, hypertension, asthma, peripheral neuropathy, chronic hepatitis C virus, panic attack. anxiety disorder, polysubstance abuse including alcohol, cocaine and heroin who presented to [facility] ED on 10/11/18 with AMS. He was diagnosed with septic shock due to pneumonia, placed on Antibiotics and vasopressors. He was also diagnosed with DKA/respiratory failure/Status epilepticus/ARF. Patient s/p left BKA, right open thrombectomy and aortic stenting and bilateral common iliac artery stenting but right EIA occluded requiring another open thrombectomy and stenting of the right iliac system. Vascular surgery felt patient will need evaluation of his devas cularized skin along the lateral aspect of his left stump. Left below-knee amputation stump site is looking marginal and is not salvageable and will require above-knee amputation conversion today. 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 followed by revascularization right leg on 10/31/18. Vascular surgery feels the patient will need evaluation of his devascularized skin along the lateral aspect of his left stump. Left below-knee amputation stump site is looking marginal. It does not appear to be salvageable and will require above-knee amputation conversion today. -Acute/subacute right CVA, Initial CT head, no acute finding, 10/13/18 found to have left-sided weakness, MRI brain showed numerous acute/subacute multilobar infarcts involving the cerebrum and cerebellum including Hemorrhagic transformation of the right frontal and biparietal lobes, was Not a candidate for tPA, monitor off aspirin per teleneurology, QUIQUE ; no thrombus or shunt, -Severe sepsis with shock; resolved. Probably due to LLL aspiration pneumonia, completed total 7 days of antibiotics, off vasopressors -Paroxysmal atrial fibrillation. on Eliquis Cardiology is following -LLL pneumonia: completed treatment -Acute respiratory failure with hypoxia and hypercapnia: Requiring intubation, s/p extubation, treat with nebs and supplemental O2 as needed -DKA, resolved: cont SSI for now, diabetic diet -Acute toxic/metabolic encephalopathy, improved -Seizure disorder; seizure precautions, no new episodes of seizure, Ativan when necessary, neurology did not recommend antiepileptic medications -Elevated troponin/NSTEMI type 2, Echocardiogram for further evaluation - Ef 25- 30%, Cardiology consulted, medical Mx for now, -Acute systolic CHF, Ef 25-30%, anti-failure medications, Cardiology is follow ing -Chronic hypotension. Consider Midodrine. -ARF. Etiology secondary to ATN and vasomotor nephropathy, poa, resolved -Hyperkalemia, resolved -Abnormal LFT, Probably due to sepsis, resolving and chronic hepatitis C virus infection, Abdominal US showed no sign of cirrhosis: monitor cmp -Anemia, appears acute on chronic AOCD: monitor closely on iv heparin drip -Severe protein calorie malnutrition, bmi 14.8; nutrition supplements, Dietitian consulted -DVT prophylaxis with Eliquis -GI prophylaxis with famotidine -Tobacco abuse. Patient with a long smoking history of one pack per day or more since age 9. Patient was counseled on smoking cessation. -Disposition: continue inpatient care. Possible rehab vs Subacute rehab placement==>Physical therapy recommended Subacute Rehab but re-evaluation pending. For conversion to left AKA today History Interval history: patient with non-healing left BKA For surg today to convert to Left AKA Hospitalist Physical - Physical exam Narrative exam: Gen: Not in acute distress, lying in bed, HEENT: Normocephalic, atraumatic Neck: supple, no JVD Heart: S1 and S2 reg, no murmurs, rubs or gallop Lungs: Clear, no crackles, no wheeze Abd: soft, non tender, non distended, normal BS Ext: No edema, no clubbing, no cyanosis, left BKA with non healing wound Neuro: Awake,alert, oriented x 3, moves all ext, non focal Psych:Normal mood - Constitutional Vitals: Temp Pulse Resp BP Pulse Ox 98.6 F 66 16 103/58 95 11/13/18 04:28 11/13/18 08:04 11/13/18 08:04 11/13/18 04:28 11/13/18 04:28 General appearance: Present: no acute distress, cachectic Results - Labs CBC & Chem 7: 11/12/18 12:29 11/10/18 06:27 Labs: Laboratory Last Values WBC 10.6 K/mm3 (4.5-11.0) 11/10/18 06:27 RBC 3.50 M/mm3 (3.65-5.03) L 11/10/18 06:27 Hgb 10.7 gm/dl (11.8-15.2) L 11/12/18 12:29 Hct 31.2 % (35.5-45.6) L 11/12/18 12:29 MCV 89 fl (84-94) 11/10/18 06:27 MCH 31 pg (28-32) 11/10/18 06:27 MCHC 34 % (32-34) 11/10/18 06:27 RDW 14.1 % (13.2-15.2) 11/10/18 06:27 Plt Count 534 K/mm3 (140-440) H 11/12/18 12:29 Lymph % (Auto) 16.3 % (13.4-35.0) 11/10/18 06:27 [place] % (Auto) 11.8 % (0.0-7.3) H 11/10/18 06:27 Eos % (Auto) 1.3 % (0.0-4.3) 11/10/18 06:27 Baso % (Auto) 0.8 % (0.0-1.8) 11/10/18 06:27 Lymph # 1.7 K/mm3 (1.2-5.4) 11/10/18 06:27 [place] # 1.2 K/mm3 (0.0-0.8) H 11/10/18 06:27 Eos # 0.1 K/mm3 (0.0-0.4) 11/10/18 06:27 Baso # 0.1 K/mm3 (0.0-0.1) 11/10/18 06:27 Add Manual Diff Complete 10/30/18 04:22 Total Counted 200 10/30/18 04:22 Seg Neutrophils % 69.8 % (40.0-70.0) 11/10/18 06:27 Seg Neuts % (Manual) 69.0 % (40.0-70.0) 10/30/18 04:22 26.0 % 10/30/18 04:22 1.5 % (13.4-35.0) L 10/30/18 04:22 Reactive Lymphs % (Man) 0 % 10/30/18 04:22 2.0 % (0.0-7.3) 10/30/18 04:22 0 % (0.0-4.3) 10/30/18 04:22 0 % (0.0-1.8) 10/30/18 04:22 1.0 % 10/30/18 04:22 0.5 % 10/30/18 04:22 0 % 10/30/18 04:22 0 % 10/30/18 04:22 Nucleated RBC % Not Reportable 10/30/18 04:22 Seg Neutrophils # 7.4 K/mm3 (1.8-7.7) 11/10/18 06:27 Seg Neutrophils # Man 18.6 K/mm3 (1.8-7.7) H 10/30/18 04:22 Band Neutrophils # 7.0 K/mm3 10/30/18 04:22 0.4 K/mm3 (1.2-5.4) L 10/30/18 04:22 Abs React Lymphs (Man) 0.0 K/mm3 10/30/18 04:22 0.5 K/mm3 (0.0-0.8) 10/30/18 04:22 0.0 K/mm3 (0.0-0.4) 10/30/18 04:22 0.0 K/mm3 (0.0-0.1) 10/30/18 04:22 0.3 K/mm3 10/30/18 04:22 0.1 K/mm3 10/30/18 04:22 0.0 K/mm3 10/30/18 04:22 Blast Cells # 0.0 K/mm3 10/30/18 04:22 Pathologist Review 10/11/18 00:16 WBC Morphology Not Reportable 10/30/18 04:22 WBC Morphology TNR 10/30/18 04:22 Hypersegmented Neuts Not Reportable 10/30/18 04:22 Hyposegmented Neuts Not Reportable 10/30/18 04:22 Hypogranular Neuts Not Reportable 10/30/18 04:22 Not Reportable 10/30/18 04:22 Not Reportable 10/30/18 04:22 Not Reportable 10/30/18 04:22 Not Reportable 10/30/18 04:22 Not Reportable 10/30/18 04:22 Not Reportable 10/30/18 04:22 Consistent w auto 10/30/18 04:22 Not Reportable 10/30/18 04:22 Plt Clumps, EDTA Not Reportable 10/30/18 04:22 Not Reportable 10/30/18 04:22 Not Reportable 10/30/18 04:22 Not Reportable 10/30/18 04:22 Plt Morphology Comment Not Reportable 10/30/18 04:22 RBC Morphology Not Reportable 10/30/18 04:22 Dimorphic RBCs Not Reportable 10/30/18 04:22 Not Reportable 10/30/18 04:22 Not Reportable 10/30/18 04:22 Not Reportable 10/30/18 04:22 Not Reportable 10/30/18 04:22 Not Reportable 10/30/18 04:22 Not Reportable 10/30/18 04:22 Not Reportable 10/30/18 04:22 Not Reportable 10/30/18 04:22 Not Reportable 10/30/18 04:22 Not Reportable 10/30/18 04:22 Not Reportable 10/30/18 04:22 Not Reportable 10/30/18 04:22 Not Reportable 10/30/18 04:22 Not Reportable 10/30/18 04:22 Not Reportable 10/30/18 04:22 Not Reportable 10/30/18 04:22 Not Reportable 10/30/18 04:22 Not Reportable 10/30/18 04:22 Not Reportable 10/30/18 04:22 Acanthocytes (Spur) Not Reportable 10/30/18 04:22 Rouleaux Not Reportable 10/30/18 04:22 Not Reportable 10/30/18 04:22 Not Reportable 10/30/18 04:22 Not Reportable 10/30/18 04:22 Not Reportable 10/30/18 04:22 Hem Pathologist Commnt No 10/30/18 04:22 PT 16.0 Sec. (12.2-14.9) H 11/12/18 12:29 INR 1.20 (0.87-1.13) H 11/12/18 12:29 APTT 32.9 Sec. (24.2-36.6) 11/12/18 12:29 Heparin Anti-Xa Level 1.50 U.I./ml (0.3-0.7) H 11/13/18 07:03 Heparin Anti-Xa, Unfract Negative (Negative) 10/15/18 12:00 POC ABG pH 7.393 (7.35-7.45) 10/16/18 12:51 POC ABG pCO2 48.9 (35-45) H 10/16/18 12:51 POC ABG pO2 92 (80-105) 10/16/18 12:51 POC ABG HCO3 29.8 (22-26 mml/L) 10/16/18 12:51 POC ABG Total CO2 31 (23-27mmol/L) 10/16/18 12:51 POC ABG O2 Sat 97 10/16/18 12:51 POC ABG Base Excess 5 ((-2) - (+3)mmol/L) 10/16/18 12:51 35 % 10/16/18 12:51 Sodium 135 mmol/L (137-145) L 11/10/18 06:27 Potassium 4.1 mmol/L (3.6-5.0) 11/10/18 06:27 Chloride 97.2 mmol/L (98-107) L 11/10/18 06:27 Carbon Dioxide 27 mmol/L (22-30) 11/10/18 06:27 15 mmol/L 11/10/18 06:27 BUN 11 mg/dL (9-20) 11/10/18 06:27 0.4 mg/dL (0.8-1.5) L 11/10/18 06:27 Estimated GFR > 60 ml/min 11/10/18 06:27 28 % 11/10/18 06:27 Glucose 137 mg/dL (75-100) H 11/10/18 06:27 POC Glucose 137 (70-105) H 11/13/18 08:09 Lactic Acid 2.70 mmol/L (0.7-2.0) H* 10/11/18 12:30 Calcium 8.7 mg/dL (8.4-10.2) 11/10/18 06:27 Phosphorus 2.80 mg/dL (2.5-4.5) 10/21/18 04:59 Magnesium 1.70 mg/dL (1.7-2.3) 11/01/18 05:52 0.70 mg/dL (0.1-1.2) 11/04/18 15:45 AST 38 units/L (5-40) 11/04/18 15:45 ALT 23 units/L (7-56) 11/04/18 15:45 54 units/L (35-129) 11/04/18 15:45 3647 units/L (55-170) H 10/12/18 04:04 CK-MB (CK-2) 48.3 ng/mL (0.0-4.0) H 10/12/18 04:04 CK-MB (CK-2) Rel Index 1.3 (0-4) 10/12/18 04:04 0.816 ng/mL (0.00-0.029) H* 10/13/18 16:15 6.8 g/dL (6.3-8.2) 11/04/18 15:45 2.6 g/dL (3.9-5) L 11/04/18 15:45 0.6 % 11/04/18 15:45 0.073 g/L (0.200-0.400) L 11/04/18 15:45 Triglycerides 87 mg/dL (2-149) 10/11/18 00:16 Cholesterol 73 mg/dL (50-199) 10/11/18 00:16 51 mg/dL (50-130) 10/11/18 00:16 19 mg/dL (40-59) L 10/11/18 00:16 3.84 % 10/11/18 00:16 See scanned report 10/15/18 12:00 Yellow (Yellow) 10/11/18 01:42 Cloudy (Clear) 10/11/18 01:42 6.0 (5.0-7.0) 10/11/18 01:42 Ur Specific [place] 1.011 (1.003-1.030) 10/11/18 01:42 100 mg/dl mg/dL (Negative) 10/11/18 01:42 >=500 mg/dL (Negative) 10/11/18 01:42 Neg mg/dL (Negative) 10/11/18 01:42 Mod (Negative) 10/11/18 01:42 Neg (Negative) 10/11/18 01:42 Neg (Negative) 10/11/18 01:42 4.0 mg/dL (<2.0) 10/11/18 01:42 Ur Leukocyte Esterase Neg (Negative) 10/11/18 01:42 5.0 /HPF (0.0-6.0) 10/11/18 01:42 2.0 /HPF (0.0-6.0) 10/11/18 01:42 U Epithel Cells (Auto) < 1.0 /HPF (0-13.0) 10/11/18 01:42 Amorphous Crystals 1+ 10/11/18 01:42 Few /HPF 10/11/18 01:42 2+ /HPF (JUNIOR DESIGNER) 10/11/18 01:42 Vancomycin Trough 8.3 ug/mL (5.0-20.0) 10/13/18 05:40 Salicylates < 0.3 mg/dL (2.8-20.0) L 10/11/18 00:16 Presumptive positive 10/11/18 01:42 Presumptive negative 10/11/18 01:42 Acetaminophen < 5.0 ug/mL (10.0-30.0) L 10/11/18 00:16 Ur Barbiturates Screen Presumptive negative 10/11/18 01:42 Ur Phencyclidine Scrn Presumptive negative 10/11/18 01:42 Ur Amphetamines Screen Presumptive positive 10/11/18 01:42 U Benzodiazepines Scrn Presumptive positive 10/11/18 01:42 Presumptive negative 10/11/18 01:42 U Marijuana (THC) Screen Presumptive negative 10/11/18 01:42 Disclamer 10/11/18 01:42 Plasma/Serum Alcohol < 0.01 % (0-0.07) 10/11/18 00:16 Heparin-induced Plt Ab Negative (Negative) 10/15/18 12:00 UF Heparin High Dose 0 % Release 10/15/18 12:00 AURELIO UFH Low Dose 0.1 0 % Release 10/15/18 12:00 AURELIO UFH Low Dose 0.5 0 % Release 10/15/18 12:00 Blood Type O POSITIVE 11/12/18 17:00 Antibody Screen TNR 11/12/18 17:00 DENNISE Antibody Screen Negative 11/12/18 17:00 Antibody Identification Negative 10/31/18 08:07 Direct Antiglob Test Negative 10/31/18 08:07 SHASHANK, Poly Interpret Negative 10/31/18 08:07 Crossmatch See Detail 11/12/18 17:00 Active Medications - Current Medications Current Medications: Generic Name Dose Route Start Last Admin Trade Name Freq PRN Reason Stop Dose Admin Acetaminophen 650 mg 10/11/18 04:04 10/21/18 22:21 Tylenol PO 650 mg Q4H PRN Administration Pain MILD(1-3)/Fever >100.5/HOLLINS Albuterol 2.5 mg 10/19/18 00:54 Proventil IH Q4HRT PRN Shortness Of Breath Albuterol/Ipratropium 1 ampul 10/19/18 08:00 11/13/18 08:02 Duoneb *Not For Prn Use* IH 1 ampul TIDRT ISAAC Administration Alprazolam 1 mg 10/20/18 13:06 11/13/18 07:53 Xanax PO 1 mg TID PRN Administration Anxiety Aspirin 81 mg 11/01/18 16:00 11/13/18 09:17 Halfprin Ec PO 81 mg QDAY ISAAC Administration Buprenorphine HCl 2 each 11/05/18 10:00 11/13/18 09:17 Suboxone 2 Mg-0.5 Mg SL 2 each QDAY ISAAC Administration Citalopram Hydrobromide 20 mg 11/05/18 10:00 11/13/18 09:16 Celexa PO 20 mg QDAY ISAAC Administration Dextrose 0 ml 10/11/18 03:57 10/11/18 10:18 D50w (25gm) Syringe IV 10 ml PRN PRN Administration Hypoglycemia Docusate Sodium 100 mg 11/04/18 22:00 11/13/18 09:18 Colace PO 100 mg BID ISAAC Administration Famotidine 20 mg 10/15/18 10:00 11/13/18 09:16 Pepcid PO 20 mg BID ISAAC Administration Heparin Sodium/Sodium Chloride 25,000 unit in 500 mls @ 14 mls/hr 11/12/18 12:30 11/12/18 23:00 Heparin/ 0.45% Nacl-25,000 Unit/500 Ml IV 600 units/hr TITR ISAAC 12 mls/hr Titration Protocol 700 UNITS/HR Insulin Human Regular 0 units 10/17/18 11:30 11/13/18 08:23 Humulin R SUB-Q Not Given ACHS ISAAC Protocol Metoprolol Tartrate 25 mg 10/18/18 22:00 11/13/18 09:16 Lopressor PO 25 mg BID ISAAC Administration Metoprolol Tartrate 2.5 mg 10/18/18 18:51 10/18/18 22:19 Lopressor IV 2.5 mg Q6H PRN Administration Tachyarrhythmias Naloxone HCl 0.1 mg 10/29/18 16:03 Narcan 0.4 Mg/1 Ml IV Q2MIN PRN Res Rate </= 8 or 02 SAT < 92% Ondansetron HCl 4 mg 10/11/18 04:04 11/01/18 22:12 Zofran IV 4 mg Q8H PRN Administration Nausea And Vomiting Oxycodone/Acetaminophen 1 tab 11/11/18 10:21 11/13/18 06:12 Percocet 5/325 PO 1 tab Q4H PRN Administration Pain, Moderate (4-6) Nutrition/Malnutrition Assess - Dietary Evaluation Nutrition/Malnutrition Findings: Nutrition Notes Start: 10/11/18 12:39 Freq: Status: Active Protocol: Document 11/06/18 16:04 SHERLY (Rec: 11/06/18 16:14 SHERLY [id number] [email or web address]) Nutrition Notes Initial or Follow up Reassessment Current Diagnosis COPD,Diabetes,Sepsis, Hypertension,Heart Failure, Stroke Other Pertinent Diagnosis s/p (L) BKA Current Diet Mech soft + Glucerna and Hernesto BID Labs/Tests BG 163 Pertinent Medications Reviewed Height 6 ft 3 in Weight 55.2 kg [place] Body Weight (kg) 89.09 BMI 15.2 Weight change and time frame Current wt obtained from bed scale. Adj wt for BKA: 58.66kg Adj BMI: 16.1 Subjective/Other Information Pt has consumed 55% of meals over the past two days. He is confused at times and requires assistance during meal times. RD assisted pt with lunch today; he ate <25% of meal. He is edentulous, but does not want pureed foods. Takes him a long time to chew foods. Pt encouraged to drink ONS ( Glucerna and [place]) Percent of energy/protein needs met: 62% energy 66% pro (without ONS) Burn Absent Trauma Absent #2 Nutrition Diagnosis Inadequate oral intake Diagnosis Progress(for reassessment Continues documentation) #1 Nutrition Diagnosis Malnutrition Diagnosis Progress(for reassessment Continues documentation) Is patient on ventilator? No Is Patient Ambulatory and/or Out of Bed Yes REE-([place]-St. Jeor-ambulatory/OOB) [ 1907.919 NUTR.[id number]] Kcal/Kg value to use for calculation 40 Approximate Energy Requirements Using 2208 kcal/Kg Calculation Used for Recommendations Kcal/kg Additional Notes Pro needs 1.5-2g/k-110g/ day Fluid needs 1ml/kcal Nutrition Intervention Change Diet Order: Continue current diet order Add Supplement/Snack (indicate name/kcal Glucerna BID + [place] BID /protein ) Provides kCal: 630 Provides Protein (gm) 25 Goal #1 PO intake of meals plus ONS to meet 100% energy and pro needs Goal #2 Wt maintenance and/or gain Follow-Up By: 11/13/18 Additional Comments F/U: intakes, wt - Attestation Statement I have reviewed and agreed w/ Malnutrition eval & tx plan: Yes
--- NOTE | 2018-11-13 12:14 | Progress Note ---
Assessment and Plan Plan for right [id number] amputation today. Subjective Date of service: 11/13/18 Principal diagnosis: Ac hypercapnic hypoxemic Resp failure; Drug OD; AE-COPD; NINOSKA; Seizures Interval history: Patient with left BKA and right revascularization with dry gangrene to the distal right toes. Patient is scheduled for revision of his left BKA to a left AKA given the non-viability of the distal stump. Objective - Constitutional Vitals: Vital Signs - 12hr 11/13/18 11/13/18 11/13/18 00:19 04:00 04:28 Temperature 98.6 F Pulse Rate 70 Pulse Rate [ Posterior] Pulse Rate [ Throughout] Respiratory 17 14 Rate Respiratory 17 Rate [Abdomen] Respiratory 17 Rate [Left Leg] Respiratory Rate [Posterior ] Respiratory 17 Rate [Right Arm ] Respiratory Rate [ Throughout] Blood Pressure 103/58 O2 Sat by Pulse 95 Oximetry 11/13/18 11/13/18 11/13/18 06:12 07:12 08:04 Temperature Pulse Rate Pulse Rate [ 70 Posterior] Pulse Rate [ 66 Throughout] Respiratory 18 17 Rate Respiratory Rate [Abdomen] Respiratory Rate [Left Leg] Respiratory 18 Rate [Posterior ] Respiratory Rate [Right Arm ] Respiratory 16 Rate [ Throughout] Blood Pressure O2 Sat by Pulse Oximetry General appearance: Present: no acute distress - EENT Eyes: PERRL, EOM intact ENT: hearing intact - Neck Neck: supple, normal ROM - Respiratory Respiratory effort: normal - Breasts Breasts: deferred Extremities: abnormal - Gastrointestinal General gastrointestinal: Present: deferred - Genitourinary Male genitourinary: deferred - Psychiatric Psychiatric: appropriate mood/affect, cooperative - Labs CBC & Chem 7: 11/12/18 12:29 11/10/18 06:27 Labs: Abnormal lab results 11/12/18 11/12/18 11/12/18 Range/Units 12:29 12:29 15:21 Hgb 10.7 L (11.8-15.2) gm/dl Hct 31.2 L (35.5-45.6) % Plt Count 534 H (140-440) K/mm3 PT 16.0 H (12.2-14.9) Sec. INR 1.20 H (0.87-1.13) Heparin Anti-Xa Level 2.00 H (0.3-0.7) U.I./ml POC Glucose (70-105) Crossmatch 11/12/18 11/12/18 11/12/18 Range/Units 17:00 17:29 20:13 Hgb (11.8-15.2) gm/dl Hct (35.5-45.6) % Plt Count (140-440) K/mm3 PT (12.2-14.9) Sec. INR (0.87-1.13) Heparin Anti-Xa Level 1.97 H (0.3-0.7) U.I./ml POC Glucose 125 H (70-105) Crossmatch See Detail 11/12/18 11/13/18 11/13/18 Range/Units 21:11 07:03 08:09 Hgb (11.8-15.2) gm/dl Hct (35.5-45.6) % Plt Count (140-440) K/mm3 PT (12.2-14.9) Sec. INR (0.87-1.13) Heparin Anti-Xa Level 1.50 H (0.3-0.7) U.I./ml POC Glucose 128 H 137 H (70-105) Crossmatch Medications & Allergies - Medications Allergies/Adverse Reactions: Allergies No Known Allergies Allergy (Verified 10/31/14 11:20) Home Medications: Home Medications Medication Instructions Recorded Confirmed Last Taken Type Gabapentin [Neurontin] 90 mg PO Q8HR 04/22/15 11/01/18 04/21/15 History ALPRAZolam [Xanax TAB] 1 mg PO TID PRN #30 tablet 03/28/16 11/01/18 Unknown Rx Albuterol Sulfate [Ventolin HFA] 2 puff IH Q4H PRN #1 hfa.aer.ad 03/28/16 11/01/18 Unknown Rx Ciprofloxacin HCl [Ciprofloxacin 500 mg PO Q12HR #30 tab 03/28/16 11/01/18 Unknown Rx TAB] Citalopram [celeXA] 10 mg PO QDAY #30 tablet 03/28/16 11/01/18 Unknown Rx Nicotine [Habitrol] 14 mg TD QDAY #30 patch 03/28/16 11/01/18 Unknown Rx Sitagliptin Phos/Metformin HCl 1 tab PO QDAY #30 tbmp.24hr 03/28/16 11/01/18 Unknown Rx [Janumet XR 100-1,000 mg] oxyCODONE /ACETAMINOPHEN [Percocet 1 tab PO Q6H PRN #60 tablet 03/28/16 11/01/18 Unknown Rx 5/325 mg] Active Medications: Generic Name Dose Route Start Last Admin Trade Name Freq PRN Reason Stop Dose Admin Acetaminophen 650 mg 10/11/18 04:04 10/21/18 22:21 Tylenol PO 650 mg Q4H PRN Administration Pain MILD(1-3)/Fever >100.5/HOLLINS Albuterol 2.5 mg 10/19/18 00:54 Proventil IH Q4HRT PRN Shortness Of Breath Albuterol/Ipratropium 1 ampul 10/19/18 08:00 11/13/18 08:02 Duoneb *Not For Prn Use* IH 1 ampul TIDRT ISAAC Administration Alprazolam 1 mg 10/20/18 13:06 11/13/18 07:53 Xanax PO 1 mg TID PRN Administration Anxiety Aspirin 81 mg 11/01/18 16:00 11/13/18 09:17 Halfprin Ec PO 81 mg QDAY ISAAC Administration Buprenorphine HCl 2 each 11/05/18 10:00 11/13/18 09:17 Suboxone 2 Mg-0.5 Mg SL 2 each QDAY ISAAC Administration Citalopram Hydrobromide 20 mg 11/05/18 10:00 11/13/18 09:16 Celexa PO 20 mg QDAY ISAAC Administration Dextrose 0 ml 10/11/18 03:57 10/11/18 10:18 D50w (25gm) Syringe IV 10 ml PRN PRN Administration Hypoglycemia Docusate Sodium 100 mg 11/04/18 22:00 11/13/18 09:18 Colace PO 100 mg BID ISAAC Administration Famotidine 20 mg 10/15/18 10:00 11/13/18 09:16 Pepcid PO 20 mg BID ISAAC Administration Heparin Sodium/Sodium Chloride 25,000 unit in 500 mls @ 14 mls/hr 11/12/18 12:30 11/13/18 10:59 Heparin/ 0.45% Nacl-25,000 Unit/500 Ml IV 500 units/hr TITR ISAAC 10 mls/hr Titration Protocol 700 UNITS/HR Insulin Human Regular 0 units 10/17/18 11:30 11/13/18 08:23 Humulin R SUB-Q Not Given ACHS ISAAC Protocol Metoprolol Tartrate 25 mg 10/18/18 22:00 11/13/18 09:16 Lopressor PO 25 mg BID ISAAC Administration Metoprolol Tartrate 2.5 mg 10/18/18 18:51 10/18/18 22:19 Lopressor IV 2.5 mg Q6H PRN Administration Tachyarrhythmias Naloxone HCl 0.1 mg 10/29/18 16:03 Narcan 0.4 Mg/1 Ml IV Q2MIN PRN Res Rate </= 8 or 02 SAT < 92% Ondansetron HCl 4 mg 10/11/18 04:04 11/01/18 22:12 Zofran IV 4 mg Q8H PRN Administration Nausea And Vomiting Oxycodone/Acetaminophen 1 tab 11/11/18 10:21 11/13/18 10:58 Percocet 5/325 PO 1 tab Q4H PRN Administration Pain, Moderate (4-6)
[2018-11-13] MEDS ORDERED: MARCAINE-EPI 0.25%-1:200,000 INFILTRATI ONE ×2 (13:31→17:30)
--- NOTE | 2018-11-13 14:17 | Progress Note ---
Assessment and Plan Patient sleeping at this time. Resting on room air. O2 saturation 97%. Patient weak. No acute respiratory distress.Patient afebrile. No Leukocytosis. - Patient Problems (1) Acute respiratory failure Current Visit: Yes Status: Acute Plan to address problem: Albuterol/atrovent aerosol treatments q 6 hours. Patient is on Apixaban. Continue famotidine. (2) Acute CVA (cerebrovascular accident) Current Visit: Yes Status: Acute Plan to address problem: Management as per neurology. (3) Altered mental state Current Visit: Yes Status: Acute Qualifiers: Altered mental status type: unspecified Qualified Code(s): R41.82 - Altered mental status, unspecified Plan to address problem: Management as per primary care. (4) Atrial fibrillation Current Visit: Yes Status: Acute Plan to address problem: Management as per primary care and cardiology. Patient is on Apixaban (5) Diabetes mellitus with hyperglycemia Current Visit: Yes Status: Acute Plan to address problem: Management as per primary care. (6) Polysubstance abuse Current Visit: Yes Status: Chronic Plan to address problem: Management as per primary care. (7) Tobacco use Current Visit: Yes Status: Chronic Plan to address problem: Counselled to stop smoking. 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 Patient awake. resting on 2 litres O2 and O2 saturation 98%. Patient weak and no acute respiratory distress at this time. Objective Vital Signs - 12hr 11/13/18 11/13/18 11/13/18 04:00 04:28 06:12 Temperature 98.6 F Pulse Rate 70 Pulse Rate [ Posterior] Pulse Rate [ Throughout] Respiratory 14 18 Rate Respiratory 17 Rate [Abdomen] Respiratory 17 Rate [Left Leg] Respiratory Rate [Posterior ] Respiratory 17 Rate [Right Arm ] Respiratory Rate [ Throughout] Blood Pressure 103/58 O2 Sat by Pulse 95 Oximetry 11/13/18 11/13/18 11/13/18 07:12 08:04 12:39 Temperature 97.4 F L Pulse Rate 65 Pulse Rate [ 70 Posterior] Pulse Rate [ 66 Throughout] Respiratory 17 18 Rate Respiratory Rate [Abdomen] Respiratory Rate [Left Leg] Respiratory 18 Rate [Posterior ] Respiratory Rate [Right Arm ] Respiratory 16 Rate [ Throughout] Blood Pressure 88/54 O2 Sat by Pulse 91 Oximetry 11/13/18 13:54 Temperature Pulse Rate Pulse Rate [ 67 Posterior] Pulse Rate [ 73 Throughout] Respiratory Rate Respiratory Rate [Abdomen] Respiratory Rate [Left Leg] Respiratory 16 Rate [Posterior ] Respiratory Rate [Right Arm ] Respiratory 16 Rate [ Throughout] Blood Pressure O2 Sat by Pulse Oximetry Constitutional: no acute distress, alert, other (middle aged but chronically ill looking CM; Atraumatic) Eyes: non-icteric ENT: oropharynx moist, other (mallampati 2) Neck: supple, no lymphadenopathy, no JVD Effort: normal Ascultation: Bilateral: diminished breath sounds, rhonchi (scant) Percussion: Bilateral: not dull Cardiovascular: irregular rhythm, other (No R/M) Gastrointestinal: normoactive bowel sounds, soft, non-tender, non-distended Integumentary: other (s/p left BKA) Extremities: no edema, other (S/P Left AKA. 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 (12.2-14.9) H 11/12/18 12:29 INR 1.20 (0.87-1.13) H 11/12/18 12:29 Abnormal lab findings: Abnormal Labs 10/11/18 10/11/18 10/11/18 00:16 00:16 00:16 WBC 20.1 H RBC Hgb Hct MCV 98 H MCHC RDW 15.4 H Plt Count Lymph % (Auto) [place]ickman % (Auto) [place] # Seg Neutrophils % Seg Neuts % (Manual) Lymphocytes % (Manual) 5.0 L Monocytes % (Manual) 25.0 H Seg Neutrophils # Seg Neutrophils # Man 9.2 H Lymphocytes # (Manual) 1.0 L Monocytes # (Manual) 5.0 H PT INR APTT Heparin Anti-Xa Level POC ABG pH POC ABG pCO2 POC ABG pO2 Sodium Potassium 5.8 H Chloride Carbon Dioxide 17 L BUN Creatinine 2.2 H Glucose 348 H POC Glucose Lactic Acid 13.70 H* Calcium 7.7 L Phosphorus Total Bilirubin 1.50 H AST 179 H ALT 110 H Total Creatine Kinase 324 H CK-MB (CK-2) Troponin T 0.257 H* Total Protein 5.9 L Albumin 2.9 L Prealbumin HDL Cholesterol 19 L Salicylates Acetaminophen Crossmatch 10/11/18 10/11/18 10/11/18 00:16 00:16 01:21 WBC RBC Hgb Hct MCV MCHC RDW Plt Count Lymph % (Auto) [place] % (Auto) [place] # Seg Neutrophils % Seg Neuts % (Manual) Lymphocytes % (Manual) Monocytes % (Manual) Seg Neutrophils # Seg Neutrophils # Man Lymphocytes # (Manual) Monocytes # (Manual) PT INR APTT Heparin Anti-Xa Level POC ABG pH 7.110 L POC ABG pCO2 50.3 H POC ABG pO2 65 L Sodium Potassium Chloride Carbon Dioxide BUN Creatinine Glucose POC Glucose Lactic Acid Calcium Phosphorus Total Bilirubin AST ALT Total Creatine Kinase CK-MB (CK-2) Troponin T Total Protein Albumin Prealbumin HDL Cholesterol Salicylates < 0.3 L Acetaminophen < 5.0 L Crossmatch 10/11/18 10/11/18 10/11/18 01:22 03:27 04:14 WBC RBC Hgb Hct MCV MCHC RDW Plt Count Lymph % (Auto) [place] % (Auto) [place] # Seg Neutrophils % Seg Neuts % (Manual) Lymphocytes % (Manual) Monocytes % (Manual) Seg Neutrophils # Seg Neutrophils # Man Lymphocytes # (Manual) Monocytes # (Manual) PT INR APTT Heparin Anti-Xa Level POC ABG pH POC ABG pCO2 POC ABG pO2 Sodium Potassium Chloride Carbon Dioxide BUN Creatinine Glucose POC Glucose Lactic Acid 8.50 H* 4.10 H* Calcium Phosphorus 4.90 H Total Bilirubin AST ALT Total Creatine Kinase CK-MB (CK-2) Troponin T Total Protein Albumin Prealbumin HDL Cholesterol Salicylates Acetaminophen Crossmatch 10/11/18 10/11/18 10/11/18 04:14 04:14 04:14 WBC RBC Hgb Hct MCV MCHC RDW Plt Count Lymph % (Auto) [place] % (Auto) [place] # Seg Neutrophils % Seg Neuts % (Manual) Lymphocytes % (Manual) Monocytes % (Manual) Seg Neutrophils # Seg Neutrophils # Man Lymphocytes # (Manual) Monocytes # (Manual) PT INR APTT Heparin Anti-Xa Level POC ABG pH POC ABG pCO2 POC ABG pO2 Sodium Potassium 5.6 H Chloride Carbon Dioxide 19 L BUN Creatinine 1.6 H Glucose 329 H POC Glucose 328 H Lactic Acid Calcium 7.3 L Phosphorus Total Bilirubin AST ALT Total Creatine Kinase CK-MB (CK-2) Troponin T 1.130 H* D Total Protein Albumin Prealbumin HDL Cholesterol Salicylates Acetaminophen Crossmatch 10/11/18 10/11/18 10/11/18 05:10 05:32 05:58 WBC RBC Hgb Hct MCV MCHC RDW Plt Count Lymph % (Auto) [place] % (Auto) [place] # Seg Neutrophils % Seg Neuts % (Manual) Lymphocytes % (Manual) Monocytes % (Manual) Seg Neutrophils # Seg Neutrophils # Man Lymphocytes # (Manual) Monocytes # (Manual) PT INR APTT Heparin Anti-Xa Level POC ABG pH 7.259 L POC ABG pCO2 45.6 H POC ABG pO2 Sodium Potassium Chloride 108.6 H Carbon Dioxide 20 L BUN Creatinine 1.8 H Glucose 269 H POC Glucose 273 H Lactic Acid Calcium 7.0 L Phosphorus Total Bilirubin AST ALT Total Creatine Kinase CK-MB (CK-2) Troponin T Total Protein Albumin Prealbumin HDL Cholesterol Salicylates Acetaminophen Crossmatch 10/11/18 10/11/18 10/11/18 05:58 06:39 07:00 WBC RBC Hgb Hct MCV MCHC RDW Plt Count Lymph % (Auto) [place] % (Auto) [place] # Seg Neutrophils % Seg Neuts % (Manual) Lymphocytes % (Manual) Monocytes % (Manual) Seg Neutrophils # Seg Neutrophils # Man Lymphocytes # (Manual) Monocytes # (Manual) PT INR APTT Heparin Anti-Xa Level POC ABG pH POC ABG pCO2 POC ABG pO2 Sodium Potassium Chloride Carbon Dioxide BUN Creatinine Glucose POC Glucose 247 H Lactic Acid 3.20 H* 3.30 H* Calcium Phosphorus Total Bilirubin AST ALT Total Creatine Kinase CK-MB (CK-2) Troponin T Total Protein Albumin Prealbumin HDL Cholesterol Salicylates Acetaminophen Crossmatch 10/11/18 10/11/18 10/11/18 07:00 07:30 07:36 WBC RBC Hgb Hct MCV MCHC RDW Plt Count Lymph % (Auto) [place] % (Auto) [place] # Seg Neutrophils % Seg Neuts % (Manual) Lymphocytes % (Manual) Monocytes % (Manual) Seg Neutrophils # Seg Neutrophils # Man Lymphocytes # (Manual) Monocytes # (Manual) PT INR APTT Heparin Anti-Xa Level POC ABG pH POC ABG pCO2 POC ABG pO2 Sodium 146 H Potassium Chloride 112.1 H Carbon Dioxide 21 L BUN Creatinine 1.6 H Glucose 218 H POC Glucose Lactic Acid 3.20 H* Calcium 7.0 L Phosphorus Total Bilirubin AST ALT Total Creatine Kinase CK-MB (CK-2) Troponin T 1.020 H* Total Protein Albumin Prealbumin HDL Cholesterol Salicylates Acetaminophen Crossmatch 10/11/18 10/11/18 10/11/18 07:43 08:29 08:29 WBC RBC Hgb 16.2 H Hct 49.9 H D MCV MCHC RDW Plt Count Lymph % (Auto) [place] % (Auto) [place] # Seg Neutrophils % Seg Neuts % (Manual) Lymphocytes % (Manual) Monocytes % (Manual) Seg Neutrophils # Seg Neutrophils # Man Lymphocytes # (Manual) Monocytes # (Manual) PT INR APTT Heparin Anti-Xa Level POC ABG pH POC ABG pCO2 POC ABG pO2 Sodium Potassium Chloride Carbon Dioxide BUN Creatinine Glucose POC Glucose 174 H Lactic Acid 3.90 H* Calcium Phosphorus Total Bilirubin AST ALT Total Creatine Kinase CK-MB (CK-2) Troponin T Total Protein Albumin Prealbumin HDL Cholesterol Salicylates Acetaminophen Crossmatch 10/11/18 10/11/18 10/11/18 08:29 08:42 11:05 WBC RBC Hgb Hct MCV MCHC RDW Plt Count Lymph % (Auto) [place] % (Auto) [place] # Seg Neutrophils % Seg Neuts % (Manual) Lymphocytes % (Manual) Monocytes % (Manual) Seg Neutrophils # Seg Neutrophils # Man Lymphocytes # (Manual) Monocytes # (Manual) PT INR APTT 24.1 L Heparin Anti-Xa Level POC ABG pH POC ABG pCO2 POC ABG pO2 Sodium 147 H Potassium Chloride 113.3 H Carbon Dioxide 21 L BUN Creatinine 1.7 H Glucose 119 H POC Glucose 164 H Lactic Acid Calcium 7.7 L Phosphorus Total Bilirubin AST ALT Total Creatine Kinase CK-MB (CK-2) Troponin T Total Protein Albumin Prealbumin HDL Cholesterol Salicylates Acetaminophen Crossmatch 10/11/18 10/11/18 10/11/18 11:05 11:06 12:30 WBC RBC Hgb Hct MCV MCHC RDW Plt Count Lymph % (Auto) [place] % (Auto) [place] # Seg Neutrophils % Seg Neuts % (Manual) Lymphocytes % (Manual) Monocytes % (Manual) Seg Neutrophils # Seg Neutrophils # Man Lymphocytes # (Manual) Monocytes # (Manual) PT INR APTT Heparin Anti-Xa Level POC ABG pH POC ABG pCO2 POC ABG pO2 Sodium 148 H Potassium Chloride 113.4 H Carbon Dioxide 21 L BUN Creatinine 1.6 H Glucose 119 H POC Glucose 116 H Lactic Acid 3.20 H* Calcium 7.5 L Phosphorus Total Bilirubin AST ALT Total Creatine Kinase CK-MB (CK-2) Troponin T Total Protein Albumin Prealbumin HDL Cholesterol Salicylates Acetaminophen Crossmatch 10/11/18 10/11/18 10/11/18 12:30 13:16 13:25 WBC RBC Hgb Hct MCV MCHC RDW Plt Count Lymph % (Auto) [place] % (Auto) [place] # Seg Neutrophils % Seg Neuts % (Manual) Lymphocytes % (Manual) Monocytes % (Manual) Seg Neutrophils # Seg Neutrophils # Man Lymphocytes # (Manual) Monocytes # (Manual) PT INR APTT Heparin Anti-Xa Level POC ABG pH 7.247 L POC ABG pCO2 48.4 H POC ABG pO2 Sodium Potassium Chloride Carbon Dioxide BUN Creatinine Glucose POC Glucose 112 H Lactic Acid 2.70 H* Calcium Phosphorus Total Bilirubin AST ALT Total Creatine Kinase CK-MB (CK-2) Troponin T Total Protein Albumin Prealbumin HDL Cholesterol Salicylates Acetaminophen Crossmatch 10/11/18 10/11/18 10/11/18 14:41 15:27 16:13 WBC RBC Hgb Hct MCV MCHC RDW Plt Count Lymph % (Auto) [place] % (Auto) [place] # Seg Neutrophils % Seg Neuts % (Manual) Lymphocytes % (Manual) Monocytes % (Manual) Seg Neutrophils # Seg Neutrophils # Man Lymphocytes # (Manual) Monocytes # (Manual) PT INR APTT Heparin Anti-Xa Level POC ABG pH POC ABG pCO2 POC ABG pO2 Sodium Potassium Chloride Carbon Dioxide BUN Creatinine Glucose POC Glucose 127 H 141 H 134 H Lactic Acid Calcium Phosphorus Total Bilirubin AST ALT Total Creatine Kinase CK-MB (CK-2) Troponin T Total Protein Albumin Prealbumin HDL Cholesterol Salicylates Acetaminophen Crossmatch 10/11/18 10/11/18 10/11/18 17:18 18:23 19:38 WBC RBC Hgb Hct MCV MCHC RDW Plt Count Lymph % (Auto) [place] % (Auto) [place] # Seg Neutrophils % Seg Neuts % (Manual) Lymphocytes % (Manual) Monocytes % (Manual) Seg Neutrophils # Seg Neutrophils # Man Lymphocytes # (Manual) Monocytes # (Manual) PT INR APTT Heparin Anti-Xa Level POC ABG pH POC ABG pCO2 POC ABG pO2 Sodium 148 H Potassium Chloride 112.7 H Carbon Dioxide BUN 23 H Creatinine Glucose 143 H POC Glucose 132 H 129 H Lactic Acid Calcium 7.9 L Phosphorus Total Bilirubin AST ALT Total Creatine Kinase CK-MB (CK-2) Troponin T Total Protein Albumin Prealbumin HDL Cholesterol Salicylates Acetaminophen Crossmatch 10/11/18 10/11/18 10/11/18 20:19 20:36 21:01 WBC RBC Hgb Hct MCV MCHC RDW Plt Count Lymph % (Auto) [place] % (Auto) [place] # Seg Neutrophils % Seg Neuts % (Manual) Lymphocytes % (Manual) Monocytes % (Manual) Seg Neutrophils # Seg Neutrophils # Man Lymphocytes # (Manual) Monocytes # (Manual) PT INR APTT Heparin Anti-Xa Level POC ABG pH 7.281 L POC ABG pCO2 POC ABG pO2 Sodium Potassium Chloride Carbon Dioxide BUN Creatinine Glucose POC Glucose 129 H 151 H Lactic Acid Calcium Phosphorus Total Bilirubin AST ALT Total Creatine Kinase CK-MB (CK-2) Troponin T Total Protein Albumin Prealbumin HDL Cholesterol Salicylates Acetaminophen Crossmatch 10/11/18 10/11/18 10/12/18 22:04 23:15 01:18 WBC RBC Hgb Hct MCV MCHC RDW Plt Count Lymph % (Auto) [place] % (Auto) [place] # Seg Neutrophils % Seg Neuts % (Manual) Lymphocytes % (Manual) Monocytes % (Manual) Seg Neutrophils # Seg Neutrophils # Man Lymphocytes # (Manual) Monocytes # (Manual) PT INR APTT Heparin Anti-Xa Level POC ABG pH POC ABG pCO2 POC ABG pO2 Sodium Potassium Chloride Carbon Dioxide BUN Creatinine Glucose POC Glucose 147 H 143 H 158 H Lactic Acid Calcium Phosphorus Total Bilirubin AST ALT Total Creatine Kinase CK-MB (CK-2) Troponin T Total Protein Albumin Prealbumin HDL Cholesterol Salicylates Acetaminophen Crossmatch 10/12/18 10/12/18 10/12/18 02:13 03:18 04:04 WBC RBC Hgb Hct MCV MCHC RDW Plt Count Lymph % (Auto) [place] % (Auto) [place] # Seg Neutrophils % Seg Neuts % (Manual) Lymphocytes % (Manual) Monocytes % (Manual) Seg Neutrophils # Seg Neutrophils # Man Lymphocytes # (Manual) Monocytes # (Manual) PT INR APTT Heparin Anti-Xa Level POC ABG pH POC ABG pCO2 POC ABG pO2 Sodium 147 H Potassium Chloride 111.1 H Carbon Dioxide BUN 30 H Creatinine 2.0 H Glucose 154 H POC Glucose 148 H 142 H Lactic Acid Calcium 8.1 L Phosphorus Total Bilirubin AST 269 H ALT 204 H Total Creatine Kinase 3647 H CK-MB (CK-2) 48.3 H Troponin T 2.230 H* D Total Protein 5.8 L Albumin 2.6 L Prealbumin HDL Cholesterol Salicylates Acetaminophen Crossmatch 10/12/18 10/12/18 10/12/18 04:04 04:08 04:19 WBC 24.4 H RBC Hgb Hct MCV MCHC RDW Plt Count Lymph % (Auto) [place] % (Auto) [place] # Seg Neutrophils % Seg Neuts % (Manual) 32.0 L Lymphocytes % (Manual) Monocytes % (Manual) 8.0 H Seg Neutrophils # Seg Neutrophils # Man 7.8 H Lymphocytes # (Manual) Monocytes # (Manual) 2.0 H PT INR APTT Heparin Anti-Xa Level POC ABG pH 7.317 L POC ABG pCO2 49.3 H POC ABG pO2 Sodium Potassium Chloride Carbon Dioxide BUN Creatinine Glucose POC Glucose 143 H Lactic Acid Calcium Phosphorus Total Bilirubin AST ALT Total Creatine Kinase CK-MB (CK-2) Troponin T Total Protein Albumin Prealbumin HDL Cholesterol Salicylates Acetaminophen Crossmatch 10/12/18 10/12/18 10/12/18 05:29 06:52 08:09 WBC RBC Hgb Hct MCV MCHC RDW Plt Count Lymph % (Auto) [place] % (Auto) [place] # Seg Neutrophils % Seg Neuts % (Manual) Lymphocytes % (Manual) Monocytes % (Manual) Seg Neutrophils # Seg Neutrophils # Man Lymphocytes # (Manual) Monocytes # (Manual) PT INR APTT Heparin Anti-Xa Level POC ABG pH 7.322 L POC ABG pCO2 46.5 H POC ABG pO2 Sodium Potassium Chloride Carbon Dioxide BUN Creatinine Glucose POC Glucose 196 H 226 H Lactic Acid Calcium Phosphorus Total Bilirubin AST ALT Total Creatine Kinase CK-MB (CK-2) Troponin T Total Protein Albumin Prealbumin HDL Cholesterol Salicylates Acetaminophen Crossmatch 10/12/18 10/12/18 10/12/18 08:38 10:03 15:50 WBC RBC Hgb Hct MCV MCHC RDW Plt Count Lymph % (Auto) [place] % (Auto) [place] # Seg Neutrophils % Seg Neuts % (Manual) Lymphocytes % (Manual) Monocytes % (Manual) Seg Neutrophils # Seg Neutrophils # Man Lymphocytes # (Manual) Monocytes # (Manual) PT INR APTT Heparin Anti-Xa Level POC ABG pH POC ABG pCO2 POC ABG pO2 Sodium Potassium Chloride Carbon Dioxide BUN Creatinine Glucose POC Glucose 138 H 148 H 221 H Lactic Acid Calcium Phosphorus Total Bilirubin AST ALT Total Creatine Kinase CK-MB (CK-2) Troponin T Total Protein Albumin Prealbumin HDL Cholesterol Salicylates Acetaminophen Crossmatch 10/12/18 10/12/18 10/12/18 18:39 20:56 21:34 WBC RBC Hgb Hct MCV MCHC RDW Plt Count Lymph % (Auto) [place] % (Auto) [place] # Seg Neutrophils % Seg Neuts % (Manual) Lymphocytes % (Manual) Monocytes % (Manual) Seg Neutrophils # Seg Neutrophils # Man Lymphocytes # (Manual) Monocytes # (Manual) PT INR APTT Heparin Anti-Xa Level POC ABG pH 7.336 L POC ABG pCO2 46.0 H POC ABG pO2 Sodium Potassium Chloride Carbon Dioxide BUN Creatinine Glucose POC Glucose 255 H 260 H Lactic Acid Calcium Phosphorus Total Bilirubin AST ALT Total Creatine Kinase CK-MB (CK-2) Troponin T Total Protein Albumin Prealbumin HDL Cholesterol Salicylates Acetaminophen Crossmatch 10/13/18 10/13/18 10/13/18 02:29 05:09 05:40 WBC 17.0 H RBC Hgb Hct MCV MCHC RDW Plt Count Lymph % (Auto) [place] % (Auto) 9.2 H [place] # 1.6 H Seg Neutrophils % 76.2 H Seg Neuts % (Manual) Lymphocytes % (Manual) Monocytes % (Manual) Seg Neutrophils # 12.9 H Seg Neutrophils # Man Lymphocytes # (Manual) Monocytes # (Manual) PT INR APTT Heparin Anti-Xa Level POC ABG pH POC ABG pCO2 POC ABG pO2 Sodium Potassium Chloride Carbon Dioxide BUN Creatinine Glucose POC Glucose 216 H 249 H Lactic Acid Calcium Phosphorus Total Bilirubin AST ALT Total Creatine Kinase CK-MB (CK-2) Troponin T Total Protein Albumin Prealbumin HDL Cholesterol Salicylates Acetaminophen Crossmatch 10/13/18 10/13/18 10/13/18 05:40 05:40 09:46 WBC RBC Hgb Hct MCV MCHC RDW Plt Count Lymph % (Auto) [place] % (Auto) [place] # Seg Neutrophils % Seg Neuts % (Manual) Lymphocytes % (Manual) Monocytes % (Manual) Seg Neutrophils # Seg Neutrophils # Man Lymphocytes # (Manual) Monocytes # (Manual) PT INR APTT Heparin Anti-Xa Level POC ABG pH POC ABG pCO2 POC ABG pO2 Sodium 146 H Potassium Chloride 109.8 H Carbon Dioxide BUN 35 H Creatinine Glucose 245 H POC Glucose 235 H Lactic Acid Calcium 7.9 L Phosphorus Total Bilirubin AST ALT Total Creatine Kinase CK-MB (CK-2) Troponin T 0.952 H* D Total Protein Albumin Prealbumin HDL Cholesterol Salicylates Acetaminophen Crossmatch 10/13/18 10/13/18 10/13/18 13:58 16:15 17:30 WBC RBC Hgb Hct MCV MCHC RDW Plt Count Lymph % (Auto) [place] % (Auto) [place] # Seg Neutrophils % Seg Neuts % (Manual) Lymphocytes % (Manual) Monocytes % (Manual) Seg Neutrophils # Seg Neutrophils # Man Lymphocytes # (Manual) Monocytes # (Manual) PT INR APTT Heparin Anti-Xa Level POC ABG pH POC ABG pCO2 51.2 H POC ABG pO2 Sodium Potassium Chloride Carbon Dioxide BUN Creatinine Glucose POC Glucose 139 H Lactic Acid Calcium Phosphorus Total Bilirubin AST ALT Total Creatine Kinase CK-MB (CK-2) Troponin T 0.816 H* Total Protein Albumin Prealbumin HDL Cholesterol Salicylates Acetaminophen Crossmatch 10/13/18 10/14/18 10/14/18 21:25 01:49 04:52 WBC RBC Hgb Hct MCV MCHC RDW Plt Count Lymph % (Auto) [place] % (Auto) [place] # Seg Neutrophils % Seg Neuts % (Manual) Lymphocytes % (Manual) Monocytes % (Manual) Seg Neutrophils # Seg Neutrophils # Man Lymphocytes # (Manual) Monocytes # (Manual) PT INR APTT Heparin Anti-Xa Level POC ABG pH POC ABG pCO2 56.0 H POC ABG pO2 Sodium Potassium Chloride Carbon Dioxide BUN Creatinine Glucose POC Glucose 205 H 166 H Lactic Acid Calcium Phosphorus Total Bilirubin AST ALT Total Creatine Kinase CK-MB (CK-2) Troponin T Total Protein Albumin Prealbumin HDL Cholesterol Salicylates Acetaminophen Crossmatch 10/14/18 10/14/18 10/14/18 05:32 09:45 09:45 WBC RBC Hgb 11.4 L Hct 34.5 L MCV MCHC RDW Plt Count 139 L Lymph % (Auto) [place] % (Auto) [place] # Seg Neutrophils % Seg Neuts % (Manual) Lymphocytes % (Manual) Monocytes % (Manual) Seg Neutrophils # Seg Neutrophils # Man Lymphocytes # (Manual) Monocytes # (Manual) PT INR APTT Heparin Anti-Xa Level POC ABG pH POC ABG pCO2 POC ABG pO2 Sodium 148 H Potassium Chloride 107.3 H Carbon Dioxide 34 H D BUN Creatinine 0.7 L D Glucose 191 H POC Glucose 164 H Lactic Acid Calcium 7.3 L Phosphorus Total Bilirubin AST 110 H ALT 91 H Total Creatine Kinase CK-MB (CK-2) Troponin T Total Protein 4.9 L Albumin 2.0 L Prealbumin HDL Cholesterol Salicylates Acetaminophen Crossmatch 10/14/18 10/14/18 10/14/18 10:54 12:20 18:30 WBC RBC Hgb Hct MCV MCHC RDW Plt Count Lymph % (Auto) [place] % (Auto) [place] # Seg Neutrophils % Seg Neuts % (Manual) Lymphocytes % (Manual) Monocytes % (Manual) Seg Neutrophils # Seg Neutrophils # Man Lymphocytes # (Manual) Monocytes # (Manual) PT INR APTT Heparin Anti-Xa Level POC ABG pH POC ABG pCO2 POC ABG pO2 Sodium Potassium Chloride Carbon Dioxide BUN Creatinine Glucose POC Glucose 173 H 158 H 108 H Lactic Acid Calcium Phosphorus Total Bilirubin AST ALT Total Creatine Kinase CK-MB (CK-2) Troponin T Total Protein Albumin Prealbumin HDL Cholesterol Salicylates Acetaminophen Crossmatch 10/14/18 10/15/18 10/15/18 21:54 02:12 04:19 WBC RBC Hgb Hct MCV MCHC RDW Plt Count Lymph % (Auto) [place] % (Auto) [place] # Seg Neutrophils % Seg Neuts % (Manual) Lymphocytes % (Manual) Monocytes % (Manual) Seg Neutrophils # Seg Neutrophils # Man Lymphocytes # (Manual) Monocytes # (Manual) PT INR APTT Heparin Anti-Xa Level POC ABG pH 7.491 H POC ABG pCO2 45.1 H POC ABG pO2 Sodium Potassium Chloride Carbon Dioxide BUN Creatinine Glucose POC Glucose 110 H 164 H Lactic Acid Calcium Phosphorus Total Bilirubin AST ALT Total Creatine Kinase CK-MB (CK-2) Troponin T Total Protein Albumin Prealbumin HDL Cholesterol Salicylates Acetaminophen Crossmatch 10/15/18 10/15/18 10/15/18 04:55 05:43 06:20 WBC RBC Hgb 11.7 L Hct 34.7 L MCV MCHC RDW Plt Count Lymph % (Auto) [place] % (Auto) [place] # Seg Neutrophils % Seg Neuts % (Manual) Lymphocytes % (Manual) Monocytes % (Manual) Seg Neutrophils # Seg Neutrophils # Man Lymphocytes # (Manual) Monocytes # (Manual) PT INR APTT Heparin Anti-Xa Level POC ABG pH POC ABG pCO2 47.3 H POC ABG pO2 78 L Sodium Potassium Chloride Carbon Dioxide BUN Creatinine Glucose POC Glucose 250 H Lactic Acid Calcium Phosphorus Total Bilirubin AST ALT Total Creatine Kinase CK-MB (CK-2) Troponin T Total Protein Albumin Prealbumin HDL Cholesterol Salicylates Acetaminophen Crossmatch 10/15/18 10/15/18 10/15/18 12:00 12:00 12:11 WBC RBC Hgb 11.5 L Hct 34.0 L MCV MCHC RDW Plt Count Lymph % (Auto) [place] % (Auto) [place] # Seg Neutrophils % Seg Neuts % (Manual) Lymphocytes % (Manual) Monocytes % (Manual) Seg Neutrophils # Seg Neutrophils # Man Lymphocytes # (Manual) Monocytes # (Manual) PT INR APTT Heparin Anti-Xa Level POC ABG pH POC ABG pCO2 POC ABG pO2 Sodium 147 H Potassium Chloride 108.5 H Carbon Dioxide BUN Creatinine 0.7 L Glucose 209 H POC Glucose 197 H Lactic Acid Calcium 7.3 L Phosphorus Total Bilirubin AST ALT Total Creatine Kinase CK-MB (CK-2) Troponin T Total Protein Albumin Prealbumin HDL Cholesterol Salicylates Acetaminophen Crossmatch 10/15/18 10/15/18 10/15/18 15:48 18:34 21:29 WBC RBC Hgb Hct MCV MCHC RDW Plt Count Lymph % (Auto) [place] % (Auto) [place] # Seg Neutrophils % Seg Neuts % (Manual) Lymphocytes % (Manual) Monocytes % (Manual) Seg Neutrophils # Seg Neutrophils # Man Lymphocytes # (Manual) Monocytes # (Manual) PT INR APTT Heparin Anti-Xa Level POC ABG pH POC ABG pCO2 POC ABG pO2 Sodium Potassium Chloride Carbon Dioxide BUN Creatinine Glucose POC Glucose 220 H 249 H 209 H Lactic Acid Calcium Phosphorus Total Bilirubin AST ALT Total Creatine Kinase CK-MB (CK-2) Troponin T Total Protein Albumin Prealbumin HDL Cholesterol Salicylates Acetaminophen Crossmatch 10/16/18 10/16/18 10/16/18 02:16 03:50 05:57 WBC RBC Hgb Hct MCV MCHC RDW Plt Count Lymph % (Auto) [place] % (Auto) [place] # Seg Neutrophils % Seg Neuts % (Manual) Lymphocytes % (Manual) Monocytes % (Manual) Seg Neutrophils # Seg Neutrophils # Man Lymphocytes # (Manual) Monocytes # (Manual) PT INR APTT Heparin Anti-Xa Level POC ABG pH POC ABG pCO2 55.8 H POC ABG pO2 Sodium Potassium Chloride Carbon Dioxide BUN Creatinine Glucose POC Glucose 110 H 209 H Lactic Acid Calcium Phosphorus Total Bilirubin AST ALT Total Creatine Kinase CK-MB (CK-2) Troponin T Total Protein Albumin Prealbumin HDL Cholesterol Salicylates Acetaminophen Crossmatch 10/16/18 10/16/18 10/16/18 10:51 12:51 15:01 WBC RBC Hgb Hct MCV MCHC RDW Plt Count Lymph % (Auto) [place] % (Auto) [place] # Seg Neutrophils % Seg Neuts % (Manual) Lymphocytes % (Manual) Monocytes % (Manual) Seg Neutrophils # Seg Neutrophils # Man Lymphocytes # (Manual) Monocytes # (Manual) PT INR APTT Heparin Anti-Xa Level POC ABG pH POC ABG pCO2 48.9 H POC ABG pO2 Sodium Potassium Chloride Carbon Dioxide BUN Creatinine Glucose POC Glucose 198 H 196 H Lactic Acid Calcium Phosphorus Total Bilirubin AST ALT Total Creatine Kinase CK-MB (CK-2) Troponin T Total Protein Albumin Prealbumin HDL Cholesterol Salicylates Acetaminophen Crossmatch 10/16/18 10/16/18 10/17/18 17:34 21:59 02:17 WBC RBC Hgb Hct MCV MCHC RDW Plt Count Lymph % (Auto) [place] % (Auto) [place] # Seg Neutrophils % Seg Neuts % (Manual) Lymphocytes % (Manual) Monocytes % (Manual) Seg Neutrophils # Seg Neutrophils # Man Lymphocytes # (Manual) Monocytes # (Manual) PT INR APTT Heparin Anti-Xa Level POC ABG pH POC ABG pCO2 POC ABG pO2 Sodium Potassium Chloride Carbon Dioxide BUN Creatinine Glucose POC Glucose 179 H 139 H 135 H Lactic Acid Calcium Phosphorus Total Bilirubin AST ALT Total Creatine Kinase CK-MB (CK-2) Troponin T Total Protein Albumin Prealbumin HDL Cholesterol Salicylates Acetaminophen Crossmatch 10/17/18 10/17/18 10/17/18 05:40 05:47 10:18 WBC RBC Hgb 11.3 L Hct 33.2 L MCV MCHC RDW Plt Count Lymph % (Auto) [place] % (Auto) [place] # Seg Neutrophils % Seg Neuts % (Manual) Lymphocytes % (Manual) Monocytes % (Manual) Seg Neutrophils # Seg Neutrophils # Man Lymphocytes # (Manual) Monocytes # (Manual) PT INR APTT Heparin Anti-Xa Level POC ABG pH POC ABG pCO2 POC ABG pO2 Sodium Potassium Chloride Carbon Dioxide BUN Creatinine Glucose POC Glucose 125 H 139 H Lactic Acid Calcium Phosphorus Total Bilirubin AST ALT Total Creatine Kinase CK-MB (CK-2) Troponin T Total Protein Albumin Prealbumin HDL Cholesterol Salicylates Acetaminophen Crossmatch 10/17/18 10/18/18 10/18/18 23:11 08:49 11:31 WBC RBC Hgb Hct MCV MCHC RDW Plt Count Lymph % (Auto) [place] % (Auto) [place] # Seg Neutrophils % Seg Neuts % (Manual) Lymphocytes % (Manual) Monocytes % (Manual) Seg Neutrophils # Seg Neutrophils # Man Lymphocytes # (Manual) Monocytes # (Manual) PT INR APTT Heparin Anti-Xa Level POC ABG pH POC ABG pCO2 POC ABG pO2 Sodium Potassium Chloride Carbon Dioxide BUN Creatinine Glucose POC Glucose 165 H 125 H 182 H Lactic Acid Calcium Phosphorus Total Bilirubin AST ALT Total Creatine Kinase CK-MB (CK-2) Troponin T Total Protein Albumin Prealbumin HDL Cholesterol Salicylates Acetaminophen Crossmatch 10/18/18 10/18/18 10/19/18 16:12 21:02 00:28 WBC RBC Hgb 11.4 L Hct 33.6 L MCV MCHC RDW Plt Count Lymph % (Auto) [place] % (Auto) 14.0 H [place] # 1.2 H Seg Neutrophils % Seg Neuts % (Manual) Lymphocytes % (Manual) Monocytes % (Manual) Seg Neutrophils # Seg Neutrophils # Man Lymphocytes # (Manual) Monocytes # (Manual) PT INR APTT Heparin Anti-Xa Level POC ABG pH POC ABG pCO2 POC ABG pO2 Sodium Potassium Chloride Carbon Dioxide BUN Creatinine Glucose POC Glucose 168 H 324 H Lactic Acid Calcium Phosphorus Total Bilirubin AST ALT Total Creatine Kinase CK-MB (CK-2) Troponin T Total Protein Albumin Prealbumin HDL Cholesterol Salicylates Acetaminophen Crossmatch 10/19/18 10/19/18 10/19/18 04:57 04:57 07:32 WBC RBC Hgb 11.7 L Hct 34.0 L MCV MCHC RDW Plt Count Lymph % (Auto) [place] % (Auto) [place] # Seg Neutrophils % Seg Neuts % (Manual) Lymphocytes % (Manual) Monocytes % (Manual) Seg Neutrophils # Seg Neutrophils # Man Lymphocytes # (Manual) Monocytes # (Manual) PT INR APTT Heparin Anti-Xa Level POC ABG pH POC ABG pCO2 POC ABG pO2 Sodium Potassium 3.5 L Chloride 108.6 H Carbon Dioxide BUN Creatinine 0.6 L Glucose POC Glucose 159 H Lactic Acid Calcium 7.9 L Phosphorus Total Bilirubin AST ALT Total Creatine Kinase CK-MB (CK-2) Troponin T Total Protein Albumin Prealbumin HDL Cholesterol Salicylates Acetaminophen Crossmatch 10/19/18 10/19/18 10/20/18 16:25 20:59 12:04 WBC RBC Hgb Hct MCV MCHC RDW Plt Count Lymph % (Auto) [place] % (Auto) [place] # Seg Neutrophils % Seg Neuts % (Manual) Lymphocytes % (Manual) Monocytes % (Manual) Seg Neutrophils # Seg Neutrophils # Man Lymphocytes # (Manual) Monocytes # (Manual) PT INR APTT Heparin Anti-Xa Level POC ABG pH POC ABG pCO2 POC ABG pO2 Sodium Potassium Chloride Carbon Dioxide BUN Creatinine Glucose POC Glucose 134 H 110 H 338 H Lactic Acid Calcium Phosphorus Total Bilirubin AST ALT Total Creatine Kinase CK-MB (CK-2) Troponin T Total Protein Albumin Prealbumin HDL Cholesterol Salicylates Acetaminophen Crossmatch 10/20/18 10/20/18 10/21/18 17:55 22:07 04:59 WBC RBC Hgb 11.6 L Hct 33.9 L MCV MCHC RDW Plt Count Lymph % (Auto) [place] % (Auto) 9.7 H [place] # 0.9 H Seg Neutrophils % 70.7 H Seg Neuts % (Manual) Lymphocytes % (Manual) Monocytes % (Manual) Seg Neutrophils # Seg Neutrophils # Man Lymphocytes # (Manual) Monocytes # (Manual) PT INR APTT Heparin Anti-Xa Level POC ABG pH POC ABG pCO2 POC ABG pO2 Sodium Potassium Chloride Carbon Dioxide BUN Creatinine Glucose POC Glucose 146 H 164 H Lactic Acid Calcium Phosphorus Total Bilirubin AST ALT Total Creatine Kinase CK-MB (CK-2) Troponin T Total Protein Albumin Prealbumin HDL Cholesterol Salicylates Acetaminophen Crossmatch 10/21/18 10/21/18 10/21/18 04:59 07:52 11:39 WBC RBC Hgb Hct MCV MCHC RDW Plt Count Lymph % (Auto) [place] % (Auto) [place] # Seg Neutrophils % Seg Neuts % (Manual) Lymphocytes % (Manual) Monocytes % (Manual) Seg Neutrophils # Seg Neutrophils # Man Lymphocytes # (Manual) Monocytes # (Manual) PT INR APTT Heparin Anti-Xa Level POC ABG pH POC ABG pCO2 POC ABG pO2 Sodium Potassium 3.5 L Chloride 107.1 H Carbon Dioxide BUN Creatinine 0.5 L Glucose 158 H POC Glucose 142 H 194 H Lactic Acid Calcium 7.5 L Phosphorus Total Bilirubin AST ALT Total Creatine Kinase CK-MB (CK-2) Troponin T Total Protein 5.6 L Albumin 2.0 L Prealbumin HDL Cholesterol Salicylates Acetaminophen Crossmatch 10/21/18 10/21/18 10/22/18 17:05 20:37 05:38 WBC RBC 3.48 L Hgb 10.8 L Hct 31.7 L MCV MCHC RDW Plt Count 458 H Lymph % (Auto) [place] % (Auto) 10.5 H [place] # Seg Neutrophils % Seg Neuts % (Manual) Lymphocytes % (Manual) Monocytes % (Manual) Seg Neutrophils # Seg Neutrophils # Man Lymphocytes # (Manual) Monocytes # (Manual) PT INR APTT Heparin Anti-Xa Level POC ABG pH POC ABG pCO2 POC ABG pO2 Sodium Potassium Chloride Carbon Dioxide BUN Creatinine Glucose POC Glucose 167 H 182 H Lactic Acid Calcium Phosphorus Total Bilirubin AST ALT Total Creatine Kinase CK-MB (CK-2) Troponin T Total Protein Albumin Prealbumin HDL Cholesterol Salicylates Acetaminophen Crossmatch 10/22/18 10/22/18 10/22/18 05:38 07:48 12:08 WBC RBC Hgb Hct MCV MCHC RDW Plt Count Lymph % (Auto) [place] % (Auto) [place] # Seg Neutrophils % Seg Neuts % (Manual) Lymphocytes % (Manual) Monocytes % (Manual) Seg Neutrophils # Seg Neutrophils # Man Lymphocytes # (Manual) Monocytes # (Manual) PT INR APTT Heparin Anti-Xa Level POC ABG pH POC ABG pCO2 POC ABG pO2 Sodium Potassium Chloride Carbon Dioxide BUN Creatinine 0.5 L Glucose 146 H POC Glucose 130 H 167 H Lactic Acid Calcium 7.8 L Phosphorus Total Bilirubin AST 41 H ALT Total Creatine Kinase CK-MB (CK-2) Troponin T Total Protein 5.5 L Albumin 2.1 L Prealbumin HDL Cholesterol Salicylates Acetaminophen Crossmatch 10/22/18 10/22/18 10/23/18 16:45 21:42 04:38 WBC RBC Hgb 11.7 L Hct 34.7 L MCV MCHC RDW Plt Count 523 H Lymph % (Auto) [place] % (Auto) 8.7 H [place] # Seg Neutrophils % 71.6 H Seg Neuts % (Manual) Lymphocytes % (Manual) Monocytes % (Manual) Seg Neutrophils # Seg Neutrophils # Man Lymphocytes # (Manual) Monocytes # (Manual) PT INR APTT Heparin Anti-Xa Level POC ABG pH POC ABG pCO2 POC ABG pO2 Sodium Potassium Chloride Carbon Dioxide BUN Creatinine Glucose POC Glucose 113 H 134 H Lactic Acid Calcium Phosphorus Total Bilirubin AST ALT Total Creatine Kinase CK-MB (CK-2) Troponin T Total Protein Albumin Prealbumin HDL Cholesterol Salicylates Acetaminophen Crossmatch 10/23/18 10/23/18 10/23/18 04:38 07:56 11:15 WBC RBC Hgb Hct MCV MCHC RDW Plt Count Lymph % (Auto) [place] % (Auto) [place] # Seg Neutrophils % Seg Neuts % (Manual) Lymphocytes % (Manual) Monocytes % (Manual) Seg Neutrophils # Seg Neutrophils # Man Lymphocytes # (Manual) Monocytes # (Manual) PT INR APTT Heparin Anti-Xa Level POC ABG pH POC ABG pCO2 POC ABG pO2 Sodium Potassium Chloride Carbon Dioxide BUN 7 L Creatinine 0.5 L Glucose 150 H POC Glucose 123 H 212 H Lactic Acid Calcium 8.0 L Phosphorus Total Bilirubin AST 55 H ALT Total Creatine Kinase CK-MB (CK-2) Troponin T Total Protein 6.2 L Albumin 2.3 L Prealbumin HDL Cholesterol Salicylates Acetaminophen Crossmatch 10/23/18 10/23/18 10/24/18 16:06 22:01 05:56 WBC 11.8 H RBC 3.64 L Hgb 11.2 L Hct 33.4 L MCV MCHC RDW Plt Count 564 H Lymph % (Auto) 11.3 L [place] % (Auto) [place] # Seg Neutrophils % 80.2 H Seg Neuts % (Manual) Lymphocytes % (Manual) Monocytes % (Manual) Seg Neutrophils # 9.4 H Seg Neutrophils # Man Lymphocytes # (Manual) Monocytes # (Manual) PT INR APTT Heparin Anti-Xa Level POC ABG pH POC ABG pCO2 POC ABG pO2 Sodium Potassium Chloride Carbon Dioxide BUN Creatinine Glucose POC Glucose 152 H 235 H Lactic Acid Calcium Phosphorus Total Bilirubin AST ALT Total Creatine Kinase CK-MB (CK-2) Troponin T Total Protein Albumin Prealbumin HDL Cholesterol Salicylates Acetaminophen Crossmatch 10/24/18 10/24/18 10/24/18 05:56 07:52 11:58 WBC RBC Hgb Hct MCV MCHC RDW Plt Count Lymph % (Auto) [place] % (Auto) [place] # Seg Neutrophils % Seg Neuts % (Manual) Lymphocytes % (Manual) Monocytes % (Manual) Seg Neutrophils # Seg Neutrophils # Man Lymphocytes # (Manual) Monocytes # (Manual) PT INR APTT Heparin Anti-Xa Level POC ABG pH POC ABG pCO2 POC ABG pO2 Sodium Potassium Chloride Carbon Dioxide BUN Creatinine 0.5 L Glucose 175 H POC Glucose 156 H 238 H Lactic Acid Calcium 8.0 L Phosphorus Total Bilirubin AST 44 H ALT Total Creatine Kinase CK-MB (CK-2) Troponin T Total Protein 6.2 L Albumin 2.4 L Prealbumin HDL Cholesterol Salicylates Acetaminophen Crossmatch 10/24/18 10/24/18 10/25/18 16:20 22:13 07:53 WBC RBC Hgb Hct MCV MCHC RDW Plt Count Lymph % (Auto) [place] % (Auto) [place] # Seg Neutrophils % Seg Neuts % (Manual) Lymphocytes % (Manual) Monocytes % (Manual) Seg Neutrophils # Seg Neutrophils # Man Lymphocytes # (Manual) Monocytes # (Manual) PT INR APTT Heparin Anti-Xa Level POC ABG pH POC ABG pCO2 POC ABG pO2 Sodium Potassium Chloride Carbon Dioxide BUN Creatinine Glucose POC Glucose 60 L 261 H 211 H Lactic Acid Calcium Phosphorus Total Bilirubin AST ALT Total Creatine Kinase CK-MB (CK-2) Troponin T Total Protein Albumin Prealbumin HDL Cholesterol Salicylates Acetaminophen Crossmatch 10/25/18 10/25/18 10/25/18 11:03 16:02 22:45 WBC RBC Hgb Hct MCV MCHC RDW Plt Count Lymph % (Auto) [place] % (Auto) [place] # Seg Neutrophils % Seg Neuts % (Manual) Lymphocytes % (Manual) Monocytes % (Manual) Seg Neutrophils # Seg Neutrophils # Man Lymphocytes # (Manual) Monocytes # (Manual) PT INR APTT Heparin Anti-Xa Level POC ABG pH POC ABG pCO2 POC ABG pO2 Sodium Potassium Chloride Carbon Dioxide BUN Creatinine Glucose POC Glucose 137 H 186 H 140 H Lactic Acid Calcium Phosphorus Total Bilirubin AST ALT Total Creatine Kinase CK-MB (CK-2) Troponin T Total Protein Albumin Prealbumin HDL Cholesterol Salicylates Acetaminophen Crossmatch 10/26/18 10/26/18 10/26/18 08:13 10:08 11:28 WBC RBC Hgb Hct MCV MCHC RDW Plt Count Lymph % (Auto) [place] % (Auto) [place] # Seg Neutrophils % Seg Neuts % (Manual) Lymphocytes % (Manual) Monocytes % (Manual) Seg Neutrophils # Seg Neutrophils # Man Lymphocytes # (Manual) Monocytes # (Manual) PT INR APTT Heparin Anti-Xa Level POC ABG pH POC ABG pCO2 POC ABG pO2 Sodium Potassium Chloride Carbon Dioxide BUN Creatinine Glucose POC Glucose 144 H 110 H 201 H Lactic Acid Calcium Phosphorus Total Bilirubin AST ALT Total Creatine Kinase CK-MB (CK-2) Troponin T Total Protein Albumin Prealbumin HDL Cholesterol Salicylates Acetaminophen Crossmatch 10/26/18 10/26/18 10/27/18 16:36 22:29 07:34 WBC RBC Hgb Hct MCV MCHC RDW Plt Count Lymph % (Auto) [place] % (Auto) [place] # Seg Neutrophils % Seg Neuts % (Manual) Lymphocytes % (Manual) Monocytes % (Manual) Seg Neutrophils # Seg Neutrophils # Man Lymphocytes # (Manual) Monocytes # (Manual) PT INR APTT Heparin Anti-Xa Level POC ABG pH POC ABG pCO2 POC ABG pO2 Sodium Potassium Chloride Carbon Dioxide BUN Creatinine Glucose POC Glucose 147 H 302 H 182 H Lactic Acid Calcium Phosphorus Total Bilirubin AST ALT Total Creatine Kinase CK-MB (CK-2) Troponin T Total Protein Albumin Prealbumin HDL Cholesterol Salicylates Acetaminophen Crossmatch 10/27/18 10/27/18 10/27/18 11:57 13:33 14:55 WBC RBC Hgb Hct MCV MCHC RDW Plt Count 550 H Lymph % (Auto) [place] % (Auto) [place] # Seg Neutrophils % Seg Neuts % (Manual) Lymphocytes % (Manual) Monocytes % (Manual) Seg Neutrophils # Seg Neutrophils # Man Lymphocytes # (Manual) Monocytes # (Manual) PT INR APTT Heparin Anti-Xa Level POC ABG pH POC ABG pCO2 POC ABG pO2 Sodium Potassium Chloride Carbon Dioxide BUN Creatinine Glucose POC Glucose 209 H Lactic Acid Calcium Phosphorus Total Bilirubin AST ALT Total Creatine Kinase CK-MB (CK-2) Troponin T Total Protein Albumin Prealbumin HDL Cholesterol Salicylates Acetaminophen Crossmatch See Detail 10/27/18 10/27/18 10/28/18 17:09 21:45 07:45 WBC RBC Hgb Hct MCV MCHC RDW Plt Count Lymph % (Auto) [place] % (Auto) [place] # Seg Neutrophils % Seg Neuts % (Manual) Lymphocytes % (Manual) Monocytes % (Manual) Seg Neutrophils # Seg Neutrophils # Man Lymphocytes # (Manual) Monocytes # (Manual) PT INR APTT Heparin Anti-Xa Level POC ABG pH POC ABG pCO2 POC ABG pO2 Sodium Potassium Chloride Carbon Dioxide BUN Creatinine Glucose POC Glucose 233 H 136 H 201 H Lactic Acid Calcium Phosphorus Total Bilirubin AST ALT Total Creatine Kinase CK-MB (CK-2) Troponin T Total Protein Albumin Prealbumin HDL Cholesterol Salicylates Acetaminophen Crossmatch 10/28/18 10/28/18 10/28/18 11:17 16:34 19:51 WBC RBC Hgb Hct MCV MCHC RDW Plt Count Lymph % (Auto) [place] % (Auto) [place] # Seg Neutrophils % Seg Neuts % (Manual) Lymphocytes % (Manual) Monocytes % (Manual) Seg Neutrophils # Seg Neutrophils # Man Lymphocytes # (Manual) Monocytes # (Manual) PT INR APTT Heparin Anti-Xa Level < 0.10 L POC ABG pH POC ABG pCO2 POC ABG pO2 Sodium Potassium Chloride Carbon Dioxide BUN Creatinine Glucose POC Glucose 116 H 168 H Lactic Acid Calcium Phosphorus Total Bilirubin AST ALT Total Creatine Kinase CK-MB (CK-2) Troponin T Total Protein Albumin Prealbumin HDL Cholesterol Salicylates Acetaminophen Crossmatch 10/28/18 10/29/18 10/29/18 21:52 07:11 07:11 WBC RBC Hgb Hct MCV MCHC RDW Plt Count 470 H Lymph % (Auto) [place] % (Auto) [place] # Seg Neutrophils % Seg Neuts % (Manual) Lymphocytes % (Manual) Monocytes % (Manual) Seg Neutrophils # Seg Neutrophils # Man Lymphocytes # (Manual) Monocytes # (Manual) PT INR APTT Heparin Anti-Xa Level 0.13 L POC ABG pH POC ABG pCO2 POC ABG pO2 Sodium Potassium Chloride Carbon Dioxide BUN Creatinine Glucose POC Glucose 159 H Lactic Acid Calcium Phosphorus Total Bilirubin AST ALT Total Creatine Kinase CK-MB (CK-2) Troponin T Total Protein Albumin Prealbumin HDL Cholesterol Salicylates Acetaminophen Crossmatch 10/29/18 10/29/18 10/29/18 07:11 07:43 11:29 WBC RBC Hgb Hct MCV MCHC RDW Plt Count Lymph % (Auto) [place] % (Auto) [place] # Seg Neutrophils % Seg Neuts % (Manual) Lymphocytes % (Manual) Monocytes % (Manual) Seg Neutrophils # Seg Neutrophils # Man Lymphocytes # (Manual) Monocytes # (Manual) PT INR APTT Heparin Anti-Xa Level POC ABG pH POC ABG pCO2 POC ABG pO2 Sodium Potassium Chloride Carbon Dioxide BUN 7 L Creatinine 0.5 L Glucose 122 H POC Glucose 147 H 165 H Lactic Acid Calcium 8.2 L Phosphorus Total Bilirubin AST ALT Total Creatine Kinase CK-MB (CK-2) Troponin T Total Protein Albumin Prealbumin HDL Cholesterol Salicylates Acetaminophen Crossmatch 10/29/18 10/29/18 10/30/18 19:50 22:11 00:11 WBC RBC Hgb Hct MCV MCHC RDW Plt Count Lymph % (Auto) [place] % (Auto) [place] # Seg Neutrophils % Seg Neuts % (Manual) Lymphocytes % (Manual) Monocytes % (Manual) Seg Neutrophils # Seg Neutrophils # Man Lymphocytes # (Manual) Monocytes # (Manual) PT INR APTT Heparin Anti-Xa Level 0.25 L POC ABG pH POC ABG pCO2 POC ABG pO2 Sodium Potassium Chloride Carbon Dioxide BUN Creatinine Glucose POC Glucose 166 H 173 H Lactic Acid Calcium Phosphorus Total Bilirubin AST ALT Total Creatine Kinase CK-MB (CK-2) Troponin T Total Protein Albumin Prealbumin HDL Cholesterol Salicylates Acetaminophen Crossmatch 10/30/18 10/30/18 10/30/18 04:22 04:22 07:47 WBC 27.0 H RBC 3.16 L Hgb 10.0 L Hct 28.8 L D MCV MCHC 35 H RDW Plt Count Lymph % (Auto) [place] % (Auto) [place] # Seg Neutrophils % Seg Neuts % (Manual) Lymphocytes % (Manual) 1.5 L Monocytes % (Manual) Seg Neutrophils # Seg Neutrophils # Man 18.6 H Lymphocytes # (Manual) 0.4 L Monocytes # (Manual) PT INR APTT Heparin Anti-Xa Level POC ABG pH POC ABG pCO2 POC ABG pO2 Sodium Potassium Chloride Carbon Dioxide BUN Creatinine Glucose 224 H POC Glucose 168 H Lactic Acid Calcium 7.5 L Phosphorus Total Bilirubin AST ALT Total Creatine Kinase CK-MB (CK-2) Troponin T Total Protein Albumin Prealbumin HDL Cholesterol Salicylates Acetaminophen Crossmatch 10/30/18 10/30/18 10/30/18 07:55 11:20 16:41 WBC RBC Hgb Hct MCV MCHC RDW Plt Count Lymph % (Auto) [place] % (Auto) [place] # Seg Neutrophils % Seg Neuts % (Manual) Lymphocytes % (Manual) Monocytes % (Manual) Seg Neutrophils # Seg Neutrophils # Man Lymphocytes # (Manual) Monocytes # (Manual) PT INR APTT Heparin Anti-Xa Level < 0.10 L POC ABG pH POC ABG pCO2 POC ABG pO2 Sodium Potassium Chloride Carbon Dioxide BUN Creatinine Glucose POC Glucose 165 H 142 H Lactic Acid Calcium Phosphorus Total Bilirubin AST ALT Total Creatine Kinase CK-MB (CK-2) Troponin T Total Protein Albumin Prealbumin HDL Cholesterol Salicylates Acetaminophen Crossmatch 10/30/18 10/30/18 10/31/18 20:51 21:20 05:21 WBC RBC Hgb 9.0 L Hct 26.6 L MCV MCHC RDW Plt Count Lymph % (Auto) [place] % (Auto) [place] # Seg Neutrophils % Seg Neuts % (Manual) Lymphocytes % (Manual) Monocytes % (Manual) Seg Neutrophils # Seg Neutrophils # Man Lymphocytes # (Manual) Monocytes # (Manual) PT INR APTT Heparin Anti-Xa Level < 0.10 L POC ABG pH POC ABG pCO2 POC ABG pO2 Sodium Potassium Chloride Carbon Dioxide BUN Creatinine Glucose POC Glucose 136 H Lactic Acid Calcium Phosphorus Total Bilirubin AST ALT Total Creatine Kinase CK-MB (CK-2) Troponin T Total Protein Albumin Prealbumin HDL Cholesterol Salicylates Acetaminophen Crossmatch 10/31/18 10/31/18 10/31/18 08:07 10:19 12:12 WBC RBC Hgb Hct MCV MCHC RDW Plt Count Lymph % (Auto) [place] % (Auto) [place] # Seg Neutrophils % Seg Neuts % (Manual) Lymphocytes % (Manual) Monocytes % (Manual) Seg Neutrophils # Seg Neutrophils # Man Lymphocytes # (Manual) Monocytes # (Manual) PT INR APTT Heparin Anti-Xa Level POC ABG pH POC ABG pCO2 POC ABG pO2 Sodium Potassium Chloride Carbon Dioxide BUN Creatinine Glucose POC Glucose 155 H 194 H Lactic Acid Calcium Phosphorus Total Bilirubin AST ALT Total Creatine Kinase CK-MB (CK-2) Troponin T Total Protein Albumin Prealbumin HDL Cholesterol Salicylates Acetaminophen Crossmatch See Detail 10/31/18 10/31/18 10/31/18 16:07 16:56 21:14 WBC RBC Hgb Hct MCV MCHC RDW Plt Count Lymph % (Auto) [place] % (Auto) [place] # Seg Neutrophils % Seg Neuts % (Manual) Lymphocytes % (Manual) Monocytes % (Manual) Seg Neutrophils # Seg Neutrophils # Man Lymphocytes # (Manual) Monocytes # (Manual) PT INR APTT Heparin Anti-Xa Level 1.20 H POC ABG pH POC ABG pCO2 POC ABG pO2 Sodium Potassium Chloride Carbon Dioxide BUN Creatinine Glucose POC Glucose 354 H 234 H Lactic Acid Calcium Phosphorus Total Bilirubin AST ALT Total Creatine Kinase CK-MB (CK-2) Troponin T Total Protein Albumin Prealbumin HDL Cholesterol Salicylates Acetaminophen Crossmatch 11/01/18 11/01/18 11/01/18 00:52 05:52 05:52 WBC 12.5 H RBC 2.95 L Hgb 9.1 L Hct 27.4 L MCV MCHC RDW 15.3 H Plt Count Lymph % (Auto) [place] % (Auto) [place] # Seg Neutrophils % Seg Neuts % (Manual) Lymphocytes % (Manual) Monocytes % (Manual) Seg Neutrophils # Seg Neutrophils # Man Lymphocytes # (Manual) Monocytes # (Manual) PT INR APTT Heparin Anti-Xa Level 1.53 H POC ABG pH POC ABG pCO2 POC ABG pO2 Sodium Potassium Chloride Carbon Dioxide BUN Creatinine 0.5 L Glucose 169 H POC Glucose Lactic Acid Calcium 8.3 L Phosphorus Total Bilirubin AST ALT Total Creatine Kinase CK-MB (CK-2) Troponin T Total Protein 6.2 L Albumin 2.3 L Prealbumin HDL Cholesterol Salicylates Acetaminophen Crossmatch 11/01/18 11/01/18 11/01/18 08:17 10:57 11:38 WBC RBC Hgb Hct MCV MCHC RDW Plt Count Lymph % (Auto) [place] % (Auto) [place] # Seg Neutrophils % Seg Neuts % (Manual) Lymphocytes % (Manual) Monocytes % (Manual) Seg Neutrophils # Seg Neutrophils # Man Lymphocytes # (Manual) Monocytes # (Manual) PT INR APTT Heparin Anti-Xa Level 1.05 H POC ABG pH POC ABG pCO2 POC ABG pO2 Sodium Potassium Chloride Carbon Dioxide BUN Creatinine Glucose POC Glucose 158 H 133 H Lactic Acid Calcium Phosphorus Total Bilirubin AST ALT Total Creatine Kinase CK-MB (CK-2) Troponin T Total Protein Albumin Prealbumin HDL Cholesterol Salicylates Acetaminophen Crossmatch 11/01/18 11/01/18 11/02/18 17:08 21:23 04:56 WBC RBC 3.02 L Hgb 9.5 L Hct 28.0 L MCV MCHC RDW Plt Count Lymph % (Auto) [place] % (Auto) [place] # Seg Neutrophils % Seg Neuts % (Manual) Lymphocytes % (Manual) Monocytes % (Manual) Seg Neutrophils # Seg Neutrophils # Man Lymphocytes # (Manual) Monocytes # (Manual) PT INR APTT Heparin Anti-Xa Level POC ABG pH POC ABG pCO2 POC ABG pO2 Sodium Potassium Chloride Carbon Dioxide BUN Creatinine Glucose POC Glucose 156 H 213 H Lactic Acid Calcium Phosphorus Total Bilirubin AST ALT Total Creatine Kinase CK-MB (CK-2) Troponin T Total Protein Albumin Prealbumin HDL Cholesterol Salicylates Acetaminophen Crossmatch 11/02/18 11/02/18 11/02/18 04:56 08:38 11:23 WBC RBC Hgb Hct MCV MCHC RDW Plt Count Lymph % (Auto) [place] % (Auto) [place] # Seg Neutrophils % Seg Neuts % (Manual) Lymphocytes % (Manual) Monocytes % (Manual) Seg Neutrophils # Seg Neutrophils # Man Lymphocytes # (Manual) Monocytes # (Manual) PT INR APTT Heparin Anti-Xa Level POC ABG pH POC ABG pCO2 POC ABG pO2 Sodium Potassium Chloride Carbon Dioxide BUN Creatinine 0.5 L Glucose 141 H POC Glucose 173 H 272 H Lactic Acid Calcium 8.2 L Phosphorus Total Bilirubin AST 43 H ALT Total Creatine Kinase CK-MB (CK-2) Troponin T Total Protein 6.1 L Albumin 2.2 L Prealbumin HDL Cholesterol Salicylates Acetaminophen Crossmatch 11/02/18 11/03/18 11/03/18 22:16 04:38 04:38 WBC 11.6 H RBC 3.20 L Hgb 9.8 L Hct 29.2 L MCV MCHC RDW Plt Count Lymph % (Auto) [place] % (Auto) [place] # Seg Neutrophils % Seg Neuts % (Manual) Lymphocytes % (Manual) Monocytes % (Manual) Seg Neutrophils # Seg Neutrophils # Man Lymphocytes # (Manual) Monocytes # (Manual) PT INR APTT Heparin Anti-Xa Level POC ABG pH POC ABG pCO2 POC ABG pO2 Sodium 135 L Potassium Chloride Carbon Dioxide BUN Creatinine 0.5 L Glucose 160 H POC Glucose 182 H Lactic Acid Calcium Phosphorus Total Bilirubin AST 46 H ALT Total Creatine Kinase CK-MB (CK-2) Troponin T Total Protein Albumin 2.3 L Prealbumin HDL Cholesterol Salicylates Acetaminophen Crossmatch 11/03/18 11/03/18 11/03/18 07:52 10:59 18:10 WBC RBC Hgb Hct MCV MCHC RDW Plt Count Lymph % (Auto) [place] % (Auto) H[place]man # Seg Neutrophils % Seg Neuts % (Manual) Lymphocytes % (Manual) Monocytes % (Manual) Seg Neutrophils # Seg Neutrophils # Man Lymphocytes # (Manual) Monocytes # (Manual) PT INR APTT Heparin Anti-Xa Level POC ABG pH POC ABG pCO2 POC ABG pO2 Sodium Potassium Chloride Carbon Dioxide BUN Creatinine Glucose POC Glucose 180 H 159 H 169 H Lactic Acid Calcium Phosphorus Total Bilirubin AST ALT Total Creatine Kinase CK-MB (CK-2) Troponin T Total Protein Albumin Prealbumin HDL Cholesterol Salicylates Acetaminophen Crossmatch 11/04/18 11/04/18 11/04/18 07:46 11:42 15:45 WBC 11.5 H RBC 3.41 L Hgb 10.4 L Hct 30.8 L MCV MCHC RDW Plt Count Lymph % (Auto) [place] % (Auto) [place] # Seg Neutrophils % Seg Neuts % (Manual) Lymphocytes % (Manual) Monocytes % (Manual) Seg Neutrophils # Seg Neutrophils # Man Lymphocytes # (Manual) Monocytes # (Manual) PT INR APTT Heparin Anti-Xa Level POC ABG pH POC ABG pCO2 POC ABG pO2 Sodium Potassium Chloride Carbon Dioxide BUN Creatinine Glucose POC Glucose 160 H 149 H Lactic Acid Calcium Phosphorus Total Bilirubin AST ALT Total Creatine Kinase CK-MB (CK-2) Troponin T Total Protein Albumin Prealbumin HDL Cholesterol Salicylates Acetaminophen Crossmatch 11/04/18 11/04/18 11/04/18 15:45 15:45 16:41 WBC RBC Hgb Hct MCV MCHC RDW Plt Count Lymph % (Auto) [place] % (Auto) [place] # Seg Neutrophils % Seg Neuts % (Manual) Lymphocytes % (Manual) Monocytes % (Manual) Seg Neutrophils # Seg Neutrophils # Man Lymphocytes # (Manual) Monocytes # (Manual) PT INR APTT Heparin Anti-Xa Level POC ABG pH POC ABG pCO2 POC ABG pO2 Sodium 133 L Potassium Chloride 95.6 L Carbon Dioxide BUN Creatinine 0.5 L Glucose 163 H POC Glucose 157 H Lactic Acid Calcium Phosphorus Total Bilirubin AST ALT Total Creatine Kinase CK-MB (CK-2) Troponin T Total Protein Albumin 2.6 L Prealbumin 0.073 L HDL Cholesterol Salicylates Acetaminophen Crossmatch 11/04/18 11/05/18 11/05/18 21:59 08:51 12:13 WBC RBC Hgb Hct MCV MCHC RDW Plt Count Lymph % (Auto) [place] % (Auto) [place] # Seg Neutrophils % Seg Neuts % (Manual) Lymphocytes % (Manual) Monocytes % (Manual) Seg Neutrophils # Seg Neutrophils # Man Lymphocytes # (Manual) Monocytes # (Manual) PT INR APTT Heparin Anti-Xa Level POC ABG pH POC ABG pCO2 POC ABG pO2 Sodium Potassium Chloride Carbon Dioxide BUN Creatinine Glucose POC Glucose 195 H 187 H 149 H Lactic Acid Calcium Phosphorus Total Bilirubin AST ALT Total Creatine Kinase CK-MB (CK-2) Troponin T Total Protein Albumin Prealbumin HDL Cholesterol Salicylates Acetaminophen Crossmatch 11/05/18 11/05/18 11/06/18 17:15 20:37 07:00 WBC RBC 3.48 L Hgb 11.2 L Hct 31.8 L MCV MCHC 35 H RDW Plt Count Lymph % (Auto) [place] % (Auto) [place] # Seg Neutrophils % Seg Neuts % (Manual) Lymphocytes % (Manual) Monocytes % (Manual) Seg Neutrophils # Seg Neutrophils # Man Lymphocytes # (Manual) Monocytes # (Manual) PT INR APTT Heparin Anti-Xa Level POC ABG pH POC ABG pCO2 POC ABG pO2 Sodium Potassium Chloride Carbon Dioxide BUN Creatinine Glucose POC Glucose 281 H 203 H Lactic Acid Calcium Phosphorus Total Bilirubin AST ALT Total Creatine Kinase CK-MB (CK-2) Troponin T Total Protein Albumin Prealbumin HDL Cholesterol Salicylates Acetaminophen Crossmatch 11/06/18 11/06/18 11/06/18 07:00 07:31 12:45 WBC RBC Hgb Hct MCV MCHC RDW Plt Count Lymph % (Auto) [place] % (Auto) [place] # Seg Neutrophils % Seg Neuts % (Manual) Lymphocytes % (Manual) Monocytes % (Manual) Seg Neutrophils # Seg Neutrophils # Man Lymphocytes # (Manual) Monocytes # (Manual) PT INR APTT Heparin Anti-Xa Level POC ABG pH POC ABG pCO2 POC ABG pO2 Sodium 135 L Potassium Chloride 97.3 L Carbon Dioxide BUN Creatinine 0.5 L Glucose 163 H POC Glucose 215 H 183 H Lactic Acid Calcium Phosphorus Total Bilirubin AST ALT Total Creatine Kinase CK-MB (CK-2) Troponin T Total Protein Albumin Prealbumin HDL Cholesterol Salicylates Acetaminophen Crossmatch 11/06/18 11/06/18 11/07/18 17:47 21:05 07:42 WBC RBC Hgb Hct MCV MCHC RDW Plt Count Lymph % (Auto) [place] % (Auto) [place] # Seg Neutrophils % Seg Neuts % (Manual) Lymphocytes % (Manual) Monocytes % (Manual) Seg Neutrophils # Seg Neutrophils # Man Lymphocytes # (Manual) Monocytes # (Manual) PT INR APTT Heparin Anti-Xa Level POC ABG pH POC ABG pCO2 POC ABG pO2 Sodium Potassium Chloride Carbon Dioxide BUN Creatinine Glucose POC Glucose 141 H 223 H 168 H Lactic Acid Calcium Phosphorus Total Bilirubin AST ALT Total Creatine Kinase CK-MB (CK-2) Troponin T Total Protein Albumin Prealbumin HDL Cholesterol Salicylates Acetaminophen Crossmatch 11/07/18 11/07/18 11/07/18 11:37 16:21 21:39 WBC RBC Hgb Hct MCV MCHC RDW Plt Count Lymph % (Auto) [place] % (Auto) [place] # Seg Neutrophils % Seg Neuts % (Manual) Lymphocytes % (Manual) Monocytes % (Manual) Seg Neutrophils # Seg Neutrophils # Man Lymphocytes # (Manual) Monocytes # (Manual) PT INR APTT Heparin Anti-Xa Level POC ABG pH POC ABG pCO2 POC ABG pO2 Sodium Potassium Chloride Carbon Dioxide BUN Creatinine Glucose POC Glucose 120 H 169 H 127 H Lactic Acid Calcium Phosphorus Total Bilirubin AST ALT Total Creatine Kinase CK-MB (CK-2) Troponin T Total Protein Albumin Prealbumin HDL Cholesterol Salicylates Acetaminophen Crossmatch 11/08/18 11/08/18 11/08/18 11:48 16:32 16:32 WBC 11.3 H RBC 3.40 L Hgb 10.3 L Hct 30.5 L MCV MCHC RDW Plt Count 465 H Lymph % (Auto) [place] % (Auto) 9.3 H [place] # 1.0 H Seg Neutrophils % 73.1 H Seg Neuts % (Manual) Lymphocytes % (Manual) Monocytes % (Manual) Seg Neutrophils # 8.3 H Seg Neutrophils # Man Lymphocytes # (Manual) Monocytes # (Manual) PT INR APTT Heparin Anti-Xa Level POC ABG pH POC ABG pCO2 POC ABG pO2 Sodium 133 L Potassium Chloride 96.7 L Carbon Dioxide BUN Creatinine 0.4 L Glucose 187 H POC Glucose 144 H Lactic Acid Calcium Phosphorus Total Bilirubin AST ALT Total Creatine Kinase CK-MB (CK-2) Troponin T Total Protein Albumin Prealbumin HDL Cholesterol Salicylates Acetaminophen Crossmatch 11/08/18 11/09/18 11/09/18 16:52 01:48 06:06 WBC 12.7 H RBC 3.47 L Hgb 10.5 L Hct 31.5 L MCV MCHC RDW Plt Count 452 H Lymph % (Auto) [place] % (Auto) 10.9 H [place] # 1.4 H Seg Neutrophils % Seg Neuts % (Manual) Lymphocytes % (Manual) Monocytes % (Manual) Seg Neutrophils # 8.9 H Seg Neutrophils # Man Lymphocytes # (Manual) Monocytes # (Manual) PT INR APTT Heparin Anti-Xa Level POC ABG pH POC ABG pCO2 POC ABG pO2 Sodium Potassium Chloride Carbon Dioxide BUN Creatinine Glucose POC Glucose 220 H 146 H Lactic Acid Calcium Phosphorus Total Bilirubin AST ALT Total Creatine Kinase CK-MB (CK-2) Troponin T Total Protein Albumin Prealbumin HDL Cholesterol Salicylates Acetaminophen Crossmatch 11/09/18 11/09/18 11/09/18 06:06 07:36 12:28 WBC RBC Hgb Hct MCV MCHC RDW Plt Count Lymph % (Auto) [place] % (Auto) [place] # Seg Neutrophils % Seg Neuts % (Manual) Lymphocytes % (Manual) Monocytes % (Manual) Seg Neutrophils # Seg Neutrophils # Man Lymphocytes # (Manual) Monocytes # (Manual) PT INR APTT Heparin Anti-Xa Level POC ABG pH POC ABG pCO2 POC ABG pO2 Sodium 129 L Potassium Chloride 94.5 L Carbon Dioxide BUN Creatinine 0.4 L Glucose 136 H POC Glucose 133 H 193 H Lactic Acid Calcium Phosphorus Total Bilirubin AST ALT Total Creatine Kinase CK-MB (CK-2) Troponin T Total Protein Albumin Prealbumin HDL Cholesterol Salicylates Acetaminophen Crossmatch 11/09/18 11/10/18 11/10/18 21:14 06:27 06:27 WBC RBC 3.50 L Hgb 10.7 L Hct 31.2 L MCV MCHC RDW Plt Count 496 H Lymph % (Auto) [place] % (Auto) 11.8 H [place] # 1.2 H Seg Neutrophils % Seg Neuts % (Manual) Lymphocytes % (Manual) Monocytes % (Manual) Seg Neutrophils # Seg Neutrophils # Man Lymphocytes # (Manual) Monocytes # (Manual) PT INR APTT Heparin Anti-Xa Level POC ABG pH POC ABG pCO2 POC ABG pO2 Sodium 135 L Potassium Chloride 97.2 L Carbon Dioxide BUN Creatinine 0.4 L Glucose 137 H POC Glucose 125 H Lactic Acid Calcium Phosphorus Total Bilirubin AST ALT Total Creatine Kinase CK-MB (CK-2) Troponin T Total Protein Albumin Prealbumin HDL Cholesterol Salicylates Acetaminophen Crossmatch 11/10/18 11/10/18 11/10/18 09:01 17:47 22:10 WBC RBC Hgb Hct MCV MCHC RDW Plt Count Lymph % (Auto) [place] % (Auto) [place] # Seg Neutrophils % Seg Neuts % (Manual) Lymphocytes % (Manual) Monocytes % (Manual) Seg Neutrophils # Seg Neutrophils # Man Lymphocytes # (Manual) Monocytes # (Manual) PT INR APTT Heparin Anti-Xa Level POC ABG pH POC ABG pCO2 POC ABG pO2 Sodium Potassium Chloride Carbon Dioxide BUN Creatinine Glucose POC Glucose 145 H 179 H 178 H Lactic Acid Calcium Phosphorus Total Bilirubin AST ALT Total Creatine Kinase CK-MB (CK-2) Troponin T Total Protein Albumin Prealbumin HDL Cholesterol Salicylates Acetaminophen Crossmatch 11/11/18 11/11/18 11/11/18 07:44 12:18 17:33 WBC RBC Hgb Hct MCV MCHC RDW Plt Count Lymph % (Auto) [place] % (Auto) [place] # Seg Neutrophils % Seg Neuts % (Manual) Lymphocytes % (Manual) Monocytes % (Manual) Seg Neutrophils # Seg Neutrophils # Man Lymphocytes # (Manual) Monocytes # (Manual) PT INR APTT Heparin Anti-Xa Level POC ABG pH POC ABG pCO2 POC ABG pO2 Sodium Potassium Chloride Carbon Dioxide BUN Creatinine Glucose POC Glucose 112 H 206 H 148 H Lactic Acid Calcium Phosphorus Total Bilirubin AST ALT Total Creatine Kinase CK-MB (CK-2) Troponin T Total Protein Albumin Prealbumin HDL Cholesterol Salicylates Acetaminophen Crossmatch 11/11/18 11/12/18 11/12/18 21:29 08:01 11:42 WBC RBC Hgb Hct MCV MCHC RDW Plt Count Lymph % (Auto) [place] % (Auto) [place] # Seg Neutrophils % Seg Neuts % (Manual) Lymphocytes % (Manual) Monocytes % (Manual) Seg Neutrophils # Seg Neutrophils # Man Lymphocytes # (Manual) Monocytes # (Manual) PT INR APTT Heparin Anti-Xa Level POC ABG pH POC ABG pCO2 POC ABG pO2 Sodium Potassium Chloride Carbon Dioxide BUN Creatinine Glucose POC Glucose 184 H 157 H 150 H Lactic Acid Calcium Phosphorus Total Bilirubin AST ALT Total Creatine Kinase CK-MB (CK-2) Troponin T Total Protein Albumin Prealbumin HDL Cholesterol Salicylates Acetaminophen Crossmatch 11/12/18 11/12/18 11/12/18 12:29 12:29 15:21 WBC RBC Hgb 10.7 L Hct 31.2 L MCV MCHC RDW Plt Count 534 H Lymph % (Auto) [place] % (Auto) [place] # Seg Neutrophils % Seg Neuts % (Manual) Lymphocytes % (Manual) Monocytes % (Manual) Seg Neutrophils # Seg Neutrophils # Man Lymphocytes # (Manual) Monocytes # (Manual) PT 16.0 H INR 1.20 H APTT Heparin Anti-Xa Level 2.00 H POC ABG pH POC ABG pCO2 POC ABG pO2 Sodium Potassium Chloride Carbon Dioxide BUN Creatinine Glucose POC Glucose Lactic Acid Calcium Phosphorus Total Bilirubin AST ALT Total Creatine Kinase CK-MB (CK-2) Troponin T Total Protein Albumin Prealbumin HDL Cholesterol Salicylates Acetaminophen Crossmatch 11/12/18 11/12/18 11/12/18 17:00 17:29 20:13 WBC RBC Hgb Hct MCV MCHC RDW Plt Count Lymph % (Auto) [place] % (Auto) [place] # Seg Neutrophils % Seg Neuts % (Manual) Lymphocytes % (Manual) Monocytes % (Manual) Seg Neutrophils # Seg Neutrophils # Man Lymphocytes # (Manual) Monocytes # (Manual) PT INR APTT Heparin Anti-Xa Level 1.97 H POC ABG pH POC ABG pCO2 POC ABG pO2 Sodium Potassium Chloride Carbon Dioxide BUN Creatinine Glucose POC Glucose 125 H Lactic Acid Calcium Phosphorus Total Bilirubin AST ALT Total Creatine Kinase CK-MB (CK-2) Troponin T Total Protein Albumin Prealbumin HDL Cholesterol Salicylates Acetaminophen Crossmatch See Detail 11/12/18 11/13/18 11/13/18 21:11 07:03 08:09 WBC RBC Hgb Hct MCV MCHC RDW Plt Count Lymph % (Auto) [place] % (Auto) [place] # Seg Neutrophils % Seg Neuts % (Manual) Lymphocytes % (Manual) Monocytes % (Manual) Seg Neutrophils # Seg Neutrophils # Man Lymphocytes # (Manual) Monocytes # (Manual) PT INR APTT Heparin Anti-Xa Level 1.50 H POC ABG pH POC ABG pCO2 POC ABG pO2 Sodium Potassium Chloride Carbon Dioxide BUN Creatinine Glucose POC Glucose 128 H 137 H Lactic Acid Calcium Phosphorus Total Bilirubin AST ALT Total Creatine Kinase CK-MB (CK-2) Troponin T Total Protein Albumin Prealbumin HDL Cholesterol Salicylates Acetaminophen Crossmatch Allied health notes reviewed: nursing
[2018-11-13] MEDS: NACL 0.9% 1000 ML 1,000 ML IV SCH (15:11)
[2018-11-13] MEDS ORDERED: NACL 0.9% 1000 ML 1,000 ML ONE (15:11)
--- NOTE | 2018-11-13 15:55 | Anesthesia Day of Surgery ---
Anesthesia Day of Surgery - Day of Surgery Patient Examined: Yes Patient H&P Reviewed: Yes Patient is NPO: Yes
[2018-11-13] MEDS ORDERED: DIPRIVAN 10 MG/ML IV ONE (16:39)
[2018-11-13] MEDS ORDERED: SUBLIMAZE ONE (16:39)
[2018-11-13] MEDS ORDERED: BRIDION IV ONE (16:45)
[2018-11-13] MEDS ORDERED: ANCEF/STERILE WATER 2 GM/20 ML IV NR (17:00)
[2018-11-13] MEDS ORDERED: NACL 0.9% IR ONE (17:12)
[2018-11-13] MEDS ORDERED: ZOFRAN ONE (17:50)
[2018-11-13] MEDS ORDERED: DECADRON ONE (17:50)
[2018-11-13] MEDS ORDERED: ZEMURON IV ONE (17:50)
[2018-11-13] MEDS ORDERED: ROBINUL ONE (17:50)
[2018-11-13] MEDS ORDERED: XYLOCAINE MPF 2% ONE (17:50)
--- NOTE | 2018-11-13 18:00 | Operative Report ---
Operative Report Operative Report: Date of procedure: 11/13/2018 Pre-operative diagnosis: Nonhealing Left Below-Knee Amputation Post-operative diagnosis: Same Procedure(s): Left Above-Knee Amputation Surgeon: Eron Payan MD Economics Instructor: None Anesthesia: General Endotracheal Anesthesia EBL: 100 mL Counts: Correct Complications: None Condition: Stable Findings: All skin muscle and soft tissue of the left above-knee amputation was healthy and viable. Specimen: Left leg sent to pathology Indication: The patient is a 58-year-old male with a history of acute embolus to his left leg. He had an attempted salvage of a below-knee of dictation having this was not healing well so he requires a conversion to a left above-knee amputation. He was given the risks, benefits, and alternative procedures and consented to the procedure. Description of Procedure: The patient was brought to the operating room and laid in supine position after general endotracheal anesthesia was achieved his left leg was prepped and draped in normal sterile fashion. [place] incision was created approximately 3 fingerbreadths above the patella and carried down to the femur using electrocautery. The femur was dissected out circumferentially and the neurovascular bundle was identified and controlled with Loree clamps. Periosteal elevator was then used to elevate the periosteum an oscillating saw was then used to transect the femur approximately 4 cm above the incision. The remaining muscle and soft tissue was divided with electrocautery. The artery and vein were then suture ligated and divided and then I'll perform high ligation of the nerve. Hemostasis was achieved with a combination of electrocautery and suture ligation. Once hemostasis was achieved the femur was smoothed with a rasp and the wound was copiously irrigated. I then anesthetized the wound with 0.5% Marcaine with epi. I closed the wound in 2 layers using 0 Vicryl in interrupted fashion to reapproximate the fascia and jordon to close the skin. I dressed the wound with Xeroform gauze, fluffs, ABDs, Kerlix, and an Oscar bandage. The patient tolerated the procedure well, all sponge needle and sponge counts correct, the patient was taken to the recovery area stable condition.
[2018-11-13] MEDS ORDERED: VERSED ONE (18:25)
[2018-11-13] MEDS ORDERED: VERSED IV ONE (18:26)
--- NOTE | 2018-11-13 18:59 | Post Anesthesia Evaluation ---
- Post Anesthesia Evaluation Patient Participated: Yes Airway Patent: Yes Stable Respiratory Function: Yes Nausea/Vomiting: No Temp > 96.8F: Yes Pain Manageable: Yes Adequeate Hydration: Yes Anesthesia Complications: No Block Receding Appropriately: Not Applicable Patient on Ventilator: No
[2018-11-14] MEDS: PEPCID PO SCH ×3 (00:16→21:07)
[2018-11-14] MEDS: ELIQUIS PO SCH ×3 (00:16→21:05)
[2018-11-14] MEDS: PERCOCET 5/325 PO PRN ×4 (00:17→21:04)
[2018-11-14] MEDS: LOPRESSOR PO SCH ×3 (00:17→21:05)
[2018-11-14] MEDS: COLACE PO SCH ×3 (00:18→21:04)
[2018-11-14] MEDS: HumuLIN R SUB-Q SCH ×5 (01:04→22:03)
[2018-11-14] MEDS: NACL 0.9% 1000 ML 1,000 ML IV SCH ×3 (02:28→23:12)
[2018-11-14] MEDS: DUONEB *Not for PRN Use IH SCH ×3 (07:31→22:00)
--- NOTE | 2018-11-14 08:43 | Progress Note ---
Assessment and Plan Patient status post left [id number] amputation. Will change/remove dressing tomorrow. Patient will need physical therapy and transition to a rehabilitation facility. Subjective Date of service: 11/14/18 Principal diagnosis: Ac hypercapnic hypoxemic Resp failure; Drug OD; AE-COPD; NINOSKA; Seizures Interval history: Patient is doing well postop day 1 status post left [id number] amputation. He is sitting up in bed and eating breakfast at time of examination. No significant complaints of pain. Objective - Constitutional Vitals: Vital Signs - 12hr 11/13/18 11/13/18 11/14/18 22:00 22:46 00:17 Temperature 98.5 F Pulse Rate 74 Pulse Rate [ 79 Right Radial] Respiratory 16 16 Rate Blood Pressure 102/65 134/70 O2 Sat by Pulse 94 Oximetry 11/14/18 11/14/18 05:40 07:30 Temperature 97.4 F L Pulse Rate Pulse Rate [ Right Radial] Respiratory 16 Rate Blood Pressure 108/60 O2 Sat by Pulse 97 Oximetry General appearance: Present: no acute distress, cachectic - EENT Eyes: EOM intact ENT: hearing intact - Neck Neck: supple, normal ROM - Respiratory Respiratory effort: normal - Breasts Breasts: deferred Extremities: abnormal - Gastrointestinal General gastrointestinal: Present: deferred Rectal Exam: deferred - Genitourinary Male genitourinary: deferred - Labs CBC & Chem 7: 11/12/18 12:29 11/10/18 06:27 Labs: Abnormal lab results 11/13/18 11/13/18 11/13/18 Range/Units 15:05 15:36 19:19 POC Hgb 9.2 L (12-17) POC Hct 27 L (38-51) POC Potassium 5.3 H (3.5-4.9) POC Chloride 97 L (98-109) POC Glucose 111 H 140 H (70-105) 11/13/18 Range/Units 21:24 POC Hgb (12-17) POC Hct (38-51) POC Potassium (3.5-4.9) POC Chloride (98-109) POC Glucose 164 H (70-105) Medications & Allergies - Medications Allergies/Adverse Reactions: Allergies No Known Allergies Allergy (Verified 10/31/14 11:20) Home Medications: Home Medications Medication Instructions Recorded Confirmed Last Taken Type Gabapentin [Neurontin] 90 mg PO Q8HR 04/22/15 11/01/18 04/21/15 History ALPRAZolam [Xanax TAB] 1 mg PO TID PRN #30 tablet 03/28/16 11/01/18 Unknown Rx Albuterol Sulfate [Ventolin HFA] 2 puff IH Q4H PRN #1 [id number] 03/28/16 11/01/18 Unknown Rx Ciprofloxacin HCl [Ciprofloxacin 500 mg PO Q12HR #30 tab 03/28/16 11/01/18 Unknown Rx TAB] Citalopram [celeXA] 10 mg PO QDAY #30 tablet 03/28/16 11/01/18 Unknown Rx Nicotine [Habitrol] 14 mg TD QDAY #30 patch 03/28/16 11/01/18 Unknown Rx Sitagliptin Phos/Metformin HCl 1 tab PO QDAY #30 tbmp.24hr 03/28/16 11/01/18 Unknown Rx [Janumet XR 100-1,000 mg] oxyCODONE /ACETAMINOPHEN [Percocet 1 tab PO Q6H PRN #60 tablet 03/28/16 11/01/18 Unknown Rx 5/325 mg] Active Medications: Generic Name Dose Route Start Last Admin Trade Name Freq PRN Reason Stop Dose Admin Acetaminophen 650 mg 10/11/18 04:04 10/21/18 22:21 Tylenol PO 650 mg Q4H PRN Administration Pain MILD(1-3)/Fever >100.5/HOLLINS Albuterol 2.5 mg 10/19/18 00:54 Proventil IH Q4HRT PRN Shortness Of Breath Albuterol/Ipratropium 1 ampul 10/19/18 08:00 11/14/18 07:31 Duoneb *Not For Prn Use* IH Not Given TIDRT ISAAC Alprazolam 1 mg 10/20/18 13:06 11/13/18 07:53 Xanax PO 1 mg TID PRN Administration Anxiety Apixaban 5 mg 11/13/18 22:00 11/14/18 00:16 Eliquis PO 5 mg Q12HR ISAAC Administration Protocol Aspirin 81 mg 11/01/18 16:00 11/13/18 09:17 Halfprin Ec PO 81 mg QDAY ISAAC Administration Buprenorphine HCl 1 each 11/14/18 10:00 Suboxone 2 Mg-0.5 Mg SL QDAY ISAAC Citalopram Hydrobromide 20 mg 11/05/18 10:00 11/13/18 09:16 Celexa PO 20 mg QDAY ISAAC Administration Dextrose 0 ml 10/11/18 03:57 10/11/18 10:18 D50w (25gm) Syringe IV 10 ml PRN PRN Administration Hypoglycemia Docusate Sodium 100 mg 11/04/18 22:00 11/14/18 00:18 Colace PO 100 mg BID ISAAC Administration Famotidine 20 mg 10/15/18 10:00 11/14/18 00:16 Pepcid PO 20 mg BID ISAAC Administration Sodium Chloride 1,000 mls @ 100 mls/hr 11/13/18 16:00 11/14/18 02:28 Nacl 0.9% 1000 Ml IV 100 mls/hr DIRECT ISAAC Administration Insulin Human Regular 0 units 10/17/18 11:30 11/14/18 01:04 Humulin R SUB-Q 3 units ACHS ISAAC Administration Protocol Metoprolol Tartrate 25 mg 10/18/18 22:00 11/14/18 00:17 Lopressor PO 25 mg BID ISAAC Administration Metoprolol Tartrate 2.5 mg 10/18/18 18:51 10/18/18 22:19 Lopressor IV 2.5 mg Q6H PRN Administration Tachyarrhythmias Naloxone HCl 0.1 mg 10/29/18 16:03 Narcan 0.4 Mg/1 Ml IV Q2MIN PRN Res Rate </= 8 or 02 SAT < 92% Ondansetron HCl 4 mg 10/11/18 04:04 11/01/18 22:12 Zofran IV 4 mg Q8H PRN Administration Nausea And Vomiting Oxycodone/Acetaminophen 1 tab 11/11/18 10:21 11/14/18 00:17 Percocet 5/325 PO 1 tab Q4H PRN Administration Pain, Moderate (4-6)
[2018-11-14] MEDS: SUBOXONE 2 MG-0.5 MG SL SCH (09:03)
--- NOTE | 2018-11-14 09:28 | Progress Note ---
Assessment and Plan Assessment and plan: Patient is a 58 yo man with a history of COPD, diabetes mellitus type 2, hypertension, asthma, peripheral neuropathy, chronic hepatitis C virus, panic attack. anxiety disorder, polysubstance abuse including alcohol, cocaine and heroin who [facility] with AMS. He was diagnosed with septic shock due to pneumonia, placed on Antibiotics and vasopressors. He was also diagnosed with DKA/respiratory failure/Status epilepticus/ARF. Patient s/p left BKA, right open thrombectomy and aortic stenting and bilateral common iliac artery stenting but right EIA occluded requiring another open thrombectomy and stenting of the right iliac system. s/p left AKA 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 followed by revascularization right leg on 10/31/18. Vascular surgery feels the patient will need evaluation of his devascularized skin along the lateral aspect of his left stump. Left below-knee amputation converted to left AKA on 11/13 -Acute/subacute right CVA, Initial CT head, no acute finding, 10/13/18 found to have left-sided weakness, MRI brain showed numerous acute/subacute multilobar infarcts involving the cerebrum and cerebellum including Hemorrhagic transformation of the right frontal and biparietal lobes, was Not a candidate for tPA, monitor off aspirin per teleneurology, QUIQUE ; no thrombus or shunt, -Severe sepsis with shock; resolved. Probably due to LLL aspiration pneumonia, completed total 7 days of antibiotics, off vasopressors -Paroxysmal atrial fibrillation. on Eliquis Cardiology is following -LLL pneumonia: completed treatment -Acute respiratory failure with hypoxia and hypercapnia: Requiring intubation, s/p extubation, treat with nebs and supplemental O2 as needed -DKA, resolved: cont SSI for now, diabetic diet -Acute toxic/metabolic encephalopathy, improved -Seizure disorder; seizure precautions, no new episodes of seizure, Ativan when necessary, neurology did not recommend antiepileptic medications -Elevated troponin/NSTEMI type 2, Echocardiogram for further evaluation - Ef 25- 30%, Cardiology consulted, medical Mx for now, -Acute systolic CHF, Ef 25-30%, anti-failure medications, Cardiology is following -Chronic hypotension. Consider Midodrine. -ARF. Etiology secondary to ATN and vasomotor nephropathy, poa, resolved -Hyperkalemia, resolved -Abnormal LFT, Probably due to sepsis, resolving and chronic hepatitis C virus infection, Abdominal US showed no sign of cirrhosis: monitor cmp -Anemia, appears acute on chronic AOCD: monitor closely on iv heparin drip -Severe protein calorie malnutrition, bmi 14.8; nutrition supplements, Dietitian consulted -DVT prophylaxis with Eliquis -GI prophylaxis with famotidine -Tobacco abuse. Patient with a long smoking history of one pack per day or more since age 9. Patient was counseled on smoking cessation. -Disposition: continue inpatient care. Possible rehab vs Subacute rehab placement==>Physical therapy recommended Subacute Rehab but re-evaluation pending. History Interval history: Patient with non-healing left BKA had surgery yesterday, to convert to Left AKA Hospitalist Physical - Physical exam Narrative exam: Gen: Not in acute distress, lying in bed, HEENT: Normocephalic, atraumatic Neck: supple, no JVD Heart: S1 and S2 reg, no murmurs, rubs or gallop Lungs: Clear, no crackles, no wheeze Abd: soft, non tender, non distended, normal BS Ext: No edema, no clubbing, no cyanosis, left AKA Neuro: Awake,alert, oriented x 3, moves all ext, non focal Psych:Normal mood - Constitutional Vitals: Temp Pulse Resp BP Pulse Ox 97.4 F L 74 16 108/60 97 11/14/18 05:40 11/14/18 00:17 11/14/18 05:40 11/14/18 05:40 11/14/18 07:30 General appearance: Present: no acute distress, cachectic Results - Labs CBC & Chem 7: 11/12/18 12:29 11/10/18 06:27 Labs: Laboratory Last Values WBC 10.6 K/mm3 (4.5-11.0) 11/10/18 06:27 RBC 3.50 M/mm3 (3.65-5.03) L 11/10/18 06:27 Hgb 10.7 gm/dl (11.8-15.2) L 11/12/18 12:29 POC Hgb 9.2 (12-17) L 11/13/18 15:36 Hct 31.2 % (35.5-45.6) L 11/12/18 12:29 POC Hct 27 (38-51) L 11/13/18 15:36 MCV 89 fl (84-94) 11/10/18 06:27 MCH 31 pg (28-32) 11/10/18 06:27 MCHC 34 % (32-34) 11/10/18 06:27 RDW 14.1 % (13.2-15.2) 11/10/18 06:27 Plt Count 534 K/mm3 (140-440) H 11/12/18 12:29 Lymph % (Auto) 16.3 % (13.4-35.0) 11/10/18 06:27 Osborne % (Auto) 11.8 % (0.0-7.3) H 11/10/18 06:27 Eos % (Auto) 1.3 % (0.0-4.3) 11/10/18 06:27 Baso % (Auto) 0.8 % (0.0-1.8) 11/10/18 06:27 Lymph # 1.7 K/mm3 (1.2-5.4) 11/10/18 06:27 Osborne # 1.2 K/mm3 (0.0-0.8) H 11/10/18 06:27 Eos # 0.1 K/mm3 (0.0-0.4) 11/10/18 06:27 Baso # 0.1 K/mm3 (0.0-0.1) 11/10/18 06:27 Add Manual Diff Complete 10/30/18 04:22 Total Counted 200 10/30/18 04:22 Seg Neutrophils % 69.8 % (40.0-70.0) 11/10/18 06:27 Seg Neuts % (Manual) 69.0 % (40.0-70.0) 10/30/18 04:22 26.0 % 10/30/18 04:22 1.5 % (13.4-35.0) L 10/30/18 04:22 Reactive Lymphs % (Man) 0 % 10/30/18 04:22 2.0 % (0.0-7.3) 10/30/18 04:22 0 % (0.0-4.3) 10/30/18 04:22 0 % (0.0-1.8) 10/30/18 04:22 1.0 % 10/30/18 04:22 0.5 % 10/30/18 04:22 0 % 10/30/18 04:22 0 % 10/30/18 04:22 Nucleated RBC % Not Reportable 10/30/18 04:22 Seg Neutrophils # 7.4 K/mm3 (1.8-7.7) 11/10/18 06:27 Seg Neutrophils # Man 18.6 K/mm3 (1.8-7.7) H 10/30/18 04:22 Band Neutrophils # 7.0 K/mm3 10/30/18 04:22 0.4 K/mm3 (1.2-5.4) L 10/30/18 04:22 Abs React Lymphs (Man) 0.0 K/mm3 10/30/18 04:22 0.5 K/mm3 (0.0-0.8) 10/30/18 04:22 0.0 K/mm3 (0.0-0.4) 10/30/18 04:22 0.0 K/mm3 (0.0-0.1) 10/30/18 04:22 0.3 K/mm3 10/30/18 04:22 0.1 K/mm3 10/30/18 04:22 0.0 K/mm3 10/30/18 04:22 Blast Cells # 0.0 K/mm3 10/30/18 04:22 Pathologist Review 10/11/18 00:16 WBC Morphology Not Reportable 10/30/18 04:22 WBC Morphology TNR 10/30/18 04:22 Hypersegmented Neuts Not Reportable 10/30/18 04:22 Hyposegmented Neuts Not Reportable 10/30/18 04:22 Hypogranular Neuts Not Reportable 10/30/18 04:22 Not Reportable 10/30/18 04:22 Not Reportable 10/30/18 04:22 Not Reportable 10/30/18 04:22 Not Reportable 10/30/18 04:22 Not Reportable 10/30/18 04:22 Not Reportable 10/30/18 04:22 Consistent w auto 10/30/18 04:22 Not Reportable 10/30/18 04:22 Plt Clumps, EDTA Not Reportable 10/30/18 04:22 Not Reportable 10/30/18 04:22 Not Reportable 10/30/18 04:22 Not Reportable 10/30/18 04:22 Plt Morphology Comment Not Reportable 10/30/18 04:22 RBC Morphology Not Reportable 10/30/18 04:22 Dimorphic RBCs Not Reportable 10/30/18 04:22 Not Reportable 10/30/18 04:22 Not Reportable 10/30/18 04:22 Not Reportable 10/30/18 04:22 Not Reportable 10/30/18 04:22 Not Reportable 10/30/18 04:22 Not Reportable 10/30/18 04:22 Not Reportable 10/30/18 04:22 Not Reportable 10/30/18 04:22 Not Reportable 10/30/18 04:22 Not Reportable 10/30/18 04:22 Not Reportable 10/30/18 04:22 Not Reportable 10/30/18 04:22 Not Reportable 10/30/18 04:22 Not Reportable 10/30/18 04:22 Not Reportable 10/30/18 04:22 Not Reportable 10/30/18 04:22 Not Reportable 10/30/18 04:22 Not Reportable 10/30/18 04:22 Not Reportable 10/30/18 04:22 Acanthocytes (Spur) Not Reportable 10/30/18 04:22 Rouleaux Not Reportable 10/30/18 04:22 Not Reportable 10/30/18 04:22 Not Reportable 10/30/18 04:22 Not Reportable 10/30/18 04:22 Not Reportable 10/30/18 04:22 Hem Pathologist Commnt No 10/30/18 04:22 PT 16.0 Sec. (12.2-14.9) H 11/12/18 12:29 INR 1.20 (0.87-1.13) H 11/12/18 12:29 APTT 32.9 Sec. (24.2-36.6) 11/12/18 12:29 Heparin Anti-Xa Level 1.50 U.I./ml (0.3-0.7) H 11/13/18 07:03 Heparin Anti-Xa, Unfract Negative (Negative) 10/15/18 12:00 POC ABG pH 7.393 (7.35-7.45) 10/16/18 12:51 POC ABG pCO2 48.9 (35-45) H 10/16/18 12:51 POC ABG pO2 92 (80-105) 10/16/18 12:51 POC ABG HCO3 29.8 (22-26 mml/L) 10/16/18 12:51 POC ABG Total CO2 31 (23-27mmol/L) 10/16/18 12:51 POC ABG O2 Sat 97 10/16/18 12:51 POC ABG Base Excess 5 ((-2) - (+3)mmol/L) 10/16/18 12:51 POC Sodium 139 mmol/L (138-146) 11/13/18 15:36 POC Potassium 5.3 (3.5-4.9) H 11/13/18 15:36 POC Chloride 97 (98-109) L 11/13/18 15:36 35 % 10/16/18 12:51 Sodium 135 mmol/L (137-145) L 11/10/18 06:27 Potassium 4.1 mmol/L (3.6-5.0) 11/10/18 06:27 Chloride 97.2 mmol/L (98-107) L 11/10/18 06:27 Carbon Dioxide 27 mmol/L (22-30) 11/10/18 06:27 15 mmol/L 11/10/18 06:27 POC BUN 13 mg/dl (8-26) 11/13/18 15:36 BUN 11 mg/dL (9-20) 11/10/18 06:27 0.4 mg/dL (0.8-1.5) L 11/10/18 06:27 Estimated GFR > 60 ml/min 11/10/18 06:27 28 % 11/10/18 06:27 Glucose 137 mg/dL (75-100) H 11/10/18 06:27 POC Glucose 204 (70-105) H 11/14/18 09:19 Lactic Acid 2.70 mmol/L (0.7-2.0) H* 10/11/18 12:30 Calcium 8.7 mg/dL (8.4-10.2) 11/10/18 06:27 Phosphorus 2.80 mg/dL (2.5-4.5) 10/21/18 04:59 Magnesium 1.70 mg/dL (1.7-2.3) 11/01/18 05:52 0.70 mg/dL (0.1-1.2) 11/04/18 15:45 AST 38 units/L (5-40) 11/04/18 15:45 ALT 23 units/L (7-56) 11/04/18 15:45 54 units/L (35-129) 11/04/18 15:45 3647 units/L (55-170) H 10/12/18 04:04 CK-MB (CK-2) 48.3 ng/mL (0.0-4.0) H 10/12/18 04:04 CK-MB (CK-2) Rel Index 1.3 (0-4) 10/12/18 04:04 0.816 ng/mL (0.00-0.029) H* 10/13/18 16:15 6.8 g/dL (6.3-8.2) 11/04/18 15:45 2.6 g/dL (3.9-5) L 11/04/18 15:45 0.6 % 11/04/18 15:45 0.073 g/L (0.200-0.400) L 11/04/18 15:45 Triglycerides 87 mg/dL (2-149) 10/11/18 00:16 Cholesterol 73 mg/dL (50-199) 10/11/18 00:16 51 mg/dL (50-130) 10/11/18 00:16 19 mg/dL (40-59) L 10/11/18 00:16 3.84 % 10/11/18 00:16 See scanned report 10/15/18 12:00 Yellow (Yellow) 10/11/18 01:42 Cloudy (Clear) 10/11/18 01:42 6.0 (5.0-7.0) 10/11/18 01:42 Ur Specific Chana 1.011 (1.003-1.030) 10/11/18 01:42 100 mg/dl mg/dL (Negative) 10/11/18 01:42 >=500 mg/dL (Negative) 10/11/18 01:42 Neg mg/dL (Negative) 10/11/18 01:42 Mod (Negative) 10/11/18 01:42 Neg (Negative) 10/11/18 01:42 Neg (Negative) 10/11/18 01:42 4.0 mg/dL (<2.0) 10/11/18 01:42 Ur Leukocyte Esterase Neg (Negative) 10/11/18 01:42 5.0 /HPF (0.0-6.0) 10/11/18 01:42 2.0 /HPF (0.0-6.0) 10/11/18 01:42 U Epithel Cells (Auto) < 1.0 /HPF (0-13.0) 10/11/18 01:42 Amorphous Crystals 1+ 10/11/18 01:42 Few /HPF 10/11/18 01:42 2+ /HPF (TIN FLOPPER) 10/11/18 01:42 Vancomycin Trough 8.3 ug/mL (5.0-20.0) 10/13/18 05:40 Salicylates < 0.3 mg/dL (2.8-20.0) L 10/11/18 00:16 Presumptive positive 10/11/18 01:42 Presumptive negative 10/11/18 01:42 Acetaminophen < 5.0 ug/mL (10.0-30.0) L 10/11/18 00:16 Ur Barbiturates Screen Presumptive negative 10/11/18 01:42 Ur Phencyclidine Scrn Presumptive negative 10/11/18 01:42 Ur Amphetamines Screen Presumptive positive 10/11/18 01:42 U Benzodiazepines Scrn Presumptive positive 10/11/18 01:42 Presumptive negative 10/11/18 01:42 U Marijuana (THC) Screen Presumptive negative 10/11/18 01:42 Disclamer 10/11/18 01:42 Plasma/Serum Alcohol < 0.01 % (0-0.07) 10/11/18 00:16 Heparin-induced Plt Ab Negative (Negative) 10/15/18 12:00 UF Heparin High Dose 0 % Release 10/15/18 12:00 AURELIO UFH Low Dose 0.1 0 % Release 10/15/18 12:00 AURELIO UFH Low Dose 0.5 0 % Release 10/15/18 12:00 Blood Type O POSITIVE 11/12/18 17:00 Antibody Screen TNR 11/12/18 17:00 DENNISE Antibody Screen Negative 11/12/18 17:00 Antibody Identification Negative 10/31/18 08:07 Direct Antiglob Test Negative 10/31/18 08:07 SHASHANK, Poly Interpret Negative 10/31/18 08:07 Crossmatch See Detail 11/12/18 17:00 Active Medications - Current Medications Current Medications: Generic Name Dose Route Start Last Admin Trade Name Freq PRN Reason Stop Dose Admin Acetaminophen 650 mg 10/11/18 04:04 10/21/18 22:21 Tylenol PO 650 mg Q4H PRN Administration Pain MILD(1-3)/Fever >100.5/HOLLINS Albuterol 2.5 mg 10/19/18 00:54 Proventil IH Q4HRT PRN Shortness Of Breath Albuterol/Ipratropium 1 ampul 10/19/18 08:00 11/14/18 07:31 Duoneb *Not For Prn Use* IH Not Given TIDRT ISAAC Alprazolam 1 mg 10/20/18 13:06 11/13/18 07:53 Xanax PO 1 mg TID PRN Administration Anxiety Apixaban 5 mg 11/13/18 22:00 11/14/18 00:16 Eliquis PO 5 mg Q12HR ISAAC Administration Protocol Aspirin 81 mg 11/01/18 16:00 11/13/18 09:17 Halfprin Ec PO 81 mg QDAY ISAAC Administration Buprenorphine HCl 1 each 11/14/18 10:00 11/14/18 09:03 Suboxone 2 Mg-0.5 Mg SL 1 each QDAY ISAAC Administration Citalopram Hydrobromide 20 mg 11/05/18 10:00 11/13/18 09:16 Celexa PO 20 mg QDAY ISAAC Administration Dextrose 0 ml 10/11/18 03:57 10/11/18 10:18 D50w (25gm) Syringe IV 10 ml PRN PRN Administration Hypoglycemia Docusate Sodium 100 mg 11/04/18 22:00 11/14/18 00:18 Colace PO 100 mg BID ISAAC Administration Famotidine 20 mg 10/15/18 10:00 11/14/18 00:16 Pepcid PO 20 mg BID ISAAC Administration Sodium Chloride 1,000 mls @ 100 mls/hr 11/13/18 16:00 11/14/18 02:28 Nacl 0.9% 1000 Ml IV 100 mls/hr DIRECT ISAAC Administration Insulin Human Regular 0 units 10/17/18 11:30 11/14/18 01:04 Humulin R SUB-Q 3 units ACHS ISAAC Administration Protocol Metoprolol Tartrate 25 mg 10/18/18 22:00 11/14/18 00:17 Lopressor PO 25 mg BID ISAAC Administration Metoprolol Tartrate 2.5 mg 10/18/18 18:51 10/18/18 22:19 Lopressor IV 2.5 mg Q6H PRN Administration Tachyarrhythmias Naloxone HCl 0.1 mg 10/29/18 16:03 Narcan 0.4 Mg/1 Ml IV Q2MIN PRN Res Rate </= 8 or 02 SAT < 92% Ondansetron HCl 4 mg 10/11/18 04:04 11/01/18 22:12 Zofran IV 4 mg Q8H PRN Administration Nausea And Vomiting Oxycodone/Acetaminophen 1 tab 11/11/18 10:21 11/14/18 09:00 Percocet 5/325 PO 1 tab Q4H PRN Administration Pain, Moderate (4-6) Nutrition/Malnutrition Assess - Dietary Evaluation Nutrition/Malnutrition Findings: Nutrition Notes Start: 10/11/18 12:39 Freq: Status: Active Protocol: Document 11/13/18 16:02 RM (Rec: 11/13/18 16:10 RM [id number]) Nutrition Notes Initial or Follow up Reassessment Current Diagnosis COPD,Diabetes,Sepsis, Hypertension,Heart Failure, Stroke Other Pertinent Diagnosis s/p (L) BKA Current Diet NPO after midnight Labs/Tests No recent labs Pertinent Medications Reviewed Height 6 ft 3 in Weight 49.5 kg [place] Body Weight (kg) 89.09 BMI 13.6 Subjective/Other Information Pt NPO for L BKA revision. Pt sleepy at time of visit but stated that his appetite is good. Pt tech confirmed that prior to NPO status pt ate most of his meals in addition to junk food his family brings in. Percent of energy/protein needs met: 81%/100% Burn Absent Trauma Absent #2 Nutrition Diagnosis Inadequate oral intake As Evidenced by Signs and Symptoms pt meeting 81% of calorie and 100% of protein needs Diagnosis Progress(for reassessment Improved documentation) #1 Nutrition Diagnosis Malnutrition Diagnosis Progress(for reassessment Continues documentation) Is patient on ventilator? No Is Patient Ambulatory and/or Out of Bed Yes REE-([place]-St. Jeor-ambulatory/OOB) [ 1833.819 [id number]] Kcal/Kg value to use for calculation 40 Approximate Energy Requirements Using 1980 kcal/Kg Calculation Used for Recommendations Kcal/kg Additional Notes Pro needs 1.2-1.5g/kg adjBW for BKA: 70-88g/day Fluid needs 1ml/kcal Nutrition Intervention Change Diet Order: Continue current diet order Add Supplement/Snack (indicate name/kcal Glucerna BID + [place] BID once /protein ) diet advanced Provides kCal: 630 Provides Protein (gm) 25 Goal #1 PO intake of meals plus ONS to continue to meet at least 75% of energy and pro needs Anticipated Discharge Needs: [facility] soft w/chopped meat diet Follow-Up By: 11/20/18 Additional Comments Follow for PO and ONS intakes
[2018-11-14] MEDS: celeXA PO SCH (10:03)
[2018-11-14] MEDS: HALFPRIN EC PO SCH (10:03)
--- NOTE | 2018-11-14 11:30 | Progress Note ---
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 Patient awake. Patient not using O2 as recommended. Recommend O2 2 litres via nasal canula.O2 saturation 91%. Patient weak and no acute respiratory distress at this time. - Patient Problems (1) Acute respiratory failure Current Visit: Yes Status: Acute Plan to address problem: O2 2 litres via nasal canula. Albuterol/atrovent aerosol treatments q 6 hours. Patient is on Apixaban. Continue famotidine. (2) Acute CVA (cerebrovascular accident) Current Visit: Yes Status: Acute Plan to address problem: Management as per neurology. (3) Altered mental state Current Visit: Yes Status: Acute Qualifiers: Altered mental status type: unspecified Qualified Code(s): R41.82 - Altered mental status, unspecified Plan to address problem: Management as per primary care. (4) Atrial fibrillation Current Visit: Yes Status: Acute Plan to address problem: Management as per primary care and cardiology. Patient is on Apixaban (5) Diabetes mellitus with hyperglycemia Current Visit: Yes Status: Acute Plan to address problem: Management as per primary care. (6) Polysubstance abuse Current Visit: Yes Status: Chronic Plan to address problem: Management as per primary care. (7) Tobacco use Current Visit: Yes Status: Chronic Plan to address problem: Counselled to stop smoking. 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 Patient awake. Patient not using O2 as recommended. Recommend O2 2 litres via nasal canula.O2 saturation 91%. Patient weak and no acute respiratory distress at this time. Objective Vital Signs - 12hr 11/14/18 11/14/18 11/14/18 00:17 05:40 07:30 Temperature 97.4 F L Pulse Rate 74 Respiratory 16 Rate Blood Pressure 134/70 108/60 O2 Sat by Pulse 97 Oximetry Constitutional: no acute distress, alert, other (middle aged but chronically ill looking CM; Atraumatic) Eyes: non-icteric ENT: oropharynx moist, other (mallampati 2) Neck: supple, no lymphadenopathy, no JVD Effort: normal Ascultation: Bilateral: diminished breath sounds, rhonchi (scant) Percussion: Bilateral: not dull Cardiovascular: irregular rhythm, other (No R/M) Gastrointestinal: normoactive bowel sounds, soft, non-tender, non-distended Integumentary: other (s/p left BKA) Extremities: no edema, other (S/P Left AKA. 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 (12.2-14.9) H 11/12/18 12:29 INR 1.20 (0.87-1.13) H 11/12/18 12:29 Abnormal lab findings: Abnormal Labs 10/11/18 10/11/18 10/11/18 00:16 00:16 00:16 WBC 20.1 H RBC Hgb POC Hgb Hct POC Hct MCV 98 H MCHC RDW 15.4 H Plt Count Lymph % (Auto) [place] % (Auto) [place] # Seg Neutrophils % Seg Neuts % (Manual) Lymphocytes % (Manual) 5.0 L Monocytes % (Manual) 25.0 H Seg Neutrophils # Seg Neutrophils # Man 9.2 H Lymphocytes # (Manual) 1.0 L Monocytes # (Manual) 5.0 H PT INR APTT Heparin Anti-Xa Level POC ABG pH POC ABG pCO2 POC ABG pO2 POC Potassium POC Chloride Sodium Potassium 5.8 H Chloride Carbon Dioxide 17 L BUN Creatinine 2.2 H Glucose 348 H POC Glucose Lactic Acid 13.70 H* Calcium 7.7 L Phosphorus Total Bilirubin 1.50 H AST 179 H ALT 110 H Total Creatine Kinase 324 H CK-MB (CK-2) Troponin T 0.257 H* Total Protein 5.9 L Albumin 2.9 L Prealbumin HDL Cholesterol 19 L Salicylates Acetaminophen Crossmatch 10/11/18 10/11/18 10/11/18 00:16 00:16 01:21 WBC RBC Hgb POC Hgb Hct POC Hct MCV MCHC RDW Plt Count Lymph % (Auto) [place] % (Auto) [place] # Seg Neutrophils % Seg Neuts % (Manual) Lymphocytes % (Manual) Monocytes % (Manual) Seg Neutrophils # Seg Neutrophils # Man Lymphocytes # (Manual) Monocytes # (Manual) PT INR APTT Heparin Anti-Xa Level POC ABG pH 7.110 L POC ABG pCO2 50.3 H POC ABG pO2 65 L POC Potassium POC Chloride Sodium Potassium Chloride Carbon Dioxide BUN Creatinine Glucose POC Glucose Lactic Acid Calcium Phosphorus Total Bilirubin AST ALT Total Creatine Kinase CK-MB (CK-2) Troponin T Total Protein Albumin Prealbumin HDL Cholesterol Salicylates < 0.3 L Acetaminophen < 5.0 L Crossmatch 10/11/18 10/11/18 10/11/18 01:22 03:27 04:14 WBC RBC Hgb POC Hgb Hct POC Hct MCV MCHC RDW Plt Count Lymph % (Auto) [place] % (Auto) [place] # Seg Neutrophils % Seg Neuts % (Manual) Lymphocytes % (Manual) Monocytes % (Manual) Seg Neutrophils # Seg Neutrophils # Man Lymphocytes # (Manual) Monocytes # (Manual) PT INR APTT Heparin Anti-Xa Level POC ABG pH POC ABG pCO2 POC ABG pO2 POC Potassium POC Chloride Sodium Potassium Chloride Carbon Dioxide BUN Creatinine Glucose POC Glucose Lactic Acid 8.50 H* 4.10 H* Calcium Phosphorus 4.90 H Total Bilirubin AST ALT Total Creatine Kinase CK-MB (CK-2) Troponin T Total Protein Albumin Prealbumin HDL Cholesterol Salicylates Acetaminophen Crossmatch 10/11/18 10/11/18 10/11/18 04:14 04:14 04:14 WBC RBC Hgb POC Hgb Hct POC Hct MCV MCHC RDW Plt Count Lymph % (Auto) [place] % (Auto) [place] # Seg Neutrophils % Seg Neuts % (Manual) Lymphocytes % (Manual) Monocytes % (Manual) Seg Neutrophils # Seg Neutrophils # Man Lymphocytes # (Manual) Monocytes # (Manual) PT INR APTT Heparin Anti-Xa Level POC ABG pH POC ABG pCO2 POC ABG pO2 POC Potassium POC Chloride Sodium Potassium 5.6 H Chloride Carbon Dioxide 19 L BUN Creatinine 1.6 H Glucose 329 H POC Glucose 328 H Lactic Acid Calcium 7.3 L Phosphorus Total Bilirubin AST ALT Total Creatine Kinase CK-MB (CK-2) Troponin T 1.130 H* D Total Protein Albumin Prealbumin HDL Cholesterol Salicylates Acetaminophen Crossmatch 10/11/18 10/11/18 10/11/18 05:10 05:32 05:58 WBC RBC Hgb POC Hgb Hct POC Hct MCV MCHC RDW Plt Count Lymph % (Auto) [place] % (Auto) [place] # Seg Neutrophils % Seg Neuts % (Manual) Lymphocytes % (Manual) Monocytes % (Manual) Seg Neutrophils # Seg Neutrophils # Man Lymphocytes # (Manual) Monocytes # (Manual) PT INR APTT Heparin Anti-Xa Level POC ABG pH 7.259 L POC ABG pCO2 45.6 H POC ABG pO2 POC Potassium POC Chloride Sodium Potassium Chloride 108.6 H Carbon Dioxide 20 L BUN Creatinine 1.8 H Glucose 269 H POC Glucose 273 H Lactic Acid Calcium 7.0 L Phosphorus Total Bilirubin AST ALT Total Creatine Kinase CK-MB (CK-2) Troponin T Total Protein Albumin Prealbumin HDL Cholesterol Salicylates Acetaminophen Crossmatch 10/11/18 10/11/18 10/11/18 05:58 06:39 07:00 WBC RBC Hgb POC Hgb Hct POC Hct MCV MCHC RDW Plt Count Lymph % (Auto) [place] % (Auto) [place] # Seg Neutrophils % Seg Neuts % (Manual) Lymphocytes % (Manual) Monocytes % (Manual) Seg Neutrophils # Seg Neutrophils # Man Lymphocytes # (Manual) Monocytes # (Manual) PT INR APTT Heparin Anti-Xa Level POC ABG pH POC ABG pCO2 POC ABG pO2 POC Potassium POC Chloride Sodium Potassium Chloride Carbon Dioxide BUN Creatinine Glucose POC Glucose 247 H Lactic Acid 3.20 H* 3.30 H* Calcium Phosphorus Total Bilirubin AST ALT Total Creatine Kinase CK-MB (CK-2) Troponin T Total Protein Albumin Prealbumin HDL Cholesterol Salicylates Acetaminophen Crossmatch 10/11/18 10/11/18 10/11/18 07:00 07:30 07:36 WBC RBC Hgb POC Hgb Hct POC Hct MCV MCHC RDW Plt Count Lymph % (Auto) [place] % (Auto) [place] # Seg Neutrophils % Seg Neuts % (Manual) Lymphocytes % (Manual) Monocytes % (Manual) Seg Neutrophils # Seg Neutrophils # Man Lymphocytes # (Manual) Monocytes # (Manual) PT INR APTT Heparin Anti-Xa Level POC ABG pH POC ABG pCO2 POC ABG pO2 POC Potassium POC Chloride Sodium 146 H Potassium Chloride 112.1 H Carbon Dioxide 21 L BUN Creatinine 1.6 H Glucose 218 H POC Glucose Lactic Acid 3.20 H* Calcium 7.0 L Phosphorus Total Bilirubin AST ALT Total Creatine Kinase CK-MB (CK-2) Troponin T 1.020 H* Total Protein Albumin Prealbumin HDL Cholesterol Salicylates Acetaminophen Crossmatch 10/11/18 10/11/18 10/11/18 07:43 08:29 08:29 WBC RBC Hgb 16.2 H POC Hgb Hct 49.9 H D POC Hct MCV MCHC RDW Plt Count Lymph % (Auto) [place] % (Auto) [place] # Seg Neutrophils % Seg Neuts % (Manual) Lymphocytes % (Manual) Monocytes % (Manual) Seg Neutrophils # Seg Neutrophils # Man Lymphocytes # (Manual) Monocytes # (Manual) PT INR APTT Heparin Anti-Xa Level POC ABG pH POC ABG pCO2 POC ABG pO2 POC Potassium POC Chloride Sodium Potassium Chloride Carbon Dioxide BUN Creatinine Glucose POC Glucose 174 H Lactic Acid 3.90 H* Calcium Phosphorus Total Bilirubin AST ALT Total Creatine Kinase CK-MB (CK-2) Troponin T Total Protein Albumin Prealbumin HDL Cholesterol Salicylates Acetaminophen Crossmatch 10/11/18 10/11/18 10/11/18 08:29 08:42 11:05 WBC RBC Hgb POC Hgb Hct POC Hct MCV MCHC RDW Plt Count Lymph % (Auto) [place] % (Auto) [place] # Seg Neutrophils % Seg Neuts % (Manual) Lymphocytes % (Manual) Monocytes % (Manual) Seg Neutrophils # Seg Neutrophils # Man Lymphocytes # (Manual) Monocytes # (Manual) PT INR APTT 24.1 L Heparin Anti-Xa Level POC ABG pH POC ABG pCO2 POC ABG pO2 POC Potassium POC Chloride Sodium 147 H Potassium Chloride 113.3 H Carbon Dioxide 21 L BUN Creatinine 1.7 H Glucose 119 H POC Glucose 164 H Lactic Acid Calcium 7.7 L Phosphorus Total Bilirubin AST ALT Total Creatine Kinase CK-MB (CK-2) Troponin T Total Protein Albumin Prealbumin HDL Cholesterol Salicylates Acetaminophen Crossmatch 10/11/18 10/11/18 10/11/18 11:05 11:06 12:30 WBC RBC Hgb POC Hgb Hct POC Hct MCV MCHC RDW Plt Count Lymph % (Auto) [place] % (Auto) [place] # Seg Neutrophils % Seg Neuts % (Manual) Lymphocytes % (Manual) Monocytes % (Manual) Seg Neutrophils # Seg Neutrophils # Man Lymphocytes # (Manual) Monocytes # (Manual) PT INR APTT Heparin Anti-Xa Level POC ABG pH POC ABG pCO2 POC ABG pO2 POC Potassium POC Chloride Sodium 148 H Potassium Chloride 113.4 H Carbon Dioxide 21 L BUN Creatinine 1.6 H Glucose 119 H POC Glucose 116 H Lactic Acid 3.20 H* Calcium 7.5 L Phosphorus Total Bilirubin AST ALT Total Creatine Kinase CK-MB (CK-2) Troponin T Total Protein Albumin Prealbumin HDL Cholesterol Salicylates Acetaminophen Crossmatch 10/11/18 10/11/18 10/11/18 12:30 13:16 13:25 WBC RBC Hgb POC Hgb Hct POC Hct MCV MCHC RDW Plt Count Lymph % (Auto) [place] % (Auto) [place] # Seg Neutrophils % Seg Neuts % (Manual) Lymphocytes % (Manual) Monocytes % (Manual) Seg Neutrophils # Seg Neutrophils # Man Lymphocytes # (Manual) Monocytes # (Manual) PT INR APTT Heparin Anti-Xa Level POC ABG pH 7.247 L POC ABG pCO2 48.4 H POC ABG pO2 POC Potassium POC Chloride Sodium Potassium Chloride Carbon Dioxide BUN Creatinine Glucose POC Glucose 112 H Lactic Acid 2.70 H* Calcium Phosphorus Total Bilirubin AST ALT Total Creatine Kinase CK-MB (CK-2) Troponin T Total Protein Albumin Prealbumin HDL Cholesterol Salicylates Acetaminophen Crossmatch 10/11/18 10/11/18 10/11/18 14:41 15:27 16:13 WBC RBC Hgb POC Hgb Hct POC Hct MCV MCHC RDW Plt Count Lymph % (Auto) [place] % (Auto) [place] # Seg Neutrophils % Seg Neuts % (Manual) Lymphocytes % (Manual) Monocytes % (Manual) Seg Neutrophils # Seg Neutrophils # Man Lymphocytes # (Manual) Monocytes # (Manual) PT INR APTT Heparin Anti-Xa Level POC ABG pH POC ABG pCO2 POC ABG pO2 POC Potassium POC Chloride Sodium Potassium Chloride Carbon Dioxide BUN Creatinine Glucose POC Glucose 127 H 141 H 134 H Lactic Acid Calcium Phosphorus Total Bilirubin AST ALT Total Creatine Kinase CK-MB (CK-2) Troponin T Total Protein Albumin Prealbumin HDL Cholesterol Salicylates Acetaminophen Crossmatch 10/11/18 10/11/18 10/11/18 17:18 18:23 19:38 WBC RBC Hgb POC Hgb Hct POC Hct MCV MCHC RDW Plt Count Lymph % (Auto) [place] % (Auto) [place] # Seg Neutrophils % Seg Neuts % (Manual) Lymphocytes % (Manual) Monocytes % (Manual) Seg Neutrophils # Seg Neutrophils # Man Lymphocytes # (Manual) Monocytes # (Manual) PT INR APTT Heparin Anti-Xa Level POC ABG pH POC ABG pCO2 POC ABG pO2 POC Potassium POC Chloride Sodium 148 H Potassium Chloride 112.7 H Carbon Dioxide BUN 23 H Creatinine Glucose 143 H POC Glucose 132 H 129 H Lactic Acid Calcium 7.9 L Phosphorus Total Bilirubin AST ALT Total Creatine Kinase CK-MB (CK-2) Troponin T Total Protein Albumin Prealbumin HDL Cholesterol Salicylates Acetaminophen Crossmatch 10/11/18 10/11/18 10/11/18 20:19 20:36 21:01 WBC RBC Hgb POC Hgb Hct POC Hct MCV MCHC RDW Plt Count Lymph % (Auto) [place] % (Auto) [place] # Seg Neutrophils % Seg Neuts % (Manual) Lymphocytes % (Manual) Monocytes % (Manual) Seg Neutrophils # Seg Neutrophils # Man Lymphocytes # (Manual) Monocytes # (Manual) PT INR APTT Heparin Anti-Xa Level POC ABG pH 7.281 L POC ABG pCO2 POC ABG pO2 POC Potassium POC Chloride Sodium Potassium Chloride Carbon Dioxide BUN Creatinine Glucose POC Glucose 129 H 151 H Lactic Acid Calcium Phosphorus Total Bilirubin AST ALT Total Creatine Kinase CK-MB (CK-2) Troponin T Total Protein Albumin Prealbumin HDL Cholesterol Salicylates Acetaminophen Crossmatch 10/11/18 10/11/18 10/12/18 22:04 23:15 01:18 WBC RBC Hgb POC Hgb Hct POC Hct MCV MCHC RDW Plt Count Lymph % (Auto) [place] % (Auto) [place] # Seg Neutrophils % Seg Neuts % (Manual) Lymphocytes % (Manual) Monocytes % (Manual) Seg Neutrophils # Seg Neutrophils # Man Lymphocytes # (Manual) Monocytes # (Manual) PT INR APTT Heparin Anti-Xa Level POC ABG pH POC ABG pCO2 POC ABG pO2 POC Potassium POC Chloride Sodium Potassium Chloride Carbon Dioxide BUN Creatinine Glucose POC Glucose 147 H 143 H 158 H Lactic Acid Calcium Phosphorus Total Bilirubin AST ALT Total Creatine Kinase CK-MB (CK-2) Troponin T Total Protein Albumin Prealbumin HDL Cholesterol Salicylates Acetaminophen Crossmatch 10/12/18 10/12/18 10/12/18 02:13 03:18 04:04 WBC RBC Hgb POC Hgb Hct POC Hct MCV MCHC RDW Plt Count Lymph % (Auto) [place] % (Auto) [place] # Seg Neutrophils % Seg Neuts % (Manual) Lymphocytes % (Manual) Monocytes % (Manual) Seg Neutrophils # Seg Neutrophils # Man Lymphocytes # (Manual) Monocytes # (Manual) PT INR APTT Heparin Anti-Xa Level POC ABG pH POC ABG pCO2 POC ABG pO2 POC Potassium POC Chloride Sodium 147 H Potassium Chloride 111.1 H Carbon Dioxide BUN 30 H Creatinine 2.0 H Glucose 154 H POC Glucose 148 H 142 H Lactic Acid Calcium 8.1 L Phosphorus Total Bilirubin AST 269 H ALT 204 H Total Creatine Kinase 3647 H CK-MB (CK-2) 48.3 H Troponin T 2.230 H* D Total Protein 5.8 L Albumin 2.6 L Prealbumin HDL Cholesterol Salicylates Acetaminophen Crossmatch 10/12/18 10/12/18 10/12/18 04:04 04:08 04:19 WBC 24.4 H RBC Hgb POC Hgb Hct POC Hct MCV MCHC RDW Plt Count Lymph % (Auto) [place] % (Auto) [place] # Seg Neutrophils % Seg Neuts % (Manual) 32.0 L Lymphocytes % (Manual) Monocytes % (Manual) 8.0 H Seg Neutrophils # Seg Neutrophils # Man 7.8 H Lymphocytes # (Manual) Monocytes # (Manual) 2.0 H PT INR APTT Heparin Anti-Xa Level POC ABG pH 7.317 L POC ABG pCO2 49.3 H POC ABG pO2 POC Potassium POC Chloride Sodium Potassium Chloride Carbon Dioxide BUN Creatinine Glucose POC Glucose 143 H Lactic Acid Calcium Phosphorus Total Bilirubin AST ALT Total Creatine Kinase CK-MB (CK-2) Troponin T Total Protein Albumin Prealbumin HDL Cholesterol Salicylates Acetaminophen Crossmatch 10/12/18 10/12/18 10/12/18 05:29 06:52 08:09 WBC RBC Hgb POC Hgb Hct POC Hct MCV MCHC RDW Plt Count Lymph % (Auto) [place] % (Auto) [place] # Seg Neutrophils % Seg Neuts % (Manual) Lymphocytes % (Manual) Monocytes % (Manual) Seg Neutrophils # Seg Neutrophils # Man Lymphocytes # (Manual) Monocytes # (Manual) PT INR APTT Heparin Anti-Xa Level POC ABG pH 7.322 L POC ABG pCO2 46.5 H POC ABG pO2 POC Potassium POC Chloride Sodium Potassium Chloride Carbon Dioxide BUN Creatinine Glucose POC Glucose 196 H 226 H Lactic Acid Calcium Phosphorus Total Bilirubin AST ALT Total Creatine Kinase CK-MB (CK-2) Troponin T Total Protein Albumin Prealbumin HDL Cholesterol Salicylates Acetaminophen Crossmatch 10/12/18 10/12/18 10/12/18 08:38 10:03 15:50 WBC RBC Hgb POC Hgb Hct POC Hct MCV MCHC RDW Plt Count Lymph % (Auto) [place] % (Auto) [place] # Seg Neutrophils % Seg Neuts % (Manual) Lymphocytes % (Manual) Monocytes % (Manual) Seg Neutrophils # Seg Neutrophils # Man Lymphocytes # (Manual) Monocytes # (Manual) PT INR APTT Heparin Anti-Xa Level POC ABG pH POC ABG pCO2 POC ABG pO2 POC Potassium POC Chloride Sodium Potassium Chloride Carbon Dioxide BUN Creatinine Glucose POC Glucose 138 H 148 H 221 H Lactic Acid Calcium Phosphorus Total Bilirubin AST ALT Total Creatine Kinase CK-MB (CK-2) Troponin T Total Protein Albumin Prealbumin HDL Cholesterol Salicylates Acetaminophen Crossmatch 10/12/18 10/12/18 10/12/18 18:39 20:56 21:34 WBC RBC Hgb POC Hgb Hct POC Hct MCV MCHC RDW Plt Count Lymph % (Auto) [place] % (Auto) [place] # Seg Neutrophils % Seg Neuts % (Manual) Lymphocytes % (Manual) Monocytes % (Manual) Seg Neutrophils # Seg Neutrophils # Man Lymphocytes # (Manual) Monocytes # (Manual) PT INR APTT Heparin Anti-Xa Level POC ABG pH 7.336 L POC ABG pCO2 46.0 H POC ABG pO2 POC Potassium POC Chloride Sodium Potassium Chloride Carbon Dioxide BUN Creatinine Glucose POC Glucose 255 H 260 H Lactic Acid Calcium Phosphorus Total Bilirubin AST ALT Total Creatine Kinase CK-MB (CK-2) Troponin T Total Protein Albumin Prealbumin HDL Cholesterol Salicylates Acetaminophen Crossmatch 10/13/18 10/13/18 10/13/18 02:29 05:09 05:40 WBC 17.0 H RBC Hgb POC Hgb Hct POC Hct MCV MCHC RDW Plt Count Lymph % (Auto) [place] % (Auto) 9.2 H [place] # 1.6 H Seg Neutrophils % 76.2 H Seg Neuts % (Manual) Lymphocytes % (Manual) Monocytes % (Manual) Seg Neutrophils # 12.9 H Seg Neutrophils # Man Lymphocytes # (Manual) Monocytes # (Manual) PT INR APTT Heparin Anti-Xa Level POC ABG pH POC ABG pCO2 POC ABG pO2 POC Potassium POC Chloride Sodium Potassium Chloride Carbon Dioxide BUN Creatinine Glucose POC Glucose 216 H 249 H Lactic Acid Calcium Phosphorus Total Bilirubin AST ALT Total Creatine Kinase CK-MB (CK-2) Troponin T Total Protein Albumin Prealbumin HDL Cholesterol Salicylates Acetaminophen Crossmatch 10/13/18 10/13/18 10/13/18 05:40 05:40 09:46 WBC RBC Hgb POC Hgb Hct POC Hct MCV MCHC RDW Plt Count Lymph % (Auto) [place] % (Auto) [place] # Seg Neutrophils % Seg Neuts % (Manual) Lymphocytes % (Manual) Monocytes % (Manual) Seg Neutrophils # Seg Neutrophils # Man Lymphocytes # (Manual) Monocytes # (Manual) PT INR APTT Heparin Anti-Xa Level POC ABG pH POC ABG pCO2 POC ABG pO2 POC Potassium POC Chloride Sodium 146 H Potassium Chloride 109.8 H Carbon Dioxide BUN 35 H Creatinine Glucose 245 H POC Glucose 235 H Lactic Acid Calcium 7.9 L Phosphorus Total Bilirubin AST ALT Total Creatine Kinase CK-MB (CK-2) Troponin T 0.952 H* D Total Protein Albumin Prealbumin HDL Cholesterol Salicylates Acetaminophen Crossmatch 10/13/18 10/13/18 10/13/18 13:58 16:15 17:30 WBC RBC Hgb POC Hgb Hct POC Hct MCV MCHC RDW Plt Count Lymph % (Auto) [place] % (Auto) [place] # Seg Neutrophils % Seg Neuts % (Manual) Lymphocytes % (Manual) Monocytes % (Manual) Seg Neutrophils # Seg Neutrophils # Man Lymphocytes # (Manual) Monocytes # (Manual) PT INR APTT Heparin Anti-Xa Level POC ABG pH POC ABG pCO2 51.2 H POC ABG pO2 POC Potassium POC Chloride Sodium Potassium Chloride Carbon Dioxide BUN Creatinine Glucose POC Glucose 139 H Lactic Acid Calcium Phosphorus Total Bilirubin AST ALT Total Creatine Kinase CK-MB (CK-2) Troponin T 0.816 H* Total Protein Albumin Prealbumin HDL Cholesterol Salicylates Acetaminophen Crossmatch 10/13/18 10/14/18 10/14/18 21:25 01:49 04:52 WBC RBC Hgb POC Hgb Hct POC Hct MCV MCHC RDW Plt Count Lymph % (Auto) [place] % (Auto) [place] # Seg Neutrophils % Seg Neuts % (Manual) Lymphocytes % (Manual) Monocytes % (Manual) Seg Neutrophils # Seg Neutrophils # Man Lymphocytes # (Manual) Monocytes # (Manual) PT INR APTT Heparin Anti-Xa Level POC ABG pH POC ABG pCO2 56.0 H POC ABG pO2 POC Potassium POC Chloride Sodium Potassium Chloride Carbon Dioxide BUN Creatinine Glucose POC Glucose 205 H 166 H Lactic Acid Calcium Phosphorus Total Bilirubin AST ALT Total Creatine Kinase CK-MB (CK-2) Troponin T Total Protein Albumin Prealbumin HDL Cholesterol Salicylates Acetaminophen Crossmatch 10/14/18 10/14/18 10/14/18 05:32 09:45 09:45 WBC RBC Hgb 11.4 L POC Hgb Hct 34.5 L POC Hct MCV MCHC RDW Plt Count 139 L Lymph % (Auto) [place] % (Auto) [place] # Seg Neutrophils % Seg Neuts % (Manual) Lymphocytes % (Manual) Monocytes % (Manual) Seg Neutrophils # Seg Neutrophils # Man Lymphocytes # (Manual) Monocytes # (Manual) PT INR APTT Heparin Anti-Xa Level POC ABG pH POC ABG pCO2 POC ABG pO2 POC Potassium POC Chloride Sodium 148 H Potassium Chloride 107.3 H Carbon Dioxide 34 H D BUN Creatinine 0.7 L D Glucose 191 H POC Glucose 164 H Lactic Acid Calcium 7.3 L Phosphorus Total Bilirubin AST 110 H ALT 91 H Total Creatine Kinase CK-MB (CK-2) Troponin T Total Protein 4.9 L Albumin 2.0 L Prealbumin HDL Cholesterol Salicylates Acetaminophen Crossmatch 10/14/18 10/14/18 10/14/18 10:54 12:20 18:30 WBC RBC Hgb POC Hgb Hct POC Hct MCV MCHC RDW Plt Count Lymph % (Auto) [place] % (Auto) [place] # Seg Neutrophils % Seg Neuts % (Manual) Lymphocytes % (Manual) Monocytes % (Manual) Seg Neutrophils # Seg Neutrophils # Man Lymphocytes # (Manual) Monocytes # (Manual) PT INR APTT Heparin Anti-Xa Level POC ABG pH POC ABG pCO2 POC ABG pO2 POC Potassium POC Chloride Sodium Potassium Chloride Carbon Dioxide BUN Creatinine Glucose POC Glucose 173 H 158 H 108 H Lactic Acid Calcium Phosphorus Total Bilirubin AST ALT Total Creatine Kinase CK-MB (CK-2) Troponin T Total Protein Albumin Prealbumin HDL Cholesterol Salicylates Acetaminophen Crossmatch 10/14/18 10/15/18 10/15/18 21:54 02:12 04:19 WBC RBC Hgb POC Hgb Hct POC Hct MCV MCHC RDW Plt Count Lymph % (Auto) [place] % (Auto) [place] # Seg Neutrophils % Seg Neuts % (Manual) Lymphocytes % (Manual) Monocytes % (Manual) Seg Neutrophils # Seg Neutrophils # Man Lymphocytes # (Manual) Monocytes # (Manual) PT INR APTT Heparin Anti-Xa Level POC ABG pH 7.491 H POC ABG pCO2 45.1 H POC ABG pO2 POC Potassium POC Chloride Sodium Potassium Chloride Carbon Dioxide BUN Creatinine Glucose POC Glucose 110 H 164 H Lactic Acid Calcium Phosphorus Total Bilirubin AST ALT Total Creatine Kinase CK-MB (CK-2) Troponin T Total Protein Albumin Prealbumin HDL Cholesterol Salicylates Acetaminophen Crossmatch 10/15/18 10/15/18 10/15/18 04:55 05:43 06:20 WBC RBC Hgb 11.7 L POC Hgb Hct 34.7 L POC Hct MCV MCHC RDW Plt Count Lymph % (Auto) [place] % (Auto) [place] # Seg Neutrophils % Seg Neuts % (Manual) Lymphocytes % (Manual) Monocytes % (Manual) Seg Neutrophils # Seg Neutrophils # Man Lymphocytes # (Manual) Monocytes # (Manual) PT INR APTT Heparin Anti-Xa Level POC ABG pH POC ABG pCO2 47.3 H POC ABG pO2 78 L POC Potassium POC Chloride Sodium Potassium Chloride Carbon Dioxide BUN Creatinine Glucose POC Glucose 250 H Lactic Acid Calcium Phosphorus Total Bilirubin AST ALT Total Creatine Kinase CK-MB (CK-2) Troponin T Total Protein Albumin Prealbumin HDL Cholesterol Salicylates Acetaminophen Crossmatch 10/15/18 10/15/18 10/15/18 12:00 12:00 12:11 WBC RBC Hgb 11.5 L POC Hgb Hct 34.0 L POC Hct MCV MCHC RDW Plt Count Lymph % (Auto) [place] % (Auto) [place] # Seg Neutrophils % Seg Neuts % (Manual) Lymphocytes % (Manual) Monocytes % (Manual) Seg Neutrophils # Seg Neutrophils # Man Lymphocytes # (Manual) Monocytes # (Manual) PT INR APTT Heparin Anti-Xa Level POC ABG pH POC ABG pCO2 POC ABG pO2 POC Potassium POC Chloride Sodium 147 H Potassium Chloride 108.5 H Carbon Dioxide BUN Creatinine 0.7 L Glucose 209 H POC Glucose 197 H Lactic Acid Calcium 7.3 L Phosphorus Total Bilirubin AST ALT Total Creatine Kinase CK-MB (CK-2) Troponin T Total Protein Albumin Prealbumin HDL Cholesterol Salicylates Acetaminophen Crossmatch 10/15/18 10/15/18 10/15/18 15:48 18:34 21:29 WBC RBC Hgb POC Hgb Hct POC Hct MCV MCHC RDW Plt Count Lymph % (Auto) [place] % (Auto) [place] # Seg Neutrophils % Seg Neuts % (Manual) Lymphocytes % (Manual) Monocytes % (Manual) Seg Neutrophils # Seg Neutrophils # Man Lymphocytes # (Manual) Monocytes # (Manual) PT INR APTT Heparin Anti-Xa Level POC ABG pH POC ABG pCO2 POC ABG pO2 POC Potassium POC Chloride Sodium Potassium Chloride Carbon Dioxide BUN Creatinine Glucose POC Glucose 220 H 249 H 209 H Lactic Acid Calcium Phosphorus Total Bilirubin AST ALT Total Creatine Kinase CK-MB (CK-2) Troponin T Total Protein Albumin Prealbumin HDL Cholesterol Salicylates Acetaminophen Crossmatch 10/16/18 10/16/18 10/16/18 02:16 03:50 05:57 WBC RBC Hgb POC Hgb Hct POC Hct MCV MCHC RDW Plt Count Lymph % (Auto) [place] % (Auto) [place] # Seg Neutrophils % Seg Neuts % (Manual) Lymphocytes % (Manual) Monocytes % (Manual) Seg Neutrophils # Seg Neutrophils # Man Lymphocytes # (Manual) Monocytes # (Manual) PT INR APTT Heparin Anti-Xa Level POC ABG pH POC ABG pCO2 55.8 H POC ABG pO2 POC Potassium POC Chloride Sodium Potassium Chloride Carbon Dioxide BUN Creatinine Glucose POC Glucose 110 H 209 H Lactic Acid Calcium Phosphorus Total Bilirubin AST ALT Total Creatine Kinase CK-MB (CK-2) Troponin T Total Protein Albumin Prealbumin HDL Cholesterol Salicylates Acetaminophen Crossmatch 10/16/18 10/16/18 10/16/18 10:51 12:51 15:01 WBC RBC Hgb POC Hgb Hct POC Hct MCV MCHC RDW Plt Count Lymph % (Auto) [place] % (Auto) [place] # Seg Neutrophils % Seg Neuts % (Manual) Lymphocytes % (Manual) Monocytes % (Manual) Seg Neutrophils # Seg Neutrophils # Man Lymphocytes # (Manual) Monocytes # (Manual) PT INR APTT Heparin Anti-Xa Level POC ABG pH POC ABG pCO2 48.9 H POC ABG pO2 POC Potassium POC Chloride Sodium Potassium Chloride Carbon Dioxide BUN Creatinine Glucose POC Glucose 198 H 196 H Lactic Acid Calcium Phosphorus Total Bilirubin AST ALT Total Creatine Kinase CK-MB (CK-2) Troponin T Total Protein Albumin Prealbumin HDL Cholesterol Salicylates Acetaminophen Crossmatch 10/16/18 10/16/18 10/17/18 17:34 21:59 02:17 WBC RBC Hgb POC Hgb Hct POC Hct MCV MCHC RDW Plt Count Lymph % (Auto) [place] % (Auto) [place] # Seg Neutrophils % Seg Neuts % (Manual) Lymphocytes % (Manual) Monocytes % (Manual) Seg Neutrophils # Seg Neutrophils # Man Lymphocytes # (Manual) Monocytes # (Manual) PT INR APTT Heparin Anti-Xa Level POC ABG pH POC ABG pCO2 POC ABG pO2 POC Potassium POC Chloride Sodium Potassium Chloride Carbon Dioxide BUN Creatinine Glucose POC Glucose 179 H 139 H 135 H Lactic Acid Calcium Phosphorus Total Bilirubin AST ALT Total Creatine Kinase CK-MB (CK-2) Troponin T Total Protein Albumin Prealbumin HDL Cholesterol Salicylates Acetaminophen Crossmatch 10/17/18 10/17/18 10/17/18 05:40 05:47 10:18 WBC RBC Hgb 11.3 L POC Hgb Hct 33.2 L POC Hct MCV MCHC RDW Plt Count Lymph % (Auto) [place] % (Auto) [place] # Seg Neutrophils % Seg Neuts % (Manual) Lymphocytes % (Manual) Monocytes % (Manual) Seg Neutrophils # Seg Neutrophils # Man Lymphocytes # (Manual) Monocytes # (Manual) PT INR APTT Heparin Anti-Xa Level POC ABG pH POC ABG pCO2 POC ABG pO2 POC Potassium POC Chloride Sodium Potassium Chloride Carbon Dioxide BUN Creatinine Glucose POC Glucose 125 H 139 H Lactic Acid Calcium Phosphorus Total Bilirubin AST ALT Total Creatine Kinase CK-MB (CK-2) Troponin T Total Protein Albumin Prealbumin HDL Cholesterol Salicylates Acetaminophen Crossmatch 10/17/18 10/18/18 10/18/18 23:11 08:49 11:31 WBC RBC Hgb POC Hgb Hct POC Hct MCV MCHC RDW Plt Count Lymph % (Auto) [place] % (Auto) [place] # Seg Neutrophils % Seg Neuts % (Manual) Lymphocytes % (Manual) Monocytes % (Manual) Seg Neutrophils # Seg Neutrophils # Man Lymphocytes # (Manual) Monocytes # (Manual) PT INR APTT Heparin Anti-Xa Level POC ABG pH POC ABG pCO2 POC ABG pO2 POC Potassium POC Chloride Sodium Potassium Chloride Carbon Dioxide BUN Creatinine Glucose POC Glucose 165 H 125 H 182 H Lactic Acid Calcium Phosphorus Total Bilirubin AST ALT Total Creatine Kinase CK-MB (CK-2) Troponin T Total Protein Albumin Prealbumin HDL Cholesterol Salicylates Acetaminophen Crossmatch 10/18/18 10/18/18 10/19/18 16:12 21:02 00:28 WBC RBC Hgb 11.4 L POC Hgb Hct 33.6 L POC Hct MCV MCHC RDW Plt Count Lymph % (Auto) [place] % (Auto) 14.0 H [place] # 1.2 H Seg Neutrophils % Seg Neuts % (Manual) Lymphocytes % (Manual) Monocytes % (Manual) Seg Neutrophils # Seg Neutrophils # Man Lymphocytes # (Manual) Monocytes # (Manual) PT INR APTT Heparin Anti-Xa Level POC ABG pH POC ABG pCO2 POC ABG pO2 POC Potassium POC Chloride Sodium Potassium Chloride Carbon Dioxide BUN Creatinine Glucose POC Glucose 168 H 324 H Lactic Acid Calcium Phosphorus Total Bilirubin AST ALT Total Creatine Kinase CK-MB (CK-2) Troponin T Total Protein Albumin Prealbumin HDL Cholesterol Salicylates Acetaminophen Crossmatch 10/19/18 10/19/18 10/19/18 04:57 04:57 07:32 WBC RBC Hgb 11.7 L POC Hgb Hct 34.0 L POC Hct MCV MCHC RDW Plt Count Lymph % (Auto) [place] % (Auto) [place] # Seg Neutrophils % Seg Neuts % (Manual) Lymphocytes % (Manual) Monocytes % (Manual) Seg Neutrophils # Seg Neutrophils # Man Lymphocytes # (Manual) Monocytes # (Manual) PT INR APTT Heparin Anti-Xa Level POC ABG pH POC ABG pCO2 POC ABG pO2 POC Potassium POC Chloride Sodium Potassium 3.5 L Chloride 108.6 H Carbon Dioxide BUN Creatinine 0.6 L Glucose POC Glucose 159 H Lactic Acid Calcium 7.9 L Phosphorus Total Bilirubin AST ALT Total Creatine Kinase CK-MB (CK-2) Troponin T Total Protein Albumin Prealbumin HDL Cholesterol Salicylates Acetaminophen Crossmatch 10/19/18 10/19/18 10/20/18 16:25 20:59 12:04 WBC RBC Hgb POC Hgb Hct POC Hct MCV MCHC RDW Plt Count Lymph % (Auto) [place] % (Auto) [place] # Seg Neutrophils % Seg Neuts % (Manual) Lymphocytes % (Manual) Monocytes % (Manual) Seg Neutrophils # Seg Neutrophils # Man Lymphocytes # (Manual) Monocytes # (Manual) PT INR APTT Heparin Anti-Xa Level POC ABG pH POC ABG pCO2 POC ABG pO2 POC Potassium POC Chloride Sodium Potassium Chloride Carbon Dioxide BUN Creatinine Glucose POC Glucose 134 H 110 H 338 H Lactic Acid Calcium Phosphorus Total Bilirubin AST ALT Total Creatine Kinase CK-MB (CK-2) Troponin T Total Protein Albumin Prealbumin HDL Cholesterol Salicylates Acetaminophen Crossmatch 10/20/18 10/20/18 10/21/18 17:55 22:07 04:59 WBC RBC Hgb 11.6 L POC Hgb Hct 33.9 L POC Hct MCV MCHC RDW Plt Count Lymph % (Auto) [place] % (Auto) 9.7 H [place] # 0.9 H Seg Neutrophils % 70.7 H Seg Neuts % (Manual) Lymphocytes % (Manual) Monocytes % (Manual) Seg Neutrophils # Seg Neutrophils # Man Lymphocytes # (Manual) Monocytes # (Manual) PT INR APTT Heparin Anti-Xa Level POC ABG pH POC ABG pCO2 POC ABG pO2 POC Potassium POC Chloride Sodium Potassium Chloride Carbon Dioxide BUN Creatinine Glucose POC Glucose 146 H 164 H Lactic Acid Calcium Phosphorus Total Bilirubin AST ALT Total Creatine Kinase CK-MB (CK-2) Troponin T Total Protein Albumin Prealbumin HDL Cholesterol Salicylates Acetaminophen Crossmatch 10/21/18 10/21/18 10/21/18 04:59 07:52 11:39 WBC RBC Hgb POC Hgb Hct POC Hct MCV MCHC RDW Plt Count Lymph % (Auto) [place] % (Auto) [place] # Seg Neutrophils % Seg Neuts % (Manual) Lymphocytes % (Manual) Monocytes % (Manual) Seg Neutrophils # Seg Neutrophils # Man Lymphocytes # (Manual) Monocytes # (Manual) PT INR APTT Heparin Anti-Xa Level POC ABG pH POC ABG pCO2 POC ABG pO2 POC Potassium POC Chloride Sodium Potassium 3.5 L Chloride 107.1 H Carbon Dioxide BUN Creatinine 0.5 L Glucose 158 H POC Glucose 142 H 194 H Lactic Acid Calcium 7.5 L Phosphorus Total Bilirubin AST ALT Total Creatine Kinase CK-MB (CK-2) Troponin T Total Protein 5.6 L Albumin 2.0 L Prealbumin HDL Cholesterol Salicylates Acetaminophen Crossmatch 10/21/18 10/21/18 10/22/18 17:05 20:37 05:38 WBC RBC 3.48 L Hgb 10.8 L POC Hgb Hct 31.7 L POC Hct MCV MCHC RDW Plt Count 458 H Lymph % (Auto) [place] % (Auto) 10.5 H [place] # Seg Neutrophils % Seg Neuts % (Manual) Lymphocytes % (Manual) Monocytes % (Manual) Seg Neutrophils # Seg Neutrophils # Man Lymphocytes # (Manual) Monocytes # (Manual) PT INR APTT Heparin Anti-Xa Level POC ABG pH POC ABG pCO2 POC ABG pO2 POC Potassium POC Chloride Sodium Potassium Chloride Carbon Dioxide BUN Creatinine Glucose POC Glucose 167 H 182 H Lactic Acid Calcium Phosphorus Total Bilirubin AST ALT Total Creatine Kinase CK-MB (CK-2) Troponin T Total Protein Albumin Prealbumin HDL Cholesterol Salicylates Acetaminophen Crossmatch 10/22/18 10/22/18 10/22/18 05:38 07:48 12:08 WBC RBC Hgb POC Hgb Hct POC Hct MCV MCHC RDW Plt Count Lymph % (Auto) [place] % (Auto) [place] # Seg Neutrophils % Seg Neuts % (Manual) Lymphocytes % (Manual) Monocytes % (Manual) Seg Neutrophils # Seg Neutrophils # Man Lymphocytes # (Manual) Monocytes # (Manual) PT INR APTT Heparin Anti-Xa Level POC ABG pH POC ABG pCO2 POC ABG pO2 POC Potassium POC Chloride Sodium Potassium Chloride Carbon Dioxide BUN Creatinine 0.5 L Glucose 146 H POC Glucose 130 H 167 H Lactic Acid Calcium 7.8 L Phosphorus Total Bilirubin AST 41 H ALT Total Creatine Kinase CK-MB (CK-2) Troponin T Total Protein 5.5 L Albumin 2.1 L Prealbumin HDL Cholesterol Salicylates Acetaminophen Crossmatch 10/22/18 10/22/18 10/23/18 16:45 21:42 04:38 WBC RBC Hgb 11.7 L POC Hgb Hct 34.7 L POC Hct MCV MCHC RDW Plt Count 523 H Lymph % (Auto) [place] % (Auto) 8.7 H [place] # Seg Neutrophils % 71.6 H Seg Neuts % (Manual) Lymphocytes % (Manual) Monocytes % (Manual) Seg Neutrophils # Seg Neutrophils # Man Lymphocytes # (Manual) Monocytes # (Manual) PT INR APTT Heparin Anti-Xa Level POC ABG pH POC ABG pCO2 POC ABG pO2 POC Potassium POC Chloride Sodium Potassium Chloride Carbon Dioxide BUN Creatinine Glucose POC Glucose 113 H 134 H Lactic Acid Calcium Phosphorus Total Bilirubin AST ALT Total Creatine Kinase CK-MB (CK-2) Troponin T Total Protein Albumin Prealbumin HDL Cholesterol Salicylates Acetaminophen Crossmatch 10/23/18 10/23/18 10/23/18 04:38 07:56 11:15 WBC RBC Hgb POC Hgb Hct POC Hct MCV MCHC RDW Plt Count Lymph % (Auto) [place] % (Auto) [place] # Seg Neutrophils % Seg Neuts % (Manual) Lymphocytes % (Manual) Monocytes % (Manual) Seg Neutrophils # Seg Neutrophils # Man Lymphocytes # (Manual) Monocytes # (Manual) PT INR APTT Heparin Anti-Xa Level POC ABG pH POC ABG pCO2 POC ABG pO2 POC Potassium POC Chloride Sodium Potassium Chloride Carbon Dioxide BUN 7 L Creatinine 0.5 L Glucose 150 H POC Glucose 123 H 212 H Lactic Acid Calcium 8.0 L Phosphorus Total Bilirubin AST 55 H ALT Total Creatine Kinase CK-MB (CK-2) Troponin T Total Protein 6.2 L Albumin 2.3 L Prealbumin HDL Cholesterol Salicylates Acetaminophen Crossmatch 10/23/18 10/23/18 10/24/18 16:06 22:01 05:56 WBC 11.8 H RBC 3.64 L Hgb 11.2 L POC Hgb Hct 33.4 L POC Hct MCV MCHC RDW Plt Count 564 H Lymph % (Auto) 11.3 L [place] % (Auto) [place] # Seg Neutrophils % 80.2 H Seg Neuts % (Manual) Lymphocytes % (Manual) Monocytes % (Manual) Seg Neutrophils # 9.4 H Seg Neutrophils # Man Lymphocytes # (Manual) Monocytes # (Manual) PT INR APTT Heparin Anti-Xa Level POC ABG pH POC ABG pCO2 POC ABG pO2 POC Potassium POC Chloride Sodium Potassium Chloride Carbon Dioxide BUN Creatinine Glucose POC Glucose 152 H 235 H Lactic Acid Calcium Phosphorus Total Bilirubin AST ALT Total Creatine Kinase CK-MB (CK-2) Troponin T Total Protein Albumin Prealbumin HDL Cholesterol Salicylates Acetaminophen Crossmatch 10/24/18 10/24/18 10/24/18 05:56 07:52 11:58 WBC RBC Hgb POC Hgb Hct POC Hct MCV MCHC RDW Plt Count Lymph % (Auto) [place] % (Auto) [place] # Seg Neutrophils % Seg Neuts % (Manual) Lymphocytes % (Manual) Monocytes % (Manual) Seg Neutrophils # Seg Neutrophils # Man Lymphocytes # (Manual) Monocytes # (Manual) PT INR APTT Heparin Anti-Xa Level POC ABG pH POC ABG pCO2 POC ABG pO2 POC Potassium POC Chloride Sodium Potassium Chloride Carbon Dioxide BUN Creatinine 0.5 L Glucose 175 H POC Glucose 156 H 238 H Lactic Acid Calcium 8.0 L Phosphorus Total Bilirubin AST 44 H ALT Total Creatine Kinase CK-MB (CK-2) Troponin T Total Protein 6.2 L Albumin 2.4 L Prealbumin HDL Cholesterol Salicylates Acetaminophen Crossmatch 10/24/18 10/24/18 10/25/18 16:20 22:13 07:53 WBC RBC Hgb POC Hgb Hct POC Hct MCV MCHC RDW Plt Count Lymph % (Auto) [place] % (Auto) [place] # Seg Neutrophils % Seg Neuts % (Manual) Lymphocytes % (Manual) Monocytes % (Manual) Seg Neutrophils # Seg Neutrophils # Man Lymphocytes # (Manual) Monocytes # (Manual) PT INR APTT Heparin Anti-Xa Level POC ABG pH POC ABG pCO2 POC ABG pO2 POC Potassium POC Chloride Sodium Potassium Chloride Carbon Dioxide BUN Creatinine Glucose POC Glucose 60 L 261 H 211 H Lactic Acid Calcium Phosphorus Total Bilirubin AST ALT Total Creatine Kinase CK-MB (CK-2) Troponin T Total Protein Albumin Prealbumin HDL Cholesterol Salicylates Acetaminophen Crossmatch 10/25/18 10/25/18 10/25/18 11:03 16:02 22:45 WBC RBC Hgb POC Hgb Hct POC Hct MCV MCHC RDW Plt Count Lymph % (Auto) [place] % (Auto) [place] # Seg Neutrophils % Seg Neuts % (Manual) Lymphocytes % (Manual) Monocytes % (Manual) Seg Neutrophils # Seg Neutrophils # Man Lymphocytes # (Manual) Monocytes # (Manual) PT INR APTT Heparin Anti-Xa Level POC ABG pH POC ABG pCO2 POC ABG pO2 POC Potassium POC Chloride Sodium Potassium Chloride Carbon Dioxide BUN Creatinine Glucose POC Glucose 137 H 186 H 140 H Lactic Acid Calcium Phosphorus Total Bilirubin AST ALT Total Creatine Kinase CK-MB (CK-2) Troponin T Total Protein Albumin Prealbumin HDL Cholesterol Salicylates Acetaminophen Crossmatch 10/26/18 10/26/18 10/26/18 08:13 10:08 11:28 WBC RBC Hgb POC Hgb Hct POC Hct MCV MCHC RDW Plt Count Lymph % (Auto) [place] % (Auto) [place] # Seg Neutrophils % Seg Neuts % (Manual) Lymphocytes % (Manual) Monocytes % (Manual) Seg Neutrophils # Seg Neutrophils # Man Lymphocytes # (Manual) Monocytes # (Manual) PT INR APTT Heparin Anti-Xa Level POC ABG pH POC ABG pCO2 POC ABG pO2 POC Potassium POC Chloride Sodium Potassium Chloride Carbon Dioxide BUN Creatinine Glucose POC Glucose 144 H 110 H 201 H Lactic Acid Calcium Phosphorus Total Bilirubin AST ALT Total Creatine Kinase CK-MB (CK-2) Troponin T Total Protein Albumin Prealbumin HDL Cholesterol Salicylates Acetaminophen Crossmatch 10/26/18 10/26/18 10/27/18 16:36 22:29 07:34 WBC RBC Hgb POC Hgb Hct POC Hct MCV MCHC RDW Plt Count Lymph % (Auto) [place] % (Auto) [place] # Seg Neutrophils % Seg Neuts % (Manual) Lymphocytes % (Manual) Monocytes % (Manual) Seg Neutrophils # Seg Neutrophils # Man Lymphocytes # (Manual) Monocytes # (Manual) PT INR APTT Heparin Anti-Xa Level POC ABG pH POC ABG pCO2 POC ABG pO2 POC Potassium POC Chloride Sodium Potassium Chloride Carbon Dioxide BUN Creatinine Glucose POC Glucose 147 H 302 H 182 H Lactic Acid Calcium Phosphorus Total Bilirubin AST ALT Total Creatine Kinase CK-MB (CK-2) Troponin T Total Protein Albumin Prealbumin HDL Cholesterol Salicylates Acetaminophen Crossmatch 10/27/18 10/27/18 10/27/18 11:57 13:33 14:55 WBC RBC Hgb POC Hgb Hct POC Hct MCV MCHC RDW Plt Count 550 H Lymph % (Auto) [place] % (Auto) [place] # Seg Neutrophils % Seg Neuts % (Manual) Lymphocytes % (Manual) Monocytes % (Manual) Seg Neutrophils # Seg Neutrophils # Man Lymphocytes # (Manual) Monocytes # (Manual) PT INR APTT Heparin Anti-Xa Level POC ABG pH POC ABG pCO2 POC ABG pO2 POC Potassium POC Chloride Sodium Potassium Chloride Carbon Dioxide BUN Creatinine Glucose POC Glucose 209 H Lactic Acid Calcium Phosphorus Total Bilirubin AST ALT Total Creatine Kinase CK-MB (CK-2) Troponin T Total Protein Albumin Prealbumin HDL Cholesterol Salicylates Acetaminophen Crossmatch See Detail 10/27/18 10/27/18 10/28/18 17:09 21:45 07:45 WBC RBC Hgb POC Hgb Hct POC Hct MCV MCHC RDW Plt Count Lymph % (Auto) [place] % (Auto) [place] # Seg Neutrophils % Seg Neuts % (Manual) Lymphocytes % (Manual) Monocytes % (Manual) Seg Neutrophils # Seg Neutrophils # Man Lymphocytes # (Manual) Monocytes # (Manual) PT INR APTT Heparin Anti-Xa Level POC ABG pH POC ABG pCO2 POC ABG pO2 POC Potassium POC Chloride Sodium Potassium Chloride Carbon Dioxide BUN Creatinine Glucose POC Glucose 233 H 136 H 201 H Lactic Acid Calcium Phosphorus Total Bilirubin AST ALT Total Creatine Kinase CK-MB (CK-2) Troponin T Total Protein Albumin Prealbumin HDL Cholesterol Salicylates Acetaminophen Crossmatch 10/28/18 10/28/18 10/28/18 11:17 16:34 19:51 WBC RBC Hgb POC Hgb Hct POC Hct MCV MCHC RDW Plt Count Lymph % (Auto) [place] % (Auto) [place] # Seg Neutrophils % Seg Neuts % (Manual) Lymphocytes % (Manual) Monocytes % (Manual) Seg Neutrophils # Seg Neutrophils # Man Lymphocytes # (Manual) Monocytes # (Manual) PT INR APTT Heparin Anti-Xa Level < 0.10 L POC ABG pH POC ABG pCO2 POC ABG pO2 POC Potassium POC Chloride Sodium Potassium Chloride Carbon Dioxide BUN Creatinine Glucose POC Glucose 116 H 168 H Lactic Acid Calcium Phosphorus Total Bilirubin AST ALT Total Creatine Kinase CK-MB (CK-2) Troponin T Total Protein Albumin Prealbumin HDL Cholesterol Salicylates Acetaminophen Crossmatch 10/28/18 10/29/18 10/29/18 21:52 07:11 07:11 WBC RBC Hgb POC Hgb Hct POC Hct MCV MCHC RDW Plt Count 470 H Lymph % (Auto) [place] % (Auto) [place] # Seg Neutrophils % Seg Neuts % (Manual) Lymphocytes % (Manual) Monocytes % (Manual) Seg Neutrophils # Seg Neutrophils # Man Lymphocytes # (Manual) Monocytes # (Manual) PT INR APTT Heparin Anti-Xa Level 0.13 L POC ABG pH POC ABG pCO2 POC ABG pO2 POC Potassium POC Chloride Sodium Potassium Chloride Carbon Dioxide BUN Creatinine Glucose POC Glucose 159 H Lactic Acid Calcium Phosphorus Total Bilirubin AST ALT Total Creatine Kinase CK-MB (CK-2) Troponin T Total Protein Albumin Prealbumin HDL Cholesterol Salicylates Acetaminophen Crossmatch 10/29/18 10/29/18 10/29/18 07:11 07:43 11:29 WBC RBC Hgb POC Hgb Hct POC Hct MCV MCHC RDW Plt Count Lymph % (Auto) [place] % (Auto) [place] # Seg Neutrophils % Seg Neuts % (Manual) Lymphocytes % (Manual) Monocytes % (Manual) Seg Neutrophils # Seg Neutrophils # Man Lymphocytes # (Manual) Monocytes # (Manual) PT INR APTT Heparin Anti-Xa Level POC ABG pH POC ABG pCO2 POC ABG pO2 POC Potassium POC Chloride Sodium Potassium Chloride Carbon Dioxide BUN 7 L Creatinine 0.5 L Glucose 122 H POC Glucose 147 H 165 H Lactic Acid Calcium 8.2 L Phosphorus Total Bilirubin AST ALT Total Creatine Kinase CK-MB (CK-2) Troponin T Total Protein Albumin Prealbumin HDL Cholesterol Salicylates Acetaminophen Crossmatch 10/29/18 10/29/18 10/30/18 19:50 22:11 00:11 WBC RBC Hgb POC Hgb Hct POC Hct MCV MCHC RDW Plt Count Lymph % (Auto) [place] % (Auto) [place] # Seg Neutrophils % Seg Neuts % (Manual) Lymphocytes % (Manual) Monocytes % (Manual) Seg Neutrophils # Seg Neutrophils # Man Lymphocytes # (Manual) Monocytes # (Manual) PT INR APTT Heparin Anti-Xa Level 0.25 L POC ABG pH POC ABG pCO2 POC ABG pO2 POC Potassium POC Chloride Sodium Potassium Chloride Carbon Dioxide BUN Creatinine Glucose POC Glucose 166 H 173 H Lactic Acid Calcium Phosphorus Total Bilirubin AST ALT Total Creatine Kinase CK-MB (CK-2) Troponin T Total Protein Albumin Prealbumin HDL Cholesterol Salicylates Acetaminophen Crossmatch 10/30/18 10/30/18 10/30/18 04:22 04:22 07:47 WBC 27.0 H RBC 3.16 L Hgb 10.0 L POC Hgb Hct 28.8 L D POC Hct MCV MCHC 35 H RDW Plt Count Lymph % (Auto) [place] % (Auto) [place] # Seg Neutrophils % Seg Neuts % (Manual) Lymphocytes % (Manual) 1.5 L Monocytes % (Manual) Seg Neutrophils # Seg Neutrophils # Man 18.6 H Lymphocytes # (Manual) 0.4 L Monocytes # (Manual) PT INR APTT Heparin Anti-Xa Level POC ABG pH POC ABG pCO2 POC ABG pO2 POC Potassium POC Chloride Sodium Potassium Chloride Carbon Dioxide BUN Creatinine Glucose 224 H POC Glucose 168 H Lactic Acid Calcium 7.5 L Phosphorus Total Bilirubin AST ALT Total Creatine Kinase CK-MB (CK-2) Troponin T Total Protein Albumin Prealbumin HDL Cholesterol Salicylates Acetaminophen Crossmatch 10/30/18 10/30/18 10/30/18 07:55 11:20 16:41 WBC RBC Hgb POC Hgb Hct POC Hct MCV MCHC RDW Plt Count Lymph % (Auto) [place] % (Auto) [place] # Seg Neutrophils % Seg Neuts % (Manual) Lymphocytes % (Manual) Monocytes % (Manual) Seg Neutrophils # Seg Neutrophils # Man Lymphocytes # (Manual) Monocytes # (Manual) PT INR APTT Heparin Anti-Xa Level < 0.10 L POC ABG pH POC ABG pCO2 POC ABG pO2 POC Potassium POC Chloride Sodium Potassium Chloride Carbon Dioxide BUN Creatinine Glucose POC Glucose 165 H 142 H Lactic Acid Calcium Phosphorus Total Bilirubin AST ALT Total Creatine Kinase CK-MB (CK-2) Troponin T Total Protein Albumin Prealbumin HDL Cholesterol Salicylates Acetaminophen Crossmatch 10/30/18 10/30/18 10/31/18 20:51 21:20 05:21 WBC RBC Hgb 9.0 L POC Hgb Hct 26.6 L POC Hct MCV MCHC RDW Plt Count Lymph % (Auto) [place] % (Auto) [place] # Seg Neutrophils % Seg Neuts % (Manual) Lymphocytes % (Manual) Monocytes % (Manual) Seg Neutrophils # Seg Neutrophils # Man Lymphocytes # (Manual) Monocytes # (Manual) PT INR APTT Heparin Anti-Xa Level < 0.10 L POC ABG pH POC ABG pCO2 POC ABG pO2 POC Potassium POC Chloride Sodium Potassium Chloride Carbon Dioxide BUN Creatinine Glucose POC Glucose 136 H Lactic Acid Calcium Phosphorus Total Bilirubin AST ALT Total Creatine Kinase CK-MB (CK-2) Troponin T Total Protein Albumin Prealbumin HDL Cholesterol Salicylates Acetaminophen Crossmatch 10/31/18 10/31/18 10/31/18 08:07 10:19 12:12 WBC RBC Hgb POC Hgb Hct POC Hct MCV MCHC RDW Plt Count Lymph % (Auto) [place] % (Auto) [place] # Seg Neutrophils % Seg Neuts % (Manual) Lymphocytes % (Manual) Monocytes % (Manual) Seg Neutrophils # Seg Neutrophils # Man Lymphocytes # (Manual) Monocytes # (Manual) PT INR APTT Heparin Anti-Xa Level POC ABG pH POC ABG pCO2 POC ABG pO2 POC Potassium POC Chloride Sodium Potassium Chloride Carbon Dioxide BUN Creatinine Glucose POC Glucose 155 H 194 H Lactic Acid Calcium Phosphorus Total Bilirubin AST ALT Total Creatine Kinase CK-MB (CK-2) Troponin T Total Protein Albumin Prealbumin HDL Cholesterol Salicylates Acetaminophen Crossmatch See Detail 10/31/18 10/31/18 10/31/18 16:07 16:56 21:14 WBC RBC Hgb POC Hgb Hct POC Hct MCV MCHC RDW Plt Count Lymph % (Auto) [place] % (Auto) [place] # Seg Neutrophils % Seg Neuts % (Manual) Lymphocytes % (Manual) Monocytes % (Manual) Seg Neutrophils # Seg Neutrophils # Man Lymphocytes # (Manual) Monocytes # (Manual) PT INR APTT Heparin Anti-Xa Level 1.20 H POC ABG pH POC ABG pCO2 POC ABG pO2 POC Potassium POC Chloride Sodium Potassium Chloride Carbon Dioxide BUN Creatinine Glucose POC Glucose 354 H 234 H Lactic Acid Calcium Phosphorus Total Bilirubin AST ALT Total Creatine Kinase CK-MB (CK-2) Troponin T Total Protein Albumin Prealbumin HDL Cholesterol Salicylates Acetaminophen Crossmatch 11/01/18 11/01/18 11/01/18 00:52 05:52 05:52 WBC 12.5 H RBC 2.95 L Hgb 9.1 L POC Hgb Hct 27.4 L POC Hct MCV MCHC RDW 15.3 H Plt Count Lymph % (Auto) [place] % (Auto) [place] # Seg Neutrophils % Seg Neuts % (Manual) Lymphocytes % (Manual) Monocytes % (Manual) Seg Neutrophils # Seg Neutrophils # Man Lymphocytes # (Manual) Monocytes # (Manual) PT INR APTT Heparin Anti-Xa Level 1.53 H POC ABG pH POC ABG pCO2 POC ABG pO2 POC Potassium POC Chloride Sodium Potassium Chloride Carbon Dioxide BUN Creatinine 0.5 L Glucose 169 H POC Glucose Lactic Acid Calcium 8.3 L Phosphorus Total Bilirubin AST ALT Total Creatine Kinase CK-MB (CK-2) Troponin T Total Protein 6.2 L Albumin 2.3 L Prealbumin HDL Cholesterol Salicylates Acetaminophen Crossmatch 11/01/18 11/01/18 11/01/18 08:17 10:57 11:38 WBC RBC Hgb POC Hgb Hct POC Hct MCV MCHC RDW Plt Count Lymph % (Auto) [place] % (Auto) [place] # Seg Neutrophils % Seg Neuts % (Manual) Lymphocytes % (Manual) Monocytes % (Manual) Seg Neutrophils # Seg Neutrophils # Man Lymphocytes # (Manual) Monocytes # (Manual) PT INR APTT Heparin Anti-Xa Level 1.05 H POC ABG pH POC ABG pCO2 POC ABG pO2 POC Potassium POC Chloride Sodium Potassium Chloride Carbon Dioxide BUN Creatinine Glucose POC Glucose 158 H 133 H Lactic Acid Calcium Phosphorus Total Bilirubin AST ALT Total Creatine Kinase CK-MB (CK-2) Troponin T Total Protein Albumin Prealbumin HDL Cholesterol Salicylates Acetaminophen Crossmatch 11/01/18 11/01/18 11/02/18 17:08 21:23 04:56 WBC RBC 3.02 L Hgb 9.5 L POC Hgb Hct 28.0 L POC Hct MCV MCHC RDW Plt Count Lymph % (Auto) [place] % (Auto) [place] # Seg Neutrophils % Seg Neuts % (Manual) Lymphocytes % (Manual) Monocytes % (Manual) Seg Neutrophils # Seg Neutrophils # Man Lymphocytes # (Manual) Monocytes # (Manual) PT INR APTT Heparin Anti-Xa Level POC ABG pH POC ABG pCO2 POC ABG pO2 POC Potassium POC Chloride Sodium Potassium Chloride Carbon Dioxide BUN Creatinine Glucose POC Glucose 156 H 213 H Lactic Acid Calcium Phosphorus Total Bilirubin AST ALT Total Creatine Kinase CK-MB (CK-2) Troponin T Total Protein Albumin Prealbumin HDL Cholesterol Salicylates Acetaminophen Crossmatch 11/02/18 11/02/18 11/02/18 04:56 08:38 11:23 WBC RBC Hgb POC Hgb Hct POC Hct MCV MCHC RDW Plt Count Lymph % (Auto) [place] % (Auto) [place] # Seg Neutrophils % Seg Neuts % (Manual) Lymphocytes % (Manual) Monocytes % (Manual) Seg Neutrophils # Seg Neutrophils # Man Lymphocytes # (Manual) Monocytes # (Manual) PT INR APTT Heparin Anti-Xa Level POC ABG pH POC ABG pCO2 POC ABG pO2 POC Potassium POC Chloride Sodium Potassium Chloride Carbon Dioxide BUN Creatinine 0.5 L Glucose 141 H POC Glucose 173 H 272 H Lactic Acid Calcium 8.2 L Phosphorus Total Bilirubin AST 43 H ALT Total Creatine Kinase CK-MB (CK-2) Troponin T Total Protein 6.1 L Albumin 2.2 L Prealbumin HDL Cholesterol Salicylates Acetaminophen Crossmatch 11/02/18 11/03/18 11/03/18 22:16 04:38 04:38 WBC 11.6 H RBC 3.20 L Hgb 9.8 L POC Hgb Hct 29.2 L POC Hct MCV MCHC RDW Plt Count Lymph % (Auto) [place] % (Auto) [place] # Seg Neutrophils % Seg Neuts % (Manual) Lymphocytes % (Manual) Monocytes % (Manual) Seg Neutrophils # Seg Neutrophils # Man Lymphocytes # (Manual) Monocytes # (Manual) PT INR APTT Heparin Anti-Xa Level POC ABG pH POC ABG pCO2 POC ABG pO2 POC Potassium POC Chloride Sodium 135 L Potassium Chloride Carbon Dioxide BUN Creatinine 0.5 L Glucose 160 H POC Glucose 182 H Lactic Acid Calcium Phosphorus Total Bilirubin AST 46 H ALT Total Creatine Kinase CK-MB (CK-2) Troponin T Total Protein Albumin 2.3 L Prealbumin HDL Cholesterol Salicylates Acetaminophen Crossmatch 11/03/18 11/03/18 11/03/18 07:52 10:59 18:10 WBC RBC Hgb POC Hgb Hct POC Hct MCV MCHC RDW Plt Count Lymph % (Auto) [place] % (Auto) [place] # Seg Neutrophils % Seg Neuts % (Manual) Lymphocytes % (Manual) Monocytes % (Manual) Seg Neutrophils # Seg Neutrophils # Man Lymphocytes # (Manual) Monocytes # (Manual) PT INR APTT Heparin Anti-Xa Level POC ABG pH POC ABG pCO2 POC ABG pO2 POC Potassium POC Chloride Sodium Potassium Chloride Carbon Dioxide BUN Creatinine Glucose POC Glucose 180 H 159 H 169 H Lactic Acid Calcium Phosphorus Total Bilirubin AST ALT Total Creatine Kinase CK-MB (CK-2) Troponin T Total Protein Albumin Prealbumin HDL Cholesterol Salicylates Acetaminophen Crossmatch 11/04/18 11/04/18 11/04/18 07:46 11:42 15:45 WBC 11.5 H RBC 3.41 L Hgb 10.4 L POC Hgb Hct 30.8 L POC Hct MCV MCHC RDW Plt Count Lymph % (Auto) [place] % (Auto) [place] # Seg Neutrophils % Seg Neuts % (Manual) Lymphocytes % (Manual) Monocytes % (Manual) Seg Neutrophils # Seg Neutrophils # Man Lymphocytes # (Manual) Monocytes # (Manual) PT INR APTT Heparin Anti-Xa Level POC ABG pH POC ABG pCO2 POC ABG pO2 POC Potassium POC Chloride Sodium Potassium Chloride Carbon Dioxide BUN Creatinine Glucose POC Glucose 160 H 149 H Lactic Acid Calcium Phosphorus Total Bilirubin AST ALT Total Creatine Kinase CK-MB (CK-2) Troponin T Total Protein Albumin Prealbumin HDL Cholesterol Salicylates Acetaminophen Crossmatch 11/04/18 11/04/18 11/04/18 15:45 15:45 16:41 WBC RBC Hgb POC Hgb Hct POC Hct MCV MCHC RDW Plt Count Lymph % (Auto) [place] % (Auto) [place] # Seg Neutrophils % Seg Neuts % (Manual) Lymphocytes % (Manual) Monocytes % (Manual) Seg Neutrophils # Seg Neutrophils # Man Lymphocytes # (Manual) Monocytes # (Manual) PT INR APTT Heparin Anti-Xa Level POC ABG pH POC ABG pCO2 POC ABG pO2 POC Potassium POC Chloride Sodium 133 L Potassium Chloride 95.6 L Carbon Dioxide BUN Creatinine 0.5 L Glucose 163 H POC Glucose 157 H Lactic Acid Calcium Phosphorus Total Bilirubin AST ALT Total Creatine Kinase CK-MB (CK-2) Troponin T Total Protein Albumin 2.6 L Prealbumin 0.073 L HDL Cholesterol Salicylates Acetaminophen Crossmatch 11/04/18 11/05/18 11/05/18 21:59 08:51 12:13 WBC RBC Hgb POC Hgb Hct POC Hct MCV MCHC RDW Plt Count Lymph % (Auto) [place] % (Auto) [place] # Seg Neutrophils % Seg Neuts % (Manual) Lymphocytes % (Manual) Monocytes % (Manual) Seg Neutrophils # Seg Neutrophils # Man Lymphocytes # (Manual) Monocytes # (Manual) PT INR APTT Heparin Anti-Xa Level POC ABG pH POC ABG pCO2 POC ABG pO2 POC Potassium POC Chloride Sodium Potassium Chloride Carbon Dioxide BUN Creatinine Glucose POC Glucose 195 H 187 H 149 H Lactic Acid Calcium Phosphorus Total Bilirubin AST ALT Total Creatine Kinase CK-MB (CK-2) Troponin T Total Protein Albumin Prealbumin HDL Cholesterol Salicylates Acetaminophen Crossmatch 11/05/18 11/05/18 11/06/18 17:15 20:37 07:00 WBC RBC 3.48 L Hgb 11.2 L POC Hgb Hct 31.8 L POC Hct MCV MCHC 35 H RDW Plt Count Lymph % (Auto) [place] % (Auto) [place] # Seg Neutrophils % Seg Neuts % (Manual) Lymphocytes % (Manual) Monocytes % (Manual) Seg Neutrophils # Seg Neutrophils # Man Lymphocytes # (Manual) Monocytes # (Manual) PT INR APTT Heparin Anti-Xa Level POC ABG pH POC ABG pCO2 POC ABG pO2 POC Potassium POC Chloride Sodium Potassium Chloride Carbon Dioxide BUN Creatinine Glucose POC Glucose 281 H 203 H Lactic Acid Calcium Phosphorus Total Bilirubin AST ALT Total Creatine Kinase CK-MB (CK-2) Troponin T Total Protein Albumin Prealbumin HDL Cholesterol Salicylates Acetaminophen Crossmatch 11/06/18 11/06/18 11/06/18 07:00 07:31 12:45 WBC RBC Hgb POC Hgb Hct POC Hct MCV MCHC RDW Plt Count Lymph % (Auto) [place] % (Auto) [place] # Seg Neutrophils % Seg Neuts % (Manual) Lymphocytes % (Manual) Monocytes % (Manual) Seg Neutrophils # Seg Neutrophils # Man Lymphocytes # (Manual) Monocytes # (Manual) PT INR APTT Heparin Anti-Xa Level POC ABG pH POC ABG pCO2 POC ABG pO2 POC Potassium POC Chloride Sodium 135 L Potassium Chloride 97.3 L Carbon Dioxide BUN Creatinine 0.5 L Glucose 163 H POC Glucose 215 H 183 H Lactic Acid Calcium Phosphorus Total Bilirubin AST ALT Total Creatine Kinase CK-MB (CK-2) Troponin T Total Protein Albumin Prealbumin HDL Cholesterol Salicylates Acetaminophen Crossmatch 11/06/18 11/06/18 11/07/18 17:47 21:05 07:42 WBC RBC Hgb POC Hgb Hct POC Hct MCV MCHC RDW Plt Count Lymph % (Auto) [place] % (Auto) [place] # Seg Neutrophils % Seg Neuts % (Manual) Lymphocytes % (Manual) Monocytes % (Manual) Seg Neutrophils # Seg Neutrophils # Man Lymphocytes # (Manual) Monocytes # (Manual) PT INR APTT Heparin Anti-Xa Level POC ABG pH POC ABG pCO2 POC ABG pO2 POC Potassium POC Chloride Sodium Potassium Chloride Carbon Dioxide BUN Creatinine Glucose POC Glucose 141 H 223 H 168 H Lactic Acid Calcium Phosphorus Total Bilirubin AST ALT Total Creatine Kinase CK-MB (CK-2) Troponin T Total Protein Albumin Prealbumin HDL Cholesterol Salicylates Acetaminophen Crossmatch 11/07/18 11/07/18 11/07/18 11:37 16:21 21:39 WBC RBC Hgb POC Hgb Hct POC Hct MCV MCHC RDW Plt Count Lymph % (Auto) [place] % (Auto) [place] # Seg Neutrophils % Seg Neuts % (Manual) Lymphocytes % (Manual) Monocytes % (Manual) Seg Neutrophils # Seg Neutrophils # Man Lymphocytes # (Manual) Monocytes # (Manual) PT INR APTT Heparin Anti-Xa Level POC ABG pH POC ABG pCO2 POC ABG pO2 POC Potassium POC Chloride Sodium Potassium Chloride Carbon Dioxide BUN Creatinine Glucose POC Glucose 120 H 169 H 127 H Lactic Acid Calcium Phosphorus Total Bilirubin AST ALT Total Creatine Kinase CK-MB (CK-2) Troponin T Total Protein Albumin Prealbumin HDL Cholesterol Salicylates Acetaminophen Crossmatch 11/08/18 11/08/18 11/08/18 11:48 16:32 16:32 WBC 11.3 H RBC 3.40 L Hgb 10.3 L POC Hgb Hct 30.5 L POC Hct MCV MCHC RDW Plt Count 465 H Lymph % (Auto) [place] % (Auto) 9.3 H [place] # 1.0 H Seg Neutrophils % 73.1 H Seg Neuts % (Manual) Lymphocytes % (Manual) Monocytes % (Manual) Seg Neutrophils # 8.3 H Seg Neutrophils # Man Lymphocytes # (Manual) Monocytes # (Manual) PT INR APTT Heparin Anti-Xa Level POC ABG pH POC ABG pCO2 POC ABG pO2 POC Potassium POC Chloride Sodium 133 L Potassium Chloride 96.7 L Carbon Dioxide BUN Creatinine 0.4 L Glucose 187 H POC Glucose 144 H Lactic Acid Calcium Phosphorus Total Bilirubin AST ALT Total Creatine Kinase CK-MB (CK-2) Troponin T Total Protein Albumin Prealbumin HDL Cholesterol Salicylates Acetaminophen Crossmatch 11/08/18 11/09/18 11/09/18 16:52 01:48 06:06 WBC 12.7 H RBC 3.47 L Hgb 10.5 L POC Hgb Hct 31.5 L POC Hct MCV MCHC RDW Plt Count 452 H Lymph % (Auto) [place] % (Auto) 10.9 H [place] # 1.4 H Seg Neutrophils % Seg Neuts % (Manual) Lymphocytes % (Manual) Monocytes % (Manual) Seg Neutrophils # 8.9 H Seg Neutrophils # Man Lymphocytes # (Manual) Monocytes # (Manual) PT INR APTT Heparin Anti-Xa Level POC ABG pH POC ABG pCO2 POC ABG pO2 POC Potassium POC Chloride Sodium Potassium Chloride Carbon Dioxide BUN Creatinine Glucose POC Glucose 220 H 146 H Lactic Acid Calcium Phosphorus Total Bilirubin AST ALT Total Creatine Kinase CK-MB (CK-2) Troponin T Total Protein Albumin Prealbumin HDL Cholesterol Salicylates Acetaminophen Crossmatch 11/09/18 11/09/18 11/09/18 06:06 07:36 12:28 WBC RBC Hgb POC Hgb Hct POC Hct MCV MCHC RDW Plt Count Lymph % (Auto) [place] % (Auto) [place] # Seg Neutrophils % Seg Neuts % (Manual) Lymphocytes % (Manual) Monocytes % (Manual) Seg Neutrophils # Seg Neutrophils # Man Lymphocytes # (Manual) Monocytes # (Manual) PT INR APTT Heparin Anti-Xa Level POC ABG pH POC ABG pCO2 POC ABG pO2 POC Potassium POC Chloride Sodium 129 L Potassium Chloride 94.5 L Carbon Dioxide BUN Creatinine 0.4 L Glucose 136 H POC Glucose 133 H 193 H Lactic Acid Calcium Phosphorus Total Bilirubin AST ALT Total Creatine Kinase CK-MB (CK-2) Troponin T Total Protein Albumin Prealbumin HDL Cholesterol Salicylates Acetaminophen Crossmatch 11/09/18 11/10/18 11/10/18 21:14 06:27 06:27 WBC RBC 3.50 L Hgb 10.7 L POC Hgb Hct 31.2 L POC Hct MCV MCHC RDW Plt Count 496 H Lymph % (Auto) [place] % (Auto) 11.8 H [place] # 1.2 H Seg Neutrophils % Seg Neuts % (Manual) Lymphocytes % (Manual) Monocytes % (Manual) Seg Neutrophils # Seg Neutrophils # Man Lymphocytes # (Manual) Monocytes # (Manual) PT INR APTT Heparin Anti-Xa Level POC ABG pH POC ABG pCO2 POC ABG pO2 POC Potassium POC Chloride Sodium 135 L Potassium Chloride 97.2 L Carbon Dioxide BUN Creatinine 0.4 L Glucose 137 H POC Glucose 125 H Lactic Acid Calcium Phosphorus Total Bilirubin AST ALT Total Creatine Kinase CK-MB (CK-2) Troponin T Total Protein Albumin Prealbumin HDL Cholesterol Salicylates Acetaminophen Crossmatch 11/10/18 11/10/18 11/10/18 09:01 17:47 22:10 WBC RBC Hgb POC Hgb Hct POC Hct MCV MCHC RDW Plt Count Lymph % (Auto) [place] % (Auto) [place] # Seg Neutrophils % Seg Neuts % (Manual) Lymphocytes % (Manual) Monocytes % (Manual) Seg Neutrophils # Seg Neutrophils # Man Lymphocytes # (Manual) Monocytes # (Manual) PT INR APTT Heparin Anti-Xa Level POC ABG pH POC ABG pCO2 POC ABG pO2 POC Potassium POC Chloride Sodium Potassium Chloride Carbon Dioxide BUN Creatinine Glucose POC Glucose 145 H 179 H 178 H Lactic Acid Calcium Phosphorus Total Bilirubin AST ALT Total Creatine Kinase CK-MB (CK-2) Troponin T Total Protein Albumin Prealbumin HDL Cholesterol Salicylates Acetaminophen Crossmatch 11/11/18 11/11/18 11/11/18 07:44 12:18 17:33 WBC RBC Hgb POC Hgb Hct POC Hct MCV MCHC RDW Plt Count Lymph % (Auto) [place] % (Auto) [place] # Seg Neutrophils % Seg Neuts % (Manual) Lymphocytes % (Manual) Monocytes % (Manual) Seg Neutrophils # Seg Neutrophils # Man Lymphocytes # (Manual) Monocytes # (Manual) PT INR APTT Heparin Anti-Xa Level POC ABG pH POC ABG pCO2 POC ABG pO2 POC Potassium POC Chloride Sodium Potassium Chloride Carbon Dioxide BUN Creatinine Glucose POC Glucose 112 H 206 H 148 H Lactic Acid Calcium Phosphorus Total Bilirubin AST ALT Total Creatine Kinase CK-MB (CK-2) Troponin T Total Protein Albumin Prealbumin HDL Cholesterol Salicylates Acetaminophen Crossmatch 11/11/18 11/12/18 11/12/18 21:29 08:01 11:42 WBC RBC Hgb POC Hgb Hct POC Hct MCV MCHC RDW Plt Count Lymph % (Auto) [place] % (Auto) [place] # Seg Neutrophils % Seg Neuts % (Manual) Lymphocytes % (Manual) Monocytes % (Manual) Seg Neutrophils # Seg Neutrophils # Man Lymphocytes # (Manual) Monocytes # (Manual) PT INR APTT Heparin Anti-Xa Level POC ABG pH POC ABG pCO2 POC ABG pO2 POC Potassium POC Chloride Sodium Potassium Chloride Carbon Dioxide BUN Creatinine Glucose POC Glucose 184 H 157 H 150 H Lactic Acid Calcium Phosphorus Total Bilirubin AST ALT Total Creatine Kinase CK-MB (CK-2) Troponin T Total Protein Albumin Prealbumin HDL Cholesterol Salicylates Acetaminophen Crossmatch 11/12/18 11/12/18 11/12/18 12:29 12:29 15:21 WBC RBC Hgb 10.7 L POC Hgb Hct 31.2 L POC Hct MCV MCHC RDW Plt Count 534 H Lymph % (Auto) [place] % (Auto) [place] # Seg Neutrophils % Seg Neuts % (Manual) Lymphocytes % (Manual) Monocytes % (Manual) Seg Neutrophils # Seg Neutrophils # Man Lymphocytes # (Manual) Monocytes # (Manual) PT 16.0 H INR 1.20 H APTT Heparin Anti-Xa Level 2.00 H POC ABG pH POC ABG pCO2 POC ABG pO2 POC Potassium POC Chloride Sodium Potassium Chloride Carbon Dioxide BUN Creatinine Glucose POC Glucose Lactic Acid Calcium Phosphorus Total Bilirubin AST ALT Total Creatine Kinase CK-MB (CK-2) Troponin T Total Protein Albumin Prealbumin HDL Cholesterol Salicylates Acetaminophen Crossmatch 11/12/18 11/12/18 11/12/18 17:00 17:29 20:13 WBC RBC Hgb POC Hgb Hct POC Hct MCV MCHC RDW Plt Count Lymph % (Auto) [place] % (Auto) [place] # Seg Neutrophils % Seg Neuts % (Manual) Lymphocytes % (Manual) Monocytes % (Manual) Seg Neutrophils # Seg Neutrophils # Man Lymphocytes # (Manual) Monocytes # (Manual) PT INR APTT Heparin Anti-Xa Level 1.97 H POC ABG pH POC ABG pCO2 POC ABG pO2 POC Potassium POC Chloride Sodium Potassium Chloride Carbon Dioxide BUN Creatinine Glucose POC Glucose 125 H Lactic Acid Calcium Phosphorus Total Bilirubin AST ALT Total Creatine Kinase CK-MB (CK-2) Troponin T Total Protein Albumin Prealbumin HDL Cholesterol Salicylates Acetaminophen Crossmatch See Detail 11/12/18 11/13/18 11/13/18 21:11 07:03 08:09 WBC RBC Hgb POC Hgb Hct POC Hct MCV MCHC RDW Plt Count Lymph % (Auto) [place] % (Auto) [place] # Seg Neutrophils % Seg Neuts % (Manual) Lymphocytes % (Manual) Monocytes % (Manual) Seg Neutrophils # Seg Neutrophils # Man Lymphocytes # (Manual) Monocytes # (Manual) PT INR APTT Heparin Anti-Xa Level 1.50 H POC ABG pH POC ABG pCO2 POC ABG pO2 POC Potassium POC Chloride Sodium Potassium Chloride Carbon Dioxide BUN Creatinine Glucose POC Glucose 128 H 137 H Lactic Acid Calcium Phosphorus Total Bilirubin AST ALT Total Creatine Kinase CK-MB (CK-2) Troponin T Total Protein Albumin Prealbumin HDL Cholesterol Salicylates Acetaminophen Crossmatch 11/13/18 11/13/18 11/13/18 15:05 15:36 19:19 WBC RBC Hgb POC Hgb 9.2 L Hct POC Hct 27 L MCV MCHC RDW Plt Count Lymph % (Auto) [place] % (Auto) [place] # Seg Neutrophils % Seg Neuts % (Manual) Lymphocytes % (Manual) Monocytes % (Manual) Seg Neutrophils # Seg Neutrophils # Man Lymphocytes # (Manual) Monocytes # (Manual) PT INR APTT Heparin Anti-Xa Level POC ABG pH POC ABG pCO2 POC ABG pO2 POC Potassium 5.3 H POC Chloride 97 L Sodium Potassium Chloride Carbon Dioxide BUN Creatinine Glucose POC Glucose 111 H 140 H Lactic Acid Calcium Phosphorus Total Bilirubin AST ALT Total Creatine Kinase CK-MB (CK-2) Troponin T Total Protein Albumin Prealbumin HDL Cholesterol Salicylates Acetaminophen Crossmatch 11/13/18 11/14/18 21:24 09:19 WBC RBC Hgb POC Hgb Hct POC Hct MCV MCHC RDW Plt Count Lymph % (Auto) [place] % (Auto) [place] # Seg Neutrophils % Seg Neuts % (Manual) Lymphocytes % (Manual) Monocytes % (Manual) Seg Neutrophils # Seg Neutrophils # Man Lymphocytes # (Manual) Monocytes # (Manual) PT INR APTT Heparin Anti-Xa Level POC ABG pH POC ABG pCO2 POC ABG pO2 POC Potassium POC Chloride Sodium Potassium Chloride Carbon Dioxide BUN Creatinine Glucose POC Glucose 164 H 204 H Lactic Acid Calcium Phosphorus Total Bilirubin AST ALT Total Creatine Kinase CK-MB (CK-2) Troponin T Total Protein Albumin Prealbumin HDL Cholesterol Salicylates Acetaminophen Crossmatch Allied health notes reviewed: nursing
[2018-11-14] MEDS: XANAX PO PRN ×2 (14:38→21:06)
[2018-11-14 22:51] VITALS: BP 112/60
[2018-11-14 23:26] LABS: Hematocrit 27.2 % (35.5-45.6); Hemoglobin 9.2 gm/dl (11.8-15.2); Mean Corpuscular HGB Conc 34 % (32-34); Mean Corpuscular Volume 90 fl (84-94); Platelet Count 461 K/mm3 (140-440); Red Blood Count 3.04 M/mm3 (3.65-5.03); Red Cell Distribution Width 14.5 % (13.2-15.2)
[2018-11-14 23:51] LABS: BUN/Creatinine Ratio 34; Blood Urea Nitrogen 17 mg/dL (9-20); Calcium 8.1 mg/dL (8.4-10.2); Hemolysis Index 0
[2018-11-15] MEDS: PERCOCET 5/325 PO PRN ×2 (03:52→10:47)
[2018-11-15] MEDS: HumuLIN R SUB-Q SCH ×2 (07:30→11:30)
--- NOTE | 2018-11-15 08:35 | Progress Note ---
Assessment and Plan s/p left BKA, right open thrombectomy and aortic stenting and bilateral common iliac artery stenting but right EIA occluded requiring another open thrombectomy and stenting of the right iliac system. 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 Witnessed seizure en route. Acute kidney injury. Leukocytosis. Hypercapnia. Hyperkalemia. Metabolic acidosis. Lactic acidosis. Non-ST elevation myocardial infarction. Elevated serum transaminases. Pain management Therapeutic anticoagulation PT/OT/Mobility Falls precautions Optimize nutrition Discharge planning All other care as documented below - continue bronchodilators with pulmonary hygiene per RT - continue to wean supplemental oxygen to keep O2 sats 88-90% - PRN ABGs/CXR - Continue cardioprotective measures -Continue with secondary stroke prophylaxis - Replete electrolytes as indicated - Avoid nephrotoxic agents, adjust all medications for CrCL - Aspiration precautions - Accuchecks with glycemic control. Target glucose of 140-180 mg/dL - Influenza and pneumonia vaccination per protocol Subjective Date of service: 11/15/18 Principal diagnosis: Ac hypercapnic hypoxemic Resp failure; Drug OD; AE-COPD; NINOSKA; Seizures Interval history: Patient is seen today for: Acute hypoxemic respiratory failure,s/p mechanical ventilator support; Drug overdose; Chronic obstructive pulmonary disease ; s/p left BKA for critical limb ischemia Seen and examined at bedside; 24-hour events reviewed; nursing and respiratory care staff consulted; no adverse overnight events reported to me; Vitals, labs,medications, chart reviewed. Resting peacefully in bed. Denies any chest pain, no shortness of breath, no fevers or chills No nausea or vomiting. Tolerating his diet Objective Vital Signs - 12hr 11/14/18 11/14/18 11/14/18 21:05 21:17 22:10 Temperature 98.5 F Pulse Rate 76 70 Respiratory 20 Rate Blood Pressure 110/62 112/60 O2 Sat by Pulse 93 93 Oximetry Constitutional: no acute distress, alert, other (middle aged but chronically ill looking CM; Atraumatic) Eyes: non-icteric ENT: oropharynx moist, other (mallampati 2) Neck: supple, no lymphadenopathy, no JVD Effort: normal Ascultation: Bilateral: clear, diminished breath sounds, rhonchi (scant) Percussion: Bilateral: not dull Cardiovascular: irregular rhythm, other (No R/M) Gastrointestinal: normoactive bowel sounds, soft, non-tender, non-distended Integumentary: other (s/p left BKA) Extremities: no edema, other (S/P Left AKA. 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 (12.2-14.9) H 11/12/18 12:29 INR 1.20 (0.87-1.13) H 11/12/18 12:29 Abnormal lab findings: Abnormal Labs 10/11/18 10/11/18 10/11/18 00:16 00:16 00:16 WBC 20.1 H RBC Hgb POC Hgb Hct POC Hct MCV 98 H MCHC RDW 15.4 H Plt Count Lymph % (Auto) Pershing % (Auto) Pershing # Seg Neutrophils % Seg Neuts % (Manual) Lymphocytes % (Manual) 5.0 L Monocytes % (Manual) 25.0 H Seg Neutrophils # Seg Neutrophils # Man 9.2 H Lymphocytes # (Manual) 1.0 L Monocytes # (Manual) 5.0 H PT INR APTT Heparin Anti-Xa Level POC ABG pH POC ABG pCO2 POC ABG pO2 POC Potassium POC Chloride Sodium Potassium 5.8 H Chloride Carbon Dioxide 17 L BUN Creatinine 2.2 H Glucose 348 H POC Glucose Lactic Acid 13.70 H* Calcium 7.7 L Phosphorus Total Bilirubin 1.50 H AST 179 H ALT 110 H Total Creatine Kinase 324 H CK-MB (CK-2) Troponin T 0.257 H* Total Protein 5.9 L Albumin 2.9 L Prealbumin HDL Cholesterol 19 L Salicylates Acetaminophen Crossmatch 10/11/18 10/11/18 10/11/18 00:16 00:16 01:21 WBC RBC Hgb POC Hgb Hct POC Hct MCV MCHC RDW Plt Count Lymph % (Auto) Pershing % (Auto) Pershing # Seg Neutrophils % Seg Neuts % (Manual) Lymphocytes % (Manual) Monocytes % (Manual) Seg Neutrophils # Seg Neutrophils # Man Lymphocytes # (Manual) Monocytes # (Manual) PT INR APTT Heparin Anti-Xa Level POC ABG pH 7.110 L POC ABG pCO2 50.3 H POC ABG pO2 65 L POC Potassium POC Chloride Sodium Potassium Chloride Carbon Dioxide BUN Creatinine Glucose POC Glucose Lactic Acid Calcium Phosphorus Total Bilirubin AST ALT Total Creatine Kinase CK-MB (CK-2) Troponin T Total Protein Albumin Prealbumin HDL Cholesterol Salicylates < 0.3 L Acetaminophen < 5.0 L Crossmatch 10/11/18 10/11/18 10/11/18 01:22 03:27 04:14 WBC RBC Hgb POC Hgb Hct POC Hct MCV MCHC RDW Plt Count Lymph % (Auto) Pershing % (Auto) Pershing # Seg Neutrophils % Seg Neuts % (Manual) Lymphocytes % (Manual) Monocytes % (Manual) Seg Neutrophils # Seg Neutrophils # Man Lymphocytes # (Manual) Monocytes # (Manual) PT INR APTT Heparin Anti-Xa Level POC ABG pH POC ABG pCO2 POC ABG pO2 POC Potassium POC Chloride Sodium Potassium Chloride Carbon Dioxide BUN Creatinine Glucose POC Glucose Lactic Acid 8.50 H* 4.10 H* Calcium Phosphorus 4.90 H Total Bilirubin AST ALT Total Creatine Kinase CK-MB (CK-2) Troponin T Total Protein Albumin Prealbumin HDL Cholesterol Salicylates Acetaminophen Crossmatch 10/11/18 10/11/18 10/11/18 04:14 04:14 04:14 WBC RBC Hgb POC Hgb Hct POC Hct MCV MCHC RDW Plt Count Lymph % (Auto) Pershing % (Auto) Pershing # Seg Neutrophils % Seg Neuts % (Manual) Lymphocytes % (Manual) Monocytes % (Manual) Seg Neutrophils # Seg Neutrophils # Man Lymphocytes # (Manual) Monocytes # (Manual) PT INR APTT Heparin Anti-Xa Level POC ABG pH POC ABG pCO2 POC ABG pO2 POC Potassium POC Chloride Sodium Potassium 5.6 H Chloride Carbon Dioxide 19 L BUN Creatinine 1.6 H Glucose 329 H POC Glucose 328 H Lactic Acid Calcium 7.3 L Phosphorus Total Bilirubin AST ALT Total Creatine Kinase CK-MB (CK-2) Troponin T 1.130 H* D Total Protein Albumin Prealbumin HDL Cholesterol Salicylates Acetaminophen Crossmatch 10/11/18 10/11/18 10/11/18 05:10 05:32 05:58 WBC RBC Hgb POC Hgb Hct POC Hct MCV MCHC RDW Plt Count Lymph % (Auto) Pershing % (Auto) Pershing # Seg Neutrophils % Seg Neuts % (Manual) Lymphocytes % (Manual) Monocytes % (Manual) Seg Neutrophils # Seg Neutrophils # Man Lymphocytes # (Manual) Monocytes # (Manual) PT INR APTT Heparin Anti-Xa Level POC ABG pH 7.259 L POC ABG pCO2 45.6 H POC ABG pO2 POC Potassium POC Chloride Sodium Potassium Chloride 108.6 H Carbon Dioxide 20 L BUN Creatinine 1.8 H Glucose 269 H POC Glucose 273 H Lactic Acid Calcium 7.0 L Phosphorus Total Bilirubin AST ALT Total Creatine Kinase CK-MB (CK-2) Troponin T Total Protein Albumin Prealbumin HDL Cholesterol Salicylates Acetaminophen Crossmatch 10/11/18 10/11/18 10/11/18 05:58 06:39 07:00 WBC RBC Hgb POC Hgb Hct POC Hct MCV MCHC RDW Plt Count Lymph % (Auto) Pershing % (Auto) Pershing # Seg Neutrophils % Seg Neuts % (Manual) Lymphocytes % (Manual) Monocytes % (Manual) Seg Neutrophils # Seg Neutrophils # Man Lymphocytes # (Manual) Monocytes # (Manual) PT INR APTT Heparin Anti-Xa Level POC ABG pH POC ABG pCO2 POC ABG pO2 POC Potassium POC Chloride Sodium Potassium Chloride Carbon Dioxide BUN Creatinine Glucose POC Glucose 247 H Lactic Acid 3.20 H* 3.30 H* Calcium Phosphorus Total Bilirubin AST ALT Total Creatine Kinase CK-MB (CK-2) Troponin T Total Protein Albumin Prealbumin HDL Cholesterol Salicylates Acetaminophen Crossmatch 10/11/18 10/11/18 10/11/18 07:00 07:30 07:36 WBC RBC Hgb POC Hgb Hct POC Hct MCV MCHC RDW Plt Count Lymph % (Auto) Pershing % (Auto) Pershing # Seg Neutrophils % Seg Neuts % (Manual) Lymphocytes % (Manual) Monocytes % (Manual) Seg Neutrophils # Seg Neutrophils # Man Lymphocytes # (Manual) Monocytes # (Manual) PT INR APTT Heparin Anti-Xa Level POC ABG pH POC ABG pCO2 POC ABG pO2 POC Potassium POC Chloride Sodium 146 H Potassium Chloride 112.1 H Carbon Dioxide 21 L BUN Creatinine 1.6 H Glucose 218 H POC Glucose Lactic Acid 3.20 H* Calcium 7.0 L Phosphorus Total Bilirubin AST ALT Total Creatine Kinase CK-MB (CK-2) Troponin T 1.020 H* Total Protein Albumin Prealbumin HDL Cholesterol Salicylates Acetaminophen Crossmatch 10/11/18 10/11/18 10/11/18 07:43 08:29 08:29 WBC RBC Hgb 16.2 H POC Hgb Hct 49.9 H D POC Hct MCV MCHC RDW Plt Count Lymph % (Auto) Pershing % (Auto) Pershing # Seg Neutrophils % Seg Neuts % (Manual) Lymphocytes % (Manual) Monocytes % (Manual) Seg Neutrophils # Seg Neutrophils # Man Lymphocytes # (Manual) Monocytes # (Manual) PT INR APTT Heparin Anti-Xa Level POC ABG pH POC ABG pCO2 POC ABG pO2 POC Potassium POC Chloride Sodium Potassium Chloride Carbon Dioxide BUN Creatinine Glucose POC Glucose 174 H Lactic Acid 3.90 H* Calcium Phosphorus Total Bilirubin AST ALT Total Creatine Kinase CK-MB (CK-2) Troponin T Total Protein Albumin Prealbumin HDL Cholesterol Salicylates Acetaminophen Crossmatch 10/11/18 10/11/18 10/11/18 08:29 08:42 11:05 WBC RBC Hgb POC Hgb Hct POC Hct MCV MCHC RDW Plt Count Lymph % (Auto) Pershing % (Auto) Pershing # Seg Neutrophils % Seg Neuts % (Manual) Lymphocytes % (Manual) Monocytes % (Manual) Seg Neutrophils # Seg Neutrophils # Man Lymphocytes # (Manual) Monocytes # (Manual) PT INR APTT 24.1 L Heparin Anti-Xa Level POC ABG pH POC ABG pCO2 POC ABG pO2 POC Potassium POC Chloride Sodium 147 H Potassium Chloride 113.3 H Carbon Dioxide 21 L BUN Creatinine 1.7 H Glucose 119 H POC Glucose 164 H Lactic Acid Calcium 7.7 L Phosphorus Total Bilirubin AST ALT Total Creatine Kinase CK-MB (CK-2) Troponin T Total Protein Albumin Prealbumin HDL Cholesterol Salicylates Acetaminophen Crossmatch 10/11/18 10/11/18 10/11/18 11:05 11:06 12:30 WBC RBC Hgb POC Hgb Hct POC Hct MCV MCHC RDW Plt Count Lymph % (Auto) Pershing % (Auto) Pershing # Seg Neutrophils % Seg Neuts % (Manual) Lymphocytes % (Manual) Monocytes % (Manual) Seg Neutrophils # Seg Neutrophils # Man Lymphocytes # (Manual) Monocytes # (Manual) PT INR APTT Heparin Anti-Xa Level POC ABG pH POC ABG pCO2 POC ABG pO2 POC Potassium POC Chloride Sodium 148 H Potassium Chloride 113.4 H Carbon Dioxide 21 L BUN Creatinine 1.6 H Glucose 119 H POC Glucose 116 H Lactic Acid 3.20 H* Calcium 7.5 L Phosphorus Total Bilirubin AST ALT Total Creatine Kinase CK-MB (CK-2) Troponin T Total Protein Albumin Prealbumin HDL Cholesterol Salicylates Acetaminophen Crossmatch 10/11/18 10/11/18 10/11/18 12:30 13:16 13:25 WBC RBC Hgb POC Hgb Hct POC Hct MCV MCHC RDW Plt Count Lymph % (Auto) Pershing % (Auto) Pershing # Seg Neutrophils % Seg Neuts % (Manual) Lymphocytes % (Manual) Monocytes % (Manual) Seg Neutrophils # Seg Neutrophils # Man Lymphocytes # (Manual) Monocytes # (Manual) PT INR APTT Heparin Anti-Xa Level POC ABG pH 7.247 L POC ABG pCO2 48.4 H POC ABG pO2 POC Potassium POC Chloride Sodium Potassium Chloride Carbon Dioxide BUN Creatinine Glucose POC Glucose 112 H Lactic Acid 2.70 H* Calcium Phosphorus Total Bilirubin AST ALT Total Creatine Kinase CK-MB (CK-2) Troponin T Total Protein Albumin Prealbumin HDL Cholesterol Salicylates Acetaminophen Crossmatch 10/11/18 10/11/18 10/11/18 14:41 15:27 16:13 WBC RBC Hgb POC Hgb Hct POC Hct MCV MCHC RDW Plt Count Lymph % (Auto) Pershing % (Auto) Pershing # Seg Neutrophils % Seg Neuts % (Manual) Lymphocytes % (Manual) Monocytes % (Manual) Seg Neutrophils # Seg Neutrophils # Man Lymphocytes # (Manual) Monocytes # (Manual) PT INR APTT Heparin Anti-Xa Level POC ABG pH POC ABG pCO2 POC ABG pO2 POC Potassium POC Chloride Sodium Potassium Chloride Carbon Dioxide BUN Creatinine Glucose POC Glucose 127 H 141 H 134 H Lactic Acid Calcium Phosphorus Total Bilirubin AST ALT Total Creatine Kinase CK-MB (CK-2) Troponin T Total Protein Albumin Prealbumin HDL Cholesterol Salicylates Acetaminophen Crossmatch 10/11/18 10/11/18 10/11/18 17:18 18:23 19:38 WBC RBC Hgb POC Hgb Hct POC Hct MCV MCHC RDW Plt Count Lymph % (Auto) Pershing % (Auto) Pershing # Seg Neutrophils % Seg Neuts % (Manual) Lymphocytes % (Manual) Monocytes % (Manual) Seg Neutrophils # Seg Neutrophils # Man Lymphocytes # (Manual) Monocytes # (Manual) PT INR APTT Heparin Anti-Xa Level POC ABG pH POC ABG pCO2 POC ABG pO2 POC Potassium POC Chloride Sodium 148 H Potassium Chloride 112.7 H Carbon Dioxide BUN 23 H Creatinine Glucose 143 H POC Glucose 132 H 129 H Lactic Acid Calcium 7.9 L Phosphorus Total Bilirubin AST ALT Total Creatine Kinase CK-MB (CK-2) Troponin T Total Protein Albumin Prealbumin HDL Cholesterol Salicylates Acetaminophen Crossmatch 10/11/18 10/11/18 10/11/18 20:19 20:36 21:01 WBC RBC Hgb POC Hgb Hct POC Hct MCV MCHC RDW Plt Count Lymph % (Auto) Pershing % (Auto) Pershing # Seg Neutrophils % Seg Neuts % (Manual) Lymphocytes % (Manual) Monocytes % (Manual) Seg Neutrophils # Seg Neutrophils # Man Lymphocytes # (Manual) Monocytes # (Manual) PT INR APTT Heparin Anti-Xa Level POC ABG pH 7.281 L POC ABG pCO2 POC ABG pO2 POC Potassium POC Chloride Sodium Potassium Chloride Carbon Dioxide BUN Creatinine Glucose POC Glucose 129 H 151 H Lactic Acid Calcium Phosphorus Total Bilirubin AST ALT Total Creatine Kinase CK-MB (CK-2) Troponin T Total Protein Albumin Prealbumin HDL Cholesterol Salicylates Acetaminophen Crossmatch 10/11/18 10/11/18 10/12/18 22:04 23:15 01:18 WBC RBC Hgb POC Hgb Hct POC Hct MCV MCHC RDW Plt Count Lymph % (Auto) Pershing % (Auto) Pershing # Seg Neutrophils % Seg Neuts % (Manual) Lymphocytes % (Manual) Monocytes % (Manual) Seg Neutrophils # Seg Neutrophils # Man Lymphocytes # (Manual) Monocytes # (Manual) PT INR APTT Heparin Anti-Xa Level POC ABG pH POC ABG pCO2 POC ABG pO2 POC Potassium POC Chloride Sodium Potassium Chloride Carbon Dioxide BUN Creatinine Glucose POC Glucose 147 H 143 H 158 H Lactic Acid Calcium Phosphorus Total Bilirubin AST ALT Total Creatine Kinase CK-MB (CK-2) Troponin T Total Protein Albumin Prealbumin HDL Cholesterol Salicylates Acetaminophen Crossmatch 10/12/18 10/12/18 10/12/18 02:13 03:18 04:04 WBC RBC Hgb POC Hgb Hct POC Hct MCV MCHC RDW Plt Count Lymph % (Auto) Pershing % (Auto) Pershing # Seg Neutrophils % Seg Neuts % (Manual) Lymphocytes % (Manual) Monocytes % (Manual) Seg Neutrophils # Seg Neutrophils # Man Lymphocytes # (Manual) Monocytes # (Manual) PT INR APTT Heparin Anti-Xa Level POC ABG pH POC ABG pCO2 POC ABG pO2 POC Potassium POC Chloride Sodium 147 H Potassium Chloride 111.1 H Carbon Dioxide BUN 30 H Creatinine 2.0 H Glucose 154 H POC Glucose 148 H 142 H Lactic Acid Calcium 8.1 L Phosphorus Total Bilirubin AST 269 H ALT 204 H Total Creatine Kinase 3647 H CK-MB (CK-2) 48.3 H Troponin T 2.230 H* D Total Protein 5.8 L Albumin 2.6 L Prealbumin HDL Cholesterol Salicylates Acetaminophen Crossmatch 10/12/18 10/12/18 10/12/18 04:04 04:08 04:19 WBC 24.4 H RBC Hgb POC Hgb Hct POC Hct MCV MCHC RDW Plt Count Lymph % (Auto) Pershing % (Auto) Pershing # Seg Neutrophils % Seg Neuts % (Manual) 32.0 L Lymphocytes % (Manual) Monocytes % (Manual) 8.0 H Seg Neutrophils # Seg Neutrophils # Man 7.8 H Lymphocytes # (Manual) Monocytes # (Manual) 2.0 H PT INR APTT Heparin Anti-Xa Level POC ABG pH 7.317 L POC ABG pCO2 49.3 H POC ABG pO2 POC Potassium POC Chloride Sodium Potassium Chloride Carbon Dioxide BUN Creatinine Glucose POC Glucose 143 H Lactic Acid Calcium Phosphorus Total Bilirubin AST ALT Total Creatine Kinase CK-MB (CK-2) Troponin T Total Protein Albumin Prealbumin HDL Cholesterol Salicylates Acetaminophen Crossmatch 10/12/18 10/12/18 10/12/18 05:29 06:52 08:09 WBC RBC Hgb POC Hgb Hct POC Hct MCV MCHC RDW Plt Count Lymph % (Auto) Pershing % (Auto) Pershing # Seg Neutrophils % Seg Neuts % (Manual) Lymphocytes % (Manual) Monocytes % (Manual) Seg Neutrophils # Seg Neutrophils # Man Lymphocytes # (Manual) Monocytes # (Manual) PT INR APTT Heparin Anti-Xa Level POC ABG pH 7.322 L POC ABG pCO2 46.5 H POC ABG pO2 POC Potassium POC Chloride Sodium Potassium Chloride Carbon Dioxide BUN Creatinine Glucose POC Glucose 196 H 226 H Lactic Acid Calcium Phosphorus Total Bilirubin AST ALT Total Creatine Kinase CK-MB (CK-2) Troponin T Total Protein Albumin Prealbumin HDL Cholesterol Salicylates Acetaminophen Crossmatch 10/12/18 10/12/18 10/12/18 08:38 10:03 15:50 WBC RBC Hgb POC Hgb Hct POC Hct MCV MCHC RDW Plt Count Lymph % (Auto) Pershing % (Auto) Pershing # Seg Neutrophils % Seg Neuts % (Manual) Lymphocytes % (Manual) Monocytes % (Manual) Seg Neutrophils # Seg Neutrophils # Man Lymphocytes # (Manual) Monocytes # (Manual) PT INR APTT Heparin Anti-Xa Level POC ABG pH POC ABG pCO2 POC ABG pO2 POC Potassium POC Chloride Sodium Potassium Chloride Carbon Dioxide BUN Creatinine Glucose POC Glucose 138 H 148 H 221 H Lactic Acid Calcium Phosphorus Total Bilirubin AST ALT Total Creatine Kinase CK-MB (CK-2) Troponin T Total Protein Albumin Prealbumin HDL Cholesterol Salicylates Acetaminophen Crossmatch 10/12/18 10/12/18 10/12/18 18:39 20:56 21:34 WBC RBC Hgb POC Hgb Hct POC Hct MCV MCHC RDW Plt Count Lymph % (Auto) Pershing % (Auto) Pershing # Seg Neutrophils % Seg Neuts % (Manual) Lymphocytes % (Manual) Monocytes % (Manual) Seg Neutrophils # Seg Neutrophils # Man Lymphocytes # (Manual) Monocytes # (Manual) PT INR APTT Heparin Anti-Xa Level POC ABG pH 7.336 L POC ABG pCO2 46.0 H POC ABG pO2 POC Potassium POC Chloride Sodium Potassium Chloride Carbon Dioxide BUN Creatinine Glucose POC Glucose 255 H 260 H Lactic Acid Calcium Phosphorus Total Bilirubin AST ALT Total Creatine Kinase CK-MB (CK-2) Troponin T Total Protein Albumin Prealbumin HDL Cholesterol Salicylates Acetaminophen Crossmatch 10/13/18 10/13/18 10/13/18 02:29 05:09 05:40 WBC 17.0 H RBC Hgb POC Hgb Hct POC Hct MCV MCHC RDW Plt Count Lymph % (Auto) Pershing % (Auto) 9.2 H Pershing # 1.6 H Seg Neutrophils % 76.2 H Seg Neuts % (Manual) Lymphocytes % (Manual) Monocytes % (Manual) Seg Neutrophils # 12.9 H Seg Neutrophils # Man Lymphocytes # (Manual) Monocytes # (Manual) PT INR APTT Heparin Anti-Xa Level POC ABG pH POC ABG pCO2 POC ABG pO2 POC Potassium POC Chloride Sodium Potassium Chloride Carbon Dioxide BUN Creatinine Glucose POC Glucose 216 H 249 H Lactic Acid Calcium Phosphorus Total Bilirubin AST ALT Total Creatine Kinase CK-MB (CK-2) Troponin T Total Protein Albumin Prealbumin HDL Cholesterol Salicylates Acetaminophen Crossmatch 10/13/18 10/13/18 10/13/18 05:40 05:40 09:46 WBC RBC Hgb POC Hgb Hct POC Hct MCV MCHC RDW Plt Count Lymph % (Auto) Pershing % (Auto) Pershing # Seg Neutrophils % Seg Neuts % (Manual) Lymphocytes % (Manual) Monocytes % (Manual) Seg Neutrophils # Seg Neutrophils # Man Lymphocytes # (Manual) Monocytes # (Manual) PT INR APTT Heparin Anti-Xa Level POC ABG pH POC ABG pCO2 POC ABG pO2 POC Potassium POC Chloride Sodium 146 H Potassium Chloride 109.8 H Carbon Dioxide BUN 35 H Creatinine Glucose 245 H POC Glucose 235 H Lactic Acid Calcium 7.9 L Phosphorus Total Bilirubin AST ALT Total Creatine Kinase CK-MB (CK-2) Troponin T 0.952 H* D Total Protein Albumin Prealbumin HDL Cholesterol Salicylates Acetaminophen Crossmatch 10/13/18 10/13/18 10/13/18 13:58 16:15 17:30 WBC RBC Hgb POC Hgb Hct POC Hct MCV MCHC RDW Plt Count Lymph % (Auto) Pershing % (Auto) Pershing # Seg Neutrophils % Seg Neuts % (Manual) Lymphocytes % (Manual) Monocytes % (Manual) Seg Neutrophils # Seg Neutrophils # Man Lymphocytes # (Manual) Monocytes # (Manual) PT INR APTT Heparin Anti-Xa Level POC ABG pH POC ABG pCO2 51.2 H POC ABG pO2 POC Potassium POC Chloride Sodium Potassium Chloride Carbon Dioxide BUN Creatinine Glucose POC Glucose 139 H Lactic Acid Calcium Phosphorus Total Bilirubin AST ALT Total Creatine Kinase CK-MB (CK-2) Troponin T 0.816 H* Total Protein Albumin Prealbumin HDL Cholesterol Salicylates Acetaminophen Crossmatch 10/13/18 10/14/18 10/14/18 21:25 01:49 04:52 WBC RBC Hgb POC Hgb Hct POC Hct MCV MCHC RDW Plt Count Lymph % (Auto) Pershing % (Auto) Pershing # Seg Neutrophils % Seg Neuts % (Manual) Lymphocytes % (Manual) Monocytes % (Manual) Seg Neutrophils # Seg Neutrophils # Man Lymphocytes # (Manual) Monocytes # (Manual) PT INR APTT Heparin Anti-Xa Level POC ABG pH POC ABG pCO2 56.0 H POC ABG pO2 POC Potassium POC Chloride Sodium Potassium Chloride Carbon Dioxide BUN Creatinine Glucose POC Glucose 205 H 166 H Lactic Acid Calcium Phosphorus Total Bilirubin AST ALT Total Creatine Kinase CK-MB (CK-2) Troponin T Total Protein Albumin Prealbumin HDL Cholesterol Salicylates Acetaminophen Crossmatch 10/14/18 10/14/18 10/14/18 05:32 09:45 09:45 WBC RBC Hgb 11.4 L POC Hgb Hct 34.5 L POC Hct MCV MCHC RDW Plt Count 139 L Lymph % (Auto) Pershing % (Auto) Pershing # Seg Neutrophils % Seg Neuts % (Manual) Lymphocytes % (Manual) Monocytes % (Manual) Seg Neutrophils # Seg Neutrophils # Man Lymphocytes # (Manual) Monocytes # (Manual) PT INR APTT Heparin Anti-Xa Level POC ABG pH POC ABG pCO2 POC ABG pO2 POC Potassium POC Chloride Sodium 148 H Potassium Chloride 107.3 H Carbon Dioxide 34 H D BUN Creatinine 0.7 L D Glucose 191 H POC Glucose 164 H Lactic Acid Calcium 7.3 L Phosphorus Total Bilirubin AST 110 H ALT 91 H Total Creatine Kinase CK-MB (CK-2) Troponin T Total Protein 4.9 L Albumin 2.0 L Prealbumin HDL Cholesterol Salicylates Acetaminophen Crossmatch 10/14/18 10/14/18 10/14/18 10:54 12:20 18:30 WBC RBC Hgb POC Hgb Hct POC Hct MCV MCHC RDW Plt Count Lymph % (Auto) Pershing % (Auto) Pershing # Seg Neutrophils % Seg Neuts % (Manual) Lymphocytes % (Manual) Monocytes % (Manual) Seg Neutrophils # Seg Neutrophils # Man Lymphocytes # (Manual) Monocytes # (Manual) PT INR APTT Heparin Anti-Xa Level POC ABG pH POC ABG pCO2 POC ABG pO2 POC Potassium POC Chloride Sodium Potassium Chloride Carbon Dioxide BUN Creatinine Glucose POC Glucose 173 H 158 H 108 H Lactic Acid Calcium Phosphorus Total Bilirubin AST ALT Total Creatine Kinase CK-MB (CK-2) Troponin T Total Protein Albumin Prealbumin HDL Cholesterol Salicylates Acetaminophen Crossmatch 10/14/18 10/15/18 10/15/18 21:54 02:12 04:19 WBC RBC Hgb POC Hgb Hct POC Hct MCV MCHC RDW Plt Count Lymph % (Auto) Pershing % (Auto) Pershing # Seg Neutrophils % Seg Neuts % (Manual) Lymphocytes % (Manual) Monocytes % (Manual) Seg Neutrophils # Seg Neutrophils # Man Lymphocytes # (Manual) Monocytes # (Manual) PT INR APTT Heparin Anti-Xa Level POC ABG pH 7.491 H POC ABG pCO2 45.1 H POC ABG pO2 POC Potassium POC Chloride Sodium Potassium Chloride Carbon Dioxide BUN Creatinine Glucose POC Glucose 110 H 164 H Lactic Acid Calcium Phosphorus Total Bilirubin AST ALT Total Creatine Kinase CK-MB (CK-2) Troponin T Total Protein Albumin Prealbumin HDL Cholesterol Salicylates Acetaminophen Crossmatch 10/15/18 10/15/18 10/15/18 04:55 05:43 06:20 WBC RBC Hgb 11.7 L POC Hgb Hct 34.7 L POC Hct MCV MCHC RDW Plt Count Lymph % (Auto) Pershing % (Auto) Pershing # Seg Neutrophils % Seg Neuts % (Manual) Lymphocytes % (Manual) Monocytes % (Manual) Seg Neutrophils # Seg Neutrophils # Man Lymphocytes # (Manual) Monocytes # (Manual) PT INR APTT Heparin Anti-Xa Level POC ABG pH POC ABG pCO2 47.3 H POC ABG pO2 78 L POC Potassium POC Chloride Sodium Potassium Chloride Carbon Dioxide BUN Creatinine Glucose POC Glucose 250 H Lactic Acid Calcium Phosphorus Total Bilirubin AST ALT Total Creatine Kinase CK-MB (CK-2) Troponin T Total Protein Albumin Prealbumin HDL Cholesterol Salicylates Acetaminophen Crossmatch 10/15/18 10/15/18 10/15/18 12:00 12:00 12:11 WBC RBC Hgb 11.5 L POC Hgb Hct 34.0 L POC Hct MCV MCHC RDW Plt Count Lymph % (Auto) Pershing % (Auto) Pershing # Seg Neutrophils % Seg Neuts % (Manual) Lymphocytes % (Manual) Monocytes % (Manual) Seg Neutrophils # Seg Neutrophils # Man Lymphocytes # (Manual) Monocytes # (Manual) PT INR APTT Heparin Anti-Xa Level POC ABG pH POC ABG pCO2 POC ABG pO2 POC Potassium POC Chloride Sodium 147 H Potassium Chloride 108.5 H Carbon Dioxide BUN Creatinine 0.7 L Glucose 209 H POC Glucose 197 H Lactic Acid Calcium 7.3 L Phosphorus Total Bilirubin AST ALT Total Creatine Kinase CK-MB (CK-2) Troponin T Total Protein Albumin Prealbumin HDL Cholesterol Salicylates Acetaminophen Crossmatch 10/15/18 10/15/18 10/15/18 15:48 18:34 21:29 WBC RBC Hgb POC Hgb Hct POC Hct MCV MCHC RDW Plt Count Lymph % (Auto) Pershing % (Auto) Pershing # Seg Neutrophils % Seg Neuts % (Manual) Lymphocytes % (Manual) Monocytes % (Manual) Seg Neutrophils # Seg Neutrophils # Man Lymphocytes # (Manual) Monocytes # (Manual) PT INR APTT Heparin Anti-Xa Level POC ABG pH POC ABG pCO2 POC ABG pO2 POC Potassium POC Chloride Sodium Potassium Chloride Carbon Dioxide BUN Creatinine Glucose POC Glucose 220 H 249 H 209 H Lactic Acid Calcium Phosphorus Total Bilirubin AST ALT Total Creatine Kinase CK-MB (CK-2) Troponin T Total Protein Albumin Prealbumin HDL Cholesterol Salicylates Acetaminophen Crossmatch 10/16/18 10/16/18 10/16/18 02:16 03:50 05:57 WBC RBC Hgb POC Hgb Hct POC Hct MCV MCHC RDW Plt Count Lymph % (Auto) [place] % (Auto) Pershing # Seg Neutrophils % Seg Neuts % (Manual) Lymphocytes % (Manual) Monocytes % (Manual) Seg Neutrophils # Seg Neutrophils # Man Lymphocytes # (Manual) Monocytes # (Manual) PT INR APTT Heparin Anti-Xa Level POC ABG pH POC ABG pCO2 55.8 H POC ABG pO2 POC Potassium POC Chloride Sodium Potassium Chloride Carbon Dioxide BUN Creatinine Glucose POC Glucose 110 H 209 H Lactic Acid Calcium Phosphorus Total Bilirubin AST ALT Total Creatine Kinase CK-MB (CK-2) Troponin T Total Protein Albumin Prealbumin HDL Cholesterol Salicylates Acetaminophen Crossmatch 10/16/18 10/16/18 10/16/18 10:51 12:51 15:01 WBC RBC Hgb POC Hgb Hct POC Hct MCV MCHC RDW Plt Count Lymph % (Auto) [place] % (Auto) Pershing # Seg Neutrophils % Seg Neuts % (Manual) Lymphocytes % (Manual) Monocytes % (Manual) Seg Neutrophils # Seg Neutrophils # Man Lymphocytes # (Manual) Monocytes # (Manual) PT INR APTT Heparin Anti-Xa Level POC ABG pH POC ABG pCO2 48.9 H POC ABG pO2 POC Potassium POC Chloride Sodium Potassium Chloride Carbon Dioxide BUN Creatinine Glucose POC Glucose 198 H 196 H Lactic Acid Calcium Phosphorus Total Bilirubin AST ALT Total Creatine Kinase CK-MB (CK-2) Troponin T Total Protein Albumin Prealbumin HDL Cholesterol Salicylates Acetaminophen Crossmatch 10/16/18 10/16/18 10/17/18 17:34 21:59 02:17 WBC RBC Hgb POC Hgb Hct POC Hct MCV MCHC RDW Plt Count Lymph % (Auto) [place] % (Auto) Pershing # Seg Neutrophils % Seg Neuts % (Manual) Lymphocytes % (Manual) Monocytes % (Manual) Seg Neutrophils # Seg Neutrophils # Man Lymphocytes # (Manual) Monocytes # (Manual) PT INR APTT Heparin Anti-Xa Level POC ABG pH POC ABG pCO2 POC ABG pO2 POC Potassium POC Chloride Sodium Potassium Chloride Carbon Dioxide BUN Creatinine Glucose POC Glucose 179 H 139 H 135 H Lactic Acid Calcium Phosphorus Total Bilirubin AST ALT Total Creatine Kinase CK-MB (CK-2) Troponin T Total Protein Albumin Prealbumin HDL Cholesterol Salicylates Acetaminophen Crossmatch 10/17/18 10/17/18 10/17/18 05:40 05:47 10:18 WBC RBC Hgb 11.3 L POC Hgb Hct 33.2 L POC Hct MCV MCHC RDW Plt Count Lymph % (Auto) [place] % (Auto) Pershing # Seg Neutrophils % Seg Neuts % (Manual) Lymphocytes % (Manual) Monocytes % (Manual) Seg Neutrophils # Seg Neutrophils # Man Lymphocytes # (Manual) Monocytes # (Manual) PT INR APTT Heparin Anti-Xa Level POC ABG pH POC ABG pCO2 POC ABG pO2 POC Potassium POC Chloride Sodium Potassium Chloride Carbon Dioxide BUN Creatinine Glucose POC Glucose 125 H 139 H Lactic Acid Calcium Phosphorus Total Bilirubin AST ALT Total Creatine Kinase CK-MB (CK-2) Troponin T Total Protein Albumin Prealbumin HDL Cholesterol Salicylates Acetaminophen Crossmatch 10/17/18 10/18/18 10/18/18 23:11 08:49 11:31 WBC RBC Hgb POC Hgb Hct POC Hct MCV MCHC RDW Plt Count Lymph % (Auto) [place] % (Auto) [place]hing # Seg Neutrophils % Seg Neuts % (Manual) Lymphocytes % (Manual) Monocytes % (Manual) Seg Neutrophils # Seg Neutrophils # Man Lymphocytes # (Manual) Monocytes # (Manual) PT INR APTT Heparin Anti-Xa Level POC ABG pH POC ABG pCO2 POC ABG pO2 POC Potassium POC Chloride Sodium Potassium Chloride Carbon Dioxide BUN Creatinine Glucose POC Glucose 165 H 125 H 182 H Lactic Acid Calcium Phosphorus Total Bilirubin AST ALT Total Creatine Kinase CK-MB (CK-2) Troponin T Total Protein Albumin Prealbumin HDL Cholesterol Salicylates Acetaminophen Crossmatch 10/18/18 10/18/18 10/19/18 16:12 21:02 00:28 WBC RBC Hgb 11.4 L POC Hgb Hct 33.6 L POC Hct MCV MCHC RDW Plt Count Lymph % (Auto) [place]hing % (Auto) 14.0 H Pershing # 1.2 H Seg Neutrophils % Seg Neuts % (Manual) Lymphocytes % (Manual) Monocytes % (Manual) Seg Neutrophils # Seg Neutrophils # Man Lymphocytes # (Manual) Monocytes # (Manual) PT INR APTT Heparin Anti-Xa Level POC ABG pH POC ABG pCO2 POC ABG pO2 POC Potassium POC Chloride Sodium Potassium Chloride Carbon Dioxide BUN Creatinine Glucose POC Glucose 168 H 324 H Lactic Acid Calcium Phosphorus Total Bilirubin AST ALT Total Creatine Kinase CK-MB (CK-2) Troponin T Total Protein Albumin Prealbumin HDL Cholesterol Salicylates Acetaminophen Crossmatch 10/19/18 10/19/18 10/19/18 04:57 04:57 07:32 WBC RBC Hgb 11.7 L POC Hgb Hct 34.0 L POC Hct MCV MCHC RDW Plt Count Lymph % (Auto) [place] % (Auto) Pershing # Seg Neutrophils % Seg Neuts % (Manual) Lymphocytes % (Manual) Monocytes % (Manual) Seg Neutrophils # Seg Neutrophils # Man Lymphocytes # (Manual) Monocytes # (Manual) PT INR APTT Heparin Anti-Xa Level POC ABG pH POC ABG pCO2 POC ABG pO2 POC Potassium POC Chloride Sodium Potassium 3.5 L Chloride 108.6 H Carbon Dioxide BUN Creatinine 0.6 L Glucose POC Glucose 159 H Lactic Acid Calcium 7.9 L Phosphorus Total Bilirubin AST ALT Total Creatine Kinase CK-MB (CK-2) Troponin T Total Protein Albumin Prealbumin HDL Cholesterol Salicylates Acetaminophen Crossmatch 10/19/18 10/19/18 10/20/18 16:25 20:59 12:04 WBC RBC Hgb POC Hgb Hct POC Hct MCV MCHC RDW Plt Count Lymph % (Auto) [place] % (Auto) Pershing # Seg Neutrophils % Seg Neuts % (Manual) Lymphocytes % (Manual) Monocytes % (Manual) Seg Neutrophils # Seg Neutrophils # Man Lymphocytes # (Manual) Monocytes # (Manual) PT INR APTT Heparin Anti-Xa Level POC ABG pH POC ABG pCO2 POC ABG pO2 POC Potassium POC Chloride Sodium Potassium Chloride Carbon Dioxide BUN Creatinine Glucose POC Glucose 134 H 110 H 338 H Lactic Acid Calcium Phosphorus Total Bilirubin AST ALT Total Creatine Kinase CK-MB (CK-2) Troponin T Total Protein Albumin Prealbumin HDL Cholesterol Salicylates Acetaminophen Crossmatch 10/20/18 10/20/18 10/21/18 17:55 22:07 04:59 WBC RBC Hgb 11.6 L POC Hgb Hct 33.9 L POC Hct MCV MCHC RDW Plt Count Lymph % (Auto) [place]hing % (Auto) 9.7 H Pershing # 0.9 H Seg Neutrophils % 70.7 H Seg Neuts % (Manual) Lymphocytes % (Manual) Monocytes % (Manual) Seg Neutrophils # Seg Neutrophils # Man Lymphocytes # (Manual) Monocytes # (Manual) PT INR APTT Heparin Anti-Xa Level POC ABG pH POC ABG pCO2 POC ABG pO2 POC Potassium POC Chloride Sodium Potassium Chloride Carbon Dioxide BUN Creatinine Glucose POC Glucose 146 H 164 H Lactic Acid Calcium Phosphorus Total Bilirubin AST ALT Total Creatine Kinase CK-MB (CK-2) Troponin T Total Protein Albumin Prealbumin HDL Cholesterol Salicylates Acetaminophen Crossmatch 10/21/18 10/21/18 10/21/18 04:59 07:52 11:39 WBC RBC Hgb POC Hgb Hct POC Hct MCV MCHC RDW Plt Count Lymph % (Auto) [place] % (Auto) Pershing # Seg Neutrophils % Seg Neuts % (Manual) Lymphocytes % (Manual) Monocytes % (Manual) Seg Neutrophils # Seg Neutrophils # Man Lymphocytes # (Manual) Monocytes # (Manual) PT INR APTT Heparin Anti-Xa Level POC ABG pH POC ABG pCO2 POC ABG pO2 POC Potassium POC Chloride Sodium Potassium 3.5 L Chloride 107.1 H Carbon Dioxide BUN Creatinine 0.5 L Glucose 158 H POC Glucose 142 H 194 H Lactic Acid Calcium 7.5 L Phosphorus Total Bilirubin AST ALT Total Creatine Kinase CK-MB (CK-2) Troponin T Total Protein 5.6 L Albumin 2.0 L Prealbumin HDL Cholesterol Salicylates Acetaminophen Crossmatch 10/21/18 10/21/18 10/22/18 17:05 20:37 05:38 WBC RBC 3.48 L Hgb 10.8 L POC Hgb Hct 31.7 L POC Hct MCV MCHC RDW Plt Count 458 H Lymph % (Auto) [place]hing % (Auto) 10.5 H [place] # Seg Neutrophils % Seg Neuts % (Manual) Lymphocytes % (Manual) Monocytes % (Manual) Seg Neutrophils # Seg Neutrophils # Man Lymphocytes # (Manual) Monocytes # (Manual) PT INR APTT Heparin Anti-Xa Level POC ABG pH POC ABG pCO2 POC ABG pO2 POC Potassium POC Chloride Sodium Potassium Chloride Carbon Dioxide BUN Creatinine Glucose POC Glucose 167 H 182 H Lactic Acid Calcium Phosphorus Total Bilirubin AST ALT Total Creatine Kinase CK-MB (CK-2) Troponin T Total Protein Albumin Prealbumin HDL Cholesterol Salicylates Acetaminophen Crossmatch 10/22/18 10/22/18 10/22/18 05:38 07:48 12:08 WBC RBC Hgb POC Hgb Hct POC Hct MCV MCHC RDW Plt Count Lymph % (Auto) [place]hing % (Auto) Pershing # Seg Neutrophils % Seg Neuts % (Manual) Lymphocytes % (Manual) Monocytes % (Manual) Seg Neutrophils # Seg Neutrophils # Man Lymphocytes # (Manual) Monocytes # (Manual) PT INR APTT Heparin Anti-Xa Level POC ABG pH POC ABG pCO2 POC ABG pO2 POC Potassium POC Chloride Sodium Potassium Chloride Carbon Dioxide BUN Creatinine 0.5 L Glucose 146 H POC Glucose 130 H 167 H Lactic Acid Calcium 7.8 L Phosphorus Total Bilirubin AST 41 H ALT Total Creatine Kinase CK-MB (CK-2) Troponin T Total Protein 5.5 L Albumin 2.1 L Prealbumin HDL Cholesterol Salicylates Acetaminophen Crossmatch 10/22/18 10/22/18 10/23/18 16:45 21:42 04:38 WBC RBC Hgb 11.7 L POC Hgb Hct 34.7 L POC Hct MCV MCHC RDW Plt Count 523 H Lymph % (Auto) [place]hing % (Auto) 8.7 H Pershing # Seg Neutrophils % 71.6 H Seg Neuts % (Manual) Lymphocytes % (Manual) Monocytes % (Manual) Seg Neutrophils # Seg Neutrophils # Man Lymphocytes # (Manual) Monocytes # (Manual) PT INR APTT Heparin Anti-Xa Level POC ABG pH POC ABG pCO2 POC ABG pO2 POC Potassium POC Chloride Sodium Potassium Chloride Carbon Dioxide BUN Creatinine Glucose POC Glucose 113 H 134 H Lactic Acid Calcium Phosphorus Total Bilirubin AST ALT Total Creatine Kinase CK-MB (CK-2) Troponin T Total Protein Albumin Prealbumin HDL Cholesterol Salicylates Acetaminophen Crossmatch 10/23/18 10/23/18 10/23/18 04:38 07:56 11:15 WBC RBC Hgb POC Hgb Hct POC Hct MCV MCHC RDW Plt Count Lymph % (Auto) [place] % (Auto) [place]hing # Seg Neutrophils % Seg Neuts % (Manual) Lymphocytes % (Manual) Monocytes % (Manual) Seg Neutrophils # Seg Neutrophils # Man Lymphocytes # (Manual) Monocytes # (Manual) PT INR APTT Heparin Anti-Xa Level POC ABG pH POC ABG pCO2 POC ABG pO2 POC Potassium POC Chloride Sodium Potassium Chloride Carbon Dioxide BUN 7 L Creatinine 0.5 L Glucose 150 H POC Glucose 123 H 212 H Lactic Acid Calcium 8.0 L Phosphorus Total Bilirubin AST 55 H ALT Total Creatine Kinase CK-MB (CK-2) Troponin T Total Protein 6.2 L Albumin 2.3 L Prealbumin HDL Cholesterol Salicylates Acetaminophen Crossmatch 10/23/18 10/23/18 10/24/18 16:06 22:01 05:56 WBC 11.8 H RBC 3.64 L Hgb 11.2 L POC Hgb Hct 33.4 L POC Hct MCV MCHC RDW Plt Count 564 H Lymph % (Auto) 11.3 L [place]hing % (Auto) Pershing # Seg Neutrophils % 80.2 H Seg Neuts % (Manual) Lymphocytes % (Manual) Monocytes % (Manual) Seg Neutrophils # 9.4 H Seg Neutrophils # Man Lymphocytes # (Manual) Monocytes # (Manual) PT INR APTT Heparin Anti-Xa Level POC ABG pH POC ABG pCO2 POC ABG pO2 POC Potassium POC Chloride Sodium Potassium Chloride Carbon Dioxide BUN Creatinine Glucose POC Glucose 152 H 235 H Lactic Acid Calcium Phosphorus Total Bilirubin AST ALT Total Creatine Kinase CK-MB (CK-2) Troponin T Total Protein Albumin Prealbumin HDL Cholesterol Salicylates Acetaminophen Crossmatch 10/24/18 10/24/18 10/24/18 05:56 07:52 11:58 WBC RBC Hgb POC Hgb Hct POC Hct MCV MCHC RDW Plt Count Lymph % (Auto) [place] % (Auto) Pershing # Seg Neutrophils % Seg Neuts % (Manual) Lymphocytes % (Manual) Monocytes % (Manual) Seg Neutrophils # Seg Neutrophils # Man Lymphocytes # (Manual) Monocytes # (Manual) PT INR APTT Heparin Anti-Xa Level POC ABG pH POC ABG pCO2 POC ABG pO2 POC Potassium POC Chloride Sodium Potassium Chloride Carbon Dioxide BUN Creatinine 0.5 L Glucose 175 H POC Glucose 156 H 238 H Lactic Acid Calcium 8.0 L Phosphorus Total Bilirubin AST 44 H ALT Total Creatine Kinase CK-MB (CK-2) Troponin T Total Protein 6.2 L Albumin 2.4 L Prealbumin HDL Cholesterol Salicylates Acetaminophen Crossmatch 10/24/18 10/24/18 10/25/18 16:20 22:13 07:53 WBC RBC Hgb POC Hgb Hct POC Hct MCV MCHC RDW Plt Count Lymph % (Auto) [place] % (Auto) Pershing # Seg Neutrophils % Seg Neuts % (Manual) Lymphocytes % (Manual) Monocytes % (Manual) Seg Neutrophils # Seg Neutrophils # Man Lymphocytes # (Manual) Monocytes # (Manual) PT INR APTT Heparin Anti-Xa Level POC ABG pH POC ABG pCO2 POC ABG pO2 POC Potassium POC Chloride Sodium Potassium Chloride Carbon Dioxide BUN Creatinine Glucose POC Glucose 60 L 261 H 211 H Lactic Acid Calcium Phosphorus Total Bilirubin AST ALT Total Creatine Kinase CK-MB (CK-2) Troponin T Total Protein Albumin Prealbumin HDL Cholesterol Salicylates Acetaminophen Crossmatch 10/25/18 10/25/18 10/25/18 11:03 16:02 22:45 WBC RBC Hgb POC Hgb Hct POC Hct MCV MCHC RDW Plt Count Lymph % (Auto) [place] % (Auto) [place]hing # Seg Neutrophils % Seg Neuts % (Manual) Lymphocytes % (Manual) Monocytes % (Manual) Seg Neutrophils # Seg Neutrophils # Man Lymphocytes # (Manual) Monocytes # (Manual) PT INR APTT Heparin Anti-Xa Level POC ABG pH POC ABG pCO2 POC ABG pO2 POC Potassium POC Chloride Sodium Potassium Chloride Carbon Dioxide BUN Creatinine Glucose POC Glucose 137 H 186 H 140 H Lactic Acid Calcium Phosphorus Total Bilirubin AST ALT Total Creatine Kinase CK-MB (CK-2) Troponin T Total Protein Albumin Prealbumin HDL Cholesterol Salicylates Acetaminophen Crossmatch 10/26/18 10/26/18 10/26/18 08:13 10:08 11:28 WBC RBC Hgb POC Hgb Hct POC Hct MCV MCHC RDW Plt Count Lymph % (Auto) [place] % (Auto) [place]hing # Seg Neutrophils % Seg Neuts % (Manual) Lymphocytes % (Manual) Monocytes % (Manual) Seg Neutrophils # Seg Neutrophils # Man Lymphocytes # (Manual) Monocytes # (Manual) PT INR APTT Heparin Anti-Xa Level POC ABG pH POC ABG pCO2 POC ABG pO2 POC Potassium POC Chloride Sodium Potassium Chloride Carbon Dioxide BUN Creatinine Glucose POC Glucose 144 H 110 H 201 H Lactic Acid Calcium Phosphorus Total Bilirubin AST ALT Total Creatine Kinase CK-MB (CK-2) Troponin T Total Protein Albumin Prealbumin HDL Cholesterol Salicylates Acetaminophen Crossmatch 10/26/18 10/26/18 10/27/18 16:36 22:29 07:34 WBC RBC Hgb POC Hgb Hct POC Hct MCV MCHC RDW Plt Count Lymph % (Auto) [place] % (Auto) [place]hing # Seg Neutrophils % Seg Neuts % (Manual) Lymphocytes % (Manual) Monocytes % (Manual) Seg Neutrophils # Seg Neutrophils # Man Lymphocytes # (Manual) Monocytes # (Manual) PT INR APTT Heparin Anti-Xa Level POC ABG pH POC ABG pCO2 POC ABG pO2 POC Potassium POC Chloride Sodium Potassium Chloride Carbon Dioxide BUN Creatinine Glucose POC Glucose 147 H 302 H 182 H Lactic Acid Calcium Phosphorus Total Bilirubin AST ALT Total Creatine Kinase CK-MB (CK-2) Troponin T Total Protein Albumin Prealbumin HDL Cholesterol Salicylates Acetaminophen Crossmatch 10/27/18 10/27/18 10/27/18 11:57 13:33 14:55 WBC RBC Hgb POC Hgb Hct POC Hct MCV MCHC RDW Plt Count 550 H Lymph % (Auto) [place]hing % (Auto) [place] # Seg Neutrophils % Seg Neuts % (Manual) Lymphocytes % (Manual) Monocytes % (Manual) Seg Neutrophils # Seg Neutrophils # Man Lymphocytes # (Manual) Monocytes # (Manual) PT INR APTT Heparin Anti-Xa Level POC ABG pH POC ABG pCO2 POC ABG pO2 POC Potassium POC Chloride Sodium Potassium Chloride Carbon Dioxide BUN Creatinine Glucose POC Glucose 209 H Lactic Acid Calcium Phosphorus Total Bilirubin AST ALT Total Creatine Kinase CK-MB (CK-2) Troponin T Total Protein Albumin Prealbumin HDL Cholesterol Salicylates Acetaminophen Crossmatch See Detail 10/27/18 10/27/18 10/28/18 17:09 21:45 07:45 WBC RBC Hgb POC Hgb Hct POC Hct MCV MCHC RDW Plt Count Lymph % (Auto) [place]hing % (Auto) [place]hing # Seg Neutrophils % Seg Neuts % (Manual) Lymphocytes % (Manual) Monocytes % (Manual) Seg Neutrophils # Seg Neutrophils # Man Lymphocytes # (Manual) Monocytes # (Manual) PT INR APTT Heparin Anti-Xa Level POC ABG pH POC ABG pCO2 POC ABG pO2 POC Potassium POC Chloride Sodium Potassium Chloride Carbon Dioxide BUN Creatinine Glucose POC Glucose 233 H 136 H 201 H Lactic Acid Calcium Phosphorus Total Bilirubin AST ALT Total Creatine Kinase CK-MB (CK-2) Troponin T Total Protein Albumin Prealbumin HDL Cholesterol Salicylates Acetaminophen Crossmatch 10/28/18 10/28/18 10/28/18 11:17 16:34 19:51 WBC RBC Hgb POC Hgb Hct POC Hct MCV MCHC RDW Plt Count Lymph % (Auto) [place]hing % (Auto) [place]hing # Seg Neutrophils % Seg Neuts % (Manual) Lymphocytes % (Manual) Monocytes % (Manual) Seg Neutrophils # Seg Neutrophils # Man Lymphocytes # (Manual) Monocytes # (Manual) PT INR APTT Heparin Anti-Xa Level < 0.10 L POC ABG pH POC ABG pCO2 POC ABG pO2 POC Potassium POC Chloride Sodium Potassium Chloride Carbon Dioxide BUN Creatinine Glucose POC Glucose 116 H 168 H Lactic Acid Calcium Phosphorus Total Bilirubin AST ALT Total Creatine Kinase CK-MB (CK-2) Troponin T Total Protein Albumin Prealbumin HDL Cholesterol Salicylates Acetaminophen Crossmatch 10/28/18 10/29/18 10/29/18 21:52 07:11 07:11 WBC RBC Hgb POC Hgb Hct POC Hct MCV MCHC RDW Plt Count 470 H Lymph % (Auto) [place]hing % (Auto) [place]hing # Seg Neutrophils % Seg Neuts % (Manual) Lymphocytes % (Manual) Monocytes % (Manual) Seg Neutrophils # Seg Neutrophils # Man Lymphocytes # (Manual) Monocytes # (Manual) PT INR APTT Heparin Anti-Xa Level 0.13 L POC ABG pH POC ABG pCO2 POC ABG pO2 POC Potassium POC Chloride Sodium Potassium Chloride Carbon Dioxide BUN Creatinine Glucose POC Glucose 159 H Lactic Acid Calcium Phosphorus Total Bilirubin AST ALT Total Creatine Kinase CK-MB (CK-2) Troponin T Total Protein Albumin Prealbumin HDL Cholesterol Salicylates Acetaminophen Crossmatch 10/29/18 10/29/18 10/29/18 07:11 07:43 11:29 WBC RBC Hgb POC Hgb Hct POC Hct MCV MCHC RDW Plt Count Lymph % (Auto) [place]hing % (Auto) [place]hing # Seg Neutrophils % Seg Neuts % (Manual) Lymphocytes % (Manual) Monocytes % (Manual) Seg Neutrophils # Seg Neutrophils # Man Lymphocytes # (Manual) Monocytes # (Manual) PT INR APTT Heparin Anti-Xa Level POC ABG pH POC ABG pCO2 POC ABG pO2 POC Potassium POC Chloride Sodium Potassium Chloride Carbon Dioxide BUN 7 L Creatinine 0.5 L Glucose 122 H POC Glucose 147 H 165 H Lactic Acid Calcium 8.2 L Phosphorus Total Bilirubin AST ALT Total Creatine Kinase CK-MB (CK-2) Troponin T Total Protein Albumin Prealbumin HDL Cholesterol Salicylates Acetaminophen Crossmatch 10/29/18 10/29/18 10/30/18 19:50 22:11 00:11 WBC RBC Hgb POC Hgb Hct POC Hct MCV MCHC RDW Plt Count Lymph % (Auto) [place]hing % (Auto) [place]hing # Seg Neutrophils % Seg Neuts % (Manual) Lymphocytes % (Manual) Monocytes % (Manual) Seg Neutrophils # Seg Neutrophils # Man Lymphocytes # (Manual) Monocytes # (Manual) PT INR APTT Heparin Anti-Xa Level 0.25 L POC ABG pH POC ABG pCO2 POC ABG pO2 POC Potassium POC Chloride Sodium Potassium Chloride Carbon Dioxide BUN Creatinine Glucose POC Glucose 166 H 173 H Lactic Acid Calcium Phosphorus Total Bilirubin AST ALT Total Creatine Kinase CK-MB (CK-2) Troponin T Total Protein Albumin Prealbumin HDL Cholesterol Salicylates Acetaminophen Crossmatch 10/30/18 10/30/18 10/30/18 04:22 04:22 07:47 WBC 27.0 H RBC 3.16 L Hgb 10.0 L POC Hgb Hct 28.8 L D POC Hct MCV MCHC 35 H RDW Plt Count Lymph % (Auto) [place]hing % (Auto) Pershing # Seg Neutrophils % Seg Neuts % (Manual) Lymphocytes % (Manual) 1.5 L Monocytes % (Manual) Seg Neutrophils # Seg Neutrophils # Man 18.6 H Lymphocytes # (Manual) 0.4 L Monocytes # (Manual) PT INR APTT Heparin Anti-Xa Level POC ABG pH POC ABG pCO2 POC ABG pO2 POC Potassium POC Chloride Sodium Potassium Chloride Carbon Dioxide BUN Creatinine Glucose 224 H POC Glucose 168 H Lactic Acid Calcium 7.5 L Phosphorus Total Bilirubin AST ALT Total Creatine Kinase CK-MB (CK-2) Troponin T Total Protein Albumin Prealbumin HDL Cholesterol Salicylates Acetaminophen Crossmatch 10/30/18 10/30/18 10/30/18 07:55 11:20 16:41 WBC RBC Hgb POC Hgb Hct POC Hct MCV MCHC RDW Plt Count Lymph % (Auto) [place]hing % (Auto) [place]hing # Seg Neutrophils % Seg Neuts % (Manual) Lymphocytes % (Manual) Monocytes % (Manual) Seg Neutrophils # Seg Neutrophils # Man Lymphocytes # (Manual) Monocytes # (Manual) PT INR APTT Heparin Anti-Xa Level < 0.10 L POC ABG pH POC ABG pCO2 POC ABG pO2 POC Potassium POC Chloride Sodium Potassium Chloride Carbon Dioxide BUN Creatinine Glucose POC Glucose 165 H 142 H Lactic Acid Calcium Phosphorus Total Bilirubin AST ALT Total Creatine Kinase CK-MB (CK-2) Troponin T Total Protein Albumin Prealbumin HDL Cholesterol Salicylates Acetaminophen Crossmatch 10/30/18 10/30/18 10/31/18 20:51 21:20 05:21 WBC RBC Hgb 9.0 L POC Hgb Hct 26.6 L POC Hct MCV MCHC RDW Plt Count Lymph % (Auto) [place]hing % (Auto) [place]hing # Seg Neutrophils % Seg Neuts % (Manual) Lymphocytes % (Manual) Monocytes % (Manual) Seg Neutrophils # Seg Neutrophils # Man Lymphocytes # (Manual) Monocytes # (Manual) PT INR APTT Heparin Anti-Xa Level < 0.10 L POC ABG pH POC ABG pCO2 POC ABG pO2 POC Potassium POC Chloride Sodium Potassium Chloride Carbon Dioxide BUN Creatinine Glucose POC Glucose 136 H Lactic Acid Calcium Phosphorus Total Bilirubin AST ALT Total Creatine Kinase CK-MB (CK-2) Troponin T Total Protein Albumin Prealbumin HDL Cholesterol Salicylates Acetaminophen Crossmatch 10/31/18 10/31/18 10/31/18 08:07 10:19 12:12 WBC RBC Hgb POC Hgb Hct POC Hct MCV MCHC RDW Plt Count Lymph % (Auto) [place]hing % (Auto) [place]hing # Seg Neutrophils % Seg Neuts % (Manual) Lymphocytes % (Manual) Monocytes % (Manual) Seg Neutrophils # Seg Neutrophils # Man Lymphocytes # (Manual) Monocytes # (Manual) PT INR APTT Heparin Anti-Xa Level POC ABG pH POC ABG pCO2 POC ABG pO2 POC Potassium POC Chloride Sodium Potassium Chloride Carbon Dioxide BUN Creatinine Glucose POC Glucose 155 H 194 H Lactic Acid Calcium Phosphorus Total Bilirubin AST ALT Total Creatine Kinase CK-MB (CK-2) Troponin T Total Protein Albumin Prealbumin HDL Cholesterol Salicylates Acetaminophen Crossmatch See Detail 10/31/18 10/31/18 10/31/18 16:07 16:56 21:14 WBC RBC Hgb POC Hgb Hct POC Hct MCV MCHC RDW Plt Count Lymph % (Auto) [place]hing % (Auto) [place]hing # Seg Neutrophils % Seg Neuts % (Manual) Lymphocytes % (Manual) Monocytes % (Manual) Seg Neutrophils # Seg Neutrophils # Man Lymphocytes # (Manual) Monocytes # (Manual) PT INR APTT Heparin Anti-Xa Level 1.20 H POC ABG pH POC ABG pCO2 POC ABG pO2 POC Potassium POC Chloride Sodium Potassium Chloride Carbon Dioxide BUN Creatinine Glucose POC Glucose 354 H 234 H Lactic Acid Calcium Phosphorus Total Bilirubin AST ALT Total Creatine Kinase CK-MB (CK-2) Troponin T Total Protein Albumin Prealbumin HDL Cholesterol Salicylates Acetaminophen Crossmatch 11/01/18 11/01/18 11/01/18 00:52 05:52 05:52 WBC 12.5 H RBC 2.95 L Hgb 9.1 L POC Hgb Hct 27.4 L POC Hct MCV MCHC RDW 15.3 H Plt Count Lymph % (Auto) [place]hing % (Auto) Pershing # Seg Neutrophils % Seg Neuts % (Manual) Lymphocytes % (Manual) Monocytes % (Manual) Seg Neutrophils # Seg Neutrophils # Man Lymphocytes # (Manual) Monocytes # (Manual) PT INR APTT Heparin Anti-Xa Level 1.53 H POC ABG pH POC ABG pCO2 POC ABG pO2 POC Potassium POC Chloride Sodium Potassium Chloride Carbon Dioxide BUN Creatinine 0.5 L Glucose 169 H POC Glucose Lactic Acid Calcium 8.3 L Phosphorus Total Bilirubin AST ALT Total Creatine Kinase CK-MB (CK-2) Troponin T Total Protein 6.2 L Albumin 2.3 L Prealbumin HDL Cholesterol Salicylates Acetaminophen Crossmatch 11/01/18 11/01/18 11/01/18 08:17 10:57 11:38 WBC RBC Hgb POC Hgb Hct POC Hct MCV MCHC RDW Plt Count Lymph % (Auto) [place]hing % (Auto) [place]hing # Seg Neutrophils % Seg Neuts % (Manual) Lymphocytes % (Manual) Monocytes % (Manual) Seg Neutrophils # Seg Neutrophils # Man Lymphocytes # (Manual) Monocytes # (Manual) PT INR APTT Heparin Anti-Xa Level 1.05 H POC ABG pH POC ABG pCO2 POC ABG pO2 POC Potassium POC Chloride Sodium Potassium Chloride Carbon Dioxide BUN Creatinine Glucose POC Glucose 158 H 133 H Lactic Acid Calcium Phosphorus Total Bilirubin AST ALT Total Creatine Kinase CK-MB (CK-2) Troponin T Total Protein Albumin Prealbumin HDL Cholesterol Salicylates Acetaminophen Crossmatch 11/01/18 11/01/18 11/02/18 17:08 21:23 04:56 WBC RBC 3.02 L Hgb 9.5 L POC Hgb Hct 28.0 L POC Hct MCV MCHC RDW Plt Count Lymph % (Auto) Pershing % (Auto) Pershing # Seg Neutrophils % Seg Neuts % (Manual) Lymphocytes % (Manual) Monocytes % (Manual) Seg Neutrophils # Seg Neutrophils # Man Lymphocytes # (Manual) Monocytes # (Manual) PT INR APTT Heparin Anti-Xa Level POC ABG pH POC ABG pCO2 POC ABG pO2 POC Potassium POC Chloride Sodium Potassium Chloride Carbon Dioxide BUN Creatinine Glucose POC Glucose 156 H 213 H Lactic Acid Calcium Phosphorus Total Bilirubin AST ALT Total Creatine Kinase CK-MB (CK-2) Troponin T Total Protein Albumin Prealbumin HDL Cholesterol Salicylates Acetaminophen Crossmatch 11/02/18 11/02/18 11/02/18 04:56 08:38 11:23 WBC RBC Hgb POC Hgb Hct POC Hct MCV MCHC RDW Plt Count Lymph % (Auto) Pershing % (Auto) Pershing # Seg Neutrophils % Seg Neuts % (Manual) Lymphocytes % (Manual) Monocytes % (Manual) Seg Neutrophils # Seg Neutrophils # Man Lymphocytes # (Manual) Monocytes # (Manual) PT INR APTT Heparin Anti-Xa Level POC ABG pH POC ABG pCO2 POC ABG pO2 POC Potassium POC Chloride Sodium Potassium Chloride Carbon Dioxide BUN Creatinine 0.5 L Glucose 141 H POC Glucose 173 H 272 H Lactic Acid Calcium 8.2 L Phosphorus Total Bilirubin AST 43 H ALT Total Creatine Kinase CK-MB (CK-2) Troponin T Total Protein 6.1 L Albumin 2.2 L Prealbumin HDL Cholesterol Salicylates Acetaminophen Crossmatch 11/02/18 11/03/18 11/03/18 22:16 04:38 04:38 WBC 11.6 H RBC 3.20 L Hgb 9.8 L POC Hgb Hct 29.2 L POC Hct MCV MCHC RDW Plt Count Lymph % (Auto) Pershing % (Auto) Pershing # Seg Neutrophils % Seg Neuts % (Manual) Lymphocytes % (Manual) Monocytes % (Manual) Seg Neutrophils # Seg Neutrophils # Man Lymphocytes # (Manual) Monocytes # (Manual) PT INR APTT Heparin Anti-Xa Level POC ABG pH POC ABG pCO2 POC ABG pO2 POC Potassium POC Chloride Sodium 135 L Potassium Chloride Carbon Dioxide BUN Creatinine 0.5 L Glucose 160 H POC Glucose 182 H Lactic Acid Calcium Phosphorus Total Bilirubin AST 46 H ALT Total Creatine Kinase CK-MB (CK-2) Troponin T Total Protein Albumin 2.3 L Prealbumin HDL Cholesterol Salicylates Acetaminophen Crossmatch 11/03/18 11/03/18 11/03/18 07:52 10:59 18:10 WBC RBC Hgb POC Hgb Hct POC Hct MCV MCHC RDW Plt Count Lymph % (Auto) Pershing % (Auto) Pershing # Seg Neutrophils % Seg Neuts % (Manual) Lymphocytes % (Manual) Monocytes % (Manual) Seg Neutrophils # Seg Neutrophils # Man Lymphocytes # (Manual) Monocytes # (Manual) PT INR APTT Heparin Anti-Xa Level POC ABG pH POC ABG pCO2 POC ABG pO2 POC Potassium POC Chloride Sodium Potassium Chloride Carbon Dioxide BUN Creatinine Glucose POC Glucose 180 H 159 H 169 H Lactic Acid Calcium Phosphorus Total Bilirubin AST ALT Total Creatine Kinase CK-MB (CK-2) Troponin T Total Protein Albumin Prealbumin HDL Cholesterol Salicylates Acetaminophen Crossmatch 11/04/18 11/04/18 11/04/18 07:46 11:42 15:45 WBC 11.5 H RBC 3.41 L Hgb 10.4 L POC Hgb Hct 30.8 L POC Hct MCV MCHC RDW Plt Count Lymph % (Auto) Pershing % (Auto) Pershing # Seg Neutrophils % Seg Neuts % (Manual) Lymphocytes % (Manual) Monocytes % (Manual) Seg Neutrophils # Seg Neutrophils # Man Lymphocytes # (Manual) Monocytes # (Manual) PT INR APTT Heparin Anti-Xa Level POC ABG pH POC ABG pCO2 POC ABG pO2 POC Potassium POC Chloride Sodium Potassium Chloride Carbon Dioxide BUN Creatinine Glucose POC Glucose 160 H 149 H Lactic Acid Calcium Phosphorus Total Bilirubin AST ALT Total Creatine Kinase CK-MB (CK-2) Troponin T Total Protein Albumin Prealbumin HDL Cholesterol Salicylates Acetaminophen Crossmatch 11/04/18 11/04/18 11/04/18 15:45 15:45 16:41 WBC RBC Hgb POC Hgb Hct POC Hct MCV MCHC RDW Plt Count Lymph % (Auto) Pershing % (Auto) Pershing # Seg Neutrophils % Seg Neuts % (Manual) Lymphocytes % (Manual) Monocytes % (Manual) Seg Neutrophils # Seg Neutrophils # Man Lymphocytes # (Manual) Monocytes # (Manual) PT INR APTT Heparin Anti-Xa Level POC ABG pH POC ABG pCO2 POC ABG pO2 POC Potassium POC Chloride Sodium 133 L Potassium Chloride 95.6 L Carbon Dioxide BUN Creatinine 0.5 L Glucose 163 H POC Glucose 157 H Lactic Acid Calcium Phosphorus Total Bilirubin AST ALT Total Creatine Kinase CK-MB (CK-2) Troponin T Total Protein Albumin 2.6 L Prealbumin 0.073 L HDL Cholesterol Salicylates Acetaminophen Crossmatch 11/04/18 11/05/18 11/05/18 21:59 08:51 12:13 WBC RBC Hgb POC Hgb Hct POC Hct MCV MCHC RDW Plt Count Lymph % (Auto) Pershing % (Auto) Pershing # Seg Neutrophils % Seg Neuts % (Manual) Lymphocytes % (Manual) Monocytes % (Manual) Seg Neutrophils # Seg Neutrophils # Man Lymphocytes # (Manual) Monocytes # (Manual) PT INR APTT Heparin Anti-Xa Level POC ABG pH POC ABG pCO2 POC ABG pO2 POC Potassium POC Chloride Sodium Potassium Chloride Carbon Dioxide BUN Creatinine Glucose POC Glucose 195 H 187 H 149 H Lactic Acid Calcium Phosphorus Total Bilirubin AST ALT Total Creatine Kinase CK-MB (CK-2) Troponin T Total Protein Albumin Prealbumin HDL Cholesterol Salicylates Acetaminophen Crossmatch 11/05/18 11/05/18 11/06/18 17:15 20:37 07:00 WBC RBC 3.48 L Hgb 11.2 L POC Hgb Hct 31.8 L POC Hct MCV MCHC 35 H RDW Plt Count Lymph % (Auto) Pershing % (Auto) Pershing # Seg Neutrophils % Seg Neuts % (Manual) Lymphocytes % (Manual) Monocytes % (Manual) Seg Neutrophils # Seg Neutrophils # Man Lymphocytes # (Manual) Monocytes # (Manual) PT INR APTT Heparin Anti-Xa Level POC ABG pH POC ABG pCO2 POC ABG pO2 POC Potassium POC Chloride Sodium Potassium Chloride Carbon Dioxide BUN Creatinine Glucose POC Glucose 281 H 203 H Lactic Acid Calcium Phosphorus Total Bilirubin AST ALT Total Creatine Kinase CK-MB (CK-2) Troponin T Total Protein Albumin Prealbumin HDL Cholesterol Salicylates Acetaminophen Crossmatch 11/06/18 11/06/18 11/06/18 07:00 07:31 12:45 WBC RBC Hgb POC Hgb Hct POC Hct MCV MCHC RDW Plt Count Lymph % (Auto) Pershing % (Auto) Pershing # Seg Neutrophils % Seg Neuts % (Manual) Lymphocytes % (Manual) Monocytes % (Manual) Seg Neutrophils # Seg Neutrophils # Man Lymphocytes # (Manual) Monocytes # (Manual) PT INR APTT Heparin Anti-Xa Level POC ABG pH POC ABG pCO2 POC ABG pO2 POC Potassium POC Chloride Sodium 135 L Potassium Chloride 97.3 L Carbon Dioxide BUN Creatinine 0.5 L Glucose 163 H POC Glucose 215 H 183 H Lactic Acid Calcium Phosphorus Total Bilirubin AST ALT Total Creatine Kinase CK-MB (CK-2) Troponin T Total Protein Albumin Prealbumin HDL Cholesterol Salicylates Acetaminophen Crossmatch 11/06/18 11/06/18 11/07/18 17:47 21:05 07:42 WBC RBC Hgb POC Hgb Hct POC Hct MCV MCHC RDW Plt Count Lymph % (Auto) Pershing % (Auto) Pershing # Seg Neutrophils % Seg Neuts % (Manual) Lymphocytes % (Manual) Monocytes % (Manual) Seg Neutrophils # Seg Neutrophils # Man Lymphocytes # (Manual) Monocytes # (Manual) PT INR APTT Heparin Anti-Xa Level POC ABG pH POC ABG pCO2 POC ABG pO2 POC Potassium POC Chloride Sodium Potassium Chloride Carbon Dioxide BUN Creatinine Glucose POC Glucose 141 H 223 H 168 H Lactic Acid Calcium Phosphorus Total Bilirubin AST ALT Total Creatine Kinase CK-MB (CK-2) Troponin T Total Protein Albumin Prealbumin HDL Cholesterol Salicylates Acetaminophen Crossmatch 11/07/18 11/07/18 11/07/18 11:37 16:21 21:39 WBC RBC Hgb POC Hgb Hct POC Hct MCV MCHC RDW Plt Count Lymph % (Auto) Pershing % (Auto) Pershing # Seg Neutrophils % Seg Neuts % (Manual) Lymphocytes % (Manual) Monocytes % (Manual) Seg Neutrophils # Seg Neutrophils # Man Lymphocytes # (Manual) Monocytes # (Manual) PT INR APTT Heparin Anti-Xa Level POC ABG pH POC ABG pCO2 POC ABG pO2 POC Potassium POC Chloride Sodium Potassium Chloride Carbon Dioxide BUN Creatinine Glucose POC Glucose 120 H 169 H 127 H Lactic Acid Calcium Phosphorus Total Bilirubin AST ALT Total Creatine Kinase CK-MB (CK-2) Troponin T Total Protein Albumin Prealbumin HDL Cholesterol Salicylates Acetaminophen Crossmatch 11/08/18 11/08/18 11/08/18 11:48 16:32 16:32 WBC 11.3 H RBC 3.40 L Hgb 10.3 L POC Hgb Hct 30.5 L POC Hct MCV MCHC RDW Plt Count 465 H Lymph % (Auto) Pershing % (Auto) 9.3 H Pershing # 1.0 H Seg Neutrophils % 73.1 H Seg Neuts % (Manual) Lymphocytes % (Manual) Monocytes % (Manual) Seg Neutrophils # 8.3 H Seg Neutrophils # Man Lymphocytes # (Manual) Monocytes # (Manual) PT INR APTT Heparin Anti-Xa Level POC ABG pH POC ABG pCO2 POC ABG pO2 POC Potassium POC Chloride Sodium 133 L Potassium Chloride 96.7 L Carbon Dioxide BUN Creatinine 0.4 L Glucose 187 H POC Glucose 144 H Lactic Acid Calcium Phosphorus Total Bilirubin AST ALT Total Creatine Kinase CK-MB (CK-2) Troponin T Total Protein Albumin Prealbumin HDL Cholesterol Salicylates Acetaminophen Crossmatch 11/08/18 11/09/18 11/09/18 16:52 01:48 06:06 WBC 12.7 H RBC 3.47 L Hgb 10.5 L POC Hgb Hct 31.5 L POC Hct MCV MCHC RDW Plt Count 452 H Lymph % (Auto) Pershing % (Auto) 10.9 H Pershing # 1.4 H Seg Neutrophils % Seg Neuts % (Manual) Lymphocytes % (Manual) Monocytes % (Manual) Seg Neutrophils # 8.9 H Seg Neutrophils # Man Lymphocytes # (Manual) Monocytes # (Manual) PT INR APTT Heparin Anti-Xa Level POC ABG pH POC ABG pCO2 POC ABG pO2 POC Potassium POC Chloride Sodium Potassium Chloride Carbon Dioxide BUN Creatinine Glucose POC Glucose 220 H 146 H Lactic Acid Calcium Phosphorus Total Bilirubin AST ALT Total Creatine Kinase CK-MB (CK-2) Troponin T Total Protein Albumin Prealbumin HDL Cholesterol Salicylates Acetaminophen Crossmatch 11/09/18 11/09/18 11/09/18 06:06 07:36 12:28 WBC RBC Hgb POC Hgb Hct POC Hct MCV MCHC RDW Plt Count Lymph % (Auto) Pershing % (Auto) Pershing # Seg Neutrophils % Seg Neuts % (Manual) Lymphocytes % (Manual) Monocytes % (Manual) Seg Neutrophils # Seg Neutrophils # Man Lymphocytes # (Manual) Monocytes # (Manual) PT INR APTT Heparin Anti-Xa Level POC ABG pH POC ABG pCO2 POC ABG pO2 POC Potassium POC Chloride Sodium 129 L Potassium Chloride 94.5 L Carbon Dioxide BUN Creatinine 0.4 L Glucose 136 H POC Glucose 133 H 193 H Lactic Acid Calcium Phosphorus Total Bilirubin AST ALT Total Creatine Kinase CK-MB (CK-2) Troponin T Total Protein Albumin Prealbumin HDL Cholesterol Salicylates Acetaminophen Crossmatch 11/09/18 11/10/18 11/10/18 21:14 06:27 06:27 WBC RBC 3.50 L Hgb 10.7 L POC Hgb Hct 31.2 L POC Hct MCV MCHC RDW Plt Count 496 H Lymph % (Auto) Pershing % (Auto) 11.8 H Pershing # 1.2 H Seg Neutrophils % Seg Neuts % (Manual) Lymphocytes % (Manual) Monocytes % (Manual) Seg Neutrophils # Seg Neutrophils # Man Lymphocytes # (Manual) Monocytes # (Manual) PT INR APTT Heparin Anti-Xa Level POC ABG pH POC ABG pCO2 POC ABG pO2 POC Potassium POC Chloride Sodium 135 L Potassium Chloride 97.2 L Carbon Dioxide BUN Creatinine 0.4 L Glucose 137 H POC Glucose 125 H Lactic Acid Calcium Phosphorus Total Bilirubin AST ALT Total Creatine Kinase CK-MB (CK-2) Troponin T Total Protein Albumin Prealbumin HDL Cholesterol Salicylates Acetaminophen Crossmatch 11/10/18 11/10/18 11/10/18 09:01 17:47 22:10 WBC RBC Hgb POC Hgb Hct POC Hct MCV MCHC RDW Plt Count Lymph % (Auto) Pershing % (Auto) Pershing # Seg Neutrophils % Seg Neuts % (Manual) Lymphocytes % (Manual) Monocytes % (Manual) Seg Neutrophils # Seg Neutrophils # Man Lymphocytes # (Manual) Monocytes # (Manual) PT INR APTT Heparin Anti-Xa Level POC ABG pH POC ABG pCO2 POC ABG pO2 POC Potassium POC Chloride Sodium Potassium Chloride Carbon Dioxide BUN Creatinine Glucose POC Glucose 145 H 179 H 178 H Lactic Acid Calcium Phosphorus Total Bilirubin AST ALT Total Creatine Kinase CK-MB (CK-2) Troponin T Total Protein Albumin Prealbumin HDL Cholesterol Salicylates Acetaminophen Crossmatch 11/11/18 11/11/18 11/11/18 07:44 12:18 17:33 WBC RBC Hgb POC Hgb Hct POC Hct MCV MCHC RDW Plt Count Lymph % (Auto) Pershing % (Auto) Pershing # Seg Neutrophils % Seg Neuts % (Manual) Lymphocytes % (Manual) Monocytes % (Manual) Seg Neutrophils # Seg Neutrophils # Man Lymphocytes # (Manual) Monocytes # (Manual) PT INR APTT Heparin Anti-Xa Level POC ABG pH POC ABG pCO2 POC ABG pO2 POC Potassium POC Chloride Sodium Potassium Chloride Carbon Dioxide BUN Creatinine Glucose POC Glucose 112 H 206 H 148 H Lactic Acid Calcium Phosphorus Total Bilirubin AST ALT Total Creatine Kinase CK-MB (CK-2) Troponin T Total Protein Albumin Prealbumin HDL Cholesterol Salicylates Acetaminophen Crossmatch 11/11/18 11/12/18 11/12/18 21:29 08:01 11:42 WBC RBC Hgb POC Hgb Hct POC Hct MCV MCHC RDW Plt Count Lymph % (Auto) Pershing % (Auto) Pershing # Seg Neutrophils % Seg Neuts % (Manual) Lymphocytes % (Manual) Monocytes % (Manual) Seg Neutrophils # Seg Neutrophils # Man Lymphocytes # (Manual) Monocytes # (Manual) PT INR APTT Heparin Anti-Xa Level POC ABG pH POC ABG pCO2 POC ABG pO2 POC Potassium POC Chloride Sodium Potassium Chloride Carbon Dioxide BUN Creatinine Glucose POC Glucose 184 H 157 H 150 H Lactic Acid Calcium Phosphorus Total Bilirubin AST ALT Total Creatine Kinase CK-MB (CK-2) Troponin T Total Protein Albumin Prealbumin HDL Cholesterol Salicylates Acetaminophen Crossmatch 11/12/18 11/12/18 11/12/18 12:29 12:29 15:21 WBC RBC Hgb 10.7 L POC Hgb Hct 31.2 L POC Hct MCV MCHC RDW Plt Count 534 H Lymph % (Auto) Pershing % (Auto) Pershing # Seg Neutrophils % Seg Neuts % (Manual) Lymphocytes % (Manual) Monocytes % (Manual) Seg Neutrophils # Seg Neutrophils # Man Lymphocytes # (Manual) Monocytes # (Manual) PT 16.0 H INR 1.20 H APTT Heparin Anti-Xa Level 2.00 H POC ABG pH POC ABG pCO2 POC ABG pO2 POC Potassium POC Chloride Sodium Potassium Chloride Carbon Dioxide BUN Creatinine Glucose POC Glucose Lactic Acid Calcium Phosphorus Total Bilirubin AST ALT Total Creatine Kinase CK-MB (CK-2) Troponin T Total Protein Albumin Prealbumin HDL Cholesterol Salicylates Acetaminophen Crossmatch 11/12/18 11/12/18 11/12/18 17:00 17:29 20:13 WBC RBC Hgb POC Hgb Hct POC Hct MCV MCHC RDW Plt Count Lymph % (Auto) Pershing % (Auto) Pershing # Seg Neutrophils % Seg Neuts % (Manual) Lymphocytes % (Manual) Monocytes % (Manual) Seg Neutrophils # Seg Neutrophils # Man Lymphocytes # (Manual) Monocytes # (Manual) PT INR APTT Heparin Anti-Xa Level 1.97 H POC ABG pH POC ABG pCO2 POC ABG pO2 POC Potassium POC Chloride Sodium Potassium Chloride Carbon Dioxide BUN Creatinine Glucose POC Glucose 125 H Lactic Acid Calcium Phosphorus Total Bilirubin AST ALT Total Creatine Kinase CK-MB (CK-2) Troponin T Total Protein Albumin Prealbumin HDL Cholesterol Salicylates Acetaminophen Crossmatch See Detail 11/12/18 11/13/18 11/13/18 21:11 07:03 08:09 WBC RBC Hgb POC Hgb Hct POC Hct MCV MCHC RDW Plt Count Lymph % (Auto) Pershing % (Auto) Pershing # Seg Neutrophils % Seg Neuts % (Manual) Lymphocytes % (Manual) Monocytes % (Manual) Seg Neutrophils # Seg Neutrophils # Man Lymphocytes # (Manual) Monocytes # (Manual) PT INR APTT Heparin Anti-Xa Level 1.50 H POC ABG pH POC ABG pCO2 POC ABG pO2 POC Potassium POC Chloride Sodium Potassium Chloride Carbon Dioxide BUN Creatinine Glucose POC Glucose 128 H 137 H Lactic Acid Calcium Phosphorus Total Bilirubin AST ALT Total Creatine Kinase CK-MB (CK-2) Troponin T Total Protein Albumin Prealbumin HDL Cholesterol Salicylates Acetaminophen Crossmatch 11/13/18 11/13/18 11/13/18 15:05 15:36 19:19 WBC RBC Hgb POC Hgb 9.2 L Hct POC Hct 27 L MCV MCHC RDW Plt Count Lymph % (Auto) Pershing % (Auto) Pershing # Seg Neutrophils % Seg Neuts % (Manual) Lymphocytes % (Manual) Monocytes % (Manual) Seg Neutrophils # Seg Neutrophils # Man Lymphocytes # (Manual) Monocytes # (Manual) PT INR APTT Heparin Anti-Xa Level POC ABG pH POC ABG pCO2 POC ABG pO2 POC Potassium 5.3 H POC Chloride 97 L Sodium Potassium Chloride Carbon Dioxide BUN Creatinine Glucose POC Glucose 111 H 140 H Lactic Acid Calcium Phosphorus Total Bilirubin AST ALT Total Creatine Kinase CK-MB (CK-2) Troponin T Total Protein Albumin Prealbumin HDL Cholesterol Salicylates Acetaminophen Crossmatch 11/13/18 11/14/18 11/14/18 21:24 09:19 11:25 WBC RBC Hgb POC Hgb Hct POC Hct MCV MCHC RDW Plt Count Lymph % (Auto) Pershing % (Auto) Pershing # Seg Neutrophils % Seg Neuts % (Manual) Lymphocytes % (Manual) Monocytes % (Manual) Seg Neutrophils # Seg Neutrophils # Man Lymphocytes # (Manual) Monocytes # (Manual) PT INR APTT Heparin Anti-Xa Level POC ABG pH POC ABG pCO2 POC ABG pO2 POC Potassium POC Chloride Sodium Potassium Chloride Carbon Dioxide BUN Creatinine Glucose POC Glucose 164 H 204 H 124 H Lactic Acid Calcium Phosphorus Total Bilirubin AST ALT Total Creatine Kinase CK-MB (CK-2) Troponin T Total Protein Albumin Prealbumin HDL Cholesterol Salicylates Acetaminophen Crossmatch 11/14/18 11/14/18 11/14/18 17:35 21:28 22:56 WBC RBC 3.04 L Hgb 9.2 L POC Hgb Hct 27.2 L POC Hct MCV MCHC RDW Plt Count 461 H Lymph % (Auto) Pershing % (Auto) Pershing # Seg Neutrophils % Seg Neuts % (Manual) Lymphocytes % (Manual) Monocytes % (Manual) Seg Neutrophils # Seg Neutrophils # Man Lymphocytes # (Manual) Monocytes # (Manual) PT INR APTT Heparin Anti-Xa Level POC ABG pH POC ABG pCO2 POC ABG pO2 POC Potassium POC Chloride Sodium Potassium Chloride Carbon Dioxide BUN Creatinine Glucose POC Glucose 187 H 139 H Lactic Acid Calcium Phosphorus Total Bilirubin AST ALT Total Creatine Kinase CK-MB (CK-2) Troponin T Total Protein Albumin Prealbumin HDL Cholesterol Salicylates Acetaminophen Crossmatch 11/14/18 11/15/18 22:56 07:59 WBC RBC Hgb POC Hgb Hct POC Hct MCV MCHC RDW Plt Count Lymph % (Auto) Pershing % (Auto) Pershing # Seg Neutrophils % Seg Neuts % (Manual) Lymphocytes % (Manual) Monocytes % (Manual) Seg Neutrophils # Seg Neutrophils # Man Lymphocytes # (Manual) Monocytes # (Manual) PT INR APTT Heparin Anti-Xa Level POC ABG pH POC ABG pCO2 POC ABG pO2 POC Potassium POC Chloride Sodium 136 L Potassium Chloride Carbon Dioxide BUN Creatinine 0.5 L Glucose 180 H POC Glucose 145 H Lactic Acid Calcium 8.1 L Phosphorus Total Bilirubin AST ALT Total Creatine Kinase CK-MB (CK-2) Troponin T Total Protein Albumin Prealbumin HDL Cholesterol Salicylates Acetaminophen Crossmatch Allied health notes reviewed: nursing
[2018-11-15] MEDS: celeXA PO SCH (10:09)
[2018-11-15] MEDS: XANAX PO PRN (10:09)
[2018-11-15] MEDS: PEPCID PO SCH (10:09)
[2018-11-15] MEDS: COLACE PO SCH (10:10)
[2018-11-15] MEDS: HALFPRIN EC PO SCH (10:10)
[2018-11-15] MEDS: ELIQUIS PO SCH (10:10)
[2018-11-15] MEDS: LOPRESSOR PO SCH (10:11)
[2018-11-15] MEDS: SUBOXONE 2 MG-0.5 MG SL SCH (10:44)
[2018-11-15] MEDS: DUONEB *Not for PRN Use IH SCH ×2 (10:48→17:17)
--- NOTE | 2018-11-15 11:55 | Progress Note ---
Assessment and Plan 58-year-old male with multiple medical issues including multiple strokes status post partial craniectomy in March for prior strokes with bilateral lower extremity ischemia. 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 Hospitalist and neurology has cleared the patient for anticoagulation. Underwent left BKA, right open thrombectomy and aortic stenting and bilateral common iliac artery stenting but right EIA occluded requiring another open thrombectomy and stenting of the right iliac system. Left BKA had to be converted to AKA. L [employer] and right PT palpable. Right groin incision c/d/i. No hematomas. Left above knee amputation stump overall looks good. Change daily. Continue Eliquis. Pain medication should be optimized. Will change suboxone back to twice a day. Subjective Date of service: 11/15/18 Principal diagnosis: Ac hypercapnic hypoxemic Resp failure; Drug OD; AE-COPD; NINOSKA; Seizures Interval history: Palpable right posterior tibial. Palpable left common femoral artery. Right forefoot with dry gangrene. Left above knee amputation changed. Old blood at the staple line. small amount of bruising of skin noted. AKA healthy overall with staple line intact. Objective - Constitutional Vitals: Vital Signs - 12hr 11/15/18 11/15/18 11/15/18 10:11 10:50 11:00 Pulse Rate 62 Pulse Rate [ 64 66 Posterior] Respiratory 19 17 Rate [Posterior ] Blood Pressure 112/60 O2 Sat by Pulse Oximetry 11/15/18 11:03 Pulse Rate Pulse Rate [ Posterior] Respiratory Rate [Posterior ] Blood Pressure O2 Sat by Pulse 95 Oximetry General appearance: Present: mild distress (left aka) - EENT Eyes: EOM intact ENT: hearing intact - Respiratory Respiratory effort: normal Extremities: abnormal (see subjective) - Psychiatric Psychiatric: cooperative, agitated - Labs CBC & Chem 7: 11/14/18 22:56 11/14/18 22:56 Labs: Abnormal lab results 11/12/18 11/14/18 11/14/18 Range/Units 17:00 17:35 21:28 RBC (3.65-5.03) M/mm3 Hgb (11.8-15.2) gm/dl Hct (35.5-45.6) % Plt Count (140-440) K/mm3 Sodium (137-145) mmol/L Creatinine (0.8-1.5) mg/dL Glucose (75-100) mg/dL POC Glucose 187 H 139 H (70-105) Calcium (8.4-10.2) mg/dL Crossmatch See Detail 11/14/18 11/14/18 11/15/18 Range/Units 22:56 22:56 07:59 RBC 3.04 L (3.65-5.03) M/mm3 Hgb 9.2 L (11.8-15.2) gm/dl Hct 27.2 L (35.5-45.6) % Plt Count 461 H (140-440) K/mm3 Sodium 136 L (137-145) mmol/L Creatinine 0.5 L (0.8-1.5) mg/dL Glucose 180 H (75-100) mg/dL POC Glucose 145 H (70-105) Calcium 8.1 L (8.4-10.2) mg/dL Crossmatch Medications & Allergies - Medications Allergies/Adverse Reactions: Allergies No Known Allergies Allergy (Verified 10/31/14 11:20) Home Medications: Home Medications Medication Instructions Recorded Confirmed Last Taken Type Gabapentin [Neurontin] 90 mg PO Q8HR 04/22/15 11/01/18 04/21/15 History ALPRAZolam [Xanax TAB] 1 mg PO TID PRN #30 tablet 03/28/16 11/01/18 Unknown Rx Albuterol Sulfate [Ventolin HFA] 2 puff IH Q4H PRN #1 [id number] 03/28/16 11/01/18 Unknown Rx Ciprofloxacin HCl [Ciprofloxacin 500 mg PO Q12HR #30 tab 03/28/16 11/01/18 Unknown Rx TAB] Citalopram [celeXA] 10 mg PO QDAY #30 tablet 03/28/16 11/01/18 Unknown Rx Nicotine [Habitrol] 14 mg TD QDAY #30 patch 03/28/16 11/01/18 Unknown Rx Sitagliptin Phos/Metformin HCl 1 tab PO QDAY #30 tbmp.24hr 03/28/16 11/01/18 Unknown Rx [Janumet XR 100-1,000 mg] oxyCODONE /ACETAMINOPHEN [Percocet 1 tab PO Q6H PRN #60 tablet 03/28/16 11/01/18 Unknown Rx 5/325 mg] Active Medications: Generic Name Dose Route Start Last Admin Trade Name Freq PRN Reason Stop Dose Admin Acetaminophen 650 mg 10/11/18 04:04 10/21/18 22:21 Tylenol PO 650 mg Q4H PRN Administration Pain MILD(1-3)/Fever >100.5/HOLLINS Albuterol 2.5 mg 10/19/18 00:54 Proventil IH Q4HRT PRN Shortness Of Breath Albuterol/Ipratropium 1 ampul 10/19/18 08:00 11/15/18 10:48 Duoneb *Not For Prn Use* IH 1 ampul TIDRT ISAAC Administration Alprazolam 1 mg 10/20/18 13:06 11/15/18 10:09 Xanax PO 1 mg TID PRN Administration Anxiety Apixaban 5 mg 11/13/18 22:00 11/15/18 10:10 Eliquis PO 5 mg Q12HR ISAAC Administration Protocol Aspirin 81 mg 11/01/18 16:00 11/15/18 10:10 Halfprin Ec PO 81 mg QDAY ISAAC Administration Buprenorphine HCl 1 each 11/14/18 10:00 11/15/18 10:44 Suboxone 2 Mg-0.5 Mg SL 1 each QDAY ISAAC Administration Citalopram Hydrobromide 20 mg 11/05/18 10:00 11/15/18 10:09 Celexa PO 20 mg QDAY ISAAC Administration Dextrose 0 ml 10/11/18 03:57 10/11/18 10:18 D50w (25gm) Syringe IV 10 ml PRN PRN Administration Hypoglycemia Docusate Sodium 100 mg 11/04/18 22:00 11/15/18 10:10 Colace PO 100 mg BID ISAAC Administration Famotidine 20 mg 10/15/18 10:00 11/15/18 10:09 Pepcid PO 20 mg BID ISAAC Administration Sodium Chloride 1,000 mls @ 100 mls/hr 11/13/18 16:00 11/14/18 23:12 Nacl 0.9% 1000 Ml IV 100 mls/hr DIRECT ISAAC Administration Insulin Human Regular 0 units 10/17/18 11:30 11/15/18 07:30 Humulin R SUB-Q Not Given ACHS ISAAC Protocol Metoprolol Tartrate 25 mg 10/18/18 22:00 11/15/18 10:11 Lopressor PO 25 mg BID ISAAC Administration Metoprolol Tartrate 2.5 mg 10/18/18 18:51 10/18/18 22:19 Lopressor IV 2.5 mg Q6H PRN Administration Tachyarrhythmias Naloxone HCl 0.1 mg 10/29/18 16:03 Narcan 0.4 Mg/1 Ml IV Q2MIN PRN Res Rate </= 8 or 02 SAT < 92% Ondansetron HCl 4 mg 10/11/18 04:04 11/01/18 22:12 Zofran IV 4 mg Q8H PRN Administration Nausea And Vomiting Oxycodone/Acetaminophen 1 tab 11/11/18 10:21 11/15/18 10:47 Percocet 5/325 PO 1 tab Q4H PRN Administration Pain, Moderate (4-6)
--- NOTE | 2018-11-15 12:12 | Discharge Summary ---
Providers - Providers Date of Admission: 10/11/18 04:02 Date of discharge: 11/15/18 Attending physician: BALJINDER BECKWITH 10/11/18 04:05 Consult to Dietitian/Nutrition [CONS] Routine Physician Instructions: Reason For Exam: Reason for Consult: Malnutrition 10/11/18 05:25 Consult to Physician [CONS] Routine Comment: Consulting Provider: GUILLAUME YBARRA Physician Instructions: Reason For Exam: acute respiratory failure 10/11/18 12:36 Consult to Dietitian/Nutrition [CONS] Routine Physician Instructions: Reason For Exam: Reason for Consult: Write/Manage Tube Feeding Consult to PICC Line RN [CONS] Routine Reason For Exam: Need for central access Type Line:: PICC 10/11/18 12:38 Consult to Dietitian/Nutrition [CONS] Routine Physician Instructions: Reason For Exam: Reason for Consult: Evaluate nutritional intake 10/12/18 16:07 Consult to Physician [CONS] Routine Comment: Consulting Provider: LIONEL SORENSEN Physician Instructions: Reason For Exam: fever, elevated WBC 10/13/18 03:38 Occupational Therapy Evaluate and Treat [CONS] Routine Comment: Reason For Exam: Neuro deficits Physical Therapy Evaluation and Treat [CONS] Routine Comment: Full Weight bearing right foot Reason For Exam: eval and treat Speech Therapy Evaluation and Treat [CONS] Routine Reason For Exam: swallow eval 10/13/18 03:58 Consult to Physician [CONS] Routine Comment: Consulting Provider: NUBIA NOYOLA Physician Instructions: Reason For Exam: neurological changes, abnormal CT of the brain 10/13/18 10:55 Consult to Physician [CONS] Stat Comment: Consulting Provider: ERON MIX Physician Instructions: Reason For Exam: biltaeral arterial LE thrombi 10/13/18 12:09 Consult to Physician [CONS] Routine Comment: Consulting Provider: MARTIR VICKERS Physician Instructions: Reason For Exam: arterial thrombosis 10/13/18 14:28 Consult to Physician [CONS] Routine Comment: Consulting Provider: LATOYA LIVE Physician Instructions: Reason For Exam: acute CVA 10/16/18 14:23 Speech Therapy Evaluation and Treat [CONS] Routine Reason For Exam: extubated 10/17/18 13:32 Consult to Wound/ET Nurse [CONS] Routine Reason For Exam: wound eval left leg Vascular wound. 10/18/18 13:42 Speech Therapy Evaluation and Treat [CONS] Urgent Reason For Exam: Need to be re-evaluated per MD 10/18/18 13:43 Consult to Dietitian/Nutrition [CONS] Routine Physician Instructions: Assess nutrtn needs, initiate, modify, manage TF Reason For Exam: Reason for Consult: Write/Manage Tube Feeding Reason for Consult: Write/Manage Tube Feeding 10/26/18 14:46 Speech Therapy Evaluation and Treat [CONS] Routine Reason For Exam: reevalaution 10/27/18 14:25 Consult to Dietitian/Nutrition [CONS] Routine Physician Instructions: Reason For Exam: needs nutrition after major surgery Reason for Consult: Pt needs oral supplement 11/02/18 08:10 Consult to Case Management [CONS] Routine Services Needed at Discharge: Wireless Communications Engineer Notified:: lamar Additional Physician Instructions: SNF Placement as per family request: Please send out Mike. 11/05/18 10:46 Occupational Therapy Evaluate and Treat [CONS] Routine Comment: Reason For Exam: ADLs evaluation Physical Therapy Evaluation and Treat [CONS] Routine Comment: Reason For Exam: gait evaluation/ambulatory dysfunction 11/07/18 08:39 Consult to Wound/ET Nurse [CONS] Routine Reason For Exam: wound eval left stump, right foot Physical Therapy Evaluation and Treat [CONS] Routine Comment: Reason For Exam: deconditioning Primary care physician: PITER CRUZ Hospitalization Condition: Fair Hospital course: Patient is a 58 yo man with a history of COPD, diabetes mellitus type 2, hypertension, asthma, peripheral neuropathy, chronic hepatitis C virus, panic attack. anxiety disorder, polysubstance abuse including alcohol, cocaine and heroin who presented to [facility] ED on 10/11/18 with AMS. He was diagnosed with septic shock due to pneumonia, placed on Antibiotics and vasopressors. He was also diagnosed with DKA/respiratory failure/Status epilepticus/ARF. Patient s/p left BKA, right open thrombectomy and aortic stenting and bilateral common iliac artery stenting but right EIA occluded requiring another open thrombectomy and stenting of the right iliac system. s/p left AKA 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 followed by revascularization right leg on 10/31/18. Left below-knee amputation converted to left AKA on 11/13 -Acute/subacute right CVA, Initial CT head, no acute finding, 10/13/18 found to have left-sided weakness, MRI brain showed numerous acute/subacute multilobar infarcts involving the cerebrum and cerebellum including Hemorrhagic transformation of the right frontal and biparietal lobes, was Not a candidate for tPA, monitor off aspirin per teleneurology, QUIQUE ; no thrombus or shunt, -Severe sepsis with shock; resolved. Probably due to LLL aspiration pneumonia, completed total 7 days of antibiotics, off vasopressors -Paroxysmal atrial fibrillation. on Eliquis -LLL pneumonia: completed treatment -Acute respiratory failure with hypoxia and hypercapnia: Requiring intubation, s/p extubation, treat with nebs and supplemental O2 as needed -DKA, resolved: -Acute toxic/metabolic encephalopathy, improved -Seizure disorder; seizure precautions, no new episodes of seizure, Ativan when necessary, neurology did not recommend antiepileptic medications -Elevated troponin/NSTEMI type 2, Echocardiogram reveal EF 25-30%, Cardiology consulted, medical Management, -Acute systolic CHF, EF 25-30%, anti-failure medications, Cardiology managed. -Chronic hypotension. Consider Midodrine. -Axcute Kidney Injury Etiology secondary to ATN and vasomotor nephropathy, poa, resolved -Hyperkalemia, resolved -Abnormal LFT, Probably due to sepsis, resolving and chronic hepatitis C virus infection, Abdominal US showed no sign of cirrhosis. -Anemia, appears acute on chronic AOCD: monitor closely on iv heparin drip -Severe protein calorie malnutrition, BMI 14.8; nutrition supplements, Dietitian consulted -DVT prophylaxis with Eliquis -GI prophylaxis with famotidine -Tobacco abuse. Patient with a long smoking history of one pack per day or more since age 9. Patient was counseled on smoking cessation. -Disposition: patient discharged to LTAC on 11/15/18 Disposition: [id number] - Discharge Diagnoses (1) Acute CVA (cerebrovascular accident) Status: Acute (2) Acute respiratory failure Status: Acute (3) Arterial thrombosis Status: Acute (4) Atrial fibrillation Status: Acute (5) Diabetes mellitus with hyperglycemia Status: Acute (6) Gangrene Status: Acute (7) Overdose Status: Acute Qualifiers: Encounter type: initial encounter Injury intent: undetermined intent Qualified Code(s): T50.904A - Poisoning by unspecified drugs, medicaments and biological substances, undetermined, initial encounter (8) Paroxysmal atrial fibrillation Status: Acute (9) Seizure Status: Acute (10) Sepsis Status: Acute Qualifiers: Sepsis type: sepsis due to unspecified organism Qualified Code(s): A41.9 - Sepsis, unspecified organism (11) PVD (peripheral vascular disease) Status: Chronic (12) DKA (diabetic ketoacidoses) Status: Acute (13) Acute systolic CHF (congestive heart failure) Status: Acute Core Measure Documentation - Palliative Care Palliative Care/ Comfort Measures: Not Applicable - Core Measures Any of the following diagnoses?: heart failure, stroke - Heart Failure Discharge Requirements JACOB/ARB for LVSD if EF <40%: No Reason for no JACOB/ARB: Renal impairment Beta davonte at discharge: Yes - Stroke Discharge Requirements Statin for LDL = or >70 mg/dl on DC: Yes Anticoag for atrial fib/atrial flutter: Not Applicable Antithrombotic for ischemic stroke: Yes Exam - Constitutional Vitals: Temp Pulse Resp BP Pulse Ox 98.5 F 66 17 112/60 95 11/14/18 22:10 11/15/18 11:00 11/15/18 11:00 11/15/18 10:11 11/15/18 11:03 Plan Activity: advance as tolerated Diet: low fat, low cholesterol, low salt, diabetic Additional Instructions: 1.Follow up with Dr. Eron Mix, vasc Surg in 1 month. 2.Please do not remove jordon- to be determined after evaluation by Dr. Eron Mix
[2018-11-15 16:43] LABS: Hematocrit 28.1 % (35.5-45.6); Hemoglobin 9.3 gm/dl (11.8-15.2)
[2018-11-15] MEDS ORDERED: SUBOXONE 2 MG-0.5 MG SL SCH (22:00)
== END 2018-11-15 17:00 | DRG 853 ==
LOC: ED 23:47 → EEVIPCON 10-11 04:02 → CC1 10-11 04:02 → 4A 10-17 16:42 → 3A 10-21 17:43 → CC1 10-29 19:01 → IMCU 11-01 18:42 → 3A 11-03 14:57
PROVIDERS: ADMIT Internal Medicine; ATTEND Internal Medicine
PROC: 5A1955Z Respiratory Ventilation, Greater than 96 Consecutive Hours (ICD-10-PCS; principal; 2018-10-11)
PROC: 0BH17EZ Insertion of Endotracheal Airway into Trachea, Via Natural or Artificial Opening (ICD-10-PCS; 2018-10-11)
PROC: 4A033R1 Measurement of Arterial Saturation, Peripheral, Percutaneous Approach (ICD-10-PCS; 2018-10-11)
PROC: 06HY33Z Insertion of Infusion Device into Lower Vein, Percutaneous Approach (ICD-10-PCS; 2018-10-11)
PROC: 02HV33Z Insertion of Infusion Device into Superior Vena Cava, Percutaneous Approach (ICD-10-PCS; 2018-10-12)
PROC: 5A09357 Assistance with Respiratory Ventilation, Less than 24 Consecutive Hours, Continuous Positive Airway Pressure (ICD-10-PCS; 2018-10-19)
PROC: 5A09357 Assistance with Respiratory Ventilation, Less than 24 Consecutive Hours, Continuous Positive Airway Pressure (ICD-10-PCS; 2018-10-21)
PROC: B41D1ZZ Fluoroscopy of Aorta and Bilateral Lower Extremity Arteries using Low Osmolar Contrast (ICD-10-PCS; 2018-10-26)
PROC: 0Y6J0Z1 Detachment at Left Lower Leg, High, Open Approach (ICD-10-PCS; 2018-10-29)
PROC: 04CN0ZZ Extirpation of Matter from Left Popliteal Artery, Open Approach (ICD-10-PCS; 2018-10-29)
PROC: 04CL0ZZ Extirpation of Matter from Left Femoral Artery, Open Approach (ICD-10-PCS; 2018-10-29)
PROC: 04CJ0ZZ Extirpation of Matter from Left External Iliac Artery, Open Approach (ICD-10-PCS; 2018-10-29)
PROC: 047034Z Dilation of Abdominal Aorta with Drug-eluting Intraluminal Device, Percutaneous Approach (ICD-10-PCS; 2018-10-29)
PROC: 047D34Z Dilation of Left Common Iliac Artery with Drug-eluting Intraluminal Device, Percutaneous Approach (ICD-10-PCS; 2018-10-29)
PROC: 047C34Z Dilation of Right Common Iliac Artery with Drug-eluting Intraluminal Device, Percutaneous Approach (ICD-10-PCS; 2018-10-29)
PROC: 047H34Z Dilation of Right External Iliac Artery with Drug-eluting Intraluminal Device, Percutaneous Approach (ICD-10-PCS; 2018-10-31)
PROC: 047C34Z Dilation of Right Common Iliac Artery with Drug-eluting Intraluminal Device, Percutaneous Approach (ICD-10-PCS; 2018-10-31)
PROC: 04CH0ZZ Extirpation of Matter from Right External Iliac Artery, Open Approach (ICD-10-PCS; 2018-10-31)
PROC: B41F1ZZ Fluoroscopy of Right Lower Extremity Arteries using Low Osmolar Contrast (ICD-10-PCS; 2018-10-31)
PROC: 0Y6J0Z3 Detachment at Left Lower Leg, Low, Open Approach (ICD-10-PCS; 2018-11-13)
DX: A41.9 Sepsis, unspecified organism (principal); R65.21 Severe sepsis with septic shock; J96.01 Acute respiratory failure with hypoxia; J96.02 Acute respiratory failure with hypercapnia; G92 Toxic encephalopathy; E43 Unspecified severe protein-calorie malnutrition; J18.1 Lobar pneumonia, unspecified organism; I50.21 Acute systolic (congestive) heart failure; I21.A1 Myocardial infarction type 2; N17.0 Acute kidney failure with tubular necrosis; I63.9 Cerebral infarction, unspecified; I61.9 Nontraumatic intracerebral hemorrhage, unspecified; Z68.1 Body mass index [BMI] 19.9 or less, adult; J44.1 Chronic obstructive pulmonary disease with (acute) exacerbation; G81.94 Hemiplegia, unspecified affecting left nondominant side; E11.52 Type 2 diabetes mellitus with diabetic peripheral angiopathy with gangrene; T40.2X1A Poisoning by other opioids, accidental (unintentional), initial encounter; B18.2 Chronic viral hepatitis C; E87.5 Hyperkalemia; I11.0 Hypertensive heart disease with heart failure; I48.0 Paroxysmal atrial fibrillation; G40.909 Epilepsy, unspecified, not intractable, without status epilepticus; E11.65 Type 2 diabetes mellitus with hyperglycemia; E11.40 Type 2 diabetes mellitus with diabetic neuropathy, unspecified; T17.990A Other foreign object in respiratory tract, part unspecified in causing asphyxiation, initial encounter; X58.XXXA Exposure to other specified factors, initial encounter; R94.5 Abnormal results of liver function studies; F41.9 Anxiety disorder, unspecified; F14.90 Cocaine use, unspecified, uncomplicated; F11.10 Opioid abuse, uncomplicated; Z71.51 Drug abuse counseling and surveillance of drug abuser; Z79.01 Long term (current) use of anticoagulants; Z79.51 Long term (current) use of inhaled steroids; Z79.899 Other long term (current) drug therapy; Z86.73 Personal history of transient ischemic attack (TIA), and cerebral infarction without residual deficits; Y93.89 Activity, other specified; Y92.098 Other place in other non-institutional residence as the place of occurrence of the external cause; Y99.8 Other external cause status
CPT/HCPCS: 36200; 36415; 36600; 36620; 70450; 70544; 70551; 71045; 71275; 74018; 75625; 75716; 76705; 80048; 80053; 80061; 80202; 80307; 80320; 81001; 82140; 82550; 82553; 82803; 82962; 83735; 84100; 84134; 84484; 85007; 85014; 85018; 85025; 85027; 85049; 85520; 85610; 85730; 86022; 86850; 86870; 86880; 86900; 86901; 86920; 86922; 87040; 87070; 87086; 87205; 88304; 88307; 88311; 93005; 93010; 93306; 93880; 93925; 94002; 94003; 94640; 94660; 94760; 99285; G0378; A6250; C1725; C1757; C1760; C1769; C1874; C1894; G0480; J0282; J0295; J0330; J0456; J0690; J0692; J1100; J1170; J1644; J1650; J1815; J2060; J2250; J2270; J2370; J2405; J2543; J2704; J2997; J3010; J3370; J3475; J3490; J7030; J7040; J7042; J7050; J7070; J7120; Q9966; Q9967